=== PATIENT | male | born 1955 | race Two or more races ===

== ENCOUNTER 2020-02-05 05:52 | Inpatient (IN) | payer OTHER, BC ==
[~2020-02-05] VITALS: Ht 177.8 cm; Wt 110.2 kg
[2020-02-05 05:58] VITALS: BP 159/107
--- NOTE | 2020-02-05 05:58 | NUR ---
ED Nurse Note: pt ambulated into ed from home CO left sided chest pain x 1 day 12/10 with difficulty taking deep breaths. 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 Pt states he noticed intial onset of chest at this time. pt states pain increased after leaving work for the day and was unable to get up to call for help or take himself to the hospital. Pt aao x 4, grimacing, restless, ambulatory with steady gait. Awaiting further orders. Awaiting ERMD at bedside. Pt placed in bed, in gown, on monitor.
--- NOTE | 2020-02-05 06:00 | NUR ---
ED Nurse Note: ERMD at bedside
--- NOTE | 2020-02-05 06:03 | NUR ---
ED Nurse Note: RN at bedside for EKG
--- NOTE | 2020-02-05 06:15 | NUR ---
ED Nurse Note: all medications administered, pt tolerated well no ss of distress noted. will continue to monitor.
--- NOTE | 2020-02-05 06:19 | Emergency Room Report ---
History of Present Illness General Chief Complaint: Pain Source: Patient Present Illness HPI Patient is a 64-year-old male denies any significant past medical history presents to the ER complaining of chest pain. 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 He states it is diffuse. He states that it is intermittent. He denies any dizziness, diaphoresis, fever or chills. He denies any cough. He states that the pain is exacerbated by movement and deep inspiration. He complains of paresthesias. He denies any focal weakness. He denies any history of similar symptoms in the past. Patient states that he is a current smoker. He has not taken any medications for his pain. Allergies: Coded Allergies: No Known Allergies (Unverified , 02/05/20) COVID-19 Screening Contact w/high risk pt: Yes Experienced COVID-19 symptoms?: No COVID-19 Testing performed BASE PLY HAND: No Patient History Reviewed Nursing Documentation: PMH: Agreed; PSxH: Agreed Nursing Documentation-PMH Past Medical History: No Stated History Review of Systems All Other Systems: negative except mentioned in HPI Physical Exam Vital Signs Date Time Temp Pulse Resp B/P (MAP) Pulse Ox O2 Delivery O2 Flow Rate FiO2 02/05/20 05:53 98.2 96 15 159/107 (124) 93 Room Air Sp02 EP Interpretation: reviewed, normal General Appearance: alert, GCS 15, non-toxic, mild distress Head: normocephalic, atraumatic Eyes: bilateral eye normal inspection, bilateral eye PERRL ENT: hearing grossly normal, normal pharynx, no angioedema, normal voice Neck: full range of motion, supple/symm/no masses Respiratory: chest non-tender, rhonchi, speaking full sentences, other Cardiovascular #1: regular rate, rhythm, normal capillary refill Gastrointestinal: normal bowel sounds, non tender, soft, non-distended, no guarding, no rebound Rectal: deferred Musculoskeletal: normal range of motion, no calf tenderness, no lower extremity edema Neurologic: tip finisher III-XII nml as tested, oriented x3 Psychiatric: no suicidal/homicidal ideation Skin: other - BL LE venous stasis dermatitis Lymphatic: no adenopathy Medical Decision Making Diagnostic Impression: Primary Impression: Chest pain Additional Impression: Pneumonia ER Course PT given one SL nitro. On reevaluation he states that his pain has improved. He states that he feels like he can breathe easier. Second sublingual nitro has been administered. Patient also given 325 mg p.o. aspirin Patient's x-ray and CAT scan consistent with pneumonia. Blood cultures have been drawn. Patient started on azithromycin as well as cefepime. COVID-19 PCR is pending. 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 Patient has been started on Lovenox prophylactically. Will hold on Decadron as patient is not hypoxic. Laboratory Tests Test 02/05/20 06:11 02/05/20 08:45 02/05/20 09:00 White Blood Count 11.3 K/UL (4.8-10.8) H Red Blood Count 5.39 M/UL (4.70-6.10) Hemoglobin 15.8 G/DL (14.2-18.0) Hematocrit 45.1 % (42.0-52.0) Mean Corpuscular Volume 84 FL (80-99) Mean Corpuscular Hemoglobin 29.4 PG (27.0-31.0) Mean Corpuscular Hemoglobin Concent 35.1 G/DL (32.0-36.0) Red Cell Distribution Width 13.3 % (11.6-14.8) Platelet Count 250 K/UL (150-450) Mean Platelet Volume 6.9 FL (6.5-10.1) Neutrophils (%) (Auto) 76.1 % (45.0-75.0) H Lymphocytes (%) (Auto) 13.9 % (20.0-45.0) L Monocytes (%) (Auto) 7.8 % (1.0-10.0) Eosinophils (%) (Auto) 1.1 % (0.0-3.0) Basophils (%) (Auto) 1.1 % (0.0-2.0) Prothrombin Time 10.9 SEC (9.30-11.50) Prothrombin Time INR 1.0 (0.9-1.1) Activated Partial Thromboplast Time 28 SEC (23-33) D-Dimer 0.32 mg/L FEU (0.00-0.49) Sodium Level 139 MMOL/L (136-145) Potassium Level 4.2 MMOL/L (3.5-5.1) Chloride Level 104 MMOL/L (98-107) Carbon Dioxide Level 26 MMOL/L (21-32) Anion Gap 9 mmol/L (5-15) Blood Urea Nitrogen 11 mg/dL (7-18) Creatinine 0.9 MG/DL (0.55-1.30) Estimated Glomerular Filtration Rate > 60 mL/min (>60) Glucose Level 120 MG/DL (74-106) H Calcium Level 8.4 MG/DL (8.5-10.1) L Magnesium Level 1.8 MG/DL (1.8-2.4) Total Bilirubin 0.7 MG/DL (0.2-1.0) Aspartate Amino Transferase (AST) 23 U/L (15-37) Alanine Aminotransferase (ALT) 62 U/L (12-78) Alkaline Phosphatase 83 U/L (46-116) Troponin I 0.004 ng/mL (0.000-0.056) 0.015 ng/mL (0.000-0.056) Pro-B-Type Natriuretic Peptide 133 pg/mL (0-125) H Total Protein 7.4 G/DL (6.4-8.2) Albumin 3.8 G/DL (3.4-5.0) Globulin 3.6 g/dL Albumin/Globulin Ratio 1.1 (1.0-2.7) Lactic Acid Level 1.70 mmol/L (0.4-2.0) Microbiology Date/Time Source Procedure Growth Status 02/05/20 09:25 Nasopharynx SARS-CoV-2 RdRp Gene Assay - Final Complete EKG Diagnostic Results Troponin ordered: Yes When was troponin ordered?: Feb 05, 2020 EKG Time: 06:06 EP Interpretation: Camelia Owens MD Rate: normal - 95 bpm Rhythm: NSR ST Segments: no acute changes ASA given to the pt in ED: Yes Rhythm Strip Diag. Results Rhythm Strip Time: 06:34 EP Interpretation: yes - Camelia Owens MD Rate: 103 bpm Rhythm: no PVC's, no ectopy, other - Sinus tachycardia Chest X-Ray Diagnostic Results Chest X-Ray Diagnostic Results : Chest X-Ray Ordered: Yes # of Views/Limited/Complete: 1 View Indication: Chest Pain EP Interpretation: Yes Interpretation: no effusion, no pneumothorax, other - Right lower lobe infiltrate Impression: Other - Pneumonia Electronically Signed by: Camelia Owens MD Last Vital Signs Date Time Temp Pulse Resp B/P (MAP) Pulse Ox O2 Delivery O2 Flow Rate FiO2 02/05/20 05:53 98.2 96 15 159/107 (124) 93 Room Air Disposition: ADMITTED INPATIENT - Telemetry Condition: Critical Physician Consult: Dr. Mata Referrals: NOT CHOSEN IPA/,REFERRING (PCP) Additional Instructions: Please note that this report is being documented using [employer] technology. This can lead to erroneous entry secondary to incorrect interpretation by the dictating instrument. Camelia Owens M.D. Feb 05, 2020 06:19
[2020-02-05] MEDS: Nitroglycerin Subl 0.4mg tab SL PRN (06:26)
--- NOTE | 2020-02-05 06:30 | NUR ---
ED Nurse Note: pt received 3 tabs of SL nitroglycerin per ERMD. Pt states pain 10/10, HR 106 BP 166/100 before medication administration. Pt states pain 7/10 after inital dose with increased ability to breathe. pt recieved second dose of NTG and reports pain 6/10 with increased ability to breathe. pt recieved final dose of SL NTG and reports pain 4/10 with increased ability to breathe. Pt HR 98, BP 149/94. ERMD aware. will continue to monitor.
--- NOTE | 2020-02-05 06:40 | NUR ---
ED Nurse Note: all medications administered, pt tolerated well no ss of distress noted. will continue to monitor.
[2020-02-05] MEDS ORDERED: fentaNYL 100 mcg/2 mL IV ONE (06:45)
[2020-02-05 06:58] LABS: BASOPHILS % (AUTO) 1.1 % (0.0-2.0); EOSINOPHILS % (AUTO) 1.1 % (0.0-3.0); HEMATOCRIT 45.1 % (42.0-52.0); HEMOGLOBIN 15.8 G/DL (14.2-18.0); LYMPHOCYTES % (AUTO) 13.9 % (20.0-45.0); MEAN CORPUSCULAR VOLUME 84 FL (80-99); MONOCYTES % (AUTO) 7.8 % (1.0-10.0); NEUTROPHILS % (AUTO) 76.1 % (45.0-75.0); PLATELET COUNT 250 K/UL (150-450); RED BLOOD COUNT 5.39 M/UL (4.70-6.10); RED CELL DISTRIBUTION WIDTH 13.3 % (11.6-14.8); WHITE BLOOD COUNT 11.3 K/UL (4.8-10.8)
--- NOTE | 2020-02-05 07:07 | NUR ---
HAND-OFF: Report given to Torie Arnold Rn.
[2020-02-05 07:11] LABS: ANION GAP 9 mmol/L (5-15); BLOOD UREA NITROGEN 11 mg/dL (7-18); CALCIUM 8.4 MG/DL (8.5-10.1); CARBON DIOXIDE 26 MMOL/L (21-32); CHLORIDE 104 MMOL/L (98-107); CREATININE 0.9 MG/DL (0.55-1.30); POTASSIUM 4.2 MMOL/L (3.5-5.1); SODIUM 139 MMOL/L (136-145)
[2020-02-05 07:21] LABS: ALANINE AMINOTRANSFERASE 62 U/L (12-78); ALBUMIN 3.8 G/DL (3.4-5.0); ALBUMIN/GLOBULIN RATIO 1.1 (1.0-2.7); ALKALINE PHOSPHATASE 83 U/L (46-116); ASPARTATE AMINO TRANSFERASE 23 U/L (15-37); BILIRUBIN,TOTAL 0.7 MG/DL (0.2-1.0)
[2020-02-05] MEDS ORDERED: Omnipaque 350 100ml vial INJ PRN (07:30)
--- NOTE | 2020-02-05 07:36 | Diagnostic Imaging Report ---
EXAM: XR Chest, 1 View CLINICAL HISTORY: CP TECHNIQUE: Frontal view of the chest. COMPARISON: No relevant prior studies available. FINDINGS: Lungs: There is a patchy right basilar infiltrate indeterminate between atelectasis and pneumonia. Pleural space: Unremarkable. No pneumothorax. Heart: Unremarkable. No cardiomegaly. Mediastinum: Unremarkable. Bones/joints: Unremarkable. IMPRESSION: There is a patchy right basilar infiltrate indeterminate between atelectasis and pneumonia. Progress films recommended
[2020-02-05] MEDS ORDERED: Azithromycin 500 MG in NS 275 ML IV ONE (08:00)
[2020-02-05] MEDS ORDERED: Cefepime HCl 2 GM in D5W 55 ML IVPB ONE (08:00)
--- NOTE | 2020-02-05 08:40 | NUR ---
ED Nurse Note: established IV site on R AC 20G. Pt on bed, AOx4, VSS, noted with consistent back pain upon change of position, lactic, blood cultures and routine covid, collected, sent to labs.
--- NOTE | 2020-02-05 08:52 | NUR ---
ED Nurse Note: Pt taken to CT on stable condition.
--- NOTE | 2020-02-05 09:10 | NUR ---
ED Nurse Note: repeat trop collected, sent to lab
--- NOTE | 2020-02-05 09:30 | NUR ---
ED Nurse Note: rapid covid sent to lab
--- NOTE | 2020-02-05 09:40 | Diagnostic Imaging Report ---
EXAM: CT Angiography Chest With Intravenous Contrast CLINICAL HISTORY: PAIN TECHNIQUE: Axial computed tomographic angiography images of the chest with intravenous contrast. CTDI is 51.20 mGy and DLP is 504.80 mGy-cm. One or more of the following dose reduction techniques were used: automated exposure control, adjustment of the mA and/or kV according to patient size, use of iterative reconstruction technique. MIP reconstructed images were created and reviewed. COMPARISON: No relevant prior studies available. FINDINGS: Pulmonary arteries: Unremarkable. No pulmonary embolism. Aorta: No acute findings. No thoracic aortic aneurysm. Lungs: There are mild subpleural ground-glass and consolidating infiltrates in the dependent portions of both lower lobes and to lesser degree the upper lobes consistent with bilateral pneumonia. The infiltrates are typical for Covid 19. Pleural space: Unremarkable. No significant effusion. No pneumothorax. Heart: Unremarkable. No cardiomegaly. No significant pericardial effusion. No evidence of RV dysfunction. Bones/joints: No acute fracture. No dislocation. Soft tissues: Unremarkable. Lymph nodes: Unremarkable. No enlarged lymph nodes. IMPRESSION: There are mild subpleural ground-glass and consolidating infiltrates in the dependent portions of both lower lobes and to lesser degree the upper lobes consistent with bilateral pneumonia. The infiltrates are typical for Covid 19. No evidence of pulmonary embolus.
[2020-02-05 10:46] VITALS: BP 146/96
--- NOTE | 2020-02-05 12:55 | Cardiology Report ---
APPROVED REPORT EKG Measurement Heart [id number] <Conclusion> Normal sinus rhythm ST & T wave abnormality, consider inferior ischemia Abnormal ECG
[2020-02-05] MEDS ORDERED: Enoxaparin 40mg Inj SUBQ SCH (13:00)
[2020-02-05] MEDS ORDERED: Milk of Magnesia 30ml Ud ORAL PRN (13:15)
[2020-02-05] MEDS ORDERED: Miralax 17gm pkt ORAL PRN (13:15)
--- NOTE | 2020-02-05 13:45 | History and Physical Report ---
DATE OF ADMISSION: 02/05/2020 HISTORY OF PRESENT ILLNESS: This is a 64-year-old patient who was seen in the emergency room with complaints of chest pain and shortness of breath. He also reports shortness of breath. 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 The patient was seen and evaluated. He reports that he has diffuse back pain and chest pain. He also reported left-sided chest pain. He underwent imaging studies and a CT angiogram in the emergency room which did not show any pulmonary embolism; however, there were by bilateral ground-glass and consolidating infiltrates on chest CT suggestive of a pneumonic process. PAST MEDICAL HISTORY: None. ALLERGIES: None. PAST SURGICAL HISTORY: None. SOCIAL HISTORY: The patient admits to being a tobacco user. Denies any substance abuse or marijuana. REVIEW OF SYSTEMS: Denies any headaches, hematemesis, melena, or hematochezia. PHYSICAL EXAMINATION: GENERAL: Reveals an 64-year-old male. VITAL SIGNS: Blood pressure is 140/90, heart rate 84, respiratory rate 20, O2 saturation 98% on room air. HEENT: Unremarkable. CHEST: Clear breath sounds bilaterally. ABDOMEN: Soft. EXTREMITIES: There is no edema. NEUROLOGIC: Nonfocal. LABORATORY DATA: Lab testing shows white count 11.3, otherwise normal CBC and BMP. Troponin 0.04. Coags, D-dimer of 0.32. Rapid COVID-19 testing gene assay is negative initially. IMPRESSION: 1. High suspicion for COVID-19 pneumonia. 2. Initial negative rapid COVID-19 gene assay. 3. Smoker. DISCUSSION: Admit to the hospital. Start Decadron empirically. Repeat COVID-19 testing through lab. We will provide IV fluids, DVT prophylaxis. We will follow carefully. John Mata M.D. DR: Sophia JOB#: [id number] CC:
[2020-02-05 13:46] VITALS: BP 159/106
--- NOTE | 2020-02-05 13:47 | NUR ---
ED Nurse Note: Patient was connected to portable property appraiser and place supplemental oxyegn at 2LPM. Lunch Tray placed at the bed side. Pillow and blanket provided for comfort.
[2020-02-05] MEDS ORDERED: D5W w/KCl 20mEq 1,000 ML IV SCH (14:15)
[2020-02-05] MEDS: D5NS 1,000 ML IV SCH (14:27)
[2020-02-05] MEDS ORDERED: NO KNOWN MEDICATIONS (14:33)
[2020-02-05] MEDS: Enoxaparin 40mg Inj SUBQ SCH (15:00)
[2020-02-05] MEDS: Hydromorphone 0.5mg/0.5ml inj IVP PRN ×2 (15:11→20:28)
[2020-02-05 15:30] VITALS: BP 141/82
--- NOTE | 2020-02-05 15:34 | NUR ---
ED Nurse Note: Report given to Franco MATHEW of telemetry unit.
--- NOTE | 2020-02-05 15:35 | NUR ---
NURSE NOTES: Received hand-off report from PRIYANKA Chopra in the ED. Awaiting room 219-1 to be cleaned.
--- NOTE | 2020-02-05 16:11 | NUR ---
ED Nurse Note: patient transferred to telemetry unti with all his belongings. Transport 19 called.
--- NOTE | 2020-02-05 19:22 | NUR ---
NURSE HAND-OFF REPORT: Important Events on Shift: Admission Patient Status:full code, stable condition Diet: regular Pending Orders: [] Pending Results/Labs:[] Pending MD notification:[] Latest Vital Signs: Temperature 98.5 , Pulse 88 , B/P 159 /106 , Respiratory Rate 25 , O2 SAT 99 , Nasal Cannula, O2 Flow Rate 2.0 . Vital Sign Comment: [] EKG Rhythm: Sinus Rhythm Rhythm change?: N MD Notified?: Courtney Mata MD Response: No New Orders Received Latest Hassan Fall Score: 30 Fall Risk: Medium Risk Safety Measures: Call light Within Reach, Bed Alarm Zone 2, Side Rails Side Rails x2, Bed position Low and Locked. Fall Precautions: Yellow Socks Yellow Gown Patient Fall Education Report given to Teddy Morris RN.
--- NOTE | 2020-02-05 19:30 | NUR ---
NURSE NOTES: Pt received from PRIYANKA Gamez. Pt is resting comfortably in bed and reports mild pain in left shoulder. Pt is A/Ox4 and on bedrest due to weakness; Pt is incontinent. Pt has cardiac monitoring SR and asymptomatic. Pt is sating well on RA and breathing unlabored. Pt has RAC 20G patent with skin dry and intact. Bed is locked in lowest position with call light within reach. Will continue to monitor.
[2020-02-05 20:00] VITALS: BP 138/74
[2020-02-05] MEDS: Docusate 100mg cap ORAL SCH (20:28)
[2020-02-06] VITALS: BP 132/66
[2020-02-06] MEDS: D5NS 1,000 ML IV SCH ×2 (03:20→16:40)
[2020-02-06 04:00] VITALS: BP 128/68
--- NOTE | 2020-02-06 06:25 | NUR ---
NURSE HAND-OFF REPORT: Important Events on Shift:Pt continued scheduled medications and had AM labs drawn. Pt is on bedrest due to weakness Patient Status: Stable Diet: Regular Pending Orders: Pending Results/Labs:Am Labs Pending notification: Latest Vital Signs: Temperature 98.1 , Pulse 86 , B/P 128 /68 , Respiratory Rate 20 , O2 SAT 93 , Room Air, O2 Flow Rate 2.0 . Vital Sign Comment: VSS EKG Rhythm: Sinus Rhythm Rhythm change?: N MD Notified?: Courtney Mata MD Response: No New Orders Received Latest Hassan Fall Score: 30 Fall Risk: Medium Risk Safety Measures: Call light Within Reach, Bed Alarm Zone 2, Side Rails Side Rails x2, Bed position Low and Locked. Fall Precautions: Yellow Socks Patient Fall Education Report given to PRIYANKA Tsang.
--- NOTE | 2020-02-06 06:53 | NUR ---
NURSE NOTES: Received patient in bed awake. IV lines intact and patent. Patient complaining of left chest pain radiating to left back, 8. HOB elevated. Bed locked in low position. Call light within reach. Will continue plan of care.
[2020-02-06 08:00] VITALS: BP 142/78
[2020-02-06] MEDS: Enoxaparin 40mg Inj SUBQ SCH (08:47)
[2020-02-06] MEDS: Docusate 100mg cap ORAL SCH ×2 (08:47→21:00)
[2020-02-06] MEDS: Hydromorphone 0.5mg/0.5ml inj IVP PRN ×2 (08:48→16:50)
[2020-02-06 09:53] LABS: BASOPHILS % (AUTO) 0.5 % (0.0-2.0); EOSINOPHILS % (AUTO) 0.4 % (0.0-3.0); HEMATOCRIT 43.5 % (42.0-52.0); HEMOGLOBIN 15.3 G/DL (14.2-18.0); LYMPHOCYTES % (AUTO) 13.2 % (20.0-45.0); MEAN CORPUSCULAR VOLUME 82 FL (80-99); MONOCYTES % (AUTO) 5.4 % (1.0-10.0); NEUTROPHILS % (AUTO) 80.6 % (45.0-75.0); PLATELET COUNT 249 K/UL (150-450); RED BLOOD COUNT 5.29 M/UL (4.70-6.10); RED CELL DISTRIBUTION WIDTH 14.2 % (11.6-14.8)
[2020-02-06 10:39] LABS: ANION GAP 8 mmol/L (5-15); BLOOD UREA NITROGEN 13 mg/dL (7-18); CALCIUM 8.2 MG/DL (8.5-10.1); CARBON DIOXIDE 25 MMOL/L (21-32); CHLORIDE 105 MMOL/L (98-107); CREATININE 0.7 MG/DL (0.55-1.30); POTASSIUM 3.9 MMOL/L (3.5-5.1); SODIUM 138 MMOL/L (136-145)
[2020-02-06 12:00] VITALS: BP 156/92
--- NOTE | 2020-02-06 13:22 | Pulmonology Progress Note ---
Subjective Interval Events: Noted blood culture + for gm positive cocci Constitutional: Reports: no symptoms Respiratory: Reports: dry cough Cardiovascular: Denies: no symptoms, chest pain, palpitations, other Gastrointestinal/Abdominal: Denies: no symptoms, nausea, vomiting, diarrhea, constipation, blood in stool, bloating, other Allergies: Coded Allergies: No Known Allergies (Unverified , 02/05/20) Objective Last 24 Hour Vital Signs Date Time Temp Pulse Resp B/P (MAP) Pulse Ox O2 Delivery O2 Flow Rate FiO2 02/06/20 12:00 98.0 68 20 156/92 (113) 94 02/06/20 12:00 70 02/06/20 09:00 Room Air 02/06/20 08:00 97.6 82 20 142/78 (99) 97 02/06/20 08:00 67 02/06/20 04:00 61 02/06/20 04:00 98.1 86 20 128/68 (88) 93 02/06/20 00:00 88 02/06/20 00:00 97.4 81 18 132/66 (88) 96 02/05/20 21:00 Room Air 02/05/20 20:00 92 02/05/20 20:00 97.8 76 18 138/74 (95) 94 02/05/20 16:34 Room Air 02/05/20 16:11 98.5 84 25 159/106 99 Nasal Cannula 2.0 02/05/20 16:11 88 02/05/20 15:41 98.5 02/05/20 15:30 98.6 89 17 141/82 100 Nasal Cannula 2.0 02/05/20 13:46 98.5 84 25 159/106 99 Nasal Cannula 2.0 Intake and Output 02/05/20 02/06/20 19:00 07:00 Intake Total 275 ml 720 ml Output Total 250 ml 300 ml Balance 25 ml 420 ml Intake Oral 200 ml 720 ml IV Total 75 ml Output Urine Total 250 ml 300 ml # Voids 1 # Bowel Movements 1 Objective 02/06/2020 pt laying in bed; reports feeling better General Appearance: WD/WN, no acute distress HEENT: normocephalic, atraumatic Respiratory: chest wall non-tender Cardiovascular: normal rate, regular rhythm Abdomen: soft, non tender, other - obese Microbiology Date/Time Source Procedure Growth Status 02/05/20 09:25 Nasopharynx SARS-CoV-2 RdRp Gene Assay - Final Complete 02/05/20 08:45 Blood Blood Culture - Preliminary Resulted 02/05/20 08:20 Blood Blood Culture - Preliminary Resulted Laboratory Tests 02/06/20 09:10: White Blood Count 12.0H, Red Blood Count 5.29, Hemoglobin 15.3, Hematocrit 43.5, Mean Corpuscular Volume 82, Mean Corpuscular Hemoglobin 28.9, Mean Corpuscular Hemoglobin Concent 35.2, Red Cell Distribution Width 14.2, Platelet Count 249, Mean Platelet Volume 7.6, Neutrophils (%) (Auto) 80.6H, Lymphocytes (%) (Auto) 13.2L, Monocytes (%) (Auto) 5.4, Eosinophils (%) (Auto) 0.4, Basophils (%) (Auto) 0.5, Sodium Level 138, Potassium Level 3.9, Chloride Level 105, Carbon Dioxide Level 25, Anion Gap 8, Blood Urea Nitrogen 13, Creatinine 0.7, Estimat Glomerular Filtration Rate > 60, Glucose Level 161H, Calcium Level 8.2L Current Medications Medications (Trade) Dose Ordered Sig/Dennis Route PRN Reason Start Time Stop Time Status Last Admin Dose Admin Acetaminophen (Tylenol) 650 mg Q4H PRN ORAL Temp >100.5 02/05/20 13:15 03/06/20 13:14 Bisacodyl (Dulcolax) 10 mg HSPRN PRN RECTAL Constipation 02/05/20 13:15 05/05/20 13:14 Dexamethasone Sodium Phosphate (Decadron 4mg/ml vial) 6 mg DAILY IVP 02/05/20 15:00 05/05/20 14:59 02/06/20 08:46 Dextrose (Dextrose 50%) 25 ml Q30M PRN IV Hypoglycemia 02/05/20 13:15 05/05/20 13:14 Dextrose (Dextrose 50%) 50 ml Q30M PRN IV Hypoglycemia 02/05/20 13:15 05/05/20 13:14 Dextrose/Sodium Chloride 1,000 ml @ 75 mls/hr [id number] IV 02/05/20 14:00 03/06/20 13:59 02/06/20 03:20 Docusate Sodium (Colace) 100 mg EVERY 12 HOURS ORAL 02/05/20 21:00 03/06/20 20:59 02/06/20 08:47 Enoxaparin Sodium (Lovenox) 40 mg DAILY SUBQ 02/05/20 15:00 05/05/20 14:59 02/06/20 08:47 Hydromorphone HCl (Dilaudid) 0.5 mg Q4H PRN IVP For Pain 02/05/20 13:15 02/12/20 13:14 02/06/20 08:48 Iohexol (Omnipaque 350 100ml) 100 ml NOW PRN INJ Radiology Procedure 02/05/20 07:30 02/07/20 07:29 Magnesium Hydroxide (Mom) 30 ml HSPRN PRN ORAL Constipation 02/05/20 13:15 03/06/20 13:14 Nitroglycerin (Ntg) 0.4 mg Q5M PRN SL Prn Chest Pain 02/05/20 06:15 03/06/20 06:14 02/05/20 06:26 Ondansetron HCl (Zofran) 4 mg Q6H PRN IVP Nausea & Vomiting 02/05/20 13:15 03/06/20 13:14 Pantoprazole (Protonix) 40 mg DAILY ORAL 02/06/20 09:00 03/07/20 08:59 02/06/20 08:45 Polyethylene Glycol (Miralax) 17 gm HSPRN PRN ORAL Constipation 02/05/20 13:15 03/06/20 13:14 Vancomycin HCl 250 ml @ 166.667 mls/hr Q8HR IVPB 02/06/20 14:00 02/11/20 13:59 Vancomycin HCl (Vanco pharmacy to dose) 1 ea DAILY PRN MISC Per rx protocol 02/06/20 11:15 03/07/20 11:14 Assessment/Plan Assessment/Plan 1. High suspicion for COVID-19 pneumonia. - on Decadron - COVID-19 testing 02/05/2020 neg - repeat COVID-19 PCR pending - CTA 02/05/2020 ground-glass and consolidating infiltrates in the dependent portions of both lower lobes and to lesser degree the upper lobes consistent with bilateral pneumonia. No evidence of pulmonary embolus. 2. Initial negative rapid COVID-19 gene assay. 3. Smoker. 4. DVT ppx - on lovenox IV fluids 5. Hypertension 6. Bacteremia with gm positive coccii; will request ID eval; stared Vanco IV The care for this patient was discussed with my supervising physician. Seen and examined by Dr. Mata. The history of Gurmeet Horta has been reviewed and management options for him have been examined and discussed by John Mata. I have personally examined and interviewed the patient. Time spent for this case was approximately 31 minutes. Edilson Marinelli Feb 06, 2020 13:22 John Mata MD Feb 06, 2020 16:44
[2020-02-06] MEDS: Vancomycin 1.25gm/250ml Premix IVPB SCH ×2 (14:23→21:34)
[2020-02-06 16:00] VITALS: BP 161/96
--- NOTE | 2020-02-06 18:52 | NUR ---
NURSE NOTES: Patient verbalized chest pain reduced, ambulates without difficulty.
--- NOTE | 2020-02-06 18:53 | NUR ---
NURSE HAND-OFF REPORT: Important Events on Shift:vancomycin started Patient Status: alert, ambulatory steady gait Diet: reg Pending Orders: Pending Results/Labs: Pending MD notification: Latest Vital Signs: Temperature 98.0 , Pulse 74 , B/P 161 /96 , Respiratory Rate 20 , O2 SAT 99 , Room Air, O2 Flow Rate 2.0 . Vital Sign Comment: EKG Rhythm: Sinus Rhythm Rhythm change?: N MD Notified?: Courtney Mata MD Response: No New Orders Received Latest Hassan Fall Score: 30 Fall Risk: Medium Risk Safety Measures: Call light Within Reach, Bed Alarm Zone 2, Side Rails Side Rails x2, Bed position Low and Locked. Fall Precautions: Yellow Socks Patient Fall Education . Addendum: 02/06/20 at 1945 by Trinh Kapadia RN HAND-OFF: Report given to Divina MATHEW.
--- NOTE | 2020-02-06 19:30 | NUR ---
NURSE NOTES: Received pt and report from PRIYANKA Tsang. Observed pt resting in bed with both eyes open and watching television. Pt is A/Ox4. monitoring and evaluation advisor is in placed; pt is NSR. IV site intact, asymptomatic, and patent; running D5NS @ 75cc/hr. Bed is in the lowest position and locked. Call light and bedside table is within reach. No signs/symptoms of acute distress noted. Will continue plan of care.
[2020-02-06 20:00] VITALS: BP 132/82
--- NOTE | 2020-02-06 22:04 | Infectious Diseases Prog Note ---
Assessment/Plan Assessment/Plan Full consult dictated: A) 1) gram + bacteremia, sepsis, leukocytosis, ? endocarditis 2) pna - ? covid, ? cap 3) htn 4) allergies - nkda P) 1) vancomycin and doxycycline 2) check cultures, labs, covid-19 testing, chest x-ray, echo 3) will f/u 4) thank you Subjective Allergies: Coded Allergies: No Known Allergies (Unverified , 02/05/20) Objective Last 24 Hour Vital Signs Date Time Temp Pulse Resp B/P (MAP) Pulse Ox O2 Delivery O2 Flow Rate FiO2 02/06/20 16:00 74 02/06/20 16:00 98.0 70 20 161/96 (117) 99 02/06/20 12:00 98.0 68 20 156/92 (113) 94 02/06/20 12:00 70 02/06/20 09:00 Room Air 02/06/20 08:00 97.6 82 20 142/78 (99) 97 02/06/20 08:00 67 02/06/20 04:00 61 02/06/20 04:00 98.1 86 20 128/68 (88) 93 02/06/20 00:00 88 02/06/20 00:00 97.4 81 18 132/66 (88) 96 Height (Feet): 5 Height (Inches): 10.00 Weight (Pounds): 240 Microbiology Date/Time Source Procedure Growth Status 02/05/20 09:25 Nasopharynx SARS-CoV-2 RdRp Gene Assay - Final Complete 02/05/20 08:45 Blood Blood Culture - Preliminary Resulted 02/05/20 08:20 Blood Blood Culture - Preliminary Resulted Laboratory Tests Test 02/06/20 09:10 White Blood Count 12.0 K/UL (4.8-10.8) H Red Blood Count 5.29 M/UL (4.70-6.10) Hemoglobin 15.3 G/DL (14.2-18.0) Hematocrit 43.5 % (42.0-52.0) Mean Corpuscular Volume 82 FL (80-99) Mean Corpuscular Hemoglobin 28.9 PG (27.0-31.0) Mean Corpuscular Hemoglobin Concent 35.2 G/DL (32.0-36.0) Red Cell Distribution Width 14.2 % (11.6-14.8) Platelet Count 249 K/UL (150-450) Mean Platelet Volume 7.6 FL (6.5-10.1) Neutrophils (%) (Auto) 80.6 % (45.0-75.0) H Lymphocytes (%) (Auto) 13.2 % (20.0-45.0) L Monocytes (%) (Auto) 5.4 % (1.0-10.0) Eosinophils (%) (Auto) 0.4 % (0.0-3.0) Basophils (%) (Auto) 0.5 % (0.0-2.0) Sodium Level 138 MMOL/L (136-145) Potassium Level 3.9 MMOL/L (3.5-5.1) Chloride Level 105 MMOL/L (98-107) Carbon Dioxide Level 25 MMOL/L (21-32) Anion Gap 8 mmol/L (5-15) Blood Urea Nitrogen 13 mg/dL (7-18) Creatinine 0.7 MG/DL (0.55-1.30) Estimat Glomerular Filtration Rate > 60 mL/min (>60) Glucose Level 161 MG/DL (74-106) H Calcium Level 8.2 MG/DL (8.5-10.1) L Current Medications Medications (Trade) Dose Ordered Sig/Dennis Route PRN Reason Start Time Stop Time Status Last Admin Dose Admin Acetaminophen (Tylenol) 650 mg Q4H PRN ORAL Temp >100.5 02/05/20 13:15 03/06/20 13:14 Bisacodyl (Dulcolax) 10 mg HSPRN PRN RECTAL Constipation 02/05/20 13:15 05/05/20 13:14 Dexamethasone Sodium Phosphate (Decadron 4mg/ml vial) 6 mg DAILY IVP 02/05/20 15:00 05/05/20 14:59 02/06/20 08:46 Dextrose (Dextrose 50%) 25 ml Q30M PRN IV Hypoglycemia 02/05/20 13:15 05/05/20 13:14 Dextrose (Dextrose 50%) 50 ml Q30M PRN IV Hypoglycemia 02/05/20 13:15 05/05/20 13:14 Dextrose/Sodium Chloride 1,000 ml @ 75 mls/hr [id number] IV 02/05/20 14:00 03/06/20 13:59 02/06/20 03:20 Docusate Sodium (Colace) 100 mg EVERY 12 HOURS ORAL 02/05/20 21:00 03/06/20 20:59 02/06/20 08:47 Enoxaparin Sodium (Lovenox) 40 mg DAILY SUBQ 02/05/20 15:00 05/05/20 14:59 02/06/20 08:47 Hydromorphone HCl (Dilaudid) 0.5 mg Q4H PRN IVP For Pain 02/05/20 13:15 02/12/20 13:14 02/06/20 16:50 Iohexol (Omnipaque 350 100ml) 100 ml NOW PRN INJ Radiology Procedure 02/05/20 07:30 02/07/20 07:29 Magnesium Hydroxide (Mom) 30 ml HSPRN PRN ORAL Constipation 02/05/20 13:15 03/06/20 13:14 Nitroglycerin (Ntg) 0.4 mg Q5M PRN SL Prn Chest Pain 02/05/20 06:15 03/06/20 06:14 02/05/20 06:26 Ondansetron HCl (Zofran) 4 mg Q6H PRN IVP Nausea & Vomiting 02/05/20 13:15 03/06/20 13:14 Pantoprazole (Protonix) 40 mg DAILY ORAL 02/06/20 09:00 03/07/20 08:59 02/06/20 08:45 Polyethylene Glycol (Miralax) 17 gm HSPRN PRN ORAL Constipation 02/05/20 13:15 03/06/20 13:14 Vancomycin HCl 250 ml @ 166.667 mls/hr Q8HR IVPB 02/06/20 14:00 02/11/20 13:59 02/06/20 21:34 Vancomycin HCl (Vanco pharmacy to dose) 1 ea DAILY PRN MISC Per rx protocol 02/06/20 11:15 03/07/20 11:14 Kisha Salazar MD Feb 06, 2020 22:04
--- NOTE | 2020-02-06 23:15 | Consultation ---
DATE OF CONSULTATION: 02/06/2020 INFECTIOUS DISEASES CONSULTATION CONSULTING PHYSICIAN: Kisha Salazar MD. ATTENDING PHYSICIAN: John Mata MD. REFERRING PHYSICIAN: John Mata MD. REASON FOR CONSULTATION: Gram-positive bacteremia, sepsis, elevated white count, possible COVID infection, rule out community-acquired pneumonia. CHIEF COMPLAINT: The patient's chief complaint into the hospital is chest pain. HISTORY OF PRESENT ILLNESS: This is a very pleasant 64-year-old male who comes in to [facility] emergency room with chest pain. The patient also has shortness of breath. 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 The patient comes in also with back and chest pain. CT angiogram in the emergency room showed no pulmonary embolism, however, did show ground-glass opacities. There was concern that patient could have COVID-19 pneumonia and placed on isolation. COVID testing so far is negative x1 with rapid test. Repeat testing is pending. The patient also has elevated white count and possible sepsis. Workup also shows he has gram-positive blood cultures in multiple bottles. Infectious diseases consultation requested. The patient currently is on vancomycin for gram-positive bacteremia. I will also add doxycycline to cover atypical pneumonia. The patient also is on dexamethasone currently for possible COVID infection and pneumonia. Echo has also been ordered. MAR was noted. Orders were noted. Notes were reviewed. We will await identification of gram-positive bacteremia. We will continue vancomycin and doxycycline for pneumonia, also gram-positive bacteremia, and dexamethasone for COVID infection. REVIEW OF SYSTEMS: CONSTITUTIONAL: The patient has no fever, chills, night sweats. He came in with chest pain, back pain. CARDIAC: Chest pain. BACK: He had back pain. GASTROINTESTINAL: No nausea, vomiting, abdominal pain, diarrhea. GENITOURINARY: No dysuria or frequency. PULMONARY: No significant cough, congestion, . SKIN: No rash. EXTREMITIES: No pain. NEUROLOGIC: No seizures. PAST MEDICAL HISTORY: The patient has a past medical history of hypertension. No mention history of diabetes; however, he does have some hyperglycemia noted on the labs. No diabetes history however, he does have elevated blood sugars. ALLERGIES: He has no known drug allergies. No antibiotic allergies. SOCIAL HISTORY: Positive smoking. No alcohol or drug abuse. FAMILY HISTORY: Noncontributory. MEDICATIONS: Upon reviewing the MAR, the patient is on the following medications: He is on vancomycin, pantoprazole, docusate, dexamethasone, , vancomycin, doxycycline, polyethylene glycol, magnesium, bisacodyl, hydromorphone, acetaminophen. Outside medications noted and reconciliated. PHYSICAL EXAMINATION: VITAL SIGNS: Temperature is 98.0, pulse rate is 70, respiratory rate 20, blood pressure 161/96, saturation 99% on room air. GENERAL: The patient is alert, responsive, oriented x3. He is in COVID isolation. HEAD AND NECK: Oral exam, no thrush. Eye exam, no icterus. Normocephalic. Neck is supple. No JVD. HEART: Regular. No gallop or murmur. No friction rub. LUNGS: Few bilateral rhonchi. Possible rales. ABDOMEN: Soft. Positive bowel sounds. Nontender. SKIN: No rash. MUSCULOSKELETAL: No effusion. Legs are without cellulitis. PERIPHERAL VASCULAR: No cyanosis or gangrene. No septic arthritis. GENITOURINARY: No Brownlee. LINE SITES: Without phlebitis. NEUROLOGIC: Intact. Nonfocal. Alert and oriented. LABORATORY AND DIAGNOSTIC DATA: Creatinine 0.7. White count 12.0, hemoglobin 15.3. We will get a urinalysis if not done. LDH is 240. C-reactive protein is 1.0. Cultures, blood cultures in multiple bottles with gram-positive cocci in clusters, I think it is 4/4 bottles with gram-positive cocci in clusters. Rapid COVID testing negative. Followup PCR testing is pending. Chest x-ray initially showed patchy right basilar infiltrate, atelectasis versus pneumonia. CT scan of the chest showed ground-glass opacities and consolidating infiltrates. ASSESSMENT AND PLAN: 1. The patient has gram-positive bacteremia in 4/4 bottles. The patient could be septic with elevated white count. The patient must be ruled out for endocarditis. At this time, we will continue vancomycin for gram-positive bacteremia, sepsis, elevated white count. We will check surveillance blood cultures. Check echo, rule out endocarditis. Await identification of blood cultures. Continue vancomycin for now. 2. Possible COVID-19 infection with pneumonia, rule out community-acquired pneumonia. Initial COVID testing is negative. However, followup PCR testing is pending. Continue COVID isolation. Continue dexamethasone for now and we will add doxycycline for atypical pneumonia and community-acquired pneumonia coverage. In addition, he is also on vancomycin for Streptococcus pneumoniae coverage. Continue dexamethasone, doxycycline, vancomycin for possible COVID infection and community-acquired pneumonia. Check followup chest x-ray. Check COVID testing. Check mycoplasma Legionella. 3. Hypertension history. Blood pressure treatment primary care team. 4. Elevated blood sugars. Blood sugar treatment per primary care team. 5. No known drug allergies. 6. Social history is positive for smoking. 7. Family history is noncontributory. 8. MAR was noted. 9. Case was discussed with RN. 10. Continue treatment per primary consultants. Kisha Salazar M.D. DR: Josh JOB#: [id number] CC:
[2020-02-07] VITALS: BP 123/62
[2020-02-07 04:00] VITALS: BP 128/73
[2020-02-07] MEDS: Vancomycin 1.25gm/250ml Premix IVPB SCH ×2 (05:12→16:05)
[2020-02-07] MEDS: D5NS 1,000 ML IV SCH ×2 (05:13→19:00)
[2020-02-07 07:41] LABS: ANION GAP 7 mmol/L (5-15); BLOOD UREA NITROGEN 14 mg/dL (7-18); CALCIUM 7.8 MG/DL (8.5-10.1); CARBON DIOXIDE 26 MMOL/L (21-32); CHLORIDE 106 MMOL/L (98-107); CREATININE 0.6 MG/DL (0.55-1.30); POTASSIUM 4.1 MMOL/L (3.5-5.1); SODIUM 139 MMOL/L (136-145)
--- NOTE | 2020-02-07 07:57 | NUR ---
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 Patient Status: Stable Diet: Regular Pending Orders: 2D Echo Pending Results/Labs: AM Labs Pending MD notification: N Latest Vital Signs: Temperature 97.3 , Pulse 61 , B/P 128 /73 , Respiratory Rate 20 , O2 SAT 95 , Room Air, O2 Flow Rate 2.0 . EKG Rhythm: Sinus Rhythm Rhythm change?: N Latest Hassan Fall Score: 30 Fall Risk: Medium Risk Safety Measures: Call light Within Reach, Bed Alarm Zone 2, Side Rails Side Rails x2, Bed position Low and Locked. Fall Precautions: Yellow Socks Patient Fall Education Report given to PRIYANKA Licea.
[2020-02-07 08:00] VITALS: BP 158/94
[2020-02-07 08:05] LABS: BASOPHILS % (AUTO) 0.4 % (0.0-2.0); EOSINOPHILS % (AUTO) 0.3 % (0.0-3.0); HEMATOCRIT 40.4 % (42.0-52.0); HEMOGLOBIN 13.8 G/DL (14.2-18.0); LYMPHOCYTES % (AUTO) 19.5 % (20.0-45.0); MEAN CORPUSCULAR VOLUME 84 FL (80-99); MONOCYTES % (AUTO) 6.2 % (1.0-10.0); NEUTROPHILS % (AUTO) 73.6 % (45.0-75.0); PLATELET COUNT 245 K/UL (150-450); RED BLOOD COUNT 4.79 M/UL (4.70-6.10); RED CELL DISTRIBUTION WIDTH 13.2 % (11.6-14.8); WHITE BLOOD COUNT 11.1 K/UL (4.8-10.8)
--- NOTE | 2020-02-07 08:40 | NUR ---
NURSE NOTES: pt. was in bed and breakfast was eaten. pt is on cardiac rn showing no signs of cardiac or respiratory distress. IV is patent. pt complains of left shoulder pain radiating to his chest. bed is in the lowest position, locked, and call light within reach
[2020-02-07] MEDS: Docusate 100mg cap ORAL SCH ×2 (08:54→21:00)
[2020-02-07] MEDS: Enoxaparin 40mg Inj SUBQ SCH (08:56)
--- NOTE | 2020-02-07 11:13 | NUR ---
INSURANCE ALL CLINICALS/HP FAXED TO [facility] FX [phone]
[2020-02-07 12:00] VITALS: BP 145/85
--- NOTE | 2020-02-07 13:37 | NUR ---
CASE MANAGEMENT:REVIEW 64 YR OLD MALE WALKED INTO ER CC: BACK PAIN RADIATING TO CHEST SI: BILATERAL PNEUMONIA 98.2 96 15 159/107 93% ON RA WBC+11.3 IS: IV CEFEPIME IV AZITHROMYCIN 1L NS BOLUS X2 IV FENTANYL ASA PO : TO TELEMETRY
--- NOTE | 2020-02-07 15:45 | NUR ---
NURSE NOTES: notified YENI Sousa about latest labs, no new orders given.
[2020-02-07 16:00] VITALS: BP 130/85
--- NOTE | 2020-02-07 16:45 | NUR ---
NURSE NOTES: both IV sites on the right arm were infiltrated and new IV site on the left was done. medication was administered through new IV site
--- NOTE | 2020-02-07 16:51 | Pulmonology Progress Note ---
Subjective ROS Limited/Unobtainable: No Interval Events: Noted blood culture + for gm positive cocci Constitutional: Reports: no symptoms HEENT: Repors: no symptoms Respiratory: Reports: dry cough Cardiovascular: Denies: no symptoms, chest pain, palpitations, other Gastrointestinal/Abdominal: Denies: no symptoms, nausea, vomiting, diarrhea, constipation, blood in stool, bloating, other Allergies: Coded Allergies: No Known Allergies (Unverified , 02/05/20) Objective Last 24 Hour Vital Signs Date Time Temp Pulse Resp B/P (MAP) Pulse Ox O2 Delivery O2 Flow Rate FiO2 02/07/20 12:00 97.4 76 18 145/85 (105) 95 02/07/20 09:30 97.2 02/07/20 08:00 65 02/07/20 08:00 97.2 80 20 158/94 (115) 96 02/07/20 04:00 54 02/07/20 04:00 97.3 61 20 128/73 (91) 95 02/07/20 00:00 57 02/07/20 00:00 97.7 62 19 123/62 (82) 96 02/06/20 21:00 Room Air 02/06/20 20:00 67 02/06/20 20:00 97.6 68 19 132/82 (99) 96 Intake and Output 02/06/20 02/07/20 19:00 07:00 Intake Total 475 ml 1275 ml Output Total 600 ml Balance -125 ml 1275 ml Intake Oral 400 ml 450 ml IV Total 75 ml 825 ml Output Urine Total 600 ml # Voids 3 3 # Bowel Movements 2 Objective 02/07/2020 reports feeling better; COVID-19 PCR pending 02/06/2020 pt laying in bed; reports feeling better General Appearance: WD/WN, no acute distress HEENT: normocephalic, atraumatic Respiratory: chest wall non-tender Cardiovascular: normal rate, regular rhythm Abdomen: soft, non tender, other - obese Microbiology Date/Time Source Procedure Growth Status 02/05/20 09:25 Nasopharynx SARS-CoV-2 RdRp Gene Assay - Final Complete 02/05/20 08:45 Blood Blood Culture - Preliminary Staphylococcus Aureus Resulted 02/05/20 08:20 Blood Blood Culture - Preliminary Staphylococcus Aureus Resulted Laboratory Tests 02/07/20 04:50: White Blood Count 11.1H, Red Blood Count 4.79, Hemoglobin 13.8L, Hematocrit 40.4L, Mean Corpuscular Volume 84, Mean Corpuscular Hemoglobin 28.8, Mean Corpuscular Hemoglobin Concent 34.2, Red Cell Distribution Width 13.2, Platelet Count 245, Mean Platelet Volume 7.0, Neutrophils (%) (Auto) 73.6, Lymphocytes (%) (Auto) 19.5L, Monocytes (%) (Auto) 6.2, Eosinophils (%) (Auto) 0.3, Basophils (%) (Auto) 0.4, Sodium Level 139, Potassium Level 4.1, Chloride Level 106, Carbon Dioxide Level 26, Anion Gap 7, Blood Urea Nitrogen 14, Creatinine 0.6, Estimat Glomerular Filtration Rate > 60, Glucose Level 127H, Calcium Level 7.8L, Mycoplasma pneumoniae IgG Antibody [Pending], Mycoplasma pneumoniae IgM Ab Titer [Pending] 02/07/20 13:10: Vancomycin Level Trough 12.2H Current Medications Medications (Trade) Dose Ordered Sig/Dennis Route PRN Reason Start Time Stop Time Status Last Admin Dose Admin Acetaminophen (Tylenol) 650 mg Q4H PRN ORAL Temp >100.5 02/05/20 13:15 03/06/20 13:14 02/07/20 09:00 Bisacodyl (Dulcolax) 10 mg HSPRN PRN RECTAL Constipation 02/05/20 13:15 05/05/20 13:14 Dexamethasone Sodium Phosphate (Decadron 4mg/ml vial) 6 mg DAILY IVP 02/05/20 15:00 02/14/20 14:59 02/07/20 08:55 Dextrose (Dextrose 50%) 25 ml Q30M PRN IV Hypoglycemia 02/05/20 13:15 05/05/20 13:14 Dextrose (Dextrose 50%) 50 ml Q30M PRN IV Hypoglycemia 02/05/20 13:15 05/05/20 13:14 Dextrose/Sodium Chloride 1,000 ml @ 75 mls/hr [id number] IV 02/05/20 14:00 03/06/20 13:59 02/07/20 05:13 Docusate Sodium (Colace) 100 mg EVERY 12 HOURS ORAL 02/05/20 21:00 03/06/20 20:59 02/07/20 08:54 Doxycycline Hyclate 100 mg/ Dextrose 100 ml @ 100 mls/hr Q12HR IV 02/07/20 09:00 02/14/20 08:59 02/07/20 11:18 Enoxaparin Sodium (Lovenox) 40 mg DAILY SUBQ 02/05/20 15:00 05/05/20 14:59 02/07/20 08:56 Hydromorphone HCl (Dilaudid) 0.5 mg Q4H PRN IVP For Pain 02/05/20 13:15 02/12/20 13:14 02/06/20 16:50 Magnesium Hydroxide (Mom) 30 ml HSPRN PRN ORAL Constipation 02/05/20 13:15 03/06/20 13:14 Nitroglycerin (Ntg) 0.4 mg Q5M PRN SL Prn Chest Pain 02/05/20 06:15 03/06/20 06:14 02/05/20 06:26 Ondansetron HCl (Zofran) 4 mg Q6H PRN IVP Nausea & Vomiting 02/05/20 13:15 03/06/20 13:14 Pantoprazole (Protonix) 40 mg DAILY ORAL 02/06/20 09:00 03/07/20 08:59 02/07/20 08:57 Polyethylene Glycol (Miralax) 17 gm HSPRN PRN ORAL Constipation 02/05/20 13:15 03/06/20 13:14 Vancomycin HCl 250 ml @ 166.667 mls/hr Q8HR IVPB 02/06/20 14:00 02/07/20 18:00 02/07/20 05:12 Vancomycin HCl 300 ml @ 150 mls/hr Q8HR IVPB 02/07/20 22:00 02/12/20 21:59 Vancomycin HCl (Vanco pharmacy to dose) 1 ea DAILY PRN MISC Per rx protocol 02/06/20 11:15 03/07/20 11:14 Assessment/Plan Assessment/Plan 1. High suspicion for COVID-19 pneumonia; however initial Covid 19 testing negative. - on Decadron - COVID-19 testing 02/05/2020 neg - repeat COVID-19 PCR pending - CTA 02/05/2020 ground-glass and consolidating infiltrates in the dependent portions of both lower lobes and to lesser degree the upper lobes consistent with bilateral pneumonia. No evidence of pulmonary embolus. - Continue dexamethasone, doxycycline per ID - Saturating 93% on RA - Mycoplasma pneumoniae IgG and M. pneumoniae IgM titer pending 2. Initial negative rapid COVID-19 gene assay. 3. Smoker. 4. DVT ppx - on lovenox 5. Hypertension IV fluids We will follow carefully. The care for this patient was discussed with my supervising physician. Time spent for this case was approximately 31 minutes. The history of Gurmeet Horta has been reviewed and management options for him have been examined and discussed by John Mata. I have personally examined and interviewed the patient. Edilson Marinelli Feb 07, 2020 16:51 John Mata MD Feb 07, 2020 17:27
--- NOTE | 2020-02-07 19:31 | NUR ---
NURSE HAND-OFF REPORT: Important Events on Shift:[] endorsed plan of care. endorsed 2D echo of 60%. Patient Status: [] full code Diet: [] regular Pending Orders: [] PCR, AM labs Pending Results/Labs:[] Pending MD notification:[] Latest Vital Signs: Temperature 97.7 , Pulse 62 , B/P 130 /85 , Respiratory Rate 20 , O2 SAT 96 , Room Air, O2 Flow Rate 2.0 . Vital Sign Comment: [] EKG Rhythm: Sinus Rhythm Rhythm change?: N MD Notified?: Y -Dr. Esperanza INTERIANO Response: No New Orders Received Latest Adel Fall Score: 20 Fall Risk: Low Risk Safety Measures: Call light Within Reach, Bed Alarm Zone 1, Side Rails Side Rails x2, Bed position Low and Locked. Fall Precautions: Patient Fall Education Report given to []. Addendum: 02/07/20 at 1933 by Taiwo Coleman RN endorsed to Divina MATHEW
--- NOTE | 2020-02-07 19:34 | NUR ---
NURSE NOTES: Received pt and report from PRIYANKA Licea and PRIYANKA Maravilla. Observed pt sitting on side of bed with both feet on the ground and on cellphone. Pt is A/Ox4. panel monitor is in placed; pt is NSR. IV site intact, asymptomatic, and patent; running D5NS @ 75cc/hr. Bed is in the lowest position and locked. Call light and bedside table is within reach. No signs/symptoms of chest pain or acute distress noted. Will continue plan of care.
[2020-02-07 20:00] VITALS: BP 136/83
[2020-02-07] MEDS: Vancomycin 1.5gm/300ml Premix IVPB SCH (22:45)
[2020-02-08] VITALS: BP 156/79
[2020-02-08 04:00] VITALS: BP 148/74
[2020-02-08] MEDS: Vancomycin 1.5gm/300ml Premix IVPB SCH ×2 (05:35→14:20)
[2020-02-08 06:23] LABS: BASOPHILS % (AUTO) 0.7 % (0.0-2.0); EOSINOPHILS % (AUTO) 0.3 % (0.0-3.0); HEMATOCRIT 39.9 % (42.0-52.0); HEMOGLOBIN 13.7 G/DL (14.2-18.0); LYMPHOCYTES % (AUTO) 24.2 % (20.0-45.0); MEAN CORPUSCULAR VOLUME 85 FL (80-99); MONOCYTES % (AUTO) 5.9 % (1.0-10.0); NEUTROPHILS % (AUTO) 68.9 % (45.0-75.0); PLATELET COUNT 242 K/UL (150-450); RED BLOOD COUNT 4.72 M/UL (4.70-6.10); RED CELL DISTRIBUTION WIDTH 13.4 % (11.6-14.8); WHITE BLOOD COUNT 9.3 K/UL (4.8-10.8)
[2020-02-08 06:59] LABS: ALANINE AMINOTRANSFERASE 40 U/L (12-78); ALBUMIN 2.9 G/DL (3.4-5.0); ALBUMIN/GLOBULIN RATIO 0.9 (1.0-2.7); ALKALINE PHOSPHATASE 51 U/L (46-116); ANION GAP 6 mmol/L (5-15); ASPARTATE AMINO TRANSFERASE 18 U/L (15-37); BILIRUBIN,TOTAL 0.4 MG/DL (0.2-1.0); BLOOD UREA NITROGEN 13 mg/dL (7-18); CALCIUM 7.7 MG/DL (8.5-10.1); CARBON DIOXIDE 25 MMOL/L (21-32); CHLORIDE 108 MMOL/L (98-107); CREATININE 0.8 MG/DL (0.55-1.30); SODIUM 139 MMOL/L (136-145)
--- NOTE | 2020-02-08 07:35 | NUR ---
NURSE HAND-OFF REPORT: Important Events on Shift: No signs/symptoms of CP or SOB. 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 COVID PCR swab came back negative this morning. Endorsed to dayshift nurse. Patient Status: Stable Diet: Regular Pending Orders: N Pending Results/Labs: Vanco trough, blood cultures Pending MD notification: Awaiting to notify pt regarding negative COVID PCR result Latest Vital Signs: Temperature 97.2 , Pulse 61 , B/P 148 /74 , Respiratory Rate 20 , O2 SAT 95 , Room Air, O2 Flow Rate 2.0 . EKG Rhythm: Sinus Rhythm Rhythm change?: N Latest Hassan Fall Score: 20 Fall Risk: Low Risk Safety Measures: Call light Within Reach, Bed Alarm Zone 2, Side Rails Side Rails x2, Bed position Low and Locked. Fall Precautions: Yellow Socks Patient Fall Education Report given to PRIYANKA Licea.
[2020-02-08 08:00] VITALS: BP 151/82
--- NOTE | 2020-02-08 08:02 | NUR ---
NURSE NOTES: pt is awake in bed. breakfast was eaten. pt is on surveillance monitor showing no signs of cardiac or respiratory distress. IV is patent and intact. bed is in lowest position and locked. call is within reach and pt complains of no pain
[2020-02-08] MEDS: D5NS 1,000 ML IV SCH ×2 (08:55→21:40)
[2020-02-08] MEDS: Docusate 100mg cap ORAL SCH ×2 (08:56→21:00)
[2020-02-08] MEDS: Enoxaparin 40mg Inj SUBQ SCH (08:57)
--- NOTE | 2020-02-08 09:00 | NUR ---
NURSE NOTES: reported results from PCR test to Dr. Weinberg, waiting for order to take pt off from Isolation, he is (covid neg).
--- NOTE | 2020-02-08 10:54 | NUR ---
INSURANCE REFAXED ALL CLINICALS/REVIEW/HP FAXED TO [facility] (02/04-02/07) FX [phone]
[2020-02-08 12:00] VITALS: BP 156/104
--- NOTE | 2020-02-08 12:59 | Pulmonology Progress Note ---
Subjective ROS Limited/Unobtainable: No Interval Events: Noted blood culture + for gm positive cocci Constitutional: Reports: no symptoms HEENT: Repors: no symptoms Respiratory: Reports: dry cough Cardiovascular: Denies: no symptoms, chest pain, palpitations, other Gastrointestinal/Abdominal: Denies: no symptoms, nausea, vomiting, diarrhea, constipation, blood in stool, bloating, other Allergies: Coded Allergies: No Known Allergies (Unverified , 02/05/20) Objective Last 24 Hour Vital Signs Date Time Temp Pulse Resp B/P (MAP) Pulse Ox O2 Delivery O2 Flow Rate FiO2 02/08/20 08:00 76 02/08/20 08:00 97.5 66 18 151/82 (105) 95 02/08/20 04:00 52 02/08/20 04:00 97.2 61 20 148/74 (98) 95 02/08/20 00:00 97.6 61 19 156/79 (104) 95 02/08/20 00:00 61 02/07/20 21:00 Room Air 02/07/20 20:00 97.3 84 20 136/83 (100) 96 02/07/20 20:00 84 02/07/20 16:00 97.7 62 20 130/85 (100) 96 02/07/20 16:00 62 Intake and Output 02/07/20 02/08/20 19:00 07:00 Intake Total 555 ml 1285 ml Balance 555 ml 1285 ml Intake Oral 480 ml 460 ml IV Total 75 ml 825 ml # Voids 3 3 # Bowel Movements 1 1 Objective 02/08/2020 feeling better; COVID-19 PCR neg 02/07/2020 reports feeling better; COVID-19 PCR pending 02/06/2020 pt laying in bed; reports feeling better General Appearance: WD/WN, no acute distress HEENT: normocephalic, atraumatic Respiratory: chest wall non-tender, lungs clear Cardiovascular: normal rate, regular rhythm Abdomen: soft, non tender, other - obese Laboratory Tests 02/07/20 13:10: Vancomycin Level Trough 12.2H 02/08/20 05:50: White Blood Count 9.3, Red Blood Count 4.72, Hemoglobin 13.7L, Hematocrit 39.9L, Mean Corpuscular Volume 85, Mean Corpuscular Hemoglobin 29.0, Mean Corpuscular Hemoglobin Concent 34.3, Red Cell Distribution Width 13.4, Platelet Count 242, Mean Platelet Volume 7.8, Neutrophils (%) (Auto) 68.9, Lymphocytes (%) (Auto) 24.2, Monocytes (%) (Auto) 5.9, Eosinophils (%) (Auto) 0.3, Basophils (%) (Auto) 0.7, Sodium Level 139, Potassium Level 4.0, Chloride Level 108H, Carbon Dioxide Level 25, Anion Gap 6, Blood Urea Nitrogen 13, Creatinine 0.8, Estimat Glomerular Filtration Rate > 60, Glucose Level 109H, Calcium Level 7.7L, Total Bilirubin 0.4, Aspartate Amino Transf (AST/SGOT) 18, Alanine Aminotransferase (ALT/SGPT) 40, Alkaline Phosphatase 51, Total Protein 6.0L, Albumin 2.9L, Globulin 3.1, Albumin/Globulin Ratio 0.9L Current Medications Medications (Trade) Dose Ordered Sig/Dennis Route PRN Reason Start Time Stop Time Status Last Admin Dose Admin Acetaminophen (Tylenol) 650 mg Q4H PRN ORAL Temp >100.5 02/05/20 13:15 03/06/20 13:14 02/07/20 09:00 Bisacodyl (Dulcolax) 10 mg HSPRN PRN RECTAL Constipation 02/05/20 13:15 05/05/20 13:14 Dexamethasone Sodium Phosphate (Decadron 4mg/ml vial) 6 mg DAILY IVP 02/05/20 15:00 02/14/20 14:59 02/08/20 08:55 Dextrose (Dextrose 50%) 25 ml Q30M PRN IV Hypoglycemia 02/05/20 13:15 05/05/20 13:14 Dextrose (Dextrose 50%) 50 ml Q30M PRN IV Hypoglycemia 02/05/20 13:15 05/05/20 13:14 Dextrose/Sodium Chloride 1,000 ml @ 75 mls/hr [id number] IV 02/05/20 14:00 03/06/20 13:59 02/08/20 08:55 Docusate Sodium (Colace) 100 mg EVERY 12 HOURS ORAL 02/05/20 21:00 03/06/20 20:59 02/07/20 08:54 Doxycycline Hyclate 100 mg/ Dextrose 100 ml @ 100 mls/hr Q12HR IV 02/07/20 09:00 02/14/20 08:59 02/08/20 10:03 Enoxaparin Sodium (Lovenox) 40 mg DAILY SUBQ 02/05/20 15:00 05/05/20 14:59 02/08/20 08:57 Hydromorphone HCl (Dilaudid) 0.5 mg Q4H PRN IVP For Pain 02/05/20 13:15 02/12/20 13:14 02/06/20 16:50 Magnesium Hydroxide (Mom) 30 ml HSPRN PRN ORAL Constipation 02/05/20 13:15 03/06/20 13:14 Nitroglycerin (Ntg) 0.4 mg Q5M PRN SL Prn Chest Pain 02/05/20 06:15 03/06/20 06:14 02/05/20 06:26 Ondansetron HCl (Zofran) 4 mg Q6H PRN IVP Nausea & Vomiting 02/05/20 13:15 03/06/20 13:14 Pantoprazole (Protonix) 40 mg DAILY ORAL 02/06/20 09:00 03/07/20 08:59 02/08/20 08:55 Polyethylene Glycol (Miralax) 17 gm HSPRN PRN ORAL Constipation 02/05/20 13:15 03/06/20 13:14 Vancomycin HCl 300 ml @ 150 mls/hr Q8HR IVPB 02/07/20 22:00 02/12/20 21:59 02/08/20 05:35 Vancomycin HCl (Vanco pharmacy to dose) 1 ea DAILY PRN MISC Per rx protocol 02/06/20 11:15 03/07/20 11:14 Assessment/Plan Assessment/Plan 1. High suspicion for COVID-19 pneumonia. - on Decadron - COVID-19 testing 02/05/2020 neg - repeat COVID-19 PCR neg - CTA 02/05/2020 ground-glass and consolidating infiltrates in the dependent portions of both lower lobes and to lesser degree the upper lobes consistent with bilateral pneumonia. No evidence of pulmonary embolus. - Continue dexamethasone, doxycycline per ID - Saturating 93% on RA - Mycoplasma pneumoniae IgG and M. pneumoniae IgM titer pending 2. Initial negative rapid COVID-19 gene assay as well as follow up pcr. 3. Smoker. 4. DVT ppx - on lovenox 5. Hypertension 6. Blood culture positive for gram positive cocci staph aureus - on Abx - May need FERNY; consulted cardiology IV fluids We will follow carefully. The care for this patient was discussed with my supervising physician. Time spent for this case was approximately 31 minutes. The history of Gurmeet Horta has been reviewed and management options for him have been examined and discussed by John Mata. I have personally examined and interviewed the patient. Edilson Marinelli Feb 08, 2020 12:59 John Mata MD Feb 08, 2020 16:15
--- NOTE | 2020-02-08 15:31 | NUR ---
CASE MANAGEMENT:REVIEW 02/08/20 SI: BILATERAL PNA 97.2 52 20 148/74 95% ON RA CA-7.7 IS: IV VANCOMYCIN Q8HRS IV DOXYCYCLINE Q12 IV DECADRON QD LOVENOX SQ QD IVF@75/HR : TELEMETRY STATUS PLAN: F/U ON BLOOD CX GROWING GPC IN [facility]
[2020-02-08 16:00] VITALS: BP 158/91
--- NOTE | 2020-02-08 19:10 | Cardiology Progress Note ---
Assessment/Plan Assessment/Plan [id number] hep c hs partially treated at [facility] hematuria hs in [facility] past 1week hemaotochezina hs chest pain possible M/S infiltrate bilat bacteremin drug free for 28 years hsi of ivda chest pain ekg neg trop negh echo normal wall motion ct finding reprotedly highley suggestive of covid 19 has had hematuria and hemtochezia in [place] past few day has had egd and colononscopy was neg her pt [facility] he got treated for hep c s/p treatmegtn Subjective Cardiovascular: Reports: chest pain - resolved ; Denies: irregular heart rate, lightheadedness, palpitations, syncope Respiratory: Reports: cough - resolved ; Denies: shortness of breath, SOB at rest Gastrointestinal/Abdominal: Reports: blood in stool - last time was 2 weekago had bloody bm ; Denies: abdominal pain, constipated, diarrhea, vomiting Genitourinary: Reports: hematuria - resolved 5-6 days ago ; Denies: burning - resolved Objective Last 24 Hour Vital Signs Date Time Temp Pulse Resp B/P (MAP) Pulse Ox O2 Delivery O2 Flow Rate FiO2 02/08/20 16:00 57 02/08/20 16:00 97.2 60 18 158/91 (113) 98 02/08/20 12:00 68 02/08/20 12:00 97.7 66 20 156/104 (121) 97 02/08/20 09:00 Room Air 02/08/20 08:00 76 02/08/20 08:00 97.5 66 18 151/82 (105) 95 02/08/20 04:00 52 02/08/20 04:00 97.2 61 20 148/74 (98) 95 02/08/20 00:00 97.6 61 19 156/79 (104) 95 02/08/20 00:00 61 02/07/20 21:00 Room Air 02/07/20 20:00 97.3 84 20 136/83 (100) 96 02/07/20 20:00 84 Intake and Output 02/07/20 02/08/20 19:00 07:00 Intake Total 555 ml 1285 ml Balance 555 ml 1285 ml Intake Oral 480 ml 460 ml IV Total 75 ml 825 ml # Voids 3 3 # Bowel Movements 1 1 Laboratory Tests Test 02/08/20 05:50 White Blood Count 9.3 K/UL (4.8-10.8) Red Blood Count 4.72 M/UL (4.70-6.10) Hemoglobin 13.7 G/DL (14.2-18.0) L Hematocrit 39.9 % (42.0-52.0) L Mean Corpuscular Volume 85 FL (80-99) Mean Corpuscular Hemoglobin 29.0 PG (27.0-31.0) Mean Corpuscular Hemoglobin Concent 34.3 G/DL (32.0-36.0) Red Cell Distribution Width 13.4 % (11.6-14.8) Platelet Count 242 K/UL (150-450) Mean Platelet Volume 7.8 FL (6.5-10.1) Neutrophils (%) (Auto) 68.9 % (45.0-75.0) Lymphocytes (%) (Auto) 24.2 % (20.0-45.0) Monocytes (%) (Auto) 5.9 % (1.0-10.0) Eosinophils (%) (Auto) 0.3 % (0.0-3.0) Basophils (%) (Auto) 0.7 % (0.0-2.0) Sodium Level 139 MMOL/L (136-145) Potassium Level 4.0 MMOL/L (3.5-5.1) Chloride Level 108 MMOL/L (98-107) H Carbon Dioxide Level 25 MMOL/L (21-32) Anion Gap 6 mmol/L (5-15) Blood Urea Nitrogen 13 mg/dL (7-18) Creatinine 0.8 MG/DL (0.55-1.30) Estimat Glomerular Filtration Rate > 60 mL/min (>60) Glucose Level 109 MG/DL (74-106) H Calcium Level 7.7 MG/DL (8.5-10.1) L Total Bilirubin 0.4 MG/DL (0.2-1.0) Aspartate Amino Transf (AST/SGOT) 18 U/L (15-37) Alanine Aminotransferase (ALT/SGPT) 40 U/L (12-78) Alkaline Phosphatase 51 U/L (46-116) Total Protein 6.0 G/DL (6.4-8.2) L Albumin 2.9 G/DL (3.4-5.0) L Globulin 3.1 g/dL Albumin/Globulin Ratio 0.9 (1.0-2.7) L Microbiology Date/Time Source Procedure Growth Status 02/07/20 05:00 Blood Blood Culture - Preliminary Resulted 02/07/20 04:40 Blood Blood Culture - Preliminary Resulted Manan Awan MD Feb 08, 2020 19:10
--- NOTE | 2020-02-08 19:40 | NUR ---
NURSE NOTES: Received pt and report from PRIYANKA Licea and PRIYANKA Maravilla. Observed pt resting in bed and talking on his cellphone. Pt is A/Ox4. desk monitor is in placed; pt is NSR. IV site intact, asymptomatic, and patent; running D5NS @ 75cc/hr. Bed is in the lowest position and locked. Call light and bedside table is within reach. No signs/symptoms of chest pain or acute distress noted. Will continue plan of care.
--- NOTE | 2020-02-08 19:54 | NUR ---
NURSE HAND-OFF REPORT: Important Events on Shift:[] pt is positive for gram + cocci in clusters one bottle notified doctor Lenard PCR neg Patient Status: []full Diet: []regular Pending Orders: [] Pending Results/Labs:[] Pending MD notification:[] Latest Vital Signs: Temperature 97.2 , Pulse 57 , B/P 158 /91 , Respiratory Rate 18 , O2 SAT 98 , Room Air, O2 Flow Rate 2.0 . Vital Sign Comment: [] EKG Rhythm: Sinus Bradycardia Rhythm change?: Y MD Notified?: Lula JAIME MD Response: No New Orders Received Latest Hassan Fall Score: 20 Fall Risk: Low Risk Safety Measures: Call light Within Reach, Bed Alarm Zone 2, Side Rails Side Rails x2, Bed position Low and Locked. Fall Precautions: n Yellow Socks y Patient Fall Education Report given to []. Divina/PRIYANKA
[2020-02-08 20:00] VITALS: BP 142/88
--- NOTE | 2020-02-08 20:45 | Consultation ---
DATE OF CONSULTATION: 02/08/2020 CARDIOLOGY CONSULTATION CONSULTING PHYSICIAN: Manan Awan MD REFERRING PHYSICIAN: John Mata MD REASON FOR REFERRAL: Bacteremia. HISTORY OF PRESENT ILLNESS: This is a middle-aged gentleman who I did not actually physically see because of pending COVID-19 screening with highly suspicious clinical status. The patient was admitted to the hospital on 02/05/2020 and information is obtained from review of the patient's chart. He has no significant past history, came to the emergency room complaining of chest pain. 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 He denied any dizziness or diaphoresis. No fevers or chills or any cough. He stated that the pain was exacerbated by movement and deep inspiration and denies any focal weakness. No similar history previously. He is a current smoker. The patient was admitted to the hospital and after a CT scan finding in the emergency room showed some ground-glass opacities bilaterally and because of his work in the hospital nature of his work, he was felt to be highly suspicious for possibility of a COVID infection despite having rapid testing in the emergency room. Patient has been seen by Dr. Salazar and has been started on treatment for possibility of COVID pending results of his PCR. The patient reported dry cough and apparently no chest pain to the staff. PAST MEDICAL HISTORY: According to the chart apparently negative. ALLERGIES: None. SOCIAL HISTORY: Admits to tobacco use. Denies any substance abuse or marijuana. PHYSICAL EXAMINATION: Performed today by other staff showed: GENERAL: No acute distress. CHEST: Chest wall nontender. LUNGS: Clear. CARDIAC: Showed regular rate and rhythm. ABDOMEN: Soft, nontender, and obese. LABORATORY VALUES: Sodium 139, potassium 4.0, chloride 108, bicarb 25, BUN of 13, creatinine 0.8, glucose of 109 up to 161, calcium 7.7. Liver function tests are normal. Albumin of 2.9. His white count 9.3, down from 11.3 at time of admission with hemoglobin 13.7, platelet count 242. His coags, INR 1.0, PTT of 28. His D-dimer was only 0.32 and his troponins on 2 separate occasions were negative. Serology, mycoplasma IgG and IgM titers are pending at this time. Microbiology, 2 sets of blood cultures growing Staph aureus. Coronavirus PCR rapid test was not detected. Blood cultures repeated show gram-positive cocci in clusters. The patient had a chest x-ray that was read as patchy right basilar infiltrate independent between atelectasis and pneumonia. CT scan of the chest on 02/05/2020 showed pulmonary arteries, no pulmonary embolism. Aorta, no aneurysm. Lungs supple. Ground-glass infiltrates dependent portion of both lungs. Bilateral pneumonia. The infiltrates are typical for COVID-19. Heart felt to be unremarkable. An EKG in the emergency room shows normal sinus rhythm, no significant ST or T-wave abnormalities being documented. Echocardiogram has been performed, which I reviewed briefly myself, this is a technically difficult study. LV function appears to be normal. No significant valvular pathology. The quality of the study is rather poor for dependence for vegetation. ASSESSMENT AND PLAN: 1. Atypical chest pain. No evidence of myonecrosis. 2. Pneumonia. 3. Bacteremia with Staph aureus. 4. History of tobacco use. This patient was seen in cardiac consultation. Two cardiac enzymes are negative. EKG initially was negative. Wall motion appears to be grossly normal. EKG will be repeated. Troponin will be repeated. Patient has indicated some component of motion exacerbating the chest. It is possible that this pain is related to musculoskeletal. I will follow up on the patient once the results of COVID testing is available and further recommendations. The patient may require transesophageal echocardiogram only if COVID testing remains negative. The CT scan findings reportedly highly suspicious and typical for COVID-19 infection. Therefore, we will wait for repeat testing and further evaluation by Dr. Salazar. Manan Awan M.D. DR: KAMERON JOB#: [id number] CC:
--- NOTE | 2020-02-08 23:23 | Infectious Diseases Prog Note ---
Assessment/Plan Assessment/Plan ASSESSMENT AND PLAN: 1. staph aureus bacteremia/mssa, ? source, ? endocarditis, sepsis, leukocytosis, ? CAP, ? septic emboli, covid-19 testing negative x 2 - cefazolin, doxycycline - CT abdomen and pelvis - f/u on TTE - consider FERNY - monitor labs and surveillance blood cultures 2. covid-19 testing negative x 2 - consider remove isolation 3. Hypertension history. Blood pressure treatment primary care team. 4. Elevated blood sugars. Blood sugar treatment per primary care team. 5. No known drug allergies. 6. Social history is positive for smoking. 7. Family history is noncontributory. 8. MAR was noted. 9. Case was discussed with RN. 10. Continue treatment per primary consultants. Subjective Constitutional: Reports: fatigue; Denies: fever HEENT: Denies: congestion Respiratory: Denies: shortness of breath Cardiovascular: Denies: chest pain Gastrointestinal/Abdominal: Denies: nausea, vomiting, diarrhea Genitourinary: Denies: dysuria, hematuria Neurologic: Denies: headache, numbness, weakness Psychiatric: Denies: depression Skin: Denies: rash Hematologic: Denies: bleeding Musculoskeletal: Denies: pain Allergies: Coded Allergies: No Known Allergies (Unverified , 02/05/20) Objective Last 24 Hour Vital Signs Date Time Temp Pulse Resp B/P (MAP) Pulse Ox O2 Delivery O2 Flow Rate FiO2 02/08/20 21:00 Room Air 02/08/20 20:00 97.5 63 19 142/88 (106) 96 02/08/20 16:00 57 02/08/20 16:00 97.2 60 18 158/91 (113) 98 02/08/20 12:00 68 02/08/20 12:00 97.7 66 20 156/104 (121) 97 02/08/20 09:00 Room Air 02/08/20 08:00 76 02/08/20 08:00 97.5 66 18 151/82 (105) 95 02/08/20 04:00 52 02/08/20 04:00 97.2 61 20 148/74 (98) 95 02/08/20 00:00 97.6 61 19 156/79 (104) 95 02/08/20 00:00 61 Height (Feet): 5 Height (Inches): 10.00 Weight (Pounds): 240 General Appearance: no acute distress HEENT: normocephalic, atraumatic, anicteric, mucous membranes moist Respiratory/Chest: lungs clear, normal breath sounds, no respiratory distress Cardiovascular: normal rate, regular rhythm, no gallop/murmur Abdomen: normal bowel sounds, soft, non tender, no organomegaly, non distended Genitourinary: other - no joseph Extremities: no cyanosis Skin: no rash 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 The infiltrates are typical for Covid 19. No evidence of pulmonary embolus. Microbiology Date/Time Source Procedure Growth Status 02/07/20 05:00 Blood Blood Culture - Preliminary Resulted 02/05/20 09:25 Nasopharynx SARS-CoV-2 RdRp Gene Assay - Final Complete Microbiology Date/Time Source Procedure Growth Status 02/07/20 05:00 Blood Blood Culture - Preliminary Resulted 02/07/20 04:40 Blood Blood Culture - Preliminary Resulted Laboratory Tests Test 02/08/20 05:50 02/08/20 21:00 White Blood Count 9.3 K/UL (4.8-10.8) Red Blood Count 4.72 M/UL (4.70-6.10) Hemoglobin 13.7 G/DL (14.2-18.0) L Hematocrit 39.9 % (42.0-52.0) L Mean Corpuscular Volume 85 FL (80-99) Mean Corpuscular Hemoglobin 29.0 PG (27.0-31.0) Mean Corpuscular Hemoglobin Concent 34.3 G/DL (32.0-36.0) Red Cell Distribution Width 13.4 % (11.6-14.8) Platelet Count 242 K/UL (150-450) Mean Platelet Volume 7.8 FL (6.5-10.1) Neutrophils (%) (Auto) 68.9 % (45.0-75.0) Lymphocytes (%) (Auto) 24.2 % (20.0-45.0) Monocytes (%) (Auto) 5.9 % (1.0-10.0) Eosinophils (%) (Auto) 0.3 % (0.0-3.0) Basophils (%) (Auto) 0.7 % (0.0-2.0) Sodium Level 139 MMOL/L (136-145) Potassium Level 4.0 MMOL/L (3.5-5.1) Chloride Level 108 MMOL/L (98-107) H Carbon Dioxide Level 25 MMOL/L (21-32) Anion Gap 6 mmol/L (5-15) Blood Urea Nitrogen 13 mg/dL (7-18) Creatinine 0.8 MG/DL (0.55-1.30) Estimat Glomerular Filtration Rate > 60 mL/min (>60) Glucose Level 109 MG/DL (74-106) H Calcium Level 7.7 MG/DL (8.5-10.1) L Total Bilirubin 0.4 MG/DL (0.2-1.0) Aspartate Amino Transf (AST/SGOT) 18 U/L (15-37) Alanine Aminotransferase (ALT/SGPT) 40 U/L (12-78) Alkaline Phosphatase 51 U/L (46-116) Total Protein 6.0 G/DL (6.4-8.2) L Albumin 2.9 G/DL (3.4-5.0) L Globulin 3.1 g/dL Albumin/Globulin Ratio 0.9 (1.0-2.7) L Vancomycin Level Trough 28.1 ug/mL (5.0-12.0) H Current Medications Medications (Trade) Dose Ordered Sig/Dennis Route PRN Reason Start Time Stop Time Status Last Admin Dose Admin Acetaminophen (Tylenol) 650 mg Q4H PRN ORAL Temp >100.5 02/05/20 13:15 03/06/20 13:14 02/08/20 23:08 Bisacodyl (Dulcolax) 10 mg HSPRN PRN RECTAL Constipation 02/05/20 13:15 05/05/20 13:14 Dexamethasone Sodium Phosphate (Decadron 4mg/ml vial) 6 mg DAILY IVP 02/05/20 15:00 02/14/20 14:59 02/08/20 08:55 Dextrose (Dextrose 50%) 25 ml Q30M PRN IV Hypoglycemia 02/05/20 13:15 05/05/20 13:14 Dextrose (Dextrose 50%) 50 ml Q30M PRN IV Hypoglycemia 02/05/20 13:15 05/05/20 13:14 Dextrose/Sodium Chloride 1,000 ml @ 75 mls/hr [id number] IV 02/05/20 14:00 03/06/20 13:59 02/08/20 21:40 Docusate Sodium (Colace) 100 mg EVERY 12 HOURS ORAL 02/05/20 21:00 03/06/20 20:59 02/07/20 08:54 Doxycycline Hyclate 100 mg/ Dextrose 100 ml @ 100 mls/hr Q12HR IV 02/07/20 09:00 02/14/20 08:59 02/08/20 21:36 Enoxaparin Sodium (Lovenox) 40 mg DAILY SUBQ 02/05/20 15:00 05/05/20 14:59 02/08/20 08:57 Hydromorphone HCl (Dilaudid) 0.5 mg Q4H PRN IVP For Pain 02/05/20 13:15 02/12/20 13:14 02/06/20 16:50 Magnesium Hydroxide (Mom) 30 ml HSPRN PRN ORAL Constipation 02/05/20 13:15 03/06/20 13:14 Nitroglycerin (Ntg) 0.4 mg Q5M PRN SL Prn Chest Pain 02/05/20 06:15 03/06/20 06:14 02/05/20 06:26 Ondansetron HCl (Zofran) 4 mg Q6H PRN IVP Nausea & Vomiting 02/05/20 13:15 03/06/20 13:14 Pantoprazole (Protonix) 40 mg DAILY ORAL 02/06/20 09:00 03/07/20 08:59 02/08/20 08:55 Polyethylene Glycol (Miralax) 17 gm HSPRN PRN ORAL Constipation 02/05/20 13:15 03/06/20 13:14 Vancomycin HCl 250 ml @ 166.667 mls/hr Q8HR IVPB 02/09/20 06:00 02/14/20 05:59 Vancomycin HCl (Vanco pharmacy to dose) 1 ea DAILY PRN MISC Per rx protocol 02/06/20 11:15 03/07/20 11:14 Kisha Salazar MD Feb 08, 2020 23:23
[2020-02-09] VITALS: BP 135/83
[2020-02-09] MEDS: ceFAZolin 2gm/50ml Premix 50 ML IV SCH ×3 (00:23→16:02)
--- NOTE | 2020-02-09 01:11 | NUR ---
NURSE NOTES: Got report from SHIRLEY MATHEW. Pt resting in bed comfortably w/ no s/s of distress or discomfort noted. Pt is A+Ox4 ambulatory steady. Pt denies any pain or discomfort. Pt on room air sating 95%. awake overnight monitor showing NSR. Pt has R FA 22g saline locked intact, asymptomatic, and patent. Bed is in the lowest position and locked. Call light and bedside table is within reach. No signs/symptoms of chest pain or acute distress noted. Continue to monitor. Addendum: 02/10/20 at 0117 by Heron Blum RN Please Disregard this note wrong time
[2020-02-09 04:00] VITALS: BP 146/75
[2020-02-09] MEDS ORDERED: Vancomycin 1.25gm/250ml Premix IVPB SCH (06:00)
--- NOTE | 2020-02-09 07:17 | NUR ---
NURSE NOTES: Received pt from Divina RN. Pt in bed awake and alert. Bed low and locked call light within reach. D5 not running, will follow up with Dr Mata if he wants to continue hydration.
--- NOTE | 2020-02-09 07:28 | NUR ---
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 Patient Status: Stable Diet: NPO Pending Orders: CT abdomen/pelvic w/o contrast Pending Results/Labs: AM Labs Pending MD notification: N Latest Vital Signs: Temperature 97.2 , Pulse 49 , B/P 146 /75 , Respiratory Rate 20 , O2 SAT 97 , Room Air, O2 Flow Rate 2.0 . EKG Rhythm: Sinus Bradycardia Rhythm change?: Y Notified?: Y -Dr. Emperatriz INTERIANO Response: Message left await call Latest Hassan Fall Score: 20 Fall Risk: Low Risk Safety Measures: Call light Within Reach, Bed Alarm Zone 2, Side Rails Side Rails x2, Bed position Low and Locked. Fall Precautions: Yellow Socks Patient Fall Education Report given to PRIYANKA Sorensen.
[2020-02-09 08:00] VITALS: BP 142/68
[2020-02-09] MEDS: Docusate 100mg cap ORAL SCH ×2 (08:21→20:54)
[2020-02-09] MEDS: Enoxaparin 40mg Inj SUBQ SCH (08:23)
[2020-02-09 08:39] LABS: EOSINOPHILS % (AUTO) 0.4 % (0.0-3.0); HEMATOCRIT 43.9 % (42.0-52.0); HEMOGLOBIN 15.4 G/DL (14.2-18.0); LYMPHOCYTES % (AUTO) 31.3 % (20.0-45.0); MEAN CORPUSCULAR VOLUME 82 FL (80-99); MONOCYTES % (AUTO) 6.4 % (1.0-10.0); NEUTROPHILS % (AUTO) 60.9 % (45.0-75.0); PLATELET COUNT 274 K/UL (150-450); RED BLOOD COUNT 5.33 M/UL (4.70-6.10); RED CELL DISTRIBUTION WIDTH 14.2 % (11.6-14.8); WHITE BLOOD COUNT 10.9 K/UL (4.8-10.8)
[2020-02-09 09:00] LABS: ALANINE AMINOTRANSFERASE 81 U/L (12-78); ALBUMIN 3.3 G/DL (3.4-5.0); ALKALINE PHOSPHATASE 56 U/L (46-116); ANION GAP 5 mmol/L (5-15); ASPARTATE AMINO TRANSFERASE 32 U/L (15-37); BILIRUBIN,TOTAL 0.4 MG/DL (0.2-1.0); BLOOD UREA NITROGEN 15 mg/dL (7-18); CALCIUM 8.4 MG/DL (8.5-10.1); CARBON DIOXIDE 28 MMOL/L (21-32); CHLORIDE 105 MMOL/L (98-107); CREATININE 0.8 MG/DL (0.55-1.30); POTASSIUM 4.1 MMOL/L (3.5-5.1); SODIUM 138 MMOL/L (136-145)
--- NOTE | 2020-02-09 10:54 | Pulmonology Progress Note ---
Subjective ROS Limited/Unobtainable: No Interval Events: none new; pt reports feeling better Constitutional: Reports: no symptoms, fatigue; Denies: fever HEENT: Repors: no symptoms Respiratory: Reports: dry cough Cardiovascular: Denies: no symptoms, chest pain, palpitations, other Gastrointestinal/Abdominal: Denies: nausea, vomiting, diarrhea Psychiatric: Denies: depression Skin: Denies: rash Musculoskeletal: Denies: pain Allergies: Coded Allergies: No Known Allergies (Unverified , 02/05/20) Objective Last 24 Hour Vital Signs Date Time Temp Pulse Resp B/P (MAP) Pulse Ox O2 Delivery O2 Flow Rate FiO2 02/09/20 09:00 Room Air 02/09/20 08:55 96.9 02/09/20 08:00 96.9 99 20 142/68 (92) 96 02/09/20 08:00 46 02/09/20 04:00 49 02/09/20 04:00 97.2 60 20 146/75 (98) 97 02/09/20 00:00 98.1 61 19 135/83 (100) 95 02/09/20 00:00 54 02/08/20 23:38 98.6 02/08/20 21:00 Room Air 02/08/20 20:00 63 02/08/20 20:00 97.5 63 19 142/88 (106) 96 02/08/20 16:00 57 02/08/20 16:00 97.2 60 18 158/91 (113) 98 02/08/20 12:00 68 02/08/20 12:00 97.7 66 20 156/104 (121) 97 Intake and Output 02/08/20 02/09/20 19:00 07:00 Intake Total 1545 ml 1075 ml Output Total 1050 ml Balance 495 ml 1075 ml Intake Oral 720 ml 250 ml IV Total 825 ml 825 ml Output Urine Total 1050 ml # Voids 1 3 Objective 02/09/2020 off isolation; saturating well on RA 02/08/2020 feeling better; COVID-19 PCR neg 02/07/2020 reports feeling better; COVID-19 PCR pending 02/06/2020 pt laying in bed; reports feeling better General Appearance: WD/WN, no acute distress HEENT: normocephalic, atraumatic Respiratory: chest wall non-tender, lungs clear Cardiovascular: normal rate, regular rhythm Abdomen: soft, non tender, other - obese Microbiology Date/Time Source Procedure Growth Status 02/07/20 05:00 Blood Blood Culture - Preliminary Staphylococcus Aureus Resulted 02/07/20 04:40 Blood Blood Culture - Preliminary Staphylococcus Aureus Resulted Laboratory Tests 02/08/20 21:00: Vancomycin Level Trough 28.1H 02/09/20 07:20: White Blood Count 10.9H, Red Blood Count 5.33, Hemoglobin 15.4, Hematocrit 43.9, Mean Corpuscular Volume 82, Mean Corpuscular Hemoglobin 28.9, Mean Corpuscular Hemoglobin Concent 35.1, Red Cell Distribution Width 14.2, Platelet Count 274, Mean Platelet Volume 6.9, Neutrophils (%) (Auto) 60.9, Lymphocytes (%) (Auto) 31.3, Monocytes (%) (Auto) 6.4, Eosinophils (%) (Auto) 0.4, Basophils (%) (Auto) 1.0, Sodium Level 138, Potassium Level 4.1, Chloride Level 105, Carbon Dioxide Level 28, Anion Gap 5, Blood Urea Nitrogen 15, Creatinine 0.8, Estimat Glomerular Filtration Rate > 60, Glucose Level 85, Calcium Level 8.4L, Total Bilirubin 0.4, Aspartate Amino Transf (AST/SGOT) 32, Alanine Aminotransferase (ALT/SGPT) 81H, Alkaline Phosphatase 56, Total Protein 6.7, Albumin 3.3L, Globulin 3.4, Albumin/Globulin Ratio 1.0 Current Medications Medications (Trade) Dose Ordered Sig/Dennis Route PRN Reason Start Time Stop Time Status Last Admin Dose Admin Acetaminophen (Tylenol) 650 mg Q4H PRN ORAL Temp >100.5 02/05/20 13:15 03/06/20 13:14 02/08/20 23:08 Acetaminophen (Tylenol) 650 mg Q4H PRN ORAL Pain (1-3) 02/09/20 08:30 03/10/20 08:29 02/09/20 08:25 Bisacodyl (Dulcolax) 10 mg HSPRN PRN RECTAL Constipation 02/05/20 13:15 05/05/20 13:14 Cefazolin Sodium 50 ml @ 100 mls/hr Q8H IV 02/09/20 00:00 02/16/20 00:00 02/09/20 07:46 Dexamethasone Sodium Phosphate (Decadron 4mg/ml vial) 6 mg DAILY IVP 02/05/20 15:00 02/14/20 14:59 02/09/20 08:22 Dextrose (Dextrose 50%) 25 ml Q30M PRN IV Hypoglycemia 02/05/20 13:15 05/05/20 13:14 Dextrose (Dextrose 50%) 50 ml Q30M PRN IV Hypoglycemia 02/05/20 13:15 05/05/20 13:14 Dextrose/Sodium Chloride 1,000 ml @ 75 mls/hr [id number] IV 02/05/20 14:00 03/06/20 13:59 02/08/20 21:40 Docusate Sodium (Colace) 100 mg EVERY 12 HOURS ORAL 02/05/20 21:00 03/06/20 20:59 02/09/20 08:21 Doxycycline Hyclate 100 mg/ Dextrose 100 ml @ 100 mls/hr Q12HR IV 02/07/20 09:00 02/14/20 08:59 02/09/20 10:11 Enoxaparin Sodium (Lovenox) 40 mg DAILY SUBQ 02/05/20 15:00 05/05/20 14:59 02/09/20 08:23 Hydromorphone HCl (Dilaudid) 0.5 mg Q4H PRN IVP For Pain 02/05/20 13:15 02/12/20 13:14 02/06/20 16:50 Magnesium Hydroxide (Mom) 30 ml HSPRN PRN ORAL Constipation 02/05/20 13:15 03/06/20 13:14 Nitroglycerin (Ntg) 0.4 mg Q5M PRN SL Prn Chest Pain 02/05/20 06:15 03/06/20 06:14 02/05/20 06:26 Ondansetron HCl (Zofran) 4 mg Q6H PRN IVP Nausea & Vomiting 02/05/20 13:15 03/06/20 13:14 Pantoprazole (Protonix) 40 mg DAILY ORAL 02/06/20 09:00 03/07/20 08:59 02/09/20 08:21 Polyethylene Glycol (Miralax) 17 gm HSPRN PRN ORAL Constipation 02/05/20 13:15 03/06/20 13:14 Assessment/Plan Assessment/Plan 1. High suspicion for COVID-19 pneumonia however negative on pcr and antigen testing. - on Decadron - COVID-19 testing 02/05/2020 neg - repeat COVID-19 PCR neg - CTA 02/05/2020 ground-glass and consolidating infiltrates in the dependent portions of both lower lobes and to lesser degree the upper lobes consistent with bilateral pneumonia. No evidence of pulmonary embolus. - Continue dexamethasone, doxycycline per ID - Saturating well on RA - Mycoplasma pneumoniae IgG and M. pneumoniae IgM titer pending 2. Initial negative rapid COVID-19 gene assay. 3. Smoker. 4. DVT ppx - on lovenox 5. Hypertension 6. Blood culture positive for gram positive cocci staph aureus - on Abx - CT abd/pelvis result pending per ID - Consider FERNY; cardiology consult requested We will follow carefully. The care for this patient was discussed with my supervising physician. Time spent for this case was approximately 31 minutes. The patient was seen and examined at bedside and all new and available data was reviewed in the patients chart. I agree with the above findings, impression, and plan. (Patient was seen earlier today. Signature timestamp does not reflect patient encounter time) Edilson Peacock MD Feb 09, 2020 10:54 John Mata MD Feb 09, 2020 17:22
[2020-02-09 12:00] VITALS: BP 157/86
--- NOTE | 2020-02-09 12:24 | NUR ---
CASE MANAGEMENT:REVIEW 02/09/20 SI: BILATERAL PNA. BACTEREMIA 96.9 99 46 20 142/68 96% ON RA WBC+10.9 IS: IV ANCEF Q8HRS IV DOXYCYCLINE Q12 IV DECADRON LOVENOX SQ QD : TELEMETRY STATUS DCP; FROM HOME
[2020-02-09 16:00] VITALS: BP 144/80
--- NOTE | 2020-02-09 16:15 | Diagnostic Imaging Report ---
CT ABDOMEN AND PELVIS WITHOUT CONTRAST INDICATION: Abdominal pain TECHNIQUE: Continuous helical transaxial imaging of the abdomen and pelvis was obtained from the lung bases to the pubic symphysis without intravenous contrast administration. Coronal 2-D reformats were also obtained. Study obtained in a Siemens sensation [address] Automatic Exposure Control was utilized. Total Dose length Product (DLP): 1098.[address] Dose Index Volume (CTDIvol): 19.3 mGy COMPARISON: CTA chest dated 02/05/2020 FINDINGS: Lower chest:: Right middle lobe subsegmental atelectasis is again noted. Hepatobiliary:: Scattered low density lesions throughout the liver parenchyma, too small to accurately characterize on this examination. Genitourinary:: Mild prostatomegaly with coarse calcification. Urinary bladder is under distended, limiting evaluation. No hydronephrosis or nephrolithiasis. Exophytic right renal cyst is noted. Adrenals:: Nonspecific left adrenal gland nodular thickening. Pancreas:: Unremarkable. Gastrointestinal:: Appendix is normal. No evidence of obstruction. Scattered colonic diverticulosis without evidence of acute diverticulitis. Spleen: : Unremarkable. Peritoneum:: No free air or free fluid. No drainable fluid collection. Scattered enlarged portal and pancreatic lymph nodes. Bones and soft tissues::There are multilevel discogenic degenerative changes of the visualized spine. IMPRESSION: 1. Scattered hepatic hypodense lesions, too small to characterize on this examination without intravenous contrast. 2. Colonic diverticulosis without evidence of acute diverticulitis. 3. Scattered enlarged mesenteric lymph nodes, presumably reactive. The CT scanner at [facility] is accredited by the [employer] and the scans are performed using protocols designed to limit radiation exposure to as low as reasonably achievable to attain images of sufficient resolution adequate for diagnostic evaluation.
--- NOTE | 2020-02-09 19:37 | NUR ---
NURSE HAND-OFF REPORT: Important Events on Shift:[No remarkable events, continued IV antibiotics] Patient Status: [in bed stable ] Diet: [regular] Pending Orders: [] Pending Results/Labs:[] Pending MD notification:[] Latest Vital Signs: Temperature 97.9 , Pulse 63 , B/P 144 /80 , Respiratory Rate 20 , O2 SAT 95 , Room Air, O2 Flow Rate 2.0 . Vital Sign Comment: [] EKG Rhythm: Sinus Rhythm Rhythm change?: N MD Notified?: Courtney Awan MD Response: Message left await call Latest Hassan Fall Score: 20 Fall Risk: Low Risk Safety Measures: Call light Within Reach, Bed Alarm Zone 2, Side Rails Side Rails x2, Bed position Low and Locked. Fall Precautions: Yellow Socks Patient Fall Education Report given to [Kwame MATHEW].
--- NOTE | 2020-02-09 19:40 | NUR ---
NURSE NOTES: Got report from SHIRLEY RN. Pt resting in bed comfortably w/ no s/s of distress or discomfort noted. Pt is A+Ox4 ambulatory steady. Pt denies any pain or discomfort. Pt on room air sating 95%. site monitor showing NSR. Pt has R FA 22g saline locked intact, asymptomatic, and patent. Bed is in the lowest position and locked. Call light and bedside table is within reach. No signs/symptoms of chest pain or acute distress noted. Continue to monitor.
[2020-02-09 20:00] VITALS: BP 168/94
--- NOTE | 2020-02-09 20:57 | Cardiology Progress Note ---
Assessment/Plan Assessment/Plan hep c hs partially treated at [facility] hematuria hs in [place] past 1week hemaotochezina hs chest pain possible M/S infiltrate bilat bacteremin drug free for 28 years hsi of ivda chest pain ekg neg trop negh echo normal wall motion ct finding reprotedly [place] suggestive of covid 19 hs of hematuria and hemtochezia in fox past few day d/w dr fry and dr jimenez will repeat naophayngeal swab for covid as suspicous ct finding in anticipation of a venus will have echo lab look for avialbe time slots for venus or early next week Objective Last 24 Hour Vital Signs Date Time Temp Pulse Resp B/P (MAP) Pulse Ox O2 Delivery O2 Flow Rate FiO2 02/09/20 16:00 97.9 101 20 144/80 (101) 95 02/09/20 16:00 63 02/09/20 12:00 63 02/09/20 12:00 97.5 106 20 157/86 (109) 96 02/09/20 09:00 Room Air 02/09/20 08:55 96.9 02/09/20 08:00 96.9 99 20 142/68 (92) 96 02/09/20 08:00 46 02/09/20 04:00 49 02/09/20 04:00 97.2 60 20 146/75 (98) 97 02/09/20 00:00 98.1 61 19 135/83 (100) 95 02/09/20 00:00 54 02/08/20 23:38 98.6 02/08/20 21:00 Room Air Intake and Output 02/08/20 02/09/20 19:00 07:00 Intake Total 1545 ml 1075 ml Output Total 1050 ml Balance 495 ml 1075 ml Intake Oral 720 ml 250 ml IV Total 825 ml 825 ml Output Urine Total 1050 ml # Voids 1 3 Laboratory Tests Test 02/08/20 21:00 02/09/20 07:20 Vancomycin Level Trough 28.1 ug/mL (5.0-12.0) H White Blood Count 10.9 K/UL (4.8-10.8) H Red Blood Count 5.33 M/UL (4.70-6.10) Hemoglobin 15.4 G/DL (14.2-18.0) Hematocrit 43.9 % (42.0-52.0) Mean Corpuscular Volume 82 FL (80-99) Mean Corpuscular Hemoglobin 28.9 PG (27.0-31.0) Mean Corpuscular Hemoglobin Concent 35.1 G/DL (32.0-36.0) Red Cell Distribution Width 14.2 % (11.6-14.8) Platelet Count 274 K/UL (150-450) Mean Platelet Volume 6.9 FL (6.5-10.1) Neutrophils (%) (Auto) 60.9 % (45.0-75.0) Lymphocytes (%) (Auto) 31.3 % (20.0-45.0) Monocytes (%) (Auto) 6.4 % (1.0-10.0) Eosinophils (%) (Auto) 0.4 % (0.0-3.0) Basophils (%) (Auto) 1.0 % (0.0-2.0) Sodium Level 138 MMOL/L (136-145) Potassium Level 4.1 MMOL/L (3.5-5.1) Chloride Level 105 MMOL/L (98-107) Carbon Dioxide Level 28 MMOL/L (21-32) Anion Gap 5 mmol/L (5-15) Blood Urea Nitrogen 15 mg/dL (7-18) Creatinine 0.8 MG/DL (0.55-1.30) Estimat Glomerular Filtration Rate > 60 mL/min (>60) Glucose Level 85 MG/DL (74-106) Calcium Level 8.4 MG/DL (8.5-10.1) L Total Bilirubin 0.4 MG/DL (0.2-1.0) Aspartate Amino Transf (AST/SGOT) 32 U/L (15-37) Alanine Aminotransferase (ALT/SGPT) 81 U/L (12-78) H Alkaline Phosphatase 56 U/L (46-116) Total Protein 6.7 G/DL (6.4-8.2) Albumin 3.3 G/DL (3.4-5.0) L Globulin 3.4 g/dL Albumin/Globulin Ratio 1.0 (1.0-2.7) Microbiology Date/Time Source Procedure Growth Status 02/07/20 05:00 Blood Blood Culture - Preliminary Staphylococcus Aureus Resulted 02/07/20 04:40 Blood Blood Culture - Preliminary Staphylococcus Aureus Resulted Manan Awan MD Feb 09, 2020 20:57
[2020-02-10] VITALS: BP 150/80
[2020-02-10] MEDS: ceFAZolin 2gm/50ml Premix 50 ML IV SCH ×3 (00:43→16:51)
--- NOTE | 2020-02-10 01:50 | NUR ---
NURSE HAND-OFF REPORT: Important Events on Shift:[] Patient Status: [STABLE] Diet: [REGULAR] Pending Orders: [] Pending Results/Labs:[] Pending MD notification:[] Latest Vital Signs: Temperature 98.0 , Pulse 71 , B/P 150 /80 , Respiratory Rate 20 , O2 SAT 95 , Room Air, O2 Flow Rate 2.0 . Vital Sign Comment: [] EKG Rhythm: Sinus Rhythm Rhythm change?: N MD Notified?: Courtney Awan MD Response: Message left await call Latest Hassan Fall Score: 20 Fall Risk: Low Risk Safety Measures: Call light Within Reach, Bed Alarm Zone 2, Side Rails Side Rails x2, Bed position Low and Locked. Fall Precautions: Yellow Socks Patient Fall Education Report given to [LORENZA RN].
--- NOTE | 2020-02-10 02:00 | NUR ---
NURSE NOTES: Receive a report from PRIYANKA Puente. Pt is asleep without acute distress. Call light within reach. Will continue to monitor.
[2020-02-10 04:30] VITALS: BP 156/97
--- NOTE | 2020-02-10 05:00 | NUR ---
NURSE NOTES: Explain to pt for droplet isolation and retest for Covid-19 swab.
--- NOTE | 2020-02-10 06:30 | NUR ---
NURSE NOTES: Done Covid-19 swab done but pt was upset that he did not get informed in advance from ordering MD. Will endorse to contact to MD for pt's update. Afebrile. No respiratory distress noted. No noted change of taste. Will continue to monitor.
--- NOTE | 2020-02-10 07:10 | NUR ---
NURSE NOTES: Covid-19 test came out positive. Pt is on contact/droplet isolation. Update to pt.
--- NOTE | 2020-02-10 07:40 | NUR ---
NURSE HAND-OFF REPORT: Important Events on Shift: Covid-19 swab---> positive Patient Status: [stable] Diet: [regular] Pending Orders: [] Pending Results/Labs:[] Pending MD notification:[] Latest Vital Signs: Temperature 97.7 , Pulse 55 , B/P 156 /97 , Respiratory Rate 20 , O2 SAT 97 , Room Air, O2 Flow Rate 2.0 . Vital Sign Comment: [] EKG Rhythm: Sinus Bradycardia Rhythm change?: N MD Notified?: Courtney Awan MD Response: Message left await call Latest Hassan Fall Score: 20 Fall Risk: Low Risk Safety Measures: Call light Within Reach, Bed Alarm Zone 2, Side Rails Side Rails x2, Bed position Low and Locked. Fall Precautions: Yellow Socks Patient Fall Education Report given to PRIYANKA Crockett. Left a message to kitchen for pt's isolation condition.
--- NOTE | 2020-02-10 07:45 | NUR ---
NURSE NOTES: recvd pt report. Pt is AOx4, pt is on room air with no sign of sob or resp distress. Right FA IV locked c/d/i. Bed in lowest position, call light within reach, will continue with plan of care.
[2020-02-10 08:00] VITALS: BP 172/101
[2020-02-10] MEDS: Docusate 100mg cap ORAL SCH ×2 (08:58→21:20)
[2020-02-10] MEDS: Enoxaparin 40mg Inj SUBQ SCH (09:01)
[2020-02-10] MEDS: Hydromorphone 0.5mg/0.5ml inj IVP PRN (09:08)
[2020-02-10 12:00] VITALS: BP 153/91
--- NOTE | 2020-02-10 14:40 | NUR ---
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
--- NOTE | 2020-02-10 14:56 | NUR ---
[employer] REVIEWED AND FAXED.
[2020-02-10 16:00] VITALS: BP 161/93
--- NOTE | 2020-02-10 17:53 | Pulmonology Progress Note ---
Subjective ROS Limited/Unobtainable: No Interval Events: none new; pt reports feeling better Constitutional: Reports: no symptoms, fatigue; Denies: fever HEENT: Repors: no symptoms Respiratory: Reports: dry cough Cardiovascular: Denies: no symptoms, chest pain, palpitations, other Gastrointestinal/Abdominal: Denies: nausea, vomiting, diarrhea Psychiatric: Denies: depression Skin: Denies: rash Musculoskeletal: Denies: pain Allergies: Coded Allergies: No Known Allergies (Unverified , 02/05/20) Objective Last 24 Hour Vital Signs Date Time Temp Pulse Resp B/P (MAP) Pulse Ox O2 Delivery O2 Flow Rate FiO2 02/10/20 17:21 77 161/93 02/10/20 16:00 68 02/10/20 16:00 97.9 77 20 161/93 (115) 95 02/10/20 12:00 96.4 69 20 153/91 (111) 96 02/10/20 12:00 59 02/10/20 09:38 97.7 02/10/20 09:00 Room Air 02/10/20 08:59 73 185/122 02/10/20 08:00 96.7 73 20 172/101 (124) 96 02/10/20 08:00 63 02/10/20 04:30 97.7 55 20 156/97 (116) 97 02/10/20 03:52 53 02/10/20 00:00 98.0 54 20 150/80 (103) 95 02/10/20 00:00 71 02/09/20 23:09 97.9 02/09/20 21:00 Room Air 02/09/20 20:00 98.2 60 20 168/94 (118) 95 02/09/20 20:00 63 Intake and Output 02/09/20 02/10/20 19:00 07:00 Intake Total 1030 ml Output Total 1300 ml 400 ml Balance -270 ml -400 ml Intake Oral 1030 ml Output Urine Total 1300 ml 400 ml # Voids 2 General Appearance: WD/WN, no acute distress HEENT: normocephalic, atraumatic Respiratory: chest wall non-tender, lungs clear Cardiovascular: normal rate, regular rhythm Abdomen: soft, non tender, other - obese Microbiology Date/Time Source Procedure Growth Status 02/10/20 06:30 Nasopharynx SARS-CoV-2 RdRp Gene Assay - Final Complete Current Medications Medications (Trade) Dose Ordered Sig/Dennis Route PRN Reason Start Time Stop Time Status Last Admin Dose Admin Acetaminophen (Tylenol) 650 mg Q4H PRN ORAL Temp >100.5 02/05/20 13:15 03/06/20 13:14 02/09/20 22:37 Acetaminophen (Tylenol) 650 mg Q4H PRN ORAL Pain (1-3) 02/09/20 08:30 03/10/20 08:29 02/09/20 08:25 Amlodipine Besylate (Norvasc) 5 mg BID ORAL 02/10/20 09:00 03/11/20 08:59 02/10/20 17:21 Bisacodyl (Dulcolax) 10 mg HSPRN PRN RECTAL Constipation 02/05/20 13:15 05/05/20 13:14 Cefazolin Sodium 50 ml @ 100 mls/hr Q8H IV 02/09/20 00:00 02/16/20 00:00 02/10/20 16:51 Dexamethasone Sodium Phosphate (Decadron 4mg/ml vial) 6 mg DAILY IVP 02/05/20 15:00 02/14/20 14:59 02/10/20 08:59 Dextrose (Dextrose 50%) 25 ml Q30M PRN IV Hypoglycemia 02/05/20 13:15 05/05/20 13:14 Dextrose (Dextrose 50%) 50 ml Q30M PRN IV Hypoglycemia 02/05/20 13:15 05/05/20 13:14 Docusate Sodium (Colace) 100 mg EVERY 12 HOURS ORAL 02/05/20 21:00 03/06/20 20:59 02/10/20 08:58 Doxycycline Hyclate 100 mg/ Dextrose 100 ml @ 100 mls/hr Q12HR IV 02/07/20 09:00 02/14/20 08:59 02/10/20 10:46 Enoxaparin Sodium (Lovenox) 40 mg DAILY SUBQ 02/05/20 15:00 05/05/20 14:59 02/10/20 09:01 Hydralazine HCl (Apresoline) 25 mg Q6HR ORAL 02/10/20 18:00 05/10/20 17:59 Hydromorphone HCl (Dilaudid) 0.5 mg Q4H PRN IVP For Pain 02/05/20 13:15 02/12/20 13:14 02/10/20 09:08 Magnesium Hydroxide (Mom) 30 ml HSPRN PRN ORAL Constipation 02/05/20 13:15 03/06/20 13:14 Nitroglycerin (Ntg) 0.4 mg Q5M PRN SL Prn Chest Pain 02/05/20 06:15 03/06/20 06:14 02/05/20 06:26 Ondansetron HCl (Zofran) 4 mg Q6H PRN IVP Nausea & Vomiting 02/05/20 13:15 03/06/20 13:14 Pantoprazole (Protonix) 40 mg DAILY ORAL 02/06/20 09:00 03/07/20 08:59 02/10/20 08:59 Polyethylene Glycol (Miralax) 17 gm HSPRN PRN ORAL Constipation 02/05/20 13:15 03/06/20 13:14 Assessment/Plan Assessment/Plan 1. High suspicion for COVID-19 pneumonia however negative on pcr and antigen testing. - on Decadron - COVID-19 testing 02/05/2020 neg - repeat COVID-19 PCR neg - 3rd COVID test positive - CTA 02/05/2020 ground-glass and consolidating infiltrates in the dependent portions of both lower lobes and to lesser degree the upper lobes consistent with bilateral pneumonia. - Continue dexamethasone, doxycycline per ID - Saturating well on RA - Mycoplasma pneumoniae IgG and M. pneumoniae IgM titer pending 2. Confirmed positive COVID 19 3. Smoker. 4. DVT ppx - on lovenox 5. Hypertension 6. Blood culture positive for gram positive cocci staph aureus - on Abx - CT abd/pelvis result pending per ID - Consider FERNY; cardiology consult requested We will follow carefully. The care for this patient was discussed with my supervising physician. Time spent for this case was approximately 31 minutes. The patient was seen and examined at bedside and all new and available data was reviewed in the patients chart. I agree with the above findings, impression, and plan. (Patient was seen earlier today. Signature timestamp does not reflect patient encounter time) John Ramirez MD, MD Feb 10, 2020 17:53
[2020-02-10] MEDS: HydrALAZINE 25mg tab ORAL SCH (18:13)
--- NOTE | 2020-02-10 19:20 | Cardiology Progress Note ---
Assessment/Plan Assessment/Plan Acute covid 19 pneumonia chest pain possible M/S infiltrate bilat bacteremia drug free for 28 years hsi of ivda chest pain ekg neg trop neg echo normal wall motion ct finding reportedly highly suggestive of covid 19 hs of hematuria and hemtochezia in fox past few day 2 neg test for covid now 3rd test positive for covid will cancel venus plans for the next 20 days Subjective ROS Limited/Unobtainable: Yes Subjective pt now in covid 19 isolation Objective Last 24 Hour Vital Signs Date Time Temp Pulse Resp B/P (MAP) Pulse Ox O2 Delivery O2 Flow Rate FiO2 02/10/20 18:13 161/93 02/10/20 17:21 77 161/93 02/10/20 16:00 68 02/10/20 16:00 97.9 77 20 161/93 (115) 95 02/10/20 12:00 96.4 69 20 153/91 (111) 96 02/10/20 12:00 59 02/10/20 09:38 97.7 02/10/20 09:00 Room Air 02/10/20 08:59 73 185/122 02/10/20 08:00 96.7 73 20 172/101 (124) 96 02/10/20 08:00 63 02/10/20 04:30 97.7 55 20 156/97 (116) 97 02/10/20 03:52 53 02/10/20 00:00 98.0 54 20 150/80 (103) 95 02/10/20 00:00 71 02/09/20 23:09 97.9 02/09/20 21:00 Room Air 02/09/20 20:00 98.2 60 20 168/94 (118) 95 02/09/20 20:00 63 Intake and Output 02/09/20 02/10/20 19:00 07:00 Intake Total 1030 ml Output Total 1300 ml 400 ml Balance -270 ml -400 ml Intake Oral 1030 ml Output Urine Total 1300 ml 400 ml # Voids 2 Microbiology Date/Time Source Procedure Growth Status 02/10/20 06:30 Nasopharynx SARS-CoV-2 RdRp Gene Assay - Final Complete Objective pt in covid 19 isoaltion with infection per pulm note General Appearance: WD/WN, no acute distress HEENT: normocephalic, atraumatic Respiratory: chest wall non-tender, lungs clear Cardiovascular: normal rate, regular rhythm Abdomen: soft, non tender, other - obese Manan Awan MD Feb 10, 2020 19:19
--- NOTE | 2020-02-10 19:20 | NUR ---
NURSE NOTES: Got report from Keira MATHEW. Pt resting in bed comfortably w/ no s/s of distress or discomfort noted. Pt is A+Ox4 ambulatory steady. Pt denies any pain or discomfort. Pt on room air sating 94%. 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 Pt has R FA 22g saline locked intact, asymptomatic, and patent. Bed is in the lowest position and locked. Call light and bedside table is within reach. No signs/symptoms of chest pain or acute distress noted. Pt educated on calling before getting up and keeping door closed do to isolation. Continue to monitor.
[2020-02-10 20:00] VITALS: BP_SYST 156; BP_SYST 158; BP_DIAS 67; BP_DIAS 91
--- NOTE | 2020-02-10 20:00 | NUR ---
NURSE NOTES: Called Dr. Christensen and left a voice mail requesting couch medication per pt request. Awaiting call back. Will continue to monitor.
[2020-02-11] VITALS: BP 156/91
[2020-02-11] MEDS: ceFAZolin 2gm/50ml Premix 50 ML IV SCH ×3 (00:17→15:34)
[2020-02-11] MEDS: HydrALAZINE 25mg tab ORAL SCH ×4 (00:17→17:55)
--- NOTE | 2020-02-11 00:28 | Infectious Diseases Prog Note ---
Assessment/Plan Assessment/Plan ASSESSMENT AND PLAN: 1. staph aureus bacteremia/mssa, ? source, ? endocarditis, sepsis, leukocytosis, ? CAP, ? septic emboli, covid-19 + on 3rd test, less likely CAP with + covid-19 test, mycoplasma igm negative - continue cefazolin, discontinue doxycycline - dexamethasone for covid-19 pna - CT abdomen and pelvis without abscess - f/u on TTE, FERNY held secondary to + covid-19 test - monitor labs and surveillance blood cultures - consider wbc scan if TTE/FERNY negative for bacteremia source identification 2. covid-19 testing negative x 2 - consider remove isolation 3. Hypertension history. Blood pressure treatment primary care team. 4. Elevated blood sugars. Blood sugar treatment per primary care team. 5. No known drug allergies. 6. Social history is positive for smoking. 7. Family history is noncontributory. 8. MAR was noted. 9. Case was discussed with RN. 10. Continue treatment per primary consultants. Subjective Constitutional: Reports: fatigue; Denies: fever HEENT: Denies: congestion Respiratory: Denies: shortness of breath Cardiovascular: Denies: chest pain Gastrointestinal/Abdominal: Denies: nausea, diarrhea Genitourinary: Reports: other - no joseph Neurologic: Denies: headache Psychiatric: Denies: depression Skin: Denies: rash Hematologic: Denies: bleeding Musculoskeletal: Denies: pain Allergies: Coded Allergies: No Known Allergies (Unverified , 02/05/20) Objective Last 24 Hour Vital Signs Date Time Temp Pulse Resp B/P (MAP) Pulse Ox O2 Delivery O2 Flow Rate FiO2 02/10/20 18:13 161/93 02/10/20 17:21 77 161/93 02/10/20 16:00 68 02/10/20 16:00 97.9 77 20 161/93 (115) 95 02/10/20 12:00 96.4 69 20 153/91 (111) 96 02/10/20 12:00 59 02/10/20 09:38 97.7 02/10/20 09:00 Room Air 02/10/20 08:59 73 185/122 02/10/20 08:00 96.7 73 20 172/101 (124) 96 02/10/20 08:00 63 02/10/20 04:30 97.7 55 20 156/97 (116) 97 02/10/20 03:52 53 Height (Feet): 5 Height (Inches): 10.00 Weight (Pounds): 240 General Appearance: no acute distress HEENT: normocephalic, atraumatic, anicteric Respiratory/Chest: lungs clear, normal breath sounds, no respiratory distress, no accessory muscle use Cardiovascular: normal rate, regular rhythm Abdomen: normal bowel sounds, soft, non tender, no organomegaly, non distended Genitourinary: other - no joseph Extremities: no cyanosis Skin: no rash 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 The infiltrates are typical for Covid 19. No evidence of pulmonary embolus. CT abdomen and pelvis: IMPRESSION: 1. Scattered hepatic hypodense lesions, too small to characterize on this examination without intravenous contrast. 2. Colonic diverticulosis without evidence of acute diverticulitis. 3. Scattered enlarged mesenteric lymph nodes, presumably reactive. teral pneumonia. The infiltrates are typical for Covid 19. No evidence of pulmonary embolus. Microbiology Date/Time Source Procedure Growth Status 02/10/20 06:30 Nasopharynx SARS-CoV-2 RdRp Gene Assay - Final Complete 02/07/20 05:00 Blood Blood Culture - Final Staphylococcus Aureus Complete Microbiology Date/Time Source Procedure Growth Status 02/10/20 06:30 Nasopharynx SARS-CoV-2 RdRp Gene Assay - Final Complete Labs Test 02/08/20 05:50 02/08/20 21:00 02/09/20 07:20 White Blood Count 9.3 K/UL (4.8-10.8) 10.9 K/UL (4.8-10.8) Red Blood Count 4.72 M/UL (4.70-6.10) 5.33 M/UL (4.70-6.10) Hemoglobin 13.7 G/DL (14.2-18.0) 15.4 G/DL (14.2-18.0) Hematocrit 39.9 % (42.0-52.0) 43.9 % (42.0-52.0) Mean Corpuscular Volume 85 FL (80-99) 82 FL (80-99) Mean Corpuscular Hemoglobin 29.0 PG (27.0-31.0) 28.9 PG (27.0-31.0) Mean Corpuscular Hemoglobin Concent 34.3 G/DL (32.0-36.0) 35.1 G/DL (32.0-36.0) Red Cell Distribution Width 13.4 % (11.6-14.8) 14.2 % (11.6-14.8) Platelet Count 242 K/UL (150-450) 274 K/UL (150-450) Mean Platelet Volume 7.8 FL (6.5-10.1) 6.9 FL (6.5-10.1) Neutrophils (%) (Auto) 68.9 % (45.0-75.0) 60.9 % (45.0-75.0) Lymphocytes (%) (Auto) 24.2 % (20.0-45.0) 31.3 % (20.0-45.0) Monocytes (%) (Auto) 5.9 % (1.0-10.0) 6.4 % (1.0-10.0) Eosinophils (%) (Auto) 0.3 % (0.0-3.0) 0.4 % (0.0-3.0) Basophils (%) (Auto) 0.7 % (0.0-2.0) 1.0 % (0.0-2.0) Sodium Level 139 MMOL/L (136-145) 138 MMOL/L (136-145) Potassium Level 4.0 MMOL/L (3.5-5.1) 4.1 MMOL/L (3.5-5.1) Chloride Level 108 MMOL/L (98-107) 105 MMOL/L (98-107) Carbon Dioxide Level 25 MMOL/L (21-32) 28 MMOL/L (21-32) Anion Gap 6 mmol/L (5-15) 5 mmol/L (5-15) Blood Urea Nitrogen 13 mg/dL (7-18) 15 mg/dL (7-18) Creatinine 0.8 MG/DL (0.55-1.30) 0.8 MG/DL (0.55-1.30) Estimat Glomerular Filtration Rate > 60 mL/min (>60) > 60 mL/min (>60) Glucose Level 109 MG/DL (74-106) 85 MG/DL (74-106) Calcium Level 7.7 MG/DL (8.5-10.1) 8.4 MG/DL (8.5-10.1) Total Bilirubin 0.4 MG/DL (0.2-1.0) 0.4 MG/DL (0.2-1.0) Aspartate Amino Transf (AST/SGOT) 18 U/L (15-37) 32 U/L (15-37) Alanine Aminotransferase (ALT/SGPT) 40 U/L (12-78) 81 U/L (12-78) Alkaline Phosphatase 51 U/L (46-116) 56 U/L (46-116) Total Protein 6.0 G/DL (6.4-8.2) 6.7 G/DL (6.4-8.2) Albumin 2.9 G/DL (3.4-5.0) 3.3 G/DL (3.4-5.0) Globulin 3.1 g/dL 3.4 g/dL Albumin/Globulin Ratio 0.9 (1.0-2.7) 1.0 (1.0-2.7) Vancomycin Level Trough 28.1 ug/mL (5.0-12.0) Current Medications Medications (Trade) Dose Ordered Sig/Dennis Route PRN Reason Start Time Stop Time Status Last Admin Dose Admin Acetaminophen (Tylenol) 650 mg Q4H PRN ORAL Temp >100.5 02/05/20 13:15 03/06/20 13:14 02/09/20 22:37 Acetaminophen (Tylenol) 650 mg Q4H PRN ORAL Pain (1-3) 02/09/20 08:30 03/10/20 08:29 02/09/20 08:25 Amlodipine Besylate (Norvasc) 5 mg BID ORAL 02/10/20 09:00 03/11/20 08:59 02/10/20 17:21 Bisacodyl (Dulcolax) 10 mg HSPRN PRN RECTAL Constipation 02/05/20 13:15 05/05/20 13:14 Cefazolin Sodium 50 ml @ 100 mls/hr Q8H IV 12/9/20 00:00 02/16/20 00:00 02/10/20 16:51 Dexamethasone Sodium Phosphate (Decadron 4mg/ml vial) 6 mg DAILY IVP 02/05/20 15:00 02/14/20 14:59 02/10/20 08:59 Dextrose (Dextrose 50%) 25 ml Q30M PRN IV Hypoglycemia 02/05/20 13:15 05/05/20 13:14 Dextrose (Dextrose 50%) 50 ml Q30M PRN IV Hypoglycemia 02/05/20 13:15 05/05/20 13:14 Docusate Sodium (Colace) 100 mg EVERY 12 HOURS ORAL 02/05/20 21:00 03/06/20 20:59 02/10/20 21:20 Doxycycline Hyclate 100 mg/ Dextrose 100 ml @ 100 mls/hr Q12HR IV 02/07/20 09:00 02/14/20 08:59 02/10/20 21:20 Enoxaparin Sodium (Lovenox) 40 mg DAILY SUBQ 02/05/20 15:00 05/05/20 14:59 02/10/20 09:01 Hydralazine HCl (Apresoline) 25 mg Q6HR ORAL 02/10/20 18:00 05/10/20 17:59 02/10/20 18:13 Hydromorphone HCl (Dilaudid) 0.5 mg Q4H PRN IVP For Pain 02/05/20 13:15 02/12/20 13:14 02/10/20 09:08 Magnesium Hydroxide (Mom) 30 ml HSPRN PRN ORAL Constipation 02/05/20 13:15 03/06/20 13:14 Nitroglycerin (Ntg) 0.4 mg Q5M PRN SL Prn Chest Pain 02/05/20 06:15 03/06/20 06:14 02/05/20 06:26 Ondansetron HCl (Zofran) 4 mg Q6H PRN IVP Nausea & Vomiting 02/05/20 13:15 03/06/20 13:14 Pantoprazole (Protonix) 40 mg DAILY ORAL 02/06/20 09:00 03/07/20 08:59 02/10/20 08:59 Polyethylene Glycol (Miralax) 17 gm HSPRN PRN ORAL Constipation 02/05/20 13:15 03/06/20 13:14 Kisha Salazar MD Feb 11, 2020 00:28
[2020-02-11 04:00] VITALS: BP 158/98
--- NOTE | 2020-02-11 07:19 | NUR ---
NURSE HAND-OFF REPORT: Important Events on Shift: 2D echo today Patient Status: No acute distress Diet: regular Pending Orders: Pending Results/Labs: Pending MD notification: Latest Vital Signs: Temperature 97.1 , Pulse 61 , B/P 158 /98 , Respiratory Rate 20 , O2 SAT 94 , Room Air, O2 Flow Rate 2.0 . Vital Sign Comment: EKG Rhythm: Sinus Rhythm Rhythm change?: N MD Notified?: Courtney Awan MD Response: Message left await call Latest Hassan Fall Score: 20 Fall Risk: Low Risk Safety Measures: Call light Within Reach, Bed Alarm Zone 2, Side Rails Side Rails x2, Bed position Low and Locked. Fall Precautions: Yellow Socks Patient Fall Education Report given to Franchesca MATHEW .
--- NOTE | 2020-02-11 07:30 | NUR ---
NURSE NOTES: Received pt from Mónica MATHEW. Pt standing near bed, steady gait noted. Bed low and locked, call light resting in bed. Pt makes no complaint of SOB, no distress noted.
--- NOTE | 2020-02-11 07:39 | NUR ---
RD ASSESSMENT & RECOMMENDATIONS SEE CARE ACTIVITY FOR COMPLETE ASSESSMENT DAILY ESTIMATED NEEDS: Needs based on Pulmonary, cardiac 87kg abw 23-28 kcals/kg 4035-8199 total kcals 1-1.5 g protein/kg 87-131 g total protein 25-30 mL/kg 9887-9261 total fluid mLs NUTRITION DIAGNOSIS: Decreased sodium and fat needs r/t HTN and obesity as evidenced by pt w/ cardiac history, elev BP (159/98), BMI 38.6, obese per guidelines. (CURRENT DIET: Regular) PO DIET RECOMMENDATIONS--->>> CARDIAC DIET (Low fat/ Low Na) ADDITIONAL RECOMMENDATIONS: 1) Maintain calibrated bedscale wts; obtain a standing wt as able 2) HgA1C for eval 3) Added proteins portions to trays
[2020-02-11 08:00] VITALS: BP 159/96
[2020-02-11] MEDS: Docusate 100mg cap ORAL SCH ×2 (09:20→21:08)
[2020-02-11] MEDS: Enoxaparin 40mg Inj SUBQ SCH (09:21)
[2020-02-11] MEDS ORDERED: NS 275ml ONE (10:01)
[2020-02-11] MEDS ORDERED: Tubing IV Secondary IV ONE (10:01)
--- NOTE | 2020-02-11 10:56 | NUR ---
CASE MANAGEMENT:REVIEW 02/11/20 SI: COVID PNEUMONIA. BACTEREMIA 97.5 94 18 159/96 98% ON RA IS: IV ANCEF Q8HRS IV DECADRON QD HYDRALAZINE PO Q6HRS NORVASC PO BID PROTONIX PO QD LOVENOX SQ QD : TELEMETRY STATUS DCP: FROM HOME
[2020-02-11 12:00] VITALS: BP 167/68
--- NOTE | 2020-02-11 15:51 | Pulmonology Progress Note ---
Subjective ROS Limited/Unobtainable: Yes Interval Events: none new; pt reports feeling better Constitutional: Reports: fatigue; Denies: fever HEENT: Repors: no symptoms Respiratory: Reports: dry cough Cardiovascular: Denies: no symptoms, chest pain, palpitations, other Gastrointestinal/Abdominal: Denies: nausea, diarrhea Psychiatric: Denies: depression Skin: Denies: rash Musculoskeletal: Denies: pain Allergies: Coded Allergies: No Known Allergies (Unverified , 02/05/20) Objective Last 24 Hour Vital Signs Date Time Temp Pulse Resp B/P (MAP) Pulse Ox O2 Delivery O2 Flow Rate FiO2 02/11/20 12:34 167/68 02/11/20 12:00 96.1 78 19 167/68 (101) 96 02/11/20 12:00 57 02/11/20 09:21 94 159/96 02/11/20 09:00 Room Air 02/11/20 08:00 97.5 94 18 159/96 (117) 98 02/11/20 08:00 72 02/11/20 05:53 158/98 02/11/20 04:00 61 02/11/20 04:00 97.1 61 20 158/98 (118) 94 02/11/20 00:17 156/91 02/11/20 00:00 97.5 71 20 156/91 (112) 94 02/11/20 00:00 61 02/10/20 21:00 Room Air 02/10/20 20:00 77 02/10/20 20:00 97.5 71 20 158/67 (97) 94 02/10/20 18:13 161/93 02/10/20 17:21 77 161/93 02/10/20 16:00 68 02/10/20 16:00 97.9 77 20 161/93 (115) 95 Intake and Output 02/10/20 02/11/20 19:00 07:00 Intake Total 1230 ml 240 ml Output Total 1200 ml 700 ml Balance 30 ml -460 ml Intake Oral 1230 ml 240 ml Output Urine Total 1200 ml 700 ml Objective 02/11/2020 back on isolation due to COVID-19 positive status again; currently being worked up for positive blood culture 02/09/2020 off isolation; saturating well on RA 02/08/2020 feeling better; COVID-19 PCR neg 02/07/2020 reports feeling better; COVID-19 PCR pending 02/06/2020 pt laying in bed; reports feeling better General Appearance: WD/WN, no acute distress HEENT: normocephalic, atraumatic Respiratory: chest wall non-tender, lungs clear Cardiovascular: normal rate, regular rhythm Abdomen: soft, non tender, other - obese Microbiology Date/Time Source Procedure Growth Status 02/10/20 06:30 Nasopharynx SARS-CoV-2 RdRp Gene Assay - Final Complete 02/09/20 07:20 Blood Blood Culture - Preliminary NO GROWTH AFTER 24 HOURS Resulted 02/09/20 07:10 Blood Blood Culture - Preliminary NO GROWTH AFTER 24 HOURS Resulted Current Medications Medications (Trade) Dose Ordered Sig/Dennis Route PRN Reason Start Time Stop Time Status Last Admin Dose Admin Acetaminophen (Tylenol) 650 mg Q4H PRN ORAL Temp >100.5 02/05/20 13:15 03/06/20 13:14 02/09/20 22:37 Acetaminophen (Tylenol) 650 mg Q4H PRN ORAL Pain (1-3) 02/09/20 08:30 03/10/20 08:29 02/09/20 08:25 Amlodipine Besylate (Norvasc) 5 mg BID ORAL 02/10/20 09:00 03/11/20 08:59 02/11/20 09:21 Bisacodyl (Dulcolax) 10 mg HSPRN PRN RECTAL Constipation 02/05/20 13:15 05/05/20 13:14 Cefazolin Sodium 50 ml @ 100 mls/hr Q8H IV 02/09/20 00:00 02/16/20 00:00 02/11/20 15:34 Dexamethasone Sodium Phosphate (Decadron 4mg/ml vial) 6 mg DAILY IVP 02/05/20 15:00 02/14/20 14:59 02/11/20 09:20 Dextrose (Dextrose 50%) 25 ml Q30M PRN IV Hypoglycemia 02/05/20 13:15 05/05/20 13:14 Dextrose (Dextrose 50%) 50 ml Q30M PRN IV Hypoglycemia 02/05/20 13:15 05/05/20 13:14 Docusate Sodium (Colace) 100 mg EVERY 12 HOURS ORAL 02/05/20 21:00 03/06/20 20:59 02/11/20 09:20 Enoxaparin Sodium (Lovenox) 40 mg DAILY SUBQ 02/05/20 15:00 05/05/20 14:59 02/11/20 09:21 Hydralazine HCl (Apresoline) 25 mg Q6HR ORAL 02/10/20 18:00 05/10/20 17:59 02/11/20 12:34 Hydromorphone HCl (Dilaudid) 0.5 mg Q4H PRN IVP For Pain 02/11/20 08:42 02/18/20 08:41 Magnesium Hydroxide (Mom) 30 ml HSPRN PRN ORAL Constipation 02/05/20 13:15 03/06/20 13:14 Nitroglycerin (Ntg) 0.4 mg Q5M PRN SL Prn Chest Pain 02/05/20 06:15 03/06/20 06:14 02/05/20 06:26 Ondansetron HCl (Zofran) 4 mg Q6H PRN IVP Nausea & Vomiting 02/05/20 13:15 03/06/20 13:14 Pantoprazole (Protonix) 40 mg DAILY ORAL 02/06/20 09:00 03/07/20 08:59 02/11/20 09:21 Polyethylene Glycol (Miralax) 17 gm HSPRN PRN ORAL Constipation 02/05/20 13:15 03/06/20 13:14 Assessment/Plan Assessment/Plan 1. High suspicion for COVID-19 pneumonia. - on Decadron - COVID-19 testing 02/05/2020 neg - repeat COVID-19 PCR positive - CTA 02/05/2020 ground-glass and consolidating infiltrates in the dependent portions of both lower lobes and to lesser degree the upper lobes consistent with bilateral pneumonia. No evidence of pulmonary embolus. - Continue dexamethasone, doxycycline per ID - Well saturated on RA - Mycoplasma pneumoniae IgG and M. pneumoniae IgM titer pending 2. Initial negative rapid COVID-19 gene assay. 3. Smoker. 4. DVT ppx - on lovenox 5. Hypertension - on hydralazine, and norvasc - Switched to cardiac diet 6. Blood culture positive for gram positive cocci staph aureus - on Abx - CT abd/pelvis showed no abscess per ID - F/u TTE per ID - FERNY held off due to COVID-19 status We will follow carefully. The care for this patient was discussed with my supervising physician. Time spent for this case was approximately 31 minutes. Edilson Marinelli Feb 11, 2020 15:51
[2020-02-11 16:00] VITALS: BP 158/68
--- NOTE | 2020-02-11 18:38 | Cardiology Progress Note ---
Assessment/Plan Assessment/Plan Acute covid 19 pneumonia chest pain possible M/S infiltrate bilat bacteremia drug free for 28 years hsi of ivda chest pain ekg neg trop neg echo normal wall motion ct finding reportedly highly suggestive of covid 19 hs of hematuria and hemtochezia in fox past few day 2 neg test for covid now 3rd test positive for covid teee cancelled at this time one option would be to consider venus after 2-3 weeks of abx to deteremin if longer period of ivabx maybe needed as out pt Subjective Cardiovascular: Denies: chest pain, irregular heart rate, lightheadedness Respiratory: Reports: cough - min ; Denies: shortness of breath Gastrointestinal/Abdominal: Denies: abdominal pain, diarrhea Genitourinary: Denies: burning Subjective pt now in covid 19 isolation , walkiin in his room and up in th elizabeth adama took al shower Objective Last 24 Hour Vital Signs Date Time Temp Pulse Resp B/P (MAP) Pulse Ox O2 Delivery O2 Flow Rate FiO2 02/11/20 17:56 72 162/90 02/11/20 17:55 162/90 02/11/20 16:00 97.2 68 19 158/68 (98) 96 02/11/20 16:00 75 02/11/20 12:34 167/68 02/11/20 12:00 96.1 78 19 167/68 (101) 96 02/11/20 12:00 57 02/11/20 09:21 94 159/96 02/11/20 09:00 Room Air 02/11/20 08:00 97.5 94 18 159/96 (117) 98 02/11/20 08:00 72 02/11/20 05:53 158/98 02/11/20 04:00 61 02/11/20 04:00 97.1 61 20 158/98 (118) 94 02/11/20 00:17 156/91 02/11/20 00:00 97.5 71 20 156/91 (112) 94 02/11/20 00:00 61 02/10/20 21:00 Room Air 02/10/20 20:00 77 02/10/20 20:00 97.5 71 20 158/67 (97) 94 General Appearance: no apparent distress, patient on isolation - taleked with ot iver tphone Intake and Output 02/10/20 02/11/20 19:00 07:00 Intake Total 1230 ml 240 ml Output Total 1200 ml 700 ml Balance 30 ml -460 ml Intake Oral 1230 ml 240 ml Output Urine Total 1200 ml 700 ml Microbiology Date/Time Source Procedure Growth Status 02/10/20 06:30 Nasopharynx SARS-CoV-2 RdRp Gene Assay - Final Complete 02/09/20 07:20 Blood Blood Culture - Preliminary NO GROWTH AFTER 24 HOURS Resulted 02/09/20 07:10 Blood Blood Culture - Preliminary NO GROWTH AFTER 24 HOURS Resulted Objective pt in covid 19 isoaltion with acute infection per pulm note General Appearance: WD/WN, no acute distress HEENT: normocephalic, atraumatic Respiratory: chest wall non-tender, lungs clear Cardiovascular: normal rate, regular rhythm Abdomen: soft, non tender, other - obese Manan Awan MD Feb 11, 2020 18:38
--- NOTE | 2020-02-11 18:42 | NUR ---
NURSE HAND-OFF REPORT: Important Events on Shift:[No remarkable events. PT continues to be slightly hypertensive. mediation given. ] Patient Status: [in room watching tv [place]bale] Diet: [cardiac] Pending Orders: [] Pending Results/Labs:[] Pending MD notification:[] Latest Vital Signs: Temperature 97.2 , Pulse 72 , B/P 162 /90 , Respiratory Rate 19 , O2 SAT 96 , Room Air, O2 Flow Rate 2.0 . Vital Sign Comment: [] EKG Rhythm: Sinus Rhythm Rhythm change?: N Notified?: Y Bang Awan MD Response: Message left await call Latest Hassan Fall Score: 20 Fall Risk: Low Risk Safety Measures: Call light Within Reach, Bed Alarm Zone 2, Side Rails Side Rails x2, Bed position Low and Locked. Fall Precautions: Yellow Socks Patient Fall Education Report given to [Pending Rn Assignment]. Addendum: 02/11/20 at 1940 by Franchesca Laws RN Report given to Cleo MATHEW
--- NOTE | 2020-02-11 19:30 | NUR ---
NURSE NOTES: Report received from Ani RN. Patient is awake alert and oriented x4. No SOB or distress noted. Call light and bed side table with in reach. patient is sitting up in chair next to bed. Bed at lowest position locked with side rails up. Will continue with plan of care.
[2020-02-11 20:00] VITALS: BP 150/62
[2020-02-11] MEDS: Hydromorphone 0.5mg/0.5ml inj IVP PRN (21:08)
[2020-02-12] VITALS: BP 136/62
[2020-02-12] MEDS: ceFAZolin 2gm/50ml Premix 50 ML IV SCH ×4 (00:24→23:52)
[2020-02-12] MEDS: HydrALAZINE 25mg tab ORAL SCH ×5 (00:32→23:52)
[2020-02-12 04:00] VITALS: BP 130/70
[2020-02-12] MEDS: Hydromorphone 0.5mg/0.5ml inj IVP PRN ×2 (05:56→18:07)
[2020-02-12 07:00] LABS: BASOPHILS % (AUTO) 1.1 % (0.0-2.0); EOSINOPHILS % (AUTO) 0.8 % (0.0-3.0); HEMOGLOBIN 16.8 G/DL (14.2-18.0); LYMPHOCYTES % (AUTO) 14.8 % (20.0-45.0); MEAN CORPUSCULAR VOLUME 85 FL (80-99); MONOCYTES % (AUTO) 5.7 % (1.0-10.0); NEUTROPHILS % (AUTO) 77.7 % (45.0-75.0); PLATELET COUNT 325 K/UL (150-450); RED BLOOD COUNT 5.92 M/UL (4.70-6.10); RED CELL DISTRIBUTION WIDTH 13.8 % (11.6-14.8); WHITE BLOOD COUNT 10.8 K/UL (4.8-10.8)
--- NOTE | 2020-02-12 07:06 | NUR ---
HAND-OFF: Report given to Ani RN. Patient stable awake alert oriented x4. Pain medication effective at this time. Endorsed plan of care.
--- NOTE | 2020-02-12 07:10 | NUR ---
NURSE NOTES: Pt received from Cleo MATHEW. Pt in bed alert and stable. Bed low and locked, call light within reach. no complaint of SOB or angina at this time.
[2020-02-12 07:29] LABS: ALANINE AMINOTRANSFERASE 93 U/L (12-78); ALBUMIN 3.8 G/DL (3.4-5.0); ALBUMIN/GLOBULIN RATIO 0.9 (1.0-2.7); ALKALINE PHOSPHATASE 83 U/L (46-116); ANION GAP 7 mmol/L (5-15); ASPARTATE AMINO TRANSFERASE 33 U/L (15-37); BILIRUBIN,TOTAL 0.4 MG/DL (0.2-1.0); BLOOD UREA NITROGEN 20 mg/dL (7-18); CALCIUM 8.7 MG/DL (8.5-10.1); CARBON DIOXIDE 30 MMOL/L (21-32); CHLORIDE 101 MMOL/L (98-107); CREATININE 0.9 MG/DL (0.55-1.30); SODIUM 138 MMOL/L (136-145)
[2020-02-12 08:00] VITALS: BP 155/85
[2020-02-12] MEDS: Docusate 100mg cap ORAL SCH (08:31)
[2020-02-12] MEDS: Enoxaparin 40mg Inj SUBQ SCH (08:32)
[2020-02-12 12:00] VITALS: BP 161/97
--- NOTE | 2020-02-12 14:32 | Pulmonology Progress Note ---
Subjective ROS Limited/Unobtainable: Yes Constitutional: Reports: fatigue HEENT: Repors: no symptoms Respiratory: Reports: dry cough Cardiovascular: Denies: no symptoms, chest pain, palpitations, other Gastrointestinal/Abdominal: Denies: nausea, diarrhea Psychiatric: Denies: depression Skin: Denies: rash Musculoskeletal: Denies: pain Allergies: Coded Allergies: No Known Allergies (Unverified , 02/05/20) Subjective pt requesting to be off laxatives saying he can have bowel movements without any problem Objective Last 24 Hour Vital Signs Date Time Temp Pulse Resp B/P (MAP) Pulse Ox O2 Delivery O2 Flow Rate FiO2 02/12/20 12:08 161/97 02/12/20 12:00 97.9 65 18 161/97 (118) 95 02/12/20 12:00 70 02/12/20 09:00 Room Air Room Air 02/12/20 08:57 72 155/85 02/12/20 08:00 97.7 72 18 155/85 (108) 96 02/12/20 08:00 72 02/12/20 05:53 139/75 02/12/20 04:00 97.5 65 17 130/70 (90) 98 02/12/20 04:00 61 02/12/20 00:32 136/80 02/12/20 00:00 97.6 65 18 136/62 (86) 97 02/12/20 00:00 64 02/11/20 21:00 Room Air 02/11/20 20:00 97.7 72 18 150/62 (91) 96 02/11/20 20:00 71 02/11/20 17:56 72 162/90 02/11/20 17:55 162/90 02/11/20 16:00 97.2 68 19 158/68 (98) 96 02/11/20 16:00 75 Intake and Output 02/11/20 02/12/20 19:00 07:00 Intake Total 720 ml 200 ml Output Total 600 ml Balance 120 ml 200 ml Intake Oral 720 ml 200 ml Output Urine Total 600 ml # Voids 3 Objective 02/12/2020 sitting up in a chair; saturating well on RA 02/11/2020 back on isolation due to COVID-19 positive status again; currently being worked up for positive blood culture 02/09/2020 off isolation; saturating well on RA 02/08/2020 feeling better; COVID-19 PCR neg 02/07/2020 reports feeling better; COVID-19 PCR pending 02/06/2020 pt laying in bed; reports feeling better General Appearance: WD/WN, no acute distress HEENT: normocephalic, atraumatic Respiratory: chest wall non-tender, lungs clear Cardiovascular: normal rate, regular rhythm Abdomen: normal bowel sounds, soft, non tender, other - obese Microbiology Date/Time Source Procedure Growth Status 02/10/20 06:30 Nasopharynx SARS-CoV-2 RdRp Gene Assay - Final Complete Laboratory Tests 02/12/20 06:04: White Blood Count 10.8, Red Blood Count 5.92, Hemoglobin 16.8, Hematocrit 50.0, Mean Corpuscular Volume 85, Mean Corpuscular Hemoglobin 28.3, Mean Corpuscular Hemoglobin Concent 33.5, Red Cell Distribution Width 13.8, Platelet Count 325, Mean Platelet Volume 7.7, Neutrophils (%) (Auto) 77.7H, Lymphocytes (%) (Auto) 14.8L, Monocytes (%) (Auto) 5.7, Eosinophils (%) (Auto) 0.8, Basophils (%) (Auto) 1.1, Sodium Level 138, Potassium Level 4.0, Chloride Level 101, Carbon Dioxide Level 30, Anion Gap 7, Blood Urea Nitrogen 20H, Creatinine 0.9, Estimat Glomerular Filtration Rate > 60, Glucose Level 97, Calcium Level 8.7, Total Bilirubin 0.4, Aspartate Amino Transf (AST/SGOT) 33, Alanine Aminotransferase (ALT/SGPT) 93H, Alkaline Phosphatase 83, Total Protein 7.8, Albumin 3.8, Globulin 4.0, Albumin/Globulin Ratio 0.9L Current Medications Medications (Trade) Dose Ordered Sig/Dennis Route PRN Reason Start Time Stop Time Status Last Admin Dose Admin Acetaminophen (Tylenol) 650 mg Q4H PRN ORAL Temp >100.5 02/05/20 13:15 03/06/20 13:14 02/09/20 22:37 Acetaminophen (Tylenol) 650 mg Q4H PRN ORAL Pain (1-3) 02/09/20 08:30 03/10/20 08:29 02/09/20 08:25 Amlodipine Besylate (Norvasc) 5 mg BID ORAL 02/10/20 09:00 03/11/20 08:59 02/12/20 08:57 Bisacodyl (Dulcolax) 10 mg HSPRN PRN RECTAL Constipation 02/05/20 13:15 05/05/20 13:14 Cefazolin Sodium 50 ml @ 100 mls/hr Q8H IV 02/09/20 00:00 02/16/20 00:00 02/12/20 08:30 Dexamethasone Sodium Phosphate (Decadron 4mg/ml vial) 6 mg DAILY IVP 02/05/20 15:00 02/14/20 14:59 02/12/20 08:30 Dextrose (Dextrose 50%) 25 ml Q30M PRN IV Hypoglycemia 02/05/20 13:15 05/05/20 13:14 Dextrose (Dextrose 50%) 50 ml Q30M PRN IV Hypoglycemia 02/05/20 13:15 05/05/20 13:14 Docusate Sodium (Colace) 100 mg EVERY 12 HOURS ORAL 02/05/20 21:00 03/06/20 20:59 02/12/20 08:31 Enoxaparin Sodium (Lovenox) 40 mg DAILY SUBQ 02/05/20 15:00 05/05/20 14:59 02/12/20 08:32 Hydralazine HCl (Apresoline) 25 mg Q6HR ORAL 02/10/20 18:00 05/10/20 17:59 02/12/20 12:08 Hydromorphone HCl (Dilaudid) 0.5 mg Q4H PRN IVP For Pain 02/11/20 08:42 02/18/20 08:41 02/12/20 05:56 Magnesium Hydroxide (Mom) 30 ml HSPRN PRN ORAL Constipation 02/05/20 13:15 03/06/20 13:14 Nitroglycerin (Ntg) 0.4 mg Q5M PRN SL Prn Chest Pain 02/05/20 06:15 03/06/20 06:14 02/05/20 06:26 Ondansetron HCl (Zofran) 4 mg Q6H PRN IVP Nausea & Vomiting 02/05/20 13:15 03/06/20 13:14 Pantoprazole (Protonix) 40 mg DAILY ORAL 02/06/20 09:00 03/07/20 08:59 12/12/20 08:32 Polyethylene Glycol (Miralax) 17 gm HSPRN PRN ORAL Constipation 02/05/20 13:15 03/06/20 13:14 Assessment/Plan Assessment/Plan 1. High suspicion for COVID-19 pneumonia. - on Decadron - COVID-19 testing 02/05/2020 neg - repeat COVID-19 PCR positive - CTA 02/05/2020 ground-glass and consolidating infiltrates in the dependent portions of both lower lobes and to lesser degree the upper lobes consistent with bilateral pneumonia. No evidence of pulmonary embolus. - Continue dexamethasone, doxycycline per ID -Saturating well on RA - Mycoplasma pneumoniae IgG 273; M. pneumoniae IgM titer within normal limits 2. Initial negative rapid COVID-19 gene assay. 3. Smoker. 4. DVT ppx - on lovenox 5. Hypertension - on hydralazine, and norvasc - Switched to cardiac diet 6. Blood culture positive for gram positive cocci staph aureus - on Abx - CT abd/pelvis showed no abscess per ID - F/u TTE per ID - FERNY held off due to COVID-19 status We will follow carefully. The care for this patient was discussed with my supervising physician. Time spent for this case was approximately 31 minutes.The patient was seen and examined at bedside and all new and available data was reviewed in the patients chart. I agree with the above findings, impression, and plan. (Patient was seen earlier today. Signature timestamp does not reflect patient encounter time) Edilson ePacock MD Feb 12, 2020 14:32 John Mata MD Feb 12, 2020 18:14
--- NOTE | 2020-02-12 15:06 | NUR ---
ASE MANAGEMENT:REVIEW 02/12/20 SI: COVID PNEUMONIA. BACTEREMIA 97.9 70 18 161/97 95% ON RA BUN+20 IS: IV ANCEF Q8HRS IV DECADRON QD HYDRALAZINE PO Q6HRS NORVASC PO BID PROTONIX PO QD LOVENOX SQ QD : TELEMETRY STATUS DCP: FROM HOME
--- NOTE | 2020-02-12 15:55 | Cardiology Progress Note ---
Assessment/Plan Problem List: (1) Hypertension (2) COVID-19 virus infection (3) Staphylococcus aureus bacteremia (4) Chest pain (5) Pneumonia Status: stable, progressing Status Narrative Pt stable overall, with no fever, decreasing wbc and nl o2 sats. His BP is elevated He has L sided CP which appears non cardiac - musculoskeletal v pleuritic Assessment/Plan Continue current treatment w/ iv abx for pneumonia and staph bacteremia Continue norvasc 5 mg bid for htn and consider addition of a second agent if BP remains elevated. FERNY deferred due to covid infection Subjective ROS Limited/Unobtainable: No Subjective Cardiology for Dr. Awan Pt without c/o dyspnea. feels weak. Objective Last 24 Hour Vital Signs Date Time Temp Pulse Resp B/P (MAP) Pulse Ox O2 Delivery O2 Flow Rate FiO2 02/12/20 12:08 161/97 02/12/20 12:00 97.9 65 18 161/97 (118) 95 02/12/20 12:00 70 02/12/20 09:00 Room Air Room Air 02/12/20 08:57 72 155/85 02/12/20 08:00 97.7 72 18 155/85 (108) 96 02/12/20 08:00 72 02/12/20 05:53 139/75 02/12/20 04:00 97.5 65 17 130/70 (90) 98 02/12/20 04:00 61 02/12/20 00:32 136/80 02/12/20 00:00 97.6 65 18 136/62 (86) 97 02/12/20 00:00 64 02/11/20 21:00 Room Air 02/11/20 20:00 97.7 72 18 150/62 (91) 96 02/11/20 20:00 71 02/11/20 17:56 72 162/90 02/11/20 17:55 162/90 02/11/20 16:00 97.2 68 19 158/68 (98) 96 02/11/20 16:00 75 General Appearance: WD/WN, no apparent distress, alert EENT: PERRL/EOMI Rhythm: NSR Cardiovascular: normal rate, regular rhythm, no gallop/murmur Respiratory/Chest: lungs clear Abdomen: non tender, soft Extremities: no swelling Intake and Output 02/11/20 02/12/20 19:00 07:00 Intake Total 720 ml 200 ml Output Total 600 ml Balance 120 ml 200 ml Intake Oral 720 ml 200 ml Output Urine Total 600 ml # Voids 3 Laboratory Tests Test 02/12/20 06:04 White Blood Count 10.8 K/UL (4.8-10.8) Red Blood Count 5.92 M/UL (4.70-6.10) Hemoglobin 16.8 G/DL (14.2-18.0) Hematocrit 50.0 % (42.0-52.0) Mean Corpuscular Volume 85 FL (80-99) Mean Corpuscular Hemoglobin 28.3 PG (27.0-31.0) Mean Corpuscular Hemoglobin Concent 33.5 G/DL (32.0-36.0) Red Cell Distribution Width 13.8 % (11.6-14.8) Platelet Count 325 K/UL (150-450) Mean Platelet Volume 7.7 FL (6.5-10.1) Neutrophils (%) (Auto) 77.7 % (45.0-75.0) H Lymphocytes (%) (Auto) 14.8 % (20.0-45.0) L Monocytes (%) (Auto) 5.7 % (1.0-10.0) Eosinophils (%) (Auto) 0.8 % (0.0-3.0) Basophils (%) (Auto) 1.1 % (0.0-2.0) Sodium Level 138 MMOL/L (136-145) Potassium Level 4.0 MMOL/L (3.5-5.1) Chloride Level 101 MMOL/L (98-107) Carbon Dioxide Level 30 MMOL/L (21-32) Anion Gap 7 mmol/L (5-15) Blood Urea Nitrogen 20 mg/dL (7-18) H Creatinine 0.9 MG/DL (0.55-1.30) Estimat Glomerular Filtration Rate > 60 mL/min (>60) Glucose Level 97 MG/DL (74-106) Calcium Level 8.7 MG/DL (8.5-10.1) Total Bilirubin 0.4 MG/DL (0.2-1.0) Aspartate Amino Transf (AST/SGOT) 33 U/L (15-37) Alanine Aminotransferase (ALT/SGPT) 93 U/L (12-78) H Alkaline Phosphatase 83 U/L (46-116) Total Protein 7.8 G/DL (6.4-8.2) Albumin 3.8 G/DL (3.4-5.0) Globulin 4.0 g/dL Albumin/Globulin Ratio 0.9 (1.0-2.7) L Microbiology Date/Time Source Procedure Growth Status 02/10/20 06:30 Nasopharynx SARS-CoV-2 RdRp Gene Assay - Final Complete Lily Rene MD Feb 12, 2020 15:55
[2020-02-12 16:00] VITALS: BP 159/92
[2020-02-12] MEDS: Nitroglycerin Subl 0.4mg tab SL PRN (17:40)
--- NOTE | 2020-02-12 18:51 | NUR ---
NURSE HAND-OFF REPORT: Important Events on Shift:[Pt complained of 5/10 chest pain about 1 hour ago, nitro x 2 did not reduce and he refused 3rd dose. Dilauded given and pain completely disappeared. Pt also expressed anxiety, began to cry and worries about his health. Therapeutic communication given, stayed with patient until he was calm and stable.] Patient Status: [In room in chair watching tv stable] Diet: [Cardiac] Pending Orders: [] Pending Results/Labs:[] Pending MD notification:[] Latest Vital Signs: Temperature 97.7 , Pulse 67 , B/P 165 /87 , Respiratory Rate 18 , O2 SAT 95 , Room Air, O2 Flow Rate 2.0 . Vital Sign Comment: [] EKG Rhythm: Sinus Rhythm Rhythm change?: N Notified?: Y Bang Awan MD Response: Message left await call Latest Hassan Fall Score: 20 Fall Risk: Low Risk Safety Measures: Call light Within Reach, Bed Alarm Zone 2, Side Rails Side Rails x2, Bed position Low and Locked. Fall Precautions: Yellow Socks Patient Fall Education Report given to [Pending Rn assignment]. Addendum: 02/12/20 at 1948 by Franchesca Laws RN Report given to Shyam MATHEW
--- NOTE | 2020-02-12 19:55 | NUR ---
NURSE NOTES: Received report from PRIYANKA Sorensen. Patient is awake on bed, alert and oriented x 4. school lunch monitor is in place, shows sinus rhythm with no chest pain reported at this time. On room air, sating 96%. On cardiac diet, instructed and amenable. IV site is on left forearm g-20 saline locked that is patent and intact. Safety measures are in place, bed in lowest and locked position, side rails up x 2, call light button and bedside table within reach, instructed to call for any assistance needed. Will continue plan of care.
[2020-02-12 20:00] VITALS: BP 156/91
--- NOTE | 2020-02-12 21:04 | Infectious Diseases Prog Note ---
Assessment/Plan Assessment/Plan ASSESSMENT AND PLAN: 1. staph aureus bacteremia/mssa, ? source, ? endocarditis, sepsis, leukocytosis, ? CAP, ? septic emboli, covid-19 + on 3rd test, less likely CAP with + covid-19 test, mycoplasma igm negative - continue cefazolin - day # 3 post negative surveillance blood cultures - dexamethasone for covid-19 pna - CT abdomen and pelvis without abscess - f/u on TTE, FERNY held secondary to + covid-19 test - monitor labs and surveillance blood cultures - consider wbc scan if TTE/FERNY negative for bacteremia source identification 2. covid-19 isolation 3. Hypertension history. Blood pressure treatment primary care team. 4. Elevated blood sugars. Blood sugar treatment per primary care team. 5. No known drug allergies. 6. Social history is positive for smoking. 7. Family history is noncontributory. 8. MAR was noted. 9. Case was discussed with RN. 10. Continue treatment per primary consultants. Subjective Constitutional: Denies: fever HEENT: Denies: congestion Respiratory: Denies: shortness of breath Cardiovascular: Denies: chest pain Gastrointestinal/Abdominal: Denies: nausea, vomiting, diarrhea Genitourinary: Denies: dysuria Neurologic: Denies: headache Psychiatric: Denies: depression Skin: Denies: rash Hematologic: Denies: bleeding Musculoskeletal: Denies: pain Allergies: Coded Allergies: No Known Allergies (Unverified , 02/05/20) Objective Last 24 Hour Vital Signs Date Time Temp Pulse Resp B/P (MAP) Pulse Ox O2 Delivery O2 Flow Rate FiO2 02/12/20 18:37 97.7 02/12/20 17:40 165/87 02/12/20 17:34 165/87 02/12/20 17:34 67 165/87 02/12/20 16:00 60 02/12/20 16:00 97.7 68 18 159/92 (114) 95 02/12/20 12:08 161/97 02/12/20 12:00 97.9 65 18 161/97 (118) 95 02/12/20 12:00 70 02/12/20 09:00 Room Air Room Air 02/12/20 08:57 72 155/85 02/12/20 08:00 97.7 72 18 155/85 (108) 96 02/12/20 08:00 72 02/12/20 05:53 139/75 02/12/20 04:00 97.5 65 17 130/70 (90) 98 02/12/20 04:00 61 02/12/20 00:32 136/80 02/12/20 00:00 97.6 65 18 136/62 (86) 97 02/12/20 00:00 64 Height (Feet): 5 Height (Inches): 10.00 Weight (Pounds): 240 General Appearance: no acute distress HEENT: normocephalic, atraumatic, anicteric, mucous membranes moist Respiratory/Chest: lungs clear, normal breath sounds, no respiratory distress, no accessory muscle use Cardiovascular: normal rate, regular rhythm, no gallop/murmur Abdomen: normal bowel sounds, soft, non tender, no organomegaly, non distended Genitourinary: other - no joseph Extremities: no cyanosis Skin: no rash Neurologic/Psychiatric: water resource agent II-XII 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 The infiltrates are typical for Covid 19. No evidence of pulmonary embolus. CT abdomen and pelvis: IMPRESSION: 1. Scattered hepatic hypodense lesions, too small to characterize on this examination without intravenous contrast. 2. Colonic diverticulosis without evidence of acute diverticulitis. 3. Scattered enlarged mesenteric lymph nodes, presumably reactive. teral pneumonia. The infiltrates are typical for Covid 19. No evidence of pulmonary embolus. Microbiology Date/Time Source Procedure Growth Status 02/10/20 06:30 Nasopharynx SARS-CoV-2 RdRp Gene Assay - Final Complete 02/09/20 07:20 Blood Blood Culture - Preliminary NO GROWTH AFTER 48 HOURS Resulted Microbiology Date/Time Source Procedure Growth Status 02/10/20 06:30 Nasopharynx SARS-CoV-2 RdRp Gene Assay - Final Complete Laboratory Tests Test 02/12/20 06:04 White Blood Count 10.8 K/UL (4.8-10.8) Red Blood Count 5.92 M/UL (4.70-6.10) Hemoglobin 16.8 G/DL (14.2-18.0) Hematocrit 50.0 % (42.0-52.0) Mean Corpuscular Volume 85 FL (80-99) Mean Corpuscular Hemoglobin 28.3 PG (27.0-31.0) Mean Corpuscular Hemoglobin Concent 33.5 G/DL (32.0-36.0) Red Cell Distribution Width 13.8 % (11.6-14.8) Platelet Count 325 K/UL (150-450) Mean Platelet Volume 7.7 FL (6.5-10.1) Neutrophils (%) (Auto) 77.7 % (45.0-75.0) H Lymphocytes (%) (Auto) 14.8 % (20.0-45.0) L Monocytes (%) (Auto) 5.7 % (1.0-10.0) Eosinophils (%) (Auto) 0.8 % (0.0-3.0) Basophils (%) (Auto) 1.1 % (0.0-2.0) Sodium Level 138 MMOL/L (136-145) Potassium Level 4.0 MMOL/L (3.5-5.1) Chloride Level 101 MMOL/L (98-107) Carbon Dioxide Level 30 MMOL/L (21-32) Anion Gap 7 mmol/L (5-15) Blood Urea Nitrogen 20 mg/dL (7-18) H Creatinine 0.9 MG/DL (0.55-1.30) Estimat Glomerular Filtration Rate > 60 mL/min (>60) Glucose Level 97 MG/DL (74-106) Calcium Level 8.7 MG/DL (8.5-10.1) Total Bilirubin 0.4 MG/DL (0.2-1.0) Aspartate Amino Transf (AST/SGOT) 33 U/L (15-37) Alanine Aminotransferase (ALT/SGPT) 93 U/L (12-78) H Alkaline Phosphatase 83 U/L (46-116) Total Protein 7.8 G/DL (6.4-8.2) Albumin 3.8 G/DL (3.4-5.0) Globulin 4.0 g/dL Albumin/Globulin Ratio 0.9 (1.0-2.7) L Current Medications Medications (Trade) Dose Ordered Sig/Dennis Route PRN Reason Start Time Stop Time Status Last Admin Dose Admin Acetaminophen (Tylenol) 650 mg Q4H PRN ORAL Temp >100.5 02/05/20 13:15 03/06/20 13:14 02/09/20 22:37 Acetaminophen (Tylenol) 650 mg Q4H PRN ORAL Pain (1-3) 02/09/20 08:30 03/10/20 08:29 02/09/20 08:25 Amlodipine Besylate (Norvasc) 5 mg BID ORAL 02/10/20 09:00 03/11/20 08:59 02/12/20 17:34 Bisacodyl (Dulcolax) 10 mg HSPRN PRN RECTAL Constipation 02/05/20 13:15 05/05/20 13:14 Cefazolin Sodium 50 ml @ 100 mls/hr Q8H IV 02/09/20 00:00 02/16/20 00:00 02/12/20 16:02 Dexamethasone Sodium Phosphate (Decadron 4mg/ml vial) 6 mg DAILY IVP 02/05/20 15:00 02/14/20 14:59 02/12/20 08:30 Dextrose (Dextrose 50%) 25 ml Q30M PRN IV Hypoglycemia 02/05/20 13:15 05/05/20 13:14 Dextrose (Dextrose 50%) 50 ml Q30M PRN IV Hypoglycemia 02/05/20 13:15 05/05/20 13:14 Enoxaparin Sodium (Lovenox) 40 mg DAILY SUBQ 02/05/20 15:00 05/05/20 14:59 02/12/20 08:32 Hydralazine HCl (Apresoline) 25 mg Q6HR ORAL 02/10/20 18:00 05/10/20 17:59 02/12/20 17:34 Hydromorphone HCl (Dilaudid) 0.5 mg Q4H PRN IVP For Pain 02/11/20 08:42 02/18/20 08:41 02/12/20 18:07 Magnesium Hydroxide (Mom) 30 ml HSPRN PRN ORAL Constipation 02/05/20 13:15 03/06/20 13:14 Nitroglycerin (Ntg) 0.4 mg Q5M PRN SL Prn Chest Pain 02/05/20 06:15 03/06/20 06:14 02/12/20 17:40 Ondansetron HCl (Zofran) 4 mg Q6H PRN IVP Nausea & Vomiting 02/05/20 13:15 03/06/20 13:14 Pantoprazole (Protonix) 40 mg DAILY ORAL 02/06/20 09:00 03/07/20 08:59 02/12/20 08:32 Polyethylene Glycol (Miralax) 17 gm HSPRN PRN ORAL Constipation 02/05/20 13:15 03/06/20 13:14 Kisha Salazar MD Feb 12, 2020 21:04
[2020-02-13] VITALS: BP 143/76
[2020-02-13 04:00] VITALS: BP 147/79
[2020-02-13] MEDS: HydrALAZINE 25mg tab ORAL SCH ×4 (05:56→23:45)
--- NOTE | 2020-02-13 06:59 | NUR ---
NURSE HAND-OFF REPORT: Important Events on Shift: Patient has been resting well comfortably with no complaints made the whole shift. Patient Status: Patient is awake on bed, in stable condition. Plan of care endorsed. Diet: Cardiac diet Pending Orders: none Pending Results/Labs: AM lab result Pending MD notification:none Latest Vital Signs: Temperature 97.1 , Pulse 63 , B/P 147 /79 , Respiratory Rate 19 , O2 SAT 95 , Room Air, O2 Flow Rate 2.0 . Vital Sign Comment: stable EKG Rhythm: Sinus Rhythm Rhythm change?: N Notified?: N -Dr. Emperatriz INTERIANO Response: Message left await call Latest Hassan Fall Score: 20 Fall Risk: Low Risk Safety Measures: Call light Within Reach, Bed Alarm Zone 2, Side Rails Side Rails x2, Bed position Low and Locked. Fall Precautions: Yellow Socks Patient Fall Education Report given to PRIYANKA Sorensen.
--- NOTE | 2020-02-13 07:00 | NUR ---
NURSE NOTES: Received pt from Tiana Howe RN. Pt standing near bed, steady gait noted. Bed low and locked, call light resting in bed. Pt makes no complaint of SOB, no distress noted.
[2020-02-13 08:00] VITALS: BP 152/82
[2020-02-13] MEDS: ceFAZolin 2gm/50ml Premix 50 ML IV SCH ×3 (08:21→23:44)
[2020-02-13] MEDS: Enoxaparin 40mg Inj SUBQ SCH (08:23)
[2020-02-13 12:00] VITALS: BP 147/86
--- NOTE | 2020-02-13 14:27 | Pulmonology Progress Note ---
Subjective ROS Limited/Unobtainable: No Interval Events: s/p chest MSK pain resolved with dilaudid; anxious Constitutional: Denies: fever HEENT: Repors: no symptoms Respiratory: Reports: dry cough Cardiovascular: Denies: no symptoms, chest pain, palpitations, other Gastrointestinal/Abdominal: Denies: nausea, vomiting, diarrhea Psychiatric: Denies: depression Skin: Denies: rash Musculoskeletal: Denies: pain Allergies: Coded Allergies: No Known Allergies (Unverified , 02/05/20) Subjective pt requesting to be off laxatives saying he can have bowel movements without any problem Objective Last 24 Hour Vital Signs Date Time Temp Pulse Resp B/P (MAP) Pulse Ox O2 Delivery O2 Flow Rate FiO2 02/13/20 13:23 147/86 02/13/20 12:00 97.7 86 18 147/86 (106) 96 02/13/20 12:00 77 02/13/20 09:00 Room Air 02/13/20 08:22 68 152/82 02/13/20 08:00 86 02/13/20 08:00 97.5 90 20 152/82 (105) 95 02/13/20 05:56 147/79 02/13/20 04:00 97.1 63 19 147/79 (101) 95 02/13/20 04:00 63 02/13/20 00:00 96.8 61 20 143/76 (98) 96 02/13/20 00:00 59 02/12/20 23:52 156/91 02/12/20 21:00 Room Air 02/12/20 20:00 67 02/12/20 20:00 98.0 69 19 156/91 (112) 95 02/12/20 18:37 97.7 02/12/20 17:40 165/87 02/12/20 17:34 165/87 02/12/20 17:34 67 165/87 02/12/20 16:00 60 02/12/20 16:00 97.7 68 18 159/92 (114) 95 Intake and Output 02/12/20 02/13/20 19:00 07:00 Intake Total 950 ml 1500 ml Output Total 950 ml 1700 ml Balance 0 ml -200 ml Intake Oral 950 ml 1500 ml Output Urine Total 950 ml 1700 ml # Voids 5 5 Objective 02/13/2020 pt asleep; saturating well on RA 02/12/2020 sitting up in a chair; saturating well on RA 02/11/2020 back on isolation due to COVID-19 positive status again; currently being worked up for positive blood culture 02/09/2020 off isolation; saturating well on RA 02/08/2020 feeling better; COVID-19 PCR neg 02/07/2020 reports feeling better; COVID-19 PCR pending 02/06/2020 pt laying in bed; reports feeling better General Appearance: WD/WN, no acute distress HEENT: normocephalic, atraumatic Respiratory: chest wall non-tender, lungs clear Cardiovascular: normal rate, regular rhythm Abdomen: normal bowel sounds, soft, non tender, other - obese Current Medications Medications (Trade) Dose Ordered Sig/Dennis Route PRN Reason Start Time Stop Time Status Last Admin Dose Admin Acetaminophen (Tylenol) 650 mg Q4H PRN ORAL Temp >100.5 02/05/20 13:15 03/06/20 13:14 02/09/20 22:37 Acetaminophen (Tylenol) 650 mg Q4H PRN ORAL Pain (1-3) 02/09/20 08:30 03/10/20 08:29 02/09/20 08:25 Amlodipine Besylate (Norvasc) 5 mg BID ORAL 02/10/20 09:00 03/11/20 08:59 02/13/20 08:22 Bisacodyl (Dulcolax) 10 mg HSPRN PRN RECTAL Constipation 02/05/20 13:15 05/05/20 13:14 Cefazolin Sodium 50 ml @ 100 mls/hr Q8H IV 02/09/20 00:00 02/16/20 00:00 02/13/20 08:21 Dexamethasone Sodium Phosphate (Decadron 4mg/ml vial) 6 mg DAILY IVP 02/05/20 15:00 02/14/20 14:59 02/13/20 08:21 Dextrose (Dextrose 50%) 25 ml Q30M PRN IV Hypoglycemia 02/05/20 13:15 05/05/20 13:14 Dextrose (Dextrose 50%) 50 ml Q30M PRN IV Hypoglycemia 02/05/20 13:15 05/05/20 13:14 Enoxaparin Sodium (Lovenox) 40 mg DAILY SUBQ 02/05/20 15:00 05/05/20 14:59 02/13/20 08:23 Hydralazine HCl (Apresoline) 25 mg Q6HR ORAL 02/10/20 18:00 05/10/20 17:59 02/13/20 13:23 Hydromorphone HCl (Dilaudid) 0.5 mg Q4H PRN IVP For Pain 02/11/20 08:42 02/18/20 08:41 02/12/20 18:07 Magnesium Hydroxide (Mom) 30 ml HSPRN PRN ORAL Constipation 02/05/20 13:15 03/06/20 13:14 Nitroglycerin (Ntg) 0.4 mg Q5M PRN SL Prn Chest Pain 02/05/20 06:15 03/06/20 06:14 02/12/20 17:40 Ondansetron HCl (Zofran) 4 mg Q6H PRN IVP Nausea & Vomiting 02/05/20 13:15 03/06/20 13:14 Pantoprazole (Protonix) 40 mg DAILY ORAL 02/06/20 09:00 03/07/20 08:59 02/13/20 08:22 Polyethylene Glycol (Miralax) 17 gm HSPRN PRN ORAL Constipation 02/05/20 13:15 03/06/20 13:14 Assessment/Plan Assessment/Plan 1. High suspicion for COVID-19 pneumonia. - on Decadron - COVID-19 testing 02/05/2020 neg - repeat COVID-19 PCR positive - CTA 02/05/2020 ground-glass and consolidating infiltrates in the dependent portions of both lower lobes and to lesser degree the upper lobes consistent with bilateral pneumonia. No evidence of pulmonary embolus. - Well saturated on RA - Mycoplasma pneumoniae IgG 273; M. pneumoniae IgM titer within normal limits 2. Initial negative rapid COVID-19 gene assay. 3. Smoker. 4. DVT ppx - on lovenox 5. Hypertension - on hydralazine, and norvasc - Switched to cardiac diet 6. Blood culture positive for gram positive cocci staph aureus - on Abx - CT abd/pelvis showed no abscess per ID - F/u TTE per ID - FERNY held off due to COVID-19 status We will follow carefully. The care for this patient was discussed with my supervising physician. Time spent for this case was approximately 31 minutes. The patient was seen and examined at bedside and all new and available data was reviewed in the patients chart. I agree with the above findings, impression, and plan. (Patient was seen earlier today. Signature timestamp does not reflect patient encounter time) Edilson Peacock MD Feb 13, 2020 14:27 John Mata MD Feb 13, 2020 17:04
--- NOTE | 2020-02-13 14:58 | NUR ---
CASE MANAGEMENT:REVIEW 02/12/20 SI: COVID PNEUMONIA. BACTEREMIA 97.7 86 18 147/86 96% ON RA IS: IV ANCEF Q8HRS IV DECADRON QD HYDRALAZINE PO Q6HRS NORVASC PO BID PROTONIX PO QD LOVENOX SQ QD IV DILAUDID Q4HRS PRN : TELEMETRY STATUS DCP: FROM HOME
[2020-02-13 16:00] VITALS: BP 139/84
--- NOTE | 2020-02-13 16:48 | Cardiology Progress Note ---
Assessment/Plan Problem List: (1) Hypertension (2) COVID-19 virus infection (3) Staphylococcus aureus bacteremia (4) Chest pain (5) Pneumonia Status: stable, progressing Status Narrative Pt stable overall, with no fever, decreasing wbc and nl o2 sats. BPs are consistently elevated - to 150-160s systolic Assessment/Plan Continue current treatment w/ iv abx for pneumonia and staph bacteremia FERNY to be considered as outpt, once pt off COVID isolation Will continue amlodipine and add losartan 25 mg /d for HTN Subjective Subjective Cardiology for Dr. Awan Pt with no new c/o. Events noted Objective Last 24 Hour Vital Signs Date Time Temp Pulse Resp B/P (MAP) Pulse Ox O2 Delivery O2 Flow Rate FiO2 02/13/20 16:00 97.9 76 20 139/84 (102) 97 02/13/20 13:23 147/86 02/13/20 12:00 97.7 86 18 147/86 (106) 96 02/13/20 12:00 77 02/13/20 09:00 Room Air 02/13/20 08:22 68 152/82 02/13/20 08:00 86 02/13/20 08:00 97.5 90 20 152/82 (105) 95 02/13/20 05:56 147/79 02/13/20 04:00 97.1 63 19 147/79 (101) 95 02/13/20 04:00 63 02/13/20 00:00 96.8 61 20 143/76 (98) 96 02/13/20 00:00 59 02/12/20 23:52 156/91 02/12/20 21:00 Room Air 02/12/20 20:00 67 02/12/20 20:00 98.0 69 19 156/91 (112) 95 02/12/20 18:37 97.7 02/12/20 17:40 165/87 02/12/20 17:34 165/87 02/12/20 17:34 67 165/87 General Appearance: other - exam deferred - pt on COVID isolation Intake and Output 02/12/20 02/13/20 19:00 07:00 Intake Total 950 ml 1500 ml Output Total 950 ml 1700 ml Balance 0 ml -200 ml Intake Oral 950 ml 1500 ml Output Urine Total 950 ml 1700 ml # Voids 5 5 Lily Rene MD Feb 13, 2020 16:48
--- NOTE | 2020-02-13 18:22 | NUR ---
NURSE HAND-OFF REPORT: Important Events on Shift:[Pt continues to be anxious but stable. No complaint of chest pain. Saturation good. Ancef continuing] Patient Status: [in bed resting stable] Diet: [Cardiac] Pending Orders: [] Pending Results/Labs:[] Pending MD notification:[] Latest Vital Signs: Temperature 97.9 , Pulse 68 , B/P 150 /98 , Respiratory Rate 20 , O2 SAT 97 , Room Air, O2 Flow Rate 2.0 . Vital Sign Comment: [] EKG Rhythm: Sinus Rhythm Rhythm change?: N MD Notified?: N -Dr. Emperatriz INTERIANO Response: Message left await call Latest Hassan Fall Score: 20 Fall Risk: Low Risk Safety Measures: Call light Within Reach, Bed Alarm Zone 2, Side Rails Side Rails x2, Bed position Low and Locked. Fall Precautions: Yellow Socks Patient Fall Education Report given to [Pending Rn assignment]. Addendum: 02/13/20 at 1935 by Franchesca Laws RN Update given to Tiana MATHEW
--- NOTE | 2020-02-13 19:45 | NUR ---
NURSE NOTES: Report received from PRIYANKA Sorensen. Patient is awake on bed, alert and oriented x 4. On cardiac diet, instructed and amenable. radiation monitor is in place, shows sinus rhythm with no chest pain reported. On room air. Ambulatory with steady gait. IV site is on left forearm g-20 saline locked that is patent and intact. Safety measures are in place, bed in lowest and locked position, side rails up x 2, call light button and bedside table within reach, instructed to call for any assistance needed. Will continue plan of care.
[2020-02-13 20:00] VITALS: BP 154/99
[2020-02-13] MEDS: Hydromorphone 0.5mg/0.5ml inj IVP PRN (23:45)
[2020-02-14] VITALS: BP 138/82
[2020-02-14 04:00] VITALS: BP 143/86
[2020-02-14 04:14] LABS: BASOPHILS % (AUTO) 1.2 % (0.0-2.0); EOSINOPHILS % (AUTO) 0.1 % (0.0-3.0); HEMATOCRIT 45.5 % (42.0-52.0); HEMOGLOBIN 15.8 G/DL (14.2-18.0); LYMPHOCYTES % (AUTO) 13.1 % (20.0-45.0); MEAN CORPUSCULAR VOLUME 83 FL (80-99); MONOCYTES % (AUTO) 8.8 % (1.0-10.0); NEUTROPHILS % (AUTO) 76.9 % (45.0-75.0); PLATELET COUNT 241 K/UL (150-450); RED BLOOD COUNT 5.51 M/UL (4.70-6.10); RED CELL DISTRIBUTION WIDTH 14.5 % (11.6-14.8); WHITE BLOOD COUNT 9.5 K/UL (4.8-10.8)
[2020-02-14 04:28] LABS: ANION GAP 8 mmol/L (5-15); BLOOD UREA NITROGEN 13 mg/dL (7-18); CALCIUM 8.1 MG/DL (8.5-10.1); CARBON DIOXIDE 27 MMOL/L (21-32); CHLORIDE 101 MMOL/L (98-107); CREATININE 0.9 MG/DL (0.55-1.30); POTASSIUM 4.1 MMOL/L (3.5-5.1); SODIUM 136 MMOL/L (136-145)
[2020-02-14] MEDS: Hydromorphone 0.5mg/0.5ml inj IVP PRN ×5 (05:53→22:20)
[2020-02-14] MEDS: HydrALAZINE 25mg tab ORAL SCH ×3 (05:53→17:41)
--- NOTE | 2020-02-14 07:25 | NUR ---
NURSE HAND-OFF REPORT: Important Events on Shift: Patient complaints of left arm pain and dilaudid 0.5 mg was given. No chest pain nor SOB reported. Patient had a feverish episode around 0400 100.2, cooling measures provided. Patient Status: Patient is awake on bed in stable condition. Plan of care endorsed. Diet: Cardiac diet Pending Orders: none Pending Results/Labs:AM lab result Pending MD notification:none Latest Vital Signs: Temperature 100.0 , Pulse 84 , B/P 138 /82 , Respiratory Rate 18 , O2 SAT 96 , Room Air, O2 Flow Rate 2.0 . Vital Sign Comment: stable EKG Rhythm: Sinus Rhythm Rhythm change?: N Notified?: N -Dr. Emperatriz INTERIANO Response: Message left await call Latest Hassan Fall Score: 20 Fall Risk: Low Risk Safety Measures: Call light Within Reach, Bed Alarm Zone 2, Side Rails Side Rails x2, Bed position Low and Locked. Fall Precautions: Yellow Socks Patient Fall Education Report given to PRIYANKA Walsh.
--- NOTE | 2020-02-14 07:27 | NUR ---
NURSE NOTES: pt is verbally responsive, alert and awake in bed. respiration is even and unlabored on room air. HOB elevated. no pain noted. no episodes of coughing noted at this time. call light is within reach.
[2020-02-14 08:00] VITALS: BP 117/71
[2020-02-14] MEDS: Enoxaparin 40mg Inj SUBQ SCH (09:59)
[2020-02-14] MEDS: ceFAZolin 2gm/50ml Premix 50 ML IV SCH ×2 (10:01→17:12)
[2020-02-14] MEDS: Losartan 25mg tab ORAL SCH (10:02)
[2020-02-14 12:00] VITALS: BP 138/79
[2020-02-14] MEDS ORDERED: Heparin1,000 units/500ml Premix(Conc:2 units/ml) IV PRN (12:00)
[2020-02-14] MEDS ORDERED: Lidocaine 1% Plain 30 ml INJ PRN (12:00)
--- NOTE | 2020-02-14 13:47 | Pulmonology Progress Note ---
Subjective ROS Limited/Unobtainable: No Interval Events: none major Constitutional: Denies: fever HEENT: Repors: no symptoms Respiratory: Reports: dry cough Cardiovascular: Denies: no symptoms, chest pain, palpitations, other Gastrointestinal/Abdominal: Denies: nausea, vomiting, diarrhea Psychiatric: Denies: depression Skin: Denies: rash Musculoskeletal: Denies: pain Allergies: Coded Allergies: No Known Allergies (Unverified , 02/05/20) Subjective pt requesting to be off laxatives saying he can have bowel movements without any problem Objective Last 24 Hour Vital Signs Date Time Temp Pulse Resp B/P (MAP) Pulse Ox O2 Delivery O2 Flow Rate FiO2 02/14/20 13:42 138/79 02/14/20 12:00 100.6 98 20 138/79 (98) 97 02/14/20 10:02 117/71 02/14/20 10:02 80 117/71 02/14/20 08:00 98.9 80 18 117/71 (86) 97 02/14/20 05:53 138/82 02/14/20 04:00 100.0 84 18 143/86 (105) 96 02/14/20 04:00 82 02/14/20 00:00 85 02/14/20 00:00 98.1 84 18 138/82 (100) 96 02/13/20 23:45 154/99 02/13/20 21:00 Room Air 02/13/20 20:00 83 02/13/20 20:00 98.5 75 20 154/99 (117) 96 02/13/20 17:46 150/98 02/13/20 17:46 68 150/98 02/13/20 16:00 97.9 76 20 139/84 (102) 97 02/13/20 16:00 81 Intake and Output 02/13/20 02/14/20 19:00 07:00 Intake Total 600 ml 1000 ml Output Total 1200 ml 900 ml Balance -600 ml 100 ml Intake Oral 600 ml 1000 ml Output Urine Total 1200 ml 900 ml Objective 02/14/2020 saturating well on RAD; NAD 02/13/2020 pt asleep; saturating well on RA 02/12/2020 sitting up in a chair; saturating well on RA 02/11/2020 back on isolation due to COVID-19 positive status again; currently being worked up for positive blood culture 02/09/2020 off isolation; saturating well on RA 02/08/2020 feeling better; COVID-19 PCR neg 02/07/2020 reports feeling better; COVID-19 PCR pending 02/06/2020 pt laying in bed; reports feeling better General Appearance: WD/WN, no acute distress HEENT: normocephalic, atraumatic Respiratory: chest wall non-tender, lungs clear Cardiovascular: normal rate, regular rhythm Abdomen: normal bowel sounds, soft, non tender, other - obese Laboratory Tests 02/14/20 04:00: White Blood Count 9.5, Red Blood Count 5.51, Hemoglobin 15.8, Hematocrit 45.5, Mean Corpuscular Volume 83, Mean Corpuscular Hemoglobin 28.7, Mean Corpuscular Hemoglobin Concent 34.7, Red Cell Distribution Width 14.5, Platelet Count 241, Mean Platelet Volume 7.0, Neutrophils (%) (Auto) 76.9H, Lymphocytes (%) (Auto) 13.1L, Monocytes (%) (Auto) 8.8, Eosinophils (%) (Auto) 0.1, Basophils (%) (Auto) 1.2, Sodium Level 136, Potassium Level 4.1, Chloride Level 101, Carbon Dioxide Level 27, Anion Gap 8, Blood Urea Nitrogen 13, Creatinine 0.9, Estimat Glomerular Filtration Rate > 60, Glucose Level 92, Calcium Level 8.1L Current Medications Medications (Trade) Dose Ordered Sig/Dennis Route PRN Reason Start Time Stop Time Status Last Admin Dose Admin Acetaminophen (Tylenol) 650 mg Q4H PRN ORAL Temp >100.5 02/05/20 13:15 03/06/20 13:14 02/14/20 13:41 Acetaminophen (Tylenol) 650 mg Q4H PRN ORAL Pain (1-3) 02/09/20 08:30 03/10/20 08:29 02/09/20 08:25 Amlodipine Besylate (Norvasc) 5 mg BID ORAL 02/10/20 09:00 03/11/20 08:59 02/14/20 10:02 Bisacodyl (Dulcolax) 10 mg HSPRN PRN RECTAL Constipation 02/05/20 13:15 05/05/20 13:14 Cefazolin Sodium 50 ml @ 100 mls/hr Q8H IV 02/09/20 00:00 02/16/20 00:00 02/14/20 10:01 Chlorhexidine Gluconate (Marlen-Hex 2%) 1 applic DAILY@2000 TOPIC 02/14/20 20:00 05/14/20 19:59 Dexamethasone Sodium Phosphate (Decadron 4mg/ml vial) 6 mg DAILY IVP 02/05/20 15:00 02/14/20 14:59 02/14/20 10:01 Dextrose (Dextrose 50%) 25 ml Q30M PRN IV Hypoglycemia 02/05/20 13:15 05/05/20 13:14 Dextrose (Dextrose 50%) 50 ml Q30M PRN IV Hypoglycemia 02/05/20 13:15 05/05/20 13:14 Enoxaparin Sodium (Lovenox) 40 mg DAILY SUBQ 02/05/20 15:00 05/05/20 14:59 02/14/20 09:59 Heparin Sodium/ Sodium Chloride (Heparin 1000 units/500ml Premix) 1,000 unit ONCE PRN IV PICC PLACEMENT 02/14/20 12:00 02/15/20 23:59 Hydralazine HCl (Apresoline) 25 mg Q6HR ORAL 02/10/20 18:00 05/10/20 17:59 02/14/20 13:42 Hydromorphone HCl (Dilaudid) 0.5 mg Q4H PRN IVP For Pain 02/11/20 08:42 02/18/20 08:41 02/14/20 13:41 Lidocaine HCl (Xylocaine 1% 30ml) 30 ml ONCE PRN INJ PICC PLACEMENT 02/14/20 12:00 02/15/20 23:59 Losartan Potassium (Cozaar) 25 mg DAILY ORAL 02/14/20 09:00 03/15/20 08:59 02/14/20 10:02 Magnesium Hydroxide (Mom) 30 ml HSPRN PRN ORAL Constipation 02/05/20 13:15 03/06/20 13:14 Nitroglycerin (Ntg) 0.4 mg Q5M PRN SL Prn Chest Pain 02/05/20 06:15 03/06/20 06:14 02/12/20 17:40 Ondansetron HCl (Zofran) 4 mg Q6H PRN IVP Nausea & Vomiting 02/05/20 13:15 03/06/20 13:14 Pantoprazole (Protonix) 40 mg DAILY ORAL 02/06/20 09:00 03/07/20 08:59 02/14/20 10:01 Polyethylene Glycol (Miralax) 17 gm HSPRN PRN ORAL Constipation 02/05/20 13:15 03/06/20 13:14 Assessment/Plan Assessment/Plan 1. COVID-19 pneumonia. - on Decadron - COVID-19 testing 02/05/2020 neg - repeat COVID-19 PCR positive - CTA 02/05/2020 ground-glass and consolidating infiltrates in the dependent portions of both lower lobes and to lesser degree the upper lobes consistent with bilateral pneumonia. No evidence of pulmonary embolus. - Well saturated on RA - Mycoplasma pneumoniae IgG 273; M. pneumoniae IgM titer within normal limits 2. Initial negative rapid COVID-19 gene assay. 3. Smoker. 4. DVT ppx - on lovenox 5. Hypertension - on hydralazine, and norvasc - Switched to cardiac diet 6. Blood culture positive for gram positive cocci staph aureus - on Abx - CT abd/pelvis showed no abscess per ID - F/u TTE per ID - FERNY held off due to COVID-19 status - PICC line in place Will initiate discharge IV Ancef 2 g IV q 8 x 2 weeks Home health We will follow carefully. The care for this patient was discussed with my supervising physician. Time spent for this case was approximately 31 minutes The patient was seen and examined at bedside and all new and available data was reviewed in the patients chart. I agree with the above findings, impression, and plan. (Patient was seen earlier today. Signature timestamp does not reflect patient encounter time) John Mata MD . Edilson Marinelli Feb 14, 2020 13:47 John Mata MD Feb 14, 2020 16:45
--- NOTE | 2020-02-14 15:01 | NUR ---
CASE MANAGEMENT:REVIEW 02/14/20 SI: COVID PNEUMONIA. BACTEREMIA 100.6 98 20 138/79 97% ON RA IS: IV ANCEF Q8HRS IV DECADRON QD HYDRALAZINE PO Q6HRS NORVASC PO BID COZAAR PO QD PROTONIX PO QD LOVENOX SQ QD IV DILAUDID Q4HRS PRN : TELEMETRY STATUS DCP: FROM HOME PLAN: PICC LINE TO BE PLACED TODAY DISCHARGE PLAN IS FOR HOME/HOTEL FOR 2 WEEKS OF IV ABX
--- NOTE | 2020-02-14 15:46 | NUR ---
RADIOLOGY NOTE: LEFT UPPER EXTREMITY PICC PLACED.
[2020-02-14 16:00] VITALS: BP 124/75
--- NOTE | 2020-02-14 16:11 | Pre-Procedure Note/Attestation ---
Pre-Procedure Note/Attestation Complete Prior to Procedure Planned Procedure: not applicable Procedure Narrative: PICC Indications for Procedure Pre-Operative Diagnosis: needs access Attestation I attest that I discussed the nature of the procedure; its benefits; risks and complications; and alternatives (and the risks and benefits of such alternatives), prior to the procedure, with the patient (or the patient's legal sales representative leather goods). I attest that, if there was a reasonable possibility of needing a blood transfu nick, the patient (or the patient's legal sales representative leather goods) was given the [facility] standardized written summary, pursuant to the [place] Blood Safety Act ([place] Health and Safety Code # 1645, as amended). I attest that I re-evaluated the patient just prior to the surgery and that there has been no change in the patient's H&P, except as documented below: Homero Chowdhury MD Feb 14, 2020 16:11
--- NOTE | 2020-02-14 16:12 | Brief Operative Note ---
Immediate Post Operative Note Operative Note Pre-op Diagnosis: needs access Procedure: PICC Post-op Diagnosis: same as pre-op Anesthesia: local Specimen: none Complications: none Fluids: none Implant(s) used?: No Homero Chowdhury MD Feb 14, 2020 16:12
--- NOTE | 2020-02-14 16:24 | Diagnostic Imaging Report ---
Indications: Needs long-term IV access Technique: Procedure performed at bedside. Procedural timeout performed. Ultrasound confirms patent compressible left basilic vein. Total sterile technique, including sterile probe cover and sterile gel, sterile gloves, hand hygiene, hat, mask,, sterile gown, large sterile drape, and preparation with 2% chlorhexidine utilized. Local anesthesia with 1% lidocaine. Under real-time ultrasound guidance, puncture basilic vein using 21-gauge needle, passage 0.018 guidewire, exchange for 4 Frisian peel-away sheath. 4 Frisian Bard dual-lumen power PICC cut to 51 cm. It was inserted through the peel-away sheath. Peel-away sheath and guidewire removed. Catheter fixed to the skin. Both catheter ports aspirated and flushed. Patient tolerated procedure well, without immediate complication. Followup chest x-ray obtained, documents catheter tip position at the mid superior vena cava Impression: Successful bedside placement of left arm PICC under sonographic guidance, as described above.
[2020-02-14] MEDS ORDERED: NORVASC5 MG ORAL (16:27)
[2020-02-14] MEDS ORDERED: CEFAZOLIN2 GM/50 ML IV (16:27)
[2020-02-14] MEDS ORDERED: HYDRALAZINE HCL25 M1 ORAL (16:27)
--- NOTE | 2020-02-14 17:57 | NUR ---
*-*DISCHARGE PLANNING*-* PATIENT HAS BEEN ACCEPTED WITH: [facility] P: [phone] S/W TERESO, WILL SERVICE PATIENT UPON DISCHARGE.
--- NOTE | 2020-02-14 18:45 | NUR ---
NURSE NOTES: placed a call to [facility] [phone], spoke with Simon in regard to pt's home [facility] discharge. Simon says "nursing has not been confirmed." pt is made aware. He verbalized understanding. Addendum: 02/14/20 at 1847 by Nico Warren RN placed a call to [facility] [phone], spoke with Simon in regard to pt's home health discharge. Simon says "nursing has not been confirmed." pt is made aware. He verbalized understanding.
--- NOTE | 2020-02-14 19:05 | Infectious Diseases Prog Note ---
Assessment/Plan Assessment/Plan ASSESSMENT AND PLAN: 1. staph aureus bacteremia/mssa, ? source, ? endocarditis, sepsis, leukocytosis, ? CAP, ? septic emboli, low grade temps noted, covid-19 + on 3rd test, less likely CAP with + covid-19 test, mycoplasma igm negative - continue cefazolin - day # 5 post negative surveillance blood cultures, will need at least 2 weeks ancef post-neg blood cultures - dexamethasone for covid-19 pna - CT abdomen and pelvis without abscess - f/u on TTE, FERNY held secondary to + covid-19 test - may do as outpatient - monitor labs, surveillance blood cultures negative - communicated with Dr. Mata and Dr. Awan - picc line placed for IV antibiotics 2. covid-19 isolation 3. Hypertension history. Blood pressure treatment primary care team. 4. Elevated blood sugars. Blood sugar treatment per primary care team. 5. No known drug allergies. 6. Social history is positive for smoking. 7. Family history is noncontributory. 8. MAR was noted. 9. Case was discussed with RN. 10. Continue treatment per primary consultants. Subjective Constitutional: Denies: fever HEENT: Denies: congestion Respiratory: Denies: shortness of breath Cardiovascular: Denies: chest pain Gastrointestinal/Abdominal: Denies: nausea, vomiting, diarrhea Genitourinary: Denies: dysuria Neurologic: Denies: headache, weakness Psychiatric: Denies: depression Skin: Denies: rash Hematologic: Denies: bleeding Musculoskeletal: Denies: pain Allergies: Coded Allergies: No Known Allergies (Unverified , 02/05/20) Objective Last 24 Hour Vital Signs Date Time Temp Pulse Resp B/P (MAP) Pulse Ox O2 Delivery O2 Flow Rate FiO2 02/14/20 17:41 124/75 02/14/20 17:41 90 124/75 02/14/20 16:00 98.2 90 18 124/75 (91) 99 02/14/20 16:00 94 02/14/20 14:11 99.1 02/14/20 13:42 138/79 02/14/20 12:00 93 02/14/20 12:00 100.6 98 20 138/79 (98) 97 02/14/20 10:02 117/71 02/14/20 10:02 80 117/71 02/14/20 09:00 Room Air 02/14/20 08:00 101 02/14/20 08:00 98.9 80 18 117/71 (86) 97 02/14/20 05:53 138/82 02/14/20 04:00 100.0 84 18 143/86 (105) 96 02/14/20 04:00 82 02/14/20 00:00 85 02/14/20 00:00 98.1 84 18 138/82 (100) 96 02/13/20 23:45 154/99 02/13/20 21:00 Room Air 02/13/20 20:00 83 02/13/20 20:00 98.5 75 20 154/99 (117) 96 Height (Feet): 5 Height (Inches): 10.00 Weight (Pounds): 240 General Appearance: no acute distress HEENT: normocephalic, atraumatic, anicteric Respiratory/Chest: crackles/rales, rhonchi - bilaterally Cardiovascular: normal rate, regular rhythm, no gallop/murmur Abdomen: normal bowel sounds, soft, non tender, no organomegaly, non distended Genitourinary: other Extremities: no cyanosis Skin: no rash Neurologic/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 The infiltrates are typical for Covid 19. No evidence of pulmonary embolus. CT abdomen and pelvis: IMPRESSION: 1. Scattered hepatic hypodense lesions, too small to characterize on this examination without intravenous contrast. 2. Colonic diverticulosis without evidence of acute diverticulitis. 3. Scattered enlarged mesenteric lymph nodes, presumably reactive. teral pneumonia. The infiltrates are typical for Covid 19. No evidence of pulmonary embolus. Microbiology Date/Time Source Procedure Growth Status 02/10/20 06:30 Nasopharynx SARS-CoV-2 RdRp Gene Assay - Final Complete 02/09/20 07:20 Blood Blood Culture - Preliminary NO GROWTH AFTER 4 DAYS Resulted Laboratory Tests Test 02/14/20 04:00 White Blood Count 9.5 K/UL (4.8-10.8) Red Blood Count 5.51 M/UL (4.70-6.10) Hemoglobin 15.8 G/DL (14.2-18.0) Hematocrit 45.5 % (42.0-52.0) Mean Corpuscular Volume 83 FL (80-99) Mean Corpuscular Hemoglobin 28.7 PG (27.0-31.0) Mean Corpuscular Hemoglobin Concent 34.7 G/DL (32.0-36.0) Red Cell Distribution Width 14.5 % (11.6-14.8) Platelet Count 241 K/UL (150-450) Mean Platelet Volume 7.0 FL (6.5-10.1) Neutrophils (%) (Auto) 76.9 % (45.0-75.0) H Lymphocytes (%) (Auto) 13.1 % (20.0-45.0) L Monocytes (%) (Auto) 8.8 % (1.0-10.0) Eosinophils (%) (Auto) 0.1 % (0.0-3.0) Basophils (%) (Auto) 1.2 % (0.0-2.0) Sodium Level 136 MMOL/L (136-145) Potassium Level 4.1 MMOL/L (3.5-5.1) Chloride Level 101 MMOL/L (98-107) Carbon Dioxide Level 27 MMOL/L (21-32) Anion Gap 8 mmol/L (5-15) Blood Urea Nitrogen 13 mg/dL (7-18) Creatinine 0.9 MG/DL (0.55-1.30) Estimat Glomerular Filtration Rate > 60 mL/min (>60) Glucose Level 92 MG/DL (74-106) Calcium Level 8.1 MG/DL (8.5-10.1) L Current Medications Medications (Trade) Dose Ordered Sig/Dennis Route PRN Reason Start Time Stop Time Status Last Admin Dose Admin Acetaminophen (Tylenol) 650 mg Q4H PRN ORAL Temp >100.5 02/05/20 13:15 03/06/20 13:14 02/14/20 13:41 Acetaminophen (Tylenol) 650 mg Q4H PRN ORAL Pain (1-3) 02/09/20 08:30 03/10/20 08:29 02/09/20 08:25 Amlodipine Besylate (Norvasc) 5 mg BID ORAL 12/10/20 09:00 03/11/20 08:59 02/14/20 17:41 Bisacodyl (Dulcolax) 10 mg HSPRN PRN RECTAL Constipation 02/05/20 13:15 05/05/20 13:14 Cefazolin Sodium 50 ml @ 100 mls/hr Q8H IV 02/09/20 00:00 02/16/20 00:00 02/14/20 17:12 Chlorhexidine Gluconate (Marlen-Hex 2%) 1 applic DAILY@2000 TOPIC 02/14/20 20:00 05/14/20 19:59 Dextrose (Dextrose 50%) 25 ml Q30M PRN IV Hypoglycemia 02/05/20 13:15 05/05/20 13:14 Dextrose (Dextrose 50%) 50 ml Q30M PRN IV Hypoglycemia 02/05/20 13:15 05/05/20 13:14 Enoxaparin Sodium (Lovenox) 40 mg DAILY SUBQ 02/05/20 15:00 05/05/20 14:59 02/14/20 09:59 Heparin Sodium/ Sodium Chloride (Heparin 1000 units/500ml Premix) 1,000 unit ONCE PRN IV PICC PLACEMENT 02/14/20 12:00 02/15/20 23:59 Hydralazine HCl (Apresoline) 25 mg Q6HR ORAL 02/10/20 18:00 05/10/20 17:59 02/14/20 17:41 Hydromorphone HCl (Dilaudid) 0.5 mg Q4H PRN IVP For Pain 02/11/20 08:42 02/18/20 08:41 02/14/20 17:41 Lidocaine HCl (Xylocaine 1% 30ml) 30 ml ONCE PRN INJ PICC PLACEMENT 02/14/20 12:00 02/15/20 23:59 Losartan Potassium (Cozaar) 25 mg DAILY ORAL 02/14/20 09:00 03/15/20 08:59 02/14/20 10:02 Magnesium Hydroxide (Mom) 30 ml HSPRN PRN ORAL Constipation 02/05/20 13:15 03/06/20 13:14 Nitroglycerin (Ntg) 0.4 mg Q5M PRN SL Prn Chest Pain 02/05/20 06:15 03/06/20 06:14 02/12/20 17:40 Ondansetron HCl (Zofran) 4 mg Q6H PRN IVP Nausea & Vomiting 02/05/20 13:15 03/06/20 13:14 Pantoprazole (Protonix) 40 mg DAILY ORAL 02/06/20 09:00 03/07/20 08:59 02/14/20 10:01 Polyethylene Glycol (Miralax) 17 gm HSPRN PRN ORAL Constipation 02/05/20 13:15 03/06/20 13:14 Kisha Salazar MD Feb 14, 2020 19:05
--- NOTE | 2020-02-14 19:15 | Cardiology Progress Note ---
Assessment/Plan Assessment/Plan Acute covid 19 pneumonia chest pain possible M/S infiltrate bilat bacteremia drug free for 28 years his of ivda chest pain ekg neg trop neg echo normal wall motion ct finding reportedly highly suggestive of covid 19 hs of hematuria and hematochezia in fox past few day 3rd test positive for covid after initial 2 were neg venus cancelled at this time d/w iod and pulm pt sched to go bijan he will fu with me for the cp evaluation after his covid sx resolved and quarantine is removed Subjective Cardiovascular: Denies: chest pain, lightheadedness, palpitations Respiratory: Denies: shortness of breath Gastrointestinal/Abdominal: Denies: abdominal pain Genitourinary: Denies: burning Subjective pt now in covid 19 isolation , walkiin in his room and up in th chair Objective Last 24 Hour Vital Signs Date Time Temp Pulse Resp B/P (MAP) Pulse Ox O2 Delivery O2 Flow Rate FiO2 02/14/20 17:41 124/75 02/14/20 17:41 90 124/75 02/14/20 16:00 98.2 90 18 124/75 (91) 99 02/14/20 16:00 94 02/14/20 14:11 99.1 02/14/20 13:42 138/79 02/14/20 12:00 93 02/14/20 12:00 100.6 98 20 138/79 (98) 97 02/14/20 10:02 117/71 02/14/20 10:02 80 117/71 02/14/20 09:00 Room Air 02/14/20 08:00 101 02/14/20 08:00 98.9 80 18 117/71 (86) 97 02/14/20 05:53 138/82 02/14/20 04:00 100.0 84 18 143/86 (105) 96 02/14/20 04:00 82 02/14/20 00:00 85 02/14/20 00:00 98.1 84 18 138/82 (100) 96 02/13/20 23:45 154/99 02/13/20 21:00 Room Air 02/13/20 20:00 83 02/13/20 20:00 98.5 75 20 154/99 (117) 96 Intake and Output 02/13/20 02/14/20 19:00 07:00 Intake Total 600 ml 1000 ml Output Total 1200 ml 900 ml Balance -600 ml 100 ml Intake Oral 600 ml 1000 ml Output Urine Total 1200 ml 900 ml Laboratory Tests Test 02/14/20 04:00 White Blood Count 9.5 K/UL (4.8-10.8) Red Blood Count 5.51 M/UL (4.70-6.10) Hemoglobin 15.8 G/DL (14.2-18.0) Hematocrit 45.5 % (42.0-52.0) Mean Corpuscular Volume 83 FL (80-99) Mean Corpuscular Hemoglobin 28.7 PG (27.0-31.0) Mean Corpuscular Hemoglobin Concent 34.7 G/DL (32.0-36.0) Red Cell Distribution Width 14.5 % (11.6-14.8) Platelet Count 241 K/UL (150-450) Mean Platelet Volume 7.0 FL (6.5-10.1) Neutrophils (%) (Auto) 76.9 % (45.0-75.0) H Lymphocytes (%) (Auto) 13.1 % (20.0-45.0) L Monocytes (%) (Auto) 8.8 % (1.0-10.0) Eosinophils (%) (Auto) 0.1 % (0.0-3.0) Basophils (%) (Auto) 1.2 % (0.0-2.0) Sodium Level 136 MMOL/L (136-145) Potassium Level 4.1 MMOL/L (3.5-5.1) Chloride Level 101 MMOL/L (98-107) Carbon Dioxide Level 27 MMOL/L (21-32) Anion Gap 8 mmol/L (5-15) Blood Urea Nitrogen 13 mg/dL (7-18) Creatinine 0.9 MG/DL (0.55-1.30) Estimat Glomerular Filtration Rate > 60 mL/min (>60) Glucose Level 92 MG/DL (74-106) Calcium Level 8.1 MG/DL (8.5-10.1) L Objective pt in covid 19 isoaltion with acute infection per pulm note General Appearance: WD/WN, no acute distress HEENT: normocephalic, atraumatic Respiratory: chest wall non-tender, lungs clear Cardiovascular: normal rate, regular rhythm Abdomen: soft, non tender, other - obese Manan Awan MD Feb 14, 2020 19:15
--- NOTE | 2020-02-14 19:20 | NUR ---
NURSE NOTES: Received patient from PRIYANKA Walsh. AOx3, able to verbalize needs. On room air, saturating well. No complaints of pain or discomfort at this time. IV site flushed and asymptomatic. Newly placed double lumen PICC line today, flushed. Not in acute distress. Bed in lowest position, brakes engaged and bed alarm on. Bed rails raised x3. Call light placed within reach. Will continue to monitor.
--- NOTE | 2020-02-14 19:20 | NUR ---
GROOVING LATHE TENDER NOTES SPOKE WITH [facility] FROM [facility], PT ACCEPTED. CURRENTLY LOOKING FOR A AGENCY THAT WILL SERVICE THE PT DUE TO COVID. WILL CONTINUE TO DCP.
--- NOTE | 2020-02-14 19:24 | NUR ---
HAND-OFF: Report given to SAMSON/PRIYANKA.
[2020-02-14 20:00] VITALS: BP 152/90
[2020-02-14] MEDS: Dyna-Hex 2% Top Sol 2oz TOPIC SCH (20:00)
[2020-02-15] VITALS: BP 139/82
[2020-02-15] MEDS: ceFAZolin 2gm/50ml Premix 50 ML IV SCH ×3 (00:14→15:43)
[2020-02-15] MEDS: HydrALAZINE 25mg tab ORAL SCH ×4 (00:14→17:55)
[2020-02-15] MEDS: Hydromorphone 0.5mg/0.5ml inj IVP PRN ×4 (03:41→20:47)
[2020-02-15 04:00] VITALS: BP 132/88
--- NOTE | 2020-02-15 07:10 | NUR ---
NURSE NOTES: Received patient report from PRIYANKA Mckeon. Pt is AO x3 and able to make needs known.On room air, saturating well. No pain or discomfort noted at this time. Not in acute distress. Bed in lowest position, brakes engaged and bed alarm on. Bed rails raised x3. Call light placed within reach. Will continue to monitor.
--- NOTE | 2020-02-15 07:40 | NUR ---
NURSE HAND-OFF REPORT: Important Events on Shift:[IV atbs given during the shift. Order for discharge today. Double lumen PICC line flushed] Patient Status: [Full code] Diet: [Cardiac diet] Pending Orders: [] Pending Results/Labs:[] Pending MD notification:[] Latest Vital Signs: Temperature 98.2 , Pulse 87 , B/P 132 /88 , Respiratory Rate 20 , O2 SAT 97 , Room Air, O2 Flow Rate 2.0 . Vital Sign Comment: [] EKG Rhythm: Sinus Rhythm Rhythm change?: N MD Notified?: N -Dr. Emperatriz INTERIANO Response: Message left await call Latest Hassan Fall Score: 20 Fall Risk: Low Risk Safety Measures: Call light Within Reach, Bed Alarm Zone 2, Side Rails Side Rails x2, Bed position Low and Locked. Fall Precautions: Yellow Socks Patient Fall Education Report given to [PRIYANKA Looney].
[2020-02-15 08:00] VITALS: BP 145/96
[2020-02-15] MEDS: Losartan 25mg tab ORAL SCH (09:15)
[2020-02-15] MEDS: Enoxaparin 40mg Inj SUBQ SCH (09:16)
--- NOTE | 2020-02-15 10:51 | Pulmonology Progress Note ---
Subjective ROS Limited/Unobtainable: No Interval Events: none major Constitutional: Denies: fever HEENT: Repors: no symptoms Respiratory: Reports: dry cough Cardiovascular: Denies: no symptoms, chest pain, palpitations, other Gastrointestinal/Abdominal: Denies: nausea, vomiting, diarrhea Psychiatric: Denies: depression Skin: Denies: rash Musculoskeletal: Denies: pain Allergies: Coded Allergies: No Known Allergies (Unverified , 02/05/20) Subjective pt requesting to be off laxatives saying he can have bowel movements without any problem Objective Last 24 Hour Vital Signs Date Time Temp Pulse Resp B/P (MAP) Pulse Ox O2 Delivery O2 Flow Rate FiO2 02/15/20 09:15 128/82 02/15/20 09:15 91 128/82 02/15/20 05:11 132/88 02/15/20 04:11 98.2 02/15/20 04:00 98.2 88 20 132/88 (103) 97 02/15/20 04:00 87 02/15/20 00:14 139/52 02/15/20 00:00 83 02/15/20 00:00 98.1 84 18 139/82 (101) 98 02/14/20 22:50 98.2 02/14/20 21:00 Room Air 02/14/20 20:00 94 02/14/20 20:00 97.9 78 18 152/90 (110) 97 02/14/20 17:41 124/75 02/14/20 17:41 90 124/75 02/14/20 16:00 98.2 90 18 124/75 (91) 99 02/14/20 16:00 94 02/14/20 14:11 99.1 02/14/20 13:42 138/79 02/14/20 12:00 93 02/14/20 12:00 100.6 98 20 138/79 (98) 97 Intake and Output 02/14/20 02/15/20 19:00 07:00 Intake Total 800 ml 500 ml Output Total 950 ml Balance -150 ml 500 ml Intake Oral 800 ml 500 ml Output Urine Total 950 ml # Voids 5 3 # Bowel Movements 1 Objective 02/15/2020 no major change 02/14/2020 saturating well on RAD; NAD 02/13/2020 pt asleep; saturating well on RA 02/12/2020 sitting up in a chair; saturating well on RA 02/11/2020 back on isolation due to COVID-19 positive status again; currently being worked up for positive blood culture 02/09/2020 off isolation; saturating well on RA 02/08/2020 feeling better; COVID-19 PCR neg 02/07/2020 reports feeling better; COVID-19 PCR pending 02/06/2020 pt laying in bed; reports feeling better General Appearance: WD/WN, no acute distress HEENT: normocephalic, atraumatic Respiratory: chest wall non-tender, lungs clear Cardiovascular: normal rate, regular rhythm Abdomen: normal bowel sounds, soft, non tender, other - obese Current Medications Medications (Trade) Dose Ordered Sig/Dennis Route PRN Reason Start Time Stop Time Status Last Admin Dose Admin Acetaminophen (Tylenol) 650 mg Q4H PRN ORAL Temp >100.5 02/05/20 13:15 03/06/20 13:14 02/14/20 13:41 Acetaminophen (Tylenol) 650 mg Q4H PRN ORAL Pain (1-3) 02/09/20 08:30 03/10/20 08:29 02/09/20 08:25 Amlodipine Besylate (Norvasc) 5 mg BID ORAL 02/10/20 09:00 03/11/20 08:59 02/15/20 09:15 Bisacodyl (Dulcolax) 10 mg HSPRN PRN RECTAL Constipation 02/05/20 13:15 05/05/20 13:14 Cefazolin Sodium 50 ml @ 100 mls/hr Q8H IV 02/09/20 00:00 02/16/20 00:00 02/15/20 09:14 Chlorhexidine Gluconate (Marlen-Hex 2%) 1 applic DAILY@2000 TOPIC 02/14/20 20:00 05/14/20 19:59 02/14/20 20:00 Dextrose (Dextrose 50%) 25 ml Q30M PRN IV Hypoglycemia 02/05/20 13:15 05/05/20 13:14 Dextrose (Dextrose 50%) 50 ml Q30M PRN IV Hypoglycemia 02/05/20 13:15 05/05/20 13:14 Enoxaparin Sodium (Lovenox) 40 mg DAILY SUBQ 02/05/20 15:00 05/05/20 14:59 02/15/20 09:16 Heparin Sodium/ Sodium Chloride (Heparin 1000 units/500ml Premix) 1,000 unit ONCE PRN IV PICC PLACEMENT 02/14/20 12:00 02/15/20 23:59 Hydralazine HCl (Apresoline) 25 mg Q6HR ORAL 02/10/20 18:00 05/10/20 17:59 02/15/20 05:11 Hydromorphone HCl (Dilaudid) 0.5 mg Q4H PRN IVP For Pain 02/11/20 08:42 02/18/20 08:41 02/15/20 09:50 Lidocaine HCl (Xylocaine 1% 30ml) 30 ml ONCE PRN INJ PICC PLACEMENT 02/14/20 12:00 02/15/20 23:59 Losartan Potassium (Cozaar) 25 mg DAILY ORAL 02/14/20 09:00 03/15/20 08:59 02/15/20 09:15 Magnesium Hydroxide (Mom) 30 ml HSPRN PRN ORAL Constipation 02/05/20 13:15 03/06/20 13:14 Nitroglycerin (Ntg) 0.4 mg Q5M PRN SL Prn Chest Pain 02/05/20 06:15 03/06/20 06:14 02/12/20 17:40 Ondansetron HCl (Zofran) 4 mg Q6H PRN IVP Nausea & Vomiting 02/05/20 13:15 03/06/20 13:14 Pantoprazole (Protonix) 40 mg DAILY ORAL 02/06/20 09:00 03/07/20 08:59 02/15/20 09:14 Polyethylene Glycol (Miralax) 17 gm HSPRN PRN ORAL Constipation 02/05/20 13:15 03/06/20 13:14 Assessment/Plan Assessment/Plan 1. High suspicion for COVID-19 pneumonia. - on Decadron; now oral - last COVID-19 test positive after two negative tests - CTA 02/05/2020 ground-glass and consolidating infiltrates in the dependent portions of both lower lobes and to lesser degree the upper lobes consistent with bilateral pneumonia. No evidence of pulmonary embolus. - Well saturated on RA - Mycoplasma pneumoniae IgG 273; M. pneumoniae IgM titer within normal limits 2. Initial negative rapid COVID-19 gene assay. 3. Smoker. 4. DVT ppx - on lovenox 5. Hypertension - on hydralazine, and norvasc - Switched to cardiac diet 6. Blood culture positive for gram positive cocci staph aureus - on Abx - CT abd/pelvis showed no abscess per ID - TTE/ FERNY held off due to COVID-19 status - PICC line in place will be discharged home/hotel with home health for ancef via PICC line dc pending - case reviewer looking for home health agency We will follow carefully. The care for this patient was discussed with my supervising physician. Time spent for this case was approximately 31 minutes. The patient was seen and examined at bedside and all new and available data was reviewed in the patients chart. I agree with the above findings, impression, and plan. (Patient was seen earlier today. Signature timestamp does not reflect patient encounter time) Edilson Peacock MD Feb 15, 2020 10:51 John Mata MD Feb 15, 2020 18:10
[2020-02-15 12:00] VITALS: BP 138/81
[2020-02-15 16:00] VITALS: BP 140/80
--- NOTE | 2020-02-15 17:23 | NUR ---
*-*DISCHARGE PLANNING*-* PATIENT HAS BEEN REFERRED TO: [facility] P: [phone] S/W QUINN, CANNOT SERVICE PATIENT DUE TO INSURANCE [facility] P: [phone] S/W ANTOINE, NO ONE IS ABLE TO COME OUT AND SERVICE THIS PATIENT [facility] P: [phone] S/W KLARISSA, CALL BACK TOMORROW, INTAKE NOT AVAILABLE [facility] P: [phone] NO ANSWER
--- NOTE | 2020-02-15 19:15 | NUR ---
NURSE HAND-OFF REPORT: Important Events on Shift:na Patient Status: Stable Diet: Cardiac Pending Orders: na Pending Results/Labs:na Pending notification:na Latest Vital Signs: Temperature 97.5 , Pulse 91 , B/P 140 /80 , Respiratory Rate 20 , O2 SAT 97 , Room Air, O2 Flow Rate 2.0 . Vital Sign Comment: Stable EKG Rhythm: Sinus Rhythm Rhythm change?: N MD Notified?: N -Dr. Emperatriz INTERIANO Response: Message left await call Latest Hassan Fall Score: 20 Fall Risk: Low Risk Safety Measures: Call light Within Reach, Bed Alarm Zone 2, Side Rails Side Rails x2, Bed position Low and Locked. Fall Precautions: Yellow Socks Patient Fall Education Report given to PRIYANKA Gillette.
--- NOTE | 2020-02-15 19:16 | NUR ---
NURSE NOTES: Received report from PRIYANKA Estrada; in no acute distress; AOX 4; able to verbalize needs; encouraged pt to use call light when needing to go to the bathroom if IV med is infusing to prevent dante g off IV site and falls; with IV site on L forearm 20 gauge and PICC line on Left upper arm saline locked; intact and patent; call light within reach; side rails x 3; bed locked and in low position; will continue to monitor.
[2020-02-15 20:00] VITALS: BP 157/91
[2020-02-15] MEDS: Dyna-Hex 2% Top Sol 2oz TOPIC SCH (20:46)
[2020-02-16] VITALS: BP 124/84
[2020-02-16] MEDS: ceFAZolin 2gm/50ml Premix 50 ML IV SCH ×3 (00:16→15:08)
[2020-02-16] MEDS: HydrALAZINE 25mg tab ORAL SCH ×4 (00:18→18:00)
[2020-02-16] MEDS: Hydromorphone 0.5mg/0.5ml inj IVP PRN ×4 (01:47→19:56)
[2020-02-16 04:00] VITALS: BP 121/82
--- NOTE | 2020-02-16 07:30 | NUR ---
NURSE HAND-OFF REPORT: Important Events on Shift: Given Dilaudid IVP @ 0147 for 10/10 L arm pain; 2/10 pain level after 1 hr Patient Status: AOX4; asleep most of the night Diet: cardiac Pending Orders: none Pending Results/Labs: none Pending MD notification: none Latest Vital Signs: Temperature 99.5 , Pulse 80 , B/P 124 /84 , Respiratory Rate 20 , O2 SAT 92 , Room Air, O2 Flow Rate 2.0 . Vital Sign Comment: stable EKG Rhythm: Sinus Rhythm Rhythm change?: N MD Notified?: N Response: n/a Latest Hassan Fall Score: 20 Fall Risk: Low Risk Safety Measures: Call light Within Reach, Bed Alarm Zone 1, Side Rails Side Rails x2, Bed position Low and Locked. Fall Precautions: Yellow Socks Patient Fall Education Report given to PRIYANKA Licea.
--- NOTE | 2020-02-16 07:30 | NUR ---
NURSE NOTES: pt in bed resting. He is not complaining of pain at this time. Pt on quality assurance monitor chassis no signs of cardiac or respiratory distress. Bed locked and in lowest position. Call light within reach. Pt has picc line. will continue to monitor.
--- NOTE | 2020-02-16 07:57 | NUR ---
CASE MANAGEMENT:REVIEW 02/16/20 SI: COVID PNEUMONIA. BACTEREMIA 99.5 80 20 121/82 92% ON RA IS: IV ANCEF Q8HRS HYDRALAZINE PO Q6HRS NORVASC PO BID COZAAR PO QD PROTONIX PO QD LOVENOX SQ QD IV DILAUDID Q4HRS PRN : TELEMETRY STATUS DCP: FROM HOTEL PLAN: DISCHARGE PLAN IS FOR HOME/HOTEL FOR 2 WEEKS OF IV ABX IV EDDIE WILL PROVIDED ANTIBIOTICS BUT HAVING DIFFICULTY FINDING HOME HEALTH AGENCY WILLING TO SERVICE A COVID POSITIVE PATIENT
[2020-02-16 08:00] VITALS: BP 131/85
[2020-02-16] MEDS: Enoxaparin 40mg Inj SUBQ SCH (09:31)
[2020-02-16] MEDS: Losartan 25mg tab ORAL SCH (09:37)
[2020-02-16 12:00] VITALS: BP 135/85
--- NOTE | 2020-02-16 12:28 | NUR ---
RD ASSESSMENT & RECOMMENDATIONS SEE CARE ACTIVITY FOR COMPLETE ASSESSMENT DAILY ESTIMATED NEEDS: Needs based on Pulmonary, cardiac 87kg abw 23-28 kcals/kg 5678-9450 total kcals 1-1.5 g protein/kg 87-131 g total protein 25-30 mL/kg 5324-8219 total fluid mLs NUTRITION DIAGNOSIS: Decreased sodium and fat needs r/t HTN and obesity as evidenced by pt w/ cardiac history, elev BP (159/98-> now improved, on BP lowering meds), BMI >30, obese per guidelines. CURRENT DIET: Regular PO DIET RECOMMENDATIONS: CARDIAC DIET ADDITIONAL RECOMMENDATIONS: 1) Maintain calibrated bedscale wts; obtain a standing wt as able 2) Obtain HgA1C for eval 3) Added proteins protions to trays 4) Monitor PO intake: decreased intake on 02/14 per EMR
--- NOTE | 2020-02-16 14:10 | Pulmonology Progress Note ---
Subjective ROS Limited/Unobtainable: No Interval Events: none major Constitutional: Denies: fever HEENT: Repors: no symptoms Respiratory: Reports: dry cough Cardiovascular: Denies: no symptoms, chest pain, palpitations, other Gastrointestinal/Abdominal: Denies: nausea, vomiting, diarrhea Psychiatric: Denies: depression Skin: Denies: rash Musculoskeletal: Denies: pain Allergies: Coded Allergies: No Known Allergies (Unverified , 02/05/20) Subjective pt requesting to be off laxatives saying he can have bowel movements without any problem Objective Last 24 Hour Vital Signs Date Time Temp Pulse Resp B/P (MAP) Pulse Ox O2 Delivery O2 Flow Rate FiO2 02/16/20 12:39 135/85 02/16/20 12:00 89 02/16/20 09:38 83 131/85 02/16/20 09:37 131/85 02/16/20 08:00 78 02/16/20 06:05 124/84 02/16/20 04:00 81 02/16/20 04:00 99.5 80 20 121/82 (95) 92 02/16/20 00:18 124/84 02/16/20 00:00 96 02/16/20 00:00 99.7 92 20 124/84 (97) 97 02/15/20 21:00 Room Air 02/15/20 20:00 94 02/15/20 20:00 100.0 105 20 157/91 (113) 92 02/15/20 17:55 140/80 02/15/20 17:55 91 140/80 02/15/20 16:00 94 02/15/20 16:00 97.5 91 20 140/80 (100) 97 Intake and Output 02/15/20 02/16/20 19:00 07:00 Intake Total 900 ml 200 ml Output Total 350 ml Balance 900 ml -150 ml Intake Oral 800 ml 200 ml IV Total 100 ml Output Urine Total 350 ml # Voids 3 Objective 02/16/2020 no change 02/15/2020 no major change 02/14/2020 saturating well on RAD; NAD 02/13/2020 pt asleep; saturating well on RA 02/12/2020 sitting up in a chair; saturating well on RA 02/11/2020 back on isolation due to COVID-19 positive status again; currently being worked up for positive blood culture 02/09/2020 off isolation; saturating well on RA 02/08/2020 feeling better; COVID-19 PCR neg 02/07/2020 reports feeling better; COVID-19 PCR pending 02/06/2020 pt laying in bed; reports feeling better General Appearance: WD/WN, no acute distress HEENT: normocephalic, atraumatic Respiratory: chest wall non-tender, lungs clear Cardiovascular: normal rate, regular rhythm Abdomen: normal bowel sounds, soft, non tender, other - obese Current Medications Medications (Trade) Dose Ordered Sig/Dennis Route PRN Reason Start Time Stop Time Status Last Admin Dose Admin Acetaminophen (Tylenol) 650 mg Q4H PRN ORAL Temp >100.5 02/05/20 13:15 03/06/20 13:14 02/14/20 13:41 Acetaminophen (Tylenol) 650 mg Q4H PRN ORAL Pain (1-3) 02/09/20 08:30 03/10/20 08:29 02/09/20 08:25 Amlodipine Besylate (Norvasc) 5 mg BID ORAL 02/10/20 09:00 03/11/20 08:59 02/16/20 09:38 Bisacodyl (Dulcolax) 10 mg HSPRN PRN RECTAL Constipation 02/05/20 13:15 05/05/20 13:14 Cefazolin Sodium 50 ml @ 100 mls/hr Q8H IV 02/09/20 00:00 02/22/20 00:00 02/16/20 09:38 Chlorhexidine Gluconate (Marlen-Hex 2%) 1 applic DAILY@2000 TOPIC 02/14/20 20:00 05/14/20 19:59 02/15/20 20:46 Dextrose (Dextrose 50%) 25 ml Q30M PRN IV Hypoglycemia 02/05/20 13:15 05/05/20 13:14 Dextrose (Dextrose 50%) 50 ml Q30M PRN IV Hypoglycemia 02/05/20 13:15 05/05/20 13:14 Enoxaparin Sodium (Lovenox) 40 mg DAILY SUBQ 02/05/20 15:00 05/05/20 14:59 02/16/20 09:31 Hydralazine HCl (Apresoline) 25 mg Q6HR ORAL 02/10/20 18:00 05/10/20 17:59 02/16/20 12:39 Hydromorphone HCl (Dilaudid) 0.5 mg Q4H PRN IVP For Pain 02/11/20 08:42 02/18/20 08:41 02/16/20 09:29 Losartan Potassium (Cozaar) 25 mg DAILY ORAL 02/14/20 09:00 03/15/20 08:59 02/16/20 09:37 Magnesium Hydroxide (Mom) 30 ml HSPRN PRN ORAL Constipation 02/05/20 13:15 03/06/20 13:14 Nitroglycerin (Ntg) 0.4 mg Q5M PRN SL Prn Chest Pain 02/05/20 06:15 03/06/20 06:14 02/12/20 17:40 Ondansetron HCl (Zofran) 4 mg Q6H PRN IVP Nausea & Vomiting 02/05/20 13:15 03/06/20 13:14 Pantoprazole (Protonix) 40 mg DAILY ORAL 02/06/20 09:00 03/07/20 08:59 02/16/20 09:38 Polyethylene Glycol (Miralax) 17 gm HSPRN PRN ORAL Constipation 02/05/20 13:15 03/06/20 13:14 Assessment/Plan Assessment/Plan Assessment/Plan 1. High suspicion for COVID-19 pneumonia. - on Decadron; now oral - last COVID-19 test positive after two negative tests - CTA 02/05/2020 ground-glass and consolidating infiltrates in the dependent portions of both lower lobes and to lesser degree the upper lobes consistent with bilateral pneumonia. No evidence of pulmonary embolus. - Well saturated on RA - Mycoplasma pneumoniae IgG 273; M. pneumoniae IgM titer within normal limits 2. Initial negative rapid COVID-19 gene assay. 3. Smoker. 4. DVT ppx - on lovenox 5. Hypertension - on hydralazine, and norvasc - Switched to cardiac diet 6. Blood culture positive for gram positive cocci staph aureus - on Abx - CT abd/pelvis showed no abscess per ID - TTE/ FERNY held off due to COVID-19 status - PICC line in place will be discharged home/hotel with home health for ancef via PICC line dc pending - disease case manager looking for home health agency We will follow carefully. The care for this patient was discussed with my supervising physician. Time spent for this case was approximately 31 minutes. The patient was seen and examined at bedside and all new and available data was reviewed in the patients chart. I agree with the above findings, impression, and plan. (Patient was seen earlier today. Signature timestamp does not reflect patient encounter time) Edilson Peacock MD Feb 16, 2020 14:10 John Mata MD Feb 16, 2020 17:34
[2020-02-16] MEDS: guaiFENesin /DM 10ml syrup ORAL PRN ×2 (15:09→22:37)
[2020-02-16 16:00] VITALS: BP 132/82
--- NOTE | 2020-02-16 16:22 | NUR ---
*-*DISCHARGE PLANNING*-* PATIENT HAS BEEN REFERRED TO: [facility] P : [phone] S/W NICK, WILL CALL BACK WHEN INTAKE RETURNS.
--- NOTE | 2020-02-16 17:46 | NUR ---
*-*DISCHARGE PLANNING*-* PATIENT HAS BEEN REFERRED TO: [facility] P : [phone] PLACED ANOTHER CALL AT 4:45PM AND 5PM NO ANSWER
--- NOTE | 2020-02-16 19:26 | NUR ---
NURSE HAND-OFF REPORT: Important Events on Shift:[]pt had fever 101.8 tylenol given, he feels a lot better. Patient Status: []full code Diet: []Cardiac Pending Orders: [] Pending Results/Labs:[] Pending MD notification:[] Latest Vital Signs: Temperature 99.0 , Pulse 91 , B/P 132 /82 , Respiratory Rate 18 , O2 SAT 92 , Room Air, O2 Flow Rate 2.0 . Vital Sign Comment: [] EKG Rhythm: Sinus Rhythm Rhythm change?: N Notified?: N -Dr. Emperatriz INTERIANO Response: Message left await call Latest Hassan Fall Score: 20 Fall Risk: Low Risk Safety Measures: Call light Within Reach, Bed Alarm Zone 1, Side Rails Side Rails x2, Bed position Low and Locked. Fall Precautions: y Yellow Socks y Patient Fall Education y Report given to []. Marcio Claudio/PRIYANKA
--- NOTE | 2020-02-16 19:30 | NUR ---
NURSE NOTES: Patient received from PRIYANKA Licea. Patient is awake, alert and oriented x 4. Patient is talkative and able to verbalize her needs. Patient is complaining of chest pain and asking for medication, will tend his needs. Patient is able to ambulate with assist. Patient is in room air, with no signs of acute respiratory distress noted. Patient has a urinal in bed. Patient has a left 20 gauge on his forearm, patent and flushed. Bed is in the lowest position and locked, call light within reach. Will continue to monitor.
[2020-02-16] MEDS: Dyna-Hex 2% Top Sol 2oz TOPIC SCH (19:55)
[2020-02-16 20:00] VITALS: BP 150/90
--- NOTE | 2020-02-16 20:36 | Infectious Diseases Prog Note ---
Assessment/Plan Assessment/Plan ASSESSMENT AND PLAN: 1. staph aureus bacteremia/mssa, ? source, ? endocarditis, sepsis, leukocytosis, ? CAP, ? septic emboli, low grade temps noted, covid-19 + on 3rd test, less likely CAP with + covid-19 test, mycoplasma igm negative - continue cefazolin - day # 7 post negative surveillance blood cultures, will need at least 2 weeks ancef post-neg blood cultures - s/p dexamethasone for covid-19 pna - CT abdomen and pelvis without abscess - f/u on TTE, FERNY held secondary to + covid-19 test - may do as outpatient - monitor labs, surveillance blood cultures negative - communicated with Dr. Mata and Dr. Awan - picc line placed for IV antibiotics 2. covid-19 isolation 3. Hypertension history. Blood pressure treatment primary care team. 4. Elevated blood sugars. Blood sugar treatment per primary care team. 5. No known drug allergies. 6. Social history is positive for smoking. 7. Family history is noncontributory. 8. MAR was noted. 9. Case was discussed with RN. 10. Continue treatment per primary consultants. Subjective Constitutional: Denies: fever HEENT: Denies: congestion Respiratory: Denies: shortness of breath Cardiovascular: Denies: chest pain Gastrointestinal/Abdominal: Denies: nausea, vomiting, diarrhea Genitourinary: Denies: dysuria, hematuria Neurologic: Denies: headache Psychiatric: Denies: depression Skin: Denies: rash Hematologic: Denies: bleeding Musculoskeletal: Denies: pain Allergies: Coded Allergies: No Known Allergies (Unverified , 02/05/20) Objective Last 24 Hour Vital Signs Date Time Temp Pulse Resp B/P (MAP) Pulse Ox O2 Delivery O2 Flow Rate FiO2 02/16/20 18:00 132/82 02/16/20 18:00 91 132/82 02/16/20 16:00 95 02/16/20 16:00 99.0 91 18 132/82 (99) 92 02/16/20 15:40 99.0 02/16/20 12:39 135/85 02/16/20 12:00 89 02/16/20 12:00 100.2 91 22 135/85 (102) 96 02/16/20 09:38 83 131/85 12/16/20 09:37 131/85 02/16/20 09:00 Room Air 02/16/20 08:00 98.6 80 20 131/85 (100) 98 02/16/20 08:00 78 02/16/20 06:05 124/84 02/16/20 04:00 81 02/16/20 04:00 99.5 80 20 121/82 (95) 92 02/16/20 00:18 124/84 02/16/20 00:00 96 02/16/20 00:00 99.7 92 20 124/84 (97) 97 02/15/20 21:00 Room Air Height (Feet): 5 Height (Inches): 10.00 Weight (Pounds): 240 General Appearance: no acute distress HEENT: normocephalic, atraumatic, anicteric, mucous membranes moist Respiratory/Chest: lungs clear, normal breath sounds, no respiratory distress, no accessory muscle use Cardiovascular: normal rate, regular rhythm, no gallop/murmur, no JVD Abdomen: normal bowel sounds, soft, non tender, no organomegaly, non distended, tender - no joseph Genitourinary: other - no joseph Extremities: no cyanosis Skin: no rash 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 The infiltrates are typical for Covid 19. No evidence of pulmonary embolus. CT abdomen and pelvis: IMPRESSION: 1. Scattered hepatic hypodense lesions, too small to characterize on this examination without intravenous contrast. 2. Colonic diverticulosis without evidence of acute diverticulitis. 3. Scattered enlarged mesenteric lymph nodes, presumably reactive. teral pneumonia. The infiltrates are typical for Covid 19. No evidence of pulmonary embolus. Microbiology Date/Time Source Procedure Growth Status 02/10/20 06:30 Nasopharynx SARS-CoV-2 RdRp Gene Assay - Final Complete 02/09/20 07:20 Blood Blood Culture - Final NO GROWTH AFTER 5 DAYS Complete Microbiology Date/Time Source Procedure Growth Status 02/10/20 06:30 Nasopharynx SARS-CoV-2 RdRp Gene Assay - Final Complete 02/09/20 07:20 Blood Blood Culture - Final NO GROWTH AFTER 5 DAYS Complete Labs Test 02/14/20 04:00 White Blood Count 9.5 K/UL (4.8-10.8) Red Blood Count 5.51 M/UL (4.70-6.10) Hemoglobin 15.8 G/DL (14.2-18.0) Hematocrit 45.5 % (42.0-52.0) Mean Corpuscular Volume 83 FL (80-99) Mean Corpuscular Hemoglobin 28.7 PG (27.0-31.0) Mean Corpuscular Hemoglobin Concent 34.7 G/DL (32.0-36.0) Red Cell Distribution Width 14.5 % (11.6-14.8) Platelet Count 241 K/UL (150-450) Mean Platelet Volume 7.0 FL (6.5-10.1) Neutrophils (%) (Auto) 76.9 % (45.0-75.0) Lymphocytes (%) (Auto) 13.1 % (20.0-45.0) Monocytes (%) (Auto) 8.8 % (1.0-10.0) Eosinophils (%) (Auto) 0.1 % (0.0-3.0) Basophils (%) (Auto) 1.2 % (0.0-2.0) Sodium Level 136 MMOL/L (136-145) Potassium Level 4.1 MMOL/L (3.5-5.1) Chloride Level 101 MMOL/L (98-107) Carbon Dioxide Level 27 MMOL/L (21-32) Anion Gap 8 mmol/L (5-15) Blood Urea Nitrogen 13 mg/dL (7-18) Creatinine 0.9 MG/DL (0.55-1.30) Estimat Glomerular Filtration Rate > 60 mL/min (>60) Glucose Level 92 MG/DL (74-106) Calcium Level 8.1 MG/DL (8.5-10.1) Current Medications Medications (Trade) Dose Ordered Sig/Dennis Route PRN Reason Start Time Stop Time Status Last Admin Dose Admin Acetaminophen (Tylenol) 650 mg Q4H PRN ORAL Temp >100.5 02/05/20 13:15 03/06/20 13:14 02/16/20 15:10 Acetaminophen (Tylenol) 650 mg Q4H PRN ORAL Pain (1-3) 02/09/20 08:30 03/10/20 08:29 02/09/20 08:25 Amlodipine Besylate (Norvasc) 5 mg BID ORAL 02/10/20 09:00 03/11/20 08:59 02/16/20 18:00 Bisacodyl (Dulcolax) 10 mg HSPRN PRN RECTAL Constipation 02/05/20 13:15 05/05/20 13:14 Cefazolin Sodium 50 ml @ 100 mls/hr Q8H IV 02/09/20 00:00 02/22/20 00:00 02/16/20 15:08 Chlorhexidine Gluconate (Marlen-Hex 2%) 1 applic DAILY@2000 TOPIC 02/14/20 20:00 05/14/20 19:59 02/16/20 19:55 Dextrose (Dextrose 50%) 25 ml Q30M PRN IV Hypoglycemia 02/05/20 13:15 05/05/20 13:14 Dextrose (Dextrose 50%) 50 ml Q30M PRN IV Hypoglycemia 02/05/20 13:15 05/05/20 13:14 Enoxaparin Sodium (Lovenox) 40 mg DAILY SUBQ 02/05/20 15:00 05/05/20 14:59 02/16/20 09:31 Guaifenesin/ Dextromethorphan (Robitussin DM Syrup) 10 ml Q6H PRN ORAL For Cough 02/16/20 14:15 05/16/20 14:14 02/16/20 15:09 Hydralazine HCl (Apresoline) 25 mg Q6HR ORAL 02/10/20 18:00 05/10/20 17:59 02/16/20 18:00 Hydromorphone HCl (Dilaudid) 0.5 mg Q4H PRN IVP For Pain 02/11/20 08:42 02/18/20 08:41 02/16/20 19:56 Losartan Potassium (Cozaar) 25 mg DAILY ORAL 02/14/20 09:00 03/15/20 08:59 02/16/20 09:37 Magnesium Hydroxide (Mom) 30 ml HSPRN PRN ORAL Constipation 02/05/20 13:15 03/06/20 13:14 Nitroglycerin (Ntg) 0.4 mg Q5M PRN SL Prn Chest Pain 02/05/20 06:15 03/06/20 06:14 02/12/20 17:40 Ondansetron HCl (Zofran) 4 mg Q6H PRN IVP Nausea & Vomiting 02/05/20 13:15 03/06/20 13:14 Pantoprazole (Protonix) 40 mg DAILY ORAL 02/06/20 09:00 03/07/20 08:59 02/16/20 09:38 Polyethylene Glycol (Miralax) 17 gm HSPRN PRN ORAL Constipation 02/05/20 13:15 03/06/20 13:14 Kisha Salazar MD Feb 16, 2020 20:36
[2020-02-17] VITALS: BP 130/84
[2020-02-17] MEDS: HydrALAZINE 25mg tab ORAL SCH ×4 (01:01→17:58)
[2020-02-17] MEDS: ceFAZolin 2gm/50ml Premix 50 ML IV SCH ×3 (01:01→16:09)
[2020-02-17] MEDS: Hydromorphone 0.5mg/0.5ml inj IVP PRN ×5 (01:27→20:23)
[2020-02-17 04:00] VITALS: BP 151/95
--- NOTE | 2020-02-17 07:25 | NUR ---
NURSE HAND-OFF REPORT: Important Events on Shift:[Patient asked for his oxygen mask. Patient satting on low 90so on room air.] Patient Status: [Stable] Diet: [Cardiac diet] Pending Orders: [] Pending Results/Labs:[] Pending MD notification:[] Latest Vital Signs: Temperature 100.4 , Pulse 86 , B/P 151 /95 , Respiratory Rate 24 , O2 SAT 94 , Room Air, O2 Flow Rate 2.0 . Vital Sign Comment: [] EKG Rhythm: Sinus Rhythm Rhythm change?: N Notified?: N -Dr. Emperatriz INTERIANO Response: Message left await call Latest Hassan Fall Score: 20 Fall Risk: Low Risk Safety Measures: Call light Within Reach, Bed Alarm Zone 1, Side Rails Side Rails x2, Bed position Low and Locked. Fall Precautions: Yellow Socks Patient Fall Education Report given to [PRIYANKA iLcea].
[2020-02-17 08:00] VITALS: BP 174/112
--- NOTE | 2020-02-17 08:00 | NUR ---
NURSE NOTES: pt in bed resting. pt in pain and requesting pain medication more often than usual. Notified YENI marinelli that pt is seeking pain medication more often. Pt on monitoring tech no signs of cardiac or respiratory distress. Bed locked and in lowest position. Call light within reach. Pt has picc line patent. will continue to monitor Pt has a fever reported to YENI Marinelli.
[2020-02-17 08:32] LABS: BASOPHILS % (AUTO) 0.8 % (0.0-2.0); HEMATOCRIT 45.9 % (42.0-52.0); HEMOGLOBIN 15.7 G/DL (14.2-18.0); LYMPHOCYTES % (AUTO) 13.5 % (20.0-45.0); MEAN CORPUSCULAR VOLUME 83 FL (80-99); MONOCYTES % (AUTO) 5.3 % (1.0-10.0); NEUTROPHILS % (AUTO) 80.4 % (45.0-75.0); PLATELET COUNT 172 K/UL (150-450); RED BLOOD COUNT 5.54 M/UL (4.70-6.10); RED CELL DISTRIBUTION WIDTH 13.8 % (11.6-14.8); WHITE BLOOD COUNT 6.1 K/UL (4.8-10.8)
[2020-02-17 08:50] LABS: ANION GAP 9 mmol/L (5-15); BLOOD UREA NITROGEN 19 mg/dL (7-18); CALCIUM 8.1 MG/DL (8.5-10.1); CARBON DIOXIDE 26 MMOL/L (21-32); CHLORIDE 97 MMOL/L (98-107); CREATININE 0.9 MG/DL (0.55-1.30); POTASSIUM 4.4 MMOL/L (3.5-5.1); SODIUM 132 MMOL/L (136-145)
[2020-02-17] MEDS: Enoxaparin 40mg Inj SUBQ SCH (09:03)
[2020-02-17] MEDS: Losartan 25mg tab ORAL SCH (09:08)
--- NOTE | 2020-02-17 12:20 | NUR ---
CASE MANAGEMENT:REVIEW 02/17/20 SI: COVID PNEUMONIA. BACTEREMIA 100.5 124 20 174/112 94% on ra NA-132 IS: IV ANCEF Q8HRS HYDRALAZINE PO Q6HRS NORVASC PO BID COZAAR PO QD PROTONIX PO QD LOVENOX SQ QD IV DILAUDID Q4HRS PRN : TELEMETRY STATUS DCP: FROM HOTEL PLAN: DISCHARGE PLAN IS FOR HOME/HOTEL FOR 2 WEEKS OF IV ABX IV EDDIE DREW PROVIDED ANTIBIOTICS BUT HAVING DIFFICULTY FINDING [facility] WILLING TO SERVICE A COVID POSITIVE PATIENT FAXED REVIEWS AND DISCHARGE ORDER YESTERDAY ATTEMPTED TO REACH [facility], BUT MAIL BOX IS FULL
--- NOTE | 2020-02-17 14:05 | Infectious Diseases Prog Note ---
Assessment/Plan Assessment/Plan ASSESSMENT AND PLAN: 1. staph aureus bacteremia/mssa, ? source, ? endocarditis, sepsis, leukocytosis, ? CAP covid-19 +, mild sob, fevers noted today - continue cefazolin - day # 8 post negative surveillance blood cultures, will need at least 2 weeks ancef post-neg blood cultures - s/p dexamethasone for covid-19 pna, unlikely Remdesivir would be of benefit this long after symptoms - CT abdomen and pelvis without abscess - f/u on TTE, FERNY held secondary to + covid-19 test - may do as outpatient - monitor labs, reculture patient - communicated with Dr. Mata - picc line placed for IV antibiotics 2. covid-19 isolation 3. Hypertension history. Blood pressure treatment primary care team. 4. Elevated blood sugars. Blood sugar treatment per primary care team. 5. No known drug allergies. 6. Social history is positive for smoking. 7. Family history is noncontributory. 8. MAR was noted. 9. Case was discussed with RN. 10. Continue treatment per primary consultants. Subjective Constitutional: Reports: fever HEENT: Denies: congestion Respiratory: Reports: shortness of breath - mild Cardiovascular: Denies: chest pain Gastrointestinal/Abdominal: Denies: nausea, vomiting, diarrhea Genitourinary: Denies: dysuria Neurologic: Denies: headache Allergies: Coded Allergies: No Known Allergies (Unverified , 02/05/20) Objective Last 24 Hour Vital Signs Date Time Temp Pulse Resp B/P (MAP) Pulse Ox O2 Delivery O2 Flow Rate FiO2 02/17/20 11:38 149/92 02/17/20 09:38 99.8 02/17/20 09:08 174/112 02/17/20 09:08 124 174/112 02/17/20 08:00 100.5 124 20 174/112 (132) 94 02/17/20 05:21 151/95 02/17/20 04:00 86 02/17/20 04:00 100.4 92 24 151/95 (113) 94 02/17/20 01:01 130/87 02/17/20 00:00 97 02/17/20 00:00 98.4 87 20 130/84 (99) 93 02/16/20 23:07 98.7 02/16/20 21:00 Room Air 02/16/20 20:00 101.0 82 24 150/90 (110) 92 02/16/20 20:00 88 02/16/20 18:00 132/82 02/16/20 18:00 91 132/82 02/16/20 16:00 95 02/16/20 16:00 99.0 91 18 132/82 (99) 92 02/16/20 15:40 99.0 Height (Feet): 5 Height (Inches): 10.00 Weight (Pounds): 240 General Appearance: no acute distress HEENT: normocephalic, atraumatic, anicteric Respiratory/Chest: crackles/rales, rhonchi - bilaterally Cardiovascular: normal rate, regular rhythm, no gallop/murmur Abdomen: normal bowel sounds, soft, non tender, no organomegaly Genitourinary: other - no joseph CT chest: IMPRESSION: There are mild subpleural ground-glass and consolidating infiltrates in the dependent portions of both lower lobes and to lesser degree the upper lobes consistent with bilateral pneumonia. The infiltrates are typical for Covid 19. No evidence of pulmonary embolus. CT abdomen and pelvis: IMPRESSION: 1. Scattered hepatic hypodense lesions, too small to characterize on this examination without intravenous contrast. 2. Colonic diverticulosis without evidence of acute diverticulitis. 3. Scattered enlarged mesenteric lymph nodes, presumably reactive. teral pneumonia. The infiltrates are typical for Covid 19. No evidence of pulmonary embolus. Laboratory Tests Test 02/17/20 07:37 White Blood Count 6.1 K/UL (4.8-10.8) Red Blood Count 5.54 M/UL (4.70-6.10) Hemoglobin 15.7 G/DL (14.2-18.0) Hematocrit 45.9 % (42.0-52.0) Mean Corpuscular Volume 83 FL (80-99) Mean Corpuscular Hemoglobin 28.3 PG (27.0-31.0) Mean Corpuscular Hemoglobin Concent 34.1 G/DL (32.0-36.0) Red Cell Distribution Width 13.8 % (11.6-14.8) Platelet Count 172 K/UL (150-450) Mean Platelet Volume 6.9 FL (6.5-10.1) Neutrophils (%) (Auto) 80.4 % (45.0-75.0) H Lymphocytes (%) (Auto) 13.5 % (20.0-45.0) L Monocytes (%) (Auto) 5.3 % (1.0-10.0) Eosinophils (%) (Auto) 0.0 % (0.0-3.0) Basophils (%) (Auto) 0.8 % (0.0-2.0) Sodium Level 132 MMOL/L (136-145) L Potassium Level 4.4 MMOL/L (3.5-5.1) Chloride Level 97 MMOL/L (98-107) L Carbon Dioxide Level 26 MMOL/L (21-32) Anion Gap 9 mmol/L (5-15) Blood Urea Nitrogen 19 mg/dL (7-18) H Creatinine 0.9 MG/DL (0.55-1.30) Estimat Glomerular Filtration Rate > 60 mL/min (>60) Glucose Level 103 MG/DL (74-106) Calcium Level 8.1 MG/DL (8.5-10.1) L Current Medications Medications (Trade) Dose Ordered Sig/Dennis Route PRN Reason Start Time Stop Time Status Last Admin Dose Admin Acetaminophen (Tylenol) 650 mg Q4H PRN ORAL Temp >100.5 02/05/20 13:15 03/06/20 13:14 02/17/20 09:08 Acetaminophen (Tylenol) 650 mg Q4H PRN ORAL Pain (1-3) 02/09/20 08:30 03/10/20 08:29 02/09/20 08:25 Amlodipine Besylate (Norvasc) 5 mg BID ORAL 02/10/20 09:00 03/11/20 08:59 02/17/20 09:08 Bisacodyl (Dulcolax) 10 mg HSPRN PRN RECTAL Constipation 02/05/20 13:15 05/05/20 13:14 Cefazolin Sodium 50 ml @ 100 mls/hr Q8H IV 02/09/20 00:00 02/22/20 00:00 02/17/20 09:01 Chlorhexidine Gluconate (Marlen-Hex 2%) 1 applic DAILY@1999 TOPIC 02/14/20 20:00 05/14/20 19:59 02/16/20 19:55 Dextrose (Dextrose 50%) 25 ml Q30M PRN IV Hypoglycemia 02/05/20 13:15 05/05/20 13:14 Dextrose (Dextrose 50%) 50 ml Q30M PRN IV Hypoglycemia 02/05/20 13:15 05/05/20 13:14 Enoxaparin Sodium (Lovenox) 40 mg DAILY SUBQ 02/05/20 15:00 05/05/20 14:59 02/17/20 09:03 Guaifenesin/ Dextromethorphan (Robitussin DM Syrup) 10 ml Q6H PRN ORAL For Cough 02/16/20 14:15 05/16/20 14:14 02/16/20 22:37 Hydralazine HCl (Apresoline) 25 mg Q6HR ORAL 02/10/20 18:00 05/10/20 17:59 02/17/20 11:38 Hydromorphone HCl (Dilaudid) 0.5 mg Q4H PRN IVP For Pain 02/11/20 08:42 02/18/20 08:41 02/17/20 11:38 Losartan Potassium (Cozaar) 25 mg DAILY ORAL 02/14/20 09:00 03/15/20 08:59 02/17/20 09:08 Magnesium Hydroxide (Mom) 30 ml HSPRN PRN ORAL Constipation 02/05/20 13:15 03/06/20 13:14 Nitroglycerin (Ntg) 0.4 mg Q5M PRN SL Prn Chest Pain 02/05/20 06:15 03/06/20 06:14 02/12/20 17:40 Ondansetron HCl (Zofran) 4 mg Q6H PRN IVP Nausea & Vomiting 02/05/20 13:15 03/06/20 13:14 Pantoprazole (Protonix) 40 mg DAILY ORAL 02/06/20 09:00 03/07/20 08:59 02/17/20 09:03 Polyethylene Glycol (Miralax) 17 gm HSPRN PRN ORAL Constipation 02/05/20 13:15 03/06/20 13:14 Kisha Salazar MD Feb 17, 2020 14:05
--- NOTE | 2020-02-17 15:08 | NUR ---
RADIOLOGY DEPT., CHEST X-RAY DONE.-P. DYE
--- NOTE | 2020-02-17 15:44 | Pulmonology Progress Note ---
Subjective ROS Limited/Unobtainable: No Interval Events: pt states he feels "cold air" in his left chest" Constitutional: Reports: fever HEENT: Repors: no symptoms Respiratory: Reports: dry cough Cardiovascular: Denies: no symptoms, chest pain, palpitations, other Gastrointestinal/Abdominal: Denies: nausea, vomiting, diarrhea Psychiatric: Denies: depression Skin: Denies: rash Musculoskeletal: Denies: pain Allergies: Coded Allergies: No Known Allergies (Unverified , 02/05/20) Subjective pt requesting to be off laxatives saying he can have bowel movements without any problem Objective Last 24 Hour Vital Signs Date Time Temp Pulse Resp B/P (MAP) Pulse Ox O2 Delivery O2 Flow Rate FiO2 02/17/20 11:38 149/92 02/17/20 09:38 99.8 02/17/20 09:08 174/112 02/17/20 09:08 124 174/112 02/17/20 08:00 100.5 124 20 174/112 (132) 94 02/17/20 05:21 151/95 02/17/20 04:00 86 02/17/20 04:00 100.4 92 24 151/95 (113) 94 02/17/20 01:01 130/87 02/17/20 00:00 97 02/17/20 00:00 98.4 87 20 130/84 (99) 93 02/16/20 23:07 98.7 02/16/20 21:00 Room Air 02/16/20 20:00 101.0 82 24 150/90 (110) 92 02/16/20 20:00 88 02/16/20 18:00 132/82 02/16/20 18:00 91 132/82 02/16/20 16:00 95 02/16/20 16:00 99.0 91 18 132/82 (99) 92 Intake and Output 02/16/20 02/17/20 19:00 07:00 Intake Total 800 ml 420 ml Output Total 275 ml Balance 525 ml 420 ml Intake Oral 800 ml 420 ml Output Urine Total 275 ml # Voids 3 3 # Bowel Movements 1 Objective 02/17/2020 now on 2 lpm NC 02/16/2020 no change 02/15/2020 no major change 02/14/2020 saturating well on RAD; NAD 02/13/2020 pt asleep; saturating well on RA 02/12/2020 sitting up in a chair; saturating well on RA 02/11/2020 back on isolation due to COVID-19 positive status again; currently being worked up for positive blood culture 02/09/2020 off isolation; saturating well on RA 02/08/2020 feeling better; COVID-19 PCR neg 02/07/2020 reports feeling better; COVID-19 PCR pending 02/06/2020 pt laying in bed; reports feeling better General Appearance: WD/WN, no acute distress HEENT: normocephalic, atraumatic Respiratory: chest wall non-tender, lungs clear Cardiovascular: normal rate, regular rhythm Abdomen: normal bowel sounds, soft, non tender, other - obese Laboratory Tests 02/17/20 07:37: White Blood Count 6.1, Red Blood Count 5.54, Hemoglobin 15.7, Hematocrit 45.9, Mean Corpuscular Volume 83, Mean Corpuscular Hemoglobin 28.3, Mean Corpuscular Hemoglobin Concent 34.1, Red Cell Distribution Width 13.8, Platelet Count 172, Mean Platelet Volume 6.9, Neutrophils (%) (Auto) 80.4H, Lymphocytes (%) (Auto) 13.5L, Monocytes (%) (Auto) 5.3, Eosinophils (%) (Auto) 0.0, Basophils (%) (Auto) 0.8, Sodium Level 132L, Potassium Level 4.4, Chloride Level 97L, Carbon Dioxide Level 26, Anion Gap 9, Blood Urea Nitrogen 19H, Creatinine 0.9, Estimat Glomerular Filtration Rate > 60, Glucose Level 103, Calcium Level 8.1L Current Medications Medications (Trade) Dose Ordered Sig/Dennis Route PRN Reason Start Time Stop Time Status Last Admin Dose Admin Acetaminophen (Tylenol) 650 mg Q4H PRN ORAL Temp >100.5 02/05/20 13:15 03/06/20 13:14 02/17/20 09:08 Acetaminophen (Tylenol) 650 mg Q4H PRN ORAL Pain (1-3) 02/09/20 08:30 03/10/20 08:29 02/09/20 08:25 Amlodipine Besylate (Norvasc) 5 mg BID ORAL 02/10/20 09:00 03/11/20 08:59 02/17/20 09:08 Bisacodyl (Dulcolax) 10 mg HSPRN PRN RECTAL Constipation 02/05/20 13:15 05/05/20 13:14 Cefazolin Sodium 50 ml @ 100 mls/hr Q8H IV 02/09/20 00:00 02/22/20 00:00 02/17/20 09:01 Chlorhexidine Gluconate (Marlen-Hex 2%) 1 applic DAILY@2000 TOPIC 02/14/20 20:00 05/14/20 19:59 02/16/20 19:55 Dextrose (Dextrose 50%) 25 ml Q30M PRN IV Hypoglycemia 02/05/20 13:15 05/05/20 13:14 Dextrose (Dextrose 50%) 50 ml Q30M PRN IV Hypoglycemia 02/05/20 13:15 05/05/20 13:14 Enoxaparin Sodium (Lovenox) 40 mg DAILY SUBQ 02/05/20 15:00 05/05/20 14:59 02/17/20 09:03 Guaifenesin/ Dextromethorphan (Robitussin DM Syrup) 10 ml Q6H PRN ORAL For Cough 02/16/20 14:15 05/16/20 14:14 02/16/20 22:37 Hydralazine HCl (Apresoline) 25 mg Q6HR ORAL 02/10/20 18:00 05/10/20 17:59 02/17/20 11:38 Hydromorphone HCl (Dilaudid) 0.5 mg Q4H PRN IVP For Pain 02/11/20 08:42 02/18/20 08:41 02/17/20 11:38 Losartan Potassium (Cozaar) 25 mg DAILY ORAL 02/14/20 09:00 03/15/20 08:59 02/17/20 09:08 Magnesium Hydroxide (Mom) 30 ml HSPRN PRN ORAL Constipation 02/05/20 13:15 03/06/20 13:14 Nitroglycerin (Ntg) 0.4 mg Q5M PRN SL Prn Chest Pain 02/05/20 06:15 03/06/20 06:14 02/12/20 17:40 Ondansetron HCl (Zofran) 4 mg Q6H PRN IVP Nausea & Vomiting 02/05/20 13:15 1/4/21 13:14 Pantoprazole (Protonix) 40 mg DAILY ORAL 02/06/20 09:00 03/07/20 08:59 02/17/20 09:03 Polyethylene Glycol (Miralax) 17 gm HSPRN PRN ORAL Constipation 02/05/20 13:15 03/06/20 13:14 Assessment/Plan Assessment/Plan Assessment/Plan 1. High suspicion for COVID-19 pneumonia. - s/p decadron - last COVID-19 test positive after two negative tests - CTA 02/05/2020 ground-glass and consolidating infiltrates in the dependent portions of both lower lobes and to lesser degree the upper lobes consistent with bilateral pneumonia. No evidence of pulmonary embolus. - now on 2 lpm NC saturating well - Mycoplasma pneumoniae IgG 273; M. pneumoniae IgM titer within normal limits - CXR 02/17/2020 pending - Has fever overnight with increased SOB 2. Initial negative rapid COVID-19 gene assay. 3. Smoker. 4. DVT ppx - on lovenox 5. Hypertension - on hydralazine, and norvasc - Switched to cardiac diet 6. Blood culture positive for gram positive cocci staph aureus - on Abx - CT abd/pelvis showed no abscess per ID - TTE/ FERNY held off due to COVID-19 status - PICC line in place Noted pl;ans for discharge home/hotel with home health for ancef via PICC line dc pending - heel caser looking for home health agency We will follow carefully. The care for this patient was discussed with my supervising physician. Time spent for this case was approximately 31 minutes. The patient was seen and examined at bedside and all new and available data was reviewed in the patients chart. I agree with the above findings, impression, and plan. (Patient was seen earlier today. Signature timestamp does not reflect patient encounter time) Edilson Peacock MD Feb 17, 2020 15:44 John Mata MD Feb 17, 2020 17:25
[2020-02-17 16:00] VITALS: BP 152/100
--- NOTE | 2020-02-17 16:49 | Diagnostic Imaging Report ---
Indication: Cough Technique: One view of the chest Comparison: Post PICC radiograph dated 02/14/2020 Findings: Interim development of bilateral linear opacities, left greater than right, in a peripheral peribronchovascular distribution. Heart size is normal. Left arm PICC is again demonstrated, appears to have pulled back somewhat Impression: Developing bilateral peripheral infiltrates, concerning for multifocal pneumonia, possibly viral
--- NOTE | 2020-02-17 19:13 | Cardiology Progress Note ---
Assessment/Plan Assessment/Plan Acute covid 19 pneumonia chest pain possible M/S infiltrate bilat bacteremia drug free for 28 years his of ivda echo normal wall motion last week ct finding reportedly highly suggestive of covid 19 3rd test positive for covid after initial 2 were neg he was suppoed to be dcd but has had some changes epr rn requesting iv dilaudid every 4-5 hour for pain not suer whey he needs dilaudid (has hs of ivda 28 years ago ) will need to switch to oral meds may be nsaids tele stirp sinus no st changes on tel note ct of chest result will have ekg and trop add more bp meds diuresis blood cx neg d/w rn Subjective ROS Limited/Unobtainable: Yes Subjective pt now in covid 19 isolation per pulm Interval Events: pt states he feels "cold air" in his left chest" Constitutional: Reports: fever HEENT: Repors: no symptoms Respiratory: Reports: dry cough Cardiovascular: Denies: no symptoms, chest pain, palpitations, other Gastrointestinal/Abdominal: Denies: nausea, vomiting, diarrhea Objective Last 24 Hour Vital Signs Date Time Temp Pulse Resp B/P (MAP) Pulse Ox O2 Delivery O2 Flow Rate FiO2 02/17/20 17:58 152/100 02/17/20 17:58 114 152/100 02/17/20 16:22 99.8 02/17/20 16:00 96.6 114 20 152/100 (117) 94 02/17/20 11:38 149/92 02/17/20 09:38 99.8 02/17/20 09:08 174/112 02/17/20 09:08 124 174/112 02/17/20 08:00 100.5 124 20 174/112 (132) 94 02/17/20 05:21 151/95 02/17/20 04:00 86 02/17/20 04:00 100.4 92 24 151/95 (113) 94 02/17/20 01:01 130/87 02/17/20 00:00 97 02/17/20 00:00 98.4 87 20 130/84 (99) 93 02/16/20 23:07 98.7 02/16/20 21:00 Room Air 02/16/20 20:00 101.0 82 24 150/90 (110) 92 02/16/20 20:00 88 Intake and Output 02/16/20 02/17/20 19:00 07:00 Intake Total 800 ml 420 ml Output Total 275 ml Balance 525 ml 420 ml Intake Oral 800 ml 420 ml Output Urine Total 275 ml # Voids 3 3 # Bowel Movements 1 Laboratory Tests Test 02/17/20 07:37 White Blood Count 6.1 K/UL (4.8-10.8) Red Blood Count 5.54 M/UL (4.70-6.10) Hemoglobin 15.7 G/DL (14.2-18.0) Hematocrit 45.9 % (42.0-52.0) Mean Corpuscular Volume 83 FL (80-99) Mean Corpuscular Hemoglobin 28.3 PG (27.0-31.0) Mean Corpuscular Hemoglobin Concent 34.1 G/DL (32.0-36.0) Red Cell Distribution Width 13.8 % (11.6-14.8) Platelet Count 172 K/UL (150-450) Mean Platelet Volume 6.9 FL (6.5-10.1) Neutrophils (%) (Auto) 80.4 % (45.0-75.0) H Lymphocytes (%) (Auto) 13.5 % (20.0-45.0) L Monocytes (%) (Auto) 5.3 % (1.0-10.0) Eosinophils (%) (Auto) 0.0 % (0.0-3.0) Basophils (%) (Auto) 0.8 % (0.0-2.0) Sodium Level 132 MMOL/L (136-145) L Potassium Level 4.4 MMOL/L (3.5-5.1) Chloride Level 97 MMOL/L (98-107) L Carbon Dioxide Level 26 MMOL/L (21-32) Anion Gap 9 mmol/L (5-15) Blood Urea Nitrogen 19 mg/dL (7-18) H Creatinine 0.9 MG/DL (0.55-1.30) Estimat Glomerular Filtration Rate > 60 mL/min (>60) Glucose Level 103 MG/DL (74-106) Calcium Level 8.1 MG/DL (8.5-10.1) L Objective pt in covid 19 isoaltion with acute infection per id General Appearance: no acute distress HEENT: normocephalic, atraumatic, anicteric Respiratory/Chest: crackles/rales, rhonchi - bilaterally Cardiovascular: normal rate, regular rhythm, no gallop/murmur Abdomen: normal bowel sounds, soft, non tender, no organomegaly Manan Awan MD Feb 17, 2020 19:13
--- NOTE | 2020-02-17 19:25 | NUR ---
NURSE NOTES: Patient received from PRIYANKA Licea. Patient is awake, alert and oriented x 4. Patient is complaining of chest pain pain and asking for pain medication, will tend to his needs. Patient is on room air, with no signs of acute respiratory distress noted. Urinal is in bed, patient is able to ambulate with a steady gait. Patient has an IV on his left forearm, patent and flushed. Patient has a PICC line on his left upper arm. Bed is in the lowest position and locked, call light within reach. Will continue to monitor.
[2020-02-17 20:00] VITALS: BP 148/91
[2020-02-17] MEDS: Lisinopril 20mg tab ORAL SCH (20:24)
[2020-02-17] MEDS: Dyna-Hex 2% Top Sol 2oz TOPIC SCH (20:24)
[2020-02-17] MEDS: HydrALAZINE 50mg tab ORAL SCH (20:54)
--- NOTE | 2020-02-17 20:57 | NUR ---
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 Vital Sign Comment: [] EKG Rhythm: Sinus Rhythm Rhythm change?: N Notified?: N -Dr. Emperatriz INTERIANO Response: Message left await call Latest Hassan Fall Score: 20 Fall Risk: Low Risk Safety Measures: Call light Within Reach, Bed Alarm Zone 1, Side Rails Side Rails x2, Bed position Low and Locked. Fall Precautions: y Yellow Socks y Patient Fall Education Report given to [].Mary Kay/PRIYANKA
[2020-02-17] MEDS ORDERED: NS 275ml ONE (22:20)
[2020-02-18] VITALS: BP 147/85
[2020-02-18] MEDS: ceFAZolin 2gm/50ml Premix 50 ML IV SCH ×2 (00:16→08:46)
[2020-02-18] MEDS: HydrALAZINE 50mg tab ORAL SCH ×5 (00:16→23:58)
[2020-02-18] MEDS: Hydromorphone 0.5mg/0.5ml inj IVP PRN ×2 (01:00→05:22)
[2020-02-18 04:00] VITALS: BP 118/70
[2020-02-18 07:00] LABS: BASOPHILS % (AUTO) 0.3 % (0.0-2.0); HEMATOCRIT 44.7 % (42.0-52.0); HEMOGLOBIN 15.2 G/DL (14.2-18.0); LYMPHOCYTES % (AUTO) 11.9 % (20.0-45.0); MEAN CORPUSCULAR VOLUME 83 FL (80-99); MONOCYTES % (AUTO) 7.1 % (1.0-10.0); NEUTROPHILS % (AUTO) 80.7 % (45.0-75.0); PLATELET COUNT 175 K/UL (150-450); RED BLOOD COUNT 5.39 M/UL (4.70-6.10); RED CELL DISTRIBUTION WIDTH 13.4 % (11.6-14.8)
[2020-02-18 07:35] LABS: ALANINE AMINOTRANSFERASE 53 U/L (12-78); ALBUMIN 2.8 G/DL (3.4-5.0); ALBUMIN/GLOBULIN RATIO 0.7 (1.0-2.7); ALKALINE PHOSPHATASE 49 U/L (46-116); ANION GAP 7 mmol/L (5-15); ASPARTATE AMINO TRANSFERASE 42 U/L (15-37); BILIRUBIN,TOTAL 0.7 MG/DL (0.2-1.0); BLOOD UREA NITROGEN 27 mg/dL (7-18); CALCIUM 7.9 MG/DL (8.5-10.1); CARBON DIOXIDE 27 MMOL/L (21-32); CHLORIDE 98 MMOL/L (98-107); CREATININE 1.2 MG/DL (0.55-1.30); POTASSIUM 4.3 MMOL/L (3.5-5.1); SODIUM 132 MMOL/L (136-145)
--- NOTE | 2020-02-18 07:35 | NUR ---
NURSE HAND-OFF REPORT: Important Events on Shift:[Patient ask for dilaudid medication every four hours. Complaining of aches on his chest and shoulder not "pain" per patient.] Patient Status: [Stable] Diet: [Cardiac diet] Pending Orders: [] Pending Results/Labs:[] Pending MD notification:[] Latest Vital Signs: Temperature 100.0 , Pulse 85 , B/P 118 /70 , Respiratory Rate 28 , O2 SAT 92 , Room Air, O2 Flow Rate 4.0 . Vital Sign Comment: [] EKG Rhythm: Sinus Tachycardia Rhythm change?: Y Notified?: N -Dr. Emperatriz INTERIANO Response: Message left await call Latest Hassan Fall Score: 20 Fall Risk: Low Risk Safety Measures: Call light Within Reach, Bed Alarm Zone 1, Side Rails Side Rails x2, Bed position Low and Locked. Fall Precautions: Yellow Socks Patient Fall Education Report given to [PRIYANKA Gamez].
--- NOTE | 2020-02-18 07:50 | NUR ---
NURSE NOTES: Received hand-off report from Mary Kay Hernandez RN. Patient in stable condition, breathing even and unlabored on 15L non-rebreather. Patient alert and oriented x4, able to verbalize needs well, bed in lowest and locked position, bed alarm on, call light within reach. Addendum: 02/18/20 at 0809 by Franco Romero RN Wrong patient.
[2020-02-18 08:00] VITALS: BP 138/80
--- NOTE | 2020-02-18 08:08 | NUR ---
NURSE NOTES: Received hand-off report from Mary Kay Nolasco RN. Patient in stable condition, breathing even and unlabored on 4L nasal cannula. Patient alert and oriented x4, able to verbalize needs well, bed in lowest and locked position, bed alarm on, call light within reach.
[2020-02-18] MEDS: Lisinopril 20mg tab ORAL SCH ×2 (08:47→20:52)
[2020-02-18] MEDS: Enoxaparin 40mg Inj SUBQ SCH (08:48)
--- NOTE | 2020-02-18 09:01 | NUR ---
NURSE NOTES: Called Dr. Mata regarding patient saturating 82%. Respiratory therapist notified and they are in the room now. Addendum: 02/18/20 at 0916 by Franco Romero RN Left a voicemail at [address] Mata.
--- NOTE | 2020-02-18 09:16 | NUR ---
NURSE NOTES: Patient spO2 is at 87% and RT is bedside trying venturi mask and now on nonrebreather.
--- NOTE | 2020-02-18 09:38 | NUR ---
CASE MANAGEMENT:REVIEW 02/18/20 SI: COVID PNEUMONIA. BACTEREMIA 100.0 94 22 138/80 94% ON RA NA-132 BUN+27 CA-7.9 IS: IV ANCEF Q8HRS HYDRALAZINE PO Q6HRS LISINOPRIL P OQ12 NORVASC PO BID COZAAR PO QD PROTONIX PO QD LOVENOX SQ QD IV DILAUDID Q4HRS PRN : TELEMETRY STATUS DCP: FROM [facility]
--- NOTE | 2020-02-18 10:05 | NUR ---
NURSE NOTES: Dr. Mata called back regarding desaturation and Dr. Mata aware patient is on nonrebreather 15L and spO2 at 90%. Chest x-ray stat was order and no other order for now.
--- NOTE | 2020-02-18 10:50 | NUR ---
NURSE NOTES: Called and left a voicemail regarding spo2 trending down and ineffectiveness of nonrebreather 15L. Patient currently saturating at 86-85% on nonrebreather 15L.
--- NOTE | 2020-02-18 10:58 | NUR ---
RESPIRATORY NOTE: PT PLACED ON NRB MASK DUE TO DESAT. SPO2 92%. WAITING ON NEW ORDERS.
--- NOTE | 2020-02-18 11:44 | NUR ---
RADIOLOGY DEPT., CHEST X-RAY DONE.-P.DYE
--- NOTE | 2020-02-18 14:03 | NUR ---
NURSE NOTES: Notified Dr. Awan and aware of negative troponin (0.018) and EKG done today was sent. No new orders at this time.
--- NOTE | 2020-02-18 15:00 | NUR ---
NURSE NOTES: Notified Dr. Mata regarding spO2 91% on nonrebreather and requested a PRN bipap but Dr. Mata stated, "No PRN Bipap, I want to see how he does first with the nonrebreather" No new orders at this time.
[2020-02-18 16:00] VITALS: BP 129/79
--- NOTE | 2020-02-18 16:43 | Diagnostic Imaging Report ---
Indication: Shortness of breath Technique: One view of the chest Comparison: 02/17/2020 Findings: Interim worsening of bilateral infiltrates, particularly on the right. The heart is borderline enlarged. The pleural spaces are clear. Left arm PICC is again demonstrated Impression: Worsening bilateral infiltrates over one day, likely pneumonia
--- NOTE | 2020-02-18 16:59 | NUR ---
NURSE NOTES: Called and left Dr. Mata regarding worsening bilateral infiltrates over one day. Awaiting callback/potential orders.
--- NOTE | 2020-02-18 17:12 | Infectious Diseases Prog Note ---
Assessment/Plan Assessment/Plan ASSESSMENT AND PLAN: 1. staph aureus bacteremia/mssa, ? source, ? endocarditis, sepsis, leukocytosis, ? CAP covid-19 +, hypoxia, sob, chest x-ray worse, ? PE, ? HCAP/aspiration pna - change abx to zosyn and vancomycin - day # 10 post negative surveillance blood cultures, will need at least 2 weeks ancef post-neg blood cultures for MSSA bacteremia - s/p dexamethasone for covid-19 pna, unlikely Remdesivir would be of benefit this long after symptoms - CT abdomen and pelvis without abscess - f/u on TTE, FERNY held secondary to + covid-19 test - may do as outpatient - monitor labs, f/u on repeat cultures - d/w with Dr. Mata - picc line placed for IV antibiotics 2. covid-19 isolation 3. Hypertension history. Blood pressure treatment primary care team. 4. Elevated blood sugars. Blood sugar treatment per primary care team. 5. No known drug allergies. 6. Social history is positive for smoking. 7. Family history is noncontributory. 8. MAR was noted. 9. Case was discussed with RN. 10. Continue treatment per primary consultants. Subjective Constitutional: Reports: fatigue; Denies: fever HEENT: Denies: congestion Respiratory: Denies: shortness of breath Cardiovascular: Denies: chest pain Gastrointestinal/Abdominal: Denies: nausea, vomiting, diarrhea Genitourinary: Denies: dysuria Neurologic: Denies: headache Psychiatric: Denies: depression Skin: Denies: rash Hematologic: Denies: bleeding Musculoskeletal: Denies: pain Allergies: Coded Allergies: No Known Allergies (Unverified , 02/05/20) Objective Last 24 Hour Vital Signs Date Time Temp Pulse Resp B/P (MAP) Pulse Ox O2 Delivery O2 Flow Rate FiO2 02/18/20 13:53 125/80 02/18/20 12:30 95 23 92 02/18/20 12:00 83 02/18/20 10:47 97.5 02/18/20 08:47 138/80 02/18/20 08:47 94 138/80 02/18/20 08:00 97.5 94 22 138/80 (99) 94 02/18/20 08:00 84 02/18/20 05:52 100.0 02/18/20 05:22 118/70 02/18/20 04:00 81 02/18/20 04:00 100.0 85 28 118/70 (86) 92 02/18/20 00:46 97.7 02/18/20 00:16 147/85 02/18/20 00:00 100.6 97 24 147/85 (105) 92 02/18/20 00:00 102 02/17/20 21:00 Nasal Cannula 4.0 02/17/20 20:54 148/91 02/17/20 20:24 148/91 02/17/20 20:00 98.8 102 22 148/91 (110) 92 02/17/20 20:00 100 02/17/20 17:58 152/100 02/17/20 17:58 114 152/100 Height (Feet): 5 Height (Inches): 10.00 Weight (Pounds): 240 General Appearance: other - some sob, no NR HEENT: normocephalic, atraumatic, anicteric Respiratory/Chest: crackles/rales, rhonchi - bilaterally Cardiovascular: normal rate, regular rhythm, no gallop/murmur Abdomen: normal bowel sounds, soft, non tender, no organomegaly, non distended Genitourinary: other - no joseph Extremities: no cyanosis Skin: no rash Neurologic/Psychiatric: obstetrical nurse II-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 The infiltrates are typical for Covid 19. No evidence of pulmonary embolus. CT abdomen and pelvis: IMPRESSION: 1. Scattered hepatic hypodense lesions, too small to characterize on this examination without intravenous contrast. 2. Colonic diverticulosis without evidence of acute diverticulitis. 3. Scattered enlarged mesenteric lymph nodes, presumably reactive. teral pneumonia. The infiltrates are typical for Covid 19. No evidence of pulmonary embolus. Chest x-ray - 12/19/19 - Indication: Shortness of breath Technique: One view of the chest Comparison: 02/17/2020 Findings: Interim worsening of bilateral infiltrates, particularly on the right. The heart is borderline enlarged. The pleural spaces are clear. Left arm PICC is again demonstrated Impression: Worsening bilateral infiltrates over one day, likely pneumonia Microbiology Date/Time Source Procedure Growth Status 02/17/20 19:00 Urine,Clean Catch Urine Culture - Preliminary NO GROWTH Resulted 02/10/20 06:30 Nasopharynx SARS-CoV-2 RdRp Gene Assay - Final Complete 02/09/20 07:20 Blood Blood Culture - Final NO GROWTH AFTER 5 DAYS Complete Microbiology Date/Time Source Procedure Growth Status 02/17/20 19:00 Urine,Clean Catch Urine Culture - Preliminary NO GROWTH Resulted Laboratory Tests Test 02/17/20 21:35 02/18/20 06:00 Troponin I 0.018 ng/mL (0.000-0.056) 0.018 ng/mL (0.000-0.056) White Blood Count 8.0 K/UL (4.8-10.8) Red Blood Count 5.39 M/UL (4.70-6.10) Hemoglobin 15.2 G/DL (14.2-18.0) Hematocrit 44.7 % (42.0-52.0) Mean Corpuscular Volume 83 FL (80-99) Mean Corpuscular Hemoglobin 28.3 PG (27.0-31.0) Mean Corpuscular Hemoglobin Concent 34.1 G/DL (32.0-36.0) Red Cell Distribution Width 13.4 % (11.6-14.8) Platelet Count 175 K/UL (150-450) Mean Platelet Volume 6.7 FL (6.5-10.1) Neutrophils (%) (Auto) 80.7 % (45.0-75.0) H Lymphocytes (%) (Auto) 11.9 % (20.0-45.0) L Monocytes (%) (Auto) 7.1 % (1.0-10.0) Eosinophils (%) (Auto) 0.0 % (0.0-3.0) Basophils (%) (Auto) 0.3 % (0.0-2.0) Sodium Level 132 MMOL/L (136-145) L Potassium Level 4.3 MMOL/L (3.5-5.1) Chloride Level 98 MMOL/L (98-107) Carbon Dioxide Level 27 MMOL/L (21-32) Anion Gap 7 mmol/L (5-15) Blood Urea Nitrogen 27 mg/dL (7-18) H Creatinine 1.2 MG/DL (0.55-1.30) Estimat Glomerular Filtration Rate > 60 mL/min (>60) Glucose Level 104 MG/DL (74-106) Calcium Level 7.9 MG/DL (8.5-10.1) L Total Bilirubin 0.7 MG/DL (0.2-1.0) Aspartate Amino Transf (AST/SGOT) 42 U/L (15-37) H Alanine Aminotransferase (ALT/SGPT) 53 U/L (12-78) Alkaline Phosphatase 49 U/L (46-116) Pro-B-Type Natriuretic Peptide Pending Total Protein 7.1 G/DL (6.4-8.2) Albumin 2.8 G/DL (3.4-5.0) L Globulin 4.3 g/dL Albumin/Globulin Ratio 0.7 (1.0-2.7) L Current Medications Medications (Trade) Dose Ordered Sig/Dennis Route PRN Reason Start Time Stop Time Status Last Admin Dose Admin Acetaminophen (Tylenol) 650 mg Q4H PRN ORAL Temp >100.5 02/05/20 13:15 03/06/20 13:14 02/18/20 00:16 Acetaminophen (Tylenol) 650 mg Q4H PRN ORAL Pain (1-3) 02/09/20 08:30 03/10/20 08:29 02/09/20 08:25 Amlodipine Besylate (Norvasc) 5 mg BID ORAL 02/10/20 09:00 03/11/20 08:59 02/18/20 08:47 Bisacodyl (Dulcolax) 10 mg HSPRN PRN RECTAL Constipation 02/05/20 13:15 05/05/20 13:14 Cefazolin Sodium 50 ml @ 100 mls/hr Q8H IV 02/09/20 00:00 02/22/20 00:00 02/18/20 08:46 Chlorhexidine Gluconate (Marlen-Hex 2%) 1 applic DAILY@2000 TOPIC 02/14/20 20:00 05/14/20 19:59 02/17/20 20:24 Dextrose (Dextrose 50%) 25 ml Q30M PRN IV Hypoglycemia 02/05/20 13:15 05/05/20 13:14 Dextrose (Dextrose 50%) 50 ml Q30M PRN IV Hypoglycemia 02/05/20 13:15 05/05/20 13:14 Enoxaparin Sodium (Lovenox) 40 mg DAILY SUBQ 02/05/20 15:00 05/05/20 14:59 02/18/20 08:48 Guaifenesin/ Dextromethorphan (Robitussin DM Syrup) 10 ml Q6H PRN ORAL For Cough 02/16/20 14:15 05/16/20 14:14 02/16/20 22:37 Hydralazine HCl (Apresoline) 50 mg Q6HR ORAL 02/17/20 19:30 05/17/20 19:29 02/18/20 13:53 Ibuprofen (Motrin) 600 mg TIDPRN PRN ORAL Breakthrough Pain 02/17/20 19:30 03/18/20 19:29 02/18/20 10:17 Lisinopril (PriniviL) 20 mg Q12HR ORAL 02/17/20 19:30 03/18/20 19:29 02/18/20 08:47 Magnesium Hydroxide (Mom) 30 ml HSPRN PRN ORAL Constipation 02/05/20 13:15 03/06/20 13:14 Nitroglycerin (Ntg) 0.4 mg Q5M PRN SL Prn Chest Pain 02/05/20 06:15 03/06/20 06:14 02/12/20 17:40 Ondansetron HCl (Zofran) 4 mg Q6H PRN IVP Nausea & Vomiting 02/05/20 13:15 03/06/20 13:14 Pantoprazole (Protonix) 40 mg DAILY ORAL 02/06/20 09:00 03/07/20 08:59 02/18/20 08:47 Polyethylene Glycol (Miralax) 17 gm HSPRN PRN ORAL Constipation 02/05/20 13:15 03/06/20 13:14 Kisha Salazar MD Feb 18, 2020 17:12
--- NOTE | 2020-02-18 17:35 | Pulmonology Progress Note ---
Subjective ROS Limited/Unobtainable: No Interval Events: pt states he feels "cold air" in his left chest" Constitutional: Reports: fatigue; Denies: fever HEENT: Repors: no symptoms Respiratory: Reports: dry cough, shortness of breath Cardiovascular: Denies: no symptoms, chest pain, palpitations, other Gastrointestinal/Abdominal: Denies: nausea, vomiting, diarrhea Psychiatric: Denies: depression Skin: Denies: rash Musculoskeletal: Denies: pain Allergies: Coded Allergies: No Known Allergies (Unverified , 02/05/20) Subjective pt requesting to be off laxatives saying he can have bowel movements without any problem Objective Last 24 Hour Vital Signs Date Time Temp Pulse Resp B/P (MAP) Pulse Ox O2 Delivery O2 Flow Rate FiO2 02/18/20 17:25 129/79 02/18/20 17:25 85 129/79 02/18/20 16:00 98.6 85 23 129/79 (96) 94 02/18/20 13:53 125/80 02/18/20 12:30 95 23 92 02/18/20 12:00 83 02/18/20 10:47 97.5 02/18/20 08:47 138/80 02/18/20 08:47 94 138/80 02/18/20 08:00 97.5 94 22 138/80 (99) 94 02/18/20 08:00 84 02/18/20 05:52 100.0 02/18/20 05:22 118/70 02/18/20 04:00 81 02/18/20 04:00 100.0 85 28 118/70 (86) 92 02/18/20 00:46 97.7 02/18/20 00:16 147/85 02/18/20 00:00 100.6 97 24 147/85 (105) 92 02/18/20 00:00 102 02/17/20 21:00 Nasal Cannula 4.0 02/17/20 20:54 148/91 02/17/20 20:24 148/91 02/17/20 20:00 98.8 102 22 148/91 (110) 92 02/17/20 20:00 100 02/17/20 17:58 152/100 02/17/20 17:58 114 152/100 Intake and Output 02/17/20 02/18/20 19:00 07:00 Intake Total 650 ml 360 ml Output Total 450 ml Balance 200 ml 360 ml Intake Oral 650 ml Other 360 ml Output Urine Total 450 ml # Voids 2 Objective 02/17 now on 15L NRB mask saturating at 91% 02/17/2020 now on 2 lpm NC 02/16/2020 no change 02/15/2020 no major change 02/14/2020 saturating well on RAD; NAD 02/13/2020 pt asleep; saturating well on RA 02/12/2020 sitting up in a chair; saturating well on RA 02/11/2020 back on isolation due to COVID-19 positive status again; currently being worked up for positive blood culture 02/09/2020 off isolation; saturating well on RA 02/08/2020 feeling better; COVID-19 PCR neg 02/07/2020 reports feeling better; COVID-19 PCR pending 02/06/2020 pt laying in bed; reports feeling better General Appearance: WD/WN, no acute distress HEENT: normocephalic, atraumatic Respiratory: chest wall non-tender Cardiovascular: normal rate, regular rhythm Abdomen: normal bowel sounds, soft, non tender, other - obese Microbiology Date/Time Source Procedure Growth Status 02/17/20 19:00 Urine,Clean Catch Urine Culture - Preliminary NO GROWTH Resulted Laboratory Tests 02/17/20 21:35: Troponin I 0.018 02/18/20 06:00: Troponin I 0.018, White Blood Count 8.0, Red Blood Count 5.39, Hemoglobin 15.2, Hematocrit 44.7, Mean Corpuscular Volume 83, Mean Corpuscular Hemoglobin 28.3, Mean Corpuscular Hemoglobin Concent 34.1, Red Cell Distribution Width 13.4, Platelet Count 175, Mean Platelet Volume 6.7, Neutrophils (%) (Auto) 80.7H, Lymphocytes (%) (Auto) 11.9L, Monocytes (%) (Auto) 7.1, Eosinophils (%) (Auto) 0.0, Basophils (%) (Auto) 0.3, Sodium Level 132L, Potassium Level 4.3, Chloride Level 98, Carbon Dioxide Level 27, Anion Gap 7, Blood Urea Nitrogen 27H, Creatinine 1.2, Estimat Glomerular Filtration Rate > 60, Glucose Level 104, Calcium Level 7.9L, Total Bilirubin 0.7, Aspartate Amino Transf (AST/SGOT) 42H, Alanine Aminotransferase (ALT/SGPT) 53, Alkaline Phosphatase 49, Pro-B-Type Natr iuretic Peptide [Pending], Total Protein 7.1, Albumin 2.8L, Globulin 4.3, Albumin/Globulin Ratio 0.7L, HIV (1&2) Antibody Rapid [Pending] Current Medications Medications (Trade) Dose Ordered Sig/Dennis Route PRN Reason Start Time Stop Time Status Last Admin Dose Admin Acetaminophen (Tylenol) 650 mg Q4H PRN ORAL Temp >100.5 02/05/20 13:15 03/06/20 13:14 02/18/20 00:16 Acetaminophen (Tylenol) 650 mg Q4H PRN ORAL Pain (1-3) 02/09/20 08:30 03/10/20 08:29 02/09/20 08:25 Amlodipine Besylate (Norvasc) 5 mg BID ORAL 02/10/20 09:00 03/11/20 08:59 02/18/20 17:25 Bisacodyl (Dulcolax) 10 mg HSPRN PRN RECTAL Constipation 02/05/20 13:15 05/05/20 13:14 Chlorhexidine Gluconate (Marlen-Hex 2%) 1 applic DAILY@1999 TOPIC 02/14/20 20:00 05/14/20 19:59 02/17/20 20:24 Dextrose (Dextrose 50%) 25 ml Q30M PRN IV Hypoglycemia 02/05/20 13:15 05/05/20 13:14 Dextrose (Dextrose 50%) 50 ml Q30M PRN IV Hypoglycemia 02/05/20 13:15 05/05/20 13:14 Enoxaparin Sodium (Lovenox) 40 mg DAILY SUBQ 02/05/20 15:00 05/05/20 14:59 02/18/20 08:48 Guaifenesin/ Dextromethorphan (Robitussin DM Syrup) 10 ml Q6H PRN ORAL For Cough 02/16/20 14:15 05/16/20 14:14 02/16/20 22:37 Hydralazine HCl (Apresoline) 50 mg Q6HR ORAL 02/17/20 19:30 05/17/20 19:29 02/18/20 17:25 Ibuprofen (Motrin) 600 mg TIDPRN PRN ORAL Breakthrough Pain 02/17/20 19:30 03/18/20 19:29 02/18/20 10:17 Lisinopril (PriniviL) 20 mg Q12HR ORAL 02/17/20 19:30 03/18/20 19:29 02/18/20 08:47 Magnesium Hydroxide (Mom) 30 ml HSPRN PRN ORAL Constipation 02/05/20 13:15 03/06/20 13:14 Nitroglycerin (Ntg) 0.4 mg Q5M PRN SL Prn Chest Pain 02/05/20 06:15 03/06/20 06:14 02/12/20 17:40 Ondansetron HCl (Zofran) 4 mg Q6H PRN IVP Nausea & Vomiting 02/05/20 13:15 03/06/20 13:14 Pantoprazole (Protonix) 40 mg DAILY ORAL 02/06/20 09:00 03/07/20 08:59 02/18/20 08:47 Piperacillin Sod/ Tazobactam Sod 3.375 gm/Dextrose 100 ml @ 25 mls/hr EVERY 8 HOURS IVPB 02/18/20 22:00 02/23/20 21:59 Polyethylene Glycol (Miralax) 17 gm HSPRN PRN ORAL Constipation 02/05/20 13:15 03/06/20 13:14 Vancomycin HCl 250 ml @ 166.667 mls/hr Q12HR@0800,2000 IVPB 02/18/20 20:00 02/23/20 19:59 Vancomycin HCl (Vanco pharmacy to dose) 1 ea DAILY PRN MISC Per rx protocol 02/18/20 17:00 03/19/20 16:59 Assessment/Plan Assessment/Plan 1. High suspicion for COVID-19 pneumonia. - s/p decadron - last COVID-19 test positive after two negative tests - CTA 02/05/2020 ground-glass and consolidating infiltrates in the dependent portions of both lower lobes and to lesser degree the upper lobes consistent with bilateral pneumonia. No evidence of pulmonary embolus. - now on 15L NRB - Mycoplasma pneumoniae IgG 273; M. pneumoniae IgM titer within normal limits - CXR 02/17/2020 worsening bilateral infiltrates over one day - Has fever overnight with increased SOB - D-dimer ordered, if elevated consider CTA 2. Initial negative rapid COVID-19 gene assay.- however repeat COVID-19 test positive 3. Smoker. 4. DVT ppx - on lovenox 5. Hypertension - on hydralazine, and norvasc - On cardiac diet 6. Blood culture positive for gram positive cocci staph aureus - on Abx - CT abd/pelvis showed no abscess per ID - TTE/ FERNY held off due to COVID-19 status - PICC line in place We will follow carefully. The care for this patient was discussed with my supervising physician. Time spent for this case was approximately 31 minutes. Edilson Marinelli Feb 18, 2020 17:35
--- NOTE | 2020-02-18 18:19 | NUR ---
NURSE NOTES: Called and left a voicemail for Dr. Mata, patient spO2 88% on nonrebreather 15L. Awaiting response.
--- NOTE | 2020-02-18 18:21 | NUR ---
NURSE NOTES: Called respiratory therapist. Respiratory therapist on the way.
--- NOTE | 2020-02-18 18:30 | NUR ---
NURSE NOTES: Dr. Mata notified and he called to give the order to stat transfer to [facility] and Bipap. I requested to order an ABG and he refused. Noted and will carry out.
--- NOTE | 2020-02-18 18:46 | NUR ---
NURSE NOTES: Gathered all patient's belongings and reasdy for transfer once a room becomes available in [facility]. Respiratory therapist bedside, spO2 91%.
--- NOTE | 2020-02-18 18:52 | NUR ---
RESPIRATORY NOTE: WAITED FOR NEW ORDER FROM MD. SUGGESTED BLOOD GAS AND HIGH FLOW OR BIPAP EARLIER DUE TO DESATURATION. MD STATED TO KEEP HIM ON NRB MASK . HIS SPO2 WAS 88 TO 92 ON THIS SETUP. MD GAVE ORDER FOR BIPAP AT THIS TIME BUT NO ORDER FOR ABG.
--- NOTE | 2020-02-18 18:58 | NUR ---
NURSE NOTES: Patient was put on a nonrebreather. spO2 100%. Respirations 20. Alert and oriented to baseline x4.
--- NOTE | 2020-02-18 19:03 | NUR ---
RESPIRATORY NOTES: Pt now on Bipap facial mask with settings 18/6 /R16/ 100%, saturating 92%. pt is tachy breathing noted. bipap not plugged into red outlet, PRIYANKA Engle aware and awaiting for pt transfer. alarms are on and audible. will continue to monitor pt.
--- NOTE | 2020-02-18 19:20 | NUR ---
NURSE HAND-OFF REPORT: Important Events on Shift: oxygen desaturation to 84%-91%, Dr. Mata aware but no new orders were given until last hour; transfer order to [facility] put in but no room availe at this time. Patient Status: full code Diet: cardiac Pending Orders: [] Pending Results/Labs:[] Pending MD notification:[] Latest Vital Signs: Temperature 98.6 , Pulse 79 , B/P 129 /79 , Respiratory Rate 37 , O2 SAT 92 , Room Air, O2 Flow Rate 4.0 . Vital Sign Comment: [] EKG Rhythm: Sinus Rhythm Rhythm change?: N Notified?: N -Dr. Emperatriz INTERIANO Response: Message left await call Latest Hassan Fall Score: 20 Fall Risk: Low Risk Safety Measures: Call light Within Reach, Bed Alarm Zone 1, Side Rails Side Rails x2, Bed position Low and Locked. Fall Precautions: Yellow Socks Patient Fall Education Report given to PRIYANKA Muñiz.
--- NOTE | 2020-02-18 19:27 | NUR ---
NURSE NOTES: Patient received from PRIYANKA Gamez. Patient is currently sleeping but arousable. Patient is on continuous bipap 18/6 at 100% FiO2. Patient has a left forearm 20 gauge, patent and flushed. There is a urinal noted on bedside. Patient has a PICC line on his left upper arm and is intact. Patient has an order to transfer to [facility] per MD, patient is aware that he is going to be transferred. Bed is in the lowest position and locked, call light within reach. Will Continue to monitor.
--- NOTE | 2020-02-18 19:34 | Cardiology Progress Note ---
Assessment/Plan Assessment/Plan Acute covid 19 pneumonia chest pain possible M/S infiltrate bilat bacteremia drug free for 28 years his of ivda echo normal wall motion last week ct finding reportedly highly suggestive of covid 19 3rd test positive for covid after initial 2 were neg d/w rn ekg reviwed no st or t wave changes cxr reproted to plook worse onteh righ side bnp still pendign d/w chem lab reagent finished [facility] cr up little if probnp abn will order lasix as well whiel on bipap Subjective Subjective pt now in covid 19 isolation per pulm no on bipap Objective Last 24 Hour Vital Signs Date Time Temp Pulse Resp B/P (MAP) Pulse Ox O2 Delivery O2 Flow Rate FiO2 02/18/20 18:59 79 37 92 100 02/18/20 17:25 129/79 02/18/20 17:25 85 129/79 02/18/20 16:00 98.6 85 23 129/79 (96) 94 02/18/20 16:00 70 02/18/20 13:53 125/80 02/18/20 12:30 95 23 92 02/18/20 12:00 83 02/18/20 10:47 97.5 02/18/20 09:00 Nasal Cannula 4.0 02/18/20 08:47 138/80 02/18/20 08:47 94 138/80 02/18/20 08:00 97.5 94 22 138/80 (99) 94 02/18/20 08:00 84 02/18/20 05:52 100.0 02/18/20 05:22 118/70 02/18/20 04:00 81 02/18/20 04:00 100.0 85 28 118/70 (86) 92 02/18/20 00:46 97.7 02/18/20 00:16 147/85 02/18/20 00:00 100.6 97 24 147/85 (105) 92 02/18/20 00:00 102 02/17/20 21:00 Nasal Cannula 4.0 02/17/20 20:54 148/91 02/17/20 20:24 148/91 02/17/20 20:00 98.8 102 22 148/91 (110) 92 02/17/20 20:00 100 Intake and Output 02/17/20 02/18/20 19:00 07:00 Intake Total 650 ml 360 ml Output Total 450 ml Balance 200 ml 360 ml Intake Oral 650 ml Other 360 ml Output Urine Total 450 ml # Voids 2 Laboratory Tests Test 02/17/20 21:35 02/18/20 06:00 02/18/20 17:45 Troponin I 0.018 ng/mL (0.000-0.056) 0.018 ng/mL (0.000-0.056) White Blood Count 8.0 K/UL (4.8-10.8) Red Blood Count 5.39 M/UL (4.70-6.10) Hemoglobin 15.2 G/DL (14.2-18.0) Hematocrit 44.7 % (42.0-52.0) Mean Corpuscular Volume 83 FL (80-99) Mean Corpuscular Hemoglobin 28.3 PG (27.0-31.0) Mean Corpuscular Hemoglobin Concent 34.1 G/DL (32.0-36.0) Red Cell Distribution Width 13.4 % (11.6-14.8) Platelet Count 175 K/UL (150-450) Mean Platelet Volume 6.7 FL (6.5-10.1) Neutrophils (%) (Auto) 80.7 % (45.0-75.0) H Lymphocytes (%) (Auto) 11.9 % (20.0-45.0) L Monocytes (%) (Auto) 7.1 % (1.0-10.0) Eosinophils (%) (Auto) 0.0 % (0.0-3.0) Basophils (%) (Auto) 0.3 % (0.0-2.0) Sodium Level 132 MMOL/L (136-145) L Potassium Level 4.3 MMOL/L (3.5-5.1) Chloride Level 98 MMOL/L (98-107) Carbon Dioxide Level 27 MMOL/L (21-32) Anion Gap 7 mmol/L (5-15) Blood Urea Nitrogen 27 mg/dL (7-18) H Creatinine 1.2 MG/DL (0.55-1.30) Estimat Glomerular Filtration Rate > 60 mL/min (>60) Glucose Level 104 MG/DL (74-106) Calcium Level 7.9 MG/DL (8.5-10.1) L Total Bilirubin 0.7 MG/DL (0.2-1.0) Aspartate Amino Transf (AST/SGOT) 42 U/L (15-37) H Alanine Aminotransferase (ALT/SGPT) 53 U/L (12-78) Alkaline Phosphatase 49 U/L (46-116) Pro-B-Type Natriuretic Peptide Pending Total Protein 7.1 G/DL (6.4-8.2) Albumin 2.8 G/DL (3.4-5.0) L Globulin 4.3 g/dL Albumin/Globulin Ratio 0.7 (1.0-2.7) L Coccidioides Antibody (Comp Fix) Pending HIV (1&2) Antibody Rapid Negative (NEGATIVE) Microbiology Date/Time Source Procedure Growth Status 02/17/20 19:00 Urine,Clean Catch Urine Culture - Preliminary NO GROWTH Resulted Objective pt in covid 19 isoaltion with acute infection per id Respiratory/Chest: crackles/rales, rhonchi - bilaterally Cardiovascular: normal rate, regular rhythm, no gallop/murmur Abdomen: normal bowel sounds, soft, non tender, no organomegaly, non distended Genitourinary: other - no joseph Extremities: no cyanosis Manan Awan MD Feb 18, 2020 19:34
[2020-02-18 20:00] VITALS: BP 143/85
[2020-02-18] MEDS: Dyna-Hex 2% Top Sol 2oz TOPIC SCH (20:48)
[2020-02-18] MEDS: Vancomycin 1.25gm/250ml Premix IVPB SCH (20:48)
--- NOTE | 2020-02-18 21:45 | NUR ---
NURSE HAND-OFF REPORT: Important Events on Shift:[Patient transferred to SDU with no issues. Discussed belonging list with receiving RN.] Patient Status: [Stable] Diet: [Cardiac diet] Pending Orders: [] Pending Results/Labs:[] Pending MD notification:[] Latest Vital Signs: Temperature 100.2 , Pulse 75 , B/P 143 /85 , Respiratory Rate 45 , O2 SAT 90 , Room Air, O2 Flow Rate 4.0 . Vital Sign Comment: [] EKG Rhythm: Sinus Rhythm Rhythm change?: N Notified?: N -Dr. Emperatriz INTERIANO Response: Message left await call Latest Hassan Fall Score: 20 Fall Risk: Low Risk Safety Measures: Call light Within Reach, Bed Alarm Zone 1, Side Rails Side Rails x2, Bed position Low and Locked. Fall Precautions: Yellow Socks Patient Fall Education Report given to [Natalya, RN].
--- NOTE | 2020-02-18 21:57 | NUR ---
NURSE NOTES: Received report from Tahmina Mock Tele. Pt a/o x 4. Verbally responsive and able to make needs known. On bipap tolerating current setting, saturating @ 98%. Sob noted on exertion. Iv sites on L forearm #20 SL, and PICC line on L upper arm, intact, patent and flushed well. Skin is intact. Belongings checked with TAHMINA MOCK, wallet is present but patient refused to go through it. Charge nurse made aware about the belongings. Safety measures in place, bed in lowest positioned, call light within reach. Bed alarm activated. Reminded pt to use the call light button for any assistance. Will continue to monitor and plan of care.
[2020-02-19] VITALS: BP 130/82
--- NOTE | 2020-02-19 00:28 | NUR ---
NURSE NOTES: Patient sleeping in bed, in no apparent respiratory and cardiac distress noted. Will continue to monitor.
--- NOTE | 2020-02-19 02:10 | NUR ---
NURSE NOTES: Pt requested to be off bipap, explained risks and benefits of having it on but pt insisted not to put it on. Charge nurse made aware and called RT for assistance.
--- NOTE | 2020-02-19 02:17 | NUR ---
NURSE NOTES: Pt is currently on non-rebreather. Per Rt patient insisted to be off. Currently saturating @93%.
[2020-02-19 02:20] LABS: APPEARANCE,URINE SLIGHTLY CLOUDY; BILIRUBIN, URINE NEGATIVE (NEGATIVE); GLUCOSE, URINE (UA) NEGATIVE (NEGATIVE); KETONES,URINE 1+ (NEGATIVE); LEUKOCYTE ESTERASE ,URINE NEGATIVE (NEGATIVE); NITRITE,URINE NEGATIVE (NEGATIVE); PH,URINE 5 (4.5-8.0); PROTEIN,URINE 2+ (NEGATIVE); UROBILINOGEN,URINE 1 MG/DL (0.0-1.0)
[2020-02-19 02:44] LABS: COLOR,URINE YELLOW
[2020-02-19 04:00] VITALS: BP 132/73
--- NOTE | 2020-02-19 04:13 | NUR ---
NURSE NOTES: Noted pt was off of his non-rebreather mask when I did my rounds and saturation was 87%. Reminded pt the importance of keeping it on all the time, verbalizes understanding and stated that he just wanted to breath without it.
[2020-02-19 04:36] LABS: HEMATOCRIT 45.8 % (42.0-52.0); HEMOGLOBIN 16.1 G/DL (14.2-18.0); MEAN CORPUSCULAR VOLUME 82 FL (80-99); PLATELET COUNT 180 K/UL (150-450); RED CELL DISTRIBUTION WIDTH 13.7 % (11.6-14.8)
[2020-02-19 05:08] LABS: ALBUMIN 2.8 G/DL (3.4-5.0); ALBUMIN/GLOBULIN RATIO 0.6 (1.0-2.7); BILIRUBIN,TOTAL 0.7 MG/DL (0.2-1.0); CALCIUM 8.3 MG/DL (8.5-10.1); CREATININE 1.4 MG/DL (0.55-1.30); POTASSIUM 3.9 MMOL/L (3.5-5.1)
[2020-02-19] MEDS: HydrALAZINE 50mg tab ORAL SCH ×4 (05:41→23:46)
--- NOTE | 2020-02-19 07:20 | NUR ---
NURSE NOTES: Received patient from PRIYANKA Viramontes. Patient is awake in bed on the phone. AO x4. sinus rhythm on the monitor. Left upper arm PICC dry and intact running zosyn. on NRB 15L, but patient currently refusing to put it on because he is trying to make a phone call. Saturation 57%. asked patient to put it on and educated patient about importance of keeping mask on, patient refused.
--- NOTE | 2020-02-19 07:24 | NUR ---
NURSE HAND-OFF REPORT: Important Events on Shift: Stable Patient Status: Stable Diet: Cardiac Pending Orders: Pending Results/Labs: Pending MD notification: Latest Vital Signs: Temperature 99.9 , Pulse 86 , B/P 132 /73 , Respiratory Rate 23 , O2 SAT 91 , Room Air, O2 Flow Rate 4.0 . Vital Sign Comment: Stable EKG Rhythm: Sinus Rhythm Rhythm change?: N MD Notified?: MD Response: Latest Hassan Fall Score: 20 Fall Risk: Low Risk Safety Measures: Call light Within Reach, Bed Alarm Zone 1, Side Rails Side Rails x2, Bed position Low and Locked. Fall Precautions: Yellow Socks Patient Fall Education Report given to Tahmina Espinosa.
--- NOTE | 2020-02-19 07:25 | NUR ---
NURSE HAND-OFF REPORT: Important Events on Shift: CT scan done Patient Status: FULL CODE Diet: cardiac Pending Orders: [] Pending Results/Labs:[] Pending MD notification:[] Latest Vital Signs: Temperature 98.1 , Pulse 75 , B/P 123 /82 , Respiratory Rate 26 , O2 SAT 90 , Room Air, O2 Flow Rate 15.0 . Vital Sign Comment: stable EKG Rhythm: Sinus Rhythm Rhythm change?: N MD Notified?: N -Dr. Emperatriz INTERIANO Response: Message left await call Latest Hassan Fall Score: 20 Fall Risk: Low Risk Safety Measures: Call light Within Reach, Bed Alarm Zone 1, Side Rails Side Rails x2, Bed position Low and Locked. Fall Precautions: Yellow Socks Patient Fall Education Report given to PRIYANKA Jensen.
[2020-02-19 08:00] VITALS: BP 112/69
--- NOTE | 2020-02-19 08:00 | NUR ---
RESPIRATORY NOTE: Received pt on NRB 100% SaO2 89%. Suggested to pt to wear bipap to increase SaO2, but pt refused. Explained the importance of bipap and oxygen, pt still refused. PRIYANKA Espinosa aware.
[2020-02-19] MEDS: Vancomycin 1.25gm/250ml Premix IVPB SCH (08:54)
[2020-02-19] MEDS: Lisinopril 20mg tab ORAL SCH (09:00)
[2020-02-19] MEDS: Enoxaparin 40mg Inj SUBQ SCH (09:46)
--- NOTE | 2020-02-19 11:35 | NUR ---
NURSE NOTES: patient is on the side of the bed dangling feet. NRB is off per patient changed position and came off. RT at bedside set up a new NRB saturation 95%. Patient complains of chest pain, refused nitroglycerin, ibuprofen given.
[2020-02-19 12:00] VITALS: BP 139/80
--- NOTE | 2020-02-19 12:23 | Cardiology Progress Note ---
Assessment/Plan Assessment/Plan Acute covid 19 pneumonia chest pain possible M/S infiltrate bilat bacteremia drug free for 28 years his of ivda echo normal wall motion last week ct finding reportedly highly suggestive of covid 19 3rd test positive for covid after initial 2 were neg d/w rn and dr rodriguez ekg reviwed no st or t wave changes will repat anothe rekg tomorrow d/w dr fry will nto do ctpa due to renal insuf emprirclly trate for PE until cr improves then consider in light of cr up more bnp normal yeas os i did not order diureitc unlikely cardaic related will repat labs itn am Subjective ROS Limited/Unobtainable: Yes Subjective pt now in covid 19 isolation refused to put onthe bipap Objective Last 24 Hour Vital Signs Date Time Temp Pulse Resp B/P (MAP) Pulse Ox O2 Delivery O2 Flow Rate FiO2 02/19/20 12:00 86 02/19/20 12:00 97.2 96 27 139/80 (99) 95 02/19/20 09:00 112/69 02/19/20 09:00 80 112/69 02/19/20 09:00 Non-Rebreather 15.0 02/19/20 08:00 83 02/19/20 08:00 97.9 80 21 112/69 (83) 94 02/19/20 08:00 78 24 89 Non-Rebreather 15.0 100 02/19/20 08:00 89 Non-Rebreather 15.0 100 02/19/20 05:41 132/73 02/19/20 04:00 99.9 86 23 132/73 (92) 91 02/19/20 03:28 87 02/19/20 00:00 99.0 88 27 130/82 (98) 94 02/18/20 23:59 78 02/18/20 23:58 130/82 02/18/20 22:42 85 33 94 93 02/18/20 21:43 75 45 90 100 02/18/20 21:00 Bi-pap 02/18/20 20:52 143/85 02/18/20 20:00 74 02/18/20 20:00 100.2 81 26 143/85 (104) 95 02/18/20 18:59 79 37 92 100 02/18/20 17:25 129/79 02/18/20 17:25 85 129/79 02/18/20 16:00 98.6 85 23 129/79 (96) 94 02/18/20 16:00 70 02/18/20 13:53 125/80 02/18/20 12:30 95 23 92 Intake and Output 02/18/20 02/19/20 19:00 07:00 Intake Total 390 ml 850 ml Output Total 400 ml Balance 390 ml 450 ml Intake Oral 390 ml 500 ml IV Total 350 ml Output Urine Total 400 ml # Voids 2 # Bowel Movements 2 Laboratory Tests Test 02/18/20 17:45 02/19/20 01:30 02/19/20 03:50 02/19/20 08:02 Coccidioides Antibody (Comp Fix) Pending HIV (1&2) Antibody Rapid Negative (NEGATIVE) Urine Color Yellow Urine Appearance Slightly cloudy Urine pH 5 (4.5-8.0) Urine Specific [place] 1.015 (1.005-1.035) Urine Protein 2+ (NEGATIVE) H Urine Glucose (UA) Negative (NEGATIVE) Urine Ketones 1+ (NEGATIVE) H Urine Blood 1+ (NEGATIVE) H Urine Nitrite Negative (NEGATIVE) Urine Bilirubin Negative (NEGATIVE) Urine Urobilinogen 1 MG/DL (0.0-1.0) H Urine Leukocyte Esterase Negative (NEGATIVE) Urine RBC 0-2 /HPF (0 - 0) H Urine WBC 0-2 /HPF (0 - 0) Urine Squamous Epithelial Cells Few /LPF (NONE/OCC) Urine Bacteria Occasional /HPF (NONE) Urine Hyaline Casts 0-2 /LPF (NONE) H Urine Granular Casts 0-2 /LPF (NONE) H Urine Legionella Antigen Pending White Blood Count 9.0 K/UL (4.8-10.8) Red Blood Count 5.60 M/UL (4.70-6.10) Hemoglobin 16.1 G/DL (14.2-18.0) Hematocrit 45.8 % (42.0-52.0) Mean Corpuscular Volume 82 FL (80-99) Mean Corpuscular Hemoglobin 28.8 PG (27.0-31.0) Mean Corpuscular Hemoglobin Concent 35.2 G/DL (32.0-36.0) Red Cell Distribution Width 13.7 % (11.6-14.8) Platelet Count 180 K/UL (150-450) Mean Platelet Volume 6.9 FL (6.5-10.1) Neutrophils (%) (Auto) % (45.0-75.0) Lymphocytes (%) (Auto) % (20.0-45.0) Monocytes (%) (Auto) % (1.0-10.0) Eosinophils (%) (Auto) % (0.0-3.0) Basophils (%) (Auto) % (0.0-2.0) Differential Total Cells Counted 100 Neutrophils % (Manual) 90 % (45-75) H Lymphocytes % (Manual) 7 % (20-45) L Monocytes % (Manual) 3 % (1-10) Eosinophils % (Manual) 0 % (0-3) Basophils % (Manual) 0 % (0-2) Band Neutrophils 0 % (0-8) Platelet Estimate Adequate Platelet Morphology Normal Red Blood Cell Morphology Normal D-Dimer 0.90 mg/L FEU (0.00-0.49) H Sodium Level 134 MMOL/L (136-145) L Potassium Level 3.9 MMOL/L (3.5-5.1) Chloride Level 100 MMOL/L (98-107) Carbon Dioxide Level 27 MMOL/L (21-32) Anion Gap 7 mmol/L (5-15) Blood Urea Nitrogen 40 mg/dL (7-18) H Creatinine 1.4 MG/DL (0.55-1.30) H Estimat Glomerular Filtration Rate 51.4 mL/min (>60) Glucose Level 106 MG/DL (74-106) Calcium Level 8.3 MG/DL (8.5-10.1) L Total Bilirubin 0.7 MG/DL (0.2-1.0) Aspartate Amino Transf (AST/SGOT) 45 U/L (15-37) H Alanine Aminotransferase (ALT/SGPT) 46 U/L (12-78) Alkaline Phosphatase 53 U/L (46-116) Total Protein 7.2 G/DL (6.4-8.2) Albumin 2.8 G/DL (3.4-5.0) L Globulin 4.4 g/dL Albumin/Globulin Ratio 0.6 (1.0-2.7) L Arterial Blood pH 7.415 (7.350-7.450) Arterial Blood Partial Pressure CO2 33.2 mmHg (35.0-45.0) L Arterial Blood Partial Pressure O2 55.6 mmHg (75.0-100.0) L Arterial Blood HCO3 20.8 mmol/L (22.0-26.0) L Arterial Blood Oxygen Saturation 89.8 % (95-100) *L Arterial Blood Base Excess -2.8 (-2-2) L Shemar Test Positive Microbiology Date/Time Source Procedure Growth Status 02/17/20 19:00 Urine,Clean Catch Urine Culture - Preliminary NO GROWTH AFTER 24 HOURS Resulted 02/17/20 16:00 Blood Blood Culture - Preliminary NO GROWTH AFTER 24 HOURS Resulted 02/17/20 16:00 Blood Blood Culture - Preliminary NO GROWTH AFTER 24 HOURS Resulted Objective pt in covid 19 isoaltion with acute infection per id Respiratory/Chest: crackles/rales, rhonchi - bilaterally Cardiovascular: normal rate, regular rhythm, no gallop/murmur Abdomen: normal bowel sounds, soft, non tender, no organomegaly, non distended Genitourinary: other - no joseph Extremities: no cyanosis Manan Awan MD Feb 19, 2020 12:23
--- NOTE | 2020-02-19 13:00 | NUR ---
RESPIRATORY NOTE: Tried to explain the importance of oxygen saturation and bipap, pt still refused to be on bipap.
--- NOTE | 2020-02-19 13:12 | Infectious Diseases Prog Note ---
Assessment/Plan Assessment/Plan ASSESSMENT AND PLAN: 1. staph aureus bacteremia/mssa, ? source, ? endocarditis, sepsis, leukocytosis, ? CAP covid-19 +, hypoxia, sob, chest x-ray worse, ? PE, ? HCAP/aspiration pna - zosyn and vancomycin - day # 11 post negative surveillance blood cultures, will need at least 2 weeks ancef post-neg blood cultures for MSSA bacteremia - restart dexamethasone and start remdesivir for worsening hypoxia - CT abdomen and pelvis without abscess - f/u on TTE, FERNY held secondary to + covid-19 test - may do as outpatient - monitor labs, f/u on repeat cultures - d/w with Dr. Mata - f/u CT chest to be ordered 2. covid-19 isolation 3. Hypertension history. Blood pressure treatment primary care team. 4. Elevated blood sugars. Blood sugar treatment per primary care team. 5. No known drug allergies. 6. Social history is positive for smoking. 7. Family history is noncontributory. 8. MAR was noted. 9. Case was discussed with RN. 10. Continue treatment per primary consultants. Subjective Constitutional: Reports: fever, fatigue, other - sob, on NR O2 HEENT: Reports: congestion Respiratory: Reports: shortness of breath Cardiovascular: Denies: chest pain Gastrointestinal/Abdominal: Denies: nausea Genitourinary: Denies: dysuria, hematuria Allergies: Coded Allergies: No Known Allergies (Unverified , 02/05/20) Objective Last 24 Hour Vital Signs Date Time Temp Pulse Resp B/P (MAP) Pulse Ox O2 Delivery O2 Flow Rate FiO2 02/19/20 12:50 133/74 02/19/20 12:00 86 02/19/20 12:00 97.2 96 27 139/80 (99) 95 02/19/20 09:00 112/69 02/19/20 09:00 80 112/69 02/19/20 09:00 Non-Rebreather 15.0 02/19/20 08:00 83 02/19/20 08:00 97.9 80 21 112/69 (83) 94 02/19/20 08:00 78 24 89 Non-Rebreather 15.0 100 02/19/20 08:00 89 Non-Rebreather 15.0 100 02/19/20 05:41 132/73 02/19/20 04:00 99.9 86 23 132/73 (92) 91 02/19/20 03:28 87 02/19/20 00:00 99.0 88 27 130/82 (98) 94 02/18/20 23:59 78 02/18/20 23:58 130/82 02/18/20 22:42 85 33 94 93 02/18/20 21:43 75 45 90 100 02/18/20 21:00 Bi-pap 02/18/20 20:52 143/85 02/18/20 20:00 74 02/18/20 20:00 100.2 81 26 143/85 (104) 95 02/18/20 18:59 79 37 92 100 02/18/20 17:25 129/79 02/18/20 17:25 85 129/79 02/18/20 16:00 98.6 85 23 129/79 (96) 94 02/18/20 16:00 70 02/18/20 13:53 125/80 Height (Feet): 5 Height (Inches): 10.00 Weight (Pounds): 240 General Appearance: no acute distress HEENT: normocephalic, atraumatic, anicteric, mucous membranes moist Respiratory/Chest: crackles/rales, rhonchi - bilaterally Cardiovascular: normal rate, regular rhythm Abdomen: soft, non tender, no organomegaly CT chest: IMPRESSION: There are mild subpleural ground-glass and consolidating infiltrates in the dependent portions of both lower lobes and to lesser degree the upper lobes consistent with bilateral pneumonia. The infiltrates are typical for Covid 19. No evidence of pulmonary embolus. CT abdomen and pelvis: IMPRESSION: 1. Scattered hepatic hypodense lesions, too small to characterize on this examination without intravenous contrast. 2. Colonic diverticulosis without evidence of acute diverticulitis. 3. Scattered enlarged mesenteric lymph nodes, presumably reactive. teral pneumonia. The infiltrates are typical for Covid 19. No evidence of pulmonary embolus. Chest x-ray - 12/19/19 - Indication: Shortness of breath Technique: One view of the chest Comparison: 02/17/2020 Findings: Interim worsening of bilateral infiltrates, particularly on the right. The heart is borderline enlarged. The pleural spaces are clear. Left arm PICC is again demonstrated Impression: Worsening bilateral infiltrates over one day, likely pneumonia Microbiology Date/Time Source Procedure Growth Status 02/17/20 19:00 Urine,Clean Catch Urine Culture - Preliminary NO GROWTH AFTER 24 HOURS Resulted 02/17/20 16:00 Blood Blood Culture - Preliminary NO GROWTH AFTER 24 HOURS Resulted 02/17/20 16:00 Blood Blood Culture - Preliminary NO GROWTH AFTER 24 HOURS Resulted Laboratory Tests Test 02/18/20 17:45 02/19/20 01:30 02/19/20 03:50 02/19/20 08:02 Coccidioides Antibody (Comp Fix) Pending HIV (1&2) Antibody Rapid Negative (NEGATIVE) Urine Color Yellow Urine Appearance Slightly cloudy Urine pH 5 (4.5-8.0) Urine Specific [place] 1.015 (1.005-1.035) Urine Protein 2+ (NEGATIVE) H Urine Glucose (UA) Negative (NEGATIVE) Urine Ketones 1+ (NEGATIVE) H Urine Blood 1+ (NEGATIVE) H Urine Nitrite Negative (NEGATIVE) Urine Bilirubin Negative (NEGATIVE) Urine Urobilinogen 1 MG/DL (0.0-1.0) H Urine Leukocyte Esterase Negative (NEGATIVE) Urine RBC 0-2 /HPF (0 - 0) H Urine WBC 0-2 /HPF (0 - 0) Urine Squamous Epithelial Cells Few /LPF (NONE/OCC) Urine Bacteria Occasional /HPF (NONE) Urine Hyaline Casts 0-2 /LPF (NONE) H Urine Granular Casts 0-2 /LPF (NONE) H Urine Legionella Antigen Pending White Blood Count 9.0 K/UL (4.8-10.8) Red Blood Count 5.60 M/UL (4.70-6.10) Hemoglobin 16.1 G/DL (14.2-18.0) Hematocrit 45.8 % (42.0-52.0) Mean Corpuscular Volume 82 FL (80-99) Mean Corpuscular Hemoglobin 28.8 PG (27.0-31.0) Mean Corpuscular Hemoglobin Concent 35.2 G/DL (32.0-36.0) Red Cell Distribution Width 13.7 % (11.6-14.8) Platelet Count 180 K/UL (150-450) Mean Platelet Volume 6.9 FL (6.5-10.1) Neutrophils (%) (Auto) % (45.0-75.0) Lymphocytes (%) (Auto) % (20.0-45.0) Monocytes (%) (Auto) % (1.0-10.0) Eosinophils (%) (Auto) % (0.0-3.0) Basophils (%) (Auto) % (0.0-2.0) Differential Total Cells Counted 100 Neutrophils % (Manual) 90 % (45-75) H Lymphocytes % (Manual) 7 % (20-45) L Monocytes % (Manual) 3 % (1-10) Eosinophils % (Manual) 0 % (0-3) Basophils % (Manual) 0 % (0-2) Band Neutrophils 0 % (0-8) Platelet Estimate Adequate Platelet Morphology Normal Red Blood Cell Morphology Normal D-Dimer 0.90 mg/L FEU (0.00-0.49) H Sodium Level 134 MMOL/L (136-145) L Potassium Level 3.9 MMOL/L (3.5-5.1) Chloride Level 100 MMOL/L (98-107) Carbon Dioxide Level 27 MMOL/L (21-32) Anion Gap 7 mmol/L (5-15) Blood Urea Nitrogen 40 mg/dL (7-18) H Creatinine 1.4 MG/DL (0.55-1.30) H Estimat Glomerular Filtration Rate 51.4 mL/min (>60) Glucose Level 106 MG/DL (74-106) Calcium Level 8.3 MG/DL (8.5-10.1) L Total Bilirubin 0.7 MG/DL (0.2-1.0) Aspartate Amino Transf (AST/SGOT) 45 U/L (15-37) H Alanine Aminotransferase (ALT/SGPT) 46 U/L (12-78) Alkaline Phosphatase 53 U/L (46-116) Total Protein 7.2 G/DL (6.4-8.2) Albumin 2.8 G/DL (3.4-5.0) L Globulin 4.4 g/dL Albumin/Globulin Ratio 0.6 (1.0-2.7) L Arterial Blood pH 7.415 (7.350-7.450) Arterial Blood Partial Pressure CO2 33.2 mmHg (35.0-45.0) L Arterial Blood Partial Pressure O2 55.6 mmHg (75.0-100.0) L Arterial Blood HCO3 20.8 mmol/L (22.0-26.0) L Arterial Blood Oxygen Saturation 89.8 % (95-100) *L Arterial Blood Base Excess -2.8 (-2-2) L Shemar Test Positive Current Medications Medications (Trade) Dose Ordered Sig/Dennis Route PRN Reason Start Time Stop Time Status Last Admin Dose Admin Acetaminophen (Tylenol) 650 mg Q4H PRN ORAL Temp >100.5 02/05/20 13:15 03/06/20 13:14 02/18/20 00:16 Acetaminophen (Tylenol) 650 mg Q4H PRN ORAL Pain (1-3) 02/09/20 08:30 03/10/20 08:29 02/18/20 22:40 Amlodipine Besylate (Norvasc) 5 mg BID ORAL 02/10/20 09:00 03/11/20 08:59 02/18/20 17:25 Bisacodyl (Dulcolax) 10 mg HSPRN PRN RECTAL Constipation 02/05/20 13:15 05/05/20 13:14 Chlorhexidine Gluconate (Marlen-Hex 2%) 1 applic DAILY@2000 TOPIC 02/14/20 20:00 05/14/20 19:59 02/18/20 20:48 Dextrose (Dextrose 50%) 25 ml Q30M PRN IV Hypoglycemia 02/05/20 13:15 05/05/20 13:14 Dextrose (Dextrose 50%) 50 ml Q30M PRN IV Hypoglycemia 02/05/20 13:15 05/05/20 13:14 Enoxaparin Sodium (Lovenox) 110 mg EVERY 12 HOURS SUBQ 02/19/20 21:00 05/19/20 20:59 Guaifenesin/ Dextromethorphan (Robitussin DM Syrup) 10 ml Q6H PRN ORAL For Cough 02/16/20 14:15 05/16/20 14:14 02/16/20 22:37 Hydralazine HCl (Apresoline) 50 mg Q6HR ORAL 02/17/20 19:30 05/17/20 19:29 02/19/20 12:50 Ibuprofen (Motrin) 600 mg TIDPRN PRN ORAL Breakthrough Pain 02/17/20 19:30 03/18/20 19:29 02/19/20 11:37 Magnesium Hydroxide (Mom) 30 ml HSPRN PRN ORAL Constipation 02/05/20 13:15 03/06/20 13:14 Nitroglycerin (Ntg) 0.4 mg Q5M PRN SL Prn Chest Pain 02/05/20 06:15 03/06/20 06:14 02/12/20 17:40 Ondansetron HCl (Zofran) 4 mg Q6H PRN IVP Nausea & Vomiting 02/05/20 13:15 03/06/20 13:14 Pantoprazole (Protonix) 40 mg DAILY ORAL 02/06/20 09:00 03/07/20 08:59 02/19/20 09:45 Piperacillin Sod/ Tazobactam Sod 3.375 gm/Dextrose 100 ml @ 25 mls/hr EVERY 8 HOURS IVPB 02/18/20 22:00 02/23/20 21:59 02/19/20 05:41 Polyethylene Glycol (Miralax) 17 gm HSPRN PRN ORAL Constipation 02/05/20 13:15 03/06/20 13:14 Vancomycin HCl (Vanco pharmacy to dose) 1 ea DAILY PRN MISC Per rx protocol 02/18/20 17:00 03/19/20 16:59 Kisha Salazar MD Feb 19, 2020 13:12
[2020-02-19] MEDS: dexAMETHasone 10mg/ml Inj IV SCH (14:20)
--- NOTE | 2020-02-19 14:58 | Diagnostic Imaging Report ---
EXAM: CT Chest Without Intravenous Contrast CLINICAL HISTORY: SOB TECHNIQUE: Axial computed tomography images of the chest without intravenous contrast. CTDI is 14.4 mGy and DLP is 628.1 mGy-cm. One or more of the following dose reduction techniques were used: automated exposure control, adjustment of the mA and/or kV according to patient size, use of iterative reconstruction technique. COMPARISON: CT chest on 02/05/2020 FINDINGS: Lungs: Extensive patchy ground-glass opacities and densities throughout the lungs, suggestive of Covid 19 infection. Pleural space: Unremarkable. No pneumothorax. No significant effusion. Heart: Unremarkable. No cardiomegaly. No significant pericardial effusion. Mediastinum: Nonspecific mildly prominent mediastinal lymph nodes. Bones/joints: Old bilateral rib fracture deformities. Degenerative changes of the spine. No dislocation. Soft tissues: Unremarkable. Vasculature: Unremarkable. No thoracic aortic aneurysm. Lymph nodes: Unremarkable. No enlarged lymph nodes. Liver: Small right hepatic cyst. Stomach and bowel: Diverticulosis. Tubes, lines and devices: Left-sided PICC line terminates in the SVC. IMPRESSION: Increased extensive patchy ground-glass opacities and densities throughout the lungs, suggestive of Covid 19 infection.
--- NOTE | 2020-02-19 15:06 | Pulmonology Progress Note ---
Subjective ROS Limited/Unobtainable: Yes Interval Events: none major reported per nursing Constitutional: Reports: fever, fatigue, other - sob, on NR O2 HEENT: Repors: no symptoms Respiratory: Reports: dry cough, shortness of breath Cardiovascular: Denies: no symptoms, chest pain, palpitations, other Gastrointestinal/Abdominal: Denies: nausea Psychiatric: Denies: depression Skin: Denies: rash Musculoskeletal: Denies: pain Allergies: Coded Allergies: No Known Allergies (Unverified , 02/05/20) Objective Last 24 Hour Vital Signs Date Time Temp Pulse Resp B/P (MAP) Pulse Ox O2 Delivery O2 Flow Rate FiO2 02/19/20 12:50 133/74 02/19/20 12:00 86 02/19/20 12:00 97.2 96 27 139/80 (99) 95 02/19/20 09:00 112/69 02/19/20 09:00 80 112/69 02/19/20 09:00 Non-Rebreather 15.0 02/19/20 08:00 83 02/19/20 08:00 97.9 80 21 112/69 (83) 94 02/19/20 08:00 78 24 89 Non-Rebreather 15.0 100 02/19/20 08:00 89 Non-Rebreather 15.0 100 02/19/20 05:41 132/73 02/19/20 04:00 99.9 86 23 132/73 (92) 91 02/19/20 03:28 87 02/19/20 00:00 99.0 88 27 130/82 (98) 94 02/18/20 23:59 78 02/18/20 23:58 130/82 02/18/20 22:42 85 33 94 93 02/18/20 21:43 75 45 90 100 02/18/20 21:00 Bi-pap 02/18/20 20:52 143/85 02/18/20 20:00 74 02/18/20 20:00 100.2 81 26 143/85 (104) 95 02/18/20 18:59 79 37 92 100 02/18/20 17:25 129/79 02/18/20 17:25 85 129/79 02/18/20 16:00 98.6 85 23 129/79 (96) 94 02/18/20 16:00 70 Intake and Output 02/18/20 02/19/20 19:00 07:00 Intake Total 390 ml 850 ml Output Total 400 ml Balance 390 ml 450 ml Intake Oral 390 ml 500 ml IV Total 350 ml Output Urine Total 400 ml # Voids 2 # Bowel Movements 2 Objective 02/18 still on 15L NRB mask saturating 88-93% 02/17 now on 15L NRB mask saturating at 91% 02/17/2020 now on 2 lpm NC 02/16/2020 no change 02/15/2020 no major change 02/14/2020 saturating well on RAD; NAD 02/13/2020 pt asleep; saturating well on RA 02/12/2020 sitting up in a chair; saturating well on RA 02/11/2020 back on isolation due to COVID-19 positive status again; currently being worked up for positive blood culture 02/09/2020 off isolation; saturating well on RA 02/08/2020 feeling better; COVID-19 PCR neg 02/07/2020 reports feeling better; COVID-19 PCR pending 02/06/2020 pt laying in bed; reports feeling better General Appearance: WD/WN, no acute distress HEENT: normocephalic, atraumatic Respiratory: chest wall non-tender Cardiovascular: normal rate, regular rhythm Abdomen: normal bowel sounds, soft, non tender, other - obese Microbiology Date/Time Source Procedure Growth Status 02/17/20 19:00 Urine,Clean Catch Urine Culture - Preliminary NO GROWTH AFTER 24 HOURS Resulted 02/17/20 16:00 Blood Blood Culture - Preliminary NO GROWTH AFTER 24 HOURS Resulted 02/17/20 16:00 Blood Blood Culture - Preliminary NO GROWTH AFTER 24 HOURS Resulted Laboratory Tests 02/18/20 17:45: Coccidioides Antibody (Comp Fix) [Pending], HIV (1&2) Antibody Rapid Negative 02/19/20 01:30: Urine Color Yellow, Urine Appearance Slightly cloudy, Urine pH 5, Urine Specific [place] 1.015, Urine Protein 2+H, Urine Glucose (UA) Negative, Urine Ketones 1+H, Urine Blood 1+H, Urine Nitrite Negative, Urine Bilirubin Negative, Urine Urobilinogen 1H, Urine Leukocyte Esterase Negative, Urine RBC 0-2H, Urine WBC 0- 2, Urine Squamous Epithelial Cells Few, Urine Bacteria Occasional, Urine Hyaline Casts 0-2H, Urine Granular Casts 0-2H, Urine Legionella Antigen [Pending] 02/19/20 03:50: White Blood Count 9.0, Red Blood Count 5.60, Hemoglobin 16.1, Hematocrit 45.8, Mean Corpuscular Volume 82, Mean Corpuscular Hemoglobin 28.8, Mean Corpuscular Hemoglobin Concent 35.2, Red Cell Distribution Width 13.7, Platelet Count 180, Mean Platelet Volume 6.9, Neutrophils (%) (Auto) , Lymphocytes (%) (Auto) , Monocytes (%) (Auto) , Eosinophils (%) (Auto) , Basophils (%) (Auto) , Differential Total Cells Counted 100, Neutrophils % (Manual) 90H, Lymphocytes % (Manual) 7L, Monocytes % (Manual) 3, Eosinophils % (Manual) 0, Basophils % (Manual) 0, Band Neutrophils 0, Platelet Estimate Adequate, Platelet Morphology Normal, Red Blood Cell Morphology Normal, D-Dimer 0.90H, Sodium Level 134L, Potassium Level 3.9, Chloride Level 100, Carbon Dioxide Level 27, Anion Gap 7, Blood Urea Nitrogen 40H, Creatinine 1.4H, Estimat Glomerular Filtration Rate 51.4, Glucose Level 106, Calcium Level 8.3L, Total Bilirubin 0.7, Aspartate Amino Transf (AST/SGOT) 45H, Alanine Aminotransferase (ALT/SGPT) 46, Alkaline Phosphatase 53, C-Reactive Protein, Quantitative 13.7H, Total Protein 7.2, Albumin 2.8L, Globulin 4.4, Albumin/Globulin Ratio 0.6L 02/19/20 08:02: Arterial Blood pH 7.415, Arterial Blood Partial Pressure CO2 33.2L, Arterial Blood Partial Pressure O2 55.6L, Arterial Blood HCO3 20.8L, Arterial Blood Oxygen Saturation 89.8*L, Arterial Blood Base Excess -2.8L, Shemar Test Positive Current Medications Medications (Trade) Dose Ordered Sig/Denins Route PRN Reason Start Time Stop Time Status Last Admin Dose Admin Acetaminophen (Tylenol) 650 mg Q4H PRN ORAL Temp >100.5 02/05/20 13:15 03/06/20 13:14 02/18/20 00:16 Acetaminophen (Tylenol) 650 mg Q4H PRN ORAL Pain (1-3) 02/09/20 08:30 03/10/20 08:29 02/18/20 22:40 Amlodipine Besylate (Norvasc) 5 mg BID ORAL 02/10/20 09:00 03/11/20 08:59 02/18/20 17:25 Bisacodyl (Dulcolax) 10 mg HSPRN PRN RECTAL Constipation 02/05/20 13:15 05/05/20 13:14 Chlorhexidine Gluconate (Marlen-Hex 2%) 1 applic DAILY@2000 TOPIC 02/14/20 20:00 05/14/20 19:59 02/18/20 20:48 Dexamethasone Sodium Phosphate (Decadron 10mg/ ml Inj) 6 mg DAILY IV 02/19/20 14:00 02/28/20 09:01 02/19/20 14:20 Dextrose (Dextrose 50%) 25 ml Q30M PRN IV Hypoglycemia 02/05/20 13:15 05/05/20 13:14 Dextrose (Dextrose 50%) 50 ml Q30M PRN IV Hypoglycemia 02/05/20 13:15 05/05/20 13:14 Enoxaparin Sodium (Lovenox) 110 mg EVERY 12 HOURS SUBQ 02/19/20 21:00 05/19/20 20:59 Guaifenesin/ Dextromethorphan (Robitussin DM Syrup) 10 ml Q6H PRN ORAL For Cough 02/16/20 14:15 05/16/20 14:14 02/16/20 22:37 Hydralazine HCl (Apresoline) 50 mg Q6HR ORAL 02/17/20 19:30 05/17/20 19:29 02/19/20 12:50 Ibuprofen (Motrin) 600 mg TIDPRN PRN ORAL Breakthrough Pain 02/17/20 19:30 03/18/20 19:29 02/19/20 11:37 Magnesium Hydroxide (Mom) 30 ml HSPRN PRN ORAL Constipation 02/05/20 13:15 03/06/20 13:14 Nitroglycerin (Ntg) 0.4 mg Q5M PRN SL Prn Chest Pain 02/05/20 06:15 03/06/20 06:14 02/12/20 17:40 Ondansetron HCl (Zofran) 4 mg Q6H PRN IVP Nausea & Vomiting 02/05/20 13:15 03/06/20 13:14 Pantoprazole (Protonix) 40 mg DAILY ORAL 02/06/20 09:00 03/07/20 08:59 02/19/20 09:45 Piperacillin Sod/ Tazobactam Sod 3.375 gm/Dextrose 100 ml @ 25 mls/hr EVERY 8 HOURS IVPB 02/18/20 22:00 02/23/20 21:59 02/19/20 14:21 Polyethylene Glycol (Miralax) 17 gm HSPRN PRN ORAL Constipation 02/05/20 13:15 03/06/20 13:14 Remdesivir 100 mg/ Sodium Chloride 250 ml @ 250 mls/hr Q24H IV 02/20/20 16:00 02/23/20 16:59 Remdesivir 200 mg/ Sodium Chloride 250 ml @ 125 mls/hr ONCE IV 02/19/20 16:00 02/19/20 17:59 Vancomycin HCl (Vanco pharmacy to dose) 1 ea DAILY PRN MISC Per rx protocol 02/18/20 17:00 03/19/20 16:59 Assessment/Plan Assessment/Plan 1.COVID-19 pneumonia. - last COVID-19 test positive after two negative tests - CTA 02/05/2020 ground-glass and consolidating infiltrates in the dependent portions of both lower lobes and to lesser degree the upper lobes consistent with bilateral pneumonia. No evidence of pulmonary embolus. - CXR 02/17/2020 worsening bilateral infiltrates over one day - CT chest 02/18 shows Increased extensive patchy ground-glass opacities and densities throughout the lungs, suggestive of Covid 19 infection. - currently on 15L NRB - Mycoplasma pneumoniae IgG 273; M. pneumoniae IgM titer within normal limits - D-dimer 0.90 - restarted decadron and remdesivir per ID due to worsening hypoxia 2. Initial negative rapid COVID-19 gene assay.- however repeat COVID-19 test positive 3. Smoker. 4. DVT ppx - on lovenox 5. Hypertension - on hydralazine, and norvasc - On cardiac diet 6. Blood culture positive for gram positive cocci staph aureus - on Abx - CT abd/pelvis showed no abscess per ID - TTE/ FERNY held off due to COVID-19 status - PICC line in place HIV antibody 1&2 neg We will follow carefully. The care for this patient was discussed with my supervising physician. Time spent for this case was approximately 31 minutes. Edilson Marinelli Feb 19, 2020 15:06 John Mata MD Feb 19, 2020 16:37
[2020-02-19 16:00] VITALS: BP 123/82
[2020-02-19] MEDS ORDERED: Loading Dose:Remdesivir 200mg/NS 210ml IV SCH ×2 (16:00)
--- NOTE | 2020-02-19 19:30 | NUR ---
NURSE NOTES: Report received from PRIYANKA Espinosa. Patient is awake on bed, alert and oriented x 4. monitoring specialist is in place, shows sinus rhythm with no chest pain reported at this time. On oxygen via Non-rebreather @ 15 Lpm sating 89-90 %. On cardiac diet, instructed and amenable. Patient is continent and using his urinal. IV site is on left forearm g-22 saline locked and PICC line on left upper arm double lumen. Safety measures are i place, bed in lowest and locked position, side rails up x 2, call light button and bedside table within reach, instructed to call for any assistance needed. Will continue plan of care.
[2020-02-19 20:00] VITALS: BP 125/71
[2020-02-19] MEDS: Dyna-Hex 2% Top Sol 2oz TOPIC SCH (20:09)
[2020-02-19] MEDS: Enoxaparin 120 mg inj SUBQ SCH (20:19)
--- NOTE | 2020-02-19 22:27 | NUR ---
NURSE NOTES: Patient is sating 89-90% on non-rebreather mask and still refused to have his BIPAP on. Dr. Mata has been aware. Will continue to monitor.
[2020-02-19] MEDS ORDERED: Vancomycin 1.25gm/250ml Premix IVPB ONE (22:30)
[2020-02-20] VITALS: BP 116/69
--- NOTE | 2020-02-20 | NUR ---
NURSE NOTES: Patient is still refusing to put on his BIPAP at night, at this time he's on nonrebreather mask @ 15 Lpm sating 90-92 %, but desats to 87-89% upon exertion.
[2020-02-20 04:00] VITALS: BP 129/81
[2020-02-20] MEDS: guaiFENesin /DM 10ml syrup ORAL PRN (04:51)
[2020-02-20 05:56] LABS: HEMATOCRIT 43.6 % (42.0-52.0); HEMOGLOBIN 14.9 G/DL (14.2-18.0); MEAN CORPUSCULAR VOLUME 84 FL (80-99); PLATELET COUNT 209 K/UL (150-450); RED CELL DISTRIBUTION WIDTH 13.4 % (11.6-14.8); WHITE BLOOD COUNT 6.8 K/UL (4.8-10.8)
[2020-02-20] MEDS: HydrALAZINE 50mg tab ORAL SCH ×3 (06:26→18:51)
[2020-02-20 06:59] LABS: ALANINE AMINOTRANSFERASE 38 U/L (12-78); ALBUMIN 2.6 G/DL (3.4-5.0); ALBUMIN/GLOBULIN RATIO 0.6 (1.0-2.7); ALKALINE PHOSPHATASE 57 U/L (46-116); ANION GAP 12 mmol/L (5-15); ASPARTATE AMINO TRANSFERASE 44 U/L (15-37); BILIRUBIN,TOTAL 0.6 MG/DL (0.2-1.0); BLOOD UREA NITROGEN 40 mg/dL (7-18); CALCIUM 8.2 MG/DL (8.5-10.1); CARBON DIOXIDE 22 MMOL/L (21-32); CHLORIDE 102 MMOL/L (98-107); CREATININE 1.2 MG/DL (0.55-1.30); POTASSIUM 3.9 MMOL/L (3.5-5.1); SODIUM 136 MMOL/L (136-145)
--- NOTE | 2020-02-20 07:34 | NUR ---
NURSE NOTES: Received patient in bed awake. Non rebreather mask at 15LPM in place, not in acute distress. IV lines intact. HOB elevated. Bed locked in low position. Call light within reach. Will continue to monitor.
--- NOTE | 2020-02-20 07:36 | NUR ---
NURSE HAND-OFF REPORT: Important Events on Shift:refused to eat. complained of chest pain relieved by medication. Patient Status: alert Diet: cardiac Pending Orders: Pending Results/Labs: Pending MD notification: Latest Vital Signs: Temperature 97.5 , Pulse 66 , B/P 151 /83 , Respiratory Rate 22 , O2 SAT 94 , Room Air, O2 Flow Rate 15.0 . Vital Sign Comment: EKG Rhythm: Sinus Rhythm Rhythm change?: N Notified?: N Response: Latest Hassan Fall Score: 20 Fall Risk: Low Risk Safety Measures: Call light Within Reach, Bed Alarm Zone 1, Side Rails Side Rails x2, Bed position Low and Locked. Fall Precautions: Patient Fall Education Report given to Tiana MATHEW
--- NOTE | 2020-02-20 07:37 | NUR ---
NURSE HAND-OFF REPORT: Important Events on Shift: Patient has been resting well the whole shift Patient Status: Patient is awake on bed, plan of care endorsed Diet: Cardiac diet Pending Orders: [none Pending Results/Labs:AM lab result Pending MD notification:none Latest Vital Signs: Temperature 97.3 , Pulse 75 , B/P 129 /81 , Respiratory Rate 22 , O2 SAT 90 , Room Air, O2 Flow Rate 15.0 . Vital Sign Comment: stable EKG Rhythm: Sinus Rhythm Rhythm change?: N Notified?: N -Dr. Emperatriz INTERIANO Response: Message left await call Latest Hassan Fall Score: 20 Fall Risk: Low Risk Safety Measures: Call light Within Reach, Bed Alarm Zone 1, Side Rails Side Rails x2, Bed position Low and Locked. Fall Precautions: Patient Fall Education Report given to PRIYANKA Tsang.
[2020-02-20 08:00] VITALS: BP 143/80
[2020-02-20] MEDS: dexAMETHasone 10mg/ml Inj IV SCH (09:09)
[2020-02-20] MEDS: Enoxaparin 120 mg inj SUBQ SCH ×2 (09:11→20:36)
--- NOTE | 2020-02-20 09:53 | Diagnostic Imaging Report ---
EXAM: XR Chest, 1 View CLINICAL HISTORY: INFECT TECHNIQUE: Frontal view of the chest. COMPARISON: Chest CT scan February 19, 2020 FINDINGS/IMPRESSION: Extensive bilateral airspace consolidation, better visualized on CT scan from February 19, 2020. No pleural effusion or pneumothorax. Cardiomegaly. Left upper extremity PICC line terminates in SVC. Follow-up 2 view chest rating up recommended.
--- NOTE | 2020-02-20 10:14 | Pulmonology Progress Note ---
Subjective ROS Limited/Unobtainable: Yes Interval Events: None new Constitutional: Reports: no symptoms HEENT: Repors: no symptoms Respiratory: Reports: dry cough, shortness of breath Cardiovascular: Denies: no symptoms, chest pain, palpitations, other Gastrointestinal/Abdominal: Denies: nausea Psychiatric: Denies: depression Skin: Denies: rash Musculoskeletal: Denies: pain Allergies: Coded Allergies: No Known Allergies (Unverified , 02/05/20) Objective Last 24 Hour Vital Signs Date Time Temp Pulse Resp B/P (MAP) Pulse Ox O2 Delivery O2 Flow Rate FiO2 02/20/20 09:10 76 143/80 02/20/20 09:00 Non-Rebreather 15.0 02/20/20 08:00 68 02/20/20 08:00 97.7 76 20 143/80 (101) 96 02/20/20 07:02 88 Non-Rebreather 15.0 100 02/20/20 06:26 129/81 02/20/20 04:00 97.3 75 22 129/81 (97) 90 02/20/20 03:23 73 02/20/20 00:24 68 02/20/20 00:00 97.8 76 23 116/69 (85) 90 02/19/20 23:46 116/69 02/19/20 21:00 Non-Rebreather 15.0 02/19/20 20:00 97.9 81 22 125/71 (89) 91 02/19/20 19:36 78 02/19/20 19:16 90 Non-Rebreather 15.0 100 02/19/20 17:33 123/82 02/19/20 16:00 75 02/19/20 16:00 98.1 77 26 123/82 (96) 95 02/19/20 12:50 133/74 02/19/20 12:00 86 02/19/20 12:00 97.2 96 27 139/80 (99) 95 Intake and Output 02/19/20 02/20/20 19:00 07:00 Intake Total 100 ml 800 ml Output Total 450 ml 1100 ml Balance -350 ml -300 ml Intake Oral 100 ml 800 ml Output Urine Total 450 ml 1100 ml # Bowel Movements 2 General Appearance: WD/WN, no acute distress HEENT: normocephalic, atraumatic Respiratory: chest wall non-tender Cardiovascular: normal rate, regular rhythm Abdomen: normal bowel sounds, soft, non tender, other - obese Microbiology Date/Time Source Procedure Growth Status 02/17/20 19:00 Urine,Clean Catch Urine Culture - Final NO GROWTH AFTER 48 HOURS Complete 02/17/20 16:00 Blood Blood Culture - Preliminary NO GROWTH AFTER 48 HOURS Resulted 02/17/20 16:00 Blood Blood Culture - Preliminary NO GROWTH AFTER 48 HOURS Resulted Laboratory Tests 02/19/20 19:45: Vancomycin Level Trough 10.6 02/20/20 04:32: White Blood Count 6.8, Red Blood Count 5.20, Hemoglobin 14.9, Hematocrit 43.6, Mean Corpuscular Volume 84, Mean Corpuscular Hemoglobin 28.8, Mean Corpuscular Hemoglobin Concent 34.3, Red Cell Distribution Width 13.4, Platelet Count 209, Mean Platelet Volume 7.1, Neutrophils (%) (Auto) , Lymphocytes (%) (Auto) , Monocytes (%) (Auto) , Eosinophils (%) (Auto) , Basophils (%) (Auto) , Differential Total Cells Counted 100, Neutrophils % (Manual) 87H, Lymphocytes % (Manual) 10L, Monocytes % (Manual) 3, Eosinophils % (Manual) 0, Basophils % (Manual) 0, Band Neutrophils 0, Platelet Estimate Adequate, Platelet Morphology Normal, Red Blood Cell Morphology Normal, Sodium Level 136, Potassium Level 3.9, Chloride Level 102, Carbon Dioxide Level 22, Anion Gap 12, Blood Urea Nitrogen 40H, Creatinine 1.2, Estimat Glomerular Filtration Rate > 60, Glucose Level 101, Calcium Level 8.2L, Total Bilirubin 0.6, Aspartate Amino Transf (AST/SGOT) 44H, Alanine Aminotransferase (ALT/SGPT) 38, Alkaline Phosphatase 57, Troponin I 0.007, Pro-B-Type Natriuretic Peptide [Pending], Total Protein 7.0, Albumin 2.6L , Globulin 4.4, Albumin/Globulin Ratio 0.6L Current Medications Medications (Trade) Dose Ordered Sig/Dennis Route PRN Reason Start Time Stop Time Status Last Admin Dose Admin Acetaminophen (Tylenol) 650 mg Q4H PRN ORAL Temp >100.5 02/05/20 13:15 03/06/20 13:14 02/18/20 00:16 Acetaminophen (Tylenol) 650 mg Q4H PRN ORAL Pain (1-3) 02/09/20 08:30 03/10/20 08:29 02/20/20 04:25 Amlodipine Besylate (Norvasc) 5 mg BID ORAL 02/10/20 09:00 03/11/20 08:59 02/20/20 09:10 Bisacodyl (Dulcolax) 10 mg HSPRN PRN RECTAL Constipation 02/05/20 13:15 05/05/20 13:14 Chlorhexidine Gluconate (Marlen-Hex 2%) 1 applic DAILY@2000 TOPIC 02/14/20 20:00 05/14/20 19:59 02/19/20 20:09 Dexamethasone Sodium Phosphate (Decadron 10mg/ ml Inj) 6 mg DAILY IV 02/19/20 14:00 02/28/20 09:01 02/20/20 09:09 Dextrose (Dextrose 50%) 25 ml Q30M PRN IV Hypoglycemia 02/05/20 13:15 05/05/20 13:14 Dextrose (Dextrose 50%) 50 ml Q30M PRN IV Hypoglycemia 02/05/20 13:15 05/05/20 13:14 Enoxaparin Sodium (Lovenox) 110 mg EVERY 12 HOURS SUBQ 02/19/20 21:00 05/19/20 20:59 02/20/20 09:11 Guaifenesin/ Dextromethorphan (Robitussin DM Syrup) 10 ml Q6H PRN ORAL For Cough 02/16/20 14:15 05/16/20 14:14 02/20/20 04:51 Hydralazine HCl (Apresoline) 50 mg Q6HR ORAL 02/17/20 19:30 05/17/20 19:29 02/20/20 06:26 Ibuprofen (Motrin) 600 mg TIDPRN PRN ORAL Breakthrough Pain 02/17/20 19:30 03/18/20 19:29 02/19/20 20:13 Magnesium Hydroxide (Mom) 30 ml HSPRN PRN ORAL Constipation 02/05/20 13:15 03/06/20 13:14 Nitroglycerin (Ntg) 0.4 mg Q5M PRN SL Prn Chest Pain 02/05/20 06:15 03/06/20 06:14 02/12/20 17:40 Ondansetron HCl (Zofran) 4 mg Q6H PRN IVP Nausea & Vomiting 02/05/20 13:15 03/06/20 13:14 Pantoprazole (Protonix) 40 mg DAILY ORAL 02/06/20 09:00 03/07/20 08:59 02/20/20 09:09 Piperacillin Sod/ Tazobactam Sod 3.375 gm/Dextrose 100 ml @ 25 mls/hr EVERY 8 HOURS IVPB 02/18/20 22:00 02/23/20 21:59 02/20/20 06:26 Polyethylene Glycol (Miralax) 17 gm HSPRN PRN ORAL Constipation 02/05/20 13:15 03/06/20 13:14 Remdesivir 100 mg/ Sodium Chloride 250 ml @ 250 mls/hr Q24H IV 02/20/20 16:00 02/23/20 16:59 Vancomycin HCl (Vanco pharmacy to dose) 1 ea DAILY PRN MISC Per rx protocol 02/18/20 17:00 03/19/20 16:59 Assessment/Plan Assessment/Plan 1.COVID-19 pneumonia. - last COVID-19 test positive after two negative tests - CTA 02/05/2020 ground-glass and consolidating infiltrates in the dependent portions of both lower lobes and to lesser degree the upper lobes consistent with bilateral pneumonia. No evidence of pulmonary embolus. - CXR 02/17/2020 worsening bilateral infiltrates - CT chest 02/18 shows Increased extensive patchy ground-glass opacities and densities throughout the lungs, suggestive of Covid 19 infection. - currently on 15L NRB - Mycoplasma pneumoniae IgG 273; M. pneumoniae IgM titer within normal limits - D-dimer 0.90 - restarted decadron and remdesivir per ID due to worsening hypoxia 2. Initial negative rapid COVID-19 gene assay.- however repeat COVID-19 test positive 3. Smoker. 4. DVT ppx - on lovenox 5. Hypertension - on hydralazine, and norvasc - On cardiac diet 6. Blood culture positive for gram positive cocci staph aureus - on Abx - CT abd/pelvis showed no abscess per ID - TTE/ FERNY held off due to COVID-19 status - PICC line in place HIV antibody 1&2 neg We will follow carefully. John Mata MD Feb 20, 2020 10:14
[2020-02-20] MEDS: Vancomycin 1.25gm/250ml Premix IVPB SCH (11:45)
[2020-02-20 11:50] VITALS: BP 115/66
--- NOTE | 2020-02-20 13:09 | Cardiology Progress Note ---
Assessment/Plan Assessment/Plan Acute covid 19 pneumonia chest pain possible M/S infiltrate bilat bacteremia drug free for 28 years his of ivda echo normal wall motion last week ct finding reportedly highly suggestive of covid 19 now wosrse on repat ct 02/19/2020 3rd test positive for covid after initial 2 were neg d/w rn and dr rodriguez ekg reviewed no st or t wave changes w cr up more bnp normal 02/17 i did not order diureitc unlikely cardiac related ct of the chest done yest noted extensive infiltrate flelt obe due to worsening covid 19 infection now back on treatment with covid medications on full dose anticoagulation for potential PE as a cause of hypoxemia although the ct finding with extensive infiltrates explains the hypoxemia will consider dc full dose anticoagsoon Subjective Subjective pt now in covid 19 isolation refused to put onthe bipap Objective Last 24 Hour Vital Signs Date Time Temp Pulse Resp B/P (MAP) Pulse Ox O2 Delivery O2 Flow Rate FiO2 02/20/20 11:57 115/66 02/20/20 11:50 97.3 66 23 115/66 (82) 93 02/20/20 09:10 76 143/80 02/20/20 09:00 Non-Rebreather 15.0 02/20/20 08:00 68 02/20/20 08:00 97.7 76 20 143/80 (101) 96 02/20/20 07:02 88 Non-Rebreather 15.0 100 02/20/20 06:26 129/81 02/20/20 04:00 97.3 75 22 129/81 (97) 90 02/20/20 03:23 73 02/20/20 00:24 68 02/20/20 00:00 97.8 76 23 116/69 (85) 90 02/19/20 23:46 116/69 02/19/20 21:00 Non-Rebreather 15.0 02/19/20 20:00 97.9 81 22 125/71 (89) 91 02/19/20 19:36 78 02/19/20 19:16 90 Non-Rebreather 15.0 100 02/19/20 17:33 123/82 02/19/20 16:00 75 02/19/20 16:00 98.1 77 26 123/82 (96) 95 Intake and Output 02/19/20 02/20/20 19:00 07:00 Intake Total 100 ml 800 ml Output Total 450 ml 1100 ml Balance -350 ml -300 ml Intake Oral 100 ml 800 ml Output Urine Total 450 ml 1100 ml # Bowel Movements 2 Laboratory Tests Test 02/19/20 19:45 02/20/20 04:32 Vancomycin Level Trough 10.6 ug/mL (5.0-12.0) White Blood Count 6.8 K/UL (4.8-10.8) Red Blood Count 5.20 M/UL (4.70-6.10) Hemoglobin 14.9 G/DL (14.2-18.0) Hematocrit 43.6 % (42.0-52.0) Mean Corpuscular Volume 84 FL (80-99) Mean Corpuscular Hemoglobin 28.8 PG (27.0-31.0) Mean Corpuscular Hemoglobin Concent 34.3 G/DL (32.0-36.0) Red Cell Distribution Width 13.4 % (11.6-14.8) Platelet Count 209 K/UL (150-450) Mean Platelet Volume 7.1 FL (6.5-10.1) Neutrophils (%) (Auto) % (45.0-75.0) Lymphocytes (%) (Auto) % (20.0-45.0) Monocytes (%) (Auto) % (1.0-10.0) Eosinophils (%) (Auto) % (0.0-3.0) Basophils (%) (Auto) % (0.0-2.0) Differential Total Cells Counted 100 Neutrophils % (Manual) 87 % (45-75) H Lymphocytes % (Manual) 10 % (20-45) L Monocytes % (Manual) 3 % (1-10) Eosinophils % (Manual) 0 % (0-3) Basophils % (Manual) 0 % (0-2) Band Neutrophils 0 % (0-8) Platelet Estimate Adequate Platelet Morphology Normal Red Blood Cell Morphology Normal Sodium Level 136 MMOL/L (136-145) Potassium Level 3.9 MMOL/L (3.5-5.1) Chloride Level 102 MMOL/L (98-107) Carbon Dioxide Level 22 MMOL/L (21-32) Anion Gap 12 mmol/L (5-15) Blood Urea Nitrogen 40 mg/dL (7-18) H Creatinine 1.2 MG/DL (0.55-1.30) Estimat Glomerular Filtration Rate > 60 mL/min (>60) Glucose Level 101 MG/DL (74-106) Calcium Level 8.2 MG/DL (8.5-10.1) L Total Bilirubin 0.6 MG/DL (0.2-1.0) Aspartate Amino Transf (AST/SGOT) 44 U/L (15-37) H Alanine Aminotransferase (ALT/SGPT) 38 U/L (12-78) Alkaline Phosphatase 57 U/L (46-116) Troponin I 0.007 ng/mL (0.000-0.056) Pro-B-Type Natriuretic Peptide Pending Total Protein 7.0 G/DL (6.4-8.2) Albumin 2.6 G/DL (3.4-5.0) L Globulin 4.4 g/dL Albumin/Globulin Ratio 0.6 (1.0-2.7) L Microbiology Date/Time Source Procedure Growth Status 02/17/20 19:00 Urine,Clean Catch Urine Culture - Final NO GROWTH AFTER 48 HOURS Complete 02/17/20 16:00 Blood Blood Culture - Preliminary NO GROWTH AFTER 48 HOURS Resulted 02/17/20 16:00 Blood Blood Culture - Preliminary NO GROWTH AFTER 48 HOURS Resulted Objective pt in covid 19 isoaltion with acute infection per id Respiratory/Chest: crackles/rales, rhonchi - bilaterally Cardiovascular: normal rate, regular rhythm, no gallop/murmur Abdomen: normal bowel sounds, soft, non tender, no organomegaly, non distended Genitourinary: other - no joseph Extremities: no cyanosis Manan Awan MD Feb 20, 2020 13:09
[2020-02-20] MEDS ORDERED: Tubing IV Secondary IV ONE (14:02)
[2020-02-20] MEDS: Nitroglycerin Subl 0.4mg tab SL PRN (14:27)
[2020-02-20 16:00] VITALS: BP 128/77
[2020-02-20] MEDS: Maintenance Dose:Remdesivir 100mg/NS 230ml x 4 Doses IV SCH ×2 (16:00)
--- NOTE | 2020-02-20 16:15 | Infectious Diseases Prog Note ---
Assessment/Plan Assessment/Plan ASSESSMENT AND PLAN: 1. staph aureus bacteremia/mssa, ? source, ? endocarditis, sepsis, leukocytosis, ? CAP covid-19 +, hypoxia, sob, chest x-ray worse, ? PE, ? HCAP/aspiration pna - zosyn and vancomycin - day # 12 post negative surveillance blood cultures, will need at least 2 weeks ancef post-neg blood cultures for MSSA bacteremia - on dexamethasone and remdesivir for worsening hypoxia - CT abdomen and pelvis without abscess - FERNY held secondary to + covid-19 test - may do as outpatient, TTE - no vegetations mentioned per cardiology - monitor labs, f/u blood cultures negative - d/w with Dr. Mata - CT chest noted - 02/19/20 - increased extensive infiltrates 2. covid-19 isolation 3. Hypertension history. Blood pressure treatment primary care team. 4. Elevated blood sugars. Blood sugar treatment per primary care team. 5. No known drug allergies. 6. Social history is positive for smoking. 7. Family history is noncontributory. 8. MAR was noted. 9. Case was discussed with RN. 10. Continue treatment per primary consultants. Subjective Constitutional: Reports: fatigue, other - on 15 L - NR; Denies: fever HEENT: Reports: congestion Respiratory: Reports: shortness of breath Cardiovascular: Denies: chest pain Gastrointestinal/Abdominal: Denies: nausea, vomiting Genitourinary: Denies: dysuria, hematuria Neurologic: Denies: headache Psychiatric: Denies: depression Skin: Denies: rash Hematologic: Denies: bleeding Musculoskeletal: Denies: pain Allergies: Coded Allergies: No Known Allergies (Unverified , 02/05/20) Objective Last 24 Hour Vital Signs Date Time Temp Pulse Resp B/P (MAP) Pulse Ox O2 Delivery O2 Flow Rate FiO2 02/20/20 14:27 127/76 02/20/20 12:00 73 02/20/20 11:57 115/66 02/20/20 11:50 97.3 66 23 115/66 (82) 93 02/20/20 09:10 76 143/80 02/20/20 09:00 Non-Rebreather 15.0 02/20/20 08:00 68 02/20/20 08:00 97.7 76 20 143/80 (101) 96 02/20/20 07:02 88 Non-Rebreather 15.0 100 02/20/20 06:26 129/81 02/20/20 04:00 97.3 75 22 129/81 (97) 90 02/20/20 03:23 73 02/20/20 00:24 68 02/20/20 00:00 97.8 76 23 116/69 (85) 90 02/19/20 23:46 116/69 02/19/20 21:00 Non-Rebreather 15.0 02/19/20 20:00 97.9 81 22 125/71 (89) 91 02/19/20 19:36 78 02/19/20 19:16 90 Non-Rebreather 15.0 100 02/19/20 17:33 123/82 Height (Feet): 5 Height (Inches): 10.00 Weight (Pounds): 240 General Appearance: no acute distress HEENT: normocephalic, atraumatic, anicteric Respiratory/Chest: crackles/rales, rhonchi - bilaterally Cardiovascular: normal rate, regular rhythm, no gallop/murmur Abdomen: normal bowel sounds, soft, non tender, no organomegaly, non distended Genitourinary: other - no joseph Extremities: no cyanosis Skin: no rash 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 The infiltrates are typical for Covid 19. No evidence of pulmonary embolus. CT abdomen and pelvis: IMPRESSION: 1. Scattered hepatic hypodense lesions, too small to characterize on this examination without intravenous contrast. 2. Colonic diverticulosis without evidence of acute diverticulitis. 3. Scattered enlarged mesenteric lymph nodes, presumably reactive. teral pneumonia. The infiltrates are typical for Covid 19. No evidence of pulmonary embolus. Chest x-ray - 12/19/19 - Indication: Shortness of breath Technique: One view of the chest Comparison: 02/17/2020 Findings: Interim worsening of bilateral infiltrates, particularly on the right. The heart is borderline enlarged. The pleural spaces are clear. Left arm PICC is again demonstrated Impression: Worsening bilateral infiltrates over one day, likely pneumonia CT chest - 02/19/20 - IMPRESSION: Increased extensive patchy ground-glass opacities and densities throughout the lungs, suggestive of Covid 19 infection. Microbiology Date/Time Source Procedure Growth Status 02/17/20 19:00 Urine,Clean Catch Urine Culture - Final NO GROWTH AFTER 48 HOURS Complete 02/17/20 16:00 Blood Blood Culture - Preliminary NO GROWTH AFTER 48 HOURS Resulted 02/10/20 06:30 Nasopharynx SARS-CoV-2 RdRp Gene Assay - Final Complete Microbiology Date/Time Source Procedure Growth Status 02/17/20 19:00 Urine,Clean Catch Urine Culture - Final NO GROWTH AFTER 48 HOURS Complete Laboratory Tests Test 02/19/20 19:45 02/20/20 04:32 Vancomycin Level Trough 10.6 ug/mL (5.0-12.0) White Blood Count 6.8 K/UL (4.8-10.8) Red Blood Count 5.20 M/UL (4.70-6.10) Hemoglobin 14.9 G/DL (14.2-18.0) Hematocrit 43.6 % (42.0-52.0) Mean Corpuscular Volume 84 FL (80-99) Mean Corpuscular Hemoglobin 28.8 PG (27.0-31.0) Mean Corpuscular Hemoglobin Concent 34.3 G/DL (32.0-36.0) Red Cell Distribution Width 13.4 % (11.6-14.8) Platelet Count 209 K/UL (150-450) Mean Platelet Volume 7.1 FL (6.5-10.1) Neutrophils (%) (Auto) % (45.0-75.0) Lymphocytes (%) (Auto) % (20.0-45.0) Monocytes (%) (Auto) % (1.0-10.0) Eosinophils (%) (Auto) % (0.0-3.0) Basophils (%) (Auto) % (0.0-2.0) Differential Total Cells Counted 100 Neutrophils % (Manual) 87 % (45-75) H Lymphocytes % (Manual) 10 % (20-45) L Monocytes % (Manual) 3 % (1-10) Eosinophils % (Manual) 0 % (0-3) Basophils % (Manual) 0 % (0-2) Band Neutrophils 0 % (0-8) Platelet Estimate Adequate Platelet Morphology Normal Red Blood Cell Morphology Normal Sodium Level 136 MMOL/L (136-145) Potassium Level 3.9 MMOL/L (3.5-5.1) Chloride Level 102 MMOL/L (98-107) Carbon Dioxide Level 22 MMOL/L (21-32) Anion Gap 12 mmol/L (5-15) Blood Urea Nitrogen 40 mg/dL (7-18) H Creatinine 1.2 MG/DL (0.55-1.30) Estimat Glomerular Filtration Rate > 60 mL/min (>60) Glucose Level 101 MG/DL (74-106) Calcium Level 8.2 MG/DL (8.5-10.1) L Total Bilirubin 0.6 MG/DL (0.2-1.0) Aspartate Amino Transf (AST/SGOT) 44 U/L (15-37) H Alanine Aminotransferase (ALT/SGPT) 38 U/L (12-78) Alkaline Phosphatase 57 U/L (46-116) Troponin I 0.007 ng/mL (0.000-0.056) Pro-B-Type Natriuretic Peptide Pending Total Protein 7.0 G/DL (6.4-8.2) Albumin 2.6 G/DL (3.4-5.0) L Globulin 4.4 g/dL Albumin/Globulin Ratio 0.6 (1.0-2.7) L Current Medications Medications (Trade) Dose Ordered Sig/Dennis Route PRN Reason Start Time Stop Time Status Last Admin Dose Admin Acetaminophen (Tylenol) 650 mg Q4H PRN ORAL Temp >100.5 02/05/20 13:15 03/06/20 13:14 02/20/20 12:00 Acetaminophen (Tylenol) 650 mg Q4H PRN ORAL Pain (1-3) 02/09/20 08:30 03/10/20 08:29 02/20/20 04:25 Amlodipine Besylate (Norvasc) 5 mg BID ORAL 02/10/20 09:00 03/11/20 08:59 02/20/20 09:10 Bisacodyl (Dulcolax) 10 mg HSPRN PRN RECTAL Constipation 02/05/20 13:15 05/05/20 13:14 Chlorhexidine Gluconate (Marlen-Hex 2%) 1 applic DAILY@1999 TOPIC 02/14/20 20:00 05/14/20 19:59 02/19/20 20:09 Dexamethasone Sodium Phosphate (Decadron 10mg/ ml Inj) 6 mg DAILY IV 02/19/20 14:00 02/28/20 09:01 02/20/20 09:09 Dextrose (Dextrose 50%) 25 ml Q30M PRN IV Hypoglycemia 02/05/20 13:15 05/05/20 13:14 Dextrose (Dextrose 50%) 50 ml Q30M PRN IV Hypoglycemia 02/05/20 13:15 05/05/20 13:14 Enoxaparin Sodium (Lovenox) 110 mg EVERY 12 HOURS SUBQ 02/19/20 21:00 05/19/20 20:59 02/20/20 09:11 Guaifenesin/ Dextromethorphan (Robitussin DM Syrup) 10 ml Q6H PRN ORAL For Cough 02/16/20 14:15 05/16/20 14:14 02/20/20 04:51 Hydralazine HCl (Apresoline) 50 mg Q6HR ORAL 02/17/20 19:30 05/17/20 19:29 02/20/20 06:26 Ibuprofen (Motrin) 600 mg TIDPRN PRN ORAL Breakthrough Pain 02/17/20 19:30 03/18/20 19:29 02/19/20 20:13 Magnesium Hydroxide (Mom) 30 ml HSPRN PRN ORAL Constipation 02/05/20 13:15 03/06/20 13:14 Nitroglycerin (Ntg) 0.4 mg Q5M PRN SL Prn Chest Pain 02/05/20 06:15 03/06/20 06:14 02/20/20 14:27 Ondansetron HCl (Zofran) 4 mg Q6H PRN IVP Nausea & Vomiting 02/05/20 13:15 03/06/20 13:14 Pantoprazole (Protonix) 40 mg DAILY ORAL 02/06/20 09:00 03/07/20 08:59 02/20/20 09:09 Piperacillin Sod/ Tazobactam Sod 3.375 gm/Dextrose 100 ml @ 25 mls/hr EVERY 8 HOURS IVPB 02/18/20 22:00 02/23/20 21:59 02/20/20 14:17 Polyethylene Glycol (Miralax) 17 gm HSPRN PRN ORAL Constipation 02/05/20 13:15 03/06/20 13:14 Remdesivir 100 mg/ Sodium Chloride 250 ml @ 250 mls/hr Q24H IV 02/20/20 16:00 02/23/20 16:59 02/20/20 16:00 Vancomycin HCl 250 ml @ 166.667 mls/hr Q12H IVPB 02/20/20 12:00 02/25/20 11:59 02/20/20 11:45 Vancomycin HCl (Vanco pharmacy to dose) 1 ea DAILY PRN MISC Per rx protocol 02/18/20 17:00 03/19/20 16:59 Kisha Salazar MD Feb 20, 2020 16:15
--- NOTE | 2020-02-20 19:13 | NUR ---
NURSE NOTES: Report received from PRIYANKA Tsang. Patient is awake on bed, alert and oriented x 4. Cardica monitor is in place, shows sinus rhythm with no chest pain reported at this time. On oxygen via nonrebreather mask @ 15 Lpm, sating 94% at this time. On cardiac diet, instructed and amenable. IV site is on left forearm g-22 and g-20 saline locked. PICC line double lumen @ left upper arm. Ambulatory with assistance needed. Safety measures are in place, bed in lowest and locked position, side rails up x 2, call light button and bedside table within reach, instructed to call for any assistance needed. Will continue plan of care.
[2020-02-20 20:00] VITALS: BP 130/82
[2020-02-20] MEDS: Dyna-Hex 2% Top Sol 2oz TOPIC SCH (20:29)
--- NOTE | 2020-02-20 23:30 | NUR ---
NURSE NOTES: Patient is still refusing to put on his BIPAP at night, at this time he's on nonrebreather mask @ 15 Lpm sating 90-92 %, but desats down to 87-89% upon exertion. Instructed to call for any assistance needed. Will continue to monitor.
[2020-02-21] VITALS: BP 125/80
[2020-02-21] MEDS: Vancomycin 1.25gm/250ml Premix IVPB SCH ×2 (00:02→12:25)
[2020-02-21] MEDS: HydrALAZINE 50mg tab ORAL SCH ×4 (00:11→17:37)
[2020-02-21 04:00] VITALS: BP 130/75
--- NOTE | 2020-02-21 05:23 | NUR ---
NURSE NOTES: Central dressing changed, no hematoma nor active bleeding noted, patent and intact.
[2020-02-21 06:38] LABS: ALBUMIN 2.6 G/DL (3.4-5.0); ALBUMIN/GLOBULIN RATIO 0.7 (1.0-2.7); BILIRUBIN,DIRECT 0.3 MG/DL (0.0-0.3); BILIRUBIN,TOTAL 0.5 MG/DL (0.2-1.0); CALCIUM 7.6 MG/DL (8.5-10.1); CREATININE 1.3 MG/DL (0.55-1.30); POTASSIUM 5.2 MMOL/L (3.5-5.1)
--- NOTE | 2020-02-21 07:25 | NUR ---
NURSE HAND-OFF REPORT: Important Events on Shift: Patient has been complaining of left arm pain, motrin 600 mg was given. Still on nonrebreather mask sating 90% Patient Status: Patient is asleep in stable condition. Plan of care endorsed. Diet: Cardiac diet Pending Orders: none Pending Results/Labs: none Pending MD notification:none Latest Vital Signs: Temperature 97.8 , Pulse 66 , B/P 130 /75 , Respiratory Rate 23 , O2 SAT 92 , Room Air, O2 Flow Rate 15.0 . Vital Sign Comment: stable EKG Rhythm: Sinus Rhythm Rhythm change?: N Notified?: N -Dr. Emperatriz INTERIANO Response: Message left await call Latest Hassan Fall Score: 45 Fall Risk: High Risk Safety Measures: Call light Within Reach, Bed Alarm Zone 1, Side Rails Side Rails x2, Bed position Low and Locked. Fall Precautions: Patient Fall Education Report given to PRIYANKA Flores.
[2020-02-21 08:00] VITALS: BP 122/62
--- NOTE | 2020-02-21 08:03 | NUR ---
NURSE NOTES: Pt awake/alert in bed, breathing with accessory muscle use on 15 lpm NRB, c/o slight SOB with nonproductive/dry cough on deep inspiration. Pt denies pain at this time. Vital signs stable with SR @ 67 on monitor. IV access WAYNE PICC with NS running at TKO in one lumen, the other lumen flushed with 10 ml NS and locked. IV access LFA x 2 also flushed and locked. Urinal available at bedside. Bed left in low position, side rails up x 2 and call light left near pt's hand.
[2020-02-21] MEDS: dexAMETHasone 10mg/ml Inj IV SCH (08:56)
[2020-02-21] MEDS: Enoxaparin 120 mg inj SUBQ SCH ×2 (08:57→20:54)
[2020-02-21 12:00] VITALS: BP 136/84
--- NOTE | 2020-02-21 12:36 | Pulmonology Progress Note ---
Subjective ROS Limited/Unobtainable: Yes Interval Events: None new Constitutional: Reports: fatigue, other - on 15 L - NR; Denies: fever HEENT: Repors: no symptoms Respiratory: Reports: dry cough, shortness of breath Cardiovascular: Denies: no symptoms, chest pain, palpitations, other Gastrointestinal/Abdominal: Denies: nausea, vomiting Psychiatric: Denies: depression Skin: Denies: rash Musculoskeletal: Denies: pain Allergies: Coded Allergies: No Known Allergies (Unverified , 02/05/20) Objective Last 24 Hour Vital Signs Date Time Temp Pulse Resp B/P (MAP) Pulse Ox O2 Delivery O2 Flow Rate FiO2 02/21/20 12:25 130/75 02/21/20 08:56 66 130/75 02/21/20 08:00 97.6 61 18 122/62 (82) 90 02/21/20 08:00 70 02/21/20 07:20 93 Non-Rebreather 15.0 100 02/21/20 05:44 130/75 02/21/20 04:00 97.8 66 23 130/75 (93) 92 02/21/20 03:42 55 02/21/20 00:11 125/80 02/21/20 00:00 98.0 64 24 125/80 (95) 92 02/21/20 00:00 71 02/20/20 21:00 Non-Rebreather 15.0 02/20/20 20:00 98.1 66 23 130/82 (98) 91 02/20/20 20:00 63 02/20/20 19:59 92 Non-Rebreather 15.0 100 02/20/20 18:51 151/83 02/20/20 18:51 66 151/83 02/20/20 16:00 86 02/20/20 16:00 97.5 75 22 128/77 (94) 94 02/20/20 14:27 127/76 Intake and Output 02/20/20 02/21/20 19:00 07:00 Intake Total 500 ml 600 ml Output Total 850 ml Balance 500 ml -250 ml Intake Oral 500 ml 600 ml Output Urine Total 850 ml # Bowel Movements 1 General Appearance: WD/WN, no acute distress HEENT: normocephalic, atraumatic Respiratory: chest wall non-tender Cardiovascular: normal rate, regular rhythm Abdomen: normal bowel sounds, soft, non tender, other - obese Laboratory Tests 02/21/20 03:00: Sodium Level 137, Potassium Level 5.2H, Chloride Level 103, Carbon Dioxide Level 20L, Anion Gap 14, Blood Urea Nitrogen 41H, Creatinine 1.3, Estimat Glomerular Filtration Rate 55.9, Glucose Level 113H, Calcium Level 7.6L, Total Bilirubin 0.5, Direct Bilirubin 0.3, Aspartate Amino Transf (AST/SGOT) 43H, Alanine Aminotransferase (ALT/SGPT) 45, Alkaline Phosphatase 53, Total Protein 6.1L, Albumin 2.6L, Globulin 3.5, Albumin/Globulin Ratio 0.7L Current Medications Medications (Trade) Dose Ordered Sig/Dennis Route PRN Reason Start Time Stop Time Status Last Admin Dose Admin Acetaminophen (Tylenol) 650 mg Q4H PRN ORAL Temp >100.5 02/05/20 13:15 03/06/20 13:14 02/20/20 12:00 Acetaminophen (Tylenol) 650 mg Q4H PRN ORAL Pain (1-3) 02/09/20 08:30 03/10/20 08:29 02/21/20 05:44 Amlodipine Besylate (Norvasc) 5 mg BID ORAL 02/10/20 09:00 03/11/20 08:59 02/21/20 08:56 Bisacodyl (Dulcolax) 10 mg HSPRN PRN RECTAL Constipation 02/05/20 13:15 05/05/20 13:14 Chlorhexidine Gluconate (Marlen-Hex 2%) 1 applic DAILY@2000 TOPIC 02/14/20 20:00 05/14/20 19:59 02/20/20 20:29 Dexamethasone Sodium Phosphate (Decadron 10mg/ ml Inj) 6 mg DAILY IV 02/19/20 14:00 02/28/20 09:01 02/21/20 08:56 Dextrose (Dextrose 50%) 25 ml Q30M PRN IV Hypoglycemia 02/05/20 13:15 05/05/20 13:14 Dextrose (Dextrose 50%) 50 ml Q30M PRN IV Hypoglycemia 02/05/20 13:15 05/05/20 13:14 Enoxaparin Sodium (Lovenox) 110 mg EVERY 12 HOURS SUBQ 02/19/20 21:00 05/19/20 20:59 02/21/20 08:57 Guaifenesin/ Dextromethorphan (Robitussin DM Syrup) 10 ml Q6H PRN ORAL For Cough 02/16/20 14:15 05/16/20 14:14 02/20/20 04:51 Hydralazine HCl (Apresoline) 50 mg Q6HR ORAL 02/17/20 19:30 05/17/20 19:29 02/21/20 12:25 Ibuprofen (Motrin) 600 mg TIDPRN PRN ORAL Breakthrough Pain 02/17/20 19:30 03/18/20 19:29 02/20/20 22:19 Magnesium Hydroxide (Mom) 30 ml HSPRN PRN ORAL Constipation 02/05/20 13:15 03/06/20 13:14 Nitroglycerin (Ntg) 0.4 mg Q5M PRN SL Prn Chest Pain 02/05/20 06:15 03/06/20 06:14 02/20/20 14:27 Ondansetron HCl (Zofran) 4 mg Q6H PRN IVP Nausea & Vomiting 02/05/20 13:15 03/06/20 13:14 Pantoprazole (Protonix) 40 mg DAILY ORAL 02/06/20 09:00 03/07/20 08:59 02/21/20 08:56 Piperacillin Sod/ Tazobactam Sod 3.375 gm/Dextrose 100 ml @ 25 mls/hr EVERY 8 HOURS IVPB 02/18/20 22:00 02/23/20 21:59 02/21/20 05:45 Polyethylene Glycol (Miralax) 17 gm HSPRN PRN ORAL Constipation 02/05/20 13:15 03/06/20 13:14 Remdesivir 100 mg/ Sodium Chloride 250 ml @ 250 mls/hr Q24H IV 02/20/20 16:00 02/23/20 16:59 02/20/20 16:00 Vancomycin HCl 250 ml @ 166.667 mls/hr Q12H IVPB 02/20/20 12:00 02/25/20 11:59 02/21/20 12:25 Vancomycin HCl (Vanco pharmacy to dose) 1 ea DAILY PRN MISC Per rx protocol 02/18/20 17:00 03/19/20 16:59 Assessment/Plan Assessment/Plan 1.COVID-19 pneumonia. - last COVID-19 test positive after two negative tests - CTA 02/05/2020 ground-glass and consolidating infiltrates in the dependent portions of both lower lobes and to lesser degree the upper lobes consistent with bilateral pneumonia. No evidence of pulmonary embolus. - CXR 02/17/2020 worsening bilateral infiltrates; on broad spectrum abx per ID - CT chest 02/18 shows Increased extensive patchy ground-glass opacities and densities throughout the lungs, suggestive of Covid 19 infection. - currently on 15L NRB - Mycoplasma pneumoniae IgG 273; M. pneumoniae IgM titer within normal limits - D-dimer 0.90; on full dose Lovenox - restarted decadron and remdesivir per ID due to worsening hypoxia 2. Initial negative rapid COVID-19 gene assay.- however repeat COVID-19 test positive 3. Smoker. 4. DVT ppx - on lovenox 5. Hypertension - on hydralazine, and norvasc - On cardiac diet 6. Blood culture positive for gram positive cocci staph aureus - on Abx - CT abd/pelvis showed no abscess per ID - TTE/ FERNY held off due to COVID-19 status - PICC line in place HIV antibody 1&2 neg We will follow carefully. John Mata MD Feb 21, 2020 12:36
--- NOTE | 2020-02-21 13:35 | NUR ---
CASE MANAGEMENT:REVIEW 02/21/20 SI: COVID PNEUMONIA. BACTEREMIA 97.6 61 18 122/62 90% on 15l/100% NRB K+5.2 BUN+41 IS: IV REMDESIVIR Q24 IV VANCOMYCIN Q12 IV DECADRON QD IV ZOSYN Q8HRS : NOW ON STEP DOWN UNIT DCP: FROM [facility]
[2020-02-21] MEDS: Maintenance Dose:Remdesivir 100mg/NS 230ml x 4 Doses IV SCH ×2 (15:55)
[2020-02-21 16:00] VITALS: BP 130/84
--- NOTE | 2020-02-21 16:31 | Infectious Diseases Prog Note ---
Assessment/Plan Assessment/Plan ASSESSMENT AND PLAN: 1. staph aureus bacteremia/mssa, ? source, ? endocarditis, sepsis, leukocytosis, ? CAP covid-19 +, hypoxia, sob, chest x-ray worse, ? PE, ? HCAP/aspiration pna - zosyn and vancomycin, doxycycline - day # 13 post negative surveillance blood cultures, will need at least 2 weeks post neg blood cultures - on dexamethasone and remdesivir for worsening hypoxia - CT abdomen and pelvis without abscess - FERNY held secondary to + covid-19 test - may do as outpatient, TTE - no vegetations mentioned per cardiology - monitor labs, f/u blood cultures negative - d/w with Dr. Mata - CT chest noted - 02/19/20 - increased extensive infiltrates - f/u on legionella 2. covid-19 isolation 3. Hypertension history. Blood pressure treatment primary care team. 4. Elevated blood sugars. Blood sugar treatment per primary care team. 5. No known drug allergies. 6. Social history is positive for smoking. 7. Family history is noncontributory. 8. MAR was noted. 9. Case was discussed with RN. 10. Continue treatment per primary consultants. Subjective Constitutional: Reports: fatigue; Denies: fever HEENT: Reports: congestion Respiratory: Reports: shortness of breath Cardiovascular: Denies: chest pain Gastrointestinal/Abdominal: Denies: nausea, vomiting, diarrhea Genitourinary: Reports: other - no cp Neurologic: Denies: headache Psychiatric: Denies: depression Skin: Denies: rash Hematologic: Denies: bleeding Musculoskeletal: Denies: pain Allergies: Coded Allergies: No Known Allergies (Unverified , 02/05/20) Objective Last 24 Hour Vital Signs Date Time Temp Pulse Resp B/P (MAP) Pulse Ox O2 Delivery O2 Flow Rate FiO2 02/21/20 16:06 Non-Rebreather 15.0 02/21/20 12:25 130/75 02/21/20 12:00 Non-Rebreather 15.0 02/21/20 08:56 66 130/75 02/21/20 08:00 97.6 61 18 122/62 (82) 90 02/21/20 08:00 Non-Rebreather 15.0 02/21/20 08:00 70 02/21/20 07:20 93 Non-Rebreather 15.0 100 02/21/20 05:44 130/75 02/21/20 04:00 97.8 66 23 130/75 (93) 92 02/21/20 03:42 55 02/21/20 00:11 125/80 02/21/20 00:00 98.0 64 24 125/80 (95) 92 02/21/20 00:00 71 02/20/20 21:00 Non-Rebreather 15.0 02/20/20 20:00 98.1 66 23 130/82 (98) 91 02/20/20 20:00 63 02/20/20 19:59 92 Non-Rebreather 15.0 100 02/20/20 18:51 151/83 02/20/20 18:51 66 151/83 Height (Feet): 5 Height (Inches): 10.00 Weight (Pounds): 240 General Appearance: no acute distress HEENT: normocephalic, atraumatic, anicteric Respiratory/Chest: crackles/rales, rhonchi - bilaterally Cardiovascular: normal rate, regular rhythm, no gallop/murmur, no JVD Abdomen: normal bowel sounds, soft, non tender, no organomegaly, non distended Genitourinary: other - no joseph Extremities: no cyanosis Skin: no rash Neurologic/Psychiatric: line fixer II-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 The infiltrates are typical for Covid 19. No evidence of pulmonary embolus. CT abdomen and pelvis: IMPRESSION: 1. Scattered hepatic hypodense lesions, too small to characterize on this examination without intravenous contrast. 2. Colonic diverticulosis without evidence of acute diverticulitis. 3. Scattered enlarged mesenteric lymph nodes, presumably reactive. teral pneumonia. The infiltrates are typical for Covid 19. No evidence of pulmonary embolus. Chest x-ray - 12/19/19 - Indication: Shortness of breath Technique: One view of the chest Comparison: 02/17/2020 Findings: Interim worsening of bilateral infiltrates, particularly on the right. The heart is borderline enlarged. The pleural spaces are clear. Left arm PICC is again demonstrated Impression: Worsening bilateral infiltrates over one day, likely pneumonia CT chest - 02/19/20 - IMPRESSION: Increased extensive patchy ground-glass opacities and densities throughout the lungs, suggestive of Covid 19 infection. Microbiology Date/Time Source Procedure Growth Status 02/17/20 19:00 Urine,Clean Catch Urine Culture - Final NO GROWTH AFTER 48 HOURS Complete 02/17/20 16:00 Blood Blood Culture - Preliminary NO GROWTH AFTER 72 HOURS Resulted 02/10/20 06:30 Nasopharynx SARS-CoV-2 RdRp Gene Assay - Final Complete Microbiology Date/Time Source Procedure Growth Status 02/17/20 19:00 Urine,Clean Catch Urine Culture - Final NO GROWTH AFTER 48 HOURS Complete 02/17/20 16:00 Blood Blood Culture - Preliminary NO GROWTH AFTER 72 HOURS Resulted 02/10/20 06:30 Nasopharynx SARS-CoV-2 RdRp Gene Assay - Final Complete Labs Test 02/18/20 17:45 02/19/20 01:30 02/19/20 03:50 02/19/20 08:02 HIV (1&2) Antibody Rapid Negative (NEGATIVE) Urine Color Yellow Urine Appearance Slightly cloudy Urine pH 5 (4.5-8.0) Urine Specific [place] 1.015 (1.005-1.035) Urine Protein 2+ (NEGATIVE) Urine Glucose (UA) Negative (NEGATIVE) Urine Ketones 1+ (NEGATIVE) Urine Blood 1+ (NEGATIVE) Urine Nitrite Negative (NEGATIVE) Urine Bilirubin Negative (NEGATIVE) Urine Urobilinogen 1 MG/DL (0.0-1.0) Urine Leukocyte Esterase Negative (NEGATIVE) Urine RBC 0-2 /HPF (0 - 0) Urine WBC 0-2 /HPF (0 - 0) Urine Squamous Epithelial Cells Few /LPF (NONE/OCC) Urine Bacteria Occasional /HPF (NONE) Urine Hyaline Casts 0-2 /LPF (NONE) Urine Granular Casts 0-2 /LPF (NONE) White Blood Count 9.0 K/UL (4.8-10.8) Red Blood Count 5.60 M/UL (4.70-6.10) Hemoglobin 16.1 G/DL (14.2-18.0) Hematocrit 45.8 % (42.0-52.0) Mean Corpuscular Volume 82 FL (80-99) Mean Corpuscular Hemoglobin 28.8 PG (27.0-31.0) Mean Corpuscular Hemoglobin Concent 35.2 G/DL (32.0-36.0) Red Cell Distribution Width 13.7 % (11.6-14.8) Platelet Count 180 K/UL (150-450) Mean Platelet Volume 6.9 FL (6.5-10.1) Neutrophils (%) (Auto) % (45.0-75.0) Lymphocytes (%) (Auto) % (20.0-45.0) Monocytes (%) (Auto) % (1.0-10.0) Eosinophils (%) (Auto) % (0.0-3.0) Basophils (%) (Auto) % (0.0-2.0) Differential Total Cells Counted 100 Neutrophils % (Manual) 90 % (45-75) Lymphocytes % (Manual) 7 % (20-45) Monocytes % (Manual) 3 % (1-10) Eosinophils % (Manual) 0 % (0-3) Basophils % (Manual) 0 % (0-2) Band Neutrophils 0 % (0-8) Platelet Estimate Adequate Platelet Morphology Normal Red Blood Cell Morphology Normal D-Dimer 0.90 mg/L FEU (0.00-0.49) Sodium Level 134 MMOL/L (136-145) Potassium Level 3.9 MMOL/L (3.5-5.1) Chloride Level 100 MMOL/L (98-107) Carbon Dioxide Level 27 MMOL/L (21-32) Anion Gap 7 mmol/L (5-15) Blood Urea Nitrogen 40 mg/dL (7-18) Creatinine 1.4 MG/DL (0.55-1.30) Estimat Glomerular Filtration Rate 51.4 mL/min (>60) Glucose Level 106 MG/DL (74-106) Calcium Level 8.3 MG/DL (8.5-10.1) Total Bilirubin 0.7 MG/DL (0.2-1.0) Aspartate Amino Transf (AST/SGOT) 45 U/L (15-37) Alanine Aminotransferase (ALT/SGPT) 46 U/L (12-78) Alkaline Phosphatase 53 U/L (46-116) C-Reactive Protein, Quantitative 13.7 mg/dL (0.00-0.90) Total Protein 7.2 G/DL (6.4-8.2) Albumin 2.8 G/DL (3.4-5.0) Globulin 4.4 g/dL Albumin/Globulin Ratio 0.6 (1.0-2.7) Arterial Blood pH 7.415 (7.350-7.450) Arterial Blood Partial Pressure CO2 33.2 mmHg (35.0-45.0) Arterial Blood Partial Pressure O2 55.6 mmHg (75.0-100.0) Arterial Blood HCO3 20.8 mmol/L (22.0-26.0) Arterial Blood Oxygen Saturation 89.8 % (95-100) Arterial Blood Base Excess -2.8 (-2-2) Shemar Test Positive Test 02/19/20 19:45 02/20/20 04:32 02/21/20 03:00 Vancomycin Level Trough 10.6 ug/mL (5.0-12.0) White Blood Count 6.8 K/UL (4.8-10.8) Red Blood Count 5.20 M/UL (4.70-6.10) Hemoglobin 14.9 G/DL (14.2-18.0) Hematocrit 43.6 % (42.0-52.0) Mean Corpuscular Volume 84 FL (80-99) Mean Corpuscular Hemoglobin 28.8 PG (27.0-31.0) Mean Corpuscular Hemoglobin Concent 34.3 G/DL (32.0-36.0) Red Cell Distribution Width 13.4 % (11.6-14.8) Platelet Count 209 K/UL (150-450) Mean Platelet Volume 7.1 FL (6.5-10.1) Neutrophils (%) (Auto) % (45.0-75.0) Lymphocytes (%) (Auto) % (20.0-45.0) Monocytes (%) (Auto) % (1.0-10.0) Eosinophils (%) (Auto) % (0.0-3.0) Basophils (%) (Auto) % (0.0-2.0) Differential Total Cells Counted 100 Neutrophils % (Manual) 87 % (45-75) Lymphocytes % (Manual) 10 % (20-45) Monocytes % (Manual) 3 % (1-10) Eosinophils % (Manual) 0 % (0-3) Basophils % (Manual) 0 % (0-2) Band Neutrophils 0 % (0-8) Platelet Estimate Adequate Platelet Morphology Normal Red Blood Cell Morphology Normal Sodium Level 136 MMOL/L (136-145) 137 MMOL/L (136-145) Potassium Level 3.9 MMOL/L (3.5-5.1) 5.2 MMOL/L (3.5-5.1) Chloride Level 102 MMOL/L (98-107) 103 MMOL/L (98-107) Carbon Dioxide Level 22 MMOL/L (21-32) 20 MMOL/L (21-32) Anion Gap 12 mmol/L (5-15) 14 mmol/L (5-15) Blood Urea Nitrogen 40 mg/dL (7-18) 41 mg/dL (7-18) Creatinine 1.2 MG/DL (0.55-1.30) 1.3 MG/DL (0.55-1.30) Estimat Glomerular Filtration Rate > 60 mL/min (>60) 55.9 mL/min (>60) Glucose Level 101 MG/DL (74-106) 113 MG/DL (74-106) Calcium Level 8.2 MG/DL (8.5-10.1) 7.6 MG/DL (8.5-10.1) Total Bilirubin 0.6 MG/DL (0.2-1.0) 0.5 MG/DL (0.2-1.0) Aspartate Amino Transf (AST/SGOT) 44 U/L (15-37) 43 U/L (15-37) Alanine Aminotransferase (ALT/SGPT) 38 U/L (12-78) 45 U/L (12-78) Alkaline Phosphatase 57 U/L (46-116) 53 U/L (46-116) Troponin I 0.007 ng/mL (0.000-0.056) Total Protein 7.0 G/DL (6.4-8.2) 6.1 G/DL (6.4-8.2) Albumin 2.6 G/DL (3.4-5.0) 2.6 G/DL (3.4-5.0) Globulin 4.4 g/dL 3.5 g/dL Albumin/Globulin Ratio 0.6 (1.0-2.7) 0.7 (1.0-2.7) Direct Bilirubin 0.3 MG/DL (0.0-0.3) Laboratory Tests Test 02/21/20 03:00 Sodium Level 137 MMOL/L (136-145) Potassium Level 5.2 MMOL/L (3.5-5.1) H Chloride Level 103 MMOL/L (98-107) Carbon Dioxide Level 20 MMOL/L (21-32) L Anion Gap 14 mmol/L (5-15) Blood Urea Nitrogen 41 mg/dL (7-18) H Creatinine 1.3 MG/DL (0.55-1.30) Estimat Glomerular Filtration Rate 55.9 mL/min (>60) Glucose Level 113 MG/DL (74-106) H Calcium Level 7.6 MG/DL (8.5-10.1) L Total Bilirubin 0.5 MG/DL (0.2-1.0) Direct Bilirubin 0.3 MG/DL (0.0-0.3) Aspartate Amino Transf (AST/SGOT) 43 U/L (15-37) H Alanine Aminotransferase (ALT/SGPT) 45 U/L (12-78) Alkaline Phosphatase 53 U/L (46-116) Total Protein 6.1 G/DL (6.4-8.2) L Albumin 2.6 G/DL (3.4-5.0) L Globulin 3.5 g/dL Albumin/Globulin Ratio 0.7 (1.0-2.7) L Current Medications Medications (Trade) Dose Ordered Sig/Dennis Route PRN Reason Start Time Stop Time Status Last Admin Dose Admin Acetaminophen (Tylenol) 650 mg Q4H PRN ORAL Temp >100.5 02/05/20 13:15 03/06/20 13:14 02/20/20 12:00 Acetaminophen (Tylenol) 650 mg Q4H PRN ORAL Pain (1-3) 02/09/20 08:30 03/10/20 08:29 02/21/20 05:44 Amlodipine Besylate (Norvasc) 5 mg BID ORAL 02/10/20 09:00 03/11/20 08:59 02/21/20 08:56 Bisacodyl (Dulcolax) 10 mg HSPRN PRN RECTAL Constipation 02/05/20 13:15 05/05/20 13:14 Chlorhexidine Gluconate (Marlen-Hex 2%) 1 applic DAILY@1999 TOPIC 02/14/20 20:00 05/14/20 19:59 02/20/20 20:29 Dexamethasone Sodium Phosphate (Decadron 10mg/ ml Inj) 6 mg DAILY IV 02/19/20 14:00 02/28/20 09:01 02/21/20 08:56 Dextrose (Dextrose 50%) 25 ml Q30M PRN IV Hypoglycemia 02/05/20 13:15 05/05/20 13:14 Dextrose (Dextrose 50%) 50 ml Q30M PRN IV Hypoglycemia 02/05/20 13:15 05/05/20 13:14 Enoxaparin Sodium (Lovenox) 110 mg EVERY 12 HOURS SUBQ 02/19/20 21:00 05/19/20 20:59 02/21/20 08:57 Guaifenesin/ Dextromethorphan (Robitussin DM Syrup) 10 ml Q6H PRN ORAL For Cough 02/16/20 14:15 05/16/20 14:14 02/20/20 04:51 Hydralazine HCl (Apresoline) 50 mg Q6HR ORAL 02/17/20 19:30 05/17/20 19:29 02/21/20 12:25 Ibuprofen (Motrin) 600 mg TIDPRN PRN ORAL Breakthrough Pain 02/17/20 19:30 03/18/20 19:29 02/20/20 22:19 Magnesium Hydroxide (Mom) 30 ml HSPRN PRN ORAL Constipation 02/05/20 13:15 03/06/20 13:14 Nitroglycerin (Ntg) 0.4 mg Q5M PRN SL Prn Chest Pain 02/05/20 06:15 03/06/20 06:14 02/20/20 14:27 Ondansetron HCl (Zofran) 4 mg Q6H PRN IVP Nausea & Vomiting 02/05/20 13:15 03/06/20 13:14 Pantoprazole (Protonix) 40 mg DAILY ORAL 02/06/20 09:00 03/07/20 08:59 02/21/20 08:56 Piperacillin Sod/ Tazobactam Sod 3.375 gm/Dextrose 100 ml @ 25 mls/hr EVERY 8 HOURS IVPB 02/18/20 22:00 02/23/20 21:59 02/21/20 14:00 Polyethylene Glycol (Miralax) 17 gm HSPRN PRN ORAL Constipation 02/05/20 13:15 03/06/20 13:14 Remdesivir 100 mg/ Sodium Chloride 250 ml @ 250 mls/hr Q24H IV 02/20/20 16:00 02/23/20 16:59 02/21/20 15:55 Vancomycin HCl 250 ml @ 166.667 mls/hr Q12H IVPB 02/20/20 12:00 02/25/20 11:59 02/21/20 12:25 Vancomycin HCl (Vanco pharmacy to dose) 1 ea DAILY PRN MISC Per rx protocol 02/18/20 17:00 03/19/20 16:59 Kisha Salazar MD Feb 21, 2020 16:30
--- NOTE | 2020-02-21 19:10 | NUR ---
NURSE NOTES: Received patient from PRIYANKA Flores under the care of Dr. Mata for the admitting dx. of chest pain. patient noted with no allergies and full code status. Patient on isolation for Covid (+) status. Obsered and maintained at all times. Patient is A+Ox4, verbally responsive and able to make needs know with clear speech. Noted SR on the reporting analyst. Denies any pain or discomfort at this time. Will continue to monitor.
[2020-02-21 20:00] VITALS: BP 144/87
[2020-02-21] MEDS: Dyna-Hex 2% Top Sol 2oz TOPIC SCH (20:52)
[2020-02-21] MEDS: Piperacillin/Tazobactam 3.375 GM in D5W 110 ML IVPB SCH (20:55)
[2020-02-21] MEDS: guaiFENesin /DM 10ml syrup ORAL PRN (20:56)
[2020-02-21] MEDS ORDERED: Doxycycline Monohydrate 100mg ORAL SCH (21:00)
--- NOTE | 2020-02-21 21:00 | NUR ---
NURSE NOTES: Patient noted habit of taking off non-rebreather mask to speak on the phone or perform activities, resulting in lowering of O2 saturation. Education provided regarding importance of keeping mask on, risks and benefits explained, patient verbalized understanding.
--- NOTE | 2020-02-21 22:34 | Cardiology Progress Note ---
Assessment/Plan Assessment/Plan Acute covid 19 pneumonia chest pain possible M/S infiltrate bilat bacteremia drug free for 28 years his of ivda seems oxygenation has been abn but stabel in the past few days echo normal wall motion last week ct finding reportedly highly suggestive of covid 19 now wosrse on repat ct 02/19/2020 3rd test positive for covid after initial 2 were neg d/w rn ekg reviewed no st or t wave changes cr seems stable bnp normal 02/17 and 02/[address] of the chest done yest noted extensive infiltrate flelt obe due to worsening covid 19 infection now back on treatment with covid medications on full dose anticoagulation for potential PE as a cause of hypoxemia although the ct finding with extensive infiltrates explains the hypoxemia will consider dc full dose anticoagsoon soon Subjective Subjective pt now in covid 19 isolation refused to put onthe bipap pr rn talks alot on the phone an takes him mask off adn he desaturates Objective Last 24 Hour Vital Signs Date Time Temp Pulse Resp B/P (MAP) Pulse Ox O2 Delivery O2 Flow Rate FiO2 02/21/20 20:00 67 02/21/20 20:00 97.8 70 22 144/87 (106) 93 02/21/20 20:00 Non-Rebreather 15.0 02/21/20 17:37 130/84 02/21/20 17:37 88 130/84 02/21/20 16:06 Non-Rebreather 15.0 02/21/20 16:00 97.2 67 22 130/84 (99) 79 02/21/20 16:00 88 02/21/20 12:25 130/75 02/21/20 12:00 97.5 65 20 136/84 (101) 89 02/21/20 12:00 Non-Rebreather 15.0 02/21/20 12:00 73 02/21/20 08:56 66 130/75 02/21/20 08:00 97.6 61 18 122/62 (82) 90 02/21/20 08:00 Non-Rebreather 15.0 02/21/20 08:00 70 02/21/20 07:20 93 Non-Rebreather 15.0 100 02/21/20 05:44 130/75 02/21/20 04:00 97.8 66 23 130/75 (93) 92 02/21/20 03:42 55 02/21/20 00:11 125/80 02/21/20 00:00 98.0 64 24 125/80 (95) 92 02/21/20 00:00 71 Intake and Output 02/20/20 02/21/20 19:00 07:00 Intake Total 500 ml 600 ml Output Total 850 ml Balance 500 ml -250 ml Intake Oral 500 ml 600 ml Output Urine Total 850 ml # Bowel Movements 1 Laboratory Tests Test 02/21/20 03:00 Sodium Level 137 MMOL/L (136-145) Potassium Level 5.2 MMOL/L (3.5-5.1) H Chloride Level 103 MMOL/L (98-107) Carbon Dioxide Level 20 MMOL/L (21-32) L Anion Gap 14 mmol/L (5-15) Blood Urea Nitrogen 41 mg/dL (7-18) H Creatinine 1.3 MG/DL (0.55-1.30) Estimat Glomerular Filtration Rate 55.9 mL/min (>60) Glucose Level 113 MG/DL (74-106) H Calcium Level 7.6 MG/DL (8.5-10.1) L Total Bilirubin 0.5 MG/DL (0.2-1.0) Direct Bilirubin 0.3 MG/DL (0.0-0.3) Aspartate Amino Transf (AST/SGOT) 43 U/L (15-37) H Alanine Aminotransferase (ALT/SGPT) 45 U/L (12-78) Alkaline Phosphatase 53 U/L (46-116) Total Protein 6.1 G/DL (6.4-8.2) L Albumin 2.6 G/DL (3.4-5.0) L Globulin 3.5 g/dL Albumin/Globulin Ratio 0.7 (1.0-2.7) L Interleukin 6 (IL-6) Pending Objective pt in covid 19 isoaltion with acute infection per id Respiratory/Chest: crackles/rales, rhonchi - bilaterally Cardiovascular: normal rate, regular rhythm, no gallop/murmur, no JVD Abdomen: normal bowel sounds, soft, non tender, no organomegaly, non distended Genitourinary: other - no joseph Extremities: no cyanosis Manan Awan MD Feb 21, 2020 22:34
[2020-02-22] VITALS: BP 155/78
[2020-02-22] MEDS: HydrALAZINE 50mg tab ORAL SCH ×4 (00:27→18:00)
[2020-02-22] MEDS: Vancomycin 1.25gm/250ml Premix IVPB SCH ×2 (00:27→08:15)
--- NOTE | 2020-02-22 03:00 | NUR ---
NURSE NOTES: Patient asleep but easily arousable, no distress noted. Will continue to monitor.
[2020-02-22 04:00] VITALS: BP 146/87
[2020-02-22 05:14] LABS: HEMATOCRIT 47.3 % (42.0-52.0); HEMOGLOBIN 15.8 G/DL (14.2-18.0); MEAN CORPUSCULAR VOLUME 85 FL (80-99); PLATELET COUNT 173 K/UL (150-450); RED BLOOD COUNT 5.55 M/UL (4.70-6.10); RED CELL DISTRIBUTION WIDTH 13.8 % (11.6-14.8); WHITE BLOOD COUNT 7.6 K/UL (4.8-10.8)
[2020-02-22 06:04] LABS: ALBUMIN 3.1 G/DL (3.4-5.0); ALBUMIN/GLOBULIN RATIO 0.8 (1.0-2.7); BILIRUBIN,DIRECT 0.2 MG/DL (0.0-0.3); BILIRUBIN,TOTAL 0.6 MG/DL (0.2-1.0); CALCIUM 7.9 MG/DL (8.5-10.1); CREATININE 1.4 MG/DL (0.55-1.30); POTASSIUM 5.7 MMOL/L (3.5-5.1)
[2020-02-22] MEDS: Piperacillin/Tazobactam 3.375 GM in D5W 110 ML IVPB SCH ×3 (06:04→22:23)
[2020-02-22] MEDS: guaiFENesin /DM 10ml syrup ORAL PRN (06:12)
--- NOTE | 2020-02-22 06:40 | NUR ---
NURSE NOTES: Patient complaining of increased work of breathing, discussed with patient option to go on BiPAP. RT made aware and spoke with patient. Patient agreed to BiPAP. PRN BiPAP set up by RT. Will continue to monitor.
--- NOTE | 2020-02-22 07:15 | NUR ---
NURSE HAND-OFF REPORT: Important Events on Shift:ATB Patient Status: Stable Diet: Reg Pending Orders: Pending Results/Labs: Pending MD notification: Latest Vital Signs: Temperature 97.8 , Pulse 87 , B/P 146 /87 , Respiratory Rate 21 , O2 SAT 96 , Room Air, O2 Flow Rate 1.0 . Vital Sign Comment: EKG Rhythm: Sinus Rhythm Rhythm change?: N Notified?: N -Dr. Emperatriz INTERIANO Response: Message left await call Latest Hassan Fall Score: 30 Fall Risk: Medium Risk Safety Measures: Call light Within Reach, Bed Alarm Zone 1, Side Rails Side Rails x2, Bed position Low and Locked. Fall Precautions: Patient Fall Education Report given to PRIYANKA Flores.
[2020-02-22 08:00] VITALS: BP 156/84
[2020-02-22] MEDS: dexAMETHasone 10mg/ml Inj IV SCH (08:15)
[2020-02-22] MEDS: Azithromycin 250mg tab ORAL SCH (08:16)
[2020-02-22] MEDS: Enoxaparin 120 mg inj SUBQ SCH ×2 (08:16→20:06)
--- NOTE | 2020-02-22 11:08 | NUR ---
RD ASSESSMENT & RECOMMENDATIONS SEE CARE ACTIVITY FOR COMPLETE ASSESSMENT DAILY ESTIMATED NEEDS: Needs based on Pulmonary, cardiac 87kg abw 23-28 kcals/kg 9923-6863 total kcals 1-1.5 g protein/kg 87-131 g total protein 25-30 mL/kg 3393-5564 total fluid mLs NUTRITION DIAGNOSIS: Decreased sodium and fat needs r/t HTN and obesity as evidenced by pt w/ cardiac history, elev BP (159/98-> now improved, on BP meds), BMI >30, obese per guidelines. CURRENT DIET: Cardiac PO DIET RECOMMENDATIONS: CARDIAC DIET ADDITIONAL RECOMMENDATIONS: 1) Maintain calibrated bedscale wts; obtain a standing wt as able 2) Obtain HgA1C for eval 3) Added proteins portions to trays 4) Monitor PO intake: decreased intake on 02/14 per EMR Now refusal of meals x3 days, add NEPRO TID w/ meals Non oral feeds if medically appropriate w/ Bipap.
[2020-02-22 11:51] VITALS: BP 146/84
--- NOTE | 2020-02-22 12:17 | Cardiology Progress Note ---
Assessment/Plan Assessment/Plan Acute covid 19 pneumonia chest pain possible M/S infiltrate bilat bacteremia drug free for 28 years his of ivda per rn cough with deep inspiration but now agrees to bipap after resisting for so many days echo normal wall motion last week ct finding reportedly highly suggestive of covid 19 now wosrse on repeat ct 02/19/2020 3rd test positive for covid after initial 2 were neg d/w rn ekg reviewed no st or t wave changes low grade fever cr seems stable bnp normal 02/17 and 02/[address] of the chest done most recently showed extensive infiltrate felt to be due to worsening covid 19 infection now back on treatment with covid medications on full dose anticoagulation for potential PE as a cause of hypoxemia d/w dr fry continue supportive care Subjective Subjective pt now in covid 19 isolation per rn: agreed to bipap not eating much more appetite due to poor taste Objective Last 24 Hour Vital Signs Date Time Temp Pulse Resp B/P (MAP) Pulse Ox O2 Delivery O2 Flow Rate FiO2 02/22/20 11:51 98.2 79 26 146/84 (104) 94 02/22/20 11:44 Bi-pap 15.0 02/22/20 08:15 87 146/87 02/22/20 08:00 88 02/22/20 08:00 100.3 76 24 156/84 (108) 96 02/22/20 07:49 Bi-pap 15.0 02/22/20 07:10 87 21 96 100 02/22/20 07:08 91 Bi-Pap 1.0 100 02/22/20 06:02 146/87 02/22/20 04:00 97.8 70 22 146/87 (106) 93 02/22/20 04:00 68 02/22/20 04:00 Non-Rebreather 15.0 02/22/20 00:27 155/78 02/22/20 00:00 Non-Rebreather 15.0 02/22/20 00:00 64 02/22/20 00:00 97.9 87 24 155/78 (103) 93 02/21/20 20:09 93 Non-Rebreather 15.0 100 02/21/20 20:00 67 02/21/20 20:00 97.8 70 22 144/87 (106) 93 02/21/20 20:00 Non-Rebreather 15.0 02/21/20 17:37 130/84 02/21/20 17:37 88 130/84 02/21/20 16:06 Non-Rebreather 15.0 02/21/20 16:00 97.2 67 22 130/84 (99) 79 02/21/20 16:00 88 02/21/20 12:25 130/75 Intake and Output 02/21/20 02/22/20 19:00 07:00 Intake Total 600 ml 500 ml Output Total 800 ml 750 ml Balance -200 ml -250 ml Intake Oral 600 ml 500 ml Output Urine Total 800 ml 750 ml # Bowel Movements 2 Laboratory Tests Test 02/21/20 23:00 02/22/20 04:35 Vancomycin Level Trough 7.0 ug/mL (5.0-12.0) White Blood Count 7.6 K/UL (4.8-10.8) Red Blood Count 5.55 M/UL (4.70-6.10) Hemoglobin 15.8 G/DL (14.2-18.0) Hematocrit 47.3 % (42.0-52.0) Mean Corpuscular Volume 85 FL (80-99) Mean Corpuscular Hemoglobin 28.5 PG (27.0-31.0) Mean Corpuscular Hemoglobin Concent 33.5 G/DL (32.0-36.0) Red Cell Distribution Width 13.8 % (11.6-14.8) Platelet Count 173 K/UL (150-450) Mean Platelet Volume 6.2 FL (6.5-10.1) L Neutrophils (%) (Auto) % (45.0-75.0) Lymphocytes (%) (Auto) % (20.0-45.0) Monocytes (%) (Auto) % (1.0-10.0) Eosinophils (%) (Auto) % (0.0-3.0) Basophils (%) (Auto) % (0.0-2.0) Sodium Level 132 MMOL/L (136-145) L Potassium Level 5.7 MMOL/L (3.5-5.1) H Chloride Level 98 MMOL/L (98-107) Carbon Dioxide Level 22 MMOL/L (21-32) Anion Gap 12 mmol/L (5-15) Blood Urea Nitrogen 28 mg/dL (7-18) H Creatinine 1.4 MG/DL (0.55-1.30) H Estimat Glomerular Filtration Rate 51.4 mL/min (>60) Glucose Level 81 MG/DL (74-106) Calcium Level 7.9 MG/DL (8.5-10.1) L Total Bilirubin 0.6 MG/DL (0.2-1.0) Direct Bilirubin 0.2 MG/DL (0.0-0.3) Aspartate Amino Transf (AST/SGOT) 51 U/L (15-37) H Alanine Aminotransferase (ALT/SGPT) 64 U/L (12-78) Alkaline Phosphatase 47 U/L (46-116) Total Protein 6.8 G/DL (6.4-8.2) Albumin 3.1 G/DL (3.4-5.0) L Globulin 3.7 g/dL Albumin/Globulin Ratio 0.8 (1.0-2.7) L Objective pt in covid 19 isoaltion with acute infection Manan Awan MD Feb 22, 2020 12:17
--- NOTE | 2020-02-22 12:40 | Pulmonology Progress Note ---
Subjective ROS Limited/Unobtainable: Yes Interval Events: now on BiPAP Constitutional: Reports: fatigue; Denies: fever HEENT: Repors: no symptoms Respiratory: Reports: dry cough, shortness of breath Cardiovascular: Denies: no symptoms, chest pain, palpitations, other Gastrointestinal/Abdominal: Denies: nausea, vomiting, diarrhea Psychiatric: Denies: depression Skin: Denies: rash Musculoskeletal: Denies: pain Allergies: Coded Allergies: No Known Allergies (Unverified , 02/05/20) Objective Last 24 Hour Vital Signs Date Time Temp Pulse Resp B/P (MAP) Pulse Ox O2 Delivery O2 Flow Rate FiO2 02/22/20 12:31 146/84 02/22/20 11:51 98.2 79 26 146/84 (104) 94 02/22/20 11:44 Bi-pap 15.0 02/22/20 08:15 87 146/87 02/22/20 08:00 88 02/22/20 08:00 100.3 76 24 156/84 (108) 96 02/22/20 07:49 Bi-pap 15.0 02/22/20 07:10 87 21 96 100 02/22/20 07:08 91 Bi-Pap 1.0 100 02/22/20 06:02 146/87 02/22/20 04:00 97.8 70 22 146/87 (106) 93 02/22/20 04:00 68 02/22/20 04:00 Non-Rebreather 15.0 02/22/20 00:27 155/78 02/22/20 00:00 Non-Rebreather 15.0 02/22/20 00:00 64 02/22/20 00:00 97.9 87 24 155/78 (103) 93 02/21/20 20:09 93 Non-Rebreather 15.0 100 02/21/20 20:00 67 02/21/20 20:00 97.8 70 22 144/87 (106) 93 02/21/20 20:00 Non-Rebreather 15.0 02/21/20 17:37 130/84 02/21/20 17:37 88 130/84 02/21/20 16:06 Non-Rebreather 15.0 02/21/20 16:00 97.2 67 22 130/84 (99) 79 02/21/20 16:00 88 Intake and Output 02/21/20 02/22/20 19:00 07:00 Intake Total 600 ml 500 ml Output Total 800 ml 750 ml Balance -200 ml -250 ml Intake Oral 600 ml 500 ml Output Urine Total 800 ml 750 ml # Bowel Movements 2 Objective 02/21 now on BiPAP, saturating at 95% 02/18 still on 15L NRB mask saturating 88-93% 02/17 now on 15L NRB mask saturating at 91% 02/17/2020 now on 2 lpm NC 02/16/2020 no change 02/15/2020 no major change 02/14/2020 saturating well on RAD; NAD 02/13/2020 pt asleep; saturating well on RA 02/12/2020 sitting up in a chair; saturating well on RA 02/11/2020 back on isolation due to COVID-19 positive status again; currently being worked up for positive blood culture 02/09/2020 off isolation; saturating well on RA 02/08/2020 feeling better; COVID-19 PCR neg 02/07/2020 reports feeling better; COVID-19 PCR pending 02/06/2020 pt laying in bed; reports feeling better General Appearance: WD/WN, no acute distress HEENT: normocephalic, atraumatic Respiratory: chest wall non-tender Cardiovascular: normal rate, regular rhythm Abdomen: normal bowel sounds, soft, non tender, other - obese Laboratory Tests 02/21/20 23:00: Vancomycin Level Trough 7.0 02/22/20 04:35: White Blood Count 7.6, Red Blood Count 5.55, Hemoglobin 15.8, Hematocrit 47.3, Mean Corpuscular Volume 85, Mean Corpuscular Hemoglobin 28.5, Mean Corpuscular Hemoglobin Concent 33.5, Red Cell Distribution Width 13.8, Platelet Count 173, Mean Platelet Volume 6.2L, Neutrophils (%) (Auto) , Lymphocytes (%) (Auto) , Monocytes (%) (Auto) , Eosinophils (%) (Auto) , Basophils (%) (Auto) , Sodium Level 132L, Potassium Level 5.7H, Chloride Level 98, Carbon Dioxide Level 22, Anion Gap 12, Blood Urea Nitrogen 28H, Creatinine 1.4H, Estimat Glomerular Filtration Rate 51.4, Glucose Level 81, Calcium Level 7.9L, Total Bilirubin 0.6, Direct Bilirubin 0.2, Aspartate Amino Transf (AST/SGOT) 51H, Alanine Aminotransferase (ALT/SGPT) 64, Alkaline Phosphatase 47, Total Protein 6.8, Albumin 3.1L, Globulin 3.7, Albumin/Globulin Ratio 0.8L Current Medications Medications (Trade) Dose Ordered Sig/Dennis Route PRN Reason Start Time Stop Time Status Last Admin Dose Admin Acetaminophen (Tylenol) 650 mg Q4H PRN ORAL Temp >100.5 02/05/20 13:15 03/06/20 13:14 02/20/20 12:00 Acetaminophen (Tylenol) 650 mg Q4H PRN ORAL Pain (1-3) 02/09/20 08:30 03/10/20 08:29 02/21/20 05:44 Amlodipine Besylate (Norvasc) 5 mg BID ORAL 02/10/20 09:00 03/11/20 08:59 02/22/20 08:15 Azithromycin (Zithromax) 500 mg DAILY ORAL 02/22/20 09:00 02/29/20 08:59 02/22/20 08:16 Bisacodyl (Dulcolax) 10 mg HSPRN PRN RECTAL Constipation 02/05/20 13:15 05/05/20 13:14 Chlorhexidine Gluconate (Marlen-Hex 2%) 1 applic DAILY@1999 TOPIC 02/14/20 20:00 05/14/20 19:59 02/21/20 20:52 Dexamethasone Sodium Phosphate (Decadron 10mg/ ml Inj) 6 mg DAILY IV 02/19/20 14:00 02/28/20 09:01 02/22/20 08:15 Dextrose (Dextrose 50%) 25 ml Q30M PRN IV Hypoglycemia 02/05/20 13:15 05/05/20 13:14 Dextrose (Dextrose 50%) 50 ml Q30M PRN IV Hypoglycemia 02/05/20 13:15 05/05/20 13:14 Enoxaparin Sodium (Lovenox) 110 mg EVERY 12 HOURS SUBQ 02/19/20 21:00 05/19/20 20:59 02/22/20 08:16 Guaifenesin/ Dextromethorphan (Robitussin DM Syrup) 10 ml Q6H PRN ORAL For Cough 02/16/20 14:15 05/16/20 14:14 02/22/20 06:12 Hydralazine HCl (Apresoline) 50 mg Q6HR ORAL 02/17/20 19:30 05/17/20 19:29 02/22/20 12:31 Ibuprofen (Motrin) 600 mg TIDPRN PRN ORAL Breakthrough Pain 02/17/20 19:30 03/18/20 19:29 02/21/20 20:56 Magnesium Hydroxide (Mom) 30 ml HSPRN PRN ORAL Constipation 02/05/20 13:15 03/06/20 13:14 Nitroglycerin (Ntg) 0.4 mg Q5M PRN SL Prn Chest Pain 02/05/20 06:15 03/06/20 06:14 02/20/20 14:27 Ondansetron HCl (Zofran) 4 mg Q6H PRN IVP Nausea & Vomiting 02/05/20 13:15 03/06/20 13:14 Pantoprazole (Protonix) 40 mg DAILY ORAL 02/06/20 09:00 03/07/20 08:59 02/22/20 08:16 Piperacillin Sod/ Tazobactam Sod 3.375 gm/Dextrose 110 ml @ 27.5 mls/hr EVERY 8 HOURS IVPB 02/21/20 22:00 02/26/20 21:59 02/22/20 06:04 Polyethylene Glycol (Miralax) 17 gm HSPRN PRN ORAL Constipation 02/05/20 13:15 03/06/20 13:14 Promethazine HCl/ Codeine (Phenergan with Codeine) 5 ml Q4H PRN ORAL For Cough 02/22/20 12:15 03/23/20 12:14 Remdesivir 100 mg/ Sodium Chloride 250 ml @ 250 mls/hr Q24H IV 02/20/20 16:00 02/23/20 16:59 02/21/20 15:55 Vancomycin HCl 250 ml @ 166.667 mls/hr Q8H IVPB 02/22/20 00:00 02/27/20 00:00 02/22/20 08:15 Vancomycin HCl (Vanco pharmacy to dose) 1 ea DAILY PRN MISC Per rx protocol 02/18/20 17:00 03/19/20 16:59 Assessment/Plan Assessment/Plan 1.COVID-19 pneumonia. - last COVID-19 test positive after two negative tests - CTA 02/05/2020 ground-glass and consolidating infiltrates in the dependent portions of both lower lobes and to lesser degree the upper lobes consistent with bilateral pneumonia. No evidence of pulmonary embolus. - CXR 02/17/2020 worsening bilateral infiltrates; on broad spectrum abx per ID - CT chest 02/18 shows Increased extensive patchy ground-glass opacities and densities throughout the lungs, suggestive of Covid 19 infection. - now on BiPAP, saturating at 95% - Mycoplasma pneumoniae IgG 273; M. pneumoniae IgM titer within normal limits - D-dimer 0.90; on full dose Lovenox - restarted decadron and remdesivir per ID due to worsening hypoxia 2. Initial negative rapid COVID-19 gene assay.- however repeat COVID-19 test positive 3. Smoker. 4. DVT ppx - on lovenox 5. Hypertension - on hydralazine, and norvasc - On cardiac diet 6. Blood culture positive for gram positive cocci staph aureus - on Abx - CT abd/pelvis showed no abscess per ID - TTE/ FERNY held off due to COVID-19 status - PICC line in place HIV antibody 1&2 neg We will follow carefully. The care for this patient was discussed with my supervising physician Time spent for this case was approximately 31 minutes Edilson Marinelli Feb 22, 2020 12:40 John Mata MD Feb 22, 2020 15:14
[2020-02-22] MEDS: Promethazine/Codeine 5ml UD ORAL PRN ×2 (13:33→20:05)
--- NOTE | 2020-02-22 13:49 | Infectious Diseases Prog Note ---
Assessment/Plan Assessment/Plan ASSESSMENT AND PLAN: 1. staph aureus bacteremia/mssa, ? source, ? endocarditis, sepsis, leukocytosis, ? CAP covid-19 +, hypoxia, sob, chest x-ray worse, ? PE, ? HCAP/aspiration pna mild Nguyễn - cr - 1.4 - hold vancomycin - zosyn zyvox, azithromycin - day # 14 post negative surveillance blood cultures, will need at least 2 weeks post neg blood cultures - on dexamethasone and remdesivir for worsening hypoxia - CT abdomen and pelvis without abscess - FERNY held secondary to + covid-19 test - may do as outpatient, TTE - no vegetations mentioned per cardiology - monitor labs, f/u blood cultures negative - d/w with Dr. Mata - CT chest noted - 02/19/20 - increased extensive infiltrates - f/u on legionella 2. covid-19 isolation 3. Hypertension history. Blood pressure treatment primary care team. 4. Elevated blood sugars. Blood sugar treatment per primary care team. 5. No known drug allergies. 6. Social history is positive for smoking. 7. Family history is noncontributory. 8. MAR was noted. 9. Case was discussed with RN. 10. Continue treatment per primary consultants. Subjective Constitutional: Reports: fever - lgt, other - on bipap HEENT: Reports: congestion Respiratory: Reports: shortness of breath Cardiovascular: Denies: chest pain Gastrointestinal/Abdominal: Denies: nausea, vomiting, diarrhea Genitourinary: Reports: other - no joseph Allergies: Coded Allergies: No Known Allergies (Unverified , 02/05/20) Objective Last 24 Hour Vital Signs Date Time Temp Pulse Resp B/P (MAP) Pulse Ox O2 Delivery O2 Flow Rate FiO2 02/22/20 12:31 146/84 02/22/20 12:00 71 02/22/20 11:51 98.2 79 26 146/84 (104) 94 02/22/20 11:44 Bi-pap 15.0 02/22/20 11:08 69 28 94 100 02/22/20 08:15 87 146/87 02/22/20 08:00 88 02/22/20 08:00 100.3 76 24 156/84 (108) 96 02/22/20 07:49 Bi-pap 15.0 02/22/20 07:10 87 21 96 100 02/22/20 07:08 91 Bi-Pap 1.0 100 02/22/20 06:02 146/87 02/22/20 04:00 97.8 70 22 146/87 (106) 93 02/22/20 04:00 68 02/22/20 04:00 Non-Rebreather 15.0 02/22/20 00:27 155/78 02/22/20 00:00 Non-Rebreather 15.0 02/22/20 00:00 64 02/22/20 00:00 97.9 87 24 155/78 (103) 93 02/21/20 20:09 93 Non-Rebreather 15.0 100 02/21/20 20:00 67 02/21/20 20:00 97.8 70 22 144/87 (106) 93 02/21/20 20:00 Non-Rebreather 15.0 02/21/20 17:37 130/84 02/21/20 17:37 88 130/84 02/21/20 16:06 Non-Rebreather 15.0 02/21/20 16:00 97.2 67 22 130/84 (99) 79 02/21/20 16:00 88 Height (Feet): 5 Height (Inches): 10.00 Weight (Pounds): 240 General Appearance: no acute distress HEENT: normocephalic, atraumatic, anicteric Respiratory/Chest: accessory muscle use, crackles/rales, rhonchi - bilaterally Cardiovascular: normal rate, regular rhythm Abdomen: soft, non tender, no organomegaly, non distended CT chest: IMPRESSION: There are mild subpleural ground-glass and consolidating infiltrates in the dependent portions of both lower lobes and to lesser degree the upper lobes consistent with bilateral pneumonia. The infiltrates are typical for Covid 19. No evidence of pulmonary embolus. CT abdomen and pelvis: IMPRESSION: 1. Scattered hepatic hypodense lesions, too small to characterize on this examination without intravenous contrast. 2. Colonic diverticulosis without evidence of acute diverticulitis. 3. Scattered enlarged mesenteric lymph nodes, presumably reactive. teral pneumonia. The infiltrates are typical for Covid 19. No evidence of pulmonary embolus. Chest x-ray - 12/19/19 - Indication: Shortness of breath Technique: One view of the chest Comparison: 02/17/2020 Findings: Interim worsening of bilateral infiltrates, particularly on the right. The heart is borderline enlarged. The pleural spaces are clear. Left arm PICC is again demonstrated Impression: Worsening bilateral infiltrates over one day, likely pneumonia CT chest - 02/19/20 - IMPRESSION: Increased extensive patchy ground-glass opacities and densities throughout the lungs, suggestive of Covid 19 infection. Laboratory Tests Test 02/21/20 23:00 02/22/20 04:35 Vancomycin Level Trough 7.0 ug/mL (5.0-12.0) White Blood Count 7.6 K/UL (4.8-10.8) Red Blood Count 5.55 M/UL (4.70-6.10) Hemoglobin 15.8 G/DL (14.2-18.0) Hematocrit 47.3 % (42.0-52.0) Mean Corpuscular Volume 85 FL (80-99) Mean Corpuscular Hemoglobin 28.5 PG (27.0-31.0) Mean Corpuscular Hemoglobin Concent 33.5 G/DL (32.0-36.0) Red Cell Distribution Width 13.8 % (11.6-14.8) Platelet Count 173 K/UL (150-450) Mean Platelet Volume 6.2 FL (6.5-10.1) L Neutrophils (%) (Auto) % (45.0-75.0) Lymphocytes (%) (Auto) % (20.0-45.0) Monocytes (%) (Auto) % (1.0-10.0) Eosinophils (%) (Auto) % (0.0-3.0) Basophils (%) (Auto) % (0.0-2.0) Sodium Level 132 MMOL/L (136-145) L Potassium Level 5.7 MMOL/L (3.5-5.1) H Chloride Level 98 MMOL/L (98-107) Carbon Dioxide Level 22 MMOL/L (21-32) Anion Gap 12 mmol/L (5-15) Blood Urea Nitrogen 28 mg/dL (7-18) H Creatinine 1.4 MG/DL (0.55-1.30) H Estimat Glomerular Filtration Rate 51.4 mL/min (>60) Glucose Level 81 MG/DL (74-106) Calcium Level 7.9 MG/DL (8.5-10.1) L Total Bilirubin 0.6 MG/DL (0.2-1.0) Direct Bilirubin 0.2 MG/DL (0.0-0.3) Aspartate Amino Transf (AST/SGOT) 51 U/L (15-37) H Alanine Aminotransferase (ALT/SGPT) 64 U/L (12-78) Alkaline Phosphatase 47 U/L (46-116) Total Protein 6.8 G/DL (6.4-8.2) Albumin 3.1 G/DL (3.4-5.0) L Globulin 3.7 g/dL Albumin/Globulin Ratio 0.8 (1.0-2.7) L Current Medications Medications (Trade) Dose Ordered Sig/Dennis Route PRN Reason Start Time Stop Time Status Last Admin Dose Admin Acetaminophen (Tylenol) 650 mg Q4H PRN ORAL Temp >100.5 02/05/20 13:15 03/06/20 13:14 02/20/20 12:00 Acetaminophen (Tylenol) 650 mg Q4H PRN ORAL Pain (1-3) 02/09/20 08:30 03/10/20 08:29 02/21/20 05:44 Amlodipine Besylate (Norvasc) 5 mg BID ORAL 02/10/20 09:00 03/11/20 08:59 02/22/20 08:15 Azithromycin (Zithromax) 500 mg DAILY ORAL 02/22/20 09:00 02/29/20 08:59 02/22/20 08:16 Bisacodyl (Dulcolax) 10 mg HSPRN PRN RECTAL Constipation 02/05/20 13:15 05/05/20 13:14 Chlorhexidine Gluconate (Marlen-Hex 2%) 1 applic DAILY@1999 TOPIC 02/14/20 20:00 05/14/20 19:59 02/21/20 20:52 Dexamethasone Sodium Phosphate (Decadron 10mg/ ml Inj) 6 mg DAILY IV 02/19/20 14:00 02/28/20 09:01 02/22/20 08:15 Dextrose (Dextrose 50%) 25 ml Q30M PRN IV Hypoglycemia 02/05/20 13:15 05/05/20 13:14 Dextrose (Dextrose 50%) 50 ml Q30M PRN IV Hypoglycemia 02/05/20 13:15 05/05/20 13:14 Enoxaparin Sodium (Lovenox) 110 mg EVERY 12 HOURS SUBQ 02/19/20 21:00 05/19/20 20:59 02/22/20 08:16 Hydralazine HCl (Apresoline) 50 mg Q6HR ORAL 02/17/20 19:30 05/17/20 19:29 02/22/20 12:31 Ibuprofen (Motrin) 600 mg TIDPRN PRN ORAL Breakthrough Pain 02/17/20 19:30 03/18/20 19:29 02/21/20 20:56 Linezolid (Zyvox) 600 mg EVERY 12 HOURS ORAL 02/22/20 21:00 02/27/20 20:59 UNV Magnesium Hydroxide (Mom) 30 ml HSPRN PRN ORAL Constipation 02/05/20 13:15 03/06/20 13:14 Nitroglycerin (Ntg) 0.4 mg Q5M PRN SL Prn Chest Pain 02/05/20 06:15 03/06/20 06:14 02/20/20 14:27 Ondansetron HCl (Zofran) 4 mg Q6H PRN IVP Nausea & Vomiting 02/05/20 13:15 03/06/20 13:14 Pantoprazole (Protonix) 40 mg DAILY ORAL 02/06/20 09:00 03/07/20 08:59 02/22/20 08:16 Piperacillin Sod/ Tazobactam Sod 3.375 gm/Dextrose 110 ml @ 27.5 mls/hr EVERY 8 HOURS IVPB 02/21/20 22:00 02/26/20 21:59 02/22/20 13:37 Polyethylene Glycol (Miralax) 17 gm HSPRN PRN ORAL Constipation 02/05/20 13:15 03/06/20 13:14 Promethazine HCl/ Codeine (Phenergan with Codeine) 5 ml Q4H PRN ORAL For Cough 02/22/20 12:15 03/23/20 12:14 02/22/20 13:33 Remdesivir 100 mg/ Sodium Chloride 250 ml @ 250 mls/hr Q24H IV 02/20/20 16:00 02/23/20 16:59 02/21/20 15:55 Kisha Salazar MD Feb 22, 2020 13:49
--- NOTE | 2020-02-22 15:54 | NUR ---
CASE MANAGEMENT:REVIEW 02/22/20 SI: COVID PNEUMONIA. BACTEREMIA 98.2 79 26 146/84 94% ON BIPAP 15L NA-132 K+5.7 BUN+28 CR+1.4 IS: IV REMDESIVIR Q24 IV ZOSYN Q8HRS AZITHROMYCIN PO QD LINEZOLID PO Q12 LOVENOX SQ Q12 IV DECADRON QD : NOW ON STEP DOWN UNIT DCP: FROM [facility]
[2020-02-22] MEDS: Maintenance Dose:Remdesivir 100mg/NS 230ml x 4 Doses IV SCH ×2 (15:56)
[2020-02-22 16:00] VITALS: BP 123/72
[2020-02-22] MEDS ORDERED: Tubing IV Secondary IV ONE ×2 (16:33)
[2020-02-22] MEDS ORDERED: NS 275ml ONE (16:33)
--- NOTE | 2020-02-22 19:10 | NUR ---
NURSE NOTES: Received report from PRIYANKA Flores. PT awake in bed, afebrile and no respiratory distress noted. Use of accessory muscles of respiration noted. on bipap 18/6 saturating at 98-99%. with left FA 22g and 20 g iv lines, With left upper arm PICC line intact, asymptomatic and patent. needs were attended. bed rails are up and wheels are locked. Continue to monitor the patient
--- NOTE | 2020-02-22 19:18 | NUR ---
RESPIRATORY NOTE: Received pt on BiPAP 18/08, back up rate 16, 100%. Pt on a Full Face mask, skin intact, no redness/breakdowns noted. Pt is alert/awake, follows commands. Pt refuses to wear tape despite explaining the benefits of it. RN aware of tape refusal. B/S andreea. diminished, nonproductive cough. BiPAP plugged into red outlet, alarms on & audible. Pt in no apparent distress at this time. Will continue plan of care.
[2020-02-22 20:00] VITALS: BP 144/75
[2020-02-22] MEDS: Dyna-Hex 2% Top Sol 2oz TOPIC SCH (20:05)
[2020-02-23] VITALS: BP 129/63
--- NOTE | 2020-02-23 00:15 | NUR ---
NURSE NOTES: PT asleep in bed. on bipap pt saturating 96-97%. Pt tolerating well. needs were attended. pt doesn't want to be disturb when asleep. Continue to monitor
[2020-02-23] MEDS: HydrALAZINE 50mg tab ORAL SCH ×5 (00:33→23:44)
[2020-02-23 04:00] VITALS: BP 132/71
[2020-02-23 05:01] LABS: BASOPHILS % (AUTO) 3.2 % (0.0-2.0); EOSINOPHILS % (AUTO) 0.2 % (0.0-3.0); HEMATOCRIT 45.5 % (42.0-52.0); HEMOGLOBIN 15.8 G/DL (14.2-18.0); LYMPHOCYTES % (AUTO) 12.9 % (20.0-45.0); MEAN CORPUSCULAR VOLUME 83 FL (80-99); MONOCYTES % (AUTO) 4.6 % (1.0-10.0); NEUTROPHILS % (AUTO) 79.2 % (45.0-75.0); PLATELET COUNT 179 K/UL (150-450); RED BLOOD COUNT 5.48 M/UL (4.70-6.10); RED CELL DISTRIBUTION WIDTH 14.7 % (11.6-14.8); WHITE BLOOD COUNT 3.6 K/UL (4.8-10.8)
[2020-02-23] MEDS: Piperacillin/Tazobactam 3.375 GM in D5W 110 ML IVPB SCH ×3 (05:39→21:59)
[2020-02-23 05:50] LABS: ALANINE AMINOTRANSFERASE 44 U/L (12-78); ALBUMIN 2.8 G/DL (3.4-5.0); ALBUMIN/GLOBULIN RATIO 0.8 (1.0-2.7); ALKALINE PHOSPHATASE 78 U/L (46-116); ANION GAP 13 mmol/L (5-15); ASPARTATE AMINO TRANSFERASE 39 U/L (15-37); BILIRUBIN,DIRECT 0.3 MG/DL (0.0-0.3); BILIRUBIN,TOTAL 0.5 MG/DL (0.2-1.0); BLOOD UREA NITROGEN 32 mg/dL (7-18); CALCIUM 8.2 MG/DL (8.5-10.1); CARBON DIOXIDE 22 MMOL/L (21-32); CHLORIDE 104 MMOL/L (98-107); SODIUM 139 MMOL/L (136-145)
--- NOTE | 2020-02-23 06:10 | NUR ---
NURSE NOTES: Pt asleep in bed. Medications were given. No discomfort or respiratory distress noted. On bipap settings and saturating at 97-98%. Continue to monitor the patient
--- NOTE | 2020-02-23 06:35 | NUR ---
NURSE NOTES: Pt was assisted to sit on the chair as requested. Pt tolerated well the transfer. Pt saturating 95-96%. No discomforts noted. call light within reach. Continue to monitor the patient.
--- NOTE | 2020-02-23 07:10 | NUR ---
NURSE HAND-OFF REPORT: Important Events on Shift: none Patient Status: stable Diet: cardiac diet Pending Orders: n Pending Results/Labs:n Pending MD notification:n Latest Vital Signs: Temperature 98.1 , Pulse 64 , B/P 162 /47 , Respiratory Rate 24 , O2 SAT 99 , Room Air, O2 Flow Rate 15.0 . Vital Sign Comment: n EKG Rhythm: Sinus Rhythm Rhythm change?: N MD Notified?: N -Dr. Emperatriz INTERIANO Response: Message left await call Latest Hassan Fall Score: 30 Fall Risk: Medium Risk Safety Measures: Call light Within Reach, Bed Alarm Zone 1, Side Rails Side Rails x2, Bed position Low and Locked. Fall Precautions: Patient Fall Education Report given to PRIYANKA Lopez. PT stable in bed
--- NOTE | 2020-02-23 07:30 | NUR ---
NURSE NOTES: Received report from PRIYANKA PELAYO. Patient in bed resting, no active s/s cardiac, respiratory distress noticed at this time. Patient in bed, follow command, AOx4, on BIPAP 18/6 Fio2 100%, O2 sat 98%. PICC line on left upper arm, Left FA 20G, 22G, asymptomatic, patent, intact. Bed in lowest position, side rails upx3, call light within reach, bed alarm on, urinal at easy reach. Will continue to monitor.
[2020-02-23 08:00] VITALS: BP 132/73
[2020-02-23] MEDS: dexAMETHasone 10mg/ml Inj IV SCH (09:00)
[2020-02-23] MEDS: Azithromycin 250mg tab ORAL SCH (09:00)
[2020-02-23] MEDS: Enoxaparin 120 mg inj SUBQ SCH ×2 (09:02→20:10)
--- NOTE | 2020-02-23 10:40 | NUR ---
RADIOLOGY DEPT., CHEST X-RAY DONE.-P.DYE
--- NOTE | 2020-02-23 11:27 | Pulmonology Progress Note ---
Subjective ROS Limited/Unobtainable: Yes Interval Events: tolerating BiPAP Constitutional: Reports: fatigue; Denies: fever HEENT: Repors: no symptoms Respiratory: Reports: dry cough, shortness of breath Cardiovascular: Denies: no symptoms, chest pain, palpitations, other Gastrointestinal/Abdominal: Denies: nausea, vomiting, diarrhea Psychiatric: Denies: depression Skin: Denies: rash Musculoskeletal: Denies: pain Allergies: Coded Allergies: No Known Allergies (Unverified , 02/05/20) Objective Last 24 Hour Vital Signs Date Time Temp Pulse Resp B/P (MAP) Pulse Ox O2 Delivery O2 Flow Rate FiO2 02/23/20 09:01 86 132/73 02/23/20 08:00 100 02/23/20 08:00 Bi-pap 15.0 Bi-pap 15.0 02/23/20 08:00 100.4 86 24 132/73 (92) 99 02/23/20 08:00 75 02/23/20 05:39 162/47 02/23/20 04:00 98.1 64 24 132/71 (91) 99 02/23/20 04:00 Bi-pap 15.0 02/23/20 03:44 66 02/23/20 03:19 77 25 96 100 02/23/20 00:33 129/63 02/23/20 00:26 65 02/23/20 00:00 98.4 63 25 129/63 (85) 98 02/23/20 00:00 Bi-pap 15.0 02/22/20 23:02 88 30 96 100 02/22/20 20:00 Bi-pap 15.0 02/22/20 20:00 98.8 75 22 144/75 (98) 97 02/22/20 19:50 58 02/22/20 19:14 98 Bi-Pap 100 02/22/20 19:14 63 29 98 100 02/22/20 18:00 123/72 02/22/20 18:00 70 123/72 02/22/20 16:00 97.8 70 20 123/72 (89) 96 02/22/20 15:49 70 02/22/20 15:48 Bi-pap 15.0 02/22/20 15:22 75 28 96 100 02/22/20 12:31 146/84 12/22/20 12:00 71 02/22/20 11:51 98.2 79 26 146/84 (104) 94 02/22/20 11:44 Bi-pap 15.0 Intake and Output 02/22/20 02/23/20 19:00 07:00 Intake Total 600 ml 510.0 ml Output Total 800 ml 550 ml Balance -200 ml -40.0 ml Intake Oral 600 ml 400 ml IV Total 110.0 ml Output Urine Total 800 ml 550 ml # Voids 3 # Bowel Movements 2 Objective 02/22 tolerating BiPAP, saturating at 90% 02/21 now on BiPAP, saturating at 95% 02/18 still on 15L NRB mask saturating 88-93% 02/17 now on 15L NRB mask saturating at 91% 02/17/2020 now on 2 lpm NC 02/16/2020 no change 02/15/2020 no major change 02/14/2020 saturating well on RAD; NAD 02/13/2020 pt asleep; saturating well on RA 02/12/2020 sitting up in a chair; saturating well on RA 02/11/2020 back on isolation due to COVID-19 positive status again; currently being worked up for positive blood culture 02/09/2020 off isolation; saturating well on RA 02/08/2020 feeling better; COVID-19 PCR neg 02/07/2020 reports feeling better; COVID-19 PCR pending 02/06/2020 pt laying in bed; reports feeling better General Appearance: WD/WN, no acute distress HEENT: normocephalic, atraumatic Respiratory: chest wall non-tender Cardiovascular: normal rate, regular rhythm Abdomen: normal bowel sounds, soft, non tender, other - obese Laboratory Tests 02/23/20 04:40: White Blood Count 3.6#L, Red Blood Count 5.48, Hemoglobin 15.8, Hematocrit 45.5, Mean Corpuscular Volume 83, Mean Corpuscular Hemoglobin 28.9, Mean Corpuscular Hemoglobin Concent 34.8, Red Cell Distribution Width 14.7, Platelet Count 179, Mean Platelet Volume 6.6, Neutrophils (%) (Auto) 79.2H, Lymphocytes (%) (Auto) 12.9L, Monocytes (%) (Auto) 4.6, Eosinophils (%) (Auto) 0.2, Basophils (%) (Auto) 3.2H, Sodium Level 139, Potassium Level 5.0, Chloride Level 104, Carbon Dioxide Level 22, Anion Gap 13, Blood Urea Nitrogen 32H, Creatinine 1.0, Estimat Glomerular Filtration Rate > 60, Glucose Level 76, Calcium Level 8.2L, Total Bilirubin 0.5, Direct Bilirubin 0.3, Aspartate Amino Transf (AST/SGOT) 39H, Alanine Aminotransferase (ALT/SGPT) 44, Alkaline Phosphatase 78, Total Protein 6 .2L, Albumin 2.8L, Globulin 3.4, Albumin/Globulin Ratio 0.8L Current Medications Medications (Trade) Dose Ordered Sig/Dennis Route PRN Reason Start Time Stop Time Status Last Admin Dose Admin Acetaminophen (Tylenol) 650 mg Q4H PRN ORAL Temp >100.5 02/05/20 13:15 03/06/20 13:14 02/22/20 22:29 Acetaminophen (Tylenol) 650 mg Q4H PRN ORAL Pain (1-3) 02/09/20 08:30 03/10/20 08:29 02/23/20 09:00 Amlodipine Besylate (Norvasc) 5 mg BID ORAL 02/10/20 09:00 03/11/20 08:59 02/23/20 09:01 Azithromycin (Zithromax) 500 mg DAILY ORAL 02/22/20 09:00 02/29/20 08:59 02/23/20 09:00 Bisacodyl (Dulcolax) 10 mg HSPRN PRN RECTAL Constipation 02/05/20 13:15 05/05/20 13:14 Chlorhexidine Gluconate (Marlen-Hex 2%) 1 applic DAILY@2000 TOPIC 02/14/20 20:00 05/14/20 19:59 02/22/20 20:05 Dexamethasone Sodium Phosphate (Decadron 10mg/ ml Inj) 6 mg DAILY IV 02/19/20 14:00 02/28/20 09:01 02/23/20 09:00 Dextrose (Dextrose 50%) 25 ml Q30M PRN IV Hypoglycemia 02/05/20 13:15 05/05/20 13:14 Dextrose (Dextrose 50%) 50 ml Q30M PRN IV Hypoglycemia 02/05/20 13:15 05/05/20 13:14 Enoxaparin Sodium (Lovenox) 110 mg EVERY 12 HOURS SUBQ 02/19/20 21:00 05/19/20 20:59 02/23/20 09:02 Hydralazine HCl (Apresoline) 50 mg Q6HR ORAL 02/17/20 19:30 05/17/20 19:29 02/23/20 05:39 Ibuprofen (Motrin) 600 mg TIDPRN PRN ORAL Breakthrough Pain 02/17/20 19:30 03/18/20 19:29 02/21/20 20:56 Linezolid (Zyvox) 600 mg EVERY 12 HOURS ORAL 02/22/20 21:00 02/27/20 20:59 02/23/20 09:00 Magnesium Hydroxide (Mom) 30 ml HSPRN PRN ORAL Constipation 02/05/20 13:15 03/06/20 13:14 Nitroglycerin (Ntg) 0.4 mg Q5M PRN SL Prn Chest Pain 02/05/20 06:15 03/06/20 06:14 02/20/20 14:27 Ondansetron HCl (Zofran) 4 mg Q6H PRN IVP Nausea & Vomiting 02/05/20 13:15 03/06/20 13:14 Pantoprazole (Protonix) 40 mg DAILY ORAL 02/06/20 09:00 03/07/20 08:59 02/23/20 09:00 Piperacillin Sod/ Tazobactam Sod 3.375 gm/Dextrose 110 ml @ 27.5 mls/hr EVERY 8 HOURS IVPB 02/21/20 22:00 02/26/20 21:59 02/23/20 05:39 Polyethylene Glycol (Miralax) 17 gm HSPRN PRN ORAL Constipation 02/05/20 13:15 03/06/20 13:14 Promethazine HCl/ Codeine (Phenergan with Codeine) 5 ml Q4H PRN ORAL For Cough 02/22/20 12:15 03/23/20 12:14 02/22/20 20:05 Remdesivir 100 mg/ Sodium Chloride 250 ml @ 250 mls/hr Q24H IV 02/20/20 16:00 02/23/20 16:59 02/22/20 15:56 Assessment/Plan Assessment/Plan 1.COVID-19 pneumonia. - last COVID-19 test positive after two negative tests - CTA 02/05/2020 ground-glass and consolidating infiltrates in the dependent portions of both lower lobes and to lesser degree the upper lobes consistent with bilateral pneumonia. No evidence of pulmonary embolus. - CXR 02/17/2020 worsening bilateral infiltrates; on broad spectrum abx per ID - CT chest 02/18 shows Increased extensive patchy ground-glass opacities and densities throughout the lungs, suggestive of Covid 19 infection. - on BiPAP, saturating at 90%; cont oxygen support; monitor saO2 - Mycoplasma pneumoniae IgG 273; M. pneumoniae IgM titer within normal limits - D-dimer 0.90; on full dose Lovenox - restarted decadron and remdesivir per ID due to worsening hypoxia 2. Initial negative rapid COVID-19 gene assay.- however repeat COVID-19 test positive 3. Smoker. 4. DVT ppx - on lovenox 5. Hypertension - on hydralazine, and norvasc - On cardiac diet 6. Blood culture positive for gram positive cocci staph aureus - on Abx - CT abd/pelvis showed no abscess per ID - TTE/ FERNY held off due to COVID-19 status - PICC line in place - repeat blood Cx showed no growth HIV antibody 1&2 neg We will follow carefully. The care for this patient was discussed with my supervising physician Time spent for this case was approximately 31 minutes Edilson Marinelli Feb 23, 2020 11:27
[2020-02-23 12:00] VITALS: BP 168/74
--- NOTE | 2020-02-23 12:51 | Diagnostic Imaging Report ---
As Indication: Reason For Exam: INFECT Technique: One view of the chest Comparison: 02/20/2020 Findings: Allowing for differences in exposure technique, bilateral mid and lower lung infiltrates are probably unchanged. The heart size is normal. The pleural spaces are clear. Impression: Unchanged, over 4 days, findings as above.
--- NOTE | 2020-02-23 14:19 | NUR ---
CASE MANAGEMENT:REVIEW 02/23/20 SI: COVID PNEUMONIA. BACTEREMIA 100.4 86 24 132/73 92% ON BIPAP 15L/100% WBC-3.6 IS: IV REMDESIVIR Q24 IV ZOSYN Q8HRS AZITHROMYCIN PO QD ZYVOX PO Q12 LOVENOX SQ Q12 IV DECADRON QD : NOW ON STEP DOWN UNIT DCP: FROM [facility]
--- NOTE | 2020-02-23 14:50 | Infectious Diseases Prog Note ---
Assessment/Plan Assessment/Plan ASSESSMENT AND PLAN: 1. staph aureus bacteremia/mssa, ? source, ? endocarditis, sepsis, leukocytosis, ? CAP, PJP less likely with HIV negative and steroids < 1 month covid-19 +, hypoxia, sob, chest x-ray worse, ? PE, ? HCAP/aspiration pna mild Nguyễn - cr - 1.4 - hold vancomycin - cr better - zosyn zyvox, azithromycin - day # 15 post negative surveillance blood cultures - on dexamethasone and remdesivir for worsening hypoxia - CT abdomen and pelvis without abscess - FERNY held secondary to + covid-19 test - may do as outpatient, TTE - no vegetations mentioned per cardiology - monitor labs, f/u blood cultures negative, legionella pending, elevated inflammatory markers noted, Il-6 level pending - d/w with Dr. Mata - CT chest noted - 02/19/20 - increased extensive infiltrates - f/u on legionella and Il-6 level, cocci pending 2. covid-19 isolation 3. Hypertension history. Blood pressure treatment primary care team. 4. Elevated blood sugars. Blood sugar treatment per primary care team. 5. No known drug allergies. 6. Social history is positive for smoking. 7. Family history is noncontributory. 8. MAR was noted. 9. Case was discussed with RN. 10. Continue treatment per primary consultants. Subjective Constitutional: Reports: fever, other - on bipap, patient says feels less sob HEENT: Reports: congestion Respiratory: Reports: shortness of breath Cardiovascular: Denies: chest pain Gastrointestinal/Abdominal: Denies: nausea, vomiting Genitourinary: Denies: hematuria Neurologic: Denies: confusion Psychiatric: Reports: other - NA Skin: Denies: rash Hematologic: Denies: bleeding Musculoskeletal: Denies: pain Allergies: Coded Allergies: No Known Allergies (Unverified , 02/05/20) Objective Last 24 Hour Vital Signs Date Time Temp Pulse Resp B/P (MAP) Pulse Ox O2 Delivery O2 Flow Rate FiO2 02/23/20 12:52 168/74 02/23/20 12:35 80 22 94 100 02/23/20 12:35 92 Bi-Pap 100 02/23/20 12:00 72 02/23/20 12:00 98.4 73 24 168/74 (105) 98 02/23/20 12:00 Bi-pap 15.0 Bi-pap 15.0 02/23/20 09:01 86 132/73 02/23/20 08:00 100 02/23/20 08:00 Bi-pap 15.0 Bi-pap 15.0 02/23/20 08:00 100.4 86 24 132/73 (92) 99 02/23/20 08:00 75 02/23/20 05:39 162/47 02/23/20 04:00 98.1 64 24 132/71 (91) 99 02/23/20 04:00 Bi-pap 15.0 02/23/20 03:44 66 02/23/20 03:19 77 25 96 100 02/23/20 00:33 129/63 02/23/20 00:26 65 02/23/20 00:00 98.4 63 25 129/63 (85) 98 02/23/20 00:00 Bi-pap 15.0 02/22/20 23:02 88 30 96 100 02/22/20 20:00 Bi-pap 15.0 02/22/20 20:00 98.8 75 22 144/75 (98) 97 02/22/20 19:50 58 02/22/20 19:14 98 Bi-Pap 100 02/22/20 19:14 63 29 98 100 02/22/20 18:00 123/72 02/22/20 18:00 70 123/72 02/22/20 16:00 97.8 70 20 123/72 (89) 96 02/22/20 15:49 70 02/22/20 15:48 Bi-pap 15.0 02/22/20 15:22 75 28 96 100 Height (Feet): 5 Height (Inches): 10.00 Weight (Pounds): 240 General Appearance: no acute distress HEENT: normocephalic, atraumatic, anicteric, mucous membranes moist Respiratory/Chest: accessory muscle use, crackles/rales, rhonchi - bilaterally Cardiovascular: normal rate, regular rhythm, no gallop/murmur, no JVD Abdomen: normal bowel sounds, soft, non tender, no organomegaly, non distended Genitourinary: other - no joseph Extremities: no cyanosis Skin: no rash 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 The infiltrates are typical for Covid 19. No evidence of pulmonary embolus. CT abdomen and pelvis: IMPRESSION: 1. Scattered hepatic hypodense lesions, too small to characterize on this examination without intravenous contrast. 2. Colonic diverticulosis without evidence of acute diverticulitis. 3. Scattered enlarged mesenteric lymph nodes, presumably reactive. teral pneumonia. The infiltrates are typical for Covid 19. No evidence of pulmonary embolus. Chest x-ray - 12/19/19 - Indication: Shortness of breath Technique: One view of the chest Comparison: 02/17/2020 Findings: Interim worsening of bilateral infiltrates, particularly on the right. The heart is borderline enlarged. The pleural spaces are clear. Left arm PICC is again demonstrated Impression: Worsening bilateral infiltrates over one day, likely pneumonia CT chest - 02/19/20 - IMPRESSION: Increased extensive patchy ground-glass opacities and densities throughout the lungs, suggestive of Covid 19 infection. Chest x-ray 02/23/20 - Procedure: XRAY Chest 1v As Indication: Reason For Exam: INFECT Technique: One view of the chest Comparison: 02/20/2020 Findings: Allowing for differences in exposure technique, bilateral mid and lower lung infiltrates are probably unchanged. The heart size is normal. The pleural spaces are clear. Impression: Unchanged, over 4 days, findings as above. Microbiology Date/Time Source Procedure Growth Status 02/17/20 19:00 Urine,Clean Catch Urine Culture - Final NO GROWTH AFTER 48 HOURS Complete 02/17/20 16:00 Blood Blood Culture - Preliminary NO GROWTH AFTER 4 DAYS Resulted 02/10/20 06:30 Nasopharynx SARS-CoV-2 RdRp Gene Assay - Final Complete Laboratory Tests Test 02/23/20 04:40 White Blood Count 3.6 K/UL (4.8-10.8) #L Red Blood Count 5.48 M/UL (4.70-6.10) Hemoglobin 15.8 G/DL (14.2-18.0) Hematocrit 45.5 % (42.0-52.0) Mean Corpuscular Volume 83 FL (80-99) Mean Corpuscular Hemoglobin 28.9 PG (27.0-31.0) Mean Corpuscular Hemoglobin Concent 34.8 G/DL (32.0-36.0) Red Cell Distribution Width 14.7 % (11.6-14.8) Platelet Count 179 K/UL (150-450) Mean Platelet Volume 6.6 FL (6.5-10.1) Neutrophils (%) (Auto) 79.2 % (45.0-75.0) H Lymphocytes (%) (Auto) 12.9 % (20.0-45.0) L Monocytes (%) (Auto) 4.6 % (1.0-10.0) Eosinophils (%) (Auto) 0.2 % (0.0-3.0) Basophils (%) (Auto) 3.2 % (0.0-2.0) H Sodium Level 139 MMOL/L (136-145) Potassium Level 5.0 MMOL/L (3.5-5.1) Chloride Level 104 MMOL/L (98-107) Carbon Dioxide Level 22 MMOL/L (21-32) Anion Gap 13 mmol/L (5-15) Blood Urea Nitrogen 32 mg/dL (7-18) H Creatinine 1.0 MG/DL (0.55-1.30) Estimat Glomerular Filtration Rate > 60 mL/min (>60) Glucose Level 76 MG/DL (74-106) Calcium Level 8.2 MG/DL (8.5-10.1) L Total Bilirubin 0.5 MG/DL (0.2-1.0) Direct Bilirubin 0.3 MG/DL (0.0-0.3) Aspartate Amino Transf (AST/SGOT) 39 U/L (15-37) H Alanine Aminotransferase (ALT/SGPT) 44 U/L (12-78) Alkaline Phosphatase 78 U/L (46-116) Total Protein 6.2 G/DL (6.4-8.2) L Albumin 2.8 G/DL (3.4-5.0) L Globulin 3.4 g/dL Albumin/Globulin Ratio 0.8 (1.0-2.7) L Current Medications Medications (Trade) Dose Ordered Sig/Dennis Route PRN Reason Start Time Stop Time Status Last Admin Dose Admin Acetaminophen (Tylenol) 650 mg Q4H PRN ORAL Temp >100.5 02/05/20 13:15 03/06/20 13:14 02/22/20 22:29 Acetaminophen (Tylenol) 650 mg Q4H PRN ORAL Pain (1-3) 02/09/20 08:30 03/10/20 08:29 02/23/20 09:00 Amlodipine Besylate (Norvasc) 5 mg BID ORAL 02/10/20 09:00 03/11/20 08:59 02/23/20 09:01 Azithromycin (Zithromax) 500 mg DAILY ORAL 02/22/20 09:00 02/29/20 08:59 02/23/20 09:00 Bisacodyl (Dulcolax) 10 mg HSPRN PRN RECTAL Constipation 02/05/20 13:15 05/05/20 13:14 Chlorhexidine Gluconate (Marlen-Hex 2%) 1 applic DAILY@1999 TOPIC 02/14/20 20:00 05/14/20 19:59 02/22/20 20:05 Dexamethasone Sodium Phosphate (Decadron 10mg/ ml Inj) 6 mg DAILY IV 02/19/20 14:00 02/28/20 09:01 02/23/20 09:00 Dextrose (Dextrose 50%) 25 ml Q30M PRN IV Hypoglycemia 02/05/20 13:15 05/05/20 13:14 Dextrose (Dextrose 50%) 50 ml Q30M PRN IV Hypoglycemia 02/05/20 13:15 05/05/20 13:14 Enoxaparin Sodium (Lovenox) 110 mg EVERY 12 HOURS SUBQ 02/19/20 21:00 05/19/20 20:59 02/23/20 09:02 Hydralazine HCl (Apresoline) 50 mg Q6HR ORAL 02/17/20 19:30 05/17/20 19:29 02/23/20 12:52 Ibuprofen (Motrin) 600 mg TIDPRN PRN ORAL Breakthrough Pain 02/17/20 19:30 03/18/20 19:29 02/21/20 20:56 Linezolid (Zyvox) 600 mg EVERY 12 HOURS ORAL 02/22/20 21:00 02/27/20 20:59 02/23/20 09:00 Magnesium Hydroxide (Mom) 30 ml HSPRN PRN ORAL Constipation 02/05/20 13:15 03/06/20 13:14 Ondansetron HCl (Zofran) 4 mg Q6H PRN IVP Nausea & Vomiting 02/05/20 13:15 03/06/20 13:14 Pantoprazole (Protonix) 40 mg DAILY ORAL 02/06/20 09:00 03/07/20 08:59 02/23/20 09:00 Piperacillin Sod/ Tazobactam Sod 3.375 gm/Dextrose 110 ml @ 27.5 mls/hr EVERY 8 HOURS IVPB 02/21/20 22:00 02/26/20 21:59 02/23/20 13:12 Polyethylene Glycol (Miralax) 17 gm HSPRN PRN ORAL Constipation 02/05/20 13:15 03/06/20 13:14 Promethazine HCl/ Codeine (Phenergan with Codeine) 5 ml Q4H PRN ORAL For Cough 02/22/20 12:15 03/23/20 12:14 02/22/20 20:05 Remdesivir 100 mg/ Sodium Chloride 250 ml @ 250 mls/hr Q24H IV 02/20/20 16:00 02/23/20 16:59 02/22/20 15:56 Kisha Salazar MD Feb 23, 2020 14:50
[2020-02-23] MEDS: Maintenance Dose:Remdesivir 100mg/NS 230ml x 4 Doses IV SCH ×2 (15:06)
[2020-02-23 16:00] VITALS: BP 149/73
[2020-02-23] MEDS ORDERED: NS 275ml ONE (16:18)
--- NOTE | 2020-02-23 18:44 | Cardiology Progress Note ---
Assessment/Plan Assessment/Plan Acute covid 19 pneumonia chest pain possible M/S infiltrate bilat bacteremia drug free for 28 years his of ivda per rn cough with deep inspiration but now agrees to bipap after resisting for so many days echo normal wall motion last week ct finding reportedly highly suggestive of covid 19 now wosrse on repeat ct 02/19/2020 3rd test positive for covid after initial 2 were neg d/w rn bnp normal 02/17 and 02/[address] of the chest done most recently showed extensive infiltrate felt to be due to worsening covid 19 infection now back on treatment with covid medications on full dose anticoagulation for potential PE as a cause of hypoxemia continue supportive care remain on bipap saturating wellstill Subjective Subjective pt now in covid 19 isolation per rn: per PA Interval Events: tolerating BiPAP Constitutional: Reports: fatigue; Denies: fever HEENT: Repors: no symptoms Respiratory: Reports: dry cough, shortness of breath Cardiovascular: Denies: no symptoms, chest pain, palpitations, other Gastrointestinal/Abdominal: Denies: nausea, vomiting, diarrhea Objective Last 24 Hour Vital Signs Date Time Temp Pulse Resp B/P (MAP) Pulse Ox O2 Delivery O2 Flow Rate FiO2 02/23/20 16:11 86 25 100 100 02/23/20 16:00 Bi-pap 15.0 Bi-pap 15.0 02/23/20 16:00 100 02/23/20 12:52 168/74 02/23/20 12:35 80 22 94 100 02/23/20 12:35 92 Bi-Pap 100 02/23/20 12:00 72 02/23/20 12:00 98.4 73 24 168/74 (105) 98 02/23/20 12:00 100 02/23/20 12:00 Bi-pap 15.0 Bi-pap 15.0 02/23/20 09:01 86 132/73 02/23/20 08:00 100 02/23/20 08:00 Bi-pap 15.0 Bi-pap 15.0 02/23/20 08:00 100.4 86 24 132/73 (92) 99 02/23/20 08:00 75 02/23/20 07:00 81 28 94 94 02/23/20 05:39 162/47 02/23/20 04:00 98.1 64 24 132/71 (91) 99 02/23/20 04:00 Bi-pap 15.0 02/23/20 03:44 66 02/23/20 03:19 77 25 96 100 02/23/20 00:33 129/63 02/23/20 00:26 65 02/23/20 00:00 98.4 63 25 129/63 (85) 98 02/23/20 00:00 Bi-pap 15.0 02/22/20 23:02 88 30 96 100 02/22/20 20:00 Bi-pap 15.0 02/22/20 20:00 98.8 75 22 144/75 (98) 97 02/22/20 19:50 58 02/22/20 19:14 98 Bi-Pap 100 02/22/20 19:14 63 29 98 100 Intake and Output 02/22/20 02/23/20 19:00 07:00 Intake Total 600 ml 510.0 ml Output Total 800 ml 550 ml Balance -200 ml -40.0 ml Intake Oral 600 ml 400 ml IV Total 110.0 ml Output Urine Total 800 ml 550 ml # Voids 3 # Bowel Movements 2 Laboratory Tests Test 02/23/20 04:40 White Blood Count 3.6 K/UL (4.8-10.8) #L Red Blood Count 5.48 M/UL (4.70-6.10) Hemoglobin 15.8 G/DL (14.2-18.0) Hematocrit 45.5 % (42.0-52.0) Mean Corpuscular Volume 83 FL (80-99) Mean Corpuscular Hemoglobin 28.9 PG (27.0-31.0) Mean Corpuscular Hemoglobin Concent 34.8 G/DL (32.0-36.0) Red Cell Distribution Width 14.7 % (11.6-14.8) Platelet Count 179 K/UL (150-450) Mean Platelet Volume 6.6 FL (6.5-10.1) Neutrophils (%) (Auto) 79.2 % (45.0-75.0) H Lymphocytes (%) (Auto) 12.9 % (20.0-45.0) L Monocytes (%) (Auto) 4.6 % (1.0-10.0) Eosinophils (%) (Auto) 0.2 % (0.0-3.0) Basophils (%) (Auto) 3.2 % (0.0-2.0) H Sodium Level 139 MMOL/L (136-145) Potassium Level 5.0 MMOL/L (3.5-5.1) Chloride Level 104 MMOL/L (98-107) Carbon Dioxide Level 22 MMOL/L (21-32) Anion Gap 13 mmol/L (5-15) Blood Urea Nitrogen 32 mg/dL (7-18) H Creatinine 1.0 MG/DL (0.55-1.30) Estimat Glomerular Filtration Rate > 60 mL/min (>60) Glucose Level 76 MG/DL (74-106) Calcium Level 8.2 MG/DL (8.5-10.1) L Total Bilirubin 0.5 MG/DL (0.2-1.0) Direct Bilirubin 0.3 MG/DL (0.0-0.3) Aspartate Amino Transf (AST/SGOT) 39 U/L (15-37) H Alanine Aminotransferase (ALT/SGPT) 44 U/L (12-78) Alkaline Phosphatase 78 U/L (46-116) Total Protein 6.2 G/DL (6.4-8.2) L Albumin 2.8 G/DL (3.4-5.0) L Globulin 3.4 g/dL Albumin/Globulin Ratio 0.8 (1.0-2.7) L Objective pt in covid 19 isoaltion with acute infection per ID Respiratory/Chest: accessory muscle use, crackles/rales, rhonchi - bilaterally Cardiovascular: normal rate, regular rhythm, no gallop/murmur, no JVD Abdomen: normal bowel sounds, soft, non tender, no organomegaly, non distended Genitourinary: other - no joseph Extremities: no cyanosis Manan Awan MD Feb 23, 2020 18:44
--- NOTE | 2020-02-23 19:15 | NUR ---
NURSE HAND-OFF REPORT: Important Events on Shift:NA Patient Status: stable, on BIPAP Diet: cardiac, patient refused to eat Pending Orders: na Pending Results/Labs:na Pending notification:na Latest Vital Signs: Temperature 98.9 , Pulse 86 , B/P 149 /73 , Respiratory Rate 26 , O2 SAT 97 , Room Air, O2 Flow Rate 15.0 . Vital Sign Comment: stable EKG Rhythm: Sinus Rhythm Rhythm change?: N MD Notified?: N -Dr. Emperatriz INTERIANO Response: Message left await call Latest Hassan Fall Score: 30 Fall Risk: Medium Risk Safety Measures: Call light Within Reach, Bed Alarm Zone 1, Side Rails Side Rails x2, Bed position Low and Locked. Fall Precautions: Patient Fall Education Report given to PRIYANKA Riley.
--- NOTE | 2020-02-23 19:20 | NUR ---
NURSE NOTES: Received report from PRIYANKA Lopez. Pt is asleep, on Bipap tolerating setting of 18/6 100% FiO2 saturating 96%. Vital signs are stable. No sign of distress. PICC line in left upper arm is intact and patent, left forearm 22G and 20G peripheral IVs are intact and patent. No skin issue is noted. Bed is locked and in lowest position, bed alarm on, call light is with the pt. Fall precautions initiated. Lab results reviewed. Will continue to monitor the pt. Will continue with the plan of care.
[2020-02-23 20:00] VITALS: BP 154/53
[2020-02-23] MEDS: Dyna-Hex 2% Top Sol 2oz TOPIC SCH (20:09)
[2020-02-23] MEDS: Promethazine/Codeine 5ml UD ORAL PRN (22:19)
[2020-02-24] VITALS: BP 146/85
--- NOTE | 2020-02-24 01:30 | NUR ---
NURSE NOTES: Pt is asleep, not in distress. On Bipap with saturation 90-92%. Vital signs are stable. Denies pain. Will continue to monitor pt.
[2020-02-24 04:00] VITALS: BP 161/99
[2020-02-24] MEDS: HydrALAZINE 50mg tab ORAL SCH ×3 (05:06→16:59)
[2020-02-24] MEDS: Piperacillin/Tazobactam 3.375 GM in D5W 110 ML IVPB SCH (05:11)
--- NOTE | 2020-02-24 05:30 | NUR ---
NURSE NOTES: Pt sat on chair and watch tv. Tolerating Bipap setting and saturating 93%. No sign of distress. Pt said he's feeling better. Medications administered per order. Will continue to monitor pt.
--- NOTE | 2020-02-24 06:32 | NUR ---
RD ASSESSMENT & RECOMMENDATIONS SEE CARE ACTIVITY FOR COMPLETE ASSESSMENT DAILY ESTIMATED NEEDS: Needs based on Pulmonary, cardiac 87kg abw 23-28 kcals/kg 1310-6589 total kcals 1-1.5 g protein/kg 87-131 g total protein 25-30 mL/kg 4614-5064 total fluid mLs NUTRITION DIAGNOSIS: Decreased sodium and fat needs r/t HTN and obesity as evidenced by pt w/ cardiac history, elev BP (159/98-> now improved, on BP meds), BMI >30, obese per guidelines. CURRENT DIET: Cardiac + Ensure x3 PO DIET RECOMMENDATIONS: CARDIAC DIET / texture as tolerated ENTERAL NUTRITION RECOMMENDATIONS: POOR PO INTAKE D/T BIPAP-> REC NON ORAL FEEDS IF MEDICALLY ABLE ADDITIONAL RECOMMENDATIONS: 1) Maintain calibrated bedscale wts; obtain a standing wt as able 2) Obtain HgA1C for eval 3) Added proteins portions to trays 4) Monitor PO intake: decreased intake on 02/14 per EMR Now refusal of meals x3 days, add NEPRO TID w/ meals Non oral feeds if medically appropriate w/ Bipap.
--- NOTE | 2020-02-24 07:15 | NUR ---
NURSE HAND-OFF REPORT: Important Events on Shift:None Patient Status: Full code Diet: Cardiac Diet Pending Orders: N Pending Results/Labs:N Pending MD notification:N Latest Vital Signs: Temperature 98.2 , Pulse 79 , B/P 161 /99 , Respiratory Rate 20 , O2 SAT 93 , Room Air, O2 Flow Rate 15.0 . Vital Sign Comment: stable EKG Rhythm: Sinus Rhythm Rhythm change?: N MD Notified?: N -Dr. Emperatriz INTERIANO Response: Message left await call Latest Hassan Fall Score: 30 Fall Risk: Medium Risk Safety Measures: Call light Within Reach, Bed Alarm Zone 1, Side Rails Side Rails x2, Bed position Low and Locked. Fall Precautions: Patient Fall Education Report given to PRIYANKA Mitchell.
[2020-02-24 08:00] VITALS: BP 155/72
[2020-02-24] MEDS: Azithromycin 250mg tab ORAL SCH (09:13)
[2020-02-24] MEDS: dexAMETHasone 10mg/ml Inj IV SCH (09:13)
[2020-02-24] MEDS: Enoxaparin 120 mg inj SUBQ SCH ×2 (09:14→21:11)
[2020-02-24 09:40] LABS: HEMATOCRIT 42.1 % (42.0-52.0); HEMOGLOBIN 14.7 G/DL (14.2-18.0); MEAN CORPUSCULAR VOLUME 82 FL (80-99); PLATELET COUNT 250 K/UL (150-450); RED BLOOD COUNT 5.16 M/UL (4.70-6.10); RED CELL DISTRIBUTION WIDTH 14.2 % (11.6-14.8); WHITE BLOOD COUNT 10.2 K/UL (4.8-10.8)
[2020-02-24 10:00] LABS: ALANINE AMINOTRANSFERASE 25 U/L (12-78); ALBUMIN 2.2 G/DL (3.4-5.0); ALBUMIN/GLOBULIN RATIO 0.5 (1.0-2.7); ALKALINE PHOSPHATASE 109 U/L (46-116); ANION GAP 6 mmol/L (5-15); ASPARTATE AMINO TRANSFERASE 35 U/L (15-37); BILIRUBIN,TOTAL 0.6 MG/DL (0.2-1.0); BLOOD UREA NITROGEN 24 mg/dL (7-18); CALCIUM 8.2 MG/DL (8.5-10.1); CARBON DIOXIDE 28 MMOL/L (21-32); CHLORIDE 106 MMOL/L (98-107); CREATININE 1.1 MG/DL (0.55-1.30); POTASSIUM 4.1 MMOL/L (3.5-5.1); SODIUM 140 MMOL/L (136-145)
[2020-02-24 12:00] VITALS: BP 128/89
--- NOTE | 2020-02-24 12:37 | Infectious Diseases Prog Note ---
Assessment/Plan Assessment/Plan ASSESSMENT AND PLAN: 1. staph aureus bacteremia/mssa, ? source, ? endocarditis, sepsis, leukocytosis, ? CAP, PJP less likely with HIV negative and steroids < 1 month covid-19 +, hypoxia, sob, chest x-ray worse, ? PE, ? HCAP/aspiration pna mild Nguyễn - cr - 1.4 - hold vancomycin - cr better recurrent fevers - ? fungal, ? OI - meropenem, micafungin, vancomycin - day # 16 mssa tx post neg blood cultures - on dexamethasone and remdesivir for worsening hypoxia - finishing remdesivir - CT abdomen and pelvis without abscess - FERNY held secondary to + covid-19 test - may do as outpatient, TTE - no vegetations mentioned per cardiology - monitor labs, f/u blood cultures negative, legionella pending, elevated inflammatory markers noted, Il-6 level pending - re-culture patient, check LDH, crp, b-d-glucan - CT chest noted - 02/19/20 - increased extensive infiltrates - f/u on legionella and Il-6 level, cocci pending 2. covid-19 isolation 3. Hypertension history. Blood pressure treatment primary care team. 4. Elevated blood sugars. Blood sugar treatment per primary care team. 5. No known drug allergies. 6. Social history is positive for smoking. 7. Family history is noncontributory. 8. MAR was noted. 9. Case was discussed with RN. 10. Continue treatment per primary consultants. Subjective Constitutional: Reports: fever, other - on bipap HEENT: Reports: congestion Respiratory: Reports: shortness of breath Cardiovascular: Denies: chest pain Gastrointestinal/Abdominal: Denies: nausea, vomiting, diarrhea Genitourinary: Reports: other - no joseph Neurologic: Denies: headache Allergies: Coded Allergies: No Known Allergies (Unverified , 02/05/20) Objective Last 24 Hour Vital Signs Date Time Temp Pulse Resp B/P (MAP) Pulse Ox O2 Delivery O2 Flow Rate FiO2 02/24/20 12:00 100 02/24/20 12:00 Bi-pap 15.0 Bi-pap 15.0 02/24/20 09:13 100 155/79 02/24/20 08:00 100 02/24/20 08:00 Bi-pap 15.0 Bi-pap 15.0 02/24/20 08:00 99.5 100 20 155/72 (99) 90 02/24/20 08:00 86 02/24/20 05:06 161/99 02/24/20 04:43 98.2 02/24/20 04:00 100 02/24/20 04:00 79 02/24/20 04:00 Bi-pap 15.0 Bi-pap 15.0 02/24/20 04:00 101.8 99 20 161/99 (119) 93 02/24/20 03:21 102 24 95 100 02/24/20 00:00 99.1 90 26 146/85 (105) 91 02/24/20 00:00 73 02/24/20 00:00 100 02/24/20 00:00 Bi-pap 15.0 Bi-pap 15.0 02/23/20 23:44 146/85 02/23/20 23:16 82 26 92 100 02/23/20 20:00 97.9 81 22 154/53 (86) 93 02/23/20 20:00 100 02/23/20 20:00 57 02/23/20 20:00 Bi-pap 15.0 Bi-pap 15.0 02/23/20 18:44 149/73 02/23/20 18:44 86 149/73 02/23/20 18:26 61 26 97 100 02/23/20 18:12 92 Bi-Pap 100 02/23/20 16:11 86 25 100 100 02/23/20 16:00 Bi-pap 15.0 Bi-pap 15.0 02/23/20 16:00 100 02/23/20 16:00 97 02/23/20 16:00 98.9 79 24 149/73 (98) 92 02/23/20 12:52 168/74 02/23/20 12:35 80 22 94 100 02/23/20 12:35 92 Bi-Pap 100 Height (Feet): 5 Height (Inches): 10.00 Weight (Pounds): 240 General Appearance: no acute distress HEENT: normocephalic, atraumatic, anicteric Respiratory/Chest: crackles/rales, rhonchi - bilaterally Cardiovascular: normal rate, regular rhythm Abdomen: normal bowel sounds, soft, non tender, no organomegaly CT chest: IMPRESSION: There are mild subpleural ground-glass and consolidating infiltrates in the dependent portions of both lower lobes and to lesser degree the upper lobes consistent with bilateral pneumonia. The infiltrates are typical for Covid 19. No evidence of pulmonary embolus. CT abdomen and pelvis: IMPRESSION: 1. Scattered hepatic hypodense lesions, too small to characterize on this examination without intravenous contrast. 2. Colonic diverticulosis without evidence of acute diverticulitis. 3. Scattered enlarged mesenteric lymph nodes, presumably reactive. teral pneumonia. The infiltrates are typical for Covid 19. No evidence of pulmonary embolus. Chest x-ray - 12/19/19 - Indication: Shortness of breath Technique: One view of the chest Comparison: 02/17/2020 Findings: Interim worsening of bilateral infiltrates, particularly on the right. The heart is borderline enlarged. The pleural spaces are clear. Left arm PICC is again demonstrated Impression: Worsening bilateral infiltrates over one day, likely pneumonia CT chest - 02/19/20 - IMPRESSION: Increased extensive patchy ground-glass opacities and densities throughout the lungs, suggestive of Covid 19 infection. Chest x-ray 02/23/20 - Procedure: XRAY Chest 1v As Indication: Reason For Exam: INFECT Technique: One view of the chest Comparison: 02/20/2020 Findings: Allowing for differences in exposure technique, bilateral mid and lower lung infiltrates are probably unchanged. The heart size is normal. The pleural spaces are clear. Impression: Unchanged, over 4 days, findings as above. Laboratory Tests Test 02/24/20 09:00 White Blood Count 10.2 K/UL (4.8-10.8) # Red Blood Count 5.16 M/UL (4.70-6.10) Hemoglobin 14.7 G/DL (14.2-18.0) Hematocrit 42.1 % (42.0-52.0) Mean Corpuscular Volume 82 FL (80-99) Mean Corpuscular Hemoglobin 28.4 PG (27.0-31.0) Mean Corpuscular Hemoglobin Concent 34.8 G/DL (32.0-36.0) Red Cell Distribution Width 14.2 % (11.6-14.8) Platelet Count 250 K/UL (150-450) Mean Platelet Volume 6.5 FL (6.5-10.1) Neutrophils (%) (Auto) % (45.0-75.0) Lymphocytes (%) (Auto) % (20.0-45.0) Monocytes (%) (Auto) % (1.0-10.0) Eosinophils (%) (Auto) % (0.0-3.0) Basophils (%) (Auto) % (0.0-2.0) Neutrophils % (Manual) Pending Lymphocytes % (Manual) Pending Platelet Estimate Pending Platelet Morphology Pending Sodium Level 140 MMOL/L (136-145) Potassium Level 4.1 MMOL/L (3.5-5.1) Chloride Level 106 MMOL/L (98-107) Carbon Dioxide Level 28 MMOL/L (21-32) Anion Gap 6 mmol/L (5-15) Blood Urea Nitrogen 24 mg/dL (7-18) H Creatinine 1.1 MG/DL (0.55-1.30) Estimat Glomerular Filtration Rate > 60 mL/min (>60) Glucose Level 99 MG/DL (74-106) Calcium Level 8.2 MG/DL (8.5-10.1) L Total Bilirubin 0.6 MG/DL (0.2-1.0) Aspartate Amino Transf (AST/SGOT) 35 U/L (15-37) Alanine Aminotransferase (ALT/SGPT) 25 U/L (12-78) Alkaline Phosphatase 109 U/L (46-116) Total Protein 6.6 G/DL (6.4-8.2) Albumin 2.2 G/DL (3.4-5.0) L Globulin 4.4 g/dL Albumin/Globulin Ratio 0.5 (1.0-2.7) L Current Medications Medications (Trade) Dose Ordered Sig/Dennis Route PRN Reason Start Time Stop Time Status Last Admin Dose Admin Acetaminophen (Tylenol) 650 mg Q4H PRN ORAL Temp >100.5 02/05/20 13:15 03/06/20 13:14 02/24/20 04:13 Acetaminophen (Tylenol) 650 mg Q4H PRN ORAL Pain (1-3) 02/09/20 08:30 03/10/20 08:29 02/23/20 09:00 Amlodipine Besylate (Norvasc) 5 mg BID ORAL 02/10/20 09:00 03/11/20 08:59 02/24/20 09:13 Azithromycin (Zithromax) 500 mg DAILY ORAL 02/22/20 09:00 02/29/20 08:59 02/24/20 09:13 Bisacodyl (Dulcolax) 10 mg HSPRN PRN RECTAL Constipation 02/05/20 13:15 05/05/20 13:14 Chlorhexidine Gluconate (Marlen-Hex 2%) 1 applic DAILY@2000 TOPIC 02/14/20 20:00 05/14/20 19:59 02/23/20 20:09 Dexamethasone Sodium Phosphate (Decadron 10mg/ ml Inj) 6 mg DAILY IV 02/19/20 14:00 02/28/20 09:01 02/24/20 09:13 Dextrose (Dextrose 50%) 25 ml Q30M PRN IV Hypoglycemia 02/05/20 13:15 05/05/20 13:14 Dextrose (Dextrose 50%) 50 ml Q30M PRN IV Hypoglycemia 02/05/20 13:15 05/05/20 13:14 Enoxaparin Sodium (Lovenox) 110 mg EVERY 12 HOURS SUBQ 02/19/20 21:00 05/19/20 20:59 02/24/20 09:14 Hydralazine HCl (Apresoline) 50 mg Q6HR ORAL 02/17/20 19:30 05/17/20 19:29 02/24/20 05:06 Ibuprofen (Motrin) 600 mg TIDPRN PRN ORAL Breakthrough Pain 02/17/20 19:30 03/18/20 19:29 02/21/20 20:56 Magnesium Hydroxide (Mom) 30 ml HSPRN PRN ORAL Constipation 02/05/20 13:15 03/06/20 13:14 Meropenem 1 gm/ Sodium Chloride 100 ml @ 200 mls/hr Q8HR IVPB 02/24/20 14:00 02/29/20 13:59 Ondansetron HCl (Zofran) 4 mg Q6H PRN IVP Nausea & Vomiting 02/05/20 13:15 03/06/20 13:14 Pantoprazole (Protonix) 40 mg DAILY ORAL 02/06/20 09:00 03/07/20 08:59 02/24/20 09:13 Polyethylene Glycol (Miralax) 17 gm HSPRN PRN ORAL Constipation 02/05/20 13:15 03/06/20 13:14 Promethazine HCl/ Codeine (Phenergan with Codeine) 5 ml Q4H PRN ORAL For Cough 02/22/20 12:15 03/23/20 12:14 02/23/20 22:19 Vancomycin HCl ([facility] pharmacy to dose) 1 ea DAILY PRN MISC Per rx protocol 02/24/20 12:45 03/25/20 12:44 Kisha Castillo MD Feb 24, 2020 12:37
--- NOTE | 2020-02-24 13:17 | NUR ---
CASE MANAGEMENT:REVIEW 02/24/20 SI: COVID PNEUMONIA. BACTEREMIA 101.8 100 20 155/72 90% ON BIPAP 15L/100% BUN+24 IS: IV VANCOMYCIN Q8HRS IV MICAFUNGIN Q24 IV MEROPENEM Q8HRS LOVENOX SQ Q12 IV DECADRON QD : NOW ON STEP DOWN UNIT DCP: COMPLETED REMDESIVIR
[2020-02-24] MEDS ORDERED: NS IVPB SCH (14:00)
[2020-02-24] MEDS ORDERED: MICAFUNGIN IVPB SCH (14:00)
[2020-02-24 14:37] LABS: APPEARANCE,URINE CLEAR; BILIRUBIN, URINE NEGATIVE (NEGATIVE); GLUCOSE, URINE (UA) NEGATIVE (NEGATIVE); KETONES,URINE 2+ (NEGATIVE); LEUKOCYTE ESTERASE ,URINE NEGATIVE (NEGATIVE); NITRITE,URINE NEGATIVE (NEGATIVE); PH,URINE 5 (4.5-8.0); PROTEIN,URINE 3+ (NEGATIVE); UROBILINOGEN,URINE 1 MG/DL (0.0-1.0)
--- NOTE | 2020-02-24 14:39 | NUR ---
*-*DISCHARGE PLAN*-* PATIENT HAS BEEN REFERRED TO: [facility] P:[phone] S/W VIKI BAZAN SERVICE PATIENT UPON DISCHARGE.
--- NOTE | 2020-02-24 14:45 | NUR ---
NURSE NOTES: YENI Wilkinson to Dr. Mata at nurse station. Made PA aware that RT adjusted Bipap settings to 20/8 FiO2 100% from 18/6 FiO2 100% due to patient desaturating to 87%. Patient no with SpO2 90 - 95%. YENI Marinelli acknowledged and ordered to change Bipap setting to 20/8 FiO2 100%. Noted.
--- NOTE | 2020-02-24 14:54 | Pulmonology Progress Note ---
Subjective ROS Limited/Unobtainable: Yes Interval Events: tolerating BiPAP Constitutional: Reports: fever, other - on bipap HEENT: Repors: no symptoms Respiratory: Reports: dry cough, shortness of breath Cardiovascular: Denies: no symptoms, chest pain, palpitations, other Gastrointestinal/Abdominal: Denies: nausea, vomiting, diarrhea Psychiatric: Reports: other - NA Skin: Denies: rash Musculoskeletal: Denies: pain Allergies: Coded Allergies: No Known Allergies (Unverified , 02/05/20) Objective Last 24 Hour Vital Signs Date Time Temp Pulse Resp B/P (MAP) Pulse Ox O2 Delivery O2 Flow Rate FiO2 02/24/20 13:29 128/89 02/24/20 12:00 100 02/24/20 12:00 103 02/24/20 12:00 97.7 100 25 128/89 (102) 92 02/24/20 12:00 Bi-pap 15.0 Bi-pap 15.0 02/24/20 09:13 100 155/79 02/24/20 08:00 100 02/24/20 08:00 Bi-pap 15.0 Bi-pap 15.0 02/24/20 08:00 99.5 100 20 155/72 (99) 90 02/24/20 08:00 86 02/24/20 05:06 161/99 02/24/20 04:43 98.2 02/24/20 04:00 100 02/24/20 04:00 79 02/24/20 04:00 Bi-pap 15.0 Bi-pap 15.0 02/24/20 04:00 101.8 99 20 161/99 (119) 93 02/24/20 03:21 102 24 95 100 02/24/20 00:00 99.1 90 26 146/85 (105) 91 02/24/20 00:00 73 02/24/20 00:00 100 02/24/20 00:00 Bi-pap 15.0 Bi-pap 15.0 02/23/20 23:44 146/85 02/23/20 23:16 82 26 92 100 02/23/20 20:00 97.9 81 22 154/53 (86) 93 02/23/20 20:00 100 02/23/20 20:00 57 02/23/20 20:00 Bi-pap 15.0 Bi-pap 15.0 02/23/20 18:44 149/73 02/23/20 18:44 86 149/73 02/23/20 18:26 61 26 97 100 02/23/20 18:12 92 Bi-Pap 100 02/23/20 16:11 86 25 100 100 02/23/20 16:00 Bi-pap 15.0 Bi-pap 15.0 02/23/20 16:00 100 02/23/20 16:00 97 02/23/20 16:00 98.9 79 24 149/73 (98) 92 Intake and Output 02/23/20 02/24/20 19:00 07:00 Intake Total 610.0 ml 400 ml Output Total 600 ml 750 ml Balance 10.0 ml -350 ml Intake Oral 500 ml 400 ml IV Total 110.0 ml Output Urine Total 600 ml 750 ml # Voids 3 # Bowel Movements 2 Objective 02/23 saturating 94% on BiPAP 02/22 tolerating BiPAP, saturating at 90% 02/21 now on BiPAP, saturating at 95% 02/18 still on 15L NRB mask saturating 88-93% 02/17 now on 15L NRB mask saturating at 91% 02/17/2020 now on 2 lpm NC 02/16/2020 no change 02/15/2020 no major change 02/14/2020 saturating well on RAD; NAD 02/13/2020 pt asleep; saturating well on RA 02/12/2020 sitting up in a chair; saturating well on RA 02/11/2020 back on isolation due to COVID-19 positive status again; currently being worked up for positive blood culture 02/09/2020 off isolation; saturating well on RA 02/08/2020 feeling better; COVID-19 PCR neg 02/07/2020 reports feeling better; COVID-19 PCR pending 02/06/2020 pt laying in bed; reports feeling better General Appearance: WD/WN, no acute distress HEENT: normocephalic, atraumatic Respiratory: chest wall non-tender Cardiovascular: normal rate, regular rhythm Abdomen: normal bowel sounds, soft, non tender, other - obese Laboratory Tests 02/24/20 09:00: White Blood Count 10.2#, Red Blood Count 5.16, Hemoglobin 14.7, Hematocrit 42.1, Mean Corpuscular Volume 82, Mean Corpuscular Hemoglobin 28.4, Mean Corpuscular Hemoglobin Concent 34.8, Red Cell Distribution Width 14.2, Platelet Count 250, Mean Platelet Volume 6.5, Neutrophils (%) (Auto) , Lymphocytes (%) (Auto) , Mo nocytes (%) (Auto) , Eosinophils (%) (Auto) , Basophils (%) (Auto) , Differential Total Cells Counted 100, Neutrophils % (Manual) 95H, Lymphocytes % (Manual) 4L, Monocytes % (Manual) 1, Eosinophils % (Manual) 0, Basophils % (Manual) 0, Band Neutrophils 0, Platelet Estimate Adequate, Platelet Morphology Normal, Red Blood Cell Morphology Normal, Sodium Level 140, Potassium Level 4.1, Chloride Level 106, Carbon Dioxide Level 28, Anion Gap 6, Blood Urea Nitrogen 24H, Creatinine 1.1, Estimat Glomerular Filtration Rate > 60, Glucose Level 99, Calcium Level 8.2L, Total Bilirubin 0.6, Aspartate Amino Transf (AST/SGOT) 35, Alanine Aminotransferase (ALT/SGPT) 25, Alkaline Phosphatase 109, Lactate Dehydrogenase 742H, Total Protein 6.6, Albumin 2.2L, Globulin 4.4, Albumin/Globulin Ratio 0.5L 02/24/20 14:15: Urine Color [Pending], Urine Appearance [Pending], Urine pH [Pending], Urine Specific [place] [Pending], Urine Protein [Pending], Urine Glucose (UA) [Pending], Urine Ketones [Pending], Urine Blood [Pending], Urine Nitrite [Pending], Urine Bilirubin [Pending], Urine Urobilinogen [Pending], Urine Leukocyte Esterase [Pending] Current Medications Medications (Trade) Dose Ordered Sig/Dennis Route PRN Reason Start Time Stop Time Status Last Admin Dose Admin Acetaminophen (Tylenol) 650 mg Q4H PRN ORAL Temp >100.5 02/05/20 13:15 03/06/20 13:14 02/24/20 04:13 Acetaminophen (Tylenol) 650 mg Q4H PRN ORAL Pain (1-3) 02/09/20 08:30 03/10/20 08:29 02/23/20 09:00 Amlodipine Besylate (Norvasc) 5 mg BID ORAL 02/10/20 09:00 03/11/20 08:59 02/24/20 09:13 Bisacodyl (Dulcolax) 10 mg HSPRN PRN RECTAL Constipation 02/05/20 13:15 05/05/20 13:14 Chlorhexidine Gluconate (Marlen-Hex 2%) 1 applic DAILY@2000 TOPIC 02/14/20 20:00 05/14/20 19:59 02/23/20 20:09 Dexamethasone Sodium Phosphate (Decadron 10mg/ ml Inj) 6 mg DAILY IV 02/19/20 14:00 02/28/20 09:01 02/24/20 09:13 Dextrose (Dextrose 50%) 25 ml Q30M PRN IV Hypoglycemia 02/05/20 13:15 05/05/20 13:14 Dextrose (Dextrose 50%) 50 ml Q30M PRN IV Hypoglycemia 02/05/20 13:15 05/05/20 13:14 Enoxaparin Sodium (Lovenox) 110 mg EVERY 12 HOURS SUBQ 02/19/20 21:00 05/19/20 20:59 02/24/20 09:14 Hydralazine HCl (Apresoline) 50 mg Q6HR ORAL 02/17/20 19:30 05/17/20 19:29 02/24/20 13:29 Ibuprofen (Motrin) 600 mg TIDPRN PRN ORAL Breakthrough Pain 02/17/20 19:30 03/18/20 19:29 02/21/20 20:56 Magnesium Hydroxide (Mom) 30 ml HSPRN PRN ORAL Constipation 02/05/20 13:15 03/06/20 13:14 Meropenem 1 gm/ Sodium Chloride 100 ml @ 200 mls/hr Q8HR IVPB 02/24/20 14:00 02/29/20 13:59 02/24/20 13:59 Micafungin Sodium 100 mg/Sodium Chloride 100 ml @ 100 mls/hr Q24H IVPB 02/24/20 14:00 03/02/20 13:59 Ondansetron HCl (Zofran) 4 mg Q6H PRN IVP Nausea & Vomiting 02/05/20 13:15 03/06/20 13:14 Pantoprazole (Protonix) 40 mg DAILY ORAL 02/06/20 09:00 03/07/20 08:59 02/24/20 09:13 Polyethylene Glycol (Miralax) 17 gm HSPRN PRN ORAL Constipation 02/05/20 13:15 03/06/20 13:14 Promethazine HCl/ Codeine (Phenergan with Codeine) 5 ml Q4H PRN ORAL For Cough 02/22/20 12:15 03/23/20 12:14 02/23/20 22:19 Vancomycin HCl 250 ml @ 166.667 mls/hr Q8HR IVPB 02/24/20 14:00 02/29/20 13:59 Vancomycin HCl ([facility] pharmacy to dose) 1 ea DAILY PRN MISC Per rx protocol 02/24/20 12:45 03/25/20 12:44 Assessment/Plan Assessment/Plan 1.COVID-19 pneumonia. - last COVID-19 test positive after two negative tests - CTA 02/05/2020 ground-glass and consolidating infiltrates in the dependent portions of both lower lobes and to lesser degree the upper lobes consistent with bilateral pneumonia. No evidence of pulmonary embolus. - CXR 02/17/2020 worsening bilateral infiltrates; on broad spectrum abx per ID - CXR 02/23/2020 unchanged - CT chest 02/18 shows Increased extensive patchy ground-glass opacities and densities throughout the lungs, suggestive of Covid 19 infection. - on BiPAP, saturating at 94%; cont oxygen support; monitor saO2 - BiPAP setting was 18/6, RT notified us of desaturation down to 88%. Now setting at 20/8, now saturating at 94% - Mycoplasma pneumoniae IgG 273; M. pneumoniae IgM titer within normal limits - D-dimer 0.90; on full dose Lovenox - Completed remdesvir - on meropenem, micafungin, vancomycin 2. Initial negative rapid COVID-19 gene assay.- however repeat COVID-19 test positive 3. Smoker. 4. DVT ppx - on lovenox 5. Hypertension - on hydralazine, and norvasc - On cardiac diet 6. Blood culture positive for gram positive cocci staph aureus - on meropenem, micafungin, vancomycin - CT abd/pelvis showed no abscess per ID - TTE/ FERNY held off due to COVID-19 status - PICC line in place - repeat blood Cx showed no growth HIV antibody 1&2 neg We will follow carefully. The care for this patient was discussed with my supervising physician Time spent for this case was approximately 31 minutes Edilson Marinelli Feb 24, 2020 14:54
[2020-02-24 15:02] LABS: COLOR,URINE YELLOW
[2020-02-24 16:00] VITALS: BP 144/92
[2020-02-24] MEDS: Vancomycin 1.25gm/250ml Premix IVPB SCH ×2 (16:02→20:59)
--- NOTE | 2020-02-24 16:50 | Cardiology Progress Note ---
Assessment/Plan Assessment/Plan Acute covid 19 pneumonia chest pain possible M/S infiltrate bilat bacteremia drug free for 28 years his of ivda per rn cough with deep inspiration but now agrees to bipap after resisting for so many days echo normal wall motion last week ct finding reportedly highly suggestive of covid 19 now wosrse on repeat ct 02/19/2020 3rd test positive for covid after initial 2 were neg d/w rn bnp normal 02/17 and 02/19 will repeat unlikely cardiac related ct of the chest done most recently showed extensive infiltrate felt to be due to worsening covid 19 infection on full dose anticoagulation for potential PE as a cause of hypoxemia continue supportive care remain on bipap saturating wellstill d/w rn Subjective Subjective pt now in covid 19 isolation per rn: per PA unable to com off fox bipap eat littel some ensure Objective Last 24 Hour Vital Signs Date Time Temp Pulse Resp B/P (MAP) Pulse Ox O2 Delivery O2 Flow Rate FiO2 02/24/20 16:00 100 02/24/20 16:00 Bi-pap 15.0 Bi-pap 15.0 02/24/20 13:29 128/89 02/24/20 12:00 100 02/24/20 12:00 103 02/24/20 12:00 97.7 100 25 128/89 (102) 92 02/24/20 12:00 Bi-pap 15.0 Bi-pap 15.0 02/24/20 09:13 100 155/79 02/24/20 08:00 100 02/24/20 08:00 Bi-pap 15.0 Bi-pap 15.0 02/24/20 08:00 99.5 100 20 155/72 (99) 90 02/24/20 08:00 86 02/24/20 05:06 161/99 02/24/20 04:43 98.2 02/24/20 04:00 100 02/24/20 04:00 79 02/24/20 04:00 Bi-pap 15.0 Bi-pap 15.0 02/24/20 04:00 101.8 99 20 161/99 (119) 93 02/24/20 03:21 102 24 95 100 02/24/20 00:00 99.1 90 26 146/85 (105) 91 02/24/20 00:00 73 02/24/20 00:00 100 02/24/20 00:00 Bi-pap 15.0 Bi-pap 15.0 02/23/20 23:44 146/85 02/23/20 23:16 82 26 92 100 02/23/20 20:00 97.9 81 22 154/53 (86) 93 02/23/20 20:00 100 02/23/20 20:00 57 02/23/20 20:00 Bi-pap 15.0 Bi-pap 15.0 02/23/20 18:44 149/73 02/23/20 18:44 86 149/73 02/23/20 18:26 61 26 97 100 02/23/20 18:12 92 Bi-Pap 100 Intake and Output 02/23/20 02/24/20 19:00 07:00 Intake Total 610.0 ml 400 ml Output Total 600 ml 750 ml Balance 10.0 ml -350 ml Intake Oral 500 ml 400 ml IV Total 110.0 ml Output Urine Total 600 ml 750 ml # Voids 3 # Bowel Movements 2 Laboratory Tests Test 02/24/20 09:00 02/24/20 14:15 White Blood Count 10.2 K/UL (4.8-10.8) # Red Blood Count 5.16 M/UL (4.70-6.10) Hemoglobin 14.7 G/DL (14.2-18.0) Hematocrit 42.1 % (42.0-52.0) Mean Corpuscular Volume 82 FL (80-99) Mean Corpuscular Hemoglobin 28.4 PG (27.0-31.0) Mean Corpuscular Hemoglobin Concent 34.8 G/DL (32.0-36.0) Red Cell Distribution Width 14.2 % (11.6-14.8) Platelet Count 250 K/UL (150-450) Mean Platelet Volume 6.5 FL (6.5-10.1) Neutrophils (%) (Auto) % (45.0-75.0) Lymphocytes (%) (Auto) % (20.0-45.0) Monocytes (%) (Auto) % (1.0-10.0) Eosinophils (%) (Auto) % (0.0-3.0) Basophils (%) (Auto) % (0.0-2.0) Differential Total Cells Counted 100 Neutrophils % (Manual) 95 % (45-75) H Lymphocytes % (Manual) 4 % (20-45) L Monocytes % (Manual) 1 % (1-10) Eosinophils % (Manual) 0 % (0-3) Basophils % (Manual) 0 % (0-2) Band Neutrophils 0 % (0-8) Platelet Estimate Adequate Platelet Morphology Normal Red Blood Cell Morphology Normal Sodium Level 140 MMOL/L (136-145) Potassium Level 4.1 MMOL/L (3.5-5.1) Chloride Level 106 MMOL/L (98-107) Carbon Dioxide Level 28 MMOL/L (21-32) Anion Gap 6 mmol/L (5-15) Blood Urea Nitrogen 24 mg/dL (7-18) H Creatinine 1.1 MG/DL (0.55-1.30) Estimat Glomerular Filtration Rate > 60 mL/min (>60) Glucose Level 99 MG/DL (74-106) Calcium Level 8.2 MG/DL (8.5-10.1) L Total Bilirubin 0.6 MG/DL (0.2-1.0) Aspartate Amino Transf (AST/SGOT) 35 U/L (15-37) Alanine Aminotransferase (ALT/SGPT) 25 U/L (12-78) Alkaline Phosphatase 109 U/L (46-116) Lactate Dehydrogenase 742 U/L (81-234) H Total Protein 6.6 G/DL (6.4-8.2) Albumin 2.2 G/DL (3.4-5.0) L Globulin 4.4 g/dL Albumin/Globulin Ratio 0.5 (1.0-2.7) L Urine Color Yellow Urine Appearance Clear Urine pH 5 (4.5-8.0) Urine Specific [place] 1.020 (1.005-1.035) Urine Protein 3+ (NEGATIVE) H Urine Glucose (UA) Negative (NEGATIVE) Urine Ketones 2+ (NEGATIVE) H Urine Blood 3+ (NEGATIVE) H Urine Nitrite Negative (NEGATIVE) Urine Bilirubin Negative (NEGATIVE) Urine Urobilinogen 1 MG/DL (0.0-1.0) H Urine Leukocyte Esterase Negative (NEGATIVE) Urine RBC 0-2 /HPF (0 - 0) H Urine WBC 0-2 /HPF (0 - 0) Urine Squamous Epithelial Cells Occasional /LPF Urine Amorphous Sediment Few /LPF (NONE) H Urine Bacteria Occasional /HPF (NONE) Urine Mucus Few /LPF (NONE/OCC) H Objective pt in covid 19 isoaltion with acute infection per pulm pa WD/WN, no acute distress HEENT: normocephalic, atraumatic Respiratory: chest wall non-tender Cardiovascular: normal rate, regular rhythm Abdomen: normal bowel sounds, soft, non tender, other - obese Manan Awan MD Feb 24, 2020 16:50
--- NOTE | 2020-02-24 19:15 | NUR ---
NURSE HAND-OFF REPORT: Important Events on Shift: Patient Status: Stable Diet: Cardiac diet Pending Orders: None Pending Results/Labs:None Pending MD notification:None Latest Vital Signs: Temperature 98.1 , Pulse 77 , B/P 144 /92 , Respiratory Rate 18 , O2 SAT 92 , Room Air, O2 Flow Rate 15.0 . Vital Sign Comment: Stable EKG Rhythm: Sinus Rhythm Rhythm change?: N MD Notified?: N -Dr. Emperatriz INTERIANO Response: Message left await call Latest Hassan Fall Score: 30 Fall Risk: Medium Risk Safety Measures: Call light Within Reach, Bed Alarm Zone 1, Side Rails Side Rails x2, Bed position Low and Locked. Fall Precautions: Patient Fall Education Report given to PRIYANKA Eubanks.
--- NOTE | 2020-02-24 19:30 | NUR ---
NURSE NOTES: Received report from PRIYANKA Mitchell. Pt is awake, A/Ox4, calm with appropriate affect. Does not appear to be in distress or pain. Pt is on BiPAP 20/8, FiO2 100%, O2 saturation 98%. hospital monitor shows SR. L UA PICC 2x is asymptomatic and flushes well. Call light within reach, HOB elevated, side rails x2, bed alarmed, locked and in lowest position. Will continue to monitor. Will continue plan of care.
[2020-02-24 20:00] VITALS: BP 159/86
[2020-02-24] MEDS: Dyna-Hex 2% Top Sol 2oz TOPIC SCH (20:00)
--- NOTE | 2020-02-24 21:56 | NUR ---
NURSE NOTES: O2 saturation at 92%. IV antibiotics hung, offered pt hydration. Will continue to monitor.
[2020-02-25] MEDS: HydrALAZINE 50mg tab ORAL SCH ×4 (00:12→17:29)
--- NOTE | 2020-02-25 00:19 | NUR ---
NURSE NOTES: Pt complained of generalized aches, rated about 2-3/10, requested Tylenol and Phenergen with codeine. No adverse effects noted. Will reassess in 30 minutes, will continue to monitor.
[2020-02-25 00:33] VITALS: BP 155/94
--- NOTE | 2020-02-25 03:14 | NUR ---
NURSE NOTES: Pt is asleep, O2 saturation 92% and potline monitor shows SR. Will continue to monitor.
[2020-02-25 04:00] VITALS: BP 146/85
--- NOTE | 2020-02-25 04:55 | NUR ---
NURSE NOTES: Administered AM abx. No adverse effects noted. Pt has no complaints of pain. O2 saturation is 92%. Will continue to monitor.
[2020-02-25] MEDS: Vancomycin 1.25gm/250ml Premix IVPB SCH (06:29)
[2020-02-25] MEDS: Promethazine/Codeine 5ml UD ORAL PRN (06:45)
--- NOTE | 2020-02-25 07:11 | NUR ---
NURSE HAND-OFF REPORT: Important Events on Shift:[NA] Patient Status: [Stable] Diet: [Cardiac] Pending Orders: [NA] Pending Results/Labs:[NA] Pending MD notification:[NA] Latest Vital Signs: Temperature 98.2 , Pulse 72 , B/P 146 /85 , Respiratory Rate 26 , O2 SAT 92 , Room Air, O2 Flow Rate 15.0 . Vital Sign Comment: [Stable] EKG Rhythm: Sinus Rhythm Rhythm change?: N MD Notified?: N -Dr. Emperatriz INTERIANO Response: Message left await call Latest Hassan Fall Score: 30 Fall Risk: Medium Risk Safety Measures: Call light Within Reach, Bed Alarm Zone 1, Side Rails Side Rails x2, Bed position Low and Locked. Fall Precautions: Patient Fall Education Report given to [Trinh, RN].
--- NOTE | 2020-02-25 07:32 | NUR ---
NURSE NOTES: Received patient in bed asleep. On bipap, no acute distress. PICC line intact. HOB eelvated. Bed locked in low position. Call light within reach. Will continue plan of care.
[2020-02-25 08:00] VITALS: BP 162/89
--- NOTE | 2020-02-25 08:16 | NUR ---
RADIOLOGY NOTE: PORTABLE CHEST X-RAY COMPLETED AT 0747 HRS. FA
[2020-02-25] MEDS: dexAMETHasone 10mg/ml Inj IV SCH (08:46)
[2020-02-25] MEDS: Enoxaparin 120 mg inj SUBQ SCH ×2 (08:47→20:08)
--- NOTE | 2020-02-25 09:15 | Diagnostic Imaging Report ---
EXAM: XR Chest, 1 View CLINICAL HISTORY: INFECT TECHNIQUE: Frontal view of the chest. COMPARISON: Chest x-ray 02/23/20 0850 FINDINGS: Lungs: Interval slightly worsening bilateral airspace disease. Pleural space: Unremarkable. No pneumothorax. Heart: Unremarkable. No cardiomegaly. Mediastinum: Unremarkable. Bones/joints: Unremarkable. IMPRESSION: Interval slightly worsening bilateral airspace disease.
--- NOTE | 2020-02-25 11:08 | NUR ---
NURSE NOTES: IV site on left forearm g20 leaking, but patient refusing to let RN remove it. Explained risks but patient still refuses.
[2020-02-25 12:00] VITALS: BP 154/53
--- NOTE | 2020-02-25 14:33 | Cardiology Progress Note ---
Assessment/Plan Assessment/Plan Acute covid 19 pneumonia chest pain possible M/S infiltrate bilat bacteremia drug free for 28 years his of ivda per rn cough with deep inspiration but now agrees to bipap after resisting for so many days echo normal wall motion last week ct finding reportedly highly suggestive of covid 19 now wosrse on repeat ct 02/19/2020 3rd test positive for covid after initial 2 were neg d/w rn bnp normal 02/17 and 02/19 (from [facility]) pro bnp her is only [address] of the chest done most recently showed extensive infiltrate felt to be due to worsening covid 19 infection on full dose anticoagulation for potential PE as a cause of hypoxemia continue supportive care remain on bipap saturating wellstill d/e dr garcia placeed on lasix to deep dry bp is fien renal fxn is stable still on bipa for the past few days Subjective Subjective pt now in covid 19 isolation per rn: per rn not adi ny distress remain on bipap Objective Last 24 Hour Vital Signs Date Time Temp Pulse Resp B/P (MAP) Pulse Ox O2 Delivery O2 Flow Rate FiO2 02/25/20 12:58 154/53 02/25/20 12:00 98.1 94 30 154/53 (86) 91 02/25/20 11:05 114 31 89 100 02/25/20 08:46 73 162/89 02/25/20 08:00 98.8 73 24 162/89 (113) 94 02/25/20 08:00 90 02/25/20 08:00 100 02/25/20 08:00 Bi-pap 15.0 Bi-pap 15.0 02/25/20 07:15 79 27 92 100 02/25/20 07:15 92 Bi-Pap 100 02/25/20 05:06 146/85 02/25/20 04:00 Bi-pap 15.0 Bi-pap 15.0 02/25/20 04:00 98.2 72 26 146/85 (105) 92 02/25/20 04:00 100 02/25/20 03:58 66 24 89 100 02/25/20 03:48 72 02/25/20 00:33 97.7 66 26 155/94 (114) 92 02/25/20 00:12 159/84 02/25/20 00:00 Bi-pap 15.0 Bi-pap 15.0 02/25/20 00:00 100 02/24/20 23:49 63 02/24/20 23:22 67 20 93 100 02/24/20 20:00 Bi-pap 15.0 Bi-pap 15.0 02/24/20 20:00 97.7 89 25 159/86 (110) 92 02/24/20 19:59 90 Bi-Pap 100 02/24/20 19:55 70 20 90 100 02/24/20 19:33 71 02/24/20 16:59 144/92 02/24/20 16:59 77 144/92 02/24/20 16:00 100 02/24/20 16:00 98.1 77 18 144/92 (109) 92 02/24/20 16:00 Bi-pap 15.0 Bi-pap 15.0 02/24/20 16:00 80 02/24/20 15:24 70 24 92 100 Intake and Output 02/24/20 02/25/20 19:00 07:00 Intake Total 500 ml 780 ml Output Total 700 ml 800 ml Balance -200 ml -20 ml Intake Oral 500 ml 780 ml Output Urine Total 700 ml 800 ml # Voids 2 Laboratory Tests Test 02/24/20 16:30 02/25/20 13:02 Beta-(1,3)-D-Glucan Pending Lactate Dehydrogenase 837 U/L (81-234) H C-Reactive Protein, Quantitative 69.8 mg/dL (0.00-0.90) H Pro-B-Type Natriuretic Peptide 178 pg/mL (0-125) H Vancomycin Level Trough 13.2 ug/mL (5.0-12.0) H Objective pt in covid 19 isoaltion with acute infection per pulm pa WD/WN, no acute distress HEENT: normocephalic, atraumatic Respiratory: chest wall non-tender Cardiovascular: normal rate, regular rhythm Abdomen: normal bowel sounds, soft, non tender, other - obese Manan Awan MD Feb 25, 2020 14:33
[2020-02-25] MEDS: Vancomycin 1.5gm/300ml Premix IVPB SCH ×2 (15:17→23:06)
--- NOTE | 2020-02-25 15:40 | NUR ---
NURSE NOTES: PICC line occluded in both lumens. YENI Marinelli paged 2x, still awaiting callback. Patient has one working IV line on the left forearm g22. Patient verbalizing he wants to go home.
[2020-02-25 16:00] VITALS: BP 147/95
--- NOTE | 2020-02-25 17:41 | NUR ---
NURSE NOTES: Patient agreed to have IV line g20 removed.
--- NOTE | 2020-02-25 18:46 | NUR ---
NURSE HAND-OFF REPORT: Important Events on Shift: Patient Status: alert Diet: cardiac, poor appetite Pending Orders: Pending Results/Labs: Pending MD notification: Latest Vital Signs: Temperature 97.9 , Pulse 102 , B/P 147 /95 , Respiratory Rate 27 , O2 SAT 90 , Room Air, O2 Flow Rate 15.0 . Vital Sign Comment: EKG Rhythm: Sinus Rhythm Rhythm change?: N Notified?: N MD Response: Latest Hassan Fall Score: 30 Fall Risk: Medium Risk Safety Measures: Call light Within Reach, Bed Alarm Zone 1, Side Rails Side Rails x2, Bed position Low and Locked. Fall Precautions: Patient Fall Education . Addendum: 02/25/20 at 1909 by Trinh Kapadia RN HAND-OFF: Report given to Tiana BRANDT
--- NOTE | 2020-02-25 19:34 | NUR ---
NURSE NOTES: Report received from PRIYANKA Tsang. Patient is awake on bed, alert and oriented x 4. On cardiac diet, instructed and amenable, am RN reported that patient has poor appetite these past few days. ekg monitor tech is in place, shows sinus rhythm with no chest pain reported. Patient can ambulate but needs assistance. Safety measures are in place, bed in lowest and locked position, side rails up x 2, call light button and bedside table within reach, instructed to call for any assistance needed. Will continue plan of care.
[2020-02-25 20:00] VITALS: BP 131/84
[2020-02-25] MEDS: Dyna-Hex 2% Top Sol 2oz TOPIC SCH (20:06)
[2020-02-26] VITALS: BP 139/96
[2020-02-26] MEDS: HydrALAZINE 50mg tab ORAL SCH ×5 (00:34→23:45)
[2020-02-26 04:00] VITALS: BP 150/93
--- NOTE | 2020-02-26 04:00 | NUR ---
NURSE NOTES: Patient has a fever, 100.6, cooling measures provided. Tylenol 650 mg P.O was given. Will continue to monitor.
[2020-02-26] MEDS: Promethazine/Codeine 5ml UD ORAL PRN (04:05)
[2020-02-26 06:31] LABS: HEMATOCRIT 43.6 % (42.0-52.0); HEMOGLOBIN 15.5 G/DL (14.2-18.0); MEAN CORPUSCULAR VOLUME 80 FL (80-99); PLATELET COUNT 263 K/UL (150-450); RED BLOOD COUNT 5.43 M/UL (4.70-6.10); RED CELL DISTRIBUTION WIDTH 14.9 % (11.6-14.8); WHITE BLOOD COUNT 10.3 K/UL (4.8-10.8)
[2020-02-26] MEDS: Vancomycin 1.5gm/300ml Premix IVPB SCH ×3 (06:34→22:33)
[2020-02-26 07:00] LABS: ANION GAP 9 mmol/L (5-15); BLOOD UREA NITROGEN 27 mg/dL (7-18); CALCIUM 8.4 MG/DL (8.5-10.1); CARBON DIOXIDE 25 MMOL/L (21-32); CHLORIDE 104 MMOL/L (98-107); POTASSIUM 4.1 MMOL/L (3.5-5.1); SODIUM 138 MMOL/L (136-145)
--- NOTE | 2020-02-26 07:40 | NUR ---
NURSE HAND-OFF REPORT: Important Events on Shift: Patient has been resting well the whole shift but anxious at times. Patient Status: Patient is awake on bed, plan of care endorsed. Diet: Cardiac diet Pending Orders: none Pending Results/Labs:AM lab result Pending MD notification:none Latest Vital Signs: Temperature 100.0 , Pulse 77 , B/P 150 /93 , Respiratory Rate 28 , O2 SAT 90 , Room Air, O2 Flow Rate 15.0 . Vital Sign Comment: stable EKG Rhythm: Sinus Rhythm Rhythm change?: N Notified?: N -Dr. Emperatriz INTERIANO Response: Message left await call Latest Hassan Fall Score: 30 Fall Risk: Medium Risk Safety Measures: Call light Within Reach, Bed Alarm Zone 1, Side Rails Side Rails x2, Bed position Low and Locked. Fall Precautions: Patient Fall Education Report given to PRIYANKA Leahy.
--- NOTE | 2020-02-26 07:40 | NUR ---
NURSE NOTES: Received report from PRIYANKA Jensen
[2020-02-26 08:00] VITALS: BP 144/100
[2020-02-26] MEDS: dexAMETHasone 10mg/ml Inj IV SCH (08:40)
[2020-02-26] MEDS: Enoxaparin 60mg Inj SUBQ SCH ×2 (08:43→20:43)
[2020-02-26 12:00] VITALS: BP 137/86
--- NOTE | 2020-02-26 12:16 | Pulmonology Progress Note ---
Subjective ROS Limited/Unobtainable: Yes Interval Events: tolerating BiPAP Constitutional: Reports: fever, other - on bipap HEENT: Repors: no symptoms Respiratory: Reports: dry cough, shortness of breath Cardiovascular: Denies: no symptoms, chest pain, palpitations, other Gastrointestinal/Abdominal: Denies: nausea, vomiting, diarrhea Psychiatric: Reports: other - NA Skin: Denies: rash Musculoskeletal: Denies: pain Allergies: Coded Allergies: No Known Allergies (Unverified , 02/05/20) Objective Last 24 Hour Vital Signs Date Time Temp Pulse Resp B/P (MAP) Pulse Ox O2 Delivery O2 Flow Rate FiO2 02/26/20 11:36 96 23 89 100 02/26/20 08:41 102 144/100 02/26/20 08:00 Bi-pap 15.0 Bi-pap 15.0 02/26/20 08:00 97.7 102 20 144/100 (115) 92 02/26/20 08:00 100 02/26/20 07:51 91 02/26/20 07:10 89 Bi-Pap 100 02/26/20 07:10 103 29 89 100 02/26/20 05:28 150/93 02/26/20 04:27 100.0 02/26/20 04:00 Bi-pap 15.0 Bi-pap 15.0 02/26/20 04:00 77 02/26/20 04:00 100.6 88 28 150/93 (112) 90 02/26/20 04:00 100 02/26/20 01:02 102 34 90 100 02/26/20 00:34 131/84 02/26/20 00:00 Bi-pap 15.0 Bi-pap 15.0 02/26/20 00:00 98.2 85 23 139/96 (110) 92 02/26/20 00:00 100 02/26/20 00:00 82 02/25/20 22:33 89 34 92 100 02/25/20 20:00 77 02/25/20 20:00 100 02/25/20 20:00 Bi-pap 15.0 Bi-pap 15.0 02/25/20 20:00 98.2 88 28 131/84 (100) 90 02/25/20 19:35 90 Bi-Pap 100 02/25/20 19:35 87 37 90 100 02/25/20 17:29 147/95 02/25/20 17:29 102 147/95 02/25/20 16:00 102 02/25/20 16:00 100 02/25/20 16:00 Bi-pap 15.0 Bi-pap 15.0 02/25/20 16:00 97.9 90 27 147/95 (112) 90 02/25/20 15:45 60 42 93 100 02/25/20 12:58 154/53 Intake and Output 02/25/20 02/26/20 19:00 07:00 Intake Total 1100 ml 1000 ml Output Total 800 ml 1300 ml Balance 300 ml -300 ml Intake Oral 600 ml 1000 ml IV Total 500 ml Output Urine Total 800 ml 1300 ml General Appearance: WD/WN, no acute distress HEENT: normocephalic, atraumatic Respiratory: chest wall non-tender Cardiovascular: normal rate, regular rhythm Abdomen: normal bowel sounds, soft, non tender, other - obese Laboratory Tests 02/25/20 13:02: Lactate Dehydrogenase 837H, C-Reactive Protein, Quantitative 69.8H, Pro-B-Type Natriuretic Peptide 178H, Vancomycin Level Trough 13.2H 02/26/20 06:00: Pro-B-Type Natriuretic Peptide 182H, White Blood Count 10.3, Red Blood Count 5.43, Hemoglobin 15.5, Hematocrit 43.6, Mean Corpuscular Volume 80, Mean Corpuscular Hemoglobin 28.5, Mean Corpuscular Hemoglobin Concent 35.4, Red Cell Distribution Width 14.9H, Platelet Count 263, Mean Platelet Volume 7.0, Neutrophils (%) (Auto) , Lymphocytes (%) (Auto) , Monocytes (%) (Auto) , Eosinophils (%) (Auto) , Basophils (%) (Auto) , Differential Total Cells Counted 100, Neutrophils % (Manual) 94H, Lymphocytes % (Manual) 3L, Monocytes % (Manual) 3, Eosinophils % (Manual) 0, Basophils % (Manual) 0, Band Neutrophils 0, Platelet Estimate Adequate, Platelet Morphology Normal, Anisocytosis 1+, Sodium Level 138, Potassium Level 4.1, Chloride Level 104, Carbon Dioxide Level 25, Anion Gap 9, Blood Urea Nitrogen 27H, Creatinine 1.0, Estimat Glomerular Filtration Rate > 60, Glucose Level 94, Calcium Level 8.4L Current Medications Medications (Trade) Dose Ordered Sig/Dennis Route PRN Reason Start Time Stop Time Status Last Admin Dose Admin Acetaminophen (Tylenol) 650 mg Q4H PRN ORAL Temp >100.5 02/05/20 13:15 03/06/20 13:14 02/26/20 03:57 Acetaminophen (Tylenol) 650 mg Q4H PRN ORAL Pain (1-3) 02/09/20 08:30 03/10/20 08:29 02/23/20 09:00 Amlodipine Besylate (Norvasc) 5 mg BID ORAL 02/10/20 09:00 03/11/20 08:59 02/26/20 08:41 Bisacodyl (Dulcolax) 10 mg HSPRN PRN RECTAL Constipation 02/05/20 13:15 05/05/20 13:14 Chlorhexidine Gluconate (Marlen-Hex 2%) 1 applic DAILY@2000 TOPIC 02/14/20 20:00 05/14/20 19:59 02/25/20 20:06 Dexamethasone Sodium Phosphate (Decadron 10mg/ ml Inj) 6 mg DAILY IV 02/19/20 14:00 02/28/20 09:01 02/26/20 08:40 Dextrose (Dextrose 50%) 25 ml Q30M PRN IV Hypoglycemia 02/05/20 13:15 05/05/20 13:14 Dextrose (Dextrose 50%) 50 ml Q30M PRN IV Hypoglycemia 02/05/20 13:15 05/05/20 13:14 Enoxaparin Sodium (Lovenox) 110 mg EVERY 12 HOURS SUBQ 02/26/20 09:00 05/19/20 20:59 02/26/20 08:43 Furosemide 100 mg/ Dextrose 100 ml @ 7.5 mls/hr [id number] IV 02/25/20 14:00 03/26/20 13:59 02/26/20 03:31 Hydralazine HCl (Apresoline) 50 mg Q6HR ORAL 02/17/20 19:30 05/17/20 19:29 02/26/20 05:28 Ibuprofen (Motrin) 600 mg TIDPRN PRN ORAL Breakthrough Pain 02/17/20 19:30 03/18/20 19:29 02/21/20 20:56 Magnesium Hydroxide (Mom) 30 ml HSPRN PRN ORAL Constipation 02/05/20 13:15 03/06/20 13:14 Meropenem 1 gm/ Sodium Chloride 100 ml @ 200 mls/hr Q8HR IVPB 02/24/20 14:00 02/29/20 13:59 02/26/20 05:29 Micafungin Sodium 100 mg/Sodium Chloride 100 ml @ 100 mls/hr Q24H IVPB 02/24/20 14:00 03/02/20 13:59 02/25/20 14:08 Ondansetron HCl (Zofran) 4 mg Q6H PRN IVP Nausea & Vomiting 02/05/20 13:15 03/06/20 13:14 Pantoprazole (Protonix) 40 mg DAILY ORAL 02/06/20 09:00 03/07/20 08:59 02/26/20 08:40 Polyethylene Glycol (Miralax) 17 gm HSPRN PRN ORAL Constipation 02/05/20 13:15 03/06/20 13:14 Promethazine HCl/ Codeine (Phenergan with Codeine) 5 ml Q4H PRN ORAL For Cough 02/22/20 12:15 03/23/20 12:14 02/26/20 04:05 Vancomycin HCl 300 ml @ 150 mls/hr Q8H IVPB 02/25/20 15:00 03/01/20 14:59 02/26/20 06:34 Vancomycin HCl (Vanco pharmacy to dose) 1 ea DAILY PRN MISC Per rx protocol 02/24/20 12:45 03/25/20 12:44 Assessment/Plan Assessment/Plan 1.COVID-19 pneumonia. - last COVID-19 test positive after two negative tests - CTA 02/05/2020 ground-glass and consolidating infiltrates in the dependent portions of both lower lobes and to lesser degree the upper lobes consistent with bilateral pneumonia. No evidence of pulmonary embolus. - CXR 02/17/2020 worsening bilateral infiltrates; on broad spectrum abx per ID - CT chest 02/18 shows Increased extensive patchy ground-glass opacities and densities throughout the lungs, suggestive of Covid 19 infection. - currently on BiPAP. Saturations 90%. - Mycoplasma pneumoniae IgG 273; M. pneumoniae IgM titer within normal limits - D-dimer 0.90; on full dose Lovenox - restarted decadron and remdesivir per ID due to worsening hypoxia -Started on Lasix drip yesterday. X-ray chest showed interstitial edema. 2. Initial negative rapid COVID-19 gene assay.- however repeat COVID-19 test positive 3. Smoker. 4. DVT ppx - on lovenox 5. Hypertension - on hydralazine, and norvasc - On cardiac diet 6. Blood culture positive for gram positive cocci staph aureus - on Abx - CT abd/pelvis showed no abscess per ID - TTE/ FERNY held off due to COVID-19 status - PICC line in place HIV antibody 1&2 neg We will follow carefully. John Mata MD Feb 26, 2020 12:16
--- NOTE | 2020-02-26 14:19 | NUR ---
CASE MANAGEMENT:REVIEW SI;COVID PNEUMONIA. BACTEREMIA. 100.6 102 34 150/93 90% BiPAP FIO2 100% BUN 27 IS;LOVENOX SQ Q12 VANCOMYCIN IV Q8 MICAFUNGIN IV Q24 MEROPENEM IV Q8 PHENERGAN PO Q4 PRN DECADRON IV QD HYDRALAZINE PO Q6 NORVASC PO BID PROTONIX PO BID SDU STATUS DCP;FROM HOME
--- NOTE | 2020-02-26 15:00 | NUR ---
NURSE NOTES: Patient desaturates to 85% (and lower 80s). called RT to check on patient.
[2020-02-26 16:00] VITALS: BP 136/93
--- NOTE | 2020-02-26 18:18 | Cardiology Progress Note ---
Assessment/Plan Assessment/Plan cardac vick is stable, was started on IV Lasix, will follow Subjective Subjective the patient is on Bipap, alert, Objective Last 24 Hour Vital Signs Date Time Temp Pulse Resp B/P (MAP) Pulse Ox O2 Delivery O2 Flow Rate FiO2 02/26/20 17:42 144/93 02/26/20 17:42 92 144/93 02/26/20 16:00 100 02/26/20 16:00 98.6 91 20 136/93 (107) 89 02/26/20 16:00 Bi-pap 15.0 Bi-pap 15.0 02/26/20 15:27 79 02/26/20 13:00 96 23 89 100 02/26/20 12:19 137/86 02/26/20 12:00 100 02/26/20 12:00 97.9 112 21 137/86 (103) 89 02/26/20 12:00 Bi-pap 15.0 Bi-pap 15.0 02/26/20 11:32 98 02/26/20 08:41 102 144/100 02/26/20 08:00 Bi-pap 15.0 Bi-pap 15.0 02/26/20 08:00 97.7 102 20 144/100 (115) 92 02/26/20 08:00 100 02/26/20 07:51 91 02/26/20 07:10 89 Bi-Pap 100 02/26/20 07:10 103 29 89 100 02/26/20 05:28 150/93 02/26/20 04:27 100.0 02/26/20 04:00 Bi-pap 15.0 Bi-pap 15.0 02/26/20 04:00 77 02/26/20 04:00 100.6 88 28 150/93 (112) 90 02/26/20 04:00 100 02/26/20 01:02 102 34 90 100 02/26/20 00:34 131/84 02/26/20 00:00 Bi-pap 15.0 Bi-pap 15.0 02/26/20 00:00 98.2 85 23 139/96 (110) 92 02/26/20 00:00 100 02/26/20 00:00 82 02/25/20 22:33 89 34 92 100 02/25/20 20:00 77 02/25/20 20:00 100 02/25/20 20:00 Bi-pap 15.0 Bi-pap 15.0 02/25/20 20:00 98.2 88 28 131/84 (100) 90 02/25/20 19:35 90 Bi-Pap 100 02/25/20 19:35 87 37 90 100 General Appearance: other - on bipap EENT: PERRL/EOMI Neck: no JVD Rhythm: NSR Cardiovascular: regular rhythm Respiratory/Chest: crackles/rales Abdomen: decreased bowel sounds Intake and Output 02/25/20 02/26/20 19:00 07:00 Intake Total 1100 ml 1000 ml Output Total 800 ml 1300 ml Balance 300 ml -300 ml Intake Oral 600 ml 1000 ml IV Total 500 ml Output Urine Total 800 ml 1300 ml Laboratory Tests Test 02/26/20 06:00 02/26/20 14:15 White Blood Count 10.3 K/UL (4.8-10.8) Red Blood Count 5.43 M/UL (4.70-6.10) Hemoglobin 15.5 G/DL (14.2-18.0) Hematocrit 43.6 % (42.0-52.0) Mean Corpuscular Volume 80 FL (80-99) Mean Corpuscular Hemoglobin 28.5 PG (27.0-31.0) Mean Corpuscular Hemoglobin Concent 35.4 G/DL (32.0-36.0) Red Cell Distribution Width 14.9 % (11.6-14.8) H Platelet Count 263 K/UL (150-450) Mean Platelet Volume 7.0 FL (6.5-10.1) Neutrophils (%) (Auto) % (45.0-75.0) Lymphocytes (%) (Auto) % (20.0-45.0) Monocytes (%) (Auto) % (1.0-10.0) Eosinophils (%) (Auto) % (0.0-3.0) Basophils (%) (Auto) % (0.0-2.0) Differential Total Cells Counted 100 Neutrophils % (Manual) 94 % (45-75) H Lymphocytes % (Manual) 3 % (20-45) L Monocytes % (Manual) 3 % (1-10) Eosinophils % (Manual) 0 % (0-3) Basophils % (Manual) 0 % (0-2) Band Neutrophils 0 % (0-8) Platelet Estimate Adequate Platelet Morphology Normal Anisocytosis 1+ Sodium Level 138 MMOL/L (136-145) Potassium Level 4.1 MMOL/L (3.5-5.1) Chloride Level 104 MMOL/L (98-107) Carbon Dioxide Level 25 MMOL/L (21-32) Anion Gap 9 mmol/L (5-15) Blood Urea Nitrogen 27 mg/dL (7-18) H Creatinine 1.0 MG/DL (0.55-1.30) Estimat Glomerular Filtration Rate > 60 mL/min (>60) Glucose Level 94 MG/DL (74-106) Calcium Level 8.4 MG/DL (8.5-10.1) L Pro-B-Type Natriuretic Peptide 182 pg/mL (0-125) H Vancomycin Level Trough 15.8 ug/mL (5.0-12.0) H Microbiology Date/Time Source Procedure Growth Status 02/24/20 13:27 Blood Blood Culture - Preliminary NO GROWTH AFTER 24 HOURS Resulted 02/24/20 13:17 Blood Blood Culture - Preliminary NO GROWTH AFTER 24 HOURS Resulted Cha Chopra MD Feb 26, 2020 18:18
--- NOTE | 2020-02-26 19:10 | NUR ---
NURSE NOTES: Received report from PRIYANKA Leahy. pt is in semi- devine's position. pt is alert x 4. Pt is on BIPAP on 100% Fio2. O2 sat- 88-89%. Ordered ABG for pt and informed Dr. Mata right away, awaiting for response. Pt IV site with PICC line on WAYNE, attainable only one line. Pt is not on respiratory distress, inspite of low o2 sat. Waiting for response of Dr. Mata. Pt has LFA g22 intact and patent. Bed in lowest position, call light within reach. Continue to plan of care.
--- NOTE | 2020-02-26 19:10 | NUR ---
NURSE HAND-OFF REPORT: Important Events on Shift: patient desaturates Patient Status: Diet: Pending Orders: Pending Results/Labs: Pending MD notification: Latest Vital Signs: Temperature 98.6 , Pulse 92 , B/P 144 /93 , Respiratory Rate 20 , O2 SAT 89 , Room Air, O2 Flow Rate 15.0 . Vital Sign Comment: EKG Rhythm: Sinus Rhythm Rhythm change?: N MD Notified?: N -Dr. Emperatriz INTERIANO Response: Message left await call Latest Hassan Fall Score: 30 Fall Risk: Medium Risk Safety Measures: Call light Within Reach, Bed Alarm Zone 1, Side Rails Side Rails x2, Bed position Low and Locked. Fall Precautions: Patient Fall Education Report given to PRIYANKA Rodarte.
--- NOTE | 2020-02-26 19:38 | Infectious Diseases Prog Note ---
Assessment/Plan Assessment/Plan ASSESSMENT AND PLAN: 1. staph aureus bacteremia/mssa, ? source, ? endocarditis, sepsis, leukocytosis, ? CAP, PJP less likely with HIV negative and steroids < 1 month covid-19 +, hypoxia, sob, chest x-ray worse, ? PE, ? HCAP/aspiration pna mild Nguyễn - cr - 1.4 - hold vancomycin - cr better recurrent fevers - ? fungal, ? OI - meropenem, micafungin, vancomycin - day # 18 mssa tx post neg blood cultures - on dexamethasone, s/p remdesivir - CT abdomen and pelvis without abscess - FERNY held secondary to + covid-19 test - may do as outpatient, TTE - no vegetations mentioned per cardiology - monitor labs, f/u blood cultures negative, elevated inflammatory markers noted - CT chest noted - 02/19/20 - increased extensive infiltrates - f/u on b-d-glucan, legionella and Il-6 level, cocci serology 2. covid-19 isolation 3. Hypertension history. Blood pressure treatment primary care team. 4. Elevated blood sugars. Blood sugar treatment per primary care team. 5. No known drug allergies. 6. Social history is positive for smoking. 7. Family history is noncontributory. 8. MAR was noted. 9. Case was discussed with RN. 10. Continue treatment per primary consultants. Subjective Constitutional: Reports: fever - lgt , fatigue, other - on bipap HEENT: Reports: congestion Respiratory: Reports: shortness of breath Cardiovascular: Denies: chest pain Gastrointestinal/Abdominal: Denies: nausea, vomiting, diarrhea Genitourinary: Denies: dysuria Neurologic: Denies: headache Psychiatric: Denies: depression Skin: Denies: rash Hematologic: Denies: bleeding Musculoskeletal: Denies: pain Allergies: Coded Allergies: No Known Allergies (Unverified , 02/05/20) Objective Last 24 Hour Vital Signs Date Time Temp Pulse Resp B/P (MAP) Pulse Ox O2 Delivery O2 Flow Rate FiO2 02/26/20 17:42 144/93 02/26/20 17:42 92 144/93 02/26/20 16:00 100 02/26/20 16:00 98.6 91 20 136/93 (107) 89 02/26/20 16:00 Bi-pap 15.0 Bi-pap 15.0 02/26/20 15:27 79 02/26/20 13:00 96 23 89 100 02/26/20 12:19 137/86 02/26/20 12:00 100 02/26/20 12:00 97.9 112 21 137/86 (103) 89 02/26/20 12:00 Bi-pap 15.0 Bi-pap 15.0 02/26/20 11:32 98 02/26/20 08:41 102 144/100 02/26/20 08:00 Bi-pap 15.0 Bi-pap 15.0 02/26/20 08:00 97.7 102 20 144/100 (115) 92 02/26/20 08:00 100 02/26/20 07:51 91 02/26/20 07:10 89 Bi-Pap 100 02/26/20 07:10 103 29 89 100 02/26/20 05:28 150/93 02/26/20 04:27 100.0 02/26/20 04:00 Bi-pap 15.0 Bi-pap 15.0 02/26/20 04:00 77 02/26/20 04:00 100.6 88 28 150/93 (112) 90 02/26/20 04:00 100 02/26/20 01:02 102 34 90 100 02/26/20 00:34 131/84 02/26/20 00:00 Bi-pap 15.0 Bi-pap 15.0 02/26/20 00:00 98.2 85 23 139/96 (110) 92 02/26/20 00:00 100 02/26/20 00:00 82 02/25/20 22:33 89 34 92 100 02/25/20 20:00 77 02/25/20 20:00 100 02/25/20 20:00 Bi-pap 15.0 Bi-pap 15.0 02/25/20 20:00 98.2 88 28 131/84 (100) 90 02/25/20 19:35 90 Bi-Pap 100 02/25/20 19:35 87 37 90 100 Height (Feet): 5 Height (Inches): 10.00 Weight (Pounds): 240 General Appearance: no acute distress HEENT: normocephalic, atraumatic, anicteric, mucous membranes moist Respiratory/Chest: no respiratory distress, no accessory muscle use, crackles/rales, rhonchi - bilaterally Cardiovascular: normal rate, regular rhythm, no gallop/murmur Abdomen: normal bowel sounds, soft, non tender, no organomegaly, non distended Genitourinary: other - no joseph Extremities: no cyanosis Skin: no rash Neurologic/Psychiatric: tin dipper II-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 The infiltrates are typical for Covid 19. No evidence of pulmonary embolus. CT abdomen and pelvis: IMPRESSION: 1. Scattered hepatic hypodense lesions, too small to characterize on this examination without intravenous contrast. 2. Colonic diverticulosis without evidence of acute diverticulitis. 3. Scattered enlarged mesenteric lymph nodes, presumably reactive. teral pneumonia. The infiltrates are typical for Covid 19. No evidence of pulmonary embolus. Chest x-ray - 12/19/19 - Indication: Shortness of breath Technique: One view of the chest Comparison: 02/17/2020 Findings: Interim worsening of bilateral infiltrates, particularly on the right. The heart is borderline enlarged. The pleural spaces are clear. Left arm PICC is again demonstrated Impression: Worsening bilateral infiltrates over one day, likely pneumonia CT chest - 02/19/20 - IMPRESSION: Increased extensive patchy ground-glass opacities and densities throughout the lungs, suggestive of Covid 19 infection. Chest x-ray 02/23/20 - Procedure: XRAY Chest 1v As Indication: Reason For Exam: INFECT Technique: One view of the chest Comparison: 02/20/2020 Findings: Allowing for differences in exposure technique, bilateral mid and lower lung infiltrates are probably unchanged. The heart size is normal. The pleural spaces are clear. Impression: Unchanged, over 4 days, findings as above. Chest x-ray - 02/25/20 - FINDINGS: Lungs: Interval slightly worsening bilateral airspace disease. Pleural space: Unremarkable. No pneumothorax. Heart: Unremarkable. No cardiomegaly. Mediastinum: Unremarkable. Bones/joints: Unremarkable. IMPRESSION: Interval slightly worsening bilateral airspace disease. Microbiology Date/Time Source Procedure Growth Status 02/24/20 13:27 Blood Blood Culture - Preliminary NO GROWTH AFTER 24 HOURS Resulted 02/24/20 13:17 Blood Blood Culture - Preliminary NO GROWTH AFTER 24 HOURS Resulted Laboratory Tests Test 02/26/20 06:00 02/26/20 14:15 White Blood Count 10.3 K/UL (4.8-10.8) Red Blood Count 5.43 M/UL (4.70-6.10) Hemoglobin 15.5 G/DL (14.2-18.0) Hematocrit 43.6 % (42.0-52.0) Mean Corpuscular Volume 80 FL (80-99) Mean Corpuscular Hemoglobin 28.5 PG (27.0-31.0) Mean Corpuscular Hemoglobin Concent 35.4 G/DL (32.0-36.0) Red Cell Distribution Width 14.9 % (11.6-14.8) H Platelet Count 263 K/UL (150-450) Mean Platelet Volume 7.0 FL (6.5-10.1) Neutrophils (%) (Auto) % (45.0-75.0) Lymphocytes (%) (Auto) % (20.0-45.0) Monocytes (%) (Auto) % (1.0-10.0) Eosinophils (%) (Auto) % (0.0-3.0) Basophils (%) (Auto) % (0.0-2.0) Differential Total Cells Counted 100 Neutrophils % (Manual) 94 % (45-75) H Lymphocytes % (Manual) 3 % (20-45) L Monocytes % (Manual) 3 % (1-10) Eosinophils % (Manual) 0 % (0-3) Basophils % (Manual) 0 % (0-2) Band Neutrophils 0 % (0-8) Platelet Estimate Adequate Platelet Morphology Normal Anisocytosis 1+ Sodium Level 138 MMOL/L (136-145) Potassium Level 4.1 MMOL/L (3.5-5.1) Chloride Level 104 MMOL/L (98-107) Carbon Dioxide Level 25 MMOL/L (21-32) Anion Gap 9 mmol/L (5-15) Blood Urea Nitrogen 27 mg/dL (7-18) H Creatinine 1.0 MG/DL (0.55-1.30) Estimat Glomerular Filtration Rate > 60 mL/min (>60) Glucose Level 94 MG/DL (74-106) Calcium Level 8.4 MG/DL (8.5-10.1) L Pro-B-Type Natriuretic Peptide 182 pg/mL (0-125) H Vancomycin Level Trough 15.8 ug/mL (5.0-12.0) H Current Medications Medications (Trade) Dose Ordered Sig/Dennis Route PRN Reason Start Time Stop Time Status Last Admin Dose Admin Acetaminophen (Tylenol) 650 mg Q4H PRN ORAL Temp >100.5 02/05/20 13:15 03/06/20 13:14 02/26/20 03:57 Acetaminophen (Tylenol) 650 mg Q4H PRN ORAL Pain (1-3) 02/09/20 08:30 03/10/20 08:29 02/23/20 09:00 Amlodipine Besylate (Norvasc) 5 mg BID ORAL 02/10/20 09:00 03/11/20 08:59 02/26/20 17:42 Bisacodyl (Dulcolax) 10 mg HSPRN PRN RECTAL Constipation 02/05/20 13:15 05/05/20 13:14 Chlorhexidine Gluconate (Marlen-Hex 2%) 1 applic DAILY@2000 TOPIC 02/14/20 20:00 05/14/20 19:59 02/25/20 20:06 Dexamethasone Sodium Phosphate (Decadron 10mg/ ml Inj) 6 mg DAILY IV 02/19/20 14:00 02/28/20 09:01 02/26/20 08:40 Dextrose (Dextrose 50%) 25 ml Q30M PRN IV Hypoglycemia 02/05/20 13:15 05/05/20 13:14 Dextrose (Dextrose 50%) 50 ml Q30M PRN IV Hypoglycemia 02/05/20 13:15 05/05/20 13:14 Enoxaparin Sodium (Lovenox) 110 mg EVERY 12 HOURS SUBQ 02/26/20 09:00 05/19/20 20:59 02/26/20 08:43 Furosemide 100 mg/ Dextrose 100 ml @ 7.5 mls/hr [id number] IV 02/25/20 14:00 03/26/20 13:59 02/26/20 16:50 Hydralazine HCl (Apresoline) 50 mg Q6HR ORAL 02/17/20 19:30 05/17/20 19:29 02/26/20 17:42 Ibuprofen (Motrin) 600 mg TIDPRN PRN ORAL Breakthrough Pain 02/17/20 19:30 03/18/20 19:29 02/21/20 20:56 Magnesium Hydroxide (Mom) 30 ml HSPRN PRN ORAL Constipation 02/05/20 13:15 03/06/20 13:14 Meropenem 1 gm/ Sodium Chloride 100 ml @ 200 mls/hr Q8HR IVPB 02/24/20 14:00 02/29/20 13:59 02/26/20 14:22 Micafungin Sodium 100 mg/Sodium Chloride 100 ml @ 100 mls/hr Q24H IVPB 02/24/20 14:00 03/02/20 13:59 02/26/20 14:22 Ondansetron HCl (Zofran) 4 mg Q6H PRN IVP Nausea & Vomiting 02/05/20 13:15 03/06/20 13:14 Pantoprazole (Protonix) 40 mg DAILY ORAL 02/06/20 09:00 03/07/20 08:59 02/26/20 08:40 Polyethylene Glycol (Miralax) 17 gm HSPRN PRN ORAL Constipation 02/05/20 13:15 03/06/20 13:14 Promethazine HCl/ Codeine (Phenergan with Codeine) 5 ml Q4H PRN ORAL For Cough 02/22/20 12:15 03/23/20 12:14 02/26/20 04:05 Kisha Salazar MD Feb 26, 2020 19:38
[2020-02-26 20:00] VITALS: BP 151/100
--- NOTE | 2020-02-26 20:36 | NUR ---
NURSE NOTES: Follow up Dr. Mata. Awaiting for response.
[2020-02-26] MEDS: Dyna-Hex 2% Top Sol 2oz TOPIC SCH (20:42)
--- NOTE | 2020-02-26 20:47 | NUR ---
NURSE NOTES: O2 sat- between 91-93%, ABG earlier po2-48.9, Awaiting for response for Dr. Mata.
--- NOTE | 2020-02-26 21:55 | NUR ---
NURSE NOTES: Spoke to Dr. Mata, regarding ABG results at 1900. pO2- 48.9, O2 sat highest at 93-94%, lowest 92%. Changed BIPAP settings at 20/10 Fio2 at max of 100%, per Dr. Mata, NNO at this time.
--- NOTE | 2020-02-26 21:55 | NUR ---
NURSE NOTES: Dr. Mata aware of o2 sat sometimes can go down to 86%, but as of the moment 92%.
--- NOTE | 2020-02-26 23:51 | NUR ---
NURSE NOTES: pt is sleeping comfortably with no signs of distress, o2 sat- 92-94%.
[2020-02-27] VITALS: BP 160/70
--- NOTE | 2020-02-27 01:08 | NUR ---
NURSE NOTES: Spoke to Dr. Awan, Regarding the pt Sinus tachy 130's-140's Is aware, pt has lasix drip and on Hydralazine RTE. Spoke also to Dr. Awan that pt complain of chest pain, EKG done it was sinus tahcy. Pt also has fever and BP 160- Aware. NNO at this time. Continue to monitor pt.
--- NOTE | 2020-02-27 01:44 | NUR ---
NURSE NOTES: 1x BM noted. Brown in color. Changed and sponge bath given. op2 sat- 92%
--- NOTE | 2020-02-27 03:56 | NUR ---
NURSE NOTES: Pt not in distress, o2 sat- 92%. Continue current management.
[2020-02-27 04:00] VITALS: BP 147/70
[2020-02-27] MEDS: HydrALAZINE 50mg tab ORAL SCH ×3 (05:32→18:00)
--- NOTE | 2020-02-27 05:50 | NUR ---
NURSE NOTES: O2 sat is 92-94%. Pt is cooperative and complaint no chest pain or SOB. Watching TV comfortably.
[2020-02-27] MEDS: Vancomycin 1.5gm/300ml Premix IVPB SCH ×3 (06:23→23:00)
--- NOTE | 2020-02-27 06:33 | NUR ---
NURSE NOTES: No signs of respiratory distress, o2 sat- 92%.
--- NOTE | 2020-02-27 07:15 | NUR ---
NURSE HAND-OFF REPORT: Important Events on Shift: pt desaturates- lowest 86%, Dr Mata aware, ABG done- Dr. Mata aware, BIPAP settings changed. Patient Status: Guarding Diet: Cardiac diet- Dr. Awan aware pt on BIPAP, endorsed to AM remind Dr. he is desaturating. Pending Orders: None Pending Results/Labs: None Pending MD notification: None Latest Vital Signs: Temperature 99.7 , Pulse 94 , B/P 135 /80 , Respiratory Rate 25 , O2 SAT 92 , Room Air, O2 Flow Rate 15.0 . Vital Sign Comment: Sninus taxchy- 130-140's Dr awan aware EKG Rhythm: Sinus Rhythm Rhythm change?: N MD Notified?: Y -Dr. Emperatriz INTERIANO Response: Message left await call Latest Hassan Fall Score: 30 Fall Risk: Medium Risk Safety Measures: Call light Within Reach, Bed Alarm Zone 1, Side Rails Side Rails x2, Bed position Low and Locked. Fall Precautions: Patient Fall Education Report given to [PRIYANKA Ureña].
--- NOTE | 2020-02-27 07:20 | NUR ---
NURSE NOTES: Received report from PRIYANKA Rodarte. Pt sitting is in semi devine's position and watching TV. Pt is A/O x4 and verbally responsive. Pt is on BIPAP with setting of 20/10 with FiO @ 100% with saturation of 90%. No SOB or acute distress. No pain noted some discomfort on his chest. Pt has PICC line on WAYNE dual lumen but at this time only one line is usable. Pt also has LFA 22G which is intact and patent. Bed in lowest position and side rails x2. Call light placed within reach. Will continue to plan of care.
[2020-02-27 08:00] VITALS: BP 156/96
[2020-02-27] MEDS: Enoxaparin 60mg Inj SUBQ SCH ×2 (08:57→20:09)
[2020-02-27] MEDS: dexAMETHasone 10mg/ml Inj IV SCH (08:58)
--- NOTE | 2020-02-27 08:59 | NUR ---
NURSE NOTES: PT can no longer tolerate any PO liquids or medications. Notified Dr. Mata.
--- NOTE | 2020-02-27 09:29 | NUR ---
NURSES NOTES: Dr. Mata did rounds and was informed to hold PO medications until off the bipap. Notified him the BP was 156 and he said it was ok. To continue to with medications and give if tolerable.
[2020-02-27 09:48] LABS: HEMATOCRIT 43.1 % (42.0-52.0); HEMOGLOBIN 14.9 G/DL (14.2-18.0); MEAN CORPUSCULAR VOLUME 82 FL (80-99); PLATELET COUNT 221 K/UL (150-450); RED BLOOD COUNT 5.28 M/UL (4.70-6.10); RED CELL DISTRIBUTION WIDTH 14.6 % (11.6-14.8); WHITE BLOOD COUNT 10.7 K/UL (4.8-10.8)
--- NOTE | 2020-02-27 10:18 | Pulmonology Progress Note ---
Subjective ROS Limited/Unobtainable: Yes Interval Events: tolerating BiPAP Constitutional: Reports: fever - lgt , fatigue, other - on bipap HEENT: Repors: no symptoms Respiratory: Reports: dry cough, shortness of breath Cardiovascular: Denies: no symptoms, chest pain, palpitations, other Gastrointestinal/Abdominal: Denies: nausea, vomiting, diarrhea Psychiatric: Denies: depression Skin: Denies: rash Musculoskeletal: Denies: pain Allergies: Coded Allergies: No Known Allergies (Unverified , 02/05/20) Objective Last 24 Hour Vital Signs Date Time Temp Pulse Resp B/P (MAP) Pulse Ox O2 Delivery O2 Flow Rate FiO2 02/27/20 08:58 78 156/96 02/27/20 08:00 100 02/27/20 08:00 Bi-pap 20.0 Bi-pap 02/27/20 08:00 99.1 78 26 156/96 (116) 94 02/27/20 08:00 86 02/27/20 07:02 93 28 90 100 02/27/20 07:02 90 Bi-Pap 100 02/27/20 06:04 99.7 02/27/20 05:32 135/80 02/27/20 04:00 100.5 74 25 147/70 (95) 92 02/27/20 04:00 100 02/27/20 04:00 94 02/27/20 04:00 Bi-pap Bi-pap 02/27/20 01:31 121 29 94 100 02/27/20 01:10 99.0 02/27/20 01:03 137 02/27/20 00:00 Bi-pap Bi-pap 02/27/20 00:00 101.7 74 27 160/70 (100) 94 02/27/20 00:00 100 02/27/20 00:00 106 02/26/20 23:45 155/80 02/26/20 20:00 98.5 72 22 151/100 (117) 94 02/26/20 20:00 Bi-pap 15.0 Bi-pap 02/26/20 20:00 100 02/26/20 20:00 105 28 90 100 02/26/20 20:00 89 02/26/20 20:00 90 Bi-Pap 100 02/26/20 17:42 144/93 02/26/20 17:42 92 144/93 02/26/20 16:00 100 02/26/20 16:00 98.6 91 20 136/93 (107) 89 02/26/20 16:00 Bi-pap 15.0 Bi-pap 15.0 02/26/20 15:27 79 02/26/20 13:00 96 23 89 100 02/26/20 12:19 137/86 02/26/20 12:00 100 02/26/20 12:00 97.9 112 21 137/86 (103) 89 02/26/20 12:00 Bi-pap 15.0 Bi-pap 15.0 02/26/20 11:32 98 Intake and Output 02/26/20 02/27/20 19:00 07:00 Intake Total 757.5 ml 932.5 ml Output Total 550 ml 1000 ml Balance 207.5 ml -67.5 ml Intake Oral 750 ml 100 ml IV Total 7.5 ml 782.5 ml Other 50 ml Output Urine Total 550 ml 1000 ml # Bowel Movements 2 General Appearance: WD/WN, no acute distress HEENT: normocephalic, atraumatic Respiratory: chest wall non-tender Cardiovascular: normal rate, regular rhythm Abdomen: normal bowel sounds, soft, non tender, other - obese Microbiology Date/Time Source Procedure Growth Status 02/24/20 13:27 Blood Blood Culture - Preliminary NO GROWTH AFTER 48 HOURS Resulted 02/24/20 13:17 Blood Blood Culture - Preliminary NO GROWTH AFTER 48 HOURS Resulted Laboratory Tests 02/26/20 14:15: Vancomycin Level Trough 15.8H 02/26/20 20:00: Arterial Blood pH 7.469H, Arterial Blood Partial Pressure CO2 35.7, Arterial Blood Partial Pressure O2 48.9*L, Arterial Blood HCO3 25.3, Arterial Blood Oxygen Saturation 85.6*L, Arterial Blood Base Excess 2.0, Shemar Test Positive 02/27/20 09:25: White Blood Count 10.7, Red Blood Count 5.28, Hemoglobin 14.9, Hematocrit 43.1, Mean Corpuscular Volume 82, Mean Corpuscular Hemoglobin 28.2, Mean Corpuscular Hemoglobin Concent 34.5, Red Cell Distribution Width 14.6, Platelet Count 221, Mean Platelet Volume 7.1, Neutrophils (%) (Auto) , Lymphocytes (%) (Auto) , Monocytes (%) (Auto) , Eosinophils (%) (Auto) , Basophils (%) (Auto) , Neutrophils % (Manual) [Pending], Lymphocytes % (Manual) [Pending], Platelet Estimate [Pending], Platelet Morphology [Pending], Sodium Level [Pending], Potassium Level [Pending], Chloride Level [Pending], Carbon Dioxide Level [Pending], Blood Urea Nitrogen [Pending], Creatinine [Pending], Estimat Glomerular Filtration Rate [Pending], Glucose Level [Pending], Calcium Level [Pending] Current Medications Medications (Trade) Dose Ordered Sig/Dennis Route PRN Reason Start Time Stop Time Status Last Admin Dose Admin Acetaminophen (Tylenol) 650 mg Q4H PRN ORAL Temp >100.5 02/05/20 13:15 03/06/20 13:14 02/27/20 05:34 Acetaminophen (Tylenol) 650 mg Q4H PRN ORAL Pain (1-3) 02/09/20 08:30 03/10/20 08:29 02/23/20 09:00 Amlodipine Besylate (Norvasc) 5 mg BID ORAL 02/10/20 09:00 03/11/20 08:59 02/26/20 17:42 Bisacodyl (Dulcolax) 10 mg HSPRN PRN RECTAL Constipation 02/05/20 13:15 05/05/20 13:14 Chlorhexidine Gluconate (Marlen-Hex 2%) 1 applic DAILY@2000 TOPIC 02/14/20 20:00 05/14/20 19:59 02/26/20 20:42 Dexamethasone Sodium Phosphate (Decadron 10mg/ ml Inj) 6 mg DAILY IV 02/27/20 09:00 05/27/20 08:59 02/27/20 08:58 Dextrose (Dextrose 50%) 25 ml Q30M PRN IV Hypoglycemia 02/05/20 13:15 05/05/20 13:14 Dextrose (Dextrose 50%) 50 ml Q30M PRN IV Hypoglycemia 02/05/20 13:15 05/05/20 13:14 Enoxaparin Sodium (Lovenox) 110 mg EVERY 12 HOURS SUBQ 02/26/20 09:00 05/19/20 20:59 02/27/20 08:57 Furosemide 100 mg/ Dextrose 100 ml @ 7.5 mls/hr [id number] IV 02/25/20 14:00 03/26/20 13:59 02/27/20 05:32 Hydralazine HCl (Apresoline) 50 mg Q6HR ORAL 02/17/20 19:30 05/17/20 19:29 02/27/20 05:32 Ibuprofen (Motrin) 600 mg TIDPRN PRN ORAL Breakthrough Pain 02/17/20 19:30 03/18/20 19:29 02/21/20 20:56 Magnesium Hydroxide (Mom) 30 ml HSPRN PRN ORAL Constipation 02/05/20 13:15 03/06/20 13:14 Meropenem 1 gm/ Sodium Chloride 100 ml @ 200 mls/hr Q8HR IVPB 02/24/20 14:00 02/29/20 13:59 02/27/20 05:32 Micafungin Sodium 100 mg/Sodium Chloride 100 ml @ 100 mls/hr Q24H IVPB 02/24/20 14:00 03/02/20 13:59 02/26/20 14:22 Ondansetron HCl (Zofran) 4 mg Q6H PRN IVP Nausea & Vomiting 02/05/20 13:15 03/06/20 13:14 Pantoprazole (Protonix) 40 mg DAILY ORAL 02/06/20 09:00 03/07/20 08:59 02/26/20 08:40 Polyethylene Glycol (Miralax) 17 gm HSPRN PRN ORAL Constipation 02/05/20 13:15 03/06/20 13:14 Promethazine HCl/ Codeine (Phenergan with Codeine) 5 ml Q4H PRN ORAL For Cough 02/22/20 12:15 03/23/20 12:14 02/26/20 04:05 Vancomycin HCl 300 ml @ 150 mls/hr Q8H IVPB 02/26/20 23:00 03/02/20 22:59 02/27/20 06:23 Vancomycin HCl (Vanco pharmacy to dose) 1 ea DAILY PRN MISC Per rx protocol 02/26/20 19:30 03/27/20 19:29 Assessment/Plan Assessment/Plan 1.COVID-19 pneumonia. - last COVID-19 test positive after two negative tests - CTA 02/05/2020 ground-glass and consolidating infiltrates in the dependent portions of both lower lobes and to lesser degree the upper lobes consistent with bilateral pneumonia. No evidence of pulmonary embolus. - CXR 02/17/2020 worsening bilateral infiltrates; on broad spectrum abx per ID - CT chest 02/18 shows Increased extensive patchy ground-glass opacities and densities throughout the lungs, suggestive of Covid 19 infection. - currently on BiPAP. Saturations 90%. - Mycoplasma pneumoniae IgG 273; M. pneumoniae IgM titer within normal limits - D-dimer 0.90; on full dose Lovenox - restarted decadron and remdesivir per ID due to worsening hypoxia -Started on Lasix drip. However still not significantly net negative -X-ray chest showed interstitial edema. 2. Initial negative rapid COVID-19 gene assay.- however repeat COVID-19 test positive 3. Smoker. 4. DVT ppx - on lovenox 5. Hypertension - on hydralazine, and norvasc - On cardiac diet 6. Blood culture positive for gram positive cocci staph aureus - on Abx - CT abd/pelvis showed no abscess per ID - TTE/ FERNY held off due to COVID-19 status - PICC line in place HIV antibody 1&2 neg We will follow carefully. John Mata MD Feb 27, 2020 10:18
[2020-02-27 10:29] LABS: ANION GAP 9 mmol/L (5-15); BLOOD UREA NITROGEN 27 mg/dL (7-18); CALCIUM 8.2 MG/DL (8.5-10.1); CARBON DIOXIDE 26 MMOL/L (21-32); CHLORIDE 107 MMOL/L (98-107); POTASSIUM 4.1 MMOL/L (3.5-5.1); SODIUM 142 MMOL/L (136-145)
--- NOTE | 2020-02-27 10:54 | NUR ---
NURSE NOTES: Was ableto get the flush red valve on the PICC but cannot get blood flow back. Will continue to flush and see if I can blood flow back.
--- NOTE | 2020-02-27 11:02 | NUR ---
NURSE NOTES: Upon doing rounds pt refused to be looked at and also to change linens. Pt stated he was ok and maybe later on. Cleaned the pt by wiping down the pt face and body along with assisting to a new position.
[2020-02-27 12:00] VITALS: BP 158/86
[2020-02-27 16:00] VITALS: BP 159/87
--- NOTE | 2020-02-27 17:41 | NUR ---
NURSE NOTES: Asked pt to change linens which he agreed but wanted to apply gown by himself. Pt applied gown but was placed inside out when trying to explain what happened he stated its ok. Continued to change all linens and norberto.
--- NOTE | 2020-02-27 19:09 | NUR ---
NURSE HAND-OFF REPORT: Important Events on Shift: ABG improving with new Bipap settings. Patient Status: Guarded Diet: Cardaic but reminded he can no longer tolerate. Pending Orders: Pending Results/Labs: Pending MD notification: Latest Vital Signs: Temperature 99.2 , Pulse 98 , B/P 159 /87 , Respiratory Rate 24 , O2 SAT 92 , Room Air, O2 Flow Rate 15.0 . Vital Sign Comment: EKG Rhythm: Sinus Rhythm Rhythm change?: N MD Notified?: Courtney Awan MD Response: Message left await call Latest Hassan Fall Score: 30 Fall Risk: Medium Risk Safety Measures: Call light Within Reach, Bed Alarm Zone 1, Side Rails Side Rails x2, Bed position Low and Locked. Fall Precautions: Patient Fall Education Report given to
--- NOTE | 2020-02-27 19:17 | NUR ---
NURSE NOTES: Report received from PRIYANKA Ureña. Patient is awake on bed, alert and oriented x 4. marketing operations manager is in place, shows sinus rhythm with no chest pain reported. On cardiac diet but patient can't tolerate any oral food/drinks nor medication per [place]rem at this time. On fall and aspiration precaution. IV site is on left forearm g-22 saline locked that is patent and intact. Patient has double lumen PICC line on left upper arm running lasix @ 7.5 cc/hour. Safety measures are in place, bed in lowest and locked position, side rails up x 2, call light button and bedside table within reach, instructed to call for any assistance needed. Will continue plan of care.
[2020-02-27 20:00] VITALS: BP 149/97
[2020-02-27] MEDS: Dyna-Hex 2% Top Sol 2oz TOPIC SCH (20:07)
--- NOTE | 2020-02-27 21:00 | NUR ---
NURSE NOTES: Patient's brother "Ricky" called and update of patient's condition at this time was given. Will continue to monitor.
--- NOTE | 2020-02-27 21:05 | Cardiology Progress Note ---
Assessment/Plan Assessment/Plan still on Bipap, no changes on IV Lasix but no signifncat urine output Subjective Subjective the patient is on Bipap, alert, Objective Last 24 Hour Vital Signs Date Time Temp Pulse Resp B/P (MAP) Pulse Ox O2 Delivery O2 Flow Rate FiO2 02/27/20 19:10 90 Bi-Pap 100 02/27/20 19:10 110 31 90 100 02/27/20 16:00 Bi-pap Bi-pap 02/27/20 16:00 108 02/27/20 16:00 99.2 98 24 159/87 (111) 92 02/27/20 16:00 100 02/27/20 15:14 92 24 92 100 02/27/20 12:00 73 02/27/20 12:00 98.7 75 24 158/86 (110) 93 02/27/20 12:00 100 02/27/20 12:00 Non-Rebreather 15.0 Bi-pap 02/27/20 11:38 156/96 02/27/20 11:18 90 27 92 100 02/27/20 08:58 78 156/96 02/27/20 08:00 100 02/27/20 08:00 Bi-pap 20.0 Bi-pap 02/27/20 08:00 99.1 78 26 156/96 (116) 94 02/27/20 08:00 86 02/27/20 07:02 93 28 90 100 02/27/20 07:02 90 Bi-Pap 100 02/27/20 06:04 99.7 02/27/20 05:32 135/80 02/27/20 04:00 100.5 74 25 147/70 (95) 92 02/27/20 04:00 100 02/27/20 04:00 94 02/27/20 04:00 Bi-pap Bi-pap 02/27/20 01:31 121 29 94 100 02/27/20 01:10 99.0 02/27/20 01:03 137 02/27/20 00:00 Bi-pap Bi-pap 02/27/20 00:00 101.7 74 27 160/70 (100) 94 02/27/20 00:00 100 02/27/20 00:00 106 02/26/20 23:45 155/80 General Appearance: moderate distress EENT: PERRL/EOMI Neck: no JVD Rhythm: NSR Cardiovascular: regular rhythm Respiratory/Chest: accessory muscle use, crackles/rales Abdomen: soft Extremities: normal inspection Intake and Output 02/26/20 02/27/20 19:00 07:00 Intake Total 757.5 ml 932.5 ml Output Total 550 ml 1000 ml Balance 207.5 ml -67.5 ml Intake Oral 750 ml 100 ml IV Total 7.5 ml 782.5 ml Other 50 ml Output Urine Total 550 ml 1000 ml # Bowel Movements 2 Laboratory Tests Test 02/27/20 09:25 White Blood Count 10.7 K/UL (4.8-10.8) Red Blood Count 5.28 M/UL (4.70-6.10) Hemoglobin 14.9 G/DL (14.2-18.0) Hematocrit 43.1 % (42.0-52.0) Mean Corpuscular Volume 82 FL (80-99) Mean Corpuscular Hemoglobin 28.2 PG (27.0-31.0) Mean Corpuscular Hemoglobin Concent 34.5 G/DL (32.0-36.0) Red Cell Distribution Width 14.6 % (11.6-14.8) Platelet Count 221 K/UL (150-450) Mean Platelet Volume 7.1 FL (6.5-10.1) Neutrophils (%) (Auto) % (45.0-75.0) Lymphocytes (%) (Auto) % (20.0-45.0) Monocytes (%) (Auto) % (1.0-10.0) Eosinophils (%) (Auto) % (0.0-3.0) Basophils (%) (Auto) % (0.0-2.0) Differential Total Cells Counted 100 Neutrophils % (Manual) 89 % (45-75) H Lymphocytes % (Manual) 3 % (20-45) L Monocytes % (Manual) 7 % (1-10) Eosinophils % (Manual) 1 % (0-3) Basophils % (Manual) 0 % (0-2) Band Neutrophils 0 % (0-8) Platelet Estimate Adequate Platelet Morphology Normal Anisocytosis 1+ Sodium Level 142 MMOL/L (136-145) Potassium Level 4.1 MMOL/L (3.5-5.1) Chloride Level 107 MMOL/L (98-107) Carbon Dioxide Level 26 MMOL/L (21-32) Anion Gap 9 mmol/L (5-15) Blood Urea Nitrogen 27 mg/dL (7-18) H Creatinine 1.0 MG/DL (0.55-1.30) Estimat Glomerular Filtration Rate > 60 mL/min (>60) Glucose Level 101 MG/DL (74-106) Calcium Level 8.2 MG/DL (8.5-10.1) Cha Tam MD Feb 27, 2020 21:05
--- NOTE | 2020-02-27 21:25 | NUR ---
NURSE NOTES: Patient had a fever around 1999, temp of 101.7, Cooling measures provided, Tylenol 650 mg given per orem. Will continue to monitor.
[2020-02-28] VITALS: BP 146/95
[2020-02-28] MEDS: HydrALAZINE 50mg tab ORAL SCH ×4 (00:30→17:36)
[2020-02-28 04:00] VITALS: BP 147/91
[2020-02-28] MEDS: Vancomycin 1.5gm/300ml Premix IVPB SCH ×3 (06:18→23:35)
--- NOTE | 2020-02-28 06:58 | NUR ---
NURSE HAND-OFF REPORT: Important Events on Shift: Patient is still coughing everytime I'm giving him his medication even with small amount of water. Patient desaturate as low as 78-80 % if off from Bipap Patient Status: Patient is awake on bed in stable condition. Diet: Cardiac diet, but npo at this time except medication Pending Orders: none Pending Results/Labs:am none Pending MD notification:none Latest Vital Signs: Temperature 98.4 , Pulse 95 , B/P 147 /91 , Respiratory Rate 30 , O2 SAT 97 , Room Air, O2 Flow Rate 100.0 . Vital Sign Comment: stable EKG Rhythm: Sinus Rhythm Rhythm change?: N MD Notified?: Courtney Awan MD Response: Message left await call Latest Hassan Fall Score: 45 Fall Risk: High Risk Safety Measures: Call light Within Reach, Bed Alarm Zone 1, Side Rails Side Rails x2, Bed position Low and Locked. Fall Precautions: Patient Fall Education Report given to PRIYANKA Crockett.
--- NOTE | 2020-02-28 07:55 | NUR ---
NURSE NOTES: Report received from Camila MATHEW. Pt is AOx4 and extremely irritated. Pt states he is leaving AMA, Dr Mata was called and notified of situation, explained to pt that he is on a bipap and his body is demanding high level of oxygen. Pt states he doesnt care and is still planning on leaving. quality assurance monitor is on pt with SR noted. Pt is in cardiac diet but unable to eat due to bipap. IV site is on left forearm g-22 saline locked that is patent and intact. Patient has double lumen PICC line on left upper arm running lasix @ 7.5 cc/hour. bed in lowest and locked position, side rails up x 2, call light button and bedside table within reach, instructed to call for any assistance needed. Will continue plan of care.
[2020-02-28 08:00] VITALS: BP 155/98
--- NOTE | 2020-02-28 08:46 | NUR ---
RD ASSESSMENT & RECOMMENDATIONS SEE CARE ACTIVITY FOR COMPLETE ASSESSMENT DAILY ESTIMATED NEEDS: Needs based on Pulmonary, cardiac 87kg abw 23-28 kcals/kg 6752-3415 total kcals 1-1.5 g protein/kg 87-131 g total protein 25-30 mL/kg 9540-0160 total fluid mLs NUTRITION DIAGNOSIS: Decreased sodium and fat needs r/t HTN and obesity as evidenced by pt w/ cardiac history, elev BP (159/98-> now improved, on BP meds and diuretics), BMI >30, obese per guidelines. CURRENT DIET: Cardiac + Ensure x3 PO DIET RECOMMENDATIONS: CARDIAC DIET / texture as tolerated ENTERAL NUTRITION RECOMMENDATIONS: POOR PO INTAKE D/T BIPAP-> REC NON ORAL FEEDS IF MEDICALLY ABLE to provide PARENTERAL NUTRITION RECOMMENDATIONS: * CONSIDER TPN IF PT UNABLE TO TOLERATE PO DIET OR NGT FEEDS WHILE ON BIPAP ADDITIONAL RECOMMENDATIONS: 1) Maintain calibrated bedscale wts; obtain a standing wt as able 2) Obtain HgA1C for eval 3) Monitor PO intake: decreased intake on 02/14 per EMR Now mostly refusal of meals x 10 days Non oral feeds if medically appropriate w/ Bipap 4) Monitor hydration status- on lasix, without IVF, unable to tolerate PO .
[2020-02-28] MEDS: Enoxaparin 60mg Inj SUBQ SCH (08:52)
[2020-02-28] MEDS: dexAMETHasone 10mg/ml Inj IV SCH (08:52)
--- NOTE | 2020-02-28 10:00 | NUR ---
NURSE NOTES: Dr Mata spoke with pt and pt is still planning to leave with no regard to his critical status.
[2020-02-28 12:00] VITALS: BP 150/100
--- NOTE | 2020-02-28 12:22 | NUR ---
NURSE NOTES: every attempt has been made to convince pt to stay. Pt is still asking to leave AMA. RT was called to assess for possibly lowering him to a NC but was unsuccessful due to poor O2 sat %
--- NOTE | 2020-02-28 12:24 | NUR ---
NURSE NOTES: Will follow up with CM, per dr Mata he made them aware of the situation.
--- NOTE | 2020-02-28 12:52 | NUR ---
VET TECHEQUITY SALES ASSISTANT SI; RESP FAILURE COVID PNA T. 98.4 HR 92 RR 24 B/P 155/98 BIPAP FIO2 100% O2 SAT @ 95% BUN 33 IS: LASIX GTT DECADRON IV MICAFUNGIN IV VANCO IV LOVENOX SUBC STEP DOWN STATUS
--- NOTE | 2020-02-28 13:09 | NUR ---
DOBBY LOOM FIXER NOTES SPOKE WITH PT REGARDING AMA. PT REQUESTING TO GO AMA, ENCOURAGED PT TO STAY IN HOSPITAL. RISK AND BENEFITS EXPLAINED TO THE PT. PT REQUESTING HOME OXYGEN, I EXPLAINED TO THE PT HIS OXYGEN REQUIREMENTS ARE TOO HIGH FOR DC AT THIS TIME. THE MD WILL CONTINUE TO ASSESS HIS O2 NEEDS AND MODE OF DELIVERY DAILY. PT WILL DC WHEN MEDICALLY STABLE. PT VERBALIZED UNDERSTANDING AND AGREED TO STAY IN THE HOSPITAL UNTIL HE GETS BETTER.
--- NOTE | 2020-02-28 13:09 | NUR ---
NURSE NOTES: pt is still wanting to leave AMA, I have explained multiple times the risks of leaving with no oxygen, pt became very aggressive and claims he has set up a friend to pick him up.
--- NOTE | 2020-02-28 13:15 | NUR ---
NURSE NOTES: patient has finally agreed to stay
--- NOTE | 2020-02-28 15:53 | Infectious Diseases Prog Note ---
Assessment/Plan Assessment/Plan ASSESSMENT AND PLAN: 1. staph aureus bacteremia/mssa, ? source, ? endocarditis, sepsis, leukocytosis, ? CAP, PJP less likely with HIV negative and steroids < 1 month covid-19 +, hypoxia, sob, chest x-ray worse, ? PE, ? HCAP/aspiration pna mild Nguyễn - cr - 1.4 - hold vancomycin - cr better recurrent fevers - ? fungal, ? OI - meropenem, micafungin, vancomycin - day # 5 combination - day # 20 mssa tx post neg blood cultures - on dexamethasone, s/p remdesivir, bipap - CT abdomen and pelvis without abscess - FERNY held secondary to + covid-19 test - may do as outpatient, TTE - no vegetations mentioned per cardiology - monitor labs, f/u blood cultures negative, elevated inflammatory markers noted - CT chest noted - 02/19/20 - increased extensive infiltrates - f/u on b-d-glucan, legionella and Il-6 level, cocci serology - pending 2. covid-19 isolation 3. Hypertension history. Blood pressure treatment primary care team. 4. Elevated blood sugars. Blood sugar treatment per primary care team. 5. No known drug allergies. 6. Social history is positive for smoking. 7. Family history is noncontributory. 8. MAR was noted. 9. Case was discussed with RN. 10. Continue treatment per primary consultants. Subjective Constitutional: Reports: fever, fatigue, other - sats stable on bipap but desaturates when off bipap, not eating HEENT: Reports: congestion Respiratory: Reports: shortness of breath Cardiovascular: Denies: chest pain Gastrointestinal/Abdominal: Denies: nausea, vomiting, diarrhea Genitourinary: Reports: other - no joseph Neurologic: Denies: headache Psychiatric: Reports: other - NA Skin: Denies: rash Hematologic: Denies: bleeding Musculoskeletal: Denies: pain Allergies: Coded Allergies: No Known Allergies (Unverified , 02/05/20) Objective Last 24 Hour Vital Signs Date Time Temp Pulse Resp B/P (MAP) Pulse Ox O2 Delivery O2 Flow Rate FiO2 02/28/20 12:00 87 02/28/20 12:00 Bi-pap 100.0 Bi-pap 02/28/20 12:00 98.1 93 22 150/100 (117) 92 02/28/20 12:00 147/91 02/28/20 12:00 100 02/28/20 11:23 99 28 96 100 02/28/20 08:52 95 147/91 02/28/20 08:00 98.4 95 24 155/98 (117) 94 02/28/20 08:00 100 02/28/20 08:00 Bi-pap 100.0 Bi-pap 02/28/20 08:00 92 02/28/20 07:46 95 Bi-Pap 100 02/28/20 07:46 93 24 95 100 02/28/20 06:17 147/91 02/28/20 05:48 95 30 97 100 02/28/20 04:00 Bi-pap 100.0 Bi-pap 02/28/20 04:00 100 02/28/20 04:00 98.4 104 23 147/91 (109) 93 02/28/20 04:00 93 02/28/20 00:30 149/97 02/28/20 00:00 111 02/28/20 00:00 Bi-pap 100.0 Bi-pap 02/28/20 00:00 98.2 107 32 146/95 (112) 92 02/27/20 23:35 105 32 92 100 02/27/20 21:52 100.4 02/27/20 20:00 101.7 111 28 149/97 (114) 93 02/27/20 20:00 Bi-pap 100.0 Bi-pap 02/27/20 20:00 100 02/27/20 19:21 111 02/27/20 19:10 90 Bi-Pap 100 02/27/20 19:10 110 31 90 100 02/27/20 16:00 Bi-pap Bi-pap 02/27/20 16:00 108 02/27/20 16:00 99.2 98 24 159/87 (111) 92 02/27/20 16:00 100 Height (Feet): 5 Height (Inches): 10.00 Weight (Pounds): 240 General Appearance: no acute distress HEENT: normocephalic, atraumatic, anicteric Respiratory/Chest: crackles/rales, rhonchi - bilaterally Cardiovascular: normal rate, regular rhythm, regularly irregular, no JVD Abdomen: normal bowel sounds, soft, non tender, no organomegaly, non distended Genitourinary: other - no joseph Extremities: no cyanosis Skin: no rash Neurologic/Psychiatric: box worker II-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 The infiltrates are typical for Covid 19. No evidence of pulmonary embolus. CT abdomen and pelvis: IMPRESSION: 1. Scattered hepatic hypodense lesions, too small to characterize on this examination without intravenous contrast. 2. Colonic diverticulosis without evidence of acute diverticulitis. 3. Scattered enlarged mesenteric lymph nodes, presumably reactive. teral pneumonia. The infiltrates are typical for Covid 19. No evidence of pulmonary embolus. Chest x-ray - 12/19/19 - Indication: Shortness of breath Technique: One view of the chest Comparison: 02/17/2020 Findings: Interim worsening of bilateral infiltrates, particularly on the right. The heart is borderline enlarged. The pleural spaces are clear. Left arm PICC is again demonstrated Impression: Worsening bilateral infiltrates over one day, likely pneumonia CT chest - 02/19/20 - IMPRESSION: Increased extensive patchy ground-glass opacities and densities throughout the lungs, suggestive of Covid 19 infection. Chest x-ray 02/23/20 - Procedure: XRAY Chest 1v As Indication: Reason For Exam: INFECT Technique: One view of the chest Comparison: 02/20/2020 Findings: Allowing for differences in exposure technique, bilateral mid and lower lung infiltrates are probably unchanged. The heart size is normal. The pleural spaces are clear. Impression: Unchanged, over 4 days, findings as above. Chest x-ray - 02/25/20 - FINDINGS: Lungs: Interval slightly worsening bilateral airspace disease. Pleural space: Unremarkable. No pneumothorax. Heart: Unremarkable. No cardiomegaly. Mediastinum: Unremarkable. Bones/joints: Unremarkable. IMPRESSION: Interval slightly worsening bilateral airspace disease. Microbiology Date/Time Source Procedure Growth Status 02/24/20 13:27 Blood Blood Culture - Preliminary NO GROWTH AFTER 48 HOURS Resulted 02/17/20 19:00 Urine,Clean Catch Urine Culture - Final NO GROWTH AFTER 48 HOURS Complete 02/10/20 06:30 Nasopharynx SARS-CoV-2 RdRp Gene Assay - Final Complete Labs Test 02/26/20 06:00 02/26/20 14:15 02/26/20 20:00 02/27/20 09:25 White Blood Count 10.3 K/UL (4.8-10.8) 10.7 K/UL (4.8-10.8) Red Blood Count 5.43 M/UL (4.70-6.10) 5.28 M/UL (4.70-6.10) Hemoglobin 15.5 G/DL (14.2-18.0) 14.9 G/DL (14.2-18.0) Hematocrit 43.6 % (42.0-52.0) 43.1 % (42.0-52.0) Mean Corpuscular Volume 80 FL (80-99) 82 FL (80-99) Mean Corpuscular Hemoglobin 28.5 PG (27.0-31.0) 28.2 PG (27.0-31.0) Mean Corpuscular Hemoglobin Concent 35.4 G/DL (32.0-36.0) 34.5 G/DL (32.0-36.0) Red Cell Distribution Width 14.9 % (11.6-14.8) 14.6 % (11.6-14.8) Platelet Count 263 K/UL (150-450) 221 K/UL (150-450) Mean Platelet Volume 7.0 FL (6.5-10.1) 7.1 FL (6.5-10.1) Neutrophils (%) (Auto) % (45.0-75.0) % (45.0-75.0) Lymphocytes (%) (Auto) % (20.0-45.0) % (20.0-45.0) Monocytes (%) (Auto) % (1.0-10.0) % (1.0-10.0) Eosinophils (%) (Auto) % (0.0-3.0) % (0.0-3.0) Basophils (%) (Auto) % (0.0-2.0) % (0.0-2.0) Differential Total Cells Counted 100 100 Neutrophils % (Manual) 94 % (45-75) 89 % (45-75) Lymphocytes % (Manual) 3 % (20-45) 3 % (20-45) Monocytes % (Manual) 3 % (1-10) 7 % (1-10) Eosinophils % (Manual) 0 % (0-3) 1 % (0-3) Basophils % (Manual) 0 % (0-2) 0 % (0-2) Band Neutrophils 0 % (0-8) 0 % (0-8) Platelet Estimate Adequate Adequate Platelet Morphology Normal Normal Anisocytosis 1+ 1+ Sodium Level 138 MMOL/L (136-145) 142 MMOL/L (136-145) Potassium Level 4.1 MMOL/L (3.5-5.1) 4.1 MMOL/L (3.5-5.1) Chloride Level 104 MMOL/L (98-107) 107 MMOL/L (98-107) Carbon Dioxide Level 25 MMOL/L (21-32) 26 MMOL/L (21-32) Anion Gap 9 mmol/L (5-15) 9 mmol/L (5-15) Blood Urea Nitrogen 27 mg/dL (7-18) 27 mg/dL (7-18) Creatinine 1.0 MG/DL (0.55-1.30) 1.0 MG/DL (0.55-1.30) Estimat Glomerular Filtration Rate > 60 mL/min (>60) > 60 mL/min (>60) Glucose Level 94 MG/DL (74-106) 101 MG/DL (74-106) Calcium Level 8.4 MG/DL (8.5-10.1) 8.2 MG/DL (8.5-10.1) Pro-B-Type Natriuretic Peptide 182 pg/mL (0-125) Vancomycin Level Trough 15.8 ug/mL (5.0-12.0) Arterial Blood pH 7.469 (7.350-7.450) Arterial Blood Partial Pressure CO2 35.7 mmHg (35.0-45.0) Arterial Blood Partial Pressure O2 48.9 mmHg (75.0-100.0) Arterial Blood HCO3 25.3 mmol/L (22.0-26.0) Arterial Blood Oxygen Saturation 85.6 % (95-100) Arterial Blood Base Excess 2.0 (-2-2) Shemar Test Positive Current Medications Medications (Trade) Dose Ordered Sig/Dennis Route PRN Reason Start Time Stop Time Status Last Admin Dose Admin Acetaminophen (Tylenol) 650 mg Q4H PRN ORAL Temp >100.5 02/05/20 13:15 03/06/20 13:14 02/27/20 21:22 Acetaminophen (Tylenol) 650 mg Q4H PRN ORAL Pain (1-3) 02/09/20 08:30 03/10/20 08:29 02/23/20 09:00 Amlodipine Besylate (Norvasc) 5 mg BID ORAL 02/10/20 09:00 03/11/20 08:59 02/28/20 08:52 Bisacodyl (Dulcolax) 10 mg HSPRN PRN RECTAL Constipation 02/05/20 13:15 05/05/20 13:14 Chlorhexidine Gluconate (Marlen-Hex 2%) 1 applic DAILY@2000 TOPIC 02/14/20 20:00 05/14/20 19:59 02/27/20 20:07 Dexamethasone Sodium Phosphate (Decadron 10mg/ ml Inj) 6 mg DAILY IV 02/27/20 09:00 05/27/20 08:59 02/28/20 08:52 Dextrose (Dextrose 50%) 25 ml Q30M PRN IV Hypoglycemia 02/05/20 13:15 05/05/20 13:14 Dextrose (Dextrose 50%) 50 ml Q30M PRN IV Hypoglycemia 02/05/20 13:15 05/05/20 13:14 Enoxaparin Sodium (Lovenox) 110 mg EVERY 12 HOURS SUBQ 02/28/20 21:00 05/19/20 20:59 Furosemide 100 mg/ Dextrose 100 ml @ 7.5 mls/hr [id number] IV 02/25/20 14:00 03/26/20 13:59 02/28/20 08:56 Hydralazine HCl (Apresoline) 50 mg Q6HR ORAL 02/17/20 19:30 05/17/20 19:29 02/28/20 06:17 Ibuprofen (Motrin) 600 mg TIDPRN PRN ORAL Breakthrough Pain 02/17/20 19:30 03/18/20 19:29 02/21/20 20:56 Magnesium Hydroxide (Mom) 30 ml HSPRN PRN ORAL Constipation 02/05/20 13:15 03/06/20 13:14 Meropenem 1 gm/ Sodium Chloride 100 ml @ 200 mls/hr Q8HR IVPB 02/24/20 14:00 03/01/20 13:59 02/28/20 13:27 Micafungin Sodium 100 mg/Sodium Chloride 100 ml @ 100 mls/hr Q24H IVPB 02/24/20 14:00 03/02/20 13:59 02/28/20 14:43 Ondansetron HCl (Zofran) 4 mg Q6H PRN IVP Nausea & Vomiting 02/05/20 13:15 03/06/20 13:14 Pantoprazole (Protonix) 40 mg DAILY ORAL 02/06/20 09:00 03/07/20 08:59 02/28/20 08:52 Polyethylene Glycol (Miralax) 17 gm HSPRN PRN ORAL Constipation 02/05/20 13:15 03/06/20 13:14 Promethazine HCl/ Codeine (Phenergan with Codeine) 5 ml Q4H PRN ORAL For Cough 02/22/20 12:15 03/23/20 12:14 02/26/20 04:05 Vancomycin HCl 300 ml @ 150 mls/hr Q8H IVPB 02/26/20 23:00 03/02/20 22:59 02/28/20 06:18 Vancomycin HCl (Vanco pharmacy to dose) 1 ea DAILY PRN MISC Per rx protocol 02/26/20 19:30 03/27/20 19:29 Kisha Salazar MD Feb 28, 2020 15:53
[2020-02-28 16:00] VITALS: BP 146/96
--- NOTE | 2020-02-28 16:40 | Pulmonology Progress Note ---
Subjective ROS Limited/Unobtainable: Yes Interval Events: tolerating BiPAP Constitutional: Reports: fever, fatigue, other - sats stable on bipap but desaturates when off bipap, not eating HEENT: Repors: no symptoms Respiratory: Reports: dry cough, shortness of breath Cardiovascular: Denies: no symptoms, chest pain, palpitations, other Gastrointestinal/Abdominal: Denies: nausea, vomiting, diarrhea Psychiatric: Reports: other - NA Skin: Denies: rash Musculoskeletal: Denies: pain Allergies: Coded Allergies: No Known Allergies (Unverified , 02/05/20) Objective Last 24 Hour Vital Signs Date Time Temp Pulse Resp B/P (MAP) Pulse Ox O2 Delivery O2 Flow Rate FiO2 02/28/20 12:00 87 02/28/20 12:00 Bi-pap 100.0 Bi-pap 02/28/20 12:00 98.1 93 22 150/100 (117) 92 02/28/20 12:00 147/91 02/28/20 12:00 100 02/28/20 11:23 99 28 96 100 02/28/20 08:52 95 147/91 02/28/20 08:00 98.4 95 24 155/98 (117) 94 02/28/20 08:00 100 02/28/20 08:00 Bi-pap 100.0 Bi-pap 02/28/20 08:00 92 02/28/20 07:46 95 Bi-Pap 100 02/28/20 07:46 93 24 95 100 02/28/20 06:17 147/91 02/28/20 05:48 95 30 97 100 02/28/20 04:00 Bi-pap 100.0 Bi-pap 02/28/20 04:00 100 02/28/20 04:00 98.4 104 23 147/91 (109) 93 02/28/20 04:00 93 02/28/20 00:30 149/97 02/28/20 00:00 111 02/28/20 00:00 Bi-pap 100.0 Bi-pap 02/28/20 00:00 98.2 107 32 146/95 (112) 92 02/27/20 23:35 105 32 92 100 02/27/20 21:52 100.4 02/27/20 20:00 101.7 111 28 149/97 (114) 93 02/27/20 20:00 Bi-pap 100.0 Bi-pap 02/27/20 20:00 100 02/27/20 19:21 111 02/27/20 19:10 90 Bi-Pap 100 02/27/20 19:10 110 31 90 100 Intake and Output 02/27/20 02/28/20 19:00 07:00 Intake Total 50 ml Output Total 800 ml 820 ml Balance -800 ml -770 ml Intake Oral 50 ml Output Urine Total 800 ml 820 ml # Voids 3 General Appearance: WD/WN, no acute distress HEENT: normocephalic, atraumatic Respiratory: chest wall non-tender Cardiovascular: normal rate, regular rhythm Abdomen: normal bowel sounds, soft, non tender, other - obese Current Medications Medications (Trade) Dose Ordered Sig/Dennis Route PRN Reason Start Time Stop Time Status Last Admin Dose Admin Acetaminophen (Tylenol) 650 mg Q4H PRN ORAL Temp >100.5 02/05/20 13:15 03/06/20 13:14 02/27/20 21:22 Acetaminophen (Tylenol) 650 mg Q4H PRN ORAL Pain (1-3) 02/09/20 08:30 03/10/20 08:29 02/23/20 09:00 Amlodipine Besylate (Norvasc) 5 mg BID ORAL 02/10/20 09:00 03/11/20 08:59 02/28/20 08:52 Bisacodyl (Dulcolax) 10 mg HSPRN PRN RECTAL Constipation 02/05/20 13:15 05/05/20 13:14 Chlorhexidine Gluconate (Marlen-Hex 2%) 1 applic DAILY@1999 TOPIC 02/14/20 20:00 05/14/20 19:59 02/27/20 20:07 Dexamethasone Sodium Phosphate (Decadron 10mg/ ml Inj) 6 mg DAILY IV 02/27/20 09:00 05/27/20 08:59 02/28/20 08:52 Dextrose (Dextrose 50%) 25 ml Q30M PRN IV Hypoglycemia 02/05/20 13:15 05/05/20 13:14 Dextrose (Dextrose 50%) 50 ml Q30M PRN IV Hypoglycemia 02/05/20 13:15 05/05/20 13:14 Enoxaparin Sodium (Lovenox) 110 mg EVERY 12 HOURS SUBQ 02/28/20 21:00 05/19/20 20:59 Furosemide 100 mg/ Dextrose 100 ml @ 7.5 mls/hr [id number] IV 02/25/20 14:00 03/26/20 13:59 02/28/20 08:56 Hydralazine HCl (Apresoline) 50 mg Q6HR ORAL 02/17/20 19:30 05/17/20 19:29 02/28/20 06:17 Ibuprofen (Motrin) 600 mg TIDPRN PRN ORAL Breakthrough Pain 02/17/20 19:30 03/18/20 19:29 02/21/20 20:56 Magnesium Hydroxide (Mom) 30 ml HSPRN PRN ORAL Constipation 02/05/20 13:15 03/06/20 13:14 Meropenem 1 gm/ Sodium Chloride 100 ml @ 200 mls/hr Q8HR IVPB 02/28/20 22:00 03/05/20 21:59 Micafungin Sodium 100 mg/Sodium Chloride 100 ml @ 100 mls/hr Q24H IVPB 02/24/20 14:00 03/02/20 13:59 02/28/20 14:43 Ondansetron HCl (Zofran) 4 mg Q6H PRN IVP Nausea & Vomiting 02/05/20 13:15 03/06/20 13:14 Pantoprazole (Protonix) 40 mg DAILY ORAL 02/06/20 09:00 03/07/20 08:59 02/28/20 08:52 Polyethylene Glycol (Miralax) 17 gm HSPRN PRN ORAL Constipation 02/05/20 13:15 03/06/20 13:14 Promethazine HCl/ Codeine (Phenergan with Codeine) 5 ml Q4H PRN ORAL For Cough 02/22/20 12:15 03/23/20 12:14 02/26/20 04:05 Vancomycin HCl 300 ml @ 150 mls/hr Q8H IVPB 02/26/20 23:00 03/02/20 22:59 02/28/20 16:07 Vancomycin HCl (Vanco pharmacy to dose) 1 ea DAILY PRN MISC Per rx protocol 02/26/20 19:30 03/27/20 19:29 Assessment/Plan Assessment/Plan 1.COVID-19 pneumonia. - last COVID-19 test positive after two negative tests - CTA 02/05/2020 ground-glass and consolidating infiltrates in the dependent portions of both lower lobes and to lesser degree the upper lobes consistent with bilateral pneumonia. No evidence of pulmonary embolus. - CXR 02/17/2020 worsening bilateral infiltrates; on broad spectrum abx per ID - CT chest 02/18 shows Increased extensive patchy ground-glass opacities and densities throughout the lungs, suggestive of Covid 19 infection. - currently on BiPAP. Saturations 90%. - Mycoplasma pneumoniae IgG 273; M. pneumoniae IgM titer within normal limits - D-dimer 0.90; on full dose Lovenox - restarted decadron and remdesivir per ID due to worsening hypoxia -Started on Lasix drip. However still not significantly net negative -X-ray chest showed interstitial edema. -Threatening to leave AMA 2. Initial negative rapid COVID-19 gene assay.- however repeat COVID-19 test positive 3. Smoker. 4. DVT ppx - on lovenox 5. Hypertension - on hydralazine, and norvasc - On cardiac diet 6. Blood culture positive for gram positive cocci staph aureus - on Abx - CT abd/pelvis showed no abscess per ID - TTE/ FERNY held off due to COVID-19 status - PICC line in place HIV antibody 1&2 neg We will follow carefully. John Mata MD Feb 28, 2020 16:40
--- NOTE | 2020-02-28 19:15 | NUR ---
NURSE NOTES: Received report from Tahmina Crockett . Pt a/o x 4. Verbally responsive and able to make needs known. On bipap tolerating current setting, saturating @ 90-92 . Sob noted on exertion. Iv sites on L forearm #20 SL, and PICC line on L upper arm, intact, patent and flushed well. In no apparent cardiac distress noted. Denies any pain at the moment but complaint of being tired. Safety measures in place, bed in lowest positioned, call light within reach. Bed alarm activated. Reminded pt to use the call light button for any assistance. Will continue to monitor and plan of care.
[2020-02-28 20:00] VITALS: BP 149/89
--- NOTE | 2020-02-28 20:35 | NUR ---
NURSE NOTES: Picc line dressing change. Both lumen working well, intact, patent and flushed well.
[2020-02-28] MEDS: Dyna-Hex 2% Top Sol 2oz TOPIC SCH (20:40)
[2020-02-28] MEDS: Enoxaparin 120 mg inj SUBQ SCH (20:46)
--- NOTE | 2020-02-28 21:31 | Cardiology Progress Note ---
Assessment/Plan Assessment/Plan Acute covid 19 pneumonia chest pain possible M/S infiltrate bilat bacteremia drug free for 28 years his of ivda per rn cough with deep inspiration but now agrees to bipap after resisting for so many days echo normal wall motion last week ct finding reportedly highly suggestive of covid 19 now wosrse on repeat ct 02/19/2020 3rd test positive for covid after initial 2 were neg d/w rn bnp normal 02/17 and 02/19 (from [place]) pro bnp here was only [address] of the chest done most recently showed extensive infiltrate felt to be due to worsening covid 19 infection on full dose anticoagulation for potential PE as a cause of hypoxemia continue supportive care remain on bipap saturating wellstill while on placeed s lasix drip make good urine per engineer intern fxn is stable tele sisnu sinus tachy Subjective Subjective pt now in covid 19 isolation per rn: has been wanting to leave ama and has been somewaht agree at staff not compainon f any pain 'desaturatee immediatelyu when bipap i taken off , not eating at all now on bipap Objective Last 24 Hour Vital Signs Date Time Temp Pulse Resp B/P (MAP) Pulse Ox O2 Delivery O2 Flow Rate FiO2 02/28/20 20:00 100 02/28/20 20:00 Bi-pap 100.0 Bi-pap 02/28/20 20:00 97.9 71 23 149/89 (109) 95 02/28/20 19:00 96 Bi-Pap 100 02/28/20 19:00 84 22 96 100 02/28/20 17:37 102 146/96 02/28/20 17:36 146/96 02/28/20 16:00 100 02/28/20 16:00 Bi-pap 100.0 Bi-pap 02/28/20 16:00 102 02/28/20 16:00 98.2 93 26 146/96 (113) 98 02/28/20 15:15 86 21 90 100 02/28/20 12:00 87 02/28/20 12:00 Bi-pap 100.0 Bi-pap 02/28/20 12:00 98.1 93 22 150/100 (117) 92 02/28/20 12:00 147/91 02/28/20 12:00 100 02/28/20 11:23 99 28 96 100 02/28/20 08:52 95 147/91 02/28/20 08:00 98.4 95 24 155/98 (117) 94 02/28/20 08:00 100 02/28/20 08:00 Bi-pap 100.0 Bi-pap 02/28/20 08:00 92 02/28/20 07:46 95 Bi-Pap 100 02/28/20 07:46 93 24 95 100 02/28/20 06:17 147/91 02/28/20 05:48 95 30 97 100 02/28/20 04:00 Bi-pap 100.0 Bi-pap 02/28/20 04:00 100 02/28/20 04:00 98.4 104 23 147/91 (109) 93 02/28/20 04:00 93 02/28/20 00:30 149/97 02/28/20 00:00 111 02/28/20 00:00 Bi-pap 100.0 Bi-pap 02/28/20 00:00 98.2 107 32 146/95 (112) 92 02/27/20 23:35 105 32 92 100 02/27/20 21:52 100.4 Intake and Output 02/27/20 02/28/20 19:00 07:00 Intake Total 50 ml Output Total 800 ml 820 ml Balance -800 ml -770 ml Intake Oral 50 ml Output Urine Total 800 ml 820 ml # Voids 3 Objective pt in covid 19 isoaltion with acute infection per id Respiratory/Chest: crackles/rales, rhonchi - bilaterally Cardiovascular: normal rate, regular rhythm, regularly irregular, no JVD Abdomen: normal bowel sounds, soft, non tender, no organomegaly, non distended Genitourinary: other - no joseph Extremities: no cyanosis Manan Awan MD Feb 28, 2020 21:31
[2020-02-29] VITALS: BP 145/93
[2020-02-29] MEDS: HydrALAZINE 50mg tab ORAL SCH ×5 (00:21→23:00)
--- NOTE | 2020-02-29 00:30 | NUR ---
NURSE NOTES: Pt in bed, comfortably sleeping. In no apparent cardiac and respiratory distress noted. Saturating fairly at 95%. Vital signs checke , wnl. Turned and repositioned pt. Will continue plan of care and monitor pt.
[2020-02-29 04:00] VITALS: BP 138/65
--- NOTE | 2020-02-29 04:06 | NUR ---
NURSE NOTES: Pt in bed, awake. In no acute cardiac and respiratory distress noted. Sponge bath given, gown and linens changed. Oral care done by patient with minimal assistance.
--- NOTE | 2020-02-29 04:29 | NUR ---
NURSE NOTES: EKG done, filed in the chart. NSR with nonspecific T wave abnormality.
[2020-02-29 05:53] LABS: HEMATOCRIT 46.5 % (42.0-52.0); HEMOGLOBIN 15.1 G/DL (14.2-18.0); MEAN CORPUSCULAR VOLUME 88 FL (80-99); PLATELET COUNT 253 K/UL (150-450); RED BLOOD COUNT 5.26 M/UL (4.70-6.10); RED CELL DISTRIBUTION WIDTH 14.4 % (11.6-14.8); WHITE BLOOD COUNT 13.4 K/UL (4.8-10.8)
[2020-02-29 06:12] LABS: ALANINE AMINOTRANSFERASE 24 U/L (12-78); ALBUMIN 1.9 G/DL (3.4-5.0); ALBUMIN/GLOBULIN RATIO 0.4 (1.0-2.7); ALKALINE PHOSPHATASE 163 U/L (46-116); ANION GAP 9 mmol/L (5-15); ASPARTATE AMINO TRANSFERASE 40 U/L (15-37); BILIRUBIN,TOTAL 0.6 MG/DL (0.2-1.0); BLOOD UREA NITROGEN 29 mg/dL (7-18); CALCIUM 8.4 MG/DL (8.5-10.1); CARBON DIOXIDE 28 MMOL/L (21-32); CHLORIDE 109 MMOL/L (98-107); CREATININE 1.1 MG/DL (0.55-1.30); POTASSIUM 3.8 MMOL/L (3.5-5.1); SODIUM 146 MMOL/L (136-145)
[2020-02-29] MEDS: Vancomycin 1.5gm/300ml Premix IVPB SCH ×3 (06:35→22:52)
--- NOTE | 2020-02-29 07:30 | NUR ---
NURSE HAND-OFF REPORT: Important Events on Shift: Stable Patient Status: Fair Diet: Pending Orders: Pending Results/Labs: Pending MD notification: Latest Vital Signs: Temperature 97.7 , Pulse 72 , B/P 138 /65 , Respiratory Rate 22 , O2 SAT 93 , Room Air, O2 Flow Rate 100.0 . Vital Sign Comment: Stable EKG Rhythm: Sinus Rhythm Rhythm change?: N MD Notified?: MD Response: Latest Hassan Fall Score: 45 Fall Risk: High Risk Safety Measures: Call light Within Reach, Bed Alarm Zone 1, Side Rails Side Rails x2, Bed position Low and Locked. Fall Precautions: Patient Fall Education Report given to Tahmina Orozco.
--- NOTE | 2020-02-29 07:35 | NUR ---
NURSE NOTES: Report received from Wander Sanford RN.Pt resting in bed awake,alert oriented in no resp distress,on Bipap 20/10,[id number] signs of pain or discomfort,SR on the monitor,voids per urinal,skin warm and dry with IV PICC line to WAYNE intact ,Lasix drip at 7.5 ml/hr,SR up x2 call crum within reach aty bedside,HOB elevated,bed lock in lowest position,will continue with plans of care.
[2020-02-29 08:00] VITALS: BP 132/86
[2020-02-29] MEDS: dexAMETHasone 10mg/ml Inj IV SCH (08:22)
[2020-02-29] MEDS: Enoxaparin 120 mg inj SUBQ SCH ×2 (08:23→20:05)
[2020-02-29] MEDS ORDERED: NS 275ml ONE (10:16)
[2020-02-29] MEDS ORDERED: Tubing IV Secondary IV ONE (10:16)
[2020-02-29 12:00] VITALS: BP 136/94
--- NOTE | 2020-02-29 12:00 | NUR ---
NURSE NOTES: Needs attended,assited during mealtimes,,pt refusing to eat solid foods just request to drink water or juice.
--- NOTE | 2020-02-29 12:39 | NUR ---
Board Certified OrthodontistQc Scientist SI: Respiratory Failure, COVID PNA T 97.7, HR 72, RR 22, BP 138/65 BIPAP FiO2 100% O2 Sat 93% WBC 13.4 BUN 29 IS: Meropenem IV q 8 h Lovenox sq q 12 h Dexamethason IV QD Vancomyucin IV q 8 h Lasix IV Micafungin IV q 24h Step Down Status
--- NOTE | 2020-02-29 13:52 | Pulmonology Progress Note ---
Subjective ROS Limited/Unobtainable: Yes Interval Events: tolerating BiPAP Constitutional: Reports: fever, fatigue, other - sats stable on bipap but desaturates when off bipap, not eating HEENT: Repors: no symptoms Respiratory: Reports: dry cough, shortness of breath Cardiovascular: Denies: no symptoms, chest pain, palpitations, other Gastrointestinal/Abdominal: Denies: nausea, vomiting, diarrhea Psychiatric: Reports: other - NA Skin: Denies: rash Musculoskeletal: Denies: pain Allergies: Coded Allergies: No Known Allergies (Unverified , 02/05/20) Objective Last 24 Hour Vital Signs Date Time Temp Pulse Resp B/P (MAP) Pulse Ox O2 Delivery O2 Flow Rate FiO2 02/29/20 13:09 136/94 02/29/20 12:00 100 02/29/20 12:00 Bi-pap 100.0 Bi-pap 02/29/20 11:08 101 23 92 100 02/29/20 08:27 72 138/65 02/29/20 08:00 100 02/29/20 08:00 98.0 91 20 132/86 (101) 100 02/29/20 08:00 89 02/29/20 08:00 Bi-pap 100.0 Bi-pap 02/29/20 06:54 72 22 93 100 02/29/20 06:53 93 Bi-Pap 100 02/29/20 06:52 65 24 93 Bi-Pap 100 02/29/20 05:24 138/65 02/29/20 04:00 100 02/29/20 04:00 Bi-pap 100.0 Bi-pap 02/29/20 04:00 97.7 92 26 138/65 (89) 92 02/29/20 03:24 86 02/29/20 03:08 86 25 92 100 02/29/20 00:57 84 28 96 100 02/29/20 00:21 145/93 02/29/20 00:07 100 02/29/20 00:00 Bi-pap 100.0 Bi-pap 02/29/20 00:00 97.5 98 24 145/93 (110) 95 02/28/20 23:03 89 02/28/20 23:00 88 20 91 100 02/28/20 20:00 100 02/28/20 20:00 Bi-pap 100.0 Bi-pap 02/28/20 20:00 97.9 71 23 149/89 (109) 95 02/28/20 19:14 86 02/28/20 19:00 96 Bi-Pap 100 02/28/20 19:00 84 22 96 100 02/28/20 17:37 102 146/96 02/28/20 17:36 146/96 02/28/20 16:00 100 02/28/20 16:00 Bi-pap 100.0 Bi-pap 02/28/20 16:00 102 02/28/20 16:00 98.2 93 26 146/96 (113) 98 02/28/20 15:15 86 21 90 100 Intake and Output 02/28/20 02/29/20 19:00 07:00 Intake Total 700 ml Output Total 790 ml 1050 ml Balance -790 ml -350 ml Intake Oral 300 ml IV Total 400 ml Output Urine Total 790 ml 1050 ml # Voids 4 Objective 02/28 saturating 93% on BiPAP 02/23 saturating 94% on BiPAP 02/22 tolerating BiPAP, saturating at 90% 02/21 now on BiPAP, saturating at 95% 02/18 still on 15L NRB mask saturating 88-93% 02/17 now on 15L NRB mask saturating at 91% 02/17/2020 now on 2 lpm NC 02/16/2020 no change 02/15/2020 no major change 02/14/2020 saturating well on RAD; NAD 02/13/2020 pt asleep; saturating well on RA 02/12/2020 sitting up in a chair; saturating well on RA 02/11/2020 back on isolation due to COVID-19 positive status again; currently being worked up for positive blood culture 02/09/2020 off isolation; saturating well on RA 02/08/2020 feeling better; COVID-19 PCR neg 02/07/2020 reports feeling better; COVID-19 PCR pending 02/06/2020 pt laying in bed; reports feeling better General Appearance: WD/WN, no acute distress HEENT: normocephalic, atraumatic Respiratory: chest wall non-tender Cardiovascular: normal rate, regular rhythm Abdomen: normal bowel sounds, soft, non tender, other - obese Laboratory Tests 02/29/20 03:55: White Blood Count 13.4H, Red Blood Count 5.26, Hemoglobin 15.1, Hematocrit 46.5, Mean Corpuscular Volume 88, Mean Corpuscular Hemoglobin 28.6, Mean Corpuscular Hemoglobin Concent 32.4, Red Cell Distribution Width 14.4, Platelet Count 253, Mean Platelet Volume 7.2, Neutrophils (%) (Auto) , Lymphocytes (%) (Auto) , Monocytes (%) (Auto) , Eosinophils (%) (Auto) , Basophils (%) (Auto) , Differential Total Cells Counted 100, Neutrophils % (Manual) 95H, Lymphocytes % (Manual) 4L, Monocytes % (Manual) 1, Eosinophils % (Manual) 0, Basophils % (Manual) 0, Band Neutrophils 0, Platelet Estimate Adequate, Platelet Morphology Normal, Anisocytosis 1+, Sodium Level 146H, Potassium Level 3.8, Chloride Level 109H, Carbon Dioxide Level 28, Anion Gap 9, Blood Urea Nitrogen 29H, Creatinine 1.1, Estimat Glomerular Filtration Rate > 60, Glucose Level 102, Calcium Level 8.4L, Total Bilirubin 0.6, Aspartate Amino Transf (AST/SGOT) 40H, Alanine Aminotransferase (ALT/SGPT) 24, Alkaline Phosphatase 163H, Troponin I 0.012, Pro-B-Type Natriuretic Peptide 201H, Total Protein 7.2, Albumin 1.9L, Globulin 5.3, Albumin/Globulin Ratio 0.4L Current Medications Medications (Trade) Dose Ordered Sig/Dennis Route PRN Reason Start Time Stop Time Status Last Admin Dose Admin Acetaminophen (Tylenol) 650 mg Q4H PRN ORAL Temp >100.5 02/05/20 13:15 03/06/20 13:14 02/27/20 21:22 Acetaminophen (Tylenol) 650 mg Q4H PRN ORAL Pain (1-3) 02/09/20 08:30 03/10/20 08:29 02/23/20 09:00 Amlodipine Besylate (Norvasc) 5 mg BID ORAL 02/10/20 09:00 03/11/20 08:59 02/29/20 08:27 Bisacodyl (Dulcolax) 10 mg HSPRN PRN RECTAL Constipation 02/05/20 13:15 05/05/20 13:14 Chlorhexidine Gluconate (Marlen-Hex 2%) 1 applic DAILY@1999 TOPIC 02/14/20 20:00 05/14/20 19:59 02/28/20 20:40 Dexamethasone Sodium Phosphate (Decadron 10mg/ ml Inj) 6 mg DAILY IV 02/27/20 09:00 03/08/20 08:59 02/29/20 08:22 Dextrose (Dextrose 50%) 25 ml Q30M PRN IV Hypoglycemia 02/05/20 13:15 05/05/20 13:14 Dextrose (Dextrose 50%) 50 ml Q30M PRN IV Hypoglycemia 02/05/20 13:15 05/05/20 13:14 Enoxaparin Sodium (Lovenox) 110 mg EVERY 12 HOURS SUBQ 02/28/20 21:00 05/19/20 20:59 02/29/20 08:23 Furosemide 100 mg/ Dextrose 100 ml @ 7.5 mls/hr [id number] IV 02/25/20 14:00 03/26/20 13:59 02/28/20 22:30 Hydralazine HCl (Apresoline) 50 mg Q6HR ORAL 02/17/20 19:30 05/17/20 19:29 02/29/20 13:09 Ibuprofen (Motrin) 600 mg TIDPRN PRN ORAL Breakthrough Pain 02/17/20 19:30 03/18/20 19:29 02/21/20 20:56 Magnesium Hydroxide (Mom) 30 ml HSPRN PRN ORAL Constipation 02/05/20 13:15 03/06/20 13:14 Meropenem 1 gm/ Sodium Chloride 100 ml @ 200 mls/hr Q8HR IVPB 02/28/20 22:00 03/05/20 21:59 02/29/20 13:12 Micafungin Sodium 100 mg/Sodium Chloride 100 ml @ 100 mls/hr Q24H IVPB 02/24/20 14:00 03/02/20 13:59 02/28/20 14:43 Ondansetron HCl (Zofran) 4 mg Q6H PRN IVP Nausea & Vomiting 02/05/20 13:15 03/06/20 13:14 Pantoprazole (Protonix) 40 mg DAILY ORAL 02/06/20 09:00 03/07/20 08:59 02/29/20 08:26 Polyethylene Glycol (Miralax) 17 gm HSPRN PRN ORAL Constipation 02/05/20 13:15 03/06/20 13:14 Promethazine HCl/ Codeine (Phenergan with Codeine) 5 ml Q4H PRN ORAL For Cough 02/22/20 12:15 03/23/20 12:14 02/26/20 04:05 Vancomycin HCl 300 ml @ 150 mls/hr Q8H IVPB 02/26/20 23:00 03/02/20 22:59 02/29/20 06:35 Vancomycin HCl (Vanco pharmacy to dose) 1 ea DAILY PRN MISC Per rx protocol 02/26/20 19:30 03/27/20 19:29 Assessment/Plan Assessment/Plan 1.COVID-19 pneumonia. - last COVID-19 test positive after two negative tests - CTA 02/05/2020 ground-glass and consolidating infiltrates in the dependent portions of both lower lobes and to lesser degree the upper lobes consistent with bilateral pneumonia. No evidence of pulmonary embolus. - CXR 02/17/2020 worsening bilateral infiltrates; on broad spectrum abx per ID - CT chest 02/18 shows Increased extensive patchy ground-glass opacities and densities throughout the lungs, suggestive of Covid 19 infection. - currently on BiPAP. Saturations 93%. - Mycoplasma pneumoniae IgG 273; M. pneumoniae IgM titer within normal limits - D-dimer 0.90; on full dose Lovenox - on decadron, s/p remdesivir per ID due to worsening hypoxia -Started on Lasix drip. However still not significantly net negative -X-ray chest showed interstitial edema. -Threatening to leave AMA 2. Initial negative rapid COVID-19 gene assay.- however repeat COVID-19 test positive 3. Smoker. 4. DVT ppx - on lovenox 5. Hypertension - on hydralazine, and norvasc - On cardiac diet 6. Bacteremia with gram positive cocci staph aureus - on Meropenem, vancomycin, and micafungin per ID - CT abd/pelvis showed no abscess per ID - TTE/ FERNY held off due to COVID-19 status - PICC line in place HIV antibody 1&2 neg We will follow carefully. Edilson Marinelli Feb 29, 2020 13:52
[2020-02-29 16:00] VITALS: BP 156/98
--- NOTE | 2020-02-29 17:00 | NUR ---
NURSE NOTES: Pt resting in bed asleep bipap settings tolerated,no resp distress presented.
--- NOTE | 2020-02-29 17:30 | Cardiology Progress Note ---
Assessment/Plan Assessment/Plan Acute covid 19 pneumonia chest pain possible M/S infiltrate bilat bacteremia drug free for 28 years his of ivda per rn cough with deep inspiration but now agrees to bipap after resisting for so many days echo normal wall motion last week ct finding reportedly highly suggestive of covid 19 now wosrse on repeat ct 02/19/2020 3rd test positive for covid after initial 2 were neg d/w rn bnp normal 02/17 and 02/19 (from [place]) pro bnp here was only [address] of the chest done most recently showed extensive infiltrate felt to be due to worsening covid 19 infection on full dose anticoagulation for potential PE as a cause of hypoxemia continue supportive care remain on bipap saturating wellstill while on placeed s lasix drip make good urine per alternative education teacher fxn is stable tele sisnu sinus tachy ekg and repeat trop are normal bnp not sig elelvated in on lasix drip repeat cxr soon Subjective Subjective pt now in covid 19 isolation per rn: per pulm pa Interval Events: tolerating BiPAP Constitutional: Reports: fever, fatigue, other - sats stable on bipap but desaturates when off bipap, not eating HEENT: Repors: no symptoms Respiratory: Reports: dry cough, shortness of breath Cardiovascular: Denies: no symptoms, chest pain, palpitations, other Gastrointestinal/Abdominal: Denies: nausea, vomiting, diarrhe Objective Last 24 Hour Vital Signs Date Time Temp Pulse Resp B/P (MAP) Pulse Ox O2 Delivery O2 Flow Rate FiO2 02/29/20 16:08 100 02/29/20 16:08 Bi-pap 100.0 Bi-pap 02/29/20 16:00 97.5 80 20 156/98 (117) 95 02/29/20 15:02 100 45 92 100 02/29/20 13:09 136/94 02/29/20 12:00 100 02/29/20 12:00 100 02/29/20 12:00 Bi-pap 100.0 Bi-pap 02/29/20 12:00 97.5 104 20 136/94 (108) 96 02/29/20 11:08 101 23 92 100 02/29/20 08:27 72 138/65 02/29/20 08:00 100 02/29/20 08:00 98.0 91 20 132/86 (101) 100 02/29/20 08:00 89 02/29/20 08:00 Bi-pap 100.0 Bi-pap 02/29/20 06:54 72 22 93 100 02/29/20 06:53 93 Bi-Pap 100 02/29/20 06:52 65 24 93 Bi-Pap 100 02/29/20 05:24 138/65 02/29/20 04:00 100 02/29/20 04:00 Bi-pap 100.0 Bi-pap 02/29/20 04:00 97.7 92 26 138/65 (89) 92 02/29/20 03:24 86 02/29/20 03:08 86 25 92 100 02/29/20 00:57 84 28 96 100 02/29/20 00:21 145/93 02/29/20 00:07 100 02/29/20 00:00 Bi-pap 100.0 Bi-pap 02/29/20 00:00 97.5 98 24 145/93 (110) 95 02/28/20 23:03 89 02/28/20 23:00 88 20 91 100 02/28/20 20:00 100 02/28/20 20:00 Bi-pap 100.0 Bi-pap 02/28/20 20:00 97.9 71 23 149/89 (109) 95 02/28/20 19:14 86 02/28/20 19:00 96 Bi-Pap 100 02/28/20 19:00 84 22 96 100 02/28/20 17:37 102 146/96 02/28/20 17:36 146/96 Intake and Output 02/28/20 02/29/20 19:00 07:00 Intake Total 707.5 ml Output Total 790 ml 1050 ml Balance -790 ml -342.5 ml Intake Oral 300 ml IV Total 407.5 ml Output Urine Total 790 ml 1050 ml # Voids 4 Laboratory Tests Test 02/29/20 03:55 White Blood Count 13.4 K/UL (4.8-10.8) H Red Blood Count 5.26 M/UL (4.70-6.10) Hemoglobin 15.1 G/DL (14.2-18.0) Hematocrit 46.5 % (42.0-52.0) Mean Corpuscular Volume 88 FL (80-99) Mean Corpuscular Hemoglobin 28.6 PG (27.0-31.0) Mean Corpuscular Hemoglobin Concent 32.4 G/DL (32.0-36.0) Red Cell Distribution Width 14.4 % (11.6-14.8) Platelet Count 253 K/UL (150-450) Mean Platelet Volume 7.2 FL (6.5-10.1) Neutrophils (%) (Auto) % (45.0-75.0) Lymphocytes (%) (Auto) % (20.0-45.0) Monocytes (%) (Auto) % (1.0-10.0) Eosinophils (%) (Auto) % (0.0-3.0) Basophils (%) (Auto) % (0.0-2.0) Differential Total Cells Counted 100 Neutrophils % (Manual) 95 % (45-75) H Lymphocytes % (Manual) 4 % (20-45) L Monocytes % (Manual) 1 % (1-10) Eosinophils % (Manual) 0 % (0-3) Basophils % (Manual) 0 % (0-2) Band Neutrophils 0 % (0-8) Platelet Estimate Adequate Platelet Morphology Normal Anisocytosis 1+ Sodium Level 146 MMOL/L (136-145) H Potassium Level 3.8 MMOL/L (3.5-5.1) Chloride Level 109 MMOL/L (98-107) H Carbon Dioxide Level 28 MMOL/L (21-32) Anion Gap 9 mmol/L (5-15) Blood Urea Nitrogen 29 mg/dL (7-18) H Creatinine 1.1 MG/DL (0.55-1.30) Estimat Glomerular Filtration Rate > 60 mL/min (>60) Glucose Level 102 MG/DL (74-106) Calcium Level 8.4 MG/DL (8.5-10.1) L Total Bilirubin 0.6 MG/DL (0.2-1.0) Aspartate Amino Transf (AST/SGOT) 40 U/L (15-37) H Alanine Aminotransferase (ALT/SGPT) 24 U/L (12-78) Alkaline Phosphatase 163 U/L (46-116) H Troponin I 0.012 ng/mL (0.000-0.056) Pro-B-Type Natriuretic Peptide 201 pg/mL (0-125) H Total Protein 7.2 G/DL (6.4-8.2) Albumin 1.9 G/DL (3.4-5.0) L Globulin 5.3 g/dL Albumin/Globulin Ratio 0.4 (1.0-2.7) L Objective pt in covid 19 isoaltion with acute infection per pulm pa General Appearance: WD/WN, no acute distress HEENT: normocephalic, atraumatic Respiratory: chest wall non-tender Cardiovascular: normal rate, regular rhythm Abdomen: normal bowel sounds, soft, non tender, other - obes Manan Awan MD Feb 29, 2020 17:30
--- NOTE | 2020-02-29 19:20 | NUR ---
NURSE HAND-OFF REPORT: Important Events on Shift:N/A Patient Status: stable Diet: cardiac diet Pending Orders: N/A Pending Results/Labs:N/A Pending MD notification: Latest Vital Signs: Temperature 97.5 , Pulse 80 , B/P 156 /98 , Respiratory Rate 20 , O2 SAT 95 , Room Air, O2 Flow Rate 100.0 . Vital Sign Comment: stable EKG Rhythm: Sinus Rhythm Rhythm change?: N MD Notified?: Courtney Awan MD Response: Message left await call Latest Hassan Fall Score: 45 Fall Risk: High Risk Safety Measures: Call light Within Reach, Bed Alarm Zone 1, Side Rails Side Rails x2, Bed position Low and Locked. Fall Precautions: Patient Fall Education Report given to Cha Rivera RN..
--- NOTE | 2020-02-29 19:25 | NUR ---
NURSE NOTES: Received report from PRIYANKA Orozco. Pt is awake, A/Ox4, fatigued. No signs of distress noted. threat monitoring analyst shows SR, SpO2 92% on BiPAP 20/10 FiO2 100%. L UA PICC purple running lasix drip 7.5ml/hr. Red picc line not working/clogged. Last dressing change of 02/27 noted. Fall and aspiration risk noted. No skin issues noted. HOB elevated, call light within reach, side rails x2, bed alarmed, locked, and in lowest position. Will continue to monitor. Will continue plan of care.
[2020-02-29 20:00] VITALS: BP 131/78
[2020-02-29] MEDS: Dyna-Hex 2% Top Sol 2oz TOPIC SCH (20:03)
--- NOTE | 2020-02-29 21:11 | NUR ---
NURSE NOTES: Pt is awake, on his phone. Administered PM meds, tolerated well. Pt noted to desaturate to 83% within 20 seconds of taking off BiPAP for PO meds. O2 saturation 92% on BiPAP 20/10 FiO2 100%. Will continue plan of care. Will continue to monitor.
[2020-03-01] VITALS: BP 140/100
--- NOTE | 2020-03-01 00:14 | NUR ---
NURSE NOTES: Pt is awake watching TV. No signs of distress noted. Will continue to monitor. Will continue plan of care.
--- NOTE | 2020-03-01 03:22 | NUR ---
NURSE NOTES: Pt is asleep, no signs of distress noted. Will continue to monitor.
[2020-03-01 04:00] VITALS: BP 143/101
[2020-03-01] MEDS: HydrALAZINE 50mg tab ORAL SCH ×3 (05:03→18:00)
[2020-03-01] MEDS: Vancomycin 1.5gm/300ml Premix IVPB SCH ×2 (06:02→15:00)
--- NOTE | 2020-03-01 06:44 | NUR ---
NURSE NOTES: Pt agitated, verbally abused RN. Pt is otherwise in no apparent distress. Will continue to monitor.
--- NOTE | 2020-03-01 07:19 | NUR ---
NURSE HAND-OFF REPORT: Important Events on Shift:[Non-eventful] Patient Status: [Poor] Diet: [Cardiac] Pending Orders: [NA] Pending Results/Labs:[NA] Pending MD notification:[NA] Latest Vital Signs: Temperature 97.5 , Pulse 92 , B/P 143 /101 , Respiratory Rate 24 , O2 SAT 93 , Room Air, O2 Flow Rate 100.0 . Vital Sign Comment: [Stable] EKG Rhythm: Sinus Rhythm Rhythm change?: N MD Notified?: Courtney Awan MD Response: Message left await call Latest Hassan Fall Score: 45 Fall Risk: High Risk Safety Measures: Call light Within Reach, Bed Alarm Zone 1, Side Rails Side Rails x2, Bed position Low and Locked. Fall Precautions: Patient Fall Education Report given to [PRIYANKA Lyon].
--- NOTE | 2020-03-01 07:30 | NUR ---
NURSE NOTES:Handoff received from PRIYANKA Eubanks. Patient received sleeping in bed, on BIPAP with settings of 20/10 and FI02 of 100% with o2 Sat of 92% no acute signs of distress noted. Patient is on potline monitor and placed on contact, droplet and airborne precautions for COVID-19. Left upper arm PICC is clean dry and intact running Lasix at 7.5ML/HR. Patient is also on fall and aspiration precautions with call light in reach, bed in the low and locked position, with head of bed elevated. Will follow plan of care.
[2020-03-01 08:00] VITALS: BP 141/100
[2020-03-01] MEDS: dexAMETHasone 10mg/ml Inj IV SCH (08:58)
[2020-03-01] MEDS: Enoxaparin 120 mg inj SUBQ SCH ×2 (09:00→21:06)
--- NOTE | 2020-03-01 09:40 | NUR ---
NURSE NOTES:Patient's sister called and wanted an update, explained that patient is still on BIPAP at this time, She wanted to know when he would come off BIPAP, informed her that when he is able to tolerate o2 via Non-rebreather or face mask he may be able to come off off BIPAP but that I cannot give her a date as it depends on patient condition. She stated she wanted me to let Gurmeet know that she is thinking of him and praying for him, will inform patient of his sisters message.
[2020-03-01 11:45] VITALS: BP 149/104
--- NOTE | 2020-03-01 12:12 | NUR ---
Night Time BabysitterBuilding Equipment Inspector SI: Respiratory Failure, COVID PNA T-97.5, HR 98, RR-24, 141/100 BIPAP 20/10, FiO2 100% O2 Sat 92% WBC 13.4, NA+ 146, Pro-B 201, BUN 29 IS: Meropenum IV q 8 h Lovenox SQ q 12 h Dexamthasone IV QD Vancomycin IV q 8 h Lasix IV Micafungin IV q 24 h Step Down Status
--- NOTE | 2020-03-01 13:16 | NUR ---
RD ASSESSMENT & RECOMMENDATIONS SEE CARE ACTIVITY FOR COMPLETE ASSESSMENT DAILY ESTIMATED NEEDS: Needs based on Pulmonary, cardiac 87kg abw 23-28 kcals/kg 2910-2621 total kcals 1-1.5 g protein/kg 87-131 g total protein 25-30 mL/kg 2661-8051 total fluid mLs NUTRITION DIAGNOSIS: * Inadequate oral intake R/T clinical and respiratory status as evidenced by COVID-19 ++, on continuous BIPAP, prolonged meal refusals. * Decreased sodium and fat needs r/t HTN and obesity as evidenced by pt w/ cardiac history, elev BP (159/98-> now improved, on BP meds and diuretics), BMI >30, obese per guidelines. CURRENT DIET: Cardiac + Ensure x3 PO DIET RECOMMENDATIONS: Liberalized REGULAR w/ poor PO at this time (texture per PARK MANAGER) + CONTINUE ENSURE ENLIVE TID W MEALS ENTERAL NUTRITION RECOMMENDATIONS: POOR PO INTAKE D/T BIPAP-> REC NON ORAL FEEDS IF MEDICALLY ABLE PARENTERAL NUTRITION RECOMMENDATIONS: CONSIDER TPN IF PT CONTINUES ON BIPAP AND UNABLE TO TOLERATE OR REFUSE NGT FEEDS AND CONT W/ POOR PO ADDITIONAL RECOMMENDATIONS: 1) Maintain calibrated bedscale wts; obtain a standing wt as able 2) Obtain HgA1C for eval 3) Monitor PO intake: decreased intake on 02/14 per EMR Now mostly refusal of meals x 12 days Non oral feeds if medically appropriate w/ Bipap. 4) Monitor hydration status- on lasix, without IVF, unable to tolerate PO .
--- NOTE | 2020-03-01 14:29 | Pulmonology Progress Note ---
Subjective ROS Limited/Unobtainable: Yes Interval Events: tolerating BiPAP Constitutional: Reports: fever, fatigue, other - sats stable on bipap but desaturates when off bipap, not eating HEENT: Repors: no symptoms Respiratory: Reports: dry cough, shortness of breath Cardiovascular: Denies: no symptoms, chest pain, palpitations, other Gastrointestinal/Abdominal: Denies: nausea, vomiting, diarrhea Psychiatric: Reports: other - NA Skin: Denies: rash Musculoskeletal: Denies: pain Allergies: Coded Allergies: No Known Allergies (Unverified , 02/05/20) Objective Last 24 Hour Vital Signs Date Time Temp Pulse Resp B/P (MAP) Pulse Ox O2 Delivery O2 Flow Rate FiO2 03/01/20 12:00 99 03/01/20 12:00 149/104 03/01/20 11:46 100 03/01/20 11:45 97.7 99 24 149/104 (119) 91 03/01/20 11:45 Bi-pap 100.0 Bi-pap Bi-pap 03/01/20 11:16 90 34 91 100 03/01/20 09:00 98 141/100 03/01/20 08:00 Bi-pap 100.0 Bi-pap Bi-pap 03/01/20 08:00 100 03/01/20 08:00 97.5 98 24 141/100 (114) 92 03/01/20 07:46 88 03/01/20 07:20 90 30 90 100 03/01/20 07:20 91 Bi-Pap 100 03/01/20 05:03 143/101 03/01/20 04:00 100 03/01/20 04:00 97.5 90 24 143/101 (115) 93 03/01/20 04:00 Bi-pap 100.0 Bi-pap 03/01/20 04:00 92 03/01/20 03:13 93 28 90 100 03/01/20 00:40 76 03/01/20 00:00 Bi-pap 100.0 Bi-pap 03/01/20 00:00 96.8 85 26 140/100 (113) 92 03/01/20 00:00 100 02/29/20 23:09 97 27 89 100 02/29/20 23:00 131/78 02/29/20 20:00 Bi-pap 100.0 Bi-pap 02/29/20 20:00 100 02/29/20 20:00 96.8 88 23 131/78 (95) 94 02/29/20 19:32 94 02/29/20 19:05 110 34 91 100 02/29/20 19:05 91 Bi-Pap 100 02/29/20 18:10 80 156/98 02/29/20 18:09 156/98 02/29/20 16:08 100 02/29/20 16:08 Bi-pap 100.0 Bi-pap 02/29/20 16:00 97.5 80 20 156/98 (117) 95 02/29/20 16:00 99 02/29/20 15:02 100 45 92 100 Intake and Output 02/29/20 03/01/20 19:00 07:00 Intake Total 907.5 ml 450.0 ml Output Total 1450 ml 750 ml Balance -542.5 ml -300.0 ml Intake Oral 840 ml 360 ml IV Total 67.5 ml 90.0 ml Output Urine Total 1450 ml 750 ml General Appearance: WD/WN, no acute distress HEENT: normocephalic, atraumatic Respiratory: chest wall non-tender Cardiovascular: normal rate, regular rhythm Abdomen: normal bowel sounds, soft, non tender, other - obese Current Medications Medications (Trade) Dose Ordered Sig/Dennis Route PRN Reason Start Time Stop Time Status Last Admin Dose Admin Acetaminophen (Tylenol) 650 mg Q4H PRN ORAL Temp >100.5 02/05/20 13:15 03/06/20 13:14 02/27/20 21:22 Acetaminophen (Tylenol) 650 mg Q4H PRN ORAL Pain (1-3) 02/09/20 08:30 03/10/20 08:29 02/23/20 09:00 Amlodipine Besylate (Norvasc) 5 mg BID ORAL 02/10/20 09:00 03/11/20 08:59 02/29/20 18:10 Bisacodyl (Dulcolax) 10 mg HSPRN PRN RECTAL Constipation 02/05/20 13:15 05/05/20 13:14 Chlorhexidine Gluconate (Marlen-Hex 2%) 1 applic DAILY@2000 TOPIC 02/14/20 20:00 05/14/20 19:59 02/29/20 20:03 Dexamethasone Sodium Phosphate (Decadron 10mg/ ml Inj) 6 mg DAILY IV 02/27/20 09:00 03/08/20 08:59 03/01/20 08:58 Dextrose (Dextrose 50%) 25 ml Q30M PRN IV Hypoglycemia 02/05/20 13:15 05/05/20 13:14 Dextrose (Dextrose 50%) 50 ml Q30M PRN IV Hypoglycemia 02/05/20 13:15 05/05/20 13:14 Enoxaparin Sodium (Lovenox) 110 mg EVERY 12 HOURS SUBQ 02/28/20 21:00 05/19/20 20:59 03/01/20 09:00 Furosemide 100 mg/ Dextrose 100 ml @ 7.5 mls/hr [id number] IV 02/25/20 14:00 03/26/20 13:59 03/01/20 13:50 Hydralazine HCl (Apresoline) 50 mg Q6HR ORAL 02/17/20 19:30 05/17/20 19:29 03/01/20 12:00 Ibuprofen (Motrin) 600 mg TIDPRN PRN ORAL Breakthrough Pain 02/17/20 19:30 03/18/20 19:29 02/21/20 20:56 Magnesium Hydroxide (Mom) 30 ml HSPRN PRN ORAL Constipation 02/05/20 13:15 03/06/20 13:14 Meropenem 1 gm/ Sodium Chloride 100 ml @ 200 mls/hr Q8HR IVPB 02/28/20 22:00 03/05/20 21:59 03/01/20 13:51 Micafungin Sodium 100 mg/Sodium Chloride 100 ml @ 100 mls/hr Q24H IVPB 02/24/20 14:00 03/02/20 13:59 02/29/20 14:47 Ondansetron HCl (Zofran) 4 mg Q6H PRN IVP Nausea & Vomiting 02/05/20 13:15 03/06/20 13:14 Pantoprazole (Protonix) 40 mg DAILY ORAL 02/06/20 09:00 03/07/20 08:59 02/29/20 08:26 Polyethylene Glycol (Miralax) 17 gm HSPRN PRN ORAL Constipation 02/05/20 13:15 03/06/20 13:14 Promethazine HCl/ Codeine (Phenergan with Codeine) 5 ml Q4H PRN ORAL For Cough 02/22/20 12:15 03/23/20 12:14 02/26/20 04:05 Vancomycin HCl 300 ml @ 150 mls/hr Q8H IVPB 02/26/20 23:00 03/02/20 22:59 03/01/20 06:02 Vancomycin HCl (Vanco pharmacy to dose) 1 ea DAILY PRN MISC Per rx protocol 02/26/20 19:30 03/27/20 19:29 Assessment/Plan Assessment/Plan 1.COVID-19 pneumonia. - last COVID-19 test positive after two negative tests - CTA 02/05/2020 ground-glass and consolidating infiltrates in the dependent portions of both lower lobes and to lesser degree the upper lobes consistent with bilateral pneumonia. No evidence of pulmonary embolus. - CXR 02/17/2020 worsening bilateral infiltrates; on broad spectrum abx per ID - CT chest 02/18 shows Increased extensive patchy ground-glass opacities and densities throughout the lungs, suggestive of Covid 19 infection. - currently on BiPAP. Saturations 90%. - Mycoplasma pneumoniae IgG 273; M. pneumoniae IgM titer within normal limits - D-dimer 0.90; on full dose Lovenox - restarted decadron and remdesivir per ID due to worsening hypoxia - Continuing on Lasix gtt 2. Initial negative rapid COVID-19 gene assay.- however repeat COVID-19 test positive 3. Smoker. 4. DVT ppx - on lovenox 5. Hypertension - on hydralazine, and norvasc - On cardiac diet 6. Blood culture positive for gram positive cocci staph aureus - on Abx - CT abd/pelvis showed no abscess per ID - TTE/ FERNY held off due to COVID-19 status - PICC line in place HIV antibody 1&2 neg We will follow carefully. John Mata MD Mar 01, 2020 14:29
[2020-03-01 16:00] VITALS: BP 142/86
--- NOTE | 2020-03-01 18:43 | Infectious Diseases Prog Note ---
Assessment/Plan Assessment/Plan ASSESSMENT AND PLAN: 1. staph aureus bacteremia/mssa, ? source, ? endocarditis, sepsis, leukocytosis, ? CAP, PJP less likely with HIV negative and steroids < 1 month covid-19 +, hypoxia, sob, chest x-ray worse, ? PE, ? HCAP/aspiration pna mild Nguyễn - cr - 1.4 - hold vancomycin - cr better recurrent fevers - ? fungal, ? OI - meropenem, micafungin, vancomycin - day # 7/10 combination - day # 22 mssa tx post neg blood cultures - on dexamethasone, s/p remdesivir, bipap - CT abdomen and pelvis without abscess - FERNY held secondary to + covid-19 test - may do as outpatient, TTE - no vegetations mentioned per cardiology - monitor labs, f/u blood cultures negative, elevated inflammatory markers noted - CT chest noted - 02/19/20 - increased extensive infiltrates - f/u on b-d-glucan, legionella and Il-6 level, cocci serology - pending 2. covid-19 isolation 3. Hypertension history. Blood pressure treatment primary care team. 4. Elevated blood sugars. Blood sugar treatment per primary care team. 5. No known drug allergies. 6. Social history is positive for smoking. 7. Family history is noncontributory. 8. MAR was noted. 9. Case was discussed with RN. 10. Continue treatment per primary consultants. Subjective Constitutional: Reports: other - on bipap, fevers less, eating more ; Denies: fever HEENT: Reports: congestion Respiratory: Reports: shortness of breath Cardiovascular: Denies: chest pain Gastrointestinal/Abdominal: Denies: nausea, vomiting, diarrhea Genitourinary: Reports: other - no joseph Neurologic: Denies: headache Psychiatric: Reports: other - NA Skin: Denies: rash Hematologic: Denies: bleeding Musculoskeletal: Denies: pain Allergies: Coded Allergies: No Known Allergies (Unverified , 02/05/20) Objective Last 24 Hour Vital Signs Date Time Temp Pulse Resp B/P (MAP) Pulse Ox O2 Delivery O2 Flow Rate FiO2 03/01/20 16:00 Bi-pap 100.0 Bi-pap Bi-pap 03/01/20 16:00 97.7 89 22 142/86 (104) 90 03/01/20 16:00 115 03/01/20 16:00 100 03/01/20 15:15 96 36 91 100 03/01/20 12:00 99 03/01/20 12:00 149/104 03/01/20 11:46 100 03/01/20 11:45 97.7 99 24 149/104 (119) 91 03/01/20 11:45 Bi-pap 100.0 Bi-pap Bi-pap 03/01/20 11:16 90 34 91 100 03/01/20 09:00 98 141/100 03/01/20 08:00 Bi-pap 100.0 Bi-pap Bi-pap 03/01/20 08:00 100 03/01/20 08:00 97.5 98 24 141/100 (114) 92 03/01/20 07:46 88 03/01/20 07:20 90 30 90 100 03/01/20 07:20 91 Bi-Pap 100 03/01/20 05:03 143/101 03/01/20 04:00 100 03/01/20 04:00 97.5 90 24 143/101 (115) 93 03/01/20 04:00 Bi-pap 100.0 Bi-pap 03/01/20 04:00 92 03/01/20 03:13 93 28 90 100 03/01/20 00:40 76 03/01/20 00:00 Bi-pap 100.0 Bi-pap 03/01/20 00:00 96.8 85 26 140/100 (113) 92 03/01/20 00:00 100 02/29/20 23:09 97 27 89 100 02/29/20 23:00 131/78 02/29/20 20:00 Bi-pap 100.0 Bi-pap 02/29/20 20:00 100 02/29/20 20:00 96.8 88 23 131/78 (95) 94 02/29/20 19:32 94 02/29/20 19:05 110 34 91 100 02/29/20 19:05 91 Bi-Pap 100 Height (Feet): 5 Height (Inches): 10.00 Weight (Pounds): 240 General Appearance: no acute distress HEENT: normocephalic, atraumatic, anicteric Respiratory/Chest: crackles/rales, rhonchi - bilaterally Cardiovascular: normal rate, regular rhythm Abdomen: normal bowel sounds, soft, non tender, no organomegaly, non distended Genitourinary: other - no joseph Extremities: no cyanosis Skin: no rash Neurologic/Psychiatric: academic intern II-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 The infiltrates are typical for Covid 19. No evidence of pulmonary embolus. CT abdomen and pelvis: IMPRESSION: 1. Scattered hepatic hypodense lesions, too small to characterize on this examination without intravenous contrast. 2. Colonic diverticulosis without evidence of acute diverticulitis. 3. Scattered enlarged mesenteric lymph nodes, presumably reactive. teral pneumonia. The infiltrates are typical for Covid 19. No evidence of pulmonary embolus. Chest x-ray - 12/19/19 - Indication: Shortness of breath Technique: One view of the chest Comparison: 02/17/2020 Findings: Interim worsening of bilateral infiltrates, particularly on the right. The heart is borderline enlarged. The pleural spaces are clear. Left arm PICC is again demonstrated Impression: Worsening bilateral infiltrates over one day, likely pneumonia CT chest - 02/19/20 - IMPRESSION: Increased extensive patchy ground-glass opacities and densities throughout the lungs, suggestive of Covid 19 infection. Chest x-ray 02/23/20 - Procedure: XRAY Chest 1v As Indication: Reason For Exam: INFECT Technique: One view of the chest Comparison: 02/20/2020 Findings: Allowing for differences in exposure technique, bilateral mid and lower lung infiltrates are probably unchanged. The heart size is normal. The pleural spaces are clear. Impression: Unchanged, over 4 days, findings as above. Chest x-ray - 02/25/20 - FINDINGS: Lungs: Interval slightly worsening bilateral airspace disease. Pleural space: Unremarkable. No pneumothorax. Heart: Unremarkable. No cardiomegaly. Mediastinum: Unremarkable. Bones/joints: Unremarkable. IMPRESSION: Interval slightly worsening bilateral airspace disease. Microbiology Date/Time Source Procedure Growth Status 02/24/20 13:27 Blood Blood Culture - Final NO GROWTH AFTER 5 DAYS Complete 02/17/20 19:00 Urine,Clean Catch Urine Culture - Final NO GROWTH AFTER 48 HOURS Complete 02/10/20 06:30 Nasopharynx SARS-CoV-2 RdRp Gene Assay - Final Complete Labs Test 02/29/20 03:55 White Blood Count 13.4 K/UL (4.8-10.8) Red Blood Count 5.26 M/UL (4.70-6.10) Hemoglobin 15.1 G/DL (14.2-18.0) Hematocrit 46.5 % (42.0-52.0) Mean Corpuscular Volume 88 FL (80-99) Mean Corpuscular Hemoglobin 28.6 PG (27.0-31.0) Mean Corpuscular Hemoglobin Concent 32.4 G/DL (32.0-36.0) Red Cell Distribution Width 14.4 % (11.6-14.8) Platelet Count 253 K/UL (150-450) Mean Platelet Volume 7.2 FL (6.5-10.1) Neutrophils (%) (Auto) % (45.0-75.0) Lymphocytes (%) (Auto) % (20.0-45.0) Monocytes (%) (Auto) % (1.0-10.0) Eosinophils (%) (Auto) % (0.0-3.0) Basophils (%) (Auto) % (0.0-2.0) Differential Total Cells Counted 100 Neutrophils % (Manual) 95 % (45-75) Lymphocytes % (Manual) 4 % (20-45) Monocytes % (Manual) 1 % (1-10) Eosinophils % (Manual) 0 % (0-3) Basophils % (Manual) 0 % (0-2) Band Neutrophils 0 % (0-8) Platelet Estimate Adequate Platelet Morphology Normal Anisocytosis 1+ Sodium Level 146 MMOL/L (136-145) Potassium Level 3.8 MMOL/L (3.5-5.1) Chloride Level 109 MMOL/L (98-107) Carbon Dioxide Level 28 MMOL/L (21-32) Anion Gap 9 mmol/L (5-15) Blood Urea Nitrogen 29 mg/dL (7-18) Creatinine 1.1 MG/DL (0.55-1.30) Estimat Glomerular Filtration Rate > 60 mL/min (>60) Glucose Level 102 MG/DL (74-106) Calcium Level 8.4 MG/DL (8.5-10.1) Total Bilirubin 0.6 MG/DL (0.2-1.0) Aspartate Amino Transf (AST/SGOT) 40 U/L (15-37) Alanine Aminotransferase (ALT/SGPT) 24 U/L (12-78) Alkaline Phosphatase 163 U/L (46-116) Troponin I 0.012 ng/mL (0.000-0.056) Pro-B-Type Natriuretic Peptide 201 pg/mL (0-125) Total Protein 7.2 G/DL (6.4-8.2) Albumin 1.9 G/DL (3.4-5.0) Globulin 5.3 g/dL Albumin/Globulin Ratio 0.4 (1.0-2.7) Current Medications Medications (Trade) Dose Ordered Sig/Dennis Route PRN Reason Start Time Stop Time Status Last Admin Dose Admin Acetaminophen (Tylenol) 650 mg Q4H PRN ORAL Temp >100.5 02/05/20 13:15 03/06/20 13:14 02/27/20 21:22 Acetaminophen (Tylenol) 650 mg Q4H PRN ORAL Pain (1-3) 02/09/20 08:30 03/10/20 08:29 02/23/20 09:00 Amlodipine Besylate (Norvasc) 5 mg BID ORAL 02/10/20 09:00 03/11/20 08:59 02/29/20 18:10 Bisacodyl (Dulcolax) 10 mg HSPRN PRN RECTAL Constipation 02/05/20 13:15 05/05/20 13:14 Chlorhexidine Gluconate (Marlen-Hex 2%) 1 applic DAILY@1999 TOPIC 02/14/20 20:00 05/14/20 19:59 02/29/20 20:03 Dexamethasone Sodium Phosphate (Decadron 10mg/ ml Inj) 6 mg DAILY IV 02/27/20 09:00 03/08/20 08:59 03/01/20 08:58 Dextrose (Dextrose 50%) 25 ml Q30M PRN IV Hypoglycemia 02/05/20 13:15 05/05/20 13:14 Dextrose (Dextrose 50%) 50 ml Q30M PRN IV Hypoglycemia 02/05/20 13:15 05/05/20 13:14 Enoxaparin Sodium (Lovenox) 110 mg EVERY 12 HOURS SUBQ 02/28/20 21:00 05/19/20 20:59 03/01/20 09:00 Furosemide 100 mg/ Dextrose 100 ml @ 7.5 mls/hr [id number] IV 02/25/20 14:00 03/26/20 13:59 03/01/20 13:50 Hydralazine HCl (Apresoline) 50 mg Q6HR ORAL 02/17/20 19:30 05/17/20 19:29 03/01/20 12:00 Ibuprofen (Motrin) 600 mg TIDPRN PRN ORAL Breakthrough Pain 02/17/20 19:30 03/18/20 19:29 02/21/20 20:56 Magnesium Hydroxide (Mom) 30 ml HSPRN PRN ORAL Constipation 02/05/20 13:15 03/06/20 13:14 Meropenem 1 gm/ Sodium Chloride 100 ml @ 200 mls/hr Q8HR IVPB 02/28/20 22:00 03/05/20 21:59 03/01/20 13:51 Micafungin Sodium 100 mg/Sodium Chloride 100 ml @ 100 mls/hr Q24H IVPB 02/24/20 14:00 03/02/20 13:59 03/01/20 14:28 Ondansetron HCl (Zofran) 4 mg Q6H PRN IVP Nausea & Vomiting 02/05/20 13:15 03/06/20 13:14 Pantoprazole (Protonix) 40 mg DAILY ORAL 02/06/20 09:00 03/07/20 08:59 02/29/20 08:26 Polyethylene Glycol (Miralax) 17 gm HSPRN PRN ORAL Constipation 02/05/20 13:15 03/06/20 13:14 Promethazine HCl/ Codeine (Phenergan with Codeine) 5 ml Q4H PRN ORAL For Cough 02/22/20 12:15 03/23/20 12:14 02/26/20 04:05 Vancomycin HCl 300 ml @ 150 mls/hr Q8H IVPB 02/26/20 23:00 03/02/20 22:59 03/01/20 15:00 Vancomycin HCl (Vanco pharmacy to dose) 1 ea DAILY PRN MISC Per rx protocol 02/26/20 19:30 03/27/20 19:29 Kisha Salazar MD Mar 01, 2020 18:43
--- NOTE | 2020-03-01 19:02 | Cardiology Progress Note ---
Assessment/Plan Assessment/Plan Acute covid 19 pneumonia chest pain possible M/S infiltrate bilat bacteremia drug free for 28 years his of ivda on bipap echo normal wall motion last week hypoxemia unlikely cardiac related ct of the chest done most recently showed extensive infiltrate felt to be due to worsening covid 19 infection on full dose anticoagulation for potential PE as a cause of hypoxemia continue supportive care remain on bipap saturating borderline has been on lasix drip but should dc as na i high bnp near normal renal fxn is stable tele sinus tachy ekg and repeat trop are normal repeat cxr reviewed bilat infiltrate bp is fine Subjective Subjective pt now in covid 19 isolation per rn: desturate when axious remains on bipap Objective Last 24 Hour Vital Signs Date Time Temp Pulse Resp B/P (MAP) Pulse Ox O2 Delivery O2 Flow Rate FiO2 03/01/20 18:00 142/86 03/01/20 18:00 115 142/86 03/01/20 16:00 Bi-pap 100.0 Bi-pap Bi-pap 03/01/20 16:00 97.7 89 22 142/86 (104) 90 03/01/20 16:00 115 03/01/20 16:00 100 03/01/20 15:15 96 36 91 100 03/01/20 12:00 99 03/01/20 12:00 149/104 03/01/20 11:46 100 03/01/20 11:45 97.7 99 24 149/104 (119) 91 03/01/20 11:45 Bi-pap 100.0 Bi-pap Bi-pap 03/01/20 11:16 90 34 91 100 03/01/20 09:00 98 141/100 03/01/20 08:00 Bi-pap 100.0 Bi-pap Bi-pap 03/01/20 08:00 100 03/01/20 08:00 97.5 98 24 141/100 (114) 92 03/01/20 07:46 88 03/01/20 07:20 90 30 90 100 03/01/20 07:20 91 Bi-Pap 100 03/01/20 05:03 143/101 03/01/20 04:00 100 03/01/20 04:00 97.5 90 24 143/101 (115) 93 03/01/20 04:00 Bi-pap 100.0 Bi-pap 03/01/20 04:00 92 12/30/20 03:13 93 28 90 100 03/01/20 00:40 76 03/01/20 00:00 Bi-pap 100.0 Bi-pap 03/01/20 00:00 96.8 85 26 140/100 (113) 92 03/01/20 00:00 100 02/29/20 23:09 97 27 89 100 02/29/20 23:00 131/78 02/29/20 20:00 Bi-pap 100.0 Bi-pap 02/29/20 20:00 100 02/29/20 20:00 96.8 88 23 131/78 (95) 94 02/29/20 19:32 94 02/29/20 19:05 110 34 91 100 02/29/20 19:05 91 Bi-Pap 100 Intake and Output 02/29/20 03/01/20 19:00 07:00 Intake Total 907.5 ml 450.0 ml Output Total 1450 ml 750 ml Balance -542.5 ml -300.0 ml Intake Oral 840 ml 360 ml IV Total 67.5 ml 90.0 ml Output Urine Total 1450 ml 750 ml Laboratory Tests Test 03/01/20 03:55 Lactate Dehydrogenase Pending Objective pt in covid 19 isoaltion with acute infection per pulm HEENT: normocephalic, atraumatic Respiratory: chest wall non-tender Cardiovascular: normal rate, regular rhythm Abdomen: normal bowel sounds, soft, non tender, other - obes Manan Awan MD Mar 01, 2020 19:02
--- NOTE | 2020-03-01 19:36 | NUR ---
NURSE HAND-OFF REPORT: Important Events on Shift: Patient Status: guarded- desaturates without BIPAP Diet: Cardiac Pending Orders: Pending Results/Labs: Pending MD notification: Latest Vital Signs: Temperature 97.7 , Pulse 115 , B/P 142 /86 , Respiratory Rate 22 , O2 SAT 90 , Room Air, O2 Flow Rate 100.0 . Vital Sign Comment: EKG Rhythm: Sinus Rhythm Rhythm change?: N MD Notified?: Courtney Awan MD Response: Message left await call Latest Hassan Fall Score: 45 Fall Risk: High Risk Safety Measures: Call light Within Reach, Bed Alarm Zone 1, Side Rails Side Rails x2, Bed position Low and Locked. Fall Precautions: Patient Fall Education Report given to PRIYANKA Obrien.
[2020-03-01 20:00] VITALS: BP 134/95
--- NOTE | 2020-03-01 20:12 | NUR ---
NURSE NOTES: Report received from PRIYANKA Lyon. Observed pt lying in the bed, awake, able to make needs known, A/O x4. SR noted. On bipap 20/10, 100%, saturating at 89-90%. L UA PICC, asymptomatic, running TKO and Lasix at 7.5ml. Bed in the lowest position. Side rails up x3. Bed alarm on. Will continue to monitor.
[2020-03-01] MEDS: Dyna-Hex 2% Top Sol 2oz TOPIC SCH (21:05)
[2020-03-01] MEDS ORDERED: Vancomycin 1.5gm/300ml Premix 300 ML IVPB SCH (23:00)
[2020-03-02] VITALS: BP 140/94
--- NOTE | 2020-03-02 00:09 | NUR ---
NURSE NOTES: Pt on bipap, saturating at 89-90% at this time. Will continue to monitor.
[2020-03-02 04:00] VITALS: BP 115/68
[2020-03-02] MEDS: HydrALAZINE 50mg tab ORAL SCH ×7 (05:51→23:17)
[2020-03-02 06:28] LABS: HEMATOCRIT 49.7 % (42.0-52.0); HEMOGLOBIN 15.4 G/DL (14.2-18.0); MEAN CORPUSCULAR VOLUME 92 FL (80-99); PLATELET COUNT 339 K/UL (150-450); RED BLOOD COUNT 5.38 M/UL (4.70-6.10); RED CELL DISTRIBUTION WIDTH 13.9 % (11.6-14.8); WHITE BLOOD COUNT 16.6 K/UL (4.8-10.8)
--- NOTE | 2020-03-02 06:30 | NUR ---
NURSE NOTES: On bipap 20/10, 100%, saturating 88-[address] with HR of 105 noted. No other distress noted. Will continue to monitor.
[2020-03-02 06:54] LABS: ALANINE AMINOTRANSFERASE 27 U/L (12-78); ALBUMIN/GLOBULIN RATIO 0.4 (1.0-2.7); ALKALINE PHOSPHATASE 124 U/L (46-116); ANION GAP 8 mmol/L (5-15); ASPARTATE AMINO TRANSFERASE 47 U/L (15-37); BILIRUBIN,TOTAL 0.5 MG/DL (0.2-1.0); BLOOD UREA NITROGEN 43 mg/dL (7-18); CALCIUM 7.8 MG/DL (8.5-10.1); CARBON DIOXIDE 28 MMOL/L (21-32); CHLORIDE 116 MMOL/L (98-107); CREATININE 1.2 MG/DL (0.55-1.30); POTASSIUM 3.4 MMOL/L (3.5-5.1); SODIUM 152 MMOL/L (136-145)
--- NOTE | 2020-03-02 07:53 | NUR ---
NURSE HAND-OFF REPORT: Important Events on Shift:On bipap, 100%, saturating between 88-92%. Noted pt desat when he gets anxious. Patient Status: poor Diet: no appetite. Pending Orders: [] Pending Results/Labs:[] Pending MD notification:[] Latest Vital Signs: Temperature 96.6 , Pulse 95 , B/P 115 /68 , Respiratory Rate 24 , O2 SAT 89 , Room Air, O2 Flow Rate 100.0 . Vital Sign Comment: [] EKG Rhythm: Sinus Rhythm Rhythm change?: N MD Notified?: Y -Dr. Emperatriz INTERIANO Response: Message left await call Latest Hassan Fall Score: 45 Fall Risk: High Risk Safety Measures: Call light Within Reach, Bed Alarm Zone 1, Side Rails Side Rails x2, Bed position Low and Locked. Fall Precautions: Patient Fall Education Report given to Kapadia RN.
--- NOTE | 2020-03-02 07:54 | NUR ---
NURSE NOTES: Received patient in bed asleep. Bipap in place. PICC line intact and patent. HOB elevated. Bed locked in low position. Call light within reach. Will continue plan of care.
[2020-03-02 08:00] VITALS: BP 120/89
--- NOTE | 2020-03-02 09:47 | NUR ---
RADIOLOGY DEPT., CHEST X-RAY DONE.-P.DYE
[2020-03-02] MEDS: dexAMETHasone 10mg/ml Inj IV SCH (09:56)
[2020-03-02] MEDS: Enoxaparin 120 mg inj SUBQ SCH ×2 (09:58→21:09)
--- NOTE | 2020-03-02 10:47 | NUR ---
Finance And Administration ManagerAutomated Manufacturing Instructor SI: Respiratory Failure, COVID PNA T 97.5, HR 98, RR 24, BP 141/100 BIPAP 20/10, FiO2 100% O2 sat 92% WBC 16.6, BUN 43, NA+ 152, K+ 3.4, Alk Phos 124 IS: Vancomycin IV q 8 h Lovenox SQ q 12 h Dexamethasone IV QD Lasix IV Micafungin IV q 24 h Step Down Status
[2020-03-02] MEDS: Vancomycin 1.5gm/300ml Premix 300 ML IVPB SCH ×2 (11:52→23:17)
[2020-03-02 12:00] VITALS: BP 130/93
--- NOTE | 2020-03-02 13:39 | Pulmonology Progress Note ---
Subjective ROS Limited/Unobtainable: Yes Interval Events: tolerating BiPAP Constitutional: Reports: other - on bipap, fevers less, eating more ; Denies: fever HEENT: Repors: no symptoms Respiratory: Reports: dry cough, shortness of breath Cardiovascular: Denies: no symptoms, chest pain, palpitations, other Gastrointestinal/Abdominal: Denies: nausea, vomiting, diarrhea Psychiatric: Reports: other - NA Skin: Denies: rash Musculoskeletal: Denies: pain Allergies: Coded Allergies: No Known Allergies (Unverified , 02/05/20) Objective Last 24 Hour Vital Signs Date Time Temp Pulse Resp B/P (MAP) Pulse Ox O2 Delivery O2 Flow Rate FiO2 03/02/20 12:52 102 40 92 100 03/02/20 12:20 130/93 03/02/20 12:00 97.7 93 24 130/93 (105) 83 03/02/20 12:00 121 03/02/20 12:00 100 03/02/20 12:00 Bi-pap 100.0 Bi-pap Bi-pap 03/02/20 08:14 92 Bi-Pap 100 03/02/20 08:00 Bi-pap 100.0 Bi-pap Bi-pap 03/02/20 08:00 128 03/02/20 08:00 100 03/02/20 08:00 98.2 94 24 120/89 (99) 86 03/02/20 07:20 96 34 92 100 03/02/20 06:00 115/68 03/02/20 04:00 96.6 95 24 115/68 (84) 89 03/02/20 04:00 107 03/02/20 04:00 100 03/02/20 04:00 Bi-pap 100.0 Bi-pap Bi-pap 03/02/20 01:13 116 32 90 100 03/02/20 00:00 97.7 88 24 140/94 (109) 89 03/02/20 00:00 98 03/02/20 00:00 140/94 03/02/20 00:00 Bi-pap 100.0 Bi-pap Bi-pap 03/01/20 20:00 98 03/01/20 20:00 97.7 88 24 134/95 (108) 89 03/01/20 20:00 Bi-pap 100.0 Bi-pap Bi-pap 03/01/20 20:00 100 03/01/20 19:42 92 Bi-Pap 100 03/01/20 19:42 98 23 92 100 03/01/20 18:00 142/86 03/01/20 18:00 115 142/86 03/01/20 16:00 Bi-pap 100.0 Bi-pap Bi-pap 03/01/20 16:00 97.7 89 22 142/86 (104) 90 03/01/20 16:00 115 03/01/20 16:00 100 03/01/20 15:15 96 36 91 100 Intake and Output 03/01/20 03/02/20 19:00 07:00 Intake Total 337.5 ml 330.0 ml Output Total 850 ml Balance -512.5 ml 330.0 ml Intake Oral 300 ml 240 ml IV Total 37.5 ml 90.0 ml Output Urine Total 850 ml # Bowel Movements 1 General Appearance: WD/WN, no acute distress HEENT: normocephalic, atraumatic Respiratory: chest wall non-tender Cardiovascular: normal rate, regular rhythm Abdomen: normal bowel sounds, soft, non tender, other - obese Laboratory Tests 03/01/20 22:40: Lactate Dehydrogenase 493H, Vancomycin Level Trough 33.2H 03/02/20 04:30: White Blood Count 16.6H, Red Blood Count 5.38, Hemoglobin 15.4, Hematocrit 49.7, Mean Corpuscular Volume 92, Mean Corpuscular Hemoglobin 28.7, Mean Corpuscular Hemoglobin Concent 31.1L, Red Cell Distribution Width 13.9, Platelet Count 339, Mean Platelet Volume 6.9, Neutrophils (%) (Auto) , Lymphocytes (%) (Auto) , Monocytes (%) (Auto) , Eosinophils (%) (Auto) , Basophils (%) (Auto) , Differ ential Total Cells Counted 100, Neutrophils % (Manual) 95H, Lymphocytes % (Manual) 3L, Monocytes % (Manual) 2, Eosinophils % (Manual) 0, Basophils % (Manual) 0, Band Neutrophils 0, Platelet Estimate Adequate, Platelet Morphology Normal, Red Blood Cell Morphology Normal, Sodium Level 152H, Potassium Level 3.4L, Chloride Level 116H, Carbon Dioxide Level 28, Anion Gap 8, Blood Urea Nitrogen 43H, Creatinine 1.2, Estimat Glomerular Filtration Rate > 60, Glucose Level 87, Calcium Level 7.8L, Magnesium Level 2.0, Total Bilirubin 0.5, Aspartate Amino Transf (AST/SGOT) 47H, Alanine Aminotransferase (ALT/SGPT) 27, Alkaline Phosphatase 124H, C-Reactive Protein, Quantitative 8.0H, Pro-B-Type Natriuretic Peptide 166H, Total Protein 6.9, Albumin 2.0L, Globulin 4.9, Albumin/Globulin Ratio 0.4L Current Medications Medications (Trade) Dose Ordered Sig/Dennis Route PRN Reason Start Time Stop Time Status Last Admin Dose Admin Acetaminophen (Tylenol) 650 mg Q4H PRN ORAL Temp >100.5 02/05/20 13:15 03/06/20 13:14 02/27/20 21:22 Acetaminophen (Tylenol) 650 mg Q4H PRN ORAL Pain (1-3) 02/09/20 08:30 03/10/20 08:29 02/23/20 09:00 Amlodipine Besylate (Norvasc) 5 mg BID ORAL 02/10/20 09:00 03/11/20 08:59 03/01/20 18:00 Bisacodyl (Dulcolax) 10 mg HSPRN PRN RECTAL Constipation 02/05/20 13:15 05/05/20 13:14 Chlorhexidine Gluconate (Marlen-Hex 2%) 1 applic DAILY@2000 TOPIC 02/14/20 20:00 05/14/20 19:59 03/01/20 21:05 Dexamethasone Sodium Phosphate (Decadron 10mg/ ml Inj) 6 mg DAILY IV 02/27/20 09:00 03/08/20 08:59 03/02/20 09:56 Dextrose (Dextrose 50%) 25 ml Q30M PRN IV Hypoglycemia 02/05/20 13:15 05/05/20 13:14 Dextrose (Dextrose 50%) 50 ml Q30M PRN IV Hypoglycemia 02/05/20 13:15 05/05/20 13:14 Enoxaparin Sodium (Lovenox) 110 mg EVERY 12 HOURS SUBQ 02/28/20 21:00 05/19/20 20:59 03/02/20 09:58 Furosemide 100 mg/ Dextrose 100 ml @ 7.5 mls/hr [id number] IV 02/25/20 14:00 03/26/20 13:59 03/02/20 07:14 Hydralazine HCl (Apresoline) 50 mg Q6HR ORAL 02/17/20 19:30 05/17/20 19:29 03/02/20 12:20 Ibuprofen (Motrin) 600 mg TIDPRN PRN ORAL Breakthrough Pain 02/17/20 19:30 03/18/20 19:29 02/21/20 20:56 Magnesium Hydroxide (Mom) 30 ml HSPRN PRN ORAL Constipation 02/05/20 13:15 03/06/20 13:14 Meropenem 1 gm/ Sodium Chloride 100 ml @ 200 mls/hr Q8HR IVPB 02/28/20 22:00 03/05/20 21:59 03/02/20 05:51 Micafungin Sodium 100 mg/Sodium Chloride 100 ml @ 100 mls/hr Q24H IVPB 03/02/20 14:00 03/09/20 13:59 Ondansetron HCl (Zofran) 4 mg Q6H PRN IVP Nausea & Vomiting 02/05/20 13:15 03/06/20 13:14 Pantoprazole (Protonix) 40 mg DAILY ORAL 02/06/20 09:00 03/07/20 08:59 02/29/20 08:26 Polyethylene Glycol (Miralax) 17 gm HSPRN PRN ORAL Constipation 02/05/20 13:15 03/06/20 13:14 Promethazine HCl/ Codeine (Phenergan with Codeine) 5 ml Q4H PRN ORAL For Cough 02/22/20 12:15 03/23/20 12:14 02/26/20 04:05 Vancomycin HCl 300 ml @ 150 mls/hr Q12H IVPB 03/02/20 11:00 03/07/20 10:59 03/02/20 11:52 Vancomycin HCl (Vanco pharmacy to dose) 1 ea DAILY PRN MISC Per rx protocol 02/26/20 19:30 03/27/20 19:29 Assessment/Plan Assessment/Plan 1.COVID-19 pneumonia. - last COVID-19 test positive after two negative tests - CTA 02/05/2020 ground-glass and consolidating infiltrates in the dependent portions of both lower lobes and to lesser degree the upper lobes consistent with bilateral pneumonia. No evidence of pulmonary embolus. - CXR 02/17/2020 worsening bilateral infiltrates; on broad spectrum abx per ID - CT chest 02/18 shows Increased extensive patchy ground-glass opacities and densities throughout the lungs, suggestive of Covid 19 infection. - currently on BiPAP. Saturations 90%. - Mycoplasma pneumoniae IgG 273; M. pneumoniae IgM titer within normal limits - D-dimer 0.90; on full dose Lovenox - restarted decadron and remdesivir per ID due to worsening hypoxia - Continuing on Lasix gtt - is now net I/O negative 2. Initial negative rapid COVID-19 gene assay.- however repeat COVID-19 test positive 3. Smoker. 4. DVT ppx - on lovenox 5. Hypertension - on hydralazine, and norvasc - On cardiac diet 6. Blood culture positive for gram positive cocci staph aureus - on Abx - CT abd/pelvis showed no abscess per ID - TTE/ FERNY held off due to COVID-19 status - PICC line in place HIV antibody 1&2 neg We will follow carefully. John Mata MD Mar 02, 2020 13:39
--- NOTE | 2020-03-02 14:34 | Diagnostic Imaging Report ---
Indication: Shortness of breath Technique: One view of the chest Comparison: 02/25/2020 Findings: Bilateral interstitial and airspace infiltrates are unchanged. The heart size is normal. Left arm PICC is again demonstrated Impression: Unchanged, over one day, findings as above.
[2020-03-02 16:00] VITALS: BP 113/86
--- NOTE | 2020-03-02 19:30 | NUR ---
NURSE HAND-OFF REPORT: Important Events on Shift: Patient Status: alert, irritable Diet: cardiac, poor PO intake Pending Orders: Pending Results/Labs: Pending MD notification: Latest Vital Signs: Temperature 97.7 , Pulse 104 , B/P 113 /86 , Respiratory Rate 24 , O2 SAT 86 , Room Air, O2 Flow Rate 100.0 . Vital Sign Comment: EKG Rhythm: Sinus Tachycardia Rhythm change?: N MD Notified?: MD Response: Latest Hassan Fall Score: 45 Fall Risk: High Risk Safety Measures: Call light Within Reach, Bed Alarm Zone 1, Side Rails Side Rails x2, Bed position Low and Locked. Fall Precautions: Patient Fall Education Report given to Tiana MATHEW.
--- NOTE | 2020-03-02 19:31 | NUR ---
NURSE NOTES: Report received from PRIYANKA Tsang. Patient is awake on bed, alert and oriented x 4. quality assurance monitor final is in place, shows sinus tachycardia with no chest pain reported. On cardiac diet, instructed and amenable, but patient has poor appetite. On fall and aspiration precaution, bed alarm is on. Patient is continent and uses his urinals. With PICC line on left upper arm double lumen, running Lasix 7.5 cc/hour. Safety measures are in place, bed in lowest and locked position, side rails up x 2, call light button and bedside table within reach, instructed to call for any assistance needed. Will continue plan of care.
[2020-03-02 20:00] VITALS: BP 127/97
[2020-03-02] MEDS: Dyna-Hex 2% Top Sol 2oz TOPIC SCH (21:08)
[2020-03-03] VITALS: BP 123/93
--- NOTE | 2020-03-03 03:00 | NUR ---
NURSE NOTES: Patient has still with poor appetite, tried a teaspoon of apple sauce but he cough and desaturate to 75-78% afterwards. Noted Nutrition recommendation, will endorse to am RN.
[2020-03-03 04:00] VITALS: BP 140/90
[2020-03-03] MEDS: HydrALAZINE 50mg tab ORAL SCH ×4 (05:25→23:54)
--- NOTE | 2020-03-03 07:23 | NUR ---
NURSE HAND-OFF REPORT: Important Events on Shift: Patient still desating every time we're taking off his bipap to take his oral medications, lowest is 72% and highest 86-88%. No chest pain reported. Patient Status: Patient is awake on bed in stable condition. Plan of care endorsed. Diet: Cardiac diet. Pending Orders: none Pending Results/Labs:none Pending MD notification:none Latest Vital Signs: Temperature 98.1 , Pulse 88 , B/P 140 /90 , Respiratory Rate 29 , O2 SAT 89 , Room Air, O2 Flow Rate 100.0 . Vital Sign Comment: stable EKG Rhythm: Sinus Rhythm Rhythm change?: N MD Notified?: Courtney Awan MD Response: Message left await call Latest Hassan Fall Score: 45 Fall Risk: High Risk Safety Measures: Call light Within Reach, Bed Alarm Zone 1, Side Rails Side Rails x2, Bed position Low and Locked. Fall Precautions: Yellow Socks Yellow Gown Door Sign Patient Fall Education Report given to PRIYANKA Clarke.
--- NOTE | 2020-03-03 07:24 | NUR ---
NURSE NOTES: Received patient report from PRIYANKA Jensen. Pt is AO x4. nuclear monitoring technician in place showing ST. Patient on fall and aspiration precaution. With PICC line on left upper arm double lumen, running Lasix 7.5 cc/hour. Bed in lowest position locked, with side rails x2 up. Call light within reach.
[2020-03-03 08:00] VITALS: BP 140/90
[2020-03-03] MEDS: Enoxaparin 120 mg inj SUBQ SCH ×2 (08:35→21:45)
[2020-03-03] MEDS: dexAMETHasone 10mg/ml Inj IV SCH (08:35)
[2020-03-03 12:00] VITALS: BP 125/90
--- NOTE | 2020-03-03 12:19 | Pulmonology Progress Note ---
Subjective ROS Limited/Unobtainable: Yes Interval Events: tolerating BiPAP Constitutional: Reports: other - on bipap, fevers less, eating more ; Denies: fever HEENT: Repors: no symptoms Respiratory: Reports: dry cough, shortness of breath Cardiovascular: Denies: no symptoms, chest pain, palpitations, other Gastrointestinal/Abdominal: Denies: nausea, vomiting, diarrhea Psychiatric: Reports: other - NA Skin: Denies: rash Musculoskeletal: Denies: pain Allergies: Coded Allergies: No Known Allergies (Unverified , 02/05/20) Objective Last 24 Hour Vital Signs Date Time Temp Pulse Resp B/P (MAP) Pulse Ox O2 Delivery O2 Flow Rate FiO2 03/03/20 12:00 100 03/03/20 12:00 Bi-pap 100.0 Bi-pap Bi-pap 03/03/20 08:35 95 132/88 03/03/20 08:00 100 03/03/20 08:00 97.4 120 24 140/90 (107) 89 03/03/20 08:00 Bi-pap 100.0 Bi-pap Bi-pap 03/03/20 07:47 125 03/03/20 07:21 110 24 86 100 03/03/20 05:25 140/90 03/03/20 04:00 100 03/03/20 04:00 98.1 88 29 140/90 (107) 89 03/03/20 04:00 98 03/03/20 04:00 Bi-pap 100.0 Bi-pap Bi-pap 03/03/20 03:19 105 29 85 100 03/03/20 00:00 Bi-pap 100.0 Bi-pap Bi-pap 03/03/20 00:00 100 03/03/20 00:00 101 03/03/20 00:00 97.0 91 24 123/93 (103) 93 03/02/20 23:17 127/97 03/02/20 23:04 102 27 87 100 03/02/20 20:00 100 03/02/20 20:00 97.9 93 25 127/97 (107) 93 03/02/20 20:00 Bi-pap 100.0 Bi-pap Bi-pap 03/02/20 20:00 97 03/02/20 19:50 106 35 88 100 03/02/20 17:30 113/86 03/02/20 17:30 104 113/86 03/02/20 16:00 108 03/02/20 16:00 100 03/02/20 16:00 97.7 104 24 113/86 (95) 86 03/02/20 16:00 Bi-pap 100.0 Bi-pap Bi-pap 03/02/20 12:52 102 40 92 100 03/02/20 12:20 130/93 Intake and Output 03/02/20 03/03/20 19:00 07:00 Intake Total 360 ml Output Total 900 ml 650 ml Balance -900 ml -290 ml Intake Oral 360 ml Output Urine Total 900 ml 650 ml # Voids 4 Objective 03/03 saturating in the low 80s on BiPAP 02/28 saturating 93% on BiPAP 02/23 saturating 94% on BiPAP 02/22 tolerating BiPAP, saturating at 90% 02/21 now on BiPAP, saturating at 95% 02/18 still on 15L NRB mask saturating 88-93% 02/17 now on 15L NRB mask saturating at 91% 02/17/2020 now on 2 lpm NC 02/16/2020 no change 02/15/2020 no major change 02/14/2020 saturating well on RAD; NAD 02/13/2020 pt asleep; saturating well on RA 02/12/2020 sitting up in a chair; saturating well on RA 02/11/2020 back on isolation due to COVID-19 positive status again; currently being worked up for positive blood culture 02/09/2020 off isolation; saturating well on RA 02/08/2020 feeling better; COVID-19 PCR neg 02/07/2020 reports feeling better; COVID-19 PCR pending 02/06/2020 pt laying in bed; reports feeling better General Appearance: WD/WN, no acute distress HEENT: normocephalic, atraumatic Respiratory: chest wall non-tender Cardiovascular: normal rate, regular rhythm Abdomen: normal bowel sounds, soft, non tender, other - obese Current Medications Medications (Trade) Dose Ordered Sig/Dennis Route PRN Reason Start Time Stop Time Status Last Admin Dose Admin Acetaminophen (Tylenol) 650 mg Q4H PRN ORAL Temp >100.5 02/05/20 13:15 03/06/20 13:14 02/27/20 21:22 Acetaminophen (Tylenol) 650 mg Q4H PRN ORAL Pain (1-3) 02/09/20 08:30 03/10/20 08:29 02/23/20 09:00 Amlodipine Besylate (Norvasc) 5 mg BID ORAL 02/10/20 09:00 03/11/20 08:59 03/03/20 08:35 Bisacodyl (Dulcolax) 10 mg HSPRN PRN RECTAL Constipation 02/05/20 13:15 05/05/20 13:14 Chlorhexidine Gluconate (Marlen-Hex 2%) 1 applic DAILY@2000 TOPIC 02/14/20 20:00 05/14/20 19:59 03/02/20 21:08 Dexamethasone Sodium Phosphate (Decadron 10mg/ ml Inj) 6 mg DAILY IV 02/27/20 09:00 03/08/20 08:59 03/03/20 08:35 Dextrose (Dextrose 50%) 25 ml Q30M PRN IV Hypoglycemia 02/05/20 13:15 05/05/20 13:14 Dextrose (Dextrose 50%) 50 ml Q30M PRN IV Hypoglycemia 02/05/20 13:15 05/05/20 13:14 Enoxaparin Sodium (Lovenox) 110 mg EVERY 12 HOURS SUBQ 02/28/20 21:00 05/19/20 20:59 03/03/20 08:35 Hydralazine HCl (Apresoline) 50 mg Q6HR ORAL 02/17/20 19:30 05/17/20 19:29 03/03/20 05:25 Ibuprofen (Motrin) 600 mg TIDPRN PRN ORAL Breakthrough Pain 02/17/20 19:30 03/18/20 19:29 02/21/20 20:56 Magnesium Hydroxide (Mom) 30 ml HSPRN PRN ORAL Constipation 02/05/20 13:15 03/06/20 13:14 Meropenem 1 gm/ Sodium Chloride 100 ml @ 200 mls/hr Q8HR IVPB 02/28/20 22:00 03/05/20 21:59 03/03/20 05:23 Micafungin Sodium 100 mg/Sodium Chloride 100 ml @ 100 mls/hr Q24H IVPB 03/02/20 14:00 03/09/20 13:59 03/02/20 15:50 Ondansetron HCl (Zofran) 4 mg Q6H PRN IVP Nausea & Vomiting 02/05/20 13:15 03/06/20 13:14 Pantoprazole (Protonix) 40 mg DAILY ORAL 02/06/20 09:00 03/07/20 08:59 03/03/20 08:35 Polyethylene Glycol (Miralax) 17 gm HSPRN PRN ORAL Constipation 02/05/20 13:15 03/06/20 13:14 Promethazine HCl/ Codeine (Phenergan with Codeine) 5 ml Q4H PRN ORAL For Cough 02/22/20 12:15 03/23/20 12:14 02/26/20 04:05 Vancomycin HCl 300 ml @ 150 mls/hr Q12H IVPB 03/02/20 11:00 03/07/20 10:59 03/02/20 23:17 Vancomycin HCl (Vanco pharmacy to dose) 1 ea DAILY PRN MISC Per rx protocol 02/26/20 19:30 03/27/20 19:29 Assessment/Plan Assessment/Plan 1.COVID-19 pneumonia. - last COVID-19 test positive after two negative tests - CTA 02/05/2020 ground-glass and consolidating infiltrates in the dependent portions of both lower lobes and to lesser degree the upper lobes consistent with bilateral pneumonia. No evidence of pulmonary embolus. - CXR 02/17/2020 worsening bilateral infiltrates; on broad spectrum abx per ID - CT chest 02/18 shows Increased extensive patchy ground-glass opacities and densities throughout the lungs, suggestive of Covid 19 infection. - currently on BiPAP. Saturations 90%. - Mycoplasma pneumoniae IgG 273; M. pneumoniae IgM titer within normal limits - D-dimer 0.90; on full dose Lovenox - on decadron per ID due to worsening hypoxia - s/p remdesivir - now off Lasix per Dr. Awan due to elevated Na - is now net I/O negative 2. Initial negative rapid COVID-19 gene assay.- however repeat COVID-19 test positive 3. Smoker. 4. DVT ppx - on lovenox 5. Hypertension - on hydralazine, and norvasc - On cardiac diet 6. Blood culture positive for gram positive cocci staph aureus - on Abx - CT abd/pelvis showed no abscess per ID - TTE/ FERNY held off due to COVID-19 status - PICC line in place 7. low appetite HIV antibody 1&2 neg We will follow carefully The patient was seen and examined at bedside and all new and available data was reviewed in the patients chart. I agree with the above findings, impression, and plan. (Patient was seen earlier today. Signature timestamp does not reflect patient encounter time) John Mata MD . Edilson Marinelli Mar 03, 2020 12:19 John Mata MD Mar 03, 2020 15:32
[2020-03-03] MEDS: Vancomycin 1.5gm/300ml Premix 300 ML IVPB SCH ×2 (12:34→23:54)
--- NOTE | 2020-03-03 14:13 | NUR ---
CASE MANAGEMENT: REVIEW 03/03/2020 SI:SEPSIS. COVID (+) VS: T 98.1 HR 101 RR 19 SATS 82% ON BIPAP FIO2 100 LABS; NO LABS TODAY IS:NORVASC PO BID PROTONIX PO QD DECADRON IV QD VANCO IV Q12H MICAFUNGIN IV Q24H HYDRALAZINE PO Q6H MEROPENEM IV Q8H SDU
--- NOTE | 2020-03-03 15:21 | Cardiology Progress Note ---
Assessment/Plan Problem List: (1) Hypertension (2) COVID-19 virus infection (3) Staphylococcus aureus bacteremia (4) Chest pain (5) Pneumonia Status: stable, progressing Status Narrative Pt afebrile, but w/ increasing WBC and declining o2 sats, on bipap vent. XR w/ bilat lower field infiltrates. Inc Na and low K noted. Previously on lasix. Assessment/Plan Continue current treatment w/ iv abx for pneumonia and staph bacteremia. Iv steroids, bipap vent and further management of respiratory failure, COVID 19 infection, per pulmonary. Remain off lasix, as pt w/ prerenal azotemia, hypernatremia . supplement K Subjective ROS Limited/Unobtainable: No Subjective Cardiology for Dr. Awan Pt with no new c/o. Events noted Objective Last 24 Hour Vital Signs Date Time Temp Pulse Resp B/P (MAP) Pulse Ox O2 Delivery O2 Flow Rate FiO2 03/03/20 14:46 110 31 86 100 03/03/20 12:34 125/90 03/03/20 12:00 100 03/03/20 12:00 101 03/03/20 12:00 98.1 91 19 125/90 (102) 82 03/03/20 12:00 Bi-pap 100.0 Bi-pap Bi-pap 03/03/20 11:36 107 28 85 100 03/03/20 08:35 95 132/88 03/03/20 08:00 100 03/03/20 08:00 97.4 120 24 140/90 (107) 89 03/03/20 08:00 Bi-pap 100.0 Bi-pap Bi-pap 03/03/20 07:47 125 03/03/20 07:21 110 24 86 100 03/03/20 05:25 140/90 03/03/20 04:00 100 03/03/20 04:00 98.1 88 29 140/90 (107) 89 03/03/20 04:00 98 03/03/20 04:00 Bi-pap 100.0 Bi-pap Bi-pap 03/03/20 03:19 105 29 85 100 03/03/20 00:00 Bi-pap 100.0 Bi-pap Bi-pap 03/03/20 00:00 100 03/03/20 00:00 101 03/03/20 00:00 97.0 91 24 123/93 (103) 93 03/02/20 23:17 127/97 03/02/20 23:04 102 27 87 100 03/02/20 20:00 100 03/02/20 20:00 97.9 93 25 127/97 (107) 93 03/02/20 20:00 Bi-pap 100.0 Bi-pap Bi-pap 03/02/20 20:00 97 03/02/20 19:50 106 35 88 100 03/02/20 17:30 113/86 03/02/20 17:30 104 113/86 03/02/20 16:00 108 03/02/20 16:00 100 03/02/20 16:00 97.7 104 24 113/86 (95) 86 03/02/20 16:00 Bi-pap 100.0 Bi-pap Bi-pap General Appearance: other - exam deferred as pt on COVID isolation Intake and Output 03/02/20 03/03/20 19:00 07:00 Intake Total 360 ml Output Total 900 ml 650 ml Balance -900 ml -290 ml Intake Oral 360 ml Output Urine Total 900 ml 650 ml # Voids 4 Labs Test 03/01/20 22:40 03/02/20 04:30 Lactate Dehydrogenase 493 U/L (81-234) Vancomycin Level Trough 33.2 ug/mL (5.0-12.0) White Blood Count 16.6 K/UL (4.8-10.8) Red Blood Count 5.38 M/UL (4.70-6.10) Hemoglobin 15.4 G/DL (14.2-18.0) Hematocrit 49.7 % (42.0-52.0) Mean Corpuscular Volume 92 FL (80-99) Mean Corpuscular Hemoglobin 28.7 PG (27.0-31.0) Mean Corpuscular Hemoglobin Concent 31.1 G/DL (32.0-36.0) Red Cell Distribution Width 13.9 % (11.6-14.8) Platelet Count 339 K/UL (150-450) Mean Platelet Volume 6.9 FL (6.5-10.1) Neutrophils (%) (Auto) % (45.0-75.0) Lymphocytes (%) (Auto) % (20.0-45.0) Monocytes (%) (Auto) % (1.0-10.0) Eosinophils (%) (Auto) % (0.0-3.0) Basophils (%) (Auto) % (0.0-2.0) Differential Total Cells Counted 100 Neutrophils % (Manual) 95 % (45-75) Lymphocytes % (Manual) 3 % (20-45) Monocytes % (Manual) 2 % (1-10) Eosinophils % (Manual) 0 % (0-3) Basophils % (Manual) 0 % (0-2) Band Neutrophils 0 % (0-8) Platelet Estimate Adequate Platelet Morphology Normal Red Blood Cell Morphology Normal Sodium Level 152 MMOL/L (136-145) Potassium Level 3.4 MMOL/L (3.5-5.1) Chloride Level 116 MMOL/L (98-107) Carbon Dioxide Level 28 MMOL/L (21-32) Anion Gap 8 mmol/L (5-15) Blood Urea Nitrogen 43 mg/dL (7-18) Creatinine 1.2 MG/DL (0.55-1.30) Estimat Glomerular Filtration Rate > 60 mL/min (>60) Glucose Level 87 MG/DL (74-106) Calcium Level 7.8 MG/DL (8.5-10.1) Magnesium Level 2.0 MG/DL (1.8-2.4) Total Bilirubin 0.5 MG/DL (0.2-1.0) Aspartate Amino Transf (AST/SGOT) 47 U/L (15-37) Alanine Aminotransferase (ALT/SGPT) 27 U/L (12-78) Alkaline Phosphatase 124 U/L (46-116) C-Reactive Protein, Quantitative 8.0 mg/dL (0.00-0.90) Pro-B-Type Natriuretic Peptide 166 pg/mL (0-125) Total Protein 6.9 G/DL (6.4-8.2) Albumin 2.0 G/DL (3.4-5.0) Globulin 4.9 g/dL Albumin/Globulin Ratio 0.4 (1.0-2.7) Lily Rene MD Mar 03, 2020 15:21
[2020-03-03 16:00] VITALS: BP 135/89
[2020-03-03] MEDS ORDERED: NS 275ml ONE (16:02)
--- NOTE | 2020-03-03 18:08 | Infectious Diseases Prog Note ---
Assessment/Plan Assessment/Plan ASSESSMENT AND PLAN: 1. staph aureus bacteremia/mssa, ? source, ? endocarditis, sepsis, leukocytosis, ? CAP, PJP less likely with HIV negative and steroids < 1 month covid-19 +, hypoxia, sob, chest x-ray worse, ? PE, ? HCAP/aspiration pna recurrent fevers - ? fungal, ? OI leukocytosis noted - ? new infection, ? steroids cocci serology negative, legionella negative, beta 1,3 D-glucan wnl, Il-16 - 13.7 - meropenem, micafungin, vancomycin - day # 9/10 combination - day # 24 mssa tx post neg blood cultures - on dexamethasone, s/p remdesivir, bipap - monitor hypoxia, labs and chest x-ray - CT imaging noted - reculture for worsening leukocytosis 2. covid-19 isolation 3. Hypertension history. Blood pressure treatment primary care team. 4. Elevated blood sugars. Blood sugar treatment per primary care team. 5. No known drug allergies. 6. Social history is positive for smoking. 7. Family history is noncontributory. 8. MAR was noted. 9. Case was discussed with RN. 10. Continue treatment per primary consultants. Subjective Constitutional: Reports: fatigue, other - still on bipap; Denies: fever HEENT: Reports: congestion Respiratory: Reports: shortness of breath Cardiovascular: Denies: chest pain Gastrointestinal/Abdominal: Denies: nausea, vomiting Genitourinary: Denies: dysuria, hematuria Neurologic: Denies: headache Psychiatric: Reports: other - NA Skin: Denies: rash Hematologic: Denies: bleeding Musculoskeletal: Reports: other - NA Allergies: Coded Allergies: No Known Allergies (Unverified , 02/05/20) Objective Last 24 Hour Vital Signs Date Time Temp Pulse Resp B/P (MAP) Pulse Ox O2 Delivery O2 Flow Rate FiO2 03/03/20 16:00 100 03/03/20 16:00 97.0 110 20 135/89 (104) 85 03/03/20 16:00 Bi-pap 100.0 Bi-pap Bi-pap 03/03/20 16:00 100 03/03/20 14:46 110 31 86 100 03/03/20 12:34 125/90 03/03/20 12:00 100 03/03/20 12:00 101 03/03/20 12:00 98.1 91 19 125/90 (102) 82 03/03/20 12:00 Bi-pap 100.0 Bi-pap Bi-pap 03/03/20 11:36 107 28 85 100 03/03/20 08:35 95 132/88 03/03/20 08:00 100 03/03/20 08:00 97.4 120 24 140/90 (107) 89 03/03/20 08:00 Bi-pap 100.0 Bi-pap Bi-pap 03/03/20 07:47 125 03/03/20 07:21 110 24 86 100 03/03/20 05:25 140/90 03/03/20 04:00 100 03/03/20 04:00 98.1 88 29 140/90 (107) 89 03/03/20 04:00 98 03/03/20 04:00 Bi-pap 100.0 Bi-pap Bi-pap 03/03/20 03:19 105 29 85 100 03/03/20 00:00 Bi-pap 100.0 Bi-pap Bi-pap 03/03/20 00:00 100 03/03/20 00:00 101 03/03/20 00:00 97.0 91 24 123/93 (103) 93 03/02/20 23:17 127/97 03/02/20 23:04 102 27 87 100 03/02/20 20:00 100 03/02/20 20:00 97.9 93 25 127/97 (107) 93 03/02/20 20:00 Bi-pap 100.0 Bi-pap Bi-pap 03/02/20 20:00 97 03/02/20 19:50 106 35 88 100 Height (Feet): 5 Height (Inches): 10.00 Weight (Pounds): 240 General Appearance: no acute distress HEENT: normocephalic, atraumatic, anicteric Respiratory/Chest: crackles/rales, rhonchi - bilaterally Cardiovascular: normal rate, regular rhythm, no gallop/murmur Abdomen: normal bowel sounds, soft, non tender, no organomegaly, non distended Genitourinary: other - no joseph Extremities: no cyanosis Skin: no rash Neurologic/Psychiatric: director of social services II-XII grossly normal, alert, oriented x 3 Lymphatic: no neck adenopathy Musculoskeletal: no effusion CT chest: IMPRESSION: There are mild subpleural ground-glass and consolidating infiltrates in the dependent portions of both lower lobes and to lesser degree the upper lobes consistent with bilateral pneumonia. The infiltrates are typical for Covid 19. No evidence of pulmonary embolus. CT abdomen and pelvis: IMPRESSION: 1. Scattered hepatic hypodense lesions, too small to characterize on this examination without intravenous contrast. 2. Colonic diverticulosis without evidence of acute diverticulitis. 3. Scattered enlarged mesenteric lymph nodes, presumably reactive. teral pneumonia. The infiltrates are typical for Covid 19. No evidence of pulmonary embolus. Chest x-ray - 12/19/19 - Indication: Shortness of breath Technique: One view of the chest Comparison: 02/17/2020 Findings: Interim worsening of bilateral infiltrates, particularly on the right. The heart is borderline enlarged. The pleural spaces are clear. Left arm PICC is again demonstrated Impression: Worsening bilateral infiltrates over one day, likely pneumonia CT chest - 02/19/20 - IMPRESSION: Increased extensive patchy ground-glass opacities and densities throughout the lungs, suggestive of Covid 19 infection. Chest x-ray 02/23/20 - Procedure: XRAY Chest 1v As Indication: Reason For Exam: INFECT Technique: One view of the chest Comparison: 02/20/2020 Findings: Allowing for differences in exposure technique, bilateral mid and lower lung infiltrates are probably unchanged. The heart size is normal. The pleural spaces are clear. Impression: Unchanged, over 4 days, findings as above. Chest x-ray - 02/25/20 - FINDINGS: Lungs: Interval slightly worsening bilateral airspace disease. Pleural space: Unremarkable. No pneumothorax. Heart: Unremarkable. No cardiomegaly. Mediastinum: Unremarkable. Bones/joints: Unremarkable. IMPRESSION: Interval slightly worsening bilateral airspace disease. Chest x-ray - 03/02/20 - Procedure: XRAY Chest 1v Indication: Shortness of breath Technique: One view of the chest Comparison: 02/25/2020 Findings: Bilateral interstitial and airspace infiltrates are unchanged. The heart size is normal. Left arm PICC is again demonstrated Impression: Unchanged, over one day, findings as above. Microbiology Date/Time Source Procedure Growth Status 02/24/20 13:27 Blood Blood Culture - Final NO GROWTH AFTER 5 DAYS Complete 02/17/20 19:00 Urine,Clean Catch Urine Culture - Final NO GROWTH AFTER 48 HOURS Complete 02/10/20 06:30 Nasopharynx SARS-CoV-2 RdRp Gene Assay - Final Complete Microbiology Date/Time Source Procedure Growth Status 02/24/20 13:27 Blood Blood Culture - Final NO GROWTH AFTER 5 DAYS Complete 02/17/20 19:00 Urine,Clean Catch Urine Culture - Final NO GROWTH AFTER 48 HOURS Complete 02/10/20 06:30 Nasopharynx SARS-CoV-2 RdRp Gene Assay - Final Complete Labs Test 03/01/20 22:40 03/02/20 04:30 Lactate Dehydrogenase 493 U/L (81-234) Vancomycin Level Trough 33.2 ug/mL (5.0-12.0) White Blood Count 16.6 K/UL (4.8-10.8) Red Blood Count 5.38 M/UL (4.70-6.10) Hemoglobin 15.4 G/DL (14.2-18.0) Hematocrit 49.7 % (42.0-52.0) Mean Corpuscular Volume 92 FL (80-99) Mean Corpuscular Hemoglobin 28.7 PG (27.0-31.0) Mean Corpuscular Hemoglobin Concent 31.1 G/DL (32.0-36.0) Red Cell Distribution Width 13.9 % (11.6-14.8) Platelet Count 339 K/UL (150-450) Mean Platelet Volume 6.9 FL (6.5-10.1) Neutrophils (%) (Auto) % (45.0-75.0) Lymphocytes (%) (Auto) % (20.0-45.0) Monocytes (%) (Auto) % (1.0-10.0) Eosinophils (%) (Auto) % (0.0-3.0) Basophils (%) (Auto) % (0.0-2.0) Differential Total Cells Counted 100 Neutrophils % (Manual) 95 % (45-75) Lymphocytes % (Manual) 3 % (20-45) Monocytes % (Manual) 2 % (1-10) Eosinophils % (Manual) 0 % (0-3) Basophils % (Manual) 0 % (0-2) Band Neutrophils 0 % (0-8) Platelet Estimate Adequate Platelet Morphology Normal Red Blood Cell Morphology Normal Sodium Level 152 MMOL/L (136-145) Potassium Level 3.4 MMOL/L (3.5-5.1) Chloride Level 116 MMOL/L (98-107) Carbon Dioxide Level 28 MMOL/L (21-32) Anion Gap 8 mmol/L (5-15) Blood Urea Nitrogen 43 mg/dL (7-18) Creatinine 1.2 MG/DL (0.55-1.30) Estimat Glomerular Filtration Rate > 60 mL/min (>60) Glucose Level 87 MG/DL (74-106) Calcium Level 7.8 MG/DL (8.5-10.1) Magnesium Level 2.0 MG/DL (1.8-2.4) Total Bilirubin 0.5 MG/DL (0.2-1.0) Aspartate Amino Transf (AST/SGOT) 47 U/L (15-37) Alanine Aminotransferase (ALT/SGPT) 27 U/L (12-78) Alkaline Phosphatase 124 U/L (46-116) C-Reactive Protein, Quantitative 8.0 mg/dL (0.00-0.90) Pro-B-Type Natriuretic Peptide 166 pg/mL (0-125) Total Protein 6.9 G/DL (6.4-8.2) Albumin 2.0 G/DL (3.4-5.0) Globulin 4.9 g/dL Albumin/Globulin Ratio 0.4 (1.0-2.7) Current Medications Medications (Trade) Dose Ordered Sig/Dennis Route PRN Reason Start Time Stop Time Status Last Admin Dose Admin Acetaminophen (Tylenol) 650 mg Q4H PRN ORAL Temp >100.5 02/05/20 13:15 03/06/20 13:14 02/27/20 21:22 Acetaminophen (Tylenol) 650 mg Q4H PRN ORAL Pain (1-3) 02/09/20 08:30 03/10/20 08:29 02/23/20 09:00 Amlodipine Besylate (Norvasc) 5 mg BID ORAL 02/10/20 09:00 03/11/20 08:59 03/03/20 08:35 Bisacodyl (Dulcolax) 10 mg HSPRN PRN RECTAL Constipation 02/05/20 13:15 05/05/20 13:14 Chlorhexidine Gluconate (Marlen-Hex 2%) 1 applic DAILY@2000 TOPIC 02/14/20 20:00 05/14/20 19:59 03/02/20 21:08 Dexamethasone Sodium Phosphate (Decadron 10mg/ ml Inj) 6 mg DAILY IV 02/27/20 09:00 03/08/20 08:59 03/03/20 08:35 Dextrose (Dextrose 50%) 25 ml Q30M PRN IV Hypoglycemia 02/05/20 13:15 05/05/20 13:14 Dextrose (Dextrose 50%) 50 ml Q30M PRN IV Hypoglycemia 02/05/20 13:15 05/05/20 13:14 Enoxaparin Sodium (Lovenox) 110 mg EVERY 12 HOURS SUBQ 02/28/20 21:00 05/19/20 20:59 03/03/20 08:35 Hydralazine HCl (Apresoline) 50 mg Q6HR ORAL 02/17/20 19:30 05/17/20 19:29 03/03/20 12:34 Ibuprofen (Motrin) 600 mg TIDPRN PRN ORAL Breakthrough Pain 02/17/20 19:30 03/18/20 19:29 02/21/20 20:56 Magnesium Hydroxide (Mom) 30 ml HSPRN PRN ORAL Constipation 02/05/20 13:15 03/06/20 13:14 Meropenem 1 gm/ Sodium Chloride 100 ml @ 200 mls/hr Q8HR IVPB 02/28/20 22:00 03/05/20 21:59 03/03/20 14:16 Micafungin Sodium 100 mg/Sodium Chloride 100 ml @ 100 mls/hr Q24H IVPB 03/02/20 14:00 03/09/20 13:59 03/03/20 14:16 Ondansetron HCl (Zofran) 4 mg Q6H PRN IVP Nausea & Vomiting 02/05/20 13:15 03/06/20 13:14 Pantoprazole (Protonix) 40 mg DAILY ORAL 02/06/20 09:00 03/07/20 08:59 03/03/20 08:35 Polyethylene Glycol (Miralax) 17 gm HSPRN PRN ORAL Constipation 02/05/20 13:15 03/06/20 13:14 Promethazine HCl/ Codeine (Phenergan with Codeine) 5 ml Q4H PRN ORAL For Cough 02/22/20 12:15 03/23/20 12:14 02/26/20 04:05 Trimethoprim/ Sulfamethoxazole (Bactrim-DS) 1 tab Q24HRS ORAL 03/03/20 20:00 03/10/20 19:59 Vancomycin HCl 300 ml @ 150 mls/hr Q12H IVPB 03/02/20 11:00 03/07/20 10:59 03/03/20 12:34 Vancomycin HCl (Vanco pharmacy to dose) 1 ea DAILY PRN MISC Per rx protocol 02/26/20 19:30 03/27/20 19:29 Kisha Salazar MD Mar 03, 2020 18:08
[2020-03-03 20:00] VITALS: BP 133/89
--- NOTE | 2020-03-03 20:06 | NUR ---
NURSE HAND-OFF REPORT: Important Events on Shift:NA Patient Status: O2 82%-87% Diet: Cardiac Diet Pending Orders: NA Pending Results/Labs:NA Pending MD notification:NA Latest Vital Signs: Temperature 97.0 , Pulse 98 , B/P 135 /89 , Respiratory Rate 28 , O2 SAT 86 , Room Air, O2 Flow Rate 100.0 . Vital Sign Comment: Stable EKG Rhythm: Sinus Rhythm Rhythm change?: N MD Notified?: Courtney Awan MD Response: Message left await call Latest Hassan Fall Score: 45 Fall Risk: High Risk Safety Measures: Call light Within Reach, Bed Alarm Zone 1, Side Rails Side Rails x2, Bed position Low and Locked. Fall Precautions: Patient Fall Education Report given to PRIYANKA Caban .
--- NOTE | 2020-03-03 20:10 | NUR ---
NURSE NOTES: Received patient from PRIYANKA Looney.Awake, on BiPAP 20/10 100% with no respiratory distress.o2 sat 91-93%.SR on monitor.VSS. Afebrile.Denies any pain at this time. call light in reach. bed locked and in lowest position, bed alarm on. will continue to plan of care.
--- NOTE | 2020-03-03 21:30 | NUR ---
NURSE NOTES: Report given to Radha Villegas RN. Patient remains stable in condition with BiPAP.
--- NOTE | 2020-03-03 21:31 | NUR ---
NURSE NOTES: Received patient from PRIYANKA Caban under the care of Dr. Mata for the admitting dx. of chest pain. patient noted with no allergies and full code status. Patient on isolation for Covid (+) status. Obsevred and maintained at all times. Patient is A+Ox4, verbally responsive and able to make needs know with clear speech. Noted SR on the monitoring engineer. Denies any pain or discomfort at this time. Will continue to monitor.
[2020-03-03] MEDS: Bactrim-DS 1 tab ORAL SCH (21:44)
[2020-03-03] MEDS: Dyna-Hex 2% Top Sol 2oz TOPIC SCH (21:44)
[2020-03-04] VITALS: BP 133/85
--- NOTE | 2020-03-04 | NUR ---
NURSE NOTES: Patient asleep but easy to arouse. Denies pain or discomfort at this time. Will continue to monitor.
--- NOTE | 2020-03-04 03:00 | NUR ---
NURSE NOTES: Patient awake and able to tolerate bed mobility and turning well. Denies pain at this time. Will continue to monitor.
[2020-03-04 04:00] VITALS: BP 133/90
[2020-03-04] MEDS: HydrALAZINE 50mg tab ORAL SCH ×2 (05:39→11:56)
--- NOTE | 2020-03-04 06:00 | NUR ---
NURSE NOTES: Patient asleep. No distress noted at this time. Will continue to monitor.
[2020-03-04 06:29] LABS: HEMOGLOBIN 15.7 G/DL (14.2-18.0); MEAN CORPUSCULAR VOLUME 91 FL (80-99); PLATELET COUNT 398 K/UL (150-450); RED BLOOD COUNT 5.48 M/UL (4.70-6.10); RED CELL DISTRIBUTION WIDTH 13.9 % (11.6-14.8); WHITE BLOOD COUNT 17.9 K/UL (4.8-10.8)
[2020-03-04 06:42] LABS: ALBUMIN 2.1 G/DL (3.4-5.0); ALBUMIN/GLOBULIN RATIO 0.4 (1.0-2.7); BILIRUBIN,TOTAL 0.7 MG/DL (0.2-1.0); CALCIUM 8.9 MG/DL (8.5-10.1); CREATININE 1.3 MG/DL (0.55-1.30); POTASSIUM 3.3 MMOL/L (3.5-5.1)
--- NOTE | 2020-03-04 07:15 | NUR ---
NURSE HAND-OFF REPORT: Important Events on Shift:- Patient Status: Stable Diet: Pending Orders: Pending Results/Labs: Pending MD notification: Latest Vital Signs: Temperature 97.5 , Pulse 90 , B/P 133 /85 , Respiratory Rate 28 , O2 SAT 90 , Room Air, O2 Flow Rate 100.0 . Vital Sign Comment: WNL EKG Rhythm: Sinus Rhythm Rhythm change?: N MD Notified?: Y -Dr. Emperatriz INTERIANO Response: Message left await call Latest Hassan Fall Score: 45 Fall Risk: High Risk Safety Measures: Call light Within Reach, Bed Alarm Zone 1, Side Rails Side Rails x2, Bed position Low and Locked. Fall Precautions: Patient Fall Education Report given to PRIYANKA Ureña.
[2020-03-04 08:00] VITALS: BP 129/86
--- NOTE | 2020-03-04 09:22 | NUR ---
CASE MANAGEMENT: REVIEW 03/04/2020 SI:SEPSIS. COVID (+) VS: T 98.8 HR 90 RR 22 B/P 129/86 SATS 88% ON BIPAP FIO2 100 LABS: WBC 17.9 NA 152 K 3.3 CL 115 BUN 44 ALP 126 IS:NORVASC PO BID PROTONIX PO QD DECADRON IV QD VANCO IV Q12H MICAFUNGIN IV Q24H HYDRALAZINE PO Q6H MEROPENEM IV Q8H SDU
[2020-03-04] MEDS ORDERED: NS 275ml ONE (09:52)
[2020-03-04] MEDS ORDERED: Tubing IV Secondary IV ONE (09:52)
[2020-03-04] MEDS: dexAMETHasone 10mg/ml Inj IV SCH (10:14)
[2020-03-04] MEDS: Enoxaparin 120 mg inj SUBQ SCH ×2 (10:15→20:55)
--- NOTE | 2020-03-04 10:30 | NUR ---
NURSE NOTES: Patient awake and able to tolerate and help with bed mobility and turning. No pain at this time noted. Will continue to monitor.
--- NOTE | 2020-03-04 10:34 | Pulmonology Progress Note ---
Subjective ROS Limited/Unobtainable: No Interval Events: tolerating BiPAP Constitutional: Reports: fatigue, other - still on bipap; Denies: fever HEENT: Repors: no symptoms Respiratory: Reports: dry cough, shortness of breath Cardiovascular: Denies: no symptoms, chest pain, palpitations, other Gastrointestinal/Abdominal: Denies: nausea, vomiting Psychiatric: Reports: other - NA Skin: Denies: rash Musculoskeletal: Reports: other - NA Allergies: Coded Allergies: No Known Allergies (Unverified , 02/05/20) Objective Last 24 Hour Vital Signs Date Time Temp Pulse Resp B/P (MAP) Pulse Ox O2 Delivery O2 Flow Rate FiO2 03/04/20 10:14 94 129/86 03/04/20 08:00 Bi-pap 100.0 Bi-pap Bi-pap 03/04/20 08:00 98.8 90 22 129/86 (100) 88 03/04/20 08:00 94 03/04/20 08:00 100 03/04/20 05:39 133/85 03/04/20 04:00 100 03/04/20 04:00 Bi-pap 100.0 Bi-pap Bi-pap 03/04/20 04:00 93 03/04/20 04:00 97.5 90 28 133/90 (104) 90 03/04/20 00:40 95 20 88 100 03/04/20 00:00 102 03/04/20 00:00 100 03/04/20 00:00 98.6 92 19 133/85 (101) 88 03/04/20 00:00 Bi-pap 100.0 Bi-pap Bi-pap 03/03/20 23:54 133/89 03/03/20 20:00 Bi-pap 100.0 Bi-pap Bi-pap 03/03/20 20:00 100 03/03/20 20:00 98.8 92 18 133/89 (104) 91 03/03/20 19:23 94 03/03/20 19:13 98 28 86 100 03/03/20 17:56 135/89 03/03/20 17:56 100 135/89 03/03/20 16:00 100 03/03/20 16:00 97.0 110 20 135/89 (104) 85 03/03/20 16:00 Bi-pap 100.0 Bi-pap Bi-pap 03/03/20 16:00 100 03/03/20 14:46 110 31 86 100 03/03/20 12:34 125/90 03/03/20 12:00 100 03/03/20 12:00 101 03/03/20 12:00 98.1 91 19 125/90 (102) 82 03/03/20 12:00 Bi-pap 100.0 Bi-pap Bi-pap 03/03/20 11:36 107 28 85 100 Intake and Output 03/03/20 03/04/20 19:00 07:00 Intake Total 940 ml 440 ml Output Total 650 ml Balance 290 ml 440 ml Intake Oral 440 ml 440 ml IV Total 500 ml Output Urine Total 650 ml # Voids 4 3 Objective 03/04 now saturating at 89-90% on BiPAP 03/03 saturating in the low 80s on BiPAP 02/28 saturating 93% on BiPAP 02/23 saturating 94% on BiPAP 02/22 tolerating BiPAP, saturating at 90% 02/21 now on BiPAP, saturating at 95% 02/18 still on 15L NRB mask saturating 88-93% 02/17 now on 15L NRB mask saturating at 91% 02/17/2020 now on 2 lpm NC 02/16/2020 no change 02/15/2020 no major change 02/14/2020 saturating well on RAD; NAD 02/13/2020 pt asleep; saturating well on RA 02/12/2020 sitting up in a chair; saturating well on RA 02/11/2020 back on isolation due to COVID-19 positive status again; currently being worked up for positive blood culture 02/09/2020 off isolation; saturating well on RA 02/08/2020 feeling better; COVID-19 PCR neg 02/07/2020 reports feeling better; COVID-19 PCR pending 02/06/2020 pt laying in bed; reports feeling better General Appearance: WD/WN, no acute distress HEENT: normocephalic, atraumatic Respiratory: chest wall non-tender Cardiovascular: normal rate, regular rhythm Abdomen: normal bowel sounds, soft, non tender, other - obese Laboratory Tests 03/03/20 23:00: Vancomycin Level Trough 28.8H 03/04/20 05:00: White Blood Count 17.9H, Red Blood Count 5.48, Hemoglobin 15.7, Hematocrit 50.0, Mean Corpuscular Volume 91, Mean Corpuscular Hemoglobin 28.7, Mean Corpuscular Hemoglobin Concent 31.5L, Red Cell Distribution Width 13.9, Platelet Count 398, Mean Platelet Volume 7.4, Neutrophils (%) (Auto) , Lymphocytes (%) (Auto) , Monocytes (%) (Auto) , Eosinophils (%) (Auto) , Basophils (%) (Auto) , Differential Total Cells Counted 100, Neutrophils % (Manual) 95H, Lymphocytes % (Manual) 3L, Monocytes % (Manual) 1, Eosinophils % (Manual) 1, Basophils % (Ma nual) 0, Band Neutrophils 0, Platelet Estimate Adequate, Platelet Morphology Normal, Red Blood Cell Morphology Normal, Sodium Level 152H, Potassium Level 3.3L, Chloride Level 115H, Carbon Dioxide Level 29, Anion Gap 8, Blood Urea Nitrogen 44H, Creatinine 1.3, Estimat Glomerular Filtration Rate 55.9, Glucose Level 105, Calcium Level 8.9, Total Bilirubin 0.7, Aspartate Amino Transf (AST/SGOT) 33, Alanine Aminotransferase (ALT/SGPT) 27, Alkaline Phosphatase 126H , Total Protein 7.2, Albumin 2.1L, Globulin 5.1, Albumin/Globulin Ratio 0.4L Current Medications Medications (Trade) Dose Ordered Sig/Dennis Route PRN Reason Start Time Stop Time Status Last Admin Dose Admin Acetaminophen (Tylenol) 650 mg Q4H PRN ORAL Temp >100.5 02/05/20 13:15 03/06/20 13:14 02/27/20 21:22 Acetaminophen (Tylenol) 650 mg Q4H PRN ORAL Pain (1-3) 02/09/20 08:30 03/10/20 08:29 02/23/20 09:00 Amlodipine Besylate (Norvasc) 5 mg BID ORAL 02/10/20 09:00 03/11/20 08:59 03/04/20 10:14 Bisacodyl (Dulcolax) 10 mg HSPRN PRN RECTAL Constipation 02/05/20 13:15 05/05/20 13:14 Chlorhexidine Gluconate (Marlen-Hex 2%) 1 applic DAILY@2000 TOPIC 02/14/20 20:00 05/14/20 19:59 03/03/20 21:44 Dexamethasone Sodium Phosphate (Decadron 10mg/ ml Inj) 6 mg DAILY IV 02/27/20 09:00 03/08/20 08:59 03/04/20 10:14 Dextrose (Dextrose 50%) 25 ml Q30M PRN IV Hypoglycemia 02/05/20 13:15 05/05/20 13:14 Dextrose (Dextrose 50%) 50 ml Q30M PRN IV Hypoglycemia 02/05/20 13:15 05/05/20 13:14 Enoxaparin Sodium (Lovenox) 110 mg EVERY 12 HOURS SUBQ 02/28/20 21:00 05/19/20 20:59 03/04/20 10:15 Hydralazine HCl (Apresoline) 50 mg Q6HR ORAL 02/17/20 19:30 05/17/20 19:29 03/04/20 05:39 Ibuprofen (Motrin) 600 mg TIDPRN PRN ORAL Breakthrough Pain 02/17/20 19:30 03/18/20 19:29 02/21/20 20:56 Magnesium Hydroxide (Mom) 30 ml HSPRN PRN ORAL Constipation 02/05/20 13:15 03/06/20 13:14 Meropenem 1 gm/ Sodium Chloride 100 ml @ 200 mls/hr Q8HR IVPB 02/28/20 22:00 03/05/20 21:59 03/04/20 05:39 Micafungin Sodium 100 mg/Sodium Chloride 100 ml @ 100 mls/hr Q24H IVPB 03/02/20 14:00 03/09/20 13:59 03/03/20 14:16 Ondansetron HCl (Zofran) 4 mg Q6H PRN IVP Nausea & Vomiting 02/05/20 13:15 03/06/20 13:14 Pantoprazole (Protonix) 40 mg DAILY ORAL 02/06/20 09:00 03/07/20 08:59 03/04/20 10:14 Polyethylene Glycol (Miralax) 17 gm HSPRN PRN ORAL Constipation 02/05/20 13:15 03/06/20 13:14 Promethazine HCl/ Codeine (Phenergan with Codeine) 5 ml Q4H PRN ORAL For Cough 02/22/20 12:15 03/23/20 12:14 02/26/20 04:05 Trimethoprim/ Sulfamethoxazole (Bactrim-DS) 1 tab Q24HRS ORAL 03/03/20 20:00 03/10/20 19:59 03/03/20 21:44 Vancomycin HCl (Vanco pharmacy to dose) 1 ea DAILY PRN MISC Per rx protocol 02/26/20 19:30 03/27/20 19:29 Assessment/Plan Assessment/Plan 1.COVID-19 pneumonia. - last COVID-19 test positive after two negative tests - CTA 02/05/2020 ground-glass and consolidating infiltrates in the dependent portions of both lower lobes and to lesser degree the upper lobes consistent with bilateral pneumonia. No evidence of pulmonary embolus. - CXR 02/17/2020 worsening bilateral infiltrates; on broad spectrum abx per ID - CT chest 02/18 shows Increased extensive patchy ground-glass opacities and densities throughout the lungs, suggestive of Covid 19 infection. - currently on BiPAP. Saturations 90%. - Mycoplasma pneumoniae IgG 273; M. pneumoniae IgM titer within normal limits - D-dimer 0.90; on full dose Lovenox - on decadron per ID due to worsening hypoxia - s/p remdesivir - now off Lasix per Dr. Awan due to elevated Na - is now net I/O negative 2. Initial negative rapid COVID-19 gene assay.- however repeat COVID-19 test positive 3. Smoker. 4. DVT ppx - on lovenox 5. Hypertension - on hydralazine, and norvasc - On cardiac diet 6. Blood culture positive for gram positive cocci staph aureus - on Abx - CT abd/pelvis showed no abscess per ID - TTE/ FERNY held off due to COVID-19 status - PICC line in place 7. low appetite 8. Leukocytosis - Consider weaning steroids per ID - Started bactrim prophylaxis per ID - UA ordered per ID HIV antibody 1&2 neg We will follow carefully The care for this patient was discussed with my supervising physician Time spent for this case was approximately 31 minutes Edilson Marinelli Mar 04, 2020 10:34
[2020-03-04 11:46] LABS: APPEARANCE,URINE SLIGHTLY CLOUDY; BILIRUBIN, URINE NEGATIVE (NEGATIVE); GLUCOSE, URINE (UA) NEGATIVE (NEGATIVE); KETONES,URINE 1+ (NEGATIVE); LEUKOCYTE ESTERASE ,URINE NEGATIVE (NEGATIVE); NITRITE,URINE NEGATIVE (NEGATIVE); PH,URINE 5 (4.5-8.0); PROTEIN,URINE 2+ (NEGATIVE); UROBILINOGEN,URINE NORMAL MG/DL (0.0-1.0)
[2020-03-04 11:48] LABS: COLOR,URINE YELLOW
[2020-03-04 12:00] VITALS: BP 135/89
--- NOTE | 2020-03-04 15:30 | NUR ---
NURSE NOTES: Oral care and bed linens changed along with full bed bath given. Optifoam replaced on sacral wound. Pt tolerated but did desaturate to 79% and bipap placed back on and saturation returned back to high 80's.
--- NOTE | 2020-03-04 15:47 | Cardiology Progress Note ---
Assessment/Plan Problem List: (1) Hypertension (2) COVID-19 virus infection (3) Staphylococcus aureus bacteremia (4) Chest pain (5) Pneumonia Status: not improved, deteriorating Status Narrative Respiratory status remains tenuous, on bipap mask and receiving iv steroids as well as antibiotics for bilateral pneumonia. COVID + . Also staph aureus ( MSSA) bacteremia 02/06 - treated. He is tachycardic, likely due to infection, but also possible contribution of hydralazine causing reflex tachycardia. Assessment/Plan Continue current treatment w/ iv abx for pneumonia and staph bacteremia. Iv steroids, bipap vent and further management of respiratory failure, COVID 19 infection, per pulmonary. Remain off lasix, as pt w/ prerenal azotemia, hypernatremia . Hold hydralazine.Continue amlodipine for HTN and start b taniya Subjective ROS Limited/Unobtainable: No Subjective Cardiology for Dr. Awan Mr Horta is on bipap vent, w/ o2 sats upper 80s at times alert, in mild distress. Objective Last 24 Hour Vital Signs Date Time Temp Pulse Resp B/P (MAP) Pulse Ox O2 Delivery O2 Flow Rate FiO2 03/04/20 12:00 105 03/04/20 12:00 98.8 98 24 135/89 (104) 88 03/04/20 12:00 Bi-pap 100.0 Bi-pap Bi-pap 03/04/20 12:00 100 03/04/20 11:56 129/74 03/04/20 10:14 94 129/86 03/04/20 08:00 Bi-pap 100.0 Bi-pap Bi-pap 03/04/20 08:00 98.8 90 22 129/86 (100) 88 03/04/20 08:00 94 03/04/20 08:00 100 03/04/20 05:39 133/85 03/04/20 04:00 100 03/04/20 04:00 Bi-pap 100.0 Bi-pap Bi-pap 03/04/20 04:00 93 03/04/20 04:00 97.5 90 28 133/90 (104) 90 03/04/20 00:40 95 20 88 100 03/04/20 00:00 102 03/04/20 00:00 100 03/04/20 00:00 98.6 92 19 133/85 (101) 88 03/04/20 00:00 Bi-pap 100.0 Bi-pap Bi-pap 03/03/20 23:54 133/89 03/03/20 20:00 Bi-pap 100.0 Bi-pap Bi-pap 03/03/20 20:00 100 03/03/20 20:00 98.8 92 18 133/89 (104) 91 03/03/20 19:23 94 03/03/20 19:13 98 28 86 100 03/03/20 17:56 135/89 03/03/20 17:56 100 135/89 03/03/20 16:00 100 03/03/20 16:00 97.0 110 20 135/89 (104) 85 03/03/20 16:00 Bi-pap 100.0 Bi-pap Bi-pap 03/03/20 16:00 100 General Appearance: WD/WN, mild distress, other - bipap vent EENT: PERRL/EOMI Neck: supple, no JVD Rhythm: ST Cardiovascular: regular rhythm, no gallop/murmur, tachycardia Respiratory/Chest: other - coarse BS bilat Abdomen: non tender, soft Extremities: non-tender, no swelling Intake and Output 03/03/20 03/04/20 19:00 07:00 Intake Total 940 ml 440 ml Output Total 650 ml Balance 290 ml 440 ml Intake Oral 440 ml 440 ml IV Total 500 ml Output Urine Total 650 ml # Voids 4 3 Laboratory Tests Test 03/03/20 23:00 03/04/20 05:00 03/04/20 09:00 03/04/20 11:00 Vancomycin Level Trough 28.8 ug/mL (5.0-12.0) H 27.5 ug/mL (5.0-12.0) H White Blood Count 17.9 K/UL (4.8-10.8) H Red Blood Count 5.48 M/UL (4.70-6.10) Hemoglobin 15.7 G/DL (14.2-18.0) Hematocrit 50.0 % (42.0-52.0) Mean Corpuscular Volume 91 FL (80-99) Mean Corpuscular Hemoglobin 28.7 PG (27.0-31.0) Mean Corpuscular Hemoglobin Concent 31.5 G/DL (32.0-36.0) L Red Cell Distribution Width 13.9 % (11.6-14.8) Platelet Count 398 K/UL (150-450) Mean Platelet Volume 7.4 FL (6.5-10.1) Neutrophils (%) (Auto) % (45.0-75.0) Lymphocytes (%) (Auto) % (20.0-45.0) Monocytes (%) (Auto) % (1.0-10.0) Eosinophils (%) (Auto) % (0.0-3.0) Basophils (%) (Auto) % (0.0-2.0) Differential Total Cells Counted 100 Neutrophils % (Manual) 95 % (45-75) H Lymphocytes % (Manual) 3 % (20-45) L Monocytes % (Manual) 1 % (1-10) Eosinophils % (Manual) 1 % (0-3) Basophils % (Manual) 0 % (0-2) Band Neutrophils 0 % (0-8) Platelet Estimate Adequate Platelet Morphology Normal Red Blood Cell Morphology Normal Sodium Level 152 MMOL/L (136-145) H Potassium Level 3.3 MMOL/L (3.5-5.1) L Chloride Level 115 MMOL/L (98-107) H Carbon Dioxide Level 29 MMOL/L (21-32) Anion Gap 8 mmol/L (5-15) Blood Urea Nitrogen 44 mg/dL (7-18) H Creatinine 1.3 MG/DL (0.55-1.30) Estimat Glomerular Filtration Rate 55.9 mL/min (>60) Glucose Level 105 MG/DL (74-106) Calcium Level 8.9 MG/DL (8.5-10.1) Total Bilirubin 0.7 MG/DL (0.2-1.0) Aspartate Amino Transf (AST/SGOT) 33 U/L (15-37) Alanine Aminotransferase (ALT/SGPT) 27 U/L (12-78) Alkaline Phosphatase 126 U/L (46-116) H Total Protein 7.2 G/DL (6.4-8.2) Albumin 2.1 G/DL (3.4-5.0) L Globulin 5.1 g/dL Albumin/Globulin Ratio 0.4 (1.0-2.7) L Urine Color Yellow Urine Appearance Slightly cloudy Urine pH 5 (4.5-8.0) Urine Specific [place] 1.020 (1.005-1.035) Urine Protein 2+ (NEGATIVE) H Urine Glucose (UA) Negative (NEGATIVE) Urine Ketones 1+ (NEGATIVE) H Urine Blood 4+ (NEGATIVE) H Urine Nitrite Negative (NEGATIVE) Urine Bilirubin Negative (NEGATIVE) Urine Urobilinogen Normal MG/DL (0.0-1.0) Urine Leukocyte Esterase Negative (NEGATIVE) Urine RBC 0-2 /HPF (0 - 0) H Urine WBC 0-2 /HPF (0 - 0) Urine Squamous Epithelial Cells Occasional /LPF Urine Uric Acid Crystals Few /LPF (NONE) H Urine Amorphous Sediment Few /LPF (NONE) H Urine Bacteria Occasional /HPF (NONE) Lily Rene MD Mar 04, 2020 15:47
[2020-03-04 16:00] VITALS: BP 139/97
--- NOTE | 2020-03-04 16:30 | NUR ---
NURSE NOTES: Pt asked nurse to take his debit card down to his girlfriend for him. Nurse acknowledged and took debit card down to girlfriend.
--- NOTE | 2020-03-04 19:45 | NUR ---
NURSE NOTES: Received pt and report from PRIYANKA Ureña. Observed pt resting in bed with both eyes open and watching television. Pt is A/Ox4. quality assurance monitor body is in placed; pt is NSR. Pt has a double lumen PICC line in placed; intact, asymptomatic, and patent. Pt is on continuous BiPAP 20/5, FiO2 100%; sating at 89%. Bed is in the lowest position and locked. Call light and bed side table is within reach. Will continue plan of care.
--- NOTE | 2020-03-04 19:49 | NUR ---
NURSE HAND-OFF REPORT: Important Events on Shift: Tolerating bipap Patient Status: Stable Diet: Cardiac Pending Orders: Pending Results/Labs: Pending MD notification: Latest Vital Signs: Temperature 97.5 , Pulse 75 , B/P 139 /97 , Respiratory Rate 19 , O2 SAT 89 , Room Air, O2 Flow Rate 100.0 . Vital Sign Comment: EKG Rhythm: Sinus Rhythm Rhythm change?: N MD Notified?: N -Dr. Emperatriz INTERIANO Response: Message left await call Latest Hassan Fall Score: 45 Fall Risk: High Risk Safety Measures: Call light Within Reach, Bed Alarm Zone 1, Side Rails Side Rails x2, Bed position Low and Locked. Fall Precautions: Patient Fall Education Report given to Divina.
[2020-03-04 20:00] VITALS: BP 127/87
[2020-03-04] MEDS: Bactrim-DS 1 tab ORAL SCH (20:54)
[2020-03-04] MEDS: Dyna-Hex 2% Top Sol 2oz TOPIC SCH (20:54)
[2020-03-05] VITALS: BP 132/94
--- NOTE | 2020-03-05 01:39 | NUR ---
NURSE NOTES: Observed pt resting in bed. Pt is calm. No signs/symptoms of acute distress noted. Will continue plan of care.
[2020-03-05 04:00] VITALS: BP 143/92
--- NOTE | 2020-03-05 06:55 | NUR ---
RESPIRATORY NOTE: PT RECEIVED ON BIPAP 20/10 RR:14 100%. ALARMS ARE ON AND AUDIBLE. RR IS 29 BUT NORMAL RESPIRATORY EFFORT IS NOTED. CURRENT SPO2 IS 87% EVEN AFTER ADJUSTING BIPAP MASK AND PULSE OX PROBE. AFSOON RN NOTIFIED. WILL CONTINUE TO MONITOR.
--- NOTE | 2020-03-05 07:30 | NUR ---
NURSE NOTES: Received pt from PRIYANKA Murcia, pt is awake and alert, pt has bipap 20/5 fio2 100%, pt is on continues heart monitoring, pt has intact iv access PICC [facility]. No complain of pain at this moment. all needs attended, bed is locked and is in the lowest position, call light within easy reach. will continue to monitor. Addendum: 03/05/20 at 0824 by Zenaida Murillo RN Error bipap setting is 20/10 [id number]
--- NOTE | 2020-03-05 07:46 | NUR ---
NURSE HAND-OFF REPORT: Important Events on Shift: Pt continues to be on BiPAP 20/5, FiO2 100%; sating between 86-91%. Patient Status: On-going Diet: Cardiac diet Pending Orders: N Pending Results/Labs: AM Labs Pending MD notification: N Latest Vital Signs: Temperature 98.0 , Pulse 93 , B/P 143 /92 , Respiratory Rate 26 , O2 SAT 90 , Room Air, O2 Flow Rate 100.0 . EKG Rhythm: Sinus Rhythm Rhythm change?: N Latest Hassan Fall Score: 45 Fall Risk: High Risk Safety Measures: Call light Within Reach, Bed Alarm Zone 1, Side Rails Side Rails x2, Bed position Low and Locked. Fall Precautions: Yellow Socks Patient Fall Education Report given to PRIYANKA Estevez.
[2020-03-05 08:00] VITALS: BP 135/89
[2020-03-05] MEDS ORDERED: Vancomycin 1750mg/D5W 550ml IVPB ONE ×2 (08:00)
[2020-03-05] MEDS: dexAMETHasone 10mg/ml Inj IV SCH (08:54)
[2020-03-05] MEDS: Enoxaparin 120 mg inj SUBQ SCH (09:01)
[2020-03-05 12:00] VITALS: BP 129/93
--- NOTE | 2020-03-05 12:40 | Pulmonology Progress Note ---
Subjective ROS Limited/Unobtainable: No Interval Events: tolerating BiPAP Constitutional: Reports: fatigue, other - still on bipap; Denies: fever HEENT: Repors: no symptoms Respiratory: Reports: dry cough, shortness of breath Cardiovascular: Denies: no symptoms, chest pain, palpitations, other Gastrointestinal/Abdominal: Denies: nausea, vomiting Psychiatric: Reports: other - NA Skin: Denies: rash Musculoskeletal: Reports: other - NA Allergies: Coded Allergies: No Known Allergies (Unverified , 02/05/20) Objective Last 24 Hour Vital Signs Date Time Temp Pulse Resp B/P (MAP) Pulse Ox O2 Delivery O2 Flow Rate FiO2 03/05/20 08:53 91 135/89 03/05/20 08:00 97.5 91 28 135/89 (104) 88 03/05/20 08:00 100 03/05/20 07:47 87 03/05/20 04:00 Bi-pap 100.0 Bi-pap Bi-pap 03/05/20 04:00 80 03/05/20 04:00 98.0 93 26 143/92 (109) 90 03/05/20 04:00 100 03/05/20 01:25 82 26 84 100 03/05/20 00:00 Bi-pap 100.0 Bi-pap Bi-pap 03/05/20 00:00 100 03/05/20 00:00 86 03/05/20 00:00 98.0 93 22 132/94 (107) 90 03/04/20 20:00 86 03/04/20 20:00 97.7 91 24 127/87 (100) 87 03/04/20 20:00 Bi-pap 100.0 Bi-pap Bi-pap 03/04/20 20:00 100 03/04/20 18:52 75 19 89 100 03/04/20 17:20 93 139/97 03/04/20 16:00 93 03/04/20 16:00 97.5 90 28 139/97 (111) 90 03/04/20 16:00 100 03/04/20 16:00 Bi-pap 100.0 Bi-pap Bi-pap 03/04/20 15:40 99 31 89 100 Intake and Output 03/04/20 03/05/20 19:00 07:00 Intake Total 560 ml 600 ml Output Total 850 ml Balance -290 ml 600 ml Intake Oral 560 ml 600 ml Output Urine Total 850 ml # Voids 3 2 Objective 03/05 saturating 77-88% on BiPAP 03/04 now saturating at 89-90% on BiPAP 03/03 saturating in the low 80s on BiPAP 02/28 saturating 93% on BiPAP 02/23 saturating 94% on BiPAP 02/22 tolerating BiPAP, saturating at 90% 02/21 now on BiPAP, saturating at 95% 02/18 still on 15L NRB mask saturating 88-93% 02/17 now on 15L NRB mask saturating at 91% 02/17/2020 now on 2 lpm NC 02/16/2020 no change 02/15/2020 no major change 02/14/2020 saturating well on RAD; NAD 02/13/2020 pt asleep; saturating well on RA 02/12/2020 sitting up in a chair; saturating well on RA 02/11/2020 back on isolation due to COVID-19 positive status again; currently being worked up for positive blood culture 02/09/2020 off isolation; saturating well on RA 02/08/2020 feeling better; COVID-19 PCR neg 02/07/2020 reports feeling better; COVID-19 PCR pending 02/06/2020 pt laying in bed; reports feeling better General Appearance: WD/WN, no acute distress HEENT: normocephalic, atraumatic Respiratory: chest wall non-tender Cardiovascular: normal rate, regular rhythm Abdomen: normal bowel sounds, soft, non tender, other - obese Microbiology Date/Time Source Procedure Growth Status 03/03/20 23:00 Blood Blood Culture - Preliminary NO GROWTH AFTER 24 HOURS Resulted 03/03/20 23:00 Blood Blood Culture - Preliminary NO GROWTH AFTER 24 HOURS Resulted Laboratory Tests 03/05/20 04:03: Random Vancomycin Level 14.3 Current Medications Medications (Trade) Dose Ordered Sig/Dennis Route PRN Reason Start Time Stop Time Status Last Admin Dose Admin Acetaminophen (Tylenol) 650 mg Q4H PRN ORAL Temp >100.5 02/05/20 13:15 03/06/20 13:14 02/27/20 21:22 Acetaminophen (Tylenol) 650 mg Q4H PRN ORAL Pain (1-3) 02/09/20 08:30 03/10/20 08:29 02/23/20 09:00 Amlodipine Besylate (Norvasc) 5 mg BID ORAL 02/10/20 09:00 03/11/20 08:59 03/05/20 08:53 Bisacodyl (Dulcolax) 10 mg HSPRN PRN RECTAL Constipation 02/05/20 13:15 05/05/20 13:14 Chlorhexidine Gluconate (Marlen-Hex 2%) 1 applic DAILY@2000 TOPIC 02/14/20 20:00 05/14/20 19:59 03/04/20 20:54 Dexamethasone Sodium Phosphate (Decadron 10mg/ ml Inj) 6 mg DAILY IV 02/27/20 09:00 03/08/20 08:59 03/05/20 08:54 Dextrose (Dextrose 50%) 25 ml Q30M PRN IV Hypoglycemia 02/05/20 13:15 05/05/20 13:14 Dextrose (Dextrose 50%) 50 ml Q30M PRN IV Hypoglycemia 02/05/20 13:15 05/05/20 13:14 Enoxaparin Sodium (Lovenox) 110 mg EVERY 12 HOURS SUBQ 02/28/20 21:00 05/19/20 20:59 03/05/20 09:01 Ibuprofen (Motrin) 600 mg TIDPRN PRN ORAL Breakthrough Pain 02/17/20 19:30 03/18/20 19:29 02/21/20 20:56 Magnesium Hydroxide (Mom) 30 ml HSPRN PRN ORAL Constipation 02/05/20 13:15 03/06/20 13:14 Meropenem 1 gm/ Sodium Chloride 100 ml @ 200 mls/hr Q8HR IVPB 02/28/20 22:00 03/05/20 21:59 03/05/20 05:54 Micafungin Sodium 100 mg/Sodium Chloride 100 ml @ 100 mls/hr Q24H IVPB 03/02/20 14:00 03/09/20 13:59 03/04/20 15:16 Ondansetron HCl (Zofran) 4 mg Q6H PRN IVP Nausea & Vomiting 02/05/20 13:15 03/06/20 13:14 Pantoprazole (Protonix) 40 mg DAILY ORAL 02/06/20 09:00 03/07/20 08:59 03/05/20 08:53 Polyethylene Glycol (Miralax) 17 gm HSPRN PRN ORAL Constipation 02/05/20 13:15 03/06/20 13:14 Promethazine HCl/ Codeine (Phenergan with Codeine) 5 ml Q4H PRN ORAL For Cough 02/22/20 12:15 03/23/20 12:14 02/26/20 04:05 Trimethoprim/ Sulfamethoxazole (Bactrim-DS) 1 tab Q24HRS ORAL 03/03/20 20:00 03/10/20 19:59 03/04/20 20:54 Vancomycin HCl (Vanco pharmacy to dose) 1 ea DAILY PRN MISC Per rx protocol 02/26/20 19:30 03/27/20 19:29 Vancomycin HCl 1 gm/Dextrose 275 ml @ 183.708 mls/hr Q12H IVPB 03/06/20 06:00 03/11/20 05:59 Assessment/Plan Assessment/Plan 1.COVID-19 pneumonia. - last COVID-19 test positive after two negative tests - CTA 02/05/2020 ground-glass and consolidating infiltrates in the dependent portions of both lower lobes and to lesser degree the upper lobes consistent with bilateral pneumonia. No evidence of pulmonary embolus. - CXR 02/17/2020 worsening bilateral infiltrates; on broad spectrum abx per ID - CT chest 02/18 shows Increased extensive patchy ground-glass opacities and densities throughout the lungs, suggestive of Covid 19 infection. - currently on BiPAP. Saturations 90%. - Mycoplasma pneumoniae IgG 273; M. pneumoniae IgM titer within normal limits - D-dimer 0.90; on full dose Lovenox - on decadron per ID due to worsening hypoxia - s/p remdesivir - now off Lasix per Dr. Awan due to elevated Na - is now net I/O negative 2. Initial negative rapid COVID-19 gene assay.- however repeat COVID-19 test positive 3. Smoker. 4. DVT ppx - on lovenox 5. Hypertension - on Norvasc 6. Blood culture positive for gram positive cocci staph aureus - on Abx - CT abd/pelvis showed no abscess per ID 7. low appetite 8. Leukocytosis - Consider weaning steroids per ID - Started bactrim prophylaxis per ID HIV antibody 1&2 neg We will follow carefully The care for this patient was discussed with my supervising physician Time spent for this case was approximately 31 minutes Edilson Marinelli Mar 05, 2020 12:40
--- NOTE | 2020-03-05 13:00 | NUR ---
RESPIRATORY NOTE: ABG DRAWN ON BIPAP 20/12 RR:14 100%. UNABLE TO ANALYZE PO2 AT THIS TIME. RN AWARE. ABG SATURATION IS 85.3 AND SPO2 IS @ 89%.
--- NOTE | 2020-03-05 14:12 | Cardiology Progress Note ---
Assessment/Plan Problem List: (1) Hypertension (2) COVID-19 virus infection (3) Staphylococcus aureus bacteremia (4) Chest pain (5) Pneumonia Status: not improved, unchanged Status Narrative Respiratory status remains tenuous, on bipap mask and receiving iv steroids as well as antibiotics for bilateral pneumonia. Pt COVID +, and had MSSA bacteremia ( 02/06) as well - treated. WBC elevated - ? new source of infection. Tachycardia improved, off hydralazine. Hypokalemic Assessment/Plan Continue current treatment w/ iv abx for pneumonia and staph bacteremia. Iv steroids, bipap vent and further management of respiratory failure, COVID 19 infection, per pulmonary. ID following - re evaluating for worsening leukocytosis Remain off lasix, as pt w/ prerenal azotemia, hypernatremia . Continue amlodipine for HTN. Add bystolic if needed. Supplement K and recheck labs in am Subjective ROS Limited/Unobtainable: No Subjective Cardiology for Dr. Awan Mr Horta remains on bipap vent. Per RN, pt had desat this am, to as low as 60s, but improved after respiratory treatment. Objective Last 24 Hour Vital Signs Date Time Temp Pulse Resp B/P (MAP) Pulse Ox O2 Delivery O2 Flow Rate FiO2 03/05/20 12:00 97.5 86 33 129/93 (105) 89 03/05/20 08:53 91 135/89 03/05/20 08:00 97.5 91 28 135/89 (104) 88 03/05/20 08:00 100 03/05/20 07:47 87 03/05/20 04:00 Bi-pap 100.0 Bi-pap Bi-pap 03/05/20 04:00 80 03/05/20 04:00 98.0 93 26 143/92 (109) 90 03/05/20 04:00 100 03/05/20 01:25 82 26 84 100 03/05/20 00:00 Bi-pap 100.0 Bi-pap Bi-pap 03/05/20 00:00 100 03/05/20 00:00 86 03/05/20 00:00 98.0 93 22 132/94 (107) 90 03/04/20 20:00 86 03/04/20 20:00 97.7 91 24 127/87 (100) 87 03/04/20 20:00 Bi-pap 100.0 Bi-pap Bi-pap 03/04/20 20:00 100 03/04/20 18:52 75 19 89 100 03/04/20 17:20 93 139/97 03/04/20 16:00 93 03/04/20 16:00 97.5 90 28 139/97 (111) 90 03/04/20 16:00 100 03/04/20 16:00 Bi-pap 100.0 Bi-pap Bi-pap 03/04/20 15:40 99 31 89 100 General Appearance: WD/WN, alert, other - on bipap vent. Exam deferred as pt in COVID isolation Intake and Output 03/04/20 03/05/20 19:00 07:00 Intake Total 560 ml 600 ml Output Total 850 ml Balance -290 ml 600 ml Intake Oral 560 ml 600 ml Output Urine Total 850 ml # Voids 3 2 Laboratory Tests Test 03/05/20 04:03 03/05/20 13:00 Random Vancomycin Level 14.3 ug/mL Arterial Blood pH 7.460 (7.350-7.450) Arterial Blood Partial Pressure CO2 37.8 mmHg (35.0-45.0) Arterial Blood Partial Pressure O2 Pending Arterial Blood HCO3 26.3 mmol/L (22.0-26.0) H Arterial Blood Oxygen Saturation 85.3 % (95-100) *L Arterial Blood Base Excess 2.6 (-2-2) H Shemar Test Positive Microbiology Date/Time Source Procedure Growth Status 03/03/20 23:00 Blood Blood Culture - Preliminary NO GROWTH AFTER 24 HOURS Resulted 03/03/20 23:00 Blood Blood Culture - Preliminary NO GROWTH AFTER 24 HOURS Resulted Lily Rene MD Mar 05, 2020 14:12
--- NOTE | 2020-03-05 14:43 | NUR ---
NURSE NOTES: PA park in on bed side and is aware about ABG results and spo2 87-90%, PA will F/U. Will continue to close monitoring.
--- NOTE | 2020-03-05 15:00 | NUR ---
NURSE NOTES: YENI Marinelli visitd pt and RN explained to PA spo2 dropped to 68 at 10 am and ABG results, PA stated he spoke with Dr Mata, no new order received. will continue to monitor.
[2020-03-05 16:00] VITALS: BP 127/97
--- NOTE | 2020-03-05 19:10 | NUR ---
NURSE HAND-OFF REPORT: Important Events on Shift: Patient Status: Diet: Pending Orders: Pending Results/Labs: Pending MD notification: Latest Vital Signs: Temperature 97.5 , Pulse 68 , B/P 127 /97 , Respiratory Rate 22 , O2 SAT 92 , Room Air, O2 Flow Rate 100.0 . Vital Sign Comment: EKG Rhythm: Sinus Rhythm Rhythm change?: N MD Notified?: N -Dr. Emperatriz INTERIANO Response: Message left await call Latest Hassan Fall Score: 45 Fall Risk: High Risk Safety Measures: Call light Within Reach, Bed Alarm Zone 1, Side Rails Side Rails x2, Bed position Low and Locked. Fall Precautions: Yellow Socks Patient Fall Education Report given to .Pt is awake and stable, no stress noted, endorsed plan of care, endorsed to monitor spo2.
--- NOTE | 2020-03-05 19:10 | NUR ---
NURSE NOTES: Dr. Michael aware abg o2- 85's. NNO ordered noted per Am nurse. Same bipap settings as ordered. Will continue to monitor pt closely. Pt is not tachypneic or in distress.
--- NOTE | 2020-03-05 19:15 | NUR ---
NURSE NOTES: Received report from PRIYANKA Estevez. Pt is lying in bed in semi- devine's position. Pt is alert oriented x 4. Verbally responsive, able to follow commands. Pt is on BIPAP with settings 20/10 fio2- 100%. O2 sat 95%, no signs of respiratory distress. No pain noted. Pt has Right upper arm picc line flushing and patent, pt is voiding per AM nurse. Pt per Am nurse not been eating that much only taking few amounts of ensure. Pt refusing meals. BS checked done- 101mg/dl. will inform Dr. Mata. Bed in lowest position, call light within reach, instructed the pt to call the Nurse if needed something. Continue to plan of care.
--- NOTE | 2020-03-05 19:41 | NUR ---
NURSE NOTES: Left voicemail to Dr. Mata, regarding pt is refusing meals and taking small amount of ensure. Awaiting for response.
--- NOTE | 2020-03-05 19:45 | NUR ---
NURSE NOTES: Encourage to sip ensure.
[2020-03-05 20:00] VITALS: BP 135/66
[2020-03-05] MEDS: Bactrim-DS 1 tab ORAL SCH (20:36)
[2020-03-05] MEDS: Dyna-Hex 2% Top Sol 2oz TOPIC SCH (20:36)
[2020-03-05] MEDS ORDERED: Enoxaparin Sodium 300mg/3ml vial SUBQ ONE (21:00)
--- NOTE | 2020-03-05 22:28 | Infectious Diseases Prog Note ---
Assessment/Plan Assessment/Plan ASSESSMENT AND PLAN: 1. staph aureus bacteremia/mssa, ? source, ? endocarditis, sepsis, leukocytosis, ? CAP, PJP less likely with HIV negative and steroids < 1 month covid-19 +, hypoxia, sob, chest x-ray worse, ? PE, ? HCAP/aspiration pna recurrent fevers - ? fungal, ? OI leukocytosis noted - ? new infection, ? steroids cocci serology negative, legionella negative, beta 1,3 D-glucan wnl, Il-16 - 13.7 - micafungin x 3 days - ancef iv, finish meropenem and vancomycin - day # 24 mssa tx post neg blood cultures - on dexamethasone, s/p remdesivir, bipap - consider weaning dexamethasone but will defer to pulmonary medicine - monitor hypoxia, labs and chest x-ray - CT imaging noted - leukocytosis noted and likely secondary to steroids, cultures negative, fevers better - bactrim prophylaxis 2. covid-19 isolation 3. Hypertension history. Blood pressure treatment primary care team. 4. Elevated blood sugars. Blood sugar treatment per primary care team. 5. No known drug allergies. 6. Social history is positive for smoking. 7. Family history is noncontributory. 8. MAR was noted. 9. Case was discussed with RN. 10. Continue treatment per primary consultants. Subjective Constitutional: Reports: other - less sob but still on bipap; Denies: fever HEENT: Reports: congestion Respiratory: Reports: shortness of breath Cardiovascular: Denies: chest pain Gastrointestinal/Abdominal: Denies: nausea, vomiting, diarrhea Genitourinary: Reports: other - no joseph Neurologic: Denies: headache Psychiatric: Reports: other - NA Skin: Denies: rash Hematologic: Denies: bleeding Musculoskeletal: Denies: pain Allergies: Coded Allergies: No Known Allergies (Unverified , 02/05/20) Objective Last 24 Hour Vital Signs Date Time Temp Pulse Resp B/P (MAP) Pulse Ox O2 Delivery O2 Flow Rate FiO2 03/05/20 20:00 90 03/05/20 20:00 100 03/05/20 20:00 Bi-pap 100.0 Bi-pap Bi-pap 03/05/20 20:00 97.7 90 21 135/66 (89) 95 03/05/20 19:25 85 31 91 100 03/05/20 18:02 68 127/97 03/05/20 16:00 100 03/05/20 16:00 97.5 68 22 127/97 (107) 92 03/05/20 16:00 Bi-pap 100.0 Bi-pap Bi-pap 03/05/20 15:35 87 03/05/20 12:55 85 25 92 100 03/05/20 12:00 97.5 86 33 129/93 (105) 89 03/05/20 12:00 100 03/05/20 12:00 Bi-pap 100.0 Bi-pap Bi-pap 03/05/20 12:00 99 03/05/20 08:53 91 135/89 03/05/20 08:00 97.5 91 28 135/89 (104) 88 03/05/20 08:00 100 03/05/20 08:00 Bi-pap 100.0 Bi-pap Bi-pap 03/05/20 07:47 87 03/05/20 06:55 94 29 87 100 03/05/20 06:55 94 29 88 Bi-Pap 100 03/05/20 04:00 Bi-pap 100.0 Bi-pap Bi-pap 03/05/20 04:00 80 03/05/20 04:00 98.0 93 26 143/92 (109) 90 03/05/20 04:00 100 03/05/20 01:25 82 26 84 100 03/05/20 00:00 Bi-pap 100.0 Bi-pap Bi-pap 03/05/20 00:00 100 03/05/20 00:00 86 03/05/20 00:00 98.0 93 22 132/94 (107) 90 Height (Feet): 5 Height (Inches): 10.00 Weight (Pounds): 240 General Appearance: no acute distress, other - on bipap HEENT: normocephalic, atraumatic, anicteric, mucous membranes moist Respiratory/Chest: crackles/rales, rhonchi - bilaterally Cardiovascular: normal rate, regular rhythm, no gallop/murmur, no JVD Abdomen: normal bowel sounds, soft, non tender, no organomegaly, non distended Genitourinary: other - no joseph Extremities: no cyanosis Skin: no rash Neurologic/Psychiatric: night baker II-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 The infiltrates are typical for Covid 19. No evidence of pulmonary embolus. CT abdomen and pelvis: IMPRESSION: 1. Scattered hepatic hypodense lesions, too small to characterize on this examination without intravenous contrast. 2. Colonic diverticulosis without evidence of acute diverticulitis. 3. Scattered enlarged mesenteric lymph nodes, presumably reactive. teral pneumonia. The infiltrates are typical for Covid 19. No evidence of pulmonary embolus. Chest x-ray - 12/19/19 - Indication: Shortness of breath Technique: One view of the chest Comparison: 02/17/2020 Findings: Interim worsening of bilateral infiltrates, particularly on the right. The heart is borderline enlarged. The pleural spaces are clear. Left arm PICC is again demonstrated Impression: Worsening bilateral infiltrates over one day, likely pneumonia CT chest - 02/19/20 - IMPRESSION: Increased extensive patchy ground-glass opacities and densities throughout the lungs, suggestive of Covid 19 infection. Chest x-ray 02/23/20 - Procedure: XRAY Chest 1v As Indication: Reason For Exam: INFECT Technique: One view of the chest Comparison: 02/20/2020 Findings: Allowing for differences in exposure technique, bilateral mid and lower lung infiltrates are probably unchanged. The heart size is normal. The pleural spaces are clear. Impression: Unchanged, over 4 days, findings as above. Chest x-ray - 02/25/20 - FINDINGS: Lungs: Interval slightly worsening bilateral airspace disease. Pleural space: Unremarkable. No pneumothorax. Heart: Unremarkable. No cardiomegaly. Mediastinum: Unremarkable. Bones/joints: Unremarkable. IMPRESSION: Interval slightly worsening bilateral airspace disease. Chest x-ray - 03/02/20 - Procedure: XRAY Chest 1v Indication: Shortness of breath Technique: One view of the chest Comparison: 02/25/2020 Findings: Bilateral interstitial and airspace infiltrates are unchanged. The heart size is normal. Left arm PICC is again demonstrated Impression: Unchanged, over one day, findings as above. Microbiology Date/Time Source Procedure Growth Status 03/03/20 23:00 Blood Blood Culture - Preliminary NO GROWTH AFTER 24 HOURS Resulted 02/17/20 19:00 Urine,Clean Catch Urine Culture - Final NO GROWTH AFTER 48 HOURS Complete 02/10/20 06:30 Nasopharynx SARS-CoV-2 RdRp Gene Assay - Final Complete Microbiology Date/Time Source Procedure Growth Status 03/03/20 23:00 Blood Blood Culture - Preliminary NO GROWTH AFTER 24 HOURS Resulted 03/03/20 23:00 Blood Blood Culture - Preliminary NO GROWTH AFTER 24 HOURS Resulted Labs Test 03/03/20 23:00 03/04/20 05:00 03/04/20 09:00 03/04/20 11:00 Vancomycin Level Trough 28.8 ug/mL (5.0-12.0) 27.5 ug/mL (5.0-12.0) White Blood Count 17.9 K/UL (4.8-10.8) Red Blood Count 5.48 M/UL (4.70-6.10) Hemoglobin 15.7 G/DL (14.2-18.0) Hematocrit 50.0 % (42.0-52.0) Mean Corpuscular Volume 91 FL (80-99) Mean Corpuscular Hemoglobin 28.7 PG (27.0-31.0) Mean Corpuscular Hemoglobin Concent 31.5 G/DL (32.0-36.0) Red Cell Distribution Width 13.9 % (11.6-14.8) Platelet Count 398 K/UL (150-450) Mean Platelet Volume 7.4 FL (6.5-10.1) Neutrophils (%) (Auto) % (45.0-75.0) Lymphocytes (%) (Auto) % (20.0-45.0) Monocytes (%) (Auto) % (1.0-10.0) Eosinophils (%) (Auto) % (0.0-3.0) Basophils (%) (Auto) % (0.0-2.0) Differential Total Cells Counted 100 Neutrophils % (Manual) 95 % (45-75) Lymphocytes % (Manual) 3 % (20-45) Monocytes % (Manual) 1 % (1-10) Eosinophils % (Manual) 1 % (0-3) Basophils % (Manual) 0 % (0-2) Band Neutrophils 0 % (0-8) Platelet Estimate Adequate Platelet Morphology Normal Red Blood Cell Morphology Normal Sodium Level 152 MMOL/L (136-145) Potassium Level 3.3 MMOL/L (3.5-5.1) Chloride Level 115 MMOL/L (98-107) Carbon Dioxide Level 29 MMOL/L (21-32) Anion Gap 8 mmol/L (5-15) Blood Urea Nitrogen 44 mg/dL (7-18) Creatinine 1.3 MG/DL (0.55-1.30) Estimat Glomerular Filtration Rate 55.9 mL/min (>60) Glucose Level 105 MG/DL (74-106) Calcium Level 8.9 MG/DL (8.5-10.1) Total Bilirubin 0.7 MG/DL (0.2-1.0) Aspartate Amino Transf (AST/SGOT) 33 U/L (15-37) Alanine Aminotransferase (ALT/SGPT) 27 U/L (12-78) Alkaline Phosphatase 126 U/L (46-116) Total Protein 7.2 G/DL (6.4-8.2) Albumin 2.1 G/DL (3.4-5.0) Globulin 5.1 g/dL Albumin/Globulin Ratio 0.4 (1.0-2.7) Urine Color Yellow Urine Appearance Slightly cloudy Urine pH 5 (4.5-8.0) Urine Specific [place] 1.020 (1.005-1.035) Urine Protein 2+ (NEGATIVE) Urine Glucose (UA) Negative (NEGATIVE) Urine Ketones 1+ (NEGATIVE) Urine Blood 4+ (NEGATIVE) Urine Nitrite Negative (NEGATIVE) Urine Bilirubin Negative (NEGATIVE) Urine Urobilinogen Normal MG/DL (0.0-1.0) Urine Leukocyte Esterase Negative (NEGATIVE) Urine RBC 0-2 /HPF (0 - 0) Urine WBC 0-2 /HPF (0 - 0) Urine Squamous Epithelial Cells Occasional /LPF Urine Uric Acid Crystals Few /LPF (NONE) Urine Amorphous Sediment Few /LPF (NONE) Urine Bacteria Occasional /HPF (NONE) Test 03/05/20 04:03 03/05/20 13:00 Random Vancomycin Level 14.3 ug/mL Arterial Blood pH 7.460 (7.350-7.450) Arterial Blood Partial Pressure CO2 37.8 mmHg (35.0-45.0) Arterial Blood HCO3 26.3 mmol/L (22.0-26.0) Arterial Blood Oxygen Saturation 85.3 % (95-100) Arterial Blood Base Excess 2.6 (-2-2) Shemar Test Positive Laboratory Tests Test 03/05/20 04:03 03/05/20 13:00 Random Vancomycin Level 14.3 ug/mL Arterial Blood pH 7.460 (7.350-7.450) Arterial Blood Partial Pressure CO2 37.8 mmHg (35.0-45.0) Arterial Blood Partial Pressure O2 Pending Arterial Blood HCO3 26.3 mmol/L (22.0-26.0) H Arterial Blood Oxygen Saturation 85.3 % (95-100) *L Arterial Blood Base Excess 2.6 (-2-2) H Shemar Test Positive Current Medications Medications (Trade) Dose Ordered Sig/Dennis Route PRN Reason Start Time Stop Time Status Last Admin Dose Admin Acetaminophen (Tylenol) 650 mg Q4H PRN ORAL Temp >100.5 02/05/20 13:15 03/06/20 13:14 02/27/20 21:22 Acetaminophen (Tylenol) 650 mg Q4H PRN ORAL Pain (1-3) 02/09/20 08:30 03/10/20 08:29 02/23/20 09:00 Amlodipine Besylate (Norvasc) 5 mg BID ORAL 02/10/20 09:00 03/11/20 08:59 03/05/20 18:02 Bisacodyl (Dulcolax) 10 mg HSPRN PRN RECTAL Constipation 02/05/20 13:15 05/05/20 13:14 Chlorhexidine Gluconate (Marlen-Hex 2%) 1 applic DAILY@2000 TOPIC 02/14/20 20:00 05/14/20 19:59 03/05/20 20:36 Dexamethasone Sodium Phosphate (Decadron 10mg/ ml Inj) 6 mg DAILY IV 02/27/20 09:00 03/08/20 08:59 03/05/20 08:54 Dextrose (Dextrose 50%) 25 ml Q30M PRN IV Hypoglycemia 02/05/20 13:15 05/05/20 13:14 Dextrose (Dextrose 50%) 50 ml Q30M PRN IV Hypoglycemia 02/05/20 13:15 05/05/20 13:14 Enoxaparin Sodium (Lovenox) 110 mg EVERY 12 HOURS SUBQ 03/06/20 09:00 06/04/20 08:59 Ibuprofen (Motrin) 600 mg TIDPRN PRN ORAL Breakthrough Pain 02/17/20 19:30 03/18/20 19:29 02/21/20 20:56 Magnesium Hydroxide (Mom) 30 ml HSPRN PRN ORAL Constipation 02/05/20 13:15 03/06/20 13:14 Micafungin Sodium 100 mg/Sodium Chloride 100 ml @ 100 mls/hr Q24H IVPB 03/02/20 14:00 03/09/20 13:59 03/05/20 13:07 Ondansetron HCl (Zofran) 4 mg Q6H PRN IVP Nausea & Vomiting 02/05/20 13:15 03/06/20 13:14 Pantoprazole (Protonix) 40 mg DAILY ORAL 02/06/20 09:00 03/07/20 08:59 03/05/20 08:53 Polyethylene Glycol (Miralax) 17 gm HSPRN PRN ORAL Constipation 02/05/20 13:15 03/06/20 13:14 Promethazine HCl/ Codeine (Phenergan with Codeine) 5 ml Q4H PRN ORAL For Cough 02/22/20 12:15 03/23/20 12:14 02/26/20 04:05 Trimethoprim/ Sulfamethoxazole (Bactrim-DS) 1 tab Q24HRS ORAL 03/03/20 20:00 03/10/20 19:59 03/05/20 20:36 Vancomycin HCl (Vanco pharmacy to dose) 1 ea DAILY PRN MISC Per rx protocol 02/26/20 19:30 03/27/20 19:29 Vancomycin HCl 1 gm/Dextrose 275 ml @ 183.708 mls/hr Q12H IVPB 03/06/20 06:00 03/11/20 05:59 Kisha Salazar MD Mar 05, 2020 22:28
--- NOTE | 2020-03-05 23:11 | NUR ---
NURSE NOTES: Informed Dr. Correa regarding pt poor PO intake, per Doctor refer to primary doctor.
[2020-03-06] VITALS: BP 140/89
[2020-03-06] MEDS ORDERED: ceFAZolin 2gm/50ml Premix 50 ML IV SCH (02:00)
--- NOTE | 2020-03-06 02:43 | NUR ---
NURSE NOTES: [facility], note that meds not given because meds not available this time and pharmacy will adjust ancef dose.
[2020-03-06 04:00] VITALS: BP 124/97
--- NOTE | 2020-03-06 04:46 | NUR ---
NURSE NOTES: Noted to have o2 sat- 88% upon changing pt, Dr. spann previously aware and Dr. Mata, the Abg machine is broken, and noted that pt o2 sat is on 70'-80's this morning, no new order noted. Pt is combative and resistive to care, pt stated that he doesn't want to be upgraded to ICU and doesn't intubated, refer in AM, charge nurse notified, will endorsed to AM shift. Provided calm environment, RT on the bedside. Will monitor pt closely.
--- NOTE | 2020-03-06 05:14 | NUR ---
NURSE NOTES: In camp housekeeper made aware and charge Nurse ABG machine broken.
--- NOTE | 2020-03-06 05:15 | NUR ---
NURSE NOTES: Per Medic Technician all doctors amde aware ABG machine is broken.
--- NOTE | 2020-03-06 05:41 | NUR ---
NURSE NOTES: Per MD notes of Dr. Mata, he was aware pt is not eating, left a message still. Per MD notes of Isis Muniz pt desaturates to 70's- 80's this AM shift, o2 sat at this time 87-89%, tachypnea noted. Fio2 100% on BIPAP 20/10, RT made aware, provided calm environment and blanket. Continue to monitor closely. Pt is not in distress, sleeping, no accessory muscles use, no jugular vein distention noted. Unable to perform FERNY per Dr. Mata noted. Will endorsed to AM.
[2020-03-06] MEDS ORDERED: Vancomycin 1gm/D5W 275ml IVPB SCH ×2 (06:00)
--- NOTE | 2020-03-06 06:06 | NUR ---
NURSE NOTES: Pt is sleeping, no signs of distress noted. Fixed o2 sat- still 02 on 87 lowest and to 90. Pt RR is normal, with no tachypnea noted. Will continue to monitor.
--- NOTE | 2020-03-06 06:27 | NUR ---
NURSE NOTES: O2 sat right now- 90-92%. Change pulse oximeter and blanket provided. BS- 91mg/ dl. Pt is sleeping comfortably in bed.
[2020-03-06 06:59] LABS: HEMATOCRIT 51.6 % (42.0-52.0); HEMOGLOBIN 16.3 G/DL (14.2-18.0); MEAN CORPUSCULAR VOLUME 91 FL (80-99); PLATELET COUNT 334 K/UL (150-450); RED BLOOD COUNT 5.69 M/UL (4.70-6.10); RED CELL DISTRIBUTION WIDTH 14.1 % (11.6-14.8); WHITE BLOOD COUNT 13.1 K/UL (4.8-10.8)
--- NOTE | 2020-03-06 07:15 | NUR ---
NURSE HAND-OFF REPORT: Important Events on Shift: pt is desaturating to 88% upon changing, Dr. Michael aware per MD notes, pt has not in distress. Refused feeding- LVm to Dr. Mata Patient Status: Critical and guarded Diet: Cardiac diet Pending Orders: None Pending Results/Labs: nOne Pending MD notification: None Latest Vital Signs: Temperature 96.8 , Pulse 66 , B/P 124 /97 , Respiratory Rate 27 , O2 SAT 89 , Room Air, O2 Flow Rate 100.0 . Vital Sign Comment: EKG Rhythm: Sinus Rhythm Rhythm change?: N MD Notified?: N -Dr. Emperatriz INTERIANO Response: Message left await call Latest Hassan Fall Score: 45 Fall Risk: High Risk Safety Measures: Call light Within Reach, Bed Alarm Zone 1, Side Rails Side Rails x2, Bed position Low and Locked. Fall Precautions: Yellow Socks Patient Fall Education Report given to [PRIYANKA Crockett].
[2020-03-06 07:56] LABS: ALBUMIN 2.3 G/DL (3.4-5.0); ALBUMIN/GLOBULIN RATIO 0.4 (1.0-2.7); BILIRUBIN,TOTAL 0.6 MG/DL (0.2-1.0); CALCIUM 9.4 MG/DL (8.5-10.1); CREATININE 1.3 MG/DL (0.55-1.30); POTASSIUM 3.9 MMOL/L (3.5-5.1)
[2020-03-06 08:00] VITALS: BP 140/99
--- NOTE | 2020-03-06 08:05 | NUR ---
NURSE NOTES: Received report from PRIYANKA Rodarte. Pt is awake and AOx4 and verbally responsive. Pt is on Bipap with O2 sat 88%, no signs of respiratory distress. No pain noted. Pt has Right upper arm picc line flushing and patent, pt is voiding per AM nurse. Pt refusing meals per report. Will follow up with Dr Mata, Bed in lowest position, call light within reach, instructed the pt to call the Nurse if needed something. Continue to plan of care.
[2020-03-06] MEDS: ceFAZolin 2gm/50ml Premix 50 ML IV SCH ×3 (08:41→23:12)
[2020-03-06] MEDS: dexAMETHasone 10mg/ml Inj IV SCH (08:41)
[2020-03-06] MEDS ORDERED: Enoxaparin 80mg Inj SUBQ SCH (09:00)
[2020-03-06] MEDS ORDERED: Enoxaparin 120 mg inj SUBQ SCH ×2 (09:00→21:00)
[2020-03-06] MEDS ORDERED: Enoxaparin 30mg Inj SUBQ SCH (09:00)
--- NOTE | 2020-03-06 09:37 | NUR ---
RD ASSESSMENT & RECOMMENDATIONS SEE CARE ACTIVITY FOR COMPLETE ASSESSMENT DAILY ESTIMATED NEEDS: Needs based on Pulmonary, cardiac 87kg abw 23-28 kcals/kg 1047-3515 total kcals 1.25-1.5 g protein/kg 109 g total protein 25-30 mL/kg 4933-0494 total fluid mLs NUTRITION DIAGNOSIS: * Inadequate oral intake R/T clinical and respiratory status as evidenced by COVID-19 ++, on continuous BIPAP, prolonged meal refusals. * Decreased sodium and fat needs r/t HTN and obesity as evidenced by pt w/ cardiac history, elev BP (159/98-> now improved, on BP meds and diuretics), BMI >30, obese per guidelines. CURRENT DIET: Cardiac + Ensure x3 PO DIET RECOMMENDATIONS: Liberalized REGULAR w/ poor PO at this time (texture per DESKTOP SUPPORT MANAGER) ENTERAL NUTRITION RECOMMENDATIONS: POOR PO INTAKE D/T BIPAP-> REC NON ORAL FEEDS IF MEDICALLY ABLE TPN Comment: CONSIDER TPN IF PT CONTINUES ON BIPAP AND UNABLE TO TOLERATE OR REFUSE NGT FEEDS AND CONT W/ POOR PO ADDITIONAL RECOMMENDATIONS: 1) Maintain calibrated bedscale wts; obtain a standing wt as able 2) Obtain HgA1C for eval 3) Monitor PO intake: decreased intake on 02/14 per EMR Now mostly refusal of meals x 12 days Non oral feeds if medically appropriate w/ Bipap. 4) Monitor hydration status- on lasix, without IVF, unable to tolerate PO 5) Consider TPN w/ poor po and possible aspiration risk on bipap.
--- NOTE | 2020-03-06 11:00 | Pulmonology Progress Note ---
Subjective ROS Limited/Unobtainable: No Interval Events: tolerating BiPAP Constitutional: Reports: other - less sob but still on bipap; Denies: fever HEENT: Repors: no symptoms Respiratory: Reports: dry cough, shortness of breath Cardiovascular: Denies: no symptoms, chest pain, palpitations, other Gastrointestinal/Abdominal: Denies: nausea, vomiting, diarrhea Psychiatric: Reports: other - NA Skin: Denies: rash Musculoskeletal: Denies: pain Allergies: Coded Allergies: No Known Allergies (Unverified , 02/05/20) Objective Last 24 Hour Vital Signs Date Time Temp Pulse Resp B/P (MAP) Pulse Ox O2 Delivery O2 Flow Rate FiO2 03/06/20 08:41 91 140/99 03/06/20 08:00 Bi-pap 100.0 Bi-pap Bi-pap 03/06/20 08:00 97.1 91 24 140/99 (113) 89 03/06/20 08:00 100 03/06/20 08:00 88 03/06/20 07:10 101 31 88 100 03/06/20 04:00 96.8 84 27 124/97 (106) 89 03/06/20 04:00 100 03/06/20 04:00 Bi-pap 100.0 Bi-pap Bi-pap 03/06/20 04:00 66 03/06/20 01:15 81 19 90 100 03/06/20 00:00 85 03/06/20 00:00 Bi-pap 100.0 Bi-pap Bi-pap 03/06/20 00:00 100 03/06/20 00:00 97.0 85 23 140/89 (106) 91 03/05/20 20:00 90 03/05/20 20:00 100 03/05/20 20:00 Bi-pap 100.0 Bi-pap Bi-pap 03/05/20 20:00 97.7 90 21 135/66 (89) 95 03/05/20 19:25 85 31 91 100 03/05/20 18:02 68 127/97 03/05/20 16:00 100 03/05/20 16:00 97.5 68 22 127/97 (107) 92 03/05/20 16:00 Bi-pap 100.0 Bi-pap Bi-pap 03/05/20 15:35 87 03/05/20 12:55 85 25 92 100 03/05/20 12:00 97.5 86 33 129/93 (105) 89 03/05/20 12:00 100 03/05/20 12:00 Bi-pap 100.0 Bi-pap Bi-pap 03/05/20 12:00 99 Intake and Output 03/05/20 03/06/20 19:00 07:00 Intake Total 750 ml 250 ml Output Total 880 ml 450 ml Balance -130 ml -200 ml Intake Oral 250 ml IV Total 750 ml Output Urine Total 880 ml 450 ml # Voids 4 Objective 03/06 saturating at 85-88% on BiPAP 03/05 saturating 77-88% on BiPAP 03/04 now saturating at 89-90% on BiPAP 03/03 saturating in the low 80s on BiPAP 02/28 saturating 93% on BiPAP 02/23 saturating 94% on BiPAP 02/22 tolerating BiPAP, saturating at 90% 02/21 now on BiPAP, saturating at 95% 02/18 still on 15L NRB mask saturating 88-93% 02/17 now on 15L NRB mask saturating at 91% 02/17/2020 now on 2 lpm NC 02/16/2020 no change 02/15/2020 no major change 02/14/2020 saturating well on RAD; NAD 02/13/2020 pt asleep; saturating well on RA 02/12/2020 sitting up in a chair; saturating well on RA 02/11/2020 back on isolation due to COVID-19 positive status again; currently being worked up for positive blood culture 02/09/2020 off isolation; saturating well on RA 02/08/2020 feeling better; COVID-19 PCR neg 02/07/2020 reports feeling better; COVID-19 PCR pending 02/06/2020 pt laying in bed; reports feeling better General Appearance: WD/WN, no acute distress HEENT: normocephalic, atraumatic Respiratory: chest wall non-tender Cardiovascular: normal rate, regular rhythm Abdomen: normal bowel sounds, soft, non tender, other - obese Microbiology Date/Time Source Procedure Growth Status 03/03/20 23:00 Blood Blood Culture - Preliminary NO GROWTH AFTER 48 HOURS Resulted 03/03/20 23:00 Blood Blood Culture - Preliminary NO GROWTH AFTER 48 HOURS Resulted Laboratory Tests 03/05/20 13:00: Arterial Blood pH 7.460H, Arterial Blood Partial Pressure CO2 37.8, Arterial Blood Partial Pressure O2 [Pending], Arterial Blood HCO3 26.3H, Arterial Blood Oxygen Saturation 85.3*L, Arterial Blood Base Excess 2.6H, Shemar Test Positive 03/06/20 05:10: White Blood Count 13.1H, Red Blood Count 5.69, Hemoglobin 16.3, Hematocrit 51.6, Mean Corpuscular Volume 91, Mean Corpuscular Hemoglobin 28.7, Mean Corpuscular Hemoglobin Concent 31.6L, Red Cell Distribution Width 14.1, Platelet Count 334, Mean Platelet Volume 8.0, Neutrophils (%) (Auto) , Lymphocytes (%) (Auto) , Monocytes (%) (Auto) , Eosinophils (%) (Auto) , Basophils (%) (Auto) , Di fferential Total Cells Counted 100, Neutrophils % (Manual) 93H, Lymphocytes % (Manual) 6L, Monocytes % (Manual) 1, Eosinophils % (Manual) 0, Basophils % (Manual) 0, Band Neutrophils 0, Platelet Estimate Adequate, Platelet Morphology Normal, Red Blood Cell Morphology Normal, Sodium Level 158H, Potassium Level 3.9, Chloride Level 123H, Carbon Dioxide Level 27, Anion Gap 8, Blood Urea Nitrogen 46H, Creatinine 1.3, Estimat Glomerular Filtration Rate 55.9, Glucose Level 98, Calcium Level 9.4, Total Bilirubin 0.6, Aspartate Amino Transf (AST/SGOT) 34, Alanine Aminotransferase (ALT/SGPT) 32, Alkaline Phosphatase 135H , C-Reactive Protein, Quantitative [Pending], Total Protein 7.6, Albumin 2.3L, Globulin 5.3, Albumin/Globulin Ratio 0.4L Current Medications Medications (Trade) Dose Ordered Sig/Dennis Route PRN Reason Start Time Stop Time Status Last Admin Dose Admin Acetaminophen (Tylenol) 650 mg Q4H PRN ORAL Temp >100.5 02/05/20 13:15 03/06/20 13:14 02/27/20 21:22 Acetaminophen (Tylenol) 650 mg Q4H PRN ORAL Pain (1-3) 02/09/20 08:30 03/10/20 08:29 02/23/20 09:00 Amlodipine Besylate (Norvasc) 5 mg BID ORAL 02/10/20 09:00 03/11/20 08:59 03/06/20 08:41 Bisacodyl (Dulcolax) 10 mg HSPRN PRN RECTAL Constipation 02/05/20 13:15 05/05/20 13:14 Cefazolin Sodium 50 ml @ 100 mls/hr Q8H IV 03/06/20 08:00 03/13/20 07:59 03/06/20 08:41 Chlorhexidine Gluconate (Marlen-Hex 2%) 1 applic DAILY@2000 TOPIC 02/14/20 20:00 05/14/20 19:59 03/05/20 20:36 Dexamethasone Sodium Phosphate (Decadron 10mg/ ml Inj) 6 mg DAILY IV 02/27/20 09:00 03/08/20 08:59 03/06/20 08:41 Dextrose (Dextrose 50%) 25 ml Q30M PRN IV Hypoglycemia 02/05/20 13:15 05/05/20 13:14 Dextrose (Dextrose 50%) 50 ml Q30M PRN IV Hypoglycemia 02/05/20 13:15 05/05/20 13:14 Enoxaparin Sodium (Lovenox) 30 mg Q12HR SUBQ 03/06/20 09:00 03/06/20 12:00 03/06/20 08:44 Enoxaparin Sodium (Lovenox) 80 mg Q12HR SUBQ 03/06/20 09:00 03/06/20 12:00 03/06/20 08:43 Enoxaparin Sodium (Lovenox) 110 mg EVERY 12 HOURS SUBQ 03/06/20 21:00 06/04/20 20:59 Ibuprofen (Motrin) 600 mg TIDPRN PRN ORAL Breakthrough Pain 02/17/20 19:30 03/18/20 19:29 02/21/20 20:56 Magnesium Hydroxide (Mom) 30 ml HSPRN PRN ORAL Constipation 02/05/20 13:15 03/06/20 13:14 Micafungin Sodium 100 mg/Sodium Chloride 100 ml @ 100 mls/hr Q24H IVPB 03/02/20 14:00 03/09/20 13:59 03/05/20 13:07 Ondansetron HCl (Zofran) 4 mg Q6H PRN IVP Nausea & Vomiting 02/05/20 13:15 03/06/20 13:14 Pantoprazole (Protonix) 40 mg DAILY ORAL 02/06/20 09:00 03/07/20 08:59 03/06/20 08:41 Polyethylene Glycol (Miralax) 17 gm HSPRN PRN ORAL Constipation 02/05/20 13:15 03/06/20 13:14 Promethazine HCl/ Codeine (Phenergan with Codeine) 5 ml Q4H PRN ORAL For Cough 02/22/20 12:15 03/23/20 12:14 02/26/20 04:05 Trimethoprim/ Sulfamethoxazole (Bactrim-DS) 1 tab Q24HRS ORAL 03/03/20 20:00 03/10/20 19:59 03/05/20 20:36 Assessment/Plan Assessment/Plan 1.COVID-19 pneumonia. - last COVID-19 test positive after two negative tests - CTA 02/05/2020 ground-glass and consolidating infiltrates in the dependent portions of both lower lobes and to lesser degree the upper lobes consistent with bilateral pneumonia. No evidence of pulmonary embolus. - CXR 02/17/2020 worsening bilateral infiltrates; on broad spectrum abx per ID - CT chest 02/18 shows Increased extensive patchy ground-glass opacities and densities throughout the lungs, suggestive of Covid 19 infection. - currently on BiPAP. Saturations 90%. - Mycoplasma pneumoniae IgG 273; M. pneumoniae IgM titer within normal limits - D-dimer 0.90; on full dose Lovenox - on decadron per ID due to worsening hypoxia - s/p remdesivir - now off Lasix per Dr. Awan due to elevated Na - is now net I/O negative 2. Initial negative rapid COVID-19 gene assay.- however repeat COVID-19 test positive 3. Smoker. 4. DVT ppx - on lovenox 5. Hypertension - on Norvasc 6. Blood culture positive for gram positive cocci staph aureus - on Abx - CT abd/pelvis showed no abscess per ID 7. low appetite; poor oral intake - TPN recommended per nutrition eval - will hold off on TPN for now 8. Leukocytosis - Consider weaning steroids per ID - Started bactrim prophylaxis per ID 9. hypernatremia - initiated D5W HIV antibody 1&2 neg The care for this patient was discussed with my supervising physician Time spent for this case was approximately 31 minutes Edilson Marinelli Mar 06, 2020 11:00
--- NOTE | 2020-03-06 11:56 | Diagnostic Imaging Report ---
Indication: Shortness of breath Technique: One view of the chest Comparison: 03/02/2020 Findings: Bilateral infiltrates are unchanged. Normal heart size. Pleural spaces are clear Impression: Unchanged, over 4 days, findings as above.
[2020-03-06 12:00] VITALS: BP 135/85
--- NOTE | 2020-03-06 12:06 | NUR ---
Museum DirectorStoner Out SI: Respiratory Failure, COVID PNA T 97.1, HR 91, RR 24, BP 140/99 BIPAP 20/10, FiO2 100% O2 sat 89% WBC 13.1, BUN 46, NA+ 158, Alk Phos 135 IS: Vancomycin IV q 8 h Cefazolin IV Lovenox SQ q 12 h Dexamethasone IV QD Lasix IV Micafungin IV q 24 h Step Down Status
--- NOTE | 2020-03-06 12:51 | NUR ---
RADIOLOGY DEPT., CHEST X-RAY DONE.-P.DYE
[2020-03-06 16:00] VITALS: BP 137/95
--- NOTE | 2020-03-06 19:20 | NUR ---
NURSE NOTES: Received report from daija Crockett RN. Pt is lying in bed, on BiPap tolerating setting of 20/10, 100% FiO2 saturating 94-96%. Pt is alert and oriented x 4. io Addendum: 03/06/20 at 1946 by Rosemary Schaefer RN RN on the panel monitor. Denies pain, not in acute distress. PICC line in L UA inserted 02/13 is intact and patent running D5W @ 75cc/hr. Sacral st II is noted and dressing is intact. Bed is locked and in lowest position, bed alarm on, call light is with the pt. Fall and aspiration precautions are in place. Recent labs, MD orders, and medications reviewed. Will continue to monitor pt. Will continue with the plan of care.
[2020-03-06 20:00] VITALS: BP 128/76
[2020-03-06] MEDS: Dyna-Hex 2% Top Sol 2oz TOPIC SCH (20:10)
[2020-03-06] MEDS: Bactrim-DS 1 tab ORAL SCH (20:11)
--- NOTE | 2020-03-06 20:23 | NUR ---
NURSE NOTES: Called Dr. Mata regarding Lovenox. Pt had bleeding from the nostrils in the afternoon, and is still having slight bleeding from the nostrils. Dr. Mata ordered to discontinue the Lovenox. Will continue with the plan of care. Will continue to monitor the pt.
--- NOTE | 2020-03-06 21:30 | NUR ---
NURSE NOTES: Initial assessment done. Slight bleeding from nostrils noted. Pt is asleep, tolerating BiPap setting saturating 94%. Desaturates right away when Bipap is removed for medications. No acute distress noted. Will continue to monitor pt.
[2020-03-07] VITALS: BP 149/102
--- NOTE | 2020-03-07 03:20 | NUR ---
NURSE NOTES: Pt is given chlorhexidine sponge bath. Gown and linens changed. Pt O2 saturation went down to 80. Pt is SOB with exertion. He Addendum: 03/07/20 at 0323 by Rosemary Schaefer RN RN became anxious. RT was called to assess pt. O2 saturation went back up to 90. Will continue to monitor pt. closely.
--- NOTE | 2020-03-07 03:30 | NUR ---
NURSE NOTES: PICC line dressing changed. Pt tolerated. No bleeding nor infection noted in PICC line site. Will continue with plan of care.
[2020-03-07 04:00] VITALS: BP 131/94
[2020-03-07 06:27] LABS: HEMATOCRIT 44.3 % (42.0-52.0); HEMOGLOBIN 13.9 G/DL (14.2-18.0); MEAN CORPUSCULAR VOLUME 91 FL (80-99); PLATELET COUNT 234 K/UL (150-450); RED BLOOD COUNT 4.89 M/UL (4.70-6.10); RED CELL DISTRIBUTION WIDTH 16.1 % (11.6-14.8)
--- NOTE | 2020-03-07 07:15 | NUR ---
NURSE HAND-OFF REPORT: Important Events on Shift:None Patient Status: Full code Diet: Cardiac Diet Pending Orders: N Pending Results/Labs:N Pending MD notification:N Latest Vital Signs: Temperature 98.1 , Pulse 79 , B/P 131 /94 , Respiratory Rate 23 , O2 SAT 91 , Room Air, O2 Flow Rate 100.0 . Vital Sign Comment: stable, O2 sat decrease to 80S EKG Rhythm: Sinus Rhythm Rhythm change?: N MD Notified?: N -Dr. Emperatriz INTERIANO Response: Message left await call Latest Hassan Fall Score: 45 Fall Risk: High Risk Safety Measures: Call light Within Reach, Bed Alarm Zone 1, Side Rails Side Rails x2, Bed position Low and Locked. Fall Precautions: Yellow Socks Patient Fall Education Report given to daija Clarke RN.
--- NOTE | 2020-03-07 07:20 | NUR ---
NURSE NOTES: Received patient report from PRIYANKA Riley. Patient in bed, asleep. Patient on BiPap 20/10 FiO2 100%. Pt is AO x4. No pain or discomfort noted at this time. Patient with PICC line in L UA inserted 02/13 is intact and patent running D5W @ 75cc/hr. Bed in lowest position, locked with side rails x2 up. Call light within reach.
[2020-03-07 08:00] VITALS: BP 128/76
[2020-03-07] MEDS: ceFAZolin 2gm/50ml Premix 50 ML IV SCH ×2 (08:29→17:19)
[2020-03-07] MEDS: dexAMETHasone 10mg/ml Inj IV SCH (08:29)
--- NOTE | 2020-03-07 11:06 | NUR ---
Loom StarterTechnical Services Analyst SI: Respiratory Failure, COVID PNA T 97.1, HR 91, RR 24, BP 140/99 BIPAP 20/10, FiO2 100% O2 sat 91% WBC 14, BUN 46, NA+ 158, Alk Phos 135 Cxray 03-06-20 unchanged- bilateral infiltrates IS: Cefazolin IV Lovenox SQ q 12 h Dexamethasone IV QD Micafungin IV q 24 h Bactrim DS PO Step Down Status
[2020-03-07 11:24] LABS: CREATININE 1.4 MG/DL (0.55-1.30); POTASSIUM 4.2 MMOL/L (3.5-5.1)
[2020-03-07 11:29] LABS: ALBUMIN 2.3 G/DL (3.4-5.0); ALBUMIN/GLOBULIN RATIO 0.4 (1.0-2.7); BILIRUBIN,TOTAL 0.8 MG/DL (0.2-1.0)
[2020-03-07 12:00] VITALS: BP 138/80
[2020-03-07 16:00] VITALS: BP 139/97
--- NOTE | 2020-03-07 18:18 | Infectious Diseases Prog Note ---
Assessment/Plan Assessment/Plan ASSESSMENT AND PLAN: 1. staph aureus bacteremia/mssa, ? source, ? endocarditis, sepsis, leukocytosis, ? CAP, PJP less likely with HIV negative and steroids < 1 month covid-19 +, hypoxia, sob, chest x-ray worse, ? PE, ? HCAP/aspiration pna recurrent fevers - ? fungal, ? OI leukocytosis noted - ? new infection, ? steroids cocci serology negative, legionella negative, beta 1,3 D-glucan wnl, Il-16 - 13.7 - micafungin x 1 day - ancef iv, day # 26 mssa tx post neg blood cultures - on dexamethasone - d/w Dr. Mata and will change to solumedrol - monitor hypoxia, labs and chest x-ray - CT imaging noted - leukocytosis noted and likely secondary to steroids, cultures negative, fevers better - bactrim prophylaxis 2. covid-19 isolation 3. Hypertension history. Blood pressure treatment primary care team. 4. Elevated blood sugars. Blood sugar treatment per primary care team. 5. No known drug allergies. 6. Social history is positive for smoking. 7. Family history is noncontributory. 8. MAR was noted. 9. Case was discussed with RN. 10. Continue treatment per primary consultants. Subjective Constitutional: Reports: other - not eaating well per RN, + bipap ; Denies: fever HEENT: Reports: congestion Respiratory: Reports: shortness of breath Cardiovascular: Denies: chest pain Gastrointestinal/Abdominal: Denies: nausea, vomiting, diarrhea Genitourinary: Reports: other - no joseph Neurologic: Denies: headache Psychiatric: Denies: depression Skin: Denies: rash Hematologic: Denies: bleeding Allergies: Coded Allergies: No Known Allergies (Unverified , 02/05/20) Objective Last 24 Hour Vital Signs Date Time Temp Pulse Resp B/P (MAP) Pulse Ox O2 Delivery O2 Flow Rate FiO2 03/07/20 17:19 87 139/97 03/07/20 16:00 97.1 88 24 139/97 (111) 89 03/07/20 16:00 Bi-pap 100.0 Bi-pap Bi-pap 03/07/20 16:00 100 03/07/20 16:00 87 03/07/20 15:05 84 28 92 100 03/07/20 12:31 72 03/07/20 12:00 Bi-pap 100.0 Bi-pap Bi-pap 03/07/20 12:00 98.0 84 22 138/80 (99) 88 03/07/20 12:00 100 03/07/20 11:05 92 27 89 100 03/07/20 08:39 95 03/07/20 08:30 97 128/84 03/07/20 08:00 98.4 84 26 128/76 (93) 87 03/07/20 08:00 Bi-pap 100.0 Bi-pap Bi-pap 03/07/20 08:00 100 03/07/20 07:42 98 25 91 100 03/07/20 04:00 98.1 79 23 131/94 (106) 91 03/07/20 04:00 100 03/07/20 04:00 Bi-pap 100.0 Bi-pap Bi-pap 03/07/20 04:00 95 03/07/20 03:05 89 27 90 100 03/07/20 00:00 97.5 88 28 149/102 (118) 93 03/07/20 00:00 89 03/07/20 00:00 Bi-pap 100.0 Bi-pap Bi-pap 03/07/20 00:00 100 03/06/20 23:15 89 26 91 100 03/06/20 20:00 Bi-pap 100.0 Bi-pap Bi-pap 03/06/20 20:00 97.0 73 21 128/76 (93) 96 03/06/20 20:00 69 03/06/20 20:00 100 03/06/20 19:30 80 24 96 100 Height (Feet): 5 Height (Inches): 10.00 Weight (Pounds): 240 General Appearance: other - alert, on bipap HEENT: normocephalic, atraumatic, anicteric Respiratory/Chest: no accessory muscle use, crackles/rales, rhonchi - bilaterally Cardiovascular: normal rate, regular rhythm, no gallop/murmur, no JVD Abdomen: normal bowel sounds, soft, non tender, no organomegaly, non distended Genitourinary: other - no joseph Extremities: no cyanosis Skin: no rash 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 The infiltrates are typical for Covid 19. No evidence of pulmonary embolus. CT abdomen and pelvis: IMPRESSION: 1. Scattered hepatic hypodense lesions, too small to characterize on this examination without intravenous contrast. 2. Colonic diverticulosis without evidence of acute diverticulitis. 3. Scattered enlarged mesenteric lymph nodes, presumably reactive. teral pneumonia. The infiltrates are typical for Covid 19. No evidence of pulmonary embolus. Chest x-ray - 12/19/19 - Indication: Shortness of breath Technique: One view of the chest Comparison: 02/17/2020 Findings: Interim worsening of bilateral infiltrates, particularly on the right. The heart is borderline enlarged. The pleural spaces are clear. Left arm PICC is again demonstrated Impression: Worsening bilateral infiltrates over one day, likely pneumonia CT chest - 02/19/20 - IMPRESSION: Increased extensive patchy ground-glass opacities and densities throughout the lungs, suggestive of Covid 19 infection. Chest x-ray 02/23/20 - Procedure: XRAY Chest 1v As Indication: Reason For Exam: INFECT Technique: One view of the chest Comparison: 02/20/2020 Findings: Allowing for differences in exposure technique, bilateral mid and lower lung infiltrates are probably unchanged. The heart size is normal. The pleural spaces are clear. Impression: Unchanged, over 4 days, findings as above. Chest x-ray - 02/25/20 - FINDINGS: Lungs: Interval slightly worsening bilateral airspace disease. Pleural space: Unremarkable. No pneumothorax. Heart: Unremarkable. No cardiomegaly. Mediastinum: Unremarkable. Bones/joints: Unremarkable. IMPRESSION: Interval slightly worsening bilateral airspace disease. Chest x-ray - 03/02/20 - Procedure: XRAY Chest 1v Indication: Shortness of breath Technique: One view of the chest Comparison: 02/25/2020 Findings: Bilateral interstitial and airspace infiltrates are unchanged. The heart size is normal. Left arm PICC is again demonstrated Impression: Unchanged, over one day, findings as above. Chest x-ray - 03/06/20 - Procedure: XRAY Chest 1v Indication: Shortness of breath Technique: One view of the chest Comparison: 03/02/2020 Findings: Bilateral infiltrates are unchanged. Normal heart size. Pleural spaces are clear Impression: Unchanged, over 4 days, findings as above. Microbiology Date/Time Source Procedure Growth Status 03/03/20 23:00 Blood Blood Culture - Preliminary Resulted 02/17/20 19:00 Urine,Clean Catch Urine Culture - Final NO GROWTH AFTER 48 HOURS Complete 02/10/20 06:30 Nasopharynx SARS-CoV-2 RdRp Gene Assay - Final Complete Microbiology Date/Time Source Procedure Growth Status 03/03/20 23:00 Blood Blood Culture - Preliminary Resulted 02/17/20 19:00 Urine,Clean Catch Urine Culture - Final NO GROWTH AFTER 48 HOURS Complete 02/10/20 06:30 Nasopharynx SARS-CoV-2 RdRp Gene Assay - Final Complete Laboratory Tests Test 03/07/20 05:00 03/07/20 11:00 White Blood Count 14.0 K/UL (4.8-10.8) H Red Blood Count 4.89 M/UL (4.70-6.10) Hemoglobin 13.9 G/DL (14.2-18.0) L Hematocrit 44.3 % (42.0-52.0) Mean Corpuscular Volume 91 FL (80-99) Mean Corpuscular Hemoglobin 28.5 PG (27.0-31.0) Mean Corpuscular Hemoglobin Concent 31.4 G/DL (32.0-36.0) L Red Cell Distribution Width 16.1 % (11.6-14.8) H Platelet Count 234 K/UL (150-450) Mean Platelet Volume 8.0 FL (6.5-10.1) Neutrophils (%) (Auto) % (45.0-75.0) Lymphocytes (%) (Auto) % (20.0-45.0) Monocytes (%) (Auto) % (1.0-10.0) Eosinophils (%) (Auto) % (0.0-3.0) Basophils (%) (Auto) % (0.0-2.0) Differential Total Cells Counted 100 Neutrophils % (Manual) 94 % (45-75) H Lymphocytes % (Manual) 3 % (20-45) L Monocytes % (Manual) 2 % (1-10) Eosinophils % (Manual) 1 % (0-3) Basophils % (Manual) 0 % (0-2) Band Neutrophils 0 % (0-8) Platelet Estimate Adequate Platelet Morphology Normal Red Blood Cell Morphology Normal Sodium Level 157 MMOL/L (136-145) H Potassium Level 4.2 MMOL/L (3.5-5.1) Chloride Level 123 MMOL/L (98-107) H Carbon Dioxide Level 28 MMOL/L (21-32) Anion Gap 6 mmol/L (5-15) Blood Urea Nitrogen 42 mg/dL (7-18) H Creatinine 1.4 MG/DL (0.55-1.30) H Estimat Glomerular Filtration Rate 51.4 mL/min (>60) Glucose Level 121 MG/DL (74-106) H Calcium Level 9.0 MG/DL (8.5-10.1) Total Bilirubin 0.8 MG/DL (0.2-1.0) Aspartate Amino Transf (AST/SGOT) 39 U/L (15-37) H Alanine Aminotransferase (ALT/SGPT) 30 U/L (12-78) Alkaline Phosphatase 142 U/L (46-116) H Total Protein 7.6 G/DL (6.4-8.2) Albumin 2.3 G/DL (3.4-5.0) L Globulin 5.3 g/dL Albumin/Globulin Ratio 0.4 (1.0-2.7) L Current Medications Medications (Trade) Dose Ordered Sig/Dennis Route PRN Reason Start Time Stop Time Status Last Admin Dose Admin Acetaminophen (Tylenol) 650 mg Q4H PRN ORAL Pain (1-3) 02/09/20 08:30 03/10/20 08:29 02/23/20 09:00 Amlodipine Besylate (Norvasc) 5 mg BID ORAL 02/10/20 09:00 03/11/20 08:59 03/07/20 17:19 Bisacodyl (Dulcolax) 10 mg HSPRN PRN RECTAL Constipation 02/05/20 13:15 05/05/20 13:14 Cefazolin Sodium 50 ml @ 100 mls/hr Q8H IV 03/06/20 08:00 03/13/20 07:59 03/07/20 17:19 Chlorhexidine Gluconate (Marlen-Hex 2%) 1 applic DAILY@2000 TOPIC 02/14/20 20:00 05/14/20 19:59 03/06/20 20:10 Dexamethasone Sodium Phosphate (Decadron 10mg/ ml Inj) 6 mg DAILY IV 02/27/20 09:00 03/08/20 08:59 03/07/20 08:29 Dextrose 1,000 ml @ 75 mls/hr [id number] IV 03/06/20 18:30 04/05/20 18:29 03/07/20 00:56 Dextrose (Dextrose 50%) 25 ml Q30M PRN IV Hypoglycemia 02/05/20 13:15 05/05/20 13:14 Dextrose (Dextrose 50%) 50 ml Q30M PRN IV Hypoglycemia 02/05/20 13:15 05/05/20 13:14 Ibuprofen (Motrin) 600 mg TIDPRN PRN ORAL Breakthrough Pain 02/17/20 19:30 03/18/20 19:29 02/21/20 20:56 Micafungin Sodium 100 mg/Sodium Chloride 100 ml @ 100 mls/hr Q24H IVPB 03/02/20 14:00 03/09/20 13:59 03/07/20 14:33 Promethazine HCl/ Codeine (Phenergan with Codeine) 5 ml Q4H PRN ORAL For Cough 02/22/20 12:15 03/23/20 12:14 02/26/20 04:05 Trimethoprim/ Sulfamethoxazole (Bactrim-DS) 1 tab Q24HRS ORAL 03/03/20 20:00 03/10/20 19:59 03/06/20 20:11 Kisha Salazar MD Mar 07, 2020 18:18
--- NOTE | 2020-03-07 18:56 | Pulmonology Progress Note ---
Subjective ROS Limited/Unobtainable: No Interval Events: tolerating BiPAP Constitutional: Reports: other - not eaating well per RN, + bipap ; Denies: fever HEENT: Repors: no symptoms Respiratory: Reports: dry cough, shortness of breath Cardiovascular: Denies: no symptoms, chest pain, palpitations, other Gastrointestinal/Abdominal: Denies: nausea, vomiting, diarrhea Psychiatric: Denies: depression Skin: Denies: rash Musculoskeletal: Denies: pain Allergies: Coded Allergies: No Known Allergies (Unverified , 02/05/20) Objective Last 24 Hour Vital Signs Date Time Temp Pulse Resp B/P (MAP) Pulse Ox O2 Delivery O2 Flow Rate FiO2 03/07/20 17:19 87 139/97 03/07/20 16:00 97.1 88 24 139/97 (111) 89 03/07/20 16:00 Bi-pap 100.0 Bi-pap Bi-pap 03/07/20 16:00 100 03/07/20 16:00 87 03/07/20 15:05 84 28 92 100 03/07/20 12:31 72 03/07/20 12:00 Bi-pap 100.0 Bi-pap Bi-pap 03/07/20 12:00 98.0 84 22 138/80 (99) 88 03/07/20 12:00 100 03/07/20 11:05 92 27 89 100 03/07/20 08:39 95 03/07/20 08:30 97 128/84 03/07/20 08:00 98.4 84 26 128/76 (93) 87 03/07/20 08:00 Bi-pap 100.0 Bi-pap Bi-pap 03/07/20 08:00 100 03/07/20 07:42 98 25 91 100 03/07/20 04:00 98.1 79 23 131/94 (106) 91 03/07/20 04:00 100 03/07/20 04:00 Bi-pap 100.0 Bi-pap Bi-pap 03/07/20 04:00 95 03/07/20 03:05 89 27 90 100 03/07/20 00:00 97.5 88 28 149/102 (118) 93 03/07/20 00:00 89 03/07/20 00:00 Bi-pap 100.0 Bi-pap Bi-pap 03/07/20 00:00 100 03/06/20 23:15 89 26 91 100 03/06/20 20:00 Bi-pap 100.0 Bi-pap Bi-pap 03/06/20 20:00 97.0 73 21 128/76 (93) 96 03/06/20 20:00 69 03/06/20 20:00 100 03/06/20 19:30 80 24 96 100 Intake and Output 03/06/20 03/07/20 19:00 07:00 Intake Total 391.25 ml 1080 ml Output Total 880 ml 400 ml Balance -488.75 ml 680 ml Intake Oral 350 ml 200 ml IV Total 41.25 ml 880 ml Output Urine Total 880 ml 400 ml # Voids 2 3 General Appearance: WD/WN, no acute distress HEENT: normocephalic, atraumatic Respiratory: chest wall non-tender Cardiovascular: normal rate, regular rhythm Abdomen: normal bowel sounds, soft, non tender, other - obese Laboratory Tests 03/07/20 05:00: White Blood Count 14.0H, Red Blood Count 4.89, Hemoglobin 13.9L, Hematocrit 44.3, Mean Corpuscular Volume 91, Mean Corpuscular Hemoglobin 28.5, Mean Corpuscular Hemoglobin Concent 31.4L, Red Cell Distribution Width 16.1H, Platelet Count 234, Mean Platelet Volume 8.0, Neutrophils (%) (Auto) , Lymphocytes (%) (Auto) , Monocytes (%) (Auto) , Eosinophils (%) (Auto) , Basophils (%) (Auto) , Differential Total Cells Counted 100, Neutrophils % (Manual) 94H, Lymphocytes % (Manual) 3L, Monocytes % (Manual) 2, Eosinophils % (Manual) 1, Basophils % (Manual) 0, Band Neutrophils 0, Platelet Estimate Adequate, Platelet Morphology Normal, Red Blood Cell Morphology Normal 03/07/20 11:00: Sodium Level 157H, Potassium Level 4.2, Chloride Level 123H, Carbon Dioxide Level 28, Anion Gap 6, Blood Urea Nitrogen 42H, Creatinine 1.4H, Estimat Glomerular Filtration Rate 51.4, Glucose Level 121H, Calcium Level 9.0, Total Bilirubin 0.8, Aspartate Amino Transf (AST/SGOT) 39H, Alanine Aminotransferase (ALT/SGPT) 30, Alkaline Phosphatase 142H, Total Protein 7.6, Albumin 2.3L, Globulin 5.3, Albumin/Globulin Ratio 0.4L Current Medications Medications (Trade) Dose Ordered Sig/Dennis Route PRN Reason Start Time Stop Time Status Last Admin Dose Admin Acetaminophen (Tylenol) 650 mg Q4H PRN ORAL Pain (1-3) 02/09/20 08:30 03/10/20 08:29 02/23/20 09:00 Amlodipine Besylate (Norvasc) 5 mg BID ORAL 02/10/20 09:00 03/11/20 08:59 03/07/20 17:19 Bisacodyl (Dulcolax) 10 mg HSPRN PRN RECTAL Constipation 02/05/20 13:15 05/05/20 13:14 Cefazolin Sodium 50 ml @ 100 mls/hr Q8H IV 03/06/20 08:00 03/13/20 07:59 03/07/20 17:19 Chlorhexidine Gluconate (Marlen-Hex 2%) 1 applic DAILY@2000 TOPIC 02/14/20 20:00 05/14/20 19:59 03/06/20 20:10 Dexamethasone Sodium Phosphate (Decadron 10mg/ ml Inj) 6 mg DAILY IV 02/27/20 09:00 03/08/20 08:59 03/07/20 08:29 Dextrose 1,000 ml @ 75 mls/hr [id number] IV 03/06/20 18:30 04/05/20 18:29 03/07/20 00:56 Dextrose (Dextrose 50%) 25 ml Q30M PRN IV Hypoglycemia 02/05/20 13:15 05/05/20 13:14 Dextrose (Dextrose 50%) 50 ml Q30M PRN IV Hypoglycemia 02/05/20 13:15 05/05/20 13:14 Ibuprofen (Motrin) 600 mg TIDPRN PRN ORAL Breakthrough Pain 02/17/20 19:30 03/18/20 19:29 02/21/20 20:56 Micafungin Sodium 100 mg/Sodium Chloride 100 ml @ 100 mls/hr Q24H IVPB 03/02/20 14:00 03/09/20 13:59 03/07/20 14:33 Promethazine HCl/ Codeine (Phenergan with Codeine) 5 ml Q4H PRN ORAL For Cough 02/22/20 12:15 03/23/20 12:14 02/26/20 04:05 Trimethoprim/ Sulfamethoxazole (Bactrim-DS) 1 tab Q24HRS ORAL 03/03/20 20:00 03/10/20 19:59 03/06/20 20:11 Assessment/Plan Assessment/Plan 1.COVID-19 pneumonia. - last COVID-19 test positive after two negative tests - CTA 02/05/2020 ground-glass and consolidating infiltrates in the dependent portions of both lower lobes and to lesser degree the upper lobes consistent with bilateral pneumonia. No evidence of pulmonary embolus. - CXR 02/17/2020 worsening bilateral infiltrates; on broad spectrum abx per ID - CT chest 02/18 shows Increased extensive patchy ground-glass opacities and densities throughout the lungs, suggestive of Covid 19 infection. - currently on BiPAP. Saturations 90%. - Mycoplasma pneumoniae IgG 273; M. pneumoniae IgM titer within normal limits - D-dimer 0.90; on full dose Lovenox - on decadron per ID due to worsening hypoxia; will dc and start Solumedrol - s/p remdesivir - now off Lasix per Dr. Awan due to elevated Na - is now net I/O negative 2. Initial negative rapid COVID-19 gene assay.- however repeat COVID-19 test positive 3. Smoker. 4. DVT ppx - on lovenox 5. Hypertension - on hydralazine, and norvasc - On cardiac diet 6. Blood culture positive for gram positive cocci staph aureus - on Abx - CT abd/pelvis showed no abscess per ID - TTE/ FERYN held off due to COVID-19 status - PICC line in place (Patient was seen earlier today. Signature timestamp does not reflect patient encounter time) John Mata MD . John Mata MD Mar 07, 2020 18:56
--- NOTE | 2020-03-07 19:05 | NUR ---
NURSE HAND-OFF REPORT: Important Events on Shift:NA Patient Status: Unstable O2 sat Diet: Cardiac diet Pending Orders: NA Pending Results/Labs:NA Pending MD notification:NA Latest Vital Signs: Temperature 97.1 , Pulse 87 , B/P 139 /97 , Respiratory Rate 24 , O2 SAT 89 , Room Air, O2 Flow Rate 100.0 . Vital Sign Comment: Unstable O2 sat EKG Rhythm: Sinus Rhythm Rhythm change?: N MD Notified?: N -Dr. Emperatriz INTERIANO Response: Message left await call Latest Hassan Fall Score: 45 Fall Risk: High Risk Safety Measures: Call light Within Reach, Bed Alarm Zone 1, Side Rails Side Rails x2, Bed position Low and Locked. Fall Precautions: Yellow Socks Patient Fall Education Report given to PRIYANKA Connor.
[2020-03-07] MEDS: Dyna-Hex 2% Top Sol 2oz TOPIC SCH (19:29)
[2020-03-07] MEDS: Solu-MEDROL 40mg Inj IVP SCH (19:29)
--- NOTE | 2020-03-07 19:46 | NUR ---
NURSE NOTES: Report received from PRIYANKA Marie. Observed pt lying in the bed. Denies any pain at this time. SR on cardiac care nurse. On bipap 20/10, 100%, saturating at 93%. PICC on L UA, intact, running D5 at 75cc/hr. Bed in the lowest position. Side rail up x3. Will continue to monitor.
[2020-03-07 20:00] VITALS: BP 150/94
[2020-03-07] MEDS: Bactrim-DS 1 tab ORAL SCH (20:00)
--- NOTE | 2020-03-07 22:15 | Cardiology Progress Note ---
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 Observed pt lying in the bed. Denies any pain at this time. SR on compliance monitor. On bipap 20/10, 100%, saturating at 93%. PICC on L UA, intact, running D5 at 75cc/hr. Objective Last 24 Hour Vital Signs Date Time Temp Pulse Resp B/P (MAP) Pulse Ox O2 Delivery O2 Flow Rate FiO2 03/07/20 20:00 Bi-pap 100.0 Bi-pap Bi-pap 03/07/20 20:00 82 03/07/20 20:00 100 03/07/20 20:00 97.9 79 27 150/94 (112) 90 03/07/20 19:20 83 26 92 100 03/07/20 17:19 87 139/97 03/07/20 16:00 97.1 88 24 139/97 (111) 89 03/07/20 16:00 Bi-pap 100.0 Bi-pap Bi-pap 03/07/20 16:00 100 03/07/20 16:00 87 03/07/20 15:05 84 28 92 100 03/07/20 12:31 72 03/07/20 12:00 Bi-pap 100.0 Bi-pap Bi-pap 03/07/20 12:00 98.0 84 22 138/80 (99) 88 03/07/20 12:00 100 03/07/20 11:05 92 27 89 100 03/07/20 08:39 95 03/07/20 08:30 97 128/84 03/07/20 08:00 98.4 84 26 128/76 (93) 87 03/07/20 08:00 Bi-pap 100.0 Bi-pap Bi-pap 03/07/20 08:00 100 03/07/20 07:42 98 25 91 100 03/07/20 04:00 98.1 79 23 131/94 (106) 91 03/07/20 04:00 100 03/07/20 04:00 Bi-pap 100.0 Bi-pap Bi-pap 03/07/20 04:00 95 03/07/20 03:05 89 27 90 100 03/07/20 00:00 97.5 88 28 149/102 (118) 93 03/07/20 00:00 89 03/07/20 00:00 Bi-pap 100.0 Bi-pap Bi-pap 03/07/20 00:00 100 03/06/20 23:15 89 26 91 100 Intake and Output 03/06/20 03/07/20 19:00 07:00 Intake Total 391.25 ml 1080 ml Output Total 880 ml 400 ml Balance -488.75 ml 680 ml Intake Oral 350 ml 200 ml IV Total 41.25 ml 880 ml Output Urine Total 880 ml 400 ml # Voids 2 3 Laboratory Tests Test 03/07/20 05:00 03/07/20 11:00 White Blood Count 14.0 K/UL (4.8-10.8) H Red Blood Count 4.89 M/UL (4.70-6.10) Hemoglobin 13.9 G/DL (14.2-18.0) L Hematocrit 44.3 % (42.0-52.0) Mean Corpuscular Volume 91 FL (80-99) Mean Corpuscular Hemoglobin 28.5 PG (27.0-31.0) Mean Corpuscular Hemoglobin Concent 31.4 G/DL (32.0-36.0) L Red Cell Distribution Width 16.1 % (11.6-14.8) H Platelet Count 234 K/UL (150-450) Mean Platelet Volume 8.0 FL (6.5-10.1) Neutrophils (%) (Auto) % (45.0-75.0) Lymphocytes (%) (Auto) % (20.0-45.0) Monocytes (%) (Auto) % (1.0-10.0) Eosinophils (%) (Auto) % (0.0-3.0) Basophils (%) (Auto) % (0.0-2.0) Differential Total Cells Counted 100 Neutrophils % (Manual) 94 % (45-75) H Lymphocytes % (Manual) 3 % (20-45) L Monocytes % (Manual) 2 % (1-10) Eosinophils % (Manual) 1 % (0-3) Basophils % (Manual) 0 % (0-2) Band Neutrophils 0 % (0-8) Platelet Estimate Adequate Platelet Morphology Normal Red Blood Cell Morphology Normal Sodium Level 157 MMOL/L (136-145) H Potassium Level 4.2 MMOL/L (3.5-5.1) Chloride Level 123 MMOL/L (98-107) H Carbon Dioxide Level 28 MMOL/L (21-32) Anion Gap 6 mmol/L (5-15) Blood Urea Nitrogen 42 mg/dL (7-18) H Creatinine 1.4 MG/DL (0.55-1.30) H Estimat Glomerular Filtration Rate 51.4 mL/min (>60) Glucose Level 121 MG/DL (74-106) H Calcium Level 9.0 MG/DL (8.5-10.1) Total Bilirubin 0.8 MG/DL (0.2-1.0) Aspartate Amino Transf (AST/SGOT) 39 U/L (15-37) H Alanine Aminotransferase (ALT/SGPT) 30 U/L (12-78) Alkaline Phosphatase 142 U/L (46-116) H Total Protein 7.6 G/DL (6.4-8.2) Albumin 2.3 G/DL (3.4-5.0) L Globulin 5.3 g/dL Albumin/Globulin Ratio 0.4 (1.0-2.7) L Objective pt in covid 19 isoaltion with acute infection per ID Respiratory/Chest: no accessory muscle use, crackles/rales, rhonchi - bilaterally Cardiovascular: normal rate, regular rhythm, no gallop/murmur, no JVD Abdomen: normal bowel sounds, soft, non tender, no organomegaly, non distended Genitourinary: other - no joseph Extremities: no cyanosi Manan Awan MD Mar 07, 2020 22:15
[2020-03-08] VITALS: BP 135/102
[2020-03-08] MEDS: ceFAZolin 2gm/50ml Premix 50 ML IV SCH ×4 (00:19→23:54)
--- NOTE | 2020-03-08 00:49 | NUR ---
NURSE NOTES: Oral care given. Pt not tolerating NRB. Noted pt desaturating to 70s w/o bipap. Observed pt recover back with bipap, saturating at 92 % at this time.
--- NOTE | 2020-03-08 02:08 | Cardiology Report ---
APPROVED REPORT EKG Measurement Heart [id number] ME 126P52 [id number] <Conclusion> Normal sinus rhythm with sinus arrhythmia Nonspecific T wave abnormality Abnormal ECG
--- NOTE | 2020-03-08 02:11 | Cardiology Report ---
APPROVED REPORT EXAM: Two-dimensional and M-mode echocardiogram with Doppler and color Doppler. INDICATION Vegetation M-Mode DIMENSIONS IVSd1.1 (0.7-1.1cm)Left Atrium (MM)4.4 (1.6-4.0cm) LVDd4.3 (3.5-5.6cm)Aortic Root3.4 (2.0-3.7cm) PWd1.1 (0.7-1.1cm)Aortic Cusp Exc.1.9 (1.5-2.0cm) IVSs1.7 cmEPSS0.7 (>1.0cm) LVDs2.6 (2.5-4.0cm) PWs1.4 cm Other Information Technically limited study due to body habitus and poor valvular definition. <Conclusion> Normal left ventricular chamber size, systolic function to extent visualized. Left ventricular ejection fraction estimated to be 60 %. Study quality precludes accurate assessment of regional wall motion. No left ventricular hypertrophy. Small pericardial effusion along the RV free wall. Mild left atrial enlargement. Right cardiac chamber sizes are within normal limits. Focal aortic valve sclerosis with adequate cusp excursion. Thickened mitral valve leaflets with normal excursion. Mitral annulus and aortic root calcification. Pulmonic valve not well visualized. Normal tricuspid valve structure. Subcostal view not well visualized. IVC unobtainable. A color flow and spectral Doppler study was performed and revealed: No aortic regurgitation. Trace mitral regurgitation. Mitral diastolic velocities suggest reduced left ventricular relaxation c/w mild LV diastolic dysfunction (Grade I ). Trace tricuspid regurgitation. Tricuspid systolic velocities suggests peak right ventricular systolic pressure of 14 mmHg. No pulmonic regurgitation present.
--- NOTE | 2020-03-08 02:13 | Cardiology Report ---
APPROVED REPORT EKG Measurement Heart [id number] <Conclusion> Normal sinus rhythm Nonspecific ST abnormality Abnormal ECG
[2020-03-08 04:00] VITALS: BP 150/113
[2020-03-08 06:06] LABS: HEMOGLOBIN 14.7 G/DL (14.2-18.0); MEAN CORPUSCULAR VOLUME 90 FL (80-99); PLATELET COUNT 227 K/UL (150-450); RED BLOOD COUNT 5.22 M/UL (4.70-6.10); WHITE BLOOD COUNT 12.9 K/UL (4.8-10.8)
[2020-03-08 06:33] LABS: ALBUMIN 2.2 G/DL (3.4-5.0); ALBUMIN/GLOBULIN RATIO 0.5 (1.0-2.7); BILIRUBIN,TOTAL 0.4 MG/DL (0.2-1.0); CALCIUM 8.8 MG/DL (8.5-10.1); CREATININE 1.4 MG/DL (0.55-1.30); POTASSIUM 4.2 MMOL/L (3.5-5.1)
[2020-03-08] MEDS: Solu-MEDROL 40mg Inj IVP SCH ×3 (06:35→22:35)
--- NOTE | 2020-03-08 07:15 | NUR ---
NURSE NOTES: Received report from PRIYANKA Connor
--- NOTE | 2020-03-08 07:59 | NUR ---
NURSE HAND-OFF REPORT: Important Events on Shift: On bipap, tolerating but noted desaturating when off the bipap. Patient Status: saturating 88-95% when calm. Diet: refusing diet. Pending Orders: [] Pending Results/Labs:[] Pending MD notification:[] Latest Vital Signs: Temperature 98.0 , Pulse 143 , B/P 150 /113 , Respiratory Rate 24 , O2 SAT 92 , Room Air, O2 Flow Rate 100.0 . Vital Sign Comment: [] EKG Rhythm: Atrial Fibrillation Rhythm change?: Courtney INTERIANO Notified?: Y -Dr.Toluie INTERIANO Response: Message left await call Latest Hassan Fall Score: 45 Fall Risk: High Risk Safety Measures: Call light Within Reach, Bed Alarm Zone 1, Side Rails Side Rails x2, Bed position Low and Locked. Fall Precautions: Yellow Socks Patient Fall Education Report given to PRIYANKA Nair.
[2020-03-08 08:00] VITALS: BP 151/93
--- NOTE | 2020-03-08 08:00 | NUR ---
NURSE NOTES: Patient is alert, no signs of grimacing or distress. Patient is on BiPap 20/10 FiO2 100%. Saturating in the low 90s. Patient refused breakfast - cardiac diet. Patient has a PICC line WAYNE running D5 at 100 mL/hr, patent and intact. HOB is elevated, bed is on lowest position, locked, side rails up, call light within reach. Patient will continue to be monitored.
--- NOTE | 2020-03-08 10:28 | Pulmonology Progress Note ---
Subjective ROS Limited/Unobtainable: No Interval Events: tolerating BiPAP but desaturates when off BiPAP Constitutional: Reports: other - not eaating well per RN, + bipap ; Denies: fever HEENT: Repors: no symptoms Respiratory: Reports: dry cough, shortness of breath Cardiovascular: Denies: no symptoms, chest pain, palpitations, other Gastrointestinal/Abdominal: Denies: nausea, vomiting, diarrhea Psychiatric: Denies: depression Skin: Denies: rash Musculoskeletal: Denies: pain Allergies: Coded Allergies: No Known Allergies (Unverified , 02/05/20) Objective Last 24 Hour Vital Signs Date Time Temp Pulse Resp B/P (MAP) Pulse Ox O2 Delivery O2 Flow Rate FiO2 03/08/20 09:00 71 151/93 03/08/20 08:00 Bi-pap 100.0 Bi-pap Bi-pap 03/08/20 08:00 98.2 71 21 151/93 (112) 91 03/08/20 08:00 100 03/08/20 07:38 85 03/08/20 04:00 143 03/08/20 04:00 98.0 79 24 150/113 (125) 92 03/08/20 04:00 100 03/08/20 04:00 Bi-pap 100.0 Bi-pap Bi-pap 03/08/20 02:56 70 22 94 100 03/08/20 00:00 84 03/08/20 00:00 Bi-pap 100.0 Bi-pap Bi-pap 03/08/20 00:00 98.1 84 24 135/102 (113) 93 03/07/20 22:48 84 31 90 100 03/07/20 20:00 Bi-pap 100.0 Bi-pap Bi-pap 03/07/20 20:00 82 03/07/20 20:00 100 03/07/20 20:00 97.9 79 27 150/94 (112) 90 03/07/20 19:20 83 26 92 100 03/07/20 17:19 87 139/97 03/07/20 16:00 97.1 88 24 139/97 (111) 89 03/07/20 16:00 Bi-pap 100.0 Bi-pap Bi-pap 03/07/20 16:00 100 03/07/20 16:00 87 1/5/21 15:05 84 28 92 100 03/07/20 12:31 72 03/07/20 12:00 Bi-pap 100.0 Bi-pap Bi-pap 03/07/20 12:00 98.0 84 22 138/80 (99) 88 03/07/20 12:00 100 03/07/20 11:05 92 27 89 100 Intake and Output 03/07/20 03/08/20 19:00 07:00 Intake Total 1040 ml 1000 ml Output Total 700 ml 600 ml Balance 340 ml 400 ml Intake Oral 240 ml 100 ml IV Total 800 ml 900 ml Output Urine Total 700 ml 600 ml # Voids 2 3 Objective 03/08 saturating in the low 90s on BiPAP 03/06 saturating at 85-88% on BiPAP 03/05 saturating 77-88% on BiPAP 03/04 now saturating at 89-90% on BiPAP 03/03 saturating in the low 80s on BiPAP 02/28 saturating 93% on BiPAP 02/23 saturating 94% on BiPAP 02/22 tolerating BiPAP, saturating at 90% 02/21 now on BiPAP, saturating at 95% 02/18 still on 15L NRB mask saturating 88-93% 02/17 now on 15L NRB mask saturating at 91% 02/17/2020 now on 2 lpm NC 02/16/2020 no change 02/15/2020 no major change 02/14/2020 saturating well on RAD; NAD 02/13/2020 pt asleep; saturating well on RA 02/12/2020 sitting up in a chair; saturating well on RA 02/11/2020 back on isolation due to COVID-19 positive status again; currently being worked up for positive blood culture 02/09/2020 off isolation; saturating well on RA 02/08/2020 feeling better; COVID-19 PCR neg 02/07/2020 reports feeling better; COVID-19 PCR pending 02/06/2020 pt laying in bed; reports feeling better General Appearance: WD/WN, no acute distress HEENT: normocephalic, atraumatic Respiratory: chest wall non-tender Cardiovascular: normal rate, regular rhythm Abdomen: normal bowel sounds, soft, non tender, other - obese Laboratory Tests 03/07/20 11:00: Sodium Level 157H, Potassium Level 4.2, Chloride Level 123H, Carbon Dioxide Level 28, Anion Gap 6, Blood Urea Nitrogen 42H, Creatinine 1.4H, Estimat Glomerular Filtration Rate 51.4, Glucose Level 121H, Calcium Level 9.0, Total Bilirubin 0.8, Aspartate Amino Transf (AST/SGOT) 39H, Alanine Aminotransferase (ALT/SGPT) 30, Alkaline Phosphatase 142H, Total Protein 7.6, Albumin 2.3L, Globulin 5.3, Albumin/Globulin Ratio 0.4L 03/08/20 03:10: Sodium Level 157H, Potassium Level 4.2, Chloride Level 121H, Carbon Dioxide Level 29, Anion Gap 7, Blood Urea Nitrogen 44H, Creatinine 1.4H, Estimat Glomerular Filtration Rate 51.4, Glucose Level 136H, Calcium Level 8.8, Total Bi lirubin 0.4, Aspartate Amino Transf (AST/SGOT) 33, Alanine Aminotransferase (ALT/SGPT) 28, Alkaline Phosphatase 121H, Total Protein 7.0, Albumin 2.2L, Globulin 4.8, Albumin/Globulin Ratio 0.5L, White Blood Count 12.9H, Red Blood Count 5.22, Hemoglobin 14.7, Hematocrit 47.0, Mean Corpuscular Volume 90, Mean Corpuscular Hemoglobin 28.2, Mean Corpuscular Hemoglobin Concent 31.3L, Red Cell Distribution Width 15.0H, Platelet Count 227, Mean Platelet Volume 7.7, Neutrophils (%) (Auto) , Lymphocytes (%) (Auto) , Monocytes (%) (Auto) , Eosinophils (%) (Auto) , Basophils (%) (Auto) , Differential Total Cells Counted 100, Neutrophils % (Manual) 94H, Lymphocytes % (Manual) 3L, Monocytes % (Manual) 3, Eosinophils % (Manual) 0, Basophils % (Manual) 0, Band Neutrophils 0, Platelet Estimate Adequate, Platelet Morphology Normal, Hypochromasia 1+, Anisocytosis 1+, Pro-B-Type Natriuretic Peptide 197H Current Medications Medications (Trade) Dose Ordered Sig/Dennis Route PRN Reason Start Time Stop Time Status Last Admin Dose Admin Acetaminophen (Tylenol) 650 mg Q4H PRN ORAL Pain (1-3) 02/09/20 08:30 03/10/20 08:29 02/23/20 09:00 Amlodipine Besylate (Norvasc) 5 mg BID ORAL 02/10/20 09:00 03/11/20 08:59 03/07/20 17:19 Bisacodyl (Dulcolax) 10 mg HSPRN PRN RECTAL Constipation 02/05/20 13:15 05/05/20 13:14 Cefazolin Sodium 50 ml @ 100 mls/hr Q8H IV 03/06/20 08:00 03/13/20 07:59 03/08/20 08:36 Chlorhexidine Gluconate (Marlen-Hex 2%) 1 applic DAILY@2000 TOPIC 02/14/20 20:00 05/14/20 19:59 03/07/20 19:29 Dextrose 1,000 ml @ 75 mls/hr [id number] IV 03/06/20 18:30 04/05/20 18:29 03/07/20 19:29 Dextrose (Dextrose 50%) 25 ml Q30M PRN IV Hypoglycemia 02/05/20 13:15 05/05/20 13:14 Dextrose (Dextrose 50%) 50 ml Q30M PRN IV Hypoglycemia 02/05/20 13:15 05/05/20 13:14 Ibuprofen (Motrin) 600 mg TIDPRN PRN ORAL Breakthrough Pain 02/17/20 19:30 03/18/20 19:29 02/21/20 20:56 Methylprednisolone Sodium Succinate (Solu-MEDROL) 40 mg EVERY 8 HOURS IVP 03/07/20 18:58 06/05/20 18:57 03/08/20 06:35 Micafungin Sodium 100 mg/Sodium Chloride 100 ml @ 100 mls/hr Q24H IVPB 03/02/20 14:00 03/09/20 13:59 03/07/20 14:33 Promethazine HCl/ Codeine (Phenergan with Codeine) 5 ml Q4H PRN ORAL For Cough 02/22/20 12:15 03/23/20 12:14 02/26/20 04:05 Trimethoprim/ Sulfamethoxazole (Bactrim-DS) 1 tab Q24HRS ORAL 03/03/20 20:00 03/10/20 19:59 03/06/20 20:11 Assessment/Plan Assessment/Plan 1.COVID-19 pneumonia. - last COVID-19 test positive after two negative tests - CTA 02/05/2020 ground-glass and consolidating infiltrates in the dependent portions of both lower lobes and to lesser degree the upper lobes consistent with bilateral pneumonia. No evidence of pulmonary embolus. - CXR 02/17/2020 worsening bilateral infiltrates; on broad spectrum abx per ID - CT chest 02/18 shows Increased extensive patchy ground-glass opacities and densities throughout the lungs, suggestive of Covid 19 infection. - currently on BiPAP. Saturations 90%. - Mycoplasma pneumoniae IgG 273; M. pneumoniae IgM titer within normal limits - D-dimer 0.90; on full dose Lovenox - s/p decadron (02/26-03/07) - now on Solu-Medrol (03/07-) - s/p remdesivir - now off Lasix per Dr. Awan due to elevated Na - is now net I/O negative 2. Initial negative rapid COVID-19 gene assay.- however repeat COVID-19 test positive 3. Smoker. 4. DVT ppx - on lovenox 5. Hypertension - on Norvasc 6. Blood culture positive for gram positive cocci staph aureus - on Abx - CT abd/pelvis showed no abscess per ID 7. low appetite; poor oral intake - TPN recommended per nutrition eval - will hold off on TPN for now - needs NG tube placement - will consult GI 8. Leukocytosis - Consider weaning steroids per ID - Started bactrim prophylaxis per ID 9. hypernatremia - initiated D5W HIV antibody 1&2 neg The care for this patient was discussed with my supervising physician Time spent for this case was approximately 31 minutes Edilson Marinelli Mar 08, 2020 10:27
--- NOTE | 2020-03-08 11:06 | General Progress Note ---
Subjective ROS Limited/Unobtainable: Yes Allergies: Coded Allergies: No Known Allergies (Unverified , 02/05/20) Objective Last 24 Hour Vital Signs Date Time Temp Pulse Resp B/P (MAP) Pulse Ox O2 Delivery O2 Flow Rate FiO2 03/08/20 09:00 71 151/93 03/08/20 08:00 Bi-pap 100.0 Bi-pap Bi-pap 03/08/20 08:00 98.2 71 21 151/93 (112) 91 03/08/20 08:00 100 03/08/20 07:38 85 03/08/20 04:00 143 03/08/20 04:00 98.0 79 24 150/113 (125) 92 03/08/20 04:00 100 03/08/20 04:00 Bi-pap 100.0 Bi-pap Bi-pap 03/08/20 02:56 70 22 94 100 03/08/20 00:00 84 03/08/20 00:00 Bi-pap 100.0 Bi-pap Bi-pap 03/08/20 00:00 98.1 84 24 135/102 (113) 93 03/07/20 22:48 84 31 90 100 03/07/20 20:00 Bi-pap 100.0 Bi-pap Bi-pap 03/07/20 20:00 82 03/07/20 20:00 100 03/07/20 20:00 97.9 79 27 150/94 (112) 90 03/07/20 19:20 83 26 92 100 03/07/20 17:19 87 139/97 03/07/20 16:00 97.1 88 24 139/97 (111) 89 03/07/20 16:00 Bi-pap 100.0 Bi-pap Bi-pap 03/07/20 16:00 100 03/07/20 16:00 87 03/07/20 15:05 84 28 92 100 03/07/20 12:31 72 03/07/20 12:00 Bi-pap 100.0 Bi-pap Bi-pap 03/07/20 12:00 98.0 84 22 138/80 (99) 88 03/07/20 12:00 100 03/07/20 11:05 92 27 89 100 Intake and Output 03/07/20 03/08/20 19:00 07:00 Intake Total 1040 ml 1000 ml Output Total 700 ml 600 ml Balance 340 ml 400 ml Intake Oral 240 ml 100 ml IV Total 800 ml 900 ml Output Urine Total 700 ml 600 ml # Voids 2 3 Laboratory Tests 03/08/20 03:10: White Blood Count 12.9H, Red Blood Count 5.22, Hemoglobin 14.7, Hematocrit 47.0, Mean Corpuscular Volume 90, Mean Corpuscular Hemoglobin 28.2, Mean Corpuscular Hemoglobin Concent 31.3L, Red Cell Distribution Width 15.0H, Platelet Count 227, Mean Platelet Volume 7.7, Neutrophils (%) (Auto) , Lymphocytes (%) (Auto) , Monocytes (%) (Auto) , Eosinophils (%) (Auto) , Basophils (%) (Auto) , Differential Total Cells Counted 100, Neutrophils % (Manual) 94H, Lymphocytes % (Manual) 3L, Monocytes % (Manual) 3, Eosinophils % (Manual) 0, Basophils % (Manual) 0, Band Neutrophils 0, Platelet Estimate Adequate, Platelet Morphology Normal, Hypochromasia 1+, Anisocytosis 1+, Sodium Level 157H, Potassium Level 4.2, Chloride Level 121H, Carbon Dioxide Level 29, Anion Gap 7, Blood Urea Nitrogen 44H, Creatinine 1.4H, Estimat Glomerular Filtration Rate 51.4, Glucose Level 136H, Calcium Level 8.8, Total Bilirubin 0.4, Aspartate Amino Transf (AST/SGOT) 33, Alanine Aminotransferase (ALT/SGPT) 28, Alkaline Phosphatase 121H , Pro-B-Type Natriuretic Peptide 197H, Total Protein 7.0, Albumin 2.2L, Globulin 4.8, Albumin/Globulin Ratio 0.5L Height (Feet): 5 Height (Inches): 10.00 Weight (Pounds): 240 General Appearance: lethargic EENT: normal ENT inspection Neck: supple Cardiovascular: tachycardia Respiratory/Chest: decreased breath sounds Abdomen: soft, hypoactive bowel sounds Extremities: non-tender Assessment/Plan Status: not improved, unchanged Assessment/Plan: covid + on BIPAP DM HTN FTT constipation not stable for PEG plan NGT placement and feeding bowel regimen covid care will Da Wilson MD Mar 08, 2020 11:06
--- NOTE | 2020-03-08 11:42 | NUR ---
Diaphragm BuilderParole Agent SI: Respiratory Failure, COVID PNA T 98.2, HR 71, RR 21, BP 151/93 BIPAP 20/10, FiO2 100% O2 sat 95% WBC 12.9, BUN 44, NA+ 157, Alk Phos 121 Cxray 03-06-20 unchanged- bilateral infiltrates IS: Cefazolin IV Lovenox SQ q 12 h Dexamethasone IV QD Micafungin IV q 24 h Bactrim DS PO Step Down Status
--- NOTE | 2020-03-08 11:50 | NUR ---
RD ASSESSMENT & RECOMMENDATIONS SEE CARE ACTIVITY FOR COMPLETE ASSESSMENT DAILY ESTIMATED NEEDS: Needs based on Pulmonary, cardiac 87kg abw 23-28 kcals/kg 6999-1142 total kcals 1.25-1.5 g protein/kg 109-131 g total protein 25-30 mL/kg 7786-5776 total fluid mLs NUTRITION DIAGNOSIS: * Inadequate oral intake R/T clinical and respiratory status as evidenced by COVID-19 ++, on continuous BIPAP, prolonged meal refusals. * Decreased sodium and fat needs r/t HTN and obesity as evidenced by pt w/ cardiac history, elev BP (159/98-> now improved, on BP meds and diuretics), BMI >30, obese per guidelines. (CURRENT DIET: Cardiac + Ensure x3) PO DIET RECOMMENDATIONS: Liberalized REGULAR w/ poor PO at this time (texture per PATIENT TRANSITION SPECIALIST) ENTERAL NUTRITION RECOMMENDATIONS: Glucerna 1.5 goal of 56ml/hr x24 hrs to meet needs to provide 1344ml, 2016 kcal, 111g pro, 1020ml free H2O - If medically able, rec non oral feeds. - GOAL ABOVE IF TOLERATED WITHOUT ASPIRATION/ Otherwise run at rate tolerated to provide partial nutrition and maintain gut integrity. - Start @16ml for 6 hrs, advance as tolerated 10ml/hr q4-6 hrs to goal - Flush per MD. HOB over 30 degrees. - With non oral feeds rec added Vit C . TPN Comment: CONSIDER TPN IF PT CONTINUES ON BIPAP AND UNABLE TO TOLERATE OR REFUSE NGT FEEDS AND CONT W/ POOR PO ADDITIONAL RECOMMENDATIONS: 1) Maintain calibrated bedscale wts; obtain a standing wt as able 2) Obtain HgA1C for eval 3) Monitor PO intake: decreased intake on 02/14 per EMR Refusal of meals x 12 days Non oral feeds if medically appropriate w/ Bipap. 4) Monitor hydration status- off lasix, on D%, unable to tolerate PO 5) Consider TPN w/ poor po and possible aspiration risk on bipap.
[2020-03-08 12:00] VITALS: BP 144/102
[2020-03-08] MEDS: Lactulose 20gm/30ml UDC ORAL SCH ×2 (13:25→18:13)
--- NOTE | 2020-03-08 15:55 | Cardiology Report ---
APPROVED REPORT EKG Measurement Heart [id number] <Conclusion> Normal sinus rhythm with sinus arrhythmia ST & T wave abnormality, consider lateral ischemia Prolonged QT Abnormal ECG
[2020-03-08 16:00] VITALS: BP 162/117
--- NOTE | 2020-03-08 16:11 | NUR ---
NURSE NOTES: Notified YENI Marinelli and left message with Dr. Mata ,spoke to YENI marinelli patient has high risk aspiration ,if fed thru NGT,Dr. Quintero notified-Acknowledged
--- NOTE | 2020-03-08 16:15 | Cardiology Report ---
APPROVED REPORT EKG Measurement Heart [id number] <Conclusion> Normal sinus rhythm Nonspecific ST and T wave abnormality Abnormal ECG
[2020-03-08] MEDS: Docusate 100mg cap ORAL SCH (18:13)
--- NOTE | 2020-03-08 19:35 | NUR ---
NURSE HAND-OFF REPORT: Important Events on Shift: stable Patient Status: Diet: Pending Orders: Pending Results/Labs: Pending MD notification: Latest Vital Signs: Temperature 97.6 , Pulse 70 , B/P 162 /117 , Respiratory Rate 23 , O2 SAT 89 , Room Air, O2 Flow Rate 100.0 . Vital Sign Comment: EKG Rhythm: Sinus Rhythm Rhythm change?: N MD Notified?: Courtney Paige MD Response: Message left await call Latest Hassan Fall Score: 45 Fall Risk: High Risk Safety Measures: Call light Within Reach, Bed Alarm Zone 1, Side Rails Side Rails x2, Bed position Low and Locked. Fall Precautions: Yellow Socks Patient Fall Education Report given to [employer].
--- NOTE | 2020-03-08 19:37 | NUR ---
NURSE NOTES: Received pt and report from PRIYANKA Leahy. Observed pt resting in bed with both eyes open and watching television. Pt is A/Ox4. campaign management senior manager is in placed; pt is NSR. Pt has a WAYNE PICC line double lumen; intact, asymptomatic, and patent; running D5W @75cc/hr. Pt is on BiPAP 20/10, FiO2 100%; sating at 96%. Bed is in the lowest position and locked. Call light and bedside table is within reach. No acute distress noted. Will continue plan of care.
[2020-03-08 20:00] VITALS: BP 141/95
[2020-03-08] MEDS: Dyna-Hex 2% Top Sol 2oz TOPIC SCH (20:19)
[2020-03-08] MEDS: Bactrim-DS 1 tab ORAL SCH (20:44)
[2020-03-08] MEDS: Miralax 17gm pkt ORAL SCH (20:44)
[2020-03-09] VITALS: BP 146/93
--- NOTE | 2020-03-09 01:19 | NUR ---
NURSE NOTES: Observed pt asleep in bed. Pt continues to be on BiPAP 20/10, FiO2 100%; sating at 97%. No distress noted. Will continue plan of care.
[2020-03-09 04:00] VITALS: BP 139/99
[2020-03-09] MEDS: Solu-MEDROL 40mg Inj IVP SCH ×3 (05:46→21:00)
--- NOTE | 2020-03-09 07:25 | NUR ---
NURSE HAND-OFF REPORT: Important Events on Shift: Ni significant changes during event security officer. Pt continues to be on BiPAP 20/10, FiO2 100%; sating at 96-99%. Patient Status: On-going Diet: Cardiac diet Pending Orders: N Pending Results/Labs: AM Labs Pending MD notification: N Latest Vital Signs: Temperature 97.5 , Pulse 59 , B/P 139 /99 , Respiratory Rate 23 , O2 SAT 97 , Room Air, O2 Flow Rate 100.0 . EKG Rhythm: Sinus Rhythm Rhythm change?: N Notified?: Y -Dr.Toluie INTERIANO Response: Message left await call Latest Hassan Fall Score: 45 Fall Risk: High Risk Safety Measures: Call light Within Reach, Bed Alarm Zone 1, Side Rails Side Rails x2, Bed position Low and Locked. Fall Precautions: Yellow Socks Patient Fall Education Report given to PRIYANKA Sorensen.
--- NOTE | 2020-03-09 07:33 | NUR ---
Nursing Note: Pt received from Pee RN. pt in bed awake and resting. bed low and locked, call light within reach. on Biapap 20/12. no complaint of pain or distress.
[2020-03-09 08:00] VITALS: BP 140/96
[2020-03-09] MEDS: ceFAZolin 2gm/50ml Premix 50 ML IV SCH (08:37)
[2020-03-09] MEDS: Lactulose 20gm/30ml UDC ORAL SCH ×3 (09:30→18:00)
--- NOTE | 2020-03-09 09:30 | NUR ---
NURSE NOTES: Medication and oral care done with RT at bedside. Please note a large amount of dried dark red blood was taken out. Given pt desaturation (went down to 88%) and anxiety associated with taking bipap off, will do another round of oral care with next set of med spa manager.
[2020-03-09] MEDS: Docusate 100mg cap ORAL SCH (09:31)
--- NOTE | 2020-03-09 10:13 | Pulmonology Progress Note ---
Subjective ROS Limited/Unobtainable: Yes Interval Events: tolerating BiPAP but desaturates when off BiPAP Constitutional: Reports: other - not eaating well per RN, + bipap ; Denies: fever HEENT: Repors: no symptoms Respiratory: Reports: dry cough, shortness of breath Cardiovascular: Denies: no symptoms, chest pain, palpitations, other Gastrointestinal/Abdominal: Denies: nausea, vomiting, diarrhea Psychiatric: Denies: depression Skin: Denies: rash Musculoskeletal: Denies: pain Allergies: Coded Allergies: No Known Allergies (Unverified , 02/05/20) Objective Last 24 Hour Vital Signs Date Time Temp Pulse Resp B/P (MAP) Pulse Ox O2 Delivery O2 Flow Rate FiO2 03/09/20 09:31 57 140/96 03/09/20 08:00 57 03/09/20 08:00 Bi-pap 100.0 Bi-pap Bi-pap 03/09/20 08:00 100 03/09/20 08:00 97.7 102 20 140/96 (111) 94 03/09/20 07:50 58 18 96 100 03/09/20 04:00 Bi-pap 100.0 Bi-pap Bi-pap 03/09/20 04:00 100 03/09/20 04:00 59 03/09/20 04:00 97.5 88 23 139/99 (112) 97 03/09/20 01:00 66 20 95 100 03/09/20 00:00 97.3 80 22 146/93 (110) 96 03/09/20 00:00 107 03/09/20 00:00 100 03/09/20 00:00 Bi-pap 100.0 Bi-pap Bi-pap 03/08/20 20:00 79 03/08/20 20:00 100 03/08/20 20:00 Bi-pap 100.0 Bi-pap Bi-pap 03/08/20 20:00 97.7 87 25 141/95 (110) 97 03/08/20 19:13 70 23 89 100 03/08/20 18:13 93 162/117 03/08/20 16:00 100 03/08/20 16:00 Bi-pap 100.0 Bi-pap Bi-pap 03/08/20 16:00 97.6 93 26 162/117 (132) 90 03/08/20 15:40 86 26 90 100 03/08/20 15:21 69 03/08/20 12:00 97.3 80 20 144/102 (116) 91 03/08/20 12:00 100 03/08/20 12:00 Bi-pap 100.0 Bi-pap Bi-pap 03/08/20 11:46 81 03/08/20 10:30 83 24 91 100 Intake and Output 03/08/20 03/09/20 19:00 07:00 Intake Total 1050 ml 955 ml Output Total 200 ml 550 ml Balance 850 ml 405 ml Intake Oral 100 ml 130 ml IV Total 950 ml 825 ml Output Urine Total 200 ml 550 ml # Voids 2 # Bowel Movements 3 General Appearance: WD/WN, no acute distress HEENT: normocephalic, atraumatic Respiratory: chest wall non-tender Cardiovascular: normal rate, regular rhythm Abdomen: normal bowel sounds, soft, non tender, other - obese Current Medications Medications (Trade) Dose Ordered Sig/Dennis Route PRN Reason Start Time Stop Time Status Last Admin Dose Admin Acetaminophen (Tylenol) 650 mg Q4H PRN ORAL Pain (1-3) 02/09/20 08:30 03/10/20 08:29 02/23/20 09:00 Amlodipine Besylate (Norvasc) 5 mg BID ORAL 02/10/20 09:00 03/11/20 08:59 03/09/20 09:31 Bisacodyl (Dulcolax) 10 mg HSPRN PRN RECTAL Constipation 02/05/20 13:15 05/05/20 13:14 Cefazolin Sodium 50 ml @ 100 mls/hr Q8H IV 03/06/20 08:00 03/13/20 07:59 03/09/20 08:37 Chlorhexidine Gluconate (Marlen-Hex 2%) 1 applic DAILY@2000 TOPIC 02/14/20 20:00 05/14/20 19:59 03/08/20 20:19 Dextrose 1,000 ml @ 75 mls/hr [id number] IV 03/06/20 18:30 04/05/20 18:29 03/09/20 08:37 Dextrose (Dextrose 50%) 25 ml Q30M PRN IV Hypoglycemia 02/05/20 13:15 05/05/20 13:14 Dextrose (Dextrose 50%) 50 ml Q30M PRN IV Hypoglycemia 02/05/20 13:15 05/05/20 13:14 Docusate Sodium (Colace) 100 mg TWICE A DAY ORAL 03/08/20 18:00 04/07/20 17:59 03/09/20 09:31 Ibuprofen (Motrin) 600 mg TIDPRN PRN ORAL Breakthrough Pain 02/17/20 19:30 03/18/20 19:29 02/21/20 20:56 Lactulose (Cephulac) 20 gm THREE TIMES A DAY ORAL 03/08/20 13:00 04/07/20 12:59 03/09/20 09:30 Methylprednisolone Sodium Succinate (Solu-MEDROL) 40 mg EVERY 8 HOURS IVP 03/07/20 18:58 06/05/20 18:57 03/09/20 05:46 Micafungin Sodium 100 mg/Sodium Chloride 100 ml @ 100 mls/hr Q24H IVPB 03/02/20 14:00 03/09/20 13:59 03/08/20 13:26 Polyethylene Glycol (Miralax) 17 gm BEDTIME ORAL 03/08/20 21:00 04/07/20 20:59 03/08/20 20:44 Promethazine HCl/ Codeine (Phenergan with Codeine) 5 ml Q4H PRN ORAL For Cough 02/22/20 12:15 03/23/20 12:14 02/26/20 04:05 Trimethoprim/ Sulfamethoxazole (Bactrim-DS) 1 tab Q24HRS ORAL 03/03/20 20:00 03/10/20 19:59 03/08/20 20:44 Assessment/Plan Assessment/Plan 1.COVID-19 pneumonia. - last COVID-19 test positive after two negative tests - CTA 02/05/2020 ground-glass and consolidating infiltrates in the dependent portions of both lower lobes and to lesser degree the upper lobes consistent with bilateral pneumonia. No evidence of pulmonary embolus. - CXR 02/17/2020 worsening bilateral infiltrates; on broad spectrum abx per ID - CT chest 02/18 shows Increased extensive patchy ground-glass opacities and densities throughout the lungs, suggestive of Covid 19 infection. - currently on BiPAP. Saturations 90%. - Mycoplasma pneumoniae IgG 273; M. pneumoniae IgM titer within normal limits - D-dimer 0.90; on full dose Lovenox -Discontinued Decadron, now on Solumedrol - s/p remdesivir - now off Lasix per Dr. Awan due to elevated Na - is now net I/O negative -We will start TPN He has had a progressive increase in LDH,-I will discuss about the possibility of pneumocystis with ID. 2. Initial negative rapid COVID-19 gene assay.- however repeat COVID-19 test positive 3. Smoker. 4. DVT ppx - on lovenox 5. Hypertension - on hydralazine, and norvasc - On cardiac diet 6. Blood culture positive for gram positive cocci staph aureus - on Abx - CT abd/pelvis showed no abscess per ID - TTE/ FERNY held off due to COVID-19 status - PICC line in place (Patient was seen earlier today. Signature timestamp does not reflect patient encounter time) John Mata MD . John Mata MD Mar 09, 2020 10:13
[2020-03-09] MEDS ORDERED: Bactrim-DS 1 tab ORAL SCH (10:15)
--- NOTE | 2020-03-09 10:28 | Consultation ---
Consult Note Consult Note I am asked to evaluate the patient at the request of Dr. Mata for fluid and electrolyte management and TPN orders Records reviewed Discussed with RN Labs and history reviewed Patient is continuously on BiPAP HPI Patient is a 64-year-old male denies any significant past medical history presents to the ER complaining of chest pain. 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 He states it is diffuse. He states that it is intermittent. He denies any dizziness, diaphoresis, fever or chills. He denies any cough. He states that the pain is exacerbated by movement and deep inspiration. He complains of paresthesias. He denies any focal weakness. He denies any history of similar symptoms in the past. Patient states that he is a current smoker. He has not taken any medications for his pain. Allergies: Coded Allergies: No Known Allergies (Unverified , 02/05/20) COVID-19 Screening Contact w/high risk pt: Yes Experienced COVID-19 symptoms?: No COVID-19 Testing performed DRAMA CRITIC: No PHYSICAL EXAMINATION: VITAL SIGNS: Temperature is 98.0, pulse rate is 70, respiratory rate 20, blood pressure 161/96, saturation 99% on room air. GENERAL: The patient is alert, responsive, oriented x3. He is in COVID isolation. HEAD AND NECK: Oral exam, no thrush. Eye exam, no icterus. Normocephalic. Neck is supple. No JVD. HEART: Regular. No gallop or murmur. No friction rub. LUNGS: Few bilateral rhonchi. Possible rales. On BiPAP ABDOMEN: Soft. Positive bowel sounds. Nontender. SKIN: No rash. MUSCULOSKELETAL: No effusion. Legs are without cellulitis. PERIPHERAL VASCULAR: No cyanosis or gangrene. No septic arthritis. GENITOURINARY: No Brownlee. LINE SITES: Without phlebitis. NEUROLOGIC: Intact. Nonfocal. Alert and oriented. . . Assessment/Plan Azotemia, hypernatremia Hypoalbuminemia, malnutrition Staff Otilia bacteremia COVID-19 isolation, pneumonia, bilateral infiltrate Hypertension Diabetes mellitus History of smoking D5W 100 cc an hour Monitor electrolytes renal parameters TPN and Intralipid ordered Will follow Continue per consultants Dietary consult requested Rubin Cooper MD Mar 09, 2020 10:28
--- NOTE | 2020-03-09 11:20 | NUR ---
RD ASSESSMENT & RECOMMENDATIONS SEE CARE ACTIVITY FOR COMPLETE ASSESSMENT DAILY ESTIMATED NEEDS: Needs based on Pulmonary, cardiac 87kg abw 23-28 kcals/kg 3251-9589 total kcals 1.25-1.5 g protein/kg 109-131 g total protein 25-30 mL/kg 4176-7190 total fluid mLs NUTRITION DIAGNOSIS: * Inadequate oral intake R/T clinical and respiratory status as evidenced by COVID-19 ++, on continuous BIPAP, prolonged meal refusals. * Decreased sodium and fat needs r/t HTN and obesity as evidenced by pt w/ cardiac history, elev BP (159/98-> now improved, on BP meds and diuretics), BMI >30, obese per guidelines. CURRENT DIET: Cardiac + Ensure x3 PO DIET RECOMMENDATIONS: Liberalized REGULAR w/ poor PO at this time (texture per COST CONTROL SPECIALIST) ENTERAL NUTRITION RECOMMENDATIONS: Glucerna 1.5 goal of 56ml/hr x24 hrs to meet needs to provide 1344ml, 2016 kcal, 111g pro, 1020ml free H2O - If medically able, rec non oral feeds. - GOAL ABOVE IF TOLERATED WITHOUT ASPIRATION/ Otherwise run at rate tolerated to provide partial nutrition and maintain gut integrity. - Start @16ml for 6 hrs, advance as tolerated 10ml/hr q4-6 hrs to goal - Flush per MD. HOB over 30 degrees. - With non oral feeds rec added Vit C . PARENTERAL NUTRITION RECOMMENDATIONS: D/AA Rate: 75 IL Rate: 10 Total Rate: 85 Volume: 2040 % Dextrose: 20 % AA: 5.5 Energy (kcals/kg): 2100 Protein (g/kg protein): 99 Nonprotein KCALS: 1704 GIR (mg CHO/kg/min): 2.9 % Fat KCALS: 23 NPC: N Ratio: 108:1 TPN Comment: - D20 + AA5.5 @75ml/hr with IL20% @10ml/hr- all 3:1 - Start @LOW RATE 15ml/hr for 6 hrs, advance by 15ml/hr q4-6 hrs - Monitor BG, need for niss - Check lytes daily, replete as needed ADDITIONAL RECOMMENDATIONS: 1) Maintain calibrated bedscale wts; obtain a standing wt as able 2) Obtain HgA1C for eval 3) Monitor PO intake: decreased intake on 02/14 per EMR Refusal of meals x 12 days Non oral feeds if medically appropriate w/ Bipap. 4) Monitor hydration status- off lasix, on D%, unable to tolerate PO 5) Consider TPN -> now ordered 03/09
[2020-03-09 12:00] VITALS: BP 149/97
--- NOTE | 2020-03-09 12:06 | NUR ---
Senior Benefits AnalystHead Start Coordinator SI: Respiratory Failure, COVID PNA T 97.7, HR 102, RR 20, BP 140/96 BIPAP 20/10, FiO2 100% O2 sat 94% WBC 12.9, BUN 44, Creatinine 1.4 NA+ 157, Alk Phos 121 Cxray 03-06-20 unchanged- bilateral infiltrates IS: Bactrim IV q 8 hrs Cefazolin IV q 8 hrs Lovenox SQ q 12 h solu-medrol IVP q h hrs Micafungin IV q 24 h TPN q 24 h Step Down Status
--- NOTE | 2020-03-09 14:02 | General Progress Note ---
Subjective ROS Limited/Unobtainable: No Allergies: Coded Allergies: No Known Allergies (Unverified , 02/05/20) Objective Last 24 Hour Vital Signs Date Time Temp Pulse Resp B/P (MAP) Pulse Ox O2 Delivery O2 Flow Rate FiO2 03/09/20 12:00 100 03/09/20 12:00 58 03/09/20 12:00 97.9 104 20 149/97 (114) 94 03/09/20 12:00 Bi-pap 100.0 Bi-pap Bi-pap 03/09/20 11:45 70 16 98 100 03/09/20 09:31 57 140/96 03/09/20 08:00 57 03/09/20 08:00 Bi-pap 100.0 Bi-pap Bi-pap 03/09/20 08:00 100 03/09/20 08:00 97.7 102 20 140/96 (111) 94 03/09/20 07:50 58 18 96 100 03/09/20 04:00 Bi-pap 100.0 Bi-pap Bi-pap 03/09/20 04:00 100 03/09/20 04:00 59 03/09/20 04:00 97.5 88 23 139/99 (112) 97 03/09/20 01:00 66 20 95 100 03/09/20 00:00 97.3 80 22 146/93 (110) 96 03/09/20 00:00 107 03/09/20 00:00 100 03/09/20 00:00 Bi-pap 100.0 Bi-pap Bi-pap 03/08/20 20:00 79 03/08/20 20:00 100 03/08/20 20:00 Bi-pap 100.0 Bi-pap Bi-pap 03/08/20 20:00 97.7 87 25 141/95 (110) 97 03/08/20 19:13 70 23 89 100 03/08/20 18:13 93 162/117 03/08/20 16:00 100 03/08/20 16:00 Bi-pap 100.0 Bi-pap Bi-pap 03/08/20 16:00 97.6 93 26 162/117 (132) 90 03/08/20 15:40 86 26 90 100 03/08/20 15:21 69 Intake and Output 03/08/20 03/09/20 19:00 07:00 Intake Total 1050 ml 955 ml Output Total 200 ml 550 ml Balance 850 ml 405 ml Intake Oral 100 ml 130 ml IV Total 950 ml 825 ml Output Urine Total 200 ml 550 ml # Voids 2 # Bowel Movements 3 Height (Feet): 5 Height (Inches): 10.00 Weight (Pounds): 240 General Appearance: no apparent distress EENT: normal ENT inspection Neck: supple Cardiovascular: normal rate Respiratory/Chest: decreased breath sounds Abdomen: normal bowel sounds, non tender, soft Extremities: non-tender Assessment/Plan Status: not improved, unchanged Assessment/Plan: covid + on BIPAP DM HTN FTT constipation not stable for PEG could not tolerate NGT placement pending TPN bowel regimen covid care will fu Da Quintero MD Mar 09, 2020 14:02
[2020-03-09] MEDS ORDERED: NS 275ml ONE (14:11)
[2020-03-09 16:00] VITALS: BP 150/100
[2020-03-09] MEDS: Bactrim 20ml in D5W 550ml IV SCH ×2 (16:27→23:52)
--- NOTE | 2020-03-09 16:28 | NUR ---
NURSE NOTES: After 150/100 bp, contacted Dr. de luna to ask for prn IV antihypertensive since pt ryanley not getting entire crushed dose as swallowing is poor and he is not able to tolerate more than one bite of medication. awaiting response.
--- NOTE | 2020-03-09 16:29 | Infectious Diseases Prog Note ---
Assessment/Plan Assessment/Plan ASSESSMENT AND PLAN: 1. staph aureus bacteremia/mssa, ? source, ? endocarditis, sepsis, leukocytosis, ? CAP, PJP less likely with HIV negative and steroids < 1 month covid-19 +, hypoxia, sob, chest x-ray worse, ? PE, ? HCAP/aspiration pna recurrent fevers - ? fungal, ? OI leukocytosis noted - ? new infection, ? steroids cocci serology negative, legionella negative, beta 1,3 D-glucan wnl, Il-16 - 13.7 - s/p micafungin - start bactrim for empiric pneumocystis pna treatment - d/w Dr. Mata - day # 28 mssa tx post neg blood cultures - will be covered by bactrim also - saturations improved, on solumedrol - monitor hypoxia, labs and chest x-ray - CT imaging noted - leukocytosis noted and likely secondary to steroids, cultures negative, fevers better - TPN to be started, d/w RN 2. covid-19 isolation 3. Hypertension history. Blood pressure treatment primary care team. 4. Elevated blood sugars. Blood sugar treatment per primary care team. 5. No known drug allergies. 6. Social history is positive for smoking. 7. Family history is noncontributory. 8. MAR was noted. 9. Case was discussed with RN. 10. Continue treatment per primary consultants. Subjective Constitutional: Reports: other - saturations better on bip; Denies: fever HEENT: Reports: congestion Respiratory: Reports: shortness of breath Cardiovascular: Denies: chest pain Gastrointestinal/Abdominal: Denies: nausea, vomiting, diarrhea Genitourinary: Denies: dysuria Neurologic: Denies: headache Psychiatric: Denies: depression Skin: Denies: rash Hematologic: Denies: bleeding Musculoskeletal: Denies: pain Allergies: Coded Allergies: No Known Allergies (Unverified , 02/05/20) Objective Last 24 Hour Vital Signs Date Time Temp Pulse Resp B/P (MAP) Pulse Ox O2 Delivery O2 Flow Rate FiO2 03/09/20 15:30 70 16 98 100 03/09/20 12:00 100 03/09/20 12:00 58 03/09/20 12:00 97.9 104 20 149/97 (114) 94 03/09/20 12:00 Bi-pap 100.0 Bi-pap Bi-pap 03/09/20 11:45 70 16 98 100 03/09/20 09:31 57 140/96 03/09/20 08:00 57 03/09/20 08:00 Bi-pap 100.0 Bi-pap Bi-pap 03/09/20 08:00 100 03/09/20 08:00 97.7 102 20 140/96 (111) 94 03/09/20 07:50 58 18 96 100 03/09/20 04:00 Bi-pap 100.0 Bi-pap Bi-pap 03/09/20 04:00 100 03/09/20 04:00 59 03/09/20 04:00 97.5 88 23 139/99 (112) 97 03/09/20 01:00 66 20 95 100 03/09/20 00:00 97.3 80 22 146/93 (110) 96 03/09/20 00:00 107 03/09/20 00:00 100 03/09/20 00:00 Bi-pap 100.0 Bi-pap Bi-pap 03/08/20 20:00 79 03/08/20 20:00 100 03/08/20 20:00 Bi-pap 100.0 Bi-pap Bi-pap 03/08/20 20:00 97.7 87 25 141/95 (110) 97 03/08/20 19:13 70 23 89 100 03/08/20 18:13 93 162/117 Height (Feet): 5 Height (Inches): 10.00 Weight (Pounds): 240 General Appearance: no acute distress HEENT: normocephalic, atraumatic, anicteric Respiratory/Chest: crackles/rales, rhonchi - bilaterally Cardiovascular: normal rate, regular rhythm, no gallop/murmur Abdomen: normal bowel sounds, soft, non tender, no organomegaly, non distended Genitourinary: other - no joseph Extremities: no cyanosis Skin: no rash 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 The infiltrates are typical for Covid 19. No evidence of pulmonary embolus. CT abdomen and pelvis: IMPRESSION: 1. Scattered hepatic hypodense lesions, too small to characterize on this examination without intravenous contrast. 2. Colonic diverticulosis without evidence of acute diverticulitis. 3. Scattered enlarged mesenteric lymph nodes, presumably reactive. teral pneumonia. The infiltrates are typical for Covid 19. No evidence of pulmonary embolus. Chest x-ray - 12/19/19 - Indication: Shortness of breath Technique: One view of the chest Comparison: 02/17/2020 Findings: Interim worsening of bilateral infiltrates, particularly on the right. The heart is borderline enlarged. The pleural spaces are clear. Left arm PICC is again demonstrated Impression: Worsening bilateral infiltrates over one day, likely pneumonia CT chest - 02/19/20 - IMPRESSION: Increased extensive patchy ground-glass opacities and densities throughout the lungs, suggestive of Covid 19 infection. Chest x-ray 02/23/20 - Procedure: XRAY Chest 1v As Indication: Reason For Exam: INFECT Technique: One view of the chest Comparison: 02/20/2020 Findings: Allowing for differences in exposure technique, bilateral mid and lower lung infiltrates are probably unchanged. The heart size is normal. The pleural spaces are clear. Impression: Unchanged, over 4 days, findings as above. Chest x-ray - 02/25/20 - FINDINGS: Lungs: Interval slightly worsening bilateral airspace disease. Pleural space: Unremarkable. No pneumothorax. Heart: Unremarkable. No cardiomegaly. Mediastinum: Unremarkable. Bones/joints: Unremarkable. IMPRESSION: Interval slightly worsening bilateral airspace disease. Chest x-ray - 03/02/20 - Procedure: XRAY Chest 1v Indication: Shortness of breath Technique: One view of the chest Comparison: 02/25/2020 Findings: Bilateral interstitial and airspace infiltrates are unchanged. The heart size is normal. Left arm PICC is again demonstrated Impression: Unchanged, over one day, findings as above. Chest x-ray - 03/06/20 - Procedure: XRAY Chest 1v Indication: Shortness of breath Technique: One view of the chest Comparison: 03/02/2020 Findings: Bilateral infiltrates are unchanged. Normal heart size. Pleural spaces are clear Impression: Unchanged, over 4 days, findings as above. Microbiology Date/Time Source Procedure Growth Status 03/03/20 23:00 Blood Blood Culture - Preliminary Resulted 02/17/20 19:00 Urine,Clean Catch Urine Culture - Final NO GROWTH AFTER 48 HOURS Complete 02/10/20 06:30 Nasopharynx SARS-CoV-2 RdRp Gene Assay - Final Complete Labs Test 03/07/20 05:00 03/07/20 11:00 03/08/20 03:10 White Blood Count 14.0 K/UL (4.8-10.8) 12.9 K/UL (4.8-10.8) Red Blood Count 4.89 M/UL (4.70-6.10) 5.22 M/UL (4.70-6.10) Hemoglobin 13.9 G/DL (14.2-18.0) 14.7 G/DL (14.2-18.0) Hematocrit 44.3 % (42.0-52.0) 47.0 % (42.0-52.0) Mean Corpuscular Volume 91 FL (80-99) 90 FL (80-99) Mean Corpuscular Hemoglobin 28.5 PG (27.0-31.0) 28.2 PG (27.0-31.0) Mean Corpuscular Hemoglobin Concent 31.4 G/DL (32.0-36.0) 31.3 G/DL (32.0-36.0) Red Cell Distribution Width 16.1 % (11.6-14.8) 15.0 % (11.6-14.8) Platelet Count 234 K/UL (150-450) 227 K/UL (150-450) Mean Platelet Volume 8.0 FL (6.5-10.1) 7.7 FL (6.5-10.1) Neutrophils (%) (Auto) % (45.0-75.0) % (45.0-75.0) Lymphocytes (%) (Auto) % (20.0-45.0) % (20.0-45.0) Monocytes (%) (Auto) % (1.0-10.0) % (1.0-10.0) Eosinophils (%) (Auto) % (0.0-3.0) % (0.0-3.0) Basophils (%) (Auto) % (0.0-2.0) % (0.0-2.0) Differential Total Cells Counted 100 100 Neutrophils % (Manual) 94 % (45-75) 94 % (45-75) Lymphocytes % (Manual) 3 % (20-45) 3 % (20-45) Monocytes % (Manual) 2 % (1-10) 3 % (1-10) Eosinophils % (Manual) 1 % (0-3) 0 % (0-3) Basophils % (Manual) 0 % (0-2) 0 % (0-2) Band Neutrophils 0 % (0-8) 0 % (0-8) Platelet Estimate Adequate Adequate Platelet Morphology Normal Normal Red Blood Cell Morphology Normal Sodium Level 157 MMOL/L (136-145) 157 MMOL/L (136-145) Potassium Level 4.2 MMOL/L (3.5-5.1) 4.2 MMOL/L (3.5-5.1) Chloride Level 123 MMOL/L (98-107) 121 MMOL/L (98-107) Carbon Dioxide Level 28 MMOL/L (21-32) 29 MMOL/L (21-32) Anion Gap 6 mmol/L (5-15) 7 mmol/L (5-15) Blood Urea Nitrogen 42 mg/dL (7-18) 44 mg/dL (7-18) Creatinine 1.4 MG/DL (0.55-1.30) 1.4 MG/DL (0.55-1.30) Estimat Glomerular Filtration Rate 51.4 mL/min (>60) 51.4 mL/min (>60) Glucose Level 121 MG/DL (74-106) 136 MG/DL (74-106) Calcium Level 9.0 MG/DL (8.5-10.1) 8.8 MG/DL (8.5-10.1) Total Bilirubin 0.8 MG/DL (0.2-1.0) 0.4 MG/DL (0.2-1.0) Aspartate Amino Transf (AST/SGOT) 39 U/L (15-37) 33 U/L (15-37) Alanine Aminotransferase (ALT/SGPT) 30 U/L (12-78) 28 U/L (12-78) Alkaline Phosphatase 142 U/L (46-116) 121 U/L (46-116) Total Protein 7.6 G/DL (6.4-8.2) 7.0 G/DL (6.4-8.2) Albumin 2.3 G/DL (3.4-5.0) 2.2 G/DL (3.4-5.0) Globulin 5.3 g/dL 4.8 g/dL Albumin/Globulin Ratio 0.4 (1.0-2.7) 0.5 (1.0-2.7) Hypochromasia 1+ Anisocytosis 1+ Pro-B-Type Natriuretic Peptide 197 pg/mL (0-125) Current Medications Medications (Trade) Dose Ordered Sig/Dennis Route PRN Reason Start Time Stop Time Status Last Admin Dose Admin Acetaminophen (Tylenol) 650 mg Q4H PRN ORAL Mild Pain (Pain Scale 1-3) 03/09/20 12:00 04/08/20 11:59 Amlodipine Besylate (Norvasc) 5 mg BID ORAL 02/10/20 09:00 03/11/20 08:59 03/09/20 09:31 Bisacodyl (Dulcolax) 10 mg HSPRN PRN RECTAL Constipation 02/05/20 13:15 05/05/20 13:14 Chlorhexidine Gluconate (Marlen-Hex 2%) 1 applic DAILY@2000 TOPIC 02/14/20 20:00 05/14/20 19:59 03/08/20 20:19 Dextrose 1,000 ml @ 0 mls/hr Q24H PRN IV PN interrupted or unavailable 03/09/20 20:00 04/08/20 19:59 Dextrose 1,000 ml @ 100 mls/hr Q10H IV 03/06/20 18:30 03/09/20 19:59 03/09/20 08:37 Dextrose (Dextrose 50%) 25 ml Q30M PRN IV Hypoglycemia 03/10/20 00:00 06/08/20 00:00 Dextrose (Dextrose 50%) 25 ml Q30M PRN IV Hypoglycemia 02/05/20 13:15 03/09/20 23:59 Dextrose (Dextrose 50%) 50 ml Q30M PRN IV Hypoglycemia 03/10/20 00:00 06/08/20 00:00 Dextrose (Dextrose 50%) 50 ml Q30M PRN IV Hypoglycemia 02/05/20 13:15 03/09/20 23:59 Fat Emulsion Intravenous 240 ml/Amino Acids/ Electrolytes/ Dextrose 2,040 ml @ 85 mls/hr Q24H IV 03/09/20 20:00 06/07/20 19:59 Ibuprofen (Motrin) 600 mg TIDPRN PRN ORAL Breakthrough Pain 02/17/20 19:30 03/18/20 19:29 02/21/20 20:56 Insulin Aspart (NovoLOG) Q6HR SUBQ 03/10/20 00:00 06/08/20 00:00 Lactulose (Cephulac) 20 gm THREE TIMES A DAY ORAL 03/08/20 13:00 04/07/20 12:59 03/09/20 13:42 Methylprednisolone Sodium Succinate (Solu-MEDROL) 40 mg EVERY 8 HOURS IVP 03/07/20 18:58 06/05/20 18:57 03/09/20 13:42 Polyethylene Glycol (Miralax) 17 gm BEDTIME ORAL 03/08/20 21:00 04/07/20 20:59 03/08/20 20:44 Promethazine HCl/ Codeine (Phenergan with Codeine) 5 ml Q4H PRN ORAL For Cough 02/22/20 12:15 03/23/20 12:14 02/26/20 04:05 Trimethoprim/ Sulfamethoxazole 20 ml/Dextrose 570 ml @ 380 mls/hr [id number] BACTRIM IV 03/09/20 16:00 03/16/20 15:59 Kisha Salazar MD Mar 09, 2020 16:29
--- NOTE | 2020-03-09 18:40 | NUR ---
NURSE NOTES: PLease note re non admin 1800 meds. pt is not able to swallow properly, likley not getting entire amlodapine dose. BP meets paramaters for IV hydralazine ordered by Dr. Awan, will give instead of amlodapine.
--- NOTE | 2020-03-09 19:19 | Cardiology Progress Note ---
Assessment/Plan Assessment/Plan Acute covid 19 pneumonia chest pain possible M/S infiltrate bilat bacteremia drug free for 28 years his of ivda hypernatremia on bipap echo normal wall motion last week hypoxemia unlikely cardiac related ct of the chest done most recently showed extensive infiltrate felt to be due to worsening covid 19 infection on full dose anticoagulation for potential PE as a cause of hypoxemia continue supportive care remain on bipap saturating better now probnp near normal yest renal fxn is mildly increases tele sinus tachy na is increased renal following bp is high, rn notified me that pt not able to take norvasc so iv hydralazien given will start on tts patch Subjective ROS Limited/Unobtainable: Yes Subjective pt now in covid 19 isolation per rn: per RN. bserved pt asleep in bed. Pt continues to be on BiPAP 20/10, FiO2 100%; sating at 97%. No distress noted. Objective Last 24 Hour Vital Signs Date Time Temp Pulse Resp B/P (MAP) Pulse Ox O2 Delivery O2 Flow Rate FiO2 03/09/20 18:40 152/97 03/09/20 16:00 100 03/09/20 16:00 76 03/09/20 16:00 Bi-pap 100.0 Bi-pap Bi-pap 03/09/20 16:00 97.7 68 22 150/100 (117) 95 03/09/20 15:30 70 16 98 100 03/09/20 12:00 100 03/09/20 12:00 58 03/09/20 12:00 97.9 104 20 149/97 (114) 94 03/09/20 12:00 Bi-pap 100.0 Bi-pap Bi-pap 03/09/20 11:45 70 16 98 100 03/09/20 09:31 57 140/96 03/09/20 08:00 57 03/09/20 08:00 Bi-pap 100.0 Bi-pap Bi-pap 03/09/20 08:00 100 03/09/20 08:00 97.7 102 20 140/96 (111) 94 03/09/20 07:50 58 18 96 100 03/09/20 04:00 Bi-pap 100.0 Bi-pap Bi-pap 03/09/20 04:00 100 03/09/20 04:00 59 03/09/20 04:00 97.5 88 23 139/99 (112) 97 03/09/20 01:00 66 20 95 100 03/09/20 00:00 97.3 80 22 146/93 (110) 96 03/09/20 00:00 107 03/09/20 00:00 100 03/09/20 00:00 Bi-pap 100.0 Bi-pap Bi-pap 03/08/20 20:00 79 03/08/20 20:00 100 03/08/20 20:00 Bi-pap 100.0 Bi-pap Bi-pap 03/08/20 20:00 97.7 87 25 141/95 (110) 97 Intake and Output 03/08/20 03/09/20 19:00 07:00 Intake Total 1050 ml 955 ml Output Total 200 ml 550 ml Balance 850 ml 405 ml Intake Oral 100 ml 130 ml IV Total 950 ml 825 ml Output Urine Total 200 ml 550 ml # Voids 2 # Bowel Movements 3 Objective pt in covid 19 isoaltion with acute infection per ID Respiratory/Chest: no accessory muscle use, crackles/rales, rhonchi - bilaterally Cardiovascular: normal rate, regular rhythm, no gallop/murmur, no JVD Abdomen: normal bowel sounds, soft, non tender, no organomegaly, non distended Genitourinary: other - no joseph Extremities: no cyanosi Manan Awan MD Mar 09, 2020 19:19
--- NOTE | 2020-03-09 19:22 | NUR ---
NURSE NOTES: Received report from PRIYANKA Sorensen. Pt is A/O x4 and verbally responsive. No SOB or acute distress. athletic monitor showing NSR. Pt has a WAYNE PICC line double lumen running D5W @75cc/hr. Pt is on BiPAP 20/10, FiO2 100% with saturation showing 95%. Bed is in the lowest position with side rails x2 and locked. Call light and bedside table is within reach. Will continue plan of care.
--- NOTE | 2020-03-09 19:28 | NUR ---
NURSE HAND-OFF REPORT: Important Events on Shift:[several rounds of oral and nasal care done with RT at bedside. clumps of dried blood removed from mouth and nose, pt required more oral care. Swelling to left arm noted, elevated arm. ] Patient Status: [Full code] Diet: [TPN] Pending Orders: [] Pending Results/Labs:[] Pending MD notification:[] Latest Vital Signs: Temperature 97.7 , Pulse 68 , B/P 152 /97 , Respiratory Rate 22 , O2 SAT 95 , Room Air, O2 Flow Rate 100.0 . Vital Sign Comment: [] EKG Rhythm: Sinus Rhythm Rhythm change?: N MD Notified?: Courtney Paige MD Response: Message left await call Latest Hassan Fall Score: 45 Fall Risk: High Risk Safety Measures: Call light Within Reach, Bed Alarm Zone 1, Side Rails Side Rails x2, Bed position Low and Locked. Fall Precautions: Yellow Socks Patient Fall Education Report given to [Adelita RN].
[2020-03-09 20:00] VITALS: BP 136/88
[2020-03-09] MEDS ORDERED: Dextrose 10% 1,000 ML IV PRN (20:00)
[2020-03-09] MEDS: Fat Emulsion Iv 20% 240 ML in Tpn 1,800 ML IV SCH (20:05)
[2020-03-09] MEDS: Dyna-Hex 2% Top Sol 2oz TOPIC SCH (20:06)
[2020-03-09] MEDS: Miralax 17gm pkt ORAL SCH (20:07)
[2020-03-09] MEDS ORDERED: Fat Emulsion Iv 20% 250 ML IV SCH (21:00)
[2020-03-09] MEDS: NovoLOG Insulin Flexpen SUBQ SCH (23:54)
[2020-03-10] VITALS: BP 153/68
[2020-03-10 04:00] VITALS: BP 153/68
[2020-03-10] MEDS: Solu-MEDROL 40mg Inj IVP SCH ×3 (05:04→22:07)
[2020-03-10] MEDS: NovoLOG Insulin Flexpen SUBQ SCH ×4 (05:41→23:22)
--- NOTE | 2020-03-10 06:59 | NUR ---
NURSE HAND-OFF REPORT: Important Events on Shift: Saturation @ 97%. Oral care still continues to desaturate. TPN with Lipids started. Patient Status: Guarded Diet: NPO Pending Orders: Pending Results/Labs: Pending MD notification: Latest Vital Signs: Temperature 98.0 , Pulse 70 , B/P 153 /68 , Respiratory Rate 18 , O2 SAT 97 , Room Air, O2 Flow Rate 100.0 . Vital Sign Comment: EKG Rhythm: Sinus Rhythm Rhythm change?: N MD Notified?: Courtney Paige MD Response: Message left await call Latest Hassan Fall Score: 45 Fall Risk: High Risk Safety Measures: Call light Within Reach, Bed Alarm Zone 1, Side Rails Side Rails x2, Bed position Low and Locked. Fall Precautions: Yellow Socks Patient Fall Education Report given to Ani.
--- NOTE | 2020-03-10 07:04 | NUR ---
Nursing Note: Pt received from Adelita MATHEW. pt in bed sleeping. bed low and locked, call light within reach. on Biapap 20/12. no complaint of pain or distress. TPN running in left upper arm picc line.
[2020-03-10 07:08] LABS: HEMATOCRIT 53.1 % (42.0-52.0); HEMOGLOBIN 16.6 G/DL (14.2-18.0); MEAN CORPUSCULAR VOLUME 91 FL (80-99); PLATELET COUNT 182 K/UL (150-450); RED BLOOD COUNT 5.82 M/UL (4.70-6.10); RED CELL DISTRIBUTION WIDTH 13.9 % (11.6-14.8); WHITE BLOOD COUNT 14.4 K/UL (4.8-10.8)
[2020-03-10 08:00] VITALS: BP 147/94
[2020-03-10 08:10] LABS: ALANINE AMINOTRANSFERASE 52 U/L (12-78); ALBUMIN 2.4 G/DL (3.4-5.0); ALBUMIN/GLOBULIN RATIO 0.6 (1.0-2.7); ALKALINE PHOSPHATASE 113 U/L (46-116); ANION GAP 11 mmol/L (5-15); ASPARTATE AMINO TRANSFERASE 55 U/L (15-37); BILIRUBIN,TOTAL 0.4 MG/DL (0.2-1.0); BLOOD UREA NITROGEN 35 mg/dL (7-18); CALCIUM 8.9 MG/DL (8.5-10.1); CARBON DIOXIDE 26 MMOL/L (21-32); CHLORIDE 110 MMOL/L (98-107); CHOLESTEROL 223 MG/DL (< 200); CREATINE KINASE 1247 U/L (26-308); GAMMA GLUTAMYL TRANSPEPTIDASE 87 U/L (5-85); HDL CHOLESTEROL 29 MG/DL (40-60); LACTATE DEHYDROGENASE 418 U/L (81-234); PHOSPHORUS 3.8 MG/DL (2.5-4.9); POTASSIUM 4.6 MMOL/L (3.5-5.1); SODIUM 147 MMOL/L (136-145); TRIGLYCERIDES 307 MG/DL (30-150)
[2020-03-10] MEDS: Lactulose 20gm/30ml UDC ORAL SCH ×3 (09:00→17:31)
--- NOTE | 2020-03-10 09:20 | NUR ---
NURSE NOTES: Re 0900 meds. pt shakes head that he does not want to swallow medication. Pt bp slighlt elevated but he has a clonidine patch. Additionally he has a prn iv hydralazine which I will give if he meets the parameter. Please note this pt has poor swallowing and is incredibly anxious about taking the Bipap mask on due to desaturation. I will inform Dr. Quintero re the non admit lactulose and Dr. Awan re non admin amlodipine ( previously made aware of poor swallowing)
[2020-03-10] MEDS: Bactrim 20ml in D5W 550ml IV SCH ×3 (09:52→23:11)
--- NOTE | 2020-03-10 10:05 | Nephrology Progress Note ---
Assessment/Plan Problem List: (1) Dehydration (2) Electrolyte imbalance (3) COVID-19 virus infection (4) Pneumonia (5) DMII (diabetes mellitus, type 2) Assessment Azotemia, hypernatremia Hypoalbuminemia Staff Otilia bacteremia COVID-19 isolation, pneumonia, bilateral infiltrate Hypertension Diabetes mellitus History of smoking Plan March 10: Patient on TPN. Labs reviewed. Electrolytes overall stable. CPK is elevated. Will monitor electrolyte, CPK level, lipid panel. Continue per consultants. Discussed with pharmacist. Discussed with RN. Nutritional evaluation noted. Previously: D5W 100 cc an hour Monitor electrolytes renal parameters TPN and Intralipid ordered Will follow Continue per consultants Dietary consult requested Subjective ROS Limited/Unobtainable: No Constitutional: Reports: malaise, weakness Objective Objective Last 24 Hour Vital Signs Date Time Temp Pulse Resp B/P (MAP) Pulse Ox O2 Delivery O2 Flow Rate FiO2 03/10/20 08:00 Bi-pap 100.0 Bi-pap Bi-pap 03/10/20 08:00 97.7 91 21 147/94 (111) 99 91 03/10/20 08:00 100 03/10/20 08:00 67 03/10/20 07:00 70 20 97 100 03/10/20 06:30 70 26 97 Bi-Pap 100 03/10/20 04:00 100 03/10/20 04:00 Bi-pap 100.0 Bi-pap Bi-pap 03/10/20 04:00 70 03/10/20 04:00 98.0 65 18 153/68 (96) 97 03/10/20 02:40 79 24 94 100 03/10/20 00:00 Bi-pap 100.0 Bi-pap Bi-pap 03/10/20 00:00 100 03/10/20 00:00 98.0 65 18 153/68 (96) 97 03/10/20 00:00 70 03/09/20 22:35 74 25 95 100 03/09/20 21:00 152/97 03/09/20 20:00 97.9 70 23 136/88 (104) 96 03/09/20 20:00 70 03/09/20 19:48 Bi-pap 100.0 Bi-pap Bi-pap 03/09/20 19:48 100 03/09/20 19:22 77 30 92 100 03/09/20 18:40 152/97 03/09/20 16:00 100 03/09/20 16:00 76 03/09/20 16:00 Bi-pap 100.0 Bi-pap Bi-pap 03/09/20 16:00 97.7 68 22 150/100 (117) 95 03/09/20 15:30 70 16 98 100 03/09/20 12:00 100 03/09/20 12:00 58 03/09/20 12:00 97.9 104 20 149/97 (114) 94 03/09/20 12:00 Bi-pap 100.0 Bi-pap Bi-pap 03/09/20 11:45 70 16 98 100 Intake and Output 03/09/20 03/10/20 19:00 07:00 Intake Total 1225 ml 120 ml Output Total 500 ml 200 ml Balance 725 ml -80 ml Intake Oral 100 ml 120 ml IV Total 1125 ml Output Urine Total 500 ml 200 ml # Voids 2 Current Medications Medications (Trade) Dose Ordered Sig/Dennis Route PRN Reason Start Time Stop Time Status Last Admin Dose Admin Acetaminophen (Tylenol) 650 mg Q4H PRN ORAL Mild Pain (Pain Scale 1-3) 03/09/20 12:00 04/08/20 11:59 Amlodipine Besylate (Norvasc) 5 mg BID ORAL 02/10/20 09:00 03/11/20 08:59 03/09/20 09:31 Bisacodyl (Dulcolax) 10 mg HSPRN PRN RECTAL Constipation 02/05/20 13:15 05/05/20 13:14 Chlorhexidine Gluconate (Marlen-Hex 2%) 1 applic DAILY@2000 TOPIC 02/14/20 20:00 05/14/20 19:59 03/09/20 20:06 Clonidine HCl (Catapres TTS-1) 1 patch QWEEK TDERMAL 03/09/20 21:00 06/07/20 20:59 03/09/20 21:00 Dextrose 1,000 ml @ 0 mls/hr Q24H PRN IV PN interrupted or unavailable 03/09/20 20:00 04/08/20 19:59 Dextrose (Dextrose 50%) 25 ml Q30M PRN IV Hypoglycemia 03/10/20 00:00 06/08/20 00:00 Dextrose (Dextrose 50%) 50 ml Q30M PRN IV Hypoglycemia 03/10/20 00:00 06/08/20 00:00 Fat Emulsion Intravenous 240 ml/Amino Acids/ Electrolytes/ Dextrose 2,040 ml @ 85 mls/hr Q24H IV 03/09/20 20:00 06/07/20 19:59 03/09/20 20:05 Hydralazine HCl (Apresoline) 10 mg Q6H PRN IV For High Blood Pressure 03/09/20 17:00 06/07/20 16:59 03/09/20 18:40 Ibuprofen (Motrin) 600 mg TIDPRN PRN ORAL Breakthrough Pain 02/17/20 19:30 03/18/20 19:29 02/21/20 20:56 Insulin Aspart (NovoLOG) Q6HR SUBQ 03/10/20 00:00 06/08/20 00:00 03/10/20 05:41 Lactulose (Cephulac) 20 gm THREE TIMES A DAY ORAL 03/08/20 13:00 04/07/20 12:59 03/09/20 13:42 Methylprednisolone Sodium Succinate (Solu-MEDROL) 40 mg EVERY 8 HOURS IVP 03/07/20 18:58 06/05/20 18:57 03/10/20 05:04 Polyethylene Glycol (Miralax) 17 gm BEDTIME ORAL 03/08/20 21:00 04/07/20 20:59 03/09/20 20:07 Promethazine HCl/ Codeine (Phenergan with Codeine) 5 ml Q4H PRN ORAL For Cough 02/22/20 12:15 03/23/20 12:14 02/26/20 04:05 Trimethoprim/ Sulfamethoxazole 20 ml/Dextrose 570 ml @ 380 mls/hr H8OH-TR BACTRIM IV 03/09/20 16:00 03/16/20 15:59 03/10/20 09:52 Laboratory Tests 03/09/20 23:46: POC Whole Blood Glucose 175H 03/10/20 04:50: White Blood Count 14.4H, Red Blood Count 5.82, Hemoglobin 16.6, Hematocrit 53.1H , Mean Corpuscular Volume 91, Mean Corpuscular Hemoglobin 28.6, Mean Corpuscular Hemoglobin Concent 31.3L, Red Cell Distribution Width 13.9, Platelet Count 182, Mean Platelet Volume 8.4, Neutrophils (%) (Auto) , Lymphocytes (%) (Auto) , Monocytes (%) (Auto) , Eosinophils (%) (Auto) , Basophils (%) (Auto) , Neutrophils % (Manual) [Pending], Lymphocytes % (Manual) [Pending], Platelet Estimate [Pending], Platelet Morphology [Pending], Sodium Level 147H, Potassium Level 4.6, Chloride Level 110H, Carbon Dioxide Level 26, Anion Gap 11, Blood Urea Nitrogen 35H, Creatinine 1.0, Estimat Glomerular Filtration Rate > 60, Glucose Level 195H, Hemoglobin A1c 6.6H, Uric Acid < 0.2L, Calcium Level 8.9, Phosphorus Level 3.8, Magnesium Level 2.5H, Total Bilirubin 0.4, Gamma Glutamyl Transpeptidase 87H, Aspartate Amino Transf (AST/SGOT) 55H, Alanine Aminotransferase (ALT/SGPT) 52, Alkaline Phosphatase 113, Lactate Dehydrogenase 418H, Total Creatine Kinase 1247H, C-Reactive Protein, Quantitative [Pending], Pro-B-Type Natriuretic Peptide 182H, Total Protein 6.6, Albumin 2.4L, Globulin 4.2, Albumin/Globulin Ratio 0.6L, Triglycerides Level 307H, Cholesterol Level 22 3H, LDL Cholesterol 148H, HDL Cholesterol 29L, Cholesterol/HDL Ratio 7.7H, Vitamin D 25-Hydroxy [Pending], 25-Hydroxy Vitamin D2 [Pending], 25-Hydroxy Vitamin D3 [Pending], Thyroid Stimulating Hormone (TSH) 2.138 03/10/20 05:21: POC Whole Blood Glucose 189H Height (Feet): 5 Height (Inches): 10.00 Weight (Pounds): 240 General Appearance: mild distress EENT: other - On BiPAP Cardiovascular: normal rate Respiratory/Chest: decreased breath sounds Abdomen: distended Rubin Cooper MD Mar 10, 2020 10:05
--- NOTE | 2020-03-10 10:47 | NUR ---
NURSE NOTES: With pts permission gave update to sister Denise
--- NOTE | 2020-03-10 11:59 | Cardiology Report ---
APPROVED REPORT EKG Measurement Heart [id number] <Conclusion> Normal sinus rhythm Nonspecific T wave abnormality Abnormal ECG
[2020-03-10 12:00] VITALS: BP 150/72
--- NOTE | 2020-03-10 12:38 | General Progress Note ---
Subjective ROS Limited/Unobtainable: Yes Allergies: Coded Allergies: No Known Allergies (Unverified , 02/05/20) Objective Last 24 Hour Vital Signs Date Time Temp Pulse Resp B/P (MAP) Pulse Ox O2 Delivery O2 Flow Rate FiO2 03/10/20 08:00 Bi-pap 100.0 Bi-pap Bi-pap 03/10/20 08:00 97.7 91 21 147/94 (111) 99 91 03/10/20 08:00 100 03/10/20 08:00 67 03/10/20 07:00 70 20 97 100 03/10/20 06:30 70 26 97 Bi-Pap 100 03/10/20 04:00 100 03/10/20 04:00 Bi-pap 100.0 Bi-pap Bi-pap 03/10/20 04:00 70 03/10/20 04:00 98.0 65 18 153/68 (96) 97 03/10/20 02:40 79 24 94 100 03/10/20 00:00 Bi-pap 100.0 Bi-pap Bi-pap 03/10/20 00:00 100 03/10/20 00:00 98.0 65 18 153/68 (96) 97 03/10/20 00:00 70 03/09/20 22:35 74 25 95 100 03/09/20 21:00 152/97 03/09/20 20:00 97.9 70 23 136/88 (104) 96 03/09/20 20:00 70 03/09/20 19:48 Bi-pap 100.0 Bi-pap Bi-pap 03/09/20 19:48 100 03/09/20 19:22 77 30 92 100 03/09/20 18:40 152/97 03/09/20 16:00 100 03/09/20 16:00 76 03/09/20 16:00 Bi-pap 100.0 Bi-pap Bi-pap 03/09/20 16:00 97.7 68 22 150/100 (117) 95 03/09/20 15:30 70 16 98 100 Intake and Output 03/09/20 03/10/20 19:00 07:00 Intake Total 1225 ml 120 ml Output Total 500 ml 200 ml Balance 725 ml -80 ml Intake Oral 100 ml 120 ml IV Total 1125 ml Output Urine Total 500 ml 200 ml # Voids 2 Laboratory Tests 03/09/20 23:46: POC Whole Blood Glucose 175H 03/10/20 04:50: White Blood Count 14.4H, Red Blood Count 5.82, Hemoglobin 16.6, Hematocrit 53.1H , Mean Corpuscular Volume 91, Mean Corpuscular Hemoglobin 28.6, Mean Corpuscular Hemoglobin Concent 31.3L, Red Cell Distribution Width 13.9, Platelet Count 182, Mean Platelet Volume 8.4, Neutrophils (%) (Auto) , Lymphocytes (%) (Auto) , Monocytes (%) (Auto) , Eosinophils (%) (Auto) , Basophils (%) (Auto) , Differential Total Cells Counted 100, Neutrophils % (Manual) 96H, Lymphocytes % (Manual) 3L, Monocytes % (Manual) 1, Eosinophils % (Manual) 0, Basophils % (Manual) 0, Band Neutrophils 0, Platelet Estimate Adequate, Platelet Morphology Normal, Red Blood Cell Morphology Normal, Sodium Level 147H, Potassium Level 4.6, Chloride Level 110H, Carbon Dioxide Level 26, Anion Gap 11, Blood Urea Nitrogen 35H, Creatinine 1.0, Estimat Glomerular Filtration Rate > 60, Glucose Level 195H, Hemoglobin A1c 6.6H, Uric Acid < 0.2L, Calcium Level 8.9, Phosphorus Level 3.8, Magnesium Level 2.5H, Total Bilirubin 0.4, Gamma Glutamyl Transpeptidase 87H, Aspartate Amino Transf (AST/SGOT) 55H, Alanine Aminotransferase (ALT/SGPT) 52, Alkaline Phosphatase 113, Lactate Dehydrogenase 418H, Total Creatine Kinase 1247H, C-Reactive Protein, Quantitative [Pending], Pro-B-Type Natriuretic Peptide 182H, Total Protein 6.6, Albumin 2.4L, Globulin 4.2, Albumin/Globulin Ratio 0.6L, Triglycerides Level 307H, Cholesterol Level 223H, LDL Cholesterol 148H, HDL Cholesterol 29L, Cholesterol/HDL Ratio 7.7H, Thyroid Stimulating Hormone (TSH) 2.138 03/10/20 05:21: POC Whole Blood Glucose 189H 03/10/20 11:40: Vitamin D 25-Hydroxy [Pending], 25-Hydroxy Vitamin D2 [Pending], 25-Hydroxy Vitamin D3 [Pending] Height (Feet): 5 Height (Inches): 10.00 Weight (Pounds): 240 General Appearance: no apparent distress EENT: normal ENT inspection Neck: supple Cardiovascular: normal rate Respiratory/Chest: decreased breath sounds Abdomen: hypoactive bowel sounds Extremities: non-tender Assessment/Plan Status: not improved, unchanged Assessment/Plan: covid + on BIPAP DM HTN FTT constipation not stable for PEG could not tolerate NGT placement TPN bowel regimen covid care will Da Wilson MD Mar 10, 2020 12:38
--- NOTE | 2020-03-10 12:44 | NUR ---
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
--- NOTE | 2020-03-10 14:11 | Pulmonology Progress Note ---
Subjective ROS Limited/Unobtainable: Yes Interval Events: tolerating BiPAP but desaturates when off BiPAP Constitutional: Reports: other - saturations better on bip; Denies: fever HEENT: Repors: no symptoms Respiratory: Reports: dry cough, shortness of breath Cardiovascular: Denies: no symptoms, chest pain, palpitations, other Gastrointestinal/Abdominal: Denies: nausea, vomiting, diarrhea Psychiatric: Denies: depression Skin: Denies: rash Musculoskeletal: Denies: pain Allergies: Coded Allergies: No Known Allergies (Unverified , 02/05/20) Objective Last 24 Hour Vital Signs Date Time Temp Pulse Resp B/P (MAP) Pulse Ox O2 Delivery O2 Flow Rate FiO2 03/10/20 12:00 100 03/10/20 12:00 63 03/10/20 12:00 Bi-pap 100.0 Bi-pap Bi-pap 03/10/20 12:00 97.1 71 20 150/72 (98) 97 97 03/10/20 11:45 67 21 96 100 03/10/20 08:00 Bi-pap 100.0 Bi-pap Bi-pap 03/10/20 08:00 97.7 91 21 147/94 (111) 99 91 03/10/20 08:00 100 03/10/20 08:00 67 03/10/20 07:00 70 20 97 100 03/10/20 06:30 70 26 97 Bi-Pap 100 03/10/20 04:00 100 03/10/20 04:00 Bi-pap 100.0 Bi-pap Bi-pap 03/10/20 04:00 70 03/10/20 04:00 98.0 65 18 153/68 (96) 97 03/10/20 02:40 79 24 94 100 03/10/20 00:00 Bi-pap 100.0 Bi-pap Bi-pap 03/10/20 00:00 100 03/10/20 00:00 98.0 65 18 153/68 (96) 97 03/10/20 00:00 70 03/09/20 22:35 74 25 95 100 03/09/20 21:00 152/97 03/09/20 20:00 97.9 70 23 136/88 (104) 96 03/09/20 20:00 70 03/09/20 19:48 Bi-pap 100.0 Bi-pap Bi-pap 03/09/20 19:48 100 03/09/20 19:22 77 30 92 100 03/09/20 18:40 152/97 03/09/20 16:00 100 03/09/20 16:00 76 03/09/20 16:00 Bi-pap 100.0 Bi-pap Bi-pap 03/09/20 16:00 97.7 68 22 150/100 (117) 95 03/09/20 15:30 70 16 98 100 Intake and Output 03/09/20 03/10/20 19:00 07:00 Intake Total 1225 ml 120 ml Output Total 500 ml 200 ml Balance 725 ml -80 ml Intake Oral 100 ml 120 ml IV Total 1125 ml Output Urine Total 500 ml 200 ml # Voids 2 General Appearance: WD/WN, no acute distress HEENT: normocephalic, atraumatic Respiratory: chest wall non-tender Cardiovascular: normal rate, regular rhythm Abdomen: normal bowel sounds, soft, non tender, other - obese Laboratory Tests 03/09/20 23:46: POC Whole Blood Glucose 175H 03/10/20 04:50: White Blood Count 14.4H, Red Blood Count 5.82, Hemoglobin 16.6, Hematocrit 53.1H , Mean Corpuscular Volume 91, Mean Corpuscular Hemoglobin 28.6, Mean Corpuscular Hemoglobin Concent 31.3L, Red Cell Distribution Width 13.9, Platelet Count 182, Mean Platelet Volume 8.4, Neutrophils (%) (Auto) , Lymphocytes (%) (Auto) , Monocytes (%) (Auto) , Eosinophils (%) (Auto) , Basophils (%) (Auto) , Differential Total Cells Counted 100, Neutrophils % (Manual) 96H, Lymphocytes % (Manual) 3L, Monocytes % (Manual) 1, Eosinophils % (Manual) 0, Basophils % (Manual) 0, Band Neutrophils 0, Platelet Estimate Adequate, Platelet Morphology Normal, Red Blood Cell Morphology Normal, Sodium Level 147H, Potassium Level 4.6, Chloride Level 110H, Carbon Dioxide Level 26, Anion Gap 11, Blood Urea Nitrogen 35H, Creatinine 1.0, Estimat Glomerular Filtration Rate > 60, Glucose Level 195H, Hemoglobin A1c 6.6H, Uric Acid < 0.2L, Calcium Level 8.9, Phosphorus Level 3.8, Magnesium Level 2.5H, Total Bilirubin 0.4, Gamma Glutamyl Transpeptidase 87H, Aspartate Amino Transf (AST/SGOT) 55H, Alanine Aminotransferase (ALT/SGPT) 52, Alkaline Phosphatase 113, Lactate Dehydrogenase 418H, Total Creatine Kinase 1247H, C-Reactive Protein, Quantitative [Pending], Pro-B-Type Natriuretic Peptide 182H, Total Protein 6.6, Albumin 2.4L, Globulin 4.2, Albumin/Globulin Ratio 0.6L, Triglycerides Level 307H, Cholesterol Level 223H, LDL Cholesterol 148H, HDL Cholesterol 29L, Cholesterol/HDL Ratio 7.7H, Thyroid Stimulating Hormone (TSH) 2.138 03/10/20 05:21: POC Whole Blood Glucose 189H 03/10/20 11:40: Vitamin D 25-Hydroxy [Pending], 25-Hydroxy Vitamin D2 [Pending], 25-Hydroxy Vitamin D3 [Pending] Current Medications Medications (Trade) Dose Ordered Sig/Dennis Route PRN Reason Start Time Stop Time Status Last Admin Dose Admin Acetaminophen (Tylenol) 650 mg Q4H PRN ORAL Mild Pain (Pain Scale 1-3) 03/09/20 12:00 04/08/20 11:59 Amlodipine Besylate (Norvasc) 5 mg BID ORAL 02/10/20 09:00 03/11/20 08:59 03/09/20 09:31 Bisacodyl (Dulcolax) 10 mg HSPRN PRN RECTAL Constipation 02/05/20 13:15 05/05/20 13:14 Chlorhexidine Gluconate (Marlen-Hex 2%) 1 applic DAILY@2000 TOPIC 02/14/20 20:00 05/14/20 19:59 03/09/20 20:06 Clonidine HCl (Catapres TTS-1) 1 patch QWEEK TDERMAL 03/09/20 21:00 06/07/20 20:59 03/09/20 21:00 Dextrose 1,000 ml @ 0 mls/hr Q24H PRN IV PN interrupted or unavailable 03/09/20 20:00 04/08/20 19:59 Dextrose (Dextrose 50%) 25 ml Q30M PRN IV Hypoglycemia 03/10/20 00:00 06/08/20 00:00 Dextrose (Dextrose 50%) 50 ml Q30M PRN IV Hypoglycemia 03/10/20 00:00 06/08/20 00:00 Fat Emulsion Intravenous 240 ml/Amino Acids/ Electrolytes/ Dextrose 2,040 ml @ 85 mls/hr Q24H IV 03/09/20 20:00 06/07/20 19:59 03/09/20 20:05 Hydralazine HCl (Apresoline) 10 mg Q6H PRN IV For High Blood Pressure 03/09/20 17:00 06/07/20 16:59 03/09/20 18:40 Ibuprofen (Motrin) 600 mg TIDPRN PRN ORAL Breakthrough Pain 02/17/20 19:30 03/18/20 19:29 02/21/20 20:56 Insulin Aspart (NovoLOG) Q6HR SUBQ 03/10/20 00:00 06/08/20 00:00 03/10/20 11:37 Lactulose (Cephulac) 20 gm THREE TIMES A DAY ORAL 03/08/20 13:00 04/07/20 12:59 03/09/20 13:42 Methylprednisolone Sodium Succinate (Solu-MEDROL) 40 mg EVERY 8 HOURS IVP 03/07/20 18:58 06/05/20 18:57 03/10/20 05:04 Polyethylene Glycol (Miralax) 17 gm BEDTIME ORAL 03/08/20 21:00 04/07/20 20:59 03/09/20 20:07 Promethazine HCl/ Codeine (Phenergan with Codeine) 5 ml Q4H PRN ORAL For Cough 02/22/20 12:15 03/23/20 12:14 02/26/20 04:05 Trimethoprim/ Sulfamethoxazole 20 ml/Dextrose 570 ml @ 380 mls/hr [id number] BACTRIM IV 03/09/20 16:00 03/16/20 15:59 03/10/20 09:52 Assessment/Plan Assessment/Plan 1.COVID-19 pneumonia. - last COVID-19 test positive after two negative tests - CTA 02/05/2020 ground-glass and consolidating infiltrates in the dependent portions of both lower lobes and to lesser degree the upper lobes consistent with bilateral pneumonia. No evidence of pulmonary embolus. - CXR 02/17/2020 worsening bilateral infiltrates; on broad spectrum abx per ID - CT chest 02/18 shows Increased extensive patchy ground-glass opacities and densities throughout the lungs, suggestive of Covid 19 infection. - currently on BiPAP. Saturations 90%. - Mycoplasma pneumoniae IgG 273; M. pneumoniae IgM titer within normal limits - D-dimer 0.90; on full dose Lovenox -Discontinued Decadron, now on Solumedrol - s/p remdesivir - now off Lasix per Dr. Awan due to elevated Na - is now net I/O negative -We will start TPN He has had a progressive increase in LDH,-started on Bactrim due to concern about pneumocystis. - Looking marginally better today. 2. Initial negative rapid COVID-19 gene assay.- however repeat COVID-19 test positive 3. Smoker. 4. DVT ppx - on lovenox 5. Hypertension - on hydralazine, and norvasc - On cardiac diet 6. Blood culture positive for gram positive cocci staph aureus - on Abx - CT abd/pelvis showed no abscess per ID - TTE/ FERNY held off due to COVID-19 status - PICC line in place (Patient was seen earlier today. Signature timestamp does not reflect patient encounter time) John Mata MD . John Mata MD Mar 10, 2020 14:11
[2020-03-10 16:00] VITALS: BP 138/100
--- NOTE | 2020-03-10 17:33 | NUR ---
NURSE NOTES: Re non admin 1800 meds. pt refuses to take off mask. explained importance of lactulose given he has not had a bm since the . Explained that while we have an iv alternative to the amlodipine, we do not have IV medication for bowls. Explained to him that he needs to express with the pen and paper at bedside if he start having a feeling of abdominal fullness. Please note this pt has become more and more anxious about taking the mask off, even temporarily. Addendum: 03/10/20 at 1736 by Franchesca Laws RN Dr. Quintero made aware that pt missing lactulose doses and that last bm is from .
--- NOTE | 2020-03-10 18:34 | NUR ---
NURSE HAND-OFF REPORT: Important Events on Shift:[Pt incredibly anxious about turning to his side, making head of bed flat, or opening mask to take po meds. Continues to be weak and mildly anxious. daily oral and nasal care needed to ensure he is getting maximum 02. ] Patient Status: [Full code] Diet: [TPN 85ml] Pending Orders: [] Pending Results/Labs:[] Pending MD notification:[] Latest Vital Signs: Temperature 97.1 , Pulse 67 , B/P 138 /100 , Respiratory Rate 19 , O2 SAT 93 , Room Air, O2 Flow Rate 100.0 . Vital Sign Comment: [] EKG Rhythm: Sinus Rhythm Rhythm change?: N MD Notified?: Y -Dr.Toluie INTERIANO Response: Message left await call Latest Hassan Fall Score: 45 Fall Risk: High Risk Safety Measures: Call light Within Reach, Bed Alarm Zone 1, Side Rails Side Rails x2, Bed position Low and Locked. Fall Precautions: Yellow Socks Patient Fall Education Report given to [Pending rn assignment]. Addendum: 03/10/20 at 1914 by Franchesca Laws RN Report given to Wander RN; please endorse to morning RN to ask Dr. Mata about DVT prophylaxis
--- NOTE | 2020-03-10 19:29 | NUR ---
NURSE NOTES: Received report from PRIYANKA Sorensen. Pt in bed, A/O x4 and verbally responsive. In no apparent cardiac and respiratory distress noted. On campus monitor showing SR with 63 hr.On BiPAP 20/10, FiO2 100% saturating @93%. With PICC line double lumen running Intralipids in TPN @85ml/hr, no infiltration noted. Safety measures in place, bed is in the lowest position with side rails x2 and locked. Call light and bedside table is within reach. Will continue plan of care.
[2020-03-10 20:00] VITALS: BP 155/95
[2020-03-10] MEDS: Fat Emulsion Iv 20% 240 ML in Tpn 1,800 ML IV SCH (20:32)
[2020-03-10] MEDS: Miralax 17gm pkt ORAL SCH (20:33)
[2020-03-10] MEDS: Dyna-Hex 2% Top Sol 2oz TOPIC SCH (20:44)
[2020-03-11] VITALS: BP 145/96
--- NOTE | 2020-03-11 02:10 | NUR ---
NURSE NOTES: Sponge bath given but only wiped the front side of the his body from upper to lower extremities . Pt refused to be turn. Gown changed. Refused oral care too, explained to him risks and benefits but still refused. Will offer again later.
[2020-03-11 04:00] VITALS: BP 140/92
[2020-03-11] MEDS: Solu-MEDROL 40mg Inj IVP SCH ×3 (05:22→21:52)
[2020-03-11] MEDS: NovoLOG Insulin Flexpen SUBQ SCH ×4 (05:26→23:19)
--- NOTE | 2020-03-11 06:12 | NUR ---
NURSE NOTES: Pt in bed, awake. Able to make needs known. In no apparent acute cardiac and respiratory distress noted. Denies any pain at the moment. Offered to do oral care but pt still refused. Will continue to monitor pt
[2020-03-11 06:50] LABS: HEMATOCRIT 50.6 % (42.0-52.0); HEMOGLOBIN 15.5 G/DL (14.2-18.0); MEAN CORPUSCULAR VOLUME 103 FL (80-99); PLATELET COUNT 180 K/UL (150-450); RED BLOOD COUNT 4.89 M/UL (4.70-6.10); RED CELL DISTRIBUTION WIDTH 15.7 % (11.6-14.8); WHITE BLOOD COUNT 15.7 K/UL (4.8-10.8)
--- NOTE | 2020-03-11 07:09 | General Progress Note ---
Subjective ROS Limited/Unobtainable: No Allergies: Coded Allergies: No Known Allergies (Unverified , 02/05/20) Objective Last 24 Hour Vital Signs Date Time Temp Pulse Resp B/P (MAP) Pulse Ox O2 Delivery O2 Flow Rate FiO2 03/11/20 04:00 100 03/11/20 04:00 98.1 95 20 140/92 (108) 94 82 03/11/20 04:00 Bi-pap 100.0 Bi-pap Bi-pap 03/11/20 03:52 92 03/11/20 03:28 93 22 94 100 03/11/20 00:00 Bi-pap 100.0 Bi-pap Bi-pap 03/11/20 00:00 98.0 82 24 145/96 (112) 96 82 03/10/20 23:43 86 03/10/20 23:08 73 17 97 100 03/10/20 20:00 Bi-pap 100.0 Bi-pap Bi-pap 03/10/20 20:00 98.2 77 22 155/95 (115) 95 77 03/10/20 20:00 100 03/10/20 19:36 84 24 91 100 03/10/20 19:24 79 03/10/20 16:00 Bi-pap 100.0 Bi-pap Bi-pap 03/10/20 16:00 97.1 67 19 138/100 (113) 93 67 03/10/20 16:00 100 03/10/20 16:00 87 03/10/20 15:15 70 22 95 100 03/10/20 12:00 100 03/10/20 12:00 63 03/10/20 12:00 Bi-pap 100.0 Bi-pap Bi-pap 03/10/20 12:00 97.1 71 20 150/72 (98) 97 97 03/10/20 11:45 67 21 96 100 03/10/20 08:00 Bi-pap 100.0 Bi-pap Bi-pap 03/10/20 08:00 97.7 91 21 147/94 (111) 99 91 03/10/20 08:00 100 03/10/20 08:00 67 Intake and Output 03/10/20 03/11/20 19:00 07:00 Intake Total 1020 ml 1510 ml Output Total 950 ml 1200 ml Balance 70 ml 310 ml Intake Oral 0 ml 50 ml IV Total 1020 ml 1460 ml Output Urine Total 950 ml 1200 ml Laboratory Tests 03/10/20 11:40: Vitamin D 25-Hydroxy [Pending], 25-Hydroxy Vitamin D2 [Pending], 25-Hydroxy Vitamin D3 [Pending] 03/10/20 23:18: POC Whole Blood Glucose 212H 03/11/20 05:15: White Blood Count 15.7H, Red Blood Count 4.89, Hemoglobin 15.5, Hematocrit 50.6, Mean Corpuscular Volume 103#H, Mean Corpuscular Hemoglobin 31.6H, Mean Corpuscular Hemoglobin Concent 30.6L, Red Cell Distribution Width 15.7H, Platelet Count 180, Mean Platelet Volume 9.2, Neutrophils (%) (Auto) , Lymphocytes (%) (Auto) , Monocytes (%) (Auto) , Eosinophils (%) (Auto) , Basophils (%) (Auto) , Neutrophils % (Manual) [Pending], Lymphocytes % (Manual) [Pending], Platelet Estimate [Pending], Platelet Morphology [Pending], Sodium Level [Pending], Potassium Level [Pending], Chloride Level [Pending], Carbon Dioxide Level [Pending], Blood Urea Nitrogen [Pending], Creatinine [Pending], Estimat Glomerular Filtration Rate [Pending], Glucose Level [Pending], Uric Acid [Pending], Calcium Level [Pending], Phosphorus Level [Pending], Magnesium Level [Pending], Total Bilirubin [Pending], Aspartate Amino Transf (AST/SGOT) [Pending], Alanine Aminotransferase (ALT/SGPT) [Pending], Alkaline Phosphatase [Pending], Total Creatine Kinase [Pending], C-Reactive Protein, Quantitative [Pending], Pro-B-Type Natriuretic Peptide [Pending], Total Protein [Pending], Albumin [Pending], Globulin [Pending], Triglycerides Level [Pending], Cholesterol Level [Pending], LDL Cholesterol [Pending], HDL Cholesterol [Pending], Cholesterol/HDL Ratio [Pending] 03/11/20 05:23: POC Whole Blood Glucose 242H Height (Feet): 5 Height (Inches): 10.00 Weight (Pounds): 240 General Appearance: no apparent distress EENT: normal ENT inspection Neck: supple Cardiovascular: normal rate Respiratory/Chest: decreased breath sounds Abdomen: normal bowel sounds, non tender, soft Extremities: non-tender Assessment/Plan Status: not improved, unchanged Assessment/Plan: covid + on BIPAP DM HTN FTT constipation not stable for PEG could not tolerate NGT placement TPN for now bowel regimen covid care will fu Da Quintero MD Mar 11, 2020 07:09
--- NOTE | 2020-03-11 07:25 | NUR ---
NURSE HAND-OFF REPORT: Important Events on Shift: Stable; Pt refused to do oral care and to be turn and reposition Patient Status: Fair Diet: Intralipids in TPN Pending Orders: Pending Results/Labs: Pending MD notification: Latest Vital Signs: Temperature 98.1 , Pulse 82 , B/P 140 /92 , Respiratory Rate 20 , O2 SAT 94 , Room Air, O2 Flow Rate 100.0 . Vital Sign Comment: Stable EKG Rhythm: Sinus Rhythm Rhythm change?: N MD Notified?: MD Response: Latest Hassan Fall Score: 45 Fall Risk: High Risk Safety Measures: Call light Within Reach, Bed Alarm Zone 1, Side Rails Side Rails x2, Bed position Low and Locked. Fall Precautions: Yellow Socks Patient Fall Education Report given to Camron Goldstein RN .
--- NOTE | 2020-03-11 07:48 | NUR ---
NURSE NOTES:Handoff received from PRIYANKA Diamond. Patient received awake and alert in bed, patient appears anxious and stated he needs the BIPAP placed back on, patient found holding the BIPAP against his face. RT called and placed patient back on the BIPAP. Patient saturation went from 85-91 when mask fitted adequately. Patient denies pain at this time. Patient has L upper arm PICC double lumen, clean dry and intact running TPN @85ML/HR. Patient is placed on isolation precautions for COVID-19 as well as fall and aspiration precautions, bed is in the low and locked position with call light within reach. Patient is also on monitor worker with HR of 95, will follow plan of care.
[2020-03-11 08:00] VITALS: BP 145/97
[2020-03-11 08:07] LABS: CREATINE KINASE 1172 U/L (26-308)
[2020-03-11] MEDS: Lactulose 20gm/30ml UDC ORAL SCH ×3 (09:00→17:45)
[2020-03-11] MEDS: Bactrim 20ml in D5W 550ml IV SCH ×3 (09:21→23:09)
--- NOTE | 2020-03-11 11:18 | Nephrology Progress Note ---
Assessment/Plan Problem List: (1) Dehydration (2) Electrolyte imbalance (3) COVID-19 virus infection (4) Pneumonia (5) DMII (diabetes mellitus, type 2) (6) Protein malnutrition Assessment Azotemia, hypernatremia Hypoalbuminemia Staff Otilia bacteremia COVID-19 isolation, pneumonia, bilateral infiltrate Hypertension Diabetes mellitus History of smoking Plan March 11: Patient on TPN. Labs as of 11:15 AM is still pending. Continue per current treatment plan. Will check labs and adjust TPN as needed. Continue per consultants. March 10: Patient on TPN. Labs reviewed. Electrolytes overall stable. CPK is elevated. Will monitor electrolyte, CPK level, lipid panel. Continue per con sultantameka. Discussed with pharmacist. Discussed with RN. Nutritional evaluation noted. Previously: D5W 100 cc an hour Monitor electrolytes renal parameters TPN and Intralipid ordered Will follow Continue per consultants Dietary consult requested Subjective ROS Limited/Unobtainable: Yes Objective Objective Last 24 Hour Vital Signs Date Time Temp Pulse Resp B/P (MAP) Pulse Ox O2 Delivery O2 Flow Rate FiO2 03/11/20 08:00 100 03/11/20 08:00 97.0 84 20 145/97 (113) 94 03/11/20 08:00 90 03/11/20 08:00 Bi-pap 100.0 Bi-pap 03/11/20 06:45 104 26 92 100 03/11/20 04:00 100 03/11/20 04:00 98.1 95 20 140/92 (108) 94 82 03/11/20 04:00 Bi-pap 100.0 Bi-pap Bi-pap 03/11/20 03:52 92 03/11/20 03:28 93 22 94 100 03/11/20 00:00 Bi-pap 100.0 Bi-pap Bi-pap 03/11/20 00:00 98.0 82 24 145/96 (112) 96 82 03/10/20 23:43 86 03/10/20 23:08 73 17 97 100 03/10/20 20:00 Bi-pap 100.0 Bi-pap Bi-pap 03/10/20 20:00 98.2 77 22 155/95 (115) 95 77 03/10/20 20:00 100 03/10/20 19:36 84 24 91 100 03/10/20 19:24 79 03/10/20 16:00 Bi-pap 100.0 Bi-pap Bi-pap 03/10/20 16:00 97.1 67 19 138/100 (113) 93 67 03/10/20 16:00 100 03/10/20 16:00 87 03/10/20 15:15 70 22 95 100 03/10/20 12:00 100 03/10/20 12:00 63 03/10/20 12:00 Bi-pap 100.0 Bi-pap Bi-pap 03/10/20 12:00 97.1 71 20 150/72 (98) 97 97 03/10/20 11:45 67 21 96 100 Intake and Output 03/10/20 03/11/20 19:00 07:00 Intake Total 1020 ml 1510 ml Output Total 950 ml 1200 ml Balance 70 ml 310 ml Intake Oral 0 ml 50 ml IV Total 1020 ml 1460 ml Output Urine Total 950 ml 1200 ml Laboratory Tests 03/10/20 11:40: Vitamin D 25-Hydroxy [Pending], 25-Hydroxy Vitamin D2 [Pending], 25-Hydroxy Vitamin D3 [Pending] 03/10/20 23:18: POC Whole Blood Glucose 212H 03/11/20 05:15: White Blood Count 15.7H, Red Blood Count 4.89, Hemoglobin 15.5, Hematocrit 50.6, Mean Corpuscular Volume 103#H, Mean Corpuscular Hemoglobin 31.6H, Mean Corpuscular Hemoglobin Concent 30.6L, Red Cell Distribution Width 15.7H, Platelet Count 180, Mean Platelet Volume 9.2, Neutrophils (%) (Auto) , Lymphocytes (%) (Auto) , Monocytes (%) (Auto) , Eosinophils (%) (Auto) , Basophils (%) (Auto) , Differential Total Cells Counted 100, Neutrophils % (Manual) 95H, Lymphocytes % (Manual) 4L, Monocytes % (Manual) 1, Eosinophils % (Manual) 0, Basophils % (Manual) 0, Band Neutrophils 0, Platelet Estimate Adequate, Platelet Morphology Normal, Anisocytosis 1+, Sodium Level [Pending], Potassium Level [Pending], Chloride Level [Pending], Carbon Dioxide Level [Pending], Blood Urea Nitrogen [Pending], Creatinine [Pending], Estimat Glomerular Filtration Rate [Pending], Glucose Level [Pending], Uric Acid [Pending], Calcium Level [Pending], Phosphorus Level [Pending], Magnesium Level [Pending], Total Bilirubin [Pending], Aspartate Amino Transf (AST/SGOT) [Pending], Alanine Aminotransferase (ALT/SGPT) [Pending], Alkaline Phosphatase [Pending], Total Creatine Kinase 1172H, C-Reactive Protein, Quantitative [Pending], Pro-B-Type Natriuretic Peptide [Pending], Total Protein [Pending], Albumin [Pending], Globulin [Pending], Triglycerides Level [Pending], Cholesterol Level [Pending], LDL Cholesterol [Pending], HDL Cholesterol [Pending], Cholesterol/HDL Ratio [Pending] 03/11/20 05:23: POC Whole Blood Glucose 242H Height (Feet): 5 Height (Inches): 10.00 Weight (Pounds): 240 General Appearance: mild distress EENT: other - On BiPAP Cardiovascular: tachycardia Respiratory/Chest: decreased breath sounds Abdomen: distended Rubin Cooper MD Mar 11, 2020 11:18
--- NOTE | 2020-03-11 11:40 | NUR ---
NURSE NOTES:Called lab to follow up with patient lab results as they are still pending. Lab stated that the lab results look contaminated from the PICC lab draw. Another qa tech is going to re-draw the patient labs peripherally.
[2020-03-11 12:00] VITALS: BP 136/94
--- NOTE | 2020-03-11 12:53 | Pulmonology Progress Note ---
Subjective ROS Limited/Unobtainable: Yes Interval Events: tolerating BiPAP but desaturates when off BiPAP Constitutional: Reports: other - saturations better on bip; Denies: fever HEENT: Repors: no symptoms Respiratory: Reports: dry cough, shortness of breath Cardiovascular: Denies: no symptoms, chest pain, palpitations, other Gastrointestinal/Abdominal: Denies: nausea, vomiting, diarrhea Psychiatric: Denies: depression Skin: Denies: rash Musculoskeletal: Denies: pain Allergies: Coded Allergies: No Known Allergies (Unverified , 02/05/20) Objective Last 24 Hour Vital Signs Date Time Temp Pulse Resp B/P (MAP) Pulse Ox O2 Delivery O2 Flow Rate FiO2 03/11/20 12:00 100 03/11/20 12:00 Bi-pap 100.0 Bi-pap 03/11/20 12:00 97.0 85 20 136/94 (108) 90 03/11/20 08:00 100 03/11/20 08:00 97.0 84 20 145/97 (113) 94 03/11/20 08:00 90 03/11/20 08:00 Bi-pap 100.0 Bi-pap 03/11/20 06:45 104 26 92 100 03/11/20 04:00 100 03/11/20 04:00 98.1 95 20 140/92 (108) 94 82 03/11/20 04:00 Bi-pap 100.0 Bi-pap Bi-pap 03/11/20 03:52 92 03/11/20 03:28 93 22 94 100 03/11/20 00:00 Bi-pap 100.0 Bi-pap Bi-pap 03/11/20 00:00 98.0 82 24 145/96 (112) 96 82 03/10/20 23:43 86 03/10/20 23:08 73 17 97 100 03/10/20 20:00 Bi-pap 100.0 Bi-pap Bi-pap 03/10/20 20:00 98.2 77 22 155/95 (115) 95 77 03/10/20 20:00 100 03/10/20 19:36 84 24 91 100 03/10/20 19:24 79 03/10/20 16:00 Bi-pap 100.0 Bi-pap Bi-pap 03/10/20 16:00 97.1 67 19 138/100 (113) 93 67 03/10/20 16:00 100 03/10/20 16:00 87 03/10/20 15:15 70 22 95 100 Intake and Output 03/10/20 03/11/20 19:00 07:00 Intake Total 1020 ml 1510 ml Output Total 950 ml 1200 ml Balance 70 ml 310 ml Intake Oral 0 ml 50 ml IV Total 1020 ml 1460 ml Output Urine Total 950 ml 1200 ml General Appearance: WD/WN, no acute distress HEENT: normocephalic, atraumatic Respiratory: chest wall non-tender Cardiovascular: normal rate, regular rhythm Abdomen: normal bowel sounds, soft, non tender, other - obese Laboratory Tests 03/10/20 23:18: POC Whole Blood Glucose 212H 03/11/20 05:15: White Blood Count 15.7H, Red Blood Count 4.89, Hemoglobin 15.5, Hematocrit 50.6, Mean Corpuscular Volume 103#H, Mean Corpuscular Hemoglobin 31.6H, Mean Corpuscular Hemoglobin Concent 30.6L, Red Cell Distribution Width 15.7H, Platelet Count 180, Mean Platelet Volume 9.2, Neutrophils (%) (Auto) , Lymphocytes (%) (Auto) , Monocytes (%) (Auto) , Eosinophils (%) (Auto) , Basophils (%) (Auto) , Differential Total Cells Counted 100, Neutrophils % (Manual) 95H, Lymphocytes % (Manual) 4L, Monocytes % (Manual) 1, Eosinophils % (Manual) 0, Basophils % (Manual) 0, Band Neutrophils 0, Platelet Estimate Adequate, Platelet Morphology Normal, Anisocytosis 1+, Sodium Level [Pending], Potassium Level [Pending], Chloride Level [Pending], Carbon Dioxide Level [Pending], Blood Urea Nitrogen [Pending], Creatinine [Pending], Estimat Glomerular Filtration Rate [Pending], Glucose Level [Pending], Uric Acid [Pending], Calcium Level [Pending], Phosphorus Level [Pending], Magnesium Level [Pending], Total Bilirubin [Pending], Aspartate Amino Transf (AST/SGOT) [P ending], Alanine Aminotransferase (ALT/SGPT) [Pending], Alkaline Phosphatase [Pending], Total Creatine Kinase 1172H, C-Reactive Protein, Quantitative [Pending], Pro-B-Type Natriuretic Peptide [Pending], Total Protein [Pending], Albumin [Pending], Globulin [Pending], Triglycerides Level [Pending], Cholesterol Level [Pending], LDL Cholesterol [Pending], HDL Cholesterol [Pending], Cholesterol/HDL Ratio [Pending] 03/11/20 05:23: POC Whole Blood Glucose 242H Current Medications Medications (Trade) Dose Ordered Sig/Dennis Route PRN Reason Start Time Stop Time Status Last Admin Dose Admin Acetaminophen (Tylenol) 650 mg Q4H PRN ORAL Mild Pain (Pain Scale 1-3) 03/09/20 12:00 04/08/20 11:59 Bisacodyl (Dulcolax) 10 mg HSPRN PRN RECTAL Constipation 02/05/20 13:15 05/05/20 13:14 Chlorhexidine Gluconate (Marlen-Hex 2%) 1 applic DAILY@2000 TOPIC 02/14/20 20:00 05/14/20 19:59 03/10/20 20:44 Clonidine HCl (Catapres TTS-1) 1 patch QWEEK TDERMAL 03/09/20 21:00 06/07/20 20:59 03/09/20 21:00 Dextrose 1,000 ml @ 0 mls/hr Q24H PRN IV PN interrupted or unavailable 03/09/20 20:00 04/08/20 19:59 Dextrose (Dextrose 50%) 25 ml Q30M PRN IV Hypoglycemia 03/10/20 00:00 06/08/20 00:00 Dextrose (Dextrose 50%) 50 ml Q30M PRN IV Hypoglycemia 03/10/20 00:00 06/08/20 00:00 Fat Emulsion Intravenous 240 ml/Amino Acids/ Electrolytes/ Dextrose 2,040 ml @ 85 mls/hr Q24H IV 03/09/20 20:00 06/07/20 19:59 03/10/20 20:32 Hydralazine HCl (Apresoline) 10 mg Q6H PRN IV For High Blood Pressure 03/09/20 17:00 06/07/20 16:59 03/09/20 18:40 Ibuprofen (Motrin) 600 mg TIDPRN PRN ORAL Breakthrough Pain 02/17/20 19:30 03/18/20 19:29 02/21/20 20:56 Insulin Aspart (NovoLOG) Q6HR SUBQ 03/10/20 00:00 06/08/20 00:00 03/11/20 05:26 Lactulose (Cephulac) 20 gm THREE TIMES A DAY ORAL 03/08/20 13:00 04/07/20 12:59 03/09/20 13:42 Methylprednisolone Sodium Succinate (Solu-MEDROL) 40 mg EVERY 8 HOURS IVP 03/07/20 18:58 06/05/20 18:57 03/11/20 05:22 Polyethylene Glycol (Miralax) 17 gm BEDTIME ORAL 03/08/20 21:00 04/07/20 20:59 03/10/20 20:33 Promethazine HCl/ Codeine (Phenergan with Codeine) 5 ml Q4H PRN ORAL For Cough 02/22/20 12:15 03/23/20 12:14 02/26/20 04:05 Trimethoprim/ Sulfamethoxazole 20 ml/Dextrose 570 ml @ 380 mls/hr [id number] BACTRIM IV 03/09/20 16:00 03/16/20 15:59 03/11/20 09:21 Assessment/Plan Assessment/Plan 1.COVID-19 pneumonia. - last COVID-19 test positive after two negative tests - CTA 02/05/2020 ground-glass and consolidating infiltrates in the dependent portions of both lower lobes and to lesser degree the upper lobes consistent with bilateral pneumonia. No evidence of pulmonary embolus. - CXR 02/17/2020 worsening bilateral infiltrates; on broad spectrum abx per ID - CT chest 02/18 shows Increased extensive patchy ground-glass opacities and densities throughout the lungs, suggestive of Covid 19 infection. - currently on BiPAP. Saturations 90%. - Mycoplasma pneumoniae IgG 273; M. pneumoniae IgM titer within normal limits - D-dimer 0.90; on full dose Lovenox -Discontinued Decadron, now on Solumedrol - s/p remdesivir - now off Lasix per Dr. Awan due to elevated Na - is now net I/O negative -We will continue TPN He has had a progressive increase in LDH,-started on Bactrim due to concern about pneumocystis. - Looking unchanged today. 2. Initial negative rapid COVID-19 gene assay.- however repeat COVID-19 test positive 3. Smoker. 4. DVT ppx - on lovenox 5. Hypertension - on hydralazine, and norvasc - On cardiac diet 6. Blood culture positive for gram positive cocci staph aureus - on Abx - CT abd/pelvis showed no abscess per ID - TTE/ FERNY held off due to COVID-19 status - PICC line in place (Patient was seen earlier today. Signature timestamp does not reflect patient encounter time) John Mata MD . John Mata MD Mar 11, 2020 12:53
[2020-03-11 13:23] LABS: ANION GAP 9 mmol/L (5-15); BLOOD UREA NITROGEN 29 mg/dL (7-18); CALCIUM 8.8 MG/DL (8.5-10.1); CARBON DIOXIDE 24 MMOL/L (21-32); CHLORIDE 105 MMOL/L (98-107); SODIUM 138 MMOL/L (136-145)
[2020-03-11 13:27] LABS: ALANINE AMINOTRANSFERASE 137 U/L (12-78); ALBUMIN 2.3 G/DL (3.4-5.0); ALBUMIN/GLOBULIN RATIO 0.5 (1.0-2.7); ALKALINE PHOSPHATASE 128 U/L (46-116); ASPARTATE AMINO TRANSFERASE 122 U/L (15-37); BILIRUBIN,TOTAL 0.9 MG/DL (0.2-1.0)
--- NOTE | 2020-03-11 15:10 | NUR ---
NURSE NOTES:Radiology informed me that patient refused CXR and that they would attempt later today or tomorrow.
[2020-03-11 16:00] VITALS: BP 140/97
--- NOTE | 2020-03-11 16:10 | NUR ---
NURSE NOTES:patient requested RT to be present for oral care, had RT come in with me, so that I could provide oral care for the patient. Patient removed dried blood and secretions from his nose and mouth. Patient desaturated to 74%, had to put patient on BIPAP and perform oral care sporadically switching back to BIPAP until o2 saturation returned to above 90, oral care performed.
--- NOTE | 2020-03-11 18:40 | NUR ---
NURSE NOTES: and sandi attempted to clean the patient, managed to bathe the front part of the patient and put him in a clean gown. Noticed patient had pooped, Sandi helped move patient to his side so that I could clean, patient started shouting " do not touch me" and stated that he has pain when he turns on his side. At this point Poppy ACEVEDO came in and attempted to clean him without turning him, patient became agitated and shouted at Poppy to not touch him. Patient refused to be cleaned, instead requesting a blanket to cover him. Followed patient wishes as was unable to convince him to be cleaned.
--- NOTE | 2020-03-11 19:10 | NUR ---
NURSE HAND-OFF REPORT: Important Events on Shift: Patient Status: Guarded, desaturates without BIPAP, patient also refused CXR. Diet: NPO TPN running at 85ML/HR Pending Orders: chest X ray Pending Results/Labs: Pending MD notification: Latest Vital Signs: Temperature 96.7 , Pulse 101 , B/P 140 /97 , Respiratory Rate 20 , O2 SAT 91 , Room Air, O2 Flow Rate 100.0 . Vital Sign Comment: EKG Rhythm: Sinus Tachycardia Rhythm change?: N Notified?: Y Grecia INTERIANO Response: Message left await call Latest Hassan Fall Score: 45 Fall Risk: High Risk Safety Measures: Call light Within Reach, Bed Alarm Zone 1, Side Rails Side Rails x2, Bed position Low and Locked. Fall Precautions: Yellow Socks Patient Fall Education Report given to PRIYANKA Eubanks.
--- NOTE | 2020-03-11 19:37 | NUR ---
NURSE HAND-OFF REPORT: Important Events on Shift: Patient Status: Diet: Pending Orders: Pending Results/Labs: Pending MD notification: Latest Vital Signs: Temperature 96.7 , Pulse 101 , B/P 140 /97 , Respiratory Rate 20 , O2 SAT 91 , Room Air, O2 Flow Rate 100.0 . Vital Sign Comment: EKG Rhythm: Sinus Tachycardia Rhythm change?: N MD Notified?: Courtney Paige MD Response: Message left await call Latest Hassan Fall Score: 45 Fall Risk: High Risk Safety Measures: Call light Within Reach, Bed Alarm Zone 1, Side Rails Side Rails x2, Bed position Low and Locked. Fall Precautions: Yellow Socks Patient Fall Education Report given to .
--- NOTE | 2020-03-11 19:44 | NUR ---
NURSE NOTES: Received report from PRIYANKA Lyon. Pt is awake, A/Ox4, inappropriate, fatigued. No signs of cardiac distress, monitor shows SR. BiPAP 20/10, FiOw 100%, SpO2 90%, tachypneic and labored breathing. Denies pain. L UA PICC running TPN at 85ml/hr. Condom cath is intact and draining well to gravity. Bed alarm is on, locked, and in lowest position, call light within reach, side rails x2. Will continue to monitor. Will continue plan of care.
[2020-03-11 20:00] VITALS: BP 147/89
[2020-03-11] MEDS: Dyna-Hex 2% Top Sol 2oz TOPIC SCH (20:43)
[2020-03-11] MEDS: Miralax 17gm pkt ORAL SCH (20:43)
[2020-03-11] MEDS: Fat Emulsion Iv 20% 240 ML in Tpn 1,800 ML IV SCH (20:45)
--- NOTE | 2020-03-11 22:13 | NUR ---
NURSE NOTES: Administered PM meds. Pt refused to be turned, cleaned, or have pictures taken. Will attempt again at a later time.
--- NOTE | 2020-03-11 22:33 | Infectious Diseases Prog Note ---
Assessment/Plan Assessment/Plan ASSESSMENT AND PLAN: 1. staph aureus bacteremia/mssa, ? source, ? endocarditis, sepsis, leukocytosis, ? CAP, PJP less likely with HIV negative and steroids < 1 month covid-19 +, hypoxia, sob, chest x-ray worse, ? PE, ? HCAP/aspiration pna recurrent fevers - ? fungal, ? OI leukocytosis noted - ? new infection, ? steroids cocci serology negative, legionella negative, beta 1,3 D-glucan wnl, Il-16 - 13.7 - s/p micafungin - start bactrim for empiric pneumocystis pna treatment - day # 30 mssa tx post neg blood cultures - will be covered by bactrim also - saturations improved, on solumedrol - monitor hypoxia, labs and chest x-ray - CT imaging noted - leukocytosis noted and likely secondary to steroids, cultures negative, fevers better - TPN to be started, d/w RN 2. covid-19 isolation 3. Hypertension history. Blood pressure treatment primary care team. 4. Elevated blood sugars. Blood sugar treatment per primary care team. 5. No known drug allergies. 6. Social history is positive for smoking. 7. Family history is noncontributory. 8. MAR was noted. 9. Case was discussed with RN. 10. Continue treatment per primary consultants. Subjective Constitutional: Reports: fatigue HEENT: Reports: congestion Respiratory: Reports: shortness of breath Cardiovascular: Denies: chest pain Gastrointestinal/Abdominal: Denies: nausea, vomiting, diarrhea Genitourinary: Reports: other Neurologic: Denies: headache Psychiatric: Denies: depression Skin: Denies: rash Hematologic: Denies: bleeding Musculoskeletal: Denies: pain Allergies: Coded Allergies: No Known Allergies (Unverified , 02/05/20) Objective Last 24 Hour Vital Signs Date Time Temp Pulse Resp B/P (MAP) Pulse Ox O2 Delivery O2 Flow Rate FiO2 03/11/20 20:00 98.7 78 22 147/89 (108) 95 03/11/20 20:00 100 03/11/20 20:00 Bi-pap 100.0 Bi-pap 03/11/20 20:00 83 03/11/20 19:47 87 19 95 100 03/11/20 16:00 101 03/11/20 16:00 Bi-pap 100.0 Bi-pap 03/11/20 16:00 100 03/11/20 16:00 96.7 102 20 140/97 (111) 91 03/11/20 15:20 93 24 92 100 03/11/20 12:00 100 03/11/20 12:00 Bi-pap 100.0 Bi-pap 03/11/20 12:00 87 03/11/20 12:00 97.0 85 20 136/94 (108) 90 03/11/20 10:45 93 24 94 100 03/11/20 08:00 100 03/11/20 08:00 97.0 84 20 145/97 (113) 94 03/11/20 08:00 90 03/11/20 08:00 Bi-pap 100.0 Bi-pap 03/11/20 06:45 104 26 92 100 03/11/20 04:00 100 03/11/20 04:00 98.1 95 20 140/92 (108) 94 82 03/11/20 04:00 Bi-pap 100.0 Bi-pap Bi-pap 03/11/20 03:52 92 03/11/20 03:28 93 22 94 100 03/11/20 00:00 Bi-pap 100.0 Bi-pap Bi-pap 03/11/20 00:00 98.0 82 24 145/96 (112) 96 82 03/10/20 23:43 86 03/10/20 23:08 73 17 97 100 Height (Feet): 5 Height (Inches): 10.00 Weight (Pounds): 240 General Appearance: no acute distress HEENT: normocephalic, atraumatic, anicteric Respiratory/Chest: crackles/rales, rhonchi - bilaterally Cardiovascular: normal rate, regular rhythm, no gallop/murmur Abdomen: normal bowel sounds, soft, non tender, no organomegaly, non distended Genitourinary: other - no joseph Extremities: no cyanosis Skin: no rash 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 The infiltrates are typical for Covid 19. No evidence of pulmonary embolus. CT abdomen and pelvis: IMPRESSION: 1. Scattered hepatic hypodense lesions, too small to characterize on this examination without intravenous contrast. 2. Colonic diverticulosis without evidence of acute diverticulitis. 3. Scattered enlarged mesenteric lymph nodes, presumably reactive. teral pneumonia. The infiltrates are typical for Covid 19. No evidence of pulmonary embolus. Chest x-ray - 12/19/19 - Indication: Shortness of breath Technique: One view of the chest Comparison: 02/17/2020 Findings: Interim worsening of bilateral infiltrates, particularly on the right. The heart is borderline enlarged. The pleural spaces are clear. Left arm PICC is again demonstrated Impression: Worsening bilateral infiltrates over one day, likely pneumonia CT chest - 02/19/20 - IMPRESSION: Increased extensive patchy ground-glass opacities and densities throughout the lungs, suggestive of Covid 19 infection. Chest x-ray 02/23/20 - Procedure: XRAY Chest 1v As Indication: Reason For Exam: INFECT Technique: One view of the chest Comparison: 02/20/2020 Findings: Allowing for differences in exposure technique, bilateral mid and lower lung infiltrates are probably unchanged. The heart size is normal. The pleural spaces are clear. Impression: Unchanged, over 4 days, findings as above. Chest x-ray - 02/25/20 - FINDINGS: Lungs: Interval slightly worsening bilateral airspace disease. Pleural space: Unremarkable. No pneumothorax. Heart: Unremarkable. No cardiomegaly. Mediastinum: Unremarkable. Bones/joints: Unremarkable. IMPRESSION: Interval slightly worsening bilateral airspace disease. Chest x-ray - 03/02/20 - Procedure: XRAY Chest 1v Indication: Shortness of breath Technique: One view of the chest Comparison: 02/25/2020 Findings: Bilateral interstitial and airspace infiltrates are unchanged. The heart size is normal. Left arm PICC is again demonstrated Impression: Unchanged, over one day, findings as above. Chest x-ray - 03/06/20 - Procedure: XRAY Chest 1v Indication: Shortness of breath Technique: One view of the chest Comparison: 03/02/2020 Findings: Bilateral infiltrates are unchanged. Normal heart size. Pleural spaces are clear Impression: Unchanged, over 4 days, findings as above. Microbiology Date/Time Source Procedure Growth Status 03/03/20 23:00 Blood Blood Culture - Final Bacillus Sp Not B. Anthracis Complete 02/17/20 19:00 Urine,Clean Catch Urine Culture - Final NO GROWTH AFTER 48 HOURS Complete 02/10/20 06:30 Nasopharynx SARS-CoV-2 RdRp Gene Assay - Final Complete Laboratory Tests Test 03/10/20 23:18 03/11/20 05:15 03/11/20 05:23 03/11/20 12:45 POC Whole Blood Glucose 212 MG/DL (74-106) H 242 MG/DL (74-106) H White Blood Count 15.7 K/UL (4.8-10.8) H Red Blood Count 4.89 M/UL (4.70-6.10) Hemoglobin 15.5 G/DL (14.2-18.0) Hematocrit 50.6 % (42.0-52.0) Mean Corpuscular Volume 103 FL (80-99) #H Mean Corpuscular Hemoglobin 31.6 PG (27.0-31.0) H Mean Corpuscular Hemoglobin Concent 30.6 G/DL (32.0-36.0) L Red Cell Distribution Width 15.7 % (11.6-14.8) H Platelet Count 180 K/UL (150-450) Mean Platelet Volume 9.2 FL (6.5-10.1) Neutrophils (%) (Auto) % (45.0-75.0) Lymphocytes (%) (Auto) % (20.0-45.0) Monocytes (%) (Auto) % (1.0-10.0) Eosinophils (%) (Auto) % (0.0-3.0) Basophils (%) (Auto) % (0.0-2.0) Differential Total Cells Counted 100 Neutrophils % (Manual) 95 % (45-75) H Lymphocytes % (Manual) 4 % (20-45) L Monocytes % (Manual) 1 % (1-10) Eosinophils % (Manual) 0 % (0-3) Basophils % (Manual) 0 % (0-2) Band Neutrophils 0 % (0-8) Platelet Estimate Adequate Platelet Morphology Normal Anisocytosis 1+ Sodium Level Pending 138 MMOL/L (136-145) Potassium Level Pending 5.0 MMOL/L (3.5-5.1) Chloride Level Pending 105 MMOL/L (98-107) Carbon Dioxide Level Pending 24 MMOL/L (21-32) Blood Urea Nitrogen Pending 29 mg/dL (7-18) H Creatinine Pending 1.0 MG/DL (0.55-1.30) Estimat Glomerular Filtration Rate Pending > 60 mL/min (>60) Glucose Level Pending 323 MG/DL (74-106) #H Uric Acid Pending Calcium Level Pending 8.8 MG/DL (8.5-10.1) Phosphorus Level Pending Magnesium Level Pending Total Bilirubin Pending 0.9 MG/DL (0.2-1.0) Aspartate Amino Transf (AST/SGOT) Pending 122 U/L (15-37) H Alanine Aminotransferase (ALT/SGPT) Pending 137 U/L (12-78) H Alkaline Phosphatase Pending 128 U/L (46-116) H Total Creatine Kinase 1172 U/L (26-308) H C-Reactive Protein, Quantitative Pending Pro-B-Type Natriuretic Peptide Pending Total Protein Pending 6.5 G/DL (6.4-8.2) Albumin Pending 2.3 G/DL (3.4-5.0) L Globulin Pending 4.2 g/dL Triglycerides Level Pending Cholesterol Level Pending LDL Cholesterol Pending HDL Cholesterol Pending Cholesterol/HDL Ratio Pending Anion Gap 9 mmol/L (5-15) Albumin/Globulin Ratio 0.5 (1.0-2.7) L Current Medications Medications (Trade) Dose Ordered Sig/Dennis Route PRN Reason Start Time Stop Time Status Last Admin Dose Admin Acetaminophen (Tylenol) 650 mg Q4H PRN ORAL Mild Pain (Pain Scale 1-3) 03/09/20 12:00 04/08/20 11:59 Bisacodyl (Dulcolax) 10 mg HSPRN PRN RECTAL Constipation 02/05/20 13:15 05/05/20 13:14 Chlorhexidine Gluconate (Marlen-Hex 2%) 1 applic DAILY@2000 TOPIC 02/14/20 20:00 05/14/20 19:59 03/11/20 20:43 Clonidine HCl (Catapres TTS-1) 1 patch QWEEK TDERMAL 03/09/20 21:00 06/07/20 20:59 03/09/20 21:00 Dextrose 1,000 ml @ 0 mls/hr Q24H PRN IV PN interrupted or unavailable 03/09/20 20:00 04/08/20 19:59 Dextrose (Dextrose 50%) 25 ml Q30M PRN IV Hypoglycemia 03/10/20 00:00 06/08/20 00:00 Dextrose (Dextrose 50%) 50 ml Q30M PRN IV Hypoglycemia 03/10/20 00:00 06/08/20 00:00 Fat Emulsion Intravenous 240 ml/Amino Acids/ Electrolytes/ Dextrose 2,040 ml @ 85 mls/hr Q24H IV 03/09/20 20:00 06/07/20 19:59 03/11/20 20:45 Hydralazine HCl (Apresoline) 10 mg Q6H PRN IV For High Blood Pressure 03/09/20 17:00 06/07/20 16:59 03/09/20 18:40 Ibuprofen (Motrin) 600 mg TIDPRN PRN ORAL Breakthrough Pain 02/17/20 19:30 03/18/20 19:29 02/21/20 20:56 Insulin Aspart (NovoLOG) Q6HR SUBQ 03/10/20 00:00 06/08/20 00:00 03/11/20 19:03 Lactulose (Cephulac) 20 gm THREE TIMES A DAY ORAL 03/08/20 13:00 04/07/20 12:59 03/09/20 13:42 Methylprednisolone Sodium Succinate (Solu-MEDROL) 40 mg EVERY 8 HOURS IVP 03/07/20 18:58 06/05/20 18:57 03/11/20 21:52 Polyethylene Glycol (Miralax) 17 gm BEDTIME ORAL 03/08/20 21:00 04/07/20 20:59 03/10/20 20:33 Promethazine HCl/ Codeine (Phenergan with Codeine) 5 ml Q4H PRN ORAL For Cough 02/22/20 12:15 03/23/20 12:14 02/26/20 04:05 Trimethoprim/ Sulfamethoxazole 20 ml/Dextrose 570 ml @ 380 mls/hr [id number] BACTRIM IV 03/09/20 16:00 03/16/20 15:59 03/11/20 16:13 Kisha Salazar MD Mar 11, 2020 22:33
[2020-03-12] VITALS: BP 145/95
--- NOTE | 2020-03-12 00:02 | NUR ---
NURSE NOTES: Attempted to collect induced sputum from pt. Pt unable to induce sputum due to dryness and lack of strength. Will attempt again at a later time
--- NOTE | 2020-03-12 02:32 | NUR ---
NURSE NOTES: While cleaning, pt had a coughing fit for 2 minutes, desaturating to 78%. Weak cough with no sputum noted. Asked to delay cleaning for a few hours. Will attempt at a later time.
--- NOTE | 2020-03-12 03:19 | NUR ---
NURSE NOTES: Asked pt permission to clean him. Pt is currently sitting in his own BM and urine. Refused to be cleaned again. Asked pt for induced sputum for sputum culture. Refused again. SpO2 stable at 94%. Will attempt again at a later time.
[2020-03-12 04:00] VITALS: BP 140/88
[2020-03-12] MEDS: Solu-MEDROL 40mg Inj IVP SCH ×3 (05:26→22:20)
[2020-03-12] MEDS: NovoLOG Insulin Flexpen SUBQ SCH ×3 (05:26→18:01)
--- NOTE | 2020-03-12 05:44 | NUR ---
NURSE NOTES: Went into pt's room to collect lab samples and blood culture from PICC line. Tried to clean pt again, pt refused again. RN explained to pt the importance of cleaning the feces and urine due to stage 2 pressure wound in the sacrum. Pt still refused despite education and wet and dirty linens. Also refused specimen collection. Will endorse to morning shift. Will continue to monitor.
--- NOTE | 2020-03-12 06:37 | General Progress Note ---
Subjective ROS Limited/Unobtainable: Yes Allergies: Coded Allergies: No Known Allergies (Unverified , 02/05/20) Objective Last 24 Hour Vital Signs Date Time Temp Pulse Resp B/P (MAP) Pulse Ox O2 Delivery O2 Flow Rate FiO2 03/12/20 04:00 100 03/12/20 04:00 97.8 86 22 140/88 (105) 92 03/12/20 04:00 78 03/12/20 04:00 Bi-pap 100.0 Bi-pap 03/12/20 02:31 89 31 90 100 03/12/20 00:00 100 03/12/20 00:00 Bi-pap 100.0 Bi-pap 03/12/20 00:00 82 03/12/20 00:00 97.5 86 21 145/95 (112) 96 03/11/20 23:46 86 37 91 100 03/11/20 20:00 98.7 78 22 147/89 (108) 95 03/11/20 20:00 100 03/11/20 20:00 Bi-pap 100.0 Bi-pap 03/11/20 20:00 83 03/11/20 19:47 87 19 95 100 03/11/20 16:00 101 03/11/20 16:00 Bi-pap 100.0 Bi-pap 03/11/20 16:00 100 03/11/20 16:00 96.7 102 20 140/97 (111) 91 03/11/20 15:20 93 24 92 100 03/11/20 12:00 100 03/11/20 12:00 Bi-pap 100.0 Bi-pap 03/11/20 12:00 87 03/11/20 12:00 97.0 85 20 136/94 (108) 90 03/11/20 10:45 93 24 94 100 03/11/20 08:00 100 03/11/20 08:00 97.0 84 20 145/97 (113) 94 03/11/20 08:00 90 03/11/20 08:00 Bi-pap 100.0 Bi-pap 03/11/20 06:45 104 26 92 100 Intake and Output 03/11/20 03/12/20 19:00 07:00 Intake Total 1190 ml 850 ml Output Total 1600 ml 300 ml Balance -410 ml 550 ml IV Total 1190 ml 850 ml Output Urine Total 1600 ml 300 ml # Voids 2 # Bowel Movements 1 Laboratory Tests 03/11/20 12:45: Sodium Level 138, Potassium Level 5.0, Chloride Level 105, Carbon Dioxide Level 24, Anion Gap 9, Blood Urea Nitrogen 29H, Creatinine 1.0, Estimat Glomerular Filtration Rate > 60, Glucose Level 323#H, Calcium Level 8.8, Total Bilirubin 0.9, Aspartate Amino Transf (AST/SGOT) 122H, Alanine Aminotransferase (ALT/SGPT) 137H, Alkaline Phosphatase 128H, Total Protein 6.5, Albumin 2.3L, Globulin 4.2, Albumin/Globulin Ratio 0.5L 03/11/20 23:13: POC Whole Blood Glucose 260H 03/12/20 05:00: Sodium Level [Pending], Potassium Level [Pending], Chloride Level [Pending], Carbon Dioxide Level [Pending], Blood Urea Nitrogen [Pending], Creatinine [Pending], Estimat Glomerular Filtration Rate [Pending], Glucose Level [Pending], Calcium Level [Pending], Total Bilirubin [Pending], Aspartate Amino Transf (AST/SGOT) [Pending], Alanine Aminotransferase (ALT/SGPT) [Pending], Alkaline Phosphatase [Pending], Total Protein [Pending], Albumin [Pending], Globulin [Pending], White Blood Count [Pending], Red Blood Count [Pending], Hemoglobin [Pending], Hematocrit [Pending], Mean Corpuscular Volume [Pending], Mean Corpuscular Hemoglobin [Pending], Mean Corpuscular Hemoglobin Concent [Pending], Red Cell Distribution Width [Pending], Platelet Count [Pending], Mean Platelet Volume [Pending], Neutrophils (%) (Auto) [Pending], Lymphocytes (%) (Auto) [Pending], Monocytes (%) (Auto) [Pending], Eosinophils (%) (Auto) [Pending], Basophils (%) (Auto) [Pending], Uric Acid [Pending], Phosphorus Level [Pending], Magnesium Level [Pending], Total Creatine Kinase [Pending], C- Reactive Protein, Quantitative [Pending], Pro-B-Type Natriuretic Peptide [Pending], Triglycerides Level [Pending], Cholesterol Level [Pending], LDL Cholesterol [Pending], HDL Cholesterol [Pending], Cholesterol/HDL Ratio [Pending] 03/12/20 05:05: POC Whole Blood Glucose 278H 03/12/20 05:09: POC Whole Blood Glucose 299H Height (Feet): 5 Height (Inches): 10.00 Weight (Pounds): 240 General Appearance: mild distress EENT: normal ENT inspection Neck: supple Cardiovascular: tachycardia Respiratory/Chest: decreased breath sounds Abdomen: soft, hypoactive bowel sounds Extremities: non-tender Assessment/Plan Status: not improved, unchanged Assessment/Plan: covid + on BIPAP DM HTN FTT constipation not stable for PEG could not tolerate NGT placement TPN for now bowel regimen covid care rising LFTS>>> will monitor will Da Wilson MD Mar 12, 2020 06:37
[2020-03-12 06:54] LABS: HEMATOCRIT 47.8 % (42.0-52.0); HEMOGLOBIN 15.3 G/DL (14.2-18.0); MEAN CORPUSCULAR VOLUME 90 FL (80-99); PLATELET COUNT 169 K/UL (150-450); RED BLOOD COUNT 5.33 M/UL (4.70-6.10); RED CELL DISTRIBUTION WIDTH 13.8 % (11.6-14.8); WHITE BLOOD COUNT 16.9 K/UL (4.8-10.8)
[2020-03-12 07:04] LABS: ALANINE AMINOTRANSFERASE 144 U/L (12-78); ALBUMIN 2.3 G/DL (3.4-5.0); ALBUMIN/GLOBULIN RATIO 0.5 (1.0-2.7); ALKALINE PHOSPHATASE 132 U/L (46-116); ANION GAP 5 mmol/L (5-15); ASPARTATE AMINO TRANSFERASE 76 U/L (15-37); BILIRUBIN,TOTAL 0.7 MG/DL (0.2-1.0); BLOOD UREA NITROGEN 28 mg/dL (7-18); CALCIUM 9.1 MG/DL (8.5-10.1); CARBON DIOXIDE 29 MMOL/L (21-32); CHLORIDE 102 MMOL/L (98-107); CHOLESTEROL 184 MG/DL (< 200); HDL CHOLESTEROL 29 MG/DL (40-60); POTASSIUM 5.3 MMOL/L (3.5-5.1); SODIUM 136 MMOL/L (136-145); TRIGLYCERIDES 303 MG/DL (30-150)
--- NOTE | 2020-03-12 07:14 | Pulmonology Progress Note ---
Subjective ROS Limited/Unobtainable: Yes Interval Events: tolerating BiPAP but desaturates when off BiPAP Constitutional: Reports: fatigue HEENT: Repors: no symptoms Respiratory: Reports: dry cough, shortness of breath Cardiovascular: Denies: no symptoms, chest pain, palpitations, other Gastrointestinal/Abdominal: Denies: nausea, vomiting, diarrhea Psychiatric: Denies: depression Skin: Denies: rash Musculoskeletal: Denies: pain Allergies: Coded Allergies: No Known Allergies (Unverified , 02/05/20) Objective Last 24 Hour Vital Signs Date Time Temp Pulse Resp B/P (MAP) Pulse Ox O2 Delivery O2 Flow Rate FiO2 03/12/20 04:00 100 03/12/20 04:00 97.8 86 22 140/88 (105) 92 03/12/20 04:00 78 03/12/20 04:00 Bi-pap 100.0 Bi-pap 03/12/20 02:31 89 31 90 100 03/12/20 00:00 100 03/12/20 00:00 Bi-pap 100.0 Bi-pap 03/12/20 00:00 82 03/12/20 00:00 97.5 86 21 145/95 (112) 96 03/11/20 23:46 86 37 91 100 03/11/20 20:00 98.7 78 22 147/89 (108) 95 03/11/20 20:00 100 03/11/20 20:00 Bi-pap 100.0 Bi-pap 03/11/20 20:00 83 03/11/20 19:47 87 19 95 100 03/11/20 16:00 101 03/11/20 16:00 Bi-pap 100.0 Bi-pap 03/11/20 16:00 100 03/11/20 16:00 96.7 102 20 140/97 (111) 91 03/11/20 15:20 93 24 92 100 03/11/20 12:00 100 03/11/20 12:00 Bi-pap 100.0 Bi-pap 03/11/20 12:00 87 03/11/20 12:00 97.0 85 20 136/94 (108) 90 03/11/20 10:45 93 24 94 100 03/11/20 08:00 100 03/11/20 08:00 97.0 84 20 145/97 (113) 94 03/11/20 08:00 90 03/11/20 08:00 Bi-pap 100.0 Bi-pap Intake and Output 03/11/20 03/12/20 19:00 07:00 Intake Total 1190 ml 935 ml Output Total 1600 ml 300 ml Balance -410 ml 635 ml IV Total 1190 ml 935 ml Output Urine Total 1600 ml 300 ml # Voids 2 # Bowel Movements 1 General Appearance: WD/WN, no acute distress HEENT: normocephalic, atraumatic Respiratory: chest wall non-tender Cardiovascular: normal rate, regular rhythm Abdomen: normal bowel sounds, soft, non tender, other - obese Laboratory Tests 03/11/20 12:45: Sodium Level 138, Potassium Level 5.0, Chloride Level 105, Carbon Dioxide Level 24, Anion Gap 9, Blood Urea Nitrogen 29H, Creatinine 1.0, Estimat Glomerular Filtration Rate > 60, Glucose Level 323#H, Calcium Level 8.8, Total Bilirubin 0.9, Aspartate Amino Transf (AST/SGOT) 122H, Alanine Aminotransferase (ALT/SGPT) 137H, Alkaline Phosphatase 128H, Total Protein 6.5, Albumin 2.3L, Globulin 4.2, Albumin/Globulin Ratio 0.5L 03/11/20 23:13: POC Whole Blood Glucose 260H 03/12/20 05:00: Sodium Level 136, Potassium Level 5.3H, Chloride Level 102, Carbon Dioxide Level 29, Anion Gap 5, Blood Urea Nitrogen 28H, Creatinine 1.0, Estimat Glomerular Filtration Rate > 60, Glucose Level 260H, Calcium Level 9.1, Total Bilirubin 0.7, Aspartate Amino Transf (AST/SGOT) 76H, Alanine Aminotransferase (ALT/SGPT) 144H, Alkaline Phosphatase 132H, Total Protein 6.5, Albumin 2.3L, Globulin 4.2, Albumin/Globulin Ratio 0.5L, White Blood Count 16.9H, Red Blood Count 5.33, Hemoglobin 15.3, Hematocrit 47.8, Mean Corpuscular Volume 90#, Mean Corpuscular Hemoglobin 28.6, Mean Corpuscular Hemoglobin Concent 31.9L, Red Cell Distribution Width 13.8, Platelet Count 169, Mean Platelet Volume 9.5, Neutrophils (%) (Auto) , Lymphocytes (%) (Auto) , Monocytes (%) (Auto) , Eosinophils (%) (Auto) , Basophils (%) (Auto) , Neutrophils % (Manual) [Pending], Lymphocytes % (Manual) [Pending], Platelet Estimate [Pending], Platelet Morphology [Pending], Uric Acid [Pending], Phosphorus Level [Pending], Magnesium Level [Pending], Total Creatine Kinase [Pending], C-Reactive Protein, Quantitative [Pending], Pro-B-Type Natriuretic Peptide [Pending], Triglycerides Level 303H, Cholesterol Level 184, LDL Cholesterol 109H, HDL Cholesterol 29L, Cholesterol/HDL Ratio 6.3H 03/12/20 05:05: POC Whole Blood Glucose 278H 03/12/20 05:09: POC Whole Blood Glucose 299H Current Medications Medications (Trade) Dose Ordered Sig/Dennis Route PRN Reason Start Time Stop Time Status Last Admin Dose Admin Acetaminophen (Tylenol) 650 mg Q4H PRN ORAL Mild Pain (Pain Scale 1-3) 03/09/20 12:00 04/08/20 11:59 Bisacodyl (Dulcolax) 10 mg HSPRN PRN RECTAL Constipation 02/05/20 13:15 05/05/20 13:14 Chlorhexidine Gluconate (Marlen-Hex 2%) 1 applic DAILY@2000 TOPIC 02/14/20 20:00 05/14/20 19:59 03/11/20 20:43 Clonidine HCl (Catapres TTS-1) 1 patch QWEEK TDERMAL 03/09/20 21:00 06/07/20 20:59 03/09/20 21:00 Dextrose 1,000 ml @ 0 mls/hr Q24H PRN IV PN interrupted or unavailable 03/09/20 20:00 04/08/20 19:59 Dextrose (Dextrose 50%) 25 ml Q30M PRN IV Hypoglycemia 03/10/20 00:00 06/08/20 00:00 Dextrose (Dextrose 50%) 50 ml Q30M PRN IV Hypoglycemia 03/10/20 00:00 06/08/20 00:00 Fat Emulsion Intravenous 240 ml/Amino Acids/ Electrolytes/ Dextrose 2,040 ml @ 85 mls/hr Q24H IV 03/09/20 20:00 06/07/20 19:59 03/11/20 20:45 Hydralazine HCl (Apresoline) 10 mg Q6H PRN IV For High Blood Pressure 03/09/20 17:00 06/07/20 16:59 03/09/20 18:40 Ibuprofen (Motrin) 600 mg TIDPRN PRN ORAL Breakthrough Pain 02/17/20 19:30 03/18/20 19:29 02/21/20 20:56 Insulin Aspart (NovoLOG) Q6HR SUBQ 03/10/20 00:00 06/08/20 00:00 03/12/20 05:26 Lactulose (Cephulac) 20 gm THREE TIMES A DAY ORAL 03/08/20 13:00 04/07/20 12:59 03/09/20 13:42 Methylprednisolone Sodium Succinate (Solu-MEDROL) 40 mg EVERY 8 HOURS IVP 03/07/20 18:58 06/05/20 18:57 03/12/20 05:26 Polyethylene Glycol (Miralax) 17 gm BEDTIME ORAL 03/08/20 21:00 04/07/20 20:59 03/10/20 20:33 Promethazine HCl/ Codeine (Phenergan with Codeine) 5 ml Q4H PRN ORAL For Cough 02/22/20 12:15 03/23/20 12:14 02/26/20 04:05 Trimethoprim/ Sulfamethoxazole 20 ml/Dextrose 570 ml @ 380 mls/hr [id number]-FP BACTRIM IV 03/09/20 16:00 03/16/20 15:59 03/11/20 23:09 Assessment/Plan Assessment/Plan 1.COVID-19 pneumonia. - last COVID-19 test positive after two negative tests - CTA 02/05/2020 ground-glass and consolidating infiltrates in the dependent portions of both lower lobes and to lesser degree the upper lobes consistent with bilateral pneumonia. No evidence of pulmonary embolus. - CXR 02/17/2020 worsening bilateral infiltrates; on broad spectrum abx per ID - CT chest 02/18 shows Increased extensive patchy ground-glass opacities and densities throughout the lungs, suggestive of Covid 19 infection. - currently on BiPAP. Saturations 90%. - Mycoplasma pneumoniae IgG 273; M. pneumoniae IgM titer within normal limits - D-dimer 0.90; on full dose Lovenox -Discontinued Decadron, now on Solumedrol - s/p remdesivir - now off Lasix per Dr. Awan due to elevated Na - is now net I/O negative -We will continue TPN He has had a progressive increase in LDH,-started on Bactrim due to concern about pneumocystis. - Looking unchanged today. 2. Initial negative rapid COVID-19 gene assay.- however repeat COVID-19 test positive 3. Smoker. 4. DVT ppx - on lovenox 5. Hypertension - on hydralazine, and norvasc - On cardiac diet 6. Blood culture positive for gram positive cocci staph aureus - on Abx - CT abd/pelvis showed no abscess per ID - TTE/ FERNY held off due to COVID-19 status - PICC line in place (Patient was seen earlier today. Signature timestamp does not reflect patient encounter time) John Mata MD . John Mata MD Mar 12, 2020 07:14
--- NOTE | 2020-03-12 07:29 | NUR ---
NURSE HAND-OFF REPORT: Important Events on Shift:[Refused to be cleaned, refused pictures, unable to obtain sputum specimen] Patient Status: [Poor] Diet: [TPN 85cc/hr] Pending Orders: [NA] Pending Results/Labs:[NA] Pending MD notification:[NA] Latest Vital Signs: Temperature 97.8 , Pulse 86 , B/P 140 /88 , Respiratory Rate 22 , O2 SAT 92 , Room Air, O2 Flow Rate 100.0 . Vital Sign Comment: [Stable] EKG Rhythm: Sinus Rhythm Rhythm change?: N MD Notified?: Courtney Paige MD Response: Message left await call Latest Hassan Fall Score: 45 Fall Risk: High Risk Safety Measures: Call light Within Reach, Bed Alarm Zone 1, Side Rails Side Rails x2, Bed position Low and Locked. Fall Precautions: Yellow Socks Patient Fall Education Report given to [PRIYANKA Tsang].
[2020-03-12 07:30] LABS: CREATINE KINASE 1207 U/L (26-308); PHOSPHORUS 3.3 MG/DL (2.5-4.9)
--- NOTE | 2020-03-12 07:30 | NUR ---
NURSE NOTES: Received patient in bed awake. Bipap in place, with labored breathing. Easily SOB upon exertion. PICC line intact and patent. Urine pouch intact, draining yellow colored urine. Patient pad soiled, RN offered to change him but he said not now because he is still short of breath from coughing. RN to come back later. HOB elevated. Bed locked in low position. Call light within reach. Will continue plan of care.
--- NOTE | 2020-03-12 07:49 | NUR ---
RD ASSESSMENT & RECOMMENDATIONS SEE CARE ACTIVITY FOR COMPLETE ASSESSMENT DAILY ESTIMATED NEEDS: Needs based on Pulmonary, cardiac 81kg abw 23-28 kcals/kg 0424-3910 total kcals 1.25-1.5 g protein/kg 101-122 g total protein 25-30 mL/kg 5395-6847 total fluid mLs NUTRITION DIAGNOSIS: * Inadequate oral intake R/T clinical and respiratory status as evidenced by COVID-19 ++, on continuous BIPAP, prolonged meal refusals. * Decreased sodium and fat needs r/t HTN and obesity as evidenced by pt w/ cardiac history, elev BP (159/98-> now improved, on BP meds and diuretics), BMI >30, obese per guidelines. PO DIET RECOMMENDATIONS: Liberalized REGULAR w/ poor PO at this time (texture per HR ASSOCIATE) ENTERAL NUTRITION RECOMMENDATIONS: Glucerna 1.5 goal of 56ml/hr x24 hrs to meet needs to provide 1344ml, 2016 kcal, 111g pro, 1020ml free H2O - If medically able, rec non oral feeds. - GOAL ABOVE IF TOLERATED WITHOUT ASPIRATION/ Otherwise run at rate tolerated to provide partial nutrition and maintain gut integrity. - Start @16ml for 6 hrs, advance as tolerated 10ml/hr q4-6 hrs to goal - Flush per . HOB over 30 degrees. - With non oral feeds rec added Vit C . PARENTERAL NUTRITION RECOMMENDATIONS: D/AA Rate: 75 IL Rate: 9 Total Rate: 84 Volume: 2016 % Dextrose: 17 % AA: 5.5 Energy (kcals/kg): 1863 Protein (g/kg protein): 99 Nonprotein KCALS: 1472.4 GIR (mg CHO/kg/min): 2 % Fat KCALS: 23 NPC: N Ratio: 93:1 TPN Comment: - Rec TF change d/t elevated BG and LFT's - D17 + AA5.5 @75ml/hr with IL20% @9ml/hr- all 3:1 - Monitor BG, need for niss - Check lytes daily, replete as needed ADDITIONAL RECOMMENDATIONS: 1) Maintain calibrated bedscale wts; obtain a standing wt as able 2) Obtain HgA1C for eval 3) Monitor PO intake: decreased intake on 02/14 per EMR Refusal of meals x 12 days Non oral feeds if medically appropriate w/ Bipap. 4) Monitor hydration status- now on TPN 5) Consider TPN -> now ordered 03/09
[2020-03-12 08:00] VITALS: BP 148/96
[2020-03-12] MEDS: Lactulose 20gm/30ml UDC ORAL SCH ×4 (09:00→17:07)
[2020-03-12] MEDS: Promethazine/Codeine 5ml UD ORAL PRN (09:00)
[2020-03-12] MEDS: Bactrim 20ml in D5W 550ml IV SCH ×2 (09:00→16:54)
--- NOTE | 2020-03-12 09:29 | NUR ---
NURSE NOTES: RN offered to change soiled pad, patient said later, still with labored breathing. RN to come back.
--- NOTE | 2020-03-12 09:39 | Diagnostic Imaging Report ---
EXAM: XR Chest, 1 View CLINICAL HISTORY: ABN CHST TECHNIQUE: Frontal view of the chest. COMPARISON: Chest radiograph March 06, 2020. FINDINGS/IMPRESSION: Improving basilar infiltrates. Follow chest radiograph recommended. The upper lung finley are clear. No pneumothorax. Stable cardiomegaly. Stable left upper extremity PICC line.
--- NOTE | 2020-03-12 11:03 | NUR ---
NURSE NOTES: Potassium 5.3 and CK [address] Mata and Dr Cooper. Dr Cooper stated he already knows, no new orders. Patient's urine pouch detached. RN placed a new urine pouch. Patient clean and dry.
[2020-03-12 12:00] VITALS: BP 152/101
--- NOTE | 2020-03-12 12:41 | Cardiology Progress Note ---
Assessment/Plan Assessment/Plan Acute covid 19 pneumonia chest pain possible M/S infiltrate bilat bacteremia drug free for 28 years his of ivda hypernatremia mild abn lfts on bipap echo normal wall motion before hypoxemia unlikely cardiac related ct of the chest done most recently showed extensive infiltrate felt to be due to worsening covid 19 infection off anticoagulation continue supportive care remain on bipap saturating ok at rest renal fxn seem ok tele sinus not appear tachy on available recorded strips na imporved renal following cxr improved bp is high,on tts patch and iv hydralazine abn lft and cpk will recheck trop and ekg likely cpk elevation form prolong recumbent position? last ekg 03/08 non specific t wave abn will repeat echo tomorrow Subjective Subjective pt now in covid 19 isolation per rn: refused alot of care yest but agree to so today , no compl;aint of pain he just does or cannot do naything on his own and when he cough he desaturates Objective Last 24 Hour Vital Signs Date Time Temp Pulse Resp B/P (MAP) Pulse Ox O2 Delivery O2 Flow Rate FiO2 03/12/20 12:00 97.3 87 17 152/101 (118) 89 03/12/20 08:00 81 03/12/20 08:00 100 03/12/20 08:00 97.0 87 19 148/96 (113) 87 03/12/20 08:00 Bi-pap 100.0 Bi-pap 03/12/20 07:04 99 33 89 100 03/12/20 04:00 100 03/12/20 04:00 97.8 86 22 140/88 (105) 92 03/12/20 04:00 78 03/12/20 04:00 Bi-pap 100.0 Bi-pap 03/12/20 02:31 89 31 90 100 03/12/20 00:00 100 03/12/20 00:00 Bi-pap 100.0 Bi-pap 03/12/20 00:00 82 03/12/20 00:00 97.5 86 21 145/95 (112) 96 03/11/20 23:46 86 37 91 100 03/11/20 20:00 98.7 78 22 147/89 (108) 95 03/11/20 20:00 100 03/11/20 20:00 Bi-pap 100.0 Bi-pap 03/11/20 20:00 83 03/11/20 19:47 87 19 95 100 03/11/20 16:00 101 03/11/20 16:00 Bi-pap 100.0 Bi-pap 03/11/20 16:00 100 03/11/20 16:00 96.7 102 20 140/97 (111) 91 03/11/20 15:20 93 24 92 100 Intake and Output 03/11/20 03/12/20 19:00 07:00 Intake Total 1190 ml 935 ml Output Total 1600 ml 300 ml Balance -410 ml 635 ml IV Total 1190 ml 935 ml Output Urine Total 1600 ml 300 ml # Voids 2 # Bowel Movements 1 Laboratory Tests Test 03/11/20 12:45 03/11/20 23:13 03/12/20 05:00 03/12/20 05:05 Sodium Level 138 MMOL/L (136-145) 136 MMOL/L (136-145) Potassium Level 5.0 MMOL/L (3.5-5.1) 5.3 MMOL/L (3.5-5.1) H Chloride Level 105 MMOL/L (98-107) 102 MMOL/L (98-107) Carbon Dioxide Level 24 MMOL/L (21-32) 29 MMOL/L (21-32) Anion Gap 9 mmol/L (5-15) 5 mmol/L (5-15) Blood Urea Nitrogen 29 mg/dL (7-18) H 28 mg/dL (7-18) H Creatinine 1.0 MG/DL (0.55-1.30) 1.0 MG/DL (0.55-1.30) Estimat Glomerular Filtration Rate > 60 mL/min (>60) > 60 mL/min (>60) Glucose Level 323 MG/DL (74-106) #H 260 MG/DL (74-106) H Calcium Level 8.8 MG/DL (8.5-10.1) 9.1 MG/DL (8.5-10.1) Total Bilirubin 0.9 MG/DL (0.2-1.0) 0.7 MG/DL (0.2-1.0) Aspartate Amino Transf (AST/SGOT) 122 U/L (15-37) H 76 U/L (15-37) H Alanine Aminotransferase (ALT/SGPT) 137 U/L (12-78) H 144 U/L (12-78) H Alkaline Phosphatase 128 U/L (46-116) H 132 U/L (46-116) H Total Protein 6.5 G/DL (6.4-8.2) 6.5 G/DL (6.4-8.2) Albumin 2.3 G/DL (3.4-5.0) L 2.3 G/DL (3.4-5.0) L Globulin 4.2 g/dL 4.2 g/dL Albumin/Globulin Ratio 0.5 (1.0-2.7) L 0.5 (1.0-2.7) L POC Whole Blood Glucose 260 MG/DL (74-106) H 278 MG/DL (74-106) H White Blood Count 16.9 K/UL (4.8-10.8) H Red Blood Count 5.33 M/UL (4.70-6.10) Hemoglobin 15.3 G/DL (14.2-18.0) Hematocrit 47.8 % (42.0-52.0) Mean Corpuscular Volume 90 FL (80-99) # Mean Corpuscular Hemoglobin 28.6 PG (27.0-31.0) Mean Corpuscular Hemoglobin Concent 31.9 G/DL (32.0-36.0) L Red Cell Distribution Width 13.8 % (11.6-14.8) Platelet Count 169 K/UL (150-450) Mean Platelet Volume 9.5 FL (6.5-10.1) Neutrophils (%) (Auto) % (45.0-75.0) Lymphocytes (%) (Auto) % (20.0-45.0) Monocytes (%) (Auto) % (1.0-10.0) Eosinophils (%) (Auto) % (0.0-3.0) Basophils (%) (Auto) % (0.0-2.0) Differential Total Cells Counted 100 Neutrophils % (Manual) 93 % (45-75) H Lymphocytes % (Manual) 2 % (20-45) L Monocytes % (Manual) 5 % (1-10) Eosinophils % (Manual) 0 % (0-3) Basophils % (Manual) 0 % (0-2) Band Neutrophils 0 % (0-8) Platelet Estimate Adequate Platelet Morphology Normal Red Blood Cell Morphology Normal Anisocytosis 1+ Uric Acid 1.5 MG/DL (2.6-7.2) L Phosphorus Level 3.3 MG/DL (2.5-4.9) Magnesium Level 2.0 MG/DL (1.8-2.4) Total Creatine Kinase 1207 U/L (26-308) H Troponin I Pending C-Reactive Protein, Quantitative Pending Pro-B-Type Natriuretic Peptide Pending Triglycerides Level 303 MG/DL (30-150) H Cholesterol Level 184 MG/DL (< 200) LDL Cholesterol 109 mg/dL (<100) H HDL Cholesterol 29 MG/DL (40-60) L Cholesterol/HDL Ratio 6.3 (3.3-4.4) H Test 03/12/20 05:09 POC Whole Blood Glucose 299 MG/DL (74-106) H Objective pt in covid 19 isoaltion with acute infection per ID Respiratory/Chest: no accessory muscle use, crackles/rales, rhonchi - bilaterally Cardiovascular: normal rate, regular rhythm, no gallop/murmur, no JVD Abdomen: normal bowel sounds, soft, non tender, no organomegaly, non distended Genitourinary: other - no joseph Extremities: no cyanosi Manan Awan MD Mar 12, 2020 12:41
--- NOTE | 2020-03-12 14:37 | NUR ---
NURSE NOTES: EKG done, seen by Dr Awan. Trop 0.075, Dr Awan aware.
--- NOTE | 2020-03-12 15:19 | NUR ---
NURSE NOTES: Patient unable to cough up sputum sample.
--- NOTE | 2020-03-12 15:45 | Nephrology Progress Note ---
Assessment/Plan Problem List: (1) Dehydration (2) Electrolyte imbalance (3) COVID-19 virus infection (4) Pneumonia (5) DMII (diabetes mellitus, type 2) (6) Protein malnutrition Assessment Azotemia, hypernatremia Hypoalbuminemia Staff Otilia bacteremia COVID-19 isolation, pneumonia, bilateral infiltrate Hypertension Diabetes mellitus History of smoking Plan March 12: Patient on TPN. Labs reviewed. CPK remains elevated. Abnormal electrolytes and high blood sugar discussed with pharmacist and TPN adjusted. Continue to monitor labs. Oral Protonix added. Ibuprofen discontinued. Can continue to monitor electrolytes and chemistries. Levemir for high blood sugar added. March 11: Patient on TPN. Labs as of 11:15 AM is still pending. Continue per current treatment plan. Will check labs and adjust TPN as needed. Continue per consultants. March 10: Patient on TPN. Labs reviewed. Electrolytes overall stable. CPK is elevated. Will monitor electrolyte, CPK level, lipid panel. Continue per consultants. Discussed with pharmacist. Discussed with RN. Nutritional evaluation noted. Previously: D5W 100 cc an hour Monitor electrolytes renal parameters TPN and Intralipid ordered Will follow Continue per consultants Dietary consult requested Subjective ROS Limited/Unobtainable: No Constitutional: Reports: malaise Objective Objective Last 24 Hour Vital Signs Date Time Temp Pulse Resp B/P (MAP) Pulse Ox O2 Delivery O2 Flow Rate FiO2 03/12/20 12:00 Bi-pap 100.0 Bi-pap 03/12/20 12:00 100 03/12/20 12:00 97.3 87 17 152/101 (118) 89 03/12/20 12:00 81 03/12/20 11:10 99 18 91 100 03/12/20 08:00 81 03/12/20 08:00 100 03/12/20 08:00 97.0 87 19 148/96 (113) 87 03/12/20 08:00 Bi-pap 100.0 Bi-pap 03/12/20 07:04 99 33 89 100 03/12/20 04:00 100 03/12/20 04:00 97.8 86 22 140/88 (105) 92 03/12/20 04:00 78 03/12/20 04:00 Bi-pap 100.0 Bi-pap 03/12/20 02:31 89 31 90 100 03/12/20 00:00 100 03/12/20 00:00 Bi-pap 100.0 Bi-pap 03/12/20 00:00 82 03/12/20 00:00 97.5 86 21 145/95 (112) 96 03/11/20 23:46 86 37 91 100 03/11/20 20:00 98.7 78 22 147/89 (108) 95 03/11/20 20:00 100 03/11/20 20:00 Bi-pap 100.0 Bi-pap 03/11/20 20:00 83 03/11/20 19:47 87 19 95 100 03/11/20 16:00 101 03/11/20 16:00 Bi-pap 100.0 Bi-pap 03/11/20 16:00 100 03/11/20 16:00 96.7 102 20 140/97 (111) 91 Intake and Output 03/11/20 03/12/20 19:00 07:00 Intake Total 1190 ml 935 ml Output Total 1600 ml 300 ml Balance -410 ml 635 ml IV Total 1190 ml 935 ml Output Urine Total 1600 ml 300 ml # Voids 2 # Bowel Movements 1 Laboratory Tests 03/11/20 23:13: POC Whole Blood Glucose 260H 03/12/20 05:00: White Blood Count 16.9H, Red Blood Count 5.33, Hemoglobin 15.3, Hematocrit 47.8, Mean Corpuscular Volume 90#, Mean Corpuscular Hemoglobin 28.6, Mean Corpuscular Hemoglobin Concent 31.9L, Red Cell Distribution Width 13.8, Platelet Count 169, Mean Platelet Volume 9.5, Neutrophils (%) (Auto) , Lymphocytes (%) (Auto) , Monocytes (%) (Auto) , Eosinophils (%) (Auto) , Basophils (%) (Auto) , Differential Total Cells Counted 100, Neutrophils % (Manual) 93H, Lymphocytes % (Manual) 2L, Monocytes % (Manual) 5, Eosinophils % (Manual) 0, Basophils % (Manual) 0, Band Neutrophils 0, Platelet Estimate Adequate, Platelet Morphology Normal, Red Blood Cell Morphology Normal, Anisocytosis 1+, Sodium Level 136, Potassium Level 5.3H, Chloride Level 102, Carbon Dioxide Level 29, Anion Gap 5, Blood Urea Nitrogen 28H, Creatinine 1.0, Estimat Glomerular Filtration Rate > 60, Glucose Level 260H, Uric Acid 1.5L, Calcium Level 9.1, Phosphorus Level 3.3, Magnesium Level 2.0, Total Bilirubin 0.7, Aspartate Amino Transf (AST/SGOT) 76H, Alanine Aminotransferase (ALT/SGPT) 144H, Alkaline Phosphatase 132H, Total Creatine Kinase 1207H, Troponin I 0.075H, C-Reactive Protein, Quantitative [Pending], Pro-B-Type Natriuretic Peptide 379H, Total Protein 6.5, Albumin 2.3L, Globulin 4.2, Albumin/Globulin Ratio 0.5L, Triglycerides Level 303H, Cholesterol Level 184, LDL Cholesterol 109H, HDL Cholesterol 29L, Cholesterol/HDL Ratio 6.3H 03/12/20 05:05: POC Whole Blood Glucose 278H 03/12/20 05:09: POC Whole Blood Glucose 299H 03/12/20 12:40: POC Whole Blood Glucose 254H Height (Feet): 5 Height (Inches): 10.00 Weight (Pounds): 240 General Appearance: mild distress Cardiovascular: tachycardia Respiratory/Chest: decreased breath sounds Abdomen: distended Rubin Cooper MD Mar 12, 2020 15:45
[2020-03-12 16:00] VITALS: BP 149/106
--- NOTE | 2020-03-12 19:33 | NUR ---
NURSE HAND-OFF REPORT: Important Events on Shift: Patient Status: alert Diet: TPN x 85 ml/hr Pending Orders: still for sputum collection, patient stated he is unable to cough up sputum Pending Results/Labs: Pending MD notification: Latest Vital Signs: Temperature 97.5 , Pulse 88 , B/P 149 /106 , Respiratory Rate 26 , O2 SAT 91 , Room Air, O2 Flow Rate 100.0 . Vital Sign Comment: EKG Rhythm: Sinus Rhythm Rhythm change?: N MD Notified?: Courtney Paige MD Response: Message left await call Latest Hassan Fall Score: 45 Fall Risk: High Risk Safety Measures: Call light Within Reach, Bed Alarm Zone 1, Side Rails Side Rails x2, Bed position Low and Locked. Fall Precautions: Yellow Socks Patient Fall Education Report given to Hillary MATHEW.
--- NOTE | 2020-03-12 19:35 | NUR ---
NURSE NOTES: Important Events on Shift: Received report from Trinh Blackwood RN. Pt in stable condition, AxO x 4, BIPAP in place, denies pain. Will continue plan of care and close monitoring. Patient Status: full code Diet: TPN @ 85ml/hr Pending Orders: none Pending Results/Labs: AM labs Pending MD notification: none Latest Vital Signs: Temperature 97.9 , Pulse 88 , B/P 146 /91 , Respiratory Rate 26 , O2 SAT 92 , Room Air, O2 Flow Rate 100.0 . Vital Sign Comment: YES EKG Rhythm: Sinus Rhythm Rhythm change?: N MD Notified?: Courtney Paige MD Response: Message left await call Latest Hassan Fall Score: 45 Fall Risk: High Risk Safety Measures: Call light Within Reach, Bed Alarm Zone 1, Side Rails Side Rails x2, Bed position Low and Locked. Fall Precautions: YES Yellow Socks YES Yellow Gown YES Door Sign YES Patient Fall Education
[2020-03-12 20:00] VITALS: BP 129/96
[2020-03-12] MEDS ORDERED: FAT EMULSION 20% IV SCH (20:00)
[2020-03-12] MEDS ORDERED: TPN IV SCH (20:00)
[2020-03-12] MEDS: Miralax 17gm pkt ORAL SCH (20:29)
[2020-03-12] MEDS: Levemir Flexpen SUBQ SCH (21:00)
[2020-03-12] MEDS: Pantoprazole Inj IVP SCH (22:20)
[2020-03-12] MEDS: Dyna-Hex 2% Top Sol 2oz TOPIC SCH (22:20)
[2020-03-13] VITALS: BP 150/88
--- NOTE | 2020-03-13 | NUR ---
NURSE NOTES: Pt is currently refusing ADLs, including bed bath and linen change. Will reattempt ADLs later in shift. Pt in stable condition, AxO x 4, denies pain. Will continue to monitor closely.
[2020-03-13 04:00] VITALS: BP 146/91
[2020-03-13] MEDS: NovoLOG Insulin Flexpen SUBQ SCH ×5 (05:50→23:36)
[2020-03-13] MEDS: Solu-MEDROL 40mg Inj IVP SCH ×3 (05:51→22:28)
--- NOTE | 2020-03-13 06:34 | NUR ---
NURSE NOTES: Pt is currently refusing ADLs, including bed bath and linen change. Will endorse refusal at AM shift. Pt in stable condition, AxO x 4, denies pain. Will continue to monitor closely.
--- NOTE | 2020-03-13 06:35 | NUR ---
NURSE HAND-OFF REPORT: Important Events on Shift: [facility] did not have Bactrim available for 0000 dose. Notified [facility], who moved dose to 1000 and will inform AM facility pharmacy staff. Pt refused all ADLs, including bed bath and linen change. Patient Status: full code Diet: TPN @ 85ML/HR Pending Orders: NONE Pending Results/Labs: AM LABS Pending notification: Changed dosing time of Bactrim Latest Vital Signs: Temperature 97.9, Pulse 88, B/P 146 /91 , Respiratory Rate 26 , O2 SAT 92 , Room Air, O2 Flow Rate 100.0 . Vital Sign Comment: stable throughout shift EKG Rhythm: Sinus Rhythm Rhythm change?: N MD Notified?: Courtney Paige MD Response: Message left await call Latest Hassan Fall Score: 45 Fall Risk: High Risk Safety Measures: Call light Within Reach, Bed Alarm Zone 1, Side Rails Side Rails x2, Bed position Low and Locked. Fall Precautions: YES Yellow Socks Yellow Gown Door Sign Patient Fall Education
[2020-03-13 06:45] LABS: HEMATOCRIT 47.5 % (42.0-52.0); HEMOGLOBIN 15.1 G/DL (14.2-18.0); MEAN CORPUSCULAR VOLUME 90 FL (80-99); PLATELET COUNT 166 K/UL (150-450); RED BLOOD COUNT 5.26 M/UL (4.70-6.10); RED CELL DISTRIBUTION WIDTH 13.8 % (11.6-14.8); WHITE BLOOD COUNT 16.9 K/UL (4.8-10.8)
--- NOTE | 2020-03-13 07:02 | NUR ---
HAND-OFF: Report to be given to Franchesca Hinds RN
--- NOTE | 2020-03-13 07:05 | NUR ---
RESPIRATORY NOTE: Pt received on Bipap with current settings. 20/10 RR:14, 100%. Alarms are on and audible. Foam tape in place. No facial wounds found. No SOB noted at this time. Will continue to monitor.
--- NOTE | 2020-03-13 07:23 | NUR ---
NURSE NOTES: Pt received from Yamilex MATHEW. Pt in bed working with RT, Bipap on saturation at 95%, no pain or distress noted. Bed low and locked, call light within reach.
[2020-03-13 07:33] LABS: ALANINE AMINOTRANSFERASE 160 U/L (12-78); ALBUMIN 2.4 G/DL (3.4-5.0); ALBUMIN/GLOBULIN RATIO 0.6 (1.0-2.7); ALKALINE PHOSPHATASE 142 U/L (46-116); ANION GAP 4 mmol/L (5-15); ASPARTATE AMINO TRANSFERASE 50 U/L (15-37); BILIRUBIN,TOTAL 0.7 MG/DL (0.2-1.0); BLOOD UREA NITROGEN 29 mg/dL (7-18); CALCIUM 9.1 MG/DL (8.5-10.1); CARBON DIOXIDE 30 MMOL/L (21-32); CHLORIDE 101 MMOL/L (98-107); PHOSPHORUS 3.9 MG/DL (2.5-4.9); POTASSIUM 4.9 MMOL/L (3.5-5.1); SODIUM 135 MMOL/L (136-145)
[2020-03-13 07:36] LABS: GAMMA GLUTAMYL TRANSPEPTIDASE 142 U/L (5-85); LACTATE DEHYDROGENASE 327 U/L (81-234)
[2020-03-13 08:00] VITALS: BP 142/92
[2020-03-13] MEDS ORDERED: Bactrim 20ml in D5W 550ml IV SCH ×2 (10:00→12:00)
--- NOTE | 2020-03-13 10:45 | Cardiology Report ---
APPROVED REPORT EKG Measurement Heart [id number] <Conclusion> Normal sinus rhythm Normal ECG
--- NOTE | 2020-03-13 10:56 | Pulmonology Progress Note ---
Subjective ROS Limited/Unobtainable: No Interval Events: tolerating BiPAP but desaturates when off BiPAP Constitutional: Reports: fatigue HEENT: Repors: no symptoms Respiratory: Reports: dry cough, shortness of breath Cardiovascular: Reports: no symptoms Gastrointestinal/Abdominal: Denies: nausea, vomiting, diarrhea Psychiatric: Denies: depression Skin: Denies: rash Musculoskeletal: Denies: pain Allergies: Coded Allergies: No Known Allergies (Unverified , 02/05/20) Objective Last 24 Hour Vital Signs Date Time Temp Pulse Resp B/P (MAP) Pulse Ox O2 Delivery O2 Flow Rate FiO2 03/13/20 08:00 Bi-pap 100.0 Bi-pap 03/13/20 08:00 84 03/13/20 08:00 100 03/13/20 08:00 97.7 87 26 142/92 (109) 93 03/13/20 04:00 100 03/13/20 04:00 97.9 88 26 146/91 (109) 92 03/13/20 04:00 83 03/13/20 04:00 Bi-pap 100.0 Bi-pap 03/13/20 03:30 94 26 92 100 03/13/20 02:00 100 03/13/20 00:00 Bi-pap 100.0 Bi-pap 03/13/20 00:00 100 03/13/20 00:00 89 03/13/20 00:00 97.5 98 26 150/88 (108) 92 03/12/20 23:30 93 19 94 100 03/12/20 20:00 100 03/12/20 20:00 97.5 109 26 129/96 (107) 91 03/12/20 20:00 94 03/12/20 20:00 Bi-pap 100.0 Bi-pap 03/12/20 19:30 103 27 92 100 03/12/20 16:54 149/106 03/12/20 16:00 97.5 90 26 149/106 (120) 91 03/12/20 16:00 88 03/12/20 16:00 Bi-pap 100.0 Bi-pap 03/12/20 16:00 100 03/12/20 15:19 84 18 91 100 03/12/20 12:00 Bi-pap 100.0 Bi-pap 03/12/20 12:00 100 03/12/20 12:00 97.3 87 17 152/101 (118) 89 03/12/20 12:00 81 03/12/20 11:10 99 18 91 100 Intake and Output 03/12/20 03/13/20 19:00 07:00 Intake Total 1590 ml 0 ml Output Total 500 ml 400 ml Balance 1090 ml -400 ml Intake Oral 0 ml 0 ml IV Total 1590 ml Output Urine Total 500 ml 400 ml General Appearance: WD/WN, no acute distress HEENT: normocephalic, atraumatic Respiratory: chest wall non-tender Cardiovascular: normal rate, regular rhythm Abdomen: normal bowel sounds, soft, non tender, other - obese Laboratory Tests 03/12/20 12:40: POC Whole Blood Glucose 254H 03/12/20 17:52: POC Whole Blood Glucose 335H 03/12/20 22:29: POC Whole Blood Glucose 301H 03/13/20 00:18: POC Whole Blood Glucose 320H 03/13/20 05:00: White Blood Count 16.9H, Red Blood Count 5.26, Hemoglobin 15.1, Hematocrit 47.5, Mean Corpuscular Volume 90, Mean Corpuscular Hemoglobin 28.7, Mean Corpuscular Hemoglobin Concent 31.7L, Red Cell Distribution Width 13.8, Platelet Count 166, Mean Platelet Volume 9.2, Neutrophils (%) (Auto) , Lymphocytes (%) (Auto) , Monocytes (%) (Auto) , Eosinophils (%) (Auto) , Basophils (%) (Auto) , Neutrophils % (Manual) [Pending], Lymphocytes % (Manual) [Pending], Platelet Estimate [Pending], Platelet Morphology [Pending], Sodium Level 135L, Potassium Level 4.9, Chloride Level 101, Carbon Dioxide Level 30, Anion Gap 4L, Blood Urea Nitrogen 29H, Creatinine 1.0, Estimat Glomerular Filtration Rate > 60, Glucose Level 275H, Calcium Level 9.1, Phosphorus Level 3.9, Magnesium Level 2.0, Total Bilirubin 0.7, Gamma Glutamyl Transpeptidase 142H, Aspartate Amino Transf (AST/SGOT) 50H, Alanine Aminotransferase (ALT/SGPT) 160H, Alkaline Phosphatase 142H, Ammonia < 10L, Lactate Dehydrogenase 327H, Total Protein 6.6, Albumin 2.4L , Globulin 4.2, Albumin/Globulin Ratio 0.6L 1/11/21 05:19: POC Whole Blood Glucose 300H Current Medications Medications (Trade) Dose Ordered Sig/Dennis Route PRN Reason Start Time Stop Time Status Last Admin Dose Admin Acetaminophen (Tylenol) 650 mg Q4H PRN ORAL Mild Pain (Pain Scale 1-3) 03/09/20 12:00 04/08/20 11:59 Bisacodyl (Dulcolax) 10 mg HSPRN PRN RECTAL Constipation 02/05/20 13:15 05/05/20 13:14 Chlorhexidine Gluconate (Marlen-Hex 2%) 1 applic DAILY@2000 TOPIC 02/14/20 20:00 05/14/20 19:59 03/12/20 22:20 Clonidine HCl (Catapres TTS-1) 1 patch QWEEK TDERMAL 03/09/20 21:00 06/07/20 20:59 03/09/20 21:00 Dextrose 1,000 ml @ 0 mls/hr Q24H PRN IV PN interrupted or unavailable 03/09/20 20:00 04/08/20 19:59 Dextrose (Dextrose 50%) 25 ml Q30M PRN IV Hypoglycemia 03/10/20 00:00 06/08/20 00:00 Dextrose (Dextrose 50%) 50 ml Q30M PRN IV Hypoglycemia 03/10/20 00:00 06/08/20 00:00 Fat Emulsion Intravenous 216 ml/Amino Acids/ Electrolytes/ Dextrose 2,016 ml @ 84 mls/hr Q24H IV 03/12/20 20:00 04/11/20 19:59 03/12/20 21:13 Hydralazine HCl (Apresoline) 10 mg Q6H PRN IV For High Blood Pressure 03/09/20 17:00 06/07/20 16:59 03/12/20 16:54 Insulin Aspart (NovoLOG) Q6HR SUBQ 03/10/20 00:00 06/08/20 00:00 03/13/20 05:50 Insulin Detemir (Levemir) 10 units Q12HR SUBQ 03/12/20 21:00 06/10/20 20:59 03/12/20 21:00 Lactulose (Cephulac) 20 gm THREE TIMES A DAY ORAL 03/08/20 13:00 04/07/20 12:59 03/12/20 09:00 Methylprednisolone Sodium Succinate (Solu-MEDROL) 40 mg EVERY 8 HOURS IVP 03/07/20 18:58 06/05/20 18:57 03/13/20 05:51 Pantoprazole (Protonix) 40 mg EVERY 12 HOURS IVP 03/12/20 21:00 04/11/20 20:59 03/12/20 22:20 Polyethylene Glycol (Miralax) 17 gm BEDTIME ORAL 03/08/20 21:00 04/07/20 20:59 03/10/20 20:33 Promethazine HCl/ Codeine (Phenergan with Codeine) 5 ml Q4H PRN ORAL For Cough 02/22/20 12:15 03/23/20 12:14 03/12/20 09:00 Trimethoprim/ Sulfamethoxazole 20 ml/Dextrose 570 ml @ 380 mls/hr Q8H IV 03/13/20 10:00 03/20/20 09:59 Assessment/Plan Assessment/Plan 1.COVID-19 pneumonia. - last COVID-19 test positive after two negative tests - CTA 02/05/2020 ground-glass and consolidating infiltrates in the dependent portions of both lower lobes and to lesser degree the upper lobes consistent with bilateral pneumonia. No evidence of pulmonary embolus. - CXR 02/17/2020 worsening bilateral infiltrates; Repeat CXR shows basilar linear densities - CT chest 02/18 shows Increased extensive patchy ground-glass opacities and densities throughout the lungs, suggestive of Covid 19 infection. - currently on BiPAP. Saturations 90%. - Mycoplasma pneumoniae IgG 273; M. pneumoniae IgM titer within normal limits - D-dimer 0.90; on full dose Lovenox -Discontinued Decadron, now on Solumedrol - s/p remdesivir - is now net I/O negative -We will continue TPN He has had a progressive increase in LDH,-started on Bactrim due to concern about pneumocystis. - Looking unchanged today. 2. Initial negative rapid COVID-19 gene assay.- however repeat COVID-19 test positive 3. Smoker. 4. DVT ppx - on lovenox 5. Hypertension - on hydralazine, and norvasc - On cardiac diet 6. Blood culture positive for gram positive cocci staph aureus - on Abx - CT abd/pelvis showed no abscess per ID - TTE/ FERNY held off due to COVID-19 status - PICC line in place (Patient was seen earlier today. Signature timestamp does not reflect patient encounter time) John Mata MD . John Mata MD Mar 13, 2020 10:56
--- NOTE | 2020-03-13 11:11 | NUR ---
NURSE NOTES: Re 10am bactrim. The bag in the pt cassette had a beyond use date time of 03/13 8:3-0. Called pharmacy to replace.
[2020-03-13] MEDS: Enoxaparin 40mg Inj SUBQ SCH (11:15)
[2020-03-13] MEDS: Lactulose 20gm/30ml UDC ORAL SCH ×3 (11:15→18:00)
[2020-03-13] MEDS: Levemir Flexpen SUBQ SCH ×2 (11:30→20:43)
--- NOTE | 2020-03-13 11:43 | Nephrology Progress Note ---
Assessment/Plan Problem List: (1) Dehydration (2) Electrolyte imbalance (3) COVID-19 virus infection (4) Pneumonia (5) DMII (diabetes mellitus, type 2) (6) Protein malnutrition Assessment Azotemia, hypernatremia Hypoalbuminemia Staff Otilia bacteremia COVID-19 isolation, pneumonia, bilateral infiltrate Hypertension Diabetes mellitus History of smoking Plan March 13: Patient remains on TPN. Discussed with pharmacist. TPN's sodium content adjusted. Labs reviewed. Continue to monitor electrolytes. Blood pressure remains stable. Continue per consultants. March 12: Patient on TPN. Labs reviewed. CPK remains elevated. Abnormal electrolytes and high blood sugar discussed with pharmacist and TPN adjusted. Continue to monitor labs. Oral Protonix added. Ibuprofen discontinued. Can continue to monitor electrolytes and chemistries. Levemir for high blood sugar added. March 11: Patient on TPN. Labs as of 11:15 AM is still pending. Continue per current treatment plan. Will check labs and adjust TPN as needed. Continue per consultants. March 10: Patient on TPN. Labs reviewed. Electrolytes overall stable. CPK is elevated. Will monitor electrolyte, CPK level, lipid panel. Continue per consultants. Discussed with pharmacist. Discussed with RN. Nutritional evaluation noted. Previously: D5W 100 cc an hour Monitor electrolytes renal parameters TPN and Intralipid ordered Will follow Continue per consultants Dietary consult requested Subjective ROS Limited/Unobtainable: No Constitutional: Reports: malaise, weakness Objective Objective Last 24 Hour Vital Signs Date Time Temp Pulse Resp B/P (MAP) Pulse Ox O2 Delivery O2 Flow Rate FiO2 03/13/20 08:00 Bi-pap 100.0 Bi-pap 03/13/20 08:00 84 03/13/20 08:00 100 03/13/20 08:00 97.7 87 26 142/92 (109) 93 03/13/20 04:00 100 03/13/20 04:00 97.9 88 26 146/91 (109) 92 03/13/20 04:00 83 03/13/20 04:00 Bi-pap 100.0 Bi-pap 03/13/20 03:30 94 26 92 100 03/13/20 02:00 100 03/13/20 00:00 Bi-pap 100.0 Bi-pap 03/13/20 00:00 100 03/13/20 00:00 89 1/11/21 00:00 97.5 98 26 150/88 (108) 92 03/12/20 23:30 93 19 94 100 03/12/20 20:00 100 03/12/20 20:00 97.5 109 26 129/96 (107) 91 03/12/20 20:00 94 03/12/20 20:00 Bi-pap 100.0 Bi-pap 03/12/20 19:30 103 27 92 100 03/12/20 16:54 149/106 03/12/20 16:00 97.5 90 26 149/106 (120) 91 03/12/20 16:00 88 03/12/20 16:00 Bi-pap 100.0 Bi-pap 03/12/20 16:00 100 03/12/20 15:19 84 18 91 100 03/12/20 12:00 Bi-pap 100.0 Bi-pap 03/12/20 12:00 100 03/12/20 12:00 97.3 87 17 152/101 (118) 89 03/12/20 12:00 81 Intake and Output 03/12/20 03/13/20 19:00 07:00 Intake Total 1590 ml 0 ml Output Total 500 ml 400 ml Balance 1090 ml -400 ml Intake Oral 0 ml 0 ml IV Total 1590 ml Output Urine Total 500 ml 400 ml Current Medications Medications (Trade) Dose Ordered Sig/Dennis Route PRN Reason Start Time Stop Time Status Last Admin Dose Admin Acetaminophen (Tylenol) 650 mg Q4H PRN ORAL Mild Pain (Pain Scale 1-3) 03/09/20 12:00 04/08/20 11:59 Bisacodyl (Dulcolax) 10 mg HSPRN PRN RECTAL Constipation 02/05/20 13:15 05/05/20 13:14 Chlorhexidine Gluconate (Marlen-Hex 2%) 1 applic DAILY@2000 TOPIC 02/14/20 20:00 05/14/20 19:59 03/12/20 22:20 Clonidine HCl (Catapres TTS-1) 1 patch QWEEK TDERMAL 03/09/20 21:00 06/07/20 20:59 03/09/20 21:00 Dextrose 1,000 ml @ 0 mls/hr Q24H PRN IV PN interrupted or unavailable 03/09/20 20:00 26/21 19:59 Dextrose (Dextrose 50%) 25 ml Q30M PRN IV Hypoglycemia 03/10/20 00:00 06/08/20 00:00 Dextrose (Dextrose 50%) 50 ml Q30M PRN IV Hypoglycemia 03/10/20 00:00 06/08/20 00:00 Enoxaparin Sodium (Lovenox) 40 mg DAILY SUBQ 03/13/20 12:00 06/11/20 11:59 03/13/20 11:15 Fat Emulsion Intravenous 216 ml/Amino Acids/ Electrolytes/ Dextrose 2,016 ml @ 84 mls/hr Q24H IV 03/12/20 20:00 04/11/20 19:59 03/12/20 21:13 Fat Emulsion Intravenous 216 ml/Amino Acids/ Electrolytes/ Dextrose 2,016 ml @ 84 mls/hr Q24H IV 03/13/20 20:00 04/12/20 19:59 Hydralazine HCl (Apresoline) 10 mg Q6H PRN IV For High Blood Pressure 03/09/20 17:00 06/07/20 16:59 03/12/20 16:54 Insulin Aspart (NovoLOG) Q6HR SUBQ 03/10/20 00:00 06/08/20 00:00 03/13/20 11:33 Insulin Detemir (Levemir) 10 units Q12HR SUBQ 03/12/20 21:00 06/10/20 20:59 03/13/20 11:30 Lactulose (Cephulac) 20 gm THREE TIMES A DAY ORAL 03/08/20 13:00 04/07/20 12:59 03/13/20 11:15 Methylprednisolone Sodium Succinate (Solu-MEDROL) 40 mg EVERY 8 HOURS IVP 03/07/20 18:58 06/05/20 18:57 03/13/20 05:51 Pantoprazole (Protonix) 40 mg EVERY 12 HOURS IVP 03/12/20 21:00 04/11/20 20:59 03/12/20 22:20 Polyethylene Glycol (Miralax) 17 gm BEDTIME ORAL 03/08/20 21:00 04/07/20 20:59 03/10/20 20:33 Promethazine HCl/ Codeine (Phenergan with Codeine) 5 ml Q4H PRN ORAL For Cough 12/22/20 12:15 03/23/20 12:14 03/12/20 09:00 Trimethoprim/ Sulfamethoxazole 20 ml/Dextrose 570 ml @ 380 mls/hr [id number] BACTRIM IV 03/13/20 12:00 03/20/20 09:59 Laboratory Tests 03/12/20 12:40: POC Whole Blood Glucose 254H 03/12/20 17:52: POC Whole Blood Glucose 335H 03/12/20 22:29: POC Whole Blood Glucose 301H 03/13/20 00:18: POC Whole Blood Glucose 320H 03/13/20 05:00: White Blood Count 16.9H, Red Blood Count 5.26, Hemoglobin 15.1, Hematocrit 47.5, Mean Corpuscular Volume 90, Mean Corpuscular Hemoglobin 28.7, Mean Corpuscular Hemoglobin Concent 31.7L, Red Cell Distribution Width 13.8, Platelet Count 166, Mean Platelet Volume 9.2, Neutrophils (%) (Auto) , Lymphocytes (%) (Auto) , Monocytes (%) (Auto) , Eosinophils (%) (Auto) , Basophils (%) (Auto) , Differential Total Cells Counted 100, Neutrophils % (Manual) 89H, Lymphocytes % (Manual) 8L, Monocytes % (Manual) 2, Eosinophils % (Manual) 0, Basophils % (Manual) 0, Band Neutrophils 1, Platelet Estimate Adequate, Platelet Morphology Normal, Red Blood Cell Morphology Normal, Sodium Level 135L, Potassium Level 4.9, Chloride Level 101, Carbon Dioxide Level 30, Anion Gap 4L, Blood Urea Nitrogen 29H, Creatinine 1.0, Estimat Glomerular Filtration Rate > 60, Glucose Level 275H, Calcium Level 9.1, Phosphorus Level 3.9, Magnesium Level 2.0, Total Bilirubin 0.7, Gamma Glutamyl Transpeptidase 142H, Aspartate Amino Transf (AST/SGOT) 50H, Alanine Aminotransferase (ALT/SGPT) 160H, Alkaline Phosphatase 142H, Ammonia < 10L, Lactate Dehydrogenase 327H, Total Protein 6.6, Albumin 2.4L , Globulin 4.2, Albumin/Globulin Ratio 0.6L 03/13/20 05:19: POC Whole Blood Glucose 300H Height (Feet): 5 Height (Inches): 10.00 Weight (Pounds): 240 General Appearance: mild distress Cardiovascular: tachycardia Respiratory/Chest: decreased breath sounds Abdomen: distended Rubin Cooper MD Mar 13, 2020 11:43
[2020-03-13 12:00] VITALS: BP 152/98
[2020-03-13] MEDS: Pantoprazole Inj IVP SCH ×2 (13:26→20:23)
--- NOTE | 2020-03-13 13:26 | NUR ---
NURSE NOTES: re late protonix, med out of stock in all pyxisis until now. re non admin lactulose, pt wants oral care, afraid of keeping bipap off for too long.
--- NOTE | 2020-03-13 13:53 | NUR ---
[employer] SI: Respiratory Failure, COVID PNA T 96.1, HR 83, RR 26, BP 152/98 BIPAP 20/10, FiO2 100% O2 sat 92% WBC 16.9, BUN 29, Creatinine 1.0 NA+ 135, Alk Phos 142 IS: Bactrim IV q 8 hrs Cefazolin IV q 8 hrs Lovenox SQ q 12 h solu-medrol IVP q h hrs TPN 85ml/hr q 24 h Step Down Status
--- NOTE | 2020-03-13 14:14 | General Progress Note ---
Subjective ROS Limited/Unobtainable: No Allergies: Coded Allergies: No Known Allergies (Unverified , 02/05/20) Objective Last 24 Hour Vital Signs Date Time Temp Pulse Resp B/P (MAP) Pulse Ox O2 Delivery O2 Flow Rate FiO2 03/13/20 12:00 96.1 83 26 152/98 (116) 92 03/13/20 12:00 100 03/13/20 12:00 88 03/13/20 12:00 Bi-pap 100.0 Bi-pap 03/13/20 08:00 Bi-pap 100.0 Bi-pap 03/13/20 08:00 84 03/13/20 08:00 100 03/13/20 08:00 97.7 87 26 142/92 (109) 93 03/13/20 04:00 100 03/13/20 04:00 97.9 88 26 146/91 (109) 92 03/13/20 04:00 83 03/13/20 04:00 Bi-pap 100.0 Bi-pap 03/13/20 03:30 94 26 92 100 03/13/20 02:00 100 03/13/20 00:00 Bi-pap 100.0 Bi-pap 03/13/20 00:00 100 03/13/20 00:00 89 03/13/20 00:00 97.5 98 26 150/88 (108) 92 03/12/20 23:30 93 19 94 100 03/12/20 20:00 100 03/12/20 20:00 97.5 109 26 129/96 (107) 91 03/12/20 20:00 94 03/12/20 20:00 Bi-pap 100.0 Bi-pap 03/12/20 19:30 103 27 92 100 03/12/20 16:54 149/106 03/12/20 16:00 97.5 90 26 149/106 (120) 91 03/12/20 16:00 88 03/12/20 16:00 Bi-pap 100.0 Bi-pap 03/12/20 16:00 100 03/12/20 15:19 84 18 91 100 Intake and Output 03/12/20 03/13/20 19:00 07:00 Intake Total 1590 ml 0 ml Output Total 500 ml 400 ml Balance 1090 ml -400 ml Intake Oral 0 ml 0 ml IV Total 1590 ml Output Urine Total 500 ml 400 ml Laboratory Tests 03/12/20 17:52: POC Whole Blood Glucose 335H 03/12/20 22:29: POC Whole Blood Glucose 301H 03/13/20 00:18: POC Whole Blood Glucose 320H 03/13/20 05:00: White Blood Count 16.9H, Red Blood Count 5.26, Hemoglobin 15.1, Hematocrit 47.5, Mean Corpuscular Volume 90, Mean Corpuscular Hemoglobin 28.7, Mean Corpuscular Hemoglobin Concent 31.7L, Red Cell Distribution Width 13.8, Platelet Count 166, Mean Platelet Volume 9.2, Neutrophils (%) (Auto) , Lymphocytes (%) (Auto) , Monocytes (%) (Auto) , Eosinophils (%) (Auto) , Basophils (%) (Auto) , Differential Total Cells Counted 100, Neutrophils % (Manual) 89H, Lymphocytes % (Manual) 8L, Monocytes % (Manual) 2, Eosinophils % (Manual) 0, Basophils % (Manual) 0, Band Neutrophils 1, Platelet Estimate Adequate, Platelet Morphology Normal, Red Blood Cell Morphology Normal, Sodium Level 135L, Potassium Level 4.9, Chloride Level 101, Carbon Dioxide Level 30, Anion Gap 4L, Blood Urea Nitrogen 29H, Creatinine 1.0, Estimat Glomerular Filtration Rate > 60, Glucose Level 275H, Calcium Level 9.1, Phosphorus Level 3.9, Magnesium Level 2.0, Total Bilirubin 0.7, Gamma Glutamyl Transpeptidase 142H, Aspartate Amino Transf (AST/SGOT) 50H, Alanine Aminotransferase (ALT/SGPT) 160H, Alkaline Phosphatase 142H, Ammonia < 10L, Lactate Dehydrogenase 327H, Total Protein 6.6, Albumin 2.4L , Globulin 4.2, Albumin/Globulin Ratio 0.6L 03/13/20 05:19: POC Whole Blood Glucose 300H Height (Feet): 5 Height (Inches): 10.00 Weight (Pounds): 240 General Appearance: no apparent distress EENT: normal ENT inspection Neck: supple Cardiovascular: tachycardia Respiratory/Chest: decreased breath sounds Abdomen: normal bowel sounds, non tender, soft Extremities: non-tender Assessment/Plan Status: not improved, unchanged Assessment/Plan: covid + on BIPAP DM HTN FTT constipation not stable for PEG could not tolerate NGT placement TPN for now bowel regimen covid care rising LFTS>>> will monitor will Da Wilson MD Mar 13, 2020 14:14
[2020-03-13 16:00] VITALS: BP 148/95
--- NOTE | 2020-03-13 18:18 | Infectious Diseases Prog Note ---
Assessment/Plan Assessment/Plan ASSESSMENT AND PLAN: 1. staph aureus bacteremia/mssa, ? source, ? endocarditis, sepsis, leukocytosis, ? CAP, PJP less likely with HIV negative and steroids < 1 month covid-19 +, hypoxia, sob, chest x-ray worse, ? PE, ? HCAP/aspiration pna recurrent fevers - ? fungal, ? OI leukocytosis noted - ? new infection, ? steroids cocci serology negative, legionella negative, beta 1,3 D-glucan wnl, Il-16 - 13.7 - bactrim for empiric pneumocystis pna treatment -day # 5 - day # 32 mssa tx post neg blood cultures - will be covered by bactrim also - saturations improved, on solumedrol - monitor hypoxia, labs and chest x-ray - 03/12/20 - chest x-rayt improved - CT imaging noted - leukocytosis noted and likely secondary to steroids, cultures negative, fevers better - TPN - bacillus species blood cultures likely contaminant, f/u blood cultures negative 2. covid-19 isolation 3. Hypertension history. Blood pressure treatment primary care team. 4. Elevated blood sugars. Blood sugar treatment per primary care team. 5. No known drug allergies. 6. Social history is positive for smoking. 7. Family history is noncontributory. 8. MAR was noted. 9. Case was discussed with RN. 10. Continue treatment per primary consultants. Subjective Constitutional: Reports: other - respiratory stable; Denies: fever HEENT: Reports: congestion Respiratory: Reports: shortness of breath Cardiovascular: Reports: chest pain - less chest discomfort with breathing Gastrointestinal/Abdominal: Denies: nausea, vomiting, diarrhea Genitourinary: Denies: dysuria, hematuria Neurologic: Denies: headache Psychiatric: Denies: depression Skin: Denies: rash Hematologic: Denies: bleeding Musculoskeletal: Denies: pain Allergies: Coded Allergies: No Known Allergies (Unverified , 02/05/20) Objective Last 24 Hour Vital Signs Date Time Temp Pulse Resp B/P (MAP) Pulse Ox O2 Delivery O2 Flow Rate FiO2 03/13/20 16:00 Bi-pap 100.0 Bi-pap 03/13/20 16:00 100 03/13/20 16:00 99 03/13/20 16:00 97.7 91 22 148/95 (112) 92 03/13/20 15:10 87 26 94 100 03/13/20 12:00 96.1 83 26 152/98 (116) 92 03/13/20 12:00 100 03/13/20 12:00 88 03/13/20 12:00 Bi-pap 100.0 Bi-pap 03/13/20 10:55 87 20 92 100 03/13/20 08:00 Bi-pap 100.0 Bi-pap 03/13/20 08:00 84 03/13/20 08:00 100 03/13/20 08:00 97.7 87 26 142/92 (109) 93 03/13/20 07:05 78 19 94 100 03/13/20 04:00 100 03/13/20 04:00 97.9 88 26 146/91 (109) 92 03/13/20 04:00 83 03/13/20 04:00 Bi-pap 100.0 Bi-pap 03/13/20 03:30 94 26 92 100 03/13/20 02:00 100 03/13/20 00:00 Bi-pap 100.0 Bi-pap 03/13/20 00:00 100 03/13/20 00:00 89 03/13/20 00:00 97.5 98 26 150/88 (108) 92 03/12/20 23:30 93 19 94 100 03/12/20 20:00 100 03/12/20 20:00 97.5 109 26 129/96 (107) 91 03/12/20 20:00 94 03/12/20 20:00 Bi-pap 100.0 Bi-pap 03/12/20 19:30 103 27 92 100 Height (Feet): 5 Height (Inches): 10.00 Weight (Pounds): 240 General Appearance: no acute distress, other - on bipap HEENT: normocephalic, atraumatic, anicteric, mucous membranes moist Respiratory/Chest: crackles/rales, rhonchi - bilaterally Cardiovascular: normal rate, regular rhythm, no gallop/murmur, no JVD Abdomen: normal bowel sounds, soft, non tender, no organomegaly, non distended Genitourinary: other Extremities: no cyanosis Skin: no rash 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 The infiltrates are typical for Covid 19. No evidence of pulmonary embolus. CT abdomen and pelvis: IMPRESSION: 1. Scattered hepatic hypodense lesions, too small to characterize on this examination without intravenous contrast. 2. Colonic diverticulosis without evidence of acute diverticulitis. 3. Scattered enlarged mesenteric lymph nodes, presumably reactive. teral pneumonia. The infiltrates are typical for Covid 19. No evidence of pulmonary embolus. Chest x-ray - 12/19/19 - Indication: Shortness of breath Technique: One view of the chest Comparison: 02/17/2020 Findings: Interim worsening of bilateral infiltrates, particularly on the right. The heart is borderline enlarged. The pleural spaces are clear. Left arm PICC is again demonstrated Impression: Worsening bilateral infiltrates over one day, likely pneumonia CT chest - 02/19/20 - IMPRESSION: Increased extensive patchy ground-glass opacities and densities throughout the lungs, suggestive of Covid 19 infection. Chest x-ray 02/23/20 - Procedure: XRAY Chest 1v As Indication: Reason For Exam: INFECT Technique: One view of the chest Comparison: 02/20/2020 Findings: Allowing for differences in exposure technique, bilateral mid and lower lung infiltrates are probably unchanged. The heart size is normal. The pleural spaces are clear. Impression: Unchanged, over 4 days, findings as above. Chest x-ray - 02/25/20 - FINDINGS: Lungs: Interval slightly worsening bilateral airspace disease. Pleural space: Unremarkable. No pneumothorax. Heart: Unremarkable. No cardiomegaly. Mediastinum: Unremarkable. Bones/joints: Unremarkable. IMPRESSION: Interval slightly worsening bilateral airspace disease. Chest x-ray - 03/02/20 - Procedure: XRAY Chest 1v Indication: Shortness of breath Technique: One view of the chest Comparison: 02/25/2020 Findings: Bilateral interstitial and airspace infiltrates are unchanged. The heart size is normal. Left arm PICC is again demonstrated Impression: Unchanged, over one day, findings as above. Chest x-ray - 03/06/20 - Procedure: XRAY Chest 1v Indication: Shortness of breath Technique: One view of the chest Comparison: 03/02/2020 Findings: Bilateral infiltrates are unchanged. Normal heart size. Pleural spaces are clear Chest x-ray - 03/12/10 - Impression: COMPARISON: Chest radiograph March 06, 2020. FINDINGS/IMPRESSION: Improving basilar infiltrates. Follow chest radiograph recommended. The upper lung finley are clear. No pneumothorax. Stable cardiomegaly. Stable left upper extremity PICC line. anged, over 4 days, findings as above. Microbiology Date/Time Source Procedure Growth Status 03/12/20 05:30 Blood Blood Culture - Preliminary NO GROWTH AFTER 24 HOURS Resulted 02/17/20 19:00 Urine,Clean Catch Urine Culture - Final NO GROWTH AFTER 48 HOURS Complete 02/10/20 06:30 Nasopharynx SARS-CoV-2 RdRp Gene Assay - Final Complete Microbiology Date/Time Source Procedure Growth Status 03/12/20 05:30 Blood Blood Culture - Preliminary NO GROWTH AFTER 24 HOURS Resulted 03/12/20 05:00 Blood Blood Culture - Preliminary NO GROWTH AFTER 24 HOURS Resulted Laboratory Tests Test 03/12/20 22:29 03/13/20 00:18 03/13/20 05:00 03/13/20 05:19 POC Whole Blood Glucose 301 MG/DL (74-106) H 320 MG/DL (74-106) H 300 MG/DL (74-106) H White Blood Count 16.9 K/UL (4.8-10.8) H Red Blood Count 5.26 M/UL (4.70-6.10) Hemoglobin 15.1 G/DL (14.2-18.0) Hematocrit 47.5 % (42.0-52.0) Mean Corpuscular Volume 90 FL (80-99) Mean Corpuscular Hemoglobin 28.7 PG (27.0-31.0) Mean Corpuscular Hemoglobin Concent 31.7 G/DL (32.0-36.0) L Red Cell Distribution Width 13.8 % (11.6-14.8) Platelet Count 166 K/UL (150-450) Mean Platelet Volume 9.2 FL (6.5-10.1) Neutrophils (%) (Auto) % (45.0-75.0) Lymphocytes (%) (Auto) % (20.0-45.0) Monocytes (%) (Auto) % (1.0-10.0) Eosinophils (%) (Auto) % (0.0-3.0) Basophils (%) (Auto) % (0.0-2.0) Differential Total Cells Counted 100 Neutrophils % (Manual) 89 % (45-75) H Lymphocytes % (Manual) 8 % (20-45) L Monocytes % (Manual) 2 % (1-10) Eosinophils % (Manual) 0 % (0-3) Basophils % (Manual) 0 % (0-2) Band Neutrophils 1 % (0-8) Platelet Estimate Adequate Platelet Morphology Normal Red Blood Cell Morphology Normal Sodium Level 135 MMOL/L (136-145) L Potassium Level 4.9 MMOL/L (3.5-5.1) Chloride Level 101 MMOL/L (98-107) Carbon Dioxide Level 30 MMOL/L (21-32) Anion Gap 4 mmol/L (5-15) L Blood Urea Nitrogen 29 mg/dL (7-18) H Creatinine 1.0 MG/DL (0.55-1.30) Estimat Glomerular Filtration Rate > 60 mL/min (>60) Glucose Level 275 MG/DL (74-106) H Calcium Level 9.1 MG/DL (8.5-10.1) Phosphorus Level 3.9 MG/DL (2.5-4.9) Magnesium Level 2.0 MG/DL (1.8-2.4) Total Bilirubin 0.7 MG/DL (0.2-1.0) Gamma Glutamyl Transpeptidase 142 U/L (5-85) H Aspartate Amino Transf (AST/SGOT) 50 U/L (15-37) H Alanine Aminotransferase (ALT/SGPT) 160 U/L (12-78) H Alkaline Phosphatase 142 U/L (46-116) H Ammonia < 10 umol/L (11-32) L Lactate Dehydrogenase 327 U/L (81-234) H Total Protein 6.6 G/DL (6.4-8.2) Albumin 2.4 G/DL (3.4-5.0) L Globulin 4.2 g/dL Albumin/Globulin Ratio 0.6 (1.0-2.7) L Current Medications Medications (Trade) Dose Ordered Sig/Dennis Route PRN Reason Start Time Stop Time Status Last Admin Dose Admin Acetaminophen (Tylenol) 650 mg Q4H PRN ORAL Mild Pain (Pain Scale 1-3) 03/09/20 12:00 04/08/20 11:59 Bisacodyl (Dulcolax) 10 mg HSPRN PRN RECTAL Constipation 02/05/20 13:15 05/05/20 13:14 Chlorhexidine Gluconate (Marlen-Hex 2%) 1 applic DAILY@2000 TOPIC 02/14/20 20:00 05/14/20 19:59 03/12/20 22:20 Clonidine HCl (Catapres TTS-1) 1 patch QWEEK TDERMAL 03/09/20 21:00 06/07/20 20:59 03/09/20 21:00 Dextrose 1,000 ml @ 0 mls/hr Q24H PRN IV PN interrupted or unavailable 03/09/20 20:00 04/08/20 19:59 Dextrose (Dextrose 50%) 25 ml Q30M PRN IV Hypoglycemia 03/10/20 00:00 06/08/20 00:00 Dextrose (Dextrose 50%) 50 ml Q30M PRN IV Hypoglycemia 03/10/20 00:00 06/08/20 00:00 Enoxaparin Sodium (Lovenox) 40 mg DAILY SUBQ 03/13/20 12:00 06/11/20 11:59 03/13/20 11:15 Fat Emulsion Intravenous 216 ml/Amino Acids/ Electrolytes/ Dextrose 2,016 ml @ 84 mls/hr Q24H IV 03/12/20 20:00 03/13/20 19:59 03/12/20 21:13 Fat Emulsion Intravenous 216 ml/Amino Acids/ Electrolytes/ Dextrose 2,016 ml @ 84 mls/hr Q24H IV 03/13/20 20:00 04/12/20 19:59 Hydralazine HCl (Apresoline) 10 mg Q6H PRN IV For High Blood Pressure 03/09/20 17:00 06/07/20 16:59 03/12/20 16:54 Insulin Aspart (NovoLOG) Q6HR SUBQ 03/10/20 00:00 06/08/20 00:00 03/13/20 11:33 Insulin Detemir (Levemir) 15 units Q12HR SUBQ 03/13/20 21:00 06/10/20 20:59 Lactulose (Cephulac) 20 gm THREE TIMES A DAY ORAL 03/08/20 13:00 04/07/20 12:59 03/13/20 11:15 Methylprednisolone Sodium Succinate (Solu-MEDROL) 40 mg EVERY 8 HOURS IVP 03/07/20 18:58 06/05/20 18:57 03/13/20 15:01 Pantoprazole (Protonix) 40 mg EVERY 12 HOURS IVP 03/12/20 21:00 04/11/20 20:59 03/13/20 13:26 Polyethylene Glycol (Miralax) 17 gm BEDTIME ORAL 03/08/20 21:00 04/07/20 20:59 03/10/20 20:33 Promethazine HCl/ Codeine (Phenergan with Codeine) 5 ml Q4H PRN ORAL For Cough 02/22/20 12:15 03/23/20 12:14 03/12/20 09:00 Trimethoprim/ Sulfamethoxazole 20 ml/Dextrose 570 ml @ 380 mls/hr [id number] BACTRIM IV 03/14/20 00:00 03/21/20 00:00 Kisha Salazar MD Mar 13, 2020 18:18
--- NOTE | 2020-03-13 18:39 | NUR ---
NURSE HAND-OFF REPORT: Important Events on Shift:[No remarkable events. Pt continues to have incredible anxiety about removing Bipap. Oral care done and dried saliva and old blood noted. Pulled out as much as pt could tolerate before he began to desat. Pt continues to refuse oral medication] Patient Status: [Full code] Diet: [NPO; TPN] Pending Orders: [] Pending Results/Labs:[] Pending MD notification:[] Latest Vital Signs: Temperature 97.7 , Pulse 88 , B/P 148 /95 , Respiratory Rate 28 , O2 SAT 90 , Room Air, O2 Flow Rate 100.0 . Vital Sign Comment: [] EKG Rhythm: Sinus Rhythm Rhythm change?: N MD Notified?: Courtney Paige MD Response: Message left await call Latest Hassan Fall Score: 45 Fall Risk: High Risk Safety Measures: Call light Within Reach, Bed Alarm Zone 1, Side Rails Side Rails x2, Bed position Low and Locked. Fall Precautions: Yellow Socks Yellow Gown Door Sign Patient Fall Education Report given to [Pending rn assignment]. Addendum: 03/13/20 at 1919 by Franchesca Laws RN Report given to Adelita MATHEW
--- NOTE | 2020-03-13 19:16 | NUR ---
NURSE NOTES: Received report from PRIYANKA Sorensen. Pt is awake, A/Ox4 and verbally responsive but fatigued. Sl[employer] shows SR. BiPAP 20/10, FiO 100%, SpO2 91%, with labored breathing. Denies pain. WAYNE PICC running TPN at 85ml/hr. Condom cath is intact and draining well to gravity. Bed alarm is on, locked, and in lowest position with side rails x2. Call light placed within reach. Will continue plan of care.
[2020-03-13 20:00] VITALS: BP 138/90
[2020-03-13] MEDS: FAT EMULSION 20% IV SCH (20:23)
[2020-03-13] MEDS: Dyna-Hex 2% Top Sol 2oz TOPIC SCH (20:23)
[2020-03-13] MEDS: TPN IV SCH (20:23)
[2020-03-13] MEDS: Miralax 17gm pkt ORAL SCH (20:23)
--- NOTE | 2020-03-13 22:00 | NUR ---
NURSE NOTES: Sponge bath with chlorhexidine is given. Wound cleaned and dressing changed. Pt turned and reposition Tolerating Bipap setting with saturation of 91%. Vital signs are stable. Will continue to closely monitor pt.
[2020-03-13] MEDS: Bactrim 20ml in D5W 550ml IV SCH (23:35)
[2020-03-14] VITALS: BP 140/89
[2020-03-14] MEDS ORDERED: Bactrim 20ml in D5W 550ml IV SCH ×2
--- NOTE | 2020-03-14 03:41 | NUR ---
NURSE NOTES: Pt refused ADL's and linen was told to come back later on. Informed pt that I would come back and change everything when I did his medications and blood draw. Pt acknowledged.
[2020-03-14 04:00] VITALS: BP 140/89
--- NOTE | 2020-03-14 06:06 | NUR ---
NURSE NOTES: Oral done with pt and multiple dark colored pieces of dried saliva and dried boogers from his mouth and nose came free. Pt did desaturated but recovered. Encouraged pt to do multiple times throughout the day. Will endorse to next shift also.
[2020-03-14] MEDS: NovoLOG Insulin Flexpen SUBQ SCH ×4 (06:19→23:32)
[2020-03-14] MEDS: Solu-MEDROL 40mg Inj IVP SCH ×3 (06:19→21:08)
--- NOTE | 2020-03-14 07:05 | NUR ---
NURSE NOTES: Received patient report from PRIYANKA Ureña. Patient is AO x4.Patient on Bipap 20/10, FiO 100%, SpO2 92%, with labored breathing. No pain or discomfort noted at this time. WAYNE PICC running TPN at 85ml/hr. Condom cath is intact and draining well to gravity. Bed in lowest position locked, with side side rails x2 up. Call light within reach.
--- NOTE | 2020-03-14 07:24 | NUR ---
NURSE HAND-OFF REPORT: Important Events on Shift: Oral done and multiple things came out of the mouth. Patient Status: Stable Diet: NPO Pending Orders: Pending Results/Labs: Pending MD notification: Latest Vital Signs: Temperature 97.8 , Pulse 89 , B/P 140 /89 , Respiratory Rate 24 , O2 SAT 93 , Room Air, O2 Flow Rate 100.0 . Vital Sign Comment: EKG Rhythm: Sinus Rhythm Rhythm change?: N MD Notified?: Courtney Paige MD Response: Message left await call Latest Hassan Fall Score: 45 Fall Risk: High Risk Safety Measures: Call light Within Reach, Bed Alarm Zone 1, Side Rails Side Rails x2, Bed position Low and Locked. Fall Precautions: Yellow Socks Yellow Gown Door Sign Patient Fall Education Report given to
[2020-03-14 08:00] VITALS: BP 149/96
--- NOTE | 2020-03-14 08:15 | General Progress Note ---
Subjective ROS Limited/Unobtainable: No Allergies: Coded Allergies: No Known Allergies (Unverified , 02/05/20) Objective Last 24 Hour Vital Signs Date Time Temp Pulse Resp B/P (MAP) Pulse Ox O2 Delivery O2 Flow Rate FiO2 03/14/20 04:00 Bi-pap 100.0 Bi-pap 03/14/20 04:00 100 03/14/20 04:00 97.8 88 24 140/89 (106) 93 03/14/20 04:00 89 03/14/20 03:37 82 28 92 100 03/14/20 00:00 Bi-pap 100.0 Bi-pap 03/14/20 00:00 100 03/14/20 00:00 97.8 88 24 140/89 (106) 93 03/14/20 00:00 89 03/13/20 23:40 86 22 93 100 03/13/20 20:00 97.9 86 27 138/90 (106) 94 03/13/20 19:54 94 03/13/20 19:54 100 03/13/20 19:54 Bi-pap 100.0 Bi-pap 03/13/20 18:29 88 28 90 100 03/13/20 16:00 Bi-pap 100.0 Bi-pap 03/13/20 16:00 100 03/13/20 16:00 99 03/13/20 16:00 97.7 91 22 148/95 (112) 92 03/13/20 15:10 87 26 94 100 03/13/20 12:00 96.1 83 26 152/98 (116) 92 03/13/20 12:00 100 03/13/20 12:00 88 03/13/20 12:00 Bi-pap 100.0 Bi-pap 03/13/20 10:55 87 20 92 100 Intake and Output 03/13/20 03/14/20 19:00 07:00 Intake Total 85 ml 0 ml Output Total 700 ml 1500 ml Balance -615 ml -1500 ml Intake Oral 0 ml 0 ml IV Total 85 ml Output Urine Total 700 ml 1500 ml Laboratory Tests 03/13/20 23:26: POC Whole Blood Glucose [Pending] 03/14/20 05:36: POC Whole Blood Glucose 263H 03/14/20 07:55: White Blood Count [Pending], Red Blood Count [Pending], Hemoglobin [Pending], Hematocrit [Pending], Mean Corpuscular Volume [Pending], Mean Corpuscular Hemoglobin [Pending], Mean Corpuscular Hemoglobin Concent [Pending], Red Cell Distribution Width [Pending], Platelet Count [Pending], Mean Platelet Volume [Pending], Neutrophils (%) (Auto) [Pending], Lymphocytes (%) (Auto) [Pending], Monocytes (%) (Auto) [Pending], Eosinophils (%) (Auto) [Pending], Basophils (%) (Auto) [Pending], Prothrombin Time [Pending], Prothromb Time International Ratio [Pending], Activated Partial Thromboplast Time [Pending], Sodium Level [Pending], Potassium Level [Pending], Chloride Level [Pending], Carbon Dioxide Level [Pending], Blood Urea Nitrogen [Pending], Creatinine [Pending], Estimat Glomerular Filtration Rate [Pending], Glucose Level [Pending], Uric Acid [Pending], Calcium Level [Pending], Phosphorus Level [Pending], Magnesium Level [Pending], Total Bilirubin [Pending], Aspartate Amino Transf (AST/SGOT) [Pending], Alanine Aminotransferase (ALT/SGPT) [Pending], Alkaline Phosphatase [Pending], C-Reactive Protein, Quantitative [Pending], Pro-B-Type Natriuretic Peptide [Pending], Total Protein [Pending], Albumin [Pending], Globulin [Pending], Triglycerides Level [Pending], Cholesterol Level [Pending], LDL Cholesterol [Pending], HDL Cholesterol [Pending], Cholesterol/HDL Ratio [Pending] Height (Feet): 5 Height (Inches): 10.00 Weight (Pounds): 240 General Appearance: mild distress EENT: normal ENT inspection Neck: supple Cardiovascular: normal rate Respiratory/Chest: decreased breath sounds Abdomen: normal bowel sounds, non tender, soft Extremities: non-tender Assessment/Plan Status: not improved, unchanged Assessment/Plan: covid + on BIPAP DM HTN FTT constipation not stable for PEG could not tolerate NGT placement TPN for now bowel regimen covid care rising LFTS>>> will monitor will Da Wilson MD Mar 14, 2020 08:15
[2020-03-14 08:21] LABS: HEMATOCRIT 44.4 % (42.0-52.0); HEMOGLOBIN 14.8 G/DL (14.2-18.0); MEAN CORPUSCULAR VOLUME 87 FL (80-99); PLATELET COUNT 169 K/UL (150-450); RED BLOOD COUNT 5.12 M/UL (4.70-6.10); WHITE BLOOD COUNT 14.5 K/UL (4.8-10.8)
[2020-03-14 08:37] LABS: ALANINE AMINOTRANSFERASE 140 U/L (12-78); ALBUMIN 2.4 G/DL (3.4-5.0); ALBUMIN/GLOBULIN RATIO 0.6 (1.0-2.7); ALKALINE PHOSPHATASE 137 U/L (46-116); ANION GAP 5 mmol/L (5-15); ASPARTATE AMINO TRANSFERASE 51 U/L (15-37); BILIRUBIN,TOTAL 1.1 MG/DL (0.2-1.0); BLOOD UREA NITROGEN 30 mg/dL (7-18); CALCIUM 8.1 MG/DL (8.5-10.1); CARBON DIOXIDE 30 MMOL/L (21-32); CHLORIDE 101 MMOL/L (98-107); CHOLESTEROL 195 MG/DL (< 200); CREATININE 0.9 MG/DL (0.55-1.30); HDL CHOLESTEROL 34 MG/DL (40-60); PHOSPHORUS 3.2 MG/DL (2.5-4.9); POTASSIUM 4.4 MMOL/L (3.5-5.1); SODIUM 136 MMOL/L (136-145); TRIGLYCERIDES 293 MG/DL (30-150)
[2020-03-14] MEDS: Enoxaparin 40mg Inj SUBQ SCH (08:37)
[2020-03-14 08:39] LABS: BILIRUBIN,DIRECT 0.6 MG/DL (0.0-0.3)
[2020-03-14] MEDS: Pantoprazole Inj IVP SCH ×2 (08:44→21:08)
[2020-03-14] MEDS: Lactulose 20gm/30ml UDC ORAL SCH ×3 (08:44→17:25)
[2020-03-14] MEDS: Bactrim 20ml in D5W 550ml IV SCH ×3 (08:44→23:22)
[2020-03-14] MEDS: Levemir Flexpen SUBQ SCH ×2 (09:04→21:06)
--- NOTE | 2020-03-14 10:03 | Nephrology Progress Note ---
Assessment/Plan Problem List: (1) Dehydration (2) Electrolyte imbalance (3) COVID-19 virus infection (4) Pneumonia (5) DMII (diabetes mellitus, type 2) (6) Protein malnutrition Assessment Azotemia, hypernatremia Hypoalbuminemia Staff Otilia bacteremia COVID-19 isolation, pneumonia, bilateral infiltrate Hypertension Diabetes mellitus History of smoking Plan March 14: Remains on TPN. Labs reviewed, stable. Vitamin D level low, rep lacement ordered. Continue to monitor electrolytes and renal parameters. March 13: Patient remains on TPN. Discussed with pharmacist. TPN's sodium content adjusted. Labs reviewed. Continue to monitor electrolytes. Blood pressure remains stable. Continue per consultants. March 12: Patient on TPN. Labs reviewed. CPK remains elevated. Abnormal electrolytes and high blood sugar discussed with pharmacist and TPN adjusted. Continue to monitor labs. Oral Protonix added. Ibuprofen discontinued. Can continue to monitor electrolytes and chemistries. Levemir for high blood sugar added. March 11: Patient on TPN. Labs as of 11:15 AM is still pending. Continue per current treatment plan. Will check labs and adjust TPN as needed. Continue per consultants. March 10: Patient on TPN. Labs reviewed. Electrolytes overall stable. CPK is elevated. Will monitor electrolyte, CPK level, lipid panel. Continue per consultants. Discussed with pharmacist. Discussed with RN. Nutritional evaluation noted. Previously: D5W 100 cc an hour Monitor electrolytes renal parameters TPN and Intralipid ordered Will follow Continue per consultants Dietary consult requested Subjective ROS Limited/Unobtainable: Yes Objective Objective Last 24 Hour Vital Signs Date Time Temp Pulse Resp B/P (MAP) Pulse Ox O2 Delivery O2 Flow Rate FiO2 03/14/20 04:00 Bi-pap 100.0 Bi-pap 03/14/20 04:00 100 03/14/20 04:00 97.8 88 24 140/89 (106) 93 03/14/20 04:00 89 03/14/20 03:37 82 28 92 100 03/14/20 00:00 Bi-pap 100.0 Bi-pap 03/14/20 00:00 100 03/14/20 00:00 97.8 88 24 140/89 (106) 93 03/14/20 00:00 89 03/13/20 23:40 86 22 93 100 03/13/20 20:00 97.9 86 27 138/90 (106) 94 03/13/20 19:54 94 03/13/20 19:54 100 03/13/20 19:54 Bi-pap 100.0 Bi-pap 03/13/20 18:29 88 28 90 100 03/13/20 16:00 Bi-pap 100.0 Bi-pap 03/13/20 16:00 100 03/13/20 16:00 99 03/13/20 16:00 97.7 91 22 148/95 (112) 92 03/13/20 15:10 87 26 94 100 03/13/20 12:00 96.1 83 26 152/98 (116) 92 03/13/20 12:00 100 03/13/20 12:00 88 03/13/20 12:00 Bi-pap 100.0 Bi-pap 03/13/20 10:55 87 20 92 100 Intake and Output 03/13/20 03/14/20 19:00 07:00 Intake Total 85 ml 0 ml Output Total 700 ml 1500 ml Balance -615 ml -1500 ml Intake Oral 0 ml 0 ml IV Total 85 ml Output Urine Total 700 ml 1500 ml Current Medications Medications (Trade) Dose Ordered Sig/Dennis Route PRN Reason Start Time Stop Time Status Last Admin Dose Admin Acetaminophen (Tylenol) 650 mg Q4H PRN ORAL Mild Pain (Pain Scale 1-3) 03/09/20 12:00 04/08/20 11:59 Bisacodyl (Dulcolax) 10 mg HSPRN PRN RECTAL Constipation 02/05/20 13:15 05/05/20 13:14 Chlorhexidine Gluconate (Marlen-Hex 2%) 1 applic DAILY@2000 TOPIC 02/14/20 20:00 05/14/20 19:59 03/13/20 20:23 Clonidine HCl (Catapres TTS-1) 1 patch QWEEK TDERMAL 03/09/20 21:00 06/07/20 20:59 03/09/20 21:00 Dextrose 1,000 ml @ 0 mls/hr Q24H PRN IV PN interrupted or unavailable 03/09/20 20:00 04/08/20 19:59 Dextrose (Dextrose 50%) 25 ml Q30M PRN IV Hypoglycemia 03/10/20 00:00 06/08/20 00:00 Dextrose (Dextrose 50%) 50 ml Q30M PRN IV Hypoglycemia 03/10/20 00:00 06/08/20 00:00 Enoxaparin Sodium (Lovenox) 40 mg DAILY SUBQ 03/13/20 12:00 06/11/20 11:59 03/14/20 08:37 Fat Emulsion Intravenous 216 ml/Amino Acids/ Electrolytes/ Dextrose 2,016 ml @ 84 mls/hr Q24H IV 03/13/20 20:00 04/12/20 19:59 03/13/20 20:23 Hydralazine HCl (Apresoline) 10 mg Q6H PRN IV For High Blood Pressure 03/09/20 17:00 06/07/20 16:59 03/12/20 16:54 Insulin Aspart (NovoLOG) Q6HR SUBQ 03/10/20 00:00 06/08/20 00:00 03/14/20 06:19 Insulin Detemir (Levemir) 18 units Q12HR SUBQ 03/14/20 21:00 06/10/20 20:59 UNV Lactulose (Cephulac) 20 gm THREE TIMES A DAY ORAL 03/08/20 13:00 04/07/20 12:59 03/14/20 08:44 Methylprednisolone Sodium Succinate (Solu-MEDROL) 40 mg EVERY 8 HOURS IVP 03/07/20 18:58 06/05/20 18:57 03/14/20 06:19 Pantoprazole (Protonix) 40 mg EVERY 12 HOURS IVP 03/12/20 21:00 04/11/20 20:59 03/14/20 08:44 Polyethylene Glycol (Miralax) 17 gm BEDTIME ORAL 03/08/20 21:00 04/07/20 20:59 03/10/20 20:33 Promethazine HCl/ Codeine (Phenergan with Codeine) 5 ml Q4H PRN ORAL For Cough 02/22/20 12:15 03/23/20 12:14 03/12/20 09:00 Trimethoprim/ Sulfamethoxazole 20 ml/Dextrose 570 ml @ 380 mls/hr [id number] BACTRIM IV 03/14/20 00:00 03/21/20 00:00 03/14/20 08:44 Laboratory Tests 03/13/20 23:26: POC Whole Blood Glucose [Pending] 03/14/20 05:36: POC Whole Blood Glucose 263H 03/14/20 07:55: White Blood Count 14.5H, Red Blood Count 5.12, Hemoglobin 14.8, Hematocrit 44.4, Mean Corpuscular Volume 87, Mean Corpuscular Hemoglobin 28.9, Mean Corpuscular Hemoglobin Concent 33.3, Red Cell Distribution Width 14.0, Platelet Count 169, Mean Platelet Volume 9.9, Neutrophils (%) (Auto) , Lymphocytes (%) (Auto) , Monocytes (%) (Auto) , Eosinophils (%) (Auto) , Basophils (%) (Auto) , Neutrophils % (Manual) [Pending], Lymphocytes % (Manual) [Pending], Platelet Estimate [Pending], Platelet Morphology [Pending], Sodium Level 136, Potassium Level 4.4, Chloride Level 101, Carbon Dioxide Level 30, Anion Gap 5, Blood Urea Nitrogen 30H, Creatinine 0.9, Estimat Glomerular Filtration Rate > 60, Glucose Level 216H, Uric Acid 1.6L, Calcium Level 8.1L, Phosphorus Level 3.2, Magnesium Level 2.0, Total Bilirubin 1.1H, Direct Bilirubin 0.6H, Aspartate Amino Transf (AST/SGOT) 51H, Alanine Aminotransferase (ALT/SGPT) 140H, Alkaline Phosphatase 137H, C-Reactive Protein, Quantitative < 0.4, Pro-B-Type Natriuretic Peptide 239H, Total Protein 6.3L, Albumin 2.4L, Globulin 3.9, Albumin/Globulin Ratio 0.6L, Triglycerides Level 293H, Cholesterol Level 195, LDL Cholesterol 121H, HDL Cholesterol 34L, Cholesterol/HDL Ratio 5.7H 03/14/20 08:22: Prothrombin Time 11.4, Prothromb Time International Ratio 1.0, Activated Partial Thromboplast Time 24 Height (Feet): 5 Height (Inches): 10.00 Weight (Pounds): 240 General Appearance: no apparent distress EENT: other - On BiPAP Cardiovascular: tachycardia Respiratory/Chest: decreased breath sounds Abdomen: distended Rubin Cooper MD Mar 14, 2020 10:02
--- NOTE | 2020-03-14 10:50 | NUR ---
Benefits Specialist RecruiterDrum Sprayer SI: Respiratory Failure, COVID PNA T 97.2, HR 86, RR 24, BP 149/96 BIPAP 20/10, FiO2 100% O2 sat 94% WBC 14.5, BUN 30 cxray improving basilar infiltrates IS: Bactrim IV q 8 hrs Lovenox SQ q 12 h solu-medrol IVP q h hrs TPN 85ml/hr q 24 h Step Down Status
--- NOTE | 2020-03-14 11:05 | Pulmonology Progress Note ---
Subjective ROS Limited/Unobtainable: Yes Interval Events: tolerating BiPAP; saturating better Constitutional: Reports: other - respiratory stable; Denies: fever HEENT: Repors: no symptoms Respiratory: Reports: dry cough, shortness of breath Cardiovascular: Reports: no symptoms Gastrointestinal/Abdominal: Denies: nausea, vomiting, diarrhea Psychiatric: Denies: depression Skin: Denies: rash Musculoskeletal: Denies: pain Allergies: Coded Allergies: No Known Allergies (Unverified , 02/05/20) Objective Last 24 Hour Vital Signs Date Time Temp Pulse Resp B/P (MAP) Pulse Ox O2 Delivery O2 Flow Rate FiO2 03/14/20 08:00 100 03/14/20 08:00 97.2 86 24 149/96 (113) 94 03/14/20 08:00 Bi-pap 100.0 Bi-pap 03/14/20 08:00 85 03/14/20 04:00 Bi-pap 100.0 Bi-pap 03/14/20 04:00 100 03/14/20 04:00 97.8 88 24 140/89 (106) 93 03/14/20 04:00 89 03/14/20 03:37 82 28 92 100 03/14/20 00:00 Bi-pap 100.0 Bi-pap 03/14/20 00:00 100 03/14/20 00:00 97.8 88 24 140/89 (106) 93 03/14/20 00:00 89 03/13/20 23:40 86 22 93 100 03/13/20 20:00 97.9 86 27 138/90 (106) 94 03/13/20 19:54 94 03/13/20 19:54 100 03/13/20 19:54 Bi-pap 100.0 Bi-pap 03/13/20 18:29 88 28 90 100 03/13/20 16:00 Bi-pap 100.0 Bi-pap 03/13/20 16:00 100 03/13/20 16:00 99 03/13/20 16:00 97.7 91 22 148/95 (112) 92 03/13/20 15:10 87 26 94 100 03/13/20 12:00 96.1 83 26 152/98 (116) 92 03/13/20 12:00 100 03/13/20 12:00 88 03/13/20 12:00 Bi-pap 100.0 Bi-pap Intake and Output 03/13/20 03/14/20 19:00 07:00 Intake Total 85 ml 0 ml Output Total 700 ml 1500 ml Balance -615 ml -1500 ml Intake Oral 0 ml 0 ml IV Total 85 ml Output Urine Total 700 ml 1500 ml General Appearance: WD/WN, no acute distress HEENT: normocephalic, atraumatic Respiratory: chest wall non-tender Cardiovascular: normal rate, regular rhythm Abdomen: normal bowel sounds, soft, non tender, other - obese Microbiology Date/Time Source Procedure Growth Status 03/12/20 05:30 Blood Blood Culture - Preliminary NO GROWTH AFTER 24 HOURS Resulted 03/12/20 05:00 Blood Blood Culture - Preliminary NO GROWTH AFTER 24 HOURS Resulted Laboratory Tests 03/13/20 23:26: POC Whole Blood Glucose [Pending] 03/14/20 05:36: POC Whole Blood Glucose 263H 03/14/20 07:55: White Blood Count 14.5H, Red Blood Count 5.12, Hemoglobin 14.8, Hematocrit 44.4, Mean Corpuscular Volume 87, Mean Corpuscular Hemoglobin 28.9, Mean Corpuscular Hemoglobin Concent 33.3, Red Cell Distribution Width 14.0, Platelet Count 169, Mean Platelet Volume 9.9, Neutrophils (%) (Auto) , Lymphocytes (%) (Auto) , Monocytes (%) (Auto) , Eosinophils (%) (Auto) , Basophils (%) (Auto) , Differential Total Cells Counted 100, Neutrophils % (Manual) 96H, Lymphocytes % (Manual) 2L, Monocytes % (Manual) 2, Eosinophils % (Manual) 0, Basophils % (Manual) 0, Band Neutrophils 0, Platelet Estimate Adequate, Platelet Morphology Normal, Anisocytosis 1+, Sodium Level 136, Potassium Level 4.4, Chloride Level 101, Carbon Dioxide Level 30, Anion Gap 5, Blood Urea Nitrogen 30H, Creatinine 0.9, Estimat Glomerular Filtration Rate > 60, Glucose Level 216H, Uric Acid 1.6L , Calcium Level 8.1L, Phosphorus Level 3.2, Magnesium Level 2.0, Total Bilirubin 1.1H, Direct Bilirubin 0.6H, Aspartate Amino Transf (AST/SGOT) 51H, Alanine Aminotransferase (ALT/SGPT) 140H, Alkaline Phosphatase 137H, C-Reactive Protein, Quantitative < 0.4, Pro-B-Type Natriuretic Peptide 239H, Total Protein 6.3L, Albumin 2.4L, Globulin 3.9, Albumin/Globulin Ratio 0.6L, Triglycerides Level 293H, Cholesterol Level 195, LDL Cholesterol 121H, HDL Cholesterol 34L, Cholesterol/HDL Ratio 5.7H 03/14/20 08:22: Prothrombin Time 11.4, Prothromb Time International Ratio 1.0, Activated Partial Thromboplast Time 24 Current Medications Medications (Trade) Dose Ordered Sig/Dennis Route PRN Reason Start Time Stop Time Status Last Admin Dose Admin Acetaminophen (Tylenol) 650 mg Q4H PRN ORAL Mild Pain (Pain Scale 1-3) 03/09/20 12:00 04/08/20 11:59 Bisacodyl (Dulcolax) 10 mg HSPRN PRN RECTAL Constipation 02/05/20 13:15 05/05/20 13:14 Chlorhexidine Gluconate (Marlen-Hex 2%) 1 applic DAILY@2000 TOPIC 02/14/20 20:00 05/14/20 19:59 03/13/20 20:23 Clonidine HCl (Catapres TTS-1) 1 patch QWEEK TDERMAL 03/09/20 21:00 06/07/20 20:59 03/09/20 21:00 Dextrose 1,000 ml @ 0 mls/hr Q24H PRN IV PN interrupted or unavailable 03/09/20 20:00 04/08/20 19:59 Dextrose (Dextrose 50%) 25 ml Q30M PRN IV Hypoglycemia 03/10/20 00:00 06/08/20 00:00 Dextrose (Dextrose 50%) 50 ml Q30M PRN IV Hypoglycemia 03/10/20 00:00 06/08/20 00:00 Enoxaparin Sodium (Lovenox) 40 mg DAILY SUBQ 03/13/20 12:00 06/11/20 11:59 03/14/20 08:37 Ergocalciferol (Drisdol) 50,000 intlu QWEEK ORAL 03/14/20 11:30 04/13/20 11:29 Fat Emulsion Intravenous 216 ml/Amino Acids/ Electrolytes/ Dextrose 2,016 ml @ 84 mls/hr Q24H IV 03/13/20 20:00 04/12/20 19:59 03/13/20 20:23 Hydralazine HCl (Apresoline) 10 mg Q6H PRN IV For High Blood Pressure 03/09/20 17:00 06/07/20 16:59 03/12/20 16:54 Insulin Aspart (NovoLOG) Q6HR SUBQ 03/10/20 00:00 06/08/20 00:00 03/14/20 06:19 Insulin Detemir (Levemir) 18 units Q12HR SUBQ 03/14/20 21:00 06/10/20 20:59 Lactulose (Cephulac) 20 gm THREE TIMES A DAY ORAL 03/08/20 13:00 04/07/20 12:59 03/14/20 08:44 Methylprednisolone Sodium Succinate (Solu-MEDROL) 40 mg EVERY 8 HOURS IVP 03/07/20 18:58 06/05/20 18:57 03/14/20 06:19 Pantoprazole (Protonix) 40 mg EVERY 12 HOURS IVP 03/12/20 21:00 04/11/20 20:59 03/14/20 08:44 Polyethylene Glycol (Miralax) 17 gm BEDTIME ORAL 03/08/20 21:00 04/07/20 20:59 03/10/20 20:33 Promethazine HCl/ Codeine (Phenergan with Codeine) 5 ml Q4H PRN ORAL For Cough 02/22/20 12:15 03/23/20 12:14 03/12/20 09:00 Trimethoprim/ Sulfamethoxazole 20 ml/Dextrose 570 ml @ 380 mls/hr Q6XA-IO BACTRIM IV 03/14/20 00:00 03/21/20 00:00 03/14/20 08:44 Vitamin D (Vitamin D) 5,000 unit DAILY ORAL 03/15/20 09:00 04/14/20 08:59 Assessment/Plan Assessment/Plan 1.COVID-19 pneumonia. - last COVID-19 test positive after two negative tests - CTA 02/05/2020 ground-glass and consolidating infiltrates in the dependent portions of both lower lobes and to lesser degree the upper lobes consistent with bilateral pneumonia. No evidence of pulmonary embolus. - CXR 02/17/2020 worsening bilateral infiltrates; Repeat CXR shows basilar linear densities - CT chest 02/18 shows Increased extensive patchy ground-glass opacities and densities throughout the lungs, suggestive of Covid 19 infection. - currently on BiPAP. Saturations 90%. - Mycoplasma pneumoniae IgG 273; M. pneumoniae IgM titer within normal limits - D-dimer 0.90; on full dose Lovenox -Discontinued Decadron, now on Solumedrol - s/p remdesivir - is now net I/O negative -We will continue TPN He has had a progressive increase in LDH,-started on Bactrim due to concern about pneumocystis. - Looking unchanged today. 2. Initial negative rapid COVID-19 gene assay.- however repeat COVID-19 test positive 3. Smoker. 4. DVT ppx - on lovenox 5. Hypertension - on hydralazine, and norvasc - On cardiac diet 6. Blood culture positive for gram positive cocci staph aureus - on Abx - CT abd/pelvis showed no abscess per ID - TTE/ FERNY held off due to COVID-19 status - PICC line in place (Patient was seen earlier today. Signature timestamp does not reflect patient encounter time) John Mata MD . John Mata MD Mar 14, 2020 11:05
[2020-03-14] MEDS ORDERED: Vitamin D 50,000 units cap ORAL SCH (11:30)
[2020-03-14 12:00] VITALS: BP 138/88
--- NOTE | 2020-03-14 13:02 | Cardiology Report ---
APPROVED REPORT EXAM: Two-dimensional and M-mode echocardiogram with Doppler and color Doppler. INDICATION Cardiomyopathy M-Mode DIMENSIONS IVSd1.1 (0.7-1.1cm)Left Atrium (MM)2.2 (1.6-4.0cm) LVDd3.6 (3.5-5.6cm)Aortic Root2.8 (2.0-3.7cm) PWd1.1 (0.7-1.1cm)Aortic Cusp Exc.1.7 (1.5-2.0cm) IVSs1.4 cmEPSS0.5 (>1.0cm) LVDs2.3 (2.5-4.0cm) PWs1.4 cm <Conclusion> Technically difficult and limited study due to pt's ventilator and poor acoustical windows. All the images are taken from apical windows. Normal left ventricular chamber size, systolic function and wall motion to extent visualized. Left ventricular ejection fraction estimated to be 60 %. No evidence of left ventricular hypertrophy. No evidence of pericardial effusion. All other cardiac chamber sizes are within normal limits. Focal aortic valve sclerosis with adequate cusp excursion. Thickened mitral valve leaflets with normal excursion. Mitral annulus and aortic root calcification. Normal tricuspid valve structure. Subcostal views are not obtainable due to GI tube. A color flow and spectral Doppler study was performed and revealed: Trace aortic regurgitation. Trace mitral regurgitation. Mitral diastolic velocities suggest reduced left ventricular relaxation c/w mild LV diastolic dysfunction (Grade I ). Trace tricuspid regurgitation. Tricuspid systolic velocities suggests peak right ventricular systolic pressure of 16 mmHg.
[2020-03-14 16:00] VITALS: BP 140/80
[2020-03-14] MEDS ORDERED: Tubing IV Secondary IV ONE (17:33)
[2020-03-14] MEDS ORDERED: NS 275ml ONE (17:33)
--- NOTE | 2020-03-14 19:00 | NUR ---
NURSE HAND-OFF REPORT: Important Events on Shift:NA Patient Status: Stable Diet: NPO Pending Orders: NA Pending Results/Labs:NA Pending notification:NA Latest Vital Signs: Temperature 98.1 , Pulse 84 , B/P 140 /80 , Respiratory Rate 21 , O2 SAT 92 , Room Air, O2 Flow Rate 100.0 . Vital Sign Comment: Stable EKG Rhythm: Sinus Rhythm Rhythm change?: N MD Notified?: Courtney Paige MD Response: Message left await call Latest Hassan Fall Score: 45 Fall Risk: High Risk Safety Measures: Call light Within Reach, Bed Alarm Zone 1, Side Rails Side Rails x2, Bed position Low and Locked. Fall Precautions: Yellow Socks Yellow Gown Door Sign Patient Fall Education Report given to PRIYANKA Ureña.
--- NOTE | 2020-03-14 19:25 | NUR ---
NURSE NOTES: Received report from PRIYANKA Looney. Pt is awake, A/Ox4 and verbally responsive but very anxious. Hot Die Picker shows SR. BiPAP 20/10, FiO 100% with saturation of 90% with some labored breathing. No pain noted. Pt has a WAYNE PICC running TPN at 85ml/hr. Condom cath is intact and draining well to gravity with yellow urine. Bed alarm is on, locked, and in lowest position with side rails x2. Call light placed within reach. Will continue plan of care.
[2020-03-14 20:00] VITALS: BP 156/69
[2020-03-14] MEDS: FAT EMULSION 20% IV SCH (20:07)
[2020-03-14] MEDS: TPN IV SCH (20:07)
[2020-03-14] MEDS: Dyna-Hex 2% Top Sol 2oz TOPIC SCH (20:08)
[2020-03-14] MEDS: Miralax 17gm pkt ORAL SCH (21:00)
--- NOTE | 2020-03-14 21:03 | NUR ---
NURSE NOTES: Sponge bath with chlorhexidine is given and tolerated well. Pt refused to turn to be able to get his back and buttocks.
--- NOTE | 2020-03-14 22:01 | NUR ---
NURSE NOTES: Oral care done and tolerated well. Pt refused other ADL's. Also refused the linens to be changed. Will continue to try again.
[2020-03-15] VITALS: BP 145/85
--- NOTE | 2020-03-15 03:06 | NUR ---
NURSE NOTES: Pt care done and wound changed again and intact. Pt's tolerated changing and vitals stable. All linens changed again and repositioned on all pressure points.
[2020-03-15 04:00] VITALS: BP 150/90
[2020-03-15] MEDS: Solu-MEDROL 40mg Inj IVP SCH ×3 (05:27→21:25)
[2020-03-15] MEDS: NovoLOG Insulin Flexpen SUBQ SCH ×4 (05:28→23:33)
[2020-03-15 05:34] LABS: HEMATOCRIT 43.4 % (42.0-52.0); HEMOGLOBIN 13.9 G/DL (14.2-18.0); MEAN CORPUSCULAR VOLUME 98 FL (80-99); PLATELET COUNT 165 K/UL (150-450); RED BLOOD COUNT 4.43 M/UL (4.70-6.10); RED CELL DISTRIBUTION WIDTH 15.2 % (11.6-14.8); WHITE BLOOD COUNT 11.6 K/UL (4.8-10.8)
--- NOTE | 2020-03-15 07:08 | NUR ---
NURSE HAND-OFF REPORT: Important Events on Shift: Oral care Done Patient Status: Guarded Diet: TPN Pending Orders: Pending Results/Labs: Pending MD notification: Latest Vital Signs: Temperature 98.1 , Pulse 92 , B/P 150 /90 , Respiratory Rate 21 , O2 SAT 93 , Room Air, O2 Flow Rate 100.0 . Vital Sign Comment: EKG Rhythm: Sinus Rhythm Rhythm change?: N MD Notified?: Courtney Paige MD Response: Message left await call Latest Hassan Fall Score: 45 Fall Risk: High Risk Safety Measures: Call light Within Reach, Bed Alarm Zone 1, Side Rails Side Rails x2, Bed position Low and Locked. Fall Precautions: Yellow Socks Yellow Gown Door Sign Patient Fall Education Report given to Nadja.
--- NOTE | 2020-03-15 07:31 | NUR ---
NURSE NOTES: Received report from PRIYANKA Ureña. Pt is AOx4, stable and resting in bed. Pt has no s/s or complaint of distress at this time. pt is on Bipap 20/10 fio2 100% saturating 92%spo2. Pt sacral stage 1 noted. WAYNE PICC double lumen. Pt bed low and locked, call light in reach and bed alarm on. pt verbalized understanding of call light. TOWBOAT ENGINEER bedside at this time.
[2020-03-15 08:00] VITALS: BP 129/96
--- NOTE | 2020-03-15 08:55 | General Progress Note ---
Subjective ROS Limited/Unobtainable: No Allergies: Coded Allergies: No Known Allergies (Unverified , 02/05/20) Objective Last 24 Hour Vital Signs Date Time Temp Pulse Resp B/P (MAP) Pulse Ox O2 Delivery O2 Flow Rate FiO2 03/15/20 04:00 88 03/15/20 04:00 100 03/15/20 04:00 98.1 92 21 150/90 (110) 93 03/15/20 04:00 Bi-pap 100.0 Bi-pap 03/15/20 03:17 92 16 93 100 03/15/20 00:00 85 03/15/20 00:00 97.9 83 22 145/85 (105) 94 03/15/20 00:00 Bi-pap 100.0 Bi-pap 03/15/20 00:00 100 03/14/20 23:14 92 15 96 100 03/14/20 20:00 98.0 87 24 156/69 (98) 90 03/14/20 20:00 85 03/14/20 19:42 Bi-pap 100.0 Bi-pap 03/14/20 19:42 100 03/14/20 19:05 84 21 92 100 03/14/20 16:00 Bi-pap 100.0 Bi-pap 03/14/20 16:00 100 03/14/20 16:00 98.1 95 23 140/80 (100) 90 03/14/20 16:00 90 03/14/20 13:33 86 23 90 100 03/14/20 12:00 100 03/14/20 12:00 Bi-pap 100.0 Bi-pap 03/14/20 12:00 93 03/14/20 12:00 97.7 88 21 138/88 (105) 93 Intake and Output 03/14/20 03/15/20 19:00 07:00 Intake Total 0 ml 0 ml Output Total 800 ml 1100 ml Balance -800 ml -1100 ml Intake Oral 0 ml 0 ml Output Urine Total 800 ml 1100 ml Laboratory Tests 03/14/20 23:28: POC Whole Blood Glucose 235H 03/15/20 05:10: White Blood Count 11.6H, Red Blood Count 4.43L, Hemoglobin 13.9L, Hematocrit 43.4, Mean Corpuscular Volume 98#, Mean Corpuscular Hemoglobin 31.4H, Mean Corpuscular Hemoglobin Concent 32.1, Red Cell Distribution Width 15.2H, Platelet Count 165, Mean Platelet Volume 9.2, Neutrophils (%) (Auto) , Lymphocytes (%) (Auto) , Monocytes (%) (Auto) , Eosinophils (%) (Auto) , Basophils (%) (Auto) , Neutrophils % (Manual) [Pending], Lymphocytes % (Manual) [Pending], Platelet Estimate [Pending], Platelet Morphology [Pending] 03/15/20 05:16: POC Whole Blood Glucose 262H 03/15/20 08:07: Sodium Level [Pending], Potassium Level [Pending], Chloride Level [Pending], Carbon Dioxide Level [Pending], Blood Urea Nitrogen [Pending], Creatinine [Pending], Estimat Glomerular Filtration Rate [Pending], Glucose Level [Pending], Uric Acid [Pending], Calcium Level [Pending], Phosphorus Level [Pending], Magnesium Level [Pending], Total Bilirubin [Pending], Aspartate Amino Transf (AST/SGOT) [Pending], Alanine Aminotransferase (ALT/SGPT) [Pending], Alkaline Phosphatase [Pending], C-Reactive Protein, Quantitative [Pending], Total Protein [Pending], Albumin [Pending], Globulin [Pending] Height (Feet): 5 Height (Inches): 10.00 Weight (Pounds): 240 General Appearance: no apparent distress EENT: normal ENT inspection Neck: supple Cardiovascular: normal rate Respiratory/Chest: decreased breath sounds Abdomen: normal bowel sounds, non tender, soft Extremities: non-tender Assessment/Plan Status: not improved, unchanged Assessment/Plan: covid + on BIPAP DM HTN FTT constipation not stable for PEG could not tolerate NGT placement TPN for now bowel regimen covid care rising LFTS>>> will monitor will Da Wilson MD Mar 15, 2020 08:55
[2020-03-15 08:56] LABS: PHOSPHORUS 3.3 MG/DL (2.5-4.9)
[2020-03-15] MEDS: Lactulose 20gm/30ml UDC ORAL SCH ×4 (09:00→17:21)
[2020-03-15] MEDS: Vitamin D 1000 units Tab ORAL SCH ×2 (09:00→09:25)
[2020-03-15 09:04] LABS: ALANINE AMINOTRANSFERASE 168 U/L (12-78); ALBUMIN 2.4 G/DL (3.4-5.0); ALBUMIN/GLOBULIN RATIO 0.6 (1.0-2.7); ALKALINE PHOSPHATASE 160 U/L (46-116); ANION GAP 4 mmol/L (5-15); ASPARTATE AMINO TRANSFERASE 66 U/L (15-37); BILIRUBIN,TOTAL 1.3 MG/DL (0.2-1.0); BLOOD UREA NITROGEN 25 mg/dL (7-18); CALCIUM 8.5 MG/DL (8.5-10.1); CARBON DIOXIDE 31 MMOL/L (21-32); CHLORIDE 99 MMOL/L (98-107); CREATININE 0.9 MG/DL (0.55-1.30); POTASSIUM 5.2 MMOL/L (3.5-5.1); SODIUM 134 MMOL/L (136-145)
[2020-03-15 09:08] LABS: BILIRUBIN,DIRECT 0.8 MG/DL (0.0-0.3)
[2020-03-15] MEDS: Bactrim 20ml in D5W 550ml IV SCH ×3 (09:17→23:20)
[2020-03-15] MEDS: Pantoprazole Inj IVP SCH ×2 (09:17→20:17)
[2020-03-15] MEDS: Levemir Flexpen SUBQ SCH ×2 (09:26→21:22)
[2020-03-15] MEDS: Enoxaparin 40mg Inj SUBQ SCH (09:26)
--- NOTE | 2020-03-15 09:43 | NUR ---
RD ASSESSMENT & RECOMMENDATIONS SEE CARE ACTIVITY FOR COMPLETE ASSESSMENT DAILY ESTIMATED NEEDS: Needs based on Pulmonary, cardiac 81kg abw 23-28 kcals/kg 7633-3005 total kcals 1.25-1.5 g protein/kg 101-122 g total protein 25-30 mL/kg 7184-8136 total fluid mLs NUTRITION DIAGNOSIS: * Inadequate oral intake R/T clinical and respiratory status as evidenced by COVID-19 ++, on continuous BIPAP, prolonged meal refusals. * Decreased sodium and fat needs r/t HTN and obesity as evidenced by pt w/ cardiac history, elev BP (159/98-> now improved, on BP meds and diuretics), BMI >30, obese per guidelines. PO DIET RECOMMENDATIONS: Liberalized REGULAR w/ poor PO at this time (texture per GAME ATTENDANT) ENTERAL NUTRITION RECOMMENDATIONS: Glucerna 1.5 goal of 56ml/hr x24 hrs to meet needs to provide 1344ml, 2016 kcal, 111g pro, 1020ml free H2O - If medically able, rec non oral feeds. - GOAL ABOVE IF TOLERATED WITHOUT ASPIRATION/ Otherwise run at rate tolerated to provide partial nutrition and maintain gut integrity. - Start @16ml for 6 hrs, advance as tolerated 10ml/hr q4-6 hrs to goal - Flush per . HOB over 30 degrees. - With non oral feeds rec added Vit C . PARENTERAL NUTRITION RECOMMENDATIONS: D/AA Rate: 75 IL Rate: 9 Total Rate: 84 Volume: 2016 % Dextrose: 17 % AA: 5.5 Energy (kcals/kg): 1863 Protein (g/kg protein): 99 Nonprotein KCALS: 1472.4 GIR (mg CHO/kg/min): 2 % Fat KCALS: 23 NCP: N Ratio: 93:1 TPN Comment: - Rec TF change d/t elevated BG and LFT's - D17 + AA5.5 @75ml/hr with IL20% @9ml/hr- all 3:1 - Monitor BG, need for niss - Check lytes daily, replete as needed ADDITIONAL RECOMMENDATIONS: 1) Maintain calibrated bedscale wts; obtain a standing wt as able 2) Obtain HgA1C for eval 3) Monitor PO intake: decreased intake on 02/14 per EMR Now on TPN -> Monitor LFT's, need for formulary change 4) Monitor hydration status- now on TPN 5) Consider TPN -> now ordered 03/09
--- NOTE | 2020-03-15 11:23 | NUR ---
Assistant AuditorConcert Manager SI: Respiratory Failure, COVID PNA T 96.4, HR 85, RR 20, BP 129/96 BIPAP 20/10, FiO2 100% O2 sat 93% WBC 11.6, BUN 25 IS: Bactrim IV q 8 hrs Lovenox SQ q 12 h solu-medrol IVP q h hrs TPN 85ml/hr q 24 h Step Down Status
[2020-03-15 12:00] VITALS: BP 151/97
--- NOTE | 2020-03-15 12:03 | NUR ---
NURSE NOTES: Md fry made aware Pt refused PO meds this morning.
--- NOTE | 2020-03-15 12:22 | Nephrology Progress Note ---
Assessment/Plan Problem List: (1) Dehydration (2) Electrolyte imbalance (3) COVID-19 virus infection (4) Pneumonia (5) DMII (diabetes mellitus, type 2) (6) Protein malnutrition Assessment Azotemia, hypernatremia Hypoalbuminemia Staff Otilia bacteremia COVID-19 isolation, pneumonia, bilateral infiltrate Hypertension Diabetes mellitus History of smoking Plan March 15: Remains on TPN. Labs reviewed. Discussed with pharmacist. Cont inue per current management. March 14: Remains on TPN. Labs reviewed, stable. Vitamin D level low, replacement ordered. Continue to monitor electrolytes and renal parameters. March 13: Patient remains on TPN. Discussed with pharmacist. TPN's sodium content adjusted. Labs reviewed. Continue to monitor electrolytes. Blood pressure remains stable. Continue per consultants. March 12: Patient on TPN. Labs reviewed. CPK remains elevated. Abnormal electrolytes and high blood sugar discussed with pharmacist and TPN adjusted. Continue to monitor labs. Oral Protonix added. Ibuprofen discontinued. Can continue to monitor electrolytes and chemistries. Levemir for high blood sugar added. March 11: Patient on TPN. Labs as of 11:15 AM is still pending. Continue per current treatment plan. Will check labs and adjust TPN as needed. Continue per consultants. March 10: Patient on TPN. Labs reviewed. Electrolytes overall stable. CPK is elevated. Will monitor electrolyte, CPK level, lipid panel. Continue per consultants. Discussed with pharmacist. Discussed with RN. Nutritional evaluation noted. Previously: D5W 100 cc an hour Monitor electrolytes renal parameters TPN and Intralipid ordered Will follow Continue per consultants Dietary consult requested Subjective ROS Limited/Unobtainable: Yes Objective Objective Last 24 Hour Vital Signs Date Time Temp Pulse Resp B/P (MAP) Pulse Ox O2 Delivery O2 Flow Rate FiO2 03/15/20 12:00 Bi-pap 100.0 Bi-pap 03/15/20 12:00 100 03/15/20 12:00 97.5 76 20 151/97 (115) 93 03/15/20 10:33 82 18 94 100 03/15/20 08:00 96.4 85 20 129/96 (107) 93 03/15/20 08:00 100 03/15/20 08:00 84 03/15/20 08:00 Bi-pap 100.0 Bi-pap 03/15/20 07:10 93 16 95 100 1/13/21 04:00 88 03/15/20 04:00 100 03/15/20 04:00 98.1 92 21 150/90 (110) 93 03/15/20 04:00 Bi-pap 100.0 Bi-pap 03/15/20 03:17 92 16 93 100 03/15/20 00:00 85 03/15/20 00:00 97.9 83 22 145/85 (105) 94 03/15/20 00:00 Bi-pap 100.0 Bi-pap 03/15/20 00:00 100 03/14/20 23:14 92 15 96 100 03/14/20 20:00 98.0 87 24 156/69 (98) 90 03/14/20 20:00 85 03/14/20 19:42 Bi-pap 100.0 Bi-pap 03/14/20 19:42 100 03/14/20 19:05 84 21 92 100 03/14/20 16:00 Bi-pap 100.0 Bi-pap 03/14/20 16:00 100 03/14/20 16:00 98.1 95 23 140/80 (100) 90 03/14/20 16:00 90 03/14/20 13:33 86 23 90 100 Intake and Output 03/14/20 03/15/20 19:00 07:00 Intake Total 0 ml 0 ml Output Total 800 ml 1100 ml Balance -800 ml -1100 ml Intake Oral 0 ml 0 ml Output Urine Total 800 ml 1100 ml Current Medications Medications (Trade) Dose Ordered Sig/Dennis Route PRN Reason Start Time Stop Time Status Last Admin Dose Admin Acetaminophen (Tylenol) 650 mg Q4H PRN ORAL Mild Pain (Pain Scale 1-3) 03/09/20 12:00 04/08/20 11:59 Bisacodyl (Dulcolax) 10 mg HSPRN PRN RECTAL Constipation 02/05/20 13:15 05/05/20 13:14 Chlorhexidine Gluconate (Marlen-Hex 2%) 1 applic DAILY@1999 TOPIC 02/14/20 20:00 05/14/20 19:59 03/14/20 20:08 Clonidine HCl (Catapres TTS-1) 1 patch QWEEK TDERMAL 03/09/20 21:00 06/07/20 20:59 03/09/20 21:00 Dextrose 1,000 ml @ 0 mls/hr Q24H PRN IV PN interrupted or unavailable 03/09/20 20:00 04/08/20 19:59 Dextrose (Dextrose 50%) 25 ml Q30M PRN IV Hypoglycemia 03/10/20 00:00 06/08/20 00:00 Dextrose (Dextrose 50%) 50 ml Q30M PRN IV Hypoglycemia 03/10/20 00:00 06/08/20 00:00 Enoxaparin Sodium (Lovenox) 40 mg DAILY SUBQ 03/13/20 12:00 06/11/20 11:59 03/15/20 09:26 Ergocalciferol (Drisdol) 50,000 intlu QWEEK ORAL 03/14/20 11:30 04/13/20 11:29 03/14/20 11:42 Fat Emulsion Intravenous 216 ml/Amino Acids/ Electrolytes/ Dextrose 2,016 ml @ 84 mls/hr Q24H IV 03/13/20 20:00 03/15/20 19:59 03/14/20 20:07 Fat Emulsion Intravenous 216 ml/Amino Acids/ Electrolytes/ Dextrose 2,016 ml @ 84 mls/hr Q24H IV 03/15/20 20:00 04/14/20 19:59 Hydralazine HCl (Apresoline) 10 mg Q6H PRN IV For High Blood Pressure 03/09/20 17:00 06/07/20 16:59 03/12/20 16:54 Insulin Aspart (NovoLOG) Q6HR SUBQ 03/10/20 00:00 06/08/20 00:00 03/15/20 11:52 Insulin Detemir (Levemir) 18 units Q12HR SUBQ 03/14/20 21:00 06/10/20 20:59 03/15/20 09:26 Lactulose (Cephulac) 20 gm THREE TIMES A DAY ORAL 03/08/20 13:00 04/07/20 12:59 03/14/20 17:25 Methylprednisolone Sodium Succinate (Solu-MEDROL) 40 mg EVERY 8 HOURS IVP 03/07/20 18:58 06/05/20 18:57 03/15/20 05:27 Pantoprazole (Protonix) 40 mg EVERY 12 HOURS IVP 03/12/20 21:00 04/11/20 20:59 03/15/20 09:17 Polyethylene Glycol (Miralax) 17 gm BEDTIME ORAL 03/08/20 21:00 04/07/20 20:59 03/10/20 20:33 Promethazine HCl/ Codeine (Phenergan with Codeine) 5 ml Q4H PRN ORAL For Cough 02/22/20 12:15 03/23/20 12:14 03/12/20 09:00 Trimethoprim/ Sulfamethoxazole 20 ml/Dextrose 570 ml @ 380 mls/hr [id number] BACTRIM IV 03/14/20 00:00 03/21/20 00:00 03/15/20 09:17 Vitamin D (Vitamin D) 5,000 unit DAILY ORAL 03/15/20 09:00 04/14/20 08:59 Laboratory Tests 03/14/20 23:28: POC Whole Blood Glucose 235H 03/15/20 05:10: White Blood Count 11.6H, Red Blood Count 4.43L, Hemoglobin 13.9L, Hematocrit 43.4, Mean Corpuscular Volume 98#, Mean Corpuscular Hemoglobin 31.4H, Mean Corpuscular Hemoglobin Concent 32.1, Red Cell Distribution Width 15.2H, Platelet Count 165, Mean Platelet Volume 9.2, Neutrophils (%) (Auto) , Lymphocytes (%) (Auto) , Monocytes (%) (Auto) , Eosinophils (%) (Auto) , Basophils (%) (Auto) , Differential Total Cells Counted 100, Neutrophils % (Manual) 95H, Lymphocytes % (Manual) 2L, Monocytes % (Manual) 3, Eosinophils % (Manual) 0, Basophils % (Manual) 0, Band Neutrophils 0, Platelet Estimate Adequate, Platelet Morphology Normal, Anisocytosis 1+ 03/15/20 05:16: POC Whole Blood Glucose 262H 03/15/20 08:07: Sodium Level 134L, Potassium Level 5.2H, Chloride Level 99, Carbon Dioxide Level 31, Anion Gap 4L, Blood Urea Nitrogen 25H, Creatinine 0.9, Estimat Glomerular Filtration Rate > 60, Glucose Level 222H, Uric Acid 1.6L, Calcium Level 8.5, Phosphorus Level 3.3, Magnesium Level 2.0, Total Bilirubin 1.3H, Direct Bilirubin 0.8H, Aspartate Amino Transf (AST/SGOT) 66H, Alanine Aminotransferase (ALT/SGPT) 168H, Alkaline Phosphatase 160H, C-Reactive Protein, Quantitative 1.3H, Total Protein 6.4, Albumin 2.4L, Globulin 4.0, Albumin/Globulin Ratio 0.6L 03/15/20 09:16: POC Whole Blood Glucose 230H 03/15/20 11:49: POC Whole Blood Glucose 310H Height (Feet): 5 Height (Inches): 10.00 Weight (Pounds): 240 General Appearance: no apparent distress EENT: other - On BiPAP Cardiovascular: tachycardia Respiratory/Chest: decreased breath sounds Abdomen: distended Rubin Cooper MD Mar 15, 2020 12:22
--- NOTE | 2020-03-15 14:43 | NUR ---
NURSE NOTES: Tried to do oral care w/ Pt per Pt request at this time. RT bedside. Pt saturating 93% when beginning, Pt desaturated to 72% within <10 seconds of begining oral care. Oral care stopped at this time and Bipap replaced. pt took awhile to come back up to 90% spo2. Pt appeared very anxious. Oral care to be continued at a later time.
[2020-03-15 16:00] VITALS: BP 131/98
--- NOTE | 2020-03-15 17:03 | Pulmonology Progress Note ---
Subjective ROS Limited/Unobtainable: Yes Interval Events: tolerating BiPAP; saturating better Constitutional: Reports: other - respiratory stable; Denies: fever HEENT: Repors: no symptoms Respiratory: Reports: dry cough, shortness of breath Cardiovascular: Reports: no symptoms Gastrointestinal/Abdominal: Denies: nausea, vomiting, diarrhea Psychiatric: Denies: depression Skin: Denies: rash Musculoskeletal: Denies: pain Allergies: Coded Allergies: No Known Allergies (Unverified , 02/05/20) Objective Last 24 Hour Vital Signs Date Time Temp Pulse Resp B/P (MAP) Pulse Ox O2 Delivery O2 Flow Rate FiO2 03/15/20 16:00 100 03/15/20 16:00 96.8 101 20 131/98 (109) 94 03/15/20 16:00 Bi-pap 100.0 Bi-pap 03/15/20 16:00 87 03/15/20 14:33 86 18 93 100 03/15/20 12:00 Bi-pap 100.0 Bi-pap 03/15/20 12:00 100 03/15/20 12:00 76 03/15/20 12:00 97.5 76 20 151/97 (115) 93 03/15/20 10:33 82 18 94 100 03/15/20 08:00 96.4 85 20 129/96 (107) 93 03/15/20 08:00 100 03/15/20 08:00 84 03/15/20 08:00 Bi-pap 100.0 Bi-pap 03/15/20 07:10 93 16 95 100 03/15/20 04:00 88 03/15/20 04:00 100 03/15/20 04:00 98.1 92 21 150/90 (110) 93 03/15/20 04:00 Bi-pap 100.0 Bi-pap 03/15/20 03:17 92 16 93 100 03/15/20 00:00 85 03/15/20 00:00 97.9 83 22 145/85 (105) 94 03/15/20 00:00 Bi-pap 100.0 Bi-pap 03/15/20 00:00 100 03/14/20 23:14 92 15 96 100 03/14/20 20:00 98.0 87 24 156/69 (98) 90 03/14/20 20:00 85 03/14/20 19:42 Bi-pap 100.0 Bi-pap 03/14/20 19:42 100 03/14/20 19:05 84 21 92 100 Intake and Output 03/14/20 03/15/20 19:00 07:00 Intake Total 0 ml 0 ml Output Total 800 ml 1100 ml Balance -800 ml -1100 ml Intake Oral 0 ml 0 ml Output Urine Total 800 ml 1100 ml General Appearance: WD/WN, no acute distress HEENT: normocephalic, atraumatic Respiratory: chest wall non-tender Cardiovascular: normal rate, regular rhythm Abdomen: normal bowel sounds, soft, non tender, other - obese Laboratory Tests 03/14/20 23:28: POC Whole Blood Glucose 235H 03/15/20 05:10: White Blood Count 11.6H, Red Blood Count 4.43L, Hemoglobin 13.9L, Hematocrit 43.4, Mean Corpuscular Volume 98#, Mean Corpuscular Hemoglobin 31.4H, Mean Corpuscular Hemoglobin Concent 32.1, Red Cell Distribution Width 15.2H, Platelet Count 165, Mean Platelet Volume 9.2, Neutrophils (%) (Auto) , Lymphocytes (%) (Auto) , Monocytes (%) (Auto) , Eosinophils (%) (Auto) , Basophils (%) (Auto) , Differential Total Cells Counted 100, Neutrophils % (Manual) 95H, Lymphocytes % (Manual) 2L, Monocytes % (Manual) 3, Eosinophils % (Manual) 0, Basophils % (Manual) 0, Band Neutrophils 0, Platelet Estimate Adequate, Platelet Morphology Normal, Anisocytosis 1+ 03/15/20 05:16: POC Whole Blood Glucose 262H 03/15/20 08:07: Sodium Level 134L, Potassium Level 5.2H, Chloride Level 99, Carbon Dioxide Level 31, Anion Gap 4L, Blood Urea Nitrogen 25H, Creatinine 0.9, Estimat Glomerular Filtration Rate > 60, Glucose Level 222H, Uric Acid 1.6L, Calcium Level 8.5, Phosphorus Level 3.3, Magnesium Level 2.0, Total Bilirubin 1.3H, Direct Bilirubin 0.8H, Aspartate Amino Transf (AST/SGOT) 66H, Alanine Aminotransferase (ALT/SGPT) 168H, Alkaline Phosphatase 160H, C-Reactive Protein, Quantitative 1.3H, Total Protein 6.4, Albumin 2.4L, Globulin 4.0, Albumin/Globulin Ratio 0.6L 03/15/20 09:16: POC Whole Blood Glucose 230H 03/15/20 11:49: POC Whole Blood Glucose 310H Current Medications Medications (Trade) Dose Ordered Sig/Dennis Route PRN Reason Start Time Stop Time Status Last Admin Dose Admin Acetaminophen (Tylenol) 650 mg Q4H PRN ORAL Mild Pain (Pain Scale 1-3) 03/09/20 12:00 04/08/20 11:59 Bisacodyl (Dulcolax) 10 mg HSPRN PRN RECTAL Constipation 02/05/20 13:15 05/05/20 13:14 Chlorhexidine Gluconate (Marlen-Hex 2%) 1 applic DAILY@2000 TOPIC 02/14/20 20:00 05/14/20 19:59 03/14/20 20:08 Clonidine HCl (Catapres TTS-1) 1 patch QWEEK TDERMAL 03/09/20 21:00 06/07/20 20:59 03/09/20 21:00 Dextrose 1,000 ml @ 0 mls/hr Q24H PRN IV PN interrupted or unavailable 03/09/20 20:00 04/08/20 19:59 Dextrose (Dextrose 50%) 25 ml Q30M PRN IV Hypoglycemia 03/10/20 00:00 06/08/20 00:00 Dextrose (Dextrose 50%) 50 ml Q30M PRN IV Hypoglycemia 03/10/20 00:00 06/08/20 00:00 Enoxaparin Sodium (Lovenox) 40 mg DAILY SUBQ 03/13/20 12:00 06/11/20 11:59 03/15/20 09:26 Fat Emulsion Intravenous 216 ml/Amino Acids/ Electrolytes/ Dextrose 2,016 ml @ 84 mls/hr Q24H IV 03/13/20 20:00 03/15/20 19:59 03/14/20 20:07 Fat Emulsion Intravenous 216 ml/Amino Acids/ Electrolytes/ Dextrose 2,016 ml @ 84 mls/hr Q24H IV 03/15/20 20:00 04/14/20 19:59 Hydralazine HCl (Apresoline) 10 mg Q6H PRN IV For High Blood Pressure 03/09/20 17:00 06/07/20 16:59 03/12/20 16:54 Insulin Aspart (NovoLOG) Q6HR SUBQ 03/10/20 00:00 06/08/20 00:00 03/15/20 11:52 Insulin Detemir (Levemir) 18 units Q12HR SUBQ 03/14/20 21:00 06/10/20 20:59 03/15/20 09:26 Lactulose (Cephulac) 20 gm THREE TIMES A DAY ORAL 03/08/20 13:00 04/07/20 12:59 03/14/20 17:25 Methylprednisolone Sodium Succinate (Solu-MEDROL) 40 mg EVERY 8 HOURS IVP 03/07/20 18:58 06/05/20 18:57 03/15/20 14:14 Pantoprazole (Protonix) 40 mg EVERY 12 HOURS IVP 03/12/20 21:00 04/11/20 20:59 03/15/20 09:17 Polyethylene Glycol (Miralax) 17 gm BEDTIME ORAL 03/08/20 21:00 04/07/20 20:59 03/10/20 20:33 Promethazine HCl/ Codeine (Phenergan with Codeine) 5 ml Q4H PRN ORAL For Cough 02/22/20 12:15 03/23/20 12:14 03/12/20 09:00 Trimethoprim/ Sulfamethoxazole 20 ml/Dextrose 570 ml @ 380 mls/hr [id number] BACTRIM IV 03/14/20 00:00 03/21/20 00:00 03/15/20 16:02 Vitamin D (Vitamin D) 5,000 unit DAILY ORAL 03/15/20 09:00 04/14/20 08:59 Assessment/Plan Assessment/Plan 1.COVID-19 pneumonia. - last COVID-19 test positive after two negative tests - CTA 02/05/2020 ground-glass and consolidating infiltrates in the dependent portions of both lower lobes and to lesser degree the upper lobes consistent with bilateral pneumonia. No evidence of pulmonary embolus. - CXR 02/17/2020 worsening bilateral infiltrates; Repeat CXR shows basilar linear densities - CT chest 02/18 shows Increased extensive patchy ground-glass opacities and densities throughout the lungs, suggestive of Covid 19 infection. - currently on BiPAP. Saturations 90%. - Mycoplasma pneumoniae IgG 273; M. pneumoniae IgM titer within normal limits - D-dimer 0.90; on full dose Lovenox -Discontinued Decadron, now on Solumedrol - s/p remdesivir - is now net I/O negative -We will continue TPN He has had a progressive increase in LDH,-started on Bactrim due to concern about pneumocystis. - Looking unchanged today. 2. Initial negative rapid COVID-19 gene assay.- however repeat COVID-19 test positive 3. Smoker. 4. DVT ppx - on lovenox 5. Hypertension - on hydralazine, and norvasc - On cardiac diet 6. Blood culture positive for gram positive cocci staph aureus - on Abx - CT abd/pelvis showed no abscess per ID - TTE/ FERNY held off due to COVID-19 status - PICC line in place (Patient was seen earlier today. Signature timestamp does not reflect patient encounter time) John Mata MD . John Mata MD Mar 15, 2020 17:03
--- NOTE | 2020-03-15 17:21 | NUR ---
NURSE HAND-OFF REPORT: Important Events on Shift: desat w/ oral care Patient Status: fc, stable Diet: TPN at 84cc Pending Orders: Pending Results/Labs: chest xray, us abd Pending MD notification: Latest Vital Signs: Temperature 96.8 , Pulse 101 , B/P 131 /98 , Respiratory Rate 20 , O2 SAT 94 , Room Air, O2 Flow Rate 100.0 . Vital Sign Comment: EKG Rhythm: Sinus Rhythm Rhythm change?: N MD Notified?: Courtney Paige MD Response: Message left await call Latest Hassan Fall Score: 45 Fall Risk: High Risk Safety Measures: Call light Within Reach, Bed Alarm Zone 1, Side Rails Side Rails x2, Bed position Low and Locked. Fall Precautions: Yellow Socks Yellow Gown Door Sign Patient Fall Education Report to be given. Addendum: 03/15/20 at 1902 by Nadja Castellano RN RN Pt is stable. Report given to PRIYANKA perez.
--- NOTE | 2020-03-15 17:23 | Infectious Diseases Prog Note ---
Assessment/Plan Assessment/Plan ASSESSMENT AND PLAN: 1. staph aureus bacteremia/mssa, ? source, ? endocarditis, sepsis, leukocytosis, ? CAP, PJP less likely with HIV negative and steroids < 1 month covid-19 +, hypoxia, sob, chest x-ray worse, ? PE, ? HCAP/aspiration pna recurrent fevers - ? fungal, ? OI leukocytosis noted - ? new infection, ? steroids cocci serology negative, legionella negative, beta 1,3 D-glucan wnl, Il-16 - 13.7 elevated LFT's - ? TPN, ? Bactrim - bactrim for empiric pneumocystis pna treatment -day # 7 - day # 34 mssa tx post neg blood cultures - will be covered by bactrim also - saturations improved, on solumedrol - monitor hypoxia, labs and chest x-ray - Abdominal US ordered for elevated LFT's, hepatitis panel also ordered - CT imaging noted - leukocytosis noted and likely secondary to steroids, cultures negative, fevers better - TPN - bacillus species blood cultures likely contaminant, f/u blood cultures negative 2. covid-19 isolation 3. Hypertension history. Blood pressure treatment primary care team. 4. Elevated blood sugars. Blood sugar treatment per primary care team. 5. No known drug allergies. 6. Social history is positive for smoking. 7. Family history is noncontributory. 8. MAR was noted. 9. Case was discussed with RN. 10. Continue treatment per primary consultants. Subjective Constitutional: Reports: fatigue, other - on bipap, sats stable, on TPN; Denies: fever HEENT: Reports: congestion Respiratory: Reports: shortness of breath Cardiovascular: Reports: chest pain Gastrointestinal/Abdominal: Denies: nausea, vomiting, diarrhea, constipation Neurologic: Denies: headache Psychiatric: Denies: depression Skin: Denies: rash Hematologic: Denies: bleeding Musculoskeletal: Denies: pain Allergies: Coded Allergies: No Known Allergies (Unverified , 02/05/20) Objective Last 24 Hour Vital Signs Date Time Temp Pulse Resp B/P (MAP) Pulse Ox O2 Delivery O2 Flow Rate FiO2 03/15/20 16:00 100 03/15/20 16:00 96.8 101 20 131/98 (109) 94 03/15/20 16:00 Bi-pap 100.0 Bi-pap 03/15/20 16:00 87 03/15/20 14:33 86 18 93 100 03/15/20 12:00 Bi-pap 100.0 Bi-pap 03/15/20 12:00 100 03/15/20 12:00 76 03/15/20 12:00 97.5 76 20 151/97 (115) 93 03/15/20 10:33 82 18 94 100 03/15/20 08:00 96.4 85 20 129/96 (107) 93 03/15/20 08:00 100 03/15/20 08:00 84 03/15/20 08:00 Bi-pap 100.0 Bi-pap 03/15/20 07:10 93 16 95 100 03/15/20 04:00 88 03/15/20 04:00 100 03/15/20 04:00 98.1 92 21 150/90 (110) 93 03/15/20 04:00 Bi-pap 100.0 Bi-pap 03/15/20 03:17 92 16 93 100 03/15/20 00:00 85 03/15/20 00:00 97.9 83 22 145/85 (105) 94 03/15/20 00:00 Bi-pap 100.0 Bi-pap 03/15/20 00:00 100 03/14/20 23:14 92 15 96 100 03/14/20 20:00 98.0 87 24 156/69 (98) 90 03/14/20 20:00 85 03/14/20 19:42 Bi-pap 100.0 Bi-pap 03/14/20 19:42 100 03/14/20 19:05 84 21 92 100 Height (Feet): 5 Height (Inches): 10.00 Weight (Pounds): 240 General Appearance: no acute distress HEENT: normocephalic, atraumatic, anicteric Respiratory/Chest: crackles/rales, rhonchi - bilaterally Cardiovascular: normal rate, regular rhythm, no gallop/murmur Abdomen: normal bowel sounds, soft, non tender, no organomegaly, non distended Genitourinary: other - no joseph Extremities: no cyanosis Skin: no rash 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 The infiltrates are typical for Covid 19. No evidence of pulmonary embolus. CT abdomen and pelvis: IMPRESSION: 1. Scattered hepatic hypodense lesions, too small to characterize on this examination without intravenous contrast. 2. Colonic diverticulosis without evidence of acute diverticulitis. 3. Scattered enlarged mesenteric lymph nodes, presumably reactive. teral pneumonia. The infiltrates are typical for Covid 19. No evidence of pulmonary embolus. Chest x-ray - 12/19/19 - Indication: Shortness of breath Technique: One view of the chest Comparison: 02/17/2020 Findings: Interim worsening of bilateral infiltrates, particularly on the right. The heart is borderline enlarged. The pleural spaces are clear. Left arm PICC is again demonstrated Impression: Worsening bilateral infiltrates over one day, likely pneumonia CT chest - 02/19/20 - IMPRESSION: Increased extensive patchy ground-glass opacities and densities throughout the lungs, suggestive of Covid 19 infection. Chest x-ray 02/23/20 - Procedure: XRAY Chest 1v As Indication: Reason For Exam: INFECT Technique: One view of the chest Comparison: 02/20/2020 Findings: Allowing for differences in exposure technique, bilateral mid and lower lung infiltrates are probably unchanged. The heart size is normal. The pleural spaces are clear. Impression: Unchanged, over 4 days, findings as above. Chest x-ray - 02/25/20 - FINDINGS: Lungs: Interval slightly worsening bilateral airspace disease. Pleural space: Unremarkable. No pneumothorax. Heart: Unremarkable. No cardiomegaly. Mediastinum: Unremarkable. Bones/joints: Unremarkable. IMPRESSION: Interval slightly worsening bilateral airspace disease. Chest x-ray - 03/02/20 - Procedure: XRAY Chest 1v Indication: Shortness of breath Technique: One view of the chest Comparison: 02/25/2020 Findings: Bilateral interstitial and airspace infiltrates are unchanged. The heart size is normal. Left arm PICC is again demonstrated Impression: Unchanged, over one day, findings as above. Chest x-ray - 03/06/20 - Procedure: XRAY Chest 1v Indication: Shortness of breath Technique: One view of the chest Comparison: 03/02/2020 Findings: Bilateral infiltrates are unchanged. Normal heart size. Pleural spaces are clear Chest x-ray - 03/12/10 - Impression: COMPARISON: Chest radiograph March 06, 2020. FINDINGS/IMPRESSION: Improving basilar infiltrates. Follow chest radiograph recommended. The upper lung finley are clear. No pneumothorax. Stable cardiomegaly. Stable left upper extremity PICC line. anged, over 4 days, findings as above. Microbiology Date/Time Source Procedure Growth Status 03/12/20 05:30 Blood Blood Culture - Preliminary NO GROWTH AFTER 72 HOURS Resulted 02/17/20 19:00 Urine,Clean Catch Urine Culture - Final NO GROWTH AFTER 48 HOURS Complete 02/10/20 06:30 Nasopharynx SARS-CoV-2 RdRp Gene Assay - Final Complete Laboratory Tests Test 03/14/20 23:28 03/15/20 05:10 03/15/20 05:16 03/15/20 08:07 POC Whole Blood Glucose 235 MG/DL (74-106) H 262 MG/DL (74-106) H White Blood Count 11.6 K/UL (4.8-10.8) H Red Blood Count 4.43 M/UL (4.70-6.10) L Hemoglobin 13.9 G/DL (14.2-18.0) L Hematocrit 43.4 % (42.0-52.0) Mean Corpuscular Volume 98 FL (80-99) # Mean Corpuscular Hemoglobin 31.4 PG (27.0-31.0) H Mean Corpuscular Hemoglobin Concent 32.1 G/DL (32.0-36.0) Red Cell Distribution Width 15.2 % (11.6-14.8) H Platelet Count 165 K/UL (150-450) Mean Platelet Volume 9.2 FL (6.5-10.1) Neutrophils (%) (Auto) % (45.0-75.0) Lymphocytes (%) (Auto) % (20.0-45.0) Monocytes (%) (Auto) % (1.0-10.0) Eosinophils (%) (Auto) % (0.0-3.0) Basophils (%) (Auto) % (0.0-2.0) Differential Total Cells Counted 100 Neutrophils % (Manual) 95 % (45-75) H Lymphocytes % (Manual) 2 % (20-45) L Monocytes % (Manual) 3 % (1-10) Eosinophils % (Manual) 0 % (0-3) Basophils % (Manual) 0 % (0-2) Band Neutrophils 0 % (0-8) Platelet Estimate Adequate Platelet Morphology Normal Anisocytosis 1+ Sodium Level 134 MMOL/L (136-145) L Potassium Level 5.2 MMOL/L (3.5-5.1) H Chloride Level 99 MMOL/L (98-107) Carbon Dioxide Level 31 MMOL/L (21-32) Anion Gap 4 mmol/L (5-15) L Blood Urea Nitrogen 25 mg/dL (7-18) H Creatinine 0.9 MG/DL (0.55-1.30) Estimat Glomerular Filtration Rate > 60 mL/min (>60) Glucose Level 222 MG/DL (74-106) H Uric Acid 1.6 MG/DL (2.6-7.2) L Calcium Level 8.5 MG/DL (8.5-10.1) Phosphorus Level 3.3 MG/DL (2.5-4.9) Magnesium Level 2.0 MG/DL (1.8-2.4) Total Bilirubin 1.3 MG/DL (0.2-1.0) H Direct Bilirubin 0.8 MG/DL (0.0-0.3) H Aspartate Amino Transf (AST/SGOT) 66 U/L (15-37) H Alanine Aminotransferase (ALT/SGPT) 168 U/L (12-78) H Alkaline Phosphatase 160 U/L (46-116) H C-Reactive Protein, Quantitative 1.3 mg/dL (0.00-0.90) H Total Protein 6.4 G/DL (6.4-8.2) Albumin 2.4 G/DL (3.4-5.0) L Globulin 4.0 g/dL Albumin/Globulin Ratio 0.6 (1.0-2.7) L Test 03/15/20 09:16 03/15/20 11:49 POC Whole Blood Glucose 230 MG/DL (74-106) H 310 MG/DL (74-106) H Current Medications Medications (Trade) Dose Ordered Sig/Dennis Route PRN Reason Start Time Stop Time Status Last Admin Dose Admin Acetaminophen (Tylenol) 650 mg Q4H PRN ORAL Mild Pain (Pain Scale 1-3) 03/09/20 12:00 04/08/20 11:59 Bisacodyl (Dulcolax) 10 mg HSPRN PRN RECTAL Constipation 02/05/20 13:15 05/05/20 13:14 Chlorhexidine Gluconate (Marlen-Hex 2%) 1 applic DAILY@2000 TOPIC 02/14/20 20:00 05/14/20 19:59 03/14/20 20:08 Clonidine HCl (Catapres TTS-1) 1 patch QWEEK TDERMAL 03/09/20 21:00 06/07/20 20:59 03/09/20 21:00 Dextrose 1,000 ml @ 0 mls/hr Q24H PRN IV PN interrupted or unavailable 03/09/20 20:00 04/08/20 19:59 Dextrose (Dextrose 50%) 25 ml Q30M PRN IV Hypoglycemia 03/10/20 00:00 06/08/20 00:00 Dextrose (Dextrose 50%) 50 ml Q30M PRN IV Hypoglycemia 03/10/20 00:00 06/08/20 00:00 Enoxaparin Sodium (Lovenox) 40 mg DAILY SUBQ 03/13/20 12:00 06/11/20 11:59 03/15/20 09:26 Fat Emulsion Intravenous 216 ml/Amino Acids/ Electrolytes/ Dextrose 2,016 ml @ 84 mls/hr Q24H IV 03/13/20 20:00 03/15/20 19:59 03/14/20 20:07 Fat Emulsion Intravenous 216 ml/Amino Acids/ Electrolytes/ Dextrose 2,016 ml @ 84 mls/hr Q24H IV 03/15/20 20:00 04/14/20 19:59 Hydralazine HCl (Apresoline) 10 mg Q6H PRN IV For High Blood Pressure 03/09/20 17:00 06/07/20 16:59 03/12/20 16:54 Insulin Aspart (NovoLOG) Q6HR SUBQ 03/10/20 00:00 06/08/20 00:00 03/15/20 11:52 Insulin Detemir (Levemir) 18 units Q12HR SUBQ 03/14/20 21:00 06/10/20 20:59 03/15/20 09:26 Lactulose (Cephulac) 20 gm THREE TIMES A DAY ORAL 03/08/20 13:00 04/07/20 12:59 03/14/20 17:25 Methylprednisolone Sodium Succinate (Solu-MEDROL) 40 mg EVERY 8 HOURS IVP 03/07/20 18:58 06/05/20 18:57 03/15/20 14:14 Pantoprazole (Protonix) 40 mg EVERY 12 HOURS IVP 03/12/20 21:00 04/11/20 20:59 03/15/20 09:17 Polyethylene Glycol (Miralax) 17 gm BEDTIME ORAL 03/08/20 21:00 04/07/20 20:59 03/10/20 20:33 Promethazine HCl/ Codeine (Phenergan with Codeine) 5 ml Q4H PRN ORAL For Cough 02/22/20 12:15 03/23/20 12:14 03/12/20 09:00 Trimethoprim/ Sulfamethoxazole 20 ml/Dextrose 570 ml @ 380 mls/hr [id number] BACTRIM IV 03/14/20 00:00 03/21/20 00:00 03/15/20 16:02 Vitamin D (Vitamin D) 5,000 unit DAILY ORAL 03/15/20 09:00 04/14/20 08:59 Kisha Salazar MD Mar 15, 2020 17:23
--- NOTE | 2020-03-15 18:18 | Diagnostic Imaging Report ---
EXAM: US Abdomen Complete CLINICAL HISTORY: GB TECHNIQUE: Real-time ultrasound of the abdomen with image documentation. COMPARISON: CT abdomen and pelvis, 02/09/2020. FINDINGS: Liver: Enlarged liver measuring 17.7 cm. Increased echogenicity of the liver. No intrahepatic bile duct dilation. Gallbladder: Unremarkable. No gallstones. No gallbladder wall thickening. Common bile duct: Common bile duct measures 6 mm. No stones. No dilation. Pancreas: Unremarkable as visualized. Kidneys: Right kidney measures 11.8 cm. Left kidney measures 12.1 cm. No stones. No hydronephrosis. Spleen: Spleen measures 11.1 cm. Aorta: Unremarkable. No aneurysm. Inferior vena cava: Unremarkable. IMPRESSION: 1. Gallbladder is normal. 2. Hepatic steatosis. 3. 1.7 cm cyst right kidney. Impression.
--- NOTE | 2020-03-15 19:28 | NUR ---
NURSE NOTES: Received report from PRIYANKA Saez. Pt is awake, A/Ox4, no signs of distress noted. No complaints of pain. cardiac monitor shows SR. Pt is on BiPAP, 20/10 100% FiO2 saturating 91%, RR 24. L UA PICC 2x asymptomatic and flushing well, running TPN at 84ml/hr. Condom cath draining well to gravity with yellow urine. Fall and aspiration risk noted and reinforced. Will continue to monitor. Will continue plan of care.
[2020-03-15 20:00] VITALS: BP 134/84
[2020-03-15] MEDS: Miralax 17gm pkt ORAL SCH (20:17)
[2020-03-15] MEDS: Dyna-Hex 2% Top Sol 2oz TOPIC SCH (20:17)
[2020-03-15] MEDS: FAT EMULSION 20% IV SCH (20:18)
[2020-03-15] MEDS: TPN IV SCH (20:18)
--- NOTE | 2020-03-15 20:33 | NUR ---
NURSE NOTES: Gave PM meds and started a new bag of TPN. Pt is fatigued, O2 saturation 95%. Will continue to monitor.
[2020-03-16] VITALS: BP 149/92
--- NOTE | 2020-03-16 03:10 | NUR ---
NURSE NOTES: Received permission from pt to clean him. Pt started to have a coughing fit 2 minutes into cleaning, desaturated to 68%. Pt requested to be cleaned at a later time. Condom cath was removed, will put back on at a later time.
[2020-03-16 04:00] VITALS: BP 145/82
--- NOTE | 2020-03-16 04:05 | NUR ---
NURSE NOTES: Asked pt if he wants to be cleaned. Pt refused, but allowed the RN to put on condom cath. Asked pt if he wanted oral, pt refused. Will attempt again at a later time/
[2020-03-16] MEDS: Solu-MEDROL 40mg Inj IVP SCH ×3 (05:39→21:44)
[2020-03-16] MEDS: NovoLOG Insulin Flexpen SUBQ SCH ×4 (05:48→23:19)
--- NOTE | 2020-03-16 05:50 | NUR ---
NURSE NOTES: Gave 0600 meds and insulin sliding scale per protocol. Asked pt permission to clean him, educated him on the risks of sitting in own urine when pt has open wounds. Still refused to be cleaned. Will endorse to morning RN. Will continue to monitor.
[2020-03-16 05:58] LABS: HEMATOCRIT 44.3 % (42.0-52.0); HEMOGLOBIN 14.4 G/DL (14.2-18.0); MEAN CORPUSCULAR VOLUME 87 FL (80-99); PLATELET COUNT 242 K/UL (150-450); WHITE BLOOD COUNT 16.3 K/UL (4.8-10.8)
[2020-03-16 06:30] LABS: ALANINE AMINOTRANSFERASE 212 U/L (12-78); ALBUMIN 2.5 G/DL (3.4-5.0); ALBUMIN/GLOBULIN RATIO 0.6 (1.0-2.7); ALKALINE PHOSPHATASE 167 U/L (46-116); ANION GAP 6 mmol/L (5-15); ASPARTATE AMINO TRANSFERASE 83 U/L (15-37); BILIRUBIN,TOTAL 1.5 MG/DL (0.2-1.0); BLOOD UREA NITROGEN 25 mg/dL (7-18); CALCIUM 8.4 MG/DL (8.5-10.1); CARBON DIOXIDE 30 MMOL/L (21-32); CHLORIDE 96 MMOL/L (98-107); CREATININE 0.9 MG/DL (0.55-1.30); POTASSIUM 4.3 MMOL/L (3.5-5.1); SODIUM 131 MMOL/L (136-145)
[2020-03-16 06:38] LABS: BILIRUBIN,DIRECT 0.9 MG/DL (0.0-0.3)
[2020-03-16 06:54] LABS: PHOSPHORUS 3.2 MG/DL (2.5-4.9)
--- NOTE | 2020-03-16 07:06 | NUR ---
NURSE HAND-OFF REPORT: Important Events on Shift:[Refused to be cleaned, desaturated to 68% while coughing] Patient Status: [Poor] Diet: [TPN] Pending Orders: [NA] Pending Results/Labs:[NA] Pending MD notification:[NA] Latest Vital Signs: Temperature 97.5 , Pulse 81 , B/P 145 /82 , Respiratory Rate 18 , O2 SAT 95 , Room Air, O2 Flow Rate 100.0 . Vital Sign Comment: [Stable] EKG Rhythm: Sinus Rhythm Rhythm change?: N MD Notified?: Y -Dr.Toluie INTERIANO Response: Message left await call Latest Hassan Fall Score: 45 Fall Risk: High Risk Safety Measures: Call light Within Reach, Bed Alarm Zone 1, Side Rails Side Rails x2, Bed position Low and Locked. Fall Precautions: Yellow Socks Yellow Gown Door Sign Patient Fall Education Report given to [PRIYANKA Saez].
--- NOTE | 2020-03-16 07:20 | NUR ---
NURSE NOTES: Pt found with no gown on and on urine soaked bed. Previous RN, Cha said Pt refused to be changed. Asked Pt if I could give him gown or change him at this time. Pt refused shaking head side to side and doing "X" motion with arms. Will reasses. Also told Pt to call if he changed his mind. call light in R arm.
--- NOTE | 2020-03-16 07:27 | NUR ---
NURSE NOTES: Received report from PRIYANKA Eubanks. Pt is AOx4, stable and resting in bed. Pt is fatigued and sleeping. Pt has no s/s or complaint of distress at this time. pt is on Bipap 20/10 fio2 100% saturating 92%spo2. Pt sacral stage 1 noted. WAYNE PICC double lumen. Pt bed low and locked, call light in reach and bed alarm on. pt verbalized understanding of call light.
[2020-03-16] MEDS: Pantoprazole Inj IVP SCH ×2 (07:58→20:24)
[2020-03-16 08:00] VITALS: BP 160/90
[2020-03-16] MEDS: Vitamin D 1000 units Tab ORAL SCH (08:00)
[2020-03-16] MEDS: Lactulose 20gm/30ml UDC ORAL SCH ×3 (08:00→16:59)
[2020-03-16] MEDS: Enoxaparin 40mg Inj SUBQ SCH (08:09)
[2020-03-16] MEDS: Levemir Flexpen SUBQ SCH ×2 (08:09→20:49)
[2020-03-16] MEDS: Bactrim 20ml in D5W 550ml IV SCH ×3 (08:36→23:10)
--- NOTE | 2020-03-16 08:47 | NUR ---
NURSE NOTES: Went in room to hang IV medication, found Pt off Bipap. BiPap reconnected. Pt education provided. SpO2 93%
--- NOTE | 2020-03-16 09:59 | NUR ---
NURSE NOTES: Updated YENI Wilkinson of Pt condition, anxiety. pt labs sodium 133, potassium 5.2. Fouladian on the case. No new orders from YENI Wilkinson at this time.
--- NOTE | 2020-03-16 10:25 | NUR ---
NURSE NOTES: Cleaned Pts mouth bedside with RT. Pts oral cavity dry on tongue and black around bottom teeth. oral moisturizer applied. Pt tolerated better today vs. yesterday. able to clean for 1-2 mins without immediately desaturating. BiPap straps secured and redajusted by RT. pt offered to be cleaned again, Pt agreed to be changed later w/ RT bedside.
--- NOTE | 2020-03-16 10:38 | NUR ---
INSURANCE CLINICALS FAXED TO [employer] (03/15-03/16) FX [phone]
--- NOTE | 2020-03-16 11:59 | General Progress Note ---
Subjective ROS Limited/Unobtainable: No Allergies: Coded Allergies: No Known Allergies (Unverified , 02/05/20) Objective Last 24 Hour Vital Signs Date Time Temp Pulse Resp B/P (MAP) Pulse Ox O2 Delivery O2 Flow Rate FiO2 03/16/20 11:00 89 24 92 100 03/16/20 08:00 100 03/16/20 08:00 Bi-pap 100.0 Bi-pap 03/16/20 08:00 97.7 98 32 160/90 (113) 93 03/16/20 08:00 97 03/16/20 06:45 84 21 94 100 03/16/20 04:00 97.5 81 18 145/82 (103) 95 03/16/20 04:00 67 03/16/20 04:00 100 03/16/20 04:00 Bi-pap 100.0 Bi-pap 03/16/20 04:00 100 03/16/20 04:00 Bi-pap 100.0 Bi-pap 03/16/20 03:30 82 20 95 100 03/16/20 00:00 97.0 91 24 149/92 (111) 94 03/15/20 23:55 77 03/15/20 23:55 100 03/15/20 23:55 Bi-pap 100.0 Bi-pap 03/15/20 23:30 88 28 93 100 03/15/20 20:00 86 03/15/20 20:00 100 03/15/20 20:00 Bi-pap 100.0 Bi-pap 03/15/20 20:00 97.7 84 24 134/84 (101) 92 03/15/20 19:30 84 24 94 100 03/15/20 16:00 100 03/15/20 16:00 96.8 101 20 131/98 (109) 94 03/15/20 16:00 Bi-pap 100.0 Bi-pap 03/15/20 16:00 87 03/15/20 14:33 86 18 93 100 03/15/20 12:00 Bi-pap 100.0 Bi-pap 03/15/20 12:00 100 03/15/20 12:00 76 03/15/20 12:00 97.5 76 20 151/97 (115) 93 Intake and Output 03/15/20 03/16/20 19:00 07:00 Intake Total 900 ml 1387.6 ml Output Total 1000 ml 500 ml Balance -100 ml 887.6 ml IV Total 1387.6 ml Other 900 ml Output Urine Total 1000 ml 500 ml Laboratory Tests 03/15/20 18:11: POC Whole Blood Glucose 268H 03/15/20 20:24: POC Whole Blood Glucose 213H 03/15/20 23:27: POC Whole Blood Glucose 231H 03/16/20 04:00: White Blood Count 16.3H, Red Blood Count 5.10, Hemoglobin 14.4, Hematocrit 44.3, Mean Corpuscular Volume 87#, Mean Corpuscular Hemoglobin 28.2, Mean Corpuscular Hemoglobin Concent 32.6, Red Cell Distribution Width 14.0, Platelet Count 242, Mean Platelet Volume 8.6, Neutrophils (%) (Auto) , Lymphocytes (%) (Auto) , Monocytes (%) (Auto) , Eosinophils (%) (Auto) , Basophils (%) (Auto) , Differential Total Cells Counted 100, Neutrophils % (Manual) 95H, Lymphocytes % (Manual) 3L, Monocytes % (Manual) 2, Eosinophils % (Manual) 0, Basophils % (Manual) 0, Band Neutrophils 0, Platelet Estimate Adequate, Platelet Morphology Normal, Red Blood Cell Morphology Normal, Sodium Level 131L, Potassium Level 4.3, Chloride Level 96L, Carbon Dioxide Level 30, Anion Gap 6, Blood Urea Nitrogen 25H, Creatinine 0.9, Estimat Glomerular Filtration Rate > 60, Glucose Level 202H, Calcium Level 8.4L, Phosphorus Level 3.2, Magnesium Level 1.9, Total Bilirubin 1.5H, Direct Bilirubin 0.9H, Aspartate Amino Transf (AST/SGOT) 83H, Alanine Aminotransferase (ALT/SGPT) 212H, Alkaline Phosphatase 167H, Total Protein 6.4, Albumin 2.5L, Globulin 3.9, Albumin/Globulin Ratio 0.6L 03/16/20 05:41: POC Whole Blood Glucose 203H 03/16/20 07:56: POC Whole Blood Glucose 186H Height (Feet): 5 Height (Inches): 10.00 Weight (Pounds): 240 General Appearance: no apparent distress EENT: normal ENT inspection Neck: supple Cardiovascular: normal rate Respiratory/Chest: decreased breath sounds Abdomen: normal bowel sounds, non tender, soft Extremities: non-tender Assessment/Plan Status: not improved, unchanged Assessment/Plan: covid + on BIPAP DM HTN FTT constipation not stable for PEG could not tolerate NGT placement TPN for now bowel regimen covid care rising LFTS>>> will monitor will Da Wilson MD Mar 16, 2020 11:59
[2020-03-16 12:00] VITALS: BP 140/95
--- NOTE | 2020-03-16 12:35 | Nephrology Progress Note ---
Assessment/Plan Problem List: (1) Dehydration (2) Electrolyte imbalance (3) COVID-19 virus infection (4) Pneumonia (5) DMII (diabetes mellitus, type 2) (6) Protein malnutrition Assessment Azotemia, hypernatremia Hypoalbuminemia Staff Otilia bacteremia COVID-19 isolation, pneumonia, bilateral infiltrate Hypertension Diabetes mellitus History of smoking Plan March 16: On TPN. Labs reviewed. Discussed with pharmacist. Appropriate changes made. Continue to monitor electrolytes. March 15: Remains on TPN. Labs reviewed. Discussed with pharmacist. Contin ue per current management. March 14: Remains on TPN. Labs reviewed, stable. Vitamin D level low, replacement ordered. Continue to monitor electrolytes and renal parameters. March 13: Patient remains on TPN. Discussed with pharmacist. TPN's sodium content adjusted. Labs reviewed. Continue to monitor electrolytes. Blood pressure remains stable. Continue per consultants. March 12: Patient on TPN. Labs reviewed. CPK remains elevated. Abnormal electrolytes and high blood sugar discussed with pharmacist and TPN adjusted. Continue to monitor labs. Oral Protonix added. Ibuprofen discontinued. Can continue to monitor electrolytes and chemistries. Levemir for high blood sugar added. March 11: Patient on TPN. Labs as of 11:15 AM is still pending. Continue per current treatment plan. Will check labs and adjust TPN as needed. Continue per consultants. March 10: Patient on TPN. Labs reviewed. Electrolytes overall stable. CPK is elevated. Will monitor electrolyte, CPK level, lipid panel. Continue per consultants. Discussed with pharmacist. Discussed with RN. Nutritional evaluation noted. Previously: D5W 100 cc an hour Monitor electrolytes renal parameters TPN and Intralipid ordered Will follow Continue per consultants Dietary consult requested Subjective ROS Limited/Unobtainable: No Constitutional: Reports: malaise Objective Objective Last 24 Hour Vital Signs Date Time Temp Pulse Resp B/P (MAP) Pulse Ox O2 Delivery O2 Flow Rate FiO2 03/16/20 12:00 81 03/16/20 12:00 100 03/16/20 12:00 97.5 97 30 140/95 (110) 95 03/16/20 12:00 Bi-pap 100.0 Bi-pap 03/16/20 11:00 89 24 92 100 03/16/20 08:00 100 03/16/20 08:00 Bi-pap 100.0 Bi-pap 03/16/20 08:00 97.7 98 32 160/90 (113) 93 03/16/20 08:00 97 03/16/20 06:45 84 21 94 100 03/16/20 04:00 97.5 81 18 145/82 (103) 95 03/16/20 04:00 67 03/16/20 04:00 100 03/16/20 04:00 Bi-pap 100.0 Bi-pap 03/16/20 04:00 100 03/16/20 04:00 Bi-pap 100.0 Bi-pap 03/16/20 03:30 82 20 95 100 03/16/20 00:00 97.0 91 24 149/92 (111) 94 03/15/20 23:55 77 03/15/20 23:55 100 03/15/20 23:55 Bi-pap 100.0 Bi-pap 03/15/20 23:30 88 28 93 100 03/15/20 20:00 86 03/15/20 20:00 100 03/15/20 20:00 Bi-pap 100.0 Bi-pap 03/15/20 20:00 97.7 84 24 134/84 (101) 92 03/15/20 19:30 84 24 94 100 03/15/20 16:00 100 03/15/20 16:00 96.8 101 20 131/98 (109) 94 03/15/20 16:00 Bi-pap 100.0 Bi-pap 03/15/20 16:00 87 03/15/20 14:33 86 18 93 100 Intake and Output 03/15/20 03/16/20 19:00 07:00 Intake Total 900 ml 1387.6 ml Output Total 1000 ml 500 ml Balance -100 ml 887.6 ml IV Total 1387.6 ml Other 900 ml Output Urine Total 1000 ml 500 ml Current Medications Medications (Trade) Dose Ordered Sig/Dennis Route PRN Reason Start Time Stop Time Status Last Admin Dose Admin Acetaminophen (Tylenol) 650 mg Q4H PRN ORAL Mild Pain (Pain Scale 1-3) 03/09/20 12:00 04/08/20 11:59 Bisacodyl (Dulcolax) 10 mg HSPRN PRN RECTAL Constipation 02/05/20 13:15 05/05/20 13:14 Chlorhexidine Gluconate (Marlen-Hex 2%) 1 applic DAILY@2000 TOPIC 02/14/20 20:00 05/14/20 19:59 03/15/20 20:17 Clonidine HCl (Catapres TTS-1) 1 patch QWEEK TDERMAL 03/09/20 21:00 06/07/20 20:59 03/09/20 21:00 Dextrose 1,000 ml @ 0 mls/hr Q24H PRN IV PN interrupted or unavailable 03/09/20 20:00 04/08/20 19:59 Dextrose (Dextrose 50%) 25 ml Q30M PRN IV Hypoglycemia 03/10/20 00:00 06/08/20 00:00 Dextrose (Dextrose 50%) 50 ml Q30M PRN IV Hypoglycemia 03/10/20 00:00 06/08/20 00:00 Enoxaparin Sodium (Lovenox) 40 mg DAILY SUBQ 03/13/20 12:00 06/11/20 11:59 03/16/20 08:09 Fat Emulsion Intravenous 216 ml/Amino Acids/ Electrolytes/ Dextrose 2,016 ml @ 84 mls/hr Q24H IV 03/15/20 20:00 04/14/20 19:59 03/15/20 20:18 Hydralazine HCl (Apresoline) 10 mg Q6H PRN IV For High Blood Pressure 03/09/20 17:00 06/07/20 16:59 03/12/20 16:54 Insulin Aspart (NovoLOG) Q6HR SUBQ 03/10/20 00:00 06/08/20 00:00 03/16/20 12:04 Insulin Detemir (Levemir) 18 units Q12HR SUBQ 03/14/20 21:00 06/10/20 20:59 03/16/20 08:09 Lactulose (Cephulac) 20 gm THREE TIMES A DAY ORAL 03/08/20 13:00 04/07/20 12:59 03/14/20 17:25 Methylprednisolone Sodium Succinate (Solu-MEDROL) 40 mg EVERY 8 HOURS IVP 03/07/20 18:58 06/05/20 18:57 03/16/20 05:39 Pantoprazole (Protonix) 40 mg EVERY 12 HOURS IVP 03/12/20 21:00 04/11/20 20:59 03/16/20 07:58 Polyethylene Glycol (Miralax) 17 gm BEDTIME ORAL 03/08/20 21:00 04/07/20 20:59 03/10/20 20:33 Promethazine HCl/ Codeine (Phenergan with Codeine) 5 ml Q4H PRN ORAL For Cough 02/22/20 12:15 03/23/20 12:14 03/12/20 09:00 Trimethoprim/ Sulfamethoxazole 20 ml/Dextrose 570 ml @ 380 mls/hr [id number] BACTRIM IV 03/14/20 00:00 03/21/20 00:00 03/16/20 08:36 Vitamin D (Vitamin D) 5,000 unit DAILY ORAL 03/15/20 09:00 04/14/20 08:59 Laboratory Tests 03/15/20 18:11: POC Whole Blood Glucose 268H 03/15/20 20:24: POC Whole Blood Glucose 213H 03/15/20 23:27: POC Whole Blood Glucose 231H 03/16/20 04:00: White Blood Count 16.3H, Red Blood Count 5.10, Hemoglobin 14.4, Hematocrit 44.3, Mean Corpuscular Volume 87#, Mean Corpuscular Hemoglobin 28.2, Mean Corpuscular Hemoglobin Concent 32.6, Red Cell Distribution Width 14.0, Platelet Count 242, Mean Platelet Volume 8.6, Neutrophils (%) (Auto) , Lymphocytes (%) (Auto) , Monocytes (%) (Auto) , Eosinophils (%) (Auto) , Basophils (%) (Auto) , Differential Total Cells Counted 100, Neutrophils % (Manual) 95H, Lymphocytes % (Manual) 3L, Monocytes % (Manual) 2, Eosinophils % (Manual) 0, Basophils % (Manual) 0, Band Neutrophils 0, Platelet Estimate Adequate, Platelet Morphology Normal, Red Blood Cell Morphology Normal, Sodium Level 131L, Potassium Level 4.3, Chloride Level 96L, Carbon Dioxide Level 30, Anion Gap 6, Blood Urea Nitrogen 25H, Creatinine 0.9, Estimat Glomerular Filtration Rate > 60, Glucose Level 202H, Calcium Level 8.4L, Phosphorus Level 3.2, Magnesium Level 1.9, Total Bilirubin 1.5H, Direct Bilirubin 0.9H, Aspartate Amino Transf (AST/SGOT) 83H, Alanine Aminotransferase (ALT/SGPT) 212H, Alkaline Phosphatase 167H, Total Protein 6.4, Albumin 2.5L, Globulin 3.9, Albumin/Globulin Ratio 0.6L 03/16/20 05:41: POC Whole Blood Glucose 203H 03/16/20 07:56: POC Whole Blood Glucose 186H 03/16/20 12:02: POC Whole Blood Glucose 268H Height (Feet): 5 Height (Inches): 10.00 Weight (Pounds): 240 General Appearance: no apparent distress EENT: other - On BiPAP Cardiovascular: tachycardia Respiratory/Chest: decreased breath sounds Abdomen: distended Rubin Cooper MD Mar 16, 2020 12:35
--- NOTE | 2020-03-16 12:41 | NUR ---
Commuter Train OperatorDirector Of Search Engine Marketing SI: Respiratory Failure, COVID PNA T 97.5(ax), HR 81, RR 30, BP 140/95 BIPAP 20/10, FiO2 100% O2 sat 93% WBC 16.3, BUN 25 IS: Bactrim IV q 8 hrs Lovenox SQ q 12 h solu-medrol IVP q h hrs TPN 85ml/hr q 24 h Step Down Status
--- NOTE | 2020-03-16 13:43 | NUR ---
NURSE NOTES: Pt linen changed at this time. Pt linen saturated in dark yellow urine. Pt able to turn w/ assist. When turning, pt desaturates quickly from 94 to 80%. Pauses taken in between, therapeutic talk and mask readjustment done between turns. RT at bedside at this time. Pt cleaned.
[2020-03-16] MEDS ORDERED: NS 275ml ONE (15:47)
[2020-03-16] MEDS ORDERED: Tubing IV Secondary IV ONE (15:47)
[2020-03-16 16:00] VITALS: BP 138/56
--- NOTE | 2020-03-16 16:50 | Pulmonology Progress Note ---
Subjective ROS Limited/Unobtainable: No Interval Events: tolerating BiPAP; saturating better Constitutional: Reports: fatigue, other - on bipap, sats stable, on TPN; Denies: fever HEENT: Repors: no symptoms Respiratory: Reports: dry cough, shortness of breath Cardiovascular: Reports: no symptoms Gastrointestinal/Abdominal: Denies: nausea, vomiting, diarrhea, constipation Psychiatric: Denies: depression Skin: Denies: rash Musculoskeletal: Denies: pain Allergies: Coded Allergies: No Known Allergies (Unverified , 02/05/20) Objective Last 24 Hour Vital Signs Date Time Temp Pulse Resp B/P (MAP) Pulse Ox O2 Delivery O2 Flow Rate FiO2 03/16/20 16:00 87 03/16/20 16:00 100 03/16/20 16:00 Bi-pap 100.0 Bi-pap 03/16/20 15:30 88 27 93 100 03/16/20 12:00 81 03/16/20 12:00 100 03/16/20 12:00 97.5 97 30 140/95 (110) 95 03/16/20 12:00 Bi-pap 100.0 Bi-pap 03/16/20 11:00 89 24 92 100 03/16/20 08:00 100 03/16/20 08:00 Bi-pap 100.0 Bi-pap 03/16/20 08:00 97.7 98 32 160/90 (113) 93 03/16/20 08:00 97 03/16/20 06:45 84 21 94 100 03/16/20 04:00 97.5 81 18 145/82 (103) 95 03/16/20 04:00 67 03/16/20 04:00 100 03/16/20 04:00 Bi-pap 100.0 Bi-pap 03/16/20 04:00 100 03/16/20 04:00 Bi-pap 100.0 Bi-pap 03/16/20 03:30 82 20 95 100 03/16/20 00:00 97.0 91 24 149/92 (111) 94 03/15/20 23:55 77 03/15/20 23:55 100 03/15/20 23:55 Bi-pap 100.0 Bi-pap 03/15/20 23:30 88 28 93 100 03/15/20 20:00 86 03/15/20 20:00 100 03/15/20 20:00 Bi-pap 100.0 Bi-pap 03/15/20 20:00 97.7 84 24 134/84 (101) 92 03/15/20 19:30 84 24 94 100 Intake and Output0 03/15/20 03/16/20 19:00 07:00 Intake Total 900 ml 1387.6 ml Output Total 1000 ml 500 ml Balance -100 ml 887.6 ml IV Total 1387.6 ml Other 900 ml Output Urine Total 1000 ml 500 ml General Appearance: WD/WN, no acute distress HEENT: normocephalic, atraumatic Respiratory: chest wall non-tender Cardiovascular: normal rate, regular rhythm Abdomen: normal bowel sounds, soft, non tender, other - obese Laboratory Tests 03/15/20 18:11: POC Whole Blood Glucose 268H 03/15/20 20:24: POC Whole Blood Glucose 213H 03/15/20 23:27: POC Whole Blood Glucose 231H 03/16/20 04:00: White Blood Count 16.3H, Red Blood Count 5.10, Hemoglobin 14.4, Hematocrit 44.3, Mean Corpuscular Volume 87#, Mean Corpuscular Hemoglobin 28.2, Mean Corpuscular Hemoglobin Concent 32.6, Red Cell Distribution Width 14.0, Platelet Count 242, Mean Platelet Volume 8.6, Neutrophils (%) (Auto) , Lymphocytes (%) (Auto) , Monocytes (%) (Auto) , Eosinophils (%) (Auto) , Basophils (%) (Auto) , Differential Total Cells Counted 100, Neutrophils % (Manual) 95H, Lymphocytes % (Manual) 3L, Monocytes % (Manual) 2, Eosinophils % (Manual) 0, Basophils % (Manual) 0, Band Neutrophils 0, Platelet Estimate Adequate, Platelet Morphology Normal, Red Blood Cell Morphology Normal, Sodium Level 131L, Potassium Level 4.3, Chloride Level 96L, Carbon Dioxide Level 30, Anion Gap 6, Blood Urea Nitrogen 25H, Creatinine 0.9, Estimat Glomerular Filtration Rate > 60, Glucose Level 202H, Calcium Level 8.4L, Phosphorus Level 3.2, Magnesium Level 1.9, Total Bilirubin 1.5H, Direct Bilirubin 0.9H, Aspartate Amino Transf (AST/SGOT) 83H, Alanine Aminotransferase (ALT/SGPT) 212H, Alkaline Phosphatase 167H, Total Protein 6.4, Albumin 2.5L, Globulin 3.9, Albumin/Globulin Ratio 0.6L 03/16/20 05:41: POC Whole Blood Glucose 203H 03/16/20 07:56: POC Whole Blood Glucose 186H 03/16/20 12:02: POC Whole Blood Glucose 268H Current Medications Medications (Trade) Dose Ordered Sig/Dennis Route PRN Reason Start Time Stop Time Status Last Admin Dose Admin Acetaminophen (Tylenol) 650 mg Q4H PRN ORAL Mild Pain (Pain Scale 1-3) 03/09/20 12:00 04/08/20 11:59 Bisacodyl (Dulcolax) 10 mg HSPRN PRN RECTAL Constipation 02/05/20 13:15 05/05/20 13:14 Chlorhexidine Gluconate (Marlen-Hex 2%) 1 applic DAILY@2000 TOPIC 02/14/20 20:00 05/14/20 19:59 03/15/20 20:17 Clonidine HCl (Catapres TTS-1) 1 patch QWEEK TDERMAL 03/09/20 21:00 06/07/20 20:59 03/09/20 21:00 Dextrose 1,000 ml @ 0 mls/hr Q24H PRN IV PN interrupted or unavailable 03/09/20 20:00 04/08/20 19:59 Dextrose (Dextrose 50%) 25 ml Q30M PRN IV Hypoglycemia 03/10/20 00:00 06/08/20 00:00 Dextrose (Dextrose 50%) 50 ml Q30M PRN IV Hypoglycemia 03/10/20 00:00 06/08/20 00:00 Enoxaparin Sodium (Lovenox) 40 mg DAILY SUBQ 03/13/20 12:00 06/11/20 11:59 03/16/20 08:09 Fat Emulsion Intravenous 216 ml/Amino Acids/ Electrolytes/ Dextrose 2,016 ml @ 84 mls/hr Q24H IV 03/15/20 20:00 04/14/20 19:59 03/15/20 20:18 Hydralazine HCl (Apresoline) 10 mg Q6H PRN IV For High Blood Pressure 03/09/20 17:00 06/07/20 16:59 03/12/20 16:54 Insulin Aspart (NovoLOG) Q6HR SUBQ 03/10/20 00:00 4/8/21 00:00 03/16/20 12:04 Insulin Detemir (Levemir) 18 units Q12HR SUBQ 03/14/20 21:00 06/10/20 20:59 03/16/20 08:09 Lactulose (Cephulac) 20 gm THREE TIMES A DAY ORAL 03/08/20 13:00 04/07/20 12:59 03/14/20 17:25 Methylprednisolone Sodium Succinate (Solu-MEDROL) 40 mg EVERY 8 HOURS IVP 03/07/20 18:58 06/05/20 18:57 03/16/20 14:10 Pantoprazole (Protonix) 40 mg EVERY 12 HOURS IVP 03/12/20 21:00 04/11/20 20:59 03/16/20 07:58 Polyethylene Glycol (Miralax) 17 gm BEDTIME ORAL 03/08/20 21:00 04/07/20 20:59 03/10/20 20:33 Promethazine HCl/ Codeine (Phenergan with Codeine) 5 ml Q4H PRN ORAL For Cough 02/22/20 12:15 03/23/20 12:14 03/12/20 09:00 Trimethoprim/ Sulfamethoxazole 20 ml/Dextrose 570 ml @ 380 mls/hr T1PN-IT BACTRIM IV 03/14/20 00:00 03/21/20 00:00 03/16/20 08:36 Vitamin D (Vitamin D) 5,000 unit DAILY ORAL 03/15/20 09:00 04/14/20 08:59 Assessment/Plan Assessment/Plan 1.COVID-19 pneumonia. - last COVID-19 test positive after two negative tests - CTA 02/05/2020 ground-glass and consolidating infiltrates in the dependent portions of both lower lobes and to lesser degree the upper lobes consistent with bilateral pneumonia. No evidence of pulmonary embolus. - CXR 02/17/2020 worsening bilateral infiltrates; Repeat CXR shows basilar linear densities - CT chest 02/18 shows Increased extensive patchy ground-glass opacities and densities throughout the lungs, suggestive of Covid 19 infection. - currently on BiPAP. Saturations 90%. - Mycoplasma pneumoniae IgG 273; M. pneumoniae IgM titer within normal limits - D-dimer 0.90; on full dose Lovenox -Discontinued Decadron, now on Solumedrol - s/p remdesivir - is net I/O negative -We will continue TPN He has had a progressive increase in LDH,-started on Bactrim due to concern about pneumocystis. - Looking unchanged today. 2. Initial negative rapid COVID-19 gene assay.- however repeat COVID-19 test positive 3. Smoker. 4. DVT ppx - on lovenox 5. Hypertension - on hydralazine, and norvasc - On cardiac diet 6. Blood culture positive for gram positive cocci staph aureus - on Abx - CT abd/pelvis showed no abscess per ID - TTE/ FERNY held off due to COVID-19 status - PICC line in place (Patient was seen earlier today. Signature timestamp does not reflect patient encounter time) John Mata MD . John Mata MD Mar 16, 2020 16:50
--- NOTE | 2020-03-16 17:20 | Cardiology Progress Note ---
Assessment/Plan Assessment/Plan Acute covid 19 pneumonia chest pain possible M/S infiltrate bilat bacteremia drug free for 28 years his of ivda hypernatremia mild abn lfts on bipap echo normal wall motion before hypoxemia unlikely cardiac related ct of the chest done most recently showed extensive infiltrate felt to be due to worsening covid 19 infection off anticoagulation continue supportive care remain on bipap saturating ok at rest renal fxn seem ok tele sinus not appear tachy on available recorded strips na imporved renal following cxr improved bp is high,on tts patch and iv hydralazine ekg and trop all ok on repeat in the past few day echo reviewed afew days ago showed still normal radha function no valvular dysfunction Subjective Subjective pt now in covid 19 isolation per rn: rper dr fry Interval Events: tolerating BiPAP; saturating better Constitutional: Reports: fatigue, other - on bipap, sats stable, on TPN; Denies : fever HEENT: Repors: no symptoms Respiratory: Reports: dry cough, shortness of breath Cardiovascular: Reports: no symptoms Gastrointestinal/Abdominal: Denies: nausea, vomiting, diarrhea, constipatio Objective Last 24 Hour Vital Signs Date Time Temp Pulse Resp B/P (MAP) Pulse Ox O2 Delivery O2 Flow Rate FiO2 03/16/20 16:00 87 03/16/20 16:00 100 03/16/20 16:00 Bi-pap 100.0 Bi-pap 03/16/20 15:30 88 27 93 100 03/16/20 12:00 81 03/16/20 12:00 100 03/16/20 12:00 97.5 97 30 140/95 (110) 95 03/16/20 12:00 Bi-pap 100.0 Bi-pap 03/16/20 11:00 89 24 92 100 03/16/20 08:00 100 03/16/20 08:00 Bi-pap 100.0 Bi-pap 03/16/20 08:00 97.7 98 32 160/90 (113) 93 03/16/20 08:00 97 03/16/20 06:45 84 21 94 100 03/16/20 04:00 97.5 81 18 145/82 (103) 95 03/16/20 04:00 67 03/16/20 04:00 100 03/16/20 04:00 Bi-pap 100.0 Bi-pap 03/16/20 04:00 100 03/16/20 04:00 Bi-pap 100.0 Bi-pap 03/16/20 03:30 82 20 95 100 03/16/20 00:00 97.0 91 24 149/92 (111) 94 03/15/20 23:55 77 03/15/20 23:55 100 03/15/20 23:55 Bi-pap 100.0 Bi-pap 03/15/20 23:30 88 28 93 100 03/15/20 20:00 86 03/15/20 20:00 100 03/15/20 20:00 Bi-pap 100.0 Bi-pap 03/15/20 20:00 97.7 84 24 134/84 (101) 92 03/15/20 19:30 84 24 94 100 Intake and Output 03/15/20 03/16/20 19:00 07:00 Intake Total 900 ml 1387.6 ml Output Total 1000 ml 500 ml Balance -100 ml 887.6 ml IV Total 1387.6 ml Other 900 ml Output Urine Total 1000 ml 500 ml Laboratory Tests Test 03/15/20 18:11 03/15/20 20:24 03/15/20 23:27 03/16/20 04:00 POC Whole Blood Glucose 268 MG/DL (74-106) H 213 MG/DL (74-106) H 231 MG/DL (74-106) H White Blood Count 16.3 K/UL (4.8-10.8) H Red Blood Count 5.10 M/UL (4.70-6.10) Hemoglobin 14.4 G/DL (14.2-18.0) Hematocrit 44.3 % (42.0-52.0) Mean Corpuscular Volume 87 FL (80-99) # Mean Corpuscular Hemoglobin 28.2 PG (27.0-31.0) Mean Corpuscular Hemoglobin Concent 32.6 G/DL (32.0-36.0) Red Cell Distribution Width 14.0 % (11.6-14.8) Platelet Count 242 K/UL (150-450) Mean Platelet Volume 8.6 FL (6.5-10.1) Neutrophils (%) (Auto) % (45.0-75.0) Lymphocytes (%) (Auto) % (20.0-45.0) Monocytes (%) (Auto) % (1.0-10.0) Eosinophils (%) (Auto) % (0.0-3.0) Basophils (%) (Auto) % (0.0-2.0) Differential Total Cells Counted 100 Neutrophils % (Manual) 95 % (45-75) H Lymphocytes % (Manual) 3 % (20-45) L Monocytes % (Manual) 2 % (1-10) Eosinophils % (Manual) 0 % (0-3) Basophils % (Manual) 0 % (0-2) Band Neutrophils 0 % (0-8) Platelet Estimate Adequate Platelet Morphology Normal Red Blood Cell Morphology Normal Sodium Level 131 MMOL/L (136-145) L Potassium Level 4.3 MMOL/L (3.5-5.1) Chloride Level 96 MMOL/L (98-107) L Carbon Dioxide Level 30 MMOL/L (21-32) Anion Gap 6 mmol/L (5-15) Blood Urea Nitrogen 25 mg/dL (7-18) H Creatinine 0.9 MG/DL (0.55-1.30) Estimat Glomerular Filtration Rate > 60 mL/min (>60) Glucose Level 202 MG/DL (74-106) H Calcium Level 8.4 MG/DL (8.5-10.1) L Phosphorus Level 3.2 MG/DL (2.5-4.9) Magnesium Level 1.9 MG/DL (1.8-2.4) Total Bilirubin 1.5 MG/DL (0.2-1.0) H Direct Bilirubin 0.9 MG/DL (0.0-0.3) H Aspartate Amino Transf (AST/SGOT) 83 U/L (15-37) H Alanine Aminotransferase (ALT/SGPT) 212 U/L (12-78) H Alkaline Phosphatase 167 U/L (46-116) H Total Protein 6.4 G/DL (6.4-8.2) Albumin 2.5 G/DL (3.4-5.0) L Globulin 3.9 g/dL Albumin/Globulin Ratio 0.6 (1.0-2.7) L Test 03/16/20 05:41 03/16/20 07:56 03/16/20 12:02 03/16/20 17:01 POC Whole Blood Glucose 203 MG/DL (74-106) H 186 MG/DL (74-106) H 268 MG/DL (74-106) H 201 MG/DL (74-106) H Objective pt in covid 19 isoaltion with acute infection per dr fry Respiratory: chest wall non-tender Cardiovascular: normal rate, regular rhythm Abdomen: normal bowel sounds, soft, non tender, other - obese Manan Awan MD Mar 16, 2020 17:20
--- NOTE | 2020-03-16 17:43 | NUR ---
NURSE HAND-OFF REPORT: Important Events on Shift: labs corrected by Sherry MERINO, Patient Status: fc, stable Diet: TPN @84cc Pending Orders: Pending Results/Labs: CXR 03/17 Pending MD notification: Latest Vital Signs: Temperature 97.8 , Pulse 91 , B/P 138 /56 , Respiratory Rate 24 , O2 SAT 95 , Room Air, O2 Flow Rate 100.0 . Vital Sign Comment: EKG Rhythm: Sinus Rhythm Rhythm change?: N MD Notified?: Courtney Paige MD Response: Message left await call Latest Hassan Fall Score: 45 Fall Risk: High Risk Safety Measures: Call light Within Reach, Bed Alarm Zone 1, Side Rails Side Rails x2, Bed position Low and Locked. Fall Precautions: Yellow Socks Yellow Gown Door Sign Patient Fall Education Report to be given. Addendum: 03/16/20 at 1919 by Nadja Castellano RN RN Pt is stable. Plan of care endorsed to Claude Diamond
--- NOTE | 2020-03-16 19:15 | NUR ---
NURSE NOTES: Received report from PRIYANKA Saez. Pt in bed, A/O x3 , able to make needs known. In no apparent cardiac and respiratory distress noted. On director of student affairs showing SR with 81 hr.On BiPAP 20/10, FiO2 100% saturating @94%. With PICC line double lumen running Intralipids in TPN @84ml/hr, no infiltration noted. With condom cath draining jeff color urine via gravity. Safety measures in place, bed is in the lowest position with side rails x2 and locked. Call light and bedside table is within reach. Will continue plan of care.
[2020-03-16 20:00] VITALS: BP 140/93
[2020-03-16] MEDS: Dyna-Hex 2% Top Sol 2oz TOPIC SCH (20:04)
[2020-03-16] MEDS: TPN IV SCH (20:05)
[2020-03-16] MEDS: FAT EMULSION 20% IV SCH (20:05)
[2020-03-16] MEDS: Miralax 17gm pkt ORAL SCH (20:05)
--- NOTE | 2020-03-16 22:10 | NUR ---
NURSE NOTES: Oral done with rt on bedside. pt. Able to remove multiple dark colored pieces of dried saliva and dried boogers from his nose and mouth.Pt did desaturated but recovered. Pt agreed to do oral care again at around 3am in the morning.
[2020-03-17] VITALS: BP 137/93
[2020-03-17 04:00] VITALS: BP 130/90
[2020-03-17] MEDS: Solu-MEDROL 40mg Inj IVP SCH ×3 (05:17→21:24)
[2020-03-17] MEDS: NovoLOG Insulin Flexpen SUBQ SCH ×3 (05:26→17:42)
[2020-03-17 05:51] LABS: HEMOGLOBIN 12.9 G/DL (14.2-18.0); MEAN CORPUSCULAR VOLUME 100 FL (80-99); PLATELET COUNT 193 K/UL (150-450); RED BLOOD COUNT 4.28 M/UL (4.70-6.10); RED CELL DISTRIBUTION WIDTH 14.8 % (11.6-14.8); WHITE BLOOD COUNT 12.4 K/UL (4.8-10.8)
--- NOTE | 2020-03-17 06:25 | NUR ---
RESPIRATORY NOTE: Pt received on Bipap with current settings. 20/10 RR:14, 100%. Alarms are on and audible. Pt refused foam tape. No facial wounds found. No SOB noted at this time. Will continue to monitor.
--- NOTE | 2020-03-17 07:32 | NUR ---
NURSE HAND-OFF REPORT: Important Events on Shift: Stable Patient Status: Fair Diet: Pending Orders: Pending Results/Labs: Pending MD notification: Latest Vital Signs: Temperature 96.4 , Pulse 91 , B/P 130 /90 , Respiratory Rate 24 , O2 SAT 95 , Room Air, O2 Flow Rate 100.0 . Vital Sign Comment: Stable EKG Rhythm: Sinus Rhythm Rhythm change?: N MD Notified?: Courtney Paige MD Response: Message left await call Latest Hassan Fall Score: 45 Fall Risk: High Risk Safety Measures: Call light Within Reach, Bed Alarm Zone 1, Side Rails Side Rails x2, Bed position Low and Locked. Fall Precautions: Yellow Socks Yellow Gown Door Sign Patient Fall Education Report given to Tahmina Tsang .
--- NOTE | 2020-03-17 07:33 | NUR ---
NURSE NOTES: Received patient in bed awake. Bipap in place, no acute distress. PICC line intact and patient, TPN ongoing. HOB elevated. Bed locked in low position. Call light within reach. Will continue plan of care.
[2020-03-17 08:00] VITALS: BP 152/102
[2020-03-17 08:49] LABS: HEMATOCRIT 44.4 % (42.0-52.0); HEMOGLOBIN 14.3 G/DL (14.2-18.0); MEAN CORPUSCULAR VOLUME 87 FL (80-99); PLATELET COUNT 256 K/UL (150-450); RED BLOOD COUNT 5.09 M/UL (4.70-6.10); RED CELL DISTRIBUTION WIDTH 14.1 % (11.6-14.8); WHITE BLOOD COUNT 19.5 K/UL (4.8-10.8)
[2020-03-17] MEDS: Lactulose 20gm/30ml UDC ORAL SCH ×3 (09:00→17:44)
[2020-03-17] MEDS: Bactrim 20ml in D5W 550ml IV SCH ×2 (09:00→15:59)
[2020-03-17] MEDS: Vitamin D 1000 units Tab ORAL SCH (09:01)
[2020-03-17] MEDS: Pantoprazole Inj IVP SCH ×2 (09:01→21:24)
[2020-03-17] MEDS: Enoxaparin 40mg Inj SUBQ SCH (09:02)
[2020-03-17] MEDS: Levemir Flexpen SUBQ SCH ×2 (09:03→21:40)
[2020-03-17 09:24] LABS: ALANINE AMINOTRANSFERASE 290 U/L (12-78); ALBUMIN 2.4 G/DL (3.4-5.0); ALBUMIN/GLOBULIN RATIO 0.6 (1.0-2.7); ALKALINE PHOSPHATASE 173 U/L (46-116); ANION GAP 13 mmol/L (5-15); ASPARTATE AMINO TRANSFERASE 114 U/L (15-37); BILIRUBIN,TOTAL 2.1 MG/DL (0.2-1.0); BLOOD UREA NITROGEN 22 mg/dL (7-18); CALCIUM 8.8 MG/DL (8.5-10.1); CARBON DIOXIDE 23 MMOL/L (21-32); CHLORIDE 95 MMOL/L (98-107); POTASSIUM 4.8 MMOL/L (3.5-5.1); SODIUM 131 MMOL/L (136-145)
[2020-03-17 09:53] LABS: BILIRUBIN,DIRECT 1.6 MG/DL (0.0-0.3)
--- NOTE | 2020-03-17 10:44 | NUR ---
Cigarette Package ExaminerTechnical Support Specialist SI: Respiratory Failure, COVID PNA T 97.7(ax), HR 109, RR 33, BP 152/102 BIPAP 20/10, FiO2 100% O2 sat 91% WBC 19.5, BUN 22, Bilirubin total 2.1, Direct Bili-1.6, AST 114, ALT 290, Alk Phos 173 IS: Bactrim IV q 8 hrs Lovenox SQ q 12 h solu-medrol IVP q h hrs TPN 85ml/hr q 24 h Step Down Status
--- NOTE | 2020-03-17 10:53 | General Progress Note ---
Subjective ROS Limited/Unobtainable: No Allergies: Coded Allergies: No Known Allergies (Unverified , 02/05/20) Objective Last 24 Hour Vital Signs Date Time Temp Pulse Resp B/P (MAP) Pulse Ox O2 Delivery O2 Flow Rate FiO2 03/17/20 09:28 152/102 03/17/20 08:00 Bi-pap 100.0 Bi-pap 03/17/20 08:00 100 03/17/20 08:00 97.7 109 33 152/102 (119) 91 03/17/20 08:00 84 03/17/20 06:25 114 17 94 100 03/17/20 04:00 96.4 91 24 130/90 (103) 95 03/17/20 04:00 Bi-pap 100.0 Bi-pap 03/17/20 04:00 100 03/17/20 03:47 104 03/17/20 02:56 84 22 94 100 03/17/20 00:00 97.5 91 19 137/93 (108) 96 03/17/20 00:00 Bi-pap 100.0 Bi-pap 03/16/20 23:49 85 03/16/20 22:53 113 30 91 100 03/16/20 20:27 140/93 03/16/20 20:00 92 03/16/20 20:00 Bi-pap 100.0 Bi-pap 03/16/20 20:00 100 03/16/20 20:00 97.3 91 28 140/93 (109) 95 03/16/20 18:52 91 27 94 100 03/16/20 16:00 97.8 91 24 138/56 (83) 95 03/16/20 16:00 87 03/16/20 16:00 100 03/16/20 16:00 Bi-pap 100.0 Bi-pap 03/16/20 15:30 88 27 93 100 03/16/20 12:00 81 03/16/20 12:00 100 03/16/20 12:00 97.5 97 30 140/95 (110) 95 03/16/20 12:00 Bi-pap 100.0 Bi-pap 03/16/20 11:00 89 24 92 100 Intake and Output 03/16/20 03/17/20 19:00 07:00 Intake Total 900 ml 1242 ml Output Total 1200 ml 1150 ml Balance -300 ml 92 ml IV Total 1242 ml Other 900 ml Output Urine Total 1200 ml 1150 ml Laboratory Tests 03/16/20 12:02: POC Whole Blood Glucose 268H 03/16/20 17:01: POC Whole Blood Glucose 201H 03/16/20 20:42: POC Whole Blood Glucose 166H 03/16/20 23:13: POC Whole Blood Glucose 159H 03/17/20 04:10: White Blood Count 12.4H, Red Blood Count 4.28L, Hemoglobin 12.9L, Hematocrit 43.0, Mean Corpuscular Volume 100#H, Mean Corpuscular Hemoglobin 30.0, Mean Corpuscular Hemoglobin Concent 29.9L, Red Cell Distribution Width 14.8, Platelet Count 193, Mean Platelet Volume 7.8, Neutrophils (%) (Auto) , Lymphocytes (%) (Auto) , Monocytes (%) (Auto) , Eosinophils (%) (Auto) , Basophils (%) (Auto) , Differential Total Cells Counted 100, Neutrophils % (Manual) 96H, Lymphocytes % (Manual) 3L, Monocytes % (Manual) 1, Eosinophils % (Manual) 0, Basophils % (Manual) 0, Band Neutrophils 0, Platelet Estimate Adequate, Platelet Morphology Normal, Anisocytosis 1+ 03/17/20 05:22: POC Whole Blood Glucose 195H 03/17/20 08:25: White Blood Count 19.5#H, Red Blood Count 5.09, Hemoglobin 14.3, Hematocrit 44.4, Mean Corpuscular Volume 87#, Mean Corpuscular Hemoglobin 28.2, Mean Corpuscular Hemoglobin Concent 32.3, Red Cell Distribution Width 14.1, Platelet Count 256, Mean Platelet Volume 7.9, Neutrophils (%) (Auto) , Lymphocytes (%) (Auto) , Monocytes (%) (Auto) , Eosinophils (%) (Auto) , Basophils (%) (Auto) , Differential Total Cells Counted 100, Neutrophils % (Manual) 85H, Lymphocytes % (Manual) 11L, Monocytes % (Manual) 4, Eosinophils % (Manual) 0, Basophils % (Manual) 0, Band Neutrophils 0, Platelet Estimate Adequate, Platelet Morphology Normal, Anisocytosis 1+, Sodium Level 131L, Potassium Level 4.8, Chloride Level 95L, Carbon Dioxide Level 23, Anion Gap 13, Blood Urea Nitrogen 22H, Creatinine 1.0, Estimat Glomerular Filtration Rate > 60, Glucose Level 250H, Calcium Level 8.8, Phosphorus Level 4.0, Magnesium Level 2.4, Total Bilirubin 2.1H, Direct Bilirubin 1.6H, Aspartate Amino Transf (AST/SGOT) 114H, Alanine Aminotransferase (ALT/SGPT) 290H, Alkaline Phosphatase 173H, C-Reactive Protein, Quantitative 0.6, Pro-B-Type Natriuretic Peptide 367H, Total Protein 6.3L, Albumin 2.4L, Globulin 3.9, Albumin/Globulin Ratio 0.6L Height (Feet): 5 Height (Inches): 10.00 Weight (Pounds): 240 General Appearance: no apparent distress EENT: normal ENT inspection Neck: supple Cardiovascular: normal rate Respiratory/Chest: decreased breath sounds Abdomen: normal bowel sounds, non tender, soft Extremities: non-tender Assessment/Plan Status: not improved, unchanged Assessment/Plan: covid + on BIPAP DM HTN FTT constipation not stable for PEG could not tolerate NGT placement TPN for now bowel regimen covid care rising LFTS>>> will monitor>> most likely due to TPN will Da Wilson MD Mar 17, 2020 10:53
--- NOTE | 2020-03-17 11:08 | Pulmonology Progress Note ---
Subjective ROS Limited/Unobtainable: No Interval Events: tolerating BiPAP; saturating better Constitutional: Reports: fatigue, other - on bipap, sats stable, on TPN; Denies: fever HEENT: Repors: no symptoms Respiratory: Reports: dry cough, shortness of breath Cardiovascular: Reports: no symptoms Gastrointestinal/Abdominal: Denies: nausea, vomiting, diarrhea, constipation Psychiatric: Denies: depression Skin: Denies: rash Musculoskeletal: Denies: pain Allergies: Coded Allergies: No Known Allergies (Unverified , 02/05/20) Objective Last 24 Hour Vital Signs Date Time Temp Pulse Resp B/P (MAP) Pulse Ox O2 Delivery O2 Flow Rate FiO2 03/17/20 09:28 152/102 03/17/20 08:00 Bi-pap 100.0 Bi-pap 03/17/20 08:00 100 03/17/20 08:00 97.7 109 33 152/102 (119) 91 03/17/20 08:00 84 03/17/20 06:25 114 17 94 100 03/17/20 04:00 96.4 91 24 130/90 (103) 95 03/17/20 04:00 Bi-pap 100.0 Bi-pap 03/17/20 04:00 100 03/17/20 03:47 104 03/17/20 02:56 84 22 94 100 03/17/20 00:00 97.5 91 19 137/93 (108) 96 03/17/20 00:00 Bi-pap 100.0 Bi-pap 03/16/20 23:49 85 03/16/20 22:53 113 30 91 100 03/16/20 20:27 140/93 03/16/20 20:00 92 03/16/20 20:00 Bi-pap 100.0 Bi-pap 03/16/20 20:00 100 03/16/20 20:00 97.3 91 28 140/93 (109) 95 03/16/20 18:52 91 27 94 100 03/16/20 16:00 97.8 91 24 138/56 (83) 95 03/16/20 16:00 87 03/16/20 16:00 100 03/16/20 16:00 Bi-pap 100.0 Bi-pap 03/16/20 15:30 88 27 93 100 03/16/20 12:00 81 03/16/20 12:00 100 03/16/20 12:00 97.5 97 30 140/95 (110) 95 03/16/20 12:00 Bi-pap 100.0 Bi-pap Intake and Output 03/16/20 03/17/20 19:00 07:00 Intake Total 900 ml 1242 ml Output Total 1200 ml 1150 ml Balance -300 ml 92 ml IV Total 1242 ml Other 900 ml Output Urine Total 1200 ml 1150 ml Objective 03/17 saturating at 91-92% on the current BiPAP setting 03/08 saturating in the low 90s on BiPAP 03/06 saturating at 85-88% on BiPAP 03/05 saturating 77-88% on BiPAP 03/04 now saturating at 89-90% on BiPAP 03/03 saturating in the low 80s on BiPAP 02/28 saturating 93% on BiPAP 02/23 saturating 94% on BiPAP 02/22 tolerating BiPAP, saturating at 90% 02/21 now on BiPAP, saturating at 95% 02/18 still on 15L NRB mask saturating 88-93% 02/17 now on 15L NRB mask saturating at 91% 02/17/2020 now on 2 lpm NC 02/16/2020 no change 02/15/2020 no major change 02/14/2020 saturating well on RAD; NAD 02/13/2020 pt asleep; saturating well on RA 02/12/2020 sitting up in a chair; saturating well on RA 02/11/2020 back on isolation due to COVID-19 positive status again; currently being worked up for positive blood culture 02/09/2020 off isolation; saturating well on RA 02/08/2020 feeling better; COVID-19 PCR neg 02/07/2020 reports feeling better; COVID-19 PCR pending 02/06/2020 pt laying in bed; reports feeling better General Appearance: WD/WN, no acute distress HEENT: normocephalic, atraumatic Respiratory: chest wall non-tender Cardiovascular: normal rate, regular rhythm Abdomen: normal bowel sounds, soft, non tender, other - obese Laboratory Tests 03/16/20 12:02: POC Whole Blood Glucose 268H 03/16/20 17:01: POC Whole Blood Glucose 201H 03/16/20 20:42: POC Whole Blood Glucose 166H 03/16/20 23:13: POC Whole Blood Glucose 159H 03/17/20 04:10: White Blood Count 12.4H, Red Blood Count 4.28L, Hemoglobin 12.9L, Hematocrit 43.0, Mean Corpuscular Volume 100#H, Mean Corpuscular Hemoglobin 30.0, Mean Corpuscular Hemoglobin Concent 29.9L, Red Cell Distribution Width 14.8, Platelet Count 193, Mean Platelet Volume 7.8, Neutrophils (%) (Auto) , Lymphocytes (%) (Auto) , Monocytes (%) (Auto) , Eosinophils (%) (Auto) , Basophils (%) (Auto) , Differential Total Cells Counted 100, Neutrophils % (Manual) 96H, Lymphocytes % (Manual) 3L, Monocytes % (Manual) 1, Eosinophils % (Manual) 0, Basophils % (Manual) 0, Band Neutrophils 0, Platelet Estimate Adequate, Platelet Morphology Normal, Anisocytosis 1+ 03/17/20 05:22: POC Whole Blood Glucose 195H 03/17/20 08:25: White Blood Count 19.5#H, Red Blood Count 5.09, Hemoglobin 14.3, Hematocrit 44.4, Mean Corpuscular Volume 87#, Mean Corpuscular Hemoglobin 28.2, Mean Corpuscular Hemoglobin Concent 32.3, Red Cell Distribution Width 14.1, Platelet Count 256, Mean Platelet Volume 7.9, Neutrophils (%) (Auto) , Lymphocytes (%) (A uto) , Monocytes (%) (Auto) , Eosinophils (%) (Auto) , Basophils (%) (Auto) , Differential Total Cells Counted 100, Neutrophils % (Manual) 85H, Lymphocytes % (Manual) 11L, Monocytes % (Manual) 4, Eosinophils % (Manual) 0, Basophils % (Manual) 0, Band Neutrophils 0, Platelet Estimate Adequate, Platelet Morphology Normal, Anisocytosis 1+, Sodium Level 131L, Potassium Level 4.8, Chloride Level 95L, Carbon Dioxide Level 23, Anion Gap 13, Blood Urea Nitrogen 22H, Creatinine 1.0, Estimat Glomerular Filtration Rate > 60, Glucose Level 250H, Calcium Level 8.8, Phosphorus Level 4.0, Magnesium Level 2.4, Total Bilirubin 2.1H, Direct Bilirubin 1.6H, Aspartate Amino Transf (AST/SGOT) 114H, Alanine Aminotransferase (ALT/SGPT) 290H, Alkaline Phosphatase 173H, C-Reactive Protein, Quantitative 0.6, Pro-B-Type Natriuretic Peptide 367H, Total Protein 6.3L, Albumin 2.4L, Globulin 3.9, Albumin/Globulin Ratio 0.6L Current Medications Medications (Trade) Dose Ordered Sig/Dennis Route PRN Reason Start Time Stop Time Status Last Admin Dose Admin Acetaminophen (Tylenol) 650 mg Q4H PRN ORAL Mild Pain (Pain Scale 1-3) 03/09/20 12:00 04/08/20 11:59 Bisacodyl (Dulcolax) 10 mg HSPRN PRN RECTAL Constipation 02/05/20 13:15 05/05/20 13:14 Chlorhexidine Gluconate (Marlen-Hex 2%) 1 applic DAILY@2000 TOPIC 02/14/20 20:00 05/14/20 19:59 03/16/20 20:04 Clonidine HCl (Catapres TTS-1) 1 patch QWEEK TDERMAL 03/09/20 21:00 06/07/20 20:59 03/16/20 20:27 Dextrose 1,000 ml @ 0 mls/hr Q24H PRN IV PN interrupted or unavailable 03/09/20 20:00 04/08/20 19:59 Dextrose (Dextrose 50%) 25 ml Q30M PRN IV Hypoglycemia 03/10/20 00:00 06/08/20 00:00 Dextrose (Dextrose 50%) 50 ml Q30M PRN IV Hypoglycemia 03/10/20 00:00 06/08/20 00:00 Enoxaparin Sodium (Lovenox) 40 mg DAILY SUBQ 03/13/20 12:00 06/11/20 11:59 03/17/20 09:02 Fat Emulsion Intravenous 216 ml/Amino Acids/ Electrolytes/ Dextrose 2,016 ml @ 84 mls/hr Q24H IV 03/15/20 20:00 03/17/20 19:59 03/16/20 20:05 Hydralazine HCl (Apresoline) 10 mg Q6H PRN IV For High Blood Pressure 03/09/20 17:00 06/07/20 16:59 03/17/20 09:28 Insulin Aspart (NovoLOG) Q6HR SUBQ 03/10/20 00:00 06/08/20 00:00 03/17/20 05:26 Insulin Detemir (Levemir) 18 units Q12HR SUBQ 03/14/20 21:00 06/10/20 20:59 03/17/20 09:03 Lactulose (Cephulac) 20 gm THREE TIMES A DAY ORAL 03/08/20 13:00 04/07/20 12:59 03/17/20 09:00 Methylprednisolone Sodium Succinate (Solu-MEDROL) 40 mg EVERY 8 HOURS IVP 03/07/20 18:58 06/05/20 18:57 03/17/20 05:17 Pantoprazole (Protonix) 40 mg EVERY 12 HOURS IVP 03/12/20 21:00 04/11/20 20:59 03/17/20 09:01 Polyethylene Glycol (Miralax) 17 gm BEDTIME ORAL 03/08/20 21:00 04/07/20 20:59 03/10/20 20:33 Promethazine HCl/ Codeine (Phenergan with Codeine) 5 ml Q4H PRN ORAL For Cough 02/22/20 12:15 03/23/20 12:14 03/12/20 09:00 Trimethoprim/ Sulfamethoxazole 20 ml/Dextrose 570 ml @ 380 mls/hr [id number] BACTRIM IV 03/14/20 00:00 03/21/20 00:00 03/17/20 09:00 Vitamin D (Vitamin D) 5,000 unit DAILY ORAL 03/15/20 09:00 04/14/20 08:59 03/17/20 09:01 Assessment/Plan Assessment/Plan 1.COVID-19 pneumonia. - last COVID-19 test positive after two negative tests - CTA 02/05/2020 ground-glass and consolidating infiltrates in the dependent portions of both lower lobes and to lesser degree the upper lobes consistent with bilateral pneumonia. No evidence of pulmonary embolus. - CXR 02/17/2020 worsening bilateral infiltrates; Repeat CXR shows basilar linear densities - CT chest 02/18 shows Increased extensive patchy ground-glass opacities and densities throughout the lungs, suggestive of Covid 19 infection. - currently on BiPAP. Saturations 90%. - Mycoplasma pneumoniae IgG 273; M. pneumoniae IgM titer within normal limits - D-dimer 0.90; on full dose Lovenox -Discontinued Decadron, now on Solumedrol - s/p remdesivir - is net I/O negative -We will continue TPN He has had a progressive increase in LDH,-started on Bactrim due to concern about pneumocystis. - Looking unchanged today. 2. Initial negative rapid COVID-19 gene assay.- however repeat COVID-19 test positive 3. Smoker. 4. DVT ppx - on lovenox 5. Hypertension - on hydralazine, and norvasc 6. Blood culture positive for gram positive cocci staph aureus - on Abx - CT abd/pelvis showed no abscess per ID - TTE/ FERNY held off due to COVID-19 status 7. Leulkocytosis - ID following Edilson Marinelli Mar 17, 2020 11:08
--- NOTE | 2020-03-17 11:13 | NUR ---
RD ASSESSMENT & RECOMMENDATIONS SEE CARE ACTIVITY FOR COMPLETE ASSESSMENT DAILY ESTIMATED NEEDS: Needs based on Pulmonary, cardiac 81kg abw 23-28 kcals/kg 6888-5164 total kcals 1.25-1.5 g protein/kg 101-122 g total protein 25-30 mL/kg 5191-9685 total fluid mLs NUTRITION DIAGNOSIS: * Inadequate oral intake R/T clinical and respiratory status as evidenced by COVID-19 ++, on continuous BIPAP, prolonged meal refusals, pt is now on TPN. * Decreased sodium and fat needs r/t HTN and obesity as evidenced by pt w/ cardiac history, elev BP (159/98-> now improved, on BP meds and diuretics), BMI >30, obese per guidelines. (INACTIVE) CURRENT DIET: NPO, ON TPN PO DIET RECOMMENDATIONS: WHEN SAFE FOR ORAL DIET -> [employer] eval prior to diet initiatino ENTERAL NUTRITION RECOMMENDATIONS: Glucerna 1.5 goal of 56ml/hr x24 hrs to meet needs to provide 1344ml, 2016 kcal, 111g pro, 1020ml free H2O - If medically able, rec non oral feeds. - GOAL ABOVE IF TOLERATED WITHOUT ASPIRATION/ Otherwise run at rate tolerated to provide partial nutrition and maintain gut integrity. - Start @16ml for 6 hrs, advance as tolerated 10ml/hr q4-6 hrs to goal - Flush per HOB over 30 degrees. - With non oral feeds rec added Vit C . PARENTERAL NUTRITION RECOMMENDATIONS: D/AA Rate: 75 IL Rate: 8 Total Rate: 83 Volume: 1992 % Dextrose: 15 % AA: 5.5 Energy (kcals/kg): 1698 Protein (g/kg protein): 99 Nonprotein KCALS: 1302 GIR (mg CHO/kg/min): 2.3 % Fat KCALS: 22 NCP: N Ratio: 82.4:1 TPN Comment: - Rec TPN change d/t elevated LFTs and triglyceride - D15% + AA5.5% @75ml/hr with IL20% @8ml/hr- all 3:1, total of 83ml/hr - Check lytes daily, replete as needed - Monitor BGs, LFTs, and Triglyceride closely w/ TPN - TPN @ goal provides 91% est kcal and 99% est prot needs ADDITIONAL RECOMMENDATIONS: 1) Maintain calibrated bedscale wts; obtain a standing wt as able 2) Obtain HgA1C for eval 3) Monitor LFT's, BGs, and lipid panel, need for formulary change 4) Monitor hydration status- now on TPN 5) Consider TPN -> now ordered 03/09 . .
[2020-03-17 11:27] VITALS: BP 143/82
--- NOTE | 2020-03-17 12:39 | NUR ---
NURSE NOTES: Doctor Marie notified [id number],will see patient today RN ANGEL is in COVID room
--- NOTE | 2020-03-17 12:48 | Nephrology Progress Note ---
Assessment/Plan Problem List: (1) Dehydration (2) Electrolyte imbalance (3) COVID-19 virus infection (4) Pneumonia (5) DMII (diabetes mellitus, type 2) (6) Protein malnutrition Assessment Azotemia, hypernatremia Hypoalbuminemia Staff Otilia bacteremia COVID-19 isolation, pneumonia, bilateral infiltrate Hypertension Diabetes mellitus History of smoking Plan March 17: On TPN. Labs reviewed. Discussed with pharmacist. Sodium content increase. Continue to monitor CMP. Patient continues to have leukocytosis. March 16: On TPN. Labs reviewed. Discussed with pharmacist. Appropriate changes made. Continue to monitor electrolytes. March 15: Remains on TPN. Labs reviewed. Discussed with pharmacist. Continue per current management. March 14: Remains on TPN. Labs reviewed, stable. Vitamin D level low, replacement ordered. Continue to monitor electrolytes and renal parameters. March 13: Patient remains on TPN. Discussed with pharmacist. TPN's sodium content adjusted. Labs reviewed. Continue to monitor electrolytes. Blood pressure remains stable. Continue per consultants. March 12: Patient on TPN. Labs reviewed. CPK remains elevated. Abnormal electrolytes and high blood sugar discussed with pharmacist and TPN adjusted. Continue to monitor labs. Oral Protonix added. Ibuprofen discontinued. Can continue to monitor electrolytes and chemistries. Levemir for high blood sugar added. March 11: Patient on TPN. Labs as of 11:15 AM is still pending. Continue per current treatment plan. Will check labs and adjust TPN as needed. Continue per consultants. March 10: Patient on TPN. Labs reviewed. Electrolytes overall stable. CPK is elevated. Will monitor electrolyte, CPK level, lipid panel. Continue per consultants. Discussed with pharmacist. Discussed with RN. Nutritional evaluation noted. Previously: D5W 100 cc an hour Monitor electrolytes renal parameters TPN and Intralipid ordered Will follow Continue per consultants Dietary consult requested Subjective ROS Limited/Unobtainable: Yes Objective Objective Last 24 Hour Vital Signs Date Time Temp Pulse Resp B/P (MAP) Pulse Ox O2 Delivery O2 Flow Rate FiO2 03/17/20 11:27 96.8 97 25 143/82 (102) 95 03/17/20 09:28 152/102 03/17/20 08:00 Bi-pap 100.0 Bi-pap 03/17/20 08:00 100 03/17/20 08:00 97.7 109 33 152/102 (119) 91 03/17/20 08:00 84 03/17/20 06:25 114 17 94 100 03/17/20 04:00 96.4 91 24 130/90 (103) 95 03/17/20 04:00 Bi-pap 100.0 Bi-pap 03/17/20 04:00 100 03/17/20 03:47 104 03/17/20 02:56 84 22 94 100 03/17/20 00:00 97.5 91 19 137/93 (108) 96 03/17/20 00:00 Bi-pap 100.0 Bi-pap 03/16/20 23:49 85 03/16/20 22:53 113 30 91 100 03/16/20 20:27 140/93 03/16/20 20:00 92 03/16/20 20:00 Bi-pap 100.0 Bi-pap 03/16/20 20:00 100 03/16/20 20:00 97.3 91 28 140/93 (109) 95 03/16/20 18:52 91 27 94 100 03/16/20 16:00 97.8 91 24 138/56 (83) 95 03/16/20 16:00 87 03/16/20 16:00 100 03/16/20 16:00 Bi-pap 100.0 Bi-pap 03/16/20 15:30 88 27 93 100 Intake and Output 03/16/20 03/17/20 19:00 07:00 Intake Total 900 ml 1242 ml Output Total 1200 ml 1150 ml Balance -300 ml 92 ml IV Total 1242 ml Other 900 ml Output Urine Total 1200 ml 1150 ml Laboratory Tests 03/16/20 17:01: POC Whole Blood Glucose 201H 03/16/20 20:42: POC Whole Blood Glucose 166H 03/16/20 23:13: POC Whole Blood Glucose 159H 03/17/20 04:10: White Blood Count 12.4H, Red Blood Count 4.28L, Hemoglobin 12.9L, Hematocrit 43.0, Mean Corpuscular Volume 100#H, Mean Corpuscular Hemoglobin 30.0, Mean Corpuscular Hemoglobin Concent 29.9L, Red Cell Distribution Width 14.8, Platelet Count 193, Mean Platelet Volume 7.8, Neutrophils (%) (Auto) , Lymphocytes (%) (Auto) , Monocytes (%) (Auto) , Eosinophils (%) (Auto) , Basophils (%) (Auto) , Differential Total Cells Counted 100, Neutrophils % (Manual) 96H, Lymphocytes % (Manual) 3L, Monocytes % (Manual) 1, Eosinophils % (Manual) 0, Basophils % (Manual) 0, Band Neutrophils 0, Platelet Estimate Adequate, Platelet Morphology Normal, Anisocytosis 1+ 03/17/20 05:22: POC Whole Blood Glucose 195H 03/17/20 08:25: White Blood Count 19.5#H, Red Blood Count 5.09, Hemoglobin 14.3, Hematocrit 44.4, Mean Corpuscular Volume 87#, Mean Corpuscular Hemoglobin 28.2, Mean Corpuscular Hemoglobin Concent 32.3, Red Cell Distribution Width 14.1, Platelet Count 256, Mean Platelet Volume 7.9, Neutrophils (%) (Auto) , Lymphocytes (%) (Auto) , Monocytes (%) (Auto) , Eosinophils (%) (Auto) , Basophils (%) (Auto) , Differential Total Cells Counted 100, Neutrophils % (Manual) 85H, Lymphocytes % (Manual) 11L, Monocytes % (Manual) 4, Eosinophils % (Manual) 0, Basophils % (Manual) 0, Band Neutrophils 0, Platelet Estimate Adequate, Platelet Morphology Normal, Anisocytosis 1+, Sodium Level 131L, Potassium Level 4.8, Chloride Level 95L, Carbon Dioxide Level 23, Anion Gap 13, Blood Urea Nitrogen 22H, Creatinine 1.0, Estimat Glomerular Filtration Rate > 60, Glucose Level 250H, Calcium Level 8.8, Phosphorus Level 4.0, Magnesium Level 2.4, Total Bilirubin 2.1H, Direct Bilirubin 1.6H, Aspartate Amino Transf (AST/SGOT) 114H, Alanine Aminotransferase (ALT/SGPT) 290H, Alkaline Phosphatase 173H, C-Reactive Protein, Quantitative 0.6, Pro-B-Type Natriuretic Peptide 367H, Total Protein 6.3L, Albumin 2.4L, Globulin 3.9, Albumin/Globulin Ratio 0.6L 03/17/20 11:22: POC Whole Blood Glucose 297H Height (Feet): 5 Height (Inches): 10.00 Weight (Pounds): 240 General Appearance: mild distress EENT: other - On BiPAP 100% Cardiovascular: tachycardia Respiratory/Chest: decreased breath sounds Abdomen: distended Rubin Cooper MD Mar 17, 2020 12:48
--- NOTE | 2020-03-17 13:33 | Diagnostic Imaging Report ---
Indication: Shortness of breath Technique: One view of the chest Comparison: 03/12/2020 Findings: Left arm PICC is again demonstrated. Infiltrates are unchanged. The heart size is upper limits of normal. Impression: Unchanged, over 5 days, findings as above.
--- NOTE | 2020-03-17 14:20 | NUR ---
RADIOLOGY DEPT., CHEST X-RAY DONE.-P.DYE
[2020-03-17 16:00] VITALS: BP 128/104
--- NOTE | 2020-03-17 17:54 | Infectious Diseases Prog Note ---
Assessment/Plan Assessment/Plan ASSESSMENT AND PLAN: 1. staph aureus bacteremia/mssa, ? source, ? endocarditis, sepsis, leukocytosis, ? CAP, PJP less likely with HIV negative and steroids < 1 month covid-19 +, hypoxia, sob, chest x-ray worse, ? PE, ? HCAP/aspiration pna recurrent fevers - ? fungal, ? OI leukocytosis noted - ? new infection, ? steroids cocci serology negative, legionella negative, beta 1,3 D-glucan wnl, Il-16 - 13.7 elevated LFT's - ? TPN, ? Bactrim - US without gallbladder disease, + steatosis - d/w GI - TPN more likely than bactrim as etiology - bactrim for empiric pneumocystis pna treatment -day # 9 - day # 36 mssa tx post neg blood cultures - will be covered by bactrim also - saturations improved, on solumedrol - monitor hypoxia, labs and chest x-ray - CT imaging noted - leukocytosis noted and likely secondary to steroids, cultures negative, fevers better - TPN - reculture for worsening leukocytosis 2. covid-19 isolation 3. Hypertension history. Blood pressure treatment primary care team. 4. Elevated blood sugars. Blood sugar treatment per primary care team. 5. No known drug allergies. 6. Social history is positive for smoking. 7. Family history is noncontributory. 8. MAR was noted. 9. Case was discussed with RN. 10. Continue treatment per primary consultants. Subjective Constitutional: Reports: fatigue; Denies: fever HEENT: Reports: congestion Respiratory: Reports: shortness of breath Cardiovascular: Denies: chest pain Gastrointestinal/Abdominal: Denies: nausea, vomiting, diarrhea Genitourinary: Reports: other Neurologic: Denies: headache Psychiatric: Denies: depression Hematologic: Denies: bleeding Musculoskeletal: Denies: pain Allergies: Coded Allergies: No Known Allergies (Unverified , 02/05/20) Objective Last 24 Hour Vital Signs Date Time Temp Pulse Resp B/P (MAP) Pulse Ox O2 Delivery O2 Flow Rate FiO2 03/17/20 16:00 96.6 125 28 128/104 (112) 92 03/17/20 16:00 Bi-pap 100.0 Bi-pap 03/17/20 16:00 100 03/17/20 12:00 100 03/17/20 12:00 Bi-pap 100.0 Bi-pap 03/17/20 11:36 107 03/17/20 11:27 96.8 97 25 143/82 (102) 95 03/17/20 11:10 101 31 95 100 03/17/20 09:28 152/102 03/17/20 08:00 Bi-pap 100.0 Bi-pap 03/17/20 08:00 100 03/17/20 08:00 97.7 109 33 152/102 (119) 91 03/17/20 08:00 84 03/17/20 06:25 114 17 94 100 03/17/20 04:00 96.4 91 24 130/90 (103) 95 03/17/20 04:00 Bi-pap 100.0 Bi-pap 03/17/20 04:00 100 03/17/20 03:47 104 03/17/20 02:56 84 22 94 100 03/17/20 00:00 97.5 91 19 137/93 (108) 96 03/17/20 00:00 Bi-pap 100.0 Bi-pap 03/16/20 23:49 85 03/16/20 22:53 113 30 91 100 03/16/20 20:27 140/93 03/16/20 20:00 92 03/16/20 20:00 Bi-pap 100.0 Bi-pap 03/16/20 20:00 100 03/16/20 20:00 97.3 91 28 140/93 (109) 95 03/16/20 18:52 91 27 94 100 Height (Feet): 5 Height (Inches): 10.00 Weight (Pounds): 240 General Appearance: no acute distress, other - stable on bipap HEENT: normocephalic, atraumatic, anicteric Respiratory/Chest: crackles/rales, rhonchi - bilaterally Cardiovascular: normal rate, regular rhythm, no gallop/murmur, no JVD Abdomen: normal bowel sounds, soft, non tender, no organomegaly, non distended Genitourinary: other - no joseph Extremities: no cyanosis Skin: no rash Neurologic/Psychiatric: christmas tree grader II-XII grossly normal, abnormal gait, alert, oriented x 3, responsive Lymphatic: no neck adenopathy Musculoskeletal: no effusion CT chest: IMPRESSION: There are mild subpleural ground-glass and consolidating infiltrates in the dependent portions of both lower lobes and to lesser degree the upper lobes consistent with bilateral pneumonia. The infiltrates are typical for Covid 19. No evidence of pulmonary embolus. CT abdomen and pelvis: IMPRESSION: 1. Scattered hepatic hypodense lesions, too small to characterize on this examination without intravenous contrast. 2. Colonic diverticulosis without evidence of acute diverticulitis. 3. Scattered enlarged mesenteric lymph nodes, presumably reactive. teral pneumonia. The infiltrates are typical for Covid 19. No evidence of pulmonary embolus. Chest x-ray - 12/19/19 - Indication: Shortness of breath Technique: One view of the chest Comparison: 02/17/2020 Findings: Interim worsening of bilateral infiltrates, particularly on the right. The heart is borderline enlarged. The pleural spaces are clear. Left arm PICC is again demonstrated Impression: Worsening bilateral infiltrates over one day, likely pneumonia CT chest - 02/19/20 - IMPRESSION: Increased extensive patchy ground-glass opacities and densities throughout the lungs, suggestive of Covid 19 infection. Chest x-ray 02/23/20 - Procedure: XRAY Chest 1v As Indication: Reason For Exam: INFECT Technique: One view of the chest Comparison: 02/20/2020 Findings: Allowing for differences in exposure technique, bilateral mid and lower lung infiltrates are probably unchanged. The heart size is normal. The pleural spaces are clear. Impression: Unchanged, over 4 days, findings as above. Chest x-ray - 02/25/20 - FINDINGS: Lungs: Interval slightly worsening bilateral airspace disease. Pleural space: Unremarkable. No pneumothorax. Heart: Unremarkable. No cardiomegaly. Mediastinum: Unremarkable. Bones/joints: Unremarkable. IMPRESSION: Interval slightly worsening bilateral airspace disease. Chest x-ray - 03/02/20 - Procedure: XRAY Chest 1v Indication: Shortness of breath Technique: One view of the chest Comparison: 02/25/2020 Findings: Bilateral interstitial and airspace infiltrates are unchanged. The heart size is normal. Left arm PICC is again demonstrated Impression: Unchanged, over one day, findings as above. Chest x-ray - 03/06/20 - Procedure: XRAY Chest 1v Indication: Shortness of breath Technique: One view of the chest Comparison: 03/02/2020 Findings: Bilateral infiltrates are unchanged. Normal heart size. Pleural spaces are clear Chest x-ray - 03/12/10 - Impression: COMPARISON: Chest radiograph March 06, 2020. FINDINGS/IMPRESSION: Improving basilar infiltrates. Follow chest radiograph recommended. The upper lung finley are clear. No pneumothorax. Stable cardiomegaly. Stable left upper extremity PICC line. anged, over 4 days, findings as above. Chest x-ray - 03/17/20 - Procedure: XRAY Chest 1v Indication: Shortness of breath Technique: One view of the chest Comparison: 03/12/2020 Findings: Left arm PICC is again demonstrated. Infiltrates are unchanged. The heart size is upper limits of normal. Impression: Unchanged, over 5 days, findings as above. Abdominal US - IMPRESSION: 1. Gallbladder is normal. 2. Hepatic steatosis. 3. 1.7 cm cyst right kidney. Impression. Microbiology Date/Time Source Procedure Growth Status 03/12/20 05:30 Blood Blood Culture - Preliminary NO GROWTH AFTER 4 DAYS Resulted 02/17/20 19:00 Urine,Clean Catch Urine Culture - Final NO GROWTH AFTER 48 HOURS Complete 02/10/20 06:30 Nasopharynx SARS-CoV-2 RdRp Gene Assay - Final Complete Laboratory Tests Test 03/16/20 20:42 03/16/20 23:13 03/17/20 04:10 03/17/20 05:22 POC Whole Blood Glucose 166 MG/DL (74-106) H 159 MG/DL (74-106) H 195 MG/DL (74-106) H White Blood Count 12.4 K/UL (4.8-10.8) H Red Blood Count 4.28 M/UL (4.70-6.10) L Hemoglobin 12.9 G/DL (14.2-18.0) L Hematocrit 43.0 % (42.0-52.0) Mean Corpuscular Volume 100 FL (80-99) #H Mean Corpuscular Hemoglobin 30.0 PG (27.0-31.0) Mean Corpuscular Hemoglobin Concent 29.9 G/DL (32.0-36.0) L Red Cell Distribution Width 14.8 % (11.6-14.8) Platelet Count 193 K/UL (150-450) Mean Platelet Volume 7.8 FL (6.5-10.1) Neutrophils (%) (Auto) % (45.0-75.0) Lymphocytes (%) (Auto) % (20.0-45.0) Monocytes (%) (Auto) % (1.0-10.0) Eosinophils (%) (Auto) % (0.0-3.0) Basophils (%) (Auto) % (0.0-2.0) Differential Total Cells Counted 100 Neutrophils % (Manual) 96 % (45-75) H Lymphocytes % (Manual) 3 % (20-45) L Monocytes % (Manual) 1 % (1-10) Eosinophils % (Manual) 0 % (0-3) Basophils % (Manual) 0 % (0-2) Band Neutrophils 0 % (0-8) Platelet Estimate Adequate Platelet Morphology Normal Anisocytosis 1+ Test 03/17/20 08:25 03/17/20 11:22 03/17/20 17:31 White Blood Count 19.5 K/UL (4.8-10.8) #H Red Blood Count 5.09 M/UL (4.70-6.10) Hemoglobin 14.3 G/DL (14.2-18.0) Hematocrit 44.4 % (42.0-52.0) Mean Corpuscular Volume 87 FL (80-99) # Mean Corpuscular Hemoglobin 28.2 PG (27.0-31.0) Mean Corpuscular Hemoglobin Concent 32.3 G/DL (32.0-36.0) Red Cell Distribution Width 14.1 % (11.6-14.8) Platelet Count 256 K/UL (150-450) Mean Platelet Volume 7.9 FL (6.5-10.1) Neutrophils (%) (Auto) % (45.0-75.0) Lymphocytes (%) (Auto) % (20.0-45.0) Monocytes (%) (Auto) % (1.0-10.0) Eosinophils (%) (Auto) % (0.0-3.0) Basophils (%) (Auto) % (0.0-2.0) Differential Total Cells Counted 100 Neutrophils % (Manual) 85 % (45-75) H Lymphocytes % (Manual) 11 % (20-45) L Monocytes % (Manual) 4 % (1-10) Eosinophils % (Manual) 0 % (0-3) Basophils % (Manual) 0 % (0-2) Band Neutrophils 0 % (0-8) Platelet Estimate Adequate Platelet Morphology Normal Anisocytosis 1+ Sodium Level 131 MMOL/L (136-145) L Potassium Level 4.8 MMOL/L (3.5-5.1) Chloride Level 95 MMOL/L (98-107) L Carbon Dioxide Level 23 MMOL/L (21-32) Anion Gap 13 mmol/L (5-15) Blood Urea Nitrogen 22 mg/dL (7-18) H Creatinine 1.0 MG/DL (0.55-1.30) Estimat Glomerular Filtration Rate > 60 mL/min (>60) Glucose Level 250 MG/DL (74-106) H Calcium Level 8.8 MG/DL (8.5-10.1) Phosphorus Level 4.0 MG/DL (2.5-4.9) Magnesium Level 2.4 MG/DL (1.8-2.4) Total Bilirubin 2.1 MG/DL (0.2-1.0) H Direct Bilirubin 1.6 MG/DL (0.0-0.3) H Aspartate Amino Transf (AST/SGOT) 114 U/L (15-37) H Alanine Aminotransferase (ALT/SGPT) 290 U/L (12-78) H Alkaline Phosphatase 173 U/L (46-116) H C-Reactive Protein, Quantitative 0.6 mg/dL (0.00-0.90) Pro-B-Type Natriuretic Peptide 367 pg/mL (0-125) H Total Protein 6.3 G/DL (6.4-8.2) L Albumin 2.4 G/DL (3.4-5.0) L Globulin 3.9 g/dL Albumin/Globulin Ratio 0.6 (1.0-2.7) L POC Whole Blood Glucose 297 MG/DL (74-106) H 268 MG/DL (74-106) H Current Medications Medications (Trade) Dose Ordered Sig/Dennis Route PRN Reason Start Time Stop Time Status Last Admin Dose Admin Acetaminophen (Tylenol) 650 mg Q4H PRN ORAL Mild Pain (Pain Scale 1-3) 03/09/20 12:00 04/08/20 11:59 Bisacodyl (Dulcolax) 10 mg HSPRN PRN RECTAL Constipation 02/05/20 13:15 05/05/20 13:14 Chlorhexidine Gluconate (Marlen-Hex 2%) 1 applic DAILY@1999 TOPIC 02/14/20 20:00 05/14/20 19:59 03/16/20 20:04 Clonidine HCl (Catapres TTS-1) 1 patch QWEEK TDERMAL 03/09/20 21:00 06/07/20 20:59 03/16/20 20:27 Dextrose 1,000 ml @ 0 mls/hr Q24H PRN IV PN interrupted or unavailable 03/09/20 20:00 04/08/20 19:59 Dextrose (Dextrose 50%) 25 ml Q30M PRN IV Hypoglycemia 03/10/20 00:00 06/08/20 00:00 Dextrose (Dextrose 50%) 50 ml Q30M PRN IV Hypoglycemia 03/10/20 00:00 06/08/20 00:00 Enoxaparin Sodium (Lovenox) 40 mg DAILY SUBQ 03/13/20 12:00 06/11/20 11:59 03/17/20 09:02 Fat Emulsion Intravenous 192 ml/Amino Acids/ Electrolytes/ Dextrose 1,992 ml @ 83 mls/hr Q24H IV 03/17/20 20:00 04/16/20 19:59 Fat Emulsion Intravenous 216 ml/Amino Acids/ Electrolytes/ Dextrose 2,016 ml @ 84 mls/hr Q24H IV 03/15/20 20:00 03/17/20 19:59 03/16/20 20:05 Hydralazine HCl (Apresoline) 10 mg Q6H PRN IV For High Blood Pressure 03/09/20 17:00 06/07/20 16:59 03/17/20 09:28 Insulin Aspart (NovoLOG) Q6HR SUBQ 03/10/20 00:00 06/08/20 00:00 03/17/20 11:33 Insulin Detemir (Levemir) 18 units Q12HR SUBQ 03/14/20 21:00 06/10/20 20:59 03/17/20 09:03 Lactulose (Cephulac) 20 gm THREE TIMES A DAY ORAL 03/08/20 13:00 04/07/20 12:59 03/17/20 09:00 Methylprednisolone Sodium Succinate (Solu-MEDROL) 40 mg EVERY 8 HOURS IVP 03/07/20 18:58 06/05/20 18:57 03/17/20 13:09 Pantoprazole (Protonix) 40 mg EVERY 12 HOURS IVP 03/12/20 21:00 04/11/20 20:59 03/17/20 09:01 Polyethylene Glycol (Miralax) 17 gm BEDTIME ORAL 03/08/20 21:00 04/07/20 20:59 03/10/20 20:33 Promethazine HCl/ Codeine (Phenergan with Codeine) 5 ml Q4H PRN ORAL For Cough 02/22/20 12:15 03/23/20 12:14 03/12/20 09:00 Trimethoprim/ Sulfamethoxazole 20 ml/Dextrose 570 ml @ 380 mls/hr [id number] BACTRIM IV 03/14/20 00:00 03/21/20 00:00 03/17/20 15:59 Vitamin D (Vitamin D) 5,000 unit DAILY ORAL 03/15/20 09:00 04/14/20 08:59 03/17/20 09:01 Kisha Salazar MD Mar 17, 2020 17:54
--- NOTE | 2020-03-17 18:36 | Cardiology Progress Note ---
Assessment/Plan Assessment/Plan Acute covid 19 pneumonia chest pain possible M/S infiltrate bilat bacteremia drug free for 28 years his of ivda hypernatremia mild abn lfts on bipap echo normal wall motion before hypoxemia unlikely cardiac related ct of the chest done most recently showed extensive infiltrate felt to be due to worsening covid 19 infection off anticoagulation continue supportive care remain on bipap saturating ok at rest sat 92-96% bp is ok,on tts patch and iv hydralazine ekg and trop all ok on repeat in the past few day echo reviewed afew days ago showed still normal radha function no valvular dysfunction cxr stabl bialtarel infiltrate per radiologist Subjective Subjective pt now in covid 19 isolation per rn: on Bipap with current settings. 20/12 RR:14, 100%. Alarms are on and audible. Pt refused foam tape. No facial wounds found. No SOB noted at this time. Will cont inue to monitor. Objective Last 24 Hour Vital Signs Date Time Temp Pulse Resp B/P (MAP) Pulse Ox O2 Delivery O2 Flow Rate FiO2 03/17/20 16:00 96 03/17/20 16:00 96.6 125 28 128/104 (112) 92 03/17/20 16:00 Bi-pap 100.0 Bi-pap 03/17/20 16:00 100 03/17/20 15:17 101 34 96 100 03/17/20 12:00 100 03/17/20 12:00 Bi-pap 100.0 Bi-pap 03/17/20 11:36 107 03/17/20 11:27 96.8 97 25 143/82 (102) 95 03/17/20 11:10 101 31 95 100 03/17/20 09:28 152/102 03/17/20 08:00 Bi-pap 100.0 Bi-pap 03/17/20 08:00 100 03/17/20 08:00 97.7 109 33 152/102 (119) 91 03/17/20 08:00 84 03/17/20 06:25 114 17 94 100 03/17/20 04:00 96.4 91 24 130/90 (103) 95 03/17/20 04:00 Bi-pap 100.0 Bi-pap 03/17/20 04:00 100 03/17/20 03:47 104 03/17/20 02:56 84 22 94 100 03/17/20 00:00 97.5 91 19 137/93 (108) 96 03/17/20 00:00 Bi-pap 100.0 Bi-pap 03/16/20 23:49 85 03/16/20 22:53 113 30 91 100 03/16/20 20:27 140/93 03/16/20 20:00 92 03/16/20 20:00 Bi-pap 100.0 Bi-pap 03/16/20 20:00 100 03/16/20 20:00 97.3 91 28 140/93 (109) 95 03/16/20 18:52 91 27 94 100 Intake and Output 03/16/20 03/17/20 19:00 07:00 Intake Total 900 ml 1242 ml Output Total 1200 ml 1150 ml Balance -300 ml 92 ml IV Total 1242 ml Other 900 ml Output Urine Total 1200 ml 1150 ml Laboratory Tests Test 03/16/20 20:42 03/16/20 23:13 03/17/20 04:10 03/17/20 05:22 POC Whole Blood Glucose 166 MG/DL (74-106) H 159 MG/DL (74-106) H 195 MG/DL (74-106) H White Blood Count 12.4 K/UL (4.8-10.8) H Red Blood Count 4.28 M/UL (4.70-6.10) L Hemoglobin 12.9 G/DL (14.2-18.0) L Hematocrit 43.0 % (42.0-52.0) Mean Corpuscular Volume 100 FL (80-99) #H Mean Corpuscular Hemoglobin 30.0 PG (27.0-31.0) Mean Corpuscular Hemoglobin Concent 29.9 G/DL (32.0-36.0) L Red Cell Distribution Width 14.8 % (11.6-14.8) Platelet Count 193 K/UL (150-450) Mean Platelet Volume 7.8 FL (6.5-10.1) Neutrophils (%) (Auto) % (45.0-75.0) Lymphocytes (%) (Auto) % (20.0-45.0) Monocytes (%) (Auto) % (1.0-10.0) Eosinophils (%) (Auto) % (0.0-3.0) Basophils (%) (Auto) % (0.0-2.0) Differential Total Cells Counted 100 Neutrophils % (Manual) 96 % (45-75) H Lymphocytes % (Manual) 3 % (20-45) L Monocytes % (Manual) 1 % (1-10) Eosinophils % (Manual) 0 % (0-3) Basophils % (Manual) 0 % (0-2) Band Neutrophils 0 % (0-8) Platelet Estimate Adequate Platelet Morphology Normal Anisocytosis 1+ Test 03/17/20 08:25 03/17/20 11:22 03/17/20 17:31 White Blood Count 19.5 K/UL (4.8-10.8) #H Red Blood Count 5.09 M/UL (4.70-6.10) Hemoglobin 14.3 G/DL (14.2-18.0) Hematocrit 44.4 % (42.0-52.0) Mean Corpuscular Volume 87 FL (80-99) # Mean Corpuscular Hemoglobin 28.2 PG (27.0-31.0) Mean Corpuscular Hemoglobin Concent 32.3 G/DL (32.0-36.0) Red Cell Distribution Width 14.1 % (11.6-14.8) Platelet Count 256 K/UL (150-450) Mean Platelet Volume 7.9 FL (6.5-10.1) Neutrophils (%) (Auto) % (45.0-75.0) Lymphocytes (%) (Auto) % (20.0-45.0) Monocytes (%) (Auto) % (1.0-10.0) Eosinophils (%) (Auto) % (0.0-3.0) Basophils (%) (Auto) % (0.0-2.0) Differential Total Cells Counted 100 Neutrophils % (Manual) 85 % (45-75) H Lymphocytes % (Manual) 11 % (20-45) L Monocytes % (Manual) 4 % (1-10) Eosinophils % (Manual) 0 % (0-3) Basophils % (Manual) 0 % (0-2) Band Neutrophils 0 % (0-8) Platelet Estimate Adequate Platelet Morphology Normal Anisocytosis 1+ Sodium Level 131 MMOL/L (136-145) L Potassium Level 4.8 MMOL/L (3.5-5.1) Chloride Level 95 MMOL/L (98-107) L Carbon Dioxide Level 23 MMOL/L (21-32) Anion Gap 13 mmol/L (5-15) Blood Urea Nitrogen 22 mg/dL (7-18) H Creatinine 1.0 MG/DL (0.55-1.30) Estimat Glomerular Filtration Rate > 60 mL/min (>60) Glucose Level 250 MG/DL (74-106) H Calcium Level 8.8 MG/DL (8.5-10.1) Phosphorus Level 4.0 MG/DL (2.5-4.9) Magnesium Level 2.4 MG/DL (1.8-2.4) Total Bilirubin 2.1 MG/DL (0.2-1.0) H Direct Bilirubin 1.6 MG/DL (0.0-0.3) H Aspartate Amino Transf (AST/SGOT) 114 U/L (15-37) H Alanine Aminotransferase (ALT/SGPT) 290 U/L (12-78) H Alkaline Phosphatase 173 U/L (46-116) H C-Reactive Protein, Quantitative 0.6 mg/dL (0.00-0.90) Pro-B-Type Natriuretic Peptide 367 pg/mL (0-125) H Total Protein 6.3 G/DL (6.4-8.2) L Albumin 2.4 G/DL (3.4-5.0) L Globulin 3.9 g/dL Albumin/Globulin Ratio 0.6 (1.0-2.7) L POC Whole Blood Glucose 297 MG/DL (74-106) H 268 MG/DL (74-106) H Objective pt in covid 19 isoaltion with acute infection per id Respiratory/Chest: crackles/rales, rhonchi - bilaterally Cardiovascular: normal rate, regular rhythm, no gallop/murmur, no JVD Abdomen: normal bowel sounds, soft, non tender, no organomegaly, non distended Genitourinary: other - no joseph Extremities: no cyanosis Skin: no rash Manan Awan MD Mar 17, 2020 18:36
--- NOTE | 2020-03-17 19:20 | NUR ---
NURSE HAND-OFF REPORT: Important Events on Shift: Patient Status: alert, fatigued Diet: TPN 84cc/hr Pending Orders: Pending Results/Labs:blood culture, hepatitis panel, urine reflex microscopy Pending MD notification: Latest Vital Signs: Temperature 96.6 , Pulse 96 , B/P 128 /104 , Respiratory Rate 28 , O2 SAT 92 , Room Air, O2 Flow Rate 100.0 . Vital Sign Comment: EKG Rhythm: Sinus Rhythm Rhythm change?: N MD Notified?: MD Response: Latest Hassan Fall Score: 45 Fall Risk: High Risk Safety Measures: Call light Within Reach, Bed Alarm Zone 1, Side Rails Side Rails x2, Bed position Low and Locked. Fall Precautions: Yellow Socks Yellow Gown Door Sign Patient Fall Education Report given to Divina MATHEW.
--- NOTE | 2020-03-17 19:30 | NUR ---
NURSE NOTES: Received pt and report from PRIYANKA Tsang. Observed pt resting in bed with both eyes open. Pt is A/Ox4, passive. environmental monitoring technician is in placed; pt is NSR. Pt has a double lumen PICC line. Intact, asymptomatic, and patent; running Intralipids in TPN @ 84ml/hr. New order of Intralipids in TPN scheduled for 1999 @ 83ml/hr. Pt is on BiPAP 20/10, 100% FiO2; sating at 97%. Bed is in the lowest position and locked. Call light and bedside table is within reach. No signs/symptoms of acute distress noted. Will continue plan of care.
[2020-03-17 20:00] VITALS: BP 130/95
[2020-03-17] MEDS: Dyna-Hex 2% Top Sol 2oz TOPIC SCH (20:07)
[2020-03-17] MEDS: TPN IV SCH (20:10)
[2020-03-17] MEDS: FAT EMULSION 20% IV SCH (20:10)
--- NOTE | 2020-03-17 20:10 | NUR ---
NURSE NOTES: Began new bag of Intralipids 192ml in TPN 1,800ml @ 83ml/hr. Will check pt's BS shortly.
[2020-03-17] MEDS: Miralax 17gm pkt ORAL SCH (21:24)
[2020-03-18] VITALS: BP 143/87
[2020-03-18] MEDS: Bactrim 20ml in D5W 550ml IV SCH ×4 (00:04→23:04)
[2020-03-18] MEDS: NovoLOG Insulin Flexpen SUBQ SCH ×5 (00:17→23:15)
--- NOTE | 2020-03-18 01:18 | NUR ---
NURSE NOTES: Observed pt resting in bed with both eyes closed. No acute respiratory distress noted. Will continue plan of care.
[2020-03-18 04:00] VITALS: BP 134/80
[2020-03-18] MEDS: Solu-MEDROL 40mg Inj IVP SCH ×3 (05:54→20:07)
--- NOTE | 2020-03-18 06:00 | NUR ---
NURSE NOTES: Urine collected and sent to lab.
--- NOTE | 2020-03-18 07:22 | NUR ---
NURSE HAND-OFF REPORT: Important Events on Shift: Pt continues to be on BiPAP 20/10, FiO2 100%; sating at 94%. No distress noted. TPN running @ 83ml/hr. Patient Status: Stable Diet: NPO, TPN Pending Orders: N Pending Results/Labs: AM Labs Pending MD notification: N Latest Vital Signs: Temperature 97.3 , Pulse 89 , B/P 134 /80 , Respiratory Rate 24 , O2 SAT 94 , Room Air, O2 Flow Rate 100.0 . EKG Rhythm: Sinus Rhythm Rhythm change?: N Latest Hassan Fall Score: 45 Fall Risk: High Risk Safety Measures: Call light Within Reach, Bed Alarm Zone 1, Side Rails Side Rails x2, Bed position Low and Locked. Fall Precautions: Yellow Socks Yellow Gown Door Sign Patient Fall Education Report given to PRIYANKA Saez.
--- NOTE | 2020-03-18 07:29 | NUR ---
NURSE NOTES: Received report from PRIYANKA Murcia. Pt is AOx4, stable and resting in bed. Pt is fatigued and sleeping, woke up when I entered the room. Requesting oral care later with RT, noted. Pt has no s/s or complaint of distress at this time. pt is on Bipap 20/10 fio2 100% saturating 94 %spo2. Pt sacral stage 1, redness noted. WAYNE PICC double lumen running TPN. Pt bed low and locked, call light in reach and bed alarm on. pt verbalized understanding of call light.
[2020-03-18 07:32] LABS: HEMATOCRIT 41.8 % (42.0-52.0); HEMOGLOBIN 13.4 G/DL (14.2-18.0); MEAN CORPUSCULAR VOLUME 86 FL (80-99); PLATELET COUNT 232 K/UL (150-450); RED BLOOD COUNT 4.88 M/UL (4.70-6.10); RED CELL DISTRIBUTION WIDTH 14.1 % (11.6-14.8); WHITE BLOOD COUNT 11.3 K/UL (4.8-10.8)
[2020-03-18 07:45] LABS: APPEARANCE,URINE VERY CLOUDY; BILIRUBIN, URINE NEGATIVE (NEGATIVE); GLUCOSE, URINE (UA) 3+ (NEGATIVE); KETONES,URINE NEGATIVE (NEGATIVE); LEUKOCYTE ESTERASE ,URINE 1+ (NEGATIVE); NITRITE,URINE NEGATIVE (NEGATIVE); PH,URINE 6 (4.5-8.0); PROTEIN,URINE 1+ (NEGATIVE); UROBILINOGEN,URINE 4 MG/DL (0.0-1.0)
[2020-03-18 07:56] LABS: COLOR,URINE YELLOW
[2020-03-18 08:00] VITALS: BP 149/85
[2020-03-18 08:19] LABS: PHOSPHORUS 3.3 MG/DL (2.5-4.9)
[2020-03-18 08:21] LABS: ALANINE AMINOTRANSFERASE 285 U/L (12-78); ALBUMIN 2.3 G/DL (3.4-5.0); ALBUMIN/GLOBULIN RATIO 0.6 (1.0-2.7); ALKALINE PHOSPHATASE 154 U/L (46-116); ANION GAP 4 mmol/L (5-15); ASPARTATE AMINO TRANSFERASE 80 U/L (15-37); BILIRUBIN,TOTAL 1.3 MG/DL (0.2-1.0); BLOOD UREA NITROGEN 22 mg/dL (7-18); CALCIUM 8.4 MG/DL (8.5-10.1); CARBON DIOXIDE 31 MMOL/L (21-32); CHLORIDE 96 MMOL/L (98-107); CREATININE 0.6 MG/DL (0.55-1.30); POTASSIUM 4.2 MMOL/L (3.5-5.1); SODIUM 131 MMOL/L (136-145)
[2020-03-18 08:22] LABS: BILIRUBIN,DIRECT 0.8 MG/DL (0.0-0.3)
[2020-03-18] MEDS: Pantoprazole Inj IVP SCH ×2 (08:29→20:07)
[2020-03-18] MEDS: Enoxaparin 40mg Inj SUBQ SCH (08:31)
[2020-03-18] MEDS: Lactulose 20gm/30ml UDC ORAL SCH ×3 (08:31→15:01)
[2020-03-18] MEDS: Levemir Flexpen SUBQ SCH ×2 (08:31→20:58)
[2020-03-18] MEDS: Vitamin D 1000 units Tab ORAL SCH (08:31)
[2020-03-18 12:00] VITALS: BP 126/74
--- NOTE | 2020-03-18 12:00 | NUR ---
NURSE NOTES: Pt oral care done at this time. Pt able to tolerate better compared to previously. Oral moisturizer and mouthwash used. Face cleaned. partial bed bath, Pt refused the rest. Condom catheter emptied 600cc dark yellow urine. RT bedside at this time, Jacinto assisting Pt.
--- NOTE | 2020-03-18 14:36 | Cardiology Progress Note ---
Assessment/Plan Problem List: (1) Hypertension (2) COVID-19 virus infection (3) Staphylococcus aureus bacteremia (4) Chest pain (5) Pneumonia Status: stable, unchanged Status Narrative Respiratory status slowly improving, though pt remains on bipap vent Pt COVID +, and had MSSA bacteremia ( 02/06) and 1 + bld culture for bacillus species on 03/03. WBC decreasing and pt afebrile. BP is controlled and HR improved Assessment/Plan Continue bipap support, steroids and bactrim per ID On lasix - monitor i/os, renal function Now on clonidine patch for HTN Subjective ROS Limited/Unobtainable: No Subjective Cardiology for Dr. Awan Mr Mychal remains on bipap vent. He remains on COVID isolation Events noted. Objective Last 24 Hour Vital Signs Date Time Temp Pulse Resp B/P (MAP) Pulse Ox O2 Delivery O2 Flow Rate FiO2 03/18/20 12:00 100 03/18/20 12:00 Bi-pap 100.0 Bi-pap 03/18/20 12:00 93 03/18/20 12:00 97.7 94 29 126/74 (91) 94 03/18/20 08:00 77 03/18/20 08:00 Bi-pap 100.0 Bi-pap 03/18/20 08:00 97.7 81 24 149/85 (106) 95 03/18/20 08:00 100 03/18/20 04:00 100 03/18/20 04:00 83 03/18/20 04:00 97.3 89 24 134/80 (98) 94 03/18/20 04:00 Bi-pap 100.0 Bi-pap 03/18/20 03:02 87 28 92 100 03/18/20 00:00 100 03/18/20 00:00 98.0 82 22 143/87 (105) 96 03/18/20 00:00 84 03/18/20 00:00 Bi-pap 100.0 Bi-pap 03/17/20 20:00 Bi-pap 100.0 Bi-pap 03/17/20 20:00 98.2 88 24 130/95 (107) 96 03/17/20 20:00 100 03/17/20 20:00 84 03/17/20 19:58 110 32 94 100 03/17/20 16:00 96 03/17/20 16:00 96.6 125 28 128/104 (112) 92 03/17/20 16:00 Bi-pap 100.0 Bi-pap 03/17/20 16:00 100 03/17/20 15:17 101 34 96 100 General Appearance: WD/WN, alert, other - on bipap mask Intake and Output 03/17/20 03/18/20 19:00 07:00 Intake Total 2232 ml 913 ml Output Total 1100 ml 1500 ml Balance 1132 ml -587 ml Intake Oral 0 ml IV Total 2232 ml 913 ml Output Urine Total 1100 ml 1500 ml Laboratory Tests Test 03/17/20 17:31 03/17/20 18:30 03/17/20 21:31 03/18/20 00:06 POC Whole Blood Glucose 268 MG/DL (74-106) H Pending Pending Hepatitis A IgM Antibody Negative (Negative) Hepatitis B Surface Antigen Negative (Negative) Hepatitis B Core IgM Antibody Negative (Negative) Hepatitis C Antibody >11.0 s/co ratio Test 03/18/20 05:58 03/18/20 06:15 03/18/20 11:32 POC Whole Blood Glucose Pending 196 MG/DL (74-106) H White Blood Count 11.3 K/UL (4.8-10.8) H Red Blood Count 4.88 M/UL (4.70-6.10) Hemoglobin 13.4 G/DL (14.2-18.0) L Hematocrit 41.8 % (42.0-52.0) L Mean Corpuscular Volume 86 FL (80-99) Mean Corpuscular Hemoglobin 27.4 PG (27.0-31.0) Mean Corpuscular Hemoglobin Concent 31.9 G/DL (32.0-36.0) L Red Cell Distribution Width 14.1 % (11.6-14.8) Platelet Count 232 K/UL (150-450) Mean Platelet Volume 8.4 FL (6.5-10.1) Neutrophils (%) (Auto) % (45.0-75.0) Lymphocytes (%) (Auto) % (20.0-45.0) Monocytes (%) (Auto) % (1.0-10.0) Eosinophils (%) (Auto) % (0.0-3.0) Basophils (%) (Auto) % (0.0-2.0) Differential Total Cells Counted 100 Neutrophils % (Manual) 95 % (45-75) H Lymphocytes % (Manual) 2 % (20-45) L Monocytes % (Manual) 3 % (1-10) Eosinophils % (Manual) 0 % (0-3) Basophils % (Manual) 0 % (0-2) Band Neutrophils 0 % (0-8) Platelet Estimate Adequate Platelet Morphology Normal Anisocytosis 1+ Urine Color Yellow Urine Appearance Very cloudy Urine pH 6 (4.5-8.0) Urine Specific [place] 1.020 (1.005-1.035) Urine Protein 1+ (NEGATIVE) H Urine Glucose (UA) 3+ (NEGATIVE) H Urine Ketones Negative (NEGATIVE) Urine Blood 3+ (NEGATIVE) H Urine Nitrite Negative (NEGATIVE) Urine Bilirubin Negative (NEGATIVE) Urine Urobilinogen 4 MG/DL (0.0-1.0) H Urine Leukocyte Esterase 1+ (NEGATIVE) H Urine RBC 5-10 /HPF (0 - 0) H Urine WBC 0-2 /HPF (0 - 0) Urine Squamous Epithelial Cells Occasional /LPF Urine Bacteria Many /HPF (NONE) H Urine Yeast Few /HPF (NONE) H Sodium Level 131 MMOL/L (136-145) L Potassium Level 4.2 MMOL/L (3.5-5.1) Chloride Level 96 MMOL/L (98-107) L Carbon Dioxide Level 31 MMOL/L (21-32) Anion Gap 4 mmol/L (5-15) L Blood Urea Nitrogen 22 mg/dL (7-18) H Creatinine 0.6 MG/DL (0.55-1.30) Estimat Glomerular Filtration Rate > 60 mL/min (>60) Glucose Level 168 MG/DL (74-106) H Uric Acid 1.5 MG/DL (2.6-7.2) L Calcium Level 8.4 MG/DL (8.5-10.1) L Phosphorus Level 3.3 MG/DL (2.5-4.9) Magnesium Level 2.1 MG/DL (1.8-2.4) Total Bilirubin 1.3 MG/DL (0.2-1.0) H Direct Bilirubin 0.8 MG/DL (0.0-0.3) H Aspartate Amino Transf (AST/SGOT) 80 U/L (15-37) H Alanine Aminotransferase (ALT/SGPT) 285 U/L (12-78) H Alkaline Phosphatase 154 U/L (46-116) H C-Reactive Protein, Quantitative < 0.4 mg/dL (0.00-0.90) Total Protein 6.0 G/DL (6.4-8.2) L Albumin 2.3 G/DL (3.4-5.0) L Globulin 3.7 g/dL Albumin/Globulin Ratio 0.6 (1.0-2.7) L Lily Rene MD Mar 18, 2020 14:36
--- NOTE | 2020-03-18 14:51 | Nephrology Progress Note ---
Assessment/Plan Problem List: (1) Dehydration (2) Electrolyte imbalance (3) COVID-19 virus infection (4) Pneumonia (5) DMII (diabetes mellitus, type 2) (6) Protein malnutrition Assessment Azotemia, hypernatremia Hypoalbuminemia Staff Otilia bacteremia COVID-19 isolation, pneumonia, bilateral infiltrate Hypertension Diabetes mellitus History of smoking Plan March 18: Remains on TPN. Labs reviewed. Discussed with pharmacist. Will give 3 doses of IV Lasix 20 mg every 8 hours. Continue to monitor serum sodium electrolytes uric acid. White blood cells down. Continue per consultants. March 17: On TPN. Labs reviewed. Discussed with pharmacist. Sodium content increase. Continue to monitor CMP. Patient continues to have leukocytosis. March 16: On TPN. Labs reviewed. Discussed with pharmacist. Appropriate changes made. Continue to monitor electrolytes. March 15: Remains on TPN. Labs reviewed. Discussed with pharmacist. Continue per current management. March 14: Remains on TPN. Labs reviewed, stable. Vitamin D level low, replacement ordered. Continue to monitor electrolytes and renal parameters. March 13: Patient remains on TPN. Discussed with pharmacist. TPN's sodium content adjusted. Labs reviewed. Continue to monitor electrolytes. Blood pressure remains stable. Continue per consultants. March 12: Patient on TPN. Labs reviewed. CPK remains elevated. Abnormal electrolytes and high blood sugar discussed with pharmacist and TPN adjusted. Continue to monitor labs. Oral Protonix added. Ibuprofen discontinued. Can continue to monitor electrolytes and chemistries. Levemir for high blood sugar added. March 11: Patient on TPN. Labs as of 11:15 AM is still pending. Continue per current treatment plan. Will check labs and adjust TPN as needed. Continue per consultants. March 10: Patient on TPN. Labs reviewed. Electrolytes overall stable. CPK is elevated. Will monitor electrolyte, CPK level, lipid panel. Continue per consultants. Discussed with pharmacist. Discussed with RN. Nutritional evaluation noted. Previously: D5W 100 cc an hour Monitor electrolytes renal parameters TPN and Intralipid ordered Will follow Continue per consultants Dietary consult requested Subjective ROS Limited/Unobtainable: Yes Objective Objective Last 24 Hour Vital Signs Date Time Temp Pulse Resp B/P (MAP) Pulse Ox O2 Delivery O2 Flow Rate FiO2 03/18/20 12:00 100 03/18/20 12:00 Bi-pap 100.0 Bi-pap 1/16/21 12:00 93 03/18/20 12:00 97.7 94 29 126/74 (91) 94 03/18/20 08:00 77 03/18/20 08:00 Bi-pap 100.0 Bi-pap 03/18/20 08:00 97.7 81 24 149/85 (106) 95 03/18/20 08:00 100 03/18/20 04:00 100 03/18/20 04:00 83 03/18/20 04:00 97.3 89 24 134/80 (98) 94 03/18/20 04:00 Bi-pap 100.0 Bi-pap 03/18/20 03:02 87 28 92 100 03/18/20 00:00 100 03/18/20 00:00 98.0 82 22 143/87 (105) 96 03/18/20 00:00 84 03/18/20 00:00 Bi-pap 100.0 Bi-pap 03/17/20 20:00 Bi-pap 100.0 Bi-pap 03/17/20 20:00 98.2 88 24 130/95 (107) 96 03/17/20 20:00 100 03/17/20 20:00 84 03/17/20 19:58 110 32 94 100 03/17/20 16:00 96 03/17/20 16:00 96.6 125 28 128/104 (112) 92 03/17/20 16:00 Bi-pap 100.0 Bi-pap 03/17/20 16:00 100 03/17/20 15:17 101 34 96 100 Intake and Output 03/17/20 03/18/20 19:00 07:00 Intake Total 2232 ml 913 ml Output Total 1100 ml 1500 ml Balance 1132 ml -587 ml Intake Oral 0 ml IV Total 2232 ml 913 ml Output Urine Total 1100 ml 1500 ml Laboratory Tests 03/17/20 17:31: POC Whole Blood Glucose 268H 03/17/20 18:30: Hepatitis A IgM Antibody Negative, Hepatitis B Surface Antigen Negative, Hepatitis B Core IgM Antibody Negative, Hepatitis C Antibody >11.0H 03/17/20 21:31: POC Whole Blood Glucose [Pending] 03/18/20 00:06: POC Whole Blood Glucose [Pending] 03/18/20 05:58: POC Whole Blood Glucose [Pending] 03/18/20 06:15: White Blood Count 11.3H, Red Blood Count 4.88, Hemoglobin 13.4L, Hematocrit 41.8L, Mean Corpuscular Volume 86, Mean Corpuscular Hemoglobin 27.4, Mean Corpuscular Hemoglobin Concent 31.9L, Red Cell Distribution Width 14.1, Platelet Count 232, Mean Platelet Volume 8.4, Neutrophils (%) (Auto) , Lymphocytes (%) (Auto) , Monocytes (%) (Auto) , Eosinophils (%) (Auto) , Basophils (%) (Auto) , Differential Total Cells Counted 100, Neutrophils % (Manual) 95H, Lymphocytes % (Manual) 2L, Monocytes % (Manual) 3, Eosinophils % (Manual) 0, Basophils % (Manual) 0, Band Neutrophils 0, Platelet Estimate Adequate, Platelet Morphology Normal, Anisocytosis 1+, Urine Color Yellow, Urine Appearance Very cloudy, Urine pH 6, Urine Specific [place] 1.020, Urine Protein 1+H, Urine Glucose (UA) 3+H, Urine Ketones Negative, Urine Blood 3+H, Urine Nitrite Negative, Urine Bilirubin Negative, Urine Urobilinogen 4H, Urine Leukocyte Esterase 1+H, Urine RBC 5-10H, Urine WBC 0-2, Urine Squamous Epithelial Cells Occasional, Urine Bacteria ManyH , Urine Yeast FewH, Sodium Level 131L, Potassium Level 4.2, Chloride Level 96L, Carbon Dioxide Level 31, Anion Gap 4L, Blood Urea Nitrogen 22H, Creatinine 0.6, Estimat Glomerular Filtration Rate > 60, Glucose Level 168H, Uric Acid 1.5L, Calcium Level 8.4L, Phosphorus Level 3.3, Magnesium Level 2.1, Total Bilirubin 1.3H, Direct Bilirubin 0.8H, Aspartate Amino Transf (AST/SGOT) 80H, Alanine Aminotransferase (ALT/SGPT) 285H, Alkaline Phosphatase 154H, C-Reactive Protein, Quantitative < 0.4, Total Protein 6.0L, Albumin 2.3L, Globulin 3.7, Albumin/Globulin Ratio 0.6L 03/18/20 11:32: POC Whole Blood Glucose 196H Height (Feet): 5 Height (Inches): 10.00 Weight (Pounds): 240 General Appearance: mild distress EENT: other - On BiPAP Cardiovascular: tachycardia Respiratory/Chest: decreased breath sounds Abdomen: distended Rubin Cooper MD Mar 18, 2020 14:51
--- NOTE | 2020-03-18 14:52 | Pulmonology Progress Note ---
Subjective ROS Limited/Unobtainable: No Interval Events: tolerating BiPAP; saturating better Constitutional: Reports: fatigue; Denies: fever HEENT: Repors: no symptoms Respiratory: Reports: dry cough, shortness of breath Cardiovascular: Reports: no symptoms Gastrointestinal/Abdominal: Denies: nausea, vomiting, diarrhea Psychiatric: Denies: depression Skin: Denies: rash Musculoskeletal: Denies: pain Allergies: Coded Allergies: No Known Allergies (Unverified , 02/05/20) Objective Last 24 Hour Vital Signs Date Time Temp Pulse Resp B/P (MAP) Pulse Ox O2 Delivery O2 Flow Rate FiO2 03/18/20 12:00 100 03/18/20 12:00 Bi-pap 100.0 Bi-pap 03/18/20 12:00 93 03/18/20 12:00 97.7 94 29 126/74 (91) 94 03/18/20 08:00 77 03/18/20 08:00 Bi-pap 100.0 Bi-pap 03/18/20 08:00 97.7 81 24 149/85 (106) 95 03/18/20 08:00 100 03/18/20 04:00 100 03/18/20 04:00 83 03/18/20 04:00 97.3 89 24 134/80 (98) 94 03/18/20 04:00 Bi-pap 100.0 Bi-pap 03/18/20 03:02 87 28 92 100 03/18/20 00:00 100 03/18/20 00:00 98.0 82 22 143/87 (105) 96 03/18/20 00:00 84 03/18/20 00:00 Bi-pap 100.0 Bi-pap 03/17/20 20:00 Bi-pap 100.0 Bi-pap 03/17/20 20:00 98.2 88 24 130/95 (107) 96 03/17/20 20:00 100 03/17/20 20:00 84 03/17/20 19:58 110 32 94 100 03/17/20 16:00 96 03/17/20 16:00 96.6 125 28 128/104 (112) 92 03/17/20 16:00 Bi-pap 100.0 Bi-pap 03/17/20 16:00 100 03/17/20 15:17 101 34 96 100 Intake and Output 03/17/20 03/18/20 19:00 07:00 Intake Total 2232 ml 913 ml Output Total 1100 ml 1500 ml Balance 1132 ml -587 ml Intake Oral 0 ml IV Total 2232 ml 913 ml Output Urine Total 1100 ml 1500 ml Objective 03/18 saturating at 94-97% on BiPAP 03/17 saturating at 91-92% on the current BiPAP setting 03/08 saturating in the low 90s on BiPAP 03/06 saturating at 85-88% on BiPAP 03/05 saturating 77-88% on BiPAP /2 now saturating at 89-90% on BiPAP 03/03 saturating in the low 80s on BiPAP 02/28 saturating 93% on BiPAP 02/23 saturating 94% on BiPAP 02/22 tolerating BiPAP, saturating at 90% 02/21 now on BiPAP, saturating at 95% 02/18 still on 15L NRB mask saturating 88-93% 02/17 now on 15L NRB mask saturating at 91% 02/17/2020 now on 2 lpm NC 02/16/2020 no change 02/15/2020 no major change 02/14/2020 saturating well on RAD; NAD 02/13/2020 pt asleep; saturating well on RA 02/12/2020 sitting up in a chair; saturating well on RA 02/11/2020 back on isolation due to COVID-19 positive status again; currently being worked up for positive blood culture 02/09/2020 off isolation; saturating well on RA 02/08/2020 feeling better; COVID-19 PCR neg 02/07/2020 reports feeling better; COVID-19 PCR pending 02/06/2020 pt laying in bed; reports feeling better General Appearance: WD/WN, no acute distress HEENT: normocephalic, atraumatic Respiratory: chest wall non-tender Cardiovascular: normal rate, regular rhythm Abdomen: normal bowel sounds, soft, non tender, other - obese Laboratory Tests 03/17/20 17:31: POC Whole Blood Glucose 268H 03/17/20 18:30: Hepatitis A IgM Antibody Negative, Hepatitis B Surface Antigen Negative, Hepatitis B Core IgM Antibody Negative, Hepatitis C Antibody >11.0H 03/17/20 21:31: POC Whole Blood Glucose [Pending] 03/18/20 00:06: POC Whole Blood Glucose [Pending] 03/18/20 05:58: POC Whole Blood Glucose [Pending] 03/18/20 06:15: White Blood Count 11.3H, Red Blood Count 4.88, Hemoglobin 13.4L, Hematocrit 41.8L, Mean Corpuscular Volume 86, Mean Corpuscular Hemoglobin 27.4, Mean Corpuscular Hemoglobin Concent 31.9L, Red Cell Distribution Width 14.1, Platelet Count 232, Mean Platelet Volume 8.4, Neutrophils (%) (Auto) , Lymphocytes (%) (Auto) , Monocytes (%) (Auto) , Eosinophils (%) (Auto) , Basophils (%) (Auto) , Differential Total Cells Counted 100, Neutrophils % (Manual) 95H, Lymphocytes % (Manual) 2L, Monocytes % (Manual) 3, Eosinophils % (Manual) 0, Basophils % (Manual) 0, Band Neutrophils 0, Platelet Estimate Adequate, Platelet Morphology Normal, Anisocytosis 1+, Urine Color Yellow, Urine Appearance Very cloudy, Urine pH 6, Urine Specific [place] 1.020, Urine Protein 1+H, Urine Glucose (UA) 3+H, Urine Ketones Negative, Urine Blood 3+H, Urine Nitrite Negative, Urine Bilirubin Negative, Urine Urobilinogen 4H, Urine Leukocyte Esterase 1+H, Urine RBC 5-10H, Urine WBC 0-2, Urine Squamous Epithelial Cells Occasional, Urine Bacteria ManyH , Urine Yeast FewH, Sodium Level 131L, Potassium Level 4.2, Chloride Level 96L, Carbon Dioxide Level 31, Anion Gap 4L, Blood Urea Nitrogen 22H, Creatinine 0.6, Estimat Glomerular Filtration Rate > 60, Glucose Level 168H, Uric Acid 1.5L, Calcium Level 8.4L, Phosphorus Level 3.3, Magnesium Level 2.1, Total Bilirubin 1.3H, Direct Bilirubin 0.8H, Aspartate Amino Transf (AST/SGOT) 80H, Alanine Aminotransferase (ALT/SGPT) 285H, Alkaline Phosphatase 154H, C-Reactive Protein, Quantitative < 0.4, Total Protein 6.0L, Albumin 2.3L, Globulin 3.7, Albumin/Globulin Ratio 0.6L 03/18/20 11:32: POC Whole Blood Glucose 196H Current Medications Medications (Trade) Dose Ordered Sig/Dennis Route PRN Reason Start Time Stop Time Status Last Admin Dose Admin Acetaminophen (Tylenol) 650 mg Q4H PRN ORAL Mild Pain (Pain Scale 1-3) 03/09/20 12:00 04/08/20 11:59 Bisacodyl (Dulcolax) 10 mg HSPRN PRN RECTAL Constipation 02/05/20 13:15 05/05/20 13:14 Chlorhexidine Gluconate (Marlen-Hex 2%) 1 applic DAILY@2000 TOPIC 02/14/20 20:00 05/14/20 19:59 03/17/20 20:07 Clonidine HCl (Catapres TTS-1) 1 patch QWEEK TDERMAL 03/09/20 21:00 06/07/20 20:59 03/16/20 20:27 Dextrose 1,000 ml @ 0 mls/hr Q24H PRN IV PN interrupted or unavailable 03/09/20 20:00 04/08/20 19:59 Dextrose (Dextrose 50%) 25 ml Q30M PRN IV Hypoglycemia 03/10/20 00:00 06/08/20 00:00 Dextrose (Dextrose 50%) 50 ml Q30M PRN IV Hypoglycemia 03/10/20 00:00 06/08/20 00:00 Enoxaparin Sodium (Lovenox) 40 mg DAILY SUBQ 03/13/20 12:00 06/11/20 11:59 03/18/20 08:31 Fat Emulsion Intravenous 192 ml/Amino Acids/ Electrolytes/ Dextrose 1,992 ml @ 83 mls/hr Q24H IV 03/17/20 20:00 04/16/20 19:59 03/17/20 20:10 Furosemide (Lasix) 20 mg EVERY 8 HOURS IV 03/18/20 14:15 03/19/20 06:01 Hydralazine HCl (Apresoline) 10 mg Q6H PRN IV For High Blood Pressure 03/09/20 17:00 06/07/20 16:59 03/17/20 09:28 Insulin Aspart (NovoLOG) Q6HR SUBQ 03/10/20 00:00 06/08/20 00:00 03/18/20 12:25 Insulin Detemir (Levemir) 18 units Q12HR SUBQ 03/14/20 21:00 06/10/20 20:59 03/18/20 08:31 Lactulose (Cephulac) 20 gm THREE TIMES A DAY ORAL 03/08/20 13:00 04/07/20 12:59 03/17/20 09:00 Methylprednisolone Sodium Succinate (Solu-MEDROL) 40 mg EVERY 8 HOURS IVP 03/07/20 18:58 06/05/20 18:57 03/18/20 05:54 Pantoprazole (Protonix) 40 mg EVERY 12 HOURS IVP 03/12/20 21:00 04/11/20 20:59 03/18/20 08:29 Polyethylene Glycol (Miralax) 17 gm BEDTIME ORAL 03/08/20 21:00 04/07/20 20:59 03/17/20 21:24 Promethazine HCl/ Codeine (Phenergan with Codeine) 5 ml Q4H PRN ORAL For Cough 02/22/20 12:15 03/23/20 12:14 03/12/20 09:00 Trimethoprim/ Sulfamethoxazole 20 ml/Dextrose 570 ml @ 380 mls/hr [id number] BACTRIM IV 03/14/20 00:00 03/21/20 00:00 03/18/20 08:28 Vitamin D (Vitamin D) 5,000 unit DAILY ORAL 03/15/20 09:00 04/14/20 08:59 03/17/20 09:01 Assessment/Plan Assessment/Plan 1.COVID-19 pneumonia. - last COVID-19 test positive after two negative tests - CTA 02/05/2020 ground-glass and consolidating infiltrates in the dependent portions of both lower lobes and to lesser degree the upper lobes consistent with bilateral pneumonia. No evidence of pulmonary embolus. - CXR 02/17/2020 worsening bilateral infiltrates; Repeat CXR shows basilar linear densities - CT chest 02/18 shows Increased extensive patchy ground-glass opacities and densities throughout the lungs, suggestive of Covid 19 infection. - currently on BiPAP. Saturations 90%. - Mycoplasma pneumoniae IgG 273; M. pneumoniae IgM titer within normal limits - D-dimer 0.90; on full dose Lovenox -Discontinued Decadron, now on Solumedrol - s/p remdesivir - is net I/O negative -We will continue TPN He has had a progressive increase in LDH,-started on Bactrim due to concern about pneumocystis. - Looking unchanged today. - CXR 03/17 no significant change 2. Initial negative rapid COVID-19 gene assay.- however repeat COVID-19 test positive 3. Smoker. 4. DVT ppx - on lovenox 5. Hypertension - on hydralazine, and norvasc 6. Blood culture positive for gram positive cocci staph aureus - on Abx - CT abd/pelvis showed no abscess per ID - TTE/ FERNY held off due to COVID-19 status 7. Leukocytosis - ID following The care for this patient was discussed with my supervising physician Time spent for this case was approximately 31 minutes Edilson Marinelli Mar 18, 2020 14:52
[2020-03-18 16:00] VITALS: BP 139/87
--- NOTE | 2020-03-18 16:44 | NUR ---
NURSE NOTES: Pt had no BM since 03/12, notified Dr Barlow of this during rounds. said he would put in orders. f/u with doctor via phone.
--- NOTE | 2020-03-18 18:35 | NUR ---
NURSE HAND-OFF REPORT: Important Events on Shift: oral care Patient Status: fc, stable Diet: tpn at 83cc Pending Orders: Pending Results/Labs: Pending MD notification: Latest Vital Signs: Temperature 97.7 , Pulse 93 , B/P 139 /87 , Respiratory Rate 29 , O2 SAT 93 , Room Air, O2 Flow Rate 100.0 . Vital Sign Comment: EKG Rhythm: Sinus Rhythm Rhythm change?: N MD Notified?: Courtney Paige MD Response: Message left await call Latest Hassan Fall Score: 45 Fall Risk: High Risk Safety Measures: Call light Within Reach, Bed Alarm Zone 1, Side Rails Side Rails x2, Bed position Low and Locked. Fall Precautions: Yellow Socks Yellow Gown Door Sign Patient Fall Education Report to be given. Addendum: 03/18/20 at 1907 by Nadja Castellano RN RN Pt is stable. Report given to PRIYANKA Eubanks
--- NOTE | 2020-03-18 19:13 | NUR ---
NURSE NOTES: Received report from PRIYANKA Saez. Pt is awake, A/Ox4, fatigued. No signs of apparent distress noted. NSR on case monitor, SpO2 92% on BiPAP 20/10 FiO2 100%. TPN running at 83ml/hr through L UA 2x PICC line, asymptomatic, no infiltration noted. HOB elevated, call light within reach, bed alarmed, locked, and in lowest position. Will continue plan of care. Will continue to monitor.
[2020-03-18 19:48] VITALS: BP 154/100
--- NOTE | 2020-03-18 19:51 | General Progress Note ---
Subjective Allergies: Coded Allergies: No Known Allergies (Unverified , 02/05/20) Subjective above noted BIPAP halo mask and TPN d/w RN Objective Last 24 Hour Vital Signs Date Time Temp Pulse Resp B/P (MAP) Pulse Ox O2 Delivery O2 Flow Rate FiO2 03/18/20 19:48 97.5 98 27 154/100 (118) 92 03/18/20 19:20 85 22 96 100 03/18/20 16:00 Bi-pap 100.0 Bi-pap 03/18/20 16:00 97.7 93 29 139/87 (104) 93 03/18/20 16:00 100 03/18/20 15:49 88 03/18/20 15:00 90 24 95 100 03/18/20 12:00 100 03/18/20 12:00 Bi-pap 100.0 Bi-pap 03/18/20 12:00 93 03/18/20 12:00 97.7 94 29 126/74 (91) 94 03/18/20 10:40 102 43 91 100 03/18/20 08:00 77 03/18/20 08:00 Bi-pap 100.0 Bi-pap 03/18/20 08:00 97.7 81 24 149/85 (106) 95 03/18/20 08:00 100 03/18/20 06:40 79 16 94 100 03/18/20 04:00 100 03/18/20 04:00 83 03/18/20 04:00 97.3 89 24 134/80 (98) 94 03/18/20 04:00 Bi-pap 100.0 Bi-pap 03/18/20 03:02 87 28 92 100 03/18/20 00:00 100 03/18/20 00:00 98.0 82 22 143/87 (105) 96 03/18/20 00:00 84 03/18/20 00:00 Bi-pap 100.0 Bi-pap 03/17/20 20:00 Bi-pap 100.0 Bi-pap 03/17/20 20:00 98.2 88 24 130/95 (107) 96 03/17/20 20:00 100 03/17/20 20:00 84 03/17/20 19:58 110 32 94 100 Intake and Output 03/17/20 03/18/20 19:00 07:00 Intake Total 2232 ml 913 ml Output Total 1100 ml 1500 ml Balance 1132 ml -587 ml Intake Oral 0 ml IV Total 2232 ml 913 ml Output Urine Total 1100 ml 1500 ml Laboratory Tests 03/17/20 21:31: POC Whole Blood Glucose [Pending] 03/18/20 00:06: POC Whole Blood Glucose [Pending] 03/18/20 05:58: POC Whole Blood Glucose [Pending] 03/18/20 06:15: White Blood Count 11.3H, Red Blood Count 4.88, Hemoglobin 13.4L, Hematocrit 41.8L, Mean Corpuscular Volume 86, Mean Corpuscular Hemoglobin 27.4, Mean Corpuscular Hemoglobin Concent 31.9L, Red Cell Distribution Width 14.1, Platelet Count 232, Mean Platelet Volume 8.4, Neutrophils (%) (Auto) , Lymphocytes (%) (Auto) , Monocytes (%) (Auto) , Eosinophils (%) (Auto) , Basophils (%) (Auto) , Differential Total Cells Counted 100, Neutrophils % (Manual) 95H, Lymphocytes % (Manual) 2L, Monocytes % (Manual) 3, Eosinophils % (Manual) 0, Basophils % (Manual) 0, Band Neutrophils 0, Platelet Estimate Adequate, Platelet Morphology Normal, Anisocytosis 1+, Urine Color Yellow, Urine Appearance Very cloudy, Urine pH 6, Urine Specific [place] 1.020, Urine Protein 1+H, Urine Glucose (UA) 3+H, Urine Ketones Negative, Urine Blood 3+H, Urine Nitrite Negative, Urine Bilirubin Negative, Urine Urobilinogen 4H, Urine Leukocyte Esterase 1+H, Urine RBC 5-10H, Urine WBC 0-2, Urine Squamous Epithelial Cells Occasional, Urine Bacteria ManyH , Urine Yeast FewH, Sodium Level 131L, Potassium Level 4.2, Chloride Level 96L, Carbon Dioxide Level 31, Anion Gap 4L, Blood Urea Nitrogen 22H, Creatinine 0.6, Estimat Glomerular Filtration Rate > 60, Glucose Level 168H, Uric Acid 1.5L, Calcium Level 8.4L, Phosphorus Level 3.3, Magnesium Level 2.1, Total Bilirubin 1.3H, Direct Bilirubin 0.8H, Aspartate Amino Transf (AST/SGOT) 80H, Alanine Aminotransferase (ALT/SGPT) 285H, Alkaline Phosphatase 154H, C-Reactive Protein, Quantitative < 0.4, Total Protein 6.0L, Albumin 2.3L, Globulin 3.7, Albumin/Globulin Ratio 0.6L 03/18/20 11:32: POC Whole Blood Glucose 196H 03/18/20 17:30: POC Whole Blood Glucose 233H Height (Feet): 5 Height (Inches): 10.00 Weight (Pounds): 240 Objective Comfortable appearing on BIPAP and TPN exam limited due to COVID isolation Assessment/Plan Status: stable, unchanged Assessment/Plan: Assessment/Plan Status: not improved, unchanged Assessment/Plan: covid + on BIPAP DM HTN FTT constipation not stable for PEG could not tolerate NGT placement TPN for now bowel regimen covid care rising LFTS>>> will monitor>> most likely due to TPN will Kourtney Don MD Mar 18, 2020 19:51
[2020-03-18] MEDS: Dyna-Hex 2% Top Sol 2oz TOPIC SCH (20:07)
[2020-03-18] MEDS: Miralax 17gm pkt ORAL SCH (20:08)
[2020-03-18] MEDS: FAT EMULSION 20% IV SCH (20:09)
[2020-03-18] MEDS: TPN IV SCH (20:09)
--- NOTE | 2020-03-18 21:14 | NUR ---
NURSE NOTES: Administered PM meds and changed TPN. Changed PICC line dressing. Pt is still fatigued but no apparent distress. Will continue plan of care. Will continue to monitor.
--- NOTE | 2020-03-18 23:16 | NUR ---
NURSE NOTES: Asked pt permission to take a picture of his sacral pressure wound. Pt refused, despite education about the importance of keeping track of the wound status. Will attempt again at a later time.
[2020-03-19] VITALS: BP 138/78
--- NOTE | 2020-03-19 02:08 | NUR ---
NURSE NOTES: Pt is asleep, no acute distress noted at this time. Vital signs stable. Will continue to monitor.
[2020-03-19 04:00] VITALS: BP 142/104
--- NOTE | 2020-03-19 04:43 | NUR ---
NURSE NOTES: Asked pt permission to clean and take pictures of his sacral wound. Pt refused again. Refused to have linens or gown changed. Asked pt if he wanted to do oral care, and he agreed but on the condition that RT be at the bedside. RT and RN attempted to provide oral care but pt started getting agitated and swatted the RT away, saying, "get out of my room." Will continue to monitor and continue plan of care.
[2020-03-19] MEDS: Solu-MEDROL 40mg Inj IVP SCH ×3 (05:11→22:50)
[2020-03-19] MEDS: NovoLOG Insulin Flexpen SUBQ SCH ×3 (06:28→17:24)
--- NOTE | 2020-03-19 07:16 | NUR ---
NURSE HAND-OFF REPORT: Important Events on Shift:[Refused picture, oral care, cleanings] Patient Status: [Stable] Diet: [TPN 83/hr] Pending Orders: [NA] Pending Results/Labs:[NA] Pending MD notification:[NA] Latest Vital Signs: Temperature 97.7 , Pulse 81 , B/P 142 /104 , Respiratory Rate 26 , O2 SAT 95 , Room Air, O2 Flow Rate 100.0 . Vital Sign Comment: [Stable] EKG Rhythm: Sinus Rhythm Rhythm change?: N MD Notified?: Courtney Paige MD Response: Message left await call Latest Hassan Fall Score: 45 Fall Risk: High Risk Safety Measures: Call light Within Reach, Bed Alarm Zone 1, Side Rails Side Rails x2, Bed position Low and Locked. Fall Precautions: Yellow Socks Yellow Gown Door Sign Patient Fall Education Report given to [PRIYANKA Wolfe].
[2020-03-19 07:20] VITALS: BP 145/94
--- NOTE | 2020-03-19 07:30 | NUR ---
NURSE NOTES: Received report from PRIYANKA Eubanks. The patient is resting on the bed without acute distress or shortness of breath but mildly anxious due to medical condition. The patient is AOx4, able to make needs known via verbal communication. SR with HR of 70-90s on the assembler caterpillar spider. The patient is on Bipap 20/10 FiO2 100% and oxygen saturation is fluctuating from 91-95%. The patient is kept in NPO due to continuous Bipap use and high risk of aspiration. The patient has condom cath that is intact and patent and urine draining by gravity. Skin issue noted and dressing intact. The patient has WAYNE double lumen PICC line that is intact and patent and running TPN @ 83mL/hr and other lumen kept in TKO. The patient's bed in the lowest position, call light in reach, and fall and aspiration precaution reinforced. IV site intact and patent. Will follow up the order and plan. Will closely monitor the patient. Will continue plan of care.
[2020-03-19 07:31] LABS: HEMATOCRIT 40.4 % (42.0-52.0); HEMOGLOBIN 13.1 G/DL (14.2-18.0); MEAN CORPUSCULAR VOLUME 86 FL (80-99); PLATELET COUNT 238 K/UL (150-450); RED BLOOD COUNT 4.69 M/UL (4.70-6.10); RED CELL DISTRIBUTION WIDTH 14.1 % (11.6-14.8); WHITE BLOOD COUNT 10.2 K/UL (4.8-10.8)
[2020-03-19 08:00] LABS: ALANINE AMINOTRANSFERASE 284 U/L (12-78); ALBUMIN 2.2 G/DL (3.4-5.0); ALBUMIN/GLOBULIN RATIO 0.6 (1.0-2.7); ALKALINE PHOSPHATASE 156 U/L (46-116); ANION GAP 2 mmol/L (5-15); ASPARTATE AMINO TRANSFERASE 70 U/L (15-37); BILIRUBIN,TOTAL 1.1 MG/DL (0.2-1.0); BLOOD UREA NITROGEN 24 mg/dL (7-18); CALCIUM 8.2 MG/DL (8.5-10.1); CARBON DIOXIDE 33 MMOL/L (21-32); CHLORIDE 93 MMOL/L (98-107); CREATININE 0.7 MG/DL (0.55-1.30); PHOSPHORUS 3.2 MG/DL (2.5-4.9); POTASSIUM 3.8 MMOL/L (3.5-5.1); SODIUM 128 MMOL/L (136-145)
--- NOTE | 2020-03-19 08:00 | NUR ---
NURSE NOTES: Initial nursing assessment done. Initial vital signs taken. The patient is stable at this time. Will continue plan of care.
[2020-03-19 08:02] LABS: BILIRUBIN,DIRECT 0.7 MG/DL (0.0-0.3)
[2020-03-19] MEDS: Pantoprazole Inj IVP SCH ×2 (08:42→20:41)
[2020-03-19] MEDS: Enoxaparin 40mg Inj SUBQ SCH (08:42)
[2020-03-19] MEDS: Levemir Flexpen SUBQ SCH ×2 (08:43→21:18)
[2020-03-19] MEDS: Vitamin D 1000 units Tab ORAL SCH (08:43)
[2020-03-19] MEDS: Lactulose 20gm/30ml UDC ORAL SCH ×3 (08:43→16:45)
[2020-03-19] MEDS: Bactrim 20ml in D5W 550ml IV SCH (08:48)
--- NOTE | 2020-03-19 10:00 | NUR ---
NURSE NOTES: Medications administered per order. The patient tolerated well. Refused PO medication at this time. Will closely monitor the patient. Will continue plan of care.
--- NOTE | 2020-03-19 10:18 | Pulmonology Progress Note ---
Subjective ROS Limited/Unobtainable: Yes Interval Events: tolerating BiPAP; saturating better Constitutional: Reports: fatigue; Denies: fever HEENT: Repors: no symptoms Respiratory: Reports: dry cough, shortness of breath Cardiovascular: Reports: no symptoms Gastrointestinal/Abdominal: Denies: nausea, vomiting, diarrhea Psychiatric: Denies: depression Skin: Denies: rash Musculoskeletal: Denies: pain Allergies: Coded Allergies: No Known Allergies (Unverified , 02/05/20) Objective Last 24 Hour Vital Signs Date Time Temp Pulse Resp B/P (MAP) Pulse Ox O2 Delivery O2 Flow Rate FiO2 03/19/20 08:00 96 03/19/20 08:00 100 03/19/20 07:37 95 33 92 100 03/19/20 07:20 97.8 88 23 145/94 (111) 92 03/19/20 04:00 97.7 92 26 142/104 (117) 95 03/19/20 04:00 Bi-pap 100.0 Bi-pap 03/19/20 04:00 100 03/19/20 04:00 81 03/19/20 03:29 79 18 95 100 03/19/20 00:00 100 03/19/20 00:00 89 03/19/20 00:00 97.5 89 28 138/78 (98) 93 03/19/20 00:00 Bi-pap 100.0 Bi-pap 03/18/20 23:06 89 38 93 100 03/18/20 20:00 Bi-pap 100.0 Bi-pap 03/18/20 20:00 94 03/18/20 20:00 100 03/18/20 19:48 97.5 98 27 154/100 (118) 92 03/18/20 19:20 85 22 96 100 03/18/20 16:00 Bi-pap 100.0 Bi-pap 03/18/20 16:00 97.7 93 29 139/87 (104) 93 03/18/20 16:00 100 03/18/20 15:49 88 03/18/20 15:00 90 24 95 100 03/18/20 12:00 100 03/18/20 12:00 Bi-pap 100.0 Bi-pap 03/18/20 12:00 93 03/18/20 12:00 97.7 94 29 126/74 (91) 94 03/18/20 10:40 102 43 91 100 Intake and Output 03/18/20 03/19/20 19:00 07:00 Intake Total 990 ml 830 ml Output Total 1400 ml 2200 ml Balance -410 ml -1370 ml IV Total 830 ml Other 990 ml Output Urine Total 1400 ml 2200 ml Objective 03/19 saturating at 96% on BiPAP 03/18 saturating at 94-97% on BiPAP 03/17 saturating at 91-92% on the current BiPAP setting 03/08 saturating in the low 90s on BiPAP / saturating at 85-88% on BiPAP 03/05 saturating 77-88% on BiPAP / now saturating at 89-90% on BiPAP 03/03 saturating in the low 80s on BiPAP 02/28 saturating 93% on BiPAP 02/23 saturating 94% on BiPAP 02/22 tolerating BiPAP, saturating at 90% 02/21 now on BiPAP, saturating at 95% 02/18 still on 15L NRB mask saturating 88-93% 02/17 now on 15L NRB mask saturating at 91% 02/17/2020 now on 2 lpm NC 02/16/2020 no change 02/15/2020 no major change 02/14/2020 saturating well on RAD; NAD 02/13/2020 pt asleep; saturating well on RA 02/12/2020 sitting up in a chair; saturating well on RA 02/11/2020 back on isolation due to COVID-19 positive status again; currently being worked up for positive blood culture 02/09/2020 off isolation; saturating well on RA 02/08/2020 feeling better; COVID-19 PCR neg 02/07/2020 reports feeling better; COVID-19 PCR pending 02/06/2020 pt laying in bed; reports feeling better General Appearance: WD/WN, no acute distress HEENT: normocephalic, atraumatic Respiratory: chest wall non-tender Cardiovascular: normal rate, regular rhythm Abdomen: normal bowel sounds, soft, non tender, other - obese Microbiology Date/Time Source Procedure Growth Status 03/18/20 06:15 Urine,Clean Catch Urine Culture - Preliminary Gram Negative Zackary Resulted 03/17/20 18:35 Blood Blood Culture - Preliminary NO GROWTH AFTER 24 HOURS Resulted 03/17/20 18:30 Blood Blood Culture - Preliminary NO GROWTH AFTER 24 HOURS Resulted Laboratory Tests 03/18/20 11:32: POC Whole Blood Glucose 196H 03/18/20 17:30: POC Whole Blood Glucose 233H 03/18/20 20:17: POC Whole Blood Glucose 152H 03/18/20 23:09: POC Whole Blood Glucose 209H 03/19/20 04:20: White Blood Count 10.2, Red Blood Count 4.69L, Hemoglobin 13.1L, Hematocrit 40.4L, Mean Corpuscular Volume 86, Mean Corpuscular Hemoglobin 27.9, Mean Corpuscular Hemoglobin Concent 32.5, Red Cell Distribution Width 14.1, Platelet Count 238, Mean Platelet Volume 8.3, Neutrophils (%) (Auto) , Lymphocytes (%) (Auto) , Monocytes (%) (Auto) , Eosinophils (%) (Auto) , Basophils (%) (Auto) , Differential Total Cells Counted 100, Neutrophils % (Manual) 86H, Lymphocytes % (Manual) 4L, Monocytes % (Manual) 10, Eosinophils % (Manual) 0, Basophils % (Manual) 0, Band Neutrophils 0, Platelet Estimate Adequate, Platelet Morphology Normal, Anisocytosis 1+, Sodium Level 128L, Potassium Level 3.8, Chloride Level 93L, Carbon Dioxide Level 33H, Anion Gap 2L, Blood Urea Nitrogen 24H, Creatinine 0.7, Estimat Glomerular Filtration Rate > 60, Glucose Level 164H, Uric Acid 1.8L , Calcium Level 8.2L, Phosphorus Level 3.2, Magnesium Level 1.8, Total Bilirubin 1.1H, Direct Bilirubin 0.7H, Aspartate Amino Transf (AST/SGOT) 70H, Alanine Aminotransferase (ALT/SGPT) 284H, Alkaline Phosphatase 156H, C-Reactive Protein, Quantitative < 0.4, Pro-B-Type Natriuretic Peptide 294H, Total Protein 5.9L, Albumin 2.2L, Globulin 3.7, Albumin/Globulin Ratio 0.6L 03/19/20 05:18: POC Whole Blood Glucose 160H 03/19/20 07:24: POC Whole Blood Glucose 158H Current Medications Medications (Trade) Dose Ordered Sig/Dennis Route PRN Reason Start Time Stop Time Status Last Admin Dose Admin Acetaminophen (Tylenol) 650 mg Q4H PRN ORAL Mild Pain (Pain Scale 1-3) 03/09/20 12:00 04/08/20 11:59 Bisacodyl (Dulcolax) 10 mg HSPRN PRN RECTAL Constipation 02/05/20 13:15 05/05/20 13:14 Bisacodyl (Dulcolax) 10 mg Q12H PRN RECTAL Constipation 03/18/20 16:45 06/16/20 16:44 Chlorhexidine Gluconate (Marlen-Hex 2%) 1 applic DAILY@2000 TOPIC 02/14/20 20:00 05/14/20 19:59 03/18/20 20:07 Clonidine HCl (Catapres TTS-1) 1 patch QWEEK TDERMAL 03/09/20 21:00 06/07/20 20:59 03/16/20 20:27 Dextrose 1,000 ml @ 0 mls/hr Q24H PRN IV PN interrupted or unavailable 03/09/20 20:00 04/08/20 19:59 Dextrose (Dextrose 50%) 25 ml Q30M PRN IV Hypoglycemia 03/10/20 00:00 06/08/20 00:00 Dextrose (Dextrose 50%) 50 ml Q30M PRN IV Hypoglycemia 03/10/20 00:00 06/08/20 00:00 Enoxaparin Sodium (Lovenox) 40 mg DAILY SUBQ 03/13/20 12:00 06/11/20 11:59 03/19/20 08:42 Fat Emulsion Intravenous 192 ml/Amino Acids/ Electrolytes/ Dextrose 1,992 ml @ 83 mls/hr Q24H IV 03/17/20 20:00 04/16/20 19:59 03/18/20 20:09 Hydralazine HCl (Apresoline) 10 mg Q6H PRN IV For High Blood Pressure 03/09/20 17:00 06/07/20 16:59 03/17/20 09:28 Insulin Aspart (NovoLOG) Q6HR SUBQ 03/10/20 00:00 06/08/20 00:00 03/19/20 06:28 Insulin Detemir (Levemir) 18 units Q12HR SUBQ 03/14/20 21:00 06/10/20 20:59 03/19/20 08:43 Lactulose (Cephulac) 20 gm THREE TIMES A DAY ORAL 03/08/20 13:00 04/07/20 12:59 03/17/20 09:00 Methylprednisolone Sodium Succinate (Solu-MEDROL) 40 mg EVERY 8 HOURS IVP 03/07/20 18:58 06/05/20 18:57 03/19/20 05:11 Pantoprazole (Protonix) 40 mg EVERY 12 HOURS IVP 03/12/20 21:00 04/11/20 20:59 03/19/20 08:42 Polyethylene Glycol (Miralax) 17 gm BEDTIME ORAL 03/08/20 21:00 04/07/20 20:59 03/17/20 21:24 Promethazine HCl/ Codeine (Phenergan with Codeine) 5 ml Q4H PRN ORAL For Cough 02/22/20 12:15 03/23/20 12:14 03/12/20 09:00 Trimethoprim/ Sulfamethoxazole 20 ml/Dextrose 570 ml @ 380 mls/hr [id number] BACTRIM IV 03/14/20 00:00 03/21/20 00:00 03/19/20 08:48 Vitamin D (Vitamin D) 5,000 unit DAILY ORAL 03/15/20 09:00 04/14/20 08:59 03/17/20 09:01 Assessment/Plan Assessment/Plan 1.COVID-19 pneumonia. - last COVID-19 test positive after two negative tests - CTA 02/05/2020 ground-glass and consolidating infiltrates in the dependent portions of both lower lobes and to lesser degree the upper lobes consistent with bilateral pneumonia. No evidence of pulmonary embolus. - CXR 02/17/2020 worsening bilateral infiltrates; Repeat CXR shows basilar linear densities - CT chest 02/18 shows Increased extensive patchy ground-glass opacities and densities throughout the lungs, suggestive of Covid 19 infection. - currently on BiPAP. Saturations 90%. - Mycoplasma pneumoniae IgG 273; M. pneumoniae IgM titer within normal limits - D-dimer 0.90; on full dose Lovenox -Discontinued Decadron, now on Solumedrol - s/p remdesivir - is net I/O negative -We will continue TPN He has had a progressive increase in LDH,-started on Bactrim due to concern about pneumocystis. - Looking unchanged today. - CXR 03/17 no significant change 2. Initial negative rapid COVID-19 gene assay.- however repeat COVID-19 test positive 3. Smoker. 4. DVT ppx - on lovenox 5. Hypertension - on hydralazine, and norvasc 6. Blood culture positive for gram positive cocci staph aureus 02/06 - on Abx - CT abd/pelvis showed no abscess per ID - TTE/ FERNY held off due to COVID-19 status - repeat BCx negative for growth 03/17 7. Leukocytosis; resolved - ID following 8. Gram negative zackary UTI - added rocephin per ID recs The care for this patient was discussed with my supervising physician Time spent for this case was approximately 31 minutes Edilson Marinelli Mar 19, 2020 10:18
[2020-03-19 11:00] VITALS: BP 133/87
[2020-03-19] MEDS ORDERED: cefTRIAXone 1 GM in D5W 55 ML IVPB SCH (11:00)
--- NOTE | 2020-03-19 11:00 | NUR ---
NURSE NOTES: YENI Lisa for Dr. Mata at the bedside assessed the patient. Notified abnormal lab including WBC, D-dimer, Na, BUN, Cr, elevated AST and ALT. Also notified that the patient has not done ABG for long time and no order for today. Also notified the patient's condition of SpO2 91-95% that gets worse with movement with Bipap 20/10 FiO2 100%. No new order at this time. Will closely monitor the patient. Will continue plan of care.
--- NOTE | 2020-03-19 12:00 | NUR ---
NURSE NOTES: BS 242 noted. Novolog administered per order. Will closely monitor the patient. Will continue plan of care.
[2020-03-19] MEDS ORDERED: NaCl 3% 500ml 500 ML IV ONE (12:30)
--- NOTE | 2020-03-19 14:00 | NUR ---
NURSE NOTES: Dr. Cooper reviewed the lab and ordered 3% Na and Lasix. Will administer as ordered. Will closely monitor the patient. Will continue plan of care.
--- NOTE | 2020-03-19 14:34 | Cardiology Progress Note ---
Assessment/Plan Problem List: (1) Hypertension (2) COVID-19 virus infection (3) Staphylococcus aureus bacteremia (4) Chest pain (5) Pneumonia Status: stable, progressing Status Narrative Respiratory status slowly improving, though pt remains on bipap vent Pt COVID +, and had MSSA bacteremia ( 02/06) and 1 + bld culture for bacillus species on 03/03. WBC decreasing and pt afebrile. BP is intermittently elevated. HRs have decreased , off hydralazine and with improvement in pulm status Assessment/Plan Continue bipap support, steroids and bactrim per ID On lasix - monitor i/os, renal function Now on clonidine patch for HTN.Will add amlodipine. Subjective ROS Limited/Unobtainable: No Subjective Cardiology for Dr. Awan Mr Horta remains on bipap vent. Comfortable at rest Objective Last 24 Hour Vital Signs Date Time Temp Pulse Resp B/P (MAP) Pulse Ox O2 Delivery O2 Flow Rate FiO2 03/19/20 12:00 Bi-pap 100.0 Bi-pap 03/19/20 12:00 100 03/19/20 12:00 85 03/19/20 11:17 90 27 95 100 03/19/20 11:00 97.0 86 20 133/87 (102) 95 03/19/20 08:00 96 03/19/20 08:00 100 03/19/20 08:00 Bi-pap 100.0 Bi-pap 03/19/20 07:37 95 33 92 100 03/19/20 07:20 97.8 88 23 145/94 (111) 92 03/19/20 04:00 97.7 92 26 142/104 (117) 95 03/19/20 04:00 Bi-pap 100.0 Bi-pap 03/19/20 04:00 100 03/19/20 04:00 81 03/19/20 03:29 79 18 95 100 03/19/20 00:00 100 03/19/20 00:00 89 03/19/20 00:00 97.5 89 28 138/78 (98) 93 03/19/20 00:00 Bi-pap 100.0 Bi-pap 03/18/20 23:06 89 38 93 100 03/18/20 20:00 Bi-pap 100.0 Bi-pap 03/18/20 20:00 94 03/18/20 20:00 100 03/18/20 19:48 97.5 98 27 154/100 (118) 92 03/18/20 19:20 85 22 96 100 03/18/20 16:00 Bi-pap 100.0 Bi-pap 03/18/20 16:00 97.7 93 29 139/87 (104) 93 03/18/20 16:00 100 03/18/20 15:49 88 03/18/20 15:00 90 24 95 100 General Appearance: WD/WN, alert, other - on bipap mask EENT: PERRL/EOMI Neck: non-tender, no JVD Rhythm: NSR Cardiovascular: normal rate, regular rhythm Respiratory/Chest: no accessory muscle use, other - coarse BS bilaterally. No rales Abdomen: non tender, soft Extremities: no swelling Intake and Output 03/18/20 03/19/20 19:00 07:00 Intake Total 990 ml 830 ml Output Total 1400 ml 2200 ml Balance -410 ml -1370 ml IV Total 830 ml Other 990 ml Output Urine Total 1400 ml 2200 ml Laboratory Tests Test 03/18/20 17:30 03/18/20 20:17 03/18/20 23:09 03/19/20 04:20 POC Whole Blood Glucose 233 MG/DL (74-106) H 152 MG/DL (74-106) H 209 MG/DL (74-106) H White Blood Count 10.2 K/UL (4.8-10.8) Red Blood Count 4.69 M/UL (4.70-6.10) L Hemoglobin 13.1 G/DL (14.2-18.0) L Hematocrit 40.4 % (42.0-52.0) L Mean Corpuscular Volume 86 FL (80-99) Mean Corpuscular Hemoglobin 27.9 PG (27.0-31.0) Mean Corpuscular Hemoglobin Concent 32.5 G/DL (32.0-36.0) Red Cell Distribution Width 14.1 % (11.6-14.8) Platelet Count 238 K/UL (150-450) Mean Platelet Volume 8.3 FL (6.5-10.1) Neutrophils (%) (Auto) % (45.0-75.0) Lymphocytes (%) (Auto) % (20.0-45.0) Monocytes (%) (Auto) % (1.0-10.0) Eosinophils (%) (Auto) % (0.0-3.0) Basophils (%) (Auto) % (0.0-2.0) Differential Total Cells Counted 100 Neutrophils % (Manual) 86 % (45-75) H Lymphocytes % (Manual) 4 % (20-45) L Monocytes % (Manual) 10 % (1-10) Eosinophils % (Manual) 0 % (0-3) Basophils % (Manual) 0 % (0-2) Band Neutrophils 0 % (0-8) Platelet Estimate Adequate Platelet Morphology Normal Anisocytosis 1+ Sodium Level 128 MMOL/L (136-145) L Potassium Level 3.8 MMOL/L (3.5-5.1) Chloride Level 93 MMOL/L (98-107) L Carbon Dioxide Level 33 MMOL/L (21-32) H Anion Gap 2 mmol/L (5-15) L Blood Urea Nitrogen 24 mg/dL (7-18) H Creatinine 0.7 MG/DL (0.55-1.30) Estimat Glomerular Filtration Rate > 60 mL/min (>60) Glucose Level 164 MG/DL (74-106) H Uric Acid 1.8 MG/DL (2.6-7.2) L Calcium Level 8.2 MG/DL (8.5-10.1) L Phosphorus Level 3.2 MG/DL (2.5-4.9) Magnesium Level 1.8 MG/DL (1.8-2.4) Total Bilirubin 1.1 MG/DL (0.2-1.0) H Direct Bilirubin 0.7 MG/DL (0.0-0.3) H Aspartate Amino Transf (AST/SGOT) 70 U/L (15-37) H Alanine Aminotransferase (ALT/SGPT) 284 U/L (12-78) H Alkaline Phosphatase 156 U/L (46-116) H C-Reactive Protein, Quantitative < 0.4 mg/dL (0.00-0.90) Pro-B-Type Natriuretic Peptide 294 pg/mL (0-125) H Total Protein 5.9 G/DL (6.4-8.2) L Albumin 2.2 G/DL (3.4-5.0) L Globulin 3.7 g/dL Albumin/Globulin Ratio 0.6 (1.0-2.7) L Test 03/19/20 05:18 03/19/20 07:24 03/19/20 11:06 POC Whole Blood Glucose 160 MG/DL (74-106) H 158 MG/DL (74-106) H Pending Microbiology Date/Time Source Procedure Growth Status 03/18/20 06:15 Urine,Clean Catch Urine Culture - Preliminary Gram Negative Zackary Resulted 03/17/20 18:35 Blood Blood Culture - Preliminary NO GROWTH AFTER 24 HOURS Resulted 03/17/20 18:30 Blood Blood Culture - Preliminary NO GROWTH AFTER 24 HOURS Resulted Lily Rene MD Mar 19, 2020 14:34
--- NOTE | 2020-03-19 15:04 | Nephrology Progress Note ---
Assessment/Plan Problem List: (1) Dehydration (2) Electrolyte imbalance (3) COVID-19 virus infection (4) Pneumonia (5) DMII (diabetes mellitus, type 2) (6) Protein malnutrition Assessment Azotemia, hypernatremia Hypoalbuminemia Staff Otilia bacteremia COVID-19 isolation, pneumonia, bilateral infiltrate Hypertension Diabetes mellitus History of smoking Plan March 19: Remains on TPN. Labs reviewed. Serum sodium 128. Will give 3% saline with IV Lasix. Continue to monitor electrolytes. No change in TPN composition. Discussed with pharmacy. March 18: Remains on TPN. Labs reviewed. Discussed with pharmacist. Will give 3 doses of IV Lasix 20 mg every 8 hours. Continue to monitor serum sodium electrolytes uric acid. White blood cells down. Continue per consultants. March 17: On TPN. Labs reviewed. Discussed with pharmacist. Sodium content increase. Continue to monitor CMP. Patient continues to have leukocytosis. March 16: On TPN. Labs reviewed. Discussed with pharmacist. Appropriate changes made. Continue to monitor electrolytes. March 15: Remains on TPN. Labs reviewed. Discussed with pharmacist. Continue per current management. March 14: Remains on TPN. Labs reviewed, stable. Vitamin D level low, replacement ordered. Continue to monitor electrolytes and renal parameters. March 13: Patient remains on TPN. Discussed with pharmacist. TPN's sodium content adjusted. Labs reviewed. Continue to monitor electrolytes. Blood pressure remains stable. Continue per consultants. March 12: Patient on TPN. Labs reviewed. CPK remains elevated. Abnormal electrolytes and high blood sugar discussed with pharmacist and TPN adjusted. Continue to monitor labs. Oral Protonix added. Ibuprofen discontinued. Can continue to monitor electrolytes and chemistries. Levemir for high blood sugar added. March 11: Patient on TPN. Labs as of 11:15 AM is still pending. Continue per current treatment plan. Will check labs and adjust TPN as needed. Continue per consultants. March 10: Patient on TPN. Labs reviewed. Electrolytes overall stable. CPK is elevated. Will monitor electrolyte, CPK level, lipid panel. Continue per consultants. Discussed with pharmacist. Discussed with RN. Nutritional evaluation noted. Previously: D5W 100 cc an hour Monitor electrolytes renal parameters TPN and Intralipid ordered Will follow Continue per consultants Dietary consult requested Subjective ROS Limited/Unobtainable: Yes Objective Objective Last 24 Hour Vital Signs Date Time Temp Pulse Resp B/P (MAP) Pulse Ox O2 Delivery O2 Flow Rate FiO2 03/19/20 12:00 Bi-pap 100.0 Bi-pap 03/19/20 12:00 100 03/19/20 12:00 85 03/19/20 11:17 90 27 95 100 03/19/20 11:00 97.0 86 20 133/87 (102) 95 03/19/20 08:00 96 03/19/20 08:00 100 03/19/20 08:00 Bi-pap 100.0 Bi-pap 03/19/20 07:37 95 33 92 100 03/19/20 07:20 97.8 88 23 145/94 (111) 92 03/19/20 04:00 97.7 92 26 142/104 (117) 95 03/19/20 04:00 Bi-pap 100.0 Bi-pap 03/19/20 04:00 100 03/19/20 04:00 81 03/19/20 03:29 79 18 95 100 03/19/20 00:00 100 03/19/20 00:00 89 03/19/20 00:00 97.5 89 28 138/78 (98) 93 03/19/20 00:00 Bi-pap 100.0 Bi-pap 03/18/20 23:06 89 38 93 100 03/18/20 20:00 Bi-pap 100.0 Bi-pap 03/18/20 20:00 94 03/18/20 20:00 100 03/18/20 19:48 97.5 98 27 154/100 (118) 92 03/18/20 19:20 85 22 96 100 03/18/20 16:00 Bi-pap 100.0 Bi-pap 03/18/20 16:00 97.7 93 29 139/87 (104) 93 03/18/20 16:00 100 03/18/20 15:49 88 Intake and Output 03/18/20 03/19/20 19:00 07:00 Intake Total 990 ml 830 ml Output Total 1400 ml 2200 ml Balance -410 ml -1370 ml IV Total 830 ml Other 990 ml Output Urine Total 1400 ml 2200 ml Current Medications Medications (Trade) Dose Ordered Sig/Dennis Route PRN Reason Start Time Stop Time Status Last Admin Dose Admin Acetaminophen (Tylenol) 650 mg Q4H PRN ORAL Mild Pain (Pain Scale 1-3) 03/09/20 12:00 04/08/20 11:59 Amlodipine Besylate (Norvasc) 2.5 mg DAILY ORAL 03/20/20 09:00 04/19/20 08:59 Bisacodyl (Dulcolax) 10 mg HSPRN PRN RECTAL Constipation 02/05/20 13:15 05/05/20 13:14 Bisacodyl (Dulcolax) 10 mg Q12H PRN RECTAL Constipation 03/18/20 16:45 06/16/20 16:44 Ceftriaxone Sodium 1 gm/ Dextrose 55 ml @ 110 mls/hr Q24H IVPB 03/19/20 11:00 03/26/20 10:59 03/19/20 10:59 Chlorhexidine Gluconate (Marlen-Hex 2%) 1 applic DAILY@2000 TOPIC 02/14/20 20:00 05/14/20 19:59 03/18/20 20:07 Clonidine HCl (Catapres TTS-1) 1 patch QWEEK TDERMAL 03/09/20 21:00 06/07/20 20:59 03/16/20 20:27 Dextrose 1,000 ml @ 0 mls/hr Q24H PRN IV PN interrupted or unavailable 03/09/20 20:00 04/08/20 19:59 Dextrose (Dextrose 50%) 25 ml Q30M PRN IV Hypoglycemia 03/10/20 00:00 06/08/20 00:00 Dextrose (Dextrose 50%) 50 ml Q30M PRN IV Hypoglycemia 03/10/20 00:00 06/08/20 00:00 Enoxaparin Sodium (Lovenox) 40 mg DAILY SUBQ 03/13/20 12:00 06/11/20 11:59 03/19/20 08:42 Fat Emulsion Intravenous 192 ml/Amino Acids/ Electrolytes/ Dextrose 1,992 ml @ 83 mls/hr Q24H IV 03/17/20 20:00 04/16/20 19:59 03/18/20 20:09 Furosemide (Lasix) 20 mg EVERY 8 HOURS IV 03/19/20 14:00 04/18/20 13:59 03/19/20 13:05 Hydralazine HCl (Apresoline) 10 mg Q6H PRN IV For High Blood Pressure 03/09/20 17:00 06/07/20 16:59 03/17/20 09:28 Insulin Aspart (NovoLOG) Q6HR SUBQ 03/10/20 00:00 06/08/20 00:00 03/19/20 11:19 Insulin Detemir (Levemir) 18 units Q12HR SUBQ 03/14/20 21:00 06/10/20 20:59 03/19/20 08:43 Lactulose (Cephulac) 20 gm THREE TIMES A DAY ORAL 03/08/20 13:00 04/07/20 12:59 03/17/20 09:00 Methylprednisolone Sodium Succinate (Solu-MEDROL) 40 mg EVERY 8 HOURS IVP 03/07/20 18:58 06/05/20 18:57 03/19/20 13:05 Pantoprazole (Protonix) 40 mg EVERY 12 HOURS IVP 03/12/20 21:00 04/11/20 20:59 03/19/20 08:42 Polyethylene Glycol (Miralax) 17 gm BEDTIME ORAL 03/08/20 21:00 04/07/20 20:59 03/17/20 21:24 Promethazine HCl/ Codeine (Phenergan with Codeine) 5 ml Q4H PRN ORAL For Cough 02/22/20 12:15 03/23/20 12:14 03/12/20 09:00 Sodium Chloride 500 ml @ 30 mls/hr ONCE ONCE IV 03/19/20 12:30 03/20/20 05:09 03/19/20 13:05 Trimethoprim/ Sulfamethoxazole 20 ml/Dextrose 570 ml @ 380 mls/hr [id number]-CZ BACTRIM IV 03/14/20 00:00 03/21/20 00:00 03/19/20 08:48 Vitamin D (Vitamin D) 5,000 unit DAILY ORAL 03/15/20 09:00 04/14/20 08:59 03/17/20 09:01 Laboratory Tests 03/18/20 17:30: POC Whole Blood Glucose 233H 03/18/20 20:17: POC Whole Blood Glucose 152H 03/18/20 23:09: POC Whole Blood Glucose 209H 03/19/20 04:20: White Blood Count 10.2, Red Blood Count 4.69L, Hemoglobin 13.1L, Hematocrit 40.4L, Mean Corpuscular Volume 86, Mean Corpuscular Hemoglobin 27.9, Mean Corpuscular Hemoglobin Concent 32.5, Red Cell Distribution Width 14.1, Platelet Count 238, Mean Platelet Volume 8.3, Neutrophils (%) (Auto) , Lymphocytes (%) (Auto) , Monocytes (%) (Auto) , Eosinophils (%) (Auto) , Basophils (%) (Auto) , Differential Total Cells Counted 100, Neutrophils % (Manual) 86H, Lymphocytes % (Manual) 4L, Monocytes % (Manual) 10, Eosinophils % (Manual) 0, Basophils % (Manual) 0, Band Neutrophils 0, Platelet Estimate Adequate, Platelet Morphology Normal, Anisocytosis 1+, Sodium Level 128L, Potassium Level 3.8, Chloride Level 93L, Carbon Dioxide Level 33H, Anion Gap 2L, Blood Urea Nitrogen 24H, Creatinine 0.7, Estimat Glomerular Filtration Rate > 60, Glucose Level 164H, Uric Acid 1.8L , Calcium Level 8.2L, Phosphorus Level 3.2, Magnesium Level 1.8, Total Bilirubin 1.1H, Direct Bilirubin 0.7H, Aspartate Amino Transf (AST/SGOT) 70H, Alanine Aminotransferase (ALT/SGPT) 284H, Alkaline Phosphatase 156H, C-Reactive Protein, Quantitative < 0.4, Pro-B-Type Natriuretic Peptide 294H, Total Protein 5.9L, Albumin 2.2L, Globulin 3.7, Albumin/Globulin Ratio 0.6L 03/19/20 05:18: POC Whole Blood Glucose 160H 03/19/20 07:24: POC Whole Blood Glucose 158H 03/19/20 11:06: POC Whole Blood Glucose [Pending] Height (Feet): 5 Height (Inches): 10.00 Weight (Pounds): 240 General Appearance: mild distress EENT: other - Remains on BiPAP Cardiovascular: tachycardia Respiratory/Chest: decreased breath sounds Abdomen: distended Rubin Cooper MD Mar 19, 2020 15:04
--- NOTE | 2020-03-19 15:41 | Infectious Diseases Prog Note ---
Assessment/Plan Assessment/Plan ASSESSMENT AND PLAN: 1. staph aureus bacteremia/mssa, ? source, ? endocarditis, sepsis, leukocytosis, ? CAP, PJP less likely with HIV negative and steroids < 1 month covid-19 +, hypoxia, sob, chest x-ray worse, ? PE, ? HCAP/aspiration pna recurrent fevers - ? fungal, ? OI leukocytosis noted - ? new infection, ? steroids cocci serology negative, legionella negative, beta 1,3 D-glucan wnl, Il-16 - 13.7 elevated LFT's - ? TPN, ? Bactrim - US without gallbladder disease, + steatosis - d/w GI - TPN more likely than bactrim as etiology gram neg uti - ID/sensitivities pending - bactrim for empiric pneumocystis pna treatment -day # 11 - day # 38 mssa tx post neg blood cultures - will be covered by bactrim also - cefepime for gram neg uti pending final urine culture - saturations improved, on solumedrol - monitor hypoxia, labs and chest x-ray - CT imaging noted - leukocytosis better - TPN 2. covid-19 isolation 3. Hypertension history. Blood pressure treatment primary care team. 4. Elevated blood sugars. Blood sugar treatment per primary care team. 5. No known drug allergies. 6. Social history is positive for smoking. 7. Family history is noncontributory. 8. MAR was noted. 9. Case was discussed with RN. 10. Continue treatment per primary consultants. Subjective Constitutional: Reports: fatigue, other - on bipap, sats stable ; Denies: fever HEENT: Reports: congestion Respiratory: Reports: shortness of breath Cardiovascular: Denies: chest pain Gastrointestinal/Abdominal: Denies: nausea, vomiting, diarrhea Genitourinary: Reports: other - no joseph Neurologic: Denies: headache Psychiatric: Denies: anxiety Skin: Denies: rash Hematologic: Denies: bleeding Musculoskeletal: Denies: pain Allergies: Coded Allergies: No Known Allergies (Unverified , 02/05/20) Objective Last 24 Hour Vital Signs Date Time Temp Pulse Resp B/P (MAP) Pulse Ox O2 Delivery O2 Flow Rate FiO2 03/19/20 12:00 Bi-pap 100.0 Bi-pap 03/19/20 12:00 100 03/19/20 12:00 85 03/19/20 11:17 90 27 95 100 03/19/20 11:00 97.0 86 20 133/87 (102) 95 03/19/20 08:00 96 03/19/20 08:00 100 03/19/20 08:00 Bi-pap 100.0 Bi-pap 03/19/20 07:37 95 33 92 100 03/19/20 07:20 97.8 88 23 145/94 (111) 92 03/19/20 04:00 97.7 92 26 142/104 (117) 95 03/19/20 04:00 Bi-pap 100.0 Bi-pap 03/19/20 04:00 100 03/19/20 04:00 81 03/19/20 03:29 79 18 95 100 03/19/20 00:00 100 03/19/20 00:00 89 03/19/20 00:00 97.5 89 28 138/78 (98) 93 03/19/20 00:00 Bi-pap 100.0 Bi-pap 03/18/20 23:06 89 38 93 100 03/18/20 20:00 Bi-pap 100.0 Bi-pap 03/18/20 20:00 94 03/18/20 20:00 100 03/18/20 19:48 97.5 98 27 154/100 (118) 92 03/18/20 19:20 85 22 96 100 03/18/20 16:00 Bi-pap 100.0 Bi-pap 03/18/20 16:00 97.7 93 29 139/87 (104) 93 03/18/20 16:00 100 03/18/20 15:49 88 Height (Feet): 5 Height (Inches): 10.00 Weight (Pounds): 240 General Appearance: other - on bipap, alert, sats stable HEENT: normocephalic, atraumatic, anicteric Respiratory/Chest: no accessory muscle use, crackles/rales, rhonchi - bilaterally Cardiovascular: normal rate, regular rhythm, no gallop/murmur Abdomen: normal bowel sounds, soft, non tender, no organomegaly, non distended Genitourinary: other - no joseph Extremities: no cyanosis Skin: no rash Neurologic/Psychiatric: 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 The infiltrates are typical for Covid 19. No evidence of pulmonary embolus. CT abdomen and pelvis: IMPRESSION: 1. Scattered hepatic hypodense lesions, too small to characterize on this examination without intravenous contrast. 2. Colonic diverticulosis without evidence of acute diverticulitis. 3. Scattered enlarged mesenteric lymph nodes, presumably reactive. teral pneumonia. The infiltrates are typical for Covid 19. No evidence of pulmonary embolus. Chest x-ray - 12/19/19 - Indication: Shortness of breath Technique: One view of the chest Comparison: 02/17/2020 Findings: Interim worsening of bilateral infiltrates, particularly on the right. The heart is borderline enlarged. The pleural spaces are clear. Left arm PICC is aga in demonstrated Impression: Worsening bilateral infiltrates over one day, likely pneumonia CT chest - 02/19/20 - IMPRESSION: Increased extensive patchy ground-glass opacities and densities throughout the lungs, suggestive of Covid 19 infection. Chest x-ray 02/23/20 - Procedure: XRAY Chest 1v As Indication: Reason For Exam: INFECT Technique: One view of the chest Comparison: 02/20/2020 Findings: Allowing for differences in exposure technique, bilateral mid and lower lung infiltrates are probably unchanged. The heart size is normal. The pleural spaces are clear. Impression: Unchanged, over 4 days, findings as above. Chest x-ray - 02/25/20 - FINDINGS: Lungs: Interval slightly worsening bilateral airspace disease. Pleural space: Unremarkable. No pneumothorax. Heart: Unremarkable. No cardiomegaly. Mediastinum: Unremarkable. Bones/joints: Unremarkable. IMPRESSION: Interval slightly worsening bilateral airspace disease. Chest x-ray - 03/02/20 - Procedure: XRAY Chest 1v Indication: Shortness of breath Technique: One view of the chest Comparison: 02/25/2020 Findings: Bilateral interstitial and airspace infiltrates are unchanged. The heart size is normal. Left arm PICC is again demonstrated Impression: Unchanged, over one day, findings as above. Chest x-ray - 03/06/20 - Procedure: XRAY Chest 1v Indication: Shortness of breath Technique: One view of the chest Comparison: 03/02/2020 Findings: Bilateral infiltrates are unchanged. Normal heart size. Pleural spaces are clear Chest x-ray - 03/12/10 - Impression: COMPARISON: Chest radiograph March 06, 2020. FINDINGS/IMPRESSION: Improving basilar infiltrates. Follow chest radiograph recommended. The upper lung finley are clear. No pneumothorax. Stable cardiomegaly. Stable left upper extremity PICC line. anged, over 4 days, findings as above. Chest x-ray - 03/17/20 - Procedure: XRAY Chest 1v Indication: Shortness of breath Technique: One view of the chest Comparison: 03/12/2020 Findings: Left arm PICC is again demonstrated. Infiltrates are unchanged. The h eart size is upper limits of normal. Impression: Unchanged, over 5 days, findings as above. Abdominal US - IMPRESSION: 1. Gallbladder is normal. 2. Hepatic steatosis. 3. 1.7 cm cyst right kidney. Impression. Microbiology Date/Time Source Procedure Growth Status 03/18/20 06:15 Urine,Clean Catch Urine Culture - Preliminary Gram Negative Zackary Resulted 03/17/20 18:35 Blood Blood Culture - Preliminary NO GROWTH AFTER 24 HOURS Resulted 03/17/20 18:30 Blood Blood Culture - Preliminary NO GROWTH AFTER 24 HOURS Resulted Laboratory Tests Test 03/18/20 17:30 03/18/20 20:17 03/18/20 23:09 03/19/20 04:20 POC Whole Blood Glucose 233 MG/DL (74-106) H 152 MG/DL (74-106) H 209 MG/DL (74-106) H White Blood Count 10.2 K/UL (4.8-10.8) Red Blood Count 4.69 M/UL (4.70-6.10) L Hemoglobin 13.1 G/DL (14.2-18.0) L Hematocrit 40.4 % (42.0-52.0) L Mean Corpuscular Volume 86 FL (80-99) Mean Corpuscular Hemoglobin 27.9 PG (27.0-31.0) Mean Corpuscular Hemoglobin Concent 32.5 G/DL (32.0-36.0) Red Cell Distribution Width 14.1 % (11.6-14.8) Platelet Count 238 K/UL (150-450) Mean Platelet Volume 8.3 FL (6.5-10.1) Neutrophils (%) (Auto) % (45.0-75.0) Lymphocytes (%) (Auto) % (20.0-45.0) Monocytes (%) (Auto) % (1.0-10.0) Eosinophils (%) (Auto) % (0.0-3.0) Basophils (%) (Auto) % (0.0-2.0) Differential Total Cells Counted 100 Neutrophils % (Manual) 86 % (45-75) H Lymphocytes % (Manual) 4 % (20-45) L Monocytes % (Manual) 10 % (1-10) Eosinophils % (Manual) 0 % (0-3) Basophils % (Manual) 0 % (0-2) Band Neutrophils 0 % (0-8) Platelet Estimate Adequate Platelet Morphology Normal Anisocytosis 1+ Sodium Level 128 MMOL/L (136-145) L Potassium Level 3.8 MMOL/L (3.5-5.1) Chloride Level 93 MMOL/L (98-107) L Carbon Dioxide Level 33 MMOL/L (21-32) H Anion Gap 2 mmol/L (5-15) L Blood Urea Nitrogen 24 mg/dL (7-18) H Creatinine 0.7 MG/DL (0.55-1.30) Estimat Glomerular Filtration Rate > 60 mL/min (>60) Glucose Level 164 MG/DL (74-106) H Uric Acid 1.8 MG/DL (2.6-7.2) L Calcium Level 8.2 MG/DL (8.5-10.1) L Phosphorus Level 3.2 MG/DL (2.5-4.9) Magnesium Level 1.8 MG/DL (1.8-2.4) Total Bilirubin 1.1 MG/DL (0.2-1.0) H Direct Bilirubin 0.7 MG/DL (0.0-0.3) H Aspartate Amino Transf (AST/SGOT) 70 U/L (15-37) H Alanine Aminotransferase (ALT/SGPT) 284 U/L (12-78) H Alkaline Phosphatase 156 U/L (46-116) H C-Reactive Protein, Quantitative < 0.4 mg/dL (0.00-0.90) Pro-B-Type Natriuretic Peptide 294 pg/mL (0-125) H Total Protein 5.9 G/DL (6.4-8.2) L Albumin 2.2 G/DL (3.4-5.0) L Globulin 3.7 g/dL Albumin/Globulin Ratio 0.6 (1.0-2.7) L Test 03/19/20 05:18 03/19/20 07:24 03/19/20 11:06 POC Whole Blood Glucose 160 MG/DL (74-106) H 158 MG/DL (74-106) H Pending Current Medications Medications (Trade) Dose Ordered Sig/Dennis Route PRN Reason Start Time Stop Time Status Last Admin Dose Admin Acetaminophen (Tylenol) 650 mg Q4H PRN ORAL Mild Pain (Pain Scale 1-3) 03/09/20 12:00 04/08/20 11:59 Amlodipine Besylate (Norvasc) 2.5 mg DAILY ORAL 03/20/20 09:00 04/19/20 08:59 Bisacodyl (Dulcolax) 10 mg HSPRN PRN RECTAL Constipation 02/05/20 13:15 05/05/20 13:14 Bisacodyl (Dulcolax) 10 mg Q12H PRN RECTAL Constipation 03/18/20 16:45 06/16/20 16:44 Cefepime HCl 2 gm/ Dextrose 100 ml @ 200 mls/hr Q12HR IVPB 03/19/20 21:00 03/26/20 20:59 UNV Chlorhexidine Gluconate (Marlen-Hex 2%) 1 applic DAILY@2000 TOPIC 02/14/20 20:00 05/14/20 19:59 03/18/20 20:07 Clonidine HCl (Catapres TTS-1) 1 patch QWEEK TDERMAL 03/09/20 21:00 06/07/20 20:59 03/16/20 20:27 Dextrose 1,000 ml @ 0 mls/hr Q24H PRN IV PN interrupted or unavailable 03/09/20 20:00 04/08/20 19:59 Dextrose (Dextrose 50%) 25 ml Q30M PRN IV Hypoglycemia 03/10/20 00:00 06/08/20 00:00 Dextrose (Dextrose 50%) 50 ml Q30M PRN IV Hypoglycemia 03/10/20 00:00 06/08/20 00:00 Enoxaparin Sodium (Lovenox) 40 mg DAILY SUBQ 03/13/20 12:00 06/11/20 11:59 03/19/20 08:42 Fat Emulsion Intravenous 192 ml/Amino Acids/ Electrolytes/ Dextrose 1,992 ml @ 83 mls/hr Q24H IV 03/17/20 20:00 04/16/20 19:59 03/18/20 20:09 Furosemide (Lasix) 20 mg EVERY 8 HOURS IV 03/19/20 14:00 04/18/20 13:59 03/19/20 13:05 Hydralazine HCl (Apresoline) 10 mg Q6H PRN IV For High Blood Pressure 03/09/20 17:00 06/07/20 16:59 03/17/20 09:28 Insulin Aspart (NovoLOG) Q6HR SUBQ 03/10/20 00:00 06/08/20 00:00 03/19/20 11:19 Insulin Detemir (Levemir) 18 units Q12HR SUBQ 03/14/20 21:00 06/10/20 20:59 03/19/20 08:43 Lactulose (Cephulac) 20 gm THREE TIMES A DAY ORAL 03/08/20 13:00 04/07/20 12:59 03/17/20 09:00 Methylprednisolone Sodium Succinate (Solu-MEDROL) 40 mg EVERY 8 HOURS IVP 03/07/20 18:58 06/05/20 18:57 03/19/20 13:05 Pantoprazole (Protonix) 40 mg EVERY 12 HOURS IVP 03/12/20 21:00 04/11/20 20:59 03/19/20 08:42 Polyethylene Glycol (Miralax) 17 gm BEDTIME ORAL 03/08/20 21:00 04/07/20 20:59 03/17/20 21:24 Promethazine HCl/ Codeine (Phenergan with Codeine) 5 ml Q4H PRN ORAL For Cough 02/22/20 12:15 03/23/20 12:14 03/12/20 09:00 Sodium Chloride 500 ml @ 30 mls/hr ONCE ONCE IV 03/19/20 12:30 03/20/20 05:09 03/19/20 13:05 Trimethoprim/ Sulfamethoxazole 20 ml/Dextrose 570 ml @ 380 mls/hr [id number] BACTRIM IV 03/14/20 00:00 03/21/20 00:00 03/19/20 08:48 Vitamin D (Vitamin D) 5,000 unit DAILY ORAL 03/15/20 09:00 04/14/20 08:59 03/17/20 09:01 Kisha Salazar MD Mar 19, 2020 15:41
[2020-03-19 16:00] VITALS: BP 144/88
--- NOTE | 2020-03-19 16:00 | NUR ---
NURSE NOTES: Bed bath given to the patient. The patient tolerated well. Will closely monitor the patient. Will continue plan of care.
[2020-03-19] MEDS: Trimethoprim/Sulfamethoxazole 20 ML in D5W 500ml 550 ML IV SCH ×2 (17:22→23:00)
--- NOTE | 2020-03-19 18:00 | NUR ---
NURSE NOTES: BS 190 noted. Novolog administered per protocol. Will closely monitor the patient. Will continue plan of care.
--- NOTE | 2020-03-19 19:00 | NUR ---
NURSE HAND-OFF REPORT: Important Events on Shift: No acute event_ Still on Bipap 20/10 FiO2 100% Patient Status: Stable, Full code Diet: TPN @ 83mL/hr Pending Orders: N Pending Results/Labs: N Pending notification: N Latest Vital Signs: Temperature 97.2 , Pulse 86 , B/P 144 /88 , Respiratory Rate 20 , O2 SAT 95 , Room Air, O2 Flow Rate 100.0 . Vital Sign Comment: Stable EKG Rhythm: Sinus Rhythm Rhythm change?: N MD Notified?: Courtney Paige MD Response: Message left await call Latest Hassan Fall Score: 35 Fall Risk: Medium Risk Safety Measures: Call light Within Reach, Bed Alarm Zone 1, Side Rails Side Rails x2, Bed position Low and Locked. Fall Precautions: Yellow Socks Yellow Gown Door Sign Patient Fall Education Report given to PRIYANKA Shafer. The patient is stable at this time. Endorsed plan of care.
--- NOTE | 2020-03-19 19:01 | NUR ---
NURSE NOTES: Received report from PRIYANKA Wolfe. Upon assessment patient is awake, responsive to verbal/tactile stimuli with irritable affect. PERRLA. Pt appears unkempt. 5-lead EKG shows SR at 89 bpm. Elevated BP at 149/77. Afebrile. Saturating 93% on BiPAP settings of 20/10 100% fiO2. Pt double lumen WAYNE patent and intact running TPN at 83mL/hr and 3% Hypertonic Saline at 30mL. Made aware of alterations in skin integrity. Condom cath draining to gravity. Bed rails up x3. Bed kept in lowest and locked position. Call light within reach. Will monitor.
[2020-03-19 20:00] VITALS: BP 149/77
[2020-03-19] MEDS: TPN IV SCH (20:41)
[2020-03-19] MEDS: FAT EMULSION 20% IV SCH (20:41)
[2020-03-19] MEDS: Dyna-Hex 2% Top Sol 2oz TOPIC SCH (20:41)
[2020-03-19] MEDS: Miralax 17gm pkt ORAL SCH (20:41)
--- NOTE | 2020-03-19 21:05 | General Progress Note ---
Subjective Allergies: Coded Allergies: No Known Allergies (Unverified , 02/05/20) Subjective above noted BIPAP halo mask and TPN d/w RN advised patient re hepatitis C (+) Ab Objective Last 24 Hour Vital Signs Date Time Temp Pulse Resp B/P (MAP) Pulse Ox O2 Delivery O2 Flow Rate FiO2 03/19/20 20:00 100 03/19/20 20:00 98.8 89 20 149/77 (101) 93 03/19/20 19:13 85 26 91 100 03/19/20 16:00 100 03/19/20 16:00 97.2 86 20 144/88 (106) 95 03/19/20 16:00 Bi-pap 100.0 Bi-pap 03/19/20 16:00 78 03/19/20 15:54 100 39 93 100 03/19/20 12:00 Bi-pap 100.0 Bi-pap 03/19/20 12:00 100 03/19/20 12:00 85 03/19/20 11:17 90 27 95 100 03/19/20 11:00 97.0 86 20 133/87 (102) 95 03/19/20 08:00 96 03/19/20 08:00 100 03/19/20 08:00 Bi-pap 100.0 Bi-pap 03/19/20 07:37 95 33 92 100 03/19/20 07:20 97.8 88 23 145/94 (111) 92 03/19/20 04:00 97.7 92 26 142/104 (117) 95 03/19/20 04:00 Bi-pap 100.0 Bi-pap 03/19/20 04:00 100 03/19/20 04:00 81 03/19/20 03:29 79 18 95 100 03/19/20 00:00 100 03/19/20 00:00 89 03/19/20 00:00 97.5 89 28 138/78 (98) 93 03/19/20 00:00 Bi-pap 100.0 Bi-pap 03/18/20 23:06 89 38 93 100 Intake and Output 03/18/20 03/19/20 19:00 07:00 Intake Total 990 ml 913 ml Output Total 1400 ml 2200 ml Balance -410 ml -1287 ml IV Total 913 ml Other 990 ml Output Urine Total 1400 ml 2200 ml Laboratory Tests 03/18/20 23:09: POC Whole Blood Glucose 209H 03/19/20 04:20: White Blood Count 10.2, Red Blood Count 4.69L, Hemoglobin 13.1L, Hematocrit 40.4L, Mean Corpuscular Volume 86, Mean Corpuscular Hemoglobin 27.9, Mean Corpuscular Hemoglobin Concent 32.5, Red Cell Distribution Width 14.1, Platelet Count 238, Mean Platelet Volume 8.3, Neutrophils (%) (Auto) , Lymphocytes (%) (Auto) , Monocytes (%) (Auto) , Eosinophils (%) (Auto) , Basophils (%) (Auto) , Differential Total Cells Counted 100, Neutrophils % (Manual) 86H, Lymphocytes % (Manual) 4L, Monocytes % (Manual) 10, Eosinophils % (Manual) 0, Basophils % (Manual) 0, Band Neutrophils 0, Platelet Estimate Adequate, Platelet Morphology Normal, Anisocytosis 1+, Sodium Level 128L, Potassium Level 3.8, Chloride Level 93L, Carbon Dioxide Level 33H, Anion Gap 2L, Blood Urea Nitrogen 24H, Creatinine 0.7, Estimat Glomerular Filtration Rate > 60, Glucose Level 164H, Uric Acid 1.8L , Calcium Level 8.2L, Phosphorus Level 3.2, Magnesium Level 1.8, Total Bilirubin 1.1H, Direct Bilirubin 0.7H, Aspartate Amino Transf (AST/SGOT) 70H, Alanine Aminotransferase (ALT/SGPT) 284H, Alkaline Phosphatase 156H, C-Reactive Protein, Quantitative < 0.4, Pro-B-Type Natriuretic Peptide 294H, Total Protein 5.9L, Albumin 2.2L, Globulin 3.7, Albumin/Globulin Ratio 0.6L 03/19/20 05:18: POC Whole Blood Glucose 160H 03/19/20 07:24: POC Whole Blood Glucose 158H 03/19/20 11:06: POC Whole Blood Glucose [Pending] 03/19/20 17:00: POC Whole Blood Glucose 190H 03/19/20 20:23: Arterial Blood pH 7.446, Arterial Blood Partial Pressure CO2 47.0H, Arterial Blood Partial Pressure O2 66.3L, Arterial Blood HCO3 31.6H, Arterial Blood Oxygen Saturation [Pending], Arterial Blood Base Excess 6.5H, Shemar Test Positive Height (Feet): 5 Height (Inches): 10.00 Weight (Pounds): 240 Objective Comfortable appearing on BIPAP and TPN NAD coarse BS RR abd soft ND NT no edema Assessment/Plan Status: stable, progressing Assessment/Plan: Assessment/Plan Assessment/Plan: covid +, resp failure, on BIPAP DM HTN FTT constipation abnormal LFT --> COVID, Hepatitis C Recommendations not stable for PEG could not tolerate NGT placement bowel regimen covid care will fu Kourtney Davila MD Mar 19, 2020 21:05
--- NOTE | 2020-03-19 22:30 | NUR ---
NURSE NOTES: Dr. Davila at bedside. No new orders endorsed. Pt in stable condition.
[2020-03-20] VITALS: BP 145/89
--- NOTE | 2020-03-20 | NUR ---
NURSE NOTES: BSG 152 mg/dl. Insulin given as ordered. Pt saturating 90% on 100% fiO2 and appears to constantly check on O2 monitor. Pt condom cath off and soiled his blanket and gown. When offered to give patient a bed bath multiple times patient becomes very irritable and noncompliant despite all needs met and teaching significance of skin integrity. Pt refuses condom cath and new chucks - only allowing me to change blanket. Offered patient urinal, wipes, norberto, and new gown at bedside table should he choose to change himself. Will attempt again later. Will monitor.
[2020-03-20] MEDS: NovoLOG Insulin Flexpen SUBQ SCH ×4 (00:33→18:11)
--- NOTE | 2020-03-20 02:02 | NUR ---
NURSE NOTES: Patient continues to refuse bed bath despite reassurance. No distress noted. Saturating 93%.
[2020-03-20 04:00] VITALS: BP 131/100
--- NOTE | 2020-03-20 04:30 | NUR ---
NURSE NOTES: Pt allowed bed bath and linen change with help of two nurses. Pt desaturates very quickly. D/w RT to change to shell-mask to prevent leakage since pt self-adjusts his own mask. Taught if he needs patient not to touch mask and utilize call light when needing help.
[2020-03-20] MEDS: Solu-MEDROL 40mg Inj IVP SCH ×3 (05:47→22:11)
[2020-03-20 06:00] LABS: HEMATOCRIT 41.6 % (42.0-52.0); HEMOGLOBIN 13.3 G/DL (14.2-18.0); MEAN CORPUSCULAR VOLUME 86 FL (80-99); PLATELET COUNT 234 K/UL (150-450); RED BLOOD COUNT 4.83 M/UL (4.70-6.10); RED CELL DISTRIBUTION WIDTH 14.2 % (11.6-14.8); WHITE BLOOD COUNT 12.1 K/UL (4.8-10.8)
[2020-03-20 06:29] LABS: ALANINE AMINOTRANSFERASE 272 U/L (12-78); ALBUMIN 2.2 G/DL (3.4-5.0); ALBUMIN/GLOBULIN RATIO 0.6 (1.0-2.7); ALKALINE PHOSPHATASE 165 U/L (46-116); ANION GAP 5 mmol/L (5-15); ASPARTATE AMINO TRANSFERASE 64 U/L (15-37); BILIRUBIN,TOTAL 0.8 MG/DL (0.2-1.0); BLOOD UREA NITROGEN 23 mg/dL (7-18); CALCIUM 8.1 MG/DL (8.5-10.1); CARBON DIOXIDE 33 MMOL/L (21-32); CHLORIDE 95 MMOL/L (98-107); CHOLESTEROL 190 MG/DL (< 200); CREATININE 0.8 MG/DL (0.55-1.30); GAMMA GLUTAMYL TRANSPEPTIDASE 174 U/L (5-85); HDL CHOLESTEROL 38 MG/DL (40-60); POTASSIUM 3.9 MMOL/L (3.5-5.1); SODIUM 133 MMOL/L (136-145); TRIGLYCERIDES 180 MG/DL (30-150)
--- NOTE | 2020-03-20 07:25 | NUR ---
NURSE NOTES: Received patient report from PRIYANKA Shafer. Patient is AO x4. Patient on Bipap 20/10 FiO2 100% with O2 sat of 92%. Pt double lumen WAYNE patent and intact running TPN at 83mL/hr and 3% Hypertonic Saline at 30mL. Patient with condom cath draining well. Bed in lowest position, locked with side rails x2 up. Call light within reach.
--- NOTE | 2020-03-20 07:44 | NUR ---
NURSE HAND-OFF REPORT: Important Events on Shift: n/a Patient Status: stable Diet: TPN Pending Orders: Pending Results/Labs: Pending MD notification: Latest Vital Signs: Temperature 98.7 , Pulse 100 , B/P 131 /100 , Respiratory Rate 20 , O2 SAT 91 , Room Air, O2 Flow Rate 100.0 . Vital Sign Comment: WNL EKG Rhythm: Sinus Rhythm Rhythm change?: N MD Notified?: Courtney Paige MD Response: Message left await call Latest Hassan Fall Score: 35 Fall Risk: Medium Risk Safety Measures: Call light Within Reach, Bed Alarm Zone 1, Side Rails Side Rails x3, Bed position Low and Locked. Fall Precautions: Yellow Socks Yellow Gown Door Sign Patient Fall Education Report given to PRIYANKA Clarke.
[2020-03-20 08:00] VITALS: BP 134/90
[2020-03-20] MEDS: Trimethoprim/Sulfamethoxazole 20 ML in D5W 500ml 550 ML IV SCH ×2 (08:38→15:41)
[2020-03-20] MEDS: Enoxaparin 40mg Inj SUBQ SCH (08:39)
[2020-03-20] MEDS: Pantoprazole Inj IVP SCH ×2 (08:40→21:00)
[2020-03-20] MEDS: Vitamin D 1000 units Tab ORAL SCH (09:00)
[2020-03-20] MEDS: Lactulose 20gm/30ml UDC ORAL SCH ×3 (09:00→18:00)
[2020-03-20] MEDS: Levemir Flexpen SUBQ SCH ×2 (09:29→21:00)
--- NOTE | 2020-03-20 10:07 | General Progress Note ---
Subjective ROS Limited/Unobtainable: Yes Allergies: Coded Allergies: No Known Allergies (Unverified , 02/05/20) Objective Last 24 Hour Vital Signs Date Time Temp Pulse Resp B/P (MAP) Pulse Ox O2 Delivery O2 Flow Rate FiO2 03/20/20 08:00 97.8 100 21 134/90 (105) 91 03/20/20 07:30 93 27 92 100 03/20/20 04:00 110 03/20/20 04:00 Bi-pap 100.0 Bi-pap 03/20/20 04:00 100 03/20/20 04:00 98.7 100 20 131/100 (110) 91 03/20/20 03:13 86 27 93 100 03/20/20 00:00 80 03/20/20 00:00 99.5 84 20 145/89 (107) 91 03/20/20 00:00 Bi-pap 100.0 Bi-pap 03/19/20 23:28 85 26 90 100 03/19/20 20:00 100 03/19/20 20:00 98.8 89 20 149/77 (101) 93 03/19/20 20:00 Bi-pap 100.0 Bi-pap 03/19/20 20:00 88 03/19/20 19:13 85 26 91 100 03/19/20 16:00 100 03/19/20 16:00 97.2 86 20 144/88 (106) 95 03/19/20 16:00 Bi-pap 100.0 Bi-pap 03/19/20 16:00 78 03/19/20 15:54 100 39 93 100 03/19/20 12:00 Bi-pap 100.0 Bi-pap 03/19/20 12:00 100 03/19/20 12:00 85 03/19/20 11:17 90 27 95 100 03/19/20 11:00 97.0 86 20 133/87 (102) 95 Intake and Output 03/19/20 03/20/20 19:00 07:00 Intake Total 1259 ml 3225.67 ml Output Total 2500 ml 1700 ml Balance -1241 ml 1525.67 ml Intake Oral 996 ml IV Total 1259 ml 2229.67 ml Output Urine Total 2500 ml 1700 ml Laboratory Tests 03/19/20 11:06: POC Whole Blood Glucose [Pending] 03/19/20 17:00: POC Whole Blood Glucose 190H 03/19/20 20:23: Arterial Blood pH 7.446, Arterial Blood Partial Pressure CO2 47.0H, Arterial Blood Partial Pressure O2 66.3L, Arterial Blood HCO3 31.6H, Arterial Blood Oxygen Saturation [Pending], Arterial Blood Base Excess 6.5H, Shemar Test Positive 03/19/20 21:16: POC Whole Blood Glucose 117H 03/20/20 00:24: POC Whole Blood Glucose 150H 03/20/20 03:55: White Blood Count 12.1H, Red Blood Count 4.83, Hemoglobin 13.3L, Hematocrit 41 .6L, Mean Corpuscular Volume 86, Mean Corpuscular Hemoglobin 27.5, Mean Corpuscular Hemoglobin Concent 31.9L, Red Cell Distribution Width 14.2, Platelet Count 234, Mean Platelet Volume 7.4, Neutrophils (%) (Auto) , Lymphocytes (%) (Auto) , Monocytes (%) (Auto) , Eosinophils (%) (Auto) , Basophils (%) (Auto) , Differential Total Cells Counted 100, Neutrophils % (Manual) 94H, Lymphocytes % (Manual) 2L, Monocytes % (Manual) 4, Eosinophils % (Manual) 0, Basophils % (Manual) 0, Band Neutrophils 0, Platelet Estimate Adequate, Platelet Morphology Normal, Red Blood Cell Morphology Normal, Sodium Level 133L, Potassium Level 3.9, Chloride Level 95L, Carbon Dioxide Level 33H, Anion Gap 5, Blood Urea Nitrogen 23H, Creatinine 0.8, Estimat Glomerular Filtration Rate > 60, Glucose Level 170H, Uric Acid 1.9L, Calcium Level 8.1L, Phosphorus Level 3.0, Magnesium Level 1.8, Total Bilirubin 0.8, Gamma Glutamyl Transpeptidase 174H, Aspartate Amino Transf (AST/SGOT) 64H, Alanine Aminotransferase (ALT/SGPT) 272H, Alkaline Phosphatase 165H, Lactate Dehydrogenase 411H, C-Reactive Protein, Quantitative < 0.4, Pro-B-Type Natriuretic Peptide 196H, Total Protein 5.9L, Albumin 2.2L, Globulin 3.7, Albumin/Globulin Ratio 0.6L, Triglycerides Level 180H, Cholesterol Level 190, LDL Cholesterol 121H, HDL Cholesterol 38L, Cholesterol/HDL Ratio 5.0H, Hepatitis C Antibody [Pending], Hepatitis C RNA (PCR) IUs/ml [Pending], Hepatitis C RNA (PCR) log IUs/ml [Pending] 03/20/20 05:00: POC Whole Blood Glucose [Pending] Height (Feet): 5 Height (Inches): 10.00 Weight (Pounds): 240 General Appearance: no apparent distress EENT: normal ENT inspection Neck: supple Cardiovascular: normal rate Respiratory/Chest: decreased breath sounds Abdomen: hypoactive bowel sounds Extremities: non-tender Assessment/Plan Status: stable, progressing Assessment/Plan: covid + on BIPAP DM HTN FTT constipation not stable for PEG could not tolerate NGT placement TPN for now bowel regimen covid care rising LFTS>>> will monitor>> most likely due to TPN will Da Wilson MD Mar 20, 2020 10:07
--- NOTE | 2020-03-20 10:34 | Pulmonology Progress Note ---
Subjective ROS Limited/Unobtainable: Yes Interval Events: tolerating BiPAP; saturating better Constitutional: Reports: fatigue, other - on bipap, sats stable ; Denies: fever HEENT: Repors: no symptoms Respiratory: Reports: dry cough, shortness of breath Cardiovascular: Reports: no symptoms Gastrointestinal/Abdominal: Denies: nausea, vomiting, diarrhea Psychiatric: Denies: anxiety Skin: Denies: rash Musculoskeletal: Denies: pain Allergies: Coded Allergies: No Known Allergies (Unverified , 02/05/20) Objective Last 24 Hour Vital Signs Date Time Temp Pulse Resp B/P (MAP) Pulse Ox O2 Delivery O2 Flow Rate FiO2 03/20/20 08:00 97.8 100 21 134/90 (105) 91 03/20/20 08:00 100 03/20/20 08:00 Bi-pap 100.0 Bi-pap 03/20/20 08:00 83 03/20/20 07:30 93 27 92 100 03/20/20 04:00 110 03/20/20 04:00 Bi-pap 100.0 Bi-pap 03/20/20 04:00 100 03/20/20 04:00 98.7 100 20 131/100 (110) 91 03/20/20 03:13 86 27 93 100 03/20/20 00:00 80 03/20/20 00:00 99.5 84 20 145/89 (107) 91 03/20/20 00:00 Bi-pap 100.0 Bi-pap 03/19/20 23:28 85 26 90 100 03/19/20 20:00 100 03/19/20 20:00 98.8 89 20 149/77 (101) 93 03/19/20 20:00 Bi-pap 100.0 Bi-pap 03/19/20 20:00 88 03/19/20 19:13 85 26 91 100 03/19/20 16:00 100 03/19/20 16:00 97.2 86 20 144/88 (106) 95 03/19/20 16:00 Bi-pap 100.0 Bi-pap 03/19/20 16:00 78 03/19/20 15:54 100 39 93 100 03/19/20 12:00 Bi-pap 100.0 Bi-pap 03/19/20 12:00 100 03/19/20 12:00 85 03/19/20 11:17 90 27 95 100 03/19/20 11:00 97.0 86 20 133/87 (102) 95 Intake and Output 03/19/20 03/20/20 19:00 07:00 Intake Total 1259 ml 3225.67 ml Output Total 2500 ml 1700 ml Balance -1241 ml 1525.67 ml Intake Oral 996 ml IV Total 1259 ml 2229.67 ml Output Urine Total 2500 ml 1700 ml Objective 03/20 saturating at 91% on BiPAP 03/19 saturating at 96% on BiPAP 03/18 saturating at 94-97% on BiPAP 03/17 saturating at 91-92% on the current BiPAP setting 03/08 saturating in the low 90s on BiPAP 03/06 saturating at 85-88% on BiPAP 03/05 saturating 77-88% on BiPAP / now saturating at 89-90% on BiPAP 03/03 saturating in the low 80s on BiPAP 02/28 saturating 93% on BiPAP 02/23 saturating 94% on BiPAP 02/22 tolerating BiPAP, saturating at 90% 02/21 now on BiPAP, saturating at 95% 02/18 still on 15L NRB mask saturating 88-93% 02/17 now on 15L NRB mask saturating at 91% 02/17/2020 now on 2 lpm NC 02/16/2020 no change 02/15/2020 no major change 02/14/2020 saturating well on RAD; NAD 02/13/2020 pt asleep; saturating well on RA 02/12/2020 sitting up in a chair; saturating well on RA 02/11/2020 back on isolation due to COVID-19 positive status again; currently being worked up for positive blood culture 02/09/2020 off isolation; saturating well on RA 02/08/2020 feeling better; COVID-19 PCR neg 02/07/2020 reports feeling better; COVID-19 PCR pending 02/06/2020 pt laying in bed; reports feeling better General Appearance: WD/WN, no acute distress HEENT: normocephalic, atraumatic Respiratory: chest wall non-tender Cardiovascular: normal rate, regular rhythm Abdomen: normal bowel sounds, soft, non tender, other - obese Microbiology Date/Time Source Procedure Growth Status 03/18/20 06:15 Urine,Clean Catch Urine Culture - Preliminary Escherichia Coli - Esbl Resulted 03/17/20 18:35 Blood Blood Culture - Preliminary NO GROWTH AFTER 48 HOURS Resulted 03/17/20 18:30 Blood Blood Culture - Preliminary NO GROWTH AFTER 48 HOURS Resulted Laboratory Tests 03/19/20 11:06: POC Whole Blood Glucose [Pending] 03/19/20 17:00: POC Whole Blood Glucose 190H 03/19/20 20:23: Arterial Blood pH 7.446, Arterial Blood Partial Pressure CO2 47.0H, Arterial Blood Partial Pressure O2 66.3L, Arterial Blood HCO3 31.6H, Arterial Blood Oxygen Saturation [Pending], Arterial Blood Base Excess 6.5H, Shemar Test Positive 03/19/20 21:16: POC Whole Blood Glucose 117H 03/20/20 00:24: POC Whole Blood Glucose 150H 03/20/20 03:55: White Blood Count 12.1H, Red Blood Count 4.83, Hemoglobin 13.3L, Hematocrit 41.6L, Mean Corpuscular Volume 86, Mean Corpuscular Hemoglobin 27.5, Mean Corpuscular Hemoglobin Concent 31.9L, Red Cell Distribution Width 14.2, Platelet Count 234, Mean Platelet Volume 7.4, Neutrophils (%) (Auto) , Lymphocytes (%) (Auto) , Monocytes (%) (Auto) , Eosinophils (%) (Auto) , Basophils (%) (Auto) , Differential Total Cells Counted 100, Neutrophils % (Manual) 94H, Lymphocytes % (Manual) 2L, Monocytes % (Manual) 4, Eosinophils % (Manual) 0, Basophils % (Manual) 0, Band Neutrophils 0, Platelet Estimate Adequate, Platelet Morphology Normal, Red Blood Cell Morphology Normal, Sodium Level 133L, Potassium Level 3.9, Chloride Level 95L, Carbon Dioxide Level 33H, Anion Gap 5, Blood Urea Nitrogen 23H, Creatinine 0.8, Estimat Glomerular Filtration Rate > 60, Glucose Level 170H, Uric Acid 1.9L, Calcium Level 8.1L, Phosphorus Level 3.0, Magnesium Level 1.8, Total Bilirubin 0.8, Gamma Glutamyl Transpeptidase 174H, Aspartate Amino Transf (AST/SGOT) 64H, Alanine Aminotransferase (ALT/SGPT) 272H, Alkaline Phosphatase 165H, Lactate Dehydrogenase 411H, C-Reactive Protein, Quantitative < 0.4, Pro-B-Type Natriuretic Peptide 196H, Total Protein 5.9L, Albumin 2.2L, Globulin 3.7, Albumin/Globulin Ratio 0.6L, Triglycerides Level 180H, Cholesterol Level 190, LDL Cholesterol 121H, HDL Cholesterol 38L, Cholesterol/HDL Ratio 5.0H, Hepatitis C Antibody [Pending], Hepatitis C RNA (PCR) IUs/ml [Pending], Hepatitis C RNA (PCR) log IUs/ml [Pending] 03/20/20 05:00: POC Whole Blood Glucose [Pending] Current Medications Medications (Trade) Dose Ordered Sig/Dennis Route PRN Reason Start Time Stop Time Status Last Admin Dose Admin Acetaminophen (Tylenol) 650 mg Q4H PRN ORAL Mild Pain (Pain Scale 1-3) 03/09/20 12:00 04/08/20 11:59 Amlodipine Besylate (Norvasc) 2.5 mg DAILY ORAL 03/20/20 09:00 04/19/20 08:59 Bisacodyl (Dulcolax) 10 mg HSPRN PRN RECTAL Constipation 02/05/20 13:15 05/05/20 13:14 Bisacodyl (Dulcolax) 10 mg Q12H PRN RECTAL Constipation 03/18/20 16:45 06/16/20 16:44 Cefepime HCl 2 gm/ Dextrose 100 ml @ 200 mls/hr Q12HR IVPB 03/19/20 21:00 03/26/20 20:59 03/20/20 08:38 Chlorhexidine Gluconate (Marlen-Hex 2%) 1 applic DAILY@2000 TOPIC 02/14/20 20:00 05/14/20 19:59 03/19/20 20:41 Clonidine HCl (Catapres TTS-1) 1 patch QWEEK TDERMAL 03/09/20 21:00 06/07/20 20:59 03/16/20 20:27 Dextrose 1,000 ml @ 0 mls/hr Q24H PRN IV PN interrupted or unavailable 03/09/20 20:00 04/08/20 19:59 Dextrose (Dextrose 50%) 25 ml Q30M PRN IV Hypoglycemia 03/10/20 00:00 06/08/20 00:00 Dextrose (Dextrose 50%) 50 ml Q30M PRN IV Hypoglycemia 03/10/20 00:00 06/08/20 00:00 Enoxaparin Sodium (Lovenox) 40 mg DAILY SUBQ 03/13/20 12:00 06/11/20 11:59 03/20/20 08:39 Fat Emulsion Intravenous 192 ml/Amino Acids/ Electrolytes/ Dextrose 1,992 ml @ 83 mls/hr Q24H IV 03/17/20 20:00 04/16/20 19:59 03/19/20 20:41 Furosemide (Lasix) 20 mg EVERY 8 HOURS IV 03/19/20 14:00 04/18/20 13:59 03/20/20 05:47 Hydralazine HCl (Apresoline) 10 mg Q6H PRN IV For High Blood Pressure 03/09/20 17:00 06/07/20 16:59 03/17/20 09:28 Insulin Aspart (NovoLOG) Q6HR SUBQ 03/10/20 00:00 06/08/20 00:00 03/20/20 05:40 Insulin Detemir (Levemir) 18 units Q12HR SUBQ 03/14/20 21:00 06/10/20 20:59 03/20/20 09:29 Lactulose (Cephulac) 20 gm THREE TIMES A DAY ORAL 03/08/20 13:00 04/07/20 12:59 03/17/20 09:00 Methylprednisolone Sodium Succinate (Solu-MEDROL) 40 mg EVERY 8 HOURS IVP 03/07/20 18:58 06/05/20 18:57 03/20/20 05:47 Pantoprazole (Protonix) 40 mg EVERY 12 HOURS IVP 03/12/20 21:00 04/11/20 20:59 03/20/20 08:40 Polyethylene Glycol (Miralax) 17 gm BEDTIME ORAL 03/08/20 21:00 04/07/20 20:59 03/19/20 20:41 Promethazine HCl/ Codeine (Phenergan with Codeine) 5 ml Q4H PRN ORAL For Cough 02/22/20 12:15 03/23/20 12:14 03/12/20 09:00 Sodium Chloride 250 ml @ 30 mls/hr ONCE ONCE IV 03/20/20 10:30 03/20/20 18:49 Trimethoprim/ Sulfamethoxazole 20 ml/Dextrose 570 ml @ 380 mls/hr [id number] BACTRIM IV 03/19/20 16:00 03/26/20 16:00 03/20/20 08:38 Vitamin D (Vitamin D) 5,000 unit DAILY ORAL 03/15/20 09:00 04/14/20 08:59 03/17/20 09:01 Assessment/Plan Assessment/Plan 1.COVID-19 pneumonia. - last COVID-19 test positive after two negative tests - CTA 02/05/2020 ground-glass and consolidating infiltrates in the dependent portions of both lower lobes and to lesser degree the upper lobes consistent with bilateral pneumonia. No evidence of pulmonary embolus. - CXR 02/17/2020 worsening bilateral infiltrates; Repeat CXR shows basilar linear densities - CT chest 02/18 shows Increased extensive patchy ground-glass opacities and densities throughout the lungs, suggestive of Covid 19 infection. - currently on BiPAP. Saturations 90%. - Mycoplasma pneumoniae IgG 273; M. pneumoniae IgM titer within normal limits - D-dimer 0.90; on full dose Lovenox -Discontinued Decadron, now on Solumedrol - s/p remdesivir - is net I/O negative -We will continue TPN He has had a progressive increase in LDH,-started on Bactrim due to concern about pneumocystis. - Looking unchanged today. - CXR 03/17 no significant change 2. Initial negative rapid COVID-19 gene assay.- however repeat COVID-19 test positive 3. Smoker. 4. DVT ppx - on lovenox 5. Hypertension - on hydralazine, and norvasc 6. Blood culture positive for gram positive cocci staph aureus 02/06 - on Abx - CT abd/pelvis showed no abscess per ID - TTE/ FERNY held off due to COVID-19 status - repeat BCx negative for growth 03/17 7. Leukocytosis; resolved - ID following 8. Gram negative zack UTI - s/p rocephin per ID recs - now off rocephin, now on cefepime per ID 9. Elevated LFT - positive Hep C Continue BiPAP now on lasix (03/19-) The care for this patient was discussed with my supervising physician Time spent for this case was approximately 31 minutes Edilson Marinelli Mar 20, 2020 10:34
--- NOTE | 2020-03-20 10:42 | Nephrology Progress Note ---
Assessment/Plan Problem List: (1) Dehydration (2) Electrolyte imbalance (3) COVID-19 virus infection (4) Pneumonia (5) DMII (diabetes mellitus, type 2) (6) Protein malnutrition Assessment Azotemia, hypernatremia Hypoalbuminemia Staff Otilia bacteremia COVID-19 isolation, pneumonia, bilateral infiltrate Hypertension Diabetes mellitus History of smoking Plan March 20: Remains on TPN. Labs reviewed. Serum sodium higher on IV Lasix and 3% saline infusion. Continue TPN as is. Continue to monitor renal parameters and electrolytes. Discussed with Dr. Mata March 19: Remains on TPN. Labs reviewed. Serum sodium 128. Will give 3% saline with IV Lasix. Continue to monitor electrolytes. No change in TPN composition. Discussed with pharmacy. March 18: Remains on TPN. Labs reviewed. Discussed with pharmacist. Will give 3 doses of IV Lasix 20 mg every 8 hours. Continue to monitor serum sodium electrolytes uric acid. White blood cells down. Continue per consultants. March 17: On TPN. Labs reviewed. Discussed with pharmacist. Sodium content increase. Continue to monitor CMP. Patient continues to have leukocytosis. March 16: On TPN. Labs reviewed. Discussed with pharmacist. Appropriate changes made. Continue to monitor electrolytes. March 15: Remains on TPN. Labs reviewed. Discussed with pharmacist. Continue per current management. March 14: Remains on TPN. Labs reviewed, stable. Vitamin D level low, replacement ordered. Continue to monitor electrolytes and renal parameters. March 13: Patient remains on TPN. Discussed with pharmacist. TPN's sodium content adjusted. Labs reviewed. Continue to monitor electrolytes. Blood pressure remains stable. Continue per consultants. March 12: Patient on TPN. Labs reviewed. CPK remains elevated. Abnormal electrolytes and high blood sugar discussed with pharmacist and TPN adjusted. Continue to monitor labs. Oral Protonix added. Ibuprofen discontinued. Can co ntinue to monitor electrolytes and chemistries. Levemir for high blood sugar added. March 11: Patient on TPN. Labs as of 11:15 AM is still pending. Continue per current treatment plan. Will check labs and adjust TPN as needed. Continue per consultants. March 10: Patient on TPN. Labs reviewed. Electrolytes overall stable. CPK is elevated. Will monitor electrolyte, CPK level, lipid panel. Continue per consultants. Discussed with pharmacist. Discussed with RN. Nutritional evaluation noted. Previously: D5W 100 cc an hour Monitor electrolytes renal parameters TPN and Intralipid ordered Will follow Continue per consultants Dietary consult requested Subjective ROS Limited/Unobtainable: Yes Objective Objective Last 24 Hour Vital Signs Date Time Temp Pulse Resp B/P (MAP) Pulse Ox O2 Delivery O2 Flow Rate FiO2 03/20/20 08:00 97.8 100 21 134/90 (105) 91 03/20/20 08:00 100 03/20/20 08:00 Bi-pap 100.0 Bi-pap 03/20/20 08:00 83 03/20/20 07:30 93 27 92 100 03/20/20 04:00 110 03/20/20 04:00 Bi-pap 100.0 Bi-pap 03/20/20 04:00 100 03/20/20 04:00 98.7 100 20 131/100 (110) 91 03/20/20 03:13 86 27 93 100 03/20/20 00:00 80 03/20/20 00:00 99.5 84 20 145/89 (107) 91 03/20/20 00:00 Bi-pap 100.0 Bi-pap 03/19/20 23:28 85 26 90 100 03/19/20 20:00 100 03/19/20 20:00 98.8 89 20 149/77 (101) 93 03/19/20 20:00 Bi-pap 100.0 Bi-pap 03/19/20 20:00 88 03/19/20 19:13 85 26 91 100 03/19/20 16:00 100 03/19/20 16:00 97.2 86 20 144/88 (106) 95 03/19/20 16:00 Bi-pap 100.0 Bi-pap 03/19/20 16:00 78 03/19/20 15:54 100 39 93 100 03/19/20 12:00 Bi-pap 100.0 Bi-pap 03/19/20 12:00 100 03/19/20 12:00 85 03/19/20 11:17 90 27 95 100 03/19/20 11:00 97.0 86 20 133/87 (102) 95 Intake and Output 03/19/20 03/20/20 19:00 07:00 Intake Total 1259 ml 3225.67 ml Output Total 2500 ml 1700 ml Balance -1241 ml 1525.67 ml Intake Oral 996 ml IV Total 1259 ml 2229.67 ml Output Urine Total 2500 ml 1700 ml Current Medications Medications (Trade) Dose Ordered Sig/Dennis Route PRN Reason Start Time Stop Time Status Last Admin Dose Admin Acetaminophen (Tylenol) 650 mg Q4H PRN ORAL Mild Pain (Pain Scale 1-3) 03/09/20 12:00 04/08/20 11:59 Amlodipine Besylate (Norvasc) 2.5 mg DAILY ORAL 03/20/20 09:00 04/19/20 08:59 Bisacodyl (Dulcolax) 10 mg HSPRN PRN RECTAL Constipation 02/05/20 13:15 05/05/20 13:14 Bisacodyl (Dulcolax) 10 mg Q12H PRN RECTAL Constipation 03/18/20 16:45 06/16/20 16:44 Cefepime HCl 2 gm/ Dextrose 100 ml @ 200 mls/hr Q12HR IVPB 03/19/20 21:00 03/26/20 20:59 03/20/20 08:38 Chlorhexidine Gluconate (Marlen-Hex 2%) 1 applic DAILY@2000 TOPIC 02/14/20 20:00 05/14/20 19:59 03/19/20 20:41 Clonidine HCl (Catapres TTS-1) 1 patch QWEEK TDERMAL 03/09/20 21:00 06/07/20 20:59 03/16/20 20:27 Dextrose 1,000 ml @ 0 mls/hr Q24H PRN IV PN interrupted or unavailable 03/09/20 20:00 04/08/20 19:59 Dextrose (Dextrose 50%) 25 ml Q30M PRN IV Hypoglycemia 03/10/20 00:00 06/08/20 00:00 Dextrose (Dextrose 50%) 50 ml Q30M PRN IV Hypoglycemia 03/10/20 00:00 06/08/20 00:00 Enoxaparin Sodium (Lovenox) 40 mg DAILY SUBQ 03/13/20 12:00 06/11/20 11:59 03/20/20 08:39 Fat Emulsion Intravenous 192 ml/Amino Acids/ Electrolytes/ Dextrose 1,992 ml @ 83 mls/hr Q24H IV 03/17/20 20:00 04/16/20 19:59 03/19/20 20:41 Furosemide (Lasix) 20 mg EVERY 8 HOURS IV 03/19/20 14:00 04/18/20 13:59 03/20/20 05:47 Hydralazine HCl (Apresoline) 10 mg Q6H PRN IV For High Blood Pressure 03/09/20 17:00 06/07/20 16:59 03/17/20 09:28 Insulin Aspart (NovoLOG) Q6HR SUBQ 03/10/20 00:00 06/08/20 00:00 03/20/20 05:40 Insulin Detemir (Levemir) 18 units Q12HR SUBQ 03/14/20 21:00 06/10/20 20:59 03/20/20 09:29 Lactulose (Cephulac) 20 gm THREE TIMES A DAY ORAL 03/08/20 13:00 04/07/20 12:59 03/17/20 09:00 Methylprednisolone Sodium Succinate (Solu-MEDROL) 40 mg EVERY 8 HOURS IVP 03/07/20 18:58 06/05/20 18:57 03/20/20 05:47 Pantoprazole (Protonix) 40 mg EVERY 12 HOURS IVP 03/12/20 21:00 04/11/20 20:59 03/20/20 08:40 Polyethylene Glycol (Miralax) 17 gm BEDTIME ORAL 03/08/20 21:00 04/07/20 20:59 03/19/20 20:41 Promethazine HCl/ Codeine (Phenergan with Codeine) 5 ml Q4H PRN ORAL For Cough 02/22/20 12:15 03/23/20 12:14 03/12/20 09:00 Sodium Chloride 250 ml @ 30 mls/hr ONCE ONCE IV 03/20/20 10:30 03/20/20 18:49 Trimethoprim/ Sulfamethoxazole 20 ml/Dextrose 570 ml @ 380 mls/hr [id number] BACTRIM IV 03/19/20 16:00 03/26/20 16:00 03/20/20 08:38 Vitamin D (Vitamin D) 5,000 unit DAILY ORAL 03/15/20 09:00 04/14/20 08:59 03/17/20 09:01 Laboratory Tests 03/19/20 11:06: POC Whole Blood Glucose [Pending] 03/19/20 17:00: POC Whole Blood Glucose 190H 03/19/20 20:23: Arterial Blood pH 7.446, Arterial Blood Partial Pressure CO2 47.0H, Arterial Blood Partial Pressure O2 66.3L, Arterial Blood HCO3 31.6H, Arterial Blood Oxygen Saturation [Pending], Arterial Blood Base Excess 6.5H, Shemar Test Positive 03/19/20 21:16: POC Whole Blood Glucose 117H 03/20/20 00:24: POC Whole Blood Glucose 150H 03/20/20 03:55: White Blood Count 12.1H, Red Blood Count 4.83, Hemoglobin 13.3L, Hematocrit 41.6L, Mean Corpuscular Volume 86, Mean Corpuscular Hemoglobin 27.5, Mean Corpuscular Hemoglobin Concent 31.9L, Red Cell Distribution Width 14.2, Platelet Count 234, Mean Platelet Volume 7.4, Neutrophils (%) (Auto) , Lymphocytes (%) (Auto) , Monocytes (%) (Auto) , Eosinophils (%) (Auto) , Basophils (%) (Auto) , Differential Total Cells Counted 100, Neutrophils % (Manual) 94H, Lymphocytes % (Manual) 2L, Monocytes % (Manual) 4, Eosinophils % (Manual) 0, Basophils % (Manual) 0, Band Neutrophils 0, Platelet Estimate Adequate, Platelet Morphology Normal, Red Blood Cell Morphology Normal, Sodium Level 133L, Potassium Level 3 .9, Chloride Level 95L, Carbon Dioxide Level 33H, Anion Gap 5, Blood Urea N itrogen 23H, Creatinine 0.8, Estimat Glomerular Filtration Rate > 60, Glucose Level 170H, Uric Acid 1.9L, Calcium Level 8.1L, Phosphorus Level 3.0, Magnesium Level 1.8, Total Bilirubin 0.8, Gamma Glutamyl Transpeptidase 174H, Aspartate Amino Transf (AST/SGOT) 64H, Alanine Aminotransferase (ALT/SGPT) 272H, Alkaline Phosphatase 165H, Lactate Dehydrogenase 411H, C-Reactive Protein, Quantitative < 0.4, Pro-B-Type Natriuretic Peptide 196H, Total Protein 5.9L, Albumin 2.2L, Globulin 3.7, Albumin/Globulin Ratio 0.6L, Triglycerides Level 180H, Cholesterol Level 190, LDL Cholesterol 121H, HDL Cholesterol 38L, Cholesterol/HDL Ratio 5.0H, Hepatitis C Antibody [Pending], Hepatitis C RNA (PCR) IUs/ml [Pending], Hepatitis C RNA (PCR) log IUs/ml [Pending] 03/20/20 05:00: POC Whole Blood Glucose [Pending] Height (Feet): 5 Height (Inches): 10.00 Weight (Pounds): 240 Cardiovascular: tachycardia Respiratory/Chest: decreased breath sounds Abdomen: distended Rubin Cooper MD Mar 20, 2020 10:42
[2020-03-20 12:00] VITALS: BP 140/88
--- NOTE | 2020-03-20 12:56 | NUR ---
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
[2020-03-20 16:00] VITALS: BP 135/76
--- NOTE | 2020-03-20 19:13 | Cardiology Progress Note ---
Assessment/Plan Assessment/Plan Acute covid 19 pneumonia chest pain possible M/S infiltrate bilat bacteremia drug free for 28 years his of ivda hypernatremia / hyponatremai mild abn lfts on bipap hypoxemia unlikely cardiac related ct of the chest done most recently showed extensive infiltrate felt to be due to worsening covid 19 infection off anticoagulation except for dvt ppx dose continue supportive care bp is ok,on tts patch and iv hydralazine not takign any po meds per rn echo reviewed afew days ago showed still normal lv function no valvular dysfunction cxr personlly reviewed bnp improved today comrped to a few day ago desptie 3% saline tele reviewed personally hsi hypoxemic still consider repeating ct chest ? he ws on full dose heparin previously as well Subjective Subjective pt now in covid 19 isolation per rn: patient is AO x4. Patient on Bipap 20/10 FiO2 100% with O2 sat of 92% pt moves a lttle in bed now desats quicklty whe bipa is tken off . Objective Last 24 Hour Vital Signs Date Time Temp Pulse Resp B/P (MAP) Pulse Ox O2 Delivery O2 Flow Rate FiO2 03/20/20 16:00 81 03/20/20 16:00 100 03/20/20 16:00 Bi-pap 100.0 Bi-pap 03/20/20 16:00 98.2 87 22 135/76 (95) 92 03/20/20 13:46 90 25 91 100 03/20/20 12:00 82 03/20/20 12:00 100 03/20/20 12:00 Bi-pap 100.0 Bi-pap 03/20/20 12:00 98.0 95 20 140/88 (105) 91 03/20/20 08:00 97.8 100 21 134/90 (105) 91 03/20/20 08:00 100 03/20/20 08:00 Bi-pap 100.0 Bi-pap 03/20/20 08:00 83 03/20/20 07:30 93 27 92 100 03/20/20 04:00 110 03/20/20 04:00 Bi-pap 100.0 Bi-pap 03/20/20 04:00 100 03/20/20 04:00 98.7 100 20 131/100 (110) 91 03/20/20 03:13 86 27 93 100 03/20/20 00:00 80 03/20/20 00:00 99.5 84 20 145/89 (107) 91 03/20/20 00:00 Bi-pap 100.0 Bi-pap 03/19/20 23:28 85 26 90 100 03/19/20 20:00 100 03/19/20 20:00 98.8 89 20 149/77 (101) 93 03/19/20 20:00 Bi-pap 100.0 Bi-pap 03/19/20 20:00 88 03/19/20 19:13 85 26 91 100 Intake and Output 03/19/20 03/20/20 19:00 07:00 Intake Total 1259 ml 3225.67 ml Output Total 2500 ml 1700 ml Balance -1241 ml 1525.67 ml Intake Oral 996 ml IV Total 1259 ml 2229.67 ml Output Urine Total 2500 ml 1700 ml Laboratory Tests Test 03/19/20 20:23 03/19/20 21:16 03/20/20 00:24 03/20/20 03:55 Arterial Blood pH 7.446 (7.350-7.450) Arterial Blood Partial Pressure CO2 47.0 mmHg (35.0-45.0) H Arterial Blood Partial Pressure O2 66.3 mmHg (75.0-100.0) L Arterial Blood HCO3 31.6 mmol/L (22.0-26.0) H Arterial Blood Oxygen Saturation Pending Arterial Blood Base Excess 6.5 (-2-2) H Shemar Test Positive POC Whole Blood Glucose 117 MG/DL (74-106) H 150 MG/DL (74-106) H White Blood Count 12.1 K/UL (4.8-10.8) H Red Blood Count 4.83 M/UL (4.70-6.10) Hemoglobin 13.3 G/DL (14.2-18.0) L Hematocrit 41.6 % (42.0-52.0) L Mean Corpuscular Volume 86 FL (80-99) Mean Corpuscular Hemoglobin 27.5 PG (27.0-31.0) Mean Corpuscular Hemoglobin Concent 31.9 G/DL (32.0-36.0) L Red Cell Distribution Width 14.2 % (11.6-14.8) Platelet Count 234 K/UL (150-450) Mean Platelet Volume 7.4 FL (6.5-10.1) Neutrophils (%) (Auto) % (45.0-75.0) Lymphocytes (%) (Auto) % (20.0-45.0) Monocytes (%) (Auto) % (1.0-10.0) Eosinophils (%) (Auto) % (0.0-3.0) Basophils (%) (Auto) % (0.0-2.0) Differential Total Cells Counted 100 Neutrophils % (Manual) 94 % (45-75) H Lymphocytes % (Manual) 2 % (20-45) L Monocytes % (Manual) 4 % (1-10) Eosinophils % (Manual) 0 % (0-3) Basophils % (Manual) 0 % (0-2) Band Neutrophils 0 % (0-8) Platelet Estimate Adequate Platelet Morphology Normal Red Blood Cell Morphology Normal Sodium Level 133 MMOL/L (136-145) L Potassium Level 3.9 MMOL/L (3.5-5.1) Chloride Level 95 MMOL/L (98-107) L Carbon Dioxide Level 33 MMOL/L (21-32) H Anion Gap 5 mmol/L (5-15) Blood Urea Nitrogen 23 mg/dL (7-18) H Creatinine 0.8 MG/DL (0.55-1.30) Estimat Glomerular Filtration Rate > 60 mL/min (>60) Glucose Level 170 MG/DL (74-106) H Uric Acid 1.9 MG/DL (2.6-7.2) L Calcium Level 8.1 MG/DL (8.5-10.1) L Phosphorus Level 3.0 MG/DL (2.5-4.9) Magnesium Level 1.8 MG/DL (1.8-2.4) Total Bilirubin 0.8 MG/DL (0.2-1.0) Gamma Glutamyl Transpeptidase 174 U/L (5-85) H Aspartate Amino Transf (AST/SGOT) 64 U/L (15-37) H Alanine Aminotransferase (ALT/SGPT) 272 U/L (12-78) H Alkaline Phosphatase 165 U/L (46-116) H Lactate Dehydrogenase 411 U/L (81-234) H C-Reactive Protein, Quantitative < 0.4 mg/dL (0.00-0.90) Pro-B-Type Natriuretic Peptide 196 pg/mL (0-125) H Total Protein 5.9 G/DL (6.4-8.2) L Albumin 2.2 G/DL (3.4-5.0) L Globulin 3.7 g/dL Albumin/Globulin Ratio 0.6 (1.0-2.7) L Triglycerides Level 180 MG/DL (30-150) H Cholesterol Level 190 MG/DL (< 200) LDL Cholesterol 121 mg/dL (<100) H HDL Cholesterol 38 MG/DL (40-60) L Cholesterol/HDL Ratio 5.0 (3.3-4.4) H Hepatitis C Antibody Pending Hepatitis C RNA (PCR) IUs/ml Pending Hepatitis C RNA (PCR) log IUs/ml Pending Test 03/20/20 05:00 POC Whole Blood Glucose Pending Microbiology Date/Time Source Procedure Growth Status 03/18/20 06:15 Urine,Clean Catch Urine Culture - Preliminary Escherichia Coli - Esbl Resulted Objective pt in covid 19 isoaltion with acute infection per Manan Awan MD Mar 20, 2020 19:13
--- NOTE | 2020-03-20 19:26 | NUR ---
NURSE HAND-OFF REPORT: Important Events on Shift:NA Patient Status: Stable Diet: NPO Pending Orders: NA Pending Results/Labs:NA Pending notification:NA Latest Vital Signs: Temperature 98.2 , Pulse 81 , B/P 135 /76 , Respiratory Rate 22 , O2 SAT 92 , Room Air, O2 Flow Rate 100.0 . Vital Sign Comment: Stable EKG Rhythm: Sinus Rhythm Rhythm change?: N MD Notified?: Courtney Paige MD Response: Message left await call Latest Hassan Fall Score: 35 Fall Risk: Medium Risk Safety Measures: Call light Within Reach, Bed Alarm Zone 1, Side Rails Side Rails x3, Bed position Low and Locked. Fall Precautions: Yellow Socks Yellow Gown Door Sign Patient Fall Education Report given to PRIYANKA Puente.
--- NOTE | 2020-03-20 19:30 | NUR ---
NURSE NOTES: Received patient report from Kareem. Patient is AO x4. Patient on Bipap 20/10 FiO2 100% with O2 sat of 94%. Pt has DL WAYNE PICC patent and intact running TPN at 83mL/hr. Pt has R hand 22g tko. Patient with condom cath draining well. No acute distress noted. Pt resting in bed comfortably. Pt on hospital monitor running NSR. Bed in lowest position, locked with side rails x2 up. Call light within reach. Continue to monitor.
[2020-03-20 20:00] VITALS: BP 159/92
[2020-03-20] MEDS: TPN IV SCH (20:00)
[2020-03-20] MEDS: Dyna-Hex 2% Top Sol 2oz TOPIC SCH (20:00)
[2020-03-20] MEDS: FAT EMULSION 20% IV SCH (20:00)
[2020-03-20] MEDS: Miralax 17gm pkt ORAL SCH (21:00)
[2020-03-21] VITALS: BP 140/91
[2020-03-21] MEDS: Trimethoprim/Sulfamethoxazole 20 ML in D5W 500ml 550 ML IV SCH ×4 (00:11→23:49)
[2020-03-21] MEDS: NovoLOG Insulin Flexpen SUBQ SCH ×5 (00:27→23:59)
[2020-03-21 04:00] VITALS: BP 133/86
[2020-03-21] MEDS: Solu-MEDROL 40mg Inj IVP SCH (05:47)
[2020-03-21 07:05] LABS: HEMATOCRIT 40.5 % (42.0-52.0); HEMOGLOBIN 13.1 G/DL (14.2-18.0); MEAN CORPUSCULAR VOLUME 87 FL (80-99); PLATELET COUNT 260 K/UL (150-450); RED BLOOD COUNT 4.67 M/UL (4.70-6.10); RED CELL DISTRIBUTION WIDTH 14.3 % (11.6-14.8); WHITE BLOOD COUNT 12.5 K/UL (4.8-10.8)
--- NOTE | 2020-03-21 07:15 | NUR ---
NURSE NOTES:handoff received from PRIYANKA Shelby. Patient received resting in bed, on bipap 20/12 FI02 100% saturating at 98%, no acute signs of distress noted, patient is awake and alert and able to make needs known. 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 Patient is placed on aspiration and fall precautions with bed in the low and locked position, alarm on and HOB elevated to 30'. Patient has condom cath patent and draining to gravity. Will follow plan of care.
--- NOTE | 2020-03-21 07:20 | NUR ---
NURSE HAND-OFF REPORT: Important Events on Shift:[] Patient Status: [STABLE] Diet: [NPO] Pending Orders: [] Pending Results/Labs:[] Pending MD notification:[] Latest Vital Signs: Temperature 98.5 , Pulse 74 , B/P 133 /86 , Respiratory Rate 20 , O2 SAT 96 , Room Air, O2 Flow Rate 100.0 . Vital Sign Comment: [] EKG Rhythm: Sinus Rhythm Rhythm change?: N MD Notified?: Courtney Paige MD Response: Message left await call Latest Hassan Fall Score: 35 Fall Risk: Medium Risk Safety Measures: Call light Within Reach, Bed Alarm Zone 1, Side Rails Side Rails x3, Bed position Low and Locked. Fall Precautions: Yellow Socks Yellow Gown Door Sign Patient Fall Education Report given to [GURINDER MATHEW].
--- NOTE | 2020-03-21 07:34 | General Progress Note ---
Subjective ROS Limited/Unobtainable: Yes Allergies: Coded Allergies: No Known Allergies (Unverified , 02/05/20) Objective Last 24 Hour Vital Signs Date Time Temp Pulse Resp B/P (MAP) Pulse Ox O2 Delivery O2 Flow Rate FiO2 03/21/20 04:00 100 03/21/20 04:00 Bi-pap 100.0 Bi-pap 03/21/20 04:00 98.5 78 20 133/86 (102) 96 03/21/20 04:00 74 03/21/20 02:59 78 18 96 100 03/21/20 00:00 104 03/21/20 00:00 100 03/21/20 00:00 Bi-pap 100.0 Bi-pap 03/21/20 00:00 97.5 87 20 140/91 (107) 95 03/20/20 22:43 84 25 93 100 03/20/20 20:00 97.7 89 20 159/92 (114) 94 03/20/20 20:00 100 03/20/20 20:00 80 03/20/20 20:00 Bi-pap 100.0 Bi-pap 03/20/20 19:38 81 24 94 100 03/20/20 16:00 81 03/20/20 16:00 100 03/20/20 16:00 Bi-pap 100.0 Bi-pap 03/20/20 16:00 98.2 87 22 135/76 (95) 92 03/20/20 13:46 90 25 91 100 03/20/20 12:00 82 03/20/20 12:00 100 03/20/20 12:00 Bi-pap 100.0 Bi-pap 03/20/20 12:00 98.0 95 20 140/88 (105) 91 03/20/20 08:00 97.8 100 21 134/90 (105) 91 03/20/20 08:00 100 03/20/20 08:00 Bi-pap 100.0 Bi-pap 03/20/20 08:00 83 Intake and Output 03/20/20 03/21/20 19:00 07:00 Intake Total 2363 ml Output Total 2000 ml 1600 ml Balance 363 ml -1600 ml IV Total 2363 ml Output Urine Total 2000 ml 1600 ml Laboratory Tests 03/21/20 04:46: White Blood Count 12.5H, Red Blood Count 4.67L, Hemoglobin 13.1L, Hematocrit 40.5L, Mean Corpuscular Volume 87, Mean Corpuscular Hemoglobin 28.1, Mean Corpuscular Hemoglobin Concent 32.4, Red Cell Distribution Width 14.3, Platelet Count 260, Mean Platelet Volume 7.3, Neutrophils (%) (Auto) , Lymphocytes (%) (Auto) , Monocytes (%) (Auto) , Eosinophils (%) (Auto) , Basophils (%) (Auto) , Neutrophils % (Manual) [Pending], Lymphocytes % (Manual) [Pending], Platelet Estimate [Pending], Platelet Morphology [Pending], Sodium Level [Pending], Potassium Level [Pending], Chloride Level [Pending], Carbon Dioxide Level [Pending], Blood Urea Nitrogen [Pending], Creatinine [Pending], Estimat Glomerular Filtration Rate [Pending], Glucose Level [Pending], Uric Acid [Pending], Calcium Level [Pending], Phosphorus Level [Pending], Magnesium Level [Pending], Total Bilirubin [Pending], Gamma Glutamyl Transpeptidase [Pending], Aspartate Amino Transf (AST/SGOT) [Pending], Alanine Aminotransferase (ALT/SGPT) [Pending], Alkaline Phosphatase [Pending], Total Protein [Pending], Albumin [Pending], Globulin [Pending] Height (Feet): 5 Height (Inches): 10.00 Weight (Pounds): 240 General Appearance: no apparent distress EENT: normal ENT inspection Neck: supple Cardiovascular: normal rate Respiratory/Chest: decreased breath sounds Abdomen: normal bowel sounds, non tender, soft Extremities: non-tender Assessment/Plan Status: stable, progressing Assessment/Plan: covid + on BIPAP DM HTN FTT constipation not stable for PEG could not tolerate NGT placement TPN for now bowel regimen covid care rising LFTS>>> will monitor>> most likely due to TPN will Da Wilson MD Mar 21, 2020 07:34
[2020-03-21 07:50] LABS: PHOSPHORUS 3.3 MG/DL (2.5-4.9)
[2020-03-21 07:52] LABS: ALANINE AMINOTRANSFERASE 270 U/L (12-78); ALBUMIN 2.2 G/DL (3.4-5.0); ALBUMIN/GLOBULIN RATIO 0.6 (1.0-2.7); ALKALINE PHOSPHATASE 166 U/L (46-116); ANION GAP 6 mmol/L (5-15); ASPARTATE AMINO TRANSFERASE 57 U/L (15-37); BILIRUBIN,TOTAL 0.8 MG/DL (0.2-1.0); BLOOD UREA NITROGEN 28 mg/dL (7-18); CALCIUM 8.1 MG/DL (8.5-10.1); CARBON DIOXIDE 32 MMOL/L (21-32); CHLORIDE 94 MMOL/L (98-107); CREATININE 0.7 MG/DL (0.55-1.30); POTASSIUM 4.2 MMOL/L (3.5-5.1); SODIUM 132 MMOL/L (136-145)
[2020-03-21 08:00] VITALS: BP 141/90
--- NOTE | 2020-03-21 08:27 | NUR ---
RD ASSESSMENT & RECOMMENDATIONS SEE CARE ACTIVITY FOR COMPLETE ASSESSMENT DAILY ESTIMATED NEEDS: Needs based on Pulmonary, cardiac 81kg abw 23-28 kcals/kg 3683-7644 total kcals 1.25-1.5 g protein/kg 101-122 g total protein 25-30 mL/kg 4591-7178 total fluid mLs NUTRITION DIAGNOSIS: * Inadequate oral intake R/T clinical and respiratory status as evidenced by COVID-19 ++, on continuous BIPAP, prolonged meal refusals, pt is now on TPN. * Decreased sodium and fat needs r/t HTN and obesity as evidenced by pt w/ cardiac history, elev BP (159/98-> now improved, on BP meds and diuretics), BMI >30, obese per guidelines. (INACTIVE) CURRENT DIET: NPO-> now CLD PO DIET RECOMMENDATIONS: CLD as per GI PARENTERAL NUTRITION RECOMMENDATIONS: D/AA Rate: 75 IL Rate: 8 Total Rate: 83 Volume: 1992 % Dextrose: 15 % AA: 5.5 Energy (kcals/kg): 1698 Protein (g/kg protein): 99 Nonprotein KCALS: 1302 GIR (mg CHO/kg/min): 2.3 % Fat KCALS: 22 NPC: N Ratio: 82.4:1 TPN Comment: - Rec TPN change d/t elevated LFTs and triglyceride - D15% + AA5.5% @75ml/hr with IL20% @8ml/hr- all 3:1, total of 83ml/hr - Check lytes daily, replete as needed - Monitor BGs, LFTs, and Triglyceride closely w/ TPN - TPN @ goal provides 91% est kcal and 99% est prot needs ADDITIONAL RECOMMENDATIONS: 1) Maintain calibrated bedscale wts; obtain a standing wt as able 2) Obtain HgA1C for eval 3) Monitor LFT's, BGs, and lipid panel, need for formulary change 4) Monitor hydration status- now on TPN 5) Consider TPN -> now ordered / Monitor po intake of CLD, BG and need for TPN formulary change.
[2020-03-21] MEDS: Vitamin D 1000 units Tab ORAL SCH ×2 (09:00→09:56)
[2020-03-21] MEDS: Lactulose 20gm/30ml UDC ORAL SCH ×4 (09:00→17:14)
--- NOTE | 2020-03-21 09:53 | Pulmonology Progress Note ---
Subjective ROS Limited/Unobtainable: Yes Interval Events: tolerating BiPAP; saturating better Constitutional: Reports: fatigue, other - on bipap, sats stable ; Denies: fever HEENT: Repors: no symptoms Respiratory: Reports: dry cough, shortness of breath Cardiovascular: Reports: no symptoms Gastrointestinal/Abdominal: Denies: nausea, vomiting, diarrhea Psychiatric: Denies: anxiety Skin: Denies: rash Musculoskeletal: Denies: pain Allergies: Coded Allergies: No Known Allergies (Unverified , 02/05/20) Objective Last 24 Hour Vital Signs Date Time Temp Pulse Resp B/P (MAP) Pulse Ox O2 Delivery O2 Flow Rate FiO2 03/21/20 08:36 88 03/21/20 08:00 100 03/21/20 07:10 82 29 95 100 03/21/20 04:00 100 03/21/20 04:00 Bi-pap 100.0 Bi-pap 03/21/20 04:00 98.5 78 20 133/86 (102) 96 03/21/20 04:00 74 03/21/20 02:59 78 18 96 100 03/21/20 00:00 104 03/21/20 00:00 100 03/21/20 00:00 Bi-pap 100.0 Bi-pap 03/21/20 00:00 97.5 87 20 140/91 (107) 95 03/20/20 22:43 84 25 93 100 03/20/20 20:00 97.7 89 20 159/92 (114) 94 03/20/20 20:00 100 03/20/20 20:00 80 03/20/20 20:00 Bi-pap 100.0 Bi-pap 03/20/20 19:38 81 24 94 100 03/20/20 16:00 81 03/20/20 16:00 100 03/20/20 16:00 Bi-pap 100.0 Bi-pap 03/20/20 16:00 98.2 87 22 135/76 (95) 92 03/20/20 13:46 90 25 91 100 03/20/20 12:00 82 03/20/20 12:00 100 03/20/20 12:00 Bi-pap 100.0 Bi-pap 03/20/20 12:00 98.0 95 20 140/88 (105) 91 Intake and Output 03/20/20 03/21/20 19:00 07:00 Intake Total 2363 ml Output Total 2000 ml 1600 ml Balance 363 ml -1600 ml IV Total 2363 ml Output Urine Total 2000 ml 1600 ml General Appearance: WD/WN, no acute distress HEENT: normocephalic, atraumatic Respiratory: chest wall non-tender Cardiovascular: normal rate, regular rhythm Abdomen: normal bowel sounds, soft, non tender, other - obese Laboratory Tests 03/21/20 04:46: White Blood Count 12.5H, Red Blood Count 4.67L, Hemoglobin 13.1L, Hematocrit 40.5L, Mean Corpuscular Volume 87, Mean Corpuscular Hemoglobin 28.1, Mean Corpuscular Hemoglobin Concent 32.4, Red Cell Distribution Width 14.3, Platelet Count 260, Mean Platelet Volume 7.3, Neutrophils (%) (Auto) , Lymphocytes (%) (Auto) , Monocytes (%) (Auto) , Eosinophils (%) (Auto) , Basophils (%) (Auto) , Neutrophils % (Manual) [Pending], Lymphocytes % (Manual) [Pending], Platelet Estimate [Pending], Platelet Morphology [Pending], Sodium Level 132L, Potassium Level 4.2, Chloride Level 94L, Carbon Dioxide Level 32, Anion Gap 6, Blood Urea Nitrogen 28H, Creatinine 0.7, Estimat Glomerular Filtration Rate > 60, Glucose Level 179H, Uric Acid 2.0L, Calcium Level 8.1L, Phosphorus Level 3.3, Magnesium Level 1.9, Total Bilirubin 0.8, Gamma Glutamyl Transpeptidase 179H, Aspartate Amino Transf (AST/SGOT) 57H, Alanine Aminotransferase (ALT/SGPT) 270H, Alkaline Phosphatase 166H, Total Protein 5.8L, Albumin 2.2L, Globulin 3.6, Albumin/Globulin Ratio 0.6L Current Medications Medications (Trade) Dose Ordered Sig/Dennis Route PRN Reason Start Time Stop Time Status Last Admin Dose Admin Acetaminophen (Tylenol) 650 mg Q4H PRN ORAL Mild Pain (Pain Scale 1-3) 03/09/20 12:00 04/08/20 11:59 Amlodipine Besylate (Norvasc) 2.5 mg DAILY ORAL 03/20/20 09:00 04/19/20 08:59 Bisacodyl (Dulcolax) 10 mg HSPRN PRN RECTAL Constipation 02/05/20 13:15 05/05/20 13:14 Bisacodyl (Dulcolax) 10 mg Q12H PRN RECTAL Constipation 03/18/20 16:45 06/16/20 16:44 Cefepime HCl 2 gm/ Dextrose 100 ml @ 200 mls/hr Q12HR IVPB 03/19/20 21:00 03/26/20 20:59 03/20/20 21:00 Chlorhexidine Gluconate (Marlen-Hex 2%) 1 applic DAILY@2000 TOPIC 02/14/20 20:00 05/14/20 19:59 03/20/20 20:00 Clonidine HCl (Catapres TTS-1) 1 patch QWEEK TDERMAL 03/09/20 21:00 06/07/20 20:59 03/16/20 20:27 Dextrose 1,000 ml @ 0 mls/hr Q24H PRN IV PN interrupted or unavailable 03/09/20 20:00 04/08/20 19:59 Dextrose (Dextrose 50%) 25 ml Q30M PRN IV Hypoglycemia 03/10/20 00:00 06/08/20 00:00 Dextrose (Dextrose 50%) 50 ml Q30M PRN IV Hypoglycemia 03/10/20 00:00 06/08/20 00:00 Enoxaparin Sodium (Lovenox) 40 mg DAILY SUBQ 03/13/20 12:00 06/11/20 11:59 03/20/20 08:39 Fat Emulsion Intravenous 192 ml/Amino Acids/ Electrolytes/ Dextrose 1,992 ml @ 83 mls/hr Q24H IV 03/17/20 20:00 04/16/20 19:59 03/20/20 20:00 Furosemide (Lasix) 20 mg EVERY 8 HOURS IV 03/19/20 14:00 04/18/20 13:59 03/21/20 05:47 Hydralazine HCl (Apresoline) 10 mg Q6H PRN IV For High Blood Pressure 03/09/20 17:00 06/07/20 16:59 03/17/20 09:28 Insulin Aspart (NovoLOG) Q6HR SUBQ 03/10/20 00:00 06/08/20 00:00 03/21/20 06:05 Insulin Detemir (Levemir) 18 units Q12HR SUBQ 03/14/20 21:00 06/10/20 20:59 03/20/20 21:00 Lactulose (Cephulac) 20 gm THREE TIMES A DAY ORAL 03/08/20 13:00 04/07/20 12:59 03/17/20 09:00 Methylprednisolone Sodium Succinate (Solu-MEDROL) 40 mg EVERY 8 HOURS IVP 03/07/20 18:58 06/05/20 18:57 03/21/20 05:47 Pantoprazole (Protonix) 40 mg EVERY 12 HOURS IVP 03/12/20 21:00 04/11/20 20:59 03/20/20 21:00 Polyethylene Glycol (Miralax) 17 gm BEDTIME ORAL 03/08/20 21:00 04/07/20 20:59 03/19/20 20:41 Promethazine HCl/ Codeine (Phenergan with Codeine) 5 ml Q4H PRN ORAL For Cough 02/22/20 12:15 03/23/20 12:14 03/12/20 09:00 Trimethoprim/ Sulfamethoxazole 20 ml/Dextrose 570 ml @ 380 mls/hr [id number] BACTRIM IV 03/19/20 16:00 03/26/20 16:00 03/21/20 00:11 Vitamin D (Vitamin D) 5,000 unit DAILY ORAL 03/15/20 09:00 04/14/20 08:59 03/17/20 09:01 Assessment/Plan Assessment/Plan 1.COVID-19 pneumonia. - currently on BiPAP. Saturations 99%. Will attempt NRBM today - D-dimer 0.90; on Lovenox; 40 mg subcut daily -Discontinued Decadron, now on Solumedrol - s/p remdesivir - is net I/O negative -We will continue TPN - On Bactrim due to concern about pneumocystis. - Looking improved today. 2. Smoker. 3. DVT ppx - on lovenox 4. Hypertension - on hydralazine, and norvasc 5. Infectious disease - on Abx per ID - CT abd/pelvis showed no abscess per ID - TTE/ FERNY held off due to COVID-19 status - PICC line in place (Patient was seen earlier today. Signature timestamp does not reflect patient encounter time) John Mata MD . John Mata MD Mar 21, 2020 09:53
[2020-03-21] MEDS: Pantoprazole Inj IVP SCH ×2 (09:55→20:41)
[2020-03-21] MEDS: Enoxaparin 40mg Inj SUBQ SCH (09:58)
[2020-03-21] MEDS: Levemir Flexpen SUBQ SCH ×2 (09:59→20:59)
--- NOTE | 2020-03-21 11:02 | NUR ---
NURSE NOTES:Dr Mata rounded on patient and requested to see how patient tolerated non-rebreather. Informed RT to see how patient tolerates.
--- NOTE | 2020-03-21 11:53 | Nephrology Progress Note ---
Assessment/Plan Problem List: (1) Dehydration (2) Electrolyte imbalance (3) COVID-19 virus infection (4) Pneumonia (5) DMII (diabetes mellitus, type 2) (6) Protein malnutrition Assessment Azotemia, hypernatremia Hypoalbuminemia Staff Otilia bacteremia COVID-19 isolation, pneumonia, bilateral infiltrate Hypertension Diabetes mellitus History of smoking Plan March 21: On TPN. Labs reviewed. Continue 3% saline and Lasix for mild hy ponatremia. Continue TPN as these. Discussed with pharmacy. March 20: Remains on TPN. Labs reviewed. Serum sodium higher on IV Lasix and 3% saline infusion. Continue TPN as is. Continue to monitor renal parameters and electrolytes. Discussed with Dr. Mata March 19: Remains on TPN. Labs reviewed. Serum sodium 128. Will give 3% saline with IV Lasix. Continue to monitor electrolytes. No change in TPN composition. Discussed with pharmacy. March 18: Remains on TPN. Labs reviewed. Discussed with pharmacist. Will give 3 doses of IV Lasix 20 mg every 8 hours. Continue to monitor serum sodium electrolytes uric acid. White blood cells down. Continue per consultants. March 17: On TPN. Labs reviewed. Discussed with pharmacist. Sodium content increase. Continue to monitor CMP. Patient continues to have leukocytosis. March 16: On TPN. Labs reviewed. Discussed with pharmacist. Appropriate changes made. Continue to monitor electrolytes. March 15: Remains on TPN. Labs reviewed. Discussed with pharmacist. Continue per current management. March 14: Remains on TPN. Labs reviewed, stable. Vitamin D level low, replacement ordered. Continue to monitor electrolytes and renal parameters. March 13: Patient remains on TPN. Discussed with pharmacist. TPN's sodium content adjusted. Labs reviewed. Continue to monitor electrolytes. Blood pressure remains stable. Continue per consultants. March 12: Patient on TPN. Labs reviewed. CPK remains elevated. Abnormal electrolytes and high blood sugar discussed with pharmacist and TPN adjusted. Continue to monitor labs. Oral Protonix added. Ibuprofen discontinued. Can continue to monitor electrolytes and chemistries. Levemir for high blood sugar added. March 11: Patient on TPN. Labs as of 11:15 AM is still pending. Continue per current treatment plan. Will check labs and adjust TPN as needed. Continue per consultants. March 10: Patient on TPN. Labs reviewed. Electrolytes overall stable. CPK is elevated. Will monitor electrolyte, CPK level, lipid panel. Continue per consultants. Discussed with pharmacist. Discussed with RN. Nutritional evaluation noted. Previously: D5W 100 cc an hour Monitor electrolytes renal parameters TPN and Intralipid ordered Will follow Continue per consultants Dietary consult requested Subjective ROS Limited/Unobtainable: Yes Objective Objective Last 24 Hour Vital Signs Date Time Temp Pulse Resp B/P (MAP) Pulse Ox O2 Delivery O2 Flow Rate FiO2 03/21/20 11:05 113 30 94 100 03/21/20 09:00 88 141/90 03/21/20 08:36 88 03/21/20 08:00 Bi-pap 100.0 03/21/20 08:00 98.4 78 24 141/90 (107) 95 03/21/20 08:00 100 03/21/20 07:10 82 29 95 100 03/21/20 04:00 100 03/21/20 04:00 Bi-pap 100.0 Bi-pap 03/21/20 04:00 98.5 78 20 133/86 (102) 96 03/21/20 04:00 74 03/21/20 02:59 78 18 96 100 03/21/20 00:00 104 03/21/20 00:00 100 03/21/20 00:00 Bi-pap 100.0 Bi-pap 03/21/20 00:00 97.5 87 20 140/91 (107) 95 03/20/20 22:43 84 25 93 100 03/20/20 20:00 97.7 89 20 159/92 (114) 94 03/20/20 20:00 100 03/20/20 20:00 80 03/20/20 20:00 Bi-pap 100.0 Bi-pap 03/20/20 19:38 81 24 94 100 03/20/20 16:00 81 03/20/20 16:00 100 03/20/20 16:00 Bi-pap 100.0 Bi-pap 03/20/20 16:00 98.2 87 22 135/76 (95) 92 03/20/20 13:46 90 25 91 100 03/20/20 12:00 82 03/20/20 12:00 100 03/20/20 12:00 Bi-pap 100.0 Bi-pap 03/20/20 12:00 98.0 95 20 140/88 (105) 91 Intake and Output 03/20/20 03/21/20 19:00 07:00 Intake Total 2363 ml Output Total 2000 ml 1600 ml Balance 363 ml -1600 ml IV Total 2363 ml Output Urine Total 2000 ml 1600 ml Current Medications Medications (Trade) Dose Ordered Sig/Dennis Route PRN Reason Start Time Stop Time Status Last Admin Dose Admin Acetaminophen (Tylenol) 650 mg Q4H PRN ORAL Mild Pain (Pain Scale 1-3) 03/09/20 12:00 04/08/20 11:59 Amlodipine Besylate (Norvasc) 2.5 mg DAILY ORAL 03/20/20 09:00 04/19/20 08:59 Bisacodyl (Dulcolax) 10 mg HSPRN PRN RECTAL Constipation 02/05/20 13:15 05/05/20 13:14 Bisacodyl (Dulcolax) 10 mg Q12H PRN RECTAL Constipation 03/18/20 16:45 06/16/20 16:44 Cefepime HCl 2 gm/ Dextrose 100 ml @ 200 mls/hr Q12HR IVPB 03/19/20 21:00 03/26/20 20:59 03/21/20 11:05 Chlorhexidine Gluconate (Marlen-Hex 2%) 1 applic DAILY@2000 TOPIC 02/14/20 20:00 05/14/20 19:59 03/20/20 20:00 Clonidine HCl (Catapres TTS-1) 1 patch QWEEK TDERMAL 03/09/20 21:00 06/07/20 20:59 03/16/20 20:27 Dextrose 1,000 ml @ 0 mls/hr Q24H PRN IV PN interrupted or unavailable 03/09/20 20:00 04/08/20 19:59 Dextrose (Dextrose 50%) 25 ml Q30M PRN IV Hypoglycemia 03/10/20 00:00 06/08/20 00:00 Dextrose (Dextrose 50%) 50 ml Q30M PRN IV Hypoglycemia 03/10/20 00:00 06/08/20 00:00 Enoxaparin Sodium (Lovenox) 40 mg DAILY SUBQ 03/13/20 12:00 06/11/20 11:59 03/21/20 09:58 Fat Emulsion Intravenous 192 ml/Amino Acids/ Electrolytes/ Dextrose 1,992 ml @ 83 mls/hr Q24H IV 03/17/20 20:00 04/16/20 19:59 03/20/20 20:00 Furosemide (Lasix) 20 mg EVERY 8 HOURS IV 03/19/20 14:00 04/18/20 13:59 03/21/20 05:47 Hydralazine HCl (Apresoline) 10 mg Q6H PRN IV For High Blood Pressure 03/09/20 17:00 06/07/20 16:59 03/17/20 09:28 Insulin Aspart (NovoLOG) Q6HR SUBQ 03/10/20 00:00 06/08/20 00:00 03/21/20 06:05 Insulin Detemir (Levemir) 18 units Q12HR SUBQ 03/14/20 21:00 06/10/20 20:59 03/21/20 09:59 Lactulose (Cephulac) 20 gm THREE TIMES A DAY ORAL 03/08/20 13:00 04/07/20 12:59 03/17/20 09:00 Methylprednisolone Sodium Succinate (Solu-MEDROL) 40 mg EVERY 8 HOURS IVP 03/07/20 18:58 06/05/20 18:57 03/21/20 05:47 Pantoprazole (Protonix) 40 mg EVERY 12 HOURS IVP 03/12/20 21:00 04/11/20 20:59 03/21/20 09:55 Polyethylene Glycol (Miralax) 17 gm BEDTIME ORAL 03/08/20 21:00 04/07/20 20:59 03/19/20 20:41 Promethazine HCl/ Codeine (Phenergan with Codeine) 5 ml Q4H PRN ORAL For Cough 02/22/20 12:15 03/23/20 12:14 03/12/20 09:00 Sodium Chloride 250 ml @ 30 mls/hr ONCE ONCE IV 03/21/20 12:00 03/21/20 20:19 Trimethoprim/ Sulfamethoxazole 20 ml/Dextrose 570 ml @ 380 mls/hr [id number] BACTRIM IV 03/19/20 16:00 03/26/20 16:00 03/21/20 09:55 Vitamin D (Vitamin D) 5,000 unit DAILY ORAL 03/15/20 09:00 04/14/20 08:59 03/17/20 09:01 Laboratory Tests 03/21/20 04:46: White Blood Count 12.5H, Red Blood Count 4.67L, Hemoglobin 13.1L, Hematocrit 40.5L, Mean Corpuscular Volume 87, Mean Corpuscular Hemoglobin 28.1, Mean Corpuscular Hemoglobin Concent 32.4, Red Cell Distribution Width 14.3, Platelet Count 260, Mean Platelet Volume 7.3, Neutrophils (%) (Auto) , Lymphocytes (%) (Auto) , Monocytes (%) (Auto) , Eosinophils (%) (Auto) , Basophils (%) (Auto) , Differential Total Cells Counted 100, Neutrophils % (Manual) 92H, Lymphocytes % (Manual) 2L, Monocytes % (Manual) 6, Eosinophils % (Manual) 0, Basophils % (Manual) 0, Band Neutrophils 0, Platelet Estimate Adequate, Platelet Morphology Normal, Anisocytosis 1+, Sodium Level 132L, Potassium Level 4.2, Chloride Level 94L, Carbon Dioxide Level 32, Anion Gap 6, Blood Urea Nitrogen 28H, Creatinine 0.7, Estimat Glomerular Filtration Rate > 60, Glucose Level 179H, Uric Acid 2.0L , Calcium Level 8.1L, Phosphorus Level 3.3, Magnesium Level 1.9, Total Bilirubin 0.8, Gamma Glutamyl Transpeptidase 179H, Aspartate Amino Transf (AST/SGOT) 57H, Alanine Aminotransferase (ALT/SGPT) 270H, Alkaline Phosphatase 166H, Total Protein 5.8L, Albumin 2.2L, Globulin 3.6, Albumin/Globulin Ratio 0.6L Height (Feet): 5 Height (Inches): 10.00 Weight (Pounds): 240 EENT: other - On BiPAP Cardiovascular: tachycardia Respiratory/Chest: decreased breath sounds Abdomen: distended Rubin Cooper MD Mar 21, 2020 11:53
[2020-03-21 12:00] VITALS: BP 148/89
[2020-03-21] MEDS ORDERED: NaCl 3% 500ml 250 ML IV ONE (12:00)
[2020-03-21] MEDS: Solu-MEDROL 125mg Inj IVP SCH ×2 (14:14→22:14)
--- NOTE | 2020-03-21 14:15 | NUR ---
NURSE NOTES:Changed linen top sheet and blanket, patient refused bed bath.
--- NOTE | 2020-03-21 15:43 | NUR ---
Contact OfficerSenior Reliability Engineer SI: Respiratory Failure, COVID PNA T 97.5 (ax), HR 85, RR 23, BP 148/89 BIPAP 20/10, FiO2 100% O2 sat 92% WBC 12.5, BUN 28, Na+ 132 Chest x ray-unchanged over 5 days IS: Bactrim IV q 8 hrs Lovenox SQ q 12 h solu-medrol IVP q 8 hrs TPN 85ml/hr q 24 h NS @ 30cchr x 1 Cefepime IV Q 12 h Protonix IVP q 12 h Norvasc PO daily Lasix IV q 8 hrs Step Down Status
--- NOTE | 2020-03-21 15:51 | Infectious Diseases Prog Note ---
Assessment/Plan Assessment/Plan ASSESSMENT AND PLAN: 1. staph aureus bacteremia/mssa, ? source, ? endocarditis, sepsis, leukocytosis, ? CAP, PJP less likely with HIV negative and steroids < 1 month covid-19 +, hypoxia, sob, chest x-ray worse, ? PE, ? HCAP/aspiration pna recurrent fevers - ? fungal, ? OI leukocytosis noted - ? new infection, ? steroids cocci serology negative, legionella negative, beta 1,3 D-glucan wnl, Il-16 - 13.7 elevated LFT's - ? TPN, ? Bactrim - US without gallbladder disease, + steatosis - d/w GI - TPN more likely than bactrim as etiology e.coli uti - bactrim for empiric pneumocystis pna treatment -day # 13 - day # 40 mssa tx post neg blood cultures - will be covered by bactrim also - ceftriaxone for e.coli uti tx - day # 3 antibiotics - saturations improved, on solumedrol - monitor hypoxia, labs and chest x-ray - CT imaging noted - leukocytosis better - TPN 2. covid-19 isolation 3. Hypertension history. Blood pressure treatment primary care team. 4. Elevated blood sugars. Blood sugar treatment per primary care team. 5. No known drug allergies. 6. Social history is positive for smoking. 7. Family history is noncontributory. 8. MAR was noted. 9. Case was discussed with RN. 10. Continue treatment per primary consultants. Subjective Constitutional: Reports: fatigue, other - on bipap; Denies: fever HEENT: Reports: congestion Respiratory: Reports: shortness of breath Cardiovascular: Denies: chest pain Gastrointestinal/Abdominal: Denies: nausea, vomiting, diarrhea Genitourinary: Denies: dysuria Neurologic: Denies: headache Psychiatric: Denies: depression Skin: Denies: rash Hematologic: Denies: bleeding Musculoskeletal: Denies: pain Allergies: Coded Allergies: No Known Allergies (Unverified , 02/05/20) Objective Last 24 Hour Vital Signs Date Time Temp Pulse Resp B/P (MAP) Pulse Ox O2 Delivery O2 Flow Rate FiO2 03/21/20 12:00 Bi-pap 100.0 03/21/20 12:00 100 03/21/20 12:00 77 03/21/20 12:00 97.5 85 23 148/89 (108) 92 03/21/20 11:05 113 30 94 100 03/21/20 09:00 88 141/90 03/21/20 08:36 88 03/21/20 08:00 Bi-pap 100.0 03/21/20 08:00 98.4 78 24 141/90 (107) 95 03/21/20 08:00 100 03/21/20 07:10 82 29 95 100 03/21/20 04:00 100 03/21/20 04:00 Bi-pap 100.0 Bi-pap 03/21/20 04:00 98.5 78 20 133/86 (102) 96 03/21/20 04:00 74 03/21/20 02:59 78 18 96 100 03/21/20 00:00 104 03/21/20 00:00 100 03/21/20 00:00 Bi-pap 100.0 Bi-pap 03/21/20 00:00 97.5 87 20 140/91 (107) 95 03/20/20 22:43 84 25 93 100 03/20/20 20:00 97.7 89 20 159/92 (114) 94 03/20/20 20:00 100 03/20/20 20:00 80 03/20/20 20:00 Bi-pap 100.0 Bi-pap 03/20/20 19:38 81 24 94 100 03/20/20 16:00 81 03/20/20 16:00 100 03/20/20 16:00 Bi-pap 100.0 Bi-pap 03/20/20 16:00 98.2 87 22 135/76 (95) 92 Height (Feet): 5 Height (Inches): 10.00 Weight (Pounds): 240 General Appearance: no acute distress HEENT: normocephalic, atraumatic, anicteric Respiratory/Chest: rhonchi - bilaterally Cardiovascular: normal rate, regular rhythm, no gallop/murmur Abdomen: normal bowel sounds, soft, non tender, no organomegaly, non distended Genitourinary: other - no joseph Extremities: no cyanosis Skin: no rash Neurologic/Psychiatric: clip on sunglasses inspector II-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 The infiltrates are typical for Covid 19. No evidence of pulmonary embolus. CT abdomen and pelvis: IMPRESSION: 1. Scattered hepatic hypodense lesions, too small to characterize on this examination without intravenous contrast. 2. Colonic diverticulosis without evidence of acute diverticulitis. 3. Scattered enlarged mesenteric lymph nodes, presumably reactive. teral pneumonia. The infiltrates are typical for Covid 19. No evidence of pulmonary embolus. Chest x-ray - 12/19/19 - Indication: Shortness of breath Technique: One view of the chest Comparison: 02/17/2020 Findings: Interim worsening of bilateral infiltrates, particularly on the right. The heart is borderline enlarged. The pleural spaces are clear. Left arm PICC is again demonstrated Impression: Worsening bilateral infiltrates over one day, likely pneumonia CT chest - 02/19/20 - IMPRESSION: Increased extensive patchy ground-glass opacities and densities throughout the lungs, suggestive of Covid 19 infection. Chest x-ray 02/23/20 - Procedure: XRAY Chest 1v As Indication: Reason For Exam: INFECT Technique: One view of the chest Comparison: 02/20/2020 Findings: Allowing for differences in exposure technique, bilateral mid and lower lung infiltrates are probably unchanged. The heart size is normal. The pleural spaces are clear. Impression: Unchanged, over 4 days, findings as above. Chest x-ray - 02/25/20 - FINDINGS: Lungs: Interval slightly worsening bilateral airspace disease. Pleural space: Unremarkable. No pneumothorax. Heart: Unremarkable. No cardiomegaly. Mediastinum: Unremarkable. Bones/joints: Unremarkable. IMPRESSION: Interval slightly worsening bilateral airspace disease. Chest x-ray - 03/02/20 - Procedure: XRAY Chest 1v Indication: Shortness of breath Technique: One view of the chest Comparison: 02/25/2020 Findings: Bilateral interstitial and airspace infiltrates are unchanged. The heart size is normal. Left arm PICC is again demonstrated Impression: Unchanged, over one day, findings as above. Chest x-ray - 03/06/20 - Procedure: XRAY Chest 1v Indication: Shortness of breath Technique: One view of the chest Comparison: 03/02/2020 Findings: Bilateral infiltrates are unchanged. Normal heart size. Pleural spaces are clear Chest x-ray - 03/12/10 - Impression: COMPARISON: Chest radiograph March 06, 2020. FINDINGS/IMPRESSION: Improving basilar infiltrates. Follow chest radiograph recommended. The upper lung finley are clear. No pneumothorax. Stable cardiomegaly. Stable left upper extremity PICC line. anged, over 4 days, findings as above. Chest x-ray - 03/17/20 - Procedure: XRAY Chest 1v Indication: Shortness of breath Technique: One view of the chest Comparison: 03/12/2020 Findings: Left arm PICC is again demonstrated. Infiltrates are unchanged. The heart size is upper limits of normal. Impression: Unchanged, over 5 days, findings as above. Abdominal US - IMPRESSION: 1. Gallbladder is normal. 2. Hepatic steatosis. 3. 1.7 cm cyst right kidney. Impression. Microbiology Date/Time Source Procedure Growth Status 03/18/20 06:15 Urine,Clean Catch Urine Culture - Final Escherichia Coli - Esbl Complete 03/17/20 18:35 Blood Blood Culture - Preliminary NO GROWTH AFTER 72 HOURS Resulted 02/10/20 06:30 Nasopharynx SARS-CoV-2 RdRp Gene Assay - Final Complete Microbiology Date/Time Source Procedure Growth Status 03/18/20 06:15 Urine,Clean Catch Urine Culture - Final Escherichia Coli - Esbl Complete 03/17/20 18:35 Blood Blood Culture - Preliminary NO GROWTH AFTER 72 HOURS Resulted 02/10/20 06:30 Nasopharynx SARS-CoV-2 RdRp Gene Assay - Final Complete Laboratory Tests Test 03/21/20 04:46 White Blood Count 12.5 K/UL (4.8-10.8) H Red Blood Count 4.67 M/UL (4.70-6.10) L Hemoglobin 13.1 G/DL (14.2-18.0) L Hematocrit 40.5 % (42.0-52.0) L Mean Corpuscular Volume 87 FL (80-99) Mean Corpuscular Hemoglobin 28.1 PG (27.0-31.0) Mean Corpuscular Hemoglobin Concent 32.4 G/DL (32.0-36.0) Red Cell Distribution Width 14.3 % (11.6-14.8) Platelet Count 260 K/UL (150-450) Mean Platelet Volume 7.3 FL (6.5-10.1) Neutrophils (%) (Auto) % (45.0-75.0) Lymphocytes (%) (Auto) % (20.0-45.0) Monocytes (%) (Auto) % (1.0-10.0) Eosinophils (%) (Auto) % (0.0-3.0) Basophils (%) (Auto) % (0.0-2.0) Differential Total Cells Counted 100 Neutrophils % (Manual) 92 % (45-75) H Lymphocytes % (Manual) 2 % (20-45) L Monocytes % (Manual) 6 % (1-10) Eosinophils % (Manual) 0 % (0-3) Basophils % (Manual) 0 % (0-2) Band Neutrophils 0 % (0-8) Platelet Estimate Adequate Platelet Morphology Normal Anisocytosis 1+ Sodium Level 132 MMOL/L (136-145) L Potassium Level 4.2 MMOL/L (3.5-5.1) Chloride Level 94 MMOL/L (98-107) L Carbon Dioxide Level 32 MMOL/L (21-32) Anion Gap 6 mmol/L (5-15) Blood Urea Nitrogen 28 mg/dL (7-18) H Creatinine 0.7 MG/DL (0.55-1.30) Estimat Glomerular Filtration Rate > 60 mL/min (>60) Glucose Level 179 MG/DL (74-106) H Uric Acid 2.0 MG/DL (2.6-7.2) L Calcium Level 8.1 MG/DL (8.5-10.1) L Phosphorus Level 3.3 MG/DL (2.5-4.9) Magnesium Level 1.9 MG/DL (1.8-2.4) Total Bilirubin 0.8 MG/DL (0.2-1.0) Gamma Glutamyl Transpeptidase 179 U/L (5-85) H Aspartate Amino Transf (AST/SGOT) 57 U/L (15-37) H Alanine Aminotransferase (ALT/SGPT) 270 U/L (12-78) H Alkaline Phosphatase 166 U/L (46-116) H Total Protein 5.8 G/DL (6.4-8.2) L Albumin 2.2 G/DL (3.4-5.0) L Globulin 3.6 g/dL Albumin/Globulin Ratio 0.6 (1.0-2.7) L Current Medications Medications (Trade) Dose Ordered Sig/Dennis Route PRN Reason Start Time Stop Time Status Last Admin Dose Admin Acetaminophen (Tylenol) 650 mg Q4H PRN ORAL Mild Pain (Pain Scale 1-3) 03/09/20 12:00 04/08/20 11:59 Amlodipine Besylate (Norvasc) 2.5 mg DAILY ORAL 03/20/20 09:00 04/19/20 08:59 Bisacodyl (Dulcolax) 10 mg HSPRN PRN RECTAL Constipation 02/05/20 13:15 05/05/20 13:14 Bisacodyl (Dulcolax) 10 mg Q12H PRN RECTAL Constipation 03/18/20 16:45 06/16/20 16:44 Cefepime HCl 2 gm/ Dextrose 100 ml @ 200 mls/hr Q12HR IVPB 03/19/20 21:00 03/26/20 20:59 03/21/20 11:05 Chlorhexidine Gluconate (Marlen-Hex 2%) 1 applic DAILY@2000 TOPIC 02/14/20 20:00 05/14/20 19:59 03/20/20 20:00 Clonidine HCl (Catapres TTS-1) 1 patch QWEEK TDERMAL 03/09/20 21:00 06/07/20 20:59 03/16/20 20:27 Dextrose 1,000 ml @ 0 mls/hr Q24H PRN IV PN interrupted or unavailable 03/09/20 20:00 04/08/20 19:59 Dextrose (Dextrose 50%) 25 ml Q30M PRN IV Hypoglycemia 03/10/20 00:00 06/08/20 00:00 Dextrose (Dextrose 50%) 50 ml Q30M PRN IV Hypoglycemia 03/10/20 00:00 06/08/20 00:00 Enoxaparin Sodium (Lovenox) 40 mg DAILY SUBQ 03/13/20 12:00 06/11/20 11:59 03/21/20 09:58 Fat Emulsion Intravenous 192 ml/Amino Acids/ Electrolytes/ Dextrose 1,992 ml @ 83 mls/hr Q24H IV 03/17/20 20:00 04/16/20 19:59 03/20/20 20:00 Furosemide (Lasix) 20 mg EVERY 8 HOURS IV 03/19/20 14:00 04/18/20 13:59 03/21/20 14:14 Hydralazine HCl (Apresoline) 10 mg Q6H PRN IV For High Blood Pressure 03/09/20 17:00 06/07/20 16:59 03/17/20 09:28 Insulin Aspart (NovoLOG) Q6HR SUBQ 03/10/20 00:00 06/08/20 00:00 03/21/20 12:13 Insulin Detemir (Levemir) 18 units Q12HR SUBQ 03/14/20 21:00 06/10/20 20:59 03/21/20 09:59 Lactulose (Cephulac) 20 gm THREE TIMES A DAY ORAL 03/08/20 13:00 04/07/20 12:59 03/17/20 09:00 Methylprednisolone Sodium Succinate (Solu-MEDROL) 40 mg EVERY 8 HOURS IVP 03/21/20 14:00 03/22/20 13:59 03/21/20 14:14 Methylprednisolone Sodium Succinate (Solu-MEDROL) 40 mg EVERY 8 HOURS IVP 03/22/20 14:00 06/20/20 13:59 Pantoprazole (Protonix) 40 mg EVERY 12 HOURS IVP 03/12/20 21:00 04/11/20 20:59 03/21/20 09:55 Polyethylene Glycol (Miralax) 17 gm BEDTIME ORAL 03/08/20 21:00 04/07/20 20:59 03/19/20 20:41 Promethazine HCl/ Codeine (Phenergan with Codeine) 5 ml Q4H PRN ORAL For Cough 02/22/20 12:15 03/23/20 12:14 03/12/20 09:00 Sodium Chloride 250 ml @ 30 mls/hr ONCE ONCE IV 03/21/20 12:00 03/21/20 20:19 03/21/20 12:12 Trimethoprim/ Sulfamethoxazole 20 ml/Dextrose 570 ml @ 380 mls/hr [id number] BACTRIM IV 03/19/20 16:00 03/26/20 16:00 03/21/20 09:55 Vitamin D (Vitamin D) 5,000 unit DAILY ORAL 03/15/20 09:00 04/14/20 08:59 03/17/20 09:01 Kisha Salazar MD Mar 21, 2020 15:50
[2020-03-21 16:00] VITALS: BP 165/99
[2020-03-21] MEDS ORDERED: cefTRIAXone 1 GM in D5W 50 ML IVPB SCH (16:00)
--- NOTE | 2020-03-21 16:51 | Cardiology Progress Note ---
Assessment/Plan Assessment/Plan Acute covid 19 pneumonia hypoxemia infiltrate bilat bacteremia hypernatremia / hyponatremia mild abn lfts on bipap did not tolerate nrb mask trial 03/21 hypoxemia unlikely cardiac related off anticoagulation except for dvt ppx dose continue supportive care bp is high will increase tts patch and keep on iv hydralazine not takign any po meds per rn so will remove the norvasc for fox mar echo reviewed a few days ago showed still normal lv function no valvular dysfunction cxr personally reviewed from 03/17 will reorder for tomorrow bnp will be rechecked again on diuretic already , previously did nto help despite a sig rise in na , got 3% saline will repeat bnp again tele reviewed personally he is hypoxemic still consider repeating ct chest ? he was on full dose heparin previously as well now on dvt ppx abg ordred as well by dr fry Subjective Subjective pt now in covid 19 isolation per rn not toelrate the tiral of non rebreather mask desatuarated , coughing on the bipap per ID: Respiratory: Reports: shortness of breath Cardiovascular: Denies: chest pain Gastrointestinal/Abdominal: Denies: nausea, vomiting, diarrhea Genitourinary: Denies: dysuria. Objective Last 24 Hour Vital Signs Date Time Temp Pulse Resp B/P (MAP) Pulse Ox O2 Delivery O2 Flow Rate FiO2 03/21/20 16:07 79 03/21/20 16:00 Bi-pap 100.0 03/21/20 16:00 97.7 85 25 165/99 (121) 91 03/21/20 16:00 100 03/21/20 15:05 80 25 91 100 03/21/20 12:00 Bi-pap 100.0 03/21/20 12:00 100 03/21/20 12:00 77 03/21/20 12:00 97.5 85 23 148/89 (108) 92 03/21/20 11:05 113 30 94 100 03/21/20 09:00 88 141/90 03/21/20 08:36 88 03/21/20 08:00 Bi-pap 100.0 03/21/20 08:00 98.4 78 24 141/90 (107) 95 03/21/20 08:00 100 03/21/20 07:10 82 29 95 100 03/21/20 04:00 100 03/21/20 04:00 Bi-pap 100.0 Bi-pap 03/21/20 04:00 98.5 78 20 133/86 (102) 96 03/21/20 04:00 74 03/21/20 02:59 78 18 96 100 03/21/20 00:00 104 03/21/20 00:00 100 03/21/20 00:00 Bi-pap 100.0 Bi-pap 03/21/20 00:00 97.5 87 20 140/91 (107) 95 03/20/20 22:43 84 25 93 100 03/20/20 20:00 97.7 89 20 159/92 (114) 94 03/20/20 20:00 100 03/20/20 20:00 80 03/20/20 20:00 Bi-pap 100.0 Bi-pap 03/20/20 19:38 81 24 94 100 Intake and Output 03/20/20 03/21/20 19:00 07:00 Intake Total 2363 ml 83 ml Output Total 2000 ml 1600 ml Balance 363 ml -1517 ml IV Total 2363 ml 83 ml Output Urine Total 2000 ml 1600 ml Laboratory Tests Test 03/21/20 04:46 White Blood Count 12.5 K/UL (4.8-10.8) H Red Blood Count 4.67 M/UL (4.70-6.10) L Hemoglobin 13.1 G/DL (14.2-18.0) L Hematocrit 40.5 % (42.0-52.0) L Mean Corpuscular Volume 87 FL (80-99) Mean Corpuscular Hemoglobin 28.1 PG (27.0-31.0) Mean Corpuscular Hemoglobin Concent 32.4 G/DL (32.0-36.0) Red Cell Distribution Width 14.3 % (11.6-14.8) Platelet Count 260 K/UL (150-450) Mean Platelet Volume 7.3 FL (6.5-10.1) Neutrophils (%) (Auto) % (45.0-75.0) Lymphocytes (%) (Auto) % (20.0-45.0) Monocytes (%) (Auto) % (1.0-10.0) Eosinophils (%) (Auto) % (0.0-3.0) Basophils (%) (Auto) % (0.0-2.0) Differential Total Cells Counted 100 Neutrophils % (Manual) 92 % (45-75) H Lymphocytes % (Manual) 2 % (20-45) L Monocytes % (Manual) 6 % (1-10) Eosinophils % (Manual) 0 % (0-3) Basophils % (Manual) 0 % (0-2) Band Neutrophils 0 % (0-8) Platelet Estimate Adequate Platelet Morphology Normal Anisocytosis 1+ Sodium Level 132 MMOL/L (136-145) L Potassium Level 4.2 MMOL/L (3.5-5.1) Chloride Level 94 MMOL/L (98-107) L Carbon Dioxide Level 32 MMOL/L (21-32) Anion Gap 6 mmol/L (5-15) Blood Urea Nitrogen 28 mg/dL (7-18) H Creatinine 0.7 MG/DL (0.55-1.30) Estimat Glomerular Filtration Rate > 60 mL/min (>60) Glucose Level 179 MG/DL (74-106) H Uric Acid 2.0 MG/DL (2.6-7.2) L Calcium Level 8.1 MG/DL (8.5-10.1) L Phosphorus Level 3.3 MG/DL (2.5-4.9) Magnesium Level 1.9 MG/DL (1.8-2.4) Total Bilirubin 0.8 MG/DL (0.2-1.0) Gamma Glutamyl Transpeptidase 179 U/L (5-85) H Aspartate Amino Transf (AST/SGOT) 57 U/L (15-37) H Alanine Aminotransferase (ALT/SGPT) 270 U/L (12-78) H Alkaline Phosphatase 166 U/L (46-116) H Total Protein 5.8 G/DL (6.4-8.2) L Albumin 2.2 G/DL (3.4-5.0) L Globulin 3.6 g/dL Albumin/Globulin Ratio 0.6 (1.0-2.7) L Objective pt in covid 19 isoaltion with acute infection per ID Respiratory/Chest: rhonchi - bilaterally Cardiovascular: normal rate, regular rhythm, no gallop/murmur Abdomen: normal bowel sounds, soft, non tender, no organomegaly, non distended Genitourinary: other - no joseph Extremities: no cyanosis Manan Awan MD Mar 21, 2020 16:51
[2020-03-21] MEDS: cefTRIAXone 1 GM in D5W 50 ML IVPB SCH (17:18)
--- NOTE | 2020-03-21 19:15 | NUR ---
NURSE NOTES: Received report from PRIYANKA Lyon. Pt in bed, A/O x4 , able to make needs known. In no apparent cardiac and respiratory distress noted. On quality assurance monitor final showing SR with 81 hr.On BiPAP 20/10, FiO2 100% saturating @90%. With PICC line double lumen running Intralipids in TPN @83ml/hr, no infiltration noted. With condom cath draining light jeff color urine via gravity. Safety measures in place, bed is in the lowest position with side rails x2 and locked. Call light and bedside table is within reach. Will continue plan of care.
--- NOTE | 2020-03-21 19:22 | NUR ---
NURSE HAND-OFF REPORT: Important Events on Shift Patient Status: Stable Diet: Clear liquid/TPN Pending Orders: Pending Results/Labs: Pending MD notification: Latest Vital Signs: Temperature 97.7 , Pulse 79 , B/P 165 /99 , Respiratory Rate 25 , O2 SAT 91 , Room Air, O2 Flow Rate 100.0 . Vital Sign Comment: EKG Rhythm: Sinus Rhythm Rhythm change?: N MD Notified?: MD Response: Latest Hassan Fall Score: 35 Fall Risk: Medium Risk Safety Measures: Call light Within Reach, Bed Alarm Zone 1, Side Rails Side Rails x3, Bed position Low and Locked. Fall Precautions: Yellow Socks Yellow Gown Door Sign Patient Fall Education Report given to PRIYANKA Diamond.
[2020-03-21 20:00] VITALS: BP 144/84
[2020-03-21] MEDS: Miralax 17gm pkt ORAL SCH (20:33)
[2020-03-21] MEDS: Dyna-Hex 2% Top Sol 2oz TOPIC SCH (20:41)
[2020-03-21] MEDS: TPN IV SCH (20:44)
[2020-03-21] MEDS: FAT EMULSION 20% IV SCH (20:44)
--- NOTE | 2020-03-21 22:31 | NUR ---
NURSE NOTES: Offered to do oral care but pt refused. Will try to convince pt later.
[2020-03-22] VITALS: BP 125/79
--- NOTE | 2020-03-22 00:15 | NUR ---
NURSE NOTES: Offered pt to do oral care again with RT on bedside but pt refused. Explained risks and benefits still refused. Will try again later.
[2020-03-22 04:00] VITALS: BP 143/89
[2020-03-22 04:13] LABS: HEMATOCRIT 40.3 % (42.0-52.0); HEMOGLOBIN 13.3 G/DL (14.2-18.0); MEAN CORPUSCULAR VOLUME 86 FL (80-99); PLATELET COUNT 264 K/UL (150-450); RED BLOOD COUNT 4.68 M/UL (4.70-6.10); RED CELL DISTRIBUTION WIDTH 14.2 % (11.6-14.8); WHITE BLOOD COUNT 11.2 K/UL (4.8-10.8)
[2020-03-22 04:29] LABS: ALANINE AMINOTRANSFERASE 256 U/L (12-78); ALBUMIN 2.2 G/DL (3.4-5.0); ALBUMIN/GLOBULIN RATIO 0.6 (1.0-2.7); ALKALINE PHOSPHATASE 181 U/L (46-116); ANION GAP 3 mmol/L (5-15); ASPARTATE AMINO TRANSFERASE 53 U/L (15-37); BILIRUBIN,TOTAL 0.8 MG/DL (0.2-1.0); BLOOD UREA NITROGEN 27 mg/dL (7-18); CALCIUM 8.3 MG/DL (8.5-10.1); CARBON DIOXIDE 33 MMOL/L (21-32); CHLORIDE 94 MMOL/L (98-107); CREATININE 0.7 MG/DL (0.55-1.30); POTASSIUM 4.1 MMOL/L (3.5-5.1); SODIUM 130 MMOL/L (136-145)
[2020-03-22 04:42] LABS: PHOSPHORUS 3.1 MG/DL (2.5-4.9)
[2020-03-22] MEDS: Solu-MEDROL 125mg Inj IVP SCH (05:10)
[2020-03-22] MEDS: NovoLOG Insulin Flexpen SUBQ SCH ×4 (05:21→23:57)
--- NOTE | 2020-03-22 05:55 | NUR ---
NURSE NOTES: Tried several times to convince pt to change gown and linens but still refused. Did allowed me to wipe his bilateral upper and lower extremities but only the front side. Pt refused to turn . Refused to do oral care also. Explained risks and benefits, still patient refused.
--- NOTE | 2020-03-22 07:30 | NUR ---
NURSE NOTES: Received patient in bed. Awake, A/O x4. On BiPAP. Patient denies pain. WAYNE PICC line, infusing IVf as ordered. Bed low and locked, side rails up x2, call light within reach with return demonstration.
--- NOTE | 2020-03-22 07:38 | NUR ---
NURSE HAND-OFF REPORT: Important Events on Shift: Stable; Pt refused oral care, bed bath, and doesn't want his gown to be change. Patient Status: Stable Diet: TPN Pending Orders: Pending Results/Labs: Pending MD notification: Latest Vital Signs: Temperature 97.7 , Pulse 88 , B/P 143 /89 , Respiratory Rate 25 , O2 SAT 92 , Room Air, O2 Flow Rate 100.0 . Vital Sign Comment: Stable EKG Rhythm: Sinus Rhythm Rhythm change?: N MD Notified?: MD Response: Latest Hassan Fall Score: 35 Fall Risk: Medium Risk Safety Measures: Call light Within Reach, Bed Alarm Zone 1, Side Rails Side Rails x3, Bed position Low and Locked. Fall Precautions: Yellow Socks Yellow Gown Door Sign Patient Fall Education Report given to Meera Mejía RN .
[2020-03-22 08:00] VITALS: BP 137/86
[2020-03-22] MEDS: Pantoprazole Inj IVP SCH ×2 (08:49→21:32)
[2020-03-22] MEDS: Trimethoprim/Sulfamethoxazole 20 ML in D5W 500ml 550 ML IV SCH ×3 (08:49→23:49)
[2020-03-22] MEDS: Enoxaparin 40mg Inj SUBQ SCH (08:50)
[2020-03-22] MEDS: Vitamin D 1000 units Tab ORAL SCH (09:00)
[2020-03-22] MEDS: Lactulose 20gm/30ml UDC ORAL SCH ×3 (09:00→18:00)
--- NOTE | 2020-03-22 09:09 | General Progress Note ---
Subjective ROS Limited/Unobtainable: Yes Allergies: Coded Allergies: No Known Allergies (Unverified , 02/05/20) Objective Last 24 Hour Vital Signs Date Time Temp Pulse Resp B/P (MAP) Pulse Ox O2 Delivery O2 Flow Rate FiO2 03/22/20 08:00 97.7 93 22 137/86 (103) 90 03/22/20 06:40 88 27 92 100 03/22/20 04:28 Bi-pap 100.0 03/22/20 04:00 97.7 88 25 143/89 (107) 92 03/22/20 04:00 100 03/22/20 03:27 91 20 94 100 03/22/20 03:11 83 03/22/20 00:00 100 03/22/20 00:00 Bi-pap 100.0 03/22/20 00:00 98.1 92 24 125/79 (94) 91 03/21/20 23:35 95 26 91 100 03/21/20 23:07 95 03/21/20 20:00 98.2 99 26 144/84 (104) 90 03/21/20 20:00 Bi-pap 100.0 03/21/20 20:00 100 03/21/20 19:48 112 31 93 100 03/21/20 19:33 98 03/21/20 17:22 165/99 03/21/20 17:19 165/99 03/21/20 16:07 79 03/21/20 16:00 Bi-pap 100.0 03/21/20 16:00 97.7 85 25 165/99 (121) 91 03/21/20 16:00 100 03/21/20 15:05 80 25 91 100 03/21/20 12:00 Bi-pap 100.0 03/21/20 12:00 100 03/21/20 12:00 77 03/21/20 12:00 97.5 85 23 148/89 (108) 92 03/21/20 11:05 113 30 94 100 Intake and Output 03/21/20 03/22/20 19:00 07:00 Intake Total 997 ml 1090 ml Output Total 1600 ml 2100 ml Balance -603 ml -1010 ml IV Total 997 ml 1090 ml Output Urine Total 1600 ml 2100 ml Laboratory Tests 03/21/20 20:50: POC Whole Blood Glucose 172H 03/21/20 23:54: POC Whole Blood Glucose 171H 03/22/20 03:28: White Blood Count 11.2H, Red Blood Count 4.68L, Hemoglobin 13.3L, Hematocrit 40.3L, Mean Corpuscular Volume 86, Mean Corpuscular Hemoglobin 28.5, Mean Corpuscular Hemoglobin Concent 33.1, Red Cell Distribution Width 14.2, Platelet Count 264, Mean Platelet Volume 7.2, Neutrophils (%) (Auto) , Lymphocytes (%) (Auto) , Monocytes (%) (Auto) , Eosinophils (%) (Auto) , Basophils (%) (Auto) , Neutrophils % (Manual) [Pending], Lymphocytes % (Manual) [Pending], Platelet Estimate [Pending], Platelet Morphology [Pending], Sodium Level 130L, Potassium Level 4.1, Chloride Level 94L, Carbon Dioxide Level 33H, Anion Gap 3L, Blood Urea Nitrogen 27H, Creatinine 0.7, Estimat Glomerular Filtration Rate > 60, Glucose Level 212H, Uric Acid 1.8L, Calcium Level 8.3L, Phosphorus Level 3.1, Magnesium Level 2.0, Total Bilirubin 0.8, Aspartate Amino Transf (AST/SGOT) 53H, Alanine Aminotransferase (ALT/SGPT) 256H, Alkaline Phosphatase 181H, Lactate Dehydrogenase 396H, Pro-B-Type Natriuretic Peptide 248H, Total Protein 5.9L, Albumin 2.2L, Globulin 3.7, Albumin/Globulin Ratio 0.6L 03/22/20 04:00: Troponin I 0.049 03/22/20 05:13: POC Whole Blood Glucose 190H 03/22/20 08:48: POC Whole Blood Glucose 180H Height (Feet): 5 Height (Inches): 10.00 Weight (Pounds): 240 General Appearance: no apparent distress EENT: normal ENT inspection Neck: supple Cardiovascular: normal rate Respiratory/Chest: decreased breath sounds Abdomen: normal bowel sounds, non tender, soft Extremities: non-tender Assessment/Plan Status: stable, progressing Assessment/Plan: covid + on BIPAP DM HTN FTT constipation not stable for PEG could not tolerate NGT placement TPN for now bowel regimen covid care rising LFTS>>> will monitor>> most likely due to TPN will Da Wilson MD Mar 22, 2020 09:09
[2020-03-22] MEDS: Levemir Flexpen SUBQ SCH ×2 (09:46→21:34)
--- NOTE | 2020-03-22 11:08 | NUR ---
Data Processing MechanicTransverse Abdominal Muscle Surgeon SI: Respiratory Failure, COVID PNA T 97.7 (ax), HR 93, RR 22, BP 137/86 BIPAP 20/10, FiO2 100% O2 sat 90% WBC 11.2, BUN 27, Na+ 130 Chest x ray-unchanged over 5 days (03-17-20) IS: Bactrim IV q 8 hrs Lovenox SQ q 12 h solu-medrol IVP q 8 hrs TPN 85ml/hr q 24 h NS @ 30cchr x 1 Protonix IVP q 12 h Lasix IV q 8 hrs Rocephin IV q 24h Step Down Status
[2020-03-22 12:00] VITALS: BP 143/86
[2020-03-22] MEDS ORDERED: NaCl 3% 500ml 500 ML IV ONE (12:00)
--- NOTE | 2020-03-22 13:08 | NUR ---
RADIOLOGY DEPT., CHEST X-RAY DONE.-P.DYE
--- NOTE | 2020-03-22 13:09 | Diagnostic Imaging Report ---
Indication: Shortness of breath Technique: One view of the chest Comparison: 03/17/2020 Findings: Bilateral right greater than left infiltrates again demonstrated. The heart size is normal. There is a left arm PICC in good position. Impression: Unchanged, over 5 days, findings as above.
--- NOTE | 2020-03-22 13:21 | Pulmonology Progress Note ---
Subjective ROS Limited/Unobtainable: Yes Interval Events: tolerating BiPAP; saturating better Constitutional: Reports: fatigue, other - on bipap; Denies: fever HEENT: Repors: no symptoms Respiratory: Reports: dry cough, shortness of breath Cardiovascular: Reports: no symptoms Gastrointestinal/Abdominal: Denies: nausea, vomiting, diarrhea Psychiatric: Denies: depression Skin: Denies: rash Musculoskeletal: Denies: pain Allergies: Coded Allergies: No Known Allergies (Unverified , 02/05/20) Objective Last 24 Hour Vital Signs Date Time Temp Pulse Resp B/P (MAP) Pulse Ox O2 Delivery O2 Flow Rate FiO2 03/22/20 12:00 Bi-pap 100.0 03/22/20 12:00 100 03/22/20 12:00 97.9 87 24 143/86 (105) 92 03/22/20 11:39 87 03/22/20 11:00 91 23 91 100 03/22/20 08:00 97.7 93 22 137/86 (103) 90 03/22/20 08:00 Bi-pap 100.0 03/22/20 08:00 100 03/22/20 07:44 87 03/22/20 06:40 88 27 92 100 03/22/20 04:28 Bi-pap 100.0 03/22/20 04:00 97.7 88 25 143/89 (107) 92 03/22/20 04:00 100 03/22/20 03:27 91 20 94 100 03/22/20 03:11 83 03/22/20 00:00 100 03/22/20 00:00 Bi-pap 100.0 03/22/20 00:00 98.1 92 24 125/79 (94) 91 03/21/20 23:35 95 26 91 100 03/21/20 23:07 95 03/21/20 20:00 98.2 99 26 144/84 (104) 90 03/21/20 20:00 Bi-pap 100.0 03/21/20 20:00 100 03/21/20 19:48 112 31 93 100 03/21/20 19:33 98 03/21/20 17:22 165/99 03/21/20 17:19 165/99 03/21/20 16:07 79 03/21/20 16:00 Bi-pap 100.0 03/21/20 16:00 97.7 85 25 165/99 (121) 91 03/21/20 16:00 100 03/21/20 15:05 80 25 91 100 Intake and Output 03/21/20 03/22/20 19:00 07:00 Intake Total 997 ml 1090 ml Output Total 1600 ml 2100 ml Balance -603 ml -1010 ml IV Total 997 ml 1090 ml Output Urine Total 1600 ml 2100 ml Objective 03/20 saturating at 91% on BiPAP 03/19 saturating at 96% on BiPAP 03/18 saturating at 94-97% on BiPAP 03/17 saturating at 91-92% on the current BiPAP setting 03/08 saturating in the low 90s on BiPAP 03/06 saturating at 85-88% on BiPAP 03/05 saturating 77-88% on BiPAP / now saturating at 89-90% on BiPAP 03/03 saturating in the low 80s on BiPAP 02/28 saturating 93% on BiPAP 02/23 saturating 94% on BiPAP 02/22 tolerating BiPAP, saturating at 90% 02/21 now on BiPAP, saturating at 95% 02/18 still on 15L NRB mask saturating 88-93% 02/17 now on 15L NRB mask saturating at 91% 02/17/2020 now on 2 lpm NC 02/16/2020 no change 02/15/2020 no major change 02/14/2020 saturating well on RAD; NAD 02/13/2020 pt asleep; saturating well on RA 02/12/2020 sitting up in a chair; saturating well on RA 02/11/2020 back on isolation due to COVID-19 positive status again; currently being worked up for positive blood culture 02/09/2020 off isolation; saturating well on RA 02/08/2020 feeling better; COVID-19 PCR neg 02/07/2020 reports feeling better; COVID-19 PCR pending 02/06/2020 pt laying in bed; reports feeling better General Appearance: WD/WN, no acute distress HEENT: normocephalic, atraumatic Respiratory: chest wall non-tender Cardiovascular: normal rate, regular rhythm Abdomen: normal bowel sounds, soft, non tender, other - obese Laboratory Tests 03/21/20 20:50: POC Whole Blood Glucose 172H 03/21/20 23:54: POC Whole Blood Glucose 171H 03/22/20 03:28: White Blood Count 11.2H, Red Blood Count 4.68L, Hemoglobin 13.3L, Hematocrit 40.3L, Mean Corpuscular Volume 86, Mean Corpuscular Hemoglobin 28.5, Mean C orpuscular Hemoglobin Concent 33.1, Red Cell Distribution Width 14.2, Platelet Count 264, Mean Platelet Volume 7.2, Neutrophils (%) (Auto) , Lymphocytes (%) (Auto) , Monocytes (%) (Auto) , Eosinophils (%) (Auto) , Basophils (%) (Auto) , Differential Total Cells Counted 100, Neutrophils % (Manual) 95H, Lymphocytes % (Manual) 2L, Monocytes % (Manual) 3, Eosinophils % (Manual) 0, Basophils % (Manual) 0, Band Neutrophils 0, Platelet Estimate Adequate, Platelet Morphology Normal, Anisocytosis 1+, Sodium Level 130L, Potassium Level 4.1, Chloride Level 94L, Carbon Dioxide Level 33H, Anion Gap 3L, Blood Urea Nitrogen 27H, Creatinine 0.7, Estimat Glomerular Filtration Rate > 60, Glucose Level 212H, Uric Acid 1.8L , Calcium Level 8.3L, Phosphorus Level 3.1, Magnesium Level 2.0, Total Bilirubin 0.8, Aspartate Amino Transf (AST/SGOT) 53H, Alanine Aminotransferase (ALT/SGPT) 256H, Alkaline Phosphatase 181H, Lactate Dehydrogenase 396H, Pro-B-Type Natriuretic Peptide 248H, Total Protein 5.9L, Albumin 2.2L, Globulin 3.7, Albumin/Globulin Ratio 0.6L 03/22/20 04:00: Troponin I 0.049 03/22/20 05:13: POC Whole Blood Glucose 190H 03/22/20 08:48: POC Whole Blood Glucose 180H Current Medications Medications (Trade) Dose Ordered Sig/Dennis Route PRN Reason Start Time Stop Time Status Last Admin Dose Admin Acetaminophen (Tylenol) 650 mg Q4H PRN ORAL Mild Pain (Pain Scale 1-3) 03/09/20 12:00 04/08/20 11:59 Bisacodyl (Dulcolax) 10 mg HSPRN PRN RECTAL Constipation 02/05/20 13:15 05/05/20 13:14 Bisacodyl (Dulcolax) 10 mg Q12H PRN RECTAL Constipation 03/18/20 16:45 06/16/20 16:44 Ceftriaxone Sodium 1 gm/ Dextrose 50 ml @ 100 mls/hr Q24H IVPB 03/21/20 17:00 03/28/20 15:59 03/21/20 17:18 Chlorhexidine Gluconate (Marlen-Hex 2%) 1 applic DAILY@2000 TOPIC 02/14/20 20:00 05/14/20 19:59 03/21/20 20:41 Clonidine HCl (Catapres TTS-2) 1 patch QWEEK TDERMAL 03/21/20 18:00 06/19/20 17:59 03/21/20 17:22 Dextrose 1,000 ml @ 0 mls/hr Q24H PRN IV PN interrupted or unavailable 03/09/20 20:00 04/08/20 19:59 Dextrose (Dextrose 50%) 25 ml Q30M PRN IV Hypoglycemia 03/10/20 00:00 06/08/20 00:00 Dextrose (Dextrose 50%) 50 ml Q30M PRN IV Hypoglycemia 03/10/20 00:00 06/08/20 00:00 Enoxaparin Sodium (Lovenox) 40 mg DAILY SUBQ 03/13/20 12:00 06/11/20 11:59 03/22/20 08:50 Fat Emulsion Intravenous 192 ml/Amino Acids/ Electrolytes/ Dextrose 1,992 ml @ 83 mls/hr Q24H IV 03/17/20 20:00 04/16/20 19:59 03/21/20 20:44 Furosemide (Lasix) 20 mg EVERY 8 HOURS IV 03/19/20 14:00 04/18/20 13:59 03/22/20 05:11 Hydralazine HCl (Apresoline) 10 mg Q6H PRN IV For High Blood Pressure 03/09/20 17:00 06/07/20 16:59 03/21/20 17:19 Insulin Aspart (NovoLOG) Q6HR SUBQ 03/10/20 00:00 06/08/20 00:00 03/22/20 12:41 Insulin Detemir (Levemir) 18 units Q12HR SUBQ 03/14/20 21:00 06/10/20 20:59 03/22/20 09:46 Lactulose (Cephulac) 20 gm THREE TIMES A DAY ORAL 03/08/20 13:00 04/07/20 12:59 03/17/20 09:00 Methylprednisolone Sodium Succinate (Solu-MEDROL) 40 mg EVERY 8 HOURS IVP 03/21/20 14:00 03/22/20 13:59 03/22/20 05:10 Methylprednisolone Sodium Succinate (Solu-MEDROL) 40 mg EVERY 8 HOURS IVP 03/22/20 14:00 06/20/20 13:59 Pantoprazole (Protonix) 40 mg EVERY 12 HOURS IVP 03/12/20 21:00 04/11/20 20:59 03/22/20 08:49 Polyethylene Glycol (Miralax) 17 gm BEDTIME ORAL 03/08/20 21:00 04/07/20 20:59 03/19/20 20:41 Promethazine HCl/ Codeine (Phenergan with Codeine) 5 ml Q4H PRN ORAL For Cough 02/22/20 12:15 03/23/20 12:14 03/12/20 09:00 Sodium Chloride 500 ml @ 30 mls/hr ONCE ONCE IV 03/22/20 12:00 03/23/20 04:39 03/22/20 12:28 Trimethoprim/ Sulfamethoxazole 20 ml/Dextrose 570 ml @ 380 mls/hr [id number] BACTRIM IV 03/19/20 16:00 03/26/20 16:00 03/22/20 08:49 Vitamin D (Vitamin D) 5,000 unit DAILY ORAL 03/15/20 09:00 04/14/20 08:59 03/17/20 09:01 Assessment/Plan Assessment/Plan 1.COVID-19 pneumonia. - last COVID-19 test positive after two negative tests - CTA 02/05/2020 ground-glass and consolidating infiltrates in the dependent portions of both lower lobes and to lesser degree the upper lobes consistent with bilateral pneumonia. No evidence of pulmonary embolus. - CXR 02/17/2020 worsening bilateral infiltrates; Repeat CXR shows basilar linear densities - CT chest 02/18 shows Increased extensive patchy ground-glass opacities and densities throughout the lungs, suggestive of Covid 19 infection. - currently on BiPAP. Saturations 90%. - Mycoplasma pneumoniae IgG 273; M. pneumoniae IgM titer within normal limits - D-dimer 0.90; on full dose Lovenox -Discontinued Decadron, now on Solumedrol - s/p remdesivir - is net I/O negative -We will continue TPN He has had a progressive increase in LDH,-started on Bactrim due to concern about pneumocystis. - Looking unchanged today. - CXR 03/17 no significant change - CXR 03/22 no significant change 2. Initial negative rapid COVID-19 gene assay.- however repeat COVID-19 test positive 3. Smoker. 4. DVT ppx - on lovenox 5. Hypertension - on hydralazine, - s/p norvasc 6. Blood culture positive for gram positive cocci staph aureus 02/06 - on Abx - CT abd/pelvis showed no abscess per ID - TTE/ FERNY held off due to COVID-19 status - repeat BCx negative for growth 03/17 7. Leukocytosis; resolved - ID following 8. Gram negative zack UTI - s/p rocephin per ID recs - s/p rocephin, cefepime per ID 9. Elevated LFT - positive Hep C Continue BiPAP now on lasix (03/19-) The care for this patient was discussed with my supervising physician Time spent for this case was approximately 31 minutes Edilson Marinelli Mar 22, 2020 13:20
--- NOTE | 2020-03-22 14:02 | Nephrology Progress Note ---
Assessment/Plan Problem List: (1) Dehydration (2) Electrolyte imbalance (3) COVID-19 virus infection (4) Pneumonia (5) DMII (diabetes mellitus, type 2) (6) Protein malnutrition Assessment Azotemia, hypernatremia Hypoalbuminemia Staff Otilia bacteremia COVID-19 isolation, pneumonia, bilateral infiltrate Hypertension Diabetes mellitus History of smoking Plan March 22: On TPN. Labs reviewed. Low sodium noted. 3% saline to be berna nued. Continue to monitor electrolytes. Discussed with pharmacy. March 21: On TPN. Labs reviewed. Continue 3% saline and Lasix for mild hyponatremia. Continue TPN as these. Discussed with pharmacy. March 20: Remains on TPN. Labs reviewed. Serum sodium higher on IV Lasix and 3% saline infusion. Continue TPN as is. Continue to monitor renal parameters and electrolytes. Discussed with Dr. Mata March 19: Remains on TPN. Labs reviewed. Serum sodium 128. Will give 3% saline with IV Lasix. Continue to monitor electrolytes. No change in TPN composition. Discussed with pharmacy. March 18: Remains on TPN. Labs reviewed. Discussed with pharmacist. Will give 3 doses of IV Lasix 20 mg every 8 hours. Continue to monitor serum sodium electrolytes uric acid. White blood cells down. Continue per consultants. March 17: On TPN. Labs reviewed. Discussed with pharmacist. Sodium content increase. Continue to monitor CMP. Patient continues to have leukocytosis. March 16: On TPN. Labs reviewed. Discussed with pharmacist. Appropriate changes made. Continue to monitor electrolytes. March 15: Remains on TPN. Labs reviewed. Discussed with pharmacist. Continue per current management. March 14: Remains on TPN. Labs reviewed, stable. Vitamin D level low, replacement ordered. Continue to monitor electrolytes and renal parameters. March 13: Patient remains on TPN. Discussed with pharmacist. TPN's sodium content adjusted. Labs reviewed. Continue to monitor electrolytes. Blood pressure remains stable. Continue per consultants. March 12: Patient on TPN. Labs reviewed. CPK remains elevated. Abnormal electrolytes and high blood sugar discussed with pharmacist and TPN adjusted. Continue to monitor labs. Oral Protonix added. Ibuprofen discontinued. Can continue to monitor electrolytes and chemistries. Levemir for high blood sugar added. March 11: Patient on TPN. Labs as of 11:15 AM is still pending. Continue per current treatment plan. Will check labs and adjust TPN as needed. Continue per consultants. March 10: Patient on TPN. Labs reviewed. Electrolytes overall stable. CPK is elevated. Will monitor electrolyte, CPK level, lipid panel. Continue per consultants. Discussed with pharmacist. Discussed with RN. Nutritional evaluation noted. Previously: D5W 100 cc an hour Monitor electrolytes renal parameters TPN and Intralipid ordered Will follow Continue per consultants Dietary consult requested Subjective ROS Limited/Unobtainable: Yes Objective Objective Last 24 Hour Vital Signs Date Time Temp Pulse Resp B/P (MAP) Pulse Ox O2 Delivery O2 Flow Rate FiO2 03/22/20 12:00 Bi-pap 100.0 03/22/20 12:00 100 03/22/20 12:00 97.9 87 24 143/86 (105) 92 03/22/20 11:39 87 03/22/20 11:00 91 23 91 100 03/22/20 08:00 97.7 93 22 137/86 (103) 90 03/22/20 08:00 Bi-pap 100.0 03/22/20 08:00 100 03/22/20 07:44 87 03/22/20 06:40 88 27 92 100 03/22/20 04:28 Bi-pap 100.0 03/22/20 04:00 97.7 88 25 143/89 (107) 92 03/22/20 04:00 100 03/22/20 03:27 91 20 94 100 03/22/20 03:11 83 03/22/20 00:00 100 03/22/20 00:00 Bi-pap 100.0 03/22/20 00:00 98.1 92 24 125/79 (94) 91 03/21/20 23:35 95 26 91 100 03/21/20 23:07 95 03/21/20 20:00 98.2 99 26 144/84 (104) 90 03/21/20 20:00 Bi-pap 100.0 03/21/20 20:00 100 03/21/20 19:48 112 31 93 100 03/21/20 19:33 98 03/21/20 17:22 165/99 03/21/20 17:19 165/99 03/21/20 16:07 79 03/21/20 16:00 Bi-pap 100.0 03/21/20 16:00 97.7 85 25 165/99 (121) 91 03/21/20 16:00 100 03/21/20 15:05 80 25 91 100 Intake and Output 03/21/20 03/22/20 19:00 07:00 Intake Total 997 ml 1090 ml Output Total 1600 ml 2100 ml Balance -603 ml -1010 ml IV Total 997 ml 1090 ml Output Urine Total 1600 ml 2100 ml Current Medications Medications (Trade) Dose Ordered Sig/Dennis Route PRN Reason Start Time Stop Time Status Last Admin Dose Admin Acetaminophen (Tylenol) 650 mg Q4H PRN ORAL Mild Pain (Pain Scale 1-3) 03/09/20 12:00 04/08/20 11:59 Bisacodyl (Dulcolax) 10 mg HSPRN PRN RECTAL Constipation 02/05/20 13:15 05/05/20 13:14 Bisacodyl (Dulcolax) 10 mg Q12H PRN RECTAL Constipation 03/18/20 16:45 06/16/20 16:44 Ceftriaxone Sodium 1 gm/ Dextrose 50 ml @ 100 mls/hr Q24H IVPB 03/21/20 17:00 03/28/20 15:59 03/21/20 17:18 Chlorhexidine Gluconate (Marlen-Hex 2%) 1 applic DAILY@2000 TOPIC 02/14/20 20:00 05/14/20 19:59 03/21/20 20:41 Clonidine HCl (Catapres TTS-2) 1 patch QWEEK TDERMAL 03/21/20 18:00 06/19/20 17:59 03/21/20 17:22 Dextrose 1,000 ml @ 0 mls/hr Q24H PRN IV PN interrupted or unavailable 03/09/20 20:00 04/08/20 19:59 Dextrose (Dextrose 50%) 25 ml Q30M PRN IV Hypoglycemia 03/10/20 00:00 06/08/20 00:00 Dextrose (Dextrose 50%) 50 ml Q30M PRN IV Hypoglycemia 03/10/20 00:00 06/08/20 00:00 Enoxaparin Sodium (Lovenox) 40 mg DAILY SUBQ 03/13/20 12:00 06/11/20 11:59 03/22/20 08:50 Fat Emulsion Intravenous 192 ml/Amino Acids/ Electrolytes/ Dextrose 1,992 ml @ 83 mls/hr Q24H IV 03/17/20 20:00 04/16/20 19:59 03/21/20 20:44 Furosemide (Lasix) 20 mg EVERY 8 HOURS IV 03/19/20 14:00 04/18/20 13:59 03/22/20 05:11 Hydralazine HCl (Apresoline) 10 mg Q6H PRN IV For High Blood Pressure 03/09/20 17:00 06/07/20 16:59 03/21/20 17:19 Insulin Aspart (NovoLOG) Q6HR SUBQ 03/10/20 00:00 06/08/20 00:00 03/22/20 12:41 Insulin Detemir (Levemir) 18 units Q12HR SUBQ 03/14/20 21:00 06/10/20 20:59 03/22/20 09:46 Lactulose (Cephulac) 20 gm THREE TIMES A DAY ORAL 03/08/20 13:00 04/07/20 12:59 03/17/20 09:00 Methylprednisolone Sodium Succinate (Solu-MEDROL) 40 mg EVERY 8 HOURS IVP 03/21/20 14:00 03/22/20 13:59 03/22/20 05:10 Methylprednisolone Sodium Succinate (Solu-MEDROL) 40 mg EVERY 8 HOURS IVP 03/22/20 14:00 06/20/20 13:59 Pantoprazole (Protonix) 40 mg EVERY 12 HOURS IVP 03/12/20 21:00 04/11/20 20:59 03/22/20 08:49 Polyethylene Glycol (Miralax) 17 gm BEDTIME ORAL 03/08/20 21:00 04/07/20 20:59 03/19/20 20:41 Promethazine HCl/ Codeine (Phenergan with Codeine) 5 ml Q4H PRN ORAL For Cough 02/22/20 12:15 03/23/20 12:14 03/12/20 09:00 Sodium Chloride 500 ml @ 30 mls/hr ONCE ONCE IV 03/22/20 12:00 03/23/20 04:39 03/22/20 12:28 Trimethoprim/ Sulfamethoxazole 20 ml/Dextrose 570 ml @ 380 mls/hr [id number] BACTRIM IV 03/19/20 16:00 03/26/20 16:00 03/22/20 08:49 Vitamin D (Vitamin D) 5,000 unit DAILY ORAL 03/15/20 09:00 04/14/20 08:59 03/17/20 09:01 Laboratory Tests 03/21/20 20:50: POC Whole Blood Glucose 172H 03/21/20 23:54: POC Whole Blood Glucose 171H 03/22/20 03:28: White Blood Count 11.2H, Red Blood Count 4.68L, Hemoglobin 13.3L, Hematocrit 40.3L, Mean Corpuscular Volume 86, Mean Corpuscular Hemoglobin 28.5, Mean Corpuscular Hemoglobin Concent 33.1, Red Cell Distribution Width 14.2, Platelet Count 264, Mean Platelet Volume 7.2, Neutrophils (%) (Auto) , Lymphocytes (%) ( Auto) , Monocytes (%) (Auto) , Eosinophils (%) (Auto) , Basophils (%) (Auto) , Differential Total Cells Counted 100, Neutrophils % (Manual) 95H, Lymphocytes % (Manual) 2L, Monocytes % (Manual) 3, Eosinophils % (Manual) 0, Basophils % (Manual) 0, Band Neutrophils 0, Platelet Estimate Adequate, Platelet Morphology Normal, Anisocytosis 1+, Sodium Level 130L, Potassium Level 4.1, Chloride Level 94L, Carbon Dioxide Level 33H, Anion Gap 3L, Blood Urea Nitrogen 27H, Creatinine 0.7, Estimat Glomerular Filtration Rate > 60, Glucose Level 212H, Uric Acid 1.8L , Calcium Level 8.3L, Phosphorus Level 3.1, Magnesium Level 2.0, Total Bilirubin 0.8, Aspartate Amino Transf (AST/SGOT) 53H, Alanine Aminotransferase (ALT/SGPT) 256H, Alkaline Phosphatase 181H, Lactate Dehydrogenase 396H, Pro-B-Type Natriuretic Peptide 248H, Total Protein 5.9L, Albumin 2.2L, Globulin 3.7, Albumin/Globulin Ratio 0.6L 03/22/20 04:00: Troponin I 0.049 03/22/20 05:13: POC Whole Blood Glucose 190H 03/22/20 08:48: POC Whole Blood Glucose 180H Height (Feet): 5 Height (Inches): 10.00 Weight (Pounds): 240 General Appearance: no apparent distress Cardiovascular: tachycardia Abdomen: distended Fouladian,Rubin MD Mar 22, 2020 14:02
[2020-03-22] MEDS: Solu-MEDROL 40mg Inj IVP SCH ×2 (14:47→21:35)
[2020-03-22 16:00] VITALS: BP 135/93
[2020-03-22] MEDS: cefTRIAXone 1 GM in D5W 50 ML IVPB SCH (16:55)
--- NOTE | 2020-03-22 19:05 | NUR ---
NURSE NOTES: Received report from PRIYANKA Riley. Pt is A/O x4 and able to make needs known. On telemetry monitor showing SR at 87bpm. On BiPAP 20/10, FiO2 100% saturating @ 93%. No SOB or acute distress noted. Pt has a PICC line double lumen running Intralipids in TPN @ 83ml/hr which was flushed and patent. Pt has condom cath draining light jeff color urine via gravity. Bed is in the lowest position with side rails x2 and locked. Call light and bedside table is within reach. Will continue plan of care.
--- NOTE | 2020-03-22 19:26 | NUR ---
NURSE HAND-OFF REPORT: Important Events on Shift:[STAT ABG] Patient Status: [FULL CODE] Diet: [clears] Pending Orders: [] Pending Results/Labs:[] Pending MD notification:[] Latest Vital Signs: Temperature 97.3 , Pulse 91 , B/P 135 /93 , Respiratory Rate 24 , O2 SAT 92 , Room Air, O2 Flow Rate 100.0 . Vital Sign Comment: [] EKG Rhythm: Sinus Rhythm Rhythm change?: N MD Notified?: Y Grecia INTERIANO Response: Message left await call Latest Hassan Fall Score: 35 Fall Risk: Medium Risk Safety Measures: Call light Within Reach, Bed Alarm Zone 1, Side Rails Side Rails x3, Bed position Low and Locked. Fall Precautions: Yellow Socks Yellow Gown Door Sign Patient Fall Education Report given to [Lorena RN].
[2020-03-22 20:00] VITALS: BP 141/89
--- NOTE | 2020-03-22 20:30 | NUR ---
NURSE NOTES: Informed pt that I need to give him a CHG bath for his PICC line to stay clean. Pt refused a full bath but let me do the left side of his body without turning. Cleaned as much as I could. Pt would not remove the old gown saying no let it just clean where you have too. Educated pt on the reason for the bath and the need to cleanliness.
[2020-03-22] MEDS: Miralax 17gm pkt ORAL SCH (21:00)
[2020-03-22] MEDS: Dyna-Hex 2% Top Sol 2oz TOPIC SCH (21:32)
[2020-03-22] MEDS: FAT EMULSION 20% IV SCH (21:32)
[2020-03-22] MEDS: TPN IV SCH (21:32)
[2020-03-23] VITALS: BP 135/97
--- NOTE | 2020-03-23 00:10 | NUR ---
NURSE NOTES: Pt refuse all care. Was able to give IV medication but no PO medications. Offered clear liquid but pt refused also. Attempted to do oral care and pt also refused. Will attempt again.
--- NOTE | 2020-03-23 02:48 | NUR ---
NURSE NOTES: Went into pt room and attempted to let him do oral care and pt refused.
[2020-03-23 04:00] VITALS: BP 138/87
[2020-03-23 04:55] LABS: HEMOGLOBIN 12.5 G/DL (14.2-18.0); MEAN CORPUSCULAR VOLUME 87 FL (80-99); PLATELET COUNT 253 K/UL (150-450); RED CELL DISTRIBUTION WIDTH 13.9 % (11.6-14.8)
--- NOTE | 2020-03-23 05:34 | NUR ---
NURSE NOTES: Attempted to change pt adn do oral at first pt agreed with RT at bedside then got frustrated when bipap was not taken all the way off. Was told to get out of his room. Asked pt to still be able to change his gown and linens and was told to get out. Educated on how he needs to be cleaned and how much oral care can help. Pt still refused.
[2020-03-23 05:40] LABS: ALANINE AMINOTRANSFERASE 242 U/L (12-78); ALBUMIN/GLOBULIN RATIO 0.6 (1.0-2.7); ALKALINE PHOSPHATASE 190 U/L (46-116); ANION GAP 4 mmol/L (5-15); ASPARTATE AMINO TRANSFERASE 75 U/L (15-37); BILIRUBIN,TOTAL 0.5 MG/DL (0.2-1.0); BLOOD UREA NITROGEN 31 mg/dL (7-18); CALCIUM 8.4 MG/DL (8.5-10.1); CARBON DIOXIDE 33 MMOL/L (21-32); CHLORIDE 98 MMOL/L (98-107); CREATININE 0.7 MG/DL (0.55-1.30); PHOSPHORUS 3.4 MG/DL (2.5-4.9); POTASSIUM 3.9 MMOL/L (3.5-5.1); SODIUM 135 MMOL/L (136-145)
[2020-03-23] MEDS: Solu-MEDROL 40mg Inj IVP SCH ×3 (05:49→20:48)
[2020-03-23] MEDS: NovoLOG Insulin Flexpen SUBQ SCH ×3 (06:01→18:00)
--- NOTE | 2020-03-23 07:11 | NUR ---
NURSE HAND-OFF REPORT: Important Events on Shift:Pt refused all care except medications Patient Status: Guarded Diet: Clear Liquid Diet Pending Orders: Pending Results/Labs: Pending MD notification: Latest Vital Signs: Temperature 97.2 , Pulse 133 , B/P 138 /87 , Respiratory Rate 24 , O2 SAT 100 , Room Air, O2 Flow Rate 100.0 . Vital Sign Comment: EKG Rhythm: Sinus Tachycardia Rhythm change?: N MD Notified?: Courtney Paige MD Response: Message left await call Latest Hassan Fall Score: 35 Fall Risk: Medium Risk Safety Measures: Call light Within Reach, Bed Alarm Zone 1, Side Rails Side Rails x3, Bed position Low and Locked. Fall Precautions: Yellow Socks Yellow Gown Door Sign Patient Fall Education Report given to Trinh.
--- NOTE | 2020-03-23 07:12 | NUR ---
NURSE NOTES: Received patient in bed asleep. Bipap in place, no acute distress. PICC line intact and patent, running TPN. Condom catheter in place, draining yellow colored urine. HOB elevated. Bed locked in low position. Call light within reach. Will continue plan of care.
[2020-03-23 08:00] VITALS: BP 143/91
[2020-03-23] MEDS: Trimethoprim/Sulfamethoxazole 20 ML in D5W 500ml 550 ML IV SCH ×3 (08:36→23:54)
[2020-03-23] MEDS: Pantoprazole Inj IVP SCH ×2 (08:36→20:44)
[2020-03-23] MEDS: Lactulose 20gm/30ml UDC ORAL SCH ×3 (08:36→18:00)
[2020-03-23] MEDS: Vitamin D 1000 units Tab ORAL SCH (08:36)
[2020-03-23] MEDS: Enoxaparin 40mg Inj SUBQ SCH (08:37)
[2020-03-23] MEDS: Levemir Flexpen SUBQ SCH ×2 (08:50→20:50)
--- NOTE | 2020-03-23 11:36 | General Progress Note ---
Subjective ROS Limited/Unobtainable: No Allergies: Coded Allergies: No Known Allergies (Unverified , 02/05/20) Objective Last 24 Hour Vital Signs Date Time Temp Pulse Resp B/P (MAP) Pulse Ox O2 Delivery O2 Flow Rate FiO2 03/23/20 08:00 Bi-pap 100.0 03/23/20 08:00 100 03/23/20 08:00 97.2 80 20 143/91 (108) 96 03/23/20 07:43 76 03/23/20 04:00 97.2 81 24 138/87 (104) 100 03/23/20 04:00 Bi-pap 100.0 03/23/20 04:00 100 03/23/20 04:00 133 03/23/20 03:00 80 24 94 100 03/23/20 00:00 85 03/23/20 00:00 97.5 90 24 135/97 (110) 96 03/23/20 00:00 Bi-pap 100.0 03/22/20 23:00 84 25 95 100 03/22/20 20:16 77 03/22/20 20:00 Bi-pap 100.0 03/22/20 20:00 100 03/22/20 20:00 97.5 87 24 141/89 (106) 93 03/22/20 19:00 75 16 97 100 03/22/20 16:00 91 03/22/20 16:00 Bi-pap 100.0 03/22/20 16:00 100 03/22/20 16:00 97.3 85 24 135/93 (107) 92 03/22/20 15:40 98 25 93 100 03/22/20 12:00 Bi-pap 100.0 03/22/20 12:00 100 03/22/20 12:00 97.9 87 24 143/86 (105) 92 03/22/20 11:39 87 Intake and Output 03/22/20 03/23/20 19:00 07:00 Intake Total 1093 ml Output Total 1800 ml 1650 ml Balance -707 ml -1650 ml IV Total 1093 ml Output Urine Total 1800 ml 1650 ml Laboratory Tests 03/22/20 21:43: POC Whole Blood Glucose [Pending] 03/22/20 23:54: POC Whole Blood Glucose 137H 03/23/20 04:08: White Blood Count 11.0H, Red Blood Count 4.50L, Hemoglobin 12.5L, Hematocrit 39.0L, Mean Corpuscular Volume 87, Mean Corpuscular Hemoglobin 27.8, Mean Corpuscular Hemoglobin Concent 32.1, Red Cell Distribution Width 13.9, Platelet Count 253, Mean Platelet Volume 6.5, Neutrophils (%) (Auto) , Lymphocytes (%) (Auto) , Monocytes (%) (Auto) , Eosinophils (%) (Auto) , Basophils (%) (Auto) , Differential Total Cells Counted 100, Neutrophils % (Manual) 90H, Lymphocytes % (Manual) 5L, Monocytes % (Manual) 3, Eosinophils % (Manual) 0, Basophils % (Manual) 2, Band Neutrophils 0, Platelet Estimate Adequate, Platelet Morphology Normal, Hypochromasia 1+, Sodium Level 135L, Potassium Level 3.9, Chloride Level 98, Carbon Dioxide Level 33H, Anion Gap 4L, Blood Urea Nitrogen 31H, Creatinine 0.7, Estimat Glomerular Filtration Rate > 60, Glucose Level 243H, Uric Acid 2.0L, Calcium Level 8.4L, Phosphorus Level 3.4, Magnesium Level 1.9, Total Bilirubin 0.5, Aspartate Amino Transf (AST/SGOT) 75H, Alanine Aminotransferase ( ALT/SGPT) 242H, Alkaline Phosphatase 190H, C-Reactive Protein, Quantitative 0.6, Pro-B-Type Natriuretic Peptide 261H, Total Protein 5.5L, Albumin 2.0L, Globulin 3.5, Albumin/Globulin Ratio 0.6L 03/23/20 05:11: POC Whole Blood Glucose [Pending] Height (Feet): 5 Height (Inches): 10.00 Weight (Pounds): 240 General Appearance: no apparent distress EENT: normal ENT inspection Neck: supple Cardiovascular: normal rate Respiratory/Chest: decreased breath sounds Abdomen: hypoactive bowel sounds Pelvis: no active bleeding Assessment/Plan Status: stable, progressing Assessment/Plan: covid + on BIPAP DM HTN FTT constipation not stable for PEG could not tolerate NGT placement TPN for now bowel regimen covid care rising LFTS>>> will monitor>> most likely due to TPN will Da Wilson MD Mar 23, 2020 11:36
[2020-03-23 11:42] VITALS: BP 147/97
--- NOTE | 2020-03-23 12:13 | Pulmonology Progress Note ---
Subjective ROS Limited/Unobtainable: No Interval Events: tolerating BiPAP; saturating better Constitutional: Reports: fatigue, other - on bipap; Denies: fever HEENT: Repors: no symptoms Respiratory: Reports: dry cough, shortness of breath Cardiovascular: Reports: no symptoms Gastrointestinal/Abdominal: Denies: nausea, vomiting, diarrhea Psychiatric: Denies: depression Skin: Denies: rash Musculoskeletal: Denies: pain Allergies: Coded Allergies: No Known Allergies (Unverified , 02/05/20) Objective Last 24 Hour Vital Signs Date Time Temp Pulse Resp B/P (MAP) Pulse Ox O2 Delivery O2 Flow Rate FiO2 03/23/20 11:42 97.2 89 22 147/97 (114) 97 03/23/20 08:00 Bi-pap 100.0 03/23/20 08:00 100 03/23/20 08:00 97.2 80 20 143/91 (108) 96 03/23/20 07:43 76 03/23/20 04:00 97.2 81 24 138/87 (104) 100 03/23/20 04:00 Bi-pap 100.0 03/23/20 04:00 100 03/23/20 04:00 133 03/23/20 03:00 80 24 94 100 03/23/20 00:00 85 03/23/20 00:00 97.5 90 24 135/97 (110) 96 03/23/20 00:00 Bi-pap 100.0 03/22/20 23:00 84 25 95 100 03/22/20 20:16 77 03/22/20 20:00 Bi-pap 100.0 03/22/20 20:00 100 03/22/20 20:00 97.5 87 24 141/89 (106) 93 03/22/20 19:00 75 16 97 100 03/22/20 16:00 91 03/22/20 16:00 Bi-pap 100.0 03/22/20 16:00 100 03/22/20 16:00 97.3 85 24 135/93 (107) 92 03/22/20 15:40 98 25 93 100 Intake and Output 03/22/20 03/23/20 19:00 07:00 Intake Total 1093 ml Output Total 1800 ml 1650 ml Balance -707 ml -1650 ml IV Total 1093 ml Output Urine Total 1800 ml 1650 ml Objective 03/20 saturating at 91% on BiPAP 03/19 saturating at 96% on BiPAP 03/18 saturating at 94-97% on BiPAP 03/17 saturating at 91-92% on the current BiPAP setting 03/08 saturating in the low 90s on BiPAP 03/06 saturating at 85-88% on BiPAP 03/05 saturating 77-88% on BiPAP 03/04 now saturating at 89-90% on BiPAP 03/03 saturating in the low 80s on BiPAP 02/28 saturating 93% on BiPAP 02/23 saturating 94% on BiPAP 02/22 tolerating BiPAP, saturating at 90% 02/21 now on BiPAP, saturating at 95% 02/18 still on 15L NRB mask saturating 88-93% 02/17 now on 15L NRB mask saturating at 91% 02/17/2020 now on 2 lpm NC 02/16/2020 no change 02/15/2020 no major change 02/14/2020 saturating well on RAD; NAD 02/13/2020 pt asleep; saturating well on RA 02/12/2020 sitting up in a chair; saturating well on RA 02/11/2020 back on isolation due to COVID-19 positive status again; currently being worked up for positive blood culture 02/09/2020 off isolation; saturating well on RA 02/08/2020 feeling better; COVID-19 PCR neg 02/07/2020 reports feeling better; COVID-19 PCR pending 02/06/2020 pt laying in bed; reports feeling better General Appearance: WD/WN, no acute distress HEENT: normocephalic, atraumatic Respiratory: chest wall non-tender Cardiovascular: normal rate, regular rhythm Abdomen: normal bowel sounds, soft, non tender, other - obese Laboratory Tests 03/22/20 21:43: POC Whole Blood Glucose [Pending] 03/22/20 23:54: POC Whole Blood Glucose 137H 03/23/20 04:08: White Blood Count 11.0H, Red Blood Count 4.50L, Hemoglobin 12.5L, Hematocrit 39.0L, Mean Corpuscular Volume 87, Mean Corpuscular Hemoglobin 27.8, Mean Corpuscular Hemoglobin Concent 32.1, Red Cell Distribution Width 13.9, Platelet Count 253, Mean Platelet Volume 6.5, Neutrophils (%) (Auto) , Lymphocytes (%) (Auto) , Monocytes (%) (Auto) , Eosinophils (%) (Auto) , Basophils (%) (Auto) , Differential Total Cells Counted 100, Neutrophils % (Manual) 90H, Lymphocytes % (Manual) 5L, Monocytes % (Manual) 3, Eosinophils % (Manual) 0, Basophils % (Manual) 2, Band Neutrophils 0, Platelet Estimate Adequate, Platelet Morphology Normal, Hypochromasia 1+, Sodium Level 135L, Potassium Level 3.9, Chloride Level 98, Carbon Dioxide Level 33H, Anion Gap 4L, Blood Urea Nitrogen 31H, Creatinine 0.7, Estimat Glomerular Filtration Rate > 60, Glucose Level 243H, Uric Acid 2.0L, Calcium Level 8.4L, Phosphorus Level 3.4, Magnesium Level 1.9, Total Bilirubin 0.5, Aspartate Amino Transf (AST/SGOT) 75H, Alanine Aminotransferase (ALT/SGPT) 242H, Alkaline Phosphatase 190H, C-Reactive Protein, Quantitative 0.6, Pro-B-Type Natriuretic Peptide 261H, Total Protein 5.5L, Albumin 2.0L, Globulin 3.5, Albumin/Globulin Ratio 0.6L 03/23/20 05:11: POC Whole Blood Glucose [Pending] 03/23/20 11:36: POC Whole Blood Glucose 214H Current Medications Medications (Trade) Dose Ordered Sig/Dennis Route PRN Reason Start Time Stop Time Status Last Admin Dose Admin Acetaminophen (Tylenol) 650 mg Q4H PRN ORAL Mild Pain (Pain Scale 1-3) 03/09/20 12:00 04/08/20 11:59 Bisacodyl (Dulcolax) 10 mg HSPRN PRN RECTAL Constipation 02/05/20 13:15 05/05/20 13:14 Bisacodyl (Dulcolax) 10 mg Q12H PRN RECTAL Constipation 03/18/20 16:45 06/16/20 16:44 Ceftriaxone Sodium 1 gm/ Dextrose 50 ml @ 100 mls/hr Q24H IVPB 03/21/20 17:00 03/28/20 15:59 03/22/20 16:55 Chlorhexidine Gluconate (Marlen-Hex 2%) 1 applic DAILY@2000 TOPIC 02/14/20 20:00 05/14/20 19:59 03/22/20 21:32 Clonidine HCl (Catapres TTS-2) 1 patch QWEEK TDERMAL 03/21/20 18:00 06/19/20 17:59 03/21/20 17:22 Dextrose 1,000 ml @ 0 mls/hr Q24H PRN IV PN interrupted or unavailable 03/09/20 20:00 04/08/20 19:59 Dextrose (Dextrose 50%) 25 ml Q30M PRN IV Hypoglycemia 03/10/20 00:00 06/08/20 00:00 Dextrose (Dextrose 50%) 50 ml Q30M PRN IV Hypoglycemia 03/10/20 00:00 06/08/20 00:00 Enoxaparin Sodium (Lovenox) 40 mg DAILY SUBQ 03/13/20 12:00 06/11/20 11:59 03/23/20 08:37 Fat Emulsion Intravenous 192 ml/Amino Acids/ Electrolytes/ Dextrose 1,992 ml @ 83 mls/hr Q24H IV 03/17/20 20:00 04/16/20 19:59 03/22/20 21:32 Furosemide (Lasix) 20 mg EVERY 8 HOURS IV 03/19/20 14:00 04/18/20 13:59 03/23/20 05:48 Hydralazine HCl (Apresoline) 10 mg Q6H PRN IV For High Blood Pressure 03/09/20 17:00 06/07/20 16:59 03/21/20 17:19 Insulin Aspart (NovoLOG) Q6HR SUBQ 03/10/20 00:00 06/08/20 00:00 03/23/20 11:53 Insulin Detemir (Levemir) 18 units Q12HR SUBQ 03/14/20 21:00 06/10/20 20:59 03/23/20 08:50 Lactulose (Cephulac) 20 gm THREE TIMES A DAY ORAL 03/08/20 13:00 04/07/20 12:59 03/23/20 08:36 Methylprednisolone Sodium Succinate (Solu-MEDROL) 40 mg EVERY 8 HOURS IVP 03/22/20 14:00 06/20/20 13:59 03/23/20 05:49 Pantoprazole (Protonix) 40 mg EVERY 12 HOURS IVP 03/12/20 21:00 04/11/20 20:59 03/23/20 08:36 Polyethylene Glycol (Miralax) 17 gm BEDTIME ORAL 03/08/20 21:00 04/07/20 20:59 03/19/20 20:41 Promethazine HCl/ Codeine (Phenergan with Codeine) 5 ml Q4H PRN ORAL For Cough 02/22/20 12:15 03/23/20 12:14 03/12/20 09:00 Trimethoprim/ Sulfamethoxazole 20 ml/Dextrose 570 ml @ 380 mls/hr [id number] BACTRIM IV 03/19/20 16:00 03/26/20 16:00 03/23/20 08:36 Vitamin D (Vitamin D) 5,000 unit DAILY ORAL 03/15/20 09:00 04/14/20 08:59 03/23/20 08:36 Assessment/Plan Assessment/Plan 1.COVID-19 pneumonia. - last COVID-19 test positive after two negative tests - CTA 02/05/2020 ground-glass and consolidating infiltrates in the dependent portions of both lower lobes and to lesser degree the upper lobes consistent with bilateral pneumonia. No evidence of pulmonary embolus. - CXR 02/17/2020 worsening bilateral infiltrates; Repeat CXR shows basilar linear densities - CT chest 02/18 shows Increased extensive patchy ground-glass opacities and densities throughout the lungs, suggestive of Covid 19 infection. - currently on BiPAP. Saturations 90%. - Mycoplasma pneumoniae IgG 273; M. pneumoniae IgM titer within normal limits - D-dimer 0.90; on full dose Lovenox -Discontinued Decadron, now on Solumedrol - s/p remdesivir - is net I/O negative -We will continue TPN He has had a progressive increase in LDH,-started on Bactrim due to concern about pneumocystis. - Looking unchanged today. - CXR 03/17 no significant change - CXR 03/22 no significant change 2. Initial negative rapid COVID-19 gene assay.- however repeat COVID-19 test positive 3. Smoker. 4. DVT ppx - on lovenox 5. Hypertension - on hydralazine, - s/p norvasc 6. Blood culture positive for gram positive cocci staph aureus 02/06 - on Abx - CT abd/pelvis showed no abscess per ID - TTE/ FERNY held off due to COVID-19 status - repeat BCx negative for growth 03/17 7. Leukocytosis; resolved - ID following 8. Gram negative zack UTI - s/p rocephin per ID recs - s/p rocephin, cefepime per ID 9. Elevated LFT - positive Hep C Continue BiPAP; will attempt weaning today with NRB now on lasix (03/19-) The care for this patient was discussed with my supervising physician Time spent for this case was approximately 31 minutes Edilson Marinelli Mar 23, 2020 12:13
--- NOTE | 2020-03-23 12:26 | Nephrology Progress Note ---
Assessment/Plan Problem List: (1) Dehydration (2) Electrolyte imbalance (3) COVID-19 virus infection (4) Pneumonia (5) DMII (diabetes mellitus, type 2) (6) Protein malnutrition Assessment Azotemia, hypernatremia Hypoalbuminemia Staff Otilia bacteremia COVID-19 isolation, pneumonia, bilateral infiltrate Hypertension Diabetes mellitus History of smoking Plan March 23: Continues to be on TPN. Labs reviewed. Electrolytes and medical chemist jose angel all acceptable. Discussed with pharmacy. Continue current management. March 22: On TPN. Labs reviewed. Low sodium noted. 3% saline to be continued. Continue to monitor electrolytes. Discussed with pharmacy. March 21: On TPN. Labs reviewed. Continue 3% saline and Lasix for mild hyponatremia. Continue TPN as these. Discussed with pharmacy. March 20: Remains on TPN. Labs reviewed. Serum sodium higher on IV Lasix and 3% saline infusion. Continue TPN as is. Continue to monitor renal parameters and electrolytes. Discussed with Dr. Mata March 19: Remains on TPN. Labs reviewed. Serum sodium 128. Will give 3% saline with IV Lasix. Continue to monitor electrolytes. No change in TPN composition. Discussed with pharmacy. March 18: Remains on TPN. Labs reviewed. Discussed with pharmacist. Will give 3 doses of IV Lasix 20 mg every 8 hours. Continue to monitor serum sodium electrolytes uric acid. White blood cells down. Continue per consultants. March 17: On TPN. Labs reviewed. Discussed with pharmacist. Sodium content increase. Continue to monitor CMP. Patient continues to have leukocytosis. March 16: On TPN. Labs reviewed. Discussed with pharmacist. Appropriate changes made. Continue to monitor electrolytes. March 15: Remains on TPN. Labs reviewed. Discussed with pharmacist. Continue per current management. March 14: Remains on TPN. Labs reviewed, stable. Vitamin D level low, replacement ordered. Continue to monitor electrolytes and renal parameters. March 13: Patient remains on TPN. Discussed with pharmacist. TPN's sodium content adjusted. Labs reviewed. Continue to monitor electrolytes. Blood pressure remains stable. Continue per consultants. March 12: Patient on TPN. Labs reviewed. CPK remains elevated. Abnormal electrolytes and high blood sugar discussed with pharmacist and TPN adjusted. Continue to monitor labs. Oral Protonix added. Ibuprofen discontinued. Can continue to monitor electrolytes and chemistries. Levemir for high blood sugar added. March 11: Patient on TPN. Labs as of 11:15 AM is still pending. Continue per current treatment plan. Will check labs and adjust TPN as needed. Continue per consultants. March 10: Patient on TPN. Labs reviewed. Electrolytes overall stable. CPK is elevated. Will monitor electrolyte, CPK level, lipid panel. Continue per consultants. Discussed with pharmacist. Discussed with RN. Nutritional evaluation noted. Previously: D5W 100 cc an hour Monitor electrolytes renal parameters TPN and Intralipid ordered Will follow Continue per consultants Dietary consult requested Subjective ROS Limited/Unobtainable: Yes Objective Objective Last 24 Hour Vital Signs Date Time Temp Pulse Resp B/P (MAP) Pulse Ox O2 Delivery O2 Flow Rate FiO2 03/23/20 11:42 97.2 89 22 147/97 (114) 97 03/23/20 08:00 Bi-pap 100.0 03/23/20 08:00 100 03/23/20 08:00 97.2 80 20 143/91 (108) 96 03/23/20 07:43 76 03/23/20 04:00 97.2 81 24 138/87 (104) 100 03/23/20 04:00 Bi-pap 100.0 03/23/20 04:00 100 03/23/20 04:00 133 03/23/20 03:00 80 24 94 100 03/23/20 00:00 85 03/23/20 00:00 97.5 90 24 135/97 (110) 96 03/23/20 00:00 Bi-pap 100.0 03/22/20 23:00 84 25 95 100 03/22/20 20:16 77 03/22/20 20:00 Bi-pap 100.0 03/22/20 20:00 100 03/22/20 20:00 97.5 87 24 141/89 (106) 93 03/22/20 19:00 75 16 97 100 03/22/20 16:00 91 03/22/20 16:00 Bi-pap 100.0 03/22/20 16:00 100 03/22/20 16:00 97.3 85 24 135/93 (107) 92 03/22/20 15:40 98 25 93 100 Intake and Output 03/22/20 03/23/20 19:00 07:00 Intake Total 1093 ml Output Total 1800 ml 1650 ml Balance -707 ml -1650 ml IV Total 1093 ml Output Urine Total 1800 ml 1650 ml Current Medications Medications (Trade) Dose Ordered Sig/Dennis Route PRN Reason Start Time Stop Time Status Last Admin Dose Admin Acetaminophen (Tylenol) 650 mg Q4H PRN ORAL Mild Pain (Pain Scale 1-3) 03/09/20 12:00 04/08/20 11:59 Bisacodyl (Dulcolax) 10 mg HSPRN PRN RECTAL Constipation 02/05/20 13:15 05/05/20 13:14 Bisacodyl (Dulcolax) 10 mg Q12H PRN RECTAL Constipation 03/18/20 16:45 06/16/20 16:44 Ceftriaxone Sodium 1 gm/ Dextrose 50 ml @ 100 mls/hr Q24H IVPB 03/21/20 17:00 03/28/20 15:59 03/22/20 16:55 Chlorhexidine Gluconate (Marlen-Hex 2%) 1 applic DAILY@2000 TOPIC 02/14/20 20:00 05/14/20 19:59 03/22/20 21:32 Clonidine HCl (Catapres TTS-2) 1 patch QWEEK TDERMAL 03/21/20 18:00 06/19/20 17:59 03/21/20 17:22 Dextrose 1,000 ml @ 0 mls/hr Q24H PRN IV PN interrupted or unavailable 03/09/20 20:00 04/08/20 19:59 Dextrose (Dextrose 50%) 25 ml Q30M PRN IV Hypoglycemia 03/10/20 00:00 06/08/20 00:00 Dextrose (Dextrose 50%) 50 ml Q30M PRN IV Hypoglycemia 03/10/20 00:00 06/08/20 00:00 Enoxaparin Sodium (Lovenox) 40 mg DAILY SUBQ 03/13/20 12:00 06/11/20 11:59 03/23/20 08:37 Fat Emulsion Intravenous 192 ml/Amino Acids/ Electrolytes/ Dextrose 1,992 ml @ 83 mls/hr Q24H IV 03/17/20 20:00 04/16/20 19:59 03/22/20 21:32 Furosemide (Lasix) 20 mg EVERY 8 HOURS IV 03/19/20 14:00 04/18/20 13:59 03/23/20 05:48 Hydralazine HCl (Apresoline) 10 mg Q6H PRN IV For High Blood Pressure 03/09/20 17:00 06/07/20 16:59 03/21/20 17:19 Insulin Aspart (NovoLOG) Q6HR SUBQ 03/10/20 00:00 06/08/20 00:00 03/23/20 11:53 Insulin Detemir (Levemir) 18 units Q12HR SUBQ 03/14/20 21:00 06/10/20 20:59 03/23/20 08:50 Lactulose (Cephulac) 20 gm THREE TIMES A DAY ORAL 03/08/20 13:00 04/07/20 12:59 03/23/20 08:36 Methylprednisolone Sodium Succinate (Solu-MEDROL) 40 mg EVERY 8 HOURS IVP 03/22/20 14:00 06/20/20 13:59 03/23/20 05:49 Pantoprazole (Protonix) 40 mg EVERY 12 HOURS IVP 03/12/20 21:00 04/11/20 20:59 03/23/20 08:36 Polyethylene Glycol (Miralax) 17 gm BEDTIME ORAL 03/08/20 21:00 04/07/20 20:59 03/19/20 20:41 Trimethoprim/ Sulfamethoxazole 20 ml/Dextrose 570 ml @ 380 mls/hr [id number] BACTRIM IV 03/19/20 16:00 03/26/20 16:00 03/23/20 08:36 Vitamin D (Vitamin D) 5,000 unit DAILY ORAL 03/15/20 09:00 04/14/20 08:59 03/23/20 08:36 Laboratory Tests 03/22/20 21:43: POC Whole Blood Glucose [Pending] 03/22/20 23:54: POC Whole Blood Glucose 137H 03/23/20 04:08: White Blood Count 11.0H, Red Blood Count 4.50L, Hemoglobin 12.5L, Hematocrit 39.0L, Mean Corpuscular Volume 87, Mean Corpuscular Hemoglobin 27.8, Mean Corpuscular Hemoglobin Concent 32.1, Red Cell Distribution Width 13.9, Platelet Count 253, Mean Platelet Volume 6.5, Neutrophils (%) (Auto) , Lymphocytes (%) (Auto) , Monocytes (%) (Auto) , Eosinophils (%) (Auto) , Basophils (%) (Auto) , Differential Total Cells Counted 100, Neutrophils % (Manual) 90H, Lymphocytes % (Manual) 5L, Monocytes % (Manual) 3, Eosinophils % (Manual) 0, Basophils % (Manual) 2, Band Neutrophils 0, Platelet Estimate Adequate, Platelet Morphology Normal, Hypochromasia 1+, Sodium Level 135L, Potassium Level 3.9, Chloride Level 98, Carbon Dioxide Level 33H, Anion Gap 4L, Blood Urea Nitrogen 31H, Creatinine 0.7, Estimat Glomerular Filtration Rate > 60, Glucose Level 243H, Uric Acid 2.0L , Calcium Level 8.4L, Phosphorus Level 3.4, Magnesium Level 1.9, Total Bilirubin 0.5, Aspartate Amino Transf (AST/SGOT) 75H, Alanine Aminotransferase (ALT/SGPT) 242H, Alkaline Phosphatase 190H, C-Reactive Protein, Quantitative 0.6, Pro-B-Type Natriuretic Peptide 261H, Total Protein 5.5L, Albumin 2.0L, Globulin 3.5, Albumin/Globulin Ratio 0.6L 03/23/20 05:11: POC Whole Blood Glucose [Pending] 03/23/20 11:36: POC Whole Blood Glucose 214H Height (Feet): 5 Height (Inches): 10.00 Weight (Pounds): 240 General Appearance: no apparent distress EENT: other - Remains on BiPAP Cardiovascular: normal rate Respiratory/Chest: decreased breath sounds Abdomen: distended Rubin Cooper MD Mar 23, 2020 12:26
--- NOTE | 2020-03-23 13:59 | NUR ---
NURSE NOTES: RT Jeannine titrating patient's bipap, not tolerating at 90%, placed at 95% for now, tolerating well.
--- NOTE | 2020-03-23 14:35 | NUR ---
AssistantCoil Maker SI: Respiratory Failure, COVID PNA T 97.2 (ax), HR 82, RR 22, BP 147/97 BIPAP 20/10, FiO2 100% O2 sat 90% WBC 11.0, BUN 31, Na+ 135 Chest x ray-unchanged over 5 days (03-22-20) IS: Bactrim IV q 8 hrs Lovenox SQ q 12 h solu-medrol IVP q 8 hrs TPN 85ml/hr q 24 h NS @ 30cchr x 1 Protonix IVP q 12 h Lasix IV q 8 hrs Rocephin IV q 24h Step Down Status
[2020-03-23 16:00] VITALS: BP 146/103
--- NOTE | 2020-03-23 16:26 | Infectious Diseases Prog Note ---
Assessment/Plan Assessment/Plan ASSESSMENT AND PLAN: 1. staph aureus bacteremia/mssa, ? source, ? endocarditis, sepsis, leukocytosis, ? CAP, PJP less likely with HIV negative and steroids < 1 month covid-19 +, hypoxia, sob, chest x-ray worse, ? PE, ? HCAP/aspiration pna recurrent fevers - ? fungal, ? OI leukocytosis noted - ? new infection, ? steroids cocci serology negative, legionella negative, beta 1,3 D-glucan wnl, Il-16 - 13.7 elevated LFT's - ? TPN, ? Bactrim - US without gallbladder disease, + steatosis - d/w GI - TPN more likely than bactrim as etiology e.coli uti - bactrim for empiric pneumocystis pna treatment -day # 15 - day # 42 mssa post - negative blood cultures - sufficient for SBE and bacteremia - ceftriaxone for e.coli uti tx - day # 5/7 antibiotics - saturations improved, on solumedrol - monitor hypoxia, labs and chest x-ray - CT imaging noted - leukocytosis better - TPN 2. covid-19 isolation 3. Hypertension history. Blood pressure treatment primary care team. 4. Elevated blood sugars. Blood sugar treatment per primary care team. 5. No known drug allergies. 6. Social history is positive for smoking. 7. Family history is noncontributory. 8. MAR was noted. 9. Case was discussed with RN. 10. Continue treatment per primary consultants. Subjective Constitutional: Denies: fever HEENT: Reports: congestion - less Respiratory: Reports: shortness of breath - less Gastrointestinal/Abdominal: Denies: nausea, vomiting, diarrhea Genitourinary: Denies: dysuria Neurologic: Denies: headache Psychiatric: Denies: depression Skin: Denies: rash Hematologic: Denies: bleeding Musculoskeletal: Denies: pain Allergies: Coded Allergies: No Known Allergies (Unverified , 02/05/20) Objective Last 24 Hour Vital Signs Date Time Temp Pulse Resp B/P (MAP) Pulse Ox O2 Delivery O2 Flow Rate FiO2 03/23/20 12:00 82 03/23/20 12:00 95 03/23/20 12:00 Bi-pap 100.0 03/23/20 11:42 97.2 89 22 147/97 (114) 97 03/23/20 11:00 96 23 95 95 03/23/20 08:00 Bi-pap 100.0 03/23/20 08:00 100 03/23/20 08:00 97.2 80 20 143/91 (108) 96 03/23/20 07:43 76 03/23/20 07:02 80 19 95 100 03/23/20 04:00 97.2 81 24 138/87 (104) 100 03/23/20 04:00 Bi-pap 100.0 03/23/20 04:00 100 03/23/20 04:00 133 03/23/20 03:00 80 24 94 100 03/23/20 00:00 85 03/23/20 00:00 97.5 90 24 135/97 (110) 96 03/23/20 00:00 Bi-pap 100.0 03/22/20 23:00 84 25 95 100 03/22/20 20:16 77 03/22/20 20:00 Bi-pap 100.0 03/22/20 20:00 100 03/22/20 20:00 97.5 87 24 141/89 (106) 93 03/22/20 19:00 75 16 97 100 Height (Feet): 5 Height (Inches): 10.00 Weight (Pounds): 240 General Appearance: no acute distress HEENT: normocephalic, atraumatic, anicteric Respiratory/Chest: no accessory muscle use, crackles/rales, rhonchi - bilaterally Cardiovascular: normal rate, regular rhythm Abdomen: normal bowel sounds, soft, non tender, no organomegaly, non distended Genitourinary: other - no joseph Extremities: no cyanosis Skin: no rash 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 The infiltrates are typical for Covid 19. No evidence of pulmonary embolus. CT abdomen and pelvis: IMPRESSION: 1. Scattered hepatic hypodense lesions, too small to characterize on this examination without intravenous contrast. 2. Colonic diverticulosis without evidence of acute diverticulitis. 3. Scattered enlarged mesenteric lymph nodes, presumably reactive. teral pneumonia. The infiltrates are typical for Covid 19. No evidence of pulmonary embolus. Chest x-ray - 12/19/19 - Indication: Shortness of breath Technique: One view of the chest Comparison: 02/17/2020 Findings: Interim worsening of bilateral infiltrates, particularly on the right. The heart is borderline enlarged. The pleural spaces are clear. Left arm PICC is again demonstrated Impression: Worsening bilateral infiltrates over one day, likely pneumonia CT chest - 02/19/20 - IMPRESSION: Increased extensive patchy ground-glass opacities and densities throughout the lungs, suggestive of Covid 19 infection. Chest x-ray 02/23/20 - Procedure: XRAY Chest 1v As Indication: Reason For Exam: INFECT Technique: One view of the chest Comparison: 02/20/2020 Findings: Allowing for differences in exposure technique, bilateral mid and lower lung infiltrates are probably unchanged. The heart size is normal. The pleural spaces are clear. Impression: Unchanged, over 4 days, findings as above. Chest x-ray - 02/25/20 - FINDINGS: Lungs: Interval slightly worsening bilateral airspace disease. Pleural space: Unremarkable. No pneumothorax. Heart: Unremarkable. No cardiomegaly. Mediastinum: Unremarkable. Bones/joints: Unremarkable. IMPRESSION: Interval slightly worsening bilateral airspace disease. Chest x-ray - 03/02/20 - Procedure: XRAY Chest 1v Indication: Shortness of breath Technique: One view of the chest Comparison: 02/25/2020 Findings: Bilateral interstitial and airspace infiltrates are unchanged. The heart size is normal. Left arm PICC is again demonstrated Impression: Unchanged, over one day, findings as above. Chest x-ray - 03/06/20 - Procedure: XRAY Chest 1v Indication: Shortness of breath Technique: One view of the chest Comparison: 03/02/2020 Findings: Bilateral infiltrates are unchanged. Normal heart size. Pleural spaces are clear Chest x-ray - 03/12/10 - Impression: COMPARISON: Chest radiograph March 06, 2020. FINDINGS/IMPRESSION: Improving basilar infiltrates. Follow chest radiograph recommended. The upper lung finley are clear. No pneumothorax. Stable cardiomegaly. Stable left upper extremity PICC line. anged, over 4 days, findings as above. Chest x-ray - 03/17/20 - Procedure: XRAY Chest 1v Indication: Shortness of breath Technique: One view of the chest Comparison: 03/12/2020 Findings: Left arm PICC is again demonstrated. Infiltrates are unchanged. The heart size is upper limits of normal. Impression: Unchanged, over 5 days, findings as above. Abdominal US - IMPRESSION: 1. Gallbladder is normal. 2. Hepatic steatosis. 3. 1.7 cm cyst right kidney. Impression. Chest x-ray - Procedure: XRAY Chest 1v Indication: Shortness of breath Technique: One view of the chest Comparison: 03/17/2020 Findings: Bilateral right greater than left infiltrates again demonstrated. The heart size is normal. There is a left arm PICC in good position. Impression: Unchanged, over 5 days, findings as above. Microbiology Date/Time Source Procedure Growth Status 03/18/20 06:15 Urine,Clean Catch Urine Culture - Final Escherichia Coli Complete 03/17/20 18:35 Blood Blood Culture - Preliminary NO GROWTH AFTER 4 DAYS Resulted 02/10/20 06:30 Nasopharynx SARS-CoV-2 RdRp Gene Assay - Final Complete Laboratory Tests Test 03/22/20 21:43 03/22/20 23:54 03/23/20 04:08 03/23/20 05:11 POC Whole Blood Glucose Pending 137 MG/DL (74-106) H Pending White Blood Count 11.0 K/UL (4.8-10.8) H Red Blood Count 4.50 M/UL (4.70-6.10) L Hemoglobin 12.5 G/DL (14.2-18.0) L Hematocrit 39.0 % (42.0-52.0) L Mean Corpuscular Volume 87 FL (80-99) Mean Corpuscular Hemoglobin 27.8 PG (27.0-31.0) Mean Corpuscular Hemoglobin Concent 32.1 G/DL (32.0-36.0) Red Cell Distribution Width 13.9 % (11.6-14.8) Platelet Count 253 K/UL (150-450) Mean Platelet Volume 6.5 FL (6.5-10.1) Neutrophils (%) (Auto) % (45.0-75.0) Lymphocytes (%) (Auto) % (20.0-45.0) Monocytes (%) (Auto) % (1.0-10.0) Eosinophils (%) (Auto) % (0.0-3.0) Basophils (%) (Auto) % (0.0-2.0) Differential Total Cells Counted 100 Neutrophils % (Manual) 90 % (45-75) H Lymphocytes % (Manual) 5 % (20-45) L Monocytes % (Manual) 3 % (1-10) Eosinophils % (Manual) 0 % (0-3) Basophils % (Manual) 2 % (0-2) Band Neutrophils 0 % (0-8) Platelet Estimate Adequate Platelet Morphology Normal Hypochromasia 1+ Sodium Level 135 MMOL/L (136-145) L Potassium Level 3.9 MMOL/L (3.5-5.1) Chloride Level 98 MMOL/L (98-107) Carbon Dioxide Level 33 MMOL/L (21-32) H Anion Gap 4 mmol/L (5-15) L Blood Urea Nitrogen 31 mg/dL (7-18) H Creatinine 0.7 MG/DL (0.55-1.30) Estimat Glomerular Filtration Rate > 60 mL/min (>60) Glucose Level 243 MG/DL (74-106) H Uric Acid 2.0 MG/DL (2.6-7.2) L Calcium Level 8.4 MG/DL (8.5-10.1) L Phosphorus Level 3.4 MG/DL (2.5-4.9) Magnesium Level 1.9 MG/DL (1.8-2.4) Total Bilirubin 0.5 MG/DL (0.2-1.0) Aspartate Amino Transf (AST/SGOT) 75 U/L (15-37) H Alanine Aminotransferase (ALT/SGPT) 242 U/L (12-78) H Alkaline Phosphatase 190 U/L (46-116) H C-Reactive Protein, Quantitative 0.6 mg/dL (0.00-0.90) Pro-B-Type Natriuretic Peptide 261 pg/mL (0-125) H Total Protein 5.5 G/DL (6.4-8.2) L Albumin 2.0 G/DL (3.4-5.0) L Globulin 3.5 g/dL Albumin/Globulin Ratio 0.6 (1.0-2.7) L Test 03/23/20 11:36 POC Whole Blood Glucose 214 MG/DL (74-106) H Current Medications Medications (Trade) Dose Ordered Sig/Dennis Route PRN Reason Start Time Stop Time Status Last Admin Dose Admin Acetaminophen (Tylenol) 650 mg Q4H PRN ORAL Mild Pain (Pain Scale 1-3) 03/09/20 12:00 04/08/20 11:59 Bisacodyl (Dulcolax) 10 mg HSPRN PRN RECTAL Constipation 02/05/20 13:15 05/05/20 13:14 Bisacodyl (Dulcolax) 10 mg Q12H PRN RECTAL Constipation 03/18/20 16:45 06/16/20 16:44 Ceftriaxone Sodium 1 gm/ Dextrose 50 ml @ 100 mls/hr Q24H IVPB 03/21/20 17:00 03/28/20 15:59 03/22/20 16:55 Chlorhexidine Gluconate (Marlen-Hex 2%) 1 applic DAILY@2000 TOPIC 02/14/20 20:00 05/14/20 19:59 03/22/20 21:32 Clonidine HCl (Catapres TTS-2) 1 patch QWEEK TDERMAL 03/21/20 18:00 06/19/20 17:59 03/21/20 17:22 Dextrose 1,000 ml @ 0 mls/hr Q24H PRN IV PN interrupted or unavailable 03/09/20 20:00 04/08/20 19:59 Dextrose (Dextrose 50%) 25 ml Q30M PRN IV Hypoglycemia 03/10/20 00:00 06/08/20 00:00 Dextrose (Dextrose 50%) 50 ml Q30M PRN IV Hypoglycemia 03/10/20 00:00 06/08/20 00:00 Enoxaparin Sodium (Lovenox) 40 mg DAILY SUBQ 03/13/20 12:00 06/11/20 11:59 03/23/20 08:37 Fat Emulsion Intravenous 192 ml/Amino Acids/ Electrolytes/ Dextrose 1,992 ml @ 83 mls/hr Q24H IV 03/17/20 20:00 04/16/20 19:59 03/22/20 21:32 Furosemide (Lasix) 20 mg EVERY 8 HOURS IV 03/19/20 14:00 04/18/20 13:59 03/23/20 14:22 Hydralazine HCl (Apresoline) 10 mg Q6H PRN IV For High Blood Pressure 03/09/20 17:00 06/07/20 16:59 03/21/20 17:19 Insulin Aspart (NovoLOG) Q6HR SUBQ 03/10/20 00:00 06/08/20 00:00 03/23/20 11:53 Insulin Detemir (Levemir) 18 units Q12HR SUBQ 03/14/20 21:00 06/10/20 20:59 03/23/20 08:50 Lactulose (Cephulac) 20 gm THREE TIMES A DAY ORAL 03/08/20 13:00 04/07/20 12:59 03/23/20 08:36 Methylprednisolone Sodium Succinate (Solu-MEDROL) 40 mg EVERY 8 HOURS IVP 03/22/20 14:00 06/20/20 13:59 03/23/20 14:22 Pantoprazole (Protonix) 40 mg EVERY 12 HOURS IVP 03/12/20 21:00 04/11/20 20:59 03/23/20 08:36 Polyethylene Glycol (Miralax) 17 gm BEDTIME ORAL 03/08/20 21:00 04/07/20 20:59 03/19/20 20:41 Trimethoprim/ Sulfamethoxazole 20 ml/Dextrose 570 ml @ 380 mls/hr [id number] BACTRIM IV 03/19/20 16:00 03/26/20 16:00 03/23/20 08:36 Vitamin D (Vitamin D) 5,000 unit DAILY ORAL 03/15/20 09:00 04/14/20 08:59 03/23/20 08:36 Kisha Salazar MD Mar 23, 2020 16:26
[2020-03-23] MEDS: cefTRIAXone 1 GM in D5W 50 ML IVPB SCH (17:12)
[2020-03-23] MEDS ORDERED: Tubing IV Secondary IV ONE (18:39)
[2020-03-23] MEDS ORDERED: NS 275ml ONE (18:39)
--- NOTE | 2020-03-23 19:25 | Cardiology Progress Note ---
Assessment/Plan Assessment/Plan Acute covid 19 pneumonia hypoxemia infiltrate bilat bacteremia hypernatremia / hyponatremia mild abn lfts toleratign some decrease in bipap hypoxemia unlikely cardiac related off anticoagulation except for dvt ppx dose continue supportive care bp is high will increase tts patch and keep on iv hydralazine will use fo dbp elelvated as well is nto taking any po meds so is off norvasc to resuem when he start ttakign pos again echo reviewed almost weeks ago cxr noted no exchange teller 5 day still with bilat infiltrate bnp not sig cahnged min abn on diuretic already , he is hypoxemic still he was on full dose heparin previously as well now on dvt ppx abg improved oxygenation mildly Subjective Subjective pt in covid 19 isolation per rn RT Jeannine titrating patient's bipap, not tolerating at 90%, placed at 95% for now, tolerating well. Important Events on Shift:Pt refused all care except medications Objective Last 24 Hour Vital Signs Date Time Temp Pulse Resp B/P (MAP) Pulse Ox O2 Delivery O2 Flow Rate FiO2 03/23/20 16:00 97.3 100 27 146/103 (117) 94 03/23/20 16:00 95 03/23/20 16:00 Bi-pap 100.0 03/23/20 16:00 91 03/23/20 14:30 100 24 95 100 03/23/20 12:00 82 03/23/20 12:00 95 03/23/20 12:00 Bi-pap 100.0 03/23/20 11:42 97.2 89 22 147/97 (114) 97 03/23/20 11:00 96 23 95 95 03/23/20 08:00 Bi-pap 100.0 03/23/20 08:00 100 03/23/20 08:00 97.2 80 20 143/91 (108) 96 03/23/20 07:43 76 03/23/20 07:02 80 19 95 100 03/23/20 04:00 97.2 81 24 138/87 (104) 100 03/23/20 04:00 Bi-pap 100.0 03/23/20 04:00 100 03/23/20 04:00 133 03/23/20 03:00 80 24 94 100 03/23/20 00:00 85 03/23/20 00:00 97.5 90 24 135/97 (110) 96 03/23/20 00:00 Bi-pap 100.0 03/22/20 23:00 84 25 95 100 03/22/20 20:16 77 03/22/20 20:00 Bi-pap 100.0 03/22/20 20:00 100 03/22/20 20:00 97.5 87 24 141/89 (106) 93 Intake and Output 03/22/20 03/23/20 19:00 07:00 Intake Total 1093 ml Output Total 1800 ml 1650 ml Balance -707 ml -1650 ml IV Total 1093 ml Output Urine Total 1800 ml 1650 ml Laboratory Tests Test 03/22/20 21:43 03/22/20 23:54 03/23/20 04:08 03/23/20 05:11 POC Whole Blood Glucose Pending 137 MG/DL (74-106) H Pending White Blood Count 11.0 K/UL (4.8-10.8) H Red Blood Count 4.50 M/UL (4.70-6.10) L Hemoglobin 12.5 G/DL (14.2-18.0) L Hematocrit 39.0 % (42.0-52.0) L Mean Corpuscular Volume 87 FL (80-99) Mean Corpuscular Hemoglobin 27.8 PG (27.0-31.0) Mean Corpuscular Hemoglobin Concent 32.1 G/DL (32.0-36.0) Red Cell Distribution Width 13.9 % (11.6-14.8) Platelet Count 253 K/UL (150-450) Mean Platelet Volume 6.5 FL (6.5-10.1) Neutrophils (%) (Auto) % (45.0-75.0) Lymphocytes (%) (Auto) % (20.0-45.0) Monocytes (%) (Auto) % (1.0-10.0) Eosinophils (%) (Auto) % (0.0-3.0) Basophils (%) (Auto) % (0.0-2.0) Differential Total Cells Counted 100 Neutrophils % (Manual) 90 % (45-75) H Lymphocytes % (Manual) 5 % (20-45) L Monocytes % (Manual) 3 % (1-10) Eosinophils % (Manual) 0 % (0-3) Basophils % (Manual) 2 % (0-2) Band Neutrophils 0 % (0-8) Platelet Estimate Adequate Platelet Morphology Normal Hypochromasia 1+ Sodium Level 135 MMOL/L (136-145) L Potassium Level 3.9 MMOL/L (3.5-5.1) Chloride Level 98 MMOL/L (98-107) Carbon Dioxide Level 33 MMOL/L (21-32) H Anion Gap 4 mmol/L (5-15) L Blood Urea Nitrogen 31 mg/dL (7-18) H Creatinine 0.7 MG/DL (0.55-1.30) Estimat Glomerular Filtration Rate > 60 mL/min (>60) Glucose Level 243 MG/DL (74-106) H Uric Acid 2.0 MG/DL (2.6-7.2) L Calcium Level 8.4 MG/DL (8.5-10.1) L Phosphorus Level 3.4 MG/DL (2.5-4.9) Magnesium Level 1.9 MG/DL (1.8-2.4) Total Bilirubin 0.5 MG/DL (0.2-1.0) Aspartate Amino Transf (AST/SGOT) 75 U/L (15-37) H Alanine Aminotransferase (ALT/SGPT) 242 U/L (12-78) H Alkaline Phosphatase 190 U/L (46-116) H C-Reactive Protein, Quantitative 0.6 mg/dL (0.00-0.90) Pro-B-Type Natriuretic Peptide 261 pg/mL (0-125) H Total Protein 5.5 G/DL (6.4-8.2) L Albumin 2.0 G/DL (3.4-5.0) L Globulin 3.5 g/dL Albumin/Globulin Ratio 0.6 (1.0-2.7) L Test 03/23/20 11:36 03/23/20 17:21 POC Whole Blood Glucose 214 MG/DL (74-106) H Pending Objective pt in covid 19 isoaltion with acute infection Manan Awan MD Mar 23, 2020 19:25
--- NOTE | 2020-03-23 19:34 | NUR ---
NURSE HAND-OFF REPORT: Important Events on Shift: decreased FiO2 to 95%, tolerating well. Patient Status: alert Diet: TPN at 83cc/hr Pending Orders: Pending Results/Labs: Pending MD notification: Latest Vital Signs: Temperature 97.3 , Pulse 100 , B/P 146 /103 , Respiratory Rate 27 , O2 SAT 94 , Room Air, O2 Flow Rate 100.0 . Vital Sign Comment: EKG Rhythm: Sinus Rhythm Rhythm change?: N MD Notified?: Courtney Paige MD Response: Message left await call Latest Hassan Fall Score: 35 Fall Risk: Medium Risk Safety Measures: Call light Within Reach, Bed Alarm Zone 1, Side Rails Side Rails x3, Bed position Low and Locked. Fall Precautions: Yellow Socks Yellow Gown Door Sign Patient Fall Education Report given to Tiana MATHEW.
--- NOTE | 2020-03-23 19:40 | NUR ---
NURSE NOTES: Report received from PRIYANKA Tsang. Patient is awake on bed, alert and oriented x 4. Cardica monitor is in place, shows sinus rhythm with no chest pain reported. On bipap 20/, FI02 95% saturating 2-93%. With PICC line on left upper arm running TPN @ 83cc/hour. On clear liquid site, instructed and amenable. Accucheck Q6. Patient is covid positive, isolation protocol observed and maintained. On bedrest, bed alarm is on. Safety measures are in place, bed in lowest and locked position, side rails up x 2, call light button and bedside table within reach, will continue plan of care.
[2020-03-23 20:00] VITALS: BP 149/95
[2020-03-23] MEDS: TPN IV SCH (20:43)
[2020-03-23] MEDS: FAT EMULSION 20% IV SCH (20:43)
[2020-03-23] MEDS: Miralax 17gm pkt ORAL SCH (20:44)
[2020-03-23] MEDS: Dyna-Hex 2% Top Sol 2oz TOPIC SCH (20:44)
--- NOTE | 2020-03-23 23:00 | NUR ---
NURSE NOTES: Oral care provided, noted dryness and black plaque all over his mouth. Patient desaturate to low 86-89% when taking off from his mask. Will closely monitor.
[2020-03-24] VITALS: BP 143/81
[2020-03-24] MEDS: NovoLOG Insulin Flexpen SUBQ SCH ×5 (00:09→23:59)
[2020-03-24 04:00] VITALS: BP 136/85
[2020-03-24] MEDS: Solu-MEDROL 40mg Inj IVP SCH ×3 (05:16→22:46)
[2020-03-24 05:30] LABS: HEMATOCRIT 40.1 % (42.0-52.0); HEMOGLOBIN 12.8 G/DL (14.2-18.0); MEAN CORPUSCULAR VOLUME 87 FL (80-99); PLATELET COUNT 268 K/UL (150-450); RED BLOOD COUNT 4.61 M/UL (4.70-6.10); RED CELL DISTRIBUTION WIDTH 14.2 % (11.6-14.8); WHITE BLOOD COUNT 11.7 K/UL (4.8-10.8)
[2020-03-24 06:16] LABS: ALANINE AMINOTRANSFERASE 299 U/L (12-78); ALBUMIN 2.1 G/DL (3.4-5.0); ALBUMIN/GLOBULIN RATIO 0.6 (1.0-2.7); ALKALINE PHOSPHATASE 195 U/L (46-116); ANION GAP 5 mmol/L (5-15); ASPARTATE AMINO TRANSFERASE 80 U/L (15-37); BILIRUBIN,TOTAL 0.6 MG/DL (0.2-1.0); BLOOD UREA NITROGEN 31 mg/dL (7-18); CALCIUM 8.6 MG/DL (8.5-10.1); CARBON DIOXIDE 33 MMOL/L (21-32); CHLORIDE 96 MMOL/L (98-107); CREATININE 0.7 MG/DL (0.55-1.30); POTASSIUM 4.1 MMOL/L (3.5-5.1); SODIUM 134 MMOL/L (136-145)
[2020-03-24 06:33] LABS: CHOLESTEROL 196 MG/DL (< 200); HDL CHOLESTEROL 38 MG/DL (40-60); PHOSPHORUS 3.4 MG/DL (2.5-4.9); TRIGLYCERIDES 173 MG/DL (30-150)
--- NOTE | 2020-03-24 07:22 | NUR ---
NURSE HAND-OFF REPORT: Important Events on Shift: Patient has been resting well the whole shift, no desaturation nor chest pain complaints made. Patient Status: Patient is awake, in stable condition. Plan of care endorsed. Diet: TPN @ 83cc/hour Pending Orders: none Pending Results/Labs:AM lab result Pending MD notification:none Latest Vital Signs: Temperature 97.9 , Pulse 94 , B/P 136 /85 , Respiratory Rate 25 , O2 SAT 93 , Room Air, O2 Flow Rate 95.0 . Vital Sign Comment: stable EKG Rhythm: Sinus Rhythm Rhythm change?: N MD Notified?: Courtney Paige MD Response: Message left await call Latest Hassan Fall Score: 45 Fall Risk: High Risk Safety Measures: Call light Within Reach, Bed Alarm Zone 1, Side Rails Side Rails x3, Bed position Low and Locked. Fall Precautions: Yellow Socks Yellow Gown Door Sign Patient Fall Education Report given to PRIYANKA Sorensen.
--- NOTE | 2020-03-24 07:35 | NUR ---
NURSE NOTES: Report received from PRIYANKA Montiel. Patient is awake on bed, alert and oriented x 4. Cardica monitor is in place, shows sinus rhythm with no chest pain reported. On bipap 20/12, FI02 95% saturating 95%. With PICC line on left upper arm running TPN @ 83cc/hour. Patient is covid positive, isolation protocol observed and maintained. On bedrest, bed alarm is on. Safety measures are in place, bed in lowest and locked position, side rails up x 2, call light button and bedside table within reach.
[2020-03-24 08:00] VITALS: BP 128/80
[2020-03-24] MEDS: Vitamin D 1000 units Tab ORAL SCH ×2 (08:53→09:00)
[2020-03-24] MEDS: Trimethoprim/Sulfamethoxazole 20 ML in D5W 500ml 550 ML IV SCH ×2 (08:53→16:31)
[2020-03-24] MEDS: Lactulose 20gm/30ml UDC ORAL SCH ×4 (08:53→18:00)
[2020-03-24] MEDS: Pantoprazole Inj IVP SCH ×2 (08:53→20:37)
[2020-03-24] MEDS: Enoxaparin 40mg Inj SUBQ SCH (08:56)
--- NOTE | 2020-03-24 09:47 | NUR ---
RD ASSESSMENT & RECOMMENDATIONS SEE CARE ACTIVITY FOR COMPLETE ASSESSMENT DAILY ESTIMATED NEEDS: Needs based on Pulmonary, cardiac 81kg abw 23-28 kcals/kg 3322-8224 total kcals 1.25-1.5 g protein/kg 101-122 g total protein 25-30 mL/kg 3282-7679 total fluid mLs NUTRITION DIAGNOSIS: * Inadequate oral intake R/T clinical and respiratory status as evidenced by COVID-19 ++, on continuous BIPAP, prolonged meal refusals, pt is now on TPN. * Decreased sodium and fat needs r/t HTN and obesity as evidenced by pt w/ cardiac history, elev BP (159/98-> now improved, on BP meds and diuretics), BMI >30, obese per guidelines. (INACTIVE) CURRENT DIET: NPO-> now CLD PO DIET RECOMMENDATIONS-->> CLD as per GI PARENTERAL NUTRITION RECOMMENDATIONS: D/AA Rate: 75 IL Rate: 8 Total Rate: 83 Volume: 1992 % Dextrose: 15 % AA: 5.5 Energy (kcals/kg): 1698 Protein (g/kg protein): 99 Nonprotein KCALS: 1302 GIR (mg CHO/kg/min): 2.3 % Fat KCALS: 22 NPC: N Ratio: 82.4:1 TPN Comment: - Rec TPN change d/t elevated LFTs and triglyceride - D15% + AA5.5% @75ml/hr with IL20% @8ml/hr- all 3:1, total of 83ml/hr - Check lytes daily, replete as needed - Monitor BGs, LFTs, and Triglyceride closely w/ TPN - TPN @ goal provides 91% est kcal and 99% est prot needs ADDITIONAL RECOMMENDATIONS: 1) Maintain calibrated bedscale wts; obtain a standing wt as able 2) Obtain HgA1C for eval 3) Monitor LFT's, BGs, and lipid panel, need for formulary change 4) Monitor hydration status- now on TPN 5) Consider TPN -> now ordered / Monitor po intake of CLD, BG and need for TPN formulary change. Poor po/ refusal of CLD meals
--- NOTE | 2020-03-24 11:22 | NUR ---
CASE MANAGEMENT:REVIEW 03/24/20 SI: COVID PNA. UTI 97.3 88 21 21 128/80 95% ON BIPAP W/95% FIO2 WBC+11.7 H/H-12.8/40.1 CO2+33 BUN+31 AST/ALT+80/299 IS: IV SOLUMEDROL Q8HRS IV ROCEPHIN Q24 IV BACTRIM Q8HRS IV LASIX Q8HR TPN/IL @83/HR LOVENOX SQ QD : STEP DOWN UNIT DCP: PATIENT WAS LIVING IN A HOTEL
--- NOTE | 2020-03-24 11:22 | Pulmonology Progress Note ---
Subjective ROS Limited/Unobtainable: Yes Interval Events: tolerating BiPAP; saturating better Constitutional: Denies: fever HEENT: Repors: no symptoms Respiratory: Reports: dry cough, shortness of breath Cardiovascular: Reports: no symptoms Gastrointestinal/Abdominal: Denies: nausea, vomiting, diarrhea Psychiatric: Denies: depression Skin: Denies: rash Musculoskeletal: Denies: pain Allergies: Coded Allergies: No Known Allergies (Unverified , 02/05/20) Objective Last 24 Hour Vital Signs Date Time Temp Pulse Resp B/P (MAP) Pulse Ox O2 Delivery O2 Flow Rate FiO2 03/24/20 08:00 82 03/24/20 08:00 Bi-pap 95.0 03/24/20 08:00 97.3 88 21 128/80 (96) 95 03/24/20 08:00 95 03/24/20 07:32 86 25 93 100 03/24/20 04:00 97.9 94 25 136/85 (102) 93 03/24/20 04:00 95 03/24/20 04:00 Bi-pap 95.0 03/24/20 03:44 78 03/24/20 00:00 97.5 95 27 143/81 (101) 95 03/24/20 00:00 Bi-pap 95.0 03/24/20 00:00 100 03/24/20 00:00 95 03/23/20 23:20 92 23 94 100 03/23/20 20:00 86 03/23/20 20:00 Bi-pap 95.0 03/23/20 20:00 95 03/23/20 20:00 97.8 92 25 149/95 (113) 94 03/23/20 18:45 91 21 93 100 03/23/20 16:00 97.3 100 27 146/103 (117) 94 03/23/20 16:00 95 03/23/20 16:00 Bi-pap 100.0 03/23/20 16:00 91 03/23/20 14:30 100 24 95 100 03/23/20 12:00 82 03/23/20 12:00 95 03/23/20 12:00 Bi-pap 100.0 03/23/20 11:42 97.2 89 22 147/97 (114) 97 Intake and Output 03/23/20 03/24/20 19:00 07:00 Intake Total 83 ml 913 ml Output Total 1400 ml 1800 ml Balance -1317 ml -887 ml IV Total 83 ml 913 ml Output Urine Total 1400 ml 1800 ml General Appearance: WD/WN, no acute distress HEENT: normocephalic, atraumatic Respiratory: chest wall non-tender Cardiovascular: normal rate, regular rhythm Abdomen: normal bowel sounds, soft, non tender, other - obese Laboratory Tests 03/23/20 11:36: POC Whole Blood Glucose 214H 03/23/20 17:21: POC Whole Blood Glucose [Pending] 03/23/20 20:49: POC Whole Blood Glucose 220H 03/23/20 23:57: POC Whole Blood Glucose [Pending] 03/24/20 04:38: White Blood Count 11.7H, Red Blood Count 4.61L, Hemoglobin 12.8L, Hematocrit 40.1L, Mean Corpuscular Volume 87, Mean Corpuscular Hemoglobin 27.9, Mean Corpuscular Hemoglobin Concent 32.0, Red Cell Distribution Width 14.2, Platelet Count 268, Mean Platelet Volume 6.8, Neutrophils (%) (Auto) , Lymphocytes (%) (Auto) , Monocytes (%) (Auto) , Eosinophils (%) (Auto) , Basophils (%) (Auto) , Differential Total Cells Counted 100, Neutrophils % (Manual) 90H, Lymphocytes % (Manual) 4L, Monocytes % (Manual) 6, Eosinophils % (Manual) 0, Basophils % (M anual) 0, Band Neutrophils 0, Platelet Estimate Adequate, Platelet Morphology Normal, Anisocytosis 1+, Sodium Level 134L, Potassium Level 4.1, Chloride Level 96L, Carbon Dioxide Level 33H, Anion Gap 5, Blood Urea Nitrogen 31H, Creatinine 0.7, Estimat Glomerular Filtration Rate > 60, Glucose Level 191H, Uric Acid 1.8L , Calcium Level 8.6, Phosphorus Level 3.4, Magnesium Level 1.9, Total Bilirubin 0.6, Aspartate Amino Transf (AST/SGOT) 80H, Alanine Aminotransferase (ALT/SGPT) 299H, Alkaline Phosphatase 195H, C-Reactive Protein, Quantitative < 0.4, Pro-B-Type Natriuretic Peptide 256H, Total Protein 5.6L, Albumin 2.1L, Globulin 3.5, Albumin/Globulin Ratio 0.6L, Triglycerides Level 173H, Cholesterol Level 196, LDL Cholesterol 120H, HDL Cholesterol 38L, Cholesterol/HDL Ratio 5.2H 03/24/20 05:18: POC Whole Blood Glucose [Pending] Current Medications Medications (Trade) Dose Ordered Sig/Dennis Route PRN Reason Start Time Stop Time Status Last Admin Dose Admin Acetaminophen (Tylenol) 650 mg Q4H PRN ORAL Mild Pain (Pain Scale 1-3) 03/09/20 12:00 04/08/20 11:59 Bisacodyl (Dulcolax) 10 mg HSPRN PRN RECTAL Constipation 02/05/20 13:15 05/05/20 13:14 Bisacodyl (Dulcolax) 10 mg Q12H PRN RECTAL Constipation 03/18/20 16:45 06/16/20 16:44 Ceftriaxone Sodium 1 gm/ Dextrose 50 ml @ 100 mls/hr Q24H IVPB 03/21/20 17:00 03/28/20 15:59 03/23/20 17:12 Chlorhexidine Gluconate (Marlen-Hex 2%) 1 applic DAILY@2000 TOPIC 02/14/20 20:00 05/14/20 19:59 03/23/20 20:44 Clonidine HCl (Catapres TTS-2) 1 patch QWEEK TDERMAL 03/21/20 18:00 06/19/20 17:59 03/21/20 17:22 Dextrose 1,000 ml @ 0 mls/hr Q24H PRN IV PN interrupted or unavailable 03/09/20 20:00 04/08/20 19:59 Dextrose (Dextrose 50%) 25 ml Q30M PRN IV Hypoglycemia 03/10/20 00:00 06/08/20 00:00 Dextrose (Dextrose 50%) 50 ml Q30M PRN IV Hypoglycemia 03/10/20 00:00 06/08/20 00:00 Enoxaparin Sodium (Lovenox) 40 mg DAILY SUBQ 03/13/20 12:00 06/11/20 11:59 03/24/20 08:56 Fat Emulsion Intravenous 192 ml/Amino Acids/ Electrolytes/ Dextrose 1,992 ml @ 83 mls/hr Q24H IV 03/17/20 20:00 04/16/20 19:59 03/23/20 20:43 Furosemide (Lasix) 20 mg EVERY 8 HOURS IV 03/19/20 14:00 04/18/20 13:59 03/24/20 05:16 Hydralazine HCl (Apresoline) 10 mg Q6H PRN IV For High Blood Pressure 03/09/20 17:00 06/07/20 16:59 03/21/20 17:19 Insulin Aspart (NovoLOG) Q6HR SUBQ 03/10/20 00:00 06/08/20 00:00 03/24/20 05:25 Insulin Detemir (Levemir) 18 units Q12HR SUBQ 03/14/20 21:00 06/10/20 20:59 03/23/20 20:50 Lactulose (Cephulac) 20 gm THREE TIMES A DAY ORAL 03/08/20 13:00 04/07/20 12:59 03/23/20 08:36 Methylprednisolone Sodium Succinate (Solu-MEDROL) 40 mg EVERY 8 HOURS IVP 03/22/20 14:00 06/20/20 13:59 03/24/20 05:16 Pantoprazole (Protonix) 40 mg EVERY 12 HOURS IVP 03/12/20 21:00 04/11/20 20:59 03/24/20 08:53 Polyethylene Glycol (Miralax) 17 gm BEDTIME ORAL 03/08/20 21:00 04/07/20 20:59 03/23/20 20:44 Trimethoprim/ Sulfamethoxazole 20 ml/Dextrose 570 ml @ 380 mls/hr [id number] BACTRIM IV 03/19/20 16:00 03/26/20 16:00 03/24/20 08:53 Vitamin D (Vitamin D) 5,000 unit DAILY ORAL 03/15/20 09:00 04/14/20 08:59 03/23/20 08:36 Assessment/Plan Assessment/Plan 1.COVID-19 pneumonia. - last COVID-19 test positive after two negative tests - CTA 02/05/2020 ground-glass and consolidating infiltrates in the dependent portions of both lower lobes and to lesser degree the upper lobes consistent with bilateral pneumonia. No evidence of pulmonary embolus. - CXR 02/17/2020 worsening bilateral infiltrates; Repeat CXR shows basilar linear densities - CT chest 02/18 shows Increased extensive patchy ground-glass opacities and densities throughout the lungs, suggestive of Covid 19 infection. - currently on BiPAP. Saturations 90%. - Mycoplasma pneumoniae IgG 273; M. pneumoniae IgM titer within normal limits - D-dimer 0.90; on full dose Lovenox -Discontinued Decadron, now on Solumedrol - s/p remdesivir - is net I/O negative -We will continue TPN He has had a progressive increase in LDH,-started on Bactrim due to concern about pneumocystis. - Looking unchanged today. - CXR 03/17 no significant change - CXR 03/22 no significant change 2. Initial negative rapid COVID-19 gene assay.- however repeat COVID-19 test positive 3. Smoker. 4. DVT ppx - on lovenox 5. Hypertension - on hydralazine, - s/p norvasc 6. Blood culture positive for gram positive cocci staph aureus 02/06 - on Abx - CT abd/pelvis showed no abscess per ID - TTE/ FERNY held off due to COVID-19 status - repeat BCx negative for growth 03/17 7. Leukocytosis; resolved - ID following 8. Gram negative zack UTI - s/p rocephin per ID recs - s/p rocephin, cefepime per ID 9. Elevated LFT - positive Hep C Counseled on importance of oral care Continue BiPAP; failed weaning with NRB; will attempt with lowering FiO2 now on lasix (03/19-) The care for this patient was discussed with my supervising physician Time spent for this case was approximately 31 minutes Edilson Marinelli Mar 24, 2020 11:22
--- NOTE | 2020-03-24 11:41 | General Progress Note ---
Subjective ROS Limited/Unobtainable: No Allergies: Coded Allergies: No Known Allergies (Unverified , 02/05/20) Objective Last 24 Hour Vital Signs Date Time Temp Pulse Resp B/P (MAP) Pulse Ox O2 Delivery O2 Flow Rate FiO2 03/24/20 08:00 82 03/24/20 08:00 Bi-pap 95.0 03/24/20 08:00 97.3 88 21 128/80 (96) 95 03/24/20 08:00 95 03/24/20 07:32 86 25 93 100 03/24/20 04:00 97.9 94 25 136/85 (102) 93 03/24/20 04:00 95 03/24/20 04:00 Bi-pap 95.0 03/24/20 03:44 78 03/24/20 00:00 97.5 95 27 143/81 (101) 95 03/24/20 00:00 Bi-pap 95.0 03/24/20 00:00 100 03/24/20 00:00 95 03/23/20 23:20 92 23 94 100 03/23/20 20:00 86 03/23/20 20:00 Bi-pap 95.0 03/23/20 20:00 95 03/23/20 20:00 97.8 92 25 149/95 (113) 94 03/23/20 18:45 91 21 93 100 03/23/20 16:00 97.3 100 27 146/103 (117) 94 03/23/20 16:00 95 03/23/20 16:00 Bi-pap 100.0 03/23/20 16:00 91 03/23/20 14:30 100 24 95 100 03/23/20 12:00 82 03/23/20 12:00 95 03/23/20 12:00 Bi-pap 100.0 03/23/20 11:42 97.2 89 22 147/97 (114) 97 Intake and Output 03/23/20 03/24/20 19:00 07:00 Intake Total 83 ml 913 ml Output Total 1400 ml 1800 ml Balance -1317 ml -887 ml IV Total 83 ml 913 ml Output Urine Total 1400 ml 1800 ml Laboratory Tests 03/23/20 17:21: POC Whole Blood Glucose [Pending] 03/23/20 20:49: POC Whole Blood Glucose 220H 03/23/20 23:57: POC Whole Blood Glucose [Pending] 03/24/20 04:38: White Blood Count 11.7H, Red Blood Count 4.61L, Hemoglobin 12.8L, Hematocrit 40.1L, Mean Corpuscular Volume 87, Mean Corpuscular Hemoglobin 27.9, Mean Corpuscular Hemoglobin Concent 32.0, Red Cell Distribution Width 14.2, Platelet Count 268, Mean Platelet Volume 6.8, Neutrophils (%) (Auto) , Lymphocytes (%) (Auto) , Monocytes (%) (Auto) , Eosinophils (%) (Auto) , Basophils (%) (Auto) , Differential Total Cells Counted 100, Neutrophils % (Manual) 90H, Lymphocytes % (Manual) 4L, Monocytes % (Manual) 6, Eosinophils % (Manual) 0, Basophils % (Manual) 0, Band Neutrophils 0, Platelet Estimate Adequate, Platelet Morphology Normal, Anisocytosis 1+, Sodium Level 134L, Potassium Level 4.1, Chloride Level 96L, Carbon Dioxide Level 33H, Anion Gap 5, Blood Urea Nitrogen 31H, Creatinine 0.7, Estimat Glomerular Filtration Rate > 60, Glucose Level 191H, Uric Acid 1.8L , Calcium Level 8.6, Phosphorus Level 3.4, Magnesium Level 1.9, Total Bilirubin 0.6, Aspartate Amino Transf (AST/SGOT) 80H, Alanine Aminotransferase (ALT/SGPT) 299H, Alkaline Phosphatase 195H, C-Reactive Protein, Quantitative < 0.4, Pro-B-Type Natriuretic Peptide 256H, Total Protein 5.6L, Albumin 2.1L, Globulin 3.5, Albumin/Globulin Ratio 0.6L, Triglycerides Level 173H, Cholesterol Level 196, LDL Cholesterol 120H, HDL Cholesterol 38L, Cholesterol/HDL Ratio 5.2H 03/24/20 05:18: POC Whole Blood Glucose [Pending] Height (Feet): 5 Height (Inches): 10.00 Weight (Pounds): 240 General Appearance: no apparent distress EENT: normal ENT inspection Neck: supple Cardiovascular: tachycardia Respiratory/Chest: decreased breath sounds Abdomen: hypoactive bowel sounds Extremities: non-tender Assessment/Plan Status: stable, progressing Assessment/Plan: covid + on BIPAP DM HTN FTT constipation not stable for PEG could not tolerate NGT placement TPN for now bowel regimen covid care rising LFTS>>> will monitor>> most likely due to TPN will Da Wilson MD Mar 24, 2020 11:41
[2020-03-24 12:00] VITALS: BP 139/90
[2020-03-24] MEDS: Levemir Flexpen SUBQ SCH ×2 (12:07→20:58)
--- NOTE | 2020-03-24 13:45 | Nephrology Progress Note ---
Assessment/Plan Problem List: (1) Dehydration (2) Electrolyte imbalance (3) COVID-19 virus infection (4) Pneumonia (5) DMII (diabetes mellitus, type 2) (6) Protein malnutrition Assessment Azotemia, hypernatremia Hypoalbuminemia Staff Otilia bacteremia COVID-19 isolation, pneumonia, bilateral infiltrate Hypertension Diabetes mellitus History of smoking Plan March 24: Continue to be on TPN. Labs are reviewed. Aim to collect electr olytes. Discussed with pharmacy. Continue current consultants. March 23: Continues to be on TPN. Labs reviewed. Electrolytes and chemistries all acceptable. Discussed with pharmacy. Continue current management. March 22: On TPN. Labs reviewed. Low sodium noted. 3% saline to be continued. Continue to monitor electrolytes. Discussed with pharmacy. March 21: On TPN. Labs reviewed. Continue 3% saline and Lasix for mild hyponatremia. Continue TPN as these. Discussed with pharmacy. March 20: Remains on TPN. Labs reviewed. Serum sodium higher on IV Lasix and 3% saline infusion. Continue TPN as is. Continue to monitor renal parameters and electrolytes. Discussed with Dr. Mata March 19: Remains on TPN. Labs reviewed. Serum sodium 128. Will give 3% saline with IV Lasix. Continue to monitor electrolytes. No change in TPN composition. Discussed with pharmacy. March 18: Remains on TPN. Labs reviewed. Discussed with pharmacist. Will give 3 doses of IV Lasix 20 mg every 8 hours. Continue to monitor serum sodium electrolytes uric acid. White blood cells down. Continue per consultants. March 17: On TPN. Labs reviewed. Discussed with pharmacist. Sodium content increase. Continue to monitor CMP. Patient continues to have leukocytosis. March 16: On TPN. Labs reviewed. Discussed with pharmacist. Appropriate changes made. Continue to monitor electrolytes. March 15: Remains on TPN. Labs reviewed. Discussed with pharmacist. Continue per current management. March 14: Remains on TPN. Labs reviewed, stable. Vitamin D level low, replacement ordered. Continue to monitor electrolytes and renal parameters. March 13: Patient remains on TPN. Discussed with pharmacist. TPN's sodium content adjusted. Labs reviewed. Continue to monitor electrolytes. Blood pressure remains stable. Continue per consultants. March 12: Patient on TPN. Labs reviewed. CPK remains elevated. Abnormal electrolytes and high blood sugar discussed with pharmacist and TPN adjusted. Continue to monitor labs. Oral Protonix added. Ibuprofen discontinued. Can continue to monitor electrolytes and chemistries. Levemir for high blood sugar added. March 11: Patient on TPN. Labs as of 11:15 AM is still pending. Continue per current treatment plan. Will check labs and adjust TPN as needed. Continue per consultants. March 10: Patient on TPN. Labs reviewed. Electrolytes overall stable. CPK is elevated. Will monitor electrolyte, CPK level, lipid panel. Continue per consultants. Discussed with pharmacist. Discussed with RN. Nutritional evaluation noted. Previously: D5W 100 cc an hour Monitor electrolytes renal parameters TPN and Intralipid ordered Will follow Continue per consultants Dietary consult requested Subjective ROS Limited/Unobtainable: Yes Objective Objective Last 24 Hour Vital Signs Date Time Temp Pulse Resp B/P (MAP) Pulse Ox O2 Delivery O2 Flow Rate FiO2 03/24/20 12:00 95 03/24/20 12:00 Bi-pap 95.0 03/24/20 12:00 97.9 82 19 139/90 (106) 95 03/24/20 11:32 82 03/24/20 11:09 85 26 94 100 03/24/20 08:00 82 03/24/20 08:00 Bi-pap 95.0 03/24/20 08:00 97.3 88 21 128/80 (96) 95 03/24/20 08:00 95 03/24/20 07:32 86 25 93 100 03/24/20 04:00 97.9 94 25 136/85 (102) 93 03/24/20 04:00 95 03/24/20 04:00 Bi-pap 95.0 03/24/20 03:44 78 03/24/20 00:00 97.5 95 27 143/81 (101) 95 03/24/20 00:00 Bi-pap 95.0 03/24/20 00:00 100 03/24/20 00:00 95 03/23/20 23:20 92 23 94 100 03/23/20 20:00 86 03/23/20 20:00 Bi-pap 95.0 03/23/20 20:00 95 03/23/20 20:00 97.8 92 25 149/95 (113) 94 03/23/20 18:45 91 21 93 100 03/23/20 16:00 97.3 100 27 146/103 (117) 94 03/23/20 16:00 95 03/23/20 16:00 Bi-pap 100.0 03/23/20 16:00 91 03/23/20 14:30 100 24 95 100 Intake and Output 03/23/20 03/24/20 19:00 07:00 Intake Total 83 ml 913 ml Output Total 1400 ml 1800 ml Balance -1317 ml -887 ml IV Total 83 ml 913 ml Output Urine Total 1400 ml 1800 ml Current Medications Medications (Trade) Dose Ordered Sig/Dennis Route PRN Reason Start Time Stop Time Status Last Admin Dose Admin Acetaminophen (Tylenol) 650 mg Q4H PRN ORAL Mild Pain (Pain Scale 1-3) 03/09/20 12:00 04/08/20 11:59 Bisacodyl (Dulcolax) 10 mg HSPRN PRN RECTAL Constipation 02/05/20 13:15 05/05/20 13:14 Bisacodyl (Dulcolax) 10 mg Q12H PRN RECTAL Constipation 03/18/20 16:45 06/16/20 16:44 Ceftriaxone Sodium 1 gm/ Dextrose 50 ml @ 100 mls/hr Q24H IVPB 03/21/20 17:00 03/28/20 15:59 03/23/20 17:12 Chlorhexidine Gluconate (Marlen-Hex 2%) 1 applic DAILY@2000 TOPIC 02/14/20 20:00 05/14/20 19:59 03/23/20 20:44 Clonidine HCl (Catapres TTS-2) 1 patch QWEEK TDERMAL 03/21/20 18:00 06/19/20 17:59 03/21/20 17:22 Dextrose 1,000 ml @ 0 mls/hr Q24H PRN IV PN interrupted or unavailable 03/09/20 20:00 04/08/20 19:59 Dextrose (Dextrose 50%) 25 ml Q30M PRN IV Hypoglycemia 03/10/20 00:00 06/08/20 00:00 Dextrose (Dextrose 50%) 50 ml Q30M PRN IV Hypoglycemia 03/10/20 00:00 06/08/20 00:00 Enoxaparin Sodium (Lovenox) 40 mg DAILY SUBQ 03/13/20 12:00 06/11/20 11:59 03/24/20 08:56 Fat Emulsion Intravenous 192 ml/Amino Acids/ Electrolytes/ Dextrose 1,992 ml @ 83 mls/hr Q24H IV 03/17/20 20:00 04/16/20 19:59 03/23/20 20:43 Furosemide (Lasix) 20 mg EVERY 8 HOURS IV 03/19/20 14:00 04/18/20 13:59 03/24/20 05:16 Hydralazine HCl (Apresoline) 10 mg Q6H PRN IV For High Blood Pressure 03/09/20 17:00 06/07/20 16:59 03/21/20 17:19 Insulin Aspart (NovoLOG) Q6HR SUBQ 03/10/20 00:00 06/08/20 00:00 03/24/20 12:08 Insulin Detemir (Levemir) 18 units Q12HR SUBQ 03/14/20 21:00 06/10/20 20:59 03/24/20 12:07 Lactulose (Cephulac) 20 gm THREE TIMES A DAY ORAL 03/08/20 13:00 04/07/20 12:59 03/23/20 08:36 Methylprednisolone Sodium Succinate (Solu-MEDROL) 40 mg EVERY 8 HOURS IVP 03/22/20 14:00 06/20/20 13:59 03/24/20 05:16 Pantoprazole (Protonix) 40 mg EVERY 12 HOURS IVP 03/12/20 21:00 04/11/20 20:59 03/24/20 08:53 Polyethylene Glycol (Miralax) 17 gm BEDTIME ORAL 03/08/20 21:00 04/07/20 20:59 03/23/20 20:44 Trimethoprim/ Sulfamethoxazole 20 ml/Dextrose 570 ml @ 380 mls/hr [id number] BACTRIM IV 03/19/20 16:00 03/26/20 16:00 03/24/20 08:53 Vitamin D (Vitamin D) 5,000 unit DAILY ORAL 03/15/20 09:00 04/14/20 08:59 03/23/20 08:36 Laboratory Tests 03/23/20 17:21: POC Whole Blood Glucose [Pending] 03/23/20 20:49: POC Whole Blood Glucose 220H 03/23/20 23:57: POC Whole Blood Glucose [Pending] 03/24/20 04:38: White Blood Count 11.7H, Red Blood Count 4.61L, Hemoglobin 12.8L, Hematocrit 40.1L, Mean Corpuscular Volume 87, Mean Corpuscular Hemoglobin 27.9, Mean Corpuscular Hemoglobin Concent 32.0, Red Cell Distribution Width 14.2, Platelet Count 268, Mean Platelet Volume 6.8, Neutrophils (%) (Auto) , Lymphocytes (%) (Auto) , Monocytes (%) (Auto) , Eosinophils (%) (Auto) , Basophils (%) (Auto) , Differential Total Cells Counted 100, Neutrophils % (Manual) 90H, Lymphocytes % (Manual) 4L, Monocytes % (Manual) 6, Eosinophils % (Manual) 0, Basophils % (Manual) 0, Band Neutrophils 0, Platelet Estimate Adequate, Platelet Morphology Normal, Anisocytosis 1+, Sodium Level 134L, Potassium Level 4.1, Chloride Level 96L, Carbon Dioxide Level 33H, Anion Gap 5, Blood Urea Nitrogen 31H, Creatinine 0.7, Estimat Glomerular Filtration Rate > 60, Glucose Level 191H, Uric Acid 1.8L , Calcium Level 8.6, Phosphorus Level 3.4, Magnesium Level 1.9, Total Bilirubin 0.6, Aspartate Amino Transf (AST/SGOT) 80H, Alanine Aminotransferase (ALT/SGPT) 299H, Alkaline Phosphatase 195H, C-Reactive Protein, Quantitative < 0.4, Pro-B-Type Natriuretic Peptide 256H, Total Protein 5.6L, Albumin 2.1L, Globulin 3.5, Albumin/Globulin Ratio 0.6L, Triglycerides Level 173H, Cholesterol Level 196, LDL Cholesterol 120H, HDL Cholesterol 38L, Cholesterol/HDL Ratio 5.2H 03/24/20 05:18: POC Whole Blood Glucose [Pending] Height (Feet): 5 Height (Inches): 10.00 Weight (Pounds): 240 General Appearance: no apparent distress Cardiovascular: normal rate Respiratory/Chest: decreased breath sounds Abdomen: distended Rubin Cooper MD Mar 24, 2020 13:44
[2020-03-24] MEDS ORDERED: NaCl 3% 500ml 500 ML IV ONE (15:00)
[2020-03-24 16:00] VITALS: BP 145/76
--- NOTE | 2020-03-24 16:31 | NUR ---
NURSE NOTES: Re IV meds; please note 3%NS stopped while antibiotics given.
[2020-03-24] MEDS: cefTRIAXone 1 GM in D5W 50 ML IVPB SCH (18:16)
--- NOTE | 2020-03-24 18:37 | NUR ---
NURSE HAND-OFF REPORT: Important Events on Shift:[did oral care multiple times with RT at bedside, dark blood clots with dry oral secretions removed. No other changes] Patient Status: [Full code] Diet: [TPN] Pending Orders: [] Pending Results/Labs:[] Pending MD notification:[] Latest Vital Signs: Temperature 97.7 , Pulse 93 , B/P 145 /76 , Respiratory Rate 20 , O2 SAT 94 , Room Air, O2 Flow Rate 95.0 . Vital Sign Comment: [] EKG Rhythm: Sinus Rhythm Rhythm change?: N MD Notified?: Courtney Paige MD Response: Message left await call Latest Hassan Fall Score: 45 Fall Risk: High Risk Safety Measures: Call light Within Reach, Bed Alarm Zone 1, Side Rails Side Rails x3, Bed position Low and Locked. Fall Precautions: Yellow Socks Yellow Gown Door Sign Patient Fall Education Report given to [Pending RN assignment]. Addendum: 03/24/20 at 1942 by Franchesca Laws RN Report given to Wander MATHEW.
--- NOTE | 2020-03-24 19:10 | NUR ---
NURSE NOTES: Received report from PRIYANKA Sorensen. Pt in bed, A/O x4 , able to make needs known. In no apparent cardiac and respiratory distress noted. On monitoring manager showing SR with 81 hr.On BiPAP 20/10, FiO2 95% saturating @93%. With PICC line double lumen running Intralipids in TPN @83ml/hr, no infiltration noted. With condom cath draining light jeff color urine via gravity. Safety measures in place, bed is in the lowest position with side rails x2 and locked. Call light and bedside table is within reach. Will continue plan of care.
[2020-03-24 20:00] VITALS: BP 147/89
[2020-03-24] MEDS: Dyna-Hex 2% Top Sol 2oz TOPIC SCH (20:37)
[2020-03-24] MEDS: Miralax 17gm pkt ORAL SCH (20:38)
[2020-03-24] MEDS: FAT EMULSION 20% IV SCH (20:39)
[2020-03-24] MEDS: TPN IV SCH (20:39)
--- NOTE | 2020-03-24 22:31 | NUR ---
NURSE NOTES: Rounds done, pt in bed awake, in no apparent cardiac and respiratory distress noted. Offered to do oral care but pt refused at the moment and requested to do it around 0100 am. Agreed to it and will come back later.
[2020-03-25] VITALS (7 sets, daily range): BP systolic 127–159; BP diastolic 82–100
[2020-03-25] MEDS: Trimethoprim/Sulfamethoxazole 20 ML in D5W 500ml 550 ML IV SCH ×4 (00:02→16:00)
--- NOTE | 2020-03-25 01:23 | NUR ---
NURSE NOTES: Oral care provided with Rt on bedside. Pt tolerated well with the activity but had an episode of desaturation. Requested to do 1 more time before end of shift. Will come back later
[2020-03-25 04:55] LABS: ANION GAP 11 mmol/L (5-15); BLOOD UREA NITROGEN 29 mg/dL (7-18); CALCIUM 8.8 MG/DL (8.5-10.1); CARBON DIOXIDE 28 MMOL/L (21-32); CHLORIDE 96 MMOL/L (98-107); CREATININE 0.7 MG/DL (0.55-1.30); HEMATOCRIT 39.5 % (42.0-52.0); HEMOGLOBIN 12.6 G/DL (14.2-18.0); MEAN CORPUSCULAR VOLUME 88 FL (80-99); PLATELET COUNT 250 K/UL (150-450); POTASSIUM 4.2 MMOL/L (3.5-5.1); RED BLOOD COUNT 4.49 M/UL (4.70-6.10); RED CELL DISTRIBUTION WIDTH 14.5 % (11.6-14.8); SODIUM 135 MMOL/L (136-145)
--- NOTE | 2020-03-25 05:09 | NUR ---
NURSE NOTES: Oral care provided with RT at bedside. Cleaned as much as possible. Bed bath provided but just the front side of his body. Pt refused to turned and repositioned. Preferred to stay supine in semi devine.
[2020-03-25 05:16] LABS: ALANINE AMINOTRANSFERASE 278 U/L (12-78); ALBUMIN 2.1 G/DL (3.4-5.0); ALKALINE PHOSPHATASE 178 U/L (46-116); ASPARTATE AMINO TRANSFERASE 75 U/L (15-37); BILIRUBIN,DIRECT 0.4 MG/DL (0.0-0.3); BILIRUBIN,TOTAL 0.4 MG/DL (0.2-1.0); PHOSPHORUS 3.6 MG/DL (2.5-4.9)
[2020-03-25] MEDS: Solu-MEDROL 40mg Inj IVP SCH ×3 (05:50→21:24)
[2020-03-25] MEDS: NovoLOG Insulin Flexpen SUBQ SCH ×3 (06:00→17:30)
--- NOTE | 2020-03-25 07:20 | NUR ---
NURSE NOTES: Received patient in bed. Awake, A/O x4. On BiPAP, settings on as ordered. PICC in WAYNE, infusing IVf as ordered. Bed low and locked, side rails up x2, call light within reach with return demonstration.
--- NOTE | 2020-03-25 07:22 | NUR ---
NURSE HAND-OFF REPORT: Important Events on Shift: Stable Patient Status: Stable Diet: TPN Pending Orders: Pending Results/Labs: Pending MD notification: Latest Vital Signs: Temperature 97.5 , Pulse 82 , B/P 131 /82 , Respiratory Rate 24 , O2 SAT 97 , Room Air, O2 Flow Rate 95.0 . Vital Sign Comment: Stable EKG Rhythm: Sinus Rhythm Rhythm change?: N MD Notified?: MD Response: Latest Hassan Fall Score: 45 Fall Risk: High Risk Safety Measures: Call light Within Reach, Bed Alarm Zone 1, Side Rails Side Rails x3, Bed position Low and Locked. Fall Precautions: Yellow Socks Yellow Gown Door Sign Patient Fall Education Report given to PRIYANKA Yuan.
[2020-03-25] MEDS: Vitamin D 1000 units Tab ORAL SCH (09:00)
[2020-03-25] MEDS: Lactulose 20gm/30ml UDC ORAL SCH ×3 (09:00→18:00)
[2020-03-25] MEDS: Pantoprazole Inj IVP SCH (09:06)
[2020-03-25] MEDS: Enoxaparin 40mg Inj SUBQ SCH (09:07)
[2020-03-25] MEDS: Levemir Flexpen SUBQ SCH ×2 (09:08→21:51)
--- NOTE | 2020-03-25 09:17 | Pulmonology Progress Note ---
Subjective ROS Limited/Unobtainable: Yes Interval Events: tolerating BiPAP; saturating better Constitutional: Denies: fever HEENT: Repors: no symptoms Respiratory: Reports: dry cough, shortness of breath Cardiovascular: Reports: no symptoms Gastrointestinal/Abdominal: Denies: nausea, vomiting, diarrhea Psychiatric: Denies: depression Skin: Denies: rash Musculoskeletal: Denies: pain Allergies: Coded Allergies: No Known Allergies (Unverified , 02/05/20) Objective Last 24 Hour Vital Signs Date Time Temp Pulse Resp B/P (MAP) Pulse Ox O2 Delivery O2 Flow Rate FiO2 03/25/20 07:15 67 16 96 100 03/25/20 04:00 Bi-pap 95.0 03/25/20 04:00 95 03/25/20 04:00 97.5 82 24 131/82 (98) 97 03/25/20 03:39 79 03/25/20 03:00 99 15 98 100 03/25/20 00:00 Bi-pap 95.0 03/25/20 00:00 95 03/25/20 00:00 97.5 81 19 128/86 (100) 95 03/24/20 23:52 85 03/24/20 23:15 86 24 100 100 03/24/20 20:00 Bi-pap 95.0 03/24/20 20:00 97.7 84 21 147/89 (108) 94 03/24/20 20:00 95 03/24/20 19:35 85 03/24/20 19:10 79 25 97 100 03/24/20 16:00 Bi-pap 95.0 03/24/20 16:00 95 03/24/20 16:00 97.7 81 20 145/76 (99) 94 03/24/20 16:00 93 03/24/20 15:28 81 21 96 100 03/24/20 12:00 95 03/24/20 12:00 Bi-pap 95.0 03/24/20 12:00 97.9 82 19 139/90 (106) 95 03/24/20 11:32 82 03/24/20 11:09 85 26 94 100 Intake and Output 03/24/20 03/25/20 19:00 07:00 Intake Total 1109 ml 1336 ml Output Total 1300 ml 1200 ml Balance -191 ml 136 ml IV Total 1109 ml 1336 ml Output Urine Total 1300 ml 1200 ml General Appearance: WD/WN, no acute distress HEENT: normocephalic, atraumatic Respiratory: chest wall non-tender Cardiovascular: normal rate, regular rhythm Abdomen: normal bowel sounds, soft, non tender, other - obese Laboratory Tests 03/24/20 20:51: POC Whole Blood Glucose 176H 03/24/20 23:55: POC Whole Blood Glucose 135H 03/25/20 03:55: White Blood Count 11.0H, Red Blood Count 4.49L, Hemoglobin 12.6L, Hematocrit 39.5L, Mean Corpuscular Volume 88, Mean Corpuscular Hemoglobin 28.1, Mean Corpu scular Hemoglobin Concent 32.0, Red Cell Distribution Width 14.5, Platelet Count 250, Mean Platelet Volume 6.4L, Neutrophils (%) (Auto) , Lymphocytes (%) (Auto) , Monocytes (%) (Auto) , Eosinophils (%) (Auto) , Basophils (%) (Auto) , D ifferential Total Cells Counted 100, Neutrophils % (Manual) 91H, Lymphocytes % (Manual) 6L, Monocytes % (Manual) 3, Eosinophils % (Manual) 0, Basophils % (Manual) 0, Band Neutrophils 0, Platelet Estimate Adequate, Platelet Morphology Normal, Anisocytosis 1+, Sodium Level 135L, Potassium Level 4.2, Chloride Level 96L, Carbon Dioxide Level 28, Anion Gap 11, Blood Urea Nitrogen 29H, Creatinine 0.7, Estimat Glomerular Filtration Rate > 60, Glucose Level 168H, Uric Acid 2.0L , Calcium Level 8.8, Phosphorus Level 3.6, Magnesium Level 1.9, Total Bilirubin 0.4, Direct Bilirubin 0.4H, Aspartate Amino Transf (AST/SGOT) 75H, Alanine Aminotransferase (ALT/SGPT) 278H, Alkaline Phosphatase 178H, Total Protein 5.4L, Albumin 2.1L 03/25/20 05:56: POC Whole Blood Glucose 117H Current Medications Medications (Trade) Dose Ordered Sig/Dennis Route PRN Reason Start Time Stop Time Status Last Admin Dose Admin Acetaminophen (Tylenol) 650 mg Q4H PRN ORAL Mild Pain (Pain Scale 1-3) 03/09/20 12:00 04/08/20 11:59 Bisacodyl (Dulcolax) 10 mg HSPRN PRN RECTAL Constipation 02/05/20 13:15 05/05/20 13:14 Bisacodyl (Dulcolax) 10 mg Q12H PRN RECTAL Constipation 03/18/20 16:45 06/16/20 16:44 Ceftriaxone Sodium 1 gm/ Dextrose 50 ml @ 100 mls/hr Q24H IVPB 03/21/20 17:00 03/28/20 15:59 03/24/20 18:16 Chlorhexidine Gluconate (Marlen-Hex 2%) 1 applic DAILY@2000 TOPIC 02/14/20 20:00 05/14/20 19:59 03/24/20 20:37 Clonidine HCl (Catapres TTS-2) 1 patch QWEEK TDERMAL 03/21/20 18:00 06/19/20 17:59 03/21/20 17:22 Dextrose 1,000 ml @ 0 mls/hr Q24H PRN IV PN interrupted or unavailable 03/09/20 20:00 04/08/20 19:59 Dextrose (Dextrose 50%) 25 ml Q30M PRN IV Hypoglycemia 03/10/20 00:00 06/08/20 00:00 Dextrose (Dextrose 50%) 50 ml Q30M PRN IV Hypoglycemia 03/10/20 00:00 06/08/20 00:00 Enoxaparin Sodium (Lovenox) 40 mg DAILY SUBQ 03/13/20 12:00 06/11/20 11:59 03/25/20 09:07 Fat Emulsion Intravenous 192 ml/Amino Acids/ Electrolytes/ Dextrose 1,992 ml @ 83 mls/hr Q24H IV 03/17/20 20:00 04/16/20 19:59 03/24/20 20:39 Furosemide (Lasix) 20 mg EVERY 8 HOURS IV 03/19/20 14:00 04/18/20 13:59 03/25/20 05:50 Hydralazine HCl (Apresoline) 10 mg Q6H PRN IV For High Blood Pressure 03/09/20 17:00 06/07/20 16:59 03/21/20 17:19 Insulin Aspart (NovoLOG) Q6HR SUBQ 03/10/20 00:00 06/08/20 00:00 03/24/20 18:17 Insulin Detemir (Levemir) 18 units Q12HR SUBQ 03/14/20 21:00 06/10/20 20:59 03/25/20 09:08 Lactulose (Cephulac) 20 gm THREE TIMES A DAY ORAL 03/08/20 13:00 04/07/20 12:59 03/23/20 08:36 Methylprednisolone Sodium Succinate (Solu-MEDROL) 40 mg EVERY 8 HOURS IVP 03/22/20 14:00 06/20/20 13:59 03/25/20 05:50 Pantoprazole (Protonix) 40 mg EVERY 12 HOURS IVP 03/12/20 21:00 04/11/20 20:59 03/25/20 09:06 Polyethylene Glycol (Miralax) 17 gm BEDTIME ORAL 03/08/20 21:00 04/07/20 20:59 03/23/20 20:44 Trimethoprim/ Sulfamethoxazole 20 ml/Dextrose 570 ml @ 380 mls/hr [id number] BACTRIM IV 03/19/20 16:00 03/26/20 16:00 03/25/20 09:07 Vitamin D (Vitamin D) 5,000 unit DAILY ORAL 03/15/20 09:00 04/14/20 08:59 03/23/20 08:36 Assessment/Plan Assessment/Plan Assessment/Plan 1.COVID-19 pneumonia. - last COVID-19 test positive after two negative tests - CTA 02/05/2020 ground-glass and consolidating infiltrates in the dependent portions of both lower lobes and to lesser degree the upper lobes consistent with bilateral pneumonia. No evidence of pulmonary embolus. - CXR 02/17/2020 worsening bilateral infiltrates; Repeat CXR shows basilar linear densities - CT chest 02/18 shows Increased extensive patchy ground-glass opacities and densities throughout the lungs, suggestive of Covid 19 infection. - currently on BiPAP. Saturations 90%. - Mycoplasma pneumoniae IgG 273; M. pneumoniae IgM titer within normal limits - D-dimer 0.90; on full dose Lovenox -Discontinued Decadron, now on Solumedrol - s/p remdesivir - is net I/O negative -We will continue TPN He has had a progressive increase in LDH,-started on Bactrim due to concern about pneumocystis. - Looking unchanged today. - CXR 03/17 no significant change - CXR 03/22 no significant change 2. Initial negative rapid COVID-19 gene assay.- however repeat COVID-19 test positive 3. Smoker. 4. DVT ppx - on lovenox 5. Hypertension - on hydralazine, - s/p norvasc 6. Blood culture positive for gram positive cocci staph aureus 02/06 - on Abx - CT abd/pelvis showed no abscess per ID - TTE/ FERNY held off due to COVID-19 status - repeat BCx negative for growth 03/17 7. Leukocytosis; resolved - ID following 8. Gram negative zack UTI - s/p rocephin per ID recs - s/p rocephin, cefepime per ID 9. Elevated LFT - positive Hep C Counseled on importance of oral care Continue BiPAP; failed weaning with NRB; will attempt with lowering FiO2 now on lasix (03/19-) John Mata MD Mar 25, 2020 09:17
--- NOTE | 2020-03-25 10:16 | General Progress Note ---
Subjective ROS Limited/Unobtainable: No Allergies: Coded Allergies: No Known Allergies (Unverified , 02/05/20) Objective Last 24 Hour Vital Signs Date Time Temp Pulse Resp B/P (MAP) Pulse Ox O2 Delivery O2 Flow Rate FiO2 03/25/20 08:00 Bi-pap 95.0 03/25/20 08:00 97.9 84 24 138/92 (107) 94 03/25/20 07:15 67 16 96 100 03/25/20 04:00 Bi-pap 95.0 03/25/20 04:00 95 03/25/20 04:00 97.5 82 24 131/82 (98) 97 03/25/20 03:39 79 03/25/20 03:00 99 15 98 100 03/25/20 00:00 Bi-pap 95.0 03/25/20 00:00 95 03/25/20 00:00 97.5 81 19 128/86 (100) 95 03/24/20 23:52 85 03/24/20 23:15 86 24 100 100 03/24/20 20:00 Bi-pap 95.0 03/24/20 20:00 97.7 84 21 147/89 (108) 94 03/24/20 20:00 95 03/24/20 19:35 85 03/24/20 19:10 79 25 97 100 03/24/20 16:00 Bi-pap 95.0 03/24/20 16:00 95 03/24/20 16:00 97.7 81 20 145/76 (99) 94 03/24/20 16:00 93 03/24/20 15:28 81 21 96 100 03/24/20 12:00 95 03/24/20 12:00 Bi-pap 95.0 03/24/20 12:00 97.9 82 19 139/90 (106) 95 03/24/20 11:32 82 03/24/20 11:09 85 26 94 100 Intake and Output 03/24/20 03/25/20 19:00 07:00 Intake Total 1109 ml 1336 ml Output Total 1300 ml 1200 ml Balance -191 ml 136 ml IV Total 1109 ml 1336 ml Output Urine Total 1300 ml 1200 ml Laboratory Tests 03/24/20 20:51: POC Whole Blood Glucose 176H 03/24/20 23:55: POC Whole Blood Glucose 135H 03/25/20 03:55: White Blood Count 11.0H, Red Blood Count 4.49L, Hemoglobin 12.6L, Hematocrit 39.5L, Mean Corpuscular Volume 88, Mean Corpuscular Hemoglobin 28.1, Mean Corpuscular Hemoglobin Concent 32.0, Red Cell Distribution Width 14.5, Platelet Count 250, Mean Platelet Volume 6.4L, Neutrophils (%) (Auto) , Lymphocytes (%) (Auto) , Monocytes (%) (Auto) , Eosinophils (%) (Auto) , Basophils (%) (Auto) , Differential Total Cells Counted 100, Neutrophils % (Manual) 91H, Lymphocytes % (Manual) 6L, Monocytes % (Manual) 3, Eosinophils % (Manual) 0, Basophils % (Manual) 0, Band Neutrophils 0, Platelet Estimate Adequate, Platelet Morphology Normal, Anisocytosis 1+, Sodium Level 135L, Potassium Level 4.2, Chloride Level 96L, Carbon Dioxide Level 28, Anion Gap 11, Blood Urea Nitrogen 29H, Creatinine 0.7, Estimat Glomerular Filtration Rate > 60, Glucose Level 168H, Uric Acid 2.0L , Calcium Level 8.8, Phosphorus Level 3.6, Magnesium Level 1.9, Total Bilirubin 0.4, Direct Bilirubin 0.4H, Aspartate Amino Transf (AST/SGOT) 75H, Alanine Aminotransferase (ALT/SGPT) 278H, Alkaline Phosphatase 178H, Total Protein 5.4L, Albumin 2.1L 03/25/20 05:56: POC Whole Blood Glucose 117H Height (Feet): 5 Height (Inches): 10.00 Weight (Pounds): 240 General Appearance: no apparent distress EENT: normal ENT inspection Neck: normal alignment Cardiovascular: normal rate Respiratory/Chest: decreased breath sounds Abdomen: hypoactive bowel sounds Extremities: non-tender Assessment/Plan Status: stable, progressing Assessment/Plan: covid + on BIPAP DM HTN FTT constipation not stable for PEG could not tolerate NGT placement TPN for now bowel regimen covid care rising LFTS>>> will monitor>> most likely due to TPN will fu hep c + but neg RNA Da Quintero MD Mar 25, 2020 10:16
--- NOTE | 2020-03-25 15:06 | NUR ---
NURSE NOTES: PICC line dressing change done.
--- NOTE | 2020-03-25 15:40 | Nephrology Progress Note ---
Assessment/Plan Problem List: (1) Dehydration (2) Electrolyte imbalance (3) COVID-19 virus infection (4) Pneumonia (5) DMII (diabetes mellitus, type 2) (6) Protein malnutrition Assessment Azotemia, hypernatremia Hypoalbuminemia Staff Otilia bacteremia COVID-19 isolation, pneumonia, bilateral infiltrate Hypertension Diabetes mellitus History of smoking Plan March 25: Remains on TPN. Labs reviewed. Discussed with pharmacy. Change IV Protonix to p.o. Continue 3% saline infusion with Lasix. Patient full code. March 24: Continue to be on TPN. Labs are reviewed. Aim to collect electrolytes. Discussed with pharmacy. Continue current consultants. March 23: Continues to be on TPN. Labs reviewed. Electrolytes and chemistries all acceptable. Discussed with pharmacy. Continue current management. March 22: On TPN. Labs reviewed. Low sodium noted. 3% saline to be continued. Continue to monitor electrolytes. Discussed with pharmacy. March 21: On TPN. Labs reviewed. Continue 3% saline and Lasix for mild hyponatremia. Continue TPN as these. Discussed with pharmacy. March 20: Remains on TPN. Labs reviewed. Serum sodium higher on IV Lasix and 3% saline infusion. Continue TPN as is. Continue to monitor renal parameters and electrolytes. Discussed with Dr. Mata March 19: Remains on TPN. Labs reviewed. Serum sodium 128. Will give 3% saline with IV Lasix. Continue to monitor electrolytes. No change in TPN compo sition. Discussed with pharmacy. March 18: Remains on TPN. Labs reviewed. Discussed with pharmacist. Will give 3 doses of IV Lasix 20 mg every 8 hours. Continue to monitor serum sodium electrolytes uric acid. White blood cells down. Continue per consultants. March 17: On TPN. Labs reviewed. Discussed with pharmacist. Sodium content increase. Continue to monitor CMP. Patient continues to have leukocytosis. March 16: On TPN. Labs reviewed. Discussed with pharmacist. Appropriate changes made. Continue to monitor electrolytes. March 15: Remains on TPN. Labs reviewed. Discussed with pharmacist. Continue per current management. March 14: Remains on TPN. Labs reviewed, stable. Vitamin D level low, replacement ordered. Continue to monitor electrolytes and renal parameters. March 13: Patient remains on TPN. Discussed with pharmacist. TPN's sodium content adjusted. Labs reviewed. Continue to monitor electrolytes. Blood pressure remains stable. Continue per consultants. March 12: Patient on TPN. Labs reviewed. CPK remains elevated. Abnormal electrolytes and high blood sugar discussed with pharmacist and TPN adjusted. Continue to monitor labs. Oral Protonix added. Ibuprofen discontinued. Can continue to monitor electrolytes and chemistries. Levemir for high blood sugar added. March 11: Patient on TPN. Labs as of 11:15 AM is still pending. Continue per current treatment plan. Will check labs and adjust TPN as needed. Continue per consultants. March 10: Patient on TPN. Labs reviewed. Electrolytes overall stable. CPK is elevated. Will monitor electrolyte, CPK level, lipid panel. Continue per consultants. Discussed with pharmacist. Discussed with RN. Nutritional evaluation noted. Previously: D5W 100 cc an hour Monitor electrolytes renal parameters TPN and Intralipid ordered Will follow Continue per consultants Dietary consult requested Subjective ROS Limited/Unobtainable: Yes Objective Objective Last 24 Hour Vital Signs Date Time Temp Pulse Resp B/P (MAP) Pulse Ox O2 Delivery O2 Flow Rate FiO2 03/25/20 12:00 Bi-pap 95.0 03/25/20 12:00 98.4 82 20 144/84 (104) 93 03/25/20 12:00 95 03/25/20 12:00 80 03/25/20 08:00 69 03/25/20 08:00 Bi-pap 95.0 03/25/20 08:00 95 03/25/20 08:00 97.9 84 24 138/92 (107) 94 03/25/20 07:15 67 16 96 100 03/25/20 04:00 Bi-pap 95.0 03/25/20 04:00 95 03/25/20 04:00 97.5 82 24 131/82 (98) 97 03/25/20 03:39 79 03/25/20 03:00 99 15 98 100 03/25/20 00:00 Bi-pap 95.0 03/25/20 00:00 95 03/25/20 00:00 97.5 81 19 128/86 (100) 95 03/24/20 23:52 85 03/24/20 23:15 86 24 100 100 03/24/20 20:00 Bi-pap 95.0 03/24/20 20:00 97.7 84 21 147/89 (108) 94 03/24/20 20:00 95 03/24/20 19:35 85 03/24/20 19:10 79 25 97 100 03/24/20 16:00 Bi-pap 95.0 03/24/20 16:00 95 03/24/20 16:00 97.7 81 20 145/76 (99) 94 03/24/20 16:00 93 Intake and Output 03/24/20 03/25/20 19:00 07:00 Intake Total 1109 ml 1419 ml Output Total 1300 ml 1200 ml Balance -191 ml 219 ml IV Total 1109 ml 1419 ml Output Urine Total 1300 ml 1200 ml Current Medications Medications (Trade) Dose Ordered Sig/Dennis Route PRN Reason Start Time Stop Time Status Last Admin Dose Admin Acetaminophen (Tylenol) 650 mg Q4H PRN ORAL Mild Pain (Pain Scale 1-3) 03/09/20 12:00 04/08/20 11:59 Bisacodyl (Dulcolax) 10 mg HSPRN PRN RECTAL Constipation 02/05/20 13:15 05/05/20 13:14 Bisacodyl (Dulcolax) 10 mg Q12H PRN RECTAL Constipation 03/18/20 16:45 06/16/20 16:44 Ceftriaxone Sodium 1 gm/ Dextrose 50 ml @ 100 mls/hr Q24H IVPB 03/21/20 17:00 03/28/20 15:59 03/24/20 18:16 Chlorhexidine Gluconate (Marlen-Hex 2%) 1 applic DAILY@2000 TOPIC 02/14/20 20:00 05/14/20 19:59 03/24/20 20:37 Clonidine HCl (Catapres TTS-2) 1 patch QWEEK TDERMAL 03/21/20 18:00 06/19/20 17:59 03/21/20 17:22 Dextrose 1,000 ml @ 0 mls/hr Q24H PRN IV PN interrupted or unavailable 03/09/20 20:00 04/08/20 19:59 Dextrose (Dextrose 50%) 25 ml Q30M PRN IV Hypoglycemia 03/10/20 00:00 06/08/20 00:00 Dextrose (Dextrose 50%) 50 ml Q30M PRN IV Hypoglycemia 03/10/20 00:00 06/08/20 00:00 Enoxaparin Sodium (Lovenox) 40 mg DAILY SUBQ 03/13/20 12:00 06/11/20 11:59 03/25/20 09:07 Fat Emulsion Intravenous 192 ml/Amino Acids/ Electrolytes/ Dextrose 1,992 ml @ 83 mls/hr Q24H IV 03/17/20 20:00 04/16/20 19:59 03/24/20 20:39 Furosemide (Lasix) 20 mg EVERY 8 HOURS IV 03/19/20 14:00 04/18/20 13:59 03/25/20 14:45 Hydralazine HCl (Apresoline) 10 mg Q6H PRN IV For High Blood Pressure 03/09/20 17:00 06/07/20 16:59 03/21/20 17:19 Insulin Aspart (NovoLOG) Q6HR SUBQ 03/10/20 00:00 06/08/20 00:00 03/25/20 11:14 Insulin Detemir (Levemir) 18 units Q12HR SUBQ 03/14/20 21:00 06/10/20 20:59 03/25/20 09:08 Lactulose (Cephulac) 20 gm THREE TIMES A DAY ORAL 03/08/20 13:00 04/07/20 12:59 03/23/20 08:36 Methylprednisolone Sodium Succinate (Solu-MEDROL) 40 mg EVERY 8 HOURS IVP 03/22/20 14:00 06/20/20 13:59 03/25/20 14:45 Pantoprazole (Protonix) 40 mg EVERY 12 HOURS IVP 03/12/20 21:00 04/11/20 20:59 03/25/20 09:06 Polyethylene Glycol (Miralax) 17 gm BEDTIME ORAL 03/08/20 21:00 04/07/20 20:59 03/23/20 20:44 Trimethoprim/ Sulfamethoxazole 20 ml/Dextrose 570 ml @ 380 mls/hr [id number] BACTRIM IV 03/19/20 16:00 03/26/20 16:00 03/25/20 09:07 Vitamin D (Vitamin D) 5,000 unit DAILY ORAL 03/15/20 09:00 04/14/20 08:59 03/23/20 08:36 Laboratory Tests 03/24/20 20:51: POC Whole Blood Glucose 176H 03/24/20 23:55: POC Whole Blood Glucose 135H 03/25/20 03:55: White Blood Count 11.0H, Red Blood Count 4.49L, Hemoglobin 12.6L, Hematocrit 39.5L, Mean Corpuscular Volume 88, Mean Corpuscular Hemoglobin 28.1, Mean Corpuscular Hemoglobin Concent 32.0, Red Cell Distribution Width 14.5, Platelet Count 250, Mean Platelet Volume 6.4L, Neutrophils (%) (Auto) , Lymphocytes (%) (Auto) , Monocytes (%) (Auto) , Eosinophils (%) (Auto) , Basophils (%) (Auto) , Differential Total Cells Counted 100, Neutrophils % (Manual) 91H, Lymphocytes % (Manual) 6L, Monocytes % (Manual) 3, Eosinophils % (Manual) 0, Basophils % (Manu al) 0, Band Neutrophils 0, Platelet Estimate Adequate, Platelet Morphology Normal, Anisocytosis 1+, Sodium Level 135L, Potassium Level 4.2, Chloride Level 96L, Carbon Dioxide Level 28, Anion Gap 11, Blood Urea Nitrogen 29H, Creatinine 0.7, Estimat Glomerular Filtration Rate > 60, Glucose Level 168H, Uric Acid 2.0L , Calcium Level 8.8, Phosphorus Level 3.6, Magnesium Level 1.9, Total Bilirubin 0.4, Direct Bilirubin 0.4H, Aspartate Amino Transf (AST/SGOT) 75H, Alanine Aminotransferase (ALT/SGPT) 278H, Alkaline Phosphatase 178H, Total Protein 5.4L, Albumin 2.1L 03/25/20 05:56: POC Whole Blood Glucose 117H Height (Feet): 5 Height (Inches): 10.00 Weight (Pounds): 240 General Appearance: no apparent distress EENT: other - On BiPAP Cardiovascular: normal rate Respiratory/Chest: decreased breath sounds Abdomen: distended Rubin Cooper MD Mar 25, 2020 15:40
--- NOTE | 2020-03-25 15:45 | Infectious Diseases Prog Note ---
Assessment/Plan Assessment/Plan ASSESSMENT AND PLAN: 1. staph aureus bacteremia/mssa, ? source, ? endocarditis, sepsis, leukocytosis, ? CAP, PJP less likely with HIV negative and steroids < 1 month covid-19 +, hypoxia, sob, chest x-ray worse, ? PE, ? HCAP/aspiration pna recurrent fevers - ? fungal, ? OI leukocytosis noted - ? new infection, ? steroids cocci serology negative, legionella negative, beta 1,3 D-glucan wnl, Il-16 - 13.7 elevated LFT's - ? TPN, ? Bactrim - US without gallbladder disease, + steatosis - d/w GI - TPN more likely than bactrim as etiology e.coli uti - bactrim for empiric pneumocystis pna treatment -day # 17/21 - s/p tx for mssa bacteremia and ? endocarditis - ceftriaxone for e.coli uti tx - day # 7/7 antibiotics - saturations improved, on solumedrol - monitor hypoxia, labs and chest x-ray - CT imaging noted - leukocytosis better - TPN - d/w Dr. Mata 2. covid-19 isolation 3. Hypertension history. Blood pressure treatment primary care team. 4. Elevated blood sugars. Blood sugar treatment per primary care team. 5. No known drug allergies. 6. Social history is positive for smoking. 7. Family history is noncontributory. 8. MAR was noted. 9. Case was discussed with RN. 10. Continue treatment per primary consultants. Subjective Constitutional: Reports: fatigue, other - respiratory stable on bipap; Denies: fever HEENT: Reports: congestion Respiratory: Reports: shortness of breath Cardiovascular: Denies: chest pain Gastrointestinal/Abdominal: Denies: nausea, vomiting, diarrhea Genitourinary: Reports: other - no joseph Neurologic: Denies: headache Psychiatric: Reports: other - NA Skin: Denies: rash Hematologic: Denies: bleeding Musculoskeletal: Denies: pain Allergies: Coded Allergies: No Known Allergies (Unverified , 02/05/20) Objective Last 24 Hour Vital Signs Date Time Temp Pulse Resp B/P (MAP) Pulse Ox O2 Delivery O2 Flow Rate FiO2 03/25/20 12:00 Bi-pap 95.0 03/25/20 12:00 98.4 82 20 144/84 (104) 93 03/25/20 12:00 95 1/23/21 12:00 80 03/25/20 08:00 69 03/25/20 08:00 Bi-pap 95.0 03/25/20 08:00 95 03/25/20 08:00 97.9 84 24 138/92 (107) 94 03/25/20 07:15 67 16 96 100 03/25/20 04:00 Bi-pap 95.0 03/25/20 04:00 95 03/25/20 04:00 97.5 82 24 131/82 (98) 97 03/25/20 03:39 79 03/25/20 03:00 99 15 98 100 03/25/20 00:00 Bi-pap 95.0 03/25/20 00:00 95 03/25/20 00:00 97.5 81 19 128/86 (100) 95 03/24/20 23:52 85 03/24/20 23:15 86 24 100 100 03/24/20 20:00 Bi-pap 95.0 03/24/20 20:00 97.7 84 21 147/89 (108) 94 03/24/20 20:00 95 03/24/20 19:35 85 03/24/20 19:10 79 25 97 100 03/24/20 16:00 Bi-pap 95.0 03/24/20 16:00 95 03/24/20 16:00 97.7 81 20 145/76 (99) 94 03/24/20 16:00 93 Height (Feet): 5 Height (Inches): 10.00 Weight (Pounds): 240 General Appearance: no acute distress HEENT: normocephalic, atraumatic, anicteric Respiratory/Chest: crackles/rales, rhonchi - bilaterally Cardiovascular: normal rate, regular rhythm, no gallop/murmur Abdomen: normal bowel sounds, soft, non tender, no organomegaly, non distended Genitourinary: other - no joseph Extremities: no cyanosis Skin: no rash 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 The infiltrates are typical for Covid 19. No evidence of pulmonary embolus. CT abdomen and pelvis: IMPRESSION: 1. Scattered hepatic hypodense lesions, too small to characterize on this examination without intravenous contrast. 2. Colonic diverticulosis without evidence of acute diverticulitis. 3. Scattered enlarged mesenteric lymph nodes, presumably reactive. teral pneumonia. The infiltrates are typical for Covid 19. No evidence of pulmonary embolus. Chest x-ray - 12/19/19 - Indication: Shortness of breath Technique: One view of the chest Comparison: 02/17/2020 Findings: Interim worsening of bilateral infiltrates, particularly on the right. The heart is borderline enlarged. The pleural spaces are clear. Left arm PICC is again demonstrated Impression: Worsening bilateral infiltrates over one day, likely pneumonia CT chest - 02/19/20 - IMPRESSION: Increased extensive patchy ground-glass opacities and densities throughout the lungs, suggestive of Covid 19 infection. Chest x-ray 02/23/20 - Procedure: XRAY Chest 1v As Indication: Reason For Exam: INFECT Technique: One view of the chest Comparison: 02/20/2020 Findings: Allowing for differences in exposure technique, bilateral mid and lower lung infiltrates are probably unchanged. The heart size is normal. The pleural spaces are clear. Impression: Unchanged, over 4 days, findings as above. Chest x-ray - 02/25/20 - FINDINGS: Lungs: Interval slightly worsening bilateral airspace disease. Pleural space: Unremarkable. No pneumothorax. Heart: Unremarkable. No cardiomegaly. Mediastinum: Unremarkable. Bones/joints: Unremarkable. IMPRESSION: Interval slightly worsening bilateral airspace disease. Chest x-ray - 03/02/20 - Procedure: XRAY Chest 1v Indication: Shortness of breath Technique: One view of the chest Comparison: 02/25/2020 Findings: Bilateral interstitial and airspace infiltrates are unchanged. The heart size is normal. Left arm PICC is again demonstrated Impression: Unchanged, over one day, findings as above. Chest x-ray - 03/06/20 - Procedure: XRAY Chest 1v Indication: Shortness of breath Technique: One view of the chest Comparison: 03/02/2020 Findings: Bilateral infiltrates are unchanged. Normal heart size. Pleural spaces are clear Chest x-ray - 03/12/10 - Impression: COMPARISON: Chest radiograph March 06, 2020. FINDINGS/IMPRESSION: Improving basilar infiltrates. Follow chest radiograph recommended. The upper lung finley are clear. No pneumothorax. Stable cardiomegaly. Stable left upper extremity PICC line. anged, over 4 days, findings as above. Chest x-ray - 03/17/20 - Procedure: XRAY Chest 1v Indication: Shortness of breath Technique: One view of the chest Comparison: 03/12/2020 Findings: Left arm PICC is again demonstrated. Infiltrates are unchanged. The heart size is upper limits of normal. Impression: Unchanged, over 5 days, findings as above. Abdominal US - IMPRESSION: 1. Gallbladder is normal. 2. Hepatic steatosis. 3. 1.7 cm cyst right kidney. Impression. Chest x-ray - Procedure: XRAY Chest 1v Indication: Shortness of breath Technique: One view of the chest Comparison: 03/17/2020 Findings: Bilateral right greater than left infiltrates again demonstrated. The heart size is normal. There is a left arm PICC in good position. Impression: Unchanged, over 5 days, findings as above. Microbiology Date/Time Source Procedure Growth Status 03/18/20 06:15 Urine,Clean Catch Urine Culture - Final Escherichia Coli Complete 03/17/20 18:35 Blood Blood Culture - Final NO GROWTH AFTER 5 DAYS Complete 02/10/20 06:30 Nasopharynx SARS-CoV-2 RdRp Gene Assay - Final Complete Laboratory Tests Test 03/24/20 20:51 03/24/20 23:55 03/25/20 03:55 03/25/20 05:56 POC Whole Blood Glucose 176 MG/DL (74-106) H 135 MG/DL (74-106) H 117 MG/DL (74-106) H White Blood Count 11.0 K/UL (4.8-10.8) H Red Blood Count 4.49 M/UL (4.70-6.10) L Hemoglobin 12.6 G/DL (14.2-18.0) L Hematocrit 39.5 % (42.0-52.0) L Mean Corpuscular Volume 88 FL (80-99) Mean Corpuscular Hemoglobin 28.1 PG (27.0-31.0) Mean Corpuscular Hemoglobin Concent 32.0 G/DL (32.0-36.0) Red Cell Distribution Width 14.5 % (11.6-14.8) Platelet Count 250 K/UL (150-450) Mean Platelet Volume 6.4 FL (6.5-10.1) L Neutrophils (%) (Auto) % (45.0-75.0) Lymphocytes (%) (Auto) % (20.0-45.0) Monocytes (%) (Auto) % (1.0-10.0) Eosinophils (%) (Auto) % (0.0-3.0) Basophils (%) (Auto) % (0.0-2.0) Differential Total Cells Counted 100 Neutrophils % (Manual) 91 % (45-75) H Lymphocytes % (Manual) 6 % (20-45) L Monocytes % (Manual) 3 % (1-10) Eosinophils % (Manual) 0 % (0-3) Basophils % (Manual) 0 % (0-2) Band Neutrophils 0 % (0-8) Platelet Estimate Adequate Platelet Morphology Normal Anisocytosis 1+ Sodium Level 135 MMOL/L (136-145) L Potassium Level 4.2 MMOL/L (3.5-5.1) Chloride Level 96 MMOL/L (98-107) L Carbon Dioxide Level 28 MMOL/L (21-32) Anion Gap 11 mmol/L (5-15) Blood Urea Nitrogen 29 mg/dL (7-18) H Creatinine 0.7 MG/DL (0.55-1.30) Estimat Glomerular Filtration Rate > 60 mL/min (>60) Glucose Level 168 MG/DL (74-106) H Uric Acid 2.0 MG/DL (2.6-7.2) L Calcium Level 8.8 MG/DL (8.5-10.1) Phosphorus Level 3.6 MG/DL (2.5-4.9) Magnesium Level 1.9 MG/DL (1.8-2.4) Total Bilirubin 0.4 MG/DL (0.2-1.0) Direct Bilirubin 0.4 MG/DL (0.0-0.3) H Aspartate Amino Transf (AST/SGOT) 75 U/L (15-37) H Alanine Aminotransferase (ALT/SGPT) 278 U/L (12-78) H Alkaline Phosphatase 178 U/L (46-116) H Total Protein 5.4 G/DL (6.4-8.2) L Albumin 2.1 G/DL (3.4-5.0) L Current Medications Medications (Trade) Dose Ordered Sig/Dennis Route PRN Reason Start Time Stop Time Status Last Admin Dose Admin Acetaminophen (Tylenol) 650 mg Q4H PRN ORAL Mild Pain (Pain Scale 1-3) 03/09/20 12:00 04/08/20 11:59 Bisacodyl (Dulcolax) 10 mg HSPRN PRN RECTAL Constipation 02/05/20 13:15 05/05/20 13:14 Bisacodyl (Dulcolax) 10 mg Q12H PRN RECTAL Constipation 03/18/20 16:45 06/16/20 16:44 Ceftriaxone Sodium 1 gm/ Dextrose 50 ml @ 100 mls/hr Q24H IVPB 03/21/20 17:00 03/28/20 15:59 03/24/20 18:16 Chlorhexidine Gluconate (Marlen-Hex 2%) 1 applic DAILY@2000 TOPIC 02/14/20 20:00 05/14/20 19:59 03/24/20 20:37 Clonidine HCl (Catapres TTS-2) 1 patch QWEEK TDERMAL 03/21/20 18:00 06/19/20 17:59 03/21/20 17:22 Dextrose 1,000 ml @ 0 mls/hr Q24H PRN IV PN interrupted or unavailable 03/09/20 20:00 04/08/20 19:59 Dextrose (Dextrose 50%) 25 ml Q30M PRN IV Hypoglycemia 03/10/20 00:00 06/08/20 00:00 Dextrose (Dextrose 50%) 50 ml Q30M PRN IV Hypoglycemia 03/10/20 00:00 06/08/20 00:00 Enoxaparin Sodium (Lovenox) 40 mg DAILY SUBQ 03/13/20 12:00 06/11/20 11:59 03/25/20 09:07 Fat Emulsion Intravenous 192 ml/Amino Acids/ Electrolytes/ Dextrose 1,992 ml @ 83 mls/hr Q24H IV 03/17/20 20:00 04/16/20 19:59 03/24/20 20:39 Furosemide (Lasix) 20 mg EVERY 8 HOURS IV 03/19/20 14:00 04/18/20 13:59 03/25/20 14:45 Hydralazine HCl (Apresoline) 10 mg Q6H PRN IV For High Blood Pressure 03/09/20 17:00 06/07/20 16:59 03/21/20 17:19 Insulin Aspart (NovoLOG) Q6HR SUBQ 03/10/20 00:00 06/08/20 00:00 03/25/20 11:14 Insulin Detemir (Levemir) 18 units Q12HR SUBQ 03/14/20 21:00 06/10/20 20:59 03/25/20 09:08 Lactulose (Cephulac) 20 gm THREE TIMES A DAY ORAL 03/08/20 13:00 04/07/20 12:59 03/23/20 08:36 Methylprednisolone Sodium Succinate (Solu-MEDROL) 40 mg EVERY 8 HOURS IVP 03/22/20 14:00 06/20/20 13:59 03/25/20 14:45 Pantoprazole (Protonix) 40 mg EVERY 12 HOURS ORAL 03/25/20 21:00 04/24/20 20:59 Polyethylene Glycol (Miralax) 17 gm BEDTIME ORAL 03/08/20 21:00 04/07/20 20:59 03/23/20 20:44 Sodium Chloride 500 ml @ 30 mls/hr ONCE ONCE IV 03/25/20 17:00 03/26/20 09:39 Trimethoprim/ Sulfamethoxazole 20 ml/Dextrose 570 ml @ 380 mls/hr [id number] BACTRIM IV 03/19/20 16:00 03/26/20 16:00 03/25/20 15:41 Vitamin D (Vitamin D) 5,000 unit DAILY ORAL 03/15/20 09:00 04/14/20 08:59 03/23/20 08:36 Kisha Salazar MD Mar 25, 2020 15:45
[2020-03-25] MEDS ORDERED: Tubing IV Secondary IV ONE (15:59)
[2020-03-25] MEDS ORDERED: NS 275ml ONE ×2 (15:59)
--- NOTE | 2020-03-25 16:17 | NUR ---
CASE MANAGEMENT:REVIEW 03/25/20 SI: COVID PNA. UTI 98.4 82 20 144/84 93% ON BIPAP W/95% FIO2 WBC+11.0 H/H-12.6/39.5 AST/ALT+75/278 IS: TPN/IL @ 83/HR IV SOLUMEDROL Q8HRS IV ROCEPHIN Q24 IV BACTRIM Q8HRS IV LASIX Q8HR LOVENOX SQ QD : STEP DOWN UNIT DCP: PATIENT WAS LIVING IN A HOTEL
--- NOTE | 2020-03-25 16:56 | NUR ---
NURSE NOTES: Patient refusing to be changed. RN offered x3, DISH CLOTH INSPECTOR offered x3. Oral care done with RT at bedside, partial linen change done of top sheet and blanket. Gown left unchanged, bed sheet unchanged and patient not cleaned. Patient A/O x4, able to make his needs known.
[2020-03-25] MEDS ORDERED: NaCl 3% 500ml 500 ML IV ONE (17:00)
--- NOTE | 2020-03-25 19:33 | NUR ---
NURSE HAND-OFF REPORT: Important Events on Shift:[] Patient Status: [FULL CODE] Diet: [clears] Pending Orders: [] Pending Results/Labs:[] Pending MD notification:[] Latest Vital Signs: Temperature 97.8 , Pulse 95 , B/P 159 /100 , Respiratory Rate 20 , O2 SAT 94 , Room Air, O2 Flow Rate 95.0 . Vital Sign Comment: [] EKG Rhythm: Sinus Rhythm Rhythm change?: N MD Notified?: Courtney Paige MD Response: Message left await call Latest Hassan Fall Score: 45 Fall Risk: High Risk Safety Measures: Call light Within Reach, Bed Alarm Zone 1, Side Rails Side Rails x3, Bed position Low and Locked. Fall Precautions: Yellow Socks Yellow Gown Door Sign Patient Fall Education Report given to [Tamie MATHEW].
--- NOTE | 2020-03-25 19:40 | NUR ---
NURSE NOTES: Received report from PRIYANKA Yuan. patient in bed resting, awake,alert oriented x4. On BIPAP 20/12 fi01 95% satting 94%C No s/s of acute distress noted. skin warm and dry to touch. SR on air sampling and monitoring HR 82. no s/s of hypo/hyperglycemia. Left upper arm PICC line intact infusing TPN at 83cc/hr, hypertonic saline 3%at 30cc/hr. 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 Covid +19. Airborne precaution maintained and observed. will continue plan of care.
[2020-03-25] MEDS: Dyna-Hex 2% Top Sol 2oz TOPIC SCH (21:24)
[2020-03-25] MEDS: Miralax 17gm pkt ORAL SCH (21:24)
[2020-03-25] MEDS: TPN IV SCH (21:24)
[2020-03-25] MEDS: FAT EMULSION 20% IV SCH (21:24)
[2020-03-26] VITALS: BP 130/83
--- NOTE | 2020-03-26 | NUR ---
NURSE NOTES: patient in bed resting. no s/s of acute distress noted.
[2020-03-26] MEDS: Trimethoprim/Sulfamethoxazole 20 ML in D5W 500ml 550 ML IV SCH ×3 (01:30→16:24)
[2020-03-26 04:00] VITALS: BP 126/79
[2020-03-26] MEDS: Solu-MEDROL 40mg Inj IVP SCH ×3 (05:54→21:32)
[2020-03-26] MEDS: NovoLOG Insulin Flexpen SUBQ SCH ×4 (06:00→17:02)
--- NOTE | 2020-03-26 07:15 | NUR ---
HAND-OFF: Report given to Leonides MATHEW.patient refused AM care. Explained the risk and importance of am care. patient alert and oriented able to make his own decision.
--- NOTE | 2020-03-26 07:45 | NUR ---
NURSE NOTES: Received report from PRIYANKA Willett. Patient in bed resting, no active s/s cardiac, respiratory distress noticed at this time. Patient Aox4, no c/o pain at this time. SR with HR 88, Patient on BIPAP 20/10 Fio2 95%, O2 sat 90-92% at this time. PICC line on left upper arm, TPN running @ 83ml/h. Bed in lowest position, side rails upx3, call light within reach, bed alarm on, Will continue to monitor.
[2020-03-26 07:57] LABS: HEMATOCRIT 39.8 % (42.0-52.0); MEAN CORPUSCULAR VOLUME 87 FL (80-99); PLATELET COUNT 252 K/UL (150-450); RED BLOOD COUNT 4.58 M/UL (4.70-6.10); RED CELL DISTRIBUTION WIDTH 14.1 % (11.6-14.8); WHITE BLOOD COUNT 10.4 K/UL (4.8-10.8)
[2020-03-26 08:00] VITALS: BP 145/95
[2020-03-26 08:45] LABS: PHOSPHORUS 3.2 MG/DL (2.5-4.9)
[2020-03-26 09:13] LABS: ANION GAP 7 mmol/L (5-15); BLOOD UREA NITROGEN 25 mg/dL (7-18); CALCIUM 8.5 MG/DL (8.5-10.1); CARBON DIOXIDE 32 MMOL/L (21-32); CHLORIDE 98 MMOL/L (98-107); CREATININE 0.6 MG/DL (0.55-1.30); POTASSIUM 4.3 MMOL/L (3.5-5.1); SODIUM 137 MMOL/L (136-145)
[2020-03-26 09:18] LABS: ALANINE AMINOTRANSFERASE 278 U/L (12-78); ALBUMIN 2.1 G/DL (3.4-5.0); ALBUMIN/GLOBULIN RATIO 0.6 (1.0-2.7); ALKALINE PHOSPHATASE 202 U/L (46-116); ASPARTATE AMINO TRANSFERASE 54 U/L (15-37); BILIRUBIN,TOTAL 0.5 MG/DL (0.2-1.0)
[2020-03-26] MEDS: Enoxaparin 40mg Inj SUBQ SCH (09:33)
[2020-03-26] MEDS: Vitamin D 1000 units Tab ORAL SCH (09:33)
[2020-03-26] MEDS: Lactulose 20gm/30ml UDC ORAL SCH ×3 (09:33→17:01)
--- NOTE | 2020-03-26 10:03 | Pulmonology Progress Note ---
Subjective ROS Limited/Unobtainable: Yes Interval Events: tolerating BiPAP; saturating better Constitutional: Reports: fatigue, other - respiratory stable on bipap; Denies: fever HEENT: Repors: no symptoms Respiratory: Reports: dry cough, shortness of breath Cardiovascular: Reports: no symptoms Gastrointestinal/Abdominal: Denies: nausea, vomiting, diarrhea Psychiatric: Reports: other - NA Skin: Denies: rash Musculoskeletal: Denies: pain Allergies: Coded Allergies: No Known Allergies (Unverified , 02/05/20) Objective Last 24 Hour Vital Signs Date Time Temp Pulse Resp B/P (MAP) Pulse Ox O2 Delivery O2 Flow Rate FiO2 03/26/20 04:00 95 03/26/20 04:00 88 03/26/20 04:00 98.4 79 19 126/79 (95) 94 03/26/20 04:00 Bi-pap 95.0 03/26/20 03:49 86 29 92 100 03/26/20 00:00 Bi-pap 95.0 03/26/20 00:00 98.0 82 19 130/83 (99) 94 03/26/20 00:00 95 03/26/20 00:00 82 03/26/20 00:00 Bi-pap 95.0 03/25/20 23:23 82 19 97 100 03/25/20 20:00 98.2 82 20 127/83 (98) 94 03/25/20 20:00 95 03/25/20 20:00 86 03/25/20 20:00 Bi-pap 95.0 03/25/20 19:56 85 19 94 100 03/25/20 16:00 97.8 95 20 159/100 (119) 94 03/25/20 16:00 124 03/25/20 16:00 95 03/25/20 16:00 Bi-pap 95.0 03/25/20 15:00 110 33 86 100 03/25/20 12:00 Bi-pap 95.0 03/25/20 12:00 98.4 82 20 144/84 (104) 93 03/25/20 12:00 95 03/25/20 12:00 80 03/25/20 10:40 89 29 94 100 Intake and Output 03/25/20 03/26/20 19:00 07:00 Intake Total 1056 ml 1933 ml Output Total 700 ml 800 ml Balance 356 ml 1133 ml IV Total 1056 ml 1933 ml Output Urine Total 700 ml 800 ml # Bowel Movements 1 General Appearance: WD/WN, no acute distress HEENT: normocephalic, atraumatic Respiratory: chest wall non-tender Cardiovascular: normal rate, regular rhythm Abdomen: normal bowel sounds, soft, non tender, other - obese Laboratory Tests 03/26/20 05:58: White Blood Count 10.4, Red Blood Count 4.58L, Hemoglobin 13.0L, Hematocrit 39.8L, Mean Corpuscular Volume 87, Mean Corpuscular Hemoglobin 28.5, Mean Corpuscular Hemoglobin Concent 32.8, Red Cell Distribution Width 14.1, Platelet Count 252, Mean Platelet Volume 6.7, Neutrophils (%) (Auto) , Lymphocytes (%) (Auto) , Monocytes (%) (Auto) , Eosinophils (%) (Auto) , Basophils (%) (Auto) , Differential Total Cells Counted 100, Neutrophils % (Manual) 88H, Lymphocytes % (Manual) 9L, Monocytes % (Manual) 3, Eosinophils % (Manual) 0, Basophils % (Manual) 0, Band Neutrophils 0, Platelet Estimate Adequate, Platelet Morphology Normal, Anisocytosis 1+, Sodium Level 137, Potassium Level 4.3, Chloride Level 98, Carbon Dioxide Level 32, Anion Gap 7, Blood Urea Nitrogen 25H, Creatinine 0.6, Estimat Glomerular Filtration Rate > 60, Glucose Level 102, Calcium Level 8.5, Phosphorus Level 3.2, Magnesium Level 1.8, Total Bilirubin 0.5, Aspartate Amino Transf (AST/SGOT) 54H, Alanine Aminotransferase (ALT/SGPT) 278H, Alkaline Phosphatase 202H, Total Protein 5.7L, Albumin 2.1L, Globulin 3.6, Albumin/Globulin Ratio 0.6L Current Medications Medications (Trade) Dose Ordered Sig/Dennis Route PRN Reason Start Time Stop Time Status Last Admin Dose Admin Acetaminophen (Tylenol) 650 mg Q4H PRN ORAL Mild Pain (Pain Scale 1-3) 03/09/20 12:00 04/08/20 11:59 Bisacodyl (Dulcolax) 10 mg HSPRN PRN RECTAL Constipation 02/05/20 13:15 05/05/20 13:14 Bisacodyl (Dulcolax) 10 mg Q12H PRN RECTAL Constipation 03/18/20 16:45 06/16/20 16:44 Chlorhexidine Gluconate (Marlen-Hex 2%) 1 applic DAILY@2000 TOPIC 02/14/20 20:00 05/14/20 19:59 03/25/20 21:24 Clonidine HCl (Catapres TTS-2) 1 patch QWEEK TDERMAL 03/21/20 18:00 06/19/20 17:59 03/21/20 17:22 Dextrose 1,000 ml @ 0 mls/hr Q24H PRN IV PN interrupted or unavailable 03/09/20 20:00 04/08/20 19:59 Dextrose (Dextrose 50%) 25 ml Q30M PRN IV Hypoglycemia 03/10/20 00:00 06/08/20 00:00 Dextrose (Dextrose 50%) 50 ml Q30M PRN IV Hypoglycemia 03/10/20 00:00 06/08/20 00:00 Enoxaparin Sodium (Lovenox) 40 mg DAILY SUBQ 03/13/20 12:00 06/11/20 11:59 03/26/20 09:33 Fat Emulsion Intravenous 192 ml/Amino Acids/ Electrolytes/ Dextrose 1,992 ml @ 83 mls/hr Q24H IV 03/17/20 20:00 04/16/20 19:59 03/25/20 21:24 Furosemide (Lasix) 20 mg EVERY 8 HOURS IV 03/19/20 14:00 04/18/20 13:59 03/26/20 05:54 Hydralazine HCl (Apresoline) 10 mg Q6H PRN IV For High Blood Pressure 03/09/20 17:00 06/07/20 16:59 03/21/20 17:19 Insulin Aspart (NovoLOG) Q6HR SUBQ 03/10/20 00:00 06/08/20 00:00 03/25/20 17:30 Insulin Detemir (Levemir) 18 units Q12HR SUBQ 03/14/20 21:00 06/10/20 20:59 03/25/20 21:51 Lactulose (Cephulac) 20 gm THREE TIMES A DAY ORAL 03/08/20 13:00 04/07/20 12:59 03/26/20 09:33 Methylprednisolone Sodium Succinate (Solu-MEDROL) 40 mg EVERY 8 HOURS IVP 1/20/21 14:00 06/20/20 13:59 03/26/20 05:54 Pantoprazole (Protonix) 40 mg EVERY 12 HOURS ORAL 03/25/20 21:00 04/24/20 20:59 03/26/20 09:33 Polyethylene Glycol (Miralax) 17 gm BEDTIME ORAL 03/08/20 21:00 04/07/20 20:59 03/25/20 21:24 Trimethoprim/ Sulfamethoxazole 20 ml/Dextrose 570 ml @ 380 mls/hr [id number] BACTRIM IV 03/25/20 16:00 04/01/20 16:00 03/26/20 09:34 Vitamin D (Vitamin D) 5,000 unit DAILY ORAL 03/15/20 09:00 04/14/20 08:59 03/26/20 09:33 Assessment/Plan Assessment/Plan Assessment/Plan 1.COVID-19 pneumonia. - last COVID-19 test positive after two negative tests - CTA 02/05/2020 ground-glass and consolidating infiltrates in the dependent portions of both lower lobes and to lesser degree the upper lobes consistent with bilateral pneumonia. No evidence of pulmonary embolus. - CXR 02/17/2020 worsening bilateral infiltrates; Repeat CXR shows basilar linear densities - CT chest 02/18 shows Increased extensive patchy ground-glass opacities and densities throughout the lungs, suggestive of Covid 19 infection. - currently on BiPAP. Saturations 90%. - Mycoplasma pneumoniae IgG 273; M. pneumoniae IgM titer within normal limits - D-dimer 0.90; on full dose Lovenox -Discontinued Decadron, now on Solumedrol - s/p remdesivir - is net I/O negative -We will continue TPN He has had a progressive increase in LDH,-started on Bactrim due to concern about pneumocystis - CXR 03/17 no significant change - CXR 03/22 no significant change 2. Smoker. 3. DVT ppx - on lovenox 4. Hypertension - on hydralazine, - s/p norvasc 5. Blood culture positive for gram positive cocci staph aureus 02/06 - on Abx - CT abd/pelvis showed no abscess per ID - TTE/ FERNY held off due to COVID-19 status - repeat BCx negative for growth 03/17 6. Leukocytosis; resolved - ID following 7. Gram negative zack UTI - s/p rocephin per ID recs - s/p rocephin, cefepime per ID 8. Elevated LFT - positive Hep C Above plan was discussed with supervising physician Makenzie Arizmendi NP Mar 26, 2020 10:03
--- NOTE | 2020-03-26 10:30 | General Progress Note ---
Subjective ROS Limited/Unobtainable: No Allergies: Coded Allergies: No Known Allergies (Unverified , 02/05/20) Objective Last 24 Hour Vital Signs Date Time Temp Pulse Resp B/P (MAP) Pulse Ox O2 Delivery O2 Flow Rate FiO2 03/26/20 04:00 95 03/26/20 04:00 88 03/26/20 04:00 98.4 79 19 126/79 (95) 94 03/26/20 04:00 Bi-pap 95.0 03/26/20 03:49 86 29 92 100 03/26/20 00:00 Bi-pap 95.0 03/26/20 00:00 98.0 82 19 130/83 (99) 94 03/26/20 00:00 95 03/26/20 00:00 82 03/26/20 00:00 Bi-pap 95.0 03/25/20 23:23 82 19 97 100 03/25/20 20:00 98.2 82 20 127/83 (98) 94 03/25/20 20:00 95 03/25/20 20:00 86 03/25/20 20:00 Bi-pap 95.0 03/25/20 19:56 85 19 94 100 03/25/20 16:00 97.8 95 20 159/100 (119) 94 03/25/20 16:00 124 03/25/20 16:00 95 03/25/20 16:00 Bi-pap 95.0 03/25/20 15:00 110 33 86 100 03/25/20 12:00 Bi-pap 95.0 03/25/20 12:00 98.4 82 20 144/84 (104) 93 03/25/20 12:00 95 03/25/20 12:00 80 03/25/20 10:40 89 29 94 100 Intake and Output 03/25/20 03/26/20 19:00 07:00 Intake Total 1056 ml 1933 ml Output Total 700 ml 800 ml Balance 356 ml 1133 ml IV Total 1056 ml 1933 ml Output Urine Total 700 ml 800 ml # Bowel Movements 1 Laboratory Tests 03/26/20 05:58: White Blood Count 10.4, Red Blood Count 4.58L, Hemoglobin 13.0L, Hematocrit 39.8L, Mean Corpuscular Volume 87, Mean Corpuscular Hemoglobin 28.5, Mean Corpuscular Hemoglobin Concent 32.8, Red Cell Distribution Width 14.1, Platelet Count 252, Mean Platelet Volume 6.7, Neutrophils (%) (Auto) , Lymphocytes (%) (Auto) , Monocytes (%) (Auto) , Eosinophils (%) (Auto) , Basophils (%) (Auto) , Differential Total Cells Counted 100, Neutrophils % (Manual) 88H, Lymphocytes % (Manual) 9L, Monocytes % (Manual) 3, Eosinophils % (Manual) 0, Basophils % (Manual) 0, Band Neutrophils 0, Platelet Estimate Adequate, Platelet Morphology Normal, Anisocytosis 1+, Sodium Level 137, Potassium Level 4.3, Chloride Level 98, Carbon Dioxide Level 32, Anion Gap 7, Blood Urea Nitrogen 25H, Creatinine 0.6, Estimat Glomerular Filtration Rate > 60, Glucose Level 102, Calcium Level 8.5, Phosphorus Level 3.2, Magnesium Level 1.8, Total Bilirubin 0.5, Aspartate Amino Transf (AST/SGOT) 54H, Alanine Aminotransferase (ALT/SGPT) 278H, Alkaline Phosphatase 202H, Total Protein 5.7L, Albumin 2.1L, Globulin 3.6, Albumin/Globulin Ratio 0.6L Height (Feet): 5 Height (Inches): 10.00 Weight (Pounds): 240 General Appearance: no apparent distress EENT: normal ENT inspection Neck: supple Cardiovascular: normal rate Respiratory/Chest: decreased breath sounds Abdomen: normal bowel sounds, non tender, soft Extremities: non-tender Assessment/Plan Status: stable, progressing Assessment/Plan: covid + on BIPAP DM HTN FTT constipation not stable for PEG could not tolerate NGT placement TPN for now bowel regimen covid care rising LFTS>>> will monitor>> most likely due to TPN will fu hep c + but neg RNA Da Quintero MD Mar 26, 2020 10:30
[2020-03-26] MEDS: Levemir Flexpen SUBQ SCH ×2 (10:45→22:46)
--- NOTE | 2020-03-26 11:29 | Nephrology Progress Note ---
Assessment/Plan Problem List: (1) Dehydration (2) Electrolyte imbalance (3) COVID-19 virus infection (4) Pneumonia (5) DMII (diabetes mellitus, type 2) (6) Protein malnutrition Assessment Azotemia, hypernatremia Hypoalbuminemia Staff Otilia bacteremia COVID-19 isolation, pneumonia, bilateral infiltrate Hypertension Diabetes mellitus History of smoking Plan March 26: Remains on BiPAP. Remains on TPN. Labs reviewed. Electrolytes and chemistries within normal limits. Continue as is. March 25: Remains on TPN. Labs reviewed. Discussed with pharmacy. Change IV Protonix to p.o. Continue 3% saline infusion with Lasix. Patient full code. March 24: Continue to be on TPN. Labs are reviewed. Aim to collect electrolytes. Discussed with pharmacy. Continue current consultants. March 23: Continues to be on TPN. Labs reviewed. Electrolytes and chemistries all acceptable. Discussed with pharmacy. Continue current management. March 22: On TPN. Labs reviewed. Low sodium noted. 3% saline to be continued. Continue to monitor electrolytes. Discussed with pharmacy. March 21: On TPN. Labs reviewed. Continue 3% saline and Lasix for mild hyponatremia. Continue TPN as these. Discussed with pharmacy. March 20: Remains on TPN. Labs reviewed. Serum sodium higher on IV Lasix and 3% saline infusion. Continue TPN as is. Continue to monitor renal parameters and electrolytes. Discussed with Dr. Mata March 19: Remains on TPN. Labs reviewed. Serum sodium 128. Will give 3% saline with IV Lasix. Continue to monitor electrolytes. No change in TPN c omposition. Discussed with pharmacy. March 18: Remains on TPN. Labs reviewed. Discussed with pharmacist. Will give 3 doses of IV Lasix 20 mg every 8 hours. Continue to monitor serum sodium electrolytes uric acid. White blood cells down. Continue per consultants. March 17: On TPN. Labs reviewed. Discussed with pharmacist. Sodium content increase. Continue to monitor CMP. Patient continues to have leukocytosis. March 16: On TPN. Labs reviewed. Discussed with pharmacist. Appropriate changes made. Continue to monitor electrolytes. March 15: Remains on TPN. Labs reviewed. Discussed with pharmacist. Continue per current management. March 14: Remains on TPN. Labs reviewed, stable. Vitamin D level low, replacement ordered. Continue to monitor electrolytes and renal parameters. March 13: Patient remains on TPN. Discussed with pharmacist. TPN's sodium content adjusted. Labs reviewed. Continue to monitor electrolytes. Blood pressure remains stable. Continue per consultants. March 12: Patient on TPN. Labs reviewed. CPK remains elevated. Abnormal electrolytes and high blood sugar discussed with pharmacist and TPN adjusted. Continue to monitor labs. Oral Protonix added. Ibuprofen discontinued. Can continue to monitor electrolytes and chemistries. Levemir for high blood sugar added. March 11: Patient on TPN. Labs as of 11:15 AM is still pending. Continue per current treatment plan. Will check labs and adjust TPN as needed. Continue per consultants. March 10: Patient on TPN. Labs reviewed. Electrolytes overall stable. CPK is elevated. Will monitor electrolyte, CPK level, lipid panel. Continue per consultants. Discussed with pharmacist. Discussed with RN. Nutritional evaluation noted. Previously: D5W 100 cc an hour Monitor electrolytes renal parameters TPN and Intralipid ordered Will follow Continue per consultants Dietary consult requested Subjective ROS Limited/Unobtainable: Yes Objective Objective Last 24 Hour Vital Signs Date Time Temp Pulse Resp B/P (MAP) Pulse Ox O2 Delivery O2 Flow Rate FiO2 03/26/20 08:00 95 03/26/20 08:00 74 03/26/20 08:00 Bi-pap 03/26/20 08:00 97.0 81 24 145/95 (112) 90 03/26/20 04:00 95 03/26/20 04:00 88 03/26/20 04:00 98.4 79 19 126/79 (95) 94 03/26/20 04:00 Bi-pap 95.0 03/26/20 03:49 86 29 92 100 03/26/20 00:00 Bi-pap 95.0 03/26/20 00:00 98.0 82 19 130/83 (99) 94 03/26/20 00:00 95 03/26/20 00:00 82 03/26/20 00:00 Bi-pap 95.0 03/25/20 23:23 82 19 97 100 03/25/20 20:00 98.2 82 20 127/83 (98) 94 03/25/20 20:00 95 03/25/20 20:00 86 03/25/20 20:00 Bi-pap 95.0 03/25/20 19:56 85 19 94 100 03/25/20 16:00 97.8 95 20 159/100 (119) 94 03/25/20 16:00 124 03/25/20 16:00 95 03/25/20 16:00 Bi-pap 95.0 03/25/20 15:00 110 33 86 100 03/25/20 12:00 Bi-pap 95.0 03/25/20 12:00 98.4 82 20 144/84 (104) 93 03/25/20 12:00 95 03/25/20 12:00 80 Intake and Output 03/25/20 03/26/20 19:00 07:00 Intake Total 1056 ml 1933 ml Output Total 700 ml 800 ml Balance 356 ml 1133 ml IV Total 1056 ml 1933 ml Output Urine Total 700 ml 800 ml # Bowel Movements 1 Current Medications Medications (Trade) Dose Ordered Sig/Dennis Route PRN Reason Start Time Stop Time Status Last Admin Dose Admin Acetaminophen (Tylenol) 650 mg Q4H PRN ORAL Mild Pain (Pain Scale 1-3) 03/09/20 12:00 04/08/20 11:59 Bisacodyl (Dulcolax) 10 mg HSPRN PRN RECTAL Constipation 02/05/20 13:15 05/05/20 13:14 Bisacodyl (Dulcolax) 10 mg Q12H PRN RECTAL Constipation 03/18/20 16:45 06/16/20 16:44 Chlorhexidine Gluconate (Marlen-Hex 2%) 1 applic DAILY@2000 TOPIC 02/14/20 20:00 05/14/20 19:59 03/25/20 21:24 Clonidine HCl (Catapres TTS-2) 1 patch QWEEK TDERMAL 03/21/20 18:00 06/19/20 17:59 03/21/20 17:22 Dextrose 1,000 ml @ 0 mls/hr Q24H PRN IV PN interrupted or unavailable 03/09/20 20:00 04/08/20 19:59 Dextrose (Dextrose 50%) 25 ml Q30M PRN IV Hypoglycemia 03/10/20 00:00 06/08/20 00:00 Dextrose (Dextrose 50%) 50 ml Q30M PRN IV Hypoglycemia 03/10/20 00:00 06/08/20 00:00 Enoxaparin Sodium (Lovenox) 40 mg DAILY SUBQ 03/13/20 12:00 06/11/20 11:59 03/26/20 09:33 Fat Emulsion Intravenous 192 ml/Amino Acids/ Electrolytes/ Dextrose 1,992 ml @ 83 mls/hr Q24H IV 03/17/20 20:00 04/16/20 19:59 03/25/20 21:24 Furosemide (Lasix) 20 mg EVERY 8 HOURS IV 03/19/20 14:00 04/18/20 13:59 03/26/20 05:54 Hydralazine HCl (Apresoline) 10 mg Q6H PRN IV For High Blood Pressure 03/09/20 17:00 06/07/20 16:59 03/21/20 17:19 Insulin Aspart (NovoLOG) Q6HR SUBQ 03/10/20 00:00 06/08/20 00:00 03/25/20 17:30 Insulin Detemir (Levemir) 18 units Q12HR SUBQ 03/14/20 21:00 06/10/20 20:59 03/26/20 10:45 Lactulose (Cephulac) 20 gm THREE TIMES A DAY ORAL 03/08/20 13:00 04/07/20 12:59 03/26/20 09:33 Methylprednisolone Sodium Succinate (Solu-MEDROL) 40 mg EVERY 8 HOURS IVP 03/22/20 14:00 06/20/20 13:59 03/26/20 05:54 Pantoprazole (Protonix) 40 mg EVERY 12 HOURS ORAL 03/25/20 21:00 04/24/20 20:59 03/26/20 09:33 Polyethylene Glycol (Miralax) 17 gm BEDTIME ORAL 03/08/20 21:00 04/07/20 20:59 03/25/20 21:24 Trimethoprim/ Sulfamethoxazole 20 ml/Dextrose 570 ml @ 380 mls/hr [id number] BACTRIM IV 03/25/20 16:00 04/01/20 16:00 03/26/20 09:34 Vitamin D (Vitamin D) 5,000 unit DAILY ORAL 03/15/20 09:00 04/14/20 08:59 03/26/20 09:33 Laboratory Tests 03/26/20 05:58: White Blood Count 10.4, Red Blood Count 4.58L, Hemoglobin 13.0L, Hematocrit 39.8L, Mean Corpuscular Volume 87, Mean Corpuscular Hemoglobin 28.5, Mean Corpuscular Hemoglobin Concent 32.8, Red Cell Distribution Width 14.1, Platelet Count 252, Mean Platelet Volume 6.7, Neutrophils (%) (Auto) , Lymphocytes (%) (Auto) , Monocytes (%) (Auto) , Eosinophils (%) (Auto) , Basophils (%) (Auto) , Differential Total Cells Counted 100, Neutrophils % (Manual) 88H, Lymphocytes % (Manual) 9L, Monocytes % (Manual) 3, Eosinophils % (Manual) 0, Basophils % (Manual) 0, Band Neutrophils 0, Platelet Estimate Adequate, Platelet Morphology Normal, Anisocytosis 1+, Sodium Level 137, Potassium Level 4.3, Chloride Level 98, Carbon Dioxide Level 32, Anion Gap 7, Blood Urea Nitrogen 25H, Creatinine 0.6, Estimat Glomerular Filtration Rate > 60, Glucose Level 102, Calcium Level 8.5, Phosphorus Level 3.2, Magnesium Level 1.8, Total Bilirubin 0.5, Aspartate Amino Transf (AST/SGOT) 54H, Alanine Aminotransferase (ALT/SGPT) 278H, Alkaline Phosphatase 202H, Total Protein 5.7L, Albumin 2.1L, Globulin 3.6, Albumin/Globulin Ratio 0.6L Height (Feet): 5 Height (Inches): 10.00 Weight (Pounds): 240 General Appearance: no apparent distress EENT: other - Remains on BiPAP Cardiovascular: normal rate Respiratory/Chest: decreased breath sounds Abdomen: distended Rubin Cooper MD Mar 26, 2020 11:29
[2020-03-26 12:00] VITALS: BP 138/90
--- NOTE | 2020-03-26 13:36 | NUR ---
NURSE NOTES: Patient AOx4, take off BIPAP himself, educated/informed to call Staff if need to take off BIPAP, O2 sat now 90%.
[2020-03-26 16:00] VITALS: BP 154/69
--- NOTE | 2020-03-26 16:20 | NUR ---
NURSE NOTES: Patient refused to be cleaned, blanket changed , asked x3 to change gown/pads/condom cath, per patient will ask if needed to be changed.
--- NOTE | 2020-03-26 19:12 | NUR ---
NURSE HAND-OFF REPORT: Important Events on Shift: na Patient Status: stable/guarded Diet: Clear liquid diet Pending Orders: na Pending Results/Labs:na Pending MD notification:na Latest Vital Signs: Temperature 97.5 , Pulse 78 , B/P 154 /69 , Respiratory Rate 22 , O2 SAT 90 , Room Air, O2 Flow Rate 95.0 . Vital Sign Comment: stable, O2 sat fluctuate 89-90s EKG Rhythm: Sinus Rhythm Rhythm change?: N MD Notified?: Cuortney Paige MD Response: Message left await call Latest Hassan Fall Score: 45 Fall Risk: High Risk Safety Measures: Call light Within Reach, Bed Alarm Zone 1, Side Rails Side Rails x3, Bed position Low and Locked. Fall Precautions: Yellow Socks Yellow Gown Door Sign Patient Fall Education Report given to PRIYANKA Johnson.
--- NOTE | 2020-03-26 19:40 | NUR ---
NURSE NOTES: Received report from PRIYANKA Lopez. Upon assessment pt appears disheveled, anxious, able to make needs known. A/O x4. PERRLA. Vitals stable, afebrile. Saturating 91% on BiPAP settings of 20/10 95% fio2. 5-lead EKG shows SR. WAYNE patent and intact; TPN running at 83mL. Condom cath draining well to gravity. Bed kept in lowest and locked position. Side rails up x3. Call light within reach. Will monitor.
[2020-03-26 20:00] VITALS: BP 149/98
[2020-03-26] MEDS: Miralax 17gm pkt ORAL SCH (21:32)
[2020-03-26] MEDS: Dyna-Hex 2% Top Sol 2oz TOPIC SCH (21:32)
--- NOTE | 2020-03-26 22:00 | NUR ---
NURSE NOTES: BSG 120. No insulin given per protocol. Patient running TPN. Asked pt if I can provide bed bath since sheets appear soiled. Patient refuses. Will monitor.
[2020-03-26] MEDS: FAT EMULSION 20% IV SCH (22:18)
[2020-03-26] MEDS: TPN IV SCH (22:18)
[2020-03-27] VITALS: BP 145/101
[2020-03-27] MEDS: Trimethoprim/Sulfamethoxazole 20 ML in D5W 500ml 550 ML IV SCH ×4 (01:11→23:58)
--- NOTE | 2020-03-27 03:35 | NUR ---
NURSE NOTES: Pt refusing bed bath and oral care. Provided warm wipes and new blanket on bedside table. No distress noted. RT at bedside, unable to wean fiO2 due to desaturation. Will monitor.
[2020-03-27 04:00] VITALS: BP 139/89
[2020-03-27] MEDS: Solu-MEDROL 40mg Inj IVP SCH ×3 (05:27→22:09)
[2020-03-27] MEDS: NovoLOG Insulin Flexpen SUBQ SCH ×4 (06:00→18:00)
--- NOTE | 2020-03-27 07:15 | NUR ---
NURSE NOTES: Received report from PRIYANKA Shafer. Patient is AO x4, in bed awake. Patient on Bipap 20/10 FiO2 95%, no respiratory distress noted at this time. Patient on TPN 83ml/hr. Condom cath draining well to gravity. Bed in lowest position, locked with side rails x2 up. Call light within reach.
--- NOTE | 2020-03-27 07:40 | NUR ---
NURSE HAND-OFF REPORT: Important Events on Shift: no changes Patient Status: Diet: TPN Pending Orders: Pending Results/Labs: Pending MD notification: Latest Vital Signs: Temperature 98.0 , Pulse 71 , B/P 139 /89 , Respiratory Rate 21 , O2 SAT 92 , Room Air, O2 Flow Rate 95.0 . Vital Sign Comment: EKG Rhythm: Sinus Rhythm Rhythm change?: N MD Notified?: Y Grecia INTERIANO Response: Message left await call Latest Hassan Fall Score: 45 Fall Risk: High Risk Safety Measures: Call light Within Reach, Bed Alarm Zone 1, Side Rails Side Rails x3, Bed position Low and Locked. Fall Precautions: Yellow Socks Yellow Gown Door Sign Patient Fall Education Report given to .
[2020-03-27 08:00] VITALS: BP 138/80
[2020-03-27] MEDS: Enoxaparin 40mg Inj SUBQ SCH (08:23)
--- NOTE | 2020-03-27 08:46 | NUR ---
CASE MANAGEMENT:REVIEW 03/27/20 SI: COVID PNA. UTI 97.6 79 21 138/80 92% ON BIPAP W/95% FIO2 WBC+11.0 H/H-12.6/39.5 AST/ALT+75/278 IS: TPN/IL @ 83/HR IV SOLUMEDROL Q8HRS IV BACTRIM Q8HRS IV LASIX Q8HR LOVENOX SQ QD : STEP DOWN UNIT DCP: PATIENT WAS LIVING IN A HOTEL PRIOR TO ADMISSION
--- NOTE | 2020-03-27 08:51 | General Progress Note ---
Subjective ROS Limited/Unobtainable: Yes Allergies: Coded Allergies: No Known Allergies (Unverified , 02/05/20) Objective Last 24 Hour Vital Signs Date Time Temp Pulse Resp B/P (MAP) Pulse Ox O2 Delivery O2 Flow Rate FiO2 03/27/20 08:00 97.6 79 21 138/80 (99) 92 03/27/20 04:00 Bi-pap 03/27/20 04:00 95 03/27/20 04:00 98.0 71 21 139/89 (106) 92 03/27/20 04:00 88 03/27/20 03:39 75 19 92 100 03/27/20 00:00 Bi-pap 03/27/20 00:00 97.9 83 20 145/101 (116) 93 03/27/20 00:00 75 03/27/20 00:00 95 03/26/20 23:40 65 17 94 100 03/26/20 20:00 95 03/26/20 20:00 79 03/26/20 20:00 Bi-pap 03/26/20 20:00 97.7 91 20 149/98 (115) 93 03/26/20 19:48 84 27 92 100 03/26/20 16:00 95 03/26/20 16:00 Bi-pap 03/26/20 16:00 78 03/26/20 16:00 97.5 83 22 154/69 (97) 90 03/26/20 13:30 95 20 93 100 03/26/20 12:00 Bi-pap 03/26/20 12:00 78 03/26/20 12:00 95 03/26/20 12:00 97.8 90 25 138/90 (106) 90 Intake and Output 03/26/20 03/27/20 19:00 07:00 Intake Total 1646 ml 58.1 ml Output Total 1900 ml 1000 ml Balance -254 ml -941.9 ml IV Total 1646 ml 58.1 ml Output Urine Total 1900 ml 1000 ml # Bowel Movements 2 Laboratory Tests 03/26/20 09:40: POC Whole Blood Glucose [Pending] 03/26/20 13:19: POC Whole Blood Glucose 178H 03/26/20 16:54: POC Whole Blood Glucose 129H 03/26/20 22:34: POC Whole Blood Glucose 102 03/26/20 23:34: POC Whole Blood Glucose 172H 03/27/20 01:13: POC Whole Blood Glucose 128H 03/27/20 05:43: POC Whole Blood Glucose 139H Height (Feet): 5 Height (Inches): 10.00 Weight (Pounds): 240 General Appearance: no apparent distress EENT: normal ENT inspection Neck: supple Cardiovascular: normal rate Respiratory/Chest: decreased breath sounds Abdomen: normal bowel sounds, non tender, soft Extremities: non-tender Assessment/Plan Status: stable, progressing Assessment/Plan: covid + on BIPAP DM HTN FTT constipation not stable for PEG could not tolerate NGT placement TPN for now bowel regimen covid care rising LFTS>>> will monitor>> most likely due to TPN will fu hep c + but neg RNA trial of Da Oh MD Mar 27, 2020 08:51
--- NOTE | 2020-03-27 08:56 | Nephrology Progress Note ---
Assessment/Plan Problem List: (1) Dehydration (2) Electrolyte imbalance (3) COVID-19 virus infection (4) Pneumonia (5) DMII (diabetes mellitus, type 2) (6) Protein malnutrition Assessment Azotemia, hypernatremia Hypoalbuminemia Staff Otilia bacteremia COVID-19 isolation, pneumonia, bilateral infiltrate Hypertension Diabetes mellitus History of smoking Plan March 27: Remains on BiPAP. No chemistry panel done today. Full code. On TPN. Will check lab tomorrow. March 26: Remains on BiPAP. Remains on TPN. Labs reviewed. Electrolytes and chemistries within normal limits. Continue as is. March 25: Remains on TPN. Labs reviewed. Discussed with pharmacy. Change IV Protonix to p.o. Continue 3% saline infusion with Lasix. Patient full code. March 24: Continue to be on TPN. Labs are reviewed. Aim to collect electrolytes. Discussed with pharmacy. Continue current consultants. March 23: Continues to be on TPN. Labs reviewed. Electrolytes and chemistries all acceptable. Discussed with pharmacy. Continue current management. March 22: On TPN. Labs reviewed. Low sodium noted. 3% saline to be continued. Continue to monitor electrolytes. Discussed with pharmacy. March 21: On TPN. Labs reviewed. Continue 3% saline and Lasix for mild hyponatremia. Continue TPN as these. Discussed with pharmacy. March 20: Remains on TPN. Labs reviewed. Serum sodium higher on IV Lasix and 3% saline infusion. Continue TPN as is. Continue to monitor renal parameters and electrolytes. Discussed with Dr. Mata March 19: Remains on TPN. Labs reviewed. Serum sodium 128. Will give 3% saline with IV Lasix. Continue to monitor electrolytes. No change in TPN composition. Discussed with pharmacy. March 18: Remains on TPN. Labs reviewed. Discussed with pharmacist. Will give 3 doses of IV Lasix 20 mg every 8 hours. Continue to monitor serum sodium electrolytes uric acid. White blood cells down. Continue per consultants. March 17: On TPN. Labs reviewed. Discussed with pharmacist. Sodium content increase. Continue to monitor CMP. Patient continues to have leukocytosis. March 16: On TPN. Labs reviewed. Discussed with pharmacist. Appropriate changes made. Continue to monitor electrolytes. March 15: Remains on TPN. Labs reviewed. Discussed with pharmacist. Continue per current management. March 14: Remains on TPN. Labs reviewed, stable. Vitamin D level low, replacement ordered. Continue to monitor electrolytes and renal parameters. March 13: Patient remains on TPN. Discussed with pharmacist. TPN's sodium content adjusted. Labs reviewed. Continue to monitor electrolytes. Blood pressure remains stable. Continue per consultants. March 12: Patient on TPN. Labs reviewed. CPK remains elevated. Abnormal electrolytes and high blood sugar discussed with pharmacist and TPN adjusted. Continue to monitor labs. Oral Protonix added. Ibuprofen discontinued. Can continue to monitor electrolytes and chemistries. Levemir for high blood sugar added. March 11: Patient on TPN. Labs as of 11:15 AM is still pending. Continue per current treatment plan. Will check labs and adjust TPN as needed. Continue per consultants. March 10: Patient on TPN. Labs reviewed. Electrolytes overall stable. CPK is elevated. Will monitor electrolyte, CPK level, lipid panel. Continue per consultants. Discussed with pharmacist. Discussed with RN. Nutritional evaluation noted. Previously: D5W 100 cc an hour Monitor electrolytes renal parameters TPN and Intralipid ordered Will follow Continue per consultants Dietary consult requested Subjective ROS Limited/Unobtainable: Yes Objective Objective Last 24 Hour Vital Signs Date Time Temp Pulse Resp B/P (MAP) Pulse Ox O2 Delivery O2 Flow Rate FiO2 03/27/20 08:00 97.6 79 21 138/80 (99) 92 03/27/20 04:00 Bi-pap 03/27/20 04:00 95 03/27/20 04:00 98.0 71 21 139/89 (106) 92 03/27/20 04:00 88 03/27/20 03:39 75 19 92 100 03/27/20 00:00 Bi-pap 03/27/20 00:00 97.9 83 20 145/101 (116) 93 03/27/20 00:00 75 03/27/20 00:00 95 03/26/20 23:40 65 17 94 100 03/26/20 20:00 95 03/26/20 20:00 79 03/26/20 20:00 Bi-pap 03/26/20 20:00 97.7 91 20 149/98 (115) 93 03/26/20 19:48 84 27 92 100 03/26/20 16:00 95 03/26/20 16:00 Bi-pap 03/26/20 16:00 78 03/26/20 16:00 97.5 83 22 154/69 (97) 90 03/26/20 13:30 95 20 93 100 03/26/20 12:00 Bi-pap 03/26/20 12:00 78 03/26/20 12:00 95 03/26/20 12:00 97.8 90 25 138/90 (106) 90 Intake and Output 03/26/20 03/27/20 19:00 07:00 Intake Total 1646 ml 58.1 ml Output Total 1900 ml 1000 ml Balance -254 ml -941.9 ml IV Total 1646 ml 58.1 ml Output Urine Total 1900 ml 1000 ml # Bowel Movements 2 Current Medications Medications (Trade) Dose Ordered Sig/Dennis Route PRN Reason Start Time Stop Time Status Last Admin Dose Admin Acetaminophen (Tylenol) 650 mg Q4H PRN ORAL Mild Pain (Pain Scale 1-3) 03/09/20 12:00 04/08/20 11:59 Bisacodyl (Dulcolax) 10 mg HSPRN PRN RECTAL Constipation 02/05/20 13:15 05/05/20 13:14 Bisacodyl (Dulcolax) 10 mg Q12H PRN RECTAL Constipation 03/18/20 16:45 06/16/20 16:44 Chlorhexidine Gluconate (Marlen-Hex 2%) 1 applic DAILY@2000 TOPIC 02/14/20 20:00 05/14/20 19:59 03/26/20 21:32 Clonidine HCl (Catapres TTS-2) 1 patch QWEEK TDERMAL 03/21/20 18:00 06/19/20 17:59 03/21/20 17:22 Dextrose 1,000 ml @ 0 mls/hr Q24H PRN IV PN interrupted or unavailable 03/09/20 20:00 04/08/20 19:59 Dextrose (Dextrose 50%) 25 ml Q30M PRN IV Hypoglycemia 03/10/20 00:00 06/08/20 00:00 Dextrose (Dextrose 50%) 50 ml Q30M PRN IV Hypoglycemia 03/10/20 00:00 06/08/20 00:00 Enoxaparin Sodium (Lovenox) 40 mg DAILY SUBQ 03/13/20 12:00 06/11/20 11:59 03/27/20 08:23 Fat Emulsion Intravenous 192 ml/Amino Acids/ Electrolytes/ Dextrose 1,992 ml @ 83 mls/hr Q24H IV 03/17/20 20:00 04/16/20 19:59 03/26/20 22:18 Furosemide (Lasix) 20 mg EVERY 8 HOURS IV 03/19/20 14:00 04/18/20 13:59 03/27/20 05:28 Hydralazine HCl (Apresoline) 10 mg Q6H PRN IV For High Blood Pressure 03/09/20 17:00 06/07/20 16:59 03/21/20 17:19 Insulin Aspart (NovoLOG) Q6HR SUBQ 03/10/20 00:00 06/08/20 00:00 03/26/20 13:25 Insulin Detemir (Levemir) 18 units Q12HR SUBQ 03/14/20 21:00 06/10/20 20:59 03/26/20 22:46 Lactulose (Cephulac) 20 gm THREE TIMES A DAY ORAL 03/08/20 13:00 04/07/20 12:59 03/26/20 09:33 Methylprednisolone Sodium Succinate (Solu-MEDROL) 40 mg EVERY 8 HOURS IVP 03/22/20 14:00 06/20/20 13:59 03/27/20 05:27 Pantoprazole (Protonix) 40 mg EVERY 12 HOURS ORAL 03/25/20 21:00 04/24/20 20:59 03/26/20 21:32 Polyethylene Glycol (Miralax) 17 gm BEDTIME ORAL 03/08/20 21:00 04/07/20 20:59 03/26/20 21:32 Trimethoprim/ Sulfamethoxazole 20 ml/Dextrose 570 ml @ 380 mls/hr [id number] BACTRIM IV 03/25/20 16:00 04/01/20 16:00 03/27/20 08:22 Vitamin D (Vitamin D) 5,000 unit DAILY ORAL 03/15/20 09:00 04/14/20 08:59 03/26/20 09:33 Laboratory Tests 03/26/20 09:40: POC Whole Blood Glucose [Pending] 03/26/20 13:19: POC Whole Blood Glucose 178H 03/26/20 16:54: POC Whole Blood Glucose 129H 03/26/20 22:34: POC Whole Blood Glucose 102 03/26/20 23:34: POC Whole Blood Glucose 172H 03/27/20 01:13: POC Whole Blood Glucose 128H 03/27/20 05:43: POC Whole Blood Glucose 139H Height (Feet): 5 Height (Inches): 10.00 Weight (Pounds): 240 General Appearance: no apparent distress EENT: other - Remains on BiPAP Cardiovascular: normal rate Respiratory/Chest: decreased breath sounds Abdomen: distended Rubin Cooper MD Mar 27, 2020 08:56
[2020-03-27] MEDS: Lactulose 20gm/30ml UDC ORAL SCH ×3 (09:00→18:00)
[2020-03-27] MEDS: Vitamin D 1000 units Tab ORAL SCH (09:00)
[2020-03-27] MEDS: Levemir Flexpen SUBQ SCH ×2 (09:18→20:59)
[2020-03-27 12:00] VITALS: BP 140/92
--- NOTE | 2020-03-27 14:04 | Pulmonology Progress Note ---
Subjective ROS Limited/Unobtainable: Yes Interval Events: tolerating BiPAP; saturating better Constitutional: Reports: fatigue, other - respiratory stable on bipap; Denies: fever HEENT: Repors: no symptoms Respiratory: Reports: dry cough, shortness of breath Cardiovascular: Reports: no symptoms Gastrointestinal/Abdominal: Denies: nausea, vomiting, diarrhea Psychiatric: Reports: other - NA Skin: Denies: rash Musculoskeletal: Denies: pain Allergies: Coded Allergies: No Known Allergies (Unverified , 02/05/20) Objective Last 24 Hour Vital Signs Date Time Temp Pulse Resp B/P (MAP) Pulse Ox O2 Delivery O2 Flow Rate FiO2 03/27/20 12:00 78 03/27/20 12:00 95 03/27/20 12:00 98.0 87 23 140/92 (108) 93 03/27/20 12:00 Bi-pap 03/27/20 08:00 76 03/27/20 08:00 97.6 79 21 138/80 (99) 92 03/27/20 08:00 Bi-pap 03/27/20 08:00 95 03/27/20 04:00 Bi-pap 03/27/20 04:00 95 03/27/20 04:00 98.0 71 21 139/89 (106) 92 03/27/20 04:00 88 03/27/20 03:39 75 19 92 100 03/27/20 00:00 Bi-pap 03/27/20 00:00 97.9 83 20 145/101 (116) 93 03/27/20 00:00 75 03/27/20 00:00 95 03/26/20 23:40 65 17 94 100 03/26/20 20:00 95 03/26/20 20:00 79 03/26/20 20:00 Bi-pap 03/26/20 20:00 97.7 91 20 149/98 (115) 93 03/26/20 19:48 84 27 92 100 03/26/20 16:00 95 03/26/20 16:00 Bi-pap 03/26/20 16:00 78 03/26/20 16:00 97.5 83 22 154/69 (97) 90 Intake and Output 03/26/20 03/27/20 19:00 07:00 Intake Total 1646 ml 58.1 ml Output Total 1900 ml 1000 ml Balance -254 ml -941.9 ml IV Total 1646 ml 58.1 ml Output Urine Total 1900 ml 1000 ml # Bowel Movements 2 General Appearance: WD/WN, no acute distress HEENT: normocephalic, atraumatic Respiratory: chest wall non-tender Cardiovascular: normal rate, regular rhythm Abdomen: normal bowel sounds, soft, non tender, other - obese Laboratory Tests 03/26/20 16:54: POC Whole Blood Glucose 129H 03/26/20 22:34: POC Whole Blood Glucose 102 03/26/20 23:34: POC Whole Blood Glucose 172H 03/27/20 01:13: POC Whole Blood Glucose 128H 03/27/20 05:43: POC Whole Blood Glucose 139H Current Medications Medications (Trade) Dose Ordered Sig/Dennis Route PRN Reason Start Time Stop Time Status Last Admin Dose Admin Acetaminophen (Tylenol) 650 mg Q4H PRN ORAL Mild Pain (Pain Scale 1-3) 03/09/20 12:00 04/08/20 11:59 Bisacodyl (Dulcolax) 10 mg HSPRN PRN RECTAL Constipation 02/05/20 13:15 05/05/20 13:14 Bisacodyl (Dulcolax) 10 mg Q12H PRN RECTAL Constipation 03/18/20 16:45 06/16/20 16:44 Chlorhexidine Gluconate (Marlen-Hex 2%) 1 applic DAILY@2000 TOPIC 02/14/20 20:00 05/14/20 19:59 03/26/20 21:32 Clonidine HCl (Catapres TTS-2) 1 patch QWEEK TDERMAL 03/21/20 18:00 06/19/20 17:59 03/21/20 17:22 Dextrose 1,000 ml @ 0 mls/hr Q24H PRN IV PN interrupted or unavailable 03/09/20 20:00 04/08/20 19:59 Dextrose (Dextrose 50%) 25 ml Q30M PRN IV Hypoglycemia 03/10/20 00:00 06/08/20 00:00 Dextrose (Dextrose 50%) 50 ml Q30M PRN IV Hypoglycemia 03/10/20 00:00 06/08/20 00:00 Enoxaparin Sodium (Lovenox) 40 mg DAILY SUBQ 03/13/20 12:00 06/11/20 11:59 03/27/20 08:23 Fat Emulsion Intravenous 192 ml/Amino Acids/ Electrolytes/ Dextrose 1,992 ml @ 83 mls/hr Q24H IV 03/17/20 20:00 04/16/20 19:59 03/26/20 22:18 Furosemide (Lasix) 20 mg EVERY 8 HOURS IV 03/19/20 14:00 04/18/20 13:59 03/27/20 05:28 Hydralazine HCl (Apresoline) 10 mg Q6H PRN IV For High Blood Pressure 03/09/20 17:00 06/07/20 16:59 03/21/20 17:19 Insulin Aspart (NovoLOG) Q6HR SUBQ 03/10/20 00:00 06/08/20 00:00 03/26/20 13:25 Insulin Detemir (Levemir) 18 units Q12HR SUBQ 03/14/20 21:00 06/10/20 20:59 03/27/20 09:18 Lactulose (Cephulac) 20 gm THREE TIMES A DAY ORAL 03/08/20 13:00 04/07/20 12:59 03/26/20 09:33 Methylprednisolone Sodium Succinate (Solu-MEDROL) 40 mg EVERY 8 HOURS IVP 03/22/20 14:00 06/20/20 13:59 03/27/20 05:27 Pantoprazole (Protonix) 40 mg EVERY 12 HOURS ORAL 03/25/20 21:00 04/24/20 20:59 03/26/20 21:32 Polyethylene Glycol (Miralax) 17 gm BEDTIME ORAL 03/08/20 21:00 04/07/20 20:59 03/26/20 21:32 Trimethoprim/ Sulfamethoxazole 20 ml/Dextrose 570 ml @ 380 mls/hr [id number] BACTRIM IV 03/25/20 16:00 04/01/20 16:00 03/27/20 08:22 Vitamin D (Vitamin D) 5,000 unit DAILY ORAL 03/15/20 09:00 04/14/20 08:59 03/26/20 09:33 Assessment/Plan Assessment/Plan 1.COVID-19 pneumonia with hypoxia - last COVID-19 test positive after two negative tests - CTA 02/05/2020 ground-glass and consolidating infiltrates in the dependent portions of both lower lobes and to lesser degree the upper lobes consistent with bilateral pneumonia. No evidence of pulmonary embolus. - CXR 02/17/2020 worsening bilateral infiltrates; Repeat CXR shows basilar linear densities - CT chest 02/18 shows Increased extensive patchy ground-glass opacities and densities throughout the lungs, suggestive of Covid 19 infection. - currently on BiPAP. Saturations 90%. - Mycoplasma pneumoniae IgG 273; M. pneumoniae IgM titer within normal limits - D-dimer 0.90; on full dose Lovenox -Discontinued Decadron, now on Solumedrol - s/p remdesivir - is net I/O negative -We will continue TPN He has had a progressive increase in LDH,-started on Bactrim due to concern about pneumocystis. - Looking unchanged today. - CXR 03/17 no significant change - CXR 03/22 no significant change - Scheduled for bronchoscopy tomorrow 2. Initial negative rapid COVID-19 gene assay.- however repeat COVID-19 test positive 3. Smoker. 4. DVT ppx - on lovenox 5. Hypertension - on hydralazine, - s/p norvasc 6. Blood culture positive for gram positive cocci staph aureus 02/06 - on Abx - CT abd/pelvis showed no abscess per ID - TTE/ FERNY held off due to COVID-19 status - repeat BCx negative for growth 03/17 7. Leukocytosis; resolved - ID following 8. Gram negative zack UTI - s/p rocephin per ID recs - s/p rocephin, cefepime per ID 9. Elevated LFT - positive Hep C Counseled on importance of oral care; bronchoscopy tomorrow Continue BiPAP; failed weaning with NRB; will attempt with lowering FiO2 now on lasix (03/19-) The care for this patient was discussed with my supervising physician Time spent for this case was approximately 31 minutes Edilson Marinelli Mar 27, 2020 14:04
--- NOTE | 2020-03-27 14:33 | NUR ---
INSURANCE CLINCALS AND REVIEW FAXED TO [employer] T: [phone] #1 F: [phone] AND ALFRED TECHNICAL MAINTENANCE TECHNICIAN:JACQUELINE JAMES [phone] F: [phone]
[2020-03-27 16:00] VITALS: BP 132/91
--- NOTE | 2020-03-27 16:48 | Infectious Diseases Prog Note ---
Assessment/Plan Assessment/Plan ASSESSMENT AND PLAN: 1. staph aureus bacteremia/mssa, ? source, ? endocarditis, sepsis, leukocytosis, ? CAP, PJP less likely with HIV negative and steroids < 1 month covid-19 +, hypoxia, sob, chest x-ray worse, ? PE, ? HCAP/aspiration pna recurrent fevers - ? fungal, ? OI leukocytosis noted - ? new infection, ? steroids cocci serology negative, legionella negative, beta 1,3 D-glucan wnl, Il-16 - 13.7 elevated LFT's - ? TPN, ? Bactrim - US without gallbladder disease, + steatosis - d/w GI - TPN more likely than bactrim as etiology e.coli uti - bactrim for empiric pneumocystis pna treatment -day # - s/p tx for mssa bacteremia and ? endocarditis - s/p ceftriaxone for e.coli uti - saturations improved, on solumedrol - monitor hypoxia, labs and chest x-ray - CT imaging noted - leukocytosis better - TPN 2. covid-19 isolation 3. Hypertension history. Blood pressure treatment primary care team. 4. Elevated blood sugars. Blood sugar treatment per primary care team. 5. No known drug allergies. 6. Social history is positive for smoking. 7. Family history is noncontributory. 8. MAR was noted. 9. Case was discussed with RN. 10. Continue treatment per primary consultants. Subjective Constitutional: Denies: fever HEENT: Denies: congestion Respiratory: Denies: shortness of breath Cardiovascular: Denies: chest pain Gastrointestinal/Abdominal: Denies: nausea Genitourinary: Denies: dysuria Neurologic: Denies: headache Psychiatric: Denies: depression Skin: Denies: rash Hematologic: Denies: bleeding Musculoskeletal: Denies: pain Allergies: Coded Allergies: No Known Allergies (Unverified , 02/05/20) Objective Last 24 Hour Vital Signs Date Time Temp Pulse Resp B/P (MAP) Pulse Ox O2 Delivery O2 Flow Rate FiO2 03/27/20 12:00 78 03/27/20 12:00 95 03/27/20 12:00 98.0 87 23 140/92 (108) 93 03/27/20 12:00 Bi-pap 03/27/20 08:00 76 03/27/20 08:00 97.6 79 21 138/80 (99) 92 03/27/20 08:00 Bi-pap 03/27/20 08:00 95 03/27/20 04:00 Bi-pap 03/27/20 04:00 95 03/27/20 04:00 98.0 71 21 139/89 (106) 92 03/27/20 04:00 88 03/27/20 03:39 75 19 92 100 03/27/20 00:00 Bi-pap 03/27/20 00:00 97.9 83 20 145/101 (116) 93 03/27/20 00:00 75 03/27/20 00:00 95 03/26/20 23:40 65 17 94 100 03/26/20 20:00 95 03/26/20 20:00 79 03/26/20 20:00 Bi-pap 03/26/20 20:00 97.7 91 20 149/98 (115) 93 03/26/20 19:48 84 27 92 100 Height (Feet): 5 Height (Inches): 10.00 Weight (Pounds): 240 General Appearance: no acute distress HEENT: normocephalic, atraumatic, anicteric, mucous membranes moist Respiratory/Chest: normal breath sounds, no respiratory distress, no accessory muscle use, crackles/rales - less , rhonchi - bilaterally - less Cardiovascular: normal rate, regular rhythm, no gallop/murmur Abdomen: normal bowel sounds, soft, non tender, no organomegaly, non distended Genitourinary: other - no joseph Extremities: no cyanosis Skin: no rash Neurologic/Psychiatric: seal mixer II-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 The infiltrates are typical for Covid 19. No evidence of pulmonary embolus. CT abdomen and pelvis: IMPRESSION: 1. Scattered hepatic hypodense lesions, too small to characterize on this examination without intravenous contrast. 2. Colonic diverticulosis without evidence of acute diverticulitis. 3. Scattered enlarged mesenteric lymph nodes, presumably reactive. teral pneumonia. The infiltrates are typical for Covid 19. No evidence of pulmonary embolus. Chest x-ray - 12/19/19 - Indication: Shortness of breath Technique: One view of the chest Comparison: 02/17/2020 Findings: Interim worsening of bilateral infiltrates, particularly on the right. The heart is borderline enlarged. The pleural spaces are clear. Left arm PICC is again demonstrated Impression: Worsening bilateral infiltrates over one day, likely pneumonia CT chest - 02/19/20 - IMPRESSION: Increased extensive patchy ground-glass opacities and densities throughout the lungs, suggestive of Covid 19 infection. Chest x-ray 02/23/20 - Procedure: XRAY Chest 1v As Indication: Reason For Exam: INFECT Technique: One view of the chest Comparison: 02/20/2020 Findings: Allowing for differences in exposure technique, bilateral mid and lower lung infiltrates are probably unchanged. The heart size is normal. The pleural spaces are clear. Impression: Unchanged, over 4 days, findings as above. Chest x-ray - 02/25/20 - FINDINGS: Lungs: Interval slightly worsening bilateral airspace disease. Pleural space: Unremarkable. No pneumothorax. Heart: Unremarkable. No cardiomegaly. Mediastinum: Unremarkable. Bones/joints: Unremarkable. IMPRESSION: Interval slightly worsening bilateral airspace disease. Chest x-ray - 03/02/20 - Procedure: XRAY Chest 1v Indication: Shortness of breath Technique: One view of the chest Comparison: 02/25/2020 Findings: Bilateral interstitial and airspace infiltrates are unchanged. The heart size is normal. Left arm PICC is again demonstrated Impression: Unchanged, over one day, findings as above. Chest x-ray - 03/06/20 - Procedure: XRAY Chest 1v Indication: Shortness of breath Technique: One view of the chest Comparison: 03/02/2020 Findings: Bilateral infiltrates are unchanged. Normal heart size. Pleural spaces are clear Chest x-ray - 03/12/10 - Impression: COMPARISON: Chest radiograph March 06, 2020. FINDINGS/IMPRESSION: Improving basilar infiltrates. Follow chest radiograph recommended. The upper lung finley are clear. No pneumothorax. Stable cardiomegaly. Stable left upper extremity PICC line. anged, over 4 days, findings as above. Chest x-ray - 03/17/20 - Procedure: XRAY Chest 1v Indication: Shortness of breath Technique: One view of the chest Comparison: 03/12/2020 Findings: Left arm PICC is again demonstrated. Infiltrates are unchanged. The heart size is upper limits of normal. Impression: Unchanged, over 5 days, findings as above. Abdominal US - IMPRESSION: 1. Gallbladder is normal. 2. Hepatic steatosis. 3. 1.7 cm cyst right kidney. Impression. Chest x-ray - Procedure: XRAY Chest 1v Indication: Shortness of breath Technique: One view of the chest Comparison: 03/17/2020 Findings: Bilateral right greater than left infiltrates again demonstrated. The heart size is normal. There is a left arm PICC in good position. Impression: Unchanged, over 5 days, findings as above. Microbiology Date/Time Source Procedure Growth Status 03/18/20 06:15 Urine,Clean Catch Urine Culture - Final Escherichia Coli Complete 03/17/20 18:35 Blood Blood Culture - Final NO GROWTH AFTER 5 DAYS Complete 02/10/20 06:30 Nasopharynx SARS-CoV-2 RdRp Gene Assay - Final Complete Labs Test 03/24/20 20:51 03/24/20 23:55 03/25/20 03:55 03/25/20 05:56 POC Whole Blood Glucose 176 MG/DL (74-106) 135 MG/DL (74-106) 117 MG/DL (74-106) White Blood Count 11.0 K/UL (4.8-10.8) Red Blood Count 4.49 M/UL (4.70-6.10) Hemoglobin 12.6 G/DL (14.2-18.0) Hematocrit 39.5 % (42.0-52.0) Mean Corpuscular Volume 88 FL (80-99) Mean Corpuscular Hemoglobin 28.1 PG (27.0-31.0) Mean Corpuscular Hemoglobin Concent 32.0 G/DL (32.0-36.0) Red Cell Distribution Width 14.5 % (11.6-14.8) Platelet Count 250 K/UL (150-450) Mean Platelet Volume 6.4 FL (6.5-10.1) Neutrophils (%) (Auto) % (45.0-75.0) Lymphocytes (%) (Auto) % (20.0-45.0) Monocytes (%) (Auto) % (1.0-10.0) Eosinophils (%) (Auto) % (0.0-3.0) Basophils (%) (Auto) % (0.0-2.0) Differential Total Cells Counted 100 Neutrophils % (Manual) 91 % (45-75) Lymphocytes % (Manual) 6 % (20-45) Monocytes % (Manual) 3 % (1-10) Eosinophils % (Manual) 0 % (0-3) Basophils % (Manual) 0 % (0-2) Band Neutrophils 0 % (0-8) Platelet Estimate Adequate Platelet Morphology Normal Anisocytosis 1+ Sodium Level 135 MMOL/L (136-145) Potassium Level 4.2 MMOL/L (3.5-5.1) Chloride Level 96 MMOL/L (98-107) Carbon Dioxide Level 28 MMOL/L (21-32) Anion Gap 11 mmol/L (5-15) Blood Urea Nitrogen 29 mg/dL (7-18) Creatinine 0.7 MG/DL (0.55-1.30) Estimat Glomerular Filtration Rate > 60 mL/min (>60) Glucose Level 168 MG/DL (74-106) Uric Acid 2.0 MG/DL (2.6-7.2) Calcium Level 8.8 MG/DL (8.5-10.1) Phosphorus Level 3.6 MG/DL (2.5-4.9) Magnesium Level 1.9 MG/DL (1.8-2.4) Total Bilirubin 0.4 MG/DL (0.2-1.0) Direct Bilirubin 0.4 MG/DL (0.0-0.3) Aspartate Amino Transf (AST/SGOT) 75 U/L (15-37) Alanine Aminotransferase (ALT/SGPT) 278 U/L (12-78) Alkaline Phosphatase 178 U/L (46-116) Total Protein 5.4 G/DL (6.4-8.2) Albumin 2.1 G/DL (3.4-5.0) Test 03/26/20 05:58 03/26/20 09:40 03/26/20 13:19 03/26/20 16:54 White Blood Count 10.4 K/UL (4.8-10.8) Red Blood Count 4.58 M/UL (4.70-6.10) Hemoglobin 13.0 G/DL (14.2-18.0) Hematocrit 39.8 % (42.0-52.0) Mean Corpuscular Volume 87 FL (80-99) Mean Corpuscular Hemoglobin 28.5 PG (27.0-31.0) Mean Corpuscular Hemoglobin Concent 32.8 G/DL (32.0-36.0) Red Cell Distribution Width 14.1 % (11.6-14.8) Platelet Count 252 K/UL (150-450) Mean Platelet Volume 6.7 FL (6.5-10.1) Neutrophils (%) (Auto) % (45.0-75.0) Lymphocytes (%) (Auto) % (20.0-45.0) Monocytes (%) (Auto) % (1.0-10.0) Eosinophils (%) (Auto) % (0.0-3.0) Basophils (%) (Auto) % (0.0-2.0) Differential Total Cells Counted 100 Neutrophils % (Manual) 88 % (45-75) Lymphocytes % (Manual) 9 % (20-45) Monocytes % (Manual) 3 % (1-10) Eosinophils % (Manual) 0 % (0-3) Basophils % (Manual) 0 % (0-2) Band Neutrophils 0 % (0-8) Platelet Estimate Adequate Platelet Morphology Normal Anisocytosis 1+ Sodium Level 137 MMOL/L (136-145) Potassium Level 4.3 MMOL/L (3.5-5.1) Chloride Level 98 MMOL/L (98-107) Carbon Dioxide Level 32 MMOL/L (21-32) Anion Gap 7 mmol/L (5-15) Blood Urea Nitrogen 25 mg/dL (7-18) Creatinine 0.6 MG/DL (0.55-1.30) Estimat Glomerular Filtration Rate > 60 mL/min (>60) Glucose Level 102 MG/DL (74-106) Calcium Level 8.5 MG/DL (8.5-10.1) Phosphorus Level 3.2 MG/DL (2.5-4.9) Magnesium Level 1.8 MG/DL (1.8-2.4) Total Bilirubin 0.5 MG/DL (0.2-1.0) Aspartate Amino Transf (AST/SGOT) 54 U/L (15-37) Alanine Aminotransferase (ALT/SGPT) 278 U/L (12-78) Alkaline Phosphatase 202 U/L (46-116) Total Protein 5.7 G/DL (6.4-8.2) Albumin 2.1 G/DL (3.4-5.0) Globulin 3.6 g/dL Albumin/Globulin Ratio 0.6 (1.0-2.7) POC Whole Blood Glucose 178 MG/DL (74-106) 129 MG/DL (74-106) Test 03/26/20 22:34 03/26/20 23:34 03/27/20 01:13 03/27/20 05:43 POC Whole Blood Glucose 102 MG/DL (74-106) 172 MG/DL (74-106) 128 MG/DL (74-106) 139 MG/DL (74-106) Laboratory Tests Test 03/26/20 16:54 03/26/20 22:34 03/26/20 23:34 03/27/20 01:13 POC Whole Blood Glucose 129 MG/DL (74-106) H 102 MG/DL (74-106) 172 MG/DL (74-106) H 128 MG/DL (74-106) H Test 03/27/20 05:43 POC Whole Blood Glucose 139 MG/DL (74-106) H Current Medications Medications (Trade) Dose Ordered Sig/Dennis Route PRN Reason Start Time Stop Time Status Last Admin Dose Admin Acetaminophen (Tylenol) 650 mg Q4H PRN ORAL Mild Pain (Pain Scale 1-3) 03/09/20 12:00 04/08/20 11:59 Bisacodyl (Dulcolax) 10 mg HSPRN PRN RECTAL Constipation 02/05/20 13:15 05/05/20 13:14 Bisacodyl (Dulcolax) 10 mg Q12H PRN RECTAL Constipation 03/18/20 16:45 06/16/20 16:44 Chlorhexidine Gluconate (Marlen-Hex 2%) 1 applic DAILY@2000 TOPIC 02/14/20 20:00 05/14/20 19:59 03/26/20 21:32 Clonidine HCl (Catapres TTS-2) 1 patch QWEEK TDERMAL 03/21/20 18:00 06/19/20 17:59 03/21/20 17:22 Dextrose 1,000 ml @ 0 mls/hr Q24H PRN IV PN interrupted or unavailable 03/09/20 20:00 04/08/20 19:59 Dextrose (Dextrose 50%) 25 ml Q30M PRN IV Hypoglycemia 03/10/20 00:00 06/08/20 00:00 Dextrose (Dextrose 50%) 50 ml Q30M PRN IV Hypoglycemia 03/10/20 00:00 06/08/20 00:00 Enoxaparin Sodium (Lovenox) 40 mg DAILY SUBQ 03/13/20 12:00 06/11/20 11:59 03/27/20 08:23 Fat Emulsion Intravenous 192 ml/Amino Acids/ Electrolytes/ Dextrose 1,992 ml @ 83 mls/hr Q24H IV 03/17/20 20:00 04/16/20 19:59 03/26/20 22:18 Furosemide (Lasix) 20 mg EVERY 8 HOURS IV 03/19/20 14:00 04/18/20 13:59 03/27/20 14:21 Hydralazine HCl (Apresoline) 10 mg Q6H PRN IV For High Blood Pressure 03/09/20 17:00 06/07/20 16:59 03/21/20 17:19 Insulin Aspart (NovoLOG) Q6HR SUBQ 03/10/20 00:00 06/08/20 00:00 03/26/20 13:25 Insulin Detemir (Levemir) 18 units Q12HR SUBQ 03/14/20 21:00 06/10/20 20:59 03/27/20 09:18 Lactulose (Cephulac) 20 gm THREE TIMES A DAY ORAL 03/08/20 13:00 04/07/20 12:59 03/26/20 09:33 Methylprednisolone Sodium Succinate (Solu-MEDROL) 40 mg EVERY 8 HOURS IVP 03/22/20 14:00 06/20/20 13:59 03/27/20 14:21 Pantoprazole (Protonix) 40 mg EVERY 12 HOURS ORAL 03/25/20 21:00 04/24/20 20:59 03/26/20 21:32 Polyethylene Glycol (Miralax) 17 gm BEDTIME ORAL 03/08/20 21:00 04/07/20 20:59 03/26/20 21:32 Trimethoprim/ Sulfamethoxazole 20 ml/Dextrose 570 ml @ 380 mls/hr [id number] BACTRIM IV 03/25/20 16:00 04/01/20 16:00 03/27/20 08:22 Vitamin D (Vitamin D) 5,000 unit DAILY ORAL 03/15/20 09:00 04/14/20 08:59 03/26/20 09:33 Kisha Salazar MD Mar 27, 2020 16:48
--- NOTE | 2020-03-27 19:15 | NUR ---
NURSE NOTES: Received report from PRIYANKA raya. Pt awake in bed, afebrile, has no respiratory distress noted. On BiPAP 20/10 saturating at 94-95%. With left upper arm PICC Line intact, patent, asymptomatic. With condom catheter to urine bag draining with jeff yellow urine. HOB elevated. Call light within reach. Bed wheels are locked and side rails are up. Continue plan of care.
--- NOTE | 2020-03-27 19:22 | Cardiology Progress Note ---
Assessment/Plan Assessment/Plan Acute covid 19 pneumonia hypoxemia infiltrate bilat bacteremia hypernatremia / hyponatremia mild abn lfts hypoxemia unlikely cardiac related off anticoagulation except for dvt ppx dose continue supportive care is nto taking any po meds so is off norvasc to resuem when he start ttakign pos again echo reviewed 03/12 will repeat cxr noted no environmental change analyst 5 day still with bilat infiltrate on diuretic already , he is hypoxemic still he was on full dose heparin previously as well now on dvt ppx bronch planned repat labs in am an echo Subjective Subjective pt in covid 19 isolation per rn Pt refusing bed bath and oral care. No distress noted. RT at bedside, unable to wean fiO2 due to desaturation. Objective Last 24 Hour Vital Signs Date Time Temp Pulse Resp B/P (MAP) Pulse Ox O2 Delivery O2 Flow Rate FiO2 03/27/20 16:00 98.2 62 20 132/91 (105) 96 03/27/20 16:00 75 03/27/20 16:00 Bi-pap 03/27/20 16:00 95 03/27/20 15:20 78 22 95 90 03/27/20 12:00 78 03/27/20 12:00 95 03/27/20 12:00 98.0 87 23 140/92 (108) 93 03/27/20 12:00 Bi-pap 03/27/20 11:08 84 26 96 95 03/27/20 08:00 76 03/27/20 08:00 97.6 79 21 138/80 (99) 92 03/27/20 08:00 Bi-pap 03/27/20 08:00 95 03/27/20 07:20 79 17 98 95 03/27/20 04:00 Bi-pap 03/27/20 04:00 95 03/27/20 04:00 98.0 71 21 139/89 (106) 92 03/27/20 04:00 88 03/27/20 03:39 75 19 92 100 03/27/20 00:00 Bi-pap 03/27/20 00:00 97.9 83 20 145/101 (116) 93 03/27/20 00:00 75 03/27/20 00:00 95 03/26/20 23:40 65 17 94 100 03/26/20 20:00 95 1/24/21 20:00 79 03/26/20 20:00 Bi-pap 03/26/20 20:00 97.7 91 20 149/98 (115) 93 03/26/20 19:48 84 27 92 100 Intake and Output 03/26/20 03/27/20 19:00 07:00 Intake Total 1646 ml 58.1 ml Output Total 1900 ml 1000 ml Balance -254 ml -941.9 ml IV Total 1646 ml 58.1 ml Output Urine Total 1900 ml 1000 ml # Bowel Movements 2 Laboratory Tests Test 03/26/20 22:34 03/26/20 23:34 03/27/20 01:13 03/27/20 05:43 POC Whole Blood Glucose 102 MG/DL (74-106) 172 MG/DL (74-106) H 128 MG/DL (74-106) H 139 MG/DL (74-106) H Objective pt in covid 19 isoaltion with acute infection Respiratory/Chest: normal breath sounds, no respiratory distress, no accessory muscle use, crackles/rales - less , rhonchi - bilaterally - less Cardiovascular: normal rate, regular rhythm, no gallop/murmur Abdomen: normal bowel sounds, soft, non tender, no organomegaly, non distended Extremities: no cyanosis Manan Awan MD Mar 27, 2020 19:22
--- NOTE | 2020-03-27 19:22 | NUR ---
NURSE HAND-OFF REPORT: Important Events on Shift:NA Patient Status: Stable Diet: clear liquid Pending Orders: NA Pending Results/Labs:NA Pending notification:NA Latest Vital Signs: Temperature 98.2 , Pulse 75 , B/P 132 /91 , Respiratory Rate 20 , O2 SAT 96 , Room Air, O2 Flow Rate 95.0 . Vital Sign Comment: Stable EKG Rhythm: Sinus Rhythm Rhythm change?: N MD Notified?: Courtney Paige MD Response: Message left await call Latest Hassan Fall Score: 45 Fall Risk: High Risk Safety Measures: Call light Within Reach, Bed Alarm Zone 1, Side Rails Side Rails x3, Bed position Low and Locked. Fall Precautions: Yellow Socks Yellow Gown Door Sign Patient Fall Education Report given to PRIYANKA Villasenor.
[2020-03-27 20:00] VITALS: BP 139/103
[2020-03-27] MEDS: Miralax 17gm pkt ORAL SCH (20:34)
[2020-03-27] MEDS: Dyna-Hex 2% Top Sol 2oz TOPIC SCH (20:50)
[2020-03-27] MEDS: TPN IV SCH (20:51)
[2020-03-27] MEDS: FAT EMULSION 20% IV SCH (20:51)
[2020-03-28] VITALS (15 sets, daily range): BP systolic 120–191; BP diastolic 71–117
--- NOTE | 2020-03-28 01:33 | NUR ---
TRANSFER TO FLOOR: Patient transferred to , per DR Babcock. Report given to PRIYANKA Sales. Belongings and medications given to PRIYANKA Sales . Family and or S/O informed of transfer. Addendum: 03/28/20 at 0444 by PIERCE Nevarez RN Correction: Wrong patient . pls disregard
--- NOTE | 2020-03-28 02:00 | NUR ---
NURSE NOTES: Oral done to the patient and tolerated well. PT saturating 93-95%. Gown and linen were changed. Provided blanket. Continue to monitor the patient.
[2020-03-28 05:23] LABS: ALANINE AMINOTRANSFERASE 291 U/L (12-78); ALBUMIN 2.3 G/DL (3.4-5.0); ALBUMIN/GLOBULIN RATIO 0.7 (1.0-2.7); ALKALINE PHOSPHATASE 201 U/L (46-116); ANION GAP 10 mmol/L (5-15); ASPARTATE AMINO TRANSFERASE 64 U/L (15-37); BILIRUBIN,TOTAL 0.4 MG/DL (0.2-1.0); BLOOD UREA NITROGEN 26 mg/dL (7-18); CALCIUM 8.5 MG/DL (8.5-10.1); CARBON DIOXIDE 29 MMOL/L (21-32); CHLORIDE 97 MMOL/L (98-107); CREATININE 0.7 MG/DL (0.55-1.30); POTASSIUM 5.1 MMOL/L (3.5-5.1); SODIUM 136 MMOL/L (136-145)
[2020-03-28 05:27] LABS: HEMATOCRIT 40.8 % (42.0-52.0); HEMOGLOBIN 12.8 G/DL (14.2-18.0); MEAN CORPUSCULAR VOLUME 88 FL (80-99); PHOSPHORUS 3.5 MG/DL (2.5-4.9); PLATELET COUNT 254 K/UL (150-450); RED BLOOD COUNT 4.65 M/UL (4.70-6.10); RED CELL DISTRIBUTION WIDTH 14.3 % (11.6-14.8); WHITE BLOOD COUNT 9.8 K/UL (4.8-10.8)
[2020-03-28] MEDS: Solu-MEDROL 40mg Inj IVP SCH ×3 (05:34→21:11)
[2020-03-28] MEDS: NovoLOG Insulin Flexpen SUBQ SCH ×5 (05:41→23:25)
--- NOTE | 2020-03-28 06:15 | NUR ---
NURSE NOTES: Pt sleeping and O2 sat 93%. Urine output 1800cc noted and BS 137, no insulin given.
--- NOTE | 2020-03-28 07:10 | NUR ---
RESPIRATORY NOTE: Pt received on Bipap with current settings. 20/10 RR:14, 100%. Alarms are on and audible. No foam tape in place, PT refused. Mask re-adjusted; no facial wounds found. No SOB noted at this time. Will continue to monitor.
--- NOTE | 2020-03-28 07:15 | NUR ---
NURSE HAND-OFF REPORT: Important Events on Shift: stable Patient Status: stable Diet:npo Pending Orders: n Pending Results/Labs:n Pending MD notification:n Latest Vital Signs: Temperature 97.3 , Pulse 89 , B/P 144 /96 , Respiratory Rate 26 , O2 SAT 90 , Room Air, O2 Flow Rate 95.0 . Vital Sign Comment: n EKG Rhythm: Sinus Rhythm Rhythm change?: N MD Notified?: Courtney Paige MD Response: Message left await call Latest Hassan Fall Score: 45 Fall Risk: High Risk Safety Measures: Call light Within Reach, Bed Alarm Zone 1, Side Rails Side Rails x3, Bed position Low and Locked. Fall Precautions: Yellow Socks Yellow Gown Door Sign Patient Fall Education Report given to Tahmina Leahy.
--- NOTE | 2020-03-28 07:30 | NUR ---
NURSE NOTES: Received report from PRIYANKA PELAYO. Patient is on bed, sleeping, opens eyes when called name. No signs of grimacing and distress noted. Patient is on BiPap 20/10, 90% FiO2, tolerating well with saturations of 95%. Patient is currently NPO for bronchoscopy today. On condom cath, patent, intact, and draining well. Patient has a R UA DL running TPN at 83 mL/hr, patent, and intact, and saline locked. HOB elevated, bed is on lowest position, locked, side rails up, call light within reach. Will continue to monitor. Will continue plan of care.
--- NOTE | 2020-03-28 07:55 | NUR ---
RESPIRATORY NOTE: Informed by RN that PT had a bronchoscopy in surgery scheduled for 0900. Ask RN to inform the area supervisor that PT does not tolerate being off BiPaP for longer than two minutes before he desaturates. Spoke to Edilson STEVENSON) and informed him that PT does not tolerate being off BiPaP and he informed the Pulmo. replied to go ahead and transport PT to surgery for bronchoscopy. Will wait for nurse to call for transport. Will continue to monitor.
[2020-03-28] MEDS ORDERED: Succinylcholine 20mg/ml 10ml vial ONE (07:58)
[2020-03-28] MEDS ORDERED: Rocuronium Bromide 50mg/5ml Inj IV ONE (07:58)
--- NOTE | 2020-03-28 08:06 | NUR ---
NURSE NOTES: RT endorsed that pt does not tolerate to be off BiPap. Updated Edilson Marinelli (terry JAIME), now aware. Will continue to monitor.
--- NOTE | 2020-03-28 08:09 | NUR ---
RADIOLOGY DEPT., CHEST X-RAY DONE.-P.DYE
--- NOTE | 2020-03-28 08:15 | General Progress Note ---
Subjective ROS Limited/Unobtainable: Yes Allergies: Coded Allergies: No Known Allergies (Unverified , 02/05/20) Objective Last 24 Hour Vital Signs Date Time Temp Pulse Resp B/P (MAP) Pulse Ox O2 Delivery O2 Flow Rate FiO2 03/28/20 04:00 Bi-pap 03/28/20 04:00 97.3 89 26 144/96 (112) 90 03/28/20 04:00 90 03/28/20 03:15 80 23 94 90 03/28/20 03:15 74 03/28/20 00:00 90 03/28/20 00:00 97.3 83 24 140/97 (111) 94 03/28/20 00:00 Bi-pap 03/27/20 23:05 82 22 93 90 03/27/20 23:00 79 03/27/20 20:00 90 03/27/20 20:00 69 03/27/20 20:00 97.3 82 20 139/103 (115) 94 03/27/20 20:00 Bi-pap 03/27/20 19:05 75 23 94 90 03/27/20 19:01 69 03/27/20 16:00 98.2 62 20 132/91 (105) 96 03/27/20 16:00 75 03/27/20 16:00 Bi-pap 03/27/20 16:00 95 03/27/20 15:20 78 22 95 90 03/27/20 12:00 78 03/27/20 12:00 95 03/27/20 12:00 98.0 87 23 140/92 (108) 93 03/27/20 12:00 Bi-pap 03/27/20 11:08 84 26 96 95 Intake and Output 03/27/20 03/28/20 19:00 07:00 Intake Total 1564.45 ml Output Total 1800 ml 1800 ml Balance -1800 ml -235.55 ml IV Total 1564.45 ml Output Urine Total 1800 ml 1800 ml # Bowel Movements 3 Laboratory Tests 03/27/20 20:53: POC Whole Blood Glucose 149H 03/28/20 00:03: POC Whole Blood Glucose 139H 03/28/20 03:55: White Blood Count 9.8, Red Blood Count 4.65L, Hemoglobin 12.8L, Hematocrit 40.8L , Mean Corpuscular Volume 88, Mean Corpuscular Hemoglobin 27.6, Mean Corpuscular Hemoglobin Concent 31.4L, Red Cell Distribution Width 14.3, Platelet Count 254, Mean Platelet Volume 6.5, Neutrophils (%) (Auto) , Lymphocytes (%) (Auto) , Monocytes (%) (Auto) , Eosinophils (%) (Auto) , Basophils (%) (Auto) , Neutrophi ls % (Manual) [Pending], Lymphocytes % (Manual) [Pending], Platelet Estimate [Pending], Platelet Morphology [Pending], Sodium Level 136, Potassium Level 5.1, Chloride Level 97L, Carbon Dioxide Level 29, Anion Gap 10, Blood Urea Nitrogen 26H, Creatinine 0.7, Estimat Glomerular Filtration Rate > 60, Glucose Level 85, Uric Acid 1.6L, Calcium Level 8.5, Phosphorus Level 3.5, Magnesium Level 2.0, Total Bilirubin 0.4, Aspartate Amino Transf (AST/SGOT) 64H, Alanine Aminotransferase (ALT/SGPT) 291H, Alkaline Phosphatase 201H, C-Reactive Protein, Quantitative 1.6H, Pro-B-Type Natriuretic Peptide 276H, Total Protein 5.8L, Albumin 2.3L, Globulin 3.5, Albumin/Globulin Ratio 0.7L, Vitamin D 25-Hydroxy [Pending], 25-Hydroxy Vitamin D2 [Pending], 25-Hydroxy Vitamin D3 [Pending] 03/28/20 05:40: POC Whole Blood Glucose 137H Height (Feet): 5 Height (Inches): 10.00 Weight (Pounds): 240 General Appearance: no apparent distress EENT: normal ENT inspection Neck: supple Cardiovascular: normal rate Respiratory/Chest: decreased breath sounds Abdomen: normal bowel sounds, non tender, soft Extremities: non-tender Assessment/Plan Status: stable, progressing Assessment/Plan: covid + on BIPAP DM HTN FTT constipation not stable for PEG could not tolerate NGT placement TPN for now bowel regimen covid care rising LFTS>>> will monitor>> most likely due to TPN will fu hep c + but neg RNA pending possible bronchoscopy for today trial of Da Oh MD Mar 28, 2020 08:15
[2020-03-28] MEDS: Trimethoprim/Sulfamethoxazole 20 ML in D5W 500ml 550 ML IV SCH ×3 (08:45→23:24)
[2020-03-28] MEDS: Enoxaparin 40mg Inj SUBQ SCH (09:00)
[2020-03-28] MEDS: Vitamin D 1000 units Tab ORAL SCH (09:00)
[2020-03-28] MEDS: Lactulose 20gm/30ml UDC ORAL SCH ×3 (09:00→17:18)
[2020-03-28] MEDS ORDERED: fentaNYL 100 mcg/2 mL IV ONE (09:09)
[2020-03-28] MEDS ORDERED: Midazolam 2mg/2ml Inj ONE (09:09)
[2020-03-28] MEDS: Levemir Flexpen SUBQ SCH ×2 (09:15→20:27)
--- NOTE | 2020-03-28 09:22 | NUR ---
NURSE NOTES: Patient was brought to surgery for Bronchoscopy. Transported with RT Nettie at bedside, and together with YENI Wilkinson.
--- NOTE | 2020-03-28 09:34 | Nephrology Progress Note ---
Assessment/Plan Problem List: (1) Dehydration (2) Electrolyte imbalance (3) COVID-19 virus infection (4) Pneumonia (5) DMII (diabetes mellitus, type 2) (6) Protein malnutrition Assessment Azotemia, hypernatremia Hypoalbuminemia Staff Otilia bacteremia COVID-19 isolation, pneumonia, bilateral infiltrate Hypertension Diabetes mellitus History of smoking Plan March 28: On BiPAP. Full code. On TPN. Labs reviewed. Discussed with kolby. Continue as is. Watch serum potassium. March 27: Remains on BiPAP. No chemistry panel done today. Full code. On T PN. Will check lab tomorrow. March 26: Remains on BiPAP. Remains on TPN. Labs reviewed. Electrolytes and chemistries within normal limits. Continue as is. March 25: Remains on TPN. Labs reviewed. Discussed with pharmacy. Change IV Protonix to p.o. Continue 3% saline infusion with Lasix. Patient full code. March 24: Continue to be on TPN. Labs are reviewed. Aim to collect electrolytes. Discussed with pharmacy. Continue current consultants. March 23: Continues to be on TPN. Labs reviewed. Electrolytes and chemistries all acceptable. Discussed with pharmacy. Continue current management. March 22: On TPN. Labs reviewed. Low sodium noted. 3% saline to be continued. Continue to monitor electrolytes. Discussed with pharmacy. March 21: On TPN. Labs reviewed. Continue 3% saline and Lasix for mild hyponatremia. Continue TPN as these. Discussed with pharmacy. March 20: Remains on TPN. Labs reviewed. Serum sodium higher on IV Lasix and 3% saline infusion. Continue TPN as is. Continue to monitor renal parameters and electrolytes. Discussed with Dr. Mata March 19: Remains on TPN. Labs reviewed. Serum sodium 128. Will give 3% saline with IV Lasix. Continue to monitor electrolytes. No change in TPN composition. Discussed with pharmacy. March 18: Remains on TPN. Labs reviewed. Discussed with pharmacist. Will give 3 doses of IV Lasix 20 mg every 8 hours. Continue to monitor serum sodium electrolytes uric acid. White blood cells down. Continue per consultants. March 17: On TPN. Labs reviewed. Discussed with pharmacist. Sodium content increase. Continue to monitor CMP. Patient continues to have leukocytosis. March 16: On TPN. Labs reviewed. Discussed with pharmacist. Appropriate changes made. Continue to monitor electrolytes. March 15: Remains on TPN. Labs reviewed. Discussed with pharmacist. Continue per current management. March 14: Remains on TPN. Labs reviewed, stable. Vitamin D level low, replacement ordered. Continue to monitor electrolytes and renal parameters. March 13: Patient remains on TPN. Discussed with pharmacist. TPN's sodium content adjusted. Labs reviewed. Continue to monitor electrolytes. Blood pressure remains stable. Continue per consultants. March 12: Patient on TPN. Labs reviewed. CPK remains elevated. Abnormal electrolytes and high blood sugar discussed with pharmacist and TPN adjusted. Continue to monitor labs. Oral Protonix added. Ibuprofen discontinued. Can continue to monitor electrolytes and chemistries. Levemir for high blood sugar added. March 11: Patient on TPN. Labs as of 11:15 AM is still pending. Continue per current treatment plan. Will check labs and adjust TPN as needed. Continue per consultants. March 10: Patient on TPN. Labs reviewed. Electrolytes overall stable. CPK is elevated. Will monitor electrolyte, CPK level, lipid panel. Continue per consultants. Discussed with pharmacist. Discussed with RN. Nutritional evaluation noted. Previously: D5W 100 cc an hour Monitor electrolytes renal parameters TPN and Intralipid ordered Will follow Continue per consultants Dietary consult requested Subjective ROS Limited/Unobtainable: Yes Objective Objective Last 24 Hour Vital Signs Date Time Temp Pulse Resp B/P (MAP) Pulse Ox O2 Delivery O2 Flow Rate FiO2 03/28/20 08:19 88 03/28/20 08:00 Bi-pap 03/28/20 08:00 90 03/28/20 08:00 97.3 70 24 137/92 (107) 91 03/28/20 04:00 Bi-pap 03/28/20 04:00 97.3 89 26 144/96 (112) 90 03/28/20 04:00 90 03/28/20 03:15 80 23 94 90 03/28/20 03:15 74 03/28/20 00:00 90 03/28/20 00:00 97.3 83 24 140/97 (111) 94 03/28/20 00:00 Bi-pap 03/27/20 23:05 82 22 93 90 03/27/20 23:00 79 03/27/20 20:00 90 03/27/20 20:00 69 03/27/20 20:00 97.3 82 20 139/103 (115) 94 03/27/20 20:00 Bi-pap 03/27/20 19:05 75 23 94 90 03/27/20 19:01 69 03/27/20 16:00 98.2 62 20 132/91 (105) 96 03/27/20 16:00 75 03/27/20 16:00 Bi-pap 03/27/20 16:00 95 03/27/20 15:20 78 22 95 90 03/27/20 12:00 78 03/27/20 12:00 95 03/27/20 12:00 98.0 87 23 140/92 (108) 93 03/27/20 12:00 Bi-pap 03/27/20 11:08 84 26 96 95 Intake and Output 03/27/20 03/28/20 19:00 07:00 Intake Total 1564.45 ml Output Total 1800 ml 1800 ml Balance -1800 ml -235.55 ml IV Total 1564.45 ml Output Urine Total 1800 ml 1800 ml # Bowel Movements 3 Current Medications Medications (Trade) Dose Ordered Sig/Dennis Route PRN Reason Start Time Stop Time Status Last Admin Dose Admin Acetaminophen (Tylenol) 650 mg Q4H PRN ORAL Mild Pain (Pain Scale 1-3) 03/09/20 12:00 04/08/20 11:59 Bisacodyl (Dulcolax) 10 mg HSPRN PRN RECTAL Constipation 02/05/20 13:15 05/05/20 13:14 Bisacodyl (Dulcolax) 10 mg Q12H PRN RECTAL Constipation 03/18/20 16:45 06/16/20 16:44 Chlorhexidine Gluconate (Marlen-Hex 2%) 1 applic DAILY@2000 TOPIC 02/14/20 20:00 05/14/20 19:59 03/27/20 20:50 Clonidine HCl (Catapres TTS-2) 1 patch QWEEK TDERMAL 03/21/20 18:00 06/19/20 17:59 03/21/20 17:22 Dextrose 1,000 ml @ 0 mls/hr Q24H PRN IV PN interrupted or unavailable 03/09/20 20:00 04/08/20 19:59 Dextrose (Dextrose 50%) 25 ml Q30M PRN IV Hypoglycemia 03/10/20 00:00 06/08/20 00:00 Dextrose (Dextrose 50%) 50 ml Q30M PRN IV Hypoglycemia 03/10/20 00:00 06/08/20 00:00 Enoxaparin Sodium (Lovenox) 40 mg DAILY SUBQ 03/13/20 12:00 06/11/20 11:59 03/27/20 08:23 Fat Emulsion Intravenous 192 ml/Amino Acids/ Electrolytes/ Dextrose 1,992 ml @ 83 mls/hr Q24H IV 03/17/20 20:00 04/16/20 19:59 03/27/20 20:51 Furosemide (Lasix) 20 mg EVERY 8 HOURS IV 03/19/20 14:00 04/18/20 13:59 03/28/20 05:34 Hydralazine HCl (Apresoline) 10 mg Q6H PRN IV For High Blood Pressure 03/09/20 17:00 06/07/20 16:59 03/21/20 17:19 Insulin Aspart (NovoLOG) Q6HR SUBQ 03/10/20 00:00 06/08/20 00:00 03/26/20 13:25 Insulin Detemir (Levemir) 18 units Q12HR SUBQ 03/14/20 21:00 06/10/20 20:59 03/28/20 09:15 Lactulose (Cephulac) 20 gm THREE TIMES A DAY ORAL 03/08/20 13:00 04/07/20 12:59 03/26/20 09:33 Methylprednisolone Sodium Succinate (Solu-MEDROL) 40 mg EVERY 8 HOURS IVP 03/22/20 14:00 06/20/20 13:59 03/28/20 05:34 Pantoprazole (Protonix) 40 mg EVERY 12 HOURS ORAL 03/25/20 21:00 04/24/20 20:59 03/26/20 21:32 Polyethylene Glycol (Miralax) 17 gm BEDTIME ORAL 03/08/20 21:00 04/07/20 20:59 03/26/20 21:32 Trimethoprim/ Sulfamethoxazole 20 ml/Dextrose 570 ml @ 380 mls/hr [id number] BACTRIM IV 03/25/20 16:00 04/01/20 16:00 03/28/20 08:45 Vitamin D (Vitamin D) 5,000 unit DAILY ORAL 03/15/20 09:00 04/14/20 08:59 03/26/20 09:33 Laboratory Tests 03/27/20 20:53: POC Whole Blood Glucose 149H 03/28/20 00:03: POC Whole Blood Glucose 139H 03/28/20 03:55: White Blood Count 9.8, Red Blood Count 4.65L, Hemoglobin 12.8L, Hematocrit 40.8L , Mean Corpuscular Volume 88, Mean Corpuscular Hemoglobin 27.6, Mean Corpuscular Hemoglobin Concent 31.4L, Red Cell Distribution Width 14.3, Platelet Count 254, Mean Platelet Volume 6.5, Neutrophils (%) (Auto) , Lymphocytes (%) (Auto) , Monocytes (%) (Auto) , Eosinophils (%) (Auto) , Basophils (%) (Auto) , Differential Total Cells Counted 100, Neutrophils % (Manual) 74, Lymphocytes % (Manual) 6L, Monocytes % (Manual) 5, Eosinophils % (Manual) 0, Basophils % (Manual) 0, Band Neutrophils 15H, Platelet Estimate Adequate, Platelet Morphology Normal, Red Blood Cell Morphology Normal, Sodium Level 136, Potassium Level 5.1, Chloride Level 97L, Carbon Dioxide Level 29, Anion Gap 10, Blood Urea Nitrogen 26H, Creatinine 0.7, Estimat Glomerular Filtration Rate > 60, Glucose Level 85, Uric Acid 1.6L, Calcium Level 8.5, Phosphorus Level 3.5, Magnesium Level 2.0, Total Bilirubin 0.4, Aspartate Amino Transf (AST/SGOT) 64H, Alanine Aminotransferase (ALT/SGPT) 291H, Alkaline Phosphatase 201H, C-Reactive Protein, Quantitative 1.6H, Pro-B-Type Natriuretic Peptide 276H, Total Protein 5.8L, Albumin 2.3L, Globulin 3.5, Albumin/Globulin Ratio 0.7L, Vitamin D 25-Hydroxy [Pending], 25-Hydroxy Vitamin D2 [Pending], 25-Hydroxy Vitamin D3 [Pending] 03/28/20 05:40: POC Whole Blood Glucose 137H 03/28/20 08:53: POC Whole Blood Glucose [Pending] Height (Feet): 5 Height (Inches): 10.00 Weight (Pounds): 240 General Appearance: mild distress EENT: other - On continuous BiPAP Cardiovascular: normal rate Respiratory/Chest: decreased breath sounds Abdomen: distended Rubin Cooper MD Mar 28, 2020 09:33
--- NOTE | 2020-03-28 09:40 | Pre-Procedure Note/Attestation ---
Pre-Procedure Note/Attestation Complete Prior to Procedure Planned Procedure: bilateral Procedure Narrative: Bronchoscopy Indications for Procedure Pre-Operative Diagnosis: Upper airway obstruction Attestation I attest that I discussed the nature of the procedure; its benefits; risks and complications; and alternatives (and the risks and benefits of such alternatives), prior to the procedure, with the patient (or the patient's legal warehouse representative). I attest that, if there was a reasonable possibility of needing a blood transfusion, the patient (or the patient's legal warehouse representative) was given the [facility] standardized written summary, pursuant to the [place] Blood Safety Act ([place] Health and Safety Code # 1645, as amended). I attest that I re-evaluated the patient just prior to the surgery and that there has been no change in the patient's H&P, except as documented below None: John Mata MD Mar 28, 2020 09:39
[2020-03-28] MEDS ORDERED: NS Irrig 1000ml ONE (10:00)
[2020-03-28] MEDS ORDERED: Sterile Water Irrig 1000ml IRRIG ONE (10:00)
--- NOTE | 2020-03-28 10:18 | NUR ---
RESPIRATORY NOTE: Called from surgery at [facility] patient and transport back from surgery to unit. Upon arrival I was notified that PT suffered critical desaturation during bronchoscopy and that he was now intubated. PT was received intubate with a 8.0 ETT @ 23cm lipline. manual ventilation was provided during transport to ICU. PT placed on ventilator upon arrival. ACVC 14, 600,100%, +5. Alarms are on and audible. ABG to follow. Will continue to closely monitor.
--- NOTE | 2020-03-28 10:22 | Anethesia Preoperative Eval ---
Anesthesia Pre-op PMH/ROS General Date of Evaluation: Mar 28, 2020 Time of Evaluation: 10:22 Anesthesiologist: [place] ASA Score: ASA 4 Mallampati Score Class I : Soft palate, uvula, fauces, pillars visible Class II: Soft palate, uvula, fauces visible Class III: Soft palate, base of uvula visible Class IV: Only hard plate visible Mallampati Classification: Class III Surgeon: Esperanza Diagnosis: Ventilatory Difficulty Surgical Procedure: Bilateral Bronchoscopy Anesthesia History: none Social History: current smoker Family History: no anesthesia problems Allergies: Coded Allergies: No Known Allergies (Unverified , 02/05/20) Medications: see eMAR Patient NPO?: Yes Past Medical History Cardiovascular: Reports: HTN Pulmonary: Reports: COPD - Covid Pneumonia Endocrine: Reports: DM Hematology/Immune: Reports: other - Sepsis Musculoskeletal/Integumentary: Reports: other - Malnutrition Other: obesity - BMI 36 Anesthesia Pre-op Phys. Exam Physician Exam Last Vital Signs Date Time Temp Pulse Resp B/P (MAP) Pulse Ox O2 Delivery O2 Flow Rate FiO2 03/28/20 08:19 88 03/28/20 08:00 Bi-pap 03/28/20 08:00 90 03/28/20 08:00 97.3 24 137/92 (107) 91 03/26/20 04:00 95.0 Constitutional: NAD Neurologic: CN 2-12 intact Cardiovascular: RRR Respiratory: CTA Gastrointestinal: S/NT/ND Airway Exam Mallampati Score: Class III MO: limited ROM: limited Teeth: missing, intact Anesthesia Pre-op A/P Labs Hematology Test 03/28/20 03:55 White Blood Count 9.8 K/UL (4.8-10.8) Red Blood Count 4.65 M/UL (4.70-6.10) L Hemoglobin 12.8 G/DL (14.2-18.0) L Hematocrit 40.8 % (42.0-52.0) L Mean Corpuscular Volume 88 FL (80-99) Mean Corpuscular Hemoglobin 27.6 PG (27.0-31.0) Mean Corpuscular Hemoglobin Concent 31.4 G/DL (32.0-36.0) L Red Cell Distribution Width 14.3 % (11.6-14.8) Platelet Count 254 K/UL (150-450) Mean Platelet Volume 6.5 FL (6.5-10.1) Neutrophils (%) (Auto) % (45.0-75.0) Lymphocytes (%) (Auto) % (20.0-45.0) Monocytes (%) (Auto) % (1.0-10.0) Eosinophils (%) (Auto) % (0.0-3.0) Basophils (%) (Auto) % (0.0-2.0) Differential Total Cells Counted 100 Neutrophils % (Manual) 74 % (45-75) Lymphocytes % (Manual) 6 % (20-45) L Monocytes % (Manual) 5 % (1-10) Eosinophils % (Manual) 0 % (0-3) Basophils % (Manual) 0 % (0-2) Band Neutrophils 15 % (0-8) H Platelet Estimate Adequate Platelet Morphology Normal Red Blood Cell Morphology Normal Chemistry Test 03/27/20 20:53 03/28/20 00:03 03/28/20 03:55 03/28/20 05:40 POC Whole Blood Glucose 149 MG/DL (74-106) H 139 MG/DL (74-106) H 137 MG/DL (74-106) H Sodium Level 136 MMOL/L (136-145) Potassium Level 5.1 MMOL/L (3.5-5.1) Chloride Level 97 MMOL/L (98-107) L Carbon Dioxide Level 29 MMOL/L (21-32) Anion Gap 10 mmol/L (5-15) Blood Urea Nitrogen 26 mg/dL (7-18) H Creatinine 0.7 MG/DL (0.55-1.30) Estimat Glomerular Filtration Rate > 60 mL/min (>60) Glucose Level 85 MG/DL (74-106) Uric Acid 1.6 MG/DL (2.6-7.2) L Calcium Level 8.5 MG/DL (8.5-10.1) Phosphorus Level 3.5 MG/DL (2.5-4.9) Magnesium Level 2.0 MG/DL (1.8-2.4) Total Bilirubin 0.4 MG/DL (0.2-1.0) Aspartate Amino Transf (AST/SGOT) 64 U/L (15-37) H Alanine Aminotransferase (ALT/SGPT) 291 U/L (12-78) H Alkaline Phosphatase 201 U/L (46-116) H C-Reactive Protein, Quantitative 1.6 mg/dL (0.00-0.90) H Pro-B-Type Natriuretic Peptide 276 pg/mL (0-125) H Total Protein 5.8 G/DL (6.4-8.2) L Albumin 2.3 G/DL (3.4-5.0) L Globulin 3.5 g/dL Albumin/Globulin Ratio 0.7 (1.0-2.7) L Vitamin D 25-Hydroxy Pending 25-Hydroxy Vitamin D2 Pending 25-Hydroxy Vitamin D3 Pending Test 03/28/20 08:53 POC Whole Blood Glucose Pending Risk Assessment & Plan Assessment: ASA 4 Plan: GA Status Change Before Surgery: No Pre-Antibiotics Drug: Jerry Saravia MD Mar 28, 2020 10:22
--- NOTE | 2020-03-28 10:52 | Anethesia Preoperative Eval ---
Anesthesia Pre-op PMH/ROS General Date of Evaluation: Mar 28, 2020 Time of Evaluation: 09:15 Anesthesiologist: Fredi ASA Score: ASA 3 Mallampati Score Class I : Soft palate, uvula, fauces, pillars visible Class II: Soft palate, uvula, fauces visible Class III: Soft palate, base of uvula visible Class IV: Only hard plate visible Mallampati Classification: Class III Surgeon: Taya Diagnosis: Covid pneumonia Surgical Procedure: Bronchoscopy Anesthesia History: none Social History: smoking - h/o Family History: no anesthesia problems Allergies: Coded Allergies: No Known Allergies (Unverified , 02/05/20) Medications: see eMAR Patient NPO?: Yes Past Medical History Cardiovascular: Reports: HTN; Denies: CAD, ID, valve dz, arrhythmia, other Pulmonary: Reports: other - respiratory failure; Denies: asthma, COPD, MONIE Gastrointestinal/Genitourinary: Reports: GERD; Denies: CRI, ESRD, other Neurologic/Psychiatric: Reports: depression/anxiety; Denies: dementia, CVA, TIA, other Endocrine: Reports: DM; Denies: hypothyroidism, steroids, other HEENT: Denies: cataract (L), cataract (R), glaucoma, [place] (L), [place] (R), other Hematology/Immune: Reports: anemia, bleeding disorder - anticoagulated; Denies: DVT, other Musculoskeletal/Integumentary: Denies: OA, RA, DJD, DDD, edema, other Other: obesity PMH Narrative: as above PSxH Narrative: see H&P Anesthesia Pre-op Phys. Exam Physician Exam Last Vital Signs Date Time Temp Pulse Resp B/P (MAP) Pulse Ox O2 Delivery O2 Flow Rate FiO2 03/28/20 08:19 88 03/28/20 08:00 Bi-pap 03/28/20 08:00 90 03/28/20 08:00 97.3 24 137/92 (107) 91 03/26/20 04:00 95.0 Constitutional: other - significant dyspnea at rest on cipap Neurologic: other - unable to ob taine Cardiovascular: RRR, other - tachicardic Respiratory: other - diminished breath sounds bilateraly, diffuse wheezing Gastrointestinal: other - obesity Airway Exam Mallampati Score: Class III MO: limited Neck: short stiff ROM: limited Teeth: missing Dentures: no upper, no lower Anesthesia Pre-op A/P Labs Hematology Test 03/28/20 03:55 White Blood Count 9.8 K/UL (4.8-10.8) Red Blood Count 4.65 M/UL (4.70-6.10) L Hemoglobin 12.8 G/DL (14.2-18.0) L Hematocrit 40.8 % (42.0-52.0) L Mean Corpuscular Volume 88 FL (80-99) Mean Corpuscular Hemoglobin 27.6 PG (27.0-31.0) Mean Corpuscular Hemoglobin Concent 31.4 G/DL (32.0-36.0) L Red Cell Distribution Width 14.3 % (11.6-14.8) Platelet Count 254 K/UL (150-450) Mean Platelet Volume 6.5 FL (6.5-10.1) Neutrophils (%) (Auto) % (45.0-75.0) Lymphocytes (%) (Auto) % (20.0-45.0) Monocytes (%) (Auto) % (1.0-10.0) Eosinophils (%) (Auto) % (0.0-3.0) Basophils (%) (Auto) % (0.0-2.0) Differential Total Cells Counted 100 Neutrophils % (Manual) 74 % (45-75) Lymphocytes % (Manual) 6 % (20-45) L Monocytes % (Manual) 5 % (1-10) Eosinophils % (Manual) 0 % (0-3) Basophils % (Manual) 0 % (0-2) Band Neutrophils 15 % (0-8) H Platelet Estimate Adequate Platelet Morphology Normal Red Blood Cell Morphology Normal Chemistry Test 03/27/20 20:53 03/28/20 00:03 03/28/20 03:55 03/28/20 05:40 POC Whole Blood Glucose 149 MG/DL (74-106) H 139 MG/DL (74-106) H 137 MG/DL (74-106) H Sodium Level 136 MMOL/L (136-145) Potassium Level 5.1 MMOL/L (3.5-5.1) Chloride Level 97 MMOL/L (98-107) L Carbon Dioxide Level 29 MMOL/L (21-32) Anion Gap 10 mmol/L (5-15) Blood Urea Nitrogen 26 mg/dL (7-18) H Creatinine 0.7 MG/DL (0.55-1.30) Estimat Glomerular Filtration Rate > 60 mL/min (>60) Glucose Level 85 MG/DL (74-106) Uric Acid 1.6 MG/DL (2.6-7.2) L Calcium Level 8.5 MG/DL (8.5-10.1) Phosphorus Level 3.5 MG/DL (2.5-4.9) Magnesium Level 2.0 MG/DL (1.8-2.4) Total Bilirubin 0.4 MG/DL (0.2-1.0) Aspartate Amino Transf (AST/SGOT) 64 U/L (15-37) H Alanine Aminotransferase (ALT/SGPT) 291 U/L (12-78) H Alkaline Phosphatase 201 U/L (46-116) H C-Reactive Protein, Quantitative 1.6 mg/dL (0.00-0.90) H Pro-B-Type Natriuretic Peptide 276 pg/mL (0-125) H Total Protein 5.8 G/DL (6.4-8.2) L Albumin 2.3 G/DL (3.4-5.0) L Globulin 3.5 g/dL Albumin/Globulin Ratio 0.7 (1.0-2.7) L Vitamin D 25-Hydroxy Pending 25-Hydroxy Vitamin D2 Pending 25-Hydroxy Vitamin D3 Pending Test 03/28/20 08:53 POC Whole Blood Glucose Pending Risk Assessment & Plan Assessment: ASA 3 Plan: GA with ETT possible ICU care postoperatively Status Change Before Surgery: No Pre-Antibiotics Drug: none Tony Rai MD Mar 28, 2020 10:52
--- NOTE | 2020-03-28 10:53 | Immediate Post-Op Evaluation ---
Immediate Post-Op Evalulation Immediate Post-Op Evalulation Procedure: bronchoscopy Date of Evaluation: Mar 28, 2020 Time of Evaluation: 10:52 IV Fluids: 200 Blood Products: none Estimated Blood Loss: min Urinary Output: none Blood Pressure Systolic: 148 Blood Pressure Diastolic: 76 Pulse Rate: 102 Respiratory Rate: 20 O2 Sat by Pulse Oximetry: 76 Temperature (Fahrenheit): 97.6 Pain Score (1-10): 1 Nausea: No Vomiting: No Patient Status: no response, ventilated, none Hydration Status: adequate Tony Rai MD Mar 28, 2020 10:53
--- NOTE | 2020-03-28 11:02 | NUR ---
NURSE NOTES: Dr. Mata called and message left for sedation orders as patient is beginning to move around and is responsive to voice. Radiology called for stat CXR and ABD Xray. Will be coming up. OGT and Brownlee placed. Restraints on due to patient moving around and unable to follow commands.
--- NOTE | 2020-03-28 11:15 | NUR ---
RADIOLOGY DEPT. CHEST FOR E/TT PLCMT AND ABDOMEN X-RAY N/GT PLCMT COMPLETED.-P.DYE
--- NOTE | 2020-03-28 11:18 | Pulmonology Progress Note ---
Subjective ROS Limited/Unobtainable: Yes Interval Events: Intubated this AM Constitutional: Denies: fever HEENT: Repors: no symptoms Respiratory: Reports: dry cough, shortness of breath Cardiovascular: Reports: no symptoms Gastrointestinal/Abdominal: Denies: nausea Psychiatric: Denies: depression Skin: Denies: rash Musculoskeletal: Denies: pain Allergies: Coded Allergies: No Known Allergies (Unverified , 02/05/20) Objective Last 24 Hour Vital Signs Date Time Temp Pulse Resp B/P (MAP) Pulse Ox O2 Delivery O2 Flow Rate FiO2 03/28/20 10:53 102 20 76 03/28/20 08:19 88 03/28/20 08:00 Bi-pap 03/28/20 08:00 90 03/28/20 08:00 97.3 70 24 137/92 (107) 91 03/28/20 04:00 Bi-pap 03/28/20 04:00 97.3 89 26 144/96 (112) 90 03/28/20 04:00 90 03/28/20 03:15 80 23 94 90 03/28/20 03:15 74 03/28/20 00:00 90 03/28/20 00:00 97.3 83 24 140/97 (111) 94 03/28/20 00:00 Bi-pap 03/27/20 23:05 82 22 93 90 03/27/20 23:00 79 03/27/20 20:00 90 03/27/20 20:00 69 03/27/20 20:00 97.3 82 20 139/103 (115) 94 03/27/20 20:00 Bi-pap 03/27/20 19:05 75 23 94 90 03/27/20 19:01 69 03/27/20 16:00 98.2 62 20 132/91 (105) 96 03/27/20 16:00 75 03/27/20 16:00 Bi-pap 03/27/20 16:00 95 03/27/20 15:20 78 22 95 90 03/27/20 12:00 78 03/27/20 12:00 95 03/27/20 12:00 98.0 87 23 140/92 (108) 93 03/27/20 12:00 Bi-pap Intake and Output 03/27/20 03/28/20 19:00 07:00 Intake Total 1564.45 ml Output Total 1800 ml 1800 ml Balance -1800 ml -235.55 ml IV Total 1564.45 ml Output Urine Total 1800 ml 1800 ml # Bowel Movements 3 General Appearance: WD/WN, no acute distress HEENT: normocephalic, atraumatic Respiratory: chest wall non-tender Cardiovascular: normal rate, regular rhythm Abdomen: normal bowel sounds, soft, non tender, other - obese Laboratory Tests 03/27/20 20:53: POC Whole Blood Glucose 149H 03/28/20 00:03: POC Whole Blood Glucose 139H 03/28/20 03:55: White Blood Count 9.8, Red Blood Count 4.65L, Hemoglobin 12.8L, Hematocrit 40.8L , Mean Corpuscular Volume 88, Mean Corpuscular Hemoglobin 27.6, Mean Corpuscular Hemoglobin Concent 31.4L, Red Cell Distribution Width 14.3, Platelet Count 254, Mean Platelet Volume 6.5, Neutrophils (%) (Auto) , Lymphocytes (%) (Auto) , Monocytes (%) (Auto) , Eosinophils (%) (Auto) , Basophils (%) (Auto) , Differential Total Cells Counted 100, Neutrophils % (Manual) 74, Lymphocytes % (Manual) 6L, Monocytes % (Manual) 5, Eosinophils % (Manual) 0, Basophils % (Manu al) 0, Band Neutrophils 15H, Platelet Estimate Adequate, Platelet Morphology Normal, Red Blood Cell Morphology Normal, Sodium Level 136, Potassium Level 5.1, Chloride Level 97L, Carbon Dioxide Level 29, Anion Gap 10, Blood Urea Nitrogen 26H, Creatinine 0.7, Estimat Glomerular Filtration Rate > 60, Glucose Level 85, Uric Acid 1.6L, Calcium Level 8.5, Phosphorus Level 3.5, Magnesium Level 2.0, Total Bilirubin 0.4, Aspartate Amino Transf (AST/SGOT) 64H, Alanine Aminotransferase (ALT/SGPT) 291H, Alkaline Phosphatase 201H, C-Reactive Protein, Quantitative 1.6H, Pro-B-Type Natriuretic Peptide 276H, Total Protein 5.8L, Albumin 2.3L, Globulin 3.5, Albumin/Globulin Ratio 0.7L, Vitamin D 25-Hydroxy [Pending], 25-Hydroxy Vitamin D2 [Pending], 25-Hydroxy Vitamin D3 [Pending] 03/28/20 05:40: POC Whole Blood Glucose 137H 03/28/20 08:53: POC Whole Blood Glucose [Pending] Current Medications Medications (Trade) Dose Ordered Sig/Dennis Route PRN Reason Start Time Stop Time Status Last Admin Dose Admin Acetaminophen (Tylenol) 650 mg Q4H PRN ORAL Mild Pain (Pain Scale 1-3) 03/09/20 12:00 04/08/20 11:59 Bisacodyl (Dulcolax) 10 mg HSPRN PRN RECTAL Constipation 02/05/20 13:15 05/05/20 13:14 Bisacodyl (Dulcolax) 10 mg Q12H PRN RECTAL Constipation 03/18/20 16:45 06/16/20 16:44 Chlorhexidine Gluconate (Marlen-Hex 2%) 1 applic DAILY TOPIC 03/29/20 09:00 06/27/20 08:59 UNV Clonidine HCl (Catapres TTS-2) 1 patch QWEEK TDERMAL 03/21/20 18:00 06/19/20 17:59 03/21/20 17:22 Dextrose 1,000 ml @ 0 mls/hr Q24H PRN IV PN interrupted or unavailable 03/09/20 20:00 04/08/20 19:59 Dextrose (Dextrose 50%) 25 ml Q30M PRN IV Hypoglycemia 03/10/20 00:00 06/08/20 00:00 Dextrose (Dextrose 50%) 50 ml Q30M PRN IV Hypoglycemia 03/10/20 00:00 06/08/20 00:00 Enoxaparin Sodium (Lovenox) 40 mg DAILY SUBQ 03/13/20 12:00 06/11/20 11:59 03/27/20 08:23 Fat Emulsion Intravenous 192 ml/Amino Acids/ Electrolytes/ Dextrose 1,992 ml @ 83 mls/hr Q24H IV 03/17/20 20:00 04/16/20 19:59 03/27/20 20:51 Furosemide (Lasix) 20 mg EVERY 8 HOURS IV 03/19/20 14:00 04/18/20 13:59 03/28/20 05:34 Hydralazine HCl (Apresoline) 10 mg Q6H PRN IV For High Blood Pressure 03/09/20 17:00 06/07/20 16:59 03/21/20 17:19 Insulin Aspart (NovoLOG) Q6HR SUBQ 03/10/20 00:00 06/08/20 00:00 03/26/20 13:25 Insulin Detemir (Levemir) 18 units Q12HR SUBQ 03/14/20 21:00 06/10/20 20:59 03/28/20 09:15 Lactulose (Cephulac) 20 gm THREE TIMES A DAY ORAL 03/08/20 13:00 04/07/20 12:59 03/26/20 09:33 Methylprednisolone Sodium Succinate (Solu-MEDROL) 40 mg EVERY 8 HOURS IVP 03/22/20 14:00 06/20/20 13:59 03/28/20 05:34 Pantoprazole (Protonix) 40 mg EVERY 12 HOURS ORAL 03/25/20 21:00 04/24/20 20:59 03/26/20 21:32 Polyethylene Glycol (Miralax) 17 gm BEDTIME ORAL 03/08/20 21:00 04/07/20 20:59 03/26/20 21:32 Trimethoprim/ Sulfamethoxazole 20 ml/Dextrose 570 ml @ 380 mls/hr [id number] BACTRIM IV 03/25/20 16:00 04/01/20 16:00 03/28/20 08:45 Vitamin D (Vitamin D) 5,000 unit DAILY ORAL 03/15/20 09:00 04/14/20 08:59 03/26/20 09:33 Assessment/Plan Assessment/Plan Assessment/Plan 1.COVID-19 pneumonia. - last COVID-19 test positive after two negative tests - CTA 02/05/2020 ground-glass and consolidating infiltrates in the dependent portions of both lower lobes and to lesser degree the upper lobes consistent with bilateral pneumonia. No evidence of pulmonary embolus. - CXR 02/17/2020 worsening bilateral infiltrates; Repeat CXR shows basilar linear densities - Discontinued Decadron, now on Solumedrol - s/p remdesivir -We will continue TPN - On Bactrim 2. DVT ppx - on lovenox 3. Hypertension - on hydralazine, - s/p norvasc 4. Leukocytosis; resolved - ID following 5. Gram negative zack UTI - s/p rocephin per ID recs - s/p rocephin, cefepime per ID 6. Elevated LFT - positive Hep C 7. Respiratory failure -Intubated this AM -Quick post intubation bronchoscopy showed clean airways upto level of sub bronchi - Oral care done and dried mucosal secretions removed John Mata MD Mar 28, 2020 11:18
--- NOTE | 2020-03-28 11:19 | NUR ---
NURSE NOTES: Called YENI Wilkinson to double check with Dr. Mata to order sedation for the patient. Patient is waking up and responses to voice when talked to (nods). Will continue to monitor. Will double check with doctors.
--- NOTE | 2020-03-28 11:51 | Diagnostic Imaging Report ---
Indication: Shortness of breath Technique: One view of the chest Comparison: 03/22/2020 Findings: Bilateral basilar infiltrates are unchanged. The heart size is normal. Left arm PICC remains Impression: Unchanged, over 6 days, findings as above.
[2020-03-28] MEDS ORDERED: propofoL 1,000mg/100ml 100 ML IV SCH (12:00)
--- NOTE | 2020-03-28 12:00 | NUR ---
NURSE NOTES: Propofol started at 5mcgs. patient is restless. will continue to monitor. will titrate propofol.
--- NOTE | 2020-03-28 12:07 | Diagnostic Imaging Report ---
Indication: Post intubation Technique: One view of the chest Comparison: 4 hours earlier Findings: Interim endotracheal intubation the endotracheal tube tip in good position approximately 4 cm above the sunny. Interim orogastric intubation, tip projecting at the level of gastric body antrum junction. Allowing for slightly improved aeration on the current study, bilateral infiltrates are unchanged. Left arm PICC remains Impression: Satisfactory endotracheal and orogastric intubation. ICU nurse notified at the time of interpretation
--- NOTE | 2020-03-28 12:12 | Diagnostic Imaging Report ---
Indication: Post nasogastric tube placement Technique: Supine view of the abdomen Comparison: none Findings: There is a nasogastric or orogastric tube in place, tip projected at the level of the gastric antrum body junction. Bowel gas pattern is unremarkable. Impression: Satisfactory feeding tube placement
--- NOTE | 2020-03-28 12:49 | NUR ---
CASE MANAGEMENT:REVIEW 03/28/20 SI: COVID PNA. UTI DESATURATED TO 76% ON BIPAP 97.3 70 24 198/112 INTUBATED AND PLACED ON VENT H/H-12.8/40.8 BUN+26 IS: TPN/IL @ 83/HR PROPOFOL GTT FENTANYL GTT IV SOLUMEDROL Q8HRS IV BACTRIM Q8HRS IV LASIX Q8HR LOVENOX SQ QD : TRANSFERRED TO ICU
--- NOTE | 2020-03-28 13:01 | NUR ---
INSURANCE CLINCALS AND REVIEW FAXED TO [employer] T: [phone] #1 F: [phone] AND [employer] IN[employer] ARCHITECT:JACQUELINE JAMES [phone] F: [phone]
--- NOTE | 2020-03-28 13:17 | NUR ---
RD ASSESSMENT & RECOMMENDATIONS SEE CARE ACTIVITY FOR COMPLETE ASSESSMENT DAILY ESTIMATED NEEDS: Needs based on Critical care, wound 81kg abw 22-28 kcals/kg 7704-8892 total kcals 1.25-1.5 g protein/kg 101-122 g total protein 25-30 mL/kg 3524-0572 total fluid mLs NUTRITION DIAGNOSIS: * Inadequate oral intake R/T clinical and respiratory status as evidenced by COVID-19 ++, on continuous BIPAP, prolonged meal refusals, pt is now on TPN, pt is now orally intubated (03/28), OGT ordered. * Decreased sodium and fat needs r/t HTN and obesity as evidenced by pt w/ cardiac history, elev BP (159/98-> now improved, on BP meds and diuretics), BMI >30, obese per guidelines. (INACTIVE) CURRENT DIET: On TPN ENTERAL NUTRITION RECOMMENDATIONS: Glucerna 1.5 @ 50ml/hr x 24 hrs to provide 1200ml, 1800kcal, 99g prot, 926ml free water * W/ GI access, initiate Glucerna 1.5 @ 10ml/hr x 6hrs * Advance 10ml q 4-6 hrs as tolerated to goal. * HOB over 30 degrees/ water flush per MD * Add Prosource 1pkt QD (additional 11g prot) once TF well tolerated @ goal to better meet est prot needs. ------ With Propofol running @ current rate of 3.266ml/hr (86kcal), TF @ goal + Propofol does not exceed needs. PARENTERAL NUTRITION RECOMMENDATIONS: D/AA Rate: 75 IL Rate: 8 Total Rate: 83 Volume: 1992 % Dextrose: 15 % AA: 5.5 Energy (kcals/kg): 1698 Protein (g/kg protein): 99 Nonprotein KCALS: 1302 GIR (mg CHO/kg/min): 2.3 % Fat KCALS: 22 NCP: N Ratio: 82.4:1 TPN Comment: ONCE OGT IN PLACE, REC TO WEAN OFF TPN AND START OGT FEEDS, SEE ABOVE TF RECOMMENDATION If without GI access and TPN must run, rec to continue: - D15% + AA5.5% @75ml/hr with IL20% @8ml/hr- all 3:1, total of 83ml/hr -> Check lytes daily, replete as needed -> Monitor BGs, LFTs, and Triglyceride closely w/ TPN -> TPN @ goal provides 91% est kcal and 99% est prot needs ADDITIONAL RECOMMENDATIONS: 1) Maintain calibrated bedscale wts 2) Obtain HgA1C for eval 3) W/ OGT insertion, rec OGT feeds and wean off and DC TPN -> See above TF rec 4) W/ TPN: monitor LFT's, BGs, and lipid panel, need for formulary change 5) Monitor lytes, replete as needed .
--- NOTE | 2020-03-28 13:43 | NUR ---
NURSE NOTES: Doctor Esperanza changed sedation order from Propofol to Fentanyl. Charge Nurse said to finish propofol before starting fentanyl. Will continue to monitor.
[2020-03-28] MEDS ORDERED: Versed 50mg/NS 100ml 100 ML IV PRN (14:30)
--- NOTE | 2020-03-28 14:30 | NUR ---
NURSE NOTES: Patient maxed on propofol 50 mcgs. Patient is still not on -2 RAAS score. Will finish bottle of propofol and start on Fentanyl. Will continue to be monitored.
--- NOTE | 2020-03-28 14:59 | NUR ---
NURSE NOTES: Fentanyl on hold. Will infuse propofol and once done, Fentanyl will be started.
[2020-03-28] MEDS: fentaNYL 2500mcg/NS 250ml 250 ML IV SCH (16:01)
--- NOTE | 2020-03-28 17:16 | Cardiology Progress Note ---
Assessment/Plan Assessment/Plan Acute covid 19 pneumonia hypoxemia infiltrate bilat bacteremia hypernatremia / hyponatremia mild abn lfts tachy psot intubateion ekg yest sinus no st t wave abn will repeat will give soem bb to hlpt with tachy and htn hypoxemia unlikely cardiac related his hypoxemia became worse today and he ended up beign intubated before hsi bronch off anticoagulation except for dvt ppx dose continue supportive care not taking juan tomi by mahogany villeda been on tpn an on iv meds echo reviewed today shtill shwoee normla lv fucntion not vavle pathology cxr noted no change still with bilat infiltrate on diuretic already since is on tpn to prevent fluid overload previously has had higher diuretic to the point of hypernatremia to see if keeping dry would help his respiratory status but not successful he was on full dose heparin previously as well now on dvt ppx bronch d/w dr fry consider transfer to higher level tachy may be related to the fact taht his sedative are beign readjusted will uses prn labaetolol d/w rn Subjective Subjective pt in covid 19 isolation intubated before bronch now on a vent Objective Last 24 Hour Vital Signs Date Time Temp Pulse Resp B/P (MAP) Pulse Ox O2 Delivery O2 Flow Rate FiO2 03/28/20 16:01 30 142/98 Mechanical Ventilator 100 03/28/20 16:00 139 30 177/113 (134) 94 03/28/20 16:00 100 03/28/20 16:00 138 03/28/20 15:00 138 24 148/90 (109) 88 03/28/20 14:00 137 26 141/100 (114) 93 03/28/20 13:38 27 157/107 Mechanical Ventilator 100 03/28/20 13:23 32 176/125 Mechanical Ventilator 100 03/28/20 13:08 24 168/106 Mechanical Ventilator 100 03/28/20 13:00 129 26 176/110 (132) 93 03/28/20 12:53 24 172/106 Mechanical Ventilator 100 03/28/20 12:38 26 176/110 Mechanical Ventilator 100 03/28/20 12:23 21 169/108 Mechanical Ventilator 100 03/28/20 12:08 27 198/112 Mechanical Ventilator 100 03/28/20 12:00 123 25 191/117 (141) 90 03/28/20 12:00 Bi-pap 03/28/20 11:32 100 03/28/20 11:32 119 03/28/20 10:53 102 20 76 03/28/20 10:49 115 03/28/20 08:19 88 03/28/20 08:00 Bi-pap 03/28/20 08:00 90 03/28/20 08:00 97.3 70 24 137/92 (107) 91 03/28/20 04:00 Bi-pap 03/28/20 04:00 97.3 89 26 144/96 (112) 90 03/28/20 04:00 90 03/28/20 03:15 80 23 94 90 03/28/20 03:15 74 03/28/20 00:00 90 03/28/20 00:00 97.3 83 24 140/97 (111) 94 03/28/20 00:00 Bi-pap 03/27/20 23:05 82 22 93 90 03/27/20 23:00 79 03/27/20 20:00 90 03/27/20 20:00 69 03/27/20 20:00 97.3 82 20 139/103 (115) 94 03/27/20 20:00 Bi-pap 03/27/20 19:05 75 23 94 90 03/27/20 19:01 69 General Appearance: no apparent distress, on vent, patient on isolation, isolation precautions Intake and Output 03/27/20 03/28/20 19:00 07:00 Intake Total 1564.45 ml Output Total 1800 ml 1800 ml Balance -1800 ml -235.55 ml IV Total 1564.45 ml Output Urine Total 1800 ml 1800 ml # Bowel Movements 3 Laboratory Tests Test 03/27/20 20:53 03/28/20 00:03 03/28/20 03:55 03/28/20 05:40 POC Whole Blood Glucose 149 MG/DL (74-106) H 139 MG/DL (74-106) H 137 MG/DL (74-106) H White Blood Count 9.8 K/UL (4.8-10.8) Red Blood Count 4.65 M/UL (4.70-6.10) L Hemoglobin 12.8 G/DL (14.2-18.0) L Hematocrit 40.8 % (42.0-52.0) L Mean Corpuscular Volume 88 FL (80-99) Mean Corpuscular Hemoglobin 27.6 PG (27.0-31.0) Mean Corpuscular Hemoglobin Concent 31.4 G/DL (32.0-36.0) L Red Cell Distribution Width 14.3 % (11.6-14.8) Platelet Count 254 K/UL (150-450) Mean Platelet Volume 6.5 FL (6.5-10.1) Neutrophils (%) (Auto) % (45.0-75.0) Lymphocytes (%) (Auto) % (20.0-45.0) Monocytes (%) (Auto) % (1.0-10.0) Eosinophils (%) (Auto) % (0.0-3.0) Basophils (%) (Auto) % (0.0-2.0) Differential Total Cells Counted 100 Neutrophils % (Manual) 74 % (45-75) Lymphocytes % (Manual) 6 % (20-45) L Monocytes % (Manual) 5 % (1-10) Eosinophils % (Manual) 0 % (0-3) Basophils % (Manual) 0 % (0-2) Band Neutrophils 15 % (0-8) H Platelet Estimate Adequate Platelet Morphology Normal Red Blood Cell Morphology Normal Sodium Level 136 MMOL/L (136-145) Potassium Level 5.1 MMOL/L (3.5-5.1) Chloride Level 97 MMOL/L (98-107) L Carbon Dioxide Level 29 MMOL/L (21-32) Anion Gap 10 mmol/L (5-15) Blood Urea Nitrogen 26 mg/dL (7-18) H Creatinine 0.7 MG/DL (0.55-1.30) Estimat Glomerular Filtration Rate > 60 mL/min (>60) Glucose Level 85 MG/DL (74-106) Uric Acid 1.6 MG/DL (2.6-7.2) L Calcium Level 8.5 MG/DL (8.5-10.1) Phosphorus Level 3.5 MG/DL (2.5-4.9) Magnesium Level 2.0 MG/DL (1.8-2.4) Total Bilirubin 0.4 MG/DL (0.2-1.0) Aspartate Amino Transf (AST/SGOT) 64 U/L (15-37) H Alanine Aminotransferase (ALT/SGPT) 291 U/L (12-78) H Alkaline Phosphatase 201 U/L (46-116) H C-Reactive Protein, Quantitative 1.6 mg/dL (0.00-0.90) H Pro-B-Type Natriuretic Peptide 276 pg/mL (0-125) H Total Protein 5.8 G/DL (6.4-8.2) L Albumin 2.3 G/DL (3.4-5.0) L Globulin 3.5 g/dL Albumin/Globulin Ratio 0.7 (1.0-2.7) L Triglycerides Level 157 MG/DL (30-150) H Vitamin D 25-Hydroxy Pending 25-Hydroxy Vitamin D2 Pending 25-Hydroxy Vitamin D3 Pending Test 03/28/20 08:53 POC Whole Blood Glucose Pending Objective pt in covid 19 isoaltion with acute infection Respiratory/Chest: normal breath sounds, no respiratory distress, no accessory muscle use, crackles/rales - less , rhonchi - bilaterally - less Cardiovascular: normal rate, regular rhythm, no gallop/murmur Abdomen: normal bowel sounds, soft, non tender, no organomegaly, non distended Extremities: no cyanosis Manan Awan MD Mar 28, 2020 17:16
--- NOTE | 2020-03-28 17:34 | NUR ---
RESPIRATORY NOTE: PT was transported to surgery for bronchoscopy at this time. He is being ventilated with current settings via BiPaP with O2 cylinder. All vs WNL during transport. Will wait for surgery to call me to transport patient back to [facility]. Addendum: 03/28/20 at 1740 by QUINN NEGRON RT Time inserted in error: Correct time of transport to surgery was 0930.
--- NOTE | 2020-03-28 18:00 | NUR ---
NURSE NOTES: bed bath offered to patient but patient resisted. offered to changed chucks but the patient did not want to. wiped face and oral care provided. will endorse to the next shift nurse.
--- NOTE | 2020-03-28 19:21 | NUR ---
NURSE HAND-OFF REPORT: Latest Vital Signs: Temperature 98.6 , Pulse 126 , B/P 132 /84 , Respiratory Rate 44 , O2 SAT 93 , Mechanical Ventilator, O2 Flow Rate . Vital Sign Comment: stable EKG Rhythm: Sinus Tachycardia Rhythm change?: N Notified?: N Response: N Latest Hassan Fall Score: 45 Fall Risk: High Risk Safety Measures: Call light Within Reach, Bed Alarm Zone 1, Side Rails Side Rails x3, Bed position Low and Locked. Fall Precautions: Yellow Socks Yellow Gown Door Sign Patient Fall Education Report given to PRIYANKA Connor.
--- NOTE | 2020-03-28 19:32 | NUR ---
NURSE NOTES: Report received from PRIYANKA Leahy. Observed pt lying in the bed, drowsy at this time. ST noted with HR of 120s. ETT 8.0, 23cm at lip; AC 14/600/100%/PEEP 5, saturating at 90%. OGT noted, npo at this time. L UA double lumen noted, TPN running at 83cc/hr. Fentanyl at 120mcg. Bed in the lowest position. Side rails up x3. Will continue to monitor.
[2020-03-28] MEDS: TPN IV SCH (20:25)
[2020-03-28] MEDS: FAT EMULSION 20% IV SCH (20:25)
[2020-03-28] MEDS: Miralax 17gm pkt ORAL SCH (20:26)
--- NOTE | 2020-03-28 21:30 | NUR ---
NURSE NOTES: Noted pt temperature of 100.4, prn given. Cooling measures done. Will continue to monitor.
--- NOTE | 2020-03-28 23:38 | NUR ---
NURSE NOTES: No acute change noted at this time. Noted labored breathing, AC 14/600/100%/PEEP5, saturating at 96%. ST noted. Will continue to monitor.
[2020-03-29] VITALS (24 sets, daily range): BP systolic 83–133; BP diastolic 55–90
--- NOTE | 2020-03-29 02:52 | NUR ---
NURSE NOTES: Noted dark brown residual from OGT, > 200cc noted; left a message to MD, awaiting for call back. ST noted. Tolerating vent setting, saturating at 95% at this time. Will continue to monitor.
--- NOTE | 2020-03-29 04:24 | NUR ---
NURSE NOTES: Bed bath given. Noted pt desaturating to 80s when lying flat, put him back on semi-fowlers, saturating at 95% at this time. Will continue to monitor.
[2020-03-29 05:11] LABS: HEMOGLOBIN 12.7 G/DL (14.2-18.0); MEAN CORPUSCULAR VOLUME 89 FL (80-99); PLATELET COUNT 261 K/UL (150-450); RED CELL DISTRIBUTION WIDTH 14.5 % (11.6-14.8); WHITE BLOOD COUNT 17.8 K/UL (4.8-10.8)
[2020-03-29 05:41] LABS: ALANINE AMINOTRANSFERASE 287 U/L (12-78); ALBUMIN 2.4 G/DL (3.4-5.0); ALBUMIN/GLOBULIN RATIO 0.6 (1.0-2.7); ALKALINE PHOSPHATASE 253 U/L (46-116); ANION GAP 4 mmol/L (5-15); ASPARTATE AMINO TRANSFERASE 91 U/L (15-37); BILIRUBIN,TOTAL 0.6 MG/DL (0.2-1.0); BLOOD UREA NITROGEN 34 mg/dL (7-18); CALCIUM 8.1 MG/DL (8.5-10.1); CARBON DIOXIDE 35 MMOL/L (21-32); CHLORIDE 93 MMOL/L (98-107); PHOSPHORUS 4.2 MG/DL (2.5-4.9); POTASSIUM 4.6 MMOL/L (3.5-5.1); SODIUM 132 MMOL/L (136-145)
[2020-03-29] MEDS: Solu-MEDROL 40mg Inj IVP SCH ×3 (06:01→21:05)
[2020-03-29] MEDS: NovoLOG Insulin Flexpen SUBQ SCH ×3 (06:03→18:00)
--- NOTE | 2020-03-29 06:37 | NUR ---
CASE MANAGEMENT:REVIEW 03/29/20 SI: COVID PNA. UTI. RESP FAILURE~INTUBATED 99.9 116 30 123/80 95% ON VENT SUPPORT W/100% FIO2 WBC+17.8 H/H-12.7/40.0 CO2+35 BUN+34 AST/ALT+91/287 IS: TPN/IL @ 83/HR PROPOFOL GTT FENTANYL GTT IV SOLUMEDROL 40MG Q8HRS IV BACTRIM Q8HRS IV LASIX Q8HR LOVENOX SQ QD : TRANSFERRED TO ICU
--- NOTE | 2020-03-29 06:37 | NUR ---
NURSE NOTES: Noted pt having fever of 100.5, prn med given, ice packs applied. Will continue to monitor.
--- NOTE | 2020-03-29 07:11 | NUR ---
NURSE HAND-OFF REPORT: Noted pt having fever, prn given, cooling measures done. Latest Vital Signs: Temperature 100.0 , Pulse 115 , B/P 122 /73 , Respiratory Rate 17 , O2 SAT 95 , Mechanical Ventilator, O2 Flow Rate . Vital Sign Comment: [] EKG Rhythm: Sinus Tachycardia Rhythm change?: N Notified?: Courtney Paige MD Response: Message left await call Latest Hassan Fall Score: 45 Fall Risk: High Risk Safety Measures: Call light Within Reach, Bed Alarm Zone 1, Side Rails Side Rails x3, Bed position Low and Locked. Fall Precautions: Yellow Socks Yellow Gown Door Sign Patient Fall Education Report given to PRIYANKA Leahy.
--- NOTE | 2020-03-29 07:20 | NUR ---
RESPIRATORY NOTE: PT received on AC/VC: 14, 600, 100%, +5. Alarms are on and audible. Vent circuit is secure and out of the way. Airway is secure and patent. No s/s of respiratory distress noted at this time. Pt is sleeping but will arouse and respond by nodding if asked questions. Will continue to closely monitor.
--- NOTE | 2020-03-29 07:52 | NUR ---
NURSE NOTES: Received report from PRIYANKA Connor. Patient is on bed, no signs of grimacing or distress noted. Currently sedated with Fentanyl at 130 mcgs, tolerating well. On ETT 8.0, 23 cm on lip line with settings of AC 14, TV 600, PEEP 5, FiO2 100%, tolerating well, currently saturating at 96%. Patient has an OGT for meds. With a joseph catheter, patent, intact, and draining straw colored urine. Patient with a WAYNE double lumen running TPN at 83 mL/hr, and fentanyl at 130 mcgs. HOB elevated, bed on lowest position, locked, side rails up. Will continue to monitor. Will continue plan of care.
--- NOTE | 2020-03-29 08:00 | NUR ---
RESPIRATORY NOTE: ABG drawn. Results given to Britton MATHEW. who will inform
[2020-03-29] MEDS: Trimethoprim/Sulfamethoxazole 20 ML in D5W 500ml 550 ML IV SCH (08:31)
[2020-03-29] MEDS: Vitamin D 1000 units Tab ORAL SCH (08:31)
[2020-03-29] MEDS: Lactulose 20gm/30ml UDC ORAL SCH ×3 (08:31→18:12)
[2020-03-29] MEDS: Enoxaparin 40mg Inj SUBQ SCH (08:34)
--- NOTE | 2020-03-29 08:42 | General Progress Note ---
Subjective ROS Limited/Unobtainable: No Allergies: Coded Allergies: No Known Allergies (Unverified , 02/05/20) Objective Last 24 Hour Vital Signs Date Time Temp Pulse Resp B/P (MAP) Pulse Ox O2 Delivery O2 Flow Rate FiO2 03/29/20 07:00 17 122/73 Mechanical Ventilator 100 03/29/20 07:00 115 17 122/73 (89) 95 03/29/20 06:41 100.0 03/29/20 06:00 17 123/80 Mechanical Ventilator 100 03/29/20 06:00 116 30 117/69 (85) 95 03/29/20 05:00 22 124/70 Mechanical Ventilator 100 03/29/20 05:00 114 32 115/66 (82) 95 03/29/20 04:00 112 03/29/20 04:00 34 109/65 Mechanical Ventilator 100 03/29/20 04:00 99.0 112 33 110/66 (81) 94 03/29/20 04:00 Mechanical Ventilator 03/29/20 04:00 100 03/29/20 03:20 114 17 100 03/29/20 03:00 112 31 130/75 (93) 95 03/29/20 03:00 31 119/81 Mechanical Ventilator 95 03/29/20 02:00 31 122/76 Mechanical Ventilator 100 03/29/20 02:00 113 29 123/74 (90) 96 03/29/20 01:00 119 17 122/76 (91) 97 03/29/20 01:00 18 122/76 Mechanical Ventilator 100 03/29/20 00:00 Mechanical Ventilator 03/29/20 00:00 100 03/29/20 00:00 20 122/78 Mechanical Ventilator 100 03/29/20 00:00 121 03/29/20 00:00 99.9 120 38 117/81 (93) 96 03/28/20 23:20 121 19 100 03/28/20 23:00 37 129/80 Mechanical Ventilator 100 03/28/20 23:00 122 36 127/81 (96) 96 03/28/20 22:00 37 118/76 Mechanical Ventilator 100 03/28/20 22:00 99.8 126 34 120/71 (87) 96 03/28/20 21:41 99.8 03/28/20 21:00 100.4 127 45 120/74 (89) 95 03/28/20 21:00 44 120/80 Mechanical Ventilator 100 03/28/20 20:30 43 120/80 Mechanical Ventilator 100 03/28/20 20:15 45 129/79 Mechanical Ventilator 100 03/28/20 20:00 Mechanical Ventilator 03/28/20 20:00 127 03/28/20 20:00 41 125/80 Mechanical Ventilator 100 03/28/20 20:00 127 41 125/88 (100) 93 03/28/20 20:00 100 03/28/20 19:20 126 24 100 03/28/20 19:00 44 132/84 Mechanical Ventilator 100 03/28/20 19:00 126 34 131/83 (99) 93 03/28/20 18:45 39 135/84 Mechanical Ventilator 100 03/28/20 18:30 41 139/88 Mechanical Ventilator 100 03/28/20 18:16 145/90 03/28/20 18:15 26 135/88 Mechanical Ventilator 100 03/28/20 18:00 28 145/90 Mechanical Ventilator 100 03/28/20 18:00 127 24 145/90 (108) 90 03/28/20 17:45 25 158/95 Mechanical Ventilator 100 03/28/20 17:30 35 162/102 Mechanical Ventilator 100 03/28/20 17:15 35 165/102 Mechanical Ventilator 100 03/28/20 17:00 98.6 135 28 174/111 (132) 91 03/28/20 17:00 35 169/104 Mechanical Ventilator 100 03/28/20 16:45 32 173/104 Mechanical Ventilator 100 03/28/20 16:30 32 177/113 Mechanical Ventilator 100 03/28/20 16:15 33 188/125 Mechanical Ventilator 100 03/28/20 16:01 30 142/98 Mechanical Ventilator 100 03/28/20 16:00 Mechanical Ventilator 03/28/20 16:00 139 30 177/113 (134) 94 03/28/20 16:00 100 03/28/20 16:00 138 03/28/20 15:21 134 23 100 03/28/20 15:00 138 24 148/90 (109) 88 03/28/20 14:00 137 26 141/100 (114) 93 03/28/20 13:38 27 157/107 Mechanical Ventilator 100 03/28/20 13:23 32 176/125 Mechanical Ventilator 100 03/28/20 13:08 24 168/106 Mechanical Ventilator 100 03/28/20 13:00 129 26 176/110 (132) 93 03/28/20 12:53 24 172/106 Mechanical Ventilator 100 03/28/20 12:47 130 20 100 03/28/20 12:38 26 176/110 Mechanical Ventilator 100 03/28/20 12:23 21 169/108 Mechanical Ventilator 100 03/28/20 12:08 27 198/112 Mechanical Ventilator 100 03/28/20 12:00 123 25 191/117 (141) 90 03/28/20 12:00 Bi-pap 03/28/20 11:32 100 03/28/20 11:32 119 03/28/20 10:53 102 20 76 03/28/20 10:49 115 03/28/20 10:30 116 14 100 03/28/20 10:30 116 14 82 Mechanical Ventilator 100 Intake and Output 03/28/20 03/29/20 19:00 07:00 Intake Total 2332.50 ml 154.75 ml Output Total 300 ml 640 ml Balance 2032.50 ml -485.25 ml Free Water 260 ml IV Total 2072.50 ml 154.75 ml Output Urine Total 300 ml 640 ml Laboratory Tests 03/28/20 08:53: POC Whole Blood Glucose [Pending] 03/28/20 16:48: Arterial Blood pH 7.208*L, Arterial Blood Partial Pressure CO2 86.0*H, Arterial Blood Partial Pressure O2 78.2, Arterial Blood HCO3 33.5H, Arterial Blood Oxygen Saturation 93.1L, Arterial Blood Base Excess 2.6H, Shemar Test Positive 03/29/20 04:30: White Blood Count 17.8#H, Red Blood Count 4.50L, Hemoglobin 12.7L, Hematocrit 40.0L, Mean Corpuscular Volume 89, Mean Corpuscular Hemoglobin 28.3, Mean Corpuscular Hemoglobin Concent 31.8L, Red Cell Distribution Width 14.5, Platelet Count 261, Mean Platelet Volume 6.6, Neutrophils (%) (Auto) , Lymphocytes (%) (Auto) , Monocytes (%) (Auto) , Eosinophils (%) (Auto) , Basophils (%) (Auto) , Differential Total Cells Counted 100, Neutrophils % (Manual) 86H, Lymphocytes % (Manual) 7L, Monocytes % (Manual) 7, Eosinophils % (Manual) 0, Basophils % (Manual) 0, Band Neutrophils 0, Platelet Estimate Adequate, Platelet Morphology Normal, Hypochromasia 1+, Anisocytosis 1+, Stomatocytes Occasional, Sodium Level 132L, Potassium Level 4.6, Chloride Level 93L, Carbon Dioxide Level 35H, Anion Gap 4L, Blood Urea Nitrogen 34H, Creatinine 1.0, Estimat Glomerular Filtration Rate > 60, Glucose Level 153H, Uric Acid 2.8, Calcium Level 8.1L, Phosphorus Level 4.2, Magnesium Level 1.9, Total Bilirubin 0.6, Aspartate Amino Transf (AST/SGOT) 91H, Alanine Aminotransferase (ALT/SGPT) 287H, Alkaline Phosphatase 253H, Total Protein 6.2L, Albumin 2.4L, Globulin 3.8, Albumin/Globulin Ratio 0.6L 03/29/20 08:00: Arterial Blood pH 7.236*L, Arterial Blood Partial Pressure CO2 90.8*H, Arterial Blood Partial Pressure O2 75.1, Arterial Blood HCO3 37.7H, Arterial Blood Oxygen Saturation 90.8L, Arterial Blood Base Excess 6.4H, Shemar Test Positive Height (Feet): 5 Height (Inches): 10.00 Weight (Pounds): 240 General Appearance: no apparent distress EENT: normal ENT inspection Neck: supple Cardiovascular: normal rate Respiratory/Chest: decreased breath sounds Abdomen: normal bowel sounds, non tender, soft Extremities: non-tender Assessment/Plan Status: stable, progressing Assessment/Plan: covid + on BIPAP DM HTN FTT constipation hep c + but neg RNA pending possible bronchoscopy for today intubated insert NGT Add reglan start NGTF Da Quintero MD Mar 29, 2020 08:42
[2020-03-29] MEDS ORDERED: Dyna-Hex 2% Top Sol 2oz TOPIC SCH (09:00)
[2020-03-29] MEDS: Metoclopramide 10mg/2ml Inj IVP SCH ×3 (09:17→21:06)
[2020-03-29] MEDS: Levemir Flexpen SUBQ SCH ×2 (09:18→21:00)
--- NOTE | 2020-03-29 09:40 | NUR ---
RD ASSESSMENT & RECOMMENDATIONS SEE CARE ACTIVITY FOR COMPLETE ASSESSMENT DAILY ESTIMATED NEEDS: Needs based on Critical care, wound 81kg abw 22-28 kcals/kg 3847-4069 total kcals 1.25-1.5 g protein/kg 101-122 g total protein 25-30 mL/kg 0840-1830 total fluid mLs NUTRITION DIAGNOSIS: * Inadequate oral intake R/T clinical and respiratory status as evidenced by COVID-19 ++, on continuous BIPAP, prolonged meal refusals, pt is now on TPN, pt is now orally intubated (03/28), OGT ordered. * Decreased sodium and fat needs r/t HTN and obesity as evidenced by pt w/ cardiac history, elev BP (159/98-> now improved, on BP meds and diuretics), BMI >30, obese per guidelines. (INACTIVE) CURRENT TF: NOW ORDERED-> Glucerna 1.5 goal of 50 ENTERAL NUTRITION RECOMMENDATIONS: Glucerna 1.5 @ 50ml/hr x 24 hrs to provide 1200ml, 1800kcal, 99g prot, 926ml free water * W/ GI access, initiate Glucerna 1.5 @ 10ml/hr x 6hrs * Advance 10ml q 4-6 hrs as tolerated to goal. * HOB over 30 degrees/ water flush per MD * Add Prosource 1pkt QD (additional 11g prot) once TF well tolerated @ goal to better meet est prot needs. ------ With Propofol running @ current rate of 3.266ml/hr (86kcal), TF @ goal + Propofol does not exceed needs. PARENTERAL NUTRITION RECOMMENDATIONS: TPN Comment: ONCE OGT IN PLACE, REC TO WEAN OFF TPN AND START OGT FEEDS, SEE ABOVE TF RECOMMENDATION --- If without GI access and TPN must run, rec to continue: - D15% + AA5.5% @75ml/hr with IL20% @8ml/hr- all 3:1, total of 83ml/hr -> Check lytes daily, replete as needed -> Monitor BGs, LFTs, and Triglyceride closely w/ TPN -> TPN @ goal provides 91% est kcal and 99% est prot needs ADDITIONAL RECOMMENDATIONS: 1) Maintain calibrated bedscale wts 2) Obtain HgA1C for eval 3) W/ OGT insertion, rec OGT feeds and wean off and DC TPN -> See above TF rec 4) W/ TPN: monitor LFT's, BGs, and lipid panel, need for formulary change 5) Monitor lytes, replete as needed .
--- NOTE | 2020-03-29 09:59 | NUR ---
RADIOLOGY DEPT., CHEST X-RAY DONE.-P.DYE
--- NOTE | 2020-03-29 10:20 | NUR ---
NURSE NOTES: Dr. Mata came at bed side. Ordered new ventilator settings of TV 750 and AC of 18. Ordered new vent settings and ordered ABG at 11:30. Will update RT. Will continue plan of care.
--- NOTE | 2020-03-29 10:20 | NUR ---
RESPIRATORY NOTE: Per Dr Mata RR increased to 18 and Vt increased to 750. Toncristiane RN aware that changes were made. ABG to follow in an hour.
--- NOTE | 2020-03-29 10:24 | Pulmonology Progress Note ---
Subjective ROS Limited/Unobtainable: No Interval Events: Intubated 03/28/20 Constitutional: Denies: fever HEENT: Repors: no symptoms Respiratory: Reports: dry cough, shortness of breath Cardiovascular: Reports: no symptoms Gastrointestinal/Abdominal: Denies: nausea Psychiatric: Denies: depression Skin: Denies: rash Musculoskeletal: Denies: pain Allergies: Coded Allergies: No Known Allergies (Unverified , 02/05/20) Objective Last 24 Hour Vital Signs Date Time Temp Pulse Resp B/P (MAP) Pulse Ox O2 Delivery O2 Flow Rate FiO2 03/29/20 09:00 117 16 119/74 (89) 95 03/29/20 08:08 117 03/29/20 08:00 Mechanical Ventilator 03/29/20 08:00 116 19 131/83 (99) 95 03/29/20 08:00 100 03/29/20 07:20 116 16 100 03/29/20 07:00 17 122/73 Mechanical Ventilator 100 03/29/20 07:00 115 17 122/73 (89) 95 03/29/20 06:41 100.0 03/29/20 06:00 17 123/80 Mechanical Ventilator 100 03/29/20 06:00 116 30 117/69 (85) 95 03/29/20 05:00 22 124/70 Mechanical Ventilator 100 03/29/20 05:00 114 32 115/66 (82) 95 03/29/20 04:00 112 03/29/20 04:00 34 109/65 Mechanical Ventilator 100 03/29/20 04:00 99.0 112 33 110/66 (81) 94 03/29/20 04:00 Mechanical Ventilator 03/29/20 04:00 100 03/29/20 03:20 114 17 100 03/29/20 03:00 112 31 130/75 (93) 95 03/29/20 03:00 31 119/81 Mechanical Ventilator 95 03/29/20 02:00 31 122/76 Mechanical Ventilator 100 03/29/20 02:00 113 29 123/74 (90) 96 03/29/20 01:00 119 17 122/76 (91) 97 03/29/20 01:00 18 122/76 Mechanical Ventilator 100 03/29/20 00:00 Mechanical Ventilator 03/29/20 00:00 100 03/29/20 00:00 20 122/78 Mechanical Ventilator 100 03/29/20 00:00 121 03/29/20 00:00 99.9 120 38 117/81 (93) 96 03/28/20 23:20 121 19 100 03/28/20 23:00 37 129/80 Mechanical Ventilator 100 03/28/20 23:00 122 36 127/81 (96) 96 03/28/20 22:00 37 118/76 Mechanical Ventilator 100 03/28/20 22:00 99.8 126 34 120/71 (87) 96 03/28/20 21:41 99.8 03/28/20 21:00 100.4 127 45 120/74 (89) 95 03/28/20 21:00 44 120/80 Mechanical Ventilator 100 03/28/20 20:30 43 120/80 Mechanical Ventilator 100 03/28/20 20:15 45 129/79 Mechanical Ventilator 100 03/28/20 20:00 Mechanical Ventilator 03/28/20 20:00 127 03/28/20 20:00 41 125/80 Mechanical Ventilator 100 03/28/20 20:00 127 41 125/88 (100) 93 03/28/20 20:00 100 03/28/20 19:20 126 24 100 03/28/20 19:00 44 132/84 Mechanical Ventilator 100 03/28/20 19:00 126 34 131/83 (99) 93 03/28/20 18:45 39 135/84 Mechanical Ventilator 100 03/28/20 18:30 41 139/88 Mechanical Ventilator 100 03/28/20 18:16 145/90 03/28/20 18:15 26 135/88 Mechanical Ventilator 100 03/28/20 18:00 28 145/90 Mechanical Ventilator 100 03/28/20 18:00 127 24 145/90 (108) 90 03/28/20 17:45 25 158/95 Mechanical Ventilator 100 03/28/20 17:30 35 162/102 Mechanical Ventilator 100 03/28/20 17:15 35 165/102 Mechanical Ventilator 100 03/28/20 17:00 98.6 135 28 174/111 (132) 91 03/28/20 17:00 35 169/104 Mechanical Ventilator 100 03/28/20 16:45 32 173/104 Mechanical Ventilator 100 03/28/20 16:30 32 177/113 Mechanical Ventilator 100 03/28/20 16:15 33 188/125 Mechanical Ventilator 100 03/28/20 16:01 30 142/98 Mechanical Ventilator 100 03/28/20 16:00 Mechanical Ventilator 03/28/20 16:00 139 30 177/113 (134) 94 03/28/20 16:00 100 03/28/20 16:00 138 03/28/20 15:21 134 23 100 03/28/20 15:00 138 24 148/90 (109) 88 03/28/20 14:00 137 26 141/100 (114) 93 03/28/20 13:38 27 157/107 Mechanical Ventilator 100 03/28/20 13:23 32 176/125 Mechanical Ventilator 100 03/28/20 13:08 24 168/106 Mechanical Ventilator 100 03/28/20 13:00 129 26 176/110 (132) 93 03/28/20 12:53 24 172/106 Mechanical Ventilator 100 03/28/20 12:47 130 20 100 03/28/20 12:38 26 176/110 Mechanical Ventilator 100 03/28/20 12:23 21 169/108 Mechanical Ventilator 100 03/28/20 12:08 27 198/112 Mechanical Ventilator 100 03/28/20 12:00 123 25 191/117 (141) 90 03/28/20 12:00 Bi-pap 03/28/20 11:32 100 03/28/20 11:32 119 03/28/20 10:53 102 20 76 03/28/20 10:49 115 03/28/20 10:30 116 14 100 03/28/20 10:30 116 14 82 Mechanical Ventilator 100 Intake and Output 03/28/20 03/29/20 19:00 07:00 Intake Total 2332.50 ml 154.75 ml Output Total 300 ml 640 ml Balance 2032.50 ml -485.25 ml Free Water 260 ml IV Total 2072.50 ml 154.75 ml Output Urine Total 300 ml 640 ml General Appearance: WD/WN, no acute distress HEENT: normocephalic, atraumatic Respiratory: chest wall non-tender Cardiovascular: normal rate, regular rhythm Abdomen: normal bowel sounds, soft, non tender, other - obese Laboratory Tests 03/28/20 16:48: Arterial Blood pH 7.208*L, Arterial Blood Partial Pressure CO2 86.0*H, Arterial Blood Partial Pressure O2 78.2, Arterial Blood HCO3 33.5H, Arterial Blood Oxygen Saturation 93.1L, Arterial Blood Base Excess 2.6H, Shemar Test Positive 03/29/20 04:30: White Blood Count 17.8#H, Red Blood Count 4.50L, Hemoglobin 12.7L, Hematocrit 40.0L, Mean Corpuscular Volume 89, Mean Corpuscular Hemoglobin 28.3, Mean Corpuscular Hemoglobin Concent 31.8L, Red Cell Distribution Width 14.5, Platelet Count 261, Mean Platelet Volume 6.6, Neutrophils (%) (Auto) , Lymphocytes (%) (Auto) , Monocytes (%) (Auto) , Eosinophils (%) (Auto) , Basophils (%) (Auto) , Differential Total Cells Counted 100, Neutrophils % (Manual) 86H, Lymphocytes % (Manual) 7L, Monocytes % (Manual) 7, Eosinophils % (Manual) 0, Basophils % (Manual) 0, Band Neutrophils 0, Platelet Estimate Adequate, Platelet Morphology Normal, Hypochromasia 1+, Anisocytosis 1+, Stomatocytes Occasional, Sodium Level 132L, Potassium Level 4.6, Chloride Level 93L, Carbon Dioxide Level 35H, Anion Gap 4L, Blood Urea Nitrogen 34H, Creatinine 1.0, Estimat Glomerular Filtration Rate > 60, Glucose Level 153H, Uric Acid 2.8, Calcium Level 8.1L, Phosphorus Level 4.2, Magnesium Level 1.9, Total Bilirubin 0.6, Aspartate Amino Transf (AST/SGOT) 91H, Alanine Aminotransferase (ALT/SGPT) 287H, Alkaline Phosphatase 253H, Total Protein 6.2L, Albumin 2.4L, Globulin 3.8, Albumin/Globulin Ratio 0.6L 03/29/20 08:00: Arterial Blood pH 7.236*L, Arterial Blood Partial Pressure CO2 90.8*H, Arterial Blood Partial Pressure O2 75.1, Arterial Blood HCO3 37.7H, Arterial Blood Oxygen Saturation 90.8L, Arterial Blood Base Excess 6.4H, Shemar Test Positive Current Medications Medications (Trade) Dose Ordered Sig/Dennis Route PRN Reason Start Time Stop Time Status Last Admin Dose Admin Acetaminophen (Tylenol) 650 mg Q4H PRN ORAL Mild Pain (Pain Scale 1-3) 03/09/20 12:00 04/08/20 11:59 03/29/20 06:11 Bisacodyl (Dulcolax) 10 mg HSPRN PRN RECTAL Constipation 02/05/20 13:15 05/05/20 13:14 Bisacodyl (Dulcolax) 10 mg Q12H PRN RECTAL Constipation 03/18/20 16:45 06/16/20 16:44 Chlorhexidine Gluconate (Marlen-Hex 2%) 1 applic DAILY TOPIC 03/29/20 09:00 06/27/20 08:59 03/29/20 08:31 Clonidine HCl (Catapres TTS-2) 1 patch QWEEK TDERMAL 03/21/20 18:00 06/19/20 17:59 03/28/20 18:16 Dextrose 1,000 ml @ 0 mls/hr Q24H PRN IV PN interrupted or unavailable 03/09/20 20:00 04/08/20 19:59 Dextrose (Dextrose 50%) 25 ml Q30M PRN IV Hypoglycemia 03/10/20 00:00 06/08/20 00:00 Dextrose (Dextrose 50%) 50 ml Q30M PRN IV Hypoglycemia 03/10/20 00:00 06/08/20 00:00 Enoxaparin Sodium (Lovenox) 40 mg DAILY SUBQ 03/13/20 12:00 06/11/20 11:59 03/29/20 08:34 Fat Emulsion Intravenous 192 ml/Amino Acids/ Electrolytes/ Dextrose 1,992 ml @ 83 mls/hr Q24H IV 03/17/20 20:00 04/16/20 19:59 03/28/20 20:25 Fentanyl Citrate 250 ml @ 0 mls/hr Q24H IV 03/28/20 14:30 03/30/20 14:29 03/28/20 16:01 Furosemide (Lasix) 20 mg EVERY 8 HOURS IV 03/19/20 14:00 04/18/20 13:59 03/29/20 06:02 Hydralazine HCl (Apresoline) 10 mg Q6H PRN IV For High Blood Pressure 03/09/20 17:00 06/07/20 16:59 03/21/20 17:19 Insulin Aspart (NovoLOG) Q6HR SUBQ 03/10/20 00:00 06/08/20 00:00 03/29/20 06:03 Insulin Detemir (Levemir) 18 units Q12HR SUBQ 03/14/20 21:00 06/10/20 20:59 03/29/20 09:18 Labetalol HCl (Normodyne) 10 mg Q4H PRN IV sbp greater tahtn 160 03/28/20 17:30 04/27/20 17:29 Lactulose (Cephulac) 20 gm THREE TIMES A DAY ORAL 03/08/20 13:00 04/07/20 12:59 03/29/20 08:31 Methylprednisolone Sodium Succinate (Solu-MEDROL) 40 mg EVERY 8 HOURS IVP 03/22/20 14:00 06/20/20 13:59 03/29/20 06:01 Metoclopramide HCl (Reglan) 5 mg Q6H IVP 03/29/20 09:00 04/28/20 08:59 03/29/20 09:17 Midazolam HCl 100 ml @ 0 mls/hr Q24H PRN IV Agitation 03/28/20 14:30 03/30/20 14:29 Pantoprazole (Protonix) 40 mg EVERY 12 HOURS ORAL 03/25/20 21:00 04/24/20 20:59 03/29/20 08:31 Polyethylene Glycol (Miralax) 17 gm BEDTIME ORAL 03/08/20 21:00 04/07/20 20:59 03/28/20 20:26 Trimethoprim/ Sulfamethoxazole 20 ml/Dextrose 570 ml @ 380 mls/hr [id number] BACTRIM IV 03/25/20 16:00 04/01/20 16:00 03/29/20 08:31 Vitamin D (Vitamin D) 5,000 unit DAILY ORAL 03/15/20 09:00 04/14/20 08:59 03/29/20 08:31 Assessment/Plan Assessment/Plan Assessment/Plan 1.COVID-19 pneumonia. - Completed specific therapies - On solumedrol 2. DVT ppx - on lovenox 3. Hypertension - on hydralazine, - s/p norvasc 4. Leukocytosis; - ID following - On abx 5. Elevated LFT - positive Hep C; treated in the past with IF 6. Respiratory failure -Intubated 03/28/20 -Family aware - Prognosis grave - Will increase Vt to 750; rate to 18 -On Fentanyl 7. Discussed with cardiology -No evidence for cardiac dysfunction or PE Tirmizi,John Christiano MD Mar 29, 2020 10:23
--- NOTE | 2020-03-29 11:00 | NUR ---
NURSE NOTES: Patient is hypotensive. Texted Dr. Awan about hypotensive medication. ordered levophed.
--- NOTE | 2020-03-29 11:00 | NUR ---
NURSE NOTES: fentanyl held because patient is hypotensive 79/54. updated Dr. Awan and ordered PRN levophed.
[2020-03-29] MEDS ORDERED: Norepinephrine 4mg/NS Premix 250 ML IV PRN (11:31)
--- NOTE | 2020-03-29 12:00 | NUR ---
NURSE NOTES: Called Dietary about titration of TPN as the tube feeding starts. Dietary recommends to start tube feeding at low rate (20 mL/hr, goal 50), and an hour later, titrate down TPN 40 mL/hr.
[2020-03-29] MEDS: fentaNYL 2500mcg/NS 250ml 250 ML IV SCH (12:39)
--- NOTE | 2020-03-29 13:16 | Diagnostic Imaging Report ---
Indication: Cough Technique: One view of the chest Comparison: 03/28/2020 Findings: Bilateral infiltrates are unchanged or slightly worse, allowing for differences in exposure technique. The pleural spaces are clear. The heart size is normal. Stable satisfactory position of endotracheal tube, left arm PICC. Orogastric tube has retracted somewhat the position remains satisfactory. Impression: Stable to slightly worse bilateral infiltrates. Otherwise little cell changer one day
--- NOTE | 2020-03-29 14:03 | NUR ---
NURSE NOTES: lasix is on hold because patient is hypotensive. will continue to monitor patient.
--- NOTE | 2020-03-29 14:25 | NUR ---
BRAKE [employer]ING [employer] NOTE Pt is currently intubated. SW spoke w/ pt's brother, Radha Horta [phone] and obtained information. Pt resides alone, single, never and has no children. Radha was unclear if pt has POA/AD. Radha agreed to be the primary architectural draftsperson. Pt was ambulatory w/o DME and independent w/ ADLs prior to admission. Pt remains full code. Other emergency contact: Denise Sibley (sister) [phone].
--- NOTE | 2020-03-29 14:47 | Nephrology Progress Note ---
Assessment/Plan Problem List: (1) Dehydration (2) Electrolyte imbalance (3) COVID-19 virus infection (4) Pneumonia (5) DMII (diabetes mellitus, type 2) (6) Protein malnutrition Assessment Azotemia, hypernatremia Hypoalbuminemia Staff Otilia bacteremia COVID-19 isolation, pneumonia, bilateral infiltrate Hypertension Diabetes mellitus History of smoking Plan March 29: Remains full code. On mechanical ventilation. On tube feeding. Will DC TPN. Will start on maintenance IV fluid. Continue to monitor renal parameters. March 28: On BiPAP. Full code. On TPN. Labs reviewed. Discussed with pharmacy. Continue as is. Watch serum potassium. March 27: Remains on BiPAP. No chemistry panel done today. Full code. On TPN. Will check lab tomorrow. March 26: Remains on BiPAP. Remains on TPN. Labs reviewed. Electrolytes and chemistries within normal limits. Continue as is. March 25: Remains on TPN. Labs reviewed. Discussed with pharmacy. Change IV Protonix to p.o. Continue 3% saline infusion with Lasix. Patient full code. March 24: Continue to be on TPN. Labs are reviewed. Aim to collect electrolytes. Discussed with pharmacy. Continue current consultants. March 23: Continues to be on TPN. Labs reviewed. Electrolytes and chemistries all acceptable. Discussed with pharmacy. Continue current management. March 22: On TPN. Labs reviewed. Low sodium noted. 3% saline to be continued. Continue to monitor electrolytes. Discussed with pharmacy. March 21: On TPN. Labs reviewed. Continue 3% saline and Lasix for mild hyponatremia. Continue TPN as these. Discussed with pharmacy. March 20: Remains on TPN. Labs reviewed. Serum sodium higher on IV Lasix and 3% saline infusion. Continue TPN as is. Continue to monitor renal parameters and electrolytes. Discussed with Dr. Mata March 19: Remains on TPN. Labs reviewed. Serum sodium 128. Will give 3% saline with IV Lasix. Continue to monitor electrolytes. No change in TPN composition. Discussed with pharmacy. March 18: Remains on TPN. Labs reviewed. Discussed with pharmacist. Will give 3 doses of IV Lasix 20 mg every 8 hours. Continue to monitor serum sodium electrolytes uric acid. White blood cells down. Continue per consultants. March 17: On TPN. Labs reviewed. Discussed with pharmacist. Sodium content increase. Continue to monitor CMP. Patient continues to have leukocytosis. March 16: On TPN. Labs reviewed. Discussed with pharmacist. Appropriate changes made. Continue to monitor electrolytes. March 15: Remains on TPN. Labs reviewed. Discussed with pharmacist. Continue per current management. March 14: Remains on TPN. Labs reviewed, stable. Vitamin D level low, replacement ordered. Continue to monitor electrolytes and renal parameters. March 13: Patient remains on TPN. Discussed with pharmacist. TPN's sodium content adjusted. Labs reviewed. Continue to monitor electrolytes. Blood pressure remains stable. Continue per consultants. March 12: Patient on TPN. Labs reviewed. CPK remains elevated. Abnormal electrolytes and high blood sugar discussed with pharmacist and TPN adjusted. Continue to monitor labs. Oral Protonix added. Ibuprofen discontinued. Can continue to monitor electrolytes and chemistries. Levemir for high blood sugar added. March 11: Patient on TPN. Labs as of 11:15 AM is still pending. Continue per current treatment plan. Will check labs and adjust TPN as needed. Continue per consultants. March 10: Patient on TPN. Labs reviewed. Electrolytes overall stable. CPK is elevated. Will monitor electrolyte, CPK level, lipid panel. Continue per consultants. Discussed with pharmacist. Discussed with RN. Nutritional evaluation noted. Previously: D5W 100 cc an hour Monitor electrolytes renal parameters TPN and Intralipid ordered Will follow Continue per consultants Dietary consult requested Subjective ROS Limited/Unobtainable: Yes Objective Objective Last 24 Hour Vital Signs Date Time Temp Pulse Resp B/P (MAP) Pulse Ox O2 Delivery O2 Flow Rate FiO2 03/29/20 14:00 98 19 93/60 (71) 92 03/29/20 13:00 98.6 99 18 91/56 (68) 94 03/29/20 12:39 19 83/57 Mechanical Ventilator 100 03/29/20 12:00 Mechanical Ventilator 03/29/20 12:00 100 03/29/20 12:00 96 19 84/55 (65) 92 03/29/20 12:00 95 03/29/20 11:28 103 18 100 03/29/20 11:00 94 18 83/57 (66) 93 03/29/20 10:20 111 18 100 03/29/20 10:00 113 18 111/71 (84) 97 03/29/20 09:30 100 03/29/20 09:00 117 16 119/74 (89) 95 03/29/20 08:08 117 03/29/20 08:00 Mechanical Ventilator 03/29/20 08:00 116 19 131/83 (99) 95 03/29/20 08:00 100 03/29/20 07:20 116 16 100 03/29/20 07:00 17 122/73 Mechanical Ventilator 100 03/29/20 07:00 115 17 122/73 (89) 95 03/29/20 06:41 100.0 03/29/20 06:00 17 123/80 Mechanical Ventilator 100 03/29/20 06:00 116 30 117/69 (85) 95 03/29/20 05:00 22 124/70 Mechanical Ventilator 100 03/29/20 05:00 114 32 115/66 (82) 95 03/29/20 04:00 112 03/29/20 04:00 34 109/65 Mechanical Ventilator 100 03/29/20 04:00 99.0 112 33 110/66 (81) 94 03/29/20 04:00 Mechanical Ventilator 03/29/20 04:00 100 03/29/20 03:20 114 17 100 03/29/20 03:00 112 31 130/75 (93) 95 03/29/20 03:00 31 119/81 Mechanical Ventilator 95 03/29/20 02:00 31 122/76 Mechanical Ventilator 100 03/29/20 02:00 113 29 123/74 (90) 96 03/29/20 01:00 119 17 122/76 (91) 97 03/29/20 01:00 18 122/76 Mechanical Ventilator 100 03/29/20 00:00 Mechanical Ventilator 03/29/20 00:00 100 03/29/20 00:00 20 122/78 Mechanical Ventilator 100 03/29/20 00:00 121 03/29/20 00:00 99.9 120 38 117/81 (93) 96 03/28/20 23:20 121 19 100 03/28/20 23:00 37 129/80 Mechanical Ventilator 100 03/28/20 23:00 122 36 127/81 (96) 96 03/28/20 22:00 37 118/76 Mechanical Ventilator 100 03/28/20 22:00 99.8 126 34 120/71 (87) 96 03/28/20 21:41 99.8 03/28/20 21:00 100.4 127 45 120/74 (89) 95 03/28/20 21:00 44 120/80 Mechanical Ventilator 100 03/28/20 20:30 43 120/80 Mechanical Ventilator 100 03/28/20 20:15 45 129/79 Mechanical Ventilator 100 03/28/20 20:00 Mechanical Ventilator 03/28/20 20:00 127 03/28/20 20:00 41 125/80 Mechanical Ventilator 100 03/28/20 20:00 127 41 125/88 (100) 93 03/28/20 20:00 100 03/28/20 19:20 126 24 100 03/28/20 19:00 44 132/84 Mechanical Ventilator 100 03/28/20 19:00 126 34 131/83 (99) 93 03/28/20 18:45 39 135/84 Mechanical Ventilator 100 03/28/20 18:30 41 139/88 Mechanical Ventilator 100 03/28/20 18:16 145/90 03/28/20 18:15 26 135/88 Mechanical Ventilator 100 03/28/20 18:00 28 145/90 Mechanical Ventilator 100 03/28/20 18:00 127 24 145/90 (108) 90 03/28/20 17:45 25 158/95 Mechanical Ventilator 100 03/28/20 17:30 35 162/102 Mechanical Ventilator 100 03/28/20 17:15 35 165/102 Mechanical Ventilator 100 03/28/20 17:00 98.6 135 28 174/111 (132) 91 03/28/20 17:00 35 169/104 Mechanical Ventilator 100 03/28/20 16:45 32 173/104 Mechanical Ventilator 100 03/28/20 16:30 32 177/113 Mechanical Ventilator 100 03/28/20 16:15 33 188/125 Mechanical Ventilator 100 03/28/20 16:01 30 142/98 Mechanical Ventilator 100 03/28/20 16:00 Mechanical Ventilator 03/28/20 16:00 139 30 177/113 (134) 94 03/28/20 16:00 100 03/28/20 16:00 138 03/28/20 15:21 134 23 100 03/28/20 15:00 138 24 148/90 (109) 88 Intake and Output 03/28/20 03/29/20 19:00 07:00 Intake Total 2332.50 ml 154.75 ml Output Total 300 ml 640 ml Balance 2032.50 ml -485.25 ml Free Water 260 ml IV Total 2072.50 ml 154.75 ml Output Urine Total 300 ml 640 ml Current Medications Medications (Trade) Dose Ordered Sig/Dennis Route PRN Reason Start Time Stop Time Status Last Admin Dose Admin Acetaminophen (Tylenol) 650 mg Q4H PRN ORAL Mild Pain (Pain Scale 1-3) 03/09/20 12:00 04/08/20 11:59 03/29/20 06:11 Bisacodyl (Dulcolax) 10 mg HSPRN PRN RECTAL Constipation 02/05/20 13:15 05/05/20 13:14 Bisacodyl (Dulcolax) 10 mg Q12H PRN RECTAL Constipation 03/18/20 16:45 06/16/20 16:44 Chlorhexidine Gluconate (Marlen-Hex 2%) 1 applic DAILY TOPIC 03/29/20 09:00 06/27/20 08:59 03/29/20 08:31 Clonidine HCl (Catapres TTS-2) 1 patch QWEEK TDERMAL 03/21/20 18:00 06/19/20 17:59 03/28/20 18:16 Dextrose 1,000 ml @ 0 mls/hr Q24H PRN IV PN interrupted or unavailable 03/09/20 20:00 03/29/20 19:59 Dextrose (Dextrose 50%) 25 ml Q30M PRN IV Hypoglycemia 03/10/20 00:00 03/29/20 19:59 Dextrose (Dextrose 50%) 50 ml Q30M PRN IV Hypoglycemia 03/10/20 00:00 03/29/20 19:59 Enoxaparin Sodium (Lovenox) 40 mg DAILY SUBQ 03/13/20 12:00 06/11/20 11:59 03/29/20 08:34 Fat Emulsion Intravenous 192 ml/Amino Acids/ Electrolytes/ Dextrose 1,992 ml @ 83 mls/hr Q24H IV 03/17/20 20:00 03/29/20 19:59 03/28/20 20:25 Fentanyl Citrate 250 ml @ 0 mls/hr Q24H IV 03/28/20 14:30 03/30/20 14:29 03/29/20 12:39 Furosemide (Lasix) 20 mg EVERY 8 HOURS IV 03/19/20 14:00 04/18/20 13:59 03/29/20 06:02 Hydralazine HCl (Apresoline) 10 mg Q6H PRN IV For High Blood Pressure 03/09/20 17:00 06/07/20 16:59 03/21/20 17:19 Insulin Aspart (NovoLOG) Q6HR SUBQ 03/10/20 00:00 03/29/20 19:59 03/29/20 12:08 Insulin Detemir (Levemir) 18 units Q12HR SUBQ 03/14/20 21:00 06/10/20 20:59 03/29/20 09:18 Labetalol HCl (Normodyne) 10 mg Q4H PRN IV sbp greater tahtn 160 03/28/20 17:30 04/27/20 17:29 Lactulose (Cephulac) 20 gm THREE TIMES A DAY ORAL 03/08/20 13:00 04/07/20 12:59 03/29/20 12:38 Meropenem 1 gm/ Sodium Chloride 100 ml @ 200 mls/hr Q8HR IVPB 03/29/20 15:00 04/03/20 14:59 Methylprednisolone Sodium Succinate (Solu-MEDROL) 40 mg EVERY 8 HOURS IVP 03/22/20 14:00 06/20/20 13:59 03/29/20 13:57 Metoclopramide HCl (Reglan) 5 mg Q6H IVP 03/29/20 09:00 04/28/20 08:59 03/29/20 09:17 Micafungin Sodium 100 mg/Sodium Chloride 100 ml @ 100 mls/hr Q24H IVPB 03/29/20 15:00 04/05/20 14:59 Midazolam HCl 100 ml @ 0 mls/hr Q24H PRN IV Agitation 03/28/20 14:30 03/30/20 14:29 Norepinephrine Bitartrate 250 ml @ 0 mls/hr Q24H PRN IV For hypotension 03/29/20 11:31 04/01/20 11:30 Pantoprazole (Protonix) 40 mg EVERY 12 HOURS ORAL 03/25/20 21:00 04/24/20 20:59 03/29/20 08:31 Polyethylene Glycol (Miralax) 17 gm BEDTIME ORAL 03/08/20 21:00 04/07/20 20:59 03/28/20 20:26 Trimethoprim/ Sulfamethoxazole (Bactrim-DS) 1 tab Q24H ORAL 03/29/20 17:00 04/05/20 16:59 Vancomycin HCl 300 ml @ 150 mls/hr Q12HR@0600,1800 IVPB 03/29/20 18:00 04/03/20 17:59 Vancomycin HCl (Vanco pharmacy to dose) 1 ea DAILY PRN MISC Per rx protocol 03/29/20 14:30 04/28/20 14:29 Vitamin D (Vitamin D) 5,000 unit DAILY ORAL 03/15/20 09:00 04/14/20 08:59 03/29/20 08:31 Laboratory Tests 03/28/20 16:48: Arterial Blood pH 7.208*L, Arterial Blood Partial Pressure CO2 86.0*H, Arterial Blood Partial Pressure O2 78.2, Arterial Blood HCO3 33.5H, Arterial Blood Oxygen Saturation 93.1L, Arterial Blood Base Excess 2.6H, Shemar Test Positive 03/29/20 04:30: White Blood Count 17.8#H, Red Blood Count 4.50L, Hemoglobin 12.7L, Hematocrit 40 .0L, Mean Corpuscular Volume 89, Mean Corpuscular Hemoglobin 28.3, Mean Corpuscular Hemoglobin Concent 31.8L, Red Cell Distribution Width 14.5, Platelet Count 261, Mean Platelet Volume 6.6, Neutrophils (%) (Auto) , Lymphocytes (%) (Auto) , Monocytes (%) (Auto) , Eosinophils (%) (Auto) , Basophils (%) (Auto) , Differential Total Cells Counted 100, Neutrophils % (Manual) 86H, Lymphocytes % (Manual) 7L, Monocytes % (Manual) 7, Eosinophils % (Manual) 0, Basophils % (Manual) 0, Band Neutrophils 0, Platelet Estimate Adequate, Platelet Morphology Normal, Hypochromasia 1+, Anisocytosis 1+, Stomatocytes Occasional, Sodium Level 132L, Potassium Level 4.6, Chloride Level 93L, Carbon Dioxide Level 35H, Anion Gap 4L, Blood Urea Nitrogen 34H, Creatinine 1.0, Estimat Glomerular Filtration Rate > 60, Glucose Level 153H, Uric Acid 2.8, Calcium Level 8.1L, Phosphorus Level 4.2, Magnesium Level 1.9, Total Bilirubin 0.6, Aspartate Amino Transf (AST/SGOT) 91H, Alanine Aminotransferase (ALT/SGPT) 287H, Alkaline Phosphatase 253H, Total Protein 6.2L, Albumin 2.4L, Globulin 3.8, Albumin/Globulin Ratio 0.6L 03/29/20 05:58: POC Whole Blood Glucose 155H 03/29/20 08:00: Arterial Blood pH 7.236*L, Arterial Blood Partial Pressure CO2 90.8*H, Arterial Blood Partial Pressure O2 75.1, Arterial Blood HCO3 37.7H, Arterial Blood Oxygen Saturation 90.8L, Arterial Blood Base Excess 6.4H, Shemar Test Positive 03/29/20 08:59: POC Whole Blood Glucose [Pending] 03/29/20 11:40: Arterial Blood pH 7.377, Arterial Blood Partial Pressure CO2 58.2*H, Arterial Blood Partial Pressure O2 50.9L, Arterial Blood HCO3 33.4H, Arterial Blood Oxygen Saturation 88.3*L, Arterial Blood Base Excess 6.8H, Shemar Test Positive 03/29/20 11:56: POC Whole Blood Glucose [Pending] Height (Feet): 5 Height (Inches): 10.00 Weight (Pounds): 240 General Appearance: no apparent distress Cardiovascular: tachycardia Respiratory/Chest: decreased breath sounds Abdomen: distended Rubin Cooper MD Mar 29, 2020 14:47
[2020-03-29] MEDS ORDERED: D5NS 1,000 ML IV SCH (15:00)
--- NOTE | 2020-03-29 15:22 | Infectious Diseases Prog Note ---
Assessment/Plan Assessment/Plan ASSESSMENT AND PLAN: 1. staph aureus bacteremia/mssa, ? source, ? endocarditis, sepsis, leukocytosis, ? CAP, PJP less likely with HIV negative and steroids < 1 month covid-19 +, hypoxia, sob, chest x-ray worse, ? PE, ? HCAP/aspiration pna recurrent fevers - ? fungal, ? OI leukocytosis noted - ? new infection, ? steroids cocci serology negative, legionella negative, beta 1,3 D-glucan wnl, Il-16 - 13.7 elevated LFT's - ? TPN, ? Bactrim - US without gallbladder disease, + steatosis - d/w GI - TPN more likely than bactrim as etiology e.coli uti - s/p treatment with rocephin, s/p treatment for presumptive pneumocystis pna recurrent sepsis, ? early shock, leukocytosis, fevers, fungemia risk, TPN s/p bronchoscopy and on vent - empiric meropenem, vancomycin and micafungin - re-culture patient - bactrim for empiric pneumocystis pna treatment -s/p 3 weeks treatment - will start prophylaxis bactrim - s/p tx for mssa bacteremia and ? endocarditis - monitor hypoxia, labs and chest x-ray - guarded condition 2. covid-19 isolation 3. Hypertension history. Blood pressure treatment primary care team. 4. Elevated blood sugars. Blood sugar treatment per primary care team. 5. No known drug allergies. 6. Social history is positive for smoking. 7. Family history is noncontributory. 8. MAR was noted. 9. Case was discussed with RN. 10. Continue treatment per primary consultants. Subjective Constitutional: Reports: fever, other - sedated, on vent, s/p bronchoscopy, no pressors but bp low HEENT: Reports: congestion Respiratory: Reports: shortness of breath Cardiovascular: Reports: other - no pressors Gastrointestinal/Abdominal: Denies: nausea, vomiting, diarrhea Genitourinary: Reports: other - + joseph Neurologic: Reports: other - sedated, on vent Psychiatric: Reports: other - NA Skin: Denies: rash Hematologic: Denies: bleeding Musculoskeletal: Denies: pain Allergies: Coded Allergies: No Known Allergies (Unverified , 02/05/20) Objective Last 24 Hour Vital Signs Date Time Temp Pulse Resp B/P (MAP) Pulse Ox O2 Delivery O2 Flow Rate FiO2 03/29/20 14:00 98 19 93/60 (71) 92 03/29/20 13:00 98.6 99 18 91/56 (68) 94 03/29/20 12:39 19 83/57 Mechanical Ventilator 100 03/29/20 12:00 Mechanical Ventilator 03/29/20 12:00 100 03/29/20 12:00 96 19 84/55 (65) 92 03/29/20 12:00 95 03/29/20 11:28 103 18 100 03/29/20 11:00 94 18 83/57 (66) 93 03/29/20 10:20 111 18 100 03/29/20 10:00 113 18 111/71 (84) 97 03/29/20 09:30 100 03/29/20 09:00 117 16 119/74 (89) 95 03/29/20 08:08 117 03/29/20 08:00 Mechanical Ventilator 03/29/20 08:00 116 19 131/83 (99) 95 03/29/20 08:00 100 03/29/20 07:20 116 16 100 03/29/20 07:00 17 122/73 Mechanical Ventilator 100 03/29/20 07:00 115 17 122/73 (89) 95 03/29/20 06:41 100.0 03/29/20 06:00 17 123/80 Mechanical Ventilator 100 03/29/20 06:00 116 30 117/69 (85) 95 03/29/20 05:00 22 124/70 Mechanical Ventilator 100 03/29/20 05:00 114 32 115/66 (82) 95 03/29/20 04:00 112 03/29/20 04:00 34 109/65 Mechanical Ventilator 100 03/29/20 04:00 99.0 112 33 110/66 (81) 94 03/29/20 04:00 Mechanical Ventilator 03/29/20 04:00 100 03/29/20 03:20 114 17 100 03/29/20 03:00 112 31 130/75 (93) 95 03/29/20 03:00 31 119/81 Mechanical Ventilator 95 03/29/20 02:00 31 122/76 Mechanical Ventilator 100 03/29/20 02:00 113 29 123/74 (90) 96 03/29/20 01:00 119 17 122/76 (91) 97 03/29/20 01:00 18 122/76 Mechanical Ventilator 100 03/29/20 00:00 Mechanical Ventilator 03/29/20 00:00 100 03/29/20 00:00 20 122/78 Mechanical Ventilator 100 03/29/20 00:00 121 03/29/20 00:00 99.9 120 38 117/81 (93) 96 03/28/20 23:20 121 19 100 03/28/20 23:00 37 129/80 Mechanical Ventilator 100 03/28/20 23:00 122 36 127/81 (96) 96 03/28/20 22:00 37 118/76 Mechanical Ventilator 100 03/28/20 22:00 99.8 126 34 120/71 (87) 96 03/28/20 21:41 99.8 03/28/20 21:00 100.4 127 45 120/74 (89) 95 03/28/20 21:00 44 120/80 Mechanical Ventilator 100 03/28/20 20:30 43 120/80 Mechanical Ventilator 100 03/28/20 20:15 45 129/79 Mechanical Ventilator 100 03/28/20 20:00 Mechanical Ventilator 03/28/20 20:00 127 03/28/20 20:00 41 125/80 Mechanical Ventilator 100 03/28/20 20:00 127 41 125/88 (100) 93 03/28/20 20:00 100 03/28/20 19:20 126 24 100 03/28/20 19:00 44 132/84 Mechanical Ventilator 100 03/28/20 19:00 126 34 131/83 (99) 93 03/28/20 18:45 39 135/84 Mechanical Ventilator 100 03/28/20 18:30 41 139/88 Mechanical Ventilator 100 03/28/20 18:16 145/90 03/28/20 18:15 26 135/88 Mechanical Ventilator 100 03/28/20 18:00 28 145/90 Mechanical Ventilator 100 03/28/20 18:00 127 24 145/90 (108) 90 03/28/20 17:45 25 158/95 Mechanical Ventilator 100 03/28/20 17:30 35 162/102 Mechanical Ventilator 100 03/28/20 17:15 35 165/102 Mechanical Ventilator 100 03/28/20 17:00 98.6 135 28 174/111 (132) 91 1/26/21 17:00 35 169/104 Mechanical Ventilator 100 03/28/20 16:45 32 173/104 Mechanical Ventilator 100 03/28/20 16:30 32 177/113 Mechanical Ventilator 100 03/28/20 16:15 33 188/125 Mechanical Ventilator 100 03/28/20 16:01 30 142/98 Mechanical Ventilator 100 03/28/20 16:00 Mechanical Ventilator 03/28/20 16:00 139 30 177/113 (134) 94 03/28/20 16:00 100 03/28/20 16:00 138 03/28/20 15:21 134 23 100 Height (Feet): 5 Height (Inches): 10.00 Weight (Pounds): 240 General Appearance: other - on vent, no pressors, low blood pressure, sedated HEENT: normocephalic, atraumatic, anicteric, no JVD, other - oral - intubated Respiratory/Chest: crackles/rales, rhonchi - bilaterally Cardiovascular: normal rate, regular rhythm, no gallop/murmur Abdomen: normal bowel sounds, soft, non tender, no organomegaly, non distended Genitourinary: other - + joseph Extremities: no cyanosis Skin: no rash Neurologic/Psychiatric: other - weak, sedated Lymphatic: no neck adenopathy Musculoskeletal: no effusion CT chest: IMPRESSION: There are mild subpleural ground-glass and consolidating infiltrates in the dependent portions of both lower lobes and to lesser degree the upper lobes consistent with bilateral pneumonia. The infiltrates are typical for Covid 19. No evidence of pulmonary embolus. CT abdomen and pelvis: IMPRESSION: 1. Scattered hepatic hypodense lesions, too small to characterize on this examination without intravenous contrast. 2. Colonic diverticulosis without evidence of acute diverticulitis. 3. Scattered enlarged mesenteric lymph nodes, presumably reactive. teral pneumonia. The infiltrates are typical for Covid 19. No evidence of pulmonary embolus. Chest x-ray - 12/19/19 - Indication: Shortness of breath Technique: One view of the chest Comparison: 02/17/2020 Findings: Interim worsening of bilateral infiltrates, particularly on the right. The heart is borderline enlarged. The pleural spaces are clear. Left arm PICC is again demonstrated Impression: Worsening bilateral infiltrates over one day, likely pneumonia CT chest - 02/19/20 - IMPRESSION: Increased extensive patchy ground-glass opacities and densities throughout the lungs, suggestive of Covid 19 infection. Chest x-ray 02/23/20 - Procedure: XRAY Chest 1v As Indication: Reason For Exam: INFECT Technique: One view of the chest Comparison: 02/20/2020 Findings: Allowing for differences in exposure technique, bilateral mid and lower lung infiltrates are probably unchanged. The heart size is normal. The pleural spaces are clear. Impression: Unchanged, over 4 days, findings as above. Chest x-ray - 02/25/20 - FINDINGS: Lungs: Interval slightly worsening bilateral airspace disease. Pleural space: Unremarkable. No pneumothorax. Heart: Unremarkable. No cardiomegaly. Mediastinum: Unremarkable. Bones/joints: Unremarkable. IMPRESSION: Interval slightly worsening bilateral airspace disease. Chest x-ray - 03/02/20 - Procedure: XRAY Chest 1v Indication: Shortness of breath Technique: One view of the chest Comparison: 02/25/2020 Findings: Bilateral interstitial and airspace infiltrates are unchanged. The heart size is normal. Left arm PICC is again demonstrated Impression: Unchanged, over one day, findings as above. Chest x-ray - 03/06/20 - Procedure: XRAY Chest 1v Indication: Shortness of breath Technique: One view of the chest Comparison: 03/02/2020 Findings: Bilateral infiltrates are unchanged. Normal heart size. Pleural spaces are clear Chest x-ray - 03/12/10 - Impression: COMPARISON: Chest radiograph March 06, 2020. FINDINGS/IMPRESSION: Improving basilar infiltrates. Follow chest radiograph recommended. The upper lung finley are clear. No pneumothorax. Stable cardiomegaly. Stable left upper extremity PICC line. anged, over 4 days, findings as above. Chest x-ray - 03/17/20 - Procedure: XRAY Chest 1v Indication: Shortness of breath Technique: One view of the chest Comparison: 03/12/2020 Findings: Left arm PICC is again demonstrated. Infiltrates are unchanged. The heart size is upper limits of normal. Impression: Unchanged, over 5 days, findings as above. Abdominal US - IMPRESSION: 1. Gallbladder is normal. 2. Hepatic steatosis. 3. 1.7 cm cyst right kidney. Impression. Chest x-ray - Procedure: XRAY Chest 1v Indication: Shortness of breath Technique: One view of the chest Comparison: 03/17/2020 Findings: Bilateral right greater than left infiltrates again demonstrated. The heart size is normal. There is a left arm PICC in good position. Impression: Unchanged, over 5 days, findings as above. Chest x-ray - 03/29/20 - Procedure: XRAY Chest 1v Indication: Cough Technique: One view of the chest Comparison: 03/28/2020 Findings: Bilateral infiltrates are unchanged or slightly worse, allowing for differences in exposure technique. The pleural spaces are clear. The heart size is normal. Stable satisfactory position of endotracheal tube, left arm PICC. Orogastric tube has retracted somewhat the position remains satisfactory. Impression: Stable to slightly worse bilateral infiltrates. 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 Microbiology Date/Time Source Procedure Growth Status 03/18/20 06:15 Urine,Clean Catch Urine Culture - Final Escherichia Coli Complete 03/17/20 18:35 Blood Blood Culture - Final NO GROWTH AFTER 5 DAYS Complete 02/10/20 06:30 Nasopharynx SARS-CoV-2 RdRp Gene Assay - Final Complete Microbiology Date/Time Source Procedure Growth Status 03/18/20 06:15 Urine,Clean Catch Urine Culture - Final Escherichia Coli Complete 03/17/20 18:35 Blood Blood Culture - Final NO GROWTH AFTER 5 DAYS Complete 02/10/20 06:30 Nasopharynx SARS-CoV-2 RdRp Gene Assay - Final Complete Laboratory Tests Test 03/28/20 16:48 03/29/20 04:30 03/29/20 05:58 03/29/20 08:00 Arterial Blood pH 7.208 (7.350-7.450) 7.236 (7.350-7.450) Arterial Blood Partial Pressure CO2 86.0 mmHg (35.0-45.0) *H 90.8 mmHg (35.0-45.0) *H Arterial Blood Partial Pressure O2 78.2 mmHg (75.0-100.0) 75.1 mmHg (75.0-100.0) Arterial Blood HCO3 33.5 mmol/L (22.0-26.0) H 37.7 mmol/L (22.0-26.0) H Arterial Blood Oxygen Saturation 93.1 % (95-100) L 90.8 % (95-100) L Arterial Blood Base Excess 2.6 (-2-2) H 6.4 (-2-2) H Shemar Test Positive Positive White Blood Count 17.8 K/UL (4.8-10.8) #H Red Blood Count 4.50 M/UL (4.70-6.10) L Hemoglobin 12.7 G/DL (14.2-18.0) L Hematocrit 40.0 % (42.0-52.0) L Mean Corpuscular Volume 89 FL (80-99) Mean Corpuscular Hemoglobin 28.3 PG (27.0-31.0) Mean Corpuscular Hemoglobin Concent 31.8 G/DL (32.0-36.0) L Red Cell Distribution Width 14.5 % (11.6-14.8) Platelet Count 261 K/UL (150-450) Mean Platelet Volume 6.6 FL (6.5-10.1) Neutrophils (%) (Auto) % (45.0-75.0) Lymphocytes (%) (Auto) % (20.0-45.0) Monocytes (%) (Auto) % (1.0-10.0) Eosinophils (%) (Auto) % (0.0-3.0) Basophils (%) (Auto) % (0.0-2.0) Differential Total Cells Counted 100 Neutrophils % (Manual) 86 % (45-75) H Lymphocytes % (Manual) 7 % (20-45) L Monocytes % (Manual) 7 % (1-10) Eosinophils % (Manual) 0 % (0-3) Basophils % (Manual) 0 % (0-2) Band Neutrophils 0 % (0-8) Platelet Estimate Adequate Platelet Morphology Normal Hypochromasia 1+ Anisocytosis 1+ Stomatocytes Occasional Sodium Level 132 MMOL/L (136-145) L Potassium Level 4.6 MMOL/L (3.5-5.1) Chloride Level 93 MMOL/L (98-107) L Carbon Dioxide Level 35 MMOL/L (21-32) H Anion Gap 4 mmol/L (5-15) L Blood Urea Nitrogen 34 mg/dL (7-18) H Creatinine 1.0 MG/DL (0.55-1.30) Estimat Glomerular Filtration Rate > 60 mL/min (>60) Glucose Level 153 MG/DL (74-106) H Uric Acid 2.8 MG/DL (2.6-7.2) Calcium Level 8.1 MG/DL (8.5-10.1) L Phosphorus Level 4.2 MG/DL (2.5-4.9) Magnesium Level 1.9 MG/DL (1.8-2.4) Total Bilirubin 0.6 MG/DL (0.2-1.0) Aspartate Amino Transf (AST/SGOT) 91 U/L (15-37) H Alanine Aminotransferase (ALT/SGPT) 287 U/L (12-78) H Alkaline Phosphatase 253 U/L (46-116) H Total Protein 6.2 G/DL (6.4-8.2) L Albumin 2.4 G/DL (3.4-5.0) L Globulin 3.8 g/dL Albumin/Globulin Ratio 0.6 (1.0-2.7) L POC Whole Blood Glucose 155 MG/DL (74-106) H Test 03/29/20 08:59 03/29/20 11:40 03/29/20 11:56 POC Whole Blood Glucose Pending Pending Arterial Blood pH 7.377 (7.350-7.450) Arterial Blood Partial Pressure CO2 58.2 mmHg (35.0-45.0) *H Arterial Blood Partial Pressure O2 50.9 mmHg (75.0-100.0) L Arterial Blood HCO3 33.4 mmol/L (22.0-26.0) H Arterial Blood Oxygen Saturation 88.3 % (95-100) *L Arterial Blood Base Excess 6.8 (-2-2) H Shemar Test Positive Current Medications Medications (Trade) Dose Ordered Sig/Dennis Route PRN Reason Start Time Stop Time Status Last Admin Dose Admin Acetaminophen (Tylenol) 650 mg Q4H PRN ORAL Mild Pain (Pain Scale 1-3) 03/09/20 12:00 04/08/20 11:59 03/29/20 06:11 Bisacodyl (Dulcolax) 10 mg HSPRN PRN RECTAL Constipation 02/05/20 13:15 05/05/20 13:14 Bisacodyl (Dulcolax) 10 mg Q12H PRN RECTAL Constipation 03/18/20 16:45 06/16/20 16:44 Chlorhexidine Gluconate (Marlen-Hex 2%) 1 applic DAILY TOPIC 03/29/20 09:00 06/27/20 08:59 03/29/20 08:31 Clonidine HCl (Catapres TTS-2) 1 patch QWEEK TDERMAL 1/19/21 18:00 06/19/20 17:59 03/28/20 18:16 Dextrose 1,000 ml @ 0 mls/hr Q24H PRN IV PN interrupted or unavailable 03/09/20 20:00 03/29/20 19:59 Dextrose (Dextrose 50%) 25 ml Q30M PRN IV Hypoglycemia 03/10/20 00:00 03/29/20 19:59 Dextrose (Dextrose 50%) 50 ml Q30M PRN IV Hypoglycemia 03/10/20 00:00 03/29/20 19:59 Dextrose/Sodium Chloride 1,000 ml @ 50 mls/hr Q20H IV 03/29/20 15:00 04/28/20 14:59 Enoxaparin Sodium (Lovenox) 40 mg DAILY SUBQ 03/13/20 12:00 06/11/20 11:59 03/29/20 08:34 Fat Emulsion Intravenous 192 ml/Amino Acids/ Electrolytes/ Dextrose 1,992 ml @ 83 mls/hr Q24H IV 03/17/20 20:00 03/29/20 19:59 03/28/20 20:25 Fentanyl Citrate 250 ml @ 0 mls/hr Q24H IV 03/28/20 14:30 03/30/20 14:29 03/29/20 12:39 Furosemide (Lasix) 20 mg EVERY 12 HOURS IV 03/29/20 21:00 04/18/20 13:59 Hydralazine HCl (Apresoline) 10 mg Q6H PRN IV For High Blood Pressure 03/09/20 17:00 06/07/20 16:59 03/21/20 17:19 Insulin Aspart (NovoLOG) Q6HR SUBQ 03/10/20 00:00 03/29/20 19:59 03/29/20 12:08 Insulin Detemir (Levemir) 18 units Q12HR SUBQ 03/14/20 21:00 06/10/20 20:59 03/29/20 09:18 Labetalol HCl (Normodyne) 10 mg Q4H PRN IV sbp greater tahtn 160 03/28/20 17:30 04/27/20 17:29 Lactulose (Cephulac) 20 gm THREE TIMES A DAY ORAL 03/08/20 13:00 04/07/20 12:59 03/29/20 12:38 Meropenem 1 gm/ Sodium Chloride 100 ml @ 200 mls/hr Q8HR IVPB 03/29/20 15:00 04/03/20 14:59 Methylprednisolone Sodium Succinate (Solu-MEDROL) 40 mg EVERY 8 HOURS IVP 03/22/20 14:00 06/20/20 13:59 03/29/20 13:57 Metoclopramide HCl (Reglan) 5 mg Q6H IVP 03/29/20 09:00 04/28/20 08:59 03/29/20 09:17 Micafungin Sodium 100 mg/Sodium Chloride 100 ml @ 100 mls/hr Q24H IVPB 03/29/20 15:00 04/05/20 14:59 Midazolam HCl 100 ml @ 0 mls/hr Q24H PRN IV Agitation 03/28/20 14:30 03/30/20 14:29 Norepinephrine Bitartrate 250 ml @ 0 mls/hr Q24H PRN IV For hypotension 03/29/20 11:31 04/01/20 11:30 Pantoprazole (Protonix) 40 mg EVERY 12 HOURS ORAL 03/25/20 21:00 04/24/20 20:59 03/29/20 08:31 Polyethylene Glycol (Miralax) 17 gm BEDTIME ORAL 03/08/20 21:00 04/07/20 20:59 03/28/20 20:26 Sodium Chloride 250 ml @ 30 mls/hr ONCE ONCE IV 03/29/20 17:00 03/30/20 01:19 Trimethoprim/ Sulfamethoxazole (Bactrim-DS) 1 tab Q24H ORAL 03/29/20 17:00 04/05/20 16:59 Vancomycin HCl 300 ml @ 150 mls/hr Q12HR@0600,1800 IVPB 03/29/20 18:00 04/03/20 17:59 Vancomycin HCl (Vanco pharmacy to dose) 1 ea DAILY PRN MISC Per rx protocol 03/29/20 14:30 04/28/20 14:29 Vitamin D (Vitamin D) 5,000 unit DAILY ORAL 03/15/20 09:00 04/14/20 08:59 03/29/20 08:31 Kisha Salazar MD Mar 29, 2020 15:22
--- NOTE | 2020-03-29 16:20 | NUR ---
NURSE NOTES: Patient transferred to SDU at 1620. Report ggiven to Afsoon.
[2020-03-29] MEDS ORDERED: NaCl 3% 500ml 250 ML IV ONE (17:00)
--- NOTE | 2020-03-29 17:45 | NUR ---
NURSE NOTES: patient gave bed bath. did not tolerate well. patient desaturated. called RT on the bed side.
[2020-03-29] MEDS: Vancomycin 1.5gm/300ml Premix IVPB SCH (18:12)
[2020-03-29] MEDS: Bactrim-DS 1 tab ORAL SCH (18:17)
--- NOTE | 2020-03-29 18:48 | Cardiology Progress Note ---
Assessment/Plan Assessment/Plan Acute covid 19 pneumonia hypoxemia infiltrate bilat bacteremia hypernatremia / hyponatremia mild abn lfts tachy post intubation hr is better to day bp was low earlier rn called me i dcd tts patch ordered levo but seems bp improved hypoxemia unlikely cardiac related off anticoagulation except for dvt ppx dose continue supportive care not taking juan tomi by mahogany villeda been on tpn an on iv meds echo reviewed last on 03/28 still shows normla lv function no valve pathology cxr noted no change still with bilat infiltrate wbc increased previously has had higher diuretic to the point of hypernatremia to see if keeping dry would help his respiratory status but not successful he was on full dose heparin previously as well now on dvt ppx consider transfer to higher level tele reviewed cxr reviewed per radiologist pulm infiltrate unchanged to slightly worse remains critically still on max oxygen by vent still sat are on the lower side d/w rn diuretics held due to hypotension tpn dcd now on ngt feedign trial will observe Subjective Subjective pt in covid 19 isolation intubated , responsive not communicative n the vent Objective Last 24 Hour Vital Signs Date Time Temp Pulse Resp B/P (MAP) Pulse Ox O2 Delivery O2 Flow Rate FiO2 03/29/20 18:00 111 26 133/87 (102) 85 03/29/20 17:00 111 26 112/64 (80) 85 03/29/20 16:00 100 03/29/20 16:00 100 03/29/20 16:00 Mechanical Ventilator 03/29/20 16:00 99 18 99/65 (76) 89 03/29/20 15:05 99 18 100 03/29/20 15:00 103 18 106/72 (83) 92 03/29/20 14:00 98 19 93/60 (71) 92 03/29/20 13:00 98.6 99 18 91/56 (68) 94 03/29/20 12:39 19 83/57 Mechanical Ventilator 100 03/29/20 12:00 Mechanical Ventilator 03/29/20 12:00 100 03/29/20 12:00 96 19 84/55 (65) 92 03/29/20 12:00 95 03/29/20 11:28 103 18 100 03/29/20 11:00 94 18 83/57 (66) 93 03/29/20 10:20 111 18 100 03/29/20 10:00 113 18 111/71 (84) 97 03/29/20 09:30 100 03/29/20 09:00 117 16 119/74 (89) 95 03/29/20 08:08 117 03/29/20 08:00 Mechanical Ventilator 03/29/20 08:00 116 19 131/83 (99) 95 03/29/20 08:00 100 03/29/20 07:20 116 16 100 03/29/20 07:00 17 122/73 Mechanical Ventilator 100 03/29/20 07:00 115 17 122/73 (89) 95 03/29/20 06:41 100.0 03/29/20 06:00 17 123/80 Mechanical Ventilator 100 03/29/20 06:00 116 30 117/69 (85) 95 03/29/20 05:00 22 124/70 Mechanical Ventilator 100 03/29/20 05:00 114 32 115/66 (82) 95 03/29/20 04:00 112 03/29/20 04:00 34 109/65 Mechanical Ventilator 100 03/29/20 04:00 99.0 112 33 110/66 (81) 94 03/29/20 04:00 Mechanical Ventilator 03/29/20 04:00 100 03/29/20 03:20 114 17 100 03/29/20 03:00 112 31 130/75 (93) 95 03/29/20 03:00 31 119/81 Mechanical Ventilator 95 03/29/20 02:00 31 122/76 Mechanical Ventilator 100 03/29/20 02:00 113 29 123/74 (90) 96 03/29/20 01:00 119 17 122/76 (91) 97 03/29/20 01:00 18 122/76 Mechanical Ventilator 100 03/29/20 00:00 Mechanical Ventilator 03/29/20 00:00 100 03/29/20 00:00 20 122/78 Mechanical Ventilator 100 03/29/20 00:00 121 03/29/20 00:00 99.9 120 38 117/81 (93) 96 03/28/20 23:20 121 19 100 03/28/20 23:00 37 129/80 Mechanical Ventilator 100 03/28/20 23:00 122 36 127/81 (96) 96 03/28/20 22:00 37 118/76 Mechanical Ventilator 100 03/28/20 22:00 99.8 126 34 120/71 (87) 96 03/28/20 21:41 99.8 03/28/20 21:00 100.4 127 45 120/74 (89) 95 03/28/20 21:00 44 120/80 Mechanical Ventilator 100 03/28/20 20:30 43 120/80 Mechanical Ventilator 100 03/28/20 20:15 45 129/79 Mechanical Ventilator 100 03/28/20 20:00 Mechanical Ventilator 03/28/20 20:00 127 03/28/20 20:00 41 125/80 Mechanical Ventilator 100 03/28/20 20:00 127 41 125/88 (100) 93 03/28/20 20:00 100 03/28/20 19:20 126 24 100 03/28/20 19:00 44 132/84 Mechanical Ventilator 100 03/28/20 19:00 126 34 131/83 (99) 93 03/28/20 18:45 39 135/84 Mechanical Ventilator 100 General Appearance: no apparent distress, on vent, patient on isolation, isolat ion precautions Intake and Output 03/28/20 03/29/20 19:00 07:00 Intake Total 2332.50 ml 154.75 ml Output Total 300 ml 640 ml Balance 2032.50 ml -485.25 ml Free Water 260 ml IV Total 2072.50 ml 154.75 ml Output Urine Total 300 ml 640 ml Laboratory Tests Test 03/29/20 04:30 03/29/20 05:58 03/29/20 08:00 03/29/20 08:59 White Blood Count 17.8 K/UL (4.8-10.8) #H Red Blood Count 4.50 M/UL (4.70-6.10) L Hemoglobin 12.7 G/DL (14.2-18.0) L Hematocrit 40.0 % (42.0-52.0) L Mean Corpuscular Volume 89 FL (80-99) Mean Corpuscular Hemoglobin 28.3 PG (27.0-31.0) Mean Corpuscular Hemoglobin Concent 31.8 G/DL (32.0-36.0) L Red Cell Distribution Width 14.5 % (11.6-14.8) Platelet Count 261 K/UL (150-450) Mean Platelet Volume 6.6 FL (6.5-10.1) Neutrophils (%) (Auto) % (45.0-75.0) Lymphocytes (%) (Auto) % (20.0-45.0) Monocytes (%) (Auto) % (1.0-10.0) Eosinophils (%) (Auto) % (0.0-3.0) Basophils (%) (Auto) % (0.0-2.0) Differential Total Cells Counted 100 Neutrophils % (Manual) 86 % (45-75) H Lymphocytes % (Manual) 7 % (20-45) L Monocytes % (Manual) 7 % (1-10) Eosinophils % (Manual) 0 % (0-3) Basophils % (Manual) 0 % (0-2) Band Neutrophils 0 % (0-8) Platelet Estimate Adequate Platelet Morphology Normal Hypochromasia 1+ Anisocytosis 1+ Stomatocytes Occasional Sodium Level 132 MMOL/L (136-145) L Potassium Level 4.6 MMOL/L (3.5-5.1) Chloride Level 93 MMOL/L (98-107) L Carbon Dioxide Level 35 MMOL/L (21-32) H Anion Gap 4 mmol/L (5-15) L Blood Urea Nitrogen 34 mg/dL (7-18) H Creatinine 1.0 MG/DL (0.55-1.30) Estimat Glomerular Filtration Rate > 60 mL/min (>60) Glucose Level 153 MG/DL (74-106) H Uric Acid 2.8 MG/DL (2.6-7.2) Calcium Level 8.1 MG/DL (8.5-10.1) L Phosphorus Level 4.2 MG/DL (2.5-4.9) Magnesium Level 1.9 MG/DL (1.8-2.4) Total Bilirubin 0.6 MG/DL (0.2-1.0) Aspartate Amino Transf (AST/SGOT) 91 U/L (15-37) H Alanine Aminotransferase (ALT/SGPT) 287 U/L (12-78) H Alkaline Phosphatase 253 U/L (46-116) H Total Protein 6.2 G/DL (6.4-8.2) L Albumin 2.4 G/DL (3.4-5.0) L Globulin 3.8 g/dL Albumin/Globulin Ratio 0.6 (1.0-2.7) L POC Whole Blood Glucose 155 MG/DL (74-106) H Pending Arterial Blood pH 7.236 (7.350-7.450) Arterial Blood Partial Pressure CO2 90.8 mmHg (35.0-45.0) *H Arterial Blood Partial Pressure O2 75.1 mmHg (75.0-100.0) Arterial Blood HCO3 37.7 mmol/L (22.0-26.0) H Arterial Blood Oxygen Saturation 90.8 % (95-100) L Arterial Blood Base Excess 6.4 (-2-2) H Shemar Test Positive Test 03/29/20 11:40 03/29/20 11:56 Arterial Blood pH 7.377 (7.350-7.450) Arterial Blood Partial Pressure CO2 58.2 mmHg (35.0-45.0) *H Arterial Blood Partial Pressure O2 50.9 mmHg (75.0-100.0) L Arterial Blood HCO3 33.4 mmol/L (22.0-26.0) H Arterial Blood Oxygen Saturation 88.3 % (95-100) *L Arterial Blood Base Excess 6.8 (-2-2) H Shemar Test Positive POC Whole Blood Glucose Pending Objective pt in covid 19 isoaltion with acute infection Respiratory/Chest: normal breath sounds, no respiratory distress, no accessory muscle use, crackles/rales - less , rhonchi - bilaterally - less Cardiovascular: normal rate, regular rhythm, no gallop/murmur Abdomen: normal bowel sounds, soft, non tender, no organomegaly, non distended Extremities: no cyanosis Manan Awan MD Mar 29, 2020 18:48
--- NOTE | 2020-03-29 18:52 | NUR ---
INSURANCE CLINCALS AND REVIEW FAXED TO [employer] T: [phone] #1 F: [phone] AND [employer] OPERATOR:JACQUELINE JAMES [phone] F: [phone]
--- NOTE | 2020-03-29 19:21 | NUR ---
NURSE NOTES: Report received from PRIYANKA Leahy. Observed pt lying in the bed, sedated, RASS -[address] with HR of 105 noted. ETT to vent, AC 18/750/100%/PEEP 5, saturating at 86% at this time. OGT has residual noted, feeding on hold at this time. F/C intact. WAYNE double lumen, fentanyl at 130mcg at this time. Bed in the lowest position. Side rails up x3. Will continue to monitor.
--- NOTE | 2020-03-29 19:21 | NUR ---
NURSE HAND-OFF REPORT: Latest Vital Signs: Temperature 98.6 , Pulse 111 , B/P 121 /83 , Respiratory Rate 21 , O2 SAT 85 , Mechanical Ventilator, O2 Flow Rate . Vital Sign Comment: stable EKG Rhythm: Sinus Rhythm Rhythm change?: N Notified?: Y -Dr.Toluie INTERIANO Response: Message left await call Latest Hassan Fall Score: 45 Fall Risk: High Risk Safety Measures: Call light Within Reach, Bed Alarm Zone 2, Side Rails Side Rails x2, Bed position Low and Locked. Fall Precautions: Yellow Socks Yellow Gown Door Sign Patient Fall Education Report given to PRIYANKA Connor.
[2020-03-29] MEDS: Miralax 17gm pkt ORAL SCH (21:00)
[2020-03-29] MEDS: D5NS 1,000 ML IV SCH (21:07)
--- NOTE | 2020-03-29 22:26 | NUR ---
NURSE NOTES: No acute change noted at this time. Tolerating vent setting, AC18/750/100%/PEEP 5, saturating 94% at this time. OGT residual noted >100cc, feeding still on hold. Will continue to monitor .
[2020-03-30] VITALS (40 sets, daily range): BP systolic 97–184; BP diastolic 62–115
[2020-03-30] MEDS ORDERED: NovoLOG Insulin Flexpen SUBQ SCH
--- NOTE | 2020-03-30 | NUR ---
NURSE NOTES: No acute change noted at this time. Tolerating current vent setting. VS stable. Will continue to monitor.
[2020-03-30 01:29] LABS: BILIRUBIN, URINE NEGATIVE (NEGATIVE); GLUCOSE, URINE (UA) NEGATIVE (NEGATIVE); KETONES,URINE NEGATIVE (NEGATIVE); LEUKOCYTE ESTERASE ,URINE 1+ (NEGATIVE); NITRITE,URINE NEGATIVE (NEGATIVE); PH,URINE 6 (4.5-8.0); PROTEIN,URINE 2+ (NEGATIVE); UROBILINOGEN,URINE 4 MG/DL (0.0-1.0)
--- NOTE | 2020-03-30 01:30 | NUR ---
NURSE NOTES: No acute change noted at this time. SR noted. Tolerating current vent setting, saturating at 95%. Urine, sputum, covid swab sent to lab. Reposition done. Oral care given. will continue to monitor .
[2020-03-30 01:51] LABS: APPEARANCE,URINE SLIGHTLY CLOUDY; COLOR,URINE YELLOW
[2020-03-30] MEDS: Metoclopramide 10mg/2ml Inj IVP SCH ×4 (03:06→20:49)
--- NOTE | 2020-03-30 03:30 | NUR ---
NURSE NOTES: No acute change noted. RASS of -2 noted. SR noted. Tolerating current vent setting, saturating at 95%. Reposition done. Oral care given. Will continue to monitor.
[2020-03-30 05:08] LABS: HEMATOCRIT 34.9 % (42.0-52.0); HEMOGLOBIN 11.1 G/DL (14.2-18.0); MEAN CORPUSCULAR VOLUME 88 FL (80-99); PLATELET COUNT 194 K/UL (150-450); RED BLOOD COUNT 3.97 M/UL (4.70-6.10); RED CELL DISTRIBUTION WIDTH 14.4 % (11.6-14.8); WHITE BLOOD COUNT 12.9 K/UL (4.8-10.8)
[2020-03-30] MEDS: fentaNYL 2500mcg/NS 250ml 250 ML IV SCH ×2 (05:18→20:51)
[2020-03-30 05:24] LABS: ALANINE AMINOTRANSFERASE 228 U/L (12-78); ALBUMIN 2.1 G/DL (3.4-5.0); ALBUMIN/GLOBULIN RATIO 0.6 (1.0-2.7); ALKALINE PHOSPHATASE 202 U/L (46-116); ANION GAP 2 mmol/L (5-15); ASPARTATE AMINO TRANSFERASE 58 U/L (15-37); BILIRUBIN,TOTAL 0.5 MG/DL (0.2-1.0); BLOOD UREA NITROGEN 31 mg/dL (7-18); CALCIUM 8.4 MG/DL (8.5-10.1); CARBON DIOXIDE 36 MMOL/L (21-32); CHLORIDE 97 MMOL/L (98-107); CREATININE 0.9 MG/DL (0.55-1.30); POTASSIUM 4.3 MMOL/L (3.5-5.1); SODIUM 135 MMOL/L (136-145)
--- NOTE | 2020-03-30 05:27 | NUR ---
NURSE NOTES: No acute change at this time. Pt sedated, RASS -2 noted. VS stable. Will continue to monitor.
[2020-03-30] MEDS: NovoLOG Insulin Flexpen SUBQ SCH ×4 (05:54→17:50)
[2020-03-30] MEDS: Solu-MEDROL 40mg Inj IVP SCH ×3 (05:58→21:39)
[2020-03-30] MEDS: Vancomycin 1.5gm/300ml Premix IVPB SCH ×2 (05:58→17:57)
--- NOTE | 2020-03-30 07:24 | NUR ---
NURSE HAND-OFF REPORT: Pt tolerating vent, AC 16/500/30%/PEEP 5 saturating between 88-95%. SR noted. Latest Vital Signs: Temperature 99.0 , Pulse 85 , B/P 104 /68 , Respiratory Rate 19 , O2 SAT 91 , Mechanical Ventilator, O2 Flow Rate . Vital Sign Comment: [] EKG Rhythm: Sinus Rhythm Rhythm change?: N MD Notified?: Courtney Paige MD Response: Message left await call Latest Hassan Fall Score: 45 Fall Risk: High Risk Safety Measures: Call light Within Reach, Bed Alarm Zone 2, Side Rails Side Rails x2, Bed position Low and Locked. Fall Precautions: Yellow Socks Yellow Gown Door Sign Patient Fall Education Report given to PRIYANKA Pérez.
--- NOTE | 2020-03-30 07:25 | NUR ---
NURSE NOTES: Report received from Camille Stephenson RN. Observed pt lying in the bed, lightly sedated, RASS -[address] with HR of 110 noted. ETT to vent, AC 18/750/100%/PEEP 5, saturating at 91% at this time. OGT has no residual noted. F/C intact. WAYNE double lumen, fentanyl at 150mcg at this time. Bed in the lowest position. Side rails up x3. Will continue to monitor. Airborne isolation observed.
--- NOTE | 2020-03-30 09:30 | NUR ---
RESPIRATORY NOTE: Increased PEEP to +8 post ABG to improve oxygenation. RN aware.
[2020-03-30] MEDS: Lactulose 20gm/30ml UDC ORAL SCH ×3 (09:47→17:56)
[2020-03-30] MEDS: Vitamin D 1000 units Tab ORAL SCH (09:48)
[2020-03-30] MEDS: Enoxaparin 40mg Inj SUBQ SCH (09:49)
[2020-03-30] MEDS: Levemir Flexpen SUBQ SCH (09:50)
--- NOTE | 2020-03-30 10:52 | Diagnostic Imaging Report ---
Procedure: XRAY Chest 1v Reason for study: Shortness of breath. Comparison films: 03/29/2020. FINDINGS: Endotracheal tube, NG tube and left PICC line remain in place. Bibasilar infiltrates not significantly changed. Cardiac and mediastinal silhouette are within normal limits. CP angles are sharp. The bony thorax appear unremarkable. IMPRESSION: NO SIGNIFICANT CHANGE COMPARED TO PREVIOUS EXAM.
--- NOTE | 2020-03-30 11:04 | NUR ---
CASE MANAGEMENT:REVIEW 03/30/20 SI: COVID PNA. UTI. RESP FAILURE~INTUBATED 99.1 120 23 182/100 88% ON VENT SUPPORT W/100% FIO2 WBC+12.9 CO2+36 BUN+31 AST/ALT+58/228 IS: FENTANYL GTT IV SOLUMEDROL 40MG Q8HRS BACTRIM NG Q8HRS IV VANCOMYCIN Q12 IV MEROPENEM Q8HRS IV MICAFUNGIN Q24 IV LASIX Q12HR IV REGLAN Q6HRS LOVENOX SQ QD : TRANSFERRED TO ICU
--- NOTE | 2020-03-30 11:33 | NUR ---
RADIOLOGY DEPT., CHEST X-RAY DONE.-P.DYE
--- NOTE | 2020-03-30 11:40 | General Progress Note ---
Subjective ROS Limited/Unobtainable: No Allergies: Coded Allergies: No Known Allergies (Unverified , 02/05/20) Objective Last 24 Hour Vital Signs Date Time Temp Pulse Resp B/P (MAP) Pulse Ox O2 Delivery O2 Flow Rate FiO2 03/30/20 10:00 121 18 173/106 (128) 92 03/30/20 09:45 120 16 184/110 (134) 90 03/30/20 09:40 120 16 182/104 (130) 90 03/30/20 09:30 120 18 178/107 (130) 88 03/30/20 09:30 100 03/30/20 09:00 113 23 182/100 (127) 82 03/30/20 08:00 Mechanical Ventilator 03/30/20 08:00 99.1 81 18 102/69 (80) 88 03/30/20 08:00 100 03/30/20 07:36 87 03/30/20 07:00 85 19 104/68 (80) 91 03/30/20 07:00 15 108/71 Mechanical Ventilator 100 03/30/20 06:00 85 17 97/65 (76) 93 03/30/20 06:00 17 102/69 Mechanical Ventilator 100 03/30/20 05:18 18 98/74 Mechanical Ventilator 100 03/30/20 05:00 88 15 99/72 (81) 93 03/30/20 04:51 17 102/72 Mechanical Ventilator 100 03/30/20 04:00 99.0 94 18 121/77 (92) 93 03/30/20 04:00 Mechanical Ventilator 03/30/20 04:00 17 110/72 Mechanical Ventilator 100 03/30/20 04:00 100 03/30/20 04:00 86 03/30/20 03:14 87 18 100 03/30/20 03:00 85 16 108/83 (91) 95 03/30/20 03:00 18 108/83 Mechanical Ventilator 100 03/30/20 02:00 89 16 100/64 (76) 95 03/30/20 02:00 16 103/64 Mechanical Ventilator 100 03/30/20 01:00 18 104/66 Mechanical Ventilator 100 03/30/20 01:00 94 15 99/62 (74) 95 03/30/20 00:30 16 104/66 Mechanical Ventilator 100 03/30/20 00:15 14 117/74 Mechanical Ventilator 100 03/30/20 00:00 Mechanical Ventilator 03/30/20 00:00 95 03/30/20 00:00 16 132/80 Mechanical Ventilator 100 03/30/20 00:00 100 03/30/20 00:00 98.3 95 16 114/78 (90) 96 03/29/20 23:29 95 18 100 03/29/20 23:00 19 104/70 Mechanical Ventilator 100 03/29/20 23:00 93 18 100/63 (75) 95 03/29/20 22:00 102 03/29/20 22:00 18 107/69 Mechanical Ventilator 100 03/29/20 22:00 99 18 101/67 (78) 94 03/29/20 21:36 98.5 03/29/20 21:07 18 101/67 Mechanical Ventilator 100 03/29/20 21:00 104 21 108/74 (85) 92 03/29/20 21:00 18 106/65 Mechanical Ventilator 100 03/29/20 20:00 Mechanical Ventilator 03/29/20 20:00 100 03/29/20 20:00 99.0 104 25 131/86 (101) 89 03/29/20 20:00 29 128/90 Mechanical Ventilator 100 03/29/20 19:15 21 121/83 Mechanical Ventilator 100 03/29/20 19:14 106 19 100 03/29/20 19:00 106 19 130/90 (103) 86 03/29/20 18:15 21 133/87 Mechanical Ventilator 100 03/29/20 18:00 19 148/87 Mechanical Ventilator 100 03/29/20 18:00 111 26 133/87 (102) 85 03/29/20 17:45 20 149/90 Mechanical Ventilator 100 03/29/20 17:30 22 181/85 Mechanical Ventilator 100 03/29/20 17:00 111 26 112/64 (80) 85 03/29/20 16:39 18 112/64 Mechanical Ventilator 100 03/29/20 16:00 100 03/29/20 16:00 100 03/29/20 16:00 Mechanical Ventilator 03/29/20 16:00 99 18 99/65 (76) 89 03/29/20 15:39 18 108/69 Mechanical Ventilator 100 03/29/20 15:05 99 18 100 03/29/20 15:00 103 18 106/72 (83) 92 03/29/20 14:39 18 100/62 Mechanical Ventilator 100 03/29/20 14:00 98 19 93/60 (71) 92 03/29/20 13:39 18 94/63 Mechanical Ventilator 100 03/29/20 13:00 98.6 99 18 91/56 (68) 94 03/29/20 12:39 19 83/57 Mechanical Ventilator 100 03/29/20 12:00 Mechanical Ventilator 03/29/20 12:00 100 03/29/20 12:00 96 19 84/55 (65) 92 03/29/20 12:00 95 Intake and Output 03/29/20 03/30/20 19:00 07:00 Intake Total 737.75 ml 983.91 ml Output Total 265 ml 555 ml Balance 472.75 ml 428.91 ml Free Water 210 ml 10 ml IV Total 487.75 ml 883.91 ml Tube Feeding 40 ml 60 ml Blood Product 30 ml Output Urine Total 265 ml 555 ml Laboratory Tests 03/29/20 11:40: Arterial Blood pH 7.377, Arterial Blood Partial Pressure CO2 58.2*H, Arterial Blood Partial Pressure O2 50.9L, Arterial Blood HCO3 33.4H, Arterial Blood Oxygen Saturation 88.3*L, Arterial Blood Base Excess 6.8H, Shemar Test Positive 03/29/20 11:56: POC Whole Blood Glucose [Pending] 03/29/20 18:30: POC Whole Blood Glucose [Pending] 03/29/20 18:57: Urine Color Yellow, Urine Appearance Slightly cloudy, Urine pH 6, Urine Specific [place] 1.020, Urine Protein 2+H, Urine Glucose (UA) Negative, Urine Ketones N egative, Urine Blood 5+H, Urine Nitrite Negative, Urine Bilirubin Negative, Urine Urobilinogen 4H, Urine Leukocyte Esterase 1+H, Urine RBC 2-4H, Urine WBC 0-2, Urine Squamous Epithelial Cells Occasional, Urine Uric Acid Crystals FewH, Urine Bacteria ManyH, Urine Hyaline Casts 0-2H 03/29/20 21:32: POC Whole Blood Glucose 108H 03/30/20 02:55: White Blood Count 12.9H, Red Blood Count 3.97L, Hemoglobin 11.1L, Hematocrit 34.9L, Mean Corpuscular Volume 88, Mean Corpuscular Hemoglobin 27.9, Mean Corpuscular Hemoglobin Concent 31.7L, Red Cell Distribution Width 14.4, Platelet Count 194, Mean Platelet Volume 6.7, Neutrophils (%) (Auto) , Lymphocytes (%) (Auto) , Monocytes (%) (Auto) , Eosinophils (%) (Auto) , Basophils (%) (Auto) , Differential Total Cells Counted 100, Neutrophils % (Manual) 85H, Lymphocytes % (Manual) 10L, Monocytes % (Manual) 4, Eosinophils % (Manual) 0, Basophils % (Manual) 1, Band Neutrophils 0, Platelet Estimate Adequate, Platelet Morphology Normal, Sodium Level 135L, Potassium Level 4.3, Chloride Level 97L, Carbon Dioxide Level 36H, Anion Gap 2L, Blood Urea Nitrogen 31H, Creatinine 0.9, Estimat Glomerular Filtration Rate > 60, Glucose Level 95, Calcium Level 8.4L, Total Bilirubin 0.5, Aspartate Amino Transf (AST/SGOT) 58H, Alanine Aminotransferase (ALT/SGPT) 228H, Alkaline Phosphatase 202H, Total Protein 5.4L, Albumin 2.1L, Globulin 3.3, Albumin/Globulin Ratio 0.6L 03/30/20 05:50: POC Whole Blood Glucose 104 03/30/20 08:03: Arterial Blood pH 7.415, Arterial Blood Partial Pressure CO2 53.2H, Arterial Blood Partial Pressure O2 47.8*L, Arterial Blood HCO3 33.3H, Arterial Blood Oxygen Saturation 84.2*L, Arterial Blood Base Excess 7.5H, Shemar Test Positive 03/30/20 08:36: POC Whole Blood Glucose 101 Height (Feet): 5 Height (Inches): 10.00 Weight (Pounds): 240 General Appearance: no apparent distress EENT: normal ENT inspection Neck: supple Cardiovascular: normal rate Respiratory/Chest: decreased breath sounds Abdomen: normal bowel sounds, non tender, soft Extremities: non-tender Assessment/Plan Status: stable, progressing Assessment/Plan: covid + on BIPAP DM HTN FTT constipation hep c + but neg RNA intubated OGT increase reglan 10 10 mg Da Quintero MD Mar 30, 2020 11:40
--- NOTE | 2020-03-30 12:20 | Nephrology Progress Note ---
Assessment/Plan Problem List: (1) Dehydration (2) Electrolyte imbalance (3) COVID-19 virus infection (4) Pneumonia (5) DMII (diabetes mellitus, type 2) (6) Protein malnutrition Assessment Azotemia, hypernatremia Hypoalbuminemia Staff Otilia bacteremia COVID-19 isolation, pneumonia, bilateral infiltrate Hypertension Diabetes mellitus History of smoking Plan March 30: Full code. On ventilator. Labs reviewed. Clonidine patch dose increased. Lasix increased. 3% saline 1 time ordered. Continue to monitor electrolytes and renal parameters. March 29: Remains full code. On mechanical ventilation. On tube feeding. Will DC TPN. Will start on maintenance IV fluid. Continue to monitor renal parameters. March 28: On BiPAP. Full code. On TPN. Labs reviewed. Discussed with pharmacy. Continue as is. Watch serum potassium. March 27: Remains on BiPAP. No chemistry panel done today. Full code. On TPN. Will check lab tomorrow. March 26: Remains on BiPAP. Remains on TPN. Labs reviewed. Electrolytes and chemistries within normal limits. Continue as is. March 25: Remains on TPN. Labs reviewed. Discussed with pharmacy. Change IV Protonix to p.o. Continue 3% saline infusion with Lasix. Patient full code. March 24: Continue to be on TPN. Labs are reviewed. Aim to collect electrolytes. Discussed with pharmacy. Continue current consultants. March 23: Continues to be on TPN. Labs reviewed. Electrolytes and coal chemist jose angel all acceptable. Discussed with pharmacy. Continue current management. March 22: On TPN. Labs reviewed. Low sodium noted. 3% saline to be continued. Continue to monitor electrolytes. Discussed with pharmacy. March 21: On TPN. Labs reviewed. Continue 3% saline and Lasix for mild hyponatremia. Continue TPN as these. Discussed with pharmacy. March 20: Remains on TPN. Labs reviewed. Serum sodium higher on IV Lasix and 3% saline infusion. Continue TPN as is. Continue to monitor renal parameters and electrolytes. Discussed with Dr. Mata March 19: Remains on TPN. Labs reviewed. Serum sodium 128. Will give 3% saline with IV Lasix. Continue to monitor electrolytes. No change in TPN composition. Discussed with pharmacy. March 18: Remains on TPN. Labs reviewed. Discussed with pharmacist. Will give 3 doses of IV Lasix 20 mg every 8 hours. Continue to monitor serum sodium electrolytes uric acid. White blood cells down. Continue per consultants. March 17: On TPN. Labs reviewed. Discussed with pharmacist. Sodium content increase. Continue to monitor CMP. Patient continues to have leukocytosis. March 16: On TPN. Labs reviewed. Discussed with pharmacist. Appropriate changes made. Continue to monitor electrolytes. March 15: Remains on TPN. Labs reviewed. Discussed with pharmacist. Continue per current management. March 14: Remains on TPN. Labs reviewed, stable. Vitamin D level low, replacement ordered. Continue to monitor electrolytes and renal parameters. March 13: Patient remains on TPN. Discussed with pharmacist. TPN's sodium content adjusted. Labs reviewed. Continue to monitor electrolytes. Blood pressure remains stable. Continue per consultants. March 12: Patient on TPN. Labs reviewed. CPK remains elevated. Abnormal electrolytes and high blood sugar discussed with pharmacist and TPN adjusted. Continue to monitor labs. Oral Protonix added. Ibuprofen discontinued. Can continue to monitor electrolytes and chemistries. Levemir for high blood sugar added. March 11: Patient on TPN. Labs as of 11:15 AM is still pending. Continue per current treatment plan. Will check labs and adjust TPN as needed. Continue per consultants. March 10: Patient on TPN. Labs reviewed. Electrolytes overall stable. CPK is elevated. Will monitor electrolyte, CPK level, lipid panel. Continue per consultants. Discussed with pharmacist. Discussed with RN. Nutritional evaluation noted. Previously: D5W 100 cc an hour Monitor electrolytes renal parameters TPN and Intralipid ordered Will follow Continue per consultants Dietary consult requested Subjective ROS Limited/Unobtainable: Yes Objective Objective Last 24 Hour Vital Signs Date Time Temp Pulse Resp B/P (MAP) Pulse Ox O2 Delivery O2 Flow Rate FiO2 03/30/20 12:00 128 25 162/102 (122) 96 03/30/20 11:45 129 21 163/106 (125) 97 03/30/20 11:43 128 22 170/107 (128) 98 03/30/20 11:30 129 14 170/108 (128) 97 03/30/20 11:27 129 03/30/20 11:15 129 17 174/109 (130) 96 03/30/20 11:00 129 17 180/114 (136) 95 03/30/20 10:45 128 17 168/111 (130) 95 03/30/20 10:30 125 18 175/115 (135) 95 03/30/20 10:15 123 16 164/98 (120) 94 03/30/20 10:00 121 18 173/106 (128) 92 03/30/20 09:45 120 16 184/110 (134) 90 03/30/20 09:40 120 16 182/104 (130) 90 03/30/20 09:30 120 18 178/107 (130) 88 03/30/20 09:30 100 03/30/20 09:00 113 23 182/100 (127) 82 03/30/20 08:00 Mechanical Ventilator 03/30/20 08:00 99.1 81 18 102/69 (80) 88 03/30/20 08:00 100 03/30/20 07:36 87 03/30/20 07:00 85 19 104/68 (80) 91 03/30/20 07:00 15 108/71 Mechanical Ventilator 100 03/30/20 06:00 85 17 97/65 (76) 93 03/30/20 06:00 17 102/69 Mechanical Ventilator 100 03/30/20 05:18 18 98/74 Mechanical Ventilator 100 03/30/20 05:00 88 15 99/72 (81) 93 03/30/20 04:51 17 102/72 Mechanical Ventilator 100 03/30/20 04:00 99.0 94 18 121/77 (92) 93 03/30/20 04:00 Mechanical Ventilator 03/30/20 04:00 17 110/72 Mechanical Ventilator 100 03/30/20 04:00 100 03/30/20 04:00 86 03/30/20 03:14 87 18 100 03/30/20 03:00 85 16 108/83 (91) 95 03/30/20 03:00 18 108/83 Mechanical Ventilator 100 03/30/20 02:00 89 16 100/64 (76) 95 03/30/20 02:00 16 103/64 Mechanical Ventilator 100 03/30/20 01:00 18 104/66 Mechanical Ventilator 100 03/30/20 01:00 94 15 99/62 (74) 95 03/30/20 00:30 16 104/66 Mechanical Ventilator 100 03/30/20 00:15 14 117/74 Mechanical Ventilator 100 03/30/20 00:00 Mechanical Ventilator 03/30/20 00:00 95 03/30/20 00:00 16 132/80 Mechanical Ventilator 100 03/30/20 00:00 100 03/30/20 00:00 98.3 95 16 114/78 (90) 96 03/29/20 23:29 95 18 100 03/29/20 23:00 19 104/70 Mechanical Ventilator 100 03/29/20 23:00 93 18 100/63 (75) 95 03/29/20 22:00 102 03/29/20 22:00 18 107/69 Mechanical Ventilator 100 03/29/20 22:00 99 18 101/67 (78) 94 03/29/20 21:36 98.5 03/29/20 21:07 18 101/67 Mechanical Ventilator 100 03/29/20 21:00 104 21 108/74 (85) 92 03/29/20 21:00 18 106/65 Mechanical Ventilator 100 03/29/20 20:00 Mechanical Ventilator 03/29/20 20:00 100 03/29/20 20:00 99.0 104 25 131/86 (101) 89 03/29/20 20:00 29 128/90 Mechanical Ventilator 100 03/29/20 19:15 21 121/83 Mechanical Ventilator 100 03/29/20 19:14 106 19 100 03/29/20 19:00 106 19 130/90 (103) 86 03/29/20 18:15 21 133/87 Mechanical Ventilator 100 03/29/20 18:00 19 148/87 Mechanical Ventilator 100 03/29/20 18:00 111 26 133/87 (102) 85 03/29/20 17:45 20 149/90 Mechanical Ventilator 100 03/29/20 17:30 22 181/85 Mechanical Ventilator 100 03/29/20 17:00 111 26 112/64 (80) 85 03/29/20 16:39 18 112/64 Mechanical Ventilator 100 03/29/20 16:00 100 03/29/20 16:00 100 03/29/20 16:00 Mechanical Ventilator 03/29/20 16:00 99 18 99/65 (76) 89 03/29/20 15:39 18 108/69 Mechanical Ventilator 100 03/29/20 15:05 99 18 100 03/29/20 15:00 103 18 106/72 (83) 92 03/29/20 14:39 18 100/62 Mechanical Ventilator 100 03/29/20 14:00 98 19 93/60 (71) 92 03/29/20 13:39 18 94/63 Mechanical Ventilator 100 03/29/20 13:00 98.6 99 18 91/56 (68) 94 03/29/20 12:39 19 83/57 Mechanical Ventilator 100 Intake and Output 03/29/20 03/30/20 19:00 07:00 Intake Total 737.75 ml 983.91 ml Output Total 265 ml 555 ml Balance 472.75 ml 428.91 ml Free Water 210 ml 10 ml IV Total 487.75 ml 883.91 ml Tube Feeding 40 ml 60 ml Blood Product 30 ml Output Urine Total 265 ml 555 ml Current Medications Medications (Trade) Dose Ordered Sig/Dennis Route PRN Reason Start Time Stop Time Status Last Admin Dose Admin Acetaminophen (Tylenol) 650 mg Q4H PRN ORAL Mild Pain (Pain Scale 1-3) 03/09/20 12:00 04/08/20 11:59 03/29/20 21:06 Bisacodyl (Dulcolax) 10 mg HSPRN PRN RECTAL Constipation 02/05/20 13:15 05/05/20 13:14 Bisacodyl (Dulcolax) 10 mg Q12H PRN RECTAL Constipation 03/18/20 16:45 06/16/20 16:44 Chlorhexidine Gluconate (Marlen-Hex 2%) 1 applic DAILY@2000 TOPIC 03/30/20 20:00 06/28/20 19:59 Clonidine HCl (Catapres TTS-3) 1 patch QWEEK TDERMAL 03/30/20 15:00 06/28/20 14:59 Dextrose (Dextrose 50%) 25 ml Q30M PRN IV Hypoglycemia 03/29/20 20:45 06/27/20 20:44 Dextrose (Dextrose 50%) 50 ml Q30M PRN IV Hypoglycemia 03/29/20 20:45 06/27/20 20:44 Dextrose/Sodium Chloride 1,000 ml @ 50 mls/hr Q20H IV 03/29/20 20:45 04/28/20 20:44 03/29/20 21:07 Enoxaparin Sodium (Lovenox) 40 mg DAILY SUBQ 03/13/20 12:00 06/11/20 11:59 03/30/20 09:49 Fentanyl Citrate 250 ml @ 0 mls/hr Q24H IV 03/28/20 14:30 03/30/20 14:29 03/30/20 05:18 Furosemide (Lasix) 20 mg EVERY 12 HOURS IV 03/29/20 21:00 04/18/20 13:59 03/30/20 09:48 Hydralazine HCl (Apresoline) 10 mg Q4H PRN IV For High Blood Pressure 03/30/20 12:15 06/28/20 12:14 Insulin Aspart (NovoLOG) Q6HR SUBQ 03/30/20 00:00 06/28/20 00:00 Insulin Detemir (Levemir) 10 units Q12HR SUBQ 03/31/20 09:00 06/10/20 20:59 UNV Labetalol HCl (Normodyne) 10 mg Q4H PRN IV sbp greater tahtn 160 03/28/20 17:30 04/27/20 17:29 Lactulose (Cephulac) 20 gm THREE TIMES A DAY ORAL 03/08/20 13:00 04/07/20 12:59 03/30/20 09:47 Meropenem 1 gm/ Sodium Chloride 100 ml @ 200 mls/hr Q8HR IVPB 03/29/20 15:00 04/03/20 14:59 03/30/20 05:58 Methylprednisolone Sodium Succinate (Solu-MEDROL) 40 mg EVERY 8 HOURS IVP 03/22/20 14:00 06/20/20 13:59 03/30/20 05:58 Metoclopramide HCl (Reglan) 10 mg Q6H IVP 03/30/20 15:00 04/29/20 14:59 Micafungin Sodium 100 mg/Sodium Chloride 100 ml @ 100 mls/hr Q24H IVPB 03/29/20 15:00 04/05/20 14:59 03/29/20 15:50 Midazolam HCl 100 ml @ 0 mls/hr Q24H PRN IV Agitation 03/28/20 14:30 03/30/20 14:29 Norepinephrine Bitartrate 250 ml @ 0 mls/hr Q24H PRN IV For hypotension 03/29/20 11:31 04/01/20 11:30 Polyethylene Glycol (Miralax) 17 gm BEDTIME ORAL 03/08/20 21:00 04/07/20 20:59 03/28/20 20:26 Trimethoprim/ Sulfamethoxazole (Bactrim-DS) 1 tab Q24H ORAL 03/29/20 17:00 04/05/20 16:59 03/29/20 18:17 Vancomycin HCl 300 ml @ 150 mls/hr Q12HR@0600,1800 IVPB 03/29/20 18:00 04/03/20 17:59 03/30/20 05:58 Vancomycin HCl (Vanco pharmacy to dose) 1 ea DAILY PRN MISC Per rx protocol 03/29/20 14:30 04/28/20 14:29 Vitamin D (Vitamin D) 5,000 unit DAILY ORAL 03/15/20 09:00 04/14/20 08:59 03/30/20 09:48 Laboratory Tests 03/29/20 18:30: POC Whole Blood Glucose [Pending] 03/29/20 18:57: Urine Color Yellow, Urine Appearance Slightly cloudy, Urine pH 6, Urine Specific [place] 1.020, Urine Protein 2+H, Urine Glucose (UA) Negative, Urine Ketones Negative, Urine Blood 5+H, Urine Nitrite Negative, Urine Bilirubin Negative, Urine Urobilinogen 4H, Urine Leukocyte Esterase 1+H, Urine RBC 2-4H, Urine WBC 0-2, Urine Squamous Epithelial Cells Occasional, Urine Uric Acid Crystals FewH, Urine Bacteria ManyH, Urine Hyaline Casts 0-2H 03/29/20 21:32: POC Whole Blood Glucose 108H 03/30/20 02:55: White Blood Count 12.9H, Red Blood Count 3.97L, Hemoglobin 11.1L, Hematocrit 34.9L, Mean Corpuscular Volume 88, Mean Corpuscular Hemoglobin 27.9, Mean Corpuscular Hemoglobin Concent 31.7L, Red Cell Distribution Width 14.4, Platelet Count 194, Mean Platelet Volume 6.7, Neutrophils (%) (Auto) , Lymphocytes (%) (Auto) , Monocytes (%) (Auto) , Eosinophils (%) (Auto) , Basophils (%) (Auto) , Differential Total Cells Counted 100, Neutrophils % (Manual) 85H, Lymphocytes % (Manual) 10L, Monocytes % (Manual) 4, Eosinophils % (Manual) 0, Basophils % (Manual) 1, Band Neutrophils 0, Platelet Estimate Adequate, Platelet Morphology Normal, Sodium Level 135L, Potassium Level 4.3, Chloride Level 97L, Carbon Dioxide Level 36H, Anion Gap 2L, Blood Urea Nitrogen 31H, Creatinine 0.9, Estimat Glomerular Filtration Rate > 60, Glucose Level 95, Calcium Level 8.4L, Phosphorus Level [Pending], Magnesium Level [Pending], Total Bilirubin 0.5, Aspartate Amino Transf (AST/SGOT) 58H, Alanine Aminotransferase (ALT/SGPT) 228H, Alkaline Phosphatase 202H, Total Protein 5.4L, Albumin 2.1L, Globulin 3.3, Albumin/Globulin Ratio 0.6L 03/30/20 05:50: POC Whole Blood Glucose 104 03/30/20 08:03: Arterial Blood pH 7.415, Arterial Blood Partial Pressure CO2 53.2H, Arterial Blood Partial Pressure O2 47.8*L, Arterial Blood HCO3 33.3H, Arterial Blood Oxygen Saturation 84.2*L, Arterial Blood Base Excess 7.5H, Shemar Test Positive 03/30/20 08:36: POC Whole Blood Glucose 101 03/30/20 12:03: POC Whole Blood Glucose 122H Height (Feet): 5 Height (Inches): 10.00 Weight (Pounds): 240 General Appearance: no apparent distress EENT: other - Intubated on ventilator Cardiovascular: tachycardia Respiratory/Chest: decreased breath sounds Abdomen: distended Rubin Cooper MD Mar 30, 2020 12:20
[2020-03-30 12:24] LABS: PHOSPHORUS 2.9 MG/DL (2.5-4.9)
[2020-03-30] MEDS ORDERED: NaCl 3% 500ml 250 ML IV ONE (14:00)
--- NOTE | 2020-03-30 15:03 | NUR ---
insurance [employer] AND REVIEW FAXED TO [employer] T: [phone] #1 F: [phone] AND [employer] OPERATOR:JACQUELINE JAMES [phone] F: [phone]
[2020-03-30] MEDS: Bactrim-DS 1 tab ORAL SCH (17:56)
[2020-03-30] MEDS: D5NS 1,000 ML IV SCH (17:57)
--- NOTE | 2020-03-30 19:11 | Cardiology Progress Note ---
Assessment/Plan Assessment/Plan Acute covid 19 pneumonia hypoxemia infiltrate bilat bacteremia hypernatremia / hyponatremia mild abn lfts tachy post intubation hr is better t bp imporioved hypoxemia unlikely cardiac related off anticoagulation except for dvt ppx dose continue supportive care tube feedin echo reviewed last on 03/28 still shows normla lv function no valve pathology cxr noted no change still with bilat infiltrate agian today wbc imporved previously has had higher diuretic to the point of hypernatremia to see if keeping dry would help his respiratory status but not successful he was on full dose heparin previously as well now on dvt ppx consider transfer to higher level tele reviewed sinus remains critically still on max oxygen but improved with sedation and increased peep d/w rn diuretics held due to hypotension will observe Subjective ROS Limited/Unobtainable: Yes Subjective pt in covid 19 isolation intubated , responsive not communicative n the vent Objective Last 24 Hour Vital Signs Date Time Temp Pulse Resp B/P (MAP) Pulse Ox O2 Delivery O2 Flow Rate FiO2 03/30/20 18:00 106 19 124/83 (97) 100 03/30/20 17:00 111 19 134/92 (106) 100 03/30/20 16:30 114 18 138/95 (109) 100 03/30/20 16:00 Mechanical Ventilator 03/30/20 16:00 99.0 03/30/20 16:00 115 18 144/92 (109) 100 03/30/20 16:00 100 03/30/20 16:00 109 03/30/20 15:30 115 19 134/86 (102) 100 03/30/20 15:00 114 19 137/88 (104) 100 03/30/20 15:00 114 19 100 03/30/20 14:30 112 19 141/92 (108) 100 03/30/20 14:17 134/90 03/30/20 14:00 109 20 134/90 (105) 100 03/30/20 13:30 110 20 139/85 (103) 100 03/30/20 13:00 18 135/86 Mechanical Ventilator 100 03/30/20 13:00 111 18 135/86 (102) 100 03/30/20 12:30 119 16 127/94 (105) 97 03/30/20 12:15 99.2 124 24 156/94 (114) 97 03/30/20 12:00 128 25 162/102 (122) 96 03/30/20 12:00 Mechanical Ventilator 03/30/20 12:00 25 162/102 Mechanical Ventilator 100 03/30/20 11:45 129 21 163/106 (125) 97 03/30/20 11:45 21 163/106 Mechanical Ventilator 100 03/30/20 11:43 128 22 170/107 (128) 98 03/30/20 11:30 129 14 170/108 (128) 97 03/30/20 11:27 129 03/30/20 11:15 129 17 174/109 (130) 96 03/30/20 11:10 130 23 100 03/30/20 11:00 129 17 180/114 (136) 95 03/30/20 11:00 17 180/114 Mechanical Ventilator 100 03/30/20 10:45 128 17 168/111 (130) 95 03/30/20 10:45 17 168/111 Mechanical Ventilator 100 03/30/20 10:30 18 175/115 Mechanical Ventilator 100 03/30/20 10:30 125 18 175/115 (135) 95 03/30/20 10:15 123 16 164/98 (120) 94 03/30/20 10:15 16 164/98 Mechanical Ventilator 100 03/30/20 10:00 121 18 173/106 (128) 92 03/30/20 10:00 18 173/106 Mechanical Ventilator 100 03/30/20 09:45 120 16 184/110 (134) 90 03/30/20 09:40 120 16 182/104 (130) 90 03/30/20 09:30 120 18 178/107 (130) 88 03/30/20 09:30 100 03/30/20 09:00 113 23 182/100 (127) 82 03/30/20 09:00 23 182/100 Mechanical Ventilator 100 03/30/20 08:00 Mechanical Ventilator 03/30/20 08:00 99.1 81 18 102/69 (80) 88 03/30/20 08:00 100 03/30/20 08:00 18 102/69 Mechanical Ventilator 100 03/30/20 07:36 87 03/30/20 07:10 82 18 100 03/30/20 07:00 85 19 104/68 (80) 91 03/30/20 07:00 15 108/71 Mechanical Ventilator 100 03/30/20 06:00 85 17 97/65 (76) 93 03/30/20 06:00 17 102/69 Mechanical Ventilator 100 03/30/20 05:18 18 98/74 Mechanical Ventilator 100 03/30/20 05:00 88 15 99/72 (81) 93 03/30/20 04:51 17 102/72 Mechanical Ventilator 100 03/30/20 04:00 99.0 94 18 121/77 (92) 93 03/30/20 04:00 Mechanical Ventilator 03/30/20 04:00 17 110/72 Mechanical Ventilator 100 03/30/20 04:00 100 03/30/20 04:00 86 03/30/20 03:14 87 18 100 03/30/20 03:00 85 16 108/83 (91) 95 03/30/20 03:00 18 108/83 Mechanical Ventilator 100 03/30/20 02:00 89 16 100/64 (76) 95 03/30/20 02:00 16 103/64 Mechanical Ventilator 100 03/30/20 01:00 18 104/66 Mechanical Ventilator 100 03/30/20 01:00 94 15 99/62 (74) 95 03/30/20 00:30 16 104/66 Mechanical Ventilator 100 03/30/20 00:15 14 117/74 Mechanical Ventilator 100 03/30/20 00:00 Mechanical Ventilator 03/30/20 00:00 95 03/30/20 00:00 16 132/80 Mechanical Ventilator 100 03/30/20 00:00 100 03/30/20 00:00 98.3 95 16 114/78 (90) 96 03/29/20 23:29 95 18 100 03/29/20 23:00 19 104/70 Mechanical Ventilator 100 03/29/20 23:00 93 18 100/63 (75) 95 03/29/20 22:00 102 03/29/20 22:00 18 107/69 Mechanical Ventilator 100 03/29/20 22:00 99 18 101/67 (78) 94 03/29/20 21:36 98.5 03/29/20 21:07 18 101/67 Mechanical Ventilator 100 03/29/20 21:00 104 21 108/74 (85) 92 03/29/20 21:00 18 106/65 Mechanical Ventilator 100 03/29/20 20:00 Mechanical Ventilator 03/29/20 20:00 100 03/29/20 20:00 99.0 104 25 131/86 (101) 89 03/29/20 20:00 29 128/90 Mechanical Ventilator 100 03/29/20 19:15 21 121/83 Mechanical Ventilator 100 03/29/20 19:14 106 19 100 General Appearance: no apparent distress, on vent, patient on isolation, isolation precautions Extremities: no swelling Intake and Output 03/29/20 03/30/20 19:00 07:00 Intake Total 737.75 ml 983.91 ml Output Total 265 ml 555 ml Balance 472.75 ml 428.91 ml Free Water 210 ml 10 ml IV Total 487.75 ml 883.91 ml Tube Feeding 40 ml 60 ml Blood Product 30 ml Output Urine Total 265 ml 555 ml Laboratory Tests Test 03/29/20 21:32 03/30/20 02:55 03/30/20 05:50 03/30/20 08:03 POC Whole Blood Glucose 108 MG/DL (74-106) H 104 MG/DL (74-106) White Blood Count 12.9 K/UL (4.8-10.8) H Red Blood Count 3.97 M/UL (4.70-6.10) L Hemoglobin 11.1 G/DL (14.2-18.0) L Hematocrit 34.9 % (42.0-52.0) L Mean Corpuscular Volume 88 FL (80-99) Mean Corpuscular Hemoglobin 27.9 PG (27.0-31.0) Mean Corpuscular Hemoglobin Concent 31.7 G/DL (32.0-36.0) L Red Cell Distribution Width 14.4 % (11.6-14.8) Platelet Count 194 K/UL (150-450) Mean Platelet Volume 6.7 FL (6.5-10.1) Neutrophils (%) (Auto) % (45.0-75.0) Lymphocytes (%) (Auto) % (20.0-45.0) Monocytes (%) (Auto) % (1.0-10.0) Eosinophils (%) (Auto) % (0.0-3.0) Basophils (%) (Auto) % (0.0-2.0) Differential Total Cells Counted 100 Neutrophils % (Manual) 85 % (45-75) H Lymphocytes % (Manual) 10 % (20-45) L Monocytes % (Manual) 4 % (1-10) Eosinophils % (Manual) 0 % (0-3) Basophils % (Manual) 1 % (0-2) Band Neutrophils 0 % (0-8) Platelet Estimate Adequate Platelet Morphology Normal Sodium Level 135 MMOL/L (136-145) L Potassium Level 4.3 MMOL/L (3.5-5.1) Chloride Level 97 MMOL/L (98-107) L Carbon Dioxide Level 36 MMOL/L (21-32) H Anion Gap 2 mmol/L (5-15) L Blood Urea Nitrogen 31 mg/dL (7-18) H Creatinine 0.9 MG/DL (0.55-1.30) Estimat Glomerular Filtration Rate > 60 mL/min (>60) Glucose Level 95 MG/DL (74-106) Calcium Level 8.4 MG/DL (8.5-10.1) L Phosphorus Level 2.9 MG/DL (2.5-4.9) Magnesium Level 2.0 MG/DL (1.8-2.4) Total Bilirubin 0.5 MG/DL (0.2-1.0) Aspartate Amino Transf (AST/SGOT) 58 U/L (15-37) H Alanine Aminotransferase (ALT/SGPT) 228 U/L (12-78) H Alkaline Phosphatase 202 U/L (46-116) H Total Protein 5.4 G/DL (6.4-8.2) L Albumin 2.1 G/DL (3.4-5.0) L Globulin 3.3 g/dL Albumin/Globulin Ratio 0.6 (1.0-2.7) L Arterial Blood pH 7.415 (7.350-7.450) Arterial Blood Partial Pressure CO2 53.2 mmHg (35.0-45.0) H Arterial Blood Partial Pressure O2 47.8 mmHg (75.0-100.0) Arterial Blood HCO3 33.3 mmol/L (22.0-26.0) H Arterial Blood Oxygen Saturation 84.2 % (95-100) *L Arterial Blood Base Excess 7.5 (-2-2) H Shemar Test Positive Test 03/30/20 08:36 03/30/20 12:03 POC Whole Blood Glucose 101 MG/DL (74-106) 122 MG/DL (74-106) H Microbiology Date/Time Source Procedure Growth Status 1/27/21 18:57 Sputum Gram Stain - Final Resulted 03/29/20 18:57 Sputum Sputum Culture Pending Resulted Objective pt in covid 19 isoaltion with acute infection Respiratory/Chest: normal breath sounds, no respiratory distress, no accessory muscle use, crackles/rales - less , rhonchi - bilaterally - less Cardiovascular: normal rate, regular rhythm, no gallop/murmur Abdomen: normal bowel sounds, soft, non tender, no organomegaly, non distended Extremities: no cyanosis Manan Awan MD Mar 30, 2020 19:11
--- NOTE | 2020-03-30 19:30 | NUR ---
NURSE HAND-OFF REPORT: Latest Vital Signs: Temperature 99.0 , Pulse 104 , B/P 149 /87 , Respiratory Rate 12 , O2 SAT 100 , Mechanical Ventilator, O2 Flow Rate . Vital Sign Comment: lightly sedated RASS -2 EKG Rhythm: Sinus Tachycardia Rhythm change?: N Latest Hassan Fall Score: 45 Fall Risk: High Risk Safety Measures: Call light Within Reach, Bed Alarm Zone 2, Side Rails Side Rails x2, Bed position Low and Locked. Fall Precautions: Yellow Socks Yellow Gown Door Sign Patient Fall Education Report given to Brittanie Mejía RN.
--- NOTE | 2020-03-30 19:31 | NUR ---
NURSE NOTES: Received report from PRIYANKA Nunn. Upon assessment pt appears to be sleeping. Responsive to verbal/tactile stimuli. -2 RASS score observed. BP stable. EKG shows ST at 104 BPM. Afebrile. OGT Running Glucerna 1.2 @ 50 mL with 80 mL of residual. Will titrate down rate of feeding. Brownlee draining well to gravity. Bed kept in lowest and locked position. Side rails up x3. Call light within reach. Will monitor.
--- NOTE | 2020-03-30 19:35 | NUR ---
NURSE NOTES: WAYNE patent and intact running Fentanyl at 190 mcg; Hypertonic Saline @ 30mL, D5W @ 50mL. Titrate down rate of feeding to 20mL. Pt nods head when asking about pain. Will monitor.
[2020-03-30] MEDS: Miralax 17gm pkt ORAL SCH (20:49)
[2020-03-30] MEDS: Dyna-Hex 2% Top Sol 2oz TOPIC SCH (20:50)
[2020-03-31] VITALS (68 sets, daily range): BP systolic 75–180; BP diastolic 45–106
[2020-03-31] MEDS: Metoclopramide 10mg/2ml Inj IVP SCH ×4 (03:57→20:08)
[2020-03-31 04:58] LABS: ALANINE AMINOTRANSFERASE 192 U/L (12-78); ALBUMIN 2.2 G/DL (3.4-5.0); ALBUMIN/GLOBULIN RATIO 0.6 (1.0-2.7); ALKALINE PHOSPHATASE 237 U/L (46-116); ANION GAP 5 mmol/L (5-15); ASPARTATE AMINO TRANSFERASE 47 U/L (15-37); BILIRUBIN,TOTAL 0.5 MG/DL (0.2-1.0); BLOOD UREA NITROGEN 33 mg/dL (7-18); CALCIUM 8.6 MG/DL (8.5-10.1); CARBON DIOXIDE 34 MMOL/L (21-32); CHLORIDE 102 MMOL/L (98-107); CREATININE 0.7 MG/DL (0.55-1.30); POTASSIUM 4.4 MMOL/L (3.5-5.1); SODIUM 141 MMOL/L (136-145)
[2020-03-31 05:05] LABS: HEMATOCRIT 34.4 % (42.0-52.0); HEMOGLOBIN 11.5 G/DL (14.2-18.0); MEAN CORPUSCULAR VOLUME 90 FL (80-99); PLATELET COUNT 217 K/UL (150-450); RED BLOOD COUNT 3.84 M/UL (4.70-6.10); RED CELL DISTRIBUTION WIDTH 15.2 % (11.6-14.8); WHITE BLOOD COUNT 11.7 K/UL (4.8-10.8)
[2020-03-31 05:11] LABS: PHOSPHORUS 2.5 MG/DL (2.5-4.9)
--- NOTE | 2020-03-31 05:11 | Cardiology Report ---
APPROVED REPORT EKG Measurement Heart [id number] <Conclusion> Normal sinus rhythm Nonspecific ST and T wave abnormality Abnormal ECG
--- NOTE | 2020-03-31 05:12 | Cardiology Report ---
APPROVED REPORT EXAM: Two-dimensional and M-mode echocardiogram with Doppler and color Doppler. INDICATION S.O.B M-Mode DIMENSIONS IVSd1.5 (0.7-1.1cm)Left Atrium (MM)3.7 (1.6-4.0cm) LVDd4.2 (3.5-5.6cm)Aortic Root3.6 (2.0-3.7cm) PWd1.3 (0.7-1.1cm)Aortic Cusp Exc.1.8 (1.5-2.0cm) IVSs1.7 cm LVDs2.9 (2.5-4.0cm) PWs1.9 cm <Conclusion> Technically difficult study due poor acoustical windows. Normal left ventricular chamber size, systolic function and wall motion to extent visualized. Left ventricular ejection fraction estimated to be 60-65%. No evidence of ventricular hypertrophy. Anterior Echo-free space, may be due to pericardial fat or effusion. All other cardiac chamber sizes are within normal limits. Calcification of aortic valve with adequate cusp excursion. Thickened mitral valve leaflets with normal excursion. Mitral annulus and aortic root calcification. Pulmonic valve not well visualized. Normal tricuspid valve structure. IVC measured at size 2.1 cm with slight physiologic collapse. A color flow and spectral Doppler study was performed and revealed: No aortic regurgitation. Trace mitral regurgitation. Mitral diastolic velocities suggest reduced left ventricular relaxation c/w mild LV diastolic dysfunction (Grade I ). Trace tricuspid regurgitation. Tricuspid systolic velocities suggests peak right ventricular systolic pressure of 15 mmHg.
[2020-03-31] MEDS: Solu-MEDROL 40mg Inj IVP SCH ×3 (05:59→21:43)
[2020-03-31] MEDS: NovoLOG Insulin Flexpen SUBQ SCH ×5 (06:00→23:49)
[2020-03-31] MEDS ORDERED: Vancomycin 1750mg/D5W 550ml IVPB SCH ×2 (06:00)
--- NOTE | 2020-03-31 07:05 | NUR ---
RESPIRATORY NOTE: PT received on AC/VC: 18, 750 100%, +8. Alarms are on and audible. Vent circuit is secure and out of the way. Airway is secure and patent. No s/s of respiratory distress noted at this time. Bilateral soft restraints securely in place. Will continue to closely monitor.
--- NOTE | 2020-03-31 07:40 | NUR ---
NURSE HAND-OFF REPORT: Latest Vital Signs: Temperature 98.7 , Pulse 133 , B/P 124 /77 , Respiratory Rate 30 , O2 SAT 93 , Endotracheal Tube, O2 Flow Rate . Vital Sign Comment: TACCY AND HYPERTENSIVE - Hydralazine and Tylenol given. EKG Rhythm: Sinus Tachycardia Rhythm change?: N Notified?: Courtney Paige MD Response: Message left await call Latest Hassan Fall Score: 45 Fall Risk: High Risk Safety Measures: Call light Within Reach, Bed Alarm Zone 1, Side Rails Side Rails x3, Bed position Low and Locked. Fall Precautions: Yellow Socks Yellow Gown Door Sign Patient Fall Education Report given to PRIYANKA Teague.
--- NOTE | 2020-03-31 07:44 | NUR ---
RD ASSESSMENT & RECOMMENDATIONS SEE CARE ACTIVITY FOR COMPLETE ASSESSMENT DAILY ESTIMATED NEEDS: Needs based on Critical care, wound 81kg abw 22-28 kcals/kg 3224-3367 total kcals 1.25-1.5 g protein/kg 101-122 g total protein 25-30 mL/kg 1353-4795 total fluid mLs NUTRITION DIAGNOSIS: * Inadequate oral intake R/T clinical and respiratory status as evidenced by COVID-19 ++, on continuous BIPAP, prolonged meal refusals, pt is now on TPN, pt is now orally intubated (03/28), OGT ordered. * Decreased sodium and fat needs r/t HTN and obesity as evidenced by pt w/ cardiac history, elev BP (159/98-> now improved, on BP meds and diuretics), BMI >30, obese per guidelines. (INACTIVE) CURRENT TF: NOW ORDERED-> Glucerna 1.5 goal of 50 ENTERAL NUTRITION RECOMMENDATIONS: Glucerna 1.5 @ 50ml/hr x 24 hrs to provide 1200ml, 1800kcal, 99g prot, 926ml free water * W/ GI access, initiate Glucerna 1.5 @ 10ml/hr x 6hrs * Advance 10ml q 4-6 hrs as tolerated to goal. * HOB over 30 degrees/ water flush per MD * Add Prosource 1pkt QD (additional 11g prot) once TF well tolerated @ goal to better meet est prot needs. ------ With Propofol running @ current rate of 3.266ml/hr (86kcal), TF @ goal + Propofol does not exceed needs. TPN Comment: Now off TPN, on OGT feeds. ADDITIONAL RECOMMENDATIONS: 1) Maintain calibrated bedscale wts 2) Obtain HgA1C for eval 3) W/ OGT insertion, rec OGT feeds and wean off and DC TPN -> See above TF rec 4) Off tpn, LFT's trending down. 5) Monitor lytes, replete as needed 6) Bowel regimen as able
--- NOTE | 2020-03-31 08:02 | NUR ---
NURSE NOTES: Left message for Dr Mata regarding pt increased WOB, increased resp rate, and HR >120 beats per minute sustained, unrelieved by max amount of fentanyl sedation. Awaiting call back.
[2020-03-31] MEDS: Vitamin D 1000 units Tab ORAL SCH (08:47)
[2020-03-31] MEDS: Lactulose 20gm/30ml UDC ORAL SCH ×3 (08:47→17:28)
--- NOTE | 2020-03-31 08:50 | NUR ---
RESPIRATORY NOTE: ABG DRAWN AT THIS TIME. RESULTS REPORTED TO ISADORA MATHEW.
--- NOTE | 2020-03-31 08:57 | NUR ---
RADIOLOGY DEPT., CHEST X-RAY DONE.-P.DYE
[2020-03-31] MEDS ORDERED: Vancomycin 1 GM in NS 275 ML IVPB SCH (09:00)
[2020-03-31] MEDS ORDERED: Levemir Flexpen SUBQ SCH (09:00)
[2020-03-31] MEDS: fentaNYL 2500mcg/NS 250ml 250 ML IV SCH ×2 (09:48→17:42)
[2020-03-31] MEDS: Enoxaparin 40mg Inj SUBQ SCH (09:49)
--- NOTE | 2020-03-31 10:05 | NUR ---
NURSE NOTES: Dr Mata rounded on the pt. Update given. Notified him that pt has increased WOB with high RR and max dose of fentanyl is not working. Notified him that pt not following command and gazing up to the right. Pupils equal and reactive to light but sluggish. Received order for versed drip. Order read back, verified, and placed.
--- NOTE | 2020-03-31 10:13 | Pulmonology Progress Note ---
Subjective ROS Limited/Unobtainable: Yes Interval Events: Intubated 03/28/20 Constitutional: Reports: fever, other - sedated, on vent, s/p bronchoscopy, no pressors but bp low HEENT: Repors: no symptoms Respiratory: Reports: dry cough, shortness of breath Cardiovascular: Reports: no symptoms Gastrointestinal/Abdominal: Denies: nausea, vomiting, diarrhea Psychiatric: Reports: other - NA Skin: Denies: rash Musculoskeletal: Denies: pain Allergies: Coded Allergies: No Known Allergies (Unverified , 02/05/20) Objective Last 24 Hour Vital Signs Date Time Temp Pulse Resp B/P (MAP) Pulse Ox O2 Delivery O2 Flow Rate FiO2 03/31/20 09:48 23 119/77 Mechanical Ventilator 100 03/31/20 08:24 102.2 03/31/20 07:00 29 141/78 Endotracheal Tube 80 03/31/20 07:00 133 30 124/77 (93) 93 03/31/20 06:13 177/118 03/31/20 06:00 141 22 180/106 (130) 95 03/31/20 06:00 28 180/106 Endotracheal Tube 80 03/31/20 05:00 24 135/83 Endotracheal Tube 80 03/31/20 05:00 123 22 132/83 (99) 97 03/31/20 04:00 80 03/31/20 04:00 123 03/31/20 04:00 23 138/85 Endotracheal Tube 80 03/31/20 04:00 98.7 127 17 138/85 (102) 98 03/31/20 04:00 Mechanical Ventilator 03/31/20 03:28 122 19 80 03/31/20 03:00 119 18 133/85 (101) 99 03/31/20 03:00 20 142/95 Endotracheal Tube 80 03/31/20 02:00 124 22 146/94 (111) 99 03/31/20 02:00 19 141/88 Endotracheal Tube 80 03/31/20 01:00 20 140/79 Endotracheal Tube 90 03/31/20 01:00 24 144/89 Endotracheal Tube 90 03/31/20 01:00 113 18 137/83 (101) 98 03/31/20 00:00 113 03/31/20 00:00 98.9 113 21 133/86 (102) 97 03/31/20 00:00 Mechanical Ventilator 03/31/20 00:00 19 150/94 Mechanical Ventilator 90 03/31/20 00:00 100 03/30/20 23:28 117 23 90 03/30/20 23:00 114 21 152/93 (112) 97 03/30/20 23:00 20 147/99 Endotracheal Tube 90 03/30/20 22:00 22 161/92 Endotracheal Tube 90 03/30/20 22:00 111 18 141/96 (111) 98 03/30/20 21:00 113 22 133/93 (106) 98 03/30/20 21:00 21 156/96 Endotracheal Tube 90 03/30/20 20:51 20 145/101 Endotracheal Tube 90 03/30/20 20:00 115 03/30/20 20:00 110 19 137/89 (105) 100 03/30/20 20:00 100 03/30/20 20:00 Mechanical Ventilator 03/30/20 19:46 112 18 90 03/30/20 19:00 104 12 149/87 (107) 100 03/30/20 19:00 12 149/87 Mechanical Ventilator 100 03/30/20 18:00 19 124/83 Mechanical Ventilator 100 03/30/20 18:00 106 19 124/83 (97) 100 03/30/20 17:00 111 19 134/92 (106) 100 03/30/20 17:00 19 134/83 Mechanical Ventilator 100 03/30/20 16:30 114 18 138/95 (109) 100 03/30/20 16:00 Mechanical Ventilator 03/30/20 16:00 99.0 03/30/20 16:00 18 144/92 Mechanical Ventilator 100 03/30/20 16:00 115 18 144/92 (109) 100 03/30/20 16:00 100 03/30/20 16:00 109 03/30/20 15:30 115 19 134/86 (102) 100 03/30/20 15:00 19 137/88 Mechanical Ventilator 100 03/30/20 15:00 114 19 137/88 (104) 100 03/30/20 15:00 114 19 100 03/30/20 14:30 112 19 141/92 (108) 100 03/30/20 14:17 134/90 03/30/20 14:00 20 134/90 Mechanical Ventilator 100 03/30/20 14:00 109 20 134/90 (105) 100 03/30/20 13:30 110 20 139/85 (103) 100 03/30/20 13:00 18 135/86 Mechanical Ventilator 100 03/30/20 13:00 111 18 135/86 (102) 100 03/30/20 12:30 119 16 127/94 (105) 97 03/30/20 12:15 99.2 124 24 156/94 (114) 97 03/30/20 12:00 128 25 162/102 (122) 96 03/30/20 12:00 Mechanical Ventilator 03/30/20 12:00 25 162/102 Mechanical Ventilator 100 03/30/20 11:45 129 21 163/106 (125) 97 03/30/20 11:45 21 163/106 Mechanical Ventilator 100 03/30/20 11:43 128 22 170/107 (128) 98 03/30/20 11:30 129 14 170/108 (128) 97 03/30/20 11:27 129 03/30/20 11:15 129 17 174/109 (130) 96 03/30/20 11:10 130 23 100 03/30/20 11:00 129 17 180/114 (136) 95 03/30/20 11:00 17 180/114 Mechanical Ventilator 100 03/30/20 10:45 128 17 168/111 (130) 95 03/30/20 10:45 17 168/111 Mechanical Ventilator 100 03/30/20 10:30 18 175/115 Mechanical Ventilator 100 03/30/20 10:30 125 18 175/115 (135) 95 03/30/20 10:15 123 16 164/98 (120) 94 03/30/20 10:15 16 164/98 Mechanical Ventilator 100 Intake and Output 03/30/20 03/31/20 19:00 07:00 Intake Total 1582.75 ml 1775 ml Output Total 755 ml 800 ml Balance 827.75 ml 975 ml Free Water 120 ml IV Total 1162.75 ml 1275 ml Tube Feeding 300 ml 380 ml Other 120 ml Output Urine Total 755 ml 800 ml General Appearance: WD/WN, no acute distress HEENT: normocephalic, atraumatic Respiratory: chest wall non-tender Cardiovascular: normal rate, regular rhythm Abdomen: normal bowel sounds, soft, non tender, other - obese Microbiology Date/Time Source Procedure Growth Status 03/29/20 18:57 Indwelling Cath Urine Culture - Preliminary NO GROWTH AFTER 24 HOURS Resulted 03/29/20 18:57 Sputum Gram Stain - Final Resulted 03/29/20 18:57 Sputum Sputum Culture - Preliminary NORMAL UPPER RESPIRATORY WILIAM AT 24 ... Resulted 03/29/20 15:10 Blood Blood Culture - Preliminary NO GROWTH AFTER 24 HOURS Resulted 03/29/20 14:50 Blood Blood Culture - Preliminary Resulted Laboratory Tests 03/30/20 12:03: POC Whole Blood Glucose 122H 03/31/20 00:30: POC Whole Blood Glucose 125H 03/31/20 03:00: White Blood Count 11.7H, Red Blood Count 3.84L, Hemoglobin 11.5L, Hematocrit 34.4L, Mean Corpuscular Volume 90, Mean Corpuscular Hemoglobin 29.9, Mean Corpuscular Hemoglobin Concent 33.4, Red Cell Distribution Width 15.2H, Platelet Count 217, Mean Platelet Volume 6.0L, Neutrophils (%) (Auto) , Lymphocytes (%) (Auto) , Monocytes (%) (Auto) , Eosinophils (%) (Auto) , Basophils (%) (Auto) , Differential Total Cells Counted 100, Neutrophils % (Manual) 89H, Lymphocytes % (Manual) 7L, Monocytes % (Manual) 4, Eosinophils % (Manual) 0, Basophils % (Manual) 0, Band Neutrophils 0, Platelet Estimate Adequate, Platelet Morphology Normal, Hypochromasia 1+, Anisocytosis 1+, Sodium Level 141, Potassium Level 4.4, Chloride Level 102, Carbon Dioxide Level 34H, Anion Gap 5, Blood Urea Nitrogen 33H, Creatinine 0.7, Estimat Glomerular Filtration Rate > 60, Glucose Level 124H, Calcium Level 8.6, Phosphorus Level 2.5, Magnesium Level 2.3, Total Bilirubin 0.5, Aspartate Amino Transf (AST/SGOT) 47H, Alanine Aminotransferase (ALT/SGPT) 192H, Alkaline Phosphatase 237H, C-Reactive Protein, Quantitative < 0.4, Pro-B-Type Natriuretic Peptide 759H, Total Protein 5.8L, Albumin 2.2L, Globulin 3.6, Albumin/Globulin Ratio 0.6L, Vancomycin Level Trough 14.7H 03/31/20 08:50: Arterial Blood pH 7.378, Arterial Blood Partial Pressure CO2 63.1*H, Arterial Blood Partial Pressure O2 90.0, Arterial Blood HCO3 36.3H, Arterial Blood Oxygen Saturation 96.4, Arterial Blood Base Excess 9.0H, Shemar Test Positive Current Medications Medications (Trade) Dose Ordered Sig/Dennis Route PRN Reason Start Time Stop Time Status Last Admin Dose Admin Acetaminophen (Tylenol) 650 mg Q4H PRN ORAL Mild Pain (Pain Scale 1-3) 03/09/20 12:00 04/08/20 11:59 03/31/20 07:54 Bisacodyl (Dulcolax) 10 mg HSPRN PRN RECTAL Constipation 02/05/20 13:15 05/05/20 13:14 Bisacodyl (Dulcolax) 10 mg Q12H PRN RECTAL Constipation 03/18/20 16:45 06/16/20 16:44 Chlorhexidine Gluconate (Marlen-Hex 2%) 1 applic DAILY@2000 TOPIC 03/30/20 20:00 06/28/20 19:59 03/30/20 20:50 Clonidine HCl (Catapres TTS-3) 1 patch QWEEK TDERMAL 03/30/20 15:00 06/28/20 14:59 03/30/20 14:17 Dextrose (Dextrose 50%) 25 ml Q30M PRN IV Hypoglycemia 03/29/20 20:45 06/27/20 20:44 Dextrose (Dextrose 50%) 50 ml Q30M PRN IV Hypoglycemia 03/29/20 20:45 06/27/20 20:44 Dextrose/Sodium Chloride 1,000 ml @ 50 mls/hr Q20H IV 03/29/20 20:45 04/28/20 20:44 03/30/20 17:57 Enoxaparin Sodium (Lovenox) 40 mg DAILY SUBQ 03/13/20 12:00 06/11/20 11:59 03/31/20 09:49 Fentanyl Citrate 250 ml @ 1 mls/hr Q24H IV 03/30/20 19:50 04/04/20 19:30 03/31/20 09:48 Furosemide (Lasix) 20 mg EVERY 8 HOURS IV 03/30/20 14:00 04/18/20 13:59 03/31/20 05:59 Hydralazine HCl (Apresoline) 10 mg Q4H PRN IV For High Blood Pressure 03/30/20 12:15 06/28/20 12:14 03/31/20 06:13 Insulin Aspart (NovoLOG) Q6HR SUBQ 03/30/20 00:00 06/28/20 00:00 Insulin Detemir (Levemir) 10 units Q12HR SUBQ 03/31/20 09:00 06/10/20 20:59 03/31/20 09:45 Labetalol HCl (Normodyne) 10 mg Q4H PRN IV sbp greater tahtn 160 03/28/20 17:30 04/27/20 17:29 Lactulose (Cephulac) 20 gm THREE TIMES A DAY ORAL 03/08/20 13:00 04/07/20 12:59 03/31/20 08:47 Meropenem 1 gm/ Sodium Chloride 100 ml @ 200 mls/hr Q8HR IVPB 03/29/20 15:00 04/03/20 14:59 03/31/20 05:59 Methylprednisolone Sodium Succinate (Solu-MEDROL) 40 mg EVERY 8 HOURS IVP 03/22/20 14:00 06/20/20 13:59 03/31/20 05:59 Metoclopramide HCl (Reglan) 10 mg Q6H IVP 03/30/20 15:00 04/29/20 14:59 03/31/20 08:47 Micafungin Sodium 100 mg/Sodium Chloride 100 ml @ 100 mls/hr Q24H IVPB 03/29/20 15:00 04/05/20 14:59 03/30/20 14:17 Midazolam HCl 100 ml @ 0 mls/hr Q24H PRN IV Agitation 03/31/20 10:03 04/02/20 10:02 Norepinephrine Bitartrate 250 ml @ 0 mls/hr Q24H PRN IV For hypotension 03/29/20 11:31 04/01/20 11:30 Polyethylene Glycol (Miralax) 17 gm BEDTIME ORAL 03/08/20 21:00 04/07/20 20:59 03/30/20 20:49 Trimethoprim/ Sulfamethoxazole (Bactrim-DS) 1 tab Q24H ORAL 03/29/20 17:00 04/05/20 16:59 03/30/20 17:56 Vancomycin HCl ([facility] pharmacy to dose) 1 ea DAILY PRN MISC Per rx protocol 03/29/20 14:30 04/28/20 14:29 Vancomycin HCl 1 gm/Sodium Chloride 275 ml @ 183.708 mls/hr Q8H IVPB 03/31/20 09:00 04/05/20 08:59 03/31/20 08:48 Vitamin D (Vitamin D) 5,000 unit DAILY ORAL 03/15/20 09:00 04/14/20 08:59 03/31/20 08:47 Assessment/Plan Assessment/Plan Assessment/Plan 1.COVID-19 pneumonia. - Completed specific therapies - On solumedrol 2. DVT ppx - on lovenox 3. Hypertension - no longer on meds - May need pressors 4. Leukocytosis; - ID following - On abx - Febrile to 102 5. Elevated LFT - positive Hep C; treated in the past with IF 6. Respiratory failure -Intubated 03/28/20 -Family aware - Prognosis grave - Increased Vt to 750; rate to 18 -On Fentanyl 7. Discussed with cardiology -No evidence for cardiac dysfunction or PE -tachycardic; will increase sedation 8. AMS -Has had a change in mental status No longer responsive Seems to have conjugate gaze to right -Will consult neurology John Mata MD Mar 31, 2020 10:13
[2020-03-31] MEDS: Versed 50mg/NS 100ml 100 ML IV PRN ×2 (10:26→19:02)
--- NOTE | 2020-03-31 10:30 | NUR ---
NURSE NOTES: Received call from Dr Chowdhury radiologist. He reported that pt ET tube and OGT need to be advanced. ET tube recommended to be advanced 5cm. OGT recommend to be advanced 5-10cm.
--- NOTE | 2020-03-31 10:40 | NUR ---
NURSE NOTES: ET tube advanced to 26cm at the lip. OGT advanced to 75cm at the lip. STAT KUB and chest x-ray ordered. Awaiting result.
--- NOTE | 2020-03-31 10:48 | Diagnostic Imaging Report ---
Indication: Dyspnea Technique: One view of the chest Comparison: 03/30/2020 Findings: Endotracheal tube is withdrawn, tip now projected at the expected level of thoracic inlet just below the cords. The orogastric tube also appears to have withdrawn, with the proximal port now at the expected level of the gastroesophageal junction. Bilateral infiltrates are unchanged allowing for differences in degree of inspiration Impression: I position of endotracheal tube. Advancement recommended. High position of orogastric tube. Advancement recommended. These critical value findings were discussed with patient's nurse at the time of interpretation Other stable findings as described
--- NOTE | 2020-03-31 10:58 | NUR ---
RESPIRATORY NOTE: ETT advanced to 26 cm per MD. No complications noted, will continue to monitor.
--- NOTE | 2020-03-31 11:15 | NUR ---
NURSE NOTES: Blood pressure dropped due to high sedation needed to suppress pt increased work of breathing. Levophed started. Will continue to monitor.
--- NOTE | 2020-03-31 11:23 | General Progress Note ---
Subjective ROS Limited/Unobtainable: No Allergies: Coded Allergies: No Known Allergies (Unverified , 02/05/20) Objective Last 24 Hour Vital Signs Date Time Temp Pulse Resp B/P (MAP) Pulse Ox O2 Delivery O2 Flow Rate FiO2 03/31/20 10:26 27 Mechanical Ventilator 100 03/31/20 09:48 23 119/77 Mechanical Ventilator 100 03/31/20 08:24 102.2 03/31/20 07:00 29 141/78 Endotracheal Tube 80 03/31/20 07:00 133 30 124/77 (93) 93 03/31/20 06:13 177/118 03/31/20 06:00 141 22 180/106 (130) 95 03/31/20 06:00 28 180/106 Endotracheal Tube 80 03/31/20 05:00 24 135/83 Endotracheal Tube 80 03/31/20 05:00 123 22 132/83 (99) 97 03/31/20 04:00 80 03/31/20 04:00 123 03/31/20 04:00 23 138/85 Endotracheal Tube 80 03/31/20 04:00 98.7 127 17 138/85 (102) 98 03/31/20 04:00 Mechanical Ventilator 03/31/20 03:28 122 19 80 03/31/20 03:00 119 18 133/85 (101) 99 03/31/20 03:00 20 142/95 Endotracheal Tube 80 03/31/20 02:00 124 22 146/94 (111) 99 03/31/20 02:00 19 141/88 Endotracheal Tube 80 03/31/20 01:00 20 140/79 Endotracheal Tube 90 03/31/20 01:00 24 144/89 Endotracheal Tube 90 03/31/20 01:00 113 18 137/83 (101) 98 03/31/20 00:00 113 03/31/20 00:00 98.9 113 21 133/86 (102) 97 03/31/20 00:00 Mechanical Ventilator 03/31/20 00:00 19 150/94 Mechanical Ventilator 90 03/31/20 00:00 100 03/30/20 23:28 117 23 90 03/30/20 23:00 114 21 152/93 (112) 97 03/30/20 23:00 20 147/99 Endotracheal Tube 90 03/30/20 22:00 22 161/92 Endotracheal Tube 90 03/30/20 22:00 111 18 141/96 (111) 98 03/30/20 21:00 113 22 133/93 (106) 98 03/30/20 21:00 21 156/96 Endotracheal Tube 90 03/30/20 20:51 20 145/101 Endotracheal Tube 90 03/30/20 20:00 115 03/30/20 20:00 110 19 137/89 (105) 100 03/30/20 20:00 100 03/30/20 20:00 Mechanical Ventilator 03/30/20 19:46 112 18 90 03/30/20 19:00 104 12 149/87 (107) 100 03/30/20 19:00 12 149/87 Mechanical Ventilator 100 03/30/20 18:00 19 124/83 Mechanical Ventilator 100 03/30/20 18:00 106 19 124/83 (97) 100 03/30/20 17:00 111 19 134/92 (106) 100 03/30/20 17:00 19 134/83 Mechanical Ventilator 100 03/30/20 16:30 114 18 138/95 (109) 100 03/30/20 16:00 Mechanical Ventilator 03/30/20 16:00 99.0 03/30/20 16:00 18 144/92 Mechanical Ventilator 100 03/30/20 16:00 115 18 144/92 (109) 100 03/30/20 16:00 100 03/30/20 16:00 109 03/30/20 15:30 115 19 134/86 (102) 100 03/30/20 15:00 19 137/88 Mechanical Ventilator 100 03/30/20 15:00 114 19 137/88 (104) 100 03/30/20 15:00 114 19 100 03/30/20 14:30 112 19 141/92 (108) 100 03/30/20 14:17 134/90 03/30/20 14:00 20 134/90 Mechanical Ventilator 100 03/30/20 14:00 109 20 134/90 (105) 100 03/30/20 13:30 110 20 139/85 (103) 100 03/30/20 13:00 18 135/86 Mechanical Ventilator 100 03/30/20 13:00 111 18 135/86 (102) 100 03/30/20 12:30 119 16 127/94 (105) 97 03/30/20 12:15 99.2 124 24 156/94 (114) 97 03/30/20 12:00 128 25 162/102 (122) 96 03/30/20 12:00 Mechanical Ventilator 03/30/20 12:00 25 162/102 Mechanical Ventilator 100 03/30/20 11:45 129 21 163/106 (125) 97 03/30/20 11:45 21 163/106 Mechanical Ventilator 100 03/30/20 11:43 128 22 170/107 (128) 98 03/30/20 11:30 129 14 170/108 (128) 97 03/30/20 11:27 129 Intake and Output 03/30/20 03/31/20 19:00 07:00 Intake Total 1582.75 ml 1775 ml Output Total 755 ml 800 ml Balance 827.75 ml 975 ml Free Water 120 ml IV Total 1162.75 ml 1275 ml Tube Feeding 300 ml 380 ml Other 120 ml Output Urine Total 755 ml 800 ml Laboratory Tests 03/30/20 12:03: POC Whole Blood Glucose 122H 03/31/20 00:30: POC Whole Blood Glucose 125H 03/31/20 03:00: White Blood Count 11.7H, Red Blood Count 3.84L, Hemoglobin 11.5L, Hematocrit 34.4L, Mean Corpuscular Volume 90, Mean Corpuscular Hemoglobin 29.9, Mean Corpuscular Hemoglobin Concent 33.4, Red Cell Distribution Width 15.2H, Platelet Count 217, Mean Platelet Volume 6.0L, Neutrophils (%) (Auto) , Lymphocytes (%) (Auto) , Monocytes (%) (Auto) , Eosinophils (%) (Auto) , Basophils (%) (Auto) , Differential Total Cells Counted 100, Neutrophils % (Manual) 89H, Lymphocytes % (Manual) 7L, Monocytes % (Manual) 4, Eosinophils % (Manual) 0, Basophils % (Manual) 0, Band Neutrophils 0, Platelet Estimate Adequate, Platelet Morphology Normal, Hypochromasia 1+, Anisocytosis 1+, Sodium Level 141, Potassium Level 4.4, Chloride Level 102, Carbon Dioxide Level 34H, Anion Gap 5, Blood Urea Nitrogen 33H, Creatinine 0.7, Estimat Glomerular Filtration Rate > 60, Glucose Level 124H, Calcium Level 8.6, Phosphorus Level 2.5, Magnesium Level 2.3, Total Bilirubin 0.5, Aspartate Amino Transf (AST/SGOT) 47H, Alanine Aminotransferase (ALT/SGPT) 192H, Alkaline Phosphatase 237H, C-Reactive Protein, Quantitative < 0.4, Pro-B-Type Natriuretic Peptide 759H, Total Protein 5.8L, Albumin 2.2L, Globulin 3.6, Albumin/Globulin Ratio 0.6L, Vancomycin Level Trough 14.7H 03/31/20 08:50: Arterial Blood pH 7.378, Arterial Blood Partial Pressure CO2 63.1*H, Arterial Blood Partial Pressure O2 90.0, Arterial Blood HCO3 36.3H, Arterial Blood Oxygen Saturation 96.4, Arterial Blood Base Excess 9.0H, Shemar Test Positive Height (Feet): 5 Height (Inches): 10.00 Weight (Pounds): 240 General Appearance: confused, mild distress EENT: normal ENT inspection Neck: supple Cardiovascular: tachycardia Respiratory/Chest: decreased breath sounds Abdomen: non tender, soft, hypoactive bowel sounds Extremities: non-tender Assessment/Plan Status: stable, progressing Assessment/Plan: covid + on BIPAP DM HTN FTT constipation hep c + but neg RNA intubated OGTF increase reglan 10 mg patient is getting worse Da Quintero MD Mar 31, 2020 11:23
--- NOTE | 2020-03-31 11:50 | Diagnostic Imaging Report ---
Indication: Post orogastric tube repositioning Technique: Supine view of the abdomen Comparison: Chest radiograph of earlier the same day Findings: Interim advancement of orogastric tube, tip now projected at the level of the gastric pylorus or possibly in the duodenal bulb. Bowel gas pattern is unremarkable. Impression: Improved and now satisfactory position of orogastric tube
--- NOTE | 2020-03-31 11:53 | Diagnostic Imaging Report ---
Indication: Post endotracheal tube repositioning Technique: One view of the chest Comparison: 3 hours earlier Findings: Interim advancement of endotracheal tube, tip projecting approximately 5 cm above the sunny. Interim advancement of orogastric tube as well. Bilateral infiltrates are unchanged. Left arm PICC remains Impression: Improved and now satisfactory tube positions as described. ICU nurse Maeve notified at the time of interpretation
[2020-03-31] MEDS: D5NS 1,000 ML IV SCH (11:56)
--- NOTE | 2020-03-31 12:00 | NUR ---
NURSE NOTES: Pt HR improved. WOB improved. Pt eyes closed and appears comfortable. SpO2 100% on FiO2 100%. BP improved with Levophed. Temp remains elevated. Will continue with cooling measures and tylenol as ordered.
--- NOTE | 2020-03-31 12:25 | NUR ---
RADIOLOGY DEPT., CHEST AND ABDOMEN X-RAYS PERFORMED FOR RE-POSITIONING.-P.DYE
--- NOTE | 2020-03-31 12:27 | Nephrology Progress Note ---
Assessment/Plan Problem List: (1) Dehydration (2) Electrolyte imbalance (3) COVID-19 virus infection (4) Pneumonia (5) DMII (diabetes mellitus, type 2) (6) Protein malnutrition Assessment Azotemia, hypernatremia Hypoalbuminemia Staff Otilia bacteremia COVID-19 isolation, pneumonia, bilateral infiltrate Hypertension Diabetes mellitus History of smoking Plan March 31: Full code . Remains intubated on ventilator. Labs reviewed. P atient appears toxic. Discussed with RN. Maintenance IV discontinued. Medication list reviewed. Blood pressure medication stopped due to low blood pressure. Levemir insulin stopped. Continue monitor blood sugar and sliding scale insulin. March 30: Full code. On ventilator. Labs reviewed. Clonidine patch dose increased. Lasix increased. 3% saline 1 time ordered. Continue to monitor electrolytes and renal parameters. March 29: Remains full code. On mechanical ventilation. On tube feeding. W ill DC TPN. Will start on maintenance IV fluid. Continue to monitor renal parameters. March 28: On BiPAP. Full code. On TPN. Labs reviewed. Discussed with pharmacy. Continue as is. Watch serum potassium. March 27: Remains on BiPAP. No chemistry panel done today. Full code. On TPN. Will check lab tomorrow. March 26: Remains on BiPAP. Remains on TPN. Labs reviewed. Electrolytes and chemistries within normal limits. Continue as is. March 25: Remains on TPN. Labs reviewed. Discussed with pharmacy. Change IV Protonix to p.o. Continue 3% saline infusion with Lasix. Patient full code. March 24: Continue to be on TPN. Labs are reviewed. Aim to collect electrolytes. Discussed with pharmacy. Continue current consultants. March 23: Continues to be on TPN. Labs reviewed. Electrolytes and chemistries all acceptable. Discussed with pharmacy. Continue current management. March 22: On TPN. Labs reviewed. Low sodium noted. 3% saline to be continued. Continue to monitor electrolytes. Discussed with pharmacy. March 21: On TPN. Labs reviewed. Continue 3% saline and Lasix for mild hyponatremia. Continue TPN as these. Discussed with pharmacy. March 20: Remains on TPN. Labs reviewed. Serum sodium higher on IV Lasix and 3% saline infusion. Continue TPN as is. Continue to monitor renal parameters and electrolytes. Discussed with Dr. Mata March 19: Remains on TPN. Labs reviewed. Serum sodium 128. Will give 3% saline with IV Lasix. Continue to monitor electrolytes. No change in TPN composition. Discussed with pharmacy. March 18: Remains on TPN. Labs reviewed. Discussed with pharmacist. Will give 3 doses of IV Lasix 20 mg every 8 hours. Continue to monitor serum sodium electrolytes uric acid. White blood cells down. Continue per consultants. March 17: On TPN. Labs reviewed. Discussed with pharmacist. Sodium content increase. Continue to monitor CMP. Patient continues to have leukocytosis. March 16: On TPN. Labs reviewed. Discussed with pharmacist. Appropriate changes made. Continue to monitor electrolytes. March 15: Remains on TPN. Labs reviewed. Discussed with pharmacist. Continue per current management. March 14: Remains on TPN. Labs reviewed, stable. Vitamin D level low, replacement ordered. Continue to monitor electrolytes and renal parameters. March 13: Patient remains on TPN. Discussed with pharmacist. TPN's sodium content adjusted. Labs reviewed. Continue to monitor electrolytes. Blood pressure remains stable. Continue per consultants. March 12: Patient on TPN. Labs reviewed. CPK remains elevated. Abnormal electrolytes and high blood sugar discussed with pharmacist and TPN adjusted. Continue to monitor labs. Oral Protonix added. Ibuprofen discontinued. Can continue to monitor electrolytes and chemistries. Levemir for high blood sugar added. March 11: Patient on TPN. Labs as of 11:15 AM is still pending. Continue per current treatment plan. Will check labs and adjust TPN as needed. Continue per consultants. March 10: Patient on TPN. Labs reviewed. Electrolytes overall stable. CPK is elevated. Will monitor electrolyte, CPK level, lipid panel. Continue per consultants. Discussed with pharmacist. Discussed with RN. Nutritional evaluation noted. Previously: D5W 100 cc an hour Monitor electrolytes renal parameters TPN and Intralipid ordered Will follow Continue per consultants Dietary consult requested Subjective ROS Limited/Unobtainable: Yes Objective Objective Last 24 Hour Vital Signs Date Time Temp Pulse Resp B/P (MAP) Pulse Ox O2 Delivery O2 Flow Rate FiO2 03/31/20 11:30 102.4 130 18 75/60 (65) 95 03/31/20 11:17 142 18 78/46 (57) 94 03/31/20 11:15 85/50 03/31/20 11:15 146 18 85/50 (62) 94 03/31/20 11:00 138 17 98/61 (73) 100 03/31/20 10:45 136 17 107/65 (79) 100 03/31/20 10:30 136 19 104/68 (80) 100 03/31/20 10:26 27 Mechanical Ventilator 100 03/31/20 10:15 137 20 100/71 (81) 99 03/31/20 10:00 138 22 120/69 (86) 99 03/31/20 09:48 23 119/77 Mechanical Ventilator 100 03/31/20 09:45 139 20 119/77 (91) 100 03/31/20 09:30 134 22 125/77 (93) 100 03/31/20 09:15 137 23 128/71 (90) 99 03/31/20 09:00 135 23 125/79 (94) 99 03/31/20 08:45 135 26 117/78 (91) 98 03/31/20 08:30 131 26 119/70 (86) 95 03/31/20 08:24 102.2 03/31/20 08:15 134 30 125/76 (92) 90 03/31/20 08:00 102.2 130 29 123/77 (92) 95 03/31/20 07:45 133 30 132/76 (94) 97 03/31/20 07:30 133 30 141/78 (99) 98 03/31/20 07:15 102.6 132 31 124/77 (93) 93 03/31/20 07:00 29 141/78 Endotracheal Tube 80 03/31/20 07:00 133 30 124/77 (93) 93 03/31/20 06:13 177/118 03/31/20 06:00 141 22 180/106 (130) 95 03/31/20 06:00 28 180/106 Endotracheal Tube 80 03/31/20 05:00 24 135/83 Endotracheal Tube 80 03/31/20 05:00 123 22 132/83 (99) 97 03/31/20 04:00 80 03/31/20 04:00 123 03/31/20 04:00 23 138/85 Endotracheal Tube 80 03/31/20 04:00 98.7 127 17 138/85 (102) 98 03/31/20 04:00 Mechanical Ventilator 03/31/20 03:28 122 19 80 03/31/20 03:00 119 18 133/85 (101) 99 03/31/20 03:00 20 142/95 Endotracheal Tube 80 03/31/20 02:00 124 22 146/94 (111) 99 03/31/20 02:00 19 141/88 Endotracheal Tube 80 03/31/20 01:00 20 140/79 Endotracheal Tube 90 03/31/20 01:00 24 144/89 Endotracheal Tube 90 03/31/20 01:00 113 18 137/83 (101) 98 03/31/20 00:00 113 03/31/20 00:00 98.9 113 21 133/86 (102) 97 03/31/20 00:00 Mechanical Ventilator 03/31/20 00:00 19 150/94 Mechanical Ventilator 90 03/31/20 00:00 100 03/30/20 23:28 117 23 90 03/30/20 23:00 114 21 152/93 (112) 97 03/30/20 23:00 20 147/99 Endotracheal Tube 90 03/30/20 22:00 22 161/92 Endotracheal Tube 90 03/30/20 22:00 111 18 141/96 (111) 98 03/30/20 21:00 113 22 133/93 (106) 98 03/30/20 21:00 21 156/96 Endotracheal Tube 90 03/30/20 20:51 20 145/101 Endotracheal Tube 90 03/30/20 20:00 115 03/30/20 20:00 110 19 137/89 (105) 100 03/30/20 20:00 100 03/30/20 20:00 Mechanical Ventilator 03/30/20 19:46 112 18 90 03/30/20 19:00 104 12 149/87 (107) 100 03/30/20 19:00 12 149/87 Mechanical Ventilator 100 03/30/20 18:00 19 124/83 Mechanical Ventilator 100 03/30/20 18:00 106 19 124/83 (97) 100 03/30/20 17:00 111 19 134/92 (106) 100 03/30/20 17:00 19 134/83 Mechanical Ventilator 100 03/30/20 16:30 114 18 138/95 (109) 100 03/30/20 16:00 Mechanical Ventilator 03/30/20 16:00 99.0 03/30/20 16:00 18 144/92 Mechanical Ventilator 100 03/30/20 16:00 115 18 144/92 (109) 100 03/30/20 16:00 100 03/30/20 16:00 109 03/30/20 15:30 115 19 134/86 (102) 100 03/30/20 15:00 19 137/88 Mechanical Ventilator 100 03/30/20 15:00 114 19 137/88 (104) 100 03/30/20 15:00 114 19 100 03/30/20 14:30 112 19 141/92 (108) 100 03/30/20 14:17 134/90 03/30/20 14:00 20 134/90 Mechanical Ventilator 100 03/30/20 14:00 109 20 134/90 (105) 100 03/30/20 13:30 110 20 139/85 (103) 100 03/30/20 13:00 18 135/86 Mechanical Ventilator 100 03/30/20 13:00 111 18 135/86 (102) 100 03/30/20 12:30 119 16 127/94 (105) 97 Intake and Output 03/30/20 03/31/20 19:00 07:00 Intake Total 1582.75 ml 1775 ml Output Total 755 ml 800 ml Balance 827.75 ml 975 ml Free Water 120 ml IV Total 1162.75 ml 1275 ml Tube Feeding 300 ml 380 ml Other 120 ml Output Urine Total 755 ml 800 ml Current Medications Medications (Trade) Dose Ordered Sig/Dennis Route PRN Reason Start Time Stop Time Status Last Admin Dose Admin Acetaminophen (Tylenol) 650 mg Q4H PRN ORAL Mild Pain (Pain Scale 1-3) 03/09/20 12:00 04/08/20 11:59 03/31/20 12:21 Bisacodyl (Dulcolax) 10 mg HSPRN PRN RECTAL Constipation 02/05/20 13:15 05/05/20 13:14 Bisacodyl (Dulcolax) 10 mg Q12H PRN RECTAL Constipation 03/18/20 16:45 06/16/20 16:44 Chlorhexidine Gluconate (Marlen-Hex 2%) 1 applic DAILY@2000 TOPIC 03/30/20 20:00 06/28/20 19:59 03/30/20 20:50 Clonidine HCl (Catapres TTS-3) 1 patch QWEEK TDERMAL 03/30/20 15:00 06/28/20 14:59 03/30/20 14:17 Dextrose (Dextrose 50%) 25 ml Q30M PRN IV Hypoglycemia 03/29/20 20:45 06/27/20 20:44 Dextrose (Dextrose 50%) 50 ml Q30M PRN IV Hypoglycemia 03/29/20 20:45 06/27/20 20:44 Enoxaparin Sodium (Lovenox) 40 mg DAILY SUBQ 03/13/20 12:00 06/11/20 11:59 03/31/20 09:49 Fentanyl Citrate 250 ml @ 1 mls/hr Q24H IV 03/30/20 19:50 04/04/20 19:30 03/31/20 09:48 Furosemide (Lasix) 20 mg EVERY 8 HOURS IV 03/30/20 14:00 04/18/20 13:59 03/31/20 05:59 Hydralazine HCl (Apresoline) 10 mg Q4H PRN IV For High Blood Pressure 03/30/20 12:15 06/28/20 12:14 03/31/20 06:13 Insulin Aspart (NovoLOG) Q6HR SUBQ 03/30/20 00:00 06/28/20 00:00 Insulin Detemir (Levemir) 10 units Q12HR SUBQ 03/31/20 09:00 06/10/20 20:59 03/31/20 09:45 Labetalol HCl (Normodyne) 10 mg Q4H PRN IV sbp greater tahtn 160 03/28/20 17:30 04/27/20 17:29 Lactulose (Cephulac) 20 gm THREE TIMES A DAY ORAL 03/08/20 13:00 04/07/20 12:59 03/31/20 12:09 Meropenem 1 gm/ Sodium Chloride 100 ml @ 200 mls/hr Q8HR IVPB 03/29/20 15:00 04/03/20 14:59 03/31/20 05:59 Methylprednisolone Sodium Succinate (Solu-MEDROL) 40 mg EVERY 8 HOURS IVP 03/22/20 14:00 06/20/20 13:59 03/31/20 05:59 Metoclopramide HCl (Reglan) 10 mg Q6H IVP 03/30/20 15:00 04/29/20 14:59 03/31/20 08:47 Micafungin Sodium 100 mg/Sodium Chloride 100 ml @ 100 mls/hr Q24H IVPB 03/29/20 15:00 04/05/20 14:59 03/30/20 14:17 Midazolam HCl 100 ml @ 0 mls/hr Q24H PRN IV Agitation 03/31/20 10:03 04/02/20 10:02 03/31/20 10:26 Norepinephrine Bitartrate 250 ml @ 0 mls/hr Q24H PRN IV For hypotension 03/29/20 11:31 04/06/20 11:30 03/31/20 11:15 Polyethylene Glycol (Miralax) 17 gm BEDTIME ORAL 03/08/20 21:00 04/07/20 20:59 03/30/20 20:49 Trimethoprim/ Sulfamethoxazole (Bactrim-DS) 1 tab Q24H ORAL 03/29/20 17:00 04/05/20 16:59 03/30/20 17:56 Vancomycin HCl ([facility] pharmacy to dose) 1 ea DAILY PRN MISC Per rx protocol 03/29/20 14:30 04/28/20 14:29 Vancomycin HCl 1 gm/Sodium Chloride 275 ml @ 183.708 mls/hr Q8H IVPB 03/31/20 09:00 04/05/20 08:59 03/31/20 08:48 Vitamin D (Vitamin D) 5,000 unit DAILY ORAL 03/15/20 09:00 04/14/20 08:59 03/31/20 08:47 Laboratory Tests 03/31/20 00:30: POC Whole Blood Glucose 125H 03/31/20 03:00: White Blood Count 11.7H, Red Blood Count 3.84L, Hemoglobin 11.5L, Hematocrit 34.4L, Mean Corpuscular Volume 90, Mean Corpuscular Hemoglobin 29.9, Mean Corpuscular Hemoglobin Concent 33.4, Red Cell Distribution Width 15.2H, Platelet Count 217, Mean Platelet Volume 6.0L, Neutrophils (%) (Auto) , Lymphocytes (%) (Auto) , Monocytes (%) (Auto) , Eosinophils (%) (Auto) , Basophils (%) (Auto) , Differential Total Cells Counted 100, Neutrophils % (Manual) 89H, Lymphocytes % (Manual) 7L, Monocytes % (Manual) 4, Eosinophils % (Manual) 0, Basophils % (Manual) 0, Band Neutrophils 0, Platelet Estimate Adequate, Platelet Morphology Normal, Hypochromasia 1+, Anisocytosis 1+, Sodium Level 141, Potassium Level 4.4, Chloride Level 102, Carbon Dioxide Level 34H, Anion Gap 5, Blood Urea Nitrogen 33H, Creatinine 0.7, Estimat Glomerular Filtration Rate > 60, Glucose Level 124H, Calcium Level 8.6, Phosphorus Level 2.5, Magnesium Level 2.3, Total Bilirubin 0.5, Aspartate Amino Transf (AST/SGOT) 47H, Alanine Aminotransferase (ALT/SGPT) 192H, Alkaline Phosphatase 237H, C-Reactive Protein, Quantitative < 0.4, Pro-B-Type Natriuretic Peptide 759H, Total Protein 5.8L, Albumin 2.2L, Globulin 3.6, Albumin/Globulin Ratio 0.6L, Vancomycin Level Trough 14.7H 03/31/20 08:50: Arterial Blood pH 7.378, Arterial Blood Partial Pressure CO2 63.1*H, Arterial Blood Partial Pressure O2 90.0, Arterial Blood HCO3 36.3H, Arterial Blood Oxygen Saturation 96.4, Arterial Blood Base Excess 9.0H, Shemar Test Positive Height (Feet): 5 Height (Inches): 10.00 Weight (Pounds): 240 General Appearance: mild distress EENT: other - Intubated on ventilator Cardiovascular: tachycardia Respiratory/Chest: decreased breath sounds Abdomen: distended Rubin Cooper MD Mar 31, 2020 12:27
[2020-03-31] MEDS ORDERED: Tubing IV Secondary IV ONE (12:28)
--- NOTE | 2020-03-31 15:10 | NUR ---
RESPIRATORY NOTE: PATIENT REMAINS STABLE ON CURRENT VENT SETTINGS. NO S/S OF RESPIRATORY DISTRESS NOTED AT THIS TIME.
--- NOTE | 2020-03-31 15:11 | NUR ---
CASE MANAGEMENT:REVIEW 03/31/20 SI: COVID PNA. UTI. RESP FAILURE~INTUBATED 102.4 130 18 75/60 95% ON VENT SUPPORT W/100% FIO2 WBC+11.7 CO2+34 IS: LEVOPHED GTT FENTANYL GTT IV SOLUMEDROL 40MG Q8HRS BACTRIM NG Q8HRS IV VANCOMYCIN Q12 IV MEROPENEM Q8HRS IV MICAFUNGIN Q24 IV LASIX Q12HR IV REGLAN Q6HRS LOVENOX SQ QD : ICU STATUS PLAN: CHEST XRAY ABDOMINAL XRAY
--- NOTE | 2020-03-31 16:00 | NUR ---
NURSE NOTES: VS stable at this time on vasopressor support and sedation. No sign of distress. Temp improved. Will continue to monitor.
--- NOTE | 2020-03-31 16:20 | Infectious Diseases Prog Note ---
Assessment/Plan Assessment/Plan ASSESSMENT AND PLAN: 1. staph aureus bacteremia/mssa, ? source, ? endocarditis, sepsis, leukocytosis, ? CAP, PJP less likely with HIV negative and steroids < 1 month covid-19 +, hypoxia, sob, chest x-ray worse, ? PE, ? HCAP/aspiration pna recurrent fevers - ? fungal, ? OI leukocytosis noted - ? new infection, ? steroids cocci serology negative, legionella negative, beta 1,3 D-glucan wnl, Il-16 - 13.7 elevated LFT's - ? TPN, ? Bactrim - US without gallbladder disease, + steatosis - d/w GI - TPN more likely than bactrim as etiology e.coli uti - s/p treatment with rocephin, s/p treatment for presumptive pneumocystis pna + yeast in blood, fungemia, ? line infection, sepsis, shock, pna, sc-nf - meropenem (-03/29/20), micafungin (03/29/20/), discontinue vancomycin - change line - picc line (02/14/20) - surveillance blood cultures ordered - bactrim for pneumocystis prophylaxis, s/p pneumocystis treatment - s/p tx for mssa bacteremia and ? endocarditis - monitor hypoxia, labs and chest x-ray - guarded condition 2. covid-19 isolation 3. Hypertension history. Blood pressure treatment primary care team. 4. Elevated blood sugars. Blood sugar treatment per primary care team. 5. No known drug allergies. 6. Social history is positive for smoking. 7. Family history is noncontributory. 8. MAR was noted. 9. Case was discussed with RN. 10. Continue treatment per primary consultants. Subjective Constitutional: Reports: fever, other - + vent, + pressors, sedated HEENT: Reports: congestion Respiratory: Reports: shortness of breath Cardiovascular: Reports: other - no pressors Gastrointestinal/Abdominal: Denies: nausea, vomiting Genitourinary: Reports: other - + joseph Neurologic: Reports: other - sedated Psychiatric: Reports: other - NA Skin: Denies: rash Hematologic: Denies: bleeding Musculoskeletal: Reports: other - NA Allergies: Coded Allergies: No Known Allergies (Unverified , 02/05/20) Objective Last 24 Hour Vital Signs Date Time Temp Pulse Resp B/P (MAP) Pulse Ox O2 Delivery O2 Flow Rate FiO2 03/31/20 15:30 103 18 117/69 (85) 100 03/31/20 15:15 99 18 122/76 (91) 100 03/31/20 15:00 99 18 113/69 (84) 100 03/31/20 14:45 101 18 108/71 (83) 100 03/31/20 14:30 103 18 104/65 (78) 100 03/31/20 14:15 102 18 97/67 (77) 100 03/31/20 14:00 104 18 97/63 (74) 100 03/31/20 13:45 104 18 102/66 (78) 100 03/31/20 13:30 105 18 100/63 (75) 100 03/31/20 13:15 108 18 101/68 (79) 100 03/31/20 13:00 111 18 100/63 (75) 100 03/31/20 12:51 98.5 03/31/20 12:45 110 18 97/63 (74) 100 03/31/20 12:30 112 18 93/65 (74) 100 03/31/20 12:15 115 18 96/56 (69) 100 03/31/20 12:00 Mechanical Ventilator 03/31/20 12:00 100 03/31/20 12:00 123 03/31/20 12:00 117 18 101/58 (72) 100 03/31/20 11:45 122 18 101/56 (71) 99 03/31/20 11:30 102.4 130 18 75/60 (65) 95 03/31/20 11:17 142 18 78/46 (57) 94 03/31/20 11:15 85/50 03/31/20 11:15 146 18 85/50 (62) 94 03/31/20 11:00 138 17 98/61 (73) 100 03/31/20 10:58 137 18 100 03/31/20 10:45 136 17 107/65 (79) 100 03/31/20 10:30 136 19 104/68 (80) 100 03/31/20 10:26 27 Mechanical Ventilator 100 03/31/20 10:15 137 20 100/71 (81) 99 03/31/20 10:00 138 22 120/69 (86) 99 03/31/20 09:48 23 119/77 Mechanical Ventilator 100 03/31/20 09:45 139 20 119/77 (91) 100 03/31/20 09:30 134 22 125/77 (93) 100 03/31/20 09:15 137 23 128/71 (90) 99 03/31/20 09:00 135 23 125/79 (94) 99 03/31/20 08:45 135 26 117/78 (91) 98 03/31/20 08:30 131 26 119/70 (86) 95 03/31/20 08:24 102.2 03/31/20 08:15 134 30 125/76 (92) 90 03/31/20 08:00 Mechanical Ventilator 03/31/20 08:00 100 03/31/20 08:00 133 03/31/20 08:00 102.2 130 29 123/77 (92) 95 03/31/20 07:45 133 30 132/76 (94) 97 03/31/20 07:30 133 30 141/78 (99) 98 03/31/20 07:15 102.6 132 31 124/77 (93) 93 03/31/20 07:05 132 30 100 03/31/20 07:00 29 141/78 Endotracheal Tube 80 03/31/20 07:00 133 30 124/77 (93) 93 03/31/20 06:13 177/118 03/31/20 06:00 141 22 180/106 (130) 95 03/31/20 06:00 28 180/106 Endotracheal Tube 80 03/31/20 05:00 24 135/83 Endotracheal Tube 80 03/31/20 05:00 123 22 132/83 (99) 97 03/31/20 04:00 80 03/31/20 04:00 123 03/31/20 04:00 23 138/85 Endotracheal Tube 80 03/31/20 04:00 98.7 127 17 138/85 (102) 98 03/31/20 04:00 Mechanical Ventilator 03/31/20 03:28 122 19 80 03/31/20 03:00 119 18 133/85 (101) 99 03/31/20 03:00 20 142/95 Endotracheal Tube 80 03/31/20 02:00 124 22 146/94 (111) 99 03/31/20 02:00 19 141/88 Endotracheal Tube 80 03/31/20 01:00 20 140/79 Endotracheal Tube 90 03/31/20 01:00 24 144/89 Endotracheal Tube 90 03/31/20 01:00 113 18 137/83 (101) 98 03/31/20 00:00 113 03/31/20 00:00 98.9 113 21 133/86 (102) 97 03/31/20 00:00 Mechanical Ventilator 03/31/20 00:00 19 150/94 Mechanical Ventilator 90 03/31/20 00:00 100 03/30/20 23:28 117 23 90 03/30/20 23:00 114 21 152/93 (112) 97 03/30/20 23:00 20 147/99 Endotracheal Tube 90 03/30/20 22:00 22 161/92 Endotracheal Tube 90 03/30/20 22:00 111 18 141/96 (111) 98 03/30/20 21:00 113 22 133/93 (106) 98 03/30/20 21:00 21 156/96 Endotracheal Tube 90 03/30/20 20:51 20 145/101 Endotracheal Tube 90 03/30/20 20:00 115 03/30/20 20:00 110 19 137/89 (105) 100 03/30/20 20:00 100 03/30/20 20:00 Mechanical Ventilator 03/30/20 19:46 112 18 90 03/30/20 19:00 104 12 149/87 (107) 100 03/30/20 19:00 12 149/87 Mechanical Ventilator 100 03/30/20 18:00 19 124/83 Mechanical Ventilator 100 03/30/20 18:00 106 19 124/83 (97) 100 03/30/20 17:00 111 19 134/92 (106) 100 03/30/20 17:00 19 134/83 Mechanical Ventilator 100 03/30/20 16:30 114 18 138/95 (109) 100 Height (Feet): 5 Height (Inches): 10.00 Weight (Pounds): 240 General Appearance: other - on vent an pressors HEENT: normocephalic, atraumatic, other - oral - intubated Respiratory/Chest: crackles/rales, rhonchi - bilaterally Cardiovascular: normal rate, regular rhythm, no gallop/murmur Abdomen: no organomegaly Genitourinary: other - + joseph Extremities: no cyanosis Skin: no rash Neurologic/Psychiatric: other - sedated Lymphatic: no neck adenopathy Musculoskeletal: no effusion CT chest: IMPRESSION: There are mild subpleural ground-glass and consolidating infiltrates in the dependent portions of both lower lobes and to lesser degree the upper lobes consistent with bilateral pneumonia. The infiltrates are typical for Covid 19. No evidence of pulmonary embolus. CT abdomen and pelvis: IMPRESSION: 1. Scattered hepatic hypodense lesions, too small to characterize on this examination without intravenous contrast. 2. Colonic diverticulosis without evidence of acute diverticulitis. 3. Scattered enlarged mesenteric lymph nodes, presumably reactive. teral pneumonia. The infiltrates are typical for Covid 19. No evidence of pulmonary embolus. Chest x-ray - 12/19/19 - Indication: Shortness of breath Technique: One view of the chest Comparison: 02/17/2020 Findings: Interim worsening of bilateral infiltrates, particularly on the right. The heart is borderline enlarged. The pleural spaces are clear. Left arm PICC is again demonstrated Impression: Worsening bilateral infiltrates over one day, likely pneumonia CT chest - 02/19/20 - IMPRESSION: Increased extensive patchy ground-glass opacities and densities throughout the lungs, suggestive of Covid 19 infection. Chest x-ray 02/23/20 - Procedure: XRAY Chest 1v As Indication: Reason For Exam: INFECT Technique: One view of the chest Comparison: 02/20/2020 Findings: Allowing for differences in exposure technique, bilateral mid and lower lung infiltrates are probably unchanged. The heart size is normal. The pleural spaces are clear. Impression: Unchanged, over 4 days, findings as above. Chest x-ray - 02/25/20 - FINDINGS: Lungs: Interval slightly worsening bilateral airspace disease. Pleural space: Unremarkable. No pneumothorax. Heart: Unremarkable. No cardiomegaly. Mediastinum: Unremarkable. Bones/joints: Unremarkable. IMPRESSION: Interval slightly worsening bilateral airspace disease. Chest x-ray - 03/02/20 - Procedure: XRAY Chest 1v Indication: Shortness of breath Technique: One view of the chest Comparison: 02/25/2020 Findings: Bilateral interstitial and airspace infiltrates are unchanged. The heart size is normal. Left arm PICC is again demonstrated Impression: Unchanged, over one day, findings as above. Chest x-ray - 03/06/20 - Procedure: XRAY Chest 1v Indication: Shortness of breath Technique: One view of the chest Comparison: 03/02/2020 Findings: Bilateral infiltrates are unchanged. Normal heart size. Pleural spaces are clear Chest x-ray - 03/12/10 - Impression: COMPARISON: Chest radiograph March 06, 2020. FINDINGS/IMPRESSION: Improving basilar infiltrates. Follow chest radiograph recommended. The upper lung finley are clear. No pneumothorax. Stable cardiomegaly. Stable left upper extremity PICC line. anged, over 4 days, findings as above. Chest x-ray - 03/17/20 - Procedure: XRAY Chest 1v Indication: Shortness of breath Technique: One view of the chest Comparison: 03/12/2020 Findings: Left arm PICC is again demonstrated. Infiltrates are unchanged. The heart size is upper limits of normal. Impression: Unchanged, over 5 days, findings as above. Abdominal US - IMPRESSION: 1. Gallbladder is normal. 2. Hepatic steatosis. 3. 1.7 cm cyst right kidney. Impression. Chest x-ray - Procedure: XRAY Chest 1v Indication: Shortness of breath Technique: One view of the chest Comparison: 03/17/2020 Findings: Bilateral right greater than left infiltrates again demonstrated. The heart size is normal. There is a left arm PICC in good position. Impression: Unchanged, over 5 days, findings as above. Chest x-ray - 03/29/20 - Procedure: XRAY Chest 1v Indication: Cough Technique: One view of the chest Comparison: 03/28/2020 Findings: Bilateral infiltrates are unchanged or slightly worse, allowing for differences in exposure technique. The pleural spaces are clear. The heart size is normal. Stable satisfactory position of endotracheal tube, left arm PICC. Orogastric tube has retracted somewhat the position remains satisfactory. Impression: Stable to slightly worse bilateral infiltrates. 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 Interim advancement of orogastric tube as well. Bilateral infiltrates are unchanged. Left arm PICC remains Impression: Improved and now satisfactory tube positions as described. ICU nurse Maeve notified at the time of interpretation Microbiology Date/Time Source Procedure Growth Status 03/29/20 18:57 Indwelling Cath Urine Culture - Preliminary NO GROWTH AFTER 24 HOURS Resulted 03/29/20 18:57 Sputum Gram Stain - Final Resulted 03/29/20 18:57 Sputum Sputum Culture - Preliminary NORMAL UPPER RESPIRATORY WILIAM AT 24 ... Resulted 03/29/20 18:57 Nasopharynx Coronavirus COVID-19 PCR ([facility]) - Final Complete 03/29/20 15:10 Blood Blood Culture - Preliminary NO GROWTH AFTER 24 HOURS Resulted 03/29/20 14:50 Blood Blood Culture - Preliminary Resulted Laboratory Tests Test 03/31/20 00:30 03/31/20 03:00 03/31/20 08:50 POC Whole Blood Glucose 125 MG/DL (74-106) H White Blood Count 11.7 K/UL (4.8-10.8) H Red Blood Count 3.84 M/UL (4.70-6.10) L Hemoglobin 11.5 G/DL (14.2-18.0) L Hematocrit 34.4 % (42.0-52.0) L Mean Corpuscular Volume 90 FL (80-99) Mean Corpuscular Hemoglobin 29.9 PG (27.0-31.0) Mean Corpuscular Hemoglobin Concent 33.4 G/DL (32.0-36.0) Red Cell Distribution Width 15.2 % (11.6-14.8) H Platelet Count 217 K/UL (150-450) Mean Platelet Volume 6.0 FL (6.5-10.1) L Neutrophils (%) (Auto) % (45.0-75.0) Lymphocytes (%) (Auto) % (20.0-45.0) Monocytes (%) (Auto) % (1.0-10.0) Eosinophils (%) (Auto) % (0.0-3.0) Basophils (%) (Auto) % (0.0-2.0) Differential Total Cells Counted 100 Neutrophils % (Manual) 89 % (45-75) H Lymphocytes % (Manual) 7 % (20-45) L Monocytes % (Manual) 4 % (1-10) Eosinophils % (Manual) 0 % (0-3) Basophils % (Manual) 0 % (0-2) Band Neutrophils 0 % (0-8) Platelet Estimate Adequate Platelet Morphology Normal Hypochromasia 1+ Anisocytosis 1+ Sodium Level 141 MMOL/L (136-145) Potassium Level 4.4 MMOL/L (3.5-5.1) Chloride Level 102 MMOL/L (98-107) Carbon Dioxide Level 34 MMOL/L (21-32) H Anion Gap 5 mmol/L (5-15) Blood Urea Nitrogen 33 mg/dL (7-18) H Creatinine 0.7 MG/DL (0.55-1.30) Estimat Glomerular Filtration Rate > 60 mL/min (>60) Glucose Level 124 MG/DL (74-106) H Calcium Level 8.6 MG/DL (8.5-10.1) Phosphorus Level 2.5 MG/DL (2.5-4.9) Magnesium Level 2.3 MG/DL (1.8-2.4) Total Bilirubin 0.5 MG/DL (0.2-1.0) Aspartate Amino Transf (AST/SGOT) 47 U/L (15-37) H Alanine Aminotransferase (ALT/SGPT) 192 U/L (12-78) H Alkaline Phosphatase 237 U/L (46-116) H C-Reactive Protein, Quantitative < 0.4 mg/dL (0.00-0.90) Pro-B-Type Natriuretic Peptide 759 pg/mL (0-125) H Total Protein 5.8 G/DL (6.4-8.2) L Albumin 2.2 G/DL (3.4-5.0) L Globulin 3.6 g/dL Albumin/Globulin Ratio 0.6 (1.0-2.7) L Vancomycin Level Trough 14.7 ug/mL (5.0-12.0) H Arterial Blood pH 7.378 (7.350-7.450) Arterial Blood Partial Pressure CO2 63.1 mmHg (35.0-45.0) *H Arterial Blood Partial Pressure O2 90.0 mmHg (75.0-100.0) Arterial Blood HCO3 36.3 mmol/L (22.0-26.0) H Arterial Blood Oxygen Saturation 96.4 % (95-100) Arterial Blood Base Excess 9.0 (-2-2) H Shemar Test Positive Current Medications Medications (Trade) Dose Ordered Sig/Dennis Route PRN Reason Start Time Stop Time Status Last Admin Dose Admin Acetaminophen (Tylenol) 650 mg Q4H PRN ORAL Mild Pain (Pain Scale 1-3) 03/09/20 12:00 04/08/20 11:59 03/31/20 12:21 Bisacodyl (Dulcolax) 10 mg HSPRN PRN RECTAL Constipation 02/05/20 13:15 05/05/20 13:14 Bisacodyl (Dulcolax) 10 mg Q12H PRN RECTAL Constipation 03/18/20 16:45 06/16/20 16:44 Chlorhexidine Gluconate (Marlen-Hex 2%) 1 applic DAILY@2000 TOPIC 03/30/20 20:00 06/28/20 19:59 03/30/20 20:50 Dextrose (Dextrose 50%) 25 ml Q30M PRN IV Hypoglycemia 03/29/20 20:45 06/27/20 20:44 Dextrose (Dextrose 50%) 50 ml Q30M PRN IV Hypoglycemia 03/29/20 20:45 06/27/20 20:44 Enoxaparin Sodium (Lovenox) 40 mg DAILY SUBQ 03/13/20 12:00 06/11/20 11:59 03/31/20 09:49 Fentanyl Citrate 250 ml @ 1 mls/hr Q24H IV 03/30/20 19:50 04/04/20 19:30 03/31/20 09:48 Furosemide (Lasix) 20 mg EVERY 8 HOURS IV 03/30/20 14:00 04/18/20 13:59 03/31/20 14:29 Hydralazine HCl (Apresoline) 10 mg Q4H PRN IV For High Blood Pressure 03/30/20 12:15 06/28/20 12:14 03/31/20 06:13 Insulin Aspart (NovoLOG) Q6HR SUBQ 03/30/20 00:00 06/28/20 00:00 Labetalol HCl (Normodyne) 10 mg Q4H PRN IV sbp greater tahtn 160 03/28/20 17:30 04/27/20 17:29 Lactulose (Cephulac) 20 gm THREE TIMES A DAY ORAL 03/08/20 13:00 04/07/20 12:59 03/31/20 12:09 Meropenem 1 gm/ Sodium Chloride 100 ml @ 200 mls/hr Q8HR IVPB 03/29/20 15:00 04/03/20 14:59 03/31/20 14:30 Methylprednisolone Sodium Succinate (Solu-MEDROL) 40 mg EVERY 8 HOURS IVP 03/22/20 14:00 06/20/20 13:59 03/31/20 14:29 Metoclopramide HCl (Reglan) 10 mg Q6H IVP 03/30/20 15:00 04/29/20 14:59 03/31/20 14:29 Micafungin Sodium 100 mg/Sodium Chloride 100 ml @ 100 mls/hr Q24H IVPB 03/29/20 15:00 04/05/20 14:59 03/31/20 14:30 Midazolam HCl 100 ml @ 0 mls/hr Q24H PRN IV Agitation 03/31/20 10:03 04/02/20 10:02 03/31/20 10:26 Norepinephrine Bitartrate 250 ml @ 0 mls/hr Q24H PRN IV For hypotension 03/29/20 11:31 04/06/20 11:30 03/31/20 11:15 Polyethylene Glycol (Miralax) 17 gm BEDTIME ORAL 03/08/20 21:00 04/07/20 20:59 03/30/20 20:49 Trimethoprim/ Sulfamethoxazole (Bactrim-DS) 1 tab Q24H ORAL 03/29/20 17:00 04/05/20 16:59 03/30/20 17:56 Vitamin D (Vitamin D) 5,000 unit DAILY ORAL 03/15/20 09:00 04/14/20 08:59 03/31/20 08:47 Kisha Salazar MD Mar 31, 2020 16:20
--- NOTE | 2020-03-31 16:24 | NUR ---
INSURANCE CLINCALS AND REVIEW FAXED TO [employer] T: [phone] #1 F: [phone] AND [employer]:JACQUELINE JAMES [phone] F: [phone]
--- NOTE | 2020-03-31 16:40 | NUR ---
NURSE NOTES: Dr Salazar rounded on the pt. Update given. He reported that due to the yeast in the blood culture, the PICC line should be removed and replaced. Order placed by hot metal charger. Will follow up with consent from family.
[2020-03-31] MEDS: Bactrim-DS 1 tab ORAL SCH (17:28)
--- NOTE | 2020-03-31 18:12 | Cardiology Progress Note ---
Assessment/Plan Assessment/Plan Acute covid 19 pneumonia hypoxemia infiltrate bilat bacteremia hypernatremia / hyponatremia mild abn lfts tachy post intubation fever hr is better t developed fever earlier to day bp seems ok hypoxemia unlikely cardiac related off anticoagulation except for dvt ppx dose continue supportive care tube feeding echo reviewed last on 03/28 still shows normla lv function no valve pathology cxr noted no change still with bilat infiltrate agian today wbc nto sif changed previously has had higher diuretic to the point of hypernatremia to see if keeping dry would help his respiratory status but not successful he was on full dose heparin previously as well now on dvt ppx consider transfer to higher level tele reviewed sinus remains critically still on max oxygen but improved with sedation and increased peep d/w rn diuretics resumed Subjective Subjective pt in covid 19 isolation intubated , responsive not communicative n the vent Objective Last 24 Hour Vital Signs Date Time Temp Pulse Resp B/P (MAP) Pulse Ox O2 Delivery O2 Flow Rate FiO2 03/31/20 17:42 18 140/83 Mechanical Ventilator 100 03/31/20 17:00 107 18 125/77 (93) 98 03/31/20 16:45 105 18 119/80 (93) 98 03/31/20 16:30 106 18 129/81 (97) 99 03/31/20 16:15 105 18 118/81 (93) 99 03/31/20 16:00 Mechanical Ventilator 03/31/20 16:00 100 03/31/20 16:00 98.9 103 18 110/76 (87) 100 03/31/20 15:45 103 18 113/71 (85) 100 03/31/20 15:30 103 18 117/69 (85) 100 03/31/20 15:15 99 18 122/76 (91) 100 03/31/20 15:10 106 17 100 03/31/20 15:00 99 18 113/69 (84) 100 03/31/20 14:45 101 18 108/71 (83) 100 03/31/20 14:30 103 18 104/65 (78) 100 03/31/20 14:15 102 18 97/67 (77) 100 03/31/20 14:00 104 18 97/63 (74) 100 03/31/20 13:45 104 18 102/66 (78) 100 03/31/20 13:30 105 18 100/63 (75) 100 03/31/20 13:15 108 18 101/68 (79) 100 03/31/20 13:00 111 18 100/63 (75) 100 03/31/20 12:51 98.5 03/31/20 12:45 110 18 97/63 (74) 100 03/31/20 12:30 112 18 93/65 (74) 100 03/31/20 12:15 115 18 96/56 (69) 100 03/31/20 12:00 Mechanical Ventilator 03/31/20 12:00 100 03/31/20 12:00 123 03/31/20 12:00 117 18 101/58 (72) 100 03/31/20 11:45 122 18 101/56 (71) 99 03/31/20 11:30 102.4 130 18 75/60 (65) 95 03/31/20 11:17 142 18 78/46 (57) 94 03/31/20 11:15 85/50 03/31/20 11:15 146 18 85/50 (62) 94 03/31/20 11:00 138 17 98/61 (73) 100 03/31/20 10:58 137 18 100 03/31/20 10:45 136 17 107/65 (79) 100 03/31/20 10:30 136 19 104/68 (80) 100 03/31/20 10:26 27 Mechanical Ventilator 100 03/31/20 10:15 137 20 100/71 (81) 99 03/31/20 10:00 138 22 120/69 (86) 99 03/31/20 09:48 23 119/77 Mechanical Ventilator 100 03/31/20 09:45 139 20 119/77 (91) 100 03/31/20 09:30 134 22 125/77 (93) 100 03/31/20 09:15 137 23 128/71 (90) 99 03/31/20 09:00 135 23 125/79 (94) 99 03/31/20 08:45 135 26 117/78 (91) 98 03/31/20 08:30 131 26 119/70 (86) 95 03/31/20 08:24 102.2 03/31/20 08:15 134 30 125/76 (92) 90 03/31/20 08:00 Mechanical Ventilator 03/31/20 08:00 100 03/31/20 08:00 133 03/31/20 08:00 102.2 130 29 123/77 (92) 95 03/31/20 07:45 133 30 132/76 (94) 97 03/31/20 07:30 133 30 141/78 (99) 98 03/31/20 07:15 102.6 132 31 124/77 (93) 93 03/31/20 07:05 132 30 100 03/31/20 07:00 29 141/78 Endotracheal Tube 80 03/31/20 07:00 133 30 124/77 (93) 93 03/31/20 06:13 177/118 03/31/20 06:00 141 22 180/106 (130) 95 03/31/20 06:00 28 180/106 Endotracheal Tube 80 03/31/20 05:00 24 135/83 Endotracheal Tube 80 03/31/20 05:00 123 22 132/83 (99) 97 03/31/20 04:00 80 03/31/20 04:00 123 03/31/20 04:00 23 138/85 Endotracheal Tube 80 03/31/20 04:00 98.7 127 17 138/85 (102) 98 03/31/20 04:00 Mechanical Ventilator 03/31/20 03:28 122 19 80 03/31/20 03:00 119 18 133/85 (101) 99 03/31/20 03:00 20 142/95 Endotracheal Tube 80 03/31/20 02:00 124 22 146/94 (111) 99 03/31/20 02:00 19 141/88 Endotracheal Tube 80 03/31/20 01:00 20 140/79 Endotracheal Tube 90 03/31/20 01:00 24 144/89 Endotracheal Tube 90 03/31/20 01:00 113 18 137/83 (101) 98 03/31/20 00:00 113 03/31/20 00:00 98.9 113 21 133/86 (102) 97 03/31/20 00:00 Mechanical Ventilator 03/31/20 00:00 19 150/94 Mechanical Ventilator 90 03/31/20 00:00 100 03/30/20 23:28 117 23 90 03/30/20 23:00 114 21 152/93 (112) 97 03/30/20 23:00 20 147/99 Endotracheal Tube 90 03/30/20 22:00 22 161/92 Endotracheal Tube 90 03/30/20 22:00 111 18 141/96 (111) 98 03/30/20 21:00 113 22 133/93 (106) 98 03/30/20 21:00 21 156/96 Endotracheal Tube 90 03/30/20 20:51 20 145/101 Endotracheal Tube 90 03/30/20 20:00 115 03/30/20 20:00 110 19 137/89 (105) 100 03/30/20 20:00 100 03/30/20 20:00 Mechanical Ventilator 03/30/20 19:46 112 18 90 03/30/20 19:00 104 12 149/87 (107) 100 03/30/20 19:00 12 149/87 Mechanical Ventilator 100 Intake and Output 03/30/20 03/31/20 19:00 07:00 Intake Total 1582.75 ml 1775 ml Output Total 755 ml 800 ml Balance 827.75 ml 975 ml Free Water 120 ml IV Total 1162.75 ml 1275 ml Tube Feeding 300 ml 380 ml Other 120 ml Output Urine Total 755 ml 800 ml Laboratory Tests Test 03/31/20 00:30 03/31/20 03:00 03/31/20 08:50 POC Whole Blood Glucose 125 MG/DL (74-106) H White Blood Count 11.7 K/UL (4.8-10.8) H Red Blood Count 3.84 M/UL (4.70-6.10) L Hemoglobin 11.5 G/DL (14.2-18.0) L Hematocrit 34.4 % (42.0-52.0) L Mean Corpuscular Volume 90 FL (80-99) Mean Corpuscular Hemoglobin 29.9 PG (27.0-31.0) Mean Corpuscular Hemoglobin Concent 33.4 G/DL (32.0-36.0) Red Cell Distribution Width 15.2 % (11.6-14.8) H Platelet Count 217 K/UL (150-450) Mean Platelet Volume 6.0 FL (6.5-10.1) L Neutrophils (%) (Auto) % (45.0-75.0) Lymphocytes (%) (Auto) % (20.0-45.0) Monocytes (%) (Auto) % (1.0-10.0) Eosinophils (%) (Auto) % (0.0-3.0) Basophils (%) (Auto) % (0.0-2.0) Differential Total Cells Counted 100 Neutrophils % (Manual) 89 % (45-75) H Lymphocytes % (Manual) 7 % (20-45) L Monocytes % (Manual) 4 % (1-10) Eosinophils % (Manual) 0 % (0-3) Basophils % (Manual) 0 % (0-2) Band Neutrophils 0 % (0-8) Platelet Estimate Adequate Platelet Morphology Normal Hypochromasia 1+ Anisocytosis 1+ Sodium Level 141 MMOL/L (136-145) Potassium Level 4.4 MMOL/L (3.5-5.1) Chloride Level 102 MMOL/L (98-107) Carbon Dioxide Level 34 MMOL/L (21-32) H Anion Gap 5 mmol/L (5-15) Blood Urea Nitrogen 33 mg/dL (7-18) H Creatinine 0.7 MG/DL (0.55-1.30) Estimat Glomerular Filtration Rate > 60 mL/min (>60) Glucose Level 124 MG/DL (74-106) H Calcium Level 8.6 MG/DL (8.5-10.1) Phosphorus Level 2.5 MG/DL (2.5-4.9) Magnesium Level 2.3 MG/DL (1.8-2.4) Total Bilirubin 0.5 MG/DL (0.2-1.0) Aspartate Amino Transf (AST/SGOT) 47 U/L (15-37) H Alanine Aminotransferase (ALT/SGPT) 192 U/L (12-78) H Alkaline Phosphatase 237 U/L (46-116) H C-Reactive Protein, Quantitative < 0.4 mg/dL (0.00-0.90) Pro-B-Type Natriuretic Peptide 759 pg/mL (0-125) H Total Protein 5.8 G/DL (6.4-8.2) L Albumin 2.2 G/DL (3.4-5.0) L Globulin 3.6 g/dL Albumin/Globulin Ratio 0.6 (1.0-2.7) L Vancomycin Level Trough 14.7 ug/mL (5.0-12.0) H Arterial Blood pH 7.378 (7.350-7.450) Arterial Blood Partial Pressure CO2 63.1 mmHg (35.0-45.0) *H Arterial Blood Partial Pressure O2 90.0 mmHg (75.0-100.0) Arterial Blood HCO3 36.3 mmol/L (22.0-26.0) H Arterial Blood Oxygen Saturation 96.4 % (95-100) Arterial Blood Base Excess 9.0 (-2-2) H Shemar Test Positive Microbiology Date/Time Source Procedure Growth Status 03/29/20 18:57 Indwelling Cath Urine Culture - Preliminary NO GROWTH AFTER 24 HOURS Resulted 03/29/20 18:57 Sputum Gram Stain - Final Resulted 03/29/20 18:57 Sputum Sputum Culture - Preliminary NORMAL UPPER RESPIRATORY WILIAM AT 24 ... Resulted 03/29/20 18:57 Nasopharynx Coronavirus COVID-19 PCR ([facility]) - Final Complete 03/29/20 15:10 Blood Blood Culture - Preliminary NO GROWTH AFTER 24 HOURS Resulted 03/29/20 14:50 Blood Blood Culture - Preliminary Resulted Objective pt in covid 19 isoaltion with acute infection Respiratory/Chest: normal breath sounds, no respiratory distress, no accessory muscle use, crackles/rales - less , rhonchi - bilaterally - less Cardiovascular: normal rate, regular rhythm, no gallop/murmur Abdomen: normal bowel sounds, soft, non tender, no organomegaly, non distended Extremities: no cyanosis Manan Awan MD Mar 31, 2020 18:11
--- NOTE | 2020-03-31 19:15 | NUR ---
NURSE HAND-OFF REPORT: Latest Vital Signs: Temperature 100.8 , Pulse 118 , B/P 129 /89 , Respiratory Rate 18 , O2 SAT 99 , Mechanical Ventilator, O2 Flow Rate . Vital Sign Comment: VS stable EKG Rhythm: Sinus Tachycardia Rhythm change?: N Notified?: Courtney Paige MD Response: Message left await call Latest Hassan Fall Score: 45 Fall Risk: High Risk Safety Measures: Call light Within Reach, Bed Alarm Zone 1, Side Rails Side Rails x3, Bed position Low and Locked. Fall Precautions: Yellow Socks Yellow Gown Door Sign Patient Fall Education Report given to PRIYANKA Mantilla.
[2020-03-31] MEDS: Dyna-Hex 2% Top Sol 2oz TOPIC SCH (19:29)
--- NOTE | 2020-03-31 19:50 | NUR ---
NURSE NOTES: PATIENT SEDATED, ON ETT TO VENT, AC 18/TV750/FIO2 100%/PEEP8, O2 SATURATION 100% NOTED, OGT INTACT AND PATENT, ONGOING GLUCERNA 1.5 AT 40ML/HR, RESIDUE 40ML NOTED, KEPT HOB 30 DEGREES AND ASPIRATION PRECAUTION, ABDOMEN SOFT, NON TENDER, F/C INTACT AND PATENT, NAYELI COLOR URINE OUTED, PICC LINE TO LEFT UPPER ARM, INTACT AND PATENT, ONGOING FENTANYL 300MCG/HR, VERSED 5MG/HR AND LEVOPHED 4MCG/MIN STATUS, KEPT RASS SCORE -2, 2 POINT SOFT RESTRAINTS STATUS, MADE LOWER BED POSITION, ON BED ALARM AND LOCKED, SMALL COOLING BLANKET STATUS, WILL CONTINUE TO MONITOR.
[2020-03-31] MEDS: Miralax 17gm pkt ORAL SCH (20:08)
--- NOTE | 2020-03-31 22:32 | NUR ---
NURSE NOTES: PATIENT SEDATED, TEMP 99.8F NOTED AFTER COOLING MEASURE, WILL CONTINUE TO MONITOR.
[2020-04-01] VITALS (25 sets, daily range): BP systolic 102–136; BP diastolic 65–80
--- NOTE | 2020-04-01 00:13 | NUR ---
NURSE NOTES: VSS WITH LEVOPHED 4MCG/MIN, KEPT RASS SCORE -2 WITH VERSED 5MG/HR AND FENTANYL DRIP 300MCG/HR ORDERED, RECTAL TUBE STATUS DUE TO DIARRHEA, WILL CONTINUE TO MONITOR.
--- NOTE | 2020-04-01 02:37 | NUR ---
NURSE NOTES: PATIENT SEDATED, RASS SCORE -2, VSS AT THIS TIME, WILL CONTINUE PLAN OF CARE.
[2020-04-01] MEDS: fentaNYL 2500mcg/NS 250ml 250 ML IV SCH ×3 (02:50→19:30)
[2020-04-01] MEDS: Metoclopramide 10mg/2ml Inj IVP SCH ×4 (02:50→20:22)
[2020-04-01 04:47] LABS: HEMATOCRIT 31.6 % (42.0-52.0); HEMOGLOBIN 10.4 G/DL (14.2-18.0); MEAN CORPUSCULAR VOLUME 88 FL (80-99); PLATELET COUNT 208 K/UL (150-450); RED BLOOD COUNT 3.61 M/UL (4.70-6.10); RED CELL DISTRIBUTION WIDTH 14.8 % (11.6-14.8); WHITE BLOOD COUNT 9.8 K/UL (4.8-10.8)
[2020-04-01 05:04] LABS: ALANINE AMINOTRANSFERASE 152 U/L (12-78); ALBUMIN 2.1 G/DL (3.4-5.0); ALBUMIN/GLOBULIN RATIO 0.6 (1.0-2.7); ALKALINE PHOSPHATASE 202 U/L (46-116); ANION GAP 4 mmol/L (5-15); ASPARTATE AMINO TRANSFERASE 36 U/L (15-37); BILIRUBIN,TOTAL 0.5 MG/DL (0.2-1.0); BLOOD UREA NITROGEN 36 mg/dL (7-18); CALCIUM 7.8 MG/DL (8.5-10.1); CARBON DIOXIDE 34 MMOL/L (21-32); CHLORIDE 108 MMOL/L (98-107); CREATININE 0.7 MG/DL (0.55-1.30); POTASSIUM 3.7 MMOL/L (3.5-5.1); SODIUM 145 MMOL/L (136-145)
[2020-04-01 05:15] LABS: PHOSPHORUS 2.9 MG/DL (2.5-4.9)
[2020-04-01] MEDS: Versed 50mg/NS 100ml 100 ML IV PRN ×2 (05:17→16:47)
[2020-04-01] MEDS: Solu-MEDROL 40mg Inj IVP SCH ×3 (05:21→21:30)
--- NOTE | 2020-04-01 05:25 | NUR ---
NURSE NOTES: MORNING CARE WAS DONE, RECTAL TUBE INTACT AND GREENISH DIARRHEA STATUS, WILL CONTINUE TO MONITOR.
[2020-04-01] MEDS: NovoLOG Insulin Flexpen SUBQ SCH ×4 (05:37→23:34)
--- NOTE | 2020-04-01 07:22 | NUR ---
NURSE HAND-OFF REPORT: Latest Vital Signs: Temperature 98.4 , Pulse 89 , B/P 117 /77 , Respiratory Rate 18 , O2 SAT 99 , Mechanical Ventilator, O2 Flow Rate . Vital Sign Comment: EKG Rhythm: Sinus Rhythm Rhythm change?: N Notified?: Courtney Paige MD Response: Message left await call Latest Hassan Fall Score: 45 Fall Risk: High Risk Safety Measures: Call light Within Reach, Bed Alarm Zone 1, Side Rails Side Rails x3, Bed position Low and Locked. Fall Precautions: Yellow Socks Door Sign Patient Fall Education Report given to PRIYANKA BANEGAS.
--- NOTE | 2020-04-01 07:25 | NUR ---
NURSE NOTES: Report received from Jose Rafael Bajwa RN.Pt asleep,with low grade fever T99.4, noted no resp distress,orally intubated ETT 7.5 ,lip line 26,connected to vent,ordered vent settings tolerated,pt on 80% Fio2 with good saturation on high 90's,no signs of pain or discomfort,SR on the monitor,OGT feeding Glucerna 1.5 at 40 ml/hr inplaced per auscultation,with no residual noted,Brownlee cath draining adequate yellow urine.bilat wrist restraints in placed,SR up x2 HOB elevated bed lock in lowest position,will continue with plans of care
[2020-04-01] MEDS: Lactulose 20gm/30ml UDC ORAL SCH ×3 (08:58→17:37)
[2020-04-01] MEDS: Enoxaparin 40mg Inj SUBQ SCH (08:58)
[2020-04-01] MEDS: Vitamin D 1000 units Tab ORAL SCH (08:59)
--- NOTE | 2020-04-01 09:47 | NUR ---
NURSE NOTES: Cold compress continuous to bilat armpits and forehead,will monitor temp continously.
--- NOTE | 2020-04-01 11:02 | Cardiology Progress Note ---
Assessment/Plan Assessment/Plan Acute covid 19 pneumonia hypoxemia infiltrate bilat bacteremia hypernatremia / hyponatremia mild abn lfts tachy post intubation fever hr is normal feebrile agian toady but lower thatn yest rn indicates responsive intermittetly but sedated with med bp seems ok hypoxemia unlikely cardiac related off anticoagulation except for dvt ppx dose continue supportive care tube feeding echo reviewed last on 03/28 still shows normla lv function no valve pathology cxr from 03/31 noted no change still with bilat infiltrate again wbc improved previously has had higher diuretic to the point of hypernatremia to see if keeping dry would help his respiratory status but not successful he was on full dose heparin previously as well now on dvt ppx consider transfer to higher level although on high flow oxygen will be prohibitive at this time tele reviewed sinus remains critically still on max oxygen but improved with sedation and increased peep d/w rn on diuretics in remin fluid + tomorrow will increase the lasix id addressing temp fio2 decreased to 80% remain 98% !! good sign not much pulm secretion d/w dr isaac vilchis today covid pcr negative , however considering that it took 3 tests to finally initially identify his covid infection i am not sure if we can trust Subjective Subjective pt in covid 19 isolation intubated , responsive not communicative n the vent Objective Last 24 Hour Vital Signs Date Time Temp Pulse Resp B/P (MAP) Pulse Ox O2 Delivery O2 Flow Rate FiO2 04/01/20 10:07 82 18 122/78 (93) 98 04/01/20 09:00 87 18 123/80 (94) 98 04/01/20 09:00 123/80 04/01/20 09:00 18 Mechanical Ventilator 80 04/01/20 09:00 18 123/80 Mechanical Ventilator 80 04/01/20 08:00 80 04/01/20 08:00 94 04/01/20 08:00 117/74 04/01/20 08:00 18 Mechanical Ventilator 80 04/01/20 08:00 18 118/74 Mechanical Ventilator 80 04/01/20 08:00 Mechanical Ventilator 04/01/20 08:00 99.4 89 18 118/74 (89) 97 04/01/20 07:23 88 18 80 04/01/20 07:00 89 18 117/77 (90) 99 04/01/20 07:00 117/77 04/01/20 07:00 18 Mechanical Ventilator 100 04/01/20 07:00 18 117/77 Mechanical Ventilator 100 04/01/20 06:00 93 18 135/78 (97) 100 04/01/20 06:00 135/78 04/01/20 06:00 18 Mechanical Ventilator 100 04/01/20 06:00 18 135/78 Mechanical Ventilator 100 04/01/20 05:17 18 Mechanical Ventilator 100 04/01/20 05:00 114/70 04/01/20 05:00 18 Mechanical Ventilator 100 04/01/20 05:00 18 114/70 Mechanical Ventilator 100 04/01/20 05:00 87 18 114/70 (85) 100 04/01/20 04:00 100 04/01/20 04:00 98.4 88 18 118/75 (89) 99 04/01/20 04:00 118/75 04/01/20 04:00 18 Mechanical Ventilator 100 04/01/20 04:00 18 118/75 Mechanical Ventilator 100 04/01/20 04:00 88 04/01/20 04:00 Mechanical Ventilator 04/01/20 03:15 90 18 100 04/01/20 03:00 89 18 120/72 (88) 100 04/01/20 03:00 120/72 04/01/20 03:00 18 Mechanical Ventilator 100 04/01/20 03:00 18 120/72 Mechanical Ventilator 100 04/01/20 02:50 18 115/70 Mechanical Ventilator 100 04/01/20 02:00 119/77 04/01/20 02:00 18 Mechanical Ventilator 100 04/01/20 02:00 18 119/77 Mechanical Ventilator 100 04/01/20 02:00 93 18 119/77 (91) 100 04/01/20 01:00 89 18 116/75 (89) 100 04/01/20 01:00 116/75 04/01/20 01:00 18 Mechanical Ventilator 100 04/01/20 01:00 18 116/75 Mechanical Ventilator 100 04/01/20 00:30 90 18 114/73 (87) 100 04/01/20 00:00 Mechanical Ventilator 04/01/20 00:00 118/74 04/01/20 00:00 18 Mechanical Ventilator 100 04/01/20 00:00 18 118/74 Mechanical Ventilator 100 04/01/20 00:00 99.5 95 18 118/74 (89) 100 04/01/20 00:00 95 04/01/20 00:00 100 03/31/20 23:30 99 24 131/102 (112) 98 03/31/20 23:24 98 18 100 03/31/20 23:00 110/76 03/31/20 23:00 18 Mechanical Ventilator 100 03/31/20 23:00 18 110/76 Mechanical Ventilator 100 03/31/20 23:00 99 18 110/76 (87) 100 03/31/20 22:00 117/74 03/31/20 22:00 18 Mechanical Ventilator 100 03/31/20 22:00 18 117/74 Mechanical Ventilator 100 03/31/20 22:00 96 18 117/74 (88) 100 03/31/20 21:30 99 18 103/76 (85) 100 03/31/20 21:00 105 18 107/74 (85) 100 03/31/20 21:00 107/74 03/31/20 21:00 18 Mechanical Ventilator 100 03/31/20 21:00 18 107/74 Mechanical Ventilator 100 03/31/20 20:45 111 18 116/80 (92) 99 03/31/20 20:38 100.5 03/31/20 20:30 116 18 121/45 (70) 98 03/31/20 20:15 111 18 124/80 (95) 100 03/31/20 20:12 129/89 03/31/20 20:00 100.8 111 18 129/89 (102) 100 03/31/20 20:00 118 03/31/20 20:00 Mechanical Ventilator 03/31/20 20:00 100 03/31/20 20:00 18 Mechanical Ventilator 100 03/31/20 20:00 18 129/89 Mechanical Ventilator 100 03/31/20 19:45 114 18 128/80 (96) 100 03/31/20 19:30 118 17 124/87 (99) 99 03/31/20 19:22 118 18 100 03/31/20 19:02 18 Mechanical Ventilator 100 03/31/20 19:00 115 18 139/96 (110) 99 03/31/20 19:00 18 133/88 Mechanical Ventilator 100 03/31/20 18:45 113 18 142/93 (109) 99 03/31/20 18:30 109 13 144/97 (113) 99 03/31/20 18:15 106 18 133/83 (100) 100 03/31/20 18:00 106 18 137/90 (106) 99 03/31/20 18:00 18 133/83 Mechanical Ventilator 100 03/31/20 17:45 108 18 136/86 (103) 99 03/31/20 17:42 18 140/83 Mechanical Ventilator 100 03/31/20 17:30 104 18 140/83 (102) 99 03/31/20 17:15 106 18 136/79 (98) 98 03/31/20 17:00 18 136/79 Mechanical Ventilator 100 03/31/20 17:00 107 18 125/77 (93) 98 03/31/20 16:45 105 18 119/80 (93) 98 03/31/20 16:30 106 18 129/81 (97) 99 03/31/20 16:15 105 18 118/81 (93) 99 03/31/20 16:00 Mechanical Ventilator 03/31/20 16:00 100 03/31/20 16:00 18 118/81 Mechanical Ventilator 100 03/31/20 16:00 105 03/31/20 16:00 98.9 103 18 110/76 (87) 100 03/31/20 15:45 103 18 113/71 (85) 100 03/31/20 15:30 103 18 117/69 (85) 100 03/31/20 15:15 99 18 122/76 (91) 100 03/31/20 15:10 106 17 100 03/31/20 15:00 99 18 113/69 (84) 100 03/31/20 15:00 18 118/81 Mechanical Ventilator 100 03/31/20 14:45 101 18 108/71 (83) 100 03/31/20 14:30 103 18 104/65 (78) 100 03/31/20 14:15 102 18 97/67 (77) 100 03/31/20 14:00 18 Mechanical Ventilator 100 03/31/20 14:00 18 97/67 Mechanical Ventilator 100 03/31/20 14:00 104 18 97/63 (74) 100 03/31/20 13:45 104 18 102/66 (78) 100 03/31/20 13:30 105 18 100/63 (75) 100 03/31/20 13:15 108 18 101/68 (79) 100 03/31/20 13:00 18 Mechanical Ventilator 100 03/31/20 13:00 18 101/68 Mechanical Ventilator 100 03/31/20 13:00 111 18 100/63 (75) 100 03/31/20 12:51 98.5 03/31/20 12:45 110 18 97/63 (74) 100 03/31/20 12:30 112 18 93/65 (74) 100 03/31/20 12:15 115 18 96/56 (69) 100 03/31/20 12:00 Mechanical Ventilator 03/31/20 12:00 100 03/31/20 12:00 18 Mechanical Ventilator 100 03/31/20 12:00 18 96/56 Mechanical Ventilator 100 03/31/20 12:00 123 03/31/20 12:00 117 18 101/58 (72) 100 03/31/20 11:45 122 18 101/56 (71) 99 03/31/20 11:30 102.4 130 18 75/60 (65) 95 03/31/20 11:17 142 18 78/46 (57) 94 03/31/20 11:15 85/50 03/31/20 11:15 146 18 85/50 (62) 94 03/31/20 11:00 138 17 98/61 (73) 100 03/31/20 11:00 17 Mechanical Ventilator 100 03/31/20 11:00 17 86/42 Mechanical Ventilator 100 03/31/20 10:58 137 18 100 General Appearance: no apparent distress, on vent, patient on isolation, isolation precautions Extremities: no swelling Intake and Output 03/31/20 04/01/20 19:00 07:00 Intake Total 1291.75 ml 1637.5 ml Output Total 1425 ml 1420 ml Balance -133.25 ml 217.5 ml Free Water 160 ml IV Total 811.75 ml 837.5 ml Tube Feeding 480 ml 480 ml Other 160 ml Output Urine Total 1425 ml 1120 ml Stool Total 300 ml # Bowel Movements 4 Laboratory Tests Test 03/31/20 18:18 03/31/20 23:10 04/01/20 03:35 04/01/20 07:29 POC Whole Blood Glucose 189 MG/DL (74-106) H 168 MG/DL (74-106) H White Blood Count 9.8 K/UL (4.8-10.8) Red Blood Count 3.61 M/UL (4.70-6.10) L Hemoglobin 10.4 G/DL (14.2-18.0) L Hematocrit 31.6 % (42.0-52.0) L Mean Corpuscular Volume 88 FL (80-99) Mean Corpuscular Hemoglobin 28.8 PG (27.0-31.0) Mean Corpuscular Hemoglobin Concent 32.9 G/DL (32.0-36.0) Red Cell Distribution Width 14.8 % (11.6-14.8) Platelet Count 208 K/UL (150-450) Mean Platelet Volume 5.8 FL (6.5-10.1) L Neutrophils (%) (Auto) % (45.0-75.0) Lymphocytes (%) (Auto) % (20.0-45.0) Monocytes (%) (Auto) % (1.0-10.0) Eosinophils (%) (Auto) % (0.0-3.0) Basophils (%) (Auto) % (0.0-2.0) Differential Total Cells Counted 100 Neutrophils % (Manual) 92 % (45-75) H Lymphocytes % (Manual) 4 % (20-45) L Monocytes % (Manual) 4 % (1-10) Eosinophils % (Manual) 0 % (0-3) Basophils % (Manual) 0 % (0-2) Band Neutrophils 0 % (0-8) Platelet Estimate Adequate Platelet Morphology Normal Polychromasia Occasional Hypochromasia 1+ Anisocytosis 1+ Sodium Level 145 MMOL/L (136-145) Potassium Level 3.7 MMOL/L (3.5-5.1) Chloride Level 108 MMOL/L (98-107) H Carbon Dioxide Level 34 MMOL/L (21-32) H Anion Gap 4 mmol/L (5-15) L Blood Urea Nitrogen 36 mg/dL (7-18) H Creatinine 0.7 MG/DL (0.55-1.30) Estimat Glomerular Filtration Rate > 60 mL/min (>60) Glucose Level 166 MG/DL (74-106) H Calcium Level 7.8 MG/DL (8.5-10.1) L Phosphorus Level 2.9 MG/DL (2.5-4.9) Magnesium Level 2.1 MG/DL (1.8-2.4) Total Bilirubin 0.5 MG/DL (0.2-1.0) Gamma Glutamyl Transpeptidase 149 U/L (5-85) H Aspartate Amino Transf (AST/SGOT) 36 U/L (15-37) Alanine Aminotransferase (ALT/SGPT) 152 U/L (12-78) H Alkaline Phosphatase 202 U/L (46-116) H Lactate Dehydrogenase 396 U/L (81-234) H C-Reactive Protein, Quantitative 1.1 mg/dL (0.00-0.90) H Pro-B-Type Natriuretic Peptide 861 pg/mL (0-125) H Total Protein 5.4 G/DL (6.4-8.2) L Albumin 2.1 G/DL (3.4-5.0) L Globulin 3.3 g/dL Albumin/Globulin Ratio 0.6 (1.0-2.7) L Arterial Blood pH 7.370 (7.350-7.450) Arterial Blood Partial Pressure CO2 56.1 mmHg (35.0-45.0) *H Arterial Blood Partial Pressure O2 74.2 mmHg (75.0-100.0) L Arterial Blood HCO3 31.7 mmol/L (22.0-26.0) H Arterial Blood Oxygen Saturation 94.3 % (95-100) L Arterial Blood Base Excess 5.2 (-2-2) H Shemar Test Positive Microbiology Date/Time Source Procedure Growth Status 03/29/20 18:57 Indwelling Cath Urine Culture - Final NO GROWTH AFTER 48 HOURS Complete 03/29/20 18:57 Sputum Gram Stain - Final Complete 03/29/20 18:57 Sputum Culture - Final Kat Albicans Usual Upper Respiratory Hillary Complete 03/29/20 18:57 Nasopharynx Coronavirus COVID-19 PCR ([facility]) - Final Complete 03/29/20 15:10 Blood Blood Culture - Preliminary NO GROWTH AFTER 48 HOURS Resulted 03/29/20 14:50 Blood Blood Culture - Preliminary YEAST Resulted Objective pt in covid 19 isoaltion with acute infection Respiratory/Chest: normal breath sounds, no respiratory distress, no accessory muscle use, crackles/rales - less , rhonchi - bilaterally - less Cardiovascular: normal rate, regular rhythm, no gallop/murmur Abdomen: normal bowel sounds, soft, non tender, no organomegaly, non distended Extremities: no cyanosis Manan Awan MD Apr 01, 2020 11:02
--- NOTE | 2020-04-01 11:28 | NUR ---
NURSE NOTES: order to continue Protonix IVp q 12hrs obtained from Edilson Marinelli.
--- NOTE | 2020-04-01 12:01 | NUR ---
NURSE NOTES: Dr Mata at bedside,updated re pt's condition,shown results of ABG,no new orders given.
--- NOTE | 2020-04-01 12:24 | Pulmonology Progress Note ---
Subjective ROS Limited/Unobtainable: Yes Interval Events: Intubated 03/28/20 Constitutional: Reports: fever, other - + vent, + pressors, sedated HEENT: Repors: no symptoms Respiratory: Reports: dry cough, shortness of breath Cardiovascular: Reports: no symptoms Gastrointestinal/Abdominal: Denies: nausea, vomiting Psychiatric: Reports: other - NA Skin: Denies: rash Musculoskeletal: Reports: other - NA Allergies: Coded Allergies: No Known Allergies (Unverified , 02/05/20) Objective Last 24 Hour Vital Signs Date Time Temp Pulse Resp B/P (MAP) Pulse Ox O2 Delivery O2 Flow Rate FiO2 04/01/20 12:08 98.9 82 18 111/72 (85) 96 04/01/20 12:08 80 04/01/20 12:00 Mechanical Ventilator 04/01/20 12:00 77 04/01/20 11:26 18 112/74 Mechanical Ventilator 80 04/01/20 11:00 115/73 04/01/20 11:00 18 Mechanical Ventilator 80 04/01/20 11:00 18 115/73 Mechanical Ventilator 80 04/01/20 11:00 81 18 114/72 (86) 98 04/01/20 10:07 82 18 122/78 (93) 98 04/01/20 10:00 122/78 04/01/20 10:00 18 Mechanical Ventilator 80 04/01/20 10:00 18 122/78 Mechanical Ventilator 80 04/01/20 09:00 87 18 123/80 (94) 98 04/01/20 09:00 123/80 04/01/20 09:00 18 Mechanical Ventilator 80 04/01/20 09:00 18 123/80 Mechanical Ventilator 80 04/01/20 08:00 80 04/01/20 08:00 94 04/01/20 08:00 117/74 04/01/20 08:00 18 Mechanical Ventilator 80 04/01/20 08:00 18 118/74 Mechanical Ventilator 80 04/01/20 08:00 Mechanical Ventilator 04/01/20 08:00 99.4 89 18 118/74 (89) 97 04/01/20 07:23 88 18 80 04/01/20 07:00 89 18 117/77 (90) 99 04/01/20 07:00 117/77 04/01/20 07:00 18 Mechanical Ventilator 100 04/01/20 07:00 18 117/77 Mechanical Ventilator 100 04/01/20 06:00 93 18 135/78 (97) 100 04/01/20 06:00 135/78 04/01/20 06:00 18 Mechanical Ventilator 100 04/01/20 06:00 18 135/78 Mechanical Ventilator 100 04/01/20 05:17 18 Mechanical Ventilator 100 04/01/20 05:00 114/70 04/01/20 05:00 18 Mechanical Ventilator 100 04/01/20 05:00 18 114/70 Mechanical Ventilator 100 04/01/20 05:00 87 18 114/70 (85) 100 04/01/20 04:00 100 04/01/20 04:00 98.4 88 18 118/75 (89) 99 04/01/20 04:00 118/75 04/01/20 04:00 18 Mechanical Ventilator 100 04/01/20 04:00 18 118/75 Mechanical Ventilator 100 04/01/20 04:00 88 04/01/20 04:00 Mechanical Ventilator 04/01/20 03:15 90 18 100 04/01/20 03:00 89 18 120/72 (88) 100 04/01/20 03:00 120/72 04/01/20 03:00 18 Mechanical Ventilator 100 04/01/20 03:00 18 120/72 Mechanical Ventilator 100 04/01/20 02:50 18 115/70 Mechanical Ventilator 100 04/01/20 02:00 119/77 04/01/20 02:00 18 Mechanical Ventilator 100 04/01/20 02:00 18 119/77 Mechanical Ventilator 100 04/01/20 02:00 93 18 119/77 (91) 100 04/01/20 01:00 89 18 116/75 (89) 100 04/01/20 01:00 116/75 04/01/20 01:00 18 Mechanical Ventilator 100 04/01/20 01:00 18 116/75 Mechanical Ventilator 100 04/01/20 00:30 90 18 114/73 (87) 100 04/01/20 00:00 Mechanical Ventilator 04/01/20 00:00 118/74 04/01/20 00:00 18 Mechanical Ventilator 100 04/01/20 00:00 18 118/74 Mechanical Ventilator 100 04/01/20 00:00 99.5 95 18 118/74 (89) 100 04/01/20 00:00 95 04/01/20 00:00 100 03/31/20 23:30 99 24 131/102 (112) 98 03/31/20 23:24 98 18 100 03/31/20 23:00 110/76 03/31/20 23:00 18 Mechanical Ventilator 100 03/31/20 23:00 18 110/76 Mechanical Ventilator 100 03/31/20 23:00 99 18 110/76 (87) 100 03/31/20 22:00 117/74 03/31/20 22:00 18 Mechanical Ventilator 100 03/31/20 22:00 18 117/74 Mechanical Ventilator 100 03/31/20 22:00 96 18 117/74 (88) 100 03/31/20 21:30 99 18 103/76 (85) 100 03/31/20 21:00 105 18 107/74 (85) 100 03/31/20 21:00 107/74 03/31/20 21:00 18 Mechanical Ventilator 100 03/31/20 21:00 18 107/74 Mechanical Ventilator 100 03/31/20 20:45 111 18 116/80 (92) 99 03/31/20 20:38 100.5 03/31/20 20:30 116 18 121/45 (70) 98 03/31/20 20:15 111 18 124/80 (95) 100 03/31/20 20:12 129/89 03/31/20 20:00 100.8 111 18 129/89 (102) 100 03/31/20 20:00 118 03/31/20 20:00 Mechanical Ventilator 03/31/20 20:00 100 03/31/20 20:00 18 Mechanical Ventilator 100 03/31/20 20:00 18 129/89 Mechanical Ventilator 100 03/31/20 19:45 114 18 128/80 (96) 100 03/31/20 19:30 118 17 124/87 (99) 99 03/31/20 19:22 118 18 100 03/31/20 19:02 18 Mechanical Ventilator 100 03/31/20 19:00 115 18 139/96 (110) 99 03/31/20 19:00 18 133/88 Mechanical Ventilator 100 03/31/20 18:45 113 18 142/93 (109) 99 03/31/20 18:30 109 13 144/97 (113) 99 03/31/20 18:15 106 18 133/83 (100) 100 03/31/20 18:00 106 18 137/90 (106) 99 03/31/20 18:00 18 133/83 Mechanical Ventilator 100 03/31/20 17:45 108 18 136/86 (103) 99 03/31/20 17:42 18 140/83 Mechanical Ventilator 100 03/31/20 17:30 104 18 140/83 (102) 99 03/31/20 17:15 106 18 136/79 (98) 98 03/31/20 17:00 18 136/79 Mechanical Ventilator 100 03/31/20 17:00 107 18 125/77 (93) 98 03/31/20 16:45 105 18 119/80 (93) 98 03/31/20 16:30 106 18 129/81 (97) 99 03/31/20 16:15 105 18 118/81 (93) 99 03/31/20 16:00 Mechanical Ventilator 03/31/20 16:00 100 03/31/20 16:00 18 118/81 Mechanical Ventilator 100 03/31/20 16:00 105 03/31/20 16:00 98.9 103 18 110/76 (87) 100 03/31/20 15:45 103 18 113/71 (85) 100 03/31/20 15:30 103 18 117/69 (85) 100 03/31/20 15:15 99 18 122/76 (91) 100 03/31/20 15:10 106 17 100 03/31/20 15:00 99 18 113/69 (84) 100 03/31/20 15:00 18 118/81 Mechanical Ventilator 100 03/31/20 14:45 101 18 108/71 (83) 100 03/31/20 14:30 103 18 104/65 (78) 100 03/31/20 14:15 102 18 97/67 (77) 100 03/31/20 14:00 18 Mechanical Ventilator 100 03/31/20 14:00 18 97/67 Mechanical Ventilator 100 03/31/20 14:00 104 18 97/63 (74) 100 03/31/20 13:45 104 18 102/66 (78) 100 03/31/20 13:30 105 18 100/63 (75) 100 03/31/20 13:15 108 18 101/68 (79) 100 03/31/20 13:00 18 Mechanical Ventilator 100 03/31/20 13:00 18 101/68 Mechanical Ventilator 100 03/31/20 13:00 111 18 100/63 (75) 100 03/31/20 12:51 98.5 03/31/20 12:45 110 18 97/63 (74) 100 03/31/20 12:30 112 18 93/65 (74) 100 Intake and Output 03/31/20 04/01/20 19:00 07:00 Intake Total 1291.75 ml 1637.5 ml Output Total 1425 ml 1420 ml Balance -133.25 ml 217.5 ml Free Water 160 ml IV Total 811.75 ml 837.5 ml Tube Feeding 480 ml 480 ml Other 160 ml Output Urine Total 1425 ml 1120 ml Stool Total 300 ml # Bowel Movements 4 General Appearance: WD/WN, no acute distress HEENT: normocephalic, atraumatic Respiratory: chest wall non-tender Cardiovascular: normal rate, regular rhythm Abdomen: normal bowel sounds, soft, non tender, other - obese Microbiology Date/Time Source Procedure Growth Status 03/29/20 18:57 Indwelling Cath Urine Culture - Final NO GROWTH AFTER 48 HOURS Complete 03/29/20 18:57 Sputum Gram Stain - Final Complete 03/29/20 18:57 Sputum Culture - Final Kat Albicans Usual Upper Respiratory Hillary Complete 03/29/20 18:57 Nasopharynx Coronavirus COVID-19 PCR ([facility]) - Final Complete 03/29/20 15:10 Blood Blood Culture - Preliminary NO GROWTH AFTER 48 HOURS Resulted 03/29/20 14:50 Blood Blood Culture - Preliminary YEAST Resulted Laboratory Tests 03/31/20 18:18: POC Whole Blood Glucose 189H 03/31/20 23:10: POC Whole Blood Glucose 168H 04/01/20 03:35: White Blood Count 9.8, Red Blood Count 3.61L, Hemoglobin 10.4L, Hematocrit 31.6L , Mean Corpuscular Volume 88, Mean Corpuscular Hemoglobin 28.8, Mean Corpuscular Hemoglobin Concent 32.9, Red Cell Distribution Width 14.8, Platelet Count 208, Mean Platelet Volume 5.8L, Neutrophils (%) (Auto) , Lymphocytes (%) (Auto) , Monocytes (%) (Auto) , Eosinophils (%) (Auto) , Basophils (%) (Auto) , Differential Total Cells Counted 100, Neutrophils % (Manual) 92H, Lymphocytes % (Manual) 4L, Monocytes % (Manual) 4, Eosinophils % (Manual) 0, Basophils % (Manual) 0, Band Neutrophils 0, Platelet Estimate Adequate, Platelet Morphology Normal, Polychromasia Occasional, Hypochromasia 1+, Anisocytosis 1+, Sodium Level 145, Potassium Level 3.7, Chloride Level 108H, Carbon Dioxide Level 34H, Anion Gap 4L, Blood Urea Nitrogen 36H, Creatinine 0.7, Estimat Glomerular Filtration Rate > 60, Glucose Level 166H, Calcium Level 7.8L, Phosphorus Level 2.9, Magnesium Level 2.1, Total Bilirubin 0.5, Gamma Glutamyl Transpeptidase 149H, Aspartate Amino Transf (AST/SGOT) 36, Alanine Aminotransferase (ALT/SGPT) 152H, Alkaline Phosphatase 202H, Lactate Dehydrogenase 396H, C-Reactive Protein, Quantitative 1.1H, Pro-B-Type Natriuretic Peptide 861H, Total Protein 5.4L, Albumin 2.1L, Globulin 3.3, Albumin/Globulin Ratio 0.6L 04/01/20 05:28: POC Whole Blood Glucose 173H 04/01/20 07:29: Arterial Blood pH 7.370, Arterial Blood Partial Pressure CO2 56.1*H, Arterial Blood Partial Pressure O2 74.2L, Arterial Blood HCO3 31.7H, Arterial Blood Oxy gen Saturation 94.3L, Arterial Blood Base Excess 5.2H, Shemar Test Positive 04/01/20 11:21: POC Whole Blood Glucose 172H Current Medications Medications (Trade) Dose Ordered Sig/Dennis Route PRN Reason Start Time Stop Time Status Last Admin Dose Admin Acetaminophen (Tylenol) 650 mg Q4H PRN ORAL Mild Pain (Pain Scale 1-3) 03/09/20 12:00 04/08/20 11:59 03/31/20 20:08 Bisacodyl (Dulcolax) 10 mg HSPRN PRN RECTAL Constipation 02/05/20 13:15 05/05/20 13:14 Bisacodyl (Dulcolax) 10 mg Q12H PRN RECTAL Constipation 03/18/20 16:45 06/16/20 16:44 Chlorhexidine Gluconate (Marlen-Hex 2%) 1 applic DAILY@1999 TOPIC 03/30/20 20:00 06/28/20 19:59 03/31/20 19:29 Dextrose (Dextrose 50%) 25 ml Q30M PRN IV Hypoglycemia 03/29/20 20:45 06/27/20 20:44 Dextrose (Dextrose 50%) 50 ml Q30M PRN IV Hypoglycemia 03/29/20 20:45 06/27/20 20:44 Enoxaparin Sodium (Lovenox) 40 mg DAILY SUBQ 03/13/20 12:00 06/11/20 11:59 04/01/20 08:58 Fentanyl Citrate 250 ml @ 1 mls/hr Q24H IV 03/30/20 19:50 04/04/20 19:30 04/01/20 11:26 Furosemide (Lasix) 20 mg EVERY 8 HOURS IV 03/30/20 14:00 04/18/20 13:59 04/01/20 05:20 Hydralazine HCl (Apresoline) 10 mg Q4H PRN IV For High Blood Pressure 03/30/20 12:15 06/28/20 12:14 03/31/20 06:13 Insulin Aspart (NovoLOG) Q6HR SUBQ 03/30/20 00:00 06/28/20 00:00 04/01/20 11:22 Labetalol HCl (Normodyne) 10 mg Q4H PRN IV sbp greater tahtn 160 03/28/20 17:30 04/27/20 17:29 Lactulose (Cephulac) 20 gm THREE TIMES A DAY ORAL 03/08/20 13:00 04/07/20 12:59 04/01/20 08:58 Meropenem 1 gm/ Sodium Chloride 100 ml @ 200 mls/hr Q8HR IVPB 03/29/20 15:00 04/03/20 14:59 04/01/20 05:21 Methylprednisolone Sodium Succinate (Solu-MEDROL) 40 mg EVERY 8 HOURS IVP 03/22/20 14:00 06/20/20 13:59 04/01/20 05:21 Metoclopramide HCl (Reglan) 10 mg Q6H IVP 03/30/20 15:00 04/29/20 14:59 04/01/20 08:58 Micafungin Sodium 100 mg/Sodium Chloride 100 ml @ 100 mls/hr Q24H IVPB 03/29/20 15:00 04/05/20 14:59 03/31/20 14:30 Midazolam HCl 100 ml @ 0 mls/hr Q24H PRN IV Agitation 03/31/20 10:03 04/02/20 10:02 04/01/20 05:17 Norepinephrine Bitartrate 4 mg/ Sodium Chloride 250 ml @ 0 mls/hr Q24H PRN IV For hypotension 03/31/20 19:30 04/03/20 19:29 03/31/20 20:12 Pantoprazole (Protonix) 40 mg EVERY 12 HOURS IVP 04/01/20 21:00 05/01/20 20:59 Polyethylene Glycol (Miralax) 17 gm BEDTIME ORAL 03/08/20 21:00 04/07/20 20:59 03/31/20 20:08 Trimethoprim/ Sulfamethoxazole (Bactrim-DS) 1 tab Q24H ORAL 03/29/20 17:00 04/05/20 16:59 03/31/20 17:28 Vitamin D (Vitamin D) 5,000 unit DAILY ORAL 03/15/20 09:00 04/14/20 08:59 04/01/20 08:59 Assessment/Plan Assessment/Plan Assessment/Plan 1.COVID-19 pneumonia. - Completed specific therapies - On solumedrol 2. DVT ppx - on lovenox 3. Hypertension - no longer on meds - May need pressors 4. Leukocytosis; - ID following - On abx - Budding yeast on blood CS 5. Elevated LFT - positive Hep C; treated in the past with IF 6. Respiratory failure -Intubated 03/28/20 -Family aware - Prognosis grave - Increased Vt to 750; rate to 18 -On Fentanyl 7. Discussed with cardiology -No evidence for cardiac dysfunction or PE -tachycardic; will increase sedation 8. AMS -Has had a change in mental status No longer responsive Seems to have conjugate gaze to right -Will consult neurology Will request line holiday Start peripheral line John Mata MD Apr 01, 2020 12:24
--- NOTE | 2020-04-01 13:39 | Nephrology Progress Note ---
Assessment/Plan Problem List: (1) Dehydration (2) Electrolyte imbalance (3) COVID-19 virus infection (4) Pneumonia (5) DMII (diabetes mellitus, type 2) (6) Protein malnutrition Assessment Azotemia, hypernatremia Hypoalbuminemia Staff Otilia bacteremia COVID-19 isolation, pneumonia, bilateral infiltrate Hypertension Diabetes mellitus History of smoking Plan April 01: Full code. Remains on ventilator. Labs reviewed. Stable from renal standpoint of view. Continue per consultants. March 31: Full code . Remains intubated on ventilator. Labs reviewed. Patient appears toxic. Discussed with RN. Maintenance IV discontinued. Medication list reviewed. Blood pressure medication stopped due to low blood pressure. Levemir insulin stopped. Continue monitor blood sugar and sliding scale insulin. March 30: Full code. On ventilator. Labs reviewed. Clonidine patch dose increased. Lasix increased. 3% saline 1 time ordered. Continue to monitor electrolytes and renal parameters. March 29: Remains full code. On mechanical ventilation. On tube feeding. Will DC TPN. Will start on maintenance IV fluid. Continue to monitor renal parameters. March 28: On BiPAP. Full code. On TPN. Labs reviewed. Discussed with pharmacy. Continue as is. Watch serum potassium. March 27: Remains on BiPAP. No chemistry panel done today. Full code. On TPN. Will check lab tomorrow. March 26: Remains on BiPAP. Remains on TPN. Labs reviewed. Electrolytes and chemistries within normal limits. Continue as is. March 25: Remains on TPN. Labs reviewed. Discussed with pharmacy. Change IV Protonix to p.o. Continue 3% saline infusion with Lasix. Patient full code. March 24: Continue to be on TPN. Labs are reviewed. Aim to collect electrolytes. Discussed with pharmacy. Continue current consultants. March 23: Continues to be on TPN. Labs reviewed. Electrolytes and chemistries all acceptable. Discussed with pharmacy. Continue current management. March 22: On TPN. Labs reviewed. Low sodium noted. 3% saline to be continued. Continue to monitor electrolytes. Discussed with pharmacy. March 21: On TPN. Labs reviewed. Continue 3% saline and Lasix for mild hyponatremia. Continue TPN as these. Discussed with pharmacy. March 20: Remains on TPN. Labs reviewed. Serum sodium higher on IV Lasix and 3% saline infusion. Continue TPN as is. Continue to monitor renal parameters and electrolytes. Discussed with Dr. Mata March 19: Remains on TPN. Labs reviewed. Serum sodium 128. Will give 3% saline with IV Lasix. Continue to monitor electrolytes. No change in TPN composition. Discussed with pharmacy. March 18: Remains on TPN. Labs reviewed. Discussed with pharmacist. Will give 3 doses of IV Lasix 20 mg every 8 hours. Continue to monitor serum sodium electrolytes uric acid. White blood cells down. Continue per consultants. March 17: On TPN. Labs reviewed. Discussed with pharmacist. Sodium content increase. Continue to monitor CMP. Patient continues to have leukocytosis. March 16: On TPN. Labs reviewed. Discussed with pharmacist. Appropriate changes made. Continue to monitor electrolytes. March 15: Remains on TPN. Labs reviewed. Discussed with pharmacist. Continue per current management. March 14: Remains on TPN. Labs reviewed, stable. Vitamin D level low, replacement ordered. Continue to monitor electrolytes and renal parameters. March 13: Patient remains on TPN. Discussed with pharmacist. TPN's sodium content adjusted. Labs reviewed. Continue to monitor electrolytes. Blood pressure remains stable. Continue per consultants. March 12: Patient on TPN. Labs reviewed. CPK remains elevated. Abnormal electrolytes and high blood sugar discussed with pharmacist and TPN adjusted. Continue to monitor labs. Oral Protonix added. Ibuprofen discontinued. Can continue to monitor electrolytes and chemistries. Levemir for high blood sugar added. March 11: Patient on TPN. Labs as of 11:15 AM is still pending. Continue per current treatment plan. Will check labs and adjust TPN as needed. Continue per consultants. March 10: Patient on TPN. Labs reviewed. Electrolytes overall stable. CPK is elevated. Will monitor electrolyte, CPK level, lipid panel. Continue per consultants. Discussed with pharmacist. Discussed with RN. Nutritional evaluation noted. Previously: D5W 100 cc an hour Monitor electrolytes renal parameters TPN and Intralipid ordered Will follow Continue per consultants Dietary consult requested Subjective ROS Limited/Unobtainable: Yes Objective Objective Last 24 Hour Vital Signs Date Time Temp Pulse Resp B/P (MAP) Pulse Ox O2 Delivery O2 Flow Rate FiO2 04/01/20 13:25 109/69 04/01/20 13:07 98.9 80 18 109/69 (82) 98 04/01/20 13:00 109/69 04/01/20 13:00 18 Mechanical Ventilator 80 04/01/20 13:00 18 109/69 Mechanical Ventilator 80 04/01/20 12:08 98.9 82 18 111/72 (85) 96 04/01/20 12:08 80 04/01/20 12:00 Mechanical Ventilator 04/01/20 12:00 112/73 04/01/20 12:00 18 Mechanical Ventilator 80 04/01/20 12:00 18 112/73 Mechanical Ventilator 80 04/01/20 12:00 77 04/01/20 11:26 18 112/74 Mechanical Ventilator 80 04/01/20 11:24 78 18 70 04/01/20 11:00 115/73 04/01/20 11:00 18 Mechanical Ventilator 80 04/01/20 11:00 18 115/73 Mechanical Ventilator 80 04/01/20 11:00 81 18 114/72 (86) 98 04/01/20 10:07 82 18 122/78 (93) 98 04/01/20 10:00 122/78 04/01/20 10:00 18 Mechanical Ventilator 80 04/01/20 10:00 18 122/78 Mechanical Ventilator 80 04/01/20 09:14 76 18 70 04/01/20 09:00 87 18 123/80 (94) 98 04/01/20 09:00 123/80 04/01/20 09:00 18 Mechanical Ventilator 80 04/01/20 09:00 18 123/80 Mechanical Ventilator 80 04/01/20 08:00 80 04/01/20 08:00 94 04/01/20 08:00 117/74 04/01/20 08:00 18 Mechanical Ventilator 80 04/01/20 08:00 18 118/74 Mechanical Ventilator 80 04/01/20 08:00 Mechanical Ventilator 04/01/20 08:00 99.4 89 18 118/74 (89) 97 04/01/20 07:23 88 18 80 04/01/20 07:00 89 18 117/77 (90) 99 04/01/20 07:00 117/77 04/01/20 07:00 18 Mechanical Ventilator 100 04/01/20 07:00 18 117/77 Mechanical Ventilator 100 04/01/20 06:00 93 18 135/78 (97) 100 04/01/20 06:00 135/78 04/01/20 06:00 18 Mechanical Ventilator 100 04/01/20 06:00 18 135/78 Mechanical Ventilator 100 04/01/20 05:17 18 Mechanical Ventilator 100 04/01/20 05:00 114/70 04/01/20 05:00 18 Mechanical Ventilator 100 04/01/20 05:00 18 114/70 Mechanical Ventilator 100 04/01/20 05:00 87 18 114/70 (85) 100 04/01/20 04:00 100 04/01/20 04:00 98.4 88 18 118/75 (89) 99 04/01/20 04:00 118/75 04/01/20 04:00 18 Mechanical Ventilator 100 04/01/20 04:00 18 118/75 Mechanical Ventilator 100 04/01/20 04:00 88 04/01/20 04:00 Mechanical Ventilator 04/01/20 03:15 90 18 100 04/01/20 03:00 89 18 120/72 (88) 100 04/01/20 03:00 120/72 04/01/20 03:00 18 Mechanical Ventilator 100 04/01/20 03:00 18 120/72 Mechanical Ventilator 100 04/01/20 02:50 18 115/70 Mechanical Ventilator 100 04/01/20 02:00 119/77 04/01/20 02:00 18 Mechanical Ventilator 100 04/01/20 02:00 18 119/77 Mechanical Ventilator 100 04/01/20 02:00 93 18 119/77 (91) 100 04/01/20 01:00 89 18 116/75 (89) 100 04/01/20 01:00 116/75 04/01/20 01:00 18 Mechanical Ventilator 100 04/01/20 01:00 18 116/75 Mechanical Ventilator 100 04/01/20 00:30 90 18 114/73 (87) 100 04/01/20 00:00 Mechanical Ventilator 04/01/20 00:00 118/74 04/01/20 00:00 18 Mechanical Ventilator 100 04/01/20 00:00 18 118/74 Mechanical Ventilator 100 04/01/20 00:00 99.5 95 18 118/74 (89) 100 04/01/20 00:00 95 04/01/20 00:00 100 03/31/20 23:30 99 24 131/102 (112) 98 03/31/20 23:24 98 18 100 03/31/20 23:00 110/76 03/31/20 23:00 18 Mechanical Ventilator 100 03/31/20 23:00 18 110/76 Mechanical Ventilator 100 03/31/20 23:00 99 18 110/76 (87) 100 03/31/20 22:00 117/74 03/31/20 22:00 18 Mechanical Ventilator 100 03/31/20 22:00 18 117/74 Mechanical Ventilator 100 03/31/20 22:00 96 18 117/74 (88) 100 03/31/20 21:30 99 18 103/76 (85) 100 03/31/20 21:00 105 18 107/74 (85) 100 03/31/20 21:00 107/74 03/31/20 21:00 18 Mechanical Ventilator 100 03/31/20 21:00 18 107/74 Mechanical Ventilator 100 03/31/20 20:45 111 18 116/80 (92) 99 03/31/20 20:38 100.5 03/31/20 20:30 116 18 121/45 (70) 98 03/31/20 20:15 111 18 124/80 (95) 100 03/31/20 20:12 129/89 03/31/20 20:00 100.8 111 18 129/89 (102) 100 03/31/20 20:00 118 03/31/20 20:00 Mechanical Ventilator 03/31/20 20:00 100 03/31/20 20:00 18 Mechanical Ventilator 100 03/31/20 20:00 18 129/89 Mechanical Ventilator 100 03/31/20 19:45 114 18 128/80 (96) 100 03/31/20 19:30 118 17 124/87 (99) 99 03/31/20 19:22 118 18 100 03/31/20 19:02 18 Mechanical Ventilator 100 03/31/20 19:00 115 18 139/96 (110) 99 03/31/20 19:00 18 133/88 Mechanical Ventilator 100 03/31/20 18:45 113 18 142/93 (109) 99 03/31/20 18:30 109 13 144/97 (113) 99 03/31/20 18:15 106 18 133/83 (100) 100 03/31/20 18:00 106 18 137/90 (106) 99 03/31/20 18:00 18 133/83 Mechanical Ventilator 100 03/31/20 17:45 108 18 136/86 (103) 99 03/31/20 17:42 18 140/83 Mechanical Ventilator 100 03/31/20 17:30 104 18 140/83 (102) 99 03/31/20 17:15 106 18 136/79 (98) 98 03/31/20 17:00 18 136/79 Mechanical Ventilator 100 03/31/20 17:00 107 18 125/77 (93) 98 03/31/20 16:45 105 18 119/80 (93) 98 03/31/20 16:30 106 18 129/81 (97) 99 03/31/20 16:15 105 18 118/81 (93) 99 03/31/20 16:00 Mechanical Ventilator 03/31/20 16:00 100 03/31/20 16:00 18 118/81 Mechanical Ventilator 100 03/31/20 16:00 105 03/31/20 16:00 98.9 103 18 110/76 (87) 100 03/31/20 15:45 103 18 113/71 (85) 100 03/31/20 15:30 103 18 117/69 (85) 100 03/31/20 15:15 99 18 122/76 (91) 100 03/31/20 15:10 106 17 100 03/31/20 15:00 99 18 113/69 (84) 100 03/31/20 15:00 18 118/81 Mechanical Ventilator 100 03/31/20 14:45 101 18 108/71 (83) 100 03/31/20 14:30 103 18 104/65 (78) 100 03/31/20 14:15 102 18 97/67 (77) 100 03/31/20 14:00 18 Mechanical Ventilator 100 03/31/20 14:00 18 97/67 Mechanical Ventilator 100 03/31/20 14:00 104 18 97/63 (74) 100 03/31/20 13:45 104 18 102/66 (78) 100 Intake and Output 03/31/20 04/01/20 19:00 07:00 Intake Total 1291.75 ml 1637.5 ml Output Total 1425 ml 1420 ml Balance -133.25 ml 217.5 ml Free Water 160 ml IV Total 811.75 ml 837.5 ml Tube Feeding 480 ml 480 ml Other 160 ml Output Urine Total 1425 ml 1120 ml Stool Total 300 ml # Bowel Movements 4 Current Medications Medications (Trade) Dose Ordered Sig/Dennis Route PRN Reason Start Time Stop Time Status Last Admin Dose Admin Acetaminophen (Tylenol) 650 mg Q4H PRN ORAL Mild Pain (Pain Scale 1-3) 03/09/20 12:00 04/08/20 11:59 03/31/20 20:08 Bisacodyl (Dulcolax) 10 mg HSPRN PRN RECTAL Constipation 02/05/20 13:15 05/05/20 13:14 Bisacodyl (Dulcolax) 10 mg Q12H PRN RECTAL Constipation 03/18/20 16:45 06/16/20 16:44 Chlorhexidine Gluconate (Marlen-Hex 2%) 1 applic DAILY@2000 TOPIC 03/30/20 20:00 06/28/20 19:59 03/31/20 19:29 Dextrose (Dextrose 50%) 25 ml Q30M PRN IV Hypoglycemia 03/29/20 20:45 06/27/20 20:44 Dextrose (Dextrose 50%) 50 ml Q30M PRN IV Hypoglycemia 03/29/20 20:45 06/27/20 20:44 Enoxaparin Sodium (Lovenox) 40 mg DAILY SUBQ 03/13/20 12:00 06/11/20 11:59 04/01/20 08:58 Fentanyl Citrate 250 ml @ 1 mls/hr Q24H IV 03/30/20 19:50 04/04/20 19:30 04/01/20 11:26 Furosemide (Lasix) 20 mg EVERY 8 HOURS IV 03/30/20 14:00 04/18/20 13:59 04/01/20 13:26 Hydralazine HCl (Apresoline) 10 mg Q4H PRN IV For High Blood Pressure 03/30/20 12:15 06/28/20 12:14 03/31/20 06:13 Insulin Aspart (NovoLOG) Q6HR SUBQ 03/30/20 00:00 06/28/20 00:00 04/01/20 11:22 Labetalol HCl (Normodyne) 10 mg Q4H PRN IV sbp greater tahtn 160 03/28/20 17:30 04/27/20 17:29 Lactulose (Cephulac) 20 gm THREE TIMES A DAY ORAL 03/08/20 13:00 04/07/20 12:59 04/01/20 13:26 Meropenem 1 gm/ Sodium Chloride 100 ml @ 200 mls/hr Q8HR IVPB 03/29/20 15:00 04/03/20 14:59 04/01/20 13:30 Methylprednisolone Sodium Succinate (Solu-MEDROL) 40 mg EVERY 8 HOURS IVP 03/22/20 14:00 06/20/20 13:59 04/01/20 13:26 Metoclopramide HCl (Reglan) 10 mg Q6H IVP 03/30/20 15:00 04/29/20 14:59 04/01/20 08:58 Micafungin Sodium 100 mg/Sodium Chloride 100 ml @ 100 mls/hr Q24H IVPB 03/29/20 15:00 04/05/20 14:59 03/31/20 14:30 Midazolam HCl 100 ml @ 0 mls/hr Q24H PRN IV Agitation 03/31/20 10:03 04/02/20 10:02 04/01/20 05:17 Norepinephrine Bitartrate 4 mg/ Sodium Chloride 250 ml @ 0 mls/hr Q24H PRN IV For hypotension 03/31/20 19:30 04/03/20 19:29 04/01/20 13:25 Pantoprazole (Protonix) 40 mg EVERY 12 HOURS IVP 04/01/20 21:00 05/01/20 20:59 Polyethylene Glycol (Miralax) 17 gm BEDTIME ORAL 03/08/20 21:00 04/07/20 20:59 03/31/20 20:08 Trimethoprim/ Sulfamethoxazole (Bactrim-DS) 1 tab Q24H ORAL 03/29/20 17:00 04/05/20 16:59 03/31/20 17:28 Vitamin D (Vitamin D) 5,000 unit DAILY ORAL 03/15/20 09:00 04/14/20 08:59 04/01/20 08:59 Laboratory Tests 03/31/20 18:18: POC Whole Blood Glucose 189H 03/31/20 23:10: POC Whole Blood Glucose 168H 04/01/20 03:35: White Blood Count 9.8, Red Blood Count 3.61L, Hemoglobin 10.4L, Hematocrit 31.6L , Mean Corpuscular Volume 88, Mean Corpuscular Hemoglobin 28.8, Mean Corpuscular Hemoglobin Concent 32.9, Red Cell Distribution Width 14.8, Platelet Count 208, Mean Platelet Volume 5.8L, Neutrophils (%) (Auto) , Lymphocytes (%) (Auto) , Monocytes (%) (Auto) , Eosinophils (%) (Auto) , Basophils (%) (Auto) , Differential Total Cells Counted 100, Neutrophils % (Manual) 92H, Lymphocytes % (Manual) 4L, Monocytes % (Manual) 4, Eosinophils % (Manual) 0, Basophils % (Manual) 0, Band Neutrophils 0, Platelet Estimate Adequate, Platelet Morphology Normal, Polychromasia Occasional, Hypochromasia 1+, Anisocytosis 1+, Sodium Level 145, Potassium Level 3.7, Chloride Level 108H, Carbon Dioxide Level 34H, Anion Gap 4L, Blood Urea Nitrogen 36H, Creatinine 0.7, Estimat Glomerular Filtration Rate > 60, Glucose Level 166H, Calcium Level 7.8L, Phosphorus Level 2.9, Magnesium Level 2.1, Total Bilirubin 0.5, Gamma Glutamyl Transpeptidase 149H, Aspartate Amino Transf (AST/SGOT) 36, Alanine Aminotransferase (ALT/SGPT) 152H, Alkaline Phosphatase 202H, Lactate Dehydrogenase 396H, C-Reactive Protein, Quantitative 1.1H, Pro-B-Type Natriuretic Peptide 861H, Total Protein 5.4L, Albumin 2.1L, Globulin 3.3, Albumin/Globulin Ratio 0.6L 04/01/20 05:28: POC Whole Blood Glucose 173H 04/01/20 07:29: Arterial Blood pH 7.370, Arterial Blood Partial Pressure CO2 56.1*H, Arterial Blood Partial Pressure O2 74.2L, Arterial Blood HCO3 31.7H, Arterial Blood Oxygen Saturation 94.3L, Arterial Blood Base Excess 5.2H, Shemar Test Positive 04/01/20 11:21: POC Whole Blood Glucose 172H Height (Feet): 5 Height (Inches): 10.00 Weight (Pounds): 240 General Appearance: no apparent distress EENT: other - Intubated on ventilator Cardiovascular: normal rate Respiratory/Chest: decreased breath sounds Abdomen: distended Rubin Cooper MD Apr 01, 2020 13:39
--- NOTE | 2020-04-01 14:00 | NUR ---
NURSE NOTES: PIV insertion done to LT hand thumb with NO 22 G angiocath x 1 attempt,lt hand edematous ,elevated on a pillow.
--- NOTE | 2020-04-01 14:01 | NUR ---
INSURANCE CLINCALS FAXED TO [employer] T: [phone] #1 F: [phone] AND ALFRED QUARTZ ORIENTATOR:JACQUELINE JAMES [phone] F: [phone]
--- NOTE | 2020-04-01 16:00 | NUR ---
NURSE NOTES: bed bath given,no more fever noted,pulled up turned and repositioned.
[2020-04-01] MEDS: Bactrim-DS 1 tab ORAL SCH (17:37)
--- NOTE | 2020-04-01 18:01 | NUR ---
NURSE NOTES: Oral care done,ETT suctioning done PRN.no resp distress presented during the shift,pt stable.
--- NOTE | 2020-04-01 19:15 | NUR ---
NURSE HAND-OFF REPORT: Latest Vital Signs: Temperature 98.5 , Pulse 75 , B/P 114 /67 , Respiratory Rate 18 , O2 SAT 97 , Mechanical Ventilator, O2 Flow Rate . Vital Sign Comment: stable EKG Rhythm: Sinus Rhythm Rhythm change?: N MD Notified?: N- MD Response: Message left await call Latest Hassan Fall Score: 45 Fall Risk: High Risk Safety Measures: Call light Within Reach, Bed Alarm Zone 1, Side Rails Side Rails x3, Bed position Low and Locked. Fall Precautions: Yellow Socks Door Sign Patient Fall Education Report given to .Jose Rafael Bajwa RN.
[2020-04-01] MEDS: Dyna-Hex 2% Top Sol 2oz TOPIC SCH (19:29)
--- NOTE | 2020-04-01 19:40 | NUR ---
NURSE NOTES: PATIENT SEDATED, ON ETT TO VENT, AC 18/TV750/FIO2 100%/PEEP8, O2 SATURATION 96% NOTED, OGT INTACT AND PATENT, ONGOING GLUCERNA 1.5 AT 40ML/HR, RESIDUE 40ML NOTED, KEPT HOB 30 DEGREES AND ASPIRATION PRECAUTION, ABDOMEN SOFT, NON TENDER, RECTAL TUBE INTACT AND PATENT, F/C INTACT AND PATENT, NAYELI COLOR URINE OUTED, PICC LINE TO LEFT UPPER ARM AND PPL TO LEFT HAND, INTACT AND PATENT, ONGOING FENTANYL 300MCG/HR, VERSED 5MG/HR AND LEVOPHED 4MCG/MIN STATUS, KEPT RASS SCORE -2, 2 POINT SOFT RESTRAINTS STATUS, MADE LOWER BED POSITION, ON BED ALARM AND LOCKED, SMALL COOLING BLANKET STATUS, WILL CONTINUE TO MONITOR. Addendum: 04/01/20 at 2054 by ROSI TAN RN NURSE NOTES: PATIENT SEDATED, ON ETT TO VENT, AC 18/TV750/FIO2 70%/PEEP8, O2 SATURATION 96% NOTED, OGT INTACT AND PATENT, ONGOING GLUCERNA 1.5 AT 40ML/HR, RESIDUE 40ML NOTED, KEPT HOB 30 DEGREES AND ASPIRATION PRECAUTION, ABDOMEN SOFT, NON TENDER, RECTAL TUBE INTACT AND PATENT, F/C INTACT AND PATENT, NAYELI COLOR URINE OUTED, PICC LINE TO LEFT UPPER ARM AND PPL TO LEFT HAND, INTACT AND PATENT, ONGOING FENTANYL 300MCG/HR, VERSED 5MG/HR AND LEVOPHED 4MCG/MIN STATUS, KEPT RASS SCORE -2, 2 POINT SOFT RESTRAINTS STATUS, MADE LOWER BED POSITION, ON BED ALARM AND LOCKED, SMALL COOLING BLANKET STATUS, WILL CONTINUE TO MONITOR.
[2020-04-01] MEDS: Pantoprazole Inj IVP SCH (20:22)
[2020-04-01] MEDS: Miralax 17gm pkt ORAL SCH (20:22)
--- NOTE | 2020-04-01 20:36 | General Progress Note ---
Subjective Allergies: Coded Allergies: No Known Allergies (Unverified , 02/05/20) Subjective above noted d/w RN tolerating TF (+) rectal tube for BM Objective Last 24 Hour Vital Signs Date Time Temp Pulse Resp B/P (MAP) Pulse Ox O2 Delivery O2 Flow Rate FiO2 04/01/20 20:00 76 04/01/20 19:30 18 117/68 Mechanical Ventilator 100 04/01/20 19:23 77 18 70 04/01/20 19:09 75 18 114/67 (83) 97 04/01/20 19:00 114/67 04/01/20 19:00 18 Mechanical Ventilator 80 04/01/20 19:00 18 114/67 Mechanical Ventilator 80 04/01/20 18:04 79 18 121/74 (90) 96 04/01/20 18:00 121/74 04/01/20 18:00 18 Mechanical Ventilator 80 04/01/20 18:00 18 121/74 Mechanical Ventilator 80 04/01/20 17:00 80 18 118/73 (88) 95 04/01/20 17:00 114/71 04/01/20 17:00 18 Mechanical Ventilator 80 04/01/20 17:00 18 114/71 Mechanical Ventilator 80 04/01/20 16:47 18 Mechanical Ventilator 80 04/01/20 16:40 101 18 70 04/01/20 16:00 Mechanical Ventilator 04/01/20 16:00 122/73 04/01/20 16:00 18 Mechanical Ventilator 80 04/01/20 16:00 18 122/73 Mechanical Ventilator 80 04/01/20 16:00 79 04/01/20 16:00 98.5 89 18 122/76 (91) 92 04/01/20 16:00 80 04/01/20 15:13 96 18 70 04/01/20 15:00 117/66 04/01/20 15:00 18 Mechanical Ventilator 80 04/01/20 15:00 18 117/66 Mechanical Ventilator 80 04/01/20 15:00 80 18 117/66 (83) 95 04/01/20 14:00 134/83 04/01/20 14:00 18 Mechanical Ventilator 80 04/01/20 14:00 18 136/80 Mechanical Ventilator 80 04/01/20 14:00 79 18 136/80 (98) 98 04/01/20 13:25 109/69 04/01/20 13:09 89 18 70 04/01/20 13:07 98.9 80 18 109/69 (82) 98 04/01/20 13:00 109/69 04/01/20 13:00 18 Mechanical Ventilator 80 04/01/20 13:00 18 109/69 Mechanical Ventilator 80 04/01/20 12:08 98.9 82 18 111/72 (85) 96 04/01/20 12:08 80 04/01/20 12:00 Mechanical Ventilator 04/01/20 12:00 112/73 04/01/20 12:00 18 Mechanical Ventilator 80 04/01/20 12:00 18 112/73 Mechanical Ventilator 80 04/01/20 12:00 77 04/01/20 11:26 18 112/74 Mechanical Ventilator 80 04/01/20 11:24 78 18 70 04/01/20 11:00 115/73 04/01/20 11:00 18 Mechanical Ventilator 80 04/01/20 11:00 18 115/73 Mechanical Ventilator 80 04/01/20 11:00 81 18 114/72 (86) 98 04/01/20 10:07 82 18 122/78 (93) 98 04/01/20 10:00 122/78 04/01/20 10:00 18 Mechanical Ventilator 80 04/01/20 10:00 18 122/78 Mechanical Ventilator 80 04/01/20 09:14 76 18 70 04/01/20 09:00 87 18 123/80 (94) 98 04/01/20 09:00 123/80 04/01/20 09:00 18 Mechanical Ventilator 80 04/01/20 09:00 18 123/80 Mechanical Ventilator 80 04/01/20 08:00 80 04/01/20 08:00 94 04/01/20 08:00 117/74 04/01/20 08:00 18 Mechanical Ventilator 80 04/01/20 08:00 18 118/74 Mechanical Ventilator 80 04/01/20 08:00 Mechanical Ventilator 04/01/20 08:00 99.4 89 18 118/74 (89) 97 04/01/20 07:23 88 18 80 04/01/20 07:00 89 18 117/77 (90) 99 04/01/20 07:00 117/77 04/01/20 07:00 18 Mechanical Ventilator 100 04/01/20 07:00 18 117/77 Mechanical Ventilator 100 04/01/20 06:00 93 18 135/78 (97) 100 04/01/20 06:00 135/78 04/01/20 06:00 18 Mechanical Ventilator 100 04/01/20 06:00 18 135/78 Mechanical Ventilator 100 04/01/20 05:17 18 Mechanical Ventilator 100 04/01/20 05:00 114/70 04/01/20 05:00 18 Mechanical Ventilator 100 04/01/20 05:00 18 114/70 Mechanical Ventilator 100 04/01/20 05:00 87 18 114/70 (85) 100 04/01/20 04:00 100 04/01/20 04:00 98.4 88 18 118/75 (89) 99 04/01/20 04:00 118/75 04/01/20 04:00 18 Mechanical Ventilator 100 04/01/20 04:00 18 118/75 Mechanical Ventilator 100 04/01/20 04:00 88 04/01/20 04:00 Mechanical Ventilator 04/01/20 03:15 90 18 100 04/01/20 03:00 89 18 120/72 (88) 100 04/01/20 03:00 120/72 04/01/20 03:00 18 Mechanical Ventilator 100 04/01/20 03:00 18 120/72 Mechanical Ventilator 100 04/01/20 02:50 18 115/70 Mechanical Ventilator 100 04/01/20 02:00 119/77 04/01/20 02:00 18 Mechanical Ventilator 100 04/01/20 02:00 18 119/77 Mechanical Ventilator 100 04/01/20 02:00 93 18 119/77 (91) 100 04/01/20 01:00 89 18 116/75 (89) 100 04/01/20 01:00 116/75 04/01/20 01:00 18 Mechanical Ventilator 100 04/01/20 01:00 18 116/75 Mechanical Ventilator 100 04/01/20 00:30 90 18 114/73 (87) 100 04/01/20 00:00 Mechanical Ventilator 04/01/20 00:00 118/74 04/01/20 00:00 18 Mechanical Ventilator 100 04/01/20 00:00 18 118/74 Mechanical Ventilator 100 04/01/20 00:00 99.5 95 18 118/74 (89) 100 04/01/20 00:00 95 04/01/20 00:00 100 03/31/20 23:30 99 24 131/102 (112) 98 03/31/20 23:24 98 18 100 03/31/20 23:00 110/76 03/31/20 23:00 18 Mechanical Ventilator 100 03/31/20 23:00 18 110/76 Mechanical Ventilator 100 03/31/20 23:00 99 18 110/76 (87) 100 03/31/20 22:00 117/74 03/31/20 22:00 18 Mechanical Ventilator 100 03/31/20 22:00 18 117/74 Mechanical Ventilator 100 03/31/20 22:00 96 18 117/74 (88) 100 03/31/20 21:30 99 18 103/76 (85) 100 03/31/20 21:00 105 18 107/74 (85) 100 03/31/20 21:00 107/74 03/31/20 21:00 18 Mechanical Ventilator 100 03/31/20 21:00 18 107/74 Mechanical Ventilator 100 03/31/20 20:45 111 18 116/80 (92) 99 03/31/20 20:38 100.5 03/31/20 20:30 116 18 121/45 (70) 98 Intake and Output 03/31/20 04/01/20 19:00 07:00 Intake Total 1291.75 ml 1637.5 ml Output Total 1425 ml 1420 ml Balance -133.25 ml 217.5 ml Free Water 160 ml IV Total 811.75 ml 837.5 ml Tube Feeding 480 ml 480 ml Other 160 ml Output Urine Total 1425 ml 1120 ml Stool Total 300 ml # Bowel Movements 4 Laboratory Tests 03/31/20 23:10: POC Whole Blood Glucose 168H 04/01/20 03:35: White Blood Count 9.8, Red Blood Count 3.61L, Hemoglobin 10.4L, Hematocrit 31.6L , Mean Corpuscular Volume 88, Mean Corpuscular Hemoglobin 28.8, Mean Corpuscular Hemoglobin Concent 32.9, Red Cell Distribution Width 14.8, Platelet Count 208, Mean Platelet Volume 5.8L, Neutrophils (%) (Auto) , Lymphocytes (%) (Auto) , Monocytes (%) (Auto) , Eosinophils (%) (Auto) , Basophils (%) (Auto) , Differential Total Cells Counted 100, Neutrophils % (Manual) 92H, Lymphocytes % (Manual) 4L, Monocytes % (Manual) 4, Eosinophils % (Manual) 0, Basophils % (Man ual) 0, Band Neutrophils 0, Platelet Estimate Adequate, Platelet Morphology Normal, Polychromasia Occasional, Hypochromasia 1+, Anisocytosis 1+, Sodium Level 145, Potassium Level 3.7, Chloride Level 108H, Carbon Dioxide Level 34H, Anion Gap 4L, Blood Urea Nitrogen 36H, Creatinine 0.7, Estimat Glomerular Filtration Rate > 60, Glucose Level 166H, Calcium Level 7.8L, Phosphorus Level 2.9, Magnesium Level 2.1, Total Bilirubin 0.5, Gamma Glutamyl Transpeptidase 149H, Aspartate Amino Transf (AST/SGOT) 36, Alanine Aminotransferase (ALT/SGPT) 152H, Alkaline Phosphatase 202H, Lactate Dehydrogenase 396H, C-Reactive Protein, Quantitative 1.1H, Pro-B-Type Natriuretic Peptide 861H, Total Protein 5.4L, Albumin 2.1L, Globulin 3.3, Albumin/Globulin Ratio 0.6L 04/01/20 05:28: POC Whole Blood Glucose 173H 04/01/20 07:29: Arterial Blood pH 7.370, Arterial Blood Partial Pressure CO2 56.1*H, Arterial Blood Partial Pressure O2 74.2L, Arterial Blood HCO3 31.7H, Arterial Blood Oxygen Saturation 94.3L, Arterial Blood Base Excess 5.2H, Shemar Test Positive 04/01/20 11:21: POC Whole Blood Glucose 172H Height (Feet): 5 Height (Inches): 10.00 Weight (Pounds): 240 Objective Patient seen in ICU on Vent (+) trach (+) OGT no distress exam limited due to COVID isolation Assessment/Plan Status: stable, progressing Assessment/Plan: Assessment: Dysphagia - TF dependent COVID PNA, Resp failure DM Abnormal LFT -- COVID and Hepatitis C Recommendations No new GI recs continue TF Kourtney Davila MD Apr 01, 2020 20:36
--- NOTE | 2020-04-01 21:54 | NUR ---
NURSE NOTES: BP 110/67MMHG WITH LEVOPHED 2MCG/MIN AT THIS TIME, WILL CONTINUE TO MONITOR.
[2020-04-02] VITALS (30 sets, daily range): BP systolic 92–123; BP diastolic 59–76
--- NOTE | 2020-04-02 00:05 | NUR ---
NURSE NOTES: PATIENT SEDATED WITH FENTANYL 300MCG/HR AND VERSED 5MG/HR, KEPT RASS SCORE -2, ORAL CARE WAS DONE, VSS, WILL CONTINUE PLAN OF CARE.
--- NOTE | 2020-04-02 02:33 | NUR ---
NURSE NOTES: VSS, NO ACUTE DISTRESS NOTED AT THIS TIME.
[2020-04-02] MEDS: Metoclopramide 10mg/2ml Inj IVP SCH ×4 (02:47→20:32)
[2020-04-02] MEDS: Versed 50mg/NS 100ml 100 ML IV PRN ×3 (02:48→22:28)
[2020-04-02] MEDS: fentaNYL 2500mcg/NS 250ml 250 ML IV SCH ×3 (03:51→21:19)
--- NOTE | 2020-04-02 04:20 | NUR ---
NURSE NOTES: MORNING CARE WAS DONE.
[2020-04-02] MEDS: Solu-MEDROL 40mg Inj IVP SCH ×3 (05:17→21:22)
[2020-04-02] MEDS: NovoLOG Insulin Flexpen SUBQ SCH ×4 (05:32→23:39)
--- NOTE | 2020-04-02 06:00 | NUR ---
NURSE NOTES: NOTED BP 110/65MMHG, HOLD LEVOPHED DRIP AT THIS TIME, WILL CONTINUE TO MONITOR.
[2020-04-02 06:33] LABS: HEMATOCRIT 31.9 % (42.0-52.0); HEMOGLOBIN 9.9 G/DL (14.2-18.0); MEAN CORPUSCULAR VOLUME 90 FL (80-99); PLATELET COUNT 217 K/UL (150-450); RED BLOOD COUNT 3.54 M/UL (4.70-6.10); RED CELL DISTRIBUTION WIDTH 15.2 % (11.6-14.8); WHITE BLOOD COUNT 7.9 K/UL (4.8-10.8)
[2020-04-02 07:10] LABS: ALANINE AMINOTRANSFERASE 118 U/L (12-78); ALBUMIN/GLOBULIN RATIO 0.6 (1.0-2.7); ALKALINE PHOSPHATASE 149 U/L (46-116); ANION GAP 3 mmol/L (5-15); ASPARTATE AMINO TRANSFERASE 23 U/L (15-37); BILIRUBIN,TOTAL 0.4 MG/DL (0.2-1.0); BLOOD UREA NITROGEN 39 mg/dL (7-18); CALCIUM 8.1 MG/DL (8.5-10.1); CARBON DIOXIDE 35 MMOL/L (21-32); CHLORIDE 112 MMOL/L (98-107); CREATININE 0.8 MG/DL (0.55-1.30); PHOSPHORUS 2.4 MG/DL (2.5-4.9); POTASSIUM 4.1 MMOL/L (3.5-5.1); SODIUM 150 MMOL/L (136-145)
--- NOTE | 2020-04-02 07:15 | NUR ---
NURSE HAND-OFF REPORT: Latest Vital Signs: Temperature 99.4 , Pulse 83 , B/P 110 /65 , Respiratory Rate 18 , O2 SAT 96 , Mechanical Ventilator, O2 Flow Rate . Vital Sign Comment: EKG Rhythm: Sinus Rhythm Rhythm change?: N Notified?: Courtney Paige MD Response: Message left await call Latest Hassan Fall Score: 45 Fall Risk: High Risk Safety Measures: Call light Within Reach, Bed Alarm Zone 1, Side Rails Side Rails x3, Bed position Low and Locked. Fall Precautions: Yellow Socks Door Sign Patient Fall Education Report given to PRIYANKA MANZO.
--- NOTE | 2020-04-02 08:00 | NUR ---
NURSE NOTES: Pt was assessed after receiving change of shift report from Jose Rafael RN. Sedated RASS score of -2 light sedation while on Fentanyl drip at 300mcg/hr and Versed drip at 5mg/hr. Opens eyes for 10 seconds. Orally intubated, ETT 7.5 at 26cm/lipline with settings AC18, VT750, Peep 8, FIO2 70% with O2Sat from 96-97%. Bilateral rales/rhonchi on auscultation. NSR on satellite project site monitor, HR 87. Levophed is currently on hold since 0600 this AM. Temp 99.3F axillary. OGT with Glucerna 1.5 is infusing at goal rate of 40ml/hour. Residual measured 60ml, and feeding is now placed on hold. Abdomen is large, round, soft, nontender to touch with active bowel sounds. Rectal tube is draining liquid brown stool. Brownlee catheter is draining dark yellow urine. Double lumen PICC line on left upper arm patent/intact with dry dressing, connected on sedative drips. Peripheral IV access present on left thumb #22G, TKO, patent/intact. Skin alterations including sacral discoloration and bilateral very dry/calloused feet/heels noted. Generalized edema noted on BUE. HOB at 30 degrees, bed locked/in lowest position, three side rails up. Will continue to monitor pt and follow plan of care per MD orders and protocol.
[2020-04-02] MEDS: Pantoprazole Inj IVP SCH ×2 (08:09→20:32)
[2020-04-02] MEDS: Lactulose 20gm/30ml UDC ORAL SCH ×3 (08:10→17:10)
[2020-04-02] MEDS: Vitamin D 1000 units Tab ORAL SCH (08:10)
[2020-04-02] MEDS: Enoxaparin 40mg Inj SUBQ SCH (08:11)
--- NOTE | 2020-04-02 08:27 | Diagnostic Imaging Report ---
EXAM: XR Chest, 1 View CLINICAL HISTORY: INFECT TECHNIQUE: Frontal view of the chest. COMPARISON: Chest x-rays dated 03/31/20 and 03/12/20. FINDINGS: Lungs: No significant change in bilateral prominent interstitial markings. The lungs are otherwise clear without focal consolidation. Pleural space: Unremarkable. The costophrenic angles are sharp. No visible pneumothorax. Heart: Unremarkable. No cardiomegaly. Mediastinum: Unremarkable. Bones/joints: Unremarkable. Tubes, lines and devices: Endotracheal tube tip 6.5 cm above the sunny. NG tube tip in the distal stomach. Telemetry leads overlie the thorax. IMPRESSION: No significant change in bilateral prominent interstitial markings.
--- NOTE | 2020-04-02 09:00 | NUR ---
NURSE NOTES: AM meds were administered. Oral care was done. Cooling measures in place, cold/compress on forehead to maintain body temps. Repositioned for comfort, bilateral off/heels. Chest xray was done at bedside.
--- NOTE | 2020-04-02 09:31 | Pulmonology Progress Note ---
Subjective ROS Limited/Unobtainable: Yes Interval Events: Intubated 03/28/20 Constitutional: Reports: fever, other - + vent, + pressors, sedated HEENT: Repors: no symptoms Respiratory: Reports: dry cough, shortness of breath Cardiovascular: Reports: no symptoms Gastrointestinal/Abdominal: Denies: nausea, vomiting Psychiatric: Reports: other - NA Skin: Denies: rash Musculoskeletal: Reports: other - NA Allergies: Coded Allergies: No Known Allergies (Unverified , 02/05/20) Objective Last 24 Hour Vital Signs Date Time Temp Pulse Resp B/P (MAP) Pulse Ox O2 Delivery O2 Flow Rate FiO2 04/02/20 08:31 101 18 95 Mechanical Ventilator 70 04/02/20 08:00 70 04/02/20 07:16 101 18 70 04/02/20 06:00 83 18 110/65 (80) 96 04/02/20 06:00 18 Mechanical Ventilator 70 04/02/20 06:00 18 110/65 Mechanical Ventilator 70 04/02/20 05:23 80 18 70 04/02/20 05:00 81 18 108/72 (84) 97 04/02/20 05:00 108/72 04/02/20 05:00 18 Mechanical Ventilator 70 04/02/20 05:00 18 108/72 Mechanical Ventilator 70 04/02/20 04:00 78 04/02/20 04:00 70 04/02/20 04:00 99.4 78 18 105/63 (77) 97 04/02/20 04:00 105/63 04/02/20 04:00 18 Mechanical Ventilator 70 04/02/20 04:00 18 105/63 Mechanical Ventilator 70 04/02/20 04:00 Mechanical Ventilator 04/02/20 03:51 18 103/67 Mechanical Ventilator 70 04/02/20 03:28 80 18 70 04/02/20 03:00 104/65 04/02/20 03:00 18 Mechanical Ventilator 70 04/02/20 03:00 18 104/65 Mechanical Ventilator 70 04/02/20 03:00 79 18 104/65 (78) 97 04/02/20 02:48 18 Mechanical Ventilator 70 04/02/20 02:00 81 18 108/67 (81) 97 04/02/20 02:00 108/67 04/02/20 02:00 18 Mechanical Ventilator 70 04/02/20 02:00 18 108/67 Mechanical Ventilator 70 04/02/20 01:24 85 18 70 04/02/20 01:00 85 18 109/65 (80) 96 04/02/20 01:00 109/65 04/02/20 01:00 18 Mechanical Ventilator 70 04/02/20 01:00 18 109/65 Mechanical Ventilator 70 04/02/20 00:00 91 04/02/20 00:00 70 04/02/20 00:00 Mechanical Ventilator 04/02/20 00:00 114/67 04/02/20 00:00 18 Mechanical Ventilator 70 04/02/20 00:00 18 114/67 Mechanical Ventilator 70 04/02/20 00:00 98.4 91 18 114/67 (83) 95 04/01/20 23:06 89 18 70 04/01/20 23:00 109/68 04/01/20 23:00 18 Mechanical Ventilator 70 04/01/20 23:00 18 109/68 Mechanical Ventilator 70 04/01/20 23:00 92 18 109/68 (82) 96 04/01/20 22:00 111/75 04/01/20 22:00 18 Mechanical Ventilator 70 04/01/20 22:00 18 111/75 Mechanical Ventilator 70 04/01/20 22:00 89 18 111/75 (87) 97 04/01/20 21:12 79 18 70 04/01/20 21:00 82 18 102/65 (77) 97 04/01/20 21:00 102/65 04/01/20 21:00 18 Mechanical Ventilator 70 04/01/20 21:00 18 102/65 Mechanical Ventilator 70 04/01/20 20:00 115/69 04/01/20 20:00 18 Mechanical Ventilator 70 04/01/20 20:00 18 115/69 Mechanical Ventilator 70 04/01/20 20:00 76 04/01/20 20:00 98.6 81 18 115/69 (84) 97 04/01/20 20:00 70 04/01/20 20:00 Mechanical Ventilator 04/01/20 19:30 18 117/68 Mechanical Ventilator 100 04/01/20 19:23 77 18 70 04/01/20 19:09 75 18 114/67 (83) 97 04/01/20 19:00 114/67 04/01/20 19:00 18 Mechanical Ventilator 80 04/01/20 19:00 18 114/67 Mechanical Ventilator 80 04/01/20 18:04 79 18 121/74 (90) 96 04/01/20 18:00 121/74 04/01/20 18:00 18 Mechanical Ventilator 80 04/01/20 18:00 18 121/74 Mechanical Ventilator 80 04/01/20 17:00 80 18 118/73 (88) 95 04/01/20 17:00 114/71 04/01/20 17:00 18 Mechanical Ventilator 80 04/01/20 17:00 18 114/71 Mechanical Ventilator 80 04/01/20 16:47 18 Mechanical Ventilator 80 04/01/20 16:40 101 18 70 04/01/20 16:00 Mechanical Ventilator 04/01/20 16:00 122/73 04/01/20 16:00 18 Mechanical Ventilator 80 04/01/20 16:00 18 122/73 Mechanical Ventilator 80 04/01/20 16:00 79 04/01/20 16:00 98.5 89 18 122/76 (91) 92 04/01/20 16:00 80 04/01/20 15:13 96 18 70 04/01/20 15:00 117/66 04/01/20 15:00 18 Mechanical Ventilator 80 04/01/20 15:00 18 117/66 Mechanical Ventilator 80 04/01/20 15:00 80 18 117/66 (83) 95 04/01/20 14:00 134/83 04/01/20 14:00 18 Mechanical Ventilator 80 04/01/20 14:00 18 136/80 Mechanical Ventilator 80 04/01/20 14:00 79 18 136/80 (98) 98 04/01/20 13:25 109/69 04/01/20 13:09 89 18 70 04/01/20 13:07 98.9 80 18 109/69 (82) 98 04/01/20 13:00 109/69 04/01/20 13:00 18 Mechanical Ventilator 80 04/01/20 13:00 18 109/69 Mechanical Ventilator 80 04/01/20 12:08 98.9 82 18 111/72 (85) 96 04/01/20 12:08 80 04/01/20 12:00 Mechanical Ventilator 04/01/20 12:00 112/73 04/01/20 12:00 18 Mechanical Ventilator 80 04/01/20 12:00 18 112/73 Mechanical Ventilator 80 04/01/20 12:00 77 04/01/20 11:26 18 112/74 Mechanical Ventilator 80 04/01/20 11:24 78 18 70 04/01/20 11:00 115/73 04/01/20 11:00 18 Mechanical Ventilator 80 04/01/20 11:00 18 115/73 Mechanical Ventilator 80 04/01/20 11:00 81 18 114/72 (86) 98 04/01/20 10:07 82 18 122/78 (93) 98 04/01/20 10:00 122/78 04/01/20 10:00 18 Mechanical Ventilator 80 04/01/20 10:00 18 122/78 Mechanical Ventilator 80 Intake and Output 04/01/20 04/02/20 19:00 07:00 Intake Total 1830 ml 1474.7 ml Output Total 1700 ml 1190 ml Balance 130 ml 284.7 ml Free Water 320 ml 260 ml IV Total 850 ml 714.7 ml Tube Feeding 480 ml 440 ml Other 180 ml 60 ml Output Urine Total 1500 ml 690 ml Stool Total 200 ml 500 ml General Appearance: WD/WN, no acute distress HEENT: normocephalic, atraumatic Respiratory: chest wall non-tender Cardiovascular: normal rate, regular rhythm Abdomen: normal bowel sounds, soft, non tender, other - obese Laboratory Tests 04/01/20 11:21: POC Whole Blood Glucose 172H 04/02/20 05:39: White Blood Count 7.9, Red Blood Count 3.54L, Hemoglobin 9.9L, Hematocrit 31.9L, Mean Corpuscular Volume 90, Mean Corpuscular Hemoglobin 27.9, Mean Corpuscular Hemoglobin Concent 31.0L, Red Cell Distribution Width 15.2H, Platelet Count 217, Mean Platelet Volume 6.2L, Neutrophils (%) (Auto) , Lymphocytes (%) (Auto) , Monocytes (%) (Auto) , Eosinophils (%) (Auto) , Basophils (%) (Auto) , Differential Total Cells Counted 100, Neutrophils % (Manual) 89H, Lymphocytes % (Manual) 9L, Monocytes % (Manual) 2, Eosinophils % (Manual) 0, Basophils % (Manual) 0, Band Neutrophils 0, Platelet Estimate Adequate, Platelet Morphology Normal, Anisocytosis 1+, Stomatocytes Occasional, Sodium Level 150H, Potassium Level 4.1, Chloride Level 112H, Carbon Dioxide Level 35H, Anion Gap 3L, Blood Urea Nitrogen 39H, Creatinine 0.8, Estimat Glomerular Filtration Rate > 60, Glucose Level 148H, Calcium Level 8.1L, Phosphorus Level 2.4L, Magnesium Level 2.3, Total Bilirubin 0.4, Aspartate Amino Transf (AST/SGOT) 23, Alanine Aminotransferase (ALT/SGPT) 118H, Alkaline Phosphatase 149H, C-Reactive Protein, Quantitative 0.6, Pro-B-Type Natriuretic Peptide 315H, Total Protein 5.2L, Albumin 2.0L, Globulin 3.2, Albumin/Globulin Ratio 0.6L Current Medications Medications (Trade) Dose Ordered Sig/Dennis Route PRN Reason Start Time Stop Time Status Last Admin Dose Admin Acetaminophen (Tylenol) 650 mg Q4H PRN ORAL Mild Pain (Pain Scale 1-3) 03/09/20 12:00 04/08/20 11:59 03/31/20 20:08 Bisacodyl (Dulcolax) 10 mg HSPRN PRN RECTAL Constipation 02/05/20 13:15 05/05/20 13:14 Bisacodyl (Dulcolax) 10 mg Q12H PRN RECTAL Constipation 03/18/20 16:45 06/16/20 16:44 Chlorhexidine Gluconate (Marlen-Hex 2%) 1 applic DAILY@2000 TOPIC 03/30/20 20:00 06/28/20 19:59 04/01/20 19:29 Dextrose (Dextrose 50%) 25 ml Q30M PRN IV Hypoglycemia 03/29/20 20:45 06/27/20 20:44 Dextrose (Dextrose 50%) 50 ml Q30M PRN IV Hypoglycemia 03/29/20 20:45 06/27/20 20:44 Enoxaparin Sodium (Lovenox) 40 mg DAILY SUBQ 03/13/20 12:00 06/11/20 11:59 04/02/20 08:11 Fentanyl Citrate 250 ml @ 1 mls/hr Q24H IV 03/30/20 19:50 04/04/20 19:30 04/02/20 03:51 Furosemide (Lasix) 20 mg EVERY 8 HOURS IV 03/30/20 14:00 04/18/20 13:59 04/02/20 05:17 Hydralazine HCl (Apresoline) 10 mg Q4H PRN IV For High Blood Pressure 03/30/20 12:15 06/28/20 12:14 03/31/20 06:13 Insulin Aspart (NovoLOG) Q6HR SUBQ 03/30/20 00:00 06/28/20 00:00 04/02/20 05:32 Labetalol HCl (Normodyne) 10 mg Q4H PRN IV sbp greater tahtn 160 03/28/20 17:30 04/27/20 17:29 Lactulose (Cephulac) 20 gm THREE TIMES A DAY ORAL 03/08/20 13:00 04/07/20 12:59 04/02/20 08:10 Meropenem 1 gm/ Sodium Chloride 100 ml @ 200 mls/hr Q8HR IVPB 03/29/20 15:00 04/03/20 14:59 04/02/20 05:17 Methylprednisolone Sodium Succinate (Solu-MEDROL) 40 mg EVERY 8 HOURS IVP 03/22/20 14:00 06/20/20 13:59 04/02/20 05:17 Metoclopramide HCl (Reglan) 10 mg Q6H IVP 03/30/20 15:00 04/29/20 14:59 04/02/20 08:10 Micafungin Sodium 100 mg/Sodium Chloride 100 ml @ 100 mls/hr Q24H IVPB 03/29/20 15:00 04/05/20 14:59 04/01/20 15:20 Midazolam HCl 100 ml @ 0 mls/hr Q24H PRN IV Agitation 03/31/20 10:03 04/02/20 10:02 04/02/20 02:48 Norepinephrine Bitartrate 4 mg/ Sodium Chloride 250 ml @ 0 mls/hr Q24H PRN IV For hypotension 03/31/20 19:30 04/03/20 19:29 04/01/20 13:25 Pantoprazole (Protonix) 40 mg EVERY 12 HOURS IVP 04/01/20 21:00 05/01/20 20:59 04/02/20 08:09 Polyethylene Glycol (Miralax) 17 gm BEDTIME ORAL 03/08/20 21:00 04/07/20 20:59 04/01/20 20:22 Trimethoprim/ Sulfamethoxazole (Bactrim-DS) 1 tab Q24H ORAL 03/29/20 17:00 04/05/20 16:59 04/01/20 17:37 Vitamin D (Vitamin D) 5,000 unit DAILY ORAL 03/15/20 09:00 04/14/20 08:59 04/02/20 08:10 Assessment/Plan Assessment/Plan 1.COVID-19 pneumonia with hypoxia - last COVID-19 test positive after two negative tests - CTA 02/05/2020 ground-glass and consolidating infiltrates in the dependent portions of both lower lobes and to lesser degree the upper lobes consistent with bilateral pneumonia. No evidence of pulmonary embolus. - CXR 02/17/2020 worsening bilateral infiltrates; Repeat CXR shows basilar linear densities - CT chest 02/18 shows Increased extensive patchy ground-glass opacities and densities throughout the lungs, suggestive of Covid 19 infection. - currently on BiPAP. Saturations 90%. - Mycoplasma pneumoniae IgG 273; M. pneumoniae IgM titer within normal limits - D-dimer 0.90; on full dose Lovenox -Discontinued Decadron, now on Solumedrol - s/p remdesivir - is net I/O negative -We will continue TPN He has had a progressive increase in LDH,-started on Bactrim due to concern about pneumocystis. - Looking unchanged today. - CXR 03/17 no significant change - CXR 03/22 no significant change - CXR 04/02 no significant change - Bronchoscopy (03/28) -> now intubated 2. Initial negative rapid COVID-19 gene assay.- however repeat COVID-19 test positive 3. Smoker. 4. DVT ppx - on lovenox 5. Hypertension - on hydralazine, - s/p norvasc 6. Blood culture positive for gram positive cocci staph aureus 02/06 - on Abx - CT abd/pelvis showed no abscess per ID - TTE/ FERNY held off due to COVID-19 status - repeat BCx negative for growth 03/17 7. Leukocytosis; resolved - ID following 8. Gram negative zack UTI - s/p rocephin per ID recs - s/p rocephin, cefepime per ID 9. Elevated LFT - positive Hep C now on lasix (03/19-) 6. Respiratory failure -Intubated 03/28/20 -Family aware - Prognosis grave - Increased Vt to 750; rate to 18 -On Fentanyl 7. Discussed with cardiology -No evidence for cardiac dysfunction or PE -tachycardic; will increase sedation 8. AMS -Has had a change in mental status No longer responsive Seems to have conjugate gaze to right -Will consult neurology Will request line holiday Ordered PICC line for tomorrow The care for this patient was discussed with my supervising physician Time spent for this case was approximately 31 minutes Edilson Marinelli Apr 02, 2020 09:31
--- NOTE | 2020-04-02 10:00 | NUR ---
NURSE NOTES: Edilson JAIME at nurse's station for rounds, and was updated on pt's current status, including AM lab results Fp=[phone]. Order received from Dr Mata for another PICC line placement tomorrow; order was processed. Versed Rx was renewed; drip continues at 5mg/hr to maintain -2 light sedation. VS remain stable.
--- NOTE | 2020-04-02 11:07 | Cardiology Progress Note ---
Assessment/Plan Assessment/Plan Acute covid 19 pneumonia hypoxemia infiltrate bilat bacteremia hypernatremia / hyponatremia mild abn lfts tachy post intubation fever hr is normal picc line to be removed as concern for infection no other access tryign to extablish per rn is sedated versed and fetanyl bp seems ok at the moment is off levo hypoxemia unlikely cardiac related off anticoagulation except for dvt ppx dose continue supportive care tube feeding echo reviewed last on 03/28 still shows normal lv function no valve pathology cxr from 03/31 noted no change still with bilat infiltrate again wbc improved previously has had higher diuretic to the point of hypernatremia to see if keeping dry would help his respiratory status but not successful he was on full dose heparin previously as well now on dvt ppx consider transfer to higher level although on high flow oxygen will be prohibitive at this time tele reviewed sinus remains critically is on lower fio2 high residual per rn d/w rn on diuretic but na increased again will leave to dr parekh to adjust the diuretic dose id addressing temp fio2 decreased to 70% remain 98% !! good sign not much pulm secretion covid pcr negative , however considering that it took 3 tests to finally initially identify his covid infection i am not sure if we can trust Subjective Subjective pt in covid 19 isolation intubated , responsive not communicative n the vent Objective Last 24 Hour Vital Signs Date Time Temp Pulse Resp B/P (MAP) Pulse Ox O2 Delivery O2 Flow Rate FiO2 04/02/20 10:00 88 18 107/68 (81) 97 04/02/20 10:00 18 Mechanical Ventilator 70 04/02/20 10:00 18 107/68 Mechanical Ventilator 70 04/02/20 09:00 100 18 115/74 (88) 96 04/02/20 09:00 18 Mechanical Ventilator 70 04/02/20 09:00 18 115/74 Mechanical Ventilator 70 04/02/20 08:31 101 18 95 Mechanical Ventilator 70 04/02/20 08:30 98 18 123/75 (91) 95 04/02/20 08:00 Mechanical Ventilator 04/02/20 08:00 97 04/02/20 08:00 18 Mechanical Ventilator 70 04/02/20 08:00 18 121/76 Mechanical Ventilator 70 04/02/20 08:00 70 04/02/20 08:00 99.3 95 18 121/76 (91) 95 04/02/20 07:30 94 18 111/70 (84) 95 04/02/20 07:16 101 18 70 04/02/20 07:00 18 Mechanical Ventilator 70 04/02/20 07:00 18 108/69 Mechanical Ventilator 70 04/02/20 07:00 95 18 108/69 (82) 95 04/02/20 06:00 83 18 110/65 (80) 96 04/02/20 06:00 18 Mechanical Ventilator 70 04/02/20 06:00 18 110/65 Mechanical Ventilator 70 04/02/20 05:23 80 18 70 04/02/20 05:00 81 18 108/72 (84) 97 04/02/20 05:00 108/72 04/02/20 05:00 18 Mechanical Ventilator 70 04/02/20 05:00 18 108/72 Mechanical Ventilator 70 04/02/20 04:00 78 04/02/20 04:00 70 04/02/20 04:00 99.4 78 18 105/63 (77) 97 04/02/20 04:00 105/63 04/02/20 04:00 18 Mechanical Ventilator 70 04/02/20 04:00 18 105/63 Mechanical Ventilator 70 04/02/20 04:00 Mechanical Ventilator 04/02/20 03:51 18 103/67 Mechanical Ventilator 70 04/02/20 03:28 80 18 70 04/02/20 03:00 104/65 04/02/20 03:00 18 Mechanical Ventilator 70 04/02/20 03:00 18 104/65 Mechanical Ventilator 70 04/02/20 03:00 79 18 104/65 (78) 97 04/02/20 02:48 18 Mechanical Ventilator 70 04/02/20 02:00 81 18 108/67 (81) 97 04/02/20 02:00 108/67 04/02/20 02:00 18 Mechanical Ventilator 70 04/02/20 02:00 18 108/67 Mechanical Ventilator 70 04/02/20 01:24 85 18 70 04/02/20 01:00 85 18 109/65 (80) 96 04/02/20 01:00 109/65 04/02/20 01:00 18 Mechanical Ventilator 70 04/02/20 01:00 18 109/65 Mechanical Ventilator 70 04/02/20 00:00 91 04/02/20 00:00 70 04/02/20 00:00 Mechanical Ventilator 04/02/20 00:00 114/67 04/02/20 00:00 18 Mechanical Ventilator 70 04/02/20 00:00 18 114/67 Mechanical Ventilator 70 04/02/20 00:00 98.4 91 18 114/67 (83) 95 04/01/20 23:06 89 18 70 04/01/20 23:00 109/68 04/01/20 23:00 18 Mechanical Ventilator 70 04/01/20 23:00 18 109/68 Mechanical Ventilator 70 04/01/20 23:00 92 18 109/68 (82) 96 04/01/20 22:00 111/75 04/01/20 22:00 18 Mechanical Ventilator 70 04/01/20 22:00 18 111/75 Mechanical Ventilator 70 04/01/20 22:00 89 18 111/75 (87) 97 04/01/20 21:12 79 18 70 04/01/20 21:00 82 18 102/65 (77) 97 04/01/20 21:00 102/65 04/01/20 21:00 18 Mechanical Ventilator 70 04/01/20 21:00 18 102/65 Mechanical Ventilator 70 04/01/20 20:00 115/69 04/01/20 20:00 18 Mechanical Ventilator 70 04/01/20 20:00 18 115/69 Mechanical Ventilator 70 04/01/20 20:00 76 04/01/20 20:00 98.6 81 18 115/69 (84) 97 04/01/20 20:00 70 04/01/20 20:00 Mechanical Ventilator 04/01/20 19:30 18 117/68 Mechanical Ventilator 100 04/01/20 19:23 77 18 70 04/01/20 19:09 75 18 114/67 (83) 97 04/01/20 19:00 114/67 04/01/20 19:00 18 Mechanical Ventilator 80 04/01/20 19:00 18 114/67 Mechanical Ventilator 80 04/01/20 18:04 79 18 121/74 (90) 96 04/01/20 18:00 121/74 04/01/20 18:00 18 Mechanical Ventilator 80 04/01/20 18:00 18 121/74 Mechanical Ventilator 80 04/01/20 17:00 80 18 118/73 (88) 95 04/01/20 17:00 114/71 04/01/20 17:00 18 Mechanical Ventilator 80 04/01/20 17:00 18 114/71 Mechanical Ventilator 80 04/01/20 16:47 18 Mechanical Ventilator 80 04/01/20 16:40 101 18 70 04/01/20 16:00 Mechanical Ventilator 04/01/20 16:00 122/73 04/01/20 16:00 18 Mechanical Ventilator 80 04/01/20 16:00 18 122/73 Mechanical Ventilator 80 04/01/20 16:00 79 04/01/20 16:00 98.5 89 18 122/76 (91) 92 04/01/20 16:00 80 04/01/20 15:13 96 18 70 04/01/20 15:00 117/66 04/01/20 15:00 18 Mechanical Ventilator 80 04/01/20 15:00 18 117/66 Mechanical Ventilator 80 04/01/20 15:00 80 18 117/66 (83) 95 04/01/20 14:00 134/83 04/01/20 14:00 18 Mechanical Ventilator 80 04/01/20 14:00 18 136/80 Mechanical Ventilator 80 04/01/20 14:00 79 18 136/80 (98) 98 04/01/20 13:25 109/69 04/01/20 13:09 89 18 70 04/01/20 13:07 98.9 80 18 109/69 (82) 98 04/01/20 13:00 109/69 04/01/20 13:00 18 Mechanical Ventilator 80 04/01/20 13:00 18 109/69 Mechanical Ventilator 80 04/01/20 12:08 98.9 82 18 111/72 (85) 96 04/01/20 12:08 80 04/01/20 12:00 Mechanical Ventilator 04/01/20 12:00 112/73 04/01/20 12:00 18 Mechanical Ventilator 80 04/01/20 12:00 18 112/73 Mechanical Ventilator 80 04/01/20 12:00 77 04/01/20 11:26 18 112/74 Mechanical Ventilator 80 04/01/20 11:24 78 18 70 General Appearance: no apparent distress, on vent, patient on isolation, isol ation precautions Extremities: no swelling Intake and Output 04/01/20 04/02/20 19:00 07:00 Intake Total 1830 ml 1554.7 ml Output Total 1700 ml 1230 ml Balance 130 ml 324.7 ml Free Water 320 ml 260 ml IV Total 850 ml 754.7 ml Tube Feeding 480 ml 480 ml Other 180 ml 60 ml Output Urine Total 1500 ml 730 ml Stool Total 200 ml 500 ml Laboratory Tests Test 04/01/20 11:21 04/02/20 05:39 POC Whole Blood Glucose 172 MG/DL (74-106) H White Blood Count 7.9 K/UL (4.8-10.8) Red Blood Count 3.54 M/UL (4.70-6.10) L Hemoglobin 9.9 G/DL (14.2-18.0) L Hematocrit 31.9 % (42.0-52.0) L Mean Corpuscular Volume 90 FL (80-99) Mean Corpuscular Hemoglobin 27.9 PG (27.0-31.0) Mean Corpuscular Hemoglobin Concent 31.0 G/DL (32.0-36.0) L Red Cell Distribution Width 15.2 % (11.6-14.8) H Platelet Count 217 K/UL (150-450) Mean Platelet Volume 6.2 FL (6.5-10.1) L Neutrophils (%) (Auto) % (45.0-75.0) Lymphocytes (%) (Auto) % (20.0-45.0) Monocytes (%) (Auto) % (1.0-10.0) Eosinophils (%) (Auto) % (0.0-3.0) Basophils (%) (Auto) % (0.0-2.0) Differential Total Cells Counted 100 Neutrophils % (Manual) 89 % (45-75) H Lymphocytes % (Manual) 9 % (20-45) L Monocytes % (Manual) 2 % (1-10) Eosinophils % (Manual) 0 % (0-3) Basophils % (Manual) 0 % (0-2) Band Neutrophils 0 % (0-8) Platelet Estimate Adequate Platelet Morphology Normal Anisocytosis 1+ Stomatocytes Occasional Sodium Level 150 MMOL/L (136-145) H Potassium Level 4.1 MMOL/L (3.5-5.1) Chloride Level 112 MMOL/L (98-107) H Carbon Dioxide Level 35 MMOL/L (21-32) H Anion Gap 3 mmol/L (5-15) L Blood Urea Nitrogen 39 mg/dL (7-18) H Creatinine 0.8 MG/DL (0.55-1.30) Estimat Glomerular Filtration Rate > 60 mL/min (>60) Glucose Level 148 MG/DL (74-106) H Calcium Level 8.1 MG/DL (8.5-10.1) L Phosphorus Level 2.4 MG/DL (2.5-4.9) L Magnesium Level 2.3 MG/DL (1.8-2.4) Total Bilirubin 0.4 MG/DL (0.2-1.0) Aspartate Amino Transf (AST/SGOT) 23 U/L (15-37) Alanine Aminotransferase (ALT/SGPT) 118 U/L (12-78) H Alkaline Phosphatase 149 U/L (46-116) H C-Reactive Protein, Quantitative 0.6 mg/dL (0.00-0.90) Pro-B-Type Natriuretic Peptide 315 pg/mL (0-125) H Total Protein 5.2 G/DL (6.4-8.2) L Albumin 2.0 G/DL (3.4-5.0) L Globulin 3.2 g/dL Albumin/Globulin Ratio 0.6 (1.0-2.7) L Objective pt in covid 19 isoaltion with acute infection Manan Awan MD Apr 02, 2020 11:07
--- NOTE | 2020-04-02 12:04 | NUR ---
INSURANCE CLINCALS FAXED TO [employer] T: [phone] #1 F: [phone] AND [employer]GER [employer]:JACQUELINE JAMES [phone] F: [phone]
--- NOTE | 2020-04-02 12:15 | NUR ---
NURSE NOTES: OGT feeding was resumed at rate of 40ml/hour since residuals are down to 5ml. Glucerna bag was replaced with new bag. Temp 99.9F axillary; ice pack and cold/compress added for cooling measures. FIO2 was lowered to 50% FIO2, spO2 remains above 90%. VS remain stable while pt is maintained -2 light sedation per RASS score on Fentanyl drip at 300mcg/hr and Versed drip at 5mcg/hr.
--- NOTE | 2020-04-02 12:25 | Nephrology Progress Note ---
Assessment/Plan Problem List: (1) Dehydration (2) Electrolyte imbalance (3) COVID-19 virus infection (4) Pneumonia (5) DMII (diabetes mellitus, type 2) (6) Protein malnutrition Assessment Azotemia, hypernatremia Hypoalbuminemia Staff Otilia bacteremia COVID-19 isolation, pneumonia, bilateral infiltrate Hypertension Diabetes mellitus History of smoking Plan April 02: Full code. On ventilator. Discussed with RN. Serum sodium sli ghtly higher. Will cut down on IV Lasix. Continue per consultants. Continue to monitor renal parameters and electrolytes. April 01: Full code. Remains on ventilator. Labs reviewed. Stable from renal standpoint of view. Continue per consultants. March 31: Full code . Remains intubated on ventilator. Labs reviewed. Patient appears toxic. Discussed with RN. Maintenance IV discontinued. Medication list reviewed. Blood pressure medication stopped due to low blood pressure. Levemir insulin stopped. Continue monitor blood sugar and sliding scale insulin. March 30: Full code. On ventilator. Labs reviewed. Clonidine patch dose increased. Lasix increased. 3% saline 1 time ordered. Continue to monitor electrolytes and renal parameters. March 29: Remains full code. On mechanical ventilation. On tube feeding. Will DC TPN. Will start on maintenance IV fluid. Continue to monitor renal parameters. March 28: On BiPAP. Full code. On TPN. Labs reviewed. Discussed with pharmacy. Continue as is. Watch serum potassium. March 27: Remains on BiPAP. No chemistry panel done today. Full code. On TPN. Will check lab tomorrow. March 26: Remains on BiPAP. Remains on TPN. Labs reviewed. Electrolytes and chemistries within normal limits. Continue as is. March 25: Remains on TPN. Labs reviewed. Discussed with pharmacy. Change IV Protonix to p.o. Continue 3% saline infusion with Lasix. Patient full code. March 24: Continue to be on TPN. Labs are reviewed. Aim to collect electroly karo. Discussed with pharmacy. Continue current consultants. March 23: Continues to be on TPN. Labs reviewed. Electrolytes and chemistries all acceptable. Discussed with pharmacy. Continue current management. March 22: On TPN. Labs reviewed. Low sodium noted. 3% saline to be continued. Continue to monitor electrolytes. Discussed with pharmacy. March 21: On TPN. Labs reviewed. Continue 3% saline and Lasix for mild hyponatremia. Continue TPN as these. Discussed with pharmacy. March 20: Remains on TPN. Labs reviewed. Serum sodium higher on IV Lasix and 3% saline infusion. Continue TPN as is. Continue to monitor renal parameters and electrolytes. Discussed with Dr. Mata March 19: Remains on TPN. Labs reviewed. Serum sodium 128. Will give 3% saline with IV Lasix. Continue to monitor electrolytes. No change in TPN composition. Discussed with pharmacy. March 18: Remains on TPN. Labs reviewed. Discussed with pharmacist. Will give 3 doses of IV Lasix 20 mg every 8 hours. Continue to monitor serum sodium electrolytes uric acid. White blood cells down. Continue per consultants. March 17: On TPN. Labs reviewed. Discussed with pharmacist. Sodium content increase. Continue to monitor CMP. Patient continues to have leukocytosis. March 16: On TPN. Labs reviewed. Discussed with pharmacist. Appropriate changes made. Continue to monitor electrolytes. March 15: Remains on TPN. Labs reviewed. Discussed with pharmacist. Continue per current management. March 14: Remains on TPN. Labs reviewed, stable. Vitamin D level low, replacement ordered. Continue to monitor electrolytes and renal parameters. March 13: Patient remains on TPN. Discussed with pharmacist. TPN's sodium content adjusted. Labs reviewed. Continue to monitor electrolytes. Blood pressure remains stable. Continue per consultants. March 12: Patient on TPN. Labs reviewed. CPK remains elevated. Abnormal electrolytes and high blood sugar discussed with pharmacist and TPN adjusted. Continue to monitor labs. Oral Protonix added. Ibuprofen discontinued. Can continue to monitor electrolytes and chemistries. Levemir for high blood sugar added. March 11: Patient on TPN. Labs as of 11:15 AM is still pending. Continue per current treatment plan. Will check labs and adjust TPN as needed. Continue per consultants. March 10: Patient on TPN. Labs reviewed. Electrolytes overall stable. CPK is elevated. Will monitor electrolyte, CPK level, lipid panel. Continue per consultants. Discussed with pharmacist. Discussed with RN. Nutritional evaluation noted. Previously: D5W 100 cc an hour Monitor electrolytes renal parameters TPN and Intralipid ordered Will follow Continue per consultants Dietary consult requested Subjective ROS Limited/Unobtainable: Yes Objective Objective Last 24 Hour Vital Signs Date Time Temp Pulse Resp B/P (MAP) Pulse Ox O2 Delivery O2 Flow Rate FiO2 1/31/21 11:00 18 Mechanical Ventilator 70 04/02/20 11:00 18 103/66 Mechanical Ventilator 70 04/02/20 11:00 82 18 103/66 (78) 97 04/02/20 10:00 88 18 107/68 (81) 97 04/02/20 10:00 18 Mechanical Ventilator 70 04/02/20 10:00 18 107/68 Mechanical Ventilator 70 04/02/20 09:00 100 18 115/74 (88) 96 04/02/20 09:00 18 Mechanical Ventilator 70 04/02/20 09:00 18 115/74 Mechanical Ventilator 70 04/02/20 08:31 101 18 95 Mechanical Ventilator 70 04/02/20 08:30 98 18 123/75 (91) 95 04/02/20 08:00 Mechanical Ventilator 04/02/20 08:00 97 04/02/20 08:00 18 Mechanical Ventilator 70 04/02/20 08:00 18 121/76 Mechanical Ventilator 70 04/02/20 08:00 70 04/02/20 08:00 99.3 95 18 121/76 (91) 95 04/02/20 07:30 94 18 111/70 (84) 95 04/02/20 07:16 101 18 70 04/02/20 07:00 18 Mechanical Ventilator 70 04/02/20 07:00 18 108/69 Mechanical Ventilator 70 04/02/20 07:00 95 18 108/69 (82) 95 04/02/20 06:00 83 18 110/65 (80) 96 04/02/20 06:00 18 Mechanical Ventilator 70 04/02/20 06:00 18 110/65 Mechanical Ventilator 70 04/02/20 05:23 80 18 70 04/02/20 05:00 81 18 108/72 (84) 97 04/02/20 05:00 108/72 04/02/20 05:00 18 Mechanical Ventilator 70 04/02/20 05:00 18 108/72 Mechanical Ventilator 70 04/02/20 04:00 78 04/02/20 04:00 70 04/02/20 04:00 99.4 78 18 105/63 (77) 97 04/02/20 04:00 105/63 04/02/20 04:00 18 Mechanical Ventilator 70 04/02/20 04:00 18 105/63 Mechanical Ventilator 70 04/02/20 04:00 Mechanical Ventilator 04/02/20 03:51 18 103/67 Mechanical Ventilator 70 04/02/20 03:28 80 18 70 04/02/20 03:00 104/65 04/02/20 03:00 18 Mechanical Ventilator 70 04/02/20 03:00 18 104/65 Mechanical Ventilator 70 04/02/20 03:00 79 18 104/65 (78) 97 04/02/20 02:48 18 Mechanical Ventilator 70 04/02/20 02:00 81 18 108/67 (81) 97 04/02/20 02:00 108/67 04/02/20 02:00 18 Mechanical Ventilator 70 04/02/20 02:00 18 108/67 Mechanical Ventilator 70 04/02/20 01:24 85 18 70 04/02/20 01:00 85 18 109/65 (80) 96 04/02/20 01:00 109/65 04/02/20 01:00 18 Mechanical Ventilator 70 04/02/20 01:00 18 109/65 Mechanical Ventilator 70 04/02/20 00:00 91 04/02/20 00:00 70 04/02/20 00:00 Mechanical Ventilator 04/02/20 00:00 114/67 04/02/20 00:00 18 Mechanical Ventilator 70 04/02/20 00:00 18 114/67 Mechanical Ventilator 70 04/02/20 00:00 98.4 91 18 114/67 (83) 95 04/01/20 23:06 89 18 70 04/01/20 23:00 109/68 04/01/20 23:00 18 Mechanical Ventilator 70 04/01/20 23:00 18 109/68 Mechanical Ventilator 70 04/01/20 23:00 92 18 109/68 (82) 96 04/01/20 22:00 111/75 04/01/20 22:00 18 Mechanical Ventilator 70 04/01/20 22:00 18 111/75 Mechanical Ventilator 70 04/01/20 22:00 89 18 111/75 (87) 97 04/01/20 21:12 79 18 70 04/01/20 21:00 82 18 102/65 (77) 97 04/01/20 21:00 102/65 04/01/20 21:00 18 Mechanical Ventilator 70 04/01/20 21:00 18 102/65 Mechanical Ventilator 70 04/01/20 20:00 115/69 04/01/20 20:00 18 Mechanical Ventilator 70 04/01/20 20:00 18 115/69 Mechanical Ventilator 70 04/01/20 20:00 76 04/01/20 20:00 98.6 81 18 115/69 (84) 97 04/01/20 20:00 70 04/01/20 20:00 Mechanical Ventilator 04/01/20 19:30 18 117/68 Mechanical Ventilator 100 04/01/20 19:23 77 18 70 04/01/20 19:09 75 18 114/67 (83) 97 04/01/20 19:00 114/67 04/01/20 19:00 18 Mechanical Ventilator 80 04/01/20 19:00 18 114/67 Mechanical Ventilator 80 04/01/20 18:04 79 18 121/74 (90) 96 04/01/20 18:00 121/74 04/01/20 18:00 18 Mechanical Ventilator 80 04/01/20 18:00 18 121/74 Mechanical Ventilator 80 04/01/20 17:00 80 18 118/73 (88) 95 04/01/20 17:00 114/71 04/01/20 17:00 18 Mechanical Ventilator 80 04/01/20 17:00 18 114/71 Mechanical Ventilator 80 04/01/20 16:47 18 Mechanical Ventilator 80 04/01/20 16:40 101 18 70 04/01/20 16:00 Mechanical Ventilator 04/01/20 16:00 122/73 04/01/20 16:00 18 Mechanical Ventilator 80 04/01/20 16:00 18 122/73 Mechanical Ventilator 80 04/01/20 16:00 79 04/01/20 16:00 98.5 89 18 122/76 (91) 92 04/01/20 16:00 80 04/01/20 15:13 96 18 70 04/01/20 15:00 117/66 04/01/20 15:00 18 Mechanical Ventilator 80 04/01/20 15:00 18 117/66 Mechanical Ventilator 80 04/01/20 15:00 80 18 117/66 (83) 95 04/01/20 14:00 134/83 04/01/20 14:00 18 Mechanical Ventilator 80 04/01/20 14:00 18 136/80 Mechanical Ventilator 80 04/01/20 14:00 79 18 136/80 (98) 98 04/01/20 13:25 109/69 04/01/20 13:09 89 18 70 04/01/20 13:07 98.9 80 18 109/69 (82) 98 04/01/20 13:00 109/69 04/01/20 13:00 18 Mechanical Ventilator 80 04/01/20 13:00 18 109/69 Mechanical Ventilator 80 Intake and Output 04/01/20 04/02/20 19:00 07:00 Intake Total 1830 ml 1554.7 ml Output Total 1700 ml 1230 ml Balance 130 ml 324.7 ml Free Water 320 ml 260 ml IV Total 850 ml 754.7 ml Tube Feeding 480 ml 480 ml Other 180 ml 60 ml Output Urine Total 1500 ml 730 ml Stool Total 200 ml 500 ml Current Medications Medications (Trade) Dose Ordered Sig/Dennis Route PRN Reason Start Time Stop Time Status Last Admin Dose Admin Acetaminophen (Tylenol) 650 mg Q4H PRN ORAL Mild Pain (Pain Scale 1-3) 03/09/20 12:00 04/08/20 11:59 03/31/20 20:08 Bisacodyl (Dulcolax) 10 mg Q12H PRN RECTAL Constipation 03/18/20 16:45 06/16/20 16:44 Chlorhexidine Gluconate (Marlen-Hex 2%) 1 applic DAILY@2000 TOPIC 03/30/20 20:00 06/28/20 19:59 04/01/20 19:29 Dextrose (Dextrose 50%) 25 ml Q30M PRN IV Hypoglycemia 03/29/20 20:45 06/27/20 20:44 Dextrose (Dextrose 50%) 50 ml Q30M PRN IV Hypoglycemia 03/29/20 20:45 06/27/20 20:44 Enoxaparin Sodium (Lovenox) 40 mg DAILY SUBQ 03/13/20 12:00 06/11/20 11:59 04/02/20 08:11 Fentanyl Citrate 250 ml @ 1 mls/hr Q24H IV 03/30/20 19:50 04/04/20 19:30 04/02/20 03:51 Furosemide (Lasix) 20 mg DAILY IV 04/03/20 09:00 04/18/20 13:59 UNV Hydralazine HCl (Apresoline) 10 mg Q4H PRN IV For High Blood Pressure 03/30/20 12:15 06/28/20 12:14 03/31/20 06:13 Insulin Aspart (NovoLOG) Q6HR SUBQ 03/30/20 00:00 06/28/20 00:00 04/02/20 05:32 Labetalol HCl (Normodyne) 10 mg Q4H PRN IV sbp greater tahtn 160 03/28/20 17:30 04/27/20 17:29 Lactulose (Cephulac) 20 gm THREE TIMES A DAY ORAL 03/08/20 13:00 04/07/20 12:59 04/02/20 08:10 Meropenem 1 gm/ Sodium Chloride 100 ml @ 200 mls/hr Q8HR IVPB 03/29/20 15:00 04/03/20 14:59 04/02/20 05:17 Methylprednisolone Sodium Succinate (Solu-MEDROL) 40 mg EVERY 8 HOURS IVP 03/22/20 14:00 06/20/20 13:59 04/02/20 05:17 Metoclopramide HCl (Reglan) 10 mg Q6H IVP 03/30/20 15:00 04/29/20 14:59 04/02/20 08:10 Micafungin Sodium 100 mg/Sodium Chloride 100 ml @ 100 mls/hr Q24H IVPB 03/29/20 15:00 04/05/20 14:59 04/01/20 15:20 Midazolam HCl 100 ml @ 0 mls/hr Q24H PRN IV Agitation 04/02/20 10:03 04/04/20 10:02 Norepinephrine Bitartrate 4 mg/ Sodium Chloride 250 ml @ 0 mls/hr Q24H PRN IV For hypotension 03/31/20 19:30 04/03/20 19:29 04/01/20 13:25 Pantoprazole (Protonix) 40 mg EVERY 12 HOURS IVP 04/01/20 21:00 05/01/20 20:59 04/02/20 08:09 Polyethylene Glycol (Miralax) 17 gm BEDTIME ORAL 03/08/20 21:00 04/07/20 20:59 04/01/20 20:22 Trimethoprim/ Sulfamethoxazole (Bactrim-DS) 1 tab Q24H ORAL 03/29/20 17:00 04/05/20 16:59 04/01/20 17:37 Vitamin D (Vitamin D) 5,000 unit DAILY ORAL 03/15/20 09:00 04/14/20 08:59 04/02/20 08:10 Laboratory Tests 04/02/20 05:39: White Blood Count 7.9, Red Blood Count 3.54L, Hemoglobin 9.9L, Hematocrit 31.9L, Mean Corpuscular Volume 90, Mean Corpuscular Hemoglobin 27.9, Mean Corpuscular Hemoglobin Concent 31.0L, Red Cell Distribution Width 15.2H, Platelet Count 217, Mean Platelet Volume 6.2L, Neutrophils (%) (Auto) , Lymphocytes (%) (Auto) , Monocytes (%) (Auto) , Eosinophils (%) (Auto) , Basophils (%) (Auto) , Differential Total Cells Counted 100, Neutrophils % (Manual) 89H, Lymphocytes % (Manual) 9L, Monocytes % (Manual) 2, Eosinophils % (Manual) 0, Basophils % (Manual) 0, Band Neutrophils 0, Platelet Estimate Adequate, Platelet Morphology Normal, Anisocytosis 1+, Stomatocytes Occasional, Sodium Level 150H, Potassium Level 4.1, Chloride Level 112H, Carbon Dioxide Level 35H, Anion Gap 3L, Blood Urea Nitrogen 39H, Creatinine 0.8, Estimat Glomerular Filtration Rate > 60, Glucose Level 148H, Calcium Level 8.1L, Phosphorus Level 2.4L, Magnesium Level 2.3, Total Bilirubin 0.4, Aspartate Amino Transf (AST/SGOT) 23, Alanine Aminotransferase (ALT/SGPT) 118H, Alkaline Phosphatase 149H, C-Reactive Protein, Quantitative 0.6, Pro-B-Type Natriuretic Peptide 315H, Total Protein 5.2L, Albumin 2.0L, Globulin 3.2, Albumin/Globulin Ratio 0.6L Height (Feet): 5 Height (Inches): 10.00 Weight (Pounds): 240 General Appearance: no apparent distress EENT: other - Intubated on ventilator Cardiovascular: tachycardia Respiratory/Chest: decreased breath sounds Abdomen: distended Rubin Cooper MD Apr 02, 2020 12:25
--- NOTE | 2020-04-02 12:40 | NUR ---
NURSE NOTES: New Fentanyl and Versed bags were scanned to replace previous empty bags, continuing same rate of 300mcg/hr and 5mg/hr respectively for RASS score of -2 light sedation.
[2020-04-02] MEDS ORDERED: Potassium Phosphate 20 MM in NS 275 ML IV SCH (14:00)
--- NOTE | 2020-04-02 14:30 | NUR ---
NURSE NOTES: Khos 20mm is being infused per Dr Cooper's order. OGT flushed with cold water for cooling measures. FIO2 is now back up to 60% due to desaturation down to 88% while on 50% FIO2.
--- NOTE | 2020-04-02 15:44 | Infectious Diseases Prog Note ---
Assessment/Plan Assessment/Plan ASSESSMENT AND PLAN: 1. staph aureus bacteremia/mssa, ? source, ? endocarditis, sepsis, leukocytosis, ? CAP, PJP less likely with HIV negative and steroids < 1 month covid-19 +, hypoxia, sob, chest x-ray worse, ? PE, ? HCAP/aspiration pna recurrent fevers - ? fungal, ? OI leukocytosis noted - ? new infection, ? steroids cocci serology negative, legionella negative, beta 1,3 D-glucan wnl, Il-16 - 13.7 elevated LFT's - ? TPN, ? Bactrim - US without gallbladder disease, + steatosis - d/w GI - TPN more likely than bactrim as etiology e.coli uti - s/p treatment with rocephin, s/p treatment for presumptive pneumocystis pna + yeast in blood, fungemia, ? line infection, sepsis, shock, pna, sc-nf - meropenem (-03/29/20), micafungin (03/29/20/), discontinue vancomycin, limited use with diflucan secondary to drug interaction - change line - picc line (02/14/20) - surveillance blood cultures ordered - bactrim for pneumocystis prophylaxis, s/p pneumocystis treatment - s/p tx for mssa bacteremia and ? endocarditis - monitor hypoxia, labs and chest x-ray - some clinical improvement with decrease in fio2 and now off pressors - guarded condition 2. covid-19 isolation 3. Hypertension history. Blood pressure treatment primary care team. 4. Elevated blood sugars. Blood sugar treatment per primary care team. 5. No known drug allergies. 6. Social history is positive for smoking. 7. Family history is noncontributory. 8. MAR was noted. 9. Case was discussed with RN. 10. Continue treatment per primary consultants. Subjective Constitutional: Reports: other - on vent, off pressors now ; Denies: fever HEENT: Reports: congestion Respiratory: Reports: shortness of breath Cardiovascular: Reports: other - no pressors Gastrointestinal/Abdominal: Denies: nausea, vomiting, diarrhea Genitourinary: Reports: other - + joseph Neurologic: Reports: other - sedated, on vent Psychiatric: Reports: other - NA Skin: Denies: rash Hematologic: Denies: bleeding Musculoskeletal: Reports: other - NA Allergies: Coded Allergies: No Known Allergies (Unverified , 02/05/20) Objective Last 24 Hour Vital Signs Date Time Temp Pulse Resp B/P (MAP) Pulse Ox O2 Delivery O2 Flow Rate FiO2 04/02/20 15:00 18 Mechanical Ventilator 60 04/02/20 15:00 18 104/66 Mechanical Ventilator 60 04/02/20 15:00 85 18 103/66 (78) 96 04/02/20 14:30 84 18 92/59 (70) 90 04/02/20 14:00 18 Mechanical Ventilator 50 04/02/20 14:00 18 94/62 Mechanical Ventilator 50 04/02/20 14:00 82 18 96/62 (73) 91 04/02/20 13:30 81 18 98/62 (74) 90 04/02/20 13:14 79 18 60 04/02/20 13:10 99.3 04/02/20 13:00 18 Mechanical Ventilator 50 04/02/20 13:00 18 96/62 Mechanical Ventilator 50 04/02/20 13:00 85 18 98/62 (74) 90 04/02/20 12:40 18 Mechanical Ventilator 95.0 70 04/02/20 12:40 18 Mechanical Ventilator 70 04/02/20 12:39 18 104/66 Mechanical Ventilator 95.0 70 04/02/20 12:30 79 18 104/66 (79) 98 04/02/20 12:00 99.9 79 18 99/64 (76) 98 04/02/20 12:00 18 Mechanical Ventilator 70 04/02/20 12:00 18 104/66 Mechanical Ventilator 70 04/02/20 12:00 Mechanical Ventilator 04/02/20 12:00 79 04/02/20 12:00 70 04/02/20 11:15 76 18 60 04/02/20 11:00 18 Mechanical Ventilator 70 04/02/20 11:00 18 103/66 Mechanical Ventilator 70 04/02/20 11:00 82 18 103/66 (78) 97 04/02/20 10:00 88 18 107/68 (81) 97 04/02/20 10:00 18 Mechanical Ventilator 70 04/02/20 10:00 18 107/68 Mechanical Ventilator 70 04/02/20 09:11 78 18 60 04/02/20 09:00 100 18 115/74 (88) 96 04/02/20 09:00 18 Mechanical Ventilator 70 04/02/20 09:00 18 115/74 Mechanical Ventilator 70 04/02/20 08:31 101 18 95 Mechanical Ventilator 70 04/02/20 08:30 98 18 123/75 (91) 95 04/02/20 08:00 Mechanical Ventilator 04/02/20 08:00 97 04/02/20 08:00 18 Mechanical Ventilator 70 04/02/20 08:00 18 121/76 Mechanical Ventilator 70 04/02/20 08:00 70 04/02/20 08:00 99.3 95 18 121/76 (91) 95 04/02/20 07:30 94 18 111/70 (84) 95 04/02/20 07:16 101 18 70 04/02/20 07:00 18 Mechanical Ventilator 70 04/02/20 07:00 18 108/69 Mechanical Ventilator 70 04/02/20 07:00 95 18 108/69 (82) 95 04/02/20 06:00 83 18 110/65 (80) 96 04/02/20 06:00 18 Mechanical Ventilator 70 04/02/20 06:00 18 110/65 Mechanical Ventilator 70 04/02/20 05:23 80 18 70 04/02/20 05:00 81 18 108/72 (84) 97 04/02/20 05:00 108/72 04/02/20 05:00 18 Mechanical Ventilator 70 04/02/20 05:00 18 108/72 Mechanical Ventilator 70 04/02/20 04:00 78 04/02/20 04:00 70 04/02/20 04:00 99.4 78 18 105/63 (77) 97 04/02/20 04:00 105/63 04/02/20 04:00 18 Mechanical Ventilator 70 04/02/20 04:00 18 105/63 Mechanical Ventilator 70 04/02/20 04:00 Mechanical Ventilator 04/02/20 03:51 18 103/67 Mechanical Ventilator 70 04/02/20 03:28 80 18 70 04/02/20 03:00 104/65 04/02/20 03:00 18 Mechanical Ventilator 70 04/02/20 03:00 18 104/65 Mechanical Ventilator 70 04/02/20 03:00 79 18 104/65 (78) 97 04/02/20 02:48 18 Mechanical Ventilator 70 04/02/20 02:00 81 18 108/67 (81) 97 04/02/20 02:00 108/67 04/02/20 02:00 18 Mechanical Ventilator 70 04/02/20 02:00 18 108/67 Mechanical Ventilator 70 04/02/20 01:24 85 18 70 04/02/20 01:00 85 18 109/65 (80) 96 04/02/20 01:00 109/65 04/02/20 01:00 18 Mechanical Ventilator 70 04/02/20 01:00 18 109/65 Mechanical Ventilator 70 04/02/20 00:00 91 04/02/20 00:00 70 04/02/20 00:00 Mechanical Ventilator 04/02/20 00:00 114/67 04/02/20 00:00 18 Mechanical Ventilator 70 04/02/20 00:00 18 114/67 Mechanical Ventilator 70 04/02/20 00:00 98.4 91 18 114/67 (83) 95 04/01/20 23:06 89 18 70 04/01/20 23:00 109/68 04/01/20 23:00 18 Mechanical Ventilator 70 04/01/20 23:00 18 109/68 Mechanical Ventilator 70 04/01/20 23:00 92 18 109/68 (82) 96 04/01/20 22:00 111/75 04/01/20 22:00 18 Mechanical Ventilator 70 04/01/20 22:00 18 111/75 Mechanical Ventilator 70 04/01/20 22:00 89 18 111/75 (87) 97 04/01/20 21:12 79 18 70 04/01/20 21:00 82 18 102/65 (77) 97 04/01/20 21:00 102/65 04/01/20 21:00 18 Mechanical Ventilator 70 04/01/20 21:00 18 102/65 Mechanical Ventilator 70 04/01/20 20:00 115/69 04/01/20 20:00 18 Mechanical Ventilator 70 04/01/20 20:00 18 115/69 Mechanical Ventilator 70 04/01/20 20:00 76 04/01/20 20:00 98.6 81 18 115/69 (84) 97 04/01/20 20:00 70 04/01/20 20:00 Mechanical Ventilator 04/01/20 19:30 18 117/68 Mechanical Ventilator 100 04/01/20 19:23 77 18 70 04/01/20 19:09 75 18 114/67 (83) 97 04/01/20 19:00 114/67 04/01/20 19:00 18 Mechanical Ventilator 80 04/01/20 19:00 18 114/67 Mechanical Ventilator 80 04/01/20 18:04 79 18 121/74 (90) 96 04/01/20 18:00 121/74 04/01/20 18:00 18 Mechanical Ventilator 80 04/01/20 18:00 18 121/74 Mechanical Ventilator 80 04/01/20 17:00 80 18 118/73 (88) 95 04/01/20 17:00 114/71 04/01/20 17:00 18 Mechanical Ventilator 80 04/01/20 17:00 18 114/71 Mechanical Ventilator 80 04/01/20 16:47 18 Mechanical Ventilator 80 04/01/20 16:40 101 18 70 04/01/20 16:00 Mechanical Ventilator 04/01/20 16:00 122/73 04/01/20 16:00 18 Mechanical Ventilator 80 04/01/20 16:00 18 122/73 Mechanical Ventilator 80 04/01/20 16:00 79 04/01/20 16:00 98.5 89 18 122/76 (91) 92 04/01/20 16:00 80 Height (Feet): 5 Height (Inches): 10.00 Weight (Pounds): 240 General Appearance: no acute distress HEENT: normocephalic, atraumatic, anicteric Respiratory/Chest: crackles/rales, rhonchi - bilaterally Cardiovascular: normal rate, regular rhythm, no gallop/murmur Abdomen: normal bowel sounds, soft, non tender, no organomegaly, non distended Genitourinary: other - + joseph Extremities: no cyanosis Skin: no rash 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 The infiltrates are typical for Covid 19. No evidence of pulmonary embolus. CT abdomen and pelvis: IMPRESSION: 1. Scattered hepatic hypodense lesions, too small to characterize on this examination without intravenous contrast. 2. Colonic diverticulosis without evidence of acute diverticulitis. 3. Scattered enlarged mesenteric lymph nodes, presumably reactive. teral pneumonia. The infiltrates are typical for Covid 19. No evidence of pulmonary embolus. Chest x-ray - 12/19/19 - Indication: Shortness of breath Technique: One view of the chest Comparison: 02/17/2020 Findings: Interim worsening of bilateral infiltrates, particularly on the right. The heart is borderline enlarged. The pleural spaces are clear. Left arm PICC is again demonstrated Impression: Worsening bilateral infiltrates over one day, likely pneumonia CT chest - 02/19/20 - IMPRESSION: Increased extensive patchy ground-glass opacities and densities throughout the lungs, suggestive of Covid 19 infection. Chest x-ray 02/23/20 - Procedure: XRAY Chest 1v As Indication: Reason For Exam: INFECT Technique: One view of the chest Comparison: 02/20/2020 Findings: Allowing for differences in exposure technique, bilateral mid and lower lung infiltrates are probably unchanged. The heart size is normal. The pleural spaces are clear. Impression: Unchanged, over 4 days, findings as above. Chest x-ray - 02/25/20 - FINDINGS: Lungs: Interval slightly worsening bilateral airspace disease. Pleural space: Unremarkable. No pneumothorax. Heart: Unremarkable. No cardiomegaly. Mediastinum: Unremarkable. Bones/joints: Unremarkable. IMPRESSION: Interval slightly worsening bilateral airspace disease. Chest x-ray - 03/02/20 - Procedure: XRAY Chest 1v Indication: Shortness of breath Technique: One view of the chest Comparison: 02/25/2020 Findings: Bilateral interstitial and airspace infiltrates are unchanged. The heart size is normal. Left arm PICC is again demonstrated Impression: Unchanged, over one day, findings as above. Chest x-ray - 03/06/20 - Procedure: XRAY Chest 1v Indication: Shortness of breath Technique: One view of the chest Comparison: 03/02/2020 Findings: Bilateral infiltrates are unchanged. Normal heart size. Pleural spaces are clear Chest x-ray - 03/12/10 - Impression: COMPARISON: Chest radiograph March 06, 2020. FINDINGS/IMPRESSION: Improving basilar infiltrates. Follow chest radiograph recommended. The upper lung finley are clear. No pneumothorax. Stable cardiomegaly. Stable left upper extremity PICC line. anged, over 4 days, findings as above. Chest x-ray - 03/17/20 - Procedure: XRAY Chest 1v Indication: Shortness of breath Technique: One view of the chest Comparison: 03/12/2020 Findings: Left arm PICC is again demonstrated. Infiltrates are unchanged. The heart size is upper limits of normal. Impression: Unchanged, over 5 days, findings as above. Abdominal US - IMPRESSION: 1. Gallbladder is normal. 2. Hepatic steatosis. 3. 1.7 cm cyst right kidney. Impression. Chest x-ray - Procedure: XRAY Chest 1v Indication: Shortness of breath Technique: One view of the chest Comparison: 03/17/2020 Findings: Bilateral right greater than left infiltrates again demonstrated. The heart size is normal. There is a left arm PICC in good position. Impression: Unchanged, over 5 days, findings as above. Chest x-ray - 03/29/20 - Procedure: XRAY Chest 1v Indication: Cough Technique: One view of the chest Comparison: 03/28/2020 Findings: Bilateral infiltrates are unchanged or slightly worse, allowing for differences in exposure technique. The pleural spaces are clear. The heart size is normal. Stable satisfactory position of endotracheal tube, left arm PICC. Orogastric tube has retracted somewhat the position remains satisfactory. Impression: Stable to slightly worse bilateral infiltrates. Otherwise little cell changer one day Chest x-ray - 03/31/20 - Procedure: XRAY Chest 1v Indication: Post endotracheal tube repositioning Technique: One view of the chest Comparison: 3 hours earlier Findings: Interim advancement of endotracheal tube, tip projecting approximately 5 cm above the sunny. Interim advancement of orogastric tube as well. Bilateral infiltrates are unchanged. Left arm PICC remains Impression: Improved and now satisfactory tube positions as described. ICU nurse Maeve notified at the time of interpretation Chest x-ray - 04/02/20 - COMPARISON: Chest x-rays dated 03/31/20 and 03/12/20. FINDINGS: Lungs: No significant change in bilateral prominent interstitial markings. The lungs are otherwise clear without focal consolidation. Pleural space: Unremarkable. The costophrenic angles are sharp. No visible pneumothorax. Heart: Unremarkable. No cardiomegaly. Mediastinum: Unremarkable. Bones/joints: Unremarkable. Tubes, lines and devices: Endotracheal tube tip 6.5 cm above the sunny. NG tube tip in the distal stomach. Telemetry leads overlie the thorax. IMPRESSION: No significant change in bilateral prominent interstitial markings. Microbiology Date/Time Source Procedure Growth Status 03/29/20 18:57 Indwelling Cath Urine Culture - Final NO GROWTH AFTER 48 HOURS Complete 03/29/20 18:57 Sputum Gram Stain - Final Complete 03/29/20 18:57 Sputum Culture - Final Kat Albicans Usual Upper Respiratory Hillary Complete 03/29/20 15:10 Blood Blood Culture - Preliminary NO GROWTH AFTER 72 HOURS Resulted Laboratory Tests Test 04/02/20 05:39 White Blood Count 7.9 K/UL (4.8-10.8) Red Blood Count 3.54 M/UL (4.70-6.10) L Hemoglobin 9.9 G/DL (14.2-18.0) L Hematocrit 31.9 % (42.0-52.0) L Mean Corpuscular Volume 90 FL (80-99) Mean Corpuscular Hemoglobin 27.9 PG (27.0-31.0) Mean Corpuscular Hemoglobin Concent 31.0 G/DL (32.0-36.0) L Red Cell Distribution Width 15.2 % (11.6-14.8) H Platelet Count 217 K/UL (150-450) Mean Platelet Volume 6.2 FL (6.5-10.1) L Neutrophils (%) (Auto) % (45.0-75.0) Lymphocytes (%) (Auto) % (20.0-45.0) Monocytes (%) (Auto) % (1.0-10.0) Eosinophils (%) (Auto) % (0.0-3.0) Basophils (%) (Auto) % (0.0-2.0) Differential Total Cells Counted 100 Neutrophils % (Manual) 89 % (45-75) H Lymphocytes % (Manual) 9 % (20-45) L Monocytes % (Manual) 2 % (1-10) Eosinophils % (Manual) 0 % (0-3) Basophils % (Manual) 0 % (0-2) Band Neutrophils 0 % (0-8) Platelet Estimate Adequate Platelet Morphology Normal Anisocytosis 1+ Stomatocytes Occasional Sodium Level 150 MMOL/L (136-145) H Potassium Level 4.1 MMOL/L (3.5-5.1) Chloride Level 112 MMOL/L (98-107) H Carbon Dioxide Level 35 MMOL/L (21-32) H Anion Gap 3 mmol/L (5-15) L Blood Urea Nitrogen 39 mg/dL (7-18) H Creatinine 0.8 MG/DL (0.55-1.30) Estimat Glomerular Filtration Rate > 60 mL/min (>60) Glucose Level 148 MG/DL (74-106) H Calcium Level 8.1 MG/DL (8.5-10.1) L Phosphorus Level 2.4 MG/DL (2.5-4.9) L Magnesium Level 2.3 MG/DL (1.8-2.4) Total Bilirubin 0.4 MG/DL (0.2-1.0) Aspartate Amino Transf (AST/SGOT) 23 U/L (15-37) Alanine Aminotransferase (ALT/SGPT) 118 U/L (12-78) H Alkaline Phosphatase 149 U/L (46-116) H C-Reactive Protein, Quantitative 0.6 mg/dL (0.00-0.90) Pro-B-Type Natriuretic Peptide 315 pg/mL (0-125) H Total Protein 5.2 G/DL (6.4-8.2) L Albumin 2.0 G/DL (3.4-5.0) L Globulin 3.2 g/dL Albumin/Globulin Ratio 0.6 (1.0-2.7) L Current Medications Medications (Trade) Dose Ordered Sig/Dennis Route PRN Reason Start Time Stop Time Status Last Admin Dose Admin Acetaminophen (Tylenol) 650 mg Q4H PRN ORAL Mild Pain (Pain Scale 1-3) 03/09/20 12:00 04/08/20 11:59 03/31/20 20:08 Bisacodyl (Dulcolax) 10 mg Q12H PRN RECTAL Constipation 03/18/20 16:45 06/16/20 16:44 Chlorhexidine Gluconate (Marlen-Hex 2%) 1 applic DAILY@2000 TOPIC 03/30/20 20:00 06/28/20 19:59 04/01/20 19:29 Dextrose (Dextrose 50%) 25 ml Q30M PRN IV Hypoglycemia 03/29/20 20:45 06/27/20 20:44 Dextrose (Dextrose 50%) 50 ml Q30M PRN IV Hypoglycemia 03/29/20 20:45 06/27/20 20:44 Enoxaparin Sodium (Lovenox) 40 mg DAILY SUBQ 03/13/20 12:00 06/11/20 11:59 04/02/20 08:11 Fentanyl Citrate 250 ml @ 1 mls/hr Q24H IV 03/30/20 19:50 04/04/20 19:30 04/02/20 12:39 Furosemide (Lasix) 20 mg DAILY IV 04/03/20 09:00 04/18/20 13:59 Hydralazine HCl (Apresoline) 10 mg Q4H PRN IV For High Blood Pressure 03/30/20 12:15 06/28/20 12:14 03/31/20 06:13 Insulin Aspart (NovoLOG) Q6HR SUBQ 03/30/20 00:00 06/28/20 00:00 04/02/20 05:32 Labetalol HCl (Normodyne) 10 mg Q4H PRN IV sbp greater tahtn 160 03/28/20 17:30 04/27/20 17:29 Lactulose (Cephulac) 20 gm THREE TIMES A DAY ORAL 03/08/20 13:00 04/07/20 12:59 04/02/20 12:38 Meropenem 1 gm/ Sodium Chloride 100 ml @ 200 mls/hr Q8HR IVPB 03/29/20 15:00 04/03/20 14:59 04/02/20 14:25 Methylprednisolone Sodium Succinate (Solu-MEDROL) 40 mg EVERY 8 HOURS IVP 03/22/20 14:00 06/20/20 13:59 04/02/20 14:25 Metoclopramide HCl (Reglan) 10 mg Q6H IVP 03/30/20 15:00 04/29/20 14:59 04/02/20 14:26 Micafungin Sodium 100 mg/Sodium Chloride 100 ml @ 100 mls/hr Q24H IVPB 03/29/20 15:00 04/05/20 14:59 04/02/20 14:28 Midazolam HCl 100 ml @ 0 mls/hr Q24H PRN IV Agitation 04/02/20 10:03 04/04/20 10:02 04/02/20 12:40 Norepinephrine Bitartrate 4 mg/ Sodium Chloride 250 ml @ 0 mls/hr Q24H PRN IV For hypotension 03/31/20 19:30 04/03/20 19:29 04/01/20 13:25 Pantoprazole (Protonix) 40 mg EVERY 12 HOURS IVP 04/01/20 21:00 05/01/20 20:59 04/02/20 08:09 Polyethylene Glycol (Miralax) 17 gm BEDTIME ORAL 03/08/20 21:00 04/07/20 20:59 04/01/20 20:22 Potassium Phosphate 20 mm/ Sodium Chloride 281.6667 ml @ 46.944 m... ONCE IV 04/02/20 14:00 04/02/20 20:00 04/02/20 14:25 Trimethoprim/ Sulfamethoxazole (Bactrim-DS) 1 tab Q24H ORAL 03/29/20 17:00 04/05/20 16:59 04/01/20 17:37 Vitamin D (Vitamin D) 5,000 unit DAILY ORAL 03/15/20 09:00 04/14/20 08:59 04/02/20 08:10 Kisha Salazar MD Apr 02, 2020 15:43
--- NOTE | 2020-04-02 16:30 | NUR ---
NURSE NOTES: Dr Salazar is at the nurse's station and was updated on pt's current status. MD notified regarding plan for another PICC line placement tomorrow in order to replace the current PICC line access. Order noted for blood culture labs. 1 set of bottles were drawn by RN from left upper arm double lumen picc line, 1 bottle per lumen. 2nd set of bottles were drawn by laboratory [facility] peripherally from right upper extremity. Specimens were sent to lab by laboratory [facility].
[2020-04-02] MEDS: Bactrim-DS 1 tab ORAL SCH (17:10)
--- NOTE | 2020-04-02 18:00 | NUR ---
NURSE NOTES: Pt was cleaned, sacral optifoam was replaced, pt was repositioned for comfort. Oral care was done. VS stable while remains -2 light sedation on Fentanyl and Versed drips. FIO2 70% with O2Sat maintained above 90%.
--- NOTE | 2020-04-02 18:12 | General Progress Note ---
Subjective Allergies: Coded Allergies: No Known Allergies (Unverified , 02/05/20) Subjective above noted calm, on vent tolerating TF Objective Last 24 Hour Vital Signs Date Time Temp Pulse Resp B/P (MAP) Pulse Ox O2 Delivery O2 Flow Rate FiO2 04/02/20 17:34 87 18 60 04/02/20 17:00 18 Mechanical Ventilator 60 04/02/20 17:00 18 119/75 Mechanical Ventilator 60 04/02/20 17:00 98.3 91 17 120/75 (90) 92 04/02/20 16:00 81 18 100/66 (77) 94 04/02/20 16:00 82 04/02/20 16:00 60 04/02/20 16:00 18 Mechanical Ventilator 60 04/02/20 16:00 18 120/70 Mechanical Ventilator 60 04/02/20 16:00 Mechanical Ventilator 04/02/20 15:25 89 18 60 04/02/20 15:00 18 Mechanical Ventilator 60 04/02/20 15:00 18 104/66 Mechanical Ventilator 60 04/02/20 15:00 85 18 103/66 (78) 96 04/02/20 14:30 84 18 92/59 (70) 90 04/02/20 14:00 18 Mechanical Ventilator 50 04/02/20 14:00 18 94/62 Mechanical Ventilator 50 04/02/20 14:00 82 18 96/62 (73) 91 04/02/20 13:30 81 18 98/62 (74) 90 04/02/20 13:14 79 18 60 04/02/20 13:10 99.3 04/02/20 13:00 18 Mechanical Ventilator 50 04/02/20 13:00 18 96/62 Mechanical Ventilator 50 04/02/20 13:00 85 18 98/62 (74) 90 04/02/20 12:40 18 Mechanical Ventilator 95.0 70 04/02/20 12:40 18 Mechanical Ventilator 70 04/02/20 12:39 18 104/66 Mechanical Ventilator 95.0 70 04/02/20 12:30 79 18 104/66 (79) 98 04/02/20 12:00 99.9 79 18 99/64 (76) 98 04/02/20 12:00 18 Mechanical Ventilator 70 04/02/20 12:00 18 104/66 Mechanical Ventilator 70 04/02/20 12:00 Mechanical Ventilator 04/02/20 12:00 79 04/02/20 12:00 70 04/02/20 11:15 76 18 60 04/02/20 11:00 18 Mechanical Ventilator 70 04/02/20 11:00 18 103/66 Mechanical Ventilator 70 04/02/20 11:00 82 18 103/66 (78) 97 04/02/20 10:00 88 18 107/68 (81) 97 04/02/20 10:00 18 Mechanical Ventilator 70 04/02/20 10:00 18 107/68 Mechanical Ventilator 70 04/02/20 09:11 78 18 60 04/02/20 09:00 100 18 115/74 (88) 96 04/02/20 09:00 18 Mechanical Ventilator 70 04/02/20 09:00 18 115/74 Mechanical Ventilator 70 04/02/20 08:31 101 18 95 Mechanical Ventilator 70 04/02/20 08:30 98 18 123/75 (91) 95 04/02/20 08:00 Mechanical Ventilator 04/02/20 08:00 97 04/02/20 08:00 18 Mechanical Ventilator 70 04/02/20 08:00 18 121/76 Mechanical Ventilator 70 04/02/20 08:00 70 04/02/20 08:00 99.3 95 18 121/76 (91) 95 04/02/20 07:30 94 18 111/70 (84) 95 04/02/20 07:16 101 18 70 04/02/20 07:00 18 Mechanical Ventilator 70 04/02/20 07:00 18 108/69 Mechanical Ventilator 70 04/02/20 07:00 95 18 108/69 (82) 95 04/02/20 06:00 83 18 110/65 (80) 96 04/02/20 06:00 18 Mechanical Ventilator 70 04/02/20 06:00 18 110/65 Mechanical Ventilator 70 04/02/20 05:23 80 18 70 04/02/20 05:00 81 18 108/72 (84) 97 04/02/20 05:00 108/72 04/02/20 05:00 18 Mechanical Ventilator 70 04/02/20 05:00 18 108/72 Mechanical Ventilator 70 04/02/20 04:00 78 04/02/20 04:00 70 04/02/20 04:00 99.4 78 18 105/63 (77) 97 04/02/20 04:00 105/63 04/02/20 04:00 18 Mechanical Ventilator 70 04/02/20 04:00 18 105/63 Mechanical Ventilator 70 04/02/20 04:00 Mechanical Ventilator 04/02/20 03:51 18 103/67 Mechanical Ventilator 70 04/02/20 03:28 80 18 70 04/02/20 03:00 104/65 04/02/20 03:00 18 Mechanical Ventilator 70 04/02/20 03:00 18 104/65 Mechanical Ventilator 70 04/02/20 03:00 79 18 104/65 (78) 97 04/02/20 02:48 18 Mechanical Ventilator 70 04/02/20 02:00 81 18 108/67 (81) 97 04/02/20 02:00 108/67 04/02/20 02:00 18 Mechanical Ventilator 70 04/02/20 02:00 18 108/67 Mechanical Ventilator 70 04/02/20 01:24 85 18 70 04/02/20 01:00 85 18 109/65 (80) 96 04/02/20 01:00 109/65 04/02/20 01:00 18 Mechanical Ventilator 70 04/02/20 01:00 18 109/65 Mechanical Ventilator 70 04/02/20 00:00 91 04/02/20 00:00 70 04/02/20 00:00 Mechanical Ventilator 04/02/20 00:00 114/67 04/02/20 00:00 18 Mechanical Ventilator 70 04/02/20 00:00 18 114/67 Mechanical Ventilator 70 04/02/20 00:00 98.4 91 18 114/67 (83) 95 04/01/20 23:06 89 18 70 04/01/20 23:00 109/68 04/01/20 23:00 18 Mechanical Ventilator 70 04/01/20 23:00 18 109/68 Mechanical Ventilator 70 04/01/20 23:00 92 18 109/68 (82) 96 04/01/20 22:00 111/75 04/01/20 22:00 18 Mechanical Ventilator 70 04/01/20 22:00 18 111/75 Mechanical Ventilator 70 04/01/20 22:00 89 18 111/75 (87) 97 04/01/20 21:12 79 18 70 04/01/20 21:00 82 18 102/65 (77) 97 04/01/20 21:00 102/65 04/01/20 21:00 18 Mechanical Ventilator 70 04/01/20 21:00 18 102/65 Mechanical Ventilator 70 04/01/20 20:00 115/69 04/01/20 20:00 18 Mechanical Ventilator 70 04/01/20 20:00 18 115/69 Mechanical Ventilator 70 04/01/20 20:00 76 04/01/20 20:00 98.6 81 18 115/69 (84) 97 04/01/20 20:00 70 04/01/20 20:00 Mechanical Ventilator 04/01/20 19:30 18 117/68 Mechanical Ventilator 100 04/01/20 19:23 77 18 70 04/01/20 19:09 75 18 114/67 (83) 97 04/01/20 19:00 114/67 04/01/20 19:00 18 Mechanical Ventilator 80 04/01/20 19:00 18 114/67 Mechanical Ventilator 80 Intake and Output 04/01/20 04/02/20 19:00 07:00 Intake Total 1830 ml 1554.7 ml Output Total 1700 ml 1230 ml Balance 130 ml 324.7 ml Free Water 320 ml 260 ml IV Total 850 ml 754.7 ml Tube Feeding 480 ml 480 ml Other 180 ml 60 ml Output Urine Total 1500 ml 730 ml Stool Total 200 ml 500 ml Laboratory Tests 04/02/20 05:39: White Blood Count 7.9, Red Blood Count 3.54L, Hemoglobin 9.9L, Hematocrit 31.9L, Mean Corpuscular Volume 90, Mean Corpuscular Hemoglobin 27.9, Mean Corpuscular Hemoglobin Concent 31.0L, Red Cell Distribution Width 15.2H, Platelet Count 217, Mean Platelet Volume 6.2L, Neutrophils (%) (Auto) , Lymphocytes (%) (Auto) , Monocytes (%) (Auto) , Eosinophils (%) (Auto) , Basophils (%) (Auto) , Differential Total Cells Counted 100, Neutrophils % (Manual) 89H, Lymphocytes % (Manual) 9L, Monocytes % (Manual) 2, Eosinophils % (Manual) 0, Basophils % (Manual) 0, Band Neutrophils 0, Platelet Estimate Adequate, Platelet Morphology Normal, Anisocytosis 1+, Stomatocytes Occasional, Sodium Level 150H, Potassium Level 4.1, Chloride Level 112H, Carbon Dioxide Level 35H, Anion Gap 3L, Blood Urea Nitrogen 39H, Creatinine 0.8, Estimat Glomerular Filtration Rate > 60, Glucose Level 148H, Calcium Level 8.1L, Phosphorus Level 2.4L, Magnesium Level 2.3, Total Bilirubin 0.4, Aspartate Amino Transf (AST/SGOT) 23, Alanine Aminotransferase (ALT/SGPT) 118H, Alkaline Phosphatase 149H, C-Reactive Protein, Quantitative 0.6, Pro-B-Type Natriuretic Peptide 315H, Total Protein 5.2L, Albumin 2.0L, Globulin 3.2, Albumin/Globulin Ratio 0.6L Height (Feet): 5 Height (Inches): 10.00 Weight (Pounds): 240 Objective Patient seen in ICU on Vent (+) trach (+) OGT no distress exam limited due to COVID isolation Assessment/Plan Status: stable, progressing Assessment/Plan: Assessment: Dysphagia - TF dependent COVID PNA, Resp failure DM Abnormal LFT -- COVID and Hepatitis C Anemia - likely due to blood draws and illness Low albumin Recommendations No new GI recs continue TF Add protein supplements Kourtney Davila MD Apr 02, 2020 18:12
--- NOTE | 2020-04-02 19:08 | NUR ---
NURSE HAND-OFF REPORT: Latest Vital Signs: Temperature 98.3 , Pulse 85 , B/P 97 /58 , Respiratory Rate 18 , O2 SAT 91 , Mechanical Ventilator, ETT 7.5 at 26cm/lipline with vent settings AC18, VT 750, Peep 8, FIO2 60%. Vital Sign Comment: Remains on Fentanyl drip 300mcg/hr and Versed drip 5mg/hr to maintain -2 light sedation/RASS score. On Lactulose and rectal tube, total liquid stood output my otmug=[id number]. EKG Rhythm: Sinus Rhythm Rhythm change?: N Notified?: Courtney Paige MD Response: Message left await call Latest Hassan Fall Score: 45 Fall Risk: High Risk Safety Measures: Call light Within Reach, Bed Alarm Zone 1, Side Rails Side Rails x3, Bed position Low and Locked. Fall Precautions: Yellow Socks Door Sign Patient Fall Education Report given to Jose Rafael RN. Endorsed plan of care.
[2020-04-02] MEDS: Dyna-Hex 2% Top Sol 2oz TOPIC SCH (19:30)
--- NOTE | 2020-04-02 19:48 | NUR ---
NURSE NOTES: PATIENT SEDATED, ON ETT TO VENT, AC 18/TV750/FIO2 60%/PEEP 8, O2 SATURATION 92% NOTED, OGT INTACT AND PATENT, ONGOING GLUCERNA 1.5 AT 40ML/HR, RESIDUE 50ML NOTED, KEPT HOB 30 DEGREES AND ASPIRATION PRECAUTION, ABDOMEN SOFT, NON TENDER, RECTAL TUBE INTACT AND PATENT, F/C INTACT AND PATENT, NAYELI COLOR URINE OUTED, PICC LINE TO LEFT UPPER ARM AND PPL TO LEFT HAND, INTACT AND PATENT, ONGOING FENTANYL 300MCG/HR, VERSED 5MG/HR VIA PICC LINE, KEPT RASS SCORE -2, 2 POINT SOFT RESTRAINTS STATUS, MADE LOWER BED POSITION, ON BED ALARM AND LOCKED, WILL CONTINUE TO MONITOR.
--- NOTE | 2020-04-02 20:06 | NUR ---
NURSE NOTES: CALLED PT'S BROTHER (EDNA BUENROSTRO) REGARDING PICC LINE PLACEMENT W/FLUORO THAT GOT TELEPHONE CONSENT, VERIFIED 2 NURSED.
[2020-04-02] MEDS ORDERED: D5NS 1000ml IV ONE ×2 (20:28→20:33)
[2020-04-02] MEDS ORDERED: NS 275ml ONE ×2 (20:28→20:33)
[2020-04-02] MEDS ORDERED: Sterile Water Irrig 1000ml IRRIG ONE (20:28)
[2020-04-02] MEDS ORDERED: NS 500ML ONE (20:28)
[2020-04-02] MEDS ORDERED: Tubing IV Secondary IV ONE ×2 (20:28→20:33)
[2020-04-02] MEDS: Miralax 17gm pkt ORAL SCH (20:32)
--- NOTE | 2020-04-02 22:00 | NUR ---
NURSE NOTES: REPOSITIONED, PATIENT SEDATED, RASS SCORE -2 STATUS WITH FENTANYL 300MCG/HR AND VERSED DRIP 5MG/HR, VSS, O2 SATURATION 95% NOTED ON FIO2 95%, WILL CONTINUE TO MONITOR.
[2020-04-03] VITALS (35 sets, daily range): BP systolic 93–181; BP diastolic 58–89
--- NOTE | 2020-04-03 00:10 | NUR ---
NURSE NOTES: VSS, ORAL CARE WAS DONE, TOLERATED OGT FEEDING, RECTAL TUBE INTACT, KEPT HOB 30 DEGREES AND ASPIRATION PRECAUTION, WILL CONTINUE TO MONITOR.
--- NOTE | 2020-04-03 02:10 | NUR ---
NURSE NOTES: SUCTIONED, ORAL CARE WAS DONE, NO PAIN OR SOB NOTED AT THAT TIME.
[2020-04-03] MEDS: Metoclopramide 10mg/2ml Inj IVP SCH ×4 (02:36→21:07)
--- NOTE | 2020-04-03 04:05 | NUR ---
NURSE NOTES: MORNING CARE WAS DONE, PATIENT OPEN EYES, TRIED TO GRAB LINE THAT APPLIED 2 POINT SOFT RESTRAINTS ORDER, WILL CONTINUE TO MONITOR.
--- NOTE | 2020-04-03 05:14 | Operative Note - Dictated ---
DATE OF OPERATION: 03/28/2020 BRONCHOSCOPY PROCEDURE NOTE DESCRIPTION OF PROCEDURE: After informed consent, the patient was called to the operating room where he was noted to be markedly hypoxemic despite being on BiPAP. After informed consent, the patient was placed in the gurney, and attempts were made to oxygenate him as best as possible. However, his saturations remained in the 60% range. He was subsequently intubated by anesthesiologist using size 8 endotracheal tube. Post intubation, oral care was done and thick dried secretions were removed from the oral cavity under direct guidance. Next, a bronchoscope was inserted down to the level of sunny to ensure patency of airway. The airway was patent. There were no dry secretions, blood, or abnormality seen within the endo- bronchial tree up to the level of the sub bronchi. Bronchoscopy was completed. The patient was escorted to recovery room. He remained hypoxic throughout procedure and was noted to be hypoxic even prior to beginning the procedure. John Mata M.D. DR: AMADEO JOB#: [id number] CC: TAMY
[2020-04-03] MEDS: Solu-MEDROL 40mg Inj IVP SCH ×3 (05:46→21:07)
[2020-04-03] MEDS: fentaNYL 2500mcg/NS 250ml 250 ML IV SCH ×2 (05:46→15:00)
[2020-04-03] MEDS: NovoLOG Insulin Flexpen SUBQ SCH ×3 (06:00→18:00)
--- NOTE | 2020-04-03 06:30 | NUR ---
NURSE NOTES: NO ACUTE DISTRESS NOTED AT THIS SHIFT.
[2020-04-03 06:51] LABS: HEMATOCRIT 30.2 % (42.0-52.0); HEMOGLOBIN 9.5 G/DL (14.2-18.0); MEAN CORPUSCULAR VOLUME 91 FL (80-99); PLATELET COUNT 212 K/UL (150-450); RED BLOOD COUNT 3.34 M/UL (4.70-6.10); RED CELL DISTRIBUTION WIDTH 15.2 % (11.6-14.8); WHITE BLOOD COUNT 6.7 K/UL (4.8-10.8)
--- NOTE | 2020-04-03 07:30 | NUR ---
NURSE HAND-OFF REPORT: Latest Vital Signs: Temperature 98.5 , Pulse 70 , B/P 99 /63 , Respiratory Rate 18 , O2 SAT 93 , Mechanical Ventilator, O2 Flow Rate . Vital Sign Comment: EKG Rhythm: Sinus Rhythm Rhythm change?: N Notified?: Courtney Paige MD Response: Message left await call Latest Hassan Fall Score: 45 Fall Risk: High Risk Safety Measures: Call light Within Reach, Bed Alarm Zone 1, Side Rails Side Rails x3, Bed position Low and Locked. Fall Precautions: Yellow Socks Door Sign Patient Fall Education Report given to PRIYANKA ARROYO.
[2020-04-03 07:40] LABS: ALANINE AMINOTRANSFERASE 130 U/L (12-78); ALBUMIN 2.1 G/DL (3.4-5.0); ALBUMIN/GLOBULIN RATIO 0.7 (1.0-2.7); ALKALINE PHOSPHATASE 137 U/L (46-116); ANION GAP 5 mmol/L (5-15); ASPARTATE AMINO TRANSFERASE 41 U/L (15-37); BILIRUBIN,TOTAL 0.5 MG/DL (0.2-1.0); BLOOD UREA NITROGEN 40 mg/dL (7-18); CALCIUM 8.4 MG/DL (8.5-10.1); CARBON DIOXIDE 33 MMOL/L (21-32); CHLORIDE 112 MMOL/L (98-107); CREATININE 0.6 MG/DL (0.55-1.30); PHOSPHORUS 3.1 MG/DL (2.5-4.9); POTASSIUM 4.4 MMOL/L (3.5-5.1); SODIUM 150 MMOL/L (136-145)
[2020-04-03] MEDS: Lactulose 20gm/30ml UDC ORAL SCH ×3 (09:32→18:28)
[2020-04-03] MEDS: Enoxaparin 40mg Inj SUBQ SCH (09:32)
[2020-04-03] MEDS: Pantoprazole Inj IVP SCH ×2 (09:33→21:07)
[2020-04-03] MEDS: Vitamin D 1000 units Tab ORAL SCH (09:33)
--- NOTE | 2020-04-03 09:57 | NUR ---
CASE MANAGEMENT:REVIEW 04/03/20 SI: COVID PNA. UTI. RESP FAILURE~INTUBATED 98.5 61 18 99/63 93% ON VENT SUPPORT W/60% FIO2 H/H-9.5/30.2 NA+150 BUN+40 IS: LEVOPHED GTT FENTANYL GTT IV LASIX QD IV MEROPENEM Q8HRS IV PROTONIX Q12 IV MICAFUNGIN Q24 IV SOLUMEDROL Q8HRS LOVENOX SQ QD : ICU STATUS
--- NOTE | 2020-04-03 10:27 | NUR ---
RD ASSESSMENT & RECOMMENDATIONS SEE CARE ACTIVITY FOR COMPLETE ASSESSMENT DAILY ESTIMATED NEEDS: Needs based on Critical care, wound 81kg abw 22-28 kcals/kg 2755-3170 total kcals 1.25-1.5 g protein/kg 101-122 g total protein 25-30 mL/kg 5732-3865 total fluid mLs NUTRITION DIAGNOSIS: * Inadequate oral intake R/T clinical and respiratory status as evidenced by COVID-19 ++, on continuous BIPAP, prolonged meal refusals, pt is now on TPN, pt is now orally intubated (03/28), now on OGT feeds. * Decreased sodium and fat needs r/t HTN and obesity as evidenced by pt w/ cardiac history, elev BP (159/98-> now improved, on BP meds and diuretics), BMI >30, obese per guidelines. (INACTIVE) CURRENT TF: NOW ORDERED-> Glucerna 1.5 goal of 50 + Prosource BID ENTERAL NUTRITION RECOMMENDATIONS: Glucerna 1.5 @ 50ml/hr x 24 hrs + Prosource 1pkt BID to provide 1200ml, 1800kcal, 99g prot, 926ml free water * Maintain current TF @ goal as tolerated * Con't Prosource 1pkt BID (additional 22g prot) to better meet est prot needs. PARENTERAL NUTRITION RECOMMENDATIONS: Now off TPN, on OGT feeds. ADDITIONAL RECOMMENDATIONS: 1) Maintain calibrated bedscale wts 2) Obtain HgA1C for eval 3) Pt now w/ rectal tube-> pt on Lactulose TID, continue DC Lactulose 4) Off tpn, LFT's trending down. 5) Monitor lytes, replete as needed 6) Monitor BGs- improved, now off Levemir .
--- NOTE | 2020-04-03 12:23 | General Progress Note ---
Subjective ROS Limited/Unobtainable: No Allergies: Coded Allergies: No Known Allergies (Unverified , 02/05/20) Objective Last 24 Hour Vital Signs Date Time Temp Pulse Resp B/P (MAP) Pulse Ox O2 Delivery O2 Flow Rate FiO2 04/03/20 11:09 71 18 60 04/03/20 09:20 61 18 60 04/03/20 07:05 70 18 60 04/03/20 07:00 66 18 99/63 (75) 93 04/03/20 07:00 18 Mechanical Ventilator 60 04/03/20 07:00 18 99/63 Mechanical Ventilator 60 04/03/20 06:00 18 Mechanical Ventilator 60 04/03/20 06:00 18 100/62 Mechanical Ventilator 60 04/03/20 06:00 71 18 100/62 (75) 93 04/03/20 05:46 18 104/62 Mechanical Ventilator 60 04/03/20 05:00 70 18 99/62 (74) 94 04/03/20 05:00 18 Mechanical Ventilator 60 04/03/20 05:00 18 99/62 Mechanical Ventilator 60 04/03/20 04:00 Mechanical Ventilator 04/03/20 04:00 75 04/03/20 04:00 18 Mechanical Ventilator 60 04/03/20 04:00 18 103/63 Mechanical Ventilator 60 04/03/20 04:00 60 04/03/20 04:00 98.5 75 18 103/63 (76) 94 04/03/20 03:05 76 18 60 04/03/20 03:00 78 18 98/59 (72) 91 04/03/20 03:00 18 Mechanical Ventilator 65 04/03/20 03:00 18 98/59 Mechanical Ventilator 65 04/03/20 02:00 83 18 111/66 (81) 93 04/03/20 02:00 18 Mechanical Ventilator 65 04/03/20 02:00 18 111/66 Mechanical Ventilator 65 04/03/20 01:00 18 Mechanical Ventilator 65 04/03/20 01:00 18 98/58 Mechanical Ventilator 65 04/03/20 01:00 75 18 98/58 (71) 95 04/03/20 00:00 72 18 102/62 (75) 94 04/03/20 00:00 Mechanical Ventilator 04/03/20 00:00 18 Mechanical Ventilator 65 04/03/20 00:00 18 102/62 Mechanical Ventilator 65 04/03/20 00:00 72 2 00:00 65 04/02/20 23:05 74 18 60 04/02/20 23:00 18 Mechanical Ventilator 65 04/02/20 23:00 18 97/62 Mechanical Ventilator 65 04/02/20 23:00 71 18 97/62 (74) 94 04/02/20 22:28 18 Mechanical Ventilator 65 04/02/20 22:00 18 Mechanical Ventilator 65 04/02/20 22:00 18 95/59 Mechanical Ventilator 65 04/02/20 22:00 77 18 95/59 (71) 96 04/02/20 21:19 18 93/59 Mechanical Ventilator 60 04/02/20 21:00 73 18 94/59 (71) 95 04/02/20 21:00 18 Mechanical Ventilator 60 04/02/20 21:00 18 94/59 Mechanical Ventilator 60 04/02/20 20:00 60 04/02/20 20:00 Mechanical Ventilator 04/02/20 20:00 99.6 75 18 94/62 (73) 94 04/02/20 20:00 18 Mechanical Ventilator 60 04/02/20 20:00 18 94/62 Mechanical Ventilator 60 04/02/20 19:57 73 04/02/20 19:05 74 18 60 04/02/20 19:00 85 18 103/64 (77) 91 04/02/20 19:00 18 Mechanical Ventilator 60 04/02/20 19:00 18 97/58 Mechanical Ventilator 60 04/02/20 18:30 81 18 106/66 (79) 99 04/02/20 18:00 18 Mechanical Ventilator 60 04/02/20 18:00 18 120/70 Mechanical Ventilator 60 04/02/20 18:00 83 18 105/67 (80) 93 04/02/20 17:34 87 18 60 04/02/20 17:00 18 Mechanical Ventilator 60 04/02/20 17:00 18 119/75 Mechanical Ventilator 60 04/02/20 17:00 98.3 91 17 120/75 (90) 92 04/02/20 16:00 81 18 100/66 (77) 94 04/02/20 16:00 82 04/02/20 16:00 60 04/02/20 16:00 18 Mechanical Ventilator 60 04/02/20 16:00 18 120/70 Mechanical Ventilator 60 04/02/20 16:00 Mechanical Ventilator 04/02/20 15:25 89 18 60 04/02/20 15:00 18 Mechanical Ventilator 60 04/02/20 15:00 18 104/66 Mechanical Ventilator 60 04/02/20 15:00 85 18 103/66 (78) 96 04/02/20 14:30 84 18 92/59 (70) 90 04/02/20 14:00 18 Mechanical Ventilator 50 04/02/20 14:00 18 94/62 Mechanical Ventilator 50 04/02/20 14:00 82 18 96/62 (73) 91 04/02/20 13:30 81 18 98/62 (74) 90 04/02/20 13:14 79 18 60 04/02/20 13:10 99.3 04/02/20 13:00 18 Mechanical Ventilator 50 04/02/20 13:00 18 96/62 Mechanical Ventilator 50 04/02/20 13:00 85 18 98/62 (74) 90 04/02/20 12:40 18 Mechanical Ventilator 95.0 70 04/02/20 12:40 18 Mechanical Ventilator 70 04/02/20 12:39 18 104/66 Mechanical Ventilator 95.0 70 04/02/20 12:30 79 18 104/66 (79) 98 Intake and Output 04/02/20 04/03/20 19:00 07:00 Intake Total 1629.048 ml 1342.4187 ml Output Total 830 ml 1050 ml Balance 799.048 ml 292.4187 ml Free Water 380 ml 150 ml IV Total 929.048 ml 732.4187 ml Tube Feeding 320 ml 400 ml Other 60 ml Output Urine Total 430 ml 650 ml Stool Total 400 ml 400 ml Laboratory Tests 04/02/20 23:20: POC Whole Blood Glucose 133H 04/03/20 05:22: White Blood Count 6.7, Red Blood Count 3.34L, Hemoglobin 9.5L, Hematocrit 30.2L, Mean Corpuscular Volume 91, Mean Corpuscular Hemoglobin 28.6, Mean Corpuscular Hemoglobin Concent 31.6L, Red Cell Distribution Width 15.2H, Platelet Count 212, Mean Platelet Volume 6.4L, Neutrophils (%) (Auto) , Lymphocytes (%) (Auto) , Monocytes (%) (Auto) , Eosinophils (%) (Auto) , Basophils (%) (Auto) , Differential Total Cells Counted 100, Neutrophils % (Manual) 89H, Lymphocytes % (Manual) 5L, Monocytes % (Manual) 5, Eosinophils % (Manual) 1, Basophils % (Manual) 0, Band Neutrophils 0, Platelet Estimate Adequate, Platelet Morphology Normal, Hypochromasia 1+, Anisocytosis 1+, Stomatocytes Occasional, Sodium Level 150H, Potassium Level 4.4, Chloride Level 112H, Carbon Dioxide Level 33H, Anion Gap 5, Blood Urea Nitrogen 40H, Creatinine 0.6, Estimat Glomerular Filtration Rate > 60, Glucose Level 155H, Uric Acid 3.0, Calcium Level 8.4L, Phosphorus Level 3.1, Magnesium Level 2.7H, Total Bilirubin 0.5, Aspartate Amino Transf (A ST/SGOT) 41H, Alanine Aminotransferase (ALT/SGPT) 130H, Alkaline Phosphatase 137H, C-Reactive Protein, Quantitative < 0.4, Pro-B-Type Natriuretic Peptide 338H, Total Protein 5.1L, Albumin 2.1L, Globulin 3.0, Albumin/Globulin Ratio 0.7L Height (Feet): 5 Height (Inches): 10.00 Weight (Pounds): 240 General Appearance: lethargic EENT: normal ENT inspection Neck: supple Cardiovascular: tachycardia Respiratory/Chest: decreased breath sounds Abdomen: hypoactive bowel sounds Extremities: non-tender Assessment/Plan Status: stable, progressing Assessment/Plan: hep c + but neg RNA intubated OGTF reglan 10 mg will fu Da Quintero MD Apr 03, 2020 12:23
--- NOTE | 2020-04-03 12:44 | Nephrology Progress Note ---
Assessment/Plan Problem List: (1) Dehydration (2) Electrolyte imbalance (3) COVID-19 virus infection (4) Pneumonia (5) DMII (diabetes mellitus, type 2) (6) Protein malnutrition Assessment Azotemia, hypernatremia Hypoalbuminemia Staff Otilia bacteremia COVID-19 isolation, pneumonia, bilateral infiltrate Hypertension Diabetes mellitus History of smoking Plan April 03: Intubated. On ventilator. Full code. Labs reviewed. Serum sodium 150 unchanged. Continue to monitor renal parameters. Continue per pulmonary and ID. April 02: Full code. On ventilator. Discussed with RN. Serum sodium slightly higher. Will cut down on IV Lasix. Continue per consultants. Continue to monitor renal parameters and electrolytes. April 01: Full code. Remains on ventilator. Labs reviewed. Stable from renal standpoint of view. Continue per consultants. March 31: Full code . Remains intubated on ventilator. Labs reviewed. Patient appears toxic. Discussed with RN. Maintenance IV discontinued. Medication list reviewed. Blood pressure medication stopped due to low blood pressure. Levemir insulin stopped. Continue monitor blood sugar and sliding scale insulin. March 30: Full code. On ventilator. Labs reviewed. Clonidine patch dose increased. Lasix increased. 3% saline 1 time ordered. Continue to monitor el ectrolytes and renal parameters. March 29: Remains full code. On mechanical ventilation. On tube feeding. Will DC TPN. Will start on maintenance IV fluid. Continue to monitor renal parameters. March 28: On BiPAP. Full code. On TPN. Labs reviewed. Discussed with pharmacy. Continue as is. Watch serum potassium. March 27: Remains on BiPAP. No chemistry panel done today. Full code. On TPN. Will check lab tomorrow. March 26: Remains on BiPAP. Remains on TPN. Labs reviewed. Electrolytes and chemistries within normal limits. Continue as is. March 25: Remains on TPN. Labs reviewed. Discussed with pharmacy. Change IV Protonix to p.o. Continue 3% saline infusion with Lasix. Patient full code. March 24: Continue to be on TPN. Labs are reviewed. Aim to collect electrolytes. Discussed with pharmacy. Continue current consultants. March 23: Continues to be on TPN. Labs reviewed. Electrolytes and chemistries all acceptable. Discussed with pharmacy. Continue current management. March 22: On TPN. Labs reviewed. Low sodium noted. 3% saline to be continued. Continue to monitor electrolytes. Discussed with pharmacy. March 21: On TPN. Labs reviewed. Continue 3% saline and Lasix for mild hyponatremia. Continue TPN as these. Discussed with pharmacy. March 20: Remains on TPN. Labs reviewed. Serum sodium higher on IV Lasix and 3% saline infusion. Continue TPN as is. Continue to monitor renal parameters and electrolytes. Discussed with Dr. Mata March 19: Remains on TPN. Labs reviewed. Serum sodium 128. Will give 3% saline with IV Lasix. Continue to monitor electrolytes. No change in TPN c omposition. Discussed with pharmacy. March 18: Remains on TPN. Labs reviewed. Discussed with pharmacist. Will give 3 doses of IV Lasix 20 mg every 8 hours. Continue to monitor serum sodium electrolytes uric acid. White blood cells down. Continue per consultants. March 17: On TPN. Labs reviewed. Discussed with pharmacist. Sodium content increase. Continue to monitor CMP. Patient continues to have leukocytosis. March 16: On TPN. Labs reviewed. Discussed with pharmacist. Appropriate changes made. Continue to monitor electrolytes. March 15: Remains on TPN. Labs reviewed. Discussed with pharmacist. Continue per current management. March 14: Remains on TPN. Labs reviewed, stable. Vitamin D level low, replacement ordered. Continue to monitor electrolytes and renal parameters. March 13: Patient remains on TPN. Discussed with pharmacist. TPN's sodium content adjusted. Labs reviewed. Continue to monitor electrolytes. Blood pressure remains stable. Continue per consultants. March 12: Patient on TPN. Labs reviewed. CPK remains elevated. Abnormal electrolytes and high blood sugar discussed with pharmacist and TPN adjusted. Continue to monitor labs. Oral Protonix added. Ibuprofen discontinued. Can continue to monitor electrolytes and chemistries. Levemir for high blood sugar added. March 11: Patient on TPN. Labs as of 11:15 AM is still pending. Continue per current treatment plan. Will check labs and adjust TPN as needed. Continue per consultants. March 10: Patient on TPN. Labs reviewed. Electrolytes overall stable. CPK is elevated. Will monitor electrolyte, CPK level, lipid panel. Continue per consultants. Discussed with pharmacist. Discussed with RN. Nutritional evaluation noted. Previously: D5W 100 cc an hour Monitor electrolytes renal parameters TPN and Intralipid ordered Will follow Continue per consultants Dietary consult requested Subjective ROS Limited/Unobtainable: Yes Objective Objective Last 24 Hour Vital Signs Date Time Temp Pulse Resp B/P (MAP) Pulse Ox O2 Delivery O2 Flow Rate FiO2 04/03/20 11:09 71 18 60 04/03/20 09:20 61 18 60 04/03/20 07:05 70 18 60 04/03/20 07:00 66 18 99/63 (75) 93 04/03/20 07:00 18 Mechanical Ventilator 60 04/03/20 07:00 18 99/63 Mechanical Ventilator 60 04/03/20 06:00 18 Mechanical Ventilator 60 04/03/20 06:00 18 100/62 Mechanical Ventilator 60 04/03/20 06:00 71 18 100/62 (75) 93 04/03/20 05:46 18 104/62 Mechanical Ventilator 60 04/03/20 05:00 70 18 99/62 (74) 94 04/03/20 05:00 18 Mechanical Ventilator 60 04/03/20 05:00 18 99/62 Mechanical Ventilator 60 04/03/20 04:00 Mechanical Ventilator 04/03/20 04:00 75 04/03/20 04:00 18 Mechanical Ventilator 60 04/03/20 04:00 18 103/63 Mechanical Ventilator 60 04/03/20 04:00 60 04/03/20 04:00 98.5 75 18 103/63 (76) 94 04/03/20 03:05 76 18 60 04/03/20 03:00 78 18 98/59 (72) 91 04/03/20 03:00 18 Mechanical Ventilator 65 04/03/20 03:00 18 98/59 Mechanical Ventilator 65 04/03/20 02:00 83 18 111/66 (81) 93 04/03/20 02:00 18 Mechanical Ventilator 65 04/03/20 02:00 18 111/66 Mechanical Ventilator 65 04/03/20 01:00 18 Mechanical Ventilator 65 04/03/20 01:00 18 98/58 Mechanical Ventilator 65 04/03/20 01:00 75 18 98/58 (71) 95 04/03/20 00:00 72 18 102/62 (75) 94 04/03/20 00:00 Mechanical Ventilator 04/03/20 00:00 18 Mechanical Ventilator 65 04/03/20 00:00 18 102/62 Mechanical Ventilator 65 04/03/20 00:00 72 04/03/20 00:00 65 04/02/20 23:05 74 18 60 04/02/20 23:00 18 Mechanical Ventilator 65 04/02/20 23:00 18 97/62 Mechanical Ventilator 65 04/02/20 23:00 71 18 97/62 (74) 94 04/02/20 22:28 18 Mechanical Ventilator 65 04/02/20 22:00 18 Mechanical Ventilator 65 04/02/20 22:00 18 95/59 Mechanical Ventilator 65 04/02/20 22:00 77 18 95/59 (71) 96 04/02/20 21:19 18 93/59 Mechanical Ventilator 60 04/02/20 21:00 73 18 94/59 (71) 95 04/02/20 21:00 18 Mechanical Ventilator 60 04/02/20 21:00 18 94/59 Mechanical Ventilator 60 04/02/20 20:00 60 04/02/20 20:00 Mechanical Ventilator 04/02/20 20:00 99.6 75 18 94/62 (73) 94 04/02/20 20:00 18 Mechanical Ventilator 60 04/02/20 20:00 18 94/62 Mechanical Ventilator 60 04/02/20 19:57 73 04/02/20 19:05 74 18 60 04/02/20 19:00 85 18 103/64 (77) 91 04/02/20 19:00 18 Mechanical Ventilator 60 04/02/20 19:00 18 97/58 Mechanical Ventilator 60 04/02/20 18:30 81 18 106/66 (79) 99 04/02/20 18:00 18 Mechanical Ventilator 60 04/02/20 18:00 18 120/70 Mechanical Ventilator 60 04/02/20 18:00 83 18 105/67 (80) 93 04/02/20 17:34 87 18 60 04/02/20 17:00 18 Mechanical Ventilator 60 04/02/20 17:00 18 119/75 Mechanical Ventilator 60 04/02/20 17:00 98.3 91 17 120/75 (90) 92 04/02/20 16:00 81 18 100/66 (77) 94 04/02/20 16:00 82 04/02/20 16:00 60 04/02/20 16:00 18 Mechanical Ventilator 60 04/02/20 16:00 18 120/70 Mechanical Ventilator 60 04/02/20 16:00 Mechanical Ventilator 04/02/20 15:25 89 18 60 04/02/20 15:00 18 Mechanical Ventilator 60 04/02/20 15:00 18 104/66 Mechanical Ventilator 60 04/02/20 15:00 85 18 103/66 (78) 96 04/02/20 14:30 84 18 92/59 (70) 90 04/02/20 14:00 18 Mechanical Ventilator 50 04/02/20 14:00 18 94/62 Mechanical Ventilator 50 04/02/20 14:00 82 18 96/62 (73) 91 04/02/20 13:30 81 18 98/62 (74) 90 04/02/20 13:14 79 18 60 04/02/20 13:10 99.3 04/02/20 13:00 18 Mechanical Ventilator 50 04/02/20 13:00 18 96/62 Mechanical Ventilator 50 04/02/20 13:00 85 18 98/62 (74) 90 Intake and Output 04/02/20 04/03/20 19:00 07:00 Intake Total 1629.048 ml 1342.4187 ml Output Total 830 ml 1050 ml Balance 799.048 ml 292.4187 ml Free Water 380 ml 150 ml IV Total 929.048 ml 732.4187 ml Tube Feeding 320 ml 400 ml Other 60 ml Output Urine Total 430 ml 650 ml Stool Total 400 ml 400 ml Current Medications Medications (Trade) Dose Ordered Sig/Dennis Route PRN Reason Start Time Stop Time Status Last Admin Dose Admin Acetaminophen (Tylenol) 650 mg Q4H PRN ORAL Mild Pain (Pain Scale 1-3) 03/09/20 12:00 04/08/20 11:59 03/31/20 20:08 Bisacodyl (Dulcolax) 10 mg Q12H PRN RECTAL Constipation 03/18/20 16:45 06/16/20 16:44 Chlorhexidine Gluconate (Marlen-Hex 2%) 1 applic DAILY@1999 TOPIC 03/30/20 20:00 06/28/20 19:59 04/02/20 19:30 Dextrose (Dextrose 50%) 25 ml Q30M PRN IV Hypoglycemia 03/29/20 20:45 06/27/20 20:44 Dextrose (Dextrose 50%) 50 ml Q30M PRN IV Hypoglycemia 03/29/20 20:45 06/27/20 20:44 Enoxaparin Sodium (Lovenox) 40 mg DAILY SUBQ 03/13/20 12:00 06/11/20 11:59 04/03/20 09:32 Fentanyl Citrate 250 ml @ 1 mls/hr Q24H IV 03/30/20 19:50 04/04/20 19:30 04/03/20 05:46 Furosemide (Lasix) 20 mg DAILY IV 04/03/20 09:00 04/18/20 13:59 04/03/20 09:32 Hydralazine HCl (Apresoline) 10 mg Q4H PRN IV For High Blood Pressure 03/30/20 12:15 06/28/20 12:14 03/31/20 06:13 Insulin Aspart (NovoLOG) Q6HR SUBQ 03/30/20 00:00 06/28/20 00:00 04/03/20 06:00 Labetalol HCl (Normodyne) 10 mg Q4H PRN IV sbp greater tahtn 160 03/28/20 17:30 04/27/20 17:29 Lactulose (Cephulac) 20 gm THREE TIMES A DAY ORAL 03/08/20 13:00 04/07/20 12:59 04/03/20 09:32 Meropenem 1 gm/ Sodium Chloride 100 ml @ 200 mls/hr Q8HR IVPB 04/02/20 22:00 04/07/20 21:59 04/03/20 05:46 Methylprednisolone Sodium Succinate (Solu-MEDROL) 40 mg EVERY 8 HOURS IVP 03/22/20 14:00 06/20/20 13:59 04/03/20 05:46 Metoclopramide HCl (Reglan) 10 mg Q6H IVP 03/30/20 15:00 04/29/20 14:59 04/03/20 09:33 Micafungin Sodium 100 mg/Sodium Chloride 100 ml @ 100 mls/hr Q24H IVPB 03/29/20 15:00 04/05/20 14:59 04/02/20 14:28 Midazolam HCl 100 ml @ 0 mls/hr Q24H PRN IV Agitation 04/02/20 10:03 04/04/20 10:02 04/02/20 22:28 Norepinephrine Bitartrate 4 mg/ Sodium Chloride 250 ml @ 0 mls/hr Q24H PRN IV For hypotension 03/31/20 19:30 04/03/20 19:29 04/01/20 13:25 Pantoprazole (Protonix) 40 mg EVERY 12 HOURS IVP 04/01/20 21:00 05/01/20 20:59 04/03/20 09:33 Polyethylene Glycol (Miralax) 17 gm BEDTIME ORAL 03/08/20 21:00 04/07/20 20:59 04/02/20 20:32 Trimethoprim/ Sulfamethoxazole (Bactrim-DS) 1 tab Q24H ORAL 03/29/20 17:00 04/05/20 16:59 04/02/20 17:10 Vitamin D (Vitamin D) 5,000 unit DAILY ORAL 03/15/20 09:00 04/14/20 08:59 04/03/20 09:33 Laboratory Tests 04/02/20 23:20: POC Whole Blood Glucose 133H 04/03/20 05:22: White Blood Count 6.7, Red Blood Count 3.34L, Hemoglobin 9.5L, Hematocrit 30.2L, Mean Corpuscular Volume 91, Mean Corpuscular Hemoglobin 28.6, Mean Corpuscular Hemoglobin Concent 31.6L, Red Cell Distribution Width 15.2H, Platelet Count 212, Mean Platelet Volume 6.4L, Neutrophils (%) (Auto) , Lymphocytes (%) (Auto) , Monocytes (%) (Auto) , Eosinophils (%) (Auto) , Basophils (%) (Auto) , Differential Total Cells Counted 100, Neutrophils % (Manual) 89H, Lymphocytes % (Manual) 5L, Monocytes % (Manual) 5, Eosinophils % (Manual) 1, Basophils % (Manual) 0, Band Neutrophils 0, Platelet Estimate Adequate, Platelet Morphology Normal, Hypochromasia 1+, Anisocytosis 1+, Stomatocytes Occasional, Sodium Level 150H, Potassium Level 4.4, Chloride Level 112H, Carbon Dioxide Level 33H, Anion Gap 5, Blood Urea Nitrogen 40H, Creatinine 0.6, Estimat Glomerular Filtration Rate > 60, Glucose Level 155H, Uric Acid 3.0, Calcium Level 8.4L, Phosphorus Level 3.1, Magnesium Level 2.7H, Total Bilirubin 0.5, Aspartate Amino Transf (AST/SGOT) 41H, Alanine Aminotransferase (ALT/SGPT) 130H, Alkaline Phosphatase 137H, C-Reactive Protein, Quantitative < 0.4, Pro-B-Type Natriuretic Peptide 338H, Total Protein 5.1L, Albumin 2.1L, Globulin 3.0, Albumin/Globulin Ratio 0.7L Height (Feet): 5 Height (Inches): 10.00 Weight (Pounds): 240 General Appearance: no apparent distress Cardiovascular: normal rate Respiratory/Chest: decreased breath sounds Abdomen: distended Rubin Cooper MD Apr 03, 2020 12:44
[2020-04-03] MEDS ORDERED: Heparin1,000 units/500ml Premix(Conc:2 units/ml) INJ PRN (13:00)
[2020-04-03] MEDS ORDERED: Lidocaine 1% Plain 30 ml INJ PRN (13:00)
--- NOTE | 2020-04-03 15:29 | NUR ---
RADIOLOGY NOTE: RIGHT UPPER EXTREMITY PICC LINE PLACEMENT BY DR. ABELARDO BUTTERFIELD AT 1300 HRS. FA
--- NOTE | 2020-04-03 15:30 | Pulmonology Progress Note ---
Subjective ROS Limited/Unobtainable: Yes Interval Events: Intubated 03/28/20 Constitutional: Reports: other HEENT: Repors: no symptoms Respiratory: Reports: dry cough, shortness of breath Cardiovascular: Reports: no symptoms Gastrointestinal/Abdominal: Denies: nausea, vomiting, diarrhea Psychiatric: Reports: other Skin: Denies: rash Musculoskeletal: Reports: other Allergies: Coded Allergies: No Known Allergies (Unverified , 02/05/20) Objective Last 24 Hour Vital Signs Date Time Temp Pulse Resp B/P (MAP) Pulse Ox O2 Delivery O2 Flow Rate FiO2 04/03/20 15:00 18 141/73 Mechanical Ventilator 65 04/03/20 13:10 75 18 60 04/03/20 12:00 Mechanical Ventilator 04/03/20 11:09 71 18 60 04/03/20 09:20 61 18 60 04/03/20 08:00 Mechanical Ventilator 04/03/20 07:05 70 18 60 04/03/20 07:00 66 18 99/63 (75) 93 04/03/20 07:00 18 Mechanical Ventilator 60 04/03/20 07:00 18 99/63 Mechanical Ventilator 60 04/03/20 06:00 18 Mechanical Ventilator 60 04/03/20 06:00 18 100/62 Mechanical Ventilator 60 04/03/20 06:00 71 18 100/62 (75) 93 04/03/20 05:46 18 104/62 Mechanical Ventilator 60 04/03/20 05:00 70 18 99/62 (74) 94 04/03/20 05:00 18 Mechanical Ventilator 60 04/03/20 05:00 18 99/62 Mechanical Ventilator 60 04/03/20 04:00 Mechanical Ventilator 04/03/20 04:00 75 04/03/20 04:00 18 Mechanical Ventilator 60 04/03/20 04:00 18 103/63 Mechanical Ventilator 60 04/03/20 04:00 60 04/03/20 04:00 98.5 75 18 103/63 (76) 94 04/03/20 03:05 76 18 60 04/03/20 03:00 78 18 98/59 (72) 91 04/03/20 03:00 18 Mechanical Ventilator 65 04/03/20 03:00 18 98/59 Mechanical Ventilator 65 04/03/20 02:00 83 18 111/66 (81) 93 04/03/20 02:00 18 Mechanical Ventilator 65 04/03/20 02:00 18 111/66 Mechanical Ventilator 65 04/03/20 01:00 18 Mechanical Ventilator 65 04/03/20 01:00 18 98/58 Mechanical Ventilator 65 04/03/20 01:00 75 18 98/58 (71) 95 04/03/20 00:00 72 18 102/62 (75) 94 04/03/20 00:00 Mechanical Ventilator 04/03/20 00:00 18 Mechanical Ventilator 65 04/03/20 00:00 18 102/62 Mechanical Ventilator 65 04/03/20 00:00 72 04/03/20 00:00 65 04/02/20 23:05 74 18 60 04/02/20 23:00 18 Mechanical Ventilator 65 04/02/20 23:00 18 97/62 Mechanical Ventilator 65 04/02/20 23:00 71 18 97/62 (74) 94 04/02/20 22:28 18 Mechanical Ventilator 65 04/02/20 22:00 18 Mechanical Ventilator 65 04/02/20 22:00 18 95/59 Mechanical Ventilator 65 04/02/20 22:00 77 18 95/59 (71) 96 04/02/20 21:19 18 93/59 Mechanical Ventilator 60 04/02/20 21:00 73 18 94/59 (71) 95 04/02/20 21:00 18 Mechanical Ventilator 60 04/02/20 21:00 18 94/59 Mechanical Ventilator 60 04/02/20 20:00 60 04/02/20 20:00 Mechanical Ventilator 04/02/20 20:00 99.6 75 18 94/62 (73) 94 04/02/20 20:00 18 Mechanical Ventilator 60 04/02/20 20:00 18 94/62 Mechanical Ventilator 60 04/02/20 19:57 73 04/02/20 19:05 74 18 60 04/02/20 19:00 85 18 103/64 (77) 91 04/02/20 19:00 18 Mechanical Ventilator 60 04/02/20 19:00 18 97/58 Mechanical Ventilator 60 04/02/20 18:30 81 18 106/66 (79) 99 04/02/20 18:00 18 Mechanical Ventilator 60 04/02/20 18:00 18 120/70 Mechanical Ventilator 60 04/02/20 18:00 83 18 105/67 (80) 93 04/02/20 17:34 87 18 60 04/02/20 17:00 18 Mechanical Ventilator 60 04/02/20 17:00 18 119/75 Mechanical Ventilator 60 04/02/20 17:00 98.3 91 17 120/75 (90) 92 04/02/20 16:00 81 18 100/66 (77) 94 04/02/20 16:00 82 04/02/20 16:00 60 04/02/20 16:00 18 Mechanical Ventilator 60 04/02/20 16:00 18 120/70 Mechanical Ventilator 60 04/02/20 16:00 Mechanical Ventilator Intake and Output 04/02/20 04/03/20 19:00 07:00 Intake Total 1629.048 ml 1342.4187 ml Output Total 830 ml 1050 ml Balance 799.048 ml 292.4187 ml Free Water 380 ml 150 ml IV Total 929.048 ml 732.4187 ml Tube Feeding 320 ml 400 ml Other 60 ml Output Urine Total 430 ml 650 ml Stool Total 400 ml 400 ml General Appearance: WD/WN, no acute distress HEENT: normocephalic, atraumatic Respiratory: chest wall non-tender Cardiovascular: normal rate, regular rhythm Abdomen: normal bowel sounds, soft, non tender, other - obese Laboratory Tests 04/02/20 23:20: POC Whole Blood Glucose 133H 04/03/20 05:22: White Blood Count 6.7, Red Blood Count 3.34L, Hemoglobin 9.5L, Hematocrit 30.2L, Mean Corpuscular Volume 91, Mean Corpuscular Hemoglobin 28.6, Mean Corpuscular Hemoglobin Concent 31.6L, Red Cell Distribution Width 15.2H, Platelet Count 212, Mean Platelet Volume 6.4L, Neutrophils (%) (Auto) , Lymphocytes (%) (Auto) , Monocytes (%) (Auto) , Eosinophils (%) (Auto) , Basophils (%) (Auto) , Differential Total Cells Counted 100, Neutrophils % (Manual) 89H, Lymphocytes % (Manual) 5L, Monocytes % (Manual) 5, Eosinophils % (Manual) 1, Basophils % (Manu al) 0, Band Neutrophils 0, Platelet Estimate Adequate, Platelet Morphology Normal, Hypochromasia 1+, Anisocytosis 1+, Stomatocytes Occasional, Sodium Level 150H, Potassium Level 4.4, Chloride Level 112H, Carbon Dioxide Level 33H, Anion Gap 5, Blood Urea Nitrogen 40H, Creatinine 0.6, Estimat Glomerular Filtration Rate > 60, Glucose Level 155H, Uric Acid 3.0, Calcium Level 8.4L, Phosphorus Level 3.1, Magnesium Level 2.7H, Total Bilirubin 0.5, Aspartate Amino Transf (AST/SGOT) 41H, Alanine Aminotransferase (ALT/SGPT) 130H, Alkaline Phosphatase 137H, C-Reactive Protein, Quantitative < 0.4, Pro-B-Type Natriuretic Peptide 338H, Total Protein 5.1L, Albumin 2.1L, Globulin 3.0, Albumin/Globulin Ratio 0.7L Current Medications Medications (Trade) Dose Ordered Sig/Dennis Route PRN Reason Start Time Stop Time Status Last Admin Dose Admin Acetaminophen (Tylenol) 650 mg Q4H PRN ORAL Mild Pain (Pain Scale 1-3) 03/09/20 12:00 04/08/20 11:59 03/31/20 20:08 Bisacodyl (Dulcolax) 10 mg Q12H PRN RECTAL Constipation 03/18/20 16:45 06/16/20 16:44 Chlorhexidine Gluconate (Marlen-Hex 2%) 1 applic DAILY@2000 TOPIC 03/30/20 20:00 06/28/20 19:59 04/02/20 19:30 Dextrose (Dextrose 50%) 25 ml Q30M PRN IV Hypoglycemia 03/29/20 20:45 06/27/20 20:44 Dextrose (Dextrose 50%) 50 ml Q30M PRN IV Hypoglycemia 03/29/20 20:45 06/27/20 20:44 Enoxaparin Sodium (Lovenox) 40 mg DAILY SUBQ 03/13/20 12:00 06/11/20 11:59 04/03/20 09:32 Fentanyl Citrate 250 ml @ 1 mls/hr Q24H IV 03/30/20 19:50 04/04/20 19:30 04/03/20 15:00 Furosemide (Lasix) 20 mg DAILY IV 04/03/20 09:00 04/18/20 13:59 04/03/20 09:32 Heparin Sodium/ Sodium Chloride (Heparin 1000 units/500ml Premix) 1,000 unit ONCE PRN INJ radiology procedure 04/03/20 13:00 04/05/20 12:59 Hydralazine HCl (Apresoline) 10 mg Q4H PRN IV For High Blood Pressure 03/30/20 12:15 06/28/20 12:14 03/31/20 06:13 Insulin Aspart (NovoLOG) Q6HR SUBQ 03/30/20 00:00 06/28/20 00:00 04/03/20 06:00 Labetalol HCl (Normodyne) 10 mg Q4H PRN IV sbp greater tahtn 160 03/28/20 17:30 04/27/20 17:29 Lactulose (Cephulac) 20 gm THREE TIMES A DAY ORAL 03/08/20 13:00 04/07/20 12:59 04/03/20 09:32 Lidocaine HCl (Xylocaine 1% 30ml) 30 ml ONCE PRN INJ radiology procedure 04/03/20 13:00 04/05/20 12:59 Meropenem 1 gm/ Sodium Chloride 100 ml @ 200 mls/hr Q8HR IVPB 04/02/20 22:00 04/07/20 21:59 04/03/20 15:11 Methylprednisolone Sodium Succinate (Solu-MEDROL) 40 mg EVERY 8 HOURS IVP 03/22/20 14:00 06/20/20 13:59 04/03/20 15:10 Metoclopramide HCl (Reglan) 10 mg Q6H IVP 03/30/20 15:00 04/29/20 14:59 04/03/20 15:11 Micafungin Sodium 100 mg/Sodium Chloride 100 ml @ 100 mls/hr Q24H IVPB 03/29/20 15:00 04/05/20 14:59 04/03/20 15:12 Midazolam HCl 100 ml @ 0 mls/hr Q24H PRN IV Agitation 04/02/20 10:03 04/04/20 10:02 04/02/20 22:28 Norepinephrine Bitartrate 4 mg/ Sodium Chloride 250 ml @ 0 mls/hr Q24H PRN IV For hypotension 03/31/20 19:30 04/03/20 19:29 04/01/20 13:25 Pantoprazole (Protonix) 40 mg EVERY 12 HOURS IVP 04/01/20 21:00 05/01/20 20:59 04/03/20 09:33 Polyethylene Glycol (Miralax) 17 gm BEDTIME ORAL 03/08/20 21:00 04/07/20 20:59 04/02/20 20:32 Trimethoprim/ Sulfamethoxazole (Bactrim-DS) 1 tab Q24H ORAL 03/29/20 17:00 04/05/20 16:59 04/02/20 17:10 Vitamin D (Vitamin D) 5,000 unit DAILY ORAL 03/15/20 09:00 04/14/20 08:59 04/03/20 09:33 Assessment/Plan Assessment/Plan Assessment/Plan 1.COVID-19 pneumonia. - Completed specific therapies - On solumedrol 2. DVT ppx - on lovenox 3. Hypertension - no longer on meds - May need pressors 4. Leukocytosis; - ID following - On abx - Budding yeast on blood CS 5. Elevated LFT - positive Hep C; treated in the past with IF 6. Respiratory failure -Intubated 03/28/20 -Family aware - Prognosis grave - Increased Vt to 750; rate to 18 -On Fentanyl 7. Discussed with cardiology -No evidence for cardiac dysfunction or PE -tachycardic; will increase sedation 8. AMS -Has had a change in mental status -back on sedation Will request new PICC line and line holiday John Mata MD Apr 03, 2020 15:30
[2020-04-03] MEDS: Versed 50mg/NS 100ml 100 ML IV PRN ×3 (15:44→18:31)
--- NOTE | 2020-04-03 15:45 | Brief Operative Note ---
Immediate Post Operative Note Operative Note Pre-op Diagnosis: needs access Procedure: PICC Post-op Diagnosis: same as pre-op Surgeon: Pamela Jean Anesthesia: local Specimen: none Complications: none Fluids: none Implant(s) used?: No Homero Jean MD Apr 03, 2020 15:45
--- NOTE | 2020-04-03 16:07 | Diagnostic Imaging Report ---
Indications: Needs long-term IV access Technique: Procedure performed at bedside. Procedural timeout performed. Ultrasound confirms patent compressible right basilic vein. Total sterile technique, including sterile probe cover and sterile gel, sterile gloves, hand hygiene, hat, mask,, sterile gown, large sterile drape, and preparation with 2% chlorhexidine utilized. Local anesthesia with 1% lidocaine. Under real-time ultrasound guidance, puncture basilic vein using 21-gauge needle, passage 0.018 guidewire, exchange for 4 Ghanaian peel-away sheath. 4 Ghanaian Bard dual-lumen power PICC cut to 43 cm. It was inserted through the peel-away sheath. Peel-away sheath and guidewire removed. Catheter fixed to the skin. Both catheter ports aspirated and flushed. Patient tolerated procedure well, without immediate complication. Followup chest x-ray obtained, documents catheter tip position at the cavoatrial junction Impression: Successful bedside placement of right arm PICC under sonographic guidance, as described above.
[2020-04-03] MEDS: Bactrim-DS 1 tab ORAL SCH (18:28)
--- NOTE | 2020-04-03 19:30 | NUR ---
Report handed off to me. Assumed care of patient. Chart and labs reviewed. Pt stable.
--- NOTE | 2020-04-03 19:30 | Cardiology Progress Note ---
Assessment/Plan Assessment/Plan Acute covid 19 pneumonia hypoxemia infiltrate bilat bacteremia hypernatremia / hyponatremia mild abn lfts tachy post intubation fever fungemia hr is normal another picc line placed fox old one is still in place needs to removed? is sedated versed and fetanyl bp seems ok at the moment is off levo hypoxemia unlikely cardiac related off anticoagulation except for dvt ppx dose continue supportive care tube feeding echo reviewed last on 03/28 still shows normal lv function no valve pathology cxr from 03/31 noted no change still with bilat infiltrate again wbc improved previously has had higher diuretic to the point of hypernatremia to see if keeping dry would help his respiratory status but not successful tele reviewed sinus remains critically is on lower fio2 nwo 65% d/w rn diuretic per dr parekh in he setting of hypernatremia id addressing temp not much pulm secretion covid pcr negative , however considering that it took 3 tests to finally initially identify his covid infection i am not sure if we can trust Subjective ROS Limited/Unobtainable: Yes Subjective pt in covid 19 isolation intubated , responsive not communicative n the vent Objective Last 24 Hour Vital Signs Date Time Temp Pulse Resp B/P (MAP) Pulse Ox O2 Delivery O2 Flow Rate FiO2 04/03/20 19:23 84 18 60 04/03/20 18:31 18 Mechanical Ventilator 65 04/03/20 18:00 101.6 75 18 130/67 (88) 93 04/03/20 17:55 18 Mechanical Ventilator 65 04/03/20 17:12 74 18 60 04/03/20 17:00 75 18 133/69 (90) 92 04/03/20 16:00 85 04/03/20 16:00 60 04/03/20 16:00 79 18 136/67 (90) 92 04/03/20 16:00 Mechanical Ventilator 04/03/20 15:44 18 Mechanical Ventilator 65 04/03/20 15:05 68 18 60 04/03/20 15:00 74 18 115/63 (80) 91 04/03/20 15:00 18 141/73 Mechanical Ventilator 65 04/03/20 14:00 98.4 72 18 128/68 (88) 93 04/03/20 13:10 75 18 60 04/03/20 13:00 74 18 115/63 (80) 91 04/03/20 12:00 81 2/1/21 12:00 Mechanical Ventilator 04/03/20 12:00 60 04/03/20 12:00 70 18 107/67 (80) 92 04/03/20 11:09 71 18 60 04/03/20 11:00 70 18 109/64 (79) 92 04/03/20 10:00 68 18 106/65 (79) 94 04/03/20 09:20 61 18 60 04/03/20 09:00 98.6 64 18 95/59 (71) 93 04/03/20 08:00 63 18 93/61 (72) 93 04/03/20 08:00 Mechanical Ventilator 04/03/20 08:00 60 04/03/20 08:00 63 04/03/20 07:05 70 18 60 04/03/20 07:00 66 18 99/63 (75) 93 04/03/20 07:00 18 Mechanical Ventilator 60 04/03/20 07:00 18 99/63 Mechanical Ventilator 60 04/03/20 06:00 18 Mechanical Ventilator 60 04/03/20 06:00 18 100/62 Mechanical Ventilator 60 04/03/20 06:00 71 18 100/62 (75) 93 04/03/20 05:46 18 104/62 Mechanical Ventilator 60 04/03/20 05:00 70 18 99/62 (74) 94 04/03/20 05:00 18 Mechanical Ventilator 60 04/03/20 05:00 18 99/62 Mechanical Ventilator 60 04/03/20 04:00 Mechanical Ventilator 04/03/20 04:00 75 04/03/20 04:00 18 Mechanical Ventilator 60 04/03/20 04:00 18 103/63 Mechanical Ventilator 60 04/03/20 04:00 60 04/03/20 04:00 98.5 75 18 103/63 (76) 94 04/03/20 03:05 76 18 60 04/03/20 03:00 78 18 98/59 (72) 91 04/03/20 03:00 18 Mechanical Ventilator 65 04/03/20 03:00 18 98/59 Mechanical Ventilator 65 04/03/20 02:00 83 18 111/66 (81) 93 04/03/20 02:00 18 Mechanical Ventilator 65 04/03/20 02:00 18 111/66 Mechanical Ventilator 65 04/03/20 01:00 18 Mechanical Ventilator 65 04/03/20 01:00 18 98/58 Mechanical Ventilator 65 04/03/20 01:00 75 18 98/58 (71) 95 04/03/20 00:00 72 18 102/62 (75) 94 04/03/20 00:00 Mechanical Ventilator 04/03/20 00:00 18 Mechanical Ventilator 65 04/03/20 00:00 18 102/62 Mechanical Ventilator 65 04/03/20 00:00 72 04/03/20 00:00 65 04/02/20 23:05 74 18 60 04/02/20 23:00 18 Mechanical Ventilator 65 04/02/20 23:00 18 97/62 Mechanical Ventilator 65 04/02/20 23:00 71 18 97/62 (74) 94 04/02/20 22:28 18 Mechanical Ventilator 65 04/02/20 22:00 18 Mechanical Ventilator 65 04/02/20 22:00 18 95/59 Mechanical Ventilator 65 04/02/20 22:00 77 18 95/59 (71) 96 04/02/20 21:19 18 93/59 Mechanical Ventilator 60 04/02/20 21:00 73 18 94/59 (71) 95 04/02/20 21:00 18 Mechanical Ventilator 60 04/02/20 21:00 18 94/59 Mechanical Ventilator 60 04/02/20 20:00 60 04/02/20 20:00 Mechanical Ventilator 04/02/20 20:00 99.6 75 18 94/62 (73) 94 04/02/20 20:00 18 Mechanical Ventilator 60 04/02/20 20:00 18 94/62 Mechanical Ventilator 60 04/02/20 19:57 73 General Appearance: on vent, patient on isolation, isolation precautions, other - sedated Intake and Output 04/02/20 04/03/20 19:00 07:00 Intake Total 1629.048 ml 1342.4187 ml Output Total 830 ml 1050 ml Balance 799.048 ml 292.4187 ml Free Water 380 ml 150 ml IV Total 929.048 ml 732.4187 ml Tube Feeding 320 ml 400 ml Other 60 ml Output Urine Total 430 ml 650 ml Stool Total 400 ml 400 ml Laboratory Tests Test 04/02/20 23:20 04/03/20 05:22 POC Whole Blood Glucose 133 MG/DL (74-106) H White Blood Count 6.7 K/UL (4.8-10.8) Red Blood Count 3.34 M/UL (4.70-6.10) L Hemoglobin 9.5 G/DL (14.2-18.0) L Hematocrit 30.2 % (42.0-52.0) L Mean Corpuscular Volume 91 FL (80-99) Mean Corpuscular Hemoglobin 28.6 PG (27.0-31.0) Mean Corpuscular Hemoglobin Concent 31.6 G/DL (32.0-36.0) L Red Cell Distribution Width 15.2 % (11.6-14.8) H Platelet Count 212 K/UL (150-450) Mean Platelet Volume 6.4 FL (6.5-10.1) L Neutrophils (%) (Auto) % (45.0-75.0) Lymphocytes (%) (Auto) % (20.0-45.0) Monocytes (%) (Auto) % (1.0-10.0) Eosinophils (%) (Auto) % (0.0-3.0) Basophils (%) (Auto) % (0.0-2.0) Differential Total Cells Counted 100 Neutrophils % (Manual) 89 % (45-75) H Lymphocytes % (Manual) 5 % (20-45) L Monocytes % (Manual) 5 % (1-10) Eosinophils % (Manual) 1 % (0-3) Basophils % (Manual) 0 % (0-2) Band Neutrophils 0 % (0-8) Platelet Estimate Adequate Platelet Morphology Normal Hypochromasia 1+ Anisocytosis 1+ Stomatocytes Occasional Sodium Level 150 MMOL/L (136-145) H Potassium Level 4.4 MMOL/L (3.5-5.1) Chloride Level 112 MMOL/L (98-107) H Carbon Dioxide Level 33 MMOL/L (21-32) H Anion Gap 5 mmol/L (5-15) Blood Urea Nitrogen 40 mg/dL (7-18) H Creatinine 0.6 MG/DL (0.55-1.30) Estimat Glomerular Filtration Rate > 60 mL/min (>60) Glucose Level 155 MG/DL (74-106) H Uric Acid 3.0 MG/DL (2.6-7.2) Calcium Level 8.4 MG/DL (8.5-10.1) L Phosphorus Level 3.1 MG/DL (2.5-4.9) Magnesium Level 2.7 MG/DL (1.8-2.4) H Total Bilirubin 0.5 MG/DL (0.2-1.0) Aspartate Amino Transf (AST/SGOT) 41 U/L (15-37) H Alanine Aminotransferase (ALT/SGPT) 130 U/L (12-78) H Alkaline Phosphatase 137 U/L (46-116) H C-Reactive Protein, Quantitative < 0.4 mg/dL (0.00-0.90) Pro-B-Type Natriuretic Peptide 338 pg/mL (0-125) H Total Protein 5.1 G/DL (6.4-8.2) L Albumin 2.1 G/DL (3.4-5.0) L Globulin 3.0 g/dL Albumin/Globulin Ratio 0.7 (1.0-2.7) L Microbiology Date/Time Source Procedure Growth Status 04/02/20 16:35 Blood Blood Culture - Preliminary NO GROWTH AFTER 24 HOURS Resulted 04/02/20 16:35 Blood Blood Culture - Preliminary NO GROWTH AFTER 24 HOURS Resulted Objective pt in covid 19 isoaltion with acute infection Manan Awan MD Apr 03, 2020 19:30
[2020-04-03] MEDS: Dyna-Hex 2% Top Sol 2oz TOPIC SCH (20:00)
--- NOTE | 2020-04-03 20:00 | NUR ---
Assessment completed, see spreadsheet for details. Patient temperature has decreased some, but remains febrile. Patient stable, will continue to monitor. Repositioned patient.
[2020-04-03] MEDS: Miralax 17gm pkt ORAL SCH (21:07)
--- NOTE | 2020-04-03 22:00 | NUR ---
Patient repositioned. medications administered. Stable, will continue to monitor.
[2020-04-04] VITALS (67 sets, daily range): BP systolic 99–160; BP diastolic 58–89
--- NOTE | 2020-04-04 | NUR ---
Patient repositioned, bathed, cooling blanket placed, sugar checked, tylenol administered for fever of 101.7. Borderline hourly urine output. Placed rectal temperature probe for continuous temperature monitoring due to fevers. Will continue to monitor.
--- NOTE | 2020-04-04 02:00 | NUR ---
Patient remains febrile, but improving on cooling blanket. Tube feedings resumed per orders as residual is less than 100ml. Patient repositioned. Increased FiO2 to 70% on vent due to desaturation sustained in 88-89% range. Notified [employer] ASSOCIATE Betty. Replaced linen and chux. Will continue to monitor.
[2020-04-04] MEDS: fentaNYL 2500mcg/NS 250ml 250 ML IV SCH ×5 (02:50→20:27)
[2020-04-04] MEDS: Versed 50mg/NS 100ml 100 ML IV PRN (02:52)
[2020-04-04] MEDS: Metoclopramide 10mg/2ml Inj IVP SCH ×4 (03:09→20:59)
--- NOTE | 2020-04-04 04:00 | NUR ---
Patient temperature decreasing on cooling blanket, now at 100.6. Repositioned patient. Assessment completed, see spreadsheet for details. Urine output remains borderline @~30ml/hour. Tolerating tube feeds at this point. Patient aroused to voice and followed command to "shake your head if you can hear me", patient shook head "yes". No other commands were followed at this time. Will continue to monitor patient.
[2020-04-04 05:27] LABS: HEMATOCRIT 31.8 % (42.0-52.0); HEMOGLOBIN 9.8 G/DL (14.2-18.0); MEAN CORPUSCULAR VOLUME 91 FL (80-99); PLATELET COUNT 229 K/UL (150-450); WHITE BLOOD COUNT 7.3 K/UL (4.8-10.8)
[2020-04-04] MEDS: NovoLOG Insulin Flexpen SUBQ SCH ×5 (06:00→23:38)
[2020-04-04 06:05] LABS: ALANINE AMINOTRANSFERASE 184 U/L (12-78); ALBUMIN 2.2 G/DL (3.4-5.0); ALBUMIN/GLOBULIN RATIO 0.7 (1.0-2.7); ALKALINE PHOSPHATASE 125 U/L (46-116); ANION GAP 4 mmol/L (5-15); ASPARTATE AMINO TRANSFERASE 78 U/L (15-37); BILIRUBIN,TOTAL 1.1 MG/DL (0.2-1.0); BLOOD UREA NITROGEN 40 mg/dL (7-18); CALCIUM 8.4 MG/DL (8.5-10.1); CARBON DIOXIDE 33 MMOL/L (21-32); CHLORIDE 113 MMOL/L (98-107); CREATININE 0.7 MG/DL (0.55-1.30); POTASSIUM 4.3 MMOL/L (3.5-5.1); SODIUM 150 MMOL/L (136-145)
[2020-04-04] MEDS: Solu-MEDROL 40mg Inj IVP SCH ×3 (06:05→22:14)
--- NOTE | 2020-04-04 06:19 | NUR ---
Patient remains stable. Temperature continues to decrease. Currently at 99.7 via rectal temp and on cooling blanket. Patient continues to have low urine output. Liver enzymes bumped this am. Would recommend day shift RN ask provider if Albumin may be helpful in this patient. BUM elevated, creatinine WNL. Patient repositioned, total I&O completed for shift. Rectal tube continues to put out elevated volumes (total of 375ml overnight). BG WNL this am, no coverage required. Patient continues to open eyes to voice and has consistently followed command with nodding of head appropriately, and turns head to look at you when asked. No other commands followed. Will continue to monitor patient.
[2020-04-04 06:25] LABS: BILIRUBIN,DIRECT 0.6 MG/DL (0.0-0.3)
--- NOTE | 2020-04-04 07:20 | NUR ---
Handed care off to PRIYANKA Nunn. Patient stable.
--- NOTE | 2020-04-04 07:21 | NUR ---
NURSE NOTES: Received patient in bed. Lightly sedated, RASS -2 noted. SR with HR of 62 noted. ETT to vent, AC 18/750/70%/PEEP 8, saturating at 95% at this time. OGT in place, with tube feeding ongoing per order.. Brownlee cath inplace. ALBERT double lumen PICC line inplace, fentanyl at 300mcg at this time, Versed at 5mg/hr for sedation. Bed in the lowest position. Side rails up x3. Will continue to monitor. Airborne isolation observed.
--- NOTE | 2020-04-04 08:34 | General Progress Note ---
Subjective ROS Limited/Unobtainable: No Allergies: Coded Allergies: No Known Allergies (Unverified , 02/05/20) Objective Last 24 Hour Vital Signs Date Time Temp Pulse Resp B/P (MAP) Pulse Ox O2 Delivery O2 Flow Rate FiO2 04/04/20 08:00 64 18 108/68 (81) 94 04/04/20 08:00 70 04/04/20 08:00 Mechanical Ventilator 04/04/20 07:30 65 18 113/68 (83) 94 04/04/20 07:00 75 18 101/61 (74) 95 04/04/20 06:45 98.9 69 18 106/67 (80) 94 04/04/20 06:30 72 18 113/66 (82) 94 04/04/20 06:15 76 18 111/64 (80) 95 04/04/20 06:00 18 Mechanical Ventilator 70 04/04/20 06:00 18 109/67 Mechanical Ventilator 70 04/04/20 06:00 78 18 109/67 (81) 95 04/04/20 05:45 99.7 77 18 126/79 (95) 95 04/04/20 05:30 81 18 133/84 (100) 94 04/04/20 05:15 85 18 127/76 (93) 94 04/04/20 05:09 85 18 70 04/04/20 05:00 18 Mechanical Ventilator 70 04/04/20 05:00 18 127/76 Mechanical Ventilator 70 04/04/20 05:00 90 18 122/73 (89) 95 04/04/20 04:45 88 18 113/61 (78) 95 04/04/20 04:30 83 18 118/65 (82) 95 04/04/20 04:15 78 18 124/79 (94) 93 04/04/20 04:08 70 04/04/20 04:00 18 Mechanical Ventilator 70 04/04/20 04:00 18 124/79 Mechanical Ventilator 70 04/04/20 04:00 Mechanical Ventilator 04/04/20 04:00 101.6 79 18 114/69 (84) 93 04/04/20 03:45 80 18 120/72 (88) 92 04/04/20 03:35 79 04/04/20 03:30 84 18 121/69 (86) 92 04/04/20 03:15 83 18 116/70 (85) 91 04/04/20 03:00 89 18 126/82 (97) 96 04/04/20 03:00 18 Mechanical Ventilator 70 04/04/20 03:00 18 126/82 Mechanical Ventilator 70 04/04/20 02:53 86 18 70 04/04/20 02:52 18 Mechanical Ventilator 70 04/04/20 02:50 18 130/75 Mechanical Ventilator 70 04/04/20 02:45 89 18 119/68 (85) 93 04/04/20 02:30 102.1 98 18 128/72 (90) 92 04/04/20 02:28 100 18 138/75 (96) 92 04/04/20 02:25 103 18 130/75 (93) 92 04/04/20 02:15 100 18 88 04/04/20 02:00 18 Mechanical Ventilator 70 04/04/20 02:00 18 130/75 Mechanical Ventilator 70 04/04/20 02:00 104 19 153/78 (103) 91 04/04/20 01:46 102.7 04/04/20 01:45 90 18 129/67 (87) 94 04/04/20 01:30 93 18 139/66 (90) 94 04/04/20 01:15 96 18 131/69 (89) 94 04/04/20 01:03 84 18 60 04/04/20 01:00 18 Mechanical Ventilator 65 04/04/20 01:00 18 131/69 Mechanical Ventilator 65 04/04/20 01:00 99 18 135/71 (92) 93 04/04/20 01:00 99 18 135/71 (92) 93 04/04/20 00:45 100 18 155/74 (101) 93 04/04/20 00:30 106 19 160/74 (102) 94 04/04/20 00:15 89 18 139/74 (95) 94 04/04/20 00:15 89 18 139/74 (95) 94 04/04/20 00:00 65 04/04/20 00:00 87 18 141/65 (90) 94 04/04/20 00:00 Mechanical Ventilator 04/04/20 00:00 18 Mechanical Ventilator 65 04/04/20 00:00 18 139/74 Mechanical Ventilator 65 04/04/20 00:00 101.7 87 18 141/65 (90) 94 04/03/20 23:45 85 18 138/68 (91) 94 04/03/20 23:30 83 18 129/64 (85) 93 04/03/20 23:29 83 18 60 04/03/20 23:15 84 18 131/64 (86) 93 04/03/20 23:13 82 04/03/20 23:00 84 18 125/65 (85) 93 04/03/20 23:00 18 Mechanical Ventilator 65 04/03/20 23:00 18 131/64 Mechanical Ventilator 65 04/03/20 22:45 86 18 128/65 (86) 93 04/03/20 22:30 85 18 128/62 (84) 94 04/03/20 22:15 85 18 129/63 (85) 94 04/03/20 22:00 18 Mechanical Ventilator 65 04/03/20 22:00 18 129/63 Mechanical Ventilator 65 04/03/20 22:00 100.8 87 18 125/62 (83) 94 04/03/20 21:29 96 18 60 04/03/20 21:00 100.8 92 18 156/89 (111) 94 04/03/20 21:00 18 Mechanical Ventilator 65 04/03/20 21:00 18 151/83 Mechanical Ventilator 65 04/03/20 21:00 152/83 04/03/20 20:30 93 18 181/83 (115) 95 04/03/20 20:15 88 18 166/86 (112) 95 04/03/20 20:00 Mechanical Ventilator 04/03/20 20:00 65 04/03/20 20:00 101.4 83 18 153/84 (107) 95 04/03/20 20:00 18 166/86 Mechanical Ventilator 65 04/03/20 20:00 100.8 04/03/20 19:45 81 18 132/75 (94) 95 04/03/20 19:31 80 04/03/20 19:30 80 18 131/72 (91) 97 04/03/20 19:23 84 18 60 04/03/20 19:15 88 18 139/72 (94) 95 04/03/20 19:00 95 18 146/76 (99) 93 04/03/20 19:00 18 Mechanical Ventilator 65 04/03/20 19:00 18 130/75 Mechanical Ventilator 65 04/03/20 18:31 18 Mechanical Ventilator 65 04/03/20 18:00 101.6 75 18 130/67 (88) 93 04/03/20 17:55 18 Mechanical Ventilator 65 04/03/20 17:12 74 18 60 04/03/20 17:00 75 18 133/69 (90) 92 04/03/20 16:00 85 04/03/20 16:00 60 04/03/20 16:00 79 18 136/67 (90) 92 04/03/20 16:00 Mechanical Ventilator 04/03/20 15:44 18 Mechanical Ventilator 65 04/03/20 15:05 68 18 60 04/03/20 15:00 74 18 115/63 (80) 91 04/03/20 15:00 18 141/73 Mechanical Ventilator 65 04/03/20 14:00 98.4 72 18 128/68 (88) 93 04/03/20 13:10 75 18 60 04/03/20 13:00 74 18 115/63 (80) 91 04/03/20 12:00 81 04/03/20 12:00 Mechanical Ventilator 04/03/20 12:00 60 04/03/20 12:00 70 18 107/67 (80) 92 04/03/20 11:09 71 18 60 04/03/20 11:00 70 18 109/64 (79) 92 04/03/20 10:00 68 18 106/65 (79) 94 04/03/20 09:20 61 18 60 04/03/20 09:00 98.6 64 18 95/59 (71) 93 Intake and Output 04/03/20 04/04/20 19:00 07:00 Intake Total 40 ml 1165 ml Output Total 1527 ml 1020 ml Balance -1487 ml 145 ml Intake Oral 0 ml Free Water 250 ml IV Total 40 ml 430 ml Tube Feeding 0 ml 300 ml Blood Product 125 ml Other 60 ml Output Urine Total 1527 ml 595 ml Stool Total 425 ml Laboratory Tests 04/03/20 14:57: POC Whole Blood Glucose 129H 04/04/20 00:48: POC Whole Blood Glucose 125H 04/04/20 04:00: White Blood Count 7.3, Red Blood Count 3.50L, Hemoglobin 9.8L, Hematocrit 31.8L, Mean Corpuscular Volume 91, Mean Corpuscular Hemoglobin 28.0, Mean Corpuscular Hemoglobin Concent 30.9L, Red Cell Distribution Width 16.0H, Platelet Count 229, Mean Platelet Volume 6.4L, Neutrophils (%) (Auto) , Lymphocytes (%) (Auto) , Monocytes (%) (Auto) , Eosinophils (%) (Auto) , Basophils (%) (Auto) , Sodium Level 150H, Potassium Level 4.3, Chloride Level 113H, Carbon Dioxide Level 33H, Anion Gap 4L, Blood Urea Nitrogen 40H, Creatinine 0.7, Estimat Glomerular Filtration Rate > 60, Glucose Level 116H, Calcium Level 8.4L, Total Bilirubin 1.1H, Direct Bilirubin 0.6H, Aspartate Amino Transf (AST/SGOT) 78H, Alanine Aminotransferase (ALT/SGPT) 184H, Alkaline Phosphatase 125H, Total Protein 5.3L, Albumin 2.2L, Globulin 3.1, Albumin/Globulin Ratio 0.7L 04/04/20 05:19: POC Whole Blood Glucose [Pending] Height (Feet): 5 Height (Inches): 10.00 Weight (Pounds): 240 General Appearance: lethargic EENT: normal ENT inspection Neck: supple Cardiovascular: tachycardia Respiratory/Chest: decreased breath sounds Abdomen: hypoactive bowel sounds Extremities: non-tender Assessment/Plan Status: stable, progressing Assessment/Plan: hep c + but neg RNA intubated OGTF reglan 10 mg repeat labs on FIO2 of 70 % will Da Wilson MD Apr 04, 2020 08:34
[2020-04-04] MEDS: Pantoprazole Inj IVP SCH ×2 (09:00→20:59)
[2020-04-04] MEDS: Enoxaparin 40mg Inj SUBQ SCH (09:02)
[2020-04-04] MEDS: Vitamin D 1000 units Tab ORAL SCH (09:03)
[2020-04-04] MEDS: Lactulose 20gm/30ml UDC ORAL SCH ×3 (09:10→18:00)
--- NOTE | 2020-04-04 10:55 | Nephrology Progress Note ---
Assessment/Plan Problem List: (1) Dehydration (2) Electrolyte imbalance (3) COVID-19 virus infection (4) Pneumonia (5) DMII (diabetes mellitus, type 2) (6) Protein malnutrition Assessment Azotemia, hypernatremia Hypoalbuminemia Staff Otilia bacteremia COVID-19 isolation, pneumonia, bilateral infiltrate Hypertension Diabetes mellitus History of smoking Plan April 04: Remains intubated and on ventilator. Remains full code. Labs re viewed. Serum sodium 150 unchanged. Renal parameters stable. Continue per ID and pulmonary. April 03: Intubated. On ventilator. Full code. Labs reviewed. Serum sodium 150 unchanged. Continue to monitor renal parameters. Continue per pulmonary an d ID. April 02: Full code. On ventilator. Discussed with RN. Serum sodium slightly higher. Will cut down on IV Lasix. Continue per consultants. Continue to monitor renal parameters and electrolytes. April 01: Full code. Remains on ventilator. Labs reviewed. Stable from renal standpoint of view. Continue per consultants. March 31: Full code . Remains intubated on ventilator. Labs reviewed. Patient appears toxic. Discussed with RN. Maintenance IV discontinued. Medication list reviewed. Blood pressure medication stopped due to low blood pressure. Levemir insulin stopped. Continue monitor blood sugar and sliding scale insulin. March 30: Full code. On ventilator. Labs reviewed. Clonidine patch dose increased. Lasix increased. 3% saline 1 time ordered. Continue to monitor electrolytes and renal parameters. March 29: Remains full code. On mechanical ventilation. On tube feeding. Will DC TPN. Will start on maintenance IV fluid. Continue to monitor renal parameters. March 28: On BiPAP. Full code. On TPN. Labs reviewed. Discussed with pharmacy. Continue as is. Watch serum potassium. March 27: Remains on BiPAP. No chemistry panel done today. Full code. On TPN. Will check lab tomorrow. March 26: Remains on BiPAP. Remains on TPN. Labs reviewed. Electrolytes and chemistries within normal limits. Continue as is. March 25: Remains on TPN. Labs reviewed. Discussed with pharmacy. Change IV Protonix to p.o. Continue 3% saline infusion with Lasix. Patient full code. March 24: Continue to be on TPN. Labs are reviewed. Aim to collect electrolytes. Discussed with pharmacy. Continue current consultants. March 23: Continues to be on TPN. Labs reviewed. Electrolytes and chemistries all acceptable. Discussed with pharmacy. Continue current management. March 22: On TPN. Labs reviewed. Low sodium noted. 3% saline to be continued. Continue to monitor electrolytes. Discussed with pharmacy. March 21: On TPN. Labs reviewed. Continue 3% saline and Lasix for mild hyponatremia. Continue TPN as these. Discussed with pharmacy. March 20: Remains on TPN. Labs reviewed. Serum sodium higher on IV Lasix and 3% saline infusion. Continue TPN as is. Continue to monitor renal parameters and electrolytes. Discussed with Dr. Mata March 19: Remains on TPN. Labs reviewed. Serum sodium 128. Will give 3% saline with IV Lasix. Continue to monitor electrolytes. No change in TPN composition. Discussed with pharmacy. March 18: Remains on TPN. Labs reviewed. Discussed with pharmacist. Will give 3 doses of IV Lasix 20 mg every 8 hours. Continue to monitor serum sodium electrolytes uric acid. White blood cells down. Continue per consultants. March 17: On TPN. Labs reviewed. Discussed with pharmacist. Sodium content increase. Continue to monitor CMP. Patient continues to have leukocytosis. March 16: On TPN. Labs reviewed. Discussed with pharmacist. Appropriate changes made. Continue to monitor electrolytes. March 15: Remains on TPN. Labs reviewed. Discussed with pharmacist. Continue per current management. March 14: Remains on TPN. Labs reviewed, stable. Vitamin D level low, replacement ordered. Continue to monitor electrolytes and renal parameters. March 13: Patient remains on TPN. Discussed with pharmacist. TPN's sodium content adjusted. Labs reviewed. Continue to monitor electrolytes. Blood pressure remains stable. Continue per consultants. March 12: Patient on TPN. Labs reviewed. CPK remains elevated. Abnormal electrolytes and high blood sugar discussed with pharmacist and TPN adjusted. Continue to monitor labs. Oral Protonix added. Ibuprofen discontinued. Can continue to monitor electrolytes and chemistries. Levemir for high blood sugar added. March 11: Patient on TPN. Labs as of 11:15 AM is still pending. Continue per current treatment plan. Will check labs and adjust TPN as needed. Continue per consultants. March 10: Patient on TPN. Labs reviewed. Electrolytes overall stable. CPK is elevated. Will monitor electrolyte, CPK level, lipid panel. Continue per consultants. Discussed with pharmacist. Discussed with RN. Nutritional evalu ation noted. Previously: D5W 100 cc an hour Monitor electrolytes renal parameters TPN and Intralipid ordered Will follow Continue per consultants Dietary consult requested Subjective ROS Limited/Unobtainable: Yes Objective Objective Last 24 Hour Vital Signs Date Time Temp Pulse Resp B/P (MAP) Pulse Ox O2 Delivery O2 Flow Rate FiO2 04/04/20 10:15 66 18 134/73 (93) 94 04/04/20 10:00 64 18 131/77 (95) 94 04/04/20 09:45 65 18 130/76 (94) 96 04/04/20 09:30 18 103/63 Mechanical Ventilator 70 04/04/20 09:30 72 17 124/81 (95) 96 04/04/20 09:29 18 Mechanical Ventilator 70 04/04/20 09:15 60 18 103/63 (76) 96 04/04/20 09:00 18 Mechanical Ventilator 70 04/04/20 09:00 18 99/67 Mechanical Ventilator 70 04/04/20 09:00 58 18 99/67 (78) 95 04/04/20 08:45 18 Mechanical Ventilator 70 04/04/20 08:45 57 18 103/67 (79) 95 04/04/20 08:30 18 Mechanical Ventilator 70 04/04/20 08:30 62 18 101/68 (79) 95 04/04/20 08:15 18 Mechanical Ventilator 70 04/04/20 08:15 97.0 68 18 102/61 (75) 96 04/04/20 08:12 68 04/04/20 08:00 64 18 108/68 (81) 94 04/04/20 08:00 70 04/04/20 08:00 18 Mechanical Ventilator 70 04/04/20 08:00 18 108/68 Mechanical Ventilator 70 04/04/20 08:00 Mechanical Ventilator 04/04/20 07:30 65 18 113/68 (83) 94 04/04/20 07:00 72 18 70 04/04/20 07:00 18 Mechanical Ventilator 70 04/04/20 07:00 18 101/61 Mechanical Ventilator 70 04/04/20 07:00 75 18 101/61 (74) 95 04/04/20 06:45 98.9 69 18 106/67 (80) 94 04/04/20 06:30 72 18 113/66 (82) 94 04/04/20 06:15 76 18 111/64 (80) 95 04/04/20 06:00 18 Mechanical Ventilator 70 04/04/20 06:00 18 109/67 Mechanical Ventilator 70 04/04/20 06:00 78 18 109/67 (81) 95 04/04/20 05:45 99.7 77 18 126/79 (95) 95 04/04/20 05:30 81 18 133/84 (100) 94 04/04/20 05:15 85 18 127/76 (93) 94 04/04/20 05:09 85 18 70 04/04/20 05:00 18 Mechanical Ventilator 70 04/04/20 05:00 18 127/76 Mechanical Ventilator 70 04/04/20 05:00 90 18 122/73 (89) 95 04/04/20 04:45 88 18 113/61 (78) 95 04/04/20 04:30 83 18 118/65 (82) 95 04/04/20 04:15 78 18 124/79 (94) 93 04/04/20 04:08 70 04/04/20 04:00 18 Mechanical Ventilator 70 04/04/20 04:00 18 124/79 Mechanical Ventilator 70 04/04/20 04:00 Mechanical Ventilator 04/04/20 04:00 101.6 79 18 114/69 (84) 93 04/04/20 03:45 80 18 120/72 (88) 92 04/04/20 03:35 79 04/04/20 03:30 84 18 121/69 (86) 92 04/04/20 03:15 83 18 116/70 (85) 91 04/04/20 03:00 89 18 126/82 (97) 96 04/04/20 03:00 18 Mechanical Ventilator 70 04/04/20 03:00 18 126/82 Mechanical Ventilator 70 04/04/20 02:53 86 18 70 04/04/20 02:52 18 Mechanical Ventilator 70 04/04/20 02:50 18 130/75 Mechanical Ventilator 70 04/04/20 02:45 89 18 119/68 (85) 93 04/04/20 02:30 102.1 98 18 128/72 (90) 92 04/04/20 02:28 100 18 138/75 (96) 92 04/04/20 02:25 103 18 130/75 (93) 92 04/04/20 02:15 100 18 88 04/04/20 02:00 18 Mechanical Ventilator 70 04/04/20 02:00 18 130/75 Mechanical Ventilator 70 04/04/20 02:00 104 19 153/78 (103) 91 04/04/20 01:46 102.7 04/04/20 01:45 90 18 129/67 (87) 94 04/04/20 01:30 93 18 139/66 (90) 94 04/04/20 01:15 96 18 131/69 (89) 94 04/04/20 01:03 84 18 60 04/04/20 01:00 18 Mechanical Ventilator 65 04/04/20 01:00 18 131/69 Mechanical Ventilator 65 04/04/20 01:00 99 18 135/71 (92) 93 04/04/20 01:00 99 18 135/71 (92) 93 04/04/20 00:45 100 18 155/74 (101) 93 04/04/20 00:30 106 19 160/74 (102) 94 04/04/20 00:15 89 18 139/74 (95) 94 04/04/20 00:15 89 18 139/74 (95) 94 04/04/20 00:00 65 04/04/20 00:00 87 18 141/65 (90) 94 04/04/20 00:00 Mechanical Ventilator 04/04/20 00:00 18 Mechanical Ventilator 65 04/04/20 00:00 18 139/74 Mechanical Ventilator 65 04/04/20 00:00 101.7 87 18 141/65 (90) 94 04/03/20 23:45 85 18 138/68 (91) 94 04/03/20 23:30 83 18 129/64 (85) 93 04/03/20 23:29 83 18 60 04/03/20 23:15 84 18 131/64 (86) 93 04/03/20 23:13 82 04/03/20 23:00 84 18 125/65 (85) 93 04/03/20 23:00 18 Mechanical Ventilator 65 04/03/20 23:00 18 131/64 Mechanical Ventilator 65 04/03/20 22:45 86 18 128/65 (86) 93 04/03/20 22:30 85 18 128/62 (84) 94 04/03/20 22:15 85 18 129/63 (85) 94 04/03/20 22:00 18 Mechanical Ventilator 65 04/03/20 22:00 18 129/63 Mechanical Ventilator 65 04/03/20 22:00 100.8 87 18 125/62 (83) 94 04/03/20 21:29 96 18 60 04/03/20 21:00 100.8 92 18 156/89 (111) 94 04/03/20 21:00 18 Mechanical Ventilator 65 04/03/20 21:00 18 151/83 Mechanical Ventilator 65 04/03/20 21:00 152/83 04/03/20 20:30 93 18 181/83 (115) 95 04/03/20 20:15 88 18 166/86 (112) 95 04/03/20 20:00 Mechanical Ventilator 04/03/20 20:00 65 04/03/20 20:00 101.4 83 18 153/84 (107) 95 04/03/20 20:00 18 166/86 Mechanical Ventilator 65 04/03/20 20:00 100.8 04/03/20 19:45 81 18 132/75 (94) 95 04/03/20 19:31 80 04/03/20 19:30 80 18 131/72 (91) 97 04/03/20 19:23 84 18 60 04/03/20 19:15 88 18 139/72 (94) 95 04/03/20 19:00 95 18 146/76 (99) 93 04/03/20 19:00 18 Mechanical Ventilator 65 04/03/20 19:00 18 130/75 Mechanical Ventilator 65 04/03/20 18:31 18 Mechanical Ventilator 65 04/03/20 18:00 101.6 75 18 130/67 (88) 93 04/03/20 17:55 18 Mechanical Ventilator 65 04/03/20 17:12 74 18 60 04/03/20 17:00 75 18 133/69 (90) 92 04/03/20 16:00 85 04/03/20 16:00 60 04/03/20 16:00 79 18 136/67 (90) 92 04/03/20 16:00 Mechanical Ventilator 04/03/20 15:44 18 Mechanical Ventilator 65 04/03/20 15:05 68 18 60 04/03/20 15:00 74 18 115/63 (80) 91 04/03/20 15:00 18 141/73 Mechanical Ventilator 65 04/03/20 14:00 98.4 72 18 128/68 (88) 93 04/03/20 13:10 75 18 60 04/03/20 13:00 74 18 115/63 (80) 91 04/03/20 12:00 81 04/03/20 12:00 Mechanical Ventilator 04/03/20 12:00 60 04/03/20 12:00 70 18 107/67 (80) 92 04/03/20 11:09 71 18 60 04/03/20 11:00 70 18 109/64 (79) 92 Intake and Output 04/03/20 04/04/20 19:00 07:00 Intake Total 40 ml 1205 ml Output Total 1527 ml 1020 ml Balance -1487 ml 185 ml Intake Oral 0 ml Free Water 250 ml IV Total 40 ml 470 ml Tube Feeding 0 ml 300 ml Blood Product 125 ml Other 60 ml Output Urine Total 1527 ml 595 ml Stool Total 425 ml Current Medications Medications (Trade) Dose Ordered Sig/Dennis Route PRN Reason Start Time Stop Time Status Last Admin Dose Admin Acetaminophen (Tylenol) 650 mg Q4H PRN ORAL Mild Pain (Pain Scale 1-3) 03/09/20 12:00 04/08/20 11:59 04/04/20 01:16 Bisacodyl (Dulcolax) 10 mg Q12H PRN RECTAL Constipation 03/18/20 16:45 06/16/20 16:44 Chlorhexidine Gluconate (Marlen-Hex 2%) 1 applic DAILY@2000 TOPIC 03/30/20 20:00 06/28/20 19:59 04/03/20 20:00 Dextrose (Dextrose 50%) 25 ml Q30M PRN IV Hypoglycemia 03/29/20 20:45 06/27/20 20:44 Dextrose (Dextrose 50%) 50 ml Q30M PRN IV Hypoglycemia 03/29/20 20:45 06/27/20 20:44 Enoxaparin Sodium (Lovenox) 40 mg DAILY SUBQ 03/13/20 12:00 06/11/20 11:59 04/04/20 09:02 Fentanyl Citrate 250 ml @ 1 mls/hr Q24H IV 03/30/20 19:50 04/04/20 19:30 04/04/20 09:30 Furosemide (Lasix) 20 mg DAILY IV 04/03/20 09:00 04/18/20 13:59 04/04/20 09:00 Heparin Sodium/ Sodium Chloride (Heparin 1000 units/500ml Premix) 1,000 unit ONCE PRN INJ radiology procedure 04/03/20 13:00 04/05/20 12:59 Hydralazine HCl (Apresoline) 10 mg Q4H PRN IV For High Blood Pressure 03/30/20 12:15 06/28/20 12:14 04/03/20 21:00 Insulin Aspart (NovoLOG) Q6HR SUBQ 03/30/20 00:00 06/28/20 00:00 04/03/20 06:00 Labetalol HCl (Normodyne) 10 mg Q4H PRN IV sbp greater tahtn 160 03/28/20 17:30 04/27/20 17:29 Lactulose (Cephulac) 20 gm THREE TIMES A DAY ORAL 03/08/20 13:00 04/07/20 12:59 04/04/20 09:10 Lidocaine HCl (Xylocaine 1% 30ml) 30 ml ONCE PRN INJ radiology procedure 04/03/20 13:00 04/05/20 12:59 Meropenem 1 gm/ Sodium Chloride 100 ml @ 200 mls/hr Q8HR IVPB 04/02/20 22:00 04/07/20 21:59 04/04/20 06:05 Methylprednisolone Sodium Succinate (Solu-MEDROL) 40 mg EVERY 8 HOURS IVP 03/22/20 14:00 06/20/20 13:59 04/04/20 06:05 Metoclopramide HCl (Reglan) 10 mg Q6H IVP 03/30/20 15:00 04/29/20 14:59 04/04/20 08:59 Micafungin Sodium 100 mg/Sodium Chloride 100 ml @ 100 mls/hr Q24H IVPB 03/29/20 15:00 04/11/20 23:59 04/03/20 15:12 Pantoprazole (Protonix) 40 mg EVERY 12 HOURS IVP 04/01/20 21:00 05/01/20 20:59 04/04/20 09:00 Polyethylene Glycol (Miralax) 17 gm BEDTIME ORAL 03/08/20 21:00 04/07/20 20:59 04/03/20 21:07 Trimethoprim/ Sulfamethoxazole (Bactrim-DS) 1 tab Q24H ORAL 03/29/20 17:00 04/11/20 16:59 04/03/20 18:28 Vitamin D (Vitamin D) 5,000 unit DAILY ORAL 03/15/20 09:00 04/14/20 08:59 04/04/20 09:03 Laboratory Tests 04/03/20 14:57: POC Whole Blood Glucose 129H 04/04/20 00:48: POC Whole Blood Glucose 125H 04/04/20 04:00: White Blood Count 7.3, Red Blood Count 3.50L, Hemoglobin 9.8L, Hematocrit 31.8L, Mean Corpuscular Volume 91, Mean Corpuscular Hemoglobin 28.0, Mean Corpuscular Hemoglobin Concent 30.9L, Red Cell Distribution Width 16.0H, Platelet Count 229, Mean Platelet Volume 6.4L, Neutrophils (%) (Auto) , Lymphocytes (%) (Auto) , Monocytes (%) (Auto) , Eosinophils (%) (Auto) , Basophils (%) (Auto) , Sodium Level 150H, Potassium Level 4.3, Chloride Level 113H, Carbon Dioxide Level 33H, Anion Gap 4L, Blood Urea Nitrogen 40H, Creatinine 0.7, Estimat Glomerular Filtration Rate > 60, Glucose Level 116H, Calcium Level 8.4L, Total Bilirubin 1.1H, Direct Bilirubin 0.6H, Aspartate Amino Transf (AST/SGOT) 78H, Alanine Aminotransferase (ALT/SGPT) 184H, Alkaline Phosphatase 125H, Total Protein 5.3L, Albumin 2.2L, Globulin 3.1, Albumin/Globulin Ratio 0.7L 04/04/20 05:19: POC Whole Blood Glucose [Pending] Height (Feet): 5 Height (Inches): 10.00 Weight (Pounds): 240 General Appearance: no apparent distress EENT: other - Intubated on ventilator Cardiovascular: normal rate Respiratory/Chest: decreased breath sounds Abdomen: distended Rubin Cooper MD Apr 04, 2020 10:55
--- NOTE | 2020-04-04 14:03 | NUR ---
CASE MANAGEMENT:REVIEW 04/04/20 SI: COVID PNA. UTI. RESP FAILURE~INTUBATED 97.0 64 18 140/76 95% ON VENT SUPPORT W/70% FIO2 H/H-9.8/31.8 NA+150 BUN+40 IS: FENTANYL GTT IV LASIX QD IV MEROPENEM Q8HRS IV PROTONIX Q12 IV MICAFUNGIN Q24 IV SOLUMEDROL Q8HRS LOVENOX SQ QD BACTRIM PO Q24 : ICU STATUS
--- NOTE | 2020-04-04 14:05 | Pulmonology Progress Note ---
Subjective ROS Limited/Unobtainable: Yes Interval Events: Intubated 03/28/20 Constitutional: Reports: other HEENT: Repors: no symptoms Respiratory: Reports: dry cough, shortness of breath Cardiovascular: Reports: no symptoms Gastrointestinal/Abdominal: Denies: nausea, vomiting, diarrhea Psychiatric: Reports: other Skin: Denies: rash Musculoskeletal: Reports: other Allergies: Coded Allergies: No Known Allergies (Unverified , 02/05/20) Objective Last 24 Hour Vital Signs Date Time Temp Pulse Resp B/P (MAP) Pulse Ox O2 Delivery O2 Flow Rate FiO2 04/04/20 13:00 70 18 151/80 (103) 95 04/04/20 12:15 67 18 146/78 (100) 94 04/04/20 12:00 Mechanical Ventilator 04/04/20 12:00 97.0 64 18 140/76 (97) 94 04/04/20 12:00 71 04/04/20 12:00 70 04/04/20 11:45 68 18 137/86 (103) 94 04/04/20 11:30 65 18 131/58 (82) 93 04/04/20 11:15 69 18 146/79 (101) 95 04/04/20 11:00 65 18 138/80 (99) 95 04/04/20 10:45 68 18 148/88 (108) 95 04/04/20 10:30 68 19 138/77 (97) 94 04/04/20 10:15 66 18 134/73 (93) 94 04/04/20 10:00 64 18 131/77 (95) 94 04/04/20 09:45 65 18 130/76 (94) 96 04/04/20 09:30 18 103/63 Mechanical Ventilator 70 04/04/20 09:30 72 17 124/81 (95) 96 04/04/20 09:29 18 Mechanical Ventilator 70 04/04/20 09:15 60 18 103/63 (76) 96 04/04/20 09:00 18 Mechanical Ventilator 70 04/04/20 09:00 18 99/67 Mechanical Ventilator 70 04/04/20 09:00 58 18 99/67 (78) 95 04/04/20 08:45 18 Mechanical Ventilator 70 04/04/20 08:45 57 18 103/67 (79) 95 04/04/20 08:30 18 Mechanical Ventilator 70 04/04/20 08:30 62 18 101/68 (79) 95 04/04/20 08:15 18 Mechanical Ventilator 70 04/04/20 08:15 97.0 68 18 102/61 (75) 96 04/04/20 08:12 68 04/04/20 08:00 64 18 108/68 (81) 94 04/04/20 08:00 70 04/04/20 08:00 18 Mechanical Ventilator 70 04/04/20 08:00 18 108/68 Mechanical Ventilator 70 04/04/20 08:00 Mechanical Ventilator 04/04/20 07:30 65 18 113/68 (83) 94 04/04/20 07:00 72 18 70 04/04/20 07:00 18 Mechanical Ventilator 70 04/04/20 07:00 18 101/61 Mechanical Ventilator 70 04/04/20 07:00 75 18 101/61 (74) 95 04/04/20 06:45 98.9 69 18 106/67 (80) 94 04/04/20 06:30 72 18 113/66 (82) 94 04/04/20 06:15 76 18 111/64 (80) 95 04/04/20 06:00 18 Mechanical Ventilator 70 04/04/20 06:00 18 109/67 Mechanical Ventilator 70 04/04/20 06:00 78 18 109/67 (81) 95 04/04/20 05:45 99.7 77 18 126/79 (95) 95 04/04/20 05:30 81 18 133/84 (100) 94 04/04/20 05:15 85 18 127/76 (93) 94 04/04/20 05:09 85 18 70 04/04/20 05:00 18 Mechanical Ventilator 70 04/04/20 05:00 18 127/76 Mechanical Ventilator 70 04/04/20 05:00 90 18 122/73 (89) 95 04/04/20 04:45 88 18 113/61 (78) 95 04/04/20 04:30 83 18 118/65 (82) 95 04/04/20 04:15 78 18 124/79 (94) 93 04/04/20 04:08 70 04/04/20 04:00 18 Mechanical Ventilator 70 04/04/20 04:00 18 124/79 Mechanical Ventilator 70 04/04/20 04:00 Mechanical Ventilator 04/04/20 04:00 101.6 79 18 114/69 (84) 93 04/04/20 03:45 80 18 120/72 (88) 92 04/04/20 03:35 79 04/04/20 03:30 84 18 121/69 (86) 92 04/04/20 03:15 83 18 116/70 (85) 91 04/04/20 03:00 89 18 126/82 (97) 96 04/04/20 03:00 18 Mechanical Ventilator 70 04/04/20 03:00 18 126/82 Mechanical Ventilator 70 04/04/20 02:53 86 18 70 04/04/20 02:52 18 Mechanical Ventilator 70 04/04/20 02:50 18 130/75 Mechanical Ventilator 70 04/04/20 02:45 89 18 119/68 (85) 93 04/04/20 02:30 102.1 98 18 128/72 (90) 92 04/04/20 02:28 100 18 138/75 (96) 92 04/04/20 02:25 103 18 130/75 (93) 92 04/04/20 02:15 100 18 88 04/04/20 02:00 18 Mechanical Ventilator 70 04/04/20 02:00 18 130/75 Mechanical Ventilator 70 04/04/20 02:00 104 19 153/78 (103) 91 04/04/20 01:46 102.7 04/04/20 01:45 90 18 129/67 (87) 94 04/04/20 01:30 93 18 139/66 (90) 94 04/04/20 01:15 96 18 131/69 (89) 94 04/04/20 01:03 84 18 60 04/04/20 01:00 18 Mechanical Ventilator 65 04/04/20 01:00 18 131/69 Mechanical Ventilator 65 04/04/20 01:00 99 18 135/71 (92) 93 04/04/20 01:00 99 18 135/71 (92) 93 04/04/20 00:45 100 18 155/74 (101) 93 04/04/20 00:30 106 19 160/74 (102) 94 04/04/20 00:15 89 18 139/74 (95) 94 04/04/20 00:15 89 18 139/74 (95) 94 04/04/20 00:00 65 04/04/20 00:00 87 18 141/65 (90) 94 04/04/20 00:00 Mechanical Ventilator 04/04/20 00:00 18 Mechanical Ventilator 65 04/04/20 00:00 18 139/74 Mechanical Ventilator 65 04/04/20 00:00 101.7 87 18 141/65 (90) 94 04/03/20 23:45 85 18 138/68 (91) 94 04/03/20 23:30 83 18 129/64 (85) 93 04/03/20 23:29 83 18 60 04/03/20 23:15 84 18 131/64 (86) 93 04/03/20 23:13 82 04/03/20 23:00 84 18 125/65 (85) 93 04/03/20 23:00 18 Mechanical Ventilator 65 04/03/20 23:00 18 131/64 Mechanical Ventilator 65 04/03/20 22:45 86 18 128/65 (86) 93 04/03/20 22:30 85 18 128/62 (84) 94 04/03/20 22:15 85 18 129/63 (85) 94 04/03/20 22:00 18 Mechanical Ventilator 65 04/03/20 22:00 18 129/63 Mechanical Ventilator 65 04/03/20 22:00 100.8 87 18 125/62 (83) 94 04/03/20 21:29 96 18 60 04/03/20 21:00 100.8 92 18 156/89 (111) 94 04/03/20 21:00 18 Mechanical Ventilator 65 04/03/20 21:00 18 151/83 Mechanical Ventilator 65 04/03/20 21:00 152/83 04/03/20 20:30 93 18 181/83 (115) 95 04/03/20 20:15 88 18 166/86 (112) 95 04/03/20 20:00 Mechanical Ventilator 04/03/20 20:00 65 04/03/20 20:00 101.4 83 18 153/84 (107) 95 04/03/20 20:00 18 166/86 Mechanical Ventilator 65 04/03/20 20:00 100.8 04/03/20 19:45 81 18 132/75 (94) 95 04/03/20 19:31 80 04/03/20 19:30 80 18 131/72 (91) 97 04/03/20 19:23 84 18 60 04/03/20 19:15 88 18 139/72 (94) 95 04/03/20 19:00 95 18 146/76 (99) 93 04/03/20 19:00 18 Mechanical Ventilator 65 04/03/20 19:00 18 130/75 Mechanical Ventilator 65 04/03/20 18:31 18 Mechanical Ventilator 65 04/03/20 18:00 101.6 75 18 130/67 (88) 93 04/03/20 17:55 18 Mechanical Ventilator 65 04/03/20 17:12 74 18 60 04/03/20 17:00 75 18 133/69 (90) 92 04/03/20 16:00 85 04/03/20 16:00 60 04/03/20 16:00 79 18 136/67 (90) 92 04/03/20 16:00 Mechanical Ventilator 04/03/20 15:44 18 Mechanical Ventilator 65 04/03/20 15:05 68 18 60 04/03/20 15:00 74 18 115/63 (80) 91 04/03/20 15:00 18 141/73 Mechanical Ventilator 65 Intake and Output 04/03/20 04/04/20 19:00 07:00 Intake Total 40 ml 1205 ml Output Total 1527 ml 1020 ml Balance -1487 ml 185 ml Intake Oral 0 ml Free Water 250 ml IV Total 40 ml 470 ml Tube Feeding 0 ml 300 ml Blood Product 125 ml Other 60 ml Output Urine Total 1527 ml 595 ml Stool Total 425 ml General Appearance: WD/WN, no acute distress HEENT: normocephalic, atraumatic Respiratory: chest wall non-tender Cardiovascular: normal rate, regular rhythm Abdomen: normal bowel sounds, soft, non tender, other - obese Microbiology Date/Time Source Procedure Growth Status 04/02/20 16:35 Blood Blood Culture - Preliminary NO GROWTH AFTER 24 HOURS Resulted 04/02/20 16:35 Blood Blood Culture - Preliminary NO GROWTH AFTER 24 HOURS Resulted Laboratory Tests 04/03/20 14:57: POC Whole Blood Glucose 129H 04/04/20 00:48: POC Whole Blood Glucose 125H 04/04/20 04:00: White Blood Count 7.3, Red Blood Count 3.50L, Hemoglobin 9.8L, Hematocrit 31.8L, Mean Corpuscular Volume 91, Mean Corpuscular Hemoglobin 28.0, Mean Corpuscular Hemoglobin Concent 30.9L, Red Cell Distribution Width 16.0H, Platelet Count 229, Mean Platelet Volume 6.4L, Neutrophils (%) (Auto) , Lymphocytes (%) (Auto) , Monocytes (%) (Auto) , Eosinophils (%) (Auto) , Basophils (%) (Auto) , Sodium Level 150H, Potassium Level 4.3, Chloride Level 113H, Carbon Dioxide Level 33H, Anion Gap 4L, Blood Urea Nitrogen 40H, Creatinine 0.7, Estimat Glomerular Filt ration Rate > 60, Glucose Level 116H, Calcium Level 8.4L, Total Bilirubin 1.1H, Direct Bilirubin 0.6H, Aspartate Amino Transf (AST/SGOT) 78H, Alanine Aminotransferase (ALT/SGPT) 184H, Alkaline Phosphatase 125H, Total Protein 5.3L, Albumin 2.2L, Globulin 3.1, Albumin/Globulin Ratio 0.7L 04/04/20 05:19: POC Whole Blood Glucose [Pending] 04/04/20 11:06: Arterial Blood pH 7.466H, Arterial Blood Partial Pressure CO2 41.6, Arterial Blood Partial Pressure O2 76.7, Arterial Blood HCO3 29.3H, Arterial Blood Oxygen Saturation 95.7, Arterial Blood Base Excess 5.1H, Shemar Test Positive 04/04/20 12:20: POC Whole Blood Glucose 158H Current Medications Medications (Trade) Dose Ordered Sig/Dennis Route PRN Reason Start Time Stop Time Status Last Admin Dose Admin Acetaminophen (Tylenol) 650 mg Q4H PRN ORAL Mild Pain (Pain Scale 1-3) 03/09/20 12:00 04/08/20 11:59 04/04/20 01:16 Bisacodyl (Dulcolax) 10 mg Q12H PRN RECTAL Constipation 03/18/20 16:45 06/16/20 16:44 Chlorhexidine Gluconate (Marlen-Hex 2%) 1 applic DAILY@1999 TOPIC 03/30/20 20:00 06/28/20 19:59 04/03/20 20:00 Dextrose (Dextrose 50%) 25 ml Q30M PRN IV Hypoglycemia 03/29/20 20:45 06/27/20 20:44 Dextrose (Dextrose 50%) 50 ml Q30M PRN IV Hypoglycemia 03/29/20 20:45 06/27/20 20:44 Enoxaparin Sodium (Lovenox) 40 mg DAILY SUBQ 03/13/20 12:00 06/11/20 11:59 04/04/20 09:02 Fentanyl Citrate 250 ml @ 1 mls/hr Q24H IV 03/30/20 19:50 04/04/20 19:59 04/04/20 09:30 Fentanyl Citrate 250 ml @ 1 mls/hr Q24H IV 04/04/20 20:00 04/09/20 19:59 Furosemide (Lasix) 20 mg DAILY IV 04/03/20 09:00 04/18/20 13:59 04/04/20 09:00 Heparin Sodium/ Sodium Chloride (Heparin 1000 units/500ml Premix) 1,000 unit ONCE PRN INJ radiology procedure 04/03/20 13:00 04/05/20 12:59 Hydralazine HCl (Apresoline) 10 mg Q4H PRN IV For High Blood Pressure 03/30/20 12:15 06/28/20 12:14 04/03/20 21:00 Insulin Aspart (NovoLOG) Q6HR SUBQ 03/30/20 00:00 06/28/20 00:00 04/04/20 12:54 Labetalol HCl (Normodyne) 10 mg Q4H PRN IV sbp greater tahtn 160 03/28/20 17:30 04/27/20 17:29 Lactulose (Cephulac) 20 gm THREE TIMES A DAY ORAL 03/08/20 13:00 04/07/20 12:59 04/04/20 12:51 Lidocaine HCl (Xylocaine 1% 30ml) 30 ml ONCE PRN INJ radiology procedure 04/03/20 13:00 04/05/20 12:59 Meropenem 1 gm/ Sodium Chloride 100 ml @ 200 mls/hr Q8HR IVPB 04/02/20 22:00 04/07/20 21:59 04/04/20 13:40 Methylprednisolone Sodium Succinate (Solu-MEDROL) 40 mg EVERY 8 HOURS IVP 03/22/20 14:00 06/20/20 13:59 04/04/20 13:40 Metoclopramide HCl (Reglan) 10 mg Q6H IVP 03/30/20 15:00 04/29/20 14:59 04/04/20 08:59 Micafungin Sodium 100 mg/Sodium Chloride 100 ml @ 100 mls/hr Q24H IVPB 03/29/20 15:00 04/11/20 23:59 04/03/20 15:12 Pantoprazole (Protonix) 40 mg EVERY 12 HOURS IVP 04/01/20 21:00 05/01/20 20:59 04/04/20 09:00 Polyethylene Glycol (Miralax) 17 gm BEDTIME ORAL 03/08/20 21:00 04/07/20 20:59 04/03/20 21:07 Trimethoprim/ Sulfamethoxazole (Bactrim-DS) 1 tab Q24H ORAL 03/29/20 17:00 04/11/20 16:59 04/03/20 18:28 Vitamin D (Vitamin D) 5,000 unit DAILY ORAL 03/15/20 09:00 04/14/20 08:59 04/04/20 09:03 Assessment/Plan Assessment/Plan Assessment/Plan 1.COVID-19 pneumonia. - Completed specific therapies - On solumedrol 2. DVT ppx - on lovenox 3. Hypertension - no longer on meds - May need pressors 4. Leukocytosis; - ID following - On abx - Budding yeast on blood CS 5. Elevated LFT - positive Hep C; treated in the past with IF 6. Respiratory failure -Intubated 03/28/20 -Family aware - Prognosis grave - Increased Vt to 750; rate to 18 -On Fentanyl 7. Discussed with cardiology -No evidence for cardiac dysfunction or PE -tachycardic; will increase sedation 8. AMS -Has had a change in mental status -back on sedation S/p new PICC line On abx Slowly improving oxygenation John Mata MD Apr 04, 2020 14:05
--- NOTE | 2020-04-04 14:40 | NUR ---
NURSE HAND-OFF REPORT: Latest Vital Signs: Temperature 97.0 , Pulse 70 , B/P 133 /74 , Respiratory Rate 20 , O2 SAT 95 , Mechanical Ventilator, O2 Flow Rate . Vital Sign Comment: RASS -2 EKG Rhythm: Sinus Rhythm Rhythm change?: N Latest Hassan Fall Score: 50 Fall Risk: High Risk Safety Measures: Call light Within Reach, Bed Alarm Zone 1, Side Rails Side Rails x3, Bed position Low and Locked. Fall Precautions: Yellow Socks Yellow Gown Door Sign Patient Fall Education Report given to Anirudh Downing RN.
--- NOTE | 2020-04-04 15:02 | Infectious Diseases Prog Note ---
Assessment/Plan Assessment/Plan ASSESSMENT AND PLAN: 1. staph aureus bacteremia/mssa, ? source, ? endocarditis, sepsis, leukocytosis, ? CAP, PJP less likely with HIV negative and steroids < 1 month covid-19 +, hypoxia, sob, chest x-ray worse, ? PE, ? HCAP/aspiration pna recurrent fevers - ? fungal, ? OI leukocytosis noted - ? new infection, ? steroids cocci serology negative, legionella negative, beta 1,3 D-glucan wnl, Il-16 - 13.7 elevated LFT's - ? TPN, ? Bactrim - US without gallbladder disease, + steatosis - d/w GI - TPN more likely than bactrim as etiology e.coli uti - s/p treatment with rocephin, s/p treatment for presumptive pneumocystis pna + yeast in blood, fungemia, ? line infection, sepsis, shock, pna, sc-nf - meropenem (-03/29/20), micafungin (03/29/20/), discontinue vancomycin, limited use with diflucan secondary to drug interaction - picc line changed - surveillance blood cultures negative - bactrim for pneumocystis prophylaxis, s/p pneumocystis treatment - s/p tx for mssa bacteremia and ? endocarditis - monitor hypoxia, labs and chest x-ray - some clinical improvement with decrease in fio2 and now off pressors - guarded condition - monitor fevers 2. covid-19 isolation 3. Hypertension history. Blood pressure treatment primary care team. 4. Elevated blood sugars. Blood sugar treatment per primary care team. 5. No known drug allergies. 6. Social history is positive for smoking. 7. Family history is noncontributory. 8. MAR was noted. 9. Case was discussed with RN. 10. Continue treatment per primary consultants. Subjective Constitutional: Reports: fever, fatigue, other - + vent, more alert, no pressors HEENT: Reports: congestion Respiratory: Reports: shortness of breath Cardiovascular: Denies: chest pain Gastrointestinal/Abdominal: Denies: nausea, vomiting, diarrhea Genitourinary: Reports: other - + foely Neurologic: Reports: other - more, alert, on vent Psychiatric: Reports: other - NA Skin: Denies: rash Hematologic: Denies: bleeding Musculoskeletal: Reports: other - NA Allergies: Coded Allergies: No Known Allergies (Unverified , 02/05/20) Objective Last 24 Hour Vital Signs Date Time Temp Pulse Resp B/P (MAP) Pulse Ox O2 Delivery O2 Flow Rate FiO2 04/04/20 14:00 70 20 133/74 (93) 95 04/04/20 13:10 82 18 70 04/04/20 13:00 70 18 151/80 (103) 95 04/04/20 12:15 67 18 146/78 (100) 94 04/04/20 12:00 Mechanical Ventilator 04/04/20 12:00 97.0 64 18 140/76 (97) 94 04/04/20 12:00 71 04/04/20 12:00 70 04/04/20 11:45 68 18 137/86 (103) 94 04/04/20 11:30 65 18 131/58 (82) 93 04/04/20 11:15 69 18 146/79 (101) 95 04/04/20 11:00 65 18 138/80 (99) 95 04/04/20 11:00 70 18 70 04/04/20 10:45 68 18 148/88 (108) 95 04/04/20 10:30 68 19 138/77 (97) 94 04/04/20 10:15 66 18 134/73 (93) 94 04/04/20 10:00 64 18 131/77 (95) 94 04/04/20 09:45 65 18 130/76 (94) 96 04/04/20 09:30 18 103/63 Mechanical Ventilator 70 04/04/20 09:30 72 17 124/81 (95) 96 04/04/20 09:29 18 Mechanical Ventilator 70 04/04/20 09:15 60 18 103/63 (76) 96 04/04/20 09:00 18 Mechanical Ventilator 70 04/04/20 09:00 18 99/67 Mechanical Ventilator 70 04/04/20 09:00 58 18 99/67 (78) 95 04/04/20 08:45 18 Mechanical Ventilator 70 04/04/20 08:45 57 18 103/67 (79) 95 04/04/20 08:30 18 Mechanical Ventilator 70 04/04/20 08:30 62 18 101/68 (79) 95 04/04/20 08:15 18 Mechanical Ventilator 70 04/04/20 08:15 97.0 68 18 102/61 (75) 96 04/04/20 08:12 68 04/04/20 08:00 64 18 108/68 (81) 94 04/04/20 08:00 70 04/04/20 08:00 18 Mechanical Ventilator 70 04/04/20 08:00 18 108/68 Mechanical Ventilator 70 04/04/20 08:00 Mechanical Ventilator 04/04/20 07:30 65 18 113/68 (83) 94 04/04/20 07:00 72 18 70 04/04/20 07:00 18 Mechanical Ventilator 70 04/04/20 07:00 18 101/61 Mechanical Ventilator 70 04/04/20 07:00 75 18 101/61 (74) 95 04/04/20 06:45 98.9 69 18 106/67 (80) 94 04/04/20 06:30 72 18 113/66 (82) 94 04/04/20 06:15 76 18 111/64 (80) 95 04/04/20 06:00 18 Mechanical Ventilator 70 04/04/20 06:00 18 109/67 Mechanical Ventilator 70 04/04/20 06:00 78 18 109/67 (81) 95 04/04/20 05:45 99.7 77 18 126/79 (95) 95 04/04/20 05:30 81 18 133/84 (100) 94 04/04/20 05:15 85 18 127/76 (93) 94 04/04/20 05:09 85 18 70 04/04/20 05:00 18 Mechanical Ventilator 70 04/04/20 05:00 18 127/76 Mechanical Ventilator 70 04/04/20 05:00 90 18 122/73 (89) 95 04/04/20 04:45 88 18 113/61 (78) 95 04/04/20 04:30 83 18 118/65 (82) 95 04/04/20 04:15 78 18 124/79 (94) 93 04/04/20 04:08 70 04/04/20 04:00 18 Mechanical Ventilator 70 04/04/20 04:00 18 124/79 Mechanical Ventilator 70 04/04/20 04:00 Mechanical Ventilator 04/04/20 04:00 101.6 79 18 114/69 (84) 93 04/04/20 03:45 80 18 120/72 (88) 92 04/04/20 03:35 79 04/04/20 03:30 84 18 121/69 (86) 92 04/04/20 03:15 83 18 116/70 (85) 91 04/04/20 03:00 89 18 126/82 (97) 96 04/04/20 03:00 18 Mechanical Ventilator 70 04/04/20 03:00 18 126/82 Mechanical Ventilator 70 04/04/20 02:53 86 18 70 04/04/20 02:52 18 Mechanical Ventilator 70 04/04/20 02:50 18 130/75 Mechanical Ventilator 70 04/04/20 02:45 89 18 119/68 (85) 93 04/04/20 02:30 102.1 98 18 128/72 (90) 92 04/04/20 02:28 100 18 138/75 (96) 92 04/04/20 02:25 103 18 130/75 (93) 92 04/04/20 02:15 100 18 88 04/04/20 02:00 18 Mechanical Ventilator 70 04/04/20 02:00 18 130/75 Mechanical Ventilator 70 04/04/20 02:00 104 19 153/78 (103) 91 04/04/20 01:46 102.7 04/04/20 01:45 90 18 129/67 (87) 94 04/04/20 01:30 93 18 139/66 (90) 94 04/04/20 01:15 96 18 131/69 (89) 94 04/04/20 01:03 84 18 60 04/04/20 01:00 18 Mechanical Ventilator 65 04/04/20 01:00 18 131/69 Mechanical Ventilator 65 04/04/20 01:00 99 18 135/71 (92) 93 04/04/20 01:00 99 18 135/71 (92) 93 04/04/20 00:45 100 18 155/74 (101) 93 04/04/20 00:30 106 19 160/74 (102) 94 04/04/20 00:15 89 18 139/74 (95) 94 04/04/20 00:15 89 18 139/74 (95) 94 04/04/20 00:00 65 04/04/20 00:00 87 18 141/65 (90) 94 04/04/20 00:00 Mechanical Ventilator 04/04/20 00:00 18 Mechanical Ventilator 65 04/04/20 00:00 18 139/74 Mechanical Ventilator 65 04/04/20 00:00 101.7 87 18 141/65 (90) 94 04/03/20 23:45 85 18 138/68 (91) 94 04/03/20 23:30 83 18 129/64 (85) 93 04/03/20 23:29 83 18 60 04/03/20 23:15 84 18 131/64 (86) 93 04/03/20 23:13 82 04/03/20 23:00 84 18 125/65 (85) 93 04/03/20 23:00 18 Mechanical Ventilator 65 04/03/20 23:00 18 131/64 Mechanical Ventilator 65 04/03/20 22:45 86 18 128/65 (86) 93 04/03/20 22:30 85 18 128/62 (84) 94 04/03/20 22:15 85 18 129/63 (85) 94 04/03/20 22:00 18 Mechanical Ventilator 65 04/03/20 22:00 18 129/63 Mechanical Ventilator 65 04/03/20 22:00 100.8 87 18 125/62 (83) 94 04/03/20 21:29 96 18 60 04/03/20 21:00 100.8 92 18 156/89 (111) 94 04/03/20 21:00 18 Mechanical Ventilator 65 04/03/20 21:00 18 151/83 Mechanical Ventilator 65 04/03/20 21:00 152/83 04/03/20 20:30 93 18 181/83 (115) 95 04/03/20 20:15 88 18 166/86 (112) 95 04/03/20 20:00 Mechanical Ventilator 04/03/20 20:00 65 04/03/20 20:00 101.4 83 18 153/84 (107) 95 04/03/20 20:00 18 166/86 Mechanical Ventilator 65 04/03/20 20:00 100.8 04/03/20 19:45 81 18 132/75 (94) 95 04/03/20 19:31 80 04/03/20 19:30 80 18 131/72 (91) 97 04/03/20 19:23 84 18 60 04/03/20 19:15 88 18 139/72 (94) 95 04/03/20 19:00 95 18 146/76 (99) 93 04/03/20 19:00 18 Mechanical Ventilator 65 04/03/20 19:00 18 130/75 Mechanical Ventilator 65 04/03/20 18:31 18 Mechanical Ventilator 65 04/03/20 18:00 101.6 75 18 130/67 (88) 93 04/03/20 17:55 18 Mechanical Ventilator 65 04/03/20 17:12 74 18 60 04/03/20 17:00 75 18 133/69 (90) 92 04/03/20 16:00 85 04/03/20 16:00 60 04/03/20 16:00 79 18 136/67 (90) 92 04/03/20 16:00 Mechanical Ventilator 04/03/20 15:44 18 Mechanical Ventilator 65 04/03/20 15:05 68 18 60 04/03/20 15:00 74 18 115/63 (80) 91 04/03/20 15:00 18 141/73 Mechanical Ventilator 65 Height (Feet): 5 Height (Inches): 10.00 Weight (Pounds): 240 General Appearance: other - on vent, no pressors HEENT: normocephalic, atraumatic, anicteric Respiratory/Chest: crackles/rales, rhonchi - bilaterally Cardiovascular: normal rate, regular rhythm Abdomen: normal bowel sounds, soft, non tender, no organomegaly Genitourinary: other - no joseph Extremities: no cyanosis Skin: no rash Neurologic/Psychiatric: alert, responsive Lymphatic: no neck adenopathy Musculoskeletal: no effusion CT chest: IMPRESSION: There are mild subpleural ground-glass and consolidating infiltrates in the dependent portions of both lower lobes and to lesser degree the upper lobes consistent with bilateral pneumonia. The infiltrates are typical for Covid 19. No evidence of pulmonary embolus. CT abdomen and pelvis: IMPRESSION: 1. Scattered hepatic hypodense lesions, too small to characterize on this examination without intravenous contrast. 2. Colonic diverticulosis without evidence of acute diverticulitis. 3. Scattered enlarged mesenteric lymph nodes, presumably reactive. teral pneumonia. The infiltrates are typical for Covid 19. No evidence of pulmonary embolus. Chest x-ray - 12/19/19 - Indication: Shortness of breath Technique: One view of the chest Comparison: 02/17/2020 Findings: Interim worsening of bilateral infiltrates, particularly on the right. The heart is borderline enlarged. The pleural spaces are clear. Left arm PICC is again demonstrated Impression: Worsening bilateral infiltrates over one day, likely pneumonia CT chest - 02/19/20 - IMPRESSION: Increased extensive patchy ground-glass opacities and densities throughout the lungs, suggestive of Covid 19 infection. Chest x-ray 02/23/20 - Procedure: XRAY Chest 1v As Indication: Reason For Exam: INFECT Technique: One view of the chest Comparison: 02/20/2020 Findings: Allowing for differences in exposure technique, bilateral mid and l ower lung infiltrates are probably unchanged. The heart size is normal. The pleural spaces are clear. Impression: Unchanged, over 4 days, findings as above. Chest x-ray - 02/25/20 - FINDINGS: Lungs: Interval slightly worsening bilateral airspace disease. Pleural space: Unremarkable. No pneumothorax. Heart: Unremarkable. No cardiomegaly. Mediastinum: Unremarkable. Bones/joints: Unremarkable. IMPRESSION: Interval slightly worsening bilateral airspace disease. Chest x-ray - 03/02/20 - Procedure: XRAY Chest 1v Indication: Shortness of breath Technique: One view of the chest Comparison: 02/25/2020 Findings: Bilateral interstitial and airspace infiltrates are unchanged. The heart size is normal. Left arm PICC is again demonstrated Impression: Unchanged, over one day, findings as above. Chest x-ray - 03/06/20 - Procedure: XRAY Chest 1v Indication: Shortness of breath Technique: One view of the chest Comparison: 03/02/2020 Findings: Bilateral infiltrates are unchanged. Normal heart size. Pleural spaces are clear Chest x-ray - 03/12/10 - Impression: COMPARISON: Chest radiograph March 06, 2020. FINDINGS/IMPRESSION: Improving basilar infiltrates. Follow chest radiograph recommended. The upper lung finley are clear. No pneumothorax. Stable cardiomegaly. Stable left upper extremity PICC line. anged, over 4 days, findings as above. Chest x-ray - 03/17/20 - Procedure: XRAY Chest 1v Indication: Shortness of breath Technique: One view of the chest Comparison: 03/12/2020 Findings: Left arm PICC is again demonstrated. Infiltrates are unchanged. The heart size is upper limits of normal. Impression: Unchanged, over 5 days, findings as above. Abdominal US - IMPRESSION: 1. Gallbladder is normal. 2. Hepatic steatosis. 3. 1.7 cm cyst right kidney. Impression. Chest x-ray - Procedure: XRAY Chest 1v Indication: Shortness of breath Technique: One view of the chest Comparison: 03/17/2020 Findings: Bilateral right greater than left infiltrates again demonstrated. The heart size is normal. There is a left arm PICC in good position. Impression: Unchanged, over 5 days, findings as above. Chest x-ray - 03/29/20 - Procedure: XRAY Chest 1v Indication: Cough Technique: One view of the chest Comparison: 03/28/2020 Findings: Bilateral infiltrates are unchanged or slightly worse, allowing for differences in exposure technique. The pleural spaces are clear. The heart size is normal. Stable satisfactory position of endotracheal tube, left arm PICC. Orogastric tube has retracted somewhat the position remains satisfactory. Impression: Stable to slightly worse bilateral infiltrates. 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 Interim advancement of orogastric tube as well. Bilateral infiltrates are unchanged. Left arm PICC remains Impression: Improved and now satisfactory tube positions as described. ICU nurse Maeve notified at the time of interpretation Chest x-ray - 04/02/20 - COMPARISON: Chest x-rays dated 03/31/20 and 03/12/20. FINDINGS: Lungs: No significant change in bilateral prominent interstitial markings. The lungs are otherwise clear without focal consolidation. Pleural space: Unremarkable. The costophrenic angles are sharp. No visible pneumothorax. Heart: Unremarkable. No cardiomegaly. Mediastinum: Unremarkable. Bones/joints: Unremarkable. Tubes, lines and devices: Endotracheal tube tip 6.5 cm above the sunny. NG tube tip in the distal stomach. Telemetry leads overlie the thorax. IMPRESSION: No significant change in bilateral prominent interstitial markings. Microbiology Date/Time Source Procedure Growth Status 04/02/20 16:35 Blood Blood Culture - Preliminary NO GROWTH AFTER 24 HOURS Resulted 03/29/20 18:57 Indwelling Cath Urine Culture - Final NO GROWTH AFTER 48 HOURS Complete 03/29/20 18:57 Sputum Gram Stain - Final Complete 03/29/20 18:57 Sputum Culture - Final Kat Albicans Usual Upper Respiratory Hillary Complete Microbiology Date/Time Source Procedure Growth Status 04/02/20 16:35 Blood Blood Culture - Preliminary NO GROWTH AFTER 24 HOURS Resulted 04/02/20 16:35 Blood Blood Culture - Preliminary NO GROWTH AFTER 24 HOURS Resulted Laboratory Tests Test 04/03/20 14:57 04/04/20 00:48 04/04/20 04:00 04/04/20 05:19 POC Whole Blood Glucose 129 MG/DL (74-106) H 125 MG/DL (74-106) H Pending White Blood Count 7.3 K/UL (4.8-10.8) Red Blood Count 3.50 M/UL (4.70-6.10) L Hemoglobin 9.8 G/DL (14.2-18.0) L Hematocrit 31.8 % (42.0-52.0) L Mean Corpuscular Volume 91 FL (80-99) Mean Corpuscular Hemoglobin 28.0 PG (27.0-31.0) Mean Corpuscular Hemoglobin Concent 30.9 G/DL (32.0-36.0) L Red Cell Distribution Width 16.0 % (11.6-14.8) H Platelet Count 229 K/UL (150-450) Mean Platelet Volume 6.4 FL (6.5-10.1) L Neutrophils (%) (Auto) % (45.0-75.0) Lymphocytes (%) (Auto) % (20.0-45.0) Monocytes (%) (Auto) % (1.0-10.0) Eosinophils (%) (Auto) % (0.0-3.0) Basophils (%) (Auto) % (0.0-2.0) Sodium Level 150 MMOL/L (136-145) H Potassium Level 4.3 MMOL/L (3.5-5.1) Chloride Level 113 MMOL/L (98-107) H Carbon Dioxide Level 33 MMOL/L (21-32) H Anion Gap 4 mmol/L (5-15) L Blood Urea Nitrogen 40 mg/dL (7-18) H Creatinine 0.7 MG/DL (0.55-1.30) Estimat Glomerular Filtration Rate > 60 mL/min (>60) Glucose Level 116 MG/DL (74-106) H Calcium Level 8.4 MG/DL (8.5-10.1) L Total Bilirubin 1.1 MG/DL (0.2-1.0) H Direct Bilirubin 0.6 MG/DL (0.0-0.3) H Aspartate Amino Transf (AST/SGOT) 78 U/L (15-37) H Alanine Aminotransferase (ALT/SGPT) 184 U/L (12-78) H Alkaline Phosphatase 125 U/L (46-116) H Total Protein 5.3 G/DL (6.4-8.2) L Albumin 2.2 G/DL (3.4-5.0) L Globulin 3.1 g/dL Albumin/Globulin Ratio 0.7 (1.0-2.7) L Test 04/04/20 11:06 04/04/20 12:20 Arterial Blood pH 7.466 (7.350-7.450) Arterial Blood Partial Pressure CO2 41.6 mmHg (35.0-45.0) Arterial Blood Partial Pressure O2 76.7 mmHg (75.0-100.0) Arterial Blood HCO3 29.3 mmol/L (22.0-26.0) H Arterial Blood Oxygen Saturation 95.7 % (95-100) Arterial Blood Base Excess 5.1 (-2-2) H Shemar Test Positive POC Whole Blood Glucose 158 MG/DL (74-106) H Current Medications Medications (Trade) Dose Ordered Sig/Dennis Route PRN Reason Start Time Stop Time Status Last Admin Dose Admin Acetaminophen (Tylenol) 650 mg Q4H PRN ORAL Mild Pain (Pain Scale 1-3) 03/09/20 12:00 04/08/20 11:59 04/04/20 01:16 Bisacodyl (Dulcolax) 10 mg Q12H PRN RECTAL Constipation 03/18/20 16:45 06/16/20 16:44 Chlorhexidine Gluconate (Marlen-Hex 2%) 1 applic DAILY@2000 TOPIC 03/30/20 20:00 06/28/20 19:59 04/03/20 20:00 Dextrose (Dextrose 50%) 25 ml Q30M PRN IV Hypoglycemia 03/29/20 20:45 06/27/20 20:44 Dextrose (Dextrose 50%) 50 ml Q30M PRN IV Hypoglycemia 03/29/20 20:45 06/27/20 20:44 Enoxaparin Sodium (Lovenox) 40 mg DAILY SUBQ 03/13/20 12:00 06/11/20 11:59 04/04/20 09:02 Fentanyl Citrate 250 ml @ 1 mls/hr Q24H IV 03/30/20 19:50 04/04/20 19:59 04/04/20 09:30 Fentanyl Citrate 250 ml @ 1 mls/hr Q24H IV 04/04/20 20:00 04/09/20 19:59 Furosemide (Lasix) 20 mg DAILY IV 04/03/20 09:00 04/18/20 13:59 04/04/20 09:00 Heparin Sodium/ Sodium Chloride (Heparin 1000 units/500ml Premix) 1,000 unit ONCE PRN INJ radiology procedure 04/03/20 13:00 04/05/20 12:59 Hydralazine HCl (Apresoline) 10 mg Q4H PRN IV For High Blood Pressure 03/30/20 12:15 06/28/20 12:14 04/03/20 21:00 Insulin Aspart (NovoLOG) Q6HR SUBQ 03/30/20 00:00 06/28/20 00:00 04/04/20 12:54 Labetalol HCl (Normodyne) 10 mg Q4H PRN IV sbp greater tahtn 160 03/28/20 17:30 04/27/20 17:29 Lactulose (Cephulac) 20 gm THREE TIMES A DAY ORAL 03/08/20 13:00 04/07/20 12:59 04/04/20 12:51 Lidocaine HCl (Xylocaine 1% 30ml) 30 ml ONCE PRN INJ radiology procedure 04/03/20 13:00 04/05/20 12:59 Meropenem 1 gm/ Sodium Chloride 100 ml @ 200 mls/hr Q8HR IVPB 04/02/20 22:00 04/07/20 21:59 04/04/20 13:40 Methylprednisolone Sodium Succinate (Solu-MEDROL) 40 mg EVERY 8 HOURS IVP 03/22/20 14:00 06/20/20 13:59 04/04/20 13:40 Metoclopramide HCl (Reglan) 10 mg Q6H IVP 03/30/20 15:00 04/29/20 14:59 04/04/20 08:59 Micafungin Sodium 100 mg/Sodium Chloride 100 ml @ 100 mls/hr Q24H IVPB 03/29/20 15:00 04/11/20 23:59 04/03/20 15:12 Pantoprazole (Protonix) 40 mg EVERY 12 HOURS IVP 04/01/20 21:00 05/01/20 20:59 04/04/20 09:00 Polyethylene Glycol (Miralax) 17 gm BEDTIME ORAL 03/08/20 21:00 04/07/20 20:59 04/03/20 21:07 Trimethoprim/ Sulfamethoxazole (Bactrim-DS) 1 tab Q24H ORAL 03/29/20 17:00 04/11/20 16:59 04/03/20 18:28 Vitamin D (Vitamin D) 5,000 unit DAILY ORAL 03/15/20 09:00 04/14/20 08:59 04/04/20 09:03 Kisha Salazar MD Apr 04, 2020 15:02
[2020-04-04] MEDS: Bactrim-DS 1 tab ORAL SCH (16:00)
--- NOTE | 2020-04-04 16:58 | Cardiology Progress Note ---
Assessment/Plan Assessment/Plan Acute covid 19 pneumonia hypoxemia infiltrate bilat bacteremia hypernatremia / hyponatremia mild abn lfts tachy post intubation fever fungemia hr is normal off sedation is fully awake bp seems ok hypoxemia unlikely cardiac related off anticoagulation except for dvt ppx dose tube feeding echo reviewed last on 03/28 still shows normal lv function no valve pathology no new cxr today wbc normal tele reviewed sinus remains critical bu improved is on lower fio2 nwo 60% tryign to see if weans d/w rn diuretic per dr parekh in he setting of hypernatremia not much pulm secretion covid pcr negative , however considering that it took 3 tests to finally initially identify his covid infection i am not sure if we can trust Subjective Subjective pt in covid 19 isolation intubated , responsive not communicative n the vent Objective Last 24 Hour Vital Signs Date Time Temp Pulse Resp B/P (MAP) Pulse Ox O2 Delivery O2 Flow Rate FiO2 04/04/20 16:23 60 04/04/20 16:00 70 04/04/20 16:00 Mechanical Ventilator 04/04/20 16:00 83 04/04/20 16:00 90 20 151/80 (103) 93 04/04/20 15:25 82 18 70 04/04/20 15:00 72 18 153/85 (107) 93 04/04/20 14:45 73 14 132/71 (91) 95 04/04/20 14:30 76 16 138/74 (95) 96 04/04/20 14:15 70 18 131/75 (93) 95 04/04/20 14:00 70 20 133/74 (93) 95 04/04/20 14:00 20 133/74 Mechanical Ventilator 70 04/04/20 13:45 70 18 142/70 (94) 94 04/04/20 13:45 18 142/70 Mechanical Ventilator 70 04/04/20 13:10 82 18 70 04/04/20 13:00 70 18 151/80 (103) 95 04/04/20 13:00 18 151/80 Mechanical Ventilator 70 04/04/20 12:15 67 18 146/78 (100) 94 04/04/20 12:00 Mechanical Ventilator 04/04/20 12:00 97.0 64 18 140/76 (97) 94 04/04/20 12:00 71 04/04/20 12:00 70 04/04/20 12:00 18 140/76 Mechanical Ventilator 70 04/04/20 11:45 68 18 137/86 (103) 94 04/04/20 11:30 65 18 131/58 (82) 93 04/04/20 11:15 69 18 146/79 (101) 95 04/04/20 11:00 65 18 138/80 (99) 95 04/04/20 11:00 70 18 70 04/04/20 11:00 18 138/80 Mechanical Ventilator 70 04/04/20 10:45 68 18 148/88 (108) 95 04/04/20 10:30 68 19 138/77 (97) 94 04/04/20 10:15 66 18 134/73 (93) 94 04/04/20 10:00 18 131/77 Mechanical Ventilator 70 04/04/20 10:00 64 18 131/77 (95) 94 04/04/20 09:45 65 18 130/76 (94) 96 04/04/20 09:30 18 103/63 Mechanical Ventilator 70 04/04/20 09:30 72 17 124/81 (95) 96 04/04/20 09:29 18 Mechanical Ventilator 70 04/04/20 09:15 60 18 103/63 (76) 96 04/04/20 09:00 18 Mechanical Ventilator 70 04/04/20 09:00 18 99/67 Mechanical Ventilator 70 04/04/20 09:00 58 18 99/67 (78) 95 04/04/20 08:45 18 Mechanical Ventilator 70 04/04/20 08:45 57 18 103/67 (79) 95 04/04/20 08:30 18 Mechanical Ventilator 70 04/04/20 08:30 62 18 101/68 (79) 95 04/04/20 08:15 18 Mechanical Ventilator 70 04/04/20 08:15 97.0 68 18 102/61 (75) 96 04/04/20 08:12 68 04/04/20 08:00 64 18 108/68 (81) 94 04/04/20 08:00 70 04/04/20 08:00 18 Mechanical Ventilator 70 04/04/20 08:00 18 108/68 Mechanical Ventilator 70 04/04/20 08:00 Mechanical Ventilator 04/04/20 07:30 65 18 113/68 (83) 94 04/04/20 07:00 72 18 70 2/2/21 07:00 18 Mechanical Ventilator 70 04/04/20 07:00 18 101/61 Mechanical Ventilator 70 04/04/20 07:00 75 18 101/61 (74) 95 04/04/20 06:45 98.9 69 18 106/67 (80) 94 04/04/20 06:30 72 18 113/66 (82) 94 04/04/20 06:15 76 18 111/64 (80) 95 04/04/20 06:00 18 Mechanical Ventilator 70 04/04/20 06:00 18 109/67 Mechanical Ventilator 70 04/04/20 06:00 78 18 109/67 (81) 95 04/04/20 05:45 99.7 77 18 126/79 (95) 95 04/04/20 05:30 81 18 133/84 (100) 94 04/04/20 05:15 85 18 127/76 (93) 94 04/04/20 05:09 85 18 70 04/04/20 05:00 18 Mechanical Ventilator 70 04/04/20 05:00 18 127/76 Mechanical Ventilator 70 04/04/20 05:00 90 18 122/73 (89) 95 04/04/20 04:45 88 18 113/61 (78) 95 04/04/20 04:30 83 18 118/65 (82) 95 04/04/20 04:15 78 18 124/79 (94) 93 04/04/20 04:08 70 04/04/20 04:00 18 Mechanical Ventilator 70 04/04/20 04:00 18 124/79 Mechanical Ventilator 70 04/04/20 04:00 Mechanical Ventilator 04/04/20 04:00 101.6 79 18 114/69 (84) 93 04/04/20 03:45 80 18 120/72 (88) 92 04/04/20 03:35 79 04/04/20 03:30 84 18 121/69 (86) 92 04/04/20 03:15 83 18 116/70 (85) 91 04/04/20 03:00 89 18 126/82 (97) 96 04/04/20 03:00 18 Mechanical Ventilator 70 04/04/20 03:00 18 126/82 Mechanical Ventilator 70 04/04/20 02:53 86 18 70 04/04/20 02:52 18 Mechanical Ventilator 70 04/04/20 02:50 18 130/75 Mechanical Ventilator 70 04/04/20 02:45 89 18 119/68 (85) 93 04/04/20 02:30 102.1 98 18 128/72 (90) 92 04/04/20 02:28 100 18 138/75 (96) 92 04/04/20 02:25 103 18 130/75 (93) 92 04/04/20 02:15 100 18 88 04/04/20 02:00 18 Mechanical Ventilator 70 04/04/20 02:00 18 130/75 Mechanical Ventilator 70 04/04/20 02:00 104 19 153/78 (103) 91 04/04/20 01:46 102.7 04/04/20 01:45 90 18 129/67 (87) 94 04/04/20 01:30 93 18 139/66 (90) 94 04/04/20 01:15 96 18 131/69 (89) 94 04/04/20 01:03 84 18 60 04/04/20 01:00 18 Mechanical Ventilator 65 04/04/20 01:00 18 131/69 Mechanical Ventilator 65 04/04/20 01:00 99 18 135/71 (92) 93 04/04/20 01:00 99 18 135/71 (92) 93 04/04/20 00:45 100 18 155/74 (101) 93 04/04/20 00:30 106 19 160/74 (102) 94 04/04/20 00:15 89 18 139/74 (95) 94 04/04/20 00:15 89 18 139/74 (95) 94 04/04/20 00:00 65 04/04/20 00:00 87 18 141/65 (90) 94 04/04/20 00:00 Mechanical Ventilator 04/04/20 00:00 18 Mechanical Ventilator 65 04/04/20 00:00 18 139/74 Mechanical Ventilator 65 04/04/20 00:00 101.7 87 18 141/65 (90) 94 04/03/20 23:45 85 18 138/68 (91) 94 04/03/20 23:30 83 18 129/64 (85) 93 04/03/20 23:29 83 18 60 04/03/20 23:15 84 18 131/64 (86) 93 04/03/20 23:13 82 04/03/20 23:00 84 18 125/65 (85) 93 04/03/20 23:00 18 Mechanical Ventilator 65 04/03/20 23:00 18 131/64 Mechanical Ventilator 65 04/03/20 22:45 86 18 128/65 (86) 93 04/03/20 22:30 85 18 128/62 (84) 94 04/03/20 22:15 85 18 129/63 (85) 94 04/03/20 22:00 18 Mechanical Ventilator 65 04/03/20 22:00 18 129/63 Mechanical Ventilator 65 04/03/20 22:00 100.8 87 18 125/62 (83) 94 04/03/20 21:29 96 18 60 04/03/20 21:00 100.8 92 18 156/89 (111) 94 04/03/20 21:00 18 Mechanical Ventilator 65 04/03/20 21:00 18 151/83 Mechanical Ventilator 65 04/03/20 21:00 152/83 04/03/20 20:30 93 18 181/83 (115) 95 04/03/20 20:15 88 18 166/86 (112) 95 04/03/20 20:00 Mechanical Ventilator 04/03/20 20:00 65 04/03/20 20:00 101.4 83 18 153/84 (107) 95 04/03/20 20:00 18 166/86 Mechanical Ventilator 65 04/03/20 20:00 100.8 04/03/20 19:45 81 18 132/75 (94) 95 04/03/20 19:31 80 04/03/20 19:30 80 18 131/72 (91) 97 04/03/20 19:23 84 18 60 04/03/20 19:15 88 18 139/72 (94) 95 04/03/20 19:00 95 18 146/76 (99) 93 04/03/20 19:00 18 Mechanical Ventilator 65 04/03/20 19:00 18 130/75 Mechanical Ventilator 65 04/03/20 18:31 18 Mechanical Ventilator 65 04/03/20 18:00 101.6 75 18 130/67 (88) 93 04/03/20 17:55 18 Mechanical Ventilator 65 04/03/20 17:12 74 18 60 04/03/20 17:00 75 18 133/69 (90) 92 General Appearance: no apparent distress, alert, on vent, patient on isolation Extremities: no swelling Intake and Output 04/03/20 04/04/20 19:00 07:00 Intake Total 40 ml 1205 ml Output Total 1527 ml 1020 ml Balance -1487 ml 185 ml Intake Oral 0 ml Free Water 250 ml IV Total 40 ml 470 ml Tube Feeding 0 ml 300 ml Blood Product 125 ml Other 60 ml Output Urine Total 1527 ml 595 ml Stool Total 425 ml Laboratory Tests Test 04/04/20 00:48 04/04/20 04:00 04/04/20 05:19 04/04/20 11:06 POC Whole Blood Glucose 125 MG/DL (74-106) H Pending White Blood Count 7.3 K/UL (4.8-10.8) Red Blood Count 3.50 M/UL (4.70-6.10) L Hemoglobin 9.8 G/DL (14.2-18.0) L Hematocrit 31.8 % (42.0-52.0) L Mean Corpuscular Volume 91 FL (80-99) Mean Corpuscular Hemoglobin 28.0 PG (27.0-31.0) Mean Corpuscular Hemoglobin Concent 30.9 G/DL (32.0-36.0) L Red Cell Distribution Width 16.0 % (11.6-14.8) H Platelet Count 229 K/UL (150-450) Mean Platelet Volume 6.4 FL (6.5-10.1) L Neutrophils (%) (Auto) % (45.0-75.0) Lymphocytes (%) (Auto) % (20.0-45.0) Monocytes (%) (Auto) % (1.0-10.0) Eosinophils (%) (Auto) % (0.0-3.0) Basophils (%) (Auto) % (0.0-2.0) Sodium Level 150 MMOL/L (136-145) H Potassium Level 4.3 MMOL/L (3.5-5.1) Chloride Level 113 MMOL/L (98-107) H Carbon Dioxide Level 33 MMOL/L (21-32) H Anion Gap 4 mmol/L (5-15) L Blood Urea Nitrogen 40 mg/dL (7-18) H Creatinine 0.7 MG/DL (0.55-1.30) Estimat Glomerular Filtration Rate > 60 mL/min (>60) Glucose Level 116 MG/DL (74-106) H Calcium Level 8.4 MG/DL (8.5-10.1) L Total Bilirubin 1.1 MG/DL (0.2-1.0) H Direct Bilirubin 0.6 MG/DL (0.0-0.3) H Aspartate Amino Transf (AST/SGOT) 78 U/L (15-37) H Alanine Aminotransferase (ALT/SGPT) 184 U/L (12-78) H Alkaline Phosphatase 125 U/L (46-116) H Total Protein 5.3 G/DL (6.4-8.2) L Albumin 2.2 G/DL (3.4-5.0) L Globulin 3.1 g/dL Albumin/Globulin Ratio 0.7 (1.0-2.7) L Arterial Blood pH 7.466 (7.350-7.450) Arterial Blood Partial Pressure CO2 41.6 mmHg (35.0-45.0) Arterial Blood Partial Pressure O2 76.7 mmHg (75.0-100.0) Arterial Blood HCO3 29.3 mmol/L (22.0-26.0) H Arterial Blood Oxygen Saturation 95.7 % (95-100) Arterial Blood Base Excess 5.1 (-2-2) H Shemar Test Positive Test 04/04/20 12:20 POC Whole Blood Glucose 158 MG/DL (74-106) H Microbiology Date/Time Source Procedure Growth Status 04/02/20 16:35 Blood Blood Culture - Preliminary NO GROWTH AFTER 24 HOURS Resulted 04/02/20 16:35 Blood Blood Culture - Preliminary NO GROWTH AFTER 24 HOURS Resulted Objective pt in covid 19 isoaltion with acute infection Manan Awan MD Apr 04, 2020 16:58
--- NOTE | 2020-04-04 16:59 | NUR ---
INSURANCE CLINCALS/REVIEW FAXED TO [employer] T: [phone] #1 F: [phone] AND ALFRED SURVEY ANALYST:JACQUELINE JAMES [phone] F: [phone]
--- NOTE | 2020-04-04 19:30 | NUR ---
NURSE NOTES: Received orally intubated on ac mode, sedated with Fentanyl drip at 290mcg/min for RASS SCORE-2, bilateral soft wrist restraints maintained for safety to avoid self extubation, SB 57/min- SR , Bp stable afebrile. Checked residuals 15ml were noted fdg resumed, at 50ml/hr. HOB kept elevated On aspiration precaution.Pt has 2+ edema to both hands and slight scleral edema., elevated affected parts with pillows. Brownlee to gravity with jeff yellow urine,monitor I and o, monitor lytes.Will continue to monitor.
[2020-04-04] MEDS: Dyna-Hex 2% Top Sol 2oz TOPIC SCH (19:39)
--- NOTE | 2020-04-04 20:27 | NUR ---
NURSE NOTES: Pt on sinus bradycardia rate 57/min, as well as pt well sedated at this time. Started to taper Fentanyl drip. Pls see titration.
[2020-04-04] MEDS: Miralax 17gm pkt ORAL SCH (21:00)
--- NOTE | 2020-04-04 22:00 | NUR ---
NURSE NOTES: Suctioned tn beige secretions minimal in amt. oral care done. 02 sat >92%. HOB kept elevated. Watch for any resp. distress.
[2020-04-05] VITALS (50 sets, daily range): BP systolic 105–214; BP diastolic 60–121
--- NOTE | 2020-04-05 | NUR ---
NURSE NOTES: Accucheck 124mg/dl , no coverage.
--- NOTE | 2020-04-05 01:00 | NUR ---
NURSE NOTES: Turned q 2hrs PRN with good skin care was done.
--- NOTE | 2020-04-05 03:00 | NUR ---
NURSE NOTES: Tube fdg residuals>100. fdg on hold,
[2020-04-05] MEDS: Metoclopramide 10mg/2ml Inj IVP SCH ×4 (03:40→20:05)
--- NOTE | 2020-04-05 04:00 | NUR ---
NURSE NOTES: Turned off sedation for weaning.
--- NOTE | 2020-04-05 05:00 | NUR ---
NURSE NOTES: Complete bath with bed changed was done.
[2020-04-05 05:11] LABS: HEMATOCRIT 37.7 % (42.0-52.0); HEMOGLOBIN 11.8 G/DL (14.2-18.0); MEAN CORPUSCULAR VOLUME 90 FL (80-99); PLATELET COUNT 266 K/UL (150-450); RED CELL DISTRIBUTION WIDTH 15.8 % (11.6-14.8); WHITE BLOOD COUNT 11.1 K/UL (4.8-10.8)
[2020-04-05 05:50] LABS: ALANINE AMINOTRANSFERASE 329 U/L (12-78); ALBUMIN 2.5 G/DL (3.4-5.0); ALBUMIN/GLOBULIN RATIO 0.7 (1.0-2.7); ALKALINE PHOSPHATASE 165 U/L (46-116); ANION GAP 5 mmol/L (5-15); ASPARTATE AMINO TRANSFERASE 125 U/L (15-37); BILIRUBIN,TOTAL 1.2 MG/DL (0.2-1.0); BLOOD UREA NITROGEN 40 mg/dL (7-18); CALCIUM 8.8 MG/DL (8.5-10.1); CARBON DIOXIDE 33 MMOL/L (21-32); CHLORIDE 112 MMOL/L (98-107); CREATININE 0.6 MG/DL (0.55-1.30); SODIUM 150 MMOL/L (136-145)
[2020-04-05 05:52] LABS: BILIRUBIN,DIRECT 0.7 MG/DL (0.0-0.3)
[2020-04-05 05:55] LABS: PHOSPHORUS 3.1 MG/DL (2.5-4.9)
[2020-04-05] MEDS: Solu-MEDROL 40mg Inj IVP SCH ×3 (06:16→22:24)
[2020-04-05] MEDS: NovoLOG Insulin Flexpen SUBQ SCH ×3 (06:17→17:45)
--- NOTE | 2020-04-05 06:30 | NUR ---
NURSE NOTES: No resp distress noted, AO x4, and cooperative.
--- NOTE | 2020-04-05 07:16 | NUR ---
NURSE HAND-OFF REPORT: Latest Vital Signs: Temperature 99.0 , Pulse 107 , B/P 135 /60 , Respiratory Rate 23 , O2 SAT 93 , Mechanical Ventilator, O2 Flow Rate . Vital Sign Comment: EKG Rhythm: Sinus Tachycardia Rhythm change?: N Notified?: Courtney Paige MD Response: Message left await call Latest Hassan Fall Score: 50 Fall Risk: High Risk Safety Measures: Call light Within Reach, Bed Alarm Zone 1, Side Rails Side Rails x3, Bed position Low and Locked. Fall Precautions: Yellow Socks Yellow Gown Door Sign Patient Fall Education Report given to Kevin MATHEW.
--- NOTE | 2020-04-05 07:45 | NUR ---
NURSE NOTES: Report received from PRIYANKA Hayden. Patient is awake and alert to name and time, he is awake watching television and able to communicate by nodding yes/no questions, tube feeding has been placed on hold for residuals of 100mls over two consecutive hours, remains on mechanical ventilator with setting of 12, Tv: 750, Fio2 60, Peep of 8 with saturations ranging from 87-88%, he is on bilateral wrist restraints for possible weaning trials to begin, patient is on cooling blanket with temperature of 99.0 F taken rectally. will continue to monitor.
--- NOTE | 2020-04-05 08:59 | NUR ---
CASE MANAGEMENT:REVIEW 04/05/20 SI: COVID PNA. UTI. RESP FAILURE~INTUBATED 99.0 121 24 154/88 95% ON VENT SUPPORT W/70% FIO2 WBC+11.1 H/H-9.8/37.7 NA+150 BUN+40 IS: FENTANYL GTT IV LASIX QD IV MEROPENEM Q8HRS IV PROTONIX Q12 IV MICAFUNGIN Q24 IV SOLUMEDROL Q8HRS LOVENOX SQ QD BACTRIM PO Q24 : ICU STATUS
[2020-04-05] MEDS: Vitamin D 1000 units Tab ORAL SCH (09:34)
[2020-04-05] MEDS: Pantoprazole Inj IVP SCH ×2 (09:34→20:05)
[2020-04-05] MEDS: Lactulose 20gm/30ml UDC ORAL SCH (09:35)
[2020-04-05] MEDS: Enoxaparin 40mg Inj SUBQ SCH (09:35)
--- NOTE | 2020-04-05 10:10 | NUR ---
NURSE NOTES: Fentanyl restarted at rate of 200mcg/hr at rate of 20ml/hr. patient remains on restraints during sedation rass of -2 is reached, he is awake and responds to verbal questions with nodding head for yes/no answers. denies any pain over the chest, bilateral wrist skin is intact, patient remains on ventilator setting of AC 12, TV: 750, FIO2 70% and peep of 8. he is currently saturating at 94-96%
--- NOTE | 2020-04-05 10:29 | NUR ---
NURSE NOTES: Dr. parekh updated in the patient chemistry lab results and urine output at the bedside, notified the sodium level this morning is 150 and patient urine output is straw color, no verbal orders given
--- NOTE | 2020-04-05 10:44 | Pulmonology Progress Note ---
Subjective ROS Limited/Unobtainable: Yes Interval Events: Intubated 03/28/20 Constitutional: Reports: fever, fatigue, other - + vent, more alert, no pressors HEENT: Repors: no symptoms Respiratory: Reports: dry cough, shortness of breath Cardiovascular: Reports: no symptoms Gastrointestinal/Abdominal: Denies: nausea, vomiting, diarrhea Psychiatric: Reports: other - NA Skin: Denies: rash Musculoskeletal: Reports: other - NA Allergies: Coded Allergies: No Known Allergies (Unverified , 02/05/20) Objective Last 24 Hour Vital Signs Date Time Temp Pulse Resp B/P (MAP) Pulse Ox O2 Delivery O2 Flow Rate FiO2 04/05/20 09:00 78 22 158/87 (110) 92 04/05/20 08:30 83 21 151/77 (101) 93 04/05/20 08:04 80 22 165/104 (124) 95 04/05/20 08:00 Mechanical Ventilator 04/05/20 08:00 99.0 74 23 214/96 (135) 94 04/05/20 08:00 70 04/05/20 07:30 72 22 152/90 (110) 91 04/05/20 07:00 79 21 145/81 (102) 92 04/05/20 06:30 83 23 157/86 (109) 91 04/05/20 06:00 107 23 135/60 (85) 93 04/05/20 05:30 107 23 160/89 (112) 93 04/05/20 05:00 121 24 154/88 (110) 94 04/05/20 04:30 118 22 158/95 (116) 94 04/05/20 04:00 60 04/05/20 04:00 99.0 109 20 159/95 (116) 94 04/05/20 04:00 Mechanical Ventilator 04/05/20 04:00 21 150/50 Mechanical Ventilator 70 04/05/20 04:00 112 04/05/20 03:30 90 20 141/86 (104) 95 04/05/20 03:27 20 141/86 Mechanical Ventilator 70 04/05/20 03:15 70 04/05/20 03:14 97 20 60 04/05/20 03:00 96 18 145/93 (110) 92 04/05/20 02:30 96 19 139/83 (101) 92 04/05/20 02:27 19 139/83 Mechanical Ventilator 70 04/05/20 02:00 91 21 152/104 (120) 90 04/05/20 01:30 96 19 144/86 (105) 91 04/05/20 01:27 20 139/83 Mechanical Ventilator 60 04/05/20 01:00 88 19 142/80 (100) 91 04/05/20 00:30 75 18 138/83 (101) 93 04/05/20 00:27 20 150/104 Mechanical Ventilator 60 04/05/20 00:00 60 04/05/20 00:00 80 04/05/20 00:00 Mechanical Ventilator 04/05/20 00:00 97.9 99 22 140/85 (103) 90 04/04/20 23:30 106 18 60 04/04/20 23:30 72 18 126/79 (95) 94 04/04/20 23:27 21 128/84 Mechanical Ventilator 15.0 60 04/04/20 23:00 70 18 128/84 (99) 94 04/04/20 22:27 21 148/82 Mechanical Ventilator 60 04/04/20 22:12 19 140/85 Mechanical Ventilator 60 04/04/20 22:00 63 18 110/70 (83) 94 04/04/20 21:57 20 110/70 Mechanical Ventilator 60 04/04/20 21:42 18 116/74 Mechanical Ventilator 60 04/04/20 21:30 64 18 107/62 (77) 94 04/04/20 21:27 21 107/62 Mechanical Ventilator 60 04/04/20 21:12 21 110/60 Mechanical Ventilator 60 04/04/20 21:00 55 18 116/74 (88) 94 04/04/20 20:57 20 114/71 Mechanical Ventilator 60 04/04/20 20:42 18 125/71 Mechanical Ventilator 60 04/04/20 20:30 57 18 120/70 (87) 94 04/04/20 20:27 21 139/60 Mechanical Ventilator 60 04/04/20 20:00 60 04/04/20 20:00 98.9 62 18 125/71 (89) 93 04/04/20 20:00 83 04/04/20 20:00 Mechanical Ventilator 04/04/20 19:50 21 139/60 Mechanical Ventilator 60 04/04/20 19:30 67 18 119/75 (90) 93 04/04/20 19:00 71 18 60 04/04/20 17:59 98 23 157/89 (111) 91 04/04/20 17:00 99.3 88 18 146/80 (102) 90 04/04/20 16:23 60 04/04/20 16:00 70 04/04/20 16:00 Mechanical Ventilator 04/04/20 16:00 83 04/04/20 16:00 90 20 151/80 (103) 93 04/04/20 15:25 82 18 70 04/04/20 15:00 20 156/87 04/04/20 15:00 72 18 153/85 (107) 93 04/04/20 14:45 73 14 132/71 (91) 95 04/04/20 14:30 76 16 138/74 (95) 96 04/04/20 14:15 70 18 131/75 (93) 95 04/04/20 14:00 70 20 133/74 (93) 95 04/04/20 14:00 20 133/74 Mechanical Ventilator 70 04/04/20 13:45 70 18 142/70 (94) 94 04/04/20 13:45 18 142/70 Mechanical Ventilator 70 04/04/20 13:10 82 18 70 04/04/20 13:00 70 18 151/80 (103) 95 04/04/20 13:00 18 151/80 Mechanical Ventilator 70 04/04/20 12:15 67 18 146/78 (100) 94 04/04/20 12:00 Mechanical Ventilator 04/04/20 12:00 97.0 64 18 140/76 (97) 94 04/04/20 12:00 71 04/04/20 12:00 70 04/04/20 12:00 18 140/76 Mechanical Ventilator 70 04/04/20 11:45 68 18 137/86 (103) 94 04/04/20 11:30 65 18 131/58 (82) 93 04/04/20 11:15 69 18 146/79 (101) 95 04/04/20 11:00 65 18 138/80 (99) 95 04/04/20 11:00 70 18 70 04/04/20 11:00 18 138/80 Mechanical Ventilator 70 04/04/20 10:45 68 18 148/88 (108) 95 Intake and Output 04/04/20 04/05/20 19:00 07:00 Intake Total 593.22 ml 624.00 ml Output Total 410 ml 780 ml Balance 183.22 ml -156.00 ml IV Total 443.22 ml 274.00 ml Tube Feeding 150 ml 350 ml Output Urine Total 410 ml 680 ml Stool Total 100 ml General Appearance: WD/WN, no acute distress HEENT: normocephalic, atraumatic Respiratory: chest wall non-tender Cardiovascular: normal rate, regular rhythm Abdomen: normal bowel sounds, soft, non tender, other - obese Microbiology Date/Time Source Procedure Growth Status 04/02/20 16:35 Blood Blood Culture - Preliminary NO GROWTH AFTER 48 HOURS Resulted 04/02/20 16:35 Blood Blood Culture - Preliminary NO GROWTH AFTER 48 HOURS Resulted Laboratory Tests 04/04/20 11:06: Arterial Blood pH 7.466H, Arterial Blood Partial Pressure CO2 41.6, Arterial Blood Partial Pressure O2 76.7, Arterial Blood HCO3 29.3H, Arterial Blood Oxygen Saturation 95.7, Arterial Blood Base Excess 5.1H, Shemar Test Positive 04/04/20 12:20: POC Whole Blood Glucose 158H 04/05/20 04:00: White Blood Count 11.1#H, Red Blood Count 4.20L, Hemoglobin 11.8L, Hematocrit 37.7L, Mean Corpuscular Volume 90, Mean Corpuscular Hemoglobin 28.2, Mean Corpuscular Hemoglobin Concent 31.4L, Red Cell Distribution Width 15.8H, Platelet Count 266, Mean Platelet Volume 6.5, Neutrophils (%) (Auto) , Lymp hocytes (%) (Auto) , Monocytes (%) (Auto) , Eosinophils (%) (Auto) , Basophils (%) (Auto) , Differential Total Cells Counted 100, Neutrophils % (Manual) 93H, Lymphocytes % (Manual) 3L, Monocytes % (Manual) 4, Eosinophils % (Manual) 0, Basophils % (Manual) 0, Band Neutrophils 0, Platelet Estimate Adequate, Platelet Morphology Normal, Hypochromasia 1+, Anisocytosis 1+, Sodium Level 150H, Potassium Level 4.0, Chloride Level 112H, Carbon Dioxide Level 33H, Anion Gap 5, Blood Urea Nitrogen 40H, Creatinine 0.6, Estimat Glomerular Filtration Rate > 60, Glucose Level 159H, Calcium Level 8.8, Phosphorus Level 3.1, Magnesium Level 2.6H, Total Bilirubin 1.2H, Direct Bilirubin 0.7H, Aspartate Amino Transf (AST/SGOT) 125H, Alanine Aminotransferase (ALT/SGPT) 329H, Alkaline Phosphatase 165H, C-Reactive Protein, Quantitative < 0.4, Pro-B-Type Natriuretic Peptide 536H, Total Protein 5.9L, Albumin 2.5L, Globulin 3.4, Albumin/Globulin Ratio 0.7L Current Medications Medications (Trade) Dose Ordered Sig/Dennis Route PRN Reason Start Time Stop Time Status Last Admin Dose Admin Acetaminophen (Tylenol) 650 mg Q4H PRN ORAL Mild Pain (Pain Scale 1-3) 03/09/20 12:00 04/08/20 11:59 04/04/20 01:16 Bisacodyl (Dulcolax) 10 mg Q12H PRN RECTAL Constipation 03/18/20 16:45 06/16/20 16:44 Chlorhexidine Gluconate (Marlen-Hex 2%) 1 applic DAILY@2000 TOPIC 03/30/20 20:00 06/28/20 19:59 04/04/20 19:39 Dextrose (Dextrose 50%) 25 ml Q30M PRN IV Hypoglycemia 03/29/20 20:45 06/27/20 20:44 Dextrose (Dextrose 50%) 50 ml Q30M PRN IV Hypoglycemia 03/29/20 20:45 06/27/20 20:44 Enoxaparin Sodium (Lovenox) 40 mg DAILY SUBQ 03/13/20 12:00 06/11/20 11:59 04/05/20 09:35 Fentanyl Citrate 250 ml @ 1 mls/hr Q24H IV 04/04/20 20:00 04/09/20 19:59 04/04/20 20:27 Furosemide (Lasix) 20 mg DAILY IV 04/03/20 09:00 04/18/20 13:59 04/05/20 09:34 Heparin Sodium/ Sodium Chloride (Heparin 1000 units/500ml Premix) 1,000 unit ONCE PRN INJ radiology procedure 04/03/20 13:00 04/05/20 12:59 Hydralazine HCl (Apresoline) 10 mg Q4H PRN IV For High Blood Pressure 03/30/20 12:15 06/28/20 12:14 04/03/20 21:00 Insulin Aspart (NovoLOG) Q6HR SUBQ 03/30/20 00:00 06/28/20 00:00 04/05/20 06:17 Labetalol HCl (Normodyne) 10 mg Q4H PRN IV sbp greater tahtn 160 03/28/20 17:30 04/27/20 17:29 Lactulose (Cephulac) 20 gm THREE TIMES A DAY ORAL 03/08/20 13:00 04/07/20 12:59 04/05/20 09:35 Lidocaine HCl (Xylocaine 1% 30ml) 30 ml ONCE PRN INJ radiology procedure 04/03/20 13:00 04/05/20 12:59 Meropenem 1 gm/ Sodium Chloride 100 ml @ 200 mls/hr Q8HR IVPB 04/02/20 22:00 04/07/20 21:59 04/05/20 06:16 Methylprednisolone Sodium Succinate (Solu-MEDROL) 40 mg EVERY 8 HOURS IVP 03/22/20 14:00 06/20/20 13:59 04/05/20 06:16 Metoclopramide HCl (Reglan) 10 mg Q6H IVP 03/30/20 15:00 04/29/20 14:59 04/05/20 09:33 Micafungin Sodium 100 mg/Sodium Chloride 100 ml @ 100 mls/hr Q24H IVPB 03/29/20 15:00 04/11/20 23:59 04/04/20 15:00 Pantoprazole (Protonix) 40 mg EVERY 12 HOURS IVP 04/01/20 21:00 05/01/20 20:59 04/05/20 09:34 Polyethylene Glycol (Miralax) 17 gm BEDTIME ORAL 03/08/20 21:00 04/07/20 20:59 04/03/20 21:07 Trimethoprim/ Sulfamethoxazole (Bactrim-DS) 1 tab Q24H ORAL 03/29/20 17:00 04/11/20 16:59 04/04/20 16:00 Vitamin D (Vitamin D) 5,000 unit DAILY ORAL 03/15/20 09:00 04/14/20 08:59 04/05/20 09:34 Assessment/Plan Assessment/Plan Assessment/Plan 1.COVID-19 pneumonia. - Completed specific therapies - On solumedrol 2. DVT ppx - on lovenox 3. Hypertension - no longer on meds - May need pressors 4. Leukocytosis; - ID following - On abx - Budding yeast on blood CS 5. Elevated LFT - positive Hep C; treated in the past with IF 6. Respiratory failure -Intubated 03/28/20 -Family aware - Prognosis grave - Increased Vt to 750; rate to 18 -On Fentanyl 7. Discussed with cardiology -No evidence for cardiac dysfunction or PE -tachycardic; will increase sedation 8. AMS -Has had a change in mental status -back on sedation - has apparent left arm paresis - Will consider CT brain when more stable S/p new PICC line On abx Slowly improving oxygenation John Mata MD Apr 05, 2020 10:43
--- NOTE | 2020-04-05 10:45 | NUR ---
NURSE NOTES: Dr. Mata notified of patient progress this morning, respiratory therapist increased the FIO2 to 70% this morning due to saturations dropping to 87-88%. after FIo2 increased to 70%, saturations increased to 93-96%. patient remained more calm and relaxed with the oxygen increase.
--- NOTE | 2020-04-05 10:54 | General Progress Note ---
Subjective ROS Limited/Unobtainable: No Allergies: Coded Allergies: No Known Allergies (Unverified , 02/05/20) Objective Last 24 Hour Vital Signs Date Time Temp Pulse Resp B/P (MAP) Pulse Ox O2 Delivery O2 Flow Rate FiO2 04/05/20 10:30 92 19 163/118 (133) 93 04/05/20 10:00 87 23 165/121 (136) 94 04/05/20 09:30 86 19 167/97 (120) 93 04/05/20 09:00 78 22 158/87 (110) 92 04/05/20 08:30 83 21 151/77 (101) 93 04/05/20 08:04 80 22 165/104 (124) 95 04/05/20 08:00 Mechanical Ventilator 04/05/20 08:00 99.0 74 23 214/96 (135) 94 04/05/20 08:00 70 04/05/20 07:30 72 22 152/90 (110) 91 04/05/20 07:00 79 21 145/81 (102) 92 04/05/20 06:30 83 23 157/86 (109) 91 04/05/20 06:00 107 23 135/60 (85) 93 04/05/20 05:30 107 23 160/89 (112) 93 04/05/20 05:00 121 24 154/88 (110) 94 04/05/20 04:30 118 22 158/95 (116) 94 04/05/20 04:00 60 04/05/20 04:00 99.0 109 20 159/95 (116) 94 04/05/20 04:00 Mechanical Ventilator 04/05/20 04:00 21 150/50 Mechanical Ventilator 70 04/05/20 04:00 112 04/05/20 03:30 90 20 141/86 (104) 95 04/05/20 03:27 20 141/86 Mechanical Ventilator 70 04/05/20 03:15 70 04/05/20 03:14 97 20 60 04/05/20 03:00 96 18 145/93 (110) 92 04/05/20 02:30 96 19 139/83 (101) 92 04/05/20 02:27 19 139/83 Mechanical Ventilator 70 04/05/20 02:00 91 21 152/104 (120) 90 2/3/21 01:30 96 19 144/86 (105) 91 04/05/20 01:27 20 139/83 Mechanical Ventilator 60 04/05/20 01:00 88 19 142/80 (100) 91 04/05/20 00:30 75 18 138/83 (101) 93 04/05/20 00:27 20 150/104 Mechanical Ventilator 60 04/05/20 00:00 60 04/05/20 00:00 80 04/05/20 00:00 Mechanical Ventilator 04/05/20 00:00 97.9 99 22 140/85 (103) 90 04/04/20 23:30 106 18 60 04/04/20 23:30 72 18 126/79 (95) 94 04/04/20 23:27 21 128/84 Mechanical Ventilator 15.0 60 04/04/20 23:00 70 18 128/84 (99) 94 04/04/20 22:27 21 148/82 Mechanical Ventilator 60 04/04/20 22:12 19 140/85 Mechanical Ventilator 60 04/04/20 22:00 63 18 110/70 (83) 94 04/04/20 21:57 20 110/70 Mechanical Ventilator 60 04/04/20 21:42 18 116/74 Mechanical Ventilator 60 04/04/20 21:30 64 18 107/62 (77) 94 04/04/20 21:27 21 107/62 Mechanical Ventilator 60 04/04/20 21:12 21 110/60 Mechanical Ventilator 60 04/04/20 21:00 55 18 116/74 (88) 94 04/04/20 20:57 20 114/71 Mechanical Ventilator 60 04/04/20 20:42 18 125/71 Mechanical Ventilator 60 04/04/20 20:30 57 18 120/70 (87) 94 04/04/20 20:27 21 139/60 Mechanical Ventilator 60 04/04/20 20:00 60 04/04/20 20:00 98.9 62 18 125/71 (89) 93 04/04/20 20:00 83 04/04/20 20:00 Mechanical Ventilator 04/04/20 19:50 21 139/60 Mechanical Ventilator 60 04/04/20 19:30 67 18 119/75 (90) 93 04/04/20 19:00 71 18 60 04/04/20 17:59 98 23 157/89 (111) 91 04/04/20 17:00 99.3 88 18 146/80 (102) 90 04/04/20 16:23 60 04/04/20 16:00 70 04/04/20 16:00 Mechanical Ventilator 04/04/20 16:00 83 04/04/20 16:00 90 20 151/80 (103) 93 04/04/20 15:25 82 18 70 04/04/20 15:00 20 156/87 04/04/20 15:00 72 18 153/85 (107) 93 04/04/20 14:45 73 14 132/71 (91) 95 04/04/20 14:30 76 16 138/74 (95) 96 04/04/20 14:15 70 18 131/75 (93) 95 04/04/20 14:00 70 20 133/74 (93) 95 04/04/20 14:00 20 133/74 Mechanical Ventilator 70 04/04/20 13:45 70 18 142/70 (94) 94 04/04/20 13:45 18 142/70 Mechanical Ventilator 70 04/04/20 13:10 82 18 70 04/04/20 13:00 70 18 151/80 (103) 95 04/04/20 13:00 18 151/80 Mechanical Ventilator 70 04/04/20 12:15 67 18 146/78 (100) 94 04/04/20 12:00 Mechanical Ventilator 04/04/20 12:00 97.0 64 18 140/76 (97) 94 04/04/20 12:00 71 04/04/20 12:00 70 04/04/20 12:00 18 140/76 Mechanical Ventilator 70 04/04/20 11:45 68 18 137/86 (103) 94 04/04/20 11:30 65 18 131/58 (82) 93 04/04/20 11:15 69 18 146/79 (101) 95 04/04/20 11:00 65 18 138/80 (99) 95 04/04/20 11:00 70 18 70 04/04/20 11:00 18 138/80 Mechanical Ventilator 70 Intake and Output 04/04/20 04/05/20 19:00 07:00 Intake Total 593.22 ml 624.00 ml Output Total 410 ml 780 ml Balance 183.22 ml -156.00 ml IV Total 443.22 ml 274.00 ml Tube Feeding 150 ml 350 ml Output Urine Total 410 ml 680 ml Stool Total 100 ml Laboratory Tests 04/04/20 11:06: Arterial Blood pH 7.466H, Arterial Blood Partial Pressure CO2 41.6, Arterial Blood Partial Pressure O2 76.7, Arterial Blood HCO3 29.3H, Arterial Blood Oxygen Saturation 95.7, Arterial Blood Base Excess 5.1H, Shemar Test Positive 04/04/20 12:20: POC Whole Blood Glucose 158H 04/05/20 04:00: White Blood Count 11.1#H, Red Blood Count 4.20L, Hemoglobin 11.8L, Hematocrit 37.7L, Mean Corpuscular Volume 90, Mean Corpuscular Hemoglobin 28.2, Mean Corpuscular Hemoglobin Concent 31.4L, Red Cell Distribution Width 15.8H, Pl atelet Count 266, Mean Platelet Volume 6.5, Neutrophils (%) (Auto) , Lymphocytes (%) (Auto) , Monocytes (%) (Auto) , Eosinophils (%) (Auto) , Basophils (%) (Auto) , Differential Total Cells Counted 100, Neutrophils % (Manual) 93H, Lymphocytes % (Manual) 3L, Monocytes % (Manual) 4, Eosinophils % (Manual) 0, Basophils % (Manual) 0, Band Neutrophils 0, Platelet Estimate Adequate, Platelet Morphology Normal, Hypochromasia 1+, Anisocytosis 1+, Sodium Level 150H, Potassium Level 4.0, Chloride Level 112H, Carbon Dioxide Level 33H, Anion Gap 5, Blood Urea Nitrogen 40H, Creatinine 0.6, Estimat Glomerular Filtration Rate > 60, Glucose Level 159H, Calcium Level 8.8, Phosphorus Level 3.1, Magnesium Level 2.6H, Total Bilirubin 1.2H, Direct Bilirubin 0.7H, Aspartate Amino Transf (AST/SGOT) 125H, Alanine Aminotransferase (ALT/SGPT) 329H, Alkaline Phosphatase 165H, C-Reactive Protein, Quantitative < 0.4, Pro-B-Type Natriuretic Peptide 536H, Total Protein 5.9L, Albumin 2.5L, Globulin 3.4, Albumin/Globulin Ratio 0.7L Height (Feet): 5 Height (Inches): 10.00 Weight (Pounds): 240 General Appearance: no apparent distress EENT: normal ENT inspection Neck: supple Cardiovascular: normal rate Respiratory/Chest: decreased breath sounds Abdomen: normal bowel sounds, non tender, soft Extremities: non-tender Assessment/Plan Status: stable, progressing Assessment/Plan: hep c + but neg RNA intubated OGTF reglan 10 mg repeat labs fu LFTS will fu Da Quintero MD Apr 05, 2020 10:54
--- NOTE | 2020-04-05 10:57 | NUR ---
NURSE NOTES: Dr. Quintero updated that the feeding has been held thorough the morning shift at 0400 due to residuals of 100 for consecutive hours. feeding restarted at 0900 after residuals dropped to 35mls, feeding started at 40ml/hr and notified dr. quintero, also ordered to have the lactulose doses to be discontinued.
[2020-04-05] MEDS: fentaNYL 2500mcg/NS 250ml 250 ML IV SCH (12:00)
--- NOTE | 2020-04-05 12:30 | NUR ---
NURSE NOTES: BS resulted at 161 with 2 units of Novolog given. remains on Fentanyl drip at 200mcg/hr at rate of 20ml/hr at rass of -1. remains on bilateral wrist restraints to prevent from reaching towards ET-tubes and OG-tube.
--- NOTE | 2020-04-05 12:55 | NUR ---
INSURANCE CLINCALS/REVIEW FAXED TO [employer] T: [phone] #1 F: [phone] [facility] RECEPTIONIST:JACQUELINE JAMES [phone] F: [phone]
--- NOTE | 2020-04-05 13:16 | Nephrology Progress Note ---
Assessment/Plan Problem List: (1) Dehydration (2) Electrolyte imbalance (3) COVID-19 virus infection (4) Pneumonia (5) DMII (diabetes mellitus, type 2) (6) Protein malnutrition Assessment Azotemia, hypernatremia Hypoalbuminemia Staff Otilia bacteremia COVID-19 isolation, pneumonia, bilateral infiltrate Hypertension Diabetes mellitus History of smoking Plan April 05: Status quo. Remains full code. Remains intubated. Labs reviewed. Renal parameters stable. Serum sodium 150 unchanged. Continue per consultants. April 04: Remains intubated and on ventilator. Remains full code. Labs reviewed. Serum sodium 150 unchanged. Renal parameters stable. Continue per ID and pulmonary. April 03: Intubated. On ventilator. Full code. Labs reviewed. Serum sodium 150 unchanged. Continue to monitor renal parameters. Continue per pulmonary and ID. April 02: Full code. On ventilator. Discussed with RN. Serum sodium slightly higher. Will cut down on IV Lasix. Continue per consultants. Continue to monitor renal parameters and electrolytes. April 01: Full code. Remains on ventilator. Labs reviewed. Stable from renal standpoint of view. Continue per consultants. March 31: Full code . Remains intubated on ventilator. Labs reviewed. Patient appears toxic. Discussed with RN. Maintenance IV discontinued. Medication list reviewed. Blood pressure medication stopped due to low blood pressure. Levemir insulin stopped. Continue monitor blood sugar and sliding scale insulin. March 30: Full code. On ventilator. Labs reviewed. Clonidine patch dose i ncreased. Lasix increased. 3% saline 1 time ordered. Continue to monitor electrolytes and renal parameters. March 29: Remains full code. On mechanical ventilation. On tube feeding. Will DC TPN. Will start on maintenance IV fluid. Continue to monitor renal parameters. March 28: On BiPAP. Full code. On TPN. Labs reviewed. Discussed with pharmacy. Continue as is. Watch serum potassium. March 27: Remains on BiPAP. No chemistry panel done today. Full code. On TPN. Will check lab tomorrow. March 26: Remains on BiPAP. Remains on TPN. Labs reviewed. Electrolytes and chemistries within normal limits. Continue as is. March 25: Remains on TPN. Labs reviewed. Discussed with pharmacy. Change IV Protonix to p.o. Continue 3% saline infusion with Lasix. Patient full code. March 24: Continue to be on TPN. Labs are reviewed. Aim to collect electrolytes. Discussed with pharmacy. Continue current consultants. March 23: Continues to be on TPN. Labs reviewed. Electrolytes and chemistr ies all acceptable. Discussed with pharmacy. Continue current management. March 22: On TPN. Labs reviewed. Low sodium noted. 3% saline to be continued. Continue to monitor electrolytes. Discussed with pharmacy. March 21: On TPN. Labs reviewed. Continue 3% saline and Lasix for mild hyponatremia. Continue TPN as these. Discussed with pharmacy. March 20: Remains on TPN. Labs reviewed. Serum sodium higher on IV Lasix and 3% saline infusion. Continue TPN as is. Continue to monitor renal parameters and electrolytes. Discussed with Dr. Mata March 19: Remains on TPN. Labs reviewed. Serum sodium 128. Will give 3% saline with IV Lasix. Continue to monitor electrolytes. No change in TPN composition. Discussed with pharmacy. March 18: Remains on TPN. Labs reviewed. Discussed with pharmacist. Will give 3 doses of IV Lasix 20 mg every 8 hours. Continue to monitor serum sodium electrolytes uric acid. White blood cells down. Continue per consultants. March 17: On TPN. Labs reviewed. Discussed with pharmacist. Sodium content increase. Continue to monitor CMP. Patient continues to have leukocytosis. March 16: On TPN. Labs reviewed. Discussed with pharmacist. Appropriate changes made. Continue to monitor electrolytes. March 15: Remains on TPN. Labs reviewed. Discussed with pharmacist. Continue per current management. March 14: Remains on TPN. Labs reviewed, stable. Vitamin D level low, replacement ordered. Continue to monitor electrolytes and renal parameters. March 13: Patient remains on TPN. Discussed with pharmacist. TPN's sodium content adjusted. Labs reviewed. Continue to monitor electrolytes. Blood pressure remains stable. Continue per consultants. March 12: Patient on TPN. Labs reviewed. CPK remains elevated. Abnormal electrolytes and high blood sugar discussed with pharmacist and TPN adjusted. Continue to monitor labs. Oral Protonix added. Ibuprofen discontinued. Can continue to monitor electrolytes and chemistries. Levemir for high blood sugar added. March 11: Patient on TPN. Labs as of 11:15 AM is still pending. Continue per current treatment plan. Will check labs and adjust TPN as needed. Continue per consultants. March 10: Patient on TPN. Labs reviewed. Electrolytes overall stable. CPK is elevated. Will monitor electrolyte, CPK level, lipid panel. Continue per consultants. Discussed with pharmacist. Discussed with RN. Nutritional evaluation noted. Previously: D5W 100 cc an hour Monitor electrolytes renal parameters TPN and Intralipid ordered Will follow Continue per consultants Dietary consult requested Subjective ROS Limited/Unobtainable: Yes Objective Objective Last 24 Hour Vital Signs Date Time Temp Pulse Resp B/P (MAP) Pulse Ox O2 Delivery O2 Flow Rate FiO2 04/05/20 12:00 20 152/102 Mechanical Ventilator 70 04/05/20 11:00 16 153/93 Mechanical Ventilator 70 04/05/20 11:00 93 16 153/93 (113) 90 04/05/20 10:30 92 19 163/118 (133) 93 04/05/20 10:00 23 165/121 Mechanical Ventilator 70 04/05/20 10:00 87 23 165/121 (136) 94 04/05/20 09:30 86 19 167/97 (120) 93 04/05/20 09:00 78 22 158/87 (110) 92 04/05/20 08:30 83 21 151/77 (101) 93 04/05/20 08:04 80 22 165/104 (124) 95 04/05/20 08:00 71 04/05/20 08:00 Mechanical Ventilator 04/05/20 08:00 99.0 74 23 214/96 (135) 94 04/05/20 08:00 70 04/05/20 07:30 72 22 152/90 (110) 91 04/05/20 07:06 81 21 70 04/05/20 07:00 79 21 145/81 (102) 92 04/05/20 06:30 83 23 157/86 (109) 91 04/05/20 06:00 107 23 135/60 (85) 93 04/05/20 05:30 107 23 160/89 (112) 93 04/05/20 05:00 121 24 154/88 (110) 94 04/05/20 04:30 118 22 158/95 (116) 94 04/05/20 04:00 60 04/05/20 04:00 99.0 109 20 159/95 (116) 94 04/05/20 04:00 Mechanical Ventilator 04/05/20 04:00 21 150/50 Mechanical Ventilator 70 04/05/20 04:00 112 04/05/20 03:30 90 20 141/86 (104) 95 04/05/20 03:27 20 141/86 Mechanical Ventilator 70 04/05/20 03:15 70 04/05/20 03:14 97 20 60 04/05/20 03:00 96 18 145/93 (110) 92 04/05/20 02:30 96 19 139/83 (101) 92 04/05/20 02:27 19 139/83 Mechanical Ventilator 70 04/05/20 02:00 91 21 152/104 (120) 90 04/05/20 01:30 96 19 144/86 (105) 91 04/05/20 01:27 20 139/83 Mechanical Ventilator 60 04/05/20 01:00 88 19 142/80 (100) 91 04/05/20 00:30 75 18 138/83 (101) 93 04/05/20 00:27 20 150/104 Mechanical Ventilator 60 04/05/20 00:00 60 04/05/20 00:00 80 04/05/20 00:00 Mechanical Ventilator 04/05/20 00:00 97.9 99 22 140/85 (103) 90 04/04/20 23:30 106 18 60 04/04/20 23:30 72 18 126/79 (95) 94 04/04/20 23:27 21 128/84 Mechanical Ventilator 15.0 60 04/04/20 23:00 70 18 128/84 (99) 94 04/04/20 22:27 21 148/82 Mechanical Ventilator 60 04/04/20 22:12 19 140/85 Mechanical Ventilator 60 04/04/20 22:00 63 18 110/70 (83) 94 04/04/20 21:57 20 110/70 Mechanical Ventilator 60 04/04/20 21:42 18 116/74 Mechanical Ventilator 60 04/04/20 21:30 64 18 107/62 (77) 94 04/04/20 21:27 21 107/62 Mechanical Ventilator 60 04/04/20 21:12 21 110/60 Mechanical Ventilator 60 04/04/20 21:00 55 18 116/74 (88) 94 04/04/20 20:57 20 114/71 Mechanical Ventilator 60 04/04/20 20:42 18 125/71 Mechanical Ventilator 60 04/04/20 20:30 57 18 120/70 (87) 94 04/04/20 20:27 21 139/60 Mechanical Ventilator 60 04/04/20 20:00 60 04/04/20 20:00 98.9 62 18 125/71 (89) 93 04/04/20 20:00 83 04/04/20 20:00 Mechanical Ventilator 04/04/20 19:50 21 139/60 Mechanical Ventilator 60 04/04/20 19:30 67 18 119/75 (90) 93 04/04/20 19:00 71 18 60 04/04/20 17:59 98 23 157/89 (111) 91 04/04/20 17:00 99.3 88 18 146/80 (102) 90 04/04/20 16:23 60 04/04/20 16:00 70 04/04/20 16:00 Mechanical Ventilator 04/04/20 16:00 83 04/04/20 16:00 90 20 151/80 (103) 93 04/04/20 15:25 82 18 70 04/04/20 15:00 20 156/87 04/04/20 15:00 72 18 153/85 (107) 93 04/04/20 14:45 73 14 132/71 (91) 95 04/04/20 14:30 76 16 138/74 (95) 96 04/04/20 14:15 70 18 131/75 (93) 95 04/04/20 14:00 70 20 133/74 (93) 95 04/04/20 14:00 20 133/74 Mechanical Ventilator 70 04/04/20 13:45 70 18 142/70 (94) 94 04/04/20 13:45 18 142/70 Mechanical Ventilator 70 Intake and Output 04/04/20 04/05/20 19:00 07:00 Intake Total 593.22 ml 624.00 ml Output Total 410 ml 780 ml Balance 183.22 ml -156.00 ml IV Total 443.22 ml 274.00 ml Tube Feeding 150 ml 350 ml Output Urine Total 410 ml 680 ml Stool Total 100 ml Current Medications Medications (Trade) Dose Ordered Sig/Dennis Route PRN Reason Start Time Stop Time Status Last Admin Dose Admin Acetaminophen (Tylenol) 650 mg Q4H PRN ORAL Mild Pain (Pain Scale 1-3) 03/09/20 12:00 04/08/20 11:59 04/04/20 01:16 Bisacodyl (Dulcolax) 10 mg Q12H PRN RECTAL Constipation 03/18/20 16:45 06/16/20 16:44 Chlorhexidine Gluconate (Marlen-Hex 2%) 1 applic DAILY@2000 TOPIC 03/30/20 20:00 06/28/20 19:59 04/04/20 19:39 Dextrose (Dextrose 50%) 25 ml Q30M PRN IV Hypoglycemia 03/29/20 20:45 06/27/20 20:44 Dextrose (Dextrose 50%) 50 ml Q30M PRN IV Hypoglycemia 03/29/20 20:45 06/27/20 20:44 Enoxaparin Sodium (Lovenox) 40 mg DAILY SUBQ 03/13/20 12:00 06/11/20 11:59 04/05/20 09:35 Fentanyl Citrate 250 ml @ 1 mls/hr Q24H IV 04/04/20 20:00 04/09/20 19:59 04/05/20 12:00 Furosemide (Lasix) 20 mg DAILY IV 04/03/20 09:00 04/18/20 13:59 04/05/20 09:34 Hydralazine HCl (Apresoline) 10 mg Q4H PRN IV For High Blood Pressure 03/30/20 12:15 06/28/20 12:14 04/03/20 21:00 Insulin Aspart (NovoLOG) Q6HR SUBQ 03/30/20 00:00 06/28/20 00:00 04/05/20 12:29 Labetalol HCl (Normodyne) 10 mg Q4H PRN IV sbp greater tahtn 160 03/28/20 17:30 04/27/20 17:29 Meropenem 1 gm/ Sodium Chloride 100 ml @ 200 mls/hr Q8HR IVPB 04/02/20 22:00 04/07/20 21:59 04/05/20 06:16 Methylprednisolone Sodium Succinate (Solu-MEDROL) 40 mg EVERY 8 HOURS IVP 03/22/20 14:00 06/20/20 13:59 04/05/20 06:16 Metoclopramide HCl (Reglan) 10 mg Q6H IVP 03/30/20 15:00 04/29/20 14:59 04/05/20 09:33 Micafungin Sodium 100 mg/Sodium Chloride 100 ml @ 100 mls/hr Q24H IVPB 03/29/20 15:00 04/11/20 23:59 04/04/20 15:00 Pantoprazole (Protonix) 40 mg EVERY 12 HOURS IVP 04/01/20 21:00 05/01/20 20:59 04/05/20 09:34 Polyethylene Glycol (Miralax) 17 gm BEDTIME ORAL 03/08/20 21:00 04/07/20 20:59 04/03/20 21:07 Trimethoprim/ Sulfamethoxazole (Bactrim-DS) 1 tab Q24H ORAL 03/29/20 17:00 04/11/20 16:59 04/04/20 16:00 Vitamin D (Vitamin D) 5,000 unit DAILY ORAL 03/15/20 09:00 04/14/20 08:59 04/05/20 09:34 Laboratory Tests 04/05/20 04:00: White Blood Count 11.1#H, Red Blood Count 4.20L, Hemoglobin 11.8L, Hematocrit 37.7L, Mean Corpuscular Volume 90, Mean Corpuscular Hemoglobin 28.2, Mean Corpuscular Hemoglobin Concent 31.4L, Red Cell Distribution Width 15.8H, Platelet Count 266, Mean Platelet Volume 6.5, Neutrophils (%) (Auto) , Lymphocytes (%) (Auto) , Monocytes (%) (Auto) , Eosinophils (%) (Auto) , Basoph ils (%) (Auto) , Differential Total Cells Counted 100, Neutrophils % (Manual) 93H, Lymphocytes % (Manual) 3L, Monocytes % (Manual) 4, Eosinophils % (Manual) 0, Basophils % (Manual) 0, Band Neutrophils 0, Platelet Estimate Adequate, Platelet Morphology Normal, Hypochromasia 1+, Anisocytosis 1+, Sodium Level 150H , Potassium Level 4.0, Chloride Level 112H, Carbon Dioxide Level 33H, Anion Gap 5, Blood Urea Nitrogen 40H, Creatinine 0.6, Estimat Glomerular Filtration Rate > 60, Glucose Level 159H, Calcium Level 8.8, Phosphorus Level 3.1, Magnesium Level 2.6H, Total Bilirubin 1.2H, Direct Bilirubin 0.7H, Aspartate Amino Transf (AST/SGOT) 125H, Alanine Aminotransferase (ALT/SGPT) 329H, Alkaline Phosphatase 165H, C-Reactive Protein, Quantitative < 0.4, Pro-B-Type Natriuretic Peptide 536H, Total Protein 5.9L, Albumin 2.5L, Globulin 3.4, Albumin/Globulin Ratio 0.7L Height (Feet): 5 Height (Inches): 10.00 Weight (Pounds): 240 General Appearance: no apparent distress EENT: other - Intubated on ventilator Cardiovascular: tachycardia Respiratory/Chest: decreased breath sounds Abdomen: distended Rubin Cooper MD Apr 05, 2020 13:16
--- NOTE | 2020-04-05 14:11 | NUR ---
NURSE NOTES: patient resting comfortably with fentanyl at rate of 200mcg/hr, he is sedated at rass scale of -2 with patient able to open eyes for less that 3 seconds. heart rate is 74-76, Saturating at 92-93% with RR of 18 and BP of 148/94. tube feeding remains at 40ml/hr running through OG-tube.
[2020-04-05] MEDS: Bactrim-DS 1 tab ORAL SCH (17:12)
--- NOTE | 2020-04-05 19:38 | Cardiology Progress Note ---
Assessment/Plan Assessment/Plan Acute covid 19 pneumonia hypoxemia infiltrate bilat bacteremia hypernatremia / hyponatremia mild abn lfts tachy post intubation fever fungemia hr is normal sedated agian bp seems elelvated is on iv hydralazine and labetolol resume tts patch hypoxemia unlikely cardiac related on dvt ppx dose tube feeding echo reviewed last on 03/28 still shows normal lv function no valve pathology no new cxr wbc elevated bu t so is th hgb i wonder if the lab is accurate to repeat in am tele reviewed sinus remains critical back on 70% d/w rn diuretic per dr parekh in he setting of hypernatremia not much pulm secretion per rn on cooling blanket covid pcr negative , however considering that it took 3 tests to finally initially identify his covid infection i am not sure if we can trust Subjective ROS Limited/Unobtainable: Yes Subjective pt in covid 19 isolation intubated , responsive not communicative n the vent Objective Last 24 Hour Vital Signs Date Time Temp Pulse Resp B/P (MAP) Pulse Ox O2 Delivery O2 Flow Rate FiO2 04/05/20 19:12 89 20 70 04/05/20 17:30 112 19 151/98 (115) 92 04/05/20 17:00 111 20 151/93 (112) 91 04/05/20 16:30 116 19 166/103 (124) 91 04/05/20 16:16 118 21 152/94 (113) 91 04/05/20 16:00 Mechanical Ventilator 04/05/20 16:00 70 04/05/20 16:00 98.7 130 22 174/104 (127) 92 04/05/20 16:00 124 04/05/20 15:30 115 20 150/87 (108) 92 04/05/20 15:17 85 22 70 04/05/20 15:00 91 20 136/94 (108) 93 04/05/20 14:30 80 18 120/78 (92) 95 04/05/20 14:00 22 148/94 Mechanical Ventilator 70 04/05/20 14:00 79 22 148/94 (112) 94 04/05/20 13:30 87 23 148/98 (115) 92 04/05/20 13:00 25 143/90 Mechanical Ventilator 70 04/05/20 13:00 104 25 143/90 (107) 90 04/05/20 12:30 99 26 146/92 (110) 93 04/05/20 12:00 70 04/05/20 12:00 98.0 95 18 156/101 (119) 92 04/05/20 12:00 20 152/102 Mechanical Ventilator 70 04/05/20 12:00 Mechanical Ventilator 04/05/20 12:00 95 04/05/20 11:30 97 18 152/102 (119) 91 04/05/20 11:03 81 21 70 04/05/20 11:00 16 153/93 Mechanical Ventilator 70 04/05/20 11:00 93 16 153/93 (113) 90 04/05/20 10:30 92 19 163/118 (133) 93 04/05/20 10:00 23 165/121 Mechanical Ventilator 70 04/05/20 10:00 87 23 165/121 (136) 94 04/05/20 09:30 86 19 167/97 (120) 93 04/05/20 09:00 78 22 158/87 (110) 92 04/05/20 08:30 83 21 151/77 (101) 93 04/05/20 08:04 80 22 165/104 (124) 95 04/05/20 08:00 71 04/05/20 08:00 Mechanical Ventilator 04/05/20 08:00 99.0 74 23 214/96 (135) 94 04/05/20 08:00 70 04/05/20 07:30 72 22 152/90 (110) 91 04/05/20 07:06 81 21 70 04/05/20 07:00 79 21 145/81 (102) 92 04/05/20 06:30 83 23 157/86 (109) 91 04/05/20 06:00 107 23 135/60 (85) 93 04/05/20 05:30 107 23 160/89 (112) 93 04/05/20 05:00 121 24 154/88 (110) 94 04/05/20 04:30 118 22 158/95 (116) 94 04/05/20 04:00 60 04/05/20 04:00 99.0 109 20 159/95 (116) 94 04/05/20 04:00 Mechanical Ventilator 04/05/20 04:00 21 150/50 Mechanical Ventilator 70 04/05/20 04:00 112 04/05/20 03:30 90 20 141/86 (104) 95 04/05/20 03:27 20 141/86 Mechanical Ventilator 70 04/05/20 03:15 70 04/05/20 03:14 97 20 60 04/05/20 03:00 96 18 145/93 (110) 92 04/05/20 02:30 96 19 139/83 (101) 92 04/05/20 02:27 19 139/83 Mechanical Ventilator 70 04/05/20 02:00 91 21 152/104 (120) 90 04/05/20 01:30 96 19 144/86 (105) 91 04/05/20 01:27 20 139/83 Mechanical Ventilator 60 04/05/20 01:00 88 19 142/80 (100) 91 04/05/20 00:30 75 18 138/83 (101) 93 04/05/20 00:27 20 150/104 Mechanical Ventilator 60 04/05/20 00:00 60 04/05/20 00:00 80 04/05/20 00:00 Mechanical Ventilator 04/05/20 00:00 97.9 99 22 140/85 (103) 90 04/04/20 23:30 106 18 60 04/04/20 23:30 72 18 126/79 (95) 94 04/04/20 23:27 21 128/84 Mechanical Ventilator 15.0 60 04/04/20 23:00 70 18 128/84 (99) 94 04/04/20 22:27 21 148/82 Mechanical Ventilator 60 04/04/20 22:12 19 140/85 Mechanical Ventilator 60 04/04/20 22:00 63 18 110/70 (83) 94 04/04/20 21:57 20 110/70 Mechanical Ventilator 60 04/04/20 21:42 18 116/74 Mechanical Ventilator 60 04/04/20 21:30 64 18 107/62 (77) 94 04/04/20 21:27 21 107/62 Mechanical Ventilator 60 04/04/20 21:12 21 110/60 Mechanical Ventilator 60 04/04/20 21:00 55 18 116/74 (88) 94 04/04/20 20:57 20 114/71 Mechanical Ventilator 60 04/04/20 20:42 18 125/71 Mechanical Ventilator 60 04/04/20 20:30 57 18 120/70 (87) 94 04/04/20 20:27 21 139/60 Mechanical Ventilator 60 04/04/20 20:00 60 04/04/20 20:00 98.9 62 18 125/71 (89) 93 04/04/20 20:00 83 04/04/20 20:00 Mechanical Ventilator 04/04/20 19:50 21 139/60 Mechanical Ventilator 60 General Appearance: no apparent distress, on vent, patient on isolation, isolation precautions Extremities: no swelling Intake and Output 04/04/20 04/05/20 19:00 07:00 Intake Total 593.22 ml 624.00 ml Output Total 410 ml 780 ml Balance 183.22 ml -156.00 ml IV Total 443.22 ml 274.00 ml Tube Feeding 150 ml 350 ml Output Urine Total 410 ml 680 ml Stool Total 100 ml Laboratory Tests Test 04/05/20 04:00 White Blood Count 11.1 K/UL (4.8-10.8) #H Red Blood Count 4.20 M/UL (4.70-6.10) L Hemoglobin 11.8 G/DL (14.2-18.0) L Hematocrit 37.7 % (42.0-52.0) L Mean Corpuscular Volume 90 FL (80-99) Mean Corpuscular Hemoglobin 28.2 PG (27.0-31.0) Mean Corpuscular Hemoglobin Concent 31.4 G/DL (32.0-36.0) L Red Cell Distribution Width 15.8 % (11.6-14.8) H Platelet Count 266 K/UL (150-450) Mean Platelet Volume 6.5 FL (6.5-10.1) Neutrophils (%) (Auto) % (45.0-75.0) Lymphocytes (%) (Auto) % (20.0-45.0) Monocytes (%) (Auto) % (1.0-10.0) Eosinophils (%) (Auto) % (0.0-3.0) Basophils (%) (Auto) % (0.0-2.0) Differential Total Cells Counted 100 Neutrophils % (Manual) 93 % (45-75) H Lymphocytes % (Manual) 3 % (20-45) L Monocytes % (Manual) 4 % (1-10) Eosinophils % (Manual) 0 % (0-3) Basophils % (Manual) 0 % (0-2) Band Neutrophils 0 % (0-8) Platelet Estimate Adequate Platelet Morphology Normal Hypochromasia 1+ Anisocytosis 1+ Sodium Level 150 MMOL/L (136-145) H Potassium Level 4.0 MMOL/L (3.5-5.1) Chloride Level 112 MMOL/L (98-107) H Carbon Dioxide Level 33 MMOL/L (21-32) H Anion Gap 5 mmol/L (5-15) Blood Urea Nitrogen 40 mg/dL (7-18) H Creatinine 0.6 MG/DL (0.55-1.30) Estimat Glomerular Filtration Rate > 60 mL/min (>60) Glucose Level 159 MG/DL (74-106) H Calcium Level 8.8 MG/DL (8.5-10.1) Phosphorus Level 3.1 MG/DL (2.5-4.9) Magnesium Level 2.6 MG/DL (1.8-2.4) H Total Bilirubin 1.2 MG/DL (0.2-1.0) H Direct Bilirubin 0.7 MG/DL (0.0-0.3) H Aspartate Amino Transf (AST/SGOT) 125 U/L (15-37) H Alanine Aminotransferase (ALT/SGPT) 329 U/L (12-78) H Alkaline Phosphatase 165 U/L (46-116) H C-Reactive Protein, Quantitative < 0.4 mg/dL (0.00-0.90) Pro-B-Type Natriuretic Peptide 536 pg/mL (0-125) H Total Protein 5.9 G/DL (6.4-8.2) L Albumin 2.5 G/DL (3.4-5.0) L Globulin 3.4 g/dL Albumin/Globulin Ratio 0.7 (1.0-2.7) L Objective pt in covid 19 isoaltion with acute infection Manan Awan MD Apr 05, 2020 19:38
--- NOTE | 2020-04-05 19:44 | NUR ---
NURSE HAND-OFF REPORT: Latest Vital Signs: Temperature 98.7 , Pulse 94 , B/P 149 /100 , Respiratory Rate 21 , O2 SAT 91 , Mechanical Ventilator, O2 Flow Rate . Vital Sign Comment: EKG Rhythm: Sinus Rhythm Rhythm change?: N Notified?: Courtney Paige MD Response: Message left await call Latest Hassan Fall Score: 35 Fall Risk: Medium Risk Safety Measures: Call light Within Reach, Bed Alarm Zone 1, Side Rails Side Rails x3, Bed position Low and Locked. Fall Precautions: Yellow Socks Yellow Gown Door Sign Patient Fall Education Report given to PRIYANKA ordaz.
[2020-04-05] MEDS: Miralax 17gm pkt ORAL SCH (20:05)
[2020-04-05] MEDS: Dyna-Hex 2% Top Sol 2oz TOPIC SCH (20:05)
--- NOTE | 2020-04-05 21:40 | NUR ---
Spoke with Dr. Mata to ask if restraint order can be discontinued as patient is alert and follows commands on ventilator. He watches TV and uses call light appropriately. Trialed patient off of restraints successfully. Per Dr. Mata, patient needs to be completely sedated due to FiO2 demands. Notified provider that patient was on versed prior but that it dropped his heart rate causing bradycardia. Physician gave verbal order for propofol. Re-stated order to provider to ensure he in faqct wanted patient completely sedated. Provider stated that is correct as he wants the FiO2 to decrease on this patient and does not want him awake. Propofol ordered via verbal/telephone order and will administer to patient. Notified metal hangerJackelyn on this as well.
[2020-04-05] MEDS: propofoL 1,000mg/100ml 100 ML IV PRN (22:28)
[2020-04-06] VITALS (46 sets, daily range): BP systolic 73–166; BP diastolic 54–99
--- NOTE | 2020-04-06 | NUR ---
ED RN called to bedside to place PIV after 2 RN attempt for PIV placement. Propofol started on patient earlier in shift and required additional access. Patient stable, wakes to name, and continues to follow commands/cooperative. Will continue to monitor. RT will attempt to wean FiO2
[2020-04-06] MEDS: NovoLOG Insulin Flexpen SUBQ SCH ×4 (00:28→19:37)
[2020-04-06] MEDS: fentaNYL 2500mcg/NS 250ml 250 ML IV SCH ×3 (00:48→23:11)
--- NOTE | 2020-04-06 02:00 | NUR ---
BUFFING WHE[employer] FORMER MACHINE able to wean patient to 65% FiO2. VSS, continues to follow commands. LUE restrain removed as patient cannot move the arm. Right wrist restraint remains in place, although this RN does not believe patient needs restraint. Will reiterate to Day shift RN.
[2020-04-06] MEDS: Metoclopramide 10mg/2ml Inj IVP SCH ×4 (03:12→21:00)
--- NOTE | 2020-04-06 04:00 | NUR ---
Patient weaned to 60% FiO2. Continuing to monitor. VSS. No changes.
--- NOTE | 2020-04-06 05:00 | NUR ---
Multiple staff members assisted placing patient on overlay mattress. bathed patient and changed linen. Due to overworking patient had to increase FiO2 to 65%. Will continue to monitor.
[2020-04-06 05:09] LABS: HEMATOCRIT 38.7 % (42.0-52.0); MEAN CORPUSCULAR VOLUME 90 FL (80-99); PLATELET COUNT 222 K/UL (150-450); RED CELL DISTRIBUTION WIDTH 16.1 % (11.6-14.8); WHITE BLOOD COUNT 9.6 K/UL (4.8-10.8)
[2020-04-06 05:43] LABS: ALANINE AMINOTRANSFERASE 329 U/L (12-78); ALBUMIN 2.3 G/DL (3.4-5.0); ALBUMIN/GLOBULIN RATIO 0.7 (1.0-2.7); ALKALINE PHOSPHATASE 171 U/L (46-116); ANION GAP 4 mmol/L (5-15); ASPARTATE AMINO TRANSFERASE 78 U/L (15-37); BLOOD UREA NITROGEN 36 mg/dL (7-18); CALCIUM 8.7 MG/DL (8.5-10.1); CARBON DIOXIDE 35 MMOL/L (21-32); CHLORIDE 113 MMOL/L (98-107); CREATININE 0.5 MG/DL (0.55-1.30); POTASSIUM 4.2 MMOL/L (3.5-5.1); SODIUM 152 MMOL/L (136-145); TRIGLYCERIDES 358 MG/DL (30-150)
[2020-04-06] MEDS: propofoL 1,000mg/100ml 100 ML IV PRN ×3 (05:53→20:30)
[2020-04-06] MEDS: Solu-MEDROL 40mg Inj IVP SCH ×3 (05:53→21:51)
--- NOTE | 2020-04-06 06:30 | NUR ---
Patient slightly bradycardic to high 50's. Asymptomatic. Changed alarm in patient room to 55 as a low setting/alarm setting. Patient wakes to voice, follows commands, and has no complaints when asked. VSS, will continue to monitor.
--- NOTE | 2020-04-06 07:12 | NUR ---
Report given to PRIYANKA Brown. Handed over care of patient.
--- NOTE | 2020-04-06 07:22 | NUR ---
RD ASSESSMENT & RECOMMENDATIONS SEE CARE ACTIVITY FOR COMPLETE ASSESSMENT DAILY ESTIMATED NEEDS: Needs based on Critical care, wound 81kg abw 22-28 kcals/kg 0984-4894 total kcals 1.25-1.5 g protein/kg 101-122 g total protein 25-30 mL/kg 8566-3817 total fluid mLs NUTRITION DIAGNOSIS: * Inadequate oral intake R/T clinical and respiratory status as evidenced by COVID-19 ++, on continuous BIPAP, prolonged meal refusals, pt is now on TPN, pt is now orally intubated (03/28), now on OGT feeds. * Decreased sodium and fat needs r/t HTN and obesity as evidenced by pt w/ cardiac history, elev BP (159/98-> now improved, on BP meds and diuretics), BMI >30, obese per guidelines. (INACTIVE) CURRENT TF: NOW ORDERED-> Glucerna 1.5 goal of 50 + Prosource BID ENTERAL NUTRITION RECOMMENDATIONS: Glucerna 1.5 @ 50ml/hr x 24 hrs + Prosource 1pkt BID to provide 1200ml, 1800kcal, 99g prot, 926ml free water * Maintain current TF @ goal as tolerated * Con't Prosource 1pkt BID (additional 22g prot) to better meet est prot needs. ------ WITH CURRENT PROPOFOL RATE OF 13.063ML/DAY-> rec to lower TF to goal of Glucerna 1.5 goal of 40ml/hr to provide 960ml, 1440 kcal, 79g + 22g pro, 729ml free H2O/day. ADDITIONAL RECOMMENDATIONS: 1) Maintain calibrated bedscale wts 2) Obtain HgA1C for eval 3) Pt now w/ rectal tube-> pt on Lactulose TID, continue DC Lactulose 4) Off tpn, LFT's trending down. 5) Monitor lytes, replete as needed (Na and BUN up) 6) Monitor BGs- improved, now off Levemir 7) On propofol, rec to lower TF to goal of 40ml/hr x24 hrs
[2020-04-06] MEDS: Pantoprazole Inj IVP SCH ×2 (09:15→20:08)
--- NOTE | 2020-04-06 09:15 | NUR ---
NURSE NOTES: Dr. Cooper informed of the sodium level increased to 152, ordered to have water flushes 150mls to be given q6hrs. also ordered to hold Lasix 20mg iv this morning to flush water.
[2020-04-06] MEDS: Vitamin D 1000 units Tab ORAL SCH (09:16)
[2020-04-06] MEDS: Enoxaparin 40mg Inj SUBQ SCH (09:16)
--- NOTE | 2020-04-06 09:40 | Nephrology Progress Note ---
Assessment/Plan Problem List: (1) Dehydration (2) Electrolyte imbalance (3) COVID-19 virus infection (4) Pneumonia (5) DMII (diabetes mellitus, type 2) (6) Protein malnutrition Assessment Azotemia, hypernatremia Hypoalbuminemia Staff Otilia bacteremia COVID-19 isolation, pneumonia, bilateral infiltrate Hypertension Diabetes mellitus History of smoking Plan April 06: Full code. On ventilator. Blood pressure 80-90 systolic. IV Lasix discontinued. Free water through tube feeding ordered. Continue to monitor electrolytes and serum sodium. Down on fentanyl as possible. Discussed with RN Kevin. Clonidine patch discontinued. April 05: Status quo. Remains full code. Remains intubated. Labs reviewed. Renal parameters stable. Serum sodium 150 unchanged. Continue per consultants. April 04: Remains intubated and on ventilator. Remains full code. Labs reviewed. Serum sodium 150 unchanged. Renal parameters stable. Continue per ID and pulmonary. April 03: Intubated. On ventilator. Full code. Labs reviewed. Serum sodium 150 unchanged. Continue to monitor renal parameters. Continue per pulmonary and ID. April 02: Full code. On ventilator. Discussed with RN. Serum sodium slightly higher. Will cut down on IV Lasix. Continue per consultants. Continue to monitor renal parameters and electrolytes. April 01: Full code. Remains on ventilator. Labs reviewed. Stable from renal standpoint of view. Continue per consultants. March 31: Full code . Remains intubated on ventilator. Labs reviewed. Patient appears toxic. Discussed with RN. Maintenance IV discontinued. Medication list reviewed. Blood pressure medication stopped due to low blood pressure. Levemir insulin stopped. Continue monitor blood sugar and sliding scale insulin. March 30: Full code. On ventilator. Labs reviewed. Clonidine patch dose increased. Lasix increased. 3% saline 1 time ordered. Continue to monitor electrolytes and renal parameters. March 29: Remains full code. On mechanical ventilation. On tube feeding. Will DC TPN. Will start on maintenance IV fluid. Continue to monitor renal parameters. March 28: On BiPAP. Full code. On TPN. Labs reviewed. Discussed with pharmacy. Continue as is. Watch serum potassium. March 27: Remains on BiPAP. No chemistry panel done today. Full code. On TPN. Will check lab tomorrow. March 26: Remains on BiPAP. Remains on TPN. Labs reviewed. Electrolytes and chemistries within normal limits. Continue as is. March 25: Remains on TPN. Labs reviewed. Discussed with pharmacy. Change IV Protonix to p.o. Continue 3% saline infusion with Lasix. Patient full code. March 24: Continue to be on TPN. Labs are reviewed. Aim to collect electrolytes. Discussed with pharmacy. Continue current consultants. March 23: Continues to be on TPN. Labs reviewed. Electrolytes and chemistries all acceptable. Discussed with pharmacy. Continue current management. March 22: On TPN. Labs reviewed. Low sodium noted. 3% saline to be continued. Continue to monitor electrolytes. Discussed with pharmacy. March 21: On TPN. Labs reviewed. Continue 3% saline and Lasix for mild hyponatremia. Continue TPN as these. Discussed with pharmacy. March 20: Remains on TPN. Labs reviewed. Serum sodium higher on IV Lasix and 3% saline infusion. Continue TPN as is. Continue to monitor renal parameters and electrolytes. Discussed with Dr. Mata March 19: Remains on TPN. Labs reviewed. Serum sodium 128. Will give 3% saline with IV Lasix. Continue to monitor electrolytes. No change in TPN composition. Discussed with pharmacy. March 18: Remains on TPN. Labs reviewed. Discussed with pharmacist. Will give 3 doses of IV Lasix 20 mg every 8 hours. Continue to monitor serum sodium electrolytes uric acid. White blood cells down. Continue per consultants. March 17: On TPN. Labs reviewed. Discussed with pharmacist. Sodium content increase. Continue to monitor CMP. Patient continues to have leukocytosis. March 16: On TPN. Labs reviewed. Discussed with pharmacist. Appropriate changes made. Continue to monitor electrolytes. March 15: Remains on TPN. Labs reviewed. Discussed with pharmacist. Continue per current management. March 14: Remains on TPN. Labs reviewed, stable. Vitamin D level low, replacement ordered. Continue to monitor electrolytes and renal parameters. March 13: Patient remains on TPN. Discussed with pharmacist. TPN's sodium content adjusted. Labs reviewed. Continue to monitor electrolytes. Blood pressure remains stable. Continue per consultants. March 12: Patient on TPN. Labs reviewed. CPK remains elevated. Abnormal electrolytes and high blood sugar discussed with pharmacist and TPN adjusted. Continue to monitor labs. Oral Protonix added. Ibuprofen discontinued. Can continue to monitor electrolytes and chemistries. Levemir for high blood sugar added. March 11: Patient on TPN. Labs as of 11:15 AM is still pending. Continue per current treatment plan. Will check labs and adjust TPN as needed. Continue per consultants. March 10: Patient on TPN. Labs reviewed. Electrolytes overall stable. CPK is elevated. Will monitor electrolyte, CPK level, lipid panel. Continue per consultants. Discussed with pharmacist. Discussed with RN. Nutritional evaluation noted. Previously: D5W 100 cc an hour Monitor electrolytes renal parameters TPN and Intralipid ordered Will follow Continue per consultants Dietary consult requested Subjective ROS Limited/Unobtainable: Yes Objective Objective Last 24 Hour Vital Signs Date Time Temp Pulse Resp B/P (MAP) Pulse Ox O2 Delivery O2 Flow Rate FiO2 04/06/20 09:00 62 16 87/62 (70) 94 04/06/20 08:30 96 16 83/59 (67) 96 04/06/20 08:00 96 16 108/72 (84) 94 04/06/20 08:00 61 04/06/20 07:52 65 04/06/20 07:30 94 16 81/60 (67) 94 04/06/20 07:00 94 16 86/65 (72) 92 04/06/20 06:30 96.7 73 17 92 04/06/20 06:15 62 16 92 04/06/20 06:00 66 16 103/70 (81) 91 04/06/20 06:00 16 132/75 Mechanical Ventilator 65 04/06/20 05:53 18 138/99 Mechanical Ventilator 65 04/06/20 05:45 82 24 92 04/06/20 05:30 83 19 138/99 (112) 86 04/06/20 05:15 74 16 94 04/06/20 05:00 17 138/99 Mechanical Ventilator 70 04/06/20 05:00 75 16 94/72 (79) 94 04/06/20 04:45 75 16 93 04/06/20 04:30 78 16 105/70 (82) 93 04/06/20 04:15 78 17 95 04/06/20 04:13 82 04/06/20 04:00 Mechanical Ventilator 04/06/20 04:00 60 04/06/20 04:00 16 105/70 Mechanical Ventilator 60 04/06/20 04:00 98.6 84 15 130/75 (93) 94 04/06/20 03:45 83 16 94 04/06/20 03:30 89 17 117/79 (92) 92 04/06/20 03:20 96 20 60 04/06/20 03:15 88 17 92 04/06/20 03:00 16 117/79 Mechanical Ventilator 60 04/06/20 03:00 94 21 144/88 (106) 92 04/06/20 02:45 95 20 92 04/06/20 02:30 94 13 148/96 (113) 92 04/06/20 02:15 96 17 91 04/06/20 02:00 19 148/96 Mechanical Ventilator 65 04/06/20 02:00 97.8 98 20 151/94 (113) 91 04/06/20 01:45 92 19 92 04/06/20 01:34 95 20 70 04/06/20 01:30 94 19 145/93 (110) 93 04/06/20 01:15 81 16 94 04/06/20 01:00 86 16 162/89 (113) 96 04/06/20 01:00 19 145/93 Mechanical Ventilator 70 04/06/20 00:48 16 93/75 Mechanical Ventilator 65 04/06/20 00:45 72 16 96 04/06/20 00:35 71 17 94/70 (78) 94 04/06/20 00:30 73 16 73/57 (62) 94 04/06/20 00:15 74 16 93 04/06/20 00:00 97.8 74 16 94/64 (74) 94 04/06/20 00:00 65 04/06/20 00:00 Mechanical Ventilator 04/06/20 00:00 16 95/71 Mechanical Ventilator 70 04/05/20 23:45 90 22 93 04/05/20 23:37 82 04/05/20 23:30 77 20 138/91 (107) 97 04/05/20 23:15 76 16 96 04/05/20 23:00 75 15 105/74 (84) 94 04/05/20 23:00 16 138/91 Mechanical Ventilator 70 04/05/20 22:45 95 21 92 04/05/20 22:30 71 16 130/85 (100) 94 04/05/20 22:28 28 159/92 Mechanical Ventilator 70 04/05/20 22:15 78 21 94 04/05/20 22:00 97.8 83 20 150/93 (112) 94 04/05/20 22:00 70 04/05/20 21:45 75 17 94 04/05/20 21:30 76 17 127/87 (100) 94 04/05/20 21:15 92 19 92 04/05/20 21:00 88 24 144/97 (113) 94 04/05/20 20:45 93 04/05/20 20:30 92 18 148/92 (110) 92 04/05/20 20:16 153/118 04/05/20 20:15 85 18 95 04/05/20 20:00 Mechanical Ventilator 04/05/20 20:00 97.9 100 23 153/118 (130) 92 04/05/20 20:00 70 04/05/20 19:45 83 18 94 04/05/20 19:30 94 21 149/100 (116) 91 04/05/20 19:30 94 21 149/100 (116) 91 04/05/20 19:28 96 04/05/20 19:12 89 20 70 04/05/20 19:00 90 18 148/94 (112) 93 04/05/20 19:00 21 148/94 Mechanical Ventilator 70 04/05/20 18:30 91 20 143/100 (114) 92 04/05/20 18:00 111 22 155/94 (114) 89 04/05/20 18:00 20 155/94 Mechanical Ventilator 70 04/05/20 17:30 112 19 151/98 (115) 92 04/05/20 17:00 111 20 151/93 (112) 91 04/05/20 17:00 20 151/98 Mechanical Ventilator 70 04/05/20 16:30 116 19 166/103 (124) 91 04/05/20 16:16 118 21 152/94 (113) 91 04/05/20 16:00 Mechanical Ventilator 04/05/20 16:00 20 152/94 Mechanical Ventilator 70 04/05/20 16:00 70 04/05/20 16:00 98.7 130 22 174/104 (127) 92 04/05/20 16:00 124 04/05/20 15:30 115 20 150/87 (108) 92 04/05/20 15:17 85 22 70 04/05/20 15:00 91 20 136/94 (108) 93 04/05/20 15:00 19 136/94 Mechanical Ventilator 70 04/05/20 14:30 80 18 120/78 (92) 95 04/05/20 14:00 22 148/94 Mechanical Ventilator 70 04/05/20 14:00 79 22 148/94 (112) 94 04/05/20 13:30 87 23 148/98 (115) 92 04/05/20 13:00 25 143/90 Mechanical Ventilator 70 04/05/20 13:00 104 25 143/90 (107) 90 04/05/20 12:30 99 26 146/92 (110) 93 04/05/20 12:00 70 04/05/20 12:00 98.0 95 18 156/101 (119) 92 04/05/20 12:00 20 152/102 Mechanical Ventilator 70 04/05/20 12:00 Mechanical Ventilator 04/05/20 12:00 95 04/05/20 11:30 97 18 152/102 (119) 91 04/05/20 11:03 81 21 70 04/05/20 11:00 16 153/93 Mechanical Ventilator 70 04/05/20 11:00 93 16 153/93 (113) 90 04/05/20 10:30 92 19 163/118 (133) 93 04/05/20 10:00 23 165/121 Mechanical Ventilator 70 04/05/20 10:00 87 23 165/121 (136) 94 Intake and Output 04/05/20 04/06/20 19:00 07:00 Intake Total 1065 ml 380 ml Output Total 1345 ml 485 ml Balance -280 ml -105 ml Free Water 165 ml IV Total 380 ml 20 ml Tube Feeding 450 ml 360 ml Other 70 ml Output Urine Total 1345 ml 485 ml Stool Total 0 ml Current Medications Medications (Trade) Dose Ordered Sig/Dennis Route PRN Reason Start Time Stop Time Status Last Admin Dose Admin Acetaminophen (Tylenol) 650 mg Q4H PRN ORAL Mild Pain (Pain Scale 1-3) 03/09/20 12:00 04/08/20 11:59 04/04/20 01:16 Bisacodyl (Dulcolax) 10 mg Q12H PRN RECTAL Constipation 03/18/20 16:45 06/16/20 16:44 Chlorhexidine Gluconate (Marlen-Hex 2%) 1 applic DAILY@1999 TOPIC 03/30/20 20:00 06/28/20 19:59 04/05/20 20:05 Clonidine HCl (Catapres TTS-1) 1 patch QWEEK TDERMAL 04/05/20 21:00 07/04/20 20:59 04/05/20 20:16 Dextrose (Dextrose 50%) 25 ml Q30M PRN IV Hypoglycemia 03/29/20 20:45 06/27/20 20:44 Dextrose (Dextrose 50%) 50 ml Q30M PRN IV Hypoglycemia 03/29/20 20:45 06/27/20 20:44 Enoxaparin Sodium (Lovenox) 40 mg DAILY SUBQ 03/13/20 12:00 06/11/20 11:59 04/06/20 09:16 Fentanyl Citrate 250 ml @ 1 mls/hr Q24H IV 04/04/20 20:00 04/09/20 19:59 04/06/20 00:48 Furosemide (Lasix) 20 mg DAILY IV 04/03/20 09:00 04/18/20 13:59 04/05/20 09:34 Hydralazine HCl (Apresoline) 10 mg Q4H PRN IV For High Blood Pressure 03/30/20 12:15 06/28/20 12:14 04/03/20 21:00 Insulin Aspart (NovoLOG) Q6HR SUBQ 03/30/20 00:00 06/28/20 00:00 04/06/20 06:29 Labetalol HCl (Normodyne) 10 mg Q4H PRN IV sbp greater tahtn 160 03/28/20 17:30 04/27/20 17:29 Meropenem 1 gm/ Sodium Chloride 100 ml @ 200 mls/hr Q8HR IVPB 04/02/20 22:00 04/08/20 21:59 04/06/20 05:53 Methylprednisolone Sodium Succinate (Solu-MEDROL) 40 mg EVERY 8 HOURS IVP 03/22/20 14:00 06/20/20 13:59 04/06/20 05:53 Metoclopramide HCl (Reglan) 10 mg Q6H IVP 03/30/20 15:00 04/29/20 14:59 04/06/20 09:15 Micafungin Sodium 100 mg/Sodium Chloride 100 ml @ 100 mls/hr Q24H IVPB 03/29/20 15:00 04/11/20 23:59 04/05/20 17:12 Pantoprazole (Protonix) 40 mg EVERY 12 HOURS IVP 04/01/20 21:00 05/01/20 20:59 04/06/20 09:15 Polyethylene Glycol (Miralax) 17 gm BEDTIME ORAL 03/08/20 21:00 04/07/20 20:59 04/03/20 21:07 Propofol 100 ml @ 0 mls/hr Q12H PRN IV DIRECTED 04/05/20 21:42 04/07/20 21:41 04/06/20 05:53 Trimethoprim/ Sulfamethoxazole (Bactrim-DS) 1 tab Q24H ORAL 03/29/20 17:00 04/11/20 16:59 04/05/20 17:12 Vitamin D (Vitamin D) 5,000 unit DAILY ORAL 03/15/20 09:00 04/14/20 08:59 04/06/20 09:16 Laboratory Tests 04/06/20 04:07: White Blood Count 9.6, Red Blood Count 4.30L, Hemoglobin 12.0L, Hematocrit 38.7L , Mean Corpuscular Volume 90, Mean Corpuscular Hemoglobin 28.0, Mean Corpuscular Hemoglobin Concent 31.1L, Red Cell Distribution Width 16.1H, Platelet Count 222, Mean Platelet Volume 6.9, Neutrophils (%) (Auto) , Lymphocytes (%) (Auto) , Monocytes (%) (Auto) , Eosinophils (%) (Auto) , Basophils (%) (Auto) , Differential Total Cells Counted 100, Neutrophils % (Manual) 85H, Lymphocytes % (Manual) 8L, Monocytes % (Manual) 1, Eosinophils % (Manual) 0, Basophils % (Manual) 0, Band Neutrophils 6, Platelet Estimate Adequate, Platelet Morphology Normal, Hypochromasia 1+, Anisocytosis 1+, Sodium Level 152H, Potassium Level 4.2, Chloride Level 113H, Carbon Dioxide Level 35H, Anion Gap 4L, Blood Urea Nitrogen 36H, Creatinine 0.5L, Estimat Glomerular Filtration Rate > 60, Glucose Level 170H, Calcium Level 8.7, Total Bilirubin 1.0, Aspartate Amino Transf (AST/SGOT) 78H, Alanine Aminotransferase (ALT/SGPT) 329H, Alkaline Phosphatase 171H, Total Protein 5.6L, Albumin 2.3L, Globulin 3.3, Albumin/Globulin Ratio 0.7L, Triglycerides Level 358H Height (Feet): 5 Height (Inches): 10.00 Weight (Pounds): 240 General Appearance: no apparent distress, other - Blood pressure 90 systolic EENT: other - Intubated on ventilator Cardiovascular: normal rate Respiratory/Chest: decreased breath sounds Abdomen: distended Rubin Cooper MD Apr 06, 2020 09:39
--- NOTE | 2020-04-06 10:05 | NUR ---
NURSE NOTES: Propofol remains at 20mcg/kg/min with fentanyl at rate of 200mcg/hr. rass scale is at -2 with patient calm and relaxed. remains on cooling blanket, will continue plan of care
--- NOTE | 2020-04-06 10:45 | NUR ---
NURSE NOTES: Dr. Mata informed of the patient triglycerides levels, continue to monitor triglycerides levels. no orders given to wean patient at this time due to fio2 remains at 65% and peep is 8.
--- NOTE | 2020-04-06 11:00 | Pulmonology Progress Note ---
Subjective ROS Limited/Unobtainable: Yes Interval Events: Intubated 03/28/20 Constitutional: Reports: fever, fatigue, other - + vent, more alert, no pressors HEENT: Repors: no symptoms Respiratory: Reports: dry cough, shortness of breath Cardiovascular: Reports: no symptoms Gastrointestinal/Abdominal: Denies: nausea, vomiting, diarrhea Psychiatric: Reports: other - NA Skin: Denies: rash Musculoskeletal: Reports: other - NA Allergies: Coded Allergies: No Known Allergies (Unverified , 02/05/20) Objective Last 24 Hour Vital Signs Date Time Temp Pulse Resp B/P (MAP) Pulse Ox O2 Delivery O2 Flow Rate FiO2 04/06/20 10:00 67 16 96/55 (69) 94 04/06/20 09:00 62 16 87/62 (70) 94 04/06/20 08:30 96 16 83/59 (67) 96 04/06/20 08:00 96 16 108/72 (84) 94 04/06/20 08:00 61 04/06/20 08:00 Mechanical Ventilator 04/06/20 07:52 65 04/06/20 07:30 94 16 81/60 (67) 94 04/06/20 07:19 60 18 65 04/06/20 07:00 94 16 86/65 (72) 92 04/06/20 06:30 96.7 73 17 92 04/06/20 06:15 62 16 92 04/06/20 06:00 66 16 103/70 (81) 91 04/06/20 06:00 16 132/75 Mechanical Ventilator 65 04/06/20 05:53 18 138/99 Mechanical Ventilator 65 04/06/20 05:45 82 24 92 04/06/20 05:30 83 19 138/99 (112) 86 04/06/20 05:15 74 16 94 04/06/20 05:00 17 138/99 Mechanical Ventilator 70 04/06/20 05:00 75 16 94/72 (79) 94 04/06/20 04:45 75 16 93 04/06/20 04:30 78 16 105/70 (82) 93 04/06/20 04:15 78 17 95 04/06/20 04:13 82 04/06/20 04:00 Mechanical Ventilator 04/06/20 04:00 60 04/06/20 04:00 16 105/70 Mechanical Ventilator 60 04/06/20 04:00 98.6 84 15 130/75 (93) 94 04/06/20 03:45 83 16 94 04/06/20 03:30 89 17 117/79 (92) 92 04/06/20 03:20 96 20 60 04/06/20 03:15 88 17 92 04/06/20 03:00 16 117/79 Mechanical Ventilator 60 04/06/20 03:00 94 21 144/88 (106) 92 04/06/20 02:45 95 20 92 04/06/20 02:30 94 13 148/96 (113) 92 04/06/20 02:15 96 17 91 04/06/20 02:00 19 148/96 Mechanical Ventilator 65 04/06/20 02:00 97.8 98 20 151/94 (113) 91 04/06/20 01:45 92 19 92 04/06/20 01:34 95 20 70 04/06/20 01:30 94 19 145/93 (110) 93 04/06/20 01:15 81 16 94 04/06/20 01:00 86 16 162/89 (113) 96 04/06/20 01:00 19 145/93 Mechanical Ventilator 70 04/06/20 00:48 16 93/75 Mechanical Ventilator 65 04/06/20 00:45 72 16 96 04/06/20 00:35 71 17 94/70 (78) 94 04/06/20 00:30 73 16 73/57 (62) 94 04/06/20 00:15 74 16 93 04/06/20 00:00 97.8 74 16 94/64 (74) 94 04/06/20 00:00 65 04/06/20 00:00 Mechanical Ventilator 04/06/20 00:00 16 95/71 Mechanical Ventilator 70 04/05/20 23:45 90 22 93 04/05/20 23:37 82 04/05/20 23:30 77 20 138/91 (107) 97 04/05/20 23:15 76 16 96 04/05/20 23:00 75 15 105/74 (84) 94 04/05/20 23:00 16 138/91 Mechanical Ventilator 70 04/05/20 22:45 95 21 92 04/05/20 22:30 71 16 130/85 (100) 94 04/05/20 22:28 28 159/92 Mechanical Ventilator 70 04/05/20 22:15 78 21 94 04/05/20 22:00 97.8 83 20 150/93 (112) 94 04/05/20 22:00 70 04/05/20 21:45 75 17 94 04/05/20 21:30 76 17 127/87 (100) 94 04/05/20 21:15 92 19 92 04/05/20 21:00 88 24 144/97 (113) 94 04/05/20 20:45 93 04/05/20 20:30 92 18 148/92 (110) 92 04/05/20 20:16 153/118 04/05/20 20:15 85 18 95 04/05/20 20:00 Mechanical Ventilator 04/05/20 20:00 97.9 100 23 153/118 (130) 92 04/05/20 20:00 70 04/05/20 19:45 83 18 94 04/05/20 19:30 94 21 149/100 (116) 91 04/05/20 19:30 94 21 149/100 (116) 91 04/05/20 19:28 96 04/05/20 19:12 89 20 70 04/05/20 19:00 90 18 148/94 (112) 93 04/05/20 19:00 21 148/94 Mechanical Ventilator 70 04/05/20 18:30 91 20 143/100 (114) 92 04/05/20 18:00 111 22 155/94 (114) 89 04/05/20 18:00 20 155/94 Mechanical Ventilator 70 04/05/20 17:30 112 19 151/98 (115) 92 04/05/20 17:00 111 20 151/93 (112) 91 04/05/20 17:00 20 151/98 Mechanical Ventilator 70 04/05/20 16:30 116 19 166/103 (124) 91 04/05/20 16:16 118 21 152/94 (113) 91 04/05/20 16:00 Mechanical Ventilator 04/05/20 16:00 20 152/94 Mechanical Ventilator 70 04/05/20 16:00 70 04/05/20 16:00 98.7 130 22 174/104 (127) 92 04/05/20 16:00 124 04/05/20 15:30 115 20 150/87 (108) 92 04/05/20 15:17 85 22 70 04/05/20 15:00 91 20 136/94 (108) 93 04/05/20 15:00 19 136/94 Mechanical Ventilator 70 04/05/20 14:30 80 18 120/78 (92) 95 04/05/20 14:00 22 148/94 Mechanical Ventilator 70 04/05/20 14:00 79 22 148/94 (112) 94 04/05/20 13:30 87 23 148/98 (115) 92 04/05/20 13:00 25 143/90 Mechanical Ventilator 70 04/05/20 13:00 104 25 143/90 (107) 90 04/05/20 12:30 99 26 146/92 (110) 93 04/05/20 12:00 70 04/05/20 12:00 98.0 95 18 156/101 (119) 92 04/05/20 12:00 20 152/102 Mechanical Ventilator 70 04/05/20 12:00 Mechanical Ventilator 04/05/20 12:00 95 04/05/20 11:30 97 18 152/102 (119) 91 04/05/20 11:03 81 21 70 04/05/20 11:00 16 153/93 Mechanical Ventilator 70 04/05/20 11:00 93 16 153/93 (113) 90 Intake and Output 04/05/20 04/06/20 19:00 07:00 Intake Total 1065 ml 423.063 ml Output Total 1345 ml 485 ml Balance -280 ml -61.937 ml Free Water 165 ml IV Total 380 ml 63.063 ml Tube Feeding 450 ml 360 ml Other 70 ml Output Urine Total 1345 ml 485 ml Stool Total 0 ml General Appearance: WD/WN, no acute distress HEENT: normocephalic, atraumatic Respiratory: chest wall non-tender Cardiovascular: normal rate, regular rhythm Abdomen: normal bowel sounds, soft, non tender, other - obese Laboratory Tests 04/06/20 04:07: White Blood Count 9.6, Red Blood Count 4.30L, Hemoglobin 12.0L, Hematocrit 38.7L , Mean Corpuscular Volume 90, Mean Corpuscular Hemoglobin 28.0, Mean Corpuscular Hemoglobin Concent 31.1L, Red Cell Distribution Width 16.1H, Platelet Count 222, Mean Platelet Volume 6.9, Neutrophils (%) (Auto) , Lymphocytes (%) (Auto) , Monocytes (%) (Auto) , Eosinophils (%) (Auto) , Basophils (%) (Auto) , Diff erential Total Cells Counted 100, Neutrophils % (Manual) 85H, Lymphocytes % (Manual) 8L, Monocytes % (Manual) 1, Eosinophils % (Manual) 0, Basophils % (Manual) 0, Band Neutrophils 6, Platelet Estimate Adequate, Platelet Morphology Normal, Hypochromasia 1+, Anisocytosis 1+, Sodium Level 152H, Potassium Level 4.2, Chloride Level 113H, Carbon Dioxide Level 35H, Anion Gap 4L, Blood Urea Nitrogen 36H, Creatinine 0.5L, Estimat Glomerular Filtration Rate > 60, Glucose Level 170H, Calcium Level 8.7, Total Bilirubin 1.0, Aspartate Amino Transf (AST/SGOT) 78H, Alanine Aminotransferase (ALT/SGPT) 329H, Alkaline Phosphatase 171H, Total Protein 5.6L, Albumin 2.3L, Globulin 3.3, Albumin/Globulin Ratio 0.7L, Triglycerides Level 358H Current Medications Medications (Trade) Dose Ordered Sig/Dennis Route PRN Reason Start Time Stop Time Status Last Admin Dose Admin Acetaminophen (Tylenol) 650 mg Q4H PRN ORAL Mild Pain (Pain Scale 1-3) 03/09/20 12:00 04/08/20 11:59 04/04/20 01:16 Bisacodyl (Dulcolax) 10 mg Q12H PRN RECTAL Constipation 03/18/20 16:45 06/16/20 16:44 Chlorhexidine Gluconate (Marlen-Hex 2%) 1 applic DAILY@1999 TOPIC 03/30/20 20:00 06/28/20 19:59 04/05/20 20:05 Dextrose (Dextrose 50%) 25 ml Q30M PRN IV Hypoglycemia 03/29/20 20:45 06/27/20 20:44 Dextrose (Dextrose 50%) 50 ml Q30M PRN IV Hypoglycemia 03/29/20 20:45 06/27/20 20:44 Enoxaparin Sodium (Lovenox) 40 mg DAILY SUBQ 03/13/20 12:00 06/11/20 11:59 04/06/20 09:16 Fentanyl Citrate 250 ml @ 1 mls/hr Q24H IV 04/04/20 20:00 2/7/21 19:59 04/06/20 00:48 Hydralazine HCl (Apresoline) 10 mg Q4H PRN IV For High Blood Pressure 03/30/20 12:15 06/28/20 12:14 04/03/20 21:00 Insulin Aspart (NovoLOG) Q6HR SUBQ 03/30/20 00:00 06/28/20 00:00 04/06/20 06:29 Labetalol HCl (Normodyne) 10 mg Q4H PRN IV sbp greater tahtn 160 03/28/20 17:30 04/27/20 17:29 Meropenem 1 gm/ Sodium Chloride 100 ml @ 200 mls/hr Q8HR IVPB 04/02/20 22:00 04/08/20 21:59 04/06/20 05:53 Methylprednisolone Sodium Succinate (Solu-MEDROL) 40 mg EVERY 8 HOURS IVP 03/22/20 14:00 06/20/20 13:59 04/06/20 05:53 Metoclopramide HCl (Reglan) 10 mg Q6H IVP 03/30/20 15:00 04/29/20 14:59 04/06/20 09:15 Micafungin Sodium 100 mg/Sodium Chloride 100 ml @ 100 mls/hr Q24H IVPB 03/29/20 15:00 04/11/20 23:59 04/05/20 17:12 Pantoprazole (Protonix) 40 mg EVERY 12 HOURS IVP 04/01/20 21:00 05/01/20 20:59 04/06/20 09:15 Polyethylene Glycol (Miralax) 17 gm BEDTIME ORAL 03/08/20 21:00 04/07/20 20:59 04/03/20 21:07 Propofol 100 ml @ 0 mls/hr Q12H PRN IV DIRECTED 04/05/20 21:42 04/07/20 21:41 04/06/20 05:53 Trimethoprim/ Sulfamethoxazole (Bactrim-DS) 1 tab Q24H ORAL 03/29/20 17:00 04/11/20 16:59 04/05/20 17:12 Vitamin D (Vitamin D) 5,000 unit DAILY ORAL 03/15/20 09:00 04/14/20 08:59 04/06/20 09:16 Assessment/Plan Assessment/Plan Assessment/Plan 1.COVID-19 pneumonia. - Completed specific therapies - On solumedrol 2. DVT ppx - on lovenox 3. Hypertension - no longer on meds - May need pressors 4. Leukocytosis; - ID following - On abx - Budding yeast on blood CS 5. Elevated LFT - positive Hep C; treated in the past with IF 6. Respiratory failure -Intubated 03/28/20 -Family aware - Prognosis grave - Increased Vt to 750; rate to 18 -On Fentanyl 7. Discussed with cardiology -No evidence for cardiac dysfunction or PE -tachycardic; will increase sedation 8. AMS -Has had a change in mental status -back on sedation - has apparent left arm paresis - Will consider CT brain when more stable S/p new PICC line On abx Slowly improving oxygenation Noted left upper extremity swelling. Will obtain duplex Continue sedation, DC propofol given high triglycerides. Continue fentanyl and Versed. Begin weaning when oxygenation requirements are decreased. John Mata MD Apr 06, 2020 11:00
--- NOTE | 2020-04-06 12:55 | NUR ---
NURSE NOTES: Dr. Mata informed of the venous duplex on the left upper arm, there is a acute occlusive (partially) thrombus seen on the subclavian vein to axillary vein, ordered to place patient on Lovenox 80mg BID subq,
--- NOTE | 2020-04-06 13:13 | Diagnostic Imaging Report ---
Indication: Left arm pain Technique: Grayscale and duplex Doppler imaging of the veins in the left upper extremity performed in real time utilizing compression and augmentation. Comparison: None Findings: The left internal jugular vein is patent and compressible with normal color flow. Imaged portions of the central left subclavian vein are patent. There is echogenic thrombus noted within the peripheral portions of the subclavian vein there is echogenic thrombus and lack of complete compressibility involving the left axillary vein. Imaged portions of the left brachial, basilic and cephalic veins are patent and normally compressible. Images forearm veins are patent. 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 Findings conveyed to the patient's treating RN (Kevin) at approximately 12:30, as documented in the preliminary report. RN to convey findings to shimon INTERIANO.
--- NOTE | 2020-04-06 13:18 | Diagnostic Imaging Report ---
Procedure: XRAY Chest 1v Reason for study: Shortness of breath Comparison films: 04/02/2020. FINDINGS: Endotracheal tube and NG tube remain in place. There is worsening of right basilar infiltrates. Some haziness in left lung base unchanged. Cardiac and mediastinal silhouette are within normal limits. CP angles are sharp. The bony thorax appear unremarkable. IMPRESSION: Worsening of right basilar infiltrate.
--- NOTE | 2020-04-06 13:45 | NUR ---
NURSE NOTES: Dr. cheek informed the tube feeding has been increased to 40ml/hr after the residuals were noted to range from 35-45mls. patient is able to hold left arm against gravity after lifting arm in the air. patient remains cool while on cooling blanket.
--- NOTE | 2020-04-06 14:14 | NUR ---
CASE MANAGEMENT:REVIEW 04/06/20 SI: COVID PNA. UTI. RESP FAILURE~INTUBATED 98.6 84 15 130/75 95% ON VENT SUPPORT 94% W/65% FIO2 H/H-12.0/38.7 NA+152 CO2+35 BUN+36 IS: FENTANYL GTT PROPOFOL GTT IV LASIX QD IV MEROPENEM Q8HRS IV PROTONIX Q12 IV MICAFUNGIN Q24 IV SOLUMEDROL Q8HRS BACTRIM NG Q24 IV REGLAN Q6HRS : ICU STATUS
--- NOTE | 2020-04-06 14:25 | NUR ---
NURSE NOTES: New bottle of propofol along with tubing, dose remains at 20mcg/kg/min. patient remains at RASS scale of -2, tube feeding is running at 40ml/hr.
--- NOTE | 2020-04-06 14:29 | General Progress Note ---
Subjective ROS Limited/Unobtainable: No Allergies: Coded Allergies: No Known Allergies (Unverified , 02/05/20) Objective Last 24 Hour Vital Signs Date Time Temp Pulse Resp B/P (MAP) Pulse Ox O2 Delivery O2 Flow Rate FiO2 04/06/20 13:59 23 165/86 Mechanical Ventilator 65 04/06/20 12:19 26 133/68 Mechanical Ventilator 65 04/06/20 12:00 84 17 146/76 (99) 94 04/06/20 12:00 65 04/06/20 12:00 94 04/06/20 11:00 67 16 132/68 (89) 94 04/06/20 10:00 67 16 96/55 (69) 94 04/06/20 09:00 62 16 87/62 (70) 94 04/06/20 08:30 96 16 83/59 (67) 96 04/06/20 08:00 96 16 108/72 (84) 94 04/06/20 08:00 61 04/06/20 08:00 Mechanical Ventilator 04/06/20 07:52 65 04/06/20 07:30 94 16 81/60 (67) 94 04/06/20 07:19 60 18 65 04/06/20 07:00 94 16 86/65 (72) 92 04/06/20 06:30 96.7 73 17 92 04/06/20 06:15 62 16 92 04/06/20 06:00 66 16 103/70 (81) 91 04/06/20 06:00 16 132/75 Mechanical Ventilator 65 04/06/20 05:53 18 138/99 Mechanical Ventilator 65 04/06/20 05:45 82 24 92 04/06/20 05:30 83 19 138/99 (112) 86 04/06/20 05:15 74 16 94 04/06/20 05:00 17 138/99 Mechanical Ventilator 70 04/06/20 05:00 75 16 94/72 (79) 94 04/06/20 04:45 75 16 93 04/06/20 04:30 78 16 105/70 (82) 93 04/06/20 04:15 78 17 95 04/06/20 04:13 82 04/06/20 04:00 Mechanical Ventilator 04/06/20 04:00 60 04/06/20 04:00 16 105/70 Mechanical Ventilator 60 04/06/20 04:00 98.6 84 15 130/75 (93) 94 04/06/20 03:45 83 16 94 04/06/20 03:30 89 17 117/79 (92) 92 04/06/20 03:20 96 20 60 04/06/20 03:15 88 17 92 04/06/20 03:00 16 117/79 Mechanical Ventilator 60 04/06/20 03:00 94 21 144/88 (106) 92 04/06/20 02:45 95 20 92 04/06/20 02:30 94 13 148/96 (113) 92 04/06/20 02:15 96 17 91 04/06/20 02:00 19 148/96 Mechanical Ventilator 65 04/06/20 02:00 97.8 98 20 151/94 (113) 91 04/06/20 01:45 92 19 92 04/06/20 01:34 95 20 70 04/06/20 01:30 94 19 145/93 (110) 93 04/06/20 01:15 81 16 94 04/06/20 01:00 86 16 162/89 (113) 96 04/06/20 01:00 19 145/93 Mechanical Ventilator 70 04/06/20 00:48 16 93/75 Mechanical Ventilator 65 04/06/20 00:45 72 16 96 04/06/20 00:35 71 17 94/70 (78) 94 04/06/20 00:30 73 16 73/57 (62) 94 04/06/20 00:15 74 16 93 04/06/20 00:00 97.8 74 16 94/64 (74) 94 04/06/20 00:00 65 04/06/20 00:00 Mechanical Ventilator 04/06/20 00:00 16 95/71 Mechanical Ventilator 70 04/05/20 23:45 90 22 93 04/05/20 23:37 82 04/05/20 23:30 77 20 138/91 (107) 97 04/05/20 23:15 76 16 96 04/05/20 23:00 75 15 105/74 (84) 94 04/05/20 23:00 16 138/91 Mechanical Ventilator 70 04/05/20 22:45 95 21 92 04/05/20 22:30 71 16 130/85 (100) 94 04/05/20 22:28 28 159/92 Mechanical Ventilator 70 04/05/20 22:15 78 21 94 04/05/20 22:00 97.8 83 20 150/93 (112) 94 04/05/20 22:00 70 04/05/20 21:45 75 17 94 04/05/20 21:30 76 17 127/87 (100) 94 04/05/20 21:15 92 19 92 04/05/20 21:00 88 24 144/97 (113) 94 04/05/20 20:45 93 04/05/20 20:30 92 18 148/92 (110) 92 04/05/20 20:16 153/118 04/05/20 20:15 85 18 95 04/05/20 20:00 Mechanical Ventilator 04/05/20 20:00 97.9 100 23 153/118 (130) 92 04/05/20 20:00 70 04/05/20 19:45 83 18 94 04/05/20 19:30 94 21 149/100 (116) 91 04/05/20 19:30 94 21 149/100 (116) 91 04/05/20 19:28 96 04/05/20 19:12 89 20 70 04/05/20 19:00 90 18 148/94 (112) 93 04/05/20 19:00 21 148/94 Mechanical Ventilator 70 04/05/20 18:30 91 20 143/100 (114) 92 04/05/20 18:00 111 22 155/94 (114) 89 04/05/20 18:00 20 155/94 Mechanical Ventilator 70 04/05/20 17:30 112 19 151/98 (115) 92 04/05/20 17:00 111 20 151/93 (112) 91 04/05/20 17:00 20 151/98 Mechanical Ventilator 70 04/05/20 16:30 116 19 166/103 (124) 91 04/05/20 16:16 118 21 152/94 (113) 91 04/05/20 16:00 Mechanical Ventilator 04/05/20 16:00 20 152/94 Mechanical Ventilator 70 04/05/20 16:00 70 04/05/20 16:00 98.7 130 22 174/104 (127) 04/05/20 16:00 124 04/05/20 15:30 115 20 150/87 (108) 92 04/05/20 15:17 85 22 70 04/05/20 15:00 91 20 136/94 (108) 93 04/05/20 15:00 19 136/94 Mechanical Ventilator 70 04/05/20 14:30 80 18 120/78 (92) 95 Intake and Output 04/05/20 04/06/20 19:00 07:00 Intake Total 1065 ml 423.063 ml Output Total 1345 ml 485 ml Balance -280 ml -61.937 ml Free Water 165 ml IV Total 380 ml 63.063 ml Tube Feeding 450 ml 360 ml Other 70 ml Output Urine Total 1345 ml 485 ml Stool Total 0 ml Laboratory Tests 04/05/20 17:23: POC Whole Blood Glucose 168H 04/06/20 04:07: White Blood Count 9.6, Red Blood Count 4.30L, Hemoglobin 12.0L, Hematocrit 38.7L , Mean Corpuscular Volume 90, Mean Corpuscular Hemoglobin 28.0, Mean Corpuscular Hemoglobin Concent 31.1L, Red Cell Distribution Width 16.1H, Platelet Count 222, Mean Platelet Volume 6.9, Neutrophils (%) (Auto) , Lymphocytes (%) (Auto) , Monocytes (%) (Auto) , Eosinophils (%) (Auto) , Basophils (%) (Auto) , Differential Total Cells Counted 100, Neutrophils % (Manual) 85H, Lymphocytes % (Manual) 8L, Monocytes % (Manual) 1, Eosinophils % (Manual) 0, Basophils % (Manual) 0, Band Neutrophils 6, Platelet Estimate Adequate, Platelet Morphology Normal, Hypochromasia 1+, Anisocytosis 1+, Sodium Level 152H, Potassium Level 4.2, Chloride Level 113H, Carbon Dioxide Level 35H, Anion Gap 4L, Blood Urea Nitrogen 36H, Creatinine 0.5L, Estimat Glomerular Filtration Rate > 60, Glucose Level 170H, Calcium Level 8.7, Total Bilirubin 1.0, Aspartate Amino Transf (AST/SGOT) 78H, Alanine Aminotransferase (ALT/SGPT) 329H, Alkaline Phosphatase 171H, Total Protein 5.6L, Albumin 2.3L, Globulin 3.3, Albumin/Globulin Ratio 0.7L, Triglycerides Level 358H 04/06/20 06:23: POC Whole Blood Glucose 161H Height (Feet): 5 Height (Inches): 10.00 Weight (Pounds): 240 General Appearance: no apparent distress EENT: normal ENT inspection Neck: supple Cardiovascular: normal rate Respiratory/Chest: decreased breath sounds Abdomen: normal bowel sounds, non tender, soft Extremities: non-tender Assessment/Plan Status: stable, progressing Assessment/Plan: hep c + but neg RNA intubated OGTF reglan 10 mg repeat labs fu LFTS will fu Da Quintero MD Apr 06, 2020 14:29
--- NOTE | 2020-04-06 15:01 | NUR ---
NURSE NOTES: Dr. Weinberg asked if the airborne isolation could be removed, by infectious disease and with the negative covid test on 03/29, he expresses the lack of need to maintain the patient on airborne precaution, asked to call the infection control to remove isolation. Infections control called with no ability to leave message on mailbox,
--- NOTE | 2020-04-06 15:22 | Infectious Diseases Prog Note ---
Assessment/Plan Assessment/Plan ASSESSMENT AND PLAN: 1. staph aureus bacteremia/mssa, ? source, ? endocarditis, sepsis, leukocytosis, ? CAP, PJP less likely with HIV negative and steroids < 1 month covid-19 +, hypoxia, sob, chest x-ray worse, ? PE, ? HCAP/aspiration pna recurrent fevers - ? fungal, ? OI leukocytosis noted - ? new infection, ? steroids cocci serology negative, legionella negative, beta 1,3 D-glucan wnl, Il-16 - 13.7 elevated LFT's - ? TPN, ? Bactrim - US without gallbladder disease, + steatosis - d/w GI - TPN more likely than bactrim as etiology e.coli uti - s/p treatment with rocephin, s/p treatment for presumptive pneumocystis pna + yeast in blood, fungemia, ? line infection, sepsis, shock, pna, sc-nf - meropenem - day # 9/10 - micafungin - day # 4/14 (post negative blood cultures - 04/02/20) - picc line changed - surveillance blood cultures negative - bactrim for pneumocystis prophylaxis, s/p pneumocystis treatment - s/p tx for mssa bacteremia and ? endocarditis - monitor hypoxia, labs and chest x-ray - some clinical improvement with decrease in fio2 and now off pressors - guarded condition - monitor fevers 2. covid-19 isolation 3. Hypertension history. Blood pressure treatment primary care team. 4. Elevated blood sugars. Blood sugar treatment per primary care team. 5. No known drug allergies. 6. Social history is positive for smoking. 7. Family history is noncontributory. 8. MAR was noted. 9. Case was discussed with RN. 10. Continue treatment per primary consultants. Subjective Constitutional: Denies: fever HEENT: Reports: congestion Respiratory: Reports: shortness of breath Cardiovascular: Denies: chest pain Gastrointestinal/Abdominal: Denies: nausea, vomiting, diarrhea Genitourinary: Reports: other Neurologic: Reports: other - alert, respsonvie Psychiatric: Reports: other - NA Skin: Denies: rash Hematologic: Denies: bleeding Musculoskeletal: Reports: other - NA Allergies: Coded Allergies: No Known Allergies (Unverified , 02/05/20) Objective Last 24 Hour Vital Signs Date Time Temp Pulse Resp B/P (MAP) Pulse Ox O2 Delivery O2 Flow Rate FiO2 04/06/20 14:00 109 20 166/91 (116) 87 04/06/20 13:59 23 165/86 Mechanical Ventilator 65 04/06/20 13:30 99 22 165/86 (112) 90 04/06/20 13:00 94 18 163/84 (110) 91 04/06/20 12:30 89 18 157/78 (104) 89 04/06/20 12:19 26 133/68 Mechanical Ventilator 65 04/06/20 12:00 84 17 146/76 (99) 94 04/06/20 12:00 Mechanical Ventilator 04/06/20 12:00 65 04/06/20 12:00 94 04/06/20 11:30 100.0 66 15 132/68 (89) 95 04/06/20 11:00 67 16 132/68 (89) 94 04/06/20 10:30 62 16 99/54 (69) 93 04/06/20 10:00 67 16 96/55 (69) 94 04/06/20 09:30 64 16 119/62 (81) 94 04/06/20 09:00 62 16 87/62 (70) 94 04/06/20 08:30 96 16 83/59 (67) 96 04/06/20 08:00 96 16 108/72 (84) 94 04/06/20 08:00 61 04/06/20 08:00 Mechanical Ventilator 04/06/20 07:52 65 04/06/20 07:30 94 16 81/60 (67) 94 04/06/20 07:19 60 18 65 04/06/20 07:00 94 16 86/65 (72) 92 04/06/20 06:30 96.7 73 17 92 04/06/20 06:15 62 16 92 04/06/20 06:00 66 16 103/70 (81) 91 04/06/20 06:00 16 132/75 Mechanical Ventilator 65 04/06/20 05:53 18 138/99 Mechanical Ventilator 65 04/06/20 05:45 82 24 92 04/06/20 05:30 83 19 138/99 (112) 86 04/06/20 05:15 74 16 94 04/06/20 05:00 17 138/99 Mechanical Ventilator 70 04/06/20 05:00 75 16 94/72 (79) 94 04/06/20 04:45 75 16 93 04/06/20 04:30 78 16 105/70 (82) 93 04/06/20 04:15 78 17 95 04/06/20 04:13 82 04/06/20 04:00 Mechanical Ventilator 04/06/20 04:00 60 04/06/20 04:00 16 105/70 Mechanical Ventilator 60 04/06/20 04:00 98.6 84 15 130/75 (93) 94 04/06/20 03:45 83 16 94 04/06/20 03:30 89 17 117/79 (92) 92 04/06/20 03:20 96 20 60 04/06/20 03:15 88 17 92 04/06/20 03:00 16 117/79 Mechanical Ventilator 60 04/06/20 03:00 94 21 144/88 (106) 92 04/06/20 02:45 95 20 92 04/06/20 02:30 94 13 148/96 (113) 92 04/06/20 02:15 96 17 91 04/06/20 02:00 19 148/96 Mechanical Ventilator 65 04/06/20 02:00 97.8 98 20 151/94 (113) 91 04/06/20 01:45 92 19 92 04/06/20 01:34 95 20 70 04/06/20 01:30 94 19 145/93 (110) 93 04/06/20 01:15 81 16 94 04/06/20 01:00 86 16 162/89 (113) 96 04/06/20 01:00 19 145/93 Mechanical Ventilator 70 04/06/20 00:48 16 93/75 Mechanical Ventilator 65 04/06/20 00:45 72 16 96 04/06/20 00:35 71 17 94/70 (78) 94 04/06/20 00:30 73 16 73/57 (62) 94 04/06/20 00:15 74 16 93 04/06/20 00:00 97.8 74 16 94/64 (74) 94 04/06/20 00:00 65 04/06/20 00:00 Mechanical Ventilator 04/06/20 00:00 16 95/71 Mechanical Ventilator 70 04/05/20 23:45 90 22 93 04/05/20 23:37 82 04/05/20 23:30 77 20 138/91 (107) 97 04/05/20 23:15 76 16 96 04/05/20 23:00 75 15 105/74 (84) 94 04/05/20 23:00 16 138/91 Mechanical Ventilator 70 04/05/20 22:45 95 21 92 04/05/20 22:30 71 16 130/85 (100) 94 04/05/20 22:28 28 159/92 Mechanical Ventilator 70 04/05/20 22:15 78 21 94 04/05/20 22:00 97.8 83 20 150/93 (112) 94 04/05/20 22:00 70 04/05/20 21:45 75 17 94 04/05/20 21:30 76 17 127/87 (100) 94 04/05/20 21:15 92 19 92 04/05/20 21:00 88 24 144/97 (113) 94 04/05/20 20:45 93 04/05/20 20:30 92 18 148/92 (110) 92 04/05/20 20:16 153/118 04/05/20 20:15 85 18 95 04/05/20 20:00 Mechanical Ventilator 04/05/20 20:00 97.9 100 23 153/118 (130) 92 04/05/20 20:00 70 04/05/20 19:45 83 18 94 04/05/20 19:30 94 21 149/100 (116) 91 04/05/20 19:30 94 21 149/100 (116) 91 04/05/20 19:28 96 04/05/20 19:12 89 20 70 04/05/20 19:00 90 18 148/94 (112) 93 04/05/20 19:00 21 148/94 Mechanical Ventilator 70 04/05/20 18:30 91 20 143/100 (114) 92 04/05/20 18:00 111 22 155/94 (114) 89 04/05/20 18:00 20 155/94 Mechanical Ventilator 70 04/05/20 17:30 112 19 151/98 (115) 92 04/05/20 17:00 111 20 151/93 (112) 91 04/05/20 17:00 20 151/98 Mechanical Ventilator 70 04/05/20 16:30 116 19 166/103 (124) 91 04/05/20 16:16 118 21 152/94 (113) 91 04/05/20 16:00 Mechanical Ventilator 04/05/20 16:00 20 152/94 Mechanical Ventilator 70 04/05/20 16:00 70 04/05/20 16:00 98.7 130 22 174/104 (127) 92 04/05/20 16:00 124 04/05/20 15:30 115 20 150/87 (108) 92 04/05/20 15:17 85 22 70 Height (Feet): 5 Height (Inches): 10.00 Weight (Pounds): 240 General Appearance: no acute distress, other - on vent, NAD HEENT: normocephalic, atraumatic, anicteric, mucous membranes moist Respiratory/Chest: crackles/rales, rhonchi - bilaterally Cardiovascular: normal rate Abdomen: normal bowel sounds, soft, non tender, non distended Genitourinary: other - + joseph Extremities: no cyanosis Skin: no rash 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 The infiltrates are typical for Covid 19. No evidence of pulmonary embolus. CT abdomen and pelvis: IMPRESSION: 1. Scattered hepatic hypodense lesions, too small to characterize on this examination without intravenous contrast. 2. Colonic diverticulosis without evidence of acute diverticulitis. 3. Scattered enlarged mesenteric lymph nodes, presumably reactive. teral pneumonia. The infiltrates are typical for Covid 19. No evidence of pulmonary embolus. Chest x-ray - 12/19/19 - Indication: Shortness of breath Technique: One view of the chest Comparison: 02/17/2020 Findings: Interim worsening of bilateral infiltrates, particularly on the right. The heart is borderline enlarged. The pleural spaces are clear. Left arm PICC is again demonstrated Impression: Worsening bilateral infiltrates over one day, likely pneumonia CT chest - 02/19/20 - IMPRESSION: Increased extensive patchy ground-glass opacities and densities throughout the lungs, suggestive of Covid 19 infection. Chest x-ray 02/23/20 - Procedure: XRAY Chest 1v As Indication: Reason For Exam: INFECT Technique: One view of the chest Comparison: 02/20/2020 Findings: Allowing for differences in exposure technique, bilateral mid and lower lung infiltrates are probably unchanged. The heart size is normal. The pleural spaces are clear. Impression: Unchanged, over 4 days, findings as above. Chest x-ray - 02/25/20 - FINDINGS: Lungs: Interval slightly worsening bilateral airspace disease. Pleural space: Unremarkable. No pneumothorax. Heart: Unremarkable. No cardiomegaly. Mediastinum: Unremarkable. Bones/joints: Unremarkable. IMPRESSION: Interval slightly worsening bilateral airspace disease. Chest x-ray - 03/02/20 - Procedure: XRAY Chest 1v Indication: Shortness of breath Technique: One view of the chest Comparison: 02/25/2020 Findings: Bilateral interstitial and airspace infiltrates are unchanged. The heart size is normal. Left arm PICC is again demonstrated Impression: Unchanged, over one day, findings as above. Chest x-ray - 03/06/20 - Procedure: XRAY Chest 1v Indication: Shortness of breath Technique: One view of the chest Comparison: 03/02/2020 Findings: Bilateral infiltrates are unchanged. Normal heart size. Pleural spaces are clear Chest x-ray - 03/12/10 - Impression: COMPARISON: Chest radiograph March 06, 2020. FINDINGS/IMPRESSION: Improving basilar infiltrates. Follow chest radiograph recommended. The upper lung finley are clear. No pneumothorax. Stable cardiomegaly. Stable left upper extremity PICC line. anged, over 4 days, findings as above. Chest x-ray - 03/17/20 - Procedure: XRAY Chest 1v Indication: Shortness of breath Technique: One view of the chest Comparison: 03/12/2020 Findings: Left arm PICC is again demonstrated. Infiltrates are unchanged. The heart size is upper limits of normal. Impression: Unchanged, over 5 days, findings as above. Abdominal US - IMPRESSION: 1. Gallbladder is normal. 2. Hepatic steatosis. 3. 1.7 cm cyst right kidney. Impression. Chest x-ray - Procedure: XRAY Chest 1v Indication: Shortness of breath Technique: One view of the chest Comparison: 03/17/2020 Findings: Bilateral right greater than left infiltrates again demonstrated. The heart size is normal. There is a left arm PICC in good position. Impression: Unchanged, over 5 days, findings as above. Chest x-ray - 03/29/20 - Procedure: XRAY Chest 1v Indication: Cough Technique: One view of the chest Comparison: 03/28/2020 Findings: Bilateral infiltrates are unchanged or slightly worse, allowing for differences in exposure technique. The pleural spaces are clear. The heart size is normal. Stable satisfactory position of endotracheal tube, left arm PICC. Orogastric tube has retracted somewhat the position remains satisfactory. Impression: Stable to slightly worse bilateral infiltrates. Otherwise little price changer one day Chest x-ray - 03/31/20 - Procedure: XRAY Chest 1v Indication: Post endotracheal tube repositioning Technique: One view of the chest Comparison: 3 hours earlier Findings: Interim advancement of endotracheal tube, tip projecting approximately 5 cm above the sunny. Interim advancement of orogastric tube as well. Bilateral infiltrates are unchanged. Left arm PICC remains Impression: Improved and now satisfactory tube positions as described. ICU nurse Maeve notified at the time of interpretation Chest x-ray - 04/02/20 - COMPARISON: Chest x-rays dated 03/31/20 and 03/12/20. FINDINGS: Lungs: No significant change in bilateral prominent interstitial markings. The lungs are otherwise clear without focal consolidation. Pleural space: Unremarkable. The costophrenic angles are sharp. No visible pneumothorax. Heart: Unremarkable. No cardiomegaly. Mediastinum: Unremarkable. Bones/joints: Unremarkable. Tubes, lines and devices: Endotracheal tube tip 6.5 cm above the sunny. NG tube tip in the distal stomach. Telemetry leads overlie the thorax. IMPRESSION: No significant change in bilateral prominent interstitial markings. Procedure: XRAY Chest 1v Procedure: XRAY Chest 1v Reason for study: Shortness of breath 04/06/20 - Comparison films: 04/02/2020. FINDINGS: Endotracheal tube and NG tube remain in place. There is worsening of right basilar infiltrates. Some haziness in left lung base unchanged. Cardiac and mediastinal silhouette are within normal limits. CP angles are sharp. The bony thorax appear unremarkable. IMPRESSION: Worsening of right basilar infiltrate. Microbiology Date/Time Source Procedure Growth Status 04/02/20 16:35 Blood Blood Culture - Preliminary NO GROWTH AFTER 72 HOURS Resulted 03/29/20 18:57 Indwelling Cath Urine Culture - Final NO GROWTH AFTER 48 HOURS Complete 03/29/20 18:57 Sputum Gram Stain - Final Complete 03/29/20 18:57 Sputum Culture - Final Kat Albicans Usual Upper Respiratory Hillary Complete Laboratory Tests Test 2/3/21 17:23 04/06/20 04:07 04/06/20 06:23 POC Whole Blood Glucose 168 MG/DL (74-106) H 161 MG/DL (74-106) H White Blood Count 9.6 K/UL (4.8-10.8) Red Blood Count 4.30 M/UL (4.70-6.10) L Hemoglobin 12.0 G/DL (14.2-18.0) L Hematocrit 38.7 % (42.0-52.0) L Mean Corpuscular Volume 90 FL (80-99) Mean Corpuscular Hemoglobin 28.0 PG (27.0-31.0) Mean Corpuscular Hemoglobin Concent 31.1 G/DL (32.0-36.0) L Red Cell Distribution Width 16.1 % (11.6-14.8) H Platelet Count 222 K/UL (150-450) Mean Platelet Volume 6.9 FL (6.5-10.1) Neutrophils (%) (Auto) % (45.0-75.0) Lymphocytes (%) (Auto) % (20.0-45.0) Monocytes (%) (Auto) % (1.0-10.0) Eosinophils (%) (Auto) % (0.0-3.0) Basophils (%) (Auto) % (0.0-2.0) Differential Total Cells Counted 100 Neutrophils % (Manual) 85 % (45-75) H Lymphocytes % (Manual) 8 % (20-45) L Monocytes % (Manual) 1 % (1-10) Eosinophils % (Manual) 0 % (0-3) Basophils % (Manual) 0 % (0-2) Band Neutrophils 6 % (0-8) Platelet Estimate Adequate Platelet Morphology Normal Hypochromasia 1+ Anisocytosis 1+ Sodium Level 152 MMOL/L (136-145) H Potassium Level 4.2 MMOL/L (3.5-5.1) Chloride Level 113 MMOL/L (98-107) H Carbon Dioxide Level 35 MMOL/L (21-32) H Anion Gap 4 mmol/L (5-15) L Blood Urea Nitrogen 36 mg/dL (7-18) H Creatinine 0.5 MG/DL (0.55-1.30) L Estimat Glomerular Filtration Rate > 60 mL/min (>60) Glucose Level 170 MG/DL (74-106) H Calcium Level 8.7 MG/DL (8.5-10.1) Total Bilirubin 1.0 MG/DL (0.2-1.0) Aspartate Amino Transf (AST/SGOT) 78 U/L (15-37) H Alanine Aminotransferase (ALT/SGPT) 329 U/L (12-78) H Alkaline Phosphatase 171 U/L (46-116) H Total Protein 5.6 G/DL (6.4-8.2) L Albumin 2.3 G/DL (3.4-5.0) L Globulin 3.3 g/dL Albumin/Globulin Ratio 0.7 (1.0-2.7) L Triglycerides Level 358 MG/DL (30-150) H Current Medications Medications (Trade) Dose Ordered Sig/Dennis Route PRN Reason Start Time Stop Time Status Last Admin Dose Admin Acetaminophen (Tylenol) 650 mg Q4H PRN ORAL Mild Pain (Pain Scale 1-3) 03/09/20 12:00 04/08/20 11:59 04/04/20 01:16 Bisacodyl (Dulcolax) 10 mg Q12H PRN RECTAL Constipation 03/18/20 16:45 06/16/20 16:44 Chlorhexidine Gluconate (Marlen-Hex 2%) 1 applic DAILY@2000 TOPIC 03/30/20 20:00 06/28/20 19:59 04/05/20 20:05 Dextrose (Dextrose 50%) 25 ml Q30M PRN IV Hypoglycemia 03/29/20 20:45 06/27/20 20:44 Dextrose (Dextrose 50%) 50 ml Q30M PRN IV Hypoglycemia 03/29/20 20:45 06/27/20 20:44 Enoxaparin Sodium (Lovenox) 80 mg EVERY 12 HOURS SUBQ 04/06/20 21:00 07/05/20 20:59 Fentanyl Citrate 250 ml @ 1 mls/hr Q24H IV 04/04/20 20:00 04/09/20 19:59 04/06/20 12:19 Hydralazine HCl (Apresoline) 10 mg Q4H PRN IV For High Blood Pressure 03/30/20 12:15 06/28/20 12:14 04/03/20 21:00 Insulin Aspart (NovoLOG) Q6HR SUBQ 03/30/20 00:00 06/28/20 00:00 04/06/20 06:29 Labetalol HCl (Normodyne) 10 mg Q4H PRN IV sbp greater tahtn 160 03/28/20 17:30 04/27/20 17:29 Meropenem 1 gm/ Sodium Chloride 100 ml @ 200 mls/hr Q8HR IVPB 04/02/20 22:00 04/08/20 21:59 04/06/20 13:58 Methylprednisolone Sodium Succinate (Solu-MEDROL) 40 mg EVERY 8 HOURS IVP 03/22/20 14:00 06/20/20 13:59 04/06/20 13:58 Metoclopramide HCl (Reglan) 10 mg Q6H IVP 03/30/20 15:00 04/29/20 14:59 04/06/20 09:15 Micafungin Sodium 100 mg/Sodium Chloride 100 ml @ 100 mls/hr Q24H IVPB 03/29/20 15:00 04/11/20 23:59 04/05/20 17:12 Pantoprazole (Protonix) 40 mg EVERY 12 HOURS IVP 04/01/20 21:00 05/01/20 20:59 04/06/20 09:15 Polyethylene Glycol (Miralax) 17 gm BEDTIME ORAL 03/08/20 21:00 04/07/20 20:59 04/03/20 21:07 Propofol 100 ml @ 0 mls/hr Q12H PRN IV DIRECTED 04/05/20 21:42 04/07/20 21:41 04/06/20 13:59 Trimethoprim/ Sulfamethoxazole (Bactrim-DS) 1 tab Q24H ORAL 03/29/20 17:00 04/11/20 16:59 04/05/20 17:12 Vitamin D (Vitamin D) 5,000 unit DAILY ORAL 03/15/20 09:00 04/14/20 08:59 04/06/20 09:16 Kisha Salazar MD Apr 06, 2020 15:22
--- NOTE | 2020-04-06 18:15 | NUR ---
NURSE NOTES: Dr. Awan updated on the patient current status at the bedside, preformed assessment and reviewed ekg taken on 04/05/20 in the evening. ordered to have a repeat ekg to be done,
--- NOTE | 2020-04-06 18:42 | Cardiology Progress Note ---
Assessment/Plan Assessment/Plan Acute covid 19 pneumonia hypoxemia infiltrate bilat bacteremia hypernatremia / hyponatremia mild abn lfts tachy post intubation fever fungemia dvt upper ext ekg ekg show some st elelvation in inferior lead form last ntie not typical pattern of mi r waves look fine , no st elevation in other lead to suggest effusion he has no sx to suggest acs on my personal questioning will have ekg repeated trop tonite and in am will repeat echo tomorrow to see if any wall motion abn or effusion he is nwo on 65 % and looks comfortable with sat on 95% !! communicates with head gesture hr is normal bp seems better is on prn iv hydralazine and labetolol now back on tts patch will addnorvasc now that has an ngt hypoxemia unlikely cardiac related on dvt ppx dose tube feeding echo reviewed last on 03/28 still shows normal lv function no valve pathology will repat in am cxr reviwed worsening ro right sided infiltrate wbc improved tele reviewed sinus remains critical d/w rn diuretic per dr parekh in he setting of hypernatremia now is on full dose anticoag due to dvt ue if trop abn will start on ecotrin as well covid pcr negative , however considering that it took 3 tests to finally initially identify his covid infection i am not sure if we can trust Subjective Subjective i visited pt to day dieneis any chest pain or sob or dizziness no nause or vomitting per rn doing ok no secrestion Objective Last 24 Hour Vital Signs Date Time Temp Pulse Resp B/P (MAP) Pulse Ox O2 Delivery O2 Flow Rate FiO2 04/06/20 16:00 Mechanical Ventilator 04/06/20 16:00 65 04/06/20 16:00 106 04/06/20 16:00 101 20 154/86 (108) 91 04/06/20 15:12 114 23 65 04/06/20 15:00 104 20 151/89 (109) 92 04/06/20 14:00 109 20 166/91 (116) 87 04/06/20 13:59 23 165/86 Mechanical Ventilator 65 04/06/20 13:30 99 22 165/86 (112) 90 04/06/20 13:00 94 18 163/84 (110) 91 04/06/20 12:30 89 18 157/78 (104) 89 04/06/20 12:19 26 133/68 Mechanical Ventilator 65 04/06/20 12:00 84 17 146/76 (99) 94 04/06/20 12:00 Mechanical Ventilator 04/06/20 12:00 65 04/06/20 12:00 94 04/06/20 11:30 100.0 66 15 132/68 (89) 95 04/06/20 11:17 88 18 65 04/06/20 11:00 67 16 132/68 (89) 94 04/06/20 10:30 62 16 99/54 (69) 93 04/06/20 10:00 67 16 96/55 (69) 94 04/06/20 09:30 64 16 119/62 (81) 94 04/06/20 09:00 62 16 87/62 (70) 94 04/06/20 08:30 96 16 83/59 (67) 96 04/06/20 08:00 96 16 108/72 (84) 94 04/06/20 08:00 61 04/06/20 08:00 Mechanical Ventilator 04/06/20 07:52 65 04/06/20 07:30 94 16 81/60 (67) 94 04/06/20 07:19 60 18 65 04/06/20 07:00 94 16 86/65 (72) 92 04/06/20 06:30 96.7 73 17 92 04/06/20 06:15 62 16 92 04/06/20 06:00 66 16 103/70 (81) 91 04/06/20 06:00 16 132/75 Mechanical Ventilator 65 04/06/20 05:53 18 138/99 Mechanical Ventilator 65 04/06/20 05:45 82 24 92 04/06/20 05:30 83 19 138/99 (112) 86 04/06/20 05:15 74 16 94 04/06/20 05:00 17 138/99 Mechanical Ventilator 70 04/06/20 05:00 75 16 94/72 (79) 94 04/06/20 04:45 75 16 93 04/06/20 04:30 78 16 105/70 (82) 93 04/06/20 04:15 78 17 95 04/06/20 04:13 82 04/06/20 04:00 Mechanical Ventilator 04/06/20 04:00 60 04/06/20 04:00 16 105/70 Mechanical Ventilator 60 04/06/20 04:00 98.6 84 15 130/75 (93) 94 04/06/20 03:45 83 16 94 04/06/20 03:30 89 17 117/79 (92) 92 04/06/20 03:20 96 20 60 04/06/20 03:15 88 17 92 04/06/20 03:00 16 117/79 Mechanical Ventilator 60 04/06/20 03:00 94 21 144/88 (106) 92 04/06/20 02:45 95 20 92 04/06/20 02:30 94 13 148/96 (113) 92 04/06/20 02:15 96 17 91 04/06/20 02:00 19 148/96 Mechanical Ventilator 65 04/06/20 02:00 97.8 98 20 151/94 (113) 91 04/06/20 01:45 92 19 92 04/06/20 01:34 95 20 70 04/06/20 01:30 94 19 145/93 (110) 93 04/06/20 01:15 81 16 94 04/06/20 01:00 86 16 162/89 (113) 96 04/06/20 01:00 19 145/93 Mechanical Ventilator 70 04/06/20 00:48 16 93/75 Mechanical Ventilator 65 04/06/20 00:45 72 16 96 04/06/20 00:35 71 17 94/70 (78) 94 04/06/20 00:30 73 16 73/57 (62) 94 04/06/20 00:15 74 16 93 04/06/20 00:00 97.8 74 16 94/64 (74) 94 04/06/20 00:00 65 04/06/20 00:00 Mechanical Ventilator 04/06/20 00:00 16 95/71 Mechanical Ventilator 70 04/05/20 23:45 90 22 93 04/05/20 23:37 82 04/05/20 23:30 77 20 138/91 (107) 97 04/05/20 23:15 76 16 96 04/05/20 23:00 75 15 105/74 (84) 94 04/05/20 23:00 16 138/91 Mechanical Ventilator 70 04/05/20 22:45 95 21 92 04/05/20 22:30 71 16 130/85 (100) 94 04/05/20 22:28 28 159/92 Mechanical Ventilator 70 04/05/20 22:15 78 21 94 04/05/20 22:00 97.8 83 20 150/93 (112) 94 04/05/20 22:00 70 04/05/20 21:45 75 17 94 04/05/20 21:30 76 17 127/87 (100) 94 04/05/20 21:15 92 19 92 04/05/20 21:00 88 24 144/97 (113) 94 04/05/20 20:45 93 04/05/20 20:30 92 18 148/92 (110) 92 04/05/20 20:16 153/118 04/05/20 20:15 85 18 95 04/05/20 20:00 Mechanical Ventilator 04/05/20 20:00 97.9 100 23 153/118 (130) 92 04/05/20 20:00 70 04/05/20 19:45 83 18 94 04/05/20 19:30 94 21 149/100 (116) 91 04/05/20 19:30 94 21 149/100 (116) 91 04/05/20 19:28 96 04/05/20 19:12 89 20 70 04/05/20 19:00 90 18 148/94 (112) 93 04/05/20 19:00 21 148/94 Mechanical Ventilator 70 04/05/20 18:30 91 20 143/100 (114) 92 General Appearance: no apparent distress, alert, on vent, patient on isolation Neck: supple Cardiovascular: normal rate Respiratory/Chest: lungs clear - anteriorly Abdomen: normal bowel sounds, non tender, soft Extremities: no swelling Intake and Output 04/05/20 04/06/20 19:00 07:00 Intake Total 1065 ml 423.063 ml Output Total 1345 ml 485 ml Balance -280 ml -61.937 ml Free Water 165 ml IV Total 380 ml 63.063 ml Tube Feeding 450 ml 360 ml Other 70 ml Output Urine Total 1345 ml 485 ml Stool Total 0 ml Laboratory Tests Test 04/06/20 04:07 04/06/20 06:23 White Blood Count 9.6 K/UL (4.8-10.8) Red Blood Count 4.30 M/UL (4.70-6.10) L Hemoglobin 12.0 G/DL (14.2-18.0) L Hematocrit 38.7 % (42.0-52.0) L Mean Corpuscular Volume 90 FL (80-99) Mean Corpuscular Hemoglobin 28.0 PG (27.0-31.0) Mean Corpuscular Hemoglobin Concent 31.1 G/DL (32.0-36.0) L Red Cell Distribution Width 16.1 % (11.6-14.8) H Platelet Count 222 K/UL (150-450) Mean Platelet Volume 6.9 FL (6.5-10.1) Neutrophils (%) (Auto) % (45.0-75.0) Lymphocytes (%) (Auto) % (20.0-45.0) Monocytes (%) (Auto) % (1.0-10.0) Eosinophils (%) (Auto) % (0.0-3.0) Basophils (%) (Auto) % (0.0-2.0) Differential Total Cells Counted 100 Neutrophils % (Manual) 85 % (45-75) H Lymphocytes % (Manual) 8 % (20-45) L Monocytes % (Manual) 1 % (1-10) Eosinophils % (Manual) 0 % (0-3) Basophils % (Manual) 0 % (0-2) Band Neutrophils 6 % (0-8) Platelet Estimate Adequate Platelet Morphology Normal Hypochromasia 1+ Anisocytosis 1+ Sodium Level 152 MMOL/L (136-145) H Potassium Level 4.2 MMOL/L (3.5-5.1) Chloride Level 113 MMOL/L (98-107) H Carbon Dioxide Level 35 MMOL/L (21-32) H Anion Gap 4 mmol/L (5-15) L Blood Urea Nitrogen 36 mg/dL (7-18) H Creatinine 0.5 MG/DL (0.55-1.30) L Estimat Glomerular Filtration Rate > 60 mL/min (>60) Glucose Level 170 MG/DL (74-106) H Calcium Level 8.7 MG/DL (8.5-10.1) Total Bilirubin 1.0 MG/DL (0.2-1.0) Aspartate Amino Transf (AST/SGOT) 78 U/L (15-37) H Alanine Aminotransferase (ALT/SGPT) 329 U/L (12-78) H Alkaline Phosphatase 171 U/L (46-116) H Total Protein 5.6 G/DL (6.4-8.2) L Albumin 2.3 G/DL (3.4-5.0) L Globulin 3.3 g/dL Albumin/Globulin Ratio 0.7 (1.0-2.7) L Triglycerides Level 358 MG/DL (30-150) H POC Whole Blood Glucose 161 MG/DL (74-106) H Objective pt in covid 19 isoaltion with acute infection Manan Awan MD Apr 06, 2020 18:42
[2020-04-06] MEDS: Bactrim-DS 1 tab ORAL SCH (19:02)
--- NOTE | 2020-04-06 19:20 | NUR ---
Assumed care of patient from PRIYANKA Brown. Patient had new orders for 12 lead EKG and amlodipine. Went into patients room and administered the medication and took the 12 lead ECG. ECG read normal sinus rhythm, normal ECG. Patient stable, awakes spontaneously and is watching TV in room. patient had 110cc residual in OGT, so decreased feedings to 20ml/hour. Will reassess residual at 2200 to determine if feeds should be paused or increased. Will continue to monitor.
[2020-04-06] MEDS: Dyna-Hex 2% Top Sol 2oz TOPIC SCH (20:07)
[2020-04-06] MEDS: Enoxaparin 80mg Inj SUBQ SCH (20:09)
[2020-04-06] MEDS: Miralax 17gm pkt ORAL SCH (20:10)
[2020-04-06] MEDS ORDERED: Versed 50mg/NS 100ml 100 ML IV PRN (20:23)
--- NOTE | 2020-04-06 21:14 | NUR ---
Could not pull 2100 Reglan for patient as the last dose was pulled and given late at 1902 by day RN. Charted that another nurse gave the med in the eMAR. Per pyxis, next dose is due at 0300 which is when I will be able to pull the medication. Patient remains stable and will continue to monitor.
--- NOTE | 2020-04-06 22:00 | NUR ---
Patient remains stable. Gave bath and changed linen. Patient reports no pain. Continued to wean propofol per orders so that transition to Versed can be done. Will continue to monitor patient.
[2020-04-06] MEDS: Midazolam HCl 50mg/10ml vial 50 MG in NS 90 ML IV PRN (23:11)
[2020-04-07] VITALS (35 sets, daily range): BP systolic 90–161; BP diastolic 49–87
--- NOTE | 2020-04-07 | NUR ---
Patient weaned from propofol and placed onto Versed gtt instead due to triglyceride level. Patient remains stable.Patient does have low urine output. Continues to have residuals, so TF have remained at 20ml/hr overnight. Free H2O flushes were given as well. Will continue to monitor.
--- NOTE | 2020-04-07 02:00 | NUR ---
Patient remains stable, will continue to monitor.
--- NOTE | 2020-04-07 04:00 | NUR ---
Patient remains stable, will continue to monitor.
[2020-04-07] MEDS: Metoclopramide 10mg/2ml Inj IVP SCH ×4 (04:01→20:57)
[2020-04-07 04:46] LABS: HEMATOCRIT 32.1 % (42.0-52.0); HEMOGLOBIN 9.9 G/DL (14.2-18.0); MEAN CORPUSCULAR VOLUME 91 FL (80-99); PLATELET COUNT 208 K/UL (150-450); RED BLOOD COUNT 3.53 M/UL (4.70-6.10); RED CELL DISTRIBUTION WIDTH 16.4 % (11.6-14.8); WHITE BLOOD COUNT 5.5 K/UL (4.8-10.8)
[2020-04-07 05:18] LABS: ALANINE AMINOTRANSFERASE 252 U/L (12-78); ALBUMIN 1.8 G/DL (3.4-5.0); ALBUMIN/GLOBULIN RATIO 0.6 (1.0-2.7); ALKALINE PHOSPHATASE 135 U/L (46-116); ANION GAP 4 mmol/L (5-15); ASPARTATE AMINO TRANSFERASE 55 U/L (15-37); BILIRUBIN,TOTAL 0.9 MG/DL (0.2-1.0); BLOOD UREA NITROGEN 33 mg/dL (7-18); CALCIUM 7.9 MG/DL (8.5-10.1); CARBON DIOXIDE 34 MMOL/L (21-32); CHLORIDE 113 MMOL/L (98-107); CREATININE 0.4 MG/DL (0.55-1.30); PHOSPHORUS 2.8 MG/DL (2.5-4.9); POTASSIUM 4.7 MMOL/L (3.5-5.1); SODIUM 151 MMOL/L (136-145)
[2020-04-07] MEDS: Solu-MEDROL 40mg Inj IVP SCH ×3 (05:39→21:01)
[2020-04-07] MEDS: NovoLOG Insulin Flexpen SUBQ SCH ×4 (06:00→18:00)
--- NOTE | 2020-04-07 06:00 | NUR ---
Suction canister, OGT piston irrigation and syringe changed out on patient this morning. patient remains stable. Decreased Versed on patient to 2mg/hr this hour due to excess sedation at the 5mg/hr. Difficult to rouse via voice, but does open eyes. All VSS at this time, will continue to monitor patient.
--- NOTE | 2020-04-07 07:00 | NUR ---
NURSE NOTES: Pt received from PRIYANKA Ji. Pt is sedated, opens eyes to voice and makes eye contact for approx 6 sec, RASS now noted -2; gag reflex intact, pt is able to localize pain and obey simple commands, PERRLA +. Pt is SR to residential monitor with 2+ radial and dorsalis pedis pulses. 2+ pitting edema noted to LUE and 1+ to left foot. Pt is orally intubated with an 8.0 ETT noted 25 cm at the lip with the following settings: AC 18 TV 750 FiO2 65 % Peep 8. lung finley noted diminished upon auscultation. Pt has an OGT running Glucerna 1.5 at 20 cc/hr. Abdomen is round, soft, and non-tender w/ active bowel sounds to all quadrants. rectal tube noted draining liquid-like, brown stool. F/C noted draining dark jeff urine. Skin alterations noted. Pt has a ALBERT PICC with dry and intact dressing running fentanyl gtt at 300 mcg/hr and versed gtt at 2 mg/hr. right wrist restraint noted - right raidal pulse palpable - skin to right wrist is intact without redness. Bed in lowest position, alarm on, side rails up x 3, call light within reach. Will continue to monitor.
--- NOTE | 2020-04-07 07:31 | NUR ---
CASE MANAGEMENT:REVIEW 04/07/20 SI: COVID PNA. UTI. RESP FAILURE~INTUBATED 98.6 66 18 100/58 100% ON VENT SUPPORT W/65% FIO2 H/H-9.9/32.1 NA+151 BUN+33 IS: FENTANYL GTT PROPOFOL GTT PRN LOVENOX SQ Q12 IV MEROPENEM Q8HRS IV PROTONIX Q12 IV MICAFUNGIN Q24 IV SOLUMEDROL Q8HRS BACTRIM NG Q24 IV REGLAN Q6HRS : ICU STATUS
--- NOTE | 2020-04-07 08:00 | NUR ---
NURSE NOTES: Pt repositioned. PO care provided. Afebrile with cooling blanket on monitor mode. No distress noted.
--- NOTE | 2020-04-07 08:37 | Pulmonology Progress Note ---
Subjective ROS Limited/Unobtainable: No Interval Events: Intubated 03/28/20 Constitutional: Denies: fever HEENT: Repors: no symptoms Respiratory: Reports: dry cough, shortness of breath Cardiovascular: Reports: no symptoms Gastrointestinal/Abdominal: Denies: nausea, vomiting, diarrhea Psychiatric: Reports: other - NA Skin: Denies: rash Musculoskeletal: Reports: other - NA Allergies: Coded Allergies: No Known Allergies (Unverified , 02/05/20) Objective Last 24 Hour Vital Signs Date Time Temp Pulse Resp B/P (MAP) Pulse Ox O2 Delivery O2 Flow Rate FiO2 04/07/20 06:30 18 Mechanical Ventilator 65 04/07/20 06:30 66 18 100 04/07/20 06:15 59 18 100 04/07/20 06:00 18 Mechanical Ventilator 65 04/07/20 06:00 18 110/52 Mechanical Ventilator 65 04/07/20 06:00 58 18 100/58 (72) 99 04/07/20 05:45 59 12 99 04/07/20 05:30 57 18 100/58 (72) 98 04/07/20 05:15 61 18 97 04/07/20 05:00 61 18 96/57 (70) 97 04/07/20 05:00 18 Mechanical Ventilator 65 04/07/20 05:00 18 94/55 Mechanical Ventilator 65 04/07/20 04:45 64 17 96 04/07/20 04:35 98.6 04/07/20 04:30 65 14 93/53 (66) 96 04/07/20 04:15 69 18 96 04/07/20 04:00 Mechanical Ventilator 04/07/20 04:00 16 Mechanical Ventilator 65 04/07/20 04:00 20 148/94 Mechanical Ventilator 65 04/07/20 04:00 98.6 65 22 96/53 (67) 96 04/07/20 04:00 65 04/07/20 03:45 66 18 96 04/07/20 03:30 67 31 97/55 (69) 96 04/07/20 03:15 68 18 96 04/07/20 03:14 74 18 65 04/07/20 03:02 68 04/07/20 03:00 69 33 95/55 (68) 96 04/07/20 03:00 18 Mechanical Ventilator 65 04/07/20 03:00 16 135/82 Mechanical Ventilator 65 04/07/20 02:45 71 18 96 04/07/20 02:30 70 18 100/57 (71) 96 04/07/20 02:15 67 18 96 04/07/20 02:00 20 Mechanical Ventilator 65 04/07/20 02:00 20 138/86 Mechanical Ventilator 65 04/07/20 02:00 97.2 67 18 99/55 (70) 96 04/07/20 01:45 66 18 96 04/07/20 01:29 109/72 (84) 04/07/20 01:15 65 18 96 04/07/20 01:00 19 Mechanical Ventilator 65 04/07/20 01:00 20 108/82 Mechanical Ventilator 65 04/07/20 01:00 66 20 93/55 (68) 97 04/07/20 00:45 67 18 97 04/07/20 00:30 19 145/92 Mechanical Ventilator 65 04/07/20 00:30 64 17 94/54 (67) 97 04/07/20 00:15 64 17 96 04/07/20 00:00 Mechanical Ventilator 04/07/20 00:00 97.5 66 18 90/49 (63) 96 04/07/20 00:00 20 Mechanical Ventilator 65 04/07/20 00:00 20 138/84 Mechanical Ventilator 65 04/07/20 00:00 20 138/84 Mechanical Ventilator 65 04/06/20 23:30 67 14 131/64 (86) 94 04/06/20 23:15 81 19 93 04/06/20 23:13 82 04/06/20 23:11 78 18 65 04/06/20 23:11 20 Mechanical Ventilator 65 04/06/20 23:11 19 158/83 Mechanical Ventilator 65 04/06/20 23:11 20 160/83 Mechanical Ventilator 65 04/06/20 23:00 87 21 160/83 (108) 95 04/06/20 22:45 77 18 96 04/06/20 22:30 97.3 77 18 166/84 (111) 98 04/06/20 22:15 70 18 98 04/06/20 22:00 20 141/74 Mechanical Ventilator 65 04/06/20 22:00 86 19 158/83 (108) 97 04/06/20 21:45 76 17 98 04/06/20 21:30 73 17 154/79 (104) 97 04/06/20 21:15 70 17 99 04/06/20 21:00 76 20 141/74 (96) 98 04/06/20 21:00 20 141/74 Mechanical Ventilator 65 04/06/20 21:00 20 141/74 Mechanical Ventilator 65 04/06/20 20:45 99 04/06/20 20:30 20 141/74 Mechanical Ventilator 65 04/06/20 20:30 80 18 127/92 (104) 99 04/06/20 20:15 72 18 98 04/06/20 20:08 69 116/63 04/06/20 20:00 Mechanical Ventilator 04/06/20 20:00 18 116/63 Mechanical Ventilator 65 04/06/20 20:00 18 116/63 Mechanical Ventilator 65 04/06/20 20:00 98.6 70 18 116/63 (80) 99 04/06/20 20:00 65 04/06/20 19:45 74 16 96 04/06/20 19:34 76 04/06/20 19:30 76 18 124/67 (86) 97 04/06/20 19:15 74 18 96 04/06/20 19:14 74 19 65 04/06/20 19:00 18 112/64 Mechanical Ventilator 65 04/06/20 19:00 18 112/64 Mechanical Ventilator 65 04/06/20 19:00 78 18 112/64 (80) 95 04/06/20 18:30 82 19 138/72 (94) 95 04/06/20 18:15 99.1 88 18 130/68 (88) 95 04/06/20 18:00 30 148/75 Mechanical Ventilator 65 04/06/20 18:00 30 148/75 Mechanical Ventilator 65 04/06/20 18:00 88 19 148/75 (99) 95 04/06/20 17:00 19 142/75 Mechanical Ventilator 65 04/06/20 17:00 19 142/75 Mechanical Ventilator 65 04/06/20 17:00 96 19 142/75 (97) 93 04/06/20 16:00 19 154/86 Mechanical Ventilator 65 04/06/20 16:00 19 154/86 Mechanical Ventilator 65 04/06/20 16:00 Mechanical Ventilator 04/06/20 16:00 65 04/06/20 16:00 106 04/06/20 16:00 101 20 154/86 (108) 91 04/06/20 15:12 114 23 65 04/06/20 15:00 104 20 151/89 (109) 92 04/06/20 15:00 21 158/92 Mechanical Ventilator 65 04/06/20 15:00 21 158/92 Mechanical Ventilator 65 04/06/20 14:30 108 18 162/84 (110) 91 04/06/20 14:00 109 20 166/91 (116) 87 04/06/20 14:00 19 166/91 Mechanical Ventilator 65 04/06/20 14:00 19 166/91 Mechanical Ventilator 65 04/06/20 13:59 23 165/86 Mechanical Ventilator 65 04/06/20 13:30 99 22 165/86 (112) 90 04/06/20 13:00 94 18 163/84 (110) 91 04/06/20 13:00 19 163/84 Mechanical Ventilator 65 04/06/20 12:30 89 18 157/78 (104) 89 04/06/20 12:19 26 133/68 Mechanical Ventilator 65 04/06/20 12:00 84 17 146/76 (99) 94 04/06/20 12:00 17 133/68 Mechanical Ventilator 65 04/06/20 12:00 17 133/68 Mechanical Ventilator 65 04/06/20 12:00 Mechanical Ventilator 04/06/20 12:00 65 04/06/20 12:00 94 04/06/20 11:30 100.0 66 15 132/68 (89) 95 04/06/20 11:17 88 18 65 04/06/20 11:00 67 16 132/68 (89) 94 04/06/20 11:00 16 98/55 Mechanical Ventilator 65 04/06/20 11:00 16 98/55 Mechanical Ventilator 65 04/06/20 10:30 62 16 99/54 (69) 93 04/06/20 10:00 16 96/55 Mechanical Ventilator 65 04/06/20 10:00 16 96/55 Mechanical Ventilator 65 04/06/20 10:00 67 16 96/55 (69) 94 04/06/20 09:30 64 16 119/62 (81) 94 04/06/20 09:00 62 16 87/62 (70) 94 04/06/20 09:00 16 78/55 Mechanical Ventilator 65 04/06/20 09:00 16 78/55 Mechanical Ventilator 65 Intake and Output 04/06/20 04/07/20 19:00 07:00 Intake Total 1377.53382 ml 1127.632 ml Output Total 580 ml 370 ml Balance 797.03542 ml 757.632 ml Free Water 300 ml 450 ml IV Total 637.55936 ml 457.632 ml Tube Feeding 440 ml 220 ml Output Urine Total 580 ml 370 ml Stool Total 0 ml 0 ml General Appearance: WD/WN, no acute distress HEENT: normocephalic, atraumatic Respiratory: chest wall non-tender Cardiovascular: normal rate, regular rhythm Abdomen: normal bowel sounds, soft, non tender, other - obese Laboratory Tests 04/06/20 19:21: POC Whole Blood Glucose 140H 04/07/20 02:37: White Blood Count 5.5, Red Blood Count 3.53L, Hemoglobin 9.9L, Hematocrit 32.1L, Mean Corpuscular Volume 91, Mean Corpuscular Hemoglobin 28.1, Mean Corpuscular Hemoglobin Concent 30.8L, Red Cell Distribution Width 16.4H, Platelet Count 208, Mean Platelet Volume 7.1, Neutrophils (%) (Auto) , Lymphocytes (%) (Auto) , Monocytes (%) (Auto) , Eosinophils (%) (Auto) , Basophils (%) (Auto) , Neutrophils % (Manual) [Pending], Lymphocytes % (Manual) [Pending], Platelet Estimate [Pending], Platelet Morphology [Pending], Sodium Level 151H, Potassium Level 4.7, Chloride Level 113H, Carbon Dioxide Level 34H, Anion Gap 4L, Blood Urea Nitrogen 33H, Creatinine 0.4L, Estimat Glomerular Filtration Rate > 60, Glucose Level 152H, Uric Acid 2.8, Calcium Level 7.9L, Phosphorus Level 2.8, Magnesium Level 2.5H, Total Bilirubin 0.9, Aspartate Amino Transf (AST/SGOT) 55H , Alanine Aminotransferase (ALT/SGPT) 252H, Alkaline Phosphatase 135H, Troponin I 0.042, C-Reactive Protein, Quantitative 3.1H, Pro-B-Type Natriuretic Peptide 554H, Total Protein 4.8L, Albumin 1.8L, Globulin 3.0, Albumin/Globulin Ratio 0.6L Current Medications Medications (Trade) Dose Ordered Sig/Dennis Route PRN Reason Start Time Stop Time Status Last Admin Dose Admin Acetaminophen (Tylenol) 650 mg Q4H PRN ORAL Mild Pain (Pain Scale 1-3) 03/09/20 12:00 04/08/20 11:59 04/07/20 04:02 Amlodipine Besylate (Norvasc) 2.5 mg DAILY NG 04/06/20 18:45 05/06/20 18:44 04/06/20 20:08 Bisacodyl (Dulcolax) 10 mg Q12H PRN RECTAL Constipation 03/18/20 16:45 06/16/20 16:44 Chlorhexidine Gluconate (Marlen-Hex 2%) 1 applic DAILY@2000 TOPIC 03/30/20 20:00 06/28/20 19:59 04/06/20 20:07 Dextrose (Dextrose 50%) 25 ml Q30M PRN IV Hypoglycemia 03/29/20 20:45 06/27/20 20:44 Dextrose (Dextrose 50%) 50 ml Q30M PRN IV Hypoglycemia 03/29/20 20:45 06/27/20 20:44 Enoxaparin Sodium (Lovenox) 80 mg EVERY 12 HOURS SUBQ 04/06/20 21:00 07/05/20 20:59 04/06/20 20:09 Fentanyl Citrate 250 ml @ 1 mls/hr Q24H IV 04/04/20 20:00 04/09/20 19:59 04/06/20 23:11 Hydralazine HCl (Apresoline) 10 mg Q4H PRN IV For High Blood Pressure 03/30/20 12:15 06/28/20 12:14 04/03/20 21:00 Insulin Aspart (NovoLOG) Q6HR SUBQ 03/30/20 00:00 06/28/20 00:00 04/07/20 00:00 Labetalol HCl (Normodyne) 10 mg Q4H PRN IV sbp greater tahtn 160 03/28/20 17:30 04/27/20 17:29 Meropenem 1 gm/ Sodium Chloride 100 ml @ 200 mls/hr Q8HR IVPB 04/02/20 22:00 04/08/20 21:59 04/07/20 05:40 Methylprednisolone Sodium Succinate (Solu-MEDROL) 40 mg EVERY 8 HOURS IVP 03/22/20 14:00 06/20/20 13:59 04/07/20 05:39 Metoclopramide HCl (Reglan) 10 mg Q6H IVP 03/30/20 15:00 04/29/20 14:59 04/07/20 04:01 Micafungin Sodium 100 mg/Sodium Chloride 100 ml @ 100 mls/hr Q24H IVPB 03/29/20 15:00 04/11/20 23:59 04/06/20 19:03 Midazolam HCl 50 mg/Sodium Chloride 100 ml @ 0 mls/hr Q24H PRN IV Agitation 04/06/20 20:45 04/08/20 20:44 04/06/20 23:11 Pantoprazole (Protonix) 40 mg EVERY 12 HOURS IVP 04/01/20 21:00 05/01/20 20:59 04/06/20 20:08 Polyethylene Glycol (Miralax) 17 gm BEDTIME ORAL 03/08/20 21:00 04/07/20 20:59 04/03/20 21:07 Propofol 100 ml @ 0 mls/hr Q12H PRN IV DIRECTED 04/05/20 21:42 04/07/20 21:41 04/06/20 20:30 Trimethoprim/ Sulfamethoxazole (Bactrim-DS) 1 tab Q24H ORAL 03/29/20 17:00 04/11/20 16:59 04/06/20 19:02 Vitamin D (Vitamin D) 5,000 unit DAILY ORAL 03/15/20 09:00 04/14/20 08:59 04/06/20 09:16 Assessment/Plan Assessment/Plan Assessment/Plan 1.COVID-19 pneumonia. - Completed specific therapies - On solumedrol 2. DVT ppx - on lovenox 3. Hypertension - no longer on meds - May need pressors 4. Leukocytosis; - ID following - On abx - Budding yeast on blood CS 5. Elevated LFT - positive Hep C; treated in the past with IF 6. Respiratory failure -Intubated 03/28/20 -Family aware - Prognosis grave - Increased Vt to 750; rate to 18 -On Fentanyl 7. Discussed with cardiology -No evidence for cardiac dysfunction or PE -tachycardic; will increase sedation 8. AMS -back on sedation - has apparent left arm paresis - Will consider CT brain when more stable S/p new PICC line On abx Slowly improving oxygenation Noted left upper extremity swelling. Has DVT; on full dose Lovenox Continue sedation, DC propofol given high triglycerides. Continue fentanyl and Versed. Begin weaning when oxygenation requirements are decreased. John Mata MD Apr 07, 2020 08:37
--- NOTE | 2020-04-07 08:56 | Nephrology Progress Note ---
Assessment/Plan Problem List: (1) Dehydration (2) Electrolyte imbalance (3) COVID-19 virus infection (4) Pneumonia (5) DMII (diabetes mellitus, type 2) (6) Protein malnutrition Assessment Azotemia, hypernatremia Hypoalbuminemia Staff Otilia bacteremia COVID-19 isolation, pneumonia, bilateral infiltrate Hypertension Diabetes mellitus History of smoking Plan April 07: Remains full code and on ventilator. Labs reviewed. Renal hollie eters and electrolytes stable. Continue per consultants. Blood pressure marginally improved. April 06: Full code. On ventilator. Blood pressure 80-90 systolic. IV Lasix discontinued. Free water through tube feeding ordered. Continue to monitor molina ctrolytes and serum sodium. Down on fentanyl as possible. Discussed with RN Kevin. Clonidine patch discontinued. April 05: Status quo. Remains full code. Remains intubated. Labs reviewed. Renal parameters stable. Serum sodium 150 unchanged. Continue per consultants. April 04: Remains intubated and on ventilator. Remains full code. Labs reviewed. Serum sodium 150 unchanged. Renal parameters stable. Continue per ID and pulmonary. April 03: Intubated. On ventilator. Full code. Labs reviewed. Serum sodium 150 unchanged. Continue to monitor renal parameters. Continue per pulmonary and ID. April 02: Full code. On ventilator. Discussed with RN. Serum sodium slightly higher. Will cut down on IV Lasix. Continue per consultants. Ana nue to monitor renal parameters and electrolytes. April 01: Full code. Remains on ventilator. Labs reviewed. Stable from re nal standpoint of view. Continue per consultants. March 31: Full code . Remains intubated on ventilator. Labs reviewed. Dudley khan appears toxic. Discussed with RN. Maintenance IV discontinued. Medication list reviewed. Blood pressure medication stopped due to low blood pressure. Levemir insulin stopped. Continue monitor blood sugar and sliding scale insulin. March 30: Full code. On ventilator. Labs reviewed. Clonidine patch dose increased. Lasix increased. 3% saline 1 time ordered. Continue to monitor electrolytes and renal parameters. March 29: Remains full code. On mechanical ventilation. On tube feeding. Wi ll DC TPN. Will start on maintenance IV fluid. Continue to monitor renal parameters. March 28: On BiPAP. Full code. On TPN. Labs reviewed. Discussed with pharmacy. Continue as is. Watch serum potassium. March 27: Remains on BiPAP. No chemistry panel done today. Full code. On TPN. Will check lab tomorrow. March 26: Remains on BiPAP. Remains on TPN. Labs reviewed. Electrolytes and chemistries within normal limits. Continue as is. March 25: Remains on TPN. Labs reviewed. Discussed with pharmacy. Change IV Protonix to p.o. Continue 3% saline infusion with Lasix. Patient full code. March 24: Continue to be on TPN. Labs are reviewed. Aim to collect electrolytes. Discussed with pharmacy. Continue current consultants. March 23: Continues to be on TPN. Labs reviewed. Electrolytes and chemistries all acceptable. Discussed with pharmacy. Continue current management. March 22: On TPN. Labs reviewed. Low sodium noted. 3% saline to be continued. Continue to monitor electrolytes. Discussed with pharmacy. March 21: On TPN. Labs reviewed. Continue 3% saline and Lasix for mild hyponatremia. Continue TPN as these. Discussed with pharmacy. March 20: Remains on TPN. Labs reviewed. Serum sodium higher on IV Lasix and 3% saline infusion. Continue TPN as is. Continue to monitor renal parameters and electrolytes. Discussed with Dr. Mata March 19: Remains on TPN. Labs reviewed. Serum sodium 128. Will give 3% saline with IV Lasix. Continue to monitor electrolytes. No change in TPN composition. Discussed with pharmacy. March 18: Remains on TPN. Labs reviewed. Discussed with pharmacist. Will give 3 doses of IV Lasix 20 mg every 8 hours. Continue to monitor serum sodium electrolytes uric acid. White blood cells down. Continue per consultants. March 17: On TPN. Labs reviewed. Discussed with pharmacist. Sodium content increase. Continue to monitor CMP. Patient continues to have leukocytosis. March 16: On TPN. Labs reviewed. Discussed with pharmacist. Appropriate changes made. Continue to monitor electrolytes. March 15: Remains on TPN. Labs reviewed. Discussed with pharmacist. Continue per current management. March 14: Remains on TPN. Labs reviewed, stable. Vitamin D level low, replacement ordered. Continue to monitor electrolytes and renal parameters. March 13: Patient remains on TPN. Discussed with pharmacist. TPN's sodium content adjusted. Labs reviewed. Continue to monitor electrolytes. Blood pressure remains stable. Continue per consultants. March 12: Patient on TPN. Labs reviewed. CPK remains elevated. Abnormal electrolytes and high blood sugar discussed with pharmacist and TPN adjusted. Continue to monitor labs. Oral Protonix added. Ibuprofen discontinued. Can continue to monitor electrolytes and chemistries. Levemir for high blood sugar added. March 11: Patient on TPN. Labs as of 11:15 AM is still pending. Continue per current treatment plan. Will check labs and adjust TPN as needed. Continue per consultants. March 10: Patient on TPN. Labs reviewed. Electrolytes overall stable. CPK is elevated. Will monitor electrolyte, CPK level, lipid panel. Continue per consultants. Discussed with pharmacist. Discussed with RN. Nutritional evaluation noted. Previously: D5W 100 cc an hour Monitor electrolytes renal parameters TPN and Intralipid ordered Will follow Continue per consultants Dietary consult requested Subjective ROS Limited/Unobtainable: Yes Objective Objective Last 24 Hour Vital Signs Date Time Temp Pulse Resp B/P (MAP) Pulse Ox O2 Delivery O2 Flow Rate FiO2 04/07/20 06:30 18 Mechanical Ventilator 65 04/07/20 06:30 66 18 100 04/07/20 06:15 59 18 100 04/07/20 06:00 18 Mechanical Ventilator 65 04/07/20 06:00 18 110/52 Mechanical Ventilator 65 04/07/20 06:00 58 18 100/58 (72) 99 04/07/20 05:45 59 12 99 04/07/20 05:30 57 18 100/58 (72) 98 04/07/20 05:15 61 18 97 04/07/20 05:00 61 18 96/57 (70) 97 04/07/20 05:00 18 Mechanical Ventilator 65 04/07/20 05:00 18 94/55 Mechanical Ventilator 65 04/07/20 04:45 64 17 96 04/07/20 04:35 98.6 04/07/20 04:30 65 14 93/53 (66) 96 04/07/20 04:15 69 18 96 04/07/20 04:00 Mechanical Ventilator 04/07/20 04:00 16 Mechanical Ventilator 65 04/07/20 04:00 20 148/94 Mechanical Ventilator 65 04/07/20 04:00 98.6 65 22 96/53 (67) 96 04/07/20 04:00 65 04/07/20 03:45 66 18 96 04/07/20 03:30 67 31 97/55 (69) 96 04/07/20 03:15 68 18 96 2/5/21 03:14 74 18 65 04/07/20 03:02 68 04/07/20 03:00 69 33 95/55 (68) 96 04/07/20 03:00 18 Mechanical Ventilator 65 04/07/20 03:00 16 135/82 Mechanical Ventilator 65 04/07/20 02:45 71 18 96 04/07/20 02:30 70 18 100/57 (71) 96 04/07/20 02:15 67 18 96 04/07/20 02:00 20 Mechanical Ventilator 65 04/07/20 02:00 20 138/86 Mechanical Ventilator 65 04/07/20 02:00 97.2 67 18 99/55 (70) 96 04/07/20 01:45 66 18 96 04/07/20 01:29 109/72 (84) 04/07/20 01:15 65 18 96 04/07/20 01:00 19 Mechanical Ventilator 65 04/07/20 01:00 20 108/82 Mechanical Ventilator 65 04/07/20 01:00 66 20 93/55 (68) 97 04/07/20 00:45 67 18 97 04/07/20 00:30 19 145/92 Mechanical Ventilator 65 04/07/20 00:30 64 17 94/54 (67) 97 04/07/20 00:15 64 17 96 04/07/20 00:00 Mechanical Ventilator 04/07/20 00:00 97.5 66 18 90/49 (63) 96 04/07/20 00:00 20 Mechanical Ventilator 65 04/07/20 00:00 20 138/84 Mechanical Ventilator 65 04/07/20 00:00 20 138/84 Mechanical Ventilator 65 04/06/20 23:30 67 14 131/64 (86) 94 04/06/20 23:15 81 19 93 04/06/20 23:13 82 04/06/20 23:11 78 18 65 04/06/20 23:11 20 Mechanical Ventilator 65 04/06/20 23:11 19 158/83 Mechanical Ventilator 65 04/06/20 23:11 20 160/83 Mechanical Ventilator 65 04/06/20 23:00 87 21 160/83 (108) 95 04/06/20 22:45 77 18 96 04/06/20 22:30 97.3 77 18 166/84 (111) 98 04/06/20 22:15 70 18 98 04/06/20 22:00 20 141/74 Mechanical Ventilator 65 04/06/20 22:00 86 19 158/83 (108) 97 04/06/20 21:45 76 17 98 04/06/20 21:30 73 17 154/79 (104) 97 04/06/20 21:15 70 17 99 04/06/20 21:00 76 20 141/74 (96) 98 04/06/20 21:00 20 141/74 Mechanical Ventilator 65 04/06/20 21:00 20 141/74 Mechanical Ventilator 65 04/06/20 20:45 99 04/06/20 20:30 20 141/74 Mechanical Ventilator 65 04/06/20 20:30 80 18 127/92 (104) 99 04/06/20 20:15 72 18 98 04/06/20 20:08 69 116/63 04/06/20 20:00 Mechanical Ventilator 04/06/20 20:00 18 116/63 Mechanical Ventilator 65 04/06/20 20:00 18 116/63 Mechanical Ventilator 65 04/06/20 20:00 98.6 70 18 116/63 (80) 99 04/06/20 20:00 65 04/06/20 19:45 74 16 96 04/06/20 19:34 76 04/06/20 19:30 76 18 124/67 (86) 97 04/06/20 19:15 74 18 96 04/06/20 19:14 74 19 65 04/06/20 19:00 18 112/64 Mechanical Ventilator 65 04/06/20 19:00 18 112/64 Mechanical Ventilator 65 04/06/20 19:00 78 18 112/64 (80) 95 04/06/20 18:30 82 19 138/72 (94) 95 04/06/20 18:15 99.1 88 18 130/68 (88) 95 04/06/20 18:00 30 148/75 Mechanical Ventilator 65 04/06/20 18:00 30 148/75 Mechanical Ventilator 65 04/06/20 18:00 88 19 148/75 (99) 95 04/06/20 17:00 19 142/75 Mechanical Ventilator 65 04/06/20 17:00 19 142/75 Mechanical Ventilator 65 04/06/20 17:00 96 19 142/75 (97) 93 04/06/20 16:00 19 154/86 Mechanical Ventilator 65 04/06/20 16:00 19 154/86 Mechanical Ventilator 65 04/06/20 16:00 Mechanical Ventilator 04/06/20 16:00 65 04/06/20 16:00 106 04/06/20 16:00 101 20 154/86 (108) 91 04/06/20 15:12 114 23 65 04/06/20 15:00 104 20 151/89 (109) 92 04/06/20 15:00 21 158/92 Mechanical Ventilator 65 04/06/20 15:00 21 158/92 Mechanical Ventilator 65 04/06/20 14:30 108 18 162/84 (110) 91 04/06/20 14:00 109 20 166/91 (116) 87 04/06/20 14:00 19 166/91 Mechanical Ventilator 65 04/06/20 14:00 19 166/91 Mechanical Ventilator 65 04/06/20 13:59 23 165/86 Mechanical Ventilator 65 04/06/20 13:30 99 22 165/86 (112) 90 04/06/20 13:00 94 18 163/84 (110) 91 04/06/20 13:00 19 163/84 Mechanical Ventilator 65 04/06/20 12:30 89 18 157/78 (104) 89 04/06/20 12:19 26 133/68 Mechanical Ventilator 65 04/06/20 12:00 84 17 146/76 (99) 94 04/06/20 12:00 17 133/68 Mechanical Ventilator 65 04/06/20 12:00 17 133/68 Mechanical Ventilator 65 04/06/20 12:00 Mechanical Ventilator 04/06/20 12:00 65 04/06/20 12:00 94 04/06/20 11:30 100.0 66 15 132/68 (89) 95 04/06/20 11:17 88 18 65 04/06/20 11:00 67 16 132/68 (89) 94 04/06/20 11:00 16 98/55 Mechanical Ventilator 65 04/06/20 11:00 16 98/55 Mechanical Ventilator 65 04/06/20 10:30 62 16 99/54 (69) 93 04/06/20 10:00 16 96/55 Mechanical Ventilator 65 04/06/20 10:00 16 96/55 Mechanical Ventilator 65 04/06/20 10:00 67 16 96/55 (69) 94 04/06/20 09:30 64 16 119/62 (81) 94 04/06/20 09:00 62 16 87/62 (70) 94 04/06/20 09:00 16 78/55 Mechanical Ventilator 65 04/06/20 09:00 16 78/55 Mechanical Ventilator 65 Intake and Output 04/06/20 04/07/20 19:00 07:00 Intake Total 1377.43072 ml 1127.632 ml Output Total 580 ml 370 ml Balance 797.60835 ml 757.632 ml Free Water 300 ml 450 ml IV Total 637.03877 ml 457.632 ml Tube Feeding 440 ml 220 ml Output Urine Total 580 ml 370 ml Stool Total 0 ml 0 ml Current Medications Medications (Trade) Dose Ordered Sig/Dennis Route PRN Reason Start Time Stop Time Status Last Admin Dose Admin Acetaminophen (Tylenol) 650 mg Q4H PRN ORAL Mild Pain (Pain Scale 1-3) 03/09/20 12:00 04/08/20 11:59 04/07/20 04:02 Amlodipine Besylate (Norvasc) 2.5 mg DAILY NG 04/06/20 18:45 05/06/20 18:44 04/06/20 20:08 Bisacodyl (Dulcolax) 10 mg Q12H PRN RECTAL Constipation 03/18/20 16:45 06/16/20 16:44 Chlorhexidine Gluconate (Marlen-Hex 2%) 1 applic DAILY@2000 TOPIC 03/30/20 20:00 06/28/20 19:59 04/06/20 20:07 Dextrose (Dextrose 50%) 25 ml Q30M PRN IV Hypoglycemia 03/29/20 20:45 06/27/20 20:44 Dextrose (Dextrose 50%) 50 ml Q30M PRN IV Hypoglycemia 03/29/20 20:45 06/27/20 20:44 Enoxaparin Sodium (Lovenox) 80 mg EVERY 12 HOURS SUBQ 04/06/20 21:00 07/05/20 20:59 04/06/20 20:09 Fentanyl Citrate 250 ml @ 1 mls/hr Q24H IV 04/04/20 20:00 04/09/20 19:59 04/06/20 23:11 Hydralazine HCl (Apresoline) 10 mg Q4H PRN IV For High Blood Pressure 03/30/20 12:15 06/28/20 12:14 04/03/20 21:00 Insulin Aspart (NovoLOG) Q6HR SUBQ 03/30/20 00:00 06/28/20 00:00 04/07/20 00:00 Labetalol HCl (Normodyne) 10 mg Q4H PRN IV sbp greater tahtn 160 03/28/20 17:30 04/27/20 17:29 Meropenem 1 gm/ Sodium Chloride 100 ml @ 200 mls/hr Q8HR IVPB 04/02/20 22:00 04/08/20 21:59 04/07/20 05:40 Methylprednisolone Sodium Succinate (Solu-MEDROL) 40 mg EVERY 8 HOURS IVP 03/22/20 14:00 06/20/20 13:59 04/07/20 05:39 Metoclopramide HCl (Reglan) 10 mg Q6H IVP 03/30/20 15:00 04/29/20 14:59 04/07/20 04:01 Micafungin Sodium 100 mg/Sodium Chloride 100 ml @ 100 mls/hr Q24H IVPB 03/29/20 15:00 04/11/20 23:59 04/06/20 19:03 Midazolam HCl 50 mg/Sodium Chloride 100 ml @ 0 mls/hr Q24H PRN IV Agitation 04/06/20 20:45 04/08/20 20:44 04/06/20 23:11 Pantoprazole (Protonix) 40 mg EVERY 12 HOURS IVP 04/01/20 21:00 05/01/20 20:59 04/06/20 20:08 Polyethylene Glycol (Miralax) 17 gm BEDTIME ORAL 03/08/20 21:00 04/07/20 20:59 04/03/20 21:07 Propofol 100 ml @ 0 mls/hr Q12H PRN IV DIRECTED 04/05/20 21:42 04/07/20 21:41 04/06/20 20:30 Trimethoprim/ Sulfamethoxazole (Bactrim-DS) 1 tab Q24H ORAL 03/29/20 17:00 04/11/20 16:59 04/06/20 19:02 Vitamin D (Vitamin D) 5,000 unit DAILY ORAL 03/15/20 09:00 04/14/20 08:59 04/06/20 09:16 Laboratory Tests 04/06/20 19:21: POC Whole Blood Glucose 140H 04/07/20 02:37: White Blood Count 5.5, Red Blood Count 3.53L, Hemoglobin 9.9L, Hematocrit 32.1L, Mean Corpuscular Volume 91, Mean Corpuscular Hemoglobin 28.1, Mean Corpuscular Hemoglobin Concent 30.8L, Red Cell Distribution Width 16.4H, Platelet Count 208, Mean Platelet Volume 7.1, Neutrophils (%) (Auto) , Lymphocytes (%) (Auto) , Monocytes (%) (Auto) , Eosinophils (%) (Auto) , Basophils (%) (Auto) , Neutrophils % (Manual) [Pending], Lymphocytes % (Manual) [Pending], Platelet Estimate [Pending], Platelet Morphology [Pending], Sodium Level 151H, Potassium Level 4.7, Chloride Level 113H, Carbon Dioxide Level 34H, Anion Gap 4L, Blood Urea Nitrogen 33H, Creatinine 0.4L, Estimat Glomerular Filtration Rate > 60, Glucose Level 152H, Uric Acid 2.8, Calcium Level 7.9L, Phosphorus Level 2.8, Magnesium Level 2.5H, Total Bilirubin 0.9, Aspartate Amino Transf (AST/SGOT) 55H , Alanine Aminotransferase (ALT/SGPT) 252H, Alkaline Phosphatase 135H, Troponin I 0.042, C-Reactive Protein, Quantitative 3.1H, Pro-B-Type Natriuretic Peptide 554H, Total Protein 4.8L, Albumin 1.8L, Globulin 3.0, Albumin/Globulin Ratio 0.6L Height (Feet): 5 Height (Inches): 10.00 Weight (Pounds): 240 General Appearance: no apparent distress EENT: other - Intubated on ventilator Cardiovascular: normal rate Respiratory/Chest: decreased breath sounds Abdomen: distended Rubin Cooper MD Apr 07, 2020 08:56
--- NOTE | 2020-04-07 09:00 | NUR ---
NURSE NOTES: Pt seen by Dr Cooper. All labs for today reviewed.
[2020-04-07] MEDS: Pantoprazole Inj IVP SCH ×2 (09:43→20:57)
[2020-04-07] MEDS: Enoxaparin 80mg Inj SUBQ SCH ×2 (09:45→20:58)
[2020-04-07] MEDS: Vitamin D 1000 units Tab GT SCH (09:53)
--- NOTE | 2020-04-07 10:00 | NUR ---
NURSE NOTES: Pt repositioned. No distress noted.
[2020-04-07] MEDS: fentaNYL 2500mcg/NS 250ml 250 ML IV SCH ×2 (10:01→18:59)
--- NOTE | 2020-04-07 12:00 | NUR ---
NURSE NOTES: Pt repositioned. PO care provided. Remains afebrile with cooling blanket on monitor mode. No distress noted.
[2020-04-07] MEDS: Midazolam HCl 50mg/10ml vial 50 MG in NS 90 ML IV PRN (13:00)
--- NOTE | 2020-04-07 14:00 | NUR ---
NURSE NOTES: Pt repositioned. No distress noted. Seen by Dr Quintero.
--- NOTE | 2020-04-07 14:16 | General Progress Note ---
Subjective ROS Limited/Unobtainable: No Allergies: Coded Allergies: No Known Allergies (Unverified , 02/05/20) Objective Last 24 Hour Vital Signs Date Time Temp Pulse Resp B/P (MAP) Pulse Ox O2 Delivery O2 Flow Rate FiO2 04/07/20 13:00 60 18 127/66 (86) 98 04/07/20 13:00 16 Mechanical Ventilator 65 04/07/20 12:00 61 18 125/64 (84) 98 04/07/20 11:00 87 23 156/76 (102) 96 04/07/20 10:55 83 19 65 04/07/20 10:55 83 19 95 Mechanical Ventilator 65 04/07/20 10:01 19 151/86 Mechanical Ventilator 65 04/07/20 10:00 100 20 151/86 (107) 92 04/07/20 09:44 84 144/69 04/07/20 09:00 90 18 144/64 (90) 93 04/07/20 08:00 98.1 73 19 137/64 (88) 95 04/07/20 07:00 82 19 65 04/07/20 07:00 63 18 93/53 (66) 96 04/07/20 06:30 18 Mechanical Ventilator 65 04/07/20 06:30 66 18 100 04/07/20 06:15 59 18 100 04/07/20 06:00 18 Mechanical Ventilator 65 04/07/20 06:00 18 110/52 Mechanical Ventilator 65 04/07/20 06:00 58 18 100/58 (72) 99 04/07/20 05:45 59 12 99 04/07/20 05:30 57 18 100/58 (72) 98 04/07/20 05:15 61 18 97 04/07/20 05:00 61 18 96/57 (70) 97 04/07/20 05:00 18 Mechanical Ventilator 65 04/07/20 05:00 18 94/55 Mechanical Ventilator 65 04/07/20 04:45 64 17 96 04/07/20 04:35 98.6 04/07/20 04:30 65 14 93/53 (66) 96 04/07/20 04:15 69 18 96 04/07/20 04:00 Mechanical Ventilator 04/07/20 04:00 16 Mechanical Ventilator 65 04/07/20 04:00 20 148/94 Mechanical Ventilator 65 04/07/20 04:00 98.6 65 22 96/53 (67) 96 04/07/20 04:00 65 04/07/20 03:45 66 18 96 04/07/20 03:30 67 31 97/55 (69) 96 04/07/20 03:15 68 18 96 04/07/20 03:14 74 18 65 04/07/20 03:02 68 04/07/20 03:00 69 33 95/55 (68) 96 04/07/20 03:00 18 Mechanical Ventilator 65 04/07/20 03:00 16 135/82 Mechanical Ventilator 65 04/07/20 02:45 71 18 96 04/07/20 02:30 70 18 100/57 (71) 96 04/07/20 02:15 67 18 96 04/07/20 02:00 20 Mechanical Ventilator 65 04/07/20 02:00 20 138/86 Mechanical Ventilator 65 04/07/20 02:00 97.2 67 18 99/55 (70) 96 04/07/20 01:45 66 18 96 04/07/20 01:29 109/72 (84) 04/07/20 01:15 65 18 96 04/07/20 01:00 19 Mechanical Ventilator 65 04/07/20 01:00 20 108/82 Mechanical Ventilator 65 04/07/20 01:00 66 20 93/55 (68) 97 04/07/20 00:45 67 18 97 04/07/20 00:30 19 145/92 Mechanical Ventilator 65 04/07/20 00:30 64 17 94/54 (67) 97 04/07/20 00:15 64 17 96 04/07/20 00:00 Mechanical Ventilator 04/07/20 00:00 97.5 66 18 90/49 (63) 96 04/07/20 00:00 20 Mechanical Ventilator 65 04/07/20 00:00 20 138/84 Mechanical Ventilator 65 04/07/20 00:00 20 138/84 Mechanical Ventilator 65 04/06/20 23:30 67 14 131/64 (86) 94 04/06/20 23:15 81 19 93 04/06/20 23:13 82 04/06/20 23:11 78 18 65 04/06/20 23:11 20 Mechanical Ventilator 65 04/06/20 23:11 19 158/83 Mechanical Ventilator 65 04/06/20 23:11 20 160/83 Mechanical Ventilator 65 04/06/20 23:00 87 21 160/83 (108) 95 04/06/20 22:45 77 18 96 04/06/20 22:30 97.3 77 18 166/84 (111) 98 04/06/20 22:15 70 18 98 04/06/20 22:00 20 141/74 Mechanical Ventilator 65 04/06/20 22:00 86 19 158/83 (108) 97 04/06/20 21:45 76 17 98 04/06/20 21:30 73 17 154/79 (104) 97 04/06/20 21:15 70 17 99 04/06/20 21:00 76 20 141/74 (96) 98 04/06/20 21:00 20 141/74 Mechanical Ventilator 65 04/06/20 21:00 20 141/74 Mechanical Ventilator 65 04/06/20 20:45 99 04/06/20 20:30 20 141/74 Mechanical Ventilator 65 04/06/20 20:30 80 18 127/92 (104) 99 04/06/20 20:15 72 18 98 04/06/20 20:08 69 116/63 04/06/20 20:00 Mechanical Ventilator 04/06/20 20:00 18 116/63 Mechanical Ventilator 65 04/06/20 20:00 18 116/63 Mechanical Ventilator 65 04/06/20 20:00 98.6 70 18 116/63 (80) 99 04/06/20 20:00 65 04/06/20 19:45 74 16 96 04/06/20 19:34 76 04/06/20 19:30 76 18 124/67 (86) 97 04/06/20 19:15 74 18 96 04/06/20 19:14 74 19 65 04/06/20 19:00 18 112/64 Mechanical Ventilator 65 04/06/20 19:00 18 112/64 Mechanical Ventilator 65 04/06/20 19:00 78 18 112/64 (80) 95 04/06/20 18:30 82 19 138/72 (94) 95 04/06/20 18:15 99.1 88 18 130/68 (88) 95 04/06/20 18:00 30 148/75 Mechanical Ventilator 65 04/06/20 18:00 30 148/75 Mechanical Ventilator 65 04/06/20 18:00 88 19 148/75 (99) 95 04/06/20 17:00 19 142/75 Mechanical Ventilator 65 04/06/20 17:00 19 142/75 Mechanical Ventilator 65 04/06/20 17:00 96 19 142/75 (97) 93 04/06/20 16:00 19 154/86 Mechanical Ventilator 65 04/06/20 16:00 19 154/86 Mechanical Ventilator 65 04/06/20 16:00 Mechanical Ventilator 04/06/20 16:00 65 04/06/20 16:00 106 04/06/20 16:00 101 20 154/86 (108) 91 04/06/20 15:12 114 23 65 04/06/20 15:00 104 20 151/89 (109) 92 04/06/20 15:00 21 158/92 Mechanical Ventilator 65 04/06/20 15:00 21 158/92 Mechanical Ventilator 65 04/06/20 14:30 108 18 162/84 (110) 91 Intake and Output 04/06/20 04/07/20 19:00 07:00 Intake Total 1377.85161 ml 1147.632 ml Output Total 580 ml 420 ml Balance 797.65519 ml 727.632 ml Free Water 300 ml 450 ml IV Total 637.91251 ml 457.632 ml Tube Feeding 440 ml 240 ml Output Urine Total 580 ml 420 ml Stool Total 0 ml 0 ml Laboratory Tests 04/06/20 19:21: POC Whole Blood Glucose 140H 04/07/20 02:37: White Blood Count 5.5, Red Blood Count 3.53L, Hemoglobin 9.9L, Hematocrit 32.1L, Mean Corpuscular Volume 91, Mean Corpuscular Hemoglobin 28.1, Mean Corpuscular Hemoglobin Concent 30.8L, Red Cell Distribution Width 16.4H, Platelet Count 208, Mean Platelet Volume 7.1, Neutrophils (%) (Auto) , Lymphocytes (%) (Auto) , Monocytes (%) (Auto) , Eosinophils (%) (Auto) , Basophils (%) (Auto) , Differential Total Cells Counted 100, Neutrophils % (Manual) 93H, Lymphocytes % (Manual) 6L, Monocytes % (Manual) 1, Eosinophils % (Manual) 0, Basophils % (Manual) 0, Band Neutrophils 0, Nucleated Red Blood Cells 1, Platelet Estimate Adequate, Platelet Morphology Normal, Polychromasia 1+, Hypochromasia 1+, Anisocytosis 1+, Sodium Level 151H, Potassium Level 4.7, Chloride Level 113H, Carbon Dioxide Level 34H, Anion Gap 4L, Blood Urea Nitrogen 33H, Creatinine 0.4L , Estimat Glomerular Filtration Rate > 60, Glucose Level 152H, Uric Acid 2.8, Calcium Level 7.9L, Phosphorus Level 2.8, Magnesium Level 2.5H, Total Bilirubin 0.9, Aspartate Amino Transf (AST/SGOT) 55H, Alanine Aminotransferase (ALT/SGPT) 252H, Alkaline Phosphatase 135H, Troponin I 0.042, C-Reactive Protein, Quantitative 3.1H, Pro-B-Type Natriuretic Peptide 554H, Total Protein 4.8L, Albumin 1.8L, Globulin 3.0, Albumin/Globulin Ratio 0.6L 04/07/20 10:37: Troponin I 0.033 04/07/20 10:53: Arterial Blood pH 7.439, Arterial Blood Partial Pressure CO2 53.6H, Arterial Blood Partial Pressure O2 63.1L, Arterial Blood HCO3 35.5H, Arterial Blood Oxygen Saturation 92.0L, Arterial Blood Base Excess 9.8*H, Shemar Test Positive Height (Feet): 5 Height (Inches): 10.00 Weight (Pounds): 240 General Appearance: no apparent distress EENT: normal ENT inspection Neck: supple Cardiovascular: normal rate Respiratory/Chest: decreased breath sounds Abdomen: normal bowel sounds, non tender, soft Extremities: non-tender Assessment/Plan Status: stable, progressing Assessment/Plan: hep c + but neg RNA intubated OGTF reglan 10 mg repeat labs fu LFTS will fu Da Quintero MD Apr 07, 2020 14:16
--- NOTE | 2020-04-07 14:29 | NUR ---
INSURANCE CLINCALS/REVIEW FAXED TO [employer] T: [phone] #1 F: [phone] AND ALFRED RN CARDIAC CATH:JACQUELINE JAMES [phone] F: [phone]
--- NOTE | 2020-04-07 16:00 | NUR ---
NURSE NOTES: Pt repositioned. PO care provided. Remains afebrile with cooling blanket on monitor mode. No distress noted.
--- NOTE | 2020-04-07 17:00 | NUR ---
NURSE NOTES: Pt seen by Dr Awan.
--- NOTE | 2020-04-07 17:08 | Cardiology Progress Note ---
Assessment/Plan Assessment/Plan Acute covid 19 pneumonia hypoxemia infiltrate bilat bacteremia hypernatremia / hyponatremia mild abn lfts tachy post intubation fever fungemia dvt upper ext ekg show some st chanbged but no present on repeat ekg all trop last ntie and today neg yest he had no sx to suggest acs on my personal questioning will repeat echo tomorrow to see if any wall motion abn or effusion he is nwo on 65 % and looks comfortable with sat on 95% !! hr is normal bp seems better is on prn iv hydralazine and labetolol now back on tts patch and on norvasc hypoxemia unlikely cardiac related tube feeding echo reviewed last on 03/28 still shows normal lv function no valve pathology will repat in am 04/06 cxr reviwed worsening ro right sided infiltrate wbc improved tele reviewed sinus remains critical d/w rn diuretic dcd due to hypernatreamia now is on full dose anticoag due to dvt ue covid pcr negative , however considering that it took 3 tests to finally initially identify his covid infection i am not sure if we can trust Subjective ROS Limited/Unobtainable: Yes Subjective per rn Pt received from PRIYANKA Ji. Pt is sedated, opens eyes to voice and makes eye contact for approx 6 sec, RASS now noted -2; gag reflex intact, pt is able to localize pain and obey simple commands, Objective Last 24 Hour Vital Signs Date Time Temp Pulse Resp B/P (MAP) Pulse Ox O2 Delivery O2 Flow Rate FiO2 04/07/20 16:00 65 04/07/20 16:00 98.2 75 11 138/74 (95) 95 04/07/20 16:00 18 Mechanical Ventilator 65 04/07/20 16:00 18 151/77 Mechanical Ventilator 65 04/07/20 16:00 69 04/07/20 16:00 Mechanical Ventilator 04/07/20 15:00 62 12 106/60 (75) 94 04/07/20 15:00 18 Mechanical Ventilator 65 04/07/20 15:00 18 110/61 Mechanical Ventilator 65 04/07/20 14:00 18 Mechanical Ventilator 65 04/07/20 14:00 18 117/65 Mechanical Ventilator 65 04/07/20 14:00 64 0 113/64 (80) 96 04/07/20 13:00 60 18 127/66 (86) 98 04/07/20 13:00 18 Mechanical Ventilator 65 04/07/20 13:00 18 130/71 Mechanical Ventilator 65 04/07/20 12:00 62 04/07/20 12:00 Mechanical Ventilator 04/07/20 12:00 18 Mechanical Ventilator 65 04/07/20 12:00 18 130/75 Mechanical Ventilator 65 04/07/20 12:00 65 04/07/20 12:00 98.5 61 18 125/64 (84) 98 04/07/20 11:00 87 23 156/76 (102) 96 04/07/20 11:00 18 Mechanical Ventilator 65 04/07/20 11:00 18 113/62 Mechanical Ventilator 65 04/07/20 10:55 83 19 65 04/07/20 10:55 83 19 95 Mechanical Ventilator 65 04/07/20 10:01 19 151/86 Mechanical Ventilator 65 04/07/20 10:00 18 Mechanical Ventilator 65 04/07/20 10:00 18 154/82 Mechanical Ventilator 65 04/07/20 10:00 100 20 151/86 (107) 92 04/07/20 09:44 84 144/69 04/07/20 09:00 90 18 144/64 (90) 93 04/07/20 09:00 18 Mechanical Ventilator 65 04/07/20 09:00 18 144/69 Mechanical Ventilator 65 04/07/20 08:00 65 04/07/20 08:00 18 Mechanical Ventilator 65 04/07/20 08:00 18 149/71 Mechanical Ventilator 65 04/07/20 08:00 Mechanical Ventilator 04/07/20 08:00 64 04/07/20 08:00 98.1 73 19 137/64 (88) 95 04/07/20 07:00 82 19 65 04/07/20 07:00 63 18 93/53 (66) 96 04/07/20 07:00 18 Mechanical Ventilator 65 04/07/20 07:00 18 97/53 Mechanical Ventilator 65 04/07/20 06:30 18 Mechanical Ventilator 65 04/07/20 06:30 66 18 100 04/07/20 06:15 59 18 100 04/07/20 06:00 18 Mechanical Ventilator 65 04/07/20 06:00 18 110/52 Mechanical Ventilator 65 04/07/20 06:00 58 18 100/58 (72) 99 04/07/20 05:45 59 12 99 2/5/21 05:30 57 18 100/58 (72) 98 04/07/20 05:15 61 18 97 04/07/20 05:00 61 18 96/57 (70) 97 04/07/20 05:00 18 Mechanical Ventilator 65 04/07/20 05:00 18 94/55 Mechanical Ventilator 65 04/07/20 04:45 64 17 96 04/07/20 04:35 98.6 04/07/20 04:30 65 14 93/53 (66) 96 04/07/20 04:15 69 18 96 04/07/20 04:00 Mechanical Ventilator 04/07/20 04:00 16 Mechanical Ventilator 65 04/07/20 04:00 20 148/94 Mechanical Ventilator 65 04/07/20 04:00 98.6 65 22 96/53 (67) 96 04/07/20 04:00 65 04/07/20 03:45 66 18 96 04/07/20 03:30 67 31 97/55 (69) 96 04/07/20 03:15 68 18 96 04/07/20 03:14 74 18 65 04/07/20 03:02 68 04/07/20 03:00 69 33 95/55 (68) 96 04/07/20 03:00 18 Mechanical Ventilator 65 04/07/20 03:00 16 135/82 Mechanical Ventilator 65 04/07/20 02:45 71 18 96 04/07/20 02:30 70 18 100/57 (71) 96 04/07/20 02:15 67 18 96 04/07/20 02:00 20 Mechanical Ventilator 65 04/07/20 02:00 20 138/86 Mechanical Ventilator 65 04/07/20 02:00 97.2 67 18 99/55 (70) 96 04/07/20 01:45 66 18 96 04/07/20 01:29 109/72 (84) 04/07/20 01:15 65 18 96 04/07/20 01:00 19 Mechanical Ventilator 65 04/07/20 01:00 20 108/82 Mechanical Ventilator 65 04/07/20 01:00 66 20 93/55 (68) 97 04/07/20 00:45 67 18 97 04/07/20 00:30 19 145/92 Mechanical Ventilator 65 04/07/20 00:30 64 17 94/54 (67) 97 2/5/21 00:15 64 17 96 04/07/20 00:00 Mechanical Ventilator 04/07/20 00:00 97.5 66 18 90/49 (63) 96 04/07/20 00:00 20 Mechanical Ventilator 65 04/07/20 00:00 20 138/84 Mechanical Ventilator 65 04/07/20 00:00 20 138/84 Mechanical Ventilator 65 04/06/20 23:30 67 14 131/64 (86) 94 04/06/20 23:15 81 19 93 04/06/20 23:13 82 04/06/20 23:11 78 18 65 04/06/20 23:11 20 Mechanical Ventilator 65 04/06/20 23:11 19 158/83 Mechanical Ventilator 65 04/06/20 23:11 20 160/83 Mechanical Ventilator 65 04/06/20 23:00 87 21 160/83 (108) 95 04/06/20 22:45 77 18 96 04/06/20 22:30 97.3 77 18 166/84 (111) 98 04/06/20 22:15 70 18 98 04/06/20 22:00 20 141/74 Mechanical Ventilator 65 04/06/20 22:00 86 19 158/83 (108) 97 04/06/20 21:45 76 17 98 04/06/20 21:30 73 17 154/79 (104) 97 04/06/20 21:15 70 17 99 04/06/20 21:00 76 20 141/74 (96) 98 04/06/20 21:00 20 141/74 Mechanical Ventilator 65 04/06/20 21:00 20 141/74 Mechanical Ventilator 65 04/06/20 20:45 99 04/06/20 20:30 20 141/74 Mechanical Ventilator 65 04/06/20 20:30 80 18 127/92 (104) 99 04/06/20 20:15 72 18 98 04/06/20 20:08 69 116/63 04/06/20 20:00 Mechanical Ventilator 04/06/20 20:00 18 116/63 Mechanical Ventilator 65 04/06/20 20:00 18 116/63 Mechanical Ventilator 65 04/06/20 20:00 98.6 70 18 116/63 (80) 99 04/06/20 20:00 65 04/06/20 19:45 74 16 96 04/06/20 19:34 76 04/06/20 19:30 76 18 124/67 (86) 97 04/06/20 19:15 74 18 96 04/06/20 19:14 74 19 65 04/06/20 19:00 18 112/64 Mechanical Ventilator 65 04/06/20 19:00 18 112/64 Mechanical Ventilator 65 04/06/20 19:00 78 18 112/64 (80) 95 04/06/20 18:30 82 19 138/72 (94) 95 04/06/20 18:15 99.1 88 18 130/68 (88) 95 04/06/20 18:00 30 148/75 Mechanical Ventilator 65 04/06/20 18:00 30 148/75 Mechanical Ventilator 65 04/06/20 18:00 88 19 148/75 (99) 95 General Appearance: no apparent distress, on vent, patient on isolation, other - looks comfortabel from out side the room Intake and Output 04/06/20 04/07/20 19:00 07:00 Intake Total 1377.16193 ml 1179.632 ml Output Total 580 ml 420 ml Balance 797.41846 ml 759.632 ml Free Water 300 ml 450 ml IV Total 637.85618 ml 489.632 ml Tube Feeding 440 ml 240 ml Output Urine Total 580 ml 420 ml Stool Total 0 ml 0 ml Laboratory Tests Test 04/06/20 19:21 04/07/20 02:37 04/07/20 10:37 04/07/20 10:53 POC Whole Blood Glucose 140 MG/DL (74-106) H White Blood Count 5.5 K/UL (4.8-10.8) Red Blood Count 3.53 M/UL (4.70-6.10) L Hemoglobin 9.9 G/DL (14.2-18.0) L Hematocrit 32.1 % (42.0-52.0) L Mean Corpuscular Volume 91 FL (80-99) Mean Corpuscular Hemoglobin 28.1 PG (27.0-31.0) Mean Corpuscular Hemoglobin Concent 30.8 G/DL (32.0-36.0) L Red Cell Distribution Width 16.4 % (11.6-14.8) H Platelet Count 208 K/UL (150-450) Mean Platelet Volume 7.1 FL (6.5-10.1) Neutrophils (%) (Auto) % (45.0-75.0) Lymphocytes (%) (Auto) % (20.0-45.0) Monocytes (%) (Auto) % (1.0-10.0) Eosinophils (%) (Auto) % (0.0-3.0) Basophils (%) (Auto) % (0.0-2.0) Differential Total Cells Counted 100 Neutrophils % (Manual) 93 % (45-75) H Lymphocytes % (Manual) 6 % (20-45) L Monocytes % (Manual) 1 % (1-10) Eosinophils % (Manual) 0 % (0-3) Basophils % (Manual) 0 % (0-2) Band Neutrophils 0 % (0-8) Nucleated Red Blood Cells 1 /100 WBC Platelet Estimate Adequate Platelet Morphology Normal Polychromasia 1+ Hypochromasia 1+ Anisocytosis 1+ Sodium Level 151 MMOL/L (136-145) H Potassium Level 4.7 MMOL/L (3.5-5.1) Chloride Level 113 MMOL/L (98-107) H Carbon Dioxide Level 34 MMOL/L (21-32) H Anion Gap 4 mmol/L (5-15) L Blood Urea Nitrogen 33 mg/dL (7-18) H Creatinine 0.4 MG/DL (0.55-1.30) L Estimat Glomerular Filtration Rate > 60 mL/min (>60) Glucose Level 152 MG/DL (74-106) H Uric Acid 2.8 MG/DL (2.6-7.2) Calcium Level 7.9 MG/DL (8.5-10.1) L Phosphorus Level 2.8 MG/DL (2.5-4.9) Magnesium Level 2.5 MG/DL (1.8-2.4) H Total Bilirubin 0.9 MG/DL (0.2-1.0) Aspartate Amino Transf (AST/SGOT) 55 U/L (15-37) H Alanine Aminotransferase (ALT/SGPT) 252 U/L (12-78) H Alkaline Phosphatase 135 U/L (46-116) H Troponin I 0.042 ng/mL (0.000-0.056) 0.033 ng/mL (0.000-0.056) C-Reactive Protein, Quantitative 3.1 mg/dL (0.00-0.90) H Pro-B-Type Natriuretic Peptide 554 pg/mL (0-125) H Total Protein 4.8 G/DL (6.4-8.2) L Albumin 1.8 G/DL (3.4-5.0) L Globulin 3.0 g/dL Albumin/Globulin Ratio 0.6 (1.0-2.7) L Arterial Blood pH 7.439 (7.350-7.450) Arterial Blood Partial Pressure CO2 53.6 mmHg (35.0-45.0) H Arterial Blood Partial Pressure O2 63.1 mmHg (75.0-100.0) L Arterial Blood HCO3 35.5 mmol/L (22.0-26.0) H Arterial Blood Oxygen Saturation 92.0 % (95-100) L Arterial Blood Base Excess 9.8 (-2-2) *H Shemar Test Positive Objective pt in covid 19 isoaltion with acute infection Manan Awan MD Apr 07, 2020 17:08
[2020-04-07] MEDS: Bactrim-DS 1 tab ORAL SCH (17:48)
--- NOTE | 2020-04-07 18:00 | NUR ---
NURSE NOTES: Pt repositioned. No distress noted.
--- NOTE | 2020-04-07 19:02 | NUR ---
NURSE HAND-OFF REPORT: Latest Vital Signs: Temperature 98.2 , Pulse 72 , B/P 130 /71 , Respiratory Rate 18 , O2 SAT 96 , Mechanical Ventilator, FiO2 65 % . Vital Sign Comment: stable EKG Rhythm: Sinus Rhythm Rhythm change?: N MD Notified?: seen by Dr Ibrahima lopez MD Response: n/a Latest Hassan Fall Score: 35 Fall Risk: Medium Risk Safety Measures: Call light Within Reach, Bed Alarm Zone 3, Side Rails Side Rails x3, Bed position Low and Locked. Fall Precautions: Yellow Socks Yellow Gown Door Sign Patient Fall Education Report given to PRIYANKA Ji.
--- NOTE | 2020-04-07 19:15 | NUR ---
Received report from PRIYANKA Portillo. Patient stable, will continue to monitor.
[2020-04-07] MEDS ORDERED: NS 275ml ONE (19:41)
[2020-04-07] MEDS ORDERED: Sterile Water Irrig 1000ml IRRIG ONE (19:41)
--- NOTE | 2020-04-07 20:00 | NUR ---
Patient assessment complete, see charting fro details. patient oral care completed, repositioned, and is appropriate and calm when awakened. Patient follows all commands. Will continue to monitor.
[2020-04-07] MEDS: Dyna-Hex 2% Top Sol 2oz TOPIC SCH (20:57)
[2020-04-07] MEDS: Miralax 17gm pkt ORAL SCH (20:59)
--- NOTE | 2020-04-07 22:00 | NUR ---
Oral care completed and position change done on patient. Minimal residuals. VSS, will continue to monitor.
[2020-04-08] VITALS (37 sets, daily range): BP systolic 85–215; BP diastolic 45–109
--- NOTE | 2020-04-08 | NUR ---
Patient remains stable, oral care and repositioning complete. Will continue to monitor.
--- NOTE | 2020-04-08 01:30 | NUR ---
Patient bradycardic to low 50's. Noticed that clonidine patch on patients chest but order was discontinued on 04/06@0936am but not removed from patient. This RN removed the patch from the right chest and discarded into medical waste. Patient awakened and asked if he has any symptoms of bradycardia to which he denied. Patient easily awakens and follows all commands so sedation levels left in place. Notified kiln charger, Kristin, that the clonidine patch was not removed as ordered and likely contributing, in part, to the bradycardia. Patient is not sustained bradycardia, but will dip into the low 50's (52), heart rate range: 52-70's. Will continue to monitor patient.
[2020-04-08] MEDS: Metoclopramide 10mg/2ml Inj IVP SCH ×4 (03:00→19:35)
--- NOTE | 2020-04-08 04:00 | NUR ---
Patient remains stable. Sinus rhythm predominantly. Improved from earlier in shift. Patient is appropriate and follows commands upon waking. Afebrile. Oral care completed and repositioned patient. Will continue to monitor.
[2020-04-08] MEDS: Solu-MEDROL 40mg Inj IVP SCH ×3 (05:21→19:34)
[2020-04-08] MEDS: fentaNYL 2500mcg/NS 250ml 250 ML IV SCH ×3 (05:22→23:29)
--- NOTE | 2020-04-08 05:45 | NUR ---
Patient dropping sat, went into room and found that fentanyl gtt had been beeping. Due to this, patient was not at a AUDREY of 02 and was fighting the vent. Had to increase sedation for a short time to get patient back to a AUDREY -2 so that he would stop fighting the vent. Due to sustained sats 86-88% had to increase FiO2 to 70%. Notified PHOTOENGRAVING RETOUCHER of this change and that I would attempt to decrease back to FiO2 of 65% prior to end of shift. Oral care completed, patient repositioned and suctioned. Will monitor for ability to decrease FiO2.
[2020-04-08 05:46] LABS: HEMATOCRIT 35.1 % (42.0-52.0); MEAN CORPUSCULAR VOLUME 91 FL (80-99); PLATELET COUNT 216 K/UL (150-450); RED BLOOD COUNT 3.84 M/UL (4.70-6.10); WHITE BLOOD COUNT 5.9 K/UL (4.8-10.8)
[2020-04-08] MEDS: NovoLOG Insulin Flexpen SUBQ SCH ×4 (05:57→18:00)
[2020-04-08 06:26] LABS: ALANINE AMINOTRANSFERASE 271 U/L (12-78); ALBUMIN/GLOBULIN RATIO 0.6 (1.0-2.7); ALKALINE PHOSPHATASE 156 U/L (46-116); ANION GAP 0 mmol/L (5-15); ASPARTATE AMINO TRANSFERASE 78 U/L (15-37); BILIRUBIN,TOTAL 1.2 MG/DL (0.2-1.0); BLOOD UREA NITROGEN 29 mg/dL (7-18); CALCIUM 8.3 MG/DL (8.5-10.1); CARBON DIOXIDE 35 MMOL/L (21-32); CHLORIDE 113 MMOL/L (98-107); CREATININE 0.4 MG/DL (0.55-1.30); PHOSPHORUS 2.7 MG/DL (2.5-4.9); POTASSIUM 4.5 MMOL/L (3.5-5.1); SODIUM 148 MMOL/L (136-145)
[2020-04-08 06:30] LABS: BILIRUBIN,DIRECT 0.7 MG/DL (0.0-0.3)
--- NOTE | 2020-04-08 06:39 | NUR ---
Decreased FiO2 back to 65%. Will continue to monitor.
--- NOTE | 2020-04-08 07:16 | NUR ---
NURSE NOTES: Received report from Margy MATHEW.
--- NOTE | 2020-04-08 07:17 | NUR ---
Report given to PRIYANKA Bunch and handed care of patient over to her.
[2020-04-08] MEDS: Pantoprazole Inj IVP SCH ×2 (08:38→19:34)
[2020-04-08] MEDS: Vitamin D 1000 units Tab GT SCH (08:39)
--- NOTE | 2020-04-08 08:40 | NUR ---
NURSE NOTES: Pt. in bed, awake, a/o x 4. No sign of distress. ETT in placed with vent setting AC18/VT750/Fi O2 of 65%/P8. No grimacing noted. HOB elevated at all times. On OGT in placed running Glucerna 1.5 at 50cc/hr. No n/v noted. Tolerating well. Rectal tube in placed patent/intact draining brown liquid stool. F/C in placed patent/intact draining jeff colored urine. PICC line at right upper arm in placed patent/intact. Bed in low position, locked. Call light within reach. Will cont. to monitor.
[2020-04-08] MEDS: Enoxaparin 80mg Inj SUBQ SCH ×2 (08:42→19:35)
--- NOTE | 2020-04-08 08:59 | General Progress Note ---
Subjective ROS Limited/Unobtainable: No Allergies: Coded Allergies: No Known Allergies (Unverified , 02/05/20) Objective Last 24 Hour Vital Signs Date Time Temp Pulse Resp B/P (MAP) Pulse Ox O2 Delivery O2 Flow Rate FiO2 04/08/20 08:40 91 155/82 04/08/20 07:00 84 14 135/72 (93) 95 04/08/20 06:30 82 18 97 04/08/20 06:15 87 24 96 04/08/20 06:00 98.4 93 17 108/60 (76) 94 04/08/20 06:00 24 Mechanical Ventilator 70 04/08/20 06:00 18 138/86 Mechanical Ventilator 70 04/08/20 05:45 100 20 86 04/08/20 05:30 119 23 135/80 (98) 89 04/08/20 05:22 16 134/92 Mechanical Ventilator 65 04/08/20 05:15 99 23 92 04/08/20 05:06 82 18 65 04/08/20 05:00 85 16 127/59 (81) 90 04/08/20 05:00 18 Mechanical Ventilator 65 04/08/20 05:00 18 137/84 Mechanical Ventilator 65 04/08/20 04:49 18 Mechanical Ventilator 65 04/08/20 04:45 91 16 90 04/08/20 04:30 98 14 130/56 (80) 90 04/08/20 04:15 83 14 91 04/08/20 04:00 Mechanical Ventilator 04/08/20 04:00 65 04/08/20 04:00 16 Mechanical Ventilator 65 04/08/20 04:00 16 122/58 Mechanical Ventilator 65 04/08/20 04:00 97.6 86 9 122/58 (79) 87 04/08/20 03:45 80 0 89 04/08/20 03:30 85 18 114/45 (68) 92 04/08/20 03:23 76 18 65 04/08/20 03:21 86 04/08/20 03:15 85 18 94 04/08/20 03:00 86 19 124/54 (77) 93 04/08/20 03:00 16 Mechanical Ventilator 65 04/08/20 03:00 18 124/54 Mechanical Ventilator 65 04/08/20 02:45 72 18 97 04/08/20 02:30 86 20 151/68 (95) 94 04/08/20 02:15 56 15 99 04/08/20 02:00 55 16 130/72 (91) 99 04/08/20 02:00 16 Mechanical Ventilator 65 04/08/20 02:00 18 130/72 Mechanical Ventilator 65 04/08/20 01:45 53 16 99 04/08/20 01:30 54 17 113/64 (80) 98 04/08/20 01:15 54 18 98 04/08/20 01:13 59 18 65 04/08/20 01:00 57 16 109/62 (78) 97 04/08/20 01:00 16 Mechanical Ventilator 65 04/08/20 01:00 16 100/62 Mechanical Ventilator 65 04/08/20 00:45 59 17 97 04/08/20 00:30 61 18 112/67 (82) 97 04/08/20 00:15 62 18 96 04/08/20 00:00 98.8 63 16 111/62 (78) 96 04/08/20 00:00 16 Mechanical Ventilator 65 04/08/20 00:00 16 105/65 Mechanical Ventilator 65 04/08/20 00:00 65 04/08/20 00:00 Mechanical Ventilator 04/07/20 23:45 61 18 96 04/07/20 23:30 69 18 65 04/07/20 23:30 62 17 116/65 (82) 95 04/07/20 23:15 65 16 96 04/07/20 23:09 64 04/07/20 23:00 16 Mechanical Ventilator 65 04/07/20 23:00 16 102/62 Mechanical Ventilator 65 04/07/20 23:00 64 16 120/67 (84) 96 04/07/20 22:45 65 16 96 04/07/20 22:30 62 16 115/67 (83) 96 04/07/20 22:15 65 16 96 04/07/20 22:00 63 16 119/63 (81) 96 04/07/20 22:00 16 Mechanical Ventilator 65 04/07/20 22:00 16 119/63 Mechanical Ventilator 65 04/07/20 21:45 64 0 97 04/07/20 21:30 62 14 136/76 (96) 98 04/07/20 21:15 59 0 96 04/07/20 21:02 18 Mechanical Ventilator 65 04/07/20 21:02 18 108/62 Mechanical Ventilator 65 04/07/20 21:00 58 0 105/61 (76) 97 04/07/20 20:45 61 0 97 04/07/20 20:30 60 0 115/68 (84) 98 04/07/20 20:29 61 18 65 04/07/20 20:15 64 0 98 04/07/20 20:00 65 04/07/20 20:00 98.6 74 13 142/75 (97) 96 04/07/20 20:00 Mechanical Ventilator 04/07/20 20:00 18 Mechanical Ventilator 65 04/07/20 20:00 18 Mechanical Ventilator 65 04/07/20 20:00 18 102/56 Mechanical Ventilator 65 04/07/20 20:00 18 108/60 Mechanical Ventilator 65 04/07/20 19:45 70 12 98 04/07/20 19:44 65 04/07/20 19:30 79 20 161/87 (111) 98 04/07/20 19:15 86 22 98 04/07/20 19:05 66 19 65 04/07/20 19:00 81 20 150/82 (104) 99 04/07/20 19:00 18 Mechanical Ventilator 65 04/07/20 18:59 18 130/71 Mechanical Ventilator 65 04/07/20 18:00 72 14 138/79 (98) 96 04/07/20 18:00 18 Mechanical Ventilator 65 04/07/20 18:00 18 138/79 Mechanical Ventilator 65 04/07/20 17:00 77 18 126/71 (89) 95 04/07/20 17:00 18 Mechanical Ventilator 65 04/07/20 17:00 18 126/71 Mechanical Ventilator 65 04/07/20 16:00 65 04/07/20 16:00 98.2 75 11 138/74 (95) 95 04/07/20 16:00 18 Mechanical Ventilator 65 04/07/20 16:00 18 151/77 Mechanical Ventilator 65 04/07/20 16:00 69 04/07/20 16:00 Mechanical Ventilator 04/07/20 15:00 63 19 65 04/07/20 15:00 62 12 106/60 (75) 94 04/07/20 15:00 18 Mechanical Ventilator 65 04/07/20 15:00 18 110/61 Mechanical Ventilator 65 04/07/20 14:00 18 Mechanical Ventilator 65 04/07/20 14:00 18 117/65 Mechanical Ventilator 65 04/07/20 14:00 64 0 113/64 (80) 96 04/07/20 13:00 60 18 127/66 (86) 98 04/07/20 13:00 18 Mechanical Ventilator 65 04/07/20 13:00 18 130/71 Mechanical Ventilator 65 04/07/20 12:00 62 04/07/20 12:00 Mechanical Ventilator 04/07/20 12:00 18 Mechanical Ventilator 65 04/07/20 12:00 18 130/75 Mechanical Ventilator 65 04/07/20 12:00 65 04/07/20 12:00 98.5 61 18 125/64 (84) 98 04/07/20 11:00 87 23 156/76 (102) 96 04/07/20 11:00 18 Mechanical Ventilator 65 04/07/20 11:00 18 113/62 Mechanical Ventilator 65 04/07/20 10:55 83 19 65 04/07/20 10:55 83 19 95 Mechanical Ventilator 65 04/07/20 10:01 19 151/86 Mechanical Ventilator 65 04/07/20 10:00 18 Mechanical Ventilator 65 04/07/20 10:00 18 154/82 Mechanical Ventilator 65 04/07/20 10:00 100 20 151/86 (107) 92 04/07/20 09:44 84 144/69 04/07/20 09:00 90 18 144/64 (90) 93 04/07/20 09:00 18 Mechanical Ventilator 65 04/07/20 09:00 18 144/69 Mechanical Ventilator 65 Intake and Output 04/07/20 04/08/20 19:00 07:00 Intake Total 1198 ml 1622 ml Output Total 530 ml 390 ml Balance 668 ml 1232 ml Free Water 310 ml 150 ml IV Total 608 ml 1012 ml Tube Feeding 280 ml 460 ml Output Urine Total 510 ml 390 ml Stool Total 20 ml 0 ml Laboratory Tests 04/07/20 10:37: Troponin I 0.033 04/07/20 10:53: Arterial Blood pH 7.439, Arterial Blood Partial Pressure CO2 53.6H, Arterial Blood Partial Pressure O2 63.1L, Arterial Blood HCO3 35.5H, Arterial Blood Oxygen Saturation 92.0L, Arterial Blood Base Excess 9.8*H, Shemar Test Positive 04/07/20 18:00: POC Whole Blood Glucose 140H 04/08/20 03:55: White Blood Count 5.9, Red Blood Count 3.84L, Hemoglobin 11.0L, Hematocrit 35.1L , Mean Corpuscular Volume 91, Mean Corpuscular Hemoglobin 28.5, Mean Corpuscular Hemoglobin Concent 31.3L, Red Cell Distribution Width 17.0H, Platelet Count 216, Mean Platelet Volume 7.2, Neutrophils (%) (Auto) , Lymphocytes (%) (Auto) , Monocytes (%) (Auto) , Eosinophils (%) (Auto) , Basophils (%) (Auto) , Neutrophils % (Manual) [Pending], Lymphocytes % (Manual) [Pending], Platelet Estimate [Pending], Platelet Morphology [Pending], Sodium Level 148H, Potassium Level 4.5, Chloride Level 113H, Carbon Dioxide Level 35H, Anion Gap 0L, Blood Urea Nitrogen 29H, Creatinine 0.4L, Estimat Glomerular Filtration Rate > 60, Glucose Level 155H, Calcium Level 8.3L, Phosphorus Level 2.7, Magnesium Level 2.5H, Total Bilirubin 1.2H, Direct Bilirubin 0.7H, Aspartate Amino Transf (AST/SGOT) 78H, Alanine Aminotransferase (ALT/SGPT) 271H, Alkaline Phosphatase 156H, C-Reactive Protein, Quantitative 2.1H, Pro-B-Type Natriuretic Peptide 254H , Total Protein 5.2L, Albumin 2.0L, Globulin 3.2, Albumin/Globulin Ratio 0.6L, Vitamin D 25-Hydroxy [Pending], 25-Hydroxy Vitamin D2 [Pending], 25-Hydroxy Vitamin D3 [Pending] 04/08/20 05:28: POC Whole Blood Glucose [Pending] Height (Feet): 5 Height (Inches): 10.00 Weight (Pounds): 240 General Appearance: lethargic EENT: normal ENT inspection Neck: supple Cardiovascular: tachycardia Respiratory/Chest: decreased breath sounds Abdomen: normal bowel sounds, non tender, soft Extremities: non-tender Assessment/Plan Status: stable, progressing Assessment/Plan: hep c + but neg RNA intubated OGTF reglan 10 mg repeat labs fu LFTS will fu Da Quintero MD Apr 08, 2020 08:59
--- NOTE | 2020-04-08 09:30 | NUR ---
NURSE NOTES: Pt. resting comfortably. Turned and repositioned. Oral care rendered.
--- NOTE | 2020-04-08 11:00 | NUR ---
NURSE NOTES: Seen by Dr. Guzman Rodriguez with nno.
[2020-04-08] MEDS: Midazolam HCl 50mg/10ml vial 50 MG in NS 90 ML IV PRN (12:34)
--- NOTE | 2020-04-08 12:45 | NUR ---
NURSE NOTES: Seen by Dr. Mata and ordered to wean Fi O2 from 65% to 60% and PEEP8 to 5. Called R.T for this changes. Will cont. to monitor.
--- NOTE | 2020-04-08 13:45 | NUR ---
RESPIRATORY NOTE: Decreased PEEP and FIO2 to +5, 60% per Dr. Mata. RN aware. Will continue to closely monitor and follow plan of care.
--- NOTE | 2020-04-08 15:08 | Infectious Diseases Prog Note ---
Assessment/Plan Assessment/Plan ASSESSMENT AND PLAN: 1. staph aureus bacteremia/mssa, ? source, ? endocarditis, sepsis, leukocytosis, ? CAP, PJP less likely with HIV negative and steroids < 1 month covid-19 +, hypoxia, sob, chest x-ray worse, ? PE, ? HCAP/aspiration pna recurrent fevers - ? fungal, ? OI leukocytosis noted - ? new infection, ? steroids cocci serology negative, legionella negative, beta 1,3 D-glucan wnl, Il-16 - 13.7 elevated LFT's - ? TPN, ? Bactrim - US without gallbladder disease, + steatosis - d/w GI - TPN more likely than bactrim as etiology e.coli uti - s/p treatment with rocephin, s/p treatment for presumptive pneumocystis pna + yeast in blood, fungemia, ? line infection, sepsis, shock, pna, sc-nf - s/p meropenem - micafungin - day # 6/14 (post negative blood cultures - 04/02/20) - picc line changed - surveillance blood cultures negative - bactrim for pneumocystis prophylaxis, s/p pneumocystis treatment - s/p tx for mssa bacteremia and ? endocarditis - monitor hypoxia, labs and chest x-ray - some clinical improvement with decrease in fio2 and now off pressors - guarded condition - monitor fevers - weaning per pulmonary medicine 2. covid-19 isolation 3. Hypertension history. Blood pressure treatment primary care team. 4. Elevated blood sugars. Blood sugar treatment per primary care team. 5. No known drug allergies. 6. Social history is positive for smoking. 7. Family history is noncontributory. 8. MAR was noted. 9. Case was discussed with RN. 10. Continue treatment per primary consultants. Subjective Constitutional: Denies: fever HEENT: Reports: congestion Respiratory: Reports: shortness of breath Cardiovascular: Denies: chest pain Gastrointestinal/Abdominal: Denies: nausea, vomiting, diarrhea Genitourinary: Reports: other Neurologic: Reports: weakness, other - responsive Psychiatric: Reports: other Skin: Reports: rash Hematologic: Denies: bleeding Musculoskeletal: Reports: other - NA Allergies: Coded Allergies: No Known Allergies (Unverified , 02/05/20) Objective Last 24 Hour Vital Signs Date Time Temp Pulse Resp B/P (MAP) Pulse Ox O2 Delivery O2 Flow Rate FiO2 04/08/20 14:00 107 19 196/83 (120) 89 04/08/20 14:00 19 Endotracheal Tube 60 04/08/20 14:00 19 196/83 Endotracheal Tube 60 04/08/20 13:47 21 129/81 Endotracheal Tube 60 04/08/20 13:46 18 142/62 Endotracheal Tube 60 04/08/20 13:45 60 04/08/20 13:00 98.2 83 18 142/62 (88) 95 04/08/20 13:00 18 Endotracheal Tube 65 04/08/20 13:00 18 142/62 Endotracheal Tube 65 04/08/20 12:34 18 Endotracheal Tube 65 04/08/20 12:00 Mechanical Ventilator 04/08/20 12:00 73 18 140/71 (94) 97 04/08/20 12:00 18 Endotracheal Tube 65 04/08/20 12:00 18 140/71 Endotracheal Tube 65 04/08/20 12:00 65 04/08/20 11:00 81 23 164/81 (108) 98 04/08/20 11:00 23 Endotracheal Tube 65 04/08/20 11:00 23 164/81 Endotracheal Tube 65 04/08/20 10:00 19 Endotracheal Tube 65 04/08/20 10:00 19 147/77 Endotracheal Tube 65 04/08/20 10:00 65 18 147/77 (100) 99 04/08/20 09:00 20 65 04/08/20 09:00 20 153/70 Endotracheal Tube 65 04/08/20 09:00 78 19 153/70 (97) 93 04/08/20 08:40 91 155/82 04/08/20 08:00 65 04/08/20 08:00 Mechanical Ventilator 04/08/20 08:00 98.4 101 22 176/87 (116) 90 04/08/20 08:00 23 Endotracheal Tube 65 04/08/20 08:00 23 176/87 Endotracheal Tube 65 04/08/20 07:40 114 04/08/20 07:00 16 Endotracheal Tube 65 04/08/20 07:00 16 135/72 Endotracheal Tube 65 04/08/20 07:00 84 14 135/72 (93) 95 04/08/20 06:30 82 18 97 04/08/20 06:15 87 24 96 04/08/20 06:00 98.4 93 17 108/60 (76) 94 04/08/20 06:00 24 Mechanical Ventilator 70 04/08/20 06:00 18 138/86 Mechanical Ventilator 70 04/08/20 05:45 100 20 86 04/08/20 05:30 119 23 135/80 (98) 89 04/08/20 05:22 16 134/92 Mechanical Ventilator 65 04/08/20 05:15 99 23 92 04/08/20 05:06 82 18 65 04/08/20 05:00 85 16 127/59 (81) 90 04/08/20 05:00 18 Mechanical Ventilator 65 04/08/20 05:00 18 137/84 Mechanical Ventilator 65 04/08/20 04:49 18 Mechanical Ventilator 65 04/08/20 04:45 91 16 90 04/08/20 04:30 98 14 130/56 (80) 90 04/08/20 04:15 83 14 91 04/08/20 04:00 Mechanical Ventilator 04/08/20 04:00 65 04/08/20 04:00 16 Mechanical Ventilator 65 04/08/20 04:00 16 122/58 Mechanical Ventilator 65 04/08/20 04:00 97.6 86 9 122/58 (79) 87 04/08/20 03:45 80 0 89 04/08/20 03:30 85 18 114/45 (68) 92 04/08/20 03:23 76 18 65 04/08/20 03:21 86 04/08/20 03:15 85 18 94 04/08/20 03:00 86 19 124/54 (77) 93 04/08/20 03:00 16 Mechanical Ventilator 65 04/08/20 03:00 18 124/54 Mechanical Ventilator 65 04/08/20 02:45 72 18 97 04/08/20 02:30 86 20 151/68 (95) 94 04/08/20 02:15 56 15 99 04/08/20 02:00 55 16 130/72 (91) 99 04/08/20 02:00 16 Mechanical Ventilator 65 04/08/20 02:00 18 130/72 Mechanical Ventilator 65 04/08/20 01:45 53 16 99 04/08/20 01:30 54 17 113/64 (80) 98 04/08/20 01:15 54 18 98 04/08/20 01:13 59 18 65 04/08/20 01:00 57 16 109/62 (78) 97 04/08/20 01:00 16 Mechanical Ventilator 65 04/08/20 01:00 16 100/62 Mechanical Ventilator 65 04/08/20 00:45 59 17 97 04/08/20 00:30 61 18 112/67 (82) 97 04/08/20 00:15 62 18 96 04/08/20 00:00 98.8 63 16 111/62 (78) 96 04/08/20 00:00 16 Mechanical Ventilator 65 04/08/20 00:00 16 105/65 Mechanical Ventilator 65 04/08/20 00:00 65 04/08/20 00:00 Mechanical Ventilator 04/07/20 23:45 61 18 96 04/07/20 23:30 69 18 65 04/07/20 23:30 62 17 116/65 (82) 95 04/07/20 23:15 65 16 96 04/07/20 23:09 64 04/07/20 23:00 16 Mechanical Ventilator 65 04/07/20 23:00 16 102/62 Mechanical Ventilator 65 04/07/20 23:00 64 16 120/67 (84) 96 04/07/20 22:45 65 16 96 04/07/20 22:30 62 16 115/67 (83) 96 04/07/20 22:15 65 16 96 04/07/20 22:00 63 16 119/63 (81) 96 04/07/20 22:00 16 Mechanical Ventilator 65 04/07/20 22:00 16 119/63 Mechanical Ventilator 65 04/07/20 21:45 64 0 97 04/07/20 21:30 62 14 136/76 (96) 98 04/07/20 21:15 59 0 96 04/07/20 21:02 18 Mechanical Ventilator 65 04/07/20 21:02 18 108/62 Mechanical Ventilator 65 04/07/20 21:00 58 0 105/61 (76) 97 04/07/20 20:45 61 0 97 04/07/20 20:30 60 0 115/68 (84) 98 04/07/20 20:29 61 18 65 04/07/20 20:15 64 0 98 04/07/20 20:00 65 04/07/20 20:00 98.6 74 13 142/75 (97) 96 04/07/20 20:00 Mechanical Ventilator 04/07/20 20:00 18 Mechanical Ventilator 65 04/07/20 20:00 18 Mechanical Ventilator 65 04/07/20 20:00 18 102/56 Mechanical Ventilator 65 04/07/20 20:00 18 108/60 Mechanical Ventilator 65 04/07/20 19:45 70 12 98 04/07/20 19:44 65 04/07/20 19:30 79 20 161/87 (111) 98 04/07/20 19:15 86 22 98 04/07/20 19:05 66 19 65 04/07/20 19:00 81 20 150/82 (104) 99 04/07/20 19:00 18 Mechanical Ventilator 65 04/07/20 18:59 18 130/71 Mechanical Ventilator 65 04/07/20 18:00 72 14 138/79 (98) 96 04/07/20 18:00 18 Mechanical Ventilator 65 04/07/20 18:00 18 138/79 Mechanical Ventilator 65 04/07/20 17:00 77 18 126/71 (89) 95 04/07/20 17:00 18 Mechanical Ventilator 65 04/07/20 17:00 18 126/71 Mechanical Ventilator 65 04/07/20 16:00 65 04/07/20 16:00 98.2 75 11 138/74 (95) 95 04/07/20 16:00 18 Mechanical Ventilator 65 04/07/20 16:00 18 151/77 Mechanical Ventilator 65 04/07/20 16:00 69 04/07/20 16:00 Mechanical Ventilator 04/07/20 15:00 63 19 65 04/07/20 15:00 62 12 106/60 (75) 94 04/07/20 15:00 18 Mechanical Ventilator 65 04/07/20 15:00 18 110/61 Mechanical Ventilator 65 Height (Feet): 5 Height (Inches): 10.00 Weight (Pounds): 240 General Appearance: other - on vent HEENT: normocephalic, atraumatic, anicteric Respiratory/Chest: crackles/rales, rhonchi - bilaterally Cardiovascular: normal rate, regular rhythm, no gallop/murmur Abdomen: normal bowel sounds, soft, non tender, no organomegaly, non distended Genitourinary: other - + joseph - urine slt cloudy Extremities: no cyanosis Skin: no rash 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 The infiltrates are typical for Covid 19. No evidence of pulmonary embolus. CT abdomen and pelvis: IMPRESSION: 1. Scattered hepatic hypodense lesions, too small to characterize on this examination without intravenous contrast. 2. Colonic diverticulosis without evidence of acute diverticulitis. 3. Scattered enlarged mesenteric lymph nodes, presumably reactive. teral pneumonia. The infiltrates are typical for Covid 19. No evidence of pulmonary embolus. Chest x-ray - 12/19/19 - Indication: Shortness of breath Technique: One view of the chest Comparison: 02/17/2020 Findings: Interim worsening of bilateral infiltrates, particularly on the right. The heart is borderline enlarged. The pleural spaces are clear. Left arm PICC is again demonstrated Impression: Worsening bilateral infiltrates over one day, likely pneumonia CT chest - 02/19/20 - IMPRESSION: Increased extensive patchy ground-glass opacities and densities throughout the lungs, suggestive of Covid 19 infection. Chest x-ray 02/23/20 - Procedure: XRAY Chest 1v As Indication: Reason For Exam: INFECT Technique: One view of the chest Comparison: 02/20/2020 Findings: Allowing for differences in exposure technique, bilateral mid and lower lung infiltrates are probably unchanged. The heart size is normal. The pleural spaces are clear. Impression: Unchanged, over 4 days, findings as above. Chest x-ray - 02/25/20 - FINDINGS: Lungs: Interval slightly worsening bilateral airspace disease. Pleural space: Unremarkable. No pneumothorax. Heart: Unremarkable. No cardiomegaly. Mediastinum: Unremarkable. Bones/joints: Unremarkable. IMPRESSION: Interval slightly worsening bilateral airspace disease. Chest x-ray - 03/02/20 - Procedure: XRAY Chest 1v Indication: Shortness of breath Technique: One view of the chest Comparison: 02/25/2020 Findings: Bilateral interstitial and airspace infiltrates are unchanged. The heart size is normal. Left arm PICC is again demonstrated Impression: Unchanged, over one day, findings as above. Chest x-ray - 03/06/20 - Procedure: XRAY Chest 1v Indication: Shortness of breath Technique: One view of the chest Comparison: 03/02/2020 Findings: Bilateral infiltrates are unchanged. Normal heart size. Pleural spaces are clear Chest x-ray - 03/12/10 - Impression: COMPARISON: Chest radiograph March 06, 2020. FINDINGS/IMPRESSION: Improving basilar infiltrates. Follow chest radiograph recommended. The upper lung finley are clear. No pneumothorax. Stable cardiomegaly. Stable left upper extremity PICC line. anged, over 4 days, findings as above. Chest x-ray - 03/17/20 - Procedure: XRAY Chest 1v Indication: Shortness of breath Technique: One view of the chest Comparison: 03/12/2020 Findings: Left arm PICC is again demonstrated. Infiltrates are unchanged. The heart size is upper limits of normal. Impression: Unchanged, over 5 days, findings as above. Abdominal US - IMPRESSION: 1. Gallbladder is normal. 2. Hepatic steatosis. 3. 1.7 cm cyst right kidney. Impression. Chest x-ray - Procedure: XRAY Chest 1v Indication: Shortness of breath Technique: One view of the chest Comparison: 03/17/2020 Findings: Bilateral right greater than left infiltrates again demonstrated. The heart size is normal. There is a left arm PICC in good position. Impression: Unchanged, over 5 days, findings as above. Chest x-ray - 03/29/20 - Procedure: XRAY Chest 1v Indication: Cough Technique: One view of the chest Comparison: 03/28/2020 Findings: Bilateral infiltrates are unchanged or slightly worse, allowing for differences in exposure technique. The pleural spaces are clear. The heart size is normal. Stable satisfactory position of endotracheal tube, left arm PICC. Orogastric tube has retracted somewhat the position remains satisfactory. Impression: Stable to slightly worse bilateral infiltrates. 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 Interim advancement of orogastric tube as well. Bilateral infiltrates are unchanged. Left arm PICC remains Impression: Improved and now satisfactory tube positions as described. ICU nurse Maeve notified at the time of interpretation Chest x-ray - 04/02/20 - COMPARISON: Chest x-rays dated 03/31/20 and 03/12/20. FINDINGS: Lungs: No significant change in bilateral prominent interstitial markings. The lungs are otherwise clear without focal consolidation. Pleural space: Unremarkable. The costophrenic angles are sharp. No visible pneumothorax. Heart: Unremarkable. No cardiomegaly. Mediastinum: Unremarkable. Bones/joints: Unremarkable. Tubes, lines and devices: Endotracheal tube tip 6.5 cm above the sunny. NG tube tip in the distal stomach. Telemetry leads overlie the thorax. IMPRESSION: No significant change in bilateral prominent interstitial markings. Procedure: XRAY Chest 1v Procedure: XRAY Chest 1v Reason for study: Shortness of breath 04/06/20 - Comparison films: 04/02/2020. FINDINGS: Endotracheal tube and NG tube remain in place. There is worsening of right basilar infiltrates. Some haziness in left lung base unchanged. Cardiac and mediastinal silhouette are within normal limits. CP angles are sharp. The bony thorax appear unremarkable. IMPRESSION: Worsening of right basilar infiltrate. Microbiology Date/Time Source Procedure Growth Status 04/02/20 16:35 Blood Blood Culture - Final NO GROWTH AFTER 5 DAYS Complete 03/29/20 18:57 Indwelling Cath Urine Culture - Final NO GROWTH AFTER 48 HOURS Complete 03/29/20 18:57 Sputum Gram Stain - Final Complete 03/29/20 18:57 Sputum Culture - Final Kat Albicans Usual Upper Respiratory Hillary Complete Laboratory Tests Test 04/07/20 18:00 04/08/20 03:55 04/08/20 05:28 POC Whole Blood Glucose 140 MG/DL (74-106) H Pending White Blood Count 5.9 K/UL (4.8-10.8) Red Blood Count 3.84 M/UL (4.70-6.10) L Hemoglobin 11.0 G/DL (14.2-18.0) L Hematocrit 35.1 % (42.0-52.0) L Mean Corpuscular Volume 91 FL (80-99) Mean Corpuscular Hemoglobin 28.5 PG (27.0-31.0) Mean Corpuscular Hemoglobin Concent 31.3 G/DL (32.0-36.0) L Red Cell Distribution Width 17.0 % (11.6-14.8) H Platelet Count 216 K/UL (150-450) Mean Platelet Volume 7.2 FL (6.5-10.1) Neutrophils (%) (Auto) % (45.0-75.0) Lymphocytes (%) (Auto) % (20.0-45.0) Monocytes (%) (Auto) % (1.0-10.0) Eosinophils (%) (Auto) % (0.0-3.0) Basophils (%) (Auto) % (0.0-2.0) Differential Total Cells Counted 100 Neutrophils % (Manual) 95 % (45-75) H Lymphocytes % (Manual) 3 % (20-45) L Monocytes % (Manual) 2 % (1-10) Eosinophils % (Manual) 0 % (0-3) Basophils % (Manual) 0 % (0-2) Band Neutrophils 0 % (0-8) Platelet Estimate Adequate Platelet Morphology Normal Anisocytosis 1+ Sodium Level 148 MMOL/L (136-145) H Potassium Level 4.5 MMOL/L (3.5-5.1) Chloride Level 113 MMOL/L (98-107) H Carbon Dioxide Level 35 MMOL/L (21-32) H Anion Gap 0 mmol/L (5-15) L Blood Urea Nitrogen 29 mg/dL (7-18) H Creatinine 0.4 MG/DL (0.55-1.30) L Estimat Glomerular Filtration Rate > 60 mL/min (>60) Glucose Level 155 MG/DL (74-106) H Calcium Level 8.3 MG/DL (8.5-10.1) L Phosphorus Level 2.7 MG/DL (2.5-4.9) Magnesium Level 2.5 MG/DL (1.8-2.4) H Total Bilirubin 1.2 MG/DL (0.2-1.0) H Direct Bilirubin 0.7 MG/DL (0.0-0.3) H Aspartate Amino Transf (AST/SGOT) 78 U/L (15-37) H Alanine Aminotransferase (ALT/SGPT) 271 U/L (12-78) H Alkaline Phosphatase 156 U/L (46-116) H C-Reactive Protein, Quantitative 2.1 mg/dL (0.00-0.90) H Pro-B-Type Natriuretic Peptide 254 pg/mL (0-125) H Total Protein 5.2 G/DL (6.4-8.2) L Albumin 2.0 G/DL (3.4-5.0) L Globulin 3.2 g/dL Albumin/Globulin Ratio 0.6 (1.0-2.7) L Vitamin D 25-Hydroxy Pending 25-Hydroxy Vitamin D2 Pending 25-Hydroxy Vitamin D3 Pending Current Medications Medications (Trade) Dose Ordered Sig/Dennis Route PRN Reason Start Time Stop Time Status Last Admin Dose Admin Amlodipine Besylate (Norvasc) 2.5 mg DAILY NG 04/06/20 18:45 05/06/20 18:44 04/08/20 08:40 Bisacodyl (Dulcolax) 10 mg Q12H PRN RECTAL Constipation 03/18/20 16:45 06/16/20 16:44 Chlorhexidine Gluconate (Marlen-Hex 2%) 1 applic DAILY@2000 TOPIC 03/30/20 20:00 06/28/20 19:59 04/07/20 20:57 Dextrose (Dextrose 50%) 25 ml Q30M PRN IV Hypoglycemia 03/29/20 20:45 06/27/20 20:44 Dextrose (Dextrose 50%) 50 ml Q30M PRN IV Hypoglycemia 03/29/20 20:45 06/27/20 20:44 Enoxaparin Sodium (Lovenox) 80 mg EVERY 12 HOURS SUBQ 04/06/20 21:00 07/05/20 20:59 04/08/20 08:42 Fentanyl Citrate 250 ml @ 1 mls/hr Q24H IV 04/04/20 20:00 04/09/20 19:59 04/08/20 13:47 Hydralazine HCl (Apresoline) 10 mg Q4H PRN IV For High Blood Pressure 03/30/20 12:15 06/28/20 12:14 04/03/20 21:00 Insulin Aspart (NovoLOG) Q6HR SUBQ 03/30/20 00:00 06/28/20 00:00 04/08/20 05:57 Labetalol HCl (Normodyne) 10 mg Q4H PRN IV sbp greater tahtn 160 03/28/20 17:30 04/27/20 17:29 Meropenem 1 gm/ Sodium Chloride 100 ml @ 200 mls/hr Q8HR IVPB 04/02/20 22:00 04/08/20 21:59 04/08/20 14:29 Methylprednisolone Sodium Succinate (Solu-MEDROL) 40 mg EVERY 8 HOURS IVP 03/22/20 14:00 06/20/20 13:59 04/08/20 14:29 Metoclopramide HCl (Reglan) 10 mg Q6H IVP 03/30/20 15:00 04/29/20 14:59 04/08/20 14:29 Micafungin Sodium 100 mg/Sodium Chloride 100 ml @ 100 mls/hr Q24H IVPB 03/29/20 15:00 04/11/20 23:59 04/07/20 15:36 Midazolam HCl 50 mg/Sodium Chloride 100 ml @ 0 mls/hr Q24H PRN IV Agitation 04/06/20 20:45 04/08/20 20:44 04/08/20 12:34 Pantoprazole (Protonix) 40 mg EVERY 12 HOURS IVP 04/01/20 21:00 05/01/20 20:59 04/08/20 08:38 Sodium Chloride 1,000 ml @ 60 mls/hr [id number] IV 04/07/20 21:00 05/07/20 20:59 04/08/20 13:44 Trimethoprim/ Sulfamethoxazole (Bactrim-DS) 1 tab Q24H ORAL 03/29/20 17:00 04/11/20 16:59 04/07/20 17:48 Vitamin D (Vitamin D) 10,000 unit DAILY GT 04/07/20 09:00 04/14/20 08:59 04/08/20 08:39 Kisha Salazar MD Apr 08, 2020 15:08
--- NOTE | 2020-04-08 15:15 | NUR ---
NURSE NOTES: Seen by Dr. Weinberg with new orders for labs and cxr. Noted and carried out.
--- NOTE | 2020-04-08 15:35 | Pulmonology Progress Note ---
Subjective ROS Limited/Unobtainable: No Interval Events: Intubated 03/28/20 Constitutional: Denies: fever HEENT: Repors: no symptoms Respiratory: Reports: dry cough, shortness of breath Cardiovascular: Reports: no symptoms Gastrointestinal/Abdominal: Denies: nausea, vomiting, diarrhea Psychiatric: Reports: other Skin: Reports: rash Musculoskeletal: Reports: other - NA Allergies: Coded Allergies: No Known Allergies (Unverified , 02/05/20) Objective Last 24 Hour Vital Signs Date Time Temp Pulse Resp B/P (MAP) Pulse Ox O2 Delivery O2 Flow Rate FiO2 04/08/20 14:00 107 19 196/83 (120) 89 04/08/20 14:00 19 Endotracheal Tube 60 04/08/20 14:00 19 196/83 Endotracheal Tube 60 04/08/20 13:47 21 129/81 Endotracheal Tube 60 04/08/20 13:46 18 142/62 Endotracheal Tube 60 04/08/20 13:45 60 04/08/20 13:10 105 19 65 04/08/20 13:00 98.2 83 18 142/62 (88) 95 04/08/20 13:00 18 Endotracheal Tube 65 04/08/20 13:00 18 142/62 Endotracheal Tube 65 04/08/20 12:34 18 Endotracheal Tube 65 04/08/20 12:00 Mechanical Ventilator 04/08/20 12:00 73 18 140/71 (94) 97 04/08/20 12:00 18 Endotracheal Tube 65 04/08/20 12:00 18 140/71 Endotracheal Tube 65 04/08/20 12:00 65 04/08/20 11:00 81 23 164/81 (108) 98 04/08/20 11:00 23 Endotracheal Tube 65 04/08/20 11:00 23 164/81 Endotracheal Tube 65 04/08/20 10:55 89 21 65 04/08/20 10:00 19 Endotracheal Tube 65 04/08/20 10:00 19 147/77 Endotracheal Tube 65 04/08/20 10:00 65 18 147/77 (100) 99 04/08/20 09:10 93 20 65 04/08/20 09:00 20 65 04/08/20 09:00 20 153/70 Endotracheal Tube 65 04/08/20 09:00 78 19 153/70 (97) 93 04/08/20 08:40 91 155/82 04/08/20 08:00 65 04/08/20 08:00 Mechanical Ventilator 04/08/20 08:00 98.4 101 22 176/87 (116) 90 04/08/20 08:00 23 Endotracheal Tube 65 04/08/20 08:00 23 176/87 Endotracheal Tube 65 04/08/20 07:40 114 04/08/20 07:10 96 21 65 04/08/20 07:00 16 Endotracheal Tube 65 04/08/20 07:00 16 135/72 Endotracheal Tube 65 04/08/20 07:00 84 14 135/72 (93) 95 04/08/20 06:30 82 18 97 04/08/20 06:15 87 24 96 04/08/20 06:00 98.4 93 17 108/60 (76) 94 04/08/20 06:00 24 Mechanical Ventilator 70 04/08/20 06:00 18 138/86 Mechanical Ventilator 70 04/08/20 05:45 100 20 86 04/08/20 05:30 119 23 135/80 (98) 89 04/08/20 05:22 16 134/92 Mechanical Ventilator 65 04/08/20 05:15 99 23 92 04/08/20 05:06 82 18 65 04/08/20 05:00 85 16 127/59 (81) 90 04/08/20 05:00 18 Mechanical Ventilator 65 04/08/20 05:00 18 137/84 Mechanical Ventilator 65 04/08/20 04:49 18 Mechanical Ventilator 65 04/08/20 04:45 91 16 90 04/08/20 04:30 98 14 130/56 (80) 90 04/08/20 04:15 83 14 91 04/08/20 04:00 Mechanical Ventilator 04/08/20 04:00 65 04/08/20 04:00 16 Mechanical Ventilator 65 04/08/20 04:00 16 122/58 Mechanical Ventilator 65 04/08/20 04:00 97.6 86 9 122/58 (79) 87 04/08/20 03:45 80 0 89 04/08/20 03:30 85 18 114/45 (68) 92 04/08/20 03:23 76 18 65 04/08/20 03:21 86 04/08/20 03:15 85 18 94 04/08/20 03:00 86 19 124/54 (77) 93 04/08/20 03:00 16 Mechanical Ventilator 65 04/08/20 03:00 18 124/54 Mechanical Ventilator 65 04/08/20 02:45 72 18 97 04/08/20 02:30 86 20 151/68 (95) 94 04/08/20 02:15 56 15 99 04/08/20 02:00 55 16 130/72 (91) 99 04/08/20 02:00 16 Mechanical Ventilator 65 04/08/20 02:00 18 130/72 Mechanical Ventilator 65 04/08/20 01:45 53 16 99 04/08/20 01:30 54 17 113/64 (80) 98 04/08/20 01:15 54 18 98 04/08/20 01:13 59 18 65 04/08/20 01:00 57 16 109/62 (78) 97 04/08/20 01:00 16 Mechanical Ventilator 65 04/08/20 01:00 16 100/62 Mechanical Ventilator 65 04/08/20 00:45 59 17 97 04/08/20 00:30 61 18 112/67 (82) 97 04/08/20 00:15 62 18 96 04/08/20 00:00 98.8 63 16 111/62 (78) 96 04/08/20 00:00 16 Mechanical Ventilator 65 04/08/20 00:00 16 105/65 Mechanical Ventilator 65 04/08/20 00:00 65 04/08/20 00:00 Mechanical Ventilator 04/07/20 23:45 61 18 96 04/07/20 23:30 69 18 65 04/07/20 23:30 62 17 116/65 (82) 95 04/07/20 23:15 65 16 96 04/07/20 23:09 64 04/07/20 23:00 16 Mechanical Ventilator 65 04/07/20 23:00 16 102/62 Mechanical Ventilator 65 04/07/20 23:00 64 16 120/67 (84) 96 04/07/20 22:45 65 16 96 04/07/20 22:30 62 16 115/67 (83) 96 04/07/20 22:15 65 16 96 04/07/20 22:00 63 16 119/63 (81) 96 04/07/20 22:00 16 Mechanical Ventilator 65 04/07/20 22:00 16 119/63 Mechanical Ventilator 65 04/07/20 21:45 64 0 97 04/07/20 21:30 62 14 136/76 (96) 98 04/07/20 21:15 59 0 96 04/07/20 21:02 18 Mechanical Ventilator 65 04/07/20 21:02 18 108/62 Mechanical Ventilator 65 04/07/20 21:00 58 0 105/61 (76) 97 04/07/20 20:45 61 0 97 04/07/20 20:30 60 0 115/68 (84) 98 04/07/20 20:29 61 18 65 04/07/20 20:15 64 0 98 04/07/20 20:00 65 04/07/20 20:00 98.6 74 13 142/75 (97) 96 04/07/20 20:00 Mechanical Ventilator 04/07/20 20:00 18 Mechanical Ventilator 65 04/07/20 20:00 18 Mechanical Ventilator 65 04/07/20 20:00 18 102/56 Mechanical Ventilator 65 04/07/20 20:00 18 108/60 Mechanical Ventilator 65 04/07/20 19:45 70 12 98 04/07/20 19:44 65 04/07/20 19:30 79 20 161/87 (111) 98 04/07/20 19:15 86 22 98 04/07/20 19:05 66 19 65 04/07/20 19:00 81 20 150/82 (104) 99 04/07/20 19:00 18 Mechanical Ventilator 65 04/07/20 18:59 18 130/71 Mechanical Ventilator 65 04/07/20 18:00 72 14 138/79 (98) 96 04/07/20 18:00 18 Mechanical Ventilator 65 04/07/20 18:00 18 138/79 Mechanical Ventilator 65 04/07/20 17:00 77 18 126/71 (89) 95 04/07/20 17:00 18 Mechanical Ventilator 65 04/07/20 17:00 18 126/71 Mechanical Ventilator 65 04/07/20 16:00 65 04/07/20 16:00 98.2 75 11 138/74 (95) 95 04/07/20 16:00 18 Mechanical Ventilator 65 04/07/20 16:00 18 151/77 Mechanical Ventilator 65 04/07/20 16:00 69 04/07/20 16:00 Mechanical Ventilator Intake and Output 04/07/20 04/08/20 19:00 07:00 Intake Total 1198 ml 1716 ml Output Total 530 ml 390 ml Balance 668 ml 1326 ml Free Water 310 ml 150 ml IV Total 608 ml 1106 ml Tube Feeding 280 ml 460 ml Output Urine Total 510 ml 390 ml Stool Total 20 ml 0 ml General Appearance: WD/WN, no acute distress HEENT: normocephalic, atraumatic Respiratory: chest wall non-tender Cardiovascular: normal rate, regular rhythm Abdomen: normal bowel sounds, soft, non tender, other - obese Laboratory Tests 04/07/20 18:00: POC Whole Blood Glucose 140H 04/08/20 03:55: White Blood Count 5.9, Red Blood Count 3.84L, Hemoglobin 11.0L, Hematocrit 35.1L , Mean Corpuscular Volume 91, Mean Corpuscular Hemoglobin 28.5, Mean Corpuscular Hemoglobin Concent 31.3L, Red Cell Distribution Width 17.0H, Platelet Count 216, Mean Platelet Volume 7.2, Neutrophils (%) (Auto) , Lymphocytes (%) (Auto) , Monocytes (%) (Auto) , Eosinophils (%) (Auto) , Basophils (%) (Auto) , Differential Total Cells Counted 100, Neutrophils % (Manual) 95H, Lymphocytes % (Manual) 3L, Monocytes % (Manual) 2, Eosinophils % (Manual) 0, Basophils % (Manual) 0, Band Neutrophils 0, Platelet Estimate Adequate, Platelet Morphology Normal, Anisocytosis 1+, Sodium Level 148H, Potassium Level 4.5, Chloride Level 113H, Carbon Dioxide Level 35H, Anion Gap 0L, Blood Urea Nitrogen 29H, Creatinine 0.4L, Estimat Glomerular Filtration Rate > 60, Glucose Level 155H, Calcium Level 8.3L, Phosphorus Level 2.7, Magnesium Level 2.5H, Total Bilirubin 1.2H, Direct Bilirubin 0.7H, Aspartate Amino Transf (AST/SGOT) 78H, Alanine Aminotransferase (ALT/SGPT) 271H, Alkaline Phosphatase 156H, C-Reactive Protein, Quantitative 2.1H, Pro-B-Type Natriuretic Peptide 254H, Total Protein 5.2L, Albumin 2.0L, Globulin 3.2, Albumin/Globulin Ratio 0.6L, Vitamin D 25-Hydroxy [Pending], 25-Hydroxy Vitamin D2 [Pending], 25-Hydroxy Vitamin D3 [Pending] 04/08/20 05:28: POC Whole Blood Glucose [Pending] Current Medications Medications (Trade) Dose Ordered Sig/Dennis Route PRN Reason Start Time Stop Time Status Last Admin Dose Admin Amlodipine Besylate (Norvasc) 2.5 mg DAILY NG 04/06/20 18:45 05/06/20 18:44 04/08/20 08:40 Bisacodyl (Dulcolax) 10 mg Q12H PRN RECTAL Constipation 03/18/20 16:45 06/16/20 16:44 Chlorhexidine Gluconate (Marlen-Hex 2%) 1 applic DAILY@2000 TOPIC 03/30/20 20:00 06/28/20 19:59 04/07/20 20:57 Dextrose (Dextrose 50%) 25 ml Q30M PRN IV Hypoglycemia 03/29/20 20:45 06/27/20 20:44 Dextrose (Dextrose 50%) 50 ml Q30M PRN IV Hypoglycemia 03/29/20 20:45 06/27/20 20:44 Enoxaparin Sodium (Lovenox) 80 mg EVERY 12 HOURS SUBQ 04/06/20 21:00 07/05/20 20:59 04/08/20 08:42 Fentanyl Citrate 250 ml @ 1 mls/hr Q24H IV 04/04/20 20:00 04/09/20 19:59 04/08/20 13:47 Hydralazine HCl (Apresoline) 10 mg Q4H PRN IV For High Blood Pressure 03/30/20 12:15 06/28/20 12:14 04/03/20 21:00 Insulin Aspart (NovoLOG) Q6HR SUBQ 03/30/20 00:00 06/28/20 00:00 04/08/20 05:57 Labetalol HCl (Normodyne) 10 mg Q4H PRN IV sbp greater tahtn 160 03/28/20 17:30 04/27/20 17:29 Meropenem 1 gm/ Sodium Chloride 100 ml @ 200 mls/hr Q8HR IVPB 04/02/20 22:00 04/08/20 21:59 04/08/20 14:29 Methylprednisolone Sodium Succinate (Solu-MEDROL) 40 mg EVERY 8 HOURS IVP 03/22/20 14:00 06/20/20 13:59 04/08/20 14:29 Metoclopramide HCl (Reglan) 10 mg Q6H IVP 03/30/20 15:00 04/29/20 14:59 04/08/20 14:29 Micafungin Sodium 100 mg/Sodium Chloride 100 ml @ 100 mls/hr Q24H IVPB 03/29/20 15:00 04/11/20 23:59 04/07/20 15:36 Midazolam HCl 50 mg/Sodium Chloride 100 ml @ 0 mls/hr Q24H PRN IV Agitation 04/06/20 20:45 04/08/20 20:44 04/08/20 12:34 Pantoprazole (Protonix) 40 mg EVERY 12 HOURS IVP 04/01/20 21:00 05/01/20 20:59 04/08/20 08:38 Sodium Chloride 1,000 ml @ 60 mls/hr [id number] IV 04/07/20 21:00 05/07/20 20:59 04/08/20 13:44 Trimethoprim/ Sulfamethoxazole (Bactrim-DS) 1 tab Q24H ORAL 03/29/20 17:00 04/11/20 16:59 04/07/20 17:48 Vitamin D (Vitamin D) 10,000 unit DAILY GT 04/07/20 09:00 04/14/20 08:59 04/08/20 08:39 Assessment/Plan Assessment/Plan Assessment/Plan 1.COVID-19 pneumonia. - Completed specific therapies - On solumedrol 2. DVT ppx - on lovenox 3. Hypertension - no longer on meds - May need pressors 4. Leukocytosis; - ID following - On abx - Budding yeast on blood CS 5. Elevated LFT - positive Hep C; treated in the past with IF 6. Respiratory failure -Intubated 03/28/20 -Family aware - Prognosis grave - Vt 750; rate 18 -On Fentanyl 7. Discussed with cardiology -No evidence for cardiac dysfunction or PE -tachycardic; will increase sedation 8. AMS -back on sedation - has apparent left arm paresis - Will consider CT brain when more stable S/p new PICC line On abx Slowly improving oxygenation Noted left upper extremity swelling. Has DVT; on full dose Lovenox Continue sedation, DC propofol given high triglycerides. Continue fentanyl and Versed. Oxygenation improving FiO2 65% PEEP8 John Mata MD Apr 08, 2020 15:35
--- NOTE | 2020-04-08 16:00 | NUR ---
NURSE NOTES: Seen by Dr. Rene with [facility].
--- NOTE | 2020-04-08 17:19 | NUR ---
CASE MANAGEMENT:REVIEW 04/08/20 SI: COVID PNA. UTI. RESP FAILURE~INTUBATED VS: T 98.2 HR 83 RR 18 B/P 142/62 SATS 95% ON MECH VENT FIO2 65 LABS: NA 148 CL 113 CO2 35 BUN 29 CR 0.4 GLU 155 CA 8.3 MG 2.5 TBILI 1.2 DBILI 0.7 AST 78 ALT 271 ALP 156 IS: FENTANYL GTT PROPOFOL GTT PRN LOVENOX SQ Q12 IV MEROPENEM Q8HRS IV PROTONIX Q12 IV MICAFUNGIN Q24 IV SOLUMEDROL Q8HRS BACTRIM NG Q24 IV REGLAN Q6HRS : ICU STATUS
[2020-04-08] MEDS: Bactrim-DS 1 tab ORAL SCH (17:39)
--- NOTE | 2020-04-08 17:40 | NUR ---
NURSE NOTES: Pt. alert, requesting for his cell phone. Pt. watching T.V. No SOB noted. O2 sat 92%. No c/o pain at present.
--- NOTE | 2020-04-08 17:51 | Nephrology Progress Note ---
Assessment/Plan Problem List: (1) Dehydration (2) Electrolyte imbalance (3) COVID-19 virus infection (4) Pneumonia (5) DMII (diabetes mellitus, type 2) (6) Protein malnutrition Assessment Azotemia, hypernatremia Hypoalbuminemia Staff Otilia bacteremia COVID-19 isolation, pneumonia, bilateral infiltrate Hypertension Diabetes mellitus History of smoking Plan April 08: Discussed with RN. Labs reviewed. Clinically improving. Requires lower PEEP. Continue per pulmonary. Continue to monitor renal parameters. April 07: Remains full code and on ventilator. Labs reviewed. Renal parameters and electrolytes stable. Continue per consultants. Blood pressure marginally improved. April 06: Full code. On ventilator. Blood pressure 80-90 systolic. IV Lasix discontinued. Free water through tube feeding ordered. Continue to monitor electrolytes and serum sodium. Down on fentanyl as possible. Discussed with RN Kevin. Clonidine patch discontinued. April 05: Status quo. Remains full code. Remains intubated. Labs reviewed. Renal parameters stable. Serum sodium 150 unchanged. Continue per consultants. April 04: Remains intubated and on ventilator. Remains full code. Labs rev iewed. Serum sodium 150 unchanged. Renal parameters stable. Continue per ID and pulmonary. April 03: Intubated. On ventilator. Full code. Labs reviewed. Serum sodium 150 unchanged. Continue to monitor renal parameters. Continue per pulmonary and ID. April 02: Full code. On ventilator. Discussed with RN. Serum sodium slightly higher. Will cut down on IV Lasix. Continue per consultants. Continue to monitor renal parameters and electrolytes. April 01: Full code. Remains on ventilator. Labs reviewed. Stable from renal standpoint of view. Continue per consultants. March 31: Full code . Remains intubated on ventilator. Labs reviewed. Patient appears toxic. Discussed with RN. Maintenance IV discontinued. Medication list reviewed. Blood pressure medication stopped due to low blood pressure. Levemir insulin stopped. Continue monitor blood sugar and sliding scale insulin. March 30: Full code. On ventilator. Labs reviewed. Clonidine patch dose increased. Lasix increased. 3% saline 1 time ordered. Continue to monitor electrolytes and renal parameters. March 29: Remains full code. On mechanical ventilation. On tube feeding. Will DC TPN. Will start on maintenance IV fluid. Continue to monitor renal parameters. March 28: On BiPAP. Full code. On TPN. Labs reviewed. Discussed with pharmacy. Continue as is. Watch serum potassium. March 27: Remains on BiPAP. No chemistry panel done today. Full code. On TPN. Will check lab tomorrow. March 26: Remains on BiPAP. Remains on TPN. Labs reviewed. Electrolytes and chemistries within normal limits. Continue as is. March 25: Remains on TPN. Labs reviewed. Discussed with pharmacy. Change IV Protonix to p.o. Continue 3% saline infusion with Lasix. Patient full code. March 24: Continue to be on TPN. Labs are reviewed. Aim to collect electrolytes. Discussed with pharmacy. Continue current consultants. March 23: Continues to be on TPN. Labs reviewed. Electrolytes and chemistries all acceptable. Discussed with pharmacy. Continue current management. March 22: On TPN. Labs reviewed. Low sodium noted. 3% saline to be continued. Continue to monitor electrolytes. Discussed with pharmacy. March 21: On TPN. Labs reviewed. Continue 3% saline and Lasix for mild hyponatremia. Continue TPN as these. Discussed with pharmacy. March 20: Remains on TPN. Labs reviewed. Serum sodium higher on IV Lasix and 3% saline infusion. Continue TPN as is. Continue to monitor renal parameters and electrolytes. Discussed with Dr. Mata March 19: Remains on TPN. Labs reviewed. Serum sodium 128. Will give 3% saline with IV Lasix. Continue to monitor electrolytes. No change in TPN composition. Discussed with pharmacy. March 18: Remains on TPN. Labs reviewed. Discussed with pharmacist. Will give 3 doses of IV Lasix 20 mg every 8 hours. Continue to monitor serum sodium electrolytes uric acid. White blood cells down. Continue per consultants. March 17: On TPN. Labs reviewed. Discussed with pharmacist. Sodium content increase. Continue to monitor CMP. Patient continues to have leukocytosis. March 16: On TPN. Labs reviewed. Discussed with pharmacist. Appropriate changes made. Continue to monitor electrolytes. March 15: Remains on TPN. Labs reviewed. Discussed with pharmacist. Continue per current management. March 14: Remains on TPN. Labs reviewed, stable. Vitamin D level low, replacement ordered. Continue to monitor electrolytes and renal parameters. March 13: Patient remains on TPN. Discussed with pharmacist. TPN's sodium content adjusted. Labs reviewed. Continue to monitor electrolytes. Blood pressure remains stable. Continue per consultants. March 12: Patient on TPN. Labs reviewed. CPK remains elevated. Abnormal electrolytes and high blood sugar discussed with pharmacist and TPN adjusted. Continue to monitor labs. Oral Protonix added. Ibuprofen discontinued. Can continue to monitor electrolytes and chemistries. Levemir for high blood sugar added. March 11: Patient on TPN. Labs as of 11:15 AM is still pending. Continue per current treatment plan. Will check labs and adjust TPN as needed. Continue per consultants. March 10: Patient on TPN. Labs reviewed. Electrolytes overall stable. CPK is elevated. Will monitor electrolyte, CPK level, lipid panel. Continue per consultants. Discussed with pharmacist. Discussed with RN. Nutritional evalua tion noted. Previously: D5W 100 cc an hour Monitor electrolytes renal parameters TPN and Intralipid ordered Will follow Continue per consultants Dietary consult requested Subjective ROS Limited/Unobtainable: Yes Objective Objective Last 24 Hour Vital Signs Date Time Temp Pulse Resp B/P (MAP) Pulse Ox O2 Delivery O2 Flow Rate FiO2 04/08/20 17:00 89 20 70 04/08/20 15:00 123 18 178/91 (120) 84 04/08/20 15:00 95 20 70 04/08/20 14:30 70 04/08/20 14:00 107 19 196/83 (120) 89 04/08/20 14:00 19 Endotracheal Tube 60 04/08/20 14:00 19 196/83 Endotracheal Tube 60 04/08/20 13:47 21 129/81 Endotracheal Tube 60 04/08/20 13:46 18 142/62 Endotracheal Tube 60 04/08/20 13:45 60 04/08/20 13:10 105 19 65 04/08/20 13:00 98.2 83 18 142/62 (88) 95 04/08/20 13:00 18 Endotracheal Tube 65 04/08/20 13:00 18 142/62 Endotracheal Tube 65 04/08/20 12:34 18 Endotracheal Tube 65 04/08/20 12:00 Mechanical Ventilator 04/08/20 12:00 73 18 140/71 (94) 97 04/08/20 12:00 18 Endotracheal Tube 65 04/08/20 12:00 18 140/71 Endotracheal Tube 65 04/08/20 12:00 65 04/08/20 11:00 81 23 164/81 (108) 98 04/08/20 11:00 23 Endotracheal Tube 65 04/08/20 11:00 23 164/81 Endotracheal Tube 65 04/08/20 10:55 89 21 65 04/08/20 10:00 19 Endotracheal Tube 65 04/08/20 10:00 19 147/77 Endotracheal Tube 65 04/08/20 10:00 65 18 147/77 (100) 99 04/08/20 09:10 93 20 65 04/08/20 09:00 20 65 04/08/20 09:00 20 153/70 Endotracheal Tube 65 04/08/20 09:00 78 19 153/70 (97) 93 04/08/20 08:40 91 155/82 04/08/20 08:00 65 04/08/20 08:00 Mechanical Ventilator 04/08/20 08:00 98.4 101 22 176/87 (116) 90 04/08/20 08:00 23 Endotracheal Tube 65 04/08/20 08:00 23 176/87 Endotracheal Tube 65 04/08/20 07:40 114 04/08/20 07:10 96 21 65 04/08/20 07:00 16 Endotracheal Tube 65 04/08/20 07:00 16 135/72 Endotracheal Tube 65 04/08/20 07:00 84 14 135/72 (93) 95 04/08/20 06:30 82 18 97 04/08/20 06:15 87 24 96 04/08/20 06:00 98.4 93 17 108/60 (76) 94 04/08/20 06:00 24 Mechanical Ventilator 70 04/08/20 06:00 18 138/86 Mechanical Ventilator 70 04/08/20 05:45 100 20 86 04/08/20 05:30 119 23 135/80 (98) 89 04/08/20 05:22 16 134/92 Mechanical Ventilator 65 04/08/20 05:15 99 23 92 04/08/20 05:06 82 18 65 04/08/20 05:00 85 16 127/59 (81) 90 04/08/20 05:00 18 Mechanical Ventilator 65 04/08/20 05:00 18 137/84 Mechanical Ventilator 65 04/08/20 04:49 18 Mechanical Ventilator 65 04/08/20 04:45 91 16 90 04/08/20 04:30 98 14 130/56 (80) 90 04/08/20 04:15 83 14 91 04/08/20 04:00 Mechanical Ventilator 04/08/20 04:00 65 04/08/20 04:00 16 Mechanical Ventilator 65 04/08/20 04:00 16 122/58 Mechanical Ventilator 65 04/08/20 04:00 97.6 86 9 122/58 (79) 87 04/08/20 03:45 80 0 89 04/08/20 03:30 85 18 114/45 (68) 92 04/08/20 03:23 76 18 65 04/08/20 03:21 86 04/08/20 03:15 85 18 94 04/08/20 03:00 86 19 124/54 (77) 93 04/08/20 03:00 16 Mechanical Ventilator 65 04/08/20 03:00 18 124/54 Mechanical Ventilator 65 04/08/20 02:45 72 18 97 04/08/20 02:30 86 20 151/68 (95) 94 04/08/20 02:15 56 15 99 04/08/20 02:00 55 16 130/72 (91) 99 04/08/20 02:00 16 Mechanical Ventilator 65 04/08/20 02:00 18 130/72 Mechanical Ventilator 65 04/08/20 01:45 53 16 99 04/08/20 01:30 54 17 113/64 (80) 98 04/08/20 01:15 54 18 98 04/08/20 01:13 59 18 65 04/08/20 01:00 57 16 109/62 (78) 97 04/08/20 01:00 16 Mechanical Ventilator 65 04/08/20 01:00 16 100/62 Mechanical Ventilator 65 04/08/20 00:45 59 17 97 04/08/20 00:30 61 18 112/67 (82) 97 04/08/20 00:15 62 18 96 04/08/20 00:00 98.8 63 16 111/62 (78) 96 04/08/20 00:00 16 Mechanical Ventilator 65 04/08/20 00:00 16 105/65 Mechanical Ventilator 65 04/08/20 00:00 65 04/08/20 00:00 Mechanical Ventilator 04/07/20 23:45 61 18 96 04/07/20 23:30 69 18 65 04/07/20 23:30 62 17 116/65 (82) 95 04/07/20 23:15 65 16 96 04/07/20 23:09 64 04/07/20 23:00 16 Mechanical Ventilator 65 04/07/20 23:00 16 102/62 Mechanical Ventilator 65 04/07/20 23:00 64 16 120/67 (84) 96 04/07/20 22:45 65 16 96 04/07/20 22:30 62 16 115/67 (83) 96 04/07/20 22:15 65 16 96 04/07/20 22:00 63 16 119/63 (81) 96 04/07/20 22:00 16 Mechanical Ventilator 65 04/07/20 22:00 16 119/63 Mechanical Ventilator 65 04/07/20 21:45 64 0 97 04/07/20 21:30 62 14 136/76 (96) 98 04/07/20 21:15 59 0 96 04/07/20 21:02 18 Mechanical Ventilator 65 04/07/20 21:02 18 108/62 Mechanical Ventilator 65 04/07/20 21:00 58 0 105/61 (76) 97 04/07/20 20:45 61 0 97 04/07/20 20:30 60 0 115/68 (84) 98 04/07/20 20:29 61 18 65 04/07/20 20:15 64 0 98 04/07/20 20:00 65 04/07/20 20:00 98.6 74 13 142/75 (97) 96 04/07/20 20:00 Mechanical Ventilator 04/07/20 20:00 18 Mechanical Ventilator 65 04/07/20 20:00 18 Mechanical Ventilator 65 04/07/20 20:00 18 102/56 Mechanical Ventilator 65 04/07/20 20:00 18 108/60 Mechanical Ventilator 65 04/07/20 19:45 70 12 98 04/07/20 19:44 65 04/07/20 19:30 79 20 161/87 (111) 98 04/07/20 19:15 86 22 98 04/07/20 19:05 66 19 65 04/07/20 19:00 81 20 150/82 (104) 99 04/07/20 19:00 18 Mechanical Ventilator 65 04/07/20 18:59 18 130/71 Mechanical Ventilator 65 04/07/20 18:00 72 14 138/79 (98) 96 04/07/20 18:00 18 Mechanical Ventilator 65 04/07/20 18:00 18 138/79 Mechanical Ventilator 65 Intake and Output 04/07/20 04/08/20 19:00 07:00 Intake Total 1198 ml 1716 ml Output Total 530 ml 390 ml Balance 668 ml 1326 ml Free Water 310 ml 150 ml IV Total 608 ml 1106 ml Tube Feeding 280 ml 460 ml Output Urine Total 510 ml 390 ml Stool Total 20 ml 0 ml Current Medications Medications (Trade) Dose Ordered Sig/Dennis Route PRN Reason Start Time Stop Time Status Last Admin Dose Admin Amlodipine Besylate (Norvasc) 2.5 mg DAILY NG 04/06/20 18:45 05/06/20 18:44 04/08/20 08:40 Bisacodyl (Dulcolax) 10 mg Q12H PRN RECTAL Constipation 03/18/20 16:45 06/16/20 16:44 Chlorhexidine Gluconate (Marlen-Hex 2%) 1 applic DAILY@2000 TOPIC 03/30/20 20:00 06/28/20 19:59 04/07/20 20:57 Dextrose (Dextrose 50%) 25 ml Q30M PRN IV Hypoglycemia 03/29/20 20:45 06/27/20 20:44 Dextrose (Dextrose 50%) 50 ml Q30M PRN IV Hypoglycemia 03/29/20 20:45 06/27/20 20:44 Enoxaparin Sodium (Lovenox) 80 mg EVERY 12 HOURS SUBQ 04/06/20 21:00 07/05/20 20:59 04/08/20 08:42 Fentanyl Citrate 250 ml @ 1 mls/hr Q24H IV 04/04/20 20:00 04/09/20 19:59 04/08/20 13:47 Hydralazine HCl (Apresoline) 10 mg Q4H PRN IV For High Blood Pressure 03/30/20 12:15 06/28/20 12:14 04/03/20 21:00 Insulin Aspart (NovoLOG) Q6HR SUBQ 03/30/20 00:00 06/28/20 00:00 04/08/20 05:57 Labetalol HCl (Normodyne) 10 mg Q4H PRN IV sbp greater tahtn 160 03/28/20 17:30 04/27/20 17:29 Meropenem 1 gm/ Sodium Chloride 100 ml @ 200 mls/hr Q8HR IVPB 04/02/20 22:00 04/08/20 21:59 04/08/20 14:29 Methylprednisolone Sodium Succinate (Solu-MEDROL) 40 mg EVERY 8 HOURS IVP 03/22/20 14:00 06/20/20 13:59 04/08/20 14:29 Metoclopramide HCl (Reglan) 10 mg Q6H IVP 03/30/20 15:00 04/29/20 14:59 04/08/20 14:29 Micafungin Sodium 100 mg/Sodium Chloride 100 ml @ 100 mls/hr Q24H IVPB 03/29/20 15:00 04/11/20 23:59 04/08/20 15:48 Midazolam HCl 50 mg/Sodium Chloride 100 ml @ 0 mls/hr Q24H PRN IV Agitation 04/06/20 20:45 04/08/20 20:44 04/08/20 12:34 Pantoprazole (Protonix) 40 mg EVERY 12 HOURS IVP 04/01/20 21:00 05/01/20 20:59 04/08/20 08:38 Sodium Chloride 1,000 ml @ 60 mls/hr [id number] IV 04/07/20 21:00 05/07/20 20:59 04/08/20 13:44 Trimethoprim/ Sulfamethoxazole (Bactrim-DS) 1 tab Q24H ORAL 03/29/20 17:00 04/11/20 16:59 04/08/20 17:39 Vitamin D (Vitamin D) 10,000 unit DAILY GT 04/07/20 09:00 04/14/20 08:59 04/08/20 08:39 Laboratory Tests 04/07/20 18:00: POC Whole Blood Glucose 140H 04/08/20 03:55: White Blood Count 5.9, Red Blood Count 3.84L, Hemoglobin 11.0L, Hematocrit 35.1L , Mean Corpuscular Volume 91, Mean Corpuscular Hemoglobin 28.5, Mean Corpuscular Hemoglobin Concent 31.3L, Red Cell Distribution Width 17.0H, Platelet Count 216, Mean Platelet Volume 7.2, Neutrophils (%) (Auto) , Lymphocytes (%) (Auto) , Monocytes (%) (Auto) , Eosinophils (%) (Auto) , Basophils (%) (Auto) , Differential Total Cells Counted 100, Neutrophils % (Manual) 95H, Lymphocytes % (Manual) 3L, Monocytes % (Manual) 2, Eosinophils % (Manual) 0, Basophils % (Manual) 0, Band Neutrophils 0, Platelet Estimate Adequate, Platelet Morphology Normal, Anisocytosis 1+, Sodium Level 148H, Potassium Level 4.5, Chloride Level 113H, Carbon Dioxide Level 35H, Anion Gap 0L, Blood Urea Nitrogen 29H, Creatinine 0.4L, Estimat Glomerular Filtration Rate > 60, Glucose Level 155H, Calcium Level 8.3L, Phosphorus Level 2.7, Magnesium Level 2.5H, Total Bilirubin 1.2H, Direct Bilirubin 0.7H, Aspartate Amino Transf (AST/SGOT) 78H, Alanine Aminotransferase (ALT/SGPT) 271H, Alkaline Phosphatase 156H, C-Reactive Protein, Quantitative 2.1H, Pro-B-Type Natriuretic Peptide 254H, Total Protein 5.2L, Albumin 2.0L, Globulin 3.2, Albumin/Globulin Ratio 0.6L, Vitamin D 25-Hydroxy [Pending], 25-Hydroxy Vitamin D2 [Pending], 25-Hydroxy Vitamin D3 [Pending] 04/08/20 05:28: POC Whole Blood Glucose [Pending] Height (Feet): 5 Height (Inches): 10.00 Weight (Pounds): 240 General Appearance: no apparent distress, other - Clinically improving EENT: other - Remains intubated on ventilator Cardiovascular: tachycardia Respiratory/Chest: decreased breath sounds Abdomen: distended Rubin Cooper MD Apr 08, 2020 17:51
--- NOTE | 2020-04-08 18:48 | Cardiology Progress Note ---
Assessment/Plan Problem List: (1) Hypertension (2) COVID-19 virus infection (3) Staphylococcus aureus bacteremia (4) Chest pain (5) Pneumonia Status: not improved, unchanged Status Narrative Pt now intubated. Repeat ECHO shows normal LV systolic function and no significant valve lesions Venous duplex of L arm shows acute L subclavian and axillary DVT. Pt now COVID negative ( though had previous false negative studies) , 1 bld cx + for Kat, + sputum kat and urine w/ e coli Assessment/Plan Continue vent support, iv steroids IV heparin for L arm DVT IV antibiotics and antifungals per ID. No evidence for LV dysfunction on current ECHO. Inc amlodipine for better BP control. Subjective ROS Limited/Unobtainable: Yes Subjective Cardiology for Dr. Awan Mr Horta is intubated, awake Objective Last 24 Hour Vital Signs Date Time Temp Pulse Resp B/P (MAP) Pulse Ox O2 Delivery O2 Flow Rate FiO2 04/08/20 17:00 89 20 70 04/08/20 15:00 123 18 178/91 (120) 84 04/08/20 15:00 95 20 70 04/08/20 14:30 70 04/08/20 14:00 107 19 196/83 (120) 89 04/08/20 14:00 19 Endotracheal Tube 60 04/08/20 14:00 19 196/83 Endotracheal Tube 60 04/08/20 13:47 21 129/81 Endotracheal Tube 60 04/08/20 13:46 18 142/62 Endotracheal Tube 60 04/08/20 13:45 60 04/08/20 13:10 105 19 65 04/08/20 13:00 98.2 83 18 142/62 (88) 95 04/08/20 13:00 18 Endotracheal Tube 65 04/08/20 13:00 18 142/62 Endotracheal Tube 65 04/08/20 12:34 18 Endotracheal Tube 65 04/08/20 12:00 Mechanical Ventilator 04/08/20 12:00 73 18 140/71 (94) 97 04/08/20 12:00 18 Endotracheal Tube 65 04/08/20 12:00 18 140/71 Endotracheal Tube 65 04/08/20 12:00 65 04/08/20 11:00 81 23 164/81 (108) 98 04/08/20 11:00 23 Endotracheal Tube 65 04/08/20 11:00 23 164/81 Endotracheal Tube 65 04/08/20 10:55 89 21 65 04/08/20 10:00 19 Endotracheal Tube 65 04/08/20 10:00 19 147/77 Endotracheal Tube 65 04/08/20 10:00 65 18 147/77 (100) 99 04/08/20 09:10 93 20 65 04/08/20 09:00 20 65 04/08/20 09:00 20 153/70 Endotracheal Tube 65 04/08/20 09:00 78 19 153/70 (97) 93 04/08/20 08:40 91 155/82 04/08/20 08:00 65 04/08/20 08:00 Mechanical Ventilator 04/08/20 08:00 98.4 101 22 176/87 (116) 90 04/08/20 08:00 23 Endotracheal Tube 65 04/08/20 08:00 23 176/87 Endotracheal Tube 65 04/08/20 07:40 114 04/08/20 07:10 96 21 65 04/08/20 07:00 16 Endotracheal Tube 65 04/08/20 07:00 16 135/72 Endotracheal Tube 65 04/08/20 07:00 84 14 135/72 (93) 95 04/08/20 06:30 82 18 97 04/08/20 06:15 87 24 96 04/08/20 06:00 98.4 93 17 108/60 (76) 94 04/08/20 06:00 24 Mechanical Ventilator 70 04/08/20 06:00 18 138/86 Mechanical Ventilator 70 04/08/20 05:45 100 20 86 04/08/20 05:30 119 23 135/80 (98) 89 04/08/20 05:22 16 134/92 Mechanical Ventilator 65 04/08/20 05:15 99 23 92 04/08/20 05:06 82 18 65 04/08/20 05:00 85 16 127/59 (81) 90 04/08/20 05:00 18 Mechanical Ventilator 65 04/08/20 05:00 18 137/84 Mechanical Ventilator 65 04/08/20 04:49 18 Mechanical Ventilator 65 04/08/20 04:45 91 16 90 04/08/20 04:30 98 14 130/56 (80) 90 04/08/20 04:15 83 14 91 04/08/20 04:00 Mechanical Ventilator 2/6/21 04:00 65 04/08/20 04:00 16 Mechanical Ventilator 65 04/08/20 04:00 16 122/58 Mechanical Ventilator 65 04/08/20 04:00 97.6 86 9 122/58 (79) 87 04/08/20 03:45 80 0 89 04/08/20 03:30 85 18 114/45 (68) 92 04/08/20 03:23 76 18 65 04/08/20 03:21 86 04/08/20 03:15 85 18 94 04/08/20 03:00 86 19 124/54 (77) 93 04/08/20 03:00 16 Mechanical Ventilator 65 04/08/20 03:00 18 124/54 Mechanical Ventilator 65 04/08/20 02:45 72 18 97 04/08/20 02:30 86 20 151/68 (95) 94 04/08/20 02:15 56 15 99 04/08/20 02:00 55 16 130/72 (91) 99 04/08/20 02:00 16 Mechanical Ventilator 65 04/08/20 02:00 18 130/72 Mechanical Ventilator 65 04/08/20 01:45 53 16 99 04/08/20 01:30 54 17 113/64 (80) 98 04/08/20 01:15 54 18 98 04/08/20 01:13 59 18 65 04/08/20 01:00 57 16 109/62 (78) 97 04/08/20 01:00 16 Mechanical Ventilator 65 04/08/20 01:00 16 100/62 Mechanical Ventilator 65 04/08/20 00:45 59 17 97 04/08/20 00:30 61 18 112/67 (82) 97 04/08/20 00:15 62 18 96 04/08/20 00:00 98.8 63 16 111/62 (78) 96 04/08/20 00:00 16 Mechanical Ventilator 65 04/08/20 00:00 16 105/65 Mechanical Ventilator 65 04/08/20 00:00 65 04/08/20 00:00 Mechanical Ventilator 04/07/20 23:45 61 18 96 04/07/20 23:30 69 18 65 04/07/20 23:30 62 17 116/65 (82) 95 04/07/20 23:15 65 16 96 04/07/20 23:09 64 2/5/21 23:00 16 Mechanical Ventilator 65 04/07/20 23:00 16 102/62 Mechanical Ventilator 65 04/07/20 23:00 64 16 120/67 (84) 96 04/07/20 22:45 65 16 96 04/07/20 22:30 62 16 115/67 (83) 96 04/07/20 22:15 65 16 96 04/07/20 22:00 63 16 119/63 (81) 96 04/07/20 22:00 16 Mechanical Ventilator 65 04/07/20 22:00 16 119/63 Mechanical Ventilator 65 04/07/20 21:45 64 0 97 04/07/20 21:30 62 14 136/76 (96) 98 04/07/20 21:15 59 0 96 04/07/20 21:02 18 Mechanical Ventilator 65 04/07/20 21:02 18 108/62 Mechanical Ventilator 65 04/07/20 21:00 58 0 105/61 (76) 97 04/07/20 20:45 61 0 97 04/07/20 20:30 60 0 115/68 (84) 98 04/07/20 20:29 61 18 65 04/07/20 20:15 64 0 98 04/07/20 20:00 65 04/07/20 20:00 98.6 74 13 142/75 (97) 96 04/07/20 20:00 Mechanical Ventilator 04/07/20 20:00 18 Mechanical Ventilator 65 04/07/20 20:00 18 Mechanical Ventilator 65 04/07/20 20:00 18 102/56 Mechanical Ventilator 65 04/07/20 20:00 18 108/60 Mechanical Ventilator 65 04/07/20 19:45 70 12 98 04/07/20 19:44 65 04/07/20 19:30 79 20 161/87 (111) 98 04/07/20 19:15 86 22 98 04/07/20 19:05 66 19 65 04/07/20 19:00 81 20 150/82 (104) 99 04/07/20 19:00 18 Mechanical Ventilator 65 04/07/20 18:59 18 130/71 Mechanical Ventilator 65 General Appearance: WD/WN, no apparent distress, on vent, other - remainder of exam deferred due to COVID isolation Intake and Output 04/07/20 04/08/20 19:00 07:00 Intake Total 1198 ml 1716 ml Output Total 530 ml 390 ml Balance 668 ml 1326 ml Free Water 310 ml 150 ml IV Total 608 ml 1106 ml Tube Feeding 280 ml 460 ml Output Urine Total 510 ml 390 ml Stool Total 20 ml 0 ml Laboratory Tests Test 04/08/20 03:55 04/08/20 05:28 White Blood Count 5.9 K/UL (4.8-10.8) Red Blood Count 3.84 M/UL (4.70-6.10) L Hemoglobin 11.0 G/DL (14.2-18.0) L Hematocrit 35.1 % (42.0-52.0) L Mean Corpuscular Volume 91 FL (80-99) Mean Corpuscular Hemoglobin 28.5 PG (27.0-31.0) Mean Corpuscular Hemoglobin Concent 31.3 G/DL (32.0-36.0) L Red Cell Distribution Width 17.0 % (11.6-14.8) H Platelet Count 216 K/UL (150-450) Mean Platelet Volume 7.2 FL (6.5-10.1) Neutrophils (%) (Auto) % (45.0-75.0) Lymphocytes (%) (Auto) % (20.0-45.0) Monocytes (%) (Auto) % (1.0-10.0) Eosinophils (%) (Auto) % (0.0-3.0) Basophils (%) (Auto) % (0.0-2.0) Differential Total Cells Counted 100 Neutrophils % (Manual) 95 % (45-75) H Lymphocytes % (Manual) 3 % (20-45) L Monocytes % (Manual) 2 % (1-10) Eosinophils % (Manual) 0 % (0-3) Basophils % (Manual) 0 % (0-2) Band Neutrophils 0 % (0-8) Platelet Estimate Adequate Platelet Morphology Normal Anisocytosis 1+ Sodium Level 148 MMOL/L (136-145) H Potassium Level 4.5 MMOL/L (3.5-5.1) Chloride Level 113 MMOL/L (98-107) H Carbon Dioxide Level 35 MMOL/L (21-32) H Anion Gap 0 mmol/L (5-15) L Blood Urea Nitrogen 29 mg/dL (7-18) H Creatinine 0.4 MG/DL (0.55-1.30) L Estimat Glomerular Filtration Rate > 60 mL/min (>60) Glucose Level 155 MG/DL (74-106) H Calcium Level 8.3 MG/DL (8.5-10.1) L Phosphorus Level 2.7 MG/DL (2.5-4.9) Magnesium Level 2.5 MG/DL (1.8-2.4) H Total Bilirubin 1.2 MG/DL (0.2-1.0) H Direct Bilirubin 0.7 MG/DL (0.0-0.3) H Aspartate Amino Transf (AST/SGOT) 78 U/L (15-37) H Alanine Aminotransferase (ALT/SGPT) 271 U/L (12-78) H Alkaline Phosphatase 156 U/L (46-116) H C-Reactive Protein, Quantitative 2.1 mg/dL (0.00-0.90) H Pro-B-Type Natriuretic Peptide 254 pg/mL (0-125) H Total Protein 5.2 G/DL (6.4-8.2) L Albumin 2.0 G/DL (3.4-5.0) L Globulin 3.2 g/dL Albumin/Globulin Ratio 0.6 (1.0-2.7) L Vitamin D 25-Hydroxy Pending 25-Hydroxy Vitamin D2 Pending 25-Hydroxy Vitamin D3 Pending POC Whole Blood Glucose Pending Lily Rene MD Apr 08, 2020 18:48
--- NOTE | 2020-04-08 19:10 | NUR ---
Received report from PRIYANKA Bunch. Assumed care of patient
--- NOTE | 2020-04-08 19:10 | NUR ---
Received report from PRIYANKA Bunch and assumed care of patient. [employer] C[employer]IER in patients room.
[2020-04-08] MEDS: Dyna-Hex 2% Top Sol 2oz TOPIC SCH (19:34)
--- NOTE | 2020-04-08 19:40 | NUR ---
NURSE HAND-OFF REPORT: Fi O2 change to 60% from 65% and PEEP from 8 to 5. Tolerating well. Latest Vital Signs: Temperature 98.2 , Pulse 127 , B/P 120 /65 , Respiratory Rate 24 , O2 SAT 91 , Endotracheal Tube, O2 Flow Rate . Vital Sign Comment: wnl EKG Rhythm: Sinus Rhythm Rhythm change?: N Notified?: Courtney Paige MD Response: Message left await call Latest Hassan Fall Score: 35 Fall Risk: Medium Risk Safety Measures: Call light Within Reach, Bed Alarm Zone 3, Side Rails Side Rails x3, Bed position Low and Locked. Fall Precautions: Yellow Socks Yellow Gown Door Sign Patient Fall Education Report given to Margy MATHEW.
--- NOTE | 2020-04-08 20:00 | NUR ---
In patient room with COMMERCIAL LOAN ANALYST to change patient, reposition, provide oral care, and CHG bathe. Patient wide awake, biting ETT and reaching for tube. Attempted to place a bite block but was unsuccessful. Will let GALVANIZER ZINC to place one next time they assessed the patient. Not following commands to open his mouth, fighting vent. Had to sedate Mr. Horta to allow for Ventilator to oxygenate effectively. Dropping O2 sats to mid 80's. Increased FiO2 to 75% from 70% (GALVANIZER ZINC increased to 70% when in room earlier). Patient continues to have low sat despite sedation, suction, and recovery time allowance. Increased FiO2 to 80%. Patient increased sat to 92% on new settings. Will continue to monitor patient.
--- NOTE | 2020-04-08 22:00 | NUR ---
Q2H Nursing Note: Patient stable, much more comfortable at a AUDREY -2. Patient awakens to loud voice and follows commands. Repositioned and oral care provided. Will continue to monitor the patient. INTERMODAL TRUCK DRIVER able to wean patient back down on vent to 70% FiO2. VSS.
[2020-04-09] VITALS (44 sets, daily range): BP systolic 75–153; BP diastolic 43–84
--- NOTE | 2020-04-09 | NUR ---
Patient remains at a AUDREY -2, VSS, repositioned, oral care provided. BG checked and covered with 2 units insulin. Will continue to monitor patient. MANAGER GROUP weaned patient down to 70% FiO2
--- NOTE | 2020-04-09 01:30 | NUR ---
Patient repositioned, oral care provided, and VSS. GUEST SERVICE HOST changed FiO2 to 65%. Pt tolerating well. Will continue to monitor.
[2020-04-09] MEDS: Midazolam HCl 50mg/10ml vial 100 MG in NS 180 ML IV PRN ×3 (01:55→22:39)
[2020-04-09] MEDS: NovoLOG Insulin Flexpen SUBQ SCH ×4 (02:00→18:00)
[2020-04-09] MEDS: Metoclopramide 10mg/2ml Inj IVP SCH ×4 (03:00→21:28)
--- NOTE | 2020-04-09 04:25 | NUR ---
patient repositioned, oral care provided, DIE DEVELOPER in room with this RN. Rectal tube intact, no leaking seen, small additional output in the tube. Urine output is good overnight. Tolerating TF at rate of 50ml/hr with largest residual at 60ml. Will continue to monitor patient.
--- NOTE | 2020-04-09 06:00 | NUR ---
Patient remains stable. Oral care provided. Will continue to monitor.
[2020-04-09] MEDS: Solu-MEDROL 40mg Inj IVP SCH ×3 (06:33→21:30)
[2020-04-09 06:41] LABS: HEMATOCRIT 30.9 % (42.0-52.0); HEMOGLOBIN 9.7 G/DL (14.2-18.0); MEAN CORPUSCULAR VOLUME 91 FL (80-99); PLATELET COUNT 208 K/UL (150-450); RED BLOOD COUNT 3.39 M/UL (4.70-6.10); WHITE BLOOD COUNT 4.7 K/UL (4.8-10.8)
[2020-04-09 07:02] LABS: PHOSPHORUS 2.4 MG/DL (2.5-4.9)
--- NOTE | 2020-04-09 07:10 | NUR ---
RESPIRATORY NOTE: PT received on AC/VC: 18, 750 70%, +5. Alarms are on and audible. Vent circuit is secure and out of the way. Airway is secure and patent. No s/s of respiratory distress noted at this time. Will continue to closely monitor.
[2020-04-09 07:16] LABS: ALANINE AMINOTRANSFERASE 416 U/L (12-78); ALBUMIN 1.7 G/DL (3.4-5.0); ALBUMIN/GLOBULIN RATIO 0.6 (1.0-2.7); ALKALINE PHOSPHATASE 244 U/L (46-116); ANION GAP 2 mmol/L (5-15); ASPARTATE AMINO TRANSFERASE 143 U/L (15-37); BILIRUBIN,TOTAL 0.9 MG/DL (0.2-1.0); BLOOD UREA NITROGEN 22 mg/dL (7-18); CALCIUM 7.9 MG/DL (8.5-10.1); CARBON DIOXIDE 34 MMOL/L (21-32); CHLORIDE 110 MMOL/L (98-107); CREATININE 0.4 MG/DL (0.55-1.30); POTASSIUM 4.9 MMOL/L (3.5-5.1); SODIUM 146 MMOL/L (136-145)
--- NOTE | 2020-04-09 07:34 | NUR ---
Report given to PRIYANKA Downing who assumed care of patient. Notified ORCHESTRA LEADER Ayala of current FiO2 at 70% as patient is on Right lateral side. Patient would not sustain O2 Sat greater than 89% at FiO2 of 65%. Explained that when patient is repositioned off of Right side he should be able to be decreased back to 65% without difficulty.
--- NOTE | 2020-04-09 07:36 | General Progress Note ---
Subjective ROS Limited/Unobtainable: No Allergies: Coded Allergies: No Known Allergies (Unverified , 02/05/20) Objective Last 24 Hour Vital Signs Date Time Temp Pulse Resp B/P (MAP) Pulse Ox O2 Delivery O2 Flow Rate FiO2 04/09/20 07:00 20 Mechanical Ventilator 70 04/09/20 07:00 20 113/68 Mechanical Ventilator 70 04/09/20 06:30 78 18 113/69 (84) 96 04/09/20 06:00 20 Mechanical Ventilator 70 04/09/20 06:00 20 113/65 Mechanical Ventilator 70 04/09/20 06:00 79 18 95/60 (72) 94 04/09/20 05:30 84 18 101/65 (77) 94 04/09/20 05:00 20 Mechanical Ventilator 65 04/09/20 05:00 20 116/69 Mechanical Ventilator 70 04/09/20 05:00 83 18 116/63 (80) 91 04/09/20 04:45 76 18 114/63 (80) 92 04/09/20 04:30 73 18 114/63 (80) 92 04/09/20 04:15 73 18 92 04/09/20 04:00 99.8 70 10 100/67 (78) 95 04/09/20 04:00 65 04/09/20 04:00 20 Mechanical Ventilator 65 04/09/20 04:00 20 125/73 Mechanical Ventilator 65 04/09/20 04:00 Mechanical Ventilator 04/09/20 03:45 69 15 95 04/09/20 03:30 73 11 96/67 (77) 95 04/09/20 03:15 76 17 95 04/09/20 03:01 78 04/09/20 03:00 20 Mechanical Ventilator 65 04/09/20 03:00 20 117/67 Mechanical Ventilator 65 04/09/20 03:00 78 18 91/63 (72) 95 04/09/20 02:45 78 12 95 04/09/20 02:30 79 1 98/64 (75) 94 04/09/20 02:15 78 16 94 04/09/20 02:00 83 17 101/72 (82) 94 04/09/20 02:00 20 Mechanical Ventilator 65 04/09/20 02:00 20 116/71 Mechanical Ventilator 65 04/09/20 01:55 18 Mechanical Ventilator 65 04/09/20 01:45 71 18 95 04/09/20 01:30 68 18 108/68 (81) 96 04/09/20 01:15 70 18 95 04/09/20 01:00 67 18 115/73 (87) 96 04/09/20 01:00 20 Mechanical Ventilator 65 04/09/20 01:00 20 108/63 Mechanical Ventilator 65 04/09/20 00:52 69 18 70 04/09/20 00:45 68 18 97 04/09/20 00:30 68 18 106/67 (80) 96 04/09/20 00:15 68 18 97 04/09/20 00:00 Mechanical Ventilator 04/09/20 00:00 70 04/09/20 00:00 20 Mechanical Ventilator 70 04/09/20 00:00 20 109/62 Mechanical Ventilator 70 04/09/20 00:00 99.2 69 18 109/69 (82) 97 04/08/20 23:45 68 18 97 04/08/20 23:30 69 18 109/75 (86) 97 04/08/20 23:29 18 114/73 Mechanical Ventilator 70 04/08/20 23:15 67 18 97 04/08/20 23:11 69 04/08/20 23:00 70 18 114/73 (87) 97 04/08/20 23:00 18 Mechanical Ventilator 70 04/08/20 22:45 70 18 97 04/08/20 22:30 70 18 119/82 (94) 97 04/08/20 22:15 72 19 97 04/08/20 22:00 18 Mechanical Ventilator 70 04/08/20 22:00 18 109/78 Mechanical Ventilator 70 04/08/20 22:00 73 18 109/78 (88) 96 04/08/20 21:45 74 18 95 04/08/20 21:30 80 18 104/78 (87) 95 04/08/20 21:15 77 18 97 04/08/20 21:00 85 95/68 04/08/20 21:00 18 Mechanical Ventilator 80 04/08/20 21:00 18 95/68 Mechanical Ventilator 80 04/08/20 21:00 80 18 95/68 (77) 95 04/08/20 20:45 83 16 94 04/08/20 20:30 88 17 85/58 (67) 95 04/08/20 20:15 95 18 93 04/08/20 20:00 96.8 99 20 124/82 (96) 91 04/08/20 20:00 Mechanical Ventilator 04/08/20 20:00 24 Mechanical Ventilator 80 04/08/20 20:00 24 211/109 Mechanical Ventilator 80 04/08/20 20:00 80 04/08/20 19:53 109 17 151/91 (111) 86 04/08/20 19:45 22 75 04/08/20 19:45 106 22 200/109 (139) 98 04/08/20 19:30 112 21 215/91 (132) 97 04/08/20 19:20 22 Mechanical Ventilator 75 04/08/20 19:16 102 04/08/20 19:00 98 24 174/89 (117) 91 04/08/20 19:00 127 24 70 04/08/20 19:00 24 Endotracheal Tube 60 04/08/20 19:00 24 174/89 Endotracheal Tube 60 04/08/20 18:00 100 20 166/82 (110) 88 04/08/20 18:00 20 Endotracheal Tube 60 04/08/20 18:00 20 166/82 Endotracheal Tube 60 04/08/20 17:00 98.4 94 18 137/62 (87) 91 04/08/20 17:00 89 20 70 04/08/20 17:00 18 Endotracheal Tube 60 04/08/20 17:00 18 137/62 Endotracheal Tube 60 04/08/20 16:00 88 04/08/20 16:00 60 04/08/20 16:00 Mechanical Ventilator 04/08/20 16:00 88 17 120/65 (83) 91 04/08/20 16:00 17 Endotracheal Tube 60 04/08/20 16:00 17 120/65 Endotracheal Tube 60 04/08/20 15:44 88 04/08/20 15:00 17 Endotracheal Tube 60 04/08/20 15:00 17 178/91 Endotracheal Tube 60 04/08/20 15:00 123 18 178/91 (120) 84 04/08/20 15:00 95 20 70 04/08/20 14:30 70 04/08/20 14:00 107 19 196/83 (120) 89 04/08/20 14:00 19 Endotracheal Tube 60 04/08/20 14:00 19 196/83 Endotracheal Tube 60 04/08/20 13:47 21 129/81 Endotracheal Tube 60 04/08/20 13:46 18 142/62 Endotracheal Tube 60 04/08/20 13:45 60 04/08/20 13:10 105 19 65 04/08/20 13:00 98.2 83 18 142/62 (88) 95 04/08/20 13:00 18 Endotracheal Tube 65 04/08/20 13:00 18 142/62 Endotracheal Tube 65 04/08/20 12:34 18 Endotracheal Tube 65 04/08/20 12:00 Mechanical Ventilator 04/08/20 12:00 73 18 140/71 (94) 97 04/08/20 12:00 18 Endotracheal Tube 65 04/08/20 12:00 18 140/71 Endotracheal Tube 65 04/08/20 12:00 65 04/08/20 11:26 67 04/08/20 11:00 81 23 164/81 (108) 98 04/08/20 11:00 23 Endotracheal Tube 65 04/08/20 11:00 23 164/81 Endotracheal Tube 65 04/08/20 10:55 89 21 65 04/08/20 10:00 19 Endotracheal Tube 65 04/08/20 10:00 19 147/77 Endotracheal Tube 65 04/08/20 10:00 65 18 147/77 (100) 99 04/08/20 09:10 93 20 65 04/08/20 09:00 20 65 04/08/20 09:00 20 153/70 Endotracheal Tube 65 04/08/20 09:00 78 19 153/70 (97) 93 04/08/20 08:40 91 155/82 04/08/20 08:00 65 04/08/20 08:00 Mechanical Ventilator 04/08/20 08:00 98.4 101 22 176/87 (116) 90 04/08/20 08:00 23 Endotracheal Tube 65 04/08/20 08:00 23 176/87 Endotracheal Tube 65 04/08/20 07:40 114 Intake and Output 04/08/20 04/09/20 19:00 07:00 Intake Total 1998 ml 2074 ml Output Total 480 ml 840 ml Balance 1518 ml 1234 ml Free Water 300 ml 150 ml IV Total 1098 ml 1374 ml Tube Feeding 600 ml 550 ml Output Urine Total 380 ml 740 ml Stool Total 100 ml 100 ml Laboratory Tests 04/08/20 16:53: POC Whole Blood Glucose 122H 04/09/20 01:58: POC Whole Blood Glucose [Pending] 04/09/20 04:25: White Blood Count 4.7L, Red Blood Count 3.39L, Hemoglobin 9.7L, Hematocrit 30.9L , Mean Corpuscular Volume 91, Mean Corpuscular Hemoglobin 28.7, Mean Corpuscular Hemoglobin Concent 31.5L, Red Cell Distribution Width 17.0H, Platelet Count 208, Mean Platelet Volume 6.9, Neutrophils (%) (Auto) , Lymphocytes (%) (Auto) , Monocytes (%) (Auto) , Eosinophils (%) (Auto) , Basophils (%) (Auto) , Neutrophils % (Manual) [Pending], Lymphocytes % (Manual) [Pending], Platelet Estimate [Pending], Platelet Morphology [Pending], Sodium Level 146H, Potassium Level 4.9, Chloride Level 110H, Carbon Dioxide Level 34H, Anion Gap 2L, Blood Urea Nitrogen 22H, Creatinine 0.4L, Estimat Glomerular Filtration Rate > 60, Glucose Level 141H, Calcium Level 7.9L, Phosphorus Level 2.4L, Magnesium Level 2.2, Total Bilirubin 0.9, Aspartate Amino Transf (AST/SGOT) 143H, Alanine Aminotransferase (ALT/SGPT) 416H, Alkaline Phosphatase 244H, C-Reactive Protein, Quantitative 1.1H, Pro-B-Type Natriuretic Peptide 773H, Total Protein 4.5L, Albumin 1.7L, Globulin 2.8, Albumin/Globulin Ratio 0.6L Height (Feet): 5 Height (Inches): 10.00 Weight (Pounds): 240 General Appearance: no apparent distress EENT: normal ENT inspection Neck: supple Cardiovascular: normal rate Respiratory/Chest: decreased breath sounds Abdomen: normal bowel sounds, non tender, soft Extremities: non-tender Assessment/Plan Status: not improved, unchanged Assessment/Plan: hep c + but neg RNA intubated OGTF reglan 10 mg repeat labs fu LFTS will fu Da Quintero MD Apr 09, 2020 07:36
--- NOTE | 2020-04-09 08:00 | NUR ---
NURSE NOTES: REPORT RECEIVED FROM RN SAM Fi O2 change to 60% from 65% and PEEP from 8 to 5. Tolerating well. EKG Rhythm: Sinus Rhythm Rhythm change?: N Notified?: Y -Dr.Toluie INTERIANO Response: Message left await call Latest Hassan Fall Score: 35 Fall Risk: Medium Risk Safety Measures: Call light Within Reach, Bed Alarm Zone 3, Side Rails Side Rails x3, Bed position Low and Locked. Fall Precautions: Yellow Socks Yellow Gown Door Sign Patient Fall Education
--- NOTE | 2020-04-09 08:34 | NUR ---
RESPIRATORY NOTE: FiO2 titrated to 65%. PT tolerating well. Will continue to monitor.
[2020-04-09] MEDS: fentaNYL 2500mcg/NS 250ml 250 ML IV SCH ×3 (08:57→22:35)
[2020-04-09] MEDS: Vitamin D 1000 units Tab GT SCH (09:00)
[2020-04-09] MEDS: Pantoprazole Inj IVP SCH ×2 (09:00→21:29)
[2020-04-09] MEDS: Enoxaparin 80mg Inj SUBQ SCH ×2 (09:00→21:00)
--- NOTE | 2020-04-09 10:04 | Nephrology Progress Note ---
Assessment/Plan Problem List: (1) Dehydration (2) Electrolyte imbalance (3) COVID-19 virus infection (4) Pneumonia (5) DMII (diabetes mellitus, type 2) (6) Protein malnutrition Assessment Azotemia, hypernatremia Hypoalbuminemia Staff Otilia bacteremia COVID-19 isolation, pneumonia, bilateral infiltrate Hypertension Diabetes mellitus History of smoking Plan April 09: Status quo. Labs reviewed. Stable from renal standpoint of view. Continue per consultants. April 08: Discussed with RN. Labs reviewed. Clinically improving. Requires lower PEEP. Continue per pulmonary. Continue to monitor renal parameters. April 07: Remains full code and on ventilator. Labs reviewed. Renal parameters and electrolytes stable. Continue per consultants. Blood pressure marginally improved. April 06: Full code. On ventilator. Blood pressure 80-90 systolic. IV Lasix discontinued. Free water through tube feeding ordered. Continue to monitor electrolytes and serum sodium. Down on fentanyl as possible. Discussed with PRIYANKA Brown. Clonidine patch discontinued. April 05: Status quo. Remains full code. Remains intubated. Labs reviewed. Renal parameters stable. Serum sodium 150 unchanged. Continue per consultants. April 04: Remains intubated and on ventilator. Remains full code. Labs reviewed. Serum sodium 150 unchanged. Renal parameters stable. Continue per ID and pulmonary. April 03: Intubated. On ventilator. Full code. Labs reviewed. Serum sodium 150 unchanged. Continue to monitor renal parameters. Continue per pulmonary and ID. April 02: Full code. On ventilator. Discussed with RN. Serum sodium slightly higher. Will cut down on IV Lasix. Continue per consultants. Continue to monitor renal parameters and electrolytes. April 01: Full code. Remains on ventilator. Labs reviewed. Stable from renal standpoint of view. Continue per consultants. March 31: Full code . Remains intubated on ventilator. Labs reviewed. Patient appears toxic. Discussed with RN. Maintenance IV discontinued. Medication list reviewed. Blood pressure medication stopped due to low blood pressure. Levemir insulin stopped. Continue monitor blood sugar and sliding scale insulin. March 30: Full code. On ventilator. Labs reviewed. Clonidine patch dose increased. Lasix increased. 3% saline 1 time ordered. Continue to monitor electrolytes and renal parameters. March 29: Remains full code. On mechanical ventilation. On tube feeding. Will DC TPN. Will start on maintenance IV fluid. Continue to monitor renal parameters. March 28: On BiPAP. Full code. On TPN. Labs reviewed. Discussed with pharmacy. Continue as is. Watch serum potassium. March 27: Remains on BiPAP. No chemistry panel done today. Full code. On TPN. Will check lab tomorrow. March 26: Remains on BiPAP. Remains on TPN. Labs reviewed. Electrolytes and chemistries within normal limits. Continue as is. March 25: Remains on TPN. Labs reviewed. Discussed with pharmacy. Change IV Protonix to p.o. Continue 3% saline infusion with Lasix. Patient full code. March 24: Continue to be on TPN. Labs are reviewed. Aim to collect electrolytes. Discussed with pharmacy. Continue current consultants. March 23: Continues to be on TPN. Labs reviewed. Electrolytes and chemistries all acceptable. Discussed with pharmacy. Continue current management. March 22: On TPN. Labs reviewed. Low sodium noted. 3% saline to be continued. Continue to monitor electrolytes. Discussed with pharmacy. March 21: On TPN. Labs reviewed. Continue 3% saline and Lasix for mild hyponatremia. Continue TPN as these. Discussed with pharmacy. March 20: Remains on TPN. Labs reviewed. Serum sodium higher on IV Lasix and 3% saline infusion. Continue TPN as is. Continue to monitor renal parameters and electrolytes. Discussed with Dr. Mata March 19: Remains on TPN. Labs reviewed. Serum sodium 128. Will give 3% saline with IV Lasix. Continue to monitor electrolytes. No change in TPN composition. Discussed with pharmacy. March 18: Remains on TPN. Labs reviewed. Discussed with pharmacist. Will give 3 doses of IV Lasix 20 mg every 8 hours. Continue to monitor serum sodium electrolytes uric acid. White blood cells down. Continue per consultants. March 17: On TPN. Labs reviewed. Discussed with pharmacist. Sodium content increase. Continue to monitor CMP. Patient continues to have leukocytosis. March 16: On TPN. Labs reviewed. Discussed with pharmacist. Appropriate changes made. Continue to monitor electrolytes. March 15: Remains on TPN. Labs reviewed. Discussed with pharmacist. Continue per current management. March 14: Remains on TPN. Labs reviewed, stable. Vitamin D level low, replacement ordered. Continue to monitor electrolytes and renal parameters. March 13: Patient remains on TPN. Discussed with pharmacist. TPN's sodium content adjusted. Labs reviewed. Continue to monitor electrolytes. Blood pressure remains stable. Continue per consultants. March 12: Patient on TPN. Labs reviewed. CPK remains elevated. Abnormal electrolytes and high blood sugar discussed with pharmacist and TPN adjusted. Continue to monitor labs. Oral Protonix added. Ibuprofen discontinued. Can continue to monitor electrolytes and chemistries. Levemir for high blood sugar added. March 11: Patient on TPN. Labs as of 11:15 AM is still pending. Continue per current treatment plan. Will check labs and adjust TPN as needed. Continue per consultants. March 10: Patient on TPN. Labs reviewed. Electrolytes overall stable. CPK is elevated. Will monitor electrolyte, CPK level, lipid panel. Continue per consultants. Discussed with pharmacist. Discussed with RN. Nutritional evaluation noted. Previously: D5W 100 cc an hour Monitor electrolytes renal parameters TPN and Intralipid ordered Will follow Continue per consultants Dietary consult requested Subjective ROS Limited/Unobtainable: Yes Objective Objective Last 24 Hour Vital Signs Date Time Temp Pulse Resp B/P (MAP) Pulse Ox O2 Delivery O2 Flow Rate FiO2 04/09/20 08:57 20 116/82 04/09/20 08:00 65 04/09/20 08:00 82 18 94 04/09/20 08:00 75 18 93/61 (72) 95 04/09/20 08:00 Mechanical Ventilator 04/09/20 07:30 75 18 93/61 (72) 95 04/09/20 07:30 75 18 93/61 (72) 95 04/09/20 07:00 20 Mechanical Ventilator 70 04/09/20 07:00 20 113/68 Mechanical Ventilator 70 04/09/20 07:00 77 18 99/64 (76) 95 04/09/20 07:00 77 18 99/64 (76) 95 04/09/20 06:30 78 18 113/69 (84) 96 04/09/20 06:30 78 18 113/69 (84) 96 04/09/20 06:30 78 18 113/69 (84) 96 04/09/20 06:00 79 18 95/60 (72) 94 04/09/20 06:00 20 Mechanical Ventilator 70 04/09/20 06:00 20 113/65 Mechanical Ventilator 70 04/09/20 06:00 79 18 95/60 (72) 94 04/09/20 06:00 79 18 95/60 (72) 94 04/09/20 05:30 84 18 101/65 (77) 94 04/09/20 05:30 84 18 101/65 (77) 94 04/09/20 05:30 84 18 101/65 (77) 94 04/09/20 05:00 83 18 116/63 (80) 91 04/09/20 05:00 83 18 116/63 (80) 91 04/09/20 05:00 20 Mechanical Ventilator 65 04/09/20 05:00 20 116/69 Mechanical Ventilator 70 04/09/20 05:00 83 18 116/63 (80) 91 04/09/20 04:53 81 18 114/63 (80) 89 04/09/20 04:53 81 18 114/63 (80) 89 04/09/20 04:45 76 18 114/63 (80) 92 04/09/20 04:40 74 18 79/43 (55) 92 04/09/20 04:40 74 18 79/43 (55) 92 04/09/20 04:30 73 18 114/63 (80) 92 04/09/20 04:30 73 18 75/43 (54) 92 04/09/20 04:30 73 18 75/43 (54) 92 04/09/20 04:15 73 18 92 04/09/20 04:00 99.8 70 10 100/67 (78) 95 04/09/20 04:00 70 10 100/67 (78) 95 04/09/20 04:00 70 10 100/67 (78) 95 04/09/20 04:00 65 04/09/20 04:00 20 Mechanical Ventilator 65 04/09/20 04:00 20 125/73 Mechanical Ventilator 65 04/09/20 04:00 Mechanical Ventilator 04/09/20 03:45 69 15 95 04/09/20 03:30 73 11 96/67 (77) 95 04/09/20 03:30 73 11 96/67 (77) 95 04/09/20 03:30 73 11 96/67 (77) 95 04/09/20 03:15 76 17 95 04/09/20 03:01 78 04/09/20 03:00 20 Mechanical Ventilator 65 04/09/20 03:00 20 117/67 Mechanical Ventilator 65 04/09/20 03:00 78 18 91/63 (72) 95 04/09/20 03:00 78 18 91/63 (72) 95 04/09/20 03:00 78 18 91/63 (72) 95 04/09/20 02:45 78 12 95 04/09/20 02:30 79 1 98/64 (75) 94 04/09/20 02:30 79 1 98/64 (75) 94 04/09/20 02:30 79 1 98/64 (75) 94 04/09/20 02:15 78 16 94 04/09/20 02:00 83 17 101/72 (82) 94 04/09/20 02:00 83 17 101/72 (82) 94 04/09/20 02:00 20 Mechanical Ventilator 65 04/09/20 02:00 20 116/71 Mechanical Ventilator 65 04/09/20 02:00 83 17 101/72 (82) 94 04/09/20 01:55 18 Mechanical Ventilator 65 04/09/20 01:45 71 18 95 04/09/20 01:30 68 18 108/68 (81) 96 04/09/20 01:30 68 18 108/68 (81) 96 04/09/20 01:30 68 18 108/68 (81) 96 04/09/20 01:15 70 18 95 04/09/20 01:00 67 18 115/73 (87) 96 04/09/20 01:00 67 18 115/73 (87) 96 04/09/20 01:00 20 Mechanical Ventilator 65 04/09/20 01:00 20 108/63 Mechanical Ventilator 65 04/09/20 01:00 67 18 115/73 (87) 96 04/09/20 00:52 69 18 70 04/09/20 00:45 68 18 97 04/09/20 00:30 68 18 106/67 (80) 96 04/09/20 00:30 68 18 106/67 (80) 96 04/09/20 00:30 68 18 106/67 (80) 96 04/09/20 00:15 68 18 97 04/09/20 00:00 Mechanical Ventilator 04/09/20 00:00 70 04/09/20 00:00 69 18 109/69 (82) 97 04/09/20 00:00 20 Mechanical Ventilator 70 2/7/21 00:00 20 109/62 Mechanical Ventilator 70 04/09/20 00:00 99.2 69 18 109/69 (82) 97 04/09/20 00:00 69 18 109/69 (82) 97 04/08/20 23:45 68 18 97 04/08/20 23:30 69 18 109/75 (86) 97 04/08/20 23:29 18 114/73 Mechanical Ventilator 70 04/08/20 23:15 67 18 97 04/08/20 23:11 69 04/08/20 23:00 70 18 114/73 (87) 97 04/08/20 23:00 18 Mechanical Ventilator 70 04/08/20 22:45 70 18 97 04/08/20 22:30 70 18 119/82 (94) 97 04/08/20 22:15 72 19 97 04/08/20 22:00 18 Mechanical Ventilator 70 04/08/20 22:00 18 109/78 Mechanical Ventilator 70 04/08/20 22:00 73 18 109/78 (88) 96 04/08/20 21:45 74 18 95 04/08/20 21:30 80 18 104/78 (87) 95 04/08/20 21:15 77 18 97 04/08/20 21:00 85 95/68 04/08/20 21:00 18 Mechanical Ventilator 80 04/08/20 21:00 18 95/68 Mechanical Ventilator 80 04/08/20 21:00 80 18 95/68 (77) 95 04/08/20 20:45 83 16 94 04/08/20 20:30 88 17 85/58 (67) 95 04/08/20 20:15 95 18 93 04/08/20 20:00 96.8 99 20 124/82 (96) 91 04/08/20 20:00 Mechanical Ventilator 04/08/20 20:00 24 Mechanical Ventilator 80 04/08/20 20:00 24 211/109 Mechanical Ventilator 80 04/08/20 20:00 80 04/08/20 19:53 109 17 151/91 (111) 86 04/08/20 19:45 22 75 04/08/20 19:45 106 22 200/109 (139) 98 04/08/20 19:30 112 21 215/91 (132) 97 04/08/20 19:20 22 Mechanical Ventilator 75 04/08/20 19:16 102 04/08/20 19:00 98 24 174/89 (117) 91 04/08/20 19:00 127 24 70 04/08/20 19:00 24 Endotracheal Tube 60 04/08/20 19:00 24 174/89 Endotracheal Tube 60 04/08/20 18:00 100 20 166/82 (110) 88 04/08/20 18:00 20 Endotracheal Tube 60 04/08/20 18:00 20 166/82 Endotracheal Tube 60 04/08/20 17:00 98.4 94 18 137/62 (87) 91 04/08/20 17:00 89 20 70 04/08/20 17:00 18 Endotracheal Tube 60 04/08/20 17:00 18 137/62 Endotracheal Tube 60 04/08/20 16:00 88 04/08/20 16:00 60 04/08/20 16:00 Mechanical Ventilator 04/08/20 16:00 88 17 120/65 (83) 91 04/08/20 16:00 17 Endotracheal Tube 60 04/08/20 16:00 17 120/65 Endotracheal Tube 60 04/08/20 15:44 88 04/08/20 15:00 17 Endotracheal Tube 60 04/08/20 15:00 17 178/91 Endotracheal Tube 60 04/08/20 15:00 123 18 178/91 (120) 84 04/08/20 15:00 95 20 70 04/08/20 14:30 70 04/08/20 14:00 107 19 196/83 (120) 89 04/08/20 14:00 19 Endotracheal Tube 60 04/08/20 14:00 19 196/83 Endotracheal Tube 60 04/08/20 13:47 21 129/81 Endotracheal Tube 60 04/08/20 13:46 18 142/62 Endotracheal Tube 60 04/08/20 13:45 60 04/08/20 13:10 105 19 65 04/08/20 13:00 98.2 83 18 142/62 (88) 95 04/08/20 13:00 18 Endotracheal Tube 65 04/08/20 13:00 18 142/62 Endotracheal Tube 65 04/08/20 12:34 18 Endotracheal Tube 65 04/08/20 12:00 Mechanical Ventilator 04/08/20 12:00 73 18 140/71 (94) 97 04/08/20 12:00 18 Endotracheal Tube 65 04/08/20 12:00 18 140/71 Endotracheal Tube 65 04/08/20 12:00 65 04/08/20 11:26 67 04/08/20 11:00 81 23 164/81 (108) 98 04/08/20 11:00 23 Endotracheal Tube 65 04/08/20 11:00 23 164/81 Endotracheal Tube 65 04/08/20 10:55 89 21 65 Intake and Output 04/08/20 04/09/20 19:00 07:00 Intake Total 1998 ml 2294 ml Output Total 480 ml 900 ml Balance 1518 ml 1394 ml Intake Oral 0 ml Free Water 300 ml 300 ml IV Total 1098 ml 1374 ml Tube Feeding 600 ml 600 ml Blood Product 0 ml Other 20 ml Output Urine Total 380 ml 800 ml Stool Total 100 ml 100 ml # Voids 2 # Bowel Movements 1 Current Medications Medications (Trade) Dose Ordered Sig/Dennis Route PRN Reason Start Time Stop Time Status Last Admin Dose Admin Amlodipine Besylate (Norvasc) 2.5 mg EVERY 12 HOURS NG 04/08/20 21:00 05/06/20 18:44 Bisacodyl (Dulcolax) 10 mg Q12H PRN RECTAL Constipation 03/18/20 16:45 06/16/20 16:44 Chlorhexidine Gluconate (Marlen-Hex 2%) 1 applic DAILY@2000 TOPIC 03/30/20 20:00 06/28/20 19:59 04/08/20 19:34 Dextrose (Dextrose 50%) 25 ml Q30M PRN IV Hypoglycemia 03/29/20 20:45 06/27/20 20:44 Dextrose (Dextrose 50%) 50 ml Q30M PRN IV Hypoglycemia 03/29/20 20:45 06/27/20 20:44 Enoxaparin Sodium (Lovenox) 80 mg EVERY 12 HOURS SUBQ 04/06/20 21:00 07/05/20 20:59 04/09/20 09:00 Fentanyl Citrate 250 ml @ 1 mls/hr Q24H IV 04/04/20 20:00 04/09/20 19:59 04/09/20 08:57 Hydralazine HCl (Apresoline) 10 mg Q4H PRN IV For High Blood Pressure 03/30/20 12:15 06/28/20 12:14 04/03/20 21:00 Insulin Aspart (NovoLOG) Q6HR SUBQ 03/30/20 00:00 06/28/20 00:00 04/09/20 02:00 Labetalol HCl (Normodyne) 10 mg Q4H PRN IV sbp greater tahtn 160 03/28/20 17:30 04/27/20 17:29 Methylprednisolone Sodium Succinate (Solu-MEDROL) 40 mg EVERY 8 HOURS IVP 03/22/20 14:00 06/20/20 13:59 04/09/20 06:33 Metoclopramide HCl (Reglan) 10 mg Q6H IVP 03/30/20 15:00 04/29/20 14:59 04/09/20 09:00 Micafungin Sodium 100 mg/Sodium Chloride 100 ml @ 100 mls/hr Q24H IVPB 03/29/20 15:00 04/11/20 23:59 04/08/20 15:48 Midazolam HCl 100 mg/Sodium Chloride 200 ml @ 0 mls/hr Q24H PRN IV Agitation 04/08/20 22:00 04/10/20 21:59 04/09/20 01:55 Pantoprazole (Protonix) 40 mg EVERY 12 HOURS IVP 04/01/20 21:00 05/01/20 20:59 04/09/20 09:00 Sodium Chloride 1,000 ml @ 60 mls/hr [id number] IV 04/07/20 21:00 05/07/20 20:59 04/09/20 06:33 Trimethoprim/ Sulfamethoxazole (Bactrim-DS) 1 tab Q24H ORAL 03/29/20 17:00 04/11/20 16:59 04/08/20 17:39 Vitamin D (Vitamin D) 10,000 unit DAILY GT 04/07/20 09:00 04/14/20 08:59 04/08/20 08:39 Laboratory Tests 04/08/20 16:53: POC Whole Blood Glucose 122H 04/09/20 01:58: POC Whole Blood Glucose [Pending] 04/09/20 04:25: White Blood Count 4.7L, Red Blood Count 3.39L, Hemoglobin 9.7L, Hematocrit 30.9L , Mean Corpuscular Volume 91, Mean Corpuscular Hemoglobin 28.7, Mean Corpuscular Hemoglobin Concent 31.5L, Red Cell Distribution Width 17.0H, Platelet Count 208, Mean Platelet Volume 6.9, Neutrophils (%) (Auto) , Lymphocytes (%) (Auto) , Monocytes (%) (Auto) , Eosinophils (%) (Auto) , Basophils (%) (Auto) , Differential Total Cells Counted 100, Neutrophils % (Manual) 87H, Lymphocytes % (Manual) 8L, Monocytes % (Manual) 5, Eosinophils % (Manual) 0, Basophils % (Manual) 0, Band Neutrophils 0, Platelet Estimate Adequate, Platelet Morphology Normal, Hypochromasia 1+, Anisocytosis 1+, Sodium Level 146H, Potassium Level 4.9, Chloride Level 110H, Carbon Dioxide Level 34H, Anion Gap 2L, Blood Urea Nitrogen 22H, Creatinine 0.4L, Estimat Glomerular Filtration Rate > 60, Glucose Level 141H, Calcium Level 7.9L, Phosphorus Level 2.4L, Magnesium Level 2.2, Total Bilirubin 0.9, Aspartate Amino Transf (AST/SGOT) 143H, Alanine Aminotransferase (ALT/SGPT) 416H, Alkaline Phosphatase 244H, C-Reactive Protein, Quantitative 1.1H, Pro-B-Type Natriuretic Peptide 773H, Total Protein 4.5L, Albumin 1.7L, Globulin 2.8, Albumin/Globulin Ratio 0.6L Height (Feet): 5 Height (Inches): 10.00 Weight (Pounds): 240 General Appearance: no apparent distress EENT: other - Intubated on ventilator Cardiovascular: normal rate Respiratory/Chest: decreased breath sounds Abdomen: distended Rubin Cooper MD Apr 09, 2020 10:04
--- NOTE | 2020-04-09 11:23 | Pulmonology Progress Note ---
Subjective ROS Limited/Unobtainable: No Interval Events: Intubated 03/28/20 Constitutional: Denies: fever HEENT: Repors: no symptoms Respiratory: Reports: dry cough, shortness of breath Cardiovascular: Reports: no symptoms Gastrointestinal/Abdominal: Denies: nausea, vomiting, diarrhea Psychiatric: Reports: other Skin: Reports: rash Musculoskeletal: Reports: other - NA Allergies: Coded Allergies: No Known Allergies (Unverified , 02/05/20) Objective Last 24 Hour Vital Signs Date Time Temp Pulse Resp B/P (MAP) Pulse Ox O2 Delivery O2 Flow Rate FiO2 04/09/20 10:15 81 18 93 04/09/20 10:00 82 18 102/61 (75) 93 04/09/20 09:45 82 18 93 04/09/20 09:30 81 18 103/58 (73) 93 04/09/20 09:15 79 18 93 04/09/20 09:00 80 18 97/58 (71) 93 04/09/20 09:00 85 102/60 04/09/20 09:00 100 18 94 04/09/20 08:57 20 116/82 04/09/20 08:45 84 18 93 04/09/20 08:34 88 65 04/09/20 08:30 88 18 121/68 (85) 94 04/09/20 08:15 86 18 94 04/09/20 08:00 65 04/09/20 08:00 82 18 94 04/09/20 08:00 75 18 93/61 (72) 95 04/09/20 08:00 Mechanical Ventilator 04/09/20 08:00 82 18 115/67 (83) 94 04/09/20 07:30 75 18 93/61 (72) 95 04/09/20 07:30 75 18 93/61 (72) 95 04/09/20 07:10 87 18 70 04/09/20 07:00 20 Mechanical Ventilator 70 04/09/20 07:00 20 113/68 Mechanical Ventilator 70 04/09/20 07:00 77 18 99/64 (76) 95 04/09/20 07:00 77 18 99/64 (76) 95 04/09/20 06:30 78 18 113/69 (84) 96 04/09/20 06:30 78 18 113/69 (84) 96 04/09/20 06:30 78 18 113/69 (84) 96 04/09/20 06:00 79 18 95/60 (72) 94 04/09/20 06:00 20 Mechanical Ventilator 70 04/09/20 06:00 20 113/65 Mechanical Ventilator 70 04/09/20 06:00 79 18 95/60 (72) 94 04/09/20 06:00 79 18 95/60 (72) 94 04/09/20 05:30 84 18 101/65 (77) 94 04/09/20 05:30 84 18 101/65 (77) 94 04/09/20 05:30 84 18 101/65 (77) 94 04/09/20 05:00 83 18 116/63 (80) 91 04/09/20 05:00 83 18 116/63 (80) 91 04/09/20 05:00 20 Mechanical Ventilator 65 04/09/20 05:00 20 116/69 Mechanical Ventilator 70 04/09/20 05:00 83 18 116/63 (80) 91 04/09/20 04:53 81 18 114/63 (80) 89 04/09/20 04:53 81 18 114/63 (80) 89 04/09/20 04:45 76 18 114/63 (80) 92 04/09/20 04:40 74 18 79/43 (55) 92 04/09/20 04:40 74 18 79/43 (55) 92 04/09/20 04:30 73 18 114/63 (80) 92 04/09/20 04:30 73 18 75/43 (54) 92 04/09/20 04:30 73 18 75/43 (54) 92 04/09/20 04:15 73 18 92 04/09/20 04:00 99.8 70 10 100/67 (78) 95 04/09/20 04:00 70 10 100/67 (78) 95 04/09/20 04:00 70 10 100/67 (78) 95 04/09/20 04:00 65 04/09/20 04:00 20 Mechanical Ventilator 65 04/09/20 04:00 20 125/73 Mechanical Ventilator 65 04/09/20 04:00 Mechanical Ventilator 04/09/20 03:45 69 15 95 04/09/20 03:30 73 11 96/67 (77) 95 04/09/20 03:30 73 11 96/67 (77) 95 04/09/20 03:30 73 11 96/67 (77) 95 04/09/20 03:15 76 17 95 04/09/20 03:01 78 04/09/20 03:00 20 Mechanical Ventilator 65 04/09/20 03:00 20 117/67 Mechanical Ventilator 65 04/09/20 03:00 78 18 91/63 (72) 95 04/09/20 03:00 78 18 91/63 (72) 95 04/09/20 03:00 78 18 91/63 (72) 95 04/09/20 02:45 78 12 95 04/09/20 02:30 79 1 98/64 (75) 94 04/09/20 02:30 79 1 98/64 (75) 94 04/09/20 02:30 79 1 98/64 (75) 94 04/09/20 02:15 78 16 94 04/09/20 02:00 83 17 101/72 (82) 94 04/09/20 02:00 83 17 101/72 (82) 94 04/09/20 02:00 20 Mechanical Ventilator 65 04/09/20 02:00 20 116/71 Mechanical Ventilator 65 04/09/20 02:00 83 17 101/72 (82) 94 04/09/20 01:55 18 Mechanical Ventilator 65 04/09/20 01:45 71 18 95 04/09/20 01:30 68 18 108/68 (81) 96 04/09/20 01:30 68 18 108/68 (81) 96 04/09/20 01:30 68 18 108/68 (81) 96 04/09/20 01:15 70 18 95 04/09/20 01:00 67 18 115/73 (87) 96 04/09/20 01:00 67 18 115/73 (87) 96 04/09/20 01:00 20 Mechanical Ventilator 65 04/09/20 01:00 20 108/63 Mechanical Ventilator 65 04/09/20 01:00 67 18 115/73 (87) 96 04/09/20 00:52 69 18 70 04/09/20 00:45 68 18 97 04/09/20 00:30 68 18 106/67 (80) 96 04/09/20 00:30 68 18 106/67 (80) 96 04/09/20 00:30 68 18 106/67 (80) 96 04/09/20 00:15 68 18 97 04/09/20 00:00 Mechanical Ventilator 04/09/20 00:00 70 04/09/20 00:00 69 18 109/69 (82) 97 04/09/20 00:00 20 Mechanical Ventilator 70 04/09/20 00:00 20 109/62 Mechanical Ventilator 70 04/09/20 00:00 99.2 69 18 109/69 (82) 97 04/09/20 00:00 69 18 109/69 (82) 97 04/08/20 23:45 68 18 97 04/08/20 23:30 69 18 109/75 (86) 97 04/08/20 23:29 18 114/73 Mechanical Ventilator 70 04/08/20 23:15 67 18 97 04/08/20 23:11 69 04/08/20 23:00 70 18 114/73 (87) 97 04/08/20 23:00 18 Mechanical Ventilator 70 04/08/20 22:45 70 18 97 04/08/20 22:30 70 18 119/82 (94) 97 04/08/20 22:15 72 19 97 04/08/20 22:00 18 Mechanical Ventilator 70 04/08/20 22:00 18 109/78 Mechanical Ventilator 70 04/08/20 22:00 73 18 109/78 (88) 96 04/08/20 21:45 74 18 95 04/08/20 21:30 80 18 104/78 (87) 95 04/08/20 21:15 77 18 97 04/08/20 21:00 85 95/68 04/08/20 21:00 18 Mechanical Ventilator 80 04/08/20 21:00 18 95/68 Mechanical Ventilator 80 04/08/20 21:00 80 18 95/68 (77) 95 04/08/20 20:45 83 16 94 04/08/20 20:30 88 17 85/58 (67) 95 04/08/20 20:15 95 18 93 04/08/20 20:00 96.8 99 20 124/82 (96) 91 04/08/20 20:00 Mechanical Ventilator 04/08/20 20:00 24 Mechanical Ventilator 80 04/08/20 20:00 24 211/109 Mechanical Ventilator 80 04/08/20 20:00 80 04/08/20 19:53 109 17 151/91 (111) 86 04/08/20 19:45 22 75 04/08/20 19:45 106 22 200/109 (139) 98 04/08/20 19:30 112 21 215/91 (132) 97 04/08/20 19:20 22 Mechanical Ventilator 75 04/08/20 19:16 102 04/08/20 19:00 98 24 174/89 (117) 91 04/08/20 19:00 127 24 70 04/08/20 19:00 24 Endotracheal Tube 60 04/08/20 19:00 24 174/89 Endotracheal Tube 60 04/08/20 18:00 100 20 166/82 (110) 88 04/08/20 18:00 20 Endotracheal Tube 60 04/08/20 18:00 20 166/82 Endotracheal Tube 60 04/08/20 17:00 98.4 94 18 137/62 (87) 91 04/08/20 17:00 89 20 70 04/08/20 17:00 18 Endotracheal Tube 60 04/08/20 17:00 18 137/62 Endotracheal Tube 60 04/08/20 16:00 88 04/08/20 16:00 60 04/08/20 16:00 Mechanical Ventilator 04/08/20 16:00 88 17 120/65 (83) 91 04/08/20 16:00 17 Endotracheal Tube 60 04/08/20 16:00 17 120/65 Endotracheal Tube 60 04/08/20 15:44 88 04/08/20 15:00 17 Endotracheal Tube 60 04/08/20 15:00 17 178/91 Endotracheal Tube 60 04/08/20 15:00 123 18 178/91 (120) 84 04/08/20 15:00 95 20 70 04/08/20 14:30 70 04/08/20 14:00 107 19 196/83 (120) 89 04/08/20 14:00 19 Endotracheal Tube 60 04/08/20 14:00 19 196/83 Endotracheal Tube 60 04/08/20 13:47 21 129/81 Endotracheal Tube 60 04/08/20 13:46 18 142/62 Endotracheal Tube 60 04/08/20 13:45 60 04/08/20 13:10 105 19 65 04/08/20 13:00 98.2 83 18 142/62 (88) 95 04/08/20 13:00 18 Endotracheal Tube 65 04/08/20 13:00 18 142/62 Endotracheal Tube 65 04/08/20 12:34 18 Endotracheal Tube 65 04/08/20 12:00 Mechanical Ventilator 04/08/20 12:00 73 18 140/71 (94) 97 04/08/20 12:00 18 Endotracheal Tube 65 04/08/20 12:00 18 140/71 Endotracheal Tube 65 04/08/20 12:00 65 04/08/20 11:26 67 Intake and Output 04/08/20 04/09/20 19:00 07:00 Intake Total 1998 ml 2294 ml Output Total 480 ml 900 ml Balance 1518 ml 1394 ml Intake Oral 0 ml Free Water 300 ml 300 ml IV Total 1098 ml 1374 ml Tube Feeding 600 ml 600 ml Blood Product 0 ml Other 20 ml Output Urine Total 380 ml 800 ml Stool Total 100 ml 100 ml # Voids 2 # Bowel Movements 1 General Appearance: WD/WN, no acute distress HEENT: normocephalic, atraumatic Respiratory: chest wall non-tender Cardiovascular: normal rate, regular rhythm Abdomen: normal bowel sounds, soft, non tender, other - obese Laboratory Tests 04/08/20 16:53: POC Whole Blood Glucose 122H 04/09/20 01:58: POC Whole Blood Glucose [Pending] 04/09/20 04:25: White Blood Count 4.7L, Red Blood Count 3.39L, Hemoglobin 9.7L, Hematocrit 30.9L , Mean Corpuscular Volume 91, Mean Corpuscular Hemoglobin 28.7, Mean Corpuscular Hemoglobin Concent 31.5L, Red Cell Distribution Width 17.0H, Platelet Count 208, Mean Platelet Volume 6.9, Neutrophils (%) (Auto) , Lymphocytes (%) (Auto) , Monocytes (%) (Auto) , Eosinophils (%) (Auto) , Basophils (%) (Auto) , Differential Total Cells Counted 100, Neutrophils % (Manual) 87H, Lymphocytes % (Manual) 8L, Monocytes % (Manual) 5, Eosinophils % (Manual) 0, Basophils % (Manual) 0, Band Neutrophils 0, Platelet Estimate Adequate, Platelet Morphology Normal, Hypochromasia 1+, Anisocytosis 1+, Sodium Level 146H, Potassium Level 4.9, Chloride Level 110H, Carbon Dioxide Level 34H, Anion Gap 2L, Blood Urea Nitrogen 22H, Creatinine 0.4L, Estimat Glomerular Filtration Rate > 60, Glucose Level 141H, Calcium Level 7.9L, Phosphorus Level 2.4L, Magnesium Level 2.2, Tot al Bilirubin 0.9, Aspartate Amino Transf (AST/SGOT) 143H, Alanine Aminotransferase (ALT/SGPT) 416H, Alkaline Phosphatase 244H, C-Reactive Protein, Quantitative 1.1H, Pro-B-Type Natriuretic Peptide 773H, Total Protein 4.5L, Albumin 1.7L, Globulin 2.8, Albumin/Globulin Ratio 0.6L Current Medications Medications (Trade) Dose Ordered Sig/Dennis Route PRN Reason Start Time Stop Time Status Last Admin Dose Admin Amlodipine Besylate (Norvasc) 2.5 mg EVERY 12 HOURS NG 04/08/20 21:00 05/06/20 18:44 Bisacodyl (Dulcolax) 10 mg Q12H PRN RECTAL Constipation 03/18/20 16:45 06/16/20 16:44 Chlorhexidine Gluconate (Marlen-Hex 2%) 1 applic DAILY@2000 TOPIC 03/30/20 20:00 06/28/20 19:59 04/08/20 19:34 Dextrose (Dextrose 50%) 25 ml Q30M PRN IV Hypoglycemia 03/29/20 20:45 06/27/20 20:44 Dextrose (Dextrose 50%) 50 ml Q30M PRN IV Hypoglycemia 03/29/20 20:45 06/27/20 20:44 Enoxaparin Sodium (Lovenox) 80 mg EVERY 12 HOURS SUBQ 04/06/20 21:00 07/05/20 20:59 04/09/20 09:00 Fentanyl Citrate 250 ml @ 1 mls/hr Q24H IV 04/04/20 20:00 04/09/20 19:59 04/09/20 08:57 Hydralazine HCl (Apresoline) 10 mg Q4H PRN IV For High Blood Pressure 03/30/20 12:15 06/28/20 12:14 04/03/20 21:00 Insulin Aspart (NovoLOG) Q6HR SUBQ 03/30/20 00:00 06/28/20 00:00 04/09/20 02:00 Labetalol HCl (Normodyne) 10 mg Q4H PRN IV sbp greater tahtn 160 03/28/20 17:30 04/27/20 17:29 Methylprednisolone Sodium Succinate (Solu-MEDROL) 40 mg EVERY 8 HOURS IVP 03/22/20 14:00 06/20/20 13:59 04/09/20 06:33 Metoclopramide HCl (Reglan) 10 mg Q6H IVP 03/30/20 15:00 04/29/20 14:59 04/09/20 09:00 Micafungin Sodium 100 mg/Sodium Chloride 100 ml @ 100 mls/hr Q24H IVPB 03/29/20 15:00 04/11/20 23:59 04/08/20 15:48 Midazolam HCl 100 mg/Sodium Chloride 200 ml @ 0 mls/hr Q24H PRN IV Agitation 04/08/20 22:00 04/10/20 21:59 04/09/20 01:55 Pantoprazole (Protonix) 40 mg EVERY 12 HOURS IVP 04/01/20 21:00 05/01/20 20:59 04/09/20 09:00 Sodium Chloride 1,000 ml @ 60 mls/hr [id number] IV 04/07/20 21:00 05/07/20 20:59 04/09/20 06:33 Trimethoprim/ Sulfamethoxazole (Bactrim-DS) 1 tab Q24H ORAL 03/29/20 17:00 04/11/20 16:59 04/08/20 17:39 Vitamin D (Vitamin D) 10,000 unit DAILY GT 04/07/20 09:00 04/14/20 08:59 04/08/20 08:39 Assessment/Plan Assessment/Plan Assessment/Plan 1.COVID-19 pneumonia. - Completed specific therapies - On solumedrol 2. DVT ppx - on lovenox 3. Hypertension - no longer on meds - May need pressors 4. Leukocytosis; - ID following - On abx - Budding yeast on blood CS 5. Elevated LFT - positive Hep C; treated in the past with IF 6. Respiratory failure -Intubated 03/28/20 -Family aware - Prognosis grave - Vt 750; rate 18 -On Fentanyl 7. Discussed with cardiology -No evidence for cardiac dysfunction or PE -tachycardic; will increase sedation 8. AMS -back on sedation - has apparent left arm paresis - Will consider CT brain when more stable S/p new PICC line On abx Slowly improving oxygenation Noted left upper extremity swelling. Has DVT; on full dose Lovenox Continue sedation, DC propofol given high triglycerides. Continue fentanyl and Versed. Oxygenation improving FiO2 65% PEEP8 John Mata MD Apr 09, 2020 11:23
--- NOTE | 2020-04-09 12:36 | Diagnostic Imaging Report ---
FILM CXR 1 VIEW INDICATION: Infection COMPARISON: April 05, 2020 FINDINGS: Single frontal view demonstrates a normal cardiomediastinal silhouette. Endotracheal tube in place with tip above the sunny. Elevation of the right hemidiaphragm. Interstitial prominence with bilateral lower lobe infiltrates. Lung bases appear worse from the prior exam. Small right effusion. Right-sided PICC line with tip in the superior vena cava. Enteric tube in place. IMPRESSION: Interstitial prominence and bilateral lower lobe pneumonia with worsening appearance from the prior study.
--- NOTE | 2020-04-09 14:13 | Infectious Diseases Prog Note ---
Assessment/Plan Assessment/Plan ASSESSMENT AND PLAN: 1. staph aureus bacteremia/mssa, ? source, ? endocarditis, sepsis, leukocytosis, ? CAP, PJP less likely with HIV negative and steroids < 1 month covid-19 +, hypoxia, sob, chest x-ray worse, ? PE, ? HCAP/aspiration pna recurrent fevers - ? fungal, ? OI leukocytosis noted - ? new infection, ? steroids cocci serology negative, legionella negative, beta 1,3 D-glucan wnl, Il-16 - 13.7 elevated LFT's - ? TPN, ? Bactrim - US without gallbladder disease, + steatosis - d/w GI - TPN more likely than bactrim as etiology e.coli uti - s/p treatment with rocephin, s/p treatment for presumptive pneumocystis pna + yeast in blood, fungemia, ? line infection, sepsis, shock, pna, sc-nf - s/p meropenem - micafungin - day # 7/14 (post negative blood cultures - 04/02/20) - picc line changed - surveillance blood cultures negative - bactrim for pneumocystis prophylaxis, s/p pneumocystis treatment - s/p tx for mssa bacteremia and ? endocarditis - monitor hypoxia, labs and chest x-ray - some clinical improvement with decrease in fio2 and now off pressors - guarded condition - monitor fevers - weaning per pulmonary medicine 2. covid-19 isolation 3. Hypertension history. Blood pressure treatment primary care team. 4. Elevated blood sugars. Blood sugar treatment per primary care team. 5. No known drug allergies. 6. Social history is positive for smoking. 7. Family history is noncontributory. 8. MAR was noted. 9. Case was discussed with RN. 10. Continue treatment per primary consultants. Subjective Constitutional: Reports: fatigue, other - on vent HEENT: Reports: congestion Respiratory: Reports: shortness of breath Cardiovascular: Denies: chest pain Gastrointestinal/Abdominal: Denies: nausea, vomiting, diarrhea Genitourinary: Reports: other - + joseph Neurologic: Reports: other - responsive ; Denies: headache Psychiatric: Reports: other - NA Skin: Denies: rash Hematologic: Denies: bleeding Musculoskeletal: Denies: pain Allergies: Coded Allergies: No Known Allergies (Unverified , 02/05/20) Objective Last 24 Hour Vital Signs Date Time Temp Pulse Resp B/P (MAP) Pulse Ox O2 Delivery O2 Flow Rate FiO2 04/09/20 13:27 20 04/09/20 13:00 97 20 116/61 (79) 88 04/09/20 13:00 16 120/66 Mechanical Ventilator 04/09/20 12:00 65 04/09/20 12:00 87 18 92 04/09/20 12:00 16 04/09/20 12:00 20 110/65 Mechanical Ventilator 04/09/20 12:00 Mechanical Ventilator 04/09/20 11:00 20 04/09/20 11:00 20 102/60 Mechanical Ventilator 65 04/09/20 11:00 82 18 93 04/09/20 10:59 85 18 65 04/09/20 10:15 81 18 93 04/09/20 10:00 82 18 102/61 (75) 93 04/09/20 10:00 20 04/09/20 10:00 16 102/60 Mechanical Ventilator 65 04/09/20 09:45 82 18 93 04/09/20 09:30 81 18 103/58 (73) 93 04/09/20 09:15 79 18 93 04/09/20 09:00 80 18 97/58 (71) 93 04/09/20 09:00 85 102/60 04/09/20 09:00 100 18 94 04/09/20 08:57 20 04/09/20 08:57 20 116/82 04/09/20 08:45 84 18 93 04/09/20 08:34 87 18 65 04/09/20 08:30 88 18 121/68 (85) 94 04/09/20 08:15 86 18 94 04/09/20 08:00 65 04/09/20 08:00 82 18 94 04/09/20 08:00 75 18 93/61 (72) 95 04/09/20 08:00 Mechanical Ventilator 04/09/20 08:00 82 18 115/67 (83) 94 04/09/20 07:30 75 18 93/61 (72) 95 04/09/20 07:30 75 18 93/61 (72) 95 04/09/20 07:10 87 18 70 04/09/20 07:00 20 Mechanical Ventilator 70 04/09/20 07:00 20 113/68 Mechanical Ventilator 70 04/09/20 07:00 77 18 99/64 (76) 95 04/09/20 07:00 77 18 99/64 (76) 95 04/09/20 06:30 78 18 113/69 (84) 96 04/09/20 06:30 78 18 113/69 (84) 96 04/09/20 06:30 78 18 113/69 (84) 96 04/09/20 06:00 79 18 95/60 (72) 94 04/09/20 06:00 20 Mechanical Ventilator 70 04/09/20 06:00 20 113/65 Mechanical Ventilator 70 04/09/20 06:00 79 18 95/60 (72) 94 04/09/20 06:00 79 18 95/60 (72) 94 04/09/20 05:30 84 18 101/65 (77) 94 04/09/20 05:30 84 18 101/65 (77) 94 04/09/20 05:30 84 18 101/65 (77) 94 04/09/20 05:00 83 18 116/63 (80) 91 04/09/20 05:00 83 18 116/63 (80) 91 04/09/20 05:00 20 Mechanical Ventilator 65 04/09/20 05:00 20 116/69 Mechanical Ventilator 70 04/09/20 05:00 83 18 116/63 (80) 91 04/09/20 04:53 81 18 114/63 (80) 89 04/09/20 04:53 81 18 114/63 (80) 89 04/09/20 04:45 76 18 114/63 (80) 92 04/09/20 04:40 74 18 79/43 (55) 92 04/09/20 04:40 74 18 79/43 (55) 92 04/09/20 04:30 73 18 114/63 (80) 92 04/09/20 04:30 73 18 75/43 (54) 92 04/09/20 04:30 73 18 75/43 (54) 92 04/09/20 04:30 73 18 75/43 (54) 92 04/09/20 04:15 73 18 92 04/09/20 04:15 73 18 92 04/09/20 04:00 99.8 70 10 100/67 (78) 95 04/09/20 04:00 70 10 100/67 (78) 95 04/09/20 04:00 70 10 100/67 (78) 95 04/09/20 04:00 70 10 100/67 (78) 95 04/09/20 04:00 65 04/09/20 04:00 20 Mechanical Ventilator 65 04/09/20 04:00 20 125/73 Mechanical Ventilator 65 04/09/20 04:00 Mechanical Ventilator 04/09/20 03:45 69 15 95 04/09/20 03:45 69 15 95 04/09/20 03:30 73 11 96/67 (77) 95 04/09/20 03:30 73 11 96/67 (77) 95 04/09/20 03:30 73 11 96/67 (77) 95 04/09/20 03:30 73 11 96/67 (77) 95 04/09/20 03:15 76 17 95 04/09/20 03:15 76 17 95 04/09/20 03:01 78 04/09/20 03:00 20 Mechanical Ventilator 65 04/09/20 03:00 20 117/67 Mechanical Ventilator 65 04/09/20 03:00 78 18 91/63 (72) 95 04/09/20 03:00 78 18 91/63 (72) 95 04/09/20 03:00 78 18 91/63 (72) 95 04/09/20 03:00 78 18 91/63 (72) 95 04/09/20 02:45 78 12 95 04/09/20 02:45 78 12 95 04/09/20 02:30 79 1 98/64 (75) 94 04/09/20 02:30 79 1 98/64 (75) 94 04/09/20 02:30 79 1 98/64 (75) 94 04/09/20 02:30 79 1 98/64 (75) 94 04/09/20 02:15 78 16 94 04/09/20 02:15 78 16 94 04/09/20 02:00 83 17 101/72 (82) 94 04/09/20 02:00 83 17 101/72 (82) 94 04/09/20 02:00 83 17 101/72 (82) 94 04/09/20 02:00 20 Mechanical Ventilator 65 04/09/20 02:00 20 116/71 Mechanical Ventilator 65 04/09/20 02:00 83 17 101/72 (82) 94 04/09/20 01:55 18 Mechanical Ventilator 65 04/09/20 01:45 71 18 95 04/09/20 01:45 71 18 95 04/09/20 01:30 68 18 108/68 (81) 96 04/09/20 01:30 68 18 108/68 (81) 96 04/09/20 01:30 68 18 108/68 (81) 96 04/09/20 01:30 68 18 108/68 (81) 96 04/09/20 01:15 70 18 95 04/09/20 01:15 70 18 95 04/09/20 01:00 67 18 115/73 (87) 96 04/09/20 01:00 67 18 115/73 (87) 96 04/09/20 01:00 67 18 115/73 (87) 96 04/09/20 01:00 20 Mechanical Ventilator 65 04/09/20 01:00 20 108/63 Mechanical Ventilator 65 04/09/20 01:00 67 18 115/73 (87) 96 04/09/20 00:52 69 18 70 04/09/20 00:45 68 18 97 04/09/20 00:45 68 18 97 04/09/20 00:30 68 18 106/67 (80) 96 04/09/20 00:30 68 18 106/67 (80) 96 04/09/20 00:30 68 18 106/67 (80) 96 04/09/20 00:30 68 18 106/67 (80) 96 04/09/20 00:15 68 18 97 04/09/20 00:15 68 18 97 04/09/20 00:00 Mechanical Ventilator 04/09/20 00:00 70 04/09/20 00:00 69 18 109/69 (82) 97 04/09/20 00:00 69 18 109/69 (82) 97 04/09/20 00:00 20 Mechanical Ventilator 70 04/09/20 00:00 20 109/62 Mechanical Ventilator 70 04/09/20 00:00 99.2 69 18 109/69 (82) 97 04/09/20 00:00 69 18 109/69 (82) 97 04/08/20 23:45 68 18 97 04/08/20 23:30 69 18 109/75 (86) 97 04/08/20 23:29 18 114/73 Mechanical Ventilator 70 04/08/20 23:15 67 18 97 04/08/20 23:11 69 04/08/20 23:00 70 18 114/73 (87) 97 04/08/20 23:00 18 Mechanical Ventilator 70 04/08/20 22:45 70 18 97 04/08/20 22:30 70 18 119/82 (94) 97 04/08/20 22:15 72 19 97 04/08/20 22:00 18 Mechanical Ventilator 70 04/08/20 22:00 18 109/78 Mechanical Ventilator 70 04/08/20 22:00 73 18 109/78 (88) 96 04/08/20 21:45 74 18 95 04/08/20 21:30 80 18 104/78 (87) 95 04/08/20 21:15 77 18 97 04/08/20 21:00 85 95/68 04/08/20 21:00 18 Mechanical Ventilator 80 04/08/20 21:00 18 95/68 Mechanical Ventilator 80 04/08/20 21:00 80 18 95/68 (77) 95 04/08/20 20:45 83 16 94 04/08/20 20:30 88 17 85/58 (67) 95 04/08/20 20:15 95 18 93 04/08/20 20:00 96.8 99 20 124/82 (96) 91 04/08/20 20:00 Mechanical Ventilator 04/08/20 20:00 24 Mechanical Ventilator 80 04/08/20 20:00 24 211/109 Mechanical Ventilator 80 04/08/20 20:00 80 04/08/20 19:53 109 17 151/91 (111) 86 04/08/20 19:45 22 75 04/08/20 19:45 106 22 200/109 (139) 98 04/08/20 19:30 112 21 215/91 (132) 97 04/08/20 19:20 22 Mechanical Ventilator 75 04/08/20 19:16 102 04/08/20 19:00 98 24 174/89 (117) 91 04/08/20 19:00 127 24 70 04/08/20 19:00 24 Endotracheal Tube 60 04/08/20 19:00 24 174/89 Endotracheal Tube 60 04/08/20 18:00 100 20 166/82 (110) 88 2/6/21 18:00 20 Endotracheal Tube 60 04/08/20 18:00 20 166/82 Endotracheal Tube 60 04/08/20 17:00 98.4 94 18 137/62 (87) 91 04/08/20 17:00 89 20 70 04/08/20 17:00 18 Endotracheal Tube 60 04/08/20 17:00 18 137/62 Endotracheal Tube 60 04/08/20 16:00 88 04/08/20 16:00 60 04/08/20 16:00 Mechanical Ventilator 04/08/20 16:00 88 17 120/65 (83) 91 04/08/20 16:00 17 Endotracheal Tube 60 04/08/20 16:00 17 120/65 Endotracheal Tube 60 04/08/20 15:44 88 04/08/20 15:00 17 Endotracheal Tube 60 04/08/20 15:00 17 178/91 Endotracheal Tube 60 04/08/20 15:00 123 18 178/91 (120) 84 04/08/20 15:00 95 20 70 04/08/20 14:30 70 Height (Feet): 5 Height (Inches): 10.00 Weight (Pounds): 240 General Appearance: no acute distress HEENT: normocephalic, atraumatic, anicteric Respiratory/Chest: crackles/rales, rhonchi - bilaterally Cardiovascular: normal rate, regular rhythm, no gallop/murmur Abdomen: normal bowel sounds, soft, non tender, no organomegaly, non distended Genitourinary: other - + joseph Extremities: no cyanosis Skin: no rash 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 The infiltrates are typical for Covid 19. No evidence of pulmonary embolus. CT abdomen and pelvis: IMPRESSION: 1. Scattered hepatic hypodense lesions, too small to characterize on this examination without intravenous contrast. 2. Colonic diverticulosis without evidence of acute diverticulitis. 3. Scattered enlarged mesenteric lymph nodes, presumably reactive. teral pneumonia. The infiltrates are typical for Covid 19. No evidence of pulmonary embolus. Chest x-ray - 12/19/19 - Indication: Shortness of breath Technique: One view of the chest Comparison: 02/17/2020 Findings: Interim worsening of bilateral infiltrates, particularly on the right. The heart is borderline enlarged. The pleural spaces are clear. Left arm PICC is again demonstrated Impression: Worsening bilateral infiltrates over one day, likely pneumonia CT chest - 02/19/20 - IMPRESSION: Increased extensive patchy ground-glass opacities and densities throughout the lungs, suggestive of Covid 19 infection. Chest x-ray 02/23/20 - Procedure: XRAY Chest 1v As Indication: Reason For Exam: INFECT Technique: One view of the chest Comparison: 02/20/2020 Findings: Allowing for differences in exposure technique, bilateral mid and lower lung infiltrates are probably unchanged. The heart size is normal. The pleural spaces are clear. Impression: Unchanged, over 4 days, findings as above. Chest x-ray - 02/25/20 - FINDINGS: Lungs: Interval slightly worsening bilateral airspace disease. Pleural space: Unremarkable. No pneumothorax. Heart: Unremarkable. No cardiomegaly. Mediastinum: Unremarkable. Bones/joints: Unremarkable. IMPRESSION: Interval slightly worsening bilateral airspace disease. Chest x-ray - 03/02/20 - Procedure: XRAY Chest 1v Indication: Shortness of breath Technique: One view of the chest Comparison: 02/25/2020 Findings: Bilateral interstitial and airspace infiltrates are unchanged. The heart size is normal. Left arm PICC is again demonstrated Impression: Unchanged, over one day, findings as above. Chest x-ray - 03/06/20 - Procedure: XRAY Chest 1v Indication: Shortness of breath Technique: One view of the chest Comparison: 03/02/2020 Findings: Bilateral infiltrates are unchanged. Normal heart size. Pleural spaces are clear Chest x-ray - 03/12/10 - Impression: COMPARISON: Chest radiograph March 06, 2020. FINDINGS/IMPRESSION: Improving basilar infiltrates. Follow chest radiograph recommended. The upper lung finley are clear. No pneumothorax. Stable cardiomegaly. Stable left upper extremity PICC line. anged, over 4 days, findings as above. Chest x-ray - 03/17/20 - Procedure: XRAY Chest 1v Indication: Shortness of breath Technique: One view of the chest Comparison: 03/12/2020 Findings: Left arm PICC is again demonstrated. Infiltrates are unchanged. The heart size is upper limits of normal. Impression: Unchanged, over 5 days, findings as above. Abdominal US - IMPRESSION: 1. Gallbladder is normal. 2. Hepatic steatosis. 3. 1.7 cm cyst right kidney. Impression. Chest x-ray - Procedure: XRAY Chest 1v Indication: Shortness of breath Technique: One view of the chest Comparison: 03/17/2020 Findings: Bilateral right greater than left infiltrates again demonstrated. The heart size is normal. There is a left arm PICC in good position. Impression: Unchanged, over 5 days, findings as above. Chest x-ray - 03/29/20 - Procedure: XRAY Chest 1v Indication: Cough Technique: One view of the chest Comparison: 03/28/2020 Findings: Bilateral infiltrates are unchanged or slightly worse, allowing for differences in exposure technique. The pleural spaces are clear. The heart size is normal. Stable satisfactory position of endotracheal tube, left arm PICC. Orogastric tube has retracted somewhat the position remains satisfactory. Impression: Stable to slightly worse bilateral infiltrates. Otherwise little slipcover cutter one day Chest x-ray - 03/31/20 - Procedure: XRAY Chest 1v Indication: Post endotracheal tube repositioning Technique: One view of the chest Comparison: 3 hours earlier Findings: Interim advancement of endotracheal tube, tip projecting approximately 5 cm above the sunny. Interim advancement of orogastric tube as well. Bilateral infiltrates are unchanged. Left arm PICC remains Impression: Improved and now satisfactory tube positions as described. ICU nurse Maeve notified at the time of interpretation Chest x-ray - 04/02/20 - COMPARISON: Chest x-rays dated 03/31/20 and 03/12/20. FINDINGS: Lungs: No significant change in bilateral prominent interstitial markings. The lungs are otherwise clear without focal consolidation. Pleural space: Unremarkable. The costophrenic angles are sharp. No visible pneumothorax. Heart: Unremarkable. No cardiomegaly. Mediastinum: Unremarkable. Bones/joints: Unremarkable. Tubes, lines and devices: Endotracheal tube tip 6.5 cm above the sunny. NG tube tip in the distal stomach. Telemetry leads overlie the thorax. IMPRESSION: No significant change in bilateral prominent interstitial markings. Procedure: XRAY Chest 1v Procedure: XRAY Chest 1v Reason for study: Shortness of breath 04/06/20 - Comparison films: 04/02/2020. FINDINGS: Endotracheal tube and NG tube remain in place. There is worsening of right basilar infiltrates. Some haziness in left lung base unchanged. Cardiac and mediastinal silhouette are within normal limits. CP angles are sharp. The bony thorax appear unremarkable. IMPRESSION: Worsening of right basilar infiltrate. Chest x-ray - 04/09/20 - Procedure: XRAY Chest 1v FILM CXR 1 VIEW INDICATION: Infection COMPARISON: April 05, 2020 FINDINGS: Single frontal view demonstrates a normal cardiomediastinal silhouette. Endotracheal tube in place with tip above the sunny. Elevation of the right hemidiaphragm. Interstitial prominence with bilateral lower lobe infiltrates. Lung bases appear worse from the prior exam. Small right effusion. Right-sided PICC line with tip in the superior vena cava. Enteric tube in place. IMPRESSION: Interstitial prominence and bilateral lower lobe pneumonia with worsening appearance from the prior study. Microbiology Date/Time Source Procedure Growth Status 04/02/20 16:35 Blood Blood Culture - Final NO GROWTH AFTER 5 DAYS Complete 03/29/20 18:57 Indwelling Cath Urine Culture - Final NO GROWTH AFTER 48 HOURS Complete 03/29/20 18:57 Sputum Gram Stain - Final Complete 03/29/20 18:57 Sputum Culture - Final Kat Albicans Usual Upper Respiratory Hillary Complete Laboratory Tests Test 04/08/20 16:53 04/09/20 01:58 04/09/20 04:25 POC Whole Blood Glucose 122 MG/DL (74-106) H Pending White Blood Count 4.7 K/UL (4.8-10.8) L Red Blood Count 3.39 M/UL (4.70-6.10) L Hemoglobin 9.7 G/DL (14.2-18.0) L Hematocrit 30.9 % (42.0-52.0) L Mean Corpuscular Volume 91 FL (80-99) Mean Corpuscular Hemoglobin 28.7 PG (27.0-31.0) Mean Corpuscular Hemoglobin Concent 31.5 G/DL (32.0-36.0) L Red Cell Distribution Width 17.0 % (11.6-14.8) H Platelet Count 208 K/UL (150-450) Mean Platelet Volume 6.9 FL (6.5-10.1) Neutrophils (%) (Auto) % (45.0-75.0) Lymphocytes (%) (Auto) % (20.0-45.0) Monocytes (%) (Auto) % (1.0-10.0) Eosinophils (%) (Auto) % (0.0-3.0) Basophils (%) (Auto) % (0.0-2.0) Differential Total Cells Counted 100 Neutrophils % (Manual) 87 % (45-75) H Lymphocytes % (Manual) 8 % (20-45) L Monocytes % (Manual) 5 % (1-10) Eosinophils % (Manual) 0 % (0-3) Basophils % (Manual) 0 % (0-2) Band Neutrophils 0 % (0-8) Platelet Estimate Adequate Platelet Morphology Normal Hypochromasia 1+ Anisocytosis 1+ Sodium Level 146 MMOL/L (136-145) H Potassium Level 4.9 MMOL/L (3.5-5.1) Chloride Level 110 MMOL/L (98-107) H Carbon Dioxide Level 34 MMOL/L (21-32) H Anion Gap 2 mmol/L (5-15) L Blood Urea Nitrogen 22 mg/dL (7-18) H Creatinine 0.4 MG/DL (0.55-1.30) L Estimat Glomerular Filtration Rate > 60 mL/min (>60) Glucose Level 141 MG/DL (74-106) H Calcium Level 7.9 MG/DL (8.5-10.1) L Phosphorus Level 2.4 MG/DL (2.5-4.9) L Magnesium Level 2.2 MG/DL (1.8-2.4) Total Bilirubin 0.9 MG/DL (0.2-1.0) Aspartate Amino Transf (AST/SGOT) 143 U/L (15-37) H Alanine Aminotransferase (ALT/SGPT) 416 U/L (12-78) H Alkaline Phosphatase 244 U/L (46-116) H C-Reactive Protein, Quantitative 1.1 mg/dL (0.00-0.90) H Pro-B-Type Natriuretic Peptide 773 pg/mL (0-125) H Total Protein 4.5 G/DL (6.4-8.2) L Albumin 1.7 G/DL (3.4-5.0) L Globulin 2.8 g/dL Albumin/Globulin Ratio 0.6 (1.0-2.7) L Current Medications Medications (Trade) Dose Ordered Sig/Dennis Route PRN Reason Start Time Stop Time Status Last Admin Dose Admin Amlodipine Besylate (Norvasc) 2.5 mg EVERY 12 HOURS NG 04/08/20 21:00 05/06/20 18:44 Bisacodyl (Dulcolax) 10 mg Q12H PRN RECTAL Constipation 03/18/20 16:45 06/16/20 16:44 Chlorhexidine Gluconate (Marlen-Hex 2%) 1 applic DAILY@2000 TOPIC 03/30/20 20:00 06/28/20 19:59 04/08/20 19:34 Dextrose (Dextrose 50%) 25 ml Q30M PRN IV Hypoglycemia 03/29/20 20:45 06/27/20 20:44 Dextrose (Dextrose 50%) 50 ml Q30M PRN IV Hypoglycemia 03/29/20 20:45 06/27/20 20:44 Enoxaparin Sodium (Lovenox) 80 mg EVERY 12 HOURS SUBQ 04/06/20 21:00 07/05/20 20:59 04/09/20 09:00 Fentanyl Citrate 250 ml @ 1 mls/hr Q24H IV 04/04/20 20:00 04/09/20 19:59 04/09/20 08:57 Hydralazine HCl (Apresoline) 10 mg Q4H PRN IV For High Blood Pressure 03/30/20 12:15 06/28/20 12:14 04/03/20 21:00 Insulin Aspart (NovoLOG) Q6HR SUBQ 03/30/20 00:00 06/28/20 00:00 04/09/20 02:00 Labetalol HCl (Normodyne) 10 mg Q4H PRN IV sbp greater tahtn 160 03/28/20 17:30 04/27/20 17:29 Methylprednisolone Sodium Succinate (Solu-MEDROL) 40 mg EVERY 8 HOURS IVP 03/22/20 14:00 06/20/20 13:59 04/09/20 06:33 Metoclopramide HCl (Reglan) 10 mg Q6H IVP 03/30/20 15:00 04/29/20 14:59 04/09/20 09:00 Micafungin Sodium 100 mg/Sodium Chloride 100 ml @ 100 mls/hr Q24H IVPB 03/29/20 15:00 04/11/20 23:59 04/08/20 15:48 Midazolam HCl 100 mg/Sodium Chloride 200 ml @ 0 mls/hr Q24H PRN IV Agitation 04/08/20 22:00 04/10/20 21:59 04/09/20 13:27 Pantoprazole (Protonix) 40 mg EVERY 12 HOURS IVP 04/01/20 21:00 05/01/20 20:59 04/09/20 09:00 Sodium Chloride 1,000 ml @ 60 mls/hr [id number] IV 04/07/20 21:00 05/07/20 20:59 04/09/20 06:33 Trimethoprim/ Sulfamethoxazole (Bactrim-DS) 1 tab Q24H ORAL 03/29/20 17:00 04/11/20 16:59 04/08/20 17:39 Vitamin D (Vitamin D) 10,000 unit DAILY GT 04/07/20 09:00 04/14/20 08:59 04/08/20 08:39 Kisha aSlazar MD Apr 09, 2020 14:13
[2020-04-09] MEDS: Bactrim-DS 1 tab ORAL SCH (17:00)
--- NOTE | 2020-04-09 17:00 | NUR ---
NURSE NOTES: PT FEBRILE, TEMP TAKEN VIA RECTAL PROBE; ICE PLACED ON PT
--- NOTE | 2020-04-09 17:04 | Cardiology Progress Note ---
Assessment/Plan Problem List: (1) Hypertension (2) COVID-19 virus infection (3) Staphylococcus aureus bacteremia (4) Chest pain (5) Pneumonia Status: not improved, unchanged Status Narrative Pt remains intubated, on 65% fio2 w/ o2 sats low 90s Repeat ECHO shows normal LV systolic function and no significant valve lesions Venous duplex of L arm shows acute L subclavian and axillary DVT. Pt now COVID negative ( though had previous false negative studies) , 1 bld cx + for Kat, + sputum kat and urine w/ e coli Assessment/Plan Continue vent support, weaning fi02 as tolerated. Continue iv steroids IV heparin for L arm DVT IV antibiotics and antifungals per ID. No evidence for LV dysfunction on most recent ECHO. continue amlodipine for HTN Subjective ROS Limited/Unobtainable: Yes Subjective Cardiology for Dr. Awan Sedated/ on vent Objective Last 24 Hour Vital Signs Date Time Temp Pulse Resp B/P (MAP) Pulse Ox O2 Delivery O2 Flow Rate FiO2 04/09/20 16:00 90 18 105/59 (74) 92 04/09/20 16:00 20 04/09/20 16:00 20 105/59 Mechanical Ventilator 65 04/09/20 16:00 65 04/09/20 16:00 Mechanical Ventilator 04/09/20 15:45 92 18 91 04/09/20 15:30 90 18 110/63 (79) 91 04/09/20 15:30 90 18 110/63 (79) 91 04/09/20 15:15 90 18 92 04/09/20 15:15 90 18 92 04/09/20 15:00 89 18 105/60 (75) 92 04/09/20 15:00 18 04/09/20 15:00 20 116/70 Mechanical Ventilator 65 04/09/20 15:00 91 18 65 04/09/20 15:00 89 18 105/60 (75) 92 04/09/20 14:45 92 18 91 04/09/20 14:45 92 18 91 04/09/20 14:30 91 18 100/62 (75) 91 04/09/20 14:30 91 18 100/62 (75) 91 04/09/20 14:15 93 18 91 04/09/20 14:15 93 18 91 04/09/20 14:00 96 18 109/61 (77) 89 04/09/20 14:00 96 18 109/61 (77) 89 04/09/20 14:00 20 04/09/20 14:00 20 110/70 Mechanical Ventilator 65 04/09/20 14:00 96 18 89 04/09/20 13:45 98 20 87 04/09/20 13:45 98 20 87 04/09/20 13:30 97 18 115/63 (80) 87 04/09/20 13:30 97 18 115/63 (80) 87 04/09/20 13:30 97 18 115/63 (80) 87 04/09/20 13:27 20 04/09/20 13:15 95 18 89 04/09/20 13:15 95 18 89 04/09/20 13:00 97 20 116/61 (79) 88 04/09/20 13:00 97 18 116/61 (79) 89 04/09/20 13:00 97 18 116/61 (79) 89 04/09/20 13:00 97 18 116/61 (79) 89 04/09/20 13:00 16 120/66 Mechanical Ventilator 04/09/20 12:45 100 18 86 04/09/20 12:45 100 18 86 04/09/20 12:30 94 18 125/64 (84) 91 04/09/20 12:30 94 18 125/64 (84) 91 04/09/20 12:30 94 18 125/64 (84) 91 04/09/20 12:15 92 18 92 04/09/20 12:15 92 18 92 04/09/20 12:00 87 18 102/59 (73) 92 04/09/20 12:00 65 04/09/20 12:00 87 18 92 04/09/20 12:00 16 04/09/20 12:00 20 110/65 Mechanical Ventilator 04/09/20 12:00 87 18 102/59 (73) 92 04/09/20 12:00 Mechanical Ventilator 04/09/20 12:00 87 18 102/59 (73) 92 04/09/20 11:30 85 18 112/64 (80) 93 04/09/20 11:00 82 18 110/65 (80) 93 04/09/20 11:00 20 04/09/20 11:00 20 102/60 Mechanical Ventilator 65 04/09/20 11:00 82 18 93 2/7/21 10:59 85 18 65 04/09/20 10:30 81 18 102/60 (74) 93 04/09/20 10:15 81 18 93 04/09/20 10:00 82 18 102/61 (75) 93 04/09/20 10:00 20 04/09/20 10:00 16 102/60 Mechanical Ventilator 65 04/09/20 10:00 82 18 102/61 (75) 93 04/09/20 09:45 82 18 93 04/09/20 09:30 81 18 103/58 (73) 93 04/09/20 09:15 79 18 93 04/09/20 09:00 80 18 97/58 (71) 93 04/09/20 09:00 85 102/60 04/09/20 09:00 100 18 94 04/09/20 08:57 20 04/09/20 08:57 20 116/82 04/09/20 08:45 84 18 93 04/09/20 08:34 87 18 65 04/09/20 08:30 88 18 121/68 (85) 94 04/09/20 08:15 86 18 94 04/09/20 08:00 65 04/09/20 08:00 82 18 94 04/09/20 08:00 75 18 93/61 (72) 95 04/09/20 08:00 Mechanical Ventilator 04/09/20 08:00 82 18 115/67 (83) 94 04/09/20 07:30 75 18 93/61 (72) 95 04/09/20 07:30 75 18 93/61 (72) 95 04/09/20 07:10 87 18 70 04/09/20 07:00 20 Mechanical Ventilator 70 04/09/20 07:00 20 113/68 Mechanical Ventilator 70 04/09/20 07:00 77 18 99/64 (76) 95 04/09/20 07:00 77 18 99/64 (76) 95 04/09/20 06:30 78 18 113/69 (84) 96 04/09/20 06:30 78 18 113/69 (84) 96 04/09/20 06:30 78 18 113/69 (84) 96 04/09/20 06:00 79 18 95/60 (72) 94 04/09/20 06:00 20 Mechanical Ventilator 70 04/09/20 06:00 20 113/65 Mechanical Ventilator 70 04/09/20 06:00 79 18 95/60 (72) 94 04/09/20 06:00 79 18 95/60 (72) 94 04/09/20 05:30 84 18 101/65 (77) 94 04/09/20 05:30 84 18 101/65 (77) 94 04/09/20 05:30 84 18 101/65 (77) 94 04/09/20 05:00 83 18 116/63 (80) 91 04/09/20 05:00 83 18 116/63 (80) 91 04/09/20 05:00 20 Mechanical Ventilator 65 04/09/20 05:00 20 116/69 Mechanical Ventilator 70 04/09/20 05:00 83 18 116/63 (80) 91 04/09/20 04:53 81 18 114/63 (80) 89 04/09/20 04:53 81 18 114/63 (80) 89 04/09/20 04:45 76 18 114/63 (80) 92 04/09/20 04:40 74 18 79/43 (55) 92 04/09/20 04:40 74 18 79/43 (55) 92 04/09/20 04:30 73 18 114/63 (80) 92 04/09/20 04:30 73 18 75/43 (54) 92 04/09/20 04:30 73 18 75/43 (54) 92 04/09/20 04:30 73 18 75/43 (54) 92 04/09/20 04:15 73 18 92 04/09/20 04:15 73 18 92 04/09/20 04:00 99.8 70 10 100/67 (78) 95 04/09/20 04:00 70 10 100/67 (78) 95 04/09/20 04:00 70 10 100/67 (78) 95 04/09/20 04:00 70 10 100/67 (78) 95 04/09/20 04:00 65 04/09/20 04:00 20 Mechanical Ventilator 65 04/09/20 04:00 20 125/73 Mechanical Ventilator 65 04/09/20 04:00 Mechanical Ventilator 04/09/20 03:45 69 15 95 04/09/20 03:45 69 15 95 04/09/20 03:30 73 11 96/67 (77) 95 04/09/20 03:30 73 11 96/67 (77) 95 04/09/20 03:30 73 11 96/67 (77) 95 04/09/20 03:30 73 11 96/67 (77) 95 04/09/20 03:15 76 17 95 04/09/20 03:15 76 17 95 04/09/20 03:01 78 04/09/20 03:00 20 Mechanical Ventilator 65 04/09/20 03:00 20 117/67 Mechanical Ventilator 65 04/09/20 03:00 78 18 91/63 (72) 95 04/09/20 03:00 78 18 91/63 (72) 95 04/09/20 03:00 78 18 91/63 (72) 95 04/09/20 03:00 78 18 91/63 (72) 95 04/09/20 02:45 78 12 95 04/09/20 02:45 78 12 95 04/09/20 02:30 79 1 98/64 (75) 94 04/09/20 02:30 79 1 98/64 (75) 94 04/09/20 02:30 79 1 98/64 (75) 94 04/09/20 02:30 79 1 98/64 (75) 94 04/09/20 02:15 78 16 94 04/09/20 02:15 78 16 94 04/09/20 02:00 83 17 101/72 (82) 94 04/09/20 02:00 83 17 101/72 (82) 94 04/09/20 02:00 83 17 101/72 (82) 94 04/09/20 02:00 20 Mechanical Ventilator 65 04/09/20 02:00 20 116/71 Mechanical Ventilator 65 04/09/20 02:00 83 17 101/72 (82) 94 04/09/20 01:55 18 Mechanical Ventilator 65 04/09/20 01:45 71 18 95 04/09/20 01:45 71 18 95 04/09/20 01:30 68 18 108/68 (81) 96 04/09/20 01:30 68 18 108/68 (81) 96 04/09/20 01:30 68 18 108/68 (81) 96 04/09/20 01:30 68 18 108/68 (81) 96 04/09/20 01:15 70 18 95 04/09/20 01:15 70 18 95 04/09/20 01:00 67 18 115/73 (87) 96 04/09/20 01:00 67 18 115/73 (87) 96 04/09/20 01:00 67 18 115/73 (87) 96 04/09/20 01:00 20 Mechanical Ventilator 65 04/09/20 01:00 20 108/63 Mechanical Ventilator 65 04/09/20 01:00 67 18 115/73 (87) 96 04/09/20 00:52 69 18 70 04/09/20 00:45 68 18 97 04/09/20 00:45 68 18 97 04/09/20 00:30 68 18 106/67 (80) 96 04/09/20 00:30 68 18 106/67 (80) 96 04/09/20 00:30 68 18 106/67 (80) 96 04/09/20 00:30 68 18 106/67 (80) 96 04/09/20 00:15 68 18 97 04/09/20 00:15 68 18 97 04/09/20 00:00 Mechanical Ventilator 04/09/20 00:00 70 04/09/20 00:00 69 18 109/69 (82) 97 04/09/20 00:00 69 18 109/69 (82) 97 04/09/20 00:00 20 Mechanical Ventilator 70 04/09/20 00:00 20 109/62 Mechanical Ventilator 70 04/09/20 00:00 99.2 69 18 109/69 (82) 97 04/09/20 00:00 69 18 109/69 (82) 97 04/08/20 23:45 68 18 97 04/08/20 23:30 69 18 109/75 (86) 97 04/08/20 23:29 18 114/73 Mechanical Ventilator 70 04/08/20 23:15 67 18 97 04/08/20 23:11 69 04/08/20 23:00 70 18 114/73 (87) 97 04/08/20 23:00 18 Mechanical Ventilator 70 04/08/20 22:45 70 18 97 04/08/20 22:30 70 18 119/82 (94) 97 04/08/20 22:15 72 19 97 04/08/20 22:00 18 Mechanical Ventilator 70 04/08/20 22:00 18 109/78 Mechanical Ventilator 70 04/08/20 22:00 73 18 109/78 (88) 96 04/08/20 21:45 74 18 95 04/08/20 21:30 80 18 104/78 (87) 95 04/08/20 21:15 77 18 97 04/08/20 21:00 85 95/68 04/08/20 21:00 18 Mechanical Ventilator 80 04/08/20 21:00 18 95/68 Mechanical Ventilator 80 04/08/20 21:00 80 18 95/68 (77) 95 04/08/20 20:45 83 16 94 04/08/20 20:30 88 17 85/58 (67) 95 04/08/20 20:15 95 18 93 04/08/20 20:00 96.8 99 20 124/82 (96) 91 04/08/20 20:00 Mechanical Ventilator 04/08/20 20:00 24 Mechanical Ventilator 80 04/08/20 20:00 24 211/109 Mechanical Ventilator 80 04/08/20 20:00 80 04/08/20 19:53 109 17 151/91 (111) 86 04/08/20 19:45 22 75 04/08/20 19:45 106 22 200/109 (139) 98 04/08/20 19:30 112 21 215/91 (132) 97 04/08/20 19:20 22 Mechanical Ventilator 75 04/08/20 19:16 102 04/08/20 19:00 98 24 174/89 (117) 91 04/08/20 19:00 127 24 70 04/08/20 19:00 24 Endotracheal Tube 60 04/08/20 19:00 24 174/89 Endotracheal Tube 60 04/08/20 18:00 100 20 166/82 (110) 88 04/08/20 18:00 20 Endotracheal Tube 60 04/08/20 18:00 20 166/82 Endotracheal Tube 60 General Appearance: WD/WN, on vent, patient on isolation Neck: no JVD Rhythm: ST Cardiovascular: regular rhythm, no gallop/murmur, tachycardia Respiratory/Chest: other - coarse BS bilat Abdomen: non tender, soft, no mass Extremities: no swelling Intake and Output 04/08/20 04/09/20 19:00 07:00 Intake Total 1998 ml 2294 ml Output Total 480 ml 900 ml Balance 1518 ml 1394 ml Intake Oral 0 ml Free Water 300 ml 300 ml IV Total 1098 ml 1374 ml Tube Feeding 600 ml 600 ml Blood Product 0 ml Other 20 ml Output Urine Total 380 ml 800 ml Stool Total 100 ml 100 ml # Voids 2 # Bowel Movements 1 Laboratory Tests Test 04/09/20 01:58 04/09/20 04:25 POC Whole Blood Glucose Pending White Blood Count 4.7 K/UL (4.8-10.8) L Red Blood Count 3.39 M/UL (4.70-6.10) L Hemoglobin 9.7 G/DL (14.2-18.0) L Hematocrit 30.9 % (42.0-52.0) L Mean Corpuscular Volume 91 FL (80-99) Mean Corpuscular Hemoglobin 28.7 PG (27.0-31.0) Mean Corpuscular Hemoglobin Concent 31.5 G/DL (32.0-36.0) L Red Cell Distribution Width 17.0 % (11.6-14.8) H Platelet Count 208 K/UL (150-450) Mean Platelet Volume 6.9 FL (6.5-10.1) Neutrophils (%) (Auto) % (45.0-75.0) Lymphocytes (%) (Auto) % (20.0-45.0) Monocytes (%) (Auto) % (1.0-10.0) Eosinophils (%) (Auto) % (0.0-3.0) Basophils (%) (Auto) % (0.0-2.0) Differential Total Cells Counted 100 Neutrophils % (Manual) 87 % (45-75) H Lymphocytes % (Manual) 8 % (20-45) L Monocytes % (Manual) 5 % (1-10) Eosinophils % (Manual) 0 % (0-3) Basophils % (Manual) 0 % (0-2) Band Neutrophils 0 % (0-8) Platelet Estimate Adequate Platelet Morphology Normal Hypochromasia 1+ Anisocytosis 1+ Sodium Level 146 MMOL/L (136-145) H Potassium Level 4.9 MMOL/L (3.5-5.1) Chloride Level 110 MMOL/L (98-107) H Carbon Dioxide Level 34 MMOL/L (21-32) H Anion Gap 2 mmol/L (5-15) L Blood Urea Nitrogen 22 mg/dL (7-18) H Creatinine 0.4 MG/DL (0.55-1.30) L Estimat Glomerular Filtration Rate > 60 mL/min (>60) Glucose Level 141 MG/DL (74-106) H Calcium Level 7.9 MG/DL (8.5-10.1) L Phosphorus Level 2.4 MG/DL (2.5-4.9) L Magnesium Level 2.2 MG/DL (1.8-2.4) Total Bilirubin 0.9 MG/DL (0.2-1.0) Aspartate Amino Transf (AST/SGOT) 143 U/L (15-37) H Alanine Aminotransferase (ALT/SGPT) 416 U/L (12-78) H Alkaline Phosphatase 244 U/L (46-116) H C-Reactive Protein, Quantitative 1.1 mg/dL (0.00-0.90) H Pro-B-Type Natriuretic Peptide 773 pg/mL (0-125) H Total Protein 4.5 G/DL (6.4-8.2) L Albumin 1.7 G/DL (3.4-5.0) L Globulin 2.8 g/dL Albumin/Globulin Ratio 0.6 (1.0-2.7) L Lily Rene MD Apr 09, 2020 17:04
[2020-04-09] MEDS: Dyna-Hex 2% Top Sol 2oz TOPIC SCH (20:00)
[2020-04-10] VITALS (45 sets, daily range): BP systolic 92–181; BP diastolic 47–96
[2020-04-10] MEDS: Metoclopramide 10mg/2ml Inj IVP SCH ×4 (03:00→21:03)
[2020-04-10] MEDS: NovoLOG Insulin Flexpen SUBQ SCH ×4 (06:00→18:00)
[2020-04-10] MEDS: Solu-MEDROL 40mg Inj IVP SCH ×3 (06:00→22:00)
[2020-04-10 06:28] LABS: HEMATOCRIT 34.6 % (42.0-52.0); HEMOGLOBIN 10.5 G/DL (14.2-18.0); MEAN CORPUSCULAR VOLUME 91 FL (80-99); PLATELET COUNT 215 K/UL (150-450); RED BLOOD COUNT 3.79 M/UL (4.70-6.10); RED CELL DISTRIBUTION WIDTH 16.9 % (11.6-14.8); WHITE BLOOD COUNT 5.3 K/UL (4.8-10.8)
--- NOTE | 2020-04-10 06:40 | NUR ---
CASE MANAGEMENT:REVIEW 04/10/20 SI: COVID PNEUMONIA~INTUBATED 98.8 105 18 154/66 91% ON VENT SUPPORT W/65% FIO2 LABS CURRENTLY PENDING IS: FENTANYL GTT VERSED GTT PRN AGITATION PROPOFOL GTT PRN IV MICAFUNGIN Q24 NORVASC NG Q12 IVF@60/HR LOVENOX SQ Q12 IV PROTONIX Q12 IV SOLUMEDROL Q8HRS BACTRIM NG Q24 IV REGLAN Q6HRS : ICU STATUS PLAN: NON VIOLENT RESTRAINTS
--- NOTE | 2020-04-10 06:40 | General Progress Note ---
Subjective ROS Limited/Unobtainable: No Allergies: Coded Allergies: No Known Allergies (Unverified , 02/05/20) Objective Last 24 Hour Vital Signs Date Time Temp Pulse Resp B/P (MAP) Pulse Ox O2 Delivery O2 Flow Rate FiO2 04/10/20 02:00 24 154/66 Mechanical Ventilator 65 04/10/20 02:00 18 Mechanical Ventilator 65 04/10/20 01:00 22 127/70 Mechanical Ventilator 100 04/10/20 01:00 20 Mechanical Ventilator 61 04/10/20 00:37 101 18 100 04/10/20 00:00 Mechanical Ventilator 04/10/20 00:00 18 125/70 Mechanical Ventilator 65 04/10/20 00:00 18 Mechanical Ventilator 65 04/10/20 00:00 98.8 105 18 136/80 (98) 91 04/09/20 23:00 20 134/80 Mechanical Ventilator 100 04/09/20 23:00 20 Mechanical Ventilator 100 04/09/20 23:00 109 19 134/80 (98) 92 04/09/20 22:39 18 100 04/09/20 22:35 18 128/70 Bi-pap 100 04/09/20 22:00 113 22 124/72 (89) 90 04/09/20 22:00 21 Mechanical Ventilator 04/09/20 22:00 20 134/80 Mechanical Ventilator 100 04/09/20 21:30 112 130/60 04/09/20 21:00 116 23 138/68 (91) 83 04/09/20 21:00 20 Mechanical Ventilator 100 04/09/20 21:00 20 125/70 Endotracheal Tube 100 04/09/20 20:00 99.7 109 20 144/83 (103) 93 04/09/20 20:00 18 Mechanical Ventilator 100 04/09/20 20:00 20 148/78 Mechanical Ventilator 100 04/09/20 20:00 Mechanical Ventilator 04/09/20 19:30 108 20 100 04/09/20 19:00 19 139/73 Mechanical Ventilator 100 04/09/20 19:00 18 Mechanical Ventilator 100 04/09/20 19:00 20 138/68 Mechanical Ventilator 100 04/09/20 19:00 106 19 145/82 (103) 94 04/09/20 18:00 100.3 114 21 153/68 (96) 92 04/09/20 18:00 20 04/09/20 18:00 20 110/61 Mechanical Ventilator 65 04/09/20 17:50 Mechanical Ventilator 04/09/20 17:50 18 115/61 65 04/09/20 17:20 103 20 100 04/09/20 17:00 114 21 153/68 (96) 92 04/09/20 17:00 20 Mechanical Ventilator 65 04/09/20 17:00 20 106/68 Mechanical Ventilator 65 04/09/20 16:30 90 23 137/84 (101) 92 04/09/20 16:00 90 18 105/59 (74) 92 04/09/20 16:00 20 04/09/20 16:00 20 105/59 Mechanical Ventilator 65 04/09/20 16:00 65 04/09/20 16:00 Mechanical Ventilator 04/09/20 15:45 92 18 91 04/09/20 15:30 90 18 110/63 (79) 91 04/09/20 15:30 90 18 110/63 (79) 91 04/09/20 15:15 90 18 92 04/09/20 15:15 90 18 92 04/09/20 15:00 89 18 105/60 (75) 92 04/09/20 15:00 18 04/09/20 15:00 20 116/70 Mechanical Ventilator 65 04/09/20 15:00 91 18 65 04/09/20 15:00 89 18 105/60 (75) 92 04/09/20 14:45 92 18 91 04/09/20 14:45 92 18 91 04/09/20 14:30 91 18 100/62 (75) 91 04/09/20 14:30 91 18 100/62 (75) 91 04/09/20 14:15 93 18 91 04/09/20 14:15 93 18 91 04/09/20 14:00 96 18 109/61 (77) 89 04/09/20 14:00 96 18 109/61 (77) 89 04/09/20 14:00 20 04/09/20 14:00 20 110/70 Mechanical Ventilator 65 04/09/20 14:00 96 18 89 04/09/20 13:45 98 20 87 04/09/20 13:45 98 20 87 04/09/20 13:30 97 18 115/63 (80) 87 04/09/20 13:30 97 18 115/63 (80) 87 04/09/20 13:30 97 18 115/63 (80) 87 04/09/20 13:27 20 04/09/20 13:15 95 18 89 04/09/20 13:15 95 18 89 04/09/20 13:00 97 20 116/61 (79) 88 04/09/20 13:00 97 18 116/61 (79) 89 04/09/20 13:00 97 18 116/61 (79) 89 04/09/20 13:00 97 18 116/61 (79) 89 04/09/20 13:00 16 120/66 Mechanical Ventilator 04/09/20 12:45 100 18 86 04/09/20 12:45 100 18 86 04/09/20 12:30 94 18 125/64 (84) 91 04/09/20 12:30 94 18 125/64 (84) 91 04/09/20 12:30 94 18 125/64 (84) 91 04/09/20 12:15 92 18 92 04/09/20 12:15 92 18 92 04/09/20 12:00 87 18 102/59 (73) 92 04/09/20 12:00 65 04/09/20 12:00 87 18 92 04/09/20 12:00 16 04/09/20 12:00 20 110/65 Mechanical Ventilator 04/09/20 12:00 87 18 102/59 (73) 92 04/09/20 12:00 Mechanical Ventilator 04/09/20 12:00 87 18 102/59 (73) 92 04/09/20 11:30 85 18 112/64 (80) 93 04/09/20 11:00 82 18 110/65 (80) 93 04/09/20 11:00 20 04/09/20 11:00 20 102/60 Mechanical Ventilator 65 04/09/20 11:00 82 18 93 04/09/20 10:59 85 18 65 04/09/20 10:30 81 18 102/60 (74) 93 04/09/20 10:15 81 18 93 04/09/20 10:00 82 18 102/61 (75) 93 04/09/20 10:00 20 04/09/20 10:00 16 102/60 Mechanical Ventilator 65 04/09/20 10:00 82 18 102/61 (75) 93 04/09/20 09:45 82 18 93 04/09/20 09:30 81 18 103/58 (73) 93 04/09/20 09:15 79 18 93 04/09/20 09:00 80 18 97/58 (71) 93 04/09/20 09:00 85 102/60 04/09/20 09:00 100 18 94 04/09/20 08:57 20 04/09/20 08:57 20 116/82 04/09/20 08:45 84 18 93 04/09/20 08:34 87 18 65 04/09/20 08:30 88 18 121/68 (85) 94 04/09/20 08:15 86 18 94 04/09/20 08:00 65 04/09/20 08:00 82 18 94 04/09/20 08:00 75 18 93/61 (72) 95 04/09/20 08:00 Mechanical Ventilator 04/09/20 08:00 82 18 115/67 (83) 94 04/09/20 07:30 75 18 93/61 (72) 95 04/09/20 07:30 75 18 93/61 (72) 95 04/09/20 07:10 87 18 70 04/09/20 07:00 20 Mechanical Ventilator 70 04/09/20 07:00 20 113/68 Mechanical Ventilator 70 04/09/20 07:00 77 18 99/64 (76) 95 04/09/20 07:00 77 18 99/64 (76) 95 Intake and Output 04/09/20 04/10/20 19:00 07:00 Intake Total 3200 ml 1900 ml Output Total 990 ml 400 ml Balance 2210 ml 1500 ml Intake Oral 0 ml 0 ml Free Water 1200 ml 850 ml IV Total 1290 ml 350 ml Tube Feeding 550 ml 500 ml Blood Product 0 ml 0 ml Other 160 ml 200 ml Output Urine Total 440 ml 400 ml Stool Total 550 ml # Voids 16 # Bowel Movements 8 Laboratory Tests 04/09/20 06:45: POC Whole Blood Glucose 131H 04/09/20 18:04: POC Whole Blood Glucose [Pending] 04/09/20 21:44: POC Whole Blood Glucose [Pending] 04/10/20 04:35: White Blood Count [Pending], Red Blood Count [Pending], Hemoglobin [Pending], Hematocrit [Pending], Mean Corpuscular Volume [Pending], Mean Corpuscular Hemoglobin [Pending], Mean Corpuscular Hemoglobin Concent [Pending], Red Cell Distribution Width [Pending], Platelet Count [Pending], Mean Platelet Volume [Pending], Neutrophils (%) (Auto) [Pending], Lymphocytes (%) (Auto) [Pending], Monocytes (%) (Auto) [Pending], Eosinophils (%) (Auto) [Pending], Basophils (%) (Auto) [Pending], Sodium Level [Pending], Potassium Level [Pending], Chloride Level [Pending], Carbon Dioxide Level [Pending], Blood Urea Nitrogen [Pending], Creatinine [Pending], Estimat Glomerular Filtration Rate [Pending], Glucose Level [Pending], Calcium Level [Pending], Phosphorus Level [Pending], Magnesium Level [Pending], Total Bilirubin [Pending], Aspartate Amino Transf (AST/SGOT) [Pending], Alanine Aminotransferase (ALT/SGPT) [Pending], Alkaline Phosphatase [Pending], C-Reactive Protein, Quantitative [Pending], Pro-B-Type Natriuretic Peptide [Pending], Total Protein [Pending], Albumin [Pending], Globulin [Pending] Height (Feet): 5 Height (Inches): 10.00 Weight (Pounds): 240 General Appearance: no apparent distress EENT: normal ENT inspection Neck: supple Cardiovascular: normal rate Respiratory/Chest: decreased breath sounds Abdomen: hypoactive bowel sounds Extremities: non-tender Assessment/Plan Status: not improved, unchanged Assessment/Plan: hep c + but neg RNA intubated OGTF reglan 10 mg repeat labs fu LFTS will fu Da Quintero MD Apr 10, 2020 06:39
[2020-04-10 07:00] LABS: ALANINE AMINOTRANSFERASE 430 U/L (12-78); ALBUMIN 1.7 G/DL (3.4-5.0); ALBUMIN/GLOBULIN RATIO 0.6 (1.0-2.7); ALKALINE PHOSPHATASE 335 U/L (46-116); ANION GAP 0 mmol/L (5-15); ASPARTATE AMINO TRANSFERASE 112 U/L (15-37); BILIRUBIN,TOTAL 0.7 MG/DL (0.2-1.0); BLOOD UREA NITROGEN 21 mg/dL (7-18); CARBON DIOXIDE 35 MMOL/L (21-32); CHLORIDE 108 MMOL/L (98-107); CREATININE 0.4 MG/DL (0.55-1.30); POTASSIUM 4.9 MMOL/L (3.5-5.1); SODIUM 143 MMOL/L (136-145)
--- NOTE | 2020-04-10 07:10 | NUR ---
RESPIRATORY NOTE: PT received on AC/VC: 18, 750 100%, +5. Alarms are on and audible. Vent circuit is secure and out of the way. Airway is secure and patent. No s/s of respiratory distress noted at this time. Will continue to closely monitor.
--- NOTE | 2020-04-10 08:07 | NUR ---
NURSE HAND-OFF REPORT: Latest Vital Signs: Temperature 98.4 , Pulse 71 , B/P 99 /59 , Respiratory Rate 18 , O2 SAT 97 , Mechanical Ventilator, O2 Flow Rate . Vital Sign Comment: EKG Rhythm: Sinus Rhythm Rhythm change?: N Notified?: Y -Dr.Toluie INTERIANO Response: Message left await call Latest Hassan Fall Score: 35 Fall Risk: Medium Risk Safety Measures: Call light Within Reach, Bed Alarm Zone 3, Side Rails Side Rails x3, Bed position Low and Locked. Fall Precautions: Yellow Socks Yellow Gown Door Sign Patient Fall Education Report given to jennifer dobbins using sbar.
--- NOTE | 2020-04-10 08:38 | NUR ---
RD ASSESSMENT & RECOMMENDATIONS SEE CARE ACTIVITY FOR COMPLETE ASSESSMENT DAILY ESTIMATED NEEDS: Needs based on Critical care, wound 81kg abw 22-28 kcals/kg 1909-3096 total kcals 1.25-1.5 g protein/kg 101-122 g total protein 25-30 mL/kg 4863-8983 total fluid mLs NUTRITION DIAGNOSIS: * Inadequate oral intake R/T clinical and respiratory status as evidenced by COVID-19 ++, on continuous BIPAP, prolonged meal refusals, pt is now on TPN, pt is now orally intubated (03/28), now on OGT feeds. * Decreased sodium and fat needs r/t HTN and obesity as evidenced by pt w/ cardiac history, elev BP (159/98-> now improved, on BP meds and diuretics), BMI >30, obese per guidelines. (INACTIVE) ENTERAL NUTRITION RECOMMENDATIONS: Glucerna 1.5 @ 50ml/hr x 24 hrs + Prosource 1pkt BID to provide 1200ml, 1800kcal, 99g prot, 926ml free water * Maintain current TF @ goal as tolerated * Con't Prosource 1pkt BID (additional 22g prot) to better meet est prot needs. ------ WITH CURRENT PROPOFOL RATE OF 13.063ML/DAY-->>NOW OFF PROPOFOL (04/10) ADDITIONAL RECOMMENDATIONS: 1) Maintain calibrated bedscale wts 2) Obtain HgA1C for eval 3) Pt now w/ rectal tube-> pt on Lactulose TID, continue DC Lactulose 4) Off tpn, LFT's trending down. 5) Monitor lytes, replete as needed (Na and BUN up) 6) Monitor BGs- improved, now off Levemir 7) Monitor for propofol resumed, now off
[2020-04-10] MEDS: Vitamin D 1000 units Tab GT SCH (09:00)
[2020-04-10] MEDS: Pantoprazole Inj IVP SCH ×2 (09:00→21:03)
[2020-04-10] MEDS: Enoxaparin 80mg Inj SUBQ SCH ×2 (09:00→21:00)
--- NOTE | 2020-04-10 09:43 | Nephrology Progress Note ---
Assessment/Plan Problem List: (1) Dehydration (2) Electrolyte imbalance (3) COVID-19 virus infection (4) Pneumonia (5) DMII (diabetes mellitus, type 2) (6) Protein malnutrition Assessment Azotemia, hypernatremia Hypoalbuminemia Staff Otilia bacteremia COVID-19 isolation, pneumonia, bilateral infiltrate Hypertension Diabetes mellitus History of smoking Plan April 10: Status quo. Labs reviewed. Remains intubated on ventilator with FiO2 of 65%. Remains full code. Stable from renal standpoint to view. Repeat vitamin D level on April 08 pending April 09: Status quo. Labs reviewed. Stable from renal standpoint of view. Continue per consultants. April 08: Discussed with RN. Labs reviewed. Clinically improving. Requires lower PEEP. Continue per pulmonary. Continue to monitor renal parameters. April 07: Remains full code and on ventilator. Labs reviewed. Renal parameters and electrolytes stable. Continue per consultants. Blood pressure marginally improved. April 06: Full code. On ventilator. Blood pressure 80-90 systolic. IV Lasix discontinued. Free water through tube feeding ordered. Continue to monitor electrolytes and serum sodium. Down on fentanyl as possible. Discussed with PRIYANKA Brown. Clonidine patch discontinued. April 05: Status quo. Remains full code. Remains intubated. Labs reviewed. Renal parameters stable. Serum sodium 150 unchanged. Continue per consultants. April 04: Remains intubated and on ventilator. Remains full code. Labs reviewed. Serum sodium 150 unchanged. Renal parameters stable. Continue per ID and pulmonary. April 03: Intubated. On ventilator. Full code. Labs reviewed. Serum sodium 150 unchanged. Continue to monitor renal parameters. Continue per pulmonary and ID. April 02: Full code. On ventilator. Discussed with RN. Serum sodium slig htly higher. Will cut down on IV Lasix. Continue per consultants. Continue to monitor renal parameters and electrolytes. April 01: Full code. Remains on ventilator. Labs reviewed. Stable from renal standpoint of view. Continue per consultants. March 31: Full code . Remains intubated on ventilator. Labs reviewed. Patient appears toxic. Discussed with RN. Maintenance IV discontinued. Medication list reviewed. Blood pressure medication stopped due to low blood pressure. Levemir insulin stopped. Continue monitor blood sugar and sliding scale insulin. March 30: Full code. On ventilator. Labs reviewed. Clonidine patch dose increased. Lasix increased. 3% saline 1 time ordered. Continue to monitor electrolytes and renal parameters. March 29: Remains full code. On mechanical ventilation. On tube feeding. Will DC TPN. Will start on maintenance IV fluid. Continue to monitor renal parameters. March 28: On BiPAP. Full code. On TPN. Labs reviewed. Discussed with pharmacy. Continue as is. Watch serum potassium. March 27: Remains on BiPAP. No chemistry panel done today. Full code. On TPN. Will check lab tomorrow. March 26: Remains on BiPAP. Remains on TPN. Labs reviewed. Electrolytes and chemistries within normal limits. Continue as is. March 25: Remains on TPN. Labs reviewed. Discussed with pharmacy. Change IV Protonix to p.o. Continue 3% saline infusion with Lasix. Patient full code. March 24: Continue to be on TPN. Labs are reviewed. Aim to collect electrolytes. Discussed with pharmacy. Continue current consultants. March 23: Continues to be on TPN. Labs reviewed. Electrolytes and chemistries all acceptable. Discussed with pharmacy. Continue current management. March 22: On TPN. Labs reviewed. Low sodium noted. 3% saline to be continued. Continue to monitor electrolytes. Discussed with pharmacy. March 21: On TPN. Labs reviewed. Continue 3% saline and Lasix for mild hyponatremia. Continue TPN as these. Discussed with pharmacy. March 20: Remains on TPN. Labs reviewed. Serum sodium higher on IV Lasix and 3% saline infusion. Continue TPN as is. Continue to monitor renal parameters and electrolytes. Discussed with Dr. Mata March 19: Remains on TPN. Labs reviewed. Serum sodium 128. Will give 3% saline with IV Lasix. Continue to monitor electrolytes. No change in TPN composition. Discussed with pharmacy. March 18: Remains on TPN. Labs reviewed. Discussed with pharmacist. Will give 3 doses of IV Lasix 20 mg every 8 hours. Continue to monitor serum sodium electrolytes uric acid. White blood cells down. Continue per consultants. March 17: On TPN. Labs reviewed. Discussed with pharmacist. Sodium content increase. Continue to monitor CMP. Patient continues to have leukocytosis. March 16: On TPN. Labs reviewed. Discussed with pharmacist. Appropriate changes made. Continue to monitor electrolytes. March 15: Remains on TPN. Labs reviewed. Discussed with pharmacist. Continue per current management. March 14: Remains on TPN. Labs reviewed, stable. Vitamin D level low, replacement ordered. Continue to monitor electrolytes and renal parameters. March 13: Patient remains on TPN. Discussed with pharmacist. TPN's sodium content adjusted. Labs reviewed. Continue to monitor electrolytes. Blood pressure remains stable. Continue per consultants. March 12: Patient on TPN. Labs reviewed. CPK remains elevated. Abnormal electrolytes and high blood sugar discussed with pharmacist and TPN adjusted. Continue to monitor labs. Oral Protonix added. Ibuprofen discontinued. Can continue to monitor electrolytes and chemistries. Levemir for high blood sugar added. March 11: Patient on TPN. Labs as of 11:15 AM is still pending. Continue per current treatment plan. Will check labs and adjust TPN as needed. Continue per consultants. March 10: Patient on TPN. Labs reviewed. Electrolytes overall stable. CPK is elevated. Will monitor electrolyte, CPK level, lipid panel. Continue per consultants. Discussed with pharmacist. Discussed with RN. Nutritional evaluation noted. Previously: D5W 100 cc an hour Monitor electrolytes renal parameters TPN and Intralipid ordered Will follow Continue per consultants Dietary consult requested Subjective ROS Limited/Unobtainable: Yes Objective Objective Last 24 Hour Vital Signs Date Time Temp Pulse Resp B/P (MAP) Pulse Ox O2 Delivery O2 Flow Rate FiO2 04/10/20 08:30 65 18 105/58 (74) 97 04/10/20 08:15 65 18 97 04/10/20 08:00 Mechanical Ventilator 04/10/20 08:00 66 04/10/20 08:00 65 04/10/20 08:00 65 18 102/59 (73) 97 04/10/20 07:45 65 18 97 04/10/20 07:30 65 18 100/57 (71) 97 04/10/20 07:15 68 18 97 04/10/20 07:00 67 18 99/59 (72) 97 04/10/20 07:00 71 18 99/59 (72) 97 04/10/20 07:00 21 112/60 Mechanical Ventilator 65 04/10/20 07:00 22 Mechanical Ventilator 65 04/10/20 06:45 69 18 97 04/10/20 06:30 68 18 100/60 (73) 97 04/10/20 06:15 68 18 96 04/10/20 06:00 21 102/59 Mechanical Ventilator 65 04/10/20 06:00 21 Mechanical Ventilator 65 04/10/20 06:00 71 18 99/58 (72) 97 04/10/20 06:00 71 18 99/58 (72) 97 04/10/20 05:00 18 100/57 Mechanical Ventilator 65 04/10/20 05:00 21 Mechanical Ventilator 65 04/10/20 05:00 80 18 94/57 (69) 96 04/10/20 04:00 Mechanical Ventilator 04/10/20 04:00 66 04/10/20 04:00 98.4 95 18 123/71 (88) 93 04/10/20 04:00 18 108/63 Mechanical Ventilator 65 04/10/20 04:00 18 Mechanical Ventilator 65 04/10/20 04:00 65 04/10/20 03:00 23 108/63 Mechanical Ventilator 65 04/10/20 03:00 23 Mechanical Ventilator 65 04/10/20 03:00 94 18 164/96 (118) 93 04/10/20 02:00 24 154/66 Mechanical Ventilator 65 04/10/20 02:00 18 Mechanical Ventilator 65 04/10/20 02:00 92 18 125/74 (91) 93 04/10/20 01:00 22 127/70 Mechanical Ventilator 100 04/10/20 01:00 20 Mechanical Ventilator 61 04/10/20 01:00 98 18 130/74 (92) 93 04/10/20 00:37 101 18 100 04/10/20 00:00 65 04/10/20 00:00 84 04/10/20 00:00 Mechanical Ventilator 04/10/20 00:00 18 125/70 Mechanical Ventilator 65 04/10/20 00:00 18 Mechanical Ventilator 65 04/10/20 00:00 98.8 105 18 136/80 (98) 91 04/09/20 23:00 20 134/80 Mechanical Ventilator 100 04/09/20 23:00 20 Mechanical Ventilator 100 04/09/20 23:00 109 19 134/80 (98) 92 04/09/20 22:39 18 100 04/09/20 22:35 18 128/70 Bi-pap 100 04/09/20 22:00 113 22 124/72 (89) 90 04/09/20 22:00 21 Mechanical Ventilator 04/09/20 22:00 20 134/80 Mechanical Ventilator 100 04/09/20 21:30 112 130/60 04/09/20 21:00 116 23 138/68 (91) 83 04/09/20 21:00 20 Mechanical Ventilator 100 04/09/20 21:00 20 125/70 Endotracheal Tube 100 04/09/20 20:00 99.7 109 20 144/83 (103) 93 04/09/20 20:00 18 Mechanical Ventilator 100 04/09/20 20:00 20 148/78 Mechanical Ventilator 100 04/09/20 20:00 65 04/09/20 20:00 70 04/09/20 20:00 Mechanical Ventilator 04/09/20 19:30 108 20 100 04/09/20 19:00 19 139/73 Mechanical Ventilator 100 04/09/20 19:00 18 Mechanical Ventilator 100 04/09/20 19:00 20 138/68 Mechanical Ventilator 100 04/09/20 19:00 106 19 145/82 (103) 94 04/09/20 18:00 100.3 114 21 153/68 (96) 92 04/09/20 18:00 20 04/09/20 18:00 20 110/61 Mechanical Ventilator 65 04/09/20 17:50 Mechanical Ventilator 04/09/20 17:50 18 115/61 65 04/09/20 17:20 103 20 100 04/09/20 17:00 114 21 153/68 (96) 92 04/09/20 17:00 20 Mechanical Ventilator 65 04/09/20 17:00 20 106/68 Mechanical Ventilator 65 04/09/20 16:30 90 23 137/84 (101) 92 04/09/20 16:00 90 18 105/59 (74) 92 04/09/20 16:00 20 04/09/20 16:00 20 105/59 Mechanical Ventilator 65 04/09/20 16:00 65 04/09/20 16:00 Mechanical Ventilator 04/09/20 15:45 92 18 91 04/09/20 15:30 90 18 110/63 (79) 91 04/09/20 15:30 90 18 110/63 (79) 91 04/09/20 15:15 90 18 92 04/09/20 15:15 90 18 92 04/09/20 15:00 89 18 105/60 (75) 92 04/09/20 15:00 18 04/09/20 15:00 20 116/70 Mechanical Ventilator 65 04/09/20 15:00 91 18 65 04/09/20 15:00 89 18 105/60 (75) 92 04/09/20 14:45 92 18 91 04/09/20 14:45 92 18 91 04/09/20 14:30 91 18 100/62 (75) 91 04/09/20 14:30 91 18 100/62 (75) 91 04/09/20 14:15 93 18 91 04/09/20 14:15 93 18 91 04/09/20 14:00 96 18 109/61 (77) 89 04/09/20 14:00 96 18 109/61 (77) 89 04/09/20 14:00 20 04/09/20 14:00 20 110/70 Mechanical Ventilator 65 04/09/20 14:00 96 18 89 04/09/20 13:45 98 20 87 04/09/20 13:45 98 20 87 04/09/20 13:30 97 18 115/63 (80) 87 04/09/20 13:30 97 18 115/63 (80) 87 04/09/20 13:30 97 18 115/63 (80) 87 04/09/20 13:27 20 04/09/20 13:15 95 18 89 04/09/20 13:15 95 18 89 04/09/20 13:00 97 20 116/61 (79) 88 04/09/20 13:00 97 18 116/61 (79) 89 04/09/20 13:00 97 18 116/61 (79) 89 04/09/20 13:00 97 18 116/61 (79) 89 04/09/20 13:00 16 120/66 Mechanical Ventilator 04/09/20 12:45 100 18 86 04/09/20 12:45 100 18 86 04/09/20 12:30 94 18 125/64 (84) 91 04/09/20 12:30 94 18 125/64 (84) 91 04/09/20 12:30 94 18 125/64 (84) 91 04/09/20 12:15 92 18 92 04/09/20 12:15 92 18 92 04/09/20 12:00 87 18 102/59 (73) 92 04/09/20 12:00 65 04/09/20 12:00 87 18 92 04/09/20 12:00 16 04/09/20 12:00 20 110/65 Mechanical Ventilator 04/09/20 12:00 87 18 102/59 (73) 92 04/09/20 12:00 Mechanical Ventilator 04/09/20 12:00 87 18 102/59 (73) 92 04/09/20 11:30 85 18 112/64 (80) 93 04/09/20 11:00 82 18 110/65 (80) 93 04/09/20 11:00 20 04/09/20 11:00 20 102/60 Mechanical Ventilator 65 04/09/20 11:00 82 18 93 04/09/20 10:59 85 18 65 04/09/20 10:30 81 18 102/60 (74) 93 04/09/20 10:15 81 18 93 04/09/20 10:00 82 18 102/61 (75) 93 04/09/20 10:00 20 04/09/20 10:00 16 102/60 Mechanical Ventilator 65 04/09/20 10:00 82 18 102/61 (75) 93 04/09/20 09:45 82 18 93 Intake and Output 04/09/20 04/10/20 19:00 07:00 Intake Total 3200 ml 2370 ml Output Total 990 ml 440 ml Balance 2210 ml 1930 ml Intake Oral 0 ml 0 ml Free Water 1200 ml 1000 ml IV Total 1290 ml 600 ml Tube Feeding 550 ml 550 ml Blood Product 0 ml 0 ml Other 160 ml 220 ml Output Urine Total 440 ml 440 ml Stool Total 550 ml # Voids 16 # Bowel Movements 8 Current Medications Medications (Trade) Dose Ordered Sig/Dennis Route PRN Reason Start Time Stop Time Status Last Admin Dose Admin Amlodipine Besylate (Norvasc) 2.5 mg EVERY 12 HOURS NG 04/08/20 21:00 05/06/20 18:44 04/09/20 21:30 Bisacodyl (Dulcolax) 10 mg Q12H PRN RECTAL Constipation 03/18/20 16:45 06/16/20 16:44 Chlorhexidine Gluconate (Marlen-Hex 2%) 1 applic DAILY@1999 TOPIC 03/30/20 20:00 06/28/20 19:59 04/09/20 20:00 Dextrose (Dextrose 50%) 25 ml Q30M PRN IV Hypoglycemia 03/29/20 20:45 06/27/20 20:44 Dextrose (Dextrose 50%) 50 ml Q30M PRN IV Hypoglycemia 03/29/20 20:45 06/27/20 20:44 Enoxaparin Sodium (Lovenox) 80 mg EVERY 12 HOURS SUBQ 04/06/20 21:00 07/05/20 20:59 04/09/20 09:00 Fentanyl Citrate 250 ml @ 1 mls/hr Q24H IV 04/09/20 20:45 04/11/20 20:44 04/09/20 22:35 Hydralazine HCl (Apresoline) 10 mg Q4H PRN IV For High Blood Pressure 03/30/20 12:15 06/28/20 12:14 04/03/20 21:00 Insulin Aspart (NovoLOG) Q6HR SUBQ 03/30/20 00:00 06/28/20 00:00 04/10/20 00:00 Labetalol HCl (Normodyne) 10 mg Q4H PRN IV sbp greater tahtn 160 03/28/20 17:30 04/27/20 17:29 Methylprednisolone Sodium Succinate (Solu-MEDROL) 40 mg EVERY 8 HOURS IVP 03/22/20 14:00 06/20/20 13:59 04/10/20 06:00 Metoclopramide HCl (Reglan) 10 mg Q6H IVP 03/30/20 15:00 04/29/20 14:59 04/10/20 03:00 Micafungin Sodium 100 mg/Sodium Chloride 100 ml @ 100 mls/hr Q24H IVPB 04/09/20 15:00 04/22/20 23:59 04/09/20 15:00 Midazolam HCl 100 mg/Sodium Chloride 200 ml @ 0 mls/hr Q24H PRN IV Agitation 04/08/20 22:00 04/10/20 21:59 04/09/20 22:39 Pantoprazole (Protonix) 40 mg EVERY 12 HOURS IVP 04/01/20 21:00 05/01/20 20:59 04/09/20 21:29 Sodium Chloride 1,000 ml @ 60 mls/hr [id number] IV 04/07/20 21:00 05/07/20 20:59 04/09/20 23:00 Trimethoprim/ Sulfamethoxazole (Bactrim-DS) 1 tab Q24H ORAL 03/29/20 17:00 05/10/20 16:59 04/09/20 17:00 Vitamin D (Vitamin D) 10,000 unit DAILY GT 04/07/20 09:00 04/14/20 08:59 04/08/20 08:39 Laboratory Tests 04/09/20 18:04: POC Whole Blood Glucose [Pending] 04/09/20 21:44: POC Whole Blood Glucose [Pending] 04/10/20 04:35: White Blood Count 5.3, Red Blood Count 3.79L, Hemoglobin 10.5L, Hematocrit 34.6L , Mean Corpuscular Volume 91, Mean Corpuscular Hemoglobin 27.7, Mean Corpuscular Hemoglobin Concent 30.4L, Red Cell Distribution Width 16.9H, Platelet Count 215, Mean Platelet Volume 7.3, Neutrophils (%) (Auto) , Lymphocytes (%) (Auto) , Monocytes (%) (Auto) , Eosinophils (%) (Auto) , Basophils (%) (Auto) , Differential Total Cells Counted 100, Neutrophils % (Manual) 86H, Lymphocytes % (Manual) 5L, Monocytes % (Manual) 9, Eosinophils % (Manual) 0, Basophils % (Manual) 0, Band Neutrophils 0, Nucleated Red Blood Cells 2, Platelet Estimate Adequate, Platelet Morphology Normal, Hypochromasia 1+, Anisocytosis 1+, Sodium Level 143, Potassium Level 4.9, Chloride Level 108H, Carbon Dioxide Level 35H, Anion Gap 0L, Blood Urea Nitrogen 21H, Creatinine 0.4L, Estimat Glomerular Filtration Rate > 60, Glucose Level 146H, Calcium Level 8.0L, Phosphorus Level 3.0, Magnesium Level 2.4, Total Bilirubin 0.7, Aspartate Amino Transf (AST/SGOT) 112H, Alanine Aminotransferase (ALT/SGPT) 430H, Alkaline Phosphatase 335H, C- Reactive Protein, Quantitative 2.9H, Pro-B-Type Natriuretic Peptide 646H, Total Protein 4.7L, Albumin 1.7L, Globulin 3.0, Albumin/Globulin Ratio 0.6L Height (Feet): 5 Height (Inches): 10.00 Weight (Pounds): 240 General Appearance: no apparent distress EENT: other - Remains intubated on ventilator Cardiovascular: normal rate Respiratory/Chest: decreased breath sounds Abdomen: distended Rubin Cooper MD Apr 10, 2020 09:43
[2020-04-10] MEDS: fentaNYL 2500mcg/NS 250ml 250 ML IV SCH ×2 (09:45→19:18)
[2020-04-10] MEDS: Midazolam HCl 50mg/10ml vial 100 MG in NS 180 ML IV PRN ×2 (09:53→19:59)
--- NOTE | 2020-04-10 13:20 | Pulmonology Progress Note ---
Subjective ROS Limited/Unobtainable: Yes Interval Events: Intubated 03/28/20 Constitutional: Reports: fatigue, other - on vent HEENT: Repors: no symptoms Respiratory: Reports: dry cough, shortness of breath Cardiovascular: Reports: no symptoms Gastrointestinal/Abdominal: Denies: nausea, vomiting, diarrhea Psychiatric: Reports: other - NA Skin: Denies: rash Musculoskeletal: Denies: pain Allergies: Coded Allergies: No Known Allergies (Unverified , 02/05/20) Objective Last 24 Hour Vital Signs Date Time Temp Pulse Resp B/P (MAP) Pulse Ox O2 Delivery O2 Flow Rate FiO2 04/10/20 12:00 65 04/10/20 12:00 72 18 99/54 (69) 94 04/10/20 12:00 Mechanical Ventilator 04/10/20 12:00 66 04/10/20 11:30 76 18 107/53 (71) 94 04/10/20 11:30 76 18 107/53 (71) 94 04/10/20 11:00 81 18 111/64 (80) 93 04/10/20 11:00 81 18 111/64 (80) 93 04/10/20 11:00 88 18 154/78 (103) 92 04/10/20 10:35 93 21 100 04/10/20 10:30 98 17 154/76 (102) 85 04/10/20 10:30 98 17 154/76 (102) 85 04/10/20 10:00 88 18 154/78 (103) 92 04/10/20 10:00 88 18 154/78 (103) 92 04/10/20 10:00 88 18 154/78 (103) 92 04/10/20 09:53 20 140/60 Mechanical Ventilator 65 04/10/20 09:53 20 65 04/10/20 09:45 20 143/74 Mechanical Ventilator 65 04/10/20 09:30 81 19 143/74 (97) 96 04/10/20 09:30 81 19 143/74 (97) 96 04/10/20 09:00 64 18 106/61 (76) 96 04/10/20 09:00 64 18 106/61 (76) 96 04/10/20 08:30 65 18 105/58 (74) 97 04/10/20 08:15 65 18 97 04/10/20 08:00 Mechanical Ventilator 04/10/20 08:00 66 04/10/20 08:00 65 04/10/20 08:00 65 18 102/59 (73) 97 04/10/20 08:00 20 143/62 Mechanical Ventilator 65 04/10/20 08:00 20 Mechanical Ventilator 65 04/10/20 07:45 65 18 97 04/10/20 07:30 65 18 100/57 (71) 97 04/10/20 07:15 68 18 97 04/10/20 07:10 63 18 100 04/10/20 07:00 67 18 99/59 (72) 97 04/10/20 07:00 71 18 99/59 (72) 97 04/10/20 07:00 21 112/60 Mechanical Ventilator 65 04/10/20 07:00 22 Mechanical Ventilator 65 04/10/20 06:45 69 18 97 04/10/20 06:30 68 18 100/60 (73) 97 04/10/20 06:15 68 18 96 04/10/20 06:00 21 102/59 Mechanical Ventilator 65 04/10/20 06:00 21 Mechanical Ventilator 65 04/10/20 06:00 71 18 99/58 (72) 97 04/10/20 06:00 71 18 99/58 (72) 97 04/10/20 05:00 18 100/57 Mechanical Ventilator 65 04/10/20 05:00 21 Mechanical Ventilator 65 04/10/20 05:00 80 18 94/57 (69) 96 04/10/20 04:00 Mechanical Ventilator 04/10/20 04:00 66 04/10/20 04:00 98.4 95 18 123/71 (88) 93 04/10/20 04:00 18 108/63 Mechanical Ventilator 65 04/10/20 04:00 18 Mechanical Ventilator 65 04/10/20 04:00 65 04/10/20 03:00 23 108/63 Mechanical Ventilator 65 04/10/20 03:00 23 Mechanical Ventilator 65 04/10/20 03:00 94 18 164/96 (118) 93 04/10/20 02:00 24 154/66 Mechanical Ventilator 65 04/10/20 02:00 18 Mechanical Ventilator 65 04/10/20 02:00 92 18 125/74 (91) 93 04/10/20 01:00 22 127/70 Mechanical Ventilator 100 04/10/20 01:00 20 Mechanical Ventilator 61 04/10/20 01:00 98 18 130/74 (92) 93 04/10/20 00:37 101 18 100 04/10/20 00:00 65 04/10/20 00:00 84 04/10/20 00:00 Mechanical Ventilator 04/10/20 00:00 18 125/70 Mechanical Ventilator 65 04/10/20 00:00 18 Mechanical Ventilator 65 04/10/20 00:00 98.8 105 18 136/80 (98) 91 04/09/20 23:00 20 134/80 Mechanical Ventilator 100 04/09/20 23:00 20 Mechanical Ventilator 100 04/09/20 23:00 109 19 134/80 (98) 92 04/09/20 22:39 18 100 04/09/20 22:35 18 128/70 Bi-pap 100 04/09/20 22:00 113 22 124/72 (89) 90 04/09/20 22:00 21 Mechanical Ventilator 04/09/20 22:00 20 134/80 Mechanical Ventilator 100 04/09/20 21:30 112 130/60 04/09/20 21:00 116 23 138/68 (91) 83 04/09/20 21:00 20 Mechanical Ventilator 100 04/09/20 21:00 20 125/70 Endotracheal Tube 100 04/09/20 20:00 99.7 109 20 144/83 (103) 93 04/09/20 20:00 18 Mechanical Ventilator 100 04/09/20 20:00 20 148/78 Mechanical Ventilator 100 04/09/20 20:00 65 04/09/20 20:00 70 04/09/20 20:00 Mechanical Ventilator 04/09/20 19:30 108 20 100 04/09/20 19:00 19 139/73 Mechanical Ventilator 100 04/09/20 19:00 18 Mechanical Ventilator 100 04/09/20 19:00 20 138/68 Mechanical Ventilator 100 04/09/20 19:00 106 19 145/82 (103) 94 04/09/20 18:00 100.3 114 21 153/68 (96) 92 04/09/20 18:00 20 04/09/20 18:00 20 110/61 Mechanical Ventilator 65 04/09/20 17:50 Mechanical Ventilator 04/09/20 17:50 18 115/61 65 2/7/21 17:20 103 20 100 04/09/20 17:00 114 21 153/68 (96) 92 04/09/20 17:00 20 Mechanical Ventilator 65 04/09/20 17:00 20 106/68 Mechanical Ventilator 65 04/09/20 16:30 90 23 137/84 (101) 92 04/09/20 16:00 90 18 105/59 (74) 92 04/09/20 16:00 20 04/09/20 16:00 20 105/59 Mechanical Ventilator 65 04/09/20 16:00 65 04/09/20 16:00 Mechanical Ventilator 04/09/20 15:45 92 18 91 04/09/20 15:30 90 18 110/63 (79) 91 04/09/20 15:30 90 18 110/63 (79) 91 04/09/20 15:15 90 18 92 04/09/20 15:15 90 18 92 04/09/20 15:00 89 18 105/60 (75) 92 04/09/20 15:00 18 04/09/20 15:00 20 116/70 Mechanical Ventilator 65 04/09/20 15:00 91 18 65 04/09/20 15:00 89 18 105/60 (75) 92 04/09/20 14:45 92 18 91 04/09/20 14:45 92 18 91 04/09/20 14:30 91 18 100/62 (75) 91 04/09/20 14:30 91 18 100/62 (75) 91 04/09/20 14:15 93 18 91 04/09/20 14:15 93 18 91 04/09/20 14:00 96 18 109/61 (77) 89 04/09/20 14:00 96 18 109/61 (77) 89 04/09/20 14:00 20 04/09/20 14:00 20 110/70 Mechanical Ventilator 65 04/09/20 14:00 96 18 89 04/09/20 13:45 98 20 87 04/09/20 13:45 98 20 87 04/09/20 13:30 97 18 115/63 (80) 87 04/09/20 13:30 97 18 115/63 (80) 87 04/09/20 13:30 97 18 115/63 (80) 87 04/09/20 13:27 20 Intake and Output 04/09/20 04/10/20 19:00 07:00 Intake Total 3200 ml 2370 ml Output Total 990 ml 440 ml Balance 2210 ml 1930 ml Intake Oral 0 ml 0 ml Free Water 1200 ml 1000 ml IV Total 1290 ml 600 ml Tube Feeding 550 ml 550 ml Blood Product 0 ml 0 ml Other 160 ml 220 ml Output Urine Total 440 ml 440 ml Stool Total 550 ml # Voids 16 # Bowel Movements 8 General Appearance: WD/WN, no acute distress HEENT: normocephalic, atraumatic Respiratory: chest wall non-tender Cardiovascular: normal rate, regular rhythm Abdomen: normal bowel sounds, soft, non tender, other - obese Laboratory Tests 04/09/20 18:04: POC Whole Blood Glucose [Pending] 04/09/20 21:44: POC Whole Blood Glucose [Pending] 04/10/20 04:35: White Blood Count 5.3, Red Blood Count 3.79L, Hemoglobin 10.5L, Hematocrit 34.6L , Mean Corpuscular Volume 91, Mean Corpuscular Hemoglobin 27.7, Mean Corpuscular Hemoglobin Concent 30.4L, Red Cell Distribution Width 16.9H, Platelet Count 215, Mean Platelet Volume 7.3, Neutrophils (%) (Auto) , Lymphocytes (%) (Auto) , Monocytes (%) (Auto) , Eosinophils (%) (Auto) , Basophils (%) (Auto) , Differential Total Cells Counted 100, Neutrophils % (Manual) 86H, Lymphocytes % (Manual) 5L, Monocytes % (Manual) 9, Eosinophils % (Manual) 0, Basophils % (Manual) 0, Band Neutrophils 0, Nucleated Red Blood Cells 2, Platelet Estimate Adequate, Platelet Morphology Normal, Hypochromasia 1+, Anisocytosis 1+, Sodium Level 143, Potassium Level 4.9, Chloride Level 108H, Carbon Dioxide Level 35H, Anion Gap 0L, Blood Urea Nitrogen 21H, Creatinine 0.4L, Estimat Glomerular Filtration Rate > 60, Glucose Level 146H, Calcium Level 8.0L, Phosphorus Level 3.0, Magnesium Level 2.4, Total Bilirubin 0.7, Aspartate Amino Transf (AST/SGOT) 112H, Alanine Aminotransferase (ALT/SGPT) 430H, Alkaline Phosphatase 335H, C- Reactive Protein, Quantitative 2.9H, Pro-B-Type Natriuretic Peptide 646H, Total Protein 4.7L, Albumin 1.7L, Globulin 3.0, Albumin/Globulin Ratio 0.6L Current Medications Medications (Trade) Dose Ordered Sig/Dennis Route PRN Reason Start Time Stop Time Status Last Admin Dose Admin Amlodipine Besylate (Norvasc) 2.5 mg EVERY 12 HOURS NG 04/08/20 21:00 05/06/20 18:44 04/09/20 21:30 Bisacodyl (Dulcolax) 10 mg Q12H PRN RECTAL Constipation 03/18/20 16:45 06/16/20 16:44 Chlorhexidine Gluconate (Marlen-Hex 2%) 1 applic DAILY@2000 TOPIC 03/30/20 20:00 06/28/20 19:59 04/09/20 20:00 Dextrose (Dextrose 50%) 25 ml Q30M PRN IV Hypoglycemia 03/29/20 20:45 06/27/20 20:44 Dextrose (Dextrose 50%) 50 ml Q30M PRN IV Hypoglycemia 03/29/20 20:45 06/27/20 20:44 Enoxaparin Sodium (Lovenox) 80 mg EVERY 12 HOURS SUBQ 04/06/20 21:00 07/05/20 20:59 04/09/20 09:00 Fentanyl Citrate 250 ml @ 1 mls/hr Q24H IV 04/09/20 20:45 04/11/20 20:44 04/10/20 09:45 Hydralazine HCl (Apresoline) 10 mg Q4H PRN IV For High Blood Pressure 03/30/20 12:15 06/28/20 12:14 04/03/20 21:00 Insulin Aspart (NovoLOG) Q6HR SUBQ 03/30/20 00:00 06/28/20 00:00 04/10/20 00:00 Labetalol HCl (Normodyne) 10 mg Q4H PRN IV sbp greater tahtn 160 03/28/20 17:30 04/27/20 17:29 Methylprednisolone Sodium Succinate (Solu-MEDROL) 40 mg EVERY 8 HOURS IVP 03/22/20 14:00 06/20/20 13:59 04/10/20 06:00 Metoclopramide HCl (Reglan) 10 mg Q6H IVP 03/30/20 15:00 04/29/20 14:59 04/10/20 03:00 Micafungin Sodium 100 mg/Sodium Chloride 100 ml @ 100 mls/hr Q24H IVPB 04/09/20 15:00 04/22/20 23:59 04/09/20 15:00 Midazolam HCl 100 mg/Sodium Chloride 200 ml @ 0 mls/hr Q24H PRN IV Agitation 04/08/20 22:00 04/10/20 21:59 04/10/20 09:53 Pantoprazole (Protonix) 40 mg EVERY 12 HOURS IVP 04/01/20 21:00 05/01/20 20:59 04/09/20 21:29 Sodium Chloride 1,000 ml @ 60 mls/hr [id number] IV 04/07/20 21:00 05/07/20 20:59 04/09/20 23:00 Trimethoprim/ Sulfamethoxazole (Bactrim-DS) 1 tab Q24H ORAL 03/29/20 17:00 05/10/20 16:59 04/09/20 17:00 Vitamin D (Vitamin D) 10,000 unit DAILY GT 04/07/20 09:00 04/14/20 08:59 04/08/20 08:39 Assessment/Plan Assessment/Plan Assessment/Plan 1.COVID-19 pneumonia. - Completed specific therapies - On solumedrol 2. DVT ppx - on lovenox 3. Hypertension - no longer on meds - May need pressors 4. Leukocytosis; - ID following - On abx - Budding yeast on blood CS 5. Elevated LFT - positive Hep C; treated in the past with IF 6. Respiratory failure -Intubated 03/28/20 -Family aware - Prognosis grave - Vt 750; rate 18 -On Fentanyl 7. Discussed with cardiology -No evidence for cardiac dysfunction or PE -tachycardic; will increase sedation 8. AMS -back on sedation - has apparent left arm paresis - Will consider CT brain when more stable S/p new PICC line On abx Slowly improving oxygenation Noted left upper extremity swelling. Has DVT; on full dose Lovenox Continue sedation, DC propofol given high triglycerides. Continue fentanyl and Versed. Oxygenation worse today FiO2 65 ->100% PEEP6 John Mata MD Apr 10, 2020 13:20
--- NOTE | 2020-04-10 13:28 | NUR ---
INSURANCE CLINCALS/REVIEW FAXED TO [employer] T: [phone] #1 F: [phone] [employer] O[employer]ATOR:JACQUEILNE JAMES [phone] F: [phone]
[2020-04-10] MEDS: Bactrim-DS 1 tab ORAL SCH (17:00)
--- NOTE | 2020-04-10 19:22 | Cardiology Progress Note ---
Assessment/Plan Assessment/Plan Acute covid 19 pneumonia hypoxemia infiltrate bilat bacteremia hypernatremia / hyponatremia mild abn lfts tachy post intubation fever fungemia dvt upper ext now hypoxemic back on 100% oxygen bp seems better is on prn iv hydralazine and labetolol cxr shosw worsening of lower lobe infiltrates hypoxemia unlikely cardiac related tube feeding echo reviewed last on 03/28 still shows normal lv function no valve pathology / cxr reviwed worsening wbc improved tele reviewed sinus remains critical now is on full dose anticoag due to dvt ue dc ivf diuetic as sig + fludi staus today covid pcr negative , however considering that it took 3 tests to finally in itially identify his covid infection i am not sure if we can trust Subjective Subjective per rn Pt received from PRIYANKA Ji. Pt is sedated, opens eyes to voice and makes eye contact for approx 6 sec, RASS now noted -2; gag reflex intact, pt is able to localize pain and obey simple commands, Objective Last 24 Hour Vital Signs Date Time Temp Pulse Resp B/P (MAP) Pulse Ox O2 Delivery O2 Flow Rate FiO2 04/10/20 19:00 107 24 80 04/10/20 18:45 105 24 84 04/10/20 18:44 104 24 154/75 (101) 84 04/10/20 18:30 115 27 72 04/10/20 18:15 93 20 86 04/10/20 18:05 20 Mechanical Ventilator 65 04/10/20 18:00 93 20 137/66 (89) 87 04/10/20 18:00 20 Mechanical Ventilator 65 04/10/20 17:45 85 18 90 04/10/20 17:30 82 18 106/56 (73) 91 04/10/20 17:15 80 18 94 04/10/20 17:00 77 18 103/53 (70) 94 04/10/20 17:00 77 18 103/53 (70) 94 04/10/20 17:00 20 115/65 Mechanical Ventilator 65 04/10/20 17:00 20 65 04/10/20 16:45 77 18 94 04/10/20 16:45 77 18 94 04/10/20 16:30 76 18 103/57 (72) 94 04/10/20 16:30 76 18 103/57 (72) 94 04/10/20 16:15 76 18 94 2/8/21 16:15 76 18 94 04/10/20 16:15 76 18 94 04/10/20 16:00 65 04/10/20 16:00 Mechanical Ventilator 04/10/20 16:00 76 18 103/55 (71) 94 04/10/20 16:00 76 18 103/55 (71) 94 04/10/20 16:00 20 116/67 Mechanical Ventilator 65 04/10/20 16:00 20 04/10/20 16:00 76 18 103/55 (71) 94 04/10/20 16:00 66 04/10/20 15:45 77 18 93 04/10/20 15:45 77 18 93 04/10/20 15:45 77 18 93 04/10/20 15:30 76 18 99/51 (67) 94 04/10/20 15:30 76 18 99/51 (67) 94 04/10/20 15:30 76 18 99/51 (67) 94 04/10/20 15:15 78 18 94 04/10/20 15:15 78 18 94 04/10/20 15:15 78 18 94 04/10/20 15:06 78 18 100 04/10/20 15:00 79 18 96/55 (69) 95 04/10/20 15:00 79 18 96/55 (69) 95 04/10/20 15:00 20 115/69 Endotracheal Tube 65 04/10/20 15:00 20 65 04/10/20 15:00 79 18 96/55 (69) 95 04/10/20 15:00 79 18 96/55 (69) 95 04/10/20 14:45 84 18 95 04/10/20 14:30 85 18 110/59 (76) 95 04/10/20 14:30 85 18 110/59 (76) 95 04/10/20 14:15 85 18 95 04/10/20 14:00 76 18 97/47 (64) 94 04/10/20 14:00 76 18 97/47 (64) 94 04/10/20 14:00 20 106/68 Mechanical Ventilator 65 04/10/20 14:00 20 65 04/10/20 13:45 76 18 94 04/10/20 13:30 74 18 99/50 (66) 95 04/10/20 13:30 74 18 99/50 (66) 95 04/10/20 13:15 70 18 95 04/10/20 13:00 71 18 95/54 (68) 95 04/10/20 13:00 20 109/65 Mechanical Ventilator 65 04/10/20 13:00 20 Mechanical Ventilator 65 04/10/20 13:00 71 18 95/54 (68) 95 04/10/20 13:00 71 18 95 04/10/20 12:45 68 18 95 04/10/20 12:30 69 18 96/53 (67) 94 04/10/20 12:30 69 18 96/53 (67) 94 04/10/20 12:15 70 18 94 04/10/20 12:00 72 18 99/54 (69) 94 04/10/20 12:00 65 04/10/20 12:00 20 110/65 Mechanical Ventilator 65 04/10/20 12:00 20 Mechanical Ventilator 65 04/10/20 12:00 72 18 99/54 (69) 94 04/10/20 12:00 72 18 99/54 (69) 94 04/10/20 12:00 Mechanical Ventilator 04/10/20 12:00 66 04/10/20 11:30 76 18 107/53 (71) 94 04/10/20 11:30 76 18 107/53 (71) 94 04/10/20 11:00 81 18 111/64 (80) 93 04/10/20 11:00 81 18 111/64 (80) 93 04/10/20 11:00 88 18 154/78 (103) 92 04/10/20 11:00 20 103/57 Mechanical Ventilator 65 04/10/20 11:00 20 Mechanical Ventilator 65 04/10/20 10:35 93 21 100 04/10/20 10:30 98 17 154/76 (102) 85 04/10/20 10:30 98 17 154/76 (102) 85 04/10/20 10:00 88 18 154/78 (103) 92 04/10/20 10:00 88 18 154/78 (103) 92 04/10/20 10:00 88 18 154/78 (103) 92 04/10/20 09:53 20 140/60 Mechanical Ventilator 65 04/10/20 09:53 20 65 04/10/20 09:46 20 117/68 Mechanical Ventilator 65 04/10/20 09:45 20 143/74 Mechanical Ventilator 65 04/10/20 09:30 81 19 143/74 (97) 96 04/10/20 09:30 81 19 143/74 (97) 96 04/10/20 09:00 64 18 106/61 (76) 96 04/10/20 09:00 89 144/68 04/10/20 09:00 64 18 106/61 (76) 96 04/10/20 08:30 65 18 105/58 (74) 97 04/10/20 08:15 65 18 97 04/10/20 08:00 Mechanical Ventilator 04/10/20 08:00 66 04/10/20 08:00 65 04/10/20 08:00 65 18 102/59 (73) 97 04/10/20 08:00 20 143/62 Mechanical Ventilator 65 04/10/20 08:00 20 Mechanical Ventilator 65 04/10/20 07:45 65 18 97 04/10/20 07:30 65 18 100/57 (71) 97 04/10/20 07:15 68 18 97 04/10/20 07:10 63 18 100 04/10/20 07:00 67 18 99/59 (72) 97 04/10/20 07:00 71 18 99/59 (72) 97 04/10/20 07:00 21 112/60 Mechanical Ventilator 65 04/10/20 07:00 22 Mechanical Ventilator 65 04/10/20 06:45 69 18 97 04/10/20 06:30 68 18 100/60 (73) 97 04/10/20 06:15 68 18 96 04/10/20 06:00 21 102/59 Mechanical Ventilator 65 04/10/20 06:00 21 Mechanical Ventilator 65 04/10/20 06:00 71 18 99/58 (72) 97 04/10/20 06:00 71 18 99/58 (72) 97 04/10/20 05:00 18 100/57 Mechanical Ventilator 65 04/10/20 05:00 21 Mechanical Ventilator 65 04/10/20 05:00 80 18 94/57 (69) 96 04/10/20 04:15 90 18 95 04/10/20 04:00 Mechanical Ventilator 04/10/20 04:00 66 04/10/20 04:00 95 18 123/71 (88) 93 04/10/20 04:00 98.4 95 18 123/71 (88) 93 04/10/20 04:00 18 108/63 Mechanical Ventilator 65 04/10/20 04:00 18 Mechanical Ventilator 65 04/10/20 04:00 65 04/10/20 03:45 98 19 92 04/10/20 03:43 99 19 154/83 (106) 92 04/10/20 03:30 107 23 181/83 (115) 78 04/10/20 03:15 108 25 81 04/10/20 03:00 94 18 164/96 (118) 93 04/10/20 03:00 23 108/63 Mechanical Ventilator 65 04/10/20 03:00 23 Mechanical Ventilator 65 04/10/20 03:00 94 18 164/96 (118) 93 04/10/20 02:45 88 18 94 04/10/20 02:30 89 18 132/78 (96) 94 04/10/20 02:15 92 18 94 04/10/20 02:00 92 18 125/74 (91) 93 04/10/20 02:00 24 154/66 Mechanical Ventilator 65 04/10/20 02:00 18 Mechanical Ventilator 65 04/10/20 02:00 92 18 125/74 (91) 93 04/10/20 01:45 94 18 92 04/10/20 01:30 98 18 127/78 (94) 92 04/10/20 01:15 95 18 93 04/10/20 01:00 98 18 130/74 (92) 93 04/10/20 01:00 22 127/70 Mechanical Ventilator 100 04/10/20 01:00 20 Mechanical Ventilator 61 04/10/20 01:00 98 18 130/74 (92) 93 04/10/20 00:45 100 18 93 04/10/20 00:37 101 18 100 04/10/20 00:30 102 18 126/81 (96) 92 04/10/20 00:15 103 18 91 04/10/20 00:00 65 04/10/20 00:00 105 18 138/79 (98) 91 04/10/20 00:00 84 04/10/20 00:00 Mechanical Ventilator 04/10/20 00:00 18 125/70 Mechanical Ventilator 65 04/10/20 00:00 18 Mechanical Ventilator 65 04/10/20 00:00 98.8 105 18 136/80 (98) 91 04/09/20 23:00 20 134/80 Mechanical Ventilator 100 04/09/20 23:00 20 Mechanical Ventilator 100 04/09/20 23:00 109 19 134/80 (98) 92 04/09/20 22:39 18 100 04/09/20 22:35 18 128/70 Bi-pap 100 04/09/20 22:00 113 22 124/72 (89) 90 04/09/20 22:00 21 Mechanical Ventilator 04/09/20 22:00 20 134/80 Mechanical Ventilator 100 04/09/20 21:30 112 130/60 04/09/20 21:00 116 23 138/68 (91) 83 04/09/20 21:00 20 Mechanical Ventilator 100 04/09/20 21:00 20 125/70 Endotracheal Tube 100 04/09/20 20:00 99.7 109 20 144/83 (103) 93 04/09/20 20:00 18 Mechanical Ventilator 100 04/09/20 20:00 20 148/78 Mechanical Ventilator 100 04/09/20 20:00 65 04/09/20 20:00 70 04/09/20 20:00 Mechanical Ventilator 04/09/20 19:30 108 20 100 General Appearance: combative, on vent, patient on isolation Respiratory/Chest: other - tachypneic Intake and Output 04/09/20 04/10/20 19:00 07:00 Intake Total 3200 ml 2370 ml Output Total 990 ml 440 ml Balance 2210 ml 1930 ml Intake Oral 0 ml 0 ml Free Water 1200 ml 1000 ml IV Total 1290 ml 600 ml Tube Feeding 550 ml 550 ml Blood Product 0 ml 0 ml Other 160 ml 220 ml Output Urine Total 440 ml 440 ml Stool Total 550 ml # Voids 16 # Bowel Movements 8 Laboratory Tests Test 04/09/20 21:44 04/10/20 04:35 04/10/20 05:53 POC Whole Blood Glucose Pending Pending White Blood Count 5.3 K/UL (4.8-10.8) Red Blood Count 3.79 M/UL (4.70-6.10) L Hemoglobin 10.5 G/DL (14.2-18.0) L Hematocrit 34.6 % (42.0-52.0) L Mean Corpuscular Volume 91 FL (80-99) Mean Corpuscular Hemoglobin 27.7 PG (27.0-31.0) Mean Corpuscular Hemoglobin Concent 30.4 G/DL (32.0-36.0) L Red Cell Distribution Width 16.9 % (11.6-14.8) H Platelet Count 215 K/UL (150-450) Mean Platelet Volume 7.3 FL (6.5-10.1) Neutrophils (%) (Auto) % (45.0-75.0) Lymphocytes (%) (Auto) % (20.0-45.0) Monocytes (%) (Auto) % (1.0-10.0) Eosinophils (%) (Auto) % (0.0-3.0) Basophils (%) (Auto) % (0.0-2.0) Differential Total Cells Counted 100 Neutrophils % (Manual) 86 % (45-75) H Lymphocytes % (Manual) 5 % (20-45) L Monocytes % (Manual) 9 % (1-10) Eosinophils % (Manual) 0 % (0-3) Basophils % (Manual) 0 % (0-2) Band Neutrophils 0 % (0-8) Nucleated Red Blood Cells 2 /100 WBC Platelet Estimate Adequate Platelet Morphology Normal Hypochromasia 1+ Anisocytosis 1+ Sodium Level 143 MMOL/L (136-145) Potassium Level 4.9 MMOL/L (3.5-5.1) Chloride Level 108 MMOL/L (98-107) H Carbon Dioxide Level 35 MMOL/L (21-32) H Anion Gap 0 mmol/L (5-15) L Blood Urea Nitrogen 21 mg/dL (7-18) H Creatinine 0.4 MG/DL (0.55-1.30) L Estimat Glomerular Filtration Rate > 60 mL/min (>60) Glucose Level 146 MG/DL (74-106) H Calcium Level 8.0 MG/DL (8.5-10.1) L Phosphorus Level 3.0 MG/DL (2.5-4.9) Magnesium Level 2.4 MG/DL (1.8-2.4) Total Bilirubin 0.7 MG/DL (0.2-1.0) Aspartate Amino Transf (AST/SGOT) 112 U/L (15-37) H Alanine Aminotransferase (ALT/SGPT) 430 U/L (12-78) H Alkaline Phosphatase 335 U/L (46-116) H C-Reactive Protein, Quantitative 2.9 mg/dL (0.00-0.90) H Pro-B-Type Natriuretic Peptide 646 pg/mL (0-125) H Total Protein 4.7 G/DL (6.4-8.2) L Albumin 1.7 G/DL (3.4-5.0) L Globulin 3.0 g/dL Albumin/Globulin Ratio 0.6 (1.0-2.7) L Triglycerides Level 248 MG/DL (30-150) H Objective pt in covid 19 isoaltion with acute infection Manan Awan MD Apr 10, 2020 19:22
--- NOTE | 2020-04-10 19:44 | NUR ---
NURSE HAND-OFF REPORT: Latest Vital Signs: Temperature 99.0 , Pulse 107 , B/P 135 /60 , Respiratory Rate 23 , O2 SAT 93 , Mechanical Ventilator, O2 Flow Rate . Vital Sign Comment: EKG Rhythm: Sinus Tachycardia Rhythm change?: N Notified?: Courtney Paige MD Response: Message left await call Latest Hassan Fall Score: 50 Fall Risk: High Risk Safety Measures: Call light Within Reach, Bed Alarm Zone 1, Side Rails Side Rails x3, Bed position Low and Locked. Fall Precautions: Yellow Socks Yellow Gown Door Sign Patient Fall Education Endorsed pt desaturates when moved, turned, or dre care administered. Respiratory called, and is seeing pt at this time. Versed increased, Fentanyl still running for sedation Report given to PRIYANKA Nielsen
[2020-04-10] MEDS: Dyna-Hex 2% Top Sol 2oz TOPIC SCH (20:00)
--- NOTE | 2020-04-10 20:15 | NUR ---
NURSE NOTES: received report from jennifer pt awake restless o2 sat 67 % hr 120 bp 160/68 versed drip mt abg done versed drip at16mg/hr fent drip at 300 mcg/min o2 sa tat 86 % hr 102 bp 92/56 suction and reposition on rt wrest soft restraint nan complaint cont to monitor pt
[2020-04-11] VITALS (33 sets, daily range): BP systolic 89–124; BP diastolic 47–74
[2020-04-11] MEDS ORDERED: MIDAZOLAM IV PRN (02:15)
[2020-04-11] MEDS ORDERED: NS IV PRN ×3 (02:15→08:45)
[2020-04-11] MEDS: fentaNYL 2500mcg/NS 250ml 250 ML IV SCH ×4 (03:10→22:45)
[2020-04-11] MEDS: Metoclopramide 10mg/2ml Inj IVP SCH ×4 (03:14→21:01)
[2020-04-11 05:29] LABS: HEMATOCRIT 31.9 % (42.0-52.0); HEMOGLOBIN 10.1 G/DL (14.2-18.0); MEAN CORPUSCULAR VOLUME 92 FL (80-99); PLATELET COUNT 182 K/UL (150-450); RED BLOOD COUNT 3.48 M/UL (4.70-6.10); RED CELL DISTRIBUTION WIDTH 17.5 % (11.6-14.8); WHITE BLOOD COUNT 5.7 K/UL (4.8-10.8)
[2020-04-11 05:57] LABS: PHOSPHORUS 3.9 MG/DL (2.5-4.9)
[2020-04-11 06:03] LABS: ALANINE AMINOTRANSFERASE 365 U/L (12-78); ALBUMIN 1.6 G/DL (3.4-5.0); ALBUMIN/GLOBULIN RATIO 0.5 (1.0-2.7); ALKALINE PHOSPHATASE 379 U/L (46-116); ANION GAP 2 mmol/L (5-15); ASPARTATE AMINO TRANSFERASE 98 U/L (15-37); BLOOD UREA NITROGEN 17 mg/dL (7-18); CALCIUM 7.9 MG/DL (8.5-10.1); CARBON DIOXIDE 33 MMOL/L (21-32); CHLORIDE 107 MMOL/L (98-107); CREATININE 0.4 MG/DL (0.55-1.30); POTASSIUM 5.2 MMOL/L (3.5-5.1); SODIUM 142 MMOL/L (136-145)
[2020-04-11 06:21] LABS: BILIRUBIN,TOTAL 0.8 MG/DL (0.2-1.0)
[2020-04-11] MEDS: Solu-MEDROL 40mg Inj IVP SCH ×2 (06:23→14:43)
[2020-04-11] MEDS: NovoLOG Insulin Flexpen SUBQ SCH ×4 (06:24→17:49)
--- NOTE | 2020-04-11 07:30 | NUR ---
NURSE HAND-OFF REPORT: Latest Vital Signs: Temperature 99.0 , Pulse 65 , B/P 100 /58 , Respiratory Rate 18 , O2 SAT 96 , Mechanical Ventilator, O2 Flow Rate . Vital Sign Comment: EKG Rhythm: Sinus Rhythm Rhythm change?: N Notified?: Courtney Paige MD Response: Message left await call Latest Hassan Fall Score: 35 Fall Risk: Medium Risk Safety Measures: Call light Within Reach, Bed Alarm Zone 3, Side Rails Side Rails x3, Bed position Low and Locked. Fall Precautions: Yellow Socks Yellow Gown Door Sign Patient Fall Education Report given to shanae dobbins .
--- NOTE | 2020-04-11 07:35 | NUR ---
NURSE NOTES: Report received from Marly MATHEW.Ptresting quietly in bed sedated,noted no resp distress orally intubated,ETT 8.0,lip line 24,AC 18,TV 700 Fio2 90%,Peep5,no signs of pain or discomfort,S-R on the monitor,Brownlee cath draining less than adequate urine output,OGT feeding Glucerna 1.5 at 50 ml/hr no residual noted ,Rectal tube in placed,with small amount of liquid dark brwon stools,ALBERT PICC line intact with Fentanyl drip at 300 mcg/hr,and Versed at 16 mg/hr,and IVF 1/2 NS at 60 ml/hr,pt with bilat wrist restraints in placed,SR up x2 HOB elevated bed lock in lowest position,will continue with plans of care.
[2020-04-11] MEDS ORDERED: MIDAZOLAM HCL IV PRN ×2 (08:45)
[2020-04-11] MEDS: Pantoprazole Inj IVP SCH ×2 (08:48→21:01)
[2020-04-11] MEDS: Enoxaparin 80mg Inj SUBQ SCH ×2 (08:50→21:03)
--- NOTE | 2020-04-11 09:34 | General Progress Note ---
Subjective ROS Limited/Unobtainable: No Allergies: Coded Allergies: No Known Allergies (Unverified , 02/05/20) Objective Last 24 Hour Vital Signs Date Time Temp Pulse Resp B/P (MAP) Pulse Ox O2 Delivery O2 Flow Rate FiO2 04/11/20 09:00 18 Mechanical Ventilator 85 04/11/20 09:00 18 101/58 Mechanical Ventilator 85 04/11/20 08:58 18 Mechanical Ventilator 85 04/11/20 08:55 18 100/57 Mechanical Ventilator 85 04/11/20 08:49 64 100/57 04/11/20 07:30 65 18 100/58 (72) 96 04/11/20 07:00 18 105/60 Mechanical Ventilator 90 04/11/20 07:00 18 102/60 Mechanical Ventilator 90 04/11/20 07:00 66 18 94/54 (67) 96 04/11/20 06:30 68 18 96/58 (71) 97 04/11/20 06:00 18 103/60 Mechanical Ventilator 90 04/11/20 06:00 18 103/54 Mechanical Ventilator 04/11/20 06:00 71 18 96/56 (69) 96 04/11/20 05:30 75 18 100/60 (73) 96 04/11/20 05:00 18 100/64 Endotracheal Tube 90 04/11/20 05:00 18 100/60 Simple Mask 90 04/11/20 05:00 79 18 113/66 (82) 95 04/11/20 04:30 75 18 106/74 (85) 96 04/11/20 04:00 99.0 79 18 102/65 (77) 97 04/11/20 04:00 65 04/11/20 04:00 Mechanical Ventilator 04/11/20 04:00 20 102/65 Mechanical Ventilator 100 04/11/20 04:00 66 04/11/20 03:30 79 18 111/64 (80) 97 04/11/20 03:10 18 103/67 Mechanical Ventilator 100 04/11/20 03:09 77 18 90 04/11/20 03:00 18 111/80 Mechanical Ventilator 100 04/11/20 03:00 80 18 114/69 (84) 98 04/11/20 02:30 81 18 108/70 (83) 98 04/11/20 02:30 81 18 108/70 (83) 98 04/11/20 02:00 83 18 108/67 (81) 97 04/11/20 02:00 83 18 108/67 (81) 97 04/11/20 02:00 18 106/67 Mechanical Ventilator 100 04/11/20 01:30 83 18 102/65 (77) 97 04/11/20 01:30 83 18 102/65 (77) 97 04/11/20 01:00 85 18 110/64 (79) 97 04/11/20 01:00 18 102/65 Mechanical Ventilator 100 04/11/20 01:00 18 Mechanical Ventilator 100 04/11/20 01:00 85 18 110/64 (79) 97 04/11/20 01:00 85 18 110/64 (79) 97 04/11/20 00:45 86 18 96 04/11/20 00:30 87 18 101/69 (80) 96 04/11/20 00:30 87 18 101/69 (80) 96 04/11/20 00:30 87 18 101/69 (80) 96 04/11/20 00:15 87 18 95 04/11/20 00:00 88 18 109/65 (80) 95 04/11/20 00:00 100.0 88 18 109/65 (80) 95 04/11/20 00:00 82 04/11/20 00:00 65 04/11/20 00:00 18 102/65 Mechanical Ventilator 100 04/11/20 00:00 18 Mechanical Ventilator 100 04/11/20 00:00 Mechanical Ventilator 04/10/20 23:30 92 18 104/65 (78) 94 04/10/20 23:19 89 18 100 04/10/20 23:00 18 111/63 Mechanical Ventilator 100 04/10/20 23:00 18 Mechanical Ventilator 100 04/10/20 23:00 91 18 111/63 (79) 94 04/10/20 22:30 93 18 107/68 (81) 94 04/10/20 22:00 18 100/50 Mechanical Ventilator 100 04/10/20 22:00 18 100 04/10/20 22:00 94 33 105/66 (79) 92 04/10/20 21:30 99 19 100/64 (76) 90 04/10/20 21:00 96 04/10/20 21:00 101 19 106/60 (75) 87 04/10/20 21:00 18 103/95 Mechanical Ventilator 100 04/10/20 21:00 18 Mechanical Ventilator 100 04/10/20 21:00 103 94/52 04/10/20 21:00 65 04/10/20 20:30 108 21 92/56 (68) 85 04/10/20 20:00 22 111/63 Mechanical Ventilator 100 04/10/20 20:00 18 Mechanical Ventilator 100 04/10/20 20:00 Mechanical Ventilator 04/10/20 20:00 99.5 109 23 106/61 (76) 84 04/10/20 19:59 24 Mechanical Ventilator 100 04/10/20 19:29 104 25 100 04/10/20 19:18 20 147/66 Mechanical Ventilator 65 04/10/20 19:00 107 24 80 04/10/20 18:45 105 24 84 04/10/20 18:44 104 24 154/75 (101) 84 04/10/20 18:30 115 27 72 04/10/20 18:15 93 20 86 04/10/20 18:05 20 146/56 65 04/10/20 18:05 20 Mechanical Ventilator 65 04/10/20 18:00 93 20 137/66 (89) 87 04/10/20 18:00 20 157/89 04/10/20 18:00 20 Mechanical Ventilator 65 04/10/20 17:45 85 18 90 04/10/20 17:30 82 18 106/56 (73) 91 04/10/20 17:15 80 18 94 04/10/20 17:00 77 18 103/53 (70) 94 04/10/20 17:00 77 18 103/53 (70) 94 04/10/20 17:00 20 115/65 Mechanical Ventilator 65 04/10/20 17:00 20 65 04/10/20 16:45 77 18 94 04/10/20 16:45 77 18 94 04/10/20 16:30 76 18 103/57 (72) 94 04/10/20 16:30 76 18 103/57 (72) 94 04/10/20 16:15 76 18 94 04/10/20 16:15 76 18 94 04/10/20 16:15 76 18 94 04/10/20 16:00 65 04/10/20 16:00 Mechanical Ventilator 04/10/20 16:00 76 18 103/55 (71) 94 04/10/20 16:00 76 18 103/55 (71) 94 04/10/20 16:00 20 116/67 Mechanical Ventilator 65 04/10/20 16:00 20 04/10/20 16:00 76 18 103/55 (71) 94 04/10/20 16:00 66 04/10/20 15:45 77 18 93 04/10/20 15:45 77 18 93 04/10/20 15:45 77 18 93 04/10/20 15:30 76 18 99/51 (67) 94 04/10/20 15:30 76 18 99/51 (67) 94 04/10/20 15:30 76 18 99/51 (67) 94 04/10/20 15:15 78 18 94 04/10/20 15:15 78 18 94 04/10/20 15:15 78 18 94 04/10/20 15:06 78 18 100 04/10/20 15:00 79 18 96/55 (69) 95 04/10/20 15:00 79 18 96/55 (69) 95 04/10/20 15:00 20 115/69 Endotracheal Tube 65 04/10/20 15:00 20 65 04/10/20 15:00 79 18 96/55 (69) 95 04/10/20 15:00 79 18 96/55 (69) 95 04/10/20 14:45 84 18 95 04/10/20 14:30 85 18 110/59 (76) 95 04/10/20 14:30 85 18 110/59 (76) 95 04/10/20 14:15 85 18 95 04/10/20 14:00 76 18 97/47 (64) 94 04/10/20 14:00 76 18 97/47 (64) 94 04/10/20 14:00 20 106/68 Mechanical Ventilator 65 04/10/20 14:00 20 65 04/10/20 13:45 76 18 94 04/10/20 13:30 74 18 99/50 (66) 95 04/10/20 13:30 74 18 99/50 (66) 95 04/10/20 13:15 70 18 95 04/10/20 13:00 71 18 95/54 (68) 95 04/10/20 13:00 20 109/65 Mechanical Ventilator 65 04/10/20 13:00 20 Mechanical Ventilator 65 04/10/20 13:00 71 18 95/54 (68) 95 04/10/20 13:00 71 18 95 04/10/20 12:45 68 18 95 04/10/20 12:30 69 18 96/53 (67) 94 04/10/20 12:30 69 18 96/53 (67) 94 04/10/20 12:15 70 18 94 04/10/20 12:00 72 18 99/54 (69) 94 04/10/20 12:00 65 04/10/20 12:00 20 110/65 Mechanical Ventilator 65 04/10/20 12:00 20 Mechanical Ventilator 65 04/10/20 12:00 72 18 99/54 (69) 94 04/10/20 12:00 72 18 99/54 (69) 94 04/10/20 12:00 Mechanical Ventilator 04/10/20 12:00 66 04/10/20 11:30 76 18 107/53 (71) 94 04/10/20 11:30 76 18 107/53 (71) 94 04/10/20 11:00 81 18 111/64 (80) 93 04/10/20 11:00 81 18 111/64 (80) 93 04/10/20 11:00 88 18 154/78 (103) 92 04/10/20 11:00 20 103/57 Mechanical Ventilator 65 04/10/20 11:00 20 Mechanical Ventilator 65 04/10/20 10:35 93 21 100 04/10/20 10:30 98 17 154/76 (102) 85 04/10/20 10:30 98 17 154/76 (102) 85 04/10/20 10:00 88 18 154/78 (103) 92 04/10/20 10:00 88 18 154/78 (103) 92 04/10/20 10:00 88 18 154/78 (103) 92 04/10/20 09:53 20 140/60 Mechanical Ventilator 65 04/10/20 09:53 20 65 04/10/20 09:46 20 117/68 Mechanical Ventilator 65 04/10/20 09:45 20 143/74 Mechanical Ventilator 65 Intake and Output 04/10/20 04/11/20 19:00 07:00 Intake Total 2441.7 ml 1953.0 ml Output Total 490 ml 170 ml Balance 1951.7 ml 1783.0 ml Intake Oral 0 ml 0 ml Free Water 850 ml 150 ml IV Total 821.7 ml 1153.0 ml Tube Feeding 550 ml 600 ml Blood Product 0 ml Other 220 ml 50 ml Output Urine Total 440 ml 170 ml Stool Total 50 ml # Voids 2 580 # Bowel Movements 1 Laboratory Tests 04/10/20 19:31: Arterial Blood pH 7.426, Arterial Blood Partial Pressure CO2 52.2H, Arterial Blood Partial Pressure O2 42.5*L, Arterial Blood HCO3 33.6H, Arterial Blood Oxygen Saturation 79.8*L, Arterial Blood Base Excess 7.8H, Shemar Test Positive 04/11/20 04:00: White Blood Count 5.7, Red Blood Count 3.48L, Hemoglobin 10.1L, Hematocrit 31.9L , Mean Corpuscular Volume 92, Mean Corpuscular Hemoglobin 28.9, Mean Corpuscular Hemoglobin Concent 31.5L, Red Cell Distribution Width 17.5H, Platelet Count 182, Mean Platelet Volume 7.7, Neutrophils (%) (Auto) , Lymphocytes (%) (Auto) , Monocytes (%) (Auto) , Eosinophils (%) (Auto) , Basophils (%) (Auto) , Differential Total Cells Counted 100, Neutrophils % (Manual) 85H, Lymphocytes % (Manual) 7L, Monocytes % (Manual) 7, Eosinophils % (Manual) 0, Basophils % (Manual) 0, Band Neutrophils 1, Platelet Estimate Adequate, Platelet Morphology Normal, Polychromasia 1+, Hypochromasia 1+, Anisocytosis 1+, Sodium Level 142, Potassium Level 5.2H, Chloride Level 107, Carbon Dioxide Level 33H, Anion Gap 2L , Blood Urea Nitrogen 17, Creatinine 0.4L, Estimat Glomerular Filtration Rate > 60, Glucose Level 135H, Uric Acid 1.8L, Calcium Level 7.9L, Phosphorus Level 3.9, Magnesium Level 2.2, Total Bilirubin 0.8, Aspartate Amino Transf (AST/SGOT) 98H, Alanine Aminotransferase (ALT/SGPT) 365H, Alkaline Phosphatase 379H, C- Reactive Protein, Quantitative 3.6H, Pro-B-Type Natriuretic Peptide 624H, Total Protein 4.6L, Albumin 1.6L, Globulin 3.0, Albumin/Globulin Ratio 0.5L Height (Feet): 5 Height (Inches): 10.00 Weight (Pounds): 240 General Appearance: no apparent distress EENT: normal ENT inspection Neck: supple Cardiovascular: normal rate Respiratory/Chest: decreased breath sounds Abdomen: hypoactive bowel sounds Extremities: non-tender Assessment/Plan Status: not improved, unchanged Assessment/Plan: hep c + but neg RNA intubated OGTF reglan 10 mg repeat labs fu LFTS will fu Da Quintero MD Apr 11, 2020 09:34
--- NOTE | 2020-04-11 10:48 | Nephrology Progress Note ---
Assessment/Plan Problem List: (1) Dehydration (2) Electrolyte imbalance (3) COVID-19 virus infection (4) Pneumonia (5) DMII (diabetes mellitus, type 2) (6) Protein malnutrition Assessment Azotemia, hypernatremia Hypoalbuminemia Staff Otilia bacteremia COVID-19 isolation, pneumonia, bilateral infiltrate Hypertension Diabetes mellitus History of smoking Plan April 11: FiO2 went up to 85%. Renal parameters and electrolytes reasonably well-maintained. Will monitor serum potassium. Will give IV Lasix. April 10: Status quo. Labs reviewed. Remains intubated on ventilator with FiO2 of 65%. Remains full code. Stable from renal standpoint to view. Repeat vitamin D level on April 08 pending April 09: Status quo. Labs reviewed. Stable from renal standpoint of view. Continue per consultants. April 08: Discussed with RN. Labs reviewed. Clinically improving. Requires lower PEEP. Continue per pulmonary. Continue to monitor renal parameters. April 07: Remains full code and on ventilator. Labs reviewed. Renal parameters and electrolytes stable. Continue per consultants. Blood pressure marginally improved. April 06: Full code. On ventilator. Blood pressure 80-90 systolic. IV Lasix discontinued. Free water through tube feeding ordered. Continue to monitor electrolytes and serum sodium. Down on fentanyl as possible. Discussed with RN Kevin. Clonidine patch discontinued. April 05: Status quo. Remains full code. Remains intubated. Labs reviewed. Renal parameters stable. Serum sodium 150 unchanged. Continue per consultants. April 04: Remains intubated and on ventilator. Remains full code. Labs reviewed. Serum sodium 150 unchanged. Renal parameters stable. Continue per ID and pulmonary. April 03: Intubated. On ventilator. Full code. Labs reviewed. Serum sodium 150 unchanged. Continue to monitor renal parameters. Continue per pulmonary and ID. April 02: Full code. On ventilator. Discussed with RN. Serum sodium slightly higher. Will cut down on IV Lasix. Continue per consultants. Continue to monitor renal parameters and electrolytes. April 01: Full code. Remains on ventilator. Labs reviewed. Stable from renal standpoint of view. Continue per consultants. March 31: Full code . Remains intubated on ventilator. Labs reviewed. Patient appears toxic. Discussed with RN. Maintenance IV discontinued. Medication list reviewed. Blood pressure medication stopped due to low blood pressure. Levemir insulin stopped. Continue monitor blood sugar and sliding scale insulin. March 30: Full code. On ventilator. Labs reviewed. Clonidine patch dose increased. Lasix increased. 3% saline 1 time ordered. Continue to monitor electrolytes and renal parameters. March 29: Remains full code. On mechanical ventilation. On tube feeding. Will DC TPN. Will start on maintenance IV fluid. Continue to monitor renal parameters. March 28: On BiPAP. Full code. On TPN. Labs reviewed. Discussed with pharmacy. Continue as is. Watch serum potassium. March 27: Remains on BiPAP. No chemistry panel done today. Full code. On TPN. Will check lab tomorrow. March 26: Remains on BiPAP. Remains on TPN. Labs reviewed. Electrolytes and chemistries within normal limits. Continue as is. March 25: Remains on TPN. Labs reviewed. Discussed with pharmacy. Change IV Protonix to p.o. Continue 3% saline infusion with Lasix. Patient full code. March 24: Continue to be on TPN. Labs are reviewed. Aim to collect electrolytes. Discussed with pharmacy. Continue current consultants. March 23: Continues to be on TPN. Labs reviewed. Electrolytes and chemistries all acceptable. Discussed with pharmacy. Continue current management. March 22: On TPN. Labs reviewed. Low sodium noted. 3% saline to be continued. Continue to monitor electrolytes. Discussed with pharmacy. March 21: On TPN. Labs reviewed. Continue 3% saline and Lasix for mild hyponatremia. Continue TPN as these. Discussed with pharmacy. March 20: Remains on TPN. Labs reviewed. Serum sodium higher on IV Lasix and 3% saline infusion. Continue TPN as is. Continue to monitor renal parameters and electrolytes. Discussed with Dr. Mata March 19: Remains on TPN. Labs reviewed. Serum sodium 128. Will give 3% saline with IV Lasix. Continue to monitor electrolytes. No change in TPN composition. Discussed with pharmacy. March 18: Remains on TPN. Labs reviewed. Discussed with pharmacist. Will give 3 doses of IV Lasix 20 mg every 8 hours. Continue to monitor serum sodium electrolytes uric acid. White blood cells down. Continue per consultants. March 17: On TPN. Labs reviewed. Discussed with pharmacist. Sodium content increase. Continue to monitor CMP. Patient continues to have leukocytosis. March 16: On TPN. Labs reviewed. Discussed with pharmacist. Appropriate changes made. Continue to monitor electrolytes. March 15: Remains on TPN. Labs reviewed. Discussed with pharmacist. Continue per current management. March 14: Remains on TPN. Labs reviewed, stable. Vitamin D level low, replacement ordered. Continue to monitor electrolytes and renal parameters. March 13: Patient remains on TPN. Discussed with pharmacist. TPN's sodium content adjusted. Labs reviewed. Continue to monitor electrolytes. Blood pressure remains stable. Continue per consultants. March 12: Patient on TPN. Labs reviewed. CPK remains elevated. Abnormal electrolytes and high blood sugar discussed with pharmacist and TPN adjusted. Continue to monitor labs. Oral Protonix added. Ibuprofen discontinued. Can continue to monitor electrolytes and chemistries. Levemir for high blood sugar added. March 11: Patient on TPN. Labs as of 11:15 AM is still pending. Continue per current treatment plan. Will check labs and adjust TPN as needed. Continue per consultants. March 10: Patient on TPN. Labs reviewed. Electrolytes overall stable. CPK is elevated. Will monitor electrolyte, CPK level, lipid panel. Continue per consultants. Discussed with pharmacist. Discussed with RN. Nutritional evaluation noted. Previously: D5W 100 cc an hour Monitor electrolytes renal parameters TPN and Intralipid ordered Will follow Continue per consultants Dietary consult requested Subjective ROS Limited/Unobtainable: Yes Objective Objective Last 24 Hour Vital Signs Date Time Temp Pulse Resp B/P (MAP) Pulse Ox O2 Delivery O2 Flow Rate FiO2 04/11/20 10:00 18 Mechanical Ventilator 85 04/11/20 10:00 18 102/54 Mechanical Ventilator 85 04/11/20 09:00 18 Mechanical Ventilator 85 04/11/20 09:00 18 101/58 Mechanical Ventilator 85 04/11/20 08:58 18 Mechanical Ventilator 85 04/11/20 08:55 18 100/57 Mechanical Ventilator 85 04/11/20 08:49 64 100/57 04/11/20 07:30 65 18 100/58 (72) 96 04/11/20 07:00 18 105/60 Mechanical Ventilator 90 04/11/20 07:00 18 102/60 Mechanical Ventilator 90 04/11/20 07:00 66 18 94/54 (67) 96 04/11/20 06:30 68 18 96/58 (71) 97 04/11/20 06:00 18 103/60 Mechanical Ventilator 90 04/11/20 06:00 18 103/54 Mechanical Ventilator 04/11/20 06:00 71 18 96/56 (69) 96 04/11/20 05:30 75 18 100/60 (73) 96 04/11/20 05:00 18 100/64 Endotracheal Tube 90 04/11/20 05:00 18 100/60 Simple Mask 90 04/11/20 05:00 79 18 113/66 (82) 95 04/11/20 04:30 75 18 106/74 (85) 96 04/11/20 04:00 99.0 79 18 102/65 (77) 97 04/11/20 04:00 65 04/11/20 04:00 Mechanical Ventilator 04/11/20 04:00 20 102/65 Mechanical Ventilator 100 04/11/20 04:00 66 04/11/20 03:30 79 18 111/64 (80) 97 04/11/20 03:10 18 103/67 Mechanical Ventilator 100 04/11/20 03:09 77 18 90 04/11/20 03:00 18 111/80 Mechanical Ventilator 100 04/11/20 03:00 80 18 114/69 (84) 98 04/11/20 02:30 81 18 108/70 (83) 98 04/11/20 02:30 81 18 108/70 (83) 98 04/11/20 02:00 83 18 108/67 (81) 97 04/11/20 02:00 83 18 108/67 (81) 97 04/11/20 02:00 18 106/67 Mechanical Ventilator 100 04/11/20 01:30 83 18 102/65 (77) 97 04/11/20 01:30 83 18 102/65 (77) 97 04/11/20 01:00 85 18 110/64 (79) 97 04/11/20 01:00 18 102/65 Mechanical Ventilator 100 04/11/20 01:00 18 Mechanical Ventilator 100 04/11/20 01:00 85 18 110/64 (79) 97 04/11/20 01:00 85 18 110/64 (79) 97 04/11/20 00:45 86 18 96 04/11/20 00:30 87 18 101/69 (80) 96 04/11/20 00:30 87 18 101/69 (80) 96 04/11/20 00:30 87 18 101/69 (80) 96 04/11/20 00:15 87 18 95 04/11/20 00:00 88 18 109/65 (80) 95 04/11/20 00:00 100.0 88 18 109/65 (80) 95 04/11/20 00:00 82 04/11/20 00:00 65 04/11/20 00:00 18 102/65 Mechanical Ventilator 100 04/11/20 00:00 18 Mechanical Ventilator 100 04/11/20 00:00 Mechanical Ventilator 04/10/20 23:30 92 18 104/65 (78) 94 04/10/20 23:19 89 18 100 04/10/20 23:00 18 111/63 Mechanical Ventilator 100 04/10/20 23:00 18 Mechanical Ventilator 100 04/10/20 23:00 91 18 111/63 (79) 94 04/10/20 22:30 93 18 107/68 (81) 94 04/10/20 22:00 18 100/50 Mechanical Ventilator 100 04/10/20 22:00 18 100 04/10/20 22:00 94 33 105/66 (79) 92 04/10/20 21:30 99 19 100/64 (76) 90 04/10/20 21:00 96 04/10/20 21:00 101 19 106/60 (75) 87 04/10/20 21:00 18 103/95 Mechanical Ventilator 100 04/10/20 21:00 18 Mechanical Ventilator 100 04/10/20 21:00 103 94/52 04/10/20 21:00 65 04/10/20 20:30 108 21 92/56 (68) 85 04/10/20 20:00 22 111/63 Mechanical Ventilator 100 04/10/20 20:00 18 Mechanical Ventilator 100 04/10/20 20:00 Mechanical Ventilator 04/10/20 20:00 99.5 109 23 106/61 (76) 84 04/10/20 19:59 24 Mechanical Ventilator 100 04/10/20 19:29 104 25 100 04/10/20 19:18 20 147/66 Mechanical Ventilator 65 04/10/20 19:00 107 24 80 04/10/20 18:45 105 24 84 04/10/20 18:44 104 24 154/75 (101) 84 04/10/20 18:30 115 27 72 04/10/20 18:15 93 20 86 04/10/20 18:05 20 146/56 65 04/10/20 18:05 20 Mechanical Ventilator 65 04/10/20 18:00 93 20 137/66 (89) 87 04/10/20 18:00 20 157/89 04/10/20 18:00 20 Mechanical Ventilator 65 04/10/20 17:45 85 18 90 04/10/20 17:30 82 18 106/56 (73) 91 04/10/20 17:15 80 18 94 04/10/20 17:00 77 18 103/53 (70) 94 04/10/20 17:00 77 18 103/53 (70) 94 04/10/20 17:00 20 115/65 Mechanical Ventilator 65 04/10/20 17:00 20 65 04/10/20 16:45 77 18 94 04/10/20 16:45 77 18 94 04/10/20 16:30 76 18 103/57 (72) 94 04/10/20 16:30 76 18 103/57 (72) 94 04/10/20 16:15 76 18 94 04/10/20 16:15 76 18 94 04/10/20 16:15 76 18 94 04/10/20 16:00 65 04/10/20 16:00 Mechanical Ventilator 04/10/20 16:00 76 18 103/55 (71) 94 04/10/20 16:00 76 18 103/55 (71) 94 04/10/20 16:00 20 116/67 Mechanical Ventilator 65 04/10/20 16:00 20 04/10/20 16:00 76 18 103/55 (71) 94 04/10/20 16:00 66 04/10/20 15:45 77 18 93 04/10/20 15:45 77 18 93 04/10/20 15:45 77 18 93 04/10/20 15:30 76 18 99/51 (67) 94 04/10/20 15:30 76 18 99/51 (67) 94 04/10/20 15:30 76 18 99/51 (67) 94 04/10/20 15:15 78 18 94 04/10/20 15:15 78 18 94 04/10/20 15:15 78 18 94 04/10/20 15:06 78 18 100 04/10/20 15:00 79 18 96/55 (69) 95 04/10/20 15:00 79 18 96/55 (69) 95 04/10/20 15:00 20 115/69 Endotracheal Tube 65 04/10/20 15:00 20 65 04/10/20 15:00 79 18 96/55 (69) 95 04/10/20 15:00 79 18 96/55 (69) 95 04/10/20 14:45 84 18 95 04/10/20 14:30 85 18 110/59 (76) 95 04/10/20 14:30 85 18 110/59 (76) 95 04/10/20 14:15 85 18 95 04/10/20 14:00 76 18 97/47 (64) 94 04/10/20 14:00 76 18 97/47 (64) 94 04/10/20 14:00 20 106/68 Mechanical Ventilator 65 04/10/20 14:00 20 65 04/10/20 13:45 76 18 94 04/10/20 13:30 74 18 99/50 (66) 95 04/10/20 13:30 74 18 99/50 (66) 95 04/10/20 13:15 70 18 95 04/10/20 13:00 71 18 95/54 (68) 95 04/10/20 13:00 20 109/65 Mechanical Ventilator 65 04/10/20 13:00 20 Mechanical Ventilator 65 04/10/20 13:00 71 18 95/54 (68) 95 04/10/20 13:00 71 18 95 04/10/20 12:45 68 18 95 04/10/20 12:30 69 18 96/53 (67) 94 04/10/20 12:30 69 18 96/53 (67) 94 04/10/20 12:15 70 18 94 04/10/20 12:00 72 18 99/54 (69) 94 04/10/20 12:00 65 04/10/20 12:00 20 110/65 Mechanical Ventilator 65 04/10/20 12:00 20 Mechanical Ventilator 65 04/10/20 12:00 72 18 99/54 (69) 94 04/10/20 12:00 72 18 99/54 (69) 94 04/10/20 12:00 Mechanical Ventilator 04/10/20 12:00 66 04/10/20 11:30 76 18 107/53 (71) 94 04/10/20 11:30 76 18 107/53 (71) 94 04/10/20 11:00 81 18 111/64 (80) 93 04/10/20 11:00 81 18 111/64 (80) 93 04/10/20 11:00 88 18 154/78 (103) 92 04/10/20 11:00 20 103/57 Mechanical Ventilator 65 04/10/20 11:00 20 Mechanical Ventilator 65 Intake and Output 04/10/20 04/11/20 19:00 07:00 Intake Total 2441.7 ml 1953.0 ml Output Total 490 ml 170 ml Balance 1951.7 ml 1783.0 ml Intake Oral 0 ml 0 ml Free Water 850 ml 150 ml IV Total 821.7 ml 1153.0 ml Tube Feeding 550 ml 600 ml Blood Product 0 ml Other 220 ml 50 ml Output Urine Total 440 ml 170 ml Stool Total 50 ml # Voids 2 580 # Bowel Movements 1 Current Medications Medications (Trade) Dose Ordered Sig/Dennis Route PRN Reason Start Time Stop Time Status Last Admin Dose Admin Amlodipine Besylate (Norvasc) 2.5 mg EVERY 12 HOURS NG 04/08/20 21:00 05/06/20 18:44 04/11/20 08:49 Bisacodyl (Dulcolax) 10 mg Q12H PRN RECTAL Constipation 03/18/20 16:45 06/16/20 16:44 Chlorhexidine Gluconate (Marlen-Hex 2%) 1 applic DAILY@2000 TOPIC 03/30/20 20:00 06/28/20 19:59 04/10/20 20:00 Dextrose (Dextrose 50%) 25 ml Q30M PRN IV Hypoglycemia 03/29/20 20:45 06/27/20 20:44 Dextrose (Dextrose 50%) 50 ml Q30M PRN IV Hypoglycemia 03/29/20 20:45 06/27/20 20:44 Enoxaparin Sodium (Lovenox) 80 mg EVERY 12 HOURS SUBQ 04/06/20 21:00 07/05/20 20:59 04/11/20 08:50 Fentanyl Citrate 250 ml @ 1 mls/hr Q24H IV 04/09/20 20:45 04/11/20 20:44 04/11/20 08:55 Hydralazine HCl (Apresoline) 10 mg Q4H PRN IV For High Blood Pressure 03/30/20 12:15 06/28/20 12:14 04/03/20 21:00 Insulin Aspart (NovoLOG) Q6HR SUBQ 03/30/20 00:00 06/28/20 00:00 04/11/20 06:24 Labetalol HCl (Normodyne) 10 mg Q4H PRN IV sbp greater tahtn 160 03/28/20 17:30 04/27/20 17:29 Methylprednisolone Sodium Succinate (Solu-MEDROL) 40 mg EVERY 8 HOURS IVP 03/22/20 14:00 06/20/20 13:59 04/11/20 06:23 Metoclopramide HCl (Reglan) 10 mg Q6H IVP 03/30/20 15:00 04/29/20 14:59 04/11/20 08:48 Micafungin Sodium 100 mg/Sodium Chloride 100 ml @ 100 mls/hr Q24H IVPB 04/09/20 15:00 04/22/20 23:59 04/10/20 15:00 Midazolam HCl 50 mg/Sodium Chloride 200 ml @ 24 mls/hr Q24H PRN IV To Patient Comfort 04/11/20 08:45 04/13/20 08:59 04/11/20 08:58 Pantoprazole (Protonix) 40 mg EVERY 12 HOURS IVP 04/01/20 21:00 05/01/20 20:59 04/11/20 08:48 Sodium Chloride 1,000 ml @ 30 mls/hr Q24H IV 04/07/20 21:00 05/07/20 20:59 04/10/20 19:57 Trimethoprim/ Sulfamethoxazole (Bactrim-DS) 1 tab Q24H ORAL 03/29/20 17:00 05/10/20 16:59 04/10/20 17:00 Vitamin D (Vitamin D) 10,000 unit DAILY GT 04/07/20 09:00 04/14/20 08:59 04/10/20 09:00 Laboratory Tests 04/10/20 19:31: Arterial Blood pH 7.426, Arterial Blood Partial Pressure CO2 52.2H, Arterial Blood Partial Pressure O2 42.5*L, Arterial Blood HCO3 33.6H, Arterial Blood Oxygen Saturation 79.8*L, Arterial Blood Base Excess 7.8H, Shemar Test Positive 04/11/20 04:00: White Blood Count 5.7, Red Blood Count 3.48L, Hemoglobin 10.1L, Hematocrit 31.9L , Mean Corpuscular Volume 92, Mean Corpuscular Hemoglobin 28.9, Mean Corpuscular Hemoglobin Concent 31.5L, Red Cell Distribution Width 17.5H, Platelet Count 182, Mean Platelet Volume 7.7, Neutrophils (%) (Auto) , Lymphocytes (%) (Auto) , Monocytes (%) (Auto) , Eosinophils (%) (Auto) , Basophils (%) (Auto) , Differential Total Cells Counted 100, Neutrophils % (Manual) 85H, Lymphocytes % (Manual) 7L, Monocytes % (Manual) 7, Eosinophils % (Manual) 0, Basophils % (Manual) 0, Band Neutrophils 1, Platelet Estimate Adequate, Platelet Morphology Normal, Polychromasia 1+, Hypochromasia 1+, Anisocytosis 1+, Sodium Level 142, Potassium Level 5.2H, Chloride Level 107, Carbon Dioxide Level 33H, Anion Gap 2L , Blood Urea Nitrogen 17, Creatinine 0.4L, Estimat Glomerular Filtration Rate > 60, Glucose Level 135H, Uric Acid 1.8L, Calcium Level 7.9L, Phosphorus Level 3.9, Magnesium Level 2.2, Total Bilirubin 0.8, Aspartate Amino Transf (AST/SGOT) 98H, Alanine Aminotransferase (ALT/SGPT) 365H, Alkaline Phosphatase 379H, C- Reactive Protein, Quantitative 3.6H, Pro-B-Type Natriuretic Peptide 624H, Total Protein 4.6L, Albumin 1.6L, Globulin 3.0, Albumin/Globulin Ratio 0.5L Height (Feet): 5 Height (Inches): 10.00 Weight (Pounds): 240 General Appearance: no apparent distress EENT: other - Intubated on ventilator Cardiovascular: normal rate Respiratory/Chest: decreased breath sounds Abdomen: distended Rubin Cooper MD Apr 11, 2020 10:48
[2020-04-11] MEDS: Vitamin D 1000 units Tab GT SCH (10:53)
--- NOTE | 2020-04-11 11:00 | NUR ---
NURSE NOTES: Dr Cooper at bedside,informed re pt's low urine output,ordered for Lasix 20 mg IV.
--- NOTE | 2020-04-11 11:07 | NUR ---
CASE MANAGEMENT:REVIEW 04/11/20 SI: COVID PNEUMONIA~INTUBATED 100.0 65 18 102/5496% ON VENT SUPPORT W/85% FIO2 H/H-10.1/31.9 K+5.2 CO2+33 AST/ALT+98/365 IS: IV LASIX X1 FENTANYL GTT VERSED GTT IV MICAFUNGIN Q24 NORVASC NG Q12 IVF@30/HR LOVENOX SQ Q12 IV PROTONIX Q12 IV SOLUMEDROL 40MG Q8HRS BACTRIM NG Q24 IV REGLAN Q6HRS : ICU STATUS PLAN: NON VIOLENT RESTRAINTS
--- NOTE | 2020-04-11 11:17 | NUR ---
INSURANCE CLINCALS/REVIEW FAXED TO [employer] T: [phone] #1 F: [phone] AND [facility] [employer]ERICAL SUPPORT:JACQUELINE JAMES [phone] F: [phone]
--- NOTE | 2020-04-11 11:43 | Pulmonology Progress Note ---
Subjective ROS Limited/Unobtainable: Yes Interval Events: Intubated 03/28/20 Constitutional: Reports: fatigue, other - on vent HEENT: Repors: no symptoms Respiratory: Reports: dry cough, shortness of breath Cardiovascular: Reports: no symptoms Gastrointestinal/Abdominal: Denies: nausea, vomiting, diarrhea Psychiatric: Reports: other - NA Skin: Denies: rash Musculoskeletal: Denies: pain Allergies: Coded Allergies: No Known Allergies (Unverified , 02/05/20) Objective Last 24 Hour Vital Signs Date Time Temp Pulse Resp B/P (MAP) Pulse Ox O2 Delivery O2 Flow Rate FiO2 04/11/20 10:00 18 Mechanical Ventilator 85 04/11/20 10:00 18 102/54 Mechanical Ventilator 85 04/11/20 09:00 18 Mechanical Ventilator 85 04/11/20 09:00 18 101/58 Mechanical Ventilator 85 04/11/20 08:58 18 Mechanical Ventilator 85 04/11/20 08:55 18 100/57 Mechanical Ventilator 85 04/11/20 08:49 64 100/57 04/11/20 07:30 65 18 100/58 (72) 96 04/11/20 07:00 18 105/60 Mechanical Ventilator 90 04/11/20 07:00 18 102/60 Mechanical Ventilator 90 04/11/20 07:00 66 18 94/54 (67) 96 04/11/20 06:30 68 18 96/58 (71) 97 04/11/20 06:00 18 103/60 Mechanical Ventilator 90 04/11/20 06:00 18 103/54 Mechanical Ventilator 04/11/20 06:00 71 18 96/56 (69) 96 04/11/20 05:30 75 18 100/60 (73) 96 04/11/20 05:00 18 100/64 Endotracheal Tube 90 04/11/20 05:00 18 100/60 Simple Mask 90 04/11/20 05:00 79 18 113/66 (82) 95 04/11/20 04:30 75 18 106/74 (85) 96 04/11/20 04:00 99.0 79 18 102/65 (77) 97 04/11/20 04:00 65 04/11/20 04:00 Mechanical Ventilator 04/11/20 04:00 20 102/65 Mechanical Ventilator 100 04/11/20 04:00 66 04/11/20 03:30 79 18 111/64 (80) 97 04/11/20 03:10 18 103/67 Mechanical Ventilator 100 04/11/20 03:09 77 18 90 04/11/20 03:00 18 111/80 Mechanical Ventilator 100 04/11/20 03:00 80 18 114/69 (84) 98 04/11/20 02:30 81 18 108/70 (83) 98 04/11/20 02:30 81 18 108/70 (83) 98 04/11/20 02:00 83 18 108/67 (81) 97 04/11/20 02:00 83 18 108/67 (81) 97 04/11/20 02:00 18 106/67 Mechanical Ventilator 100 04/11/20 01:30 83 18 102/65 (77) 97 04/11/20 01:30 83 18 102/65 (77) 97 04/11/20 01:00 85 18 110/64 (79) 97 04/11/20 01:00 18 102/65 Mechanical Ventilator 100 04/11/20 01:00 18 Mechanical Ventilator 100 04/11/20 01:00 85 18 110/64 (79) 97 04/11/20 01:00 85 18 110/64 (79) 97 04/11/20 00:45 86 18 96 04/11/20 00:30 87 18 101/69 (80) 96 04/11/20 00:30 87 18 101/69 (80) 96 04/11/20 00:30 87 18 101/69 (80) 96 04/11/20 00:15 87 18 95 04/11/20 00:00 88 18 109/65 (80) 95 04/11/20 00:00 100.0 88 18 109/65 (80) 95 04/11/20 00:00 82 04/11/20 00:00 65 04/11/20 00:00 18 102/65 Mechanical Ventilator 100 04/11/20 00:00 18 Mechanical Ventilator 100 04/11/20 00:00 Mechanical Ventilator 04/10/20 23:30 92 18 104/65 (78) 94 04/10/20 23:19 89 18 100 04/10/20 23:00 18 111/63 Mechanical Ventilator 100 04/10/20 23:00 18 Mechanical Ventilator 100 04/10/20 23:00 91 18 111/63 (79) 94 04/10/20 22:30 93 18 107/68 (81) 94 04/10/20 22:00 18 100/50 Mechanical Ventilator 100 04/10/20 22:00 18 100 04/10/20 22:00 94 33 105/66 (79) 92 04/10/20 21:30 99 19 100/64 (76) 90 04/10/20 21:00 96 04/10/20 21:00 101 19 106/60 (75) 87 04/10/20 21:00 18 103/95 Mechanical Ventilator 100 04/10/20 21:00 18 Mechanical Ventilator 100 04/10/20 21:00 103 94/52 04/10/20 21:00 65 04/10/20 20:30 108 21 92/56 (68) 85 04/10/20 20:00 22 111/63 Mechanical Ventilator 100 04/10/20 20:00 18 Mechanical Ventilator 100 04/10/20 20:00 Mechanical Ventilator 04/10/20 20:00 99.5 109 23 106/61 (76) 84 04/10/20 19:59 24 Mechanical Ventilator 100 04/10/20 19:29 104 25 100 04/10/20 19:18 20 147/66 Mechanical Ventilator 65 04/10/20 19:00 107 24 80 04/10/20 18:45 105 24 84 04/10/20 18:44 104 24 154/75 (101) 84 04/10/20 18:30 115 27 72 04/10/20 18:15 93 20 86 04/10/20 18:05 20 146/56 65 04/10/20 18:05 20 Mechanical Ventilator 65 04/10/20 18:00 93 20 137/66 (89) 87 04/10/20 18:00 20 157/89 04/10/20 18:00 20 Mechanical Ventilator 65 04/10/20 17:45 85 18 90 04/10/20 17:30 82 18 106/56 (73) 91 04/10/20 17:15 80 18 94 04/10/20 17:00 77 18 103/53 (70) 94 04/10/20 17:00 77 18 103/53 (70) 94 04/10/20 17:00 20 115/65 Mechanical Ventilator 65 04/10/20 17:00 20 65 04/10/20 16:45 77 18 94 04/10/20 16:45 77 18 94 04/10/20 16:30 76 18 103/57 (72) 94 04/10/20 16:30 76 18 103/57 (72) 94 04/10/20 16:15 76 18 94 04/10/20 16:15 76 18 94 04/10/20 16:15 76 18 94 04/10/20 16:00 65 04/10/20 16:00 Mechanical Ventilator 04/10/20 16:00 76 18 103/55 (71) 94 04/10/20 16:00 76 18 103/55 (71) 94 04/10/20 16:00 20 116/67 Mechanical Ventilator 65 04/10/20 16:00 20 04/10/20 16:00 76 18 103/55 (71) 94 04/10/20 16:00 66 04/10/20 15:45 77 18 93 04/10/20 15:45 77 18 93 04/10/20 15:45 77 18 93 04/10/20 15:30 76 18 99/51 (67) 94 04/10/20 15:30 76 18 99/51 (67) 94 04/10/20 15:30 76 18 99/51 (67) 94 04/10/20 15:15 78 18 94 04/10/20 15:15 78 18 94 04/10/20 15:15 78 18 94 04/10/20 15:06 78 18 100 04/10/20 15:00 79 18 96/55 (69) 95 04/10/20 15:00 79 18 96/55 (69) 95 04/10/20 15:00 20 115/69 Endotracheal Tube 65 04/10/20 15:00 20 65 04/10/20 15:00 79 18 96/55 (69) 95 04/10/20 15:00 79 18 96/55 (69) 95 04/10/20 14:45 84 18 95 04/10/20 14:30 85 18 110/59 (76) 95 04/10/20 14:30 85 18 110/59 (76) 95 04/10/20 14:15 85 18 95 04/10/20 14:00 76 18 97/47 (64) 94 04/10/20 14:00 76 18 97/47 (64) 94 04/10/20 14:00 20 106/68 Mechanical Ventilator 65 2/8/21 14:00 20 65 04/10/20 13:45 76 18 94 04/10/20 13:30 74 18 99/50 (66) 95 04/10/20 13:30 74 18 99/50 (66) 95 04/10/20 13:15 70 18 95 04/10/20 13:00 71 18 95/54 (68) 95 04/10/20 13:00 20 109/65 Mechanical Ventilator 65 04/10/20 13:00 20 Mechanical Ventilator 65 04/10/20 13:00 71 18 95/54 (68) 95 04/10/20 13:00 71 18 95 04/10/20 12:45 68 18 95 04/10/20 12:30 69 18 96/53 (67) 94 04/10/20 12:30 69 18 96/53 (67) 94 04/10/20 12:15 70 18 94 04/10/20 12:00 72 18 99/54 (69) 94 04/10/20 12:00 65 04/10/20 12:00 20 110/65 Mechanical Ventilator 65 04/10/20 12:00 20 Mechanical Ventilator 65 04/10/20 12:00 72 18 99/54 (69) 94 04/10/20 12:00 72 18 99/54 (69) 94 04/10/20 12:00 Mechanical Ventilator 04/10/20 12:00 66 Intake and Output 04/10/20 04/11/20 19:00 07:00 Intake Total 2441.7 ml 1953.0 ml Output Total 490 ml 170 ml Balance 1951.7 ml 1783.0 ml Intake Oral 0 ml 0 ml Free Water 850 ml 150 ml IV Total 821.7 ml 1153.0 ml Tube Feeding 550 ml 600 ml Blood Product 0 ml Other 220 ml 50 ml Output Urine Total 440 ml 170 ml Stool Total 50 ml # Voids 2 580 # Bowel Movements 1 General Appearance: WD/WN, no acute distress HEENT: normocephalic, atraumatic Respiratory: chest wall non-tender Cardiovascular: normal rate, regular rhythm Abdomen: normal bowel sounds, soft, non tender, other - obese Laboratory Tests 04/10/20 19:31: Arterial Blood pH 7.426, Arterial Blood Partial Pressure CO2 52.2H, Arterial Blood Partial Pressure O2 42.5*L, Arterial Blood HCO3 33.6H, Arterial Blood Oxygen Saturation 79.8*L, Arterial Blood Base Excess 7.8H, Shemar Test Positive 04/11/20 04:00: White Blood Count 5.7, Red Blood Count 3.48L, Hemoglobin 10.1L, Hematocrit 31.9L , Mean Corpuscular Volume 92, Mean Corpuscular Hemoglobin 28.9, Mean Corpuscular Hemoglobin Concent 31.5L, Red Cell Distribution Width 17.5H, Platelet Count 182, Mean Platelet Volume 7.7, Neutrophils (%) (Auto) , Lymphocytes (%) (Auto) , Monocytes (%) (Auto) , Eosinophils (%) (Auto) , Basophils (%) (Auto) , Differential Total Cells Counted 100, Neutrophils % (Manual) 85H, Lymphocytes % (Manual) 7L, Monocytes % (Manual) 7, Eosinophils % (Manual) 0, Basophils % (Manual) 0, Band Neutrophils 1, Platelet Estimate Adequate, Platelet Morphology Normal, Polychromasia 1+, Hypochromasia 1+, Anisocytosis 1+, Sodium Level 142, Potassium Level 5.2H, Chloride Level 107, Carbon Dioxide Level 33H, Anion Gap 2L , Blood Urea Nitrogen 17, Creatinine 0.4L, Estimat Glomerular Filtration Rate > 60, Glucose Level 135H, Uric Acid 1.8L, Calcium Level 7.9L, Phosphorus Level 3.9, Magnesium Level 2.2, Total Bilirubin 0.8, Aspartate Amino Transf (AST/SGOT) 98H, Alanine Aminotransferase (ALT/SGPT) 365H, Alkaline Phosphatase 379H, C-Reactive Protein, Quantitative 3.6H, Pro-B-Type Natriuretic Peptide 624H, Total Protein 4.6L, Albumin 1.6L, Globulin 3.0, Albumin/Globulin Ratio 0.5L Current Medications Medications (Trade) Dose Ordered Sig/Dennis Route PRN Reason Start Time Stop Time Status Last Admin Dose Admin Amlodipine Besylate (Norvasc) 2.5 mg EVERY 12 HOURS NG 04/08/20 21:00 05/06/20 18:44 04/11/20 08:49 Bisacodyl (Dulcolax) 10 mg Q12H PRN RECTAL Constipation 03/18/20 16:45 06/16/20 16:44 Chlorhexidine Gluconate (Marlen-Hex 2%) 1 applic DAILY@1999 TOPIC 03/30/20 20:00 06/28/20 19:59 04/10/20 20:00 Dextrose (Dextrose 50%) 25 ml Q30M PRN IV Hypoglycemia 03/29/20 20:45 06/27/20 20:44 Dextrose (Dextrose 50%) 50 ml Q30M PRN IV Hypoglycemia 03/29/20 20:45 06/27/20 20:44 Enoxaparin Sodium (Lovenox) 80 mg EVERY 12 HOURS SUBQ 04/06/20 21:00 07/05/20 20:59 04/11/20 08:50 Fentanyl Citrate 250 ml @ 1 mls/hr Q24H IV 04/09/20 20:45 04/11/20 20:44 04/11/20 08:55 Furosemide (Lasix) 20 mg ONCE IV 04/11/20 11:00 04/11/20 12:00 04/11/20 10:55 Hydralazine HCl (Apresoline) 10 mg Q4H PRN IV For High Blood Pressure 03/30/20 12:15 06/28/20 12:14 04/03/20 21:00 Insulin Aspart (NovoLOG) Q6HR SUBQ 03/30/20 00:00 06/28/20 00:00 04/11/20 06:24 Labetalol HCl (Normodyne) 10 mg Q4H PRN IV sbp greater tahtn 160 03/28/20 17:30 04/27/20 17:29 Methylprednisolone Sodium Succinate (Solu-MEDROL) 40 mg EVERY 8 HOURS IVP 03/22/20 14:00 06/20/20 13:59 04/11/20 06:23 Metoclopramide HCl (Reglan) 10 mg Q6H IVP 03/30/20 15:00 04/29/20 14:59 04/11/20 08:48 Micafungin Sodium 100 mg/Sodium Chloride 100 ml @ 100 mls/hr Q24H IVPB 04/09/20 15:00 04/22/20 23:59 04/10/20 15:00 Midazolam HCl 50 mg/Sodium Chloride 200 ml @ 24 mls/hr Q24H PRN IV To Patient Comfort 04/11/20 08:45 04/13/20 08:59 04/11/20 08:58 Pantoprazole (Protonix) 40 mg EVERY 12 HOURS IVP 04/01/20 21:00 05/01/20 20:59 04/11/20 08:48 Sodium Chloride 1,000 ml @ 30 mls/hr Q24H IV 04/07/20 21:00 05/07/20 20:59 04/10/20 19:57 Trimethoprim/ Sulfamethoxazole (Bactrim-DS) 1 tab Q24H ORAL 03/29/20 17:00 05/10/20 16:59 04/10/20 17:00 Vitamin D (Vitamin D) 10,000 unit DAILY GT 04/07/20 09:00 04/14/20 08:59 04/11/20 10:53 Assessment/Plan Assessment/Plan Assessment/Plan 1.COVID-19 pneumonia. - Completed specific therapies - On solumedrol 2. DVT ppx - on lovenox 3. Hypertension - no longer on meds - May need pressors 4. Leukocytosis; - ID following - On abx - Budding yeast on blood CS 5. Elevated LFT - positive Hep C; treated in the past with IF 6. Respiratory failure -Intubated 03/28/20 -Family aware - Prognosis grave - Vt 750; rate 18 -On Fentanyl 7. Discussed with cardiology -No evidence for cardiac dysfunction or PE -tachycardic; will increase sedation 8. AMS -back on sedation - has apparent left arm paresis - Will consider CT brain when more stable S/p new PICC line On abx Slowly improving oxygenation Noted left upper extremity swelling. Has DVT; on full dose Lovenox Continue sedation, DC propofol given high triglycerides. Continue fentanyl and Versed. Oxygenation better today FiO2 65 ->100 ->85% PEEP5 John Mata MD Apr 11, 2020 11:43
--- NOTE | 2020-04-11 13:00 | NUR ---
NURSE NOTES: Oral care care done,ETT suctioning done PRN.turned and repositioned.
[2020-04-11] MEDS: Midazolam HCl 50mg/10ml vial 100 MG in NS 180 ML IV PRN (16:30)
--- NOTE | 2020-04-11 16:30 | NUR ---
NURSE NOTES: Pt starting to desaturate on the 80's,called R.T.,Fio2 increased to 100%
[2020-04-11] MEDS: Bactrim-DS 1 tab ORAL SCH (16:38)
[2020-04-11] MEDS ORDERED: Amikacin Rx to dose MISC PRN (17:30)
--- NOTE | 2020-04-11 17:41 | Infectious Diseases Prog Note ---
Assessment/Plan Assessment/Plan ASSESSMENT AND PLAN: 1. staph aureus bacteremia/mssa, ? source, ? endocarditis, sepsis, leukocytosis, ? CAP, PJP less likely with HIV negative and steroids < 1 month covid-19 +, hypoxia, sob, chest x-ray worse, ? PE, ? HCAP/aspiration pna recurrent fevers - ? fungal, ? OI leukocytosis noted - ? new infection, ? steroids cocci serology negative, legionella negative, beta 1,3 D-glucan wnl, Il-16 - 13.7 elevated LFT's - ? TPN, ? Bactrim - US without gallbladder disease, + steatosis - d/w GI - TPN more likely than bactrim as etiology e.coli uti - s/p treatment with rocephin, s/p treatment for presumptive pneumocystis pna + yeast in blood, fungemia, ? line infection, line changed worsening respiratory status, ? new aspiration pna/hcap, ? sepsis - zosyn, amikacin, vancomycin, surveillance cultures - micafungin - day # 9/14 (post negative blood cultures - 04/02/20) - picc line changed - bactrim for pneumocystis prophylaxis, s/p pneumocystis treatment - s/p tx for mssa bacteremia and ? endocarditis - monitor hypoxia, labs and chest x-ray - guarded condition 2. covid-19 isolation 3. Hypertension history. Blood pressure treatment primary care team. 4. Elevated blood sugars. Blood sugar treatment per primary care team. 5. No known drug allergies. 6. Social history is positive for smoking. 7. Family history is noncontributory. 8. MAR was noted. 9. Case was discussed with RN. 10. Continue treatment per primary consultants. Subjective Constitutional: Reports: fever, other - fio2-100 % HEENT: Reports: congestion Respiratory: Reports: shortness of breath Cardiovascular: Reports: other - no pressors Gastrointestinal/Abdominal: Denies: nausea, vomiting, diarrhea Genitourinary: Reports: other - + joseph Neurologic: Reports: other - sedated Psychiatric: Reports: other - NA Skin: Denies: rash Hematologic: Denies: bleeding Musculoskeletal: Denies: pain Allergies: Coded Allergies: No Known Allergies (Unverified , 02/05/20) Objective Last 24 Hour Vital Signs Date Time Temp Pulse Resp B/P (MAP) Pulse Ox O2 Delivery O2 Flow Rate FiO2 04/11/20 17:05 64 18 108/67 (81) 95 04/11/20 17:00 18 Mechanical Ventilator 100 04/11/20 17:00 18 109/57 Mechanical Ventilator 85 04/11/20 16:30 18 Mechanical Ventilator 85 04/11/20 16:13 98.9 69 18 89 04/11/20 16:09 Mechanical Ventilator 04/11/20 16:00 85 04/11/20 16:00 68 18 101/47 (65) 89 04/11/20 16:00 18 101/47 Mechanical Ventilator 85 04/11/20 16:00 69 04/11/20 15:00 18 105/58 Mechanical Ventilator 85 04/11/20 15:00 67 18 105/58 (74) 93 04/11/20 14:00 18 89/51 Mechanical Ventilator 85 04/11/20 14:00 63 18 89/51 (64) 93 04/11/20 13:00 18 90/52 Mechanical Ventilator 85 04/11/20 13:00 66 18 90/52 (65) 93 04/11/20 12:00 85 04/11/20 12:00 Mechanical Ventilator 04/11/20 12:00 98.9 68 18 96/55 (69) 93 04/11/20 12:00 79 04/11/20 12:00 18 Mechanical Ventilator 85 04/11/20 12:00 18 96/55 Mechanical Ventilator 85 04/11/20 11:58 74 04/11/20 11:40 75 18 90 04/11/20 11:00 18 Mechanical Ventilator 85 04/11/20 11:00 18 124/67 Mechanical Ventilator 85 04/11/20 11:00 79 18 124/67 (86) 94 04/11/20 10:00 69 18 94/51 (65) 92 04/11/20 10:00 18 Mechanical Ventilator 85 04/11/20 10:00 18 102/54 Mechanical Ventilator 85 04/11/20 09:00 65 18 101/58 (72) 94 04/11/20 09:00 18 Mechanical Ventilator 85 04/11/20 09:00 18 101/58 Mechanical Ventilator 85 04/11/20 09:00 85 04/11/20 08:58 18 Mechanical Ventilator 85 04/11/20 08:55 18 100/57 Mechanical Ventilator 85 04/11/20 08:49 64 100/57 04/11/20 08:00 99.0 65 18 98/55 (69) 95 04/11/20 08:00 Mechanical Ventilator 04/11/20 08:00 90 04/11/20 08:00 73 04/11/20 07:30 65 18 100/58 (72) 96 04/11/20 07:07 64 18 90 04/11/20 07:00 18 105/60 Mechanical Ventilator 90 04/11/20 07:00 18 102/60 Mechanical Ventilator 90 04/11/20 07:00 66 18 94/54 (67) 96 04/11/20 06:30 68 18 96/58 (71) 97 04/11/20 06:00 18 103/60 Mechanical Ventilator 90 04/11/20 06:00 18 103/54 Mechanical Ventilator 04/11/20 06:00 71 18 96/56 (69) 96 04/11/20 05:30 75 18 100/60 (73) 96 04/11/20 05:00 18 100/64 Endotracheal Tube 90 04/11/20 05:00 18 100/60 Simple Mask 90 04/11/20 05:00 79 18 113/66 (82) 95 04/11/20 04:30 75 18 106/74 (85) 96 04/11/20 04:00 99.0 79 18 102/65 (77) 97 04/11/20 04:00 65 04/11/20 04:00 Mechanical Ventilator 04/11/20 04:00 20 102/65 Mechanical Ventilator 100 04/11/20 04:00 66 04/11/20 03:30 79 18 111/64 (80) 97 04/11/20 03:10 18 103/67 Mechanical Ventilator 100 04/11/20 03:09 77 18 90 04/11/20 03:00 18 111/80 Mechanical Ventilator 100 04/11/20 03:00 80 18 114/69 (84) 98 04/11/20 02:30 81 18 108/70 (83) 98 04/11/20 02:30 81 18 108/70 (83) 98 04/11/20 02:00 83 18 108/67 (81) 97 04/11/20 02:00 83 18 108/67 (81) 97 04/11/20 02:00 18 106/67 Mechanical Ventilator 100 04/11/20 01:30 83 18 102/65 (77) 97 04/11/20 01:30 83 18 102/65 (77) 97 04/11/20 01:00 85 18 110/64 (79) 97 04/11/20 01:00 18 102/65 Mechanical Ventilator 100 04/11/20 01:00 18 Mechanical Ventilator 100 04/11/20 01:00 85 18 110/64 (79) 97 04/11/20 01:00 85 18 110/64 (79) 97 04/11/20 00:45 86 18 96 04/11/20 00:30 87 18 101/69 (80) 96 04/11/20 00:30 87 18 101/69 (80) 96 04/11/20 00:30 87 18 101/69 (80) 96 04/11/20 00:15 87 18 95 04/11/20 00:00 88 18 109/65 (80) 95 04/11/20 00:00 100.0 88 18 109/65 (80) 95 04/11/20 00:00 82 04/11/20 00:00 65 04/11/20 00:00 18 102/65 Mechanical Ventilator 100 04/11/20 00:00 18 Mechanical Ventilator 100 04/11/20 00:00 Mechanical Ventilator 04/10/20 23:30 92 18 104/65 (78) 94 04/10/20 23:19 89 18 100 04/10/20 23:00 18 111/63 Mechanical Ventilator 100 04/10/20 23:00 18 Mechanical Ventilator 100 04/10/20 23:00 91 18 111/63 (79) 94 04/10/20 22:30 93 18 107/68 (81) 94 04/10/20 22:00 18 100/50 Mechanical Ventilator 100 04/10/20 22:00 18 100 04/10/20 22:00 94 33 105/66 (79) 92 04/10/20 21:30 99 19 100/64 (76) 90 04/10/20 21:00 96 04/10/20 21:00 101 19 106/60 (75) 87 04/10/20 21:00 18 103/95 Mechanical Ventilator 100 04/10/20 21:00 18 Mechanical Ventilator 100 04/10/20 21:00 103 94/52 04/10/20 21:00 65 04/10/20 20:30 108 21 92/56 (68) 85 04/10/20 20:00 22 111/63 Mechanical Ventilator 100 04/10/20 20:00 18 Mechanical Ventilator 100 04/10/20 20:00 Mechanical Ventilator 04/10/20 20:00 99.5 109 23 106/61 (76) 84 04/10/20 19:59 24 Mechanical Ventilator 100 04/10/20 19:29 104 25 100 04/10/20 19:18 20 147/66 Mechanical Ventilator 65 04/10/20 19:00 107 24 80 04/10/20 18:45 105 24 84 04/10/20 18:44 104 24 154/75 (101) 84 04/10/20 18:30 115 27 72 04/10/20 18:15 93 20 86 04/10/20 18:05 20 146/56 65 04/10/20 18:05 20 Mechanical Ventilator 65 04/10/20 18:00 93 20 137/66 (89) 87 04/10/20 18:00 20 157/89 04/10/20 18:00 20 Mechanical Ventilator 65 04/10/20 17:45 85 18 90 Height (Feet): 5 Height (Inches): 10.00 Weight (Pounds): 240 General Appearance: other - on vent, no pressors, fio2-100 % HEENT: normocephalic, atraumatic, anicteric Respiratory/Chest: crackles/rales, rhonchi - bilaterally Cardiovascular: normal rate, regular rhythm, no gallop/murmur Abdomen: normal bowel sounds, soft, non tender, no organomegaly, non distended Genitourinary: other - + joseph Extremities: no cyanosis Skin: no rash Neurologic/Psychiatric: other - sedated, weak Lymphatic: no neck adenopathy Musculoskeletal: no effusion CT chest: IMPRESSION: There are mild subpleural ground-glass and consolidating infiltrates in the dependent portions of both lower lobes and to lesser degree the upper lobes consistent with bilateral pneumonia. The infiltrates are typical for Covid 19. No evidence of pulmonary embolus. CT abdomen and pelvis: IMPRESSION: 1. Scattered hepatic hypodense lesions, too small to characterize on this examination without intravenous contrast. 2. Colonic diverticulosis without evidence of acute diverticulitis. 3. Scattered enlarged mesenteric lymph nodes, presumably reactive. teral pneumonia. The infiltrates are typical for Covid 19. No evidence of pulmonary embolus. Chest x-ray - 12/19/19 - Indication: Shortness of breath Technique: One view of the chest Comparison: 02/17/2020 Findings: Interim worsening of bilateral infiltrates, particularly on the right. The heart is borderline enlarged. The pleural spaces are clear. Left arm PICC is again demonstrated Impression: Worsening bilateral infiltrates over one day, likely pneumonia CT chest - 02/19/20 - IMPRESSION: Increased extensive patchy ground-glass opacities and densities throughout the lungs, suggestive of Covid 19 infection. Chest x-ray 02/23/20 - Procedure: XRAY Chest 1v As Indication: Reason For Exam: INFECT Technique: One view of the chest Comparison: 02/20/2020 Findings: Allowing for differences in exposure technique, bilateral mid and lower lung infiltrates are probably unchanged. The heart size is normal. The pleural spaces are clear. Impression: Unchanged, over 4 days, findings as above. Chest x-ray - 02/25/20 - FINDINGS: Lungs: Interval slightly worsening bilateral airspace disease. Pleural space: Unremarkable. No pneumothorax. Heart: Unremarkable. No cardiomegaly. Mediastinum: Unremarkable. Bones/joints: Unremarkable. IMPRESSION: Interval slightly worsening bilateral airspace disease. Chest x-ray - 03/02/20 - Procedure: XRAY Chest 1v Indication: Shortness of breath Technique: One view of the chest Comparison: 02/25/2020 Findings: Bilateral interstitial and airspace infiltrates are unchanged. The heart size is normal. Left arm PICC is again demonstrated Impression: Unchanged, over one day, findings as above. Chest x-ray - 03/06/20 - Procedure: XRAY Chest 1v Indication: Shortness of breath Technique: One view of the chest Comparison: 03/02/2020 Findings: Bilateral infiltrates are unchanged. Normal heart size. Pleural spaces are clear Chest x-ray - 03/12/10 - Impression: COMPARISON: Chest radiograph March 06, 2020. FINDINGS/IMPRESSION: Improving basilar infiltrates. Follow chest radiograph recommended. The upper lung finley are clear. No pneumothorax. Stable cardiomegaly. Stable left upper extremity PICC line. anged, over 4 days, findings as above. Chest x-ray - 03/17/20 - Procedure: XRAY Chest 1v Indication: Shortness of breath Technique: One view of the chest Comparison: 03/12/2020 Findings: Left arm PICC is again demonstrated. Infiltrates are unchanged. The heart size is upper limits of normal. Impression: Unchanged, over 5 days, findings as above. Abdominal US - IMPRESSION: 1. Gallbladder is normal. 2. Hepatic steatosis. 3. 1.7 cm cyst right kidney. Impression. Chest x-ray - Procedure: XRAY Chest 1v Indication: Shortness of breath Technique: One view of the chest Comparison: 03/17/2020 Findings: Bilateral right greater than left infiltrates again demonstrated. The heart size is normal. There is a left arm PICC in good position. Impression: Unchanged, over 5 days, findings as above. Chest x-ray - 03/29/20 - Procedure: XRAY Chest 1v Indication: Cough Technique: One view of the chest Comparison: 03/28/2020 Findings: Bilateral infiltrates are unchanged or slightly worse, allowing for differences in exposure technique. The pleural spaces are clear. The heart size is normal. Stable satisfactory position of endotracheal tube, left arm PICC. Orogastric tube has retracted somewhat the position remains satisfactory. Impression: Stable to slightly worse bilateral infiltrates. Otherwise little exchange specialist one day Chest x-ray - 03/31/20 - Procedure: XRAY Chest 1v Indication: Post endotracheal tube repositioning Technique: One view of the chest Comparison: 3 hours earlier Findings: Interim advancement of endotracheal tube, tip projecting approximately 5 cm above the sunny. Interim advancement of orogastric tube as well. Bilateral infiltrates are unchanged. Left arm PICC remains Impression: Improved and now satisfactory tube positions as described. ICU nurse Maeve notified at the time of interpretation Chest x-ray - 04/02/20 - COMPARISON: Chest x-rays dated 03/31/20 and 03/12/20. FINDINGS: Lungs: No significant change in bilateral prominent interstitial markings. The lungs are otherwise clear without focal consolidation. Pleural space: Unremarkable. The costophrenic angles are sharp. No visible pneumothorax. Heart: Unremarkable. No cardiomegaly. Mediastinum: Unremarkable. Bones/joints: Unremarkable. Tubes, lines and devices: Endotracheal tube tip 6.5 cm above the sunny. NG tube tip in the distal stomach. Telemetry leads overlie the thorax. IMPRESSION: No significant change in bilateral prominent interstitial markings. Procedure: XRAY Chest 1v Procedure: XRAY Chest 1v Reason for study: Shortness of breath 04/06/20 - Comparison films: 04/02/2020. FINDINGS: Endotracheal tube and NG tube remain in place. There is worsening of right basilar infiltrates. Some haziness in left lung base unchanged. Cardiac and mediastinal silhouette are within normal limits. CP angles are sharp. The bony thorax appear unremarkable. IMPRESSION: Worsening of right basilar infiltrate. Chest x-ray - 04/09/20 - Procedure: XRAY Chest 1v FILM CXR 1 VIEW INDICATION: Infection COMPARISON: April 05, 2020 FINDINGS: Single frontal view demonstrates a normal cardiomediastinal silhouette. Endotracheal tube in place with tip above the sunny. Elevation of the right hemidiaphragm. Interstitial prominence with bilateral lower lobe infiltrates. Lung bases appear worse from the prior exam. Small right effusion. Right-sided PICC line with tip in the superior vena cava. Enteric tube in place. IMPRESSION: Interstitial prominence and bilateral lower lobe pneumonia with worsening appearance from the prior study. Microbiology Date/Time Source Procedure Growth Status 04/02/20 16:35 Blood Blood Culture - Final NO GROWTH AFTER 5 DAYS Complete 03/29/20 18:57 Indwelling Cath Urine Culture - Final NO GROWTH AFTER 48 HOURS Complete 03/29/20 18:57 Sputum Gram Stain - Final Complete 03/29/20 18:57 Sputum Culture - Final Kat Albicans Usual Upper Respiratory Hillary Complete Laboratory Tests Test 04/10/20 19:31 04/11/20 04:00 Arterial Blood pH 7.426 (7.350-7.450) Arterial Blood Partial Pressure CO2 52.2 mmHg (35.0-45.0) H Arterial Blood Partial Pressure O2 42.5 mmHg (75.0-100.0) Arterial Blood HCO3 33.6 mmol/L (22.0-26.0) H Arterial Blood Oxygen Saturation 79.8 % (95-100) *L Arterial Blood Base Excess 7.8 (-2-2) H Shemar Test Positive White Blood Count 5.7 K/UL (4.8-10.8) Red Blood Count 3.48 M/UL (4.70-6.10) L Hemoglobin 10.1 G/DL (14.2-18.0) L Hematocrit 31.9 % (42.0-52.0) L Mean Corpuscular Volume 92 FL (80-99) Mean Corpuscular Hemoglobin 28.9 PG (27.0-31.0) Mean Corpuscular Hemoglobin Concent 31.5 G/DL (32.0-36.0) L Red Cell Distribution Width 17.5 % (11.6-14.8) H Platelet Count 182 K/UL (150-450) Mean Platelet Volume 7.7 FL (6.5-10.1) Neutrophils (%) (Auto) % (45.0-75.0) Lymphocytes (%) (Auto) % (20.0-45.0) Monocytes (%) (Auto) % (1.0-10.0) Eosinophils (%) (Auto) % (0.0-3.0) Basophils (%) (Auto) % (0.0-2.0) Differential Total Cells Counted 100 Neutrophils % (Manual) 85 % (45-75) H Lymphocytes % (Manual) 7 % (20-45) L Monocytes % (Manual) 7 % (1-10) Eosinophils % (Manual) 0 % (0-3) Basophils % (Manual) 0 % (0-2) Band Neutrophils 1 % (0-8) Platelet Estimate Adequate Platelet Morphology Normal Polychromasia 1+ Hypochromasia 1+ Anisocytosis 1+ Sodium Level 142 MMOL/L (136-145) Potassium Level 5.2 MMOL/L (3.5-5.1) H Chloride Level 107 MMOL/L (98-107) Carbon Dioxide Level 33 MMOL/L (21-32) H Anion Gap 2 mmol/L (5-15) L Blood Urea Nitrogen 17 mg/dL (7-18) Creatinine 0.4 MG/DL (0.55-1.30) L Estimat Glomerular Filtration Rate > 60 mL/min (>60) Glucose Level 135 MG/DL (74-106) H Uric Acid 1.8 MG/DL (2.6-7.2) L Calcium Level 7.9 MG/DL (8.5-10.1) L Phosphorus Level 3.9 MG/DL (2.5-4.9) Magnesium Level 2.2 MG/DL (1.8-2.4) Total Bilirubin 0.8 MG/DL (0.2-1.0) Aspartate Amino Transf (AST/SGOT) 98 U/L (15-37) H Alanine Aminotransferase (ALT/SGPT) 365 U/L (12-78) H Alkaline Phosphatase 379 U/L (46-116) H C-Reactive Protein, Quantitative 3.6 mg/dL (0.00-0.90) H Pro-B-Type Natriuretic Peptide 624 pg/mL (0-125) H Total Protein 4.6 G/DL (6.4-8.2) L Albumin 1.6 G/DL (3.4-5.0) L Globulin 3.0 g/dL Albumin/Globulin Ratio 0.5 (1.0-2.7) L Current Medications Medications (Trade) Dose Ordered Sig/Dennis Route PRN Reason Start Time Stop Time Status Last Admin Dose Admin Amlodipine Besylate (Norvasc) 2.5 mg EVERY 12 HOURS NG 04/08/20 21:00 05/06/20 18:44 04/11/20 08:49 Bisacodyl (Dulcolax) 10 mg Q12H PRN RECTAL Constipation 03/18/20 16:45 06/16/20 16:44 Chlorhexidine Gluconate (Marlen-Hex 2%) 1 applic DAILY@2000 TOPIC 03/30/20 20:00 06/28/20 19:59 04/10/20 20:00 Dextrose (Dextrose 50%) 25 ml Q30M PRN IV Hypoglycemia 03/29/20 20:45 06/27/20 20:44 Dextrose (Dextrose 50%) 50 ml Q30M PRN IV Hypoglycemia 03/29/20 20:45 06/27/20 20:44 Enoxaparin Sodium (Lovenox) 80 mg EVERY 12 HOURS SUBQ 04/06/20 21:00 07/05/20 20:59 04/11/20 08:50 Fentanyl Citrate 250 ml @ 1 mls/hr Q24H IV 04/09/20 20:45 04/11/20 20:44 04/11/20 08:55 Hydralazine HCl (Apresoline) 10 mg Q4H PRN IV For High Blood Pressure 03/30/20 12:15 06/28/20 12:14 04/03/20 21:00 Insulin Aspart (NovoLOG) Q6HR SUBQ 03/30/20 00:00 06/28/20 00:00 04/11/20 06:24 Labetalol HCl (Normodyne) 10 mg Q4H PRN IV sbp greater tahtn 160 03/28/20 17:30 04/27/20 17:29 Methylprednisolone Sodium Succinate (Solu-MEDROL) 40 mg EVERY 8 HOURS IVP 03/22/20 14:00 06/20/20 13:59 04/11/20 14:43 Metoclopramide HCl (Reglan) 10 mg Q6H IVP 03/30/20 15:00 04/29/20 14:59 04/11/20 14:43 Micafungin Sodium 100 mg/Sodium Chloride 100 ml @ 100 mls/hr Q24H IVPB 04/09/20 15:00 04/22/20 23:59 04/11/20 14:43 Midazolam HCl 100 mg/Sodium Chloride 200 ml @ 24 mls/hr Q24H PRN IV To Patient Comfort 04/11/20 16:30 04/13/20 16:29 04/11/20 16:30 Pantoprazole (Protonix) 40 mg EVERY 12 HOURS IVP 04/01/20 21:00 05/01/20 20:59 04/11/20 08:48 Sodium Chloride 1,000 ml @ 30 mls/hr Q24H IV 04/07/20 21:00 05/07/20 20:59 04/11/20 16:34 Trimethoprim/ Sulfamethoxazole (Bactrim-DS) 1 tab Q24H ORAL 03/29/20 17:00 05/10/20 16:59 04/11/20 16:38 Vitamin D (Vitamin D) 10,000 unit DAILY GT 04/07/20 09:00 04/14/20 08:59 04/11/20 10:53 Kisha Salazar MD Apr 11, 2020 17:41
--- NOTE | 2020-04-11 18:03 | Cardiology Progress Note ---
Assessment/Plan Assessment/Plan Acute covid 19 pneumonia hypoxemia infiltrate bilat bacteremia hypernatremia / hyponatremia mild abn lfts tachy post intubation fever fungemia dvt upper ext improved earlier oxygen dialed down to 85% but desaturated now back up to 100 % agian full sedated low grade fevers cxr shosw worsening of lower lobe infiltrates hypoxemia unlikely cardiac related tube feeding being tolerated echo reviewed last on 03/28 still shows normal lv function no valve pathology 04/09 cxr reviwed worsening loer lobes will reorder for tomorrow wbc improved tele reviewed sinus remains critical now is on full dose anticoag due to dvt ue \ repeat cxr and ekg in am is getting diuretic again covid pcr negative , however considering that it took 3 tests to finally initially identify his covid infection i am not sure if we can trust Subjective ROS Limited/Unobtainable: Yes Subjective per rn Ptresting quietly in bed sedated,noted no resp distress orally intubated,ETT 8.0,lip line 24,AC 18,TV 700 Fio2 90%,Peep5,no signs of pain or discomfort,S-R on the monitor, Objective Last 24 Hour Vital Signs Date Time Temp Pulse Resp B/P (MAP) Pulse Ox O2 Delivery O2 Flow Rate FiO2 04/11/20 17:05 64 18 108/67 (81) 95 04/11/20 17:00 18 Mechanical Ventilator 100 04/11/20 17:00 18 109/57 Mechanical Ventilator 85 04/11/20 16:30 18 Mechanical Ventilator 85 04/11/20 16:13 98.9 69 18 89 04/11/20 16:09 Mechanical Ventilator 04/11/20 16:00 85 04/11/20 16:00 68 18 101/47 (65) 89 04/11/20 16:00 18 101/47 Mechanical Ventilator 85 04/11/20 16:00 69 04/11/20 15:00 18 105/58 Mechanical Ventilator 85 04/11/20 15:00 67 18 105/58 (74) 93 04/11/20 14:00 18 89/51 Mechanical Ventilator 85 04/11/20 14:00 63 18 89/51 (64) 93 04/11/20 13:00 18 90/52 Mechanical Ventilator 85 04/11/20 13:00 66 18 90/52 (65) 93 04/11/20 12:00 85 04/11/20 12:00 Mechanical Ventilator 04/11/20 12:00 98.9 68 18 96/55 (69) 93 04/11/20 12:00 79 04/11/20 12:00 18 Mechanical Ventilator 85 04/11/20 12:00 18 96/55 Mechanical Ventilator 85 04/11/20 11:58 74 04/11/20 11:40 75 18 90 04/11/20 11:00 18 Mechanical Ventilator 85 04/11/20 11:00 18 124/67 Mechanical Ventilator 85 04/11/20 11:00 79 18 124/67 (86) 94 04/11/20 10:00 69 18 94/51 (65) 92 04/11/20 10:00 18 Mechanical Ventilator 85 04/11/20 10:00 18 102/54 Mechanical Ventilator 85 04/11/20 09:00 65 18 101/58 (72) 94 04/11/20 09:00 18 Mechanical Ventilator 85 04/11/20 09:00 18 101/58 Mechanical Ventilator 85 04/11/20 09:00 85 04/11/20 08:58 18 Mechanical Ventilator 85 04/11/20 08:55 18 100/57 Mechanical Ventilator 85 04/11/20 08:49 64 100/57 04/11/20 08:00 99.0 65 18 98/55 (69) 95 04/11/20 08:00 Mechanical Ventilator 04/11/20 08:00 90 04/11/20 08:00 73 04/11/20 07:30 65 18 100/58 (72) 96 04/11/20 07:07 64 18 90 04/11/20 07:00 18 105/60 Mechanical Ventilator 90 04/11/20 07:00 18 102/60 Mechanical Ventilator 90 04/11/20 07:00 66 18 94/54 (67) 96 04/11/20 06:30 68 18 96/58 (71) 97 04/11/20 06:00 18 103/60 Mechanical Ventilator 90 04/11/20 06:00 18 103/54 Mechanical Ventilator 04/11/20 06:00 71 18 96/56 (69) 96 04/11/20 05:30 75 18 100/60 (73) 96 04/11/20 05:00 18 100/64 Endotracheal Tube 90 04/11/20 05:00 18 100/60 Simple Mask 90 04/11/20 05:00 79 18 113/66 (82) 95 04/11/20 04:30 75 18 106/74 (85) 96 04/11/20 04:00 99.0 79 18 102/65 (77) 97 04/11/20 04:00 65 04/11/20 04:00 Mechanical Ventilator 04/11/20 04:00 20 102/65 Mechanical Ventilator 100 04/11/20 04:00 66 04/11/20 03:30 79 18 111/64 (80) 97 04/11/20 03:10 18 103/67 Mechanical Ventilator 100 04/11/20 03:09 77 18 90 04/11/20 03:00 18 111/80 Mechanical Ventilator 100 04/11/20 03:00 80 18 114/69 (84) 98 04/11/20 02:30 81 18 108/70 (83) 98 04/11/20 02:30 81 18 108/70 (83) 98 04/11/20 02:00 83 18 108/67 (81) 97 04/11/20 02:00 83 18 108/67 (81) 97 04/11/20 02:00 18 106/67 Mechanical Ventilator 100 04/11/20 01:30 83 18 102/65 (77) 97 04/11/20 01:30 83 18 102/65 (77) 97 04/11/20 01:00 85 18 110/64 (79) 97 04/11/20 01:00 18 102/65 Mechanical Ventilator 100 04/11/20 01:00 18 Mechanical Ventilator 100 04/11/20 01:00 85 18 110/64 (79) 97 04/11/20 01:00 85 18 110/64 (79) 97 04/11/20 00:45 86 18 96 04/11/20 00:30 87 18 101/69 (80) 96 04/11/20 00:30 87 18 101/69 (80) 96 04/11/20 00:30 87 18 101/69 (80) 96 04/11/20 00:15 87 18 95 04/11/20 00:00 88 18 109/65 (80) 95 04/11/20 00:00 100.0 88 18 109/65 (80) 95 04/11/20 00:00 82 04/11/20 00:00 65 04/11/20 00:00 18 102/65 Mechanical Ventilator 100 04/11/20 00:00 18 Mechanical Ventilator 100 04/11/20 00:00 Mechanical Ventilator 04/10/20 23:30 92 18 104/65 (78) 94 04/10/20 23:19 89 18 100 04/10/20 23:00 18 111/63 Mechanical Ventilator 100 04/10/20 23:00 18 Mechanical Ventilator 100 04/10/20 23:00 91 18 111/63 (79) 94 04/10/20 22:30 93 18 107/68 (81) 94 04/10/20 22:00 18 100/50 Mechanical Ventilator 100 04/10/20 22:00 18 100 04/10/20 22:00 94 33 105/66 (79) 92 04/10/20 21:30 99 19 100/64 (76) 90 04/10/20 21:00 96 04/10/20 21:00 101 19 106/60 (75) 87 04/10/20 21:00 18 103/95 Mechanical Ventilator 100 04/10/20 21:00 18 Mechanical Ventilator 100 04/10/20 21:00 103 94/52 04/10/20 21:00 65 04/10/20 20:30 108 21 92/56 (68) 85 04/10/20 20:00 22 111/63 Mechanical Ventilator 100 04/10/20 20:00 18 Mechanical Ventilator 100 04/10/20 20:00 Mechanical Ventilator 04/10/20 20:00 99.5 109 23 106/61 (76) 84 04/10/20 19:59 24 Mechanical Ventilator 100 04/10/20 19:29 104 25 100 04/10/20 19:18 20 147/66 Mechanical Ventilator 65 04/10/20 19:00 107 24 80 04/10/20 18:45 105 24 84 04/10/20 18:44 104 24 154/75 (101) 84 04/10/20 18:30 115 27 72 04/10/20 18:15 93 20 86 04/10/20 18:05 20 146/56 65 04/10/20 18:05 20 Mechanical Ventilator 65 04/10/20 18:00 93 20 137/66 (89) 87 04/10/20 18:00 20 157/89 04/10/20 18:00 20 Mechanical Ventilator 65 General Appearance: no apparent distress, on vent, patient on isolation, isolation precautions Extremities: no swelling Intake and Output 04/10/20 04/11/20 19:00 07:00 Intake Total 2441.7 ml 1953.0 ml Output Total 490 ml 170 ml Balance 1951.7 ml 1783.0 ml Intake Oral 0 ml 0 ml Free Water 850 ml 150 ml IV Total 821.7 ml 1153.0 ml Tube Feeding 550 ml 600 ml Blood Product 0 ml Other 220 ml 50 ml Output Urine Total 440 ml 170 ml Stool Total 50 ml # Voids 2 580 # Bowel Movements 1 Laboratory Tests Test 04/10/20 19:31 04/11/20 04:00 Arterial Blood pH 7.426 (7.350-7.450) Arterial Blood Partial Pressure CO2 52.2 mmHg (35.0-45.0) H Arterial Blood Partial Pressure O2 42.5 mmHg (75.0-100.0) Arterial Blood HCO3 33.6 mmol/L (22.0-26.0) H Arterial Blood Oxygen Saturation 79.8 % (95-100) *L Arterial Blood Base Excess 7.8 (-2-2) H Shemar Test Positive White Blood Count 5.7 K/UL (4.8-10.8) Red Blood Count 3.48 M/UL (4.70-6.10) L Hemoglobin 10.1 G/DL (14.2-18.0) L Hematocrit 31.9 % (42.0-52.0) L Mean Corpuscular Volume 92 FL (80-99) Mean Corpuscular Hemoglobin 28.9 PG (27.0-31.0) Mean Corpuscular Hemoglobin Concent 31.5 G/DL (32.0-36.0) L Red Cell Distribution Width 17.5 % (11.6-14.8) H Platelet Count 182 K/UL (150-450) Mean Platelet Volume 7.7 FL (6.5-10.1) Neutrophils (%) (Auto) % (45.0-75.0) Lymphocytes (%) (Auto) % (20.0-45.0) Monocytes (%) (Auto) % (1.0-10.0) Eosinophils (%) (Auto) % (0.0-3.0) Basophils (%) (Auto) % (0.0-2.0) Differential Total Cells Counted 100 Neutrophils % (Manual) 85 % (45-75) H Lymphocytes % (Manual) 7 % (20-45) L Monocytes % (Manual) 7 % (1-10) Eosinophils % (Manual) 0 % (0-3) Basophils % (Manual) 0 % (0-2) Band Neutrophils 1 % (0-8) Platelet Estimate Adequate Platelet Morphology Normal Polychromasia 1+ Hypochromasia 1+ Anisocytosis 1+ Sodium Level 142 MMOL/L (136-145) Potassium Level 5.2 MMOL/L (3.5-5.1) H Chloride Level 107 MMOL/L (98-107) Carbon Dioxide Level 33 MMOL/L (21-32) H Anion Gap 2 mmol/L (5-15) L Blood Urea Nitrogen 17 mg/dL (7-18) Creatinine 0.4 MG/DL (0.55-1.30) L Estimat Glomerular Filtration Rate > 60 mL/min (>60) Glucose Level 135 MG/DL (74-106) H Uric Acid 1.8 MG/DL (2.6-7.2) L Calcium Level 7.9 MG/DL (8.5-10.1) L Phosphorus Level 3.9 MG/DL (2.5-4.9) Magnesium Level 2.2 MG/DL (1.8-2.4) Total Bilirubin 0.8 MG/DL (0.2-1.0) Aspartate Amino Transf (AST/SGOT) 98 U/L (15-37) H Alanine Aminotransferase (ALT/SGPT) 365 U/L (12-78) H Alkaline Phosphatase 379 U/L (46-116) H C-Reactive Protein, Quantitative 3.6 mg/dL (0.00-0.90) H Pro-B-Type Natriuretic Peptide 624 pg/mL (0-125) H Total Protein 4.6 G/DL (6.4-8.2) L Albumin 1.6 G/DL (3.4-5.0) L Globulin 3.0 g/dL Albumin/Globulin Ratio 0.5 (1.0-2.7) L Objective pt in covid 19 isoaltion with acute infection Manan Awan MD Apr 11, 2020 18:03
[2020-04-11] MEDS: Vancomycin 1gm/D5W 275ml IVPB SCH ×2 (18:30)
--- NOTE | 2020-04-11 19:24 | NUR ---
NURSE HAND-OFF REPORT: Latest Vital Signs: Temperature 98.9 , Pulse 63 , B/P 108 /60 , Respiratory Rate 18 , O2 SAT 96 , Mechanical Ventilator, O2 Flow Rate . Vital Sign Comment: unstable EKG Rhythm: Sinus Rhythm Rhythm change?: N MD Notified?:- MD Response: Message left await call Latest Hassan Fall Score: 35 Fall Risk: Medium Risk Safety Measures: Call light Within Reach, Bed Alarm Zone 3, Side Rails Side Rails x3, Bed position Low and Locked. Fall Precautions: Yellow Socks Yellow Gown Door Sign Patient Fall Education Report given to Roque Gonzalez RN.
--- NOTE | 2020-04-11 20:20 | NUR ---
NURSE NOTES: received report from pt on fent drip at 300mcg/min and versed drip at 16 mg/hr with -2 RASS ORALLY INTUBATED -VENT O2 SAT 96 % NO RESP DISTRESS NOTED TOLERATING TUBE FEEDING NO RESIDUAL URINARY OUT PUT GOOD REPOSITION AND SUCTION
[2020-04-11] MEDS: Amikacin 1,250 MG in NS 110 ML IV SCH (21:00)
[2020-04-11] MEDS: Dyna-Hex 2% Top Sol 2oz TOPIC SCH (21:00)
[2020-04-12] VITALS (32 sets, daily range): BP systolic 97–183; BP diastolic 49–78
--- NOTE | 2020-04-12 | NUR ---
NURSE NOTES: bs 141
[2020-04-12] MEDS: Solu-MEDROL 40mg Inj IVP SCH ×3 (00:19→20:27)
[2020-04-12] MEDS: Midazolam HCl 50mg/10ml vial 100 MG in NS 180 ML IV PRN ×4 (00:24→20:00)
--- NOTE | 2020-04-12 02:01 | Cardiology Report ---
APPROVED REPORT EKG Measurement Heart [id number] <Conclusion> Normal sinus rhythm Normal ECG
--- NOTE | 2020-04-12 02:06 | Cardiology Report ---
APPROVED REPORT EKG Measurement Heart [id number] <Conclusion> Normal sinus rhythm Early repolarization vs acute inferior injury Abnormal ECG
[2020-04-12] MEDS: Vancomycin 1gm/D5W 275ml IVPB SCH ×4 (02:53→10:16)
[2020-04-12] MEDS: Metoclopramide 10mg/2ml Inj IVP SCH ×4 (02:56→20:26)
--- NOTE | 2020-04-12 04:00 | NUR ---
complete bed bath NURSE NOTES: NURSE NOTES: complete bed bath reposition and suction
[2020-04-12] MEDS: NovoLOG Insulin Flexpen SUBQ SCH ×4 (05:28→17:40)
[2020-04-12 07:06] LABS: HEMATOCRIT 28.1 % (42.0-52.0); MEAN CORPUSCULAR VOLUME 90 FL (80-99); PLATELET COUNT 173 K/UL (150-450); RED BLOOD COUNT 3.12 M/UL (4.70-6.10); RED CELL DISTRIBUTION WIDTH 17.2 % (11.6-14.8); WHITE BLOOD COUNT 4.6 K/UL (4.8-10.8)
--- NOTE | 2020-04-12 07:22 | NUR ---
NURSE NOTES: Received report and patient from PRIYANKA Bulladr. Pt is Sedated, RASS -2 on Fentanyl 300mcg/hr and Versed 10mg/hr. Pt orally intubated; ETT 8.0, 25cm @ the lip line. AC 18, TV 750, PEEP 5, FiO2 100%; O2sat 98% on hat measurer. Pt has an OGT, running Glucerna @ 50mL/hr (goal). Rectal tube in place. Brownlee catheter present and draining with gravity to urometer. ALBERT PICC in place running sedating and 1/2 NS @ 60mL/hr. Saline locked PIV Lt FA 18g. Pt received and maintained on a Right Wrist restraint for safety d/t attempting to pull tubing. Left arm weak, with swelling visible. Will collect urine and sputum as ordered yesterday. Bed locked and in lowest position, with call light within reach. Will resume plan of care.
--- NOTE | 2020-04-12 07:41 | NUR ---
NURSE NOTES: XRAY at bedside.
[2020-04-12 07:50] LABS: ALANINE AMINOTRANSFERASE 271 U/L (12-78); ALBUMIN 1.5 G/DL (3.4-5.0); ALBUMIN/GLOBULIN RATIO 0.5 (1.0-2.7); ALKALINE PHOSPHATASE 323 U/L (46-116); ANION GAP 2 mmol/L (5-15); ASPARTATE AMINO TRANSFERASE 59 U/L (15-37); BILIRUBIN,TOTAL 0.6 MG/DL (0.2-1.0); BLOOD UREA NITROGEN 18 mg/dL (7-18); CALCIUM 7.7 MG/DL (8.5-10.1); CARBON DIOXIDE 34 MMOL/L (21-32); CHLORIDE 105 MMOL/L (98-107); CREATININE 0.5 MG/DL (0.55-1.30); PHOSPHORUS 3.6 MG/DL (2.5-4.9); POTASSIUM 4.2 MMOL/L (3.5-5.1); SODIUM 141 MMOL/L (136-145)
[2020-04-12] MEDS: Enoxaparin 80mg Inj SUBQ SCH ×2 (08:02→20:28)
[2020-04-12] MEDS: Pantoprazole Inj IVP SCH ×2 (08:02→20:27)
--- NOTE | 2020-04-12 08:30 | NUR ---
NURSE NOTES: Dr Quintero rounding on the unit. Updated him on pt's current condition. No new orders given
[2020-04-12] MEDS: Vitamin D 1000 units Tab GT SCH (08:31)
--- NOTE | 2020-04-12 09:19 | NUR ---
RESPIRATORY NOTE: FiO2 titrated to 95%. Current SpO2 is 92%. No s/s of respiratory distress. Will continue to monitor.
--- NOTE | 2020-04-12 09:24 | General Progress Note ---
Subjective ROS Limited/Unobtainable: No Allergies: Coded Allergies: No Known Allergies (Unverified , 02/05/20) Objective Last 24 Hour Vital Signs Date Time Temp Pulse Resp B/P (MAP) Pulse Ox O2 Delivery O2 Flow Rate FiO2 04/12/20 09:00 65 18 107/54 (71) 93 04/12/20 08:30 63 18 120/59 (79) 95 04/12/20 08:01 20 Mechanical Ventilator 100 04/12/20 08:00 100 04/12/20 08:00 Mechanical Ventilator 04/12/20 08:00 97.9 62 18 117/58 (77) 94 04/12/20 08:00 65 04/12/20 07:30 59 18 141/73 (95) 97 04/12/20 07:00 18 141/73 Mechanical Ventilator 100 04/12/20 07:00 18 Mechanical Ventilator 100 04/12/20 07:00 99 12 138/77 (97) 97 04/12/20 06:00 69 18 141/78 (99) 99 04/12/20 06:00 18 141/73 Mechanical Ventilator 100 04/12/20 06:00 18 Mechanical Ventilator 100 04/12/20 05:00 18 141/78 Mechanical Ventilator 100 04/12/20 05:00 18 100 04/12/20 05:00 66 19 122/67 (85) 94 04/12/20 04:00 60 04/12/20 04:00 Mechanical Ventilator 04/12/20 04:00 98.4 56 18 100/53 (69) 98 04/12/20 04:00 20 102/60 Mechanical Ventilator 100 04/12/20 04:00 18 107/64 Mechanical Ventilator 100 04/12/20 04:00 18 100 04/12/20 04:00 85 04/12/20 03:10 55 18 100 04/12/20 03:00 57 18 98/53 (68) 97 04/12/20 03:00 20 100/50 Mechanical Ventilator 100 04/12/20 03:00 18 Mechanical Ventilator 100 04/12/20 02:00 60 18 97/52 (67) 97 04/12/20 02:00 20 100/60 Mechanical Ventilator 100 04/12/20 01:00 64 18 120/63 (82) 98 04/12/20 01:00 20 100/50 Mechanical Ventilator 100 04/12/20 00:24 22 96/40 Mechanical Ventilator 100 04/12/20 00:24 18 Mechanical Ventilator 100 04/12/20 00:00 Mechanical Ventilator 04/12/20 00:00 85 04/12/20 00:00 18 97/50 Mechanical Ventilator 100 04/12/20 00:00 99.0 63 18 115/61 (79) 98 04/12/20 00:00 60 04/11/20 23:10 60 18 100 04/11/20 23:00 61 18 94/50 (65) 98 04/11/20 22:45 18 128/80 Mechanical Ventilator 100 04/11/20 22:00 18 100/50 Mechanical Ventilator 100 04/11/20 22:00 Mechanical Ventilator 04/11/20 22:00 64 18 95/48 (64) 97 04/11/20 21:00 60 18 99/52 (68) 97 04/11/20 21:00 20 100/50 Mechanical Ventilator 100 04/11/20 21:00 18 Mechanical Ventilator 100 04/11/20 20:00 Mechanical Ventilator 04/11/20 20:00 20 100/50 Mechanical Ventilator 100 04/11/20 20:00 18 Mechanical Ventilator 100 04/11/20 20:00 63 04/11/20 20:00 98.9 61 18 101/53 (69) 96 04/11/20 20:00 85 04/11/20 19:20 63 18 100 04/11/20 19:00 63 18 108/60 (76) 96 04/11/20 19:00 18 Mechanical Ventilator 100 04/11/20 19:00 18 108/60 Mechanical Ventilator 100 04/11/20 18:36 18 105/54 100 04/11/20 18:00 18 Mechanical Ventilator 100 04/11/20 18:00 65 18 101/53 (69) 94 04/11/20 17:05 64 18 108/67 (81) 95 04/11/20 17:00 18 Mechanical Ventilator 100 04/11/20 17:00 18 109/57 Mechanical Ventilator 85 04/11/20 16:30 18 Mechanical Ventilator 85 04/11/20 16:13 98.9 69 18 89 04/11/20 16:09 Mechanical Ventilator 04/11/20 16:00 85 04/11/20 16:00 68 18 101/47 (65) 89 04/11/20 16:00 18 101/47 Mechanical Ventilator 85 04/11/20 16:00 69 04/11/20 15:00 18 105/58 Mechanical Ventilator 85 04/11/20 15:00 67 18 105/58 (74) 93 04/11/20 15:00 65 18 100 04/11/20 14:00 18 89/51 Mechanical Ventilator 85 04/11/20 14:00 63 18 89/51 (64) 93 04/11/20 13:00 18 90/52 Mechanical Ventilator 85 04/11/20 13:00 66 18 90/52 (65) 93 04/11/20 12:00 85 04/11/20 12:00 Mechanical Ventilator 04/11/20 12:00 98.9 68 18 96/55 (69) 93 04/11/20 12:00 79 04/11/20 12:00 18 Mechanical Ventilator 85 04/11/20 12:00 18 96/55 Mechanical Ventilator 85 04/11/20 11:58 74 04/11/20 11:40 75 18 90 04/11/20 11:00 18 Mechanical Ventilator 85 04/11/20 11:00 18 124/67 Mechanical Ventilator 85 04/11/20 11:00 79 18 124/67 (86) 94 04/11/20 10:00 69 18 94/51 (65) 92 04/11/20 10:00 18 Mechanical Ventilator 85 04/11/20 10:00 18 102/54 Mechanical Ventilator 85 Intake and Output 04/11/20 04/12/20 19:00 07:00 Intake Total 2174 ml 2215.416 ml Output Total 1005 ml 675 ml Balance 1169 ml 1540.416 ml Free Water 400 ml 150 ml IV Total 1124 ml 1465.416 ml Tube Feeding 550 ml 600 ml Other 100 ml Output Urine Total 980 ml 675 ml Stool Total 25 ml # Voids 155 # Bowel Movements 10 Laboratory Tests 04/12/20 05:47: White Blood Count 4.6L, Red Blood Count 3.12L, Hemoglobin 9.0L, Hematocrit 28.1L , Mean Corpuscular Volume 90, Mean Corpuscular Hemoglobin 28.7, Mean Corpuscular Hemoglobin Concent 31.9L, Red Cell Distribution Width 17.2H, Platelet Count 173, Mean Platelet Volume 7.5, Neutrophils (%) (Auto) , Lymphocytes (%) (Auto) , Monocytes (%) (Auto) , Eosinophils (%) (Auto) , Basophils (%) (Auto) , Differential Total Cells Counted 100, Neutrophils % (Manual) 80H, Lymphocytes % (Manual) 16L, Monocytes % (Manual) 4, Eosinophils % (Manual) 0, Basophils % (Manual) 0, Band Neutrophils 0, Platelet Estimate Adequate, Platelet Morphology Normal, Hypochromasia 1+, Anisocytosis 1+, Sodium Level 141, Potassium Level 4.2, Chloride Level 105, Carbon Dioxide Level 34H, Anion Gap 2L, Blood Urea Nitrogen 18, Creatinine 0.5L, Estimat Glomerular Filtration Rate > 60, Glucose Level 138H, Calcium Level 7.7L, Phosphorus Level 3.6, Magnesium Level 2.1, Total Bilirubin 0.6, Aspartate Amino Transf (AST/SGOT) 59H, Alanine Aminotransferase (ALT/SGPT) 271H, Alkaline Phosphatase 323H, Troponin I 0.026, C-Reactive Protein, Quantitative 2.1H, Pro-B-Type Natriuretic Peptide 297H, Total Protein 4.3L, Albumin 1.5L, Globulin 2.8, Albumin/Globulin Ratio 0.5L, Random Amikacin Level [Pending] Height (Feet): 5 Height (Inches): 10.00 Weight (Pounds): 240 General Appearance: no apparent distress EENT: normal ENT inspection Neck: supple Cardiovascular: normal rate Respiratory/Chest: decreased breath sounds Abdomen: normal bowel sounds, non tender, soft Extremities: non-tender Assessment/Plan Status: not improved, unchanged Assessment/Plan: hep c + but neg RNA intubated OGTF reglan 10 mg repeat labs fu LFTS will fu Da Quintero MD Apr 12, 2020 09:24
--- NOTE | 2020-04-12 09:30 | NUR ---
NURSE NOTES: Dr Cooper on the unit, making rounds. Updated him on pt's current condition. No new orders given at this time.
[2020-04-12] MEDS: fentaNYL 2500mcg/NS 250ml 250 ML IV SCH ×2 (09:40→18:00)
[2020-04-12 10:13] LABS: APPEARANCE,URINE SLIGHTLY CLOUDY; BILIRUBIN, URINE NEGATIVE (NEGATIVE); GLUCOSE, URINE (UA) NEGATIVE (NEGATIVE); KETONES,URINE 1+ (NEGATIVE); LEUKOCYTE ESTERASE ,URINE 1+ (NEGATIVE); NITRITE,URINE NEGATIVE (NEGATIVE); PH,URINE 5 (4.5-8.0); PROTEIN,URINE 2+ (NEGATIVE); UROBILINOGEN,URINE 1 MG/DL (0.0-1.0)
--- NOTE | 2020-04-12 10:14 | NUR ---
NURSE NOTES: Dr Mata making his rounds. Updated him on pt's current condition. FiO2 95%; O2sat 92%. CXRAY will be done.
--- NOTE | 2020-04-12 10:16 | Pulmonology Progress Note ---
Subjective ROS Limited/Unobtainable: No Interval Events: Intubated 03/28/20 Constitutional: Reports: fever, other - fio2-100 % HEENT: Repors: no symptoms Respiratory: Reports: dry cough, shortness of breath Cardiovascular: Reports: no symptoms Gastrointestinal/Abdominal: Denies: nausea, vomiting, diarrhea Psychiatric: Reports: other - NA Skin: Denies: rash Musculoskeletal: Denies: pain Allergies: Coded Allergies: No Known Allergies (Unverified , 02/05/20) Objective Last 24 Hour Vital Signs Date Time Temp Pulse Resp B/P (MAP) Pulse Ox O2 Delivery O2 Flow Rate FiO2 04/12/20 10:00 18 116/58 Mechanical Ventilator 95 04/12/20 10:00 18 Mechanical Ventilator 95 04/12/20 10:00 64 18 116/58 (77) 91 04/12/20 09:40 18 114/57 Mechanical Ventilator 100 04/12/20 09:00 18 Mechanical Ventilator 100 04/12/20 09:00 65 18 107/54 (71) 93 04/12/20 08:30 63 18 120/59 (79) 95 04/12/20 08:01 20 Mechanical Ventilator 100 04/12/20 08:00 100 04/12/20 08:00 20 Mechanical Ventilator 100 04/12/20 08:00 Mechanical Ventilator 04/12/20 08:00 97.9 62 18 117/58 (77) 94 04/12/20 08:00 65 04/12/20 07:30 59 18 141/73 (95) 97 04/12/20 07:00 18 141/73 Mechanical Ventilator 100 04/12/20 07:00 18 Mechanical Ventilator 100 04/12/20 07:00 99 12 138/77 (97) 97 04/12/20 06:00 69 18 141/78 (99) 99 04/12/20 06:00 18 141/73 Mechanical Ventilator 100 04/12/20 06:00 18 Mechanical Ventilator 100 04/12/20 05:00 18 141/78 Mechanical Ventilator 100 04/12/20 05:00 18 100 04/12/20 05:00 66 19 122/67 (85) 94 04/12/20 04:00 60 04/12/20 04:00 Mechanical Ventilator 04/12/20 04:00 98.4 56 18 100/53 (69) 98 04/12/20 04:00 20 102/60 Mechanical Ventilator 100 04/12/20 04:00 18 107/64 Mechanical Ventilator 100 04/12/20 04:00 18 100 04/12/20 04:00 85 04/12/20 03:10 55 18 100 04/12/20 03:00 57 18 98/53 (68) 97 04/12/20 03:00 20 100/50 Mechanical Ventilator 100 04/12/20 03:00 18 Mechanical Ventilator 100 04/12/20 02:00 60 18 97/52 (67) 97 04/12/20 02:00 20 100/60 Mechanical Ventilator 100 04/12/20 01:00 64 18 120/63 (82) 98 04/12/20 01:00 20 100/50 Mechanical Ventilator 100 04/12/20 00:24 22 96/40 Mechanical Ventilator 100 04/12/20 00:24 18 Mechanical Ventilator 100 04/12/20 00:00 Mechanical Ventilator 04/12/20 00:00 85 04/12/20 00:00 18 97/50 Mechanical Ventilator 100 04/12/20 00:00 99.0 63 18 115/61 (79) 98 04/12/20 00:00 60 04/11/20 23:10 60 18 100 04/11/20 23:00 61 18 94/50 (65) 98 04/11/20 22:45 18 128/80 Mechanical Ventilator 100 04/11/20 22:00 18 100/50 Mechanical Ventilator 100 04/11/20 22:00 Mechanical Ventilator 04/11/20 22:00 64 18 95/48 (64) 97 04/11/20 21:00 60 18 99/52 (68) 97 04/11/20 21:00 20 100/50 Mechanical Ventilator 100 04/11/20 21:00 18 Mechanical Ventilator 100 04/11/20 20:00 Mechanical Ventilator 04/11/20 20:00 20 100/50 Mechanical Ventilator 100 04/11/20 20:00 18 Mechanical Ventilator 100 04/11/20 20:00 63 04/11/20 20:00 98.9 61 18 101/53 (69) 96 04/11/20 20:00 85 04/11/20 19:20 63 18 100 04/11/20 19:00 63 18 108/60 (76) 96 04/11/20 19:00 18 Mechanical Ventilator 100 04/11/20 19:00 18 108/60 Mechanical Ventilator 100 04/11/20 18:36 18 105/54 100 04/11/20 18:00 18 Mechanical Ventilator 100 04/11/20 18:00 65 18 101/53 (69) 94 04/11/20 17:05 64 18 108/67 (81) 95 04/11/20 17:00 18 Mechanical Ventilator 100 04/11/20 17:00 18 109/57 Mechanical Ventilator 85 04/11/20 16:30 18 Mechanical Ventilator 85 04/11/20 16:13 98.9 69 18 89 04/11/20 16:09 Mechanical Ventilator 04/11/20 16:00 85 04/11/20 16:00 68 18 101/47 (65) 89 04/11/20 16:00 18 101/47 Mechanical Ventilator 85 04/11/20 16:00 69 04/11/20 15:00 18 105/58 Mechanical Ventilator 85 04/11/20 15:00 67 18 105/58 (74) 93 04/11/20 15:00 65 18 100 04/11/20 14:00 18 89/51 Mechanical Ventilator 85 04/11/20 14:00 63 18 89/51 (64) 93 04/11/20 13:00 18 90/52 Mechanical Ventilator 85 04/11/20 13:00 66 18 90/52 (65) 93 04/11/20 12:00 85 04/11/20 12:00 Mechanical Ventilator 04/11/20 12:00 98.9 68 18 96/55 (69) 93 04/11/20 12:00 79 04/11/20 12:00 18 Mechanical Ventilator 85 04/11/20 12:00 18 96/55 Mechanical Ventilator 85 04/11/20 11:58 74 04/11/20 11:40 75 18 90 04/11/20 11:00 18 Mechanical Ventilator 85 04/11/20 11:00 18 124/67 Mechanical Ventilator 85 04/11/20 11:00 79 18 124/67 (86) 94 Intake and Output 04/11/20 04/12/20 19:00 07:00 Intake Total 2174 ml 2215.416 ml Output Total 1005 ml 675 ml Balance 1169 ml 1540.416 ml Free Water 400 ml 150 ml IV Total 1124 ml 1465.416 ml Tube Feeding 550 ml 600 ml Other 100 ml Output Urine Total 980 ml 675 ml Stool Total 25 ml # Voids 155 # Bowel Movements 10 General Appearance: WD/WN, no acute distress HEENT: normocephalic, atraumatic Respiratory: chest wall non-tender Cardiovascular: normal rate, regular rhythm Abdomen: normal bowel sounds, soft, non tender, other - obese Laboratory Tests 04/12/20 05:47: White Blood Count 4.6L, Red Blood Count 3.12L, Hemoglobin 9.0L, Hematocrit 28.1L , Mean Corpuscular Volume 90, Mean Corpuscular Hemoglobin 28.7, Mean Corpuscular Hemoglobin Concent 31.9L, Red Cell Distribution Width 17.2H, Platelet Count 173, Mean Platelet Volume 7.5, Neutrophils (%) (Auto) , Lymphocytes (%) (Auto) , Monocytes (%) (Auto) , Eosinophils (%) (Auto) , Basophils (%) (Auto) , Differential Total Cells Counted 100, Neutrophils % (Manual) 80H, Lymphocytes % (Manual) 16L, Monocytes % (Manual) 4, Eosinophils % (Manual) 0, Basophils % (Manual) 0, Band Neutrophils 0, Platelet Estimate Adequate, Platelet Morphology Normal, Hypochromasia 1+, Anisocytosis 1+, Sodium Level 141, Potassium Level 4.2, Chloride Level 105, Carbon Dioxide Level 34H, Anion Gap 2L, Blood Urea Nitrogen 18, Creatinine 0.5L, Estimat Glomerular Filtration Rate > 60, Glucose Level 138H, Calcium Level 7.7L, Phosphorus Level 3.6, Magnesium Level 2.1, Total Bilirubin 0.6, Aspartate Amino Transf (AST/SGOT) 59H, Alanine Aminotransferase (ALT/SGPT) 271H, Alkaline Phosphatase 323H, Troponin I 0.026, C-Reactive Protein, Quantitative 2.1H, Pro-B-Type Natriuretic Peptide 297H, Total Protein 4.3L, Albumin 1.5L, Globulin 2.8, Albumin/Globulin Ratio 0.5L, Random Amikacin Level [Pending] 04/12/20 08:40: Urine Color [Pending], Urine Appearance [Pending], Urine pH [Pending], Urine Specific Joiner [Pending], Urine Protein [Pending], Urine Glucose (UA) [Pending], Urine Ketones [Pending], Urine Blood [Pending], Urine Nitrite [Pending], Urine Bilirubin [Pending], Urine Urobilinogen [Pending], Urine Leukocyte Esterase [Pending] Current Medications Medications (Trade) Dose Ordered Sig/Dennis Route PRN Reason Start Time Stop Time Status Last Admin Dose Admin Amikacin Protocol (Amikacin pharmacy to dose) 1 ea DAILY PRN MISC Per rx protocol 04/11/20 17:30 05/11/20 17:29 Amikacin Sulfate 1250 mg/Sodium Chloride 115 ml @ 115 mls/hr Q24H IV 04/11/20 20:00 04/18/20 19:59 04/11/20 21:00 Bisacodyl (Dulcolax) 10 mg Q12H PRN RECTAL Constipation 03/18/20 16:45 06/16/20 16:44 Chlorhexidine Gluconate (Marlen-Hex 2%) 1 applic DAILY@2000 TOPIC 03/30/20 20:00 06/28/20 19:59 04/11/20 21:00 Dextrose (Dextrose 50%) 25 ml Q30M PRN IV Hypoglycemia 03/29/20 20:45 06/27/20 20:44 Dextrose (Dextrose 50%) 50 ml Q30M PRN IV Hypoglycemia 03/29/20 20:45 06/27/20 20:44 Enoxaparin Sodium (Lovenox) 80 mg EVERY 12 HOURS SUBQ 04/06/20 21:00 07/05/20 20:59 04/12/20 08:02 Fentanyl Citrate 250 ml @ 1 mls/hr Q24H IV 04/11/20 22:45 04/13/20 22:44 04/12/20 09:40 Hydralazine HCl (Apresoline) 10 mg Q4H PRN IV For High Blood Pressure 03/30/20 12:15 06/28/20 12:14 04/03/20 21:00 Insulin Aspart (NovoLOG) Q6HR SUBQ 03/30/20 00:00 06/28/20 00:00 04/12/20 05:28 Labetalol HCl (Normodyne) 10 mg Q4H PRN IV sbp greater tahtn 160 03/28/20 17:30 04/27/20 17:29 Methylprednisolone Sodium Succinate (Solu-MEDROL) 40 mg EVERY 8 HOURS IVP 03/22/20 14:00 06/20/20 13:59 04/12/20 05:28 Metoclopramide HCl (Reglan) 10 mg Q6H IVP 03/30/20 15:00 04/29/20 14:59 04/12/20 08:31 Micafungin Sodium 100 mg/Sodium Chloride 100 ml @ 100 mls/hr Q24H IVPB 04/09/20 15:00 04/22/20 23:59 04/11/20 14:43 Midazolam HCl 100 mg/Sodium Chloride 200 ml @ 24 mls/hr Q24H PRN IV To Patient Comfort 04/11/20 16:30 04/13/20 16:29 04/12/20 08:01 Pantoprazole (Protonix) 40 mg EVERY 12 HOURS IVP 04/01/20 21:00 05/01/20 20:59 04/12/20 08:02 Piperacillin Sod/ Tazobactam Sod 3.375 gm/Dextrose 100 ml @ 25 mls/hr EVERY 8 HOURS IVPB 04/11/20 22:00 04/16/20 21:59 04/12/20 05:28 Sodium Chloride 1,000 ml @ 30 mls/hr Q24H IV 04/07/20 21:00 05/07/20 20:59 04/12/20 10:00 Trimethoprim/ Sulfamethoxazole (Bactrim-DS) 1 tab Q24H ORAL 03/29/20 17:00 05/10/20 16:59 04/11/20 16:38 Vancomycin HCl (Vanco pharmacy to dose) 1 ea DAILY PRN MISC Per rx protocol 04/11/20 17:30 05/11/20 17:29 Vancomycin HCl 1 gm/Dextrose 275 ml @ 183.708 mls/hr Q8H IVPB 04/11/20 18:30 04/16/20 18:29 04/12/20 02:53 Vitamin D (Vitamin D) 10,000 unit DAILY GT 04/07/20 09:00 04/14/20 08:59 04/12/20 08:31 Assessment/Plan Assessment/Plan Assessment/Plan 1.COVID-19 pneumonia. - Completed specific therapies - On solumedrol 2. DVT ppx - on lovenox 3. Hypertension - no longer on meds - Not requiring pressors 4. Leukocytosis; - ID following - On abx - Budding yeast on blood CS 5. Elevated LFT - positive Hep C; treated in the past with IF 6. Respiratory failure -Intubated 03/28/20 -Family aware - Prognosis grave - Vt 750; rate 18 -On Fentanyl 7. Discussed with cardiology -No evidence for cardiac dysfunction or PE -tachycardic; will increase sedation 8. AMS -back on sedation - has apparent left arm paresis - Will consider CT brain when more stable S/p new PICC line On abx Slowly improving oxygenation Noted left upper extremity swelling. Has DVT; on full dose Lovenox Continue sedation, DC propofol given high triglycerides. Continue fentanyl and Versed. Oxygenation better today FiO2 65 ->100 ->85 ->95% PEEP 5 Will check CXR May need to John Can MD Apr 12, 2020 10:16
--- NOTE | 2020-04-12 10:19 | Nephrology Progress Note ---
Assessment/Plan Problem List: (1) Dehydration (2) Electrolyte imbalance (3) COVID-19 virus infection (4) Pneumonia (5) DMII (diabetes mellitus, type 2) (6) Protein malnutrition Assessment Azotemia, hypernatremia Hypoalbuminemia Staff Otilia bacteremia COVID-19 isolation, pneumonia, bilateral infiltrate Hypertension Diabetes mellitus History of smoking Plan April 12: On higher FiO2. Will resume Lasix daily. Continue to monitor e lectrolytes and renal parameters. Per consultants. April 11: FiO2 went up to 85%. Renal parameters and electrolytes reasonably well-maintained. Will monitor serum potassium. Will give IV Lasix. April 10: Status quo. Labs reviewed. Remains intubated on ventilator with FiO2 of 65%. Remains full code. Stable from renal standpoint to view. Repeat vitamin D level on April 08 pending April 09: Status quo. Labs reviewed. Stable from renal standpoint of view. Continue per consultants. April 08: Discussed with RN. Labs reviewed. Clinically improving. Requires lower PEEP. Continue per pulmonary. Continue to monitor renal parameters. April 07: Remains full code and on ventilator. Labs reviewed. Renal parameters and electrolytes stable. Continue per consultants. Blood pressure marginally improved. April 06: Full code. On ventilator. Blood pressure 80-90 systolic. IV Lasix discontinued. Free water through tube feeding ordered. Continue to monitor electrolytes and serum sodium. Down on fentanyl as possible. Discussed with RN Kevin. Clonidine patch discontinued. April 05: Status quo. Remains full code. Remains intubated. Labs reviewed. Renal parameters stable. Serum sodium 150 unchanged. Continue per consultants. April 04: Remains intubated and on ventilator. Remains full code. Labs reviewed. Serum sodium 150 unchanged. Renal parameters stable. Continue per ID and pulmonary. April 03: Intubated. On ventilator. Full code. Labs reviewed. Serum sodium 150 unchanged. Continue to monitor renal parameters. Continue per pulmonary and ID. April 02: Full code. On ventilator. Discussed with RN. Serum sodium slightly higher. Will cut down on IV Lasix. Continue per consultants. Continue to monitor renal parameters and electrolytes. April 01: Full code. Remains on ventilator. Labs reviewed. Stable from renal standpoint of view. Continue per consultants. March 31: Full code . Remains intubated on ventilator. Labs reviewed. Patient appears toxic. Discussed with RN. Maintenance IV discontinued. Medication list reviewed. Blood pressure medication stopped due to low blood pressure. Levemir insulin stopped. Continue monitor blood sugar and sliding scale insulin. March 30: Full code. On ventilator. Labs reviewed. Clonidine patch dose increased. Lasix increased. 3% saline 1 time ordered. Continue to monitor electrolytes and renal parameters. March 29: Remains full code. On mechanical ventilation. On tube feeding. Will DC TPN. Will start on maintenance IV fluid. Continue to monitor renal parameters. March 28: On BiPAP. Full code. On TPN. Labs reviewed. Discussed with pharmacy. Continue as is. Watch serum potassium. March 27: Remains on BiPAP. No chemistry panel done today. Full code. On TPN. Will check lab tomorrow. March 26: Remains on BiPAP. Remains on TPN. Labs reviewed. Electrolytes and chemistries within normal limits. Continue as is. March 25: Remains on TPN. Labs reviewed. Discussed with pharmacy. Change IV Protonix to p.o. Continue 3% saline infusion with Lasix. Patient full code. March 24: Continue to be on TPN. Labs are reviewed. Aim to collect electrolytes. Discussed with pharmacy. Continue current consultants. March 23: Continues to be on TPN. Labs reviewed. Electrolytes and chemistries all acceptable. Discussed with pharmacy. Continue current management. March 22: On TPN. Labs reviewed. Low sodium noted. 3% saline to be continued. Continue to monitor electrolytes. Discussed with pharmacy. March 21: On TPN. Labs reviewed. Continue 3% saline and Lasix for mild hyponatremia. Continue TPN as these. Discussed with pharmacy. March 20: Remains on TPN. Labs reviewed. Serum sodium higher on IV Lasix and 3% saline infusion. Continue TPN as is. Continue to monitor renal parameters and electrolytes. Discussed with Dr. Mata March 19: Remains on TPN. Labs reviewed. Serum sodium 128. Will give 3% saline with IV Lasix. Continue to monitor electrolytes. No change in TPN composition. Discussed with pharmacy. March 18: Remains on TPN. Labs reviewed. Discussed with pharmacist. Will give 3 doses of IV Lasix 20 mg every 8 hours. Continue to monitor serum sodium electrolytes uric acid. White blood cells down. Continue per consultants. March 17: On TPN. Labs reviewed. Discussed with pharmacist. Sodium content increase. Continue to monitor CMP. Patient continues to have leukocytosis. March 16: On TPN. Labs reviewed. Discussed with pharmacist. Appropriate changes made. Continue to monitor electrolytes. March 15: Remains on TPN. Labs reviewed. Discussed with pharmacist. Continue per current management. March 14: Remains on TPN. Labs reviewed, stable. Vitamin D level low, replacement ordered. Continue to monitor electrolytes and renal parameters. March 13: Patient remains on TPN. Discussed with pharmacist. TPN's sodium content adjusted. Labs reviewed. Continue to monitor electrolytes. Blood pressure remains stable. Continue per consultants. March 12: Patient on TPN. Labs reviewed. CPK remains elevated. Abnormal electrolytes and high blood sugar discussed with pharmacist and TPN adjusted. Continue to monitor labs. Oral Protonix added. Ibuprofen discontinued. Can continue to monitor electrolytes and chemistries. Levemir for high blood sugar added. March 11: Patient on TPN. Labs as of 11:15 AM is still pending. Continue per current treatment plan. Will check labs and adjust TPN as needed. Continue per consultants. March 10: Patient on TPN. Labs reviewed. Electrolytes overall stable. CPK is elevated. Will monitor electrolyte, CPK level, lipid panel. Continue per consultants. Discussed with pharmacist. Discussed with RN. Nutritional evaluation noted. Previously: D5W 100 cc an hour Monitor electrolytes renal parameters TPN and Intralipid ordered Will follow Continue per consultants Dietary consult requested Subjective ROS Limited/Unobtainable: Yes Objective Objective Last 24 Hour Vital Signs Date Time Temp Pulse Resp B/P (MAP) Pulse Ox O2 Delivery O2 Flow Rate FiO2 04/12/20 10:00 18 116/58 Mechanical Ventilator 95 04/12/20 10:00 18 Mechanical Ventilator 95 04/12/20 10:00 64 18 116/58 (77) 91 04/12/20 09:40 18 114/57 Mechanical Ventilator 100 04/12/20 09:00 18 Mechanical Ventilator 100 04/12/20 09:00 65 18 107/54 (71) 93 04/12/20 08:30 63 18 120/59 (79) 95 04/12/20 08:01 20 Mechanical Ventilator 100 04/12/20 08:00 100 04/12/20 08:00 20 Mechanical Ventilator 100 04/12/20 08:00 Mechanical Ventilator 04/12/20 08:00 97.9 62 18 117/58 (77) 94 04/12/20 08:00 65 04/12/20 07:30 59 18 141/73 (95) 97 04/12/20 07:00 18 141/73 Mechanical Ventilator 100 04/12/20 07:00 18 Mechanical Ventilator 100 04/12/20 07:00 99 12 138/77 (97) 97 04/12/20 06:00 69 18 141/78 (99) 99 04/12/20 06:00 18 141/73 Mechanical Ventilator 100 04/12/20 06:00 18 Mechanical Ventilator 100 04/12/20 05:00 18 141/78 Mechanical Ventilator 100 04/12/20 05:00 18 100 04/12/20 05:00 66 19 122/67 (85) 94 04/12/20 04:00 60 04/12/20 04:00 Mechanical Ventilator 04/12/20 04:00 98.4 56 18 100/53 (69) 98 04/12/20 04:00 20 102/60 Mechanical Ventilator 100 04/12/20 04:00 18 107/64 Mechanical Ventilator 100 04/12/20 04:00 18 100 04/12/20 04:00 85 04/12/20 03:10 55 18 100 04/12/20 03:00 57 18 98/53 (68) 97 04/12/20 03:00 20 100/50 Mechanical Ventilator 100 04/12/20 03:00 18 Mechanical Ventilator 100 04/12/20 02:00 60 18 97/52 (67) 97 04/12/20 02:00 20 100/60 Mechanical Ventilator 100 04/12/20 01:00 64 18 120/63 (82) 98 04/12/20 01:00 20 100/50 Mechanical Ventilator 100 04/12/20 00:24 22 96/40 Mechanical Ventilator 100 04/12/20 00:24 18 Mechanical Ventilator 100 04/12/20 00:00 Mechanical Ventilator 04/12/20 00:00 85 04/12/20 00:00 18 97/50 Mechanical Ventilator 100 04/12/20 00:00 99.0 63 18 115/61 (79) 98 04/12/20 00:00 60 04/11/20 23:10 60 18 100 04/11/20 23:00 61 18 94/50 (65) 98 04/11/20 22:45 18 128/80 Mechanical Ventilator 100 04/11/20 22:00 18 100/50 Mechanical Ventilator 100 04/11/20 22:00 Mechanical Ventilator 04/11/20 22:00 64 18 95/48 (64) 97 04/11/20 21:00 60 18 99/52 (68) 97 04/11/20 21:00 20 100/50 Mechanical Ventilator 100 04/11/20 21:00 18 Mechanical Ventilator 100 04/11/20 20:00 Mechanical Ventilator 04/11/20 20:00 20 100/50 Mechanical Ventilator 100 04/11/20 20:00 18 Mechanical Ventilator 100 04/11/20 20:00 63 04/11/20 20:00 98.9 61 18 101/53 (69) 96 04/11/20 20:00 85 04/11/20 19:20 63 18 100 04/11/20 19:00 63 18 108/60 (76) 96 04/11/20 19:00 18 Mechanical Ventilator 100 04/11/20 19:00 18 108/60 Mechanical Ventilator 100 04/11/20 18:36 18 105/54 100 04/11/20 18:00 18 Mechanical Ventilator 100 04/11/20 18:00 65 18 101/53 (69) 94 04/11/20 17:05 64 18 108/67 (81) 95 04/11/20 17:00 18 Mechanical Ventilator 100 04/11/20 17:00 18 109/57 Mechanical Ventilator 85 04/11/20 16:30 18 Mechanical Ventilator 85 04/11/20 16:13 98.9 69 18 89 04/11/20 16:09 Mechanical Ventilator 04/11/20 16:00 85 04/11/20 16:00 68 18 101/47 (65) 89 04/11/20 16:00 18 101/47 Mechanical Ventilator 85 04/11/20 16:00 69 04/11/20 15:00 18 105/58 Mechanical Ventilator 85 04/11/20 15:00 67 18 105/58 (74) 93 04/11/20 15:00 65 18 100 04/11/20 14:00 18 89/51 Mechanical Ventilator 85 04/11/20 14:00 63 18 89/51 (64) 93 04/11/20 13:00 18 90/52 Mechanical Ventilator 85 04/11/20 13:00 66 18 90/52 (65) 93 04/11/20 12:00 85 04/11/20 12:00 Mechanical Ventilator 04/11/20 12:00 98.9 68 18 96/55 (69) 93 04/11/20 12:00 79 04/11/20 12:00 18 Mechanical Ventilator 85 04/11/20 12:00 18 96/55 Mechanical Ventilator 85 04/11/20 11:58 74 04/11/20 11:40 75 18 90 04/11/20 11:00 18 Mechanical Ventilator 85 04/11/20 11:00 18 124/67 Mechanical Ventilator 85 04/11/20 11:00 79 18 124/67 (86) 94 Intake and Output 04/11/20 04/12/20 19:00 07:00 Intake Total 2174 ml 2215.416 ml Output Total 1005 ml 675 ml Balance 1169 ml 1540.416 ml Free Water 400 ml 150 ml IV Total 1124 ml 1465.416 ml Tube Feeding 550 ml 600 ml Other 100 ml Output Urine Total 980 ml 675 ml Stool Total 25 ml # Voids 155 # Bowel Movements 10 Current Medications Medications (Trade) Dose Ordered Sig/Dennis Route PRN Reason Start Time Stop Time Status Last Admin Dose Admin Amikacin Protocol (Amikacin pharmacy to dose) 1 ea DAILY PRN MISC Per rx protocol 04/11/20 17:30 05/11/20 17:29 Amikacin Sulfate 1250 mg/Sodium Chloride 115 ml @ 115 mls/hr Q24H IV 04/11/20 20:00 04/18/20 19:59 04/11/20 21:00 Bisacodyl (Dulcolax) 10 mg Q12H PRN RECTAL Constipation 03/18/20 16:45 06/16/20 16:44 Chlorhexidine Gluconate (Marlen-Hex 2%) 1 applic DAILY@2000 TOPIC 03/30/20 20:00 06/28/20 19:59 04/11/20 21:00 Dextrose (Dextrose 50%) 25 ml Q30M PRN IV Hypoglycemia 03/29/20 20:45 06/27/20 20:44 Dextrose (Dextrose 50%) 50 ml Q30M PRN IV Hypoglycemia 03/29/20 20:45 06/27/20 20:44 Enoxaparin Sodium (Lovenox) 80 mg EVERY 12 HOURS SUBQ 04/06/20 21:00 07/05/20 20:59 04/12/20 08:02 Fentanyl Citrate 250 ml @ 1 mls/hr Q24H IV 04/11/20 22:45 04/13/20 22:44 04/12/20 09:40 Hydralazine HCl (Apresoline) 10 mg Q4H PRN IV For High Blood Pressure 03/30/20 12:15 06/28/20 12:14 04/03/20 21:00 Insulin Aspart (NovoLOG) Q6HR SUBQ 03/30/20 00:00 06/28/20 00:00 04/12/20 05:28 Labetalol HCl (Normodyne) 10 mg Q4H PRN IV sbp greater tahtn 160 03/28/20 17:30 04/27/20 17:29 Methylprednisolone Sodium Succinate (Solu-MEDROL) 40 mg EVERY 8 HOURS IVP 03/22/20 14:00 06/20/20 13:59 04/12/20 05:28 Metoclopramide HCl (Reglan) 10 mg Q6H IVP 03/30/20 15:00 04/29/20 14:59 04/12/20 08:31 Micafungin Sodium 100 mg/Sodium Chloride 100 ml @ 100 mls/hr Q24H IVPB 04/09/20 15:00 04/22/20 23:59 04/11/20 14:43 Midazolam HCl 100 mg/Sodium Chloride 200 ml @ 24 mls/hr Q24H PRN IV To Patient Comfort 04/11/20 16:30 04/13/20 16:29 04/12/20 08:01 Pantoprazole (Protonix) 40 mg EVERY 12 HOURS IVP 04/01/20 21:00 05/01/20 20:59 04/12/20 08:02 Piperacillin Sod/ Tazobactam Sod 3.375 gm/Dextrose 100 ml @ 25 mls/hr EVERY 8 HOURS IVPB 04/11/20 22:00 04/16/20 21:59 04/12/20 05:28 Sodium Chloride 1,000 ml @ 30 mls/hr Q24H IV 04/07/20 21:00 05/07/20 20:59 04/12/20 10:00 Trimethoprim/ Sulfamethoxazole (Bactrim-DS) 1 tab Q24H ORAL 03/29/20 17:00 05/10/20 16:59 2/9/21 16:38 Vancomycin HCl (Vanco pharmacy to dose) 1 ea DAILY PRN MISC Per rx protocol 04/11/20 17:30 05/11/20 17:29 Vancomycin HCl 1 gm/Dextrose 275 ml @ 183.708 mls/hr Q8H IVPB 04/11/20 18:30 04/16/20 18:29 04/12/20 02:53 Vitamin D (Vitamin D) 10,000 unit DAILY GT 04/07/20 09:00 04/14/20 08:59 04/12/20 08:31 Laboratory Tests 04/12/20 05:47: White Blood Count 4.6L, Red Blood Count 3.12L, Hemoglobin 9.0L, Hematocrit 28.1L , Mean Corpuscular Volume 90, Mean Corpuscular Hemoglobin 28.7, Mean Corpuscular Hemoglobin Concent 31.9L, Red Cell Distribution Width 17.2H, Platelet Count 173, Mean Platelet Volume 7.5, Neutrophils (%) (Auto) , Lymphocytes (%) (Auto) , Monocytes (%) (Auto) , Eosinophils (%) (Auto) , Basophils (%) (Auto) , Differ ential Total Cells Counted 100, Neutrophils % (Manual) 80H, Lymphocytes % (Manual) 16L, Monocytes % (Manual) 4, Eosinophils % (Manual) 0, Basophils % (Manual) 0, Band Neutrophils 0, Platelet Estimate Adequate, Platelet Morphology Normal, Hypochromasia 1+, Anisocytosis 1+, Sodium Level 141, Potassium Level 4.2, Chloride Level 105, Carbon Dioxide Level 34H, Anion Gap 2L, Blood Urea Nitrogen 18, Creatinine 0.5L, Estimat Glomerular Filtration Rate > 60, Glucose Level 138H, Calcium Level 7.7L, Phosphorus Level 3.6, Magnesium Level 2.1, Total Bilirubin 0.6, Aspartate Amino Transf (AST/SGOT) 59H, Alanine Aminotransferase (ALT/SGPT) 271H, Alkaline Phosphatase 323H, Troponin I 0.026, C-Reactive Protein, Quantitative 2.1H, Pro-B-Type Natriuretic Peptide 297H, Total Protein 4.3L, Albumin 1.5L, Globulin 2.8, Albumin/Globulin Ratio 0.5L, Random Amikacin Level [Pending] 04/12/20 08:40: Urine Color [Pending], Urine Appearance [Pending], Urine pH [Pending], Urine Specific [place] [Pending], Urine Protein [Pending], Urine Glucose (UA) [Pending], Urine Ketones [Pending], Urine Blood [Pending], Urine Nitrite [Pending], Urine Bilirubin [Pending], Urine Urobilinogen [Pending], Urine Leukocyte Esterase [Pending] Height (Feet): 5 Height (Inches): 10.00 Weight (Pounds): 240 General Appearance: no apparent distress EENT: other - Intubated on ventilator Cardiovascular: normal rate Respiratory/Chest: decreased breath sounds Abdomen: distended Rubin Cooper MD Apr 12, 2020 10:19
[2020-04-12 10:26] LABS: COLOR,URINE YELLOW
--- NOTE | 2020-04-12 10:46 | Cardiology Report ---
APPROVED REPORT EXAM: Two-dimensional and M-mode echocardiogram with Doppler and color Doppler. INDICATION Tachycardia M-Mode DIMENSIONS IVSd0.8 (0.7-1.1cm)Left Atrium (MM)3.0 (1.6-4.0cm) LVDd5.6 (3.5-5.6cm)Aortic Root3.3 (2.0-3.7cm) PWd1.1 (0.7-1.1cm)Aortic Cusp Exc.1.5 (1.5-2.0cm) IVSs1.5 cmEPSS0.6 (>1.0cm) LVDs2.6 (2.5-4.0cm) PWs2.2 cm <Conclusion> Technically difficult and limited study due to poor acoustic windows. Study quality precludes accurate assessment of regional wall motion. Normal left ventricular chamber size, systolic function and wall motion to extent visualized. Left ventricular ejection fraction estimated to be 65 %. No evidence of left ventricular hypertrophy. Anterior Echo-free space, may be due to pericardial fat or effusion. All other cardiac chamber sizes are within normal limits. Focal aortic valve sclerosis with adequate cusp excursion. Thickened mitral valve leaflets with normal excursion. Mitral annulus and aortic root calcification. Pulmonic valve not visualized. Normal tricuspid valve structure. IVC is normal in size with physiological collapse. A color flow and spectral Doppler study was performed and revealed: No aortic regurgitation. Trace mitral regurgitation. Mitral diastolic velocities suggest mild left ventricular diastolic dysfunction (Grade I). Trace tricuspid regurgitation. Tricuspid systolic velocities suggests peak right ventricular systolic pressure of 18 mmHg.
--- NOTE | 2020-04-12 11:00 | NUR ---
NURSE NOTES: patient temp 100.0 cooling measures applied.
--- NOTE | 2020-04-12 11:22 | NUR ---
RESPIRATORY NOTE: FiO2 increased to 100% due to desaturation. PRIYANKA Lees is aware. Current saturation is 88%. Will continue to monitor.
--- NOTE | 2020-04-12 11:59 | NUR ---
RADIOLOGY DEPT., CHEST X-RAY DONE.-P.DYE
--- NOTE | 2020-04-12 12:00 | NUR ---
NURSE NOTES: Pt observed to be in respiratory distress with O2sat in the 60's. FiO2 increased to 100% from 95%. Pt maxed on Fentanyl but Versed was increased; currently 26mg/hr. Pt observed grimacing and moving arms, fighting the vent. Will continue to monitor. Addendum: 04/12/20 at 1234 by Yoana Hughes RN Versed 26mL/hr
--- NOTE | 2020-04-12 12:30 | NUR ---
CASE MANAGEMENT:REVIEW 04/12/20 SI: COVID PNEUMONIA~INTUBATED 97.4 96 27 183/77 65%% ON VENT SUPPORT W/100% FIO2 H/H-9.0/28.1 CO2+34 AST/ALT+59/271 IS: IV LASIX QD FENTANYL GTT VERSED GTT IV ZOSYN Q8HR IV AMIKACIN Q24 IV MICAFUNGIN Q24 IV VANCOMYCIN Q8HRS NORVASC NG Q12 IVF@30/HR LOVENOX SQ Q12 IV PROTONIX Q12 IV SOLUMEDROL 20MG Q12HRS BACTRIM NG Q24 IV REGLAN Q6HRS : ICU STATUS PLAN: NON VIOLENT RESTRAINTS
--- NOTE | 2020-04-12 12:45 | NUR ---
INSURANCE CLINCALS/REVIEW FAXED TO [employer] T: [phone] #1 F: [phone] AND [facility] [employer]ICE [employer]PENSING:JACQUELINE JAMES T: [phone] F: [phone] [facility] #[phone]
--- NOTE | 2020-04-12 13:45 | NUR ---
RESPIRATORY NOTE: ABG drawn at this time. Results reported to PRIYANKA Lees.
--- NOTE | 2020-04-12 14:00 | NUR ---
NURSE NOTES: Pt maxed on sedation Versed 20mg/hr and Fentanyl 300mcg/hr. Pt O2sat 70-80's. FiO2 100%. Left message for Dr Mata regarding ABG
--- NOTE | 2020-04-12 14:24 | Diagnostic Imaging Report ---
Indication: Shortness of breath Technique: One view of the chest Comparison: 04/09/2020 Findings: Stable satisfactory tube and line positions. Bilateral infiltrates have worsened slightly since prior study. The heart size is normal. Impression: Worsening bilateral infiltrates, over 3 days
--- NOTE | 2020-04-12 15:25 | NUR ---
NURSE NOTES: YENI Marinelli on the unit assessing pt after speaking to Dr Mata. No ventilator setting changes made at this time. Pt O2sat currently 89%. Will continue to monitor.
--- NOTE | 2020-04-12 15:25 | NUR ---
RESPIRATORY NOTE: No new ventilator order post ABG result. Pt saturation is currently 90% but will occasionally drop to 87-88%. Will continue to monitor.
--- NOTE | 2020-04-12 17:15 | NUR ---
NURSE NOTES: Pt cleaned and repositioned. Oral care done. O2sat remains in the 80's. Dr Mata aware.
[2020-04-12] MEDS: Bactrim-DS 1 tab ORAL SCH (17:55)
[2020-04-12] MEDS: Vancomycin 1 GM in NS 275 ML IVPB SCH (17:56)
--- NOTE | 2020-04-12 19:00 | NUR ---
NURSE NOTES: Received patient from PRIYANKA Lees. patient in sedated RASS -2. sinus rhythm on the monitor. ETT size 8, 25cm at the lip. AC 18 TV 750 FiO2 100% PEEP 5. OGT in place and glucerna 1.5 @50ml/hr. joseph in place and draining well to gravity. Rectal tube in place and draining well to gravity. noted left arm +4 edema due to WAYNE DVT. ALBERT PICC in place clean dry and intact. fentanyl @300mcg/hr and versed @20mg/hr. RW restraints in place. bed to lowest position and locked. call light within easy reach. side rails up x3. will continue plan of care.
--- NOTE | 2020-04-12 19:20 | NUR ---
NURSE HAND-OFF REPORT: Latest Vital Signs: Temperature 98.2 , Pulse 94 , B/P 113 /60 , Respiratory Rate 21 , O2 SAT 93 , Mechanical Ventilator, FiO2 100% . Vital Sign Comment: EKG Rhythm: Sinus Rhythm Rhythm change?: N MD Notified?: MD Response: Latest Hassan Fall Score: 50 Fall Risk: High Risk Safety Measures: Call light Within Reach, Bed Alarm Zone 3, Side Rails Side Rails x3, Bed position Low and Locked. Fall Precautions: Yellow Socks Yellow Gown Door Sign Patient Fall Education Report given to PRIYANKA Espinosa.
[2020-04-12] MEDS: Dyna-Hex 2% Top Sol 2oz TOPIC SCH (20:26)
[2020-04-12] MEDS: Amikacin 1,250 MG in NS 110 ML IV SCH (20:30)
[2020-04-13] VITALS (39 sets, daily range): BP systolic 98–155; BP diastolic 52–81
--- NOTE | 2020-04-13 | NUR ---
NURSE NOTES: blood glucose 133. no insulin given per sliding scale.
--- NOTE | 2020-04-13 01:18 | NUR ---
NURSE NOTES: ALBERT PICC line dressing changed. site is clean dry and intact
[2020-04-13] MEDS: Midazolam HCl 50mg/10ml vial 100 MG in NS 180 ML IV PRN ×5 (01:28→21:50)
[2020-04-13] MEDS: fentaNYL 2500mcg/NS 250ml 250 ML IV SCH ×4 (02:10→21:50)
[2020-04-13] MEDS: Vancomycin 1 GM in NS 275 ML IVPB SCH ×3 (02:10→17:46)
[2020-04-13] MEDS: Metoclopramide 10mg/2ml Inj IVP SCH ×4 (02:35→21:31)
[2020-04-13 04:39] LABS: HEMATOCRIT 31.5 % (42.0-52.0); MEAN CORPUSCULAR VOLUME 90 FL (80-99); PLATELET COUNT 204 K/UL (150-450); RED BLOOD COUNT 3.49 M/UL (4.70-6.10); RED CELL DISTRIBUTION WIDTH 17.6 % (11.6-14.8); WHITE BLOOD COUNT 4.9 K/UL (4.8-10.8)
[2020-04-13 04:49] LABS: PHOSPHORUS 4.2 MG/DL (2.5-4.9)
[2020-04-13 05:02] LABS: ALANINE AMINOTRANSFERASE 253 U/L (12-78); ALBUMIN 1.7 G/DL (3.4-5.0); ALBUMIN/GLOBULIN RATIO 0.5 (1.0-2.7); ALKALINE PHOSPHATASE 358 U/L (46-116); ANION GAP 1 mmol/L (5-15); ASPARTATE AMINO TRANSFERASE 47 U/L (15-37); BILIRUBIN,TOTAL 0.6 MG/DL (0.2-1.0); BLOOD UREA NITROGEN 17 mg/dL (7-18); CARBON DIOXIDE 35 MMOL/L (21-32); CHLORIDE 106 MMOL/L (98-107); CREATININE 0.5 MG/DL (0.55-1.30); POTASSIUM 4.8 MMOL/L (3.5-5.1); SODIUM 142 MMOL/L (136-145)
[2020-04-13] MEDS: NovoLOG Insulin Flexpen SUBQ SCH ×5 (06:08→23:28)
--- NOTE | 2020-04-13 06:52 | NUR ---
CASE MANAGEMENT:REVIEW 04/13/20 SI: COVID PNEUMONIA~INTUBATED 98.9 107 23 155/63 100% ON VENT SUPPORT W/100% FIO2 VENT: FIO2~100% AC~18 TV~750 PEEP~5.0 `CO2+35 CA-8.0 AST/ALT+47/253 IS: IV LASIX QD FENTANYL GTT VERSED GTT IV ZOSYN Q8HR IV AMIKACIN Q24 IV MICAFUNGIN Q24 IV VANCOMYCIN Q8HRS NORVASC NG Q12 IVF@30/HR LOVENOX SQ Q12 IV PROTONIX Q12 IV SOLUMEDROL 20MG Q12HRS BACTRIM NG Q24 IV REGLAN Q6HRS : ICU STATUS PLAN: NON VIOLENT RESTRAINTS
--- NOTE | 2020-04-13 07:00 | NUR ---
NURSE HAND-OFF REPORT: Latest Vital Signs: Temperature 98.9 , Pulse 70 , B/P 113 /62 , Respiratory Rate 18 , O2 SAT 100 , Mechanical Ventilator, O2 Flow Rate . Vital Sign Comment: stable EKG Rhythm: Sinus Rhythm Rhythm change?: N Notified?: Courtney Paige MD Response: Message left await call Latest Hassan Fall Score: 50 Fall Risk: High Risk Safety Measures: Call light Within Reach, Bed Alarm Zone 3, Side Rails Side Rails x3, Bed position Low and Locked. Fall Precautions: Yellow Socks Yellow Gown Door Sign Patient Fall Education Report given to PRIYANKA Lees.
--- NOTE | 2020-04-13 07:15 | NUR ---
NURSE NOTES: Received report and patient from PRIYANKA Espinosa. Pt is Sedated, RASS -2 on Fentanyl 300mcg/hr and Versed 20mg/hr. Pt orally intubated; ETT 8.0, 25cm @ the lip line. AC 18, TV 750, PEEP 5, FiO2 100%; O2sat 100% on library monitor. Pt has an OGT, running Glucerna @ 50mL/hr (goal). Rectal tube in place. Brownlee catheter present and draining with gravity to urometer. ALBERT PICC in place; dressing clean dry and intact. Saline locked PIV Lt FA 18g. Pt received and maintained on a Right soft wrist restraint for safety d/t attempting to pull tubing. Left arm weak, with +4 edema due to WAYNE DVT. Bed locked and in lowest position, with call light within reach. Will resume plan of care.
--- NOTE | 2020-04-13 07:52 | NUR ---
RD ASSESSMENT & RECOMMENDATIONS SEE CARE ACTIVITY FOR COMPLETE ASSESSMENT DAILY ESTIMATED NEEDS: Needs based on Critical care, wound 81kg abw 22-28 kcals/kg 2143-1923 total kcals 1.25-1.5 g protein/kg 101-122 g total protein 25-30 mL/kg 2095-3154 total fluid mLs NUTRITION DIAGNOSIS: * Inadequate oral intake R/T clinical and respiratory status as evidenced by COVID-19 ++, on continuous BIPAP, prolonged meal refusals, pt is now on TPN, pt is now orally intubated (03/28), now on OGT feeds. * Decreased sodium and fat needs r/t HTN and obesity as evidenced by pt w/ cardiac history, elev BP (159/98-> now improved, on BP meds and diuretics), BMI >30, obese per guidelines. (INACTIVE) CURRENT TF: NOW ORDERED-> Glucerna 1.5 goal of 50 + Prosource BID ENTERAL NUTRITION RECOMMENDATIONS: Glucerna 1.5 @ 50ml/hr x 24 hrs + Prosource 1pkt BID to provide 1200ml, 1800kcal, 99g prot, 926ml free water * Maintain current TF @ goal as tolerated * Con't Prosource 1pkt BID (additional 22g prot) to better meet est prot needs. TPN Comment: Now off TPN, on OGT feeds. ADDITIONAL RECOMMENDATIONS: 1) Maintain calibrated bedscale wts 2) Obtain HgA1C for eval 3) Pt now w/ rectal tube-> pt on Lactulose TID, continue DC Lactulose 4) Off tpn, LFT's trending down. 5) Monitor lytes, replete as needed (Na and BUN up) 6) Monitor BGs- improved, now off Levemir 7) Monitor for propofol resumed, now off
[2020-04-13] MEDS: Pantoprazole Inj IVP SCH ×2 (08:10→21:31)
[2020-04-13] MEDS: Solu-MEDROL 40mg Inj IVP SCH ×2 (08:10→21:31)
[2020-04-13] MEDS: Enoxaparin 80mg Inj SUBQ SCH ×2 (08:11→21:32)
--- NOTE | 2020-04-13 09:15 | NUR ---
NURSE NOTES: Pt turned and repositioned. Oral care done. O2sat maintaining at 99%. Pt remains on 100% FiO2
[2020-04-13] MEDS: Vitamin D 1000 units Tab GT SCH (09:46)
--- NOTE | 2020-04-13 11:10 | NUR ---
NURSE NOTES: Dr Mata making his rounds on the unit. Updated him on pt's current condition. No new orders
--- NOTE | 2020-04-13 11:23 | Pulmonology Progress Note ---
Subjective ROS Limited/Unobtainable: Yes Interval Events: Intubated 03/28/20 Constitutional: Reports: fever, other - fio2-100 % HEENT: Repors: no symptoms Respiratory: Reports: dry cough, shortness of breath Cardiovascular: Reports: no symptoms Gastrointestinal/Abdominal: Denies: nausea, vomiting, diarrhea Psychiatric: Reports: other - NA Skin: Denies: rash Musculoskeletal: Denies: pain Allergies: Coded Allergies: No Known Allergies (Unverified , 02/05/20) Objective Last 24 Hour Vital Signs Date Time Temp Pulse Resp B/P (MAP) Pulse Ox O2 Delivery O2 Flow Rate FiO2 04/13/20 11:17 67 18 100 04/13/20 11:00 64 18 111/61 (78) 100 04/13/20 11:00 18 111/61 Mechanical Ventilator 100 04/13/20 11:00 18 Mechanical Ventilator 100 04/13/20 10:15 18 107/60 Mechanical Ventilator 100 04/13/20 10:00 18 107/60 Mechanical Ventilator 100 04/13/20 10:00 18 Mechanical Ventilator 100 04/13/20 10:00 68 18 107/60 (76) 99 04/13/20 09:30 70 18 113/62 (79) 100 04/13/20 09:00 18 111/62 Mechanical Ventilator 100 04/13/20 09:00 18 Mechanical Ventilator 100 04/13/20 09:00 71 18 111/62 (78) 100 04/13/20 08:00 100 04/13/20 08:00 Mechanical Ventilator 04/13/20 08:00 98.8 68 18 107/60 (76) 100 04/13/20 08:00 18 107/60 Mechanical Ventilator 100 04/13/20 08:00 18 Mechanical Ventilator 100 04/13/20 07:00 70 18 113/62 (79) 100 04/13/20 07:00 18 Mechanical Ventilator 100 04/13/20 07:00 69 17 100 04/13/20 06:55 18 Mechanical Ventilator 100 04/13/20 06:00 18 112/63 Mechanical Ventilator 100 04/13/20 06:00 18 Mechanical Ventilator 40 04/13/20 06:00 76 18 112/63 (79) 100 04/13/20 05:30 85 18 116/63 (80) 100 04/13/20 05:00 95 18 124/67 (86) 99 04/13/20 05:00 18 124/67 Mechanical Ventilator 100 04/13/20 05:00 18 Mechanical Ventilator 100 04/13/20 04:30 107 23 155/63 (93) 65 04/13/20 04:00 Mechanical Ventilator 04/13/20 04:00 100 04/13/20 04:00 18 130/72 Mechanical Ventilator 100 04/13/20 04:00 18 Mechanical Ventilator 100 04/13/20 04:00 95 04/13/20 04:00 98.9 81 18 130/72 (91) 98 04/13/20 03:30 83 18 131/75 (93) 98 04/13/20 03:00 18 136/74 Mechanical Ventilator 100 04/13/20 03:00 18 Mechanical Ventilator 100 04/13/20 03:00 89 18 136/74 (94) 98 04/13/20 02:30 98 19 138/72 (94) 95 04/13/20 02:10 18 139/79 Mechanical Ventilator 100 04/13/20 02:10 18 139/79 Mechanical Ventilator 100 04/13/20 02:00 96 18 139/79 (99) 94 04/13/20 02:00 97.7 04/13/20 02:00 18 138/72 Mechanical Ventilator 100 04/13/20 02:00 18 Mechanical Ventilator 100 04/13/20 01:30 101 19 134/81 (98) 91 04/13/20 01:28 20 Mechanical Ventilator 100 04/13/20 01:20 95 19 100 04/13/20 01:00 101 21 118/66 (83) 95 04/13/20 01:00 20 134/81 Mechanical Ventilator 100 04/13/20 01:00 20 Mechanical Ventilator 100 04/13/20 00:30 106 21 119/62 (81) 91 04/13/20 00:00 100.0 110 26 138/74 (95) 95 04/13/20 00:00 23 119/62 Mechanical Ventilator 100 04/13/20 00:00 23 Mechanical Ventilator 100 04/13/20 00:00 Mechanical Ventilator 04/12/20 23:30 107 23 114/66 (82) 93 04/12/20 23:30 107 23 114/66 (82) 93 04/12/20 23:00 25 114/66 Mechanical Ventilator 100 04/12/20 23:00 25 Mechanical Ventilator 100 04/12/20 23:00 113 27 146/72 (96) 87 04/12/20 22:30 109 25 137/65 (89) 86 04/12/20 22:00 103 23 127/65 (85) 87 04/12/20 22:00 24 137/65 Mechanical Ventilator 100 04/12/20 22:00 24 Mechanical Ventilator 100 04/12/20 21:00 100 22 121/59 (79) 92 04/12/20 21:00 25 126/69 Mechanical Ventilator 100 04/12/20 21:00 25 Mechanical Ventilator 100 04/12/20 20:30 89 19 126/65 (85) 94 04/12/20 20:00 100 04/12/20 20:00 99.8 91 20 113/61 (78) 94 04/12/20 20:00 91 04/12/20 20:00 19 126/65 Mechanical Ventilator 100 04/12/20 20:00 19 100 04/12/20 20:00 Mechanical Ventilator 04/12/20 19:30 91 20 112/55 (74) 94 04/12/20 19:00 94 19 113/60 (77) 93 04/12/20 19:00 21 113/60 Mechanical Ventilator 100 04/12/20 19:00 21 Mechanical Ventilator 100 04/12/20 18:38 97 20 100 04/12/20 18:00 106 26 132/59 (83) 81 04/12/20 18:00 23 165/68 Mechanical Ventilator 100 04/12/20 18:00 23 Mechanical Ventilator 100 04/12/20 17:00 19 109/54 Mechanical Ventilator 100 04/12/20 17:00 19 Mechanical Ventilator 100 04/12/20 17:00 97 20 109/54 (72) 87 04/12/20 16:00 98.2 95 22 109/49 (69) 87 04/12/20 16:00 100 04/12/20 16:00 22 109/49 Mechanical Ventilator 100 04/12/20 16:00 22 Mechanical Ventilator 100 04/12/20 16:00 Mechanical Ventilator 04/12/20 16:00 99 04/12/20 15:19 84 18 100 04/12/20 15:00 20 111/53 Mechanical Ventilator 100 04/12/20 15:00 20 Mechanical Ventilator 100 04/12/20 15:00 87 19 111/53 (72) 88 2/10/21 14:00 20 124/57 Mechanical Ventilator 100 04/12/20 14:00 20 Mechanical Ventilator 100 04/12/20 14:00 91 19 124/57 (79) 81 04/12/20 14:00 93 21 124/57 (79) 79 04/12/20 13:45 20 Mechanical Ventilator 100 04/12/20 13:30 21 Mechanical Ventilator 100 04/12/20 13:30 99 22 138/62 (87) 75 04/12/20 13:20 94 21 100 04/12/20 13:15 21 Mechanical Ventilator 100 04/12/20 13:00 22 131/60 Mechanical Ventilator 100 04/12/20 13:00 22 Mechanical Ventilator 100 04/12/20 13:00 88 20 131/60 (83) 82 04/12/20 12:45 20 Mechanical Ventilator 100 04/12/20 12:30 83 18 125/64 (84) 88 04/12/20 12:30 22 Mechanical Ventilator 100 04/12/20 12:15 22 Mechanical Ventilator 100 04/12/20 12:00 Mechanical Ventilator 04/12/20 12:00 22 183/77 Mechanical Ventilator 100 04/12/20 12:00 22 Mechanical Ventilator 100 04/12/20 12:00 96 04/12/20 12:00 97.4 100 27 183/75 (111) 65 04/12/20 12:00 100 04/12/20 11:45 22 Mechanical Ventilator 100 04/12/20 11:30 22 Mechanical Ventilator 100 Intake and Output 04/12/20 04/13/20 19:00 07:00 Intake Total 2262.160 ml 1474.99 ml Output Total 2905 ml 2275 ml Balance -642.840 ml -800.01 ml Free Water 60 ml IV Total 1422.160 ml 814.99 ml Tube Feeding 600 ml 600 ml Other 240 ml Output Urine Total 2905 ml 2275 ml Stool Total 0 ml General Appearance: WD/WN, no acute distress HEENT: normocephalic, atraumatic Respiratory: chest wall non-tender Cardiovascular: normal rate, regular rhythm Abdomen: normal bowel sounds, soft, non tender, other - obese Microbiology Date/Time Source Procedure Growth Status 04/12/20 08:40 Sputum Gram Stain - Final Resulted 04/12/20 08:40 Sputum Sputum Culture - Preliminary NORMAL UPPER RESPIRATORY WILIAM AT 24 ... Resulted 04/11/20 18:55 Blood Blood Culture - Preliminary NO GROWTH AFTER 24 HOURS Resulted 04/11/20 18:40 Blood Blood Culture - Preliminary NO GROWTH AFTER 24 HOURS Resulted Laboratory Tests 04/12/20 13:45: Arterial Blood pH 7.425, Arterial Blood Partial Pressure CO2 51.7H, Arterial Blood Partial Pressure O2 42.4*L, Arterial Blood HCO3 33.2H, Arterial Blood Oxygen Saturation 79.1*L, Arterial Blood Base Excess 7.5H, Shemar Test Positive 04/12/20 17:30: Vancomycin Level Trough 15.5H 04/13/20 03:40: White Blood Count 4.9, Red Blood Count 3.49L, Hemoglobin 10.0L, Hematocrit 31.5L , Mean Corpuscular Volume 90, Mean Corpuscular Hemoglobin 28.7, Mean Corpuscular Hemoglobin Concent 31.8L, Red Cell Distribution Width 17.6H, Platelet Count 204, Mean Platelet Volume 7.6, Neutrophils (%) (Auto) , Lymphocytes (%) (Auto) , Mo nocytes (%) (Auto) , Eosinophils (%) (Auto) , Basophils (%) (Auto) , Sodium Level 142, Potassium Level 4.8, Chloride Level 106, Carbon Dioxide Level 35H, Anion Gap 1L, Blood Urea Nitrogen 17, Creatinine 0.5L, Estimat Glomerular Filtration Rate > 60, Glucose Level 142H, Calcium Level 8.0L, Phosphorus Level 4.2, Magnesium Level 2.0, Total Bilirubin 0.6, Aspartate Amino Transf (AST/SGOT) 47H, Alanine Aminotransferase (ALT/SGPT) 253H, Alkaline Phosphatase 358H, Total Protein 4.9L, Albumin 1.7L, Globulin 3.2, Albumin/Globulin Ratio 0.5L Current Medications Medications (Trade) Dose Ordered Sig/Dennis Route PRN Reason Start Time Stop Time Status Last Admin Dose Admin Acetaminophen (Tylenol) 650 mg Q4H PRN ORAL Temp >100.5 04/13/20 00:30 05/13/20 00:29 04/13/20 01:30 Amikacin Protocol (Amikacin pharmacy to dose) 1 ea DAILY PRN MISC Per rx protocol 04/11/20 17:30 05/11/20 17:29 Amikacin Sulfate 1250 mg/Sodium Chloride 115 ml @ 115 mls/hr Q24H IV 04/11/20 20:00 04/18/20 19:59 04/12/20 20:30 Bisacodyl (Dulcolax) 10 mg Q12H PRN RECTAL Constipation 03/18/20 16:45 06/16/20 16:44 Chlorhexidine Gluconate (Marlen-Hex 2%) 1 applic DAILY@2000 TOPIC 03/30/20 20:00 06/28/20 19:59 04/12/20 20:26 Dextrose (Dextrose 50%) 25 ml Q30M PRN IV Hypoglycemia 03/29/20 20:45 06/27/20 20:44 Dextrose (Dextrose 50%) 50 ml Q30M PRN IV Hypoglycemia 03/29/20 20:45 06/27/20 20:44 Enoxaparin Sodium (Lovenox) 80 mg EVERY 12 HOURS SUBQ 04/06/20 21:00 07/05/20 20:59 04/13/20 08:11 Fentanyl Citrate 250 ml @ 1 mls/hr Q24H IV 04/12/20 18:00 04/13/20 22:44 04/13/20 10:15 Furosemide (Lasix) 20 mg DAILY IV 04/12/20 11:00 05/12/20 10:59 04/13/20 08:10 Hydralazine HCl (Apresoline) 10 mg Q4H PRN IV For High Blood Pressure 03/30/20 12:15 06/28/20 12:14 04/03/20 21:00 Insulin Aspart (NovoLOG) Q6HR SUBQ 03/30/20 00:00 06/28/20 00:00 04/13/20 06:08 Labetalol HCl (Normodyne) 10 mg Q4H PRN IV sbp greater tahtn 160 03/28/20 17:30 04/27/20 17:29 Methylprednisolone Sodium Succinate (Solu-MEDROL) 20 mg Q12HR IVP 04/12/20 21:00 06/20/20 20:59 04/13/20 08:10 Metoclopramide HCl (Reglan) 10 mg Q6H IVP 03/30/20 15:00 04/29/20 14:59 04/13/20 08:10 Micafungin Sodium 100 mg/Sodium Chloride 100 ml @ 100 mls/hr Q24H IVPB 04/09/20 15:00 04/22/20 23:59 04/12/20 14:57 Midazolam HCl 100 mg/Sodium Chloride 200 ml @ 24 mls/hr Q24H PRN IV To Patient Comfort 04/11/20 16:30 04/13/20 16:29 04/13/20 06:55 Pantoprazole (Protonix) 40 mg EVERY 12 HOURS IVP 04/01/20 21:00 05/01/20 20:59 04/13/20 08:10 Piperacillin Sod/ Tazobactam Sod 3.375 gm/Dextrose 100 ml @ 25 mls/hr EVERY 8 HOURS IVPB 04/11/20 22:00 04/16/20 21:59 04/13/20 06:08 Trimethoprim/ Sulfamethoxazole (Bactrim-DS) 1 tab Q24H ORAL 03/29/20 17:00 05/10/20 16:59 04/12/20 17:55 Vancomycin HCl (Vanco pharmacy to dose) 1 ea DAILY PRN MISC Per rx protocol 04/11/20 17:30 05/11/20 17:29 Vancomycin HCl 1 gm/Sodium Chloride 275 ml @ 183.708 mls/hr Q8H IVPB 04/12/20 18:30 04/17/20 18:29 04/13/20 09:46 Vitamin D (Vitamin D) 10,000 unit DAILY GT 04/07/20 09:00 04/14/20 08:59 04/13/20 09:46 Assessment/Plan Assessment/Plan Assessment/Plan 1.COVID-19 pneumonia. - Completed specific therapies - On solumedrol 2. DVT ppx - on lovenox 3. Hypertension - no longer on meds - Not requiring pressors 4. Leukocytosis; - ID following - On abx - Budding yeast on blood CS 5. Elevated LFT - positive Hep C; treated in the past with IF 6. Respiratory failure -Intubated 03/28/20 -Family aware - Prognosis guarded - Vt 750; rate 18 -On sedation 7. Discussed with cardiology -No evidence for cardiac dysfunction or PE -tachycardic; will increase sedation 8. AMS -back on sedation - has apparent left arm paresis - Will consider CT brain when more stable S/p new PICC line On abx Slowly improving oxygenation Noted left upper extremity swelling. Has DVT; on full dose Lovenox Continue sedation, DC propofol given high triglycerides. Continue fentanyl and Versed. Saturations plummeted 04/12/20 when patient became agitated Now fully sedated on 90% FiO2 ; PEEP 5 John Mata MD Apr 13, 2020 11:23
--- NOTE | 2020-04-13 12:39 | Nephrology Progress Note ---
Assessment/Plan Problem List: (1) Dehydration (2) Electrolyte imbalance (3) COVID-19 virus infection (4) Pneumonia (5) DMII (diabetes mellitus, type 2) (6) Protein malnutrition Assessment Azotemia, hypernatremia Hypoalbuminemia Staff Otilia bacteremia COVID-19 isolation, pneumonia, bilateral infiltrate Hypertension Diabetes mellitus History of smoking Plan April 13: Status quo. Labs reviewed. Renal parameters electrolytes stable. Continue per current treatment plan. April 12: On higher FiO2. Will resume Lasix daily. Continue to monitor electrolytes and renal parameters. Per consultants. April 11: FiO2 went up to 85%. Renal parameters and electrolytes reasonably well-maintained. Will monitor serum potassium. Will give IV Lasix. April 10: Status quo. Labs reviewed. Remains intubated on ventilator with FiO2 of 65%. Remains full code. Stable from renal standpoint to view. Repeat vitamin D level on April 08 pending April 09: Status quo. Labs reviewed. Stable from renal standpoint of view. Continue per consultants. April 08: Discussed with RN. Labs reviewed. Clinically improving. Requires lower PEEP. Continue per pulmonary. Continue to monitor renal parameters. April 07: Remains full code and on ventilator. Labs reviewed. Renal parameters and electrolytes stable. Continue per consultants. Blood pressure marginally improved. April 06: Full code. On ventilator. Blood pressure 80-90 systolic. IV Lasix discontinued. Free water through tube feeding ordered. Continue to monitor electrolytes and serum sodium. Down on fentanyl as possible. Discussed with PRIYANKA Brown. Clonidine patch discontinued. April 05: Status quo. Remains full code. Remains intubated. Labs reviewed. Renal parameters stable. Serum sodium 150 unchanged. Continue per consultants. April 04: Remains intubated and on ventilator. Remains full code. Labs reviewed. Serum sodium 150 unchanged. Renal parameters stable. Continue per ID and pulmonary. April 03: Intubated. On ventilator. Full code. Labs reviewed. Serum sodium 150 unchanged. Continue to monitor renal parameters. Continue per pulmonary and ID. April 02: Full code. On ventilator. Discussed with RN. Serum sodium slightly higher. Will cut down on IV Lasix. Continue per consultants. Continue to monitor renal parameters and electrolytes. April 01: Full code. Remains on ventilator. Labs reviewed. Stable from renal standpoint of view. Continue per consultants. March 31: Full code . Remains intubated on ventilator. Labs reviewed. Patient appears toxic. Discussed with RN. Maintenance IV discontinued. Medication list reviewed. Blood pressure medication stopped due to low blood pressure. Levemir insulin stopped. Continue monitor blood sugar and sliding scale insulin. March 30: Full code. On ventilator. Labs reviewed. Clonidine patch dose increased. Lasix increased. 3% saline 1 time ordered. Continue to monitor electrolytes and renal parameters. March 29: Remains full code. On mechanical ventilation. On tube feeding. Will DC TPN. Will start on maintenance IV fluid. Continue to monitor renal parameters. March 28: On BiPAP. Full code. On TPN. Labs reviewed. Discussed with pharmacy. Continue as is. Watch serum potassium. March 27: Remains on BiPAP. No chemistry panel done today. Full code. On TPN. Will check lab tomorrow. March 26: Remains on BiPAP. Remains on TPN. Labs reviewed. Electrolytes and chemistries within normal limits. Continue as is. March 25: Remains on TPN. Labs reviewed. Discussed with pharmacy. Change IV Protonix to p.o. Continue 3% saline infusion with Lasix. Patient full code. March 24: Continue to be on TPN. Labs are reviewed. Aim to collect electrolytes. Discussed with pharmacy. Continue current consultants. March 23: Continues to be on TPN. Labs reviewed. Electrolytes and chemistries all acceptable. Discussed with pharmacy. Continue current management. March 22: On TPN. Labs reviewed. Low sodium noted. 3% saline to be continued. Continue to monitor electrolytes. Discussed with pharmacy. March 21: On TPN. Labs reviewed. Continue 3% saline and Lasix for mild hyponatremia. Continue TPN as these. Discussed with pharmacy. March 20: Remains on TPN. Labs reviewed. Serum sodium higher on IV Lasix and 3% saline infusion. Continue TPN as is. Continue to monitor renal parameters and electrolytes. Discussed with Dr. Mata March 19: Remains on TPN. Labs reviewed. Serum sodium 128. Will give 3% saline with IV Lasix. Continue to monitor electrolytes. No change in TPN composition. Discussed with pharmacy. March 18: Remains on TPN. Labs reviewed. Discussed with pharmacist. Will give 3 doses of IV Lasix 20 mg every 8 hours. Continue to monitor serum sodium electrolytes uric acid. White blood cells down. Continue per consultants. March 17: On TPN. Labs reviewed. Discussed with pharmacist. Sodium content increase. Continue to monitor CMP. Patient continues to have leukocytosis. March 16: On TPN. Labs reviewed. Discussed with pharmacist. Appropriate changes made. Continue to monitor electrolytes. March 15: Remains on TPN. Labs reviewed. Discussed with pharmacist. Continue per current management. March 14: Remains on TPN. Labs reviewed, stable. Vitamin D level low, replacement ordered. Continue to monitor electrolytes and renal parameters. March 13: Patient remains on TPN. Discussed with pharmacist. TPN's sodium content adjusted. Labs reviewed. Continue to monitor electrolytes. Blood pressure remains stable. Continue per consultants. March 12: Patient on TPN. Labs reviewed. CPK remains elevated. Abnormal electrolytes and high blood sugar discussed with pharmacist and TPN adjusted. Continue to monitor labs. Oral Protonix added. Ibuprofen discontinued. Can continue to monitor electrolytes and chemistries. Levemir for high blood sugar added. March 11: Patient on TPN. Labs as of 11:15 AM is still pending. Continue per current treatment plan. Will check labs and adjust TPN as needed. Continue per consultants. March 10: Patient on TPN. Labs reviewed. Electrolytes overall stable. CPK is elevated. Will monitor electrolyte, CPK level, lipid panel. Continue per consultants. Discussed with pharmacist. Discussed with RN. Nutritional evaluation noted. Previously: D5W 100 cc an hour Monitor electrolytes renal parameters TPN and Intralipid ordered Will follow Continue per consultants Dietary consult requested Subjective ROS Limited/Unobtainable: Yes Objective Objective Last 24 Hour Vital Signs Date Time Temp Pulse Resp B/P (MAP) Pulse Ox O2 Delivery O2 Flow Rate FiO2 04/13/20 12:00 Mechanical Ventilator 04/13/20 12:00 99.0 64 18 103/56 (72) 100 04/13/20 12:00 18 103/56 Mechanical Ventilator 100 04/13/20 12:00 18 Mechanical Ventilator 100 04/13/20 12:00 100 04/13/20 11:50 18 Mechanical Ventilator 100 04/13/20 11:17 67 18 100 04/13/20 11:00 64 18 111/61 (78) 100 04/13/20 11:00 18 111/61 Mechanical Ventilator 100 04/13/20 11:00 18 Mechanical Ventilator 100 04/13/20 10:15 18 107/60 Mechanical Ventilator 100 04/13/20 10:00 18 107/60 Mechanical Ventilator 100 04/13/20 10:00 18 Mechanical Ventilator 100 04/13/20 10:00 68 18 107/60 (76) 99 04/13/20 09:30 70 18 113/62 (79) 100 04/13/20 09:00 18 111/62 Mechanical Ventilator 100 04/13/20 09:00 18 Mechanical Ventilator 100 04/13/20 09:00 71 18 111/62 (78) 100 04/13/20 08:00 100 04/13/20 08:00 Mechanical Ventilator 04/13/20 08:00 98.8 68 18 107/60 (76) 100 04/13/20 08:00 18 107/60 Mechanical Ventilator 100 04/13/20 08:00 18 Mechanical Ventilator 100 04/13/20 07:00 70 18 113/62 (79) 100 04/13/20 07:00 18 Mechanical Ventilator 100 04/13/20 07:00 69 17 100 04/13/20 06:55 18 Mechanical Ventilator 100 04/13/20 06:00 18 112/63 Mechanical Ventilator 100 04/13/20 06:00 18 Mechanical Ventilator 40 04/13/20 06:00 76 18 112/63 (79) 100 04/13/20 05:30 85 18 116/63 (80) 100 04/13/20 05:00 95 18 124/67 (86) 99 04/13/20 05:00 18 124/67 Mechanical Ventilator 100 04/13/20 05:00 18 Mechanical Ventilator 100 04/13/20 04:30 107 23 155/63 (93) 65 04/13/20 04:00 Mechanical Ventilator 04/13/20 04:00 100 04/13/20 04:00 18 130/72 Mechanical Ventilator 100 04/13/20 04:00 18 Mechanical Ventilator 100 04/13/20 04:00 95 04/13/20 04:00 98.9 81 18 130/72 (91) 98 04/13/20 03:30 83 18 131/75 (93) 98 04/13/20 03:00 18 136/74 Mechanical Ventilator 100 04/13/20 03:00 18 Mechanical Ventilator 100 04/13/20 03:00 89 18 136/74 (94) 98 04/13/20 02:30 98 19 138/72 (94) 95 04/13/20 02:10 18 139/79 Mechanical Ventilator 100 04/13/20 02:10 18 139/79 Mechanical Ventilator 100 04/13/20 02:00 96 18 139/79 (99) 94 04/13/20 02:00 97.7 04/13/20 02:00 18 138/72 Mechanical Ventilator 100 04/13/20 02:00 18 Mechanical Ventilator 100 04/13/20 01:30 101 19 134/81 (98) 91 04/13/20 01:28 20 Mechanical Ventilator 100 04/13/20 01:20 95 19 100 04/13/20 01:00 101 21 118/66 (83) 95 04/13/20 01:00 20 134/81 Mechanical Ventilator 100 04/13/20 01:00 20 Mechanical Ventilator 100 04/13/20 00:30 106 21 119/62 (81) 91 04/13/20 00:00 100.0 110 26 138/74 (95) 95 04/13/20 00:00 23 119/62 Mechanical Ventilator 100 04/13/20 00:00 23 Mechanical Ventilator 100 04/13/20 00:00 Mechanical Ventilator 04/12/20 23:30 107 23 114/66 (82) 93 04/12/20 23:30 107 23 114/66 (82) 93 04/12/20 23:00 25 114/66 Mechanical Ventilator 100 04/12/20 23:00 25 Mechanical Ventilator 100 04/12/20 23:00 113 27 146/72 (96) 87 04/12/20 22:30 109 25 137/65 (89) 86 04/12/20 22:00 103 23 127/65 (85) 87 04/12/20 22:00 24 137/65 Mechanical Ventilator 100 04/12/20 22:00 24 Mechanical Ventilator 100 04/12/20 21:00 100 22 121/59 (79) 92 04/12/20 21:00 25 126/69 Mechanical Ventilator 100 04/12/20 21:00 25 Mechanical Ventilator 100 04/12/20 20:30 89 19 126/65 (85) 94 04/12/20 20:00 100 04/12/20 20:00 99.8 91 20 113/61 (78) 94 04/12/20 20:00 91 04/12/20 20:00 19 126/65 Mechanical Ventilator 100 04/12/20 20:00 19 100 04/12/20 20:00 Mechanical Ventilator 04/12/20 19:30 91 20 112/55 (74) 94 04/12/20 19:00 94 19 113/60 (77) 93 04/12/20 19:00 21 113/60 Mechanical Ventilator 100 04/12/20 19:00 21 Mechanical Ventilator 100 04/12/20 18:38 97 20 100 04/12/20 18:00 106 26 132/59 (83) 81 04/12/20 18:00 23 165/68 Mechanical Ventilator 100 04/12/20 18:00 23 Mechanical Ventilator 100 04/12/20 17:00 19 109/54 Mechanical Ventilator 100 04/12/20 17:00 19 Mechanical Ventilator 100 04/12/20 17:00 97 20 109/54 (72) 87 04/12/20 16:00 98.2 95 22 109/49 (69) 87 04/12/20 16:00 100 04/12/20 16:00 22 109/49 Mechanical Ventilator 100 04/12/20 16:00 22 Mechanical Ventilator 100 04/12/20 16:00 Mechanical Ventilator 04/12/20 16:00 99 04/12/20 15:19 84 18 100 04/12/20 15:00 20 111/53 Mechanical Ventilator 100 04/12/20 15:00 20 Mechanical Ventilator 100 04/12/20 15:00 87 19 111/53 (72) 88 04/12/20 14:00 20 124/57 Mechanical Ventilator 100 04/12/20 14:00 20 Mechanical Ventilator 100 04/12/20 14:00 91 19 124/57 (79) 81 04/12/20 14:00 93 21 124/57 (79) 79 04/12/20 13:45 20 Mechanical Ventilator 100 04/12/20 13:30 21 Mechanical Ventilator 100 04/12/20 13:30 99 22 138/62 (87) 75 04/12/20 13:20 94 21 100 04/12/20 13:15 21 Mechanical Ventilator 100 04/12/20 13:00 22 131/60 Mechanical Ventilator 100 04/12/20 13:00 22 Mechanical Ventilator 100 04/12/20 13:00 88 20 131/60 (83) 82 04/12/20 12:45 20 Mechanical Ventilator 100 Intake and Output 04/12/20 04/13/20 19:00 07:00 Intake Total 2262.160 ml 1474.99 ml Output Total 2905 ml 2275 ml Balance -642.840 ml -800.01 ml Free Water 60 ml IV Total 1422.160 ml 814.99 ml Tube Feeding 600 ml 600 ml Other 240 ml Output Urine Total 2905 ml 2275 ml Stool Total 0 ml Current Medications Medications (Trade) Dose Ordered Sig/Dennis Route PRN Reason Start Time Stop Time Status Last Admin Dose Admin Acetaminophen (Tylenol) 650 mg Q4H PRN ORAL Temp >100.5 04/13/20 00:30 05/13/20 00:29 04/13/20 01:30 Amikacin Protocol (Amikacin pharmacy to dose) 1 ea DAILY PRN MISC Per rx protocol 04/11/20 17:30 05/11/20 17:29 Amikacin Sulfate 1250 mg/Sodium Chloride 115 ml @ 115 mls/hr Q24H IV 04/11/20 20:00 04/18/20 19:59 04/12/20 20:30 Bisacodyl (Dulcolax) 10 mg Q12H PRN RECTAL Constipation 03/18/20 16:45 06/16/20 16:44 Chlorhexidine Gluconate (Marlen-Hex 2%) 1 applic DAILY@2000 TOPIC 03/30/20 20:00 06/28/20 19:59 04/12/20 20:26 Dextrose (Dextrose 50%) 25 ml Q30M PRN IV Hypoglycemia 03/29/20 20:45 06/27/20 20:44 Dextrose (Dextrose 50%) 50 ml Q30M PRN IV Hypoglycemia 03/29/20 20:45 06/27/20 20:44 Enoxaparin Sodium (Lovenox) 80 mg EVERY 12 HOURS SUBQ 04/06/20 21:00 07/05/20 20:59 04/13/20 08:11 Fentanyl Citrate 250 ml @ 1 mls/hr Q24H IV 04/12/20 18:00 04/13/20 22:44 04/13/20 10:15 Furosemide (Lasix) 20 mg DAILY IV 04/12/20 11:00 05/12/20 10:59 04/13/20 08:10 Hydralazine HCl (Apresoline) 10 mg Q4H PRN IV For High Blood Pressure 03/30/20 12:15 06/28/20 12:14 04/03/20 21:00 Insulin Aspart (NovoLOG) Q6HR SUBQ 03/30/20 00:00 06/28/20 00:00 04/13/20 12:16 Labetalol HCl (Normodyne) 10 mg Q4H PRN IV sbp greater tahtn 160 03/28/20 17:30 04/27/20 17:29 Methylprednisolone Sodium Succinate (Solu-MEDROL) 20 mg Q12HR IVP 04/12/20 21:00 06/20/20 20:59 04/13/20 08:10 Metoclopramide HCl (Reglan) 10 mg Q6H IVP 03/30/20 15:00 04/29/20 14:59 04/13/20 08:10 Micafungin Sodium 100 mg/Sodium Chloride 100 ml @ 100 mls/hr Q24H IVPB 04/09/20 15:00 04/22/20 23:59 04/12/20 14:57 Midazolam HCl 100 mg/Sodium Chloride 200 ml @ 24 mls/hr Q24H PRN IV To Patient Comfort 04/11/20 16:30 04/13/20 16:29 04/13/20 11:50 Pantoprazole (Protonix) 40 mg EVERY 12 HOURS IVP 04/01/20 21:00 05/01/20 20:59 04/13/20 08:10 Piperacillin Sod/ Tazobactam Sod 3.375 gm/Dextrose 100 ml @ 25 mls/hr EVERY 8 HOURS IVPB 04/11/20 22:00 04/16/20 21:59 04/13/20 13:12 Trimethoprim/ Sulfamethoxazole (Bactrim-DS) 1 tab Q24H ORAL 03/29/20 17:00 05/10/20 16:59 04/12/20 17:55 Vancomycin HCl (Vanco pharmacy to dose) 1 ea DAILY PRN MISC Per rx protocol 04/11/20 17:30 05/11/20 17:29 Vancomycin HCl 1 gm/Sodium Chloride 275 ml @ 183.708 mls/hr Q8H IVPB 04/12/20 18:30 04/17/20 18:29 04/13/20 09:46 Vitamin D (Vitamin D) 10,000 unit DAILY GT 04/07/20 09:00 04/14/20 08:59 04/13/20 09:46 Laboratory Tests 04/12/20 13:45: Arterial Blood pH 7.425, Arterial Blood Partial Pressure CO2 51.7H, Arterial Blood Partial Pressure O2 42.4*L, Arterial Blood HCO3 33.2H, Arterial Blood Oxygen Saturation 79.1*L, Arterial Blood Base Excess 7.5H, Shemar Test Positive 04/12/20 17:30: Vancomycin Level Trough 15.5H 04/13/20 03:40: White Blood Count 4.9, Red Blood Count 3.49L, Hemoglobin 10.0L, Hematocrit 31.5L , Mean Corpuscular Volume 90, Mean Corpuscular Hemoglobin 28.7, Mean Corpuscular Hemoglobin Concent 31.8L, Red Cell Distribution Width 17.6H, Platelet Count 204, Mean Platelet Volume 7.6, Neutrophils (%) (Auto) , Lymphocytes (%) (Auto) , Monocytes (%) (Auto) , Eosinophils (%) (Auto) , Basophils (%) (Auto) , Sodium Level 142, Potassium Level 4.8, Chloride Level 106, Carbon Dioxide Level 35H, Anion Gap 1L, Blood Urea Nitrogen 17, Creatinine 0.5L, Estimat Glomerular Filtration Rate > 60, Glucose Level 142H, Calcium Level 8.0L, Phosphorus Level 4.2, Magnesium Level 2.0, Total Bilirubin 0.6, Aspartate Amino Transf (AST/SGOT) 47H, Alanine Aminotransferase (ALT/SGPT) 253H, Alkaline Phosphatase 358H, Total Protein 4.9L, Albumin 1.7L, Globulin 3.2, Albumin/Globulin Ratio 0.5L Height (Feet): 5 Height (Inches): 10.00 Weight (Pounds): 240 General Appearance: no apparent distress EENT: other - Intubated on ventilator Cardiovascular: normal rate Respiratory/Chest: decreased breath sounds Abdomen: soft Rubin Cooper MD Apr 13, 2020 12:39
--- NOTE | 2020-04-13 13:00 | NUR ---
NURSE NOTES: Pt remains sedated, RASS -2, on Fentanyl 300mcg/hr and Versed 20mg/hr. O2sat 100%. No distress noted at this time.
--- NOTE | 2020-04-13 13:11 | General Progress Note ---
Subjective ROS Limited/Unobtainable: No Allergies: Coded Allergies: No Known Allergies (Unverified , 02/05/20) Objective Last 24 Hour Vital Signs Date Time Temp Pulse Resp B/P (MAP) Pulse Ox O2 Delivery O2 Flow Rate FiO2 04/13/20 13:00 61 18 101/57 (72) 100 04/13/20 13:00 18 101/57 Mechanical Ventilator 100 04/13/20 13:00 18 Mechanical Ventilator 100 04/13/20 12:00 Mechanical Ventilator 04/13/20 12:00 99.0 64 18 103/56 (72) 100 04/13/20 12:00 18 103/56 Mechanical Ventilator 100 04/13/20 12:00 18 Mechanical Ventilator 100 04/13/20 12:00 62 04/13/20 12:00 100 04/13/20 11:50 18 Mechanical Ventilator 100 04/13/20 11:17 67 18 100 04/13/20 11:00 64 18 111/61 (78) 100 04/13/20 11:00 18 111/61 Mechanical Ventilator 100 04/13/20 11:00 18 Mechanical Ventilator 100 04/13/20 10:15 18 107/60 Mechanical Ventilator 100 04/13/20 10:00 18 107/60 Mechanical Ventilator 100 04/13/20 10:00 18 Mechanical Ventilator 100 04/13/20 10:00 68 18 107/60 (76) 99 04/13/20 09:30 70 18 113/62 (79) 100 04/13/20 09:00 18 111/62 Mechanical Ventilator 100 04/13/20 09:00 18 Mechanical Ventilator 100 04/13/20 09:00 71 18 111/62 (78) 100 04/13/20 08:00 100 04/13/20 08:00 Mechanical Ventilator 04/13/20 08:00 98.8 68 18 107/60 (76) 100 04/13/20 08:00 68 04/13/20 08:00 18 107/60 Mechanical Ventilator 100 04/13/20 08:00 18 Mechanical Ventilator 100 04/13/20 07:00 70 18 113/62 (79) 100 04/13/20 07:00 18 Mechanical Ventilator 100 04/13/20 07:00 69 17 100 04/13/20 06:55 18 Mechanical Ventilator 100 04/13/20 06:00 18 112/63 Mechanical Ventilator 100 04/13/20 06:00 18 Mechanical Ventilator 40 04/13/20 06:00 76 18 112/63 (79) 100 04/13/20 05:30 85 18 116/63 (80) 100 04/13/20 05:00 95 18 124/67 (86) 99 04/13/20 05:00 18 124/67 Mechanical Ventilator 100 04/13/20 05:00 18 Mechanical Ventilator 100 04/13/20 04:30 107 23 155/63 (93) 65 04/13/20 04:00 Mechanical Ventilator 04/13/20 04:00 100 04/13/20 04:00 18 130/72 Mechanical Ventilator 100 04/13/20 04:00 18 Mechanical Ventilator 100 04/13/20 04:00 95 04/13/20 04:00 98.9 81 18 130/72 (91) 98 04/13/20 03:30 83 18 131/75 (93) 98 04/13/20 03:00 18 136/74 Mechanical Ventilator 100 04/13/20 03:00 18 Mechanical Ventilator 100 04/13/20 03:00 89 18 136/74 (94) 98 04/13/20 02:30 98 19 138/72 (94) 95 04/13/20 02:10 18 139/79 Mechanical Ventilator 100 04/13/20 02:10 18 139/79 Mechanical Ventilator 100 04/13/20 02:00 96 18 139/79 (99) 94 04/13/20 02:00 97.7 04/13/20 02:00 18 138/72 Mechanical Ventilator 100 04/13/20 02:00 18 Mechanical Ventilator 100 04/13/20 01:30 101 19 134/81 (98) 91 04/13/20 01:28 20 Mechanical Ventilator 100 04/13/20 01:20 95 19 100 04/13/20 01:00 101 21 118/66 (83) 95 04/13/20 01:00 20 134/81 Mechanical Ventilator 100 04/13/20 01:00 20 Mechanical Ventilator 100 04/13/20 00:30 106 21 119/62 (81) 91 04/13/20 00:00 100.0 110 26 138/74 (95) 95 04/13/20 00:00 23 119/62 Mechanical Ventilator 100 04/13/20 00:00 23 Mechanical Ventilator 100 04/13/20 00:00 Mechanical Ventilator 04/12/20 23:30 107 23 114/66 (82) 93 04/12/20 23:30 107 23 114/66 (82) 93 04/12/20 23:00 25 114/66 Mechanical Ventilator 100 04/12/20 23:00 25 Mechanical Ventilator 100 04/12/20 23:00 113 27 146/72 (96) 87 04/12/20 22:30 109 25 137/65 (89) 86 04/12/20 22:00 103 23 127/65 (85) 87 04/12/20 22:00 24 137/65 Mechanical Ventilator 100 04/12/20 22:00 24 Mechanical Ventilator 100 04/12/20 21:00 100 22 121/59 (79) 92 04/12/20 21:00 25 126/69 Mechanical Ventilator 100 04/12/20 21:00 25 Mechanical Ventilator 100 04/12/20 20:30 89 19 126/65 (85) 94 04/12/20 20:00 100 04/12/20 20:00 99.8 91 20 113/61 (78) 94 04/12/20 20:00 91 04/12/20 20:00 19 126/65 Mechanical Ventilator 100 04/12/20 20:00 19 100 04/12/20 20:00 Mechanical Ventilator 04/12/20 19:30 91 20 112/55 (74) 94 04/12/20 19:00 94 19 113/60 (77) 93 04/12/20 19:00 21 113/60 Mechanical Ventilator 100 04/12/20 19:00 21 Mechanical Ventilator 100 04/12/20 18:38 97 20 100 04/12/20 18:00 106 26 132/59 (83) 81 04/12/20 18:00 23 165/68 Mechanical Ventilator 100 04/12/20 18:00 23 Mechanical Ventilator 100 04/12/20 17:00 19 109/54 Mechanical Ventilator 100 04/12/20 17:00 19 Mechanical Ventilator 100 04/12/20 17:00 97 20 109/54 (72) 87 04/12/20 16:00 98.2 95 22 109/49 (69) 87 04/12/20 16:00 100 04/12/20 16:00 22 109/49 Mechanical Ventilator 100 04/12/20 16:00 22 Mechanical Ventilator 100 04/12/20 16:00 Mechanical Ventilator 04/12/20 16:00 99 04/12/20 15:19 84 18 100 04/12/20 15:00 20 111/53 Mechanical Ventilator 100 04/12/20 15:00 20 Mechanical Ventilator 100 04/12/20 15:00 87 19 111/53 (72) 88 04/12/20 14:00 20 124/57 Mechanical Ventilator 100 04/12/20 14:00 20 Mechanical Ventilator 100 04/12/20 14:00 91 19 124/57 (79) 81 04/12/20 14:00 93 21 124/57 (79) 79 04/12/20 13:45 20 Mechanical Ventilator 100 04/12/20 13:30 21 Mechanical Ventilator 100 04/12/20 13:30 99 22 138/62 (87) 75 04/12/20 13:20 94 21 100 04/12/20 13:15 21 Mechanical Ventilator 100 Intake and Output 04/12/20 04/13/20 19:00 07:00 Intake Total 2262.160 ml 1474.99 ml Output Total 2905 ml 2275 ml Balance -642.840 ml -800.01 ml Free Water 60 ml IV Total 1422.160 ml 814.99 ml Tube Feeding 600 ml 600 ml Other 240 ml Output Urine Total 2905 ml 2275 ml Stool Total 0 ml Laboratory Tests 04/12/20 13:45: Arterial Blood pH 7.425, Arterial Blood Partial Pressure CO2 51.7H, Arterial Blood Partial Pressure O2 42.4*L, Arterial Blood HCO3 33.2H, Arterial Blood Oxygen Saturation 79.1*L, Arterial Blood Base Excess 7.5H, Shemar Test Positive 04/12/20 17:30: Vancomycin Level Trough 15.5H 04/13/20 03:40: White Blood Count 4.9, Red Blood Count 3.49L, Hemoglobin 10.0L, Hematocrit 31.5L , Mean Corpuscular Volume 90, Mean Corpuscular Hemoglobin 28.7, Mean Corpuscular Hemoglobin Concent 31.8L, Red Cell Distribution Width 17.6H, Platelet Count 204, Mean Platelet Volume 7.6, Neutrophils (%) (Auto) , Lymphocytes (%) (Auto) , Monocytes (%) (Auto) , Eosinophils (%) (Auto) , Basophils (%) (Auto) , Sodium Level 142, Potassium Level 4.8, Chloride Level 106, Carbon Dioxide Level 35H, Anion Gap 1L, Blood Urea Nitrogen 17, Creatinine 0.5L, Estimat Glomerular Filtration Rate > 60, Glucose Level 142H, Calcium Level 8.0L, Phosphorus Level 4.2, Magnesium Level 2.0, Total Bilirubin 0.6, Aspartate Amino Transf (AST/SGOT) 47H, Alanine Aminotransferase (ALT/SGPT) 253H, Alkaline Phosphatase 358H, Total Protein 4.9L, Albumin 1.7L, Globulin 3.2, Albumin/Globulin Ratio 0.5L Height (Feet): 5 Height (Inches): 10.00 Weight (Pounds): 240 General Appearance: no apparent distress EENT: normal ENT inspection Neck: supple Cardiovascular: normal rate Respiratory/Chest: decreased breath sounds Abdomen: normal bowel sounds, non tender, soft Extremities: non-tender Assessment/Plan Status: not improved, unchanged Assessment/Plan: hep c + but neg RNA OGTF reglan 10 mg repeat labs fu LFTS will fu Da Quintero MD Apr 13, 2020 13:11
--- NOTE | 2020-04-13 14:12 | NUR ---
INSURANCE CLINCALS/REVIEW FAXED TO [employer] T: [phone] #1 F: [phone] [employer]:JACQUELINE JAMES T: [phone] F: [phone] [facility] #[phone]
--- NOTE | 2020-04-13 15:00 | NUR ---
NURSE NOTES: Pt turned and repositioned. Oral care done. Pt is afebrile at this time. No distress noted.
--- NOTE | 2020-04-13 15:35 | Infectious Diseases Prog Note ---
Assessment/Plan Assessment/Plan ASSESSMENT AND PLAN: 1. staph aureus bacteremia/mssa, ? source, ? endocarditis, sepsis, leukocytosis, ? CAP, PJP less likely with HIV negative and steroids < 1 month covid-19 +, hypoxia, sob, chest x-ray worse, ? PE, ? HCAP/aspiration pna recurrent fevers - ? fungal, ? OI leukocytosis noted - ? new infection, ? steroids cocci serology negative, legionella negative, beta 1,3 D-glucan wnl, Il-16 - 13.7 elevated LFT's - ? TPN, ? Bactrim - US without gallbladder disease, + steatosis - d/w GI - TPN more likely than bactrim as etiology e.coli uti - s/p treatment with rocephin, s/p treatment for presumptive pneumocystis pna + yeast in blood, fungemia, ? line infection, line changed worsening respiratory status, ? new aspiration pna/hcap, ? sepsis - zosyn and vancomycin, surveillance cultures negative to date - micafungin - day # 11/14 (post negative blood cultures - 04/02/20) - picc line changed - bactrim for pneumocystis prophylaxis, s/p pneumocystis treatment - s/p tx for mssa bacteremia and ? endocarditis - monitor hypoxia, labs and chest x-ray - guarded condition 2. covid-19 isolation 3. Hypertension history. Blood pressure treatment primary care team. 4. Elevated blood sugars. Blood sugar treatment per primary care team. 5. No known drug allergies. 6. Social history is positive for smoking. 7. Family history is noncontributory. 8. MAR was noted. 9. Case was discussed with RN. 10. Continue treatment per primary consultants. Subjective Constitutional: Reports: fever - low grade temperature HEENT: Reports: congestion Respiratory: Reports: shortness of breath Cardiovascular: Reports: other - no pressors Gastrointestinal/Abdominal: Denies: nausea, vomiting, diarrhea Genitourinary: Reports: other - + joseph Neurologic: Reports: weakness Psychiatric: Reports: other - NA Skin: Denies: rash Hematologic: Denies: bleeding Musculoskeletal: Reports: other - NA Allergies: Coded Allergies: No Known Allergies (Unverified , 02/05/20) Objective Last 24 Hour Vital Signs Date Time Temp Pulse Resp B/P (MAP) Pulse Ox O2 Delivery O2 Flow Rate FiO2 04/13/20 14:00 60 18 105/57 (73) 100 04/13/20 14:00 18 105/57 Mechanical Ventilator 100 04/13/20 14:00 18 Mechanical Ventilator 100 04/13/20 13:00 61 18 101/57 (72) 100 04/13/20 13:00 18 101/57 Mechanical Ventilator 100 04/13/20 13:00 18 Mechanical Ventilator 100 04/13/20 12:00 Mechanical Ventilator 04/13/20 12:00 99.0 64 18 103/56 (72) 100 04/13/20 12:00 18 103/56 Mechanical Ventilator 100 04/13/20 12:00 18 Mechanical Ventilator 100 04/13/20 12:00 62 04/13/20 12:00 100 04/13/20 11:50 18 Mechanical Ventilator 100 04/13/20 11:17 67 18 100 04/13/20 11:00 64 18 111/61 (78) 100 04/13/20 11:00 18 111/61 Mechanical Ventilator 100 04/13/20 11:00 18 Mechanical Ventilator 100 04/13/20 10:15 18 107/60 Mechanical Ventilator 100 04/13/20 10:00 18 107/60 Mechanical Ventilator 100 04/13/20 10:00 18 Mechanical Ventilator 100 04/13/20 10:00 68 18 107/60 (76) 99 04/13/20 09:30 70 18 113/62 (79) 100 04/13/20 09:00 18 111/62 Mechanical Ventilator 100 04/13/20 09:00 18 Mechanical Ventilator 100 04/13/20 09:00 71 18 111/62 (78) 100 04/13/20 08:00 100 04/13/20 08:00 Mechanical Ventilator 04/13/20 08:00 98.8 68 18 107/60 (76) 100 04/13/20 08:00 68 04/13/20 08:00 18 107/60 Mechanical Ventilator 100 04/13/20 08:00 18 Mechanical Ventilator 100 04/13/20 07:00 70 18 113/62 (79) 100 04/13/20 07:00 18 Mechanical Ventilator 100 04/13/20 07:00 69 17 100 04/13/20 06:55 18 Mechanical Ventilator 100 04/13/20 06:00 18 112/63 Mechanical Ventilator 100 04/13/20 06:00 18 Mechanical Ventilator 40 04/13/20 06:00 76 18 112/63 (79) 100 04/13/20 05:30 85 18 116/63 (80) 100 04/13/20 05:00 95 18 124/67 (86) 99 04/13/20 05:00 18 124/67 Mechanical Ventilator 100 04/13/20 05:00 18 Mechanical Ventilator 100 04/13/20 04:30 107 23 155/63 (93) 65 04/13/20 04:00 Mechanical Ventilator 04/13/20 04:00 100 04/13/20 04:00 18 130/72 Mechanical Ventilator 100 04/13/20 04:00 18 Mechanical Ventilator 100 04/13/20 04:00 95 04/13/20 04:00 98.9 81 18 130/72 (91) 98 04/13/20 03:30 83 18 131/75 (93) 98 04/13/20 03:00 18 136/74 Mechanical Ventilator 100 04/13/20 03:00 18 Mechanical Ventilator 100 04/13/20 03:00 89 18 136/74 (94) 98 04/13/20 02:30 98 19 138/72 (94) 95 04/13/20 02:10 18 139/79 Mechanical Ventilator 100 04/13/20 02:10 18 139/79 Mechanical Ventilator 100 04/13/20 02:00 96 18 139/79 (99) 94 04/13/20 02:00 97.7 04/13/20 02:00 18 138/72 Mechanical Ventilator 100 04/13/20 02:00 18 Mechanical Ventilator 100 04/13/20 01:30 101 19 134/81 (98) 91 04/13/20 01:28 20 Mechanical Ventilator 100 04/13/20 01:20 95 19 100 04/13/20 01:00 101 21 118/66 (83) 95 04/13/20 01:00 20 134/81 Mechanical Ventilator 100 04/13/20 01:00 20 Mechanical Ventilator 100 04/13/20 00:30 106 21 119/62 (81) 91 04/13/20 00:00 100.0 110 26 138/74 (95) 95 04/13/20 00:00 23 119/62 Mechanical Ventilator 100 04/13/20 00:00 23 Mechanical Ventilator 100 04/13/20 00:00 Mechanical Ventilator 04/12/20 23:30 107 23 114/66 (82) 93 04/12/20 23:30 107 23 114/66 (82) 93 04/12/20 23:00 25 114/66 Mechanical Ventilator 100 04/12/20 23:00 25 Mechanical Ventilator 100 04/12/20 23:00 113 27 146/72 (96) 87 04/12/20 22:30 109 25 137/65 (89) 86 04/12/20 22:00 103 23 127/65 (85) 87 04/12/20 22:00 24 137/65 Mechanical Ventilator 100 04/12/20 22:00 24 Mechanical Ventilator 100 04/12/20 21:00 100 22 121/59 (79) 92 04/12/20 21:00 25 126/69 Mechanical Ventilator 100 04/12/20 21:00 25 Mechanical Ventilator 100 04/12/20 20:30 89 19 126/65 (85) 94 04/12/20 20:00 100 04/12/20 20:00 99.8 91 20 113/61 (78) 94 04/12/20 20:00 91 04/12/20 20:00 19 126/65 Mechanical Ventilator 100 04/12/20 20:00 19 100 04/12/20 20:00 Mechanical Ventilator 04/12/20 19:30 91 20 112/55 (74) 94 04/12/20 19:00 94 19 113/60 (77) 93 04/12/20 19:00 21 113/60 Mechanical Ventilator 100 04/12/20 19:00 21 Mechanical Ventilator 100 04/12/20 18:38 97 20 100 04/12/20 18:00 106 26 132/59 (83) 81 04/12/20 18:00 23 165/68 Mechanical Ventilator 100 04/12/20 18:00 23 Mechanical Ventilator 100 04/12/20 17:00 19 109/54 Mechanical Ventilator 100 04/12/20 17:00 19 Mechanical Ventilator 100 04/12/20 17:00 97 20 109/54 (72) 87 04/12/20 16:00 98.2 95 22 109/49 (69) 87 04/12/20 16:00 100 04/12/20 16:00 22 109/49 Mechanical Ventilator 100 04/12/20 16:00 22 Mechanical Ventilator 100 04/12/20 16:00 Mechanical Ventilator 04/12/20 16:00 99 Height (Feet): 5 Height (Inches): 10.00 Weight (Pounds): 240 General Appearance: other - on vent HEENT: normocephalic, atraumatic, anicteric, no JVD Respiratory/Chest: crackles/rales, rhonchi - bilaterally Cardiovascular: normal rate, regular rhythm, no gallop/murmur Abdomen: normal bowel sounds, soft, non tender, no organomegaly, non distended Genitourinary: other - + joseph Extremities: no cyanosis Skin: no rash Neurologic/Psychiatric: rail track layer II-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 The infiltrates are typical for Covid 19. No evidence of pulmonary embolus. CT abdomen and pelvis: IMPRESSION: 1. Scattered hepatic hypodense lesions, too small to characterize on this examination without intravenous contrast. 2. Colonic diverticulosis without evidence of acute diverticulitis. 3. Scattered enlarged mesenteric lymph nodes, presumably reactive. teral pneumonia. The infiltrates are typical for Covid 19. No evidence of pulmonary embolus. Chest x-ray - 12/19/19 - Indication: Shortness of breath Technique: One view of the chest Comparison: 02/17/2020 Findings: Interim worsening of bilateral infiltrates, particularly on the right. The heart is borderline enlarged. The pleural spaces are clear. Left arm PICC is again demonstrated Impression: Worsening bilateral infiltrates over one day, likely pneumonia CT chest - 02/19/20 - IMPRESSION: Increased extensive patchy ground-glass opacities and densities throughout the lungs, suggestive of Covid 19 infection. Chest x-ray 02/23/20 - Procedure: XRAY Chest 1v As Indication: Reason For Exam: INFECT Technique: One view of the chest Comparison: 02/20/2020 Findings: Allowing for differences in exposure technique, bilateral mid and lower lung infiltrates are probably unchanged. The heart size is normal. The pleural spaces are clear. Impression: Unchanged, over 4 days, findings as above. Chest x-ray - 02/25/20 - FINDINGS: Lungs: Interval slightly worsening bilateral airspace disease. Pleural space: Unremarkable. No pneumothorax. Heart: Unremarkable. No cardiomegaly. Mediastinum: Unremarkable. Bones/joints: Unremarkable. IMPRESSION: Interval slightly worsening bilateral airspace disease. Chest x-ray - 03/02/20 - Procedure: XRAY Chest 1v Indication: Shortness of breath Technique: One view of the chest Comparison: 02/25/2020 Findings: Bilateral interstitial and airspace infiltrates are unchanged. The heart size is normal. Left arm PICC is again demonstrated Impression: Unchanged, over one day, findings as above. Chest x-ray - 03/06/20 - Procedure: XRAY Chest 1v Indication: Shortness of breath Technique: One view of the chest Comparison: 03/02/2020 Findings: Bilateral infiltrates are unchanged. Normal heart size. Pleural spaces are clear Chest x-ray - 03/12/10 - Impression: COMPARISON: Chest radiograph March 06, 2020. FINDINGS/IMPRESSION: Improving basilar infiltrates. Follow chest radiograph recommended. The upper lung finley are clear. No pneumothorax. Stable cardiomegaly. Stable left upper extremity PICC line. anged, over 4 days, findings as above. Chest x-ray - 03/17/20 - Procedure: XRAY Chest 1v Indication: Shortness of breath Technique: One view of the chest Comparison: 03/12/2020 Findings: Left arm PICC is again demonstrated. Infiltrates are unchanged. The heart size is upper limits of normal. Impression: Unchanged, over 5 days, findings as above. Abdominal US - IMPRESSION: 1. Gallbladder is normal. 2. Hepatic steatosis. 3. 1.7 cm cyst right kidney. Impression. Chest x-ray - Procedure: XRAY Chest 1v Indication: Shortness of breath Technique: One view of the chest Comparison: 03/17/2020 Findings: Bilateral right greater than left infiltrates again demonstrated. The heart size is normal. There is a left arm PICC in good position. Impression: Unchanged, over 5 days, findings as above. Chest x-ray - 03/29/20 - Procedure: XRAY Chest 1v Indication: Cough Technique: One view of the chest Comparison: 03/28/2020 Findings: Bilateral infiltrates are unchanged or slightly worse, allowing for differences in exposure technique. The pleural spaces are clear. The heart size is normal. Stable satisfactory position of endotracheal tube, left arm PICC. Orogastric tube has retracted somewhat the position remains satisfactory. Impression: Stable to slightly worse bilateral infiltrates. 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 Interim advancement of orogastric tube as well. Bilateral infiltrates are unchanged. Left arm PICC remains Impression: Improved and now satisfactory tube positions as described. ICU nurse Maeve notified at the time of interpretation Chest x-ray - 04/02/20 - COMPARISON: Chest x-rays dated 03/31/20 and 03/12/20. FINDINGS: Lungs: No significant change in bilateral prominent interstitial markings. The lungs are otherwise clear without focal consolidation. Pleural space: Unremarkable. The costophrenic angles are sharp. No visible pneumothorax. Heart: Unremarkable. No cardiomegaly. Mediastinum: Unremarkable. Bones/joints: Unremarkable. Tubes, lines and devices: Endotracheal tube tip 6.5 cm above the sunny. NG tube tip in the distal stomach. Telemetry leads overlie the thorax. IMPRESSION: No significant change in bilateral prominent interstitial markings. Procedure: XRAY Chest 1v Procedure: XRAY Chest 1v Reason for study: Shortness of breath 04/06/20 - Comparison films: 04/02/2020. FINDINGS: Endotracheal tube and NG tube remain in place. There is worsening of right basilar infiltrates. Some haziness in left lung base unchanged. Cardiac and mediastinal silhouette are within normal limits. CP angles are sharp. The bony thorax appear unremarkable. IMPRESSION: Worsening of right basilar infiltrate. Chest x-ray - 04/09/20 - Procedure: XRAY Chest 1v FILM CXR 1 VIEW INDICATION: Infection COMPARISON: April 05, 2020 FINDINGS: Single frontal view demonstrates a normal cardiomediastinal silhouette. Endotracheal tube in place with tip above the sunny. Elevation of the right hemidiaphragm. Interstitial prominence with bilateral lower lobe infiltrates. Lung bases appear worse from the prior exam. Small right effusion. Right-sided PICC line with tip in the superior vena cava. Enteric tube in place. IMPRESSION: Interstitial prominence and bilateral lower lobe pneumonia with worsening appearance from the prior study. Chest x-ray - 04/12/20 - Procedure: XRAY Chest 1v Indication: Shortness of breath Technique: One view of the chest Comparison: 04/09/2020 Findings: Stable satisfactory tube and line positions. Bilateral infiltrates have worsened slightly since prior study. The heart size is normal. Impression: Worsening bilateral infiltrates, over 3 days Microbiology Date/Time Source Procedure Growth Status 04/12/20 08:40 Urine,Clean Catch Urine Culture - Preliminary NO GROWTH Resulted 04/12/20 08:40 Sputum Gram Stain - Final Resulted 04/12/20 08:40 Sputum Sputum Culture - Preliminary NORMAL UPPER RESPIRATORY WILIAM AT 24 ... Resulted 04/11/20 18:55 Blood Blood Culture - Preliminary NO GROWTH AFTER 24 HOURS Resulted 04/11/20 18:40 Blood Blood Culture - Preliminary NO GROWTH AFTER 24 HOURS Resulted Laboratory Tests Test 04/12/20 17:30 04/13/20 03:40 Vancomycin Level Trough 15.5 ug/mL (5.0-12.0) H White Blood Count 4.9 K/UL (4.8-10.8) Red Blood Count 3.49 M/UL (4.70-6.10) L Hemoglobin 10.0 G/DL (14.2-18.0) L Hematocrit 31.5 % (42.0-52.0) L Mean Corpuscular Volume 90 FL (80-99) Mean Corpuscular Hemoglobin 28.7 PG (27.0-31.0) Mean Corpuscular Hemoglobin Concent 31.8 G/DL (32.0-36.0) L Red Cell Distribution Width 17.6 % (11.6-14.8) H Platelet Count 204 K/UL (150-450) Mean Platelet Volume 7.6 FL (6.5-10.1) Neutrophils (%) (Auto) % (45.0-75.0) Lymphocytes (%) (Auto) % (20.0-45.0) Monocytes (%) (Auto) % (1.0-10.0) Eosinophils (%) (Auto) % (0.0-3.0) Basophils (%) (Auto) % (0.0-2.0) Sodium Level 142 MMOL/L (136-145) Potassium Level 4.8 MMOL/L (3.5-5.1) Chloride Level 106 MMOL/L (98-107) Carbon Dioxide Level 35 MMOL/L (21-32) H Anion Gap 1 mmol/L (5-15) L Blood Urea Nitrogen 17 mg/dL (7-18) Creatinine 0.5 MG/DL (0.55-1.30) L Estimat Glomerular Filtration Rate > 60 mL/min (>60) Glucose Level 142 MG/DL (74-106) H Calcium Level 8.0 MG/DL (8.5-10.1) L Phosphorus Level 4.2 MG/DL (2.5-4.9) Magnesium Level 2.0 MG/DL (1.8-2.4) Total Bilirubin 0.6 MG/DL (0.2-1.0) Aspartate Amino Transf (AST/SGOT) 47 U/L (15-37) H Alanine Aminotransferase (ALT/SGPT) 253 U/L (12-78) H Alkaline Phosphatase 358 U/L (46-116) H Total Protein 4.9 G/DL (6.4-8.2) L Albumin 1.7 G/DL (3.4-5.0) L Globulin 3.2 g/dL Albumin/Globulin Ratio 0.5 (1.0-2.7) L Current Medications Medications (Trade) Dose Ordered Sig/Dennis Route PRN Reason Start Time Stop Time Status Last Admin Dose Admin Acetaminophen (Tylenol) 650 mg Q4H PRN ORAL Temp >100.5 04/13/20 00:30 05/13/20 00:29 04/13/20 01:30 Bisacodyl (Dulcolax) 10 mg Q12H PRN RECTAL Constipation 03/18/20 16:45 06/16/20 16:44 Chlorhexidine Gluconate (Marlen-Hex 2%) 1 applic DAILY@2000 TOPIC 03/30/20 20:00 06/28/20 19:59 04/12/20 20:26 Dextrose (Dextrose 50%) 25 ml Q30M PRN IV Hypoglycemia 03/29/20 20:45 06/27/20 20:44 Dextrose (Dextrose 50%) 50 ml Q30M PRN IV Hypoglycemia 03/29/20 20:45 06/27/20 20:44 Enoxaparin Sodium (Lovenox) 80 mg EVERY 12 HOURS SUBQ 04/06/20 21:00 07/05/20 20:59 04/13/20 08:11 Fentanyl Citrate 250 ml @ 1 mls/hr Q24H IV 04/12/20 18:00 04/13/20 22:44 04/13/20 10:15 Furosemide (Lasix) 20 mg DAILY IV 04/12/20 11:00 05/12/20 10:59 04/13/20 08:10 Hydralazine HCl (Apresoline) 10 mg Q4H PRN IV For High Blood Pressure 03/30/20 12:15 06/28/20 12:14 04/03/20 21:00 Insulin Aspart (NovoLOG) Q6HR SUBQ 03/30/20 00:00 06/28/20 00:00 04/13/20 12:16 Labetalol HCl (Normodyne) 10 mg Q4H PRN IV sbp greater tahtn 160 03/28/20 17:30 04/27/20 17:29 Methylprednisolone Sodium Succinate (Solu-MEDROL) 20 mg Q12HR IVP 04/12/20 21:00 06/20/20 20:59 04/13/20 08:10 Metoclopramide HCl (Reglan) 10 mg Q6H IVP 03/30/20 15:00 04/29/20 14:59 04/13/20 08:10 Micafungin Sodium 100 mg/Sodium Chloride 100 ml @ 100 mls/hr Q24H IVPB 04/09/20 15:00 04/22/20 23:59 04/12/20 14:57 Midazolam HCl 100 mg/Sodium Chloride 200 ml @ 24 mls/hr Q24H PRN IV To Patient Comfort 04/11/20 16:30 04/13/20 16:29 04/13/20 11:50 Pantoprazole (Protonix) 40 mg EVERY 12 HOURS IVP 04/01/20 21:00 05/01/20 20:59 04/13/20 08:10 Piperacillin Sod/ Tazobactam Sod 3.375 gm/Dextrose 100 ml @ 25 mls/hr EVERY 8 HOURS IVPB 04/11/20 22:00 04/16/20 21:59 04/13/20 13:12 Trimethoprim/ Sulfamethoxazole (Bactrim-DS) 1 tab Q24H ORAL 03/29/20 17:00 05/10/20 16:59 04/12/20 17:55 Vancomycin HCl ([facility] pharmacy to dose) 1 ea DAILY PRN MISC Per rx protocol 04/11/20 17:30 05/11/20 17:29 Vancomycin HCl 1 gm/Sodium Chloride 275 ml @ 183.708 mls/hr Q8H IVPB 04/12/20 18:30 04/17/20 18:29 04/13/20 09:46 Vitamin D (Vitamin D) 10,000 unit DAILY GT 04/07/20 09:00 04/14/20 08:59 04/13/20 09:46 Kisha Salazar MD Apr 13, 2020 15:35
[2020-04-13] MEDS: Bactrim-DS 1 tab ORAL SCH (16:15)
--- NOTE | 2020-04-13 17:00 | NUR ---
NURSE NOTES: Pt cleaned and repositioned for comfort. Pt remains on Fentanyl @ 300mcg/hr and Versed 20mg/hr. No distress noted. O2sat 100%
--- NOTE | 2020-04-13 17:30 | NUR ---
RESPIRATORY NOTE: Kevin fast changed at this time. No facial wounds found. New Optifoam placed bi-laterally.
--- NOTE | 2020-04-13 18:55 | NUR ---
NURSE NOTES: Dr Prieto on the unit making his rounds. Updated him on pt's current condition. No new orders given at this time.
--- NOTE | 2020-04-13 19:00 | NUR ---
NURSE NOTES: Received patient from PRIYANK[facility] Lees. patient is sedated. sinus rhythm on the monitor. ETT 8, 25cm at the lip. AC 18 TV 750 FiO2 100% PEEP 5. OGT in place and tube feeding running glucerna 1.5 @ 50ml/hr. rectal tube in place and draining well to gravity. joseph in place and draining well to gravity. ALBERT PICC in place, dressing clean dry and intact. right wrist restraints in place. bed to lowest position and locked. call light within easy reach. side rails up x3. will continue plan of care.
--- NOTE | 2020-04-13 19:02 | Cardiology Progress Note ---
Assessment/Plan Assessment/Plan Acute covid 19 pneumonia hypoxemia infiltrate bilat bacteremia hypernatremia / hyponatremia mild abn lfts tachy post intubation fever fungemia dvt upper ext remains on 100 % agian full sedated with fentanyl and versed low grade fevers cxr shosw worsening of lower lobe infiltrates hypoxemia unlikely cardiac related tube feeding being tolerated echo reviewed last on 04/06 still shows normal lv function no valve pathology 04/12 cxr reviwed worsening lower lobes will reorder for tomorrow tele reviewed sinus remains critical now is on full dose anticoag due to dvt ue \ is getting diuretic again saturating at 100% whiel sedated on the vent bp and heart rate are fine covid pcr negative , however considering that it took 3 tests to finally initially identify his covid infection i am not sure if we can trust Subjective ROS Limited/Unobtainable: Yes Subjective per rn Ptresting quietly in bed sedated,noted no resp distress orally intubated,ETT Objective Last 24 Hour Vital Signs Date Time Temp Pulse Resp B/P (MAP) Pulse Ox O2 Delivery O2 Flow Rate FiO2 04/13/20 18:30 86 18 131/64 (86) 98 04/13/20 18:10 18 138/64 Mechanical Ventilator 100 04/13/20 18:00 18 138/64 Mechanical Ventilator 100 04/13/20 18:00 18 Mechanical Ventilator 100 04/13/20 18:00 85 18 138/64 (88) 99 04/13/20 17:30 61 18 101/52 (68) 99 04/13/20 17:00 18 101/52 Mechanical Ventilator 100 04/13/20 17:00 18 Mechanical Ventilator 100 04/13/20 17:00 61 18 103/58 (73) 100 04/13/20 16:45 18 Mechanical Ventilator 100 04/13/20 16:00 61 04/13/20 16:00 Mechanical Ventilator 04/13/20 16:00 18 100/59 Mechanical Ventilator 100 04/13/20 16:00 18 Mechanical Ventilator 100 04/13/20 16:00 100 04/13/20 16:00 98.9 61 18 100/59 (73) 100 04/13/20 15:30 59 18 102/56 (71) 100 04/13/20 15:15 61 18 100 04/13/20 15:00 18 102/56 Mechanical Ventilator 100 04/13/20 15:00 18 Mechanical Ventilator 100 04/13/20 15:00 60 18 98/54 (69) 100 04/13/20 14:00 60 18 105/57 (73) 100 04/13/20 14:00 18 105/57 Mechanical Ventilator 100 04/13/20 14:00 18 Mechanical Ventilator 100 04/13/20 13:00 61 18 101/57 (72) 100 04/13/20 13:00 18 101/57 Mechanical Ventilator 100 04/13/20 13:00 18 Mechanical Ventilator 100 04/13/20 12:00 Mechanical Ventilator 04/13/20 12:00 99.0 64 18 103/56 (72) 100 04/13/20 12:00 18 103/56 Mechanical Ventilator 100 04/13/20 12:00 18 Mechanical Ventilator 100 04/13/20 12:00 62 04/13/20 12:00 100 04/13/20 11:50 18 Mechanical Ventilator 100 04/13/20 11:17 67 18 100 04/13/20 11:00 64 18 111/61 (78) 100 04/13/20 11:00 18 111/61 Mechanical Ventilator 100 04/13/20 11:00 18 Mechanical Ventilator 100 04/13/20 10:15 18 107/60 Mechanical Ventilator 100 04/13/20 10:00 18 107/60 Mechanical Ventilator 100 04/13/20 10:00 18 Mechanical Ventilator 100 04/13/20 10:00 68 18 107/60 (76) 99 04/13/20 09:30 70 18 113/62 (79) 100 04/13/20 09:00 18 111/62 Mechanical Ventilator 100 04/13/20 09:00 18 Mechanical Ventilator 100 04/13/20 09:00 71 18 111/62 (78) 100 04/13/20 08:00 100 04/13/20 08:00 Mechanical Ventilator 04/13/20 08:00 98.8 68 18 107/60 (76) 100 04/13/20 08:00 68 04/13/20 08:00 18 107/60 Mechanical Ventilator 100 04/13/20 08:00 18 Mechanical Ventilator 100 04/13/20 07:00 70 18 113/62 (79) 100 04/13/20 07:00 18 Mechanical Ventilator 100 04/13/20 07:00 69 17 100 04/13/20 06:55 18 Mechanical Ventilator 100 04/13/20 06:00 18 112/63 Mechanical Ventilator 100 04/13/20 06:00 18 Mechanical Ventilator 40 04/13/20 06:00 76 18 112/63 (79) 100 04/13/20 05:30 85 18 116/63 (80) 100 04/13/20 05:00 95 18 124/67 (86) 99 04/13/20 05:00 18 124/67 Mechanical Ventilator 100 04/13/20 05:00 18 Mechanical Ventilator 100 04/13/20 04:30 107 23 155/63 (93) 65 04/13/20 04:00 Mechanical Ventilator 04/13/20 04:00 100 04/13/20 04:00 18 130/72 Mechanical Ventilator 100 04/13/20 04:00 18 Mechanical Ventilator 100 04/13/20 04:00 95 04/13/20 04:00 98.9 81 18 130/72 (91) 98 04/13/20 03:30 83 18 131/75 (93) 98 04/13/20 03:00 18 136/74 Mechanical Ventilator 100 04/13/20 03:00 18 Mechanical Ventilator 100 04/13/20 03:00 89 18 136/74 (94) 98 04/13/20 02:30 98 19 138/72 (94) 95 04/13/20 02:10 18 139/79 Mechanical Ventilator 100 04/13/20 02:10 18 139/79 Mechanical Ventilator 100 04/13/20 02:00 96 18 139/79 (99) 94 04/13/20 02:00 97.7 04/13/20 02:00 18 138/72 Mechanical Ventilator 100 04/13/20 02:00 18 Mechanical Ventilator 100 04/13/20 01:30 101 19 134/81 (98) 91 04/13/20 01:28 20 Mechanical Ventilator 100 04/13/20 01:20 95 19 100 04/13/20 01:00 101 21 118/66 (83) 95 04/13/20 01:00 20 134/81 Mechanical Ventilator 100 04/13/20 01:00 20 Mechanical Ventilator 100 04/13/20 00:30 106 21 119/62 (81) 91 04/13/20 00:00 100.0 110 26 138/74 (95) 95 04/13/20 00:00 23 119/62 Mechanical Ventilator 100 04/13/20 00:00 23 Mechanical Ventilator 100 04/13/20 00:00 Mechanical Ventilator 04/12/20 23:30 107 23 114/66 (82) 93 04/12/20 23:30 107 23 114/66 (82) 93 04/12/20 23:00 25 114/66 Mechanical Ventilator 100 04/12/20 23:00 25 Mechanical Ventilator 100 04/12/20 23:00 113 27 146/72 (96) 87 04/12/20 22:30 109 25 137/65 (89) 86 04/12/20 22:00 103 23 127/65 (85) 87 04/12/20 22:00 24 137/65 Mechanical Ventilator 100 04/12/20 22:00 24 Mechanical Ventilator 100 04/12/20 21:00 100 22 121/59 (79) 92 04/12/20 21:00 25 126/69 Mechanical Ventilator 100 04/12/20 21:00 25 Mechanical Ventilator 100 04/12/20 20:30 89 19 126/65 (85) 94 04/12/20 20:00 100 04/12/20 20:00 99.8 91 20 113/61 (78) 94 04/12/20 20:00 91 04/12/20 20:00 19 126/65 Mechanical Ventilator 100 04/12/20 20:00 19 100 04/12/20 20:00 Mechanical Ventilator 04/12/20 19:30 91 20 112/55 (74) 94 04/12/20 19:00 94 19 113/60 (77) 93 04/12/20 19:00 21 113/60 Mechanical Ventilator 100 04/12/20 19:00 21 Mechanical Ventilator 100 General Appearance: no apparent distress, on vent, patient on isolation, isolation precautions Extremities: no swelling Intake and Output 04/12/20 04/13/20 19:00 07:00 Intake Total 2262.160 ml 1474.99 ml Output Total 2905 ml 2275 ml Balance -642.840 ml -800.01 ml Free Water 60 ml IV Total 1422.160 ml 814.99 ml Tube Feeding 600 ml 600 ml Other 240 ml Output Urine Total 2905 ml 2275 ml Stool Total 0 ml Laboratory Tests Test 04/13/20 03:40 White Blood Count 4.9 K/UL (4.8-10.8) Red Blood Count 3.49 M/UL (4.70-6.10) L Hemoglobin 10.0 G/DL (14.2-18.0) L Hematocrit 31.5 % (42.0-52.0) L Mean Corpuscular Volume 90 FL (80-99) Mean Corpuscular Hemoglobin 28.7 PG (27.0-31.0) Mean Corpuscular Hemoglobin Concent 31.8 G/DL (32.0-36.0) L Red Cell Distribution Width 17.6 % (11.6-14.8) H Platelet Count 204 K/UL (150-450) Mean Platelet Volume 7.6 FL (6.5-10.1) Neutrophils (%) (Auto) % (45.0-75.0) Lymphocytes (%) (Auto) % (20.0-45.0) Monocytes (%) (Auto) % (1.0-10.0) Eosinophils (%) (Auto) % (0.0-3.0) Basophils (%) (Auto) % (0.0-2.0) Sodium Level 142 MMOL/L (136-145) Potassium Level 4.8 MMOL/L (3.5-5.1) Chloride Level 106 MMOL/L (98-107) Carbon Dioxide Level 35 MMOL/L (21-32) H Anion Gap 1 mmol/L (5-15) L Blood Urea Nitrogen 17 mg/dL (7-18) Creatinine 0.5 MG/DL (0.55-1.30) L Estimat Glomerular Filtration Rate > 60 mL/min (>60) Glucose Level 142 MG/DL (74-106) H Calcium Level 8.0 MG/DL (8.5-10.1) L Phosphorus Level 4.2 MG/DL (2.5-4.9) Magnesium Level 2.0 MG/DL (1.8-2.4) Total Bilirubin 0.6 MG/DL (0.2-1.0) Aspartate Amino Transf (AST/SGOT) 47 U/L (15-37) H Alanine Aminotransferase (ALT/SGPT) 253 U/L (12-78) H Alkaline Phosphatase 358 U/L (46-116) H Total Protein 4.9 G/DL (6.4-8.2) L Albumin 1.7 G/DL (3.4-5.0) L Globulin 3.2 g/dL Albumin/Globulin Ratio 0.5 (1.0-2.7) L Microbiology Date/Time Source Procedure Growth Status 04/12/20 08:40 Urine,Clean Catch Urine Culture - Preliminary NO GROWTH Resulted 04/12/20 08:40 Sputum Gram Stain - Final Resulted 04/12/20 08:40 Sputum Sputum Culture - Preliminary NORMAL UPPER RESPIRATORY WILIAM AT 24 ... Resulted 04/11/20 18:55 Blood Blood Culture - Preliminary NO GROWTH AFTER 24 HOURS Resulted 04/11/20 18:40 Blood Blood Culture - Preliminary NO GROWTH AFTER 24 HOURS Resulted Objective pt in covid 19 isoaltion with acute infection Manan Awan MD Apr 13, 2020 19:02
--- NOTE | 2020-04-13 19:15 | NUR ---
NURSE HAND-OFF REPORT: Latest Vital Signs: Temperature 98.9 , Pulse 77 , B/P 118 /68 , Respiratory Rate 18 , O2 SAT 98 , Mechanical Ventilator, FiO2 100% . Vital Sign Comment: EKG Rhythm: Sinus Rhythm Rhythm change?: N MD Notified?: MD Response: Latest Hassan Fall Score: 50 Fall Risk: High Risk Safety Measures: Call light Within Reach, Bed Alarm Zone 3, Side Rails Side Rails x3, Bed position Low and Locked. Fall Precautions: Yellow Socks Yellow Gown Door Sign Patient Fall Education Report given to PRIYANKA Espinosa.
[2020-04-13] MEDS: Dyna-Hex 2% Top Sol 2oz TOPIC SCH (20:32)
--- NOTE | 2020-04-13 23:20 | NUR ---
NURSE NOTES: RT came at bedside and titrated FiO2 from 100% to 90%.
[2020-04-14] VITALS (47 sets, daily range): BP systolic 101–220; BP diastolic 55–90
[2020-04-14] MEDS: Vancomycin 1 GM in NS 275 ML IVPB SCH ×3 (02:20→17:45)
[2020-04-14] MEDS: Metoclopramide 10mg/2ml Inj IVP SCH ×4 (02:20→20:48)
[2020-04-14] MEDS: Midazolam HCl 50mg/10ml vial 100 MG in NS 180 ML IV PRN ×3 (02:21→13:40)
[2020-04-14] MEDS: fentaNYL 2500mcg/NS 250ml 250 ML IV SCH ×3 (02:22→18:53)
--- NOTE | 2020-04-14 02:30 | NUR ---
NURSE NOTES: bed bath performed. vital signs stable
[2020-04-14 05:01] LABS: HEMATOCRIT 30.9 % (42.0-52.0); HEMOGLOBIN 9.4 G/DL (14.2-18.0); MEAN CORPUSCULAR VOLUME 92 FL (80-99); PLATELET COUNT 198 K/UL (150-450); RED BLOOD COUNT 3.37 M/UL (4.70-6.10); RED CELL DISTRIBUTION WIDTH 17.9 % (11.6-14.8); WHITE BLOOD COUNT 5.5 K/UL (4.8-10.8)
[2020-04-14 05:29] LABS: ALANINE AMINOTRANSFERASE 201 U/L (12-78); ALBUMIN 1.7 G/DL (3.4-5.0); ALBUMIN/GLOBULIN RATIO 0.5 (1.0-2.7); ALKALINE PHOSPHATASE 309 U/L (46-116); ANION GAP 2 mmol/L (5-15); ASPARTATE AMINO TRANSFERASE 34 U/L (15-37); BILIRUBIN,TOTAL 0.6 MG/DL (0.2-1.0); BLOOD UREA NITROGEN 19 mg/dL (7-18); CARBON DIOXIDE 34 MMOL/L (21-32); CHLORIDE 106 MMOL/L (98-107); CREATININE 0.5 MG/DL (0.55-1.30); POTASSIUM 4.6 MMOL/L (3.5-5.1); SODIUM 142 MMOL/L (136-145)
--- NOTE | 2020-04-14 05:52 | General Progress Note ---
Subjective ROS Limited/Unobtainable: No Allergies: Coded Allergies: No Known Allergies (Unverified , 02/05/20) Objective Last 24 Hour Vital Signs Date Time Temp Pulse Resp B/P (MAP) Pulse Ox O2 Delivery O2 Flow Rate FiO2 04/14/20 04:39 79 18 90 04/14/20 04:30 66 18 110/59 (76) 98 04/14/20 04:00 90 04/14/20 04:00 78 04/14/20 04:00 99.0 68 18 120/62 (81) 97 04/14/20 04:00 Mechanical Ventilator 04/14/20 03:30 76 18 133/72 (92) 95 04/14/20 03:17 82 18 90 04/14/20 03:00 89 24 157/85 (109) 83 04/14/20 02:30 62 18 110/60 (77) 98 04/14/20 02:22 18 113/57 Endotracheal Tube 80 04/14/20 02:21 17 Mechanical Ventilator 90 04/14/20 02:00 68 18 113/57 (75) 98 04/14/20 02:00 18 133/72 Mechanical Ventilator 90 04/14/20 02:00 18 Mechanical Ventilator 90 04/14/20 01:30 67 18 113/59 (77) 98 04/14/20 01:00 68 18 116/60 (78) 97 04/14/20 01:00 18 113/59 Mechanical Ventilator 90 04/14/20 01:00 18 Mechanical Ventilator 90 04/14/20 00:43 65 18 90 04/14/20 00:30 71 18 115/59 (77) 95 04/14/20 00:00 90 04/14/20 00:00 78 04/14/20 00:00 18 115/59 Mechanical Ventilator 90 04/14/20 00:00 18 Mechanical Ventilator 90 04/14/20 00:00 Mechanical Ventilator 04/14/20 00:00 98.9 67 18 113/55 (74) 95 04/13/20 23:30 65 18 116/57 (76) 96 04/13/20 23:10 67 18 90 04/13/20 23:00 64 18 110/60 (77) 98 04/13/20 23:00 18 116/57 Mechanical Ventilator 90 04/13/20 23:00 18 Mechanical Ventilator 90 04/13/20 22:30 63 18 119/62 (81) 99 04/13/20 22:00 62 18 117/61 (79) 100 04/13/20 22:00 18 119/62 Mechanical Ventilator 90 04/13/20 22:00 18 Mechanical Ventilator 100 04/13/20 21:50 18 117/61 Mechanical Ventilator 100 04/13/20 21:50 18 Mechanical Ventilator 100 04/13/20 21:30 61 18 112/60 (77) 99 04/13/20 21:10 61 18 100 04/13/20 21:00 62 18 110/61 (77) 98 04/13/20 20:30 63 18 108/59 (75) 98 04/13/20 20:00 Mechanical Ventilator 04/13/20 20:00 100 04/13/20 20:00 78 04/13/20 20:00 98.0 65 18 108/58 (75) 98 04/13/20 19:30 71 18 112/61 (78) 97 04/13/20 19:10 68 18 100 04/13/20 19:00 77 18 118/68 (85) 98 04/13/20 19:00 18 118/68 Mechanical Ventilator 100 04/13/20 19:00 18 Mechanical Ventilator 100 04/13/20 18:30 86 18 131/64 (86) 98 04/13/20 18:10 18 138/64 Mechanical Ventilator 100 04/13/20 18:00 18 138/64 Mechanical Ventilator 100 04/13/20 18:00 18 Mechanical Ventilator 100 04/13/20 18:00 85 18 138/64 (88) 99 04/13/20 17:30 61 18 101/52 (68) 99 04/13/20 17:00 18 101/52 Mechanical Ventilator 100 04/13/20 17:00 18 Mechanical Ventilator 100 04/13/20 17:00 61 18 103/58 (73) 100 04/13/20 16:45 18 Mechanical Ventilator 100 04/13/20 16:00 61 04/13/20 16:00 Mechanical Ventilator 04/13/20 16:00 18 100/59 Mechanical Ventilator 100 04/13/20 16:00 18 Mechanical Ventilator 100 04/13/20 16:00 100 04/13/20 16:00 98.9 61 18 100/59 (73) 100 04/13/20 15:30 59 18 102/56 (71) 100 04/13/20 15:15 61 18 100 04/13/20 15:00 18 102/56 Mechanical Ventilator 100 04/13/20 15:00 18 Mechanical Ventilator 100 04/13/20 15:00 60 18 98/54 (69) 100 04/13/20 14:00 60 18 105/57 (73) 100 04/13/20 14:00 18 105/57 Mechanical Ventilator 100 04/13/20 14:00 18 Mechanical Ventilator 100 04/13/20 13:00 61 18 101/57 (72) 100 04/13/20 13:00 18 101/57 Mechanical Ventilator 100 04/13/20 13:00 18 Mechanical Ventilator 100 04/13/20 12:00 Mechanical Ventilator 04/13/20 12:00 99.0 64 18 103/56 (72) 100 04/13/20 12:00 18 103/56 Mechanical Ventilator 100 04/13/20 12:00 18 Mechanical Ventilator 100 04/13/20 12:00 62 04/13/20 12:00 100 04/13/20 11:50 18 Mechanical Ventilator 100 04/13/20 11:17 67 18 100 04/13/20 11:00 64 18 111/61 (78) 100 04/13/20 11:00 18 111/61 Mechanical Ventilator 100 04/13/20 11:00 18 Mechanical Ventilator 100 04/13/20 10:15 18 107/60 Mechanical Ventilator 100 04/13/20 10:00 18 107/60 Mechanical Ventilator 100 04/13/20 10:00 18 Mechanical Ventilator 100 04/13/20 10:00 68 18 107/60 (76) 99 04/13/20 09:30 70 18 113/62 (79) 100 04/13/20 09:00 18 111/62 Mechanical Ventilator 100 04/13/20 09:00 18 Mechanical Ventilator 100 04/13/20 09:00 71 18 111/62 (78) 100 04/13/20 08:00 100 04/13/20 08:00 Mechanical Ventilator 04/13/20 08:00 98.8 68 18 107/60 (76) 100 04/13/20 08:00 68 04/13/20 08:00 18 107/60 Mechanical Ventilator 100 04/13/20 08:00 18 Mechanical Ventilator 100 04/13/20 07:00 70 18 113/62 (79) 100 04/13/20 07:00 18 Mechanical Ventilator 100 04/13/20 07:00 69 17 100 04/13/20 06:55 18 Mechanical Ventilator 100 04/13/20 06:00 18 112/63 Mechanical Ventilator 100 04/13/20 06:00 18 Mechanical Ventilator 40 04/13/20 06:00 76 18 112/63 (79) 100 Intake and Output 04/13/20 04/14/20 19:00 07:00 Intake Total 2432.500 ml 736.67 ml Output Total 2390 ml 690 ml Balance 42.500 ml 46.67 ml IV Total 1592.500 ml 286.67 ml Tube Feeding 600 ml 450 ml Other 240 ml Output Urine Total 2390 ml 690 ml Laboratory Tests 04/14/20 03:16: White Blood Count 5.5, Red Blood Count 3.37L, Hemoglobin 9.4L, Hematocrit 30.9L, Mean Corpuscular Volume 92, Mean Corpuscular Hemoglobin 28.0, Mean Corpuscular Hemoglobin Concent 30.5L, Red Cell Distribution Width 17.9H, Platelet Count 198, Mean Platelet Volume 7.5, Neutrophils (%) (Auto) , Lymphocytes (%) (Auto) , Monocytes (%) (Auto) , Eosinophils (%) (Auto) , Basophils (%) (Auto) , N eutrophils % (Manual) [Pending], Lymphocytes % (Manual) [Pending], Platelet Estimate [Pending], Platelet Morphology [Pending], Sodium Level 142, Potassium Level 4.6, Chloride Level 106, Carbon Dioxide Level 34H, Anion Gap 2L, Blood Urea Nitrogen 19H, Creatinine 0.5L, Estimat Glomerular Filtration Rate > 60, Glucose Level 142H, Calcium Level 8.0L, Total Bilirubin 0.6, Aspartate Amino Transf (AST/SGOT) 34, Alanine Aminotransferase (ALT/SGPT) 201H, Alkaline Phosphatase 309H, Total Protein 4.9L, Albumin 1.7L, Globulin 3.2, Albumin/Globulin Ratio 0.5L Height (Feet): 5 Height (Inches): 10.00 Weight (Pounds): 240 General Appearance: no apparent distress EENT: normal ENT inspection Neck: supple Cardiovascular: normal rate Respiratory/Chest: decreased breath sounds Abdomen: hypoactive bowel sounds Extremities: non-tender Assessment/Plan Status: not improved, unchanged Assessment/Plan: hep c + but neg RNA OGTF reglan 10 mg repeat labs fu LFTS>>>improving will Da Wilson MD Apr 14, 2020 05:52
[2020-04-14] MEDS: NovoLOG Insulin Flexpen SUBQ SCH ×3 (06:08→18:00)
--- NOTE | 2020-04-14 06:59 | NUR ---
CASE MANAGEMENT:REVIEW 04/14/20 SI: COVID PNEUMONIA~INTUBATED 99.0 61 18 106/59 99% ON VENT SUPPORT W/90% FIO2 PEEP~5.0 H/H-9.4/30.9 CO2+34 CA-8.0 AST/ALT+201/309 ALB-1.7 IS: IV LASIX QD FENTANYL GTT VERSED GTT IV MICAFUNGIN Q24 IV VANCOMYCIN Q8HRS NORVASC NG Q12 IVF@30/HR LOVENOX SQ Q12 IV PROTONIX Q12 IV SOLUMEDROL 20MG Q12HRS BACTRIM NG Q24 IV REGLAN Q6HRS : ICU STATUS PLAN: NON VIOLENT RESTRAINTS WEAN TOLERATED
--- NOTE | 2020-04-14 07:17 | NUR ---
NURSE HAND-OFF REPORT: Latest Vital Signs: Temperature 99.0 , Pulse 60 , B/P 104 /57 , Respiratory Rate 18 , O2 SAT 99 , Mechanical Ventilator, O2 Flow Rate . Vital Sign Comment: stable EKG Rhythm: Sinus Rhythm Rhythm change?: N Notified?: Courtney Paige MD Response: Message left await call Latest Hassan Fall Score: 50 Fall Risk: High Risk Safety Measures: Call light Within Reach, Bed Alarm Zone 3, Side Rails Side Rails x3, Bed position Low and Locked. Fall Precautions: Yellow Socks Yellow Gown Door Sign Patient Fall Education Report given to PRIYANKA Ellis.
--- NOTE | 2020-04-14 07:20 | NUR ---
NURSE NOTES: Received report from PRIYANKA Espinosa. Patient is sedated w/ RASS -2. ETT 8/25cm at lip line with vent setting ac 18, vt 750, peep 5 and fio2 90%. O2 sat 98% on the monitor. OGT intact and running with glucerna 1.5 @ 50ml/hr. Rectal tube intact and noted with small brown liquid stool. Brownlee intact and draining with jeff color urine. Right upper arm PICC intact, clean and running with fentanyl 300mcg/hr and versed 20mg/hr to meet RASS -2. Right wrist soft band restraints on. Skin intact and clean on restraints site. Kept dry, clean and comfortable. Will continue plan of care.
--- NOTE | 2020-04-14 07:25 | NUR ---
RESPIRATORY NOTE: PT received on AC/VC: 18, 750 90%, +5. Alarms are on and audible. Vent circuit is secure and out of the way. Airway is secure and patent. No s/s of respiratory distress noted at this time. Will continue to closely monitor.
[2020-04-14] MEDS: Solu-MEDROL 40mg Inj IVP SCH ×2 (08:35→20:48)
[2020-04-14] MEDS: Pantoprazole Inj IVP SCH ×2 (08:35→20:48)
[2020-04-14] MEDS: Enoxaparin 80mg Inj SUBQ SCH ×2 (08:36→20:49)
--- NOTE | 2020-04-14 09:00 | NUR ---
RESPIRATORY NOTE: ABG drawn at this time. Results reported to PRIYANKA HILLIARD.
--- NOTE | 2020-04-14 10:20 | NUR ---
NURSE NOTES: Seen by Dr. Mata and assessed patient. Updated patient's status and labs. Ordered c-diff. Will collect.
--- NOTE | 2020-04-14 10:34 | Pulmonology Progress Note ---
Subjective ROS Limited/Unobtainable: No Interval Events: Intubated 03/28/20 Constitutional: Reports: fever - low grade temperature HEENT: Repors: no symptoms Respiratory: Reports: dry cough, shortness of breath Cardiovascular: Reports: no symptoms Gastrointestinal/Abdominal: Denies: nausea, vomiting, diarrhea Psychiatric: Reports: other - NA Skin: Denies: rash Musculoskeletal: Reports: other - NA Allergies: Coded Allergies: No Known Allergies (Unverified , 02/05/20) Objective Last 24 Hour Vital Signs Date Time Temp Pulse Resp B/P (MAP) Pulse Ox O2 Delivery O2 Flow Rate FiO2 04/14/20 10:00 18 Mechanical Ventilator 90 04/14/20 10:00 18 110/58 Mechanical Ventilator 90 04/14/20 09:00 18 Mechanical Ventilator 90 04/14/20 09:00 18 130/66 Mechanical Ventilator 90 04/14/20 08:37 18 Mechanical Ventilator 90 04/14/20 08:30 69 18 120/60 (80) 98 04/14/20 08:00 18 122/64 Mechanical Ventilator 90 04/14/20 08:00 90 04/14/20 08:00 97.8 66 18 122/64 (83) 98 04/14/20 08:00 Mechanical Ventilator 04/14/20 07:30 61 18 130/75 (93) 100 04/14/20 07:00 59 18 102/61 (75) 99 04/14/20 07:00 18 102/61 Mechanical Ventilator 90 04/14/20 07:00 18 Mechanical Ventilator 90 04/14/20 07:00 18 102/61 Mechanical Ventilator 90 04/14/20 06:30 60 18 104/57 (73) 99 04/14/20 06:00 61 18 106/59 (75) 99 04/14/20 06:00 18 106/59 Mechanical Ventilator 90 04/14/20 06:00 18 Mechanical Ventilator 90 04/14/20 05:30 61 18 101/56 (71) 98 04/14/20 05:00 18 101/56 Mechanical Ventilator 90 04/14/20 05:00 18 Mechanical Ventilator 90 04/14/20 05:00 64 18 104/57 (73) 98 04/14/20 04:39 79 18 90 04/14/20 04:30 66 18 110/59 (76) 98 04/14/20 04:00 90 04/14/20 04:00 78 04/14/20 04:00 18 110/59 Mechanical Ventilator 90 04/14/20 04:00 18 Mechanical Ventilator 90 04/14/20 04:00 99.0 68 18 120/62 (81) 97 04/14/20 04:00 Mechanical Ventilator 04/14/20 03:30 76 18 133/72 (92) 95 04/14/20 03:17 82 18 90 04/14/20 03:00 18 133/72 Mechanical Ventilator 90 04/14/20 03:00 18 Mechanical Ventilator 90 04/14/20 03:00 89 24 157/85 (109) 83 04/14/20 02:30 62 18 110/60 (77) 98 04/14/20 02:22 18 113/57 Endotracheal Tube 80 04/14/20 02:21 17 Mechanical Ventilator 90 04/14/20 02:00 68 18 113/57 (75) 98 04/14/20 02:00 18 133/72 Mechanical Ventilator 90 04/14/20 02:00 18 Mechanical Ventilator 90 04/14/20 01:30 67 18 113/59 (77) 98 04/14/20 01:00 68 18 116/60 (78) 97 04/14/20 01:00 18 113/59 Mechanical Ventilator 90 04/14/20 01:00 18 Mechanical Ventilator 90 04/14/20 00:43 65 18 90 04/14/20 00:30 71 18 115/59 (77) 95 04/14/20 00:00 90 04/14/20 00:00 78 04/14/20 00:00 18 115/59 Mechanical Ventilator 90 04/14/20 00:00 18 Mechanical Ventilator 90 04/14/20 00:00 Mechanical Ventilator 04/14/20 00:00 98.9 67 18 113/55 (74) 95 04/13/20 23:30 65 18 116/57 (76) 96 04/13/20 23:10 67 18 90 04/13/20 23:00 64 18 110/60 (77) 98 04/13/20 23:00 18 116/57 Mechanical Ventilator 90 04/13/20 23:00 18 Mechanical Ventilator 90 04/13/20 22:30 63 18 119/62 (81) 99 04/13/20 22:00 62 18 117/61 (79) 100 04/13/20 22:00 18 119/62 Mechanical Ventilator 90 04/13/20 22:00 18 Mechanical Ventilator 100 04/13/20 21:50 18 117/61 Mechanical Ventilator 100 04/13/20 21:50 18 Mechanical Ventilator 100 04/13/20 21:30 61 18 112/60 (77) 99 04/13/20 21:10 61 18 100 04/13/20 21:00 62 18 110/61 (77) 98 04/13/20 20:30 63 18 108/59 (75) 98 04/13/20 20:00 Mechanical Ventilator 04/13/20 20:00 100 04/13/20 20:00 78 04/13/20 20:00 98.0 65 18 108/58 (75) 98 04/13/20 19:30 71 18 112/61 (78) 97 04/13/20 19:10 68 18 100 04/13/20 19:00 77 18 118/68 (85) 98 04/13/20 19:00 18 118/68 Mechanical Ventilator 100 04/13/20 19:00 18 Mechanical Ventilator 100 04/13/20 18:30 86 18 131/64 (86) 98 04/13/20 18:10 18 138/64 Mechanical Ventilator 100 04/13/20 18:00 18 138/64 Mechanical Ventilator 100 04/13/20 18:00 18 Mechanical Ventilator 100 04/13/20 18:00 85 18 138/64 (88) 99 04/13/20 17:30 61 18 101/52 (68) 99 04/13/20 17:00 18 101/52 Mechanical Ventilator 100 04/13/20 17:00 18 Mechanical Ventilator 100 04/13/20 17:00 61 18 103/58 (73) 100 04/13/20 16:45 18 Mechanical Ventilator 100 04/13/20 16:00 61 04/13/20 16:00 Mechanical Ventilator 04/13/20 16:00 18 100/59 Mechanical Ventilator 100 04/13/20 16:00 18 Mechanical Ventilator 100 04/13/20 16:00 100 04/13/20 16:00 98.9 61 18 100/59 (73) 100 04/13/20 15:30 59 18 102/56 (71) 100 04/13/20 15:15 61 18 100 04/13/20 15:00 18 102/56 Mechanical Ventilator 100 04/13/20 15:00 18 Mechanical Ventilator 100 04/13/20 15:00 60 18 98/54 (69) 100 04/13/20 14:00 60 18 105/57 (73) 100 04/13/20 14:00 18 105/57 Mechanical Ventilator 100 04/13/20 14:00 18 Mechanical Ventilator 100 04/13/20 13:00 61 18 101/57 (72) 100 04/13/20 13:00 18 101/57 Mechanical Ventilator 100 04/13/20 13:00 18 Mechanical Ventilator 100 04/13/20 12:00 Mechanical Ventilator 04/13/20 12:00 99.0 64 18 103/56 (72) 100 04/13/20 12:00 18 103/56 Mechanical Ventilator 100 04/13/20 12:00 18 Mechanical Ventilator 100 04/13/20 12:00 62 04/13/20 12:00 100 04/13/20 11:50 18 Mechanical Ventilator 100 04/13/20 11:17 67 18 100 04/13/20 11:00 64 18 111/61 (78) 100 04/13/20 11:00 18 111/61 Mechanical Ventilator 100 04/13/20 11:00 18 Mechanical Ventilator 100 Intake and Output 04/13/20 04/14/20 19:00 07:00 Intake Total 2432.500 ml 1345.67 ml Output Total 2390 ml 1045 ml Balance 42.500 ml 300.67 ml IV Total 1592.500 ml 745.67 ml Tube Feeding 600 ml 600 ml Other 240 ml Output Urine Total 2390 ml 1045 ml General Appearance: WD/WN, no acute distress HEENT: normocephalic, atraumatic Respiratory: chest wall non-tender Cardiovascular: normal rate, regular rhythm Abdomen: normal bowel sounds, soft, non tender, other - obese Microbiology Date/Time Source Procedure Growth Status 04/12/20 08:40 Urine,Clean Catch Urine Culture - Preliminary NO GROWTH Resulted 04/12/20 08:40 Sputum Gram Stain - Final Complete 04/12/20 08:40 Sputum Sputum Culture - Final NORMAL UPPER RESPIRATORY WILIAM AT 48 ... Complete 04/11/20 18:55 Blood Blood Culture - Preliminary NO GROWTH AFTER 24 HOURS Resulted 04/11/20 18:40 Blood Blood Culture - Preliminary NO GROWTH AFTER 24 HOURS Resulted Laboratory Tests 04/14/20 03:16: White Blood Count 5.5, Red Blood Count 3.37L, Hemoglobin 9.4L, Hematocrit 30.9L, Mean Corpuscular Volume 92, Mean Corpuscular Hemoglobin 28.0, Mean Corpuscular Hemoglobin Concent 30.5L, Red Cell Distribution Width 17.9H, Platelet Count 198, Mean Platelet Volume 7.5, Neutrophils (%) (Auto) , Lymphocytes (%) (Auto) , Monocytes (%) (Auto) , Eosinophils (%) (Auto) , Basophils (%) (Auto) , Differential Total Cells Counted 100, Neutrophils % (Manual) 81H, Lymphocytes % (Manual) 13L, Monocytes % (Manual) 3, Eosinophils % (Manual) 0, Basophils % (Manual) 0, Band Neutrophils 3, Nucleated Red Blood Cells 1, Platelet Estimate Adequate, Platelet Morphology Normal, Hypochromasia 1+, Anisocytosis 1+, Sodium Level 142, Potassium Level 4.6, Chloride Level 106, Carbon Dioxide Level 34H, Anion Gap 2L, Blood Urea Nitrogen 19H, Creatinine 0.5L, Estimat Glomerular Filtration Rate > 60, Glucose Level 142H, Calcium Level 8.0L, Total Bilirubin 0.6, Aspartate Amino Transf (AST/SGOT) 34, Alanine Aminotransferase (ALT/SGPT) 201H, Alkaline Phosphatase 309H, Total Protein 4.9L, Albumin 1.7L, Globulin 3.2, Albumin/Globulin Ratio 0.5L 04/14/20 09:00: Arterial Blood pH 7.429, Arterial Blood Partial Pressure CO2 55.4*H, Arterial Blood Partial Pressure O2 69.2L, Arterial Blood HCO3 35.9H, Arterial Blood Oxygen Saturation 92.9L, Arterial Blood Base Excess 10.1*H, Shemar Test Positive Current Medications Medications (Trade) Dose Ordered Sig/Dennis Route PRN Reason Start Time Stop Time Status Last Admin Dose Admin Acetaminophen (Tylenol) 650 mg Q4H PRN ORAL Temp >100.5 04/13/20 00:30 05/13/20 00:29 04/13/20 01:30 Bisacodyl (Dulcolax) 10 mg Q12H PRN RECTAL Constipation 03/18/20 16:45 06/16/20 16:44 Chlorhexidine Gluconate (Marlen-Hex 2%) 1 applic DAILY@1999 TOPIC 03/30/20 20:00 06/28/20 19:59 04/13/20 20:32 Dextrose (Dextrose 50%) 25 ml Q30M PRN IV Hypoglycemia 03/29/20 20:45 06/27/20 20:44 Dextrose (Dextrose 50%) 50 ml Q30M PRN IV Hypoglycemia 03/29/20 20:45 06/27/20 20:44 Enoxaparin Sodium (Lovenox) 80 mg EVERY 12 HOURS SUBQ 04/06/20 21:00 07/05/20 20:59 04/14/20 08:36 Fentanyl Citrate 250 ml @ 1 mls/hr Q24H IV 04/14/20 00:15 04/16/20 00:14 04/13/20 21:50 Furosemide (Lasix) 20 mg DAILY IV 04/12/20 11:00 05/12/20 10:59 04/14/20 08:34 Hydralazine HCl (Apresoline) 10 mg Q4H PRN IV For High Blood Pressure 03/30/20 12:15 06/28/20 12:14 04/03/20 21:00 Insulin Aspart (NovoLOG) Q6HR SUBQ 03/30/20 00:00 06/28/20 00:00 04/14/20 06:08 Labetalol HCl (Normodyne) 10 mg Q4H PRN IV sbp greater tahtn 160 03/28/20 17:30 04/27/20 17:29 Methylprednisolone Sodium Succinate (Solu-MEDROL) 20 mg Q12HR IVP 04/12/20 21:00 06/20/20 20:59 04/14/20 08:35 Metoclopramide HCl (Reglan) 10 mg Q6H IVP 03/30/20 15:00 04/29/20 14:59 04/14/20 08:35 Micafungin Sodium 100 mg/Sodium Chloride 100 ml @ 100 mls/hr Q24H IVPB 04/09/20 15:00 04/22/20 23:59 04/13/20 16:14 Midazolam HCl 100 mg/Sodium Chloride 200 ml @ 0 mls/hr Q24H PRN IV To Patient Comfort 04/13/20 21:00 04/15/20 20:59 04/14/20 08:37 Pantoprazole (Protonix) 40 mg EVERY 12 HOURS IVP 04/01/20 21:00 05/01/20 20:59 04/14/20 08:35 Piperacillin Sod/ Tazobactam Sod 3.375 gm/Dextrose 100 ml @ 25 mls/hr EVERY 8 HOURS IVPB 04/11/20 22:00 04/16/20 21:59 04/14/20 05:52 Trimethoprim/ Sulfamethoxazole (Bactrim-DS) 1 tab Q24H ORAL 03/29/20 17:00 05/10/20 16:59 04/13/20 16:15 Vancomycin HCl (Vanco pharmacy to dose) 1 ea DAILY PRN MISC Per rx protocol 04/11/20 17:30 05/11/20 17:29 Vancomycin HCl 1 gm/Sodium Chloride 275 ml @ 183.708 mls/hr Q8H IVPB 04/12/20 18:30 04/17/20 18:29 04/14/20 02:20 Assessment/Plan Assessment/Plan Assessment/Plan 1.COVID-19 pneumonia. - Completed specific therapies - On solumedrol 2. DVT ppx - on lovenox 3. Hypertension - no longer on meds - Not requiring pressors 4. Leukocytosis; - ID following - On abx - Budding yeast on blood CS 5. Elevated LFT - positive Hep C; treated in the past with IF 6. Respiratory failure -Intubated 03/28/20 -Family aware - Prognosis guarded - Vt 750; rate 18 -On sedation 7. Discussed with cardiology -No evidence for cardiac dysfunction or PE -tachycardic; will increase sedation 8. AMS -back on sedation - has apparent left arm paresis - Will consider CT brain when more stable S/p new PICC line On abx Slowly improving oxygenation Noted left upper extremity swelling. Has DVT; on full dose Lovenox Continue sedation, DC propofol given high triglycerides. Continue fentanyl and Versed. Saturations plummeted 04/12/20 when patient became agitated Now fully sedated on 90% FiO2 ; PEEP 5 Intubated now for 2 weeks Will discuss tracheostomy with surgery John Mata MD Apr 14, 2020 10:34
[2020-04-14 11:11] LABS: PHOSPHORUS 3.2 MG/DL (2.5-4.9)
--- NOTE | 2020-04-14 12:02 | NUR ---
NURSE NOTES: ETT care given. Kept dry, clean and comfortable.
--- NOTE | 2020-04-14 12:29 | Infectious Diseases Prog Note ---
Assessment/Plan Assessment/Plan ASSESSMENT AND PLAN: 1. staph aureus bacteremia/mssa, ? source, ? endocarditis, sepsis, leukocytosis, ? CAP, PJP less likely with HIV negative and steroids < 1 month covid-19 +, hypoxia, sob, chest x-ray worse, ? PE, ? HCAP/aspiration pna recurrent fevers - ? fungal, ? OI leukocytosis noted - ? new infection, ? steroids cocci serology negative, legionella negative, beta 1,3 D-glucan wnl, Il-16 - 13.7 elevated LFT's - ? TPN, ? Bactrim - US without gallbladder disease, + steatosis - d/w GI - TPN more likely than bactrim as etiology e.coli uti - s/p treatment with rocephin, s/p treatment for presumptive pneumocystis pna + yeast in blood, fungemia, ? line infection, line changed worsening respiratory status, ? new aspiration pna/hcap, ? sepsis - zosyn and vancomycin, surveillance cultures negative to date - micafungin - day # 12/14 (post negative blood cultures - 04/02/20) - on solumedrol - picc line changed - bactrim for pneumocystis prophylaxis, s/p pneumocystis treatment - s/p tx for mssa bacteremia and ? endocarditis - monitor hypoxia, labs and chest x-ray - guarded condition 2. covid-19 isolation 3. Hypertension history. Blood pressure treatment primary care team. 4. Elevated blood sugars. Blood sugar treatment per primary care team. 5. No known drug allergies. 6. Social history is positive for smoking. 7. Family history is noncontributory. 8. MAR was noted. 9. Case was discussed with RN. 10. Continue treatment per primary consultants. Subjective Constitutional: Reports: other - no pressors ; Denies: fever HEENT: Reports: congestion Respiratory: Reports: shortness of breath Cardiovascular: Reports: other - no pressors Gastrointestinal/Abdominal: Denies: nausea, vomiting, diarrhea Genitourinary: Reports: other - + joseph Allergies: Coded Allergies: No Known Allergies (Unverified , 02/05/20) Objective Last 24 Hour Vital Signs Date Time Temp Pulse Resp B/P (MAP) Pulse Ox O2 Delivery O2 Flow Rate FiO2 04/14/20 12:00 Mechanical Ventilator 04/14/20 12:00 90 04/14/20 10:33 18 107/59 Mechanical Ventilator 90 04/14/20 10:00 18 Mechanical Ventilator 90 04/14/20 10:00 18 110/58 Mechanical Ventilator 90 04/14/20 09:00 18 Mechanical Ventilator 90 04/14/20 09:00 18 130/66 Mechanical Ventilator 90 04/14/20 08:37 18 Mechanical Ventilator 90 04/14/20 08:30 69 18 120/60 (80) 98 04/14/20 08:00 18 122/64 Mechanical Ventilator 90 04/14/20 08:00 90 04/14/20 08:00 97.8 66 18 122/64 (83) 98 04/14/20 08:00 Mechanical Ventilator 04/14/20 07:30 61 18 130/75 (93) 100 04/14/20 07:00 59 18 102/61 (75) 99 04/14/20 07:00 18 102/61 Mechanical Ventilator 90 04/14/20 07:00 18 Mechanical Ventilator 90 04/14/20 07:00 18 102/61 Mechanical Ventilator 90 04/14/20 06:30 60 18 104/57 (73) 99 04/14/20 06:00 61 18 106/59 (75) 99 04/14/20 06:00 18 106/59 Mechanical Ventilator 90 04/14/20 06:00 18 Mechanical Ventilator 90 04/14/20 05:30 61 18 101/56 (71) 98 04/14/20 05:00 18 101/56 Mechanical Ventilator 90 04/14/20 05:00 18 Mechanical Ventilator 90 04/14/20 05:00 64 18 104/57 (73) 98 04/14/20 04:39 79 18 90 04/14/20 04:30 66 18 110/59 (76) 98 04/14/20 04:00 90 04/14/20 04:00 78 04/14/20 04:00 18 110/59 Mechanical Ventilator 90 04/14/20 04:00 18 Mechanical Ventilator 90 04/14/20 04:00 99.0 68 18 120/62 (81) 97 04/14/20 04:00 Mechanical Ventilator 04/14/20 03:30 76 18 133/72 (92) 95 04/14/20 03:17 82 18 90 04/14/20 03:00 18 133/72 Mechanical Ventilator 90 04/14/20 03:00 18 Mechanical Ventilator 90 04/14/20 03:00 89 24 157/85 (109) 83 04/14/20 02:30 62 18 110/60 (77) 98 04/14/20 02:22 18 113/57 Endotracheal Tube 80 04/14/20 02:21 17 Mechanical Ventilator 90 04/14/20 02:00 68 18 113/57 (75) 98 04/14/20 02:00 18 133/72 Mechanical Ventilator 90 04/14/20 02:00 18 Mechanical Ventilator 90 04/14/20 01:30 67 18 113/59 (77) 98 04/14/20 01:00 68 18 116/60 (78) 97 04/14/20 01:00 18 113/59 Mechanical Ventilator 90 04/14/20 01:00 18 Mechanical Ventilator 90 04/14/20 00:43 65 18 90 04/14/20 00:30 71 18 115/59 (77) 95 04/14/20 00:00 90 04/14/20 00:00 78 04/14/20 00:00 18 115/59 Mechanical Ventilator 90 04/14/20 00:00 18 Mechanical Ventilator 90 04/14/20 00:00 Mechanical Ventilator 04/14/20 00:00 98.9 67 18 113/55 (74) 95 04/13/20 23:30 65 18 116/57 (76) 96 04/13/20 23:10 67 18 90 04/13/20 23:00 64 18 110/60 (77) 98 04/13/20 23:00 18 116/57 Mechanical Ventilator 90 04/13/20 23:00 18 Mechanical Ventilator 90 04/13/20 22:30 63 18 119/62 (81) 99 04/13/20 22:00 62 18 117/61 (79) 100 04/13/20 22:00 18 119/62 Mechanical Ventilator 90 04/13/20 22:00 18 Mechanical Ventilator 100 04/13/20 21:50 18 117/61 Mechanical Ventilator 100 04/13/20 21:50 18 Mechanical Ventilator 100 04/13/20 21:30 61 18 112/60 (77) 99 04/13/20 21:10 61 18 100 04/13/20 21:00 62 18 110/61 (77) 98 04/13/20 20:30 63 18 108/59 (75) 98 04/13/20 20:00 Mechanical Ventilator 04/13/20 20:00 100 04/13/20 20:00 78 04/13/20 20:00 98.0 65 18 108/58 (75) 98 04/13/20 19:30 71 18 112/61 (78) 97 04/13/20 19:10 68 18 100 04/13/20 19:00 77 18 118/68 (85) 98 04/13/20 19:00 18 118/68 Mechanical Ventilator 100 04/13/20 19:00 18 Mechanical Ventilator 100 04/13/20 18:30 86 18 131/64 (86) 98 04/13/20 18:10 18 138/64 Mechanical Ventilator 100 04/13/20 18:00 18 138/64 Mechanical Ventilator 100 04/13/20 18:00 18 Mechanical Ventilator 100 04/13/20 18:00 85 18 138/64 (88) 99 04/13/20 17:30 61 18 101/52 (68) 99 04/13/20 17:00 18 101/52 Mechanical Ventilator 100 04/13/20 17:00 18 Mechanical Ventilator 100 04/13/20 17:00 61 18 103/58 (73) 100 04/13/20 16:45 18 Mechanical Ventilator 100 04/13/20 16:00 61 04/13/20 16:00 Mechanical Ventilator 04/13/20 16:00 18 100/59 Mechanical Ventilator 100 04/13/20 16:00 18 Mechanical Ventilator 100 04/13/20 16:00 100 04/13/20 16:00 98.9 61 18 100/59 (73) 100 04/13/20 15:30 59 18 102/56 (71) 100 04/13/20 15:15 61 18 100 04/13/20 15:00 18 102/56 Mechanical Ventilator 100 04/13/20 15:00 18 Mechanical Ventilator 100 04/13/20 15:00 60 18 98/54 (69) 100 04/13/20 14:00 60 18 105/57 (73) 100 04/13/20 14:00 18 105/57 Mechanical Ventilator 100 04/13/20 14:00 18 Mechanical Ventilator 100 04/13/20 13:00 61 18 101/57 (72) 100 04/13/20 13:00 18 101/57 Mechanical Ventilator 100 04/13/20 13:00 18 Mechanical Ventilator 100 Height (Feet): 5 Height (Inches): 10.00 Weight (Pounds): 240 HEENT: normocephalic, atraumatic, anicteric Respiratory/Chest: crackles/rales, rhonchi - bilaterally Cardiovascular: normal rate, regular rhythm Abdomen: normal bowel sounds, soft, non tender, no organomegaly, non distended Genitourinary: other - + joseph CT chest: IMPRESSION: There are mild subpleural ground-glass and consolidating infiltrates in the dependent portions of both lower lobes and to lesser degree the upper lobes consistent with bilateral pneumonia. The infiltrates are typical for Covid 19. No evidence of pulmonary embolus. CT abdomen and pelvis: IMPRESSION: 1. Scattered hepatic hypodense lesions, too small to characterize on this examination without intravenous contrast. 2. Colonic diverticulosis without evidence of acute diverticulitis. 3. Scattered enlarged mesenteric lymph nodes, presumably reactive. teral pneumonia. The infiltrates are typical for Covid 19. No evidence of pulmonary embolus. Chest x-ray - 12/19/19 - Indication: Shortness of breath Technique: One view of the chest Comparison: 02/17/2020 Findings: Interim worsening of bilateral infiltrates, particularly on the right. The heart is borderline enlarged. The pleural spaces are clear. Left arm PICC is again demonstrated Impression: Worsening bilateral infiltrates over one day, likely pneumonia CT chest - 02/19/20 - IMPRESSION: Increased extensive patchy ground-glass opacities and densities throughout the lungs, suggestive of Covid 19 infection. Chest x-ray 02/23/20 - Procedure: XRAY Chest 1v As Indication: Reason For Exam: INFECT Technique: One view of the chest Comparison: 02/20/2020 Findings: Allowing for differences in exposure technique, bilateral mid and lower lung infiltrates are probably unchanged. The heart size is normal. The pleural spaces are clear. Impression: Unchanged, over 4 days, findings as above. Chest x-ray - 02/25/20 - FINDINGS: Lungs: Interval slightly worsening bilateral airspace disease. Pleural space: Unremarkable. No pneumothorax. Heart: Unremarkable. No cardiomegaly. Mediastinum: Unremarkable. Bones/joints: Unremarkable. IMPRESSION: Interval slightly worsening bilateral airspace disease. Chest x-ray - 03/02/20 - Procedure: XRAY Chest 1v Indication: Shortness of breath Technique: One view of the chest Comparison: 02/25/2020 Findings: Bilateral interstitial and airspace infiltrates are unchanged. The heart size is normal. Left arm PICC is again demonstrated Impression: Unchanged, over one day, findings as above. Chest x-ray - 03/06/20 - Procedure: XRAY Chest 1v Indication: Shortness of breath Technique: One view of the chest Comparison: 03/02/2020 Findings: Bilateral infiltrates are unchanged. Normal heart size. Pleural spaces are clear Chest x-ray - 03/12/10 - Impression: COMPARISON: Chest radiograph March 06, 2020. FINDINGS/IMPRESSION: Improving basilar infiltrates. Follow chest radiograph recommended. The upper lung finley are clear. No pneumothorax. Stable cardiomegaly. Stable left upper extremity PICC line. anged, over 4 days, findings as above. Chest x-ray - 03/17/20 - Procedure: XRAY Chest 1v Indication: Shortness of breath Technique: One view of the chest Comparison: 03/12/2020 Findings: Left arm PICC is again demonstrated. Infiltrates are unchanged. The heart size is upper limits of normal. Impression: Unchanged, over 5 days, findings as above. Abdominal US - IMPRESSION: 1. Gallbladder is normal. 2. Hepatic steatosis. 3. 1.7 cm cyst right kidney. Impression. Chest x-ray - Procedure: XRAY Chest 1v Indication: Shortness of breath Technique: One view of the chest Comparison: 03/17/2020 Findings: Bilateral right greater than left infiltrates again demonstrated. The heart size is normal. There is a left arm PICC in good position. Impression: Unchanged, over 5 days, findings as above. Chest x-ray - 03/29/20 - Procedure: XRAY Chest 1v Indication: Cough Technique: One view of the chest Comparison: 03/28/2020 Findings: Bilateral infiltrates are unchanged or slightly worse, allowing for differences in exposure technique. The pleural spaces are clear. The heart size is normal. Stable satisfactory position of endotracheal tube, left arm PICC. Orogastric tube has retracted somewhat the position remains satisfactory. Impression: Stable to slightly worse bilateral infiltrates. Otherwise little mash filter cloth changer one day Chest x-ray - 03/31/20 - Procedure: XRAY Chest 1v Indication: Post endotracheal tube repositioning Technique: One view of the chest Comparison: 3 hours earlier Findings: Interim advancement of endotracheal tube, tip projecting approximately 5 cm above the sunny. Interim advancement of orogastric tube as well. Bilateral infiltrates are unchanged. Left arm PICC remains Impression: Improved and now satisfactory tube positions as described. ICU nurse Maeve notified at the time of interpretation Chest x-ray - 04/02/20 - COMPARISON: Chest x-rays dated 03/31/20 and 03/12/20. FINDINGS: Lungs: No significant change in bilateral prominent interstitial markings. The lungs are otherwise clear without focal consolidation. Pleural space: Unremarkable. The costophrenic angles are sharp. No visible pneumothorax. Heart: Unremarkable. No cardiomegaly. Mediastinum: Unremarkable. Bones/joints: Unremarkable. Tubes, lines and devices: Endotracheal tube tip 6.5 cm above the sunny. NG tube tip in the distal stomach. Telemetry leads overlie the thorax. IMPRESSION: No significant change in bilateral prominent interstitial markings. Procedure: XRAY Chest 1v Procedure: XRAY Chest 1v Reason for study: Shortness of breath 04/06/20 - Comparison films: 04/02/2020. FINDINGS: Endotracheal tube and NG tube remain in place. There is worsening of right basilar infiltrates. Some haziness in left lung base unchanged. Cardiac and mediastinal silhouette are within normal limits. CP angles are sharp. The bony thorax appear unremarkable. IMPRESSION: Worsening of right basilar infiltrate. Chest x-ray - 04/09/20 - Procedure: XRAY Chest 1v FILM CXR 1 VIEW INDICATION: Infection COMPARISON: April 05, 2020 FINDINGS: Single frontal view demonstrates a normal cardiomediastinal silhouette. Endotracheal tube in place with tip above the sunny. Elevation of the right hemidiaphragm. Interstitial prominence with bilateral lower lobe infiltrates. Lung bases appear worse from the prior exam. Small right effusion. Right-sided PICC line with tip in the superior vena cava. Enteric tube in place. IMPRESSION: Interstitial prominence and bilateral lower lobe pneumonia with worsening appearance from the prior study. Chest x-ray - 04/12/20 - Procedure: XRAY Chest 1v Indication: Shortness of breath Technique: One view of the chest Comparison: 04/09/2020 Findings: Stable satisfactory tube and line positions. Bilateral infiltrates have worsened slightly since prior study. The heart size is normal. Impression: Worsening bilateral infiltrates, over 3 days Microbiology Date/Time Source Procedure Growth Status 04/12/20 08:40 Urine,Clean Catch Urine Culture - Preliminary NO GROWTH Resulted 04/12/20 08:40 Sputum Gram Stain - Final Complete 04/12/20 08:40 Sputum Sputum Culture - Final NORMAL UPPER RESPIRATORY WILIAM AT 48 ... Complete 04/11/20 18:55 Blood Blood Culture - Preliminary NO GROWTH AFTER 24 HOURS Resulted 04/11/20 18:40 Blood Blood Culture - Preliminary NO GROWTH AFTER 24 HOURS Resulted Laboratory Tests Test 04/14/20 03:16 04/14/20 09:00 White Blood Count 5.5 K/UL (4.8-10.8) Red Blood Count 3.37 M/UL (4.70-6.10) L Hemoglobin 9.4 G/DL (14.2-18.0) L Hematocrit 30.9 % (42.0-52.0) L Mean Corpuscular Volume 92 FL (80-99) Mean Corpuscular Hemoglobin 28.0 PG (27.0-31.0) Mean Corpuscular Hemoglobin Concent 30.5 G/DL (32.0-36.0) L Red Cell Distribution Width 17.9 % (11.6-14.8) H Platelet Count 198 K/UL (150-450) Mean Platelet Volume 7.5 FL (6.5-10.1) Neutrophils (%) (Auto) % (45.0-75.0) Lymphocytes (%) (Auto) % (20.0-45.0) Monocytes (%) (Auto) % (1.0-10.0) Eosinophils (%) (Auto) % (0.0-3.0) Basophils (%) (Auto) % (0.0-2.0) Differential Total Cells Counted 100 Neutrophils % (Manual) 81 % (45-75) H Lymphocytes % (Manual) 13 % (20-45) L Monocytes % (Manual) 3 % (1-10) Eosinophils % (Manual) 0 % (0-3) Basophils % (Manual) 0 % (0-2) Band Neutrophils 3 % (0-8) Nucleated Red Blood Cells 1 /100 WBC Platelet Estimate Adequate Platelet Morphology Normal Hypochromasia 1+ Anisocytosis 1+ Sodium Level 142 MMOL/L (136-145) Potassium Level 4.6 MMOL/L (3.5-5.1) Chloride Level 106 MMOL/L (98-107) Carbon Dioxide Level 34 MMOL/L (21-32) H Anion Gap 2 mmol/L (5-15) L Blood Urea Nitrogen 19 mg/dL (7-18) H Creatinine 0.5 MG/DL (0.55-1.30) L Estimat Glomerular Filtration Rate > 60 mL/min (>60) Glucose Level 142 MG/DL (74-106) H Calcium Level 8.0 MG/DL (8.5-10.1) L Phosphorus Level 3.2 MG/DL (2.5-4.9) Magnesium Level 2.3 MG/DL (1.8-2.4) Total Bilirubin 0.6 MG/DL (0.2-1.0) Aspartate Amino Transf (AST/SGOT) 34 U/L (15-37) Alanine Aminotransferase (ALT/SGPT) 201 U/L (12-78) H Alkaline Phosphatase 309 U/L (46-116) H Total Protein 4.9 G/DL (6.4-8.2) L Albumin 1.7 G/DL (3.4-5.0) L Globulin 3.2 g/dL Albumin/Globulin Ratio 0.5 (1.0-2.7) L Arterial Blood pH 7.429 (7.350-7.450) Arterial Blood Partial Pressure CO2 55.4 mmHg (35.0-45.0) *H Arterial Blood Partial Pressure O2 69.2 mmHg (75.0-100.0) L Arterial Blood HCO3 35.9 mmol/L (22.0-26.0) H Arterial Blood Oxygen Saturation 92.9 % (95-100) L Arterial Blood Base Excess 10.1 (-2-2) *H Shemar Test Positive Current Medications Medications (Trade) Dose Ordered Sig/Dennis Route PRN Reason Start Time Stop Time Status Last Admin Dose Admin Acetaminophen (Tylenol) 650 mg Q4H PRN ORAL Temp >100.5 04/13/20 00:30 05/13/20 00:29 04/13/20 01:30 Bisacodyl (Dulcolax) 10 mg Q12H PRN RECTAL Constipation 03/18/20 16:45 06/16/20 16:44 Chlorhexidine Gluconate (Marlen-Hex 2%) 1 applic DAILY@1999 TOPIC 03/30/20 20:00 06/28/20 19:59 04/13/20 20:32 Dextrose (Dextrose 50%) 25 ml Q30M PRN IV Hypoglycemia 03/29/20 20:45 06/27/20 20:44 Dextrose (Dextrose 50%) 50 ml Q30M PRN IV Hypoglycemia 03/29/20 20:45 06/27/20 20:44 Enoxaparin Sodium (Lovenox) 80 mg EVERY 12 HOURS SUBQ 04/06/20 21:00 07/05/20 20:59 04/14/20 08:36 Fentanyl Citrate 250 ml @ 1 mls/hr Q24H IV 04/14/20 00:15 04/16/20 00:14 04/14/20 10:33 Furosemide (Lasix) 20 mg DAILY IV 04/12/20 11:00 05/12/20 10:59 04/14/20 08:34 Hydralazine HCl (Apresoline) 10 mg Q4H PRN IV For High Blood Pressure 03/30/20 12:15 06/28/20 12:14 04/03/20 21:00 Insulin Aspart (NovoLOG) Q6HR SUBQ 03/30/20 00:00 06/28/20 00:00 04/14/20 06:08 Labetalol HCl (Normodyne) 10 mg Q4H PRN IV sbp greater tahtn 160 03/28/20 17:30 04/27/20 17:29 Methylprednisolone Sodium Succinate (Solu-MEDROL) 20 mg Q12HR IVP 04/12/20 21:00 06/20/20 20:59 04/14/20 08:35 Metoclopramide HCl (Reglan) 10 mg Q6H IVP 03/30/20 15:00 04/29/20 14:59 04/14/20 08:35 Micafungin Sodium 100 mg/Sodium Chloride 100 ml @ 100 mls/hr Q24H IVPB 04/09/20 15:00 04/22/20 23:59 04/13/20 16:14 Midazolam HCl 100 mg/Sodium Chloride 200 ml @ 0 mls/hr Q24H PRN IV To Patient Comfort 04/13/20 21:00 04/15/20 20:59 04/14/20 08:37 Pantoprazole (Protonix) 40 mg EVERY 12 HOURS IVP 04/01/20 21:00 05/01/20 20:59 04/14/20 08:35 Piperacillin Sod/ Tazobactam Sod 3.375 gm/Dextrose 100 ml @ 25 mls/hr EVERY 8 HOURS IVPB 04/11/20 22:00 04/16/20 21:59 04/14/20 05:52 Trimethoprim/ Sulfamethoxazole (Bactrim-DS) 1 tab Q24H ORAL 03/29/20 17:00 05/10/20 16:59 04/13/20 16:15 Vancomycin HCl (Vanco pharmacy to dose) 1 ea DAILY PRN MISC Per rx protocol 04/11/20 17:30 05/11/20 17:29 Vancomycin HCl 1 gm/Sodium Chloride 275 ml @ 183.708 mls/hr Q8H IVPB 04/12/20 18:30 04/17/20 18:29 04/14/20 10:31 Kisha Salazar MD Apr 14, 2020 12:29
--- NOTE | 2020-04-14 12:32 | Nephrology Progress Note ---
Assessment/Plan Problem List: (1) Dehydration (2) Electrolyte imbalance (3) COVID-19 virus infection (4) Pneumonia (5) DMII (diabetes mellitus, type 2) (6) Protein malnutrition Assessment Azotemia, hypernatremia Hypoalbuminemia Staff Otilia bacteremia COVID-19 isolation, pneumonia, bilateral infiltrate Hypertension Diabetes mellitus History of smoking Plan April 14: Status quo. Labs reviewed. Remains intubated on ventilator. Full code. Continue per consultants. April 13: Status quo. Labs reviewed. Renal parameters electrolytes stable. Continue per current treatment plan. April 12: On higher FiO2. Will resume Lasix daily. Continue to monitor electrolytes and renal parameters. Per consultants. April 11: FiO2 went up to 85%. Renal parameters and electrolytes reasonably well-maintained. Will monitor serum potassium. Will give IV Lasix. April 10: Status quo. Labs reviewed. Remains intubated on ventilator with Fi O2 of 65%. Remains full code. Stable from renal standpoint to view. Repeat vitamin D level on April 08 pending April 09: Status quo. Labs reviewed. Stable from renal standpoint of view. Continue per consultants. April 08: Discussed with RN. Labs reviewed. Clinically improving. Requires lower PEEP. Continue per pulmonary. Continue to monitor renal parameters. April 07: Remains full code and on ventilator. Labs reviewed. Renal parameters and electrolytes stable. Continue per consultants. Blood pressure marginally improved. April 06: Full code. On ventilator. Blood pressure 80-90 systolic. IV Lasix discontinued. Free water through tube feeding ordered. Continue to monitor electrolytes and serum sodium. Down on fentanyl as possible. Discussed with PRIYANKA Brown. Clonidine patch discontinued. April 05: Status quo. Remains full code. Remains intubated. Labs reviewed. Renal parameters stable. Serum sodium 150 unchanged. Continue per consultants. April 04: Remains intubated and on ventilator. Remains full code. Labs reviewed. Serum sodium 150 unchanged. Renal parameters stable. Continue per ID and pulmonary. April 03: Intubated. On ventilator. Full code. Labs reviewed. Serum sodium 150 unchanged. Continue to monitor renal parameters. Continue per pulmonary and ID. April 02: Full code. On ventilator. Discussed with RN. Serum sodium slightl y higher. Will cut down on IV Lasix. Continue per consultants. Continue to monitor renal parameters and electrolytes. April 01: Full code. Remains on ventilator. Labs reviewed. Stable from renal standpoint of view. Continue per consultants. March 31: Full code . Remains intubated on ventilator. Labs reviewed. Patient appears toxic. Discussed with RN. Maintenance IV discontinued. Medication list reviewed. Blood pressure medication stopped due to low blood pressure. Levemir insulin stopped. Continue monitor blood sugar and sliding scale insulin. March 30: Full code. On ventilator. Labs reviewed. Clonidine patch dose increased. Lasix increased. 3% saline 1 time ordered. Continue to monitor electrolytes and renal parameters. March 29: Remains full code. On mechanical ventilation. On tube feeding. Will DC TPN. Will start on maintenance IV fluid. Continue to monitor renal parameters. March 28: On BiPAP. Full code. On TPN. Labs reviewed. Discussed with pharmacy. Continue as is. Watch serum potassium. March 27: Remains on BiPAP. No chemistry panel done today. Full code. On TPN. Will check lab tomorrow. March 26: Remains on BiPAP. Remains on TPN. Labs reviewed. Electrolytes and chemistries within normal limits. Continue as is. March 25: Remains on TPN. Labs reviewed. Discussed with pharmacy. Change IV Protonix to p.o. Continue 3% saline infusion with Lasix. Patient full code. March 24: Continue to be on TPN. Labs are reviewed. Aim to collect electrolytes. Discussed with pharmacy. Continue current consultants. March 23: Continues to be on TPN. Labs reviewed. Electrolytes and chemistries all acceptable. Discussed with pharmacy. Continue current management. March 22: On TPN. Labs reviewed. Low sodium noted. 3% saline to be continued. Continue to monitor electrolytes. Discussed with pharmacy. March 21: On TPN. Labs reviewed. Continue 3% saline and Lasix for mild hyponatremia. Continue TPN as these. Discussed with pharmacy. March 20: Remains on TPN. Labs reviewed. Serum sodium higher on IV Lasix and 3% saline infusion. Continue TPN as is. Continue to monitor renal parameters and electrolytes. Discussed with Dr. Mata March 19: Remains on TPN. Labs reviewed. Serum sodium 128. Will give 3% saline with IV Lasix. Continue to monitor electrolytes. No change in TPN composition. Discussed with pharmacy. March 18: Remains on TPN. Labs reviewed. Discussed with pharmacist. Will give 3 doses of IV Lasix 20 mg every 8 hours. Continue to monitor serum sodium electrolytes uric acid. White blood cells down. Continue per consultants. March 17: On TPN. Labs reviewed. Discussed with pharmacist. Sodium content increase. Continue to monitor CMP. Patient continues to have leukocytosis. March 16: On TPN. Labs reviewed. Discussed with pharmacist. Appropriate changes made. Continue to monitor electrolytes. March 15: Remains on TPN. Labs reviewed. Discussed with pharmacist. Continue per current management. March 14: Remains on TPN. Labs reviewed, stable. Vitamin D level low, replacement ordered. Continue to monitor electrolytes and renal parameters. March 13: Patient remains on TPN. Discussed with pharmacist. TPN's sodium content adjusted. Labs reviewed. Continue to monitor electrolytes. Blood pressure remains stable. Continue per consultants. March 12: Patient on TPN. Labs reviewed. CPK remains elevated. Abnormal electrolytes and high blood sugar discussed with pharmacist and TPN adjusted. Continue to monitor labs. Oral Protonix added. Ibuprofen discontinued. Can continue to monitor electrolytes and chemistries. Levemir for high blood sugar added. March 11: Patient on TPN. Labs as of 11:15 AM is still pending. Continue per current treatment plan. Will check labs and adjust TPN as needed. Continue per consultants. March 10: Patient on TPN. Labs reviewed. Electrolytes overall stable. CPK is elevated. Will monitor electrolyte, CPK level, lipid panel. Continue per consultants. Discussed with pharmacist. Discussed with RN. Nutritional evaluation noted. Previously: D5W 100 cc an hour Monitor electrolytes renal parameters TPN and Intralipid ordered Will follow Continue per consultants Dietary consult requested Subjective ROS Limited/Unobtainable: Yes Objective Objective Last 24 Hour Vital Signs Date Time Temp Pulse Resp B/P (MAP) Pulse Ox O2 Delivery O2 Flow Rate FiO2 04/14/20 12:00 Mechanical Ventilator 04/14/20 12:00 90 04/14/20 10:33 18 107/59 Mechanical Ventilator 90 04/14/20 10:00 18 Mechanical Ventilator 90 04/14/20 10:00 18 110/58 Mechanical Ventilator 90 04/14/20 09:00 18 Mechanical Ventilator 90 04/14/20 09:00 18 130/66 Mechanical Ventilator 90 04/14/20 08:37 18 Mechanical Ventilator 90 04/14/20 08:30 69 18 120/60 (80) 98 04/14/20 08:00 18 122/64 Mechanical Ventilator 90 04/14/20 08:00 90 04/14/20 08:00 97.8 66 18 122/64 (83) 98 04/14/20 08:00 Mechanical Ventilator 04/14/20 07:30 61 18 130/75 (93) 100 04/14/20 07:00 59 18 102/61 (75) 99 04/14/20 07:00 18 102/61 Mechanical Ventilator 90 04/14/20 07:00 18 Mechanical Ventilator 90 04/14/20 07:00 18 102/61 Mechanical Ventilator 90 04/14/20 06:30 60 18 104/57 (73) 99 04/14/20 06:00 61 18 106/59 (75) 99 04/14/20 06:00 18 106/59 Mechanical Ventilator 90 04/14/20 06:00 18 Mechanical Ventilator 90 04/14/20 05:30 61 18 101/56 (71) 98 04/14/20 05:00 18 101/56 Mechanical Ventilator 90 04/14/20 05:00 18 Mechanical Ventilator 90 04/14/20 05:00 64 18 104/57 (73) 98 04/14/20 04:39 79 18 90 04/14/20 04:30 66 18 110/59 (76) 98 04/14/20 04:00 90 04/14/20 04:00 78 04/14/20 04:00 18 110/59 Mechanical Ventilator 90 04/14/20 04:00 18 Mechanical Ventilator 90 04/14/20 04:00 99.0 68 18 120/62 (81) 97 04/14/20 04:00 Mechanical Ventilator 04/14/20 03:30 76 18 133/72 (92) 95 04/14/20 03:17 82 18 90 04/14/20 03:00 18 133/72 Mechanical Ventilator 90 04/14/20 03:00 18 Mechanical Ventilator 90 04/14/20 03:00 89 24 157/85 (109) 83 04/14/20 02:30 62 18 110/60 (77) 98 04/14/20 02:22 18 113/57 Endotracheal Tube 80 04/14/20 02:21 17 Mechanical Ventilator 90 04/14/20 02:00 68 18 113/57 (75) 98 04/14/20 02:00 18 133/72 Mechanical Ventilator 90 04/14/20 02:00 18 Mechanical Ventilator 90 04/14/20 01:30 67 18 113/59 (77) 98 04/14/20 01:00 68 18 116/60 (78) 97 04/14/20 01:00 18 113/59 Mechanical Ventilator 90 04/14/20 01:00 18 Mechanical Ventilator 90 04/14/20 00:43 65 18 90 04/14/20 00:30 71 18 115/59 (77) 95 04/14/20 00:00 90 04/14/20 00:00 78 04/14/20 00:00 18 115/59 Mechanical Ventilator 90 04/14/20 00:00 18 Mechanical Ventilator 90 04/14/20 00:00 Mechanical Ventilator 04/14/20 00:00 98.9 67 18 113/55 (74) 95 04/13/20 23:30 65 18 116/57 (76) 96 04/13/20 23:10 67 18 90 04/13/20 23:00 64 18 110/60 (77) 98 04/13/20 23:00 18 116/57 Mechanical Ventilator 90 04/13/20 23:00 18 Mechanical Ventilator 90 04/13/20 22:30 63 18 119/62 (81) 99 04/13/20 22:00 62 18 117/61 (79) 100 04/13/20 22:00 18 119/62 Mechanical Ventilator 90 04/13/20 22:00 18 Mechanical Ventilator 100 04/13/20 21:50 18 117/61 Mechanical Ventilator 100 04/13/20 21:50 18 Mechanical Ventilator 100 04/13/20 21:30 61 18 112/60 (77) 99 04/13/20 21:10 61 18 100 04/13/20 21:00 62 18 110/61 (77) 98 04/13/20 20:30 63 18 108/59 (75) 98 04/13/20 20:00 Mechanical Ventilator 04/13/20 20:00 100 04/13/20 20:00 78 04/13/20 20:00 98.0 65 18 108/58 (75) 98 04/13/20 19:30 71 18 112/61 (78) 97 04/13/20 19:10 68 18 100 04/13/20 19:00 77 18 118/68 (85) 98 04/13/20 19:00 18 118/68 Mechanical Ventilator 100 04/13/20 19:00 18 Mechanical Ventilator 100 04/13/20 18:30 86 18 131/64 (86) 98 04/13/20 18:10 18 138/64 Mechanical Ventilator 100 04/13/20 18:00 18 138/64 Mechanical Ventilator 100 04/13/20 18:00 18 Mechanical Ventilator 100 04/13/20 18:00 85 18 138/64 (88) 99 04/13/20 17:30 61 18 101/52 (68) 99 04/13/20 17:00 18 101/52 Mechanical Ventilator 100 04/13/20 17:00 18 Mechanical Ventilator 100 04/13/20 17:00 61 18 103/58 (73) 100 04/13/20 16:45 18 Mechanical Ventilator 100 04/13/20 16:00 61 04/13/20 16:00 Mechanical Ventilator 04/13/20 16:00 18 100/59 Mechanical Ventilator 100 04/13/20 16:00 18 Mechanical Ventilator 100 04/13/20 16:00 100 04/13/20 16:00 98.9 61 18 100/59 (73) 100 04/13/20 15:30 59 18 102/56 (71) 100 04/13/20 15:15 61 18 100 04/13/20 15:00 18 102/56 Mechanical Ventilator 100 04/13/20 15:00 18 Mechanical Ventilator 100 04/13/20 15:00 60 18 98/54 (69) 100 04/13/20 14:00 60 18 105/57 (73) 100 04/13/20 14:00 18 105/57 Mechanical Ventilator 100 04/13/20 14:00 18 Mechanical Ventilator 100 04/13/20 13:00 61 18 101/57 (72) 100 04/13/20 13:00 18 101/57 Mechanical Ventilator 100 04/13/20 13:00 18 Mechanical Ventilator 100 Intake and Output 04/13/20 04/14/20 19:00 07:00 Intake Total 2432.500 ml 1345.67 ml Output Total 2390 ml 1045 ml Balance 42.500 ml 300.67 ml IV Total 1592.500 ml 745.67 ml Tube Feeding 600 ml 600 ml Other 240 ml Output Urine Total 2390 ml 1045 ml Current Medications Medications (Trade) Dose Ordered Sig/Dennis Route PRN Reason Start Time Stop Time Status Last Admin Dose Admin Acetaminophen (Tylenol) 650 mg Q4H PRN ORAL Temp >100.5 04/13/20 00:30 05/13/20 00:29 04/13/20 01:30 Bisacodyl (Dulcolax) 10 mg Q12H PRN RECTAL Constipation 03/18/20 16:45 06/16/20 16:44 Chlorhexidine Gluconate (Marlen-Hex 2%) 1 applic DAILY@2000 TOPIC 03/30/20 20:00 06/28/20 19:59 04/13/20 20:32 Dextrose (Dextrose 50%) 25 ml Q30M PRN IV Hypoglycemia 03/29/20 20:45 06/27/20 20:44 Dextrose (Dextrose 50%) 50 ml Q30M PRN IV Hypoglycemia 03/29/20 20:45 06/27/20 20:44 Enoxaparin Sodium (Lovenox) 80 mg EVERY 12 HOURS SUBQ 04/06/20 21:00 07/05/20 20:59 04/14/20 08:36 Fentanyl Citrate 250 ml @ 1 mls/hr Q24H IV 04/14/20 00:15 04/16/20 00:14 04/14/20 10:33 Furosemide (Lasix) 20 mg DAILY IV 04/12/20 11:00 05/12/20 10:59 04/14/20 08:34 Hydralazine HCl (Apresoline) 10 mg Q4H PRN IV For High Blood Pressure 03/30/20 12:15 06/28/20 12:14 04/03/20 21:00 Insulin Aspart (NovoLOG) Q6HR SUBQ 03/30/20 00:00 06/28/20 00:00 04/14/20 06:08 Labetalol HCl (Normodyne) 10 mg Q4H PRN IV sbp greater tahtn 160 03/28/20 17:30 04/27/20 17:29 Methylprednisolone Sodium Succinate (Solu-MEDROL) 20 mg Q12HR IVP 04/12/20 21:00 06/20/20 20:59 04/14/20 08:35 Metoclopramide HCl (Reglan) 10 mg Q6H IVP 03/30/20 15:00 04/29/20 14:59 04/14/20 08:35 Micafungin Sodium 100 mg/Sodium Chloride 100 ml @ 100 mls/hr Q24H IVPB 04/09/20 15:00 04/22/20 23:59 04/13/20 16:14 Midazolam HCl 100 mg/Sodium Chloride 200 ml @ 0 mls/hr Q24H PRN IV To Patient Comfort 04/13/20 21:00 04/15/20 20:59 04/14/20 08:37 Pantoprazole (Protonix) 40 mg EVERY 12 HOURS IVP 04/01/20 21:00 05/01/20 20:59 04/14/20 08:35 Piperacillin Sod/ Tazobactam Sod 3.375 gm/Dextrose 100 ml @ 25 mls/hr EVERY 8 HOURS IVPB 04/11/20 22:00 04/16/20 21:59 04/14/20 05:52 Trimethoprim/ Sulfamethoxazole (Bactrim-DS) 1 tab Q24H ORAL 03/29/20 17:00 05/10/20 16:59 04/13/20 16:15 Vancomycin HCl ([facility] pharmacy to dose) 1 ea DAILY PRN MISC Per rx protocol 04/11/20 17:30 05/11/20 17:29 Vancomycin HCl 1 gm/Sodium Chloride 275 ml @ 183.708 mls/hr Q8H IVPB 04/12/20 18:30 04/17/20 18:29 04/14/20 10:31 Laboratory Tests 04/14/20 03:16: White Blood Count 5.5, Red Blood Count 3.37L, Hemoglobin 9.4L, Hematocrit 30.9L, Mean Corpuscular Volume 92, Mean Corpuscular Hemoglobin 28.0, Mean Corpuscular Hemoglobin Concent 30.5L, Red Cell Distribution Width 17.9H, Platelet Count 198, Mean Platelet Volume 7.5, Neutrophils (%) (Auto) , Lymphocytes (%) (Auto) , Monocytes (%) (Auto) , Eosinophils (%) (Auto) , Basophils (%) (Auto) , Differential Total Cells Counted 100, Neutrophils % (Manual) 81H, Lymphocytes % (Manual) 13L, Monocytes % (Manual) 3, Eosinophils % (Manual) 0, Basophils % (Manual) 0, Band Neutrophils 3, Nucleated Red Blood Cells 1, Platelet Estimate Adequate, Platelet Morphology Normal, Hypochromasia 1+, Anisocytosis 1+, Sodium Level 142, Potassium Level 4.6, Chloride Level 106, Carbon Dioxide Level 34H, Anion Gap 2L, Blood Urea Nitrogen 19H, Creatinine 0.5L, Estimat Glomerular Filtration Rate > 60, Glucose Level 142H, Calcium Level 8.0L, Phosphorus Level 3.2, Magnesium Level 2.3, Total Bilirubin 0.6, Aspartate Amino Transf (AST/SGOT) 34, Alanine Aminotransferase (ALT/SGPT) 201H, Alkaline Phosphatase 309H, Total Protein 4.9L, Albumin 1.7L, Globulin 3.2, Albumin/Globulin Ratio 0.5L 04/14/20 09:00: Arterial Blood pH 7.429, Arterial Blood Partial Pressure CO2 55.4*H, Arterial Blood Partial Pressure O2 69.2L, Arterial Blood HCO3 35.9H, Arterial Blood Oxygen Saturation 92.9L, Arterial Blood Base Excess 10.1*H, Shemar Test Positive Height (Feet): 5 Height (Inches): 10.00 Weight (Pounds): 240 General Appearance: no apparent distress, other - On FiO2 of 90% EENT: other - Intubated on ventilator Cardiovascular: normal rate Respiratory/Chest: decreased breath sounds Abdomen: distended Rubin Cooper MD Apr 14, 2020 12:32
[2020-04-14] MEDS: Piperacillin/Tazobactam 3.375 GM in D5W 110 ML IVPB SCH ×2 (13:39→22:19)
--- NOTE | 2020-04-14 14:24 | NUR ---
INSURANCE CLINCALS/REVIEW FAXED TO [employer] T: [phone] #1 F: [phone] AND [employer]IC:JACQUELINE JAMES T: [phone] F: [phone] [facility] #[phone]
--- NOTE | 2020-04-14 16:30 | NUR ---
NURSE NOTES: Bed bath given. Kept dry, clean and comfortable.
[2020-04-14] MEDS: Bactrim-DS 1 tab ORAL SCH (17:45)
--- NOTE | 2020-04-14 18:43 | Consultation ---
History of Present Illness General Date patient seen: Apr 14, 2020 Reason for Hospitalization: Pain Present Illness HPI 64-year-old male who comes in to [facility] emergency room with chest pain and shortness of breath. 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 The patient comes in also with back and chest pain. CT angiogram in the emergency room showed no pulmonary embolism, however, did show ground-glass opacities. There was concern that patient could have COVID-19 pneumonia and placed on isolation. Since intubated in intensive care unit on support for some time. i was asked to evaluate for tracheostomy. Patient seen patient value chart reviewed care discussed with pulmonary critical care teams Allergies: Coded Allergies: No Known Allergies (Unverified , 02/05/20) COVID-19 Screening Contact w/high risk pt: Yes Experienced COVID-19 symptoms?: No Medication History Scheduled Amlodipine Besylate (Norvasc), 5 MG ORAL BID Cefazolin Sodium/Dextrose,Iso (Cefazolin 2 Gm-D5w Bag), 2 GM IV EVERY 8 HOURS Hydralazine Hcl* (Hydralazine Hcl*), 25 MG ORAL Q8HR Miscellaneous Medications [No Known Medications], (Reported) Patient History Limited by: medical condition History Provided By: Medical Record, PMD Healthcare decision maker Resuscitation status Advanced Directive on File Past Medical/Surgical History Past Medical/Surgical History: (1) Pneumonia (2) Staphylococcus aureus bacteremia (3) COVID-19 virus infection (4) Chest pain (5) Hypertension (6) Dehydration (7) Electrolyte imbalance (8) DMII (diabetes mellitus, type 2) (9) Protein malnutrition Review of Systems Review of Symptoms General ROS: no weight loss or fever Psychological ROS: no depression or mood changes, no memory loss Ophthalmic ROS: no visual changes or eye irritation ENT ROS: no nasal congestion, hearing loss, dizziness Allergy and Immunology ROS: no allergic symptoms or urticaria Hematological and Lymphatic ROS: no swollen glands, unusual bleeding or bruising Endocrine ROS: no polyuria, polydipsia, weight changes, temperature intolerance Respiratory ROS: no cough, shortness of breath, or wheezing Cardiovascular ROS: no chest pain or dyspnea on exertion Gastrointestinal ROS: denies abdominal pain, bright red blood in stool. Musculoskeletal ROS: no myalgias or arthralgias Neurological ROS: no TIA or stroke symptoms Dermatological ROS: no new or changing skin lesions, rashes or pruritis limited given medical condition Physical Exam Physical Exam General appearance: ill appearing in respiratory distress, appears stated age Head: Normocephalic, without obvious abnormality, atraumatic Eyes: conjunctivae/corneas clear. PERRL, EOM's intact. Fundi benign Throat: Lips, mucosa, and tongue normal. Teeth and gums normal Neck: supple, symmetrical, trachea midline, no adenopathy, thyroid: not enlarged, symmetric, no tenderness/mass/nodules, no carotid bruit and no JVD Lungs: dec to auscultation bilaterally on vent Heart: regular rate and rhythm, S1, S2 normal, no murmur, click, rub or gallop Abdomen: soft, non-tender. Bowel sounds normal. No masses, no organomegaly Extremities: extremities edema Pulses: 2+ and symmetric Skin: Skin color, texture, turgor normal. No rashes or lesions Neurologic: Grossly normal Last 24 Hour Vital Signs Date Time Temp Pulse Resp B/P (MAP) Pulse Ox O2 Delivery O2 Flow Rate FiO2 04/14/20 18:00 77 18 136/68 (90) 91 04/14/20 17:00 100 24 155/77 (103) 79 04/14/20 16:30 98.1 99 24 140/65 (90) 80 04/14/20 16:00 75 04/14/20 16:00 90 04/14/20 16:00 84 18 132/61 (84) 96 04/14/20 16:00 Mechanical Ventilator 04/14/20 15:30 83 17 142/64 (90) 96 04/14/20 15:22 68 18 90 04/14/20 15:00 63 18 118/61 (80) 98 04/14/20 14:30 61 18 122/62 (82) 98 04/14/20 14:00 60 18 117/63 (81) 98 04/14/20 13:40 18 Mechanical Ventilator 90 04/14/20 13:30 59 18 110/58 (75) 98 04/14/20 13:00 18 111/57 Mechanical Ventilator 90 04/14/20 13:00 18 Mechanical Ventilator 90 04/14/20 13:00 60 18 111/57 (75) 98 04/14/20 12:30 60 18 116/59 (78) 97 04/14/20 12:00 Mechanical Ventilator 04/14/20 12:00 98.0 60 18 109/58 (75) 97 04/14/20 12:00 18 109/58 Mechanical Ventilator 90 04/14/20 12:00 18 Mechanical Ventilator 90 04/14/20 12:00 90 04/14/20 12:00 60 04/14/20 12:00 60 18 109/58 (75) 97 04/14/20 11:30 61 18 111/57 (75) 97 04/14/20 11:05 61 18 90 04/14/20 11:00 62 18 113/55 (74) 95 04/14/20 11:00 18 113/55 Mechanical Ventilator 90 04/14/20 11:00 18 Mechanical Ventilator 90 04/14/20 10:33 18 107/59 Mechanical Ventilator 90 04/14/20 10:30 63 18 107/59 (75) 95 04/14/20 10:00 64 18 110/58 (75) 96 04/14/20 10:00 18 Mechanical Ventilator 90 04/14/20 10:00 18 110/58 Mechanical Ventilator 90 04/14/20 09:30 66 18 118/62 (80) 96 04/14/20 09:00 69 18 130/66 (87) 98 04/14/20 09:00 18 Mechanical Ventilator 90 04/14/20 09:00 18 130/66 Mechanical Ventilator 90 04/14/20 08:37 18 Mechanical Ventilator 90 04/14/20 08:30 69 18 120/60 (80) 98 04/14/20 08:00 18 122/64 Mechanical Ventilator 90 04/14/20 08:00 90 04/14/20 08:00 97.8 66 18 122/64 (83) 98 04/14/20 08:00 61 04/14/20 08:00 Mechanical Ventilator 04/14/20 07:30 61 18 130/75 (93) 100 04/14/20 07:25 61 18 90 04/14/20 07:00 59 18 102/61 (75) 99 04/14/20 07:00 18 102/61 Mechanical Ventilator 90 04/14/20 07:00 18 Mechanical Ventilator 90 04/14/20 07:00 18 102/61 Mechanical Ventilator 90 04/14/20 06:30 60 18 104/57 (73) 99 04/14/20 06:00 61 18 106/59 (75) 99 04/14/20 06:00 18 106/59 Mechanical Ventilator 90 04/14/20 06:00 18 Mechanical Ventilator 90 04/14/20 05:30 61 18 101/56 (71) 98 04/14/20 05:00 18 101/56 Mechanical Ventilator 90 04/14/20 05:00 18 Mechanical Ventilator 90 04/14/20 05:00 64 18 104/57 (73) 98 04/14/20 04:39 79 18 90 04/14/20 04:30 66 18 110/59 (76) 98 04/14/20 04:00 90 04/14/20 04:00 78 04/14/20 04:00 18 110/59 Mechanical Ventilator 90 04/14/20 04:00 18 Mechanical Ventilator 90 04/14/20 04:00 99.0 68 18 120/62 (81) 97 04/14/20 04:00 Mechanical Ventilator 04/14/20 03:30 76 18 133/72 (92) 95 04/14/20 03:17 82 18 90 04/14/20 03:00 18 133/72 Mechanical Ventilator 90 04/14/20 03:00 18 Mechanical Ventilator 90 04/14/20 03:00 89 24 157/85 (109) 83 04/14/20 02:30 62 18 110/60 (77) 98 04/14/20 02:22 18 113/57 Endotracheal Tube 80 04/14/20 02:21 17 Mechanical Ventilator 90 04/14/20 02:00 68 18 113/57 (75) 98 04/14/20 02:00 18 133/72 Mechanical Ventilator 90 04/14/20 02:00 18 Mechanical Ventilator 90 04/14/20 01:30 67 18 113/59 (77) 98 04/14/20 01:00 68 18 116/60 (78) 97 04/14/20 01:00 18 113/59 Mechanical Ventilator 90 04/14/20 01:00 18 Mechanical Ventilator 90 04/14/20 00:43 65 18 90 04/14/20 00:30 71 18 115/59 (77) 95 04/14/20 00:00 90 04/14/20 00:00 78 04/14/20 00:00 18 115/59 Mechanical Ventilator 90 04/14/20 00:00 18 Mechanical Ventilator 90 04/14/20 00:00 Mechanical Ventilator 04/14/20 00:00 98.9 67 18 113/55 (74) 95 04/13/20 23:30 65 18 116/57 (76) 96 04/13/20 23:10 67 18 90 04/13/20 23:00 64 18 110/60 (77) 98 04/13/20 23:00 18 116/57 Mechanical Ventilator 90 04/13/20 23:00 18 Mechanical Ventilator 90 04/13/20 22:30 63 18 119/62 (81) 99 04/13/20 22:00 62 18 117/61 (79) 100 04/13/20 22:00 18 119/62 Mechanical Ventilator 90 04/13/20 22:00 18 Mechanical Ventilator 100 04/13/20 21:50 18 117/61 Mechanical Ventilator 100 04/13/20 21:50 18 Mechanical Ventilator 100 04/13/20 21:30 61 18 112/60 (77) 99 04/13/20 21:10 61 18 100 04/13/20 21:00 62 18 110/61 (77) 98 04/13/20 20:30 63 18 108/59 (75) 98 04/13/20 20:00 Mechanical Ventilator 04/13/20 20:00 100 04/13/20 20:00 78 04/13/20 20:00 98.0 65 18 108/58 (75) 98 04/13/20 19:30 71 18 112/61 (78) 97 04/13/20 19:10 68 18 100 04/13/20 19:00 77 18 118/68 (85) 98 04/13/20 19:00 18 118/68 Mechanical Ventilator 100 04/13/20 19:00 18 Mechanical Ventilator 100 Intake and Output 04/13/20 04/14/20 19:00 07:00 Intake Total 2432.500 ml 1345.67 ml Output Total 2390 ml 1045 ml Balance 42.500 ml 300.67 ml IV Total 1592.500 ml 745.67 ml Tube Feeding 600 ml 600 ml Other 240 ml Output Urine Total 2390 ml 1045 ml Laboratory Tests Test 04/14/20 03:16 04/14/20 09:00 White Blood Count 5.5 K/UL (4.8-10.8) Red Blood Count 3.37 M/UL (4.70-6.10) L Hemoglobin 9.4 G/DL (14.2-18.0) L Hematocrit 30.9 % (42.0-52.0) L Mean Corpuscular Volume 92 FL (80-99) Mean Corpuscular Hemoglobin 28.0 PG (27.0-31.0) Mean Corpuscular Hemoglobin Concent 30.5 G/DL (32.0-36.0) L Red Cell Distribution Width 17.9 % (11.6-14.8) H Platelet Count 198 K/UL (150-450) Mean Platelet Volume 7.5 FL (6.5-10.1) Neutrophils (%) (Auto) % (45.0-75.0) Lymphocytes (%) (Auto) % (20.0-45.0) Monocytes (%) (Auto) % (1.0-10.0) Eosinophils (%) (Auto) % (0.0-3.0) Basophils (%) (Auto) % (0.0-2.0) Differential Total Cells Counted 100 Neutrophils % (Manual) 81 % (45-75) H Lymphocytes % (Manual) 13 % (20-45) L Monocytes % (Manual) 3 % (1-10) Eosinophils % (Manual) 0 % (0-3) Basophils % (Manual) 0 % (0-2) Band Neutrophils 3 % (0-8) Nucleated Red Blood Cells 1 /100 WBC Platelet Estimate Adequate Platelet Morphology Normal Hypochromasia 1+ Anisocytosis 1+ Sodium Level 142 MMOL/L (136-145) Potassium Level 4.6 MMOL/L (3.5-5.1) Chloride Level 106 MMOL/L (98-107) Carbon Dioxide Level 34 MMOL/L (21-32) H Anion Gap 2 mmol/L (5-15) L Blood Urea Nitrogen 19 mg/dL (7-18) H Creatinine 0.5 MG/DL (0.55-1.30) L Estimat Glomerular Filtration Rate > 60 mL/min (>60) Glucose Level 142 MG/DL (74-106) H Calcium Level 8.0 MG/DL (8.5-10.1) L Phosphorus Level 3.2 MG/DL (2.5-4.9) Magnesium Level 2.3 MG/DL (1.8-2.4) Total Bilirubin 0.6 MG/DL (0.2-1.0) Aspartate Amino Transf (AST/SGOT) 34 U/L (15-37) Alanine Aminotransferase (ALT/SGPT) 201 U/L (12-78) H Alkaline Phosphatase 309 U/L (46-116) H Total Protein 4.9 G/DL (6.4-8.2) L Albumin 1.7 G/DL (3.4-5.0) L Globulin 3.2 g/dL Albumin/Globulin Ratio 0.5 (1.0-2.7) L Arterial Blood pH 7.429 (7.350-7.450) Arterial Blood Partial Pressure CO2 55.4 mmHg (35.0-45.0) *H Arterial Blood Partial Pressure O2 69.2 mmHg (75.0-100.0) L Arterial Blood HCO3 35.9 mmol/L (22.0-26.0) H Arterial Blood Oxygen Saturation 92.9 % (95-100) L Arterial Blood Base Excess 10.1 (-2-2) *H Shemar Test Positive Height (Feet): 5 Height (Inches): 10.00 Weight (Pounds): 240 Medications Current Medications Medications (Trade) Dose Ordered Sig/Dennis Route PRN Reason Start Time Stop Time Status Last Admin Dose Admin Acetaminophen (Tylenol) 650 mg Q4H PRN ORAL Temp >100.5 04/13/20 00:30 05/13/20 00:29 04/13/20 01:30 Bisacodyl (Dulcolax) 10 mg Q12H PRN RECTAL Constipation 03/18/20 16:45 06/16/20 16:44 Chlorhexidine Gluconate (Marlen-Hex 2%) 1 applic DAILY@1999 TOPIC 03/30/20 20:00 06/28/20 19:59 04/13/20 20:32 Dextrose (Dextrose 50%) 25 ml Q30M PRN IV Hypoglycemia 03/29/20 20:45 06/27/20 20:44 Dextrose (Dextrose 50%) 50 ml Q30M PRN IV Hypoglycemia 03/29/20 20:45 06/27/20 20:44 Enoxaparin Sodium (Lovenox) 80 mg EVERY 12 HOURS SUBQ 04/06/20 21:00 07/05/20 20:59 04/14/20 08:36 Fentanyl Citrate 250 ml @ 1 mls/hr Q24H IV 04/14/20 00:15 04/16/20 00:14 04/14/20 10:33 Furosemide (Lasix) 20 mg DAILY IV 04/12/20 11:00 05/12/20 10:59 04/14/20 08:34 Hydralazine HCl (Apresoline) 10 mg Q4H PRN IV For High Blood Pressure 03/30/20 12:15 06/28/20 12:14 04/03/20 21:00 Insulin Aspart (NovoLOG) Q6HR SUBQ 03/30/20 00:00 06/28/20 00:00 04/14/20 06:08 Labetalol HCl (Normodyne) 10 mg Q4H PRN IV sbp greater tahtn 160 03/28/20 17:30 04/27/20 17:29 Methylprednisolone Sodium Succinate (Solu-MEDROL) 20 mg Q12HR IVP 04/12/20 21:00 06/20/20 20:59 04/14/20 08:35 Metoclopramide HCl (Reglan) 10 mg Q6H IVP 03/30/20 15:00 04/29/20 14:59 04/14/20 14:53 Micafungin Sodium 100 mg/Sodium Chloride 100 ml @ 100 mls/hr Q24H IVPB 04/09/20 15:00 04/22/20 23:59 04/14/20 14:53 Midazolam HCl 200 ml @ 0 mls/hr Q24H PRN IV To Patient Comfort 04/14/20 19:00 04/15/20 20:59 Midazolam HCl 100 mg/Sodium Chloride 200 ml @ 0 mls/hr Q24H PRN IV To Patient Comfort 04/13/20 21:00 04/14/20 18:59 04/14/20 13:40 Pantoprazole (Protonix) 40 mg EVERY 12 HOURS IVP 04/01/20 21:00 05/01/20 20:59 04/14/20 08:35 Piperacillin Sod/ Tazobactam Sod 3.375 gm/Dextrose 110 ml @ 27.5 mls/hr EVERY 8 HOURS IVPB 04/14/20 14:00 04/19/20 13:59 04/14/20 13:39 Trimethoprim/ Sulfamethoxazole (Bactrim-DS) 1 tab Q24H ORAL 03/29/20 17:00 05/10/20 16:59 04/14/20 17:45 Vancomycin HCl (Vanco pharmacy to dose) 1 ea DAILY PRN MISC Per rx protocol 04/11/20 17:30 05/11/20 17:29 Vancomycin HCl 1 gm/Sodium Chloride 275 ml @ 183.708 mls/hr Q8H IVPB 04/12/20 18:30 04/17/20 18:29 04/14/20 17:45 Assessment/Plan Problem List: (1) Pneumonia ICD Codes: J18.9 - Pneumonia, unspecified organism SNOMED: 894837111 (2) Staphylococcus aureus bacteremia ICD Codes: R78.81 - Bacteremia; B95.61 - Methicillin susceptible Staphylococcus aureus infection as the cause of diseases classified elsewhere SNOMED: 750445499 (3) COVID-19 virus infection ICD Codes: U07.1 - COVID-19 SNOMED: 590224597 (4) Chest pain ICD Codes: R07.9 - Chest pain, unspecified SNOMED: 99875606 (5) Hypertension ICD Codes: I10 - Essential (primary) hypertension SNOMED: 33429541 (6) Dehydration ICD Codes: E86.0 - Dehydration SNOMED: 43292925 (7) Electrolyte imbalance ICD Codes: E87.8 - Other disorders of electrolyte and fluid balance, not elsewhere classified SNOMED: 530401322 (8) DMII (diabetes mellitus, type 2) ICD Codes: E11.9 - Type 2 diabetes mellitus without complications SNOMED: 07842313 (9) Protein malnutrition ICD Codes: E46 - Unspecified protein-calorie malnutrition SNOMED: 807241801 (10) Respiratory insufficiency Assessment & Plan: 64-year-old male with respiratory insufficiency intubated in an intensive care unit. Patient has been unable to safely wean off ventilatory support. Surgery called to evaluate for tracheostomy. After careful evaluation patient is a candidate for tracheostomy. In the meantime will obtain consent. If consent obtained will proceed with scheduling. Thank you for your participation's care will follow recommendations ICD Codes: R06.89 - Other abnormalities of breathing SNOMED: 067096224 Booker Rausch Apr 14, 2020 18:43
--- NOTE | 2020-04-14 18:59 | Cardiology Progress Note ---
Assessment/Plan Assessment/Plan Acute covid 19 pneumonia hypoxemia infiltrate bilat bacteremia hypernatremia / hyponatremia mild abn lfts tachy post intubation fever fungemia dvt upper ext remains on 100 % still full sedated with fentanyl and versed low grade fevers yest nto today hypoxemia unlikely cardiac related tube feeding being tolerated echo reviewed last on 04/06 still shows normal lv function no valve pathology 04/12 cxr reviwed worsening lower lobes will reorder for tomorrow tele reviewed sinus remains critical now is on full dose anticoag due to dvt ue is getting diuretic again saturating at 100% whiel sedated on the vent but drops sat when being cleaed bp and heart rate are fine covid pcr negative , however considering that it took 3 tests to finally initially identify his covid infection i am not sure if we can trust Subjective ROS Limited/Unobtainable: Yes Subjective per rn Ptresting quietly in bed sedated,noted no resp distress orally intubated,ETT Objective Last 24 Hour Vital Signs Date Time Temp Pulse Resp B/P (MAP) Pulse Ox O2 Delivery O2 Flow Rate FiO2 04/14/20 18:53 22 138/73 Mechanical Ventilator 100 04/14/20 18:00 77 18 136/68 (90) 91 04/14/20 17:00 100 24 155/77 (103) 79 04/14/20 16:30 98.1 99 24 140/65 (90) 80 04/14/20 16:00 75 04/14/20 16:00 90 04/14/20 16:00 84 18 132/61 (84) 96 04/14/20 16:00 Mechanical Ventilator 04/14/20 15:30 83 17 142/64 (90) 96 04/14/20 15:22 68 18 90 04/14/20 15:00 63 18 118/61 (80) 98 04/14/20 14:30 61 18 122/62 (82) 98 04/14/20 14:00 60 18 117/63 (81) 98 04/14/20 13:40 18 Mechanical Ventilator 90 04/14/20 13:30 59 18 110/58 (75) 98 04/14/20 13:00 18 111/57 Mechanical Ventilator 90 04/14/20 13:00 18 Mechanical Ventilator 90 04/14/20 13:00 60 18 111/57 (75) 98 04/14/20 12:30 60 18 116/59 (78) 97 04/14/20 12:00 Mechanical Ventilator 04/14/20 12:00 98.0 60 18 109/58 (75) 97 04/14/20 12:00 18 109/58 Mechanical Ventilator 90 04/14/20 12:00 18 Mechanical Ventilator 90 04/14/20 12:00 90 04/14/20 12:00 60 04/14/20 12:00 60 18 109/58 (75) 97 04/14/20 11:30 61 18 111/57 (75) 97 04/14/20 11:05 61 18 90 04/14/20 11:00 62 18 113/55 (74) 95 04/14/20 11:00 18 113/55 Mechanical Ventilator 90 04/14/20 11:00 18 Mechanical Ventilator 90 04/14/20 10:33 18 107/59 Mechanical Ventilator 90 04/14/20 10:30 63 18 107/59 (75) 95 04/14/20 10:00 64 18 110/58 (75) 96 04/14/20 10:00 18 Mechanical Ventilator 90 04/14/20 10:00 18 110/58 Mechanical Ventilator 90 04/14/20 09:30 66 18 118/62 (80) 96 04/14/20 09:00 69 18 130/66 (87) 98 04/14/20 09:00 18 Mechanical Ventilator 90 04/14/20 09:00 18 130/66 Mechanical Ventilator 90 04/14/20 08:37 18 Mechanical Ventilator 90 04/14/20 08:30 69 18 120/60 (80) 98 04/14/20 08:00 18 122/64 Mechanical Ventilator 90 04/14/20 08:00 90 04/14/20 08:00 97.8 66 18 122/64 (83) 98 04/14/20 08:00 61 04/14/20 08:00 Mechanical Ventilator 04/14/20 07:30 61 18 130/75 (93) 100 04/14/20 07:25 61 18 90 04/14/20 07:00 59 18 102/61 (75) 99 04/14/20 07:00 18 102/61 Mechanical Ventilator 90 04/14/20 07:00 18 Mechanical Ventilator 90 04/14/20 07:00 18 102/61 Mechanical Ventilator 90 2/12/21 06:30 60 18 104/57 (73) 99 04/14/20 06:00 61 18 106/59 (75) 99 04/14/20 06:00 18 106/59 Mechanical Ventilator 90 04/14/20 06:00 18 Mechanical Ventilator 90 04/14/20 05:30 61 18 101/56 (71) 98 04/14/20 05:00 18 101/56 Mechanical Ventilator 90 04/14/20 05:00 18 Mechanical Ventilator 90 04/14/20 05:00 64 18 104/57 (73) 98 04/14/20 04:39 79 18 90 04/14/20 04:30 66 18 110/59 (76) 98 04/14/20 04:00 90 04/14/20 04:00 78 04/14/20 04:00 18 110/59 Mechanical Ventilator 90 04/14/20 04:00 18 Mechanical Ventilator 90 04/14/20 04:00 99.0 68 18 120/62 (81) 97 04/14/20 04:00 Mechanical Ventilator 04/14/20 03:30 76 18 133/72 (92) 95 04/14/20 03:17 82 18 90 04/14/20 03:00 18 133/72 Mechanical Ventilator 90 04/14/20 03:00 18 Mechanical Ventilator 90 04/14/20 03:00 89 24 157/85 (109) 83 04/14/20 02:30 62 18 110/60 (77) 98 04/14/20 02:22 18 113/57 Endotracheal Tube 80 04/14/20 02:21 17 Mechanical Ventilator 90 04/14/20 02:00 68 18 113/57 (75) 98 04/14/20 02:00 18 133/72 Mechanical Ventilator 90 04/14/20 02:00 18 Mechanical Ventilator 90 04/14/20 01:30 67 18 113/59 (77) 98 04/14/20 01:00 68 18 116/60 (78) 97 04/14/20 01:00 18 113/59 Mechanical Ventilator 90 04/14/20 01:00 18 Mechanical Ventilator 90 04/14/20 00:43 65 18 90 04/14/20 00:30 71 18 115/59 (77) 95 04/14/20 00:00 90 04/14/20 00:00 78 04/14/20 00:00 18 115/59 Mechanical Ventilator 90 04/14/20 00:00 18 Mechanical Ventilator 90 04/14/20 00:00 Mechanical Ventilator 04/14/20 00:00 98.9 67 18 113/55 (74) 95 04/13/20 23:30 65 18 116/57 (76) 96 04/13/20 23:10 67 18 90 04/13/20 23:00 64 18 110/60 (77) 98 04/13/20 23:00 18 116/57 Mechanical Ventilator 90 04/13/20 23:00 18 Mechanical Ventilator 90 04/13/20 22:30 63 18 119/62 (81) 99 04/13/20 22:00 62 18 117/61 (79) 100 04/13/20 22:00 18 119/62 Mechanical Ventilator 90 04/13/20 22:00 18 Mechanical Ventilator 100 04/13/20 21:50 18 117/61 Mechanical Ventilator 100 04/13/20 21:50 18 Mechanical Ventilator 100 04/13/20 21:30 61 18 112/60 (77) 99 04/13/20 21:10 61 18 100 04/13/20 21:00 62 18 110/61 (77) 98 04/13/20 20:30 63 18 108/59 (75) 98 04/13/20 20:00 Mechanical Ventilator 04/13/20 20:00 100 04/13/20 20:00 78 04/13/20 20:00 98.0 65 18 108/58 (75) 98 04/13/20 19:30 71 18 112/61 (78) 97 04/13/20 19:10 68 18 100 04/13/20 19:00 77 18 118/68 (85) 98 04/13/20 19:00 18 118/68 Mechanical Ventilator 100 04/13/20 19:00 18 Mechanical Ventilator 100 General Appearance: no apparent distress, on vent, patient on isolation, isolation precautions Extremities: no swelling Intake and Output 04/13/20 04/14/20 19:00 07:00 Intake Total 2432.500 ml 1345.67 ml Output Total 2390 ml 1045 ml Balance 42.500 ml 300.67 ml IV Total 1592.500 ml 745.67 ml Tube Feeding 600 ml 600 ml Other 240 ml Output Urine Total 2390 ml 1045 ml Laboratory Tests Test 04/14/20 03:16 2/12/21 09:00 White Blood Count 5.5 K/UL (4.8-10.8) Red Blood Count 3.37 M/UL (4.70-6.10) L Hemoglobin 9.4 G/DL (14.2-18.0) L Hematocrit 30.9 % (42.0-52.0) L Mean Corpuscular Volume 92 FL (80-99) Mean Corpuscular Hemoglobin 28.0 PG (27.0-31.0) Mean Corpuscular Hemoglobin Concent 30.5 G/DL (32.0-36.0) L Red Cell Distribution Width 17.9 % (11.6-14.8) H Platelet Count 198 K/UL (150-450) Mean Platelet Volume 7.5 FL (6.5-10.1) Neutrophils (%) (Auto) % (45.0-75.0) Lymphocytes (%) (Auto) % (20.0-45.0) Monocytes (%) (Auto) % (1.0-10.0) Eosinophils (%) (Auto) % (0.0-3.0) Basophils (%) (Auto) % (0.0-2.0) Differential Total Cells Counted 100 Neutrophils % (Manual) 81 % (45-75) H Lymphocytes % (Manual) 13 % (20-45) L Monocytes % (Manual) 3 % (1-10) Eosinophils % (Manual) 0 % (0-3) Basophils % (Manual) 0 % (0-2) Band Neutrophils 3 % (0-8) Nucleated Red Blood Cells 1 /100 WBC Platelet Estimate Adequate Platelet Morphology Normal Hypochromasia 1+ Anisocytosis 1+ Sodium Level 142 MMOL/L (136-145) Potassium Level 4.6 MMOL/L (3.5-5.1) Chloride Level 106 MMOL/L (98-107) Carbon Dioxide Level 34 MMOL/L (21-32) H Anion Gap 2 mmol/L (5-15) L Blood Urea Nitrogen 19 mg/dL (7-18) H Creatinine 0.5 MG/DL (0.55-1.30) L Estimat Glomerular Filtration Rate > 60 mL/min (>60) Glucose Level 142 MG/DL (74-106) H Calcium Level 8.0 MG/DL (8.5-10.1) L Phosphorus Level 3.2 MG/DL (2.5-4.9) Magnesium Level 2.3 MG/DL (1.8-2.4) Total Bilirubin 0.6 MG/DL (0.2-1.0) Aspartate Amino Transf (AST/SGOT) 34 U/L (15-37) Alanine Aminotransferase (ALT/SGPT) 201 U/L (12-78) H Alkaline Phosphatase 309 U/L (46-116) H Total Protein 4.9 G/DL (6.4-8.2) L Albumin 1.7 G/DL (3.4-5.0) L Globulin 3.2 g/dL Albumin/Globulin Ratio 0.5 (1.0-2.7) L Arterial Blood pH 7.429 (7.350-7.450) Arterial Blood Partial Pressure CO2 55.4 mmHg (35.0-45.0) *H Arterial Blood Partial Pressure O2 69.2 mmHg (75.0-100.0) L Arterial Blood HCO3 35.9 mmol/L (22.0-26.0) H Arterial Blood Oxygen Saturation 92.9 % (95-100) L Arterial Blood Base Excess 10.1 (-2-2) *H Shemar Test Positive Microbiology Date/Time Source Procedure Growth Status 04/12/20 08:40 Urine,Clean Catch Urine Culture - Preliminary YEAST Resulted 04/12/20 08:40 Sputum Gram Stain - Final Complete 04/12/20 08:40 Sputum Sputum Culture - Final NORMAL UPPER RESPIRATORY WILIAM AT 48 ... Complete Objective pt in covid 19 isoaltion with acute infection Manan Awan MD Apr 14, 2020 18:59
--- NOTE | 2020-04-14 19:02 | NUR ---
NURSE NOTES: Seen by Dr. Awan and assessed patient. Updated patient's condition. NNO.
--- NOTE | 2020-04-14 19:30 | NUR ---
NURSE NOTES: Received pt orally intubated ,on ac mode, sedated with Fentanyl drip at 300mcg/min, Versed at 10mg/min, SR-ST low 100s on the monitor, Bp stable, afebrile Extremities swollen with 2-3+ edema, Left arm 2-3+ swollen with limited mobility due to DVt Mds are aware. RT arm arm able to move and attempted to reached out therapeutic tubings . joseph to gravity with moderate amt of jeff yellow urine. Monitor I and o. Monitor lytes. will continue to monitor.
--- NOTE | 2020-04-14 19:30 | NUR ---
NURSE HAND-OFF REPORT: Latest Vital Signs: Temperature 98.1 , Pulse 88 , B/P 138 /73 , Respiratory Rate 21 , O2 SAT 91 , Mechanical Ventilator, O2 Flow Rate . Vital Sign Comment: stable EKG Rhythm: Sinus Rhythm Rhythm change?: N Notified?: Courtney Paige MD Response: Message left await call Latest Hassan Fall Score: 50 Fall Risk: High Risk Safety Measures: Call light Within Reach, Bed Alarm Zone 3, Side Rails Side Rails x3, Bed position Low and Locked. Fall Precautions: Yellow Socks Yellow Gown Door Sign Patient Fall Education Report given to PRIYANKA Hayden. Endorsed plan of care.
--- NOTE | 2020-04-14 20:00 | NUR ---
NURSE NOTES: Rt hand soft wrist restraints ordered for safety. fdg on hold residuals> 100. will cotinue to monitor.
[2020-04-14] MEDS: Dyna-Hex 2% Top Sol 2oz TOPIC SCH (20:25)
[2020-04-14] MEDS: Versed 100mg/NS 200ml 200 ML IV PRN (21:09)
--- NOTE | 2020-04-14 21:24 | NUR ---
NURSE NOTES: pt on -3 moderate sedation at this time, decreased Versed drip down to 9mg/hr
--- NOTE | 2020-04-14 22:00 | NUR ---
NURSE NOTES: Repositioned to sides for comfort, suctioned tn tk beige secretions moderate in amt.
--- NOTE | 2020-04-14 23:18 | Diagnostic Imaging Report ---
EXAM: XR Chest, 1 View CLINICAL HISTORY: SCREEN TECHNIQUE: Frontal view of the chest. COMPARISON: Chest x-ray 04/12/2020. FINDINGS: Lungs: Patchy airspace disease mid lower lungs are similar to the previous study. Pleural space: Unremarkable. No pneumothorax. Heart: Unremarkable. No cardiomegaly. Mediastinum: Unremarkable. Bones/joints: Osteopenia. Tubes, lines and devices: Endotracheal tube is noted in place approximately 3 cm above the sunny. NG tube is noted in place with tip below the diaphragm. Right-sided PICC line is noted in place with its tip at the level of the distal superior vena cava. Other findings: Patient is rotated right of midline. IMPRESSION: 1. No significant change from the previous study. 2. Hypoaeration. 3. Patchy airspace disease suggestive of Covid-19 pneumonia. 4. Endotracheal and NG tubes are noted in place and remain in good position. 5. Osteopenia.
--- NOTE | 2020-04-14 23:20 | NUR ---
NURSE NOTES: Called Dr Mata and informed md that pt desat 70-80s and aware md with blood gas result, with orders to increase sedation
[2020-04-15] VITALS (34 sets, daily range): BP systolic 94–201; BP diastolic 53–90
[2020-04-15] MEDS: Vancomycin 1 GM in NS 275 ML IVPB SCH ×3 (02:16→18:34)
[2020-04-15] MEDS: Metoclopramide 10mg/2ml Inj IVP SCH ×4 (03:17→21:00)
[2020-04-15] MEDS: fentaNYL 2500mcg/NS 250ml 250 ML IV SCH ×3 (03:19→22:15)
--- NOTE | 2020-04-15 04:00 | NUR ---
NURSE NOTES: Complete bed bath with bed changed was done.
[2020-04-15] MEDS: Versed 100mg/NS 200ml 200 ML IV PRN ×3 (04:13→20:09)
[2020-04-15 05:17] LABS: HEMATOCRIT 32.5 % (42.0-52.0); HEMOGLOBIN 10.2 G/DL (14.2-18.0); MEAN CORPUSCULAR VOLUME 91 FL (80-99); PLATELET COUNT 223 K/UL (150-450); RED BLOOD COUNT 3.57 M/UL (4.70-6.10); RED CELL DISTRIBUTION WIDTH 17.6 % (11.6-14.8); WHITE BLOOD COUNT 8.6 K/UL (4.8-10.8)
[2020-04-15 05:30] LABS: ALANINE AMINOTRANSFERASE 170 U/L (12-78); ALBUMIN 1.9 G/DL (3.4-5.0); ALBUMIN/GLOBULIN RATIO 0.5 (1.0-2.7); ALKALINE PHOSPHATASE 295 U/L (46-116); ANION GAP 6 mmol/L (5-15); ASPARTATE AMINO TRANSFERASE 31 U/L (15-37); BILIRUBIN,TOTAL 0.5 MG/DL (0.2-1.0); BLOOD UREA NITROGEN 18 mg/dL (7-18); CALCIUM 8.3 MG/DL (8.5-10.1); CARBON DIOXIDE 34 MMOL/L (21-32); CHLORIDE 103 MMOL/L (98-107); CREATININE 0.4 MG/DL (0.55-1.30); POTASSIUM 4.6 MMOL/L (3.5-5.1); SODIUM 143 MMOL/L (136-145)
[2020-04-15] MEDS: NovoLOG Insulin Flexpen SUBQ SCH ×5 (05:52→23:53)
[2020-04-15] MEDS: Piperacillin/Tazobactam 3.375 GM in D5W 110 ML IVPB SCH ×3 (06:07→21:55)
--- NOTE | 2020-04-15 07:32 | NUR ---
NURSE NOTES: Received report from Jackelyn MATHEW.
--- NOTE | 2020-04-15 07:49 | NUR ---
NURSE HAND-OFF REPORT: Latest Vital Signs: Temperature 99.0 , Pulse 73 , B/P 100 /60 , Respiratory Rate 21 , O2 SAT 100 , Mechanical Ventilator, O2 Flow Rate . Vital Sign Comment: EKG Rhythm: Sinus Tachycardia Rhythm change?: N Notified?: Courtney Paige MD Response: Message left await call Latest Hassan Fall Score: 50 Fall Risk: High Risk Safety Measures: Call light Within Reach, Bed Alarm Zone 3, Side Rails Side Rails x3, Bed position Low and Locked. Fall Precautions: Yellow Socks Yellow Gown Door Sign Patient Fall Education Report given to [maria e MATHEW.
--- NOTE | 2020-04-15 08:24 | Diagnostic Imaging Report ---
EXAM: XR Chest, 1 View CLINICAL HISTORY: INFECT TECHNIQUE: Frontal view of the chest. COMPARISON: 02/11/21. FINDINGS: Lungs: There is been no significant change in mild to moderate patchy diffuse bilateral alveolar infiltrates which are most prominent in the lung bases. Pleural space: Unremarkable. No pneumothorax. Heart: Unremarkable. No cardiomegaly. Mediastinum: Unremarkable. Bones/joints: Unremarkable. Tubes, lines and devices: There is an endotracheal tube, right-sided PICC line and NG tube in good position. IMPRESSION: There is been no significant change in mild to moderate patchy diffuse bilateral alveolar infiltrates which are most prominent in the lung bases.
--- NOTE | 2020-04-15 08:30 | NUR ---
NURSE NOTES: Pt. in bed, sedated but response to tactile stimuli. No s/sx of distress. ETT in placed with vent setting AC18/VT750/Fi O2 of 80%/P5. No grimacing noted. HOB elevated at all times. On OGT in placed patent/intact running Glucerna 1.5 at 50cc/hr. Rectal tube in placed patent/intact draining greenish liquid output. F/C in placed patent/intact draining jeff colored urine. PICC line at right upper arm in placed patent/intact. Bed in low position, locked. Call light within reach. Will cont. to monitor.
[2020-04-15] MEDS: Solu-MEDROL 40mg Inj IVP SCH ×2 (08:45→21:00)
[2020-04-15] MEDS: Pantoprazole Inj IVP SCH ×2 (08:46→21:00)
[2020-04-15] MEDS: Enoxaparin 80mg Inj SUBQ SCH ×2 (08:47→21:00)
--- NOTE | 2020-04-15 10:02 | Pulmonology Progress Note ---
Subjective ROS Limited/Unobtainable: Yes Interval Events: Intubated 03/28/20 Constitutional: Reports: other - no pressors ; Denies: fever HEENT: Repors: no symptoms Respiratory: Reports: dry cough, shortness of breath Cardiovascular: Reports: no symptoms Gastrointestinal/Abdominal: Denies: nausea, vomiting, diarrhea Psychiatric: Reports: other - NA Skin: Denies: rash Musculoskeletal: Reports: other - NA Allergies: Coded Allergies: No Known Allergies (Unverified , 02/05/20) Objective Last 24 Hour Vital Signs Date Time Temp Pulse Resp B/P (MAP) Pulse Ox O2 Delivery O2 Flow Rate FiO2 04/15/20 09:00 72 18 138/71 (93) 99 04/15/20 08:00 100 04/15/20 08:00 82 04/15/20 08:00 99.6 65 18 108/64 (79) 100 04/15/20 07:39 21 100/60 Mechanical Ventilator 100 04/15/20 07:00 21 101/60 Mechanical Ventilator 100 04/15/20 07:00 72 18 127/65 (85) 99 04/15/20 06:39 21 120/70 Mechanical Ventilator 100 04/15/20 06:39 21 101/60 04/15/20 06:00 21 105/60 Mechanical Ventilator 100 04/15/20 06:00 73 18 136/76 (96) 100 04/15/20 05:39 21 149/85 Mechanical Ventilator 100 04/15/20 05:00 76 18 143/78 (99) 100 04/15/20 05:00 21 138/52 Mechanical Ventilator 100 04/15/20 04:39 21 138/62 Mechanical Ventilator 100 04/15/20 04:30 99.0 80 19 143/78 (99) 100 04/15/20 04:13 23 150/62 Mechanical Ventilator 100 04/15/20 04:00 Mechanical Ventilator 04/15/20 04:00 100 04/15/20 04:00 77 04/15/20 04:00 23 150/81 Mechanical Ventilator 100 04/15/20 04:00 84 19 148/79 (102) 100 04/15/20 03:39 23 140/62 Mechanical Ventilator 100 04/15/20 03:30 88 18 150/81 (104) 100 04/15/20 03:19 23 150/80 Mechanical Ventilator 100 04/15/20 03:10 75 04/15/20 03:00 90 19 150/80 (103) 99 04/15/20 03:00 23 138/65 Mechanical Ventilator 100 04/15/20 02:39 20 150/80 Mechanical Ventilator 100 04/15/20 02:33 81 18 90 04/15/20 02:30 98 21 160/79 (106) 99 04/15/20 02:00 98 22 138/76 (96) 98 04/15/20 02:00 22 160/79 Mechanical Ventilator 100 04/15/20 01:39 23 130/76 Mechanical Ventilator 100 04/15/20 01:30 98 25 167/84 (111) 98 04/15/20 01:00 104 20 190/85 (120) 97 04/15/20 01:00 21 156/73 Mechanical Ventilator 100 04/15/20 00:39 23 138/76 Mechanical Ventilator 100 04/15/20 00:30 97 20 141/73 (95) 97 04/15/20 00:00 Mechanical Ventilator 04/15/20 00:00 99.0 109 21 163/77 (105) 96 04/15/20 00:00 21 141/73 Mechanical Ventilator 100 04/15/20 00:00 100 04/14/20 23:39 24 163/77 Mechanical Ventilator 100 04/14/20 23:30 107 21 154/78 (103) 92 04/14/20 23:24 26 158/85 Mechanical Ventilator 100 04/14/20 23:09 28 188/82 Mechanical Ventilator 04/14/20 23:00 119 28 202/80 (120) 85 04/14/20 23:00 21 156/73 Mechanical Ventilator 100 04/14/20 22:54 28 200/88 Mechanical Ventilator 100 04/14/20 22:50 111 28 220/90 (133) 84 04/14/20 22:45 180/80 04/14/20 22:43 105 25 211/88 (129) 80 04/14/20 22:39 26 202/80 Mechanical Ventilator 100 04/14/20 22:36 85 23 90 04/14/20 22:30 94 23 187/88 (121) 83 04/14/20 22:24 26 202/80 Mechanical Ventilator 100 04/14/20 22:09 25 211/88 Mechanical Ventilator 100 04/14/20 22:00 75 18 138/68 (91) 92 04/14/20 22:00 20 150/80 Mechanical Ventilator 100 04/14/20 21:54 18 138/68 Mechanical Ventilator 100 04/14/20 21:39 25 138/68 Mechanical Ventilator 100 04/14/20 21:30 73 18 125/61 (82) 92 04/14/20 21:24 18 129/66 Mechanical Ventilator 100 04/14/20 21:09 21 138/73 Mechanical Ventilator 15.0 90 04/14/20 21:00 20 129/66 Mechanical Ventilator 100 04/14/20 21:00 66 18 120/61 (80) 91 04/14/20 20:30 70 18 129/66 (87) 92 04/14/20 20:00 73 04/14/20 20:00 18 120/66 Mechanical Ventilator 100 04/14/20 20:00 100 04/14/20 20:00 Mechanical Ventilator 04/14/20 20:00 98.6 76 18 143/70 (94) 93 04/14/20 19:30 73 18 136/74 (94) 93 04/14/20 19:11 88 21 90 04/14/20 19:00 18 129/66 Mechanical Ventilator 100 04/14/20 18:53 22 138/73 Mechanical Ventilator 100 04/14/20 18:00 18 136/68 Mechanical Ventilator 100 04/14/20 18:00 18 Mechanical Ventilator 100 04/14/20 18:00 77 18 136/68 (90) 91 04/14/20 17:00 100 24 155/77 (103) 79 04/14/20 17:00 24 155/77 Mechanical Ventilator 100 04/14/20 17:00 24 Mechanical Ventilator 100 04/14/20 16:45 19 140/65 Mechanical Ventilator 100 04/14/20 16:45 18 Mechanical Ventilator 100 04/14/20 16:30 98.1 99 24 140/65 (90) 80 04/14/20 16:30 19 140/65 Mechanical Ventilator 100 04/14/20 16:30 18 Mechanical Ventilator 100 04/14/20 16:15 18 132/61 Mechanical Ventilator 100 04/14/20 16:15 18 Mechanical Ventilator 100 04/14/20 16:00 75 04/14/20 16:00 90 04/14/20 16:00 18 132/61 Mechanical Ventilator 90 04/14/20 16:00 18 Mechanical Ventilator 90 04/14/20 16:00 84 18 132/61 (84) 96 04/14/20 16:00 Mechanical Ventilator 04/14/20 15:30 83 17 142/64 (90) 96 04/14/20 15:22 68 18 90 04/14/20 15:00 63 18 118/61 (80) 98 04/14/20 15:00 18 118/61 Mechanical Ventilator 90 04/14/20 15:00 18 Mechanical Ventilator 90 04/14/20 14:30 61 18 122/62 (82) 98 04/14/20 14:00 60 18 117/63 (81) 98 04/14/20 14:00 18 117/63 Mechanical Ventilator 90 04/14/20 14:00 18 Mechanical Ventilator 90 04/14/20 13:40 18 Mechanical Ventilator 90 04/14/20 13:30 59 18 110/58 (75) 98 04/14/20 13:00 18 111/57 Mechanical Ventilator 90 04/14/20 13:00 18 Mechanical Ventilator 90 04/14/20 13:00 60 18 111/57 (75) 98 04/14/20 12:30 60 18 116/59 (78) 97 04/14/20 12:00 Mechanical Ventilator 04/14/20 12:00 98.0 60 18 109/58 (75) 97 04/14/20 12:00 18 109/58 Mechanical Ventilator 90 04/14/20 12:00 18 Mechanical Ventilator 90 04/14/20 12:00 90 04/14/20 12:00 60 04/14/20 12:00 60 18 109/58 (75) 97 04/14/20 11:30 61 18 111/57 (75) 97 04/14/20 11:05 61 18 90 04/14/20 11:00 62 18 113/55 (74) 95 04/14/20 11:00 18 113/55 Mechanical Ventilator 90 04/14/20 11:00 18 Mechanical Ventilator 90 04/14/20 10:33 18 107/59 Mechanical Ventilator 90 04/14/20 10:30 63 18 107/59 (75) 95 Intake and Output 04/14/20 04/15/20 19:00 07:00 Intake Total 1698.600 ml 1065.5 ml Output Total 1270 ml 1230 ml Balance 428.600 ml -164.5 ml Free Water 150 ml IV Total 948.600 ml 715.5 ml Tube Feeding 600 ml 350 ml Output Urine Total 1270 ml 1150 ml Stool Total 80 ml General Appearance: WD/WN, no acute distress HEENT: normocephalic, atraumatic Respiratory: chest wall non-tender Cardiovascular: normal rate, regular rhythm Abdomen: normal bowel sounds, soft, non tender, other - obese Microbiology Date/Time Source Procedure Growth Status 04/14/20 16:35 Stool Clostridium difficile Toxin Assay - Final Complete Laboratory Tests 04/14/20 22:50: Arterial Blood pH 7.414, Arterial Blood Partial Pressure CO2 53.4H, Arterial Blood Partial Pressure O2 43.6*L, Arterial Blood HCO3 33.4H, Arterial Blood Oxygen Saturation 79.2*L, Arterial Blood Base Excess 7.5H, Shemar Test Positive 04/15/20 03:20: White Blood Count 8.6#, Red Blood Count 3.57L, Hemoglobin 10.2L, Hematocrit 32.5L, Mean Corpuscular Volume 91, Mean Corpuscular Hemoglobin 28.5, Mean Corpuscular Hemoglobin Concent 31.3L, Red Cell Distribution Width 17.6H, Platelet Count 223, Mean Platelet Volume 7.3, Neutrophils (%) (Auto) , Lymphocytes (%) (Auto) , Monocytes (%) (Auto) , Eosinophils (%) (Auto) , Basophils (%) (Auto) , Differential Total Cells Counted 100, Neutrophils % (Manual) 89H, Lymphocytes % (Manual) 7L, Monocytes % (Manual) 2, Eosinophils % (Manual) 0, Basophils % (Manual) 0, Band Neutrophils 2, Platelet Estimate Adequate, Platelet Morphology Normal, Polychromasia 1+, Anisocytosis 1+, Sodium Level 143, Potassium Level 4.6, Chloride Level 103, Carbon Dioxide Level 34H, Anion Gap 6, Blood Urea Nitrogen 18, Creatinine 0.4L, Estimat Glomerular Filtration Rate > 60, Glucose Level 115H, Calcium Level 8.3L, Total Bilirubin 0.5, Aspartate Amino Transf (AST/SGOT) 31, Alanine Aminotransferase (ALT/SGPT) 170H, Alkaline Phosphatase 295H, Total Protein 5.4L, Albumin 1.9L, Globulin 3.5, Albumin/Globulin Ratio 0.5L Current Medications Medications (Trade) Dose Ordered Sig/Dennis Route PRN Reason Start Time Stop Time Status Last Admin Dose Admin Acetaminophen (Tylenol) 650 mg Q4H PRN ORAL Temp >100.5 04/13/20 00:30 05/13/20 00:29 04/13/20 01:30 Bisacodyl (Dulcolax) 10 mg Q12H PRN RECTAL Constipation 03/18/20 16:45 06/16/20 16:44 Chlorhexidine Gluconate (Marlen-Hex 2%) 1 applic DAILY@2000 TOPIC 03/30/20 20:00 06/28/20 19:59 04/14/20 20:25 Dextrose (Dextrose 50%) 25 ml Q30M PRN IV Hypoglycemia 03/29/20 20:45 06/27/20 20:44 Dextrose (Dextrose 50%) 50 ml Q30M PRN IV Hypoglycemia 03/29/20 20:45 06/27/20 20:44 Enoxaparin Sodium (Lovenox) 80 mg EVERY 12 HOURS SUBQ 04/06/20 21:00 07/05/20 20:59 04/15/20 08:47 Fentanyl Citrate 250 ml @ 1 mls/hr Q24H IV 04/14/20 00:15 04/16/20 00:14 04/15/20 03:19 Furosemide (Lasix) 20 mg DAILY IV 04/12/20 11:00 05/12/20 10:59 04/15/20 08:46 Hydralazine HCl (Apresoline) 10 mg Q4H PRN IV For High Blood Pressure 03/30/20 12:15 06/28/20 12:14 04/14/20 22:45 Insulin Aspart (NovoLOG) Q6HR SUBQ 03/30/20 00:00 06/28/20 00:00 04/14/20 06:08 Labetalol HCl (Normodyne) 10 mg Q4H PRN IV sbp greater tahtn 160 03/28/20 17:30 04/27/20 17:29 Methylprednisolone Sodium Succinate (Solu-MEDROL) 20 mg Q12HR IVP 04/12/20 21:00 06/20/20 20:59 04/15/20 08:45 Metoclopramide HCl (Reglan) 10 mg Q6H IVP 03/30/20 15:00 04/29/20 14:59 04/15/20 08:45 Micafungin Sodium 100 mg/Sodium Chloride 100 ml @ 100 mls/hr Q24H IVPB 04/09/20 15:00 04/22/20 23:59 04/14/20 14:53 Midazolam HCl 200 ml @ 0 mls/hr Q24H PRN IV To Patient Comfort 04/14/20 19:00 04/15/20 20:59 04/15/20 04:13 Pantoprazole (Protonix) 40 mg EVERY 12 HOURS IVP 04/01/20 21:00 05/01/20 20:59 04/15/20 08:46 Piperacillin Sod/ Tazobactam Sod 3.375 gm/Dextrose 110 ml @ 27.5 mls/hr EVERY 8 HOURS IVPB 04/14/20 14:00 04/19/20 13:59 04/15/20 06:07 Trimethoprim/ Sulfamethoxazole (Bactrim-DS) 1 tab Q24H ORAL 03/29/20 17:00 05/10/20 16:59 04/14/20 17:45 Vancomycin HCl (Vanco pharmacy to dose) 1 ea DAILY PRN MISC Per rx protocol 04/11/20 17:30 05/11/20 17:29 Vancomycin HCl 1 gm/Sodium Chloride 275 ml @ 183.708 mls/hr Q8H IVPB 04/12/20 18:30 04/17/20 18:29 04/15/20 02:16 Assessment/Plan Assessment/Plan Assessment/Plan 1.COVID-19 pneumonia. - Completed specific therapies - On solumedrol 2. DVT ppx - on lovenox 3. Hypertension - no longer on meds - Not requiring pressors 4. Leukocytosis; - ID following - On abx - Budding yeast on blood CS 5. Elevated LFT - positive Hep C; treated in the past with IF 6. Respiratory failure -Intubated 03/28/20 -Family aware - Prognosis guarded - Vt 750; rate 18 -On sedation 7. Discussed with cardiology -No evidence for cardiac dysfunction or PE -tachycardic; will increase sedation 8. AMS -back on sedation - has apparent left arm paresis - Will consider CT brain when more stable S/p new PICC line On abx Slowly improving oxygenation Noted left upper extremity swelling. Has DVT; on full dose Lovenox Continue sedation, DC propofol given high triglycerides. Continue fentanyl and Versed. Saturations plummeted 04/12/20 when patient became agitated Now fully sedated on 90% FiO2 ; PEEP 5 Intubated now for 2 weeks Discussed tracheostomy with surgery Will initiate diuresis CXR shows fine interstitial edema John Mata MD Apr 15, 2020 10:02
[2020-04-15] MEDS ORDERED: NS 275ml ONE (10:06)
[2020-04-15] MEDS ORDERED: 1/2 NS 1000ml IV ONE (10:06)
[2020-04-15] MEDS ORDERED: Tubing IV Secondary IV ONE (10:06)
--- NOTE | 2020-04-15 10:20 | NUR ---
NURSE NOTES: Seen by Dr. Mata with new orders for labs. Orders noted and carried out.
--- NOTE | 2020-04-15 11:15 | NUR ---
NURSE NOTES: Pt. arousable. No s/sx of distress. Turned and repositioned. Oral care rendered.
--- NOTE | 2020-04-15 12:20 | Nephrology Progress Note ---
Assessment/Plan Problem List: (1) Dehydration (2) Electrolyte imbalance (3) COVID-19 virus infection (4) Pneumonia (5) DMII (diabetes mellitus, type 2) (6) Protein malnutrition Assessment Azotemia, hypernatremia Hypoalbuminemia Staff Otilia bacteremia COVID-19 isolation, pneumonia, bilateral infiltrate Hypertension Diabetes mellitus History of smoking Plan April 15: Labs reviewed. Electrolytes and renal parameters stable. Patient full code. Continues to be intubated on ventilator. April 14: Status quo. Labs reviewed. Remains intubated on ventilator. Full code. Continue per consultants. April 13: Status quo. Labs reviewed. Renal parameters electrolytes stable. Continue per current treatment plan. April 12: On higher FiO2. Will resume Lasix daily. Continue to monitor electrolytes and renal parameters. Per consultants. April 11: FiO2 went up to 85%. Renal parameters and electrolytes reasonably well-maintained. Will monitor serum potassium. Will give IV Lasix. April 10: Status quo. Labs reviewed. Remains intubated on ventilator with FiO2 of 65%. Remains full code. Stable from renal standpoint to view. Repeat vitamin D level on April 08 pending April 09: Status quo. Labs reviewed. Stable from renal standpoint of view. Continue per consultants. April 08: Discussed with RN. Labs reviewed. Clinically improving. Requires lower PEEP. Continue per pulmonary. Continue to monitor renal parameters. April 07: Remains full code and on ventilator. Labs reviewed. Renal parameters and electrolytes stable. Continue per consultants. Blood pressure marginally improved. April 06: Full code. On ventilator. Blood pressure 80-90 systolic. IV Lasix discontinued. Free water through tube feeding ordered. Continue to monitor electrolytes and serum sodium. Down on fentanyl as possible. Discussed with PRIYANKA Brown. Clonidine patch discontinued. April 05: Status quo. Remains full code. Remains intubated. Labs reviewed. Renal parameters stable. Serum sodium 150 unchanged. Continue per consultants. April 04: Remains intubated and on ventilator. Remains full code. Labs reviewed. Serum sodium 150 unchanged. Renal parameters stable. Continue per ID and pulmonary. April 03: Intubated. On ventilator. Full code. Labs reviewed. Serum sodium 150 unchanged. Continue to monitor renal parameters. Continue per pulmonary and ID. April 02: Full code. On ventilator. Discussed with RN. Serum sodium sl ightly higher. Will cut down on IV Lasix. Continue per consultants. Continue to monitor renal parameters and electrolytes. April 01: Full code. Remains on ventilator. Labs reviewed. Stable from renal standpoint of view. Continue per consultants. March 31: Full code . Remains intubated on ventilator. Labs reviewed. Patient appears toxic. Discussed with RN. Maintenance IV discontinued. Medication list reviewed. Blood pressure medication stopped due to low blood pressure. Levemir insulin stopped. Continue monitor blood sugar and sliding scale insulin. March 30: Full code. On ventilator. Labs reviewed. Clonidine patch dose increased. Lasix increased. 3% saline 1 time ordered. Continue to monitor electrolytes and renal parameters. March 29: Remains full code. On mechanical ventilation. On tube feeding. Will DC TPN. Will start on maintenance IV fluid. Continue to monitor renal parameters. March 28: On BiPAP. Full code. On TPN. Labs reviewed. Discussed with pharmacy. Continue as is. Watch serum potassium. March 27: Remains on BiPAP. No chemistry panel done today. Full code. On TPN. Will check lab tomorrow. March 26: Remains on BiPAP. Remains on TPN. Labs reviewed. Electrolytes and chemistries within normal limits. Continue as is. March 25: Remains on TPN. Labs reviewed. Discussed with pharmacy. Change IV Protonix to p.o. Continue 3% saline infusion with Lasix. Patient full code. March 24: Continue to be on TPN. Labs are reviewed. Aim to collect electrol ytes. Discussed with pharmacy. Continue current consultants. March 23: Continues to be on TPN. Labs reviewed. Electrolytes and chemistries all acceptable. Discussed with pharmacy. Continue current management. March 22: On TPN. Labs reviewed. Low sodium noted. 3% saline to be continued. Continue to monitor electrolytes. Discussed with pharmacy. March 21: On TPN. Labs reviewed. Continue 3% saline and Lasix for mild hyponatremia. Continue TPN as these. Discussed with pharmacy. March 20: Remains on TPN. Labs reviewed. Serum sodium higher on IV Lasix and 3% saline infusion. Continue TPN as is. Continue to monitor renal parameters and electrolytes. Discussed with Dr. Mata March 19: Remains on TPN. Labs reviewed. Serum sodium 128. Will give 3% saline with IV Lasix. Continue to monitor electrolytes. No change in TPN composition. Discussed with pharmacy. March 18: Remains on TPN. Labs reviewed. Discussed with pharmacist. Will give 3 doses of IV Lasix 20 mg every 8 hours. Continue to monitor serum sodium electrolytes uric acid. White blood cells down. Continue per consultants. March 17: On TPN. Labs reviewed. Discussed with pharmacist. Sodium content increase. Continue to monitor CMP. Patient continues to have leukocytosis. March 16: On TPN. Labs reviewed. Discussed with pharmacist. Appropriate changes made. Continue to monitor electrolytes. March 15: Remains on TPN. Labs reviewed. Discussed with pharmacist. Continue per current management. March 14: Remains on TPN. Labs reviewed, stable. Vitamin D level low, replacement ordered. Continue to monitor electrolytes and renal parameters. March 13: Patient remains on TPN. Discussed with pharmacist. TPN's sodium content adjusted. Labs reviewed. Continue to monitor electrolytes. Blood pressure remains stable. Continue per consultants. March 12: Patient on TPN. Labs reviewed. CPK remains elevated. Abnormal electrolytes and high blood sugar discussed with pharmacist and TPN adjusted. Continue to monitor labs. Oral Protonix added. Ibuprofen discontinued. Can continue to monitor electrolytes and chemistries. Levemir for high blood sugar added. March 11: Patient on TPN. Labs as of 11:15 AM is still pending. Continue per current treatment plan. Will check labs and adjust TPN as needed. Continue per consultants. March 10: Patient on TPN. Labs reviewed. Electrolytes overall stable. CPK is elevated. Will monitor electrolyte, CPK level, lipid panel. Continue per consultants. Discussed with pharmacist. Discussed with RN. Nutritional evaluation noted. Previously: D5W 100 cc an hour Monitor electrolytes renal parameters TPN and Intralipid ordered Will follow Continue per consultants Dietary consult requested Subjective ROS Limited/Unobtainable: Yes Objective Objective Last 24 Hour Vital Signs Date Time Temp Pulse Resp B/P (MAP) Pulse Ox O2 Delivery O2 Flow Rate FiO2 04/15/20 12:12 23 118/92 Endotracheal Tube 80 04/15/20 11:24 67 18 90 04/15/20 11:00 18 112/62 Endotracheal Tube 80 04/15/20 11:00 67 18 112/62 (79) 98 04/15/20 10:39 18 118/61 Endotracheal Tube 80 04/15/20 10:00 71 18 118/61 (80) 97 04/15/20 10:00 18 118/61 Endotracheal Tube 80 04/15/20 09:39 18 138/71 Endotracheal Tube 80 04/15/20 09:00 18 138/71 Endotracheal Tube 80 04/15/20 09:00 72 18 138/71 (93) 99 04/15/20 08:39 18 108/64 Endotracheal Tube 80 04/15/20 08:00 100 04/15/20 08:00 Mechanical Ventilator 04/15/20 08:00 18 108/64 Endotracheal Tube 80 04/15/20 08:00 82 04/15/20 08:00 99.6 65 18 108/64 (79) 100 04/15/20 07:39 21 100/60 Mechanical Ventilator 100 04/15/20 07:34 65 18 90 04/15/20 07:00 21 101/60 Mechanical Ventilator 100 04/15/20 07:00 72 18 127/65 (85) 99 04/15/20 06:39 21 120/70 Mechanical Ventilator 100 04/15/20 06:39 21 101/60 04/15/20 06:00 21 105/60 Mechanical Ventilator 100 04/15/20 06:00 73 18 136/76 (96) 100 04/15/20 05:39 21 149/85 Mechanical Ventilator 100 04/15/20 05:00 76 18 143/78 (99) 100 04/15/20 05:00 21 138/52 Mechanical Ventilator 100 04/15/20 04:39 21 138/62 Mechanical Ventilator 100 04/15/20 04:30 99.0 80 19 143/78 (99) 100 04/15/20 04:13 23 150/62 Mechanical Ventilator 100 04/15/20 04:00 Mechanical Ventilator 04/15/20 04:00 100 04/15/20 04:00 77 04/15/20 04:00 23 150/81 Mechanical Ventilator 100 04/15/20 04:00 84 19 148/79 (102) 100 04/15/20 03:39 23 140/62 Mechanical Ventilator 100 04/15/20 03:30 88 18 150/81 (104) 100 04/15/20 03:19 23 150/80 Mechanical Ventilator 100 04/15/20 03:10 75 04/15/20 03:00 90 19 150/80 (103) 99 04/15/20 03:00 23 138/65 Mechanical Ventilator 100 04/15/20 02:39 20 150/80 Mechanical Ventilator 100 04/15/20 02:33 81 18 90 04/15/20 02:30 98 21 160/79 (106) 99 04/15/20 02:00 98 22 138/76 (96) 98 04/15/20 02:00 22 160/79 Mechanical Ventilator 100 04/15/20 01:39 23 130/76 Mechanical Ventilator 100 04/15/20 01:30 98 25 167/84 (111) 98 04/15/20 01:00 104 20 190/85 (120) 97 04/15/20 01:00 21 156/73 Mechanical Ventilator 100 04/15/20 00:39 23 138/76 Mechanical Ventilator 100 04/15/20 00:30 97 20 141/73 (95) 97 04/15/20 00:00 Mechanical Ventilator 04/15/20 00:00 99.0 109 21 163/77 (105) 96 04/15/20 00:00 21 141/73 Mechanical Ventilator 100 04/15/20 00:00 100 04/14/20 23:39 24 163/77 Mechanical Ventilator 100 04/14/20 23:30 107 21 154/78 (103) 92 04/14/20 23:24 26 158/85 Mechanical Ventilator 100 04/14/20 23:09 28 188/82 Mechanical Ventilator 04/14/20 23:00 119 28 202/80 (120) 85 04/14/20 23:00 21 156/73 Mechanical Ventilator 100 04/14/20 22:54 28 200/88 Mechanical Ventilator 100 04/14/20 22:50 111 28 220/90 (133) 84 04/14/20 22:45 180/80 04/14/20 22:43 105 25 211/88 (129) 80 04/14/20 22:39 26 202/80 Mechanical Ventilator 100 04/14/20 22:36 85 23 90 04/14/20 22:30 94 23 187/88 (121) 83 04/14/20 22:24 26 202/80 Mechanical Ventilator 100 04/14/20 22:09 25 211/88 Mechanical Ventilator 100 04/14/20 22:00 75 18 138/68 (91) 92 04/14/20 22:00 20 150/80 Mechanical Ventilator 100 04/14/20 21:54 18 138/68 Mechanical Ventilator 100 04/14/20 21:39 25 138/68 Mechanical Ventilator 100 04/14/20 21:30 73 18 125/61 (82) 92 04/14/20 21:24 18 129/66 Mechanical Ventilator 100 04/14/20 21:09 21 138/73 Mechanical Ventilator 15.0 90 04/14/20 21:00 20 129/66 Mechanical Ventilator 100 04/14/20 21:00 66 18 120/61 (80) 91 04/14/20 20:30 70 18 129/66 (87) 92 04/14/20 20:00 73 04/14/20 20:00 18 120/66 Mechanical Ventilator 100 04/14/20 20:00 100 04/14/20 20:00 Mechanical Ventilator 04/14/20 20:00 98.6 76 18 143/70 (94) 93 04/14/20 19:30 73 18 136/74 (94) 93 04/14/20 19:11 88 21 90 04/14/20 19:00 18 129/66 Mechanical Ventilator 100 04/14/20 18:53 22 138/73 Mechanical Ventilator 100 04/14/20 18:00 18 136/68 Mechanical Ventilator 100 04/14/20 18:00 18 Mechanical Ventilator 100 04/14/20 18:00 77 18 136/68 (90) 91 04/14/20 17:00 100 24 155/77 (103) 79 04/14/20 17:00 24 155/77 Mechanical Ventilator 100 04/14/20 17:00 24 Mechanical Ventilator 100 04/14/20 16:45 19 140/65 Mechanical Ventilator 100 04/14/20 16:45 18 Mechanical Ventilator 100 04/14/20 16:30 98.1 99 24 140/65 (90) 80 04/14/20 16:30 19 140/65 Mechanical Ventilator 100 04/14/20 16:30 18 Mechanical Ventilator 100 04/14/20 16:15 18 132/61 Mechanical Ventilator 100 04/14/20 16:15 18 Mechanical Ventilator 100 04/14/20 16:00 75 04/14/20 16:00 90 04/14/20 16:00 18 132/61 Mechanical Ventilator 90 04/14/20 16:00 18 Mechanical Ventilator 90 04/14/20 16:00 84 18 132/61 (84) 96 04/14/20 16:00 Mechanical Ventilator 04/14/20 15:30 83 17 142/64 (90) 96 04/14/20 15:22 68 18 90 04/14/20 15:00 63 18 118/61 (80) 98 04/14/20 15:00 18 118/61 Mechanical Ventilator 90 04/14/20 15:00 18 Mechanical Ventilator 90 04/14/20 14:30 61 18 122/62 (82) 98 04/14/20 14:00 60 18 117/63 (81) 98 04/14/20 14:00 18 117/63 Mechanical Ventilator 90 04/14/20 14:00 18 Mechanical Ventilator 90 04/14/20 13:40 18 Mechanical Ventilator 90 04/14/20 13:30 59 18 110/58 (75) 98 04/14/20 13:00 18 111/57 Mechanical Ventilator 90 04/14/20 13:00 18 Mechanical Ventilator 90 04/14/20 13:00 60 18 111/57 (75) 98 04/14/20 12:30 60 18 116/59 (78) 97 Intake and Output 04/14/20 04/15/20 19:00 07:00 Intake Total 1698.600 ml 1065.5 ml Output Total 1270 ml 1230 ml Balance 428.600 ml -164.5 ml Free Water 150 ml IV Total 948.600 ml 715.5 ml Tube Feeding 600 ml 350 ml Output Urine Total 1270 ml 1150 ml Stool Total 80 ml Current Medications Medications (Trade) Dose Ordered Sig/Dennis Route PRN Reason Start Time Stop Time Status Last Admin Dose Admin Acetaminophen (Tylenol) 650 mg Q4H PRN ORAL Temp >100.5 04/13/20 00:30 05/13/20 00:29 04/13/20 01:30 Bisacodyl (Dulcolax) 10 mg Q12H PRN RECTAL Constipation 03/18/20 16:45 06/16/20 16:44 Chlorhexidine Gluconate (Marlen-Hex 2%) 1 applic DAILY@1999 TOPIC 03/30/20 20:00 06/28/20 19:59 04/14/20 20:25 Dextrose (Dextrose 50%) 25 ml Q30M PRN IV Hypoglycemia 03/29/20 20:45 06/27/20 20:44 Dextrose (Dextrose 50%) 50 ml Q30M PRN IV Hypoglycemia 03/29/20 20:45 06/27/20 20:44 Enoxaparin Sodium (Lovenox) 80 mg EVERY 12 HOURS SUBQ 04/06/20 21:00 07/05/20 20:59 04/15/20 08:47 Fentanyl Citrate 250 ml @ 1 mls/hr Q24H IV 04/14/20 00:15 04/16/20 00:14 04/15/20 03:19 Furosemide 100 mg/ Dextrose 100 ml @ 7.5 mls/hr [id number] IV 04/15/20 11:00 05/15/20 10:59 04/15/20 11:14 Hydralazine HCl (Apresoline) 10 mg Q4H PRN IV For High Blood Pressure 03/30/20 12:15 06/28/20 12:14 04/14/20 22:45 Insulin Aspart (NovoLOG) Q6HR SUBQ 03/30/20 00:00 06/28/20 00:00 04/14/20 06:08 Labetalol HCl (Normodyne) 10 mg Q4H PRN IV sbp greater tahtn 160 03/28/20 17:30 04/27/20 17:29 Methylprednisolone Sodium Succinate (Solu-MEDROL) 20 mg Q12HR IVP 04/12/20 21:00 06/20/20 20:59 04/15/20 08:45 Metoclopramide HCl (Reglan) 10 mg Q6H IVP 03/30/20 15:00 04/29/20 14:59 04/15/20 08:45 Micafungin Sodium 100 mg/Sodium Chloride 100 ml @ 100 mls/hr Q24H IVPB 04/09/20 15:00 04/22/20 23:59 04/14/20 14:53 Midazolam HCl 200 ml @ 0 mls/hr Q24H PRN IV To Patient Comfort 04/14/20 19:00 04/15/20 20:59 04/15/20 12:12 Pantoprazole (Protonix) 40 mg EVERY 12 HOURS IVP 04/01/20 21:00 05/01/20 20:59 04/15/20 08:46 Piperacillin Sod/ Tazobactam Sod 3.375 gm/Dextrose 110 ml @ 27.5 mls/hr EVERY 8 HOURS IVPB 04/14/20 14:00 04/19/20 13:59 04/15/20 06:07 Trimethoprim/ Sulfamethoxazole (Bactrim-DS) 1 tab Q24H ORAL 03/29/20 17:00 05/10/20 16:59 04/14/20 17:45 Vancomycin HCl (Vanco pharmacy to dose) 1 ea DAILY PRN MISC Per rx protocol 04/11/20 17:30 05/11/20 17:29 Vancomycin HCl 1 gm/Sodium Chloride 275 ml @ 183.708 mls/hr Q8H IVPB 04/12/20 18:30 04/17/20 18:29 04/15/20 10:39 Laboratory Tests 04/14/20 22:50: Arterial Blood pH 7.414, Arterial Blood Partial Pressure CO2 53.4H, Arterial Blood Partial Pressure O2 43.6*L, Arterial Blood HCO3 33.4H, Arterial Blood Oxygen Saturation 79.2*L, Arterial Blood Base Excess 7.5H, Shemar Test Positive 04/15/20 03:20: White Blood Count 8.6#, Red Blood Count 3.57L, Hemoglobin 10.2L, Hematocrit 32.5L, Mean Corpuscular Volume 91, Mean Corpuscular Hemoglobin 28.5, Mean Corpuscular Hemoglobin Concent 31.3L, Red Cell Distribution Width 17.6H, Platelet Count 223, Mean Platelet Volume 7.3, Neutrophils (%) (Auto) , Lymphocytes (%) (Auto) , Monocytes (%) (Auto) , Eosinophils (%) (Auto) , Basophils (%) (Auto) , Differential Total Cells Counted 100, Neutrophils % (Manual) 89H, Lymphocytes % (Manual) 7L, Monocytes % (Manual) 2, Eosinophils % (Manual) 0, Basophils % (Manual) 0, Band Neutrophils 2, Platelet Estimate Adequate, Platelet Morphology Normal, Polychromasia 1+, Anisocytosis 1+, Sodium Level 143, Potassium Level 4.6, Chloride Level 103, Carbon Dioxide Level 34H, Anion Gap 6, Blood Urea Nitrogen 18, Creatinine 0.4L, Estimat Glomerular Filtration Rate > 60, Glucose Level 115H, Calcium Level 8.3L, Total Bilirubin 0.5, Aspartate Amino Transf (AST/SGOT) 31, Alanine Aminotransferase (ALT/SGPT) 170H, Alkaline Phosphatase 295H, Total Protein 5.4L, Albumin 1.9L, Globulin 3.5, Albumin/Globulin Ratio 0.5L Height (Feet): 5 Height (Inches): 10.00 Weight (Pounds): 240 General Appearance: no apparent distress Cardiovascular: normal rate Respiratory/Chest: decreased breath sounds Abdomen: distended Rubin Cooper MD Apr 15, 2020 12:20
--- NOTE | 2020-04-15 12:33 | Surgery Progress Note ---
Surgery Progress Note Subjective Additional Comments no acute events Objective Last 24 Hour Vital Signs Date Time Temp Pulse Resp B/P (MAP) Pulse Ox O2 Delivery O2 Flow Rate FiO2 04/15/20 12:12 23 118/92 Endotracheal Tube 80 04/15/20 12:00 98.3 119 23 201/89 (126) 90 04/15/20 11:24 67 18 90 04/15/20 11:00 18 112/62 Endotracheal Tube 80 04/15/20 11:00 67 18 112/62 (79) 98 04/15/20 10:39 18 118/61 Endotracheal Tube 80 04/15/20 10:00 71 18 118/61 (80) 97 04/15/20 10:00 18 118/61 Endotracheal Tube 80 04/15/20 09:39 18 138/71 Endotracheal Tube 80 04/15/20 09:00 18 138/71 Endotracheal Tube 80 04/15/20 09:00 72 18 138/71 (93) 99 04/15/20 08:39 18 108/64 Endotracheal Tube 80 04/15/20 08:00 100 04/15/20 08:00 Mechanical Ventilator 04/15/20 08:00 18 108/64 Endotracheal Tube 80 04/15/20 08:00 82 04/15/20 08:00 99.6 65 18 108/64 (79) 100 04/15/20 07:39 21 100/60 Mechanical Ventilator 100 04/15/20 07:34 65 18 90 04/15/20 07:00 21 101/60 Mechanical Ventilator 100 04/15/20 07:00 72 18 127/65 (85) 99 04/15/20 06:39 21 120/70 Mechanical Ventilator 100 04/15/20 06:39 21 101/60 04/15/20 06:00 21 105/60 Mechanical Ventilator 100 04/15/20 06:00 73 18 136/76 (96) 100 04/15/20 05:39 21 149/85 Mechanical Ventilator 100 04/15/20 05:00 76 18 143/78 (99) 100 04/15/20 05:00 21 138/52 Mechanical Ventilator 100 04/15/20 04:39 21 138/62 Mechanical Ventilator 100 04/15/20 04:30 99.0 80 19 143/78 (99) 100 04/15/20 04:13 23 150/62 Mechanical Ventilator 100 04/15/20 04:00 Mechanical Ventilator 04/15/20 04:00 100 04/15/20 04:00 77 04/15/20 04:00 23 150/81 Mechanical Ventilator 100 04/15/20 04:00 84 19 148/79 (102) 100 04/15/20 03:39 23 140/62 Mechanical Ventilator 100 04/15/20 03:30 88 18 150/81 (104) 100 04/15/20 03:19 23 150/80 Mechanical Ventilator 100 04/15/20 03:10 75 04/15/20 03:00 90 19 150/80 (103) 99 04/15/20 03:00 23 138/65 Mechanical Ventilator 100 04/15/20 02:39 20 150/80 Mechanical Ventilator 100 04/15/20 02:33 81 18 90 04/15/20 02:30 98 21 160/79 (106) 99 04/15/20 02:00 98 22 138/76 (96) 98 04/15/20 02:00 22 160/79 Mechanical Ventilator 100 04/15/20 01:39 23 130/76 Mechanical Ventilator 100 04/15/20 01:30 98 25 167/84 (111) 98 04/15/20 01:00 104 20 190/85 (120) 97 04/15/20 01:00 21 156/73 Mechanical Ventilator 100 04/15/20 00:39 23 138/76 Mechanical Ventilator 100 04/15/20 00:30 97 20 141/73 (95) 97 04/15/20 00:00 Mechanical Ventilator 04/15/20 00:00 99.0 109 21 163/77 (105) 96 04/15/20 00:00 21 141/73 Mechanical Ventilator 100 04/15/20 00:00 100 04/14/20 23:39 24 163/77 Mechanical Ventilator 100 04/14/20 23:30 107 21 154/78 (103) 92 04/14/20 23:24 26 158/85 Mechanical Ventilator 100 04/14/20 23:09 28 188/82 Mechanical Ventilator 04/14/20 23:00 119 28 202/80 (120) 85 04/14/20 23:00 21 156/73 Mechanical Ventilator 100 04/14/20 22:54 28 200/88 Mechanical Ventilator 100 04/14/20 22:50 111 28 220/90 (133) 84 04/14/20 22:45 180/80 2/12/21 22:43 105 25 211/88 (129) 80 04/14/20 22:39 26 202/80 Mechanical Ventilator 100 04/14/20 22:36 85 23 90 04/14/20 22:30 94 23 187/88 (121) 83 04/14/20 22:24 26 202/80 Mechanical Ventilator 100 04/14/20 22:09 25 211/88 Mechanical Ventilator 100 04/14/20 22:00 75 18 138/68 (91) 92 04/14/20 22:00 20 150/80 Mechanical Ventilator 100 04/14/20 21:54 18 138/68 Mechanical Ventilator 100 04/14/20 21:39 25 138/68 Mechanical Ventilator 100 04/14/20 21:30 73 18 125/61 (82) 92 04/14/20 21:24 18 129/66 Mechanical Ventilator 100 04/14/20 21:09 21 138/73 Mechanical Ventilator 15.0 90 04/14/20 21:00 20 129/66 Mechanical Ventilator 100 04/14/20 21:00 66 18 120/61 (80) 91 04/14/20 20:30 70 18 129/66 (87) 92 04/14/20 20:00 73 04/14/20 20:00 18 120/66 Mechanical Ventilator 100 04/14/20 20:00 100 04/14/20 20:00 Mechanical Ventilator 04/14/20 20:00 98.6 76 18 143/70 (94) 93 04/14/20 19:30 73 18 136/74 (94) 93 04/14/20 19:11 88 21 90 04/14/20 19:00 18 129/66 Mechanical Ventilator 100 04/14/20 18:53 22 138/73 Mechanical Ventilator 100 04/14/20 18:00 18 136/68 Mechanical Ventilator 100 04/14/20 18:00 18 Mechanical Ventilator 100 04/14/20 18:00 77 18 136/68 (90) 91 04/14/20 17:00 100 24 155/77 (103) 79 04/14/20 17:00 24 155/77 Mechanical Ventilator 100 04/14/20 17:00 24 Mechanical Ventilator 100 04/14/20 16:45 19 140/65 Mechanical Ventilator 100 04/14/20 16:45 18 Mechanical Ventilator 100 04/14/20 16:30 98.1 99 24 140/65 (90) 80 04/14/20 16:30 19 140/65 Mechanical Ventilator 100 04/14/20 16:30 18 Mechanical Ventilator 100 04/14/20 16:15 18 132/61 Mechanical Ventilator 100 04/14/20 16:15 18 Mechanical Ventilator 100 04/14/20 16:00 75 04/14/20 16:00 90 04/14/20 16:00 18 132/61 Mechanical Ventilator 90 04/14/20 16:00 18 Mechanical Ventilator 90 04/14/20 16:00 84 18 132/61 (84) 96 04/14/20 16:00 Mechanical Ventilator 04/14/20 15:30 83 17 142/64 (90) 96 04/14/20 15:22 68 18 90 04/14/20 15:00 63 18 118/61 (80) 98 04/14/20 15:00 18 118/61 Mechanical Ventilator 90 04/14/20 15:00 18 Mechanical Ventilator 90 04/14/20 14:30 61 18 122/62 (82) 98 04/14/20 14:00 60 18 117/63 (81) 98 04/14/20 14:00 18 117/63 Mechanical Ventilator 90 04/14/20 14:00 18 Mechanical Ventilator 90 04/14/20 13:40 18 Mechanical Ventilator 90 04/14/20 13:30 59 18 110/58 (75) 98 04/14/20 13:00 18 111/57 Mechanical Ventilator 90 04/14/20 13:00 18 Mechanical Ventilator 90 04/14/20 13:00 60 18 111/57 (75) 98 I&O Intake and Output 04/14/20 04/15/20 19:00 07:00 Intake Total 1698.600 ml 1065.5 ml Output Total 1270 ml 1230 ml Balance 428.600 ml -164.5 ml Free Water 150 ml IV Total 948.600 ml 715.5 ml Tube Feeding 600 ml 350 ml Output Urine Total 1270 ml 1150 ml Stool Total 80 ml Cardiovascular: RSR Respiratory: decreased breath sounds Abdomen: soft, non-tender, present bowel sounds Extremities: no tenderness, no cyanosis Laboratory Tests Test 04/14/20 22:50 04/15/20 03:20 Arterial Blood pH 7.414 (7.350-7.450) Arterial Blood Partial Pressure CO2 53.4 mmHg (35.0-45.0) H Arterial Blood Partial Pressure O2 43.6 mmHg (75.0-100.0) Arterial Blood HCO3 33.4 mmol/L (22.0-26.0) H Arterial Blood Oxygen Saturation 79.2 % (95-100) *L Arterial Blood Base Excess 7.5 (-2-2) H Shemar Test Positive White Blood Count 8.6 K/UL (4.8-10.8) # Red Blood Count 3.57 M/UL (4.70-6.10) L Hemoglobin 10.2 G/DL (14.2-18.0) L Hematocrit 32.5 % (42.0-52.0) L Mean Corpuscular Volume 91 FL (80-99) Mean Corpuscular Hemoglobin 28.5 PG (27.0-31.0) Mean Corpuscular Hemoglobin Concent 31.3 G/DL (32.0-36.0) L Red Cell Distribution Width 17.6 % (11.6-14.8) H Platelet Count 223 K/UL (150-450) Mean Platelet Volume 7.3 FL (6.5-10.1) Neutrophils (%) (Auto) % (45.0-75.0) Lymphocytes (%) (Auto) % (20.0-45.0) Monocytes (%) (Auto) % (1.0-10.0) Eosinophils (%) (Auto) % (0.0-3.0) Basophils (%) (Auto) % (0.0-2.0) Differential Total Cells Counted 100 Neutrophils % (Manual) 89 % (45-75) H Lymphocytes % (Manual) 7 % (20-45) L Monocytes % (Manual) 2 % (1-10) Eosinophils % (Manual) 0 % (0-3) Basophils % (Manual) 0 % (0-2) Band Neutrophils 2 % (0-8) Platelet Estimate Adequate Platelet Morphology Normal Polychromasia 1+ Anisocytosis 1+ Sodium Level 143 MMOL/L (136-145) Potassium Level 4.6 MMOL/L (3.5-5.1) Chloride Level 103 MMOL/L (98-107) Carbon Dioxide Level 34 MMOL/L (21-32) H Anion Gap 6 mmol/L (5-15) Blood Urea Nitrogen 18 mg/dL (7-18) Creatinine 0.4 MG/DL (0.55-1.30) L Estimat Glomerular Filtration Rate > 60 mL/min (>60) Glucose Level 115 MG/DL (74-106) H Calcium Level 8.3 MG/DL (8.5-10.1) L Total Bilirubin 0.5 MG/DL (0.2-1.0) Aspartate Amino Transf (AST/SGOT) 31 U/L (15-37) Alanine Aminotransferase (ALT/SGPT) 170 U/L (12-78) H Alkaline Phosphatase 295 U/L (46-116) H Total Protein 5.4 G/DL (6.4-8.2) L Albumin 1.9 G/DL (3.4-5.0) L Globulin 3.5 g/dL Albumin/Globulin Ratio 0.5 (1.0-2.7) L Plan Problems: (1) Pneumonia (2) Staphylococcus aureus bacteremia (3) COVID-19 virus infection (4) Chest pain (5) Hypertension (6) Dehydration (7) Electrolyte imbalance (8) DMII (diabetes mellitus, type 2) (9) Protein malnutrition (10) Respiratory insufficiency Assessment & Plan: 64-year-old male with respiratory insufficiency intubated in an intensive care unit. Patient has been unable to safely wean off ventilatory support. Surgery called to evaluate for tracheostomy. After careful evaluation patient is a candidate for tracheostomy. In the meantime will obtain consent. If consent obtained will proceed with scheduling. Thank you for your participation's care will follow recommendations Booker Rausch Apr 15, 2020 12:33
--- NOTE | 2020-04-15 13:00 | NUR ---
NURSE NOTES: No n/v noted. OG feeding tolerated well. HOB elevated at all times. Afebrile.
--- NOTE | 2020-04-15 14:35 | NUR ---
NURSE NOTES: Seen by Dr. Rausch and told RN the plan for this week is to put trach. He told RN he will put in order for consent. CN made aware.
--- NOTE | 2020-04-15 16:12 | NUR ---
NURSE NOTES: Sponge bath given. Afebrile. Remain stable.
--- NOTE | 2020-04-15 17:05 | Cardiology Progress Note ---
Assessment/Plan Assessment/Plan respiratory failure, unresponsiveness main issues are not cardiac Subjective Subjective the patient is deeply comatose Objective Last 24 Hour Vital Signs Date Time Temp Pulse Resp B/P (MAP) Pulse Ox O2 Delivery O2 Flow Rate FiO2 04/15/20 16:00 Mechanical Ventilator 04/15/20 16:00 100 04/15/20 16:00 18 135/68 Endotracheal Tube 80 04/15/20 16:00 97.9 77 18 135/68 (90) 99 04/15/20 16:00 73 04/15/20 15:57 18 135/68 Endotracheal Tube 80 04/15/20 15:34 69 18 90 04/15/20 15:00 84 21 158/90 (112) 100 04/15/20 15:00 21 158/90 Endotracheal Tube 80 04/15/20 14:57 21 158/90 Endotracheal Tube 80 04/15/20 14:00 80 18 129/66 (87) 99 04/15/20 14:00 18 129/66 Endotracheal Tube 80 04/15/20 13:57 18 129/66 Endotracheal Tube 80 04/15/20 13:00 96 21 168/83 (111) 98 04/15/20 13:00 21 168/83 Endotracheal Tube 80 04/15/20 12:57 23 166/84 Endotracheal Tube 80 04/15/20 12:12 23 118/92 Endotracheal Tube 80 04/15/20 12:00 100 04/15/20 12:00 Mechanical Ventilator 04/15/20 12:00 23 201/89 Endotracheal Tube 80 04/15/20 12:00 98.3 119 23 201/89 (126) 90 04/15/20 12:00 100 04/15/20 12:00 105 04/15/20 11:24 67 18 90 04/15/20 11:00 18 112/62 Endotracheal Tube 80 04/15/20 11:00 67 18 112/62 (79) 98 04/15/20 10:39 18 118/61 Endotracheal Tube 80 04/15/20 10:00 71 18 118/61 (80) 97 04/15/20 10:00 18 118/61 Endotracheal Tube 80 04/15/20 09:39 18 138/71 Endotracheal Tube 80 04/15/20 09:00 18 138/71 Endotracheal Tube 80 04/15/20 09:00 72 18 138/71 (93) 99 04/15/20 08:39 18 108/64 Endotracheal Tube 80 04/15/20 08:00 100 04/15/20 08:00 Mechanical Ventilator 04/15/20 08:00 18 108/64 Endotracheal Tube 80 04/15/20 08:00 82 04/15/20 08:00 99.6 65 18 108/64 (79) 100 04/15/20 07:39 21 100/60 Mechanical Ventilator 100 04/15/20 07:34 65 18 90 04/15/20 07:00 21 101/60 Mechanical Ventilator 100 04/15/20 07:00 72 18 127/65 (85) 99 04/15/20 06:39 21 120/70 Mechanical Ventilator 100 04/15/20 06:39 21 101/60 04/15/20 06:00 21 105/60 Mechanical Ventilator 100 04/15/20 06:00 73 18 136/76 (96) 100 04/15/20 05:39 21 149/85 Mechanical Ventilator 100 04/15/20 05:00 76 18 143/78 (99) 100 04/15/20 05:00 21 138/52 Mechanical Ventilator 100 04/15/20 04:39 21 138/62 Mechanical Ventilator 100 04/15/20 04:30 99.0 80 19 143/78 (99) 100 04/15/20 04:13 23 150/62 Mechanical Ventilator 100 04/15/20 04:00 Mechanical Ventilator 04/15/20 04:00 100 04/15/20 04:00 77 04/15/20 04:00 23 150/81 Mechanical Ventilator 100 04/15/20 04:00 84 19 148/79 (102) 100 04/15/20 03:39 23 140/62 Mechanical Ventilator 100 04/15/20 03:30 88 18 150/81 (104) 100 04/15/20 03:19 23 150/80 Mechanical Ventilator 100 04/15/20 03:10 75 04/15/20 03:00 90 19 150/80 (103) 99 04/15/20 03:00 23 138/65 Mechanical Ventilator 100 04/15/20 02:39 20 150/80 Mechanical Ventilator 100 04/15/20 02:33 81 18 90 04/15/20 02:30 98 21 160/79 (106) 99 04/15/20 02:00 98 22 138/76 (96) 98 04/15/20 02:00 22 160/79 Mechanical Ventilator 100 04/15/20 01:39 23 130/76 Mechanical Ventilator 100 04/15/20 01:30 98 25 167/84 (111) 98 04/15/20 01:00 104 20 190/85 (120) 97 04/15/20 01:00 21 156/73 Mechanical Ventilator 100 04/15/20 00:39 23 138/76 Mechanical Ventilator 100 04/15/20 00:30 97 20 141/73 (95) 97 04/15/20 00:00 Mechanical Ventilator 04/15/20 00:00 99.0 109 21 163/77 (105) 96 04/15/20 00:00 21 141/73 Mechanical Ventilator 100 04/15/20 00:00 100 04/14/20 23:39 24 163/77 Mechanical Ventilator 100 04/14/20 23:30 107 21 154/78 (103) 92 04/14/20 23:24 26 158/85 Mechanical Ventilator 100 04/14/20 23:09 28 188/82 Mechanical Ventilator 04/14/20 23:00 119 28 202/80 (120) 85 04/14/20 23:00 21 156/73 Mechanical Ventilator 100 04/14/20 22:54 28 200/88 Mechanical Ventilator 100 04/14/20 22:50 111 28 220/90 (133) 84 04/14/20 22:45 180/80 04/14/20 22:43 105 25 211/88 (129) 80 04/14/20 22:39 26 202/80 Mechanical Ventilator 100 04/14/20 22:36 85 23 90 04/14/20 22:30 94 23 187/88 (121) 83 04/14/20 22:24 26 202/80 Mechanical Ventilator 100 04/14/20 22:09 25 211/88 Mechanical Ventilator 100 04/14/20 22:00 75 18 138/68 (91) 92 04/14/20 22:00 20 150/80 Mechanical Ventilator 100 04/14/20 21:54 18 138/68 Mechanical Ventilator 100 04/14/20 21:39 25 138/68 Mechanical Ventilator 100 04/14/20 21:30 73 18 125/61 (82) 92 04/14/20 21:24 18 129/66 Mechanical Ventilator 100 04/14/20 21:09 21 138/73 Mechanical Ventilator 15.0 90 2/12/21 21:00 20 129/66 Mechanical Ventilator 100 04/14/20 21:00 66 18 120/61 (80) 91 04/14/20 20:30 70 18 129/66 (87) 92 04/14/20 20:00 73 04/14/20 20:00 18 120/66 Mechanical Ventilator 100 04/14/20 20:00 100 04/14/20 20:00 Mechanical Ventilator 04/14/20 20:00 98.6 76 18 143/70 (94) 93 04/14/20 19:30 73 18 136/74 (94) 93 04/14/20 19:11 88 21 90 04/14/20 19:00 18 129/66 Mechanical Ventilator 100 04/14/20 18:53 22 138/73 Mechanical Ventilator 100 04/14/20 18:00 18 136/68 Mechanical Ventilator 100 04/14/20 18:00 18 Mechanical Ventilator 100 04/14/20 18:00 77 18 136/68 (90) 91 General Appearance: other - deeply comatose EENT: other - no reflexes Rhythm: ST Cardiovascular: tachycardia, systolic murmur Respiratory/Chest: rhonchi - bilaterally Abdomen: distended Extremities: other - periferal edema Intake and Output 04/14/20 04/15/20 19:00 07:00 Intake Total 1698.600 ml 1065.5 ml Output Total 1270 ml 1230 ml Balance 428.600 ml -164.5 ml Free Water 150 ml IV Total 948.600 ml 715.5 ml Tube Feeding 600 ml 350 ml Output Urine Total 1270 ml 1150 ml Stool Total 80 ml Laboratory Tests Test 04/14/20 22:50 04/15/20 03:20 Arterial Blood pH 7.414 (7.350-7.450) Arterial Blood Partial Pressure CO2 53.4 mmHg (35.0-45.0) H Arterial Blood Partial Pressure O2 43.6 mmHg (75.0-100.0) Arterial Blood HCO3 33.4 mmol/L (22.0-26.0) H Arterial Blood Oxygen Saturation 79.2 % (95-100) *L Arterial Blood Base Excess 7.5 (-2-2) H Shemar Test Positive White Blood Count 8.6 K/UL (4.8-10.8) # Red Blood Count 3.57 M/UL (4.70-6.10) L Hemoglobin 10.2 G/DL (14.2-18.0) L Hematocrit 32.5 % (42.0-52.0) L Mean Corpuscular Volume 91 FL (80-99) Mean Corpuscular Hemoglobin 28.5 PG (27.0-31.0) Mean Corpuscular Hemoglobin Concent 31.3 G/DL (32.0-36.0) L Red Cell Distribution Width 17.6 % (11.6-14.8) H Platelet Count 223 K/UL (150-450) Mean Platelet Volume 7.3 FL (6.5-10.1) Neutrophils (%) (Auto) % (45.0-75.0) Lymphocytes (%) (Auto) % (20.0-45.0) Monocytes (%) (Auto) % (1.0-10.0) Eosinophils (%) (Auto) % (0.0-3.0) Basophils (%) (Auto) % (0.0-2.0) Differential Total Cells Counted 100 Neutrophils % (Manual) 89 % (45-75) H Lymphocytes % (Manual) 7 % (20-45) L Monocytes % (Manual) 2 % (1-10) Eosinophils % (Manual) 0 % (0-3) Basophils % (Manual) 0 % (0-2) Band Neutrophils 2 % (0-8) Platelet Estimate Adequate Platelet Morphology Normal Polychromasia 1+ Anisocytosis 1+ Sodium Level 143 MMOL/L (136-145) Potassium Level 4.6 MMOL/L (3.5-5.1) Chloride Level 103 MMOL/L (98-107) Carbon Dioxide Level 34 MMOL/L (21-32) H Anion Gap 6 mmol/L (5-15) Blood Urea Nitrogen 18 mg/dL (7-18) Creatinine 0.4 MG/DL (0.55-1.30) L Estimat Glomerular Filtration Rate > 60 mL/min (>60) Glucose Level 115 MG/DL (74-106) H Calcium Level 8.3 MG/DL (8.5-10.1) L Total Bilirubin 0.5 MG/DL (0.2-1.0) Aspartate Amino Transf (AST/SGOT) 31 U/L (15-37) Alanine Aminotransferase (ALT/SGPT) 170 U/L (12-78) H Alkaline Phosphatase 295 U/L (46-116) H Total Protein 5.4 G/DL (6.4-8.2) L Albumin 1.9 G/DL (3.4-5.0) L Globulin 3.5 g/dL Albumin/Globulin Ratio 0.5 (1.0-2.7) L Microbiology Date/Time Source Procedure Growth Status 04/14/20 16:35 Stool Clostridium difficile Toxin Assay - Final Complete Cha Chopra MD Apr 15, 2020 17:04
[2020-04-15] MEDS: Bactrim-DS 1 tab ORAL SCH (17:18)
--- NOTE | 2020-04-15 19:14 | Infectious Diseases Prog Note ---
Assessment/Plan Assessment/Plan ASSESSMENT AND PLAN: 1. staph aureus bacteremia/mssa, ? source, ? endocarditis, sepsis, leukocytosis, ? CAP, PJP less likely with HIV negative and steroids < 1 month covid-19 +, hypoxia, sob, chest x-ray worse, ? PE, ? HCAP/aspiration pna recurrent fevers - ? fungal, ? OI leukocytosis noted - ? new infection, ? steroids cocci serology negative, legionella negative, beta 1,3 D-glucan wnl, Il-16 - 13.7 elevated LFT's - ? TPN, ? Bactrim - US without gallbladder disease, + steatosis - d/w GI - TPN more likely than bactrim as etiology e.coli uti - s/p treatment with rocephin, s/p treatment for presumptive pneumocystis pna + yeast in blood, fungemia, ? line infection, line changed worsening respiratory status, ? new aspiration pna/hcap, ? sepsis ? fungal/cynthia uti vs colonization - zosyn and vancomycin -day # 5/7, surveillance cultures negative to date - micafungin - day # 14/14 (post negative blood cultures - 04/02/20) - on solumedrol - picc line changed - bactrim for pneumocystis prophylaxis, s/p pneumocystis treatment - s/p tx for mssa bacteremia and ? endocarditis - monitor hypoxia, labs and chest x-ray - guarded condition - plan on trach - c.diff. negative 2. covid-19 isolation 3. Hypertension history. Blood pressure treatment primary care team. 4. Elevated blood sugars. Blood sugar treatment per primary care team. 5. No known drug allergies. 6. Social history is positive for smoking. 7. Family history is noncontributory. 8. MAR was noted. 9. Case was discussed with RN. 10. Continue treatment per primary consultants. Subjective Constitutional: Reports: fatigue, other - on vent, no pressors ; Denies: fever HEENT: Reports: congestion Respiratory: Reports: shortness of breath Cardiovascular: Reports: other - no pressors Gastrointestinal/Abdominal: Reports: diarrhea, other - rectal tube ; Denies: nausea, vomiting Genitourinary: Reports: other - + joseph Neurologic: Reports: weakness, other - sedated Psychiatric: Reports: other - NA Skin: Denies: rash Hematologic: Denies: bleeding Musculoskeletal: Reports: other - NA Allergies: Coded Allergies: No Known Allergies (Unverified , 02/05/20) Objective Last 24 Hour Vital Signs Date Time Temp Pulse Resp B/P (MAP) Pulse Ox O2 Delivery O2 Flow Rate FiO2 04/15/20 18:00 18 108/62 Endotracheal Tube 80 04/15/20 18:00 68 18 108/62 (77) 99 04/15/20 17:57 18 108/62 Endotracheal Tube 80 04/15/20 17:00 18 109/62 Endotracheal Tube 80 04/15/20 17:00 67 18 109/62 (78) 98 04/15/20 16:57 18 109/62 Endotracheal Tube 80 04/15/20 16:00 Mechanical Ventilator 04/15/20 16:00 100 04/15/20 16:00 18 135/68 Endotracheal Tube 80 04/15/20 16:00 97.9 77 18 135/68 (90) 99 04/15/20 16:00 73 04/15/20 15:57 18 135/68 Endotracheal Tube 80 04/15/20 15:34 69 18 90 04/15/20 15:00 84 21 158/90 (112) 100 04/15/20 15:00 21 158/90 Endotracheal Tube 80 04/15/20 14:57 21 158/90 Endotracheal Tube 80 04/15/20 14:00 80 18 129/66 (87) 99 04/15/20 14:00 18 129/66 Endotracheal Tube 80 04/15/20 13:57 18 129/66 Endotracheal Tube 80 04/15/20 13:00 96 21 168/83 (111) 98 04/15/20 13:00 21 168/83 Endotracheal Tube 80 04/15/20 12:57 23 166/84 Endotracheal Tube 80 04/15/20 12:12 23 118/92 Endotracheal Tube 80 04/15/20 12:00 100 04/15/20 12:00 Mechanical Ventilator 04/15/20 12:00 23 201/89 Endotracheal Tube 80 04/15/20 12:00 98.3 119 23 201/89 (126) 90 04/15/20 12:00 100 04/15/20 12:00 105 04/15/20 11:24 67 18 90 04/15/20 11:00 18 112/62 Endotracheal Tube 80 04/15/20 11:00 67 18 112/62 (79) 98 2/13/21 10:39 18 118/61 Endotracheal Tube 80 04/15/20 10:00 71 18 118/61 (80) 97 04/15/20 10:00 18 118/61 Endotracheal Tube 80 04/15/20 09:39 18 138/71 Endotracheal Tube 80 04/15/20 09:00 18 138/71 Endotracheal Tube 80 04/15/20 09:00 72 18 138/71 (93) 99 04/15/20 08:39 18 108/64 Endotracheal Tube 80 04/15/20 08:00 100 04/15/20 08:00 Mechanical Ventilator 04/15/20 08:00 18 108/64 Endotracheal Tube 80 04/15/20 08:00 82 04/15/20 08:00 99.6 65 18 108/64 (79) 100 04/15/20 07:39 21 100/60 Mechanical Ventilator 100 04/15/20 07:34 65 18 90 04/15/20 07:00 21 101/60 Mechanical Ventilator 100 04/15/20 07:00 72 18 127/65 (85) 99 04/15/20 06:39 21 120/70 Mechanical Ventilator 100 04/15/20 06:39 21 101/60 04/15/20 06:00 21 105/60 Mechanical Ventilator 100 04/15/20 06:00 73 18 136/76 (96) 100 04/15/20 05:39 21 149/85 Mechanical Ventilator 100 04/15/20 05:00 76 18 143/78 (99) 100 04/15/20 05:00 21 138/52 Mechanical Ventilator 100 04/15/20 04:39 21 138/62 Mechanical Ventilator 100 04/15/20 04:30 99.0 80 19 143/78 (99) 100 04/15/20 04:13 23 150/62 Mechanical Ventilator 100 04/15/20 04:00 Mechanical Ventilator 04/15/20 04:00 100 04/15/20 04:00 77 04/15/20 04:00 23 150/81 Mechanical Ventilator 100 04/15/20 04:00 84 19 148/79 (102) 100 04/15/20 03:39 23 140/62 Mechanical Ventilator 100 04/15/20 03:30 88 18 150/81 (104) 100 04/15/20 03:19 23 150/80 Mechanical Ventilator 100 04/15/20 03:10 75 04/15/20 03:00 90 19 150/80 (103) 99 04/15/20 03:00 23 138/65 Mechanical Ventilator 100 04/15/20 02:39 20 150/80 Mechanical Ventilator 100 04/15/20 02:33 81 18 90 04/15/20 02:30 98 21 160/79 (106) 99 04/15/20 02:00 98 22 138/76 (96) 98 04/15/20 02:00 22 160/79 Mechanical Ventilator 100 04/15/20 01:39 23 130/76 Mechanical Ventilator 100 04/15/20 01:30 98 25 167/84 (111) 98 04/15/20 01:00 104 20 190/85 (120) 97 04/15/20 01:00 21 156/73 Mechanical Ventilator 100 04/15/20 00:39 23 138/76 Mechanical Ventilator 100 04/15/20 00:30 97 20 141/73 (95) 97 04/15/20 00:00 Mechanical Ventilator 04/15/20 00:00 99.0 109 21 163/77 (105) 96 04/15/20 00:00 21 141/73 Mechanical Ventilator 100 04/15/20 00:00 100 04/14/20 23:39 24 163/77 Mechanical Ventilator 100 04/14/20 23:30 107 21 154/78 (103) 92 04/14/20 23:24 26 158/85 Mechanical Ventilator 100 04/14/20 23:09 28 188/82 Mechanical Ventilator 04/14/20 23:00 119 28 202/80 (120) 85 04/14/20 23:00 21 156/73 Mechanical Ventilator 100 04/14/20 22:54 28 200/88 Mechanical Ventilator 100 04/14/20 22:50 111 28 220/90 (133) 84 04/14/20 22:45 180/80 04/14/20 22:43 105 25 211/88 (129) 80 04/14/20 22:39 26 202/80 Mechanical Ventilator 100 04/14/20 22:36 85 23 90 04/14/20 22:30 94 23 187/88 (121) 83 04/14/20 22:24 26 202/80 Mechanical Ventilator 100 04/14/20 22:09 25 211/88 Mechanical Ventilator 100 04/14/20 22:00 75 18 138/68 (91) 92 04/14/20 22:00 20 150/80 Mechanical Ventilator 100 04/14/20 21:54 18 138/68 Mechanical Ventilator 100 04/14/20 21:39 25 138/68 Mechanical Ventilator 100 04/14/20 21:30 73 18 125/61 (82) 92 04/14/20 21:24 18 129/66 Mechanical Ventilator 100 04/14/20 21:09 21 138/73 Mechanical Ventilator 15.0 90 04/14/20 21:00 20 129/66 Mechanical Ventilator 100 04/14/20 21:00 66 18 120/61 (80) 91 04/14/20 20:30 70 18 129/66 (87) 92 04/14/20 20:00 73 04/14/20 20:00 18 120/66 Mechanical Ventilator 100 04/14/20 20:00 100 04/14/20 20:00 Mechanical Ventilator 04/14/20 20:00 98.6 76 18 143/70 (94) 93 04/14/20 19:30 73 18 136/74 (94) 93 04/14/20 19:11 88 21 90 Height (Feet): 5 Height (Inches): 10.00 Weight (Pounds): 240 General Appearance: other - on vent, no pressors HEENT: normocephalic, atraumatic, anicteric Respiratory/Chest: crackles/rales, rhonchi - bilaterally Cardiovascular: normal rate Abdomen: normal bowel sounds, soft, non tender, no organomegaly, non distended Genitourinary: other - + joseph - urine slt cloudy Extremities: no cyanosis Skin: no rash Neurologic/Psychiatric: other - sedated, weak, on vent Lymphatic: no neck adenopathy Musculoskeletal: no effusion CT chest: IMPRESSION: There are mild subpleural ground-glass and consolidating infiltrates in the dependent portions of both lower lobes and to lesser degree the upper lobes consistent with bilateral pneumonia. The infiltrates are typical for Covid 19. No evidence of pulmonary embolus. CT abdomen and pelvis: IMPRESSION: 1. Scattered hepatic hypodense lesions, too small to characterize on this examination without intravenous contrast. 2. Colonic diverticulosis without evidence of acute diverticulitis. 3. Scattered enlarged mesenteric lymph nodes, presumably reactive. teral pneumonia. The infiltrates are typical for Covid 19. No evidence of pulmonary embolus. Chest x-ray - 12/19/19 - Indication: Shortness of breath Technique: One view of the chest Comparison: 02/17/2020 Findings: Interim worsening of bilateral infiltrates, particularly on the right. The heart is borderline enlarged. The pleural spaces are clear. Left arm PICC is again demonstrated Impression: Worsening bilateral infiltrates over one day, likely pneumonia CT chest - 02/19/20 - IMPRESSION: Increased extensive patchy ground-glass opacities and densities throughout the lungs, suggestive of Covid 19 infection. Chest x-ray 02/23/20 - Procedure: XRAY Chest 1v As Indication: Reason For Exam: INFECT Technique: One view of the chest Comparison: 02/20/2020 Findings: Allowing for differences in exposure technique, bilateral mid and lower lung infiltrates are probably unchanged. The heart size is normal. The pleural spaces are clear. Impression: Unchanged, over 4 days, findings as above. Chest x-ray - 02/25/20 - FINDINGS: Lungs: Interval slightly worsening bilateral airspace disease. Pleural space: Unremarkable. No pneumothorax. Heart: Unremarkable. No cardiomegaly. Mediastinum: Unremarkable. Bones/joints: Unremarkable. IMPRESSION: Interval slightly worsening bilateral airspace disease. Chest x-ray - 03/02/20 - Procedure: XRAY Chest 1v Indication: Shortness of breath Technique: One view of the chest Comparison: 02/25/2020 Findings: Bilateral interstitial and airspace infiltrates are unchanged. The heart size is normal. Left arm PICC is again demonstrated Impression: Unchanged, over one day, findings as above. Chest x-ray - 03/06/20 - Procedure: XRAY Chest 1v Indication: Shortness of breath Technique: One view of the chest Comparison: 03/02/2020 Findings: Bilateral infiltrates are unchanged. Normal heart size. Pleural spaces are clear Chest x-ray - 03/12/10 - Impression: COMPARISON: Chest radiograph March 06, 2020. FINDINGS/IMPRESSION: Improving basilar infiltrates. Follow chest radiograph recommended. The upper lung finley are clear. No pneumothorax. Stable cardiomegaly. Stable left upper extremity PICC line. anged, over 4 days, findings as above. Chest x-ray - 03/17/20 - Procedure: XRAY Chest 1v Indication: Shortness of breath Technique: One view of the chest Comparison: 03/12/2020 Findings: Left arm PICC is again demonstrated. Infiltrates are unchanged. The heart size is upper limits of normal. Impression: Unchanged, over 5 days, findings as above. Abdominal US - IMPRESSION: 1. Gallbladder is normal. 2. Hepatic steatosis. 3. 1.7 cm cyst right kidney. Impression. Chest x-ray - Procedure: XRAY Chest 1v Indication: Shortness of breath Technique: One view of the chest Comparison: 03/17/2020 Findings: Bilateral right greater than left infiltrates again demonstrated. The heart size is normal. There is a left arm PICC in good position. Impression: Unchanged, over 5 days, findings as above. Chest x-ray - 03/29/20 - Procedure: XRAY Chest 1v Indication: Cough Technique: One view of the chest Comparison: 03/28/2020 Findings: Bilateral infiltrates are unchanged or slightly worse, allowing for differences in exposure technique. The pleural spaces are clear. The heart size is normal. Stable satisfactory position of endotracheal tube, left arm PICC. Orogastric tube has retracted somewhat the position remains satisfactory. Impression: Stable to slightly worse bilateral infiltrates. Otherwise little casino change attendant one day Chest x-ray - 03/31/20 - Procedure: XRAY Chest 1v Indication: Post endotracheal tube repositioning Technique: One view of the chest Comparison: 3 hours earlier Findings: Interim advancement of endotracheal tube, tip projecting approximately 5 cm above the sunny. Interim advancement of orogastric tube as well. Bilateral infiltrates are unchanged. Left arm PICC remains Impression: Improved and now satisfactory tube positions as described. ICU nurse Maeve notified at the time of interpretation Chest x-ray - 04/02/20 - COMPARISON: Chest x-rays dated 03/31/20 and 03/12/20. FINDINGS: Lungs: No significant change in bilateral prominent interstitial markings. The lungs are otherwise clear without focal consolidation. Pleural space: Unremarkable. The costophrenic angles are sharp. No visible pneumothorax. Heart: Unremarkable. No cardiomegaly. Mediastinum: Unremarkable. Bones/joints: Unremarkable. Tubes, lines and devices: Endotracheal tube tip 6.5 cm above the sunny. NG tube tip in the distal stomach. Telemetry leads overlie the thorax. IMPRESSION: No significant change in bilateral prominent interstitial markings. Procedure: XRAY Chest 1v Procedure: XRAY Chest 1v Reason for study: Shortness of breath 04/06/20 - Comparison films: 04/02/2020. FINDINGS: Endotracheal tube and NG tube remain in place. There is worsening of right basilar infiltrates. Some haziness in left lung base unchanged. Cardiac and mediastinal silhouette are within normal limits. CP angles are sharp. The bony thorax appear unremarkable. IMPRESSION: Worsening of right basilar infiltrate. Chest x-ray - 04/09/20 - Procedure: XRAY Chest 1v FILM CXR 1 VIEW INDICATION: Infection COMPARISON: April 05, 2020 FINDINGS: Single frontal view demonstrates a normal cardiomediastinal silhouette. Endotracheal tube in place with tip above the sunny. Elevation of the right hemidiaphragm. Interstitial prominence with bilateral lower lobe infiltrates. Lung bases appear worse from the prior exam. Small right effusion. Right-sided PICC line with tip in the superior vena cava. Enteric tube in place. IMPRESSION: Interstitial prominence and bilateral lower lobe pneumonia with worsening appearance from the prior study. Chest x-ray - 04/12/20 - Procedure: XRAY Chest 1v Indication: Shortness of breath Technique: One view of the chest Comparison: 04/09/2020 Findings: Stable satisfactory tube and line positions. Bilateral infiltrates have worsened slightly since prior study. The heart size is normal. Impression: Worsening bilateral infiltrates, over 3 days Chest x-ray - 02/12/21 - COMPARISON: 02/11/21. FINDINGS: Lungs: There is been no significant change in mild to moderate patchy diffuse bilateral alveolar infiltrates which are most prominent in the lung bases. Pleural space: Unremarkable. No pneumothorax. Heart: Unremarkable. No cardiomegaly. Mediastinum: Unremarkable. Bones/joints: Unremarkable. Tubes, lines and devices: There is an endotracheal tube, right-sided PICC line and NG tube in good position. IMPRESSION: There is been no significant change in mild to moderate patchy diffuse bilateral alveolar infiltrates which are most prominent in the lung bases. Microbiology Date/Time Source Procedure Growth Status 04/14/20 16:35 Stool Clostridium difficile Toxin Assay - Final Complete Laboratory Tests Test 04/14/20 22:50 04/15/20 03:20 Arterial Blood pH 7.414 (7.350-7.450) Arterial Blood Partial Pressure CO2 53.4 mmHg (35.0-45.0) H Arterial Blood Partial Pressure O2 43.6 mmHg (75.0-100.0) Arterial Blood HCO3 33.4 mmol/L (22.0-26.0) H Arterial Blood Oxygen Saturation 79.2 % (95-100) *L Arterial Blood Base Excess 7.5 (-2-2) H Shemar Test Positive White Blood Count 8.6 K/UL (4.8-10.8) # Red Blood Count 3.57 M/UL (4.70-6.10) L Hemoglobin 10.2 G/DL (14.2-18.0) L Hematocrit 32.5 % (42.0-52.0) L Mean Corpuscular Volume 91 FL (80-99) Mean Corpuscular Hemoglobin 28.5 PG (27.0-31.0) Mean Corpuscular Hemoglobin Concent 31.3 G/DL (32.0-36.0) L Red Cell Distribution Width 17.6 % (11.6-14.8) H Platelet Count 223 K/UL (150-450) Mean Platelet Volume 7.3 FL (6.5-10.1) Neutrophils (%) (Auto) % (45.0-75.0) Lymphocytes (%) (Auto) % (20.0-45.0) Monocytes (%) (Auto) % (1.0-10.0) Eosinophils (%) (Auto) % (0.0-3.0) Basophils (%) (Auto) % (0.0-2.0) Differential Total Cells Counted 100 Neutrophils % (Manual) 89 % (45-75) H Lymphocytes % (Manual) 7 % (20-45) L Monocytes % (Manual) 2 % (1-10) Eosinophils % (Manual) 0 % (0-3) Basophils % (Manual) 0 % (0-2) Band Neutrophils 2 % (0-8) Platelet Estimate Adequate Platelet Morphology Normal Polychromasia 1+ Anisocytosis 1+ Sodium Level 143 MMOL/L (136-145) Potassium Level 4.6 MMOL/L (3.5-5.1) Chloride Level 103 MMOL/L (98-107) Carbon Dioxide Level 34 MMOL/L (21-32) H Anion Gap 6 mmol/L (5-15) Blood Urea Nitrogen 18 mg/dL (7-18) Creatinine 0.4 MG/DL (0.55-1.30) L Estimat Glomerular Filtration Rate > 60 mL/min (>60) Glucose Level 115 MG/DL (74-106) H Calcium Level 8.3 MG/DL (8.5-10.1) L Total Bilirubin 0.5 MG/DL (0.2-1.0) Aspartate Amino Transf (AST/SGOT) 31 U/L (15-37) Alanine Aminotransferase (ALT/SGPT) 170 U/L (12-78) H Alkaline Phosphatase 295 U/L (46-116) H Total Protein 5.4 G/DL (6.4-8.2) L Albumin 1.9 G/DL (3.4-5.0) L Globulin 3.5 g/dL Albumin/Globulin Ratio 0.5 (1.0-2.7) L Current Medications Medications (Trade) Dose Ordered Sig/Dennis Route PRN Reason Start Time Stop Time Status Last Admin Dose Admin Acetaminophen (Tylenol) 650 mg Q4H PRN ORAL Temp >100.5 04/13/20 00:30 05/13/20 00:29 04/13/20 01:30 Bisacodyl (Dulcolax) 10 mg Q12H PRN RECTAL Constipation 03/18/20 16:45 06/16/20 16:44 Chlorhexidine Gluconate (Marlen-Hex 2%) 1 applic DAILY@2000 TOPIC 03/30/20 20:00 06/28/20 19:59 04/14/20 20:25 Dextrose (Dextrose 50%) 25 ml Q30M PRN IV Hypoglycemia 03/29/20 20:45 06/27/20 20:44 Dextrose (Dextrose 50%) 50 ml Q30M PRN IV Hypoglycemia 03/29/20 20:45 06/27/20 20:44 Enoxaparin Sodium (Lovenox) 80 mg EVERY 12 HOURS SUBQ 04/06/20 21:00 07/05/20 20:59 04/15/20 08:47 Fentanyl Citrate 250 ml @ 1 mls/hr Q24H IV 04/14/20 00:15 04/16/20 00:14 04/15/20 12:57 Furosemide 100 mg/ Dextrose 100 ml @ 7.5 mls/hr [id number] IV 04/15/20 11:00 05/15/20 10:59 04/15/20 11:14 Hydralazine HCl (Apresoline) 10 mg Q4H PRN IV For High Blood Pressure 03/30/20 12:15 4/28/21 12:14 04/14/20 22:45 Insulin Aspart (NovoLOG) Q6HR SUBQ 03/30/20 00:00 06/28/20 00:00 04/15/20 12:25 Labetalol HCl (Normodyne) 10 mg Q4H PRN IV sbp greater tahtn 160 03/28/20 17:30 04/27/20 17:29 Methylprednisolone Sodium Succinate (Solu-MEDROL) 20 mg Q12HR IVP 04/12/20 21:00 06/20/20 20:59 04/15/20 08:45 Metoclopramide HCl (Reglan) 10 mg Q6H IVP 03/30/20 15:00 04/29/20 14:59 04/15/20 14:39 Micafungin Sodium 100 mg/Sodium Chloride 100 ml @ 100 mls/hr Q24H IVPB 04/09/20 15:00 04/22/20 23:59 04/15/20 15:33 Midazolam HCl 200 ml @ 0 mls/hr Q24H PRN IV To Patient Comfort 04/14/20 19:00 04/15/20 20:59 04/15/20 12:12 Pantoprazole (Protonix) 40 mg EVERY 12 HOURS IVP 04/01/20 21:00 05/01/20 20:59 04/15/20 08:46 Piperacillin Sod/ Tazobactam Sod 3.375 gm/Dextrose 110 ml @ 27.5 mls/hr EVERY 8 HOURS IVPB 04/14/20 14:00 04/19/20 13:59 04/15/20 14:39 Trimethoprim/ Sulfamethoxazole (Bactrim-DS) 1 tab Q24H ORAL 03/29/20 17:00 05/10/20 16:59 04/15/20 17:18 Vancomycin HCl (Vanco pharmacy to dose) 1 ea DAILY PRN MISC Per rx protocol 04/11/20 17:30 05/11/20 17:29 Vancomycin HCl 1 gm/Sodium Chloride 275 ml @ 183.708 mls/hr Q8H IVPB 04/12/20 18:30 04/17/20 18:29 04/15/20 18:34 Kisha Salazar MD Apr 15, 2020 19:14
--- NOTE | 2020-04-15 19:15 | NUR ---
NURSE NOTES: Rn received report from Alivia MATHEW. Patient in bed sedated and resting. Patient has one arm restrained. Patient on a mechanical ventilator with settings of ac 18 tidal volume 750 FIO2 at 90% and a PEEP 5. Patient o2 sats at this time around 95%. Patient has Fentanyl and Versed infusing for sedation. Patient has an OG with Glucerna 1.2 infusing @50ml/hr which is goal. Patient repositioned for comfort. RN will continue to monitor.
--- NOTE | 2020-04-15 19:27 | NUR ---
NURSE HAND-OFF REPORT: Latest Vital Signs: Temperature 97.9 , Pulse 63 , B/P 94 /54 , Respiratory Rate 18 , O2 SAT 98 , Endotracheal Tube, O2 Flow Rate . Vital Sign Comment: wnl EKG Rhythm: Sinus Rhythm Rhythm change?: N Notified?: Courtney -Dr.Toluie INTERIANO Response: Message left await call Latest Hassan Fall Score: 50 Fall Risk: High Risk Safety Measures: Call light Within Reach, Bed Alarm Zone 3, Side Rails Side Rails x3, Bed position Low and Locked. Fall Precautions: Yellow Socks Yellow Gown Door Sign Patient Fall Education Report given to Emelia Deng RN.
[2020-04-15] MEDS: Dyna-Hex 2% Top Sol 2oz TOPIC SCH (20:00)
--- NOTE | 2020-04-15 21:15 | NUR ---
NURSE NOTES: Patient vitals stable at this time. RT trying to wean FIO2. Currently at 85%. Patient repositioned. RN will continue to monitor.
--- NOTE | 2020-04-15 23:15 | NUR ---
NURSE NOTES: Patient vitals stable at this time. Patient desats to 80%. RN notified RT and FIO2 was increased. Patient repositioned. RN will continue to monitor.
[2020-04-16] VITALS (40 sets, daily range): BP systolic 81–227; BP diastolic 44–103
--- NOTE | 2020-04-16 01:15 | NUR ---
NURSE NOTES: Patient resting. Patient vitals stable. Patient repositioned. RN will continue to monitor.
[2020-04-16] MEDS: Versed 100mg/NS 200ml 200 ML IV PRN ×3 (02:28→18:11)
[2020-04-16] MEDS: Metoclopramide 10mg/2ml Inj IVP SCH ×4 (02:31→21:25)
[2020-04-16] MEDS: Vancomycin 1 GM in NS 275 ML IVPB SCH ×3 (02:31→18:47)
--- NOTE | 2020-04-16 03:15 | NUR ---
NURSE NOTES: Patient vitals stable. Patient sleeping. Tube feeding changed and updated. Residual of 65. Patient repositioned. RN will continue to monitor.
[2020-04-16] MEDS: NovoLOG Insulin Flexpen SUBQ SCH ×4 (06:00→23:39)
[2020-04-16] MEDS: Piperacillin/Tazobactam 3.375 GM in D5W 110 ML IVPB SCH ×3 (06:06→21:25)
[2020-04-16 06:58] LABS: BASOPHILS % (AUTO) 1.5 % (0.0-2.0); EOSINOPHILS % (AUTO) 0.3 % (0.0-3.0); HEMATOCRIT 30.1 % (42.0-52.0); HEMOGLOBIN 9.6 G/DL (14.2-18.0); LYMPHOCYTES % (AUTO) 10.9 % (20.0-45.0); MEAN CORPUSCULAR VOLUME 90 FL (80-99); MONOCYTES % (AUTO) 5.6 % (1.0-10.0); NEUTROPHILS % (AUTO) 81.6 % (45.0-75.0); PLATELET COUNT 215 K/UL (150-450); RED BLOOD COUNT 3.34 M/UL (4.70-6.10); RED CELL DISTRIBUTION WIDTH 17.5 % (11.6-14.8)
--- NOTE | 2020-04-16 07:08 | NUR ---
NURSE NOTES: Received hand over report from Flower MATHEW.
[2020-04-16 07:20] LABS: ALANINE AMINOTRANSFERASE 136 U/L (12-78); ALBUMIN 1.8 G/DL (3.4-5.0); ALBUMIN/GLOBULIN RATIO 0.5 (1.0-2.7); ALKALINE PHOSPHATASE 283 U/L (46-116); ANION GAP 3 mmol/L (5-15); ASPARTATE AMINO TRANSFERASE 40 U/L (15-37); BILIRUBIN,TOTAL 0.6 MG/DL (0.2-1.0); BLOOD UREA NITROGEN 20 mg/dL (7-18); CALCIUM 8.3 MG/DL (8.5-10.1); CARBON DIOXIDE 39 MMOL/L (21-32); CHLORIDE 100 MMOL/L (98-107); CREATININE 0.6 MG/DL (0.55-1.30); POTASSIUM 3.4 MMOL/L (3.5-5.1); SODIUM 143 MMOL/L (136-145)
--- NOTE | 2020-04-16 07:30 | NUR ---
NURSE HAND-OFF REPORT: Latest Vital Signs: Temperature 99.0 , Pulse 120 , B/P 125 /73 , Respiratory Rate 23 , O2 SAT 99 , Endotracheal Tube, O2 Flow Rate . Vital Sign Comment: EKG Rhythm: Sinus Tachycardia Rhythm change?: N Notified?: Courtney Paige MD Response: Message left await call Latest Hassan Fall Score: 50 Fall Risk: High Risk Safety Measures: Call light Within Reach, Bed Alarm Zone 3, Side Rails Side Rails x3, Bed position Low and Locked. Fall Precautions: Yellow Socks Yellow Gown Door Sign Patient Fall Education Report given to Alivia MATHEW .
--- NOTE | 2020-04-16 07:51 | NUR ---
RD ASSESSMENT & RECOMMENDATIONS SEE CARE ACTIVITY FOR COMPLETE ASSESSMENT DAILY ESTIMATED NEEDS: Needs based on Critical care, wound 81kg abw 22-28 kcals/kg 9180-5166 total kcals 1.25-1.5 g protein/kg 101-122 g total protein 25-30 mL/kg 0933-7794 total fluid mLs NUTRITION DIAGNOSIS: * Inadequate oral intake R/T clinical and respiratory status as evidenced by COVID-19 ++, on continuous BIPAP, prolonged meal refusals, pt is now on TPN, pt is now orally intubated (03/28), now on OGT feeds. * Decreased sodium and fat needs r/t HTN and obesity as evidenced by pt w/ cardiac history, elev BP (159/98-> now improved, on BP meds and diuretics), BMI >30, obese per guidelines. (INACTIVE) CURRENT TF: NOW ORDERED-> Glucerna 1.5 goal of 50 + Prosource BID ENTERAL NUTRITION RECOMMENDATIONS: Glucerna 1.5 @ 50ml/hr x 24 hrs + Prosource 1pkt BID to provide 1200ml, 1800kcal, 99g prot, 926ml free water * Maintain current TF @ goal as tolerated * Con't Prosource 1pkt BID (additional 22g prot) to better meet est prot needs. TPN Comment: Now off TPN, on OGT feeds. ADDITIONAL RECOMMENDATIONS: 1) Maintain calibrated bedscale wts 2) Obtain HgA1C for eval 3) Pt now w/ rectal tube, off lactulose 4) Off tpn, LFT's trending down. 5) Monitor lytes, replete as needed (K low, BUN up) 6) Monitor BGs- improved 7) Monitor for propofol resumed, now off
--- NOTE | 2020-04-16 07:56 | Pulmonology Progress Note ---
Subjective ROS Limited/Unobtainable: Yes Interval Events: Intubated 03/28/20 Constitutional: Reports: fatigue, other - on vent, no pressors ; Denies: fever HEENT: Repors: no symptoms Respiratory: Reports: dry cough, shortness of breath Cardiovascular: Reports: no symptoms Gastrointestinal/Abdominal: Reports: diarrhea, other - rectal tube ; Denies: nausea, vomiting Psychiatric: Reports: other - NA Skin: Denies: rash Musculoskeletal: Reports: other - NA Allergies: Coded Allergies: No Known Allergies (Unverified , 02/05/20) Objective Last 24 Hour Vital Signs Date Time Temp Pulse Resp B/P (MAP) Pulse Ox O2 Delivery O2 Flow Rate FiO2 04/16/20 07:00 70 18 84/44 (57) 87 04/16/20 06:30 73 18 105/50 (68) 88 04/16/20 06:30 73 18 105/50 (68) 88 04/16/20 06:00 84 18 121/65 (83) 90 04/16/20 05:30 94 22 145/84 (104) 85 04/16/20 05:00 69 18 101/52 (68) 95 04/16/20 04:30 65 18 97/51 (66) 95 04/16/20 04:00 Mechanical Ventilator 04/16/20 04:00 79 04/16/20 04:00 66 18 94/50 (65) 95 04/16/20 04:00 66 18 94/50 (65) 95 04/16/20 04:00 100 04/16/20 03:30 66 18 95/52 (66) 95 04/16/20 03:10 65 18 90 04/16/20 03:00 66 18 96/55 (69) 94 04/16/20 03:00 66 18 96/55 (69) 94 04/16/20 02:30 66 18 100/53 (69) 95 04/16/20 02:28 18 91/51 Mechanical Ventilator 90 04/16/20 02:15 18 92/58 Mechanical Ventilator 90 04/16/20 02:00 64 18 91/51 (64) 93 04/16/20 01:30 65 18 92/52 (65) 93 04/16/20 01:15 18 127/68 Mechanical Ventilator 90 04/16/20 01:00 70 18 112/63 (79) 94 04/16/20 00:30 75 18 127/66 (86) 94 04/16/20 00:27 18 127/68 Mechanical Ventilator 90 04/16/20 00:15 18 103/53 Mechanical Ventilator 90 04/16/20 00:00 64 18 100/53 (69) 96 04/16/20 00:00 100 04/16/20 00:00 88 04/16/20 00:00 Mechanical Ventilator 04/16/20 00:00 64 18 100/53 (69) 96 04/15/20 23:45 62 18 95 04/15/20 23:30 61 18 103/53 (70) 96 04/15/20 23:15 61 18 97 04/15/20 23:15 18 98/54 Mechanical Ventilator 90 04/15/20 23:15 61 18 85 04/15/20 23:15 61 18 97 04/15/20 23:00 60 18 100/54 (69) 96 04/15/20 22:45 62 18 96 04/15/20 22:30 62 18 98/54 (69) 95 04/15/20 22:15 20 101/54 Mechanical Ventilator 90 04/15/20 22:15 64 18 95 04/15/20 22:00 65 18 104/57 (73) 95 04/15/20 22:00 65 18 104/57 (73) 95 04/15/20 21:30 71 18 122/74 (90) 97 04/15/20 21:15 70 18 96 04/15/20 21:00 70 18 123/71 (88) 98 04/15/20 21:00 70 18 123/71 (88) 98 04/15/20 20:45 70 18 97 04/15/20 20:30 68 18 125/68 (87) 98 04/15/20 20:15 68 18 99 04/15/20 20:09 18 94/54 Endotracheal Tube 15.0 90 04/15/20 20:00 91 04/15/20 20:00 Mechanical Ventilator 04/15/20 20:00 61 18 107/60 (76) 99 04/15/20 20:00 100 04/15/20 19:45 60 18 99 04/15/20 19:30 61 18 98/55 (69) 99 04/15/20 19:15 61 18 98 04/15/20 19:10 59 18 90 04/15/20 19:00 63 18 94/54 (67) 98 04/15/20 19:00 63 18 94/54 (67) 98 04/15/20 18:00 18 108/62 Endotracheal Tube 80 04/15/20 18:00 68 18 108/62 (77) 99 04/15/20 17:57 18 108/62 Endotracheal Tube 80 04/15/20 17:00 18 109/62 Endotracheal Tube 80 04/15/20 17:00 67 18 109/62 (78) 98 04/15/20 16:57 18 109/62 Endotracheal Tube 80 04/15/20 16:00 Mechanical Ventilator 04/15/20 16:00 100 04/15/20 16:00 18 135/68 Endotracheal Tube 80 04/15/20 16:00 97.9 77 18 135/68 (90) 99 04/15/20 16:00 73 04/15/20 15:57 18 135/68 Endotracheal Tube 80 04/15/20 15:34 69 18 90 04/15/20 15:00 84 21 158/90 (112) 100 04/15/20 15:00 21 158/90 Endotracheal Tube 80 04/15/20 14:57 21 158/90 Endotracheal Tube 80 04/15/20 14:00 80 18 129/66 (87) 99 04/15/20 14:00 18 129/66 Endotracheal Tube 80 04/15/20 13:57 18 129/66 Endotracheal Tube 80 04/15/20 13:00 96 21 168/83 (111) 98 04/15/20 13:00 21 168/83 Endotracheal Tube 80 04/15/20 12:57 23 166/84 Endotracheal Tube 80 04/15/20 12:12 23 118/92 Endotracheal Tube 80 04/15/20 12:00 100 04/15/20 12:00 Mechanical Ventilator 04/15/20 12:00 23 201/89 Endotracheal Tube 80 04/15/20 12:00 98.3 119 23 201/89 (126) 90 04/15/20 12:00 100 04/15/20 12:00 105 04/15/20 11:24 67 18 90 04/15/20 11:00 18 112/62 Endotracheal Tube 80 04/15/20 11:00 67 18 112/62 (79) 98 04/15/20 10:39 18 118/61 Endotracheal Tube 80 04/15/20 10:00 71 18 118/61 (80) 97 04/15/20 10:00 18 118/61 Endotracheal Tube 80 04/15/20 09:39 18 138/71 Endotracheal Tube 80 04/15/20 09:00 18 138/71 Endotracheal Tube 80 04/15/20 09:00 72 18 138/71 (93) 99 04/15/20 08:39 18 108/64 Endotracheal Tube 80 04/15/20 08:00 100 04/15/20 08:00 Mechanical Ventilator 04/15/20 08:00 18 108/64 Endotracheal Tube 80 04/15/20 08:00 82 04/15/20 08:00 99.6 65 18 108/64 (79) 100 Intake and Output 04/15/20 04/16/20 19:00 07:00 Intake Total 1450 ml 1190 ml Output Total 2090 ml 5600 ml Balance -640 ml -4410 ml Free Water 250 ml IV Total 600 ml 590 ml Tube Feeding 600 ml 600 ml Output Urine Total 2040 ml 5600 ml Stool Total 50 ml General Appearance: WD/WN, no acute distress HEENT: normocephalic, atraumatic Respiratory: chest wall non-tender Cardiovascular: normal rate, regular rhythm Abdomen: normal bowel sounds, soft, non tender, other - obese Microbiology Date/Time Source Procedure Growth Status 04/14/20 16:35 Stool Clostridium difficile Toxin Assay - Final Complete Laboratory Tests 04/16/20 04:45: White Blood Count 5.0, Red Blood Count 3.34L, Hemoglobin 9.6L, Hematocrit 30.1L, Mean Corpuscular Volume 90, Mean Corpuscular Hemoglobin 28.9, Mean Corpuscular Hemoglobin Concent 32.0, Red Cell Distribution Width 17.5H, Platelet Count 215, Mean Platelet Volume 7.4, Neutrophils (%) (Auto) 81.6H, Lymphocytes (%) (Auto) 10.9L, Monocytes (%) (Auto) 5.6, Eosinophils (%) (Auto) 0.3, Basophils (%) (Auto) 1.5, Erythrocyte Sedimentation Rate [Pending], Prothrombin Time 11.5, Prothromb Time International Ratio 1.0, Sodium Level 143, Potassium Level 3.4L, Chloride Level 100, Carbon Dioxide Level 39H, Anion Gap 3L, Blood Urea Nitrogen 20H, Creatinine 0.6, Estimat Glomerular Filtration Rate > 60, Glucose Level 117H , Calcium Level 8.3L, Total Bilirubin 0.6, Aspartate Amino Transf (AST/SGOT) 40H , Alanine Aminotransferase (ALT/SGPT) 136H, Alkaline Phosphatase 283H, Total Protein 5.1L, Albumin 1.8L, Globulin 3.3, Albumin/Globulin Ratio 0.5L Current Medications Medications (Trade) Dose Ordered Sig/Dennis Route PRN Reason Start Time Stop Time Status Last Admin Dose Admin Acetaminophen (Tylenol) 650 mg Q4H PRN ORAL Temp >100.5 04/13/20 00:30 05/13/20 00:29 04/13/20 01:30 Bisacodyl (Dulcolax) 10 mg Q12H PRN RECTAL Constipation 03/18/20 16:45 06/16/20 16:44 Chlorhexidine Gluconate (Marlen-Hex 2%) 1 applic DAILY@2000 TOPIC 03/30/20 20:00 06/28/20 19:59 04/15/20 20:00 Dextrose (Dextrose 50%) 25 ml Q30M PRN IV Hypoglycemia 03/29/20 20:45 06/27/20 20:44 Dextrose (Dextrose 50%) 50 ml Q30M PRN IV Hypoglycemia 03/29/20 20:45 06/27/20 20:44 Enoxaparin Sodium (Lovenox) 80 mg EVERY 12 HOURS SUBQ 04/06/20 21:00 07/05/20 20:59 04/15/20 21:00 Fentanyl Citrate 250 ml @ 1 mls/hr Q24H IV 04/16/20 00:45 04/18/20 00:44 04/15/20 22:15 Furosemide 100 mg/ Dextrose 100 ml @ 7.5 mls/hr [id number] IV 04/15/20 11:00 05/15/20 10:59 04/16/20 00:27 Hydralazine HCl (Apresoline) 10 mg Q4H PRN IV For High Blood Pressure 03/30/20 12:15 06/28/20 12:14 04/14/20 22:45 Insulin Aspart (NovoLOG) Q6HR SUBQ 03/30/20 00:00 06/28/20 00:00 04/15/20 12:25 Labetalol HCl (Normodyne) 10 mg Q4H PRN IV sbp greater tahtn 160 03/28/20 17:30 04/27/20 17:29 Methylprednisolone Sodium Succinate (Solu-MEDROL) 20 mg Q12HR IVP 04/12/20 21:00 06/20/20 20:59 04/15/20 21:00 Metoclopramide HCl (Reglan) 10 mg Q6H IVP 03/30/20 15:00 04/29/20 14:59 04/16/20 02:31 Micafungin Sodium 100 mg/Sodium Chloride 100 ml @ 100 mls/hr Q24H IVPB 04/09/20 15:00 04/22/20 23:59 04/15/20 15:33 Midazolam HCl 200 ml @ 0 mls/hr Q24H PRN IV Agitation 04/16/20 00:45 04/23/20 00:44 04/16/20 02:28 Pantoprazole (Protonix) 40 mg EVERY 12 HOURS IVP 04/01/20 21:00 05/01/20 20:59 04/15/20 21:00 Piperacillin Sod/ Tazobactam Sod 3.375 gm/Dextrose 110 ml @ 27.5 mls/hr EVERY 8 HOURS IVPB 04/14/20 14:00 04/19/20 13:59 04/16/20 06:06 Trimethoprim/ Sulfamethoxazole (Bactrim-DS) 1 tab Q24H ORAL 03/29/20 17:00 05/10/20 16:59 04/15/20 17:18 Vancomycin HCl (Vanco pharmacy to dose) 1 ea DAILY PRN MISC Per rx protocol 04/11/20 17:30 05/11/20 17:29 Vancomycin HCl 1 gm/Sodium Chloride 275 ml @ 183.708 mls/hr Q8H IVPB 04/12/20 18:30 04/17/20 18:29 04/16/20 02:31 Assessment/Plan Assessment/Plan Assessment/Plan 1.COVID-19 pneumonia. - Completed specific therapies - On solumedrol 2. DVT ppx - on lovenox 3. Hypertension - no longer on meds - Not requiring pressors 4. Leukocytosis; - ID following - On abx - Budding yeast on blood CS 5. Elevated LFT - positive Hep C; treated in the past with IF 6. Respiratory failure -Intubated 03/28/20 -Family aware - Prognosis guarded - Vt 750; rate 18 -On sedation 7. Discussed with cardiology -No evidence for cardiac dysfunction or PE -tachycardic; will increase sedation 8. AMS -back on sedation - has apparent left arm paresis - Will consider CT brain when more stable S/p new PICC line On abx Slowly improving oxygenation Noted left upper extremity swelling. Has DVT; on full dose Lovenox Continue sedation, DC propofol given high triglycerides. Continue fentanyl and Versed. Saturations plummeted 04/12/20 when patient became agitated Now fully sedated on 90% FiO2 ; PEEP 5 Intubated now for 2 weeks Discussed tracheostomy with surgery Will decrease diuresis; has diuresed neg 4 L last 24 hours CXR shows fine interstitial edema John Mata MD Apr 16, 2020 07:56
[2020-04-16] MEDS: fentaNYL 2500mcg/NS 250ml 250 ML IV SCH ×2 (07:57→18:08)
--- NOTE | 2020-04-16 08:27 | NUR ---
NURSE NOTES: Pt. in bed, eyes open. Non-verbal. No s/sx of distress. ETT in placed with vent setting AC18/VT750/Fi O2 at 100%/P5. No grimacing noted. Cont. on Fentanyl and Versed drips. HOB elevated at all times. OG feeding in placed patent/intact running Glucerna 1.5 at 60cc/hr. No n/v noted. Tolerating well. F/C in placed patent/intact draining jeff colored urine. Rectal tube in placed patent/intact draining greenish liquid output. PICC line at right upper arm in placed patent/intact. Bed in low position, locked. Call light within reach. Will cont. to monitor.
[2020-04-16] MEDS: Solu-MEDROL 40mg Inj IVP SCH ×2 (09:09→21:25)
[2020-04-16] MEDS: Pantoprazole Inj IVP SCH ×2 (09:09→21:24)
[2020-04-16] MEDS: Enoxaparin 80mg Inj SUBQ SCH ×2 (09:10→21:25)
--- NOTE | 2020-04-16 10:15 | NUR ---
NURSE NOTES: Pt. suctioned by R.T. Rendered oral care also. No n/v noted.
--- NOTE | 2020-04-16 11:13 | Surgery Progress Note ---
Surgery Progress Note Subjective Additional Comments fi02 back to 100% today not ready for trach cont weaning Objective Last 24 Hour Vital Signs Date Time Temp Pulse Resp B/P (MAP) Pulse Ox O2 Delivery O2 Flow Rate FiO2 04/16/20 11:00 75 18 93/48 (63) 92 04/16/20 10:00 83 18 104/52 (69) 89 04/16/20 09:34 18 118/68 Endotracheal Tube 100 04/16/20 09:00 88 18 118/61 (80) 90 04/16/20 08:00 100 04/16/20 08:00 87 04/16/20 08:00 98.6 72 18 106/60 (75) 90 04/16/20 08:00 Mechanical Ventilator 04/16/20 07:57 18 106/60 Endotracheal Tube 100 04/16/20 07:57 22 92/47 Endotracheal Tube 100 04/16/20 07:28 18 106/60 Endotracheal Tube 100 04/16/20 07:15 18 84/44 Endotracheal Tube 100 04/16/20 07:00 70 18 84/44 (57) 87 04/16/20 06:30 73 18 105/50 (68) 88 04/16/20 06:30 73 18 105/50 (68) 88 04/16/20 06:00 84 18 121/65 (83) 90 04/16/20 05:30 94 22 145/84 (104) 85 04/16/20 05:00 69 18 101/52 (68) 95 04/16/20 04:30 65 18 97/51 (66) 95 04/16/20 04:00 Mechanical Ventilator 04/16/20 04:00 79 04/16/20 04:00 66 18 94/50 (65) 95 04/16/20 04:00 66 18 94/50 (65) 95 04/16/20 04:00 100 04/16/20 03:30 66 18 95/52 (66) 95 04/16/20 03:10 65 18 90 04/16/20 03:00 66 18 96/55 (69) 94 04/16/20 03:00 66 18 96/55 (69) 94 04/16/20 02:30 66 18 100/53 (69) 95 04/16/20 02:28 18 91/51 Mechanical Ventilator 90 04/16/20 02:15 18 92/58 Mechanical Ventilator 90 04/16/20 02:00 64 18 91/51 (64) 93 04/16/20 01:30 65 18 92/52 (65) 93 04/16/20 01:15 18 127/68 Mechanical Ventilator 90 04/16/20 01:00 70 18 112/63 (79) 94 04/16/20 00:30 75 18 127/66 (86) 94 04/16/20 00:27 18 127/68 Mechanical Ventilator 90 04/16/20 00:15 18 103/53 Mechanical Ventilator 90 04/16/20 00:00 64 18 100/53 (69) 96 04/16/20 00:00 100 04/16/20 00:00 88 04/16/20 00:00 Mechanical Ventilator 04/16/20 00:00 64 18 100/53 (69) 96 04/15/20 23:45 62 18 95 04/15/20 23:30 61 18 103/53 (70) 96 04/15/20 23:15 61 18 97 04/15/20 23:15 18 98/54 Mechanical Ventilator 90 04/15/20 23:15 61 18 85 04/15/20 23:15 61 18 97 04/15/20 23:00 60 18 100/54 (69) 96 04/15/20 22:45 62 18 96 04/15/20 22:30 62 18 98/54 (69) 95 04/15/20 22:15 20 101/54 Mechanical Ventilator 90 04/15/20 22:15 64 18 95 04/15/20 22:00 65 18 104/57 (73) 95 04/15/20 22:00 65 18 104/57 (73) 95 04/15/20 21:30 71 18 122/74 (90) 97 04/15/20 21:15 70 18 96 04/15/20 21:00 70 18 123/71 (88) 98 04/15/20 21:00 70 18 123/71 (88) 98 04/15/20 20:45 70 18 97 04/15/20 20:30 68 18 125/68 (87) 98 04/15/20 20:15 68 18 99 04/15/20 20:09 18 94/54 Endotracheal Tube 15.0 90 04/15/20 20:00 91 04/15/20 20:00 Mechanical Ventilator 04/15/20 20:00 61 18 107/60 (76) 99 04/15/20 20:00 100 04/15/20 19:45 60 18 99 04/15/20 19:30 61 18 98/55 (69) 99 04/15/20 19:15 61 18 98 04/15/20 19:10 59 18 90 04/15/20 19:00 63 18 94/54 (67) 98 04/15/20 19:00 63 18 94/54 (67) 98 04/15/20 18:00 18 108/62 Endotracheal Tube 80 04/15/20 18:00 68 18 108/62 (77) 99 04/15/20 17:57 18 108/62 Endotracheal Tube 80 04/15/20 17:00 18 109/62 Endotracheal Tube 80 04/15/20 17:00 67 18 109/62 (78) 98 04/15/20 16:57 18 109/62 Endotracheal Tube 80 04/15/20 16:00 Mechanical Ventilator 04/15/20 16:00 100 04/15/20 16:00 18 135/68 Endotracheal Tube 80 04/15/20 16:00 97.9 77 18 135/68 (90) 99 04/15/20 16:00 73 04/15/20 15:57 18 135/68 Endotracheal Tube 80 04/15/20 15:34 69 18 90 04/15/20 15:00 84 21 158/90 (112) 100 04/15/20 15:00 21 158/90 Endotracheal Tube 80 04/15/20 14:57 21 158/90 Endotracheal Tube 80 04/15/20 14:00 80 18 129/66 (87) 99 04/15/20 14:00 18 129/66 Endotracheal Tube 80 04/15/20 13:57 18 129/66 Endotracheal Tube 80 04/15/20 13:00 96 21 168/83 (111) 98 04/15/20 13:00 21 168/83 Endotracheal Tube 80 04/15/20 12:57 23 166/84 Endotracheal Tube 80 04/15/20 12:12 23 118/92 Endotracheal Tube 80 04/15/20 12:00 100 04/15/20 12:00 Mechanical Ventilator 04/15/20 12:00 23 201/89 Endotracheal Tube 80 04/15/20 12:00 98.3 119 23 201/89 (126) 90 04/15/20 12:00 100 04/15/20 12:00 105 04/15/20 11:24 67 18 90 I&O Intake and Output 04/15/20 04/16/20 19:00 07:00 Intake Total 1450 ml 1190 ml Output Total 2090 ml 5600 ml Balance -640 ml -4410 ml Free Water 250 ml IV Total 600 ml 590 ml Tube Feeding 600 ml 600 ml Output Urine Total 2040 ml 5600 ml Stool Total 50 ml Cardiovascular: RSR Respiratory: decreased breath sounds Abdomen: soft, non-tender, present bowel sounds, non-distended Extremities: no edema, no tenderness, no cyanosis Laboratory Tests Test 04/16/20 04:45 White Blood Count 5.0 K/UL (4.8-10.8) Red Blood Count 3.34 M/UL (4.70-6.10) L Hemoglobin 9.6 G/DL (14.2-18.0) L Hematocrit 30.1 % (42.0-52.0) L Mean Corpuscular Volume 90 FL (80-99) Mean Corpuscular Hemoglobin 28.9 PG (27.0-31.0) Mean Corpuscular Hemoglobin Concent 32.0 G/DL (32.0-36.0) Red Cell Distribution Width 17.5 % (11.6-14.8) H Platelet Count 215 K/UL (150-450) Mean Platelet Volume 7.4 FL (6.5-10.1) Neutrophils (%) (Auto) 81.6 % (45.0-75.0) H Lymphocytes (%) (Auto) 10.9 % (20.0-45.0) L Monocytes (%) (Auto) 5.6 % (1.0-10.0) Eosinophils (%) (Auto) 0.3 % (0.0-3.0) Basophils (%) (Auto) 1.5 % (0.0-2.0) Erythrocyte Sedimentation Rate 49 MM/HR (0-20) H Prothrombin Time 11.5 SEC (9.30-11.50) Prothromb Time International Ratio 1.0 (0.9-1.1) Sodium Level 143 MMOL/L (136-145) Potassium Level 3.4 MMOL/L (3.5-5.1) L Chloride Level 100 MMOL/L (98-107) Carbon Dioxide Level 39 MMOL/L (21-32) H Anion Gap 3 mmol/L (5-15) L Blood Urea Nitrogen 20 mg/dL (7-18) H Creatinine 0.6 MG/DL (0.55-1.30) Estimat Glomerular Filtration Rate > 60 mL/min (>60) Glucose Level 117 MG/DL (74-106) H Calcium Level 8.3 MG/DL (8.5-10.1) L Total Bilirubin 0.6 MG/DL (0.2-1.0) Aspartate Amino Transf (AST/SGOT) 40 U/L (15-37) H Alanine Aminotransferase (ALT/SGPT) 136 U/L (12-78) H Alkaline Phosphatase 283 U/L (46-116) H Total Protein 5.1 G/DL (6.4-8.2) L Albumin 1.8 G/DL (3.4-5.0) L Globulin 3.3 g/dL Albumin/Globulin Ratio 0.5 (1.0-2.7) L Plan Problems: (1) Pneumonia (2) Staphylococcus aureus bacteremia (3) COVID-19 virus infection (4) Chest pain (5) Hypertension (6) Dehydration (7) Electrolyte imbalance (8) DMII (diabetes mellitus, type 2) (9) Protein malnutrition (10) Respiratory insufficiency Assessment & Plan: 64-year-old male with respiratory insufficiency intubated in an intensive care unit. Patient has been unable to safely wean off ventilatory support. Surgery called to evaluate for tracheostomy. After careful evaluation patient is a candidate for tracheostomy. In the meantime will obtain consent. If consent obtained will proceed with scheduling. Thank you for your participation's care will follow recommendations Booker Rausch Apr 16, 2020 11:13
--- NOTE | 2020-04-16 12:00 | NUR ---
NURSE NOTES: Pt. remain stable. Turned and repositioned. Occasionally opens eyes. No s/sx of distress noted.
--- NOTE | 2020-04-16 14:12 | Nephrology Progress Note ---
Assessment/Plan Problem List: (1) Dehydration (2) Electrolyte imbalance (3) COVID-19 virus infection (4) Pneumonia (5) DMII (diabetes mellitus, type 2) (6) Protein malnutrition Assessment Azotemia, hypernatremia Hypoalbuminemia Staff Otilia bacteremia COVID-19 isolation, pneumonia, bilateral infiltrate Hypertension Diabetes mellitus History of smoking Plan April 16: Girlfriend in the room. Patient awake. Intubated. Full code. Labs reviewed. Abnormal electrolyte addressed. Continue per consultants. April 15: Labs reviewed. Electrolytes and renal parameters stable. Patient full code. Continues to be intubated on ventilator. April 14: Status quo. Labs reviewed. Remains intubated on ventilator. Full code. Continue per consultants. April 13: Status quo. Labs reviewed. Renal parameters electrolytes stable. Continue per current treatment plan. April 12: On higher FiO2. Will resume Lasix daily. Continue to monitor electrolytes and renal parameters. Per consultants. April 11: FiO2 went up to 85%. Renal parameters and electrolytes reasonably well-maintained. Will monitor serum potassium. Will give IV Lasix. April 10: Status quo. Labs reviewed. Remains intubated on ventilator with FiO2 of 65%. Remains full code. Stable from renal standpoint to view. Repeat vitamin D level on April 08 pending April 09: Status quo. Labs reviewed. Stable from renal standpoint of view. Continue per consultants. April 08: Discussed with RN. Labs reviewed. Clinically improving. Requires lower PEEP. Continue per pulmonary. Continue to monitor renal parameters. April 07: Remains full code and on ventilator. Labs reviewed. Renal parameters and electrolytes stable. Continue per consultants. Blood pressure marginally improved. April 06: Full code. On ventilator. Blood pressure 80-90 systolic. IV Lasix discontinued. Free water through tube feeding ordered. Continue to monitor electrolytes and serum sodium. Down on fentanyl as possible. Discussed with PRIYANKA Brown. Clonidine patch discontinued. April 05: Status quo. Remains full code. Remains intubated. Labs reviewed. Renal parameters stable. Serum sodium 150 unchanged. Continue per consultants. April 04: Remains intubated and on ventilator. Remains full code. Labs reviewed. Serum sodium 150 unchanged. Renal parameters stable. Continue per ID and pulmonary. April 03: Intubated. On ventilator. Full code. Labs reviewed. Serum sodium 150 unchanged. Continue to monitor renal parameters. Continue per pulmonary and ID. April 02: Full code. On ventilator. Discussed with RN. Serum sodium slightly higher. Will cut down on IV Lasix. Continue per consultants. Continue to monitor renal parameters and electrolytes. April 01: Full code. Remains on ventilator. Labs reviewed. Stable from renal standpoint of view. Continue per consultants. March 31: Full code . Remains intubated on ventilator. Labs reviewed. Patient appears toxic. Discussed with RN. Maintenance IV discontinued. Medication list reviewed. Blood pressure medication stopped due to low blood pressure. Levemir insulin stopped. Continue monitor blood sugar and sliding scale insulin. March 30: Full code. On ventilator. Labs reviewed. Clonidine patch dose increased. Lasix increased. 3% saline 1 time ordered. Continue to monitor electrolytes and renal parameters. March 29: Remains full code. On mechanical ventilation. On tube feeding. Will DC TPN. Will start on maintenance IV fluid. Continue to monitor renal parameters. March 28: On BiPAP. Full code. On TPN. Labs reviewed. Discussed with pharmacy. Continue as is. Watch serum potassium. March 27: Remains on BiPAP. No chemistry panel done today. Full code. On TPN. Will check lab tomorrow. March 26: Remains on BiPAP. Remains on TPN. Labs reviewed. Electrolytes and chemistries within normal limits. Continue as is. March 25: Remains on TPN. Labs reviewed. Discussed with pharmacy. Change IV Protonix to p.o. Continue 3% saline infusion with Lasix. Patient full code. March 24: Continue to be on TPN. Labs are reviewed. Aim to collect electrolytes. Discussed with pharmacy. Continue current consultants. March 23: Continues to be on TPN. Labs reviewed. Electrolytes and chemistries all acceptable. Discussed with pharmacy. Continue current management. March 22: On TPN. Labs reviewed. Low sodium noted. 3% saline to be continued. Continue to monitor electrolytes. Discussed with pharmacy. March 21: On TPN. Labs reviewed. Continue 3% saline and Lasix for mild hyponatremia. Continue TPN as these. Discussed with pharmacy. March 20: Remains on TPN. Labs reviewed. Serum sodium higher on IV Lasix and 3% saline infusion. Continue TPN as is. Continue to monitor renal parameters and electrolytes. Discussed with Dr. Mata March 19: Remains on TPN. Labs reviewed. Serum sodium 128. Will give 3% saline with IV Lasix. Continue to monitor electrolytes. No change in TPN composition. Discussed with pharmacy. March 18: Remains on TPN. Labs reviewed. Discussed with pharmacist. Will give 3 doses of IV Lasix 20 mg every 8 hours. Continue to monitor serum sodium electrolytes uric acid. White blood cells down. Continue per consultants. March 17: On TPN. Labs reviewed. Discussed with pharmacist. Sodium content increase. Continue to monitor CMP. Patient continues to have leukocytosis. March 16: On TPN. Labs reviewed. Discussed with pharmacist. Appropriate changes made. Continue to monitor electrolytes. March 15: Remains on TPN. Labs reviewed. Discussed with pharmacist. Continue per current management. March 14: Remains on TPN. Labs reviewed, stable. Vitamin D level low, replacement ordered. Continue to monitor electrolytes and renal parameters. March 13: Patient remains on TPN. Discussed with pharmacist. TPN's sodium content adjusted. Labs reviewed. Continue to monitor electrolytes. Blood pressure remains stable. Continue per consultants. March 12: Patient on TPN. Labs reviewed. CPK remains elevated. Abnormal electrolytes and high blood sugar discussed with pharmacist and TPN adjusted. Continue to monitor labs. Oral Protonix added. Ibuprofen discontinued. Can continue to monitor electrolytes and chemistries. Levemir for high blood sugar added. March 11: Patient on TPN. Labs as of 11:15 AM is still pending. Continue per current treatment plan. Will check labs and adjust TPN as needed. Continue per consultants. March 10: Patient on TPN. Labs reviewed. Electrolytes overall stable. CPK is elevated. Will monitor electrolyte, CPK level, lipid panel. Continue per consultants. Discussed with pharmacist. Discussed with RN. Nutritional evaluation noted. Previously: D5W 100 cc an hour Monitor electrolytes renal parameters TPN and Intralipid ordered Will follow Continue per consultants Dietary consult requested Subjective ROS Limited/Unobtainable: Yes Objective Objective Last 24 Hour Vital Signs Date Time Temp Pulse Resp B/P (MAP) Pulse Ox O2 Delivery O2 Flow Rate FiO2 04/16/20 13:00 76 18 93/49 (64) 93 04/16/20 12:00 100 04/16/20 12:00 Mechanical Ventilator 04/16/20 12:00 73 04/16/20 12:00 98.7 74 18 84/45 (58) 94 04/16/20 11:34 18 93/48 Endotracheal Tube 100 04/16/20 11:00 74 18 90 04/16/20 11:00 75 18 93/48 (63) 92 04/16/20 10:57 18 93/48 Endotracheal Tube 100 04/16/20 10:34 18 104/52 Endotracheal Tube 100 04/16/20 10:00 83 18 104/52 (69) 89 04/16/20 09:57 18 104/52 Endotracheal Tube 100 04/16/20 09:34 18 118/68 Endotracheal Tube 100 04/16/20 09:00 88 18 118/61 (80) 90 04/16/20 08:57 18 118/61 Endotracheal Tube 100 04/16/20 08:28 18 106/60 Endotracheal Tube 100 04/16/20 08:00 100 04/16/20 08:00 87 04/16/20 08:00 98.6 72 18 106/60 (75) 90 04/16/20 08:00 Mechanical Ventilator 04/16/20 07:57 18 106/60 Endotracheal Tube 100 04/16/20 07:57 22 92/47 Endotracheal Tube 100 04/16/20 07:28 18 106/60 Endotracheal Tube 100 04/16/20 07:15 18 84/44 Endotracheal Tube 100 04/16/20 07:00 70 18 84/44 (57) 87 04/16/20 06:53 76 18 90 04/16/20 06:30 73 18 105/50 (68) 88 04/16/20 06:30 73 18 105/50 (68) 88 04/16/20 06:00 84 18 121/65 (83) 90 04/16/20 05:30 94 22 145/84 (104) 85 04/16/20 05:00 69 18 101/52 (68) 95 04/16/20 04:30 65 18 97/51 (66) 95 04/16/20 04:00 Mechanical Ventilator 04/16/20 04:00 79 04/16/20 04:00 66 18 94/50 (65) 95 04/16/20 04:00 66 18 94/50 (65) 95 04/16/20 04:00 100 04/16/20 03:30 66 18 95/52 (66) 95 04/16/20 03:10 65 18 90 04/16/20 03:00 66 18 96/55 (69) 94 04/16/20 03:00 66 18 96/55 (69) 94 04/16/20 02:30 66 18 100/53 (69) 95 04/16/20 02:28 18 91/51 Mechanical Ventilator 90 04/16/20 02:15 18 92/58 Mechanical Ventilator 90 04/16/20 02:00 64 18 91/51 (64) 93 04/16/20 01:30 65 18 92/52 (65) 93 04/16/20 01:15 18 127/68 Mechanical Ventilator 90 04/16/20 01:00 70 18 112/63 (79) 94 04/16/20 00:30 75 18 127/66 (86) 94 04/16/20 00:27 18 127/68 Mechanical Ventilator 90 04/16/20 00:15 18 103/53 Mechanical Ventilator 90 04/16/20 00:00 64 18 100/53 (69) 96 04/16/20 00:00 100 04/16/20 00:00 88 04/16/20 00:00 Mechanical Ventilator 04/16/20 00:00 64 18 100/53 (69) 96 04/15/20 23:45 62 18 95 04/15/20 23:30 61 18 103/53 (70) 96 04/15/20 23:15 61 18 97 04/15/20 23:15 18 98/54 Mechanical Ventilator 90 04/15/20 23:15 61 18 85 04/15/20 23:15 61 18 97 04/15/20 23:00 60 18 100/54 (69) 96 04/15/20 22:45 62 18 96 04/15/20 22:30 62 18 98/54 (69) 95 04/15/20 22:15 20 101/54 Mechanical Ventilator 90 04/15/20 22:15 64 18 95 04/15/20 22:00 65 18 104/57 (73) 95 04/15/20 22:00 65 18 104/57 (73) 95 04/15/20 21:30 71 18 122/74 (90) 97 04/15/20 21:15 70 18 96 04/15/20 21:00 70 18 123/71 (88) 98 04/15/20 21:00 70 18 123/71 (88) 98 04/15/20 20:45 70 18 97 04/15/20 20:30 68 18 125/68 (87) 98 04/15/20 20:15 68 18 99 04/15/20 20:09 18 94/54 Endotracheal Tube 15.0 90 04/15/20 20:00 91 04/15/20 20:00 Mechanical Ventilator 04/15/20 20:00 61 18 107/60 (76) 99 04/15/20 20:00 100 04/15/20 19:45 60 18 99 04/15/20 19:30 61 18 98/55 (69) 99 04/15/20 19:15 61 18 98 04/15/20 19:10 59 18 90 04/15/20 19:00 63 18 94/54 (67) 98 04/15/20 19:00 63 18 94/54 (67) 98 04/15/20 18:00 18 108/62 Endotracheal Tube 80 04/15/20 18:00 68 18 108/62 (77) 99 04/15/20 17:57 18 108/62 Endotracheal Tube 80 04/15/20 17:00 18 109/62 Endotracheal Tube 80 04/15/20 17:00 67 18 109/62 (78) 98 04/15/20 16:57 18 109/62 Endotracheal Tube 80 04/15/20 16:00 Mechanical Ventilator 04/15/20 16:00 100 04/15/20 16:00 18 135/68 Endotracheal Tube 80 04/15/20 16:00 97.9 77 18 135/68 (90) 99 04/15/20 16:00 73 04/15/20 15:57 18 135/68 Endotracheal Tube 80 04/15/20 15:34 69 18 90 04/15/20 15:00 84 21 158/90 (112) 100 04/15/20 15:00 21 158/90 Endotracheal Tube 80 04/15/20 14:57 21 158/90 Endotracheal Tube 80 Intake and Output 04/15/20 04/16/20 19:00 07:00 Intake Total 1450 ml 1190 ml Output Total 2090 ml 5600 ml Balance -640 ml -4410 ml Free Water 250 ml IV Total 600 ml 590 ml Tube Feeding 600 ml 600 ml Output Urine Total 2040 ml 5600 ml Stool Total 50 ml Current Medications Medications (Trade) Dose Ordered Sig/Dennis Route PRN Reason Start Time Stop Time Status Last Admin Dose Admin Acetaminophen (Tylenol) 650 mg Q4H PRN ORAL Temp >100.5 04/13/20 00:30 05/13/20 00:29 04/13/20 01:30 Bisacodyl (Dulcolax) 10 mg Q12H PRN RECTAL Constipation 03/18/20 16:45 06/16/20 16:44 Chlorhexidine Gluconate (Marlen-Hex 2%) 1 applic DAILY@2000 TOPIC 03/30/20 20:00 06/28/20 19:59 04/15/20 20:00 Dextrose (Dextrose 50%) 25 ml Q30M PRN IV Hypoglycemia 03/29/20 20:45 06/27/20 20:44 Dextrose (Dextrose 50%) 50 ml Q30M PRN IV Hypoglycemia 03/29/20 20:45 06/27/20 20:44 Enoxaparin Sodium (Lovenox) 80 mg EVERY 12 HOURS SUBQ 04/06/20 21:00 07/05/20 20:59 04/16/20 09:10 Fentanyl Citrate 250 ml @ 1 mls/hr Q24H IV 04/16/20 00:45 04/18/20 00:44 04/16/20 07:57 Hydralazine HCl (Apresoline) 10 mg Q4H PRN IV For High Blood Pressure 03/30/20 12:15 06/28/20 12:14 04/14/20 22:45 Insulin Aspart (NovoLOG) Q6HR SUBQ 03/30/20 00:00 06/28/20 00:00 04/15/20 12:25 Labetalol HCl (Normodyne) 10 mg Q4H PRN IV sbp greater tahtn 160 03/28/20 17:30 04/27/20 17:29 Methylprednisolone Sodium Succinate (Solu-MEDROL) 20 mg Q12HR IVP 04/12/20 21:00 06/20/20 20:59 04/16/20 09:09 Metoclopramide HCl (Reglan) 10 mg Q6H IVP 03/30/20 15:00 04/29/20 14:59 04/16/20 09:09 Micafungin Sodium 100 mg/Sodium Chloride 100 ml @ 100 mls/hr Q24H IVPB 04/09/20 15:00 04/22/20 23:59 04/15/20 15:33 Midazolam HCl 200 ml @ 0 mls/hr Q24H PRN IV Agitation 04/16/20 00:45 04/18/20 00:44 04/16/20 09:34 Pantoprazole (Protonix) 40 mg EVERY 12 HOURS IVP 04/01/20 21:00 05/01/20 20:59 04/16/20 09:09 Piperacillin Sod/ Tazobactam Sod 3.375 gm/Dextrose 110 ml @ 27.5 mls/hr EVERY 8 HOURS IVPB 04/14/20 14:00 04/19/20 13:59 04/16/20 06:06 Potassium Chloride 100 ml @ 50 mls/hr ONCE ONCE IVPB 04/16/20 13:15 04/16/20 15:14 04/16/20 13:26 Trimethoprim/ Sulfamethoxazole (Bactrim-DS) 1 tab Q24H ORAL 03/29/20 17:00 05/10/20 16:59 04/15/20 17:18 Vancomycin HCl (Vanco pharmacy to dose) 1 ea DAILY PRN MISC Per rx protocol 04/11/20 17:30 05/11/20 17:29 Vancomycin HCl 1 gm/Sodium Chloride 275 ml @ 183.708 mls/hr Q8H IVPB 04/12/20 18:30 04/17/20 18:29 04/16/20 11:01 Laboratory Tests 04/16/20 04:45: White Blood Count 5.0, Red Blood Count 3.34L, Hemoglobin 9.6L, Hematocrit 30.1L, Mean Corpuscular Volume 90, Mean Corpuscular Hemoglobin 28.9, Mean Corpuscular Hemoglobin Concent 32.0, Red Cell Distribution Width 17.5H, Platelet Count 215, Mean Platelet Volume 7.4, Neutrophils (%) (Auto) 81.6H, Lymphocytes (%) (Auto) 10.9L, Monocytes (%) (Auto) 5.6, Eosinophils (%) (Auto) 0.3, Basophils (%) (Auto) 1.5, Erythrocyte Sedimentation Rate 49H, Prothrombin Time 11.5, Prothromb Time International Ratio 1.0, Sodium Level 143, Potassium Level 3.4L, Chloride Level 100, Carbon Dioxide Level 39H, Anion Gap 3L, Blood Urea Nitrogen 20H, Creatinine 0.6, Estimat Glomerular Filtration Rate > 60, Glucose Level 117H, Calcium Level 8.3L, Total Bilirubin 0.6, Aspartate Amino Transf (AST/SGOT) 40H, Alanine Aminotransferase (ALT/SGPT) 136H, Alkaline Phosphatase 283H, Total Protein 5.1L, Albumin 1.8L, Globulin 3.3, Albumin/Globulin Ratio 0.5L Height (Feet): 5 Height (Inches): 10.00 Weight (Pounds): 240 General Appearance: mild distress EENT: other - Remains on ventilator Cardiovascular: normal rate Respiratory/Chest: decreased breath sounds Abdomen: distended Rubin Cooper MD Apr 16, 2020 14:12
--- NOTE | 2020-04-16 14:19 | NUR ---
NURSE NOTES: Seen by Dr. Cooper with new orders for labs in a.m.
--- NOTE | 2020-04-16 15:16 | NUR ---
NURSE NOTES: Seen by Dr. Rausch f/u for consent for upcoming possible Trach placement.
[2020-04-16] MEDS: Bactrim-DS 1 tab ORAL SCH (17:29)
--- NOTE | 2020-04-16 17:51 | NUR ---
NURSE NOTES: Pt. remain stable. V/S WNL. F/u with family if ok for Trach. placement.
--- NOTE | 2020-04-16 19:14 | NUR ---
NURSE HAND-OFF REPORT: Latest Vital Signs: Temperature 99.0 , Pulse 120 , B/P 125 /73 , Respiratory Rate 23 , O2 SAT 99 , Endotracheal Tube, O2 Flow Rate . Vital Sign Comment: wnl EKG Rhythm: Sinus Tachycardia Rhythm change?: N Notified?: Courtney Paige MD Response: Message left await call Latest Hassan Fall Score: 50 Fall Risk: High Risk Safety Measures: Call light Within Reach, Bed Alarm Zone 3, Side Rails Side Rails x3, Bed position Low and Locked. Fall Precautions: Yellow Socks Yellow Gown Door Sign Patient Fall Education Report given to Emelia Correa RN.
--- NOTE | 2020-04-16 19:30 | NUR ---
NURSE NOTES: Rn received report from Alivia MATHEW. Patient in bed sedated and resting. Patient has one arm restrained. Patient on a mechanical ventilator with settings of ac 18 tidal volume 750 FIO2 at 100% and a PEEP 5. Patient o2 sats at this time around 95%. Patient has Fentanyl and Versed infusing for sedation. Patient has an OG with Glucerna 1.2 infusing @50ml/hr which is goal. Patient repositioned for comfort. RN will continue to monitor.
--- NOTE | 2020-04-16 20:04 | Cardiology Progress Note ---
Assessment/Plan Assessment/Plan respiratory failure, unresponsiveness main issues are not cardiac Subjective Subjective the patient is deeply comatose Objective Last 24 Hour Vital Signs Date Time Temp Pulse Resp B/P (MAP) Pulse Ox O2 Delivery O2 Flow Rate FiO2 04/16/20 19:15 111 21 90 04/16/20 19:00 116 21 130/73 (92) 99 04/16/20 18:30 124 19 135/82 (99) 99 04/16/20 18:11 23 125/73 Endotracheal Tube 100 04/16/20 18:08 23 125/76 100 04/16/20 18:00 116 21 125/76 (92) 98 04/16/20 18:00 120 19 125/76 (92) 99 04/16/20 17:00 119 23 132/70 (90) 97 04/16/20 16:57 23 132/70 Endotracheal Tube 100 04/16/20 16:34 15 83/55 Endotracheal Tube 100 04/16/20 16:00 116 04/16/20 16:00 99.0 113 15 83/55 (64) 94 04/16/20 16:00 Mechanical Ventilator 04/16/20 16:00 100 04/16/20 15:57 19 94/63 Endotracheal Tube 100 04/16/20 15:34 19 94/63 Endotracheal Tube 100 04/16/20 15:28 124 18 90 04/16/20 15:00 143 23 227/103 (144) 89 04/16/20 14:57 23 227/103 Endotracheal Tube 100 04/16/20 14:34 30 184/92 Endotracheal Tube 100 04/16/20 14:00 128 30 184/92 (122) 94 04/16/20 13:57 30 184/92 Endotracheal Tube 100 04/16/20 13:34 18 93/49 Endotracheal Tube 100 04/16/20 13:00 76 18 93/49 (64) 93 04/16/20 12:57 18 93/49 Endotracheal Tube 100 04/16/20 12:34 18 84/45 Endotracheal Tube 100 04/16/20 12:00 100 04/16/20 12:00 Mechanical Ventilator 04/16/20 12:00 73 04/16/20 12:00 98.7 74 18 84/45 (58) 94 04/16/20 11:57 18 84/45 Endotracheal Tube 100 04/16/20 11:34 18 93/48 Endotracheal Tube 100 04/16/20 11:00 74 18 90 04/16/20 11:00 75 18 93/48 (63) 92 04/16/20 10:57 18 93/48 Endotracheal Tube 100 04/16/20 10:34 18 104/52 Endotracheal Tube 100 04/16/20 10:00 83 18 104/52 (69) 89 04/16/20 09:57 18 104/52 Endotracheal Tube 100 04/16/20 09:34 18 118/68 Endotracheal Tube 100 04/16/20 09:00 88 18 118/61 (80) 90 04/16/20 08:57 18 118/61 Endotracheal Tube 100 04/16/20 08:28 18 106/60 Endotracheal Tube 100 04/16/20 08:00 100 04/16/20 08:00 87 04/16/20 08:00 98.6 72 18 106/60 (75) 90 04/16/20 08:00 Mechanical Ventilator 04/16/20 07:57 18 106/60 Endotracheal Tube 100 04/16/20 07:57 22 92/47 Endotracheal Tube 100 04/16/20 07:28 18 106/60 Endotracheal Tube 100 04/16/20 07:15 18 84/44 Endotracheal Tube 100 04/16/20 07:00 70 18 84/44 (57) 87 04/16/20 06:53 76 18 90 04/16/20 06:30 73 18 105/50 (68) 88 04/16/20 06:30 73 18 105/50 (68) 88 04/16/20 06:00 84 18 121/65 (83) 90 04/16/20 05:30 94 22 145/84 (104) 85 04/16/20 05:00 69 18 101/52 (68) 95 04/16/20 04:30 65 18 97/51 (66) 95 04/16/20 04:00 Mechanical Ventilator 04/16/20 04:00 79 04/16/20 04:00 66 18 94/50 (65) 95 04/16/20 04:00 66 18 94/50 (65) 95 04/16/20 04:00 100 04/16/20 03:30 66 18 95/52 (66) 95 04/16/20 03:10 65 18 90 04/16/20 03:00 66 18 96/55 (69) 94 04/16/20 03:00 66 18 96/55 (69) 94 04/16/20 02:30 66 18 100/53 (69) 95 04/16/20 02:28 18 91/51 Mechanical Ventilator 90 04/16/20 02:15 18 92/58 Mechanical Ventilator 90 04/16/20 02:00 64 18 91/51 (64) 93 04/16/20 01:30 65 18 92/52 (65) 93 04/16/20 01:15 18 127/68 Mechanical Ventilator 90 04/16/20 01:00 70 18 112/63 (79) 94 04/16/20 00:30 75 18 127/66 (86) 94 04/16/20 00:27 18 127/68 Mechanical Ventilator 90 04/16/20 00:15 18 103/53 Mechanical Ventilator 90 04/16/20 00:00 64 18 100/53 (69) 96 04/16/20 00:00 100 04/16/20 00:00 88 04/16/20 00:00 Mechanical Ventilator 04/16/20 00:00 64 18 100/53 (69) 96 04/15/20 23:45 62 18 95 04/15/20 23:30 61 18 103/53 (70) 96 04/15/20 23:15 61 18 97 04/15/20 23:15 18 98/54 Mechanical Ventilator 90 04/15/20 23:15 61 18 85 04/15/20 23:15 61 18 97 04/15/20 23:00 60 18 100/54 (69) 96 04/15/20 22:45 62 18 96 04/15/20 22:30 62 18 98/54 (69) 95 04/15/20 22:15 20 101/54 Mechanical Ventilator 90 04/15/20 22:15 64 18 95 04/15/20 22:00 65 18 104/57 (73) 95 04/15/20 22:00 65 18 104/57 (73) 95 04/15/20 21:30 71 18 122/74 (90) 97 04/15/20 21:15 70 18 96 04/15/20 21:00 70 18 123/71 (88) 98 04/15/20 21:00 70 18 123/71 (88) 98 04/15/20 20:45 70 18 97 04/15/20 20:30 68 18 125/68 (87) 98 04/15/20 20:15 68 18 99 04/15/20 20:09 18 94/54 Endotracheal Tube 15.0 90 General Appearance: on vent, other - comatose EENT: PERRL/EOMI Neck: supple Rhythm: ST Cardiovascular: tachycardia Respiratory/Chest: crackles/rales, rhonchi - bilaterally Abdomen: distended Extremities: severe edema Intake and Output 04/15/20 04/16/20 19:00 07:00 Intake Total 1450 ml 1190 ml Output Total 2090 ml 5600 ml Balance -640 ml -4410 ml Free Water 250 ml IV Total 600 ml 590 ml Tube Feeding 600 ml 600 ml Output Urine Total 2040 ml 5600 ml Stool Total 50 ml Laboratory Tests Test 04/16/20 04:45 04/16/20 17:35 White Blood Count 5.0 K/UL (4.8-10.8) Red Blood Count 3.34 M/UL (4.70-6.10) L Hemoglobin 9.6 G/DL (14.2-18.0) L Hematocrit 30.1 % (42.0-52.0) L Mean Corpuscular Volume 90 FL (80-99) Mean Corpuscular Hemoglobin 28.9 PG (27.0-31.0) Mean Corpuscular Hemoglobin Concent 32.0 G/DL (32.0-36.0) Red Cell Distribution Width 17.5 % (11.6-14.8) H Platelet Count 215 K/UL (150-450) Mean Platelet Volume 7.4 FL (6.5-10.1) Neutrophils (%) (Auto) 81.6 % (45.0-75.0) H Lymphocytes (%) (Auto) 10.9 % (20.0-45.0) L Monocytes (%) (Auto) 5.6 % (1.0-10.0) Eosinophils (%) (Auto) 0.3 % (0.0-3.0) Basophils (%) (Auto) 1.5 % (0.0-2.0) Erythrocyte Sedimentation Rate 49 MM/HR (0-20) H Prothrombin Time 11.5 SEC (9.30-11.50) Prothromb Time International Ratio 1.0 (0.9-1.1) Sodium Level 143 MMOL/L (136-145) Potassium Level 3.4 MMOL/L (3.5-5.1) L Chloride Level 100 MMOL/L (98-107) Carbon Dioxide Level 39 MMOL/L (21-32) H Anion Gap 3 mmol/L (5-15) L Blood Urea Nitrogen 20 mg/dL (7-18) H Creatinine 0.6 MG/DL (0.55-1.30) Estimat Glomerular Filtration Rate > 60 mL/min (>60) Glucose Level 117 MG/DL (74-106) H Calcium Level 8.3 MG/DL (8.5-10.1) L Total Bilirubin 0.6 MG/DL (0.2-1.0) Aspartate Amino Transf (AST/SGOT) 40 U/L (15-37) H Alanine Aminotransferase (ALT/SGPT) 136 U/L (12-78) H Alkaline Phosphatase 283 U/L (46-116) H Total Protein 5.1 G/DL (6.4-8.2) L Albumin 1.8 G/DL (3.4-5.0) L Globulin 3.3 g/dL Albumin/Globulin Ratio 0.5 (1.0-2.7) L Vancomycin Level Trough 23.1 ug/mL (5.0-12.0) H Microbiology Date/Time Source Procedure Growth Status 04/14/20 16:35 Stool Clostridium difficile Toxin Assay - Final Complete Cha Chopra MD Apr 16, 2020 20:04
[2020-04-16] MEDS: Dyna-Hex 2% Top Sol 2oz TOPIC SCH (20:13)
--- NOTE | 2020-04-16 21:30 | NUR ---
NURSE NOTES: Patient vitals stable at this time. RT trying to wean FIO2. Currently at 90%. Patient repositioned. RN will continue to monitor.
--- NOTE | 2020-04-16 23:30 | NUR ---
NURSE NOTES: Patient vitals stable at this time. Patient desats to low 70's when turning to reposition. RN will continue to monitor.
[2020-04-17] VITALS (32 sets, daily range): BP systolic 90–167; BP diastolic 50–81
--- NOTE | 2020-04-17 01:30 | NUR ---
NURSE NOTES: Patient resting. Patient vitals stable. Patient repositioned. RN will continue to monitor.
[2020-04-17] MEDS: Versed 100mg/NS 200ml 200 ML IV PRN ×4 (01:32→23:03)
[2020-04-17] MEDS: Metoclopramide 10mg/2ml Inj IVP SCH ×4 (03:04→20:38)
[2020-04-17] MEDS: fentaNYL 2500mcg/NS 250ml 250 ML IV SCH ×3 (03:06→22:31)
--- NOTE | 2020-04-17 03:30 | NUR ---
NURSE NOTES: Patient vitals stable. Patient sleeping. Tube feeding changed and updated. Residual of 100. Patient repositioned. RN will continue to monitor.
[2020-04-17] MEDS: NovoLOG Insulin Flexpen SUBQ SCH ×4 (05:30→23:43)
--- NOTE | 2020-04-17 05:30 | NUR ---
NURSE NOTES: Patient vitals stable. Patient sedation infusing. Bp a little low. MAP is above 50. RN will continue to monitor
[2020-04-17] MEDS: Vancomycin 750mg/NS 275ml IVPB SCH ×4 (05:31→13:29)
[2020-04-17] MEDS: Piperacillin/Tazobactam 3.375 GM in D5W 110 ML IVPB SCH ×3 (05:56→21:44)
[2020-04-17 06:44] LABS: BASOPHILS % (AUTO) 0.3 % (0.0-2.0); HEMATOCRIT 30.9 % (42.0-52.0); HEMOGLOBIN 9.8 G/DL (14.2-18.0); LYMPHOCYTES % (AUTO) 12.9 % (20.0-45.0); MEAN CORPUSCULAR VOLUME 89 FL (80-99); MONOCYTES % (AUTO) 4.6 % (1.0-10.0); NEUTROPHILS % (AUTO) 82.1 % (45.0-75.0); PLATELET COUNT 227 K/UL (150-450); RED BLOOD COUNT 3.47 M/UL (4.70-6.10); RED CELL DISTRIBUTION WIDTH 17.3 % (11.6-14.8)
--- NOTE | 2020-04-17 07:16 | NUR ---
NURSE HAND-OFF REPORT: Latest Vital Signs: Temperature 99.4 , Pulse 71 , B/P 96 /52 , Respiratory Rate 18 , O2 SAT 93 , Mechanical Ventilator, O2 Flow Rate . Vital Sign Comment: EKG Rhythm: NSR Rhythm change?: N Notified?: Courtney Paige MD Response: Message left await call Latest Hassan Fall Score: 50 Fall Risk: High Risk Safety Measures: Call light Within Reach, Bed Alarm Zone 3, Side Rails Side Rails x3, Bed position Low and Locked. Fall Precautions: Yellow Socks Yellow Gown Door Sign Patient Fall Education Report given to Ben.
--- NOTE | 2020-04-17 07:17 | NUR ---
NURSE NOTES: Received bedside report from PRIYANKA Crenshaw. Pt's VSS, no signs of distress noted. Pt sedated but opens eyes spontaneously, able to move right upper extremity. Pt SR on the crm technical lead, HR between 70-80. Pt's respirations even and unlabored, ETT size 8 at 25 cm lip line with the following vent settings: A/C 18, T/V 750, 90% FiO2, Peep 5, O2 sat between 90-96%. Pt has Glucerna 1.5 running at 50mL/hr via OGT, no residual noted. Pt has rectal tube, liquid brown stool noted. Skin alterations noted in chart and covered with optifoam. Pt has PIV LFA 18g, no signs of complication noted. Pt has ALBERT PICC, no signs of infection or complication noted from site, dressing clean dry and intact. Pt has Fentanyl drip running at 300mcg/hr and Versed at 15mg/hr. Pt has right hand restraints, no signs of injury noted from extremity. HOB at 30 degrees. Bed locked and in lowest position. Safety precautions maintained. Will continue to monitor. Addendum: 04/17/20 at 1241 by Mariel Weiss RN NURSE NOTES: Received bedside report from PRIYANKA Crenshaw. Pt's VSS, no signs of distress noted. Pt sedated but opens eyes spontaneously, able to move right upper extremity. Pt SR on the crm technical lead, HR between 70-80. Pt's respirations even and unlabored, ETT size 8 at 25 cm lip line with the following vent settings: A/C 18, T/V 750, 90% FiO2, Peep 5, O2 sat between 90-96%. Pt has Glucerna 1.5 running at 50mL/hr via OGT, no residual noted. Pt has rectal tube, liquid brown stool noted. Pt has joseph catheter, draining well, dark yellow urine noted. Skin alterations noted in chart and covered with optifoam. Pt has PIV LFA 18g, no signs of complication noted. Pt has ALBERT PICC, no signs of infection or complication noted from site, dressing clean dry and intact. Pt has Fentanyl drip running at 300mcg/hr and Versed at 15mg/hr. Pt has right hand restraints, no signs of injury noted from extremity. HOB at 30 degrees. Bed locked and in lowest position. Safety precautions maintained. Will continue to monitor.
[2020-04-17 07:31] LABS: ALANINE AMINOTRANSFERASE 143 U/L (12-78); ALBUMIN 1.9 G/DL (3.4-5.0); ALBUMIN/GLOBULIN RATIO 0.6 (1.0-2.7); ALKALINE PHOSPHATASE 352 U/L (46-116); ANION GAP 1 mmol/L (5-15); ASPARTATE AMINO TRANSFERASE 37 U/L (15-37); BILIRUBIN,TOTAL 0.7 MG/DL (0.2-1.0); BLOOD UREA NITROGEN 21 mg/dL (7-18); CALCIUM 8.3 MG/DL (8.5-10.1); CARBON DIOXIDE 40 MMOL/L (21-32); CHLORIDE 100 MMOL/L (98-107); CREATININE 0.5 MG/DL (0.55-1.30); PHOSPHORUS 3.9 MG/DL (2.5-4.9); POTASSIUM 3.5 MMOL/L (3.5-5.1); SODIUM 142 MMOL/L (136-145)
[2020-04-17] MEDS: Solu-MEDROL 40mg Inj IVP SCH ×2 (09:47→20:38)
[2020-04-17] MEDS: Enoxaparin 80mg Inj SUBQ SCH ×2 (09:47→20:39)
[2020-04-17] MEDS: Pantoprazole Inj IVP SCH ×2 (09:47→20:38)
--- NOTE | 2020-04-17 09:50 | NUR ---
NURSE NOTES: Pt's OGT placement checked, tip of tube in stomach, no residual noted. Pt's VSS, afebrile. Scheduled medications given per MD order, pt tolerated well. Will continue to monitor.
--- NOTE | 2020-04-17 10:05 | NUR ---
NURSE NOTES: MD Mata at bedside to assess pt. Updated MD regarding pt's status. Made MD aware pt's last ABG was 3 days ago 04/14, no new orders received. Will continue to monitor pt.
--- NOTE | 2020-04-17 10:38 | Pulmonology Progress Note ---
Subjective ROS Limited/Unobtainable: Yes Interval Events: Intubated 03/28/20 Constitutional: Reports: fatigue, other - on vent, no pressors ; Denies: fever HEENT: Repors: no symptoms Respiratory: Reports: dry cough, shortness of breath Cardiovascular: Reports: no symptoms Gastrointestinal/Abdominal: Reports: diarrhea, other - rectal tube ; Denies: nausea, vomiting Psychiatric: Reports: other - NA Skin: Denies: rash Musculoskeletal: Reports: other - NA Allergies: Coded Allergies: No Known Allergies (Unverified , 02/05/20) Objective Last 24 Hour Vital Signs Date Time Temp Pulse Resp B/P (MAP) Pulse Ox O2 Delivery O2 Flow Rate FiO2 04/17/20 10:00 89 19 135/80 (98) 92 04/17/20 09:24 25 101/83 Mechanical Ventilator 90 04/17/20 09:00 71 18 107/58 (74) 93 04/17/20 08:00 Mechanical Ventilator 04/17/20 08:00 98.3 69 18 110/58 (75) 94 04/17/20 07:00 71 18 96/52 (67) 93 04/17/20 06:45 73 18 92 04/17/20 06:30 74 18 97/51 (66) 92 04/17/20 06:15 76 18 93 04/17/20 06:00 77 18 106/53 (70) 94 04/17/20 06:00 77 18 106/53 (70) 94 04/17/20 05:30 71 18 99/51 (67) 94 04/17/20 05:28 70 18 90 04/17/20 05:15 70 18 93 04/17/20 05:00 72 18 100/59 (73) 94 04/17/20 04:45 74 18 94 04/17/20 04:30 72 18 102/56 (71) 95 04/17/20 04:00 90 04/17/20 04:00 78 04/17/20 04:00 99.4 75 18 109/62 (78) 95 04/17/20 04:00 Mechanical Ventilator 04/17/20 03:30 74 18 104/61 (75) 95 04/17/20 03:23 74 18 90 04/17/20 03:06 18 111/63 Mechanical Ventilator 100 04/17/20 03:00 74 18 109/61 (77) 95 04/17/20 02:30 83 18 112/61 (78) 95 04/17/20 02:00 90 18 124/68 (86) 94 04/17/20 01:32 22 133/72 Mechanical Ventilator 90 04/17/20 01:30 93 17 140/74 (96) 93 04/17/20 01:21 94 18 90 04/17/20 01:00 92 18 133/76 (95) 95 04/17/20 00:30 85 18 117/61 (79) 96 04/17/20 00:00 Mechanical Ventilator 04/17/20 00:00 80 18 93/53 (66) 95 04/17/20 00:00 90 04/17/20 00:00 99.6 80 18 93/53 (66) 95 04/17/20 00:00 83 04/16/20 23:30 79 18 97/56 (70) 97 04/16/20 23:18 79 18 90 04/16/20 23:00 79 18 91/55 (67) 99 04/16/20 22:30 85 18 90/55 (67) 99 04/16/20 22:15 85 18 98 04/16/20 22:00 85 18 95/56 (69) 98 04/16/20 21:45 88 18 96 04/16/20 21:45 88 18 96 04/16/20 21:43 90 18 109/62 (78) 97 04/16/20 21:30 80 18 81/49 (60) 97 04/16/20 21:30 80 18 81/49 (60) 97 04/16/20 21:29 81 18 82/50 (61) 97 04/16/20 21:15 86 18 90 04/16/20 21:11 18 91/58 Mechanical Ventilator 100 04/16/20 21:08 18 91/58 Mechanical Ventilator 100 04/16/20 21:00 86 18 82/51 (61) 96 04/16/20 20:32 100 18 95/52 (66) 98 04/16/20 20:30 100 18 88/55 (66) 98 04/16/20 20:11 18 11/64 Mechanical Ventilator 100 04/16/20 20:08 18 111/64 Mechanical Ventilator 100 04/16/20 20:00 109 04/16/20 20:00 108 20 118/66 (83) 99 04/16/20 20:00 Mechanical Ventilator 04/16/20 20:00 100 04/16/20 20:00 108 20 118/66 (83) 99 04/16/20 19:30 113 21 123/70 (87) 99 04/16/20 19:15 111 21 90 04/16/20 19:11 18 120/63 Mechanical Ventilator 100 04/16/20 19:08 18 120/63 Mechanical Ventilator 100 04/16/20 19:00 116 21 130/73 (92) 99 04/16/20 19:00 116 21 130/73 (92) 99 04/16/20 18:30 124 19 135/82 (99) 99 04/16/20 18:11 23 125/73 Endotracheal Tube 100 04/16/20 18:08 23 125/76 100 04/16/20 18:00 116 21 125/76 (92) 98 04/16/20 18:00 120 19 125/76 (92) 99 04/16/20 17:00 119 23 132/70 (90) 97 04/16/20 16:57 23 132/70 Endotracheal Tube 100 04/16/20 16:34 15 83/55 Endotracheal Tube 100 04/16/20 16:00 116 04/16/20 16:00 99.0 113 15 83/55 (64) 94 04/16/20 16:00 Mechanical Ventilator 04/16/20 16:00 100 04/16/20 15:57 19 94/63 Endotracheal Tube 100 04/16/20 15:34 19 94/63 Endotracheal Tube 100 04/16/20 15:28 124 18 90 04/16/20 15:00 143 23 227/103 (144) 89 04/16/20 14:57 23 227/103 Endotracheal Tube 100 04/16/20 14:34 30 184/92 Endotracheal Tube 100 04/16/20 14:00 128 30 184/92 (122) 94 04/16/20 13:57 30 184/92 Endotracheal Tube 100 04/16/20 13:34 18 93/49 Endotracheal Tube 100 04/16/20 13:00 76 18 93/49 (64) 93 04/16/20 12:57 18 93/49 Endotracheal Tube 100 04/16/20 12:34 18 84/45 Endotracheal Tube 100 04/16/20 12:00 100 04/16/20 12:00 Mechanical Ventilator 04/16/20 12:00 73 04/16/20 12:00 98.7 74 18 84/45 (58) 94 04/16/20 11:57 18 84/45 Endotracheal Tube 100 04/16/20 11:34 18 93/48 Endotracheal Tube 100 04/16/20 11:00 74 18 90 04/16/20 11:00 75 18 93/48 (63) 92 04/16/20 10:57 18 93/48 Endotracheal Tube 100 Intake and Output 04/16/20 04/17/20 19:00 07:00 Intake Total 1600 ml 1230 ml Output Total 2700 ml 1700 ml Balance -1100 ml -470 ml Free Water 400 ml IV Total 600 ml 680 ml Tube Feeding 600 ml 550 ml Output Urine Total 2650 ml 1700 ml Stool Total 50 ml General Appearance: WD/WN, no acute distress HEENT: normocephalic, atraumatic Respiratory: chest wall non-tender Cardiovascular: normal rate, regular rhythm Abdomen: normal bowel sounds, soft, non tender, other - obese Microbiology Date/Time Source Procedure Growth Status 04/14/20 16:35 Stool Clostridium difficile Toxin Assay - Final Complete Laboratory Tests 04/16/20 17:35: Vancomycin Level Trough 23.1H 04/17/20 05:18: White Blood Count 6.0, Red Blood Count 3.47L, Hemoglobin 9.8L, Hematocrit 30.9L, Mean Corpuscular Volume 89, Mean Corpuscular Hemoglobin 28.4, Mean Corpuscular Hemoglobin Concent 31.8L, Red Cell Distribution Width 17.3H, Platelet Count 227, Mean Platelet Volume 7.4, Neutrophils (%) (Auto) 82.1H, Lymphocytes (%) (Auto) 12.9L, Monocytes (%) (Auto) 4.6, Eosinophils (%) (Auto) 0.0, Basophils (%) (Auto) 0.3, Sodium Level 142, Potassium Level 3.5, Chloride Level 100, Carbon Dioxide Level 40H, Anion Gap 1L, Blood Urea Nitrogen 21H, Creatinine 0.5L, Estimat Glomerular Filtration Rate > 60, Glucose Level 113H, Calcium Level 8.3L, Phosphorus Level 3.9, Magnesium Level 2.2, Total Bilirubin 0.7, Aspartate Amino Transf (AST/SGOT) 37, Alanine Aminotransferase (ALT/SGPT) 143H, Alkaline Phosphatase 352H, C-Reactive Protein, Quantitative 5.2H, Pro-B-Type Natriuretic Peptide 1221H, Total Protein 5.2L, Albumin 1.9L, Globulin 3.3, Albumin/Globulin Ratio 0.6L Current Medications Medications (Trade) Dose Ordered Sig/Dennis Route PRN Reason Start Time Stop Time Status Last Admin Dose Admin Acetaminophen (Tylenol) 650 mg Q4H PRN ORAL Temp >100.5 04/13/20 00:30 05/13/20 00:29 04/13/20 01:30 Bisacodyl (Dulcolax) 10 mg Q12H PRN RECTAL Constipation 03/18/20 16:45 06/16/20 16:44 Chlorhexidine Gluconate (Marlen-Hex 2%) 1 applic DAILY@2000 TOPIC 03/30/20 20:00 06/28/20 19:59 04/16/20 20:13 Dextrose (Dextrose 50%) 25 ml Q30M PRN IV Hypoglycemia 03/29/20 20:45 06/27/20 20:44 Dextrose (Dextrose 50%) 50 ml Q30M PRN IV Hypoglycemia 03/29/20 20:45 06/27/20 20:44 Enoxaparin Sodium (Lovenox) 80 mg EVERY 12 HOURS SUBQ 04/06/20 21:00 07/05/20 20:59 04/17/20 09:47 Fentanyl Citrate 250 ml @ 1 mls/hr Q24H IV 04/16/20 00:45 04/18/20 00:44 04/17/20 03:06 Hydralazine HCl (Apresoline) 10 mg Q4H PRN IV For High Blood Pressure 03/30/20 12:15 06/28/20 12:14 04/14/20 22:45 Insulin Aspart (NovoLOG) Q6HR SUBQ 03/30/20 00:00 06/28/20 00:00 04/16/20 23:39 Labetalol HCl (Normodyne) 10 mg Q4H PRN IV sbp greater tahtn 160 03/28/20 17:30 04/27/20 17:29 Methylprednisolone Sodium Succinate (Solu-MEDROL) 20 mg Q12HR IVP 04/12/20 21:00 06/20/20 20:59 04/17/20 09:47 Metoclopramide HCl (Reglan) 10 mg Q6H IVP 03/30/20 15:00 04/29/20 14:59 04/17/20 09:47 Micafungin Sodium 100 mg/Sodium Chloride 100 ml @ 100 mls/hr Q24H IVPB 04/09/20 15:00 04/22/20 23:59 04/16/20 15:48 Midazolam HCl 200 ml @ 0 mls/hr Q24H PRN IV Agitation 04/16/20 00:45 04/18/20 00:44 04/17/20 09:24 Pantoprazole (Protonix) 40 mg EVERY 12 HOURS IVP 04/01/20 21:00 05/01/20 20:59 04/17/20 09:47 Piperacillin Sod/ Tazobactam Sod 3.375 gm/Dextrose 110 ml @ 27.5 mls/hr EVERY 8 HOURS IVPB 04/14/20 14:00 04/19/20 13:59 04/17/20 05:56 Trimethoprim/ Sulfamethoxazole (Bactrim-DS) 1 tab Q24H ORAL 03/29/20 17:00 05/10/20 16:59 04/16/20 17:29 Vancomycin HCl (Vanco pharmacy to dose) 1 ea DAILY PRN MISC Per rx protocol 04/11/20 17:30 05/11/20 17:29 Vancomycin HCl 750 mg/Sodium Chloride 275 ml @ 183.333 mls/hr Q8HR IVPB 04/17/20 06:00 04/22/20 05:59 04/17/20 05:31 Assessment/Plan Assessment/Plan Assessment/Plan 1.COVID-19 pneumonia. - Completed specific therapies - On solumedrol 2. DVT ppx - on lovenox 3. Hypertension - no longer on meds - Not requiring pressors 4. Leukocytosis; - ID following - On abx - Budding yeast on blood CS 5. Elevated LFT - positive Hep C; treated in the past with IF 6. Respiratory failure -Intubated 03/28/20 -Family aware - Prognosis guarded - Vt 750; rate 18 -On sedation 7. Discussed with cardiology -No evidence for cardiac dysfunction or PE -tachycardic; will increase sedation 8. AMS -back on sedation - has apparent left arm paresis - Will consider CT brain when more stable S/p new PICC line On abx Slowly improving oxygenation Noted left upper extremity swelling. Has DVT; on full dose Lovenox Continue sedation, DC propofol given high triglycerides. Continue fentanyl and Versed. Saturations plummeted 04/12/20 when patient became agitated Now fully sedated on 90% FiO2 ; PEEP 5 Intubated now for 2 weeks Discussed tracheostomy with surgery Will decrease diuresis; had diuresed neg 4 L last 48 hours CXR shows fine interstitial edema John Mata MD Apr 17, 2020 10:38
--- NOTE | 2020-04-17 10:52 | Cardiology Progress Note ---
Assessment/Plan Assessment/Plan Acute covid 19 pneumonia hypoxemia infiltrate bilat bacteremia hypernatremia / hyponatremia mild abn lfts tachy post intubation fever fungemia dvt upper ext now on 90 % fio2 , [address] fry discussing trach full sedated with fentanyl and versed not febrile now hypoxemia unlikely cardiac related tube feeding being tolerated echo reviewed last on 04/06 still shows normal lv function no valve pathology cxr still showing bilateral lower lobe infiltrates tele reviewed sinus remains critical now is on full dose anticoag due to dvt ue s/p diuresis of about 7 liter inteh past 48 hours cr is stable saturating at 100% whiel sedated on the vent but drops sat when being cleaed bpat time on the lower end of specturm c diff neg d/w rn not [facility] secretion now 91% sat on 90% oxygen covid pcr negative , however considering that it took 3 tests to finally initially identify his covid infection i am not sure if we can trust Subjective Subjective per rn Ptresting quietly in bed sedated,noted no resp distress orally intubated,ETT Objective Last 24 Hour Vital Signs Date Time Temp Pulse Resp B/P (MAP) Pulse Ox O2 Delivery O2 Flow Rate FiO2 04/17/20 10:00 89 19 135/80 (98) 92 04/17/20 09:24 25 101/83 Mechanical Ventilator 90 04/17/20 09:00 71 18 107/58 (74) 93 04/17/20 08:03 68 04/17/20 08:00 90 04/17/20 08:00 Mechanical Ventilator 04/17/20 08:00 98.3 69 18 110/58 (75) 94 04/17/20 07:00 71 18 96/52 (67) 93 04/17/20 06:45 73 18 92 04/17/20 06:30 74 18 97/51 (66) 92 04/17/20 06:15 76 18 93 04/17/20 06:00 77 18 106/53 (70) 94 04/17/20 06:00 77 18 106/53 (70) 94 04/17/20 05:30 71 18 99/51 (67) 94 04/17/20 05:28 70 18 90 04/17/20 05:15 70 18 93 04/17/20 05:00 72 18 100/59 (73) 94 04/17/20 04:45 74 18 94 04/17/20 04:30 72 18 102/56 (71) 95 04/17/20 04:00 90 04/17/20 04:00 78 04/17/20 04:00 99.4 75 18 109/62 (78) 95 04/17/20 04:00 Mechanical Ventilator 04/17/20 03:30 74 18 104/61 (75) 95 04/17/20 03:23 74 18 90 04/17/20 03:06 18 111/63 Mechanical Ventilator 100 04/17/20 03:00 74 18 109/61 (77) 95 04/17/20 02:30 83 18 112/61 (78) 95 04/17/20 02:00 90 18 124/68 (86) 94 04/17/20 01:32 22 133/72 Mechanical Ventilator 90 04/17/20 01:30 93 17 140/74 (96) 93 04/17/20 01:21 94 18 90 04/17/20 01:00 92 18 133/76 (95) 95 04/17/20 00:30 85 18 117/61 (79) 96 04/17/20 00:00 Mechanical Ventilator 04/17/20 00:00 80 18 93/53 (66) 95 04/17/20 00:00 90 04/17/20 00:00 99.6 80 18 93/53 (66) 95 04/17/20 00:00 83 04/16/20 23:30 79 18 97/56 (70) 97 04/16/20 23:18 79 18 90 04/16/20 23:00 79 18 91/55 (67) 99 04/16/20 22:30 85 18 90/55 (67) 99 04/16/20 22:15 85 18 98 04/16/20 22:00 85 18 95/56 (69) 98 04/16/20 21:45 88 18 96 04/16/20 21:45 88 18 96 04/16/20 21:43 90 18 109/62 (78) 97 04/16/20 21:30 80 18 81/49 (60) 97 04/16/20 21:30 80 18 81/49 (60) 97 04/16/20 21:29 81 18 82/50 (61) 97 04/16/20 21:15 86 18 90 04/16/20 21:11 18 91/58 Mechanical Ventilator 100 04/16/20 21:08 18 91/58 Mechanical Ventilator 100 04/16/20 21:00 86 18 82/51 (61) 96 04/16/20 20:32 100 18 95/52 (66) 98 04/16/20 20:30 100 18 88/55 (66) 98 04/16/20 20:11 18 11/64 Mechanical Ventilator 100 04/16/20 20:08 18 111/64 Mechanical Ventilator 100 04/16/20 20:00 109 04/16/20 20:00 108 20 118/66 (83) 99 04/16/20 20:00 Mechanical Ventilator 04/16/20 20:00 100 04/16/20 20:00 108 20 118/66 (83) 99 04/16/20 19:30 113 21 123/70 (87) 99 04/16/20 19:15 111 21 90 04/16/20 19:11 18 120/63 Mechanical Ventilator 100 04/16/20 19:08 18 120/63 Mechanical Ventilator 100 04/16/20 19:00 116 21 130/73 (92) 99 04/16/20 19:00 116 21 130/73 (92) 99 04/16/20 18:30 124 19 135/82 (99) 99 04/16/20 18:11 23 125/73 Endotracheal Tube 100 04/16/20 18:08 23 125/76 100 04/16/20 18:00 116 21 125/76 (92) 98 04/16/20 18:00 120 19 125/76 (92) 99 04/16/20 17:00 119 23 132/70 (90) 97 04/16/20 16:57 23 132/70 Endotracheal Tube 100 04/16/20 16:34 15 83/55 Endotracheal Tube 100 04/16/20 16:00 116 04/16/20 16:00 99.0 113 15 83/55 (64) 94 04/16/20 16:00 Mechanical Ventilator 04/16/20 16:00 100 04/16/20 15:57 19 94/63 Endotracheal Tube 100 04/16/20 15:34 19 94/63 Endotracheal Tube 100 04/16/20 15:28 124 18 90 04/16/20 15:00 143 23 227/103 (144) 89 04/16/20 14:57 23 227/103 Endotracheal Tube 100 04/16/20 14:34 30 184/92 Endotracheal Tube 100 04/16/20 14:00 128 30 184/92 (122) 94 04/16/20 13:57 30 184/92 Endotracheal Tube 100 04/16/20 13:34 18 93/49 Endotracheal Tube 100 04/16/20 13:00 76 18 93/49 (64) 93 04/16/20 12:57 18 93/49 Endotracheal Tube 100 04/16/20 12:34 18 84/45 Endotracheal Tube 100 04/16/20 12:00 100 04/16/20 12:00 Mechanical Ventilator 04/16/20 12:00 73 04/16/20 12:00 98.7 74 18 84/45 (58) 94 04/16/20 11:57 18 84/45 Endotracheal Tube 100 04/16/20 11:34 18 93/48 Endotracheal Tube 100 04/16/20 11:00 74 18 90 04/16/20 11:00 75 18 93/48 (63) 92 04/16/20 10:57 18 93/48 Endotracheal Tube 100 General Appearance: no apparent distress, on vent, patient on isolation, isolation precautions Extremities: no swelling Intake and Output 04/16/20 04/17/20 19:00 07:00 Intake Total 1600 ml 1230 ml Output Total 2700 ml 1700 ml Balance -1100 ml -470 ml Free Water 400 ml IV Total 600 ml 680 ml Tube Feeding 600 ml 550 ml Output Urine Total 2650 ml 1700 ml Stool Total 50 ml Laboratory Tests Test 04/16/20 17:35 04/17/20 05:18 Vancomycin Level Trough 23.1 ug/mL (5.0-12.0) H White Blood Count 6.0 K/UL (4.8-10.8) Red Blood Count 3.47 M/UL (4.70-6.10) L Hemoglobin 9.8 G/DL (14.2-18.0) L Hematocrit 30.9 % (42.0-52.0) L Mean Corpuscular Volume 89 FL (80-99) Mean Corpuscular Hemoglobin 28.4 PG (27.0-31.0) Mean Corpuscular Hemoglobin Concent 31.8 G/DL (32.0-36.0) L Red Cell Distribution Width 17.3 % (11.6-14.8) H Platelet Count 227 K/UL (150-450) Mean Platelet Volume 7.4 FL (6.5-10.1) Neutrophils (%) (Auto) 82.1 % (45.0-75.0) H Lymphocytes (%) (Auto) 12.9 % (20.0-45.0) L Monocytes (%) (Auto) 4.6 % (1.0-10.0) Eosinophils (%) (Auto) 0.0 % (0.0-3.0) Basophils (%) (Auto) 0.3 % (0.0-2.0) Sodium Level 142 MMOL/L (136-145) Potassium Level 3.5 MMOL/L (3.5-5.1) Chloride Level 100 MMOL/L (98-107) Carbon Dioxide Level 40 MMOL/L (21-32) H Anion Gap 1 mmol/L (5-15) L Blood Urea Nitrogen 21 mg/dL (7-18) H Creatinine 0.5 MG/DL (0.55-1.30) L Estimat Glomerular Filtration Rate > 60 mL/min (>60) Glucose Level 113 MG/DL (74-106) H Calcium Level 8.3 MG/DL (8.5-10.1) L Phosphorus Level 3.9 MG/DL (2.5-4.9) Magnesium Level 2.2 MG/DL (1.8-2.4) Total Bilirubin 0.7 MG/DL (0.2-1.0) Aspartate Amino Transf (AST/SGOT) 37 U/L (15-37) Alanine Aminotransferase (ALT/SGPT) 143 U/L (12-78) H Alkaline Phosphatase 352 U/L (46-116) H C-Reactive Protein, Quantitative 5.2 mg/dL (0.00-0.90) H Pro-B-Type Natriuretic Peptide 1221 pg/mL (0-125) H Total Protein 5.2 G/DL (6.4-8.2) L Albumin 1.9 G/DL (3.4-5.0) L Globulin 3.3 g/dL Albumin/Globulin Ratio 0.6 (1.0-2.7) L Microbiology Date/Time Source Procedure Growth Status 04/14/20 16:35 Stool Clostridium difficile Toxin Assay - Final Complete Objective pt in covid 19 isoaltion with acute infection Manan Awan MD Apr 17, 2020 10:52
--- NOTE | 2020-04-17 12:00 | Nephrology Progress Note ---
Assessment/Plan Problem List: (1) Dehydration (2) Electrolyte imbalance (3) COVID-19 virus infection (4) Pneumonia (5) DMII (diabetes mellitus, type 2) (6) Protein malnutrition Assessment Azotemia, hypernatremia Hypoalbuminemia Staff Otilia bacteremia COVID-19 isolation, pneumonia, bilateral infiltrate Hypertension Diabetes mellitus History of smoking Plan April 17: Status quo. Intubated on ventilator. Full code. Labs reviewed. Electrolytes and renal parameters stable. Continue per consultants. April 16: Girlfriend in the room. Patient awake. Intubated. Full code. Labs reviewed. Abnormal electrolyte addressed. Continue per consultants. April 15: Labs reviewed. Electrolytes and renal parameters stable. Patient full code. Continues to be intubated on ventilator. April 14: Status quo. Labs reviewed. Remains intubated on ventilator. Full code. Continue per consultants. April 13: Status quo. Labs reviewed. Renal parameters electrolytes stable. Continue per current treatment plan. April 12: On higher FiO2. Will resume Lasix daily. Continue to monitor electrolytes and renal parameters. Per consultants. April 11: FiO2 went up to 85%. Renal parameters and electrolytes reasonably well-maintained. Will monitor serum potassium. Will give IV Lasix. April 10: Status quo. Labs reviewed. Remains intubated on ventilator with FiO2 of 65%. Remains full code. Stable from renal standpoint to view. Repeat vitamin D level on April 08 pending April 09: Status quo. Labs reviewed. Stable from renal standpoint of view. Continue per consultants. April 08: Discussed with RN. Labs reviewed. Clinically improving. Requires lower PEEP. Continue per pulmonary. Continue to monitor renal parameters. April 07: Remains full code and on ventilator. Labs reviewed. Renal parameters and electrolytes stable. Continue per consultants. Blood pressure marginally improved. April 06: Full code. On ventilator. Blood pressure 80-90 systolic. IV Lasix discontinued. Free water through tube feeding ordered. Continue to monitor electrolytes and serum sodium. Down on fentanyl as possible. Discussed with PRIYANKA Brown. Clonidine patch discontinued. April 05: Status quo. Remains full code. Remains intubated. Labs reviewed. Renal parameters stable. Serum sodium 150 unchanged. Continue per consultants. April 04: Remains intubated and on ventilator. Remains full code. Labs reviewed. Serum sodium 150 unchanged. Renal parameters stable. Continue per ID and pulmonary. April 03: Intubated. On ventilator. Full code. Labs reviewed. Serum sodium 150 unchanged. Continue to monitor renal parameters. Continue per pulmonary and ID. April 02: Full code. On ventilator. Discussed with RN. Serum sodium slightly higher. Will cut down on IV Lasix. Continue per consultants. Continue to monitor renal parameters and electrolytes. April 01: Full code. Remains on ventilator. Labs reviewed. Stable from renal standpoint of view. Continue per consultants. March 31: Full code . Remains intubated on ventilator. Labs reviewed. Patient appears toxic. Discussed with RN. Maintenance IV discontinued. Medication list reviewed. Blood pressure medication stopped due to low blood pressure. Levemir insulin stopped. Continue monitor blood sugar and sliding scale insulin. March 30: Full code. On ventilator. Labs reviewed. Clonidine patch dose increased. Lasix increased. 3% saline 1 time ordered. Continue to monitor electrolytes and renal parameters. March 29: Remains full code. On mechanical ventilation. On tube feeding. Will DC TPN. Will start on maintenance IV fluid. Continue to monitor renal parameters. March 28: On BiPAP. Full code. On TPN. Labs reviewed. Discussed with pharmacy. Continue as is. Watch serum potassium. March 27: Remains on BiPAP. No chemistry panel done today. Full code. On TPN. Will check lab tomorrow. March 26: Remains on BiPAP. Remains on TPN. Labs reviewed. Electrolytes and chemistries within normal limits. Continue as is. March 25: Remains on TPN. Labs reviewed. Discussed with pharmacy. Change IV Protonix to p.o. Continue 3% saline infusion with Lasix. Patient full code. March 24: Continue to be on TPN. Labs are reviewed. Aim to collect electrolytes. Discussed with pharmacy. Continue current consultants. March 23: Continues to be on TPN. Labs reviewed. Electrolytes and chemistries all acceptable. Discussed with pharmacy. Continue current manag ement. March 22: On TPN. Labs reviewed. Low sodium noted. 3% saline to be continued. Continue to monitor electrolytes. Discussed with pharmacy. March 21: On TPN. Labs reviewed. Continue 3% saline and Lasix for mild hyponatremia. Continue TPN as these. Discussed with pharmacy. March 20: Remains on TPN. Labs reviewed. Serum sodium higher on IV Lasix and 3% saline infusion. Continue TPN as is. Continue to monitor renal parameters and electrolytes. Discussed with Dr. Mata March 19: Remains on TPN. Labs reviewed. Serum sodium 128. Will give 3% saline with IV Lasix. Continue to monitor electrolytes. No change in TPN composition. Discussed with pharmacy. March 18: Remains on TPN. Labs reviewed. Discussed with pharmacist. Will give 3 doses of IV Lasix 20 mg every 8 hours. Continue to monitor serum sodium electrolytes uric acid. White blood cells down. Continue per consultants. March 17: On TPN. Labs reviewed. Discussed with pharmacist. Sodium content increase. Continue to monitor CMP. Patient continues to have leukocytosis. March 16: On TPN. Labs reviewed. Discussed with pharmacist. Appropriate changes made. Continue to monitor electrolytes. March 15: Remains on TPN. Labs reviewed. Discussed with pharmacist. Ki vieira per current management. March 14: Remains on TPN. Labs reviewed, stable. Vitamin D level low, replacement ordered. Continue to monitor electrolytes and renal parameters. March 13: Patient remains on TPN. Discussed with pharmacist. TPN's sodium content adjusted. Labs reviewed. Continue to monitor electrolytes. Blood pressure remains stable. Continue per consultants. March 12: Patient on TPN. Labs reviewed. CPK remains elevated. Abnormal electrolytes and high blood sugar discussed with pharmacist and TPN adjusted. Continue to monitor labs. Oral Protonix added. Ibuprofen discontinued. Can continue to monitor electrolytes and chemistries. Levemir for high blood sugar added. March 11: Patient on TPN. Labs as of 11:15 AM is still pending. Continue per current treatment plan. Will check labs and adjust TPN as needed. Continue per consultants. March 10: Patient on TPN. Labs reviewed. Electrolytes overall stable. CPK is elevated. Will monitor electrolyte, CPK level, lipid panel. Continue per consultants. Discussed with pharmacist. Discussed with RN. Nutritional evaluation noted. Previously: D5W 100 cc an hour Monitor electrolytes renal parameters TPN and Intralipid ordered Will follow Continue per consultants Dietary consult requested Subjective ROS Limited/Unobtainable: Yes Objective Objective Last 24 Hour Vital Signs Date Time Temp Pulse Resp B/P (MAP) Pulse Ox O2 Delivery O2 Flow Rate FiO2 04/17/20 11:30 24 94/47 Mechanical Ventilator 90 04/17/20 10:00 89 19 135/80 (98) 92 04/17/20 09:24 25 101/83 Mechanical Ventilator 90 04/17/20 09:00 71 18 107/58 (74) 93 04/17/20 08:03 68 04/17/20 08:00 90 04/17/20 08:00 Mechanical Ventilator 04/17/20 08:00 98.3 69 18 110/58 (75) 94 04/17/20 07:00 71 18 96/52 (67) 93 04/17/20 06:45 73 18 92 04/17/20 06:30 74 18 97/51 (66) 92 04/17/20 06:15 76 18 93 04/17/20 06:00 77 18 106/53 (70) 94 04/17/20 06:00 77 18 106/53 (70) 94 04/17/20 05:30 71 18 99/51 (67) 94 04/17/20 05:28 70 18 90 04/17/20 05:15 70 18 93 04/17/20 05:00 72 18 100/59 (73) 94 04/17/20 04:45 74 18 94 04/17/20 04:30 72 18 102/56 (71) 95 04/17/20 04:00 90 04/17/20 04:00 78 04/17/20 04:00 99.4 75 18 109/62 (78) 95 04/17/20 04:00 Mechanical Ventilator 04/17/20 03:30 74 18 104/61 (75) 95 04/17/20 03:23 74 18 90 04/17/20 03:06 18 111/63 Mechanical Ventilator 100 04/17/20 03:00 74 18 109/61 (77) 95 04/17/20 02:30 83 18 112/61 (78) 95 04/17/20 02:00 90 18 124/68 (86) 94 04/17/20 01:32 22 133/72 Mechanical Ventilator 90 04/17/20 01:30 93 17 140/74 (96) 93 04/17/20 01:21 94 18 90 04/17/20 01:00 92 18 133/76 (95) 95 04/17/20 00:30 85 18 117/61 (79) 96 04/17/20 00:00 Mechanical Ventilator 04/17/20 00:00 80 18 93/53 (66) 95 04/17/20 00:00 90 2/15/21 00:00 99.6 80 18 93/53 (66) 95 04/17/20 00:00 83 04/16/20 23:30 79 18 97/56 (70) 97 04/16/20 23:18 79 18 90 04/16/20 23:00 79 18 91/55 (67) 99 04/16/20 22:30 85 18 90/55 (67) 99 04/16/20 22:15 85 18 98 04/16/20 22:00 85 18 95/56 (69) 98 04/16/20 21:45 88 18 96 04/16/20 21:45 88 18 96 04/16/20 21:43 90 18 109/62 (78) 97 04/16/20 21:30 80 18 81/49 (60) 97 04/16/20 21:30 80 18 81/49 (60) 97 04/16/20 21:29 81 18 82/50 (61) 97 04/16/20 21:15 86 18 90 04/16/20 21:11 18 91/58 Mechanical Ventilator 100 04/16/20 21:08 18 91/58 Mechanical Ventilator 100 04/16/20 21:00 86 18 82/51 (61) 96 04/16/20 20:32 100 18 95/52 (66) 98 04/16/20 20:30 100 18 88/55 (66) 98 04/16/20 20:11 18 11/64 Mechanical Ventilator 100 04/16/20 20:08 18 111/64 Mechanical Ventilator 100 04/16/20 20:00 109 04/16/20 20:00 108 20 118/66 (83) 99 04/16/20 20:00 Mechanical Ventilator 04/16/20 20:00 100 04/16/20 20:00 108 20 118/66 (83) 99 04/16/20 19:30 113 21 123/70 (87) 99 04/16/20 19:15 111 21 90 04/16/20 19:11 18 120/63 Mechanical Ventilator 100 04/16/20 19:08 18 120/63 Mechanical Ventilator 100 04/16/20 19:00 116 21 130/73 (92) 99 04/16/20 19:00 116 21 130/73 (92) 99 04/16/20 18:30 124 19 135/82 (99) 99 04/16/20 18:11 23 125/73 Endotracheal Tube 100 04/16/20 18:08 23 125/76 100 04/16/20 18:00 116 21 125/76 (92) 98 04/16/20 18:00 120 19 125/76 (92) 99 04/16/20 17:00 119 23 132/70 (90) 97 04/16/20 16:57 23 132/70 Endotracheal Tube 100 04/16/20 16:34 15 83/55 Endotracheal Tube 100 04/16/20 16:00 116 04/16/20 16:00 99.0 113 15 83/55 (64) 94 04/16/20 16:00 Mechanical Ventilator 04/16/20 16:00 100 04/16/20 15:57 19 94/63 Endotracheal Tube 100 04/16/20 15:34 19 94/63 Endotracheal Tube 100 04/16/20 15:28 124 18 90 04/16/20 15:00 143 23 227/103 (144) 89 04/16/20 14:57 23 227/103 Endotracheal Tube 100 04/16/20 14:34 30 184/92 Endotracheal Tube 100 04/16/20 14:00 128 30 184/92 (122) 94 04/16/20 13:57 30 184/92 Endotracheal Tube 100 04/16/20 13:34 18 93/49 Endotracheal Tube 100 04/16/20 13:00 76 18 93/49 (64) 93 04/16/20 12:57 18 93/49 Endotracheal Tube 100 04/16/20 12:34 18 84/45 Endotracheal Tube 100 04/16/20 12:00 100 04/16/20 12:00 Mechanical Ventilator 04/16/20 12:00 73 04/16/20 12:00 98.7 74 18 84/45 (58) 94 Intake and Output 04/16/20 04/17/20 19:00 07:00 Intake Total 1600 ml 1244 ml Output Total 2700 ml 1700 ml Balance -1100 ml -456 ml Free Water 400 ml IV Total 600 ml 694 ml Tube Feeding 600 ml 550 ml Output Urine Total 2650 ml 1700 ml Stool Total 50 ml Current Medications Medications (Trade) Dose Ordered Sig/Dennis Route PRN Reason Start Time Stop Time Status Last Admin Dose Admin Acetaminophen (Tylenol) 650 mg Q4H PRN ORAL Temp >100.5 04/13/20 00:30 05/13/20 00:29 04/13/20 01:30 Bisacodyl (Dulcolax) 10 mg Q12H PRN RECTAL Constipation 03/18/20 16:45 06/16/20 16:44 Chlorhexidine Gluconate (Marlen-Hex 2%) 1 applic DAILY@2000 TOPIC 03/30/20 20:00 06/28/20 19:59 04/16/20 20:13 Dextrose (Dextrose 50%) 25 ml Q30M PRN IV Hypoglycemia 03/29/20 20:45 06/27/20 20:44 Dextrose (Dextrose 50%) 50 ml Q30M PRN IV Hypoglycemia 03/29/20 20:45 06/27/20 20:44 Enoxaparin Sodium (Lovenox) 80 mg EVERY 12 HOURS SUBQ 04/06/20 21:00 07/05/20 20:59 04/17/20 09:47 Fentanyl Citrate 250 ml @ 1 mls/hr Q24H IV 04/16/20 00:45 04/18/20 00:44 04/17/20 11:30 Hydralazine HCl (Apresoline) 10 mg Q4H PRN IV For High Blood Pressure 03/30/20 12:15 06/28/20 12:14 04/14/20 22:45 Insulin Aspart (NovoLOG) Q6HR SUBQ 03/30/20 00:00 06/28/20 00:00 04/17/20 11:48 Labetalol HCl (Normodyne) 10 mg Q4H PRN IV sbp greater tahtn 160 03/28/20 17:30 04/27/20 17:29 Methylprednisolone Sodium Succinate (Solu-MEDROL) 20 mg Q12HR IVP 04/12/20 21:00 06/20/20 20:59 04/17/20 09:47 Metoclopramide HCl (Reglan) 10 mg Q6H IVP 03/30/20 15:00 04/29/20 14:59 04/17/20 09:47 Micafungin Sodium 100 mg/Sodium Chloride 100 ml @ 100 mls/hr Q24H IVPB 04/09/20 15:00 04/22/20 23:59 04/16/20 15:48 Midazolam HCl 200 ml @ 0 mls/hr Q24H PRN IV Agitation 04/16/20 00:45 04/18/20 00:44 04/17/20 09:24 Pantoprazole (Protonix) 40 mg EVERY 12 HOURS IVP 04/01/20 21:00 05/01/20 20:59 04/17/20 09:47 Piperacillin Sod/ Tazobactam Sod 3.375 gm/Dextrose 110 ml @ 27.5 mls/hr EVERY 8 HOURS IVPB 04/14/20 14:00 04/19/20 13:59 04/17/20 05:56 Trimethoprim/ Sulfamethoxazole (Bactrim-DS) 1 tab Q24H ORAL 03/29/20 17:00 05/10/20 16:59 04/16/20 17:29 Vancomycin HCl (Vanco pharmacy to dose) 1 ea DAILY PRN MISC Per rx protocol 04/11/20 17:30 05/11/20 17:29 Vancomycin HCl 750 mg/Sodium Chloride 275 ml @ 183.333 mls/hr Q8HR IVPB 04/17/20 06:00 04/22/20 05:59 04/17/20 05:31 Laboratory Tests 04/16/20 17:35: Vancomycin Level Trough 23.1H 04/17/20 05:18: White Blood Count 6.0, Red Blood Count 3.47L, Hemoglobin 9.8L, Hematocrit 30.9L, Mean Corpuscular Volume 89, Mean Corpuscular Hemoglobin 28.4, Mean Corpuscular Hemoglobin Concent 31.8L, Red Cell Distribution Width 17.3H, Platelet Count 227, Mean Platelet Volume 7.4, Neutrophils (%) (Auto) 82.1H, Lymphocytes (%) (Auto) 12.9L, Monocytes (%) (Auto) 4.6, Eosinophils (%) (Auto) 0.0, Basophils (%) (Auto) 0.3, Sodium Level 142, Potassium Level 3.5, Chloride Level 100, Carbon Dioxide Level 40H, Anion Gap 1L, Blood Urea Nitrogen 21H, Creatinine 0.5L, Estimat Glomerular Filtration Rate > 60, Glucose Level 113H, Calcium Level 8.3L, Phosphorus Level 3.9, Magnesium Level 2.2, Total Bilirubin 0.7, Aspartate Amino Transf (AST/SGOT) 37, Alanine Aminotransferase (ALT/SGPT) 143H, Alkaline Phosphatase 352H, C-Reactive Protein, Quantitative 5.2H, Pro-B-Type Natriuretic Peptide 1221H, Total Protein 5.2L, Albumin 1.9L, Globulin 3.3, Albumin/Globulin Ratio 0.6L Height (Feet): 5 Height (Inches): 10.00 Weight (Pounds): 240 General Appearance: no apparent distress EENT: other - Intubated on ventilator Cardiovascular: normal rate Respiratory/Chest: decreased breath sounds Abdomen: distended Rubin Cooper MD Apr 17, 2020 12:00
--- NOTE | 2020-04-17 12:00 | NUR ---
NURSE NOTES: Pt's BG checked, 143, insulin given per sliding scale order. Pt's VSS, afebrile, no signs of distress noted. Will continue to monitor.
--- NOTE | 2020-04-17 13:10 | Surgery Progress Note ---
Surgery Progress Note Subjective Additional Comments pt seen and examined fi02 90% weaning not ready for trach Objective Last 24 Hour Vital Signs Date Time Temp Pulse Resp B/P (MAP) Pulse Ox O2 Delivery O2 Flow Rate FiO2 04/17/20 12:14 74 04/17/20 12:00 Mechanical Ventilator 04/17/20 12:00 90 04/17/20 12:00 98.5 75 18 105/52 (69) 93 04/17/20 11:30 24 94/47 Mechanical Ventilator 90 04/17/20 11:00 74 18 95/50 (65) 90 04/17/20 10:00 89 19 135/80 (98) 92 04/17/20 09:24 25 101/83 Mechanical Ventilator 90 04/17/20 09:00 70 18 90 04/17/20 09:00 71 18 107/58 (74) 93 04/17/20 08:03 68 04/17/20 08:00 90 04/17/20 08:00 Mechanical Ventilator 04/17/20 08:00 98.3 69 18 110/58 (75) 94 04/17/20 07:02 70 18 93 Mechanical Ventilator 90 04/17/20 07:00 71 18 96/52 (67) 93 04/17/20 06:45 73 18 92 04/17/20 06:30 74 18 97/51 (66) 92 04/17/20 06:15 76 18 93 04/17/20 06:00 77 18 106/53 (70) 94 04/17/20 06:00 77 18 106/53 (70) 94 04/17/20 05:30 71 18 99/51 (67) 94 04/17/20 05:28 70 18 90 04/17/20 05:15 70 18 93 04/17/20 05:00 72 18 100/59 (73) 94 04/17/20 04:45 74 18 94 04/17/20 04:30 72 18 102/56 (71) 95 04/17/20 04:00 90 04/17/20 04:00 78 04/17/20 04:00 99.4 75 18 109/62 (78) 95 04/17/20 04:00 Mechanical Ventilator 04/17/20 03:30 74 18 104/61 (75) 95 04/17/20 03:23 74 18 90 04/17/20 03:06 18 111/63 Mechanical Ventilator 100 04/17/20 03:00 74 18 109/61 (77) 95 04/17/20 02:30 83 18 112/61 (78) 95 04/17/20 02:00 90 18 124/68 (86) 94 04/17/20 01:32 22 133/72 Mechanical Ventilator 90 04/17/20 01:30 93 17 140/74 (96) 93 04/17/20 01:21 94 18 90 04/17/20 01:00 92 18 133/76 (95) 95 04/17/20 00:30 85 18 117/61 (79) 96 04/17/20 00:00 Mechanical Ventilator 04/17/20 00:00 80 18 93/53 (66) 95 04/17/20 00:00 90 04/17/20 00:00 99.6 80 18 93/53 (66) 95 04/17/20 00:00 83 04/16/20 23:30 79 18 97/56 (70) 97 04/16/20 23:18 79 18 90 04/16/20 23:00 79 18 91/55 (67) 99 04/16/20 22:30 85 18 90/55 (67) 99 04/16/20 22:15 85 18 98 04/16/20 22:00 85 18 95/56 (69) 98 04/16/20 21:45 88 18 96 04/16/20 21:45 88 18 96 04/16/20 21:43 90 18 109/62 (78) 97 04/16/20 21:30 80 18 81/49 (60) 97 04/16/20 21:30 80 18 81/49 (60) 97 04/16/20 21:29 81 18 82/50 (61) 97 04/16/20 21:15 86 18 90 04/16/20 21:11 18 91/58 Mechanical Ventilator 100 04/16/20 21:08 18 91/58 Mechanical Ventilator 100 04/16/20 21:00 86 18 82/51 (61) 96 04/16/20 20:32 100 18 95/52 (66) 98 04/16/20 20:30 100 18 88/55 (66) 98 04/16/20 20:11 18 11/64 Mechanical Ventilator 100 04/16/20 20:08 18 111/64 Mechanical Ventilator 100 04/16/20 20:00 109 04/16/20 20:00 108 20 118/66 (83) 99 04/16/20 20:00 Mechanical Ventilator 04/16/20 20:00 100 04/16/20 20:00 108 20 118/66 (83) 99 04/16/20 19:30 113 21 123/70 (87) 99 04/16/20 19:15 111 21 90 04/16/20 19:11 18 120/63 Mechanical Ventilator 100 04/16/20 19:08 18 120/63 Mechanical Ventilator 100 04/16/20 19:00 116 21 130/73 (92) 99 04/16/20 19:00 116 21 130/73 (92) 99 04/16/20 18:30 124 19 135/82 (99) 99 04/16/20 18:11 23 125/73 Endotracheal Tube 100 04/16/20 18:08 23 125/76 100 04/16/20 18:00 116 21 125/76 (92) 98 04/16/20 18:00 120 19 125/76 (92) 99 04/16/20 17:00 119 23 132/70 (90) 97 04/16/20 16:57 23 132/70 Endotracheal Tube 100 04/16/20 16:34 15 83/55 Endotracheal Tube 100 04/16/20 16:00 116 04/16/20 16:00 99.0 113 15 83/55 (64) 94 04/16/20 16:00 Mechanical Ventilator 04/16/20 16:00 100 04/16/20 15:57 19 94/63 Endotracheal Tube 100 04/16/20 15:34 19 94/63 Endotracheal Tube 100 04/16/20 15:28 124 18 90 04/16/20 15:00 143 23 227/103 (144) 89 04/16/20 14:57 23 227/103 Endotracheal Tube 100 04/16/20 14:34 30 184/92 Endotracheal Tube 100 04/16/20 14:00 128 30 184/92 (122) 94 04/16/20 13:57 30 184/92 Endotracheal Tube 100 04/16/20 13:34 18 93/49 Endotracheal Tube 100 I&O Intake and Output 04/16/20 04/17/20 19:00 07:00 Intake Total 1600 ml 1244 ml Output Total 2700 ml 1700 ml Balance -1100 ml -456 ml Free Water 400 ml IV Total 600 ml 694 ml Tube Feeding 600 ml 550 ml Output Urine Total 2650 ml 1700 ml Stool Total 50 ml Dressing: other Wound: other Cardiovascular: RSR Respiratory: decreased breath sounds Abdomen: soft, non-tender, present bowel sounds, non-distended Extremities: no tenderness, no cyanosis Laboratory Tests Test 04/16/20 17:35 04/17/20 05:18 Vancomycin Level Trough 23.1 ug/mL (5.0-12.0) H White Blood Count 6.0 K/UL (4.8-10.8) Red Blood Count 3.47 M/UL (4.70-6.10) L Hemoglobin 9.8 G/DL (14.2-18.0) L Hematocrit 30.9 % (42.0-52.0) L Mean Corpuscular Volume 89 FL (80-99) Mean Corpuscular Hemoglobin 28.4 PG (27.0-31.0) Mean Corpuscular Hemoglobin Concent 31.8 G/DL (32.0-36.0) L Red Cell Distribution Width 17.3 % (11.6-14.8) H Platelet Count 227 K/UL (150-450) Mean Platelet Volume 7.4 FL (6.5-10.1) Neutrophils (%) (Auto) 82.1 % (45.0-75.0) H Lymphocytes (%) (Auto) 12.9 % (20.0-45.0) L Monocytes (%) (Auto) 4.6 % (1.0-10.0) Eosinophils (%) (Auto) 0.0 % (0.0-3.0) Basophils (%) (Auto) 0.3 % (0.0-2.0) Sodium Level 142 MMOL/L (136-145) Potassium Level 3.5 MMOL/L (3.5-5.1) Chloride Level 100 MMOL/L (98-107) Carbon Dioxide Level 40 MMOL/L (21-32) H Anion Gap 1 mmol/L (5-15) L Blood Urea Nitrogen 21 mg/dL (7-18) H Creatinine 0.5 MG/DL (0.55-1.30) L Estimat Glomerular Filtration Rate > 60 mL/min (>60) Glucose Level 113 MG/DL (74-106) H Calcium Level 8.3 MG/DL (8.5-10.1) L Phosphorus Level 3.9 MG/DL (2.5-4.9) Magnesium Level 2.2 MG/DL (1.8-2.4) Total Bilirubin 0.7 MG/DL (0.2-1.0) Aspartate Amino Transf (AST/SGOT) 37 U/L (15-37) Alanine Aminotransferase (ALT/SGPT) 143 U/L (12-78) H Alkaline Phosphatase 352 U/L (46-116) H C-Reactive Protein, Quantitative 5.2 mg/dL (0.00-0.90) H Pro-B-Type Natriuretic Peptide 1221 pg/mL (0-125) H Total Protein 5.2 G/DL (6.4-8.2) L Albumin 1.9 G/DL (3.4-5.0) L Globulin 3.3 g/dL Albumin/Globulin Ratio 0.6 (1.0-2.7) L Plan Problems: (1) Pneumonia (2) Staphylococcus aureus bacteremia (3) COVID-19 virus infection (4) Chest pain (5) Hypertension (6) Dehydration (7) Electrolyte imbalance (8) DMII (diabetes mellitus, type 2) (9) Protein malnutrition (10) Respiratory insufficiency Assessment & Plan: 64-year-old male with respiratory insufficiency intubated in an intensive care unit. Patient has been unable to safely wean off ventilatory support. Surgery called to evaluate for tracheostomy. After careful evaluation patient is a candidate for tracheostomy. In the meantime will obtain consent. If consent obtained will proceed with scheduling. Thank you for your participation's care will follow recommendations Booker Rausch Apr 17, 2020 13:10
--- NOTE | 2020-04-17 13:45 | NUR ---
NURSE NOTES: Scheduled vancomycin given per MD order, pt tolerated well. Pt's VS remain stable, will continue to monitor.
--- NOTE | 2020-04-17 14:20 | NUR ---
CASE MANAGEMENT:REVIEW 04/17/20 SI: COVID PNEUMONIA~INTUBATED 98.5 69 18 98/54 93% ON VENT SUPPORT W/90% FIO2 PEEP~5.0 CO2+40 CA-8.3 AST/ALT+143/352 ALB-1.9 IS: IV LASIX QD FENTANYL GTT VERSED GTT IV MICAFUNGIN Q24 IV VANCOMYCIN Q8HRS NORVASC NG Q12 IVF@30/HR LOVENOX SQ Q12 IV PROTONIX Q12 IV SOLUMEDROL 20MG Q12HRS BACTRIM NG Q24 IV REGLAN Q6HRS : ICU STATUS PLAN: NON VIOLENT RESTRAINTS WEAN TOLERATED
--- NOTE | 2020-04-17 15:40 | General Progress Note ---
Subjective ROS Limited/Unobtainable: No Allergies: Coded Allergies: No Known Allergies (Unverified , 02/05/20) Objective Last 24 Hour Vital Signs Date Time Temp Pulse Resp B/P (MAP) Pulse Ox O2 Delivery O2 Flow Rate FiO2 04/17/20 15:20 100 04/17/20 15:00 97 20 129/63 (85) 89 04/17/20 14:00 69 18 98/54 (69) 97 04/17/20 13:07 70 18 90 04/17/20 13:00 71 18 101/53 (69) 96 04/17/20 12:14 74 04/17/20 12:00 Mechanical Ventilator 04/17/20 12:00 90 04/17/20 12:00 98.5 75 18 105/52 (69) 93 04/17/20 11:30 24 94/47 Mechanical Ventilator 90 04/17/20 11:00 74 18 95/50 (65) 90 04/17/20 10:00 89 19 135/80 (98) 92 04/17/20 09:24 25 101/83 Mechanical Ventilator 90 04/17/20 09:00 70 18 90 04/17/20 09:00 71 18 107/58 (74) 93 04/17/20 08:03 68 04/17/20 08:00 90 04/17/20 08:00 Mechanical Ventilator 04/17/20 08:00 98.3 69 18 110/58 (75) 94 04/17/20 07:02 70 18 93 Mechanical Ventilator 90 04/17/20 07:00 71 18 96/52 (67) 93 04/17/20 06:45 73 18 92 04/17/20 06:30 74 18 97/51 (66) 92 04/17/20 06:15 76 18 93 04/17/20 06:00 77 18 106/53 (70) 94 04/17/20 06:00 77 18 106/53 (70) 94 04/17/20 05:30 71 18 99/51 (67) 94 04/17/20 05:28 70 18 90 04/17/20 05:15 70 18 93 04/17/20 05:00 72 18 100/59 (73) 94 04/17/20 04:45 74 18 94 04/17/20 04:30 72 18 102/56 (71) 95 04/17/20 04:00 90 04/17/20 04:00 78 04/17/20 04:00 99.4 75 18 109/62 (78) 95 04/17/20 04:00 Mechanical Ventilator 04/17/20 03:30 74 18 104/61 (75) 95 04/17/20 03:23 74 18 90 04/17/20 03:06 18 111/63 Mechanical Ventilator 100 04/17/20 03:00 74 18 109/61 (77) 95 04/17/20 02:30 83 18 112/61 (78) 95 04/17/20 02:00 90 18 124/68 (86) 94 04/17/20 01:32 22 133/72 Mechanical Ventilator 90 04/17/20 01:30 93 17 140/74 (96) 93 04/17/20 01:21 94 18 90 04/17/20 01:00 92 18 133/76 (95) 95 04/17/20 00:30 85 18 117/61 (79) 96 04/17/20 00:00 Mechanical Ventilator 04/17/20 00:00 80 18 93/53 (66) 95 04/17/20 00:00 90 04/17/20 00:00 99.6 80 18 93/53 (66) 95 04/17/20 00:00 83 04/16/20 23:30 79 18 97/56 (70) 97 04/16/20 23:18 79 18 90 04/16/20 23:00 79 18 91/55 (67) 99 04/16/20 22:30 85 18 90/55 (67) 99 04/16/20 22:15 85 18 98 04/16/20 22:00 85 18 95/56 (69) 98 04/16/20 21:45 88 18 96 04/16/20 21:45 88 18 96 04/16/20 21:43 90 18 109/62 (78) 97 04/16/20 21:30 80 18 81/49 (60) 97 04/16/20 21:30 80 18 81/49 (60) 97 04/16/20 21:29 81 18 82/50 (61) 97 04/16/20 21:15 86 18 90 04/16/20 21:11 18 91/58 Mechanical Ventilator 100 04/16/20 21:08 18 91/58 Mechanical Ventilator 100 04/16/20 21:00 86 18 82/51 (61) 96 04/16/20 20:32 100 18 95/52 (66) 98 04/16/20 20:30 100 18 88/55 (66) 98 04/16/20 20:11 18 11/64 Mechanical Ventilator 100 04/16/20 20:08 18 111/64 Mechanical Ventilator 100 04/16/20 20:00 109 04/16/20 20:00 108 20 118/66 (83) 99 04/16/20 20:00 Mechanical Ventilator 04/16/20 20:00 100 04/16/20 20:00 108 20 118/66 (83) 99 04/16/20 19:30 113 21 123/70 (87) 99 04/16/20 19:15 111 21 90 04/16/20 19:11 18 120/63 Mechanical Ventilator 100 04/16/20 19:08 18 120/63 Mechanical Ventilator 100 04/16/20 19:00 116 21 130/73 (92) 99 04/16/20 19:00 116 21 130/73 (92) 99 04/16/20 18:30 124 19 135/82 (99) 99 04/16/20 18:11 23 125/73 Endotracheal Tube 100 04/16/20 18:08 23 125/76 100 04/16/20 18:00 116 21 125/76 (92) 98 04/16/20 18:00 120 19 125/76 (92) 99 04/16/20 17:00 119 23 132/70 (90) 97 04/16/20 16:57 23 132/70 Endotracheal Tube 100 04/16/20 16:34 15 83/55 Endotracheal Tube 100 04/16/20 16:00 116 04/16/20 16:00 99.0 113 15 83/55 (64) 94 04/16/20 16:00 Mechanical Ventilator 04/16/20 16:00 100 04/16/20 15:57 19 94/63 Endotracheal Tube 100 Intake and Output 04/16/20 04/17/20 19:00 07:00 Intake Total 1600 ml 1244 ml Output Total 2700 ml 1700 ml Balance -1100 ml -456 ml Free Water 400 ml IV Total 600 ml 694 ml Tube Feeding 600 ml 550 ml Output Urine Total 2650 ml 1700 ml Stool Total 50 ml Laboratory Tests 04/16/20 17:35: Vancomycin Level Trough 23.1H 04/17/20 05:18: White Blood Count 6.0, Red Blood Count 3.47L, Hemoglobin 9.8L, Hematocrit 30.9L, Mean Corpuscular Volume 89, Mean Corpuscular Hemoglobin 28.4, Mean Corpuscular Hemoglobin Concent 31.8L, Red Cell Distribution Width 17.3H, Platelet Count 227, Mean Platelet Volume 7.4, Neutrophils (%) (Auto) 82.1H, Lymphocytes (%) (Auto) 12.9L, Monocytes (%) (Auto) 4.6, Eosinophils (%) (Auto) 0.0, Basophils (%) (Auto) 0.3, Sodium Level 142, Potassium Level 3.5, Chloride Level 100, Carbon Dioxide Level 40H, Anion Gap 1L, Blood Urea Nitrogen 21H, Creatinine 0.5L, Estimat Glomerular Filtration Rate > 60, Glucose Level 113H, Calcium Level 8.3L, Phosphorus Level 3.9, Magnesium Level 2.2, Total Bilirubin 0.7, Aspartate Amino Transf (AST/SGOT) 37, Alanine Aminotransferase (ALT/SGPT) 143H, Alkaline Phosphatase 352H, C-Reactive Protein, Quantitative 5.2H, Pro-B-Type Natriuretic Peptide 1221H, Total Protein 5.2L, Albumin 1.9L, Globulin 3.3, Albumin/Globulin Ratio 0.6L Height (Feet): 5 Height (Inches): 10.00 Weight (Pounds): 240 General Appearance: no apparent distress EENT: normal ENT inspection Neck: supple Cardiovascular: normal rate Respiratory/Chest: decreased breath sounds Abdomen: hypoactive bowel sounds Extremities: non-tender Assessment/Plan Status: not improved, unchanged Assessment/Plan: hep c + but neg RNA OGTF reglan 10 mg repeat labs fu LFTS>>>improving will Da Wilson MD Apr 17, 2020 15:40
--- NOTE | 2020-04-17 15:50 | NUR ---
NURSE NOTES: Scheduled medications given per MD order, pt tolerated well. Pt's VS remain stable, no signs of distress noted. Will continue to monitor.
[2020-04-17] MEDS: Bactrim-DS 1 tab ORAL SCH (16:01)
--- NOTE | 2020-04-17 16:15 | NUR ---
NURSE NOTES: Tube feeding residual checked, 60 mL noted, Tube feeding held at this time. Scheduled medications given per MD order, pt tolerated well. Will continue to monitor.
--- NOTE | 2020-04-17 16:36 | Infectious Diseases Prog Note ---
Assessment/Plan Assessment/Plan ASSESSMENT AND PLAN: 1. staph aureus bacteremia/mssa, ? source, ? endocarditis, sepsis, leukocytosis, ? CAP, PJP less likely with HIV negative and steroids < 1 month covid-19 +, hypoxia, sob, chest x-ray worse, ? PE, ? HCAP/aspiration pna recurrent fevers - ? fungal, ? OI leukocytosis noted - ? new infection, ? steroids cocci serology negative, legionella negative, beta 1,3 D-glucan wnl, Il-16 - 13.7 elevated LFT's - ? TPN, ? Bactrim - US without gallbladder disease, + steatosis - d/w GI - TPN more likely than bactrim as etiology e.coli uti - s/p treatment with rocephin, s/p treatment for presumptive pneumocystis pna + yeast in blood, fungemia, ? line infection, line changed worsening respiratory status, ? new aspiration pna/hcap, ? sepsis ? fungal/cynthia uti vs colonization - zosyn - day # 7, surveillance cultures negative to date, discontinue vancomycin - micafungin - day # 14/14 (post negative blood cultures - 04/02/20) - discontinue - on solumedrol - picc line changed - bactrim for pneumocystis prophylaxis, s/p pneumocystis treatment - s/p tx for mssa bacteremia and ? endocarditis - monitor hypoxia, labs and chest x-ray - guarded condition - plan on trach - c.diff. negative 2. covid-19 isolation 3. Hypertension history. Blood pressure treatment primary care team. 4. Elevated blood sugars. Blood sugar treatment per primary care team. 5. No known drug allergies. 6. Social history is positive for smoking. 7. Family history is noncontributory. 8. MAR was noted. 9. Case was discussed with RN. 10. Continue treatment per primary consultants. Subjective Constitutional: Reports: other; Denies: fever HEENT: Reports: congestion Respiratory: Reports: shortness of breath Gastrointestinal/Abdominal: Reports: diarrhea - + rectal tube ; Denies: nausea, vomiting Genitourinary: Reports: other - + joseph Neurologic: Reports: other - on vent Psychiatric: Reports: other - NA Skin: Denies: rash Hematologic: Denies: bleeding Musculoskeletal: Reports: other - Na Allergies: Coded Allergies: No Known Allergies (Unverified , 02/05/20) Objective Last 24 Hour Vital Signs Date Time Temp Pulse Resp B/P (MAP) Pulse Ox O2 Delivery O2 Flow Rate FiO2 04/17/20 16:05 21 112/58 Mechanical Ventilator 100 04/17/20 15:20 100 04/17/20 15:00 97 20 129/63 (85) 89 04/17/20 14:00 69 18 98/54 (69) 97 04/17/20 13:07 70 18 90 04/17/20 13:00 71 18 101/53 (69) 96 04/17/20 12:14 74 04/17/20 12:00 Mechanical Ventilator 04/17/20 12:00 90 04/17/20 12:00 98.5 75 18 105/52 (69) 93 04/17/20 11:30 24 94/47 Mechanical Ventilator 90 04/17/20 11:00 74 18 95/50 (65) 90 04/17/20 10:00 89 19 135/80 (98) 92 04/17/20 09:24 25 101/83 Mechanical Ventilator 90 04/17/20 09:00 70 18 90 04/17/20 09:00 71 18 107/58 (74) 93 04/17/20 08:03 68 04/17/20 08:00 90 04/17/20 08:00 Mechanical Ventilator 04/17/20 08:00 98.3 69 18 110/58 (75) 94 04/17/20 07:02 70 18 93 Mechanical Ventilator 90 04/17/20 07:00 71 18 96/52 (67) 93 04/17/20 06:45 73 18 92 04/17/20 06:30 74 18 97/51 (66) 92 04/17/20 06:15 76 18 93 04/17/20 06:00 77 18 106/53 (70) 94 04/17/20 06:00 77 18 106/53 (70) 94 04/17/20 05:30 71 18 99/51 (67) 94 04/17/20 05:28 70 18 90 04/17/20 05:15 70 18 93 04/17/20 05:00 72 18 100/59 (73) 94 04/17/20 04:45 74 18 94 04/17/20 04:30 72 18 102/56 (71) 95 04/17/20 04:00 90 04/17/20 04:00 78 04/17/20 04:00 99.4 75 18 109/62 (78) 95 04/17/20 04:00 Mechanical Ventilator 04/17/20 03:30 74 18 104/61 (75) 95 04/17/20 03:23 74 18 90 04/17/20 03:06 18 111/63 Mechanical Ventilator 100 04/17/20 03:00 74 18 109/61 (77) 95 04/17/20 02:30 83 18 112/61 (78) 95 04/17/20 02:00 90 18 124/68 (86) 94 04/17/20 01:32 22 133/72 Mechanical Ventilator 90 04/17/20 01:30 93 17 140/74 (96) 93 04/17/20 01:21 94 18 90 04/17/20 01:00 92 18 133/76 (95) 95 04/17/20 00:30 85 18 117/61 (79) 96 04/17/20 00:00 Mechanical Ventilator 04/17/20 00:00 80 18 93/53 (66) 95 04/17/20 00:00 90 04/17/20 00:00 99.6 80 18 93/53 (66) 95 04/17/20 00:00 83 04/16/20 23:30 79 18 97/56 (70) 97 04/16/20 23:18 79 18 90 04/16/20 23:00 79 18 91/55 (67) 99 04/16/20 22:30 85 18 90/55 (67) 99 04/16/20 22:15 85 18 98 04/16/20 22:00 85 18 95/56 (69) 98 04/16/20 21:45 88 18 96 04/16/20 21:45 88 18 96 04/16/20 21:43 90 18 109/62 (78) 97 04/16/20 21:30 80 18 81/49 (60) 97 04/16/20 21:30 80 18 81/49 (60) 97 04/16/20 21:29 81 18 82/50 (61) 97 04/16/20 21:15 86 18 90 04/16/20 21:11 18 91/58 Mechanical Ventilator 100 04/16/20 21:08 18 91/58 Mechanical Ventilator 100 04/16/20 21:00 86 18 82/51 (61) 96 04/16/20 20:32 100 18 95/52 (66) 98 04/16/20 20:30 100 18 88/55 (66) 98 04/16/20 20:11 18 11/64 Mechanical Ventilator 100 04/16/20 20:08 18 111/64 Mechanical Ventilator 100 04/16/20 20:00 109 04/16/20 20:00 108 20 118/66 (83) 99 04/16/20 20:00 Mechanical Ventilator 04/16/20 20:00 100 04/16/20 20:00 108 20 118/66 (83) 99 04/16/20 19:30 113 21 123/70 (87) 99 04/16/20 19:15 111 21 90 04/16/20 19:11 18 120/63 Mechanical Ventilator 100 04/16/20 19:08 18 120/63 Mechanical Ventilator 100 04/16/20 19:00 116 21 130/73 (92) 99 04/16/20 19:00 116 21 130/73 (92) 99 04/16/20 18:30 124 19 135/82 (99) 99 04/16/20 18:11 23 125/73 Endotracheal Tube 100 04/16/20 18:08 23 125/76 100 04/16/20 18:00 116 21 125/76 (92) 98 04/16/20 18:00 120 19 125/76 (92) 99 04/16/20 17:00 119 23 132/70 (90) 97 04/16/20 16:57 23 132/70 Endotracheal Tube 100 04/16/20 16:34 15 83/55 Endotracheal Tube 100 Height (Feet): 5 Height (Inches): 10.00 Weight (Pounds): 240 General Appearance: other - on vent, no pressors HEENT: normocephalic, atraumatic, no JVD, other - oral - intbated Respiratory/Chest: crackles/rales, rhonchi - bilaterally Cardiovascular: normal rate, regular rhythm Abdomen: soft, non tender, no organomegaly, non distended Genitourinary: other - + joseph Extremities: no cyanosis Skin: no rash Neurologic/Psychiatric: other - sedated, weak, on vent Lymphatic: no neck adenopathy Musculoskeletal: no effusion CT chest: IMPRESSION: There are mild subpleural ground-glass and consolidating infiltrates in the dependent portions of both lower lobes and to lesser degree the upper lobes consistent with bilateral pneumonia. The infiltrates are typical for Covid 19. No evidence of pulmonary embolus. CT abdomen and pelvis: IMPRESSION: 1. Scattered hepatic hypodense lesions, too small to characterize on this examination without intravenous contrast. 2. Colonic diverticulosis without evidence of acute diverticulitis. 3. Scattered enlarged mesenteric lymph nodes, presumably reactive. teral pneumonia. The infiltrates are typical for Covid 19. No evidence of pulmonary embolus. Chest x-ray - 12/19/19 - Indication: Shortness of breath Technique: One view of the chest Comparison: 02/17/2020 Findings: Interim worsening of bilateral infiltrates, particularly on the right. The heart is borderline enlarged. The pleural spaces are clear. Left arm PICC is again demonstrated Impression: Worsening bilateral infiltrates over one day, likely pneumonia CT chest - 02/19/20 - IMPRESSION: Increased extensive patchy ground-glass opacities and densities throughout the lungs, suggestive of Covid 19 infection. Chest x-ray 02/23/20 - Procedure: XRAY Chest 1v As Indication: Reason For Exam: INFECT Technique: One view of the chest Comparison: 02/20/2020 Findings: Allowing for differences in exposure technique, bilateral mid and lower lung infiltrates are probably unchanged. The heart size is normal. The pleural spaces are clear. Impression: Unchanged, over 4 days, findings as above. Chest x-ray - 02/25/20 - FINDINGS: Lungs: Interval slightly worsening bilateral airspace disease. Pleural space: Unremarkable. No pneumothorax. Heart: Unremarkable. No cardiomegaly. Mediastinum: Unremarkable. Bones/joints: Unremarkable. IMPRESSION: Interval slightly worsening bilateral airspace disease. Chest x-ray - 03/02/20 - Procedure: XRAY Chest 1v Indication: Shortness of breath Technique: One view of the chest Comparison: 02/25/2020 Findings: Bilateral interstitial and airspace infiltrates are unchanged. The heart size is normal. Left arm PICC is again demonstrated Impression: Unchanged, over one day, findings as above. Chest x-ray - 03/06/20 - Procedure: XRAY Chest 1v Indication: Shortness of breath Technique: One view of the chest Comparison: 03/02/2020 Findings: Bilateral infiltrates are unchanged. Normal heart size. Pleural spaces are clear Chest x-ray - 03/12/10 - Impression: COMPARISON: Chest radiograph March 06, 2020. FINDINGS/IMPRESSION: Improving basilar infiltrates. Follow chest radiograph recommended. The upper lung finley are clear. No pneumothorax. Stable cardiomegaly. Stable left upper extremity PICC line. anged, over 4 days, findings as above. Chest x-ray - 03/17/20 - Procedure: XRAY Chest 1v Indication: Shortness of breath Technique: One view of the chest Comparison: 03/12/2020 Findings: Left arm PICC is again demonstrated. Infiltrates are unchanged. The heart size is upper limits of normal. Impression: Unchanged, over 5 days, findings as above. Abdominal US - IMPRESSION: 1. Gallbladder is normal. 2. Hepatic steatosis. 3. 1.7 cm cyst right kidney. Impression. Chest x-ray - Procedure: XRAY Chest 1v Indication: Shortness of breath Technique: One view of the chest Comparison: 03/17/2020 Findings: Bilateral right greater than left infiltrates again demonstrated. The heart size is normal. There is a left arm PICC in good position. Impression: Unchanged, over 5 days, findings as above. Chest x-ray - 03/29/20 - Procedure: XRAY Chest 1v Indication: Cough Technique: One view of the chest Comparison: 03/28/2020 Findings: Bilateral infiltrates are unchanged or slightly worse, allowing for differences in exposure technique. The pleural spaces are clear. The heart size is normal. Stable satisfactory position of endotracheal tube, left arm PICC. Orogastric tube has retracted somewhat the position remains satisfactory. Impression: Stable to slightly worse bilateral infiltrates. Otherwise little pascual nge over one day Chest x-ray - 03/31/20 - Procedure: XRAY Chest 1v Indication: Post endotracheal tube repositioning Technique: One view of the chest Comparison: 3 hours earlier Findings: Interim advancement of endotracheal tube, tip projecting approximately 5 cm above the sunny. Interim advancement of orogastric tube as well. Bilateral infiltrates are unchanged. Left arm PICC remains Impression: Improved and now satisfactory tube positions as described. ICU nurse Maeve notified at the time of interpretation Chest x-ray - 04/02/20 - COMPARISON: Chest x-rays dated 03/31/20 and 03/12/20. FINDINGS: Lungs: No significant change in bilateral prominent interstitial markings. The lungs are otherwise clear without focal consolidation. Pleural space: Unremarkable. The costophrenic angles are sharp. No visible pneumothorax. Heart: Unremarkable. No cardiomegaly. Mediastinum: Unremarkable. Bones/joints: Unremarkable. Tubes, lines and devices: Endotracheal tube tip 6.5 cm above the sunny. NG tube tip in the distal stomach. Telemetry leads overlie the thorax. IMPRESSION: No significant change in bilateral prominent interstitial markings. Procedure: XRAY Chest 1v Procedure: XRAY Chest 1v Reason for study: Shortness of breath 04/06/20 - Comparison films: 04/02/2020. FINDINGS: Endotracheal tube and NG tube remain in place. There is worsening of right basilar infiltrates. Some haziness in left lung base unchanged. Cardiac and mediastinal silhouette are within normal limits. CP angles are sharp. The bony thorax appear unremarkable. IMPRESSION: Worsening of right basilar infiltrate. Chest x-ray - 04/09/20 - Procedure: XRAY Chest 1v FILM CXR 1 VIEW INDICATION: Infection COMPARISON: April 05, 2020 FINDINGS: Single frontal view demonstrates a normal cardiomediastinal silhouette. Endotracheal tube in place with tip above the sunny. Elevation of the right hemidiaphragm. Interstitial prominence with bilateral lower lobe infiltrates. Lung bases appear worse from the prior exam. Small right effusion. Right-sided PICC line with tip in the superior vena cava. Enteric tube in place. IMPRESSION: Interstitial prominence and bilateral lower lobe pneumonia with worsening appearance from the prior study. Chest x-ray - 04/12/20 - Procedure: XRAY Chest 1v Indication: Shortness of breath Technique: One view of the chest Comparison: 04/09/2020 Findings: Stable satisfactory tube and line positions. Bilateral infiltrates have worsened slightly since prior study. The heart size is normal. Impression: Worsening bilateral infiltrates, over 3 days Chest x-ray - 04/15/20 - COMPARISON: 02/11/21. FINDINGS: Lungs: There is been no significant change in mild to moderate patchy diffuse bilateral alveolar infiltrates which are most prominent in the lung bases. Pleural space: Unremarkable. No pneumothorax. Heart: Unremarkable. No cardiomegaly. Mediastinum: Unremarkable. Bones/joints: Unremarkable. Tubes, lines and devices: There is an endotracheal tube, right-sided PICC line and NG tube in good position. IMPRESSION: There is been no significant change in mild to moderate patchy diffuse bilateral alveolar infiltrates which are most prominent in the lung bases. Microbiology Date/Time Source Procedure Growth Status 04/14/20 16:35 Stool Clostridium difficile Toxin Assay - Final Complete 04/12/20 08:40 Urine,Clean Catch Urine Culture - Final Cynthia Parapsilosis Complete 04/12/20 08:40 Sputum Gram Stain - Final Complete 04/12/20 08:40 Sputum Sputum Culture - Final NORMAL UPPER RESPIRATORY WILIAM AT 48 ... Complete 04/11/20 18:55 Blood Blood Culture - Final NO GROWTH AFTER 5 DAYS Complete Microbiology Date/Time Source Procedure Growth Status 04/14/20 16:35 Stool Clostridium difficile Toxin Assay - Final Complete Laboratory Tests Test 04/16/20 17:35 04/17/20 05:18 Vancomycin Level Trough 23.1 ug/mL (5.0-12.0) H White Blood Count 6.0 K/UL (4.8-10.8) Red Blood Count 3.47 M/UL (4.70-6.10) L Hemoglobin 9.8 G/DL (14.2-18.0) L Hematocrit 30.9 % (42.0-52.0) L Mean Corpuscular Volume 89 FL (80-99) Mean Corpuscular Hemoglobin 28.4 PG (27.0-31.0) Mean Corpuscular Hemoglobin Concent 31.8 G/DL (32.0-36.0) L Red Cell Distribution Width 17.3 % (11.6-14.8) H Platelet Count 227 K/UL (150-450) Mean Platelet Volume 7.4 FL (6.5-10.1) Neutrophils (%) (Auto) 82.1 % (45.0-75.0) H Lymphocytes (%) (Auto) 12.9 % (20.0-45.0) L Monocytes (%) (Auto) 4.6 % (1.0-10.0) Eosinophils (%) (Auto) 0.0 % (0.0-3.0) Basophils (%) (Auto) 0.3 % (0.0-2.0) Sodium Level 142 MMOL/L (136-145) Potassium Level 3.5 MMOL/L (3.5-5.1) Chloride Level 100 MMOL/L (98-107) Carbon Dioxide Level 40 MMOL/L (21-32) H Anion Gap 1 mmol/L (5-15) L Blood Urea Nitrogen 21 mg/dL (7-18) H Creatinine 0.5 MG/DL (0.55-1.30) L Estimat Glomerular Filtration Rate > 60 mL/min (>60) Glucose Level 113 MG/DL (74-106) H Calcium Level 8.3 MG/DL (8.5-10.1) L Phosphorus Level 3.9 MG/DL (2.5-4.9) Magnesium Level 2.2 MG/DL (1.8-2.4) Total Bilirubin 0.7 MG/DL (0.2-1.0) Aspartate Amino Transf (AST/SGOT) 37 U/L (15-37) Alanine Aminotransferase (ALT/SGPT) 143 U/L (12-78) H Alkaline Phosphatase 352 U/L (46-116) H C-Reactive Protein, Quantitative 5.2 mg/dL (0.00-0.90) H Pro-B-Type Natriuretic Peptide 1221 pg/mL (0-125) H Total Protein 5.2 G/DL (6.4-8.2) L Albumin 1.9 G/DL (3.4-5.0) L Globulin 3.3 g/dL Albumin/Globulin Ratio 0.6 (1.0-2.7) L Current Medications Medications (Trade) Dose Ordered Sig/Dennis Route PRN Reason Start Time Stop Time Status Last Admin Dose Admin Acetaminophen (Tylenol) 650 mg Q4H PRN ORAL Temp >100.5 04/13/20 00:30 05/13/20 00:29 04/13/20 01:30 Bisacodyl (Dulcolax) 10 mg Q12H PRN RECTAL Constipation 03/18/20 16:45 06/16/20 16:44 Chlorhexidine Gluconate (Marlen-Hex 2%) 1 applic DAILY@1999 TOPIC 03/30/20 20:00 06/28/20 19:59 04/16/20 20:13 Dextrose (Dextrose 50%) 25 ml Q30M PRN IV Hypoglycemia 03/29/20 20:45 06/27/20 20:44 Dextrose (Dextrose 50%) 50 ml Q30M PRN IV Hypoglycemia 03/29/20 20:45 06/27/20 20:44 Enoxaparin Sodium (Lovenox) 80 mg EVERY 12 HOURS SUBQ 04/06/20 21:00 07/05/20 20:59 04/17/20 09:47 Fentanyl Citrate 250 ml @ 1 mls/hr Q24H IV 04/16/20 00:45 04/18/20 00:44 04/17/20 11:30 Hydralazine HCl (Apresoline) 10 mg Q4H PRN IV For High Blood Pressure 03/30/20 12:15 06/28/20 12:14 04/14/20 22:45 Insulin Aspart (NovoLOG) Q6HR SUBQ 03/30/20 00:00 06/28/20 00:00 04/17/20 11:48 Labetalol HCl (Normodyne) 10 mg Q4H PRN IV sbp greater tahtn 160 03/28/20 17:30 04/27/20 17:29 Methylprednisolone Sodium Succinate (Solu-MEDROL) 20 mg Q12HR IVP 04/12/20 21:00 06/20/20 20:59 04/17/20 09:47 Metoclopramide HCl (Reglan) 10 mg Q6H IVP 03/30/20 15:00 04/29/20 14:59 04/17/20 14:26 Micafungin Sodium 100 mg/Sodium Chloride 100 ml @ 100 mls/hr Q24H IVPB 04/09/20 15:00 04/22/20 23:59 04/17/20 15:56 Midazolam HCl 200 ml @ 0 mls/hr Q24H PRN IV Agitation 04/16/20 00:45 04/18/20 00:44 04/17/20 16:05 Pantoprazole (Protonix) 40 mg EVERY 12 HOURS IVP 04/01/20 21:00 05/01/20 20:59 04/17/20 09:47 Piperacillin Sod/ Tazobactam Sod 3.375 gm/Dextrose 110 ml @ 27.5 mls/hr EVERY 8 HOURS IVPB 04/17/20 22:00 04/22/20 21:59 UNV Trimethoprim/ Sulfamethoxazole (Bactrim-DS) 1 tab Q24H ORAL 03/29/20 17:00 05/10/20 16:59 04/17/20 16:01 Kisha Salazar MD Apr 17, 2020 16:36
--- NOTE | 2020-04-17 18:30 | NUR ---
NURSE NOTES: Tube feeding residual checked, 40mL, TF resumed, no vomiting noted. TF container and line changed. Pt's VSS, afebrile. Pt's BG checked, 159, insulin given per sliding scale order. Pt repositioned again. Oral care provided. Gown and bed linens changed. Safety precautions maintained. Will continue to monitor.
--- NOTE | 2020-04-17 19:05 | NUR ---
NURSE HAND-OFF REPORT: Latest Vital Signs: Temperature 98.8 , Pulse 68 , B/P 100 /60 , Respiratory Rate 18 , O2 SAT 98 , Mechanical Ventilator, 100% FiO2. Vital Sign Comment: EKG Rhythm: Sinus Rhythm Rhythm change?: N MD Notified?: MD Response: Latest Hassan Fall Score: 50 Fall Risk: High Risk Safety Measures: Call light Within Reach, Bed Alarm Zone 3, Side Rails Side Rails x3, Bed position Low and Locked. Fall Precautions: Yellow Socks Yellow Gown Door Sign Patient Fall Education Report given to PRIYANKA Mitchell for continuity of care. Pt stable..
--- NOTE | 2020-04-17 19:20 | NUR ---
NURSE NOTES: pt report received from Tyrone MATHEW. pt status remains unchanged. pt is sedated neuro vick. 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 pt is oral intubated, sating 99%O2, no acute abnormalities noted resp vick. pt bed is low, locked, armed, call light within reach, bed rails up times 3. will follow plan of care.
[2020-04-17] MEDS: Dyna-Hex 2% Top Sol 2oz TOPIC SCH (20:38)
--- NOTE | 2020-04-17 21:30 | NUR ---
NURSE NOTES: pts 9PM meds passed. no change in condition.
--- NOTE | 2020-04-17 23:30 | NUR ---
NURSE NOTES: pts fentanyl drip at 300MCG and hr. pts versed drip running 15 mg an hr. pt appears sedated.
[2020-04-18] VITALS (24 sets, daily range): BP systolic 103–197; BP diastolic 56–99
--- NOTE | 2020-04-18 01:14 | NUR ---
NURSE NOTES: blood sugar assessed, pts blood sugar 127 finger stick. pt appears asymptomatic. no change in condition.
--- NOTE | 2020-04-18 03:20 | NUR ---
NURSE NOTES: pt repositioned and cleaned. vital signs stable.
[2020-04-18] MEDS: Metoclopramide 10mg/2ml Inj IVP SCH ×4 (03:43→20:34)
[2020-04-18] MEDS: fentaNYL 2500mcg/NS 250ml 250 ML IV SCH ×3 (04:00→16:48)
[2020-04-18 04:46] LABS: HEMATOCRIT 29.1 % (42.0-52.0); HEMOGLOBIN 9.2 G/DL (14.2-18.0); MEAN CORPUSCULAR VOLUME 90 FL (80-99); PLATELET COUNT 233 K/UL (150-450); RED BLOOD COUNT 3.22 M/UL (4.70-6.10); RED CELL DISTRIBUTION WIDTH 17.4 % (11.6-14.8); WHITE BLOOD COUNT 6.6 K/UL (4.8-10.8)
[2020-04-18 04:58] LABS: ALANINE AMINOTRANSFERASE 115 U/L (12-78); ALBUMIN/GLOBULIN RATIO 0.6 (1.0-2.7); ALKALINE PHOSPHATASE 285 U/L (46-116); ANION GAP 0 mmol/L (5-15); ASPARTATE AMINO TRANSFERASE 23 U/L (15-37); BILIRUBIN,TOTAL 0.6 MG/DL (0.2-1.0); BLOOD UREA NITROGEN 19 mg/dL (7-18); CALCIUM 8.7 MG/DL (8.5-10.1); CARBON DIOXIDE 38 MMOL/L (21-32); CHLORIDE 102 MMOL/L (98-107); CREATININE 0.5 MG/DL (0.55-1.30); POTASSIUM 4.1 MMOL/L (3.5-5.1); SODIUM 140 MMOL/L (136-145)
--- NOTE | 2020-04-18 05:00 | NUR ---
NURSE NOTES: pt vital signs stable. Rass score at -2.
[2020-04-18] MEDS: Piperacillin/Tazobactam 3.375 GM in D5W 110 ML IVPB SCH ×3 (05:28→21:34)
[2020-04-18] MEDS: NovoLOG Insulin Flexpen SUBQ SCH ×3 (05:39→18:11)
[2020-04-18] MEDS: Versed 100mg/NS 200ml 200 ML IV PRN ×3 (07:04→21:39)
--- NOTE | 2020-04-18 07:37 | General Progress Note ---
Subjective ROS Limited/Unobtainable: No Allergies: Coded Allergies: No Known Allergies (Unverified , 02/05/20) Objective Last 24 Hour Vital Signs Date Time Temp Pulse Resp B/P (MAP) Pulse Ox O2 Delivery O2 Flow Rate FiO2 04/18/20 07:04 18 162/79 100 04/18/20 06:59 20 158/88 Endotracheal Tube 100 04/18/20 06:00 20 155/72 Endotracheal Tube 100 04/18/20 05:00 18 152/92 Endotracheal Tube 100 04/18/20 05:00 20 150/76 Endotracheal Tube 100 04/18/20 04:00 100 04/18/20 04:00 98.3 76 18 130/77 (94) 98 04/18/20 04:00 19 100/72 Endotracheal Tube 100 04/18/20 04:00 19 108/60 Endotracheal Tube 100 04/18/20 04:00 Mechanical Ventilator 04/18/20 04:00 74 04/18/20 03:35 75 18 90 04/18/20 03:00 18 103/68 Endotracheal Tube 100 04/18/20 03:00 20 112/65 Endotracheal Tube 100 04/18/20 03:00 68 18 118/69 (85) 100 04/18/20 02:00 20 107/65 Endotracheal Tube 100 04/18/20 02:00 20 102/73 Endotracheal Tube 100 04/18/20 02:00 70 18 123/74 (90) 99 04/18/20 01:00 72 18 128/77 (94) 100 04/18/20 01:00 18 117/67 Endotracheal Tube 100 04/18/20 01:00 18 120/81 Endotracheal Tube 100 04/18/20 00:00 93 04/18/20 00:00 Mechanical Ventilator 04/18/20 00:00 18 125/62 Endotracheal Tube 100 04/18/20 00:00 18 111/70 Endotracheal Tube 100 04/18/20 00:00 97.8 78 18 119/70 (86) 98 04/18/20 00:00 100 04/17/20 23:15 98 21 100 04/17/20 23:03 18 137/85 Endotracheal Tube 100 04/17/20 23:00 99 20 161/77 (105) 86 04/17/20 23:00 18 114/74 Endotracheal Tube 100 04/17/20 22:31 18 125/63 Endotracheal Tube 100 04/17/20 22:00 112 22 167/77 (107) 86 04/17/20 21:00 100 22 162/81 (108) 95 04/17/20 20:00 69 04/17/20 20:00 98.7 69 18 98/58 (71) 98 04/17/20 20:00 18 127/65 Endotracheal Tube 100 04/17/20 20:00 100 04/17/20 20:00 Mechanical Ventilator 04/17/20 19:25 68 18 90 04/17/20 19:15 68 18 100/60 (73) 98 04/17/20 19:00 18 104/64 Mechanical Ventilator 100 04/17/20 19:00 18 100/60 Mechanical Ventilator 100 04/17/20 19:00 70 18 100/60 (73) 98 04/17/20 18:00 74 18 90/54 (66) 97 04/17/20 18:00 18 99/57 Mechanical Ventilator 100 04/17/20 18:00 18 96/57 Mechanical Ventilator 100 04/17/20 17:00 83 18 105/52 (69) 96 04/17/20 17:00 18 118/69 Mechanical Ventilator 100 04/17/20 17:00 18 118/69 Mechanical Ventilator 100 04/17/20 16:07 90 04/17/20 16:05 21 112/58 Mechanical Ventilator 100 04/17/20 16:00 Mechanical Ventilator 04/17/20 16:00 100 04/17/20 16:00 18 120/63 Mechanical Ventilator 100 04/17/20 16:00 18 115/60 Mechanical Ventilator 100 04/17/20 16:00 98.8 92 18 115/60 (78) 93 04/17/20 15:20 100 04/17/20 15:00 97 20 129/63 (85) 89 04/17/20 15:00 18 123/63 Mechanical Ventilator 100 04/17/20 15:00 21 129/63 Mechanical Ventilator 100 04/17/20 14:00 18 129/61 Mechanical Ventilator 90 04/17/20 14:00 18 129/61 Mechanical Ventilator 90 04/17/20 14:00 69 18 98/54 (69) 97 04/17/20 13:07 70 18 90 04/17/20 13:00 18 97/52 Mechanical Ventilator 90 04/17/20 13:00 18 97/52 Mechanical Ventilator 90 04/17/20 13:00 71 18 101/53 (69) 96 04/17/20 12:14 74 04/17/20 12:00 Mechanical Ventilator 04/17/20 12:00 90 04/17/20 12:00 98.5 75 18 105/52 (69) 93 04/17/20 12:00 18 105/58 Mechanical Ventilator 90 04/17/20 12:00 18 105/58 Mechanical Ventilator 90 04/17/20 11:30 24 94/47 Mechanical Ventilator 90 04/17/20 11:00 18 95/50 Mechanical Ventilator 90 04/17/20 11:00 18 95/50 Mechanical Ventilator 90 04/17/20 11:00 74 18 95/50 (65) 90 04/17/20 10:00 18 103/50 Mechanical Ventilator 90 04/17/20 10:00 18 103/50 Mechanical Ventilator 90 04/17/20 10:00 89 19 135/80 (98) 92 04/17/20 09:24 25 101/83 Mechanical Ventilator 90 04/17/20 09:00 70 18 90 04/17/20 09:00 71 18 107/58 (74) 93 04/17/20 09:00 18 167/78 Mechanical Ventilator 90 04/17/20 09:00 18 167/78 Mechanical Ventilator 90 04/17/20 08:03 68 04/17/20 08:00 18 135/80 Mechanical Ventilator 90 04/17/20 08:00 18 95/51 Mechanical Ventilator 90 04/17/20 08:00 90 04/17/20 08:00 Mechanical Ventilator 04/17/20 08:00 98.3 69 18 110/58 (75) 94 Intake and Output 04/17/20 04/18/20 19:00 07:00 Intake Total 1787.000 ml 1022.0 ml Output Total 665 ml 450 ml Balance 1122.000 ml 572.0 ml Free Water 60 ml IV Total 1227.000 ml 572.0 ml Tube Feeding 500 ml 450 ml Output Urine Total 650 ml 450 ml Stool Total 15 ml # Bowel Movements 1 Laboratory Tests 04/18/20 03:05: White Blood Count 6.6, Red Blood Count 3.22L, Hemoglobin 9.2L, Hematocrit 29.1L, Mean Corpuscular Volume 90, Mean Corpuscular Hemoglobin 28.5, Mean Corpuscular Hemoglobin Concent 31.6L, Red Cell Distribution Width 17.4H, Platelet Count 233, Mean Platelet Volume 7.1, Neutrophils (%) (Auto) , Lymphocytes (%) (Auto) , Monocytes (%) (Auto) , Eosinophils (%) (Auto) , Basophils (%) (Auto) , Neutrophils % (Manual) [Pending], Lymphocytes % (Manual) [Pending], Platelet Estimate [Pending], Platelet Morphology [Pending], Sodium Level 140, Potassium Level 4.1, Chloride Level 102, Carbon Dioxide Level 38H, Anion Gap 0L, Blood Urea Nitrogen 19H, Creatinine 0.5L, Estimat Glomerular Filtration Rate > 60, Glucose Level 155H, Calcium Level 8.7, Total Bilirubin 0.6, Aspartate Amino Transf (AST/SGOT) 23, Alanine Aminotransferase (ALT/SGPT) 115H, Alkaline Phosphatase 285H, Total Protein 5.3L, Albumin 2.0L, Globulin 3.3, Albumin/Globulin Ratio 0.6L Height (Feet): 5 Height (Inches): 10.00 Weight (Pounds): 240 General Appearance: no apparent distress EENT: normal ENT inspection Neck: supple Cardiovascular: normal rate Respiratory/Chest: decreased breath sounds Abdomen: normal bowel sounds, non tender, soft Extremities: non-tender Assessment/Plan Status: not improved, unchanged Assessment/Plan: hep c + but neg RNA OGTF reglan 10 mg repeat labs fu LFTS>>>improving worsening resp status will fu Da Quintero MD Apr 18, 2020 07:37
--- NOTE | 2020-04-18 07:42 | NUR ---
NURSE HAND-OFF REPORT: Latest Vital Signs: Temperature 98.3 , Pulse 121 , B/P 162 /79 , Respiratory Rate 18 , O2 SAT 93 , Endotracheal Tube, O2 Flow Rate . Vital Sign Comment: stable EKG Rhythm: Sinus Tachycardia Rhythm change?: N Notified?: Courtney aPige MD Response: Message left await call Latest Hassan Fall Score: 50 Fall Risk: High Risk Safety Measures: Call light Within Reach, Bed Alarm Zone 3, Side Rails Side Rails x3, Bed position Low and Locked. Fall Precautions: Yellow Socks Yellow Gown Door Sign Patient Fall Education Report given to Alivia Branch RN.
--- NOTE | 2020-04-18 07:44 | NUR ---
NURSE NOTES: Received report from Stephen Huizar RN.
[2020-04-18] MEDS: Pantoprazole Inj IVP SCH ×2 (08:45→20:35)
[2020-04-18] MEDS: Solu-MEDROL 40mg Inj IVP SCH ×2 (08:45→20:34)
--- NOTE | 2020-04-18 08:45 | NUR ---
NURSE NOTES: Pt. in bed, sedated but response to tactile stimuli. No s/sx of distress. ETT in placed with vent setting AC18/VT750/Fi O2 of 100%/P5. No grimacing noted. OGT feeding in placed running Glucerna 1.5 at 50cc/hr. No n/v noted. Tolerating well. HOB elevated at all times. Rectal tube in placed patent/intact with minimal output in the bag. PICC line in placed at right upper arm patent/intact. F/C in placed patent/intact draining jeff colored urine. Bed in low position, locked. Call light within reach. Will cont. to monitor.
[2020-04-18] MEDS: Enoxaparin 80mg Inj SUBQ SCH ×2 (08:47→20:34)
--- NOTE | 2020-04-18 08:50 | NUR ---
RADIOLOGY DEPT., CHEST X-RAY DONE.-P.DYE
--- NOTE | 2020-04-18 10:31 | NUR ---
NURSE NOTES: Seen by Dr. Mata and ordered to titrate Fi O2 to 70% (if tolerated). R.T made aware.
--- NOTE | 2020-04-18 11:20 | NUR ---
NURSE NOTES: Turned and repositioned. Oral care and suction rendered. No grimacing noted.
--- NOTE | 2020-04-18 11:27 | Pulmonology Progress Note ---
Subjective ROS Limited/Unobtainable: No Interval Events: Intubated 03/28/20 Constitutional: Reports: other HEENT: Repors: no symptoms Respiratory: Reports: dry cough, shortness of breath Cardiovascular: Reports: no symptoms Gastrointestinal/Abdominal: Reports: diarrhea Psychiatric: Reports: other Skin: Denies: rash Musculoskeletal: Reports: other Allergies: Coded Allergies: No Known Allergies (Unverified , 02/05/20) Objective Last 24 Hour Vital Signs Date Time Temp Pulse Resp B/P (MAP) Pulse Ox O2 Delivery O2 Flow Rate FiO2 04/18/20 10:00 78 18 133/75 (94) 96 04/18/20 10:00 80 04/18/20 10:00 18 133/75 Endotracheal Tube 80 04/18/20 10:00 18 133/75 Endotracheal Tube 80 04/18/20 09:00 18 113/65 Endotracheal Tube 80 04/18/20 09:00 18 113/65 Endotracheal Tube 80 04/18/20 09:00 75 18 113/65 (81) 99 04/18/20 08:00 100 04/18/20 08:00 Mechanical Ventilator 04/18/20 08:00 98.5 95 21 150/86 (107) 94 04/18/20 08:00 21 150/86 Endotracheal Tube 80 04/18/20 08:00 21 150/86 Endotracheal Tube 80 04/18/20 08:00 73 04/18/20 07:30 78 18 90 04/18/20 07:04 18 162/79 100 04/18/20 07:00 121 26 197/89 (125) 93 04/18/20 06:59 20 158/88 Endotracheal Tube 100 04/18/20 06:00 20 155/72 Endotracheal Tube 100 04/18/20 06:00 102 25 181/99 (126) 93 04/18/20 05:00 18 152/92 Endotracheal Tube 100 04/18/20 05:00 20 150/76 Endotracheal Tube 100 04/18/20 05:00 84 18 137/72 (93) 97 04/18/20 04:00 100 04/18/20 04:00 98.3 76 18 130/77 (94) 98 04/18/20 04:00 19 100/72 Endotracheal Tube 100 04/18/20 04:00 19 108/60 Endotracheal Tube 100 04/18/20 04:00 Mechanical Ventilator 04/18/20 04:00 74 04/18/20 03:35 75 18 90 04/18/20 03:00 18 103/68 Endotracheal Tube 100 04/18/20 03:00 20 112/65 Endotracheal Tube 100 04/18/20 03:00 68 18 118/69 (85) 100 04/18/20 02:00 20 107/65 Endotracheal Tube 100 04/18/20 02:00 20 102/73 Endotracheal Tube 100 04/18/20 02:00 70 18 123/74 (90) 99 04/18/20 01:00 72 18 128/77 (94) 100 04/18/20 01:00 18 117/67 Endotracheal Tube 100 04/18/20 01:00 18 120/81 Endotracheal Tube 100 04/18/20 00:00 93 04/18/20 00:00 Mechanical Ventilator 04/18/20 00:00 18 125/62 Endotracheal Tube 100 04/18/20 00:00 18 111/70 Endotracheal Tube 100 04/18/20 00:00 97.8 78 18 119/70 (86) 98 04/18/20 00:00 100 04/17/20 23:15 98 21 100 04/17/20 23:03 18 137/85 Endotracheal Tube 100 04/17/20 23:00 99 20 161/77 (105) 86 04/17/20 23:00 18 114/74 Endotracheal Tube 100 04/17/20 22:31 18 125/63 Endotracheal Tube 100 04/17/20 22:00 112 22 167/77 (107) 86 04/17/20 21:00 100 22 162/81 (108) 95 04/17/20 20:00 69 04/17/20 20:00 98.7 69 18 98/58 (71) 98 04/17/20 20:00 18 127/65 Endotracheal Tube 100 04/17/20 20:00 100 04/17/20 20:00 Mechanical Ventilator 04/17/20 19:25 68 18 90 04/17/20 19:15 68 18 100/60 (73) 98 04/17/20 19:00 18 104/64 Mechanical Ventilator 100 04/17/20 19:00 18 100/60 Mechanical Ventilator 100 04/17/20 19:00 70 18 100/60 (73) 98 04/17/20 18:00 74 18 90/54 (66) 97 04/17/20 18:00 18 99/57 Mechanical Ventilator 100 04/17/20 18:00 18 96/57 Mechanical Ventilator 100 04/17/20 17:00 83 18 105/52 (69) 96 04/17/20 17:00 18 118/69 Mechanical Ventilator 100 04/17/20 17:00 18 118/69 Mechanical Ventilator 100 04/17/20 16:07 90 04/17/20 16:05 21 112/58 Mechanical Ventilator 100 04/17/20 16:00 Mechanical Ventilator 04/17/20 16:00 100 04/17/20 16:00 18 120/63 Mechanical Ventilator 100 04/17/20 16:00 18 115/60 Mechanical Ventilator 100 04/17/20 16:00 98.8 92 18 115/60 (78) 93 04/17/20 15:20 100 04/17/20 15:00 97 20 129/63 (85) 89 04/17/20 15:00 18 123/63 Mechanical Ventilator 100 04/17/20 15:00 21 129/63 Mechanical Ventilator 100 04/17/20 14:00 18 129/61 Mechanical Ventilator 90 04/17/20 14:00 18 129/61 Mechanical Ventilator 90 04/17/20 14:00 69 18 98/54 (69) 97 04/17/20 13:07 70 18 90 04/17/20 13:00 18 97/52 Mechanical Ventilator 90 04/17/20 13:00 18 97/52 Mechanical Ventilator 90 04/17/20 13:00 71 18 101/53 (69) 96 04/17/20 12:14 74 04/17/20 12:00 Mechanical Ventilator 04/17/20 12:00 90 04/17/20 12:00 98.5 75 18 105/52 (69) 93 04/17/20 12:00 18 105/58 Mechanical Ventilator 90 04/17/20 12:00 18 105/58 Mechanical Ventilator 90 04/17/20 11:30 24 94/47 Mechanical Ventilator 90 Intake and Output 04/17/20 04/18/20 19:00 07:00 Intake Total 1787.000 ml 1172.0 ml Output Total 665 ml 600 ml Balance 1122.000 ml 572.0 ml Free Water 60 ml IV Total 1227.000 ml 572.0 ml Tube Feeding 500 ml 600 ml Output Urine Total 650 ml 600 ml Stool Total 15 ml # Bowel Movements 1 General Appearance: WD/WN, no acute distress HEENT: normocephalic, atraumatic Respiratory: chest wall non-tender Cardiovascular: normal rate, regular rhythm Abdomen: normal bowel sounds, soft, non tender, other - obese Laboratory Tests 04/18/20 03:05: White Blood Count 6.6, Red Blood Count 3.22L, Hemoglobin 9.2L, Hematocrit 29.1L, Mean Corpuscular Volume 90, Mean Corpuscular Hemoglobin 28.5, Mean Corpuscular Hemoglobin Concent 31.6L, Red Cell Distribution Width 17.4H, Platelet Count 233, Mean Platelet Volume 7.1, Neutrophils (%) (Auto) , Lymphocytes (%) (Auto) , Monocytes (%) (Auto) , Eosinophils (%) (Auto) , Basophils (%) (Auto) , Differential Total Cells Counted 100, Neutrophils % (Manual) 87H, Lymphocytes % (Manual) 10L, Monocytes % (Manual) 3, Eosinophils % (Manual) 0, Basophils % (Manual) 0, Band Neutrophils 0, Platelet Estimate Adequate, Platelet Morphology Normal, Hypochromasia 1+, Anisocytosis 1+, Sodium Level 140, Potassium Level 4.1, Chloride Level 102, Carbon Dioxide Level 38H, Anion Gap 0L, Blood Urea Nitrogen 19H, Creatinine 0.5L, Estimat Glomerular Filtration Rate > 60, Glucose Level 155H, Calcium Level 8.7, Total Bilirubin 0.6, Aspartate Amino Transf (AST/SGOT) 23, Alanine Aminotransferase (ALT/SGPT) 115H, Alkaline Phosphatase 285H, Total Protein 5.3L, Albumin 2.0L, Globulin 3.3, Albumin/Globulin Ratio 0.6L Current Medications Medications (Trade) Dose Ordered Sig/Dennis Route PRN Reason Start Time Stop Time Status Last Admin Dose Admin Acetaminophen (Tylenol) 650 mg Q4H PRN ORAL Temp >100.5 04/13/20 00:30 05/13/20 00:29 04/13/20 01:30 Bisacodyl (Dulcolax) 10 mg Q12H PRN RECTAL Constipation 03/18/20 16:45 06/16/20 16:44 Chlorhexidine Gluconate (Marlen-Hex 2%) 1 applic DAILY@1999 TOPIC 03/30/20 20:00 06/28/20 19:59 04/17/20 20:38 Dextrose (Dextrose 50%) 25 ml Q30M PRN IV Hypoglycemia 03/29/20 20:45 06/27/20 20:44 Dextrose (Dextrose 50%) 50 ml Q30M PRN IV Hypoglycemia 03/29/20 20:45 06/27/20 20:44 Enoxaparin Sodium (Lovenox) 80 mg EVERY 12 HOURS SUBQ 04/06/20 21:00 07/05/20 20:59 04/18/20 08:47 Fentanyl Citrate 250 ml @ 1 mls/hr Q24H IV 04/18/20 04:00 04/20/20 03:59 04/18/20 06:59 Hydralazine HCl (Apresoline) 10 mg Q4H PRN IV For High Blood Pressure 03/30/20 12:15 06/28/20 12:14 04/14/20 22:45 Insulin Aspart (NovoLOG) Q6HR SUBQ 03/30/20 00:00 06/28/20 00:00 04/18/20 05:39 Labetalol HCl (Normodyne) 10 mg Q4H PRN IV sbp greater tahtn 160 03/28/20 17:30 04/27/20 17:29 Methylprednisolone Sodium Succinate (Solu-MEDROL) 20 mg Q12HR IVP 04/12/20 21:00 06/20/20 20:59 04/18/20 08:45 Metoclopramide HCl (Reglan) 10 mg Q6H IVP 03/30/20 15:00 04/29/20 14:59 04/18/20 09:20 Micafungin Sodium 100 mg/Sodium Chloride 100 ml @ 100 mls/hr Q24H IVPB 04/09/20 15:00 04/22/20 23:59 04/17/20 15:56 Midazolam HCl 200 ml @ 0 mls/hr Q24H PRN IV Agitation 04/17/20 22:30 04/24/20 22:29 04/18/20 07:04 Pantoprazole (Protonix) 40 mg EVERY 12 HOURS IVP 04/01/20 21:00 05/01/20 20:59 04/18/20 08:45 Piperacillin Sod/ Tazobactam Sod 3.375 gm/Dextrose 110 ml @ 27.5 mls/hr EVERY 8 HOURS IVPB 04/17/20 22:00 04/22/20 21:59 04/18/20 05:28 Trimethoprim/ Sulfamethoxazole (Bactrim-DS) 1 tab Q24H ORAL 03/29/20 17:00 05/10/20 16:59 04/17/20 16:01 Assessment/Plan Assessment/Plan Assessment/Plan 1.COVID-19 pneumonia. - Completed specific therapies - On solumedrol 2. DVT ppx - on lovenox 3. Hypertension - no longer on meds - Not requiring pressors 4. Leukocytosis; - ID following - On abx - Budding yeast on blood CS 5. Elevated LFT - positive Hep C; treated in the past with IF 6. Respiratory failure -Intubated 03/28/20 -Family aware - Prognosis guarded - Vt 750; rate 18 -On sedation 7. Discussed with cardiology -No evidence for cardiac dysfunction or PE -tachycardic; will increase sedation 8. AMS -back on sedation - has apparent left arm paresis - Will consider CT brain when more stable S/p new PICC line On abx Slowly improving oxygenation Noted left upper extremity swelling. Has DVT; on full dose Lovenox Continue sedation, DC propofol given high triglycerides. Continue fentanyl and Versed. Saturations plummeted 04/12/20 when patient became agitated Now fully sedated on 80% FiO2 ; PEEP 5 Intubated now for 2-3 weeks Discussed tracheostomy with surgery Will decrease diuresis; had diuresed neg 4 L last 48 hours CXR shows fine interstitial edema John Mata MD Apr 18, 2020 11:27
--- NOTE | 2020-04-18 13:42 | NUR ---
NURSE NOTES: Pt. responding upon calling his name tried to open his eyes. Sedated. No s/sx of distress. Tolerating Fi O2 of 80% for 3 hours now. Sat at 93%. Will cont. to monitor.
--- NOTE | 2020-04-18 13:50 | Diagnostic Imaging Report ---
Indication: Cough Technique: One view of the chest Comparison: 04/15/2020 Findings: Less optimal inspiration currently than previously. Stable satisfactory positions of endotracheal and orogastric tubes and right arm PICC. Bilateral infiltrates are again demonstrated, unchanged. Impression: Unchanged, over 3 days, findings as above.
--- NOTE | 2020-04-18 13:57 | NUR ---
CASE MANAGEMENT:REVIEW 04/18/20 SI: COVID PNEUMONIA~INTUBATED 98.5 73 21 150/86 94% ON VENT SUPPORT W/80% FIO2 PEEP~5.0 H/H-9.2/29.1 CO2+38 IS: IV LASIX QD FENTANYL GTT VERSED GTT IV ZOSYN Q8HRS NORVASC NG Q12 IVF@30/HR LOVENOX SQ Q12 IV PROTONIX Q12 IV SOLUMEDROL 20MG Q12HRS BACTRIM NG Q24 IV REGLAN Q6HRS : ICU STATUS PLAN: NON VIOLENT RESTRAINTS WEAN TOLERATED
--- NOTE | 2020-04-18 14:59 | NUR ---
INSURANCE CLINCALS/REVIEW FAXED TO [employer] T: [phone] #1 F: [phone] AND ALFRED [employer] WHE[employer]ER:JACQUELINE JAMES T: [phone] F: [phone]
--- NOTE | 2020-04-18 15:00 | NUR ---
NURSE NOTES: Pt. awake trying to communicate to the RN. Moving his right arm. But after few minutes went back to sleep. No s/sx of distress noted. No grimacing noted.
--- NOTE | 2020-04-18 16:55 | Cardiology Progress Note ---
Assessment/Plan Assessment/Plan Acute covid 19 pneumonia hypoxemia infiltrate bilat bacteremia hypernatremia / hyponatremia mild abn lfts tachy post intubation fever fungemia dvt upper ext now on 80 % fio2 , [address] fry discussing trach full sedated with fentanyl and versed not febrile now hypoxemia unlikely cardiac related tube feeding being tolerated echo reviewed last on 04/06 still shows normal lv function no valve pathology cxr still showing bilateral lower lobe infiltrates as of04/18 tele reviewed sinus remains critical now is on full dose anticoag due to dvt ue s/p diuresis of about 7 liter over 48 hour dcd 04/17 cr is stable bp fluctuating d/w rn labs seem stabel covid pcr negative , however considering that it took 3 tests to finally initially identify his covid infection i am not sure if we can trust Subjective Subjective per rn Pt. responding upon calling his name tried to open his eyes. Sedated. No s/sx of distress. Tolerating Fi O2 of 80% for 3 hours now. Sat at 93%. Will cont. to monitor. Objective Last 24 Hour Vital Signs Date Time Temp Pulse Resp B/P (MAP) Pulse Ox O2 Delivery O2 Flow Rate FiO2 04/18/20 16:48 18 111/60 Endotracheal Tube 80 04/18/20 16:00 103 04/18/20 16:00 Mechanical Ventilator 04/18/20 16:00 98.8 96 21 136/75 (95) 94 04/18/20 16:00 80 04/18/20 15:00 24 168/85 Endotracheal Tube 80 04/18/20 15:00 24 168/85 Endotracheal Tube 80 04/18/20 15:00 119 24 168/85 (112) 90 04/18/20 14:27 24 185/92 Endotracheal Tube 80 04/18/20 14:00 18 142/75 Endotracheal Tube 80 04/18/20 14:00 18 142/75 Endotracheal Tube 80 04/18/20 14:00 82 18 142/75 (97) 95 04/18/20 13:10 82 18 80 04/18/20 13:00 19 139/72 Endotracheal Tube 80 04/18/20 13:00 19 139/72 Endotracheal Tube 80 04/18/20 13:00 88 19 139/72 (94) 93 04/18/20 12:00 Mechanical Ventilator 04/18/20 12:00 80 04/18/20 12:00 100 04/18/20 12:00 22 146/70 Endotracheal Tube 80 04/18/20 12:00 22 146/70 Endotracheal Tube 80 04/18/20 12:00 98.9 99 22 146/70 (95) 87 04/18/20 11:00 25 161/74 Endotracheal Tube 80 04/18/20 11:00 25 161/74 Endotracheal Tube 80 04/18/20 11:00 113 25 161/74 (103) 91 04/18/20 10:00 78 18 133/75 (94) 96 04/18/20 10:00 80 04/18/20 10:00 18 133/75 Endotracheal Tube 80 04/18/20 10:00 18 133/75 Endotracheal Tube 80 04/18/20 09:00 18 113/65 Endotracheal Tube 80 04/18/20 09:00 18 113/65 Endotracheal Tube 80 04/18/20 09:00 75 18 113/65 (81) 99 04/18/20 08:00 100 04/18/20 08:00 Mechanical Ventilator 04/18/20 08:00 98.5 95 21 150/86 (107) 94 04/18/20 08:00 21 150/86 Endotracheal Tube 80 04/18/20 08:00 21 150/86 Endotracheal Tube 80 04/18/20 08:00 73 04/18/20 07:30 78 18 90 04/18/20 07:04 18 162/79 100 04/18/20 07:00 121 26 197/89 (125) 93 04/18/20 06:59 20 158/88 Endotracheal Tube 100 04/18/20 06:00 20 155/72 Endotracheal Tube 100 04/18/20 06:00 102 25 181/99 (126) 93 04/18/20 05:00 18 152/92 Endotracheal Tube 100 04/18/20 05:00 20 150/76 Endotracheal Tube 100 04/18/20 05:00 84 18 137/72 (93) 97 04/18/20 04:00 100 04/18/20 04:00 98.3 76 18 130/77 (94) 98 04/18/20 04:00 19 100/72 Endotracheal Tube 100 04/18/20 04:00 19 108/60 Endotracheal Tube 100 04/18/20 04:00 Mechanical Ventilator 04/18/20 04:00 74 04/18/20 03:35 75 18 90 04/18/20 03:00 18 103/68 Endotracheal Tube 100 04/18/20 03:00 20 112/65 Endotracheal Tube 100 04/18/20 03:00 68 18 118/69 (85) 100 04/18/20 02:00 20 107/65 Endotracheal Tube 100 04/18/20 02:00 20 102/73 Endotracheal Tube 100 04/18/20 02:00 70 18 123/74 (90) 99 04/18/20 01:00 72 18 128/77 (94) 100 04/18/20 01:00 18 117/67 Endotracheal Tube 100 04/18/20 01:00 18 120/81 Endotracheal Tube 100 04/18/20 00:00 93 04/18/20 00:00 Mechanical Ventilator 04/18/20 00:00 18 125/62 Endotracheal Tube 100 04/18/20 00:00 18 111/70 Endotracheal Tube 100 04/18/20 00:00 97.8 78 18 119/70 (86) 98 04/18/20 00:00 100 04/17/20 23:15 98 21 100 04/17/20 23:03 18 137/85 Endotracheal Tube 100 04/17/20 23:00 99 20 161/77 (105) 86 04/17/20 23:00 18 114/74 Endotracheal Tube 100 04/17/20 22:31 18 125/63 Endotracheal Tube 100 04/17/20 22:00 112 22 167/77 (107) 86 04/17/20 21:00 100 22 162/81 (108) 95 04/17/20 20:00 69 04/17/20 20:00 98.7 69 18 98/58 (71) 98 04/17/20 20:00 18 127/65 Endotracheal Tube 100 04/17/20 20:00 100 04/17/20 20:00 Mechanical Ventilator 04/17/20 19:25 68 18 90 04/17/20 19:15 68 18 100/60 (73) 98 04/17/20 19:00 18 104/64 Mechanical Ventilator 100 04/17/20 19:00 18 100/60 Mechanical Ventilator 100 04/17/20 19:00 70 18 100/60 (73) 98 04/17/20 18:00 74 18 90/54 (66) 97 04/17/20 18:00 18 99/57 Mechanical Ventilator 100 04/17/20 18:00 18 96/57 Mechanical Ventilator 100 04/17/20 17:00 83 18 105/52 (69) 96 04/17/20 17:00 18 118/69 Mechanical Ventilator 100 04/17/20 17:00 18 118/69 Mechanical Ventilator 100 Intake and Output 04/17/20 04/18/20 19:00 07:00 Intake Total 1787.000 ml 1172.0 ml Output Total 665 ml 600 ml Balance 1122.000 ml 572.0 ml Free Water 60 ml IV Total 1227.000 ml 572.0 ml Tube Feeding 500 ml 600 ml Output Urine Total 650 ml 600 ml Stool Total 15 ml # Bowel Movements 1 Laboratory Tests Test 04/18/20 03:05 White Blood Count 6.6 K/UL (4.8-10.8) Red Blood Count 3.22 M/UL (4.70-6.10) L Hemoglobin 9.2 G/DL (14.2-18.0) L Hematocrit 29.1 % (42.0-52.0) L Mean Corpuscular Volume 90 FL (80-99) Mean Corpuscular Hemoglobin 28.5 PG (27.0-31.0) Mean Corpuscular Hemoglobin Concent 31.6 G/DL (32.0-36.0) L Red Cell Distribution Width 17.4 % (11.6-14.8) H Platelet Count 233 K/UL (150-450) Mean Platelet Volume 7.1 FL (6.5-10.1) Neutrophils (%) (Auto) % (45.0-75.0) Lymphocytes (%) (Auto) % (20.0-45.0) Monocytes (%) (Auto) % (1.0-10.0) Eosinophils (%) (Auto) % (0.0-3.0) Basophils (%) (Auto) % (0.0-2.0) Differential Total Cells Counted 100 Neutrophils % (Manual) 87 % (45-75) H Lymphocytes % (Manual) 10 % (20-45) L Monocytes % (Manual) 3 % (1-10) Eosinophils % (Manual) 0 % (0-3) Basophils % (Manual) 0 % (0-2) Band Neutrophils 0 % (0-8) Platelet Estimate Adequate Platelet Morphology Normal Hypochromasia 1+ Anisocytosis 1+ Sodium Level 140 MMOL/L (136-145) Potassium Level 4.1 MMOL/L (3.5-5.1) Chloride Level 102 MMOL/L (98-107) Carbon Dioxide Level 38 MMOL/L (21-32) H Anion Gap 0 mmol/L (5-15) L Blood Urea Nitrogen 19 mg/dL (7-18) H Creatinine 0.5 MG/DL (0.55-1.30) L Estimat Glomerular Filtration Rate > 60 mL/min (>60) Glucose Level 155 MG/DL (74-106) H Calcium Level 8.7 MG/DL (8.5-10.1) Total Bilirubin 0.6 MG/DL (0.2-1.0) Aspartate Amino Transf (AST/SGOT) 23 U/L (15-37) Alanine Aminotransferase (ALT/SGPT) 115 U/L (12-78) H Alkaline Phosphatase 285 U/L (46-116) H Total Protein 5.3 G/DL (6.4-8.2) L Albumin 2.0 G/DL (3.4-5.0) L Globulin 3.3 g/dL Albumin/Globulin Ratio 0.6 (1.0-2.7) L Objective pt in covid 19 isoaltion with acute infection Manan Awan MD Apr 18, 2020 16:55
--- NOTE | 2020-04-18 17:17 | Surgery Progress Note ---
Surgery Progress Note Subjective Additional Comments ill appearing on support no n/v labs noted exam unchanged cont weaning Objective Last 24 Hour Vital Signs Date Time Temp Pulse Resp B/P (MAP) Pulse Ox O2 Delivery O2 Flow Rate FiO2 04/18/20 17:00 80 18 105/56 (72) 94 04/18/20 16:48 18 111/60 Endotracheal Tube 80 04/18/20 16:00 103 04/18/20 16:00 Mechanical Ventilator 04/18/20 16:00 98.8 96 21 136/75 (95) 94 04/18/20 16:00 21 136/75 Endotracheal Tube 80 04/18/20 16:00 80 04/18/20 15:00 24 168/85 Endotracheal Tube 80 04/18/20 15:00 24 168/85 Endotracheal Tube 80 04/18/20 15:00 119 24 168/85 (112) 90 04/18/20 14:27 24 185/92 Endotracheal Tube 80 04/18/20 14:00 18 142/75 Endotracheal Tube 80 04/18/20 14:00 18 142/75 Endotracheal Tube 80 04/18/20 14:00 82 18 142/75 (97) 95 04/18/20 13:10 82 18 80 04/18/20 13:00 19 139/72 Endotracheal Tube 80 04/18/20 13:00 19 139/72 Endotracheal Tube 80 04/18/20 13:00 88 19 139/72 (94) 93 04/18/20 12:00 Mechanical Ventilator 04/18/20 12:00 80 04/18/20 12:00 100 04/18/20 12:00 22 146/70 Endotracheal Tube 80 04/18/20 12:00 22 146/70 Endotracheal Tube 80 04/18/20 12:00 98.9 99 22 146/70 (95) 87 04/18/20 11:00 25 161/74 Endotracheal Tube 80 04/18/20 11:00 25 161/74 Endotracheal Tube 80 04/18/20 11:00 113 25 161/74 (103) 91 04/18/20 10:00 78 18 133/75 (94) 96 04/18/20 10:00 80 04/18/20 10:00 18 133/75 Endotracheal Tube 80 04/18/20 10:00 18 133/75 Endotracheal Tube 80 04/18/20 09:00 18 113/65 Endotracheal Tube 80 04/18/20 09:00 18 113/65 Endotracheal Tube 80 04/18/20 09:00 75 18 113/65 (81) 99 04/18/20 08:00 100 04/18/20 08:00 Mechanical Ventilator 04/18/20 08:00 98.5 95 21 150/86 (107) 94 04/18/20 08:00 21 150/86 Endotracheal Tube 80 04/18/20 08:00 21 150/86 Endotracheal Tube 80 04/18/20 08:00 73 04/18/20 07:30 78 18 90 04/18/20 07:04 18 162/79 100 04/18/20 07:00 121 26 197/89 (125) 93 04/18/20 06:59 20 158/88 Endotracheal Tube 100 04/18/20 06:00 20 155/72 Endotracheal Tube 100 04/18/20 06:00 102 25 181/99 (126) 93 04/18/20 05:00 18 152/92 Endotracheal Tube 100 04/18/20 05:00 20 150/76 Endotracheal Tube 100 04/18/20 05:00 84 18 137/72 (93) 97 04/18/20 04:00 100 04/18/20 04:00 98.3 76 18 130/77 (94) 98 04/18/20 04:00 19 100/72 Endotracheal Tube 100 04/18/20 04:00 19 108/60 Endotracheal Tube 100 04/18/20 04:00 Mechanical Ventilator 04/18/20 04:00 74 04/18/20 03:35 75 18 90 04/18/20 03:00 18 103/68 Endotracheal Tube 100 04/18/20 03:00 20 112/65 Endotracheal Tube 100 04/18/20 03:00 68 18 118/69 (85) 100 04/18/20 02:00 20 107/65 Endotracheal Tube 100 04/18/20 02:00 20 102/73 Endotracheal Tube 100 04/18/20 02:00 70 18 123/74 (90) 99 04/18/20 01:00 72 18 128/77 (94) 100 04/18/20 01:00 18 117/67 Endotracheal Tube 100 04/18/20 01:00 18 120/81 Endotracheal Tube 100 04/18/20 00:00 93 04/18/20 00:00 Mechanical Ventilator 04/18/20 00:00 18 125/62 Endotracheal Tube 100 04/18/20 00:00 18 111/70 Endotracheal Tube 100 04/18/20 00:00 97.8 78 18 119/70 (86) 98 04/18/20 00:00 100 04/17/20 23:15 98 21 100 04/17/20 23:03 18 137/85 Endotracheal Tube 100 04/17/20 23:00 99 20 161/77 (105) 86 04/17/20 23:00 18 114/74 Endotracheal Tube 100 04/17/20 22:31 18 125/63 Endotracheal Tube 100 04/17/20 22:00 112 22 167/77 (107) 86 04/17/20 21:00 100 22 162/81 (108) 95 04/17/20 20:00 69 04/17/20 20:00 98.7 69 18 98/58 (71) 98 04/17/20 20:00 18 127/65 Endotracheal Tube 100 04/17/20 20:00 100 04/17/20 20:00 Mechanical Ventilator 04/17/20 19:25 68 18 90 04/17/20 19:15 68 18 100/60 (73) 98 04/17/20 19:00 18 104/64 Mechanical Ventilator 100 04/17/20 19:00 18 100/60 Mechanical Ventilator 100 04/17/20 19:00 70 18 100/60 (73) 98 04/17/20 18:00 74 18 90/54 (66) 97 04/17/20 18:00 18 99/57 Mechanical Ventilator 100 04/17/20 18:00 18 96/57 Mechanical Ventilator 100 I&O Intake and Output 04/17/20 04/18/20 19:00 07:00 Intake Total 1787.000 ml 1172.0 ml Output Total 665 ml 600 ml Balance 1122.000 ml 572.0 ml Free Water 60 ml IV Total 1227.000 ml 572.0 ml Tube Feeding 500 ml 600 ml Output Urine Total 650 ml 600 ml Stool Total 15 ml # Bowel Movements 1 Dressing: saturated Cardiovascular: RSR Respiratory: decreased breath sounds Abdomen: soft, non-tender, present bowel sounds, non-distended Extremities: no tenderness, no cyanosis Laboratory Tests Test 04/18/20 03:05 White Blood Count 6.6 K/UL (4.8-10.8) Red Blood Count 3.22 M/UL (4.70-6.10) L Hemoglobin 9.2 G/DL (14.2-18.0) L Hematocrit 29.1 % (42.0-52.0) L Mean Corpuscular Volume 90 FL (80-99) Mean Corpuscular Hemoglobin 28.5 PG (27.0-31.0) Mean Corpuscular Hemoglobin Concent 31.6 G/DL (32.0-36.0) L Red Cell Distribution Width 17.4 % (11.6-14.8) H Platelet Count 233 K/UL (150-450) Mean Platelet Volume 7.1 FL (6.5-10.1) Neutrophils (%) (Auto) % (45.0-75.0) Lymphocytes (%) (Auto) % (20.0-45.0) Monocytes (%) (Auto) % (1.0-10.0) Eosinophils (%) (Auto) % (0.0-3.0) Basophils (%) (Auto) % (0.0-2.0) Differential Total Cells Counted 100 Neutrophils % (Manual) 87 % (45-75) H Lymphocytes % (Manual) 10 % (20-45) L Monocytes % (Manual) 3 % (1-10) Eosinophils % (Manual) 0 % (0-3) Basophils % (Manual) 0 % (0-2) Band Neutrophils 0 % (0-8) Platelet Estimate Adequate Platelet Morphology Normal Hypochromasia 1+ Anisocytosis 1+ Sodium Level 140 MMOL/L (136-145) Potassium Level 4.1 MMOL/L (3.5-5.1) Chloride Level 102 MMOL/L (98-107) Carbon Dioxide Level 38 MMOL/L (21-32) H Anion Gap 0 mmol/L (5-15) L Blood Urea Nitrogen 19 mg/dL (7-18) H Creatinine 0.5 MG/DL (0.55-1.30) L Estimat Glomerular Filtration Rate > 60 mL/min (>60) Glucose Level 155 MG/DL (74-106) H Calcium Level 8.7 MG/DL (8.5-10.1) Total Bilirubin 0.6 MG/DL (0.2-1.0) Aspartate Amino Transf (AST/SGOT) 23 U/L (15-37) Alanine Aminotransferase (ALT/SGPT) 115 U/L (12-78) H Alkaline Phosphatase 285 U/L (46-116) H Total Protein 5.3 G/DL (6.4-8.2) L Albumin 2.0 G/DL (3.4-5.0) L Globulin 3.3 g/dL Albumin/Globulin Ratio 0.6 (1.0-2.7) L Plan Problems: (1) Pneumonia (2) Staphylococcus aureus bacteremia (3) COVID-19 virus infection (4) Chest pain (5) Hypertension (6) Dehydration (7) Electrolyte imbalance (8) DMII (diabetes mellitus, type 2) (9) Protein malnutrition (10) Respiratory insufficiency Assessment & Plan: 64-year-old male with respiratory insufficiency intubated in an intensive care unit. Patient has been unable to safely wean off ventilatory support. Surgery called to evaluate for tracheostomy. After careful evaluation patient is a candidate for tracheostomy. In the meantime will obtain consent. If consent obtained will proceed with scheduling. Thank you for your participation's care will follow recommendations Booker Rausch Apr 18, 2020 17:17
[2020-04-18] MEDS: Bactrim-DS 1 tab ORAL SCH (17:53)
--- NOTE | 2020-04-18 17:56 | NUR ---
NURSE NOTES: Seen by Dr. Awan and updated him about plan for Trach and weaning to Fi O2 at 70% at present 80%. Will cont. to monitor.
--- NOTE | 2020-04-18 18:51 | NUR ---
NURSE NOTES: Pt. tolerating 70% Fi O2. Sat at 92%. No s/sx of distress. Will cont. to monitor.
--- NOTE | 2020-04-18 19:20 | NUR ---
NURSE NOTES: pt report received from Alivia Branch RN. pt status remains unchanged. pt is sedated neuro vick. pt is on cardiac specialist showing NSR, no abnormalities noted cardiac vick. pt is oral intubated, sating 95%O2, no acute abnormalities noted resp vick. pt bed is low, locked, armed, call light within reach, bed rails up times 3. will follow plan of care.
--- NOTE | 2020-04-18 19:20 | NUR ---
NURSE HAND-OFF REPORT: Latest Vital Signs: Temperature 98.8 , Pulse 70 , B/P 103 /58 , Respiratory Rate 18 , O2 SAT 97 , Endotracheal Tube, O2 Flow Rate . Vital Sign Comment: wnl EKG Rhythm: Sinus Rhythm Rhythm change?: N Notified?: Courtney Paige MD Response: Message left await call Latest Hassan Fall Score: 50 Fall Risk: High Risk Safety Measures: Call light Within Reach, Bed Alarm Zone 3, Side Rails Side Rails x3, Bed position Low and Locked. Fall Precautions: Yellow Socks Yellow Gown Door Sign Patient Fall Education Report given to Stephen Huizar RN.
[2020-04-18] MEDS: Dyna-Hex 2% Top Sol 2oz TOPIC SCH (20:35)
--- NOTE | 2020-04-18 21:30 | NUR ---
NURSE NOTES: PM meds passed. no change in condition.
--- NOTE | 2020-04-18 23:40 | NUR ---
NURSE NOTES: pts fentanyl still running 300MCG/ hr. pts versed still running 15mg/ hr. pt showing RASS of -2. vital signs stable.
[2020-04-19] VITALS (30 sets, daily range): BP systolic 96–203; BP diastolic 49–92
--- NOTE | 2020-04-19 01:01 | NUR ---
NURSE NOTES: pt sedated, resting in bed. vital signs stable.
[2020-04-19] MEDS: fentaNYL 2500mcg/NS 250ml 250 ML IV SCH ×3 (01:18→17:20)
--- NOTE | 2020-04-19 03:50 | NUR ---
NURSE NOTES: OGT replaced. KUB ordered to confirm new OGT placement.
[2020-04-19] MEDS: Metoclopramide 10mg/2ml Inj IVP SCH ×4 (03:55→21:04)
[2020-04-19] MEDS: Versed 100mg/NS 200ml 200 ML IV PRN ×4 (03:59→23:14)
[2020-04-19] MEDS: NovoLOG Insulin Flexpen SUBQ SCH ×4 (05:12→18:00)
[2020-04-19] MEDS: Piperacillin/Tazobactam 3.375 GM in D5W 110 ML IVPB SCH ×3 (05:13→21:06)
--- NOTE | 2020-04-19 05:27 | NUR ---
NURSE NOTES: pt AM meds passed. Pt blood sugar 123, pt asymptomatic. vital signs stable.
--- NOTE | 2020-04-19 06:51 | NUR ---
CASE MANAGEMENT:REVIEW 04/19/20 SI: COVID PNEUMONIA~INTUBATED 98.0 77 20 123/73 96% ON VENT SUPPORT W/90% FIO2 PEEP~5.0 NO LABS FOR TODAY IS: IV LASIX QD FENTANYL GTT VERSED GTT IV ZOSYN Q8HRS IV SOLUMEDROL 20MG Q12 IVF@30/HR LOVENOX SQ Q12 IV PROTONIX Q12 BACTRIM NG Q24 IV REGLAN Q6HRS : ICU STATUS PLAN: NON VIOLENT RESTRAINTS WEAN TOLERATED
--- NOTE | 2020-04-19 07:20 | NUR ---
NURSE HAND-OFF REPORT: Latest Vital Signs: Temperature 98.0 , Pulse 61 , B/P 98 /55 , Respiratory Rate 18 , O2 SAT 95 , Endotracheal Tube, O2 Flow Rate . Vital Sign Comment: stable with sedation. EKG Rhythm: Sinus Rhythm Rhythm change?: N Notified?: Courtney Paige MD Response: Message left await call Latest Hassan Fall Score: 50 Fall Risk: High Risk Safety Measures: Call light Within Reach, Bed Alarm Zone 3, Side Rails Side Rails x3, Bed position Low and Locked. Fall Precautions: Yellow Socks Yellow Gown Door Sign Patient Fall Education Report given to Beba sanchez RN.
--- NOTE | 2020-04-19 07:30 | NUR ---
NURSE NOTES: Report received from Stephen Agustin RN.Pt sedated orally intubated with ETT8.0 ,lip line24,AC18,TV750 Sxg148% Peep 5 ,no signs of resp distress no discomfort noted on SR on the monitor ,OGTclamped awaiting results of KUB for placement,Brownlee cath draining jeff colored urine,,Rectal tube to small liquid brown stools,skin warm and edematous,with ALBERT PICC line intact,on Fentanyl drip at 300 mcg /hr and Versed at 15 mg/hr ,SR up x2 hob elevated bed klock in lowest position will continue with plans of care
--- NOTE | 2020-04-19 08:18 | General Progress Note ---
Subjective ROS Limited/Unobtainable: No Allergies: Coded Allergies: No Known Allergies (Unverified , 02/05/20) Objective Last 24 Hour Vital Signs Date Time Temp Pulse Resp B/P (MAP) Pulse Ox O2 Delivery O2 Flow Rate FiO2 04/19/20 08:00 18 106/56 90 04/19/20 08:00 18 106/56 Mechanical Ventilator 90 04/19/20 07:40 18 95/53 Mechanical Ventilator 90 04/19/20 07:00 20 148/83 Endotracheal Tube 90 04/19/20 07:00 20 154/75 Endotracheal Tube 90 04/19/20 07:00 61 18 98/55 (69) 95 04/19/20 06:00 20 129/78 Mechanical Ventilator 90 04/19/20 06:00 20 145/74 Endotracheal Tube 90 04/19/20 06:00 77 18 123/73 (90) 96 04/19/20 05:00 83 18 138/72 (94) 94 04/19/20 05:00 19 145/82 Endotracheal Tube 90 04/19/20 05:00 19 136/78 Endotracheal Tube 90 04/19/20 04:00 80 04/19/20 04:00 64 04/19/20 04:00 19 128/70 Endotracheal Tube 90 04/19/20 04:00 20 124/71 Endotracheal Tube 90 04/19/20 04:00 Mechanical Ventilator 04/19/20 04:00 98.0 63 18 105/60 (75) 97 04/19/20 03:59 27 107/70 Mechanical Ventilator 90 04/19/20 03:33 64 18 85 04/19/20 03:00 65 18 115/63 (80) 93 04/19/20 03:00 19 127/70 Endotracheal Tube 90 04/19/20 03:00 20 130/78 Endotracheal Tube 90 04/19/20 02:00 66 18 113/63 (80) 99 04/19/20 02:00 19 129/85 Endotracheal Tube 90 04/19/20 02:00 20 135/74 Endotracheal Tube 90 04/19/20 01:18 19 108/72 Endotracheal Tube 90 04/19/20 01:00 19 118/81 Endotracheal Tube 90 04/19/20 01:00 19 124/65 Endotracheal Tube 90 04/19/20 01:00 67 18 106/62 (77) 98 04/19/20 00:00 81 04/19/20 00:00 19 140/83 Endotracheal Tube 90 04/19/20 00:00 20 142/76 Endotracheal Tube 90 04/19/20 00:00 80 04/19/20 00:00 Mechanical Ventilator 04/19/20 00:00 98.5 73 18 112/62 (79) 96 04/18/20 23:19 85 18 85 04/18/20 23:00 96 22 152/75 (100) 91 04/18/20 23:00 20 132/65 Endotracheal Tube 90 04/18/20 23:00 20 154/71 Endotracheal Tube 90 04/18/20 22:00 20 182/78 Endotracheal Tube 90 04/18/20 22:00 18 178/85 Endotracheal Tube 100 04/18/20 22:00 101 24 152/72 (98) 88 04/18/20 21:39 20 180/75 Endotracheal Tube 100 04/18/20 21:00 93 18 166/75 (105) 83 04/18/20 21:00 20 168/82 Endotracheal Tube 90 04/18/20 21:00 20 172/69 Endotracheal Tube 90 04/18/20 20:00 75 04/18/20 20:00 80 04/18/20 20:00 98.3 81 11 136/76 (96) 89 04/18/20 20:00 19 180/75 Endotracheal Tube 90 04/18/20 20:00 19 162/74 Endotracheal Tube 90 04/18/20 20:00 Mechanical Ventilator 04/18/20 19:28 69 18 70 04/18/20 19:00 19 158/70 Endotracheal Tube 90 04/18/20 19:00 20 152/80 Endotracheal Tube 90 04/18/20 19:00 74 18 112/61 (78) 92 04/18/20 18:00 70 18 103/58 (73) 97 04/18/20 18:00 18 103/58 Endotracheal Tube 70 04/18/20 18:00 18 103/58 Endotracheal Tube 70 04/18/20 17:00 18 105/56 Endotracheal Tube 70 04/18/20 17:00 80 18 105/56 (72) 94 04/18/20 16:48 18 111/60 Endotracheal Tube 80 04/18/20 16:00 103 04/18/20 16:00 Mechanical Ventilator 04/18/20 16:00 98.8 96 21 136/75 (95) 94 04/18/20 16:00 21 136/75 Endotracheal Tube 80 04/18/20 16:00 80 04/18/20 15:00 24 168/85 Endotracheal Tube 80 04/18/20 15:00 24 168/85 Endotracheal Tube 80 04/18/20 15:00 119 24 168/85 (112) 90 04/18/20 14:27 24 185/92 Endotracheal Tube 80 04/18/20 14:00 18 142/75 Endotracheal Tube 80 04/18/20 14:00 18 142/75 Endotracheal Tube 80 04/18/20 14:00 82 18 142/75 (97) 95 04/18/20 13:10 82 18 80 04/18/20 13:00 19 139/72 Endotracheal Tube 80 04/18/20 13:00 19 139/72 Endotracheal Tube 80 04/18/20 13:00 88 19 139/72 (94) 93 04/18/20 12:00 Mechanical Ventilator 04/18/20 12:00 80 04/18/20 12:00 100 04/18/20 12:00 22 146/70 Endotracheal Tube 80 04/18/20 12:00 22 146/70 Endotracheal Tube 80 04/18/20 12:00 98.9 99 22 146/70 (95) 87 04/18/20 11:00 25 161/74 Endotracheal Tube 80 04/18/20 11:00 25 161/74 Endotracheal Tube 80 04/18/20 11:00 113 25 161/74 (103) 91 04/18/20 10:00 78 18 133/75 (94) 96 04/18/20 10:00 80 04/18/20 10:00 18 133/75 Endotracheal Tube 80 04/18/20 10:00 18 133/75 Endotracheal Tube 80 04/18/20 09:00 18 113/65 Endotracheal Tube 80 04/18/20 09:00 18 113/65 Endotracheal Tube 80 04/18/20 09:00 75 18 113/65 (81) 99 Intake and Output 04/18/20 04/19/20 19:00 07:00 Intake Total 1520 ml 1276.5 ml Output Total 650 ml 550 ml Balance 870 ml 726.5 ml Free Water 250 ml IV Total 670 ml 826.5 ml Tube Feeding 600 ml 450 ml Output Urine Total 650 ml 550 ml Height (Feet): 5 Height (Inches): 10.00 Weight (Pounds): 240 General Appearance: no apparent distress EENT: normal ENT inspection Neck: supple Cardiovascular: tachycardia Respiratory/Chest: decreased breath sounds Abdomen: hypoactive bowel sounds Extremities: non-tender Assessment/Plan Status: not improved, unchanged Assessment/Plan: hep c + but neg RNA OGTF reglan 10 mg repeat labs fu LFTS>>>improving worsening resp status will fu Da Quintero MD Apr 19, 2020 08:18
--- NOTE | 2020-04-19 08:51 | NUR ---
RADIOLOGY DEPT., ABDOMEN FOR NEW N/GT COMPLETED.-P.DYE
[2020-04-19] MEDS ORDERED: fentaNYL 2500mcg/NS 250ml 250 ML IV SCH (09:00)
[2020-04-19] MEDS: Solu-MEDROL 40mg Inj IVP SCH ×2 (09:03→21:04)
[2020-04-19] MEDS: Enoxaparin 80mg Inj SUBQ SCH ×2 (09:04→21:05)
[2020-04-19] MEDS: Pantoprazole Inj IVP SCH ×2 (09:08→21:04)
--- NOTE | 2020-04-19 09:09 | Diagnostic Imaging Report ---
Indication: Post nasogastric tube placement Technique: Supine view of the abdomen Comparison: 03/31/2020 Findings: There is a nasogastric tube present, tip projected at the level of the gastric fundus body junction, in good position. Also noted in the included lower chest is a PICC. The bowel gas pattern is unremarkable. Impression: Satisfactory nasogastric tube placement. ICU nurse notified at the time of interpretation
--- NOTE | 2020-04-19 09:53 | NUR ---
RD ASSESSMENT & RECOMMENDATIONS SEE CARE ACTIVITY FOR COMPLETE ASSESSMENT DAILY ESTIMATED NEEDS: Needs based on Critical care, wound 81kg abw 22-28 kcals/kg 0679-6261 total kcals 1.25-1.5 g protein/kg 101-122 g total protein 25-30 mL/kg 8903-6990 total fluid mLs NUTRITION DIAGNOSIS: * Inadequate oral intake R/T clinical and respiratory status as evidenced by COVID-19 ++, on continuous BIPAP, prolonged meal refusals, pt is now on TPN, pt is now orally intubated (03/28), now on OGT feeds. * Decreased sodium and fat needs r/t HTN and obesity as evidenced by pt w/ cardiac history, elev BP (159/98-> now improved, on BP meds and diuretics), BMI >30, obese per guidelines. (INACTIVE) CURRENT TF: NOW ORDERED-> Glucerna 1.5 goal of 50 + Prosource BID ENTERAL NUTRITION RECOMMENDATIONS: Glucerna 1.5 @ 50ml/hr x 24 hrs + Prosource 1pkt BID to provide 1200ml, 1800kcal, 99g prot, 926ml free water * Maintain current TF @ goal as tolerated * Con't Prosource 1pkt BID (additional 22g prot) to better meet est prot needs. TPN Comment: Now off TPN, on OGT feeds. ADDITIONAL RECOMMENDATIONS: 1) Maintain calibrated bedscale wts 2) Obtain HgA1C for eval 3) Pt now w/ rectal tube-> pt on Lactulose TID, continue DC Lactulose 4) Off tpn, LFT's trending down. 5) Monitor lytes, replete as needed (K low, BUN up) 6) Monitor BGs- improved 7) Monitor for propofol resumed, now off
--- NOTE | 2020-04-19 09:55 | NUR ---
NURSE NOTES: Pt desaturated on low 80's Fioo2 increased by RT to 100%,Dr Mata at bedside,updated re pt's status.
--- NOTE | 2020-04-19 10:00 | NUR ---
NURSE NOTES: Oral care done,ETT suctioned PRN,Pulled up and repositioned for comfort.
--- NOTE | 2020-04-19 10:24 | Pulmonology Progress Note ---
Subjective ROS Limited/Unobtainable: No Interval Events: Intubated 03/28/20 Constitutional: Reports: other HEENT: Repors: no symptoms Respiratory: Reports: dry cough, shortness of breath Cardiovascular: Reports: no symptoms Gastrointestinal/Abdominal: Reports: diarrhea Psychiatric: Reports: other Skin: Denies: rash Musculoskeletal: Reports: other Allergies: Coded Allergies: No Known Allergies (Unverified , 02/05/20) Objective Last 24 Hour Vital Signs Date Time Temp Pulse Resp B/P (MAP) Pulse Ox O2 Delivery O2 Flow Rate FiO2 04/19/20 10:00 19 149/87 Mechanical Ventilator 100 04/19/20 10:00 19 149/87 Mechanical Ventilator 100 04/19/20 09:00 60 18 99/57 (71) 94 04/19/20 09:00 18 99/57 Mechanical Ventilator 80 04/19/20 09:00 18 99/57 Mechanical Ventilator 90 04/19/20 08:00 60 04/19/20 08:00 98.7 61 18 99/56 (70) 93 04/19/20 08:00 Mechanical Ventilator 04/19/20 08:00 80 04/19/20 08:00 18 106/56 90 04/19/20 08:00 18 106/56 Mechanical Ventilator 90 04/19/20 07:40 18 95/53 Mechanical Ventilator 90 04/19/20 07:00 20 148/83 Endotracheal Tube 90 04/19/20 07:00 20 154/75 Endotracheal Tube 90 04/19/20 07:00 61 18 98/55 (69) 95 04/19/20 06:00 20 129/78 Mechanical Ventilator 90 04/19/20 06:00 20 145/74 Endotracheal Tube 90 04/19/20 06:00 77 18 123/73 (90) 96 04/19/20 05:00 83 18 138/72 (94) 94 04/19/20 05:00 19 145/82 Endotracheal Tube 90 04/19/20 05:00 19 136/78 Endotracheal Tube 90 04/19/20 04:00 80 04/19/20 04:00 64 04/19/20 04:00 19 128/70 Endotracheal Tube 90 04/19/20 04:00 20 124/71 Endotracheal Tube 90 04/19/20 04:00 Mechanical Ventilator 04/19/20 04:00 98.0 63 18 105/60 (75) 97 04/19/20 03:59 27 107/70 Mechanical Ventilator 90 04/19/20 03:33 64 18 85 04/19/20 03:00 65 18 115/63 (80) 93 04/19/20 03:00 19 127/70 Endotracheal Tube 90 04/19/20 03:00 20 130/78 Endotracheal Tube 90 04/19/20 02:00 66 18 113/63 (80) 99 04/19/20 02:00 19 129/85 Endotracheal Tube 90 04/19/20 02:00 20 135/74 Endotracheal Tube 90 04/19/20 01:18 19 108/72 Endotracheal Tube 90 04/19/20 01:00 19 118/81 Endotracheal Tube 90 04/19/20 01:00 19 124/65 Endotracheal Tube 90 04/19/20 01:00 67 18 106/62 (77) 98 04/19/20 00:00 81 04/19/20 00:00 19 140/83 Endotracheal Tube 90 04/19/20 00:00 20 142/76 Endotracheal Tube 90 04/19/20 00:00 80 04/19/20 00:00 Mechanical Ventilator 04/19/20 00:00 98.5 73 18 112/62 (79) 96 04/18/20 23:19 85 18 85 04/18/20 23:00 96 22 152/75 (100) 91 04/18/20 23:00 20 132/65 Endotracheal Tube 90 04/18/20 23:00 20 154/71 Endotracheal Tube 90 04/18/20 22:00 20 182/78 Endotracheal Tube 90 04/18/20 22:00 18 178/85 Endotracheal Tube 100 04/18/20 22:00 101 24 152/72 (98) 88 04/18/20 21:39 20 180/75 Endotracheal Tube 100 04/18/20 21:00 93 18 166/75 (105) 83 04/18/20 21:00 20 168/82 Endotracheal Tube 90 04/18/20 21:00 20 172/69 Endotracheal Tube 90 04/18/20 20:00 75 04/18/20 20:00 80 04/18/20 20:00 98.3 81 11 136/76 (96) 89 04/18/20 20:00 19 180/75 Endotracheal Tube 90 04/18/20 20:00 19 162/74 Endotracheal Tube 90 04/18/20 20:00 Mechanical Ventilator 04/18/20 19:28 69 18 70 04/18/20 19:00 19 158/70 Endotracheal Tube 90 04/18/20 19:00 20 152/80 Endotracheal Tube 90 04/18/20 19:00 74 18 112/61 (78) 92 04/18/20 18:00 70 18 103/58 (73) 97 04/18/20 18:00 18 103/58 Endotracheal Tube 70 04/18/20 18:00 18 103/58 Endotracheal Tube 70 04/18/20 17:00 18 105/56 Endotracheal Tube 70 04/18/20 17:00 80 18 105/56 (72) 94 04/18/20 16:48 18 111/60 Endotracheal Tube 80 04/18/20 16:00 103 04/18/20 16:00 Mechanical Ventilator 04/18/20 16:00 98.8 96 21 136/75 (95) 94 04/18/20 16:00 21 136/75 Endotracheal Tube 80 04/18/20 16:00 80 04/18/20 15:00 24 168/85 Endotracheal Tube 80 04/18/20 15:00 24 168/85 Endotracheal Tube 80 04/18/20 15:00 119 24 168/85 (112) 90 04/18/20 14:27 24 185/92 Endotracheal Tube 80 04/18/20 14:00 18 142/75 Endotracheal Tube 80 04/18/20 14:00 18 142/75 Endotracheal Tube 80 04/18/20 14:00 82 18 142/75 (97) 95 04/18/20 13:10 82 18 80 04/18/20 13:00 19 139/72 Endotracheal Tube 80 04/18/20 13:00 19 139/72 Endotracheal Tube 80 04/18/20 13:00 88 19 139/72 (94) 93 04/18/20 12:00 Mechanical Ventilator 04/18/20 12:00 80 04/18/20 12:00 100 04/18/20 12:00 22 146/70 Endotracheal Tube 80 04/18/20 12:00 22 146/70 Endotracheal Tube 80 04/18/20 12:00 98.9 99 22 146/70 (95) 87 04/18/20 11:00 25 161/74 Endotracheal Tube 80 04/18/20 11:00 25 161/74 Endotracheal Tube 80 04/18/20 11:00 113 25 161/74 (103) 91 Intake and Output 04/18/20 04/19/20 19:00 07:00 Intake Total 1520 ml 1276.5 ml Output Total 650 ml 550 ml Balance 870 ml 726.5 ml Free Water 250 ml IV Total 670 ml 826.5 ml Tube Feeding 600 ml 450 ml Output Urine Total 650 ml 550 ml General Appearance: WD/WN, no acute distress HEENT: normocephalic, atraumatic Respiratory: chest wall non-tender Cardiovascular: normal rate, regular rhythm Abdomen: normal bowel sounds, soft, non tender, other - obese Current Medications Medications (Trade) Dose Ordered Sig/Dennis Route PRN Reason Start Time Stop Time Status Last Admin Dose Admin Acetaminophen (Tylenol) 650 mg Q4H PRN ORAL Temp >100.5 04/13/20 00:30 05/13/20 00:29 04/13/20 01:30 Bisacodyl (Dulcolax) 10 mg Q12H PRN RECTAL Constipation 03/18/20 16:45 06/16/20 16:44 Chlorhexidine Gluconate (Marlen-Hex 2%) 1 applic DAILY@2000 TOPIC 03/30/20 20:00 06/28/20 19:59 04/18/20 20:35 Dextrose (Dextrose 50%) 25 ml Q30M PRN IV Hypoglycemia 03/29/20 20:45 06/27/20 20:44 Dextrose (Dextrose 50%) 50 ml Q30M PRN IV Hypoglycemia 03/29/20 20:45 06/27/20 20:44 Enoxaparin Sodium (Lovenox) 80 mg EVERY 12 HOURS SUBQ 04/06/20 21:00 07/05/20 20:59 04/19/20 09:04 Fentanyl Citrate 250 ml @ 1 mls/hr Q24H IV 04/18/20 04:00 04/21/20 09:00 04/19/20 07:40 Hydralazine HCl (Apresoline) 10 mg Q4H PRN IV For High Blood Pressure 03/30/20 12:15 06/28/20 12:14 04/14/20 22:45 Insulin Aspart (NovoLOG) Q6HR SUBQ 03/30/20 00:00 06/28/20 00:00 04/18/20 18:11 Labetalol HCl (Normodyne) 10 mg Q4H PRN IV sbp greater tahtn 160 03/28/20 17:30 04/27/20 17:29 Methylprednisolone Sodium Succinate (Solu-MEDROL) 20 mg Q12HR IVP 04/12/20 21:00 06/20/20 20:59 04/19/20 09:03 Metoclopramide HCl (Reglan) 10 mg Q6H IVP 03/30/20 15:00 04/29/20 14:59 04/19/20 09:03 Midazolam HCl 200 ml @ 0 mls/hr Q24H PRN IV Agitation 04/17/20 22:30 04/24/20 22:29 04/19/20 03:59 Pantoprazole (Protonix) 40 mg EVERY 12 HOURS IVP 04/01/20 21:00 05/01/20 20:59 04/19/20 09:08 Piperacillin Sod/ Tazobactam Sod 3.375 gm/Dextrose 110 ml @ 27.5 mls/hr EVERY 8 HOURS IVPB 04/17/20 22:00 04/21/20 23:59 04/19/20 05:13 Trimethoprim/ Sulfamethoxazole (Bactrim-DS) 1 tab Q24H ORAL 03/29/20 17:00 05/10/20 16:59 04/18/20 17:53 Assessment/Plan Assessment/Plan Assessment/Plan 1.COVID-19 pneumonia. - Completed specific therapies - On solumedrol 2. DVT ppx - on lovenox 3. Hypertension - no longer on meds - Not requiring pressors 4. Leukocytosis; - ID following - On abx - Budding yeast on blood CS 5. Elevated LFT - positive Hep C; treated in the past with IF 6. Respiratory failure -Intubated 03/28/20 -Family aware - Prognosis guarded - Vt 750; rate 18 -On sedation 7. Discussed with cardiology -No evidence for cardiac dysfunction or PE -tachycardic; will increase sedation 8. AMS -back on sedation - has apparent left arm paresis - Will consider CT brain when more stable S/p new PICC line On abx Slowly improving oxygenation Noted left upper extremity swelling. Has DVT; on full dose Lovenox Continue sedation, DC propofol given high triglycerides. Continue fentanyl and Versed. Saturations plummeted 04/12/20 when patient became agitated Now fully sedated on 80->100% FiO2 ; PEEP 5 Intubated now for 2-3 weeks Discussed tracheostomy with surgery Will decrease diuresis; had diuresed neg 4 L last 48 hours CXR shows fine interstitial edema John Mata MD Apr 19, 2020 10:24
--- NOTE | 2020-04-19 11:54 | NUR ---
INSURANCE CLINCALS/REVIEW FAXED TO [employer] T: [phone] #1 F: [phone] AND [employer] MANAGER ONCOLOGY:JACQUELINE JAMES T: [phone] F: [phone]
--- NOTE | 2020-04-19 12:44 | Surgery Progress Note ---
Surgery Progress Note Subjective Additional Comments weaning vent no n/v Objective Last 24 Hour Vital Signs Date Time Temp Pulse Resp B/P (MAP) Pulse Ox O2 Delivery O2 Flow Rate FiO2 04/19/20 12:05 100 04/19/20 12:04 98.4 92 24 148/92 (110) 96 04/19/20 12:00 Mechanical Ventilator 04/19/20 11:00 82 24 146/79 (101) 91 04/19/20 11:00 19 146/79 Mechanical Ventilator 100 04/19/20 11:00 19 146/79 Mechanical Ventilator 100 04/19/20 10:57 18 156/87 Mechanical Ventilator 100 04/19/20 10:00 81 18 149/87 (107) 94 04/19/20 10:00 19 149/87 Mechanical Ventilator 100 04/19/20 10:00 19 149/87 Mechanical Ventilator 100 04/19/20 09:00 60 18 99/57 (71) 94 04/19/20 09:00 18 99/57 Mechanical Ventilator 80 04/19/20 09:00 18 99/57 Mechanical Ventilator 90 04/19/20 08:00 60 04/19/20 08:00 98.7 61 18 99/56 (70) 93 04/19/20 08:00 Mechanical Ventilator 04/19/20 08:00 80 04/19/20 08:00 18 106/56 90 04/19/20 08:00 18 106/56 Mechanical Ventilator 90 04/19/20 07:40 18 95/53 Mechanical Ventilator 90 04/19/20 07:00 20 148/83 Endotracheal Tube 90 04/19/20 07:00 20 154/75 Endotracheal Tube 90 04/19/20 07:00 61 18 98/55 (69) 95 04/19/20 06:00 20 129/78 Mechanical Ventilator 90 04/19/20 06:00 20 145/74 Endotracheal Tube 90 04/19/20 06:00 77 18 123/73 (90) 96 04/19/20 05:00 83 18 138/72 (94) 94 04/19/20 05:00 19 145/82 Endotracheal Tube 90 04/19/20 05:00 19 136/78 Endotracheal Tube 90 04/19/20 04:00 80 04/19/20 04:00 64 04/19/20 04:00 19 128/70 Endotracheal Tube 90 04/19/20 04:00 20 124/71 Endotracheal Tube 90 04/19/20 04:00 Mechanical Ventilator 04/19/20 04:00 98.0 63 18 105/60 (75) 97 04/19/20 03:59 27 107/70 Mechanical Ventilator 90 04/19/20 03:33 64 18 85 04/19/20 03:00 65 18 115/63 (80) 93 04/19/20 03:00 19 127/70 Endotracheal Tube 90 04/19/20 03:00 20 130/78 Endotracheal Tube 90 04/19/20 02:00 66 18 113/63 (80) 99 04/19/20 02:00 19 129/85 Endotracheal Tube 90 04/19/20 02:00 20 135/74 Endotracheal Tube 90 04/19/20 01:18 19 108/72 Endotracheal Tube 90 04/19/20 01:00 19 118/81 Endotracheal Tube 90 04/19/20 01:00 19 124/65 Endotracheal Tube 90 04/19/20 01:00 67 18 106/62 (77) 98 04/19/20 00:00 81 04/19/20 00:00 19 140/83 Endotracheal Tube 90 04/19/20 00:00 20 142/76 Endotracheal Tube 90 04/19/20 00:00 80 04/19/20 00:00 Mechanical Ventilator 04/19/20 00:00 98.5 73 18 112/62 (79) 96 04/18/20 23:19 85 18 85 04/18/20 23:00 96 22 152/75 (100) 91 04/18/20 23:00 20 132/65 Endotracheal Tube 90 04/18/20 23:00 20 154/71 Endotracheal Tube 90 04/18/20 22:00 20 182/78 Endotracheal Tube 90 04/18/20 22:00 18 178/85 Endotracheal Tube 100 04/18/20 22:00 101 24 152/72 (98) 88 04/18/20 21:39 20 180/75 Endotracheal Tube 100 04/18/20 21:00 93 18 166/75 (105) 83 04/18/20 21:00 20 168/82 Endotracheal Tube 90 04/18/20 21:00 20 172/69 Endotracheal Tube 90 04/18/20 20:00 75 04/18/20 20:00 80 04/18/20 20:00 98.3 81 11 136/76 (96) 89 04/18/20 20:00 19 180/75 Endotracheal Tube 90 04/18/20 20:00 19 162/74 Endotracheal Tube 90 04/18/20 20:00 Mechanical Ventilator 04/18/20 19:28 69 18 70 04/18/20 19:00 19 158/70 Endotracheal Tube 90 04/18/20 19:00 20 152/80 Endotracheal Tube 90 04/18/20 19:00 74 18 112/61 (78) 92 04/18/20 18:00 70 18 103/58 (73) 97 04/18/20 18:00 18 103/58 Endotracheal Tube 70 04/18/20 18:00 18 103/58 Endotracheal Tube 70 04/18/20 17:00 18 105/56 Endotracheal Tube 70 04/18/20 17:00 80 18 105/56 (72) 94 04/18/20 16:48 18 111/60 Endotracheal Tube 80 04/18/20 16:00 103 04/18/20 16:00 Mechanical Ventilator 04/18/20 16:00 98.8 96 21 136/75 (95) 94 04/18/20 16:00 21 136/75 Endotracheal Tube 80 04/18/20 16:00 80 04/18/20 15:00 24 168/85 Endotracheal Tube 80 04/18/20 15:00 24 168/85 Endotracheal Tube 80 04/18/20 15:00 119 24 168/85 (112) 90 04/18/20 14:27 24 185/92 Endotracheal Tube 80 04/18/20 14:00 18 142/75 Endotracheal Tube 80 04/18/20 14:00 18 142/75 Endotracheal Tube 80 04/18/20 14:00 82 18 142/75 (97) 95 04/18/20 13:10 82 18 80 04/18/20 13:00 19 139/72 Endotracheal Tube 80 04/18/20 13:00 19 139/72 Endotracheal Tube 80 04/18/20 13:00 88 19 139/72 (94) 93 I&O Intake and Output 04/18/20 04/19/20 19:00 07:00 Intake Total 1520 ml 1276.5 ml Output Total 650 ml 550 ml Balance 870 ml 726.5 ml Free Water 250 ml IV Total 670 ml 826.5 ml Tube Feeding 600 ml 450 ml Output Urine Total 650 ml 550 ml Cardiovascular: RSR Respiratory: decreased breath sounds Abdomen: soft, non-tender, present bowel sounds Extremities: no tenderness, no cyanosis Plan Problems: (1) Pneumonia (2) Staphylococcus aureus bacteremia (3) COVID-19 virus infection (4) Chest pain (5) Hypertension (6) Dehydration (7) Electrolyte imbalance (8) DMII (diabetes mellitus, type 2) (9) Protein malnutrition (10) Respiratory insufficiency Assessment & Plan: 64-year-old male with respiratory insufficiency intubated in an intensive care unit. Patient has been unable to safely wean off ventilatory support. Surgery called to evaluate for tracheostomy. After careful evaluation patient is a candidate for tracheostomy. In the meantime will obtain consent. If consent obtained will proceed with scheduling. Thank you for your participation's care will follow recommendations Booker Rausch Apr 19, 2020 12:44
--- NOTE | 2020-04-19 12:45 | NUR ---
NURSE NOTES: Pt with elevated BP 194/90 Hydralazine 10 mg iv given, pt restless,awake,,will increase sedation Versed
--- NOTE | 2020-04-19 13:28 | Nephrology Progress Note ---
Assessment/Plan Problem List: (1) Dehydration (2) Electrolyte imbalance (3) COVID-19 virus infection (4) Pneumonia (5) DMII (diabetes mellitus, type 2) (6) Protein malnutrition Assessment Azotemia, hypernatremia Hypoalbuminemia Staff Otilia bacteremia COVID-19 isolation, pneumonia, bilateral infiltrate Hypertension Diabetes mellitus History of smoking Plan April 19: No labs drawn today. Remains full code on FiO2 of 100%. Continue per consultants. April 18: Status quo. Labs reviewed. Renal parameters stable. April 17: Status quo. Intubated on ventilator. Full code. Labs reviewed. Electrolytes and renal parameters stable. Continue per consultants. April 16: Girlfriend in the room. Patient awake. Intubated. Full code. Labs reviewed. Abnormal electrolyte addressed. Continue per consultants. April 15: Labs reviewed. Electrolytes and renal parameters stable. Patient full code. Continues to be intubated on ventilator. April 14: Status quo. Labs reviewed. Remains intubated on ventilator. Full code. Continue per consultants. April 13: Status quo. Labs reviewed. Renal parameters electrolytes stable. Continue per current treatment plan. April 12: On higher FiO2. Will resume Lasix daily. Continue to monitor electrolytes and renal parameters. Per consultants. April 11: FiO2 went up to 85%. Renal parameters and electrolytes reasonably well-maintained. Will monitor serum potassium. Will give IV Lasix. April 10: Status quo. Labs reviewed. Remains intubated on ventilator with FiO2 of 65%. Remains full code. Stable from renal standpoint to view. Repeat vitamin D level on April 08 pending April 09: Status quo. Labs reviewed. Stable from renal standpoint of view. Continue per consultants. April 08: Discussed with RN. Labs reviewed. Clinically improving. Requires lower PEEP. Continue per pulmonary. Continue to monitor renal parameters. April 07: Remains full code and on ventilator. Labs reviewed. Renal parameters and electrolytes stable. Continue per consultants. Blood pressure marginally improved. April 06: Full code. On ventilator. Blood pressure 80-90 systolic. IV Lasix discontinued. Free water through tube feeding ordered. Continue to monitor electrolytes and serum sodium. Down on fentanyl as possible. Discussed with PRIYANKA Brown. Clonidine patch discontinued. April 05: Status quo. Remains full code. Remains intubated. Labs reviewed. Renal parameters stable. Serum sodium 150 unchanged. Continue per consultants. April 04: Remains intubated and on ventilator. Remains full code. Labs r eviewed. Serum sodium 150 unchanged. Renal parameters stable. Continue per ID and pulmonary. April 03: Intubated. On ventilator. Full code. Labs reviewed. Serum sodium 150 unchanged. Continue to monitor renal parameters. Continue per pulmonary a nd ID. April 02: Full code. On ventilator. Discussed with RN. Serum sodium slightly higher. Will cut down on IV Lasix. Continue per consultants. Continue to monitor renal parameters and electrolytes. April 01: Full code. Remains on ventilator. Labs reviewed. Stable from renal standpoint of view. Continue per consultants. March 31: Full code . Remains intubated on ventilator. Labs reviewed. Patient appears toxic. Discussed with RN. Maintenance IV discontinued. Medication list reviewed. Blood pressure medication stopped due to low blood pressure. Levemir insulin stopped. Continue monitor blood sugar and sliding scale insulin. March 30: Full code. On ventilator. Labs reviewed. Clonidine patch dose increased. Lasix increased. 3% saline 1 time ordered. Continue to monitor electrolytes and renal parameters. March 29: Remains full code. On mechanical ventilation. On tube feeding. Will DC TPN. Will start on maintenance IV fluid. Continue to monitor renal parameters. March 28: On BiPAP. Full code. On TPN. Labs reviewed. Discussed with pharmacy. Continue as is. Watch serum potassium. March 27: Remains on BiPAP. No chemistry panel done today. Full code. On TPN. Will check lab tomorrow. March 26: Remains on BiPAP. Remains on TPN. Labs reviewed. Electrolytes and chemistries within normal limits. Continue as is. March 25: Remains on TPN. Labs reviewed. Discussed with pharmacy. Change IV Protonix to p.o. Continue 3% saline infusion with Lasix. Patient full code. March 24: Continue to be on TPN. Labs are reviewed. Aim to collect electrolytes. Discussed with pharmacy. Continue current consultants. March 23: Continues to be on TPN. Labs reviewed. Electrolytes and chemistries all acceptable. Discussed with pharmacy. Continue current management. March 22: On TPN. Labs reviewed. Low sodium noted. 3% saline to be continued. Continue to monitor electrolytes. Discussed with pharmacy. March 21: On TPN. Labs reviewed. Continue 3% saline and Lasix for mild hyponatremia. Continue TPN as these. Discussed with pharmacy. March 20: Remains on TPN. Labs reviewed. Serum sodium higher on IV Lasix and 3% saline infusion. Continue TPN as is. Continue to monitor renal parameters and electrolytes. Discussed with Dr. Mata March 19: Remains on TPN. Labs reviewed. Serum sodium 128. Will give 3% saline with IV Lasix. Continue to monitor electrolytes. No change in TPN composition. Discussed with pharmacy. March 18: Remains on TPN. Labs reviewed. Discussed with pharmacist. Will give 3 doses of IV Lasix 20 mg every 8 hours. Continue to monitor serum sodium electrolytes uric acid. White blood cells down. Continue per consultants. March 17: On TPN. Labs reviewed. Discussed with pharmacist. Sodium content increase. Continue to monitor CMP. Patient continues to have leukocytosis. March 16: On TPN. Labs reviewed. Discussed with pharmacist. Appropriate changes made. Continue to monitor electrolytes. March 15: Remains on TPN. Labs reviewed. Discussed with pharmacist. Continue per current management. March 14: Remains on TPN. Labs reviewed, stable. Vitamin D level low, replacement ordered. Continue to monitor electrolytes and renal parameters. March 13: Patient remains on TPN. Discussed with pharmacist. TPN's sodium content adjusted. Labs reviewed. Continue to monitor electrolytes. Blood pressure remains stable. Continue per consultants. March 12: Patient on TPN. Labs reviewed. CPK remains elevated. Abnormal electrolytes and high blood sugar discussed with pharmacist and TPN adjusted. Continue to monitor labs. Oral Protonix added. Ibuprofen discontinued. Can continue to monitor electrolytes and chemistries. Levemir for high blood sugar added. March 11: Patient on TPN. Labs as of 11:15 AM is still pending. Continue per current treatment plan. Will check labs and adjust TPN as needed. Continue per consultants. March 10: Patient on TPN. Labs reviewed. Electrolytes overall stable. CPK is elevated. Will monitor electrolyte, CPK level, lipid panel. Continue per consultants. Discussed with pharmacist. Discussed with RN. Nutritional eval uation noted. Previously: D5W 100 cc an hour Monitor electrolytes renal parameters TPN and Intralipid ordered Will follow Continue per consultants Dietary consult requested Subjective ROS Limited/Unobtainable: Yes Objective Objective Last 24 Hour Vital Signs Date Time Temp Pulse Resp B/P (MAP) Pulse Ox O2 Delivery O2 Flow Rate FiO2 2/17/21 12:44 197/94 04/19/20 12:15 21 146/90 Mechanical Ventilator 100 04/19/20 12:05 100 04/19/20 12:04 98.4 92 24 148/92 (110) 96 04/19/20 12:00 Mechanical Ventilator 04/19/20 12:00 21 148/92 Mechanical Ventilator 100 04/19/20 12:00 21 148/92 Mechanical Ventilator 100 04/19/20 11:00 82 24 146/79 (101) 91 04/19/20 11:00 19 146/79 Mechanical Ventilator 100 04/19/20 11:00 19 146/79 Mechanical Ventilator 100 04/19/20 10:57 18 156/87 Mechanical Ventilator 100 04/19/20 10:00 81 18 149/87 (107) 94 04/19/20 10:00 19 149/87 Mechanical Ventilator 100 04/19/20 10:00 19 149/87 Mechanical Ventilator 100 04/19/20 09:00 60 18 99/57 (71) 94 04/19/20 09:00 18 99/57 Mechanical Ventilator 80 04/19/20 09:00 18 99/57 Mechanical Ventilator 90 04/19/20 08:00 60 04/19/20 08:00 98.7 61 18 99/56 (70) 93 04/19/20 08:00 Mechanical Ventilator 04/19/20 08:00 80 04/19/20 08:00 18 106/56 90 04/19/20 08:00 18 106/56 Mechanical Ventilator 90 04/19/20 07:40 18 95/53 Mechanical Ventilator 90 04/19/20 07:00 20 148/83 Endotracheal Tube 90 04/19/20 07:00 20 154/75 Endotracheal Tube 90 04/19/20 07:00 61 18 98/55 (69) 95 04/19/20 06:00 20 129/78 Mechanical Ventilator 90 04/19/20 06:00 20 145/74 Endotracheal Tube 90 04/19/20 06:00 77 18 123/73 (90) 96 04/19/20 05:00 83 18 138/72 (94) 94 04/19/20 05:00 19 145/82 Endotracheal Tube 90 04/19/20 05:00 19 136/78 Endotracheal Tube 90 04/19/20 04:00 80 04/19/20 04:00 64 2/17/21 04:00 19 128/70 Endotracheal Tube 90 04/19/20 04:00 20 124/71 Endotracheal Tube 90 04/19/20 04:00 Mechanical Ventilator 04/19/20 04:00 98.0 63 18 105/60 (75) 97 04/19/20 03:59 27 107/70 Mechanical Ventilator 90 04/19/20 03:33 64 18 85 04/19/20 03:00 65 18 115/63 (80) 93 04/19/20 03:00 19 127/70 Endotracheal Tube 90 04/19/20 03:00 20 130/78 Endotracheal Tube 90 04/19/20 02:00 66 18 113/63 (80) 99 04/19/20 02:00 19 129/85 Endotracheal Tube 90 04/19/20 02:00 20 135/74 Endotracheal Tube 90 04/19/20 01:18 19 108/72 Endotracheal Tube 90 04/19/20 01:00 19 118/81 Endotracheal Tube 90 04/19/20 01:00 19 124/65 Endotracheal Tube 90 04/19/20 01:00 67 18 106/62 (77) 98 04/19/20 00:00 81 04/19/20 00:00 19 140/83 Endotracheal Tube 90 04/19/20 00:00 20 142/76 Endotracheal Tube 90 04/19/20 00:00 80 04/19/20 00:00 Mechanical Ventilator 04/19/20 00:00 98.5 73 18 112/62 (79) 96 04/18/20 23:19 85 18 85 04/18/20 23:00 96 22 152/75 (100) 91 04/18/20 23:00 20 132/65 Endotracheal Tube 90 04/18/20 23:00 20 154/71 Endotracheal Tube 90 04/18/20 22:00 20 182/78 Endotracheal Tube 90 04/18/20 22:00 18 178/85 Endotracheal Tube 100 04/18/20 22:00 101 24 152/72 (98) 88 04/18/20 21:39 20 180/75 Endotracheal Tube 100 04/18/20 21:00 93 18 166/75 (105) 83 04/18/20 21:00 20 168/82 Endotracheal Tube 90 04/18/20 21:00 20 172/69 Endotracheal Tube 90 2/16/21 20:00 75 04/18/20 20:00 80 04/18/20 20:00 98.3 81 11 136/76 (96) 89 04/18/20 20:00 19 180/75 Endotracheal Tube 90 04/18/20 20:00 19 162/74 Endotracheal Tube 90 04/18/20 20:00 Mechanical Ventilator 04/18/20 19:28 69 18 70 04/18/20 19:00 19 158/70 Endotracheal Tube 90 04/18/20 19:00 20 152/80 Endotracheal Tube 90 04/18/20 19:00 74 18 112/61 (78) 92 04/18/20 18:00 70 18 103/58 (73) 97 04/18/20 18:00 18 103/58 Endotracheal Tube 70 04/18/20 18:00 18 103/58 Endotracheal Tube 70 04/18/20 17:00 18 105/56 Endotracheal Tube 70 04/18/20 17:00 80 18 105/56 (72) 94 04/18/20 16:48 18 111/60 Endotracheal Tube 80 04/18/20 16:00 103 04/18/20 16:00 Mechanical Ventilator 04/18/20 16:00 98.8 96 21 136/75 (95) 94 04/18/20 16:00 21 136/75 Endotracheal Tube 80 04/18/20 16:00 80 04/18/20 15:00 24 168/85 Endotracheal Tube 80 04/18/20 15:00 24 168/85 Endotracheal Tube 80 04/18/20 15:00 119 24 168/85 (112) 90 04/18/20 14:27 24 185/92 Endotracheal Tube 80 04/18/20 14:00 18 142/75 Endotracheal Tube 80 04/18/20 14:00 18 142/75 Endotracheal Tube 80 04/18/20 14:00 82 18 142/75 (97) 95 Intake and Output 04/18/20 04/19/20 19:00 07:00 Intake Total 1520 ml 1276.5 ml Output Total 650 ml 550 ml Balance 870 ml 726.5 ml Free Water 250 ml IV Total 670 ml 826.5 ml Tube Feeding 600 ml 450 ml Output Urine Total 650 ml 550 ml No CHEM panel drawn today Height (Feet): 5 Height (Inches): 10.00 Weight (Pounds): 240 General Appearance: no apparent distress EENT: other - Intubated on ventilator on FiO2 of 100% Cardiovascular: tachycardia Respiratory/Chest: decreased breath sounds Abdomen: distended Rubin Cooper MD Apr 19, 2020 13:28
--- NOTE | 2020-04-19 15:00 | NUR ---
NURSE NOTES: Bed bath given pulled up repositioned for comfort,
[2020-04-19] MEDS: Bactrim-DS 1 tab ORAL SCH (16:31)
--- NOTE | 2020-04-19 17:00 | NUR ---
NURSE NOTES: Pt resting quietly in bed no further resp distress presented,keep on RASS -2 light sedation.
--- NOTE | 2020-04-19 17:50 | Infectious Diseases Prog Note ---
Assessment/Plan Assessment/Plan ASSESSMENT AND PLAN: 1. staph aureus bacteremia/mssa, ? source, ? endocarditis, sepsis, leukocytosis, ? CAP, PJP less likely with HIV negative and steroids < 1 month covid-19 +, hypoxia, sob, chest x-ray worse, ? PE, ? HCAP/aspiration pna recurrent fevers - ? fungal, ? OI leukocytosis noted - ? new infection, ? steroids cocci serology negative, legionella negative, beta 1,3 D-glucan wnl, Il-16 - 13.7 elevated LFT's - ? TPN, ? Bactrim - US without gallbladder disease, + steatosis - d/w GI - TPN more likely than bactrim as etiology e.coli uti - s/p treatment with rocephin, s/p treatment for presumptive pneumocystis pna + yeast in blood, fungemia, ? line infection, line changed worsening respiratory status, ? new aspiration pna/hcap, ? sepsis ? fungal/cynthia uti vs colonization - zosyn - day # 9/10, surveillance cultures negative to date, discontinue vancomycin - s/p micafungin - day # 14/14 (post negative blood cultures - 04/02/20) - on solumedrol - picc line changed - bactrim for pneumocystis prophylaxis, s/p pneumocystis treatment - s/p tx for mssa bacteremia and ? endocarditis - monitor hypoxia, labs and chest x-ray - guarded condition - plan on trach - c.diff. negative 2. covid-19 isolation 3. Hypertension history. Blood pressure treatment primary care team. 4. Elevated blood sugars. Blood sugar treatment per primary care team. 5. No known drug allergies. 6. Social history is positive for smoking. 7. Family history is noncontributory. 8. MAR was noted. 9. Case was discussed with RN. 10. Continue treatment per primary consultants. Subjective Constitutional: Reports: other - on vent, sedated, no pressors ; Denies: fever HEENT: Reports: congestion Respiratory: Reports: shortness of breath Cardiovascular: Reports: other - no pressors Gastrointestinal/Abdominal: Denies: vomiting, diarrhea Genitourinary: Reports: other - + joseph Neurologic: Reports: other - sedated Psychiatric: Reports: other - NA Skin: Denies: rash Hematologic: Denies: bleeding Musculoskeletal: Reports: other - NA Allergies: Coded Allergies: No Known Allergies (Unverified , 02/05/20) Objective Last 24 Hour Vital Signs Date Time Temp Pulse Resp B/P (MAP) Pulse Ox O2 Delivery O2 Flow Rate FiO2 04/19/20 17:20 19 155/57 Mechanical Ventilator 100 04/19/20 17:17 19 155/57 Mechanical Ventilator 100 04/19/20 15:00 96 20 100 04/19/20 14:00 80 18 96/49 (65) 100 04/19/20 13:27 134 22 203/83 (123) 99 04/19/20 13:15 130 22 196/89 (124) 98 04/19/20 13:00 93 20 148/67 (94) 99 04/19/20 13:00 20 148/67 Mechanical Ventilator 100 04/19/20 13:00 20 148/67 Mechanical Ventilator 100 04/19/20 12:45 22 194/99 Mechanical Ventilator 100 04/19/20 12:44 197/94 04/19/20 12:15 21 146/90 Mechanical Ventilator 100 04/19/20 12:05 100 04/19/20 12:04 98.4 92 24 148/92 (110) 96 04/19/20 12:00 Mechanical Ventilator 04/19/20 12:00 21 148/92 Mechanical Ventilator 100 04/19/20 12:00 21 148/92 Mechanical Ventilator 100 04/19/20 12:00 94 04/19/20 11:16 107 23 100 04/19/20 11:00 82 24 146/79 (101) 91 04/19/20 11:00 19 146/79 Mechanical Ventilator 100 04/19/20 11:00 19 146/79 Mechanical Ventilator 100 04/19/20 10:57 18 156/87 Mechanical Ventilator 100 04/19/20 10:00 81 18 149/87 (107) 94 04/19/20 10:00 19 149/87 Mechanical Ventilator 100 04/19/20 10:00 19 149/87 Mechanical Ventilator 100 04/19/20 09:00 60 18 99/57 (71) 94 04/19/20 09:00 18 99/57 Mechanical Ventilator 80 04/19/20 09:00 18 99/57 Mechanical Ventilator 90 04/19/20 08:00 60 04/19/20 08:00 98.7 61 18 99/56 (70) 93 04/19/20 08:00 Mechanical Ventilator 04/19/20 08:00 80 04/19/20 08:00 18 106/56 90 04/19/20 08:00 18 106/56 Mechanical Ventilator 90 04/19/20 07:40 18 95/53 Mechanical Ventilator 90 04/19/20 07:21 96 18 80 04/19/20 07:00 20 148/83 Endotracheal Tube 90 04/19/20 07:00 20 154/75 Endotracheal Tube 90 04/19/20 07:00 61 18 98/55 (69) 95 04/19/20 06:00 20 129/78 Mechanical Ventilator 90 04/19/20 06:00 20 145/74 Endotracheal Tube 90 04/19/20 06:00 77 18 123/73 (90) 96 04/19/20 05:00 83 18 138/72 (94) 94 04/19/20 05:00 19 145/82 Endotracheal Tube 90 04/19/20 05:00 19 136/78 Endotracheal Tube 90 04/19/20 04:00 80 04/19/20 04:00 64 04/19/20 04:00 19 128/70 Endotracheal Tube 90 04/19/20 04:00 20 124/71 Endotracheal Tube 90 04/19/20 04:00 Mechanical Ventilator 04/19/20 04:00 98.0 63 18 105/60 (75) 97 04/19/20 03:59 27 107/70 Mechanical Ventilator 90 04/19/20 03:33 64 18 85 04/19/20 03:00 65 18 115/63 (80) 93 04/19/20 03:00 19 127/70 Endotracheal Tube 90 04/19/20 03:00 20 130/78 Endotracheal Tube 90 04/19/20 02:00 66 18 113/63 (80) 99 04/19/20 02:00 19 129/85 Endotracheal Tube 90 04/19/20 02:00 20 135/74 Endotracheal Tube 90 04/19/20 01:18 19 108/72 Endotracheal Tube 90 04/19/20 01:00 19 118/81 Endotracheal Tube 90 04/19/20 01:00 19 124/65 Endotracheal Tube 90 04/19/20 01:00 67 18 106/62 (77) 98 04/19/20 00:00 81 04/19/20 00:00 19 140/83 Endotracheal Tube 90 04/19/20 00:00 20 142/76 Endotracheal Tube 90 04/19/20 00:00 80 04/19/20 00:00 Mechanical Ventilator 04/19/20 00:00 98.5 73 18 112/62 (79) 96 04/18/20 23:19 85 18 85 04/18/20 23:00 96 22 152/75 (100) 91 04/18/20 23:00 20 132/65 Endotracheal Tube 90 04/18/20 23:00 20 154/71 Endotracheal Tube 90 04/18/20 22:00 20 182/78 Endotracheal Tube 90 04/18/20 22:00 18 178/85 Endotracheal Tube 100 04/18/20 22:00 101 24 152/72 (98) 88 04/18/20 21:39 20 180/75 Endotracheal Tube 100 04/18/20 21:00 93 18 166/75 (105) 83 04/18/20 21:00 20 168/82 Endotracheal Tube 90 04/18/20 21:00 20 172/69 Endotracheal Tube 90 04/18/20 20:00 75 04/18/20 20:00 80 04/18/20 20:00 98.3 81 11 136/76 (96) 89 04/18/20 20:00 19 180/75 Endotracheal Tube 90 04/18/20 20:00 19 162/74 Endotracheal Tube 90 04/18/20 20:00 Mechanical Ventilator 04/18/20 19:28 69 18 70 04/18/20 19:00 19 158/70 Endotracheal Tube 90 04/18/20 19:00 20 152/80 Endotracheal Tube 90 04/18/20 19:00 74 18 112/61 (78) 92 04/18/20 18:00 70 18 103/58 (73) 97 04/18/20 18:00 18 103/58 Endotracheal Tube 70 04/18/20 18:00 18 103/58 Endotracheal Tube 70 Height (Feet): 5 Height (Inches): 10.00 Weight (Pounds): 240 General Appearance: other - on vent, no pressors, fio2-100 % HEENT: normocephalic, atraumatic, anicteric, no JVD, other - oral - intubated Respiratory/Chest: crackles/rales, rhonchi - bilaterally Cardiovascular: normal rate, regular rhythm, no gallop/murmur Abdomen: normal bowel sounds, soft, non tender, no organomegaly, non distended Genitourinary: other - + joseph - urine clear Extremities: no cyanosis Skin: no rash Neurologic/Psychiatric: other - sedated, on vent Lymphatic: no neck adenopathy Musculoskeletal: no effusion CT chest: IMPRESSION: There are mild subpleural ground-glass and consolidating infiltrates in the dependent portions of both lower lobes and to lesser degree the upper lobes consistent with bilateral pneumonia. The infiltrates are typical for Covid 19. No evidence of pulmonary embolus. CT abdomen and pelvis: IMPRESSION: 1. Scattered hepatic hypodense lesions, too small to characterize on this examination without intravenous contrast. 2. Colonic diverticulosis without evidence of acute diverticulitis. 3. Scattered enlarged mesenteric lymph nodes, presumably reactive. teral pneumonia. The infiltrates are typical for Covid 19. No evidence of pulmonary embolus. Chest x-ray - 12/19/19 - Indication: Shortness of breath Technique: One view of the chest Comparison: 02/17/2020 Findings: Interim worsening of bilateral infiltrates, particularly on the right. The heart is borderline enlarged. The pleural spaces are clear. Left arm PICC is again demonstrated Impression: Worsening bilateral infiltrates over one day, likely pneumonia CT chest - 02/19/20 - IMPRESSION: Increased extensive patchy ground-glass opacities and densities throughout the lungs, suggestive of Covid 19 infection. Chest x-ray 02/23/20 - Procedure: XRAY Chest 1v As Indication: Reason For Exam: INFECT Technique: One view of the chest Comparison: 02/20/2020 Findings: Allowing for differences in exposure technique, bilateral mid and lower lung infiltrates are probably unchanged. The heart size is normal. The pleural spaces are clear. Impression: Unchanged, over 4 days, findings as above. Chest x-ray - 02/25/20 - FINDINGS: Lungs: Interval slightly worsening bilateral airspace disease. Pleural space: Unremarkable. No pneumothorax. Heart: Unremarkable. No cardiomegaly. Mediastinum: Unremarkable. Bones/joints: Unremarkable. IMPRESSION: Interval slightly worsening bilateral airspace disease. Chest x-ray - 03/02/20 - Procedure: XRAY Chest 1v Indication: Shortness of breath Technique: One view of the chest Comparison: 02/25/2020 Findings: Bilateral interstitial and airspace infiltrates are unchanged. The heart size is normal. Left arm PICC is again demonstrated Impression: Unchanged, over one day, findings as above. Chest x-ray - 03/06/20 - Procedure: XRAY Chest 1v Indication: Shortness of breath Technique: One view of the chest Comparison: 03/02/2020 Findings: Bilateral infiltrates are unchanged. Normal heart size. Pleural spaces are clear Chest x-ray - 03/12/10 - Impression: COMPARISON: Chest radiograph March 06, 2020. FINDINGS/IMPRESSION: Improving basilar infiltrates. Follow chest radiograph recommended. The upper lung finley are clear. No pneumothorax. Stable cardiomegaly. Stable left upper extremity PICC line. anged, over 4 days, findings as above. Chest x-ray - 03/17/20 - Procedure: XRAY Chest 1v Indication: Shortness of breath Technique: One view of the chest Comparison: 03/12/2020 Findings: Left arm PICC is again demonstrated. Infiltrates are unchanged. The heart size is upper limits of normal. Impression: Unchanged, over 5 days, findings as above. Abdominal US - IMPRESSION: 1. Gallbladder is normal. 2. Hepatic steatosis. 3. 1.7 cm cyst right kidney. Impression. Chest x-ray - Procedure: XRAY Chest 1v Indication: Shortness of breath Technique: One view of the chest Comparison: 03/17/2020 Findings: Bilateral right greater than left infiltrates again demonstrated. The heart size is normal. There is a left arm PICC in good position. Impression: Unchanged, over 5 days, findings as above. Chest x-ray - 03/29/20 - Procedure: XRAY Chest 1v Indication: Cough Technique: One view of the chest Comparison: 03/28/2020 Findings: Bilateral infiltrates are unchanged or slightly worse, allowing for differences in exposure technique. The pleural spaces are clear. The heart size is normal. Stable satisfactory position of endotracheal tube, left arm PICC. Orogastric tube has retracted somewhat the position remains satisfactory. Impression: Stable to slightly worse bilateral infiltrates. 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 Interim advancement of orogastric tube as well. Bilateral infiltrates are unchanged. Left arm PICC remains Impression: Improved and now satisfactory tube positions as described. ICU nurse Maeve notified at the time of interpretation Chest x-ray - 04/02/20 - COMPARISON: Chest x-rays dated 03/31/20 and 03/12/20. FINDINGS: Lungs: No significant change in bilateral prominent interstitial markings. The lungs are otherwise clear without focal consolidation. Pleural space: Unremarkable. The costophrenic angles are sharp. No visible pneumothorax. Heart: Unremarkable. No cardiomegaly. Mediastinum: Unremarkable. Bones/joints: Unremarkable. Tubes, lines and devices: Endotracheal tube tip 6.5 cm above the sunny. NG tube tip in the distal stomach. Telemetry leads overlie the thorax. IMPRESSION: No significant change in bilateral prominent interstitial markings. Procedure: XRAY Chest 1v Procedure: XRAY Chest 1v Reason for study: Shortness of breath 04/06/20 - Comparison films: 04/02/2020. FINDINGS: Endotracheal tube and NG tube remain in place. There is worsening of right basilar infiltrates. Some haziness in left lung base unchanged. Cardiac and mediastinal silhouette are within normal limits. CP angles are sharp. The bony thorax a ppear unremarkable. IMPRESSION: Worsening of right basilar infiltrate. Chest x-ray - 04/09/20 - Procedure: XRAY Chest 1v FILM CXR 1 VIEW INDICATION: Infection COMPARISON: April 05, 2020 FINDINGS: Single frontal view demonstrates a normal cardiomediastinal silhouette. Endotracheal tube in place with tip above the sunny. Elevation of the right hemidiaphragm. Interstitial prominence with bilateral lower lobe infiltrates. Lung bases appear worse from the prior exam. Small right effusion. Right-sided PICC line with tip in the superior vena cava. Enteric tube in place. IMPRESSION: Interstitial prominence and bilateral lower lobe pneumonia with worsening appearance from the prior study. Chest x-ray - 04/12/20 - Procedure: XRAY Chest 1v Indication: Shortness of breath Technique: One view of the chest Comparison: 04/09/2020 Findings: Stable satisfactory tube and line positions. Bilateral infiltrates have worsened slightly since prior study. The heart size is normal. Impression: Worsening bilateral infiltrates, over 3 days Chest x-ray - 04/15/20 - COMPARISON: 02/11/21. FINDINGS: Lungs: There is been no significant change in mild to moderate patchy diffuse bilateral alveolar infiltrates which are most prominent in the lung bases. Pleural space: Unremarkable. No pneumothorax. Heart: Unremarkable. No cardiomegaly. Mediastinum: Unremarkable. Bones/joints: Unremarkable. Tubes, lines and devices: There is an endotracheal tube, right-sided PICC line and NG tube in good position. IMPRESSION: There is been no significant change in mild to moderate patchy diffuse bilateral alveolar infiltrates which are most prominent in the lung bases. Chest x-ray - 04/18/20 - Procedure: XRAY Chest 1v Indication: Cough Technique: One view of the chest Comparison: 04/15/2020 Findings: Less optimal inspiration currently than previously. Stable satisfactory positions of endotracheal and orogastric tubes and right arm PICC. Bilateral infiltrates are again demonstrated, unchanged. Impression: Unchanged, over 3 days, findings as above. Microbiology Date/Time Source Procedure Growth Status 04/14/20 16:35 Stool Clostridium difficile Toxin Assay - Final Complete 04/12/20 08:40 Urine,Clean Catch Urine Culture - Final Cynthia Parapsilosis Complete 04/12/20 08:40 Sputum Gram Stain - Final Complete 04/12/20 08:40 Sputum Sputum Culture - Final NORMAL UPPER RESPIRATORY WILIAM AT 50 ... Complete 04/11/20 18:55 Blood Blood Culture - Final NO GROWTH AFTER 5 DAYS Complete Labs Test 04/17/20 05:18 04/18/20 03:05 White Blood Count 6.0 K/UL (4.8-10.8) 6.6 K/UL (4.8-10.8) Red Blood Count 3.47 M/UL (4.70-6.10) 3.22 M/UL (4.70-6.10) Hemoglobin 9.8 G/DL (14.2-18.0) 9.2 G/DL (14.2-18.0) Hematocrit 30.9 % (42.0-52.0) 29.1 % (42.0-52.0) Mean Corpuscular Volume 89 FL (80-99) 90 FL (80-99) Mean Corpuscular Hemoglobin 28.4 PG (27.0-31.0) 28.5 PG (27.0-31.0) Mean Corpuscular Hemoglobin Concent 31.8 G/DL (32.0-36.0) 31.6 G/DL (32.0-36.0) Red Cell Distribution Width 17.3 % (11.6-14.8) 17.4 % (11.6-14.8) Platelet Count 227 K/UL (150-450) 233 K/UL (150-450) Mean Platelet Volume 7.4 FL (6.5-10.1) 7.1 FL (6.5-10.1) Neutrophils (%) (Auto) 82.1 % (45.0-75.0) % (45.0-75.0) Lymphocytes (%) (Auto) 12.9 % (20.0-45.0) % (20.0-45.0) Monocytes (%) (Auto) 4.6 % (1.0-10.0) % (1.0-10.0) Eosinophils (%) (Auto) 0.0 % (0.0-3.0) % (0.0-3.0) Basophils (%) (Auto) 0.3 % (0.0-2.0) % (0.0-2.0) Sodium Level 142 MMOL/L (136-145) 140 MMOL/L (136-145) Potassium Level 3.5 MMOL/L (3.5-5.1) 4.1 MMOL/L (3.5-5.1) Chloride Level 100 MMOL/L (98-107) 102 MMOL/L (98-107) Carbon Dioxide Level 40 MMOL/L (21-32) 38 MMOL/L (21-32) Anion Gap 1 mmol/L (5-15) 0 mmol/L (5-15) Blood Urea Nitrogen 21 mg/dL (7-18) 19 mg/dL (7-18) Creatinine 0.5 MG/DL (0.55-1.30) 0.5 MG/DL (0.55-1.30) Estimat Glomerular Filtration Rate > 60 mL/min (>60) > 60 mL/min (>60) Glucose Level 113 MG/DL (74-106) 155 MG/DL (74-106) Calcium Level 8.3 MG/DL (8.5-10.1) 8.7 MG/DL (8.5-10.1) Phosphorus Level 3.9 MG/DL (2.5-4.9) Magnesium Level 2.2 MG/DL (1.8-2.4) Total Bilirubin 0.7 MG/DL (0.2-1.0) 0.6 MG/DL (0.2-1.0) Aspartate Amino Transf (AST/SGOT) 37 U/L (15-37) 23 U/L (15-37) Alanine Aminotransferase (ALT/SGPT) 143 U/L (12-78) 115 U/L (12-78) Alkaline Phosphatase 352 U/L (46-116) 285 U/L (46-116) C-Reactive Protein, Quantitative 5.2 mg/dL (0.00-0.90) Pro-B-Type Natriuretic Peptide 1221 pg/mL (0-125) Total Protein 5.2 G/DL (6.4-8.2) 5.3 G/DL (6.4-8.2) Albumin 1.9 G/DL (3.4-5.0) 2.0 G/DL (3.4-5.0) Globulin 3.3 g/dL 3.3 g/dL Albumin/Globulin Ratio 0.6 (1.0-2.7) 0.6 (1.0-2.7) Differential Total Cells Counted 100 Neutrophils % (Manual) 87 % (45-75) Lymphocytes % (Manual) 10 % (20-45) Monocytes % (Manual) 3 % (1-10) Eosinophils % (Manual) 0 % (0-3) Basophils % (Manual) 0 % (0-2) Band Neutrophils 0 % (0-8) Platelet Estimate Adequate Platelet Morphology Normal Hypochromasia 1+ Anisocytosis 1+ Current Medications Medications (Trade) Dose Ordered Sig/Dennis Route PRN Reason Start Time Stop Time Status Last Admin Dose Admin Acetaminophen (Tylenol) 650 mg Q4H PRN ORAL Temp >100.5 04/13/20 00:30 05/13/20 00:29 04/13/20 01:30 Bisacodyl (Dulcolax) 10 mg Q12H PRN RECTAL Constipation 03/18/20 16:45 06/16/20 16:44 Chlorhexidine Gluconate (Marlen-Hex 2%) 1 applic DAILY@1999 TOPIC 03/30/20 20:00 06/28/20 19:59 04/18/20 20:35 Dextrose (Dextrose 50%) 25 ml Q30M PRN IV Hypoglycemia 03/29/20 20:45 06/27/20 20:44 Dextrose (Dextrose 50%) 50 ml Q30M PRN IV Hypoglycemia 03/29/20 20:45 06/27/20 20:44 Enoxaparin Sodium (Lovenox) 80 mg EVERY 12 HOURS SUBQ 04/06/20 21:00 07/05/20 20:59 04/19/20 09:04 Fentanyl Citrate 250 ml @ 1 mls/hr Q24H IV 04/18/20 04:00 04/21/20 09:00 04/19/20 17:20 Hydralazine HCl (Apresoline) 10 mg Q4H PRN IV For High Blood Pressure 03/30/20 12:15 06/28/20 12:14 04/19/20 12:44 Insulin Aspart (NovoLOG) Q6HR SUBQ 03/30/20 00:00 06/28/20 00:00 04/18/20 18:11 Labetalol HCl (Normodyne) 10 mg Q4H PRN IV sbp greater tahtn 160 03/28/20 17:30 04/27/20 17:29 Methylprednisolone Sodium Succinate (Solu-MEDROL) 20 mg Q12HR IVP 04/12/20 21:00 06/20/20 20:59 04/19/20 09:03 Metoclopramide HCl (Reglan) 10 mg Q6H IVP 03/30/20 15:00 04/29/20 14:59 04/19/20 14:19 Midazolam HCl 200 ml @ 0 mls/hr Q24H PRN IV Agitation 04/17/20 22:30 04/24/20 22:29 04/19/20 17:17 Pantoprazole (Protonix) 40 mg EVERY 12 HOURS IVP 04/01/20 21:00 05/01/20 20:59 04/19/20 09:08 Piperacillin Sod/ Tazobactam Sod 3.375 gm/Dextrose 110 ml @ 27.5 mls/hr EVERY 8 HOURS IVPB 04/17/20 22:00 04/21/20 23:59 04/19/20 14:18 Trimethoprim/ Sulfamethoxazole (Bactrim-DS) 1 tab Q24H ORAL 03/29/20 17:00 05/10/20 16:59 04/19/20 16:31 Kisha Salazar MD Apr 19, 2020 17:50
--- NOTE | 2020-04-19 17:55 | Cardiology Progress Note ---
Assessment/Plan Assessment/Plan Acute covid 19 pneumonia hypoxemia infiltrate bilat bacteremia hypernatremia / hyponatremia mild abn lfts tachy post intubation fever fungemia dvt upper ext now on 1000 % fio2 , 2-[address] fry discussing trach but pt oxygen requirement are too high still full sedated with fentanyl and versed not febrile now hypoxemia unlikely cardiac related tube feeding being tolerated echo reviewed last on 04/06 still shows normal lv function no valve pathology cxr still showing bilateral lower lobe infiltrates as of04/18 tele reviewed sinus remains critical now is on full dose anticoag due to dvt ue s/p diuresis of about 7 liter over 48 hour dcd 04/17 cr is stable bp fluctuating d/w rn covid pcr negative , however considering that it took 3 tests to finally initially identify his covid infection i am not sure if we can trust Subjective Subjective per rn fully sedated intemittenly desturates now back up to 100% fio2 , toleratign feeds Objective Last 24 Hour Vital Signs Date Time Temp Pulse Resp B/P (MAP) Pulse Ox O2 Delivery O2 Flow Rate FiO2 04/19/20 17:20 19 155/57 Mechanical Ventilator 100 04/19/20 17:17 19 155/57 Mechanical Ventilator 100 04/19/20 17:00 110 21 155/57 (89) 97 04/19/20 16:00 98.9 77 18 147/72 (97) 100 04/19/20 15:00 96 20 100 04/19/20 15:00 76 18 104/50 (68) 100 04/19/20 14:00 80 18 96/49 (65) 100 04/19/20 13:27 134 22 203/83 (123) 99 04/19/20 13:15 130 22 196/89 (124) 98 04/19/20 13:00 93 20 148/67 (94) 99 04/19/20 13:00 20 148/67 Mechanical Ventilator 100 04/19/20 13:00 20 148/67 Mechanical Ventilator 100 04/19/20 12:45 22 194/99 Mechanical Ventilator 100 04/19/20 12:44 197/94 04/19/20 12:15 21 146/90 Mechanical Ventilator 100 04/19/20 12:05 100 04/19/20 12:04 98.4 92 24 148/92 (110) 96 04/19/20 12:00 Mechanical Ventilator 04/19/20 12:00 21 148/92 Mechanical Ventilator 100 04/19/20 12:00 21 148/92 Mechanical Ventilator 100 04/19/20 12:00 94 04/19/20 11:16 107 23 100 04/19/20 11:00 82 24 146/79 (101) 91 04/19/20 11:00 19 146/79 Mechanical Ventilator 100 04/19/20 11:00 19 146/79 Mechanical Ventilator 100 04/19/20 10:57 18 156/87 Mechanical Ventilator 100 04/19/20 10:00 81 18 149/87 (107) 94 04/19/20 10:00 19 149/87 Mechanical Ventilator 100 04/19/20 10:00 19 149/87 Mechanical Ventilator 100 04/19/20 09:00 60 18 99/57 (71) 94 04/19/20 09:00 18 99/57 Mechanical Ventilator 80 04/19/20 09:00 18 99/57 Mechanical Ventilator 90 04/19/20 08:00 60 04/19/20 08:00 98.7 61 18 99/56 (70) 93 04/19/20 08:00 Mechanical Ventilator 04/19/20 08:00 80 04/19/20 08:00 18 106/56 90 04/19/20 08:00 18 106/56 Mechanical Ventilator 90 04/19/20 07:40 18 95/53 Mechanical Ventilator 90 04/19/20 07:21 96 18 80 04/19/20 07:00 20 148/83 Endotracheal Tube 90 04/19/20 07:00 20 154/75 Endotracheal Tube 90 04/19/20 07:00 61 18 98/55 (69) 95 04/19/20 06:00 20 129/78 Mechanical Ventilator 90 04/19/20 06:00 20 145/74 Endotracheal Tube 90 04/19/20 06:00 77 18 123/73 (90) 96 04/19/20 05:00 83 18 138/72 (94) 94 04/19/20 05:00 19 145/82 Endotracheal Tube 90 04/19/20 05:00 19 136/78 Endotracheal Tube 90 04/19/20 04:00 80 04/19/20 04:00 64 04/19/20 04:00 19 128/70 Endotracheal Tube 90 04/19/20 04:00 20 124/71 Endotracheal Tube 90 04/19/20 04:00 Mechanical Ventilator 04/19/20 04:00 98.0 63 18 105/60 (75) 97 04/19/20 03:59 27 107/70 Mechanical Ventilator 90 04/19/20 03:33 64 18 85 04/19/20 03:00 65 18 115/63 (80) 93 04/19/20 03:00 19 127/70 Endotracheal Tube 90 04/19/20 03:00 20 130/78 Endotracheal Tube 90 04/19/20 02:00 66 18 113/63 (80) 99 04/19/20 02:00 19 129/85 Endotracheal Tube 90 04/19/20 02:00 20 135/74 Endotracheal Tube 90 04/19/20 01:18 19 108/72 Endotracheal Tube 90 04/19/20 01:00 19 118/81 Endotracheal Tube 90 04/19/20 01:00 19 124/65 Endotracheal Tube 90 04/19/20 01:00 67 18 106/62 (77) 98 04/19/20 00:00 81 04/19/20 00:00 19 140/83 Endotracheal Tube 90 04/19/20 00:00 20 142/76 Endotracheal Tube 90 04/19/20 00:00 80 04/19/20 00:00 Mechanical Ventilator 04/19/20 00:00 98.5 73 18 112/62 (79) 96 04/18/20 23:19 85 18 85 04/18/20 23:00 96 22 152/75 (100) 91 04/18/20 23:00 20 132/65 Endotracheal Tube 90 04/18/20 23:00 20 154/71 Endotracheal Tube 90 04/18/20 22:00 20 182/78 Endotracheal Tube 90 04/18/20 22:00 18 178/85 Endotracheal Tube 100 04/18/20 22:00 101 24 152/72 (98) 88 04/18/20 21:39 20 180/75 Endotracheal Tube 100 04/18/20 21:00 93 18 166/75 (105) 83 04/18/20 21:00 20 168/82 Endotracheal Tube 90 04/18/20 21:00 20 172/69 Endotracheal Tube 90 04/18/20 20:00 75 04/18/20 20:00 80 04/18/20 20:00 98.3 81 11 136/76 (96) 89 04/18/20 20:00 19 180/75 Endotracheal Tube 90 04/18/20 20:00 19 162/74 Endotracheal Tube 90 04/18/20 20:00 Mechanical Ventilator 04/18/20 19:28 69 18 70 04/18/20 19:00 19 158/70 Endotracheal Tube 90 04/18/20 19:00 20 152/80 Endotracheal Tube 90 04/18/20 19:00 74 18 112/61 (78) 92 04/18/20 18:00 70 18 103/58 (73) 97 04/18/20 18:00 18 103/58 Endotracheal Tube 70 04/18/20 18:00 18 103/58 Endotracheal Tube 70 General Appearance: no apparent distress, on vent, patient on isolation, isolation precautions Extremities: trace edema Intake and Output 04/18/20 04/19/20 19:00 07:00 Intake Total 1520 ml 1276.5 ml Output Total 650 ml 550 ml Balance 870 ml 726.5 ml Free Water 250 ml IV Total 670 ml 826.5 ml Tube Feeding 600 ml 450 ml Output Urine Total 650 ml 550 ml Objective pt in covid 19 isoaltion with acute infection Manan Awan MD Apr 19, 2020 17:55
--- NOTE | 2020-04-19 19:30 | NUR ---
NURSE HAND-OFF REPORT: Latest Vital Signs: Temperature 98.9 , Pulse 58 , B/P 101 /56 , Respiratory Rate 18 , O2 SAT 100 , Mechanical Ventilator, O2 Flow Rate . Vital Sign Comment: unstable EKG Rhythm: Sinus Rhythm Rhythm change?: N Notified?: Courtney Paige MD Response: Message left await call Latest Hassan Fall Score: 50 Fall Risk: High Risk Safety Measures: Call light Within Reach, Bed Alarm Zone 3, Side Rails Side Rails x3, Bed position Low and Locked. Fall Precautions: Yellow Socks Yellow Gown Door Sign Patient Fall Education Report given to Jesús Goodman RN..
[2020-04-19] MEDS: Dyna-Hex 2% Top Sol 2oz TOPIC SCH (21:04)
[2020-04-20] VITALS (35 sets, daily range): BP systolic 98–178; BP diastolic 50–81
[2020-04-20] MEDS: fentaNYL 2500mcg/NS 250ml 250 ML IV SCH ×4 (00:39→18:46)
[2020-04-20] MEDS: Metoclopramide 10mg/2ml Inj IVP SCH ×4 (03:45→20:48)
[2020-04-20 04:41] LABS: HEMATOCRIT 28.1 % (42.0-52.0); HEMOGLOBIN 8.8 G/DL (14.2-18.0); MEAN CORPUSCULAR VOLUME 91 FL (80-99); PLATELET COUNT 267 K/UL (150-450); RED BLOOD COUNT 3.09 M/UL (4.70-6.10); RED CELL DISTRIBUTION WIDTH 17.3 % (11.6-14.8); WHITE BLOOD COUNT 5.6 K/UL (4.8-10.8)
[2020-04-20] MEDS: Versed 100mg/NS 200ml 200 ML IV PRN ×4 (04:41→18:45)
[2020-04-20 05:07] LABS: PHOSPHORUS 3.6 MG/DL (2.5-4.9)
[2020-04-20] MEDS: Piperacillin/Tazobactam 3.375 GM in D5W 110 ML IVPB SCH ×3 (05:08→21:34)
[2020-04-20 05:27] LABS: ALANINE AMINOTRANSFERASE 70 U/L (12-78); ALBUMIN/GLOBULIN RATIO 0.6 (1.0-2.7); ALKALINE PHOSPHATASE 190 U/L (46-116); ANION GAP 2 mmol/L (5-15); ASPARTATE AMINO TRANSFERASE 16 U/L (15-37); BILIRUBIN,TOTAL 0.5 MG/DL (0.2-1.0); BLOOD UREA NITROGEN 15 mg/dL (7-18); CALCIUM 8.3 MG/DL (8.5-10.1); CARBON DIOXIDE 34 MMOL/L (21-32); CHLORIDE 106 MMOL/L (98-107); CREATININE 0.4 MG/DL (0.55-1.30); POTASSIUM 4.2 MMOL/L (3.5-5.1); SODIUM 142 MMOL/L (136-145)
[2020-04-20] MEDS: NovoLOG Insulin Flexpen SUBQ SCH ×5 (06:00→23:34)
--- NOTE | 2020-04-20 07:25 | NUR ---
CASE MANAGEMENT:REVIEW 04/20/20 SI: COVID PNEUMONIA~INTUBATED 98.5 56 20 99/55 100% ON VENT SUPPORT W/100% FIO2 PEEP~5.0 h/h-8.8/28.1 IS: IV LASIX QD FENTANYL GTT VERSED GTT IV ZOSYN Q8HRS IV SOLUMEDROL 20MG Q12 LOVENOX SQ Q12 IV PROTONIX Q12 BACTRIM NG Q24 IV REGLAN Q6HRS : ICU STATUS PLAN: NON VIOLENT RESTRAINTS WEAN TOLERATED
--- NOTE | 2020-04-20 07:30 | NUR ---
NURSE HAND-OFF REPORT: Latest Vital Signs: Temperature 98.5 , Pulse 68 , B/P 138 /68 , Respiratory Rate 18 , O2 SAT 97 , Mechanical Ventilator, O2 Flow Rate . Vital Sign Comment: stable EKG Rhythm: Sinus Bradycardia Rhythm change?: N Notified?: Courtney Paige MD Response: Message left await call Latest Hassan Fall Score: 50 Fall Risk: High Risk Safety Measures: Call light Within Reach, Bed Alarm Zone 3, Side Rails Side Rails x3, Bed position Low and Locked. Fall Precautions: Yellow Socks Yellow Gown Door Sign Patient Fall Education Report given to PRIYANKA Orozco.
--- NOTE | 2020-04-20 07:55 | NUR ---
NURSE NOTES: Report received from Annie Goodman RN.Pt sedated orally intubated ,ETT 8,lip line 24,,AC 18,TV ,750,FIO2 90%,PeeP5,noted no resp distress ,no signs of discomfort presented,S-R on the monitor ,OGT feeding Glucerna 1.2 at 50 ml/hr in placed per auscultation,no residual,Brownlee cath draining to dark jeff urine ,with minimal output,skin warm and edematous,IV site to ALBERT PICC line intact with Fentanyl drip at 300 mcg /hr,Versed drip at 20 mg /hr,SR up x2 HOB elevated ,bed lock at lowest position ,will continue with plans of care.
[2020-04-20] MEDS: Solu-MEDROL 40mg Inj IVP SCH ×2 (09:24→20:48)
[2020-04-20] MEDS: Enoxaparin 80mg Inj SUBQ SCH ×2 (09:25→20:49)
[2020-04-20] MEDS: Pantoprazole Inj IVP SCH (09:47)
--- NOTE | 2020-04-20 10:00 | NUR ---
NURSE NOTES: Dr Mata at bedside,updated re pt's status,ordered to decrease FIO2 to 70%,R.T notified.
--- NOTE | 2020-04-20 10:36 | Pulmonology Progress Note ---
Subjective ROS Limited/Unobtainable: Yes Interval Events: Intubated 03/28/20 Constitutional: Reports: other - on vent, sedated, no pressors ; Denies: fever HEENT: Repors: no symptoms Respiratory: Reports: dry cough, shortness of breath Cardiovascular: Reports: no symptoms Gastrointestinal/Abdominal: Denies: vomiting, diarrhea Psychiatric: Reports: other - NA Skin: Denies: rash Musculoskeletal: Reports: other - NA Allergies: Coded Allergies: No Known Allergies (Unverified , 02/05/20) Objective Last 24 Hour Vital Signs Date Time Temp Pulse Resp B/P (MAP) Pulse Ox O2 Delivery O2 Flow Rate FiO2 04/20/20 10:22 19 119/57 Mechanical Ventilator 70 04/20/20 10:00 19 119/57 Mechanical Ventilator 70 04/20/20 10:00 19 119/57 Mechanical Ventilator 70 04/20/20 09:27 19 110/59 Mechanical Ventilator 100 04/20/20 09:00 18 106/59 Mechanical Ventilator 100 04/20/20 09:00 18 106/59 Mechanical Ventilator 100 04/20/20 09:00 60 18 106/59 (75) 98 04/20/20 08:00 98.1 66 18 113/54 (73) 97 04/20/20 08:00 18 113/54 Mechanical Ventilator 100 04/20/20 08:00 18 113/54 Mechanical Ventilator 100 04/20/20 07:30 68 18 138/68 (91) 97 04/20/20 07:00 71 18 150/72 (98) 97 04/20/20 07:00 18 110/54 Mechanical Ventilator 100 04/20/20 07:00 18 110/54 Mechanical Ventilator 100 04/20/20 06:30 79 18 151/69 (96) 98 04/20/20 06:00 17 136/79 Mechanical Ventilator 100 04/20/20 06:00 17 136/79 Mechanical Ventilator 100 04/20/20 06:00 66 17 141/70 (93) 98 04/20/20 05:30 88 18 127/81 (96) 92 04/20/20 05:00 17 105/59 Mechanical Ventilator 100 04/20/20 05:00 17 105/59 Mechanical Ventilator 100 04/20/20 05:00 56 20 99/55 (70) 100 04/20/20 04:41 18 105/54 Mechanical Ventilator 100 04/20/20 04:30 57 17 105/54 (71) 100 04/20/20 04:00 98.5 58 18 98/53 (68) 100 04/20/20 04:00 13 94/53 Mechanical Ventilator 100 04/20/20 04:00 13 94/53 Mechanical Ventilator 100 04/20/20 04:00 Mechanical Ventilator 04/20/20 04:00 100 04/20/20 04:00 57 04/20/20 03:30 60 18 101/54 (70) 100 04/20/20 03:05 62 18 100 04/20/20 03:00 62 14 98/51 (67) 100 04/20/20 03:00 11 97/54 Mechanical Ventilator 100 04/20/20 03:00 11 97/54 Mechanical Ventilator 100 04/20/20 02:30 67 13 102/50 (67) 100 04/20/20 02:00 79 17 122/60 (80) 100 04/20/20 02:00 13 114/54 Mechanical Ventilator 100 04/20/20 02:00 13 114/54 Mechanical Ventilator 100 04/20/20 01:59 26 112/54 Mechanical Ventilator 100 04/20/20 01:30 91 18 120/55 (76) 100 04/20/20 01:00 106 22 145/68 (93) 100 04/20/20 01:00 21 128/56 Mechanical Ventilator 100 04/20/20 01:00 21 128/56 Mechanical Ventilator 100 04/20/20 00:39 25 169/75 Mechanical Ventilator 100 04/20/20 00:30 105 21 169/75 (106) 100 04/20/20 00:00 95 04/20/20 00:00 100 04/20/20 00:00 Mechanical Ventilator 04/20/20 00:00 21 166/73 Mechanical Ventilator 100 04/20/20 00:00 21 166/73 Mechanical Ventilator 100 04/20/20 00:00 98.6 104 20 178/74 (108) 100 04/19/20 23:32 163/88 04/19/20 23:30 73 17 163/88 (113) 100 04/19/20 23:14 15 105/64 Mechanical Ventilator 100 04/19/20 23:06 63 18 100 04/19/20 23:00 18 168/92 Mechanical Ventilator 100 04/19/20 23:00 18 168/92 Mechanical Ventilator 100 04/19/20 23:00 55 18 104/61 (75) 100 04/19/20 22:00 58 18 102/58 (73) 100 04/19/20 22:00 18 102/58 Mechanical Ventilator 100 04/19/20 22:00 18 102/58 Mechanical Ventilator 100 04/19/20 21:30 57 18 103/62 (76) 100 04/19/20 21:00 56 18 100/56 (71) 100 04/19/20 21:00 18 97/58 Mechanical Ventilator 100 04/19/20 21:00 18 97/58 Mechanical Ventilator 100 04/19/20 20:30 57 18 104/60 (75) 100 04/19/20 20:00 98.2 57 18 100/58 (72) 100 04/19/20 20:00 100 04/19/20 20:00 18 108/60 Mechanical Ventilator 100 04/19/20 20:00 18 108/60 Mechanical Ventilator 100 04/19/20 20:00 Mechanical Ventilator 04/19/20 20:00 58 04/19/20 19:30 60 18 99/57 (71) 100 04/19/20 19:00 58 18 99/57 (71) 100 04/19/20 19:00 59 18 100 04/19/20 19:00 18 101/56 Mechanical Ventilator 100 04/19/20 19:00 18 101/56 Mechanical Ventilator 100 04/19/20 18:00 19 99/54 Mechanical Ventilator 100 04/19/20 18:00 19 99/54 Mechanical Ventilator 100 04/19/20 18:00 74 18 98/54 (69) 100 04/19/20 17:20 19 155/57 Mechanical Ventilator 100 04/19/20 17:17 19 155/57 Mechanical Ventilator 100 04/19/20 17:00 110 21 155/57 (89) 97 04/19/20 16:00 98.9 77 18 147/72 (97) 100 04/19/20 16:00 Mechanical Ventilator 04/19/20 16:00 21 147/72 Mechanical Ventilator 100 04/19/20 16:00 100 04/19/20 16:00 88 04/19/20 15:00 96 20 100 04/19/20 15:00 76 18 104/50 (68) 100 2/17/21 15:00 18 104/50 Mechanical Ventilator 100 04/19/20 14:18 19 100/52 Mechanical Ventilator 100 04/19/20 14:18 9 100/59 Mechanical Ventilator 100 04/19/20 14:00 80 18 96/49 (65) 100 04/19/20 13:27 134 22 203/83 (123) 99 04/19/20 13:15 130 22 196/89 (124) 98 04/19/20 13:00 93 20 148/67 (94) 99 04/19/20 13:00 20 148/67 Mechanical Ventilator 100 04/19/20 13:00 20 148/67 Mechanical Ventilator 100 04/19/20 12:45 22 194/99 Mechanical Ventilator 100 04/19/20 12:44 197/94 04/19/20 12:15 21 146/90 Mechanical Ventilator 100 04/19/20 12:05 100 04/19/20 12:04 98.4 92 24 148/92 (110) 96 04/19/20 12:00 Mechanical Ventilator 04/19/20 12:00 21 148/92 Mechanical Ventilator 100 04/19/20 12:00 21 148/92 Mechanical Ventilator 100 04/19/20 12:00 94 04/19/20 11:16 107 23 100 04/19/20 11:00 82 24 146/79 (101) 91 04/19/20 11:00 19 146/79 Mechanical Ventilator 100 04/19/20 11:00 19 146/79 Mechanical Ventilator 100 04/19/20 10:57 18 156/87 Mechanical Ventilator 100 Intake and Output 04/19/20 04/20/20 18:59 06:59 Intake Total 1293.5 ml 1490 ml Output Total 960 ml 600 ml Balance 333.5 ml 890 ml Free Water 100 ml 60 ml IV Total 693.5 ml 830 ml Tube Feeding 500 ml 600 ml Output Urine Total 960 ml 570 ml Stool Total 30 ml # Bowel Movements 25 General Appearance: WD/WN, no acute distress HEENT: normocephalic, atraumatic Respiratory: chest wall non-tender Cardiovascular: normal rate, regular rhythm Abdomen: normal bowel sounds, soft, non tender, other - obese Laboratory Tests 04/19/20 12:41: POC Whole Blood Glucose 114H 04/20/20 02:35: White Blood Count 5.6, Red Blood Count 3.09L, Hemoglobin 8.8L, Hematocrit 28.1L, Mean Corpuscular Volume 91, Mean Corpuscular Hemoglobin 28.6, Mean Corpuscular Hemoglobin Concent 31.4L, Red Cell Distribution Width 17.3H, Platelet Count 267, Mean Platelet Volume 6.2L, Neutrophils (%) (Auto) , Lymphocytes (%) (Auto) , Mo nocytes (%) (Auto) , Eosinophils (%) (Auto) , Basophils (%) (Auto) , Differential Total Cells Counted 100, Neutrophils % (Manual) 84H, Lymphocytes % (Manual) 13L, Monocytes % (Manual) 1, Eosinophils % (Manual) 1, Basophils % (Manual) 1, Band Neutrophils 0, Platelet Estimate Adequate, Platelet Morphology Normal, Hypochromasia 2+, Anisocytosis 2+, Sodium Level 142, Potassium Level 4.2, Chloride Level 106, Carbon Dioxide Level 34H, Anion Gap 2L, Blood Urea Nitrogen 15, Creatinine 0.4L, Estimat Glomerular Filtration Rate > 60, Glucose Level 110H, Calcium Level 8.3L, Phosphorus Level 3.6, Magnesium Level 2.4, Total Bilirubin 0.5, Aspartate Amino Transf (AST/SGOT) 16, Alanine Aminotransferase (ALT/SGPT) 70, Alkaline Phosphatase 190H, C-Reactive Protein, Quantitative 1.2H, Pro-B-Type Natriuretic Peptide 932H, Total Protein 5.1L, Albumin 2.0L, Globulin 3.1, Albumin/Globulin Ratio 0.6L 04/20/20 07:21: POC Whole Blood Glucose 104 Current Medications Medications (Trade) Dose Ordered Sig/Dennis Route PRN Reason Start Time Stop Time Status Last Admin Dose Admin Acetaminophen (Tylenol) 650 mg Q4H PRN ORAL Temp >100.5 04/13/20 00:30 05/13/20 00:29 04/13/20 01:30 Bisacodyl (Dulcolax) 10 mg Q12H PRN RECTAL Constipation 03/18/20 16:45 06/16/20 16:44 Chlorhexidine Gluconate (Marlen-Hex 2%) 1 applic DAILY@1999 TOPIC 03/30/20 20:00 06/28/20 19:59 04/19/20 21:04 Dextrose (Dextrose 50%) 25 ml Q30M PRN IV Hypoglycemia 03/29/20 20:45 06/27/20 20:44 Dextrose (Dextrose 50%) 50 ml Q30M PRN IV Hypoglycemia 03/29/20 20:45 06/27/20 20:44 Enoxaparin Sodium (Lovenox) 80 mg EVERY 12 HOURS SUBQ 04/06/20 21:00 07/05/20 20:59 04/20/20 09:25 Fentanyl Citrate 250 ml @ 1 mls/hr Q24H IV 04/18/20 04:00 04/21/20 09:00 04/20/20 10:22 Hydralazine HCl (Apresoline) 10 mg Q4H PRN IV For High Blood Pressure 03/30/20 12:15 06/28/20 12:14 04/19/20 23:32 Insulin Aspart (NovoLOG) Q6HR SUBQ 03/30/20 00:00 06/28/20 00:00 04/18/20 18:11 Labetalol HCl (Normodyne) 10 mg Q4H PRN IV sbp greater tahtn 160 03/28/20 17:30 04/27/20 17:29 Lansoprazole (Prevacid) 15 mg Q12HR GT 04/20/20 21:00 05/20/20 20:59 Methylprednisolone Sodium Succinate (Solu-MEDROL) 20 mg Q12HR IVP 04/12/20 21:00 06/20/20 20:59 04/20/20 09:24 Metoclopramide HCl (Reglan) 10 mg Q6H IVP 03/30/20 15:00 04/29/20 14:59 04/20/20 09:24 Midazolam HCl 200 ml @ 0 mls/hr Q24H PRN IV Agitation 04/17/20 22:30 04/24/20 22:29 04/20/20 09:27 Pantoprazole (Protonix) 40 mg EVERY 12 HOURS IVP 04/01/20 21:00 04/20/20 11:00 04/20/20 09:47 Piperacillin Sod/ Tazobactam Sod 3.375 gm/Dextrose 110 ml @ 27.5 mls/hr EVERY 8 HOURS IVPB 04/17/20 22:00 04/21/20 23:59 04/20/20 05:08 Trimethoprim/ Sulfamethoxazole (Bactrim-DS) 1 tab Q24H ORAL 03/29/20 17:00 05/10/20 16:59 04/19/20 16:31 Assessment/Plan Assessment/Plan Assessment/Plan 1.COVID-19 pneumonia. - Completed specific therapies - On solumedrol 2. DVT ppx - on lovenox 3. Hypertension - no longer on meds - Not requiring pressors 4. Leukocytosis; - ID following - On abx - Budding yeast on blood CS 5. Elevated LFT - positive Hep C; treated in the past with IF 6. Respiratory failure -Intubated 03/28/20 -Family aware - Prognosis guarded - Vt 750; rate 18 -On sedation 7. Discussed with cardiology -No evidence for cardiac dysfunction or PE -tachycardic; will increase sedation 8. AMS -back on sedation - has apparent left arm paresis - Will consider CT brain when more stable S/p new PICC line On abx Slowly improving oxygenation Noted left upper extremity swelling. Has DVT; on full dose Lovenox Continue sedation, DC propofol given high triglycerides. Continue fentanyl and Versed. Saturations plummeted 04/12/20 when patient became agitated Now fully sedated on 80->100 ->90% FiO2 ; PEEP 5 Intubated now for 2-3 weeks Discussed tracheostomy with surgery Will wean down FiO2 John Mata MD Apr 20, 2020 10:36
--- NOTE | 2020-04-20 10:59 | Surgery Progress Note ---
Surgery Progress Note Subjective Additional Comments Patient still requiring significant ventilatory support. FiO2 90% PEEP of 5. Continue weaning not ready for trach Objective Last 24 Hour Vital Signs Date Time Temp Pulse Resp B/P (MAP) Pulse Ox O2 Delivery O2 Flow Rate FiO2 04/20/20 10:22 19 119/57 Mechanical Ventilator 70 04/20/20 10:00 19 119/57 Mechanical Ventilator 70 04/20/20 10:00 19 119/57 Mechanical Ventilator 70 04/20/20 09:27 19 110/59 Mechanical Ventilator 100 04/20/20 09:00 18 106/59 Mechanical Ventilator 100 04/20/20 09:00 18 106/59 Mechanical Ventilator 100 04/20/20 09:00 60 18 106/59 (75) 98 04/20/20 08:00 98.1 66 18 113/54 (73) 97 04/20/20 08:00 18 113/54 Mechanical Ventilator 100 04/20/20 08:00 18 113/54 Mechanical Ventilator 100 04/20/20 07:30 68 18 138/68 (91) 97 04/20/20 07:00 71 18 150/72 (98) 97 04/20/20 07:00 18 110/54 Mechanical Ventilator 100 04/20/20 07:00 18 110/54 Mechanical Ventilator 100 04/20/20 06:30 79 18 151/69 (96) 98 04/20/20 06:00 17 136/79 Mechanical Ventilator 100 04/20/20 06:00 17 136/79 Mechanical Ventilator 100 04/20/20 06:00 66 17 141/70 (93) 98 04/20/20 05:30 88 18 127/81 (96) 92 04/20/20 05:00 17 105/59 Mechanical Ventilator 100 04/20/20 05:00 17 105/59 Mechanical Ventilator 100 04/20/20 05:00 56 20 99/55 (70) 100 04/20/20 04:41 18 105/54 Mechanical Ventilator 100 04/20/20 04:30 57 17 105/54 (71) 100 04/20/20 04:00 98.5 58 18 98/53 (68) 100 04/20/20 04:00 13 94/53 Mechanical Ventilator 100 04/20/20 04:00 13 94/53 Mechanical Ventilator 100 04/20/20 04:00 Mechanical Ventilator 04/20/20 04:00 100 04/20/20 04:00 57 04/20/20 03:30 60 18 101/54 (70) 100 04/20/20 03:05 62 18 100 04/20/20 03:00 62 14 98/51 (67) 100 04/20/20 03:00 11 97/54 Mechanical Ventilator 100 04/20/20 03:00 11 97/54 Mechanical Ventilator 100 04/20/20 02:30 67 13 102/50 (67) 100 04/20/20 02:00 79 17 122/60 (80) 100 04/20/20 02:00 13 114/54 Mechanical Ventilator 100 04/20/20 02:00 13 114/54 Mechanical Ventilator 100 04/20/20 01:59 26 112/54 Mechanical Ventilator 100 04/20/20 01:30 91 18 120/55 (76) 100 04/20/20 01:00 106 22 145/68 (93) 100 04/20/20 01:00 21 128/56 Mechanical Ventilator 100 04/20/20 01:00 21 128/56 Mechanical Ventilator 100 04/20/20 00:39 25 169/75 Mechanical Ventilator 100 04/20/20 00:30 105 21 169/75 (106) 100 04/20/20 00:00 95 04/20/20 00:00 100 04/20/20 00:00 Mechanical Ventilator 04/20/20 00:00 21 166/73 Mechanical Ventilator 100 04/20/20 00:00 21 166/73 Mechanical Ventilator 100 04/20/20 00:00 98.6 104 20 178/74 (108) 100 04/19/20 23:32 163/88 04/19/20 23:30 73 17 163/88 (113) 100 04/19/20 23:14 15 105/64 Mechanical Ventilator 100 04/19/20 23:06 63 18 100 04/19/20 23:00 18 168/92 Mechanical Ventilator 100 04/19/20 23:00 18 168/92 Mechanical Ventilator 100 04/19/20 23:00 55 18 104/61 (75) 100 04/19/20 22:00 58 18 102/58 (73) 100 04/19/20 22:00 18 102/58 Mechanical Ventilator 100 04/19/20 22:00 18 102/58 Mechanical Ventilator 100 04/19/20 21:30 57 18 103/62 (76) 100 04/19/20 21:00 56 18 100/56 (71) 100 04/19/20 21:00 18 97/58 Mechanical Ventilator 100 04/19/20 21:00 18 97/58 Mechanical Ventilator 100 04/19/20 20:30 57 18 104/60 (75) 100 04/19/20 20:00 98.2 57 18 100/58 (72) 100 04/19/20 20:00 100 04/19/20 20:00 18 108/60 Mechanical Ventilator 100 04/19/20 20:00 18 108/60 Mechanical Ventilator 100 04/19/20 20:00 Mechanical Ventilator 04/19/20 20:00 58 04/19/20 19:30 60 18 99/57 (71) 100 04/19/20 19:00 58 18 99/57 (71) 100 04/19/20 19:00 59 18 100 04/19/20 19:00 18 101/56 Mechanical Ventilator 100 04/19/20 19:00 18 101/56 Mechanical Ventilator 100 04/19/20 18:00 19 99/54 Mechanical Ventilator 100 04/19/20 18:00 19 99/54 Mechanical Ventilator 100 04/19/20 18:00 74 18 98/54 (69) 100 04/19/20 17:20 19 155/57 Mechanical Ventilator 100 04/19/20 17:17 19 155/57 Mechanical Ventilator 100 04/19/20 17:00 110 21 155/57 (89) 97 04/19/20 16:00 98.9 77 18 147/72 (97) 100 04/19/20 16:00 Mechanical Ventilator 04/19/20 16:00 21 147/72 Mechanical Ventilator 100 04/19/20 16:00 100 04/19/20 16:00 88 04/19/20 15:00 96 20 100 04/19/20 15:00 76 18 104/50 (68) 100 04/19/20 15:00 18 104/50 Mechanical Ventilator 100 04/19/20 14:18 19 100/52 Mechanical Ventilator 100 04/19/20 14:18 9 100/59 Mechanical Ventilator 100 04/19/20 14:00 80 18 96/49 (65) 100 04/19/20 13:27 134 22 203/83 (123) 99 04/19/20 13:15 130 22 196/89 (124) 98 04/19/20 13:00 93 20 148/67 (94) 99 04/19/20 13:00 20 148/67 Mechanical Ventilator 100 04/19/20 13:00 20 148/67 Mechanical Ventilator 100 04/19/20 12:45 22 194/99 Mechanical Ventilator 100 04/19/20 12:44 197/94 04/19/20 12:15 21 146/90 Mechanical Ventilator 100 04/19/20 12:05 100 04/19/20 12:04 98.4 92 24 148/92 (110) 96 04/19/20 12:00 Mechanical Ventilator 04/19/20 12:00 21 148/92 Mechanical Ventilator 100 04/19/20 12:00 21 148/92 Mechanical Ventilator 100 04/19/20 12:00 94 04/19/20 11:16 107 23 100 04/19/20 11:00 82 24 146/79 (101) 91 04/19/20 11:00 19 146/79 Mechanical Ventilator 100 04/19/20 11:00 19 146/79 Mechanical Ventilator 100 I&O Intake and Output 04/19/20 04/20/20 19:00 07:00 Intake Total 1324 ml 1442 ml Output Total 940 ml 570 ml Balance 384 ml 872 ml Free Water 100 ml 60 ml IV Total 674 ml 832 ml Tube Feeding 550 ml 550 ml Output Urine Total 940 ml 540 ml Stool Total 30 ml # Bowel Movements 25 Dressing: saturated Cardiovascular: RSR, other Respiratory: decreased breath sounds, other Abdomen: soft, non-tender, present bowel sounds, non-distended Extremities: no tenderness, no cyanosis Laboratory Tests Test 04/19/20 12:41 04/20/20 02:35 04/20/20 07:21 POC Whole Blood Glucose 114 MG/DL (74-106) H 104 MG/DL (74-106) White Blood Count 5.6 K/UL (4.8-10.8) Red Blood Count 3.09 M/UL (4.70-6.10) L Hemoglobin 8.8 G/DL (14.2-18.0) L Hematocrit 28.1 % (42.0-52.0) L Mean Corpuscular Volume 91 FL (80-99) Mean Corpuscular Hemoglobin 28.6 PG (27.0-31.0) Mean Corpuscular Hemoglobin Concent 31.4 G/DL (32.0-36.0) L Red Cell Distribution Width 17.3 % (11.6-14.8) H Platelet Count 267 K/UL (150-450) Mean Platelet Volume 6.2 FL (6.5-10.1) L Neutrophils (%) (Auto) % (45.0-75.0) Lymphocytes (%) (Auto) % (20.0-45.0) Monocytes (%) (Auto) % (1.0-10.0) Eosinophils (%) (Auto) % (0.0-3.0) Basophils (%) (Auto) % (0.0-2.0) Differential Total Cells Counted 100 Neutrophils % (Manual) 84 % (45-75) H Lymphocytes % (Manual) 13 % (20-45) L Monocytes % (Manual) 1 % (1-10) Eosinophils % (Manual) 1 % (0-3) Basophils % (Manual) 1 % (0-2) Band Neutrophils 0 % (0-8) Platelet Estimate Adequate Platelet Morphology Normal Hypochromasia 2+ Anisocytosis 2+ Sodium Level 142 MMOL/L (136-145) Potassium Level 4.2 MMOL/L (3.5-5.1) Chloride Level 106 MMOL/L (98-107) Carbon Dioxide Level 34 MMOL/L (21-32) H Anion Gap 2 mmol/L (5-15) L Blood Urea Nitrogen 15 mg/dL (7-18) Creatinine 0.4 MG/DL (0.55-1.30) L Estimat Glomerular Filtration Rate > 60 mL/min (>60) Glucose Level 110 MG/DL (74-106) H Calcium Level 8.3 MG/DL (8.5-10.1) L Phosphorus Level 3.6 MG/DL (2.5-4.9) Magnesium Level 2.4 MG/DL (1.8-2.4) Total Bilirubin 0.5 MG/DL (0.2-1.0) Aspartate Amino Transf (AST/SGOT) 16 U/L (15-37) Alanine Aminotransferase (ALT/SGPT) 70 U/L (12-78) Alkaline Phosphatase 190 U/L (46-116) H C-Reactive Protein, Quantitative 1.2 mg/dL (0.00-0.90) H Pro-B-Type Natriuretic Peptide 932 pg/mL (0-125) H Total Protein 5.1 G/DL (6.4-8.2) L Albumin 2.0 G/DL (3.4-5.0) L Globulin 3.1 g/dL Albumin/Globulin Ratio 0.6 (1.0-2.7) L Plan Problems: (1) Pneumonia (2) Staphylococcus aureus bacteremia (3) COVID-19 virus infection (4) Chest pain (5) Hypertension (6) Dehydration (7) Electrolyte imbalance (8) DMII (diabetes mellitus, type 2) (9) Protein malnutrition (10) Respiratory insufficiency Assessment & Plan: 64-year-old male with respiratory insufficiency intubated in an intensive care unit. Patient has been unable to safely wean off ventilatory support. Surgery called to evaluate for tracheostomy. After careful evaluation patient is a candidate for tracheostomy. In the meantime will obtain consent. If consent obtained will proceed with scheduling. Thank you for your participation's care will follow recommendations Booker Rausch Apr 20, 2020 10:59
--- NOTE | 2020-04-20 12:29 | Nephrology Progress Note ---
Assessment/Plan Problem List: (1) Dehydration (2) Electrolyte imbalance (3) COVID-19 virus infection (4) Pneumonia (5) DMII (diabetes mellitus, type 2) (6) Protein malnutrition Assessment Azotemia, hypernatremia Hypoalbuminemia Staff Otilia bacteremia COVID-19 isolation, pneumonia, bilateral infiltrate Hypertension Diabetes mellitus History of smoking Plan April 20: Labs reviewed. Renal parameters stable. Patient remains full c ode. Intubated on ventilator with FiO2 currently at 70%. Continue per consultants. April 19: No labs drawn today. Remains full code on FiO2 of 100%. Continue per consultants. April 18: Status quo. Labs reviewed. Renal parameters stable. April 17: Status quo. Intubated on ventilator. Full code. Labs reviewed. Electrolytes and renal parameters stable. Continue per consultants. April 16: Girlfriend in the room. Patient awake. Intubated. Full code. Labs reviewed. Abnormal electrolyte addressed. Continue per consultants. April 15: Labs reviewed. Electrolytes and renal parameters stable. Patient full code. Continues to be intubated on ventilator. April 14: Status quo. Labs reviewed. Remains intubated on ventilator. Full code. Continue per consultants. April 13: Status quo. Labs reviewed. Renal parameters electrolytes stable. Continue per current treatment plan. April 12: On higher FiO2. Will resume Lasix daily. Continue to monitor electrolytes and renal parameters. Per consultants. April 11: FiO2 went up to 85%. Renal parameters and electrolytes reasonably well-maintained. Will monitor serum potassium. Will give IV Lasix. April 10: Status quo. Labs reviewed. Remains intubated on ventilator with FiO2 of 65%. Remains full code. Stable from renal standpoint to view. Repeat vitamin D level on April 08 pending April 09: Status quo. Labs reviewed. Stable from renal standpoint of view. Continue per consultants. April 08: Discussed with RN. Labs reviewed. Clinically improving. Requires lower PEEP. Continue per pulmonary. Continue to monitor renal parameters. April 07: Remains full code and on ventilator. Labs reviewed. Renal parameters and electrolytes stable. Continue per consultants. Blood pressure marginally improved. April 06: Full code. On ventilator. Blood pressure 80-90 systolic. IV Lasix discontinued. Free water through tube feeding ordered. Continue to monitor electrolytes and serum sodium. Down on fentanyl as possible. Discussed with PRIYANKA Brown. Clonidine patch discontinued. April 05: Status quo. Remains full code. Remains intubated. Labs reviewed. Renal parameters stable. Serum sodium 150 unchanged. Continue per consultants. April 04: Remains intubated and on ventilator. Remains full code. Labs reviewed. Serum sodium 150 unchanged. Renal parameters stable. Continue per ID and pulmonary. April 03: Intubated. On ventilator. Full code. Labs reviewed. Serum sodium 150 unchanged. Continue to monitor renal parameters. Continue per pulmonary and ID. April 02: Full code. On ventilator. Discussed with RN. Serum sodium slightly higher. Will cut down on IV Lasix. Continue per consultants. Continue to monitor renal parameters and electrolytes. April 01: Full code. Remains on ventilator. Labs reviewed. Stable from renal standpoint of view. Continue per consultants. March 31: Full code . Remains intubated on ventilator. Labs reviewed. Patient appears toxic. Discussed with RN. Maintenance IV discontinued. Medication list reviewed. Blood pressure medication stopped due to low blood pressure. Levemir insulin stopped. Continue monitor blood sugar and sliding scale insulin. March 30: Full code. On ventilator. Labs reviewed. Clonidine patch dose increased. Lasix increased. 3% saline 1 time ordered. Continue to monitor electrolytes and renal parameters. March 29: Remains full code. On mechanical ventilation. On tube feeding. Will DC TPN. Will start on maintenance IV fluid. Continue to monitor renal parameters. March 28: On BiPAP. Full code. On TPN. Labs reviewed. Discussed with pharmacy. Continue as is. Watch serum potassium. March 27: Remains on BiPAP. No chemistry panel done today. Full code. On TPN. Will check lab tomorrow. March 26: Remains on BiPAP. Remains on TPN. Labs reviewed. Electrolytes and chemistries within normal limits. Continue as is. March 25: Remains on TPN. Labs reviewed. Discussed with pharmacy. Change IV Protonix to p.o. Continue 3% saline infusion with Lasix. Patient full code. March 24: Continue to be on TPN. Labs are reviewed. Aim to collect electrolytes. Discussed with pharmacy. Continue current consultants. March 23: Continues to be on TPN. Labs reviewed. Electrolytes and biochemistry professor jose angel all acceptable. Discussed with pharmacy. Continue current management. March 22: On TPN. Labs reviewed. Low sodium noted. 3% saline to be continued. Continue to monitor electrolytes. Discussed with pharmacy. March 21: On TPN. Labs reviewed. Continue 3% saline and Lasix for mild hyponatremia. Continue TPN as these. Discussed with pharmacy. March 20: Remains on TPN. Labs reviewed. Serum sodium higher on IV Lasix and 3% saline infusion. Continue TPN as is. Continue to monitor renal parameters and electrolytes. Discussed with Dr. Mata March 19: Remains on TPN. Labs reviewed. Serum sodium 128. Will give 3% saline with IV Lasix. Continue to monitor electrolytes. No change in TPN composition. Discussed with pharmacy. March 18: Remains on TPN. Labs reviewed. Discussed with pharmacist. Will give 3 doses of IV Lasix 20 mg every 8 hours. Continue to monitor serum sodium electrolytes uric acid. White blood cells down. Continue per consultants. March 17: On TPN. Labs reviewed. Discussed with pharmacist. Sodium content increase. Continue to monitor CMP. Patient continues to have leukocytosis. March 16: On TPN. Labs reviewed. Discussed with pharmacist. Appropriate changes made. Continue to monitor electrolytes. March 15: Remains on TPN. Labs reviewed. Discussed with pharmacist. Continue per current management. March 14: Remains on TPN. Labs reviewed, stable. Vitamin D level low, replacement ordered. Continue to monitor electrolytes and renal parameters. March 13: Patient remains on TPN. Discussed with pharmacist. TPN's sodium content adjusted. Labs reviewed. Continue to monitor electrolytes. Blood pressure remains stable. Continue per consultants. March 12: Patient on TPN. Labs reviewed. CPK remains elevated. Abnormal electrolytes and high blood sugar discussed with pharmacist and TPN adjusted. Continue to monitor labs. Oral Protonix added. Ibuprofen discontinued. Can continue to monitor electrolytes and chemistries. Levemir for high blood sugar added. March 11: Patient on TPN. Labs as of 11:15 AM is still pending. Continue per current treatment plan. Will check labs and adjust TPN as needed. Continue per consultants. March 10: Patient on TPN. Labs reviewed. Electrolytes overall stable. CPK is elevated. Will monitor electrolyte, CPK level, lipid panel. Continue per consultants. Discussed with pharmacist. Discussed with RN. Nutritional evaluation noted. Previously: D5W 100 cc an hour Monitor electrolytes renal parameters TPN and Intralipid ordered Will follow Continue per consultants Dietary consult requested Subjective ROS Limited/Unobtainable: Yes Objective Objective Last 24 Hour Vital Signs Date Time Temp Pulse Resp B/P (MAP) Pulse Ox O2 Delivery O2 Flow Rate FiO2 04/20/20 12:00 18 115/56 Mechanical Ventilator 70 04/20/20 12:00 18 115/56 Mechanical Ventilator 70 04/20/20 12:00 98.0 65 18 115/56 (75) 95 04/20/20 11:20 62 18 100 04/20/20 11:00 62 18 123/64 (83) 95 04/20/20 11:00 18 123/64 Mechanical Ventilator 70 04/20/20 11:00 18 123/64 Mechanical Ventilator 70 04/20/20 10:22 19 119/57 Mechanical Ventilator 70 04/20/20 10:00 61 18 106/54 (71) 98 04/20/20 10:00 19 119/57 Mechanical Ventilator 70 04/20/20 10:00 19 119/57 Mechanical Ventilator 70 04/20/20 09:27 19 110/59 Mechanical Ventilator 100 04/20/20 09:00 18 106/59 Mechanical Ventilator 100 04/20/20 09:00 18 106/59 Mechanical Ventilator 100 04/20/20 09:00 60 18 106/59 (75) 98 04/20/20 08:00 98.1 66 18 113/54 (73) 97 04/20/20 08:00 18 113/54 Mechanical Ventilator 100 04/20/20 08:00 18 113/54 Mechanical Ventilator 100 04/20/20 07:30 68 18 138/68 (91) 97 04/20/20 07:20 61 18 100 04/20/20 07:00 71 18 150/72 (98) 97 04/20/20 07:00 18 110/54 Mechanical Ventilator 100 04/20/20 07:00 18 110/54 Mechanical Ventilator 100 04/20/20 06:30 79 18 151/69 (96) 98 04/20/20 06:00 17 136/79 Mechanical Ventilator 100 04/20/20 06:00 17 136/79 Mechanical Ventilator 100 04/20/20 06:00 66 17 141/70 (93) 98 04/20/20 05:30 88 18 127/81 (96) 92 04/20/20 05:00 17 105/59 Mechanical Ventilator 100 04/20/20 05:00 17 105/59 Mechanical Ventilator 100 04/20/20 05:00 56 20 99/55 (70) 100 04/20/20 04:41 18 105/54 Mechanical Ventilator 100 04/20/20 04:30 57 17 105/54 (71) 100 04/20/20 04:00 98.5 58 18 98/53 (68) 100 04/20/20 04:00 13 94/53 Mechanical Ventilator 100 04/20/20 04:00 13 94/53 Mechanical Ventilator 100 04/20/20 04:00 Mechanical Ventilator 04/20/20 04:00 100 04/20/20 04:00 57 04/20/20 03:30 60 18 101/54 (70) 100 04/20/20 03:05 62 18 100 04/20/20 03:00 62 14 98/51 (67) 100 04/20/20 03:00 11 97/54 Mechanical Ventilator 100 04/20/20 03:00 11 97/54 Mechanical Ventilator 100 04/20/20 02:30 67 13 102/50 (67) 100 04/20/20 02:00 79 17 122/60 (80) 100 04/20/20 02:00 13 114/54 Mechanical Ventilator 100 04/20/20 02:00 13 114/54 Mechanical Ventilator 100 04/20/20 01:59 26 112/54 Mechanical Ventilator 100 04/20/20 01:30 91 18 120/55 (76) 100 04/20/20 01:00 106 22 145/68 (93) 100 04/20/20 01:00 21 128/56 Mechanical Ventilator 100 04/20/20 01:00 21 128/56 Mechanical Ventilator 100 04/20/20 00:39 25 169/75 Mechanical Ventilator 100 04/20/20 00:30 105 21 169/75 (106) 100 04/20/20 00:00 95 04/20/20 00:00 100 04/20/20 00:00 Mechanical Ventilator 04/20/20 00:00 21 166/73 Mechanical Ventilator 100 04/20/20 00:00 21 166/73 Mechanical Ventilator 100 04/20/20 00:00 98.6 104 20 178/74 (108) 100 04/19/20 23:32 163/88 04/19/20 23:30 73 17 163/88 (113) 100 04/19/20 23:14 15 105/64 Mechanical Ventilator 100 04/19/20 23:06 63 18 100 04/19/20 23:00 18 168/92 Mechanical Ventilator 100 04/19/20 23:00 18 168/92 Mechanical Ventilator 100 04/19/20 23:00 55 18 104/61 (75) 100 04/19/20 22:00 58 18 102/58 (73) 100 04/19/20 22:00 18 102/58 Mechanical Ventilator 100 04/19/20 22:00 18 102/58 Mechanical Ventilator 100 04/19/20 21:30 57 18 103/62 (76) 100 04/19/20 21:00 56 18 100/56 (71) 100 04/19/20 21:00 18 97/58 Mechanical Ventilator 100 04/19/20 21:00 18 97/58 Mechanical Ventilator 100 04/19/20 20:30 57 18 104/60 (75) 100 04/19/20 20:00 98.2 57 18 100/58 (72) 100 04/19/20 20:00 100 04/19/20 20:00 18 108/60 Mechanical Ventilator 100 04/19/20 20:00 18 108/60 Mechanical Ventilator 100 04/19/20 20:00 Mechanical Ventilator 04/19/20 20:00 58 04/19/20 19:30 60 18 99/57 (71) 100 04/19/20 19:00 58 18 99/57 (71) 100 04/19/20 19:00 59 18 100 04/19/20 19:00 18 101/56 Mechanical Ventilator 100 04/19/20 19:00 18 101/56 Mechanical Ventilator 100 04/19/20 18:00 19 99/54 Mechanical Ventilator 100 04/19/20 18:00 19 99/54 Mechanical Ventilator 100 04/19/20 18:00 74 18 98/54 (69) 100 04/19/20 17:20 19 155/57 Mechanical Ventilator 100 04/19/20 17:17 19 155/57 Mechanical Ventilator 100 04/19/20 17:00 110 21 155/57 (89) 97 04/19/20 16:00 98.9 77 18 147/72 (97) 100 04/19/20 16:00 Mechanical Ventilator 04/19/20 16:00 21 147/72 Mechanical Ventilator 100 04/19/20 16:00 100 04/19/20 16:00 88 04/19/20 15:00 96 20 100 04/19/20 15:00 76 18 104/50 (68) 100 04/19/20 15:00 18 104/50 Mechanical Ventilator 100 04/19/20 14:18 19 100/52 Mechanical Ventilator 100 04/19/20 14:18 9 100/59 Mechanical Ventilator 100 04/19/20 14:00 80 18 96/49 (65) 100 04/19/20 13:27 134 22 203/83 (123) 99 04/19/20 13:15 130 22 196/89 (124) 98 04/19/20 13:00 93 20 148/67 (94) 99 04/19/20 13:00 20 148/67 Mechanical Ventilator 100 04/19/20 13:00 20 148/67 Mechanical Ventilator 100 04/19/20 12:45 22 194/99 Mechanical Ventilator 100 04/19/20 12:44 197/94 Intake and Output 04/19/20 04/20/20 19:00 07:00 Intake Total 1324 ml 1442 ml Output Total 940 ml 570 ml Balance 384 ml 872 ml Free Water 100 ml 60 ml IV Total 674 ml 832 ml Tube Feeding 550 ml 550 ml Output Urine Total 940 ml 540 ml Stool Total 30 ml # Bowel Movements 25 Current Medications Medications (Trade) Dose Ordered Sig/Dennis Route PRN Reason Start Time Stop Time Status Last Admin Dose Admin Acetaminophen (Tylenol) 650 mg Q4H PRN ORAL Temp >100.5 04/13/20 00:30 05/13/20 00:29 04/13/20 01:30 Bisacodyl (Dulcolax) 10 mg Q12H PRN RECTAL Constipation 03/18/20 16:45 06/16/20 16:44 Chlorhexidine Gluconate (Marlen-Hex 2%) 1 applic DAILY@2000 TOPIC 03/30/20 20:00 06/28/20 19:59 04/19/20 21:04 Dextrose (Dextrose 50%) 25 ml Q30M PRN IV Hypoglycemia 03/29/20 20:45 06/27/20 20:44 Dextrose (Dextrose 50%) 50 ml Q30M PRN IV Hypoglycemia 03/29/20 20:45 06/27/20 20:44 Enoxaparin Sodium (Lovenox) 80 mg EVERY 12 HOURS SUBQ 04/06/20 21:00 07/05/20 20:59 04/20/20 09:25 Fentanyl Citrate 250 ml @ 1 mls/hr Q24H IV 04/18/20 04:00 04/21/20 09:00 04/20/20 10:22 Hydralazine HCl (Apresoline) 10 mg Q4H PRN IV For High Blood Pressure 03/30/20 12:15 06/28/20 12:14 04/19/20 23:32 Insulin Aspart (NovoLOG) Q6HR SUBQ 03/30/20 00:00 06/28/20 00:00 04/18/20 18:11 Labetalol HCl (Normodyne) 10 mg Q4H PRN IV sbp greater tahtn 160 03/28/20 17:30 04/27/20 17:29 Lansoprazole (Prevacid) 15 mg Q12HR GT 04/20/20 21:00 05/20/20 20:59 Methylprednisolone Sodium Succinate (Solu-MEDROL) 20 mg Q12HR IVP 04/12/20 21:00 06/20/20 20:59 04/20/20 09:24 Metoclopramide HCl (Reglan) 10 mg Q6H IVP 03/30/20 15:00 04/29/20 14:59 04/20/20 09:24 Midazolam HCl 200 ml @ 0 mls/hr Q24H PRN IV Agitation 04/17/20 22:30 04/24/20 22:29 04/20/20 09:27 Piperacillin Sod/ Tazobactam Sod 3.375 gm/Dextrose 110 ml @ 27.5 mls/hr EVERY 8 HOURS IVPB 04/17/20 22:00 04/21/20 23:59 04/20/20 05:08 Trimethoprim/ Sulfamethoxazole (Bactrim-DS) 1 tab Q24H ORAL 03/29/20 17:00 05/10/20 16:59 04/19/20 16:31 Laboratory Tests 04/19/20 12:41: POC Whole Blood Glucose 114H 04/20/20 02:35: White Blood Count 5.6, Red Blood Count 3.09L, Hemoglobin 8.8L, Hematocrit 28.1L, Mean Corpuscular Volume 91, Mean Corpuscular Hemoglobin 28.6, Mean Corpuscular Hemoglobin Concent 31.4L, Red Cell Distribution Width 17.3H, Platelet Count 267, Mean Platelet Volume 6.2L, Neutrophils (%) (Auto) , Lymphocytes (%) (Auto) , Monocytes (%) (Auto) , Eosinophils (%) (Auto) , Basophils (%) (Auto) , Differential Total Cells Counted 100, Neutrophils % (Manual) 84H, Lymphocytes % (Manual) 13L, Monocytes % (Manual) 1, Eosinophils % (Manual) 1, Basophils % (Manual) 1, Band Neutrophils 0, Platelet Estimate Adequate, Platelet Morphology Normal, Hypochromasia 2+, Anisocytosis 2+, Sodium Level 142, Potassium Level 4.2, Chloride Level 106, Carbon Dioxide Level 34H, Anion Gap 2L, Blood Urea Nitrogen 15, Creatinine 0.4L, Estimat Glomerular Filtration Rate > 60, Glucose Level 110H, Calcium Level 8.3L, Phosphorus Level 3.6, Magnesium Level 2.4, Total Bilirubin 0.5, Aspartate Amino Transf (AST/SGOT) 16, Alanine Aminotransferase (ALT/SGPT) 70, Alkaline Phosphatase 190H, C-Reactive Protein, Quantitative 1.2H, Pro-B-Type Natriuretic Peptide 932H, Total Protein 5.1L, Albumin 2.0L, Globulin 3.1, Albumin/Globulin Ratio 0.6L 04/20/20 07:21: POC Whole Blood Glucose 104 Height (Feet): 5 Height (Inches): 10.00 Weight (Pounds): 240 General Appearance: no apparent distress EENT: other - Intubated on ventilator Cardiovascular: normal rate Respiratory/Chest: decreased breath sounds Abdomen: distended Rubin Cooper MD Apr 20, 2020 12:29
--- NOTE | 2020-04-20 13:34 | NUR ---
NURSE NOTES: Oral care done,oral/ETT secretions suctioned PRN.,pt with scanty amount of sticky secretions.
--- NOTE | 2020-04-20 15:00 | NUR ---
NURSE NOTES: Bed bath given,pulled up ,turned and repositioned.
[2020-04-20] MEDS: Bactrim-DS 1 tab ORAL SCH (17:04)
--- NOTE | 2020-04-20 18:00 | NUR ---
NURSE NOTES: Pt with episode of desaturation in the 80's, on resp distress,ETT secretions suctioned ,R.T.notified,Fio2 increased to 100%
[2020-04-20] MEDS ORDERED: Tubing IV Secondary IV ONE (18:14)
[2020-04-20] MEDS ORDERED: NS 275ml ONE (18:14)
--- NOTE | 2020-04-20 19:25 | NUR ---
NURSE HAND-OFF REPORT: Latest Vital Signs: Temperature 98.0 , Pulse 53 , B/P 106 /53 , Respiratory Rate 18 , O2 SAT 95 , Mechanical Ventilator, O2 Flow Rate . Vital Sign Comment: [unstable EKG Rhythm: Sinus Rhythm Rhythm change?: N MD Notified?: N Response: Message left await call Latest Hassan Fall Score: 50 Fall Risk: High Risk Safety Measures: Call light Within Reach, Bed Alarm Zone 3, Side Rails Side Rails x3, Bed position Low and Locked. Fall Precautions: Yellow Socks Yellow Gown Door Sign Patient Fall Education Report given to .Jose Rafael Bajwa RN
--- NOTE | 2020-04-20 19:28 | Cardiology Progress Note ---
Assessment/Plan Assessment/Plan Acute covid 19 pneumonia hypoxemia infiltrate bilat bacteremia hypernatremia / hyponatremia mild abn lfts tachy post intubation fever fungemia dvt upper ext now on 100 % fio2 , 2-[address] fry discussing trach but pt oxygen requirement are too high still full sedated with fentanyl and versed not febrile now hypoxemia unlikely cardiac related tube feeding being tolerated echo reviewed last on 04/06 still shows normal lv function no valve pathology cxr still showing bilateral lower lobe infiltrates as of04/18 tele reviewed sinus remains critical now is on full dose anticoag due to dvt ue s/p diuresis of about 7 liter over 48 hour dcd 04/17 cr is stable bp fluctuating d/w rn tried weang gabriela but at 80% got agitated and needed to go back up to 100% nothing seems to ahve change otherwise labs cxr in am nd one dose of lasix this evening covid pcr negative , however considering that it took 3 tests to finally initially identify his covid infection i am not sure if we can trust Subjective ROS Limited/Unobtainable: Yes Subjective per rn Pt sedated orally intubated ,ETT 8,lip line 24,,AC 18,TV ,750,FIO2 90%,PeeP5,noted no resp distress ,no signs of discomfort presented,S-R on the monitor ,OGT feeding Glucerna 1.2 at 50 ml/hr in placed per auscultation,no residual Objective Last 24 Hour Vital Signs Date Time Temp Pulse Resp B/P (MAP) Pulse Ox O2 Delivery O2 Flow Rate FiO2 04/20/20 18:46 18 117/60 Mechanical Ventilator 100 04/20/20 18:45 18 117/60 Mechanical Ventilator 100 04/20/20 18:06 61 18 138/65 (89) 97 04/20/20 18:00 18 138/65 Mechanical Ventilator 100 04/20/20 18:00 18 138/65 Mechanical Ventilator 100 04/20/20 17:00 69 18 131/60 (83) 90 04/20/20 17:00 18 131/60 Mechanical Ventilator 70 04/20/20 17:00 18 131/60 Mechanical Ventilator 70 04/20/20 16:01 98.0 04/20/20 16:00 90 04/20/20 16:00 73 04/20/20 16:00 70 18 124/61 (82) 89 04/20/20 16:00 18 124/61 Mechanical Ventilator 70 04/20/20 16:00 18 124/61 Mechanical Ventilator 70 04/20/20 16:00 Mechanical Ventilator 04/20/20 15:15 58 18 108/57 (74) 98 04/20/20 15:10 59 18 70 04/20/20 15:00 18 108/57 Mechanical Ventilator 70 04/20/20 15:00 18 108/57 Mechanical Ventilator 70 04/20/20 14:36 18 109/57 Mechanical Ventilator 70 04/20/20 14:00 60 18 109/57 (74) 98 04/20/20 14:00 18 109/57 Mechanical Ventilator 70 04/20/20 14:00 18 109/57 Mechanical Ventilator 70 04/20/20 13:00 18 110/59 Mechanical Ventilator 70 04/20/20 13:00 18 110/59 Mechanical Ventilator 70 04/20/20 13:00 60 18 110/59 (76) 97 04/20/20 12:00 100 04/20/20 12:00 63 04/20/20 12:00 18 115/56 Mechanical Ventilator 70 04/20/20 12:00 18 115/56 Mechanical Ventilator 70 04/20/20 12:00 98.0 65 18 115/56 (75) 95 04/20/20 12:00 Mechanical Ventilator 04/20/20 11:20 62 18 70 04/20/20 11:00 62 18 123/64 (83) 95 04/20/20 11:00 18 123/64 Mechanical Ventilator 70 04/20/20 11:00 18 123/64 Mechanical Ventilator 70 04/20/20 10:22 19 119/57 Mechanical Ventilator 70 04/20/20 10:00 61 18 106/54 (71) 98 04/20/20 10:00 19 119/57 Mechanical Ventilator 70 04/20/20 10:00 19 119/57 Mechanical Ventilator 70 04/20/20 09:27 19 110/59 Mechanical Ventilator 100 04/20/20 09:00 18 106/59 Mechanical Ventilator 100 04/20/20 09:00 18 106/59 Mechanical Ventilator 100 04/20/20 09:00 60 18 106/59 (75) 98 04/20/20 08:00 61 04/20/20 08:00 Mechanical Ventilator 04/20/20 08:00 98.1 66 18 113/54 (73) 97 2/18/21 08:00 100 04/20/20 08:00 18 113/54 Mechanical Ventilator 100 04/20/20 08:00 18 113/54 Mechanical Ventilator 100 04/20/20 07:30 68 18 138/68 (91) 97 04/20/20 07:20 61 18 100 04/20/20 07:00 71 18 150/72 (98) 97 04/20/20 07:00 18 110/54 Mechanical Ventilator 100 04/20/20 07:00 18 110/54 Mechanical Ventilator 100 04/20/20 06:30 79 18 151/69 (96) 98 04/20/20 06:00 17 136/79 Mechanical Ventilator 100 04/20/20 06:00 17 136/79 Mechanical Ventilator 100 04/20/20 06:00 66 17 141/70 (93) 98 04/20/20 05:30 88 18 127/81 (96) 92 04/20/20 05:00 17 105/59 Mechanical Ventilator 100 04/20/20 05:00 17 105/59 Mechanical Ventilator 100 04/20/20 05:00 56 20 99/55 (70) 100 04/20/20 04:41 18 105/54 Mechanical Ventilator 100 04/20/20 04:30 57 17 105/54 (71) 100 04/20/20 04:00 98.5 58 18 98/53 (68) 100 04/20/20 04:00 13 94/53 Mechanical Ventilator 100 04/20/20 04:00 13 94/53 Mechanical Ventilator 100 04/20/20 04:00 Mechanical Ventilator 04/20/20 04:00 100 04/20/20 04:00 57 04/20/20 03:30 60 18 101/54 (70) 100 04/20/20 03:05 62 18 100 04/20/20 03:00 62 14 98/51 (67) 100 04/20/20 03:00 11 97/54 Mechanical Ventilator 100 04/20/20 03:00 11 97/54 Mechanical Ventilator 100 04/20/20 02:30 67 13 102/50 (67) 100 04/20/20 02:00 79 17 122/60 (80) 100 04/20/20 02:00 13 114/54 Mechanical Ventilator 100 04/20/20 02:00 13 114/54 Mechanical Ventilator 100 04/20/20 01:59 26 112/54 Mechanical Ventilator 100 04/20/20 01:30 91 18 120/55 (76) 100 04/20/20 01:00 106 22 145/68 (93) 100 04/20/20 01:00 21 128/56 Mechanical Ventilator 100 04/20/20 01:00 21 128/56 Mechanical Ventilator 100 04/20/20 00:39 25 169/75 Mechanical Ventilator 100 04/20/20 00:30 105 21 169/75 (106) 100 04/20/20 00:00 95 04/20/20 00:00 100 04/20/20 00:00 Mechanical Ventilator 04/20/20 00:00 21 166/73 Mechanical Ventilator 100 04/20/20 00:00 21 166/73 Mechanical Ventilator 100 04/20/20 00:00 98.6 104 20 178/74 (108) 100 04/19/20 23:32 163/88 04/19/20 23:30 73 17 163/88 (113) 100 04/19/20 23:14 15 105/64 Mechanical Ventilator 100 04/19/20 23:06 63 18 100 04/19/20 23:00 18 168/92 Mechanical Ventilator 100 04/19/20 23:00 18 168/92 Mechanical Ventilator 100 04/19/20 23:00 55 18 104/61 (75) 100 04/19/20 22:00 58 18 102/58 (73) 100 04/19/20 22:00 18 102/58 Mechanical Ventilator 100 04/19/20 22:00 18 102/58 Mechanical Ventilator 100 04/19/20 21:30 57 18 103/62 (76) 100 04/19/20 21:00 56 18 100/56 (71) 100 04/19/20 21:00 18 97/58 Mechanical Ventilator 100 04/19/20 21:00 18 97/58 Mechanical Ventilator 100 04/19/20 20:30 57 18 104/60 (75) 100 04/19/20 20:00 98.2 57 18 100/58 (72) 100 04/19/20 20:00 100 04/19/20 20:00 18 108/60 Mechanical Ventilator 100 04/19/20 20:00 18 108/60 Mechanical Ventilator 100 04/19/20 20:00 Mechanical Ventilator 04/19/20 20:00 58 2/17/21 19:30 60 18 99/57 (71) 100 General Appearance: no apparent distress, on vent, patient on isolation, isolation precautions Extremities: no swelling Intake and Output 04/19/20 04/20/20 19:00 07:00 Intake Total 1324 ml 1492 ml Output Total 940 ml 595 ml Balance 384 ml 897 ml Free Water 100 ml 60 ml IV Total 674 ml 832 ml Tube Feeding 550 ml 600 ml Output Urine Total 940 ml 565 ml Stool Total 30 ml # Bowel Movements 25 Laboratory Tests Test 04/20/20 02:35 04/20/20 07:21 04/20/20 12:35 White Blood Count 5.6 K/UL (4.8-10.8) Red Blood Count 3.09 M/UL (4.70-6.10) L Hemoglobin 8.8 G/DL (14.2-18.0) L Hematocrit 28.1 % (42.0-52.0) L Mean Corpuscular Volume 91 FL (80-99) Mean Corpuscular Hemoglobin 28.6 PG (27.0-31.0) Mean Corpuscular Hemoglobin Concent 31.4 G/DL (32.0-36.0) L Red Cell Distribution Width 17.3 % (11.6-14.8) H Platelet Count 267 K/UL (150-450) Mean Platelet Volume 6.2 FL (6.5-10.1) L Neutrophils (%) (Auto) % (45.0-75.0) Lymphocytes (%) (Auto) % (20.0-45.0) Monocytes (%) (Auto) % (1.0-10.0) Eosinophils (%) (Auto) % (0.0-3.0) Basophils (%) (Auto) % (0.0-2.0) Differential Total Cells Counted 100 Neutrophils % (Manual) 84 % (45-75) H Lymphocytes % (Manual) 13 % (20-45) L Monocytes % (Manual) 1 % (1-10) Eosinophils % (Manual) 1 % (0-3) Basophils % (Manual) 1 % (0-2) Band Neutrophils 0 % (0-8) Platelet Estimate Adequate Platelet Morphology Normal Hypochromasia 2+ Anisocytosis 2+ Sodium Level 142 MMOL/L (136-145) Potassium Level 4.2 MMOL/L (3.5-5.1) Chloride Level 106 MMOL/L (98-107) Carbon Dioxide Level 34 MMOL/L (21-32) H Anion Gap 2 mmol/L (5-15) L Blood Urea Nitrogen 15 mg/dL (7-18) Creatinine 0.4 MG/DL (0.55-1.30) L Estimat Glomerular Filtration Rate > 60 mL/min (>60) Glucose Level 110 MG/DL (74-106) H Calcium Level 8.3 MG/DL (8.5-10.1) L Phosphorus Level 3.6 MG/DL (2.5-4.9) Magnesium Level 2.4 MG/DL (1.8-2.4) Total Bilirubin 0.5 MG/DL (0.2-1.0) Aspartate Amino Transf (AST/SGOT) 16 U/L (15-37) Alanine Aminotransferase (ALT/SGPT) 70 U/L (12-78) Alkaline Phosphatase 190 U/L (46-116) H C-Reactive Protein, Quantitative 1.2 mg/dL (0.00-0.90) H Pro-B-Type Natriuretic Peptide 932 pg/mL (0-125) H Total Protein 5.1 G/DL (6.4-8.2) L Albumin 2.0 G/DL (3.4-5.0) L Globulin 3.1 g/dL Albumin/Globulin Ratio 0.6 (1.0-2.7) L POC Whole Blood Glucose 104 MG/DL (74-106) 150 MG/DL (74-106) H Objective pt in covid 19 isoaltion with acute infection Manan Awan MD Apr 20, 2020 19:28
--- NOTE | 2020-04-20 19:40 | NUR ---
NURSE NOTES: PATIENT SEDATED, ON ETT TO VENT, AC 18/TV750/FIO2 100%/PEEP 5, O2 SATURATION 95% NOTED, OGT INTACT AND PATENT, ONGOING GLUCERNA 1.5 AT 50ML/HR, NO RESIDUE NOTED, KEPT HOB 30 DEGREES AND ASPIRATION PRECAUTION, ABDOMEN SOFT, NON TENDER, RECTAL TUBE INTACT AND PATENT, F/C INTACT AND PATENT, NAYELI COLOR URINE OUTED, PICC LINE TO RIGHT UPPER ARM, INTACT AND PATENT, ONGOING FENTANYL 300MCG/HR, VERSED 20MG/HR VIA PICC LINE, KEPT RASS SCORE -2, 1 POINT SOFT RESTRAINT TO RIGHT WRIST STATUS, ON P200 BED, MADE LOWER BED POSITION, ON BED ALARM AND LOCKED, WILL CONTINUE TO MONITOR.
[2020-04-20] MEDS: Dyna-Hex 2% Top Sol 2oz TOPIC SCH (19:49)
[2020-04-20] MEDS: Lansoprazole 15mg cap GT SCH (20:48)
--- NOTE | 2020-04-20 21:59 | NUR ---
NURSE NOTES: PATIENT OPEN EYES TO NAME, ABLE TO TOUCH ENDOTUBE, SECURED RESTRAINT, WILL CONTINUE TO MONITOR.
[2020-04-21] VITALS (57 sets, daily range): BP systolic 102–219; BP diastolic 52–98
--- NOTE | 2020-04-21 00:10 | NUR ---
NURSE NOTES: RASS SCORE -3 NOTED, DECREASED FENTANYL DRIP AND VERSED DRIP, WILL CONTINUE TO MONITOR.
[2020-04-21] MEDS: Versed 100mg/NS 200ml 200 ML IV PRN ×5 (01:31→22:31)
--- NOTE | 2020-04-21 02:05 | NUR ---
NURSE NOTES: PATIENT AWOKE, AGITATED, INCREASED FENTANYL AND VERSED DRIP PER PROTOCOLS, WILL CONTINUE TO MONITOR.
[2020-04-21] MEDS: Metoclopramide 10mg/2ml Inj IVP SCH ×4 (02:32→20:30)
--- NOTE | 2020-04-21 04:05 | NUR ---
NURSE NOTES: MORNING CARE WAS DONE, RECTAL TUBE INTACT, RASS SCORE -2 WITH FENTANYL 260MCG/HR AND VERSED 16MG/HR AT THIS TIME, WILL CONTINUE TO MONITOR.
--- NOTE | 2020-04-21 05:20 | NUR ---
NURSE NOTES: GIVEN APRESOLIN 10MG IVP DUE TO BP 176/86 MMHG PRN ORDER, UNABLE TO ENDOTUBE SUCTION THAT CALLED RT.
[2020-04-21] MEDS: Piperacillin/Tazobactam 3.375 GM in D5W 110 ML IVPB SCH ×3 (05:21→22:15)
[2020-04-21] MEDS: fentaNYL 2500mcg/NS 250ml 250 ML IV SCH ×3 (05:23→21:06)
[2020-04-21] MEDS: NovoLOG Insulin Flexpen SUBQ SCH ×4 (05:43→23:42)
[2020-04-21] MEDS: Labetalol 5mg/ml 20ml vial IV PRN (06:02)
--- NOTE | 2020-04-21 06:02 | NUR ---
NURSE NOTES: RT CAME, SUCTIONED, SBP OVER 200MMHG, HR 120'S/MIN ST NOTED THAT GIVEN LABETALOL 10MG BY IVP PRN ORDERED, WILL CONTINUE TO MONITOR.
[2020-04-21 06:06] LABS: ANION GAP 5 mmol/L (5-15); BLOOD UREA NITROGEN 17 mg/dL (7-18); CALCIUM 8.6 MG/DL (8.5-10.1); CARBON DIOXIDE 33 MMOL/L (21-32); CHLORIDE 103 MMOL/L (98-107); CREATININE 0.4 MG/DL (0.55-1.30); POTASSIUM 4.2 MMOL/L (3.5-5.1); SODIUM 141 MMOL/L (136-145)
--- NOTE | 2020-04-21 06:34 | NUR ---
NURSE NOTES: CALLED DR. CARLOS REGARDING PEAK OVER 70, SBP OVER 200 MMHG THAT LEFT MESSAGE AWAIT CALL.
--- NOTE | 2020-04-21 06:40 | NUR ---
NURSE NOTES: CALLED BACK FROM DR. CARLOS THAT RECEIVED ORDER, CALLED RT AND RADIOLOGY DEPT.
--- NOTE | 2020-04-21 07:06 | NUR ---
CASE MANAGEMENT:REVIEW 04/21/20 SI: COVID PNEUMONIA~INTUBATED 98.2 126 25 201/89 93% ON VENT SUPPORT W/100% FIO2 PEEP~5.0 CO2+33 IS: IV LASIX QD FENTANYL GTT VERSED GTT IV ZOSYN Q8HRS IV SOLUMEDROL 20MG Q12 LOVENOX SQ Q12 PREVACID NG Q12 BACTRIM NG Q24 IV REGLAN Q6HRS : ICU STATUS DCP: LIVES IN A HOTEL PLAN: NON VIOLENT RESTRAINTS CHEST XRAY
--- NOTE | 2020-04-21 07:10 | NUR ---
NURSE HAND-OFF REPORT: Latest Vital Signs: Temperature 98.2 , Pulse 107 , B/P 160 /68 , Respiratory Rate 28 , O2 SAT 93 , Mechanical Ventilator, O2 Flow Rate . Vital Sign Comment: EKG Rhythm: Sinus Tachycardia Rhythm change?: N Notified?: N -Dr.Toluie INTERIANO Response: Message left await call Latest Hassan Fall Score: 50 Fall Risk: High Risk Safety Measures: Call light Within Reach, Bed Alarm Zone 3, Side Rails Side Rails x3, Bed position Low and Locked. Fall Precautions: Yellow Socks Yellow Gown Door Sign Patient Fall Education Report given to PRIYANKA VIGIL.
--- NOTE | 2020-04-21 07:30 | NUR ---
NURSE NOTES: Report received from PRIYANKA Mantilla. Pt sedated, RASS -2, orally intubated with ETT 8.0, 26cm @ the lip line. Vent settings: AC 18, TV 750, Fio2 100%, Peep 5. Ventilator continues to alarm, peak pressures are high. RT made aware; pt lavaged. SR on the monitor. OGT intact; tube feeds currently on hold d/t pt's condition. Brownlee cath draining jeff colored urine with gravity to urometer. Rectal tube draining liquid brown stools. Skin warm and flushed and edematous. ALBERT PICC line intact,on Fentanyl drip at 300 mcg /hr and Versed at 20 mg/hr. Pt received and maintained on Right soft wrist restraint for safety, to prevent pt from pulling out tubing. Bed locked and in lowest position. Will resume plan of care
--- NOTE | 2020-04-21 08:22 | NUR ---
RADIOLOGY DEPT., CHEST X-RAY PERFORMED BY ARJUN BLOCK
--- NOTE | 2020-04-21 09:00 | NUR ---
NURSE NOTES: Tube feeding resumed.
[2020-04-21] MEDS: Solu-MEDROL 40mg Inj IVP SCH ×2 (09:50→20:31)
--- NOTE | 2020-04-21 09:50 | NUR ---
NURSE NOTES: Dr Mata on the unit making his rounds. Updated him on pt's current condition. Informed him of respiratory issues and ABG results. No ventilator setting changes at this time.
[2020-04-21] MEDS: Lansoprazole 15mg cap GT SCH ×2 (09:51→20:30)
[2020-04-21] MEDS: Enoxaparin 80mg Inj SUBQ SCH ×2 (09:54→20:31)
--- NOTE | 2020-04-21 10:24 | Pulmonology Progress Note ---
Subjective ROS Limited/Unobtainable: Yes Interval Events: Intubated 03/28/20 Constitutional: Reports: other - on vent, sedated, no pressors ; Denies: fever HEENT: Repors: no symptoms Respiratory: Reports: dry cough, shortness of breath Cardiovascular: Reports: no symptoms Gastrointestinal/Abdominal: Denies: vomiting, diarrhea Psychiatric: Reports: other - NA Skin: Denies: rash Musculoskeletal: Reports: other - NA Allergies: Coded Allergies: No Known Allergies (Unverified , 02/05/20) Objective Last 24 Hour Vital Signs Date Time Temp Pulse Resp B/P (MAP) Pulse Ox O2 Delivery O2 Flow Rate FiO2 04/21/20 10:00 82 21 108/53 (71) 89 04/21/20 09:30 82 18 102/52 (69) 90 04/21/20 09:00 93 20 109/59 (76) 94 04/21/20 08:43 90 04/21/20 08:30 94 20 148/72 (97) 94 04/21/20 08:00 100 04/21/20 08:00 Mechanical Ventilator 04/21/20 08:00 98.9 94 19 136/65 (88) 94 04/21/20 07:37 19 131/60 Mechanical Ventilator 100 04/21/20 07:30 97 24 131/60 (83) 94 04/21/20 07:00 107 28 160/68 (98) 93 04/21/20 07:00 101 22 100 04/21/20 07:00 28 160/68 Mechanical Ventilator 100 04/21/20 06:45 113 29 216/90 (132) 93 04/21/20 06:30 108 29 207/86 (126) 93 04/21/20 06:28 108 27 193/91 (125) 93 04/21/20 06:15 101 29 193/80 (117) 93 04/21/20 06:02 124 201/89 04/21/20 06:00 112 21 171/72 (105) 91 112 04/21/20 06:00 21 171/72 Mechanical Ventilator 100 04/21/20 06:00 126 25 201/89 (126) 92 04/21/20 05:57 121 26 211/76 (121) 92 04/21/20 05:54 119 27 219/76 (123) 93 04/21/20 05:48 107 24 210/76 (120) 93 04/21/20 05:45 104 24 211/94 (133) 93 04/21/20 05:45 24 211/94 Mechanical Ventilator 100 04/21/20 05:42 100 24 199/77 (117) 94 04/21/20 05:35 86 19 191/78 (115) 95 04/21/20 05:30 19 185/75 Mechanical Ventilator 100 04/21/20 05:30 74 19 185/75 (111) 96 04/21/20 05:23 18 176/86 Mechanical Ventilator 100 04/21/20 05:20 176/86 04/21/20 05:15 67 16 176/86 (116) 97 67 04/21/20 05:00 63 18 170/73 (105) 96 04/21/20 05:00 18 170/73 Mechanical Ventilator 100 04/21/20 04:57 63 19 158/74 (102) 97 04/21/20 04:45 64 17 164/82 (109) 97 04/21/20 04:30 64 16 156/72 (100) 97 04/21/20 04:30 16 156/72 Mechanical Ventilator 100 04/21/20 04:15 62 18 139/63 (88) 96 04/21/20 04:15 18 139/63 Mechanical Ventilator 100 04/21/20 04:00 67 04/21/20 04:00 Mechanical Ventilator 04/21/20 04:00 98.2 67 18 150/67 (94) 96 04/21/20 04:00 18 150/67 Mechanical Ventilator 100 04/21/20 04:00 100 04/21/20 03:45 72 17 164/71 (102) 96 04/21/20 03:30 80 22 151/98 (115) 95 04/21/20 03:30 22 151/98 Mechanical Ventilator 100 04/21/20 03:30 69 18 100 04/21/20 03:15 77 18 174/95 (121) 98 04/21/20 03:00 85 20 190/89 (122) 96 04/21/20 03:00 20 190/89 Mechanical Ventilator 100 04/21/20 03:00 20 190/89 Mechanical Ventilator 100 04/21/20 02:45 82 21 173/91 (118) 94 04/21/20 02:30 20 177/86 Mechanical Ventilator 100 04/21/20 02:30 79 20 177/86 (116) 95 04/21/20 02:15 77 20 175/79 (111) 95 04/21/20 02:00 22 181/81 Mechanical Ventilator 100 04/21/20 02:00 22 181/81 Mechanical Ventilator 100 04/21/20 02:00 75 22 184/83 (116) 95 04/21/20 01:45 71 18 173/81 (111) 95 04/21/20 01:45 18 173/81 Mechanical Ventilator 100 04/21/20 01:45 18 173/81 Mechanical Ventilator 100 04/21/20 01:31 20 167/81 Mechanical Ventilator 100 04/21/20 01:30 18 164/80 Mechanical Ventilator 100 04/21/20 01:30 70 18 164/80 (108) 96 04/21/20 01:15 19 167/81 Mechanical Ventilator 100 04/21/20 01:15 73 19 167/81 (109) 96 04/21/20 01:00 70 18 168/81 (110) 96 04/21/20 01:00 18 168/61 Mechanical Ventilator 100 04/21/20 00:45 17 149/71 Mechanical Ventilator 100 04/21/20 00:45 68 17 149/71 (97) 97 04/21/20 00:30 56 18 120/57 (78) 96 04/21/20 00:15 56 18 115/59 (77) 96 04/21/20 00:00 50 04/21/20 00:00 97.8 50 18 116/61 (79) 95 04/21/20 00:00 18 116/61 Mechanical Ventilator 100 04/21/20 00:00 18 116/61 Mechanical Ventilator 100 04/21/20 00:00 Mechanical Ventilator 04/21/20 00:00 100 04/20/20 23:45 52 18 112/53 (72) 94 04/20/20 23:45 18 112/53 Mechanical Ventilator 100 04/20/20 23:30 52 18 112/53 (72) 95 04/20/20 23:30 18 112/53 Mechanical Ventilator 100 04/20/20 23:15 56 18 107/52 (70) 93 04/20/20 23:15 18 107/52 Mechanical Ventilator 100 04/20/20 23:00 18 104/51 Mechanical Ventilator 100 04/20/20 23:00 18 104/51 Mechanical Ventilator 100 04/20/20 23:00 55 18 104/51 (68) 93 04/20/20 22:47 59 18 100 04/20/20 22:00 65 16 125/60 (81) 95 04/20/20 22:00 16 125/60 Mechanical Ventilator 100 04/20/20 22:00 16 125/60 Mechanical Ventilator 100 04/20/20 21:00 60 18 148/66 (93) 96 04/20/20 21:00 18 148/66 Mechanical Ventilator 100 04/20/20 21:00 18 148/66 Mechanical Ventilator 100 04/20/20 20:00 97.8 55 18 125/66 (85) 96 04/20/20 20:00 Mechanical Ventilator 04/20/20 20:00 18 125/66 Mechanical Ventilator 100 04/20/20 20:00 18 125/66 Mechanical Ventilator 100 04/20/20 20:00 100 04/20/20 19:30 55 04/20/20 19:15 54 18 100 04/20/20 19:00 53 18 106/53 (70) 95 04/20/20 19:00 18 106/53 Mechanical Ventilator 100 04/20/20 19:00 18 100/53 Mechanical Ventilator 100 04/20/20 18:46 18 117/60 Mechanical Ventilator 100 04/20/20 18:45 18 117/60 Mechanical Ventilator 100 04/20/20 18:06 61 18 138/65 (89) 97 04/20/20 18:00 18 138/65 Mechanical Ventilator 100 04/20/20 18:00 18 138/65 Mechanical Ventilator 100 04/20/20 17:00 69 18 131/60 (83) 90 04/20/20 17:00 18 131/60 Mechanical Ventilator 70 04/20/20 17:00 18 131/60 Mechanical Ventilator 70 04/20/20 16:01 98.0 04/20/20 16:00 90 04/20/20 16:00 73 04/20/20 16:00 70 18 124/61 (82) 89 04/20/20 16:00 18 124/61 Mechanical Ventilator 70 04/20/20 16:00 18 124/61 Mechanical Ventilator 70 04/20/20 16:00 Mechanical Ventilator 04/20/20 15:15 58 18 108/57 (74) 98 04/20/20 15:10 59 18 70 04/20/20 15:00 18 108/57 Mechanical Ventilator 70 04/20/20 15:00 18 108/57 Mechanical Ventilator 70 04/20/20 14:36 18 109/57 Mechanical Ventilator 70 04/20/20 14:00 60 18 109/57 (74) 98 04/20/20 14:00 18 109/57 Mechanical Ventilator 70 04/20/20 14:00 18 109/57 Mechanical Ventilator 70 04/20/20 13:00 18 110/59 Mechanical Ventilator 70 04/20/20 13:00 18 110/59 Mechanical Ventilator 70 04/20/20 13:00 60 18 110/59 (76) 97 04/20/20 12:00 100 04/20/20 12:00 63 04/20/20 12:00 18 115/56 Mechanical Ventilator 70 04/20/20 12:00 18 115/56 Mechanical Ventilator 70 04/20/20 12:00 98.0 65 18 115/56 (75) 95 04/20/20 12:00 Mechanical Ventilator 04/20/20 11:20 62 18 70 04/20/20 11:00 62 18 123/64 (83) 95 04/20/20 11:00 18 123/64 Mechanical Ventilator 70 04/20/20 11:00 18 123/64 Mechanical Ventilator 70 Intake and Output 04/20/20 04/21/20 19:00 07:00 Intake Total 1700 ml 1415.25 ml Output Total 380 ml 2010 ml Balance 1320 ml -594.75 ml Free Water 200 ml IV Total 840 ml 815.25 ml Tube Feeding 600 ml 550 ml Other 60 ml 50 ml Output Urine Total 355 ml 1980 ml Stool Total 25 ml 30 ml General Appearance: WD/WN, no acute distress HEENT: normocephalic, atraumatic Respiratory: chest wall non-tender Cardiovascular: normal rate, regular rhythm Abdomen: normal bowel sounds, soft, non tender, other - obese Laboratory Tests 04/20/20 12:35: POC Whole Blood Glucose 150H 04/21/20 03:45: Sodium Level 141, Potassium Level 4.2, Chloride Level 103, Carbon Dioxide Level 33H, Anion Gap 5, Blood Urea Nitrogen 17, Creatinine 0.4L, Estimat Glomerular Filtration Rate > 60, Glucose Level 126H, Calcium Level 8.6, Magnesium Level 2.4, Pro-B-Type Natriuretic Peptide 528H 04/21/20 08:16: Arterial Blood pH 7.338L, Arterial Blood Partial Pressure CO2 66.1*H, Arterial Blood Partial Pressure O2 225.9H, Arterial Blood HCO3 34.7H, Arterial Blood Oxygen Saturation 98.4, Arterial Blood Base Excess 7.2H, Shemar Test Positive Current Medications Medications (Trade) Dose Ordered Sig/Dennis Route PRN Reason Start Time Stop Time Status Last Admin Dose Admin Acetaminophen (Tylenol) 650 mg Q4H PRN ORAL Temp >100.5 04/13/20 00:30 05/13/20 00:29 04/13/20 01:30 Bisacodyl (Dulcolax) 10 mg Q12H PRN RECTAL Constipation 03/18/20 16:45 06/16/20 16:44 Chlorhexidine Gluconate (Marlen-Hex 2%) 1 applic DAILY@2000 TOPIC 03/30/20 20:00 06/28/20 19:59 04/20/20 19:49 Dextrose (Dextrose 50%) 25 ml Q30M PRN IV Hypoglycemia 03/29/20 20:45 06/27/20 20:44 Dextrose (Dextrose 50%) 50 ml Q30M PRN IV Hypoglycemia 03/29/20 20:45 06/27/20 20:44 Enoxaparin Sodium (Lovenox) 80 mg EVERY 12 HOURS SUBQ 04/06/20 21:00 07/05/20 20:59 04/21/20 09:54 Hydralazine HCl (Apresoline) 10 mg Q4H PRN IV For High Blood Pressure 03/30/20 12:15 06/28/20 12:14 04/21/20 05:20 Insulin Aspart (NovoLOG) Q6HR SUBQ 03/30/20 00:00 06/28/20 00:00 04/20/20 23:34 Labetalol HCl (Normodyne) 10 mg Q4H PRN IV sbp greater tahtn 160 03/28/20 17:30 04/27/20 17:29 04/21/20 06:02 Lansoprazole (Prevacid) 15 mg Q12HR GT 04/20/20 21:00 05/20/20 20:59 04/21/20 09:51 Methylprednisolone Sodium Succinate (Solu-MEDROL) 20 mg Q12HR IVP 04/12/20 21:00 06/20/20 20:59 04/21/20 09:50 Metoclopramide HCl (Reglan) 10 mg Q6H IVP 03/30/20 15:00 04/29/20 14:59 04/21/20 09:50 Midazolam HCl 200 ml @ 0 mls/hr Q24H PRN IV Agitation 04/17/20 22:30 04/24/20 22:29 04/21/20 07:37 Piperacillin Sod/ Tazobactam Sod 3.375 gm/Dextrose 110 ml @ 27.5 mls/hr EVERY 8 HOURS IVPB 04/17/20 22:00 04/21/20 23:59 04/21/20 05:21 Trimethoprim/ Sulfamethoxazole (Bactrim-DS) 1 tab Q24H ORAL 03/29/20 17:00 05/10/20 16:59 04/20/20 17:04 Assessment/Plan Assessment/Plan Assessment/Plan 1.COVID-19 pneumonia. - Completed specific therapies - On solumedrol 2. DVT ppx - on lovenox 3. Hypertension - no longer on meds - Not requiring pressors 4. Leukocytosis; - ID following - On abx - Budding yeast on blood CS 5. Elevated LFT - positive Hep C; treated in the past with IF 6. Respiratory failure -Intubated 03/28/20 -Family aware - Prognosis guarded - Vt 750; rate 18 -On sedation 7. Discussed with cardiology -No evidence for cardiac dysfunction or PE -tachycardic; will increase sedation 8. AMS -back on sedation - has apparent left arm paresis - Will consider CT brain when more stable S/p new PICC line On abx Slowly improving oxygenation Noted left upper extremity swelling. Has DVT; on full dose Lovenox Continue sedation, DC propofol given high triglycerides. Continue fentanyl and Versed. Saturations plummeted again last night 04/20/20 when patient became agitated Now fully sedated on 80->100 ->90% FiO2 ; PEEP 5 Intubated now for 2-3 weeks Discussed tracheostomy with surgery Will wean down FiO2 as tolerated CXR shows bilateral interstitial changes? fibrosis? John Mata MD Apr 21, 2020 10:24
--- NOTE | 2020-04-21 11:14 | NUR ---
NURSE NOTES: Pt turned and repositioned for comfort. FiO2 90%
--- NOTE | 2020-04-21 12:34 | NUR ---
NURSE NOTES: Despite sedation on Fentanyl 300mcg/hr and Versed 20mg/hr, pt remains restless at times, opening eyes spontaneously and triggering the vent alarms. Reached out to Dr Mata for orders; waiting call back.
--- NOTE | 2020-04-21 12:42 | Surgery Progress Note ---
Surgery Progress Note Subjective Additional Comments failing weaning no n/v labs noted possible consideration for trach cont weaning Objective Last 24 Hour Vital Signs Date Time Temp Pulse Resp B/P (MAP) Pulse Ox O2 Delivery O2 Flow Rate FiO2 04/21/20 12:40 22 154/69 Mechanical Ventilator 90 04/21/20 12:30 22 151/73 Mechanical Ventilator 90 04/21/20 12:00 Mechanical Ventilator 04/21/20 12:00 90 04/21/20 12:00 19 132/67 Mechanical Ventilator 90 04/21/20 12:00 19 132/67 Mechanical Ventilator 90 04/21/20 12:00 76 04/21/20 12:00 98.9 76 21 132/67 (88) 88 04/21/20 11:00 18 119/59 Mechanical Ventilator 90 04/21/20 11:00 19 119/59 Mechanical Ventilator 90 04/21/20 11:00 76 19 119/59 (79) 87 04/21/20 10:00 82 21 108/53 (71) 89 04/21/20 10:00 20 120/58 Mechanical Ventilator 90 04/21/20 10:00 20 120/58 Mechanical Ventilator 90 04/21/20 09:30 82 18 102/52 (69) 90 04/21/20 09:00 93 20 109/59 (76) 94 04/21/20 09:00 19 102/53 Mechanical Ventilator 90 04/21/20 09:00 19 102/53 Mechanical Ventilator 90 04/21/20 08:43 90 04/21/20 08:30 94 20 148/72 (97) 94 04/21/20 08:00 100 04/21/20 08:00 Mechanical Ventilator 04/21/20 08:00 22 143/69 Mechanical Ventilator 90 04/21/20 08:00 22 143/69 Mechanical Ventilator 100 04/21/20 08:00 94 04/21/20 08:00 98.9 94 19 136/65 (88) 94 04/21/20 07:37 19 131/60 Mechanical Ventilator 100 04/21/20 07:30 97 24 131/60 (83) 94 04/21/20 07:00 107 28 160/68 (98) 93 04/21/20 07:00 101 22 100 04/21/20 07:00 28 160/68 Mechanical Ventilator 100 04/21/20 06:45 113 29 216/90 (132) 93 04/21/20 06:30 108 29 207/86 (126) 93 04/21/20 06:28 108 27 193/91 (125) 93 04/21/20 06:15 101 29 193/80 (117) 93 04/21/20 06:02 124 201/89 04/21/20 06:00 112 21 171/72 (105) 91 112 04/21/20 06:00 21 171/72 Mechanical Ventilator 100 04/21/20 06:00 126 25 201/89 (126) 92 04/21/20 05:57 121 26 211/76 (121) 92 04/21/20 05:54 119 27 219/76 (123) 93 04/21/20 05:48 107 24 210/76 (120) 93 04/21/20 05:45 104 24 211/94 (133) 93 04/21/20 05:45 24 211/94 Mechanical Ventilator 100 04/21/20 05:42 100 24 199/77 (117) 94 04/21/20 05:35 86 19 191/78 (115) 95 04/21/20 05:30 19 185/75 Mechanical Ventilator 100 04/21/20 05:30 74 19 185/75 (111) 96 04/21/20 05:23 18 176/86 Mechanical Ventilator 100 04/21/20 05:20 176/86 04/21/20 05:15 67 16 176/86 (116) 97 67 04/21/20 05:00 63 18 170/73 (105) 96 04/21/20 05:00 18 170/73 Mechanical Ventilator 100 04/21/20 04:57 63 19 158/74 (102) 97 04/21/20 04:45 64 17 164/82 (109) 97 04/21/20 04:30 64 16 156/72 (100) 97 04/21/20 04:30 16 156/72 Mechanical Ventilator 100 04/21/20 04:15 62 18 139/63 (88) 96 04/21/20 04:15 18 139/63 Mechanical Ventilator 100 04/21/20 04:00 67 04/21/20 04:00 Mechanical Ventilator 04/21/20 04:00 98.2 67 18 150/67 (94) 96 04/21/20 04:00 18 150/67 Mechanical Ventilator 100 04/21/20 04:00 100 04/21/20 03:45 72 17 164/71 (102) 96 04/21/20 03:30 80 22 151/98 (115) 95 04/21/20 03:30 22 151/98 Mechanical Ventilator 100 04/21/20 03:30 69 18 100 04/21/20 03:15 77 18 174/95 (121) 98 04/21/20 03:00 85 20 190/89 (122) 96 04/21/20 03:00 20 190/89 Mechanical Ventilator 100 04/21/20 03:00 20 190/89 Mechanical Ventilator 100 04/21/20 02:45 82 21 173/91 (118) 94 04/21/20 02:30 20 177/86 Mechanical Ventilator 100 04/21/20 02:30 79 20 177/86 (116) 95 04/21/20 02:15 77 20 175/79 (111) 95 04/21/20 02:00 22 181/81 Mechanical Ventilator 100 04/21/20 02:00 22 181/81 Mechanical Ventilator 100 04/21/20 02:00 75 22 184/83 (116) 95 04/21/20 01:45 71 18 173/81 (111) 95 04/21/20 01:45 18 173/81 Mechanical Ventilator 100 04/21/20 01:45 18 173/81 Mechanical Ventilator 100 04/21/20 01:31 20 167/81 Mechanical Ventilator 100 04/21/20 01:30 18 164/80 Mechanical Ventilator 100 04/21/20 01:30 70 18 164/80 (108) 96 04/21/20 01:15 19 167/81 Mechanical Ventilator 100 04/21/20 01:15 73 19 167/81 (109) 96 04/21/20 01:00 70 18 168/81 (110) 96 04/21/20 01:00 18 168/61 Mechanical Ventilator 100 04/21/20 00:45 17 149/71 Mechanical Ventilator 100 04/21/20 00:45 68 17 149/71 (97) 97 04/21/20 00:30 56 18 120/57 (78) 96 04/21/20 00:15 56 18 115/59 (77) 96 04/21/20 00:00 50 04/21/20 00:00 97.8 50 18 116/61 (79) 95 04/21/20 00:00 18 116/61 Mechanical Ventilator 100 04/21/20 00:00 18 116/61 Mechanical Ventilator 100 04/21/20 00:00 Mechanical Ventilator 04/21/20 00:00 100 04/20/20 23:45 52 18 112/53 (72) 94 04/20/20 23:45 18 112/53 Mechanical Ventilator 100 04/20/20 23:30 52 18 112/53 (72) 95 04/20/20 23:30 18 112/53 Mechanical Ventilator 100 04/20/20 23:15 56 18 107/52 (70) 93 04/20/20 23:15 18 107/52 Mechanical Ventilator 100 04/20/20 23:00 18 104/51 Mechanical Ventilator 100 04/20/20 23:00 18 104/51 Mechanical Ventilator 100 04/20/20 23:00 55 18 104/51 (68) 93 04/20/20 22:47 59 18 100 04/20/20 22:00 65 16 125/60 (81) 95 04/20/20 22:00 16 125/60 Mechanical Ventilator 100 04/20/20 22:00 16 125/60 Mechanical Ventilator 100 04/20/20 21:00 60 18 148/66 (93) 96 04/20/20 21:00 18 148/66 Mechanical Ventilator 100 04/20/20 21:00 18 148/66 Mechanical Ventilator 100 04/20/20 20:00 97.8 55 18 125/66 (85) 96 04/20/20 20:00 Mechanical Ventilator 04/20/20 20:00 18 125/66 Mechanical Ventilator 100 04/20/20 20:00 18 125/66 Mechanical Ventilator 100 04/20/20 20:00 100 04/20/20 19:30 55 04/20/20 19:15 54 18 100 04/20/20 19:00 53 18 106/53 (70) 95 04/20/20 19:00 18 106/53 Mechanical Ventilator 100 04/20/20 19:00 18 100/53 Mechanical Ventilator 100 04/20/20 18:46 18 117/60 Mechanical Ventilator 100 04/20/20 18:45 18 117/60 Mechanical Ventilator 100 04/20/20 18:06 61 18 138/65 (89) 97 04/20/20 18:00 18 138/65 Mechanical Ventilator 100 04/20/20 18:00 18 138/65 Mechanical Ventilator 100 04/20/20 17:00 69 18 131/60 (83) 90 04/20/20 17:00 18 131/60 Mechanical Ventilator 70 04/20/20 17:00 18 131/60 Mechanical Ventilator 70 04/20/20 16:01 98.0 04/20/20 16:00 90 04/20/20 16:00 73 04/20/20 16:00 70 18 124/61 (82) 89 04/20/20 16:00 18 124/61 Mechanical Ventilator 70 04/20/20 16:00 18 124/61 Mechanical Ventilator 70 04/20/20 16:00 Mechanical Ventilator 04/20/20 15:15 58 18 108/57 (74) 98 04/20/20 15:10 59 18 70 04/20/20 15:00 18 108/57 Mechanical Ventilator 70 04/20/20 15:00 18 108/57 Mechanical Ventilator 70 04/20/20 14:36 18 109/57 Mechanical Ventilator 70 04/20/20 14:00 60 18 109/57 (74) 98 04/20/20 14:00 18 109/57 Mechanical Ventilator 70 04/20/20 14:00 18 109/57 Mechanical Ventilator 70 04/20/20 13:00 18 110/59 Mechanical Ventilator 70 04/20/20 13:00 18 110/59 Mechanical Ventilator 70 04/20/20 13:00 60 18 110/59 (76) 97 I&O Intake and Output 04/20/20 04/21/20 19:00 07:00 Intake Total 1700 ml 1415.25 ml Output Total 380 ml 2010 ml Balance 1320 ml -594.75 ml Free Water 200 ml IV Total 840 ml 815.25 ml Tube Feeding 600 ml 550 ml Other 60 ml 50 ml Output Urine Total 355 ml 1980 ml Stool Total 25 ml 30 ml Dressing: saturated Cardiovascular: RSR, other Respiratory: decreased breath sounds, other Abdomen: soft, non-tender, present bowel sounds Extremities: no tenderness, no cyanosis Laboratory Tests Test 04/21/20 03:45 04/21/20 08:16 Sodium Level 141 MMOL/L (136-145) Potassium Level 4.2 MMOL/L (3.5-5.1) Chloride Level 103 MMOL/L (98-107) Carbon Dioxide Level 33 MMOL/L (21-32) H Anion Gap 5 mmol/L (5-15) Blood Urea Nitrogen 17 mg/dL (7-18) Creatinine 0.4 MG/DL (0.55-1.30) L Estimat Glomerular Filtration Rate > 60 mL/min (>60) Glucose Level 126 MG/DL (74-106) H Calcium Level 8.6 MG/DL (8.5-10.1) Magnesium Level 2.4 MG/DL (1.8-2.4) Pro-B-Type Natriuretic Peptide 528 pg/mL (0-125) H Arterial Blood pH 7.338 (7.350-7.450) Arterial Blood Partial Pressure CO2 66.1 mmHg (35.0-45.0) *H Arterial Blood Partial Pressure O2 225.9 mmHg (75.0-100.0) H Arterial Blood HCO3 34.7 mmol/L (22.0-26.0) H Arterial Blood Oxygen Saturation 98.4 % (95-100) Arterial Blood Base Excess 7.2 (-2-2) H Shemar Test Positive Plan Problems: (1) Pneumonia (2) Staphylococcus aureus bacteremia (3) COVID-19 virus infection (4) Chest pain (5) Hypertension (6) Dehydration (7) Electrolyte imbalance (8) DMII (diabetes mellitus, type 2) (9) Protein malnutrition (10) Respiratory insufficiency Assessment & Plan: 64-year-old male with respiratory insufficiency intubated in an intensive care unit. Patient has been unable to safely wean off ventilatory support. Surgery called to evaluate for tracheostomy. After careful evaluation patient is a candidate for tracheostomy. In the meantime will obtain consent. If consent obtained will proceed with scheduling. Thank you for your participation's care will follow recommendations Booker Rausch Apr 21, 2020 12:42
[2020-04-21] MEDS: Morphine Sulfate 4mg/ml Inj IVP PRN ×2 (12:54→22:14)
--- NOTE | 2020-04-21 13:26 | NUR ---
NURSE NOTES: Morphine 4mg given for agitation, despite maxed on sedation of fentanyl and versed. Pt appears calmer at this time.
--- NOTE | 2020-04-21 13:40 | Diagnostic Imaging Report ---
Indication: Dyspnea Technique: One view of the chest Comparison: 04/18/2020 Findings: Stable tube and line positions. Bilateral infiltrates are unchanged Impression: Unchanged, over one day, findings as above.
--- NOTE | 2020-04-21 14:01 | Nephrology Progress Note ---
Assessment/Plan Problem List: (1) Dehydration (2) Electrolyte imbalance (3) COVID-19 virus infection (4) Pneumonia (5) DMII (diabetes mellitus, type 2) (6) Protein malnutrition Assessment Azotemia, hypernatremia Hypoalbuminemia Staff Otilia bacteremia COVID-19 isolation, pneumonia, bilateral infiltrate Hypertension Diabetes mellitus History of smoking Plan April 21: No CHEM panel drawn today. FiO2 60%. Patient full code. Continue per consultants. April 20: Labs reviewed. Renal parameters stable. Patient remains full code. Intubated on ventilator with FiO2 currently at 70%. Continue per consultants. April 19: No labs drawn today. Remains full code on FiO2 of 100%. Continue per consultants. April 18: Status quo. Labs reviewed. Renal parameters stable. April 17: Status quo. Intubated on ventilator. Full code. Labs reviewed. Electrolytes and renal parameters stable. Continue per consultants. April 16: Girlfriend in the room. Patient awake. Intubated. Full code. Labs reviewed. Abnormal electrolyte addressed. Continue per consultants. April 15: Labs reviewed. Electrolytes and renal parameters stable. Patient full code. Continues to be intubated on ventilator. April 14: Status quo. Labs reviewed. Remains intubated on ventilator. Full code. Continue per consultants. April 13: Status quo. Labs reviewed. Renal parameters electrolytes stable. Continue per current treatment plan. April 12: On higher FiO2. Will resume Lasix daily. Continue to monitor electrolytes and renal parameters. Per consultants. April 11: FiO2 went up to 85%. Renal parameters and electrolytes reasonably well-maintained. Will monitor serum potassium. Will give IV Lasix. April 10: Status quo. Labs reviewed. Remains intubated on ventilator with FiO2 of 65%. Remains full code. Stable from renal standpoint to view. Repeat vitamin D level on April 08 pending April 09: Status quo. Labs reviewed. Stable from renal standpoint of view. Continue per consultants. April 08: Discussed with RN. Labs reviewed. Clinically improving. Requires lower PEEP. Continue per pulmonary. Continue to monitor renal parameters. April 07: Remains full code and on ventilator. Labs reviewed. Renal parameters and electrolytes stable. Continue per consultants. Blood pressure marginally improved. April 06: Full code. On ventilator. Blood pressure 80-90 systolic. IV Lasix discontinued. Free water through tube feeding ordered. Continue to monitor electrolytes and serum sodium. Down on fentanyl as possible. Discussed with RN Kevin. Clonidine patch discontinued. April 05: Status quo. Remains full code. Remains intubated. Labs reviewed. Renal parameters stable. Serum sodium 150 unchanged. Continue per consultants. April 04: Remains intubated and on ventilator. Remains full code. Labs reviewed. Serum sodium 150 unchanged. Renal parameters stable. Continue per ID and pulmonary. April 03: Intubated. On ventilator. Full code. Labs reviewed. Serum sodium 150 unchanged. Continue to monitor renal parameters. Continue per pulmonary and ID. April 02: Full code. On ventilator. Discussed with RN. Serum sodium slightly higher. Will cut down on IV Lasix. Continue per consultants. Continue to monitor renal parameters and electrolytes. April 01: Full code. Remains on ventilator. Labs reviewed. Stable from renal standpoint of view. Continue per consultants. March 31: Full code . Remains intubated on ventilator. Labs reviewed. Patient appears toxic. Discussed with RN. Maintenance IV discontinued. Medication list reviewed. Blood pressure medication stopped due to low blood pressure. Levemir insulin stopped. Continue monitor blood sugar and sliding scale insulin. March 30: Full code. On ventilator. Labs reviewed. Clonidine patch dose increased. Lasix increased. 3% saline 1 time ordered. Continue to monitor electrolytes and renal parameters. March 29: Remains full code. On mechanical ventilation. On tube feeding. Will DC TPN. Will start on maintenance IV fluid. Continue to monitor renal parameters. March 28: On BiPAP. Full code. On TPN. Labs reviewed. Discussed with pharmacy. Continue as is. Watch serum potassium. March 27: Remains on BiPAP. No chemistry panel done today. Full code. On TPN. Will check lab tomorrow. March 26: Remains on BiPAP. Remains on TPN. Labs reviewed. Electrolytes and chemistries within normal limits. Continue as is. March 25: Remains on TPN. Labs reviewed. Discussed with pharmacy. Change IV Protonix to p.o. Continue 3% saline infusion with Lasix. Patient full code. March 24: Continue to be on TPN. Labs are reviewed. Aim to collect electrolytes. Discussed with pharmacy. Continue current consultants. March 23: Continues to be on TPN. Labs reviewed. Electrolytes and chemistries all acceptable. Discussed with pharmacy. Continue current management. March 22: On TPN. Labs reviewed. Low sodium noted. 3% saline to be continued. Continue to monitor electrolytes. Discussed with pharmacy. March 21: On TPN. Labs reviewed. Continue 3% saline and Lasix for mild hyponatremia. Continue TPN as these. Discussed with pharmacy. March 20: Remains on TPN. Labs reviewed. Serum sodium higher on IV Lasix and 3% saline infusion. Continue TPN as is. Continue to monitor renal parameters and electrolytes. Discussed with Dr. Mata March 19: Remains on TPN. Labs reviewed. Serum sodium 128. Will give 3% saline with IV Lasix. Continue to monitor electrolytes. No change in TPN composition. Discussed with pharmacy. March 18: Remains on TPN. Labs reviewed. Discussed with pharmacist. Will give 3 doses of IV Lasix 20 mg every 8 hours. Continue to monitor serum sodium electrolytes uric acid. White blood cells down. Continue per consultants. March 17: On TPN. Labs reviewed. Discussed with pharmacist. Sodium content increase. Continue to monitor CMP. Patient continues to have leukocytosis. March 16: On TPN. Labs reviewed. Discussed with pharmacist. Appropriate changes made. Continue to monitor electrolytes. March 15: Remains on TPN. Labs reviewed. Discussed with pharmacist. Continue per current management. March 14: Remains on TPN. Labs reviewed, stable. Vitamin D level low, replacement ordered. Continue to monitor electrolytes and renal parameters. March 13: Patient remains on TPN. Discussed with pharmacist. TPN's sodium content adjusted. Labs reviewed. Continue to monitor electrolytes. Blood pressure remains stable. Continue per consultants. March 12: Patient on TPN. Labs reviewed. CPK remains elevated. Abnormal electrolytes and high blood sugar discussed with pharmacist and TPN adjusted. Continue to monitor labs. Oral Protonix added. Ibuprofen discontinued. Can continue to monitor electrolytes and chemistries. Levemir for high blood sugar added. March 11: Patient on TPN. Labs as of 11:15 AM is still pending. Continue per current treatment plan. Will check labs and adjust TPN as needed. Continue per consultants. March 10: Patient on TPN. Labs reviewed. Electrolytes overall stable. CPK is elevated. Will monitor electrolyte, CPK level, lipid panel. Continue per consultants. Discussed with pharmacist. Discussed with RN. Nutritional evaluation noted. Previously: D5W 100 cc an hour Monitor electrolytes renal parameters TPN and Intralipid ordered Will follow Continue per consultants Dietary consult requested Subjective ROS Limited/Unobtainable: Yes Objective Objective Last 24 Hour Vital Signs Date Time Temp Pulse Resp B/P (MAP) Pulse Ox O2 Delivery O2 Flow Rate FiO2 04/21/20 13:00 81 20 143/73 (96) 91 04/21/20 12:40 22 154/69 Mechanical Ventilator 90 04/21/20 12:30 22 151/73 Mechanical Ventilator 90 04/21/20 12:00 Mechanical Ventilator 04/21/20 12:00 90 04/21/20 12:00 19 132/67 Mechanical Ventilator 90 04/21/20 12:00 19 132/67 Mechanical Ventilator 90 04/21/20 12:00 76 04/21/20 12:00 98.9 76 21 132/67 (88) 88 04/21/20 11:00 18 119/59 Mechanical Ventilator 90 04/21/20 11:00 19 119/59 Mechanical Ventilator 90 04/21/20 11:00 76 19 119/59 (79) 87 04/21/20 10:00 82 21 108/53 (71) 89 04/21/20 10:00 20 120/58 Mechanical Ventilator 90 04/21/20 10:00 20 120/58 Mechanical Ventilator 90 04/21/20 09:30 82 18 102/52 (69) 90 04/21/20 09:00 93 20 109/59 (76) 94 04/21/20 09:00 19 102/53 Mechanical Ventilator 90 04/21/20 09:00 19 102/53 Mechanical Ventilator 90 04/21/20 08:43 90 04/21/20 08:30 94 20 148/72 (97) 94 04/21/20 08:00 100 04/21/20 08:00 Mechanical Ventilator 04/21/20 08:00 22 143/69 Mechanical Ventilator 90 04/21/20 08:00 22 143/69 Mechanical Ventilator 100 04/21/20 08:00 94 04/21/20 08:00 98.9 94 19 136/65 (88) 94 04/21/20 07:37 19 131/60 Mechanical Ventilator 100 04/21/20 07:30 97 24 131/60 (83) 94 04/21/20 07:00 107 28 160/68 (98) 93 04/21/20 07:00 101 22 100 04/21/20 07:00 28 160/68 Mechanical Ventilator 100 04/21/20 06:45 113 29 216/90 (132) 93 04/21/20 06:30 108 29 207/86 (126) 93 04/21/20 06:28 108 27 193/91 (125) 93 04/21/20 06:15 101 29 193/80 (117) 93 04/21/20 06:02 124 201/89 04/21/20 06:00 112 21 171/72 (105) 91 112 04/21/20 06:00 21 171/72 Mechanical Ventilator 100 04/21/20 06:00 126 25 201/89 (126) 92 04/21/20 05:57 121 26 211/76 (121) 92 04/21/20 05:54 119 27 219/76 (123) 93 04/21/20 05:48 107 24 210/76 (120) 93 04/21/20 05:45 104 24 211/94 (133) 93 04/21/20 05:45 24 211/94 Mechanical Ventilator 100 04/21/20 05:42 100 24 199/77 (117) 94 04/21/20 05:35 86 19 191/78 (115) 95 04/21/20 05:30 19 185/75 Mechanical Ventilator 100 04/21/20 05:30 74 19 185/75 (111) 96 04/21/20 05:23 18 176/86 Mechanical Ventilator 100 04/21/20 05:20 176/86 04/21/20 05:15 67 16 176/86 (116) 97 67 04/21/20 05:00 63 18 170/73 (105) 96 04/21/20 05:00 18 170/73 Mechanical Ventilator 100 04/21/20 04:57 63 19 158/74 (102) 97 04/21/20 04:45 64 17 164/82 (109) 97 04/21/20 04:30 64 16 156/72 (100) 97 04/21/20 04:30 16 156/72 Mechanical Ventilator 100 04/21/20 04:15 62 18 139/63 (88) 96 04/21/20 04:15 18 139/63 Mechanical Ventilator 100 04/21/20 04:00 67 04/21/20 04:00 Mechanical Ventilator 04/21/20 04:00 98.2 67 18 150/67 (94) 96 04/21/20 04:00 18 150/67 Mechanical Ventilator 100 04/21/20 04:00 100 04/21/20 03:45 72 17 164/71 (102) 96 04/21/20 03:30 80 22 151/98 (115) 95 04/21/20 03:30 22 151/98 Mechanical Ventilator 100 04/21/20 03:30 69 18 100 04/21/20 03:15 77 18 174/95 (121) 98 04/21/20 03:00 85 20 190/89 (122) 96 04/21/20 03:00 20 190/89 Mechanical Ventilator 100 04/21/20 03:00 20 190/89 Mechanical Ventilator 100 04/21/20 02:45 82 21 173/91 (118) 94 04/21/20 02:30 20 177/86 Mechanical Ventilator 100 04/21/20 02:30 79 20 177/86 (116) 95 04/21/20 02:15 77 20 175/79 (111) 95 04/21/20 02:00 22 181/81 Mechanical Ventilator 100 04/21/20 02:00 22 181/81 Mechanical Ventilator 100 04/21/20 02:00 75 22 184/83 (116) 95 04/21/20 01:45 71 18 173/81 (111) 95 04/21/20 01:45 18 173/81 Mechanical Ventilator 100 04/21/20 01:45 18 173/81 Mechanical Ventilator 100 04/21/20 01:31 20 167/81 Mechanical Ventilator 100 04/21/20 01:30 18 164/80 Mechanical Ventilator 100 04/21/20 01:30 70 18 164/80 (108) 96 04/21/20 01:15 19 167/81 Mechanical Ventilator 100 04/21/20 01:15 73 19 167/81 (109) 96 04/21/20 01:00 70 18 168/81 (110) 96 04/21/20 01:00 18 168/61 Mechanical Ventilator 100 04/21/20 00:45 17 149/71 Mechanical Ventilator 100 04/21/20 00:45 68 17 149/71 (97) 97 04/21/20 00:30 56 18 120/57 (78) 96 04/21/20 00:15 56 18 115/59 (77) 96 04/21/20 00:00 50 04/21/20 00:00 97.8 50 18 116/61 (79) 95 04/21/20 00:00 18 116/61 Mechanical Ventilator 100 04/21/20 00:00 18 116/61 Mechanical Ventilator 100 04/21/20 00:00 Mechanical Ventilator 04/21/20 00:00 100 04/20/20 23:45 52 18 112/53 (72) 94 04/20/20 23:45 18 112/53 Mechanical Ventilator 100 04/20/20 23:30 52 18 112/53 (72) 95 04/20/20 23:30 18 112/53 Mechanical Ventilator 100 04/20/20 23:15 56 18 107/52 (70) 93 04/20/20 23:15 18 107/52 Mechanical Ventilator 100 04/20/20 23:00 18 104/51 Mechanical Ventilator 100 04/20/20 23:00 18 104/51 Mechanical Ventilator 100 04/20/20 23:00 55 18 104/51 (68) 93 04/20/20 22:47 59 18 100 04/20/20 22:00 65 16 125/60 (81) 95 04/20/20 22:00 16 125/60 Mechanical Ventilator 100 04/20/20 22:00 16 125/60 Mechanical Ventilator 100 04/20/20 21:00 60 18 148/66 (93) 96 04/20/20 21:00 18 148/66 Mechanical Ventilator 100 04/20/20 21:00 18 148/66 Mechanical Ventilator 100 04/20/20 20:00 97.8 55 18 125/66 (85) 96 04/20/20 20:00 Mechanical Ventilator 04/20/20 20:00 18 125/66 Mechanical Ventilator 100 04/20/20 20:00 18 125/66 Mechanical Ventilator 100 04/20/20 20:00 100 04/20/20 19:30 55 04/20/20 19:15 54 18 100 04/20/20 19:00 53 18 106/53 (70) 95 04/20/20 19:00 18 106/53 Mechanical Ventilator 100 04/20/20 19:00 18 100/53 Mechanical Ventilator 100 04/20/20 18:46 18 117/60 Mechanical Ventilator 100 04/20/20 18:45 18 117/60 Mechanical Ventilator 100 04/20/20 18:06 61 18 138/65 (89) 97 04/20/20 18:00 18 138/65 Mechanical Ventilator 100 04/20/20 18:00 18 138/65 Mechanical Ventilator 100 04/20/20 17:00 69 18 131/60 (83) 90 04/20/20 17:00 18 131/60 Mechanical Ventilator 70 04/20/20 17:00 18 131/60 Mechanical Ventilator 70 04/20/20 16:01 98.0 04/20/20 16:00 90 04/20/20 16:00 73 04/20/20 16:00 70 18 124/61 (82) 89 04/20/20 16:00 18 124/61 Mechanical Ventilator 70 04/20/20 16:00 18 124/61 Mechanical Ventilator 70 04/20/20 16:00 Mechanical Ventilator 04/20/20 15:15 58 18 108/57 (74) 98 04/20/20 15:10 59 18 70 04/20/20 15:00 18 108/57 Mechanical Ventilator 70 04/20/20 15:00 18 108/57 Mechanical Ventilator 70 04/20/20 14:36 18 109/57 Mechanical Ventilator 70 04/20/20 14:00 60 18 109/57 (74) 98 04/20/20 14:00 18 109/57 Mechanical Ventilator 70 04/20/20 14:00 18 109/57 Mechanical Ventilator 70 Intake and Output 04/20/20 04/21/20 19:00 07:00 Intake Total 1700 ml 1415.25 ml Output Total 380 ml 2010 ml Balance 1320 ml -594.75 ml Free Water 200 ml IV Total 840 ml 815.25 ml Tube Feeding 600 ml 550 ml Other 60 ml 50 ml Output Urine Total 355 ml 1980 ml Stool Total 25 ml 30 ml Current Medications Medications (Trade) Dose Ordered Sig/Dennis Route PRN Reason Start Time Stop Time Status Last Admin Dose Admin Acetaminophen (Tylenol) 650 mg Q4H PRN ORAL Temp >100.5 04/13/20 00:30 05/13/20 00:29 04/13/20 01:30 Bisacodyl (Dulcolax) 10 mg Q12H PRN RECTAL Constipation 03/18/20 16:45 06/16/20 16:44 Chlorhexidine Gluconate (Marlen-Hex 2%) 1 applic DAILY@1999 TOPIC 03/30/20 20:00 06/28/20 19:59 04/20/20 19:49 Dextrose (Dextrose 50%) 25 ml Q30M PRN IV Hypoglycemia 03/29/20 20:45 06/27/20 20:44 Dextrose (Dextrose 50%) 50 ml Q30M PRN IV Hypoglycemia 03/29/20 20:45 06/27/20 20:44 Enoxaparin Sodium (Lovenox) 80 mg EVERY 12 HOURS SUBQ 04/06/20 21:00 07/05/20 20:59 04/21/20 09:54 Fentanyl Citrate 250 ml @ 1 mls/hr Q24H IV 04/21/20 13:00 04/23/20 12:59 04/21/20 12:40 Hydralazine HCl (Apresoline) 10 mg Q4H PRN IV For High Blood Pressure 03/30/20 12:15 06/28/20 12:14 04/21/20 05:20 Insulin Aspart (NovoLOG) Q6HR SUBQ 03/30/20 00:00 06/28/20 00:00 04/20/20 23:34 Labetalol HCl (Normodyne) 10 mg Q4H PRN IV sbp greater tahtn 160 03/28/20 17:30 04/27/20 17:29 04/21/20 06:02 Lansoprazole (Prevacid) 15 mg Q12HR GT 04/20/20 21:00 05/20/20 20:59 04/21/20 09:51 Methylprednisolone Sodium Succinate (Solu-MEDROL) 20 mg Q12HR IVP 04/12/20 21:00 06/20/20 20:59 04/21/20 09:50 Metoclopramide HCl (Reglan) 10 mg Q6H IVP 03/30/20 15:00 04/29/20 14:59 04/21/20 09:50 Midazolam HCl 200 ml @ 0 mls/hr Q24H PRN IV Agitation 04/17/20 22:30 04/24/20 22:29 04/21/20 12:30 Morphine Sulfate (Morphine Sulfate) 4 mg Q6H PRN IVP agitation despite sedating med 04/21/20 12:45 04/28/20 12:44 04/21/20 12:54 Piperacillin Sod/ Tazobactam Sod 3.375 gm/Dextrose 110 ml @ 27.5 mls/hr EVERY 8 HOURS IVPB 04/17/20 22:00 04/21/20 23:59 04/21/20 13:03 Trimethoprim/ Sulfamethoxazole (Bactrim-DS) 1 tab Q24H ORAL 03/29/20 17:00 05/10/20 16:59 04/20/20 17:04 Laboratory Tests 04/21/20 03:45: Sodium Level 141, Potassium Level 4.2, Chloride Level 103, Carbon Dioxide Level 33H, Anion Gap 5, Blood Urea Nitrogen 17, Creatinine 0.4L, Estimat Glomerular Filtration Rate > 60, Glucose Level 126H, Calcium Level 8.6, Magnesium Level 2.4, Pro-B-Type Natriuretic Peptide 528H 04/21/20 08:16: Arterial Blood pH 7.338L, Arterial Blood Partial Pressure CO2 66.1*H, Arterial Blood Partial Pressure O2 225.9H, Arterial Blood HCO3 34.7H, Arterial Blood Oxygen Saturation 98.4, Arterial Blood Base Excess 7.2H, Shemar Test Positive Height (Feet): 5 Height (Inches): 10.00 Weight (Pounds): 240 General Appearance: no apparent distress EENT: other - Intubated on ventilator Cardiovascular: tachycardia Respiratory/Chest: decreased breath sounds Abdomen: distended Rubin Cooper MD Apr 21, 2020 14:01
--- NOTE | 2020-04-21 14:04 | Infectious Diseases Prog Note ---
Assessment/Plan Assessment/Plan ASSESSMENT AND PLAN: 1. staph aureus bacteremia/mssa, ? source, ? endocarditis, sepsis, leukocytosis, ? CAP, PJP less likely with HIV negative and steroids < 1 month covid-19 +, hypoxia, sob, chest x-ray worse, ? PE, ? HCAP/aspiration pna recurrent fevers - ? fungal, ? OI leukocytosis noted - ? new infection, ? steroids cocci serology negative, legionella negative, beta 1,3 D-glucan wnl, Il-16 - 13.7 elevated LFT's - ? TPN, ? Bactrim - US without gallbladder disease, + steatosis - d/w GI - TPN more likely than bactrim as etiology e.coli uti - s/p treatment with rocephin, s/p treatment for presumptive pneumocystis pna + yeast in blood, fungemia, ? line infection, line changed worsening respiratory status, ? new aspiration pna/hcap, ? sepsis ? fungal/cynthia uti vs colonization - s/p zosyn, surveillance cultures negative to date, discontinue vancomycin - s/p micafungin - day # 14/14 (post negative blood cultures - 04/02/20) - on solumedrol - picc line changed - bactrim for pneumocystis prophylaxis, s/p pneumocystis treatment - s/p tx for mssa bacteremia and ? endocarditis - monitor hypoxia, labs and chest x-ray - guarded condition - plan on trach - c.diff. negative 2. covid-19 isolation 3. Hypertension history. Blood pressure treatment primary care team. 4. Elevated blood sugars. Blood sugar treatment per primary care team. 5. No known drug allergies. 6. Social history is positive for smoking. 7. Family history is noncontributory. 8. MAR was noted. 9. Case was discussed with RN. 10. Continue treatment per primary consultants. Subjective Constitutional: Reports: other - on vent ; Denies: fever HEENT: Reports: congestion Respiratory: Reports: shortness of breath Cardiovascular: Reports: other - no pressors Gastrointestinal/Abdominal: Denies: nausea, vomiting Genitourinary: Reports: other - + joseph Neurologic: Reports: other - weak, sedated, on vent Psychiatric: Reports: other - NA Skin: Denies: rash Hematologic: Denies: bleeding Musculoskeletal: Reports: other - NA Allergies: Coded Allergies: No Known Allergies (Unverified , 02/05/20) Objective Last 24 Hour Vital Signs Date Time Temp Pulse Resp B/P (MAP) Pulse Ox O2 Delivery O2 Flow Rate FiO2 04/21/20 13:00 81 20 143/73 (96) 91 04/21/20 12:40 22 154/69 Mechanical Ventilator 90 04/21/20 12:30 22 151/73 Mechanical Ventilator 90 04/21/20 12:00 Mechanical Ventilator 04/21/20 12:00 90 04/21/20 12:00 19 132/67 Mechanical Ventilator 90 04/21/20 12:00 19 132/67 Mechanical Ventilator 90 04/21/20 12:00 76 04/21/20 12:00 98.9 76 21 132/67 (88) 88 04/21/20 11:00 18 119/59 Mechanical Ventilator 90 04/21/20 11:00 19 119/59 Mechanical Ventilator 90 04/21/20 11:00 76 19 119/59 (79) 87 04/21/20 10:00 82 21 108/53 (71) 89 04/21/20 10:00 20 120/58 Mechanical Ventilator 90 04/21/20 10:00 20 120/58 Mechanical Ventilator 90 04/21/20 09:30 82 18 102/52 (69) 90 04/21/20 09:00 93 20 109/59 (76) 94 04/21/20 09:00 19 102/53 Mechanical Ventilator 90 04/21/20 09:00 19 102/53 Mechanical Ventilator 90 04/21/20 08:43 90 04/21/20 08:30 94 20 148/72 (97) 94 04/21/20 08:00 100 04/21/20 08:00 Mechanical Ventilator 04/21/20 08:00 22 143/69 Mechanical Ventilator 90 04/21/20 08:00 22 143/69 Mechanical Ventilator 100 04/21/20 08:00 94 04/21/20 08:00 98.9 94 19 136/65 (88) 94 04/21/20 07:37 19 131/60 Mechanical Ventilator 100 04/21/20 07:30 97 24 131/60 (83) 94 04/21/20 07:00 107 28 160/68 (98) 93 04/21/20 07:00 101 22 100 04/21/20 07:00 28 160/68 Mechanical Ventilator 100 04/21/20 06:45 113 29 216/90 (132) 93 04/21/20 06:30 108 29 207/86 (126) 93 04/21/20 06:28 108 27 193/91 (125) 93 04/21/20 06:15 101 29 193/80 (117) 93 04/21/20 06:02 124 201/89 04/21/20 06:00 112 21 171/72 (105) 91 112 04/21/20 06:00 21 171/72 Mechanical Ventilator 100 04/21/20 06:00 126 25 201/89 (126) 92 04/21/20 05:57 121 26 211/76 (121) 92 04/21/20 05:54 119 27 219/76 (123) 93 04/21/20 05:48 107 24 210/76 (120) 93 04/21/20 05:45 104 24 211/94 (133) 93 04/21/20 05:45 24 211/94 Mechanical Ventilator 100 04/21/20 05:42 100 24 199/77 (117) 94 04/21/20 05:35 86 19 191/78 (115) 95 04/21/20 05:30 19 185/75 Mechanical Ventilator 100 04/21/20 05:30 74 19 185/75 (111) 96 04/21/20 05:23 18 176/86 Mechanical Ventilator 100 04/21/20 05:20 176/86 04/21/20 05:15 67 16 176/86 (116) 97 67 04/21/20 05:00 63 18 170/73 (105) 96 04/21/20 05:00 18 170/73 Mechanical Ventilator 100 04/21/20 04:57 63 19 158/74 (102) 97 04/21/20 04:45 64 17 164/82 (109) 97 04/21/20 04:30 64 16 156/72 (100) 97 04/21/20 04:30 16 156/72 Mechanical Ventilator 100 04/21/20 04:15 62 18 139/63 (88) 96 04/21/20 04:15 18 139/63 Mechanical Ventilator 100 04/21/20 04:00 67 04/21/20 04:00 Mechanical Ventilator 04/21/20 04:00 98.2 67 18 150/67 (94) 96 04/21/20 04:00 18 150/67 Mechanical Ventilator 100 04/21/20 04:00 100 04/21/20 03:45 72 17 164/71 (102) 96 04/21/20 03:30 80 22 151/98 (115) 95 04/21/20 03:30 22 151/98 Mechanical Ventilator 100 04/21/20 03:30 69 18 100 04/21/20 03:15 77 18 174/95 (121) 98 04/21/20 03:00 85 20 190/89 (122) 96 04/21/20 03:00 20 190/89 Mechanical Ventilator 100 04/21/20 03:00 20 190/89 Mechanical Ventilator 100 04/21/20 02:45 82 21 173/91 (118) 94 04/21/20 02:30 20 177/86 Mechanical Ventilator 100 04/21/20 02:30 79 20 177/86 (116) 95 04/21/20 02:15 77 20 175/79 (111) 95 04/21/20 02:00 22 181/81 Mechanical Ventilator 100 04/21/20 02:00 22 181/81 Mechanical Ventilator 100 04/21/20 02:00 75 22 184/83 (116) 95 04/21/20 01:45 71 18 173/81 (111) 95 04/21/20 01:45 18 173/81 Mechanical Ventilator 100 04/21/20 01:45 18 173/81 Mechanical Ventilator 100 04/21/20 01:31 20 167/81 Mechanical Ventilator 100 04/21/20 01:30 18 164/80 Mechanical Ventilator 100 04/21/20 01:30 70 18 164/80 (108) 96 04/21/20 01:15 19 167/81 Mechanical Ventilator 100 04/21/20 01:15 73 19 167/81 (109) 96 04/21/20 01:00 70 18 168/81 (110) 96 04/21/20 01:00 18 168/61 Mechanical Ventilator 100 04/21/20 00:45 17 149/71 Mechanical Ventilator 100 04/21/20 00:45 68 17 149/71 (97) 97 04/21/20 00:30 56 18 120/57 (78) 96 04/21/20 00:15 56 18 115/59 (77) 96 04/21/20 00:00 50 04/21/20 00:00 97.8 50 18 116/61 (79) 95 04/21/20 00:00 18 116/61 Mechanical Ventilator 100 04/21/20 00:00 18 116/61 Mechanical Ventilator 100 04/21/20 00:00 Mechanical Ventilator 04/21/20 00:00 100 04/20/20 23:45 52 18 112/53 (72) 94 04/20/20 23:45 18 112/53 Mechanical Ventilator 100 04/20/20 23:30 52 18 112/53 (72) 95 04/20/20 23:30 18 112/53 Mechanical Ventilator 100 04/20/20 23:15 56 18 107/52 (70) 93 04/20/20 23:15 18 107/52 Mechanical Ventilator 100 04/20/20 23:00 18 104/51 Mechanical Ventilator 100 04/20/20 23:00 18 104/51 Mechanical Ventilator 100 04/20/20 23:00 55 18 104/51 (68) 93 04/20/20 22:47 59 18 100 04/20/20 22:00 65 16 125/60 (81) 95 04/20/20 22:00 16 125/60 Mechanical Ventilator 100 04/20/20 22:00 16 125/60 Mechanical Ventilator 100 04/20/20 21:00 60 18 148/66 (93) 96 04/20/20 21:00 18 148/66 Mechanical Ventilator 100 04/20/20 21:00 18 148/66 Mechanical Ventilator 100 04/20/20 20:00 97.8 55 18 125/66 (85) 96 04/20/20 20:00 Mechanical Ventilator 04/20/20 20:00 18 125/66 Mechanical Ventilator 100 04/20/20 20:00 18 125/66 Mechanical Ventilator 100 04/20/20 20:00 100 04/20/20 19:30 55 04/20/20 19:15 54 18 100 04/20/20 19:00 53 18 106/53 (70) 95 04/20/20 19:00 18 106/53 Mechanical Ventilator 100 04/20/20 19:00 18 100/53 Mechanical Ventilator 100 04/20/20 18:46 18 117/60 Mechanical Ventilator 100 04/20/20 18:45 18 117/60 Mechanical Ventilator 100 04/20/20 18:06 61 18 138/65 (89) 97 04/20/20 18:00 18 138/65 Mechanical Ventilator 100 04/20/20 18:00 18 138/65 Mechanical Ventilator 100 04/20/20 17:00 69 18 131/60 (83) 90 04/20/20 17:00 18 131/60 Mechanical Ventilator 70 04/20/20 17:00 18 131/60 Mechanical Ventilator 70 04/20/20 16:01 98.0 04/20/20 16:00 90 04/20/20 16:00 73 04/20/20 16:00 70 18 124/61 (82) 89 04/20/20 16:00 18 124/61 Mechanical Ventilator 70 04/20/20 16:00 18 124/61 Mechanical Ventilator 70 04/20/20 16:00 Mechanical Ventilator 04/20/20 15:15 58 18 108/57 (74) 98 04/20/20 15:10 59 18 70 04/20/20 15:00 18 108/57 Mechanical Ventilator 70 04/20/20 15:00 18 108/57 Mechanical Ventilator 70 04/20/20 14:36 18 109/57 Mechanical Ventilator 70 04/20/20 14:00 60 18 109/57 (74) 98 04/20/20 14:00 18 109/57 Mechanical Ventilator 70 04/20/20 14:00 18 109/57 Mechanical Ventilator 70 Height (Feet): 5 Height (Inches): 10.00 Weight (Pounds): 240 General Appearance: other - on vent HEENT: normocephalic, atraumatic, anicteric, no JVD, other - oral - intubated Respiratory/Chest: crackles/rales, rhonchi - bilaterally Cardiovascular: normal rate, regular rhythm, no gallop/murmur, no JVD Abdomen: normal bowel sounds, soft, non tender, no organomegaly, non distended Genitourinary: other - + joseph Extremities: no cyanosis Skin: no rash Neurologic/Psychiatric: other - sedated, weak, on vent Lymphatic: no neck adenopathy Musculoskeletal: no effusion CT chest: IMPRESSION: There are mild subpleural ground-glass and consolidating infiltrates in the dependent portions of both lower lobes and to lesser degree the upper lobes consistent with bilateral pneumonia. The infiltrates are typical for Covid 19. No evidence of pulmonary embolus. CT abdomen and pelvis: IMPRESSION: 1. Scattered hepatic hypodense lesions, too small to characterize on this examination without intravenous contrast. 2. Colonic diverticulosis without evidence of acute diverticulitis. 3. Scattered enlarged mesenteric lymph nodes, presumably reactive. teral pneumonia. The infiltrates are typical for Covid 19. No evidence of pulmonary embolus. Chest x-ray - 12/19/19 - Indication: Shortness of breath Technique: One view of the chest Comparison: 02/17/2020 Findings: Interim worsening of bilateral infiltrates, particularly on the right. The heart is borderline enlarged. The pleural spaces are clear. Left arm PICC is again demonstrated Impression: Worsening bilateral infiltrates over one day, likely pneumonia CT chest - 02/19/20 - IMPRESSION: Increased extensive patchy ground-glass opacities and densities throughout the lungs, suggestive of Covid 19 infection. Chest x-ray 02/23/20 - Procedure: XRAY Chest 1v As Indication: Reason For Exam: INFECT Technique: One view of the chest Comparison: 02/20/2020 Findings: Allowing for differences in exposure technique, bilateral mid and lo wer lung infiltrates are probably unchanged. The heart size is normal. The pleural spaces are clear. Impression: Unchanged, over 4 days, findings as above. Chest x-ray - 02/25/20 - FINDINGS: Lungs: Interval slightly worsening bilateral airspace disease. Pleural space: Unremarkable. No pneumothorax. Heart: Unremarkable. No cardiomegaly. Mediastinum: Unremarkable. Bones/joints: Unremarkable. IMPRESSION: Interval slightly worsening bilateral airspace disease. Chest x-ray - 03/02/20 - Procedure: XRAY Chest 1v Indication: Shortness of breath Technique: One view of the chest Comparison: 02/25/2020 Findings: Bilateral interstitial and airspace infiltrates are unchanged. The heart size is normal. Left arm PICC is again demonstrated Impression: Unchanged, over one day, findings as above. Chest x-ray - 03/06/20 - Procedure: XRAY Chest 1v Indication: Shortness of breath Technique: One view of the chest Comparison: 03/02/2020 Findings: Bilateral infiltrates are unchanged. Normal heart size. Pleural spaces are clear Chest x-ray - 03/12/10 - Impression: COMPARISON: Chest radiograph March 06, 2020. FINDINGS/IMPRESSION: Improving basilar infiltrates. Follow chest radiograph recommended. The upper lung finley are clear. No pneumothorax. Stable cardiomegaly. Stable left upper extremity PICC line. anged, over 4 days, findings as above. Chest x-ray - 03/17/20 - Procedure: XRAY Chest 1v Indication: Shortness of breath Technique: One view of the chest Comparison: 03/12/2020 Findings: Left arm PICC is again demonstrated. Infiltrates are unchanged. The heart size is upper limits of normal. Impression: Unchanged, over 5 days, findings as above. Abdominal US - IMPRESSION: 1. Gallbladder is normal. 2. Hepatic steatosis. 3. 1.7 cm cyst right kidney. Impression. Chest x-ray - Procedure: XRAY Chest 1v Indication: Shortness of breath Technique: One view of the chest Comparison: 03/17/2020 Findings: Bilateral right greater than left infiltrates again demonstrated. The heart size is normal. There is a left arm PICC in good position. Impression: Unchanged, over 5 days, findings as above. Chest x-ray - 03/29/20 - Procedure: XRAY Chest 1v Indication: Cough Technique: One view of the chest Comparison: 03/28/2020 Findings: Bilateral infiltrates are unchanged or slightly worse, allowing for differences in exposure technique. The pleural spaces are clear. The heart size is normal. Stable satisfactory position of endotracheal tube, left arm PICC. Orogastric tube has retracted somewhat the position remains satisfactory. Impression: Stable to slightly worse bilateral infiltrates. 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 Interim advancement of orogastric tube as well. Bilateral infiltrates are unchanged. Left arm PICC remains Impression: Improved and now satisfactory tube positions as described. ICU nurse Maeve notified at the time of interpretation Chest x-ray - 04/02/20 - COMPARISON: Chest x-rays dated 03/31/20 and 03/12/20. FINDINGS: Lungs: No significant change in bilateral prominent interstitial markings. The lungs are otherwise clear without focal consolidation. Pleural space: Unremarkable. The costophrenic angles are sharp. No visible pneumothorax. Heart: Unremarkable. No cardiomegaly. Mediastinum: Unremarkable. Bones/joints: Unremarkable. Tubes, lines and devices: Endotracheal tube tip 6.5 cm above the sunny. NG tube tip in the distal stomach. Telemetry leads overlie the thorax. IMPRESSION: No significant change in bilateral prominent interstitial markings. Procedure: XRAY Chest 1v Procedure: XRAY Chest 1v Reason for study: Shortness of breath 04/06/20 - Comparison films: 04/02/2020. FINDINGS: Endotracheal tube and NG tube remain in place. There is worsening of right basilar infiltrates. Some haziness in left lung base unchanged. Cardiac and mediastinal silhouette are within normal limits. CP angles are sharp. The bony thorax appear unremarkable. IMPRESSION: Worsening of right basilar infiltrate. Chest x-ray - 04/09/20 - Procedure: XRAY Chest 1v FILM CXR 1 VIEW INDICATION: Infection COMPARISON: April 05, 2020 FINDINGS: Single frontal view demonstrates a normal cardiomediastinal silhouette. Endotracheal tube in place with tip above the sunny. Elevation of the right hemidiaphragm. Interstitial prominence with bilateral lower lobe infiltrates. Lung bases appear worse from the prior exam. Small right effusion. Right-sided PICC line with tip in the superior vena cava. Enteric tube in place. IMPRESSION: Interstitial prominence and bilateral lower lobe pneumonia with worsening appearance from the prior study. Chest x-ray - 04/12/20 - Procedure: XRAY Chest 1v Indication: Shortness of breath Technique: One view of the chest Comparison: 04/09/2020 Findings: Stable satisfactory tube and line positions. Bilateral infiltrates have worsened slightly since prior study. The heart size is normal. Impression: Worsening bilateral infiltrates, over 3 days Chest x-ray - 04/15/20 - COMPARISON: 02/11/21. FINDINGS: Lungs: There is been no significant change in mild to moderate patchy diffuse bilateral alveolar infiltrates which are most prominent in the lung bases. Pleural space: Unremarkable. No pneumothorax. Heart: Unremarkable. No cardiomegaly. Mediastinum: Unremarkable. Bones/joints: Unremarkable. Tubes, lines and devices: There is an endotracheal tube, right-sided PICC line and NG tube in good position. IMPRESSION: There is been no significant change in mild to moderate patchy diffuse bilateral alveolar infiltrates which are most prominent in the lung bases. Chest x-ray - 04/18/20 - Procedure: XRAY Chest 1v Indication: Cough Technique: One view of the chest Comparison: 04/15/2020 Findings: Less optimal inspiration currently than previously. Stable satisfactory positions of endotracheal and orogastric tubes and right arm PICC. Bilateral infiltrates are again demonstrated, unchanged. Impression: Unchanged, over 3 days, findings as above. Microbiology Date/Time Source Procedure Growth Status 04/14/20 16:35 Stool Clostridium difficile Toxin Assay - Final Complete 04/12/20 08:40 Urine,Clean Catch Urine Culture - Final Cynthia Parapsilosis Complete 04/12/20 08:40 Sputum Gram Stain - Final Complete 04/12/20 08:40 Sputum Sputum Culture - Final NORMAL UPPER RESPIRATORY WILIAM AT 48 ... Complete 04/11/20 18:55 Blood Blood Culture - Final NO GROWTH AFTER 5 DAYS Complete Labs Test 04/19/20 05:08 04/19/20 12:41 04/20/20 02:35 04/20/20 07:21 POC Whole Blood Glucose 123 MG/DL (74-106) 114 MG/DL (74-106) 104 MG/DL (74-106) White Blood Count 5.6 K/UL (4.8-10.8) Red Blood Count 3.09 M/UL (4.70-6.10) Hemoglobin 8.8 G/DL (14.2-18.0) Hematocrit 28.1 % (42.0-52.0) Mean Corpuscular Volume 91 FL (80-99) Mean Corpuscular Hemoglobin 28.6 PG (27.0-31.0) Mean Corpuscular Hemoglobin Concent 31.4 G/DL (32.0-36.0) Red Cell Distribution Width 17.3 % (11.6-14.8) Platelet Count 267 K/UL (150-450) Mean Platelet Volume 6.2 FL (6.5-10.1) Neutrophils (%) (Auto) % (45.0-75.0) Lymphocytes (%) (Auto) % (20.0-45.0) Monocytes (%) (Auto) % (1.0-10.0) Eosinophils (%) (Auto) % (0.0-3.0) Basophils (%) (Auto) % (0.0-2.0) Differential Total Cells Counted 100 Neutrophils % (Manual) 84 % (45-75) Lymphocytes % (Manual) 13 % (20-45) Monocytes % (Manual) 1 % (1-10) Eosinophils % (Manual) 1 % (0-3) Basophils % (Manual) 1 % (0-2) Band Neutrophils 0 % (0-8) Platelet Estimate Adequate Platelet Morphology Normal Hypochromasia 2+ Anisocytosis 2+ Sodium Level 142 MMOL/L (136-145) Potassium Level 4.2 MMOL/L (3.5-5.1) Chloride Level 106 MMOL/L (98-107) Carbon Dioxide Level 34 MMOL/L (21-32) Anion Gap 2 mmol/L (5-15) Blood Urea Nitrogen 15 mg/dL (7-18) Creatinine 0.4 MG/DL (0.55-1.30) Estimat Glomerular Filtration Rate > 60 mL/min (>60) Glucose Level 110 MG/DL (74-106) Calcium Level 8.3 MG/DL (8.5-10.1) Phosphorus Level 3.6 MG/DL (2.5-4.9) Magnesium Level 2.4 MG/DL (1.8-2.4) Total Bilirubin 0.5 MG/DL (0.2-1.0) Aspartate Amino Transf (AST/SGOT) 16 U/L (15-37) Alanine Aminotransferase (ALT/SGPT) 70 U/L (12-78) Alkaline Phosphatase 190 U/L (46-116) C-Reactive Protein, Quantitative 1.2 mg/dL (0.00-0.90) Pro-B-Type Natriuretic Peptide 932 pg/mL (0-125) Total Protein 5.1 G/DL (6.4-8.2) Albumin 2.0 G/DL (3.4-5.0) Globulin 3.1 g/dL Albumin/Globulin Ratio 0.6 (1.0-2.7) Test 04/20/20 12:35 04/21/20 03:45 04/21/20 08:16 POC Whole Blood Glucose 150 MG/DL (74-106) Sodium Level 141 MMOL/L (136-145) Potassium Level 4.2 MMOL/L (3.5-5.1) Chloride Level 103 MMOL/L (98-107) Carbon Dioxide Level 33 MMOL/L (21-32) Anion Gap 5 mmol/L (5-15) Blood Urea Nitrogen 17 mg/dL (7-18) Creatinine 0.4 MG/DL (0.55-1.30) Estimat Glomerular Filtration Rate > 60 mL/min (>60) Glucose Level 126 MG/DL (74-106) Calcium Level 8.6 MG/DL (8.5-10.1) Magnesium Level 2.4 MG/DL (1.8-2.4) Pro-B-Type Natriuretic Peptide 528 pg/mL (0-125) Arterial Blood pH 7.338 (7.350-7.450) Arterial Blood Partial Pressure CO2 66.1 mmHg (35.0-45.0) Arterial Blood Partial Pressure O2 225.9 mmHg (75.0-100.0) Arterial Blood HCO3 34.7 mmol/L (22.0-26.0) Arterial Blood Oxygen Saturation 98.4 % (95-100) Arterial Blood Base Excess 7.2 (-2-2) Shemar Test Positive Laboratory Tests Test 04/21/20 03:45 04/21/20 08:16 Sodium Level 141 MMOL/L (136-145) Potassium Level 4.2 MMOL/L (3.5-5.1) Chloride Level 103 MMOL/L (98-107) Carbon Dioxide Level 33 MMOL/L (21-32) H Anion Gap 5 mmol/L (5-15) Blood Urea Nitrogen 17 mg/dL (7-18) Creatinine 0.4 MG/DL (0.55-1.30) L Estimat Glomerular Filtration Rate > 60 mL/min (>60) Glucose Level 126 MG/DL (74-106) H Calcium Level 8.6 MG/DL (8.5-10.1) Magnesium Level 2.4 MG/DL (1.8-2.4) Pro-B-Type Natriuretic Peptide 528 pg/mL (0-125) H Arterial Blood pH 7.338 (7.350-7.450) Arterial Blood Partial Pressure CO2 66.1 mmHg (35.0-45.0) *H Arterial Blood Partial Pressure O2 225.9 mmHg (75.0-100.0) H Arterial Blood HCO3 34.7 mmol/L (22.0-26.0) H Arterial Blood Oxygen Saturation 98.4 % (95-100) Arterial Blood Base Excess 7.2 (-2-2) H Shemar Test Positive Current Medications Medications (Trade) Dose Ordered Sig/Dennis Route PRN Reason Start Time Stop Time Status Last Admin Dose Admin Acetaminophen (Tylenol) 650 mg Q4H PRN ORAL Temp >100.5 04/13/20 00:30 05/13/20 00:29 04/13/20 01:30 Bisacodyl (Dulcolax) 10 mg Q12H PRN RECTAL Constipation 03/18/20 16:45 06/16/20 16:44 Chlorhexidine Gluconate (Marlen-Hex 2%) 1 applic DAILY@2000 TOPIC 03/30/20 20:00 06/28/20 19:59 04/20/20 19:49 Dextrose (Dextrose 50%) 25 ml Q30M PRN IV Hypoglycemia 03/29/20 20:45 06/27/20 20:44 Dextrose (Dextrose 50%) 50 ml Q30M PRN IV Hypoglycemia 03/29/20 20:45 06/27/20 20:44 Enoxaparin Sodium (Lovenox) 80 mg EVERY 12 HOURS SUBQ 04/06/20 21:00 07/05/20 20:59 04/21/20 09:54 Fentanyl Citrate 250 ml @ 1 mls/hr Q24H IV 04/21/20 13:00 04/23/20 12:59 04/21/20 12:40 Hydralazine HCl (Apresoline) 10 mg Q4H PRN IV For High Blood Pressure 03/30/20 12:15 06/28/20 12:14 04/21/20 05:20 Insulin Aspart (NovoLOG) Q6HR SUBQ 03/30/20 00:00 06/28/20 00:00 04/20/20 23:34 Labetalol HCl (Normodyne) 10 mg Q4H PRN IV sbp greater tahtn 160 03/28/20 17:30 04/27/20 17:29 04/21/20 06:02 Lansoprazole (Prevacid) 15 mg Q12HR GT 04/20/20 21:00 05/20/20 20:59 04/21/20 09:51 Methylprednisolone Sodium Succinate (Solu-MEDROL) 20 mg Q12HR IVP 04/12/20 21:00 06/20/20 20:59 04/21/20 09:50 Metoclopramide HCl (Reglan) 10 mg Q6H IVP 03/30/20 15:00 04/29/20 14:59 04/21/20 09:50 Midazolam HCl 200 ml @ 0 mls/hr Q24H PRN IV Agitation 04/17/20 22:30 04/24/20 22:29 04/21/20 12:30 Morphine Sulfate (Morphine Sulfate) 4 mg Q6H PRN IVP agitation despite sedating med 04/21/20 12:45 04/28/20 12:44 04/21/20 12:54 Piperacillin Sod/ Tazobactam Sod 3.375 gm/Dextrose 110 ml @ 27.5 mls/hr EVERY 8 HOURS IVPB 04/17/20 22:00 04/21/20 23:59 04/21/20 13:03 Trimethoprim/ Sulfamethoxazole (Bactrim-DS) 1 tab Q24H ORAL 03/29/20 17:00 05/10/20 16:59 04/20/20 17:04 Kisha Salazar MD Apr 21, 2020 14:04
--- NOTE | 2020-04-21 14:11 | General Progress Note ---
Subjective ROS Limited/Unobtainable: No Allergies: Coded Allergies: No Known Allergies (Unverified , 02/05/20) Objective Last 24 Hour Vital Signs Date Time Temp Pulse Resp B/P (MAP) Pulse Ox O2 Delivery O2 Flow Rate FiO2 04/21/20 14:00 79 13 164/71 (102) 95 04/21/20 13:00 81 20 143/73 (96) 91 04/21/20 12:40 22 154/69 Mechanical Ventilator 90 04/21/20 12:30 22 151/73 Mechanical Ventilator 90 04/21/20 12:00 Mechanical Ventilator 04/21/20 12:00 90 04/21/20 12:00 19 132/67 Mechanical Ventilator 90 04/21/20 12:00 19 132/67 Mechanical Ventilator 90 04/21/20 12:00 76 04/21/20 12:00 98.9 76 21 132/67 (88) 88 04/21/20 11:00 18 119/59 Mechanical Ventilator 90 04/21/20 11:00 19 119/59 Mechanical Ventilator 90 04/21/20 11:00 76 19 119/59 (79) 87 04/21/20 10:00 82 21 108/53 (71) 89 04/21/20 10:00 20 120/58 Mechanical Ventilator 90 04/21/20 10:00 20 120/58 Mechanical Ventilator 90 04/21/20 09:30 82 18 102/52 (69) 90 04/21/20 09:00 93 20 109/59 (76) 94 04/21/20 09:00 19 102/53 Mechanical Ventilator 90 04/21/20 09:00 19 102/53 Mechanical Ventilator 90 04/21/20 08:43 90 04/21/20 08:30 94 20 148/72 (97) 94 04/21/20 08:00 100 04/21/20 08:00 Mechanical Ventilator 04/21/20 08:00 22 143/69 Mechanical Ventilator 90 04/21/20 08:00 22 143/69 Mechanical Ventilator 100 04/21/20 08:00 94 04/21/20 08:00 98.9 94 19 136/65 (88) 94 04/21/20 07:37 19 131/60 Mechanical Ventilator 100 04/21/20 07:30 97 24 131/60 (83) 94 04/21/20 07:00 107 28 160/68 (98) 93 04/21/20 07:00 101 22 100 04/21/20 07:00 28 160/68 Mechanical Ventilator 100 04/21/20 06:45 113 29 216/90 (132) 93 04/21/20 06:30 108 29 207/86 (126) 93 04/21/20 06:28 108 27 193/91 (125) 93 04/21/20 06:15 101 29 193/80 (117) 93 04/21/20 06:02 124 201/89 04/21/20 06:00 112 21 171/72 (105) 91 112 04/21/20 06:00 21 171/72 Mechanical Ventilator 100 04/21/20 06:00 126 25 201/89 (126) 92 04/21/20 05:57 121 26 211/76 (121) 92 04/21/20 05:54 119 27 219/76 (123) 93 04/21/20 05:48 107 24 210/76 (120) 93 04/21/20 05:45 104 24 211/94 (133) 93 04/21/20 05:45 24 211/94 Mechanical Ventilator 100 04/21/20 05:42 100 24 199/77 (117) 94 04/21/20 05:35 86 19 191/78 (115) 95 04/21/20 05:30 19 185/75 Mechanical Ventilator 100 04/21/20 05:30 74 19 185/75 (111) 96 04/21/20 05:23 18 176/86 Mechanical Ventilator 100 04/21/20 05:20 176/86 04/21/20 05:15 67 16 176/86 (116) 97 67 04/21/20 05:00 63 18 170/73 (105) 96 04/21/20 05:00 18 170/73 Mechanical Ventilator 100 04/21/20 04:57 63 19 158/74 (102) 97 04/21/20 04:45 64 17 164/82 (109) 97 04/21/20 04:30 64 16 156/72 (100) 97 04/21/20 04:30 16 156/72 Mechanical Ventilator 100 04/21/20 04:15 62 18 139/63 (88) 96 04/21/20 04:15 18 139/63 Mechanical Ventilator 100 04/21/20 04:00 67 04/21/20 04:00 Mechanical Ventilator 04/21/20 04:00 98.2 67 18 150/67 (94) 96 04/21/20 04:00 18 150/67 Mechanical Ventilator 100 04/21/20 04:00 100 04/21/20 03:45 72 17 164/71 (102) 96 04/21/20 03:30 80 22 151/98 (115) 95 04/21/20 03:30 22 151/98 Mechanical Ventilator 100 04/21/20 03:30 69 18 100 04/21/20 03:15 77 18 174/95 (121) 98 04/21/20 03:00 85 20 190/89 (122) 96 04/21/20 03:00 20 190/89 Mechanical Ventilator 100 04/21/20 03:00 20 190/89 Mechanical Ventilator 100 04/21/20 02:45 82 21 173/91 (118) 94 04/21/20 02:30 20 177/86 Mechanical Ventilator 100 04/21/20 02:30 79 20 177/86 (116) 95 04/21/20 02:15 77 20 175/79 (111) 95 04/21/20 02:00 22 181/81 Mechanical Ventilator 100 04/21/20 02:00 22 181/81 Mechanical Ventilator 100 04/21/20 02:00 75 22 184/83 (116) 95 04/21/20 01:45 71 18 173/81 (111) 95 04/21/20 01:45 18 173/81 Mechanical Ventilator 100 04/21/20 01:45 18 173/81 Mechanical Ventilator 100 04/21/20 01:31 20 167/81 Mechanical Ventilator 100 04/21/20 01:30 18 164/80 Mechanical Ventilator 100 04/21/20 01:30 70 18 164/80 (108) 96 04/21/20 01:15 19 167/81 Mechanical Ventilator 100 04/21/20 01:15 73 19 167/81 (109) 96 04/21/20 01:00 70 18 168/81 (110) 96 04/21/20 01:00 18 168/61 Mechanical Ventilator 100 04/21/20 00:45 17 149/71 Mechanical Ventilator 100 04/21/20 00:45 68 17 149/71 (97) 97 04/21/20 00:30 56 18 120/57 (78) 96 04/21/20 00:15 56 18 115/59 (77) 96 04/21/20 00:00 50 04/21/20 00:00 97.8 50 18 116/61 (79) 95 04/21/20 00:00 18 116/61 Mechanical Ventilator 100 04/21/20 00:00 18 116/61 Mechanical Ventilator 100 04/21/20 00:00 Mechanical Ventilator 04/21/20 00:00 100 04/20/20 23:45 52 18 112/53 (72) 94 04/20/20 23:45 18 112/53 Mechanical Ventilator 100 04/20/20 23:30 52 18 112/53 (72) 95 04/20/20 23:30 18 112/53 Mechanical Ventilator 100 04/20/20 23:15 56 18 107/52 (70) 93 04/20/20 23:15 18 107/52 Mechanical Ventilator 100 04/20/20 23:00 18 104/51 Mechanical Ventilator 100 04/20/20 23:00 18 104/51 Mechanical Ventilator 100 04/20/20 23:00 55 18 104/51 (68) 93 04/20/20 22:47 59 18 100 04/20/20 22:00 65 16 125/60 (81) 95 04/20/20 22:00 16 125/60 Mechanical Ventilator 100 04/20/20 22:00 16 125/60 Mechanical Ventilator 100 04/20/20 21:00 60 18 148/66 (93) 96 04/20/20 21:00 18 148/66 Mechanical Ventilator 100 04/20/20 21:00 18 148/66 Mechanical Ventilator 100 04/20/20 20:00 97.8 55 18 125/66 (85) 96 04/20/20 20:00 Mechanical Ventilator 04/20/20 20:00 18 125/66 Mechanical Ventilator 100 04/20/20 20:00 18 125/66 Mechanical Ventilator 100 04/20/20 20:00 100 04/20/20 19:30 55 04/20/20 19:15 54 18 100 04/20/20 19:00 53 18 106/53 (70) 95 04/20/20 19:00 18 106/53 Mechanical Ventilator 100 04/20/20 19:00 18 100/53 Mechanical Ventilator 100 04/20/20 18:46 18 117/60 Mechanical Ventilator 100 04/20/20 18:45 18 117/60 Mechanical Ventilator 100 04/20/20 18:06 61 18 138/65 (89) 97 04/20/20 18:00 18 138/65 Mechanical Ventilator 100 04/20/20 18:00 18 138/65 Mechanical Ventilator 100 04/20/20 17:00 69 18 131/60 (83) 90 04/20/20 17:00 18 131/60 Mechanical Ventilator 70 04/20/20 17:00 18 131/60 Mechanical Ventilator 70 04/20/20 16:01 98.0 04/20/20 16:00 90 04/20/20 16:00 73 04/20/20 16:00 70 18 124/61 (82) 89 04/20/20 16:00 18 124/61 Mechanical Ventilator 70 04/20/20 16:00 18 124/61 Mechanical Ventilator 70 04/20/20 16:00 Mechanical Ventilator 04/20/20 15:15 58 18 108/57 (74) 98 04/20/20 15:10 59 18 70 04/20/20 15:00 18 108/57 Mechanical Ventilator 70 04/20/20 15:00 18 108/57 Mechanical Ventilator 70 04/20/20 14:36 18 109/57 Mechanical Ventilator 70 Intake and Output 04/20/20 04/21/20 19:00 07:00 Intake Total 1700 ml 1415.25 ml Output Total 380 ml 2010 ml Balance 1320 ml -594.75 ml Free Water 200 ml IV Total 840 ml 815.25 ml Tube Feeding 600 ml 550 ml Other 60 ml 50 ml Output Urine Total 355 ml 1980 ml Stool Total 25 ml 30 ml Laboratory Tests 04/21/20 03:45: Sodium Level 141, Potassium Level 4.2, Chloride Level 103, Carbon Dioxide Level 33H, Anion Gap 5, Blood Urea Nitrogen 17, Creatinine 0.4L, Estimat Glomerular Filtration Rate > 60, Glucose Level 126H, Calcium Level 8.6, Magnesium Level 2.4, Pro-B-Type Natriuretic Peptide 528H 04/21/20 08:16: Arterial Blood pH 7.338L, Arterial Blood Partial Pressure CO2 66.1*H, Arterial Blood Partial Pressure O2 225.9H, Arterial Blood HCO3 34.7H, Arterial Blood Oxygen Saturation 98.4, Arterial Blood Base Excess 7.2H, Shemar Test Positive Height (Feet): 5 Height (Inches): 10.00 Weight (Pounds): 240 General Appearance: no apparent distress EENT: normal ENT inspection Neck: supple Cardiovascular: normal rate Respiratory/Chest: decreased breath sounds Abdomen: normal bowel sounds, non tender, soft Extremities: non-tender Assessment/Plan Status: not improved, unchanged Assessment/Plan: hep c + but neg RNA OGTF reglan 10 mg repeat labs fu LFTS>>>improving worsening resp status will fu Da Quintero MD Apr 21, 2020 14:11
--- NOTE | 2020-04-21 14:16 | NUR ---
NURSE NOTES: Dr Quintero on the unit making his rounds. Updated him on pt's current condition. Pt tolerating tube feeds. No new orders given at this time.
--- NOTE | 2020-04-21 16:00 | NUR ---
NURSE NOTES: Pt turned and repositioned for comfort. Pt continues to awake periodically and trigger the vent alarms. Pt remains on Fentanyl 300mcg/hr and Versed 20mg/hr.
[2020-04-21] MEDS: Bactrim-DS 1 tab ORAL SCH (16:45)
--- NOTE | 2020-04-21 17:27 | NUR ---
NURSE NOTES: Pt fully cleaned and linens changed.
--- NOTE | 2020-04-21 17:53 | NUR ---
INSURANCE CLINCALS/REVIEW FAXED TO [employer] T: [phone] #1 F: [phone] AND [employer] PRO[employer] ASSISTANT:JACQUELINE JAMES T: [phone] F: [phone]
--- NOTE | 2020-04-21 19:07 | NUR ---
NURSE HAND-OFF REPORT: Latest Vital Signs: Temperature 98.4 , Pulse 66 , B/P 104 /60 , Respiratory Rate 18 , O2 SAT 97 , Mechanical Ventilator, FiO2 90% . Vital Sign Comment: EKG Rhythm: Sinus Rhythm Rhythm change?: N MD Notified?: MD Response: Latest Hassan Fall Score: 50 Fall Risk: High Risk Safety Measures: Call light Within Reach, Bed Alarm Zone 3, Side Rails Side Rails x3, Bed position Low and Locked. Fall Precautions: Yellow Socks Yellow Gown Door Sign Patient Fall Education Report given to PRIYANKA Mantilla.
[2020-04-21] MEDS: Dyna-Hex 2% Top Sol 2oz TOPIC SCH (19:36)
--- NOTE | 2020-04-21 19:40 | NUR ---
NURSE NOTES: PATIENT SEDATED, ON ETT TO VENT, AC 18/TV750/FIO2 90%/PEEP 5, O2 SATURATION 97% NOTED, OGT INTACT AND PATENT, ONGOING GLUCERNA 1.5 AT 50ML/HR, NO RESIDUE NOTED, KEPT HOB 30 DEGREES AND ASPIRATION PRECAUTION, ABDOMEN SOFT, NON TENDER, RECTAL TUBE INTACT AND PATENT, F/C INTACT AND PATENT, NAYELI COLOR URINE OUTED, PICC LINE TO RIGHT UPPER ARM, INTACT AND PATENT, ONGOING FENTANYL 300MCG/HR, VERSED 20MG/HR VIA PICC LINE, KEPT RASS SCORE -2, 1 POINT SOFT RESTRAINT TO RIGHT WRIST STATUS, ON P200 BED, MADE LOWER BED POSITION, ON BED ALARM AND LOCKED, WILL CONTINUE TO MONITOR.
--- NOTE | 2020-04-21 22:14 | NUR ---
NURSE NOTES: GIVEN MORPHINE 4MG BY IVP SLOWLY FOR AGITATION PRN ORDERED, WILL CONTINUE TO MONITOR.
[2020-04-22] VITALS (29 sets, daily range): BP systolic 103–209; BP diastolic 54–99
--- NOTE | 2020-04-22 00:30 | NUR ---
NURSE NOTES: PATIENT ASLEEP STATUS, NO PAIN OR SOB NOTED AT THIS TIME.
--- NOTE | 2020-04-22 02:31 | NUR ---
NURSE NOTES: KEPT RASS SCORE -2 WITH FENTANYL 300MCG/HR AND VERSED 20MG/HR , NO ACUTE DISTRESS NOTED AT THIS TIME.
[2020-04-22] MEDS: Metoclopramide 10mg/2ml Inj IVP SCH ×4 (02:36→20:30)
[2020-04-22] MEDS: Versed 100mg/NS 200ml 200 ML IV PRN ×4 (03:29→23:14)
[2020-04-22] MEDS: Morphine Sulfate 4mg/ml Inj IVP PRN ×2 (04:28→19:38)
--- NOTE | 2020-04-22 04:50 | NUR ---
NURSE NOTES: MORNING CARE AND ORAL CARE WAS DONE.
[2020-04-22] MEDS: fentaNYL 2500mcg/NS 250ml 250 ML IV SCH ×3 (05:20→21:39)
[2020-04-22] MEDS: NovoLOG Insulin Flexpen SUBQ SCH ×4 (05:33→23:30)
--- NOTE | 2020-04-22 06:46 | NUR ---
NURSE NOTES: NO ACUTE DISTRESS NOTED AT THIS SHIFT.
--- NOTE | 2020-04-22 07:20 | NUR ---
NURSE HAND-OFF REPORT: Latest Vital Signs: Temperature 98.1 , Pulse 61 , B/P 110 /59 , Respiratory Rate 18 , O2 SAT 93 , Mechanical Ventilator, O2 Flow Rate . Vital Sign Comment: EKG Rhythm: Sinus Rhythm Rhythm change?: N Notified?: N -Dr.Toluie INTERIANO Response: Message left await call Latest Hassan Fall Score: 50 Fall Risk: High Risk Safety Measures: Call light Within Reach, Bed Alarm Zone 3, Side Rails Side Rails x3, Bed position Low and Locked. Fall Precautions: Yellow Socks Door Sign Patient Fall Education Report given to PRIYANKA LOZANO.
[2020-04-22 07:21] LABS: BASOPHILS % (AUTO) 0.5 % (0.0-2.0); EOSINOPHILS % (AUTO) 0.3 % (0.0-3.0); HEMATOCRIT 27.7 % (42.0-52.0); HEMOGLOBIN 8.7 G/DL (14.2-18.0); LYMPHOCYTES % (AUTO) 12.9 % (20.0-45.0); MEAN CORPUSCULAR VOLUME 91 FL (80-99); MONOCYTES % (AUTO) 5.1 % (1.0-10.0); NEUTROPHILS % (AUTO) 81.1 % (45.0-75.0); PLATELET COUNT 276 K/UL (150-450); RED BLOOD COUNT 3.04 M/UL (4.70-6.10); RED CELL DISTRIBUTION WIDTH 17.6 % (11.6-14.8); WHITE BLOOD COUNT 4.6 K/UL (4.8-10.8)
--- NOTE | 2020-04-22 07:21 | NUR ---
NURSE NOTES: Received bedside report from PRIYANKA Mantilla. Pt's VSS, no signs of distress noted. Pt sedated but opens eyes spontaneously, able to move right upper extremity. 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 Pt's respirations even and unlabored, ETT size 8 at 25 cm lip line with the following vent settings: A/C 18, T/V 750, 90% FiO2, Peep 5, O2 sat between 90-95%. Pt has Glucerna 1.5 running at 50mL/hr via OGT, 70mL of yellow residual noted. Pt has rectal tube, liquid brown stool noted. Pt has joseph catheter, draining well, dark yellow urine noted. Skin alterations noted in chart and covered with optifoam. Pt has ALBERT PICC, no signs of infection or complication noted from site, dressing clean dry and intact. Pt has Fentanyl drip running at 300mcg/hr and Versed at 20mg/hr. Pt has right hand restraints, no signs of injury noted from extremity. HOB at 30 degrees. Bed locked and in lowest position. Safety precautions maintained. Will continue to monitor.
[2020-04-22 07:35] LABS: ALANINE AMINOTRANSFERASE 58 U/L (12-78); ALBUMIN 2.1 G/DL (3.4-5.0); ALBUMIN/GLOBULIN RATIO 0.7 (1.0-2.7); ALKALINE PHOSPHATASE 165 U/L (46-116); ANION GAP 4 mmol/L (5-15); ASPARTATE AMINO TRANSFERASE 16 U/L (15-37); BILIRUBIN,TOTAL 0.4 MG/DL (0.2-1.0); BLOOD UREA NITROGEN 15 mg/dL (7-18); CALCIUM 8.3 MG/DL (8.5-10.1); CARBON DIOXIDE 33 MMOL/L (21-32); CHLORIDE 105 MMOL/L (98-107); CREATININE 0.4 MG/DL (0.55-1.30); PHOSPHORUS 8.8 MG/DL (2.5-4.9); POTASSIUM 4.6 MMOL/L (3.5-5.1); SODIUM 142 MMOL/L (136-145)
--- NOTE | 2020-04-22 07:39 | General Progress Note ---
Subjective ROS Limited/Unobtainable: No Allergies: Coded Allergies: No Known Allergies (Unverified , 02/05/20) Objective Last 24 Hour Vital Signs Date Time Temp Pulse Resp B/P (MAP) Pulse Ox O2 Delivery O2 Flow Rate FiO2 04/22/20 07:00 61 18 110/59 (76) 93 04/22/20 07:00 18 110/59 Mechanical Ventilator 90 04/22/20 07:00 18 110/59 Mechanical Ventilator 90 04/22/20 06:15 73 18 157/66 (96) 93 04/22/20 06:00 20 172/84 Mechanical Ventilator 90 04/22/20 06:00 20 172/84 Mechanical Ventilator 90 04/22/20 06:00 88 20 172/84 (113) 93 04/22/20 05:20 18 137/73 Mechanical Ventilator 90 04/22/20 05:00 15 156/78 Mechanical Ventilator 90 04/22/20 05:00 15 156/78 Mechanical Ventilator 90 04/22/20 05:00 98.1 76 15 156/78 (104) 96 04/22/20 04:00 70 04/22/20 04:00 90 04/22/20 04:00 18 146/67 Mechanical Ventilator 90 04/22/20 04:00 18 146/67 Mechanical Ventilator 90 04/22/20 04:00 Mechanical Ventilator 04/22/20 04:00 70 18 146/67 (93) 98 04/22/20 03:33 57 18 90 04/22/20 03:29 18 116/58 Mechanical Ventilator 90 04/22/20 03:00 61 18 111/54 (73) 96 04/22/20 02:00 18 108/59 Mechanical Ventilator 90 04/22/20 02:00 18 108/59 Mechanical Ventilator 50 04/22/20 02:00 57 18 108/59 (75) 97 04/22/20 01:00 18 112/59 Endotracheal Tube 90 04/22/20 01:00 18 112/59 Mechanical Ventilator 90 04/22/20 01:00 63 18 112/59 (76) 96 04/22/20 00:00 Mechanical Ventilator 04/22/20 00:00 90 04/22/20 00:00 23 150/67 Mechanical Ventilator 90 04/22/20 00:00 23 150/67 Mechanical Ventilator 90 04/22/20 00:00 75 04/22/20 00:00 98.0 75 23 150/67 (94) 95 04/21/20 23:27 81 18 90 04/21/20 23:00 16 148/73 Mechanical Ventilator 90 04/21/20 23:00 16 148/73 Mechanical Ventilator 90 04/21/20 23:00 76 16 148/73 (98) 95 04/21/20 22:31 18 170/92 Mechanical Ventilator 90 04/21/20 22:00 17 148/74 Mechanical Ventilator 90 04/21/20 22:00 17 148/74 Mechanical Ventilator 90 04/21/20 22:00 69 17 148/74 (98) 98 04/21/20 21:06 18 107/60 Mechanical Ventilator 90 04/21/20 21:00 58 18 107/60 (76) 98 04/21/20 21:00 18 107/60 Mechanical Ventilator 90 04/21/20 21:00 18 107/60 Mechanical Ventilator 90 04/21/20 20:00 Mechanical Ventilator 04/21/20 20:00 18 111/62 Mechanical Ventilator 90 04/21/20 20:00 18 111/62 Mechanical Ventilator 90 04/21/20 20:00 90 04/21/20 20:00 98.1 60 18 111/62 (78) 97 04/21/20 19:54 59 04/21/20 19:32 58 18 90 04/21/20 19:00 18 104/60 Mechanical Ventilator 90 04/21/20 19:00 18 104/60 Mechanical Ventilator 90 04/21/20 19:00 66 18 104/60 (75) 97 04/21/20 18:00 18 122/59 Mechanical Ventilator 90 04/21/20 18:00 18 122/59 Mechanical Ventilator 90 04/21/20 18:00 72 25 122/59 (80) 96 04/21/20 17:30 19 152/82 Mechanical Ventilator 90 04/21/20 17:00 86 19 147/79 (101) 94 04/21/20 17:00 18 147/79 Mechanical Ventilator 90 04/21/20 17:00 18 147/79 Mechanical Ventilator 90 04/21/20 16:00 98.4 76 17 156/73 (100) 95 04/21/20 16:00 Mechanical Ventilator 04/21/20 16:00 76 04/21/20 16:00 90 2/19/21 16:00 18 156/73 Mechanical Ventilator 90 04/21/20 16:00 18 156/73 Mechanical Ventilator 90 04/21/20 15:30 79 20 161/89 (113) 95 04/21/20 15:27 76 18 90 04/21/20 15:00 82 20 147/80 (102) 95 04/21/20 15:00 20 147/80 Mechanical Ventilator 90 04/21/20 15:00 20 147/80 Mechanical Ventilator 90 04/21/20 14:00 20 164/71 Mechanical Ventilator 90 04/21/20 14:00 20 164/71 Mechanical Ventilator 90 04/21/20 14:00 79 13 164/71 (102) 95 04/21/20 13:00 81 20 143/73 (96) 91 04/21/20 13:00 20 129/65 Mechanical Ventilator 90 04/21/20 13:00 20 129/65 Mechanical Ventilator 90 04/21/20 12:40 22 154/69 Mechanical Ventilator 90 04/21/20 12:30 22 151/73 Mechanical Ventilator 90 04/21/20 12:00 Mechanical Ventilator 04/21/20 12:00 90 04/21/20 12:00 19 132/67 Mechanical Ventilator 90 04/21/20 12:00 19 132/67 Mechanical Ventilator 90 04/21/20 12:00 76 04/21/20 12:00 98.9 76 21 132/67 (88) 88 04/21/20 11:20 74 20 90 04/21/20 11:00 18 119/59 Mechanical Ventilator 90 04/21/20 11:00 19 119/59 Mechanical Ventilator 90 04/21/20 11:00 76 19 119/59 (79) 87 04/21/20 10:00 82 21 108/53 (71) 89 04/21/20 10:00 20 120/58 Mechanical Ventilator 90 04/21/20 10:00 20 120/58 Mechanical Ventilator 90 04/21/20 09:30 82 18 102/52 (69) 90 04/21/20 09:00 93 20 109/59 (76) 94 04/21/20 09:00 19 102/53 Mechanical Ventilator 90 04/21/20 09:00 19 102/53 Mechanical Ventilator 90 04/21/20 08:43 90 04/21/20 08:30 94 20 148/72 (97) 94 04/21/20 08:00 100 04/21/20 08:00 Mechanical Ventilator 04/21/20 08:00 22 143/69 Mechanical Ventilator 90 04/21/20 08:00 22 143/69 Mechanical Ventilator 100 04/21/20 08:00 94 04/21/20 08:00 98.9 94 19 136/65 (88) 94 Intake and Output 04/21/20 04/22/20 19:00 07:00 Intake Total 1657.83 ml 1600.0 ml Output Total 920 ml 670 ml Balance 737.83 ml 930.0 ml IV Total 947.83 ml 950.0 ml Tube Feeding 550 ml 600 ml Other 160 ml 50 ml Output Urine Total 920 ml 650 ml Stool Total 0 ml 20 ml Laboratory Tests 04/21/20 08:16: Arterial Blood pH 7.338L, Arterial Blood Partial Pressure CO2 66.1*H, Arterial Blood Partial Pressure O2 225.9H, Arterial Blood HCO3 34.7H, Arterial Blood Oxygen Saturation 98.4, Arterial Blood Base Excess 7.2H, Shemar Test Positive 04/22/20 05:27: White Blood Count 4.6L, Red Blood Count 3.04L, Hemoglobin 8.7L, Hematocrit 27.7L , Mean Corpuscular Volume 91, Mean Corpuscular Hemoglobin 28.7, Mean Corpuscular Hemoglobin Concent 31.4L, Red Cell Distribution Width 17.6H, Platelet Count 276, Mean Platelet Volume 6.3L, Neutrophils (%) (Auto) 81.1H, Lymphocytes (%) (Auto) 12.9L, Monocytes (%) (Auto) 5.1, Eosinophils (%) (Auto) 0.3, Basophils (%) (Auto) 0.5, Sodium Level [Pending], Potassium Level [Pending], Chloride Level [Pending], Carbon Dioxide Level [Pending], Blood Urea Nitrogen [Pending], Creatinine [Pending], Estimat Glomerular Filtration Rate [Pending], Glucose Level [Pending], Uric Acid [Pending], Calcium Level [Pending], Phosphorus Level [Pending], Magnesium Level [Pending], Total Bilirubin [Pending], Aspartate Amino Transf (AST/SGOT) [Pending], Alanine Aminotransferase (ALT/SGPT) [Pending], Alkaline Phosphatase [Pending], C-Reactive Protein, Quantitative [Pending], Pro-B-Type Natriuretic Peptide [Pending], Total Protein [Pending], Albumin [Pending], Globulin [Pending] Height (Feet): 5 Height (Inches): 10.00 Weight (Pounds): 240 General Appearance: no apparent distress EENT: PERRL/EOMI Neck: supple Cardiovascular: normal rate Respiratory/Chest: decreased breath sounds Abdomen: hypoactive bowel sounds Extremities: non-tender Assessment/Plan Status: not improved, unchanged Assessment/Plan: hep c + but neg RNA OGTF reglan 10 mg repeat labs fu LFTS>>>improving worsening resp status will fu Da Quintero MD Apr 22, 2020 07:39
--- NOTE | 2020-04-22 08:27 | NUR ---
RD ASSESSMENT & RECOMMENDATIONS SEE CARE ACTIVITY FOR COMPLETE ASSESSMENT DAILY ESTIMATED NEEDS: Needs based on Critical care, wound 81kg abw 22-28 kcals/kg 3869-6584 total kcals 1.25-1.5 g protein/kg 101-122 g total protein 25-30 mL/kg 2950-4991 total fluid mLs NUTRITION DIAGNOSIS: * Inadequate oral intake R/T clinical and respiratory status as evidenced by COVID-19 ++, on continuous BIPAP, prolonged meal refusals, pt is now on TPN, pt is now orally intubated (03/28), now on OGT feeds. * Decreased sodium and fat needs r/t HTN and obesity as evidenced by pt w/ cardiac history, elev BP (159/98-> now improved, on BP meds and diuretics), BMI >30, obese per guidelines. (INACTIVE) CURRENT TF:Glucerna 1.5 goal of 50 + Prosource BID ENTERAL NUTRITION RECOMMENDATIONS: Glucerna 1.5 @ 50ml/hr x 24 hrs + Prosource 1pkt BID to provide 1200ml, 1800kcal, 99g prot, 926ml free water * Maintain current TF @ goal as tolerated * Con't Prosource 1pkt BID (additional 22g prot) to better meet est prot needs. ADDITIONAL RECOMMENDATIONS: 1) Maintain calibrated bedscale wts 2) Obtain HgA1C for eval 3) Pt now w/ rectal tube-> lactulose now dc'ed, rec probiotics 4) Off tpn, LFT's trending down. 5) Monitor lytes, replete as needed/ phos elev 04/22, monitor trend 6) Monitor BGs- improved .
--- NOTE | 2020-04-22 09:30 | NUR ---
NURSE NOTES: Tube feeding placement checked, tip of tube in stomach. Tube feeding residual re-checked, 70mL noted. Scheduled medications given per MD order, pt tolerated well. Pt's VSS, afebrile, no signs of distress noted. Will continue to monitor.
[2020-04-22] MEDS: Lansoprazole 15mg cap GT SCH ×2 (09:44→20:31)
[2020-04-22] MEDS: Solu-MEDROL 40mg Inj IVP SCH ×2 (09:44→20:30)
[2020-04-22] MEDS: Enoxaparin 80mg Inj SUBQ SCH ×2 (09:45→20:31)
--- NOTE | 2020-04-22 10:25 | Surgery Progress Note ---
Surgery Progress Note Subjective Additional Comments no acute events labs noted exam stable Objective Last 24 Hour Vital Signs Date Time Temp Pulse Resp B/P (MAP) Pulse Ox O2 Delivery O2 Flow Rate FiO2 04/22/20 10:00 60 18 116/61 (79) 95 04/22/20 09:47 18 109/54 Mechanical Ventilator 90 04/22/20 09:00 57 18 108/56 (73) 94 04/22/20 08:00 Mechanical Ventilator 04/22/20 08:00 97.8 56 18 103/56 (72) 93 04/22/20 08:00 90 04/22/20 07:46 57 04/22/20 07:27 58 18 90 04/22/20 07:00 61 18 110/59 (76) 93 04/22/20 07:00 18 110/59 Mechanical Ventilator 90 04/22/20 07:00 18 110/59 Mechanical Ventilator 90 04/22/20 06:15 73 18 157/66 (96) 93 04/22/20 06:00 20 172/84 Mechanical Ventilator 90 04/22/20 06:00 20 172/84 Mechanical Ventilator 90 04/22/20 06:00 88 20 172/84 (113) 93 04/22/20 05:20 18 137/73 Mechanical Ventilator 90 04/22/20 05:00 15 156/78 Mechanical Ventilator 90 04/22/20 05:00 15 156/78 Mechanical Ventilator 90 04/22/20 05:00 98.1 76 15 156/78 (104) 96 04/22/20 04:00 70 04/22/20 04:00 90 04/22/20 04:00 18 146/67 Mechanical Ventilator 90 04/22/20 04:00 18 146/67 Mechanical Ventilator 90 04/22/20 04:00 Mechanical Ventilator 04/22/20 04:00 70 18 146/67 (93) 98 04/22/20 03:33 57 18 90 04/22/20 03:29 18 116/58 Mechanical Ventilator 90 04/22/20 03:00 61 18 111/54 (73) 96 04/22/20 02:00 18 108/59 Mechanical Ventilator 90 04/22/20 02:00 18 108/59 Mechanical Ventilator 50 04/22/20 02:00 57 18 108/59 (75) 97 04/22/20 01:00 18 112/59 Endotracheal Tube 90 04/22/20 01:00 18 112/59 Mechanical Ventilator 90 04/22/20 01:00 63 18 112/59 (76) 96 04/22/20 00:00 Mechanical Ventilator 04/22/20 00:00 90 04/22/20 00:00 23 150/67 Mechanical Ventilator 90 04/22/20 00:00 23 150/67 Mechanical Ventilator 90 04/22/20 00:00 75 04/22/20 00:00 98.0 75 23 150/67 (94) 95 04/21/20 23:27 81 18 90 04/21/20 23:00 16 148/73 Mechanical Ventilator 90 04/21/20 23:00 16 148/73 Mechanical Ventilator 90 04/21/20 23:00 76 16 148/73 (98) 95 04/21/20 22:31 18 170/92 Mechanical Ventilator 90 04/21/20 22:00 17 148/74 Mechanical Ventilator 90 04/21/20 22:00 17 148/74 Mechanical Ventilator 90 04/21/20 22:00 69 17 148/74 (98) 98 04/21/20 21:06 18 107/60 Mechanical Ventilator 90 04/21/20 21:00 58 18 107/60 (76) 98 04/21/20 21:00 18 107/60 Mechanical Ventilator 90 04/21/20 21:00 18 107/60 Mechanical Ventilator 90 04/21/20 20:00 Mechanical Ventilator 04/21/20 20:00 18 111/62 Mechanical Ventilator 90 04/21/20 20:00 18 111/62 Mechanical Ventilator 90 04/21/20 20:00 90 04/21/20 20:00 98.1 60 18 111/62 (78) 97 04/21/20 19:54 59 04/21/20 19:32 58 18 90 04/21/20 19:00 18 104/60 Mechanical Ventilator 90 04/21/20 19:00 18 104/60 Mechanical Ventilator 90 04/21/20 19:00 66 18 104/60 (75) 97 04/21/20 18:00 18 122/59 Mechanical Ventilator 90 04/21/20 18:00 18 122/59 Mechanical Ventilator 90 04/21/20 18:00 72 25 122/59 (80) 96 04/21/20 17:30 19 152/82 Mechanical Ventilator 90 04/21/20 17:00 86 19 147/79 (101) 94 04/21/20 17:00 18 147/79 Mechanical Ventilator 90 04/21/20 17:00 18 147/79 Mechanical Ventilator 90 04/21/20 16:00 98.4 76 17 156/73 (100) 95 04/21/20 16:00 Mechanical Ventilator 04/21/20 16:00 76 04/21/20 16:00 90 04/21/20 16:00 18 156/73 Mechanical Ventilator 90 04/21/20 16:00 18 156/73 Mechanical Ventilator 90 04/21/20 15:30 79 20 161/89 (113) 95 04/21/20 15:27 76 18 90 04/21/20 15:00 82 20 147/80 (102) 95 04/21/20 15:00 20 147/80 Mechanical Ventilator 90 04/21/20 15:00 20 147/80 Mechanical Ventilator 90 04/21/20 14:00 20 164/71 Mechanical Ventilator 90 04/21/20 14:00 20 164/71 Mechanical Ventilator 90 04/21/20 14:00 79 13 164/71 (102) 95 04/21/20 13:00 81 20 143/73 (96) 91 04/21/20 13:00 20 129/65 Mechanical Ventilator 90 04/21/20 13:00 20 129/65 Mechanical Ventilator 90 04/21/20 12:40 22 154/69 Mechanical Ventilator 90 04/21/20 12:30 22 151/73 Mechanical Ventilator 90 04/21/20 12:00 Mechanical Ventilator 04/21/20 12:00 90 04/21/20 12:00 19 132/67 Mechanical Ventilator 90 04/21/20 12:00 19 132/67 Mechanical Ventilator 90 04/21/20 12:00 76 04/21/20 12:00 98.9 76 21 132/67 (88) 88 04/21/20 11:20 74 20 90 04/21/20 11:00 18 119/59 Mechanical Ventilator 90 04/21/20 11:00 19 119/59 Mechanical Ventilator 90 04/21/20 11:00 76 19 119/59 (79) 87 I&O Intake and Output 04/21/20 04/22/20 19:00 07:00 Intake Total 1657.83 ml 1600.0 ml Output Total 920 ml 670 ml Balance 737.83 ml 930.0 ml IV Total 947.83 ml 950.0 ml Tube Feeding 550 ml 600 ml Other 160 ml 50 ml Output Urine Total 920 ml 650 ml Stool Total 0 ml 20 ml Dressing: saturated Cardiovascular: RSR Respiratory: decreased breath sounds Abdomen: soft, non-tender, present bowel sounds Extremities: no tenderness, no cyanosis Laboratory Tests Test 04/22/20 05:27 White Blood Count 4.6 K/UL (4.8-10.8) L Red Blood Count 3.04 M/UL (4.70-6.10) L Hemoglobin 8.7 G/DL (14.2-18.0) L Hematocrit 27.7 % (42.0-52.0) L Mean Corpuscular Volume 91 FL (80-99) Mean Corpuscular Hemoglobin 28.7 PG (27.0-31.0) Mean Corpuscular Hemoglobin Concent 31.4 G/DL (32.0-36.0) L Red Cell Distribution Width 17.6 % (11.6-14.8) H Platelet Count 276 K/UL (150-450) Mean Platelet Volume 6.3 FL (6.5-10.1) L Neutrophils (%) (Auto) 81.1 % (45.0-75.0) H Lymphocytes (%) (Auto) 12.9 % (20.0-45.0) L Monocytes (%) (Auto) 5.1 % (1.0-10.0) Eosinophils (%) (Auto) 0.3 % (0.0-3.0) Basophils (%) (Auto) 0.5 % (0.0-2.0) Sodium Level 142 MMOL/L (136-145) Potassium Level 4.6 MMOL/L (3.5-5.1) Chloride Level 105 MMOL/L (98-107) Carbon Dioxide Level 33 MMOL/L (21-32) H Anion Gap 4 mmol/L (5-15) L Blood Urea Nitrogen 15 mg/dL (7-18) Creatinine 0.4 MG/DL (0.55-1.30) L Estimat Glomerular Filtration Rate > 60 mL/min (>60) Glucose Level 117 MG/DL (74-106) H Uric Acid 1.3 MG/DL (2.6-7.2) L Calcium Level 8.3 MG/DL (8.5-10.1) L Phosphorus Level 8.8 MG/DL (2.5-4.9) H Magnesium Level 2.3 MG/DL (1.8-2.4) Total Bilirubin 0.4 MG/DL (0.2-1.0) Aspartate Amino Transf (AST/SGOT) 16 U/L (15-37) Alanine Aminotransferase (ALT/SGPT) 58 U/L (12-78) Alkaline Phosphatase 165 U/L (46-116) H C-Reactive Protein, Quantitative 2.2 mg/dL (0.00-0.90) H Pro-B-Type Natriuretic Peptide 835 pg/mL (0-125) H Total Protein 5.1 G/DL (6.4-8.2) L Albumin 2.1 G/DL (3.4-5.0) L Globulin 3.0 g/dL Albumin/Globulin Ratio 0.7 (1.0-2.7) L Plan Problems: (1) Pneumonia (2) Staphylococcus aureus bacteremia (3) COVID-19 virus infection (4) Chest pain (5) Hypertension (6) Dehydration (7) Electrolyte imbalance (8) DMII (diabetes mellitus, type 2) (9) Protein malnutrition (10) Respiratory insufficiency Assessment & Plan: 64-year-old male with respiratory insufficiency intubated in an intensive care unit. Patient has been unable to safely wean off ventilatory support. Surgery called to evaluate for tracheostomy. After careful evaluation patient is a candidate for tracheostomy. In the meantime will obtain consent. If consent obtained will proceed with scheduling. Thank you for your participation's care will follow recommendations Booker Rausch Apr 22, 2020 10:25
--- NOTE | 2020-04-22 10:45 | NUR ---
NURSE NOTES: MD Mata at bedside to assess pt. Made MD Mata aware of pt's HR in the 50s, Versed rate decreased. No signs of distress noted. Safety precautions maintained. Will continue to monitor.
--- NOTE | 2020-04-22 11:24 | NUR ---
CASE MANAGEMENT:REVIEW 04/22/20 SI: COVID PNEUMONIA~INTUBATED 97.8 56 18 103/56 93% ON VENT SUPPORT W/90% FIO2 PEEP~5.0 H/H/-8.7/27.7 CO2+33 IS: IV LASIX QD FENTANYL GTT VERSED GTT IV ZOSYN Q8HRS IV SOLUMEDROL 20MG Q12 LOVENOX SQ Q12 PREVACID NG Q12 BACTRIM NG Q24 IV REGLAN Q6HRS : ICU STATUS DCP: LIVES IN A HOTEL PLAN: NON VIOLENT RESTRAINTS
--- NOTE | 2020-04-22 11:37 | Nephrology Progress Note ---
Assessment/Plan Problem List: (1) Dehydration (2) Electrolyte imbalance (3) COVID-19 virus infection (4) Pneumonia (5) DMII (diabetes mellitus, type 2) (6) Protein malnutrition Assessment Azotemia, hypernatremia Hypoalbuminemia Staff Otilia bacteremia COVID-19 isolation, pneumonia, bilateral infiltrate Hypertension Diabetes mellitus History of smoking Plan April 22: Labs reviewed. Patient remains intubated on ventilator and full code. FiO2 90%. Day 77 hospitalization. Not much to add from renal standpoint of view April 21: No CHEM panel drawn today. FiO2 60%. Patient full code. Continue per consultants. April 20: Labs reviewed. Renal parameters stable. Patient remains full code. Intubated on ventilator with FiO2 currently at 70%. Continue per consultants. April 19: No labs drawn today. Remains full code on FiO2 of 100%. Continue per consultants. April 18: Status quo. Labs reviewed. Renal parameters stable. April 17: Status quo. Intubated on ventilator. Full code. Labs reviewed. Electrolytes and renal parameters stable. Continue per consultants. April 16: Girlfriend in the room. Patient awake. Intubated. Full code. Labs reviewed. Abnormal electrolyte addressed. Continue per consultants. April 15: Labs reviewed. Electrolytes and renal parameters stable. Patient full code. Continues to be intubated on ventilator. April 14: Status quo. Labs reviewed. Remains intubated on ventilator. Full code. Continue per consultants. April 13: Status quo. Labs reviewed. Renal parameters electrolytes stable. Continue per current treatment plan. April 12: On higher FiO2. Will resume Lasix daily. Continue to monitor electrolytes and renal parameters. Per consultants. April 11: FiO2 went up to 85%. Renal parameters and electrolytes reasonably well-maintained. Will monitor serum potassium. Will give IV Lasix. April 10: Status quo. Labs reviewed. Remains intubated on ventilator with FiO2 of 65%. Remains full code. Stable from renal standpoint to view. Repeat vitamin D level on April 08 pending April 09: Status quo. Labs reviewed. Stable from renal standpoint of view. Continue per consultants. April 08: Discussed with RN. Labs reviewed. Clinically improving. Requires lower PEEP. Continue per pulmonary. Continue to monitor renal parameters. April 07: Remains full code and on ventilator. Labs reviewed. Renal parameters and electrolytes stable. Continue per consultants. Blood pressure marginally improved. April 06: Full code. On ventilator. Blood pressure 80-90 systolic. IV Lasix discontinued. Free water through tube feeding ordered. Continue to monitor electrolytes and serum sodium. Down on fentanyl as possible. Discussed with RN Kevin. Clonidine patch discontinued. April 05: Status quo. Remains full code. Remains intubated. Labs reviewed. Renal parameters stable. Serum sodium 150 unchanged. Continue per consultants. April 04: Remains intubated and on ventilator. Remains full code. Labs reviewed. Serum sodium 150 unchanged. Renal parameters stable. Continue per ID and pulmonary. April 03: Intubated. On ventilator. Full code. Labs reviewed. Serum sodium 150 unchanged. Continue to monitor renal parameters. Continue per pulmonary and ID. April 02: Full code. On ventilator. Discussed with RN. Serum sodium sligh tly higher. Will cut down on IV Lasix. Continue per consultants. Continue to monitor renal parameters and electrolytes. April 01: Full code. Remains on ventilator. Labs reviewed. Stable from renal standpoint of view. Continue per consultants. March 31: Full code . Remains intubated on ventilator. Labs reviewed. Patient appears toxic. Discussed with RN. Maintenance IV discontinued. Medication list reviewed. Blood pressure medication stopped due to low blood pressure. Levemir insulin stopped. Continue monitor blood sugar and sliding scale insulin. March 30: Full code. On ventilator. Labs reviewed. Clonidine patch dose increased. Lasix increased. 3% saline 1 time ordered. Continue to monitor electrolytes and renal parameters. March 29: Remains full code. On mechanical ventilation. On tube feeding. Will DC TPN. Will start on maintenance IV fluid. Continue to monitor renal parameters. March 28: On BiPAP. Full code. On TPN. Labs reviewed. Discussed with pharmacy. Continue as is. Watch serum potassium. March 27: Remains on BiPAP. No chemistry panel done today. Full code. On TPN. Will check lab tomorrow. March 26: Remains on BiPAP. Remains on TPN. Labs reviewed. Electrolytes and chemistries within normal limits. Continue as is. March 25: Remains on TPN. Labs reviewed. Discussed with pharmacy. Change IV Protonix to p.o. Continue 3% saline infusion with Lasix. Patient full code. March 24: Continue to be on TPN. Labs are reviewed. Aim to collect electrolytes. Discussed with pharmacy. Continue current consultants. March 23: Continues to be on TPN. Labs reviewed. Electrolytes and chemistries all acceptable. Discussed with pharmacy. Continue current management. March 22: On TPN. Labs reviewed. Low sodium noted. 3% saline to be continued. Continue to monitor electrolytes. Discussed with pharmacy. March 21: On TPN. Labs reviewed. Continue 3% saline and Lasix for mild hyponatremia. Continue TPN as these. Discussed with pharmacy. March 20: Remains on TPN. Labs reviewed. Serum sodium higher on IV Lasix and 3% saline infusion. Continue TPN as is. Continue to monitor renal parameters and electrolytes. Discussed with Dr. Mata March 19: Remains on TPN. Labs reviewed. Serum sodium 128. Will give 3% saline with IV Lasix. Continue to monitor electrolytes. No change in TPN composition. Discussed with pharmacy. March 18: Remains on TPN. Labs reviewed. Discussed with pharmacist. Will give 3 doses of IV Lasix 20 mg every 8 hours. Continue to monitor serum sodium electrolytes uric acid. White blood cells down. Continue per consultants. March 17: On TPN. Labs reviewed. Discussed with pharmacist. Sodium content increase. Continue to monitor CMP. Patient continues to have leukocytosis. March 16: On TPN. Labs reviewed. Discussed with pharmacist. Appropriate changes made. Continue to monitor electrolytes. March 15: Remains on TPN. Labs reviewed. Discussed with pharmacist. Continue per current management. March 14: Remains on TPN. Labs reviewed, stable. Vitamin D level low, replacement ordered. Continue to monitor electrolytes and renal parameters. March 13: Patient remains on TPN. Discussed with pharmacist. TPN's sodium content adjusted. Labs reviewed. Continue to monitor electrolytes. Blood pressure remains stable. Continue per consultants. March 12: Patient on TPN. Labs reviewed. CPK remains elevated. Abnormal electrolytes and high blood sugar discussed with pharmacist and TPN adjusted. Continue to monitor labs. Oral Protonix added. Ibuprofen discontinued. Can continue to monitor electrolytes and chemistries. Levemir for high blood sugar added. March 11: Patient on TPN. Labs as of 11:15 AM is still pending. Continue per current treatment plan. Will check labs and adjust TPN as needed. Continue per consultants. March 10: Patient on TPN. Labs reviewed. Electrolytes overall stable. CPK is elevated. Will monitor electrolyte, CPK level, lipid panel. Continue per consultants. Discussed with pharmacist. Discussed with RN. Nutritional evaluation noted. Previously: D5W 100 cc an hour Monitor electrolytes renal parameters TPN and Intralipid ordered Will follow Continue per consultants Dietary consult requested Subjective ROS Limited/Unobtainable: Yes Objective Objective Last 24 Hour Vital Signs Date Time Temp Pulse Resp B/P (MAP) Pulse Ox O2 Delivery O2 Flow Rate FiO2 04/22/20 11:00 60 18 104/55 (71) 93 04/22/20 10:00 60 18 116/61 (79) 95 04/22/20 09:47 18 109/54 Mechanical Ventilator 90 04/22/20 09:00 57 18 108/56 (73) 94 04/22/20 08:00 Mechanical Ventilator 04/22/20 08:00 97.8 56 18 103/56 (72) 93 04/22/20 08:00 90 04/22/20 07:46 57 04/22/20 07:27 58 18 90 04/22/20 07:00 61 18 110/59 (76) 93 04/22/20 07:00 18 110/59 Mechanical Ventilator 90 04/22/20 07:00 18 110/59 Mechanical Ventilator 90 04/22/20 06:15 73 18 157/66 (96) 93 04/22/20 06:00 20 172/84 Mechanical Ventilator 90 04/22/20 06:00 20 172/84 Mechanical Ventilator 90 04/22/20 06:00 88 20 172/84 (113) 93 04/22/20 05:20 18 137/73 Mechanical Ventilator 90 04/22/20 05:00 15 156/78 Mechanical Ventilator 90 04/22/20 05:00 15 156/78 Mechanical Ventilator 90 04/22/20 05:00 98.1 76 15 156/78 (104) 96 04/22/20 04:00 70 04/22/20 04:00 90 04/22/20 04:00 18 146/67 Mechanical Ventilator 90 04/22/20 04:00 18 146/67 Mechanical Ventilator 90 04/22/20 04:00 Mechanical Ventilator 04/22/20 04:00 70 18 146/67 (93) 98 04/22/20 03:33 57 18 90 04/22/20 03:29 18 116/58 Mechanical Ventilator 90 04/22/20 03:00 61 18 111/54 (73) 96 04/22/20 02:00 18 108/59 Mechanical Ventilator 90 04/22/20 02:00 18 108/59 Mechanical Ventilator 50 04/22/20 02:00 57 18 108/59 (75) 97 04/22/20 01:00 18 112/59 Endotracheal Tube 90 04/22/20 01:00 18 112/59 Mechanical Ventilator 90 04/22/20 01:00 63 18 112/59 (76) 96 04/22/20 00:00 Mechanical Ventilator 04/22/20 00:00 90 04/22/20 00:00 23 150/67 Mechanical Ventilator 90 04/22/20 00:00 23 150/67 Mechanical Ventilator 90 04/22/20 00:00 75 04/22/20 00:00 98.0 75 23 150/67 (94) 95 04/21/20 23:27 81 18 90 04/21/20 23:00 16 148/73 Mechanical Ventilator 90 04/21/20 23:00 16 148/73 Mechanical Ventilator 90 04/21/20 23:00 76 16 148/73 (98) 95 04/21/20 22:31 18 170/92 Mechanical Ventilator 90 04/21/20 22:00 17 148/74 Mechanical Ventilator 90 04/21/20 22:00 17 148/74 Mechanical Ventilator 90 04/21/20 22:00 69 17 148/74 (98) 98 04/21/20 21:06 18 107/60 Mechanical Ventilator 90 04/21/20 21:00 58 18 107/60 (76) 98 04/21/20 21:00 18 107/60 Mechanical Ventilator 90 04/21/20 21:00 18 107/60 Mechanical Ventilator 90 04/21/20 20:00 Mechanical Ventilator 04/21/20 20:00 18 111/62 Mechanical Ventilator 90 04/21/20 20:00 18 111/62 Mechanical Ventilator 90 04/21/20 20:00 90 04/21/20 20:00 98.1 60 18 111/62 (78) 97 04/21/20 19:54 59 04/21/20 19:32 58 18 90 04/21/20 19:00 18 104/60 Mechanical Ventilator 90 04/21/20 19:00 18 104/60 Mechanical Ventilator 90 04/21/20 19:00 66 18 104/60 (75) 97 04/21/20 18:00 18 122/59 Mechanical Ventilator 90 04/21/20 18:00 18 122/59 Mechanical Ventilator 90 04/21/20 18:00 72 25 122/59 (80) 96 04/21/20 17:30 19 152/82 Mechanical Ventilator 90 04/21/20 17:00 86 19 147/79 (101) 94 04/21/20 17:00 18 147/79 Mechanical Ventilator 90 04/21/20 17:00 18 147/79 Mechanical Ventilator 90 04/21/20 16:00 98.4 76 17 156/73 (100) 95 04/21/20 16:00 Mechanical Ventilator 04/21/20 16:00 76 04/21/20 16:00 90 04/21/20 16:00 18 156/73 Mechanical Ventilator 90 04/21/20 16:00 18 156/73 Mechanical Ventilator 90 04/21/20 15:30 79 20 161/89 (113) 95 04/21/20 15:27 76 18 90 04/21/20 15:00 82 20 147/80 (102) 95 04/21/20 15:00 20 147/80 Mechanical Ventilator 90 04/21/20 15:00 20 147/80 Mechanical Ventilator 90 04/21/20 14:00 20 164/71 Mechanical Ventilator 90 04/21/20 14:00 20 164/71 Mechanical Ventilator 90 04/21/20 14:00 79 13 164/71 (102) 95 04/21/20 13:00 81 20 143/73 (96) 91 04/21/20 13:00 20 129/65 Mechanical Ventilator 90 04/21/20 13:00 20 129/65 Mechanical Ventilator 90 04/21/20 12:40 22 154/69 Mechanical Ventilator 90 04/21/20 12:30 22 151/73 Mechanical Ventilator 90 04/21/20 12:00 Mechanical Ventilator 04/21/20 12:00 90 04/21/20 12:00 19 132/67 Mechanical Ventilator 90 04/21/20 12:00 19 132/67 Mechanical Ventilator 90 04/21/20 12:00 76 04/21/20 12:00 98.9 76 21 132/67 (88) 88 Intake and Output 04/21/20 04/22/20 19:00 07:00 Intake Total 1657.83 ml 1600.0 ml Output Total 920 ml 670 ml Balance 737.83 ml 930.0 ml IV Total 947.83 ml 950.0 ml Tube Feeding 550 ml 600 ml Other 160 ml 50 ml Output Urine Total 920 ml 650 ml Stool Total 0 ml 20 ml Current Medications Medications (Trade) Dose Ordered Sig/Dennis Route PRN Reason Start Time Stop Time Status Last Admin Dose Admin Acetaminophen (Tylenol) 650 mg Q4H PRN ORAL Temp >100.5 04/13/20 00:30 05/13/20 00:29 04/13/20 01:30 Bisacodyl (Dulcolax) 10 mg Q12H PRN RECTAL Constipation 03/18/20 16:45 06/16/20 16:44 Chlorhexidine Gluconate (Marlen-Hex 2%) 1 applic DAILY@2000 TOPIC 03/30/20 20:00 06/28/20 19:59 04/21/20 19:36 Dextrose (Dextrose 50%) 25 ml Q30M PRN IV Hypoglycemia 03/29/20 20:45 06/27/20 20:44 Dextrose (Dextrose 50%) 50 ml Q30M PRN IV Hypoglycemia 03/29/20 20:45 06/27/20 20:44 Enoxaparin Sodium (Lovenox) 80 mg EVERY 12 HOURS SUBQ 04/06/20 21:00 07/05/20 20:59 04/22/20 09:45 Fentanyl Citrate 250 ml @ 1 mls/hr Q24H IV 04/21/20 13:00 04/23/20 12:59 04/22/20 05:20 Hydralazine HCl (Apresoline) 10 mg Q4H PRN IV For High Blood Pressure 03/30/20 12:15 06/28/20 12:14 04/21/20 05:20 Insulin Aspart (NovoLOG) Q6HR SUBQ 03/30/20 00:00 06/28/20 00:00 04/20/20 23:34 Labetalol HCl (Normodyne) 10 mg Q4H PRN IV sbp greater tahtn 160 03/28/20 17:30 04/27/20 17:29 04/21/20 06:02 Lansoprazole (Prevacid) 15 mg Q12HR GT 04/20/20 21:00 05/20/20 20:59 04/22/20 09:44 Methylprednisolone Sodium Succinate (Solu-MEDROL) 20 mg Q12HR IVP 04/12/20 21:00 06/20/20 20:59 04/22/20 09:44 Metoclopramide HCl (Reglan) 10 mg Q6H IVP 03/30/20 15:00 04/29/20 14:59 04/22/20 09:44 Midazolam HCl 200 ml @ 0 mls/hr Q24H PRN IV Agitation 04/17/20 22:30 04/24/20 22:29 04/22/20 09:47 Morphine Sulfate (Morphine Sulfate) 4 mg Q6H PRN IVP agitation despite sedating med 04/21/20 12:45 04/28/20 12:44 04/22/20 04:28 Trimethoprim/ Sulfamethoxazole (Bactrim-DS) 1 tab Q24H ORAL 03/29/20 17:00 05/10/20 16:59 04/21/20 16:45 Laboratory Tests 04/22/20 05:27: White Blood Count 4.6L, Red Blood Count 3.04L, Hemoglobin 8.7L, Hematocrit 27.7L , Mean Corpuscular Volume 91, Mean Corpuscular Hemoglobin 28.7, Mean Corpuscular Hemoglobin Concent 31.4L, Red Cell Distribution Width 17.6H, Platelet Count 276, Mean Platelet Volume 6.3L, Neutrophils (%) (Auto) 81.1H, Lymphocytes (%) (Auto) 12.9L, Monocytes (%) (Auto) 5.1, Eosinophils (%) (Auto) 0.3, Basophils (%) (Auto) 0.5, Sodium Level 142, Potassium Level 4.6, Chloride Level 105, Carbon Dioxide Level 33H, Anion Gap 4L, Blood Urea Nitrogen 15, Creatinine 0.4L, Estimat Glomerular Filtration Rate > 60, Glucose Level 117H, Uric Acid 1.3L, Calcium Level 8.3L, Phosphorus Level 8.8H, Magnesium Level 2.3, Total Bilirubin 0.4, Aspartate Amino Transf (AST/SGOT) 16, Alanine Aminotransferase (ALT/SGPT) 58, Alkaline Phosphatase 165H, C-Reactive Protein, Quantitative 2.2H, Pro-B-Type Natriuretic Peptide 835H, Total Protein 5.1L, Albumin 2.1L, Globulin 3.0, Albumin/Globulin Ratio 0.7L Height (Feet): 5 Height (Inches): 10.00 Weight (Pounds): 240 General Appearance: no apparent distress EENT: other - Intubated on ventilator Cardiovascular: normal rate Respiratory/Chest: decreased breath sounds Abdomen: distended Rubin Cooper MD Apr 22, 2020 11:37
--- NOTE | 2020-04-22 11:44 | Pulmonology Progress Note ---
Subjective ROS Limited/Unobtainable: Yes Interval Events: Intubated 03/28/20 Constitutional: Reports: other - on vent ; Denies: fever HEENT: Repors: no symptoms Respiratory: Reports: dry cough, shortness of breath Cardiovascular: Reports: no symptoms Gastrointestinal/Abdominal: Denies: nausea, vomiting Psychiatric: Reports: other - NA Skin: Denies: rash Musculoskeletal: Reports: other - NA Allergies: Coded Allergies: No Known Allergies (Unverified , 02/05/20) Objective Last 24 Hour Vital Signs Date Time Temp Pulse Resp B/P (MAP) Pulse Ox O2 Delivery O2 Flow Rate FiO2 04/22/20 11:00 60 18 104/55 (71) 93 04/22/20 10:00 60 18 116/61 (79) 95 04/22/20 09:47 18 109/54 Mechanical Ventilator 90 04/22/20 09:00 57 18 108/56 (73) 94 04/22/20 08:00 Mechanical Ventilator 04/22/20 08:00 97.8 56 18 103/56 (72) 93 04/22/20 08:00 90 04/22/20 07:46 57 04/22/20 07:27 58 18 90 04/22/20 07:00 61 18 110/59 (76) 93 04/22/20 07:00 18 110/59 Mechanical Ventilator 90 04/22/20 07:00 18 110/59 Mechanical Ventilator 90 04/22/20 06:15 73 18 157/66 (96) 93 04/22/20 06:00 20 172/84 Mechanical Ventilator 90 04/22/20 06:00 20 172/84 Mechanical Ventilator 90 04/22/20 06:00 88 20 172/84 (113) 93 04/22/20 05:20 18 137/73 Mechanical Ventilator 90 04/22/20 05:00 15 156/78 Mechanical Ventilator 90 04/22/20 05:00 15 156/78 Mechanical Ventilator 90 04/22/20 05:00 98.1 76 15 156/78 (104) 96 04/22/20 04:00 70 04/22/20 04:00 90 04/22/20 04:00 18 146/67 Mechanical Ventilator 90 04/22/20 04:00 18 146/67 Mechanical Ventilator 90 04/22/20 04:00 Mechanical Ventilator 04/22/20 04:00 70 18 146/67 (93) 98 04/22/20 03:33 57 18 90 04/22/20 03:29 18 116/58 Mechanical Ventilator 90 04/22/20 03:00 61 18 111/54 (73) 96 04/22/20 02:00 18 108/59 Mechanical Ventilator 90 04/22/20 02:00 18 108/59 Mechanical Ventilator 50 04/22/20 02:00 57 18 108/59 (75) 97 04/22/20 01:00 18 112/59 Endotracheal Tube 90 04/22/20 01:00 18 112/59 Mechanical Ventilator 90 04/22/20 01:00 63 18 112/59 (76) 96 04/22/20 00:00 Mechanical Ventilator 04/22/20 00:00 90 04/22/20 00:00 23 150/67 Mechanical Ventilator 90 04/22/20 00:00 23 150/67 Mechanical Ventilator 90 04/22/20 00:00 75 04/22/20 00:00 98.0 75 23 150/67 (94) 95 04/21/20 23:27 81 18 90 04/21/20 23:00 16 148/73 Mechanical Ventilator 90 04/21/20 23:00 16 148/73 Mechanical Ventilator 90 04/21/20 23:00 76 16 148/73 (98) 95 04/21/20 22:31 18 170/92 Mechanical Ventilator 90 04/21/20 22:00 17 148/74 Mechanical Ventilator 90 04/21/20 22:00 17 148/74 Mechanical Ventilator 90 04/21/20 22:00 69 17 148/74 (98) 98 04/21/20 21:06 18 107/60 Mechanical Ventilator 90 04/21/20 21:00 58 18 107/60 (76) 98 04/21/20 21:00 18 107/60 Mechanical Ventilator 90 04/21/20 21:00 18 107/60 Mechanical Ventilator 90 04/21/20 20:00 Mechanical Ventilator 04/21/20 20:00 18 111/62 Mechanical Ventilator 90 04/21/20 20:00 18 111/62 Mechanical Ventilator 90 04/21/20 20:00 90 04/21/20 20:00 98.1 60 18 111/62 (78) 97 04/21/20 19:54 59 04/21/20 19:32 58 18 90 04/21/20 19:00 18 104/60 Mechanical Ventilator 90 04/21/20 19:00 18 104/60 Mechanical Ventilator 90 04/21/20 19:00 66 18 104/60 (75) 97 04/21/20 18:00 18 122/59 Mechanical Ventilator 90 04/21/20 18:00 18 122/59 Mechanical Ventilator 90 04/21/20 18:00 72 25 122/59 (80) 96 04/21/20 17:30 19 152/82 Mechanical Ventilator 90 04/21/20 17:00 86 19 147/79 (101) 94 04/21/20 17:00 18 147/79 Mechanical Ventilator 90 04/21/20 17:00 18 147/79 Mechanical Ventilator 90 04/21/20 16:00 98.4 76 17 156/73 (100) 95 04/21/20 16:00 Mechanical Ventilator 04/21/20 16:00 76 04/21/20 16:00 90 04/21/20 16:00 18 156/73 Mechanical Ventilator 90 04/21/20 16:00 18 156/73 Mechanical Ventilator 90 04/21/20 15:30 79 20 161/89 (113) 95 04/21/20 15:27 76 18 90 04/21/20 15:00 82 20 147/80 (102) 95 04/21/20 15:00 20 147/80 Mechanical Ventilator 90 04/21/20 15:00 20 147/80 Mechanical Ventilator 90 04/21/20 14:00 20 164/71 Mechanical Ventilator 90 04/21/20 14:00 20 164/71 Mechanical Ventilator 90 04/21/20 14:00 79 13 164/71 (102) 95 04/21/20 13:00 81 20 143/73 (96) 91 04/21/20 13:00 20 129/65 Mechanical Ventilator 90 04/21/20 13:00 20 129/65 Mechanical Ventilator 90 04/21/20 12:40 22 154/69 Mechanical Ventilator 90 04/21/20 12:30 22 151/73 Mechanical Ventilator 90 04/21/20 12:00 Mechanical Ventilator 04/21/20 12:00 90 04/21/20 12:00 19 132/67 Mechanical Ventilator 90 04/21/20 12:00 19 132/67 Mechanical Ventilator 90 04/21/20 12:00 76 04/21/20 12:00 98.9 76 21 132/67 (88) 88 Intake and Output 04/21/20 04/22/20 19:00 07:00 Intake Total 1657.83 ml 1600.0 ml Output Total 920 ml 670 ml Balance 737.83 ml 930.0 ml IV Total 947.83 ml 950.0 ml Tube Feeding 550 ml 600 ml Other 160 ml 50 ml Output Urine Total 920 ml 650 ml Stool Total 0 ml 20 ml General Appearance: WD/WN, no acute distress HEENT: normocephalic, atraumatic Respiratory: chest wall non-tender Cardiovascular: normal rate, regular rhythm Abdomen: normal bowel sounds, soft, non tender, other - obese Laboratory Tests 04/22/20 05:27: White Blood Count 4.6L, Red Blood Count 3.04L, Hemoglobin 8.7L, Hematocrit 27.7L , Mean Corpuscular Volume 91, Mean Corpuscular Hemoglobin 28.7, Mean Corpuscular Hemoglobin Concent 31.4L, Red Cell Distribution Width 17.6H, Platelet Count 276, Mean Platelet Volume 6.3L, Neutrophils (%) (Auto) 81.1H, Lymphocytes (%) (Auto) 12.9L, Monocytes (%) (Auto) 5.1, Eosinophils (%) (Auto) 0.3, Basophils (%) (Auto) 0.5, Sodium Level 142, Potassium Level 4.6, Chloride Level 105, Carbon Dioxide Level 33H, Anion Gap 4L, Blood Urea Nitrogen 15, Creatinine 0.4L, Estimat Glomerular Filtration Rate > 60, Glucose Level 117H, Uric Acid 1.3L, Calcium Level 8.3L, Phosphorus Level 8.8H, Magnesium Level 2.3, Total Bilirubin 0.4, Aspartate Amino Transf (AST/SGOT) 16, Alanine Aminotransferase (ALT/SGPT) 58, Alkaline Phosphatase 165H, C-Reactive Protein, Quantitative 2.2H, Pro-B-Type Natriuretic Peptide 835H, Total Protein 5.1L, Albumin 2.1L, Globulin 3.0, Albumin/Globulin Ratio 0.7L Current Medications Medications (Trade) Dose Ordered Sig/Dennis Route PRN Reason Start Time Stop Time Status Last Admin Dose Admin Acetaminophen (Tylenol) 650 mg Q4H PRN ORAL Temp >100.5 04/13/20 00:30 05/13/20 00:29 04/13/20 01:30 Bisacodyl (Dulcolax) 10 mg Q12H PRN RECTAL Constipation 03/18/20 16:45 06/16/20 16:44 Chlorhexidine Gluconate (Marlen-Hex 2%) 1 applic DAILY@2000 TOPIC 03/30/20 20:00 06/28/20 19:59 04/21/20 19:36 Dextrose (Dextrose 50%) 25 ml Q30M PRN IV Hypoglycemia 03/29/20 20:45 06/27/20 20:44 Dextrose (Dextrose 50%) 50 ml Q30M PRN IV Hypoglycemia 03/29/20 20:45 06/27/20 20:44 Enoxaparin Sodium (Lovenox) 80 mg EVERY 12 HOURS SUBQ 04/06/20 21:00 07/05/20 20:59 04/22/20 09:45 Fentanyl Citrate 250 ml @ 1 mls/hr Q24H IV 04/21/20 13:00 04/23/20 12:59 04/22/20 05:20 Hydralazine HCl (Apresoline) 10 mg Q4H PRN IV For High Blood Pressure 03/30/20 12:15 06/28/20 12:14 04/21/20 05:20 Insulin Aspart (NovoLOG) Q6HR SUBQ 03/30/20 00:00 06/28/20 00:00 04/20/20 23:34 Labetalol HCl (Normodyne) 10 mg Q4H PRN IV sbp greater tahtn 160 03/28/20 17:30 04/27/20 17:29 04/21/20 06:02 Lansoprazole (Prevacid) 15 mg Q12HR GT 04/20/20 21:00 05/20/20 20:59 04/22/20 09:44 Methylprednisolone Sodium Succinate (Solu-MEDROL) 20 mg Q12HR IVP 04/12/20 21:00 06/20/20 20:59 04/22/20 09:44 Metoclopramide HCl (Reglan) 10 mg Q6H IVP 03/30/20 15:00 04/29/20 14:59 04/22/20 09:44 Midazolam HCl 200 ml @ 0 mls/hr Q24H PRN IV Agitation 04/17/20 22:30 04/24/20 22:29 04/22/20 09:47 Morphine Sulfate (Morphine Sulfate) 4 mg Q6H PRN IVP agitation despite sedating med 04/21/20 12:45 04/28/20 12:44 04/22/20 04:28 Trimethoprim/ Sulfamethoxazole (Bactrim-DS) 1 tab Q24H ORAL 03/29/20 17:00 05/10/20 16:59 04/21/20 16:45 Assessment/Plan Assessment/Plan Assessment/Plan 1.COVID-19 pneumonia. - Completed specific therapies - On solumedrol 2. DVT ppx - on lovenox 3. Hypertension - no longer on meds - Not requiring pressors 4. Leukocytosis; - ID following - On abx - Budding yeast on blood CS 5. Elevated LFT - positive Hep C; treated in the past with IF 6. Respiratory failure -Intubated 03/28/20 -Family aware - Prognosis guarded - Vt 750; rate 18 -On sedation; added Morphine to Versed/fentanyl 7. Discussed with cardiology -No evidence for cardiac dysfunction or PE -tachycardic; will increase sedation 8. AMS -back on sedation - has apparent left arm paresis - Will consider CT brain when more stable S/p new PICC line Noted left upper extremity swelling. Has DVT; on full dose Lovenox Continue sedation, DC propofol given high triglycerides. Continue fentanyl and Versed. Saturations plummeted 04/20/20 when patient became agitated Now fully sedated on 80->100 ->90% FiO2 ; PEEP 5 Intubated now for 2-3 weeks Discussed tracheostomy with surgery Will wean down FiO2 as tolerated CXR shows bilateral interstitial changes? fibrosis? John Mata MD Apr 22, 2020 11:43
--- NOTE | 2020-04-22 12:28 | NUR ---
NURSE NOTES: Pt's BG checked, 129, no insulin coverage needed per sliding scale. Pt's VSS, no signs of distress noted. Will continue to monitor.
--- NOTE | 2020-04-22 12:46 | Cardiology Progress Note ---
Assessment/Plan Assessment/Plan Acute covid 19 pneumonia hypoxemia infiltrate bilat bacteremia hypernatremia / hyponatremia mild abn lfts tachy post intubation fever fungemia dvt upper ext now on 100 % fio2 , 2-[address] fry discussing trach but pt oxygen requirement are too high still full sedated with fentanyl and versed not febrile now hypoxemia unlikely cardiac related tube feeding being tolerated echo reviewed last on 04/06 still shows normal lv function no valve pathology cxr still showing bilateral lower lobe infiltrates as of04/18 tele reviewed sinus remains critical now is on full dose anticoag due to dvt ue s/p diuresis of about 7 liter over 48 hour dcd 04/17 cr is stable d/w rn try slwo weaning ? will give lasix agian cxr noted hsi abg show good oxygen level from 04/21 covid pcr negative , however considering that it took 3 tests to finally initially identify his covid infection i am not sure if we can trust Subjective ROS Limited/Unobtainable: Yes Subjective not communicative dionisio vent Objective Last 24 Hour Vital Signs Date Time Temp Pulse Resp B/P (MAP) Pulse Ox O2 Delivery O2 Flow Rate FiO2 04/22/20 12:00 97.5 61 18 111/56 (74) 93 04/22/20 12:00 90 04/22/20 12:00 59 04/22/20 12:00 Mechanical Ventilator 04/22/20 11:39 62 04/22/20 11:00 60 18 104/55 (71) 93 04/22/20 10:00 60 18 116/61 (79) 95 04/22/20 09:47 18 109/54 Mechanical Ventilator 90 04/22/20 09:00 57 18 108/56 (73) 94 04/22/20 08:00 Mechanical Ventilator 04/22/20 08:00 97.8 56 18 103/56 (72) 93 04/22/20 08:00 90 04/22/20 07:46 57 04/22/20 07:27 58 18 90 04/22/20 07:00 61 18 110/59 (76) 93 04/22/20 07:00 18 110/59 Mechanical Ventilator 90 04/22/20 07:00 18 110/59 Mechanical Ventilator 90 04/22/20 06:15 73 18 157/66 (96) 93 04/22/20 06:00 20 172/84 Mechanical Ventilator 90 04/22/20 06:00 20 172/84 Mechanical Ventilator 90 04/22/20 06:00 88 20 172/84 (113) 93 04/22/20 05:20 18 137/73 Mechanical Ventilator 90 04/22/20 05:00 15 156/78 Mechanical Ventilator 90 04/22/20 05:00 15 156/78 Mechanical Ventilator 90 04/22/20 05:00 98.1 76 15 156/78 (104) 96 04/22/20 04:00 70 04/22/20 04:00 90 04/22/20 04:00 18 146/67 Mechanical Ventilator 90 04/22/20 04:00 18 146/67 Mechanical Ventilator 90 04/22/20 04:00 Mechanical Ventilator 04/22/20 04:00 70 18 146/67 (93) 98 04/22/20 03:33 57 18 90 04/22/20 03:29 18 116/58 Mechanical Ventilator 90 04/22/20 03:00 61 18 111/54 (73) 96 04/22/20 02:00 18 108/59 Mechanical Ventilator 90 04/22/20 02:00 18 108/59 Mechanical Ventilator 50 04/22/20 02:00 57 18 108/59 (75) 97 04/22/20 01:00 18 112/59 Endotracheal Tube 90 04/22/20 01:00 18 112/59 Mechanical Ventilator 90 04/22/20 01:00 63 18 112/59 (76) 96 04/22/20 00:00 Mechanical Ventilator 04/22/20 00:00 90 04/22/20 00:00 23 150/67 Mechanical Ventilator 90 04/22/20 00:00 23 150/67 Mechanical Ventilator 90 04/22/20 00:00 75 04/22/20 00:00 98.0 75 23 150/67 (94) 95 04/21/20 23:27 81 18 90 04/21/20 23:00 16 148/73 Mechanical Ventilator 90 04/21/20 23:00 16 148/73 Mechanical Ventilator 90 04/21/20 23:00 76 16 148/73 (98) 95 04/21/20 22:31 18 170/92 Mechanical Ventilator 90 04/21/20 22:00 17 148/74 Mechanical Ventilator 90 04/21/20 22:00 17 148/74 Mechanical Ventilator 90 04/21/20 22:00 69 17 148/74 (98) 98 04/21/20 21:06 18 107/60 Mechanical Ventilator 90 04/21/20 21:00 58 18 107/60 (76) 98 04/21/20 21:00 18 107/60 Mechanical Ventilator 90 04/21/20 21:00 18 107/60 Mechanical Ventilator 90 04/21/20 20:00 Mechanical Ventilator 04/21/20 20:00 18 111/62 Mechanical Ventilator 90 04/21/20 20:00 18 111/62 Mechanical Ventilator 90 04/21/20 20:00 90 04/21/20 20:00 98.1 60 18 111/62 (78) 97 04/21/20 19:54 59 04/21/20 19:32 58 18 90 04/21/20 19:00 18 104/60 Mechanical Ventilator 90 04/21/20 19:00 18 104/60 Mechanical Ventilator 90 04/21/20 19:00 66 18 104/60 (75) 97 04/21/20 18:00 18 122/59 Mechanical Ventilator 90 04/21/20 18:00 18 122/59 Mechanical Ventilator 90 04/21/20 18:00 72 25 122/59 (80) 96 04/21/20 17:30 19 152/82 Mechanical Ventilator 90 04/21/20 17:00 86 19 147/79 (101) 94 04/21/20 17:00 18 147/79 Mechanical Ventilator 90 04/21/20 17:00 18 147/79 Mechanical Ventilator 90 04/21/20 16:00 98.4 76 17 156/73 (100) 95 04/21/20 16:00 Mechanical Ventilator 04/21/20 16:00 76 04/21/20 16:00 90 04/21/20 16:00 18 156/73 Mechanical Ventilator 90 04/21/20 16:00 18 156/73 Mechanical Ventilator 90 04/21/20 15:30 79 20 161/89 (113) 95 04/21/20 15:27 76 18 90 04/21/20 15:00 82 20 147/80 (102) 95 04/21/20 15:00 20 147/80 Mechanical Ventilator 90 04/21/20 15:00 20 147/80 Mechanical Ventilator 90 04/21/20 14:00 20 164/71 Mechanical Ventilator 90 04/21/20 14:00 20 164/71 Mechanical Ventilator 90 04/21/20 14:00 79 13 164/71 (102) 95 04/21/20 13:00 81 20 143/73 (96) 91 04/21/20 13:00 20 129/65 Mechanical Ventilator 90 04/21/20 13:00 20 129/65 Mechanical Ventilator 90 General Appearance: no apparent distress, alert, on vent, patient on isolation Cardiovascular: normal rate Respiratory/Chest: lungs clear Abdomen: normal bowel sounds, non tender, soft Extremities: trace edema - right leg distal tothe bp cuff on that leg Intake and Output 04/21/20 04/22/20 19:00 07:00 Intake Total 1657.83 ml 1600.0 ml Output Total 920 ml 670 ml Balance 737.83 ml 930.0 ml IV Total 947.83 ml 950.0 ml Tube Feeding 550 ml 600 ml Other 160 ml 50 ml Output Urine Total 920 ml 650 ml Stool Total 0 ml 20 ml Laboratory Tests Test 04/22/20 05:27 White Blood Count 4.6 K/UL (4.8-10.8) L Red Blood Count 3.04 M/UL (4.70-6.10) L Hemoglobin 8.7 G/DL (14.2-18.0) L Hematocrit 27.7 % (42.0-52.0) L Mean Corpuscular Volume 91 FL (80-99) Mean Corpuscular Hemoglobin 28.7 PG (27.0-31.0) Mean Corpuscular Hemoglobin Concent 31.4 G/DL (32.0-36.0) L Red Cell Distribution Width 17.6 % (11.6-14.8) H Platelet Count 276 K/UL (150-450) Mean Platelet Volume 6.3 FL (6.5-10.1) L Neutrophils (%) (Auto) 81.1 % (45.0-75.0) H Lymphocytes (%) (Auto) 12.9 % (20.0-45.0) L Monocytes (%) (Auto) 5.1 % (1.0-10.0) Eosinophils (%) (Auto) 0.3 % (0.0-3.0) Basophils (%) (Auto) 0.5 % (0.0-2.0) Sodium Level 142 MMOL/L (136-145) Potassium Level 4.6 MMOL/L (3.5-5.1) Chloride Level 105 MMOL/L (98-107) Carbon Dioxide Level 33 MMOL/L (21-32) H Anion Gap 4 mmol/L (5-15) L Blood Urea Nitrogen 15 mg/dL (7-18) Creatinine 0.4 MG/DL (0.55-1.30) L Estimat Glomerular Filtration Rate > 60 mL/min (>60) Glucose Level 117 MG/DL (74-106) H Uric Acid 1.3 MG/DL (2.6-7.2) L Calcium Level 8.3 MG/DL (8.5-10.1) L Phosphorus Level 8.8 MG/DL (2.5-4.9) H Magnesium Level 2.3 MG/DL (1.8-2.4) Total Bilirubin 0.4 MG/DL (0.2-1.0) Aspartate Amino Transf (AST/SGOT) 16 U/L (15-37) Alanine Aminotransferase (ALT/SGPT) 58 U/L (12-78) Alkaline Phosphatase 165 U/L (46-116) H C-Reactive Protein, Quantitative 2.2 mg/dL (0.00-0.90) H Pro-B-Type Natriuretic Peptide 835 pg/mL (0-125) H Total Protein 5.1 G/DL (6.4-8.2) L Albumin 2.1 G/DL (3.4-5.0) L Globulin 3.0 g/dL Albumin/Globulin Ratio 0.7 (1.0-2.7) L Objective pt seen persoanlly Manan Awan MD Apr 22, 2020 12:46
--- NOTE | 2020-04-22 13:15 | NUR ---
NURSE NOTES: MD Awan at the bedside to assess pt. Made MD aware of pt's HR in the 50s. Per MD Awan, MD Mata agreed to start titrating pt's FiO2 down by 5% Q8H. Will put in order, RT notified. Will continue to monitor pt.
--- NOTE | 2020-04-22 15:29 | NUR ---
NURSE NOTES: Pt's significant other at bedside to visit pt. Pt's VSS, no signs of distress noted. Safety precautions maintained. Will continue to monitor.
--- NOTE | 2020-04-22 17:45 | NUR ---
NURSE NOTES: Pt's VSS, no signs of distress noted. Pt given oral care, bed linens and gown changed. Optifoam on sacral area changed. Tube feeding changed, 50mL residual noted. Safety precautions maintained. Will continue to monitor.
--- NOTE | 2020-04-22 19:15 | NUR ---
NURSE HAND-OFF REPORT: Latest Vital Signs: Temperature 97.9 , Pulse 92 , B/P 182 /87 , Respiratory Rate 19 , O2 SAT 99 , Mechanical Ventilator, 85% FiO2. Vital Sign Comment: EKG Rhythm: Sinus Rhythm Rhythm change?: N MD Notified?: MD Response: Latest Hassan Fall Score: 50 Fall Risk: High Risk Safety Measures: Call light Within Reach, Bed Alarm Zone 3, Side Rails Side Rails x3, Bed position Low and Locked. Fall Precautions: Yellow Socks Yellow Gown Door Sign Patient Fall Education Report given to PRIYANKA Mantilla for continuity of care. Pt stable. .
--- NOTE | 2020-04-22 19:28 | NUR ---
NURSE NOTES: PATIENT AWOKE, AGITATED, ON ETT TO VENT, AC 18/TV750/FIO2 85%/PEEP 5, O2 SATURATION 98% NOTED, OGT INTACT AND PATENT, ONGOING GLUCERNA 1.5 AT 50ML/HR, NO RESIDUE NOTED, KEPT HOB 30 DEGREES AND ASPIRATION PRECAUTION, ABDOMEN SOFT, NON TENDER, RECTAL TUBE INTACT AND PATENT, F/C INTACT AND PATENT, NAYELI COLOR URINE OUTED, PICC LINE TO RIGHT UPPER ARM, INTACT AND PATENT, ONGOING FENTANYL 300MCG/HR, VERSED 15MG/HR VIA PICC LINE, RASS SCORE -2 IS GOAL, 1 POINT SOFT RESTRAINT TO RIGHT WRIST STATUS, ON P200 BED, MADE LOWER BED POSITION, ON BED ALARM AND LOCKED, WILL CONTINUE TO MONITOR.
[2020-04-22] MEDS: Dyna-Hex 2% Top Sol 2oz TOPIC SCH (19:31)
--- NOTE | 2020-04-22 19:38 | NUR ---
NURSE NOTES: GIVEN MORPHINE 4MG BY IVP SLOWLY PRN ORDER FOR AGITATION, WILL CONTINUE TO MONITOR.
--- NOTE | 2020-04-22 21:40 | NUR ---
NURSE NOTES: PATIENT SEDATED, RASS SCORE -2 WITH FENTANYL 300MCG/HR AND VERSED 20MG/HR, NO SOB OR PAIN NOTED, WILL CONTINUE TO MONITOR.
[2020-04-23] VITALS (31 sets, daily range): BP systolic 104–182; BP diastolic 56–86
--- NOTE | 2020-04-23 00:05 | NUR ---
NURSE NOTES: VSS, NO ACUTE DISTRESS NOTED AT THIS TIME, WILL CONTINUE PLAN PF CARE.
--- NOTE | 2020-04-23 02:00 | NUR ---
NURSE NOTES: REPOSITIONED, ORAL CARE WAS DONE.
[2020-04-23] MEDS: Metoclopramide 10mg/2ml Inj IVP SCH ×4 (02:51→20:24)
--- NOTE | 2020-04-23 04:20 | NUR ---
NURSE NOTES: MORNING CARE WAS DONE,.
[2020-04-23] MEDS: Versed 100mg/NS 200ml 200 ML IV PRN ×3 (04:27→18:44)
[2020-04-23] MEDS: Morphine Sulfate 4mg/ml Inj IVP PRN (04:28)
--- NOTE | 2020-04-23 04:28 | NUR ---
NURSE NOTES: GIVEN MORPHINE 4MG BY IVP SLOWLY PRN ORDER FOR AGITATION, WILL CONTINUE TO MONITOR.
[2020-04-23] MEDS: NovoLOG Insulin Flexpen SUBQ SCH ×3 (05:31→17:54)
[2020-04-23] MEDS: fentaNYL 2500mcg/NS 250ml 250 ML IV SCH ×3 (05:33→22:30)
--- NOTE | 2020-04-23 06:33 | NUR ---
NURSE NOTES: PATIENT SEDATED, VSS, NO ACUTE DISTRESS NOTED AT THIS TIME.
--- NOTE | 2020-04-23 07:09 | NUR ---
NURSE HAND-OFF REPORT: Latest Vital Signs: Temperature 98.1 , Pulse 74 , B/P 158 /84 , Respiratory Rate 14 , O2 SAT 100 , Mechanical Ventilator, O2 Flow Rate . Vital Sign Comment: EKG Rhythm: Sinus Rhythm Rhythm change?: N Notified?: N -Dr.Toluie INTERIANO Response: Message left await call Latest Hassan Fall Score: 50 Fall Risk: High Risk Safety Measures: Call light Within Reach, Bed Alarm Zone 3, Side Rails Side Rails x3, Bed position Low and Locked. Fall Precautions: Yellow Socks Yellow Gown Door Sign Patient Fall Education Report given to PRIYANKA NICOLAS.
--- NOTE | 2020-04-23 07:10 | NUR ---
NURSE NOTES: Received bedside report from PRIYANKA Mantilla. Pt's VSS, no signs of distress noted. Pt sedated but opens eyes spontaneously, able to move right upper extremity. Pt SB on the quality assurance monitor chassis, HR between 50-60. Pt's respirations even and unlabored, ETT size 8 at 25 cm lip line with the following vent settings: A/C 18, T/V 750, 80% FiO2, Peep 5, O2 sat between 95-100%. Pt has Glucerna 1.5 running at 50mL/hr via OGT, 40mL of yellow residual noted. Pt has rectal tube, soft liquid brown stool noted. Pt has joseph catheter, draining well, dark yellow urine noted. Skin alterations noted in chart and covered with optifoam. Pt has ALBERT PICC, no signs of infection or complication noted from site, dressing clean dry and intact. Pt has Fentanyl drip running at 300mcg/hr and Versed at 20mg/hr. Pt has right hand restraints, no signs of injury noted from extremity. HOB at 30 degrees. Bed locked and in lowest position. Safety precautions maintained. Will continue to monitor.
--- NOTE | 2020-04-23 08:14 | Pulmonology Progress Note ---
Subjective ROS Limited/Unobtainable: Yes Interval Events: Intubated 03/28/20 Constitutional: Reports: other - on vent ; Denies: fever HEENT: Repors: no symptoms Respiratory: Reports: dry cough, shortness of breath Cardiovascular: Reports: no symptoms Gastrointestinal/Abdominal: Denies: nausea, vomiting Psychiatric: Reports: other - NA Skin: Denies: rash Musculoskeletal: Reports: other - NA Allergies: Coded Allergies: No Known Allergies (Unverified , 02/05/20) Objective Last 24 Hour Vital Signs Date Time Temp Pulse Resp B/P (MAP) Pulse Ox O2 Delivery O2 Flow Rate FiO2 04/23/20 07:54 56 18 80 04/23/20 07:00 18 113/56 Mechanical Ventilator 80 04/23/20 07:00 18 113/56 Mechanical Ventilator 80 04/23/20 07:00 60 18 113/56 (75) 100 04/23/20 06:00 14 158/84 Mechanical Ventilator 80 04/23/20 06:00 14 158/84 Mechanical Ventilator 80 04/23/20 06:00 74 14 158/84 (108) 100 04/23/20 05:33 18 133/69 Mechanical Ventilator 80 04/23/20 05:00 16 134/71 Mechanical Ventilator 80 04/23/20 05:00 16 134/71 Mechanical Ventilator 80 04/23/20 05:00 72 16 134/71 (92) 100 04/23/20 04:30 85 17 160/80 (106) 98 04/23/20 04:27 28 173/79 Mechanical Ventilator 80 04/23/20 04:00 98.1 94 20 182/70 (107) 99 04/23/20 04:00 94 04/23/20 04:00 20 182/70 Mechanical Ventilator 80 04/23/20 04:00 20 182/70 Mechanical Ventilator 80 04/23/20 04:00 Mechanical Ventilator 04/23/20 04:00 80 04/23/20 03:00 73 19 142/72 (95) 100 04/23/20 03:00 19 142/72 Mechanical Ventilator 80 04/23/20 03:00 19 142/72 Mechanical Ventilator 80 04/23/20 02:00 18 112/57 Mechanical Ventilator 80 04/23/20 02:00 18 134/74 Mechanical Ventilator 80 04/23/20 02:00 66 18 134/74 (94) 100 04/23/20 01:40 80 04/23/20 01:37 61 18 80 04/23/20 01:00 58 18 114/58 (76) 100 04/23/20 01:00 18 114/58 Mechanical Ventilator 80 04/23/20 01:00 18 114/58 Mechanical Ventilator 85 04/23/20 00:00 98.1 60 18 112/57 (75) 100 04/23/20 00:00 85 04/23/20 00:00 60 04/23/20 00:00 Mechanical Ventilator 04/23/20 00:00 18 112/57 Mechanical Ventilator 85 04/23/20 00:00 18 112/57 Mechanical Ventilator 85 04/22/20 23:14 18 117/61 Mechanical Ventilator 85 04/22/20 23:00 18 117/61 Mechanical Ventilator 85 04/22/20 23:00 18 117/61 Mechanical Ventilator 85 04/22/20 23:00 61 18 117/61 (79) 100 04/22/20 22:00 62 18 109/58 (75) 100 04/22/20 22:00 18 109/58 Mechanical Ventilator 85 04/22/20 22:00 18 109/58 Mechanical Ventilator 85 04/22/20 21:39 17 112/60 Mechanical Ventilator 85 04/22/20 21:00 69 18 118/59 (78) 100 04/22/20 21:00 18 118/59 Mechanical Ventilator 85 04/22/20 21:00 18 118/59 Mechanical Ventilator 85 04/22/20 20:30 18 124/60 Mechanical Ventilator 85 04/22/20 20:15 74 18 127/61 (83) 100 04/22/20 20:15 18 127/61 Mechanical Ventilator 85 04/22/20 20:00 98.1 79 17 133/62 (85) 100 04/22/20 20:00 Mechanical Ventilator 04/22/20 20:00 17 133/62 Mechanical Ventilator 85 04/22/20 20:00 17 133/62 Mechanical Ventilator 85 04/22/20 20:00 85 04/22/20 19:50 71 18 85 04/22/20 19:45 96 21 175/83 (113) 100 04/22/20 19:45 21 175/83 Mechanical Ventilator 85 04/22/20 19:43 94 21 193/89 (123) 100 04/22/20 19:36 90 04/22/20 19:30 17 209/99 Mechanical Ventilator 85 04/22/20 19:30 102 17 209/99 (135) 100 04/22/20 19:00 92 20 182/87 (118) 99 04/22/20 19:00 19 182/87 Mechanical Ventilator 85 04/22/20 19:00 19 182/87 Mechanical Ventilator 85 21 18:00 19 162/86 Mechanical Ventilator 85 04/22/20 18:00 19 162/84 Mechanical Ventilator 85 04/22/20 18:00 84 20 175/78 (110) 99 04/22/20 17:28 18 104/55 Mechanical Ventilator 85 04/22/20 17:00 79 18 104/55 (71) 94 04/22/20 17:00 18 104/55 Mechanical Ventilator 85 04/22/20 17:00 18 104/55 Mechanical Ventilator 85 04/22/20 16:00 97.9 95 26 146/73 (97) 93 04/22/20 16:00 85 04/22/20 16:00 18 146/73 Mechanical Ventilator 85 04/22/20 16:00 18 146/73 Mechanical Ventilator 85 04/22/20 16:00 Mechanical Ventilator 04/22/20 15:32 76 22 85 04/22/20 15:04 86 04/22/20 15:00 81 20 157/68 (97) 96 04/22/20 15:00 18 165/70 Mechanical Ventilator 85 04/22/20 15:00 18 165/70 Mechanical Ventilator 85 04/22/20 14:00 88 22 181/85 (117) 96 04/22/20 14:00 19 168/78 Mechanical Ventilator 90 04/22/20 14:00 24 174/85 Mechanical Ventilator 90 04/22/20 13:20 85 04/22/20 13:00 70 20 141/64 (89) 93 04/22/20 13:00 20 141/64 90 04/22/20 13:00 18 141/64 Mechanical Ventilator 90 04/22/20 13:00 85 04/22/20 12:00 97.5 61 18 111/56 (74) 93 04/22/20 12:00 18 104/54 Mechanical Ventilator 90 04/22/20 12:00 18 104/54 Mechanical Ventilator 90 04/22/20 12:00 90 04/22/20 12:00 59 2/20/21 12:00 Mechanical Ventilator 04/22/20 11:39 62 04/22/20 11:30 59 18 90 04/22/20 11:00 60 18 104/55 (71) 93 04/22/20 11:00 18 105/52 Mechanical Ventilator 90 04/22/20 11:00 18 105/52 Mechanical Ventilator 90 04/22/20 10:30 59 18 92 Mechanical Ventilator 90 04/22/20 10:00 60 18 116/61 (79) 95 04/22/20 10:00 18 116/51 Mechanical Ventilator 90 04/22/20 10:00 18 116/61 Mechanical Ventilator 90 04/22/20 09:47 18 109/54 Mechanical Ventilator 90 04/22/20 09:00 18 108/55 Mechanical Ventilator 90 04/22/20 09:00 18 108/55 Mechanical Ventilator 90 04/22/20 09:00 57 18 108/56 (73) 94 04/22/20 08:45 18 108/56 Mechanical Ventilator 90 04/22/20 08:30 18 106/57 Mechanical Ventilator 90 04/22/20 08:15 18 106/57 Mechanical Ventilator 90 Intake and Output 04/22/20 04/23/20 19:00 07:00 Intake Total 1388.5 ml 1480.0 ml Output Total 1730 ml 1620 ml Balance -341.5 ml -140.0 ml Free Water 60 ml IV Total 728.5 ml 830.0 ml Tube Feeding 600 ml 600 ml Other 50 ml Output Urine Total 1720 ml 1590 ml Stool Total 10 ml 30 ml General Appearance: WD/WN, no acute distress HEENT: normocephalic, atraumatic Respiratory: chest wall non-tender Cardiovascular: normal rate, regular rhythm Abdomen: normal bowel sounds, soft, non tender, other - obese Current Medications Medications (Trade) Dose Ordered Sig/Dennis Route PRN Reason Start Time Stop Time Status Last Admin Dose Admin Acetaminophen (Tylenol) 650 mg Q4H PRN ORAL Temp >100.5 04/13/20 00:30 05/13/20 00:29 04/13/20 01:30 Bisacodyl (Dulcolax) 10 mg Q12H PRN RECTAL Constipation 03/18/20 16:45 06/16/20 16:44 Chlorhexidine Gluconate (Marlen-Hex 2%) 1 applic DAILY@2000 TOPIC 03/30/20 20:00 06/28/20 19:59 04/22/20 19:31 Dextrose (Dextrose 50%) 25 ml Q30M PRN IV Hypoglycemia 03/29/20 20:45 06/27/20 20:44 Dextrose (Dextrose 50%) 50 ml Q30M PRN IV Hypoglycemia 03/29/20 20:45 06/27/20 20:44 Enoxaparin Sodium (Lovenox) 80 mg EVERY 12 HOURS SUBQ 04/06/20 21:00 07/05/20 20:59 04/22/20 20:31 Fentanyl Citrate 250 ml @ 1 mls/hr Q24H IV 04/23/20 13:00 04/25/20 12:59 Furosemide (Lasix) 20 mg DAILY IV 04/22/20 12:45 05/22/20 12:44 04/22/20 13:34 Hydralazine HCl (Apresoline) 10 mg Q4H PRN IV For High Blood Pressure 03/30/20 12:15 06/28/20 12:14 04/21/20 05:20 Insulin Aspart (NovoLOG) Q6HR SUBQ 03/30/20 00:00 06/28/20 00:00 04/20/20 23:34 Labetalol HCl (Normodyne) 10 mg Q4H PRN IV sbp greater tahtn 160 03/28/20 17:30 04/27/20 17:29 04/21/20 06:02 Lansoprazole (Prevacid) 15 mg Q12HR GT 04/20/20 21:00 05/20/20 20:59 04/22/20 20:31 Methylprednisolone Sodium Succinate (Solu-MEDROL) 20 mg Q12HR IVP 04/12/20 21:00 06/20/20 20:59 04/22/20 20:30 Metoclopramide HCl (Reglan) 10 mg Q6H IVP 03/30/20 15:00 04/29/20 14:59 04/23/20 02:51 Midazolam HCl 200 ml @ 0 mls/hr Q24H PRN IV Agitation 04/17/20 22:30 04/24/20 22:29 04/23/20 04:27 Morphine Sulfate (Morphine Sulfate) 4 mg Q6H PRN IVP agitation despite sedating med 04/21/20 12:45 04/28/20 12:44 04/23/20 04:28 Assessment/Plan Assessment/Plan Assessment/Plan 1.COVID-19 pneumonia. - Completed specific therapies - On solumedrol 2. DVT ppx - on lovenox 3. Hypertension - no longer on meds - Not requiring pressors 4. Leukocytosis; - ID following - On abx - Budding yeast on blood CS 5. Elevated LFT - positive Hep C; treated in the past with IF 6. Respiratory failure -Intubated 03/28/20 -Family aware - Prognosis guarded - Vt 750; rate 18 -On sedation; added Morphine to Versed/fentanyl 7. Discussed with cardiology -No evidence for cardiac dysfunction or PE -tachycardic; will increase sedation 8. AMS -back on sedation - has apparent left arm paresis - Will consider CT brain when more stable S/p new PICC line Noted left upper extremity swelling. Has DVT; on full dose Lovenox Continue sedation, DC propofol given high triglycerides. Continue fentanyl and Versed. Saturations plummeted 04/20/20 when patient became agitated Now fully sedated on 80->100 ->90 ->80% FiO2 ; PEEP 5 Intubated now for 2-3 weeks Discussed tracheostomy with surgery Will wean down FiO2 as tolerated CXR shows bilateral interstitial changes? fibrosis? John Mata MD Apr 23, 2020 08:13
--- NOTE | 2020-04-23 08:45 | General Progress Note ---
Subjective ROS Limited/Unobtainable: No Allergies: Coded Allergies: No Known Allergies (Unverified , 02/05/20) Objective Last 24 Hour Vital Signs Date Time Temp Pulse Resp B/P (MAP) Pulse Ox O2 Delivery O2 Flow Rate FiO2 04/23/20 07:54 56 18 80 04/23/20 07:00 18 113/56 Mechanical Ventilator 80 04/23/20 07:00 18 113/56 Mechanical Ventilator 80 04/23/20 07:00 60 18 113/56 (75) 100 04/23/20 06:00 14 158/84 Mechanical Ventilator 80 04/23/20 06:00 14 158/84 Mechanical Ventilator 80 04/23/20 06:00 74 14 158/84 (108) 100 04/23/20 05:33 18 133/69 Mechanical Ventilator 80 04/23/20 05:00 16 134/71 Mechanical Ventilator 80 04/23/20 05:00 16 134/71 Mechanical Ventilator 80 04/23/20 05:00 72 16 134/71 (92) 100 04/23/20 04:30 85 17 160/80 (106) 98 04/23/20 04:27 28 173/79 Mechanical Ventilator 80 04/23/20 04:00 98.1 94 20 182/70 (107) 99 04/23/20 04:00 94 04/23/20 04:00 20 182/70 Mechanical Ventilator 80 04/23/20 04:00 20 182/70 Mechanical Ventilator 80 04/23/20 04:00 Mechanical Ventilator 04/23/20 04:00 80 04/23/20 03:00 73 19 142/72 (95) 100 04/23/20 03:00 19 142/72 Mechanical Ventilator 80 04/23/20 03:00 19 142/72 Mechanical Ventilator 80 04/23/20 02:00 18 112/57 Mechanical Ventilator 80 04/23/20 02:00 18 134/74 Mechanical Ventilator 80 04/23/20 02:00 66 18 134/74 (94) 100 04/23/20 01:40 80 04/23/20 01:37 61 18 80 04/23/20 01:00 58 18 114/58 (76) 100 04/23/20 01:00 18 114/58 Mechanical Ventilator 80 04/23/20 01:00 18 114/58 Mechanical Ventilator 85 04/23/20 00:00 98.1 60 18 112/57 (75) 100 04/23/20 00:00 85 04/23/20 00:00 60 04/23/20 00:00 Mechanical Ventilator 04/23/20 00:00 18 112/57 Mechanical Ventilator 85 04/23/20 00:00 18 112/57 Mechanical Ventilator 85 04/22/20 23:14 18 117/61 Mechanical Ventilator 85 04/22/20 23:00 18 117/61 Mechanical Ventilator 85 04/22/20 23:00 18 117/61 Mechanical Ventilator 85 04/22/20 23:00 61 18 117/61 (79) 100 04/22/20 22:00 62 18 109/58 (75) 100 04/22/20 22:00 18 109/58 Mechanical Ventilator 85 04/22/20 22:00 18 109/58 Mechanical Ventilator 85 04/22/20 21:39 17 112/60 Mechanical Ventilator 85 04/22/20 21:00 69 18 118/59 (78) 100 04/22/20 21:00 18 118/59 Mechanical Ventilator 85 04/22/20 21:00 18 118/59 Mechanical Ventilator 85 04/22/20 20:30 18 124/60 Mechanical Ventilator 85 04/22/20 20:15 74 18 127/61 (83) 100 04/22/20 20:15 18 127/61 Mechanical Ventilator 85 04/22/20 20:00 98.1 79 17 133/62 (85) 100 04/22/20 20:00 Mechanical Ventilator 04/22/20 20:00 17 133/62 Mechanical Ventilator 85 04/22/20 20:00 17 133/62 Mechanical Ventilator 85 04/22/20 20:00 85 04/22/20 19:50 71 18 85 04/22/20 19:45 96 21 175/83 (113) 100 04/22/20 19:45 21 175/83 Mechanical Ventilator 85 04/22/20 19:43 94 21 193/89 (123) 100 04/22/20 19:36 90 04/22/20 19:30 17 209/99 Mechanical Ventilator 85 04/22/20 19:30 102 17 209/99 (135) 100 04/22/20 19:00 92 20 182/87 (118) 99 04/22/20 19:00 19 182/87 Mechanical Ventilator 85 04/22/20 19:00 19 182/87 Mechanical Ventilator 85 18:00 19 162/86 Mechanical Ventilator 85 04/22/21 18:00 19 162/84 Mechanical Ventilator 85 04/22/ 18:00 84 20 175/78 (110) 99 04/22/20 17:28 18 104/55 Mechanical Ventilator 85 2/21 17:00 79 18 104/55 (71) 94 04/22/21 17:00 18 104/55 Mechanical Ventilator 85 04/22/ 17:00 18 104/55 Mechanical Ventilator 85 04/22/ 16:00 97.9 95 26 146/73 (97) 93 04/22/20 16:00 85 04/22/ 16:00 18 146/73 Mechanical Ventilator 85 04/22/20 16:00 18 146/73 Mechanical Ventilator 85 04/22/20 16:00 Mechanical Ventilator 04/22/20 15:32 76 22 85 04/22/20 15:04 86 04/22/20 15:00 81 20 157/68 (97) 96 04/22/20 15:00 18 165/70 Mechanical Ventilator 85 04/22/20 15:00 18 165/70 Mechanical Ventilator 85 04/22/20 14:00 88 22 181/85 (117) 96 04/22/20 14:00 19 168/78 Mechanical Ventilator 90 04/22/20 14:00 24 174/85 Mechanical Ventilator 90 04/22/20 13:20 85 04/22/ 13:00 70 20 141/64 (89) 93 04/22/ 13:00 20 141/64 90 04/22/20 13:00 18 141/64 Mechanical Ventilator 90 04/22/20 13:00 85 04/22/20 12:00 97.5 61 18 111/56 (74) 93 04/22/20 12:00 18 104/54 Mechanical Ventilator 90 04/22/20 12:00 18 104/54 Mechanical Ventilator 90 04/22/20 12:00 90 04/22/20 12:00 59 04/22/20 12:00 Mechanical Ventilator 04/22/20 11:39 62 04/22/20 11:30 59 18 90 04/22/20 11:00 60 18 104/55 (71) 93 04/22/20 11:00 18 105/52 Mechanical Ventilator 90 04/22/20 11:00 18 105/52 Mechanical Ventilator 90 04/22/20 10:30 59 18 92 Mechanical Ventilator 90 04/22/20 10:00 60 18 116/61 (79) 95 04/22/20 10:00 18 116/51 Mechanical Ventilator 90 04/22/20 10:00 18 116/61 Mechanical Ventilator 90 04/22/20 09:47 18 109/54 Mechanical Ventilator 90 04/22/20 09:00 18 108/55 Mechanical Ventilator 90 04/22/20 09:00 18 108/55 Mechanical Ventilator 90 04/22/20 09:00 57 18 108/56 (73) 94 Intake and Output 04/22/20 04/23/20 19:00 07:00 Intake Total 1388.5 ml 1480.0 ml Output Total 1730 ml 1620 ml Balance -341.5 ml -140.0 ml Free Water 60 ml IV Total 728.5 ml 830.0 ml Tube Feeding 600 ml 600 ml Other 50 ml Output Urine Total 1720 ml 1590 ml Stool Total 10 ml 30 ml Height (Feet): 5 Height (Inches): 10.00 Weight (Pounds): 240 General Appearance: no apparent distress EENT: normal ENT inspection Neck: supple Cardiovascular: normal rate Respiratory/Chest: decreased breath sounds Abdomen: normal bowel sounds, non tender, soft Extremities: non-tender Assessment/Plan Status: not improved, unchanged Assessment/Plan: hep c + but neg RNA OGTF reglan 10 mg repeat labs fu LFTS>>>improving worsening resp status will fu Da Quintero MD Apr 23, 2020 08:45
--- NOTE | 2020-04-23 09:00 | NUR ---
NURSE NOTES: Pt's VSS, afebrile. OGT placement checked, tip of tube in stomach. Pt's tube feeding residual checked, 30mL of yellow drainage noted. Scheduled medications given per MD order, pt tolerated well. Will continue to monitor.
[2020-04-23] MEDS: Lansoprazole 15mg cap GT SCH ×2 (09:05→20:24)
[2020-04-23] MEDS: Solu-MEDROL 40mg Inj IVP SCH ×2 (09:05→20:24)
[2020-04-23] MEDS: Enoxaparin 80mg Inj SUBQ SCH ×2 (09:06→21:13)
[2020-04-23 11:19] LABS: BASOPHILS % (AUTO) 1.5 % (0.0-2.0); EOSINOPHILS % (AUTO) 0.4 % (0.0-3.0); HEMATOCRIT 28.7 % (42.0-52.0); HEMOGLOBIN 8.9 G/DL (14.2-18.0); LYMPHOCYTES % (AUTO) 11.6 % (20.0-45.0); MEAN CORPUSCULAR VOLUME 91 FL (80-99); MONOCYTES % (AUTO) 5.4 % (1.0-10.0); NEUTROPHILS % (AUTO) 81.1 % (45.0-75.0); PLATELET COUNT 290 K/UL (150-450); RED BLOOD COUNT 3.15 M/UL (4.70-6.10); RED CELL DISTRIBUTION WIDTH 17.6 % (11.6-14.8); WHITE BLOOD COUNT 5.3 K/UL (4.8-10.8)
[2020-04-23 11:26] LABS: ANION GAP 3 mmol/L (5-15); BLOOD UREA NITROGEN 15 mg/dL (7-18); CALCIUM 8.5 MG/DL (8.5-10.1); CARBON DIOXIDE 34 MMOL/L (21-32); CHLORIDE 104 MMOL/L (98-107); CREATININE 0.3 MG/DL (0.55-1.30); POTASSIUM 4.1 MMOL/L (3.5-5.1); SODIUM 141 MMOL/L (136-145)
--- NOTE | 2020-04-23 11:49 | NUR ---
NURSE NOTES: Scheduled novolog not given due to pt's BG is 121. Pt's VSS, no signs of distress noted. Safety precautions maintained. Will continue to monitor.
--- NOTE | 2020-04-23 12:26 | Cardiology Progress Note ---
Assessment/Plan Assessment/Plan Acute covid 19 pneumonia hypoxemia infiltrate bilat bacteremia hypernatremia / hyponatremia mild abn lfts tachy post intubation fever fungemia dvt upper ext now on 75 % fio2 , have been sucessfuly weaned form 100 % yet !! keep titrate slowly 2-[address] fry full sedated with fentanyl and versed not afebrile now hypoxemia unlikely cardiac related tube feeding being tolerated echo reviewed last on 04/06 still shows normal lv function no valve pathology cxr still showing bilateral lower lobe infiltrates as of04/18 tele reviewed sinus now is on full dose anticoag due to dvt ue cr is stable d/w rn keep dry watch bicarb hsi abg show good oxygen level from 04/21 covid pcr negative , however considering that it took 3 tests to finally initially identify his covid infection i am not sure if we can trust Subjective ROS Limited/Unobtainable: Yes Subjective not communicative dionisio vent Objective Last 24 Hour Vital Signs Date Time Temp Pulse Resp B/P (MAP) Pulse Ox O2 Delivery O2 Flow Rate FiO2 04/23/20 11:13 18 104/57 Mechanical Ventilator 75 04/23/20 10:23 75 04/23/20 10:00 75 04/23/20 10:00 74 18 145/82 (103) 100 04/23/20 09:00 67 19 143/77 (99) 100 04/23/20 08:11 56 04/23/20 08:00 80 04/23/20 08:00 97.8 57 18 121/64 (83) 100 04/23/20 08:00 Mechanical Ventilator 04/23/20 07:54 56 18 80 04/23/20 07:00 18 113/56 Mechanical Ventilator 80 04/23/20 07:00 18 113/56 Mechanical Ventilator 80 04/23/20 07:00 60 18 113/56 (75) 100 04/23/20 06:00 14 158/84 Mechanical Ventilator 80 04/23/20 06:00 14 158/84 Mechanical Ventilator 80 04/23/20 06:00 74 14 158/84 (108) 100 04/23/20 05:33 18 133/69 Mechanical Ventilator 80 04/23/20 05:00 16 134/71 Mechanical Ventilator 80 04/23/20 05:00 16 134/71 Mechanical Ventilator 80 04/23/20 05:00 72 16 134/71 (92) 100 04/23/20 04:30 85 17 160/80 (106) 98 04/23/20 04:27 28 173/79 Mechanical Ventilator 80 04/23/20 04:00 98.1 94 20 182/70 (107) 99 04/23/20 04:00 94 04/23/20 04:00 20 182/70 Mechanical Ventilator 80 04/23/20 04:00 20 182/70 Mechanical Ventilator 80 04/23/20 04:00 Mechanical Ventilator 04/23/20 04:00 80 04/23/20 03:00 73 19 142/72 (95) 100 04/23/20 03:00 19 142/72 Mechanical Ventilator 80 04/23/20 03:00 19 142/72 Mechanical Ventilator 80 04/23/20 02:00 18 112/57 Mechanical Ventilator 80 04/23/20 02:00 18 134/74 Mechanical Ventilator 80 04/23/20 02:00 66 18 134/74 (94) 100 04/23/20 01:40 80 04/23/20 01:37 61 18 80 04/23/20 01:00 58 18 114/58 (76) 100 04/23/20 01:00 18 114/58 Mechanical Ventilator 80 04/23/20 01:00 18 114/58 Mechanical Ventilator 85 04/23/20 00:00 98.1 60 18 112/57 (75) 100 04/23/20 00:00 85 04/23/20 00:00 60 04/23/20 00:00 Mechanical Ventilator 04/23/20 00:00 18 112/57 Mechanical Ventilator 85 04/23/20 00:00 18 112/57 Mechanical Ventilator 85 04/22/20 23:14 18 117/61 Mechanical Ventilator 85 04/22/20 23:00 18 117/61 Mechanical Ventilator 85 04/22/20 23:00 18 117/61 Mechanical Ventilator 85 04/22/20 23:00 61 18 117/61 (79) 100 04/22/20 22:00 62 18 109/58 (75) 100 04/22/20 22:00 18 109/58 Mechanical Ventilator 85 04/22/20 22:00 18 109/58 Mechanical Ventilator 85 04/22/20 21:39 17 112/60 Mechanical Ventilator 85 04/22/20 21:00 69 18 118/59 (78) 100 2/20/21 21:00 18 118/59 Mechanical Ventilator 85 2/20/21 21:00 18 118/59 Mechanical Ventilator 85 2/20/21 20:30 18 124/60 Mechanical Ventilator 85 2/20/21 20:15 74 18 127/61 (83) 100 2/20/21 20:15 18 127/61 Mechanical Ventilator 85 2/20/21 20:00 98.1 79 17 133/62 (85) 100 04/22/ 20:00 Mechanical Ventilator 220/21 20:00 17 133/62 Mechanical Ventilator 85 220/21 20:00 17 133/62 Mechanical Ventilator 85 2/20/21 20:00 85 220/21 19:50 71 18 85 220/ 19:45 96 21 175/83 (113) 100 04/22/20 19:45 21 175/83 Mechanical Ventilator 85 2/21 19:43 94 21 193/89 (123) 100 04/22/20 19:36 90 04/22/20 19:30 17 209/99 Mechanical Ventilator 85 04/22/20 19:30 102 17 209/99 (135) 100 04/22/20 19:00 92 20 182/87 (118) 99 04/22/21 19:00 19 182/87 Mechanical Ventilator 85 04/22/20 19:00 19 182/87 Mechanical Ventilator 85 04/22/20 18:00 19 162/86 Mechanical Ventilator 85 04/22/21 18:00 19 162/84 Mechanical Ventilator 85 20/21 18:00 84 20 175/78 (110) 99 04/22/20 17:28 18 104/55 Mechanical Ventilator 85 04/22/21 17:00 79 18 104/55 (71) 94 20/21 17:00 18 104/55 Mechanical Ventilator 85 20/21 17:00 18 104/55 Mechanical Ventilator 85 20/21 16:00 97.9 95 26 146/73 (97) 93 20/21 16:00 85 20/21 16:00 18 146/73 Mechanical Ventilator 85 220/21 16:00 18 146/73 Mechanical Ventilator 85 220/21 16:00 Mechanical Ventilator 04/22/20 15:32 76 22 85 220/21 15:04 86 2 15:00 81 20 157/68 (97) 96 04/22/20 15:00 18 165/70 Mechanical Ventilator 85 04/22/20 15:00 18 165/70 Mechanical Ventilator 85 04/22/20 14:00 88 22 181/85 (117) 96 04/22/20 14:00 19 168/78 Mechanical Ventilator 90 04/22/20 14:00 24 174/85 Mechanical Ventilator 90 04/22/20 13:20 85 04/22/20 13:00 70 20 141/64 (89) 93 04/22/20 13:00 20 141/64 90 04/22/20 13:00 18 141/64 Mechanical Ventilator 90 04/22/20 13:00 85 General Appearance: no apparent distress, on vent, patient on isolation Extremities: no swelling Intake and Output 04/22/20 04/23/20 19:00 07:00 Intake Total 1388.5 ml 1480.0 ml Output Total 1730 ml 1620 ml Balance -341.5 ml -140.0 ml Free Water 60 ml IV Total 728.5 ml 830.0 ml Tube Feeding 600 ml 600 ml Other 50 ml Output Urine Total 1720 ml 1590 ml Stool Total 10 ml 30 ml Laboratory Tests Test 04/23/20 11:06 White Blood Count 5.3 K/UL (4.8-10.8) Red Blood Count 3.15 M/UL (4.70-6.10) L Hemoglobin 8.9 G/DL (14.2-18.0) L Hematocrit 28.7 % (42.0-52.0) L Mean Corpuscular Volume 91 FL (80-99) Mean Corpuscular Hemoglobin 28.1 PG (27.0-31.0) Mean Corpuscular Hemoglobin Concent 30.8 G/DL (32.0-36.0) L Red Cell Distribution Width 17.6 % (11.6-14.8) H Platelet Count 290 K/UL (150-450) Mean Platelet Volume 6.2 FL (6.5-10.1) L Neutrophils (%) (Auto) 81.1 % (45.0-75.0) H Lymphocytes (%) (Auto) 11.6 % (20.0-45.0) L Monocytes (%) (Auto) 5.4 % (1.0-10.0) Eosinophils (%) (Auto) 0.4 % (0.0-3.0) Basophils (%) (Auto) 1.5 % (0.0-2.0) Sodium Level 141 MMOL/L (136-145) Potassium Level 4.1 MMOL/L (3.5-5.1) Chloride Level 104 MMOL/L (98-107) Carbon Dioxide Level 34 MMOL/L (21-32) H Anion Gap 3 mmol/L (5-15) L Blood Urea Nitrogen 15 mg/dL (7-18) Creatinine 0.3 MG/DL (0.55-1.30) L Estimat Glomerular Filtration Rate > 60 mL/min (>60) Glucose Level 119 MG/DL (74-106) H Calcium Level 8.5 MG/DL (8.5-10.1) Objective pt seen persoanlly Manan Awan MD Apr 23, 2020 12:26
--- NOTE | 2020-04-23 12:47 | Nephrology Progress Note ---
Assessment/Plan Problem List: (1) Dehydration (2) Electrolyte imbalance (3) COVID-19 virus infection (4) Pneumonia (5) DMII (diabetes mellitus, type 2) (6) Protein malnutrition Assessment Azotemia, hypernatremia Hypoalbuminemia Staff Otilia bacteremia COVID-19 isolation, pneumonia, bilateral infiltrate Hypertension Diabetes mellitus History of smoking Plan April 23: Status unchanged. Full code. Intubated on ventilator. FiO2 75%. Labs reviewed. Renal parameters stable. Continue per consultants. April 22: Labs reviewed. Patient remains intubated on ventilator and full code. FiO2 90%. Day 77 hospitalization. Not much to add from renal standpoint of view April 21: No CHEM panel drawn today. FiO2 60%. Patient full code. Continue per consultants. April 20: Labs reviewed. Renal parameters stable. Patient remains full code. Intubated on ventilator with FiO2 currently at 70%. Continue per consultants. April 19: No labs drawn today. Remains full code on FiO2 of 100%. Continue per consultants. April 18: Status quo. Labs reviewed. Renal parameters stable. April 17: Status quo. Intubated on ventilator. Full code. Labs reviewed. Electrolytes and renal parameters stable. Continue per consultants. April 16: Girlfriend in the room. Patient awake. Intubated. Full code. Labs reviewed. Abnormal electrolyte addressed. Continue per consultants. April 15: Labs reviewed. Electrolytes and renal parameters stable. Patient full code. Continues to be intubated on ventilator. April 14: Status quo. Labs reviewed. Remains intubated on ventilator. Full code. Continue per consultants. April 13: Status quo. Labs reviewed. Renal parameters electrolytes stable. Continue per current treatment plan. April 12: On higher FiO2. Will resume Lasix daily. Continue to monitor el ectrolytes and renal parameters. Per consultants. April 11: FiO2 went up to 85%. Renal parameters and electrolytes reasonably well-maintained. Will monitor serum potassium. Will give IV Lasix. April 10: Status quo. Labs reviewed. Remains intubated on ventilator with FiO2 of 65%. Remains full code. Stable from renal standpoint to view. Repeat vitamin D level on April 08 pending April 09: Status quo. Labs reviewed. Stable from renal standpoint of view. Continue per consultants. April 08: Discussed with RN. Labs reviewed. Clinically improving. Requires lower PEEP. Continue per pulmonary. Continue to monitor renal parameters. April 07: Remains full code and on ventilator. Labs reviewed. Renal parameters and electrolytes stable. Continue per consultants. Blood pressure marginally improved. April 06: Full code. On ventilator. Blood pressure 80-90 systolic. IV Lasix discontinued. Free water through tube feeding ordered. Continue to monitor electrolytes and serum sodium. Down on fentanyl as possible. Discussed with RN Kevin. Clonidine patch discontinued. April 05: Status quo. Remains full code. Remains intubated. Labs reviewed. Renal parameters stable. Serum sodium 150 unchanged. Continue per consultants. April 04: Remains intubated and on ventilator. Remains full code. Labs reviewed. Serum sodium 150 unchanged. Renal parameters stable. Continue per ID and pulmonary. April 03: Intubated. On ventilator. Full code. Labs reviewed. Serum sodium 150 unchanged. Continue to monitor renal parameters. Continue per pulmonary and ID. April 02: Full code. On ventilator. Discussed with RN. Serum sodium slightly higher. Will cut down on IV Lasix. Continue per consultants. Continue to monitor renal parameters and electrolytes. April 01: Full code. Remains on ventilator. Labs reviewed. Stable from renal standpoint of view. Continue per consultants. March 31: Full code . Remains intubated on ventilator. Labs reviewed. Patient appears toxic. Discussed with RN. Maintenance IV discontinued. Medication list reviewed. Blood pressure medication stopped due to low blood pressure. Levemir insulin stopped. Continue monitor blood sugar and sliding scale insulin. March 30: Full code. On ventilator. Labs reviewed. Clonidine patch dose increased. Lasix increased. 3% saline 1 time ordered. Continue to monitor electrolytes and renal parameters. March 29: Remains full code. On mechanical ventilation. On tube feeding. Will DC TPN. Will start on maintenance IV fluid. Continue to monitor renal parameters. March 28: On BiPAP. Full code. On TPN. Labs reviewed. Discussed with pharmacy. Continue as is. Watch serum potassium. March 27: Remains on BiPAP. No chemistry panel done today. Full code. On TPN. Will check lab tomorrow. March 26: Remains on BiPAP. Remains on TPN. Labs reviewed. Electrolytes and chemistries within normal limits. Continue as is. March 25: Remains on TPN. Labs reviewed. Discussed with pharmacy. Change IV Protonix to p.o. Continue 3% saline infusion with Lasix. Patient full code. March 24: Continue to be on TPN. Labs are reviewed. Aim to collect electrolytes. Discussed with pharmacy. Continue current consultants. March 23: Continues to be on TPN. Labs reviewed. Electrolytes and chemistries all acceptable. Discussed with pharmacy. Continue current management. March 22: On TPN. Labs reviewed. Low sodium noted. 3% saline to be continued. Continue to monitor electrolytes. Discussed with pharmacy. March 21: On TPN. Labs reviewed. Continue 3% saline and Lasix for mild hyponatremia. Continue TPN as these. Discussed with pharmacy. March 20: Remains on TPN. Labs reviewed. Serum sodium higher on IV Lasix and 3% saline infusion. Continue TPN as is. Continue to monitor renal parameters and electrolytes. Discussed with Dr. Mata March 19: Remains on TPN. Labs reviewed. Serum sodium 128. Will give 3% saline with IV Lasix. Continue to monitor electrolytes. No change in TPN composition. Discussed with pharmacy. March 18: Remains on TPN. Labs reviewed. Discussed with pharmacist. Will give 3 doses of IV Lasix 20 mg every 8 hours. Continue to monitor serum sodium electrolytes uric acid. White blood cells down. Continue per consultants. March 17: On TPN. Labs reviewed. Discussed with pharmacist. Sodium content increase. Continue to monitor CMP. Patient continues to have leukocytosis. March 16: On TPN. Labs reviewed. Discussed with pharmacist. Appropriate changes made. Continue to monitor electrolytes. March 15: Remains on TPN. Labs reviewed. Discussed with pharmacist. Continue per current management. March 14: Remains on TPN. Labs reviewed, stable. Vitamin D level low, replacement ordered. Continue to monitor electrolytes and renal parameters. March 13: Patient remains on TPN. Discussed with pharmacist. TPN's sodium content adjusted. Labs reviewed. Continue to monitor electrolytes. Blood pressure remains stable. Continue per consultants. March 12: Patient on TPN. Labs reviewed. CPK remains elevated. Abnormal electrolytes and high blood sugar discussed with pharmacist and TPN adjusted. Continue to monitor labs. Oral Protonix added. Ibuprofen discontinued. Can continue to monitor electrolytes and chemistries. Levemir for high blood sugar added. March 11: Patient on TPN. Labs as of 11:15 AM is still pending. Continue per current treatment plan. Will check labs and adjust TPN as needed. Continue per consultants. March 10: Patient on TPN. Labs reviewed. Electrolytes overall stable. CPK is elevated. Will monitor electrolyte, CPK level, lipid panel. Continue per consultants. Discussed with pharmacist. Discussed with RN. Nutritional evaluation noted. Previously: D5W 100 cc an hour Monitor electrolytes renal parameters TPN and Intralipid ordered Will follow Continue per consultants Dietary consult requested Subjective ROS Limited/Unobtainable: Yes Objective Objective Last 24 Hour Vital Signs Date Time Temp Pulse Resp B/P (MAP) Pulse Ox O2 Delivery O2 Flow Rate FiO2 04/23/20 12:00 97.9 60 17 126/63 (84) 100 04/23/20 12:00 75 04/23/20 12:00 Mechanical Ventilator 04/23/20 11:23 63 04/23/20 11:13 18 104/57 Mechanical Ventilator 75 04/23/20 11:00 61 18 104/57 (73) 98 04/23/20 10:23 75 04/23/20 10:00 75 04/23/20 10:00 74 18 145/82 (103) 100 04/23/20 09:00 67 19 143/77 (99) 100 04/23/20 08:11 56 04/23/20 08:00 80 04/23/20 08:00 97.8 57 18 121/64 (83) 100 04/23/20 08:00 Mechanical Ventilator 04/23/20 07:54 56 18 80 04/23/20 07:00 18 113/56 Mechanical Ventilator 80 04/23/20 07:00 18 113/56 Mechanical Ventilator 80 04/23/20 07:00 60 18 113/56 (75) 100 04/23/20 06:00 14 158/84 Mechanical Ventilator 80 04/23/20 06:00 14 158/84 Mechanical Ventilator 80 04/23/20 06:00 74 14 158/84 (108) 100 04/23/20 05:33 18 133/69 Mechanical Ventilator 80 04/23/20 05:00 16 134/71 Mechanical Ventilator 80 04/23/20 05:00 16 134/71 Mechanical Ventilator 80 04/23/20 05:00 72 16 134/71 (92) 100 04/23/20 04:30 85 17 160/80 (106) 98 04/23/20 04:27 28 173/79 Mechanical Ventilator 80 04/23/20 04:00 98.1 94 20 182/70 (107) 99 04/23/20 04:00 94 04/23/20 04:00 20 182/70 Mechanical Ventilator 80 04/23/20 04:00 20 182/70 Mechanical Ventilator 80 04/23/20 04:00 Mechanical Ventilator 04/23/20 04:00 80 04/23/20 03:00 73 19 142/72 (95) 100 04/23/20 03:00 19 142/72 Mechanical Ventilator 80 04/23/20 03:00 19 142/72 Mechanical Ventilator 80 04/23/20 02:00 18 112/57 Mechanical Ventilator 80 04/23/20 02:00 18 134/74 Mechanical Ventilator 80 04/23/20 02:00 66 18 134/74 (94) 100 04/23/20 01:40 80 04/23/20 01:37 61 18 80 04/23/20 01:00 58 18 114/58 (76) 100 04/23/20 01:00 18 114/58 Mechanical Ventilator 80 04/23/20 01:00 18 114/58 Mechanical Ventilator 85 04/23/20 00:00 98.1 60 18 112/57 (75) 100 04/23/20 00:00 85 04/23/20 00:00 60 04/23/20 00:00 Mechanical Ventilator 04/23/20 00:00 18 112/57 Mechanical Ventilator 85 04/23/20 00:00 18 112/57 Mechanical Ventilator 85 04/22/20 23:14 18 117/61 Mechanical Ventilator 85 04/22/20 23:00 18 117/61 Mechanical Ventilator 85 04/22/20 23:00 18 117/61 Mechanical Ventilator 85 04/22/20 23:00 61 18 117/61 (79) 100 04/22/20 22:00 62 18 109/58 (75) 100 04/22/20 22:00 18 109/58 Mechanical Ventilator 85 04/22/20 22:00 18 109/58 Mechanical Ventilator 85 04/22/20 21:39 17 112/60 Mechanical Ventilator 85 04/22/20 21:00 69 18 118/59 (78) 100 04/22/20 21:00 18 118/59 Mechanical Ventilator 85 04/22/20 21:00 18 118/59 Mechanical Ventilator 85 04/22/20 20:30 18 124/60 Mechanical Ventilator 85 2/20/21 20:15 74 18 127/61 (83) 100 220/21 20:15 18 127/61 Mechanical Ventilator 85 220/21 20:00 98.1 79 17 133/62 (85) 100 21 20:00 Mechanical Ventilator 2/20/21 20:00 17 133/62 Mechanical Ventilator 85 220/21 20:00 17 133/62 Mechanical Ventilator 85 2/21 20:00 85 20/21 19:50 71 18 85 220/21 19:45 96 21 175/83 (113) 100 2 19:45 21 175/83 Mechanical Ventilator 85 2/ 19:43 94 21 193/89 (123) 100 04/22/20 19:36 90 04/22/20 19:30 17 209/99 Mechanical Ventilator 85 2/ 19:30 102 17 209/99 (135) 100 04/22/20 19:00 92 20 182/87 (118) 99 04/22/20 19:00 19 182/87 Mechanical Ventilator 85 04/22/20 19:00 19 182/87 Mechanical Ventilator 85 04/22/20 18:00 19 162/86 Mechanical Ventilator 85 04/22/ 18:00 19 162/84 Mechanical Ventilator 85 04/22/ 18:00 84 20 175/78 (110) 99 04/22/20 17:28 18 104/55 Mechanical Ventilator 85 04/22/ 17:00 79 18 104/55 (71) 94 04/22/21 17:00 18 104/55 Mechanical Ventilator 85 04/22/21 17:00 18 104/55 Mechanical Ventilator 85 04/22/20 16:00 97.9 95 26 146/73 (97) 93 04/22/20 16:00 85 20/21 16:00 18 146/73 Mechanical Ventilator 85 04/22/21 16:00 18 146/73 Mechanical Ventilator 85 20/21 16:00 Mechanical Ventilator 04/22/20 15:32 76 22 85 220/21 15:04 86 20/21 15:00 81 20 157/68 (97) 96 04/22/ 15:00 18 165/70 Mechanical Ventilator 85 20/21 15:00 18 165/70 Mechanical Ventilator 85 2/20/21 14:00 88 22 181/85 (117) 96 04/22/20 14:00 19 168/78 Mechanical Ventilator 90 04/22/20 14:00 24 174/85 Mechanical Ventilator 90 04/22/20 13:20 85 04/22/20 13:00 70 20 141/64 (89) 93 04/22/20 13:00 20 141/64 90 04/22/20 13:00 18 141/64 Mechanical Ventilator 90 04/22/20 13:00 85 Intake and Output 04/22/20 04/23/20 19:00 07:00 Intake Total 1388.5 ml 1480.0 ml Output Total 1730 ml 1620 ml Balance -341.5 ml -140.0 ml Free Water 60 ml IV Total 728.5 ml 830.0 ml Tube Feeding 600 ml 600 ml Other 50 ml Output Urine Total 1720 ml 1590 ml Stool Total 10 ml 30 ml Current Medications Medications (Trade) Dose Ordered Sig/Dennis Route PRN Reason Start Time Stop Time Status Last Admin Dose Admin Acetaminophen (Tylenol) 650 mg Q4H PRN ORAL Temp >100.5 04/13/20 00:30 05/13/20 00:29 04/13/20 01:30 Bisacodyl (Dulcolax) 10 mg Q12H PRN RECTAL Constipation 03/18/20 16:45 06/16/20 16:44 Chlorhexidine Gluconate (Marlen-Hex 2%) 1 applic DAILY@2000 TOPIC 03/30/20 20:00 06/28/20 19:59 04/22/20 19:31 Dextrose (Dextrose 50%) 25 ml Q30M PRN IV Hypoglycemia 03/29/20 20:45 06/27/20 20:44 Dextrose (Dextrose 50%) 50 ml Q30M PRN IV Hypoglycemia 03/29/20 20:45 06/27/20 20:44 Enoxaparin Sodium (Lovenox) 80 mg EVERY 12 HOURS SUBQ 04/06/20 21:00 07/05/20 20:59 04/23/20 09:06 Fentanyl Citrate 250 ml @ 1 mls/hr Q24H IV 04/23/20 13:00 04/25/20 12:59 Furosemide (Lasix) 20 mg DAILY IV 04/22/20 12:45 05/22/20 12:44 04/23/20 09:05 Hydralazine HCl (Apresoline) 10 mg Q4H PRN IV For High Blood Pressure 03/30/20 12:15 06/28/20 12:14 04/21/20 05:20 Insulin Aspart (NovoLOG) Q6HR SUBQ 03/30/20 00:00 06/28/20 00:00 04/20/20 23:34 Labetalol HCl (Normodyne) 10 mg Q4H PRN IV sbp greater tahtn 160 03/28/20 17:30 04/27/20 17:29 04/21/20 06:02 Lansoprazole (Prevacid) 15 mg Q12HR GT 04/20/20 21:00 05/20/20 20:59 04/23/20 09:05 Methylprednisolone Sodium Succinate (Solu-MEDROL) 20 mg Q12HR IVP 04/12/20 21:00 06/20/20 20:59 04/23/20 09:05 Metoclopramide HCl (Reglan) 10 mg Q6H IVP 03/30/20 15:00 04/29/20 14:59 04/23/20 09:05 Midazolam HCl 200 ml @ 0 mls/hr Q24H PRN IV Agitation 04/17/20 22:30 04/24/20 22:29 04/23/20 11:13 Morphine Sulfate (Morphine Sulfate) 4 mg Q6H PRN IVP agitation despite sedating med 04/21/20 12:45 04/28/20 12:44 04/23/20 04:28 Laboratory Tests 04/23/20 11:06: White Blood Count 5.3, Red Blood Count 3.15L, Hemoglobin 8.9L, Hematocrit 28.7L, Mean Corpuscular Volume 91, Mean Corpuscular Hemoglobin 28.1, Mean Corpuscular Hemoglobin Concent 30.8L, Red Cell Distribution Width 17.6H, Platelet Count 290, Mean Platelet Volume 6.2L, Neutrophils (%) (Auto) 81.1H, Lymphocytes (%) (Auto) 11.6L, Monocytes (%) (Auto) 5.4, Eosinophils (%) (Auto) 0.4, Basophils (%) (Auto) 1.5, Sodium Level 141, Potassium Level 4.1, Chloride Level 104, Carbon Dioxide Level 34H, Anion Gap 3L, Blood Urea Nitrogen 15, Creatinine 0.3L, Estimat Glomerular Filtration Rate > 60, Glucose Level 119H, Calcium Level 8.5 Height (Feet): 5 Height (Inches): 10.00 Weight (Pounds): 240 General Appearance: no apparent distress EENT: other - Intubated on ventilator Cardiovascular: normal rate Respiratory/Chest: decreased breath sounds Abdomen: distended Rubin Cooper MD Apr 23, 2020 12:47
--- NOTE | 2020-04-23 13:10 | Surgery Progress Note ---
Surgery Progress Note Subjective Symptoms: improved Objective Last 24 Hour Vital Signs Date Time Temp Pulse Resp B/P (MAP) Pulse Ox O2 Delivery O2 Flow Rate FiO2 04/23/20 12:00 97.9 60 17 126/63 (84) 100 04/23/20 12:00 75 04/23/20 12:00 Mechanical Ventilator 04/23/20 11:23 63 04/23/20 11:13 18 104/57 Mechanical Ventilator 75 04/23/20 11:00 61 18 104/57 (73) 98 04/23/20 10:23 75 04/23/20 10:00 75 04/23/20 10:00 74 18 145/82 (103) 100 04/23/20 09:00 17 149/74 Mechanical Ventilator 80 04/23/20 09:00 67 19 143/77 (99) 100 04/23/20 08:30 18 127/74 Mechanical Ventilator 80 04/23/20 08:15 18 131/59 Mechanical Ventilator 80 04/23/20 08:11 56 04/23/20 08:00 80 04/23/20 08:00 18 131/66 Mechanical Ventilator 80 04/23/20 08:00 97.8 57 18 121/64 (83) 100 04/23/20 08:00 Mechanical Ventilator 04/23/20 07:54 56 18 80 04/23/20 07:45 18 121/64 Mechanical Ventilator 80 04/23/20 07:30 18 109/53 Mechanical Ventilator 80 04/23/20 07:00 18 113/56 Mechanical Ventilator 80 04/23/20 07:00 18 113/56 Mechanical Ventilator 80 04/23/20 07:00 60 18 113/56 (75) 100 04/23/20 06:00 14 158/84 Mechanical Ventilator 80 04/23/20 06:00 14 158/84 Mechanical Ventilator 80 04/23/20 06:00 74 14 158/84 (108) 100 04/23/20 05:33 18 133/69 Mechanical Ventilator 80 04/23/20 05:00 16 134/71 Mechanical Ventilator 80 04/23/20 05:00 16 134/71 Mechanical Ventilator 80 04/23/20 05:00 72 16 134/71 (92) 100 04/23/20 04:30 85 17 160/80 (106) 98 04/23/20 04:27 28 173/79 Mechanical Ventilator 80 04/23/20 04:00 98.1 94 20 182/70 (107) 99 04/23/20 04:00 94 04/23/20 04:00 20 182/70 Mechanical Ventilator 80 04/23/20 04:00 20 182/70 Mechanical Ventilator 80 04/23/20 04:00 Mechanical Ventilator 04/23/20 04:00 80 04/23/20 03:00 73 19 142/72 (95) 100 04/23/20 03:00 19 142/72 Mechanical Ventilator 80 04/23/20 03:00 19 142/72 Mechanical Ventilator 80 04/23/20 02:00 18 112/57 Mechanical Ventilator 80 04/23/20 02:00 18 134/74 Mechanical Ventilator 80 04/23/20 02:00 66 18 134/74 (94) 100 04/23/20 01:40 80 04/23/20 01:37 61 18 80 04/23/20 01:00 58 18 114/58 (76) 100 04/23/20 01:00 18 114/58 Mechanical Ventilator 80 04/23/20 01:00 18 114/58 Mechanical Ventilator 85 04/23/20 00:00 98.1 60 18 112/57 (75) 100 04/23/20 00:00 85 04/23/20 00:00 60 04/23/20 00:00 Mechanical Ventilator 04/23/20 00:00 18 112/57 Mechanical Ventilator 85 04/23/20 00:00 18 112/57 Mechanical Ventilator 85 04/22/20 23:14 18 117/61 Mechanical Ventilator 85 04/22/20 23:00 18 117/61 Mechanical Ventilator 85 04/22/20 23:00 18 117/61 Mechanical Ventilator 85 04/22/20 23:00 61 18 117/61 (79) 100 04/22/20 22:00 62 18 109/58 (75) 100 04/22/20 22:00 18 109/58 Mechanical Ventilator 85 04/22/20 22:00 18 109/58 Mechanical Ventilator 85 04/22/20 21:39 17 112/60 Mechanical Ventilator 85 04/22/20 21:00 69 18 118/59 (78) 100 04/22/20 21:00 18 118/59 Mechanical Ventilator 85 04/22/20 21:00 18 118/59 Mechanical Ventilator 85 04/22/20 20:30 18 124/60 Mechanical Ventilator 85 2/20/21 20:15 74 18 127/61 (83) 100 220/21 20:15 18 127/61 Mechanical Ventilator 85 220/21 20:00 98.1 79 17 133/62 (85) 100 21 20:00 Mechanical Ventilator 2/20/21 20:00 17 133/62 Mechanical Ventilator 85 220/21 20:00 17 133/62 Mechanical Ventilator 85 2/21 20:00 85 20/21 19:50 71 18 85 220/21 19:45 96 21 175/83 (113) 100 2 19:45 21 175/83 Mechanical Ventilator 85 2/ 19:43 94 21 193/89 (123) 100 04/22/20 19:36 90 04/22/20 19:30 17 209/99 Mechanical Ventilator 85 2/ 19:30 102 17 209/99 (135) 100 04/22/20 19:00 92 20 182/87 (118) 99 04/22/20 19:00 19 182/87 Mechanical Ventilator 85 04/22/20 19:00 19 182/87 Mechanical Ventilator 85 04/22/20 18:00 19 162/86 Mechanical Ventilator 85 04/22/ 18:00 19 162/84 Mechanical Ventilator 85 04/22/ 18:00 84 20 175/78 (110) 99 04/22/20 17:28 18 104/55 Mechanical Ventilator 85 04/22/ 17:00 79 18 104/55 (71) 94 04/22/21 17:00 18 104/55 Mechanical Ventilator 85 04/22/21 17:00 18 104/55 Mechanical Ventilator 85 04/22/20 16:00 97.9 95 26 146/73 (97) 93 04/22/20 16:00 85 20/21 16:00 18 146/73 Mechanical Ventilator 85 04/22/21 16:00 18 146/73 Mechanical Ventilator 85 20/21 16:00 Mechanical Ventilator 04/22/20 15:32 76 22 85 220/21 15:04 86 20/21 15:00 81 20 157/68 (97) 96 04/22/ 15:00 18 165/70 Mechanical Ventilator 85 20/21 15:00 18 165/70 Mechanical Ventilator 85 2/20/21 14:00 88 22 181/85 (117) 96 04/22/20 14:00 19 168/78 Mechanical Ventilator 90 04/22/20 14:00 24 174/85 Mechanical Ventilator 90 04/22/20 13:20 85 I&O Intake and Output 04/22/20 04/23/20 19:00 07:00 Intake Total 1388.5 ml 1480.0 ml Output Total 1730 ml 1620 ml Balance -341.5 ml -140.0 ml Free Water 60 ml IV Total 728.5 ml 830.0 ml Tube Feeding 600 ml 600 ml Other 50 ml Output Urine Total 1720 ml 1590 ml Stool Total 10 ml 30 ml Dressing: saturated Cardiovascular: RSR Respiratory: decreased breath sounds Abdomen: soft, non-tender, present bowel sounds, non-distended, decreased bowel sounds Extremities: no edema, no tenderness, no cyanosis Laboratory Tests Test 04/23/20 11:06 White Blood Count 5.3 K/UL (4.8-10.8) Red Blood Count 3.15 M/UL (4.70-6.10) L Hemoglobin 8.9 G/DL (14.2-18.0) L Hematocrit 28.7 % (42.0-52.0) L Mean Corpuscular Volume 91 FL (80-99) Mean Corpuscular Hemoglobin 28.1 PG (27.0-31.0) Mean Corpuscular Hemoglobin Concent 30.8 G/DL (32.0-36.0) L Red Cell Distribution Width 17.6 % (11.6-14.8) H Platelet Count 290 K/UL (150-450) Mean Platelet Volume 6.2 FL (6.5-10.1) L Neutrophils (%) (Auto) 81.1 % (45.0-75.0) H Lymphocytes (%) (Auto) 11.6 % (20.0-45.0) L Monocytes (%) (Auto) 5.4 % (1.0-10.0) Eosinophils (%) (Auto) 0.4 % (0.0-3.0) Basophils (%) (Auto) 1.5 % (0.0-2.0) Sodium Level 141 MMOL/L (136-145) Potassium Level 4.1 MMOL/L (3.5-5.1) Chloride Level 104 MMOL/L (98-107) Carbon Dioxide Level 34 MMOL/L (21-32) H Anion Gap 3 mmol/L (5-15) L Blood Urea Nitrogen 15 mg/dL (7-18) Creatinine 0.3 MG/DL (0.55-1.30) L Estimat Glomerular Filtration Rate > 60 mL/min (>60) Glucose Level 119 MG/DL (74-106) H Calcium Level 8.5 MG/DL (8.5-10.1) Plan Problems: (1) Pneumonia (2) Staphylococcus aureus bacteremia (3) COVID-19 virus infection (4) Chest pain (5) Hypertension (6) Dehydration (7) Electrolyte imbalance (8) DMII (diabetes mellitus, type 2) (9) Protein malnutrition (10) Respiratory insufficiency Assessment & Plan: 64-year-old male with respiratory insufficiency intubated in an intensive care unit. Patient has been unable to safely wean off ventilatory support. Surgery called to evaluate for tracheostomy. After careful evaluation patient is a candidate for tracheostomy. In the meantime will obtain consent. If consent obtained will proceed with scheduling. Thank you for your participation's care will follow recommendations Booker Rausch Apr 23, 2020 13:10
--- NOTE | 2020-04-23 13:27 | NUR ---
NURSE NOTES: Pt's VS remain stable, afebrile. No signs of distress noted. Safety precautions maintained. Will continue to monitor.
--- NOTE | 2020-04-23 15:30 | NUR ---
NURSE NOTES: Per MD Awan, change FiO2 titration frequency to Q6H. RT notified. Per RT, pt's FiO2 decreased to 70%. Pt tolerating titration well, O2 sat maintained between 95-100%. Pt calm & cooperative, no signs of distress noted, opens eyes spontaneously. Will continue to monitor pt.
--- NOTE | 2020-04-23 17:19 | NUR ---
NURSE NOTES: Pt's VS remain stable, no signs of distress noted. Pt's sacral optifoam changed, oral care provided, gown and bed linens changed. Pt's tube feeding changed. Safety precautions maintained. Will continue to monitor.
--- NOTE | 2020-04-23 19:17 | Infectious Diseases Prog Note ---
Assessment/Plan Assessment/Plan ASSESSMENT AND PLAN: 1. staph aureus bacteremia/mssa, ? source, ? endocarditis, sepsis, leukocytosis, ? CAP, PJP less likely with HIV negative and steroids < 1 month covid-19 +, hypoxia, sob, chest x-ray worse, ? PE, ? HCAP/aspiration pna recurrent fevers - ? fungal, ? OI leukocytosis noted - ? new infection, ? steroids cocci serology negative, legionella negative, beta 1,3 D-glucan wnl, Il-16 - 13.7 elevated LFT's - ? TPN, ? Bactrim - US without gallbladder disease, + steatosis - d/w GI - TPN more likely than bactrim as etiology e.coli uti - s/p treatment with rocephin, s/p treatment for presumptive pneumocystis pna + yeast in blood, fungemia, ? line infection, line changed worsening respiratory status, ? new aspiration pna/hcap, ? sepsis ? fungal/cynthia uti vs colonization - s/p zosyn, surveillance cultures negative to date, discontinue vancomycin - s/p micafungin -(post negative blood cultures - 04/02/20) - on solumedrol - picc line changed - bactrim for pneumocystis prophylaxis, s/p pneumocystis treatment - s/p tx for mssa bacteremia and ? endocarditis - monitor hypoxia, labs and chest x-ray - guarded condition - plan on trach - c.diff. negative 2. covid-19 isolation 3. Hypertension history. Blood pressure treatment primary care team. 4. Elevated blood sugars. Blood sugar treatment per primary care team. 5. No known drug allergies. 6. Social history is positive for smoking. 7. Family history is noncontributory. 8. MAR was noted. 9. Case was discussed with RN. 10. Continue treatment per primary consultants. Subjective Constitutional: Reports: other - on vent, bp stable, fio2-down to 70%; Denies: fever HEENT: Reports: congestion Respiratory: Reports: shortness of breath Cardiovascular: Denies: chest pain Gastrointestinal/Abdominal: Denies: nausea, vomiting, diarrhea Genitourinary: Reports: other - + joseph Psychiatric: Reports: other - NA Skin: Denies: rash Hematologic: Denies: bleeding Musculoskeletal: Reports: other - NA Allergies: Coded Allergies: No Known Allergies (Unverified , 02/05/20) Objective Last 24 Hour Vital Signs Date Time Temp Pulse Resp B/P (MAP) Pulse Ox O2 Delivery O2 Flow Rate FiO2 04/23/20 18:44 18 161/79 Mechanical Ventilator 70 04/23/20 18:00 18 158/78 Mechanical Ventilator 70 04/23/20 18:00 18 158/78 Mechanical Ventilator 70 04/23/20 18:00 66 19 142/80 (100) 99 04/23/20 17:00 18 124/63 Mechanical Ventilator 70 04/23/20 17:00 18 124/63 Mechanical Ventilator 70 04/23/20 17:00 62 18 124/63 (83) 100 04/23/20 16:00 Mechanical Ventilator 04/23/20 16:00 18 107/56 Mechanical Ventilator 70 04/23/20 16:00 18 107/56 Mechanical Ventilator 70 04/23/20 16:00 98.2 64 18 107/58 (74) 99 04/23/20 15:59 64 04/23/20 15:30 70 04/23/20 15:23 64 18 70 04/23/20 15:00 82 19 138/65 (89) 99 04/23/20 15:00 18 136/65 Mechanical Ventilator 70 04/23/20 15:00 18 136/65 Mechanical Ventilator 70 04/23/20 14:02 18 144/67 Mechanical Ventilator 75 04/23/20 14:00 18 134/63 Mechanical Ventilator 75 04/23/20 14:00 71 16 144/67 (92) 100 04/23/20 13:00 17 149/85 Mechanical Ventilator 75 04/23/20 13:00 18 149/85 Mechanical Ventilator 75 04/23/20 13:00 68 19 154/70 (98) 100 04/23/20 12:00 97.9 60 17 126/63 (84) 100 04/23/20 12:00 75 04/23/20 12:00 17 126/65 Mechanical Ventilator 75 04/23/20 12:00 17 126/65 Mechanical Ventilator 75 04/23/20 12:00 Mechanical Ventilator 04/23/20 11:23 63 04/23/20 11:13 18 104/57 Mechanical Ventilator 75 04/23/20 11:12 60 19 75 04/23/20 11:00 18 127/67 Mechanical Ventilator 75 04/23/20 11:00 18 127/67 Mechanical Ventilator 75 04/23/20 11:00 61 18 104/57 (73) 98 04/23/20 10:23 75 04/23/20 10:00 75 04/23/20 10:00 74 18 145/82 (103) 100 04/23/20 10:00 18 131/67 Mechanical Ventilator 75 04/23/20 10:00 18 131/67 Mechanical Ventilator 75 04/23/20 09:00 17 149/74 Mechanical Ventilator 80 04/23/20 09:00 17 149/74 Mechanical Ventilator 80 04/23/20 09:00 67 19 143/77 (99) 100 04/23/20 08:30 18 127/74 Mechanical Ventilator 80 04/23/20 08:15 18 131/59 Mechanical Ventilator 80 04/23/20 08:11 56 04/23/20 08:00 80 04/23/20 08:00 18 131/66 Mechanical Ventilator 80 04/23/20 08:00 18 131/66 Mechanical Ventilator 80 04/23/20 08:00 97.8 57 18 121/64 (83) 100 04/23/20 08:00 Mechanical Ventilator 04/23/20 07:54 56 18 80 04/23/20 07:45 18 121/64 Mechanical Ventilator 80 04/23/20 07:30 18 109/53 Mechanical Ventilator 80 04/23/20 07:00 18 113/56 Mechanical Ventilator 80 04/23/20 07:00 18 113/56 Mechanical Ventilator 80 04/23/20 07:00 60 18 113/56 (75) 100 04/23/20 06:00 14 158/84 Mechanical Ventilator 80 04/23/20 06:00 14 158/84 Mechanical Ventilator 80 04/23/20 06:00 74 14 158/84 (108) 100 04/23/20 05:33 18 133/69 Mechanical Ventilator 80 04/23/20 05:00 16 134/71 Mechanical Ventilator 80 04/23/20 05:00 16 134/71 Mechanical Ventilator 80 04/23/20 05:00 72 16 134/71 (92) 100 04/23/20 04:30 85 17 160/80 (106) 98 04/23/20 04:27 28 173/79 Mechanical Ventilator 80 04/23/20 04:00 98.1 94 20 182/70 (107) 99 04/23/20 04:00 94 04/23/20 04:00 20 182/70 Mechanical Ventilator 80 04/23/20 04:00 20 182/70 Mechanical Ventilator 80 04/23/20 04:00 Mechanical Ventilator 04/23/20 04:00 80 04/23/20 03:00 73 19 142/72 (95) 100 04/23/20 03:00 19 142/72 Mechanical Ventilator 80 04/23/20 03:00 19 142/72 Mechanical Ventilator 80 04/23/20 02:00 18 112/57 Mechanical Ventilator 80 04/23/20 02:00 18 134/74 Mechanical Ventilator 80 04/23/20 02:00 66 18 134/74 (94) 100 04/23/20 01:40 80 04/23/20 01:37 61 18 80 04/23/20 01:00 58 18 114/58 (76) 100 04/23/20 01:00 18 114/58 Mechanical Ventilator 80 04/23/20 01:00 18 114/58 Mechanical Ventilator 85 04/23/20 00:00 98.1 60 18 112/57 (75) 100 04/23/20 00:00 85 04/23/20 00:00 60 04/23/20 00:00 Mechanical Ventilator 04/23/20 00:00 18 112/57 Mechanical Ventilator 85 04/23/20 00:00 18 112/57 Mechanical Ventilator 85 04/22/20 23:14 18 117/61 Mechanical Ventilator 85 04/22/20 23:00 18 117/61 Mechanical Ventilator 85 04/22/20 23:00 18 117/61 Mechanical Ventilator 85 04/22/20 23:00 61 18 117/61 (79) 100 04/22/20 22:00 62 18 109/58 (75) 100 04/22/20 22:00 18 109/58 Mechanical Ventilator 85 04/22/20 22:00 18 109/58 Mechanical Ventilator 85 04/22/20 21:39 17 112/60 Mechanical Ventilator 85 04/22/20 21:00 69 18 118/59 (78) 100 04/22/20 21:00 18 118/59 Mechanical Ventilator 85 04/22/20 21:00 18 118/59 Mechanical Ventilator 85 04/22/20 20:30 18 124/60 Mechanical Ventilator 85 04/22/20 20:15 74 18 127/61 (83) 100 2/20/21 20:15 18 127/61 Mechanical Ventilator 85 04/22/20 20:00 98.1 79 17 133/62 (85) 100 04/22/20 20:00 Mechanical Ventilator 04/22/20 20:00 17 133/62 Mechanical Ventilator 85 04/22/20 20:00 17 133/62 Mechanical Ventilator 85 04/22/20 20:00 85 04/22/20 19:50 71 18 85 04/22/20 19:45 96 21 175/83 (113) 100 04/22/20 19:45 21 175/83 Mechanical Ventilator 85 04/22/20 19:43 94 21 193/89 (123) 100 04/22/20 19:36 90 04/22/20 19:30 17 209/99 Mechanical Ventilator 85 04/22/20 19:30 102 17 209/99 (135) 100 Height (Feet): 5 Height (Inches): 10.00 Weight (Pounds): 240 General Appearance: other - on vent HEENT: normocephalic, atraumatic, anicteric Respiratory/Chest: crackles/rales, rhonchi - bilaterally Cardiovascular: normal rate, regular rhythm, no gallop/murmur Abdomen: normal bowel sounds, soft, non tender, no organomegaly, non distended Genitourinary: other - + joseph Extremities: no cyanosis Skin: no rash Neurologic/Psychiatric: other - sedated, on vent Lymphatic: no neck adenopathy Musculoskeletal: no effusion CT chest: IMPRESSION: There are mild subpleural ground-glass and consolidating infiltrates in the dependent portions of both lower lobes and to lesser degree the upper lobes consistent with bilateral pneumonia. The infiltrates are typical for Covid 19. No evidence of pulmonary embolus. CT abdomen and pelvis: IMPRESSION: 1. Scattered hepatic hypodense lesions, too small to characterize on this examination without intravenous contrast. 2. Colonic diverticulosis without evidence of acute diverticulitis. 3. Scattered enlarged mesenteric lymph nodes, presumably reactive. teral pneumonia. The infiltrates are typical for Covid 19. No evidence of pulmonary embolus. Chest x-ray - 12/19/19 - Indication: Shortness of breath Technique: One view of the chest Comparison: 02/17/2020 Findings: Interim worsening of bilateral infiltrates, particularly on the right. The heart is borderline enlarged. The pleural spaces are clear. Left arm PICC is again demonstrated Impression: Worsening bilateral infiltrates over one day, likely pneumonia CT chest - 02/19/20 - IMPRESSION: Increased extensive patchy ground-glass opacities and densities throughout the lungs, suggestive of Covid 19 infection. Chest x-ray 02/23/20 - Procedure: XRAY Chest 1v As Indication: Reason For Exam: INFECT Technique: One view of the chest Comparison: 02/20/2020 Findings: Allowing for differences in exposure technique, bilateral mid and lower lung infiltrates are probably unchanged. The heart size is normal. The pleural spaces are clear. Impression: Unchanged, over 4 days, findings as above. Chest x-ray - 02/25/20 - FINDINGS: Lungs: Interval slightly worsening bilateral airspace disease. Pleural space: Unremarkable. No pneumothorax. Heart: Unremarkable. No cardiomegaly. Mediastinum: Unremarkable. Bones/joints: Unremarkable. IMPRESSION: Interval slightly worsening bilateral airspace disease. Chest x-ray - 03/02/20 - Procedure: XRAY Chest 1v Indication: Shortness of breath Technique: One view of the chest Comparison: 02/25/2020 Findings: Bilateral interstitial and airspace infiltrates are unchanged. The heart size is normal. Left arm PICC is again demonstrated Impression: Unchanged, over one day, findings as above. Chest x-ray - 03/06/20 - Procedure: XRAY Chest 1v Indication: Shortness of breath Technique: One view of the chest Comparison: 03/02/2020 Findings: Bilateral infiltrates are unchanged. Normal heart size. Pleural spaces are clear Chest x-ray - 03/12/10 - Impression: COMPARISON: Chest radiograph March 06, 2020. FINDINGS/IMPRESSION: Improving basilar infiltrates. Follow chest radiograph recommended. The upper lung finley are clear. No pneumothorax. Stable cardiomegaly. Stable left upper extremity PICC line. anged, over 4 days, findings as above. Chest x-ray - 03/17/20 - Procedure: XRAY Chest 1v Indication: Shortness of breath Technique: One view of the chest Comparison: 03/12/2020 Findings: Left arm PICC is again demonstrated. Infiltrates are unchanged. The heart size is upper limits of normal. Impression: Unchanged, over 5 days, findings as above. Abdominal US - IMPRESSION: 1. Gallbladder is normal. 2. Hepatic steatosis. 3. 1.7 cm cyst right kidney. Impression. Chest x-ray - Procedure: XRAY Chest 1v Indication: Shortness of breath Technique: One view of the chest Comparison: 03/17/2020 Findings: Bilateral right greater than left infiltrates again demonstrated. The heart size is normal. There is a left arm PICC in good position. Impression: Unchanged, over 5 days, findings as above. Chest x-ray - 03/29/20 - Procedure: XRAY Chest 1v Indication: Cough Technique: One view of the chest Comparison: 03/28/2020 Findings: Bilateral infiltrates are unchanged or slightly worse, allowing for differences in exposure technique. The pleural spaces are clear. The heart size is normal. Stable satisfactory position of endotracheal tube, left arm PICC. Orogastric tube has retracted somewhat the position remains satisfactory. Impression: Stable to slightly worse bilateral infiltrates. Otherwise little roll changer one day Chest x-ray - 03/31/20 - Procedure: XRAY Chest 1v Indication: Post endotracheal tube repositioning Technique: One view of the chest Comparison: 3 hours earlier Findings: Interim advancement of endotracheal tube, tip projecting approximately 5 cm above the sunny. Interim advancement of orogastric tube as well. Bilateral infiltrates are unchanged. Left arm PICC remains Impression: Improved and now satisfactory tube positions as described. ICU nurse Maeve notified at the time of interpretation Chest x-ray - 04/02/20 - COMPARISON: Chest x-rays dated 03/31/20 and 03/12/20. FINDINGS: Lungs: No significant change in bilateral prominent interstitial markings. The lungs are otherwise clear without focal consolidation. Pleural space: Unremarkable. The costophrenic angles are sharp. No visible pneumothorax. Heart: Unremarkable. No cardiomegaly. Mediastinum: Unremarkable. Bones/joints: Unremarkable. Tubes, lines and devices: Endotracheal tube tip 6.5 cm above the sunny. NG tube tip in the distal stomach. Telemetry leads overlie the thorax. IMPRESSION: No significant change in bilateral prominent interstitial markings. Procedure: XRAY Chest 1v Procedure: XRAY Chest 1v Reason for study: Shortness of breath 04/06/20 - Comparison films: 04/02/2020. FINDINGS: Endotracheal tube and NG tube remain in place. There is worsening of right basilar infiltrates. Some haziness in left lung base unchanged. Cardiac and mediastinal silhouette are within normal limits. CP angles are sharp. The bony thorax appear unremarkable. IMPRESSION: Worsening of right basilar infiltrate. Chest x-ray - 04/09/20 - Procedure: XRAY Chest 1v FILM CXR 1 VIEW INDICATION: Infection COMPARISON: April 05, 2020 FINDINGS: Single frontal view demonstrates a normal cardiomediastinal silhouette. Endotracheal tube in place with tip above the sunny. Elevation of the right hemidiaphragm. Interstitial prominence with bilateral lower lobe infiltrates. Lung bases appear worse from the prior exam. Small right effusion. Right-sided PICC line with tip in the superior vena cava. Enteric tube in place. IMPRESSION: Interstitial prominence and bilateral lower lobe pneumonia with worsening appearance from the prior study. Chest x-ray - 04/12/20 - Procedure: XRAY Chest 1v Indication: Shortness of breath Technique: One view of the chest Comparison: 04/09/2020 Findings: Stable satisfactory tube and line positions. Bilateral infiltrates have worsened slightly since prior study. The heart size is normal. Impression: Worsening bilateral infiltrates, over 3 days Chest x-ray - 04/15/20 - COMPARISON: 02/11/21. FINDINGS: Lungs: There is been no significant change in mild to moderate patchy diffuse bilateral alveolar infiltrates which are most prominent in the lung bases. Pleural space: Unremarkable. No pneumothorax. Heart: Unremarkable. No cardiomegaly. Mediastinum: Unremarkable. Bones/joints: Unremarkable. Tubes, lines and devices: There is an endotracheal tube, right-sided PICC line and NG tube in good position. IMPRESSION: There is been no significant change in mild to moderate patchy diffuse bilateral alveolar infiltrates which are most prominent in the lung bases. Chest x-ray - 04/18/20 - Procedure: XRAY Chest 1v Indication: Cough Technique: One view of the chest Comparison: 04/15/2020 Findings: Less optimal inspiration currently than previously. Stable satisfactory positions of endotracheal and orogastric tubes and right arm PICC. Bilateral infiltrates are again demonstrated, unchanged. Impression: Unchanged, over 3 days, findings as above. Chest x-ray - 04/21/20 - Procedure: XRAY Chest 1v Indication: Dyspnea Technique: One view of the chest Comparison: 04/18/2020 Findings: Stable tube and line positions. Bilateral infiltrates are unchanged Impression: Unchanged, over one day, findings as above. Microbiology Date/Time Source Procedure Growth Status 04/14/20 16:35 Stool Clostridium difficile Toxin Assay - Final Complete 04/12/20 08:40 Urine,Clean Catch Urine Culture - Final Cynthia Parapsilosis Complete 04/12/20 08:40 Sputum Gram Stain - Final Complete 04/12/20 08:40 Sputum Sputum Culture - Final NORMAL UPPER RESPIRATORY WILIAM AT 48 ... Complete 04/11/20 18:55 Blood Blood Culture - Final NO GROWTH AFTER 5 DAYS Complete Laboratory Tests Test 04/23/20 11:06 White Blood Count 5.3 K/UL (4.8-10.8) Red Blood Count 3.15 M/UL (4.70-6.10) L Hemoglobin 8.9 G/DL (14.2-18.0) L Hematocrit 28.7 % (42.0-52.0) L Mean Corpuscular Volume 91 FL (80-99) Mean Corpuscular Hemoglobin 28.1 PG (27.0-31.0) Mean Corpuscular Hemoglobin Concent 30.8 G/DL (32.0-36.0) L Red Cell Distribution Width 17.6 % (11.6-14.8) H Platelet Count 290 K/UL (150-450) Mean Platelet Volume 6.2 FL (6.5-10.1) L Neutrophils (%) (Auto) 81.1 % (45.0-75.0) H Lymphocytes (%) (Auto) 11.6 % (20.0-45.0) L Monocytes (%) (Auto) 5.4 % (1.0-10.0) Eosinophils (%) (Auto) 0.4 % (0.0-3.0) Basophils (%) (Auto) 1.5 % (0.0-2.0) Sodium Level 141 MMOL/L (136-145) Potassium Level 4.1 MMOL/L (3.5-5.1) Chloride Level 104 MMOL/L (98-107) Carbon Dioxide Level 34 MMOL/L (21-32) H Anion Gap 3 mmol/L (5-15) L Blood Urea Nitrogen 15 mg/dL (7-18) Creatinine 0.3 MG/DL (0.55-1.30) L Estimat Glomerular Filtration Rate > 60 mL/min (>60) Glucose Level 119 MG/DL (74-106) H Calcium Level 8.5 MG/DL (8.5-10.1) Current Medications Medications (Trade) Dose Ordered Sig/Dennis Route PRN Reason Start Time Stop Time Status Last Admin Dose Admin Acetaminophen (Tylenol) 650 mg Q4H PRN ORAL Temp >100.5 04/13/20 00:30 05/13/20 00:29 04/13/20 01:30 Bisacodyl (Dulcolax) 10 mg Q12H PRN RECTAL Constipation 03/18/20 16:45 06/16/20 16:44 Chlorhexidine Gluconate (Marlen-Hex 2%) 1 applic DAILY@2000 TOPIC 03/30/20 20:00 06/28/20 19:59 04/22/20 19:31 Dextrose (Dextrose 50%) 25 ml Q30M PRN IV Hypoglycemia 03/29/20 20:45 06/27/20 20:44 Dextrose (Dextrose 50%) 50 ml Q30M PRN IV Hypoglycemia 03/29/20 20:45 06/27/20 20:44 Enoxaparin Sodium (Lovenox) 80 mg EVERY 12 HOURS SUBQ 04/06/20 21:00 07/05/20 20:59 04/23/20 09:06 Fentanyl Citrate 250 ml @ 1 mls/hr Q24H IV 04/23/20 13:00 04/25/20 12:59 04/23/20 14:02 Furosemide (Lasix) 20 mg DAILY IV 04/22/20 12:45 05/22/20 12:44 04/23/20 09:05 Hydralazine HCl (Apresoline) 10 mg Q4H PRN IV For High Blood Pressure 03/30/20 12:15 06/28/20 12:14 04/21/20 05:20 Insulin Aspart (NovoLOG) Q6HR SUBQ 03/30/20 00:00 06/28/20 00:00 04/20/20 23:34 Labetalol HCl (Normodyne) 10 mg Q4H PRN IV sbp greater tahtn 160 03/28/20 17:30 04/27/20 17:29 04/21/20 06:02 Lansoprazole (Prevacid) 15 mg Q12HR GT 04/20/20 21:00 05/20/20 20:59 04/23/20 09:05 Methylprednisolone Sodium Succinate (Solu-MEDROL) 20 mg Q12HR IVP 04/12/20 21:00 06/20/20 20:59 04/23/20 09:05 Metoclopramide HCl (Reglan) 10 mg Q6H IVP 03/30/20 15:00 04/29/20 14:59 04/23/20 14:02 Midazolam HCl 200 ml @ 0 mls/hr Q24H PRN IV Agitation 04/17/20 22:30 04/24/20 22:29 04/23/20 18:44 Morphine Sulfate (Morphine Sulfate) 4 mg Q6H PRN IVP agitation despite sedating med 04/21/20 12:45 04/28/20 12:44 04/23/20 04:28 Kisha Salazar MD Apr 23, 2020 19:17
--- NOTE | 2020-04-23 19:20 | NUR ---
NURSE HAND-OFF REPORT: Latest Vital Signs: Temperature 98.2 , Pulse 84 , B/P 168 /86 , Respiratory Rate 18 , O2 SAT 99 , Mechanical Ventilator, FiO2 70%. Vital Sign Comment: EKG Rhythm: Sinus Rhythm Rhythm change?: N MD Notified?: MD Response: Latest Hassan Fall Score: 50 Fall Risk: High Risk Safety Measures: Call light Within Reach, Bed Alarm Zone 3, Side Rails Side Rails x3, Bed position Low and Locked. Fall Precautions: Yellow Socks Yellow Gown Door Sign Patient Fall Education Report given to Dayanna Lora RN for continuity of care. Pt stable. .
--- NOTE | 2020-04-23 19:21 | NUR ---
NURSE NOTES: received pt from Corry Del Valle RN., pt is is resting on the bed, Sedated Rass-2 at this time. pt is orally intubated ETt size 8 lip line at 26cm, AC 18 TV 750 Fio2 70% peep of 5, and O2sat is at 98%. no s/s of SOB at this time. pt has OGT that glucerna1.5 is running at 50ml/hr, no residual noted at this time. rectal tube is in place, no leakage noted. BM color is brown. joseph cath is noted, draining well with gravity, no s/s of bleeding at this time. no skin issue noted. left arm skin tear noted. right upper arm PICC line noted, dressing site intact, clean, and patent. Fetanyl is funning at 300mcg/hr versed is running at 15mg/hr. call light within reach. will continue to monitor pt with plan of care. bed at the lowest position, alarmed, and locked.
--- NOTE | 2020-04-23 19:30 | NUR ---
NURSE NOTES: Received pt with eyes close but respond to pain stimuli, trache to vent on ac mode, NPO , NGT clamped , for PEG tommorow. SB-SR on the monito, bp stable afebrile. Pt with 2-3+ edema to extremities traci with pts Rt Arm 3-4+ edema elevated with pllow. . RT soft wrist resytraints maintained for safety to avoid pulling out therapeutic devices. Brownlee to gravity with moderate ant of jeff yellow urine. Monitor I and O. monitor lytes. rectal tube to gravity with brownish watery soft stool minimal in amt., not leaking. Will continue to monitor.
[2020-04-23] MEDS: Dyna-Hex 2% Top Sol 2oz TOPIC SCH (20:24)
[2020-04-23] MEDS: Bactrim-DS 1 tab ORAL SCH (20:32)
--- NOTE | 2020-04-23 20:45 | NUR ---
NURSE NOTES: increased versed to reach RASS-2, pt is now at RASS-1. will closely monitor pt.
--- NOTE | 2020-04-23 22:00 | NUR ---
NURSE NOTES: repositioned pt, oral care given. oral suctioned. RASS-2 at this time. call light within reach.
[2020-04-24] VITALS (46 sets, daily range): BP systolic 102–188; BP diastolic 56–93
--- NOTE | 2020-04-24 | NUR ---
NURSE NOTES: repositioned pt, all the drips are running as ordered. call light within reach. no SOB at this time. no bleeding noted at this time.
[2020-04-24] MEDS: Versed 100mg/NS 200ml 200 ML IV PRN ×4 (01:15→18:37)
[2020-04-24] MEDS: Morphine Sulfate 4mg/ml Inj IVP PRN (01:44)
--- NOTE | 2020-04-24 02:00 | NUR ---
NURSE NOTES: cleaned pt, oral suctioned. provided new gown, new blanket. Optifoam applied, dressing changed. no leakage noted in rectal tube. no bleeding noted at this time. call light within reach,
[2020-04-24] MEDS: Metoclopramide 10mg/2ml Inj IVP SCH ×4 (02:24→21:19)
--- NOTE | 2020-04-24 04:00 | NUR ---
NURSE NOTES: oral care given. repositioned. call light within reach. RASS -2 at this time.
[2020-04-24] MEDS: NovoLOG Insulin Flexpen SUBQ SCH ×5 (06:00→23:53)
--- NOTE | 2020-04-24 06:00 | NUR ---
NURSE NOTES: decreased Versed deviated per protocol due to low HR 50s. Dr. Ferreira made aware.
[2020-04-24 06:28] LABS: BASOPHILS % (AUTO) 0.4 % (0.0-2.0); EOSINOPHILS % (AUTO) 0.1 % (0.0-3.0); HEMATOCRIT 28.3 % (42.0-52.0); HEMOGLOBIN 8.9 G/DL (14.2-18.0); LYMPHOCYTES % (AUTO) 15.3 % (20.0-45.0); MEAN CORPUSCULAR VOLUME 91 FL (80-99); MONOCYTES % (AUTO) 5.5 % (1.0-10.0); NEUTROPHILS % (AUTO) 78.7 % (45.0-75.0); PLATELET COUNT 278 K/UL (150-450); RED BLOOD COUNT 3.11 M/UL (4.70-6.10); RED CELL DISTRIBUTION WIDTH 17.4 % (11.6-14.8); WHITE BLOOD COUNT 4.7 K/UL (4.8-10.8)
--- NOTE | 2020-04-24 06:30 | NUR ---
NURSE NOTES: Held versed due to pt's low HR 51-[address] stern made aware.
--- NOTE | 2020-04-24 06:39 | General Progress Note ---
Subjective ROS Limited/Unobtainable: No Allergies: Coded Allergies: No Known Allergies (Unverified , 02/05/20) Objective Last 24 Hour Vital Signs Date Time Temp Pulse Resp B/P (MAP) Pulse Ox O2 Delivery O2 Flow Rate FiO2 04/24/20 06:15 51 18 118/65 (82) 100 04/24/20 06:00 51 18 116/62 (80) 100 04/24/20 05:00 18 104/59 Mechanical Ventilator 65 04/24/20 05:00 18 104/59 Mechanical Ventilator 65 04/24/20 05:00 54 18 104/59 (74) 100 04/24/20 04:00 65 04/24/20 04:00 Mechanical Ventilator 04/24/20 04:00 18 105/59 Mechanical Ventilator 65 04/24/20 04:00 18 105/59 Mechanical Ventilator 65 04/24/20 04:00 98.2 59 18 102/61 (75) 100 04/24/20 03:18 63 18 65 04/24/20 03:11 63 04/24/20 03:00 18 106/58 Mechanical Ventilator 65 04/24/20 03:00 18 106/58 Mechanical Ventilator 65 04/24/20 03:00 70 18 111/61 (78) 98 04/24/20 02:00 89 20 175/86 (115) 94 04/24/20 02:00 20 150/70 Mechanical Ventilator 65 04/24/20 02:00 20 150/70 Mechanical Ventilator 65 04/24/20 01:45 100 23 188/83 (118) 95 04/24/20 01:30 95 20 182/90 (120) 96 04/24/20 01:15 92 22 182/93 (122) 95 04/24/20 01:15 18 159/76 65 04/24/20 01:12 103 25 65 04/24/20 01:00 22 182/93 Mechanical Ventilator 65 04/24/20 01:00 22 182/93 Mechanical Ventilator 65 04/24/20 01:00 95 18 159/76 (103) 96 04/24/20 00:45 22 159/76 Mechanical Ventilator 65 04/24/20 00:30 23 200/105 Mechanical Ventilator 65 04/24/20 00:15 20 179/99 Mechanical Ventilator 65 04/24/20 00:00 18 160/94 Mechanical Ventilator 65 04/24/20 00:00 18 160/94 Mechanical Ventilator 65 04/24/20 00:00 98.6 78 19 161/87 (111) 97 04/24/20 00:00 Mechanical Ventilator 04/23/20 23:45 74 18 140/70 (93) 93 04/23/20 23:30 76 17 138/66 (90) 95 04/23/20 23:15 77 19 147/78 (101) 97 04/23/20 23:07 65 04/23/20 23:01 76 18 65 04/23/20 23:01 70 04/23/20 23:00 18 147/78 Mechanical Ventilator 65 04/23/20 23:00 18 147/78 Mechanical Ventilator 65 04/23/20 23:00 65 18 141/68 (92) 99 04/23/20 22:30 18 130/68 Mechanical Ventilator 70 04/23/20 22:25 18 130/68 Mechanical Ventilator 70 04/23/20 22:00 18 131/67 Mechanical Ventilator 70 04/23/20 22:00 18 131/67 Mechanical Ventilator 70 04/23/20 22:00 66 18 133/70 (91) 97 04/23/20 21:45 70 18 127/64 (85) 98 04/23/20 21:30 71 17 126/69 (88) 97 04/23/20 21:15 79 18 137/62 (87) 97 04/23/20 21:00 76 18 70 04/23/20 21:00 18 137/74 Mechanical Ventilator 70 04/23/20 21:00 18 137/74 Mechanical Ventilator 70 04/23/20 21:00 72 18 137/74 (95) 97 04/23/20 20:45 18 133/70 Mechanical Ventilator 70 04/23/20 20:00 70 04/23/20 20:00 98.4 77 17 145/61 (89) 96 04/23/20 20:00 17 145/61 Mechanical Ventilator 70 04/23/20 20:00 17 145/61 Mechanical Ventilator 70 04/23/20 20:00 Mechanical Ventilator 04/23/20 19:25 93 04/23/20 19:15 90 20 70 04/23/20 19:00 84 15 168/86 (113) 99 04/23/20 19:00 18 168/86 Mechanical Ventilator 70 04/23/20 19:00 18 168/86 Mechanical Ventilator 70 04/23/20 18:44 18 161/79 Mechanical Ventilator 70 04/23/20 18:00 18 158/78 Mechanical Ventilator 70 04/23/20 18:00 18 158/78 Mechanical Ventilator 70 04/23/20 18:00 66 19 142/80 (100) 99 04/23/20 17:00 18 124/63 Mechanical Ventilator 70 04/23/20 17:00 18 124/63 Mechanical Ventilator 70 04/23/20 17:00 62 18 124/63 (83) 100 04/23/20 16:00 Mechanical Ventilator 04/23/20 16:00 18 107/56 Mechanical Ventilator 70 04/23/20 16:00 18 107/56 Mechanical Ventilator 70 04/23/20 16:00 98.2 64 18 107/58 (74) 99 04/23/20 15:59 64 04/23/20 15:30 70 04/23/20 15:23 64 18 70 04/23/20 15:00 82 19 138/65 (89) 99 04/23/20 15:00 18 136/65 Mechanical Ventilator 70 04/23/20 15:00 18 136/65 Mechanical Ventilator 70 04/23/20 14:02 18 144/67 Mechanical Ventilator 75 04/23/20 14:00 18 134/63 Mechanical Ventilator 75 04/23/20 14:00 71 16 144/67 (92) 100 04/23/20 13:00 17 149/85 Mechanical Ventilator 75 04/23/20 13:00 18 149/85 Mechanical Ventilator 75 04/23/20 13:00 68 19 154/70 (98) 100 04/23/20 12:00 97.9 60 17 126/63 (84) 100 04/23/20 12:00 75 04/23/20 12:00 17 126/65 Mechanical Ventilator 75 04/23/20 12:00 17 126/65 Mechanical Ventilator 75 04/23/20 12:00 Mechanical Ventilator 04/23/20 11:23 63 04/23/20 11:13 18 104/57 Mechanical Ventilator 75 04/23/20 11:12 60 19 75 04/23/20 11:00 18 127/67 Mechanical Ventilator 75 04/23/20 11:00 18 127/67 Mechanical Ventilator 75 04/23/20 11:00 61 18 104/57 (73) 98 04/23/20 10:23 75 2/21/21 10:00 75 04/23/20 10:00 74 18 145/82 (103) 100 04/23/20 10:00 18 131/67 Mechanical Ventilator 75 04/23/20 10:00 18 131/67 Mechanical Ventilator 75 04/23/20 09:00 17 149/74 Mechanical Ventilator 80 04/23/20 09:00 17 149/74 Mechanical Ventilator 80 04/23/20 09:00 67 19 143/77 (99) 100 04/23/20 08:30 18 127/74 Mechanical Ventilator 80 04/23/20 08:15 18 131/59 Mechanical Ventilator 80 04/23/20 08:11 56 04/23/20 08:00 80 04/23/20 08:00 18 131/66 Mechanical Ventilator 80 04/23/20 08:00 18 131/66 Mechanical Ventilator 80 04/23/20 08:00 97.8 57 18 121/64 (83) 100 04/23/20 08:00 Mechanical Ventilator 04/23/20 07:54 56 18 80 04/23/20 07:45 18 121/64 Mechanical Ventilator 80 04/23/20 07:30 18 109/53 Mechanical Ventilator 80 04/23/20 07:00 18 113/56 Mechanical Ventilator 80 04/23/20 07:00 18 113/56 Mechanical Ventilator 80 04/23/20 07:00 60 18 113/56 (75) 100 Intake and Output 04/23/20 04/24/20 19:00 07:00 Intake Total 1388.0 ml 1301.0 ml Output Total 1820 ml 1070 ml Balance -432.0 ml 231.0 ml Free Water 60 ml 40 ml IV Total 728.0 ml 711.0 ml Tube Feeding 600 ml 550 ml Output Urine Total 1800 ml 1070 ml Stool Total 20 ml Laboratory Tests 04/23/20 11:06: White Blood Count 5.3, Red Blood Count 3.15L, Hemoglobin 8.9L, Hematocrit 28.7L, Mean Corpuscular Volume 91, Mean Corpuscular Hemoglobin 28.1, Mean Corpuscular Hemoglobin Concent 30.8L, Red Cell Distribution Width 17.6H, Platelet Count 290, Mean Platelet Volume 6.2L, Neutrophils (%) (Auto) 81.1H, Lymphocytes (%) (Auto) 11.6L, Monocytes (%) (Auto) 5.4, Eosinophils (%) (Auto) 0.4, Basophils (%) (Auto) 1.5, Sodium Level 141, Potassium Level 4.1, Chloride Level 104, Carbon Di oxide Level 34H, Anion Gap 3L, Blood Urea Nitrogen 15, Creatinine 0.3L, Estimat Glomerular Filtration Rate > 60, Glucose Level 119H, Calcium Level 8.5 04/24/20 05:43: White Blood Count [Pending], Red Blood Count [Pending], Hemoglobin [Pending], Hematocrit [Pending], Mean Corpuscular Volume [Pending], Mean Corpuscular Hemoglobin [Pending], Mean Corpuscular Hemoglobin Concent [Pending], Red Cell Distribution Width [Pending], Platelet Count [Pending], Mean Platelet Volume [Pending], Neutrophils (%) (Auto) [Pending], Lymphocytes (%) (Auto) [Pending], Monocytes (%) (Auto) [Pending], Eosinophils (%) (Auto) [Pending], Basophils (%) (Auto) [Pending], Sodium Level [Pending], Potassium Level [Pending], Chloride Level [Pending], Carbon Dioxide Level [Pending], Blood Urea Nitrogen [Pending], Creatinine [Pending], Estimat Glomerular Filtration Rate [Pending], Glucose Level [Pending], Calcium Level [Pending], Phosphorus Level [Pending], Magnesium Level [Pending], Total Bilirubin [Pending], Aspartate Amino Transf (AST/SGOT) [Pending], Alanine Aminotransferase (ALT/SGPT) [Pending], Alkaline Phosphatase [Pending], C-Reactive Protein, Quantitative [Pending], Pro-B-Type Natriuretic Peptide [Pending], Total Protein [Pending], Albumin [Pending], Globulin [Pending] Height (Feet): 5 Height (Inches): 10.00 Weight (Pounds): 240 General Appearance: no apparent distress EENT: normal ENT inspection Neck: normal alignment Cardiovascular: normal rate Respiratory/Chest: decreased breath sounds Abdomen: normal bowel sounds, non tender, soft Extremities: non-tender Assessment/Plan Status: not improved, unchanged Assessment/Plan: hep c + but neg RNA OGTF reglan 10 mg repeat labs fu LFTS>>>improving worsening resp status will fu Da Quintero MD Apr 24, 2020 06:39
[2020-04-24] MEDS: fentaNYL 2500mcg/NS 250ml 250 ML IV SCH ×3 (07:00→23:52)
--- NOTE | 2020-04-24 07:10 | NUR ---
NURSE HAND-OFF REPORT: Need to follow up: AM labs, ABG, Xray. Latest Vital Signs: Temperature 98.2 , Pulse 51 , B/P 119 /75 , Respiratory Rate 18 , O2 SAT 100 , Mechanical Ventilator, O2 Flow Rate . Vital Sign Comment: [stable, fahad cardia] EKG Rhythm: Sinus Bradycardia Rhythm change?: N Notified?: N -Dr.Toluie INTERIANO Response: Message left await call Latest Hassan Fall Score: 50 Fall Risk: High Risk Safety Measures: Call light Within Reach, Bed Alarm Zone 3, Side Rails Side Rails x3, Bed position Low and Locked. Fall Precautions: Yellow Socks Yellow Gown Door Sign Patient Fall Education Report given to [Yoana Rodriguez RN.,].
--- NOTE | 2020-04-24 07:15 | NUR ---
RESPIRATORY NOTE: PT received on AC/VC: 18, 750 65%, +5. Alarms are on and audible. Vent circuit is secure and out of the way. Airway is secure and patent. No s/s of respiratory distress noted at this time. Will continue to closely monitor.
[2020-04-24 07:19] LABS: ALANINE AMINOTRANSFERASE 48 U/L (12-78); ALBUMIN 2.1 G/DL (3.4-5.0); ALBUMIN/GLOBULIN RATIO 0.7 (1.0-2.7); ALKALINE PHOSPHATASE 137 U/L (46-116); ANION GAP 2 mmol/L (5-15); ASPARTATE AMINO TRANSFERASE 16 U/L (15-37); BILIRUBIN,TOTAL 0.4 MG/DL (0.2-1.0); BLOOD UREA NITROGEN 16 mg/dL (7-18); CALCIUM 8.4 MG/DL (8.5-10.1); CARBON DIOXIDE 35 MMOL/L (21-32); CHLORIDE 106 MMOL/L (98-107); CREATININE 0.4 MG/DL (0.55-1.30); PHOSPHORUS 3.4 MG/DL (2.5-4.9); POTASSIUM 4.3 MMOL/L (3.5-5.1); SODIUM 143 MMOL/L (136-145)
--- NOTE | 2020-04-24 07:20 | NUR ---
NURSE NOTES: Received pt and report from PRIYANKA Shell. Pt is resting on the bed, Sedated at this time; however notably starting to get agitated, as Versed was held d/t bradycardia. HR currently 78bpm on ekg monitor tech. Pt is orally intubated ETT 8.0, 26cm @ the lip line. Vent settings: AC 18, TV 750, Fio2 65%, peep of 5, and O2sat is at 98%. no s/s of respiratory distress at this time. Pt has OGT, running Glucerna 1.5 at 50ml/hr, no residual noted at this time. rectal tube is in place, no leakage noted. BM color is brown. Brownlee cath is noted, draining well with gravity to urometer. No skin issues noted, optifoam in place for protection. Left arm skin tear noted. Right upper arm PICC line noted, dressing site intact, clean, and patent. Fetanyl is funning at 300mcg/hr, versed currently held but will be resumed d/t to agitation. Call light within reach. bed at the lowest position, alarmed, and locked. Will resume plan of care.
--- NOTE | 2020-04-24 08:19 | Nephrology Progress Note ---
Assessment/Plan Problem List: (1) Dehydration (2) Electrolyte imbalance (3) COVID-19 virus infection (4) Pneumonia (5) DMII (diabetes mellitus, type 2) (6) Protein malnutrition Assessment Azotemia, hypernatremia Hypoalbuminemia Staff Otilia bacteremia COVID-19 isolation, pneumonia, bilateral infiltrate Hypertension Diabetes mellitus History of smoking Plan April 24: Status quo. Full code. Intubated on ventilator. FiO2 65%. Labs reviewed. Renal parameters and electrolytes stable. April 23: Status unchanged. Full code. Intubated on ventilator. FiO2 75%. Labs reviewed. Renal parameters stable. Continue per consultants. April 22: Labs reviewed. Patient remains intubated on ventilator and full code. FiO2 90%. Day 77 hospitalization. Not much to add from renal standpoint of view April 21: No CHEM panel drawn today. FiO2 60%. Patient full code. Continue per consultants. April 20: Labs reviewed. Renal parameters stable. Patient remains full code. Intubated on ventilator with FiO2 currently at 70%. Continue per consultants. April 19: No labs drawn today. Remains full code on FiO2 of 100%. Continue per consultants. April 18: Status quo. Labs reviewed. Renal parameters stable. April 17: Status quo. Intubated on ventilator. Full code. Labs reviewed. Electrolytes and renal parameters stable. Continue per consultants. April 16: Girlfriend in the room. Patient awake. Intubated. Full code. L abs reviewed. Abnormal electrolyte addressed. Continue per consultants. April 15: Labs reviewed. Electrolytes and renal parameters stable. Patient full code. Continues to be intubated on ventilator. April 14: Status quo. Labs reviewed. Remains intubated on ventilator. Full code. Continue per consultants. April 13: Status quo. Labs reviewed. Renal parameters electrolytes stable. Continue per current treatment plan. April 12: On higher FiO2. Will resume Lasix daily. Continue to monitor electrolytes and renal parameters. Per consultants. April 11: FiO2 went up to 85%. Renal parameters and electrolytes reasonably well-maintained. Will monitor serum potassium. Will give IV Lasix. April 10: Status quo. Labs reviewed. Remains intubated on ventilator with FiO2 of 65%. Remains full code. Stable from renal standpoint to view. Repeat vitamin D level on April 08 pending April 09: Status quo. Labs reviewed. Stable from renal standpoint of view. Continue per consultants. April 08: Discussed with RN. Labs reviewed. Clinically improving. Requires lower PEEP. Continue per pulmonary. Continue to monitor renal parameters. April 07: Remains full code and on ventilator. Labs reviewed. Renal parameters and electrolytes stable. Continue per consultants. Blood pressure marginally improved. April 06: Full code. On ventilator. Blood pressure 80-90 systolic. IV Lasix discontinued. Free water through tube feeding ordered. Continue to monitor electrolytes and serum sodium. Down on fentanyl as possible. Discussed with RN Kevin. Clonidine patch discontinued. April 05: Status quo. Remains full code. Remains intubated. Labs reviewed. Renal parameters stable. Serum sodium 150 unchanged. Continue per consultants. April 04: Remains intubated and on ventilator. Remains full code. Labs reviewed. Serum sodium 150 unchanged. Renal parameters stable. Continue per ID and pulmonary. April 03: Intubated. On ventilator. Full code. Labs reviewed. Serum sodium 150 unchanged. Continue to monitor renal parameters. Continue per pulmonary and ID. April 02: Full code. On ventilator. Discussed with RN. Serum sodium slightly higher. Will cut down on IV Lasix. Continue per consultants. Continue to monitor renal parameters and electrolytes. April 01: Full code. Remains on ventilator. Labs reviewed. Stable from renal standpoint of view. Continue per consultants. March 31: Full code . Remains intubated on ventilator. Labs reviewed. Patient appears toxic. Discussed with RN. Maintenance IV discontinued. Medication list reviewed. Blood pressure medication stopped due to low blood pressure. Levemir insulin stopped. Continue monitor blood sugar and sliding scale insulin. March 30: Full code. On ventilator. Labs reviewed. Clonidine patch dose increased. Lasix increased. 3% saline 1 time ordered. Continue to monitor electrolytes and renal parameters. March 29: Remains full code. On mechanical ventilation. On tube feeding. Will DC TPN. Will start on maintenance IV fluid. Continue to monitor renal parameters. March 28: On BiPAP. Full code. On TPN. Labs reviewed. Discussed with pharmacy. Continue as is. Watch serum potassium. March 27: Remains on BiPAP. No chemistry panel done today. Full code. On TPN. Will check lab tomorrow. March 26: Remains on BiPAP. Remains on TPN. Labs reviewed. Electrolytes and chemistries within normal limits. Continue as is. March 25: Remains on TPN. Labs reviewed. Discussed with pharmacy. Change IV Protonix to p.o. Continue 3% saline infusion with Lasix. Patient full code. March 24: Continue to be on TPN. Labs are reviewed. Aim to collect electrolytes. Discussed with pharmacy. Continue current consultants. March 23: Continues to be on TPN. Labs reviewed. Electrolytes and chemistries all acceptable. Discussed with pharmacy. Continue current management. March 22: On TPN. Labs reviewed. Low sodium noted. 3% saline to be continued. Continue to monitor electrolytes. Discussed with pharmacy. March 21: On TPN. Labs reviewed. Continue 3% saline and Lasix for mild hyponatremia. Continue TPN as these. Discussed with pharmacy. March 20: Remains on TPN. Labs reviewed. Serum sodium higher on IV Lasix and 3% saline infusion. Continue TPN as is. Continue to monitor renal parameters and electrolytes. Discussed with Dr. Mata March 19: Remains on TPN. Labs reviewed. Serum sodium 128. Will give 3% saline with IV Lasix. Continue to monitor electrolytes. No change in TPN composition. Discussed with pharmacy. March 18: Remains on TPN. Labs reviewed. Discussed with pharmacist. Will give 3 doses of IV Lasix 20 mg every 8 hours. Continue to monitor serum sodium electrolytes uric acid. White blood cells down. Continue per consultants. March 17: On TPN. Labs reviewed. Discussed with pharmacist. Sodium content increase. Continue to monitor CMP. Patient continues to have leukocytosis. March 16: On TPN. Labs reviewed. Discussed with pharmacist. Appropriate changes made. Continue to monitor electrolytes. March 15: Remains on TPN. Labs reviewed. Discussed with pharmacist. Continue per current management. March 14: Remains on TPN. Labs reviewed, stable. Vitamin D level low, replacement ordered. Continue to monitor electrolytes and renal parameters. March 13: Patient remains on TPN. Discussed with pharmacist. TPN's sodium content adjusted. Labs reviewed. Continue to monitor electrolytes. Blood pressure remains stable. Continue per consultants. March 12: Patient on TPN. Labs reviewed. CPK remains elevated. Abnormal electrolytes and high blood sugar discussed with pharmacist and TPN adjusted. Continue to monitor labs. Oral Protonix added. Ibuprofen discontinued. Can continue to monitor electrolytes and chemistries. Levemir for high blood sugar added. March 11: Patient on TPN. Labs as of 11:15 AM is still pending. Continue per current treatment plan. Will check labs and adjust TPN as needed. Continue per consultants. March 10: Patient on TPN. Labs reviewed. Electrolytes overall stable. CPK is elevated. Will monitor electrolyte, CPK level, lipid panel. Continue per consultants. Discussed with pharmacist. Discussed with RN. Nutritional evaluation noted. Previously: D5W 100 cc an hour Monitor electrolytes renal parameters TPN and Intralipid ordered Will follow Continue per consultants Dietary consult requested Subjective ROS Limited/Unobtainable: Yes Objective Objective Last 24 Hour Vital Signs Date Time Temp Pulse Resp B/P (MAP) Pulse Ox O2 Delivery O2 Flow Rate FiO2 04/24/20 08:00 Mechanical Ventilator 04/24/20 08:00 20 167/92 Mechanical Ventilator 65 04/24/20 08:00 20 167/92 Mechanical Ventilator 65 04/24/20 08:00 65 04/24/20 08:00 97.9 82 17 167/92 (117) 98 04/24/20 07:45 73 16 159/78 (105) 98 04/24/20 07:30 73 16 181/88 (119) 100 04/24/20 07:30 20 114/68 Mechanical Ventilator 65 04/24/20 07:15 53 18 114/59 (77) 100 04/24/20 07:00 52 18 113/62 (79) 100 04/24/20 07:00 18 119/75 Mechanical Ventilator 65 04/24/20 06:45 50 18 119/64 (82) 100 04/24/20 06:30 23 118/69 Mechanical Ventilator 65 04/24/20 06:30 52 18 114/64 (81) 100 04/24/20 06:15 51 18 118/65 (82) 100 04/24/20 06:00 51 18 116/62 (80) 100 04/24/20 06:00 25 123/70 Mechanical Ventilator 65 04/24/20 06:00 25 123/70 Mechanical Ventilator 65 04/24/20 05:00 18 104/59 Mechanical Ventilator 65 04/24/20 05:00 18 104/59 Mechanical Ventilator 65 04/24/20 05:00 54 18 104/59 (74) 100 04/24/20 04:00 65 04/24/20 04:00 Mechanical Ventilator 04/24/20 04:00 18 105/59 Mechanical Ventilator 65 04/24/20 04:00 18 105/59 Mechanical Ventilator 65 04/24/20 04:00 98.2 59 18 102/61 (75) 100 04/24/20 03:18 63 18 65 04/24/20 03:11 63 04/24/20 03:00 18 106/58 Mechanical Ventilator 65 04/24/20 03:00 18 106/58 Mechanical Ventilator 65 04/24/20 03:00 70 18 111/61 (78) 98 04/24/20 02:00 89 20 150/70 (96) 94 04/24/20 02:00 20 150/70 Mechanical Ventilator 65 04/24/20 02:00 20 150/70 Mechanical Ventilator 65 04/24/20 01:45 100 23 188/83 (118) 95 04/24/20 01:30 95 20 182/90 (120) 96 04/24/20 01:15 92 22 159/76 (103) 95 04/24/20 01:15 18 159/76 65 04/24/20 01:12 103 25 65 04/24/20 01:00 22 182/93 Mechanical Ventilator 65 04/24/20 01:00 22 182/93 Mechanical Ventilator 65 04/24/20 01:00 95 18 159/76 (103) 96 04/24/20 00:45 22 159/76 Mechanical Ventilator 65 04/24/20 00:30 23 200/105 Mechanical Ventilator 65 04/24/20 00:15 20 179/99 Mechanical Ventilator 65 04/24/20 00:00 18 160/94 Mechanical Ventilator 65 04/24/20 00:00 18 160/94 Mechanical Ventilator 65 04/24/20 00:00 98.6 78 19 161/87 (111) 97 04/24/20 00:00 Mechanical Ventilator 04/23/20 23:45 74 18 140/70 (93) 93 04/23/20 23:30 76 17 138/66 (90) 95 04/23/20 23:15 77 19 147/78 (101) 97 04/23/20 23:07 65 04/23/20 23:01 76 18 65 04/23/20 23:01 70 04/23/20 23:00 18 147/78 Mechanical Ventilator 65 04/23/20 23:00 18 147/78 Mechanical Ventilator 65 04/23/20 23:00 65 18 141/68 (92) 99 04/23/20 22:30 18 130/68 Mechanical Ventilator 70 04/23/20 22:25 18 130/68 Mechanical Ventilator 70 04/23/20 22:00 18 131/67 Mechanical Ventilator 70 04/23/20 22:00 18 131/67 Mechanical Ventilator 70 04/23/20 22:00 66 18 133/70 (91) 97 04/23/20 21:45 70 18 127/64 (85) 98 04/23/20 21:30 71 17 126/69 (88) 97 04/23/20 21:15 79 18 137/62 (87) 97 04/23/20 21:00 76 18 70 04/23/20 21:00 18 137/74 Mechanical Ventilator 70 04/23/20 21:00 18 137/74 Mechanical Ventilator 70 04/23/20 21:00 72 18 137/74 (95) 97 04/23/20 20:45 18 133/70 Mechanical Ventilator 70 04/23/20 20:00 70 04/23/20 20:00 98.4 77 17 145/61 (89) 96 04/23/20 20:00 17 145/61 Mechanical Ventilator 70 04/23/20 20:00 17 145/61 Mechanical Ventilator 70 04/23/20 20:00 Mechanical Ventilator 04/23/20 19:25 93 04/23/20 19:15 90 20 70 04/23/20 19:00 84 15 168/86 (113) 99 04/23/20 19:00 18 168/86 Mechanical Ventilator 70 04/23/20 19:00 18 168/86 Mechanical Ventilator 70 04/23/20 18:44 18 161/79 Mechanical Ventilator 70 04/23/20 18:00 18 158/78 Mechanical Ventilator 70 04/23/20 18:00 18 158/78 Mechanical Ventilator 70 04/23/20 18:00 66 19 142/80 (100) 99 04/23/20 17:00 18 124/63 Mechanical Ventilator 70 04/23/20 17:00 18 124/63 Mechanical Ventilator 70 04/23/20 17:00 62 18 124/63 (83) 100 04/23/20 16:00 Mechanical Ventilator 04/23/20 16:00 18 107/56 Mechanical Ventilator 70 04/23/20 16:00 18 107/56 Mechanical Ventilator 70 04/23/20 16:00 98.2 64 18 107/58 (74) 99 04/23/20 15:59 64 04/23/20 15:30 70 04/23/20 15:23 64 18 70 04/23/20 15:00 82 19 138/65 (89) 99 04/23/20 15:00 18 136/65 Mechanical Ventilator 70 04/23/20 15:00 18 136/65 Mechanical Ventilator 70 04/23/20 14:02 18 144/67 Mechanical Ventilator 75 04/23/20 14:00 18 134/63 Mechanical Ventilator 75 04/23/20 14:00 71 16 144/67 (92) 100 04/23/20 13:00 17 149/85 Mechanical Ventilator 75 04/23/20 13:00 18 149/85 Mechanical Ventilator 75 04/23/20 13:00 68 19 154/70 (98) 100 04/23/20 12:00 97.9 60 17 126/63 (84) 100 04/23/20 12:00 75 04/23/20 12:00 17 126/65 Mechanical Ventilator 75 04/23/20 12:00 17 126/65 Mechanical Ventilator 75 04/23/20 12:00 Mechanical Ventilator 04/23/20 11:23 63 04/23/20 11:13 18 104/57 Mechanical Ventilator 75 04/23/20 11:12 60 19 75 04/23/20 11:00 18 127/67 Mechanical Ventilator 75 04/23/20 11:00 18 127/67 Mechanical Ventilator 75 04/23/20 11:00 61 18 104/57 (73) 98 04/23/20 10:23 75 04/23/20 10:00 75 04/23/20 10:00 74 18 145/82 (103) 100 04/23/20 10:00 18 131/67 Mechanical Ventilator 75 04/23/20 10:00 18 131/67 Mechanical Ventilator 75 04/23/20 09:00 17 149/74 Mechanical Ventilator 80 04/23/20 09:00 17 149/74 Mechanical Ventilator 80 04/23/20 09:00 67 19 143/77 (99) 100 04/23/20 08:30 18 127/74 Mechanical Ventilator 80 Intake and Output 04/23/20 04/24/20 19:00 07:00 Intake Total 1388.0 ml 1361.0 ml Output Total 1820 ml 1190 ml Balance -432.0 ml 171.0 ml Free Water 60 ml 40 ml IV Total 728.0 ml 721.0 ml Tube Feeding 600 ml 600 ml Output Urine Total 1800 ml 1170 ml Stool Total 20 ml 20 ml Current Medications Medications (Trade) Dose Ordered Sig/Dennis Route PRN Reason Start Time Stop Time Status Last Admin Dose Admin Acetaminophen (Tylenol) 650 mg Q4H PRN ORAL Temp >100.5 04/13/20 00:30 05/13/20 00:29 04/13/20 01:30 Bisacodyl (Dulcolax) 10 mg Q12H PRN RECTAL Constipation 03/18/20 16:45 06/16/20 16:44 Chlorhexidine Gluconate (Marlen-Hex 2%) 1 applic DAILY@2000 TOPIC 03/30/20 20:00 06/28/20 19:59 04/23/20 20:24 Dextrose (Dextrose 50%) 25 ml Q30M PRN IV Hypoglycemia 03/29/20 20:45 06/27/20 20:44 Dextrose (Dextrose 50%) 50 ml Q30M PRN IV Hypoglycemia 03/29/20 20:45 06/27/20 20:44 Enoxaparin Sodium (Lovenox) 80 mg EVERY 12 HOURS SUBQ 04/06/20 21:00 07/05/20 20:59 04/23/20 21:13 Fentanyl Citrate 250 ml @ 1 mls/hr Q24H IV 04/23/20 13:00 04/25/20 12:59 04/24/20 07:00 Furosemide (Lasix) 20 mg DAILY IV 04/22/20 12:45 05/22/20 12:44 04/23/20 09:05 Hydralazine HCl (Apresoline) 10 mg Q4H PRN IV For High Blood Pressure 03/30/20 12:15 06/28/20 12:14 04/21/20 05:20 Insulin Aspart (NovoLOG) Q6HR SUBQ 03/30/20 00:00 06/28/20 00:00 04/20/20 23:34 Labetalol HCl (Normodyne) 10 mg Q4H PRN IV sbp greater tahtn 160 03/28/20 17:30 04/27/20 17:29 04/21/20 06:02 Lansoprazole (Prevacid) 15 mg Q12HR GT 04/20/20 21:00 05/20/20 20:59 04/23/20 20:24 Methylprednisolone Sodium Succinate (Solu-MEDROL) 20 mg Q12HR IVP 04/12/20 21:00 06/20/20 20:59 04/23/20 20:24 Metoclopramide HCl (Reglan) 10 mg Q6H IVP 03/30/20 15:00 04/29/20 14:59 04/24/20 02:24 Midazolam HCl 200 ml @ 0 mls/hr Q24H PRN IV Agitation 04/17/20 22:30 04/24/20 22:29 04/24/20 07:30 Morphine Sulfate (Morphine Sulfate) 4 mg Q6H PRN IVP agitation despite sedating med 04/21/20 12:45 04/28/20 12:44 04/24/20 01:44 Trimethoprim/ Sulfamethoxazole (Bactrim-DS) 1 tab DAILY ORAL 04/23/20 20:00 05/23/20 19:59 04/23/20 20:32 Laboratory Tests 04/23/20 11:06: White Blood Count 5.3, Red Blood Count 3.15L, Hemoglobin 8.9L, Hematocrit 28.7L, Mean Corpuscular Volume 91, Mean Corpuscular Hemoglobin 28.1, Mean Corpuscular Hemoglobin Concent 30.8L, Red Cell Distribution Width 17.6H, Platelet Count 290, Mean Platelet Volume 6.2L, Neutrophils (%) (Auto) 81.1H, Lymphocytes (%) (Auto) 11.6L, Monocytes (%) (Auto) 5.4, Eosinophils (%) (Auto) 0.4, Basophils (%) (Auto) 1.5, Sodium Level 141, Potassium Level 4.1, Chloride Level 104, Carbon Dioxide Level 34H, Anion Gap 3L, Blood Urea Nitrogen 15, Creatinine 0.3L, Estimat Glomerular Filtration Rate > 60, Glucose Level 119H, Calcium Level 8.5 04/24/20 05:43: White Blood Count 4.7L, Red Blood Count 3.11L, Hemoglobin 8.9L, Hematocrit 28.3L , Mean Corpuscular Volume 91, Mean Corpuscular Hemoglobin 28.6, Mean Corpuscular Hemoglobin Concent 31.3L, Red Cell Distribution Width 17.4H, Platelet Count 278, Mean Platelet Volume 6.2L, Neutrophils (%) (Auto) 78.7H, Lymphocytes (%) (Auto) 15.3L, Monocytes (%) (Auto) 5.5, Eosinophils (%) (Auto) 0.1, Basophils (%) (Auto) 0.4, Sodium Level 143, Potassium Level 4.3, Chloride Level 106, Carbon Dioxide Level 35H, Anion Gap 2L, Blood Urea Nitrogen 16, Creatinine 0.4L, Estimat Glomerular Filtration Rate > 60, Glucose Level 103, Calcium Level 8.4L, Phosphorus Level 3.4, Magnesium Level 2.2, Total Bilirubin 0.4, Aspartate Amino Transf (AST/SGOT) 16, Alanine Aminotransferase (ALT/SGPT) 48, Alkaline Phosphatase 137H, C-Reactive Protein, Quantitative < 0.4, Pro-B-Type Natriuretic Peptide 939H, Total Protein 5.2L, Albumin 2.1L, Globulin 3.1, Albumin/Globulin Ratio 0.7L Height (Feet): 5 Height (Inches): 10.00 Weight (Pounds): 240 General Appearance: no apparent distress EENT: other - Intubated on ventilator Cardiovascular: normal rate Respiratory/Chest: decreased breath sounds Abdomen: distended Rubin Cooper MD Apr 24, 2020 08:19
--- NOTE | 2020-04-24 08:20 | NUR ---
RESPIRATORY NOTE: FiO2 titrated per MD order to decrease 5% FiO2 Q8hr. PT tolerating well. Yoana MATHEW aware. Addendum: 04/24/20 at 0932 by QUINN NEGRON RT RESPIRATORY NOTE: FiO2 titrated from 65% to 60% per MD order to decrease 5% FiO2 Q8hr. PT tolerating well. Yoana MATHEW aware.
--- NOTE | 2020-04-24 08:30 | NUR ---
NURSE NOTES: Dr Cooper on the unit making his rounds. Updated him on pt's current condition. No new orders given
[2020-04-24] MEDS: Lansoprazole 15mg cap GT SCH ×2 (09:05→21:19)
[2020-04-24] MEDS: Bactrim-DS 1 tab ORAL SCH (09:06)
[2020-04-24] MEDS: Solu-MEDROL 40mg Inj IVP SCH ×2 (09:06→21:19)
[2020-04-24] MEDS: Enoxaparin 80mg Inj SUBQ SCH ×2 (09:08→21:20)
--- NOTE | 2020-04-24 10:10 | Pulmonology Progress Note ---
Subjective ROS Limited/Unobtainable: Yes Interval Events: Intubated 03/28/20 Constitutional: Reports: other - on vent, bp stable, fio2-down to 70%; Denies: fever HEENT: Repors: no symptoms Respiratory: Reports: dry cough, shortness of breath Cardiovascular: Reports: no symptoms Gastrointestinal/Abdominal: Denies: nausea, vomiting, diarrhea Psychiatric: Reports: other - NA Skin: Denies: rash Musculoskeletal: Reports: other - NA Allergies: Coded Allergies: No Known Allergies (Unverified , 02/05/20) Objective Last 24 Hour Vital Signs Date Time Temp Pulse Resp B/P (MAP) Pulse Ox O2 Delivery O2 Flow Rate FiO2 04/24/20 09:00 71 17 126/60 (82) 95 04/24/20 08:30 74 18 153/74 (100) 96 04/24/20 08:20 82 19 60 04/24/20 08:00 Mechanical Ventilator 04/24/20 08:00 20 167/92 Mechanical Ventilator 65 04/24/20 08:00 20 167/92 Mechanical Ventilator 65 04/24/20 08:00 65 04/24/20 08:00 97.9 82 17 167/92 (117) 98 04/24/20 07:45 73 16 159/78 (105) 98 04/24/20 07:30 73 16 181/88 (119) 100 04/24/20 07:30 20 114/68 Mechanical Ventilator 65 04/24/20 07:15 82 18 65 04/24/20 07:15 53 18 114/59 (77) 100 04/24/20 07:00 52 18 113/62 (79) 100 04/24/20 07:00 18 119/75 Mechanical Ventilator 65 04/24/20 06:45 50 18 119/64 (82) 100 04/24/20 06:30 23 118/69 Mechanical Ventilator 65 04/24/20 06:30 52 18 114/64 (81) 100 04/24/20 06:15 51 18 118/65 (82) 100 04/24/20 06:00 51 18 116/62 (80) 100 04/24/20 06:00 25 123/70 Mechanical Ventilator 65 04/24/20 06:00 25 123/70 Mechanical Ventilator 65 04/24/20 05:00 18 104/59 Mechanical Ventilator 65 04/24/20 05:00 18 104/59 Mechanical Ventilator 65 04/24/20 05:00 54 18 104/59 (74) 100 04/24/20 04:00 65 04/24/20 04:00 Mechanical Ventilator 04/24/20 04:00 18 105/59 Mechanical Ventilator 65 04/24/20 04:00 18 105/59 Mechanical Ventilator 65 04/24/20 04:00 98.2 59 18 102/61 (75) 100 04/24/20 03:18 63 18 65 04/24/20 03:11 63 04/24/20 03:00 18 106/58 Mechanical Ventilator 65 04/24/20 03:00 18 106/58 Mechanical Ventilator 65 04/24/20 03:00 70 18 111/61 (78) 98 04/24/20 02:00 89 20 150/70 (96) 94 04/24/20 02:00 20 150/70 Mechanical Ventilator 65 04/24/20 02:00 20 150/70 Mechanical Ventilator 65 04/24/20 01:45 100 23 188/83 (118) 95 04/24/20 01:30 95 20 182/90 (120) 96 04/24/20 01:15 92 22 159/76 (103) 95 04/24/20 01:15 18 159/76 65 04/24/20 01:12 103 25 65 04/24/20 01:00 22 182/93 Mechanical Ventilator 65 04/24/20 01:00 22 182/93 Mechanical Ventilator 65 04/24/20 01:00 95 18 159/76 (103) 96 04/24/20 00:45 22 159/76 Mechanical Ventilator 65 04/24/20 00:30 23 200/105 Mechanical Ventilator 65 04/24/20 00:15 20 179/99 Mechanical Ventilator 65 04/24/20 00:00 18 160/94 Mechanical Ventilator 65 04/24/20 00:00 18 160/94 Mechanical Ventilator 65 04/24/20 00:00 98.6 78 19 161/87 (111) 97 04/24/20 00:00 Mechanical Ventilator 04/23/20 23:45 74 18 140/70 (93) 93 04/23/20 23:30 76 17 138/66 (90) 95 04/23/20 23:15 77 19 147/78 (101) 97 04/23/20 23:07 65 04/23/20 23:01 76 18 65 04/23/20 23:01 70 04/23/20 23:00 18 147/78 Mechanical Ventilator 65 04/23/20 23:00 18 147/78 Mechanical Ventilator 65 04/23/20 23:00 65 18 141/68 (92) 99 04/23/20 22:30 18 130/68 Mechanical Ventilator 70 04/23/20 22:25 18 130/68 Mechanical Ventilator 70 04/23/20 22:00 18 131/67 Mechanical Ventilator 70 04/23/20 22:00 18 131/67 Mechanical Ventilator 70 04/23/20 22:00 66 18 133/70 (91) 97 04/23/20 21:45 70 18 127/64 (85) 98 04/23/20 21:30 71 17 126/69 (88) 97 04/23/20 21:15 79 18 137/62 (87) 97 04/23/20 21:00 76 18 70 04/23/20 21:00 18 137/74 Mechanical Ventilator 70 04/23/20 21:00 18 137/74 Mechanical Ventilator 70 04/23/20 21:00 72 18 137/74 (95) 97 04/23/20 20:45 18 133/70 Mechanical Ventilator 70 04/23/20 20:00 70 04/23/20 20:00 98.4 77 17 145/61 (89) 96 04/23/20 20:00 17 145/61 Mechanical Ventilator 70 04/23/20 20:00 17 145/61 Mechanical Ventilator 70 04/23/20 20:00 Mechanical Ventilator 04/23/20 19:25 93 04/23/20 19:15 90 20 70 04/23/20 19:00 84 15 168/86 (113) 99 04/23/20 19:00 18 168/86 Mechanical Ventilator 70 04/23/20 19:00 18 168/86 Mechanical Ventilator 70 04/23/20 18:44 18 161/79 Mechanical Ventilator 70 04/23/20 18:00 18 158/78 Mechanical Ventilator 70 04/23/20 18:00 18 158/78 Mechanical Ventilator 70 04/23/20 18:00 66 19 142/80 (100) 99 04/23/20 17:00 18 124/63 Mechanical Ventilator 70 04/23/20 17:00 18 124/63 Mechanical Ventilator 70 2/21/21 17:00 62 18 124/63 (83) 100 04/23/20 16:00 Mechanical Ventilator 04/23/20 16:00 18 107/56 Mechanical Ventilator 70 04/23/20 16:00 18 107/56 Mechanical Ventilator 70 04/23/20 16:00 98.2 64 18 107/58 (74) 99 04/23/20 15:59 64 04/23/20 15:30 70 04/23/20 15:23 64 18 70 04/23/20 15:00 82 19 138/65 (89) 99 04/23/20 15:00 18 136/65 Mechanical Ventilator 70 04/23/20 15:00 18 136/65 Mechanical Ventilator 70 04/23/20 14:02 18 144/67 Mechanical Ventilator 75 04/23/20 14:00 18 134/63 Mechanical Ventilator 75 04/23/20 14:00 71 16 144/67 (92) 100 04/23/20 13:00 17 149/85 Mechanical Ventilator 75 04/23/20 13:00 18 149/85 Mechanical Ventilator 75 04/23/20 13:00 68 19 154/70 (98) 100 04/23/20 12:00 97.9 60 17 126/63 (84) 100 04/23/20 12:00 75 04/23/20 12:00 17 126/65 Mechanical Ventilator 75 04/23/20 12:00 17 126/65 Mechanical Ventilator 75 04/23/20 12:00 Mechanical Ventilator 04/23/20 11:23 63 04/23/20 11:13 18 104/57 Mechanical Ventilator 75 04/23/20 11:12 60 19 75 04/23/20 11:00 18 127/67 Mechanical Ventilator 75 04/23/20 11:00 18 127/67 Mechanical Ventilator 75 04/23/20 11:00 61 18 104/57 (73) 98 04/23/20 10:23 75 Intake and Output 04/23/20 04/24/20 19:00 07:00 Intake Total 1388.0 ml 1361.0 ml Output Total 1820 ml 1190 ml Balance -432.0 ml 171.0 ml Free Water 60 ml 40 ml IV Total 728.0 ml 721.0 ml Tube Feeding 600 ml 600 ml Output Urine Total 1800 ml 1170 ml Stool Total 20 ml 20 ml General Appearance: WD/WN, no acute distress HEENT: normocephalic, atraumatic Respiratory: chest wall non-tender Cardiovascular: normal rate, regular rhythm Abdomen: normal bowel sounds, soft, non tender, other - obese Laboratory Tests 04/23/20 11:06: White Blood Count 5.3, Red Blood Count 3.15L, Hemoglobin 8.9L, Hematocrit 28.7L, Mean Corpuscular Volume 91, Mean Corpuscular Hemoglobin 28.1, Mean Corpuscular Hemoglobin Concent 30.8L, Red Cell Distribution Width 17.6H, Platelet Count 290, Mean Platelet Volume 6.2L, Neutrophils (%) (Auto) 81.1H, Lymphocytes (%) (Auto) 11.6L, Monocytes (%) (Auto) 5.4, Eosinophils (%) (Auto) 0.4, Basophils (%) (Auto) 1.5, Sodium Level 141, Potassium Level 4.1, Chloride Level 104, Carbon Dioxide Level 34H, Anion Gap 3L, Blood Urea Nitrogen 15, Creatinine 0.3L, Estimat Glomerular Filtration Rate > 60, Glucose Level 119H, Calcium Level 8.5 04/24/20 05:43: White Blood Count 4.7L, Red Blood Count 3.11L, Hemoglobin 8.9L, Hematocrit 28.3L , Mean Corpuscular Volume 91, Mean Corpuscular Hemoglobin 28.6, Mean Corpuscular Hemoglobin Concent 31.3L, Red Cell Distribution Width 17.4H, Platelet Count 278, Mean Platelet Volume 6.2L, Neutrophils (%) (Auto) 78.7H, Lymphocytes (%) (Auto) 15.3L, Monocytes (%) (Auto) 5.5, Eosinophils (%) (Auto) 0.1, Basophils (%) (Auto) 0.4, Sodium Level 143, Potassium Level 4.3, Chloride Level 106, Carbon Dioxide Level 35H, Anion Gap 2L, Blood Urea Nitrogen 16, Creatinine 0.4L, Estimat Glomerular Filtration Rate > 60, Glucose Level 103, Calcium Level 8.4L, Phosphorus Level 3.4, Magnesium Level 2.2, Total Bilirubin 0.4, Aspartate Amino Transf (AST/SGOT) 16, Alanine Aminotransferase (ALT/SGPT) 48, Alkaline Phosphatase 137H, C-Reactive Protein, Quantitative < 0.4, Pro-B-Type Natriuretic Peptide 939H, Total Protein 5.2L, Albumin 2.1L, Globulin 3.1, Albumin/Globulin Ratio 0.7L Current Medications Medications (Trade) Dose Ordered Sig/Dennis Route PRN Reason Start Time Stop Time Status Last Admin Dose Admin Acetaminophen (Tylenol) 650 mg Q4H PRN ORAL Temp >100.5 04/13/20 00:30 05/13/20 00:29 04/13/20 01:30 Bisacodyl (Dulcolax) 10 mg Q12H PRN RECTAL Constipation 03/18/20 16:45 06/16/20 16:44 Chlorhexidine Gluconate (Marlen-Hex 2%) 1 applic DAILY@2000 TOPIC 03/30/20 20:00 06/28/20 19:59 04/23/20 20:24 Dextrose (Dextrose 50%) 25 ml Q30M PRN IV Hypoglycemia 03/29/20 20:45 06/27/20 20:44 Dextrose (Dextrose 50%) 50 ml Q30M PRN IV Hypoglycemia 03/29/20 20:45 06/27/20 20:44 Enoxaparin Sodium (Lovenox) 80 mg EVERY 12 HOURS SUBQ 04/06/20 21:00 07/05/20 20:59 04/24/20 09:08 Fentanyl Citrate 250 ml @ 1 mls/hr Q24H IV 04/23/20 13:00 04/25/20 12:59 04/24/20 07:00 Furosemide (Lasix) 20 mg DAILY IV 04/22/20 12:45 05/22/20 12:44 04/24/20 09:06 Hydralazine HCl (Apresoline) 10 mg Q4H PRN IV For High Blood Pressure 03/30/20 12:15 06/28/20 12:14 04/21/20 05:20 Insulin Aspart (NovoLOG) Q6HR SUBQ 03/30/20 00:00 06/28/20 00:00 04/20/20 23:34 Labetalol HCl (Normodyne) 10 mg Q4H PRN IV sbp greater tahtn 160 03/28/20 17:30 04/27/20 17:29 04/21/20 06:02 Lansoprazole (Prevacid) 15 mg Q12HR GT 04/20/20 21:00 05/20/20 20:59 04/24/20 09:05 Methylprednisolone Sodium Succinate (Solu-MEDROL) 20 mg Q12HR IVP 04/12/20 21:00 06/20/20 20:59 04/24/20 09:06 Metoclopramide HCl (Reglan) 10 mg Q6H IVP 03/30/20 15:00 04/29/20 14:59 04/24/20 09:06 Midazolam HCl 200 ml @ 0 mls/hr Q24H PRN IV Agitation 04/17/20 22:30 04/24/20 22:29 04/24/20 07:30 Morphine Sulfate (Morphine Sulfate) 4 mg Q6H PRN IVP agitation despite sedating med 04/21/20 12:45 04/28/20 12:44 04/24/20 01:44 Trimethoprim/ Sulfamethoxazole (Bactrim-DS) 1 tab DAILY ORAL 04/23/20 20:00 05/23/20 19:59 04/24/20 09:06 Assessment/Plan Assessment/Plan Assessment/Plan 1.COVID-19 pneumonia. - Completed specific therapies - On solumedrol 20 Iv q 12 2. DVT ppx - on lovenox 3. Hypertension - no longer on meds - Not requiring pressors 4. Leukocytosis; - ID following - Off abx - Candidemia documented 03/18/20 5. Elevated LFT - positive Hep C; treated in the past with IF 6. Respiratory failure -Intubated 03/28/20 -Family aware - Prognosis guarded - Vt 750; rate 18 -On sedation; added Morphine to Versed/fentanyl 7. Discussed with cardiology -No evidence for cardiac dysfunction or PE -tachycardic; will increase sedation 8. AMS -back on sedation - has apparent left arm paresis - Will consider CT brain when more stable S/p new PICC line Noted left upper extremity swelling. Has DVT; on full dose Lovenox Continue sedation, DC propofol given high triglycerides. Continue fentanyl and Versed. Saturations plummeted 04/20/20 when patient became agitated Now fully sedated on 80->100 ->90 ->80 -> 50% FiO2 ; PEEP 5 Intubated now for 2-3 weeks Discussed tracheostomy with surgery Will wean down FiO2 as tolerated CXR shows bilateral interstitial changes? fibrosis? John Mata MD Apr 24, 2020 10:10
--- NOTE | 2020-04-24 10:15 | NUR ---
NURSE NOTES: Dr Mata on the unit, making his rounds. Updated him on pt's current condition. No new orders given. FiO2 60% at this time.
--- NOTE | 2020-04-24 11:24 | Surgery Progress Note ---
Surgery Progress Note Subjective Additional Comments Patient seen examined bedside. No acute events. Weaning well. Discussed with pulmonology. Unlikely able to extubate anytime soon tracheostomy likely be ind icated recommended. We will plan this week as long as weaning can continue stable. Objective Last 24 Hour Vital Signs Date Time Temp Pulse Resp B/P (MAP) Pulse Ox O2 Delivery O2 Flow Rate FiO2 04/24/20 09:00 71 17 126/60 (82) 95 04/24/20 08:30 74 18 153/74 (100) 96 04/24/20 08:20 82 19 60 04/24/20 08:00 Mechanical Ventilator 04/24/20 08:00 20 167/92 Mechanical Ventilator 65 04/24/20 08:00 20 167/92 Mechanical Ventilator 65 04/24/20 08:00 65 04/24/20 08:00 97.9 82 17 167/92 (117) 98 04/24/20 07:45 73 16 159/78 (105) 98 04/24/20 07:30 73 16 181/88 (119) 100 04/24/20 07:30 20 114/68 Mechanical Ventilator 65 04/24/20 07:15 82 18 65 04/24/20 07:15 53 18 114/59 (77) 100 04/24/20 07:00 52 18 113/62 (79) 100 04/24/20 07:00 18 119/75 Mechanical Ventilator 65 04/24/20 06:45 50 18 119/64 (82) 100 04/24/20 06:30 23 118/69 Mechanical Ventilator 65 04/24/20 06:30 52 18 114/64 (81) 100 04/24/20 06:15 51 18 118/65 (82) 100 04/24/20 06:00 51 18 116/62 (80) 100 04/24/20 06:00 25 123/70 Mechanical Ventilator 65 04/24/20 06:00 25 123/70 Mechanical Ventilator 65 04/24/20 05:00 18 104/59 Mechanical Ventilator 65 04/24/20 05:00 18 104/59 Mechanical Ventilator 65 04/24/20 05:00 54 18 104/59 (74) 100 04/24/20 04:00 65 04/24/20 04:00 Mechanical Ventilator 04/24/20 04:00 18 105/59 Mechanical Ventilator 65 04/24/20 04:00 18 105/59 Mechanical Ventilator 65 04/24/20 04:00 98.2 59 18 102/61 (75) 100 04/24/20 03:18 63 18 65 04/24/20 03:11 63 04/24/20 03:00 18 106/58 Mechanical Ventilator 65 04/24/20 03:00 18 106/58 Mechanical Ventilator 65 04/24/20 03:00 70 18 111/61 (78) 98 04/24/20 02:00 89 20 150/70 (96) 94 04/24/20 02:00 20 150/70 Mechanical Ventilator 65 04/24/20 02:00 20 150/70 Mechanical Ventilator 65 04/24/20 01:45 100 23 188/83 (118) 95 04/24/20 01:30 95 20 182/90 (120) 96 04/24/20 01:15 92 22 159/76 (103) 95 04/24/20 01:15 18 159/76 65 04/24/20 01:12 103 25 65 04/24/20 01:00 22 182/93 Mechanical Ventilator 65 04/24/20 01:00 22 182/93 Mechanical Ventilator 65 04/24/20 01:00 95 18 159/76 (103) 96 04/24/20 00:45 22 159/76 Mechanical Ventilator 65 04/24/20 00:30 23 200/105 Mechanical Ventilator 65 04/24/20 00:15 20 179/99 Mechanical Ventilator 65 04/24/20 00:00 18 160/94 Mechanical Ventilator 65 04/24/20 00:00 18 160/94 Mechanical Ventilator 65 04/24/20 00:00 98.6 78 19 161/87 (111) 97 04/24/20 00:00 Mechanical Ventilator 04/23/20 23:45 74 18 140/70 (93) 93 04/23/20 23:30 76 17 138/66 (90) 95 04/23/20 23:15 77 19 147/78 (101) 97 04/23/20 23:07 65 04/23/20 23:01 76 18 65 04/23/20 23:01 70 04/23/20 23:00 18 147/78 Mechanical Ventilator 65 04/23/20 23:00 18 147/78 Mechanical Ventilator 65 04/23/20 23:00 65 18 141/68 (92) 99 04/23/20 22:30 18 130/68 Mechanical Ventilator 70 04/23/20 22:25 18 130/68 Mechanical Ventilator 70 04/23/20 22:00 18 131/67 Mechanical Ventilator 70 04/23/20 22:00 18 131/67 Mechanical Ventilator 70 04/23/20 22:00 66 18 133/70 (91) 97 04/23/20 21:45 70 18 127/64 (85) 98 04/23/20 21:30 71 17 126/69 (88) 97 04/23/20 21:15 79 18 137/62 (87) 97 04/23/20 21:00 76 18 70 04/23/20 21:00 18 137/74 Mechanical Ventilator 70 04/23/20 21:00 18 137/74 Mechanical Ventilator 70 04/23/20 21:00 72 18 137/74 (95) 97 04/23/20 20:45 18 133/70 Mechanical Ventilator 70 04/23/20 20:00 70 04/23/20 20:00 98.4 77 17 145/61 (89) 96 04/23/20 20:00 17 145/61 Mechanical Ventilator 70 04/23/20 20:00 17 145/61 Mechanical Ventilator 70 04/23/20 20:00 Mechanical Ventilator 04/23/20 19:25 93 04/23/20 19:15 90 20 70 04/23/20 19:00 84 15 168/86 (113) 99 04/23/20 19:00 18 168/86 Mechanical Ventilator 70 04/23/20 19:00 18 168/86 Mechanical Ventilator 70 04/23/20 18:44 18 161/79 Mechanical Ventilator 70 04/23/20 18:00 18 158/78 Mechanical Ventilator 70 04/23/20 18:00 18 158/78 Mechanical Ventilator 70 04/23/20 18:00 66 19 142/80 (100) 99 04/23/20 17:00 18 124/63 Mechanical Ventilator 70 04/23/20 17:00 18 124/63 Mechanical Ventilator 70 04/23/20 17:00 62 18 124/63 (83) 100 04/23/20 16:00 Mechanical Ventilator 04/23/20 16:00 18 107/56 Mechanical Ventilator 70 04/23/20 16:00 18 107/56 Mechanical Ventilator 70 04/23/20 16:00 98.2 64 18 107/58 (74) 99 04/23/20 15:59 64 04/23/20 15:30 70 04/23/20 15:23 64 18 70 04/23/20 15:00 82 19 138/65 (89) 99 04/23/20 15:00 18 136/65 Mechanical Ventilator 70 04/23/20 15:00 18 136/65 Mechanical Ventilator 70 04/23/20 14:02 18 144/67 Mechanical Ventilator 75 04/23/20 14:00 18 134/63 Mechanical Ventilator 75 04/23/20 14:00 71 16 144/67 (92) 100 04/23/20 13:00 17 149/85 Mechanical Ventilator 75 04/23/20 13:00 18 149/85 Mechanical Ventilator 75 04/23/20 13:00 68 19 154/70 (98) 100 04/23/20 12:00 97.9 60 17 126/63 (84) 100 04/23/20 12:00 75 04/23/20 12:00 17 126/65 Mechanical Ventilator 75 04/23/20 12:00 17 126/65 Mechanical Ventilator 75 04/23/20 12:00 Mechanical Ventilator I&O Intake and Output 04/23/20 04/24/20 19:00 07:00 Intake Total 1388.0 ml 1361.0 ml Output Total 1820 ml 1190 ml Balance -432.0 ml 171.0 ml Free Water 60 ml 40 ml IV Total 728.0 ml 721.0 ml Tube Feeding 600 ml 600 ml Output Urine Total 1800 ml 1170 ml Stool Total 20 ml 20 ml Dressing: saturated Wound: clean Cardiovascular: RSR Respiratory: decreased breath sounds Abdomen: soft, non-tender, present bowel sounds, non-distended Extremities: no tenderness, no cyanosis Laboratory Tests Test 04/24/20 05:43 White Blood Count 4.7 K/UL (4.8-10.8) L Red Blood Count 3.11 M/UL (4.70-6.10) L Hemoglobin 8.9 G/DL (14.2-18.0) L Hematocrit 28.3 % (42.0-52.0) L Mean Corpuscular Volume 91 FL (80-99) Mean Corpuscular Hemoglobin 28.6 PG (27.0-31.0) Mean Corpuscular Hemoglobin Concent 31.3 G/DL (32.0-36.0) L Red Cell Distribution Width 17.4 % (11.6-14.8) H Platelet Count 278 K/UL (150-450) Mean Platelet Volume 6.2 FL (6.5-10.1) L Neutrophils (%) (Auto) 78.7 % (45.0-75.0) H Lymphocytes (%) (Auto) 15.3 % (20.0-45.0) L Monocytes (%) (Auto) 5.5 % (1.0-10.0) Eosinophils (%) (Auto) 0.1 % (0.0-3.0) Basophils (%) (Auto) 0.4 % (0.0-2.0) Sodium Level 143 MMOL/L (136-145) Potassium Level 4.3 MMOL/L (3.5-5.1) Chloride Level 106 MMOL/L (98-107) Carbon Dioxide Level 35 MMOL/L (21-32) H Anion Gap 2 mmol/L (5-15) L Blood Urea Nitrogen 16 mg/dL (7-18) Creatinine 0.4 MG/DL (0.55-1.30) L Estimat Glomerular Filtration Rate > 60 mL/min (>60) Glucose Level 103 MG/DL (74-106) Calcium Level 8.4 MG/DL (8.5-10.1) L Phosphorus Level 3.4 MG/DL (2.5-4.9) Magnesium Level 2.2 MG/DL (1.8-2.4) Total Bilirubin 0.4 MG/DL (0.2-1.0) Aspartate Amino Transf (AST/SGOT) 16 U/L (15-37) Alanine Aminotransferase (ALT/SGPT) 48 U/L (12-78) Alkaline Phosphatase 137 U/L (46-116) H C-Reactive Protein, Quantitative < 0.4 mg/dL (0.00-0.90) Pro-B-Type Natriuretic Peptide 939 pg/mL (0-125) H Total Protein 5.2 G/DL (6.4-8.2) L Albumin 2.1 G/DL (3.4-5.0) L Globulin 3.1 g/dL Albumin/Globulin Ratio 0.7 (1.0-2.7) L Plan Problems: (1) Pneumonia (2) Staphylococcus aureus bacteremia (3) COVID-19 virus infection (4) Chest pain (5) Hypertension (6) Dehydration (7) Electrolyte imbalance (8) DMII (diabetes mellitus, type 2) (9) Protein malnutrition (10) Respiratory insufficiency Assessment & Plan: 64-year-old male with respiratory insufficiency intubated in an intensive care unit. Patient has been unable to safely wean off ventilatory support. Surgery called to evaluate for tracheostomy. After careful evaluation patient is a candidate for tracheostomy. In the meantime will obtain consent. If consent obtained will proceed with scheduling. Thank you for your participation's care will follow recommendations Booker Rausch Apr 24, 2020 11:24
--- NOTE | 2020-04-24 12:00 | NUR ---
NURSE NOTES: BS 104. No insulin coverage given, per sliding scale. Oral care done. Pt remains afebrile
--- NOTE | 2020-04-24 13:10 | NUR ---
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 97.9 HR 82 RR 18 B/P 167/82 AC 18 TV 695 FIO2 60% PEEP 5 IS: FENTANYL GTT VERSED GTT LASIX IV SOLU MEDROL IV ICU STATUS
[2020-04-24] MEDS ORDERED: NS 275ml ONE (13:56)
--- NOTE | 2020-04-24 14:00 | NUR ---
NURSE NOTES: Pt turned and repositioned. Pt remains on Fentanyl 300mcg/hr and Versed 20mg/hr
--- NOTE | 2020-04-24 15:17 | NUR ---
NURSE NOTES: FiO2 decreased to 55%. Pt tolerating well.
--- NOTE | 2020-04-24 15:17 | NUR ---
INSURANCE CLINCALS/REVIEW FAXED TO [employer] T: [phone] #1 F: [phone] AND [employer]:JACQUELINE JAMES T: [phone] F: [phone]
--- NOTE | 2020-04-24 17:14 | NUR ---
NURSE NOTES: Pt fully cleaned and linens changed. Oral care done. Rectal tube still in place, no leak noted.
--- NOTE | 2020-04-24 18:03 | Cardiology Progress Note ---
Assessment/Plan Assessment/Plan Acute covid 19 pneumonia hypoxemia infiltrate bilat bacteremia hypernatremia / hyponatremia mild abn lfts tachy post intubation fever fungemia dvt upper ext now on 50 % fio2 , have been sucessfuly weaned form 100 % yet !! keep titrate slowly dc lasix as biarb a little higher 2-[address] fry full sedated with fentanyl and versed not afebrile now hypoxemia unlikely cardiac related tube feeding being tolerated echo reviewed last on 04/06 still shows normal lv function no valve pathology cxr still showing bilateral lower lobe infiltrates as of04/18 tele reviewed sinus now is on full dose anticoag due to dvt ue cr is stable d/w rn hsi abg show good oxygen level from 04/21 covid pcr negative , however considering that it took 3 tests to finally initially identify his covid infection i am not sure if we can trust Subjective Subjective not communicative dionisio vent Pt is resting on the bed, Sedated at this time; however notably starting to get agitated, as Versed was held d/t bradycardia. HR currently 78bpm on court recording monitor. Pt is orally intubated ETT 8.0, 26cm @ the lip line. Vent settings: AC 18, TV 750, Fio2 65%, peep of 5, and O2sat is at 98%. no s/s of respiratory distress at this time. Pt has OGT, running Glucerna 1.5 at 50ml/hr, no residual noted at this time. rectal tube is in place, no leakage noted. BM color is brown. Brownlee cath is noted, draining well with gravity to uromete Objective Last 24 Hour Vital Signs Date Time Temp Pulse Resp B/P (MAP) Pulse Ox O2 Delivery O2 Flow Rate FiO2 04/24/20 17:00 76 16 151/67 (95) 93 04/24/20 16:00 82 04/24/20 16:00 Mechanical Ventilator 04/24/20 16:00 55 04/24/20 16:00 82 17 150/63 (92) 96 04/24/20 16:00 18 150/63 Mechanical Ventilator 55 04/24/20 16:00 18 150/63 Mechanical Ventilator 55 04/24/20 15:20 51 18 55 04/24/20 15:15 18 112/59 Mechanical Ventilator 60 04/24/20 15:00 52 18 112/59 (76) 99 04/24/20 15:00 18 112/59 Mechanical Ventilator 60 04/24/20 15:00 18 112/59 Mechanical Ventilator 60 04/24/20 14:30 53 18 111/56 (74) 98 04/24/20 14:00 20 115/60 Mechanical Ventilator 60 04/24/20 14:00 20 115/60 Mechanical Ventilator 60 04/24/20 14:00 53 18 115/60 (78) 99 04/24/20 13:30 53 18 112/58 (76) 98 04/24/20 13:00 18 112/58 Mechanical Ventilator 60 04/24/20 13:00 18 112/58 Mechanical Ventilator 60 04/24/20 13:00 54 18 113/58 (76) 97 04/24/20 12:30 54 18 114/60 (78) 96 04/24/20 12:30 20 118/61 Mechanical Ventilator 60 04/24/20 12:00 98.0 55 18 118/59 (78) 95 04/24/20 12:00 18 118/61 Mechanical Ventilator 60 04/24/20 12:00 18 118/61 Mechanical Ventilator 60 04/24/20 12:00 Mechanical Ventilator 04/24/20 12:00 60 04/24/20 12:00 55 04/24/20 11:00 53 18 125/68 (87) 99 04/24/20 11:00 18 122/64 Mechanical Ventilator 60 04/24/20 11:00 18 122/64 Mechanical Ventilator 60 04/24/20 10:56 56 18 60 04/24/20 10:30 61 18 106/60 (75) 97 04/24/20 10:00 59 18 111/60 (77) 95 04/24/20 10:00 18 106/60 Mechanical Ventilator 60 04/24/20 10:00 18 106/60 Mechanical Ventilator 60 04/24/20 09:30 68 18 126/64 (84) 97 04/24/20 09:00 71 17 126/60 (82) 95 04/24/20 09:00 18 110/59 Mechanical Ventilator 60 04/24/20 09:00 18 110/59 Mechanical Ventilator 60 04/24/20 08:30 74 18 153/74 (100) 96 04/24/20 08:20 82 19 60 04/24/20 08:00 Mechanical Ventilator 04/24/20 08:00 20 167/92 Mechanical Ventilator 65 04/24/20 08:00 20 167/92 Mechanical Ventilator 65 04/24/20 08:00 65 04/24/20 08:00 97.9 82 17 167/92 (117) 98 04/24/20 08:00 85 04/24/20 07:45 73 16 159/78 (105) 98 04/24/20 07:30 73 16 181/88 (119) 100 04/24/20 07:30 20 114/68 Mechanical Ventilator 65 04/24/20 07:15 82 18 65 04/24/20 07:15 53 18 114/59 (77) 100 04/24/20 07:00 52 18 113/62 (79) 100 04/24/20 07:00 18 119/75 Mechanical Ventilator 65 04/24/20 06:45 50 18 119/64 (82) 100 04/24/20 06:30 23 118/69 Mechanical Ventilator 65 04/24/20 06:30 52 18 114/64 (81) 100 04/24/20 06:15 51 18 118/65 (82) 100 04/24/20 06:00 51 18 116/62 (80) 100 04/24/20 06:00 25 123/70 Mechanical Ventilator 65 04/24/20 06:00 25 123/70 Mechanical Ventilator 65 04/24/20 05:00 18 104/59 Mechanical Ventilator 65 04/24/20 05:00 18 104/59 Mechanical Ventilator 65 04/24/20 05:00 54 18 104/59 (74) 100 04/24/20 04:00 65 04/24/20 04:00 Mechanical Ventilator 04/24/20 04:00 18 105/59 Mechanical Ventilator 65 04/24/20 04:00 18 105/59 Mechanical Ventilator 65 04/24/20 04:00 98.2 59 18 102/61 (75) 100 04/24/20 03:18 63 18 65 04/24/20 03:11 63 04/24/20 03:00 18 106/58 Mechanical Ventilator 65 04/24/20 03:00 18 106/58 Mechanical Ventilator 65 04/24/20 03:00 70 18 111/61 (78) 98 04/24/20 02:00 89 20 150/70 (96) 94 04/24/20 02:00 20 150/70 Mechanical Ventilator 65 04/24/20 02:00 20 150/70 Mechanical Ventilator 65 04/24/20 01:45 100 23 188/83 (118) 95 04/24/20 01:30 95 20 182/90 (120) 96 04/24/20 01:15 92 22 159/76 (103) 95 04/24/20 01:15 18 159/76 65 04/24/20 01:12 103 25 65 04/24/20 01:00 22 182/93 Mechanical Ventilator 65 04/24/20 01:00 22 182/93 Mechanical Ventilator 65 04/24/20 01:00 95 18 159/76 (103) 96 04/24/20 00:45 22 159/76 Mechanical Ventilator 65 04/24/20 00:30 23 200/105 Mechanical Ventilator 65 04/24/20 00:15 20 179/99 Mechanical Ventilator 65 04/24/20 00:00 18 160/94 Mechanical Ventilator 65 04/24/20 00:00 18 160/94 Mechanical Ventilator 65 04/24/20 00:00 98.6 78 19 161/87 (111) 97 04/24/20 00:00 Mechanical Ventilator 04/23/20 23:45 74 18 140/70 (93) 93 04/23/20 23:30 76 17 138/66 (90) 95 04/23/20 23:15 77 19 147/78 (101) 97 04/23/20 23:07 65 04/23/20 23:01 76 18 65 04/23/20 23:01 70 04/23/20 23:00 18 147/78 Mechanical Ventilator 65 04/23/20 23:00 18 147/78 Mechanical Ventilator 65 04/23/20 23:00 65 18 141/68 (92) 99 04/23/20 22:30 18 130/68 Mechanical Ventilator 70 04/23/20 22:25 18 130/68 Mechanical Ventilator 70 04/23/20 22:00 18 131/67 Mechanical Ventilator 70 04/23/20 22:00 18 131/67 Mechanical Ventilator 70 04/23/20 22:00 66 18 133/70 (91) 97 04/23/20 21:45 70 18 127/64 (85) 98 04/23/20 21:30 71 17 126/69 (88) 97 04/23/20 21:15 79 18 137/62 (87) 97 04/23/20 21:00 76 18 70 04/23/20 21:00 18 137/74 Mechanical Ventilator 70 04/23/20 21:00 18 137/74 Mechanical Ventilator 70 04/23/20 21:00 72 18 137/74 (95) 97 04/23/20 20:45 18 133/70 Mechanical Ventilator 70 04/23/20 20:00 70 04/23/20 20:00 98.4 77 17 145/61 (89) 96 04/23/20 20:00 17 145/61 Mechanical Ventilator 70 04/23/20 20:00 17 145/61 Mechanical Ventilator 70 04/23/20 20:00 Mechanical Ventilator 04/23/20 19:25 93 04/23/20 19:15 90 20 70 04/23/20 19:00 84 15 168/86 (113) 99 04/23/20 19:00 18 168/86 Mechanical Ventilator 70 04/23/20 19:00 18 168/86 Mechanical Ventilator 70 04/23/20 18:44 18 161/79 Mechanical Ventilator 70 04/23/20 18:00 18 158/78 Mechanical Ventilator 70 04/23/20 18:00 18 158/78 Mechanical Ventilator 70 04/23/20 18:00 66 19 142/80 (100) 99 Intake and Output 04/23/20 04/24/20 19:00 07:00 Intake Total 1388.0 ml 1361.0 ml Output Total 1820 ml 1190 ml Balance -432.0 ml 171.0 ml Free Water 60 ml 40 ml IV Total 728.0 ml 721.0 ml Tube Feeding 600 ml 600 ml Output Urine Total 1800 ml 1170 ml Stool Total 20 ml 20 ml Laboratory Tests Test 04/24/20 05:43 White Blood Count 4.7 K/UL (4.8-10.8) L Red Blood Count 3.11 M/UL (4.70-6.10) L Hemoglobin 8.9 G/DL (14.2-18.0) L Hematocrit 28.3 % (42.0-52.0) L Mean Corpuscular Volume 91 FL (80-99) Mean Corpuscular Hemoglobin 28.6 PG (27.0-31.0) Mean Corpuscular Hemoglobin Concent 31.3 G/DL (32.0-36.0) L Red Cell Distribution Width 17.4 % (11.6-14.8) H Platelet Count 278 K/UL (150-450) Mean Platelet Volume 6.2 FL (6.5-10.1) L Neutrophils (%) (Auto) 78.7 % (45.0-75.0) H Lymphocytes (%) (Auto) 15.3 % (20.0-45.0) L Monocytes (%) (Auto) 5.5 % (1.0-10.0) Eosinophils (%) (Auto) 0.1 % (0.0-3.0) Basophils (%) (Auto) 0.4 % (0.0-2.0) Sodium Level 143 MMOL/L (136-145) Potassium Level 4.3 MMOL/L (3.5-5.1) Chloride Level 106 MMOL/L (98-107) Carbon Dioxide Level 35 MMOL/L (21-32) H Anion Gap 2 mmol/L (5-15) L Blood Urea Nitrogen 16 mg/dL (7-18) Creatinine 0.4 MG/DL (0.55-1.30) L Estimat Glomerular Filtration Rate > 60 mL/min (>60) Glucose Level 103 MG/DL (74-106) Calcium Level 8.4 MG/DL (8.5-10.1) L Phosphorus Level 3.4 MG/DL (2.5-4.9) Magnesium Level 2.2 MG/DL (1.8-2.4) Total Bilirubin 0.4 MG/DL (0.2-1.0) Aspartate Amino Transf (AST/SGOT) 16 U/L (15-37) Alanine Aminotransferase (ALT/SGPT) 48 U/L (12-78) Alkaline Phosphatase 137 U/L (46-116) H C-Reactive Protein, Quantitative < 0.4 mg/dL (0.00-0.90) Pro-B-Type Natriuretic Peptide 939 pg/mL (0-125) H Total Protein 5.2 G/DL (6.4-8.2) L Albumin 2.1 G/DL (3.4-5.0) L Globulin 3.1 g/dL Albumin/Globulin Ratio 0.7 (1.0-2.7) L Objective pt seen persoanlly Manan Awan MD Apr 24, 2020 18:03
--- NOTE | 2020-04-24 19:16 | NUR ---
NURSE HAND-OFF REPORT: Latest Vital Signs: Temperature 98.9 , Pulse 62 , B/P 121 /62 , Respiratory Rate 18 , O2 SAT 95 , Mechanical Ventilator, FiO2 55% . Vital Sign Comment: EKG Rhythm: Sinus Rhythm Rhythm change?: N MD Notified?: Response: Latest Hassan Fall Score: 50 Fall Risk: High Risk Safety Measures: Call light Within Reach, Bed Alarm Zone 3, Side Rails Side Rails x3, Bed position Low and Locked. Fall Precautions: Yellow Socks Yellow Gown Door Sign Patient Fall Education Report given to PRIYANKA Hayden.
--- NOTE | 2020-04-24 19:30 | NUR ---
NURSE NOTES: Received pt orally intubated on ac mode, sedated with Fentanyl 300mcg/min,Versed drip at 20mg/min, extremities swollen with weakness to left arm elevated with pillow, Rt wrist soft restraint maintained for safety. Tolerated Fdg at this time. HOB kept elevated, On aspiration precaution. Rectal tube to gravity with scant amt of brownish stool. SR on the monitor, bp stable, afebrile. Will continue to monitor.
[2020-04-24] MEDS: Dyna-Hex 2% Top Sol 2oz TOPIC SCH (19:53)
--- NOTE | 2020-04-24 22:00 | NUR ---
NURSE NOTES: Suctioned tk beige secretions moderate in amt. repositioned for comfort. Will continue to monitor.
[2020-04-25] VITALS (38 sets, daily range): BP systolic 95–192; BP diastolic 50–94
[2020-04-25] MEDS ORDERED: VERSED IV PRN (00:30)
[2020-04-25] MEDS ORDERED: [UNRECOGNIZED DRUG - OTHER] IV PRN (00:30)
[2020-04-25] MEDS: Morphine Sulfate 4mg/ml Inj IVP PRN (00:36)
--- NOTE | 2020-04-25 00:36 | NUR ---
NURSE NOTES: Pts ws agitated inspite of the current sedation, Morphine 4mg IVP was given.
[2020-04-25] MEDS: [UNRECOGNIZED DRUG - OTHER] IV PRN ×5 (00:58→21:45)
[2020-04-25] MEDS: VERSED IV PRN ×5 (00:58→21:45)
--- NOTE | 2020-04-25 01:15 | NUR ---
NURSE NOTES: Resting well at this time. not agitated.
--- NOTE | 2020-04-25 02:04 | NUR ---
NURSE NOTES: Apresoline 10mg ivp was given due to pts BP 180s
[2020-04-25] MEDS: Metoclopramide 10mg/2ml Inj IVP SCH ×4 (02:44→20:37)
--- NOTE | 2020-04-25 03:23 | NUR ---
NURSE NOTES: Called MD Mata at this time. Patient noted to be With peak pressures 60, HR 130, BP 197/84. Fentanyl gtt at max rate of 300mg/hr, Versed 20 mg/hr. PRN Dilaudid has also been given and patient not responding to meds. RASS currently +3, +2. MD Ordered Propofol gtt to be started at this time. Orders read back and confirmed by MD. Lab notified about the need for triglycerides level to be drawn.
[2020-04-25] MEDS: propofoL 1,000mg/100ml 100 ML IV SCH ×3 (03:43→19:49)
--- NOTE | 2020-04-25 05:00 | NUR ---
NURSE NOTES: Complete bed bath with bed changed was done.
[2020-04-25] MEDS: NovoLOG Insulin Flexpen SUBQ SCH ×3 (05:57→18:03)
--- NOTE | 2020-04-25 06:00 | NUR ---
NURSE NOTES: Resting well not agitated when Propofol was added.
--- NOTE | 2020-04-25 06:44 | General Progress Note ---
Subjective ROS Limited/Unobtainable: No Allergies: Coded Allergies: No Known Allergies (Unverified , 02/05/20) Objective Last 24 Hour Vital Signs Date Time Temp Pulse Resp B/P (MAP) Pulse Ox O2 Delivery O2 Flow Rate FiO2 04/25/20 06:28 18 106/59 Mechanical Ventilator 55 04/25/20 06:00 18 106/59 Mechanical Ventilator 55 04/25/20 06:00 18 106/59 Mechanical Ventilator 55 04/25/20 05:59 21 105/60 Mechanical Ventilator 55 04/25/20 05:28 18 94/53 Mechanical Ventilator 55 04/25/20 05:00 18 94/53 Mechanical Ventilator 55 04/25/20 05:00 18 94/53 Mechanical Ventilator 55 04/25/20 04:30 70 18 95/50 (65) 94 04/25/20 04:28 18 98/53 Mechanical Ventilator 55 04/25/20 04:13 21 110/53 Mechanical Ventilator 55 04/25/20 04:00 71 04/25/20 04:00 87 19 110/53 (72) 94 04/25/20 04:00 Mechanical Ventilator 04/25/20 04:00 18 98/53 Mechanical Ventilator 55 04/25/20 04:00 18 98/53 Mechanical Ventilator 55 04/25/20 04:00 55 04/25/20 03:58 29 143/71 Mechanical Ventilator 55 04/25/20 03:43 42 197/84 Mechanical Ventilator 55 04/25/20 03:30 111 30 143/71 (95) 94 04/25/20 03:00 113 22 50 04/25/20 03:00 113 26 172/71 (104) 93 04/25/20 03:00 24 197/84 Mechanical Ventilator 55 04/25/20 03:00 24 197/84 Mechanical Ventilator 55 04/25/20 02:30 96 22 180/71 (107) 94 04/25/20 02:04 176/80 04/25/20 02:00 89 19 176/87 (116) 91 04/25/20 02:00 23 184/86 Mechanical Ventilator 55 04/25/20 02:00 184/86 Endotracheal Tube 55 04/25/20 01:30 78 19 173/75 (107) 89 04/25/20 01:00 21 178/91 Mechanical Ventilator 55 04/25/20 01:00 22 175/80 Mechanical Ventilator 55 04/25/20 01:00 86 22 182/94 (123) 91 04/25/20 00:58 22 178/81 Mechanical Ventilator 55 04/25/20 00:45 86 19 178/91 (120) 92 04/25/20 00:30 91 20 192/92 (125) 89 04/25/20 00:00 85 04/25/20 00:00 55 04/25/20 00:00 18 187/89 Mechanical Ventilator 55 04/25/20 00:00 21 187/89 Mechanical Ventilator 04/25/20 00:00 98.6 60 18 135/59 (84) 93 04/25/20 00:00 Mechanical Ventilator 04/24/20 23:52 23 125/56 50 04/24/20 23:30 58 18 118/59 (78) 91 04/24/20 23:10 51 18 50 04/24/20 23:00 55 18 124/67 (86) 96 04/24/20 23:00 21 124/65 Mechanical Ventilator 55 04/24/20 23:00 20 124/65 Mechanical Ventilator 55 04/24/20 23:00 50 04/24/20 22:30 60 18 120/65 (83) 95 04/24/20 22:00 21 126/65 Mechanical Ventilator 55 04/24/20 22:00 18 126/65 Mechanical Ventilator 55 04/24/20 22:00 60 18 114/56 (75) 94 04/24/20 21:30 52 18 125/65 (85) 96 04/24/20 21:00 57 18 118/59 (78) 93 04/24/20 21:00 18 113/60 Mechanical Ventilator 55 04/24/20 21:00 18 113/60 Mechanical Ventilator 55 04/24/20 20:30 58 18 133/70 (91) 93 04/24/20 20:15 54 18 119/62 (81) 98 04/24/20 20:00 98.0 56 18 112/57 (75) 98 04/24/20 20:00 Mechanical Ventilator 04/24/20 20:00 18 119/62 Mechanical Ventilator 55 04/24/20 20:00 18 113/60 Mechanical Ventilator 55 04/24/20 19:45 57 18 113/58 (76) 97 04/24/20 19:30 59 18 128/63 (84) 98 04/24/20 19:00 18 121/62 Mechanical Ventilator 55 04/24/20 19:00 18 121/62 Mechanical Ventilator 55 04/24/20 19:00 63 18 55 04/24/20 19:00 62 18 121/62 (81) 95 04/24/20 18:37 18 129/65 Mechanical Ventilator 55 04/24/20 18:00 83 19 166/80 (108) 93 04/24/20 18:00 18 129/71 Mechanical Ventilator 55 04/24/20 18:00 18 129/71 Mechanical Ventilator 55 04/24/20 17:00 76 16 151/67 (95) 93 04/24/20 17:00 18 157/79 Mechanical Ventilator 55 04/24/20 17:00 18 157/79 Mechanical Ventilator 55 04/24/20 16:00 82 04/24/20 16:00 Mechanical Ventilator 04/24/20 16:00 55 04/24/20 16:00 98.9 82 17 150/63 (92) 96 04/24/20 16:00 18 150/63 Mechanical Ventilator 55 04/24/20 16:00 18 150/63 Mechanical Ventilator 55 04/24/20 15:20 51 18 55 04/24/20 15:15 18 112/59 Mechanical Ventilator 60 04/24/20 15:00 52 18 112/59 (76) 99 04/24/20 15:00 18 112/59 Mechanical Ventilator 60 04/24/20 15:00 18 112/59 Mechanical Ventilator 60 04/24/20 14:30 53 18 111/56 (74) 98 04/24/20 14:00 20 115/60 Mechanical Ventilator 60 04/24/20 14:00 20 115/60 Mechanical Ventilator 60 04/24/20 14:00 53 18 115/60 (78) 99 04/24/20 13:30 53 18 112/58 (76) 98 04/24/20 13:00 18 112/58 Mechanical Ventilator 60 04/24/20 13:00 18 112/58 Mechanical Ventilator 60 04/24/20 13:00 54 18 113/58 (76) 97 04/24/20 12:30 54 18 114/60 (78) 96 04/24/20 12:30 20 118/61 Mechanical Ventilator 60 04/24/20 12:00 98.0 55 18 118/59 (78) 95 04/24/20 12:00 18 118/61 Mechanical Ventilator 60 04/24/20 12:00 18 118/61 Mechanical Ventilator 60 04/24/20 12:00 Mechanical Ventilator 04/24/20 12:00 60 04/24/20 12:00 55 04/24/20 11:00 53 18 125/68 (87) 99 04/24/20 11:00 18 122/64 Mechanical Ventilator 60 04/24/20 11:00 18 122/64 Mechanical Ventilator 60 04/24/20 10:56 56 18 60 04/24/20 10:30 61 18 106/60 (75) 97 04/24/20 10:00 59 18 111/60 (77) 95 04/24/20 10:00 18 106/60 Mechanical Ventilator 60 04/24/20 10:00 18 106/60 Mechanical Ventilator 60 04/24/20 09:30 68 18 126/64 (84) 97 04/24/20 09:00 71 17 126/60 (82) 95 04/24/20 09:00 18 110/59 Mechanical Ventilator 60 04/24/20 09:00 18 110/59 Mechanical Ventilator 60 04/24/20 08:30 74 18 153/74 (100) 96 04/24/20 08:20 82 19 60 04/24/20 08:00 Mechanical Ventilator 04/24/20 08:00 20 167/92 Mechanical Ventilator 65 04/24/20 08:00 20 167/92 Mechanical Ventilator 65 04/24/20 08:00 65 04/24/20 08:00 97.9 82 17 167/92 (117) 98 04/24/20 08:00 85 04/24/20 07:45 73 16 159/78 (105) 98 04/24/20 07:30 73 16 181/88 (119) 100 04/24/20 07:30 20 114/68 Mechanical Ventilator 65 04/24/20 07:15 82 18 65 04/24/20 07:15 53 18 114/59 (77) 100 04/24/20 07:00 52 18 113/62 (79) 100 04/24/20 07:00 18 119/75 Mechanical Ventilator 65 04/24/20 06:45 50 18 119/64 (82) 100 Intake and Output 04/24/20 04/25/20 19:00 07:00 Intake Total 1587.83 ml 1244.494 ml Output Total 1530 ml 640 ml Balance 57.83 ml 604.494 ml IV Total 767.83 ml 794.494 ml Tube Feeding 600 ml 450 ml Other 220 ml Output Urine Total 1530 ml 640 ml Laboratory Tests 04/25/20 03:40: Triglycerides Level 195H Height (Feet): 5 Height (Inches): 10.00 Weight (Pounds): 240 General Appearance: no apparent distress EENT: normal ENT inspection Neck: supple Cardiovascular: normal rate Respiratory/Chest: decreased breath sounds Abdomen: normal bowel sounds, non tender, soft Extremities: non-tender Assessment/Plan Status: not improved, unchanged Assessment/Plan: hep c + but neg RNA OGTF reglan 10 mg tolerating TF small BM repeat labs fu LFTS>>>improving will Da Wilson MD Apr 25, 2020 06:43
--- NOTE | 2020-04-25 07:27 | NUR ---
NURSE HAND-OFF REPORT: Latest Vital Signs: Temperature 98.6 , Pulse 58 , B/P 110 /58 , Respiratory Rate 18 , O2 SAT 97 , Mechanical Ventilator, O2 Flow Rate . Vital Sign Comment: EKG Rhythm: Sinus Rhythm Rhythm change?: N Notified?: N -Dr.Toluie INTERIANO Response: Message left await call Latest Hassan Fall Score: 50 Fall Risk: High Risk Safety Measures: Call light Within Reach, Bed Alarm Zone 3, Side Rails Side Rails x3, Bed position Low and Locked. Fall Precautions: Yellow Socks Yellow Gown Door Sign Patient Fall Education Report given to .
[2020-04-25] MEDS: Lansoprazole 15mg cap GT SCH ×2 (08:28→20:37)
[2020-04-25] MEDS: fentaNYL 2500mcg/NS 250ml 250 ML IV SCH ×3 (08:30→17:05)
--- NOTE | 2020-04-25 08:30 | NUR ---
NURSE NOTES: FiO2 decreased to 50%. Pt tolerating well. O2sat 100% at this time.
[2020-04-25] MEDS: Enoxaparin 80mg Inj SUBQ SCH ×2 (08:35→20:38)
[2020-04-25] MEDS: Bactrim-DS 1 tab ORAL SCH (08:36)
--- NOTE | 2020-04-25 08:38 | NUR ---
NURSE NOTES: Received pt and report from PRIYANKA Hayden. Pt is resting on the bed, Sedated RASS -2, awakens to voice. HR currently 67bpm on air sampling and monitoring. Pt is orally intubated ETT 8.0, 26cm @ the lip line. Vent settings: AC 18, TV 750, Fio2 55%, peep of 5, and O2sat is at 98%. no s/s of respiratory distress at this time. Pt has OGT, running Glucerna 1.5 at 50ml/hr, no residual noted. Rectal tube is in place, brown BM noted, no leakage noted. Brownlee catheter is noted, draining well with gravity to urometer. Left arm skin tear noted, optifoam in place for protection. Right upper arm PICC line noted, dressing site intact, clean, and patent. Fetanyl is running at 300mcg/hr, Versed 20mg/hr, and Propofol 15mcg/kg/min. Call light within reach. bed at the lowest position, alarmed, and locked. Will resume plan of care.
--- NOTE | 2020-04-25 08:40 | NUR ---
RADIOLOGY DEPT., CHEST X-RAY DONE.-P.DYE
[2020-04-25] MEDS: Solu-MEDROL 40mg Inj IVP SCH ×2 (09:03→20:37)
--- NOTE | 2020-04-25 10:00 | NUR ---
NURSE NOTES: O2sat dropped to 93% on 50% FiO2. Will monitor. Pt remains sedated on Fentanyl 300mcg/hr, Versed 20mg/hr, and Propofol 15mcg/kg/min.
--- NOTE | 2020-04-25 10:10 | NUR ---
RD ASSESSMENT & RECOMMENDATIONS SEE CARE ACTIVITY FOR COMPLETE ASSESSMENT DAILY ESTIMATED NEEDS: Needs based on Critical care, wound 81kg abw 22-28 kcals/kg 4532-3103 total kcals 1.25-1.5 g protein/kg 101-122 g total protein 25-30 mL/kg 3181-4228 total fluid mLs NUTRITION DIAGNOSIS: * Inadequate oral intake R/T clinical and respiratory status as evidenced by COVID-19 ++, on continuous BIPAP, prolonged meal refusals, pt is now on TPN, pt is now orally intubated (03/28), now on OGT feeds. * Decreased sodium and fat needs r/t HTN and obesity as evidenced by pt w/ cardiac history, elev BP (159/98-> now improved, on BP meds and diuretics), BMI >30, obese per guidelines. (INACTIVE) CURRENT DIET:. CURRENT TF:Glucerna 1.5 goal of 50 + Prosource BID ENTERAL NUTRITION RECOMMENDATIONS: Glucerna 1.5 @ 50ml/hr x 24 hrs + Prosource 1pkt BID to provide 1200ml, 1800kcal, 99g prot, 926ml free water * Maintain current TF @ goal as tolerated * Con't Prosource 1pkt BID (additional 22g prot) to better meet est prot needs. -> with current propofol rate (9.798ml/hr) provide additional 259ml/hr, total kcal intake now 2059kcal/day, within est needs. ADDITIONAL RECOMMENDATIONS: 1) Maintain calibrated bedscale wts 2) Obtain HgA1C for eval 3) Pt now w/ rectal tube-> lactulose now dc'ed, rec probiotics 4) Off tpn, LFT's trending down. 5) Monitor lytes, replete as needed/ phos elev 04/22, monitor trend 6) Monitor BGs- improved 7) On propofol, trend triglycerides/ need for TF rate change.
--- NOTE | 2020-04-25 10:19 | Nephrology Progress Note ---
Assessment/Plan Problem List: (1) Dehydration (2) Electrolyte imbalance (3) COVID-19 virus infection (4) Pneumonia (5) DMII (diabetes mellitus, type 2) (6) Protein malnutrition Assessment Azotemia, hypernatremia Hypoalbuminemia Staff Otilia bacteremia COVID-19 isolation, pneumonia, bilateral infiltrate Hypertension Diabetes mellitus History of smoking Plan April 25: Status quo. Full code. FiO2 55%. No labs drawn today. Continue to monitor electrolytes and renal parameters. Continue per consultants. April 24: Status quo. Full code. Intubated on ventilator. FiO2 65%. Labs reviewed. Renal parameters and electrolytes stable. April 23: Status unchanged. Full code. Intubated on ventilator. FiO2 75%. Labs reviewed. Renal parameters stable. Continue per consultants. April 22: Labs reviewed. Patient remains intubated on ventilator and full code. FiO2 90%. Day 77 hospitalization. Not much to add from renal standpoint of view April 21: No CHEM panel drawn today. FiO2 60%. Patient full code. Continue per consultants. April 20: Labs reviewed. Renal parameters stable. Patient remains full code. Intubated on ventilator with FiO2 currently at 70%. Continue per consultants. April 19: No labs drawn today. Remains full code on FiO2 of 100%. Continue per consultants. April 18: Status quo. Labs reviewed. Renal parameters stable. April 17: Status quo. Intubated on ventilator. Full code. Labs reviewed. Electrolytes and renal parameters stable. Continue per consultants. April 16: Girlfriend in the room. Patient awake. Intubated. Full code. Labs reviewed. Abnormal electrolyte addressed. Continue per consultants. April 15: Labs reviewed. Electrolytes and renal parameters stable. Patient full code. Continues to be intubated on ventilator. April 14: Status quo. Labs reviewed. Remains intubated on ventilator. Full code. Continue per consultants. April 13: Status quo. Labs reviewed. Renal parameters electrolytes stable. Continue per current treatment plan. April 12: On higher FiO2. Will resume Lasix daily. Continue to monitor electrolytes and renal parameters. Per consultants. April 11: FiO2 went up to 85%. Renal parameters and electrolytes reasonably well-maintained. Will monitor serum potassium. Will give IV Lasix. April 10: Status quo. Labs reviewed. Remains intubated on ventilator with FiO2 of 65%. Remains full code. Stable from renal standpoint to view. Repeat vitamin D level on April 08 pending April 09: Status quo. Labs reviewed. Stable from renal standpoint of view. Continue per consultants. April 08: Discussed with RN. Labs reviewed. Clinically improving. Requires lower PEEP. Continue per pulmonary. Continue to monitor renal parameters. April 07: Remains full code and on ventilator. Labs reviewed. Renal parameters and electrolytes stable. Continue per consultants. Blood pressure marginally improved. April 06: Full code. On ventilator. Blood pressure 80-90 systolic. IV Lasix discontinued. Free water through tube feeding ordered. Continue to monitor electrolytes and serum sodium. Down on fentanyl as possible. Discussed with RN Kevin. Clonidine patch discontinued. April 05: Status quo. Remains full code. Remains intubated. Labs reviewed. Renal parameters stable. Serum sodium 150 unchanged. Continue per consultants. April 04: Remains intubated and on ventilator. Remains full code. Labs reviewed. Serum sodium 150 unchanged. Renal parameters stable. Continue per ID and pulmonary. April 03: Intubated. On ventilator. Full code. Labs reviewed. Serum sodium 150 unchanged. Continue to monitor renal parameters. Continue per pulmonary and ID. April 02: Full code. On ventilator. Discussed with RN. Serum sodium slightly higher. Will cut down on IV Lasix. Continue per consultants. Continue to monitor renal parameters and electrolytes. April 01: Full code. Remains on ventilator. Labs reviewed. Stable from renal standpoint of view. Continue per consultants. March 31: Full code . Remains intubated on ventilator. Labs reviewed. Patient appears toxic. Discussed with RN. Maintenance IV discontinued. Medication list reviewed. Blood pressure medication stopped due to low blood pressure. Levemir insulin stopped. Continue monitor blood sugar and sliding scale insulin. March 30: Full code. On ventilator. Labs reviewed. Clonidine patch dose increased. Lasix increased. 3% saline 1 time ordered. Continue to monitor electrolytes and renal parameters. March 29: Remains full code. On mechanical ventilation. On tube feeding. Will DC TPN. Will start on maintenance IV fluid. Continue to monitor renal parameters. March 28: On BiPAP. Full code. On TPN. Labs reviewed. Discussed with pharmacy. Continue as is. Watch serum potassium. March 27: Remains on BiPAP. No chemistry panel done today. Full code. On TPN. Will check lab tomorrow. March 26: Remains on BiPAP. Remains on TPN. Labs reviewed. Electrolytes and chemistries within normal limits. Continue as is. March 25: Remains on TPN. Labs reviewed. Discussed with pharmacy. Change IV Protonix to p.o. Continue 3% saline infusion with Lasix. Patient full code. March 24: Continue to be on TPN. Labs are reviewed. Aim to collect electrolytes. Discussed with pharmacy. Continue current consultants. March 23: Continues to be on TPN. Labs reviewed. Electrolytes and chemistries all acceptable. Discussed with pharmacy. Continue current man agement. March 22: On TPN. Labs reviewed. Low sodium noted. 3% saline to be continued. Continue to monitor electrolytes. Discussed with pharmacy. March 21: On TPN. Labs reviewed. Continue 3% saline and Lasix for mild hyponatremia. Continue TPN as these. Discussed with pharmacy. March 20: Remains on TPN. Labs reviewed. Serum sodium higher on IV Lasix and 3% saline infusion. Continue TPN as is. Continue to monitor renal parameters and electrolytes. Discussed with Dr. Mata March 19: Remains on TPN. Labs reviewed. Serum sodium 128. Will give 3% saline with IV Lasix. Continue to monitor electrolytes. No change in TPN composition. Discussed with pharmacy. March 18: Remains on TPN. Labs reviewed. Discussed with pharmacist. Will g ria 3 doses of IV Lasix 20 mg every 8 hours. Continue to monitor serum sodium electrolytes uric acid. White blood cells down. Continue per consultants. March 17: On TPN. Labs reviewed. Discussed with pharmacist. Sodium content increase. Continue to monitor CMP. Patient continues to have leukocytosis. March 16: On TPN. Labs reviewed. Discussed with pharmacist. Appropriate changes made. Continue to monitor electrolytes. March 15: Remains on TPN. Labs reviewed. Discussed with pharmacist. Anahi lujan per current management. March 14: Remains on TPN. Labs reviewed, stable. Vitamin D level low, replacement ordered. Continue to monitor electrolytes and renal parameters. March 13: Patient remains on TPN. Discussed with pharmacist. TPN's sodium content adjusted. Labs reviewed. Continue to monitor electrolytes. Blood pressure remains stable. Continue per consultants. March 12: Patient on TPN. Labs reviewed. CPK remains elevated. Abnormal electrolytes and high blood sugar discussed with pharmacist and TPN adjusted. Continue to monitor labs. Oral Protonix added. Ibuprofen discontinued. Can continue to monitor electrolytes and chemistries. Levemir for high blood sugar added. March 11: Patient on TPN. Labs as of 11:15 AM is still pending. Continue per current treatment plan. Will check labs and adjust TPN as needed. Continue per consultants. March 10: Patient on TPN. Labs reviewed. Electrolytes overall stable. CPK is elevated. Will monitor electrolyte, CPK level, lipid panel. Continue per consultants. Discussed with pharmacist. Discussed with RN. Nutritional evaluation noted. Previously: D5W 100 cc an hour Monitor electrolytes renal parameters TPN and Intralipid ordered Will follow Continue per consultants Dietary consult requested Subjective ROS Limited/Unobtainable: Yes Objective Objective Last 24 Hour Vital Signs Date Time Temp Pulse Resp B/P (MAP) Pulse Ox O2 Delivery O2 Flow Rate FiO2 04/25/20 09:00 77 18 129/56 (80) 91 04/25/20 08:30 18 108/57 Mechanical Ventilator 55 04/25/20 08:00 Mechanical Ventilator 04/25/20 08:00 55 04/25/20 08:00 98.4 60 18 107/58 (74) 93 04/25/20 07:30 56 18 107/56 (73) 98 04/25/20 07:00 56 18 108/57 (74) 98 04/25/20 06:45 58 18 110/58 (75) 97 04/25/20 06:30 59 18 112/59 (76) 96 04/25/20 06:28 18 106/59 Mechanical Ventilator 55 04/25/20 06:00 18 106/59 Mechanical Ventilator 55 04/25/20 06:00 18 106/59 Mechanical Ventilator 55 04/25/20 06:00 59 18 104/56 (72) 94 04/25/20 05:59 21 105/60 Mechanical Ventilator 55 04/25/20 05:30 62 18 96/55 (69) 93 04/25/20 05:28 18 94/53 Mechanical Ventilator 55 04/25/20 05:00 63 18 97/54 (68) 93 04/25/20 05:00 18 94/53 Mechanical Ventilator 55 04/25/20 05:00 18 94/53 Mechanical Ventilator 55 04/25/20 04:30 70 18 95/50 (65) 94 04/25/20 04:28 18 98/53 Mechanical Ventilator 55 04/25/20 04:13 21 110/53 Mechanical Ventilator 55 04/25/20 04:00 71 04/25/20 04:00 87 19 110/53 (72) 94 04/25/20 04:00 Mechanical Ventilator 04/25/20 04:00 18 98/53 Mechanical Ventilator 55 04/25/20 04:00 18 98/53 Mechanical Ventilator 55 04/25/20 04:00 55 04/25/20 03:58 29 143/71 Mechanical Ventilator 55 04/25/20 03:43 42 197/84 Mechanical Ventilator 55 04/25/20 03:30 111 30 143/71 (95) 94 04/25/20 03:00 113 22 50 04/25/20 03:00 113 26 172/71 (104) 93 04/25/20 03:00 24 197/84 Mechanical Ventilator 55 04/25/20 03:00 24 197/84 Mechanical Ventilator 55 04/25/20 02:30 96 22 180/71 (107) 94 04/25/20 02:04 176/80 04/25/20 02:00 89 19 176/87 (116) 91 04/25/20 02:00 23 184/86 Mechanical Ventilator 55 04/25/20 02:00 23 184/86 Endotracheal Tube 55 04/25/20 01:30 78 19 173/75 (107) 89 04/25/20 01:00 21 178/91 Mechanical Ventilator 55 04/25/20 01:00 22 175/80 Mechanical Ventilator 55 04/25/20 01:00 86 22 182/94 (123) 91 04/25/20 00:58 22 178/81 Mechanical Ventilator 55 04/25/20 00:45 86 19 178/91 (120) 92 04/25/20 00:30 91 20 192/92 (125) 89 04/25/20 00:00 85 04/25/20 00:00 55 04/25/20 00:00 18 187/89 Mechanical Ventilator 55 04/25/20 00:00 21 187/89 Mechanical Ventilator 04/25/20 00:00 98.6 60 18 135/59 (84) 93 04/25/20 00:00 Mechanical Ventilator 04/24/20 23:52 23 125/56 50 04/24/20 23:30 58 18 118/59 (78) 91 04/24/20 23:10 51 18 50 04/24/20 23:00 55 18 124/67 (86) 96 04/24/20 23:00 21 124/65 Mechanical Ventilator 55 04/24/20 23:00 20 124/65 Mechanical Ventilator 55 04/24/20 23:00 50 04/24/20 22:30 60 18 120/65 (83) 95 04/24/20 22:00 21 126/65 Mechanical Ventilator 55 04/24/20 22:00 18 126/65 Mechanical Ventilator 55 04/24/20 22:00 60 18 114/56 (75) 94 04/24/20 21:30 52 18 125/65 (85) 96 04/24/20 21:00 57 18 118/59 (78) 93 04/24/20 21:00 18 113/60 Mechanical Ventilator 55 04/24/20 21:00 18 113/60 Mechanical Ventilator 55 04/24/20 20:30 58 18 133/70 (91) 93 04/24/20 20:15 54 18 119/62 (81) 98 04/24/20 20:00 98.0 56 18 112/57 (75) 98 04/24/20 20:00 Mechanical Ventilator 04/24/20 20:00 18 119/62 Mechanical Ventilator 55 04/24/20 20:00 18 113/60 Mechanical Ventilator 55 04/24/20 19:45 57 18 113/58 (76) 97 04/24/20 19:30 59 18 128/63 (84) 98 04/24/20 19:00 18 121/62 Mechanical Ventilator 55 04/24/20 19:00 18 121/62 Mechanical Ventilator 55 04/24/20 19:00 63 18 55 04/24/20 19:00 62 18 121/62 (81) 95 04/24/20 18:37 18 129/65 Mechanical Ventilator 55 04/24/20 18:00 83 19 166/80 (108) 93 04/24/20 18:00 18 129/71 Mechanical Ventilator 55 04/24/20 18:00 18 129/71 Mechanical Ventilator 55 04/24/20 17:00 76 16 151/67 (95) 93 04/24/20 17:00 18 157/79 Mechanical Ventilator 55 04/24/20 17:00 18 157/79 Mechanical Ventilator 55 04/24/20 16:00 82 04/24/20 16:00 Mechanical Ventilator 04/24/20 16:00 55 04/24/20 16:00 98.9 82 17 150/63 (92) 96 04/24/20 16:00 18 150/63 Mechanical Ventilator 55 04/24/20 16:00 18 150/63 Mechanical Ventilator 55 04/24/20 15:20 51 18 55 04/24/20 15:15 18 112/59 Mechanical Ventilator 60 04/24/20 15:00 52 18 112/59 (76) 99 04/24/20 15:00 18 112/59 Mechanical Ventilator 60 04/24/20 15:00 18 112/59 Mechanical Ventilator 60 04/24/20 14:30 53 18 111/56 (74) 98 04/24/20 14:00 20 115/60 Mechanical Ventilator 60 04/24/20 14:00 20 115/60 Mechanical Ventilator 60 04/24/20 14:00 53 18 115/60 (78) 99 04/24/20 13:30 53 18 112/58 (76) 98 04/24/20 13:00 18 112/58 Mechanical Ventilator 60 04/24/20 13:00 18 112/58 Mechanical Ventilator 60 04/24/20 13:00 54 18 113/58 (76) 97 04/24/20 12:30 54 18 114/60 (78) 96 04/24/20 12:30 20 118/61 Mechanical Ventilator 60 04/24/20 12:00 98.0 55 18 118/59 (78) 95 04/24/20 12:00 18 118/61 Mechanical Ventilator 60 04/24/20 12:00 18 118/61 Mechanical Ventilator 60 04/24/20 12:00 Mechanical Ventilator 04/24/20 12:00 60 04/24/20 12:00 55 04/24/20 11:00 53 18 125/68 (87) 99 04/24/20 11:00 18 122/64 Mechanical Ventilator 60 04/24/20 11:00 18 122/64 Mechanical Ventilator 60 04/24/20 10:56 56 18 60 04/24/20 10:30 61 18 106/60 (75) 97 Intake and Output 04/24/20 04/25/20 19:00 07:00 Intake Total 1587.83 ml 1430.3796 ml Output Total 1530 ml 840 ml Balance 57.83 ml 590.3796 ml IV Total 767.83 ml 830.3796 ml Tube Feeding 600 ml 600 ml Other 220 ml Output Urine Total 1530 ml 840 ml Current Medications Medications (Trade) Dose Ordered Sig/Dennis Route PRN Reason Start Time Stop Time Status Last Admin Dose Admin Acetaminophen (Tylenol) 650 mg Q4H PRN ORAL Temp >100.5 04/13/20 00:30 05/13/20 00:29 04/13/20 01:30 Bisacodyl (Dulcolax) 10 mg Q12H PRN RECTAL Constipation 03/18/20 16:45 06/16/20 16:44 Chlorhexidine Gluconate (Marlen-Hex 2%) 1 applic DAILY@2000 TOPIC 03/30/20 20:00 06/28/20 19:59 04/24/20 19:53 Dextrose (Dextrose 50%) 25 ml Q30M PRN IV Hypoglycemia 03/29/20 20:45 06/27/20 20:44 Dextrose (Dextrose 50%) 50 ml Q30M PRN IV Hypoglycemia 03/29/20 20:45 06/27/20 20:44 Enoxaparin Sodium (Lovenox) 80 mg EVERY 12 HOURS SUBQ 04/06/20 21:00 07/05/20 20:59 04/25/20 08:35 Fentanyl Citrate 250 ml @ 1 mls/hr Q24H IV 04/23/20 13:00 04/25/20 12:59 04/25/20 08:30 Hydralazine HCl (Apresoline) 10 mg Q4H PRN IV For High Blood Pressure 03/30/20 12:15 06/28/20 12:14 04/25/20 02:04 Insulin Aspart (NovoLOG) Q6HR SUBQ 03/30/20 00:00 06/28/20 00:00 04/20/20 23:34 Labetalol HCl (Normodyne) 10 mg Q4H PRN IV sbp greater tahtn 160 03/28/20 17:30 04/27/20 17:29 04/21/20 06:02 Lansoprazole (Prevacid) 15 mg Q12HR GT 04/20/20 21:00 05/20/20 20:59 04/25/20 08:28 Methylprednisolone Sodium Succinate (Solu-MEDROL) 20 mg Q12HR IVP 04/12/20 21:00 06/20/20 20:59 04/25/20 09:03 Metoclopramide HCl (Reglan) 10 mg Q6H IVP 03/30/20 15:00 04/29/20 14:59 04/25/20 08:28 Midazolam HCl 200 ml @ 0 mls/hr Q24H PRN IV SEDATION 04/25/20 01:00 05/02/20 00:29 04/25/20 05:59 Morphine Sulfate (Morphine Sulfate) 4 mg Q6H PRN IVP agitation despite sedating med 04/21/20 12:45 04/28/20 12:44 04/25/20 00:36 Propofol 100 ml @ 3.266 mls/ hr Q12H IV 04/25/20 03:30 04/27/20 03:29 04/25/20 03:43 Trimethoprim/ Sulfamethoxazole (Bactrim-DS) 1 tab DAILY ORAL 04/23/20 20:00 05/23/20 19:59 04/25/20 08:36 Laboratory Tests 04/25/20 03:40: Triglycerides Level 195H Height (Feet): 5 Height (Inches): 10.00 Weight (Pounds): 240 General Appearance: no apparent distress EENT: other - Intubated on ventilator Cardiovascular: normal rate Respiratory/Chest: decreased breath sounds Abdomen: distended Rubin Cooper MD Apr 25, 2020 10:19
--- NOTE | 2020-04-25 12:00 | NUR ---
NURSE NOTES: Pt turned and repositioned. Oral care done. BS 122. No insulin given, per sliding scale.
--- NOTE | 2020-04-25 13:02 | Anethesia Preoperative Eval ---
Anesthesia Pre-op PMH/ROS General Date of Evaluation: Apr 25, 2020 Time of Evaluation: 12:55 Anesthesiologist: Fredi ASA Score: ASA 4 Mallampati Score Class I : Soft palate, uvula, fauces, pillars visible Class II: Soft palate, uvula, fauces visible Class III: Soft palate, base of uvula visible Class IV: Only hard plate visible Mallampati Classification: Class III Surgeon: Lex Diagnosis: Respiratory failure Surgical Procedure: Traceostomy Anesthesia History: none Social History: smoking - h/o Family History: no anesthesia problems Allergies: Coded Allergies: No Known Allergies (Unverified , 02/05/20) Patient NPO?: Yes Past Medical History Cardiovascular: Reports: HTN; Denies: CAD, [place], valve dz, arrhythmia, other Pulmonary: Reports: other - Covid pneumonia, respiratory failure, vent dependent; Denies: asthma, COPD, MONIE Gastrointestinal/Genitourinary: Reports: GERD; Denies: CRI, ESRD, other Neurologic/Psychiatric: Reports: other - medicaly induced coma; Denies: dementia, CVA, depression/anxiety, TIA Endocrine: Reports: hypothyroidism; Denies: DM, steroids, other HEENT: Denies: cataract (L), cataract (R), glaucoma, [place] (L), [place] (R), other Hematology/Immune: Reports: anemia - of chronic d-s, DVT - h/o anticoagulated Musculoskeletal/Integumentary: Denies: OA, RA, DJD, DDD, edema, other Other: other - malnourished, significant weight loss PMH Narrative: as above PSxH Narrative: see H&P Anesthesia Pre-op Phys. Exam Physician Exam Last Vital Signs Date Time Temp Pulse Resp B/P (MAP) Pulse Ox O2 Delivery O2 Flow Rate FiO2 04/25/20 12:27 18 124/61 Mechanical Ventilator 55 04/25/20 12:00 98.4 66 92 Constitutional: NAD Neurologic: other - unable to obtaine Cardiovascular: RRR Respiratory: other - diminished breath sounds bilateraly FiO2 down to 50%, SA TURATION IN LOW 90 Gastrointestinal: S/NT/ND Airway Exam Mallampati Score: Class III - oraly intubated MO: limited Neck: stiff ROM: limited Teeth: missing Dentures: no upper, no lower Anesthesia Pre-op A/P Labs Chemistry Test 04/25/20 03:40 Triglycerides Level 195 MG/DL (30-150) H Risk Assessment & Plan Assessment: ASA 4 Plan: GA with ETT Status Change Before Surgery: No Pre-Antibiotics Drug: as scheduled Tony Rai MD Apr 25, 2020 13:02
--- NOTE | 2020-04-25 13:19 | Pulmonology Progress Note ---
Subjective ROS Limited/Unobtainable: Yes Interval Events: Intubated 03/28/20; Desaturated overnight, started propofol Constitutional: Reports: other - on vent, bp stable, fio2-down to 70%; Denies: fever HEENT: Repors: no symptoms Respiratory: Reports: dry cough, shortness of breath Cardiovascular: Reports: no symptoms Gastrointestinal/Abdominal: Denies: nausea, vomiting, diarrhea Psychiatric: Reports: other - NA Skin: Denies: rash Musculoskeletal: Reports: other - NA Allergies: Coded Allergies: No Known Allergies (Unverified , 02/05/20) Objective Last 24 Hour Vital Signs Date Time Temp Pulse Resp B/P (MAP) Pulse Ox O2 Delivery O2 Flow Rate FiO2 04/25/20 12:27 18 124/61 Mechanical Ventilator 55 04/25/20 12:23 18 124/61 Mechanical Ventilator 55 04/25/20 12:00 98.4 66 18 118/61 (80) 92 04/25/20 12:00 55 04/25/20 11:30 67 18 125/62 (83) 92 04/25/20 11:00 70 18 124/60 (81) 93 04/25/20 10:00 71 18 128/67 (87) 93 04/25/20 10:00 18 132/70 Mechanical Ventilator 50 04/25/20 10:00 18 132/70 Mechanical Ventilator 50 04/25/20 10:00 18 132/70 Mechanical Ventilator 50 04/25/20 09:00 77 18 129/56 (80) 91 04/25/20 09:00 18 130/58 Mechanical Ventilator 50 04/25/20 09:00 18 130/58 Mechanical Ventilator 50 04/25/20 09:00 18 130/58 Mechanical Ventilator 50 04/25/20 08:30 18 108/57 Mechanical Ventilator 55 04/25/20 08:00 Mechanical Ventilator 04/25/20 08:00 55 04/25/20 08:00 18 108/57 Mechanical Ventilator 55 04/25/20 08:00 18 108/57 Mechanical Ventilator 55 04/25/20 08:00 18 108/57 Mechanical Ventilator 55 04/25/20 08:00 98.4 60 18 107/58 (74) 93 04/25/20 08:00 60 04/25/20 07:30 56 18 107/56 (73) 98 04/25/20 07:00 18 108/57 Mechanical Ventilator 55 04/25/20 07:00 18 108/57 Mechanical Ventilator 55 04/25/20 07:00 18 108/57 Mechanical Ventilator 55 04/25/20 07:00 56 18 108/57 (74) 98 04/25/20 06:45 58 18 110/58 (75) 97 04/25/20 06:30 59 18 112/59 (76) 96 04/25/20 06:28 18 106/59 Mechanical Ventilator 55 04/25/20 06:00 18 106/59 Mechanical Ventilator 55 04/25/20 06:00 18 106/59 Mechanical Ventilator 55 04/25/20 06:00 59 18 104/56 (72) 94 04/25/20 05:59 21 105/60 Mechanical Ventilator 55 04/25/20 05:30 62 18 96/55 (69) 93 04/25/20 05:28 18 94/53 Mechanical Ventilator 55 04/25/20 05:00 63 18 97/54 (68) 93 04/25/20 05:00 18 94/53 Mechanical Ventilator 55 04/25/20 05:00 18 94/53 Mechanical Ventilator 55 04/25/20 04:30 70 18 95/50 (65) 94 04/25/20 04:28 18 98/53 Mechanical Ventilator 55 04/25/20 04:13 21 110/53 Mechanical Ventilator 55 04/25/20 04:00 71 04/25/20 04:00 87 19 110/53 (72) 94 04/25/20 04:00 Mechanical Ventilator 04/25/20 04:00 18 98/53 Mechanical Ventilator 55 04/25/20 04:00 18 98/53 Mechanical Ventilator 55 04/25/20 04:00 55 04/25/20 03:58 29 143/71 Mechanical Ventilator 55 04/25/20 03:43 42 197/84 Mechanical Ventilator 55 04/25/20 03:30 111 30 143/71 (95) 94 04/25/20 03:00 113 22 50 04/25/20 03:00 113 26 172/71 (104) 93 04/25/20 03:00 24 197/84 Mechanical Ventilator 55 04/25/20 03:00 24 197/84 Mechanical Ventilator 55 04/25/20 02:30 96 22 180/71 (107) 94 04/25/20 02:04 176/80 04/25/20 02:00 89 19 176/87 (116) 91 04/25/20 02:00 23 184/86 Mechanical Ventilator 55 04/25/20 02:00 23 184/86 Endotracheal Tube 55 04/25/20 01:30 78 19 173/75 (107) 89 04/25/20 01:00 21 178/91 Mechanical Ventilator 55 04/25/20 01:00 22 175/80 Mechanical Ventilator 55 04/25/20 01:00 86 22 182/94 (123) 91 04/25/20 00:58 22 178/81 Mechanical Ventilator 55 04/25/20 00:45 86 19 178/91 (120) 92 04/25/20 00:30 91 20 192/92 (125) 89 04/25/20 00:00 85 04/25/20 00:00 55 04/25/20 00:00 18 187/89 Mechanical Ventilator 55 04/25/20 00:00 21 187/89 Mechanical Ventilator 04/25/20 00:00 98.6 60 18 135/59 (84) 93 04/25/20 00:00 Mechanical Ventilator 04/24/20 23:52 23 125/56 50 04/24/20 23:30 58 18 118/59 (78) 91 04/24/20 23:10 51 18 50 04/24/20 23:00 55 18 124/67 (86) 96 04/24/20 23:00 21 124/65 Mechanical Ventilator 55 04/24/20 23:00 20 124/65 Mechanical Ventilator 55 04/24/20 23:00 50 04/24/20 22:30 60 18 120/65 (83) 95 04/24/20 22:00 21 126/65 Mechanical Ventilator 55 04/24/20 22:00 18 126/65 Mechanical Ventilator 55 04/24/20 22:00 60 18 114/56 (75) 94 04/24/20 21:30 52 18 125/65 (85) 96 04/24/20 21:00 57 18 118/59 (78) 93 04/24/20 21:00 18 113/60 Mechanical Ventilator 55 04/24/20 21:00 18 113/60 Mechanical Ventilator 55 04/24/20 20:30 58 18 133/70 (91) 93 04/24/20 20:15 54 18 119/62 (81) 98 04/24/20 20:00 98.0 56 18 112/57 (75) 98 04/24/20 20:00 Mechanical Ventilator 04/24/20 20:00 18 119/62 Mechanical Ventilator 55 04/24/20 20:00 18 113/60 Mechanical Ventilator 55 04/24/20 19:45 57 18 113/58 (76) 97 04/24/20 19:30 59 18 128/63 (84) 98 04/24/20 19:00 18 121/62 Mechanical Ventilator 55 04/24/20 19:00 18 121/62 Mechanical Ventilator 55 04/24/20 19:00 63 18 55 04/24/20 19:00 62 18 121/62 (81) 95 04/24/20 18:37 18 129/65 Mechanical Ventilator 55 04/24/20 18:00 83 19 166/80 (108) 93 04/24/20 18:00 18 129/71 Mechanical Ventilator 55 04/24/20 18:00 18 129/71 Mechanical Ventilator 55 04/24/20 17:00 76 16 151/67 (95) 93 04/24/20 17:00 18 157/79 Mechanical Ventilator 55 04/24/20 17:00 18 157/79 Mechanical Ventilator 55 04/24/20 16:00 82 04/24/20 16:00 Mechanical Ventilator 04/24/20 16:00 55 04/24/20 16:00 98.9 82 17 150/63 (92) 96 04/24/20 16:00 18 150/63 Mechanical Ventilator 55 04/24/20 16:00 18 150/63 Mechanical Ventilator 55 04/24/20 15:20 51 18 55 04/24/20 15:15 18 112/59 Mechanical Ventilator 60 04/24/20 15:00 52 18 112/59 (76) 99 04/24/20 15:00 18 112/59 Mechanical Ventilator 60 04/24/20 15:00 18 112/59 Mechanical Ventilator 60 04/24/20 14:30 53 18 111/56 (74) 98 04/24/20 14:00 20 115/60 Mechanical Ventilator 60 04/24/20 14:00 20 115/60 Mechanical Ventilator 60 04/24/20 14:00 53 18 115/60 (78) 99 04/24/20 13:30 53 18 112/58 (76) 98 Intake and Output 04/24/20 04/25/20 19:00 07:00 Intake Total 1587.83 ml 1430.3796 ml Output Total 1530 ml 840 ml Balance 57.83 ml 590.3796 ml IV Total 767.83 ml 830.3796 ml Tube Feeding 600 ml 600 ml Other 220 ml Output Urine Total 1530 ml 840 ml General Appearance: WD/WN, no acute distress HEENT: normocephalic, atraumatic Respiratory: chest wall non-tender Cardiovascular: normal rate, regular rhythm Abdomen: normal bowel sounds, soft, non tender, other - obese Laboratory Tests 04/25/20 03:40: Triglycerides Level 195H Current Medications Medications (Trade) Dose Ordered Sig/Dennis Route PRN Reason Start Time Stop Time Status Last Admin Dose Admin Acetaminophen (Tylenol) 650 mg Q4H PRN ORAL Temp >100.5 04/13/20 00:30 05/13/20 00:29 04/13/20 01:30 Bisacodyl (Dulcolax) 10 mg Q12H PRN RECTAL Constipation 03/18/20 16:45 06/16/20 16:44 Chlorhexidine Gluconate (Marlen-Hex 2%) 1 applic DAILY@2000 TOPIC 03/30/20 20:00 06/28/20 19:59 04/24/20 19:53 Dextrose (Dextrose 50%) 25 ml Q30M PRN IV Hypoglycemia 03/29/20 20:45 06/27/20 20:44 Dextrose (Dextrose 50%) 50 ml Q30M PRN IV Hypoglycemia 03/29/20 20:45 06/27/20 20:44 Enoxaparin Sodium (Lovenox) 80 mg EVERY 12 HOURS SUBQ 04/06/20 21:00 07/05/20 20:59 04/25/20 08:35 Hydralazine HCl (Apresoline) 10 mg Q4H PRN IV For High Blood Pressure 03/30/20 12:15 06/28/20 12:14 04/25/20 02:04 Insulin Aspart (NovoLOG) Q6HR SUBQ 03/30/20 00:00 06/28/20 00:00 04/20/20 23:34 Labetalol HCl (Normodyne) 10 mg Q4H PRN IV sbp greater tahtn 160 03/28/20 17:30 04/27/20 17:29 04/21/20 06:02 Lansoprazole (Prevacid) 15 mg Q12HR GT 04/20/20 21:00 05/20/20 20:59 04/25/20 08:28 Methylprednisolone Sodium Succinate (Solu-MEDROL) 20 mg Q12HR IVP 04/12/20 21:00 06/20/20 20:59 04/25/20 09:03 Metoclopramide HCl (Reglan) 10 mg Q6H IVP 03/30/20 15:00 04/29/20 14:59 04/25/20 08:28 Midazolam HCl 200 ml @ 0 mls/hr Q24H PRN IV SEDATION 04/25/20 01:00 05/02/20 00:29 04/25/20 12:23 Morphine Sulfate (Morphine Sulfate) 4 mg Q6H PRN IVP agitation despite sedating med 04/21/20 12:45 04/28/20 12:44 04/25/20 00:36 Propofol 100 ml @ 3.266 mls/ hr Q12H IV 04/25/20 03:30 04/27/20 03:29 04/25/20 12:27 Trimethoprim/ Sulfamethoxazole (Bactrim-DS) 1 tab DAILY ORAL 04/23/20 20:00 05/23/20 19:59 04/25/20 08:36 Assessment/Plan Assessment/Plan Assessment/Plan 1.COVID-19 pneumonia. - Completed specific therapies - On solumedrol 20 Iv q 12 2. DVT ppx - on lovenox 3. Hypertension - no longer on meds - Not requiring pressors 4. Leukocytosis; - ID following - Off abx - Candidemia documented 03/18/20 5. Elevated LFT - positive Hep C; treated in the past with IF 6. Respiratory failure -Intubated 03/28/20 -Family aware - Prognosis guarded - Vt 750; rate 18 -On sedation; added Morphine to Versed/fentanyl 7. Discussed with cardiology -No evidence for cardiac dysfunction or PE -tachycardic; will increase sedation 8. AMS -back on sedation - has apparent left arm paresis - Will consider CT brain when more stable S/p new PICC line Noted left upper extremity swelling. Has DVT; on full dose Lovenox Continue sedation, DC propofol given high triglycerides. Continue fentanyl and Versed. Saturations plummeted 04/20/20 when patient became agitated Now fully sedated on 80->100 ->90 ->80 -> 50% FiO2 ; PEEP 5 Intubated now for 2-3 weeks Discussed tracheostomy with surgery planned for tomorrow. Will wean down FiO2 as tolerated CXR shows bilateral interstitial changes? fibrosis? John Mata MD Apr 25, 2020 13:19
--- NOTE | 2020-04-25 14:00 | NUR ---
NURSE NOTES: Pt remains on 55% FiO2. O2sat 96%. No distress noted. Pt remains sedated.
--- NOTE | 2020-04-25 14:10 | NUR ---
INSURANCE CLINCALS/REVIEW FAXED TO [employer] T: [phone] #1 F: [phone] AND [employer]:JACQUELINE JAMES T: [phone] F: [phone]
--- NOTE | 2020-04-25 14:19 | Diagnostic Imaging Report ---
Procedure: XRAY Chest 1v Reason for study: Reason For Exam: SOB Comparison films: 04/21/2020. FINDINGS: Endotracheal tube, NG tube and right PICC line remain in place. Vascularity is normal. Bilateral infiltrates are unchanged. Cardiac and mediastinal silhouette are within normal limits. CP angles are sharp. The bony thorax appear unremarkable. IMPRESSION: NO SIGNIFICANT CHANGE COMPARED TO PREVIOUS EXAM.
--- NOTE | 2020-04-25 15:00 | NUR ---
NURSE NOTES: Dr Weinberg at bedside assessing pt. Updated him on pt's current condition.
--- NOTE | 2020-04-25 15:47 | Infectious Diseases Prog Note ---
Assessment/Plan Assessment/Plan ASSESSMENT AND PLAN: 1. staph aureus bacteremia/mssa, ? source, ? endocarditis, sepsis, leukocytosis, ? CAP, PJP less likely with HIV negative and steroids < 1 month covid-19 +, hypoxia, sob, chest x-ray worse, ? PE, ? HCAP/aspiration pna recurrent fevers - ? fungal, ? OI leukocytosis noted - ? new infection, ? steroids cocci serology negative, legionella negative, beta 1,3 D-glucan wnl, Il-16 - 13.7 elevated LFT's - ? TPN, ? Bactrim - US without gallbladder disease, + steatosis - d/w GI - TPN more likely than bactrim as etiology e.coli uti - s/p treatment with rocephin, s/p treatment for presumptive pneumocystis pna + yeast in blood, fungemia, ? line infection, line changed worsening respiratory status, ? new aspiration pna/hcap, ? sepsis ? fungal/cynthia uti vs colonization - s/p zosyn, surveillance cultures negative to date, discontinue vancomycin - s/p micafungin -(post negative blood cultures - 04/02/20) - on solumedrol - picc line changed - bactrim for pneumocystis prophylaxis, s/p pneumocystis treatment - s/p tx for mssa bacteremia and ? endocarditis - monitor hypoxia, labs and chest x-ray - guarded condition - plan on trach tomorrow - c.diff. negative 2. covid-19 isolation 3. Hypertension history. Blood pressure treatment primary care team. 4. Elevated blood sugars. Blood sugar treatment per primary care team. 5. No known drug allergies. 6. Social history is positive for smoking. 7. Family history is noncontributory. 8. MAR was noted. 9. Case was discussed with RN. 10. Continue treatment per primary consultants. Subjective Constitutional: Denies: fever HEENT: Reports: congestion Respiratory: Reports: shortness of breath Cardiovascular: Denies: chest pain Gastrointestinal/Abdominal: Denies: nausea, vomiting, diarrhea Genitourinary: Reports: other - + joseph Neurologic: Denies: headache Psychiatric: Denies: depression Skin: Denies: rash Hematologic: Denies: bleeding Musculoskeletal: Denies: pain Allergies: Coded Allergies: No Known Allergies (Unverified , 02/05/20) Objective Last 24 Hour Vital Signs Date Time Temp Pulse Resp B/P (MAP) Pulse Ox O2 Delivery O2 Flow Rate FiO2 04/25/20 15:00 18 122/67 Mechanical Ventilator 55 04/25/20 15:00 18 122/67 Mechanical Ventilator 55 04/25/20 15:00 18 122/67 Mechanical Ventilator 55 04/25/20 15:00 59 18 122/67 (85) 97 04/25/20 14:30 60 18 124/64 (84) 96 04/25/20 14:00 62 18 131/66 (87) 95 04/25/20 13:30 64 18 123/63 (83) 94 04/25/20 13:00 67 18 125/62 (83) 90 04/25/20 12:27 18 124/61 Mechanical Ventilator 55 04/25/20 12:23 18 124/61 Mechanical Ventilator 55 04/25/20 12:00 Mechanical Ventilator 04/25/20 12:00 66 04/25/20 12:00 98.4 66 18 118/61 (80) 92 04/25/20 12:00 55 04/25/20 11:30 67 18 125/62 (83) 92 04/25/20 11:00 70 18 124/60 (81) 93 04/25/20 10:00 71 18 128/67 (87) 93 04/25/20 10:00 18 132/70 Mechanical Ventilator 50 04/25/20 10:00 18 132/70 Mechanical Ventilator 50 04/25/20 10:00 18 132/70 Mechanical Ventilator 50 04/25/20 09:00 77 18 129/56 (80) 91 04/25/20 09:00 18 130/58 Mechanical Ventilator 50 04/25/20 09:00 18 130/58 Mechanical Ventilator 50 04/25/20 09:00 18 130/58 Mechanical Ventilator 50 04/25/20 08:30 18 108/57 Mechanical Ventilator 55 04/25/20 08:00 Mechanical Ventilator 04/25/20 08:00 55 04/25/20 08:00 18 108/57 Mechanical Ventilator 55 04/25/20 08:00 18 108/57 Mechanical Ventilator 55 04/25/20 08:00 18 108/57 Mechanical Ventilator 55 04/25/20 08:00 98.4 60 18 107/58 (74) 93 04/25/20 08:00 60 04/25/20 07:30 56 18 107/56 (73) 98 04/25/20 07:00 18 108/57 Mechanical Ventilator 55 04/25/20 07:00 18 108/57 Mechanical Ventilator 55 04/25/20 07:00 18 108/57 Mechanical Ventilator 55 04/25/20 07:00 56 18 108/57 (74) 98 04/25/20 06:45 58 18 110/58 (75) 97 04/25/20 06:30 59 18 112/59 (76) 96 04/25/20 06:28 18 106/59 Mechanical Ventilator 55 04/25/20 06:00 18 106/59 Mechanical Ventilator 55 04/25/20 06:00 18 106/59 Mechanical Ventilator 55 04/25/20 06:00 59 18 104/56 (72) 94 04/25/20 05:59 21 105/60 Mechanical Ventilator 55 04/25/20 05:30 62 18 96/55 (69) 93 04/25/20 05:28 18 94/53 Mechanical Ventilator 55 04/25/20 05:00 63 18 97/54 (68) 93 04/25/20 05:00 18 94/53 Mechanical Ventilator 55 04/25/20 05:00 18 94/53 Mechanical Ventilator 55 04/25/20 04:30 70 18 95/50 (65) 94 04/25/20 04:28 18 98/53 Mechanical Ventilator 55 04/25/20 04:13 21 110/53 Mechanical Ventilator 55 04/25/20 04:00 71 04/25/20 04:00 87 19 110/53 (72) 94 04/25/20 04:00 Mechanical Ventilator 04/25/20 04:00 18 98/53 Mechanical Ventilator 55 04/25/20 04:00 18 98/53 Mechanical Ventilator 55 04/25/20 04:00 55 04/25/20 03:58 29 143/71 Mechanical Ventilator 55 04/25/20 03:43 42 197/84 Mechanical Ventilator 55 04/25/20 03:30 111 30 143/71 (95) 94 04/25/20 03:00 113 22 50 04/25/20 03:00 113 26 172/71 (104) 93 04/25/20 03:00 24 197/84 Mechanical Ventilator 55 04/25/20 03:00 24 197/84 Mechanical Ventilator 55 04/25/20 02:30 96 22 180/71 (107) 94 04/25/20 02:04 176/80 04/25/20 02:00 89 19 176/87 (116) 91 04/25/20 02:00 23 184/86 Mechanical Ventilator 55 04/25/20 02:00 23 184/86 Endotracheal Tube 55 04/25/20 01:30 78 19 173/75 (107) 89 04/25/20 01:00 21 178/91 Mechanical Ventilator 55 04/25/20 01:00 22 175/80 Mechanical Ventilator 55 04/25/20 01:00 86 22 182/94 (123) 91 04/25/20 00:58 22 178/81 Mechanical Ventilator 55 04/25/20 00:45 86 19 178/91 (120) 92 04/25/20 00:30 91 20 192/92 (125) 89 04/25/20 00:00 85 04/25/20 00:00 55 04/25/20 00:00 18 187/89 Mechanical Ventilator 55 04/25/20 00:00 21 187/89 Mechanical Ventilator 04/25/20 00:00 98.6 60 18 135/59 (84) 93 04/25/20 00:00 Mechanical Ventilator 04/24/20 23:52 23 125/56 50 04/24/20 23:30 58 18 118/59 (78) 91 04/24/20 23:10 51 18 50 04/24/20 23:00 55 18 124/67 (86) 96 04/24/20 23:00 21 124/65 Mechanical Ventilator 55 04/24/20 23:00 20 124/65 Mechanical Ventilator 55 04/24/20 23:00 50 04/24/20 22:30 60 18 120/65 (83) 95 04/24/20 22:00 21 126/65 Mechanical Ventilator 55 04/24/20 22:00 18 126/65 Mechanical Ventilator 55 04/24/20 22:00 60 18 114/56 (75) 94 04/24/20 21:30 52 18 125/65 (85) 96 04/24/20 21:00 57 18 118/59 (78) 93 04/24/20 21:00 18 113/60 Mechanical Ventilator 55 04/24/20 21:00 18 113/60 Mechanical Ventilator 55 04/24/20 20:30 58 18 133/70 (91) 93 04/24/20 20:15 54 18 119/62 (81) 98 04/24/20 20:00 98.0 56 18 112/57 (75) 98 04/24/20 20:00 Mechanical Ventilator 04/24/20 20:00 18 119/62 Mechanical Ventilator 55 04/24/20 20:00 18 113/60 Mechanical Ventilator 55 04/24/20 19:45 57 18 113/58 (76) 97 04/24/20 19:30 59 18 128/63 (84) 98 04/24/20 19:00 18 121/62 Mechanical Ventilator 55 04/24/20 19:00 18 121/62 Mechanical Ventilator 55 04/24/20 19:00 63 18 55 04/24/20 19:00 62 18 121/62 (81) 95 04/24/20 18:37 18 129/65 Mechanical Ventilator 55 04/24/20 18:00 83 19 166/80 (108) 93 04/24/20 18:00 18 129/71 Mechanical Ventilator 55 04/24/20 18:00 18 129/71 Mechanical Ventilator 55 04/24/20 17:00 76 16 151/67 (95) 93 04/24/20 17:00 18 157/79 Mechanical Ventilator 55 04/24/20 17:00 18 157/79 Mechanical Ventilator 55 04/24/20 16:00 82 04/24/20 16:00 Mechanical Ventilator 04/24/20 16:00 55 04/24/20 16:00 98.9 82 17 150/63 (92) 96 04/24/20 16:00 18 150/63 Mechanical Ventilator 55 04/24/20 16:00 18 150/63 Mechanical Ventilator 55 Height (Feet): 5 Height (Inches): 10.00 Weight (Pounds): 240 General Appearance: no acute distress HEENT: normocephalic, atraumatic, anicteric Respiratory/Chest: crackles/rales, rhonchi - bilaterally Cardiovascular: normal rate, regular rhythm, no gallop/murmur, no JVD Abdomen: normal bowel sounds, soft, non tender, no organomegaly, non distended Genitourinary: other - no joseph Extremities: no cyanosis Skin: no rash Neurologic/Psychiatric: crepe maker II-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 The infiltrates are typical for Covid 19. No evidence of pulmonary embolus. CT abdomen and pelvis: IMPRESSION: 1. Scattered hepatic hypodense lesions, too small to characterize on this examination without intravenous contrast. 2. Colonic diverticulosis without evidence of acute diverticulitis. 3. Scattered enlarged mesenteric lymph nodes, presumably reactive. teral pneumonia. The infiltrates are typical for Covid 19. No evidence of pulmonary embolus. Chest x-ray - 12/19/19 - Indication: Shortness of breath Technique: One view of the chest Comparison: 02/17/2020 Findings: Interim worsening of bilateral infiltrates, particularly on the right. The heart is borderline enlarged. The pleural spaces are clear. Left arm PICC is again demonstrated Impression: Worsening bilateral infiltrates over one day, likely pneumonia CT chest - 02/19/20 - IMPRESSION: Increased extensive patchy ground-glass opacities and densities throughout the lungs, suggestive of Covid 19 infection. Chest x-ray 02/23/20 - Procedure: XRAY Chest 1v As Indication: Reason For Exam: INFECT Technique: One view of the chest Comparison: 02/20/2020 Findings: Allowing for differences in exposure technique, bilateral mid and lower lung infiltrates are probably unchanged. The heart size is normal. The pleural spaces are clear. Impression: Unchanged, over 4 days, findings as above. Chest x-ray - 02/25/20 - FINDINGS: Lungs: Interval slightly worsening bilateral airspace disease. Pleural space: Unremarkable. No pneumothorax. Heart: Unremarkable. No cardiomegaly. Mediastinum: Unremarkable. Bones/joints: Unremarkable. IMPRESSION: Interval slightly worsening bilateral airspace disease. Chest x-ray - 03/02/20 - Procedure: XRAY Chest 1v Indication: Shortness of breath Technique: One view of the chest Comparison: 02/25/2020 Findings: Bilateral interstitial and airspace infiltrates are unchanged. The heart size is normal. Left arm PICC is again demonstrated Impression: Unchanged, over one day, findings as above. Chest x-ray - 03/06/20 - Procedure: XRAY Chest 1v Indication: Shortness of breath Technique: One view of the chest Comparison: 03/02/2020 Findings: Bilateral infiltrates are unchanged. Normal heart size. Pleural spaces are clear Chest x-ray - 03/12/10 - Impression: COMPARISON: Chest radiograph March 06, 2020. FINDINGS/IMPRESSION: Improving basilar infiltrates. Follow chest radiograph recommended. The upper lung finley are clear. No pneumothorax. Stable cardiomegaly. Stable left upper extremity PICC line. anged, over 4 days, findings as above. Chest x-ray - 03/17/20 - Procedure: XRAY Chest 1v Indication: Shortness of breath Technique: One view of the chest Comparison: 03/12/2020 Findings: Left arm PICC is again demonstrated. Infiltrates are unchanged. The heart size is upper limits of normal. Impression: Unchanged, over 5 days, findings as above. Abdominal US - IMPRESSION: 1. Gallbladder is normal. 2. Hepatic steatosis. 3. 1.7 cm cyst right kidney. Impression. Chest x-ray - Procedure: XRAY Chest 1v Indication: Shortness of breath Technique: One view of the chest Comparison: 03/17/2020 Findings: Bilateral right greater than left infiltrates again demonstrated. The heart size is normal. There is a left arm PICC in good position. Impression: Unchanged, over 5 days, findings as above. Chest x-ray - 03/29/20 - Procedure: XRAY Chest 1v Indication: Cough Technique: One view of the chest Comparison: 03/28/2020 Findings: Bilateral infiltrates are unchanged or slightly worse, allowing for differences in exposure technique. The pleural spaces are clear. The heart size is normal. Stable satisfactory position of endotracheal tube, left arm PICC. Orogastric tube has retracted somewhat the position remains satisfactory. Impression: Stable to slightly worse bilateral infiltrates. Otherwise little oil changer one day Chest x-ray - 03/31/20 - Procedure: XRAY Chest 1v Indication: Post endotracheal tube repositioning Technique: One view of the chest Comparison: 3 hours earlier Findings: Interim advancement of endotracheal tube, tip projecting approximately 5 cm above the sunny. Interim advancement of orogastric tube as well. Bilateral infiltrates are unchanged. Left arm PICC remains Impression: Improved and now satisfactory tube positions as described. ICU nurse Maeve notified at the time of interpretation Chest x-ray - 04/02/20 - COMPARISON: Chest x-rays dated 03/31/20 and 03/12/20. FINDINGS: Lungs: No significant change in bilateral prominent interstitial markings. The lungs are otherwise clear without focal consolidation. Pleural space: Unremarkable. The costophrenic angles are sharp. No visible pneumothorax. Heart: Unremarkable. No cardiomegaly. Mediastinum: Unremarkable. Bones/joints: Unremarkable. Tubes, lines and devices: Endotracheal tube tip 6.5 cm above the sunny. NG tube tip in the distal stomach. Telemetry leads overlie the thorax. IMPRESSION: No significant change in bilateral prominent interstitial markings. Procedure: XRAY Chest 1v Procedure: XRAY Chest 1v Reason for study: Shortness of breath 04/06/20 - Comparison films: 04/02/2020. FINDINGS: Endotracheal tube and NG tube remain in place. There is worsening of right basilar infiltrates. Some haziness in left lung base unchanged. Cardiac and mediastinal silhouette are within normal limits. CP angles are sharp. The bony thorax appear unremarkable. IMPRESSION: Worsening of right basilar infiltrate. Chest x-ray - 04/09/20 - Procedure: XRAY Chest 1v FILM CXR 1 VIEW INDICATION: Infection COMPARISON: April 05, 2020 FINDINGS: Single frontal view demonstrates a normal cardiomediastinal silhouette. Endotracheal tube in place with tip above the sunny. Elevation of the right hemidiaphragm. Interstitial prominence with bilateral lower lobe infiltrates. Lung bases appear worse from the prior exam. Small right effusion. Right-sided PICC line with tip in the superior vena cava. Enteric tube in place. IMPRESSION: Interstitial prominence and bilateral lower lobe pneumonia with worsening appearance from the prior study. Chest x-ray - 04/12/20 - Procedure: XRAY Chest 1v Indication: Shortness of breath Technique: One view of the chest Comparison: 04/09/2020 Findings: Stable satisfactory tube and line positions. Bilateral infiltrates have worsened slightly since prior study. The heart size is normal. Impression: Worsening bilateral infiltrates, over 3 days Chest x-ray - 04/15/20 - COMPARISON: 02/11/21. FINDINGS: Lungs: There is been no significant change in mild to moderate patchy diffuse bilateral alveolar infiltrates which are most prominent in the lung bases. Pleural space: Unremarkable. No pneumothorax. Heart: Unremarkable. No cardiomegaly. Mediastinum: Unremarkable. Bones/joints: Unremarkable. Tubes, lines and devices: There is an endotracheal tube, right-sided PICC line and NG tube in good position. IMPRESSION: There is been no significant change in mild to moderate patchy diffuse bilateral alveolar infiltrates which are most prominent in the lung bases. Chest x-ray - 04/18/20 - Procedure: XRAY Chest 1v Indication: Cough Technique: One view of the chest Comparison: 04/15/2020 Findings: Less optimal inspiration currently than previously. Stable satisfactory positions of endotracheal and orogastric tubes and right arm PICC. Bilateral infiltrates are again demonstrated, unchanged. Impression: Unchanged, over 3 days, findings as above. Chest x-ray - 04/21/20 - Procedure: XRAY Chest 1v Indication: Dyspnea Technique: One view of the chest Comparison: 04/18/2020 Findings: Stable tube and line positions. Bilateral infiltrates are unchanged Impression: Unchanged, over one day, findings as above. Procedure: XRAY Chest 1v Procedure: XRAY Chest 1v Reason for study: Reason For Exam: SOB Chest x-ray - 04/25/20 - Comparison films: 04/21/2020. FINDINGS: Endotracheal tube, NG tube and right PICC line remain in place. Vascularity is normal. Bilateral infiltrates are unchanged. Cardiac and mediastinal silhouette are within normal limits. CP angles are sharp. The bony thorax appear unremarkable. IMPRESSION: NO SIGNIFICANT CHANGE COMPARED TO PREVIOUS EXAM. Microbiology Date/Time Source Procedure Growth Status 04/14/20 16:35 Stool Clostridium difficile Toxin Assay - Final Complete 04/12/20 08:40 Urine,Clean Catch Urine Culture - Final Cynthia Parapsilosis Complete 04/12/20 08:40 Sputum Gram Stain - Final Complete 04/12/20 08:40 Sputum Sputum Culture - Final NORMAL UPPER RESPIRATORY WILIAM AT 48 ... Complete 04/11/20 18:55 Blood Blood Culture - Final NO GROWTH AFTER 5 DAYS Complete Labs Test 04/23/20 11:06 04/24/20 05:43 04/25/20 03:40 White Blood Count 5.3 K/UL (4.8-10.8) 4.7 K/UL (4.8-10.8) Red Blood Count 3.15 M/UL (4.70-6.10) 3.11 M/UL (4.70-6.10) Hemoglobin 8.9 G/DL (14.2-18.0) 8.9 G/DL (14.2-18.0) Hematocrit 28.7 % (42.0-52.0) 28.3 % (42.0-52.0) Mean Corpuscular Volume 91 FL (80-99) 91 FL (80-99) Mean Corpuscular Hemoglobin 28.1 PG (27.0-31.0) 28.6 PG (27.0-31.0) Mean Corpuscular Hemoglobin Concent 30.8 G/DL (32.0-36.0) 31.3 G/DL (32.0-36.0) Red Cell Distribution Width 17.6 % (11.6-14.8) 17.4 % (11.6-14.8) Platelet Count 290 K/UL (150-450) 278 K/UL (150-450) Mean Platelet Volume 6.2 FL (6.5-10.1) 6.2 FL (6.5-10.1) Neutrophils (%) (Auto) 81.1 % (45.0-75.0) 78.7 % (45.0-75.0) Lymphocytes (%) (Auto) 11.6 % (20.0-45.0) 15.3 % (20.0-45.0) Monocytes (%) (Auto) 5.4 % (1.0-10.0) 5.5 % (1.0-10.0) Eosinophils (%) (Auto) 0.4 % (0.0-3.0) 0.1 % (0.0-3.0) Basophils (%) (Auto) 1.5 % (0.0-2.0) 0.4 % (0.0-2.0) Sodium Level 141 MMOL/L (136-145) 143 MMOL/L (136-145) Potassium Level 4.1 MMOL/L (3.5-5.1) 4.3 MMOL/L (3.5-5.1) Chloride Level 104 MMOL/L (98-107) 106 MMOL/L (98-107) Carbon Dioxide Level 34 MMOL/L (21-32) 35 MMOL/L (21-32) Anion Gap 3 mmol/L (5-15) 2 mmol/L (5-15) Blood Urea Nitrogen 15 mg/dL (7-18) 16 mg/dL (7-18) Creatinine 0.3 MG/DL (0.55-1.30) 0.4 MG/DL (0.55-1.30) Estimat Glomerular Filtration Rate > 60 mL/min (>60) > 60 mL/min (>60) Glucose Level 119 MG/DL (74-106) 103 MG/DL (74-106) Calcium Level 8.5 MG/DL (8.5-10.1) 8.4 MG/DL (8.5-10.1) Phosphorus Level 3.4 MG/DL (2.5-4.9) Magnesium Level 2.2 MG/DL (1.8-2.4) Total Bilirubin 0.4 MG/DL (0.2-1.0) Aspartate Amino Transf (AST/SGOT) 16 U/L (15-37) Alanine Aminotransferase (ALT/SGPT) 48 U/L (12-78) Alkaline Phosphatase 137 U/L (46-116) C-Reactive Protein, Quantitative < 0.4 mg/dL (0.00-0.90) Pro-B-Type Natriuretic Peptide 939 pg/mL (0-125) Total Protein 5.2 G/DL (6.4-8.2) Albumin 2.1 G/DL (3.4-5.0) Globulin 3.1 g/dL Albumin/Globulin Ratio 0.7 (1.0-2.7) Triglycerides Level 195 MG/DL (30-150) Laboratory Tests Test 04/25/20 03:40 Triglycerides Level 195 MG/DL (30-150) H Current Medications Medications (Trade) Dose Ordered Sig/Dennis Route PRN Reason Start Time Stop Time Status Last Admin Dose Admin Acetaminophen (Tylenol) 650 mg Q4H PRN ORAL Temp >100.5 04/13/20 00:30 05/13/20 00:29 04/13/20 01:30 Bisacodyl (Dulcolax) 10 mg Q12H PRN RECTAL Constipation 03/18/20 16:45 06/16/20 16:44 Chlorhexidine Gluconate (Marlen-Hex 2%) 1 applic DAILY@1999 TOPIC 03/30/20 20:00 06/28/20 19:59 04/24/20 19:53 Dextrose (Dextrose 50%) 25 ml Q30M PRN IV Hypoglycemia 03/29/20 20:45 06/27/20 20:44 Dextrose (Dextrose 50%) 50 ml Q30M PRN IV Hypoglycemia 03/29/20 20:45 4/27/21 20:44 Enoxaparin Sodium (Lovenox) 80 mg EVERY 12 HOURS SUBQ 04/06/20 21:00 07/05/20 20:59 04/25/20 08:35 Fentanyl Citrate 250 ml @ 1 mls/hr Q24H IV 04/23/20 13:00 04/25/20 16:29 04/25/20 08:30 Fentanyl Citrate 250 ml @ 1 mls/hr Q24H IV 04/25/20 16:30 04/27/20 16:29 Hydralazine HCl (Apresoline) 10 mg Q4H PRN IV For High Blood Pressure 03/30/20 12:15 06/28/20 12:14 04/25/20 02:04 Insulin Aspart (NovoLOG) Q6HR SUBQ 03/30/20 00:00 06/28/20 00:00 04/20/20 23:34 Labetalol HCl (Normodyne) 10 mg Q4H PRN IV sbp greater tahtn 160 03/28/20 17:30 04/27/20 17:29 04/21/20 06:02 Lansoprazole (Prevacid) 15 mg Q12HR GT 04/20/20 21:00 05/20/20 20:59 04/25/20 08:28 Methylprednisolone Sodium Succinate (Solu-MEDROL) 20 mg Q12HR IVP 04/12/20 21:00 06/20/20 20:59 04/25/20 09:03 Metoclopramide HCl (Reglan) 10 mg Q6H IVP 03/30/20 15:00 04/29/20 14:59 04/25/20 15:22 Midazolam HCl 200 ml @ 0 mls/hr Q24H PRN IV SEDATION 04/25/20 01:00 05/02/20 00:29 04/25/20 12:23 Morphine Sulfate (Morphine Sulfate) 4 mg Q6H PRN IVP agitation despite sedating med 04/21/20 12:45 04/28/20 12:44 04/25/20 00:36 Propofol 100 ml @ 3.266 mls/ hr Q12H IV 04/25/20 03:30 04/27/20 03:29 04/25/20 12:27 Trimethoprim/ Sulfamethoxazole (Bactrim-DS) 1 tab DAILY ORAL 04/23/20 20:00 05/23/20 19:59 04/25/20 08:36 Kisha Salazar MD Apr 25, 2020 15:47
--- NOTE | 2020-04-25 16:30 | NUR ---
NURSE NOTES: Pt Fully cleaned and linens changed. No new stool noted in collection bag. Oral care done.
--- NOTE | 2020-04-25 18:00 | NUR ---
NURSE NOTES: Dr Awan at bedside assessing pt. Updated him on pt's current condition.
--- NOTE | 2020-04-25 18:04 | Cardiology Progress Note ---
Assessment/Plan Assessment/Plan Acute covid 19 pneumonia hypoxemia infiltrate bilat bacteremia hypernatremia / hyponatremia mild abn lfts tachy post intubation fever fungemia dvt upper ext now on 55 % fio2 , have been successfully weaned form 100 % 2-[address] lisandra logan planned for tomorrow full sedated with fentanyl and versed and now propofol now afebrile now hypoxemia unlikely cardiac related tube feeding being tolerated echo reviewed last on 04/06 still shows normal lv function no valve pathology cxr still showing bilateral lower lobe infiltrates as of tele reviewed sinus / sinus fahad now is on full dose anticoag due to dvt ue this needs james held before surgery cr is stable d/w rn hsi abg show good oxygen level from 04/21 Subjective ROS Limited/Unobtainable: Yes Subjective not communicative dionisio vent Pt is resting on the bed, Sedated at this time; however notably starting to get agitated, as Versed was held d/t bradycardia. HR currently 78bpm on mysql developer. Pt is orally intubated ETT 8.0, 26cm @ the lip line. Vent settings: AC 18, TV 750, Fio2 65%, peep of 5, and O2sat is at 98%. no s/s of respiratory distress at this time. Pt has OGT, running Glucerna 1.5 at 50ml/hr, no residual noted at this time. rectal tube is in place, no leakage noted. BM color is brown. Brownlee cath is noted, draining well with gravity to uromete Objective Last 24 Hour Vital Signs Date Time Temp Pulse Resp B/P (MAP) Pulse Ox O2 Delivery O2 Flow Rate FiO2 04/25/20 17:07 18 128/66 Mechanical Ventilator 55 04/25/20 17:05 18 128/66 Mechanical Ventilator 55 04/25/20 17:00 61 18 128/66 (86) 96 04/25/20 17:00 18 128/66 Mechanical Ventilator 55 04/25/20 17:00 18 128/66 Mechanical Ventilator 55 04/25/20 16:00 Mechanical Ventilator 04/25/20 16:00 98.4 61 18 116/59 (78) 96 04/25/20 16:00 18 116/59 Mechanical Ventilator 55 04/25/20 16:00 18 116/59 Mechanical Ventilator 55 04/25/20 16:00 18 116/59 Mechanical Ventilator 55 04/25/20 16:00 55 04/25/20 15:40 57 18 55 04/25/20 15:00 18 122/67 Mechanical Ventilator 55 04/25/20 15:00 18 122/67 Mechanical Ventilator 55 04/25/20 15:00 18 122/67 Mechanical Ventilator 55 04/25/20 15:00 59 18 122/67 (85) 97 04/25/20 14:30 60 18 124/64 (84) 96 04/25/20 14:00 18 130/66 Mechanical Ventilator 55 04/25/20 14:00 18 130/66 Mechanical Ventilator 55 04/25/20 14:00 18 130/66 Mechanical Ventilator 55 04/25/20 14:00 62 18 131/66 (87) 95 04/25/20 13:30 64 18 123/63 (83) 94 04/25/20 13:00 67 18 125/62 (83) 90 04/25/20 13:00 18 120/61 Mechanical Ventilator 55 04/25/20 13:00 18 120/61 Mechanical Ventilator 55 04/25/20 13:00 18 120/61 Mechanical Ventilator 55 04/25/20 12:27 18 124/61 Mechanical Ventilator 55 04/25/20 12:23 18 124/61 Mechanical Ventilator 55 04/25/20 12:00 Mechanical Ventilator 04/25/20 12:00 66 04/25/20 12:00 18 124/61 Mechanical Ventilator 55 04/25/20 12:00 18 124/61 Mechanical Ventilator 55 04/25/20 12:00 18 124/61 Mechanical Ventilator 55 04/25/20 12:00 98.4 66 18 118/61 (80) 92 04/25/20 12:00 55 04/25/20 11:30 67 18 125/62 (83) 92 04/25/20 11:00 70 18 124/60 (81) 93 04/25/20 11:00 18 125/61 Mechanical Ventilator 55 04/25/20 11:00 18 125/61 Mechanical Ventilator 55 04/25/20 11:00 18 125/61 Mechanical Ventilator 55 04/25/20 10:58 63 18 55 04/25/20 10:00 71 18 128/67 (87) 93 04/25/20 10:00 18 132/70 Mechanical Ventilator 50 04/25/20 10:00 18 132/70 Mechanical Ventilator 50 04/25/20 10:00 18 132/70 Mechanical Ventilator 50 04/25/20 09:42 55 04/25/20 09:00 77 18 129/56 (80) 91 04/25/20 09:00 18 130/58 Mechanical Ventilator 50 04/25/20 09:00 18 130/58 Mechanical Ventilator 50 04/25/20 09:00 18 130/58 Mechanical Ventilator 50 04/25/20 08:30 18 108/57 Mechanical Ventilator 55 04/25/20 08:00 Mechanical Ventilator 04/25/20 08:00 55 04/25/20 08:00 18 108/57 Mechanical Ventilator 55 04/25/20 08:00 18 108/57 Mechanical Ventilator 55 04/25/20 08:00 18 108/57 Mechanical Ventilator 55 04/25/20 08:00 98.4 60 18 107/58 (74) 93 04/25/20 08:00 60 04/25/20 07:30 56 18 107/56 (73) 98 04/25/20 07:18 63 18 50 04/25/20 07:00 18 108/57 Mechanical Ventilator 55 04/25/20 07:00 18 108/57 Mechanical Ventilator 55 04/25/20 07:00 18 108/57 Mechanical Ventilator 55 04/25/20 07:00 56 18 108/57 (74) 98 04/25/20 06:45 58 18 110/58 (75) 97 04/25/20 06:30 59 18 112/59 (76) 96 04/25/20 06:28 18 106/59 Mechanical Ventilator 55 04/25/20 06:00 18 106/59 Mechanical Ventilator 55 04/25/20 06:00 18 106/59 Mechanical Ventilator 55 04/25/20 06:00 59 18 104/56 (72) 94 04/25/20 05:59 21 105/60 Mechanical Ventilator 55 04/25/20 05:30 62 18 96/55 (69) 93 04/25/20 05:28 18 94/53 Mechanical Ventilator 55 04/25/20 05:00 63 18 97/54 (68) 93 04/25/20 05:00 18 94/53 Mechanical Ventilator 55 04/25/20 05:00 18 94/53 Mechanical Ventilator 55 04/25/20 04:30 70 18 95/50 (65) 94 04/25/20 04:28 18 98/53 Mechanical Ventilator 55 04/25/20 04:13 21 110/53 Mechanical Ventilator 55 04/25/20 04:00 71 04/25/20 04:00 87 19 110/53 (72) 94 04/25/20 04:00 Mechanical Ventilator 04/25/20 04:00 18 98/53 Mechanical Ventilator 55 04/25/20 04:00 18 98/53 Mechanical Ventilator 55 04/25/20 04:00 55 04/25/20 03:58 29 143/71 Mechanical Ventilator 55 04/25/20 03:43 42 197/84 Mechanical Ventilator 55 04/25/20 03:30 111 30 143/71 (95) 94 04/25/20 03:00 113 22 50 04/25/20 03:00 113 26 172/71 (104) 93 04/25/20 03:00 24 197/84 Mechanical Ventilator 55 04/25/20 03:00 24 197/84 Mechanical Ventilator 55 04/25/20 02:30 96 22 180/71 (107) 94 04/25/20 02:04 176/80 04/25/20 02:00 89 19 176/87 (116) 91 04/25/20 02:00 23 184/86 Mechanical Ventilator 55 04/25/20 02:00 23 184/86 Endotracheal Tube 55 04/25/20 01:30 78 19 173/75 (107) 89 04/25/20 01:00 21 178/91 Mechanical Ventilator 55 04/25/20 01:00 22 175/80 Mechanical Ventilator 55 04/25/20 01:00 86 22 182/94 (123) 91 04/25/20 00:58 22 178/81 Mechanical Ventilator 55 04/25/20 00:45 86 19 178/91 (120) 92 04/25/20 00:30 91 20 192/92 (125) 89 04/25/20 00:00 85 04/25/20 00:00 55 04/25/20 00:00 18 187/89 Mechanical Ventilator 55 04/25/20 00:00 21 187/89 Mechanical Ventilator 04/25/20 00:00 98.6 60 18 135/59 (84) 93 04/25/20 00:00 Mechanical Ventilator 04/24/20 23:52 23 125/56 50 04/24/20 23:30 58 18 118/59 (78) 91 04/24/20 23:10 51 18 50 04/24/20 23:00 55 18 124/67 (86) 96 04/24/20 23:00 21 124/65 Mechanical Ventilator 55 04/24/20 23:00 20 124/65 Mechanical Ventilator 55 04/24/20 23:00 50 04/24/20 22:30 60 18 120/65 (83) 95 04/24/20 22:00 21 126/65 Mechanical Ventilator 55 04/24/20 22:00 18 126/65 Mechanical Ventilator 55 04/24/20 22:00 60 18 114/56 (75) 94 04/24/20 21:30 52 18 125/65 (85) 96 04/24/20 21:00 57 18 118/59 (78) 93 04/24/20 21:00 18 113/60 Mechanical Ventilator 55 04/24/20 21:00 18 113/60 Mechanical Ventilator 55 04/24/20 20:30 58 18 133/70 (91) 93 04/24/20 20:15 54 18 119/62 (81) 98 04/24/20 20:00 98.0 56 18 112/57 (75) 98 04/24/20 20:00 Mechanical Ventilator 04/24/20 20:00 18 119/62 Mechanical Ventilator 55 04/24/20 20:00 18 113/60 Mechanical Ventilator 55 04/24/20 19:45 57 18 113/58 (76) 97 04/24/20 19:30 59 18 128/63 (84) 98 04/24/20 19:00 18 121/62 Mechanical Ventilator 55 04/24/20 19:00 18 121/62 Mechanical Ventilator 55 04/24/20 19:00 63 18 55 04/24/20 19:00 62 18 121/62 (81) 95 04/24/20 18:37 18 129/65 Mechanical Ventilator 55 General Appearance: no apparent distress, on vent, patient on isolation, isolation precautions Cardiovascular: normal rate Respiratory/Chest: lungs clear Abdomen: normal bowel sounds, non tender, soft Extremities: no swelling, trace edema - right leg distal to bp cuff Intake and Output 04/24/20 04/25/20 19:00 07:00 Intake Total 1587.83 ml 1430.3796 ml Output Total 1530 ml 840 ml Balance 57.83 ml 590.3796 ml IV Total 767.83 ml 830.3796 ml Tube Feeding 600 ml 600 ml Other 220 ml Output Urine Total 1530 ml 840 ml Laboratory Tests Test 04/25/20 03:40 Triglycerides Level 195 MG/DL (30-150) H Objective pt seen persoanlly Manan Awan MD Apr 25, 2020 18:04
--- NOTE | 2020-04-25 18:15 | NUR ---
NURSE NOTES: Pt scheduled for tracheostomy tomorrow. Consent obtained and in pt's chart.
--- NOTE | 2020-04-25 19:10 | NUR ---
NURSE HAND-OFF REPORT: Latest Vital Signs: Temperature 98.4 , Pulse 57 , B/P 140 /70 , Respiratory Rate 18 , O2 SAT 96 , Mechanical Ventilator, FiO2 55% . Vital Sign Comment: EKG Rhythm: Sinus Bradycardia Rhythm change?: N MD Notified?: Dr Emperatriz guido MD Response: Latest Hassan Fall Score: 50 Fall Risk: High Risk Safety Measures: Call light Within Reach, Bed Alarm Zone 3, Side Rails Side Rails x3, Bed position Low and Locked. Fall Precautions: Yellow Socks Yellow Gown Door Sign Patient Fall Education Report given to PRIYANKA Hayden.
--- NOTE | 2020-04-25 19:24 | Surgery Progress Note ---
Surgery Progress Note Subjective Additional Comments on vent plan trach tomorrow Objective Last 24 Hour Vital Signs Date Time Temp Pulse Resp B/P (MAP) Pulse Ox O2 Delivery O2 Flow Rate FiO2 04/25/20 19:22 57 18 55 04/25/20 19:00 57 18 140/70 (93) 96 04/25/20 19:00 18 140/70 Mechanical Ventilator 55 04/25/20 19:00 18 140/70 Mechanical Ventilator 55 04/25/20 19:00 18 140/70 Mechanical Ventilator 55 04/25/20 18:00 57 18 142/69 (93) 97 04/25/20 18:00 18 142/69 Mechanical Ventilator 55 04/25/20 18:00 18 142/69 Mechanical Ventilator 55 04/25/20 18:00 18 142/69 Mechanical Ventilator 55 04/25/20 17:07 18 128/66 Mechanical Ventilator 55 04/25/20 17:05 18 128/66 Mechanical Ventilator 55 04/25/20 17:00 61 18 128/66 (86) 96 04/25/20 17:00 18 128/66 Mechanical Ventilator 55 04/25/20 17:00 18 128/66 Mechanical Ventilator 55 04/25/20 16:00 Mechanical Ventilator 04/25/20 16:00 98.4 61 18 116/59 (78) 96 04/25/20 16:00 18 116/59 Mechanical Ventilator 55 04/25/20 16:00 18 116/59 Mechanical Ventilator 55 04/25/20 16:00 18 116/59 Mechanical Ventilator 55 04/25/20 16:00 55 04/25/20 16:00 61 04/25/20 15:40 57 18 55 04/25/20 15:00 18 122/67 Mechanical Ventilator 55 04/25/20 15:00 18 122/67 Mechanical Ventilator 55 04/25/20 15:00 18 122/67 Mechanical Ventilator 55 04/25/20 15:00 59 18 122/67 (85) 97 04/25/20 14:30 60 18 124/64 (84) 96 04/25/20 14:00 18 130/66 Mechanical Ventilator 55 04/25/20 14:00 18 130/66 Mechanical Ventilator 55 04/25/20 14:00 18 130/66 Mechanical Ventilator 55 04/25/20 14:00 62 18 131/66 (87) 95 2/23/21 13:30 64 18 123/63 (83) 94 04/25/20 13:00 67 18 125/62 (83) 90 04/25/20 13:00 18 120/61 Mechanical Ventilator 55 04/25/20 13:00 18 120/61 Mechanical Ventilator 55 04/25/20 13:00 18 120/61 Mechanical Ventilator 55 04/25/20 12:27 18 124/61 Mechanical Ventilator 55 04/25/20 12:23 18 124/61 Mechanical Ventilator 55 04/25/20 12:00 Mechanical Ventilator 04/25/20 12:00 66 04/25/20 12:00 18 124/61 Mechanical Ventilator 55 04/25/20 12:00 18 124/61 Mechanical Ventilator 55 04/25/20 12:00 18 124/61 Mechanical Ventilator 55 04/25/20 12:00 98.4 66 18 118/61 (80) 92 04/25/20 12:00 55 04/25/20 11:30 67 18 125/62 (83) 92 04/25/20 11:00 70 18 124/60 (81) 93 04/25/20 11:00 18 125/61 Mechanical Ventilator 55 04/25/20 11:00 18 125/61 Mechanical Ventilator 55 04/25/20 11:00 18 125/61 Mechanical Ventilator 55 04/25/20 10:58 63 18 55 04/25/20 10:00 71 18 128/67 (87) 93 04/25/20 10:00 18 132/70 Mechanical Ventilator 50 04/25/20 10:00 18 132/70 Mechanical Ventilator 50 04/25/20 10:00 18 132/70 Mechanical Ventilator 50 04/25/20 09:42 55 04/25/20 09:00 77 18 129/56 (80) 91 04/25/20 09:00 18 130/58 Mechanical Ventilator 50 04/25/20 09:00 18 130/58 Mechanical Ventilator 50 04/25/20 09:00 18 130/58 Mechanical Ventilator 50 04/25/20 08:30 18 108/57 Mechanical Ventilator 55 04/25/20 08:00 Mechanical Ventilator 04/25/20 08:00 55 04/25/20 08:00 18 108/57 Mechanical Ventilator 55 04/25/20 08:00 18 108/57 Mechanical Ventilator 55 04/25/20 08:00 18 108/57 Mechanical Ventilator 55 04/25/20 08:00 98.4 60 18 107/58 (74) 93 04/25/20 08:00 60 04/25/20 07:30 56 18 107/56 (73) 98 04/25/20 07:18 63 18 50 04/25/20 07:00 18 108/57 Mechanical Ventilator 55 04/25/20 07:00 18 108/57 Mechanical Ventilator 55 04/25/20 07:00 18 108/57 Mechanical Ventilator 55 04/25/20 07:00 56 18 108/57 (74) 98 04/25/20 06:45 58 18 110/58 (75) 97 04/25/20 06:30 59 18 112/59 (76) 96 04/25/20 06:28 18 106/59 Mechanical Ventilator 55 04/25/20 06:00 18 106/59 Mechanical Ventilator 55 04/25/20 06:00 18 106/59 Mechanical Ventilator 55 04/25/20 06:00 59 18 104/56 (72) 94 04/25/20 05:59 21 105/60 Mechanical Ventilator 55 04/25/20 05:30 62 18 96/55 (69) 93 04/25/20 05:28 18 94/53 Mechanical Ventilator 55 04/25/20 05:00 63 18 97/54 (68) 93 04/25/20 05:00 18 94/53 Mechanical Ventilator 55 04/25/20 05:00 18 94/53 Mechanical Ventilator 55 04/25/20 04:30 70 18 95/50 (65) 94 04/25/20 04:28 18 98/53 Mechanical Ventilator 55 04/25/20 04:13 21 110/53 Mechanical Ventilator 55 04/25/20 04:00 71 04/25/20 04:00 87 19 110/53 (72) 94 04/25/20 04:00 Mechanical Ventilator 04/25/20 04:00 18 98/53 Mechanical Ventilator 55 04/25/20 04:00 18 98/53 Mechanical Ventilator 55 04/25/20 04:00 55 04/25/20 03:58 29 143/71 Mechanical Ventilator 55 04/25/20 03:43 42 197/84 Mechanical Ventilator 55 04/25/20 03:30 111 30 143/71 (95) 94 04/25/20 03:00 113 22 50 04/25/20 03:00 113 26 172/71 (104) 93 04/25/20 03:00 24 197/84 Mechanical Ventilator 55 04/25/20 03:00 24 197/84 Mechanical Ventilator 55 04/25/20 02:30 96 22 180/71 (107) 94 04/25/20 02:04 176/80 04/25/20 02:00 89 19 176/87 (116) 91 04/25/20 02:00 23 184/86 Mechanical Ventilator 55 04/25/20 02:00 23 184/86 Endotracheal Tube 55 04/25/20 01:30 78 19 173/75 (107) 89 04/25/20 01:00 21 178/91 Mechanical Ventilator 55 04/25/20 01:00 22 175/80 Mechanical Ventilator 55 04/25/20 01:00 86 22 182/94 (123) 91 04/25/20 00:58 22 178/81 Mechanical Ventilator 55 04/25/20 00:45 86 19 178/91 (120) 92 04/25/20 00:30 91 20 192/92 (125) 89 04/25/20 00:00 85 04/25/20 00:00 55 04/25/20 00:00 18 187/89 Mechanical Ventilator 55 04/25/20 00:00 21 187/89 Mechanical Ventilator 04/25/20 00:00 98.6 60 18 135/59 (84) 93 04/25/20 00:00 Mechanical Ventilator 04/24/20 23:52 23 125/56 50 04/24/20 23:30 58 18 118/59 (78) 91 04/24/20 23:10 51 18 50 04/24/20 23:00 55 18 124/67 (86) 96 04/24/20 23:00 21 124/65 Mechanical Ventilator 55 04/24/20 23:00 20 124/65 Mechanical Ventilator 55 04/24/20 23:00 50 04/24/20 22:30 60 18 120/65 (83) 95 04/24/20 22:00 21 126/65 Mechanical Ventilator 55 04/24/20 22:00 18 126/65 Mechanical Ventilator 55 04/24/20 22:00 60 18 114/56 (75) 94 04/24/20 21:30 52 18 125/65 (85) 96 04/24/20 21:00 57 18 118/59 (78) 93 04/24/20 21:00 18 113/60 Mechanical Ventilator 55 04/24/20 21:00 18 113/60 Mechanical Ventilator 55 04/24/20 20:30 58 18 133/70 (91) 93 04/24/20 20:15 54 18 119/62 (81) 98 04/24/20 20:00 98.0 56 18 112/57 (75) 98 04/24/20 20:00 Mechanical Ventilator 04/24/20 20:00 18 119/62 Mechanical Ventilator 55 04/24/20 20:00 18 113/60 Mechanical Ventilator 55 04/24/20 19:45 57 18 113/58 (76) 97 04/24/20 19:30 59 18 128/63 (84) 98 I&O Intake and Output 04/24/20 04/25/20 19:00 07:00 Intake Total 1587.83 ml 1430.3796 ml Output Total 1530 ml 840 ml Balance 57.83 ml 590.3796 ml IV Total 767.83 ml 830.3796 ml Tube Feeding 600 ml 600 ml Other 220 ml Output Urine Total 1530 ml 840 ml Dressing: other Wound: other Cardiovascular: RSR Respiratory: decreased breath sounds Abdomen: soft, non-tender, present bowel sounds Extremities: no tenderness, no cyanosis Laboratory Tests Test 04/25/20 03:40 Triglycerides Level 195 MG/DL (30-150) H Plan Problems: (1) Pneumonia (2) Staphylococcus aureus bacteremia (3) COVID-19 virus infection (4) Chest pain (5) Hypertension (6) Dehydration (7) Electrolyte imbalance (8) DMII (diabetes mellitus, type 2) (9) Protein malnutrition (10) Respiratory insufficiency Assessment & Plan: 64-year-old male with respiratory insufficiency intubated in an intensive care unit. Patient has been unable to safely wean off ventilatory support. Surgery called to evaluate for tracheostomy. After careful evaluation patient is a candidate for tracheostomy. In the meantime will obtain consent. If consent obtained will proceed with scheduling. Thank you for your participation's care will follow recommendations Booker Rausch Apr 25, 2020 19:24
--- NOTE | 2020-04-25 19:30 | NUR ---
NURSE NOTES: Received pt orally intubated on ac mode, sedated with Fentanyl drip at 300mcg/min. Versed at 20mg/min. Propofol drip at 15mcgkg/min, SB-SR on the the monitor, bp stable afebrile, pts edematous, with Rt soft wrist restraints on for safety to avoid self extubation, tolerated fdg at this time, HOB kept elevated. on aspiration precaution.Will continue to monitor,
[2020-04-25] MEDS: Dyna-Hex 2% Top Sol 2oz TOPIC SCH (19:48)
[2020-04-26] VITALS (50 sets, daily range): BP systolic 106–188; BP diastolic 57–100
--- NOTE | 2020-04-26 | NUR ---
No acute changes at this time, safety measures in place. Will continue to monitor. Addendum: 04/27/20 at 0107 by NEVIN STEPHENS RN correct date is 04/27/20
--- NOTE | 2020-04-26 | NUR ---
NURSE NOTES: placed NPO after midnight, for trache in am.
[2020-04-26] MEDS: Morphine Sulfate 4mg/ml Inj IVP PRN (00:13)
[2020-04-26] MEDS: fentaNYL 2500mcg/NS 250ml 250 ML IV SCH ×3 (01:29→21:02)
[2020-04-26] MEDS: Metoclopramide 10mg/2ml Inj IVP SCH ×4 (03:10→22:01)
[2020-04-26] MEDS: [UNRECOGNIZED DRUG - OTHER] IV PRN ×4 (03:24→22:19)
[2020-04-26] MEDS: VERSED IV PRN ×4 (03:24→22:19)
--- NOTE | 2020-04-26 04:00 | NUR ---
NURSE NOTES: complete bed bath with bed changed was done.
[2020-04-26 05:38] LABS: BASOPHILS % (AUTO) 0.5 % (0.0-2.0); HEMATOCRIT 29.2 % (42.0-52.0); HEMOGLOBIN 9.2 G/DL (14.2-18.0); LYMPHOCYTES % (AUTO) 12.5 % (20.0-45.0); MEAN CORPUSCULAR VOLUME 92 FL (80-99); MONOCYTES % (AUTO) 6.5 % (1.0-10.0); NEUTROPHILS % (AUTO) 80.5 % (45.0-75.0); PLATELET COUNT 300 K/UL (150-450); RED BLOOD COUNT 3.18 M/UL (4.70-6.10); RED CELL DISTRIBUTION WIDTH 17.6 % (11.6-14.8); WHITE BLOOD COUNT 5.7 K/UL (4.8-10.8)
[2020-04-26 05:40] LABS: INR 1.1 (0.9-1.1)
[2020-04-26] MEDS: NovoLOG Insulin Flexpen SUBQ SCH ×4 (05:49→18:00)
[2020-04-26] MEDS: propofoL 1,000mg/100ml 100 ML IV SCH (05:52)
--- NOTE | 2020-04-26 06:00 | NUR ---
NURSE NOTES: No resp, distress noted ,accucheck no coverage,
[2020-04-26 06:03] LABS: ALANINE AMINOTRANSFERASE 59 U/L (12-78); ALBUMIN 2.3 G/DL (3.4-5.0); ALBUMIN/GLOBULIN RATIO 0.7 (1.0-2.7); ALKALINE PHOSPHATASE 133 U/L (46-116); ANION GAP 9 mmol/L (5-15); ASPARTATE AMINO TRANSFERASE 28 U/L (15-37); BILIRUBIN,TOTAL 0.4 MG/DL (0.2-1.0); BLOOD UREA NITROGEN 18 mg/dL (7-18); CALCIUM 8.3 MG/DL (8.5-10.1); CARBON DIOXIDE 28 MMOL/L (21-32); CHLORIDE 105 MMOL/L (98-107); CREATININE 0.4 MG/DL (0.55-1.30); PHOSPHORUS 3.8 MG/DL (2.5-4.9); POTASSIUM 4.5 MMOL/L (3.5-5.1); SODIUM 142 MMOL/L (136-145)
[2020-04-26] MEDS ORDERED: fentaNYL 100 mcg/2 mL IV ONE (07:00)
[2020-04-26] MEDS ORDERED: Rocuronium Bromide 50mg/5ml Inj IV ONE (07:09)
[2020-04-26] MEDS ORDERED: Bupivacaine 0.25% Inj 30ml INJ ONE (07:11)
[2020-04-26] MEDS ORDERED: EPINEPHrine 1mg/1ml Amp ONE (07:11)
--- NOTE | 2020-04-26 07:29 | NUR ---
NURSE HAND-OFF REPORT: Latest Vital Signs: Temperature 98.6 , Pulse 47 , B/P 138 /66 , Respiratory Rate 18 , O2 SAT 100 , Mechanical Ventilator, O2 Flow Rate . Vital Sign Comment: EKG Rhythm: Sinus Bradycardia Rhythm change?: N Notified?: N -Dr.Toluie INTERINAO Response: Message left await call Latest Hassan Fall Score: 50 Fall Risk: High Risk Safety Measures: Call light Within Reach, Bed Alarm Zone 3, Side Rails Side Rails x3, Bed position Low and Locked. Fall Precautions: Yellow Socks Yellow Gown Door Sign Patient Fall Education Report given Carla MATHEW .
--- NOTE | 2020-04-26 07:31 | Pre-Procedure Note/Attestation ---
Pre-Procedure Note/Attestation Complete Prior to Procedure Procedure Narrative: tracheostomy Indications for Procedure Pre-Operative Diagnosis: respiratory insufficiency covid+ Attestation I attest that I discussed the nature of the procedure; its benefits; risks and complications; and alternatives (and the risks and benefits of such alternatives), prior to the procedure, with the patient (or the patient's legal public health representative). I attest that, if there was a reasonable possibility of needing a blood transfusion, the patient (or the patient's legal public health representative) was given the [facility] standardized written summary, pursuant to the Keith Charco Blood Safety Act ([place] Health and Safety Code # 1645, as amended). I attest that I re-evaluated the patient just prior to the surgery and that there has been no change in the patient's H&P, except as documented below: Booker Rausch Apr 26, 2020 07:31
--- NOTE | 2020-04-26 07:38 | NUR ---
RESPIRATORY NOTE: PT received on AC/VC: 18, 750 60%, +5. Alarms are on and audible. Vent circuit is secure and out of the way. Airway is secure and patent. No s/s of respiratory distress noted at this time. Will continue to closely monitor.
--- NOTE | 2020-04-26 07:45 | NUR ---
NURSE NOTES: Transport team at the bedside and ready to take patient to surgery for tracheostomy. anesthesiologist is present an assessing patient. Dr. serrano has been made aware the patient FIo2 has increased to 60% FIO2, patient cleared to have trach placed.
--- NOTE | 2020-04-26 08:05 | NUR ---
RESPIRATORY NOTE: PT transported to surgery for tracheostomy procedure. Addendum: 04/26/20 at 1043 by QUINN NEGRON RT RESPIRATORY NOTE: PT transported to surgery for tracheostomy procedure @ 7581. PT was manually ventilated with no adverse reactions noted during transport.
[2020-04-26] MEDS ORDERED: Neosporin Oint Ud Pkt TOPIC ONE (08:19)
--- NOTE | 2020-04-26 08:55 | NUR ---
NURSE NOTES: Dr. Rausch is at the bedside assessing the patient trach after surgery. there is no blood present or any drainage noted, there is a Shiley 8.0 secured with an neck tie, OG-tube taken out during the tracheostomy placement and inserted a left nares NG-tube. no verbal orders given at this time.
--- NOTE | 2020-04-26 09:19 | NUR ---
RESPIRATORY NOTE: PT returned from surgery post tracheostomy procedure @ 0850. FiO2 increased to 90% due to low saturation of 79%. @ 0914 FiO2 decreased to 70%. PT tolerating well. SPO2:95% @ 0918 FiO2 decreased to 60%. PT tolerating well. SPO2:94% Kevin MATHEW aware of all changes. Will continue to closely monitor.
--- NOTE | 2020-04-26 09:37 | Surgery Progress Note ---
Surgery Progress Note Subjective Additional Comments trach today Objective Last 24 Hour Vital Signs Date Time Temp Pulse Resp B/P (MAP) Pulse Ox O2 Delivery O2 Flow Rate FiO2 04/26/20 09:15 96 22 165/85 (111) 99 04/26/20 09:00 70 04/26/20 09:00 98.2 103 25 169/85 (113) 95 04/26/20 08:50 90 04/26/20 07:50 55 04/26/20 07:30 51 18 136/65 (88) 100 04/26/20 07:15 52 18 139/65 (89) 100 04/26/20 07:00 49 18 135/64 (87) 100 04/26/20 06:45 47 18 138/66 (90) 100 04/26/20 06:30 47 18 132/65 (87) 100 04/26/20 06:15 52 18 127/60 (82) 100 04/26/20 06:00 21 127/60 Mechanical Ventilator 55 04/26/20 06:00 18 127/60 Mechanical Ventilator 55 04/26/20 06:00 21 127/60 Mechanical Ventilator 55 04/26/20 06:00 52 18 132/66 (88) 100 04/26/20 05:52 21 136/63 Mechanical Ventilator 55 04/26/20 05:25 53 18 55 04/26/20 05:15 54 18 128/60 (82) 100 04/26/20 05:00 53 18 125/58 (80) 100 04/26/20 05:00 18 128/60 Mechanical Ventilator 60 04/26/20 05:00 18 128/60 Mechanical Ventilator 60 04/26/20 05:00 18 128/60 Mechanical Ventilator 60 04/26/20 04:00 98.6 68 16 154/67 (96) 96 04/26/20 04:00 94 04/26/20 04:00 18 143/65 Mechanical Ventilator 60 04/26/20 04:00 18 143/65 Mechanical Ventilator 60 04/26/20 04:00 18 143/65 Mechanical Ventilator 60 04/26/20 04:00 55 04/26/20 04:00 Mechanical Ventilator 04/26/20 03:24 21 123/68 Mechanical Ventilator 55 04/26/20 03:12 58 18 55 04/26/20 03:00 59 15 128/61 (83) 98 04/26/20 03:00 18 123/68 Mechanical Ventilator 60 04/26/20 03:00 18 123/68 Mechanical Ventilator 60 04/26/20 03:00 18 123/68 Mechanical Ventilator 60 04/26/20 02:45 62 0 129/62 (84) 98 04/26/20 02:30 64 0 131/65 (87) 97 04/26/20 02:15 66 16 145/70 (95) 97 04/26/20 02:00 74 17 159/78 (105) 94 04/26/20 02:00 18 145/70 Mechanical Ventilator 60 04/26/20 02:00 18 145/70 Endotracheal Tube 60 04/26/20 02:00 18 145/70 Mechanical Ventilator 60 04/26/20 01:29 25 158/88 Mechanical Ventilator 55 04/26/20 01:29 78 20 55 04/26/20 01:00 55 158/88 Mechanical Ventilator 55 04/26/20 01:00 18 158/88 Mechanical Ventilator 55 04/26/20 01:00 18 158/88 Mechanical Ventilator 55 04/26/20 01:00 78 18 158/88 (111) 94 04/26/20 00:00 55 04/26/20 00:00 18 185/87 Mechanical Ventilator 55 04/26/20 00:00 18 185/87 Mechanical Ventilator 55 04/26/20 00:00 18 138/70 Mechanical Ventilator 55 04/26/20 00:00 98.8 97 26 185/87 (119) 88 04/26/20 00:00 97 04/26/20 00:00 Mechanical Ventilator 04/25/20 23:00 18 138/70 Mechanical Ventilator 55 04/25/20 23:00 18 138/70 Mechanical Ventilator 55 04/25/20 23:00 18 138/70 Mechanical Ventilator 55 04/25/20 23:00 55 18 138/70 (92) 95 04/25/20 22:44 51 18 55 04/25/20 22:30 55 18 127/63 (84) 95 04/25/20 22:00 18 138/70 Mechanical Ventilator 55 04/25/20 22:00 18 127/66 Mechanical Ventilator 55 04/25/20 22:00 18 127/66 Mechanical Ventilator 55 04/25/20 22:00 57 18 133/66 (88) 96 04/25/20 21:45 21 134/66 Mechanical Ventilator 55 04/25/20 21:05 66 18 55 04/25/20 21:00 59 18 128/61 (83) 97 04/25/20 21:00 18 127/66 Mechanical Ventilator 55 04/25/20 21:00 18 127/61 Mechanical Ventilator 55 04/25/20 21:00 18 127/61 Mechanical Ventilator 55 04/25/20 20:00 58 04/25/20 20:00 98.0 56 18 134/66 (88) 96 04/25/20 20:00 18 131/97 Mechanical Ventilator 55 04/25/20 20:00 18 131/64 Mechanical Ventilator 55 04/25/20 20:00 18 127/80 Mechanical Ventilator 55 04/25/20 20:00 Mechanical Ventilator 04/25/20 20:00 55 04/25/20 19:49 21 142/71 Mechanical Ventilator 55 04/25/20 19:22 57 18 55 04/25/20 19:00 57 18 140/70 (93) 96 04/25/20 19:00 18 140/70 Mechanical Ventilator 55 04/25/20 19:00 18 140/70 Mechanical Ventilator 55 04/25/20 19:00 18 140/70 Mechanical Ventilator 55 04/25/20 18:00 57 18 142/69 (93) 97 04/25/20 18:00 18 142/69 Mechanical Ventilator 55 04/25/20 18:00 18 142/69 Mechanical Ventilator 55 04/25/20 18:00 18 142/69 Mechanical Ventilator 55 04/25/20 17:07 18 128/66 Mechanical Ventilator 55 04/25/20 17:05 18 128/66 Mechanical Ventilator 55 04/25/20 17:00 61 18 128/66 (86) 96 04/25/20 17:00 18 128/66 Mechanical Ventilator 55 04/25/20 17:00 18 128/66 Mechanical Ventilator 55 04/25/20 16:00 Mechanical Ventilator 04/25/20 16:00 98.4 61 18 116/59 (78) 96 04/25/20 16:00 18 116/59 Mechanical Ventilator 55 04/25/20 16:00 18 116/59 Mechanical Ventilator 55 04/25/20 16:00 18 116/59 Mechanical Ventilator 55 04/25/20 16:00 55 04/25/20 16:00 61 04/25/20 15:40 57 18 55 04/25/20 15:00 18 122/67 Mechanical Ventilator 55 04/25/20 15:00 18 122/67 Mechanical Ventilator 55 04/25/20 15:00 18 122/67 Mechanical Ventilator 55 04/25/20 15:00 59 18 122/67 (85) 97 04/25/20 14:30 60 18 124/64 (84) 96 04/25/20 14:00 18 130/66 Mechanical Ventilator 55 04/25/20 14:00 18 130/66 Mechanical Ventilator 55 04/25/20 14:00 18 130/66 Mechanical Ventilator 55 04/25/20 14:00 62 18 131/66 (87) 95 04/25/20 13:30 64 18 123/63 (83) 94 04/25/20 13:00 67 18 125/62 (83) 90 04/25/20 13:00 18 120/61 Mechanical Ventilator 55 04/25/20 13:00 18 120/61 Mechanical Ventilator 55 04/25/20 13:00 18 120/61 Mechanical Ventilator 55 04/25/20 12:27 18 124/61 Mechanical Ventilator 55 04/25/20 12:23 18 124/61 Mechanical Ventilator 55 04/25/20 12:00 Mechanical Ventilator 04/25/20 12:00 66 04/25/20 12:00 18 124/61 Mechanical Ventilator 55 04/25/20 12:00 18 124/61 Mechanical Ventilator 55 04/25/20 12:00 18 124/61 Mechanical Ventilator 55 04/25/20 12:00 98.4 66 18 118/61 (80) 92 04/25/20 12:00 55 04/25/20 11:30 67 18 125/62 (83) 92 04/25/20 11:00 70 18 124/60 (81) 93 04/25/20 11:00 18 125/61 Mechanical Ventilator 55 04/25/20 11:00 18 125/61 Mechanical Ventilator 55 04/25/20 11:00 18 125/61 Mechanical Ventilator 55 04/25/20 10:58 63 18 55 04/25/20 10:00 71 18 128/67 (87) 93 04/25/20 10:00 18 132/70 Mechanical Ventilator 50 04/25/20 10:00 18 132/70 Mechanical Ventilator 50 04/25/20 10:00 18 132/70 Mechanical Ventilator 50 04/25/20 09:42 55 I&O Intake and Output 04/25/20 04/26/20 19:00 07:00 Intake Total 1710.066 ml 1069.280 ml Output Total 720 ml 780 ml Balance 990.066 ml 289.280 ml Free Water 100 ml IV Total 890.066 ml 819.280 ml Tube Feeding 600 ml 250 ml Other 120 ml Output Urine Total 720 ml 680 ml Stool Total 100 ml Laboratory Tests Test 04/26/20 03:15 White Blood Count 5.7 K/UL (4.8-10.8) Red Blood Count 3.18 M/UL (4.70-6.10) L Hemoglobin 9.2 G/DL (14.2-18.0) L Hematocrit 29.2 % (42.0-52.0) L Mean Corpuscular Volume 92 FL (80-99) Mean Corpuscular Hemoglobin 28.8 PG (27.0-31.0) Mean Corpuscular Hemoglobin Concent 31.4 G/DL (32.0-36.0) L Red Cell Distribution Width 17.6 % (11.6-14.8) H Platelet Count 300 K/UL (150-450) Mean Platelet Volume 6.4 FL (6.5-10.1) L Neutrophils (%) (Auto) 80.5 % (45.0-75.0) H Lymphocytes (%) (Auto) 12.5 % (20.0-45.0) L Monocytes (%) (Auto) 6.5 % (1.0-10.0) Eosinophils (%) (Auto) 0.0 % (0.0-3.0) Basophils (%) (Auto) 0.5 % (0.0-2.0) Prothrombin Time 12.0 SEC (9.30-11.50) H Prothromb Time International Ratio 1.1 (0.9-1.1) Activated Partial Thromboplast Time 28 SEC (23-33) Sodium Level 142 MMOL/L (136-145) Potassium Level 4.5 MMOL/L (3.5-5.1) Chloride Level 105 MMOL/L (98-107) Carbon Dioxide Level 28 MMOL/L (21-32) Anion Gap 9 mmol/L (5-15) Blood Urea Nitrogen 18 mg/dL (7-18) Creatinine 0.4 MG/DL (0.55-1.30) L Estimat Glomerular Filtration Rate > 60 mL/min (>60) Glucose Level 113 MG/DL (74-106) H Calcium Level 8.3 MG/DL (8.5-10.1) L Phosphorus Level 3.8 MG/DL (2.5-4.9) Magnesium Level 2.2 MG/DL (1.8-2.4) Total Bilirubin 0.4 MG/DL (0.2-1.0) Aspartate Amino Transf (AST/SGOT) 28 U/L (15-37) Alanine Aminotransferase (ALT/SGPT) 59 U/L (12-78) Alkaline Phosphatase 133 U/L (46-116) H C-Reactive Protein, Quantitative 0.6 mg/dL (0.00-0.90) Pro-B-Type Natriuretic Peptide 461 pg/mL (0-125) H Total Protein 5.5 G/DL (6.4-8.2) L Albumin 2.3 G/DL (3.4-5.0) L Globulin 3.2 g/dL Albumin/Globulin Ratio 0.7 (1.0-2.7) L Plan Problems: (1) Pneumonia (2) Staphylococcus aureus bacteremia (3) COVID-19 virus infection (4) Chest pain (5) Hypertension (6) Dehydration (7) Electrolyte imbalance (8) DMII (diabetes mellitus, type 2) (9) Protein malnutrition (10) Respiratory insufficiency Assessment & Plan: 64-year-old male with respiratory insufficiency intubated in an intensive care unit. Patient has been unable to safely wean off ventilatory support. Surgery called to evaluate for tracheostomy. After careful evaluation patient is a candidate for tracheostomy. In the meantime will obtain consent. If consent obtained will proceed with scheduling. Thank you for your participation's care will follow recommendations Booker Rausch Apr 26, 2020 09:37
--- NOTE | 2020-04-26 09:38 | Brief Operative Note ---
Immediate Post Operative Note Operative Note Pre-op Diagnosis: respiratory insufficiency covid+ Procedure: tracheostomy Post-op Diagnosis: same as pre-op Surgeon: karen rausch md Anesthesia: general, local Specimen: none Complications: none Condition: stable Fluids: see Estimated Blood Loss: minimal Drains: none Implant(s) used?: No Karen Rausch Apr 26, 2020 09:38
[2020-04-26] MEDS: Solu-MEDROL 40mg Inj IVP SCH ×2 (09:55→22:01)
[2020-04-26] MEDS: Bactrim-DS 1 tab ORAL SCH (09:55)
[2020-04-26] MEDS: Enoxaparin 80mg Inj SUBQ SCH ×2 (09:56→21:00)
--- NOTE | 2020-04-26 10:15 | NUR ---
NURSE NOTES: Dr. Howard updated at the bedside regarding the patient increased in WBC count to 29.4, solu-medrol remains on the patient medication list and made aware the patient was started on Levophed once again. no verbal orders given at this time. Addendum: 04/26/20 at 1731 by Kevin Black RN note does not belong in chart
[2020-04-26] MEDS: Lansoprazole 15mg cap GT SCH ×3 (10:40→22:01)
--- NOTE | 2020-04-26 10:44 | Immediate Post-Op Evaluation ---
Immediate Post-Op Evalulation Immediate Post-Op Evalulation Procedure: Tracheostomy Date of Evaluation: Apr 26, 2020 Time of Evaluation: 08:56 IV Fluids: 150 Blood Products: none Estimated Blood Loss: min Urinary Output: none Blood Pressure Systolic: 146 Blood Pressure Diastolic: 72 Pulse Rate: 86 Respiratory Rate: 22 O2 Sat by Pulse Oximetry: 80 Temperature (Fahrenheit): 97.6 Pain Score (1-10): 1 Nausea: No Vomiting: No Complications none Patient Status: no response, ventilated, none Hydration Status: adequate Tony Rai MD Apr 26, 2020 10:44
--- NOTE | 2020-04-26 10:45 | NUR ---
NURSE NOTES: Dr. Cooper updated at the bedside of the BUN at 95 and creatine at 1.9, and increase from yesterdays 04/26/20. no verbal orders given at this time, Dr. Cooper will review labs and chart and will place orders accordingly. Addendum: 04/26/20 at 1736 by Kevin Black RN placed in incorrect chart
--- NOTE | 2020-04-26 10:46 | NUR ---
NURSE NOTES: Dr. Cooper updated the patient has had his trach placement surgery this morning. chemistry planned resulted with normal laboratory labs, no verbal orders given at this time.
--- NOTE | 2020-04-26 10:49 | Pulmonology Progress Note ---
Subjective ROS Limited/Unobtainable: Yes Interval Events: S/p tracheostomy 04/25/20 Constitutional: Reports: fever HEENT: Repors: no symptoms Respiratory: Reports: dry cough, shortness of breath Cardiovascular: Reports: no symptoms Gastrointestinal/Abdominal: Denies: nausea, vomiting, diarrhea Psychiatric: Denies: depression Skin: Denies: rash Musculoskeletal: Denies: pain Allergies: Coded Allergies: No Known Allergies (Unverified , 02/05/20) Objective Last 24 Hour Vital Signs Date Time Temp Pulse Resp B/P (MAP) Pulse Ox O2 Delivery O2 Flow Rate FiO2 04/26/20 10:44 86 22 80 04/26/20 09:57 22 117/61 Mechanical Ventilator 70 04/26/20 09:15 96 22 165/85 (111) 99 04/26/20 09:00 70 04/26/20 09:00 98.2 103 25 169/85 (113) 95 04/26/20 08:50 90 04/26/20 07:50 55 04/26/20 07:45 Mechanical Ventilator 04/26/20 07:30 51 18 136/65 (88) 100 04/26/20 07:15 52 18 139/65 (89) 100 04/26/20 07:00 49 18 135/64 (87) 100 04/26/20 06:45 47 18 138/66 (90) 100 04/26/20 06:30 47 18 132/65 (87) 100 04/26/20 06:15 52 18 127/60 (82) 100 04/26/20 06:00 21 127/60 Mechanical Ventilator 55 04/26/20 06:00 18 127/60 Mechanical Ventilator 55 04/26/20 06:00 21 127/60 Mechanical Ventilator 55 04/26/20 06:00 52 18 132/66 (88) 100 04/26/20 05:52 21 136/63 Mechanical Ventilator 55 04/26/20 05:25 53 18 55 04/26/20 05:15 54 18 128/60 (82) 100 04/26/20 05:00 53 18 125/58 (80) 100 04/26/20 05:00 18 128/60 Mechanical Ventilator 60 04/26/20 05:00 18 128/60 Mechanical Ventilator 60 04/26/20 05:00 18 128/60 Mechanical Ventilator 60 04/26/20 04:00 98.6 68 16 154/67 (96) 96 04/26/20 04:00 94 04/26/20 04:00 18 143/65 Mechanical Ventilator 60 04/26/20 04:00 18 143/65 Mechanical Ventilator 60 04/26/20 04:00 18 143/65 Mechanical Ventilator 60 04/26/20 04:00 55 04/26/20 04:00 Mechanical Ventilator 04/26/20 03:24 21 123/68 Mechanical Ventilator 55 04/26/20 03:12 58 18 55 04/26/20 03:00 59 15 128/61 (83) 98 04/26/20 03:00 18 123/68 Mechanical Ventilator 60 04/26/20 03:00 18 123/68 Mechanical Ventilator 60 04/26/20 03:00 18 123/68 Mechanical Ventilator 60 04/26/20 02:45 62 0 129/62 (84) 98 04/26/20 02:30 64 0 131/65 (87) 97 04/26/20 02:15 66 16 145/70 (95) 97 04/26/20 02:00 74 17 159/78 (105) 94 04/26/20 02:00 18 145/70 Mechanical Ventilator 60 04/26/20 02:00 18 145/70 Endotracheal Tube 60 04/26/20 02:00 18 145/70 Mechanical Ventilator 60 04/26/20 01:29 25 158/88 Mechanical Ventilator 55 04/26/20 01:29 78 20 55 04/26/20 01:00 55 158/88 Mechanical Ventilator 55 04/26/20 01:00 18 158/88 Mechanical Ventilator 55 04/26/20 01:00 18 158/88 Mechanical Ventilator 55 04/26/20 01:00 78 18 158/88 (111) 94 04/26/20 00:00 55 04/26/20 00:00 18 185/87 Mechanical Ventilator 55 04/26/20 00:00 18 185/87 Mechanical Ventilator 55 04/26/20 00:00 18 138/70 Mechanical Ventilator 55 04/26/20 00:00 98.8 97 26 185/87 (119) 88 04/26/20 00:00 97 04/26/20 00:00 Mechanical Ventilator 04/25/20 23:00 18 138/70 Mechanical Ventilator 55 04/25/20 23:00 18 138/70 Mechanical Ventilator 55 04/25/20 23:00 18 138/70 Mechanical Ventilator 55 04/25/20 23:00 55 18 138/70 (92) 95 04/25/20 22:44 51 18 55 04/25/20 22:30 55 18 127/63 (84) 95 04/25/20 22:00 18 138/70 Mechanical Ventilator 55 04/25/20 22:00 18 127/66 Mechanical Ventilator 55 04/25/20 22:00 18 127/66 Mechanical Ventilator 55 04/25/20 22:00 57 18 133/66 (88) 96 04/25/20 21:45 21 134/66 Mechanical Ventilator 55 04/25/20 21:05 66 18 55 04/25/20 21:00 59 18 128/61 (83) 97 04/25/20 21:00 18 127/66 Mechanical Ventilator 55 04/25/20 21:00 18 127/61 Mechanical Ventilator 55 04/25/20 21:00 18 127/61 Mechanical Ventilator 55 04/25/20 20:00 58 04/25/20 20:00 98.0 56 18 134/66 (88) 96 04/25/20 20:00 18 131/97 Mechanical Ventilator 55 04/25/20 20:00 18 131/64 Mechanical Ventilator 55 04/25/20 20:00 18 127/80 Mechanical Ventilator 55 04/25/20 20:00 Mechanical Ventilator 04/25/20 20:00 55 04/25/20 19:49 21 142/71 Mechanical Ventilator 55 04/25/20 19:22 57 18 55 04/25/20 19:00 57 18 140/70 (93) 96 04/25/20 19:00 18 140/70 Mechanical Ventilator 55 04/25/20 19:00 18 140/70 Mechanical Ventilator 55 04/25/20 19:00 18 140/70 Mechanical Ventilator 55 04/25/20 18:00 57 18 142/69 (93) 97 04/25/20 18:00 18 142/69 Mechanical Ventilator 55 04/25/20 18:00 18 142/69 Mechanical Ventilator 55 04/25/20 18:00 18 142/69 Mechanical Ventilator 55 04/25/20 17:07 18 128/66 Mechanical Ventilator 55 04/25/20 17:05 18 128/66 Mechanical Ventilator 55 04/25/20 17:00 61 18 128/66 (86) 96 04/25/20 17:00 18 128/66 Mechanical Ventilator 55 04/25/20 17:00 18 128/66 Mechanical Ventilator 55 04/25/20 16:00 Mechanical Ventilator 04/25/20 16:00 98.4 61 18 116/59 (78) 96 04/25/20 16:00 18 116/59 Mechanical Ventilator 55 04/25/20 16:00 18 116/59 Mechanical Ventilator 55 04/25/20 16:00 18 116/59 Mechanical Ventilator 55 04/25/20 16:00 55 04/25/20 16:00 61 04/25/20 15:40 57 18 55 04/25/20 15:00 18 122/67 Mechanical Ventilator 55 04/25/20 15:00 18 122/67 Mechanical Ventilator 55 04/25/20 15:00 18 122/67 Mechanical Ventilator 55 04/25/20 15:00 59 18 122/67 (85) 97 04/25/20 14:30 60 18 124/64 (84) 96 04/25/20 14:00 18 130/66 Mechanical Ventilator 55 04/25/20 14:00 18 130/66 Mechanical Ventilator 55 04/25/20 14:00 18 130/66 Mechanical Ventilator 55 04/25/20 14:00 62 18 131/66 (87) 95 04/25/20 13:30 64 18 123/63 (83) 94 04/25/20 13:00 67 18 125/62 (83) 90 04/25/20 13:00 18 120/61 Mechanical Ventilator 55 04/25/20 13:00 18 120/61 Mechanical Ventilator 55 04/25/20 13:00 18 120/61 Mechanical Ventilator 55 04/25/20 12:27 18 124/61 Mechanical Ventilator 55 04/25/20 12:23 18 124/61 Mechanical Ventilator 55 04/25/20 12:00 Mechanical Ventilator 04/25/20 12:00 66 04/25/20 12:00 18 124/61 Mechanical Ventilator 55 04/25/20 12:00 18 124/61 Mechanical Ventilator 55 04/25/20 12:00 18 124/61 Mechanical Ventilator 55 04/25/20 12:00 98.4 66 18 118/61 (80) 92 04/25/20 12:00 55 04/25/20 11:30 67 18 125/62 (83) 92 04/25/20 11:00 70 18 124/60 (81) 93 04/25/20 11:00 18 125/61 Mechanical Ventilator 55 04/25/20 11:00 18 125/61 Mechanical Ventilator 55 04/25/20 11:00 18 125/61 Mechanical Ventilator 55 04/25/20 10:58 63 18 55 Intake and Output 04/25/20 04/26/20 19:00 07:00 Intake Total 1710.066 ml 1069.280 ml Output Total 720 ml 780 ml Balance 990.066 ml 289.280 ml Free Water 100 ml IV Total 890.066 ml 819.280 ml Tube Feeding 600 ml 250 ml Other 120 ml Output Urine Total 720 ml 680 ml Stool Total 100 ml General Appearance: WD/WN, no acute distress HEENT: normocephalic, atraumatic, status post trach Respiratory: chest wall non-tender Cardiovascular: normal rate, regular rhythm Abdomen: normal bowel sounds, soft, non tender, other - obese Laboratory Tests 04/26/20 03:15: White Blood Count 5.7, Red Blood Count 3.18L, Hemoglobin 9.2L, Hematocrit 29.2L, Mean Corpuscular Volume 92, Mean Corpuscular Hemoglobin 28.8, Mean Corpuscular Hemoglobin Concent 31.4L, Red Cell Distribution Width 17.6H, Platelet Count 300, Mean Platelet Volume 6.4L, Neutrophils (%) (Auto) 80.5H, Lymphocytes (%) (Auto) 12.5L, Monocytes (%) (Auto) 6.5, Eosinophils (%) (Auto) 0.0, Basophils (%) (Auto) 0.5, Prothrombin Time 12.0H, Prothromb Time International Ratio 1.1, Activated Partial Thromboplast Time 28, Sodium Level 142, Potassium Level 4.5, Chloride Level 105, Carbon Dioxide Level 28, Anion Gap 9, Blood Urea Nitrogen 18, Creatinine 0.4L, Estimat Glomerular Filtration Rate > 60, Glucose Level 113H , Calcium Level 8.3L, Phosphorus Level 3.8, Magnesium Level 2.2, Total Bilirubin 0.4, Aspartate Amino Transf (AST/SGOT) 28, Alanine Aminotransferase (ALT/SGPT) 59, Alkaline Phosphatase 133H, C-Reactive Protein, Quantitative 0.6, Pro-B-Type Natriuretic Peptide 461H, Total Protein 5.5L, Albumin 2.3L, Globulin 3.2, Albumin/Globulin Ratio 0.7L Current Medications Medications (Trade) Dose Ordered Sig/Dennis Route PRN Reason Start Time Stop Time Status Last Admin Dose Admin Acetaminophen (Tylenol) 650 mg Q4H PRN ORAL Temp >100.5 04/13/20 00:30 05/13/20 00:29 04/13/20 01:30 Bisacodyl (Dulcolax) 10 mg Q12H PRN RECTAL Constipation 03/18/20 16:45 06/16/20 16:44 Chlorhexidine Gluconate (Marlen-Hex 2%) 1 applic DAILY@2000 TOPIC 03/30/20 20:00 06/28/20 19:59 04/25/20 19:48 Dextrose (Dextrose 50%) 25 ml Q30M PRN IV Hypoglycemia 03/29/20 20:45 06/27/20 20:44 Dextrose (Dextrose 50%) 50 ml Q30M PRN IV Hypoglycemia 03/29/20 20:45 06/27/20 20:44 Enoxaparin Sodium (Lovenox) 80 mg EVERY 12 HOURS SUBQ 04/06/20 21:00 07/05/20 20:59 04/26/20 09:56 Fentanyl Citrate 250 ml @ 1 mls/hr Q24H IV 04/25/20 16:30 04/27/20 16:29 04/26/20 01:29 Hydralazine HCl (Apresoline) 10 mg Q4H PRN IV For High Blood Pressure 03/30/20 12:15 06/28/20 12:14 04/25/20 02:04 Insulin Aspart (NovoLOG) Q6HR SUBQ 03/30/20 00:00 06/28/20 00:00 04/25/20 18:03 Labetalol HCl (Normodyne) 10 mg Q4H PRN IV sbp greater tahtn 160 03/28/20 17:30 04/27/20 17:29 04/21/20 06:02 Lansoprazole (Prevacid) 15 mg Q12HR GT 04/20/20 21:00 05/20/20 20:59 04/26/20 10:40 Methylprednisolone Sodium Succinate (Solu-MEDROL) 20 mg Q12HR IVP 04/12/20 21:00 06/20/20 20:59 04/26/20 09:55 Metoclopramide HCl (Reglan) 10 mg Q6H IVP 03/30/20 15:00 04/29/20 14:59 04/26/20 09:55 Midazolam HCl 200 ml @ 0 mls/hr Q24H PRN IV SEDATION 04/25/20 01:00 05/02/20 00:29 04/26/20 09:57 Morphine Sulfate (Morphine Sulfate) 4 mg Q6H PRN IVP agitation despite sedating med 04/21/20 12:45 04/28/20 12:44 04/26/20 00:13 Propofol 100 ml @ 3.266 mls/ hr Q12H IV 04/25/20 03:30 04/27/20 03:29 04/26/20 05:52 Trimethoprim/ Sulfamethoxazole (Bactrim-DS) 1 tab DAILY ORAL 04/23/20 20:00 05/23/20 19:59 04/26/20 09:55 Assessment/Plan Assessment/Plan Assessment/Plan 1.COVID-19 pneumonia. - Completed specific therapies - On solumedrol 20 Iv q 12 2. DVT ppx - on lovenox 3. Hypertension - no longer on meds - Not requiring pressors 4. Leukocytosis; - ID following - Off abx - Candidemia documented 03/18/20 5. Elevated LFT - positive Hep C; treated in the past with IF 6. Respiratory failure -Intubated 03/28/20; s/p tracheostomy 04/25/20 -Family aware - Prognosis guarded - Vt 750; rate 18 -On sedation; added Morphine to Versed/fentanyl 7. Discussed with cardiology -No evidence for cardiac dysfunction or PE 8. AMS -back on sedation - has apparent left arm paresis - Will consider CT brain when more stable S/p new PICC line Noted left upper extremity swelling. Has DVT; on full dose Lovenox Continue sedation, DC propofol given high triglycerides. Continue fentanyl and Versed. Saturations plummeted 04/20/20 when patient became agitated Now fully sedated on 80->100 ->90 ->80 -> 50% FiO2 ; PEEP 5 Will wean down FiO2 as tolerated CXR shows bilateral interstitial changes? fibrosis? John Mata MD Apr 26, 2020 10:49
--- NOTE | 2020-04-26 11:00 | NUR ---
RESPIRATORY NOTE: FiO2 decreased to 50%. PT tolerating well. Kevin MATHEW aware.
--- NOTE | 2020-04-26 11:32 | NUR ---
NURSE NOTES: Blood consent obtained from next of kin, Alyson Bowser at the bedside, and informed of the drop in hgb to 6.9. type and cross have been taken to the laboratory for analysis. awaiting for blood sample to result. Addendum: 04/26/20 at 1733 by Kevin Black RN placed in incorrect chart
--- NOTE | 2020-04-26 11:45 | NUR ---
NURSE NOTES: Dr. Quintero updated in the patient tracheostmy placement this morning, will place order for EGD and PEG placement.
--- NOTE | 2020-04-26 11:50 | Nephrology Progress Note ---
Assessment/Plan Problem List: (1) Dehydration (2) Electrolyte imbalance (3) COVID-19 virus infection (4) Pneumonia (5) DMII (diabetes mellitus, type 2) (6) Protein malnutrition Assessment Azotemia, hypernatremia Hypoalbuminemia Staff Otilia bacteremia COVID-19 isolation, pneumonia, bilateral infiltrate Hypertension Diabetes mellitus History of smoking Plan April 26: Patient is now trached and connected to vent. FiO2 70%. Labs r eviewed. Renal parameters stable. Medication list reviewed. Continue per consultants. April 25: Status quo. Full code. FiO2 55%. No labs drawn today. Continue to monitor electrolytes and renal parameters. Continue per consultants. April 24: Status quo. Full code. Intubated on ventilator. FiO2 65%. Labs reviewed. Renal parameters and electrolytes stable. April 23: Status unchanged. Full code. Intubated on ventilator. FiO2 75%. Labs reviewed. Renal parameters stable. Continue per consultants. April 22: Labs reviewed. Patient remains intubated on ventilator and full code. FiO2 90%. Day 77 hospitalization. Not much to add from renal standpoint of view April 21: No CHEM panel drawn today. FiO2 60%. Patient full code. Continue per consultants. April 20: Labs reviewed. Renal parameters stable. Patient remains full code. Intubated on ventilator with FiO2 currently at 70%. Continue per consultants. April 19: No labs drawn today. Remains full code on FiO2 of 100%. Continue per consultants. April 18: Status quo. Labs reviewed. Renal parameters stable. April 17: Status quo. Intubated on ventilator. Full code. Labs reviewed. Electrolytes and renal parameters stable. Continue per consultants. April 16: Girlfriend in the room. Patient awake. Intubated. Full code. Labs reviewed. Abnormal electrolyte addressed. Continue per consultants. April 15: Labs reviewed. Electrolytes and renal parameters stable. Patient full code. Continues to be intubated on ventilator. April 14: Status quo. Labs reviewed. Remains intubated on ventilator. Full code. Continue per consultants. April 13: Status quo. Labs reviewed. Renal parameters electrolytes stable. Continue per current treatment plan. April 12: On higher FiO2. Will resume Lasix daily. Continue to monitor electrolytes and renal parameters. Per consultants. April 11: FiO2 went up to 85%. Renal parameters and electrolytes reasonably well-maintained. Will monitor serum potassium. Will give IV Lasix. April 10: Status quo. Labs reviewed. Remains intubated on ventilator with FiO2 of 65%. Remains full code. Stable from renal standpoint to view. Repeat vitamin D level on April 08 pending April 09: Status quo. Labs reviewed. Stable from renal standpoint of view. Continue per consultants. April 08: Discussed with RN. Labs reviewed. Clinically improving. Requires lower PEEP. Continue per pulmonary. Continue to monitor renal parameters. April 07: Remains full code and on ventilator. Labs reviewed. Renal parameters and electrolytes stable. Continue per consultants. Blood pressure marginally improved. April 06: Full code. On ventilator. Blood pressure 80-90 systolic. IV Lasix discontinued. Free water through tube feeding ordered. Continue to monitor electrolytes and serum sodium. Down on fentanyl as possible. Discussed with PRIYANKA Brown. Clonidine patch discontinued. April 05: Status quo. Remains full code. Remains intubated. Labs reviewed. Renal parameters stable. Serum sodium 150 unchanged. Continue per consultants. April 04: Remains intubated and on ventilator. Remains full code. Labs reviewed. Serum sodium 150 unchanged. Renal parameters stable. Continue per ID and pulmonary. April 03: Intubated. On ventilator. Full code. Labs reviewed. Serum sodium 150 unchanged. Continue to monitor renal parameters. Continue per pulmonary and ID. April 02: Full code. On ventilator. Discussed with RN. Serum sodium slightly higher. Will cut down on IV Lasix. Continue per consultants. Continue to monitor renal parameters and electrolytes. April 01: Full code. Remains on ventilator. Labs reviewed. Stable from renal standpoint of view. Continue per consultants. March 31: Full code . Remains intubated on ventilator. Labs reviewed. Patient appears toxic. Discussed with RN. Maintenance IV discontinued. Medication list reviewed. Blood pressure medication stopped due to low blood pressure. Levemir insulin stopped. Continue monitor blood sugar and sliding scale insulin. March 30: Full code. On ventilator. Labs reviewed. Clonidine patch dose increased. Lasix increased. 3% saline 1 time ordered. Continue to monitor electrolytes and renal parameters. March 29: Remains full code. On mechanical ventilation. On tube feeding. Will DC TPN. Will start on maintenance IV fluid. Continue to monitor renal parameters. March 28: On BiPAP. Full code. On TPN. Labs reviewed. Discussed with pharmacy. Continue as is. Watch serum potassium. March 27: Remains on BiPAP. No chemistry panel done today. Full code. On TPN. Will check lab tomorrow. March 26: Remains on BiPAP. Remains on TPN. Labs reviewed. Electrolytes and chemistries within normal limits. Continue as is. March 25: Remains on TPN. Labs reviewed. Discussed with pharmacy. Change IV Protonix to p.o. Continue 3% saline infusion with Lasix. Patient full code. March 24: Continue to be on TPN. Labs are reviewed. Aim to collect electrolytes. Discussed with pharmacy. Continue current consultants. March 23: Continues to be on TPN. Labs reviewed. Electrolytes and chemistries all acceptable. Discussed with pharmacy. Continue current management. March 22: On TPN. Labs reviewed. Low sodium noted. 3% saline to be continued. Continue to monitor electrolytes. Discussed with pharmacy. March 21: On TPN. Labs reviewed. Continue 3% saline and Lasix for mild hyponatremia. Continue TPN as these. Discussed with pharmacy. March 20: Remains on TPN. Labs reviewed. Serum sodium higher on IV Lasix and 3% saline infusion. Continue TPN as is. Continue to monitor renal parameters and electrolytes. Discussed with Dr. Mata March 19: Remains on TPN. Labs reviewed. Serum sodium 128. Will give 3% saline with IV Lasix. Continue to monitor electrolytes. No change in TPN composition. Discussed with pharmacy. March 18: Remains on TPN. Labs reviewed. Discussed with pharmacist. Will give 3 doses of IV Lasix 20 mg every 8 hours. Continue to monitor serum sodium electrolytes uric acid. White blood cells down. Continue per consultants. March 17: On TPN. Labs reviewed. Discussed with pharmacist. Sodium content increase. Continue to monitor CMP. Patient continues to have leukocytosis. March 16: On TPN. Labs reviewed. Discussed with pharmacist. Appropriate changes made. Continue to monitor electrolytes. March 15: Remains on TPN. Labs reviewed. Discussed with pharmacist. Continue per current management. March 14: Remains on TPN. Labs reviewed, stable. Vitamin D level low, replacement ordered. Continue to monitor electrolytes and renal parameters. March 13: Patient remains on TPN. Discussed with pharmacist. TPN's sodium content adjusted. Labs reviewed. Continue to monitor electrolytes. Blood pressure remains stable. Continue per consultants. March 12: Patient on TPN. Labs reviewed. CPK remains elevated. Abnormal electrolytes and high blood sugar discussed with pharmacist and TPN adjusted. Continue to monitor labs. Oral Protonix added. Ibuprofen discontinued. Can continue to monitor electrolytes and chemistries. Levemir for high blood sugar added. March 11: Patient on TPN. Labs as of 11:15 AM is still pending. Continue per current treatment plan. Will check labs and adjust TPN as needed. Continue per consultants. March 10: Patient on TPN. Labs reviewed. Electrolytes overall stable. CPK is elevated. Will monitor electrolyte, CPK level, lipid panel. Continue per consultants. Discussed with pharmacist. Discussed with RN. Nutritional evaluation noted. Previously: D5W 100 cc an hour Monitor electrolytes renal parameters TPN and Intralipid ordered Will follow Continue per consultants Dietary consult requested Subjective ROS Limited/Unobtainable: Yes Objective Objective Last 24 Hour Vital Signs Date Time Temp Pulse Resp B/P (MAP) Pulse Ox O2 Delivery O2 Flow Rate FiO2 04/26/20 11:30 68 18 107/58 (74) 96 04/26/20 11:00 72 18 106/58 (74) 96 04/26/20 10:45 72 18 106/57 (73) 96 04/26/20 10:44 86 22 80 04/26/20 10:30 84 18 121/65 (83) 97 04/26/20 10:15 84 17 141/74 (96) 97 04/26/20 10:00 79 18 117/61 (79) 97 04/26/20 09:57 22 117/61 Mechanical Ventilator 70 04/26/20 09:45 81 18 117/61 (79) 96 04/26/20 09:30 92 19 147/72 (97) 95 04/26/20 09:18 93 22 60 04/26/20 09:15 96 22 165/85 (111) 99 04/26/20 09:14 98 23 70 04/26/20 09:00 70 04/26/20 09:00 98.2 103 25 169/85 (113) 95 04/26/20 08:50 90 04/26/20 08:50 104 23 90 04/26/20 07:50 55 04/26/20 07:45 Mechanical Ventilator 04/26/20 07:38 52 18 60 04/26/20 07:30 51 18 136/65 (88) 100 04/26/20 07:15 52 18 139/65 (89) 100 04/26/20 07:00 49 18 135/64 (87) 100 04/26/20 06:45 47 18 138/66 (90) 100 04/26/20 06:30 47 18 132/65 (87) 100 04/26/20 06:15 52 18 127/60 (82) 100 04/26/20 06:00 21 127/60 Mechanical Ventilator 55 04/26/20 06:00 18 127/60 Mechanical Ventilator 55 04/26/20 06:00 21 127/60 Mechanical Ventilator 55 04/26/20 06:00 52 18 132/66 (88) 100 04/26/20 05:52 21 136/63 Mechanical Ventilator 55 04/26/20 05:25 53 18 55 04/26/20 05:15 54 18 128/60 (82) 100 04/26/20 05:00 53 18 125/58 (80) 100 04/26/20 05:00 18 128/60 Mechanical Ventilator 60 04/26/20 05:00 18 128/60 Mechanical Ventilator 60 04/26/20 05:00 18 128/60 Mechanical Ventilator 60 04/26/20 04:00 98.6 68 16 154/67 (96) 96 04/26/20 04:00 94 04/26/20 04:00 18 143/65 Mechanical Ventilator 60 04/26/20 04:00 18 143/65 Mechanical Ventilator 60 04/26/20 04:00 18 143/65 Mechanical Ventilator 60 04/26/20 04:00 55 04/26/20 04:00 Mechanical Ventilator 04/26/20 03:24 21 123/68 Mechanical Ventilator 55 04/26/20 03:12 58 18 55 04/26/20 03:00 59 15 128/61 (83) 98 04/26/20 03:00 18 123/68 Mechanical Ventilator 60 04/26/20 03:00 18 123/68 Mechanical Ventilator 60 04/26/20 03:00 18 123/68 Mechanical Ventilator 60 04/26/20 02:45 62 0 129/62 (84) 98 04/26/20 02:30 64 0 131/65 (87) 97 04/26/20 02:15 66 16 145/70 (95) 97 04/26/20 02:00 74 17 159/78 (105) 94 04/26/20 02:00 18 145/70 Mechanical Ventilator 60 04/26/20 02:00 18 145/70 Endotracheal Tube 60 04/26/20 02:00 18 145/70 Mechanical Ventilator 60 04/26/20 01:29 25 158/88 Mechanical Ventilator 55 04/26/20 01:29 78 20 55 04/26/20 01:00 55 158/88 Mechanical Ventilator 55 04/26/20 01:00 18 158/88 Mechanical Ventilator 55 04/26/20 01:00 18 158/88 Mechanical Ventilator 55 04/26/20 01:00 78 18 158/88 (111) 94 04/26/20 00:00 55 04/26/20 00:00 18 185/87 Mechanical Ventilator 55 04/26/20 00:00 18 185/87 Mechanical Ventilator 55 04/26/20 00:00 18 138/70 Mechanical Ventilator 55 04/26/20 00:00 98.8 97 26 185/87 (119) 88 04/26/20 00:00 97 04/26/20 00:00 Mechanical Ventilator 04/25/20 23:00 18 138/70 Mechanical Ventilator 55 04/25/20 23:00 18 138/70 Mechanical Ventilator 55 04/25/20 23:00 18 138/70 Mechanical Ventilator 55 04/25/20 23:00 55 18 138/70 (92) 95 04/25/20 22:44 51 18 55 04/25/20 22:30 55 18 127/63 (84) 95 04/25/20 22:00 18 138/70 Mechanical Ventilator 55 04/25/20 22:00 18 127/66 Mechanical Ventilator 55 04/25/20 22:00 18 127/66 Mechanical Ventilator 55 04/25/20 22:00 57 18 133/66 (88) 96 04/25/20 21:45 21 134/66 Mechanical Ventilator 55 04/25/20 21:05 66 18 55 04/25/20 21:00 59 18 128/61 (83) 97 04/25/20 21:00 18 127/66 Mechanical Ventilator 55 04/25/20 21:00 18 127/61 Mechanical Ventilator 55 04/25/20 21:00 18 127/61 Mechanical Ventilator 55 04/25/20 20:00 58 04/25/20 20:00 98.0 56 18 134/66 (88) 96 04/25/20 20:00 18 131/97 Mechanical Ventilator 55 04/25/20 20:00 18 131/64 Mechanical Ventilator 55 04/25/20 20:00 18 127/80 Mechanical Ventilator 55 04/25/20 20:00 Mechanical Ventilator 04/25/20 20:00 55 04/25/20 19:49 21 142/71 Mechanical Ventilator 55 04/25/20 19:22 57 18 55 04/25/20 19:00 57 18 140/70 (93) 96 04/25/20 19:00 18 140/70 Mechanical Ventilator 55 04/25/20 19:00 18 140/70 Mechanical Ventilator 55 04/25/20 19:00 18 140/70 Mechanical Ventilator 55 04/25/20 18:00 57 18 142/69 (93) 97 04/25/20 18:00 18 142/69 Mechanical Ventilator 55 04/25/20 18:00 18 142/69 Mechanical Ventilator 55 04/25/20 18:00 18 142/69 Mechanical Ventilator 55 04/25/20 17:07 18 128/66 Mechanical Ventilator 55 04/25/20 17:05 18 128/66 Mechanical Ventilator 55 04/25/20 17:00 61 18 128/66 (86) 96 04/25/20 17:00 18 128/66 Mechanical Ventilator 55 04/25/20 17:00 18 128/66 Mechanical Ventilator 55 04/25/20 16:00 Mechanical Ventilator 04/25/20 16:00 98.4 61 18 116/59 (78) 96 04/25/20 16:00 18 116/59 Mechanical Ventilator 55 04/25/20 16:00 18 116/59 Mechanical Ventilator 55 04/25/20 16:00 18 116/59 Mechanical Ventilator 55 04/25/20 16:00 55 04/25/20 16:00 61 04/25/20 15:40 57 18 55 04/25/20 15:00 18 122/67 Mechanical Ventilator 55 04/25/20 15:00 18 122/67 Mechanical Ventilator 55 04/25/20 15:00 18 122/67 Mechanical Ventilator 55 04/25/20 15:00 59 18 122/67 (85) 97 04/25/20 14:30 60 18 124/64 (84) 96 04/25/20 14:00 18 130/66 Mechanical Ventilator 55 04/25/20 14:00 18 130/66 Mechanical Ventilator 55 04/25/20 14:00 18 130/66 Mechanical Ventilator 55 04/25/20 14:00 62 18 131/66 (87) 95 04/25/20 13:30 64 18 123/63 (83) 94 04/25/20 13:00 67 18 125/62 (83) 90 04/25/20 13:00 18 120/61 Mechanical Ventilator 55 04/25/20 13:00 18 120/61 Mechanical Ventilator 55 04/25/20 13:00 18 120/61 Mechanical Ventilator 55 04/25/20 12:27 18 124/61 Mechanical Ventilator 55 04/25/20 12:23 18 124/61 Mechanical Ventilator 55 04/25/20 12:00 Mechanical Ventilator 04/25/20 12:00 66 04/25/20 12:00 18 124/61 Mechanical Ventilator 55 04/25/20 12:00 18 124/61 Mechanical Ventilator 55 04/25/20 12:00 18 124/61 Mechanical Ventilator 55 04/25/20 12:00 98.4 66 18 118/61 (80) 92 04/25/20 12:00 55 Intake and Output 04/25/20 04/26/20 19:00 07:00 Intake Total 1710.066 ml 1069.280 ml Output Total 720 ml 780 ml Balance 990.066 ml 289.280 ml Free Water 100 ml IV Total 890.066 ml 819.280 ml Tube Feeding 600 ml 250 ml Other 120 ml Output Urine Total 720 ml 680 ml Stool Total 100 ml Current Medications Medications (Trade) Dose Ordered Sig/Dennis Route PRN Reason Start Time Stop Time Status Last Admin Dose Admin Acetaminophen (Tylenol) 650 mg Q4H PRN ORAL Temp >100.5 04/13/20 00:30 05/13/20 00:29 04/13/20 01:30 Bisacodyl (Dulcolax) 10 mg Q12H PRN RECTAL Constipation 03/18/20 16:45 06/16/20 16:44 Chlorhexidine Gluconate (Marlen-Hex 2%) 1 applic DAILY@1999 TOPIC 03/30/20 20:00 06/28/20 19:59 04/25/20 19:48 Dextrose (Dextrose 50%) 25 ml Q30M PRN IV Hypoglycemia 03/29/20 20:45 06/27/20 20:44 Dextrose (Dextrose 50%) 50 ml Q30M PRN IV Hypoglycemia 03/29/20 20:45 06/27/20 20:44 Enoxaparin Sodium (Lovenox) 80 mg EVERY 12 HOURS SUBQ 04/06/20 21:00 07/05/20 20:59 04/26/20 09:56 Fentanyl Citrate 250 ml @ 1 mls/hr Q24H IV 04/25/20 16:30 04/27/20 16:29 04/26/20 01:29 Hydralazine HCl (Apresoline) 10 mg Q4H PRN IV For High Blood Pressure 03/30/20 12:15 06/28/20 12:14 04/25/20 02:04 Insulin Aspart (NovoLOG) Q6HR SUBQ 03/30/20 00:00 06/28/20 00:00 04/25/20 18:03 Labetalol HCl (Normodyne) 10 mg Q4H PRN IV sbp greater tahtn 160 03/28/20 17:30 04/27/20 17:29 04/21/20 06:02 Lansoprazole (Prevacid) 15 mg Q12HR GT 04/20/20 21:00 05/20/20 20:59 04/26/20 10:40 Methylprednisolone Sodium Succinate (Solu-MEDROL) 20 mg Q12HR IVP 04/12/20 21:00 06/20/20 20:59 04/26/20 09:55 Metoclopramide HCl (Reglan) 10 mg Q6H IVP 03/30/20 15:00 04/29/20 14:59 04/26/20 09:55 Midazolam HCl 200 ml @ 0 mls/hr Q24H PRN IV SEDATION 04/25/20 01:00 05/02/20 00:29 04/26/20 09:57 Morphine Sulfate (Morphine Sulfate) 4 mg Q6H PRN IVP agitation despite sedating med 04/21/20 12:45 04/28/20 12:44 04/26/20 00:13 Propofol 100 ml @ 3.266 mls/ hr Q12H IV 04/25/20 03:30 04/27/20 03:29 04/26/20 05:52 Trimethoprim/ Sulfamethoxazole (Bactrim-DS) 1 tab DAILY ORAL 04/23/20 20:00 05/23/20 19:59 04/26/20 09:55 Laboratory Tests 04/26/20 03:15: White Blood Count 5.7, Red Blood Count 3.18L, Hemoglobin 9.2L, Hematocrit 29.2L, Mean Corpuscular Volume 92, Mean Corpuscular Hemoglobin 28.8, Mean Corpuscular Hemoglobin Concent 31.4L, Red Cell Distribution Width 17.6H, Platelet Count 300, Mean Platelet Volume 6.4L, Neutrophils (%) (Auto) 80.5H, Lymphocytes (%) (Auto) 12.5L, Monocytes (%) (Auto) 6.5, Eosinophils (%) (Auto) 0.0, Basophils (%) (Auto) 0.5, Prothrombin Time 12.0H, Prothromb Time International Ratio 1.1, Activated Partial Thromboplast Time 28, Sodium Level 142, Potassium Level 4.5, Chloride Level 105, Carbon Dioxide Level 28, Anion Gap 9, Blood Urea Nitrogen 18, Creatinine 0.4L, Estimat Glomerular Filtration Rate > 60, Glucose Level 113H , Calcium Level 8.3L, Phosphorus Level 3.8, Magnesium Level 2.2, Total Bilirubin 0.4, Aspartate Amino Transf (AST/SGOT) 28, Alanine Aminotransferase (ALT/SGPT) 59, Alkaline Phosphatase 133H, C-Reactive Protein, Quantitative 0.6, Pro-B-Type Natriuretic Peptide 461H, Total Protein 5.5L, Albumin 2.3L, Globulin 3.2, Albumin/Globulin Ratio 0.7L Height (Feet): 5 Height (Inches): 10.00 Weight (Pounds): 243 General Appearance: no apparent distress EENT: other - Now trach to vent Cardiovascular: normal rate Respiratory/Chest: decreased breath sounds Abdomen: distended Rubin Cooper MD Apr 26, 2020 11:50
--- NOTE | 2020-04-26 12:15 | NUR ---
NURSE NOTES: Patient temperature is at 101.4 F taken axillary after repositioning patient, will administer Tylenol and place ice packs. Addendum: 04/26/20 at 1735 by Kevin Black RN placed in incorrect chart
--- NOTE | 2020-04-26 13:53 | NUR ---
RESPIRATORY NOTE: FiO2 increased to 55%. due to saturation falling to 88%. PT is tolerating increase of FIO2 well. Kevin MATHEW aware.
--- NOTE | 2020-04-26 14:35 | NUR ---
NURSE NOTES: Temperature decreased to 100.4 F taken axillary, blood transfusion ready and awaiting in blood bank. awaiting for temperature to decrease/ Addendum: 04/26/20 at 1735 by Kevin Black RN placed in incorrect chart
--- NOTE | 2020-04-26 15:45 | NUR ---
NURSE NOTES: at the bedside with respiratory therapist to change the trach gauze, small tinges dark blood noted on the gauze with a border of clear serosanguineous fluid. There is no bleeding noted coming from the trach while suctioning or from the mouth. he remains sedated at 30mcg/hr and versed at 20mg/hr and propofol at 15mcg/kg/min at rate of 9.798ml/hr. NG-tube remains at 65-66cm at the nares opening, the patient remains NPO for possible PEG and EDG for 04/27/20 will continue to monitor.
--- NOTE | 2020-04-26 16:15 | NUR ---
NURSE NOTES: Temperature is 99.8F taken axillary. cooling blanket obtained from central supply to place blanket under patient. will continue to monitor. Addendum: 04/26/20 at 1734 by Kevin Black RN placed in incorrect chart '
--- NOTE | 2020-04-26 16:41 | NUR ---
NURSE NOTES: Brother called to obtain consent for Esophagogastroduodenoscopy with biopsy and Percutaneous endoscopic gastrostomy with possible tube feeding but no answer on phone number [phone]. will attempt to call back in one hour.
--- NOTE | 2020-04-26 17:01 | NUR ---
NURSE NOTES: Consent for esophagogastroduodenoscopy with possible biopsy and percutaneous endoscopic gastrostomy obtained from brother Ricky Horta at number [phone] verified with cristóbal donis over the telephone.
--- NOTE | 2020-04-26 19:21 | NUR ---
NURSE HAND-OFF REPORT: Latest Vital Signs: Temperature 99.5 , Pulse 79 , B/P 133 /87 , Respiratory Rate 24 , O2 SAT 99 , Mechanical Ventilator, O2 Flow Rate . Vital Sign Comment: EKG Rhythm: Sinus Rhythm Rhythm change?: N Notified?: N -Dr.Toluie INTERIANO Response: Message left await call Latest Hassan Fall Score: 50 Fall Risk: High Risk Safety Measures: Call light Within Reach, Bed Alarm Zone 3, Side Rails Side Rails x3, Bed position Low and Locked. Fall Precautions: Yellow Socks Yellow Gown Door Sign Patient Fall Education Report given to PRIYANKA Hayden.
--- NOTE | 2020-04-26 19:30 | NUR ---
NURSE NOTES: Received pt trache to vent on ac mode, (new trache shiley #8) pt sedated withFentanyl drip at 300mcghr, Versed drip at 20mg/hr for RASS SCORE-2, pt opened eyes to tactile stimulation, SB-SR on the monitor, Bp stable afebrile. Pt with 2-3+ extremities edema, NPO at this time, NGT clamped. Oral care done, rectal tube to gravity with small amt of brownish stool. Brownlee to gravity with moderate amt of jeff yellow urine. Will continue to monitor.
[2020-04-26] MEDS: Dyna-Hex 2% Top Sol 2oz TOPIC SCH (19:48)
--- NOTE | 2020-04-26 22:00 | NUR ---
Patient is not in acute distress, safety measures in place, lines and tubes assessed and in place. Oral care done, no other changes at this time.
[2020-04-27] VITALS (44 sets, daily range): BP systolic 104–198; BP diastolic 59–109
[2020-04-27] MEDS: Morphine Sulfate 4mg/ml Inj IVP PRN ×2 (00:27→05:43)
--- NOTE | 2020-04-27 01:00 | NUR ---
No acute changes to report, bed in low position, refer to trending vitals.
[2020-04-27] MEDS: Metoclopramide 10mg/2ml Inj IVP SCH ×4 (02:56→20:51)
--- NOTE | 2020-04-27 04:00 | NUR ---
Patient bed bath given, safety measures in place, no acute distress.
[2020-04-27] MEDS: [UNRECOGNIZED DRUG - OTHER] IV PRN ×4 (04:05→20:10)
[2020-04-27] MEDS: VERSED IV PRN ×4 (04:05→20:10)
[2020-04-27] MEDS: fentaNYL 2500mcg/NS 250ml 250 ML IV SCH ×4 (05:46→23:22)
[2020-04-27] MEDS: NovoLOG Insulin Flexpen SUBQ SCH ×4 (06:00→18:00)
--- NOTE | 2020-04-27 06:00 | NUR ---
Patient was hypertensive PRN medication given refer to eMAR.
[2020-04-27 06:22] LABS: BASOPHILS % (AUTO) 0.7 % (0.0-2.0); HEMOGLOBIN 10.3 G/DL (14.2-18.0); LYMPHOCYTES % (AUTO) 11.3 % (20.0-45.0); MEAN CORPUSCULAR VOLUME 91 FL (80-99); MONOCYTES % (AUTO) 4.3 % (1.0-10.0); NEUTROPHILS % (AUTO) 83.6 % (45.0-75.0); PLATELET COUNT 312 K/UL (150-450); RED BLOOD COUNT 3.61 M/UL (4.70-6.10); RED CELL DISTRIBUTION WIDTH 17.6 % (11.6-14.8); WHITE BLOOD COUNT 8.1 K/UL (4.8-10.8)
[2020-04-27 06:25] LABS: INR 1.1 (0.9-1.1)
[2020-04-27 06:53] LABS: ANION GAP 8 mmol/L (5-15); BLOOD UREA NITROGEN 13 mg/dL (7-18); CALCIUM 8.9 MG/DL (8.5-10.1); CARBON DIOXIDE 30 MMOL/L (21-32); CHLORIDE 103 MMOL/L (98-107); CREATININE 0.3 MG/DL (0.55-1.30); POTASSIUM 4.4 MMOL/L (3.5-5.1); SODIUM 141 MMOL/L (136-145)
--- NOTE | 2020-04-27 07:08 | NUR ---
RESPIRATORY NOTE: PT received on AC/VC: 18, 750 50%, +5. Alarms are on and audible. Vent circuit is secure and out of the way. Airway is secure and patent. FiO2 was increased to 55% due to desaturation. PT is tolerating increase in FIO2 well. No s/s of acute respiratory distress noted at this time. Kevin MATHEW is aware. Will continue to closely monitor.
--- NOTE | 2020-04-27 07:11 | NUR ---
NURSE HAND-OFF REPORT: Latest Vital Signs: Temperature 98.5 , Pulse 73 , B/P 185 /113 , Respiratory Rate 9 , O2 SAT 97 , Mechanical Ventilator, O2 Flow Rate . Vital Sign Comment: EKG Rhythm: Sinus Rhythm Rhythm change?: N Notified?: N -Dr.Toluie INTERIANO Response: Message left await call Latest Hassan Fall Score: 50 Fall Risk: High Risk Safety Measures: Call light Within Reach, Bed Alarm Zone 3, Side Rails Side Rails x3, Bed position Low and Locked. Fall Precautions: Yellow Socks Yellow Gown Door Sign Patient Fall Education Report given to .
--- NOTE | 2020-04-27 08:49 | 48 Hour Post Anesthesia Eval ---
Post Anesthesia Evaluation Procedure: Tracheostomy Date of Evaluation: Apr 27, 2020 Time of Evaluation: 08:47 Blood Pressure Systolic: 143 0: 76 Pulse Rate: 86 Respiratory Rate: 20 Temperature (Fahrenheit): 97.8 O2 Sat by Pulse Oximetry: 96 Airway: other - tracheostomy i place Nausea: No Vomiting: No Pain Intensity: 1 Hydration Status: adequate Cardiopulmonary Status: oxygenation improved FiO2 down BP stable no pressors Mental Status/LOC: patient returned to baseline Follow-up Care/Observations: n/a Post-Anesthesia Complications: none Follow-up care needed: N/A Tony Rai MD Apr 27, 2020 08:49
--- NOTE | 2020-04-27 09:11 | NUR ---
RD ASSESSMENT & RECOMMENDATIONS SEE CARE ACTIVITY FOR COMPLETE ASSESSMENT DAILY ESTIMATED NEEDS: Needs based on Critical care, wound 81kg abw 22-28 kcals/kg 0849-0963 total kcals 1.25-1.5 g protein/kg 101-122 g total protein 25-30 mL/kg 0929-1543 total fluid mLs NUTRITION DIAGNOSIS: * Inadequate oral intake R/T clinical and respiratory status as evidenced by COVID-19 ++, on continuous BIPAP, prolonged meal refusals, pt is now on TPN, pt is now orally intubated (03/28), now on OGT feeds. * Decreased sodium and fat needs r/t HTN and obesity as evidenced by pt w/ cardiac history, elev BP (159/98-> now improved, on BP meds and diuretics), BMI >30, obese per guidelines. (INACTIVE) CURRENT TF:Glucerna 1.5 goal of 50 + Prosource BID- HELD for trach and PEG ENTERAL NUTRITION RECOMMENDATIONS: Glucerna 1.5 @ 50ml/hr x 24 hrs + Prosource 1pkt BID to provide 1200ml, 1800kcal, 99g prot, 926ml free water * As able, restart Glucerna 1.5 @30ml/hr for 6 hrs, advance as tolerated 10ml/hr q4-6 hrs to goal. * Con't Prosource 1pkt BID (additional 22g prot) to better meet est prot needs. TPN Comment: Now off TPN, on OGT feeds. ADDITIONAL RECOMMENDATIONS: 1) Maintain calibrated bedscale wts 2) Obtain HgA1C for eval 3) Pt now w/ rectal tube-> lactulose now dc'ed, rec probiotics 4) Off tpn, LFT's trending down. 5) Monitor lytes, replete as needed/ phos elev 04/22, monitor trend 6) Monitor BGs- improved 7) On propofol, trend triglycerides/ need for TF rate change.
--- NOTE | 2020-04-27 09:25 | NUR ---
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
[2020-04-27] MEDS: Bactrim-DS 1 tab ORAL SCH (09:28)
[2020-04-27] MEDS: Solu-MEDROL 40mg Inj IVP SCH ×2 (09:29→20:51)
[2020-04-27] MEDS: Lansoprazole 15mg cap GT SCH ×2 (09:29→20:51)
--- NOTE | 2020-04-27 09:30 | NUR ---
NURSE NOTES: Dr. Cooper informed of the patient chemistry levels this morning. no verbal orders given at this time.
[2020-04-27] MEDS: Labetalol 5mg/ml 20ml vial IV PRN (09:31)
[2020-04-27] MEDS: Enoxaparin 80mg Inj SUBQ SCH ×2 (09:39→20:52)
--- NOTE | 2020-04-27 09:53 | Pulmonology Progress Note ---
Subjective ROS Limited/Unobtainable: Yes Interval Events: S/p tracheostomy 04/25/20 Constitutional: Reports: fever HEENT: Repors: no symptoms Respiratory: Reports: dry cough, shortness of breath Cardiovascular: Reports: no symptoms Gastrointestinal/Abdominal: Denies: nausea, vomiting, diarrhea Psychiatric: Denies: depression Skin: Denies: rash Musculoskeletal: Denies: pain Allergies: Coded Allergies: No Known Allergies (Unverified , 02/05/20) Objective Last 24 Hour Vital Signs Date Time Temp Pulse Resp B/P (MAP) Pulse Ox O2 Delivery O2 Flow Rate FiO2 04/27/20 09:31 107 170/100 04/27/20 09:30 21 170/100 Mechanical Ventilator 50 04/27/20 08:49 86 20 96 04/27/20 07:22 50 04/27/20 07:00 78 18 133/69 (90) 97 04/27/20 06:52 73 04/27/20 06:36 185/113 04/27/20 06:13 98.5 04/27/20 06:00 79 9 158/109 (125) 97 04/27/20 06:00 9 158/109 Mechanical Ventilator 50 04/27/20 06:00 9 158/109 Mechanical Ventilator 50 04/27/20 05:46 19 189/96 Mechanical Ventilator 50 04/27/20 05:00 17 198/105 Mechanical Ventilator 50 04/27/20 05:00 20 198/105 Mechanical Ventilator 50 04/27/20 05:00 89 20 198/105 (136) 94 04/27/20 04:50 80 19 50 04/27/20 04:30 91 19 186/97 (126) 93 04/27/20 04:05 17 175/89 Mechanical Ventilator 55 04/27/20 04:05 18 175/89 Mechanical Ventilator 50 04/27/20 04:00 Mechanical Ventilator 04/27/20 04:00 76 17 175/89 (117) 97 04/27/20 04:00 50 04/27/20 03:35 83 17 163/84 (110) 90 04/27/20 03:30 87 17 04/27/20 03:03 53 18 50 04/27/20 03:00 18 105/62 Mechanical Ventilator 55 04/27/20 03:00 18 102/62 Mechanical Ventilator 55 04/27/20 03:00 54 18 105/62 (76) 99 04/27/20 02:30 59 18 106/59 (75) 99 04/27/20 02:00 60 18 113/62 (79) 98 04/27/20 02:00 18 113/62 Mechanical Ventilator 55 04/27/20 02:00 18 113/62 04/27/20 01:08 63 18 50 04/27/20 01:00 18 128/68 Mechanical Ventilator 55 04/27/20 01:00 18 128/68 Mechanical Ventilator 55 04/27/20 01:00 63 18 128/68 (88) 98 04/27/20 00:57 99.0 04/27/20 00:30 71 18 153/89 (110) 98 04/27/20 00:00 77 18 174/92 (119) 98 04/27/20 00:00 55 04/27/20 00:00 18 174/92 Mechanical Ventilator 55 04/27/20 00:00 18 174/92 Mechanical Ventilator 55 04/27/20 00:00 77 18 174/92 (119) 98 04/27/20 00:00 Mechanical Ventilator 04/26/20 23:03 78 18 55 04/26/20 23:00 77 18 154/90 (111) 97 04/26/20 23:00 18 154/90 Mechanical Ventilator 55 04/26/20 23:00 18 154/90 Mechanical Ventilator 55 04/26/20 22:30 90 21 186/100 (128) 95 04/26/20 22:19 22 188/92 Mechanical Ventilator 55 04/26/20 22:00 19 186/100 Mechanical Ventilator 55 04/26/20 22:00 19 186/100 Mechanical Ventilator 55 04/26/20 22:00 84 20 188/92 (124) 97 04/26/20 21:30 69 18 154/79 (104) 99 04/26/20 21:16 71 18 55 04/26/20 21:02 21 154/75 Mechanical Ventilator 55 04/26/20 21:00 70 18 154/75 (101) 99 04/26/20 21:00 18 154/75 Mechanical Ventilator 55 04/26/20 21:00 18 154/75 Mechanical Ventilator 55 04/26/20 20:30 68 18 155/83 (107) 98 04/26/20 20:00 55 04/26/20 20:00 18 166/82 Mechanical Ventilator 55 04/26/20 20:00 18 166/82 Mechanical Ventilator 55 04/26/20 20:00 Mechanical Ventilator 04/26/20 20:00 72 18 166/82 (110) 98 04/26/20 19:30 68 18 160/93 (115) 98 04/26/20 19:09 79 24 55 04/26/20 19:00 80 18 187/93 (124) 97 04/26/20 19:00 18 156/77 Mechanical Ventilator 55 04/26/20 19:00 18 182/88 Mechanical Ventilator 55 04/26/20 18:30 67 18 133/87 (102) 99 04/26/20 18:00 74 18 143/87 (105) 98 04/26/20 18:00 19 180/92 Mechanical Ventilator 55 04/26/20 18:00 18 143/87 Mechanical Ventilator 55 04/26/20 17:30 75 18 148/87 (107) 98 04/26/20 17:00 74 18 156/77 (103) 98 04/26/20 17:00 19 180/92 Mechanical Ventilator 55 04/26/20 17:00 18 156/77 Mechanical Ventilator 55 04/26/20 16:30 82 18 163/81 (108) 96 04/26/20 16:06 22 180/92 Mechanical Ventilator 55 04/26/20 16:00 86 04/26/20 16:00 55 04/26/20 16:00 19 180/92 Mechanical Ventilator 55 04/26/20 16:00 19 180/92 Mechanical Ventilator 55 04/26/20 16:00 99.5 92 20 180/92 (121) 95 04/26/20 16:00 Mechanical Ventilator 04/26/20 15:30 83 21 146/85 (105) 96 04/26/20 15:21 87 19 55 04/26/20 15:00 89 20 166/91 (116) 95 04/26/20 15:00 18 151/89 Mechanical Ventilator 55 04/26/20 15:00 18 151/89 Mechanical Ventilator 55 04/26/20 15:00 18 151/89 Mechanical Ventilator 55 04/26/20 15:00 87 17 166/91 (116) 96 04/26/20 14:30 91 23 183/94 (123) 96 04/26/20 14:00 55 04/26/20 14:00 83 18 179/90 (119) 95 04/26/20 14:00 19 160/82 Mechanical Ventilator 55 04/26/20 14:00 19 165/96 Mechanical Ventilator 55 04/26/20 14:00 18 165/96 Mechanical Ventilator 55 04/26/20 13:53 86 21 55 04/26/20 13:30 90 19 174/79 (110) 90 04/26/20 13:00 18 124/77 Mechanical Ventilator 50 04/26/20 13:00 18 124/77 Mechanical Ventilator 50 04/26/20 13:00 19 172/85 Mechanical Ventilator 55 04/26/20 13:00 96 19 177/90 (119) 89 04/26/20 12:30 66 18 121/64 (83) 93 04/26/20 12:00 98 04/26/20 12:00 50 04/26/20 12:00 18 107/61 Mechanical Ventilator 50 04/26/20 12:00 18 107/61 Mechanical Ventilator 50 04/26/20 12:00 18 106/57 Mechanical Ventilator 50 04/26/20 12:00 97.9 65 18 108/59 (75) 92 04/26/20 12:00 Mechanical Ventilator 04/26/20 11:49 18 106/71 Mechanical Ventilator 60 04/26/20 11:30 68 18 107/58 (74) 96 04/26/20 11:00 72 18 106/58 (74) 96 04/26/20 11:00 66 18 50 04/26/20 11:00 18 106/57 Mechanical Ventilator 50 04/26/20 11:00 18 105/60 Mechanical Ventilator 60 04/26/20 11:00 18 117/61 Mechanical Ventilator 50 04/26/20 10:45 72 18 106/57 (73) 96 04/26/20 10:44 86 22 80 04/26/20 10:30 84 18 121/65 (83) 97 04/26/20 10:15 84 17 141/74 (96) 97 04/26/20 10:00 18 117/61 Mechanical Ventilator 50 04/26/20 10:00 18 117/61 Mechanical Ventilator 60 04/26/20 10:00 5 13/3 04/26/20 10:00 79 18 117/61 (79) 97 04/26/20 09:57 22 117/61 Mechanical Ventilator 70 Intake and Output 04/26/20 04/27/20 19:00 07:00 Intake Total 931.902 ml 692.6 ml Output Total 750 ml 900 ml Balance 181.902 ml -207.4 ml Free Water 80 ml 10 ml IV Total 821.902 ml 662.6 ml Tube Feeding 0 ml 0 ml Other 30 ml 20 ml Output Urine Total 750 ml 900 ml General Appearance: WD/WN, no acute distress HEENT: normocephalic, atraumatic, status post trach Respiratory: chest wall non-tender Cardiovascular: normal rate, regular rhythm Abdomen: normal bowel sounds, soft, non tender, other - obese Laboratory Tests 04/27/20 05:08: White Blood Count 8.1, Red Blood Count 3.61L, Hemoglobin 10.3L, Hematocrit 33.0L , Mean Corpuscular Volume 91, Mean Corpuscular Hemoglobin 28.4, Mean Corpuscular Hemoglobin Concent 31.1L, Red Cell Distribution Width 17.6H, Platelet Count 312, Mean Platelet Volume 6.4L, Neutrophils (%) (Auto) 83.6H, Lymphocytes (%) (Auto) 11.3L, Monocytes (%) (Auto) 4.3, Eosinophils (%) (Auto) 0.0, Basophils (%) (Auto) 0.7, Prothrombin Time 12.0H, Prothromb Time International Ratio 1.1, Activated Partial Thromboplast Time 26, Sodium Level 141, Potassium Level 4.4, Chloride Level 103, Carbon Dioxide Level 30, Anion Gap 8, Blood Urea Nitrogen 13, Creatinine 0.3L, Estimat Glomerular Filtration Rate > 60, Glucose Level 99, Calcium Level 8.9 Current Medications Medications (Trade) Dose Ordered Sig/Dennis Route PRN Reason Start Time Stop Time Status Last Admin Dose Admin Acetaminophen (Tylenol) 650 mg Q4H PRN ORAL Temp >100.5 04/13/20 00:30 05/13/20 00:29 04/13/20 01:30 Bisacodyl (Dulcolax) 10 mg Q12H PRN RECTAL Constipation 03/18/20 16:45 06/16/20 16:44 Chlorhexidine Gluconate (Marlen-Hex 2%) 1 applic DAILY@1999 TOPIC 03/30/20 20:00 06/28/20 19:59 04/26/20 19:48 Dextrose (Dextrose 50%) 25 ml Q30M PRN IV Hypoglycemia 03/29/20 20:45 06/27/20 20:44 Dextrose (Dextrose 50%) 50 ml Q30M PRN IV Hypoglycemia 03/29/20 20:45 06/27/20 20:44 Enoxaparin Sodium (Lovenox) 80 mg EVERY 12 HOURS SUBQ 04/06/20 21:00 07/05/20 20:59 04/27/20 09:39 Fentanyl Citrate 250 ml @ 1 mls/hr Q24H IV 04/25/20 16:30 04/27/20 16:29 04/27/20 05:46 Hydralazine HCl (Apresoline) 10 mg Q4H PRN IV For High Blood Pressure 03/30/20 12:15 06/28/20 12:14 04/27/20 06:36 Insulin Aspart (NovoLOG) Q6HR SUBQ 03/30/20 00:00 06/28/20 00:00 04/25/20 18:03 Labetalol HCl (Normodyne) 10 mg Q4H PRN IV sbp greater tahtn 160 03/28/20 17:30 04/27/20 17:29 04/27/20 09:31 Lansoprazole (Prevacid) 15 mg Q12HR GT 04/20/20 21:00 05/20/20 20:59 04/27/20 09:29 Methylprednisolone Sodium Succinate (Solu-MEDROL) 20 mg Q12HR IVP 04/12/20 21:00 06/20/20 20:59 04/27/20 09:29 Metoclopramide HCl (Reglan) 10 mg Q6H IVP 03/30/20 15:00 04/29/20 14:59 04/27/20 09:29 Midazolam HCl 200 ml @ 0 mls/hr Q24H PRN IV SEDATION 04/25/20 01:00 05/02/20 00:29 04/27/20 09:30 Morphine Sulfate (Morphine Sulfate) 4 mg Q6H PRN IVP agitation despite sedating med 04/21/20 12:45 04/28/20 12:44 04/27/20 05:43 Trimethoprim/ Sulfamethoxazole (Bactrim-DS) 1 tab DAILY ORAL 04/23/20 20:00 05/23/20 19:59 04/27/20 09:28 Assessment/Plan Assessment/Plan Assessment/Plan 1.COVID-19 pneumonia. - Completed specific therapies - On solumedrol 20 Iv q 12 2. DVT ppx - on lovenox 3. Hypertension - no longer on meds - Not requiring pressors 4. Leukocytosis; - ID following - Off abx - Candidemia documented 03/18/20 5. Elevated LFT - positive Hep C; treated in the past with IF 6. Respiratory failure -Intubated 03/28/20; s/p tracheostomy 04/25/20 -Family aware - Prognosis guarded - Vt 750; rate 18 -On sedation; added Morphine to Versed/fentanyl 7. Discussed with cardiology -No evidence for cardiac dysfunction or PE 8. AMS -back on sedation - has apparent left arm paresis - Will consider CT brain when more stable S/p new PICC line Noted left upper extremity swelling. Has DVT; on full dose Lovenox Continue sedation, DC propofol given high triglycerides. Continue fentanyl and Versed. Saturations plummeted 04/20/20 when patient became agitated Now fully sedated on 80->100 ->90 ->80 -> 50% FiO2 ; PEEP 5 Will wean down FiO2 as tolerated CXR shows bilateral interstitial changes? fibrosis? Plans noted for John Bender MD Apr 27, 2020 09:53
--- NOTE | 2020-04-27 10:46 | Nephrology Progress Note ---
Assessment/Plan Problem List: (1) Dehydration (2) Electrolyte imbalance (3) COVID-19 virus infection (4) Pneumonia (5) DMII (diabetes mellitus, type 2) (6) Protein malnutrition Assessment Azotemia, hypernatremia Hypoalbuminemia Staff Otilia bacteremia COVID-19 isolation, pneumonia, bilateral infiltrate Hypertension Diabetes mellitus History of smoking Plan April 27: Status quo. Labs reviewed. Medication list reviewed. Stable from renal standpoint of view. Abnormal electrolytes addressed. April 26: Patient is now trached and connected to vent. FiO2 70%. Labs reviewed. Renal parameters stable. Medication list reviewed. Continue per consultants. April 25: Status quo. Full code. FiO2 55%. No labs drawn today. Continue to monitor electrolytes and renal parameters. Continue per consultants. April 24: Status quo. Full code. Intubated on ventilator. FiO2 65%. Labs reviewed. Renal parameters and electrolytes stable. April 23: Status unchanged. Full code. Intubated on ventilator. FiO2 75%. Labs reviewed. Renal parameters stable. Continue per consultants. April 22: Labs reviewed. Patient remains intubated on ventilator and full code. FiO2 90%. Day 77 hospitalization. Not much to add from renal standpoint of view April 21: No CHEM panel drawn today. FiO2 60%. Patient full code. Continue per consultants. April 20: Labs reviewed. Renal parameters stable. Patient remains full code. Intubated on ventilator with FiO2 currently at 70%. Continue per consultants. April 19: No labs drawn today. Remains full code on FiO2 of 100%. Continue per consultants. April 18: Status quo. Labs reviewed. Renal parameters stable. April 17: Status quo. Intubated on ventilator. Full code. Labs reviewed. Electrolytes and renal parameters stable. Continue per consultants. April 16: Girlfriend in the room. Patient awake. Intubated. Full code. Labs reviewed. Abnormal electrolyte addressed. Continue per consultants. April 15: Labs reviewed. Electrolytes and renal parameters stable. Patient full code. Continues to be intubated on ventilator. April 14: Status quo. Labs reviewed. Remains intubated on ventilator. Full code. Continue per consultants. April 13: Status quo. Labs reviewed. Renal parameters electrolytes stable. Continue per current treatment plan. April 12: On higher FiO2. Will resume Lasix daily. Continue to monitor electrolytes and renal parameters. Per consultants. April 11: FiO2 went up to 85%. Renal parameters and electrolytes reasonably well-maintained. Will monitor serum potassium. Will give IV Lasix. April 10: Status quo. Labs reviewed. Remains intubated on ventilator with FiO2 of 65%. Remains full code. Stable from renal standpoint to view. Repeat vitamin D level on April 08 pending April 09: Status quo. Labs reviewed. Stable from renal standpoint of view. Continue per consultants. April 08: Discussed with RN. Labs reviewed. Clinically improving. Requires lower PEEP. Continue per pulmonary. Continue to monitor renal parameters. April 07: Remains full code and on ventilator. Labs reviewed. Renal parameters and electrolytes stable. Continue per consultants. Blood pressure marginally improved. April 06: Full code. On ventilator. Blood pressure 80-90 systolic. IV Lasix discontinued. Free water through tube feeding ordered. Continue to monitor electrolytes and serum sodium. Down on fentanyl as possible. Discussed with PRIYANKA Brown. Clonidine patch discontinued. April 05: Status quo. Remains full code. Remains intubated. Labs reviewed. Renal parameters stable. Serum sodium 150 unchanged. Continue per consultants. April 04: Remains intubated and on ventilator. Remains full code. Labs reviewed. Serum sodium 150 unchanged. Renal parameters stable. Continue per ID and pulmonary. April 03: Intubated. On ventilator. Full code. Labs reviewed. Serum sodium 150 unchanged. Continue to monitor renal parameters. Continue per pulmonary and ID. April 02: Full code. On ventilator. Discussed with RN. Serum sodium slightly higher. Will cut down on IV Lasix. Continue per consultants. Continue to monitor renal parameters and electrolytes. April 01: Full code. Remains on ventilator. Labs reviewed. Stable from renal standpoint of view. Continue per consultants. March 31: Full code . Remains intubated on ventilator. Labs reviewed. Patient appears toxic. Discussed with RN. Maintenance IV discontinued. Medication list reviewed. Blood pressure medication stopped due to low blood pressure. Levemir insulin stopped. Continue monitor blood sugar and sliding scale insulin. March 30: Full code. On ventilator. Labs reviewed. Clonidine patch dose increased. Lasix increased. 3% saline 1 time ordered. Continue to monitor electrolytes and renal parameters. March 29: Remains full code. On mechanical ventilation. On tube feeding. Will DC TPN. Will start on maintenance IV fluid. Continue to monitor renal parameters. March 28: On BiPAP. Full code. On TPN. Labs reviewed. Discussed with pharmacy. Continue as is. Watch serum potassium. March 27: Remains on BiPAP. No chemistry panel done today. Full code. On TPN. Will check lab tomorrow. March 26: Remains on BiPAP. Remains on TPN. Labs reviewed. Electrolytes and chemistries within normal limits. Continue as is. March 25: Remains on TPN. Labs reviewed. Discussed with pharmacy. Change IV Protonix to p.o. Continue 3% saline infusion with Lasix. Patient full code. March 24: Continue to be on TPN. Labs are reviewed. Aim to collect electrolytes. Discussed with pharmacy. Continue current consultants. March 23: Continues to be on TPN. Labs reviewed. Electrolytes and chemistries all acceptable. Discussed with pharmacy. Continue current management. March 22: On TPN. Labs reviewed. Low sodium noted. 3% saline to be continued. Continue to monitor electrolytes. Discussed with pharmacy. March 21: On TPN. Labs reviewed. Continue 3% saline and Lasix for mild hyponatremia. Continue TPN as these. Discussed with pharmacy. March 20: Remains on TPN. Labs reviewed. Serum sodium higher on IV Lasix and 3% saline infusion. Continue TPN as is. Continue to monitor renal parameters and electrolytes. Discussed with Dr. Mata March 19: Remains on TPN. Labs reviewed. Serum sodium 128. Will give 3% saline with IV Lasix. Continue to monitor electrolytes. No change in TPN composition. Discussed with pharmacy. March 18: Remains on TPN. Labs reviewed. Discussed with pharmacist. Will give 3 doses of IV Lasix 20 mg every 8 hours. Continue to monitor serum sodium electrolytes uric acid. White blood cells down. Continue per consultants. March 17: On TPN. Labs reviewed. Discussed with pharmacist. Sodium content increase. Continue to monitor CMP. Patient continues to have leukocytosis. March 16: On TPN. Labs reviewed. Discussed with pharmacist. Appropriate changes made. Continue to monitor electrolytes. March 15: Remains on TPN. Labs reviewed. Discussed with pharmacist. Continue per current management. March 14: Remains on TPN. Labs reviewed, stable. Vitamin D level low, replacement ordered. Continue to monitor electrolytes and renal parameters. March 13: Patient remains on TPN. Discussed with pharmacist. TPN's sodium content adjusted. Labs reviewed. Continue to monitor electrolytes. Blood pressure remains stable. Continue per consultants. March 12: Patient on TPN. Labs reviewed. CPK remains elevated. Abnormal electrolytes and high blood sugar discussed with pharmacist and TPN adjusted. Continue to monitor labs. Oral Protonix added. Ibuprofen discontinued. Can continue to monitor electrolytes and chemistries. Levemir for high blood sugar added. March 11: Patient on TPN. Labs as of 11:15 AM is still pending. Continue per current treatment plan. Will check labs and adjust TPN as needed. Continue per consultants. March 10: Patient on TPN. Labs reviewed. Electrolytes overall stable. CPK is elevated. Will monitor electrolyte, CPK level, lipid panel. Continue per consultants. Discussed with pharmacist. Discussed with RN. Nutritional evaluation noted. Previously: D5W 100 cc an hour Monitor electrolytes renal parameters TPN and Intralipid ordered Will follow Continue per consultants Dietary consult requested Subjective ROS Limited/Unobtainable: Yes Objective Objective Last 24 Hour Vital Signs Date Time Temp Pulse Resp B/P (MAP) Pulse Ox O2 Delivery O2 Flow Rate FiO2 04/27/20 10:00 96 12 151/68 (95) 92 04/27/20 09:31 107 170/100 04/27/20 09:30 111 21 184/87 (119) 93 04/27/20 09:30 21 170/100 Mechanical Ventilator 50 04/27/20 09:00 109 17 170/100 (123) 94 04/27/20 08:49 86 20 96 04/27/20 08:30 112 19 161/85 (110) 93 04/27/20 08:00 97.6 115 29 181/89 (119) 94 04/27/20 07:30 114 17 188/103 (131) 93 04/27/20 07:22 50 04/27/20 07:00 78 18 133/69 (90) 97 04/27/20 06:52 73 04/27/20 06:36 185/113 04/27/20 06:13 98.5 04/27/20 06:00 79 9 158/109 (125) 97 04/27/20 06:00 9 158/109 Mechanical Ventilator 50 04/27/20 06:00 9 158/109 Mechanical Ventilator 50 04/27/20 05:46 19 189/96 Mechanical Ventilator 50 04/27/20 05:00 17 198/105 Mechanical Ventilator 50 04/27/20 05:00 20 198/105 Mechanical Ventilator 50 04/27/20 05:00 89 20 198/105 (136) 94 04/27/20 04:50 80 19 50 04/27/20 04:30 91 19 186/97 (126) 93 04/27/20 04:05 17 175/89 Mechanical Ventilator 55 04/27/20 04:05 18 175/89 Mechanical Ventilator 50 04/27/20 04:00 Mechanical Ventilator 04/27/20 04:00 76 17 175/89 (117) 97 04/27/20 04:00 50 04/27/20 03:35 83 17 163/84 (110) 90 04/27/20 03:30 87 17 04/27/20 03:03 53 18 50 04/27/20 03:00 18 105/62 Mechanical Ventilator 55 04/27/20 03:00 18 102/62 Mechanical Ventilator 55 04/27/20 03:00 54 18 105/62 (76) 99 04/27/20 02:30 59 18 106/59 (75) 99 04/27/20 02:00 60 18 113/62 (79) 98 04/27/20 02:00 18 113/62 Mechanical Ventilator 55 04/27/20 02:00 18 113/62 04/27/20 01:08 63 18 50 04/27/20 01:00 18 128/68 Mechanical Ventilator 55 04/27/20 01:00 18 128/68 Mechanical Ventilator 55 04/27/20 01:00 63 18 128/68 (88) 98 04/27/20 00:57 99.0 04/27/20 00:30 71 18 153/89 (110) 98 04/27/20 00:00 77 18 174/92 (119) 98 04/27/20 00:00 55 04/27/20 00:00 18 174/92 Mechanical Ventilator 55 04/27/20 00:00 18 174/92 Mechanical Ventilator 55 04/27/20 00:00 77 18 174/92 (119) 98 04/27/20 00:00 Mechanical Ventilator 04/26/20 23:03 78 18 55 04/26/20 23:00 77 18 154/90 (111) 97 04/26/20 23:00 18 154/90 Mechanical Ventilator 55 04/26/20 23:00 18 154/90 Mechanical Ventilator 55 04/26/20 22:30 90 21 186/100 (128) 95 04/26/20 22:19 22 188/92 Mechanical Ventilator 55 04/26/20 22:00 19 186/100 Mechanical Ventilator 55 04/26/20 22:00 19 186/100 Mechanical Ventilator 55 04/26/20 22:00 84 20 188/92 (124) 97 04/26/20 21:30 69 18 154/79 (104) 99 04/26/20 21:16 71 18 55 04/26/20 21:02 21 154/75 Mechanical Ventilator 55 04/26/20 21:00 70 18 154/75 (101) 99 04/26/20 21:00 18 154/75 Mechanical Ventilator 55 04/26/20 21:00 18 154/75 Mechanical Ventilator 55 04/26/20 20:30 68 18 155/83 (107) 98 04/26/20 20:00 55 04/26/20 20:00 18 166/82 Mechanical Ventilator 55 04/26/20 20:00 18 166/82 Mechanical Ventilator 55 04/26/20 20:00 Mechanical Ventilator 04/26/20 20:00 72 18 166/82 (110) 98 04/26/20 19:30 68 18 160/93 (115) 98 04/26/20 19:09 79 24 55 04/26/20 19:00 80 18 187/93 (124) 97 04/26/20 19:00 18 156/77 Mechanical Ventilator 55 04/26/20 19:00 18 182/88 Mechanical Ventilator 55 04/26/20 18:30 67 18 133/87 (102) 99 04/26/20 18:00 74 18 143/87 (105) 98 04/26/20 18:00 19 180/92 Mechanical Ventilator 55 04/26/20 18:00 18 143/87 Mechanical Ventilator 55 04/26/20 17:30 75 18 148/87 (107) 98 04/26/20 17:00 74 18 156/77 (103) 98 04/26/20 17:00 19 180/92 Mechanical Ventilator 55 04/26/20 17:00 18 156/77 Mechanical Ventilator 55 04/26/20 16:30 82 18 163/81 (108) 96 04/26/20 16:06 22 180/92 Mechanical Ventilator 55 04/26/20 16:00 86 04/26/20 16:00 55 04/26/20 16:00 19 180/92 Mechanical Ventilator 55 04/26/20 16:00 19 180/92 Mechanical Ventilator 55 04/26/20 16:00 99.5 92 20 180/92 (121) 95 04/26/20 16:00 Mechanical Ventilator 04/26/20 15:30 83 21 146/85 (105) 96 04/26/20 15:21 87 19 55 04/26/20 15:00 89 20 166/91 (116) 95 04/26/20 15:00 18 151/89 Mechanical Ventilator 55 04/26/20 15:00 18 151/89 Mechanical Ventilator 55 04/26/20 15:00 18 151/89 Mechanical Ventilator 55 04/26/20 15:00 87 17 166/91 (116) 96 04/26/20 14:30 91 23 183/94 (123) 96 04/26/20 14:00 55 04/26/20 14:00 83 18 179/90 (119) 95 04/26/20 14:00 19 160/82 Mechanical Ventilator 55 04/26/20 14:00 19 165/96 Mechanical Ventilator 55 04/26/20 14:00 18 165/96 Mechanical Ventilator 55 04/26/20 13:53 86 21 55 04/26/20 13:30 90 19 174/79 (110) 90 04/26/20 13:00 18 124/77 Mechanical Ventilator 50 04/26/20 13:00 18 124/77 Mechanical Ventilator 50 04/26/20 13:00 19 172/85 Mechanical Ventilator 55 04/26/20 13:00 96 19 177/90 (119) 89 04/26/20 12:30 66 18 121/64 (83) 93 04/26/20 12:00 98 04/26/20 12:00 50 04/26/20 12:00 18 107/61 Mechanical Ventilator 50 04/26/20 12:00 18 107/61 Mechanical Ventilator 50 04/26/20 12:00 18 106/57 Mechanical Ventilator 50 04/26/20 12:00 97.9 65 18 108/59 (75) 92 04/26/20 12:00 Mechanical Ventilator 04/26/20 11:49 18 106/71 Mechanical Ventilator 60 04/26/20 11:30 68 18 107/58 (74) 96 04/26/20 11:00 72 18 106/58 (74) 96 04/26/20 11:00 66 18 50 04/26/20 11:00 18 106/57 Mechanical Ventilator 50 04/26/20 11:00 18 105/60 Mechanical Ventilator 60 04/26/20 11:00 18 117/61 Mechanical Ventilator 50 Intake and Output 04/26/20 04/27/20 19:00 07:00 Intake Total 931.902 ml 692.6 ml Output Total 750 ml 900 ml Balance 181.902 ml -207.4 ml Free Water 80 ml 10 ml IV Total 821.902 ml 662.6 ml Tube Feeding 0 ml 0 ml Other 30 ml 20 ml Output Urine Total 750 ml 900 ml Current Medications Medications (Trade) Dose Ordered Sig/Dennis Route PRN Reason Start Time Stop Time Status Last Admin Dose Admin Acetaminophen (Tylenol) 650 mg Q4H PRN ORAL Temp >100.5 04/13/20 00:30 05/13/20 00:29 04/13/20 01:30 Bisacodyl (Dulcolax) 10 mg Q12H PRN RECTAL Constipation 03/18/20 16:45 06/16/20 16:44 Chlorhexidine Gluconate (Marlen-Hex 2%) 1 applic DAILY@2000 TOPIC 03/30/20 20:00 06/28/20 19:59 04/26/20 19:48 Dextrose (Dextrose 50%) 25 ml Q30M PRN IV Hypoglycemia 03/29/20 20:45 06/27/20 20:44 Dextrose (Dextrose 50%) 50 ml Q30M PRN IV Hypoglycemia 03/29/20 20:45 06/27/20 20:44 Enoxaparin Sodium (Lovenox) 80 mg EVERY 12 HOURS SUBQ 04/06/20 21:00 07/05/20 20:59 04/27/20 09:39 Fentanyl Citrate 250 ml @ 1 mls/hr Q24H IV 04/25/20 16:30 04/27/20 16:29 04/27/20 05:46 Hydralazine HCl (Apresoline) 10 mg Q4H PRN IV For High Blood Pressure 03/30/20 12:15 06/28/20 12:14 04/27/20 06:36 Insulin Aspart (NovoLOG) Q6HR SUBQ 03/30/20 00:00 06/28/20 00:00 04/25/20 18:03 Labetalol HCl (Normodyne) 10 mg Q4H PRN IV sbp greater tahtn 160 03/28/20 17:30 04/27/20 17:29 04/27/20 09:31 Lansoprazole (Prevacid) 15 mg Q12HR GT 04/20/20 21:00 05/20/20 20:59 04/27/20 09:29 Methylprednisolone Sodium Succinate (Solu-MEDROL) 20 mg Q12HR IVP 04/12/20 21:00 06/20/20 20:59 04/27/20 09:29 Metoclopramide HCl (Reglan) 10 mg Q6H IVP 03/30/20 15:00 04/29/20 14:59 04/27/20 09:29 Midazolam HCl 200 ml @ 0 mls/hr Q24H PRN IV SEDATION 04/25/20 01:00 05/02/20 00:29 04/27/20 09:30 Morphine Sulfate (Morphine Sulfate) 4 mg Q6H PRN IVP agitation despite sedating med 04/21/20 12:45 04/28/20 12:44 04/27/20 05:43 Quetiapine Fumarate (SEROqueL) 50 mg Q12HR ORAL 04/27/20 21:00 06/11/20 20:59 Trimethoprim/ Sulfamethoxazole (Bactrim-DS) 1 tab DAILY ORAL 04/23/20 20:00 05/23/20 19:59 04/27/20 09:28 Laboratory Tests 04/27/20 05:08: White Blood Count 8.1, Red Blood Count 3.61L, Hemoglobin 10.3L, Hematocrit 33.0L , Mean Corpuscular Volume 91, Mean Corpuscular Hemoglobin 28.4, Mean Corpuscular Hemoglobin Concent 31.1L, Red Cell Distribution Width 17.6H, Platelet Count 312, Mean Platelet Volume 6.4L, Neutrophils (%) (Auto) 83.6H, Lymphocytes (%) (Auto) 11.3L, Monocytes (%) (Auto) 4.3, Eosinophils (%) (Auto) 0.0, Basophils (%) (Auto) 0.7, Prothrombin Time 12.0H, Prothromb Time International Ratio 1.1, Activated Partial Thromboplast Time 26, Sodium Level 141, Potassium Level 4.4, Chloride Level 103, Carbon Dioxide Level 30, Anion Gap 8, Blood Urea Nitrogen 13, Creatinine 0.3L, Estimat Glomerular Filtration Rate > 60, Glucose Level 99, Calcium Level 8.9 Height (Feet): 5 Height (Inches): 10.00 Weight (Pounds): 243 General Appearance: no apparent distress EENT: other - Trach to vent Cardiovascular: tachycardia Respiratory/Chest: decreased breath sounds Abdomen: distended Rubin Cooper MD Apr 27, 2020 10:46
--- NOTE | 2020-04-27 11:21 | Surgery Progress Note ---
Surgery Progress Note Subjective Procedure Performed tracheostomy Additional Comments doing well post trach no n/v weaning Objective Last 24 Hour Vital Signs Date Time Temp Pulse Resp B/P (MAP) Pulse Ox O2 Delivery O2 Flow Rate FiO2 04/27/20 10:00 96 12 151/68 (95) 92 04/27/20 09:31 107 170/100 04/27/20 09:30 111 21 184/87 (119) 93 04/27/20 09:30 21 170/100 Mechanical Ventilator 50 04/27/20 09:00 109 17 170/100 (123) 94 04/27/20 08:49 86 20 96 04/27/20 08:30 112 19 161/85 (110) 93 04/27/20 08:00 97.6 115 29 181/89 (119) 94 04/27/20 07:30 114 17 188/103 (131) 93 04/27/20 07:22 50 04/27/20 07:00 78 18 133/69 (90) 97 04/27/20 06:52 73 04/27/20 06:36 185/113 04/27/20 06:13 98.5 04/27/20 06:00 79 9 158/109 (125) 97 04/27/20 06:00 9 158/109 Mechanical Ventilator 50 04/27/20 06:00 9 158/109 Mechanical Ventilator 50 04/27/20 05:46 19 189/96 Mechanical Ventilator 50 04/27/20 05:00 17 198/105 Mechanical Ventilator 50 04/27/20 05:00 20 198/105 Mechanical Ventilator 50 04/27/20 05:00 89 20 198/105 (136) 94 04/27/20 04:50 80 19 50 04/27/20 04:30 91 19 186/97 (126) 93 04/27/20 04:05 17 175/89 Mechanical Ventilator 55 04/27/20 04:05 18 175/89 Mechanical Ventilator 50 04/27/20 04:00 Mechanical Ventilator 04/27/20 04:00 76 17 175/89 (117) 97 04/27/20 04:00 50 04/27/20 03:35 83 17 163/84 (110) 90 04/27/20 03:30 87 17 04/27/20 03:03 53 18 50 04/27/20 03:00 18 105/62 Mechanical Ventilator 55 04/27/20 03:00 18 102/62 Mechanical Ventilator 55 04/27/20 03:00 54 18 105/62 (76) 99 04/27/20 02:30 59 18 106/59 (75) 99 04/27/20 02:00 60 18 113/62 (79) 98 04/27/20 02:00 18 113/62 Mechanical Ventilator 55 04/27/20 02:00 18 113/62 04/27/20 01:08 63 18 50 04/27/20 01:00 18 128/68 Mechanical Ventilator 55 04/27/20 01:00 18 128/68 Mechanical Ventilator 55 04/27/20 01:00 63 18 128/68 (88) 98 04/27/20 00:57 99.0 04/27/20 00:30 71 18 153/89 (110) 98 04/27/20 00:00 77 18 174/92 (119) 98 04/27/20 00:00 55 04/27/20 00:00 18 174/92 Mechanical Ventilator 55 04/27/20 00:00 18 174/92 Mechanical Ventilator 55 04/27/20 00:00 77 18 174/92 (119) 98 04/27/20 00:00 Mechanical Ventilator 04/26/20 23:03 78 18 55 04/26/20 23:00 77 18 154/90 (111) 97 04/26/20 23:00 18 154/90 Mechanical Ventilator 55 04/26/20 23:00 18 154/90 Mechanical Ventilator 55 04/26/20 22:30 90 21 186/100 (128) 95 04/26/20 22:19 22 188/92 Mechanical Ventilator 55 04/26/20 22:00 19 186/100 Mechanical Ventilator 55 04/26/20 22:00 19 186/100 Mechanical Ventilator 55 04/26/20 22:00 84 20 188/92 (124) 97 04/26/20 21:30 69 18 154/79 (104) 99 04/26/20 21:16 71 18 55 04/26/20 21:02 21 154/75 Mechanical Ventilator 55 04/26/20 21:00 70 18 154/75 (101) 99 04/26/20 21:00 18 154/75 Mechanical Ventilator 55 04/26/20 21:00 18 154/75 Mechanical Ventilator 55 04/26/20 20:30 68 18 155/83 (107) 98 04/26/20 20:00 55 04/26/20 20:00 18 166/82 Mechanical Ventilator 55 04/26/20 20:00 18 166/82 Mechanical Ventilator 55 04/26/20 20:00 Mechanical Ventilator 04/26/20 20:00 72 18 166/82 (110) 98 04/26/20 19:30 68 18 160/93 (115) 98 04/26/20 19:09 79 24 55 04/26/20 19:00 80 18 187/93 (124) 97 04/26/20 19:00 18 156/77 Mechanical Ventilator 55 04/26/20 19:00 18 182/88 Mechanical Ventilator 55 04/26/20 18:30 67 18 133/87 (102) 99 04/26/20 18:00 74 18 143/87 (105) 98 04/26/20 18:00 19 180/92 Mechanical Ventilator 55 04/26/20 18:00 18 143/87 Mechanical Ventilator 55 04/26/20 17:30 75 18 148/87 (107) 98 04/26/20 17:00 74 18 156/77 (103) 98 04/26/20 17:00 19 180/92 Mechanical Ventilator 55 04/26/20 17:00 18 156/77 Mechanical Ventilator 55 04/26/20 16:30 82 18 163/81 (108) 96 04/26/20 16:06 22 180/92 Mechanical Ventilator 55 04/26/20 16:00 86 04/26/20 16:00 55 04/26/20 16:00 19 180/92 Mechanical Ventilator 55 04/26/20 16:00 19 180/92 Mechanical Ventilator 55 04/26/20 16:00 99.5 92 20 180/92 (121) 95 04/26/20 16:00 Mechanical Ventilator 04/26/20 15:30 83 21 146/85 (105) 96 04/26/20 15:21 87 19 55 04/26/20 15:00 89 20 166/91 (116) 95 04/26/20 15:00 18 151/89 Mechanical Ventilator 55 04/26/20 15:00 18 151/89 Mechanical Ventilator 55 04/26/20 15:00 18 151/89 Mechanical Ventilator 55 04/26/20 15:00 87 17 166/91 (116) 96 04/26/20 14:30 91 23 183/94 (123) 96 04/26/20 14:00 55 04/26/20 14:00 83 18 179/90 (119) 95 04/26/20 14:00 19 160/82 Mechanical Ventilator 55 04/26/20 14:00 19 165/96 Mechanical Ventilator 55 04/26/20 14:00 18 165/96 Mechanical Ventilator 55 04/26/20 13:53 86 21 55 04/26/20 13:30 90 19 174/79 (110) 90 04/26/20 13:00 18 124/77 Mechanical Ventilator 50 04/26/20 13:00 18 124/77 Mechanical Ventilator 50 04/26/20 13:00 19 172/85 Mechanical Ventilator 55 04/26/20 13:00 96 19 177/90 (119) 89 04/26/20 12:30 66 18 121/64 (83) 93 04/26/20 12:00 98 04/26/20 12:00 50 04/26/20 12:00 18 107/61 Mechanical Ventilator 50 04/26/20 12:00 18 107/61 Mechanical Ventilator 50 04/26/20 12:00 18 106/57 Mechanical Ventilator 50 04/26/20 12:00 97.9 65 18 108/59 (75) 92 04/26/20 12:00 Mechanical Ventilator 04/26/20 11:49 18 106/71 Mechanical Ventilator 60 04/26/20 11:30 68 18 107/58 (74) 96 I&O Intake and Output 04/26/20 04/27/20 19:00 07:00 Intake Total 931.902 ml 692.6 ml Output Total 750 ml 900 ml Balance 181.902 ml -207.4 ml Free Water 80 ml 10 ml IV Total 821.902 ml 662.6 ml Tube Feeding 0 ml 0 ml Other 30 ml 20 ml Output Urine Total 750 ml 900 ml Dressing: dry Wound: clean Cardiovascular: RSR Respiratory: decreased breath sounds Abdomen: soft, non-tender, present bowel sounds, non-distended Extremities: no edema, no tenderness, no cyanosis Laboratory Tests Test 04/27/20 05:08 White Blood Count 8.1 K/UL (4.8-10.8) Red Blood Count 3.61 M/UL (4.70-6.10) L Hemoglobin 10.3 G/DL (14.2-18.0) L Hematocrit 33.0 % (42.0-52.0) L Mean Corpuscular Volume 91 FL (80-99) Mean Corpuscular Hemoglobin 28.4 PG (27.0-31.0) Mean Corpuscular Hemoglobin Concent 31.1 G/DL (32.0-36.0) L Red Cell Distribution Width 17.6 % (11.6-14.8) H Platelet Count 312 K/UL (150-450) Mean Platelet Volume 6.4 FL (6.5-10.1) L Neutrophils (%) (Auto) 83.6 % (45.0-75.0) H Lymphocytes (%) (Auto) 11.3 % (20.0-45.0) L Monocytes (%) (Auto) 4.3 % (1.0-10.0) Eosinophils (%) (Auto) 0.0 % (0.0-3.0) Basophils (%) (Auto) 0.7 % (0.0-2.0) Prothrombin Time 12.0 SEC (9.30-11.50) H Prothromb Time International Ratio 1.1 (0.9-1.1) Activated Partial Thromboplast Time 26 SEC (23-33) Sodium Level 141 MMOL/L (136-145) Potassium Level 4.4 MMOL/L (3.5-5.1) Chloride Level 103 MMOL/L (98-107) Carbon Dioxide Level 30 MMOL/L (21-32) Anion Gap 8 mmol/L (5-15) Blood Urea Nitrogen 13 mg/dL (7-18) Creatinine 0.3 MG/DL (0.55-1.30) L Estimat Glomerular Filtration Rate > 60 mL/min (>60) Glucose Level 99 MG/DL (74-106) Calcium Level 8.9 MG/DL (8.5-10.1) Plan Problems: (1) Pneumonia (2) Staphylococcus aureus bacteremia (3) COVID-19 virus infection (4) Chest pain (5) Hypertension (6) Dehydration (7) Electrolyte imbalance (8) DMII (diabetes mellitus, type 2) (9) Protein malnutrition (10) Respiratory insufficiency Assessment & Plan: 64-year-old male with respiratory insufficiency intubated in an intensive care unit. Patient has been unable to safely wean off ventilatory support. Surgery called to evaluate for tracheostomy. After careful evaluation patient is a candidate for tracheostomy. In the meantime will obtain consent. If consent obtained will proceed with scheduling. Thank you for your participation's care will follow recommendations Booker Rausch Apr 27, 2020 11:21
--- NOTE | 2020-04-27 11:25 | NUR ---
NURSE NOTES: no orders to change ventilator setting at this time. assessed at the bedside and ordered to continue weaning the sedation as patient tolerates
--- NOTE | 2020-04-27 11:29 | Operative Note - Dictated ---
DATE OF OPERATION: 04/26/2020 PREOPERATIVE DIAGNOSES: 1. Respiratory insufficiency requiring prolonged ventilatory support. 2. COVID positive. POSTOPERATIVE DIAGNOSES: 1. Respiratory insufficiency requiring prolonged ventilatory support. 2. COVID positive. OPERATION PERFORMED: Tracheostomy. ATTENDING SURGEON: Booker Rausch MD. EARLY CHILDHOOD LEAD TEACHER: None. ANESTHESIOLOGIST: Tony Rai MD. ANESTHESIA: General GETA plus local. ESTIMATED BLOOD LOSS: Minimal. IV FLUIDS: Please see anesthesia records. COMPLICATIONS: None. DRAINS: None. COUNTS: Sponge and needles count correct x2 WOUND CLASSIFICATION: Class III. ANTIBIOTICS: The patient on scheduled IV antibiotics. IMPLANTS: An 8-Kiswahili Shiley tracheostomy. INDICATIONS FOR PROCEDURE: The patient is a 64-year-old male COVID positive, respiratory insufficiency on ventilatory support for prolonged period time weaning but unable to extubate, requiring prolonged ventilatory support, indicated and recommended for tracheostomy, multidisciplinary medical team including Pulmonology, Critical Care, medical teams have evaluated the patient as well as myself, the surgery and deemed the procedure indicated, recommended, and medically necessary at this point. Consent was obtained from the patient's brother after explaining risks, benefits, and alternatives. The patient is unable to currently consent. OPERATIVE NOTE: The patient was taken to the operating room and placed on the operating table in supine position with bilateral arms down. All bony prominences were well padded. SCDs were placed. Preoperative time-out was taken identifying the patient, procedure, operative site, and surgical staff. The patient already . Shoulder roll was placed. The neck was hyperextended. Neck was prepped and draped in standard surgical fashion. The patient already had ET tube in place. Local anesthetic was infiltrated. Skin incision made two fingerbreadths above the sternal notch, carried down through subcutaneous tissue to the platysma and down to the median raphae. Median raphae identified and divided and the strap muscles mobilized laterally. The tracheal hook was placed and first, second, and third tracheal rings were clearly identified and dissected out. A window was made between the first and second tracheal rings without complication. ET-tube identified. The ET tube was slowly withdrawn by the anesthesiologist until above level of the cords and an 8-Kisw[place]ili Shiley tracheostomy inserted under direct visualization without complication. Balloon insufflated and the patient ventilated through the tracheostomy with good end-tidal CO2 and volumes. The lateral edges were reapproximated using Monocryl suture followed by trach tie dressings. The patient had deep suctioning performed. The patient tolerated the procedure well without complication. The patient was taken directly to the intensive care unit. Booker Rausch M.D. DR: Sudha JOB#: [id number] CC:
--- NOTE | 2020-04-27 11:30 | NUR ---
NURSE NOTES: Dr. Quintero is unable to proceed with placement of peg today, but has rescheduled for 04/28/20 around 1130. orders placed by dr. quintero for am labs. no further orders given
--- NOTE | 2020-04-27 12:00 | NUR ---
NURSE NOTES: Dr. Rausch informed the patient trach remains with no oozing or bleeding at the trach site, gauze is clean and dry and secured, no orders given at this time.
--- NOTE | 2020-04-27 13:30 | General Progress Note ---
Subjective ROS Limited/Unobtainable: No Allergies: Coded Allergies: No Known Allergies (Unverified , 02/05/20) Objective Last 24 Hour Vital Signs Date Time Temp Pulse Resp B/P (MAP) Pulse Ox O2 Delivery O2 Flow Rate FiO2 04/27/20 13:00 67 18 118/61 (80) 98 04/27/20 12:48 Mechanical Ventilator 04/27/20 12:30 71 18 116/67 (83) 98 04/27/20 12:00 77 04/27/20 12:00 98.0 73 18 119/63 (81) 98 04/27/20 12:00 55 04/27/20 11:30 76 19 123/63 (83) 98 04/27/20 11:00 78 18 124/65 (84) 100 04/27/20 10:30 83 18 123/64 (83) 97 04/27/20 10:00 96 12 151/68 (95) 92 04/27/20 09:31 107 170/100 04/27/20 09:30 111 21 184/87 (119) 93 04/27/20 09:30 21 170/100 Mechanical Ventilator 50 04/27/20 09:00 109 17 170/100 (123) 94 04/27/20 08:49 86 20 96 04/27/20 08:30 112 19 161/85 (110) 93 04/27/20 08:00 Mechanical Ventilator 04/27/20 08:00 97.6 115 29 181/89 (119) 94 04/27/20 08:00 122 04/27/20 07:30 114 17 188/103 (131) 93 04/27/20 07:22 50 04/27/20 07:00 78 18 133/69 (90) 97 04/27/20 06:52 73 04/27/20 06:36 185/113 04/27/20 06:13 98.5 04/27/20 06:00 79 9 158/109 (125) 97 04/27/20 06:00 9 158/109 Mechanical Ventilator 50 04/27/20 06:00 9 158/109 Mechanical Ventilator 50 04/27/20 05:46 19 189/96 Mechanical Ventilator 50 04/27/20 05:00 17 198/105 Mechanical Ventilator 50 04/27/20 05:00 20 198/105 Mechanical Ventilator 50 04/27/20 05:00 89 20 198/105 (136) 94 04/27/20 04:50 80 19 50 04/27/20 04:30 91 19 186/97 (126) 93 04/27/20 04:05 17 175/89 Mechanical Ventilator 55 04/27/20 04:05 18 175/89 Mechanical Ventilator 50 04/27/20 04:00 Mechanical Ventilator 04/27/20 04:00 76 17 175/89 (117) 97 04/27/20 04:00 50 04/27/20 03:35 83 17 163/84 (110) 90 04/27/20 03:30 87 17 04/27/20 03:03 53 18 50 04/27/20 03:00 18 105/62 Mechanical Ventilator 55 04/27/20 03:00 18 102/62 Mechanical Ventilator 55 04/27/20 03:00 54 18 105/62 (76) 99 04/27/20 02:30 59 18 106/59 (75) 99 04/27/20 02:00 60 18 113/62 (79) 98 04/27/20 02:00 18 113/62 Mechanical Ventilator 55 04/27/20 02:00 18 113/62 04/27/20 01:08 63 18 50 04/27/20 01:00 18 128/68 Mechanical Ventilator 55 04/27/20 01:00 18 128/68 Mechanical Ventilator 55 04/27/20 01:00 63 18 128/68 (88) 98 04/27/20 00:57 99.0 04/27/20 00:30 71 18 153/89 (110) 98 04/27/20 00:00 77 18 174/92 (119) 98 04/27/20 00:00 55 04/27/20 00:00 18 174/92 Mechanical Ventilator 55 04/27/20 00:00 18 174/92 Mechanical Ventilator 55 04/27/20 00:00 77 18 174/92 (119) 98 04/27/20 00:00 Mechanical Ventilator 04/26/20 23:03 78 18 55 04/26/20 23:00 77 18 154/90 (111) 97 04/26/20 23:00 18 154/90 Mechanical Ventilator 55 04/26/20 23:00 18 154/90 Mechanical Ventilator 55 04/26/20 22:30 90 21 186/100 (128) 95 04/26/20 22:19 22 188/92 Mechanical Ventilator 55 04/26/20 22:00 19 186/100 Mechanical Ventilator 55 04/26/20 22:00 19 186/100 Mechanical Ventilator 55 04/26/20 22:00 84 20 188/92 (124) 97 04/26/20 21:30 69 18 154/79 (104) 99 04/26/20 21:16 71 18 55 04/26/20 21:02 21 154/75 Mechanical Ventilator 55 04/26/20 21:00 70 18 154/75 (101) 99 04/26/20 21:00 18 154/75 Mechanical Ventilator 55 04/26/20 21:00 18 154/75 Mechanical Ventilator 55 04/26/20 20:30 68 18 155/83 (107) 98 04/26/20 20:00 55 04/26/20 20:00 18 166/82 Mechanical Ventilator 55 04/26/20 20:00 18 166/82 Mechanical Ventilator 55 04/26/20 20:00 Mechanical Ventilator 04/26/20 20:00 72 18 166/82 (110) 98 04/26/20 19:30 68 18 160/93 (115) 98 04/26/20 19:09 79 24 55 04/26/20 19:00 80 18 187/93 (124) 97 04/26/20 19:00 18 156/77 Mechanical Ventilator 55 04/26/20 19:00 18 182/88 Mechanical Ventilator 55 04/26/20 18:30 67 18 133/87 (102) 99 04/26/20 18:00 74 18 143/87 (105) 98 04/26/20 18:00 19 180/92 Mechanical Ventilator 55 04/26/20 18:00 18 143/87 Mechanical Ventilator 55 04/26/20 17:30 75 18 148/87 (107) 98 04/26/20 17:00 74 18 156/77 (103) 98 04/26/20 17:00 19 180/92 Mechanical Ventilator 55 04/26/20 17:00 18 156/77 Mechanical Ventilator 55 04/26/20 16:30 82 18 163/81 (108) 96 04/26/20 16:06 22 180/92 Mechanical Ventilator 55 04/26/20 16:00 86 04/26/20 16:00 55 04/26/20 16:00 19 180/92 Mechanical Ventilator 55 04/26/20 16:00 19 180/92 Mechanical Ventilator 55 04/26/20 16:00 99.5 92 20 180/92 (121) 95 04/26/20 16:00 Mechanical Ventilator 04/26/20 15:30 83 21 146/85 (105) 96 04/26/20 15:21 87 19 55 04/26/20 15:00 89 20 166/91 (116) 95 04/26/20 15:00 18 151/89 Mechanical Ventilator 55 04/26/20 15:00 18 151/89 Mechanical Ventilator 55 04/26/20 15:00 18 151/89 Mechanical Ventilator 55 04/26/20 15:00 87 17 166/91 (116) 96 04/26/20 14:30 91 23 183/94 (123) 96 04/26/20 14:00 55 04/26/20 14:00 83 18 179/90 (119) 95 04/26/20 14:00 19 160/82 Mechanical Ventilator 55 04/26/20 14:00 19 165/96 Mechanical Ventilator 55 04/26/20 14:00 18 165/96 Mechanical Ventilator 55 04/26/20 13:53 86 21 55 04/26/20 13:30 90 19 174/79 (110) 90 Intake and Output 04/26/20 04/27/20 19:00 07:00 Intake Total 931.902 ml 762.6 ml Output Total 750 ml 900 ml Balance 181.902 ml -137.4 ml Free Water 80 ml 10 ml IV Total 821.902 ml 732.6 ml Tube Feeding 0 ml 0 ml Other 30 ml 20 ml Output Urine Total 750 ml 900 ml Laboratory Tests 04/27/20 05:08: White Blood Count 8.1, Red Blood Count 3.61L, Hemoglobin 10.3L, Hematocrit 33.0L , Mean Corpuscular Volume 91, Mean Corpuscular Hemoglobin 28.4, Mean Corpuscular Hemoglobin Concent 31.1L, Red Cell Distribution Width 17.6H, Platelet Count 312, Mean Platelet Volume 6.4L, Neutrophils (%) (Auto) 83.6H, Lymphocytes (%) (Auto) 11.3L, Monocytes (%) (Auto) 4.3, Eosinophils (%) (Auto) 0.0, Basophils (%) (Auto) 0.7, Prothrombin Time 12.0H, Prothromb Time International Ratio 1.1, Activated Partial Thromboplast Time 26, Sodium Level 141, Potassium Level 4.4, Chloride Level 103, Carbon Dioxide Level 30, Anion Gap 8, Blood Urea Nitrogen 13, Creatinine 0.3L, Estimat Glomerular Filtration Rate > 60, Glucose Level 99, Calcium Level 8.9 Height (Feet): 5 Height (Inches): 10.00 Weight (Pounds): 243 General Appearance: no apparent distress EENT: normal ENT inspection Neck: supple Cardiovascular: normal rate Respiratory/Chest: decreased breath sounds Abdomen: normal bowel sounds, non tender, soft Extremities: non-tender Assessment/Plan Status: not improved, unchanged Assessment/Plan: hep c + but neg RNA OGTF reglan 10 mg tolerating TF repeat labs fu LFTS>>>improving will Da Wilson MD Apr 27, 2020 13:30
--- NOTE | 2020-04-27 14:30 | NUR ---
NURSE NOTES: new bag of fentanyl bag hung and continued rate of 300mcg/hr at rate of 30ml/hrs.
--- NOTE | 2020-04-27 15:02 | NUR ---
RESPIRATORY NOTE: FiO2 decreased to 50%. PT tolerating well. Kevin MATHEW aware. Will continue to closely monitor.
--- NOTE | 2020-04-27 15:25 | NUR ---
NURSE NOTES: Dr. Weinberg updated on the patient progress and WBC count at 8.1. no verbal orders given at this time.
--- NOTE | 2020-04-27 15:34 | Infectious Diseases Prog Note ---
Assessment/Plan Assessment/Plan ASSESSMENT AND PLAN: 1. staph aureus bacteremia/mssa, ? source, ? endocarditis, sepsis, leukocytosis, ? CAP, PJP less likely with HIV negative and steroids < 1 month covid-19 +, hypoxia, sob, chest x-ray worse, ? PE, ? HCAP/aspiration pna recurrent fevers - ? fungal, ? OI leukocytosis noted - ? new infection, ? steroids cocci serology negative, legionella negative, beta 1,3 D-glucan wnl, Il-16 - 13.7 elevated LFT's - ? TPN, ? Bactrim - US without gallbladder disease, + steatosis - d/w GI - TPN more likely than bactrim as etiology e.coli uti - s/p treatment with rocephin, s/p treatment for presumptive pneumocystis pna + yeast in blood, fungemia, ? line infection, line changed worsening respiratory status, ? new aspiration pna/hcap, ? sepsis ? fungal/cynthia uti vs colonization - s/p zosyn, surveillance cultures negative to date, discontinue vancomycin - s/p micafungin -(post negative blood cultures - 04/02/20) - on solumedrol - picc line changed - bactrim for pneumocystis prophylaxis, s/p pneumocystis treatment - s/p tx for mssa bacteremia and ? endocarditis - monitor hypoxia, labs and chest x-ray - guarded condition - s/p trach - c.diff. negative 2. covid-19 isolation 3. Hypertension history. Blood pressure treatment primary care team. 4. Elevated blood sugars. Blood sugar treatment per primary care team. 5. No known drug allergies. 6. Social history is positive for smoking. 7. Family history is noncontributory. 8. MAR was noted. 9. Case was discussed with RN. 10. Continue treatment per primary consultants. Subjective Constitutional: Reports: other - sedated, + vent, no pressors, s/p trach ; Denies: fever HEENT: Reports: congestion Respiratory: Reports: shortness of breath Cardiovascular: Reports: other - no pressors Gastrointestinal/Abdominal: Denies: nausea, vomiting, diarrhea Genitourinary: Reports: other - + joseph Neurologic: Reports: other - weak, sedatded, no vent Psychiatric: Reports: other - NA Skin: Denies: rash Hematologic: Denies: bleeding Musculoskeletal: Reports: other - NA Allergies: Coded Allergies: No Known Allergies (Unverified , 02/05/20) Objective Last 24 Hour Vital Signs Date Time Temp Pulse Resp B/P (MAP) Pulse Ox O2 Delivery O2 Flow Rate FiO2 04/27/20 14:29 18 159/59 Mechanical Ventilator 55 04/27/20 14:14 18 159/81 Mechanical Ventilator 55 04/27/20 14:00 82 14 159/81 (107) 97 04/27/20 13:30 71 18 116/74 (88) 98 04/27/20 13:00 18 118/61 Mechanical Ventilator 55 04/27/20 13:00 18 118/61 Mechanical Ventilator 55 04/27/20 13:00 67 18 118/61 (80) 98 04/27/20 12:48 Mechanical Ventilator 04/27/20 12:30 71 18 116/67 (83) 98 04/27/20 12:00 77 04/27/20 12:00 98.0 73 18 119/63 (81) 98 04/27/20 12:00 18 119/63 Mechanical Ventilator 55 04/27/20 12:00 18 119/63 Mechanical Ventilator 55 04/27/20 12:00 55 04/27/20 11:30 76 19 123/63 (83) 98 04/27/20 11:00 78 18 124/65 (84) 100 04/27/20 11:00 18 124/65 Mechanical Ventilator 55 04/27/20 11:00 18 124/65 Mechanical Ventilator 55 04/27/20 10:30 83 18 123/64 (83) 97 04/27/20 10:00 19 151/68 Mechanical Ventilator 55 04/27/20 10:00 19 151/68 Mechanical Ventilator 55 04/27/20 10:00 96 12 151/68 (95) 92 04/27/20 09:31 107 170/100 04/27/20 09:30 111 21 184/87 (119) 93 04/27/20 09:30 21 170/100 Mechanical Ventilator 50 04/27/20 09:00 109 17 170/100 (123) 94 04/27/20 09:00 22 170/100 Mechanical Ventilator 55 04/27/20 09:00 20 170/100 Mechanical Ventilator 55 04/27/20 08:49 86 20 96 04/27/20 08:30 112 19 161/85 (110) 93 2/25/21 08:00 Mechanical Ventilator 04/27/20 08:00 97.6 115 29 181/89 (119) 94 04/27/20 08:00 28 181/89 Mechanical Ventilator 55 04/27/20 08:00 28 181/89 Mechanical Ventilator 55 04/27/20 08:00 122 04/27/20 07:30 114 17 188/103 (131) 93 04/27/20 07:22 50 04/27/20 07:00 19 133/69 Mechanical Ventilator 55 04/27/20 07:00 19 133/69 Mechanical Ventilator 55 04/27/20 07:00 78 18 133/69 (90) 97 04/27/20 06:52 73 04/27/20 06:36 185/113 04/27/20 06:13 98.5 04/27/20 06:00 79 9 158/109 (125) 97 04/27/20 06:00 9 158/109 Mechanical Ventilator 50 04/27/20 06:00 9 158/109 Mechanical Ventilator 50 04/27/20 05:46 19 189/96 Mechanical Ventilator 50 04/27/20 05:00 17 198/105 Mechanical Ventilator 50 04/27/20 05:00 20 198/105 Mechanical Ventilator 50 04/27/20 05:00 89 20 198/105 (136) 94 04/27/20 04:50 80 19 50 04/27/20 04:30 91 19 186/97 (126) 93 04/27/20 04:05 17 175/89 Mechanical Ventilator 55 04/27/20 04:05 18 175/89 Mechanical Ventilator 50 04/27/20 04:00 Mechanical Ventilator 04/27/20 04:00 76 17 175/89 (117) 97 04/27/20 04:00 50 04/27/20 03:35 83 17 163/84 (110) 90 04/27/20 03:30 87 17 04/27/20 03:03 53 18 50 04/27/20 03:00 18 105/62 Mechanical Ventilator 55 04/27/20 03:00 18 102/62 Mechanical Ventilator 55 04/27/20 03:00 54 18 105/62 (76) 99 04/27/20 02:30 59 18 106/59 (75) 99 04/27/20 02:00 60 18 113/62 (79) 98 04/27/20 02:00 18 113/62 Mechanical Ventilator 55 04/27/20 02:00 18 113/62 04/27/20 01:08 63 18 50 04/27/20 01:00 18 128/68 Mechanical Ventilator 55 04/27/20 01:00 18 128/68 Mechanical Ventilator 55 04/27/20 01:00 63 18 128/68 (88) 98 04/27/20 00:57 99.0 04/27/20 00:30 71 18 153/89 (110) 98 04/27/20 00:00 77 18 174/92 (119) 98 04/27/20 00:00 55 04/27/20 00:00 18 174/92 Mechanical Ventilator 55 04/27/20 00:00 18 174/92 Mechanical Ventilator 55 04/27/20 00:00 77 18 174/92 (119) 98 04/27/20 00:00 Mechanical Ventilator 04/26/20 23:03 78 18 55 04/26/20 23:00 77 18 154/90 (111) 97 04/26/20 23:00 18 154/90 Mechanical Ventilator 55 04/26/20 23:00 18 154/90 Mechanical Ventilator 55 04/26/20 22:30 90 21 186/100 (128) 95 04/26/20 22:19 22 188/92 Mechanical Ventilator 55 04/26/20 22:00 19 186/100 Mechanical Ventilator 55 04/26/20 22:00 19 186/100 Mechanical Ventilator 55 04/26/20 22:00 84 20 188/92 (124) 97 04/26/20 21:30 69 18 154/79 (104) 99 04/26/20 21:16 71 18 55 04/26/20 21:02 21 154/75 Mechanical Ventilator 55 04/26/20 21:00 70 18 154/75 (101) 99 04/26/20 21:00 18 154/75 Mechanical Ventilator 55 04/26/20 21:00 18 154/75 Mechanical Ventilator 55 04/26/20 20:30 68 18 155/83 (107) 98 04/26/20 20:00 55 04/26/20 20:00 18 166/82 Mechanical Ventilator 55 04/26/20 20:00 18 166/82 Mechanical Ventilator 55 04/26/20 20:00 Mechanical Ventilator 04/26/20 20:00 72 18 166/82 (110) 98 04/26/20 19:30 68 18 160/93 (115) 98 04/26/20 19:09 79 24 55 04/26/20 19:00 80 18 187/93 (124) 97 04/26/20 19:00 18 156/77 Mechanical Ventilator 55 04/26/20 19:00 18 182/88 Mechanical Ventilator 55 04/26/20 18:30 67 18 133/87 (102) 99 04/26/20 18:00 74 18 143/87 (105) 98 04/26/20 18:00 19 180/92 Mechanical Ventilator 55 04/26/20 18:00 18 143/87 Mechanical Ventilator 55 04/26/20 17:30 75 18 148/87 (107) 98 04/26/20 17:00 74 18 156/77 (103) 98 04/26/20 17:00 19 180/92 Mechanical Ventilator 55 04/26/20 17:00 18 156/77 Mechanical Ventilator 55 04/26/20 16:30 82 18 163/81 (108) 96 04/26/20 16:06 22 180/92 Mechanical Ventilator 55 04/26/20 16:00 86 04/26/20 16:00 55 04/26/20 16:00 19 180/92 Mechanical Ventilator 55 04/26/20 16:00 19 180/92 Mechanical Ventilator 55 04/26/20 16:00 99.5 92 20 180/92 (121) 95 04/26/20 16:00 Mechanical Ventilator 04/26/20 15:30 83 21 146/85 (105) 96 Height (Feet): 5 Height (Inches): 10.00 Weight (Pounds): 243 General Appearance: no acute distress, other - sedated, on vent HEENT: normocephalic, atraumatic, anicteric, supple, no JVD, status post trach Respiratory/Chest: crackles/rales, rhonchi - bilaterally Cardiovascular: normal rate, regular rhythm Abdomen: soft, non tender, non distended Genitourinary: other - + joseph Extremities: no cyanosis Skin: no rash Neurologic/Psychiatric: other - weak, sedated Lymphatic: no neck adenopathy Musculoskeletal: no effusion CT chest: IMPRESSION: There are mild subpleural ground-glass and consolidating infiltrates in the dependent portions of both lower lobes and to lesser degree the upper lobes consistent with bilateral pneumonia. The infiltrates are typical for Covid 19. No evidence of pulmonary embolus. CT abdomen and pelvis: IMPRESSION: 1. Scattered hepatic hypodense lesions, too small to characterize on this examination without intravenous contrast. 2. Colonic diverticulosis without evidence of acute diverticulitis. 3. Scattered enlarged mesenteric lymph nodes, presumably reactive. teral pneumonia. The infiltrates are typical for Covid 19. No evidence of pulmonary embolus. Chest x-ray - 12/19/19 - Indication: Shortness of breath Technique: One view of the chest Comparison: 02/17/2020 Findings: Interim worsening of bilateral infiltrates, particularly on the right. The heart is borderline enlarged. The pleural spaces are clear. Left arm PICC is again demonstrated Impression: Worsening bilateral infiltrates over one day, likely pneumonia CT chest - 02/19/20 - IMPRESSION: Increased extensive patchy ground-glass opacities and densities throughout the lungs, suggestive of Covid 19 infection. Chest x-ray 02/23/20 - Procedure: XRAY Chest 1v As Indication: Reason For Exam: INFECT Technique: One view of the chest Comparison: 02/20/2020 Findings: Allowing for differences in exposure technique, bilateral mid and lower lung infiltrates are probably unchanged. The heart size is normal. The pleural spaces are clear. Impression: Unchanged, over 4 days, findings as above. Chest x-ray - 02/25/20 - FINDINGS: Lungs: Interval slightly worsening bilateral airspace disease. Pleural space: Unremarkable. No pneumothorax. Heart: Unremarkable. No cardiomegaly. Mediastinum: Unremarkable. Bones/joints: Unremarkable. IMPRESSION: Interval slightly worsening bilateral airspace disease. Chest x-ray - 03/02/20 - Procedure: XRAY Chest 1v Indication: Shortness of breath Technique: One view of the chest Comparison: 02/25/2020 Findings: Bilateral interstitial and airspace infiltrates are unchanged. The heart size is normal. Left arm PICC is again demonstrated Impression: Unchanged, over one day, findings as above. Chest x-ray - 03/06/20 - Procedure: XRAY Chest 1v Indication: Shortness of breath Technique: One view of the chest Comparison: 03/02/2020 Findings: Bilateral infiltrates are unchanged. Normal heart size. Pleural spaces are clear Chest x-ray - 03/12/10 - Impression: COMPARISON: Chest radiograph March 06, 2020. FINDINGS/IMPRESSION: Improving basilar infiltrates. Follow chest radiograph recommended. The upper lung finley are clear. No pneumothorax. Stable cardiomegaly. Stable left upper extremity PICC line. anged, over 4 days, findings as above. Chest x-ray - 03/17/20 - Procedure: XRAY Chest 1v Indication: Shortness of breath Technique: One view of the chest Comparison: 03/12/2020 Findings: Left arm PICC is again demonstrated. Infiltrates are unchanged. The heart size is upper limits of normal. Impression: Unchanged, over 5 days, findings as above. Abdominal US - IMPRESSION: 1. Gallbladder is normal. 2. Hepatic steatosis. 3. 1.7 cm cyst right kidney. Impression. Chest x-ray - Procedure: XRAY Chest 1v Indication: Shortness of breath Technique: One view of the chest Comparison: 03/17/2020 Findings: Bilateral right greater than left infiltrates again demonstrated. The heart size is normal. There is a left arm PICC in good position. Impression: Unchanged, over 5 days, findings as above. Chest x-ray - 03/29/20 - Procedure: XRAY Chest 1v Indication: Cough Technique: One view of the chest Comparison: 03/28/2020 Findings: Bilateral infiltrates are unchanged or slightly worse, allowing for differences in exposure technique. The pleural spaces are clear. The heart size is normal. Stable satisfactory position of endotracheal tube, left arm PICC. Orogastric tube has retracted somewhat the position remains satisfactory. Impression: Stable to slightly worse bilateral infiltrates. 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 Interim advancement of orogastric tube as well. Bilateral infiltrates are unchanged. Left arm PICC remains Impression: Improved and now satisfactory tube positions as described. ICU nurse Maeve notified at the time of interpretation Chest x-ray - 04/02/20 - COMPARISON: Chest x-rays dated 03/31/20 and 03/12/20. FINDINGS: Lungs: No significant change in bilateral prominent interstitial markings. The lungs are otherwise clear without focal consolidation. Pleural space: Unremarkable. The costophrenic angles are sharp. No visible pneumothorax. Heart: Unremarkable. No cardiomegaly. Mediastinum: Unremarkable. Bones/joints: Unremarkable. Tubes, lines and devices: Endotracheal tube tip 6.5 cm above the sunny. NG tube tip in the distal stomach. Telemetry leads overlie the thorax. IMPRESSION: No significant change in bilateral prominent interstitial markings. Procedure: XRAY Chest 1v Procedure: XRAY Chest 1v Reason for study: Shortness of breath 04/06/20 - Comparison films: 04/02/2020. FINDINGS: Endotracheal tube and NG tube remain in place. There is worsening of right basilar infiltrates. Some haziness in left lung base unchanged. Cardiac and mediastinal silhouette are within normal limits. CP angles are sharp. The bony thorax appear unremarkable. IMPRESSION: Worsening of right basilar infiltrate. Chest x-ray - 04/09/20 - Procedure: XRAY Chest 1v FILM CXR 1 VIEW INDICATION: Infection COMPARISON: April 05, 2020 FINDINGS: Single frontal view demonstrates a normal cardiomediastinal silhouette. Endotracheal tube in place with tip above the sunny. Elevation of the right hemidiaphragm. Interstitial prominence with bilateral lower lobe infiltrates. Lung bases appear worse from the prior exam. Small right effusion. Right-sided PICC line with tip in the superior vena cava. Enteric tube in place. IMPRESSION: Interstitial prominence and bilateral lower lobe pneumonia with worsening appearance from the prior study. Chest x-ray - 04/12/20 - Procedure: XRAY Chest 1v Indication: Shortness of breath Technique: One view of the chest Comparison: 04/09/2020 Findings: Stable satisfactory tube and line positions. Bilateral infiltrates have worsened slightly since prior study. The heart size is normal. Impression: Worsening bilateral infiltrates, over 3 days Chest x-ray - 04/15/20 - COMPARISON: 02/11/21. FINDINGS: Lungs: There is been no significant change in mild to moderate patchy diffuse bilateral alveolar infiltrates which are most prominent in the lung bases. Pleural space: Unremarkable. No pneumothorax. Heart: Unremarkable. No cardiomegaly. Mediastinum: Unremarkable. Bones/joints: Unremarkable. Tubes, lines and devices: There is an endotracheal tube, right-sided PICC line and NG tube in good position. IMPRESSION: There is been no significant change in mild to moderate patchy diffuse bilateral alveolar infiltrates which are most prominent in the lung bases. Chest x-ray - 04/18/20 - Procedure: XRAY Chest 1v Indication: Cough Technique: One view of the chest Comparison: 04/15/2020 Findings: Less optimal inspiration currently than previously. Stable satisfactory positions of endotracheal and orogastric tubes and right arm PICC. Bilateral infiltrates are again demonstrated, unchanged. Impression: Unchanged, over 3 days, findings as above. Chest x-ray - 04/21/20 - Procedure: XRAY Chest 1v Indication: Dyspnea Technique: One view of the chest Comparison: 04/18/2020 Findings: Stable tube and line positions. Bilateral infiltrates are unchanged Impression: Unchanged, over one day, findings as above. Procedure: XRAY Chest 1v Procedure: XRAY Chest 1v Reason for study: Reason For Exam: SOB Chest x-ray - 04/25/20 - Comparison films: 04/21/2020. FINDINGS: Endotracheal tube, NG tube and right PICC line remain in place. Vascularity is normal. Bilateral infiltrates are unchanged. Cardiac and mediastinal silhouette are within normal limits. CP angles are sharp. The bony thorax appear unremarkable. IMPRESSION: NO SIGNIFICANT CHANGE COMPARED TO PREVIOUS EXAM. Microbiology Date/Time Source Procedure Growth Status 04/14/20 16:35 Stool Clostridium difficile Toxin Assay - Final Complete 04/12/20 08:40 Urine,Clean Catch Urine Culture - Final Cynthia Parapsilosis Complete 04/12/20 08:40 Sputum Gram Stain - Final Complete 04/12/20 08:40 Sputum Sputum Culture - Final NORMAL UPPER RESPIRATORY WILIAM AT 48 ... Complete 04/11/20 18:55 Blood Blood Culture - Final NO GROWTH AFTER 5 DAYS Complete Laboratory Tests Test 04/27/20 05:08 White Blood Count 8.1 K/UL (4.8-10.8) Red Blood Count 3.61 M/UL (4.70-6.10) L Hemoglobin 10.3 G/DL (14.2-18.0) L Hematocrit 33.0 % (42.0-52.0) L Mean Corpuscular Volume 91 FL (80-99) Mean Corpuscular Hemoglobin 28.4 PG (27.0-31.0) Mean Corpuscular Hemoglobin Concent 31.1 G/DL (32.0-36.0) L Red Cell Distribution Width 17.6 % (11.6-14.8) H Platelet Count 312 K/UL (150-450) Mean Platelet Volume 6.4 FL (6.5-10.1) L Neutrophils (%) (Auto) 83.6 % (45.0-75.0) H Lymphocytes (%) (Auto) 11.3 % (20.0-45.0) L Monocytes (%) (Auto) 4.3 % (1.0-10.0) Eosinophils (%) (Auto) 0.0 % (0.0-3.0) Basophils (%) (Auto) 0.7 % (0.0-2.0) Prothrombin Time 12.0 SEC (9.30-11.50) H Prothromb Time International Ratio 1.1 (0.9-1.1) Activated Partial Thromboplast Time 26 SEC (23-33) Sodium Level 141 MMOL/L (136-145) Potassium Level 4.4 MMOL/L (3.5-5.1) Chloride Level 103 MMOL/L (98-107) Carbon Dioxide Level 30 MMOL/L (21-32) Anion Gap 8 mmol/L (5-15) Blood Urea Nitrogen 13 mg/dL (7-18) Creatinine 0.3 MG/DL (0.55-1.30) L Estimat Glomerular Filtration Rate > 60 mL/min (>60) Glucose Level 99 MG/DL (74-106) Calcium Level 8.9 MG/DL (8.5-10.1) Current Medications Medications (Trade) Dose Ordered Sig/Dennis Route PRN Reason Start Time Stop Time Status Last Admin Dose Admin Acetaminophen (Tylenol) 650 mg Q4H PRN ORAL Temp >100.5 04/13/20 00:30 05/13/20 00:29 04/13/20 01:30 Bisacodyl (Dulcolax) 10 mg Q12H PRN RECTAL Constipation 03/18/20 16:45 06/16/20 16:44 Chlorhexidine Gluconate (Marlen-Hex 2%) 1 applic DAILY@1999 TOPIC 03/30/20 20:00 06/28/20 19:59 04/26/20 19:48 Dextrose (Dextrose 50%) 25 ml Q30M PRN IV Hypoglycemia 03/29/20 20:45 06/27/20 20:44 Dextrose (Dextrose 50%) 50 ml Q30M PRN IV Hypoglycemia 03/29/20 20:45 06/27/20 20:44 Enoxaparin Sodium (Lovenox) 80 mg EVERY 12 HOURS SUBQ 04/06/20 21:00 07/05/20 20:59 04/27/20 09:39 Fentanyl Citrate 250 ml @ 1 mls/hr Q24H IV 04/25/20 16:30 04/27/20 16:29 04/27/20 14:14 Hydralazine HCl (Apresoline) 10 mg Q4H PRN IV For High Blood Pressure 03/30/20 12:15 06/28/20 12:14 04/27/20 06:36 Insulin Aspart (NovoLOG) Q6HR SUBQ 03/30/20 00:00 06/28/20 00:00 04/25/20 18:03 Labetalol HCl (Normodyne) 10 mg Q4H PRN IV sbp greater tahtn 160 03/28/20 17:30 04/27/20 17:29 04/27/20 09:31 Lansoprazole (Prevacid) 15 mg Q12HR GT 04/20/20 21:00 05/20/20 20:59 04/27/20 09:29 Methylprednisolone Sodium Succinate (Solu-MEDROL) 20 mg Q12HR IVP 04/12/20 21:00 06/20/20 20:59 04/27/20 09:29 Metoclopramide HCl (Reglan) 10 mg Q6H IVP 03/30/20 15:00 04/29/20 14:59 04/27/20 14:20 Midazolam HCl 200 ml @ 0 mls/hr Q24H PRN IV SEDATION 04/25/20 01:00 05/02/20 00:29 04/27/20 14:29 Morphine Sulfate (Morphine Sulfate) 4 mg Q6H PRN IVP agitation despite sedating med 04/21/20 12:45 04/28/20 12:44 04/27/20 05:43 Quetiapine Fumarate (SEROqueL) 50 mg Q12HR ORAL 04/27/20 21:00 06/11/20 20:59 Trimethoprim/ Sulfamethoxazole (Bactrim-DS) 1 tab DAILY ORAL 04/23/20 20:00 05/23/20 19:59 04/27/20 09:28 Kisha Salazar MD Apr 27, 2020 15:34
--- NOTE | 2020-04-27 16:35 | NUR ---
NURSE NOTES: order obtained from Dr. Mata for fentanyl drip. patient remains on fentanyl at rate of 30ml/hr and dose of 300mcg/hr and versed of 20mg/hr to achieve rass scale of -2
--- NOTE | 2020-04-27 17:42 | NUR ---
INSURANCE CLINCALS/REVIEW FAXED TO [employer] T: [phone] #1 F: [phone] AND ALFRED CARRIER BLOWER:JACQUELINE JAMES T: [phone] F: [phone]
--- NOTE | 2020-04-27 19:35 | NUR ---
NURSE HAND-OFF REPORT: Latest Vital Signs: Temperature 98.6 , Pulse 66 , B/P 141 /68 , Respiratory Rate 18 , O2 SAT 99 , Mechanical Ventilator, O2 Flow Rate . Vital Sign Comment: EKG Rhythm: Sinus Rhythm Rhythm change?: N Notified?: N -Dr.Toluie INTERIANO Response: Message left await call Latest Hassan Fall Score: 50 Fall Risk: High Risk Safety Measures: Call light Within Reach, Bed Alarm Zone 3, Side Rails Side Rails x3, Bed position Low and Locked. Fall Precautions: Yellow Socks Yellow Gown Door Sign Patient Fall Education Report given to Jackelyn MATHEW.
--- NOTE | 2020-04-27 19:58 | Cardiology Progress Note ---
Assessment/Plan Assessment/Plan Acute covid 19 pneumonia hypoxemia infiltrate bilat bacteremia hypernatremia / hyponatremia mild abn lfts tachy post intubation fever fungemia dvt upper ext now on 60 % fio2 , have been successfully weaned form 100 % 2-3 weeks post intubation s/p trach weaning sedative now afebrile now hypoxemia unlikely cardiac related tube feeding being tolerated echo reviewed last on 04/06 still shows normal lv function no valve pathology cxr still showing bilateral lower lobe infiltrates as of tele reviewed sinus / sinus fahad now is on full dose anticoag due to dvt ue this needs james held before surgery cr is stable d/w rn maint ivf while npo for peg harvey bp lelvated got labaetolol Subjective ROS Limited/Unobtainable: Yes Subjective not communicative dionisio vent sedated Objective Last 24 Hour Vital Signs Date Time Temp Pulse Resp B/P (MAP) Pulse Ox O2 Delivery O2 Flow Rate FiO2 04/27/20 19:00 18 141/68 Mechanical Ventilator 50 04/27/20 19:00 18 141/68 Mechanical Ventilator 50 04/27/20 18:30 18 111/67 Mechanical Ventilator 50 04/27/20 18:00 18 106/62 Mechanical Ventilator 50 04/27/20 18:00 18 106/62 Mechanical Ventilator 50 04/27/20 18:00 66 18 106/62 (77) 99 04/27/20 17:30 60 18 105/62 (76) 99 04/27/20 17:00 59 18 107/62 (77) 98 04/27/20 17:00 18 107/62 Mechanical Ventilator 50 04/27/20 17:00 18 107/62 Mechanical Ventilator 50 04/27/20 16:30 61 18 110/61 (77) 98 04/27/20 16:00 Mechanical Ventilator 04/27/20 16:00 61 04/27/20 16:00 18 113/65 Mechanical Ventilator 50 04/27/20 16:00 18 113/65 Mechanical Ventilator 50 04/27/20 16:00 98.6 66 18 113/65 (81) 97 04/27/20 16:00 50 04/27/20 15:30 73 17 133/77 (95) 98 04/27/20 15:02 67 18 50 04/27/20 15:00 18 136/63 Mechanical Ventilator 55 04/27/20 15:00 18 136/63 Mechanical Ventilator 55 04/27/20 15:00 71 18 136/63 (87) 98 04/27/20 14:30 74 19 136/76 (96) 98 04/27/20 14:29 18 159/59 Mechanical Ventilator 55 04/27/20 14:14 18 159/81 Mechanical Ventilator 55 04/27/20 14:00 82 14 159/81 (107) 97 04/27/20 14:00 18 159/81 Mechanical Ventilator 55 04/27/20 14:00 18 159/81 Mechanical Ventilator 55 04/27/20 13:30 71 18 116/74 (88) 98 04/27/20 13:00 18 118/61 Mechanical Ventilator 55 04/27/20 13:00 18 118/61 Mechanical Ventilator 55 04/27/20 13:00 67 18 118/61 (80) 98 04/27/20 12:48 Mechanical Ventilator 04/27/20 12:30 71 18 116/67 (83) 98 04/27/20 12:00 77 04/27/20 12:00 98.0 73 18 119/63 (81) 98 04/27/20 12:00 18 119/63 Mechanical Ventilator 55 04/27/20 12:00 18 119/63 Mechanical Ventilator 55 04/27/20 12:00 55 04/27/20 11:30 76 19 123/63 (83) 98 04/27/20 11:00 78 18 124/65 (84) 100 04/27/20 11:00 18 124/65 Mechanical Ventilator 55 04/27/20 11:00 18 124/65 Mechanical Ventilator 55 04/27/20 10:55 81 18 55 04/27/20 10:55 81 18 98 Mechanical Ventilator 55 04/27/20 10:30 83 18 123/64 (83) 97 04/27/20 10:00 19 151/68 Mechanical Ventilator 55 04/27/20 10:00 19 151/68 Mechanical Ventilator 55 04/27/20 10:00 96 12 151/68 (95) 92 04/27/20 09:31 107 170/100 04/27/20 09:30 111 21 184/87 (119) 93 04/27/20 09:30 21 170/100 Mechanical Ventilator 50 04/27/20 09:00 109 17 170/100 (123) 94 04/27/20 09:00 22 170/100 Mechanical Ventilator 55 04/27/20 09:00 20 170/100 Mechanical Ventilator 55 04/27/20 08:49 86 20 96 04/27/20 08:30 112 19 161/85 (110) 93 04/27/20 08:00 Mechanical Ventilator 04/27/20 08:00 97.6 115 29 181/89 (119) 94 04/27/20 08:00 28 181/89 Mechanical Ventilator 55 04/27/20 08:00 28 181/89 Mechanical Ventilator 55 04/27/20 08:00 122 04/27/20 07:30 114 17 188/103 (131) 93 04/27/20 07:22 50 04/27/20 07:08 112 25 55 04/27/20 07:00 19 133/69 Mechanical Ventilator 55 04/27/20 07:00 19 133/69 Mechanical Ventilator 55 04/27/20 07:00 78 18 133/69 (90) 97 04/27/20 06:52 73 04/27/20 06:36 185/113 04/27/20 06:13 98.5 04/27/20 06:00 79 9 158/109 (125) 97 04/27/20 06:00 9 158/109 Mechanical Ventilator 50 04/27/20 06:00 9 158/109 Mechanical Ventilator 50 04/27/20 05:46 19 189/96 Mechanical Ventilator 50 04/27/20 05:00 17 198/105 Mechanical Ventilator 50 04/27/20 05:00 20 198/105 Mechanical Ventilator 50 04/27/20 05:00 89 20 198/105 (136) 94 04/27/20 04:50 80 19 50 04/27/20 04:30 91 19 186/97 (126) 93 04/27/20 04:05 17 175/89 Mechanical Ventilator 55 04/27/20 04:05 18 175/89 Mechanical Ventilator 50 04/27/20 04:00 Mechanical Ventilator 04/27/20 04:00 76 17 175/89 (117) 97 04/27/20 04:00 50 04/27/20 03:35 83 17 163/84 (110) 90 04/27/20 03:30 87 17 04/27/20 03:03 53 18 50 04/27/20 03:00 18 105/62 Mechanical Ventilator 55 04/27/20 03:00 18 102/62 Mechanical Ventilator 55 04/27/20 03:00 54 18 105/62 (76) 99 04/27/20 02:30 59 18 106/59 (75) 99 04/27/20 02:00 60 18 113/62 (79) 98 04/27/20 02:00 18 113/62 Mechanical Ventilator 55 04/27/20 02:00 18 113/62 04/27/20 01:08 63 18 50 04/27/20 01:00 18 128/68 Mechanical Ventilator 55 04/27/20 01:00 18 128/68 Mechanical Ventilator 55 04/27/20 01:00 63 18 128/68 (88) 98 04/27/20 00:57 99.0 04/27/20 00:30 71 18 153/89 (110) 98 04/27/20 00:00 77 18 174/92 (119) 98 04/27/20 00:00 55 04/27/20 00:00 18 174/92 Mechanical Ventilator 55 04/27/20 00:00 18 174/92 Mechanical Ventilator 55 04/27/20 00:00 77 18 174/92 (119) 98 04/27/20 00:00 Mechanical Ventilator 04/26/20 23:03 78 18 55 04/26/20 23:00 77 18 154/90 (111) 97 04/26/20 23:00 18 154/90 Mechanical Ventilator 55 04/26/20 23:00 18 154/90 Mechanical Ventilator 55 04/26/20 22:30 90 21 186/100 (128) 95 04/26/20 22:19 22 188/92 Mechanical Ventilator 55 04/26/20 22:00 19 186/100 Mechanical Ventilator 55 04/26/20 22:00 19 186/100 Mechanical Ventilator 55 04/26/20 22:00 84 20 188/92 (124) 97 04/26/20 21:30 69 18 154/79 (104) 99 04/26/20 21:16 71 18 55 04/26/20 21:02 21 154/75 Mechanical Ventilator 55 04/26/20 21:00 70 18 154/75 (101) 99 04/26/20 21:00 18 154/75 Mechanical Ventilator 55 04/26/20 21:00 18 154/75 Mechanical Ventilator 55 04/26/20 20:30 68 18 155/83 (107) 98 04/26/20 20:00 55 04/26/20 20:00 18 166/82 Mechanical Ventilator 55 04/26/20 20:00 18 166/82 Mechanical Ventilator 55 04/26/20 20:00 Mechanical Ventilator 04/26/20 20:00 72 18 166/82 (110) 98 General Appearance: no apparent distress, on vent, patient on isolation, isolation precautions Cardiovascular: normal rate Respiratory/Chest: lungs clear - ant Abdomen: normal bowel sounds, non tender, soft Extremities: no swelling Intake and Output 04/26/20 04/27/20 19:00 07:00 Intake Total 931.902 ml 762.6 ml Output Total 750 ml 900 ml Balance 181.902 ml -137.4 ml Free Water 80 ml 10 ml IV Total 821.902 ml 732.6 ml Tube Feeding 0 ml 0 ml Other 30 ml 20 ml Output Urine Total 750 ml 900 ml Laboratory Tests Test 04/27/20 05:08 White Blood Count 8.1 K/UL (4.8-10.8) Red Blood Count 3.61 M/UL (4.70-6.10) L Hemoglobin 10.3 G/DL (14.2-18.0) L Hematocrit 33.0 % (42.0-52.0) L Mean Corpuscular Volume 91 FL (80-99) Mean Corpuscular Hemoglobin 28.4 PG (27.0-31.0) Mean Corpuscular Hemoglobin Concent 31.1 G/DL (32.0-36.0) L Red Cell Distribution Width 17.6 % (11.6-14.8) H Platelet Count 312 K/UL (150-450) Mean Platelet Volume 6.4 FL (6.5-10.1) L Neutrophils (%) (Auto) 83.6 % (45.0-75.0) H Lymphocytes (%) (Auto) 11.3 % (20.0-45.0) L Monocytes (%) (Auto) 4.3 % (1.0-10.0) Eosinophils (%) (Auto) 0.0 % (0.0-3.0) Basophils (%) (Auto) 0.7 % (0.0-2.0) Prothrombin Time 12.0 SEC (9.30-11.50) H Prothromb Time International Ratio 1.1 (0.9-1.1) Activated Partial Thromboplast Time 26 SEC (23-33) Sodium Level 141 MMOL/L (136-145) Potassium Level 4.4 MMOL/L (3.5-5.1) Chloride Level 103 MMOL/L (98-107) Carbon Dioxide Level 30 MMOL/L (21-32) Anion Gap 8 mmol/L (5-15) Blood Urea Nitrogen 13 mg/dL (7-18) Creatinine 0.3 MG/DL (0.55-1.30) L Estimat Glomerular Filtration Rate > 60 mL/min (>60) Glucose Level 99 MG/DL (74-106) Calcium Level 8.9 MG/DL (8.5-10.1) Objective pt seen persoanlly Manan Awan MD Apr 27, 2020 19:58
[2020-04-27] MEDS: Dyna-Hex 2% Top Sol 2oz TOPIC SCH (20:08)
--- NOTE | 2020-04-27 22:00 | NUR ---
NURSE NOTES: Repositioned for comfort. Suctioned blood tinged secretions from mouth and whitish secretions from trache. Oral care done.
[2020-04-28] VITALS (43 sets, daily range): BP systolic 110–207; BP diastolic 57–109
--- NOTE | 2020-04-28 | NUR ---
NURSE NOTES: Remained sedated for RASS SCORE-2
--- NOTE | 2020-04-28 02:00 | NUR ---
NURSE NOTES: Neuro unchanged. VSS.
[2020-04-28] MEDS: Metoclopramide 10mg/2ml Inj IVP SCH ×4 (02:59→20:02)
--- NOTE | 2020-04-28 04:00 | NUR ---
NURSE NOTES: Complete bed bath with bed changed was done.
[2020-04-28] MEDS: VERSED IV PRN ×3 (04:18→22:00)
[2020-04-28] MEDS: [UNRECOGNIZED DRUG - OTHER] IV PRN ×3 (04:18→22:00)
--- NOTE | 2020-04-28 04:18 | NUR ---
NURSE NOTES: Versed drip tapered down to 13mg/hr per Dr Mata.
[2020-04-28 05:47] LABS: ANION GAP 5 mmol/L (5-15); BASOPHILS % (AUTO) 0.7 % (0.0-2.0); BLOOD UREA NITROGEN 11 mg/dL (7-18); CALCIUM 8.7 MG/DL (8.5-10.1); CARBON DIOXIDE 31 MMOL/L (21-32); CHLORIDE 103 MMOL/L (98-107); CREATININE 0.4 MG/DL (0.55-1.30); EOSINOPHILS % (AUTO) 0.4 % (0.0-3.0); HEMATOCRIT 30.2 % (42.0-52.0); HEMOGLOBIN 9.5 G/DL (14.2-18.0); LYMPHOCYTES % (AUTO) 18.1 % (20.0-45.0); MEAN CORPUSCULAR VOLUME 92 FL (80-99); MONOCYTES % (AUTO) 7.2 % (1.0-10.0); NEUTROPHILS % (AUTO) 73.5 % (45.0-75.0); PLATELET COUNT 263 K/UL (150-450); POTASSIUM 3.8 MMOL/L (3.5-5.1); RED CELL DISTRIBUTION WIDTH 17.8 % (11.6-14.8); SODIUM 139 MMOL/L (136-145); WHITE BLOOD COUNT 5.4 K/UL (4.8-10.8)
[2020-04-28] MEDS: NovoLOG Insulin Flexpen SUBQ SCH ×4 (06:00→17:48)
--- NOTE | 2020-04-28 07:00 | NUR ---
RESPIRATORY NOTE: PT received on AC/VC: 18, 750 45%, +5. Alarms are on and audible. Vent circuit is secure and out of the way. Airway is secure and patent. No s/s of acute respiratory distress noted at this time. Will continue to closely monitor.
--- NOTE | 2020-04-28 07:25 | NUR ---
NURSE NOTES: Received pt and report from PRIYANKA Hayden. Pt is resting on the bed, Sedated RASS -2, awakens to voice. HR currently 71 bpm on conveyor monitor. Pt is trache to vent. Vent settings: AC 18, TV 750, Fio2 45%, peep of 5, and O2sat is at 96%. no s/s of respiratory distress at this time. Pt has NGT, currently NPO for PEG placement scheduled for today. Rectal tube is in place, brown BM noted, no leakage noted. Brownlee catheter is noted, draining well with gravity to urometer. Left arm skin tear noted, optifoam in place for protection. Right upper arm PICC line noted, dressing site intact, clean, and patent. Fetanyl is running at 300mcg/hr and Versed 13mg/hr. Call light within reach. Bed at the lowest position, alarmed, and locked. Will resume plan of care.
--- NOTE | 2020-04-28 07:25 | NUR ---
NURSE HAND-OFF REPORT: Latest Vital Signs: Temperature 98.4 , Pulse 78 , B/P 163 /92 , Respiratory Rate 17 , O2 SAT 95 , Mechanical Ventilator, O2 Flow Rate . Vital Sign Comment: EKG Rhythm: Sinus Rhythm Rhythm change?: N Notified?: N -Dr.Toluie INTERIANO Response: Message left await call Latest Hassan Fall Score: 50 Fall Risk: High Risk Safety Measures: Call light Within Reach, Bed Alarm Zone 3, Side Rails Side Rails x3, Bed position Low and Locked. Fall Precautions: Yellow Socks Yellow Gown Door Sign Patient Fall Education Report given to Lynn MATHEW.
[2020-04-28] MEDS ORDERED: Sterile Water Irrig 1000ml IRRIG ONE (07:30)
[2020-04-28] MEDS ORDERED: NS Irrig 1000ml ONE (07:30)
--- NOTE | 2020-04-28 08:01 | Anethesia Preoperative Eval ---
Anesthesia Pre-op PMH/ROS General Date of Evaluation: Apr 28, 2020 Anesthesiologist: German ASA Score: ASA 4 Mallampati Score Class I : Soft palate, uvula, fauces, pillars visible Class II: Soft palate, uvula, fauces visible Class III: Soft palate, base of uvula visible Class IV: Only hard plate visible Mallampati Classification: Class III Surgeon: Leon Diagnosis: Dysphagia Surgical Procedure: PEG Anesthesia History: none Family History: no anesthesia problems Allergies: Coded Allergies: No Known Allergies (Unverified , 02/05/20) Medications: see eMAR Patient NPO?: Yes NPO Time: 00:00 Anesthesia Pre-op Phys. Exam Physician Exam Last Vital Signs Date Time Temp Pulse Resp B/P (MAP) Pulse Ox O2 Delivery O2 Flow Rate FiO2 04/28/20 07:00 78 17 163/92 (115) 95 04/28/20 07:00 Mechanical Ventilator 45 04/28/20 04:00 98.4 Constitutional: NAD Cardiovascular: RRR Respiratory: other - Trach in place, on mechanical ventilation Airway Exam Mallampati Score: Class III - oraly intubated Anesthesia Pre-op A/P Labs Hematology Test 04/28/20 03:35 White Blood Count 5.4 K/UL (4.8-10.8) Red Blood Count 3.30 M/UL (4.70-6.10) L Hemoglobin 9.5 G/DL (14.2-18.0) L Hematocrit 30.2 % (42.0-52.0) L Mean Corpuscular Volume 92 FL (80-99) Mean Corpuscular Hemoglobin 28.7 PG (27.0-31.0) Mean Corpuscular Hemoglobin Concent 31.3 G/DL (32.0-36.0) L Red Cell Distribution Width 17.8 % (11.6-14.8) H Platelet Count 263 K/UL (150-450) Mean Platelet Volume 6.3 FL (6.5-10.1) L Neutrophils (%) (Auto) 73.5 % (45.0-75.0) Lymphocytes (%) (Auto) 18.1 % (20.0-45.0) L Monocytes (%) (Auto) 7.2 % (1.0-10.0) Eosinophils (%) (Auto) 0.4 % (0.0-3.0) Basophils (%) (Auto) 0.7 % (0.0-2.0) Chemistry Test 04/28/20 03:35 Sodium Level 139 MMOL/L (136-145) Potassium Level 3.8 MMOL/L (3.5-5.1) Chloride Level 103 MMOL/L (98-107) Carbon Dioxide Level 31 MMOL/L (21-32) Anion Gap 5 mmol/L (5-15) Blood Urea Nitrogen 11 mg/dL (7-18) Creatinine 0.4 MG/DL (0.55-1.30) L Estimat Glomerular Filtration Rate > 60 mL/min (>60) Glucose Level 77 MG/DL (74-106) Calcium Level 8.7 MG/DL (8.5-10.1) Risk Assessment & Plan Assessment: ASA IV Plan: GA Status Change Before Surgery: No Pre-Antibiotics Drug: Bonnie Wen MD Apr 28, 2020 08:01
[2020-04-28] MEDS: Bactrim-DS 1 tab ORAL SCH (08:02)
[2020-04-28] MEDS: Lansoprazole 15mg cap GT SCH ×2 (08:02→20:04)
[2020-04-28] MEDS: Solu-MEDROL 40mg Inj IVP SCH ×2 (08:02→20:04)
[2020-04-28] MEDS: Enoxaparin 80mg Inj SUBQ SCH ×2 (08:03→20:03)
[2020-04-28] MEDS: fentaNYL 2500mcg/NS 250ml 250 ML IV SCH ×2 (08:05→19:00)
--- NOTE | 2020-04-28 09:17 | Pulmonology Progress Note ---
Subjective ROS Limited/Unobtainable: Yes Interval Events: S/p tracheostomy 04/25/20 Constitutional: Reports: other - sedated, + vent, no pressors, s/p trach ; Denies: fever HEENT: Repors: no symptoms Respiratory: Reports: dry cough, shortness of breath Cardiovascular: Reports: no symptoms Gastrointestinal/Abdominal: Denies: nausea, vomiting, diarrhea Psychiatric: Reports: other - NA Skin: Denies: rash Musculoskeletal: Reports: other - NA Allergies: Coded Allergies: No Known Allergies (Unverified , 02/05/20) Objective Last 24 Hour Vital Signs Date Time Temp Pulse Resp B/P (MAP) Pulse Ox O2 Delivery O2 Flow Rate FiO2 04/28/20 08:05 18 160/82 Mechanical Ventilator 45 04/28/20 08:00 45 04/28/20 08:00 98.0 78 18 160/82 (108) 94 04/28/20 08:00 Mechanical Ventilator 04/28/20 07:00 78 17 163/92 (115) 95 04/28/20 07:00 18 163/92 Mechanical Ventilator 45 04/28/20 07:00 22 160/82 Mechanical Ventilator 45 04/28/20 07:00 82 17 45 04/28/20 06:30 71 17 157/93 (114) 97 04/28/20 06:00 20 160/80 Mechanical Ventilator 45 04/28/20 06:00 20 148/50 Non-Rebreather 45 04/28/20 06:00 70 18 163/91 (115) 97 04/28/20 05:30 72 18 164/81 (108) 97 04/28/20 05:26 68 18 50 04/28/20 05:18 18 152/61 Mechanical Ventilator 45 04/28/20 05:00 18 148/61 Mechanical Ventilator 45 04/28/20 05:00 72 16 157/83 (107) 97 04/28/20 04:30 68 18 170/87 (114) 97 04/28/20 04:18 21 163/62 Mechanical Ventilator 45 04/28/20 04:03 20 143/52 Mechanical Ventilator 45 04/28/20 04:00 20 158/83 Mechanical Ventilator 45 04/28/20 04:00 65 04/28/20 04:00 45 04/28/20 04:00 Mechanical Ventilator 04/28/20 04:00 98.4 70 18 163/82 (109) 100 04/28/20 03:55 70 18 45 04/28/20 03:48 20 142/60 Mechanical Ventilator 45 04/28/20 03:30 67 18 163/86 (111) 99 04/28/20 03:00 54 18 115/69 (84) 97 04/28/20 03:00 18 113/63 Mechanical Ventilator 45 04/28/20 03:00 20 163/86 Mechanical Ventilator 45 04/28/20 02:30 54 18 113/63 (80) 97 04/28/20 02:00 55 18 113/68 (83) 97 04/28/20 02:00 18 113/63 Mechanical Ventilator 45 04/28/20 02:00 20 113/63 Mechanical Ventilator 45 04/28/20 01:35 61 18 45 04/28/20 01:30 55 18 110/66 (81) 97 04/28/20 01:00 55 18 113/63 (80) 97 04/28/20 01:00 18 110/66 Mechanical Ventilator 45 04/28/20 01:00 18 113/63 Mechanical Ventilator 45 04/28/20 00:30 57 18 116/68 (84) 97 04/28/20 00:00 60 04/28/20 00:00 20 116/68 Mechanical Ventilator 45 04/28/20 00:00 18 116/68 Mechanical Ventilator 45 04/28/20 00:00 50 04/28/20 00:00 98.4 57 18 119/64 (82) 97 04/28/20 00:00 Mechanical Ventilator 04/27/20 23:50 57 18 45 04/27/20 23:30 58 18 119/69 (86) 99 04/27/20 23:22 20 117/73 Mechanical Ventilator 50 04/27/20 23:00 60 18 117/73 (88) 99 04/27/20 23:00 18 119/61 Mechanical Ventilator 45 04/27/20 23:00 18 119/69 Mechanical Ventilator 45 04/27/20 22:30 65 18 104/61 (75) 98 04/27/20 22:00 18 138/73 Mechanical Ventilator 45 04/27/20 22:00 18 104/61 Mechanical Ventilator 45 04/27/20 22:00 64 18 116/64 (81) 98 04/27/20 21:51 60 18 50 04/27/20 21:30 65 18 138/73 (94) 98 04/27/20 21:00 65 16 143/68 (93) 98 04/27/20 21:00 21 138/73 Mechanical Ventilator 50 04/27/20 21:00 21 138/73 Mechanical Ventilator 50 04/27/20 20:30 66 18 136/78 (97) 98 04/27/20 20:10 21 132/68 Mechanical Ventilator 50 04/27/20 20:00 Mechanical Ventilator 04/27/20 20:00 55 04/27/20 20:00 20 120/60 Mechanical Ventilator 50 04/27/20 20:00 21 120/36 Mechanical Ventilator 50 04/27/20 20:00 98.2 65 16 129/68 (88) 98 04/27/20 19:58 60 18 50 04/27/20 19:30 65 18 130/73 (92) 98 04/27/20 19:00 63 17 141/68 (92) 99 04/27/20 19:00 18 141/68 Mechanical Ventilator 50 04/27/20 19:00 18 141/68 Mechanical Ventilator 50 04/27/20 18:30 18 111/67 Mechanical Ventilator 50 04/27/20 18:00 18 106/62 Mechanical Ventilator 50 04/27/20 18:00 18 106/62 Mechanical Ventilator 50 04/27/20 18:00 66 18 106/62 (77) 99 04/27/20 17:30 60 18 105/62 (76) 99 04/27/20 17:00 59 18 107/62 (77) 98 04/27/20 17:00 18 107/62 Mechanical Ventilator 50 04/27/20 17:00 18 107/62 Mechanical Ventilator 50 04/27/20 16:30 61 18 110/61 (77) 98 04/27/20 16:30 21 132/68 Mechanical Ventilator 50 04/27/20 16:00 Mechanical Ventilator 04/27/20 16:00 61 04/27/20 16:00 18 113/65 Mechanical Ventilator 50 04/27/20 16:00 18 113/65 Mechanical Ventilator 50 04/27/20 16:00 98.6 66 18 113/65 (81) 97 04/27/20 16:00 50 04/27/20 15:30 73 17 133/77 (95) 98 04/27/20 15:02 67 18 50 2/25/21 15:00 18 136/63 Mechanical Ventilator 55 04/27/20 15:00 18 136/63 Mechanical Ventilator 55 04/27/20 15:00 71 18 136/63 (87) 98 04/27/20 14:30 74 19 136/76 (96) 98 04/27/20 14:29 18 159/59 Mechanical Ventilator 55 04/27/20 14:14 18 159/81 Mechanical Ventilator 55 04/27/20 14:00 82 14 159/81 (107) 97 04/27/20 14:00 18 159/81 Mechanical Ventilator 55 04/27/20 14:00 18 159/81 Mechanical Ventilator 55 04/27/20 13:30 71 18 116/74 (88) 98 04/27/20 13:00 18 118/61 Mechanical Ventilator 55 04/27/20 13:00 18 118/61 Mechanical Ventilator 55 04/27/20 13:00 67 18 118/61 (80) 98 04/27/20 12:48 Mechanical Ventilator 04/27/20 12:30 71 18 116/67 (83) 98 04/27/20 12:00 77 04/27/20 12:00 98.0 73 18 119/63 (81) 98 04/27/20 12:00 18 119/63 Mechanical Ventilator 55 04/27/20 12:00 18 119/63 Mechanical Ventilator 55 04/27/20 12:00 55 04/27/20 11:30 76 19 123/63 (83) 98 04/27/20 11:00 78 18 124/65 (84) 100 04/27/20 11:00 18 124/65 Mechanical Ventilator 55 04/27/20 11:00 18 124/65 Mechanical Ventilator 55 04/27/20 10:55 81 18 55 04/27/20 10:55 81 18 98 Mechanical Ventilator 55 04/27/20 10:30 83 18 123/64 (83) 97 04/27/20 10:00 19 151/68 Mechanical Ventilator 55 04/27/20 10:00 19 151/68 Mechanical Ventilator 55 04/27/20 10:00 96 12 151/68 (95) 92 04/27/20 09:31 107 170/100 04/27/20 09:30 111 21 184/87 (119) 93 04/27/20 09:30 21 170/100 Mechanical Ventilator 50 Intake and Output 04/27/20 04/28/20 19:00 07:00 Intake Total 890.88 ml 1294.2 ml Output Total 1025 ml 650 ml Balance -134.12 ml 644.2 ml Free Water 30 ml IV Total 810.88 ml 1294.2 ml Other 50 ml Output Urine Total 1005 ml 600 ml Stool Total 20 ml 50 ml General Appearance: WD/WN, no acute distress HEENT: normocephalic, atraumatic, status post trach Respiratory: chest wall non-tender Cardiovascular: normal rate, regular rhythm Abdomen: normal bowel sounds, soft, non tender, other - obese Laboratory Tests 04/28/20 03:35: White Blood Count 5.4, Red Blood Count 3.30L, Hemoglobin 9.5L, Hematocrit 30.2L, Mean Corpuscular Volume 92, Mean Corpuscular Hemoglobin 28.7, Mean Corpuscular Hemoglobin Concent 31.3L, Red Cell Distribution Width 17.8H, Platelet Count 263, Mean Platelet Volume 6.3L, Neutrophils (%) (Auto) 73.5, Lymphocytes (%) (Auto) 18.1L, Monocytes (%) (Auto) 7.2, Eosinophils (%) (Auto) 0.4, Basophils (%) (Auto) 0.7, Sodium Level 139, Potassium Level 3.8, Chloride Level 103, Carbon Dioxide Level 31, Anion Gap 5, Blood Urea Nitrogen 11, Creatinine 0.4L, Estimat Glomerular Filtration Rate > 60, Glucose Level 77, Calcium Level 8.7 Current Medications Medications (Trade) Dose Ordered Sig/Dennis Route PRN Reason Start Time Stop Time Status Last Admin Dose Admin Acetaminophen (Tylenol) 650 mg Q4H PRN ORAL Temp >100.5 04/13/20 00:30 05/13/20 00:29 04/13/20 01:30 Amlodipine Besylate (Norvasc) 2.5 mg BID PRN ORAL sbp greater than 165 04/27/20 20:00 05/27/20 19:59 Bisacodyl (Dulcolax) 10 mg Q12H PRN RECTAL Constipation 03/18/20 16:45 06/16/20 16:44 Chlorhexidine Gluconate (Marlen-Hex 2%) 1 applic DAILY@1999 TOPIC 03/30/20 20:00 06/28/20 19:59 04/27/20 20:08 Dextrose (Dextrose 50%) 25 ml Q30M PRN IV Hypoglycemia 03/29/20 20:45 06/27/20 20:44 Dextrose (Dextrose 50%) 50 ml Q30M PRN IV Hypoglycemia 03/29/20 20:45 06/27/20 20:44 Enoxaparin Sodium (Lovenox) 80 mg EVERY 12 HOURS SUBQ 04/06/20 21:00 07/05/20 20:59 04/27/20 09:39 Fentanyl Citrate 250 ml @ 1 mls/hr Q24H IV 04/27/20 22:00 04/29/20 21:59 04/28/20 08:05 Hydralazine HCl (Apresoline) 10 mg Q4H PRN IV For High Blood Pressure 03/30/20 12:15 06/28/20 12:14 04/27/20 06:36 Insulin Aspart (NovoLOG) Q6HR SUBQ 03/30/20 00:00 06/28/20 00:00 04/25/20 18:03 Lansoprazole (Prevacid) 15 mg Q12HR GT 04/20/20 21:00 05/20/20 20:59 04/27/20 20:51 Methylprednisolone Sodium Succinate (Solu-MEDROL) 20 mg Q12HR IVP 04/12/20 21:00 06/20/20 20:59 04/28/20 08:02 Metoclopramide HCl (Reglan) 10 mg Q6H IVP 03/30/20 15:00 04/29/20 14:59 04/28/20 08:02 Midazolam HCl 200 ml @ 0 mls/hr Q24H PRN IV SEDATION 04/25/20 01:00 05/02/20 00:29 04/28/20 04:18 Morphine Sulfate (Morphine Sulfate) 4 mg Q6H PRN IVP agitation despite sedating med 04/21/20 12:45 04/28/20 12:44 04/27/20 05:43 Quetiapine Fumarate (SEROqueL) 50 mg Q12HR ORAL 04/27/20 21:00 06/11/20 20:59 04/27/20 20:51 Sodium Chloride 1,000 ml @ 50 mls/hr Q20H IV 04/27/20 20:00 05/27/20 19:59 04/27/20 20:10 Trimethoprim/ Sulfamethoxazole (Bactrim-DS) 1 tab DAILY ORAL 04/23/20 20:00 05/23/20 19:59 04/27/20 09:28 Assessment/Plan Assessment/Plan 1.COVID-19 pneumonia. - Completed specific therapies - On solumedrol 20 Iv q 12 2. DVT ppx - on lovenox 3. Hypertension - no longer on meds - Not requiring pressors 4. Leukocytosis; - ID following - Candidemia documented 03/18/20 5. Elevated LFT - positive Hep C; treated in the past with IF 6. Respiratory failure -Intubated 03/28/20; s/p tracheostomy 04/25/20 -Family aware - Prognosis guarded - Vt 750; rate 18 -On sedation; added Morphine to Versed/fentanyl -> will wean off 7. Discussed with cardiology -No evidence for cardiac dysfunction or PE 8. AMS -back on sedation - has apparent left arm paresis - Will consider CT brain when more stable S/p new PICC line Noted left upper extremity swelling. Has DVT; on full dose Lovenox Continue sedation, DC propofol given high triglycerides. slowly wean off fentanyl and Versed. Saturations plummeted 04/20/20 when patient became agitated Now fully sedated on 80->100 ->90 ->80 -> 50 ->45% FiO2 ; PEEP 5 Will wean down FiO2 as tolerated CXR shows bilateral interstitial changes? fibrosis? Plans noted for PEG The care for this patient was discussed with my supervising physician Time spent for this case was approximately 31 minutes Edilson Marinelli Apr 28, 2020 09:17
--- NOTE | 2020-04-28 10:15 | NUR ---
NURSE NOTES: Dr Mata on the unit, making his rounds. Updated him on pt's current condition.
[2020-04-28] MEDS ORDERED: cefOXitin Sod 1 GM in D5W 55 ML IVPB SCH (10:30)
--- NOTE | 2020-04-28 10:31 | Pulmonology Progress Note ---
Subjective ROS Limited/Unobtainable: Yes Interval Events: S/p tracheostomy 04/25/20 Constitutional: Reports: other - sedated, + vent, no pressors, s/p trach ; Denies: fever HEENT: Repors: no symptoms Respiratory: Reports: dry cough, shortness of breath Cardiovascular: Reports: no symptoms Gastrointestinal/Abdominal: Denies: nausea, vomiting, diarrhea Psychiatric: Reports: other - NA Skin: Denies: rash Musculoskeletal: Reports: other - NA Allergies: Coded Allergies: No Known Allergies (Unverified , 02/05/20) Objective Last 24 Hour Vital Signs Date Time Temp Pulse Resp B/P (MAP) Pulse Ox O2 Delivery O2 Flow Rate FiO2 04/28/20 10:00 18 153/88 Mechanical Ventilator 45 04/28/20 10:00 18 153/88 Mechanical Ventilator 45 04/28/20 10:00 78 18 153/88 (109) 93 04/28/20 09:00 18 148/84 Mechanical Ventilator 45 04/28/20 09:00 18 148/84 Mechanical Ventilator 45 04/28/20 09:00 73 17 148/84 (105) 96 04/28/20 08:05 18 160/82 Mechanical Ventilator 45 04/28/20 08:00 78 04/28/20 08:00 45 04/28/20 08:00 18 160/82 Mechanical Ventilator 45 04/28/20 08:00 18 160/82 Mechanical Ventilator 45 04/28/20 08:00 98.0 78 18 160/82 (108) 94 04/28/20 08:00 Mechanical Ventilator 04/28/20 07:00 78 17 163/92 (115) 95 04/28/20 07:00 18 163/92 Mechanical Ventilator 45 04/28/20 07:00 22 160/82 Mechanical Ventilator 45 04/28/20 07:00 82 17 45 04/28/20 06:30 71 17 157/93 (114) 97 04/28/20 06:00 20 160/80 Mechanical Ventilator 45 04/28/20 06:00 20 148/50 Non-Rebreather 45 04/28/20 06:00 70 18 163/91 (115) 97 04/28/20 05:30 72 18 164/81 (108) 97 04/28/20 05:26 68 18 50 04/28/20 05:18 18 152/61 Mechanical Ventilator 45 04/28/20 05:00 18 148/61 Mechanical Ventilator 45 04/28/20 05:00 72 16 157/83 (107) 97 04/28/20 04:30 68 18 170/87 (114) 97 04/28/20 04:18 21 163/62 Mechanical Ventilator 45 04/28/20 04:03 20 143/52 Mechanical Ventilator 45 04/28/20 04:00 20 158/83 Mechanical Ventilator 45 04/28/20 04:00 65 04/28/20 04:00 45 04/28/20 04:00 Mechanical Ventilator 04/28/20 04:00 98.4 70 18 163/82 (109) 100 04/28/20 03:55 70 18 45 04/28/20 03:48 20 142/60 Mechanical Ventilator 45 04/28/20 03:30 67 18 163/86 (111) 99 04/28/20 03:00 54 18 115/69 (84) 97 04/28/20 03:00 18 113/63 Mechanical Ventilator 45 04/28/20 03:00 20 163/86 Mechanical Ventilator 45 04/28/20 02:30 54 18 113/63 (80) 97 04/28/20 02:00 55 18 113/68 (83) 97 04/28/20 02:00 18 113/63 Mechanical Ventilator 45 04/28/20 02:00 20 113/63 Mechanical Ventilator 45 04/28/20 01:35 61 18 45 04/28/20 01:30 55 18 110/66 (81) 97 04/28/20 01:00 55 18 113/63 (80) 97 04/28/20 01:00 18 110/66 Mechanical Ventilator 45 04/28/20 01:00 18 113/63 Mechanical Ventilator 45 04/28/20 00:30 57 18 116/68 (84) 97 04/28/20 00:00 60 04/28/20 00:00 20 116/68 Mechanical Ventilator 45 04/28/20 00:00 18 116/68 Mechanical Ventilator 45 04/28/20 00:00 50 04/28/20 00:00 98.4 57 18 119/64 (82) 97 04/28/20 00:00 Mechanical Ventilator 04/27/20 23:50 57 18 45 04/27/20 23:30 58 18 119/69 (86) 99 04/27/20 23:22 20 117/73 Mechanical Ventilator 50 04/27/20 23:00 60 18 117/73 (88) 99 04/27/20 23:00 18 119/61 Mechanical Ventilator 45 04/27/20 23:00 18 119/69 Mechanical Ventilator 45 04/27/20 22:30 65 18 104/61 (75) 98 04/27/20 22:00 18 138/73 Mechanical Ventilator 45 04/27/20 22:00 18 104/61 Mechanical Ventilator 45 04/27/20 22:00 64 18 116/64 (81) 98 04/27/20 21:51 60 18 50 04/27/20 21:30 65 18 138/73 (94) 98 04/27/20 21:00 65 16 143/68 (93) 98 04/27/20 21:00 21 138/73 Mechanical Ventilator 50 04/27/20 21:00 21 138/73 Mechanical Ventilator 50 04/27/20 20:30 66 18 136/78 (97) 98 04/27/20 20:10 21 132/68 Mechanical Ventilator 50 04/27/20 20:00 Mechanical Ventilator 04/27/20 20:00 55 04/27/20 20:00 20 120/60 Mechanical Ventilator 50 04/27/20 20:00 21 120/36 Mechanical Ventilator 50 04/27/20 20:00 98.2 65 16 129/68 (88) 98 04/27/20 19:58 60 18 50 04/27/20 19:30 65 18 130/73 (92) 98 04/27/20 19:00 63 17 141/68 (92) 99 04/27/20 19:00 18 141/68 Mechanical Ventilator 50 04/27/20 19:00 18 141/68 Mechanical Ventilator 50 04/27/20 18:30 18 111/67 Mechanical Ventilator 50 04/27/20 18:00 18 106/62 Mechanical Ventilator 50 04/27/20 18:00 18 106/62 Mechanical Ventilator 50 04/27/20 18:00 66 18 106/62 (77) 99 04/27/20 17:30 60 18 105/62 (76) 99 04/27/20 17:00 59 18 107/62 (77) 98 04/27/20 17:00 18 107/62 Mechanical Ventilator 50 04/27/20 17:00 18 107/62 Mechanical Ventilator 50 04/27/20 16:30 61 18 110/61 (77) 98 04/27/20 16:30 21 132/68 Mechanical Ventilator 50 04/27/20 16:00 Mechanical Ventilator 04/27/20 16:00 61 04/27/20 16:00 18 113/65 Mechanical Ventilator 50 04/27/20 16:00 18 113/65 Mechanical Ventilator 50 04/27/20 16:00 98.6 66 18 113/65 (81) 97 04/27/20 16:00 50 04/27/20 15:30 73 17 133/77 (95) 98 04/27/20 15:02 67 18 50 04/27/20 15:00 18 136/63 Mechanical Ventilator 55 04/27/20 15:00 18 136/63 Mechanical Ventilator 55 04/27/20 15:00 71 18 136/63 (87) 98 04/27/20 14:30 74 19 136/76 (96) 98 04/27/20 14:29 18 159/59 Mechanical Ventilator 55 04/27/20 14:14 18 159/81 Mechanical Ventilator 55 04/27/20 14:00 82 14 159/81 (107) 97 04/27/20 14:00 18 159/81 Mechanical Ventilator 55 04/27/20 14:00 18 159/81 Mechanical Ventilator 55 04/27/20 13:30 71 18 116/74 (88) 98 04/27/20 13:00 18 118/61 Mechanical Ventilator 55 04/27/20 13:00 18 118/61 Mechanical Ventilator 55 04/27/20 13:00 67 18 118/61 (80) 98 04/27/20 12:48 Mechanical Ventilator 04/27/20 12:30 71 18 116/67 (83) 98 04/27/20 12:00 77 04/27/20 12:00 98.0 73 18 119/63 (81) 98 04/27/20 12:00 18 119/63 Mechanical Ventilator 55 04/27/20 12:00 18 119/63 Mechanical Ventilator 55 04/27/20 12:00 55 04/27/20 11:30 76 19 123/63 (83) 98 04/27/20 11:00 78 18 124/65 (84) 100 04/27/20 11:00 18 124/65 Mechanical Ventilator 55 04/27/20 11:00 18 124/65 Mechanical Ventilator 55 04/27/20 10:55 81 18 55 04/27/20 10:55 81 18 98 Mechanical Ventilator 55 Intake and Output 04/27/20 04/28/20 19:00 07:00 Intake Total 890.88 ml 1294.2 ml Output Total 1025 ml 650 ml Balance -134.12 ml 644.2 ml Free Water 30 ml IV Total 810.88 ml 1294.2 ml Other 50 ml Output Urine Total 1005 ml 600 ml Stool Total 20 ml 50 ml General Appearance: WD/WN, no acute distress HEENT: normocephalic, atraumatic, status post trach Respiratory: chest wall non-tender Cardiovascular: normal rate, regular rhythm Abdomen: normal bowel sounds, soft, non tender, other - obese Laboratory Tests 04/28/20 03:35: White Blood Count 5.4, Red Blood Count 3.30L, Hemoglobin 9.5L, Hematocrit 30.2L, Mean Corpuscular Volume 92, Mean Corpuscular Hemoglobin 28.7, Mean Corpuscular Hemoglobin Concent 31.3L, Red Cell Distribution Width 17.8H, Platelet Count 263, Mean Platelet Volume 6.3L, Neutrophils (%) (Auto) 73.5, Lymphocytes (%) (Auto) 18.1L, Monocytes (%) (Auto) 7.2, Eosinophils (%) (Auto) 0.4, Basophils (%) (Auto) 0.7, Sodium Level 139, Potassium Level 3.8, Chloride Level 103, Carbon Dioxide Level 31, Anion Gap 5, Blood Urea Nitrogen 11, Creatinine 0.4L, Estimat Glomerular Filtration Rate > 60, Glucose Level 77, Calcium Level 8.7 Current Medications Medications (Trade) Dose Ordered Sig/Dennis Route PRN Reason Start Time Stop Time Status Last Admin Dose Admin Acetaminophen (Tylenol) 650 mg Q4H PRN ORAL Temp >100.5 04/13/20 00:30 05/13/20 00:29 04/13/20 01:30 Amlodipine Besylate (Norvasc) 2.5 mg BID PRN ORAL sbp greater than 165 04/27/20 20:00 05/27/20 19:59 Bisacodyl (Dulcolax) 10 mg Q12H PRN RECTAL Constipation 03/18/20 16:45 06/16/20 16:44 Cefoxitin Sodium 1 gm/Dextrose 55 ml @ 110 mls/hr ONCE IVPB 04/28/20 10:30 04/28/20 16:30 Chlorhexidine Gluconate (Marlen-Hex 2%) 1 applic DAILY@2000 TOPIC 03/30/20 20:00 06/28/20 19:59 04/27/20 20:08 Dextrose (Dextrose 50%) 25 ml Q30M PRN IV Hypoglycemia 03/29/20 20:45 06/27/20 20:44 Dextrose (Dextrose 50%) 50 ml Q30M PRN IV Hypoglycemia 03/29/20 20:45 06/27/20 20:44 Enoxaparin Sodium (Lovenox) 80 mg EVERY 12 HOURS SUBQ 04/06/20 21:00 07/05/20 20:59 04/27/20 09:39 Fentanyl Citrate 250 ml @ 1 mls/hr Q24H IV 04/27/20 22:00 04/29/20 21:59 04/28/20 08:05 Hydralazine HCl (Apresoline) 10 mg Q4H PRN IV For High Blood Pressure 03/30/20 12:15 06/28/20 12:14 04/27/20 06:36 Insulin Aspart (NovoLOG) Q6HR SUBQ 03/30/20 00:00 06/28/20 00:00 04/25/20 18:03 Lansoprazole (Prevacid) 15 mg Q12HR GT 04/20/20 21:00 05/20/20 20:59 04/27/20 20:51 Methylprednisolone Sodium Succinate (Solu-MEDROL) 20 mg Q12HR IVP 04/12/20 21:00 06/20/20 20:59 04/28/20 08:02 Metoclopramide HCl (Reglan) 10 mg Q6H IVP 03/30/20 15:00 04/29/20 14:59 04/28/20 08:02 Midazolam HCl 200 ml @ 0 mls/hr Q24H PRN IV SEDATION 04/25/20 01:00 05/02/20 00:29 04/28/20 04:18 Morphine Sulfate (Morphine Sulfate) 4 mg Q6H PRN IVP agitation despite sedating med 04/21/20 12:45 04/28/20 12:44 04/27/20 05:43 Quetiapine Fumarate (SEROqueL) 50 mg Q12HR ORAL 04/27/20 21:00 06/11/20 20:59 04/27/20 20:51 Sodium Chloride 1,000 ml @ 50 mls/hr Q20H IV 04/27/20 20:00 05/27/20 19:59 04/27/20 20:10 Trimethoprim/ Sulfamethoxazole (Bactrim-DS) 1 tab DAILY ORAL 04/23/20 20:00 05/23/20 19:59 04/27/20 09:28 Assessment/Plan Assessment/Plan Assessment/Plan 1.COVID-19 pneumonia. - Completed specific therapies - On solumedrol 20 Iv q 12 2. DVT ppx - on lovenox 3. Hypertension - no longer on meds - Not requiring pressors 4. Leukocytosis; - ID following - Off abx - Candidemia documented 03/18/20 5. Elevated LFT - positive Hep C; treated in the past with IF 6. Respiratory failure -Intubated 03/28/20; s/p tracheostomy 04/25/20 -Family aware - Prognosis guarded - Vt 750; rate 18 -On sedation; added Morphine to Versed/fentanyl 7. Discussed with cardiology -No evidence for cardiac dysfunction or PE 8. AMS -back on sedation - has apparent left arm paresis - Will consider CT brain when more stable S/p new PICC line Noted left upper extremity swelling. Has DVT; on full dose Lovenox Continue sedation, DC propofol given high triglycerides. Continue fentanyl and Versed. Saturations plummeted 04/20/20 when patient became agitated Now fully sedated on 80->100 ->90 ->80 -> 50% FiO2 ; PEEP 5 Will wean down FiO2 as tolerated CXR shows bilateral interstitial changes? fibrosis? Plans noted for PEG today John Mata MD Apr 28, 2020 10:31
--- NOTE | 2020-04-28 10:39 | Nephrology Progress Note ---
Assessment/Plan Problem List: (1) Dehydration (2) Electrolyte imbalance (3) COVID-19 virus infection (4) Pneumonia (5) DMII (diabetes mellitus, type 2) (6) Protein malnutrition Assessment Azotemia, hypernatremia Hypoalbuminemia Staff Otilia bacteremia COVID-19 isolation, pneumonia, bilateral infiltrate Hypertension Diabetes mellitus History of smoking Plan April 28: Status quo. Labs reviewed. Renal parameters stable. Patient n .p.o. due for PEG insertion. IV changed to D5 normal saline. Continue per consultants. April 27: Status quo. Labs reviewed. Medication list reviewed. Stable from renal standpoint of view. Abnormal electrolytes addressed. April 26: Patient is now trached and connected to vent. FiO2 70%. Labs reviewed. Renal parameters stable. Medication list reviewed. Continue per c onsultants. April 25: Status quo. Full code. FiO2 55%. No labs drawn today. Continue to monitor electrolytes and renal parameters. Continue per consultants. April 24: Status quo. Full code. Intubated on ventilator. FiO2 65%. Labs reviewed. Renal parameters and electrolytes stable. April 23: Status unchanged. Full code. Intubated on ventilator. FiO2 75%. Labs reviewed. Renal parameters stable. Continue per consultants. April 22: Labs reviewed. Patient remains intubated on ventilator and full code. FiO2 90%. Day 77 hospitalization. Not much to add from renal standpoint of view April 21: No CHEM panel drawn today. FiO2 60%. Patient full code. Continue per consultants. April 20: Labs reviewed. Renal parameters stable. Patient remains full code. Intubated on ventilator with FiO2 currently at 70%. Continue per consultants. April 19: No labs drawn today. Remains full code on FiO2 of 100%. Continue per consultants. April 18: Status quo. Labs reviewed. Renal parameters stable. April 17: Status quo. Intubated on ventilator. Full code. Labs reviewed. Electrolytes and renal parameters stable. Continue per consultants. April 16: Girlfriend in the room. Patient awake. Intubated. Full code. Labs reviewed. Abnormal electrolyte addressed. Continue per consultants. April 15: Labs reviewed. Electrolytes and renal parameters stable. Patient full code. Continues to be intubated on ventilator. April 14: Status quo. Labs reviewed. Remains intubated on ventilator. Full code. Continue per consultants. April 13: Status quo. Labs reviewed. Renal parameters electrolytes stable. Continue per current treatment plan. April 12: On higher FiO2. Will resume Lasix daily. Continue to monitor electrolytes and renal parameters. Per consultants. April 11: FiO2 went up to 85%. Renal parameters and electrolytes reasonably well-maintained. Will monitor serum potassium. Will give IV Lasix. April 10: Status quo. Labs reviewed. Remains intubated on ventilator with FiO2 of 65%. Remains full code. Stable from renal standpoint to view. Repeat vitamin D level on April 08 pending April 09: Status quo. Labs reviewed. Stable from renal standpoint of view. Continue per consultants. April 08: Discussed with RN. Labs reviewed. Clinically improving. Requires lower PEEP. Continue per pulmonary. Continue to monitor renal parameters. April 07: Remains full code and on ventilator. Labs reviewed. Renal parameters and electrolytes stable. Continue per consultants. Blood pressure marginally improved. April 06: Full code. On ventilator. Blood pressure 80-90 systolic. IV Lasix discontinued. Free water through tube feeding ordered. Continue to monitor electrolytes and serum sodium. Down on fentanyl as possible. Discussed with PRIYANKA Brown. Clonidine patch discontinued. April 05: Status quo. Remains full code. Remains intubated. Labs reviewed. Renal parameters stable. Serum sodium 150 unchanged. Continue per consultants. April 04: Remains intubated and on ventilator. Remains full code. Labs reviewed. Serum sodium 150 unchanged. Renal parameters stable. Continue per ID and pulmonary. April 03: Intubated. On ventilator. Full code. Labs reviewed. Serum sodium 150 unchanged. Continue to monitor renal parameters. Continue per pulmonary and ID. April 02: Full code. On ventilator. Discussed with RN. Serum sodium slightly higher. Will cut down on IV Lasix. Continue per consultants. Continue to monitor renal parameters and electrolytes. April 01: Full code. Remains on ventilator. Labs reviewed. Stable from renal standpoint of view. Continue per consultants. March 31: Full code . Remains intubated on ventilator. Labs reviewed. Patient appears toxic. Discussed with RN. Maintenance IV discontinued. Medication list reviewed. Blood pressure medication stopped due to low blood pressure. Levemir insulin stopped. Continue monitor blood sugar and sliding scale insulin. March 30: Full code. On ventilator. Labs reviewed. Clonidine patch dose increased. Lasix increased. 3% saline 1 time ordered. Continue to monitor electrolytes and renal parameters. March 29: Remains full code. On mechanical ventilation. On tube feeding. Will DC TPN. Will start on maintenance IV fluid. Continue to monitor renal parameters. March 28: On BiPAP. Full code. On TPN. Labs reviewed. Discussed with pharmacy. Continue as is. Watch serum potassium. March 27: Remains on BiPAP. No chemistry panel done today. Full code. On TPN. Will check lab tomorrow. March 26: Remains on BiPAP. Remains on TPN. Labs reviewed. Electrolytes and chemistries within normal limits. Continue as is. March 25: Remains on TPN. Labs reviewed. Discussed with pharmacy. Change IV Protonix to p.o. Continue 3% saline infusion with Lasix. Patient full code. March 24: Continue to be on TPN. Labs are reviewed. Aim to collect electrolytes. Discussed with pharmacy. Continue current consultants. March 23: Continues to be on TPN. Labs reviewed. Electrolytes and chemistries all acceptable. Discussed with pharmacy. Continue current management. March 22: On TPN. Labs reviewed. Low sodium noted. 3% saline to be continued. Continue to monitor electrolytes. Discussed with pharmacy. March 21: On TPN. Labs reviewed. Continue 3% saline and Lasix for mild hyponatremia. Continue TPN as these. Discussed with pharmacy. March 20: Remains on TPN. Labs reviewed. Serum sodium higher on IV Lasix and 3% saline infusion. Continue TPN as is. Continue to monitor renal parameters and electrolytes. Discussed with Dr. Mata March 19: Remains on TPN. Labs reviewed. Serum sodium 128. Will give 3% saline with IV Lasix. Continue to monitor electrolytes. No change in TPN composition. Discussed with pharmacy. March 18: Remains on TPN. Labs reviewed. Discussed with pharmacist. Will give 3 doses of IV Lasix 20 mg every 8 hours. Continue to monitor serum sodium electrolytes uric acid. White blood cells down. Continue per consultants. March 17: On TPN. Labs reviewed. Discussed with pharmacist. Sodium content increase. Continue to monitor CMP. Patient continues to have leukocytosis. March 16: On TPN. Labs reviewed. Discussed with pharmacist. Appropriate changes made. Continue to monitor electrolytes. March 15: Remains on TPN. Labs reviewed. Discussed with pharmacist. Continue per current management. March 14: Remains on TPN. Labs reviewed, stable. Vitamin D level low, replacement ordered. Continue to monitor electrolytes and renal parameters. March 13: Patient remains on TPN. Discussed with pharmacist. TPN's sodium content adjusted. Labs reviewed. Continue to monitor electrolytes. Blood pressure remains stable. Continue per consultants. March 12: Patient on TPN. Labs reviewed. CPK remains elevated. Abnormal electrolytes and high blood sugar discussed with pharmacist and TPN adjusted. Continue to monitor labs. Oral Protonix added. Ibuprofen discontinued. Can continue to monitor electrolytes and chemistries. Levemir for high blood sugar added. March 11: Patient on TPN. Labs as of 11:15 AM is still pending. Continue per current treatment plan. Will check labs and adjust TPN as needed. Continue per consultants. March 10: Patient on TPN. Labs reviewed. Electrolytes overall stable. CPK is elevated. Will monitor electrolyte, CPK level, lipid panel. Continue per consultants. Discussed with pharmacist. Discussed with RN. Nutritional evaluation noted. Previously: D5W 100 cc an hour Monitor electrolytes renal parameters TPN and Intralipid ordered Will follow Continue per consultants Dietary consult requested Subjective ROS Limited/Unobtainable: Yes Objective Objective Last 24 Hour Vital Signs Date Time Temp Pulse Resp B/P (MAP) Pulse Ox O2 Delivery O2 Flow Rate FiO2 04/28/20 10:00 18 153/88 Mechanical Ventilator 45 04/28/20 10:00 18 153/88 Mechanical Ventilator 45 04/28/20 10:00 78 18 153/88 (109) 93 04/28/20 09:00 18 148/84 Mechanical Ventilator 45 04/28/20 09:00 18 148/84 Mechanical Ventilator 45 04/28/20 09:00 73 17 148/84 (105) 96 04/28/20 08:05 18 160/82 Mechanical Ventilator 45 04/28/20 08:00 78 04/28/20 08:00 45 04/28/20 08:00 18 160/82 Mechanical Ventilator 45 04/28/20 08:00 18 160/82 Mechanical Ventilator 45 04/28/20 08:00 98.0 78 18 160/82 (108) 94 04/28/20 08:00 Mechanical Ventilator 04/28/20 07:00 78 17 163/92 (115) 95 04/28/20 07:00 18 163/92 Mechanical Ventilator 45 04/28/20 07:00 22 160/82 Mechanical Ventilator 45 04/28/20 07:00 82 17 45 04/28/20 06:30 71 17 157/93 (114) 97 04/28/20 06:00 20 160/80 Mechanical Ventilator 45 04/28/20 06:00 20 148/50 Non-Rebreather 45 04/28/20 06:00 70 18 163/91 (115) 97 04/28/20 05:30 72 18 164/81 (108) 97 04/28/20 05:26 68 18 50 04/28/20 05:18 18 152/61 Mechanical Ventilator 45 04/28/20 05:00 18 148/61 Mechanical Ventilator 45 04/28/20 05:00 72 16 157/83 (107) 97 04/28/20 04:30 68 18 170/87 (114) 97 04/28/20 04:18 21 163/62 Mechanical Ventilator 45 04/28/20 04:03 20 143/52 Mechanical Ventilator 45 04/28/20 04:00 20 158/83 Mechanical Ventilator 45 04/28/20 04:00 65 04/28/20 04:00 45 04/28/20 04:00 Mechanical Ventilator 04/28/20 04:00 98.4 70 18 163/82 (109) 100 04/28/20 03:55 70 18 45 04/28/20 03:48 20 142/60 Mechanical Ventilator 45 04/28/20 03:30 67 18 163/86 (111) 99 04/28/20 03:00 54 18 115/69 (84) 97 04/28/20 03:00 18 113/63 Mechanical Ventilator 45 04/28/20 03:00 20 163/86 Mechanical Ventilator 45 04/28/20 02:30 54 18 113/63 (80) 97 04/28/20 02:00 55 18 113/68 (83) 97 04/28/20 02:00 18 113/63 Mechanical Ventilator 45 04/28/20 02:00 20 113/63 Mechanical Ventilator 45 04/28/20 01:35 61 18 45 04/28/20 01:30 55 18 110/66 (81) 97 04/28/20 01:00 55 18 113/63 (80) 97 04/28/20 01:00 18 110/66 Mechanical Ventilator 45 04/28/20 01:00 18 113/63 Mechanical Ventilator 45 04/28/20 00:30 57 18 116/68 (84) 97 04/28/20 00:00 60 04/28/20 00:00 20 116/68 Mechanical Ventilator 45 04/28/20 00:00 18 116/68 Mechanical Ventilator 45 04/28/20 00:00 50 04/28/20 00:00 98.4 57 18 119/64 (82) 97 04/28/20 00:00 Mechanical Ventilator 04/27/20 23:50 57 18 45 04/27/20 23:30 58 18 119/69 (86) 99 04/27/20 23:22 20 117/73 Mechanical Ventilator 50 04/27/20 23:00 60 18 117/73 (88) 99 04/27/20 23:00 18 119/61 Mechanical Ventilator 45 04/27/20 23:00 18 119/69 Mechanical Ventilator 45 04/27/20 22:30 65 18 104/61 (75) 98 04/27/20 22:00 18 138/73 Mechanical Ventilator 45 04/27/20 22:00 18 104/61 Mechanical Ventilator 45 04/27/20 22:00 64 18 116/64 (81) 98 04/27/20 21:51 60 18 50 04/27/20 21:30 65 18 138/73 (94) 98 04/27/20 21:00 65 16 143/68 (93) 98 04/27/20 21:00 21 138/73 Mechanical Ventilator 50 04/27/20 21:00 21 138/73 Mechanical Ventilator 50 04/27/20 20:30 66 18 136/78 (97) 98 04/27/20 20:10 21 132/68 Mechanical Ventilator 50 04/27/20 20:00 Mechanical Ventilator 04/27/20 20:00 55 04/27/20 20:00 20 120/60 Mechanical Ventilator 50 04/27/20 20:00 21 120/36 Mechanical Ventilator 50 04/27/20 20:00 98.2 65 16 129/68 (88) 98 04/27/20 19:58 60 18 50 04/27/20 19:30 65 18 130/73 (92) 98 04/27/20 19:00 63 17 141/68 (92) 99 04/27/20 19:00 18 141/68 Mechanical Ventilator 50 04/27/20 19:00 18 141/68 Mechanical Ventilator 50 04/27/20 18:30 18 111/67 Mechanical Ventilator 50 04/27/20 18:00 18 106/62 Mechanical Ventilator 50 04/27/20 18:00 18 106/62 Mechanical Ventilator 50 04/27/20 18:00 66 18 106/62 (77) 99 04/27/20 17:30 60 18 105/62 (76) 99 04/27/20 17:00 59 18 107/62 (77) 98 04/27/20 17:00 18 107/62 Mechanical Ventilator 50 04/27/20 17:00 18 107/62 Mechanical Ventilator 50 04/27/20 16:30 61 18 110/61 (77) 98 04/27/20 16:30 21 132/68 Mechanical Ventilator 50 04/27/20 16:00 Mechanical Ventilator 04/27/20 16:00 61 04/27/20 16:00 18 113/65 Mechanical Ventilator 50 04/27/20 16:00 18 113/65 Mechanical Ventilator 50 04/27/20 16:00 98.6 66 18 113/65 (81) 97 04/27/20 16:00 50 04/27/20 15:30 73 17 133/77 (95) 98 04/27/20 15:02 67 18 50 04/27/20 15:00 18 136/63 Mechanical Ventilator 55 04/27/20 15:00 18 136/63 Mechanical Ventilator 55 04/27/20 15:00 71 18 136/63 (87) 98 04/27/20 14:30 74 19 136/76 (96) 98 04/27/20 14:29 18 159/59 Mechanical Ventilator 55 04/27/20 14:14 18 159/81 Mechanical Ventilator 55 04/27/20 14:00 82 14 159/81 (107) 97 04/27/20 14:00 18 159/81 Mechanical Ventilator 55 04/27/20 14:00 18 159/81 Mechanical Ventilator 55 04/27/20 13:30 71 18 116/74 (88) 98 04/27/20 13:00 18 118/61 Mechanical Ventilator 55 04/27/20 13:00 18 118/61 Mechanical Ventilator 55 04/27/20 13:00 67 18 118/61 (80) 98 04/27/20 12:48 Mechanical Ventilator 04/27/20 12:30 71 18 116/67 (83) 98 04/27/20 12:00 77 04/27/20 12:00 98.0 73 18 119/63 (81) 98 04/27/20 12:00 18 119/63 Mechanical Ventilator 55 04/27/20 12:00 18 119/63 Mechanical Ventilator 55 04/27/20 12:00 55 04/27/20 11:30 76 19 123/63 (83) 98 04/27/20 11:00 78 18 124/65 (84) 100 04/27/20 11:00 18 124/65 Mechanical Ventilator 55 04/27/20 11:00 18 124/65 Mechanical Ventilator 55 04/27/20 10:55 81 18 55 04/27/20 10:55 81 18 98 Mechanical Ventilator 55 Intake and Output 04/27/20 04/28/20 19:00 07:00 Intake Total 890.88 ml 1294.2 ml Output Total 1025 ml 650 ml Balance -134.12 ml 644.2 ml Free Water 30 ml IV Total 810.88 ml 1294.2 ml Other 50 ml Output Urine Total 1005 ml 600 ml Stool Total 20 ml 50 ml Current Medications Medications (Trade) Dose Ordered Sig/Dennis Route PRN Reason Start Time Stop Time Status Last Admin Dose Admin Acetaminophen (Tylenol) 650 mg Q4H PRN ORAL Temp >100.5 04/13/20 00:30 05/13/20 00:29 04/13/20 01:30 Amlodipine Besylate (Norvasc) 2.5 mg BID PRN ORAL sbp greater than 165 04/27/20 20:00 05/27/20 19:59 Bisacodyl (Dulcolax) 10 mg Q12H PRN RECTAL Constipation 03/18/20 16:45 06/16/20 16:44 Cefoxitin Sodium 1 gm/Dextrose 55 ml @ 110 mls/hr ONCE IVPB 04/28/20 10:30 04/28/20 16:30 04/28/20 11:00 Chlorhexidine Gluconate (Marlen-Hex 2%) 1 applic DAILY@2000 TOPIC 03/30/20 20:00 06/28/20 19:59 04/27/20 20:08 Dextrose (Dextrose 50%) 25 ml Q30M PRN IV Hypoglycemia 03/29/20 20:45 06/27/20 20:44 Dextrose (Dextrose 50%) 50 ml Q30M PRN IV Hypoglycemia 03/29/20 20:45 06/27/20 20:44 Enoxaparin Sodium (Lovenox) 80 mg EVERY 12 HOURS SUBQ 04/06/20 21:00 07/05/20 20:59 04/27/20 09:39 Fentanyl Citrate 250 ml @ 1 mls/hr Q24H IV 04/27/20 22:00 04/29/20 21:59 04/28/20 08:05 Hydralazine HCl (Apresoline) 10 mg Q4H PRN IV For High Blood Pressure 03/30/20 12:15 06/28/20 12:14 04/27/20 06:36 Insulin Aspart (NovoLOG) Q6HR SUBQ 03/30/20 00:00 06/28/20 00:00 04/25/20 18:03 Lansoprazole (Prevacid) 15 mg Q12HR GT 04/20/20 21:00 05/20/20 20:59 04/27/20 20:51 Methylprednisolone Sodium Succinate (Solu-MEDROL) 20 mg Q12HR IVP 04/12/20 21:00 06/20/20 20:59 04/28/20 08:02 Metoclopramide HCl (Reglan) 10 mg Q6H IVP 03/30/20 15:00 04/29/20 14:59 04/28/20 08:02 Midazolam HCl 200 ml @ 0 mls/hr Q24H PRN IV SEDATION 04/25/20 01:00 05/02/20 00:29 04/28/20 12:01 Morphine Sulfate (Morphine Sulfate) 4 mg Q6H PRN IVP agitation despite sedating med 04/21/20 12:45 04/28/20 12:44 04/27/20 05:43 Quetiapine Fumarate (SEROqueL) 50 mg Q12HR ORAL 04/27/20 21:00 06/11/20 20:59 04/27/20 20:51 Sodium Chloride 1,000 ml @ 50 mls/hr Q20H IV 04/27/20 20:00 05/27/20 19:59 04/27/20 20:10 Trimethoprim/ Sulfamethoxazole (Bactrim-DS) 1 tab DAILY ORAL 04/23/20 20:00 05/23/20 19:59 04/27/20 09:28 Laboratory Tests 04/28/20 03:35: White Blood Count 5.4, Red Blood Count 3.30L, Hemoglobin 9.5L, Hematocrit 30.2L, Mean Corpuscular Volume 92, Mean Corpuscular Hemoglobin 28.7, Mean Corpuscular Hemoglobin Concent 31.3L, Red Cell Distribution Width 17.8H, Platelet Count 263, Mean Platelet Volume 6.3L, Neutrophils (%) (Auto) 73.5, Lymphocytes (%) (Auto) 18.1L, Monocytes (%) (Auto) 7.2, Eosinophils (%) (Auto) 0.4, Basophils (%) (Auto) 0.7, Sodium Level 139, Potassium Level 3.8, Chloride Level 103, Carbon Dioxide Level 31, Anion Gap 5, Blood Urea Nitrogen 11, Creatinine 0.4L, Estimat Glomerular Filtration Rate > 60, Glucose Level 77, Calcium Level 8.7 Height (Feet): 5 Height (Inches): 10.00 Weight (Pounds): 243 General Appearance: no apparent distress Cardiovascular: normal rate Respiratory/Chest: decreased breath sounds Abdomen: distended Rubin Cooper MD Apr 28, 2020 10:39
--- NOTE | 2020-04-28 11:40 | NUR ---
NURSE NOTES: Dr Cooper on the unit making his rounds. Updated him on pt's current condition. Informed him that it was endorsed to tech writer that pt's BS was low this AM. Maintenance fluid will be changed.
--- NOTE | 2020-04-28 11:49 | NUR ---
NURSE NOTES: BS is currently 113.
--- NOTE | 2020-04-28 12:57 | Pre-Procedure Note/Attestation ---
Pre-Procedure Note/Attestation Complete Prior to Procedure Planned Procedure: not applicable Procedure Narrative: egd/peg Indications for Procedure Pre-Operative Diagnosis: dysphagia Attestation I attest that I discussed the nature of the procedure; its benefits; risks and complications; and alternatives (and the risks and benefits of such alternatives), prior to the procedure, with the patient (or the patient's legal community relations representative). I attest that, if there was a reasonable possibility of needing a blood transfu nick, the patient (or the patient's legal community relations representative) was given the [facility] standardized written summary, pursuant to the Keith Narayan Blood Safety Act ([place] Health and Safety Code # 1645, as amended). I attest that I re-evaluated the patient just prior to the surgery and that there has been no change in the patient's H&P, except as documented below: Da Quintero MD Apr 28, 2020 12:57
[2020-04-28] MEDS ORDERED: LR 1000ml ONE (13:00)
[2020-04-28] MEDS ORDERED: Lidocaine 1% MPF 10mg/ml 5ml ONE (13:00)
--- NOTE | 2020-04-28 13:00 | NUR ---
NURSE NOTES: Dr Quintero on the unit with GI team. Preparing pt for PEG insertion.
--- NOTE | 2020-04-28 13:03 | Anethesia Preoperative Eval ---
Anesthesia Pre-op PMH/ROS General Date of Evaluation: Apr 28, 2020 Time of Evaluation: 13:04 Anesthesiologist: [place] ASA Score: ASA 4 Mallampati Score Class I : Soft palate, uvula, fauces, pillars visible Class II: Soft palate, uvula, fauces visible Class III: Soft palate, base of uvula visible Class IV: Only hard plate visible Mallampati Classification: Class III Surgeon: Leon Diagnosis: Abd Pain Surgical Procedure: EGD Anesthesia History: none Family History: no anesthesia problems Allergies: Coded Allergies: No Known Allergies (Unverified , 02/05/20) Medications: see eMAR Patient NPO?: Yes NPO Time: 00:00 Past Medical History Cardiovascular: Reports: HTN Pulmonary: Reports: other - Covid Pneumonia Hematology/Immune: Reports: anemia Other: obesity - BMI 37 PSxH Narrative: Intubated, Scheduled for Trach Anesthesia Pre-op Phys. Exam Physician Exam Last Vital Signs Date Time Temp Pulse Resp B/P (MAP) Pulse Ox O2 Delivery O2 Flow Rate FiO2 04/28/20 12:01 18 118/62 Mechanical Ventilator 45 04/28/20 12:00 98.7 58 94 Constitutional: NAD Neurologic: CN 2-12 intact Cardiovascular: RRR Respiratory: CTA Gastrointestinal: S/NT/ND Airway Exam Mallampati Score: Class III - oraly intubated MO: limited ROM: limited Teeth: missing, intact Anesthesia Pre-op A/P Labs Hematology Test 04/28/20 03:35 White Blood Count 5.4 K/UL (4.8-10.8) Red Blood Count 3.30 M/UL (4.70-6.10) L Hemoglobin 9.5 G/DL (14.2-18.0) L Hematocrit 30.2 % (42.0-52.0) L Mean Corpuscular Volume 92 FL (80-99) Mean Corpuscular Hemoglobin 28.7 PG (27.0-31.0) Mean Corpuscular Hemoglobin Concent 31.3 G/DL (32.0-36.0) L Red Cell Distribution Width 17.8 % (11.6-14.8) H Platelet Count 263 K/UL (150-450) Mean Platelet Volume 6.3 FL (6.5-10.1) L Neutrophils (%) (Auto) 73.5 % (45.0-75.0) Lymphocytes (%) (Auto) 18.1 % (20.0-45.0) L Monocytes (%) (Auto) 7.2 % (1.0-10.0) Eosinophils (%) (Auto) 0.4 % (0.0-3.0) Basophils (%) (Auto) 0.7 % (0.0-2.0) Chemistry Test 04/28/20 03:35 Sodium Level 139 MMOL/L (136-145) Potassium Level 3.8 MMOL/L (3.5-5.1) Chloride Level 103 MMOL/L (98-107) Carbon Dioxide Level 31 MMOL/L (21-32) Anion Gap 5 mmol/L (5-15) Blood Urea Nitrogen 11 mg/dL (7-18) Creatinine 0.4 MG/DL (0.55-1.30) L Estimat Glomerular Filtration Rate > 60 mL/min (>60) Glucose Level 77 MG/DL (74-106) Calcium Level 8.7 MG/DL (8.5-10.1) Risk Assessment & Plan Assessment: ASA 4 Plan: TIVA Status Change Before Surgery: Jerry Zavala MD Apr 28, 2020 13:03
[2020-04-28] MEDS ORDERED: NS 500ML IVPB ONE (13:05)
--- NOTE | 2020-04-28 13:24 | Endoscopy Procedure Note ---
Endoscopy Procedure Note General Indication for Procedure: dysphagia Procedures Performed: EGD, PEG Operative Findings/Diagnosis: same Specimen: none Pt Tolerated Procedure Well: Yes Estimated Blood Loss: none Anesthesia Anesthesiologist: yo Anesthesia: MAC Inserted Devices Implant(s) used?: No GI Core Measures 50 yrs or older w/o bx or poly: Not Applicable 10yrs. F/U recommended: Not Applicable Da Quintero MD Apr 28, 2020 13:24
--- NOTE | 2020-04-28 13:28 | NUR ---
NURSE NOTES: PEG insertion complete. Pt tolerated procedure well.
[2020-04-28] MEDS ORDERED: Dextrose 10% 1,000 ML IV SCH (13:30)
--- NOTE | 2020-04-28 13:32 | Immediate Post-Op Evaluation ---
Immediate Post-Op Evalulation Immediate Post-Op Evalulation Procedure: Tracheostomy Date of Evaluation: Apr 28, 2020 Time of Evaluation: 13:34 IV Fluids: 200 NS Blood Products: 0 Estimated Blood Loss: 1 Urinary Output: 0 Blood Pressure Systolic: 141 Blood Pressure Diastolic: 87 Pulse Rate: 63 Respiratory Rate: 20 O2 Sat by Pulse Oximetry: 97 Temperature (Fahrenheit): 98 Pain Score (1-10): 0 Nausea: No Vomiting: No Complications 0 Patient Status: no response, patent, ventilated, none Hydration Status: adequate Jerry Chowdhury MD Apr 28, 2020 13:32
--- NOTE | 2020-04-28 13:34 | 48 Hour Post Anesthesia Eval ---
Post Anesthesia Evaluation Procedure: Tracheostomy Date of Evaluation: Apr 28, 2020 Time of Evaluation: 16:23 Blood Pressure Systolic: 189 0: 92 Pulse Rate: 63 Respiratory Rate: 20 Temperature (Fahrenheit): 98 O2 Sat by Pulse Oximetry: 97 Airway: patent Nausea: No Vomiting: No Pain Intensity: 0 Hydration Status: adequate Cardiopulmonary Status: Stable Mental Status/LOC: patient returned to baseline Follow-up Care/Observations: 0 Post-Anesthesia Complications: 0 Follow-up care needed: N/A Jerry Chowdhury MD Apr 28, 2020 13:34
--- NOTE | 2020-04-28 14:29 | Procedure Note ---
DATE OF PROCEDURE: 02/26/2020 SURGEON: Da Quintero MD. PROCEDURE: Upper endoscopy with PEG placement. ANESTHESIA: Per Dr. Chowdhury. INSTRUMENT: Olympus adult flexible upper endoscope. INDICATION: Dysphagia. REASON FOR PROCEDURE: The procedure, risks, benefits, and possible consequences, including hemorrhage, aspiration, perforation and infection, and alternative treatments, were explained to the patient/legal guardian by Dr. Da Quintero and the patient/legal guardian understood and accepted these risks. PROCEDURE IN DETAIL: After informed consent was obtained and the patient was adequately sedated, Olympus upper endoscope was advanced from mouth into the second portion of the duodenum and retroflexion was performed in the stomach. Then under endoscopic guidance under sterile condition, a 20-Thai pull type of G-tube was successfully placed in epigastric area. The distance from the tip of the tube to skin was about 2.5 cm in size. The patient tolerated the procedure very well without any complication. SUMMARY OF FINDINGS: Status post successful PEG placement RECOMMENDATIONS: 1. Abdominal binder. 2. Elevate the head of bed at all times. 3. G-tube flush. 4. G-tube care. 5. Start tube feeding later today. 6. The patient received a dose of antibiotics prior to this procedure. Da Quintero M.D. DR: Nuris JOB#: [id number] CC:
--- NOTE | 2020-04-28 14:52 | NUR ---
INSURANCE CLINCALS FAXED TO [employer] T: [phone] #1 F: [phone] AND [employer] MACHINE TENDER:JACQUELINE JAMES T: [phone] F: [phone]
--- NOTE | 2020-04-28 15:30 | NUR ---
NURSE NOTES: NGT removed
--- NOTE | 2020-04-28 17:00 | NUR ---
NURSE NOTES: Hydralazline 10MG given for SBP of 188
--- NOTE | 2020-04-28 17:22 | Surgery Progress Note ---
Surgery Progress Note Subjective Procedure Performed tracheostomy Symptoms: improved Objective Last 24 Hour Vital Signs Date Time Temp Pulse Resp B/P (MAP) Pulse Ox O2 Delivery O2 Flow Rate FiO2 04/28/20 16:56 188/90 04/28/20 16:30 103 25 198/100 (132) 94 04/28/20 16:00 118 04/28/20 16:00 45 04/28/20 16:00 Mechanical Ventilator 04/28/20 16:00 98.7 118 19 207/92 (130) 85 04/28/20 15:30 99 21 187/88 (121) 93 04/28/20 15:20 69 18 45 04/28/20 15:00 101 18 195/109 (137) 92 04/28/20 14:00 20 189/93 Mechanical Ventilator 45 04/28/20 14:00 20 189/93 Mechanical Ventilator 45 04/28/20 14:00 71 19 189/93 (125) 95 04/28/20 13:34 63 20 97 04/28/20 13:32 63 20 97 04/28/20 13:00 19 169/96 Mechanical Ventilator 45 04/28/20 13:00 19 169/96 Mechanical Ventilator 45 04/28/20 13:00 71 18 169/96 (120) 96 04/28/20 12:01 18 118/62 Mechanical Ventilator 45 04/28/20 12:00 Mechanical Ventilator 04/28/20 12:00 98.7 58 18 118/62 (80) 94 04/28/20 12:00 18 118/62 Mechanical Ventilator 45 04/28/20 12:00 18 118/62 Mechanical Ventilator 45 04/28/20 12:00 45 04/28/20 12:00 58 04/28/20 11:00 63 18 129/64 (85) 98 04/28/20 11:00 18 129/64 Mechanical Ventilator 45 04/28/20 11:00 18 129/64 Mechanical Ventilator 45 04/28/20 10:55 61 18 45 04/28/20 10:00 18 153/88 Mechanical Ventilator 45 04/28/20 10:00 18 153/88 Mechanical Ventilator 45 04/28/20 10:00 78 18 153/88 (109) 93 04/28/20 09:00 18 148/84 Mechanical Ventilator 45 04/28/20 09:00 18 148/84 Mechanical Ventilator 45 04/28/20 09:00 73 17 148/84 (105) 96 04/28/20 08:05 18 160/82 Mechanical Ventilator 45 04/28/20 08:00 78 04/28/20 08:00 45 04/28/20 08:00 18 160/82 Mechanical Ventilator 45 04/28/20 08:00 18 160/82 Mechanical Ventilator 45 04/28/20 08:00 98.0 78 18 160/82 (108) 94 04/28/20 08:00 Mechanical Ventilator 04/28/20 07:00 78 17 163/92 (115) 95 04/28/20 07:00 18 163/92 Mechanical Ventilator 45 04/28/20 07:00 22 160/82 Mechanical Ventilator 45 04/28/20 07:00 82 18 45 04/28/20 06:30 71 17 157/93 (114) 97 04/28/20 06:00 20 160/80 Mechanical Ventilator 45 04/28/20 06:00 20 148/50 Non-Rebreather 45 04/28/20 06:00 70 18 163/91 (115) 97 04/28/20 05:30 72 18 164/81 (108) 97 04/28/20 05:26 68 18 50 04/28/20 05:18 18 152/61 Mechanical Ventilator 45 04/28/20 05:00 18 148/61 Mechanical Ventilator 45 04/28/20 05:00 72 16 157/83 (107) 97 04/28/20 04:30 68 18 170/87 (114) 97 04/28/20 04:18 21 163/62 Mechanical Ventilator 45 04/28/20 04:03 20 143/52 Mechanical Ventilator 45 04/28/20 04:00 20 158/83 Mechanical Ventilator 45 04/28/20 04:00 65 04/28/20 04:00 45 04/28/20 04:00 Mechanical Ventilator 04/28/20 04:00 98.4 70 18 163/82 (109) 100 04/28/20 03:55 70 18 45 04/28/20 03:48 20 142/60 Mechanical Ventilator 45 04/28/20 03:30 67 18 163/86 (111) 99 04/28/20 03:00 54 18 115/69 (84) 97 04/28/20 03:00 18 113/63 Mechanical Ventilator 45 04/28/20 03:00 20 163/86 Mechanical Ventilator 45 04/28/20 02:30 54 18 113/63 (80) 97 04/28/20 02:00 55 18 113/68 (83) 97 04/28/20 02:00 18 113/63 Mechanical Ventilator 45 04/28/20 02:00 20 113/63 Mechanical Ventilator 45 04/28/20 01:35 61 18 45 04/28/20 01:30 55 18 110/66 (81) 97 04/28/20 01:00 55 18 113/63 (80) 97 04/28/20 01:00 18 110/66 Mechanical Ventilator 45 04/28/20 01:00 18 113/63 Mechanical Ventilator 45 04/28/20 00:30 57 18 116/68 (84) 97 04/28/20 00:00 60 04/28/20 00:00 20 116/68 Mechanical Ventilator 45 04/28/20 00:00 18 116/68 Mechanical Ventilator 45 04/28/20 00:00 50 04/28/20 00:00 98.4 57 18 119/64 (82) 97 04/28/20 00:00 Mechanical Ventilator 04/27/20 23:50 57 18 45 04/27/20 23:30 58 18 119/69 (86) 99 04/27/20 23:22 20 117/73 Mechanical Ventilator 50 04/27/20 23:00 60 18 117/73 (88) 99 04/27/20 23:00 18 119/61 Mechanical Ventilator 45 04/27/20 23:00 18 119/69 Mechanical Ventilator 45 04/27/20 22:30 65 18 104/61 (75) 98 04/27/20 22:00 18 138/73 Mechanical Ventilator 45 04/27/20 22:00 18 104/61 Mechanical Ventilator 45 04/27/20 22:00 64 18 116/64 (81) 98 04/27/20 21:51 60 18 50 04/27/20 21:30 65 18 138/73 (94) 98 04/27/20 21:00 65 16 143/68 (93) 98 04/27/20 21:00 21 138/73 Mechanical Ventilator 50 04/27/20 21:00 21 138/73 Mechanical Ventilator 50 04/27/20 20:30 66 18 136/78 (97) 98 04/27/20 20:10 21 132/68 Mechanical Ventilator 50 04/27/20 20:00 Mechanical Ventilator 04/27/20 20:00 55 04/27/20 20:00 20 120/60 Mechanical Ventilator 50 04/27/20 20:00 21 120/36 Mechanical Ventilator 50 04/27/20 20:00 98.2 65 16 129/68 (88) 98 04/27/20 19:58 60 18 50 04/27/20 19:30 65 18 130/73 (92) 98 04/27/20 19:00 63 17 141/68 (92) 99 04/27/20 19:00 18 141/68 Mechanical Ventilator 50 04/27/20 19:00 18 141/68 Mechanical Ventilator 50 04/27/20 18:30 18 111/67 Mechanical Ventilator 50 04/27/20 18:00 18 106/62 Mechanical Ventilator 50 04/27/20 18:00 18 106/62 Mechanical Ventilator 50 04/27/20 18:00 66 18 106/62 (77) 99 04/27/20 17:30 60 18 105/62 (76) 99 I&O Intake and Output 04/27/20 04/28/20 18:59 06:59 Intake Total 952.88 ml 1226.2 ml Output Total 1145 ml 690 ml Balance -192.12 ml 536.2 ml Free Water 40 ml IV Total 842.88 ml 1226.2 ml Other 70 ml Output Urine Total 1125 ml 640 ml Stool Total 20 ml 50 ml Dressing: dry Wound: clean Cardiovascular: RSR Respiratory: clear Abdomen: soft, non-tender, present bowel sounds Extremities: no tenderness, no cyanosis Laboratory Tests Test 04/27/20 18:02 04/28/20 03:35 POC Whole Blood Glucose 105 MG/DL (74-106) White Blood Count 5.4 K/UL (4.8-10.8) Red Blood Count 3.30 M/UL (4.70-6.10) L Hemoglobin 9.5 G/DL (14.2-18.0) L Hematocrit 30.2 % (42.0-52.0) L Mean Corpuscular Volume 92 FL (80-99) Mean Corpuscular Hemoglobin 28.7 PG (27.0-31.0) Mean Corpuscular Hemoglobin Concent 31.3 G/DL (32.0-36.0) L Red Cell Distribution Width 17.8 % (11.6-14.8) H Platelet Count 263 K/UL (150-450) Mean Platelet Volume 6.3 FL (6.5-10.1) L Neutrophils (%) (Auto) 73.5 % (45.0-75.0) Lymphocytes (%) (Auto) 18.1 % (20.0-45.0) L Monocytes (%) (Auto) 7.2 % (1.0-10.0) Eosinophils (%) (Auto) 0.4 % (0.0-3.0) Basophils (%) (Auto) 0.7 % (0.0-2.0) Sodium Level 139 MMOL/L (136-145) Potassium Level 3.8 MMOL/L (3.5-5.1) Chloride Level 103 MMOL/L (98-107) Carbon Dioxide Level 31 MMOL/L (21-32) Anion Gap 5 mmol/L (5-15) Blood Urea Nitrogen 11 mg/dL (7-18) Creatinine 0.4 MG/DL (0.55-1.30) L Estimat Glomerular Filtration Rate > 60 mL/min (>60) Glucose Level 77 MG/DL (74-106) Calcium Level 8.7 MG/DL (8.5-10.1) Plan Problems: (1) Pneumonia (2) Staphylococcus aureus bacteremia (3) COVID-19 virus infection (4) Chest pain (5) Hypertension (6) Dehydration (7) Electrolyte imbalance (8) DMII (diabetes mellitus, type 2) (9) Protein malnutrition (10) Respiratory insufficiency Assessment & Plan: 64-year-old male with respiratory insufficiency intubated in an intensive care unit. Patient has been unable to safely wean off ventilatory support. Surgery called to evaluate for tracheostomy. After careful evaluation patient is a candidate for tracheostomy. In the meantime will obtain consent. If consent obtained will proceed with scheduling. Thank you for your participation's care will follow recommendations Booker Rausch Apr 28, 2020 17:22
--- NOTE | 2020-04-28 17:32 | NUR ---
NURSE NOTES: Pt fully cleaned and linens changed. Pt suctioned and oral care done. Pt noted to be coughing often
--- NOTE | 2020-04-28 19:07 | NUR ---
NURSE HAND-OFF REPORT: Latest Vital Signs: Temperature 99.1 , Pulse 117 , B/P 149 /72 , Respiratory Rate 24 , O2 SAT 93 , Mechanical Ventilator, FiO2 45% . Vital Sign Comment: EKG Rhythm: Sinus Tachycardia Rhythm change?: N MD Notified?: MD Response: Latest Hassan Fall Score: 50 Fall Risk: High Risk Safety Measures: Call light Within Reach, Bed Alarm Zone 3, Side Rails Side Rails x3, Bed position Low and Locked. Fall Precautions: Yellow Socks Yellow Gown Door Sign Patient Fall Education Report given to PRIYANKA Willett.
--- NOTE | 2020-04-28 19:30 | NUR ---
NURSE NOTES: Received report from Yoana MATHEW.
[2020-04-28] MEDS: Dyna-Hex 2% Top Sol 2oz TOPIC SCH (20:02)
--- NOTE | 2020-04-28 20:45 | NUR ---
NURSE NOTES: Titrated Fentanyl to 300mcg/hr, Versed at 20mg/hr RASS score +3 meredith agitated. Deviated from protocol due to extreme agitation , BP is high 179/86 HR 134,saturation 88%.
--- NOTE | 2020-04-28 21:00 | NUR ---
NURSE NOTES: Continue on Fentanyl to 300mcg/hr, Versed at 20mg/hr RASS score -2. comfort measure provide. repositioned patient in bed. will continue plan of care.
--- NOTE | 2020-04-28 23:00 | NUR ---
NURSE NOTES: patient in bed sedated. trach to vent fi02 50% satting 98%. Continue on Fentanyl to 300mcg/hr, Versed at 20mg/hr RASS score -2. comfort measure provide. repositioned patient in bed.no s/s of hypo/hyperglycemia. will continue plan of care.
[2020-04-29] VITALS (38 sets, daily range): BP systolic 89–188; BP diastolic 39–91
--- NOTE | 2020-04-29 01:00 | NUR ---
NURSE NOTES: Patient in bed sedated. no fever. repositioned patient in bed. frequent visual checks continued. Brownlee draining. Rectal tube intact. no s/s of acute distress noted. will continue plan of care.
[2020-04-29] MEDS: Metoclopramide 10mg/2ml Inj IVP SCH ×2 (03:21→08:54)
[2020-04-29] MEDS: [UNRECOGNIZED DRUG - OTHER] IV PRN ×4 (03:32→21:42)
[2020-04-29] MEDS: VERSED IV PRN ×4 (03:32→21:42)
[2020-04-29] MEDS: fentaNYL 2500mcg/NS 250ml 250 ML IV SCH ×2 (03:55→13:53)
--- NOTE | 2020-04-29 04:00 | NUR ---
NURSE NOTES: Bed bath given tolerated well.
[2020-04-29 04:21] LABS: BASOPHILS % (AUTO) 0.4 % (0.0-2.0); HEMATOCRIT 31.4 % (42.0-52.0); HEMOGLOBIN 9.9 G/DL (14.2-18.0); LYMPHOCYTES % (AUTO) 10.4 % (20.0-45.0); MEAN CORPUSCULAR VOLUME 91 FL (80-99); MONOCYTES % (AUTO) 4.3 % (1.0-10.0); NEUTROPHILS % (AUTO) 84.9 % (45.0-75.0); PLATELET COUNT 281 K/UL (150-450); RED BLOOD COUNT 3.44 M/UL (4.70-6.10); RED CELL DISTRIBUTION WIDTH 17.5 % (11.6-14.8); WHITE BLOOD COUNT 7.3 K/UL (4.8-10.8)
[2020-04-29 04:47] LABS: ANION GAP 8 mmol/L (5-15); BLOOD UREA NITROGEN 10 mg/dL (7-18); CARBON DIOXIDE 30 MMOL/L (21-32); CHLORIDE 106 MMOL/L (98-107); CREATININE 0.4 MG/DL (0.55-1.30); POTASSIUM 3.8 MMOL/L (3.5-5.1); SODIUM 144 MMOL/L (136-145)
--- NOTE | 2020-04-29 05:53 | NUR ---
NURSE NOTES: BP 188/72 HR 90 Hydralazine 10mg IVP given
[2020-04-29] MEDS: NovoLOG Insulin Flexpen SUBQ SCH ×4 (06:00→17:31)
--- NOTE | 2020-04-29 06:00 | NUR ---
NURSE NOTES: Rechecked BP 151/63 HR 84.
--- NOTE | 2020-04-29 07:07 | NUR ---
RESPIRATORY NOTE: PT received on AC/VC: 18, 750 50%, +5. FiO2 was decreased to 45%. Patient is tolerating change well. Kalpesh MATHEW aware. Alarms are on and audible. Vent circuit is secure and out of the way. Airway is secure and patent. No s/s of acute respiratory distress noted at this time. Will continue to closely monitor.
--- NOTE | 2020-04-29 07:15 | NUR ---
NURSE HAND-OFF REPORT: Latest Vital Signs: Temperature 99.0 , Pulse 60 , B/P 91 /44 , Respiratory Rate 18 , O2 SAT 97 , Mechanical Ventilator, O2 Flow Rate . Vital Sign Comment: EKG Rhythm: Rhythm change?: N MD Notified?: N - MD Response: Message left await call Latest Hassan Fall Score: 50 Fall Risk: High Risk Safety Measures: Call light Within Reach, Bed Alarm Zone 3, Side Rails Side Rails x3, Bed position Low and Locked. Fall Precautions: Yellow Socks Yellow Gown Door Sign Patient Fall Education Report given to Desi MATHEW.
[2020-04-29] MEDS: Solu-MEDROL 40mg Inj IVP SCH ×2 (08:54→20:30)
[2020-04-29] MEDS: Lansoprazole 15mg cap GT SCH ×2 (08:54→21:00)
[2020-04-29] MEDS: Bactrim-DS 1 tab ORAL SCH (08:54)
[2020-04-29] MEDS: Enoxaparin 80mg Inj SUBQ SCH ×2 (08:56→20:32)
--- NOTE | 2020-04-29 09:10 | NUR ---
RESPIRATORY NOTE: FiO2 decreased to 40% Kalpesh MATHEW aware.
--- NOTE | 2020-04-29 09:19 | Surgery Progress Note ---
Surgery Progress Note Subjective Procedure Performed tracheostomy Symptoms: improved, tolerating diet, passing flatus Objective Last 24 Hour Vital Signs Date Time Temp Pulse Resp B/P (MAP) Pulse Ox O2 Delivery O2 Flow Rate FiO2 04/29/20 08:59 18 119/58 Endotracheal Tube 45 04/29/20 08:30 65 17 128/59 (82) 98 04/29/20 08:00 97.1 54 18 93/44 (60) 98 04/29/20 08:00 17 128/59 Endotracheal Tube 45 04/29/20 08:00 17 128/59 Endotracheal Tube 45 04/29/20 07:15 58 18 91/44 (60) 97 04/29/20 07:07 57 18 45 04/29/20 07:00 18 91/44 Mechanical Ventilator 50 04/29/20 07:00 18 91/44 Mechanical Ventilator 50 04/29/20 07:00 61 18 94/44 (61) 96 04/29/20 06:45 70 18 104/47 (66) 94 04/29/20 06:30 76 18 136/66 (89) 96 04/29/20 06:15 95 23 177/74 (108) 93 04/29/20 06:00 92 19 151/63 (92) 94 04/29/20 06:00 18 151/63 Mechanical Ventilator 50 04/29/20 06:00 18 151/63 Mechanical Ventilator 50 04/29/20 05:53 188/72 04/29/20 05:50 110 23 188/72 (110) 91 04/29/20 05:45 95 16 175/91 (119) 94 04/29/20 05:30 97 20 176/79 (111) 94 04/29/20 05:24 81 18 50 04/29/20 05:15 89 19 175/79 (111) 96 04/29/20 05:00 18 175/79 Mechanical Ventilator 50 04/29/20 05:00 18 175/79 Mechanical Ventilator 50 04/29/20 05:00 96 17 175/73 (107) 94 04/29/20 04:00 88 04/29/20 04:00 50 04/29/20 04:00 18 181/78 Mechanical Ventilator 50 04/29/20 04:00 18 181/78 Mechanical Ventilator 50 04/29/20 04:00 99.0 88 18 163/77 (105) 98 04/29/20 04:00 Mechanical Ventilator 04/29/20 03:55 18 157/83 Mechanical Ventilator 15.0 50 04/29/20 03:54 18 157/83 Mechanical Ventilator 50 04/29/20 03:32 18 157/83 Mechanical Ventilator 15.0 50 04/29/20 03:31 18 157/83 Mechanical Ventilator 50 04/29/20 03:11 69 18 50 04/29/20 03:00 18 157/83 Mechanical Ventilator 50 04/29/20 03:00 18 157/83 Mechanical Ventilator 50 04/29/20 03:00 62 18 157/83 (107) 100 04/29/20 02:00 60 18 103/60 (74) 100 04/29/20 02:00 18 103/60 Mechanical Ventilator 50 04/29/20 02:00 18 103/60 Mechanical Ventilator 50 04/29/20 01:07 65 18 50 04/29/20 01:00 70 18 133/80 (97) 99 04/29/20 01:00 18 133/80 Mechanical Ventilator 50 04/29/20 01:00 18 133/80 Mechanical Ventilator 50 04/29/20 00:00 69 04/29/20 00:00 50 04/29/20 00:00 Mechanical Ventilator 04/29/20 00:00 18 110/56 Mechanical Ventilator 50 04/29/20 00:00 18 110/56 Mechanical Ventilator 50 04/29/20 00:00 99.0 69 18 110/56 (74) 99 04/28/20 23:09 85 18 50 04/28/20 23:00 88 18 135/63 (87) 97 04/28/20 23:00 18 131/63 Mechanical Ventilator 50 04/28/20 23:00 18 135/63 Mechanical Ventilator 50 04/28/20 22:45 101 20 145/74 (97) 97 04/28/20 22:30 103 21 142/69 (93) 97 04/28/20 22:15 102 21 151/67 (95) 96 04/28/20 22:00 21 151/67 Mechanical Ventilator 50 04/28/20 22:00 19 136/67 Mechanical Ventilator 15.0 50 04/28/20 22:00 101 19 118/57 (77) 96 04/28/20 21:19 99.9 04/28/20 21:18 50 04/28/20 21:14 110 19 50 04/28/20 21:00 21 136/67 Mechanical Ventilator 50 04/28/20 21:00 21 136/67 Mechanical Ventilator 50 04/28/20 21:00 140 22 123/66 (85) 89 04/28/20 20:49 180/90 04/28/20 20:45 130 26 179/86 (117) 96 04/28/20 20:45 23 179/86 Mechanical Ventilator 50 04/28/20 20:45 23 179/86 Mechanical Ventilator 50 04/28/20 20:30 24 180/82 Mechanical Ventilator 50 04/28/20 20:30 24 180/82 Mechanical Ventilator 50 04/28/20 20:30 126 23 180/82 (114) 91 04/28/20 20:15 114 21 163/81 (108) 94 04/28/20 20:15 24 163/81 Mechanical Ventilator 45 04/28/20 20:15 24 163/81 Mechanical Ventilator 45 04/28/20 20:00 114 04/28/20 20:00 22 151/73 Mechanical Ventilator 45 04/28/20 20:00 22 151/73 Mechanical Ventilator 45 04/28/20 20:00 Mechanical Ventilator 04/28/20 20:00 100.0 110 22 151/73 (99) 94 04/28/20 20:00 45 04/28/20 19:45 113 23 154/80 (104) 94 04/28/20 19:34 114 19 45 04/28/20 19:30 115 26 167/71 (103) 94 04/28/20 19:15 119 21 168/78 (108) 93 04/28/20 19:00 117 24 149/72 (97) 93 04/28/20 19:00 24 161/77 Mechanical Ventilator 45 04/28/20 19:00 24 161/77 Mechanical Ventilator 45 04/28/20 18:15 24 143/78 Mechanical Ventilator 45 04/28/20 18:15 24 143/78 Mechanical Ventilator 45 04/28/20 18:00 28 153/77 Mechanical Ventilator 45 04/28/20 18:00 28 153/77 Mechanical Ventilator 45 04/28/20 18:00 131 25 153/77 (102) 90 04/28/20 17:45 26 173/81 Mechanical Ventilator 45 04/28/20 17:30 26 180/96 Mechanical Ventilator 45 04/28/20 17:30 130 24 180/96 (124) 91 04/28/20 17:15 23 187/92 Mechanical Ventilator 45 04/28/20 17:00 99.1 101 26 200/97 (131) 91 04/28/20 17:00 23 200/97 Mechanical Ventilator 45 04/28/20 17:00 23 200/97 Mechanical Ventilator 45 04/28/20 16:56 188/90 04/28/20 16:45 21 193/103 Mechanical Ventilator 45 04/28/20 16:45 21 193/103 Mechanical Ventilator 45 04/28/20 16:30 103 25 198/100 (132) 94 04/28/20 16:30 23 198/100 Mechanical Ventilator 45 04/28/20 16:30 23 198/100 Mechanical Ventilator 45 04/28/20 16:15 25 204/85 Mechanical Ventilator 45 04/28/20 16:00 118 04/28/20 16:00 45 04/28/20 16:00 22 207/92 Mechanical Ventilator 45 04/28/20 16:00 22 207/92 Mechanical Ventilator 45 04/28/20 16:00 Mechanical Ventilator 04/28/20 16:00 98.7 118 19 207/92 (130) 85 04/28/20 15:30 99 21 187/88 (121) 93 04/28/20 15:20 69 18 45 04/28/20 15:00 21 195/109 Mechanical Ventilator 45 04/28/20 15:00 21 195/109 Mechanical Ventilator 45 04/28/20 15:00 101 18 195/109 (137) 92 04/28/20 14:00 20 189/93 Mechanical Ventilator 45 04/28/20 14:00 20 189/93 Mechanical Ventilator 45 04/28/20 14:00 71 19 189/93 (125) 95 04/28/20 13:34 63 20 97 04/28/20 13:32 63 20 97 04/28/20 13:00 19 169/96 Mechanical Ventilator 45 04/28/20 13:00 19 169/96 Mechanical Ventilator 45 04/28/20 13:00 71 18 169/96 (120) 96 04/28/20 12:01 18 118/62 Mechanical Ventilator 45 04/28/20 12:00 Mechanical Ventilator 04/28/20 12:00 98.7 58 18 118/62 (80) 94 04/28/20 12:00 18 118/62 Mechanical Ventilator 45 04/28/20 12:00 18 118/62 Mechanical Ventilator 45 04/28/20 12:00 45 04/28/20 12:00 58 04/28/20 11:00 63 18 129/64 (85) 98 04/28/20 11:00 18 129/64 Mechanical Ventilator 45 04/28/20 11:00 18 129/64 Mechanical Ventilator 45 04/28/20 10:55 61 18 45 04/28/20 10:00 18 153/88 Mechanical Ventilator 45 04/28/20 10:00 18 153/88 Mechanical Ventilator 45 04/28/20 10:00 78 18 153/88 (109) 93 I&O Intake and Output 04/28/20 04/29/20 19:00 07:00 Intake Total 1126.81 ml 1240.00 ml Output Total 1250 ml 1000 ml Balance -123.19 ml 240.00 ml Free Water 50 ml IV Total 1126.81 ml 1150.00 ml Tube Feeding 40 ml Output Urine Total 1250 ml 1000 ml Stool Total 0 ml # Bowel Movements 1 Dressing: saturated Cardiovascular: RSR Respiratory: decreased breath sounds Abdomen: soft, non-tender, present bowel sounds, decreased bowel sounds Extremities: no edema, no tenderness, no cyanosis Laboratory Tests Test 04/29/20 03:25 White Blood Count 7.3 K/UL (4.8-10.8) Red Blood Count 3.44 M/UL (4.70-6.10) L Hemoglobin 9.9 G/DL (14.2-18.0) L Hematocrit 31.4 % (42.0-52.0) L Mean Corpuscular Volume 91 FL (80-99) Mean Corpuscular Hemoglobin 28.9 PG (27.0-31.0) Mean Corpuscular Hemoglobin Concent 31.6 G/DL (32.0-36.0) L Red Cell Distribution Width 17.5 % (11.6-14.8) H Platelet Count 281 K/UL (150-450) Mean Platelet Volume 6.3 FL (6.5-10.1) L Neutrophils (%) (Auto) 84.9 % (45.0-75.0) H Lymphocytes (%) (Auto) 10.4 % (20.0-45.0) L Monocytes (%) (Auto) 4.3 % (1.0-10.0) Eosinophils (%) (Auto) 0.0 % (0.0-3.0) Basophils (%) (Auto) 0.4 % (0.0-2.0) Sodium Level 144 MMOL/L (136-145) Potassium Level 3.8 MMOL/L (3.5-5.1) Chloride Level 106 MMOL/L (98-107) Carbon Dioxide Level 30 MMOL/L (21-32) Anion Gap 8 mmol/L (5-15) Blood Urea Nitrogen 10 mg/dL (7-18) Creatinine 0.4 MG/DL (0.55-1.30) L Estimat Glomerular Filtration Rate > 60 mL/min (>60) Glucose Level 131 MG/DL (74-106) H Calcium Level 9.0 MG/DL (8.5-10.1) Plan Problems: (1) Pneumonia (2) Staphylococcus aureus bacteremia (3) COVID-19 virus infection (4) Chest pain (5) Hypertension (6) Dehydration (7) Electrolyte imbalance (8) DMII (diabetes mellitus, type 2) (9) Protein malnutrition (10) Respiratory insufficiency Assessment & Plan: 64-year-old male with respiratory insufficiency intubated in an intensive care unit. Patient has been unable to safely wean off ventilatory support. Surgery called to evaluate for tracheostomy. After careful evaluation patient is a candidate for tracheostomy. In the meantime will obtain consent. If consent obtained will proceed with scheduling. Thank you for your participation's care will follow recommendations Booker Rausch Apr 29, 2020 09:19
--- NOTE | 2020-04-29 11:08 | Pulmonology Progress Note ---
Subjective ROS Limited/Unobtainable: Yes Interval Events: S/p tracheostomy 04/25/20 Constitutional: Reports: other - sedated, + vent, no pressors, s/p trach ; Denies: fever HEENT: Repors: no symptoms Respiratory: Reports: dry cough, shortness of breath Cardiovascular: Reports: no symptoms Gastrointestinal/Abdominal: Denies: nausea, vomiting, diarrhea Psychiatric: Reports: other - NA Skin: Denies: rash Musculoskeletal: Reports: other - NA Allergies: Coded Allergies: No Known Allergies (Unverified , 02/05/20) Objective Last 24 Hour Vital Signs Date Time Temp Pulse Resp B/P (MAP) Pulse Ox O2 Delivery O2 Flow Rate FiO2 04/29/20 10:00 55 18 93/45 (61) 95 04/29/20 10:00 18 93/45 Endotracheal Tube 45 04/29/20 10:00 18 93/45 Endotracheal Tube 45 04/29/20 09:00 55 18 92/45 (61) 95 04/29/20 09:00 18 100/45 Endotracheal Tube 45 04/29/20 09:00 18 100/45 Endotracheal Tube 45 04/29/20 08:59 18 119/58 Endotracheal Tube 45 04/29/20 08:30 65 17 128/59 (82) 98 04/29/20 08:00 97.1 54 18 93/44 (60) 98 04/29/20 08:00 56 04/29/20 08:00 17 128/59 Endotracheal Tube 45 04/29/20 08:00 17 128/59 Endotracheal Tube 45 04/29/20 07:15 58 18 91/44 (60) 97 04/29/20 07:07 57 18 45 04/29/20 07:00 45 04/29/20 07:00 18 91/44 Mechanical Ventilator 50 04/29/20 07:00 18 91/44 Mechanical Ventilator 50 04/29/20 07:00 61 18 94/44 (61) 96 04/29/20 06:45 70 18 104/47 (66) 94 04/29/20 06:30 76 18 136/66 (89) 96 04/29/20 06:15 95 23 177/74 (108) 93 04/29/20 06:00 92 19 151/63 (92) 94 04/29/20 06:00 18 151/63 Mechanical Ventilator 50 04/29/20 06:00 18 151/63 Mechanical Ventilator 50 04/29/20 05:53 188/72 04/29/20 05:50 110 23 188/72 (110) 91 04/29/20 05:45 95 16 175/91 (119) 94 04/29/20 05:30 97 20 176/79 (111) 94 04/29/20 05:24 81 18 50 04/29/20 05:15 89 19 175/79 (111) 96 04/29/20 05:00 18 175/79 Mechanical Ventilator 50 04/29/20 05:00 18 175/79 Mechanical Ventilator 50 04/29/20 05:00 96 17 175/73 (107) 94 04/29/20 04:00 88 04/29/20 04:00 50 04/29/20 04:00 18 181/78 Mechanical Ventilator 50 04/29/20 04:00 18 181/78 Mechanical Ventilator 50 04/29/20 04:00 99.0 88 18 163/77 (105) 98 04/29/20 04:00 Mechanical Ventilator 04/29/20 03:55 18 157/83 Mechanical Ventilator 15.0 50 04/29/20 03:54 18 157/83 Mechanical Ventilator 50 04/29/20 03:32 18 157/83 Mechanical Ventilator 15.0 50 04/29/20 03:31 18 157/83 Mechanical Ventilator 50 04/29/20 03:11 69 18 50 04/29/20 03:00 18 157/83 Mechanical Ventilator 50 04/29/20 03:00 18 157/83 Mechanical Ventilator 50 04/29/20 03:00 62 18 157/83 (107) 100 04/29/20 02:00 60 18 103/60 (74) 100 04/29/20 02:00 18 103/60 Mechanical Ventilator 50 04/29/20 02:00 18 103/60 Mechanical Ventilator 50 04/29/20 01:07 65 18 50 04/29/20 01:00 70 18 133/80 (97) 99 04/29/20 01:00 18 133/80 Mechanical Ventilator 50 04/29/20 01:00 18 133/80 Mechanical Ventilator 50 04/29/20 00:00 69 04/29/20 00:00 50 04/29/20 00:00 Mechanical Ventilator 04/29/20 00:00 18 110/56 Mechanical Ventilator 50 04/29/20 00:00 18 110/56 Mechanical Ventilator 50 04/29/20 00:00 99.0 69 18 110/56 (74) 99 04/28/20 23:09 85 18 50 04/28/20 23:00 88 18 135/63 (87) 97 04/28/20 23:00 18 131/63 Mechanical Ventilator 50 04/28/20 23:00 18 135/63 Mechanical Ventilator 50 04/28/20 22:45 101 20 145/74 (97) 97 04/28/20 22:30 103 21 142/69 (93) 97 04/28/20 22:15 102 21 151/67 (95) 96 04/28/20 22:00 21 151/67 Mechanical Ventilator 50 04/28/20 22:00 19 136/67 Mechanical Ventilator 15.0 50 04/28/20 22:00 101 19 118/57 (77) 96 04/28/20 21:19 99.9 04/28/20 21:18 50 04/28/20 21:14 110 19 50 04/28/20 21:00 21 136/67 Mechanical Ventilator 50 04/28/20 21:00 21 136/67 Mechanical Ventilator 50 04/28/20 21:00 140 22 123/66 (85) 89 04/28/20 20:49 180/90 04/28/20 20:45 130 26 179/86 (117) 96 04/28/20 20:45 23 179/86 Mechanical Ventilator 50 04/28/20 20:45 23 179/86 Mechanical Ventilator 50 04/28/20 20:30 24 180/82 Mechanical Ventilator 50 04/28/20 20:30 24 180/82 Mechanical Ventilator 50 04/28/20 20:30 126 23 180/82 (114) 91 04/28/20 20:15 114 21 163/81 (108) 94 04/28/20 20:15 24 163/81 Mechanical Ventilator 45 04/28/20 20:15 24 163/81 Mechanical Ventilator 45 04/28/20 20:00 114 04/28/20 20:00 22 151/73 Mechanical Ventilator 45 04/28/20 20:00 22 151/73 Mechanical Ventilator 45 04/28/20 20:00 Mechanical Ventilator 04/28/20 20:00 100.0 110 22 151/73 (99) 94 04/28/20 20:00 45 04/28/20 19:45 113 23 154/80 (104) 94 04/28/20 19:34 114 19 45 04/28/20 19:30 115 26 167/71 (103) 94 04/28/20 19:15 119 21 168/78 (108) 93 04/28/20 19:00 117 24 149/72 (97) 93 04/28/20 19:00 24 161/77 Mechanical Ventilator 45 04/28/20 19:00 24 161/77 Mechanical Ventilator 45 04/28/20 18:15 24 143/78 Mechanical Ventilator 45 04/28/20 18:15 24 143/78 Mechanical Ventilator 45 04/28/20 18:00 28 153/77 Mechanical Ventilator 45 04/28/20 18:00 28 153/77 Mechanical Ventilator 45 04/28/20 18:00 131 25 153/77 (102) 90 04/28/20 17:45 26 173/81 Mechanical Ventilator 45 04/28/20 17:30 26 180/96 Mechanical Ventilator 45 04/28/20 17:30 130 24 180/96 (124) 91 04/28/20 17:15 23 187/92 Mechanical Ventilator 45 04/28/20 17:00 99.1 101 26 200/97 (131) 91 04/28/20 17:00 23 200/97 Mechanical Ventilator 45 04/28/20 17:00 23 200/97 Mechanical Ventilator 45 04/28/20 16:56 188/90 04/28/20 16:45 21 193/103 Mechanical Ventilator 45 04/28/20 16:45 21 193/103 Mechanical Ventilator 45 04/28/20 16:30 103 25 198/100 (132) 94 04/28/20 16:30 23 198/100 Mechanical Ventilator 45 04/28/20 16:30 23 198/100 Mechanical Ventilator 45 04/28/20 16:15 25 204/85 Mechanical Ventilator 45 04/28/20 16:00 118 04/28/20 16:00 45 04/28/20 16:00 22 207/92 Mechanical Ventilator 45 04/28/20 16:00 22 207/92 Mechanical Ventilator 45 04/28/20 16:00 Mechanical Ventilator 04/28/20 16:00 98.7 118 19 207/92 (130) 85 04/28/20 15:30 99 21 187/88 (121) 93 04/28/20 15:20 69 18 45 04/28/20 15:00 21 195/109 Mechanical Ventilator 45 04/28/20 15:00 21 195/109 Mechanical Ventilator 45 04/28/20 15:00 101 18 195/109 (137) 92 04/28/20 14:00 20 189/93 Mechanical Ventilator 45 04/28/20 14:00 20 189/93 Mechanical Ventilator 45 04/28/20 14:00 71 19 189/93 (125) 95 04/28/20 13:34 63 20 97 04/28/20 13:32 63 20 97 04/28/20 13:00 19 169/96 Mechanical Ventilator 45 04/28/20 13:00 19 169/96 Mechanical Ventilator 45 04/28/20 13:00 71 18 169/96 (120) 96 04/28/20 12:01 18 118/62 Mechanical Ventilator 45 04/28/20 12:00 Mechanical Ventilator 04/28/20 12:00 98.7 58 18 118/62 (80) 94 04/28/20 12:00 18 118/62 Mechanical Ventilator 45 04/28/20 12:00 18 118/62 Mechanical Ventilator 45 04/28/20 12:00 45 04/28/20 12:00 58 Intake and Output 04/28/20 04/29/20 19:00 07:00 Intake Total 1126.81 ml 1240.00 ml Output Total 1250 ml 1000 ml Balance -123.19 ml 240.00 ml Free Water 50 ml IV Total 1126.81 ml 1150.00 ml Tube Feeding 40 ml Output Urine Total 1250 ml 1000 ml Stool Total 0 ml # Bowel Movements 1 General Appearance: WD/WN, no acute distress HEENT: normocephalic, atraumatic, status post trach Respiratory: chest wall non-tender Cardiovascular: normal rate, regular rhythm Abdomen: normal bowel sounds, soft, non tender, other - obese Laboratory Tests 04/29/20 03:25: White Blood Count 7.3, Red Blood Count 3.44L, Hemoglobin 9.9L, Hematocrit 31.4L, Mean Corpuscular Volume 91, Mean Corpuscular Hemoglobin 28.9, Mean Corpuscular Hemoglobin Concent 31.6L, Red Cell Distribution Width 17.5H, Platelet Count 281, Mean Platelet Volume 6.3L, Neutrophils (%) (Auto) 84.9H, Lymphocytes (%) (Auto) 10.4L, Monocytes (%) (Auto) 4.3, Eosinophils (%) (Auto) 0.0, Basophils (%) (Auto) 0.4, Sodium Level 144, Potassium Level 3.8, Chloride Level 106, Carbon Dioxide Level 30, Anion Gap 8, Blood Urea Nitrogen 10, Creatinine 0.4L, Estimat Glomerular Filtration Rate > 60, Glucose Level 131H, Calcium Level 9.0 Current Medications Medications (Trade) Dose Ordered Sig/Dennis Route PRN Reason Start Time Stop Time Status Last Admin Dose Admin Acetaminophen (Tylenol) 650 mg Q4H PRN ORAL Temp >100.5 04/13/20 00:30 05/13/20 00:29 04/28/20 20:49 Amlodipine Besylate (Norvasc) 2.5 mg BID PRN ORAL sbp greater than 165 04/27/20 20:00 05/27/20 19:59 Bisacodyl (Dulcolax) 10 mg Q12H PRN RECTAL Constipation 03/18/20 16:45 06/16/20 16:44 Chlorhexidine Gluconate (Marlen-Hex 2%) 1 applic DAILY@2000 TOPIC 03/30/20 20:00 06/28/20 19:59 04/28/20 20:02 Dextrose 1,000 ml @ 30 mls/hr Q24H IV 04/28/20 13:30 05/28/20 13:29 04/28/20 13:34 Dextrose (Dextrose 50%) 25 ml Q30M PRN IV Hypoglycemia 03/29/20 20:45 06/27/20 20:44 Dextrose (Dextrose 50%) 50 ml Q30M PRN IV Hypoglycemia 03/29/20 20:45 06/27/20 20:44 Enoxaparin Sodium (Lovenox) 80 mg EVERY 12 HOURS SUBQ 04/06/20 21:00 07/05/20 20:59 04/29/20 08:56 Fentanyl Citrate 250 ml @ 1 mls/hr Q24H IV 04/27/20 22:00 04/29/20 21:59 04/29/20 03:55 Hydralazine HCl (Apresoline) 10 mg Q4H PRN IV For High Blood Pressure 03/30/20 12:15 06/28/20 12:14 04/29/20 05:53 Insulin Aspart (NovoLOG) Q6HR SUBQ 03/30/20 00:00 06/28/20 00:00 04/28/20 17:48 Lansoprazole (Prevacid) 15 mg Q12HR GT 04/20/20 21:00 05/20/20 20:59 04/29/20 08:54 Methylprednisolone Sodium Succinate (Solu-MEDROL) 20 mg Q12HR IVP 04/12/20 21:00 06/20/20 20:59 04/29/20 08:54 Metoclopramide HCl (Reglan) 10 mg Q6H IVP 03/30/20 15:00 04/29/20 14:59 04/29/20 08:54 Midazolam HCl 200 ml @ 0 mls/hr Q24H PRN IV SEDATION 04/25/20 01:00 05/02/20 00:29 04/29/20 08:59 Quetiapine Fumarate (SEROqueL) 50 mg Q12HR ORAL 04/27/20 21:00 06/11/20 20:59 04/29/20 08:54 Trimethoprim/ Sulfamethoxazole (Bactrim-DS) 1 tab DAILY ORAL 04/23/20 20:00 05/23/20 19:59 04/29/20 08:54 Assessment/Plan Assessment/Plan Assessment/Plan 1.COVID-19 pneumonia. - Completed specific therapies - On solumedrol 20 Iv q 12 - will add bactrim for PJP prophylaxis 2. DVT ppx - on lovenox 3. Hypertension - no longer on meds - Not requiring pressors 4. Leukocytosis; - ID following - Off abx - Candidemia documented 03/18/20 5. Elevated LFT - positive Hep C; treated in the past with IF 6. Respiratory failure -Intubated 03/28/20; s/p tracheostomy 04/25/20 -Family aware - Prognosis guarded - Vt 750; rate 18 -On sedation; will wean off; increased Seroquel to 50 TID 7. Discussed with cardiology -No evidence for cardiac dysfunction or PE 8. AMS -back on sedation S/p new PICC line Noted left upper extremity swelling. Has DVT; on full dose Lovenox Decrease sedation, DC propofol given high triglycerides. Will wean down FiO2 as tolerated CXR shows bilateral interstitial changes? fibrosis? S/p PEG Will dc IV fluids Increase tube feedings Dc planning to subacute John Mata MD Apr 29, 2020 11:08
--- NOTE | 2020-04-29 13:33 | Nephrology Progress Note ---
Assessment/Plan Problem List: (1) Dehydration (2) Electrolyte imbalance (3) COVID-19 virus infection (4) Pneumonia (5) DMII (diabetes mellitus, type 2) (6) Protein malnutrition Assessment Azotemia, hypernatremia Hypoalbuminemia Staff Otilia bacteremia COVID-19 isolation, pneumonia, bilateral infiltrate Hypertension Diabetes mellitus History of smoking Plan April 29: Status quo. Received PEG yesterday. Has trach connected to vent. FiO2 40%. Labs reviewed. Medication list reviewed. Continue same April 28: Status quo. Labs reviewed. Renal parameters stable. Patient n.p.o. due for PEG insertion. IV changed to D5 normal saline. Continue per consultants. April 27: Status quo. Labs reviewed. Medication list reviewed. Stable from renal standpoint of view. Abnormal electrolytes addressed. April 26: Patient is now trached and connected to vent. FiO2 70%. Labs reviewed. Renal parameters stable. Medication list reviewed. Continue per consultants. April 25: Status quo. Full code. FiO2 55%. No labs drawn today. Continue to monitor electrolytes and renal parameters. Continue per consultants. April 24: Status quo. Full code. Intubated on ventilator. FiO2 65%. Labs reviewed. Renal parameters and electrolytes stable. April 23: Status unchanged. Full code. Intubated on ventilator. FiO2 75%. Labs reviewed. Renal parameters stable. Continue per consultants. April 22: Labs reviewed. Patient remains intubated on ventilator and full code. FiO2 90%. Day 77 hospitalization. Not much to add from renal standpoint of view April 21: No CHEM panel drawn today. FiO2 60%. Patient full code. Continue per consultants. April 20: Labs reviewed. Renal parameters stable. Patient remains full code. Intubated on ventilator with FiO2 currently at 70%. Continue per consultants. April 19: No labs drawn today. Remains full code on FiO2 of 100%. Continue per consultants. April 18: Status quo. Labs reviewed. Renal parameters stable. April 17: Status quo. Intubated on ventilator. Full code. Labs reviewed. Electrolytes and renal parameters stable. Continue per consultants. April 16: Girlfriend in the room. Patient awake. Intubated. Full code. Labs reviewed. Abnormal electrolyte addressed. Continue per consultants. April 15: Labs reviewed. Electrolytes and renal parameters stable. Patient full code. Continues to be intubated on ventilator. April 14: Status quo. Labs reviewed. Remains intubated on ventilator. Full code. Continue per consultants. April 13: Status quo. Labs reviewed. Renal parameters electrolytes stable. Continue per current treatment plan. April 12: On higher FiO2. Will resume Lasix daily. Continue to monitor electrolytes and renal parameters. Per consultants. April 11: FiO2 went up to 85%. Renal parameters and electrolytes reasonably well-maintained. Will monitor serum potassium. Will give IV Lasix. April 10: Status quo. Labs reviewed. Remains intubated on ventilator with FiO2 of 65%. Remains full code. Stable from renal standpoint to view. Repeat vitamin D level on April 08 pending April 09: Status quo. Labs reviewed. Stable from renal standpoint of view. Continue per consultants. April 08: Discussed with RN. Labs reviewed. Clinically improving. Requires lower PEEP. Continue per pulmonary. Continue to monitor renal parameters. April 07: Remains full code and on ventilator. Labs reviewed. Renal parameters and electrolytes stable. Continue per consultants. Blood pressure marginally improved. April 06: Full code. On ventilator. Blood pressure 80-90 systolic. IV Lasix discontinued. Free water through tube feeding ordered. Continue to monitor electrolytes and serum sodium. Down on fentanyl as possible. Discussed with RN Kevin. Clonidine patch discontinued. April 05: Status quo. Remains full code. Remains intubated. Labs reviewed. Renal parameters stable. Serum sodium 150 unchanged. Continue per consultants. April 04: Remains intubated and on ventilator. Remains full code. Labs reviewed. Serum sodium 150 unchanged. Renal parameters stable. Continue per ID and pulmonary. April 03: Intubated. On ventilator. Full code. Labs reviewed. Serum sodium 150 unchanged. Continue to monitor renal parameters. Continue per pulmonary and ID. April 02: Full code. On ventilator. Discussed with RN. Serum sodium slightly higher. Will cut down on IV Lasix. Continue per consultants. Continue to monitor renal parameters and electrolytes. April 01: Full code. Remains on ventilator. Labs reviewed. Stable from renal standpoint of view. Continue per consultants. March 31: Full code . Remains intubated on ventilator. Labs reviewed. Patient appears toxic. Discussed with RN. Maintenance IV discontinued. Medication list reviewed. Blood pressure medication stopped due to low blood pressure. Levemir insulin stopped. Continue monitor blood sugar and sliding scale insulin. March 30: Full code. On ventilator. Labs reviewed. Clonidine patch dose increased. Lasix increased. 3% saline 1 time ordered. Continue to monitor electrolytes and renal parameters. March 29: Remains full code. On mechanical ventilation. On tube feeding. Will DC TPN. Will start on maintenance IV fluid. Continue to monitor renal parameters. March 28: On BiPAP. Full code. On TPN. Labs reviewed. Discussed with pharmacy. Continue as is. Watch serum potassium. March 27: Remains on BiPAP. No chemistry panel done today. Full code. On TPN. Will check lab tomorrow. March 26: Remains on BiPAP. Remains on TPN. Labs reviewed. Electrolytes and chemistries within normal limits. Continue as is. March 25: Remains on TPN. Labs reviewed. Discussed with pharmacy. Change IV Protonix to p.o. Continue 3% saline infusion with Lasix. Patient full code. March 24: Continue to be on TPN. Labs are reviewed. Aim to collect electrolytes. Discussed with pharmacy. Continue current consultants. March 23: Continues to be on TPN. Labs reviewed. Electrolytes and chemistries all acceptable. Discussed with pharmacy. Continue current management. March 22: On TPN. Labs reviewed. Low sodium noted. 3% saline to be continued. Continue to monitor electrolytes. Discussed with pharmacy. March 21: On TPN. Labs reviewed. Continue 3% saline and Lasix for mild hyponatremia. Continue TPN as these. Discussed with pharmacy. March 20: Remains on TPN. Labs reviewed. Serum sodium higher on IV Lasix and 3% saline infusion. Continue TPN as is. Continue to monitor renal parameters and electrolytes. Discussed with Dr. Mata March 19: Remains on TPN. Labs reviewed. Serum sodium 128. Will give 3% saline with IV Lasix. Continue to monitor electrolytes. No change in TPN composition. Discussed with pharmacy. March 18: Remains on TPN. Labs reviewed. Discussed with pharmacist. Will give 3 doses of IV Lasix 20 mg every 8 hours. Continue to monitor serum sodium electrolytes uric acid. White blood cells down. Continue per consultants. March 17: On TPN. Labs reviewed. Discussed with pharmacist. Sodium content increase. Continue to monitor CMP. Patient continues to have leukocytosis. March 16: On TPN. Labs reviewed. Discussed with pharmacist. Appropriate changes made. Continue to monitor electrolytes. March 15: Remains on TPN. Labs reviewed. Discussed with pharmacist. Continue per current management. March 14: Remains on TPN. Labs reviewed, stable. Vitamin D level low, replacement ordered. Continue to monitor electrolytes and renal parameters. March 13: Patient remains on TPN. Discussed with pharmacist. TPN's sodium content adjusted. Labs reviewed. Continue to monitor electrolytes. Blood pressure remains stable. Continue per consultants. March 12: Patient on TPN. Labs reviewed. CPK remains elevated. Abnormal electrolytes and high blood sugar discussed with pharmacist and TPN adjusted. Continue to monitor labs. Oral Protonix added. Ibuprofen discontinued. Can continue to monitor electrolytes and chemistries. Levemir for high blood sugar added. March 11: Patient on TPN. Labs as of 11:15 AM is still pending. Continue per current treatment plan. Will check labs and adjust TPN as needed. Continue per consultants. March 10: Patient on TPN. Labs reviewed. Electrolytes overall stable. CPK is elevated. Will monitor electrolyte, CPK level, lipid panel. Continue per co nsultants. Discussed with pharmacist. Discussed with RN. Nutritional evaluation noted. Previously: D5W 100 cc an hour Monitor electrolytes renal parameters TPN and Intralipid ordered Will follow Continue per consultants Dietary consult requested Subjective ROS Limited/Unobtainable: Yes Objective Objective Last 24 Hour Vital Signs Date Time Temp Pulse Resp B/P (MAP) Pulse Ox O2 Delivery O2 Flow Rate FiO2 04/29/20 13:00 62 18 100/39 (59) 90 04/29/20 12:30 59 18 106/48 (67) 91 04/29/20 12:00 97.7 61 17 130/55 (80) 93 04/29/20 11:29 58 18 40 04/29/20 11:00 18 88/44 Endotracheal Tube 40 04/29/20 11:00 18 89/44 Endotracheal Tube 40 04/29/20 11:00 59 18 102/49 (66) 94 04/29/20 10:00 55 18 93/45 (61) 95 04/29/20 10:00 18 93/45 Endotracheal Tube 45 04/29/20 10:00 18 93/45 Endotracheal Tube 45 04/29/20 09:10 53 18 40 04/29/20 09:00 55 18 92/45 (61) 95 04/29/20 09:00 18 100/45 Endotracheal Tube 45 04/29/20 09:00 18 100/45 Endotracheal Tube 45 04/29/20 08:59 18 119/58 Endotracheal Tube 45 04/29/20 08:30 65 17 128/59 (82) 98 04/29/20 08:00 97.1 54 18 93/44 (60) 98 04/29/20 08:00 56 04/29/20 08:00 17 128/59 Endotracheal Tube 45 04/29/20 08:00 17 128/59 Endotracheal Tube 45 04/29/20 07:15 58 18 91/44 (60) 97 04/29/20 07:07 57 18 45 04/29/20 07:00 45 04/29/20 07:00 18 91/44 Mechanical Ventilator 50 04/29/20 07:00 18 91/44 Mechanical Ventilator 50 04/29/20 07:00 61 18 94/44 (61) 96 04/29/20 06:45 70 18 104/47 (66) 94 04/29/20 06:30 76 18 136/66 (89) 96 04/29/20 06:15 95 23 177/74 (108) 93 04/29/20 06:00 92 19 151/63 (92) 94 04/29/20 06:00 18 151/63 Mechanical Ventilator 50 04/29/20 06:00 18 151/63 Mechanical Ventilator 50 04/29/20 05:53 188/72 04/29/20 05:50 110 23 188/72 (110) 91 04/29/20 05:45 95 16 175/91 (119) 94 04/29/20 05:30 97 20 176/79 (111) 94 04/29/20 05:24 81 18 50 04/29/20 05:15 89 19 175/79 (111) 96 04/29/20 05:00 18 175/79 Mechanical Ventilator 50 04/29/20 05:00 18 175/79 Mechanical Ventilator 50 04/29/20 05:00 96 17 175/73 (107) 94 04/29/20 04:00 88 04/29/20 04:00 50 04/29/20 04:00 18 181/78 Mechanical Ventilator 50 04/29/20 04:00 18 181/78 Mechanical Ventilator 50 04/29/20 04:00 99.0 88 18 163/77 (105) 98 04/29/20 04:00 Mechanical Ventilator 04/29/20 03:55 18 157/83 Mechanical Ventilator 15.0 50 04/29/20 03:54 18 157/83 Mechanical Ventilator 50 04/29/20 03:32 18 157/83 Mechanical Ventilator 15.0 50 04/29/20 03:31 18 157/83 Mechanical Ventilator 50 04/29/20 03:11 69 18 50 04/29/20 03:00 18 157/83 Mechanical Ventilator 50 04/29/20 03:00 18 157/83 Mechanical Ventilator 50 04/29/20 03:00 62 18 157/83 (107) 100 04/29/20 02:00 60 18 103/60 (74) 100 04/29/20 02:00 18 103/60 Mechanical Ventilator 50 04/29/20 02:00 18 103/60 Mechanical Ventilator 50 04/29/20 01:07 65 18 50 04/29/20 01:00 70 18 133/80 (97) 99 04/29/20 01:00 18 133/80 Mechanical Ventilator 50 04/29/20 01:00 18 133/80 Mechanical Ventilator 50 04/29/20 00:00 69 04/29/20 00:00 50 04/29/20 00:00 Mechanical Ventilator 04/29/20 00:00 18 110/56 Mechanical Ventilator 50 04/29/20 00:00 18 110/56 Mechanical Ventilator 50 04/29/20 00:00 99.0 69 18 110/56 (74) 99 04/28/20 23:09 85 18 50 04/28/20 23:00 88 18 135/63 (87) 97 04/28/20 23:00 18 131/63 Mechanical Ventilator 50 04/28/20 23:00 18 135/63 Mechanical Ventilator 50 04/28/20 22:45 101 20 145/74 (97) 97 04/28/20 22:30 103 21 142/69 (93) 97 04/28/20 22:15 102 21 151/67 (95) 96 04/28/20 22:00 21 151/67 Mechanical Ventilator 50 04/28/20 22:00 19 136/67 Mechanical Ventilator 15.0 50 04/28/20 22:00 101 19 118/57 (77) 96 04/28/20 21:19 99.9 04/28/20 21:18 50 04/28/20 21:14 110 19 50 04/28/20 21:00 21 136/67 Mechanical Ventilator 50 04/28/20 21:00 21 136/67 Mechanical Ventilator 50 04/28/20 21:00 140 22 123/66 (85) 89 04/28/20 20:49 180/90 04/28/20 20:45 130 26 179/86 (117) 96 04/28/20 20:45 23 179/86 Mechanical Ventilator 50 04/28/20 20:45 23 179/86 Mechanical Ventilator 50 04/28/20 20:30 24 180/82 Mechanical Ventilator 50 04/28/20 20:30 24 180/82 Mechanical Ventilator 50 04/28/20 20:30 126 23 180/82 (114) 91 04/28/20 20:15 114 21 163/81 (108) 94 04/28/20 20:15 24 163/81 Mechanical Ventilator 45 04/28/20 20:15 24 163/81 Mechanical Ventilator 45 04/28/20 20:00 114 04/28/20 20:00 22 151/73 Mechanical Ventilator 45 04/28/20 20:00 22 151/73 Mechanical Ventilator 45 04/28/20 20:00 Mechanical Ventilator 04/28/20 20:00 100.0 110 22 151/73 (99) 94 04/28/20 20:00 45 04/28/20 19:45 113 23 154/80 (104) 94 04/28/20 19:34 114 19 45 04/28/20 19:30 115 26 167/71 (103) 94 04/28/20 19:15 119 21 168/78 (108) 93 04/28/20 19:00 117 24 149/72 (97) 93 04/28/20 19:00 24 161/77 Mechanical Ventilator 45 04/28/20 19:00 24 161/77 Mechanical Ventilator 45 04/28/20 18:15 24 143/78 Mechanical Ventilator 45 04/28/20 18:15 24 143/78 Mechanical Ventilator 45 04/28/20 18:00 28 153/77 Mechanical Ventilator 45 04/28/20 18:00 28 153/77 Mechanical Ventilator 45 04/28/20 18:00 131 25 153/77 (102) 90 04/28/20 17:45 26 173/81 Mechanical Ventilator 45 04/28/20 17:30 26 180/96 Mechanical Ventilator 45 04/28/20 17:30 130 24 180/96 (124) 91 04/28/20 17:15 23 187/92 Mechanical Ventilator 45 04/28/20 17:00 99.1 101 26 200/97 (131) 91 04/28/20 17:00 23 200/97 Mechanical Ventilator 45 04/28/20 17:00 23 200/97 Mechanical Ventilator 45 04/28/20 16:56 188/90 04/28/20 16:45 21 193/103 Mechanical Ventilator 45 04/28/20 16:45 21 193/103 Mechanical Ventilator 45 04/28/20 16:30 103 25 198/100 (132) 94 04/28/20 16:30 23 198/100 Mechanical Ventilator 45 04/28/20 16:30 23 198/100 Mechanical Ventilator 45 04/28/20 16:15 25 204/85 Mechanical Ventilator 45 04/28/20 16:00 118 04/28/20 16:00 45 04/28/20 16:00 22 207/92 Mechanical Ventilator 45 04/28/20 16:00 22 207/ Mechanical Ventilator 45 04/28/20 16:00 Mechanical Ventilator 04/28/20 16:00 98.7 118 19 207/92 (130) 85 04/28/20 15:30 99 21 187/88 (121) 93 04/28/20 15:20 69 18 45 04/28/20 15:00 21 195/109 Mechanical Ventilator 45 04/28/20 15:00 21 195/109 Mechanical Ventilator 45 04/28/20 15:00 101 18 195/109 (137) 92 04/28/20 14:00 20 189 Mechanical Ventilator 45 04/28/20 14:00 20 189/93 Mechanical Ventilator 45 04/28/20 14:00 71 19 189/93 (125) 95 04/28/20 13:34 63 20 97 04/28/20 13:32 63 20 97 Intake and Output 04/28/20 04/29/20 19:00 07:00 Intake Total 1126.81 ml 1240.00 ml Output Total 1250 ml 1000 ml Balance -123.19 ml 240.00 ml Free Water 50 ml IV Total 1126.81 ml 1150.00 ml Tube Feeding 40 ml Output Urine Total 1250 ml 1000 ml Stool Total 0 ml # Bowel Movements 1 Current Medications Medications (Trade) Dose Ordered Sig/Dennis Route PRN Reason Start Time Stop Time Status Last Admin Dose Admin Acetaminophen (Tylenol) 650 mg Q4H PRN ORAL Temp >100.5 04/13/20 00:30 05/13/20 00:29 04/28/20 20:49 Chlorhexidine Gluconate (Marlen-Hex 2%) 1 applic DAILY@2000 TOPIC 03/30/20 20:00 06/28/20 19:59 04/28/20 20:02 Dextrose (Dextrose 50%) 25 ml Q30M PRN IV Hypoglycemia 03/29/20 20:45 06/27/20 20:44 Dextrose (Dextrose 50%) 50 ml Q30M PRN IV Hypoglycemia 03/29/20 20:45 06/27/20 20:44 Enoxaparin Sodium (Lovenox) 80 mg EVERY 12 HOURS SUBQ 04/06/20 21:00 07/05/20 20:59 04/29/20 08:56 Fentanyl Citrate 250 ml @ 1 mls/hr Q24H IV 04/27/20 22:00 04/29/20 21:59 04/29/20 03:55 Hydralazine HCl (Apresoline) 10 mg Q4H PRN IV For High Blood Pressure 03/30/20 12:15 06/28/20 12:14 04/29/20 05:53 Insulin Aspart (NovoLOG) Q6HR SUBQ 03/30/20 00:00 06/28/20 00:00 04/28/20 17:48 Lansoprazole (Prevacid) 15 mg Q12HR GT 04/20/20 21:00 05/20/20 20:59 04/29/20 08:54 Methylprednisolone Sodium Succinate (Solu-MEDROL) 20 mg Q12HR IVP 04/12/20 21:00 06/20/20 20:59 04/29/20 08:54 Metoclopramide HCl (Reglan) 10 mg Q6H IVP 03/30/20 15:00 04/29/20 14:59 04/29/20 08:54 Midazolam HCl 200 ml @ 0 mls/hr Q24H PRN IV SEDATION 04/25/20 01:00 05/02/20 00:29 04/29/20 08:59 Quetiapine Fumarate (SEROqueL) 50 mg EVERY 8 HOURS ORAL 04/29/20 12:00 06/11/20 11:59 04/29/20 12:53 Trimethoprim/ Sulfamethoxazole (Bactrim-DS) 1 tab DAILY ORAL 04/30/20 09:00 05/07/20 08:59 Laboratory Tests 04/29/20 03:25: White Blood Count 7.3, Red Blood Count 3.44L, Hemoglobin 9.9L, Hematocrit 31.4L, Mean Corpuscular Volume 91, Mean Corpuscular Hemoglobin 28.9, Mean Corpuscular Hemoglobin Concent 31.6L, Red Cell Distribution Width 17.5H, Platelet Count 281, Mean Platelet Volume 6.3L, Neutrophils (%) (Auto) 84.9H, Lymphocytes (%) (Auto) 10.4L, Monocytes (%) (Auto) 4.3, Eosinophils (%) (Auto) 0.0, Basophils (%) (Auto) 0.4, Sodium Level 144, Potassium Level 3.8, Chloride Level 106, Carbon Dioxide Level 30, Anion Gap 8, Blood Urea Nitrogen 10, Creatinine 0.4L, Estimat Glomerular Filtration Rate > 60, Glucose Level 131H, Calcium Level 9.0 Height (Feet): 5 Height (Inches): 10.00 Weight (Pounds): 243 General Appearance: no apparent distress EENT: other - Trach to vent Respiratory/Chest: decreased breath sounds Abdomen: other - Now has Rubin Inman MD Apr 29, 2020 13:33
--- NOTE | 2020-04-29 14:48 | NUR ---
CASE MANAGEMENT:REVIEW 04/29/20 SI: COVID PNA~ INTUBATED 97.7 58 17 130/55 93% ON VENT SUPPORT W/40% FIO2 H/H-9.9/31.4 IS:FENTANYL GTT VERSED GTT IV SOLUMEDROL Q12 IV REGLAN Q6HRS LOVENOX SQ Q12 : ICU STATUS
--- NOTE | 2020-04-29 17:40 | Infectious Diseases Prog Note ---
Assessment/Plan Assessment/Plan ASSESSMENT AND PLAN: 1. staph aureus bacteremia/mssa, ? source, ? endocarditis, sepsis, leukocytosis covid-19 +, hypoxia, sob, chest x-ray worse, ? PE, ? HCAP/aspiration pna leukocytosis noted - ? new infection, ? steroids cocci serology negative, legionella negative, beta 1,3 D-glucan wnl, Il-16 - 13.7 elevated LFT's - ? TPN, ? Bactrim - US without gallbladder disease, + steatosis - d/w GI - TPN more likely than bactrim as etiology e.coli uti - s/p treatment with rocephin, s/p treatment for presumptive pneumocystis pna + yeast in blood, fungemia, ? line infection, line changed worsening respiratory status, ? new aspiration pna/hcap, ? sepsis ? fungal/cynthia uti vs colonization - s/p tx - s/p zosyn and vancomycin - s/p micafungin -(post negative blood cultures - 04/02/20) - on solumedrol - picc line changed - bactrim for pneumocystis prophylaxis, s/p pneumocystis treatment - s/p tx for mssa bacteremia and ? endocarditis - monitor hypoxia, labs and chest x-ray - s/p trach - c.diff. negative - check labs, ua and cultures for low grade fevers 2. covid-19 isolation 3. Hypertension history. Blood pressure treatment primary care team. 4. Elevated blood sugars. Blood sugar treatment per primary care team. 5. No known drug allergies. 6. Social history is positive for smoking. 7. Family history is noncontributory. 8. MAR was noted. 9. Case was discussed with RN. 10. Continue treatment per primary consultants. Subjective Constitutional: Reports: fever - lgt x 1, fatigue, other - + trach and vent HEENT: Reports: congestion Respiratory: Reports: shortness of breath Cardiovascular: Reports: other - no pressors Gastrointestinal/Abdominal: Denies: nausea, vomiting Genitourinary: Reports: other - + joseph Psychiatric: Reports: other - NA Skin: Denies: rash Hematologic: Denies: bleeding Musculoskeletal: Reports: other - NA Allergies: Coded Allergies: No Known Allergies (Unverified , 02/05/20) Objective Last 24 Hour Vital Signs Date Time Temp Pulse Resp B/P (MAP) Pulse Ox O2 Delivery O2 Flow Rate FiO2 04/29/20 17:21 88 19 40 04/29/20 17:13 23 140/64 Endotracheal Tube 40 04/29/20 16:00 40 04/29/20 16:00 53 18 97/46 (63) 94 04/29/20 16:00 Mechanical Ventilator 04/29/20 16:00 53 04/29/20 15:00 54 18 93/42 (59) 94 04/29/20 14:41 54 18 40 04/29/20 14:00 57 18 89/44 (59) 94 04/29/20 14:00 18 89/44 Endotracheal Tube 40 04/29/20 14:00 18 89/44 Endotracheal Tube 40 04/29/20 13:53 18 106/48 Endotracheal Tube 40 04/29/20 13:10 56 18 40 04/29/20 13:00 62 18 100/39 (59) 90 04/29/20 13:00 18 106/48 Endotracheal Tube 40 04/29/20 13:00 18 106/48 Endotracheal Tube 40 04/29/20 12:30 59 18 106/48 (67) 91 04/29/20 12:00 58 04/29/20 12:00 Mechanical Ventilator 04/29/20 12:00 17 130/55 Endotracheal Tube 40 04/29/20 12:00 17 130/55 Endotracheal Tube 40 04/29/20 12:00 97.7 61 17 130/55 (80) 93 04/29/20 12:00 40 04/29/20 11:29 58 18 40 04/29/20 11:00 18 88/44 Endotracheal Tube 40 04/29/20 11:00 18 89/44 Endotracheal Tube 40 04/29/20 11:00 59 18 102/49 (66) 94 04/29/20 10:00 55 18 93/45 (61) 95 04/29/20 10:00 18 93/45 Endotracheal Tube 45 04/29/20 10:00 18 93/45 Endotracheal Tube 45 04/29/20 09:10 53 18 40 04/29/20 09:00 55 18 92/45 (61) 95 04/29/20 09:00 18 100/45 Endotracheal Tube 45 04/29/20 09:00 18 100/45 Endotracheal Tube 45 04/29/20 08:59 18 119/58 Endotracheal Tube 45 04/29/20 08:30 65 17 128/59 (82) 98 04/29/20 08:00 97.1 54 18 93/44 (60) 98 04/29/20 08:00 56 04/29/20 08:00 17 128/59 Endotracheal Tube 45 04/29/20 08:00 17 128/59 Endotracheal Tube 45 04/29/20 08:00 Mechanical Ventilator 04/29/20 07:15 58 18 91/44 (60) 97 04/29/20 07:07 57 18 45 04/29/20 07:00 45 04/29/20 07:00 18 91/44 Mechanical Ventilator 50 04/29/20 07:00 18 91/44 Mechanical Ventilator 50 04/29/20 07:00 61 18 94/44 (61) 96 04/29/20 06:45 70 18 104/47 (66) 94 04/29/20 06:30 76 18 136/66 (89) 96 04/29/20 06:15 95 23 177/74 (108) 93 04/29/20 06:00 92 19 151/63 (92) 94 04/29/20 06:00 18 151/63 Mechanical Ventilator 50 04/29/20 06:00 18 151/63 Mechanical Ventilator 50 04/29/20 05:53 188/72 04/29/20 05:50 110 23 188/72 (110) 91 04/29/20 05:45 95 16 175/91 (119) 94 04/29/20 05:30 97 20 176/79 (111) 94 04/29/20 05:24 81 18 50 04/29/20 05:15 89 19 175/79 (111) 96 04/29/20 05:00 18 175/79 Mechanical Ventilator 50 04/29/20 05:00 18 175/79 Mechanical Ventilator 50 04/29/20 05:00 96 17 175/73 (107) 94 04/29/20 04:00 88 04/29/20 04:00 50 04/29/20 04:00 18 181/78 Mechanical Ventilator 50 04/29/20 04:00 18 181/78 Mechanical Ventilator 50 04/29/20 04:00 99.0 88 18 163/77 (105) 98 04/29/20 04:00 Mechanical Ventilator 04/29/20 03:55 18 157/83 Mechanical Ventilator 15.0 50 04/29/20 03:54 18 157/83 Mechanical Ventilator 50 04/29/20 03:32 18 157/83 Mechanical Ventilator 15.0 50 04/29/20 03:31 18 157/83 Mechanical Ventilator 50 04/29/20 03:11 69 18 50 04/29/20 03:00 18 157/83 Mechanical Ventilator 50 04/29/20 03:00 18 157/83 Mechanical Ventilator 50 04/29/20 03:00 62 18 157/83 (107) 100 04/29/20 02:00 60 18 103/60 (74) 100 04/29/20 02:00 18 103/60 Mechanical Ventilator 50 04/29/20 02:00 18 103/60 Mechanical Ventilator 50 04/29/20 01:07 65 18 50 04/29/20 01:00 70 18 133/80 (97) 99 04/29/20 01:00 18 133/80 Mechanical Ventilator 50 04/29/20 01:00 18 133/80 Mechanical Ventilator 50 04/29/20 00:00 69 04/29/20 00:00 50 04/29/20 00:00 Mechanical Ventilator 04/29/20 00:00 18 110/56 Mechanical Ventilator 50 04/29/20 00:00 18 110/56 Mechanical Ventilator 50 04/29/20 00:00 99.0 69 18 110/56 (74) 99 04/28/20 23:09 85 18 50 04/28/20 23:00 88 18 135/63 (87) 97 04/28/20 23:00 18 131/63 Mechanical Ventilator 50 04/28/20 23:00 18 135/63 Mechanical Ventilator 50 04/28/20 22:45 101 20 145/74 (97) 97 04/28/20 22:30 103 21 142/69 (93) 97 04/28/20 22:15 102 21 151/67 (95) 96 04/28/20 22:00 21 151/67 Mechanical Ventilator 50 04/28/20 22:00 19 136/67 Mechanical Ventilator 15.0 50 04/28/20 22:00 101 19 118/57 (77) 96 04/28/20 21:19 99.9 04/28/20 21:18 50 04/28/20 21:14 110 19 50 04/28/20 21:00 21 136/67 Mechanical Ventilator 50 04/28/20 21:00 21 136/67 Mechanical Ventilator 50 04/28/20 21:00 140 22 123/66 (85) 89 04/28/20 20:49 180/90 04/28/20 20:45 130 26 179/86 (117) 96 04/28/20 20:45 23 179/86 Mechanical Ventilator 50 04/28/20 20:45 23 179/86 Mechanical Ventilator 50 04/28/20 20:30 24 180/82 Mechanical Ventilator 50 04/28/20 20:30 24 180/82 Mechanical Ventilator 50 04/28/20 20:30 126 23 180/82 (114) 91 04/28/20 20:15 114 21 163/81 (108) 94 04/28/20 20:15 24 163/81 Mechanical Ventilator 45 04/28/20 20:15 24 163/81 Mechanical Ventilator 45 04/28/20 20:00 114 04/28/20 20:00 22 151/73 Mechanical Ventilator 45 04/28/20 20:00 22 151/73 Mechanical Ventilator 45 04/28/20 20:00 Mechanical Ventilator 04/28/20 20:00 100.0 110 22 151/73 (99) 94 04/28/20 20:00 45 04/28/20 19:45 113 23 154/80 (104) 94 04/28/20 19:34 114 19 45 04/28/20 19:30 115 26 167/71 (103) 94 04/28/20 19:15 119 21 168/78 (108) 93 04/28/20 19:00 117 24 149/72 (97) 93 04/28/20 19:00 24 161/77 Mechanical Ventilator 45 04/28/20 19:00 24 161/77 Mechanical Ventilator 45 04/28/20 18:15 24 143/78 Mechanical Ventilator 45 04/28/20 18:15 24 143/78 Mechanical Ventilator 45 04/28/20 18:00 28 153/77 Mechanical Ventilator 45 04/28/20 18:00 28 153/77 Mechanical Ventilator 45 04/28/20 18:00 131 25 153/77 (102) 90 04/28/20 17:45 26 173/81 Mechanical Ventilator 45 Height (Feet): 5 Height (Inches): 10.00 Weight (Pounds): 243 General Appearance: other - on vent HEENT: normocephalic, atraumatic, anicteric, no JVD, status post trach Respiratory/Chest: crackles/rales, rhonchi - bilaterally Cardiovascular: normal rate, regular rhythm, no gallop/murmur, no JVD Abdomen: normal bowel sounds, soft, non tender, no organomegaly, non distended Genitourinary: other - + joseph Extremities: no cyanosis Skin: no rash Neurologic/Psychiatric: other - sedated, on vent Lymphatic: no neck adenopathy Musculoskeletal: no effusion CT chest: IMPRESSION: There are mild subpleural ground-glass and consolidating infiltrates in the dependent portions of both lower lobes and to lesser degree the upper lobes consistent with bilateral pneumonia. The infiltrates are typical for Covid 19. No evidence of pulmonary embolus. CT abdomen and pelvis: IMPRESSION: 1. Scattered hepatic hypodense lesions, too small to characterize on this examination without intravenous contrast. 2. Colonic diverticulosis without evidence of acute diverticulitis. 3. Scattered enlarged mesenteric lymph nodes, presumably reactive. teral pneumonia. The infiltrates are typical for Covid 19. No evidence of pulmonary embolus. Chest x-ray - 12/19/19 - Indication: Shortness of breath Technique: One view of the chest Comparison: 02/17/2020 Findings: Interim worsening of bilateral infiltrates, particularly on the right. The heart is borderline enlarged. The pleural spaces are clear. Left arm PICC is again demonstrated Impression: Worsening bilateral infiltrates over one day, likely pneumonia CT chest - 02/19/20 - IMPRESSION: Increased extensive patchy ground-glass opacities and densities throughout the lungs, suggestive of Covid 19 infection. Chest x-ray 02/23/20 - Procedure: XRAY Chest 1v As Indication: Reason For Exam: INFECT Technique: One view of the chest Comparison: 02/20/2020 Findings: Allowing for differences in exposure technique, bilateral mid and lower lung infiltrates are probably unchanged. The heart size is normal. The pleural spaces are clear. Impression: Unchanged, over 4 days, findings as above. Chest x-ray - 02/25/20 - FINDINGS: Lungs: Interval slightly worsening bilateral airspace disease. Pleural space: Unremarkable. No pneumothorax. Heart: Unremarkable. No cardiomegaly. Mediastinum: Unremarkable. Bones/joints: Unremarkable. IMPRESSION: Interval slightly worsening bilateral airspace disease. Chest x-ray - 03/02/20 - Procedure: XRAY Chest 1v Indication: Shortness of breath Technique: One view of the chest Comparison: 02/25/2020 Findings: Bilateral interstitial and airspace infiltrates are unchanged. The heart size is normal. Left arm PICC is again demonstrated Impression: Unchanged, over one day, findings as above. Chest x-ray - 03/06/20 - Procedure: XRAY Chest 1v Indication: Shortness of breath Technique: One view of the chest Comparison: 03/02/2020 Findings: Bilateral infiltrates are unchanged. Normal heart size. Pleural spaces are clear Chest x-ray - 03/12/10 - Impression: COMPARISON: Chest radiograph March 06, 2020. FINDINGS/IMPRESSION: Improving basilar infiltrates. Follow chest radiograph recommended. The upper lung finley are clear. No pneumothorax. Stable cardiomegaly. Stable left upper extremity PICC line. anged, over 4 days, findings as above. Chest x-ray - 03/17/20 - Procedure: XRAY Chest 1v Indication: Shortness of breath Technique: One view of the chest Comparison: 03/12/2020 Findings: Left arm PICC is again demonstrated. Infiltrates are unchanged. The heart size is upper limits of normal. Impression: Unchanged, over 5 days, findings as above. Abdominal US - IMPRESSION: 1. Gallbladder is normal. 2. Hepatic steatosis. 3. 1.7 cm cyst right kidney. Impression. Chest x-ray - Procedure: XRAY Chest 1v Indication: Shortness of breath Technique: One view of the chest Comparison: 03/17/2020 Findings: Bilateral right greater than left infiltrates again demonstrated. The heart size is normal. There is a left arm PICC in good position. Impression: Unchanged, over 5 days, findings as above. Chest x-ray - 03/29/20 - Procedure: XRAY Chest 1v Indication: Cough Technique: One view of the chest Comparison: 03/28/2020 Findings: Bilateral infiltrates are unchanged or slightly worse, allowing for differences in exposure technique. The pleural spaces are clear. The heart size is normal. Stable satisfactory position of endotracheal tube, left arm PICC. Orogastric tube has retracted somewhat the position remains satisfactory. Impression: Stable to slightly worse bilateral infiltrates. Otherwise little casino change attendant one day Chest x-ray - 03/31/20 - Procedure: XRAY Chest 1v Indication: Post endotracheal tube repositioning Technique: One view of the chest Comparison: 3 hours earlier Findings: Interim advancement of endotracheal tube, tip projecting approximately 5 cm above the sunny. Interim advancement of orogastric tube as well. Bilateral infiltrates are unchanged. Left arm PICC remains Impression: Improved and now satisfactory tube positions as described. ICU nurse Maeve notified at the time of interpretation Chest x-ray - 04/02/20 - COMPARISON: Chest x-rays dated 03/31/20 and 03/12/20. FINDINGS: Lungs: No significant change in bilateral prominent interstitial markings. The lungs are otherwise clear without focal consolidation. Pleural space: Unremarkable. The costophrenic angles are sharp. No visible pneumothorax. Heart: Unremarkable. No cardiomegaly. Mediastinum: Unremarkable. Bones/joints: Unremarkable. Tubes, lines and devices: Endotracheal tube tip 6.5 cm above the sunny. NG tube tip in the distal stomach. Telemetry leads overlie the thorax. IMPRESSION: No significant change in bilateral prominent interstitial markings. Procedure: XRAY Chest 1v Procedure: XRAY Chest 1v Reason for study: Shortness of breath 04/06/20 - Comparison films: 04/02/2020. FINDINGS: Endotracheal tube and NG tube remain in place. There is worsening of right basilar infiltrates. Some haziness in left lung base unchanged. Cardiac and mediastinal silhouette are within normal limits. CP angles are sharp. The bony thorax appear unremarkable. IMPRESSION: Worsening of right basilar infiltrate. Chest x-ray - 04/09/20 - Procedure: XRAY Chest 1v FILM CXR 1 VIEW INDICATION: Infection COMPARISON: April 05, 2020 FINDINGS: Single frontal view demonstrates a normal cardiomediastinal silhouette. Endotracheal tube in place with tip above the sunny. Elevation of the right hemidiaphragm. Interstitial prominence with bilateral lower lobe infiltrates. Lung bases appear worse from the prior exam. Small right effusion. Right-sided PICC line with tip in the superior vena cava. Enteric tube in place. IMPRESSION: Interstitial prominence and bilateral lower lobe pneumonia with worsening appearance from the prior study. Chest x-ray - 04/12/20 - Procedure: XRAY Chest 1v Indication: Shortness of breath Technique: One view of the chest Comparison: 04/09/2020 Findings: Stable satisfactory tube and line positions. Bilateral infiltrates have worsened slightly since prior study. The heart size is normal. Impression: Worsening bilateral infiltrates, over 3 days Chest x-ray - 04/15/20 - COMPARISON: 02/11/21. FINDINGS: Lungs: There is been no significant change in mild to moderate patchy diffuse bilateral alveolar infiltrates which are most prominent in the lung bases. Pleural space: Unremarkable. No pneumothorax. Heart: Unremarkable. No cardiomegaly. Mediastinum: Unremarkable. Bones/joints: Unremarkable. Tubes, lines and devices: There is an endotracheal tube, right-sided PICC line and NG tube in good position. IMPRESSION: There is been no significant change in mild to moderate patchy diffuse bilateral alveolar infiltrates which are most prominent in the lung bases. Chest x-ray - 04/18/20 - Procedure: XRAY Chest 1v Indication: Cough Technique: One view of the chest Comparison: 04/15/2020 Findings: Less optimal inspiration currently than previously. Stable satisfactory positions of endotracheal and orogastric tubes and right arm PICC. Bilateral infiltrates are again demonstrated, unchanged. Impression: Unchanged, over 3 days, findings as above. Chest x-ray - 04/21/20 - Procedure: XRAY Chest 1v Indication: Dyspnea Technique: One view of the chest Comparison: 04/18/2020 Findings: Stable tube and line positions. Bilateral infiltrates are unchanged Impression: Unchanged, over one day, findings as above. Procedure: XRAY Chest 1v Procedure: XRAY Chest 1v Reason for study: Reason For Exam: SOB Chest x-ray - 04/25/20 - Comparison films: 04/21/2020. FINDINGS: Endotracheal tube, NG tube and right PICC line remain in place. Vascularity is normal. Bilateral infiltrates are unchanged. Cardiac and mediastinal silhouette are within normal limits. CP angles are sharp. The bony thorax appear unremarkable. IMPRESSION: NO SIGNIFICANT CHANGE COMPARED TO PREVIOUS EXAM. Microbiology Date/Time Source Procedure Growth Status 04/14/20 16:35 Stool Clostridium difficile Toxin Assay - Final Complete 04/12/20 08:40 Urine,Clean Catch Urine Culture - Final Cynthia Parapsilosis Complete 04/12/20 08:40 Sputum Gram Stain - Final Complete 04/12/20 08:40 Sputum Sputum Culture - Final NORMAL UPPER RESPIRATORY WILIAM AT 48 ... Complete 04/11/20 18:55 Blood Blood Culture - Final NO GROWTH AFTER 5 DAYS Complete Laboratory Tests Test 04/29/20 03:25 White Blood Count 7.3 K/UL (4.8-10.8) Red Blood Count 3.44 M/UL (4.70-6.10) L Hemoglobin 9.9 G/DL (14.2-18.0) L Hematocrit 31.4 % (42.0-52.0) L Mean Corpuscular Volume 91 FL (80-99) Mean Corpuscular Hemoglobin 28.9 PG (27.0-31.0) Mean Corpuscular Hemoglobin Concent 31.6 G/DL (32.0-36.0) L Red Cell Distribution Width 17.5 % (11.6-14.8) H Platelet Count 281 K/UL (150-450) Mean Platelet Volume 6.3 FL (6.5-10.1) L Neutrophils (%) (Auto) 84.9 % (45.0-75.0) H Lymphocytes (%) (Auto) 10.4 % (20.0-45.0) L Monocytes (%) (Auto) 4.3 % (1.0-10.0) Eosinophils (%) (Auto) 0.0 % (0.0-3.0) Basophils (%) (Auto) 0.4 % (0.0-2.0) Sodium Level 144 MMOL/L (136-145) Potassium Level 3.8 MMOL/L (3.5-5.1) Chloride Level 106 MMOL/L (98-107) Carbon Dioxide Level 30 MMOL/L (21-32) Anion Gap 8 mmol/L (5-15) Blood Urea Nitrogen 10 mg/dL (7-18) Creatinine 0.4 MG/DL (0.55-1.30) L Estimat Glomerular Filtration Rate > 60 mL/min (>60) Glucose Level 131 MG/DL (74-106) H Calcium Level 9.0 MG/DL (8.5-10.1) Current Medications Medications (Trade) Dose Ordered Sig/Dennis Route PRN Reason Start Time Stop Time Status Last Admin Dose Admin Acetaminophen (Tylenol) 650 mg Q4H PRN ORAL Temp >100.5 04/13/20 00:30 05/13/20 00:29 04/28/20 20:49 Chlorhexidine Gluconate (Marlen-Hex 2%) 1 applic DAILY@1999 TOPIC 03/30/20 20:00 06/28/20 19:59 04/28/20 20:02 Dextrose (Dextrose 50%) 25 ml Q30M PRN IV Hypoglycemia 03/29/20 20:45 06/27/20 20:44 Dextrose (Dextrose 50%) 50 ml Q30M PRN IV Hypoglycemia 03/29/20 20:45 06/27/20 20:44 Enoxaparin Sodium (Lovenox) 80 mg EVERY 12 HOURS SUBQ 04/06/20 21:00 07/05/20 20:59 04/29/20 08:56 Fentanyl Citrate 250 ml @ 1 mls/hr Q24H IV 04/27/20 22:00 04/29/20 21:59 04/29/20 13:53 Hydralazine HCl (Apresoline) 10 mg Q4H PRN IV For High Blood Pressure 03/30/20 12:15 06/28/20 12:14 04/29/20 05:53 Insulin Aspart (NovoLOG) Q6HR SUBQ 03/30/20 00:00 06/28/20 00:00 04/28/20 17:48 Lansoprazole (Prevacid) 15 mg Q12HR GT 04/20/20 21:00 05/20/20 20:59 04/29/20 08:54 Methylprednisolone Sodium Succinate (Solu-MEDROL) 20 mg Q12HR IVP 04/12/20 21:00 06/20/20 20:59 04/29/20 08:54 Midazolam HCl 200 ml @ 0 mls/hr Q24H PRN IV SEDATION 04/25/20 01:00 05/02/20 00:29 04/29/20 17:13 Quetiapine Fumarate (SEROqueL) 50 mg EVERY 8 HOURS ORAL 04/29/20 12:00 06/11/20 11:59 04/29/20 12:53 Trimethoprim/ Sulfamethoxazole (Bactrim-DS) 1 tab DAILY ORAL 04/30/20 09:00 05/07/20 08:59 Kisha Salazar MD Apr 29, 2020 17:40
--- NOTE | 2020-04-29 19:45 | General Progress Note ---
Subjective Allergies: Coded Allergies: No Known Allergies (Unverified , 02/05/20) Subjective above noted calm, on vent tolerating TF d/w RN Objective Last 24 Hour Vital Signs Date Time Temp Pulse Resp B/P (MAP) Pulse Ox O2 Delivery O2 Flow Rate FiO2 04/29/20 19:00 20 138/65 Endotracheal Tube 40 04/29/20 19:00 20 138/65 Endotracheal Tube 40 04/29/20 19:00 83 18 138/65 (89) 92 04/29/20 19:00 87 23 40 04/29/20 18:00 91 20 133/61 (85) 92 04/29/20 18:00 18 133/61 Endotracheal Tube 40 04/29/20 18:00 20 133/61 Endotracheal Tube 40 04/29/20 17:30 82 21 115/54 (74) 93 04/29/20 17:21 88 19 40 04/29/20 17:13 23 140/64 Endotracheal Tube 40 04/29/20 17:00 18 140/64 Endotracheal Tube 40 04/29/20 17:00 18 140/64 Endotracheal Tube 40 04/29/20 17:00 101 19 140/64 (89) 87 04/29/20 16:30 52 18 93/44 (60) 94 04/29/20 16:00 40 04/29/20 16:00 53 18 97/46 (63) 94 04/29/20 16:00 Mechanical Ventilator 04/29/20 16:00 18 97/45 Endotracheal Tube 40 04/29/20 16:00 18 97/45 Endotracheal Tube 40 04/29/20 16:00 53 04/29/20 16:00 97.6 55 18 97/45 (62) 93 04/29/20 15:00 54 18 93/42 (59) 94 04/29/20 15:00 18 93/42 Endotracheal Tube 40 04/29/20 15:00 18 93/42 Endotracheal Tube 40 04/29/20 14:41 54 18 40 04/29/20 14:00 57 18 89/44 (59) 94 04/29/20 14:00 18 89/44 Endotracheal Tube 40 04/29/20 14:00 18 89/44 Endotracheal Tube 40 04/29/20 13:53 18 106/48 Endotracheal Tube 40 04/29/20 13:10 56 18 40 04/29/20 13:00 62 18 100/39 (59) 90 04/29/20 13:00 18 106/48 Endotracheal Tube 40 04/29/20 13:00 18 106/48 Endotracheal Tube 40 04/29/20 12:30 59 18 106/48 (67) 91 04/29/20 12:00 58 04/29/20 12:00 Mechanical Ventilator 04/29/20 12:00 17 130/55 Endotracheal Tube 40 04/29/20 12:00 17 130/55 Endotracheal Tube 40 04/29/20 12:00 97.7 61 17 130/55 (80) 93 04/29/20 12:00 40 04/29/20 11:29 58 18 40 04/29/20 11:00 18 88/44 Endotracheal Tube 40 04/29/20 11:00 18 89/44 Endotracheal Tube 40 04/29/20 11:00 59 18 102/49 (66) 94 04/29/20 10:00 55 18 93/45 (61) 95 04/29/20 10:00 18 93/45 Endotracheal Tube 45 04/29/20 10:00 18 93/45 Endotracheal Tube 45 04/29/20 09:10 53 18 40 04/29/20 09:00 55 18 92/45 (61) 95 04/29/20 09:00 18 100/45 Endotracheal Tube 45 04/29/20 09:00 18 100/45 Endotracheal Tube 45 04/29/20 08:59 18 119/58 Endotracheal Tube 45 04/29/20 08:30 65 17 128/59 (82) 98 04/29/20 08:00 97.1 54 18 93/44 (60) 98 04/29/20 08:00 56 04/29/20 08:00 17 128/59 Endotracheal Tube 45 04/29/20 08:00 17 128/59 Endotracheal Tube 45 04/29/20 08:00 Mechanical Ventilator 04/29/20 07:15 58 18 91/44 (60) 97 04/29/20 07:07 57 18 45 04/29/20 07:00 45 04/29/20 07:00 18 91/44 Mechanical Ventilator 50 04/29/20 07:00 18 91/44 Mechanical Ventilator 50 04/29/20 07:00 61 18 94/44 (61) 96 04/29/20 06:45 70 18 104/47 (66) 94 04/29/20 06:30 76 18 136/66 (89) 96 04/29/20 06:15 95 23 177/74 (108) 93 04/29/20 06:00 92 19 151/63 (92) 94 04/29/20 06:00 18 151/63 Mechanical Ventilator 50 04/29/20 06:00 18 151/63 Mechanical Ventilator 50 04/29/20 05:53 188/72 04/29/20 05:50 110 23 188/72 (110) 91 04/29/20 05:45 95 16 175/91 (119) 94 04/29/20 05:30 97 20 176/79 (111) 94 04/29/20 05:24 81 18 50 04/29/20 05:15 89 19 175/79 (111) 96 04/29/20 05:00 18 175/79 Mechanical Ventilator 50 04/29/20 05:00 18 175/79 Mechanical Ventilator 50 04/29/20 05:00 96 17 175/73 (107) 94 04/29/20 04:00 88 04/29/20 04:00 50 04/29/20 04:00 18 181/78 Mechanical Ventilator 50 04/29/20 04:00 18 181/78 Mechanical Ventilator 50 04/29/20 04:00 99.0 88 18 163/77 (105) 98 04/29/20 04:00 Mechanical Ventilator 04/29/20 03:55 18 157/83 Mechanical Ventilator 15.0 50 04/29/20 03:54 18 157/83 Mechanical Ventilator 50 04/29/20 03:32 18 157/83 Mechanical Ventilator 15.0 50 04/29/20 03:31 18 157/83 Mechanical Ventilator 50 04/29/20 03:11 69 18 50 04/29/20 03:00 18 157/83 Mechanical Ventilator 50 04/29/20 03:00 18 157/83 Mechanical Ventilator 50 04/29/20 03:00 62 18 157/83 (107) 100 04/29/20 02:00 60 18 103/60 (74) 100 04/29/20 02:00 18 103/60 Mechanical Ventilator 50 04/29/20 02:00 18 103/60 Mechanical Ventilator 50 04/29/20 01:07 65 18 50 04/29/20 01:00 70 18 133/80 (97) 99 04/29/20 01:00 18 133/80 Mechanical Ventilator 50 04/29/20 01:00 18 133/80 Mechanical Ventilator 50 04/29/20 00:00 69 04/29/20 00:00 50 04/29/20 00:00 Mechanical Ventilator 04/29/20 00:00 18 110/56 Mechanical Ventilator 50 04/29/20 00:00 18 110/56 Mechanical Ventilator 50 04/29/20 00:00 99.0 69 18 110/56 (74) 99 04/28/20 23:09 85 18 50 04/28/20 23:00 88 18 135/63 (87) 97 04/28/20 23:00 18 131/63 Mechanical Ventilator 50 04/28/20 23:00 18 135/63 Mechanical Ventilator 50 04/28/20 22:45 101 20 145/74 (97) 97 04/28/20 22:30 103 21 142/69 (93) 97 04/28/20 22:15 102 21 151/67 (95) 96 04/28/20 22:00 21 151/67 Mechanical Ventilator 50 04/28/20 22:00 19 136/67 Mechanical Ventilator 15.0 50 04/28/20 22:00 101 19 118/57 (77) 96 04/28/20 21:19 99.9 04/28/20 21:18 50 04/28/20 21:14 110 19 50 04/28/20 21:00 21 136/67 Mechanical Ventilator 50 04/28/20 21:00 21 136/67 Mechanical Ventilator 50 04/28/20 21:00 140 22 123/66 (85) 89 04/28/20 20:49 180/90 04/28/20 20:45 130 26 179/86 (117) 96 04/28/20 20:45 23 179/86 Mechanical Ventilator 50 04/28/20 20:45 23 179/86 Mechanical Ventilator 50 04/28/20 20:30 24 180/82 Mechanical Ventilator 50 04/28/20 20:30 24 180/82 Mechanical Ventilator 50 04/28/20 20:30 126 23 180/82 (114) 91 04/28/20 20:15 114 21 163/81 (108) 94 04/28/20 20:15 24 163/81 Mechanical Ventilator 45 04/28/20 20:15 24 163/81 Mechanical Ventilator 45 04/28/20 20:00 114 04/28/20 20:00 22 151/73 Mechanical Ventilator 45 04/28/20 20:00 22 151/73 Mechanical Ventilator 45 04/28/20 20:00 Mechanical Ventilator 04/28/20 20:00 100.0 110 22 151/73 (99) 94 04/28/20 20:00 45 04/28/20 19:45 113 23 154/80 (104) 94 Intake and Output 04/28/20 04/29/20 19:00 07:00 Intake Total 1126.81 ml 1240.00 ml Output Total 1250 ml 1000 ml Balance -123.19 ml 240.00 ml Free Water 50 ml IV Total 1126.81 ml 1150.00 ml Tube Feeding 40 ml Output Urine Total 1250 ml 1000 ml Stool Total 0 ml # Bowel Movements 1 Laboratory Tests 04/29/20 03:25: White Blood Count 7.3, Red Blood Count 3.44L, Hemoglobin 9.9L, Hematocrit 31.4L, Mean Corpuscular Volume 91, Mean Corpuscular Hemoglobin 28.9, Mean Corpuscular Hemoglobin Concent 31.6L, Red Cell Distribution Width 17.5H, Platelet Count 281, Mean Platelet Volume 6.3L, Neutrophils (%) (Auto) 84.9H, Lymphocytes (%) (Auto) 10.4L, Monocytes (%) (Auto) 4.3, Eosinophils (%) (Auto) 0.0, Basophils (%) (Auto) 0.4, Sodium Level 144, Potassium Level 3.8, Chloride Level 106, Carbon Dioxide Level 30, Anion Gap 8, Blood Urea Nitrogen 10, Creatinine 0.4L, Estimat Glomerular Filtration Rate > 60, Glucose Level 131H, Calcium Level 9.0 Height (Feet): 5 Height (Inches): 10.00 Weight (Pounds): 243 Objective Patient seen in ICU on vent tolerating TF NCAT neck (+) trach coarse BS RR abd soft ND (+) PEG no edema Assessment/Plan Status: not improved, unchanged Assessment/Plan: Assessment: Dysphagia - s/p PEG COVID PNA, Resp failure - s/p Trach DM Abnormal LFT -- COVID Hepatitis C Ab (+), PCR (-) Anemia Low albumin Recommendations Continue GT feeds elevated HOB follow labs Add protein supplements Kourtney Davila MD Apr 29, 2020 19:45
[2020-04-29] MEDS: Dyna-Hex 2% Top Sol 2oz TOPIC SCH (20:29)
--- NOTE | 2020-04-29 22:11 | Cardiology Progress Note ---
Assessment/Plan Assessment/Plan respiratory failure, unresponsiveness main issues are not cardiac Subjective Subjective the patient is very lethargic Objective Last 24 Hour Vital Signs Date Time Temp Pulse Resp B/P (MAP) Pulse Ox O2 Delivery O2 Flow Rate FiO2 04/29/20 22:00 114 23 173/76 (108) 98 04/29/20 21:42 28 145/62 Mechanical Ventilator 60 04/29/20 21:30 111 21 145/62 (89) 93 04/29/20 21:00 118 22 145/65 (91) 89 04/29/20 20:00 Mechanical Ventilator 04/29/20 20:00 108 23 138/79 (98) 90 04/29/20 20:00 40 04/29/20 19:00 20 138/65 Endotracheal Tube 40 04/29/20 19:00 20 138/65 Endotracheal Tube 40 04/29/20 19:00 83 18 138/65 (89) 92 04/29/20 19:00 87 23 40 04/29/20 18:00 91 20 133/61 (85) 92 04/29/20 18:00 18 133/61 Endotracheal Tube 40 04/29/20 18:00 20 133/61 Endotracheal Tube 40 04/29/20 17:30 82 21 115/54 (74) 93 04/29/20 17:21 88 19 40 04/29/20 17:13 23 140/64 Endotracheal Tube 40 04/29/20 17:00 18 140/64 Endotracheal Tube 40 04/29/20 17:00 18 140/64 Endotracheal Tube 40 04/29/20 17:00 101 19 140/64 (89) 87 04/29/20 16:30 52 18 93/44 (60) 94 04/29/20 16:00 40 04/29/20 16:00 53 18 97/46 (63) 94 04/29/20 16:00 Mechanical Ventilator 04/29/20 16:00 18 97/45 Endotracheal Tube 40 04/29/20 16:00 18 97/45 Endotracheal Tube 40 04/29/20 16:00 53 04/29/20 16:00 97.6 55 18 97/45 (62) 93 04/29/20 15:00 54 18 93/42 (59) 94 04/29/20 15:00 18 93/42 Endotracheal Tube 40 04/29/20 15:00 18 93/42 Endotracheal Tube 40 04/29/20 14:41 54 18 40 04/29/20 14:00 57 18 89/44 (59) 94 04/29/20 14:00 18 89/44 Endotracheal Tube 40 04/29/20 14:00 18 89/44 Endotracheal Tube 40 04/29/20 13:53 18 106/48 Endotracheal Tube 40 04/29/20 13:10 56 18 40 04/29/20 13:00 62 18 100/39 (59) 90 04/29/20 13:00 18 106/48 Endotracheal Tube 40 04/29/20 13:00 18 106/48 Endotracheal Tube 40 04/29/20 12:30 59 18 106/48 (67) 91 04/29/20 12:00 58 04/29/20 12:00 Mechanical Ventilator 04/29/20 12:00 17 130/55 Endotracheal Tube 40 04/29/20 12:00 17 130/55 Endotracheal Tube 40 04/29/20 12:00 97.7 61 17 130/55 (80) 93 04/29/20 12:00 40 04/29/20 11:29 58 18 40 04/29/20 11:00 18 88/44 Endotracheal Tube 40 04/29/20 11:00 18 89/44 Endotracheal Tube 40 04/29/20 11:00 59 18 102/49 (66) 94 04/29/20 10:00 55 18 93/45 (61) 95 04/29/20 10:00 18 93/45 Endotracheal Tube 45 04/29/20 10:00 18 93/45 Endotracheal Tube 45 04/29/20 09:10 53 18 40 04/29/20 09:00 55 18 92/45 (61) 95 04/29/20 09:00 18 100/45 Endotracheal Tube 45 04/29/20 09:00 18 100/45 Endotracheal Tube 45 04/29/20 08:59 18 119/58 Endotracheal Tube 45 04/29/20 08:30 65 17 128/59 (82) 98 04/29/20 08:00 97.1 54 18 93/44 (60) 98 04/29/20 08:00 56 04/29/20 08:00 17 128/59 Endotracheal Tube 45 04/29/20 08:00 17 128/59 Endotracheal Tube 45 04/29/20 08:00 Mechanical Ventilator 04/29/20 07:15 58 18 91/44 (60) 97 04/29/20 07:07 57 18 45 04/29/20 07:00 45 04/29/20 07:00 18 91/44 Mechanical Ventilator 50 04/29/20 07:00 18 91/44 Mechanical Ventilator 50 04/29/20 07:00 61 18 94/44 (61) 96 04/29/20 06:45 70 18 104/47 (66) 94 04/29/20 06:30 76 18 136/66 (89) 96 04/29/20 06:15 95 23 177/74 (108) 93 04/29/20 06:00 92 19 151/63 (92) 94 04/29/20 06:00 18 151/63 Mechanical Ventilator 50 04/29/20 06:00 18 151/63 Mechanical Ventilator 50 04/29/20 05:53 188/72 04/29/20 05:50 110 23 188/72 (110) 91 04/29/20 05:45 95 16 175/91 (119) 94 04/29/20 05:30 97 20 176/79 (111) 94 04/29/20 05:24 81 18 50 04/29/20 05:15 89 19 175/79 (111) 96 04/29/20 05:00 18 175/79 Mechanical Ventilator 50 04/29/20 05:00 18 175/79 Mechanical Ventilator 50 04/29/20 05:00 96 17 175/73 (107) 94 04/29/20 04:00 88 04/29/20 04:00 50 04/29/20 04:00 18 181/78 Mechanical Ventilator 50 04/29/20 04:00 18 181/78 Mechanical Ventilator 50 04/29/20 04:00 99.0 88 18 163/77 (105) 98 04/29/20 04:00 Mechanical Ventilator 04/29/20 03:55 18 157/83 Mechanical Ventilator 15.0 50 04/29/20 03:54 18 157/83 Mechanical Ventilator 50 04/29/20 03:32 18 157/83 Mechanical Ventilator 15.0 50 04/29/20 03:31 18 157/83 Mechanical Ventilator 50 04/29/20 03:11 69 18 50 04/29/20 03:00 18 157/83 Mechanical Ventilator 50 04/29/20 03:00 18 157/83 Mechanical Ventilator 50 04/29/20 03:00 62 18 157/83 (107) 100 04/29/20 02:00 60 18 103/60 (74) 100 04/29/20 02:00 18 103/60 Mechanical Ventilator 50 04/29/20 02:00 18 103/60 Mechanical Ventilator 50 04/29/20 01:07 65 18 50 04/29/20 01:00 70 18 133/80 (97) 99 04/29/20 01:00 18 133/80 Mechanical Ventilator 50 04/29/20 01:00 18 133/80 Mechanical Ventilator 50 04/29/20 00:00 69 04/29/20 00:00 50 04/29/20 00:00 Mechanical Ventilator 04/29/20 00:00 18 110/56 Mechanical Ventilator 50 04/29/20 00:00 18 110/56 Mechanical Ventilator 50 04/29/20 00:00 99.0 69 18 110/56 (74) 99 04/28/20 23:09 85 18 50 04/28/20 23:00 88 18 135/63 (87) 97 04/28/20 23:00 18 131/63 Mechanical Ventilator 50 04/28/20 23:00 18 135/63 Mechanical Ventilator 50 04/28/20 22:45 101 20 145/74 (97) 97 04/28/20 22:30 103 21 142/69 (93) 97 04/28/20 22:15 102 21 151/67 (95) 96 General Appearance: on vent EENT: normal ENT inspection, other Neck: other - tracheostomy Rhythm: ST Cardiovascular: tachycardia Respiratory/Chest: crackles/rales Abdomen: other Extremities: severe edema Intake and Output 04/28/20 04/29/20 19:00 07:00 Intake Total 1126.81 ml 1240.00 ml Output Total 1250 ml 1000 ml Balance -123.19 ml 240.00 ml Free Water 50 ml IV Total 1126.81 ml 1150.00 ml Tube Feeding 40 ml Output Urine Total 1250 ml 1000 ml Stool Total 0 ml # Bowel Movements 1 Laboratory Tests Test 04/29/20 03:25 White Blood Count 7.3 K/UL (4.8-10.8) Red Blood Count 3.44 M/UL (4.70-6.10) L Hemoglobin 9.9 G/DL (14.2-18.0) L Hematocrit 31.4 % (42.0-52.0) L Mean Corpuscular Volume 91 FL (80-99) Mean Corpuscular Hemoglobin 28.9 PG (27.0-31.0) Mean Corpuscular Hemoglobin Concent 31.6 G/DL (32.0-36.0) L Red Cell Distribution Width 17.5 % (11.6-14.8) H Platelet Count 281 K/UL (150-450) Mean Platelet Volume 6.3 FL (6.5-10.1) L Neutrophils (%) (Auto) 84.9 % (45.0-75.0) H Lymphocytes (%) (Auto) 10.4 % (20.0-45.0) L Monocytes (%) (Auto) 4.3 % (1.0-10.0) Eosinophils (%) (Auto) 0.0 % (0.0-3.0) Basophils (%) (Auto) 0.4 % (0.0-2.0) Sodium Level 144 MMOL/L (136-145) Potassium Level 3.8 MMOL/L (3.5-5.1) Chloride Level 106 MMOL/L (98-107) Carbon Dioxide Level 30 MMOL/L (21-32) Anion Gap 8 mmol/L (5-15) Blood Urea Nitrogen 10 mg/dL (7-18) Creatinine 0.4 MG/DL (0.55-1.30) L Estimat Glomerular Filtration Rate > 60 mL/min (>60) Glucose Level 131 MG/DL (74-106) H Calcium Level 9.0 MG/DL (8.5-10.1) Cha Chopra MD Apr 29, 2020 22:11
[2020-04-30] VITALS (32 sets, daily range): BP systolic 131–206; BP diastolic 66–126
[2020-04-30 05:49] LABS: HEMATOCRIT 33.3 % (42.0-52.0); HEMOGLOBIN 10.3 G/DL (14.2-18.0); MEAN CORPUSCULAR VOLUME 92 FL (80-99); PLATELET COUNT 296 K/UL (150-450); RED BLOOD COUNT 3.62 M/UL (4.70-6.10); RED CELL DISTRIBUTION WIDTH 17.4 % (11.6-14.8); WHITE BLOOD COUNT 8.1 K/UL (4.8-10.8)
[2020-04-30] MEDS: NovoLOG Insulin Flexpen SUBQ SCH ×4 (06:00→18:00)
[2020-04-30 06:54] LABS: ALANINE AMINOTRANSFERASE 51 U/L (12-78); ALBUMIN 2.8 G/DL (3.4-5.0); ALBUMIN/GLOBULIN RATIO 0.8 (1.0-2.7); ALKALINE PHOSPHATASE 146 U/L (46-116); ANION GAP 8 mmol/L (5-15); ASPARTATE AMINO TRANSFERASE 15 U/L (15-37); BILIRUBIN,TOTAL 0.4 MG/DL (0.2-1.0); BLOOD UREA NITROGEN 14 mg/dL (7-18); CALCIUM 9.2 MG/DL (8.5-10.1); CARBON DIOXIDE 30 MMOL/L (21-32); CHLORIDE 105 MMOL/L (98-107); CREATININE 0.5 MG/DL (0.55-1.30); POTASSIUM 3.6 MMOL/L (3.5-5.1); SODIUM 143 MMOL/L (136-145)
[2020-04-30] MEDS: fentaNYL 2500mcg/NS 250ml 250 ML IV SCH ×2 (07:20)
--- NOTE | 2020-04-30 07:28 | NUR ---
NURSE NOTES: Received report from Gwen Hyman RN.
[2020-04-30] MEDS: fentaNYL 2500mcg/NS 250ml 250 ML IV PRN (07:29)
[2020-04-30] MEDS: [UNRECOGNIZED DRUG - OTHER] IV PRN ×2 (08:12→18:13)
[2020-04-30] MEDS: VERSED IV PRN ×2 (08:12→18:13)
--- NOTE | 2020-04-30 08:44 | NUR ---
NURSE NOTES: Pt. in bed, occasionally opens his eyes when calling his name. Right hand able to squeeze my hand a little bit. No s/sx of distress noted. On mech. vent. with setting AC18/VT750/Fi O2 of 60%/P5. No grimacing noted. HOB elevated at all times. On GTF with Glucerna 1.5 at 40cc/hr. No n/v noted. Tolerating feeding. PICC line at right upper arm in placed patent/intact. Right wrist restraint in placed. F/C in placed patent/intact draining jeff colored urine. Bed in low position, locked. Call light within reach. Will cont. to monitor.
[2020-04-30] MEDS: Lansoprazole 15mg cap GT SCH ×2 (09:25→20:40)
[2020-04-30] MEDS: Solu-MEDROL 40mg Inj IVP SCH ×2 (09:26→20:40)
[2020-04-30] MEDS: Bactrim-DS 1 tab ORAL SCH (09:26)
[2020-04-30] MEDS: Enoxaparin 80mg Inj SUBQ SCH ×2 (09:29→20:42)
--- NOTE | 2020-04-30 10:05 | NUR ---
NURSE NOTES: Seen by Dr. Davila with nno.
--- NOTE | 2020-04-30 10:10 | Diagnostic Imaging Report ---
EXAM: XR Chest, 1 View CLINICAL HISTORY: INFECT TECHNIQUE: Frontal view of the chest. COMPARISON: Chest x-rays dated 04/25/20 FINDINGS: Lungs: Bilateral patchy pulmonary opacities concerning for pneumonia, not significantly changed compared to the prior chest x-ray. Pleural space: Unremarkable. The costophrenic angles are sharp. No visible pneumothorax. Heart: Unremarkable. No cardiomegaly. Mediastinum: Unremarkable. Bones/joints: Unremarkable. Tubes, lines and devices: Tracheostomy tube in place, with expected positioning. Telemetry leads overlie the thorax. Right arm PICC with catheter tip in the SVC region. IMPRESSION: Bilateral patchy pulmonary opacities concerning for pneumonia, not significantly changed compared to the prior chest x-ray.
--- NOTE | 2020-04-30 10:43 | Pulmonology Progress Note ---
Subjective ROS Limited/Unobtainable: Yes Interval Events: S/p tracheostomy 04/25/20 Constitutional: Reports: fever - lgt x 1, fatigue, other - + trach and vent HEENT: Repors: no symptoms Respiratory: Reports: dry cough, shortness of breath Cardiovascular: Reports: no symptoms Gastrointestinal/Abdominal: Denies: nausea, vomiting Psychiatric: Reports: other - NA Skin: Denies: rash Musculoskeletal: Reports: other - NA Allergies: Coded Allergies: No Known Allergies (Unverified , 02/05/20) Objective Last 24 Hour Vital Signs Date Time Temp Pulse Resp B/P (MAP) Pulse Ox O2 Delivery O2 Flow Rate FiO2 04/30/20 10:00 94 20 186/93 (124) 99 04/30/20 09:00 98.1 91 17 180/126 (144) 99 04/30/20 08:25 100 22 60 04/30/20 08:12 22 170/106 Mechanical Ventilator 15.0 60 04/30/20 08:00 100 20 170/106 (127) 98 04/30/20 08:00 60 04/30/20 08:00 20 170/106 Mechanical Ventilator 60 04/30/20 08:00 Mechanical Ventilator 04/30/20 07:32 109 04/30/20 07:29 30 187/116 Mechanical Ventilator 60 04/30/20 07:21 23 187/116 Mechanical Ventilator 60 04/30/20 07:20 19 175/91 Mechanical Ventilator 60 04/30/20 07:09 91 21 60 04/30/20 07:00 20 185/105 Mechanical Ventilator 60 04/30/20 07:00 93 20 185/105 (131) 98 04/30/20 06:00 19 185/100 Mechanical Ventilator 60 04/30/20 06:00 19 185/100 Mechanical Ventilator 60 04/30/20 06:00 98 18 180/84 (116) 99 04/30/20 05:00 16 194/91 Mechanical Ventilator 60 04/30/20 05:00 16 19491 Mechanical Ventilator 60 04/30/20 05:00 102 17 183/89 (120) 99 04/30/20 04:30 94 12 173/90 (117) 99 04/30/20 04:00 16 169/81 Mechanical Ventilator 60 04/30/20 04:00 16 169/81 Mechanical Ventilator 60 04/30/20 04:00 Mechanical Ventilator 04/30/20 04:00 102 13 182/83 (116) 98 04/30/20 04:00 60 04/30/20 04:00 98 04/30/20 03:00 19 184/71 Mechanical Ventilator 60 04/30/20 03:00 19 184/71 Mechanical Ventilator 60 04/30/20 03:00 113 19 184/71 (108) 97 04/30/20 02:48 119 24 60 04/30/20 02:30 119 21 206/86 (126) 97 04/30/20 02:00 119 20 177/86 (116) 98 04/30/20 02:00 20 177/86 Mechanical Ventilator 60 04/30/20 02:00 20 177/86 Mechanical Ventilator 60 04/30/20 01:30 102 9 180/78 (112) 99 04/30/20 01:00 97 20 162/72 (102) 99 04/30/20 01:00 20 162/72 Mechanical Ventilator 60 04/30/20 01:00 20 162/72 Mechanical Ventilator 60 04/30/20 00:30 100 14 156/77 (103) 99 04/30/20 00:00 Mechanical Ventilator 04/30/20 00:00 40 04/30/20 00:00 105 19 165/66 (99) 99 04/30/20 00:00 21 177/86 Mechanical Ventilator 60 04/30/20 00:00 19 165/66 Mechanical Ventilator 60 04/30/20 00:00 105 04/29/20 23:30 106 23 175/85 (115) 99 04/29/20 23:00 112 26 175/91 (119) 99 04/29/20 23:00 26 175/91 Mechanical Ventilator 60 04/29/20 23:00 26 175/91 Mechanical Ventilator 60 04/29/20 23:00 110 25 60 04/29/20 22:00 114 23 173/76 (108) 98 04/29/20 22:00 26 175/91 Mechanical Ventilator 60 04/29/20 22:00 23 173/76 Mechanical Ventilator 60 04/29/20 21:42 23 173/76 Mechanical Ventilator 40 04/29/20 21:42 28 145/62 Mechanical Ventilator 60 04/29/20 21:30 111 21 145/62 (89) 93 04/29/20 21:00 22 145/65 Mechanical Ventilator 40 04/29/20 21:00 22 145/65 Mechanical Ventilator 60 04/29/20 21:00 118 22 145/65 (91) 89 04/29/20 20:00 108 04/29/20 20:00 Mechanical Ventilator 04/29/20 20:00 108 23 138/79 (98) 90 04/29/20 20:00 23 138/79 Mechanical Ventilator 40 04/29/20 20:00 23 138/79 Mechanical Ventilator 60 04/29/20 20:00 40 04/29/20 19:00 20 138/65 Endotracheal Tube 40 04/29/20 19:00 20 138/65 Endotracheal Tube 40 04/29/20 19:00 83 18 138/65 (89) 92 04/29/20 19:00 87 23 40 04/29/20 18:00 91 20 133/61 (85) 92 04/29/20 18:00 18 133/61 Endotracheal Tube 40 04/29/20 18:00 20 133/61 Endotracheal Tube 40 04/29/20 17:30 82 21 115/54 (74) 93 04/29/20 17:21 88 19 40 04/29/20 17:13 23 140/64 Endotracheal Tube 40 04/29/20 17:00 18 140/64 Endotracheal Tube 40 04/29/20 17:00 18 140/64 Endotracheal Tube 40 04/29/20 17:00 101 19 140/64 (89) 87 04/29/20 16:30 52 18 93/44 (60) 94 04/29/20 16:00 40 04/29/20 16:00 53 18 97/46 (63) 94 04/29/20 16:00 Mechanical Ventilator 04/29/20 16:00 18 97/45 Endotracheal Tube 40 04/29/20 16:00 18 97/45 Endotracheal Tube 40 04/29/20 16:00 53 04/29/20 16:00 97.6 55 18 97/45 (62) 93 04/29/20 15:00 54 18 93/42 (59) 94 04/29/20 15:00 18 93/42 Endotracheal Tube 40 04/29/20 15:00 18 93/42 Endotracheal Tube 40 04/29/20 14:41 54 18 40 04/29/20 14:00 57 18 89/44 (59) 94 04/29/20 14:00 18 89/44 Endotracheal Tube 40 04/29/20 14:00 18 89/44 Endotracheal Tube 40 04/29/20 13:53 18 106/48 Endotracheal Tube 40 04/29/20 13:10 56 18 40 04/29/20 13:00 62 18 100/39 (59) 90 04/29/20 13:00 18 106/48 Endotracheal Tube 40 04/29/20 13:00 18 106/48 Endotracheal Tube 40 04/29/20 12:30 59 18 106/48 (67) 91 04/29/20 12:00 58 04/29/20 12:00 Mechanical Ventilator 04/29/20 12:00 17 130/55 Endotracheal Tube 40 04/29/20 12:00 17 130/55 Endotracheal Tube 40 04/29/20 12:00 97.7 61 17 130/55 (80) 93 04/29/20 12:00 40 04/29/20 11:29 58 18 40 04/29/20 11:00 18 88/44 Endotracheal Tube 40 04/29/20 11:00 18 89/44 Endotracheal Tube 40 04/29/20 11:00 59 18 102/49 (66) 94 Intake and Output 04/29/20 04/30/20 19:00 07:00 Intake Total 1360 ml 856 ml Output Total 325 ml 830 ml Balance 1035 ml 26 ml Free Water 130 ml IV Total 890 ml 376 ml Tube Feeding 340 ml 480 ml Output Urine Total 325 ml 830 ml # Bowel Movements 1 1 General Appearance: WD/WN, no acute distress HEENT: normocephalic, atraumatic, status post trach Respiratory: chest wall non-tender Cardiovascular: normal rate, regular rhythm Abdomen: normal bowel sounds, soft, non tender, other - obese Laboratory Tests 04/30/20 03:24: White Blood Count 8.1, Red Blood Count 3.62L, Hemoglobin 10.3L, Hematocrit 33.3L , Mean Corpuscular Volume 92, Mean Corpuscular Hemoglobin 28.4, Mean Corpuscular Hemoglobin Concent 30.9L, Red Cell Distribution Width 17.4H, Platelet Count 296, Mean Platelet Volume 6.3L, Neutrophils (%) (Auto) , Lymphocytes (%) (Auto) , Monocytes (%) (Auto) , Eosinophils (%) (Auto) , Basophils (%) (Auto) , Differential Total Cells Counted 100, Neutrophils % (Manual) 89H, Lymphocytes % (Manual) 7L, Monocytes % (Manual) 4, Eosinophils % (Manual) 0, Basophils % (Manual) 0, Band Neutrophils 0, Platelet Estimate Adequate, Platelet Morphology Normal, Polychromasia 1+, Hypochromasia 1+, Anisocytosis 1+, Sodium Level 143, Potassium Level 3.6, Chloride Level 105, Carbon Dioxide Level 30, Anion Gap 8, Blood Urea Nitrogen 14, Creatinine 0.5L, Estimat Glomerular Filtration Rate > 60, Glucose Level 122H, Calcium Level 9.2, Total Bilirubin 0.4, Aspartate Amino Transf (AST/SGOT) 15, Alanine Aminotransferase (ALT/SGPT) 51, Alkaline Phosphatase 146H, Total Protein 6.1L, Albumin 2.8L, Globulin 3.3, Albumin/Globulin Ratio 0.8L Current Medications Medications (Trade) Dose Ordered Sig/Dennis Route PRN Reason Start Time Stop Time Status Last Admin Dose Admin Acetaminophen (Tylenol) 650 mg Q4H PRN ORAL Temp >100.5 04/13/20 00:30 05/13/20 00:29 04/28/20 20:49 Chlorhexidine Gluconate (Marlen-Hex 2%) 1 applic DAILY@2000 TOPIC 03/30/20 20:00 06/28/20 19:59 04/29/20 20:29 Dextrose (Dextrose 50%) 25 ml Q30M PRN IV Hypoglycemia 03/29/20 20:45 06/27/20 20:44 Dextrose (Dextrose 50%) 50 ml Q30M PRN IV Hypoglycemia 03/29/20 20:45 06/27/20 20:44 Enoxaparin Sodium (Lovenox) 80 mg EVERY 12 HOURS SUBQ 04/06/20 21:00 07/05/20 20:59 04/30/20 09:29 Fentanyl Citrate 250 ml @ 1 mls/hr Q24H PRN IV SEDATION 04/30/20 07:30 05/01/20 23:44 04/30/20 07:29 Hydralazine HCl (Apresoline) 10 mg Q4H PRN IV For High Blood Pressure 03/30/20 12:15 06/28/20 12:14 04/29/20 05:53 Insulin Aspart (NovoLOG) Q6HR SUBQ 03/30/20 00:00 06/28/20 00:00 04/28/20 17:48 Lansoprazole (Prevacid) 15 mg Q12HR GT 04/20/20 21:00 05/20/20 20:59 04/30/20 09:25 Methylprednisolone Sodium Succinate (Solu-MEDROL) 20 mg Q12HR IVP 04/12/20 21:00 06/20/20 20:59 04/30/20 09:26 Midazolam HCl 200 ml @ 0 mls/hr Q24H PRN IV SEDATION 04/25/20 01:00 05/02/20 00:29 04/30/20 08:12 Quetiapine Fumarate (SEROqueL) 50 mg EVERY 8 HOURS ORAL 04/29/20 12:00 06/11/20 11:59 04/30/20 06:42 Trimethoprim/ Sulfamethoxazole (Bactrim-DS) 1 tab DAILY ORAL 04/30/20 09:00 05/07/20 08:59 04/30/20 09:26 Assessment/Plan Assessment/Plan 1.COVID-19 pneumonia. - Completed specific therapies - On solumedrol 20 Iv q 12 - will add bactrim for PJP prophylaxis 2. DVT ppx - on lovenox 3. Hypertension - no longer on meds - Not requiring pressors 4. Leukocytosis; - ID following - Off abx - Candidemia documented 03/18/20 5. Elevated LFT - positive Hep C; treated in the past with IF 6. Respiratory failure -Intubated 03/28/20; s/p tracheostomy 04/25/20 -Family aware - Prognosis guarded - Vt 750; rate 18 -On sedation; will wean off; increased Seroquel to 50 TID 7. Discussed with cardiology -No evidence for cardiac dysfunction or PE 8. AMS -back on sedation S/p new PICC line Noted left upper extremity swelling. Has DVT; on full dose Lovenox Decrease sedation, DC propofol given high triglycerides. Will wean down FiO2 as tolerated CXR shows bilateral interstitial changes? fibrosis? S/p PEG Will dc IV fluids Increase tube feedings Dc planning to subacute The care for this patient was discussed with my supervising physician Time spent for this case was approximately 31 minutes Edilson Marinelli Apr 30, 2020 10:43
--- NOTE | 2020-04-30 11:17 | Surgery Progress Note ---
Surgery Progress Note Subjective Procedure Performed tracheostomy Symptoms: improved, tolerating diet, passing flatus Objective Last 24 Hour Vital Signs Date Time Temp Pulse Resp B/P (MAP) Pulse Ox O2 Delivery O2 Flow Rate FiO2 04/30/20 10:00 20 186/93 Mechanical Ventilator 60 04/30/20 10:00 20 186/93 Mechanical Ventilator 60 04/30/20 10:00 94 20 186/93 (124) 99 04/30/20 09:00 98.1 91 17 180/126 (144) 99 04/30/20 09:00 17 180/126 Mechanical Ventilator 60 04/30/20 09:00 17 180/126 Mechanical Ventilator 60 04/30/20 08:25 100 22 60 04/30/20 08:12 22 170/106 Mechanical Ventilator 15.0 60 04/30/20 08:00 100 20 170/106 (127) 98 04/30/20 08:00 60 04/30/20 08:00 20 170/106 Mechanical Ventilator 60 04/30/20 08:00 Mechanical Ventilator 04/30/20 07:32 109 04/30/20 07:29 30 187/116 Mechanical Ventilator 60 04/30/20 07:21 23 187/116 Mechanical Ventilator 60 04/30/20 07:20 19 175/91 Mechanical Ventilator 60 04/30/20 07:09 91 21 60 04/30/20 07:00 20 185/105 Mechanical Ventilator 60 04/30/20 07:00 93 20 185/105 (131) 98 04/30/20 06:00 19 185/100 Mechanical Ventilator 60 04/30/20 06:00 19 185/100 Mechanical Ventilator 60 04/30/20 06:00 98 18 180/84 (116) 99 04/30/20 05:00 16 194/91 Mechanical Ventilator 60 04/30/20 05:00 16 194/91 Mechanical Ventilator 60 04/30/20 05:00 102 17 183/89 (120) 99 04/30/20 04:30 94 12 173/90 (117) 99 04/30/20 04:00 16 169/81 Mechanical Ventilator 60 04/30/20 04:00 16 169/81 Mechanical Ventilator 60 04/30/20 04:00 Mechanical Ventilator 04/30/20 04:00 102 13 182/83 (116) 98 04/30/20 04:00 60 04/30/20 04:00 98 04/30/20 03:00 19 184/71 Mechanical Ventilator 60 04/30/20 03:00 19 184/71 Mechanical Ventilator 60 04/30/20 03:00 113 19 184/71 (108) 97 04/30/20 02:48 119 24 60 04/30/20 02:30 119 21 206/86 (126) 97 04/30/20 02:00 119 20 177/86 (116) 98 04/30/20 02:00 20 177/86 Mechanical Ventilator 60 04/30/20 02:00 20 177/86 Mechanical Ventilator 60 04/30/20 01:30 102 9 180/78 (112) 99 04/30/20 01:00 97 20 162/72 (102) 99 04/30/20 01:00 20 162/72 Mechanical Ventilator 60 04/30/20 01:00 20 162/72 Mechanical Ventilator 60 04/30/20 00:30 100 14 156/77 (103) 99 04/30/20 00:00 Mechanical Ventilator 04/30/20 00:00 40 04/30/20 00:00 105 19 165/66 (99) 99 04/30/20 00:00 21 177/86 Mechanical Ventilator 60 04/30/20 00:00 19 165/66 Mechanical Ventilator 60 04/30/20 00:00 105 04/29/20 23:30 106 23 175/85 (115) 99 04/29/20 23:00 112 26 175/91 (119) 99 04/29/20 23:00 26 175/91 Mechanical Ventilator 60 04/29/20 23:00 26 175/91 Mechanical Ventilator 60 04/29/20 23:00 110 25 60 04/29/20 22:00 114 23 173/76 (108) 98 04/29/20 22:00 26 175/91 Mechanical Ventilator 60 04/29/20 22:00 23 173/76 Mechanical Ventilator 60 04/29/20 21:42 23 173/76 Mechanical Ventilator 40 04/29/20 21:42 28 145/62 Mechanical Ventilator 60 04/29/20 21:30 111 21 145/62 (89) 93 04/29/20 21:00 22 145/65 Mechanical Ventilator 40 04/29/20 21:00 22 145/65 Mechanical Ventilator 60 04/29/20 21:00 118 22 145/65 (91) 89 04/29/20 20:00 108 04/29/20 20:00 Mechanical Ventilator 04/29/20 20:00 108 23 138/79 (98) 90 04/29/20 20:00 23 138/79 Mechanical Ventilator 40 04/29/20 20:00 23 138/79 Mechanical Ventilator 60 04/29/20 20:00 40 04/29/20 19:00 20 138/65 Endotracheal Tube 40 04/29/20 19:00 20 138/65 Endotracheal Tube 40 04/29/20 19:00 83 18 138/65 (89) 92 04/29/20 19:00 87 23 40 04/29/20 18:00 91 20 133/61 (85) 92 04/29/20 18:00 18 133/61 Endotracheal Tube 40 04/29/20 18:00 20 133/61 Endotracheal Tube 40 04/29/20 17:30 82 21 115/54 (74) 93 04/29/20 17:21 88 19 40 04/29/20 17:13 23 140/64 Endotracheal Tube 40 04/29/20 17:00 18 140/64 Endotracheal Tube 40 04/29/20 17:00 18 140/64 Endotracheal Tube 40 04/29/20 17:00 101 19 140/64 (89) 87 04/29/20 16:30 52 18 93/44 (60) 94 04/29/20 16:00 40 04/29/20 16:00 53 18 97/46 (63) 94 04/29/20 16:00 Mechanical Ventilator 04/29/20 16:00 18 97/45 Endotracheal Tube 40 04/29/20 16:00 18 97/45 Endotracheal Tube 40 04/29/20 16:00 53 04/29/20 16:00 97.6 55 18 97/45 (62) 93 04/29/20 15:00 54 18 93/42 (59) 94 04/29/20 15:00 18 93/42 Endotracheal Tube 40 04/29/20 15:00 18 93/42 Endotracheal Tube 40 04/29/20 14:41 54 18 40 04/29/20 14:00 57 18 89/44 (59) 94 04/29/20 14:00 18 89/44 Endotracheal Tube 40 04/29/20 14:00 18 89/44 Endotracheal Tube 40 04/29/20 13:53 18 106/48 Endotracheal Tube 40 04/29/20 13:10 56 18 40 04/29/20 13:00 62 18 100/39 (59) 90 04/29/20 13:00 18 106/48 Endotracheal Tube 40 04/29/20 13:00 18 106/48 Endotracheal Tube 40 04/29/20 12:30 59 18 106/48 (67) 91 04/29/20 12:00 58 04/29/20 12:00 Mechanical Ventilator 04/29/20 12:00 17 130/55 Endotracheal Tube 40 04/29/20 12:00 17 130/55 Endotracheal Tube 40 04/29/20 12:00 97.7 61 17 130/55 (80) 93 04/29/20 12:00 40 04/29/20 11:29 58 18 40 I&O Intake and Output 04/29/20 04/30/20 19:00 07:00 Intake Total 1360 ml 856 ml Output Total 325 ml 830 ml Balance 1035 ml 26 ml Free Water 130 ml IV Total 890 ml 376 ml Tube Feeding 340 ml 480 ml Output Urine Total 325 ml 830 ml # Bowel Movements 1 1 Dressing: saturated Cardiovascular: RSR Respiratory: decreased breath sounds Abdomen: soft, non-tender, present bowel sounds, non-distended Extremities: no edema, no tenderness, no cyanosis Laboratory Tests Test 04/30/20 03:24 White Blood Count 8.1 K/UL (4.8-10.8) Red Blood Count 3.62 M/UL (4.70-6.10) L Hemoglobin 10.3 G/DL (14.2-18.0) L Hematocrit 33.3 % (42.0-52.0) L Mean Corpuscular Volume 92 FL (80-99) Mean Corpuscular Hemoglobin 28.4 PG (27.0-31.0) Mean Corpuscular Hemoglobin Concent 30.9 G/DL (32.0-36.0) L Red Cell Distribution Width 17.4 % (11.6-14.8) H Platelet Count 296 K/UL (150-450) Mean Platelet Volume 6.3 FL (6.5-10.1) L Neutrophils (%) (Auto) % (45.0-75.0) Lymphocytes (%) (Auto) % (20.0-45.0) Monocytes (%) (Auto) % (1.0-10.0) Eosinophils (%) (Auto) % (0.0-3.0) Basophils (%) (Auto) % (0.0-2.0) Differential Total Cells Counted 100 Neutrophils % (Manual) 89 % (45-75) H Lymphocytes % (Manual) 7 % (20-45) L Monocytes % (Manual) 4 % (1-10) Eosinophils % (Manual) 0 % (0-3) Basophils % (Manual) 0 % (0-2) Band Neutrophils 0 % (0-8) Platelet Estimate Adequate Platelet Morphology Normal Polychromasia 1+ Hypochromasia 1+ Anisocytosis 1+ Sodium Level 143 MMOL/L (136-145) Potassium Level 3.6 MMOL/L (3.5-5.1) Chloride Level 105 MMOL/L (98-107) Carbon Dioxide Level 30 MMOL/L (21-32) Anion Gap 8 mmol/L (5-15) Blood Urea Nitrogen 14 mg/dL (7-18) Creatinine 0.5 MG/DL (0.55-1.30) L Estimat Glomerular Filtration Rate > 60 mL/min (>60) Glucose Level 122 MG/DL (74-106) H Calcium Level 9.2 MG/DL (8.5-10.1) Total Bilirubin 0.4 MG/DL (0.2-1.0) Aspartate Amino Transf (AST/SGOT) 15 U/L (15-37) Alanine Aminotransferase (ALT/SGPT) 51 U/L (12-78) Alkaline Phosphatase 146 U/L (46-116) H Total Protein 6.1 G/DL (6.4-8.2) L Albumin 2.8 G/DL (3.4-5.0) L Globulin 3.3 g/dL Albumin/Globulin Ratio 0.8 (1.0-2.7) L Plan Problems: (1) Pneumonia (2) Staphylococcus aureus bacteremia (3) COVID-19 virus infection (4) Chest pain (5) Hypertension (6) Dehydration (7) Electrolyte imbalance (8) DMII (diabetes mellitus, type 2) (9) Protein malnutrition (10) Respiratory insufficiency Assessment & Plan: 64-year-old male with respiratory insufficiency intubated in an intensive care unit. Patient has been unable to safely wean off ventilatory support. Surgery called to evaluate for tracheostomy. After careful evaluation patient is a candidate for tracheostomy. In the meantime will obtain consent. If consent obtained will proceed with scheduling. Thank you for your participation's care will follow recommendations Booker Rausch Apr 30, 2020 11:17
--- NOTE | 2020-04-30 11:30 | NUR ---
NURSE NOTES: Pt. no s/sx of distress. Occasionally coughs. No grimacing noted. F/C patent/intact with good urinary output.
--- NOTE | 2020-04-30 12:19 | Nephrology Progress Note ---
Assessment/Plan Problem List: (1) Dehydration (2) Electrolyte imbalance (3) COVID-19 virus infection (4) Pneumonia (5) DMII (diabetes mellitus, type 2) (6) Protein malnutrition Assessment Azotemia, hypernatremia Hypoalbuminemia Staff Otilia bacteremia COVID-19 isolation, pneumonia, bilateral infiltrate Hypertension Diabetes mellitus History of smoking Plan April 30: Status quo. Labs reviewed. Renal parameters stable. Medication list reviewed. April 29: Status quo. Received PEG yesterday. Has trach connected to vent. FiO2 40%. Labs reviewed. Medication list reviewed. Continue same April 28: Status quo. Labs reviewed. Renal parameters stable. Patient n.p.o. due for PEG insertion. IV changed to D5 normal saline. Continue per consultants. April 27: Status quo. Labs reviewed. Medication list reviewed. Stable from renal standpoint of view. Abnormal electrolytes addressed. April 26: Patient is now trached and connected to vent. FiO2 70%. Labs reviewed. Renal parameters stable. Medication list reviewed. Continue per consultants. April 25: Status quo. Full code. FiO2 55%. No labs drawn today. Continue to monitor electrolytes and renal parameters. Continue per consultants. April 24: Status quo. Full code. Intubated on ventilator. FiO2 65%. Labs reviewed. Renal parameters and electrolytes stable. April 23: Status unchanged. Full code. Intubated on ventilator. FiO2 75%. Labs reviewed. Renal parameters stable. Continue per consultants. April 22: Labs reviewed. Patient remains intubated on ventilator and full code. FiO2 90%. Day 77 hospitalization. Not much to add from renal standpoint of view April 21: No CHEM panel drawn today. FiO2 60%. Patient full code. Continue per consultants. April 20: Labs reviewed. Renal parameters stable. Patient remains full code. Intubated on ventilator with FiO2 currently at 70%. Continue per consultants. April 19: No labs drawn today. Remains full code on FiO2 of 100%. Continue per consultants. April 18: Status quo. Labs reviewed. Renal parameters stable. April 17: Status quo. Intubated on ventilator. Full code. Labs reviewed. Electrolytes and renal parameters stable. Continue per consultants. April 16: Girlfriend in the room. Patient awake. Intubated. Full code. Labs reviewed. Abnormal electrolyte addressed. Continue per consultants. April 15: Labs reviewed. Electrolytes and renal parameters stable. Patient full code. Continues to be intubated on ventilator. April 14: Status quo. Labs reviewed. Remains intubated on ventilator. Full code. Continue per consultants. April 13: Status quo. Labs reviewed. Renal parameters electrolytes stable. Continue per current treatment plan. April 12: On higher FiO2. Will resume Lasix daily. Continue to monitor electrolytes and renal parameters. Per consultants. April 11: FiO2 went up to 85%. Renal parameters and electrolytes reasonably well-maintained. Will monitor serum potassium. Will give IV Lasix. April 10: Status quo. Labs reviewed. Remains intubated on ventilator with F iO2 of 65%. Remains full code. Stable from renal standpoint to view. Repeat vitamin D level on April 08 pending April 09: Status quo. Labs reviewed. Stable from renal standpoint of view. Continue per consultants. April 08: Discussed with RN. Labs reviewed. Clinically improving. Requires lower PEEP. Continue per pulmonary. Continue to monitor renal parameters. April 07: Remains full code and on ventilator. Labs reviewed. Renal parameters and electrolytes stable. Continue per consultants. Blood pressure marginally improved. April 06: Full code. On ventilator. Blood pressure 80-90 systolic. IV Lasix discontinued. Free water through tube feeding ordered. Continue to monitor electrolytes and serum sodium. Down on fentanyl as possible. Discussed with PRIYANKA Brown. Clonidine patch discontinued. April 05: Status quo. Remains full code. Remains intubated. Labs reviewed. Renal parameters stable. Serum sodium 150 unchanged. Continue per consultants. April 04: Remains intubated and on ventilator. Remains full code. Labs reviewed. Serum sodium 150 unchanged. Renal parameters stable. Continue per ID and pulmonary. April 03: Intubated. On ventilator. Full code. Labs reviewed. Serum sodium 150 unchanged. Continue to monitor renal parameters. Continue per pulmonary and ID. April 02: Full code. On ventilator. Discussed with RN. Serum sodium slight ly higher. Will cut down on IV Lasix. Continue per consultants. Continue to monitor renal parameters and electrolytes. April 01: Full code. Remains on ventilator. Labs reviewed. Stable from renal standpoint of view. Continue per consultants. March 31: Full code . Remains intubated on ventilator. Labs reviewed. Patient appears toxic. Discussed with RN. Maintenance IV discontinued. Medication list reviewed. Blood pressure medication stopped due to low blood pressure. Levemir insulin stopped. Continue monitor blood sugar and sliding scale insulin. March 30: Full code. On ventilator. Labs reviewed. Clonidine patch dose increased. Lasix increased. 3% saline 1 time ordered. Continue to monitor electrolytes and renal parameters. March 29: Remains full code. On mechanical ventilation. On tube feeding. Will DC TPN. Will start on maintenance IV fluid. Continue to monitor renal parameters. March 28: On BiPAP. Full code. On TPN. Labs reviewed. Discussed with pharmacy. Continue as is. Watch serum potassium. March 27: Remains on BiPAP. No chemistry panel done today. Full code. On TPN. Will check lab tomorrow. March 26: Remains on BiPAP. Remains on TPN. Labs reviewed. Electrolytes and chemistries within normal limits. Continue as is. March 25: Remains on TPN. Labs reviewed. Discussed with pharmacy. Change IV Protonix to p.o. Continue 3% saline infusion with Lasix. Patient full code. March 24: Continue to be on TPN. Labs are reviewed. Aim to collect electrolytes. Discussed with pharmacy. Continue current consultants. March 23: Continues to be on TPN. Labs reviewed. Electrolytes and chemistries all acceptable. Discussed with pharmacy. Continue current management. March 22: On TPN. Labs reviewed. Low sodium noted. 3% saline to be continued. Continue to monitor electrolytes. Discussed with pharmacy. March 21: On TPN. Labs reviewed. Continue 3% saline and Lasix for mild hyponatremia. Continue TPN as these. Discussed with pharmacy. March 20: Remains on TPN. Labs reviewed. Serum sodium higher on IV Lasix and 3% saline infusion. Continue TPN as is. Continue to monitor renal parameters and electrolytes. Discussed with Dr. Mata March 19: Remains on TPN. Labs reviewed. Serum sodium 128. Will give 3% saline with IV Lasix. Continue to monitor electrolytes. No change in TPN composition. Discussed with pharmacy. March 18: Remains on TPN. Labs reviewed. Discussed with pharmacist. Will give 3 doses of IV Lasix 20 mg every 8 hours. Continue to monitor serum sodium electrolytes uric acid. White blood cells down. Continue per consultants. March 17: On TPN. Labs reviewed. Discussed with pharmacist. Sodium content increase. Continue to monitor CMP. Patient continues to have leukocytosis. March 16: On TPN. Labs reviewed. Discussed with pharmacist. Appropriate changes made. Continue to monitor electrolytes. March 15: Remains on TPN. Labs reviewed. Discussed with pharmacist. Continue per current management. March 14: Remains on TPN. Labs reviewed, stable. Vitamin D level low, replacement ordered. Continue to monitor electrolytes and renal parameters. March 13: Patient remains on TPN. Discussed with pharmacist. TPN's sodium content adjusted. Labs reviewed. Continue to monitor electrolytes. Blood pressure remains stable. Continue per consultants. March 12: Patient on TPN. Labs reviewed. CPK remains elevated. Abnormal electrolytes and high blood sugar discussed with pharmacist and TPN adjusted. Continue to monitor labs. Oral Protonix added. Ibuprofen discontinued. Can continue to monitor electrolytes and chemistries. Levemir for high blood sugar added. March 11: Patient on TPN. Labs as of 11:15 AM is still pending. Continue per current treatment plan. Will check labs and adjust TPN as needed. Continue per consultants. March 10: Patient on TPN. Labs reviewed. Electrolytes overall stable. CPK is elevated. Will monitor electrolyte, CPK level, lipid panel. Continue per consultants. Discussed with pharmacist. Discussed with RN. Nutritional evaluation noted. Previously: D5W 100 cc an hour Monitor electrolytes renal parameters TPN and Intralipid ordered Will follow Continue per consultants Dietary consult requested Subjective ROS Limited/Unobtainable: Yes Objective Objective Last 24 Hour Vital Signs Date Time Temp Pulse Resp B/P (MAP) Pulse Ox O2 Delivery O2 Flow Rate FiO2 04/30/20 12:00 60 04/30/20 12:00 Mechanical Ventilator 04/30/20 12:00 95 18 177/88 (117) 98 04/30/20 11:00 94 18 184/94 (124) 99 04/30/20 10:00 20 186/93 Mechanical Ventilator 60 04/30/20 10:00 20 186/93 Mechanical Ventilator 60 04/30/20 10:00 94 20 186/93 (124) 99 04/30/20 09:00 98.1 91 17 180/126 (144) 99 04/30/20 09:00 17 180/126 Mechanical Ventilator 60 04/30/20 09:00 17 180/126 Mechanical Ventilator 60 04/30/20 08:25 100 22 60 04/30/20 08:12 22 170/106 Mechanical Ventilator 15.0 60 04/30/20 08:00 100 20 170/106 (127) 98 04/30/20 08:00 60 04/30/20 08:00 20 170/106 Mechanical Ventilator 60 04/30/20 08:00 Mechanical Ventilator 04/30/20 07:32 109 04/30/20 07:29 30 187/116 Mechanical Ventilator 60 04/30/20 07:21 23 187/116 Mechanical Ventilator 60 04/30/20 07:20 19 175/91 Mechanical Ventilator 60 04/30/20 07:09 91 21 60 04/30/20 07:00 20 185/105 Mechanical Ventilator 60 04/30/20 07:00 93 20 185/105 (131) 98 04/30/20 06:00 19 185/100 Mechanical Ventilator 60 04/30/20 06:00 19 185/100 Mechanical Ventilator 60 04/30/20 06:00 98 18 180/84 (116) 99 04/30/20 05:00 16 194/91 Mechanical Ventilator 60 04/30/20 05:00 16 194/91 Mechanical Ventilator 60 04/30/20 05:00 102 17 183/89 (120) 99 04/30/20 04:30 94 12 173/90 (117) 99 04/30/20 04:00 16 169/81 Mechanical Ventilator 60 04/30/20 04:00 16 169/81 Mechanical Ventilator 60 04/30/20 04:00 Mechanical Ventilator 04/30/20 04:00 102 13 182/83 (116) 98 04/30/20 04:00 60 04/30/20 04:00 98 04/30/20 03:00 19 184/71 Mechanical Ventilator 60 04/30/20 03:00 19 184/71 Mechanical Ventilator 60 04/30/20 03:00 113 19 184/71 (108) 97 04/30/20 02:48 119 24 60 04/30/20 02:30 119 21 206/86 (126) 97 04/30/20 02:00 119 20 177/86 (116) 98 04/30/20 02:00 20 177/86 Mechanical Ventilator 60 04/30/20 02:00 20 177/86 Mechanical Ventilator 60 04/30/20 01:30 102 9 180/78 (112) 99 04/30/20 01:00 97 20 162/72 (102) 99 04/30/20 01:00 20 162/72 Mechanical Ventilator 60 04/30/20 01:00 20 162/72 Mechanical Ventilator 60 04/30/20 00:30 100 14 156/77 (103) 99 04/30/20 00:00 Mechanical Ventilator 04/30/20 00:00 40 04/30/20 00:00 105 19 165/66 (99) 99 04/30/20 00:00 21 177/86 Mechanical Ventilator 60 04/30/20 00:00 19 165/66 Mechanical Ventilator 60 04/30/20 00:00 105 04/29/20 23:30 106 23 175/85 (115) 99 04/29/20 23:00 112 26 175/91 (119) 99 04/29/20 23:00 26 175/91 Mechanical Ventilator 60 04/29/20 23:00 26 175/91 Mechanical Ventilator 60 04/29/20 23:00 110 25 60 04/29/20 22:00 114 23 173/76 (108) 98 04/29/20 22:00 26 175/91 Mechanical Ventilator 60 04/29/20 22:00 23 173/76 Mechanical Ventilator 60 04/29/20 21:42 23 173/76 Mechanical Ventilator 40 04/29/20 21:42 28 145/62 Mechanical Ventilator 60 04/29/20 21:30 111 21 145/62 (89) 93 04/29/20 21:00 22 145/65 Mechanical Ventilator 40 04/29/20 21:00 22 145/65 Mechanical Ventilator 60 04/29/20 21:00 118 22 145/65 (91) 89 04/29/20 20:00 108 04/29/20 20:00 Mechanical Ventilator 04/29/20 20:00 108 23 138/79 (98) 90 04/29/20 20:00 23 138/79 Mechanical Ventilator 40 04/29/20 20:00 23 138/79 Mechanical Ventilator 60 04/29/20 20:00 40 04/29/20 19:00 20 138/65 Endotracheal Tube 40 04/29/20 19:00 20 138/65 Endotracheal Tube 40 04/29/20 19:00 83 18 138/65 (89) 92 04/29/20 19:00 87 23 40 04/29/20 18:00 91 20 133/61 (85) 92 04/29/20 18:00 18 133/61 Endotracheal Tube 40 04/29/20 18:00 20 133/61 Endotracheal Tube 40 04/29/20 17:30 82 21 115/54 (74) 93 04/29/20 17:21 88 19 40 04/29/20 17:13 23 140/64 Endotracheal Tube 40 04/29/20 17:00 18 140/64 Endotracheal Tube 40 04/29/20 17:00 18 140/64 Endotracheal Tube 40 04/29/20 17:00 101 19 140/64 (89) 87 04/29/20 16:30 52 18 93/44 (60) 94 04/29/20 16:00 40 04/29/20 16:00 53 18 97/46 (63) 94 04/29/20 16:00 Mechanical Ventilator 04/29/20 16:00 18 97/45 Endotracheal Tube 40 04/29/20 16:00 18 97/45 Endotracheal Tube 40 04/29/20 16:00 53 04/29/20 16:00 97.6 55 18 97/45 (62) 93 04/29/20 15:00 54 18 93/42 (59) 94 04/29/20 15:00 18 93/42 Endotracheal Tube 40 04/29/20 15:00 18 93/42 Endotracheal Tube 40 04/29/20 14:41 54 18 40 04/29/20 14:00 57 18 89/44 (59) 94 04/29/20 14:00 18 89/44 Endotracheal Tube 40 04/29/20 14:00 18 89/44 Endotracheal Tube 40 04/29/20 13:53 18 106/48 Endotracheal Tube 40 04/29/20 13:10 56 18 40 04/29/20 13:00 62 18 100/39 (59) 90 04/29/20 13:00 18 106/48 Endotracheal Tube 40 04/29/20 13:00 18 106/48 Endotracheal Tube 40 04/29/20 12:30 59 18 106/48 (67) 91 Intake and Output 04/29/20 04/30/20 19:00 07:00 Intake Total 1360 ml 856 ml Output Total 325 ml 830 ml Balance 1035 ml 26 ml Free Water 130 ml IV Total 890 ml 376 ml Tube Feeding 340 ml 480 ml Output Urine Total 325 ml 830 ml # Bowel Movements 1 1 Current Medications Medications (Trade) Dose Ordered Sig/Dennis Route PRN Reason Start Time Stop Time Status Last Admin Dose Admin Acetaminophen (Tylenol) 650 mg Q4H PRN ORAL Temp >100.5 04/13/20 00:30 05/13/20 00:29 04/28/20 20:49 Chlorhexidine Gluconate (Marlen-Hex 2%) 1 applic DAILY@2000 TOPIC 03/30/20 20:00 06/28/20 19:59 04/29/20 20:29 Dextrose (Dextrose 50%) 25 ml Q30M PRN IV Hypoglycemia 03/29/20 20:45 06/27/20 20:44 Dextrose (Dextrose 50%) 50 ml Q30M PRN IV Hypoglycemia 03/29/20 20:45 06/27/20 20:44 Enoxaparin Sodium (Lovenox) 80 mg EVERY 12 HOURS SUBQ 04/06/20 21:00 07/05/20 20:59 04/30/20 09:29 Fentanyl Citrate 250 ml @ 1 mls/hr Q24H PRN IV SEDATION 04/30/20 07:30 05/01/20 23:44 04/30/20 07:29 Hydralazine HCl (Apresoline) 10 mg Q4H PRN IV For High Blood Pressure 03/30/20 12:15 06/28/20 12:14 04/29/20 05:53 Insulin Aspart (NovoLOG) Q6HR SUBQ 03/30/20 00:00 06/28/20 00:00 04/28/20 17:48 Lansoprazole (Prevacid) 15 mg Q12HR GT 04/20/20 21:00 05/20/20 20:59 04/30/20 09:25 Methylprednisolone Sodium Succinate (Solu-MEDROL) 20 mg Q12HR IVP 04/12/20 21:00 06/20/20 20:59 04/30/20 09:26 Midazolam HCl 200 ml @ 0 mls/hr Q24H PRN IV SEDATION 04/25/20 01:00 05/02/20 00:29 04/30/20 08:12 Quetiapine Fumarate (SEROqueL) 50 mg EVERY 8 HOURS ORAL 04/29/20 12:00 06/11/20 11:59 04/30/20 06:42 Trimethoprim/ Sulfamethoxazole (Bactrim-DS) 1 tab DAILY ORAL 04/30/20 09:00 05/07/20 08:59 04/30/20 09:26 Laboratory Tests 04/30/20 03:24: White Blood Count 8.1, Red Blood Count 3.62L, Hemoglobin 10.3L, Hematocrit 33.3L , Mean Corpuscular Volume 92, Mean Corpuscular Hemoglobin 28.4, Mean Corpuscular Hemoglobin Concent 30.9L, Red Cell Distribution Width 17.4H, Platelet Count 296, Mean Platelet Volume 6.3L, Neutrophils (%) (Auto) , Lymphocytes (%) (Auto) , Monocytes (%) (Auto) , Eosinophils (%) (Auto) , Basophils (%) (Auto) , Differential Total Cells Counted 100, Neutrophils % (Manual) 89H, Lymphocytes % (Manual) 7L, Monocytes % (Manual) 4, Eosinophils % (Manual) 0, Basophils % (Manual) 0, Band Neutrophils 0, Platelet Estimate Adequate, Platelet Morphology Normal, Polychromasia 1+, Hypochromasia 1+, Anisocytosis 1+, Sodium Level 143, Potassium Level 3.6, Chloride Level 105, Carbon Dioxide Level 30, Anion Gap 8, Blood Urea Nitrogen 14, Creatinine 0.5L, Estimat Glomerular Filtration Rate > 60, Glucose Level 122H, Calcium Level 9.2, Total Bilirubin 0.4, Aspartate Amino Transf (AST/SGOT) 15, Alanine Aminotransferase (ALT/SGPT) 51, Alkaline Phosphatase 146H, Total Protein 6.1L, Albumin 2.8L, Globulin 3.3, Albumin/Globulin Ratio 0.8L Height (Feet): 5 Height (Inches): 10.00 Weight (Pounds): 243 General Appearance: no apparent distress EENT: other - Trach to vent Cardiovascular: tachycardia Respiratory/Chest: decreased breath sounds Abdomen: other - PEG Rubin Cooper MD Apr 30, 2020 12:19
--- NOTE | 2020-04-30 12:20 | NUR ---
NURSE NOTES: Seen by Isis Kelly and told RN the will try to d/c tomorrow if stable to go to [facility].
--- NOTE | 2020-04-30 14:15 | NUR ---
NURSE NOTES: Seen by Dr. Cooper with labs in a.m ordered.
--- NOTE | 2020-04-30 16:16 | NUR ---
NURSE NOTES: Gave pt. sponge bath with huge bowel movement. No diarrhea.
--- NOTE | 2020-04-30 18:50 | General Progress Note ---
Subjective Allergies: Coded Allergies: No Known Allergies (Unverified , 02/05/20) Subjective above noted calm, on vent tolerating TF d/w RN Objective Last 24 Hour Vital Signs Date Time Temp Pulse Resp B/P (MAP) Pulse Ox O2 Delivery O2 Flow Rate FiO2 04/30/20 18:13 16 180/111 Mechanical Ventilator 15.0 60 04/30/20 18:00 114 16 180/111 (134) 99 04/30/20 18:00 16 180/111 Mechanical Ventilator 60 04/30/20 18:00 16 180/111 Mechanical Ventilator 60 04/30/20 17:47 106 22 60 04/30/20 17:00 107 16 146/94 (111) 99 04/30/20 17:00 16 146/94 Mechanical Ventilator 60 04/30/20 17:00 16 146/94 Mechanical Ventilator 60 04/30/20 16:00 18 153/87 Mechanical Ventilator 60 04/30/20 16:00 18 153/87 Mechanical Ventilator 60 04/30/20 16:00 101 18 153/87 (109) 100 04/30/20 16:00 60 04/30/20 16:00 Mechanical Ventilator 04/30/20 16:00 125 04/30/20 15:08 108 19 60 04/30/20 15:00 110 22 154/88 (110) 94 04/30/20 15:00 20 150/82 Mechanical Ventilator 60 04/30/20 15:00 20 150/82 Mechanical Ventilator 60 04/30/20 14:00 97.9 122 22 200/108 (138) 94 04/30/20 14:00 22 154/88 Mechanical Ventilator 60 04/30/20 14:00 22 154/88 Mechanical Ventilator 60 04/30/20 13:20 106 23 60 04/30/20 13:00 22 200/108 Mechanical Ventilator 60 04/30/20 13:00 22 200/108 Mechanical Ventilator 60 04/30/20 13:00 94 18 176/104 (128) 98 04/30/20 12:00 60 04/30/20 12:00 18 177/88 Mechanical Ventilator 60 04/30/20 12:00 18 177/88 Mechanical Ventilator 60 04/30/20 12:00 98 04/30/20 12:00 Mechanical Ventilator 04/30/20 12:00 95 18 177/88 (117) 98 04/30/20 11:05 120 24 60 04/30/20 11:00 94 18 184/94 (124) 99 04/30/20 11:00 18 184/94 Mechanical Ventilator 60 04/30/20 11:00 18 184/94 Mechanical Ventilator 60 04/30/20 10:00 20 186/93 Mechanical Ventilator 60 04/30/20 10:00 20 186/93 Mechanical Ventilator 60 04/30/20 10:00 94 20 186/93 (124) 99 04/30/20 09:00 98.1 91 17 180/126 (144) 99 04/30/20 09:00 17 180/126 Mechanical Ventilator 60 04/30/20 09:00 17 180/126 Mechanical Ventilator 60 04/30/20 08:25 100 22 60 04/30/20 08:12 22 170/106 Mechanical Ventilator 15.0 60 04/30/20 08:00 100 20 170/106 (127) 98 04/30/20 08:00 60 04/30/20 08:00 20 170/106 Mechanical Ventilator 60 04/30/20 08:00 Mechanical Ventilator 04/30/20 07:32 109 04/30/20 07:29 30 187/116 Mechanical Ventilator 60 04/30/20 07:21 23 187/116 Mechanical Ventilator 60 04/30/20 07:20 19 175/91 Mechanical Ventilator 60 04/30/20 07:09 91 21 60 04/30/20 07:00 20 185/105 Mechanical Ventilator 60 04/30/20 07:00 93 20 185/105 (131) 98 04/30/20 06:00 19 185/100 Mechanical Ventilator 60 04/30/20 06:00 19 185/100 Mechanical Ventilator 60 04/30/20 06:00 98 18 180/84 (116) 99 04/30/20 05:00 16 194/91 Mechanical Ventilator 60 04/30/20 05:00 16 194/91 Mechanical Ventilator 60 04/30/20 05:00 102 17 183/89 (120) 99 04/30/20 04:30 94 12 173/90 (117) 99 04/30/20 04:00 16 169/81 Mechanical Ventilator 60 04/30/20 04:00 16 169/81 Mechanical Ventilator 60 04/30/20 04:00 Mechanical Ventilator 04/30/20 04:00 102 13 182/83 (116) 98 04/30/20 04:00 60 04/30/20 04:00 98 04/30/20 03:00 19 184/71 Mechanical Ventilator 60 04/30/20 03:00 19 184/71 Mechanical Ventilator 60 04/30/20 03:00 113 19 184/71 (108) 97 04/30/20 02:48 119 24 60 04/30/20 02:30 119 21 206/86 (126) 97 04/30/20 02:00 119 20 177/86 (116) 98 04/30/20 02:00 20 177/86 Mechanical Ventilator 60 04/30/20 02:00 20 177/86 Mechanical Ventilator 60 04/30/20 01:30 102 9 180/78 (112) 99 04/30/20 01:00 97 20 162/72 (102) 99 04/30/20 01:00 20 162/72 Mechanical Ventilator 60 04/30/20 01:00 20 162/72 Mechanical Ventilator 60 04/30/20 00:30 100 14 156/77 (103) 99 04/30/20 00:00 Mechanical Ventilator 04/30/20 00:00 40 04/30/20 00:00 105 19 165/66 (99) 99 04/30/20 00:00 21 177/86 Mechanical Ventilator 60 04/30/20 00:00 19 165/66 Mechanical Ventilator 60 04/30/20 00:00 105 04/29/20 23:30 106 23 175/85 (115) 99 04/29/20 23:00 112 26 175/91 (119) 99 04/29/20 23:00 26 175/91 Mechanical Ventilator 60 04/29/20 23:00 26 175/91 Mechanical Ventilator 60 04/29/20 23:00 110 25 60 04/29/20 22:00 114 23 173/76 (108) 98 04/29/20 22:00 26 175/91 Mechanical Ventilator 60 04/29/20 22:00 23 173/76 Mechanical Ventilator 60 04/29/20 21:42 23 173/76 Mechanical Ventilator 40 04/29/20 21:42 28 145/62 Mechanical Ventilator 60 04/29/20 21:30 111 21 145/62 (89) 93 04/29/20 21:00 22 145/65 Mechanical Ventilator 40 04/29/20 21:00 22 145/65 Mechanical Ventilator 60 04/29/20 21:00 118 22 145/65 (91) 89 04/29/20 20:00 108 04/29/20 20:00 Mechanical Ventilator 04/29/20 20:00 108 23 138/79 (98) 90 04/29/20 20:00 23 138/79 Mechanical Ventilator 40 04/29/20 20:00 23 138/79 Mechanical Ventilator 60 04/29/20 20:00 40 04/29/20 19:00 20 138/65 Endotracheal Tube 40 04/29/20 19:00 20 138/65 Endotracheal Tube 40 04/29/20 19:00 83 18 138/65 (89) 92 04/29/20 19:00 87 23 40 Intake and Output 04/29/20 04/30/20 19:00 07:00 Intake Total 1360 ml 856 ml Output Total 325 ml 830 ml Balance 1035 ml 26 ml Free Water 130 ml IV Total 890 ml 376 ml Tube Feeding 340 ml 480 ml Output Urine Total 325 ml 830 ml # Bowel Movements 1 1 Laboratory Tests 04/30/20 03:24: White Blood Count 8.1, Red Blood Count 3.62L, Hemoglobin 10.3L, Hematocrit 33.3L , Mean Corpuscular Volume 92, Mean Corpuscular Hemoglobin 28.4, Mean Corpuscular Hemoglobin Concent 30.9L, Red Cell Distribution Width 17.4H, Platelet Count 296, Mean Platelet Volume 6.3L, Neutrophils (%) (Auto) , Lymphocytes (%) (Auto) , Monocytes (%) (Auto) , Eosinophils (%) (Auto) , Basophils (%) (Auto) , Differential Total Cells Counted 100, Neutrophils % (Manual) 89H, Lymphocytes % (Manual) 7L, Monocytes % (Manual) 4, Eosinophils % (Manual) 0, Basophils % (Manual) 0, Band Neutrophils 0, Platelet Estimate Adequate, Platelet Morphology Normal, Polychromasia 1+, Hypochromasia 1+, Anisocytosis 1+, Sodium Level 143, Potassium Level 3.6, Chloride Level 105, Carbon Dioxide Level 30, Anion Gap 8, Blood Urea Nitrogen 14, Creatinine 0.5L, Estimat Glomerular Filtration Rate > 60, Glucose Level 122H, Calcium Level 9.2, Total Bilirubin 0.4, Aspartate Amino Transf (AST/SGOT) 15, Alanine Aminotransferase (ALT/SGPT) 51, Alkaline P hosphatase 146H, Total Protein 6.1L, Albumin 2.8L, Globulin 3.3, Albumin/Globulin Ratio 0.8L Height (Feet): 5 Height (Inches): 10.00 Weight (Pounds): 243 Objective Patient seen in ICU on vent tolerating TF NCAT neck (+) trach coarse BS RR abd soft ND (+) PEG (+) LE edema Assessment/Plan Status: not improved, unchanged Assessment/Plan: Assessment: Dysphagia - s/p PEG COVID PNA, Resp failure - s/p Trach DM Abnormal LFT -- COVID Hepatitis C Ab (+), PCR (-) Anemia Low albumin Recommendations Continue GT feeds elevated HOB follow labs Add protein supplements Kourtney Davila MD Apr 30, 2020 18:50
--- NOTE | 2020-04-30 19:21 | NUR ---
NURSE HAND-OFF REPORT: Latest Vital Signs: Temperature 97.9 , Pulse 114 , B/P 180 /111 , Respiratory Rate 16 , O2 SAT 99 , Mechanical Ventilator, O2 Flow Rate 15.0 . Vital Sign Comment: elevated due to constantly pt. moving his arm. EKG Rhythm: Sinus Tachycardia Rhythm change?: N Notified?: N Grecia INTERIANO Response: Message left await call Latest Hassan Fall Score: 50 Fall Risk: High Risk Safety Measures: Call light Within Reach, Bed Alarm Zone 3, Side Rails Side Rails x3, Bed position Low and Locked. Fall Precautions: Yellow Socks Yellow Gown Door Sign Patient Fall Education Report given to Gwen MATHEW.
[2020-04-30] MEDS: Dyna-Hex 2% Top Sol 2oz TOPIC SCH (20:39)
[2020-05-01] VITALS (71 sets, daily range): BP systolic 111–181; BP diastolic 63–122
[2020-05-01] MEDS: fentaNYL 2500mcg/NS 250ml 250 ML IV PRN ×2 (04:59→15:43)
[2020-05-01 05:35] LABS: HEMATOCRIT 30.5 % (42.0-52.0); HEMOGLOBIN 9.6 G/DL (14.2-18.0); MEAN CORPUSCULAR VOLUME 91 FL (80-99); PLATELET COUNT 297 K/UL (150-450); RED BLOOD COUNT 3.36 M/UL (4.70-6.10); RED CELL DISTRIBUTION WIDTH 16.9 % (11.6-14.8); WHITE BLOOD COUNT 7.8 K/UL (4.8-10.8)
[2020-05-01 05:45] LABS: ANION GAP 9 mmol/L (5-15); BLOOD UREA NITROGEN 11 mg/dL (7-18); CALCIUM 8.8 MG/DL (8.5-10.1); CARBON DIOXIDE 31 MMOL/L (21-32); CHLORIDE 106 MMOL/L (98-107); CREATININE 0.3 MG/DL (0.55-1.30); POTASSIUM 3.8 MMOL/L (3.5-5.1); SODIUM 146 MMOL/L (136-145)
[2020-05-01] MEDS: NovoLOG Insulin Flexpen SUBQ SCH ×4 (06:00→18:00)
--- NOTE | 2020-05-01 07:10 | NUR ---
RESPIRATORY NOTE: PT received on AC/VC: 18, 750, +5, 50% FiO2. Pt is trached with a cuffed Shiley #8 tracheostomy tube. Alarms are on and audible. Vent is plugged into red outlet. Airway is secure and patent. No s/s of respiratory distress noted at this time. Will continue to closely monitor.
[2020-05-01] MEDS: VERSED IV PRN ×2 (07:23→18:00)
[2020-05-01] MEDS: [UNRECOGNIZED DRUG - OTHER] IV PRN ×2 (07:23→18:00)
--- NOTE | 2020-05-01 07:36 | General Progress Note ---
Subjective ROS Limited/Unobtainable: No Allergies: Coded Allergies: No Known Allergies (Unverified , 02/05/20) Objective Last 24 Hour Vital Signs Date Time Temp Pulse Resp B/P (MAP) Pulse Ox O2 Delivery O2 Flow Rate FiO2 05/01/20 07:23 19 181/122 50 05/01/20 06:30 90 21 138/100 (113) 95 05/01/20 06:15 86 15 156/81 (106) 98 05/01/20 06:00 86 19 158/88 (111) 98 05/01/20 05:30 19 153/89 45 05/01/20 05:24 77 22 45 05/01/20 05:00 87 19 153/89 (110) 94 05/01/20 05:00 19 153/89 Mechanical Ventilator 45 05/01/20 04:59 18 134/91 Mechanical Ventilator 40 05/01/20 04:59 25 175/68 Mechanical Ventilator 45 05/01/20 04:30 90 20 153/122 (132) 94 05/01/20 04:00 Mechanical Ventilator 05/01/20 04:00 50 05/01/20 04:00 86 18 147/86 (106) 97 05/01/20 04:00 86 05/01/20 03:30 89 17 143/81 (101) 96 05/01/20 03:25 86 22 45 05/01/20 03:00 102 22 143/94 (110) 92 05/01/20 02:30 99 20 154/100 (118) 94 05/01/20 02:00 103 18 161/90 (113) 94 05/01/20 01:20 98 22 45 05/01/20 01:00 91 18 134/91 (105) 99 05/01/20 00:30 93 17 133/83 (100) 98 05/01/20 00:00 107 05/01/20 00:00 Mechanical Ventilator 05/01/20 00:00 107 16 130/78 (95) 90 05/01/20 00:00 16 130/78 Mechanical Ventilator 50 05/01/20 00:00 16 130/78 Mechanical Ventilator 50 04/30/20 23:30 96 19 133/76 (95) 96 04/30/20 23:08 100 20 45 04/30/20 23:00 17 131/78 Mechanical Ventilator 50 04/30/20 23:00 17 131/78 Mechanical Ventilator 50 04/30/20 23:00 98 17 131/78 (95) 96 04/30/20 22:00 17 131/78 Mechanical Ventilator 50 04/30/20 22:00 17 150/91 Mechanical Ventilator 50 04/30/20 22:00 105 17 150/91 (110) 98 04/30/20 21:30 104 18 178/105 (129) 99 04/30/20 21:15 102 21 50 04/30/20 21:00 17 148/84 Mechanical Ventilator 50 04/30/20 21:00 18 148/84 50 04/30/20 21:00 104 18 148/84 (105) 98 04/30/20 20:30 116 24 187/111 (136) 97 04/30/20 20:00 Mechanical Ventilator 04/30/20 20:00 105 21 149/94 (112) 96 04/30/20 20:00 21 149/94 Mechanical Ventilator 50 04/30/20 20:00 21 149/94 Mechanical Ventilator 50 04/30/20 20:00 50 04/30/20 19:30 110 24 50 04/30/20 19:30 116 24 174/95 (121) 92 04/30/20 19:00 24 174/95 Mechanical Ventilator 50 04/30/20 19:00 24 174/95 Mechanical Ventilator 50 04/30/20 19:00 116 21 188/104 (132) 99 04/30/20 18:13 16 180/111 Mechanical Ventilator 15.0 60 04/30/20 18:00 114 16 180/111 (134) 99 04/30/20 18:00 16 180/111 Mechanical Ventilator 60 04/30/20 18:00 16 180/111 Mechanical Ventilator 60 04/30/20 17:47 106 22 60 04/30/20 17:00 107 16 146/94 (111) 99 04/30/20 17:00 16 146/94 Mechanical Ventilator 60 04/30/20 17:00 16 146/94 Mechanical Ventilator 60 04/30/20 16:00 18 153/87 Mechanical Ventilator 60 04/30/20 16:00 18 153/87 Mechanical Ventilator 60 04/30/20 16:00 101 18 153/87 (109) 100 04/30/20 16:00 60 04/30/20 16:00 Mechanical Ventilator 04/30/20 16:00 125 04/30/20 15:08 108 19 60 04/30/20 15:00 110 22 154/88 (110) 94 04/30/20 15:00 20 150/82 Mechanical Ventilator 60 04/30/20 15:00 20 150/82 Mechanical Ventilator 60 04/30/20 14:00 97.9 122 22 200/108 (138) 94 04/30/20 14:00 22 154/88 Mechanical Ventilator 60 04/30/20 14:00 22 154/88 Mechanical Ventilator 60 04/30/20 13:20 106 23 60 04/30/20 13:00 22 200/108 Mechanical Ventilator 60 04/30/20 13:00 22 200/108 Mechanical Ventilator 60 04/30/20 13:00 94 18 176/104 (128) 98 04/30/20 12:00 60 04/30/20 12:00 18 177/88 Mechanical Ventilator 60 04/30/20 12:00 18 177/88 Mechanical Ventilator 60 04/30/20 12:00 98 04/30/20 12:00 Mechanical Ventilator 04/30/20 12:00 95 18 177/88 (117) 98 04/30/20 11:05 120 24 60 04/30/20 11:00 94 18 184/94 (124) 99 04/30/20 11:00 18 184/94 Mechanical Ventilator 60 04/30/20 11:00 18 184/94 Mechanical Ventilator 60 04/30/20 10:00 20 186/93 Mechanical Ventilator 60 04/30/20 10:00 20 186/93 Mechanical Ventilator 60 04/30/20 10:00 94 20 186/93 (124) 99 04/30/20 09:00 98.1 91 17 180/126 (144) 99 04/30/20 09:00 17 180/126 Mechanical Ventilator 60 04/30/20 09:00 17 180/126 Mechanical Ventilator 60 04/30/20 08:25 100 22 60 04/30/20 08:12 22 170/106 Mechanical Ventilator 15.0 60 04/30/20 08:00 100 20 170/106 (127) 98 04/30/20 08:00 60 04/30/20 08:00 20 170/106 Mechanical Ventilator 60 04/30/20 08:00 Mechanical Ventilator Intake and Output 04/30/20 05/01/20 19:00 07:00 Intake Total 1100 ml 812.5 ml Output Total 1310 ml Balance -210 ml 812.5 ml Free Water 200 ml IV Total 420 ml 372.5 ml Tube Feeding 480 ml 440 ml Output Urine Total 1310 ml # Bowel Movements 1 Laboratory Tests 05/01/20 00:27: POC Whole Blood Glucose 143H 05/01/20 03:48: White Blood Count 7.8, Red Blood Count 3.36L, Hemoglobin 9.6L, Hematocrit 30.5L, Mean Corpuscular Volume 91, Mean Corpuscular Hemoglobin 28.5, Mean Corpuscular Hemoglobin Concent 31.3L, Red Cell Distribution Width 16.9H, Platelet Count 297, Mean Platelet Volume 6.1L, Neutrophils (%) (Auto) , Lymphocytes (%) (Auto) , Monocytes (%) (Auto) , Eosinophils (%) (Auto) , Basophils (%) (Auto) , Sodium Level 146H, Potassium Level 3.8, Chloride Level 106, Carbon Dioxide Level 31, Anion Gap 9, Blood Urea Nitrogen 11, Creatinine 0.3L, Estimat Glomerular Filtration Rate > 60, Glucose Level 139H, Calcium Level 8.8 05/01/20 06:43: POC Whole Blood Glucose [Pending] Height (Feet): 5 Height (Inches): 10.00 Weight (Pounds): 243 General Appearance: no apparent distress EENT: normal ENT inspection Neck: supple Cardiovascular: normal rate Respiratory/Chest: decreased breath sounds Abdomen: hypoactive bowel sounds Extremities: non-tender Assessment/Plan Status: not improved, unchanged Assessment/Plan: hep c + but neg RNA GTF reglan 10 mg tolerating TF repeat labs fu LFTS>>>improving will Da Wilson MD May 01, 2020 07:36
[2020-05-01] MEDS: Lansoprazole 15mg cap GT SCH ×2 (07:45→21:00)
[2020-05-01] MEDS: Solu-MEDROL 40mg Inj IVP SCH ×2 (07:46→21:21)
[2020-05-01] MEDS: Bactrim-DS 1 tab ORAL SCH (07:46)
[2020-05-01] MEDS: Enoxaparin 80mg Inj SUBQ SCH ×2 (07:47→21:21)
--- NOTE | 2020-05-01 09:25 | NUR ---
RD ASSESSMENT & RECOMMENDATIONS SEE CARE ACTIVITY FOR COMPLETE ASSESSMENT DAILY ESTIMATED NEEDS: Needs based on Critical care, wound 81kg abw 22-28 kcals/kg 8786-3103 total kcals 1.25-1.5 g protein/kg 101-122 g total protein 25-30 mL/kg 3551-7906 total fluid mLs NUTRITION DIAGNOSIS: * Inadequate oral intake R/T clinical and respiratory status as evidenced by COVID-19 ++, on continuous BIPAP, prolonged meal refusals, pt is now on TPN, pt orally intubated (03/28), s/p trach placement (04/26), and s/p PEG placement (04/27), now on GT feeds. * Decreased sodium and fat needs r/t HTN and obesity as evidenced by pt w/ cardiac history, elev BP (159/98-> now improved, on BP meds and diuretics), BMI >30, obese per guidelines. (INACTIVE) CURRENT TF:Glucerna 1.5 goal of 50 + Prosource BID ENTERAL NUTRITION RECOMMENDATIONS: Glucerna 1.5 @ 50ml/hr x 24 hrs + Prosource 1pkt BID to provide 1200ml, 1800kcal, 99g prot, 926ml free water * Maintain current TF * Con't Prosource 1pkt BID (additional 22g prot) to better meet est prot needs. ADDITIONAL RECOMMENDATIONS: 1) Maintain calibrated bedscale wts 2) Monitor BGs closely w/ Solumedrol (<150 at this time) 3) Monitor lytes, replete as needed 4) Monitor TF tolerance: PEG placed 04/28 . . .
[2020-05-01 10:11] LABS: ALANINE AMINOTRANSFERASE 46 U/L (12-78); ALBUMIN 2.5 G/DL (3.4-5.0); ALKALINE PHOSPHATASE 153 U/L (46-116); ASPARTATE AMINO TRANSFERASE 18 U/L (15-37); BILIRUBIN,DIRECT 0.2 MG/DL (0.0-0.3); BILIRUBIN,TOTAL 0.6 MG/DL (0.2-1.0); PHOSPHORUS 3.6 MG/DL (2.5-4.9)
--- NOTE | 2020-05-01 11:35 | Pulmonology Progress Note ---
Subjective ROS Limited/Unobtainable: No Interval Events: S/p tracheostomy 04/25/20 Constitutional: Reports: fever - lgt x 1, fatigue, other - + trach and vent HEENT: Repors: no symptoms Respiratory: Reports: dry cough, shortness of breath Cardiovascular: Reports: no symptoms Gastrointestinal/Abdominal: Denies: nausea, vomiting Psychiatric: Reports: other - NA Skin: Denies: rash Musculoskeletal: Reports: other - NA Allergies: Coded Allergies: No Known Allergies (Unverified , 02/05/20) Objective Last 24 Hour Vital Signs Date Time Temp Pulse Resp B/P (MAP) Pulse Ox O2 Delivery O2 Flow Rate FiO2 05/01/20 11:00 58 18 120/68 (85) 98 05/01/20 10:00 61 18 112/68 (83) 98 05/01/20 09:34 68 18 50 05/01/20 09:00 73 18 151/78 (102) 97 05/01/20 08:00 Mechanical Ventilator 05/01/20 08:00 81 18 159/79 (105) 98 05/01/20 08:00 77 05/01/20 08:00 50 05/01/20 07:23 19 181/122 50 05/01/20 07:16 78 20 50 05/01/20 07:15 112 23 174/99 (124) 91 05/01/20 07:00 93 21 181/122 (141) 97 05/01/20 06:30 90 21 138/100 (113) 95 05/01/20 06:15 86 15 156/81 (106) 98 05/01/20 06:00 86 19 158/88 (111) 98 05/01/20 05:30 19 153/89 45 05/01/20 05:24 77 22 45 05/01/20 05:00 87 19 153/89 (110) 94 05/01/20 05:00 19 153/89 Mechanical Ventilator 45 05/01/20 04:59 18 134/91 Mechanical Ventilator 40 05/01/20 04:59 25 175/68 Mechanical Ventilator 45 05/01/20 04:30 90 20 153/122 (132) 94 05/01/20 04:00 Mechanical Ventilator 05/01/20 04:00 50 05/01/20 04:00 86 18 147/86 (106) 97 05/01/20 04:00 86 05/01/20 03:30 89 17 143/81 (101) 96 05/01/20 03:25 86 22 45 05/01/20 03:00 102 22 143/94 (110) 92 05/01/20 02:30 99 20 154/100 (118) 94 05/01/20 02:00 103 18 161/90 (113) 94 05/01/20 01:20 98 22 45 05/01/20 01:00 91 18 134/91 (105) 99 05/01/20 00:30 93 17 133/83 (100) 98 05/01/20 00:00 107 05/01/20 00:00 Mechanical Ventilator 05/01/20 00:00 107 16 130/78 (95) 90 05/01/20 00:00 16 130/78 Mechanical Ventilator 50 05/01/20 00:00 16 130/78 Mechanical Ventilator 50 04/30/20 23:30 96 19 133/76 (95) 96 04/30/20 23:08 100 20 45 04/30/20 23:00 17 131/78 Mechanical Ventilator 50 04/30/20 23:00 17 131/78 Mechanical Ventilator 50 04/30/20 23:00 98 17 131/78 (95) 96 04/30/20 22:00 17 131/78 Mechanical Ventilator 50 04/30/20 22:00 17 150/91 Mechanical Ventilator 50 04/30/20 22:00 105 17 150/91 (110) 98 04/30/20 21:30 104 18 178/105 (129) 99 04/30/20 21:15 102 21 50 04/30/20 21:00 17 148/84 Mechanical Ventilator 50 04/30/20 21:00 18 148/84 50 04/30/20 21:00 104 18 148/84 (105) 98 04/30/20 20:30 116 24 187/111 (136) 97 04/30/20 20:00 Mechanical Ventilator 04/30/20 20:00 105 21 149/94 (112) 96 04/30/20 20:00 21 149/94 Mechanical Ventilator 50 04/30/20 20:00 21 149/94 Mechanical Ventilator 50 04/30/20 20:00 50 04/30/20 19:30 110 24 50 04/30/20 19:30 116 24 174/95 (121) 92 04/30/20 19:00 24 174/95 Mechanical Ventilator 50 04/30/20 19:00 24 174/95 Mechanical Ventilator 50 04/30/20 19:00 116 21 188/104 (132) 99 04/30/20 18:13 16 180/111 Mechanical Ventilator 15.0 60 04/30/20 18:00 114 16 180/111 (134) 99 04/30/20 18:00 16 180/111 Mechanical Ventilator 60 04/30/20 18:00 16 180/111 Mechanical Ventilator 60 04/30/20 17:47 106 22 60 04/30/20 17:00 107 16 146/94 (111) 99 04/30/20 17:00 16 146/94 Mechanical Ventilator 60 04/30/20 17:00 16 146/94 Mechanical Ventilator 60 04/30/20 16:00 18 153/87 Mechanical Ventilator 60 04/30/20 16:00 18 153/87 Mechanical Ventilator 60 04/30/20 16:00 101 18 153/87 (109) 100 04/30/20 16:00 60 04/30/20 16:00 Mechanical Ventilator 04/30/20 16:00 125 04/30/20 15:08 108 19 60 04/30/20 15:00 110 22 154/88 (110) 94 04/30/20 15:00 20 150/82 Mechanical Ventilator 60 04/30/20 15:00 20 150/82 Mechanical Ventilator 60 04/30/20 14:00 97.9 122 22 200/108 (138) 94 04/30/20 14:00 22 154/88 Mechanical Ventilator 60 04/30/20 14:00 22 154/88 Mechanical Ventilator 60 04/30/20 13:20 106 23 60 04/30/20 13:00 22 200/108 Mechanical Ventilator 60 04/30/20 13:00 22 200/108 Mechanical Ventilator 60 04/30/20 13:00 94 18 176/104 (128) 98 04/30/20 12:00 60 04/30/20 12:00 18 177/88 Mechanical Ventilator 60 04/30/20 12:00 18 177/88 Mechanical Ventilator 60 04/30/20 12:00 98 04/30/20 12:00 Mechanical Ventilator 04/30/20 12:00 95 18 177/88 (117) 98 Intake and Output 04/30/20 05/01/20 19:00 07:00 Intake Total 1100 ml 812.5 ml Output Total 1310 ml Balance -210 ml 812.5 ml Free Water 200 ml IV Total 420 ml 372.5 ml Tube Feeding 480 ml 440 ml Output Urine Total 1310 ml # Bowel Movements 1 General Appearance: WD/WN, no acute distress HEENT: normocephalic, atraumatic, status post trach Respiratory: chest wall non-tender Cardiovascular: normal rate, regular rhythm Abdomen: normal bowel sounds, soft, non tender, other - obese Microbiology Date/Time Source Procedure Growth Status 04/29/20 19:00 Blood Blood Culture - Preliminary NO GROWTH AFTER 24 HOURS Resulted 04/29/20 18:50 Blood Blood Culture - Preliminary NO GROWTH AFTER 24 HOURS Resulted Laboratory Tests 05/01/20 00:27: POC Whole Blood Glucose 143H 05/01/20 03:48: White Blood Count 7.8, Red Blood Count 3.36L, Hemoglobin 9.6L, Hematocrit 30.5L, Mean Corpuscular Volume 91, Mean Corpuscular Hemoglobin 28.5, Mean Corpuscular Hemoglobin Concent 31.3L, Red Cell Distribution Width 16.9H, Platelet Count 297, Mean Platelet Volume 6.1L, Neutrophils (%) (Auto) , Lymphocytes (%) (Auto) , Monocytes (%) (Auto) , Eosinophils (%) (Auto) , Basophils (%) (Auto) , Sodium Level 146H, Potassium Level 3.8, Chloride Level 106, Carbon Dioxide Level 31, Anion Gap 9, Blood Urea Nitrogen 11, Creatinine 0.3L, Estimat Glomerular Fi ltration Rate > 60, Glucose Level 139H, Calcium Level 8.8, Phosphorus Level 3.6, Magnesium Level 2.0, Total Bilirubin 0.6, Direct Bilirubin 0.2, Aspartate Amino Transf (AST/SGOT) 18, Alanine Aminotransferase (ALT/SGPT) 46, Alkaline Phosphatase 153H, Total Protein 5.8L, Albumin 2.5L 05/01/20 06:43: POC Whole Blood Glucose [Pending] Current Medications Medications (Trade) Dose Ordered Sig/Dennis Route PRN Reason Start Time Stop Time Status Last Admin Dose Admin Acetaminophen (Tylenol) 650 mg Q4H PRN ORAL Temp >100.5 04/13/20 00:30 05/13/20 00:29 04/28/20 20:49 Chlorhexidine Gluconate (Marlen-Hex 2%) 1 applic DAILY@2000 TOPIC 03/30/20 20:00 06/28/20 19:59 04/30/20 20:39 Dextrose (Dextrose 50%) 25 ml Q30M PRN IV Hypoglycemia 03/29/20 20:45 06/27/20 20:44 Dextrose (Dextrose 50%) 50 ml Q30M PRN IV Hypoglycemia 03/29/20 20:45 06/27/20 20:44 Enoxaparin Sodium (Lovenox) 80 mg EVERY 12 HOURS SUBQ 04/06/20 21:00 07/05/20 20:59 05/01/20 07:47 Fentanyl Citrate 250 ml @ 1 mls/hr Q24H PRN IV SEDATION 04/30/20 07:30 05/01/20 23:44 05/01/20 04:59 Hydralazine HCl (Apresoline) 10 mg Q4H PRN IV For High Blood Pressure 03/30/20 12:15 06/28/20 12:14 04/29/20 05:53 Insulin Aspart (NovoLOG) Q6HR SUBQ 03/30/20 00:00 06/28/20 00:00 04/28/20 17:48 Lansoprazole (Prevacid) 15 mg Q12HR GT 04/20/20 21:00 05/20/20 20:59 05/01/20 07:45 Lorazepam (Ativan) 1 mg THREE TIMES A DAY ORAL 05/01/20 13:00 05/08/20 12:59 Methylprednisolone Sodium Succinate (Solu-MEDROL) 20 mg Q12HR IVP 04/12/20 21:00 06/20/20 20:59 05/01/20 07:46 Midazolam HCl 200 ml @ 0 mls/hr Q24H PRN IV SEDATION 04/25/20 01:00 05/02/20 00:29 05/01/20 07:23 Quetiapine Fumarate (SEROqueL) 50 mg EVERY 8 HOURS ORAL 04/29/20 12:00 06/11/20 11:59 05/01/20 07:07 Trimethoprim/ Sulfamethoxazole (Bactrim-DS) 1 tab DAILY ORAL 04/30/20 09:00 05/07/20 08:59 05/01/20 07:46 Assessment/Plan Assessment/Plan 1.COVID-19 pneumonia. - Completed specific therapies - On solumedrol 20 Iv q 12 - will add bactrim for PJP prophylaxis 2. DVT ppx - on lovenox 3. Hypertension - no longer on meds - Not requiring pressors 4. Leukocytosis; - ID following - Off abx - Candidemia documented 03/18/20 5. Elevated LFT - positive Hep C; treated in the past with IF 6. Respiratory failure -Intubated 03/28/20; s/p tracheostomy 04/25/20 -Family aware - Prognosis guarded - Vt 750; rate 18 -On sedation; will wean off; increased Seroquel to 50 TID; added Ativan 1mg TID 7. Discussed with cardiology -No evidence for cardiac dysfunction or PE 8. AMS -back on sedation S/p new PICC line Noted left upper extremity swelling. Has DVT; on full dose Lovenox Decrease sedation, DC propofol given high triglycerides. Will wean down FiO2 as tolerated CXR shows bilateral interstitial changes? fibrosis? S/p PEG Will dc IV fluids Increase tube feedings Dc planning to subacute The care for this patient was discussed with my supervising physician Time spent for this case was approximately 31 minutes Edilson Marinelli May 01, 2020 11:35
--- NOTE | 2020-05-01 11:50 | NUR ---
RESPIRATORY NOTE: Titrated Fio2 from 50% to 40%. Spo2 95%. RN notified.
--- NOTE | 2020-05-01 11:56 | Nephrology Progress Note ---
Assessment/Plan Problem List: (1) Dehydration (2) Electrolyte imbalance (3) COVID-19 virus infection (4) Pneumonia (5) DMII (diabetes mellitus, type 2) (6) Protein malnutrition Assessment Azotemia, hypernatremia Hypoalbuminemia Staff Otilia bacteremia COVID-19 isolation, pneumonia, bilateral infiltrate Hypertension Diabetes mellitus History of smoking Plan . May 01: Labs reviewed. Status quo. Patient has trach connected to vent. Has PEG. He is full code. FiO2 50%. April 30: Status quo. Labs reviewed. Renal parameters stable. Medication list reviewed. April 29: Status quo. Received PEG yesterday. Has trach connected to vent. FiO2 40%. Labs reviewed. Medication list reviewed. Continue same April 28: Status quo. Labs reviewed. Renal parameters stable. Patient n.p.o. due for PEG insertion. IV changed to D5 normal saline. Continue per consultants. April 27: Status quo. Labs reviewed. Medication list reviewed. Stable from renal standpoint of view. Abnormal electrolytes addressed. April 26: Patient is now trached and connected to vent. FiO2 70%. Labs reviewed. Renal parameters stable. Medication list reviewed. Continue per consultants. April 25: Status quo. Full code. FiO2 55%. No labs drawn today. Continue to monitor electrolytes and renal parameters. Continue per consultants. April 24: Status quo. Full code. Intubated on ventilator. FiO2 65%. Labs reviewed. Renal parameters and electrolytes stable. April 23: Status unchanged. Full code. Intubated on ventilator. FiO2 75%. Labs reviewed. Renal parameters stable. Continue per consultants. April 22: Labs reviewed. Patient remains intubated on ventilator and full code. FiO2 90%. Day 77 hospitalization. Not much to add from renal standpoint of view April 21: No CHEM panel drawn today. FiO2 60%. Patient full code. Continue per consultants. April 20: Labs reviewed. Renal parameters stable. Patient remains full code . Intubated on ventilator with FiO2 currently at 70%. Continue per consultants. April 19: No labs drawn today. Remains full code on FiO2 of 100%. Continue per consultants. April 18: Status quo. Labs reviewed. Renal parameters stable. April 17: Status quo. Intubated on ventilator. Full code. Labs reviewed. Electrolytes and renal parameters stable. Continue per consultants. April 16: Girlfriend in the room. Patient awake. Intubated. Full code. Labs reviewed. Abnormal electrolyte addressed. Continue per consultants. April 15: Labs reviewed. Electrolytes and renal parameters stable. Patient full code. Continues to be intubated on ventilator. April 14: Status quo. Labs reviewed. Remains intubated on ventilator. Full code. Continue per consultants. April 13: Status quo. Labs reviewed. Renal parameters electrolytes stable. Continue per current treatment plan. April 12: On higher FiO2. Will resume Lasix daily. Continue to monitor electrolytes and renal parameters. Per consultants. April 11: FiO2 went up to 85%. Renal parameters and electrolytes reasonably well-maintained. Will monitor serum potassium. Will give IV Lasix. April 10: Status quo. Labs reviewed. Remains intubated on ventilator with FiO2 of 65%. Remains full code. Stable from renal standpoint to view. Repeat vitamin D level on April 08 pending April 09: Status quo. Labs reviewed. Stable from renal standpoint of view. Continue per consultants. April 08: Discussed with RN. Labs reviewed. Clinically improving. Requires lower PEEP. Continue per pulmonary. Continue to monitor renal parameters. April 07: Remains full code and on ventilator. Labs reviewed. Renal parameters and electrolytes stable. Continue per consultants. Blood pressure marginally improved. April 06: Full code. On ventilator. Blood pressure 80-90 systolic. IV Lasix discontinued. Free water through tube feeding ordered. Continue to monitor electrolytes and serum sodium. Down on fentanyl as possible. Discussed with RN Kevin. Clonidine patch discontinued. April 05: Status quo. Remains full code. Remains intubated. Labs reviewed. Renal parameters stable. Serum sodium 150 unchanged. Continue per consultants. April 04: Remains intubated and on ventilator. Remains full code. Labs reviewed. Serum sodium 150 unchanged. Renal parameters stable. Continue per ID and pulmonary. April 03: Intubated. On ventilator. Full code. Labs reviewed. Serum sodium 150 unchanged. Continue to monitor renal parameters. Continue per pulmonary and ID. April 02: Full code. On ventilator. Discussed with RN. Serum sodium slightly higher. Will cut down on IV Lasix. Continue per consultants. Continue to monitor renal parameters and electrolytes. April 01: Full code. Remains on ventilator. Labs reviewed. Stable from renal standpoint of view. Continue per consultants. March 31: Full code . Remains intubated on ventilator. Labs reviewed. Patient appears toxic. Discussed with RN. Maintenance IV discontinued. Medication list reviewed. Blood pressure medication stopped due to low blood pressure. Levemir insulin stopped. Continue monitor blood sugar and sliding scale insulin. March 30: Full code. On ventilator. Labs reviewed. Clonidine patch dose inc reased. Lasix increased. 3% saline 1 time ordered. Continue to monitor electrolytes and renal parameters. March 29: Remains full code. On mechanical ventilation. On tube feeding. Will DC TPN. Will start on maintenance IV fluid. Continue to monitor renal parameters. March 28: On BiPAP. Full code. On TPN. Labs reviewed. Discussed with pharmacy. Continue as is. Watch serum potassium. March 27: Remains on BiPAP. No chemistry panel done today. Full code. On TPN. Will check lab tomorrow. March 26: Remains on BiPAP. Remains on TPN. Labs reviewed. Electrolytes and chemistries within normal limits. Continue as is. March 25: Remains on TPN. Labs reviewed. Discussed with pharmacy. Change IV Protonix to p.o. Continue 3% saline infusion with Lasix. Patient full code. March 24: Continue to be on TPN. Labs are reviewed. Aim to collect electrolytes. Discussed with pharmacy. Continue current consultants. March 23: Continues to be on TPN. Labs reviewed. Electrolytes and chemistrie s all acceptable. Discussed with pharmacy. Continue current management. March 22: On TPN. Labs reviewed. Low sodium noted. 3% saline to be continued. Continue to monitor electrolytes. Discussed with pharmacy. March 21: On TPN. Labs reviewed. Continue 3% saline and Lasix for mild hyponatremia. Continue TPN as these. Discussed with pharmacy. March 20: Remains on TPN. Labs reviewed. Serum sodium higher on IV Lasix and 3% saline infusion. Continue TPN as is. Continue to monitor renal parameters and electrolytes. Discussed with Dr. Mata March 19: Remains on TPN. Labs reviewed. Serum sodium 128. Will give 3% saline with IV Lasix. Continue to monitor electrolytes. No change in TPN composition. Discussed with pharmacy. March 18: Remains on TPN. Labs reviewed. Discussed with pharmacist. Will give 3 doses of IV Lasix 20 mg every 8 hours. Continue to monitor serum sodium electrolytes uric acid. White blood cells down. Continue per consultants. March 17: On TPN. Labs reviewed. Discussed with pharmacist. Sodium content increase. Continue to monitor CMP. Patient continues to have leukocytosis. March 16: On TPN. Labs reviewed. Discussed with pharmacist. Appropriate changes made. Continue to monitor electrolytes. March 15: Remains on TPN. Labs reviewed. Discussed with pharmacist. Continue per current management. March 14: Remains on TPN. Labs reviewed, stable. Vitamin D level low, replacement ordered. Continue to monitor electrolytes and renal parameters. March 13: Patient remains on TPN. Discussed with pharmacist. TPN's sodium content adjusted. Labs reviewed. Continue to monitor electrolytes. Blood pressure remains stable. Continue per consultants. March 12: Patient on TPN. Labs reviewed. CPK remains elevated. Abnormal electrolytes and high blood sugar discussed with pharmacist and TPN adjusted. Continue to monitor labs. Oral Protonix added. Ibuprofen discontinued. Can continue to monitor electrolytes and chemistries. Levemir for high blood sugar added. March 11: Patient on TPN. Labs as of 11:15 AM is still pending. Continue per current treatment plan. Will check labs and adjust TPN as needed. Continue per consultants. March 10: Patient on TPN. Labs reviewed. Electrolytes overall stable. CPK is elevated. Will monitor electrolyte, CPK level, lipid panel. Continue per consultants. Discussed with pharmacist. Discussed with RN. Nutritional evaluation noted. Previously: D5W 100 cc an hour Monitor electrolytes renal parameters TPN and Intralipid ordered Will follow Continue per consultants Dietary consult requested Subjective ROS Limited/Unobtainable: Yes Objective Objective Last 24 Hour Vital Signs Date Time Temp Pulse Resp B/P (MAP) Pulse Ox O2 Delivery O2 Flow Rate FiO2 05/01/20 11:50 61 18 50 05/01/20 11:00 58 18 120/68 (85) 98 05/01/20 10:00 61 18 112/68 (83) 98 05/01/20 09:34 68 18 50 05/01/20 09:00 73 18 151/78 (102) 97 05/01/20 08:00 Mechanical Ventilator 05/01/20 08:00 81 18 159/79 (105) 98 05/01/20 08:00 77 05/01/20 08:00 50 05/01/20 07:23 19 181/122 50 05/01/20 07:16 78 20 50 05/01/20 07:15 112 23 174/99 (124) 91 05/01/20 07:00 93 21 181/122 (141) 97 05/01/20 06:30 90 21 138/100 (113) 95 05/01/20 06:15 86 15 156/81 (106) 98 05/01/20 06:00 86 19 158/88 (111) 98 05/01/20 05:30 19 153/89 45 05/01/20 05:24 77 22 45 05/01/20 05:00 87 19 153/89 (110) 94 05/01/20 05:00 19 153/89 Mechanical Ventilator 45 05/01/20 04:59 18 134/91 Mechanical Ventilator 40 05/01/20 04:59 25 175/68 Mechanical Ventilator 45 05/01/20 04:30 90 20 153/122 (132) 94 05/01/20 04:00 Mechanical Ventilator 05/01/20 04:00 50 05/01/20 04:00 86 18 147/86 (106) 97 05/01/20 04:00 86 05/01/20 03:30 89 17 143/81 (101) 96 05/01/20 03:25 86 22 45 05/01/20 03:00 102 22 143/94 (110) 92 05/01/20 02:30 99 20 154/100 (118) 94 05/01/20 02:00 103 18 161/90 (113) 94 05/01/20 01:20 98 22 45 05/01/20 01:00 91 18 134/91 (105) 99 05/01/20 00:30 93 17 133/83 (100) 98 05/01/20 00:00 107 05/01/20 00:00 Mechanical Ventilator 05/01/20 00:00 107 16 130/78 (95) 90 05/01/20 00:00 16 130/78 Mechanical Ventilator 50 05/01/20 00:00 16 130/78 Mechanical Ventilator 50 04/30/20 23:30 96 19 133/76 (95) 96 04/30/20 23:08 100 20 45 04/30/20 23:00 17 131/78 Mechanical Ventilator 50 04/30/20 23:00 17 131/78 Mechanical Ventilator 50 04/30/20 23:00 98 17 131/78 (95) 96 04/30/20 22:00 17 131/78 Mechanical Ventilator 50 04/30/20 22:00 17 150/91 Mechanical Ventilator 50 04/30/20 22:00 105 17 150/91 (110) 98 04/30/20 21:30 104 18 178/105 (129) 99 04/30/20 21:15 102 21 50 04/30/20 21:00 17 148/84 Mechanical Ventilator 50 04/30/20 21:00 18 148/84 50 04/30/20 21:00 104 18 148/84 (105) 98 04/30/20 20:30 116 24 187/111 (136) 97 04/30/20 20:00 Mechanical Ventilator 04/30/20 20:00 105 21 149/94 (112) 96 04/30/20 20:00 21 149/94 Mechanical Ventilator 50 04/30/20 20:00 21 149/94 Mechanical Ventilator 50 04/30/20 20:00 50 04/30/20 19:30 110 24 50 04/30/20 19:30 116 24 174/95 (121) 92 04/30/20 19:00 24 174/95 Mechanical Ventilator 50 04/30/20 19:00 24 174/95 Mechanical Ventilator 50 04/30/20 19:00 116 21 188/104 (132) 99 04/30/20 18:13 16 180/111 Mechanical Ventilator 15.0 60 04/30/20 18:00 114 16 180/111 (134) 99 04/30/20 18:00 16 180/111 Mechanical Ventilator 60 04/30/20 18:00 16 180/111 Mechanical Ventilator 60 04/30/20 17:47 106 22 60 04/30/20 17:00 107 16 146/94 (111) 99 04/30/20 17:00 16 146/94 Mechanical Ventilator 60 04/30/20 17:00 16 146/94 Mechanical Ventilator 60 04/30/20 16:00 18 153/87 Mechanical Ventilator 60 04/30/20 16:00 18 153/87 Mechanical Ventilator 60 04/30/20 16:00 101 18 153/87 (109) 100 04/30/20 16:00 60 04/30/20 16:00 Mechanical Ventilator 04/30/20 16:00 125 04/30/20 15:08 108 19 60 04/30/20 15:00 110 22 154/88 (110) 94 04/30/20 15:00 20 150/82 Mechanical Ventilator 60 04/30/20 15:00 20 150/82 Mechanical Ventilator 60 04/30/20 14:00 97.9 122 22 200/108 (138) 94 04/30/20 14:00 22 154/88 Mechanical Ventilator 60 04/30/20 14:00 22 154/88 Mechanical Ventilator 60 04/30/20 13:20 106 23 60 04/30/20 13:00 22 200/108 Mechanical Ventilator 60 04/30/20 13:00 22 200/108 Mechanical Ventilator 60 04/30/20 13:00 94 18 176/104 (128) 98 04/30/20 12:00 60 04/30/20 12:00 18 177/88 Mechanical Ventilator 60 04/30/20 12:00 18 177/88 Mechanical Ventilator 60 04/30/20 12:00 98 04/30/20 12:00 Mechanical Ventilator 04/30/20 12:00 95 18 177/88 (117) 98 Intake and Output 04/30/20 05/01/20 19:00 07:00 Intake Total 1100 ml 812.5 ml Output Total 1310 ml Balance -210 ml 812.5 ml Free Water 200 ml IV Total 420 ml 372.5 ml Tube Feeding 480 ml 440 ml Output Urine Total 1310 ml # Bowel Movements 1 Current Medications Medications (Trade) Dose Ordered Sig/Dennis Route PRN Reason Start Time Stop Time Status Last Admin Dose Admin Acetaminophen (Tylenol) 650 mg Q4H PRN ORAL Temp >100.5 04/13/20 00:30 05/13/20 00:29 04/28/20 20:49 Chlorhexidine Gluconate (Marlen-Hex 2%) 1 applic DAILY@1999 TOPIC 03/30/20 20:00 06/28/20 19:59 04/30/20 20:39 Dextrose (Dextrose 50%) 25 ml Q30M PRN IV Hypoglycemia 03/29/20 20:45 06/27/20 20:44 Dextrose (Dextrose 50%) 50 ml Q30M PRN IV Hypoglycemia 03/29/20 20:45 06/27/20 20:44 Enoxaparin Sodium (Lovenox) 80 mg EVERY 12 HOURS SUBQ 04/06/20 21:00 07/05/20 20:59 05/01/20 07:47 Fentanyl Citrate 250 ml @ 1 mls/hr Q24H PRN IV SEDATION 04/30/20 07:30 05/01/20 23:44 05/01/20 04:59 Fentanyl Citrate 250 ml @ 1 mls/hr Q24H PRN IV Agitation 05/01/20 12:00 05/03/20 11:59 UNV Hydralazine HCl (Apresoline) 10 mg Q4H PRN IV For High Blood Pressure 03/30/20 12:15 06/28/20 12:14 04/29/20 05:53 Insulin Aspart (NovoLOG) Q6HR SUBQ 03/30/20 00:00 06/28/20 00:00 04/28/20 17:48 Lansoprazole (Prevacid) 15 mg Q12HR GT 04/20/20 21:00 05/20/20 20:59 05/01/20 07:45 Lorazepam (Ativan) 1 mg THREE TIMES A DAY ORAL 05/01/20 13:00 05/08/20 12:59 Methylprednisolone Sodium Succinate (Solu-MEDROL) 20 mg Q12HR IVP 04/12/20 21:00 06/20/20 20:59 05/01/20 07:46 Midazolam HCl 200 ml @ 0 mls/hr Q24H PRN IV SEDATION 04/25/20 01:00 05/02/20 00:29 05/01/20 07:23 Quetiapine Fumarate (SEROqueL) 50 mg EVERY 8 HOURS ORAL 04/29/20 12:00 06/11/20 11:59 05/01/20 07:07 Trimethoprim/ Sulfamethoxazole (Bactrim-DS) 1 tab DAILY ORAL 04/30/20 09:00 05/07/20 08:59 05/01/20 07:46 Laboratory Tests 05/01/20 00:27: POC Whole Blood Glucose 143H 05/01/20 03:48: White Blood Count 7.8, Red Blood Count 3.36L, Hemoglobin 9.6L, Hematocrit 30.5L, Mean Corpuscular Volume 91, Mean Corpuscular Hemoglobin 28.5, Mean Corpuscular Hemoglobin Concent 31.3L, Red Cell Distribution Width 16.9H, Platelet Count 297, Mean Platelet Volume 6.1L, Neutrophils (%) (Auto) , Lymphocytes (%) (Auto) , Monocytes (%) (Auto) , Eosinophils (%) (Auto) , Basophils (%) (Auto) , Sodium Level 146H, Potassium Level 3.8, Chloride Level 106, Carbon Dioxide Level 31, Anion Gap 9, Blood Urea Nitrogen 11, Creatinine 0.3L, Estimat Glomerular Filtration Rate > 60, Glucose Level 139H, Calcium Level 8.8, Phosphorus Level 3.6, Magnesium Level 2.0, Total Bilirubin 0.6, Direct Bilirubin 0.2, Aspartate Amino Transf (AST/SGOT) 18, Alanine Aminotransferase (ALT/SGPT) 46, Alkaline Phosphatase 153H, Total Protein 5.8L, Albumin 2.5L 05/01/20 06:43: POC Whole Blood Glucose [Pending] Height (Feet): 5 Height (Inches): 10.00 Weight (Pounds): 243 General Appearance: no apparent distress EENT: other - Trach vent Cardiovascular: normal rate, arrhythmia Respiratory/Chest: decreased breath sounds Abdomen: distended Rubin Cooper MD May 01, 2020 11:56
[2020-05-01] MEDS ORDERED: fentaNYL 2500mcg/NS 250ml 250 ML IV PRN (12:00)
--- NOTE | 2020-05-01 12:42 | Surgery Progress Note ---
Surgery Progress Note Subjective Procedure Performed tracheostomy Symptoms: improved, tolerating diet, passing flatus, BM Objective Last 24 Hour Vital Signs Date Time Temp Pulse Resp B/P (MAP) Pulse Ox O2 Delivery O2 Flow Rate FiO2 05/01/20 11:50 61 18 40 05/01/20 11:00 58 18 120/68 (85) 98 05/01/20 10:00 61 18 112/68 (83) 98 05/01/20 09:34 68 18 50 05/01/20 09:00 73 18 151/78 (102) 97 05/01/20 08:00 Mechanical Ventilator 05/01/20 08:00 81 18 159/79 (105) 98 05/01/20 08:00 77 05/01/20 08:00 50 05/01/20 07:23 19 181/122 50 05/01/20 07:16 78 20 50 05/01/20 07:15 112 23 174/99 (124) 91 05/01/20 07:00 93 21 181/122 (141) 97 05/01/20 06:30 90 21 138/100 (113) 95 05/01/20 06:15 86 15 156/81 (106) 98 05/01/20 06:00 86 19 158/88 (111) 98 05/01/20 05:30 19 153/89 45 05/01/20 05:24 77 22 45 05/01/20 05:00 87 19 153/89 (110) 94 05/01/20 05:00 19 153/89 Mechanical Ventilator 45 05/01/20 04:59 18 134/91 Mechanical Ventilator 40 05/01/20 04:59 25 175/68 Mechanical Ventilator 45 05/01/20 04:30 90 20 153/122 (132) 94 05/01/20 04:00 Mechanical Ventilator 05/01/20 04:00 50 05/01/20 04:00 86 18 147/86 (106) 97 05/01/20 04:00 86 05/01/20 03:30 89 17 143/81 (101) 96 05/01/20 03:25 86 22 45 05/01/20 03:00 102 22 143/94 (110) 92 05/01/20 02:30 99 20 154/100 (118) 94 05/01/20 02:00 103 18 161/90 (113) 94 05/01/20 01:20 98 22 45 05/01/20 01:00 91 18 134/91 (105) 99 05/01/20 00:30 93 17 133/83 (100) 98 05/01/20 00:00 107 05/01/20 00:00 Mechanical Ventilator 05/01/20 00:00 107 16 130/78 (95) 90 05/01/20 00:00 16 130/78 Mechanical Ventilator 50 05/01/20 00:00 16 130/78 Mechanical Ventilator 50 04/30/20 23:30 96 19 133/76 (95) 96 04/30/20 23:08 100 20 45 04/30/20 23:00 17 131/78 Mechanical Ventilator 50 04/30/20 23:00 17 131/78 Mechanical Ventilator 50 04/30/20 23:00 98 17 131/78 (95) 96 04/30/20 22:00 17 131/78 Mechanical Ventilator 50 04/30/20 22:00 17 150/91 Mechanical Ventilator 50 04/30/20 22:00 105 17 150/91 (110) 98 04/30/20 21:30 104 18 178/105 (129) 99 04/30/20 21:15 102 21 50 04/30/20 21:00 17 148/84 Mechanical Ventilator 50 04/30/20 21:00 18 148/84 50 04/30/20 21:00 104 18 148/84 (105) 98 04/30/20 20:30 116 24 187/111 (136) 97 04/30/20 20:00 Mechanical Ventilator 04/30/20 20:00 105 21 149/94 (112) 96 04/30/20 20:00 21 149/94 Mechanical Ventilator 50 04/30/20 20:00 21 149/94 Mechanical Ventilator 50 04/30/20 20:00 50 04/30/20 19:30 110 24 50 04/30/20 19:30 116 24 174/95 (121) 92 04/30/20 19:00 24 174/95 Mechanical Ventilator 50 04/30/20 19:00 24 174/95 Mechanical Ventilator 50 04/30/20 19:00 116 21 188/104 (132) 99 04/30/20 18:13 16 180/111 Mechanical Ventilator 15.0 60 04/30/20 18:00 114 16 180/111 (134) 99 04/30/20 18:00 16 180/111 Mechanical Ventilator 60 04/30/20 18:00 16 180/111 Mechanical Ventilator 60 04/30/20 17:47 106 22 60 04/30/20 17:00 107 16 146/94 (111) 99 04/30/20 17:00 16 146/94 Mechanical Ventilator 60 04/30/20 17:00 16 146/94 Mechanical Ventilator 60 04/30/20 16:00 18 153/87 Mechanical Ventilator 60 04/30/20 16:00 18 153/87 Mechanical Ventilator 60 04/30/20 16:00 101 18 153/87 (109) 100 04/30/20 16:00 60 04/30/20 16:00 Mechanical Ventilator 04/30/20 16:00 125 04/30/20 15:08 108 19 60 04/30/20 15:00 110 22 154/88 (110) 94 04/30/20 15:00 20 150/82 Mechanical Ventilator 60 04/30/20 15:00 20 150/82 Mechanical Ventilator 60 04/30/20 14:00 97.9 122 22 200/108 (138) 94 04/30/20 14:00 22 154/88 Mechanical Ventilator 60 04/30/20 14:00 22 154/88 Mechanical Ventilator 60 04/30/20 13:20 106 23 60 04/30/20 13:00 22 200/108 Mechanical Ventilator 60 04/30/20 13:00 22 200/108 Mechanical Ventilator 60 04/30/20 13:00 94 18 176/104 (128) 98 I&O Intake and Output 04/30/20 05/01/20 19:00 07:00 Intake Total 1100 ml 812.5 ml Output Total 1310 ml Balance -210 ml 812.5 ml Free Water 200 ml IV Total 420 ml 372.5 ml Tube Feeding 480 ml 440 ml Output Urine Total 1310 ml # Bowel Movements 1 Dressing: saturated Cardiovascular: RSR Respiratory: decreased breath sounds Abdomen: soft, non-tender, present bowel sounds, non-distended Extremities: no tenderness, no cyanosis Laboratory Tests Test 05/01/20 00:27 05/01/20 03:48 05/01/20 06:43 POC Whole Blood Glucose 143 MG/DL (74-106) H Pending White Blood Count 7.8 K/UL (4.8-10.8) Red Blood Count 3.36 M/UL (4.70-6.10) L Hemoglobin 9.6 G/DL (14.2-18.0) L Hematocrit 30.5 % (42.0-52.0) L Mean Corpuscular Volume 91 FL (80-99) Mean Corpuscular Hemoglobin 28.5 PG (27.0-31.0) Mean Corpuscular Hemoglobin Concent 31.3 G/DL (32.0-36.0) L Red Cell Distribution Width 16.9 % (11.6-14.8) H Platelet Count 297 K/UL (150-450) Mean Platelet Volume 6.1 FL (6.5-10.1) L Neutrophils (%) (Auto) % (45.0-75.0) Lymphocytes (%) (Auto) % (20.0-45.0) Monocytes (%) (Auto) % (1.0-10.0) Eosinophils (%) (Auto) % (0.0-3.0) Basophils (%) (Auto) % (0.0-2.0) Sodium Level 146 MMOL/L (136-145) H Potassium Level 3.8 MMOL/L (3.5-5.1) Chloride Level 106 MMOL/L (98-107) Carbon Dioxide Level 31 MMOL/L (21-32) Anion Gap 9 mmol/L (5-15) Blood Urea Nitrogen 11 mg/dL (7-18) Creatinine 0.3 MG/DL (0.55-1.30) L Estimat Glomerular Filtration Rate > 60 mL/min (>60) Glucose Level 139 MG/DL (74-106) H Calcium Level 8.8 MG/DL (8.5-10.1) Phosphorus Level 3.6 MG/DL (2.5-4.9) Magnesium Level 2.0 MG/DL (1.8-2.4) Total Bilirubin 0.6 MG/DL (0.2-1.0) Direct Bilirubin 0.2 MG/DL (0.0-0.3) Aspartate Amino Transf (AST/SGOT) 18 U/L (15-37) Alanine Aminotransferase (ALT/SGPT) 46 U/L (12-78) Alkaline Phosphatase 153 U/L (46-116) H Total Protein 5.8 G/DL (6.4-8.2) L Albumin 2.5 G/DL (3.4-5.0) L Plan Problems: (1) Pneumonia (2) Staphylococcus aureus bacteremia (3) COVID-19 virus infection (4) Chest pain (5) Hypertension (6) Dehydration (7) Electrolyte imbalance (8) DMII (diabetes mellitus, type 2) (9) Protein malnutrition (10) Respiratory insufficiency Assessment & Plan: 64-year-old male with respiratory insufficiency intubated in an intensive care unit. Patient has been unable to safely wean off ventilatory support. Surgery called to evaluate for tracheostomy. After careful evaluation patient is a candidate for tracheostomy. In the meantime will obtain consent. If consent obtained will proceed with scheduling. Thank you for your participation's care will follow recommendations Booker Rausch May 01, 2020 12:42
[2020-05-01] MEDS: LORazepam 1mg tab ORAL SCH ×2 (13:10→17:59)
[2020-05-01] MEDS ORDERED: D5W 550ml IV ONE (14:01)
[2020-05-01] MEDS ORDERED: Sterile Water Irrig 1000ml IRRIG ONE (14:01)
[2020-05-01] MEDS ORDERED: D5W 275ml ONE (14:01)
--- NOTE | 2020-05-01 18:31 | Infectious Diseases Prog Note ---
Assessment/Plan Assessment/Plan ASSESSMENT AND PLAN: 1. staph aureus bacteremia/mssa, ? source, ? endocarditis, sepsis, leukocytosis covid-19 +, hypoxia, sob, chest x-ray worse, ? PE, ? HCAP/aspiration pna leukocytosis noted - ? new infection, ? steroids cocci serology negative, legionella negative, beta 1,3 D-glucan wnl, Il-16 - 13.7 elevated LFT's - ? TPN, ? Bactrim - US without gallbladder disease, + steatosis - d/w GI - TPN more likely than bactrim as etiology e.coli uti - s/p treatment with rocephin, s/p treatment for presumptive pneumocystis pna + yeast in blood, fungemia, ? line infection, line changed worsening respiratory status, ? new aspiration pna/hcap, ? sepsis ? fungal/cynthia uti vs colonization - s/p tx - s/p zosyn and vancomycin - s/p micafungin -(post negative blood cultures - 04/02/20) - on solumedrol - picc line changed - bactrim for pneumocystis prophylaxis, s/p pneumocystis treatment - s/p tx for mssa bacteremia and ? endocarditis - monitor hypoxia, labs and chest x-ray - s/p trach - c.diff. negative - surveillance blood cultures negative, f/u on ua for low grade fevers 2. covid-19 isolation 3. Hypertension history. Blood pressure treatment primary care team. 4. Elevated blood sugars. Blood sugar treatment per primary care team. 5. No known drug allergies. 6. Social history is positive for smoking. 7. Family history is noncontributory. 8. MAR was noted. 9. Case was discussed with RN. 10. Continue treatment per primary consultants. Subjective Constitutional: Reports: other - s/p trach, no pressors, no + vent ; Denies: fever HEENT: Reports: congestion Respiratory: Reports: shortness of breath Cardiovascular: Denies: chest pain Gastrointestinal/Abdominal: Denies: nausea, vomiting, diarrhea Genitourinary: Reports: other - + joseph Neurologic: Reports: other - generalized weakness but responsive Psychiatric: Reports: other - NA Skin: Denies: rash Hematologic: Denies: bleeding Allergies: Coded Allergies: No Known Allergies (Unverified , 02/05/20) Objective Last 24 Hour Vital Signs Date Time Temp Pulse Resp B/P (MAP) Pulse Ox O2 Delivery O2 Flow Rate FiO2 05/01/20 18:00 22 181/95 Mechanical Ventilator 40 05/01/20 17:59 117 22 181/95 90 05/01/20 16:45 65 18 121/67 (85) 93 05/01/20 16:30 64 18 126/67 (86) 92 05/01/20 16:15 63 18 117/67 (84) 95 05/01/20 16:00 65 18 127/67 (87) 94 05/01/20 16:00 Mechanical Ventilator 05/01/20 16:00 97.4 62 18 121/67 (85) 93 05/01/20 16:00 Mechanical Ventilator 05/01/20 16:00 40 05/01/20 16:00 62 05/01/20 15:50 65 18 40 05/01/20 15:45 68 18 131/69 (89) 94 05/01/20 15:43 18 143/68 Mechanical Ventilator 40 05/01/20 15:30 68 18 143/68 (93) 93 05/01/20 15:15 75 17 127/69 (88) 94 05/01/20 15:00 75 18 138/70 (92) 95 05/01/20 15:00 71 18 138/70 (92) 94 05/01/20 15:00 18 127/69 Mechanical Ventilator 40 05/01/20 15:00 18 127/69 Mechanical Ventilator 40 05/01/20 14:45 64 18 126/67 (86) 94 05/01/20 14:30 63 18 145/73 (97) 95 05/01/20 14:15 60 18 123/70 (87) 95 05/01/20 14:00 65 16 143/82 (102) 94 05/01/20 14:00 18 123/70 Mechanical Ventilator 40 05/01/20 14:00 18 123/70 Mechanical Ventilator 40 05/01/20 14:00 61 18 111/63 (79) 95 05/01/20 13:45 55 18 111/63 (79) 97 05/01/20 13:30 56 18 115/64 (81) 96 05/01/20 13:15 57 18 118/67 (84) 96 05/01/20 13:10 63 18 116/67 97 05/01/20 13:00 56 18 116/67 (83) 96 05/01/20 13:00 18 118/67 Mechanical Ventilator 40 05/01/20 13:00 18 118/67 Mechanical Ventilator 40 05/01/20 13:00 57 18 118/67 (84) 96 05/01/20 12:45 56 18 114/64 (81) 96 05/01/20 12:30 56 18 116/66 (83) 96 05/01/20 12:15 57 18 118/66 (83) 95 05/01/20 12:00 Mechanical Ventilator 05/01/20 12:00 57 05/01/20 12:00 57 18 118/66 (83) 95 05/01/20 12:00 97.2 58 18 121/68 (85) 96 05/01/20 12:00 18 118/66 Mechanical Ventilator 40 05/01/20 12:00 18 118/66 Mechanical Ventilator 40 05/01/20 12:00 Mechanical Ventilator 05/01/20 12:00 40 05/01/20 11:50 61 18 40 05/01/20 11:45 63 18 122/72 (89) 99 05/01/20 11:30 56 18 119/67 (84) 99 05/01/20 11:15 57 18 118/66 (83) 98 05/01/20 11:00 58 18 120/68 (85) 98 05/01/20 11:00 57 18 120/68 (85) 98 05/01/20 11:00 18 118/66 Mechanical Ventilator 50 05/01/20 11:00 18 118/66 Mechanical Ventilator 50 05/01/20 10:45 58 18 119/68 (85) 98 05/01/20 10:30 60 18 119/71 (87) 98 05/01/20 10:15 61 18 112/68 (83) 98 05/01/20 10:00 61 18 112/68 (83) 98 05/01/20 10:00 18 112/68 Mechanical Ventilator 50 05/01/20 10:00 18 112/68 Mechanical Ventilator 50 05/01/20 10:00 63 18 116/71 (86) 98 05/01/20 09:45 65 18 117/67 (84) 98 05/01/20 09:34 68 18 50 05/01/20 09:30 68 18 115/73 (87) 97 05/01/20 09:15 85 20 151/78 (102) 96 05/01/20 09:00 73 18 151/78 (102) 97 05/01/20 09:00 18 151/78 Mechanical Ventilator 50 05/01/20 09:00 18 151/78 Mechanical Ventilator 50 05/01/20 09:00 72 15 123/72 (89) 99 05/01/20 08:45 79 18 132/93 (106) 98 05/01/20 08:30 95 21 139/98 (112) 95 05/01/20 08:22 77 12 159/79 (105) 98 05/01/20 08:15 85 8 98 05/01/20 08:00 Mechanical Ventilator 05/01/20 08:00 Mechanical Ventilator 05/01/20 08:00 81 18 159/79 (105) 98 05/01/20 08:00 77 05/01/20 08:00 50 05/01/20 08:00 18 159/79 Mechanical Ventilator 50 05/01/20 08:00 18 159/79 Mechanical Ventilator 50 05/01/20 08:00 97.7 78 0 117/76 (90) 96 05/01/20 07:45 88 15 126/81 (96) 89 05/01/20 07:30 98 22 145/71 (95) 94 05/01/20 07:23 19 181/122 50 05/01/20 07:16 78 20 50 05/01/20 07:15 112 23 174/99 (124) 91 05/01/20 07:00 18 174/99 Mechanical Ventilator 50 05/01/20 07:00 18 174/99 Mechanical Ventilator 50 05/01/20 07:00 93 21 181/122 (141) 97 05/01/20 06:30 90 21 138/100 (113) 95 05/01/20 06:15 86 15 156/81 (106) 98 05/01/20 06:00 86 19 158/88 (111) 98 05/01/20 05:30 19 153/89 45 05/01/20 05:24 77 22 45 05/01/20 05:00 87 19 153/89 (110) 94 05/01/20 05:00 19 153/89 Mechanical Ventilator 45 05/01/20 04:59 18 134/91 Mechanical Ventilator 40 05/01/20 04:59 25 175/68 Mechanical Ventilator 45 05/01/20 04:30 90 20 153/122 (132) 94 05/01/20 04:00 Mechanical Ventilator 05/01/20 04:00 50 05/01/20 04:00 86 18 147/86 (106) 97 05/01/20 04:00 86 05/01/20 03:30 89 17 143/81 (101) 96 05/01/20 03:25 86 22 45 05/01/20 03:00 102 22 143/94 (110) 92 05/01/20 02:30 99 20 154/100 (118) 94 05/01/20 02:00 103 18 161/90 (113) 94 05/01/20 01:20 98 22 45 05/01/20 01:00 91 18 134/91 (105) 99 05/01/20 00:30 93 17 133/83 (100) 98 05/01/20 00:00 107 05/01/20 00:00 Mechanical Ventilator 05/01/20 00:00 107 16 130/78 (95) 90 05/01/20 00:00 16 130/78 Mechanical Ventilator 50 05/01/20 00:00 16 130/78 Mechanical Ventilator 50 04/30/20 23:30 96 19 133/76 (95) 96 04/30/20 23:08 100 20 45 04/30/20 23:00 17 131/78 Mechanical Ventilator 50 04/30/20 23:00 17 131/78 Mechanical Ventilator 50 04/30/20 23:00 98 17 131/78 (95) 96 04/30/20 22:00 17 131/78 Mechanical Ventilator 50 04/30/20 22:00 17 150/91 Mechanical Ventilator 50 04/30/20 22:00 105 17 150/91 (110) 98 04/30/20 21:30 104 18 178/105 (129) 99 04/30/20 21:15 102 21 50 04/30/20 21:00 17 148/84 Mechanical Ventilator 50 04/30/20 21:00 18 148/84 50 04/30/20 21:00 104 18 148/84 (105) 98 04/30/20 20:30 116 24 187/111 (136) 97 04/30/20 20:00 Mechanical Ventilator 04/30/20 20:00 105 21 149/94 (112) 96 04/30/20 20:00 21 149/94 Mechanical Ventilator 50 04/30/20 20:00 21 149/94 Mechanical Ventilator 50 04/30/20 20:00 50 04/30/20 19:30 110 24 50 04/30/20 19:30 116 24 174/95 (121) 92 04/30/20 19:00 24 174/95 Mechanical Ventilator 50 04/30/20 19:00 24 174/95 Mechanical Ventilator 50 04/30/20 19:00 116 21 188/104 (132) 99 Height (Feet): 5 Height (Inches): 10.00 Weight (Pounds): 243 General Appearance: other - + trach, vent, no pressors HEENT: normocephalic, atraumatic, anicteric, no JVD, status post trach Respiratory/Chest: crackles/rales, rhonchi - bilaterally Cardiovascular: normal rate, regular rhythm, no gallop/murmur Abdomen: normal bowel sounds, soft, non tender, no organomegaly, non distended Genitourinary: other - + joseph Extremities: no cyanosis Skin: no rash 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 The infiltrates are typical for Covid 19. No evidence of pulmonary embolus. CT abdomen and pelvis: IMPRESSION: 1. Scattered hepatic hypodense lesions, too small to characterize on this examination without intravenous contrast. 2. Colonic diverticulosis without evidence of acute diverticulitis. 3. Scattered enlarged mesenteric lymph nodes, presumably reactive. teral pneumonia. The infiltrates are typical for Covid 19. No evidence of pulmonary embolus. Chest x-ray - 12/19/19 - Indication: Shortness of breath Technique: One view of the chest Comparison: 02/17/2020 Findings: Interim worsening of bilateral infiltrates, particularly on the right. The heart is borderline enlarged. The pleural spaces are clear. Left arm PICC is again demonstrated Impression: Worsening bilateral infiltrates over one day, likely pneumonia CT chest - 02/19/20 - IMPRESSION: Increased extensive patchy ground-glass opacities and densities throughout the lungs, suggestive of Covid 19 infection. Chest x-ray 02/23/20 - Procedure: XRAY Chest 1v As Indication: Reason For Exam: INFECT Technique: One view of the chest Comparison: 02/20/2020 Findings: Allowing for differences in exposure technique, bilateral mid and lower lung infiltrates are probably unchanged. The heart size is normal. The pleural spaces are clear. Impression: Unchanged, over 4 days, findings as above. Chest x-ray - 02/25/20 - FINDINGS: Lungs: Interval slightly worsening bilateral airspace disease. Pleural space: Unremarkable. No pneumothorax. Heart: Unremarkable. No cardiomegaly. Mediastinum: Unremarkable. Bones/joints: Unremarkable. IMPRESSION: Interval slightly worsening bilateral airspace disease. Chest x-ray - 03/02/20 - Procedure: XRAY Chest 1v Indication: Shortness of breath Technique: One view of the chest Comparison: 02/25/2020 Findings: Bilateral interstitial and airspace infiltrates are unchanged. The heart size is normal. Left arm PICC is again demonstrated Impression: Unchanged, over one day, findings as above. Chest x-ray - 03/06/20 - Procedure: XRAY Chest 1v Indication: Shortness of breath Technique: One view of the chest Comparison: 03/02/2020 Findings: Bilateral infiltrates are unchanged. Normal heart size. Pleural spaces are clear Chest x-ray - 03/12/10 - Impression: COMPARISON: Chest radiograph March 06, 2020. FINDINGS/IMPRESSION: Improving basilar infiltrates. Follow chest radiograph recommended. The upper lung finley are clear. No pneumothorax. Stable cardiomegaly. Stable left upper extremity PICC line. anged, over 4 days, findings as above. Chest x-ray - 03/17/20 - Procedure: XRAY Chest 1v Indication: Shortness of breath Technique: One view of the chest Comparison: 03/12/2020 Findings: Left arm PICC is again demonstrated. Infiltrates are unchanged. The heart size is upper limits of normal. Impression: Unchanged, over 5 days, findings as above. Abdominal US - IMPRESSION: 1. Gallbladder is normal. 2. Hepatic steatosis. 3. 1.7 cm cyst right kidney. Impression. Chest x-ray - Procedure: XRAY Chest 1v Indication: Shortness of breath Technique: One view of the chest Comparison: 03/17/2020 Findings: Bilateral right greater than left infiltrates again demonstrated. The heart size is normal. There is a left arm PICC in good position. Impression: Unchanged, over 5 days, findings as above. Chest x-ray - 03/29/20 - Procedure: XRAY Chest 1v Indication: Cough Technique: One view of the chest Comparison: 03/28/2020 Findings: Bilateral infiltrates are unchanged or slightly worse, allowing for differences in exposure technique. The pleural spaces are clear. The heart size is normal. Stable satisfactory position of endotracheal tube, left arm PICC. Orogastric tube has retracted somewhat the position remains satisfactory. Impression: Stable to slightly worse bilateral infiltrates. Otherwise little pack changer one day Chest x-ray - 03/31/20 - Procedure: XRAY Chest 1v Indication: Post endotracheal tube repositioning Technique: One view of the chest Comparison: 3 hours earlier Findings: Interim advancement of endotracheal tube, tip projecting approximately 5 cm above the sunny. Interim advancement of orogastric tube as well. Bilateral infiltrates are unchanged. Left arm PICC remains Impression: Improved and now satisfactory tube positions as described. ICU nurse Maeve notified at the time of interpretation Chest x-ray - 04/02/20 - COMPARISON: Chest x-rays dated 03/31/20 and 03/12/20. FINDINGS: Lungs: No significant change in bilateral prominent interstitial markings. The lungs are otherwise clear without focal consolidation. Pleural space: Unremarkable. The costophrenic angles are sharp. No visible pneumothorax. Heart: Unremarkable. No cardiomegaly. Mediastinum: Unremarkable. Bones/joints: Unremarkable. Tubes, lines and devices: Endotracheal tube tip 6.5 cm above the sunny. NG tube tip in the distal stomach. Telemetry leads overlie the thorax. IMPRESSION: No significant change in bilateral prominent interstitial markings. Procedure: XRAY Chest 1v Procedure: XRAY Chest 1v Reason for study: Shortness of breath 04/06/20 - Comparison films: 04/02/2020. FINDINGS: Endotracheal tube and NG tube remain in place. There is worsening of right basilar infiltrates. Some haziness in left lung base unchanged. Cardiac and mediastinal silhouette are within normal limits. CP angles are sharp. The bony thorax appear unremarkable. IMPRESSION: Worsening of right basilar infiltrate. Chest x-ray - 04/09/20 - Procedure: XRAY Chest 1v FILM CXR 1 VIEW INDICATION: Infection COMPARISON: April 05, 2020 FINDINGS: Single frontal view demonstrates a normal cardiomediastinal silhouette. Endotracheal tube in place with tip above the sunny. Elevation of the right hemidiaphragm. Interstitial prominence with bilateral lower lobe infiltrates. Lung bases appear worse from the prior exam. Small right effusion. Right-sided PICC line with tip in the superior vena cava. Enteric tube in place. IMPRESSION: Interstitial prominence and bilateral lower lobe pneumonia with worsening appearance from the prior study. Chest x-ray - 04/12/20 - Procedure: XRAY Chest 1v Indication: Shortness of breath Technique: One view of the chest Comparison: 04/09/2020 Findings: Stable satisfactory tube and line positions. Bilateral infiltrates h ave worsened slightly since prior study. The heart size is normal. Impression: Worsening bilateral infiltrates, over 3 days Chest x-ray - 04/15/20 - COMPARISON: 02/11/21. FINDINGS: Lungs: There is been no significant change in mild to moderate patchy diffuse bilateral alveolar infiltrates which are most prominent in the lung bases. Pleural space: Unremarkable. No pneumothorax. Heart: Unremarkable. No cardiomegaly. Mediastinum: Unremarkable. Bones/joints: Unremarkable. Tubes, lines and devices: There is an endotracheal tube, right-sided PICC line and NG tube in good position. IMPRESSION: There is been no significant change in mild to moderate patchy diffuse bilateral alveolar infiltrates which are most prominent in the lung bases. Chest x-ray - 04/18/20 - Procedure: XRAY Chest 1v Indication: Cough Technique: One view of the chest Comparison: 04/15/2020 Findings: Less optimal inspiration currently than previously. Stable satisfactory positions of endotracheal and orogastric tubes and right arm PICC. Bilateral infiltrates are again demonstrated, unchanged. Impression: Unchanged, over 3 days, findings as above. Chest x-ray - 04/21/20 - Procedure: XRAY Chest 1v Indication: Dyspnea Technique: One view of the chest Comparison: 04/18/2020 Findings: Stable tube and line positions. Bilateral infiltrates are unchanged Impression: Unchanged, over one day, findings as above. Procedure: XRAY Chest 1v Procedure: XRAY Chest 1v Reason for study: Reason For Exam: SOB Chest x-ray - 04/25/20 - Comparison films: 04/21/2020. FINDINGS: Endotracheal tube, NG tube and right PICC line remain in place. Vascularity is normal. Bilateral infiltrates are unchanged. Cardiac and mediastinal silhouette are within normal limits. CP angles are sharp. The bony thorax appear unremarkable. IMPRESSION: NO SIGNIFICANT CHANGE COMPARED TO PREVIOUS EXAM. Chest x-rasy - 04/30/20 - FINDINGS: Lungs: Bilateral patchy pulmonary opacities concerning for pneumonia, not significantly changed compared to the prior chest x-ray. Pleural space: Unremarkable. The costophrenic angles are sharp. No visible pneumothorax. Heart: Unremarkable. No cardiomegaly. Mediastinum: Unremarkable. Bones/joints: Unremarkable. Tubes, lines and devices: Tracheostomy tube in place, with expected positioning. Telemetry leads overlie the thorax. Right arm PICC with catheter tip in the SVC region. IMPRESSION: Bilateral patchy pulmonary opacities concerning for pneumonia, not significantly changed compared to the prior chest x-ray. Microbiology Date/Time Source Procedure Growth Status 04/29/20 19:00 Blood Blood Culture - Preliminary NO GROWTH AFTER 24 HOURS Resulted 04/14/20 16:35 Stool Clostridium difficile Toxin Assay - Final Complete 04/12/20 08:40 Urine,Clean Catch Urine Culture - Final Cynthia Parapsilosis Complete 04/12/20 08:40 Sputum Gram Stain - Final Complete 04/12/20 08:40 Sputum Sputum Culture - Final NORMAL UPPER RESPIRATORY WILIAM AT 48 ... Complete Microbiology Date/Time Source Procedure Growth Status 04/29/20 19:00 Blood Blood Culture - Preliminary NO GROWTH AFTER 24 HOURS Resulted 04/29/20 18:50 Blood Blood Culture - Preliminary NO GROWTH AFTER 24 HOURS Resulted Laboratory Tests Test 05/01/20 00:27 05/01/20 03:48 05/01/20 06:43 POC Whole Blood Glucose 143 MG/DL (74-106) H Pending White Blood Count 7.8 K/UL (4.8-10.8) Red Blood Count 3.36 M/UL (4.70-6.10) L Hemoglobin 9.6 G/DL (14.2-18.0) L Hematocrit 30.5 % (42.0-52.0) L Mean Corpuscular Volume 91 FL (80-99) Mean Corpuscular Hemoglobin 28.5 PG (27.0-31.0) Mean Corpuscular Hemoglobin Concent 31.3 G/DL (32.0-36.0) L Red Cell Distribution Width 16.9 % (11.6-14.8) H Platelet Count 297 K/UL (150-450) Mean Platelet Volume 6.1 FL (6.5-10.1) L Neutrophils (%) (Auto) % (45.0-75.0) Lymphocytes (%) (Auto) % (20.0-45.0) Monocytes (%) (Auto) % (1.0-10.0) Eosinophils (%) (Auto) % (0.0-3.0) Basophils (%) (Auto) % (0.0-2.0) Sodium Level 146 MMOL/L (136-145) H Potassium Level 3.8 MMOL/L (3.5-5.1) Chloride Level 106 MMOL/L (98-107) Carbon Dioxide Level 31 MMOL/L (21-32) Anion Gap 9 mmol/L (5-15) Blood Urea Nitrogen 11 mg/dL (7-18) Creatinine 0.3 MG/DL (0.55-1.30) L Estimat Glomerular Filtration Rate > 60 mL/min (>60) Glucose Level 139 MG/DL (74-106) H Calcium Level 8.8 MG/DL (8.5-10.1) Phosphorus Level 3.6 MG/DL (2.5-4.9) Magnesium Level 2.0 MG/DL (1.8-2.4) Total Bilirubin 0.6 MG/DL (0.2-1.0) Direct Bilirubin 0.2 MG/DL (0.0-0.3) Aspartate Amino Transf (AST/SGOT) 18 U/L (15-37) Alanine Aminotransferase (ALT/SGPT) 46 U/L (12-78) Alkaline Phosphatase 153 U/L (46-116) H Total Protein 5.8 G/DL (6.4-8.2) L Albumin 2.5 G/DL (3.4-5.0) L Current Medications Medications (Trade) Dose Ordered Sig/Dennis Route PRN Reason Start Time Stop Time Status Last Admin Dose Admin Acetaminophen (Tylenol) 650 mg Q4H PRN ORAL Temp >100.5 04/13/20 00:30 05/13/20 00:29 04/28/20 20:49 Chlorhexidine Gluconate (Marlen-Hex 2%) 1 applic DAILY@1999 TOPIC 03/30/20 20:00 06/28/20 19:59 04/30/20 20:39 Dextrose (Dextrose 50%) 25 ml Q30M PRN IV Hypoglycemia 03/29/20 20:45 06/27/20 20:44 Dextrose (Dextrose 50%) 50 ml Q30M PRN IV Hypoglycemia 03/29/20 20:45 06/27/20 20:44 Enoxaparin Sodium (Lovenox) 80 mg EVERY 12 HOURS SUBQ 04/06/20 21:00 07/05/20 20:59 05/01/20 07:47 Fentanyl Citrate 250 ml @ 1 mls/hr Q24H PRN IV SEDATION 04/30/20 07:30 05/03/20 23:59 05/01/20 15:43 Hydralazine HCl (Apresoline) 10 mg Q4H PRN IV For High Blood Pressure 03/30/20 12:15 06/28/20 12:14 04/29/20 05:53 Insulin Aspart (NovoLOG) Q6HR SUBQ 03/30/20 00:00 06/28/20 00:00 04/28/20 17:48 Lansoprazole (Prevacid) 15 mg Q12HR GT 04/20/20 21:00 05/20/20 20:59 05/01/20 07:45 Lorazepam (Ativan) 1 mg THREE TIMES A DAY ORAL 05/01/20 13:00 05/08/20 12:59 05/01/20 17:59 Methylprednisolone Sodium Succinate (Solu-MEDROL) 20 mg Q12HR IVP 04/12/20 21:00 06/20/20 20:59 05/01/20 07:46 Midazolam HCl 200 ml @ 0 mls/hr Q24H PRN IV SEDATION 04/25/20 01:00 05/02/20 00:29 05/01/20 18:00 Quetiapine Fumarate (SEROqueL) 50 mg EVERY 8 HOURS ORAL 04/29/20 12:00 06/11/20 11:59 05/01/20 13:10 Trimethoprim/ Sulfamethoxazole (Bactrim-DS) 1 tab DAILY ORAL 04/30/20 09:00 05/07/20 08:59 05/01/20 07:46 Kisha Salazar MD May 01, 2020 18:31
--- NOTE | 2020-05-01 19:05 | NUR ---
RESPIRATORY NOTE: Received pt on AC VC 18, 750VT, 40%, PEEP +5. Pt is trach-dependent w/ a cuffed, Shiley 8 tube. Pt sedated/arousable. B/S andreea. rhonchi/diminished, sxn small amounts of thick/thin/frothy, pale-yellow secretions. Vent plugged into red outlet, alarms on & audible. BVM at bedside. Pt in no apparent distress at this time. Will continue to monitor pt.
[2020-05-01] MEDS: Dyna-Hex 2% Top Sol 2oz TOPIC SCH (20:25)
[2020-05-02] VITALS (64 sets, daily range): BP systolic 112–227; BP diastolic 49–103
[2020-05-02] MEDS: Versed 100mg/NS 200ml 200 ML IV SCH ×2 (05:25→18:21)
[2020-05-02] MEDS: fentaNYL 2500mcg/NS 250ml 250 ML IV PRN ×2 (05:29→18:22)
[2020-05-02 05:34] LABS: HEMATOCRIT 28.8 % (42.0-52.0); HEMOGLOBIN 9.1 G/DL (14.2-18.0); MEAN CORPUSCULAR VOLUME 91 FL (80-99); PLATELET COUNT 260 K/UL (150-450); RED BLOOD COUNT 3.17 M/UL (4.70-6.10); RED CELL DISTRIBUTION WIDTH 16.5 % (11.6-14.8); WHITE BLOOD COUNT 6.9 K/UL (4.8-10.8)
[2020-05-02 05:36] LABS: ANION GAP 6 mmol/L (5-15); BLOOD UREA NITROGEN 15 mg/dL (7-18); CALCIUM 8.7 MG/DL (8.5-10.1); CARBON DIOXIDE 31 MMOL/L (21-32); CHLORIDE 105 MMOL/L (98-107); CREATININE 0.4 MG/DL (0.55-1.30); POTASSIUM 3.9 MMOL/L (3.5-5.1); SODIUM 142 MMOL/L (136-145)
[2020-05-02] MEDS: NovoLOG Insulin Flexpen SUBQ SCH ×5 (06:00→23:45)
--- NOTE | 2020-05-02 07:15 | NUR ---
RESPIRATORY NOTE: PT received on AC/VC: 18, 750, 50%, +5. FiO2 was increased to 50% by Kiera MATHEW. Current SpO2 is 92%. Will titrate 02 as tolerated. Patient is tolerating change well. Alarms are on and audible. Vent circuit is secure and out of the way. Airway is secure and patent. No s/s of acute respiratory distress noted at this time. Will continue to closely monitor.
--- NOTE | 2020-05-02 07:16 | NUR ---
NURSE NOTES: Received pt from shift commander RN. Pt anxious at this time. Pt complaining of pain at his trach site. Fentanyl increased at this time. Pt alert to name, place, and purpose. Pt follows commands and answers questions by nodding/shaking head. Pt trach to ventilator. Pt Pt SpO2 91%. FIO2 increased to 50%. Will continue to monitor. Pt has gastrostomy tube. Site clean and dry and open to air. No pain or skin breakdown at this time. Pt skin dry. Generalized edema noted. Left arm swollen and weak. Right arm strength 3/5. Legs weak. Pt remains on sedation. Will ask MD to add PO medication so pt can wean off sedation. Will follow up. Bed in low position with bed alarm on and call light in reach.
[2020-05-02] MEDS: Solu-MEDROL 40mg Inj IVP SCH ×2 (08:31→21:01)
[2020-05-02] MEDS: LORazepam 1mg tab ORAL SCH ×3 (08:31→18:22)
[2020-05-02] MEDS: Bactrim-DS 1 tab ORAL SCH (08:31)
[2020-05-02] MEDS: Enoxaparin 80mg Inj SUBQ SCH ×2 (08:32→21:02)
--- NOTE | 2020-05-02 09:00 | NUR ---
NURSE NOTES: Pt remains anxious. Fentanyl and versed increased for comfort. Tylenol given. Will continue to monitor.
[2020-05-02] MEDS: Acetaminophen 650mg/20.3ml GT PRN (09:04)
--- NOTE | 2020-05-02 10:00 | NUR ---
NURSE NOTES: Dr Mata rounded on the pt. Notified him that pt unable to wean from sedation at this time as pt becomes anxious/complains of pain/ HR increases/BP increases/SpO2 drops. Dr Mata reported that he would adjust orders. Will follow up.
--- NOTE | 2020-05-02 10:12 | General Progress Note ---
Subjective ROS Limited/Unobtainable: No Allergies: Coded Allergies: No Known Allergies (Unverified , 02/05/20) Objective Last 24 Hour Vital Signs Date Time Temp Pulse Resp B/P (MAP) Pulse Ox O2 Delivery O2 Flow Rate FiO2 05/02/20 09:47 165/74 05/02/20 08:31 124 28 171/83 99 05/02/20 08:30 123 25 171/83 (112) 95 05/02/20 08:15 118 24 161/82 (108) 93 05/02/20 08:00 98.5 110 21 160/83 (108) 93 05/02/20 08:00 113 05/02/20 07:45 117 22 166/86 (112) 90 05/02/20 07:30 126 21 148/75 (99) 88 05/02/20 07:15 114 26 50 05/02/20 07:15 141 24 222/79 (126) 92 05/02/20 07:07 134 22 227/97 (140) 94 05/02/20 07:00 125 26 207/93 (131) 93 05/02/20 06:30 118 23 173/77 (109) 85 05/02/20 06:00 105 19 205/86 (125) 93 05/02/20 05:32 181/111 05/02/20 05:30 81 16 163/88 (113) 93 05/02/20 05:29 19 181/111 40 05/02/20 05:25 19 182/111 Mechanical Ventilator 40 05/02/20 05:20 90 22 40 05/02/20 05:00 88 21 171/95 (120) 95 05/02/20 04:00 Mechanical Ventilator 05/02/20 04:00 90 19 142/85 (104) 94 05/02/20 04:00 69 05/02/20 04:00 19 142/85 Mechanical Ventilator 40 05/02/20 04:00 40 05/02/20 03:15 67 18 40 05/02/20 03:00 80 13 93 05/02/20 03:00 19 144/85 Mechanical Ventilator 40 05/02/20 02:30 90 19 168/86 (113) 93 05/02/20 02:00 84 16 171/94 (119) 96 05/02/20 02:00 16 171/94 Mechanical Ventilator 40 05/02/20 01:30 72 18 144/70 (94) 98 05/02/20 01:11 72 18 40 05/02/20 01:00 16 139/82 Mechanical Ventilator 40 05/02/20 01:00 74 16 139/82 (101) 97 05/02/20 00:30 71 18 146/71 (96) 96 05/02/20 00:00 90 05/02/20 00:00 40 05/02/20 00:00 Mechanical Ventilator 05/02/20 00:00 19 146/74 Mechanical Ventilator 40 05/02/20 00:00 90 19 146/74 (98) 94 05/01/20 23:04 77 20 40 05/01/20 23:00 81 18 156/63 (94) 95 05/01/20 23:00 18 156/63 Mechanical Ventilator 40 05/01/20 23:00 18 156/63 Mechanical Ventilator 40 05/01/20 22:30 82 18 137/63 (87) 95 05/01/20 22:00 20 172/72 Mechanical Ventilator 40 05/01/20 22:00 20 172/72 Mechanical Ventilator 40 05/01/20 22:00 92 20 172/72 (105) 95 05/01/20 21:30 86 18 162/73 (102) 93 05/01/20 21:04 74 18 40 05/01/20 21:00 73 18 128/74 (92) 94 05/01/20 21:00 18 128/74 Mechanical Ventilator 40 05/01/20 21:00 18 128/74 Mechanical Ventilator 40 05/01/20 20:30 73 17 134/83 (100) 95 05/01/20 20:00 74 18 151/82 (105) 93 05/01/20 20:00 18 151/82 Mechanical Ventilator 40 05/01/20 20:00 18 151/82 40 05/01/20 20:00 71 05/01/20 20:00 Mechanical Ventilator 05/01/20 20:00 40 05/01/20 19:30 78 19 134/72 (92) 90 05/01/20 19:15 92 21 172/89 (116) 93 05/01/20 19:03 72 23 40 05/01/20 19:00 80 18 131/67 (88) 90 05/01/20 19:00 18 131/67 Mechanical Ventilator 40 05/01/20 19:00 18 131/67 Mechanical Ventilator 40 05/01/20 19:00 80 18 131/67 (88) 90 05/01/20 18:45 85 18 128/72 (90) 89 05/01/20 18:34 101 22 164/85 (111) 91 05/01/20 18:15 97 22 173/91 (118) 96 05/01/20 18:00 97 19 173/91 (118) 99 05/01/20 18:00 22 181/95 Mechanical Ventilator 40 05/01/20 18:00 114 22 180/90 (120) 91 05/01/20 17:59 117 22 181/95 90 05/01/20 17:45 104 20 181/95 (123) 92 05/01/20 17:30 77 17 155/81 (105) 93 05/01/20 17:15 58 18 120/68 (85) 94 05/01/20 17:00 100 23 120/68 (85) 93 05/01/20 16:45 65 18 121/67 (85) 93 05/01/20 16:30 64 18 126/67 (86) 92 05/01/20 16:15 63 18 117/67 (84) 95 05/01/20 16:00 65 18 127/67 (87) 94 05/01/20 16:00 Mechanical Ventilator 05/01/20 16:00 97.4 62 18 121/67 (85) 93 05/01/20 16:00 Mechanical Ventilator 05/01/20 16:00 40 05/01/20 16:00 62 05/01/20 15:50 65 18 40 05/01/20 15:45 68 18 131/69 (89) 94 05/01/20 15:43 18 143/68 Mechanical Ventilator 40 05/01/20 15:30 68 18 143/68 (93) 93 05/01/20 15:15 75 17 127/69 (88) 94 05/01/20 15:00 75 18 138/70 (92) 95 05/01/20 15:00 71 18 138/70 (92) 94 05/01/20 15:00 18 127/69 Mechanical Ventilator 40 05/01/20 15:00 18 127/69 Mechanical Ventilator 40 05/01/20 14:45 64 18 126/67 (86) 94 05/01/20 14:30 63 18 145/73 (97) 95 05/01/20 14:15 60 18 123/70 (87) 95 05/01/20 14:00 65 16 143/82 (102) 94 05/01/20 14:00 18 123/70 Mechanical Ventilator 40 05/01/20 14:00 18 123/70 Mechanical Ventilator 40 05/01/20 14:00 61 18 111/63 (79) 95 05/01/20 13:45 55 18 111/63 (79) 97 05/01/20 13:30 56 18 115/64 (81) 96 05/01/20 13:15 57 18 118/67 (84) 96 05/01/20 13:10 63 18 116/67 97 05/01/20 13:00 56 18 116/67 (83) 96 05/01/20 13:00 18 118/67 Mechanical Ventilator 40 05/01/20 13:00 18 118/67 Mechanical Ventilator 40 05/01/20 13:00 57 18 118/67 (84) 96 05/01/20 12:45 56 18 114/64 (81) 96 05/01/20 12:30 56 18 116/66 (83) 96 05/01/20 12:15 57 18 118/66 (83) 95 05/01/20 12:00 Mechanical Ventilator 05/01/20 12:00 57 05/01/20 12:00 57 18 118/66 (83) 95 05/01/20 12:00 97.2 58 18 121/68 (85) 96 05/01/20 12:00 18 118/66 Mechanical Ventilator 40 05/01/20 12:00 18 118/66 Mechanical Ventilator 40 05/01/20 12:00 Mechanical Ventilator 05/01/20 12:00 40 05/01/20 11:50 61 18 40 05/01/20 11:45 63 18 122/72 (89) 99 05/01/20 11:30 56 18 119/67 (84) 99 05/01/20 11:15 57 18 118/66 (83) 98 05/01/20 11:00 58 18 120/68 (85) 98 05/01/20 11:00 57 18 120/68 (85) 98 05/01/20 11:00 18 118/66 Mechanical Ventilator 50 05/01/20 11:00 18 118/66 Mechanical Ventilator 50 05/01/20 10:45 58 18 119/68 (85) 98 05/01/20 10:30 60 18 119/71 (87) 98 05/01/20 10:15 61 18 112/68 (83) 98 Intake and Output 05/01/20 05/02/20 19:00 07:00 Intake Total 1207.5 ml 864.45 ml Output Total 360 ml 850 ml Balance 847.5 ml 14.45 ml Free Water 240 ml IV Total 487.5 ml 424.45 ml Tube Feeding 480 ml 440 ml Output Urine Total 360 ml 850 ml Laboratory Tests 05/02/20 03:30: White Blood Count 6.9, Red Blood Count 3.17L, Hemoglobin 9.1L, Hematocrit 28.8L, Mean Corpuscular Volume 91, Mean Corpuscular Hemoglobin 28.6, Mean Corpuscular Hemoglobin Concent 31.4L, Red Cell Distribution Width 16.5H, Platelet Count 260, Mean Platelet Volume 6.5, Neutrophils (%) (Auto) , Lymphocytes (%) (Auto) , Monocytes (%) (Auto) , Eosinophils (%) (Auto) , Basophils (%) (Auto) , Differential Total Cells Counted 100, Neutrophils % (Manual) 80H, Lymphocytes % (Manual) 15L, Monocytes % (Manual) 4, Eosinophils % (Manual) 1, Basophils % (Manual) 0, Band Neutrophils 0, Platelet Estimate Adequate, Platelet Morphology Normal, Hypochromasia 1+, Anisocytosis 1+, Sodium Level 142, Potassium Level 3.9, Chloride Level 105, Carbon Dioxide Level 31, Anion Gap 6, Blood Urea Nitrogen 15, Creatinine 0.4L, Estimat Glomerular Filtration Rate > 60, Glucose Level 113H, Calcium Level 8.7 Height (Feet): 5 Height (Inches): 10.00 Weight (Pounds): 243 General Appearance: no apparent distress EENT: normal ENT inspection Neck: supple Cardiovascular: normal rate Respiratory/Chest: decreased breath sounds Abdomen: normal bowel sounds, non tender, soft Extremities: non-tender Assessment/Plan Status: not improved, unchanged Assessment/Plan: hep c + but neg RNA GTF reglan 10 mg tolerating TF repeat labs fu LFTS>>>improving will Da Wilson MD May 02, 2020 10:12
--- NOTE | 2020-05-02 10:25 | Pulmonology Progress Note ---
Subjective ROS Limited/Unobtainable: No Interval Events: S/p tracheostomy 04/25/20 Constitutional: Reports: other - s/p trach, no pressors, no + vent ; Denies: fever HEENT: Repors: no symptoms Respiratory: Reports: dry cough, shortness of breath Cardiovascular: Reports: no symptoms Gastrointestinal/Abdominal: Denies: nausea, vomiting, diarrhea Psychiatric: Reports: other - NA Skin: Denies: rash Musculoskeletal: Reports: other - NA Allergies: Coded Allergies: No Known Allergies (Unverified , 02/05/20) Objective Last 24 Hour Vital Signs Date Time Temp Pulse Resp B/P (MAP) Pulse Ox O2 Delivery O2 Flow Rate FiO2 05/02/20 09:47 165/74 05/02/20 08:31 124 28 171/83 99 05/02/20 08:30 123 25 171/83 (112) 95 05/02/20 08:15 118 24 161/82 (108) 93 05/02/20 08:00 98.5 110 21 160/83 (108) 93 05/02/20 08:00 113 05/02/20 07:45 117 22 166/86 (112) 90 05/02/20 07:30 126 21 148/75 (99) 88 05/02/20 07:15 114 26 50 05/02/20 07:15 141 24 222/79 (126) 92 05/02/20 07:07 134 22 227/97 (140) 94 05/02/20 07:00 125 26 207/93 (131) 93 05/02/20 06:30 118 23 173/77 (109) 85 05/02/20 06:00 105 19 205/86 (125) 93 05/02/20 05:32 181/111 05/02/20 05:30 81 16 163/88 (113) 93 05/02/20 05:29 19 181/111 40 05/02/20 05:25 19 182/111 Mechanical Ventilator 40 05/02/20 05:20 90 22 40 05/02/20 05:00 88 21 171/95 (120) 95 05/02/20 04:00 Mechanical Ventilator 05/02/20 04:00 90 19 142/85 (104) 94 05/02/20 04:00 69 05/02/20 04:00 19 142/85 Mechanical Ventilator 40 05/02/20 04:00 40 05/02/20 03:15 67 18 40 05/02/20 03:00 80 13 93 05/02/20 03:00 19 144/85 Mechanical Ventilator 40 05/02/20 02:30 90 19 168/86 (113) 93 05/02/20 02:00 84 16 171/94 (119) 96 05/02/20 02:00 16 171/94 Mechanical Ventilator 40 05/02/20 01:30 72 18 144/70 (94) 98 05/02/20 01:11 72 18 40 05/02/20 01:00 16 139/82 Mechanical Ventilator 40 05/02/20 01:00 74 16 139/82 (101) 97 05/02/20 00:30 71 18 146/71 (96) 96 05/02/20 00:00 90 05/02/20 00:00 40 05/02/20 00:00 Mechanical Ventilator 05/02/20 00:00 19 146/74 Mechanical Ventilator 40 05/02/20 00:00 90 19 146/74 (98) 94 05/01/20 23:04 77 20 40 05/01/20 23:00 81 18 156/63 (94) 95 05/01/20 23:00 18 156/63 Mechanical Ventilator 40 05/01/20 23:00 18 156/63 Mechanical Ventilator 40 05/01/20 22:30 82 18 137/63 (87) 95 05/01/20 22:00 20 172/72 Mechanical Ventilator 40 05/01/20 22:00 20 172/72 Mechanical Ventilator 40 05/01/20 22:00 92 20 172/72 (105) 95 05/01/20 21:30 86 18 162/73 (102) 93 05/01/20 21:04 74 18 40 05/01/20 21:00 73 18 128/74 (92) 94 05/01/20 21:00 18 128/74 Mechanical Ventilator 40 05/01/20 21:00 18 128/74 Mechanical Ventilator 40 05/01/20 20:30 73 17 134/83 (100) 95 05/01/20 20:00 74 18 151/82 (105) 93 05/01/20 20:00 18 151/82 Mechanical Ventilator 40 05/01/20 20:00 18 151/82 40 05/01/20 20:00 71 05/01/20 20:00 Mechanical Ventilator 05/01/20 20:00 40 05/01/20 19:30 78 19 134/72 (92) 90 05/01/20 19:15 92 21 172/89 (116) 93 05/01/20 19:03 72 23 40 05/01/20 19:00 80 18 131/67 (88) 90 05/01/20 19:00 18 131/67 Mechanical Ventilator 40 05/01/20 19:00 18 131/67 Mechanical Ventilator 40 05/01/20 19:00 80 18 131/67 (88) 90 05/01/20 18:45 85 18 128/72 (90) 89 05/01/20 18:34 101 22 164/85 (111) 91 05/01/20 18:15 97 22 173/91 (118) 96 05/01/20 18:00 97 19 173/91 (118) 99 05/01/20 18:00 22 181/95 Mechanical Ventilator 40 05/01/20 18:00 114 22 180/90 (120) 91 05/01/20 17:59 117 22 181/95 90 05/01/20 17:45 104 20 181/95 (123) 92 05/01/20 17:30 77 17 155/81 (105) 93 05/01/20 17:15 58 18 120/68 (85) 94 05/01/20 17:00 100 23 120/68 (85) 93 05/01/20 16:45 65 18 121/67 (85) 93 05/01/20 16:30 64 18 126/67 (86) 92 05/01/20 16:15 63 18 117/67 (84) 95 05/01/20 16:00 65 18 127/67 (87) 94 05/01/20 16:00 Mechanical Ventilator 05/01/20 16:00 97.4 62 18 121/67 (85) 93 05/01/20 16:00 Mechanical Ventilator 05/01/20 16:00 40 05/01/20 16:00 62 05/01/20 15:50 65 18 40 05/01/20 15:45 68 18 131/69 (89) 94 05/01/20 15:43 18 143/68 Mechanical Ventilator 40 05/01/20 15:30 68 18 143/68 (93) 93 05/01/20 15:15 75 17 127/69 (88) 94 05/01/20 15:00 75 18 138/70 (92) 95 05/01/20 15:00 71 18 138/70 (92) 94 05/01/20 15:00 18 127/69 Mechanical Ventilator 40 05/01/20 15:00 18 127/69 Mechanical Ventilator 40 05/01/20 14:45 64 18 126/67 (86) 94 05/01/20 14:30 63 18 145/73 (97) 95 05/01/20 14:15 60 18 123/70 (87) 95 05/01/20 14:00 65 16 143/82 (102) 94 05/01/20 14:00 18 123/70 Mechanical Ventilator 40 05/01/20 14:00 18 123/70 Mechanical Ventilator 40 05/01/20 14:00 61 18 111/63 (79) 95 05/01/20 13:45 55 18 111/63 (79) 97 05/01/20 13:30 56 18 115/64 (81) 96 05/01/20 13:15 57 18 118/67 (84) 96 05/01/20 13:10 63 18 116/67 97 05/01/20 13:00 56 18 116/67 (83) 96 05/01/20 13:00 18 118/67 Mechanical Ventilator 40 05/01/20 13:00 18 118/67 Mechanical Ventilator 40 05/01/20 13:00 57 18 118/67 (84) 96 05/01/20 12:45 56 18 114/64 (81) 96 05/01/20 12:30 56 18 116/66 (83) 96 05/01/20 12:15 57 18 118/66 (83) 95 05/01/20 12:00 Mechanical Ventilator 05/01/20 12:00 57 05/01/20 12:00 57 18 118/66 (83) 95 05/01/20 12:00 97.2 58 18 121/68 (85) 96 05/01/20 12:00 18 118/66 Mechanical Ventilator 40 05/01/20 12:00 18 118/66 Mechanical Ventilator 40 05/01/20 12:00 Mechanical Ventilator 05/01/20 12:00 40 05/01/20 11:50 61 18 40 05/01/20 11:45 63 18 122/72 (89) 99 05/01/20 11:30 56 18 119/67 (84) 99 05/01/20 11:15 57 18 118/66 (83) 98 05/01/20 11:00 58 18 120/68 (85) 98 05/01/20 11:00 57 18 120/68 (85) 98 05/01/20 11:00 18 118/66 Mechanical Ventilator 50 05/01/20 11:00 18 118/66 Mechanical Ventilator 50 05/01/20 10:45 58 18 119/68 (85) 98 05/01/20 10:30 60 18 119/71 (87) 98 Intake and Output 05/01/20 05/02/20 19:00 07:00 Intake Total 1207.5 ml 864.45 ml Output Total 360 ml 850 ml Balance 847.5 ml 14.45 ml Free Water 240 ml IV Total 487.5 ml 424.45 ml Tube Feeding 480 ml 440 ml Output Urine Total 360 ml 850 ml General Appearance: WD/WN, no acute distress HEENT: normocephalic, atraumatic, status post trach Respiratory: chest wall non-tender Cardiovascular: normal rate, regular rhythm Abdomen: normal bowel sounds, soft, non tender, other - obese Microbiology Date/Time Source Procedure Growth Status 04/29/20 19:00 Blood Blood Culture - Preliminary NO GROWTH AFTER 48 HOURS Resulted 04/29/20 18:50 Blood Blood Culture - Preliminary NO GROWTH AFTER 48 HOURS Resulted Laboratory Tests 05/02/20 03:30: White Blood Count 6.9, Red Blood Count 3.17L, Hemoglobin 9.1L, Hematocrit 28.8L, Mean Corpuscular Volume 91, Mean Corpuscular Hemoglobin 28.6, Mean Corpuscular Hemoglobin Concent 31.4L, Red Cell Distribution Width 16.5H, Platelet Count 260, Mean Platelet Volume 6.5, Neutrophils (%) (Auto) , Lymphocytes (%) (Auto) , Monocytes (%) (Auto) , Eosinophils (%) (Auto) , Basophils (%) (Auto) , Differential Total Cells Counted 100, Neutrophils % (Manual) 80H, Lymphocytes % (Manual) 15L, Monocytes % (Manual) 4, Eosinophils % (Manual) 1, Basophils % (Manual) 0, Band Neutrophils 0, Platelet Estimate Adequate, Platelet Morphology Normal, Hypochromasia 1+, Anisocytosis 1+, Sodium Level 142, Potassium Level 3.9, Chloride Level 105, Carbon Dioxide Level 31, Anion Gap 6, Blood Urea Nitrogen 15, Creatinine 0.4L, Estimat Glomerular Filtration Rate > 60, Glucose Level 113H, Calcium Level 8.7 Current Medications Medications (Trade) Dose Ordered Sig/Dennis Route PRN Reason Start Time Stop Time Status Last Admin Dose Admin Acetaminophen (Tylenol) 650 mg Q4H PRN GT Mild Pain (Pain Scale 1-3) 05/02/20 08:45 06/01/20 08:44 05/02/20 09:04 Chlorhexidine Gluconate (Marlen-Hex 2%) 1 applic DAILY@2000 TOPIC 03/30/20 20:00 06/28/20 19:59 05/01/20 20:25 Dextrose (Dextrose 50%) 25 ml Q30M PRN IV Hypoglycemia 03/29/20 20:45 06/27/20 20:44 Dextrose (Dextrose 50%) 50 ml Q30M PRN IV Hypoglycemia 03/29/20 20:45 06/27/20 20:44 Enoxaparin Sodium (Lovenox) 80 mg EVERY 12 HOURS SUBQ 04/06/20 21:00 07/05/20 20:59 05/02/20 08:32 Fentanyl Citrate 250 ml @ 1 mls/hr Q24H PRN IV SEDATION 04/30/20 07:30 05/03/20 23:59 05/02/20 05:29 Hydralazine HCl (Apresoline) 10 mg Q4H PRN IV For High Blood Pressure 03/30/20 12:15 06/28/20 12:14 05/02/20 09:47 Insulin Aspart (NovoLOG) Q6HR SUBQ 03/30/20 00:00 06/28/20 00:00 05/01/20 18:00 Lansoprazole (Prevacid) 30 mg DAILY GT 05/02/20 09:00 06/01/20 08:59 05/02/20 09:04 Lorazepam (Ativan) 1 mg THREE TIMES A DAY ORAL 05/01/20 13:00 05/08/20 12:59 05/02/20 08:31 Methylprednisolone Sodium Succinate (Solu-MEDROL) 20 mg Q12HR IVP 04/12/20 21:00 06/20/20 20:59 05/02/20 08:31 Midazolam HCl 200 ml @ 0 mls/hr Q24H IV 05/02/20 05:00 05/09/20 04:59 05/02/20 05:25 Quetiapine Fumarate (SEROqueL) 50 mg EVERY 8 HOURS ORAL 04/29/20 12:00 06/11/20 11:59 05/02/20 05:30 Trimethoprim/ Sulfamethoxazole (Bactrim-DS) 1 tab DAILY ORAL 04/30/20 09:00 05/07/20 08:59 05/02/20 08:31 Assessment/Plan Assessment/Plan 1.COVID-19 pneumonia. - Completed specific therapies - On solumedrol 20 Iv q 12 - will add bactrim for PJP prophylaxis 2. DVT ppx - on lovenox 3. Hypertension - no longer on meds - Not requiring pressors 4. Leukocytosis; - ID following - Off abx - Candidemia documented 03/18/20 5. Elevated LFT - positive Hep C; treated in the past with IF 6. Respiratory failure -Intubated 03/28/20; s/p tracheostomy 04/25/20 -Family aware - Prognosis guarded - Vt 750; rate 18 -On sedation; will wean off; increased Seroquel to 50 TID; added Ativan 1mg TID 7. Discussed with cardiology -No evidence for cardiac dysfunction or PE 8. AMS -back on sedation S/p PICC line Noted left upper extremity swelling. Has DVT; on full dose Lovenox Will wean down FiO2 as tolerated CXR shows bilateral interstitial changes? fibrosis? S/p PEG Off IV fluids Increase tube feedings Dc planning to subacute On seroquel 50 mg PO TID On Ativan Will add [place] Attempt to wean and dc Versed and Fentanyl John Mata MD May 02, 2020 10:25
--- NOTE | 2020-05-02 10:46 | NUR ---
NURSE NOTES: Dr Rausch rounded on the pt. Update given.
--- NOTE | 2020-05-02 10:48 | Surgery Progress Note ---
Surgery Progress Note Subjective Procedure Performed tracheostomy Additional Comments improved no n/v agitated weaning sedation weaning vent trach okay Objective Last 24 Hour Vital Signs Date Time Temp Pulse Resp B/P (MAP) Pulse Ox O2 Delivery O2 Flow Rate FiO2 05/02/20 10:30 92 11 146/70 (95) 95 05/02/20 10:15 97 15 131/76 (94) 96 05/02/20 10:00 94 19 151/73 (99) 95 05/02/20 09:47 165/74 05/02/20 09:45 95 20 165/74 (104) 94 05/02/20 09:30 96 20 175/84 (114) 93 05/02/20 09:15 104 22 169/72 (104) 94 05/02/20 09:00 107 22 156/103 (120) 92 05/02/20 08:45 124 21 139/85 (103) 94 05/02/20 08:31 124 28 171/83 99 05/02/20 08:30 123 25 171/83 (112) 95 05/02/20 08:15 118 24 161/82 (108) 93 05/02/20 08:00 Mechanical Ventilator 05/02/20 08:00 98.5 110 21 160/83 (108) 93 05/02/20 08:00 113 05/02/20 08:00 50 05/02/20 07:45 117 22 166/86 (112) 90 05/02/20 07:30 126 21 148/75 (99) 88 05/02/20 07:15 114 26 50 05/02/20 07:15 141 24 222/79 (126) 92 05/02/20 07:07 134 22 227/97 (140) 94 05/02/20 07:00 125 26 207/93 (131) 93 05/02/20 06:30 118 23 173/77 (109) 85 05/02/20 06:00 105 19 205/86 (125) 93 05/02/20 05:32 181/111 05/02/20 05:30 81 16 163/88 (113) 93 05/02/20 05:29 19 181/111 40 05/02/20 05:25 19 182/111 Mechanical Ventilator 40 05/02/20 05:20 90 22 40 05/02/20 05:00 88 21 171/95 (120) 95 05/02/20 04:00 Mechanical Ventilator 05/02/20 04:00 90 19 142/85 (104) 94 05/02/20 04:00 69 05/02/20 04:00 19 142/85 Mechanical Ventilator 40 05/02/20 04:00 40 05/02/20 03:15 67 18 40 05/02/20 03:00 80 13 93 05/02/20 03:00 19 144/85 Mechanical Ventilator 40 05/02/20 02:30 90 19 168/86 (113) 93 05/02/20 02:00 84 16 171/94 (119) 96 05/02/20 02:00 16 171/94 Mechanical Ventilator 40 05/02/20 01:30 72 18 144/70 (94) 98 05/02/20 01:11 72 18 40 05/02/20 01:00 16 139/82 Mechanical Ventilator 40 05/02/20 01:00 74 16 139/82 (101) 97 05/02/20 00:30 71 18 146/71 (96) 96 05/02/20 00:00 90 05/02/20 00:00 40 05/02/20 00:00 Mechanical Ventilator 05/02/20 00:00 19 146/74 Mechanical Ventilator 40 05/02/20 00:00 90 19 146/74 (98) 94 05/01/20 23:04 77 20 40 05/01/20 23:00 81 18 156/63 (94) 95 05/01/20 23:00 18 156/63 Mechanical Ventilator 40 05/01/20 23:00 18 156/63 Mechanical Ventilator 40 05/01/20 22:30 82 18 137/63 (87) 95 05/01/20 22:00 20 172/72 Mechanical Ventilator 40 05/01/20 22:00 20 172/72 Mechanical Ventilator 40 05/01/20 22:00 92 20 172/72 (105) 95 05/01/20 21:30 86 18 162/73 (102) 93 05/01/20 21:04 74 18 40 05/01/20 21:00 73 18 128/74 (92) 94 05/01/20 21:00 18 128/74 Mechanical Ventilator 40 05/01/20 21:00 18 128/74 Mechanical Ventilator 40 05/01/20 20:30 73 17 134/83 (100) 95 05/01/20 20:00 74 18 151/82 (105) 93 05/01/20 20:00 18 151/82 Mechanical Ventilator 40 05/01/20 20:00 18 151/82 40 05/01/20 20:00 71 05/01/20 20:00 Mechanical Ventilator 05/01/20 20:00 40 05/01/20 19:30 78 19 134/72 (92) 90 05/01/20 19:15 92 21 172/89 (116) 93 05/01/20 19:03 72 23 40 05/01/20 19:00 80 18 131/67 (88) 90 05/01/20 19:00 18 131/67 Mechanical Ventilator 40 05/01/20 19:00 18 131/67 Mechanical Ventilator 40 05/01/20 19:00 80 18 131/67 (88) 90 05/01/20 18:45 85 18 128/72 (90) 89 05/01/20 18:34 101 22 164/85 (111) 91 05/01/20 18:15 97 22 173/91 (118) 96 05/01/20 18:00 97 19 173/91 (118) 99 05/01/20 18:00 22 181/95 Mechanical Ventilator 40 05/01/20 18:00 114 22 180/90 (120) 91 05/01/20 17:59 117 22 181/95 90 05/01/20 17:45 104 20 181/95 (123) 92 05/01/20 17:30 77 17 155/81 (105) 93 05/01/20 17:15 58 18 120/68 (85) 94 05/01/20 17:00 100 23 120/68 (85) 93 05/01/20 16:45 65 18 121/67 (85) 93 05/01/20 16:30 64 18 126/67 (86) 92 05/01/20 16:15 63 18 117/67 (84) 95 05/01/20 16:00 65 18 127/67 (87) 94 05/01/20 16:00 Mechanical Ventilator 05/01/20 16:00 97.4 62 18 121/67 (85) 93 05/01/20 16:00 Mechanical Ventilator 05/01/20 16:00 40 05/01/20 16:00 62 05/01/20 15:50 65 18 40 05/01/20 15:45 68 18 131/69 (89) 94 05/01/20 15:43 18 143/68 Mechanical Ventilator 40 05/01/20 15:30 68 18 143/68 (93) 93 05/01/20 15:15 75 17 127/69 (88) 94 05/01/20 15:00 75 18 138/70 (92) 95 05/01/20 15:00 71 18 138/70 (92) 94 05/01/20 15:00 18 127/69 Mechanical Ventilator 40 05/01/20 15:00 18 127/69 Mechanical Ventilator 40 05/01/20 14:45 64 18 126/67 (86) 94 05/01/20 14:30 63 18 145/73 (97) 95 05/01/20 14:15 60 18 123/70 (87) 95 05/01/20 14:00 65 16 143/82 (102) 94 05/01/20 14:00 18 123/70 Mechanical Ventilator 40 05/01/20 14:00 18 123/70 Mechanical Ventilator 40 05/01/20 14:00 61 18 111/63 (79) 95 05/01/20 13:45 55 18 111/63 (79) 97 05/01/20 13:30 56 18 115/64 (81) 96 05/01/20 13:15 57 18 118/67 (84) 96 05/01/20 13:10 63 18 116/67 97 05/01/20 13:00 56 18 116/67 (83) 96 05/01/20 13:00 18 118/67 Mechanical Ventilator 40 05/01/20 13:00 18 118/67 Mechanical Ventilator 40 05/01/20 13:00 57 18 118/67 (84) 96 05/01/20 12:45 56 18 114/64 (81) 96 05/01/20 12:30 56 18 116/66 (83) 96 05/01/20 12:15 57 18 118/66 (83) 95 05/01/20 12:00 Mechanical Ventilator 05/01/20 12:00 57 05/01/20 12:00 57 18 118/66 (83) 95 05/01/20 12:00 97.2 58 18 121/68 (85) 96 05/01/20 12:00 18 118/66 Mechanical Ventilator 40 05/01/20 12:00 18 118/66 Mechanical Ventilator 40 05/01/20 12:00 Mechanical Ventilator 05/01/20 12:00 40 05/01/20 11:50 61 18 40 05/01/20 11:45 63 18 122/72 (89) 99 05/01/20 11:30 56 18 119/67 (84) 99 05/01/20 11:15 57 18 118/66 (83) 98 05/01/20 11:00 58 18 120/68 (85) 98 05/01/20 11:00 57 18 120/68 (85) 98 05/01/20 11:00 18 118/66 Mechanical Ventilator 50 05/01/20 11:00 18 118/66 Mechanical Ventilator 50 I&O Intake and Output 05/01/20 05/02/20 19:00 07:00 Intake Total 1207.5 ml 864.45 ml Output Total 360 ml 850 ml Balance 847.5 ml 14.45 ml Free Water 240 ml IV Total 487.5 ml 424.45 ml Tube Feeding 480 ml 440 ml Output Urine Total 360 ml 850 ml Dressing: saturated Cardiovascular: RSR Respiratory: decreased breath sounds Abdomen: soft, non-tender, present bowel sounds, non-distended Extremities: no tenderness, no cyanosis Laboratory Tests Test 05/02/20 03:30 White Blood Count 6.9 K/UL (4.8-10.8) Red Blood Count 3.17 M/UL (4.70-6.10) L Hemoglobin 9.1 G/DL (14.2-18.0) L Hematocrit 28.8 % (42.0-52.0) L Mean Corpuscular Volume 91 FL (80-99) Mean Corpuscular Hemoglobin 28.6 PG (27.0-31.0) Mean Corpuscular Hemoglobin Concent 31.4 G/DL (32.0-36.0) L Red Cell Distribution Width 16.5 % (11.6-14.8) H Platelet Count 260 K/UL (150-450) Mean Platelet Volume 6.5 FL (6.5-10.1) Neutrophils (%) (Auto) % (45.0-75.0) Lymphocytes (%) (Auto) % (20.0-45.0) Monocytes (%) (Auto) % (1.0-10.0) Eosinophils (%) (Auto) % (0.0-3.0) Basophils (%) (Auto) % (0.0-2.0) Differential Total Cells Counted 100 Neutrophils % (Manual) 80 % (45-75) H Lymphocytes % (Manual) 15 % (20-45) L Monocytes % (Manual) 4 % (1-10) Eosinophils % (Manual) 1 % (0-3) Basophils % (Manual) 0 % (0-2) Band Neutrophils 0 % (0-8) Platelet Estimate Adequate Platelet Morphology Normal Hypochromasia 1+ Anisocytosis 1+ Sodium Level 142 MMOL/L (136-145) Potassium Level 3.9 MMOL/L (3.5-5.1) Chloride Level 105 MMOL/L (98-107) Carbon Dioxide Level 31 MMOL/L (21-32) Anion Gap 6 mmol/L (5-15) Blood Urea Nitrogen 15 mg/dL (7-18) Creatinine 0.4 MG/DL (0.55-1.30) L Estimat Glomerular Filtration Rate > 60 mL/min (>60) Glucose Level 113 MG/DL (74-106) H Calcium Level 8.7 MG/DL (8.5-10.1) Plan Problems: (1) Pneumonia (2) Staphylococcus aureus bacteremia (3) COVID-19 virus infection (4) Chest pain (5) Hypertension (6) Dehydration (7) Electrolyte imbalance (8) DMII (diabetes mellitus, type 2) (9) Protein malnutrition (10) Respiratory insufficiency Assessment & Plan: 64-year-old male with respiratory insufficiency intubated in an intensive care unit. Patient has been unable to safely wean off ventilatory support. Surgery called to evaluate for tracheostomy. After careful evaluation patient is a candidate for tracheostomy. In the meantime will obtain consent. If consent obtained will proceed with scheduling. Thank you for your participation's care will follow recommendations improving trach okay agitated weaning sedation no n/v cont weaning transition to oral meds via g tube get off drBooker Rahman May 02, 2020 10:48
[2020-05-02] MEDS: HYDROcodone/Acetamin 5/325 tab GT SCH ×4 (11:16→22:10)
--- NOTE | 2020-05-02 11:19 | NUR ---
RESPIRATORY NOTE: FiO2 decreased from 50% to 45%. PT tolerating change well. Kiera MATHEW aware. Will continue to monitor.
--- NOTE | 2020-05-02 12:00 | NUR ---
NURSE NOTES: Pt calm and cooperative at this time. Sedation titrated down. Will continue to titrate as tolerated. All other VS WNL.
--- NOTE | 2020-05-02 13:00 | Nephrology Progress Note ---
Assessment/Plan Problem List: (1) Dehydration (2) Electrolyte imbalance (3) COVID-19 virus infection (4) Pneumonia (5) DMII (diabetes mellitus, type 2) (6) Protein malnutrition Assessment Azotemia, hypernatremia Hypoalbuminemia Staff Otilia bacteremia COVID-19 isolation, pneumonia, bilateral infiltrate Hypertension Diabetes mellitus History of smoking Plan May 02: Labs reviewed. Status quo. Patient is trached and vented. Also has PEG. Is full code. Stable from renal standpoint of view. May 01: Labs reviewed. Status quo. Patient has trach connected to vent. Has PEG. He is full code. FiO2 50%. April 30: Status quo. Labs reviewed. Renal parameters stable. Medication l ist reviewed. April 29: Status quo. Received PEG yesterday. Has trach connected to vent. FiO2 40%. Labs reviewed. Medication list reviewed. Continue same April 28: Status quo. Labs reviewed. Renal parameters stable. Patient n.p.o. due for PEG insertion. IV changed to D5 normal saline. Continue per consultants. April 27: Status quo. Labs reviewed. Medication list reviewed. Stable from renal standpoint of view. Abnormal electrolytes addressed. April 26: Patient is now trached and connected to vent. FiO2 70%. Labs reviewed. Renal parameters stable. Medication list reviewed. Continue per consultants. April 25: Status quo. Full code. FiO2 55%. No labs drawn today. Continue to monitor electrolytes and renal parameters. Continue per consultants. April 24: Status quo. Full code. Intubated on ventilator. FiO2 65%. Labs reviewed. Renal parameters and electrolytes stable. April 23: Status unchanged. Full code. Intubated on ventilator. FiO2 75%. Labs reviewed. Renal parameters stable. Continue per consultants. April 22: Labs reviewed. Patient remains intubated on ventilator and full code. FiO2 90%. Day 77 hospitalization. Not much to add from renal standpoint of view April 21: No CHEM panel drawn today. FiO2 60%. Patient full code. Continue per consultants. April 20: Labs reviewed. Renal parameters stable. Patient remains full code. Intubated on ventilator with FiO2 currently at 70%. Continue per consultants. April 19: No labs drawn today. Remains full code on FiO2 of 100%. Continue per consultants. April 18: Status quo. Labs reviewed. Renal parameters stable. April 17: Status quo. Intubated on ventilator. Full code. Labs reviewed. Electrolytes and renal parameters stable. Continue per consultants. April 16: Girlfriend in the room. Patient awake. Intubated. Full code. Labs reviewed. Abnormal electrolyte addressed. Continue per consultants. April 15: Labs reviewed. Electrolytes and renal parameters stable. Patient full code. Continues to be intubated on ventilator. April 14: Status quo. Labs reviewed. Remains intubated on ventilator. Full code. Continue per consultants. April 13: Status quo. Labs reviewed. Renal parameters electrolytes stable. Continue per current treatment plan. April 12: On higher FiO2. Will resume Lasix daily. Continue to monitor electrolytes and renal parameters. Per consultants. April 11: FiO2 went up to 85%. Renal parameters and electrolytes reasonably well-maintained. Will monitor serum potassium. Will give IV Lasix. April 10: Status quo. Labs reviewed. Remains intubated on ventilator with FiO2 of 65%. Remains full code. Stable from renal standpoint to view. Repeat vitamin D level on April 08 pending April 09: Status quo. Labs reviewed. Stable from renal standpoint of view. Continue per consultants. April 08: Discussed with RN. Labs reviewed. Clinically improving. Requires lower PEEP. Continue per pulmonary. Continue to monitor renal parameters. April 07: Remains full code and on ventilator. Labs reviewed. Renal parameters and electrolytes stable. Continue per consultants. Blood pressure marginally improved. April 06: Full code. On ventilator. Blood pressure 80-90 systolic. IV Lasix discontinued. Free water through tube feeding ordered. Continue to monitor electrolytes and serum sodium. Down on fentanyl as possible. Discussed with PRIYANKA Brown. Clonidine patch discontinued. April 05: Status quo. Remains full code. Remains intubated. Labs reviewed. Renal parameters stable. Serum sodium 150 unchanged. Continue per consultants. April 04: Remains intubated and on ventilator. Remains full code. Labs reviewed. Serum sodium 150 unchanged. Renal parameters stable. Continue per ID and pulmonary. April 03: Intubated. On ventilator. Full code. Labs reviewed. Serum sodium 150 unchanged. Continue to monitor renal parameters. Continue per pulmonary and ID. April 02: Full code. On ventilator. Discussed with RN. Serum sodium slightly higher. Will cut down on IV Lasix. Continue per consultants. Continue to monitor renal parameters and electrolytes. April 01: Full code. Remains on ventilator. Labs reviewed. Stable from renal standpoint of view. Continue per consultants. March 31: Full code . Remains intubated on ventilator. Labs reviewed. Patient appears toxic. Discussed with RN. Maintenance IV discontinued. Medication list reviewed. Blood pressure medication stopped due to low blood pressure. Levemir insulin stopped. Continue monitor blood sugar and sliding scale insulin. March 30: Full code. On ventilator. Labs reviewed. Clonidine patch dose increased. Lasix increased. 3% saline 1 time ordered. Continue to monitor electrolytes and renal parameters. March 29: Remains full code. On mechanical ventilation. On tube feeding. Will DC TPN. Will start on maintenance IV fluid. Continue to monitor renal parameters. March 28: On BiPAP. Full code. On TPN. Labs reviewed. Discussed with pharmacy. Continue as is. Watch serum potassium. March 27: Remains on BiPAP. No chemistry panel done today. Full code. On TPN. Will check lab tomorrow. March 26: Remains on BiPAP. Remains on TPN. Labs reviewed. Electrolytes and chemistries within normal limits. Continue as is. March 25: Remains on TPN. Labs reviewed. Discussed with pharmacy. Change IV Protonix to p.o. Continue 3% saline infusion with Lasix. Patient full code. March 24: Continue to be on TPN. Labs are reviewed. Aim to collect electrolytes. Discussed with pharmacy. Continue current consultants. March 23: Continues to be on TPN. Labs reviewed. Electrolytes and ch emistries all acceptable. Discussed with pharmacy. Continue current management. March 22: On TPN. Labs reviewed. Low sodium noted. 3% saline to be continued. Continue to monitor electrolytes. Discussed with pharmacy. March 21: On TPN. Labs reviewed. Continue 3% saline and Lasix for mild hyponatremia. Continue TPN as these. Discussed with pharmacy. March 20: Remains on TPN. Labs reviewed. Serum sodium higher on IV Lasix and 3% saline infusion. Continue TPN as is. Continue to monitor renal parameters and electrolytes. Discussed with Dr. Mata March 19: Remains on TPN. Labs reviewed. Serum sodium 128. Will give 3% saline with IV Lasix. Continue to monitor electrolytes. No change in TPN composition. Discussed with pharmacy. March 18: Remains on TPN. Labs reviewed. Discussed with pharmacist. Will give 3 doses of IV Lasix 20 mg every 8 hours. Continue to monitor serum sodium electrolytes uric acid. White blood cells down. Continue per consultants. March 17: On TPN. Labs reviewed. Discussed with pharmacist. Sodium content increase. Continue to monitor CMP. Patient continues to have leukocytosis. March 16: On TPN. Labs reviewed. Discussed with pharmacist. Appropriate changes made. Continue to monitor electrolytes. March 15: Remains on TPN. Labs reviewed. Discussed with pharmacist. Continue per current management. March 14: Remains on TPN. Labs reviewed, stable. Vitamin D level low, replacement ordered. Continue to monitor electrolytes and renal parameters. March 13: Patient remains on TPN. Discussed with pharmacist. TPN's sodium content adjusted. Labs reviewed. Continue to monitor electrolytes. Blood pressure remains stable. Continue per consultants. March 12: Patient on TPN. Labs reviewed. CPK remains elevated. Abnormal electrolytes and high blood sugar discussed with pharmacist and TPN adjusted. Continue to monitor labs. Oral Protonix added. Ibuprofen discontinued. Can continue to monitor electrolytes and chemistries. Levemir for high blood sugar added. March 11: Patient on TPN. Labs as of 11:15 AM is still pending. Continue per current treatment plan. Will check labs and adjust TPN as needed. Continue per consultants. March 10: Patient on TPN. Labs reviewed. Electrolytes overall stable. CPK is elevated. Will monitor electrolyte, CPK level, lipid panel. Continue per consultants. Discussed with pharmacist. Discussed with RN. Nutritional evaluation noted. Previously: D5W 100 cc an hour Monitor electrolytes renal parameters TPN and Intralipid ordered Will follow Continue per consultants Dietary consult requested Subjective ROS Limited/Unobtainable: Yes Objective Objective Last 24 Hour Vital Signs Date Time Temp Pulse Resp B/P (MAP) Pulse Ox O2 Delivery O2 Flow Rate FiO2 05/02/20 12:33 86 20 114/54 98 05/02/20 11:19 99 20 96 Mechanical Ventilator 45 05/02/20 11:19 99 20 45 05/02/20 10:30 92 11 146/70 (95) 95 05/02/20 10:15 97 15 131/76 (94) 96 05/02/20 10:00 94 19 151/73 (99) 95 05/02/20 09:47 165/74 05/02/20 09:45 95 20 165/74 (104) 94 05/02/20 09:30 96 20 175/84 (114) 93 05/02/20 09:15 104 22 169/72 (104) 94 05/02/20 09:00 107 22 156/103 (120) 92 05/02/20 08:45 124 21 139/85 (103) 94 05/02/20 08:31 124 28 171/83 99 05/02/20 08:30 123 25 171/83 (112) 95 05/02/20 08:15 118 24 161/82 (108) 93 05/02/20 08:00 Mechanical Ventilator 05/02/20 08:00 98.5 110 21 160/83 (108) 93 05/02/20 08:00 113 05/02/20 08:00 50 05/02/20 07:45 117 22 166/86 (112) 90 05/02/20 07:30 126 21 148/75 (99) 88 05/02/20 07:15 114 26 50 05/02/20 07:15 141 24 222/79 (126) 92 05/02/20 07:07 134 22 227/97 (140) 94 05/02/20 07:00 125 26 207/93 (131) 93 05/02/20 06:30 118 23 173/77 (109) 85 05/02/20 06:00 105 19 205/86 (125) 93 05/02/20 05:32 181/111 05/02/20 05:30 81 16 163/88 (113) 93 05/02/20 05:29 19 181/111 40 05/02/20 05:25 19 182/111 Mechanical Ventilator 40 05/02/20 05:20 90 22 40 05/02/20 05:00 88 21 171/95 (120) 95 05/02/20 04:00 Mechanical Ventilator 05/02/20 04:00 90 19 142/85 (104) 94 05/02/20 04:00 69 05/02/20 04:00 19 142/85 Mechanical Ventilator 40 05/02/20 04:00 40 05/02/20 03:15 67 18 40 05/02/20 03:00 80 13 93 05/02/20 03:00 19 144/85 Mechanical Ventilator 40 05/02/20 02:30 90 19 168/86 (113) 93 05/02/20 02:00 84 16 171/94 (119) 96 05/02/20 02:00 16 171/94 Mechanical Ventilator 40 05/02/20 01:30 72 18 144/70 (94) 98 05/02/20 01:11 72 18 40 05/02/20 01:00 16 139/82 Mechanical Ventilator 40 05/02/20 01:00 74 16 139/82 (101) 97 05/02/20 00:30 71 18 146/71 (96) 96 05/02/20 00:00 90 05/02/20 00:00 40 05/02/20 00:00 Mechanical Ventilator 05/02/20 00:00 19 146/74 Mechanical Ventilator 40 05/02/20 00:00 90 19 146/74 (98) 94 05/01/20 23:04 77 20 40 05/01/20 23:00 81 18 156/63 (94) 95 05/01/20 23:00 18 156/63 Mechanical Ventilator 40 05/01/20 23:00 18 156/63 Mechanical Ventilator 40 05/01/20 22:30 82 18 137/63 (87) 95 05/01/20 22:00 20 172/72 Mechanical Ventilator 40 05/01/20 22:00 20 172/72 Mechanical Ventilator 40 05/01/20 22:00 92 20 172/72 (105) 95 05/01/20 21:30 86 18 162/73 (102) 93 05/01/20 21:04 74 18 40 05/01/20 21:00 73 18 128/74 (92) 94 05/01/20 21:00 18 128/74 Mechanical Ventilator 40 05/01/20 21:00 18 128/74 Mechanical Ventilator 40 05/01/20 20:30 73 17 134/83 (100) 95 05/01/20 20:00 74 18 151/82 (105) 93 05/01/20 20:00 18 151/82 Mechanical Ventilator 40 05/01/20 20:00 18 151/82 40 05/01/20 20:00 71 05/01/20 20:00 Mechanical Ventilator 05/01/20 20:00 40 05/01/20 19:30 78 19 134/72 (92) 90 05/01/20 19:15 92 21 172/89 (116) 93 05/01/20 19:03 72 23 40 05/01/20 19:00 80 18 131/67 (88) 90 05/01/20 19:00 18 131/67 Mechanical Ventilator 40 05/01/20 19:00 18 131/67 Mechanical Ventilator 40 05/01/20 19:00 80 18 131/67 (88) 90 05/01/20 18:45 85 18 128/72 (90) 89 05/01/20 18:34 101 22 164/85 (111) 91 05/01/20 18:15 97 22 173/91 (118) 96 05/01/20 18:00 97 19 173/91 (118) 99 05/01/20 18:00 22 181/95 Mechanical Ventilator 40 05/01/20 18:00 114 22 180/90 (120) 91 05/01/20 17:59 117 22 181/95 90 05/01/20 17:45 104 20 181/95 (123) 92 05/01/20 17:30 77 17 155/81 (105) 93 05/01/20 17:15 58 18 120/68 (85) 94 05/01/20 17:00 100 23 120/68 (85) 93 05/01/20 16:45 65 18 121/67 (85) 93 05/01/20 16:30 64 18 126/67 (86) 92 05/01/20 16:15 63 18 117/67 (84) 95 05/01/20 16:00 65 18 127/67 (87) 94 05/01/20 16:00 Mechanical Ventilator 05/01/20 16:00 97.4 62 18 121/67 (85) 93 05/01/20 16:00 Mechanical Ventilator 05/01/20 16:00 40 05/01/20 16:00 62 05/01/20 15:50 65 18 40 05/01/20 15:45 68 18 131/69 (89) 94 05/01/20 15:43 18 143/68 Mechanical Ventilator 40 05/01/20 15:30 68 18 143/68 (93) 93 05/01/20 15:15 75 17 127/69 (88) 94 05/01/20 15:00 75 18 138/70 (92) 95 05/01/20 15:00 71 18 138/70 (92) 94 05/01/20 15:00 18 127/69 Mechanical Ventilator 40 05/01/20 15:00 18 127/69 Mechanical Ventilator 40 05/01/20 14:45 64 18 126/67 (86) 94 05/01/20 14:30 63 18 145/73 (97) 95 05/01/20 14:15 60 18 123/70 (87) 95 05/01/20 14:00 65 16 143/82 (102) 94 05/01/20 14:00 18 123/70 Mechanical Ventilator 40 05/01/20 14:00 18 123/70 Mechanical Ventilator 40 05/01/20 14:00 61 18 111/63 (79) 95 05/01/20 13:45 55 18 111/63 (79) 97 05/01/20 13:30 56 18 115/64 (81) 96 05/01/20 13:15 57 18 118/67 (84) 96 05/01/20 13:10 63 18 116/67 97 05/01/20 13:00 56 18 116/67 (83) 96 05/01/20 13:00 18 118/67 Mechanical Ventilator 40 05/01/20 13:00 18 118/67 Mechanical Ventilator 40 05/01/20 13:00 57 18 118/67 (84) 96 Intake and Output 05/01/20 05/02/20 19:00 07:00 Intake Total 1207.5 ml 864.45 ml Output Total 360 ml 850 ml Balance 847.5 ml 14.45 ml Free Water 240 ml IV Total 487.5 ml 424.45 ml Tube Feeding 480 ml 440 ml Output Urine Total 360 ml 850 ml Current Medications Medications (Trade) Dose Ordered Sig/Dennis Route PRN Reason Start Time Stop Time Status Last Admin Dose Admin Acetaminophen (Tylenol) 650 mg Q4H PRN GT Mild Pain (Pain Scale 1-3) 05/02/20 08:45 06/01/20 08:44 05/02/20 09:04 Acetaminophen/ Hydrocodone Bitart ([place] 5/325) 1 tab Q4H GT 05/02/20 11:00 05/09/20 10:59 05/02/20 11:16 Chlorhexidine Gluconate (Marlen-Hex 2%) 1 applic DAILY@1999 TOPIC 03/30/20 20:00 06/28/20 19:59 05/01/20 20:25 Dextrose (Dextrose 50%) 25 ml Q30M PRN IV Hypoglycemia 03/29/20 20:45 06/27/20 20:44 Dextrose (Dextrose 50%) 50 ml Q30M PRN IV Hypoglycemia 03/29/20 20:45 06/27/20 20:44 Enoxaparin Sodium (Lovenox) 80 mg EVERY 12 HOURS SUBQ 04/06/20 21:00 07/05/20 20:59 05/02/20 08:32 Fentanyl Citrate 250 ml @ 1 mls/hr Q24H PRN IV SEDATION 04/30/20 07:30 05/03/20 23:59 05/02/20 05:29 Hydralazine HCl (Apresoline) 10 mg Q4H PRN IV For High Blood Pressure 03/30/20 12:15 06/28/20 12:14 05/02/20 09:47 Insulin Aspart (NovoLOG) Q6HR SUBQ 03/30/20 00:00 06/28/20 00:00 05/01/20 18:00 Lansoprazole (Prevacid) 30 mg DAILY GT 05/02/20 09:00 06/01/20 08:59 05/02/20 09:04 Lorazepam (Ativan) 1 mg THREE TIMES A DAY ORAL 05/01/20 13:00 05/08/20 12:59 05/02/20 12:33 Methylprednisolone Sodium Succinate (Solu-MEDROL) 20 mg Q12HR IVP 04/12/20 21:00 06/20/20 20:59 05/02/20 08:31 Midazolam HCl 200 ml @ 0 mls/hr Q24H IV 05/02/20 05:00 05/09/20 04:59 05/02/20 05:25 Quetiapine Fumarate (SEROqueL) 50 mg EVERY 8 HOURS ORAL 04/29/20 12:00 06/11/20 11:59 05/02/20 05:30 Trimethoprim/ Sulfamethoxazole (Bactrim-DS) 1 tab DAILY ORAL 04/30/20 09:00 05/07/20 08:59 05/02/20 08:31 Laboratory Tests 05/02/20 03:30: White Blood Count 6.9, Red Blood Count 3.17L, Hemoglobin 9.1L, Hematocrit 28.8L, Mean Corpuscular Volume 91, Mean Corpuscular Hemoglobin 28.6, Mean Corpuscular Hemoglobin Concent 31.4L, Red Cell Distribution Width 16.5H, Platelet Count 260, Mean Platelet Volume 6.5, Neutrophils (%) (Auto) , Lymphocytes (%) (Auto) , Monocytes (%) (Auto) , Eosinophils (%) (Auto) , Basophils (%) (Auto) , Differential Total Cells Counted 100, Neutrophils % (Manual) 80H, Lymphocytes % (Manual) 15L, Monocytes % (Manual) 4, Eosinophils % (Manual) 1, Basophils % (Manual) 0, Band Neutrophils 0, Platelet Estimate Adequate, Platelet Morphology Normal, Hypochromasia 1+, Anisocytosis 1+, Sodium Level 142, Potassium Level 3.9, Chloride Level 105, Carbon Dioxide Level 31, Anion Gap 6, Blood Urea Nitrogen 15, Creatinine 0.4L, Estimat Glomerular Filtration Rate > 60, Glucose Level 113H, Calcium Level 8.7 Height (Feet): 5 Height (Inches): 10.00 Weight (Pounds): 243 General Appearance: no apparent distress EENT: other - Trach to vent Cardiovascular: tachycardia Respiratory/Chest: decreased breath sounds Abdomen: distended, other - PEG Rubin Cooper MD May 02, 2020 13:00
--- NOTE | 2020-05-02 13:59 | NUR ---
NURSE NOTES: Pt complaining of heart burn. Paged Dr Quintero. Awaiting call back.
--- NOTE | 2020-05-02 14:36 | NUR ---
NURSE NOTES:WOUND CARE NOTES:Pt presented on admission with Covid 19. Pt currently in ICU and is deconditioned. Pt note to have rapidly evolving DTPIs. L upper extremity is edematous several Striated bands that are in close proximity noted to L forearm. These straited ridges have characteristics of Serous blisters but are indurated. Scattered petechaie also noted to L forearm within affected area. Partially opened Sacral DTPI. (L)6cm x (W)6.5cm Base of wound is purpuric and fluctuant with indurated and maroon borders. Small opening within base of Pressure Injury (L)0.8cm x (W)1.9cm.Base of wound is 80% slough,20% jhonathan.Non-Blanchable erythema periwound. Partially opened DTPI R Ischium(L)6cm x (W)5.8cm. Base of wound is 75% capped,and is purpuric and indurated;25% de-capped of which base is moist and is mixed maroon and purpuric in colour. (L)4cm x (W)2.2cm. Edges along de-capped portion of wound is rolled and purpuric. Surrounding non-blanchable erythema without induration. Unstageable Pressure Injury Scrotum(L)2.8cm x (W)2.3cm. Base of wound is 95% slough, 5% jhonathan. Edges are macerated. Surrounding testes erythematous . DTPI Plantar R Foot (L)4cm x (W)2.5cm. Wound has characteristics of Blood Filled Blister with marginal erythema along borders. DTPI Plantar R Hallux(L)0.8cm x (W)1.1cm. Wound has characteristics of Blood filled Blister with marginal erythema along edges. No additional skin breakdown periwound. DTPI Lateral L foot. (L)1cm x (W)1.5cm. Base of wound is maroon and indurated. Scattered petechaie noted to dorsal R foot. Toes are dusky both feet. Hyperkeratosis noted to palms of Both hands, both lower extremities and both feet -dorsal and plantar aspects. Bilat heels are boggy but blanchable. Tx.Plan: Cleanse Sacral wound with Saline. Apply TheraHoney to open wound. Apply Triad Paste periwound. Cover with Optifoam drsg. Change every Daily and prn. Cleanse R Ischial wound with Saline. Apply Therhaoney to open wound. Apply Triad Paste periwound. Cover with Optifoam drsg Daily and prn. Cleanse Scrotal wound with Saline. Apply TheraHoney. Apply Triad Paste periwound. Cocver with Optifoam drsg Daily and prn. Apply Betadine to DTPI 's Plantar R Foot and R Hallux. Cover each Site with Optifoam drsgs. Change every 3 days and prn. Apply Cavilon Skin Barrier to R and L Heels including Malleoli and Lateral L foot. Cover each affected areas with Optifoam drsgs. Change every 7 days and prn. Wash GT Site with soap and water. Leave open to Air. Reposition at least every 2hours or as tolerated. Off-load heels with pillows. Moisturize skin Daily. APM/DAVIS Mattress overlay. Addendum: 05/02/20 at 1858 by Gianna Sheth LVN ADDENDUM TO ABOVE WOUND NOTES:-Heel Protector boot to R foot. remove at least every 4 hours to assess skin Skin Integrity of calf.
--- NOTE | 2020-05-02 15:10 | NUR ---
RESPIRATORY NOTE: FiO2 decreased from 45% to 40%. PT tolerating change well. Kiera MATHEW aware. Will continue to monitor.
--- NOTE | 2020-05-02 15:54 | Cardiology Progress Note ---
Assessment/Plan Assessment/Plan Acute covid 19 pneumonia hypoxemia infiltrate bilat bacteremia hypernatremia / hyponatremia mild abn lfts tachy post intubation fever fungemia dvt upper ext now on 60 % fio2 , have been successfully weaned form 100 % s/p trach / peg weaning sedative now afebrile now hypoxemia unlikely cardiac related cxr still showing bilateral lower lobe infiltrates as of tele reviewed sinus / sinus fahad now is on full dose anticoag due to dvt ue cr is stable d/w rn norvasc for bp Subjective Subjective not communicative dionisio vent sedated Objective Last 24 Hour Vital Signs Date Time Temp Pulse Resp B/P (MAP) Pulse Ox O2 Delivery O2 Flow Rate FiO2 05/02/20 15:10 179/83 05/02/20 15:00 23 179/83 Mechanical Ventilator 45 05/02/20 15:00 99 18 146/73 (97) 98 05/02/20 14:00 77 16 145/72 (96) 98 05/02/20 14:00 17 141/60 Mechanical Ventilator 45 05/02/20 13:01 76 16 134/77 (96) 98 05/02/20 13:00 17 161/73 Mechanical Ventilator 45 05/02/20 12:33 86 20 114/54 98 05/02/20 12:30 97.5 82 18 161/73 (102) 97 05/02/20 12:00 50 05/02/20 12:00 78 05/02/20 12:00 20 136/64 Mechanical Ventilator 50 05/02/20 12:00 93 18 136/64 (88) 97 05/02/20 12:00 Mechanical Ventilator 05/02/20 11:30 81 18 112/65 (81) 97 05/02/20 11:19 99 20 96 Mechanical Ventilator 45 05/02/20 11:19 99 20 45 05/02/20 11:00 90 18 131/69 (89) 97 05/02/20 11:00 16 143/77 Mechanical Ventilator 50 05/02/20 10:30 92 11 146/70 (95) 95 05/02/20 10:15 97 15 131/76 (94) 96 05/02/20 10:00 19 151/73 Mechanical Ventilator 50 05/02/20 10:00 94 19 151/73 (99) 95 05/02/20 09:47 165/74 05/02/20 09:45 95 20 165/74 (104) 94 05/02/20 09:30 96 20 175/84 (114) 93 05/02/20 09:15 104 22 169/72 (104) 94 05/02/20 09:00 21 156/103 Mechanical Ventilator 50 05/02/20 09:00 107 22 156/103 (120) 92 05/02/20 08:45 124 21 139/85 (103) 94 05/02/20 08:31 124 28 171/83 99 05/02/20 08:30 123 25 171/83 (112) 95 05/02/20 08:15 118 24 161/82 (108) 93 05/02/20 08:00 Mechanical Ventilator 05/02/20 08:00 98.5 110 21 160/83 (108) 93 05/02/20 08:00 23 160/83 Mechanical Ventilator 50 05/02/20 08:00 113 05/02/20 08:00 50 05/02/20 07:45 117 22 166/86 (112) 90 05/02/20 07:30 21 222/79 Mechanical Ventilator 50 05/02/20 07:30 126 21 148/75 (99) 88 05/02/20 07:15 114 26 50 05/02/20 07:15 141 24 222/79 (126) 92 05/02/20 07:07 134 22 227/97 (140) 94 05/02/20 07:00 23 207/93 Mechanical Ventilator 50 05/02/20 07:00 125 26 207/93 (131) 93 05/02/20 06:30 118 23 173/77 (109) 85 05/02/20 06:00 105 19 205/86 (125) 93 05/02/20 05:32 181/111 05/02/20 05:30 81 16 163/88 (113) 93 05/02/20 05:29 19 181/111 40 05/02/20 05:25 19 182/111 Mechanical Ventilator 40 05/02/20 05:20 90 22 40 05/02/20 05:00 88 21 171/95 (120) 95 05/02/20 04:00 Mechanical Ventilator 05/02/20 04:00 90 19 142/85 (104) 94 05/02/20 04:00 69 05/02/20 04:00 19 142/85 Mechanical Ventilator 40 05/02/20 04:00 40 05/02/20 03:15 67 18 40 05/02/20 03:00 80 13 93 05/02/20 03:00 19 144/85 Mechanical Ventilator 40 05/02/20 02:30 90 19 168/86 (113) 93 05/02/20 02:00 84 16 171/94 (119) 96 05/02/20 02:00 16 171/94 Mechanical Ventilator 40 05/02/20 01:30 72 18 144/70 (94) 98 05/02/20 01:11 72 18 40 05/02/20 01:00 16 139/82 Mechanical Ventilator 40 05/02/20 01:00 74 16 139/82 (101) 97 05/02/20 00:30 71 18 146/71 (96) 96 05/02/20 00:00 90 05/02/20 00:00 40 05/02/20 00:00 Mechanical Ventilator 05/02/20 00:00 19 146/74 Mechanical Ventilator 40 05/02/20 00:00 90 19 146/74 (98) 94 05/01/20 23:04 77 20 40 05/01/20 23:00 81 18 156/63 (94) 95 05/01/20 23:00 18 156/63 Mechanical Ventilator 40 05/01/20 23:00 18 156/63 Mechanical Ventilator 40 05/01/20 22:30 82 18 137/63 (87) 95 05/01/20 22:00 20 172/72 Mechanical Ventilator 40 05/01/20 22:00 20 172/72 Mechanical Ventilator 40 05/01/20 22:00 92 20 172/72 (105) 95 05/01/20 21:30 86 18 162/73 (102) 93 05/01/20 21:04 74 18 40 05/01/20 21:00 73 18 128/74 (92) 94 05/01/20 21:00 18 128/74 Mechanical Ventilator 40 05/01/20 21:00 18 128/74 Mechanical Ventilator 40 05/01/20 20:30 73 17 134/83 (100) 95 05/01/20 20:00 74 18 151/82 (105) 93 05/01/20 20:00 18 151/82 Mechanical Ventilator 40 05/01/20 20:00 18 151/82 40 05/01/20 20:00 71 05/01/20 20:00 Mechanical Ventilator 05/01/20 20:00 40 05/01/20 19:30 78 19 134/72 (92) 90 05/01/20 19:15 92 21 172/89 (116) 93 05/01/20 19:03 72 23 40 05/01/20 19:00 80 18 131/67 (88) 90 05/01/20 19:00 18 131/67 Mechanical Ventilator 40 05/01/20 19:00 18 131/67 Mechanical Ventilator 40 05/01/20 19:00 80 18 131/67 (88) 90 05/01/20 18:45 85 18 128/72 (90) 89 05/01/20 18:34 101 22 164/85 (111) 91 05/01/20 18:15 97 22 173/91 (118) 96 05/01/20 18:00 97 19 173/91 (118) 99 05/01/20 18:00 22 181/95 Mechanical Ventilator 40 05/01/20 18:00 114 22 180/90 (120) 91 05/01/20 17:59 117 22 181/95 90 05/01/20 17:45 104 20 181/95 (123) 92 05/01/20 17:30 77 17 155/81 (105) 93 05/01/20 17:15 58 18 120/68 (85) 94 05/01/20 17:00 100 23 120/68 (85) 93 05/01/20 16:45 65 18 121/67 (85) 93 05/01/20 16:30 64 18 126/67 (86) 92 05/01/20 16:15 63 18 117/67 (84) 95 05/01/20 16:00 65 18 127/67 (87) 94 05/01/20 16:00 Mechanical Ventilator 05/01/20 16:00 97.4 62 18 121/67 (85) 93 05/01/20 16:00 Mechanical Ventilator 05/01/20 16:00 40 05/01/20 16:00 62 Intake and Output 05/01/20 05/02/20 19:00 07:00 Intake Total 1207.5 ml 901.95 ml Output Total 360 ml 850 ml Balance 847.5 ml 51.95 ml Free Water 240 ml IV Total 487.5 ml 461.95 ml Tube Feeding 480 ml 440 ml Output Urine Total 360 ml 850 ml Laboratory Tests Test 05/02/20 03:30 White Blood Count 6.9 K/UL (4.8-10.8) Red Blood Count 3.17 M/UL (4.70-6.10) L Hemoglobin 9.1 G/DL (14.2-18.0) L Hematocrit 28.8 % (42.0-52.0) L Mean Corpuscular Volume 91 FL (80-99) Mean Corpuscular Hemoglobin 28.6 PG (27.0-31.0) Mean Corpuscular Hemoglobin Concent 31.4 G/DL (32.0-36.0) L Red Cell Distribution Width 16.5 % (11.6-14.8) H Platelet Count 260 K/UL (150-450) Mean Platelet Volume 6.5 FL (6.5-10.1) Neutrophils (%) (Auto) % (45.0-75.0) Lymphocytes (%) (Auto) % (20.0-45.0) Monocytes (%) (Auto) % (1.0-10.0) Eosinophils (%) (Auto) % (0.0-3.0) Basophils (%) (Auto) % (0.0-2.0) Differential Total Cells Counted 100 Neutrophils % (Manual) 80 % (45-75) H Lymphocytes % (Manual) 15 % (20-45) L Monocytes % (Manual) 4 % (1-10) Eosinophils % (Manual) 1 % (0-3) Basophils % (Manual) 0 % (0-2) Band Neutrophils 0 % (0-8) Platelet Estimate Adequate Platelet Morphology Normal Hypochromasia 1+ Anisocytosis 1+ Sodium Level 142 MMOL/L (136-145) Potassium Level 3.9 MMOL/L (3.5-5.1) Chloride Level 105 MMOL/L (98-107) Carbon Dioxide Level 31 MMOL/L (21-32) Anion Gap 6 mmol/L (5-15) Blood Urea Nitrogen 15 mg/dL (7-18) Creatinine 0.4 MG/DL (0.55-1.30) L Estimat Glomerular Filtration Rate > 60 mL/min (>60) Glucose Level 113 MG/DL (74-106) H Calcium Level 8.7 MG/DL (8.5-10.1) Microbiology Date/Time Source Procedure Growth Status 04/29/20 19:00 Blood Blood Culture - Preliminary NO GROWTH AFTER 48 HOURS Resulted 04/29/20 18:50 Blood Blood Culture - Preliminary NO GROWTH AFTER 48 HOURS Resulted Objective pt seen persoanlly Manan Awan MD May 02, 2020 15:54
--- NOTE | 2020-05-02 16:00 | NUR ---
NURSE NOTES: Pt remains alert to drowsy and calm. Will continue to titrate down sedation. Will continue to monitor. BP remains elevated. Will continue to give PRN hydralazine as needed and notify Dr Awan when he rounds on pt.
--- NOTE | 2020-05-02 16:10 | NUR ---
NURSE NOTES: Dr Awan rounded on the pt. Notified him that pt BP remains uncontrolled and PRN hydralazine has been given often. Received order for norvasc 2.5mg BID PO. Order read back, verified, and placed.
[2020-05-02 17:32] LABS: APPEARANCE,URINE SLIGHTLY CLOUDY; BILIRUBIN, URINE NEGATIVE (NEGATIVE); GLUCOSE, URINE (UA) NEGATIVE (NEGATIVE); KETONES,URINE NEGATIVE (NEGATIVE); LEUKOCYTE ESTERASE ,URINE 1+ (NEGATIVE); NITRITE,URINE NEGATIVE (NEGATIVE); PH,URINE 9 (4.5-8.0); PROTEIN,URINE 2+ (NEGATIVE); UROBILINOGEN,URINE 1 MG/DL (0.0-1.0)
[2020-05-02 17:33] LABS: COLOR,URINE YELLOW
--- NOTE | 2020-05-02 19:45 | NUR ---
NURSE HAND-OFF REPORT: Latest Vital Signs: Temperature 97.1 , Pulse 108 , B/P 151 /71 , Respiratory Rate 24 , O2 SAT 94 , Mechanical Ventilator, O2 Flow Rate . Vital Sign Comment: BP remains elevated. Dr Awan aware. EKG Rhythm: Sinus Rhythm Rhythm change?: N Notified?: N Response: Message left await call Latest Hassan Fall Score: 50 Fall Risk: High Risk Safety Measures: Call light Within Reach, Bed Alarm Zone 3, Side Rails Side Rails x3, Bed position Low and Locked. Fall Precautions: Yellow Socks Yellow Gown Door Sign Patient Fall Education Report given to PRIYANKA kern.
--- NOTE | 2020-05-02 19:59 | NUR ---
NURSE NOTES: Received pt from Kiera MATHEW. Pt alert to name, place, and purpose. Pt follows commands and answers questions by nodding/shaking head. Pt trach to ventilator. Pt Pt SpO2 96%. FIO2 at 40%. Will continue to monitor. Pt has gastrostomy tube. Site clean and dry and open to air. No pain or skin breakdown at this time. Pt skin dry. Generalized edema noted. Left arm swollen and weak. Right arm strength 3/5. Legs weak. Pt remains on sedation. Will follow up. Bed in low position with bed alarm on and call light in reach.
[2020-05-02] MEDS: Dyna-Hex 2% Top Sol 2oz TOPIC SCH (20:00)
--- NOTE | 2020-05-02 21:33 | NUR ---
NURSE NOTES: Weaning sedation as per recs from Pulmo. Patient suctioned and oral care performed, patient awake and alert, follows simple commands. Patient had soft/liquid brown diarrhea, patient cleaned with CHG soap and made comfortable. New dry linen applied.
[2020-05-03] VITALS (57 sets, daily range): BP systolic 101–188; BP diastolic 57–96
--- NOTE | 2020-05-03 | NUR ---
NURSE NOTES: Patient very agitated and trying to reach and pull trach. Had to increased sedation for patient to relax. HR 130s RR 30s. Increased Fio2 to 60% temporally
--- NOTE | 2020-05-03 02:00 | NUR ---
NURSE NOTES: Patient sleeping at this time, vitals remains stable, afebrile, repositioned NAD.
[2020-05-03] MEDS: HYDROcodone/Acetamin 5/325 tab GT SCH ×7 (03:17→23:29)
--- NOTE | 2020-05-03 04:03 | NUR ---
NURSE NOTES: Sponge bath given, oral care performed, suctioned and repositioned, wound care performed. Patient can become agiated at time. Bilateral soft wrist placed as patient does attempt to pull on trach and PEG
[2020-05-03] MEDS: NovoLOG Insulin Flexpen SUBQ SCH ×4 (06:00→23:32)
--- NOTE | 2020-05-03 06:00 | NUR ---
NURSE NOTES: Patient repositioned and suctioned, oral care performed. NAD at this time.
--- NOTE | 2020-05-03 07:10 | NUR ---
NURSE HAND-OFF REPORT: SBAR given to Caleb MATHEW
--- NOTE | 2020-05-03 07:12 | NUR ---
RESPIRATORY NOTE: PT received on AC/VC: 18, 750, 50%, +5. Alarms are on and audible. Vent circuit is secure and out of the way. Airway is secure and patent. No s/s of acute respiratory distress noted at this time. Will continue to closely monitor.
--- NOTE | 2020-05-03 07:13 | NUR ---
RESPIRATORY NOTE: FiO2 titrated from 50% to 45%. PT tolerating well. BABAK MATHEW aware.
--- NOTE | 2020-05-03 07:15 | NUR ---
NURSE NOTES: Received report from PRIYANKA Fajardo. Patient is sedated. Shiley 8 with vent setting ac 18, vt 750, fio2 40% and peep 5. GT intact and running with glucerna 1.5 @ 40ml/hr. Brownlee intact and draining with jeff color urine. Rectal tube intact and brown liquid stool in tube. Right upper arm PICC intact and running with fentanyl 50mcg/hr to RASS -2. kept dry, clean and comfortable. Will continue plan of care.
[2020-05-03] MEDS: Solu-MEDROL 40mg Inj IVP SCH ×2 (08:54→21:46)
[2020-05-03] MEDS: LORazepam 1mg tab ORAL SCH ×3 (08:55→18:09)
[2020-05-03] MEDS: Bactrim-DS 1 tab ORAL SCH (08:55)
[2020-05-03] MEDS: Enoxaparin 80mg Inj SUBQ SCH ×2 (08:56→21:46)
--- NOTE | 2020-05-03 09:39 | NUR ---
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 * Inadequate oral intake R/T clinical and respiratory status as evidenced by COVID-19 ++, on continuous BIPAP, prolonged meal refusals, pt is now on TPN, pt orally intubated (03/28), s/p trach placement (04/26), and s/p PEG placement (04/27), now on GT feeds. * Decreased sodium and fat needs r/t HTN and obesity as evidenced by pt w/ cardiac history, elev BP (159/98-> now improved, on BP meds and diuretics), BMI >30, obese per guidelines. (INACTIVE) CURRENT TF:Glucerna 1.5 goal of 50 + Prosource BID ENTERAL NUTRITION RECOMMENDATIONS: Glucerna 1.5 @ 50ml/hr x 24 hrs + Prosource 1pkt BID to provide 1200ml, 1800kcal, 99g +22g prot (121g total prot), 926ml free water * Maintain current TF order * Con't Prosource 1pkt BID (additional 22g prot) to better meet est prot needs. ADDITIONAL RECOMMENDATIONS: 1) Maintain calibrated bedscale wts 2) Monitor BGs closely w/ Solumedrol (POC glu wnl at this time) 3) Monitor lytes, replete as needed 4) Monitor TF tolerance: PEG placed 04/28, cont to increase TF to goal as tolerated 5) Wound healing: Add Michael BID (mix w/ 2-4oz of water) TF @ goal provides 100% RDI Add Vit C 500mg QD, ZnSO4 220mg QD x 10days
--- NOTE | 2020-05-03 09:42 | General Progress Note ---
Subjective ROS Limited/Unobtainable: No Allergies: Coded Allergies: No Known Allergies (Unverified , 02/05/20) Objective Last 24 Hour Vital Signs Date Time Temp Pulse Resp B/P (MAP) Pulse Ox O2 Delivery O2 Flow Rate FiO2 05/03/20 09:30 63 18 107/61 (76) 97 05/03/20 09:00 65 18 109/60 (76) 96 05/03/20 08:55 68 18 122/63 97 05/03/20 08:53 69 122/63 05/03/20 08:30 69 18 122/63 (82) 96 05/03/20 08:00 Mechanical Ventilator 05/03/20 08:00 98.5 69 18 107/57 (74) 99 05/03/20 08:00 50 05/03/20 07:30 67 18 116/62 (80) 99 05/03/20 07:00 20 108/66 Mechanical Ventilator 50 05/03/20 07:00 74 18 108/66 (80) 98 05/03/20 06:30 74 18 122/71 (88) 99 05/03/20 06:00 30 122/71 Mechanical Ventilator 50 05/03/20 06:00 93 21 148/84 (105) 97 05/03/20 05:30 98.8 110 29 161/96 (117) 97 05/03/20 05:00 95 20 184/83 (116) 96 05/03/20 05:00 25 161/96 Mechanical Ventilator 50 05/03/20 04:30 105 23 149/79 (102) 96 05/03/20 04:00 50 05/03/20 04:00 31 143/75 Mechanical Ventilator 50 05/03/20 04:00 119 05/03/20 04:00 98.7 113 17 143/75 (97) 97 05/03/20 04:00 Mechanical Ventilator 05/03/20 03:30 99 20 158/84 (108) 99 05/03/20 03:19 98 18 50 05/03/20 03:00 105 20 188/78 (114) 98 05/03/20 03:00 30 159/75 Mechanical Ventilator 50 05/03/20 02:30 108 18 153/69 (97) 98 05/03/20 02:00 119 26 184/84 (117) 97 05/03/20 02:00 20 184/84 Mechanical Ventilator 40 05/03/20 02:00 20 184/64 Mechanical Ventilator 50 05/03/20 01:30 84 18 114/70 (85) 98 05/03/20 01:00 96 18 101/62 (75) 97 05/03/20 01:00 18 101/66 Mechanical Ventilator 50 05/03/20 00:30 144 28 145/64 (91) 95 05/03/20 00:00 100.0 134 27 175/88 (117) 97 05/03/20 00:00 Mechanical Ventilator 05/03/20 00:00 26 149/68 Mechanical Ventilator 40 05/03/20 00:00 132 05/03/20 00:00 60 05/02/20 23:30 130 28 178/85 (116) 98 05/02/20 23:18 60 05/02/20 23:09 125 26 50 05/02/20 23:00 114 21 182/67 (105) 97 05/02/20 23:00 26 165/76 Mechanical Ventilator 40 05/02/20 22:30 122 15 176/85 (115) 97 05/02/20 22:00 99.0 109 17 173/88 (116) 97 05/02/20 22:00 18 186/101 Mechanical Ventilator 40 05/02/20 21:30 93 22 169/86 (113) 98 05/02/20 21:07 175/101 05/02/20 21:00 102 25 157/79 (105) 87 05/02/20 21:00 25 163/75 Mechanical Ventilator 40 05/02/20 20:30 102 17 158/76 (103) 95 05/02/20 20:00 30 171/97 Mechanical Ventilator 40 05/02/20 20:00 Mechanical Ventilator 05/02/20 20:00 103 05/02/20 20:00 40 05/02/20 20:00 99.2 114 20 190/87 (121) 100 05/02/20 19:30 116 21 176/86 (116) 92 05/02/20 19:09 108 24 40 05/02/20 19:00 107 23 151/71 (97) 94 05/02/20 19:00 23 151/71 Mechanical Ventilator 40 05/02/20 18:45 110 24 170/89 (116) 94 05/02/20 18:30 99 19 155/83 (107) 95 05/02/20 18:22 92 169/97 05/02/20 18:22 87 23 169/97 96 05/02/20 18:22 23 169/87 Mechanical Ventilator 40 05/02/20 18:21 23 169/97 Mechanical Ventilator 40 05/02/20 18:15 99 19 169/97 (121) 96 05/02/20 18:00 92 19 169/97 (121) 98 05/02/20 18:00 20 169/97 Mechanical Ventilator 40 05/02/20 18:00 83 17 138/84 (102) 96 05/02/20 17:45 94 16 142/78 (99) 95 05/02/20 17:30 94 19 158/69 (98) 93 05/02/20 17:15 97 19 129/56 (80) 95 05/02/20 17:00 84 20 147/59 (88) 96 05/02/20 17:00 111 22 147/59 (88) 98 05/02/20 17:00 20 147/59 Mechanical Ventilator 40 05/02/20 16:45 94 18 118/49 (72) 95 05/02/20 16:30 91 22 115/61 (79) 96 05/02/20 16:15 90 20 154/81 (105) 95 05/02/20 16:00 90 19 130/59 (82) 95 05/02/20 16:00 40 05/02/20 16:00 100 05/02/20 16:00 19 130/59 Mechanical Ventilator 40 05/02/20 16:00 97.1 99 18 115/61 (79) 96 05/02/20 16:00 Mechanical Ventilator 05/02/20 15:45 97 21 142/76 (98) 97 05/02/20 15:30 88 18 153/61 (91) 98 05/02/20 15:15 76 17 146/73 (97) 97 05/02/20 15:10 179/83 05/02/20 15:10 99 20 40 05/02/20 15:00 23 179/83 Mechanical Ventilator 45 05/02/20 15:00 99 18 179/83 (115) 96 05/02/20 15:00 99 18 146/73 (97) 98 05/02/20 14:45 85 19 167/95 (119) 97 05/02/20 14:30 79 20 153/79 (103) 98 05/02/20 14:15 79 15 145/72 (96) 97 05/02/20 14:00 77 16 145/72 (96) 98 05/02/20 14:00 90 19 141/60 (87) 97 05/02/20 14:00 17 141/60 Mechanical Ventilator 45 05/02/20 13:45 97 18 168/82 (110) 97 05/02/20 13:30 96 18 170/63 (98) 97 05/02/20 13:01 76 16 134/77 (96) 98 05/02/20 13:00 17 161/73 Mechanical Ventilator 45 05/02/20 12:33 86 20 114/54 98 05/02/20 12:30 97.5 82 18 161/73 (102) 97 05/02/20 12:00 50 05/02/20 12:00 78 05/02/20 12:00 20 136/64 Mechanical Ventilator 50 05/02/20 12:00 93 18 136/64 (88) 97 05/02/20 12:00 Mechanical Ventilator 05/02/20 11:30 81 18 112/65 (81) 97 05/02/20 11:19 99 20 96 Mechanical Ventilator 45 05/02/20 11:19 99 20 45 05/02/20 11:00 90 18 131/69 (89) 97 05/02/20 11:00 16 143/77 Mechanical Ventilator 50 05/02/20 10:30 92 11 146/70 (95) 95 05/02/20 10:15 97 15 131/76 (94) 96 05/02/20 10:00 19 151/73 Mechanical Ventilator 50 05/02/20 10:00 94 19 151/73 (99) 95 05/02/20 09:47 165/74 05/02/20 09:45 95 20 165/74 (104) 94 Intake and Output 05/02/20 05/03/20 19:00 07:00 Intake Total 934.5 ml 705 ml Output Total 1100 ml 1005 ml Balance -165.5 ml -300 ml Free Water 60 ml IV Total 454.5 ml 165 ml Tube Feeding 480 ml 480 ml Output Urine Total 1100 ml 1005 ml # Bowel Movements 1 Laboratory Tests 05/02/20 15:25: Urine Color Yellow, Urine Appearance Slightly cloudy, Urine pH 9, Urine Specific [place] 1.015, Urine Protein 2+H, Urine Glucose (UA) Negative, Urine Ketones Negative, Urine Blood 4+H, Urine Nitrite Negative, Urine Bilirubin Negative, Urine Urobilinogen 1H, Urine Leukocyte Esterase 1+H, Urine RBC 5-10H, Urine WBC 2-4, Urine Squamous Epithelial Cells None, Urine Bacteria Few, Urine Yeast ModerateH Height (Feet): 5 Height (Inches): 10.00 Weight (Pounds): 243 General Appearance: no apparent distress EENT: normal ENT inspection Neck: supple Cardiovascular: normal rate Respiratory/Chest: decreased breath sounds Abdomen: hypoactive bowel sounds Extremities: non-tender Assessment/Plan Status: not improved, unchanged Assessment/Plan: hep c + but neg RNA GTF reglan 10 mg tolerating TF repeat labs fu LFTS>>>improving added pepcid iv will fu Da Quintero MD May 03, 2020 09:42
--- NOTE | 2020-05-03 10:14 | NUR ---
NURSE NOTES: Seen by Dr. Mata and assessed patient. Updated patient's condition. Recommended increase PO sedation. He said "monitor for another 1 more day." Will continue plan of care.
--- NOTE | 2020-05-03 10:16 | Pulmonology Progress Note ---
Subjective ROS Limited/Unobtainable: No Interval Events: S/p tracheostomy 04/25/20 Constitutional: Reports: other - s/p trach, no pressors, no + vent ; Denies: fever HEENT: Repors: no symptoms Respiratory: Reports: dry cough, shortness of breath Cardiovascular: Reports: no symptoms Gastrointestinal/Abdominal: Denies: nausea, vomiting, diarrhea Psychiatric: Reports: other - NA Skin: Denies: rash Musculoskeletal: Reports: other - NA Allergies: Coded Allergies: No Known Allergies (Unverified , 02/05/20) Objective Last 24 Hour Vital Signs Date Time Temp Pulse Resp B/P (MAP) Pulse Ox O2 Delivery O2 Flow Rate FiO2 05/03/20 09:30 63 18 107/61 (76) 97 05/03/20 09:00 65 18 109/60 (76) 96 05/03/20 08:55 68 18 122/63 97 05/03/20 08:53 69 122/63 05/03/20 08:30 69 18 122/63 (82) 96 05/03/20 08:00 Mechanical Ventilator 05/03/20 08:00 98.5 69 18 107/57 (74) 99 05/03/20 08:00 50 05/03/20 07:30 67 18 116/62 (80) 99 05/03/20 07:00 20 108/66 Mechanical Ventilator 50 05/03/20 07:00 74 18 108/66 (80) 98 05/03/20 06:30 74 18 122/71 (88) 99 05/03/20 06:00 30 122/71 Mechanical Ventilator 50 05/03/20 06:00 93 21 148/84 (105) 97 05/03/20 05:30 98.8 110 29 161/96 (117) 97 05/03/20 05:00 95 20 184/83 (116) 96 05/03/20 05:00 25 161/96 Mechanical Ventilator 50 05/03/20 04:30 105 23 149/79 (102) 96 05/03/20 04:00 50 05/03/20 04:00 31 143/75 Mechanical Ventilator 50 05/03/20 04:00 119 05/03/20 04:00 98.7 113 17 143/75 (97) 97 05/03/20 04:00 Mechanical Ventilator 05/03/20 03:30 99 20 158/84 (108) 99 05/03/20 03:19 98 18 50 05/03/20 03:00 105 20 188/78 (114) 98 05/03/20 03:00 30 159/75 Mechanical Ventilator 50 05/03/20 02:30 108 18 153/69 (97) 98 05/03/20 02:00 119 26 184/84 (117) 97 05/03/20 02:00 20 184/84 Mechanical Ventilator 40 05/03/20 02:00 20 184/64 Mechanical Ventilator 50 05/03/20 01:30 84 18 114/70 (85) 98 05/03/20 01:00 96 18 101/62 (75) 97 05/03/20 01:00 18 101/66 Mechanical Ventilator 50 05/03/20 00:30 144 28 145/64 (91) 95 05/03/20 00:00 100.0 134 27 175/88 (117) 97 05/03/20 00:00 Mechanical Ventilator 05/03/20 00:00 26 149/68 Mechanical Ventilator 40 05/03/20 00:00 132 05/03/20 00:00 60 05/02/20 23:30 130 28 178/85 (116) 98 05/02/20 23:18 60 05/02/20 23:09 125 26 50 05/02/20 23:00 114 21 182/67 (105) 97 05/02/20 23:00 26 165/76 Mechanical Ventilator 40 05/02/20 22:30 122 15 176/85 (115) 97 05/02/20 22:00 99.0 109 17 173/88 (116) 97 05/02/20 22:00 18 186/101 Mechanical Ventilator 40 05/02/20 21:30 93 22 169/86 (113) 98 05/02/20 21:07 175/101 05/02/20 21:00 102 25 157/79 (105) 87 05/02/20 21:00 25 163/75 Mechanical Ventilator 40 05/02/20 20:30 102 17 158/76 (103) 95 05/02/20 20:00 30 171/97 Mechanical Ventilator 40 05/02/20 20:00 Mechanical Ventilator 05/02/20 20:00 103 05/02/20 20:00 40 05/02/20 20:00 99.2 114 20 190/87 (121) 100 3/2/21 19:30 116 21 176/86 (116) 92 05/02/20 19:09 108 24 40 05/02/20 19:00 107 23 151/71 (97) 94 05/02/20 19:00 23 151/71 Mechanical Ventilator 40 05/02/20 18:45 110 24 170/89 (116) 94 05/02/20 18:30 99 19 155/83 (107) 95 05/02/20 18:22 92 169/97 05/02/20 18:22 87 23 169/97 96 05/02/20 18:22 23 169/87 Mechanical Ventilator 40 05/02/20 18:21 23 169/97 Mechanical Ventilator 40 05/02/20 18:15 99 19 169/97 (121) 96 05/02/20 18:00 92 19 169/97 (121) 98 05/02/20 18:00 20 169/97 Mechanical Ventilator 40 05/02/20 18:00 83 17 138/84 (102) 96 05/02/20 17:45 94 16 142/78 (99) 95 05/02/20 17:30 94 19 158/69 (98) 93 05/02/20 17:15 97 19 129/56 (80) 95 05/02/20 17:00 84 20 147/59 (88) 96 05/02/20 17:00 111 22 147/59 (88) 98 05/02/20 17:00 20 147/59 Mechanical Ventilator 40 05/02/20 16:45 94 18 118/49 (72) 95 05/02/20 16:30 91 22 115/61 (79) 96 05/02/20 16:15 90 20 154/81 (105) 95 05/02/20 16:00 90 19 130/59 (82) 95 05/02/20 16:00 40 05/02/20 16:00 100 05/02/20 16:00 19 130/59 Mechanical Ventilator 40 05/02/20 16:00 97.1 99 18 115/61 (79) 96 05/02/20 16:00 Mechanical Ventilator 05/02/20 15:45 97 21 142/76 (98) 97 05/02/20 15:30 88 18 153/61 (91) 98 05/02/20 15:15 76 17 146/73 (97) 97 05/02/20 15:10 179/83 05/02/20 15:10 99 20 40 05/02/20 15:00 23 179/83 Mechanical Ventilator 45 05/02/20 15:00 99 18 179/83 (115) 96 05/02/20 15:00 99 18 146/73 (97) 98 05/02/20 14:45 85 19 167/95 (119) 97 05/02/20 14:30 79 20 153/79 (103) 98 05/02/20 14:15 79 15 145/72 (96) 97 05/02/20 14:00 77 16 145/72 (96) 98 05/02/20 14:00 90 19 141/60 (87) 97 05/02/20 14:00 17 141/60 Mechanical Ventilator 45 05/02/20 13:45 97 18 168/82 (110) 97 05/02/20 13:30 96 18 170/63 (98) 97 05/02/20 13:01 76 16 134/77 (96) 98 05/02/20 13:00 17 161/73 Mechanical Ventilator 45 05/02/20 12:33 86 20 114/54 98 05/02/20 12:30 97.5 82 18 161/73 (102) 97 05/02/20 12:00 50 05/02/20 12:00 78 05/02/20 12:00 20 136/64 Mechanical Ventilator 50 05/02/20 12:00 93 18 136/64 (88) 97 05/02/20 12:00 Mechanical Ventilator 05/02/20 11:30 81 18 112/65 (81) 97 05/02/20 11:19 99 20 96 Mechanical Ventilator 45 05/02/20 11:19 99 20 45 05/02/20 11:00 90 18 131/69 (89) 97 05/02/20 11:00 16 143/77 Mechanical Ventilator 50 05/02/20 10:30 92 11 146/70 (95) 95 Intake and Output 05/02/20 05/03/20 19:00 07:00 Intake Total 934.5 ml 705 ml Output Total 1100 ml 1005 ml Balance -165.5 ml -300 ml Free Water 60 ml IV Total 454.5 ml 165 ml Tube Feeding 480 ml 480 ml Output Urine Total 1100 ml 1005 ml # Bowel Movements 1 General Appearance: WD/WN, no acute distress HEENT: normocephalic, atraumatic, status post trach Respiratory: chest wall non-tender Cardiovascular: normal rate, regular rhythm Abdomen: normal bowel sounds, soft, non tender, other - obese Laboratory Tests 05/02/20 15:25: Urine Color Yellow, Urine Appearance Slightly cloudy, Urine pH 9, Urine Specific Morrison 1.015, Urine Protein 2+H, Urine Glucose (UA) Negative, Urine Ketones Negative, Urine Blood 4+H, Urine Nitrite Negative, Urine Bilirubin Negative, Urine Urobilinogen 1H, Urine Leukocyte Esterase 1+H, Urine RBC 5-10H, Urine WBC 2-4, Urine Squamous Epithelial Cells None, Urine Bacteria Few, Urine Yeast ModerateH Current Medications Medications (Trade) Dose Ordered Sig/Dennis Route PRN Reason Start Time Stop Time Status Last Admin Dose Admin Acetaminophen (Tylenol) 650 mg Q4H PRN GT Mild Pain (Pain Scale 1-3) 05/02/20 08:45 06/01/20 08:44 05/02/20 09:04 Acetaminophen/ Hydrocodone Bitart (Radisson 5/325) 1 tab Q4H GT 05/02/20 11:00 05/09/20 10:59 05/03/20 06:26 Amlodipine Besylate (Norvasc) 2.5 mg BID GT 05/02/20 18:00 06/02/20 08:59 05/03/20 08:53 Chlorhexidine Gluconate (Marlen-Hex 2%) 1 applic DAILY@2000 TOPIC 03/30/20 20:00 06/28/20 19:59 05/02/20 20:00 Dextrose (Dextrose 50%) 25 ml Q30M PRN IV Hypoglycemia 03/29/20 20:45 06/27/20 20:44 Dextrose (Dextrose 50%) 50 ml Q30M PRN IV Hypoglycemia 03/29/20 20:45 06/27/20 20:44 Enoxaparin Sodium (Lovenox) 80 mg EVERY 12 HOURS SUBQ 04/06/20 21:00 07/05/20 20:59 05/03/20 08:56 Famotidine (Pepcid I.v.) 20 mg Q12HR PRN IVP HEART BURN 05/02/20 15:15 06/01/20 15:14 05/02/20 22:10 Fentanyl Citrate 250 ml @ 1 mls/hr Q24H PRN IV SEDATION 04/30/20 07:30 05/03/20 23:59 05/02/20 18:22 Hydralazine HCl (Apresoline) 10 mg Q4H PRN IV For High Blood Pressure 03/30/20 12:15 06/28/20 12:14 05/02/20 21:07 Insulin Aspart (NovoLOG) Q6HR SUBQ 03/30/20 00:00 06/28/20 00:00 05/01/20 18:00 Lansoprazole (Prevacid) 30 mg DAILY GT 05/02/20 09:00 06/01/20 08:59 05/03/20 08:54 Lorazepam (Ativan) 1 mg THREE TIMES A DAY ORAL 05/01/20 13:00 05/08/20 12:59 05/03/20 08:55 Methylprednisolone Sodium Succinate (Solu-MEDROL) 20 mg Q12HR IVP 04/12/20 21:00 06/20/20 20:59 05/03/20 08:54 Midazolam HCl 200 ml @ 0 mls/hr Q24H IV 05/02/20 05:00 05/09/20 04:59 05/02/20 18:21 Quetiapine Fumarate (SEROqueL) 50 mg EVERY 8 HOURS ORAL 04/29/20 12:00 06/11/20 11:59 05/03/20 06:26 Trimethoprim/ Sulfamethoxazole (Bactrim-DS) 1 tab DAILY ORAL 04/30/20 09:00 05/07/20 08:59 05/03/20 08:55 Assessment/Plan Assessment/Plan 1.COVID-19 pneumonia. - Completed specific therapies - On solumedrol 20 Iv q 12 - will add bactrim for PJP prophylaxis 2. DVT ppx - on lovenox 3. Hypertension - no longer on meds - Not requiring pressors 4. Leukocytosis; - ID following - Off abx - Candidemia documented 03/18/20 5. Elevated LFT - positive Hep C; treated in the past with IF 6. Respiratory failure -Intubated 03/28/20; s/p tracheostomy 04/25/20 -Family aware - Prognosis guarded - Vt 750; rate 18 -On sedation; will wean off; increased Seroquel to 50 TID; added Ativan 1mg TID 7. Discussed with cardiology -No evidence for cardiac dysfunction or PE 8. AMS -back on sedation S/p PICC line Noted left upper extremity swelling. Has DVT; on full dose Lovenox Will wean down FiO2 as tolerated CXR shows bilateral interstitial changes? fibrosis? S/p PEG Off IV fluids Increase tube feedings Dc planning to subacute On seroquel 50 mg PO TID; may need to increase On Ativan and Radisson Attempt to wean and dc Versed and Fentanyl John Mata MD May 03, 2020 10:16
[2020-05-03] MEDS ORDERED: NS 275ml ONE (10:31)
--- NOTE | 2020-05-03 12:02 | NUR ---
NURSE NOTES: Repositioned patient. Trach and oral care given.
--- NOTE | 2020-05-03 13:13 | Nephrology Progress Note ---
Assessment/Plan Problem List: (1) Dehydration (2) Electrolyte imbalance (3) COVID-19 virus infection (4) Pneumonia (5) DMII (diabetes mellitus, type 2) (6) Protein malnutrition Assessment Azotemia, hypernatremia Hypoalbuminemia Staff Otilia bacteremia COVID-19 isolation, pneumonia, bilateral infiltrate Hypertension Diabetes mellitus History of smoking Plan May 03: No CHEM panel drawn today. Patient clinically stable. Has trach to vent and PEG. Will check lab tomorrow. May 02: Labs reviewed. Status quo. Patient is trached and vented. Also has PEG. Is full code. Stable from renal standpoint of view. May 01: Labs reviewed. Status quo. Patient has trach connected to vent. Has PEG. He is full code. FiO2 50%. April 30: Status quo. Labs reviewed. Renal parameters stable. Medication list reviewed. April 29: Status quo. Received PEG yesterday. Has trach connected to vent. FiO2 40%. Labs reviewed. Medication list reviewed. Continue same April 28: Status quo. Labs reviewed. Renal parameters stable. Patient n.p.o. due for PEG insertion. IV changed to D5 normal saline. Continue per consultants. April 27: Status quo. Labs reviewed. Medication list reviewed. Stable from renal standpoint of view. Abnormal electrolytes addressed. April 26: Patient is now trached and connected to vent. FiO2 70%. Labs reviewed. Renal parameters stable. Medication list reviewed. Continue per consultants. April 25: Status quo. Full code. FiO2 55%. No labs drawn today. Continue to monitor electrolytes and renal parameters. Continue per consultants. April 24: Status quo. Full code. Intubated on ventilator. FiO2 65%. Labs reviewed. Renal parameters and electrolytes stable. April 23: Status unchanged. Full code. Intubated on ventilator. FiO2 75%. Labs reviewed. Renal parameters stable. Continue per consultants. April 22: Labs reviewed. Patient remains intubated on ventilator and full code. FiO2 90%. Day 77 hospitalization. Not much to add from renal standpoint of view April 21: No CHEM panel drawn today. FiO2 60%. Patient full code. Continue per consultants. April 20: Labs reviewed. Renal parameters stable. Patient remains full code. Intubated on ventilator with FiO2 currently at 70%. Continue per consultants. April 19: No labs drawn today. Remains full code on FiO2 of 100%. Continue per consultants. April 18: Status quo. Labs reviewed. Renal parameters stable. April 17: Status quo. Intubated on ventilator. Full code. Labs reviewed. Electrolytes and renal parameters stable. Continue per consultants. April 16: Girlfriend in the room. Patient awake. Intubated. Full code. Labs reviewed. Abnormal electrolyte addressed. Continue per consultants. April 15: Labs reviewed. Electrolytes and renal parameters stable. Patient full code. Continues to be intubated on ventilator. April 14: Status quo. Labs reviewed. Remains intubated on ventilator. Full code. Continue per consultants. April 13: Status quo. Labs reviewed. Renal parameters electrolytes stable. Continue per current treatment plan. April 12: On higher FiO2. Will resume Lasix daily. Continue to monitor electrolytes and renal parameters. Per consultants. April 11: FiO2 went up to 85%. Renal parameters and electrolytes reasonably well-maintained. Will monitor serum potassium. Will give IV Lasix. April 10: Status quo. Labs reviewed. Remains intubated on ventilator with FiO2 of 65%. Remains full code. Stable from renal standpoint to view. Repeat vitamin D level on April 08 pending April 09: Status quo. Labs reviewed. Stable from renal standpoint of view. Continue per consultants. April 08: Discussed with RN. Labs reviewed. Clinically improving. Requires lower PEEP. Continue per pulmonary. Continue to monitor renal parameters. April 07: Remains full code and on ventilator. Labs reviewed. Renal parameters and electrolytes stable. Continue per consultants. Blood pressure marginally improved. April 06: Full code. On ventilator. Blood pressure 80-90 systolic. IV Lasix discontinued. Free water through tube feeding ordered. Continue to monitor electrolytes and serum sodium. Down on fentanyl as possible. Discussed with PRIYANKA Brown. Clonidine patch discontinued. April 05: Status quo. Remains full code. Remains intubated. Labs reviewed. Renal parameters stable. Serum sodium 150 unchanged. Continue per consultants. April 04: Remains intubated and on ventilator. Remains full code. Labs reviewed. Serum sodium 150 unchanged. Renal parameters stable. Continue per ID and pulmonary. April 03: Intubated. On ventilator. Full code. Labs reviewed. Serum sodium 150 unchanged. Continue to monitor renal parameters. Continue per pulmonary and ID. April 02: Full code. On ventilator. Discussed with RN. Serum sodium slightly higher. Will cut down on IV Lasix. Continue per consultants. Continue to monitor renal parameters and electrolytes. April 01: Full code. Remains on ventilator. Labs reviewed. Stable from renal standpoint of view. Continue per consultants. March 31: Full code . Remains intubated on ventilator. Labs reviewed. Patient appears toxic. Discussed with RN. Maintenance IV discontinued. Medication list reviewed. Blood pressure medication stopped due to low blood pressure. Levemir insulin stopped. Continue monitor blood sugar and sliding scale insulin. March 30: Full code. On ventilator. Labs reviewed. Clonidine patch dose increased. Lasix increased. 3% saline 1 time ordered. Continue to monitor electrolytes and renal parameters. March 29: Remains full code. On mechanical ventilation. On tube feeding. Will DC TPN. Will start on maintenance IV fluid. Continue to monitor renal parameters. March 28: On BiPAP. Full code. On TPN. Labs reviewed. Discussed with pharmacy. Continue as is. Watch serum potassium. March 27: Remains on BiPAP. No chemistry panel done today. Full code. On TPN. Will check lab tomorrow. March 26: Remains on BiPAP. Remains on TPN. Labs reviewed. Electrolytes and chemistries within normal limits. Continue as is. March 25: Remains on TPN. Labs reviewed. Discussed with pharmacy. Change IV Protonix to p.o. Continue 3% saline infusion with Lasix. Patient full code. March 24: Continue to be on TPN. Labs are reviewed. Aim to collect electrolytes. Discussed with pharmacy. Continue current consultants. March 23: Continues to be on TPN. Labs reviewed. Electrolytes and chemistries all acceptable. Discussed with pharmacy. Continue current management. March 22: On TPN. Labs reviewed. Low sodium noted. 3% saline to be continued. Continue to monitor electrolytes. Discussed with pharmacy. March 21: On TPN. Labs reviewed. Continue 3% saline and Lasix for mild hyponatremia. Continue TPN as these. Discussed with pharmacy. March 20: Remains on TPN. Labs reviewed. Serum sodium higher on IV Lasix and 3% saline infusion. Continue TPN as is. Continue to monitor renal parameters and electrolytes. Discussed with Dr. Mata March 19: Remains on TPN. Labs reviewed. Serum sodium 128. Will give 3% sa line with IV Lasix. Continue to monitor electrolytes. No change in TPN composition. Discussed with pharmacy. March 18: Remains on TPN. Labs reviewed. Discussed with pharmacist. Will give 3 doses of IV Lasix 20 mg every 8 hours. Continue to monitor serum sodium electrolytes uric acid. White blood cells down. Continue per consultants. March 17: On TPN. Labs reviewed. Discussed with pharmacist. Sodium content increase. Continue to monitor CMP. Patient continues to have leukocytosis. March 16: On TPN. Labs reviewed. Discussed with pharmacist. Appropriate changes made. Continue to monitor electrolytes. March 15: Remains on TPN. Labs reviewed. Discussed with pharmacist. Continue per current management. March 14: Remains on TPN. Labs reviewed, stable. Vitamin D level low, replacement ordered. Continue to monitor electrolytes and renal parameters. March 13: Patient remains on TPN. Discussed with pharmacist. TPN's sodium content adjusted. Labs reviewed. Continue to monitor electrolytes. Blood pressure remains stable. Continue per consultants. March 12: Patient on TPN. Labs reviewed. CPK remains elevated. Abnormal electrolytes and high blood sugar discussed with pharmacist and TPN adjusted. Continue to monitor labs. Oral Protonix added. Ibuprofen discontinued. Can continue to monitor electrolytes and chemistries. Levemir for high blood sugar added. March 11: Patient on TPN. Labs as of 11:15 AM is still pending. Continue per current treatment plan. Will check labs and adjust TPN as needed. Continue per consultants. March 10: Patient on TPN. Labs reviewed. Electrolytes overall stable. CPK is elevated. Will monitor electrolyte, CPK level, lipid panel. Continue per consultants. Discussed with pharmacist. Discussed with RN. Nutritional evaluation noted. Previously: D5W 100 cc an hour Monitor electrolytes renal parameters TPN and Intralipid ordered Will follow Continue per consultants Dietary consult requested Subjective ROS Limited/Unobtainable: Yes Objective Objective Last 24 Hour Vital Signs Date Time Temp Pulse Resp B/P (MAP) Pulse Ox O2 Delivery O2 Flow Rate FiO2 05/03/20 13:07 88 18 156/68 93 05/03/20 09:30 63 18 107/61 (76) 97 05/03/20 09:25 65 18 120/62 97 05/03/20 09:00 65 18 109/60 (76) 96 05/03/20 08:55 68 18 122/63 97 05/03/20 08:53 69 122/63 05/03/20 08:30 69 18 122/63 (82) 96 05/03/20 08:00 Mechanical Ventilator 05/03/20 08:00 98.5 69 18 107/57 (74) 99 05/03/20 08:00 50 05/03/20 07:30 67 18 116/62 (80) 99 05/03/20 07:00 20 108/66 Mechanical Ventilator 50 05/03/20 07:00 74 18 108/66 (80) 98 05/03/20 06:30 74 18 122/71 (88) 99 05/03/20 06:00 30 122/71 Mechanical Ventilator 50 05/03/20 06:00 93 21 148/84 (105) 97 05/03/20 05:30 98.8 110 29 161/96 (117) 97 05/03/20 05:00 95 20 184/83 (116) 96 05/03/20 05:00 25 161/96 Mechanical Ventilator 50 05/03/20 04:30 105 23 149/79 (102) 96 05/03/20 04:00 50 05/03/20 04:00 31 143/75 Mechanical Ventilator 50 05/03/20 04:00 119 05/03/20 04:00 98.7 113 17 143/75 (97) 97 05/03/20 04:00 Mechanical Ventilator 05/03/20 03:30 99 20 158/84 (108) 99 05/03/20 03:19 98 18 50 05/03/20 03:00 105 20 188/78 (114) 98 05/03/20 03:00 30 159/75 Mechanical Ventilator 50 05/03/20 02:30 108 18 153/69 (97) 98 05/03/20 02:00 119 26 184/84 (117) 97 05/03/20 02:00 20 184/84 Mechanical Ventilator 40 05/03/20 02:00 20 184/64 Mechanical Ventilator 50 05/03/20 01:30 84 18 114/70 (85) 98 05/03/20 01:00 96 18 101/62 (75) 97 05/03/20 01:00 18 101/66 Mechanical Ventilator 50 05/03/20 00:30 144 28 145/64 (91) 95 05/03/20 00:00 100.0 134 27 175/88 (117) 97 05/03/20 00:00 Mechanical Ventilator 05/03/20 00:00 26 149/68 Mechanical Ventilator 40 05/03/20 00:00 132 05/03/20 00:00 60 05/02/20 23:30 130 28 178/85 (116) 98 05/02/20 23:18 60 05/02/20 23:09 125 26 50 05/02/20 23:00 114 21 182/67 (105) 97 05/02/20 23:00 26 165/76 Mechanical Ventilator 40 05/02/20 22:30 122 15 176/85 (115) 97 05/02/20 22:00 99.0 109 17 173/88 (116) 97 05/02/20 22:00 18 186/101 Mechanical Ventilator 40 05/02/20 21:30 93 22 169/86 (113) 98 05/02/20 21:07 175/101 05/02/20 21:00 102 25 157/79 (105) 87 05/02/20 21:00 25 163/75 Mechanical Ventilator 40 05/02/20 20:30 102 17 158/76 (103) 95 05/02/20 20:00 30 171/97 Mechanical Ventilator 40 05/02/20 20:00 Mechanical Ventilator 05/02/20 20:00 103 05/02/20 20:00 40 05/02/20 20:00 99.2 114 20 190/87 (121) 100 05/02/20 19:30 116 21 176/86 (116) 92 05/02/20 19:09 108 24 40 05/02/20 19:00 107 23 151/71 (97) 94 05/02/20 19:00 23 151/71 Mechanical Ventilator 40 05/02/20 18:45 110 24 170/89 (116) 94 05/02/20 18:30 99 19 155/83 (107) 95 05/02/20 18:22 92 169/97 05/02/20 18:22 87 23 169/97 96 05/02/20 18:22 23 169/87 Mechanical Ventilator 40 05/02/20 18:21 23 169/97 Mechanical Ventilator 40 05/02/20 18:15 99 19 169/97 (121) 96 05/02/20 18:00 92 19 169/97 (121) 98 05/02/20 18:00 20 169/97 Mechanical Ventilator 40 05/02/20 18:00 83 17 138/84 (102) 96 05/02/20 17:45 94 16 142/78 (99) 95 05/02/20 17:30 94 19 158/69 (98) 93 05/02/20 17:15 97 19 129/56 (80) 95 05/02/20 17:00 84 20 147/59 (88) 96 05/02/20 17:00 111 22 147/59 (88) 98 05/02/20 17:00 20 147/59 Mechanical Ventilator 40 05/02/20 16:45 94 18 118/49 (72) 95 05/02/20 16:30 91 22 115/61 (79) 96 05/02/20 16:15 90 20 154/81 (105) 95 05/02/20 16:00 90 19 130/59 (82) 95 05/02/20 16:00 40 05/02/20 16:00 100 05/02/20 16:00 19 130/59 Mechanical Ventilator 40 05/02/20 16:00 97.1 99 18 115/61 (79) 96 05/02/20 16:00 Mechanical Ventilator 05/02/20 15:45 97 21 142/76 (98) 97 05/02/20 15:30 88 18 153/61 (91) 98 05/02/20 15:15 76 17 146/73 (97) 97 05/02/20 15:10 179/83 05/02/20 15:10 99 20 40 05/02/20 15:00 23 179/83 Mechanical Ventilator 45 05/02/20 15:00 99 18 179/83 (115) 96 05/02/20 15:00 99 18 146/73 (97) 98 05/02/20 14:45 85 19 167/95 (119) 97 05/02/20 14:30 79 20 153/79 (103) 98 05/02/20 14:15 79 15 145/72 (96) 97 05/02/20 14:00 77 16 145/72 (96) 98 05/02/20 14:00 90 19 141/60 (87) 97 05/02/20 14:00 17 141/60 Mechanical Ventilator 45 05/02/20 13:45 97 18 168/82 (110) 97 05/02/20 13:30 96 18 170/63 (98) 97 Intake and Output 05/02/20 05/03/20 19:00 07:00 Intake Total 934.5 ml 705 ml Output Total 1100 ml 1005 ml Balance -165.5 ml -300 ml Free Water 60 ml IV Total 454.5 ml 165 ml Tube Feeding 480 ml 480 ml Output Urine Total 1100 ml 1005 ml # Bowel Movements 1 Laboratory Tests Test 05/02/20 15:25 Urine Color Yellow Urine Appearance Slightly cloudy Urine pH 9 (4.5-8.0) Urine Specific [place] 1.015 (1.005-1.035) Urine Protein 2+ (NEGATIVE) H Urine Glucose (UA) Negative (NEGATIVE) Urine Ketones Negative (NEGATIVE) Urine Blood 4+ (NEGATIVE) H Urine Nitrite Negative (NEGATIVE) Urine Bilirubin Negative (NEGATIVE) Urine Urobilinogen 1 MG/DL (0.0-1.0) H Urine Leukocyte Esterase 1+ (NEGATIVE) H Urine RBC 5-10 /HPF (0 - 0) H Urine WBC 2-4 /HPF (0 - 0) Urine Squamous Epithelial Cells None /LPF (NONE/OCC) Urine Bacteria Few /HPF (NONE) Urine Yeast Moderate /HPF (NONE) H Current Medications Medications (Trade) Dose Ordered Sig/Dennis Route PRN Reason Start Time Stop Time Status Last Admin Dose Admin Acetaminophen (Tylenol) 650 mg Q4H PRN GT Mild Pain (Pain Scale 1-3) 05/02/20 08:45 06/01/20 08:44 05/02/20 09:04 Acetaminophen/ Hydrocodone Bitart (Satartia 5/325) 1 tab Q4H GT 05/02/20 11:00 05/09/20 10:59 05/03/20 11:30 Amlodipine Besylate (Norvasc) 2.5 mg BID GT 05/02/20 18:00 06/02/20 08:59 05/03/20 08:53 Chlorhexidine Gluconate (Marlen-Hex 2%) 1 applic DAILY@1999 TOPIC 03/30/20 20:00 06/28/20 19:59 05/02/20 20:00 Dextrose (Dextrose 50%) 25 ml Q30M PRN IV Hypoglycemia 03/29/20 20:45 06/27/20 20:44 Dextrose (Dextrose 50%) 50 ml Q30M PRN IV Hypoglycemia 03/29/20 20:45 06/27/20 20:44 Enoxaparin Sodium (Lovenox) 80 mg EVERY 12 HOURS SUBQ 04/06/20 21:00 07/05/20 20:59 05/03/20 08:56 Famotidine (Pepcid I.v.) 20 mg Q12HR PRN IVP HEART BURN 05/02/20 15:15 06/01/20 15:14 05/02/20 22:10 Fentanyl Citrate 250 ml @ 1 mls/hr Q24H PRN IV SEDATION 04/30/20 07:30 05/03/20 23:59 05/02/20 18:22 Hydralazine HCl (Apresoline) 10 mg Q4H PRN IV For High Blood Pressure 03/30/20 12:15 06/28/20 12:14 05/02/20 21:07 Insulin Aspart (NovoLOG) Q6HR SUBQ 03/30/20 00:00 06/28/20 00:00 05/01/20 18:00 Lansoprazole (Prevacid) 30 mg DAILY GT 05/02/20 09:00 06/01/20 08:59 05/03/20 08:54 Lorazepam (Ativan) 1 mg THREE TIMES A DAY ORAL 05/01/20 13:00 05/08/20 12:59 05/03/20 13:07 Methylprednisolone Sodium Succinate (Solu-MEDROL) 20 mg Q12HR IVP 04/12/20 21:00 06/20/20 20:59 05/03/20 08:54 Midazolam HCl 200 ml @ 0 mls/hr Q24H IV 05/02/20 05:00 05/09/20 04:59 05/02/20 18:21 Quetiapine Fumarate (SEROqueL) 50 mg EVERY 8 HOURS ORAL 04/29/20 12:00 06/11/20 11:59 05/03/20 06:26 Trimethoprim/ Sulfamethoxazole (Bactrim-DS) 1 tab DAILY ORAL 04/30/20 09:00 05/07/20 08:59 05/03/20 08:55 Laboratory Tests 05/02/20 15:25: Urine Color Yellow, Urine Appearance Slightly cloudy, Urine pH 9, Urine Specific [place] 1.015, Urine Protein 2+H, Urine Glucose (UA) Negative, Urine Ketones Negative, Urine Blood 4+H, Urine Nitrite Negative, Urine Bilirubin Negative, Urine Urobilinogen 1H, Urine Leukocyte Esterase 1+H, Urine RBC 5-10H, Urine WBC 2-4, Urine Squamous Epithelial Cells None, Urine Bacteria Few, Urine Yeast ModerateH Height (Feet): 5 Height (Inches): 10.00 Weight (Pounds): 243 General Appearance: no apparent distress EENT: other - Trach to vent Cardiovascular: normal rate Respiratory/Chest: decreased breath sounds Abdomen: distended Rubin Cooper MD May 03, 2020 13:13
--- NOTE | 2020-05-03 13:36 | Surgery Progress Note ---
Surgery Progress Note Subjective Procedure Performed tracheostomy Symptoms: improved, tolerating diet, passing flatus Objective Last 24 Hour Vital Signs Date Time Temp Pulse Resp B/P (MAP) Pulse Ox O2 Delivery O2 Flow Rate FiO2 05/03/20 13:07 88 18 156/68 93 05/03/20 09:30 63 18 107/61 (76) 97 05/03/20 09:25 65 18 120/62 97 05/03/20 09:00 65 18 109/60 (76) 96 05/03/20 08:55 68 18 122/63 97 05/03/20 08:53 69 122/63 05/03/20 08:30 69 18 122/63 (82) 96 05/03/20 08:00 Mechanical Ventilator 05/03/20 08:00 98.5 69 18 107/57 (74) 99 05/03/20 08:00 50 05/03/20 07:30 67 18 116/62 (80) 99 05/03/20 07:00 20 108/66 Mechanical Ventilator 50 05/03/20 07:00 74 18 108/66 (80) 98 05/03/20 06:30 74 18 122/71 (88) 99 05/03/20 06:00 30 122/71 Mechanical Ventilator 50 05/03/20 06:00 93 21 148/84 (105) 97 05/03/20 05:30 98.8 110 29 161/96 (117) 97 05/03/20 05:00 95 20 184/83 (116) 96 05/03/20 05:00 25 161/96 Mechanical Ventilator 50 05/03/20 04:30 105 23 149/79 (102) 96 05/03/20 04:00 50 05/03/20 04:00 31 143/75 Mechanical Ventilator 50 05/03/20 04:00 119 05/03/20 04:00 98.7 113 17 143/75 (97) 97 05/03/20 04:00 Mechanical Ventilator 05/03/20 03:30 99 20 158/84 (108) 99 05/03/20 03:19 98 18 50 05/03/20 03:00 105 20 188/78 (114) 98 05/03/20 03:00 30 159/75 Mechanical Ventilator 50 05/03/20 02:30 108 18 153/69 (97) 98 05/03/20 02:00 119 26 184/84 (117) 97 05/03/20 02:00 20 184/84 Mechanical Ventilator 40 05/03/20 02:00 20 184/64 Mechanical Ventilator 50 05/03/20 01:30 84 18 114/70 (85) 98 05/03/20 01:00 96 18 101/62 (75) 97 05/03/20 01:00 18 101/66 Mechanical Ventilator 50 05/03/20 00:30 144 28 145/64 (91) 95 05/03/20 00:00 100.0 134 27 175/88 (117) 97 05/03/20 00:00 Mechanical Ventilator 05/03/20 00:00 26 149/68 Mechanical Ventilator 40 05/03/20 00:00 132 05/03/20 00:00 60 05/02/20 23:30 130 28 178/85 (116) 98 05/02/20 23:18 60 05/02/20 23:09 125 26 50 05/02/20 23:00 114 21 182/67 (105) 97 05/02/20 23:00 26 165/76 Mechanical Ventilator 40 05/02/20 22:30 122 15 176/85 (115) 97 05/02/20 22:00 99.0 109 17 173/88 (116) 97 05/02/20 22:00 18 186/101 Mechanical Ventilator 40 05/02/20 21:30 93 22 169/86 (113) 98 05/02/20 21:07 175/101 05/02/20 21:00 102 25 157/79 (105) 87 05/02/20 21:00 25 163/75 Mechanical Ventilator 40 05/02/20 20:30 102 17 158/76 (103) 95 05/02/20 20:00 30 171/97 Mechanical Ventilator 40 05/02/20 20:00 Mechanical Ventilator 05/02/20 20:00 103 05/02/20 20:00 40 05/02/20 20:00 99.2 114 20 190/87 (121) 100 05/02/20 19:30 116 21 176/86 (116) 92 05/02/20 19:09 108 24 40 05/02/20 19:00 107 23 151/71 (97) 94 05/02/20 19:00 23 151/71 Mechanical Ventilator 40 05/02/20 18:45 110 24 170/89 (116) 94 05/02/20 18:30 99 19 155/83 (107) 95 05/02/20 18:22 92 169/97 05/02/20 18:22 87 23 169/97 96 05/02/20 18:22 23 169/87 Mechanical Ventilator 40 05/02/20 18:21 23 169/97 Mechanical Ventilator 40 05/02/20 18:15 99 19 169/97 (121) 96 05/02/20 18:00 92 19 169/97 (121) 98 05/02/20 18:00 20 169/97 Mechanical Ventilator 40 05/02/20 18:00 83 17 138/84 (102) 96 05/02/20 17:45 94 16 142/78 (99) 95 05/02/20 17:30 94 19 158/69 (98) 93 05/02/20 17:15 97 19 129/56 (80) 95 05/02/20 17:00 84 20 147/59 (88) 96 05/02/20 17:00 111 22 147/59 (88) 98 05/02/20 17:00 20 147/59 Mechanical Ventilator 40 05/02/20 16:45 94 18 118/49 (72) 95 05/02/20 16:30 91 22 115/61 (79) 96 05/02/20 16:15 90 20 154/81 (105) 95 05/02/20 16:00 90 19 130/59 (82) 95 05/02/20 16:00 40 05/02/20 16:00 100 05/02/20 16:00 19 130/59 Mechanical Ventilator 40 05/02/20 16:00 97.1 99 18 115/61 (79) 96 05/02/20 16:00 Mechanical Ventilator 05/02/20 15:45 97 21 142/76 (98) 97 05/02/20 15:30 88 18 153/61 (91) 98 05/02/20 15:15 76 17 146/73 (97) 97 05/02/20 15:10 179/83 05/02/20 15:10 99 20 40 05/02/20 15:00 23 179/83 Mechanical Ventilator 45 05/02/20 15:00 99 18 179/83 (115) 96 05/02/20 15:00 99 18 146/73 (97) 98 05/02/20 14:45 85 19 167/95 (119) 97 05/02/20 14:30 79 20 153/79 (103) 98 05/02/20 14:15 79 15 145/72 (96) 97 05/02/20 14:00 77 16 145/72 (96) 98 05/02/20 14:00 90 19 141/60 (87) 97 05/02/20 14:00 17 141/60 Mechanical Ventilator 45 05/02/20 13:45 97 18 168/82 (110) 97 I&O Intake and Output 05/02/20 05/03/20 19:00 07:00 Intake Total 934.5 ml 705 ml Output Total 1100 ml 1005 ml Balance -165.5 ml -300 ml Free Water 60 ml IV Total 454.5 ml 165 ml Tube Feeding 480 ml 480 ml Output Urine Total 1100 ml 1005 ml # Bowel Movements 1 Dressing: other Wound: other Cardiovascular: RSR Respiratory: decreased breath sounds Abdomen: soft, non-tender, present bowel sounds, non-distended Extremities: no tenderness, no cyanosis Laboratory Tests Test 05/02/20 15:25 Urine Color Yellow Urine Appearance Slightly cloudy Urine pH 9 (4.5-8.0) Urine Specific [place] 1.015 (1.005-1.035) Urine Protein 2+ (NEGATIVE) H Urine Glucose (UA) Negative (NEGATIVE) Urine Ketones Negative (NEGATIVE) Urine Blood 4+ (NEGATIVE) H Urine Nitrite Negative (NEGATIVE) Urine Bilirubin Negative (NEGATIVE) Urine Urobilinogen 1 MG/DL (0.0-1.0) H Urine Leukocyte Esterase 1+ (NEGATIVE) H Urine RBC 5-10 /HPF (0 - 0) H Urine WBC 2-4 /HPF (0 - 0) Urine Squamous Epithelial Cells None /LPF (NONE/OCC) Urine Bacteria Few /HPF (NONE) Urine Yeast Moderate /HPF (NONE) H Plan Problems: (1) Pneumonia (2) Staphylococcus aureus bacteremia (3) COVID-19 virus infection (4) Chest pain (5) Hypertension (6) Dehydration (7) Electrolyte imbalance (8) DMII (diabetes mellitus, type 2) (9) Protein malnutrition (10) Respiratory insufficiency Assessment & Plan: 64-year-old male with respiratory insufficiency intubated in an intensive care unit. Patient has been unable to safely wean off ventilatory support. Surgery called to evaluate for tracheostomy. After careful evaluation patient is a candidate for tracheostomy. In the meantime will obtain consent. If consent obtained will proceed with scheduling. Thank you for your participation's care will follow recommendations improving trach okay agitated weaning sedation no n/v cont weaning transition to oral meds via g tube get off Booker Chang May 03, 2020 13:36
--- NOTE | 2020-05-03 14:30 | NUR ---
NURSE NOTES: Decreased fentanyl to 30mcg/hr to meet RASS -2. Will continue to monitor closely.
--- NOTE | 2020-05-03 14:35 | NUR ---
RESPIRATORY NOTE: FiO2 titrated from 45% to 40%. PT tolerating well. BABAK MATHEW aware.
--- NOTE | 2020-05-03 16:42 | NUR ---
NURSE NOTES: Bed bath given. Kept dry, clean and comfortable.
--- NOTE | 2020-05-03 17:06 | Infectious Diseases Prog Note ---
Assessment/Plan Assessment/Plan ASSESSMENT AND PLAN: 1. staph aureus bacteremia/mssa, ? source, ? endocarditis, sepsis, leukocytosis covid-19 +, hypoxia, sob, chest x-ray worse, ? PE, ? HCAP/aspiration pna leukocytosis noted - ? new infection, ? steroids cocci serology negative, legionella negative, beta 1,3 D-glucan wnl, Il-16 - 13.7 elevated LFT's - ? TPN, ? Bactrim - US without gallbladder disease, + steatosis - d/w GI - TPN more likely than bactrim as etiology e.coli uti - s/p treatment with rocephin, s/p treatment for presumptive pneumocystis pna + yeast in blood, fungemia, ? line infection, line changed worsening respiratory status, ? new aspiration pna/hcap, ? sepsis ? fungal/cynthia uti vs colonization - s/p tx - s/p zosyn and vancomycin - s/p micafungin -(post negative blood cultures - 04/02/20) - on solumedrol - picc line changed - bactrim for pneumocystis prophylaxis, s/p pneumocystis treatment - s/p tx for mssa bacteremia and ? endocarditis - monitor hypoxia, labs and chest x-ray - s/p trach - c.diff. negative - surveillance blood cultures negative, f/u on ua for low grade fevers 2. covid-19 isolation removed - covid-19 recovered 3. Hypertension history. Blood pressure treatment primary care team. 4. Elevated blood sugars. Blood sugar treatment per primary care team. 5. No known drug allergies. 6. Social history is positive for smoking. 7. Family history is noncontributory. 8. MAR was noted. 9. Case was discussed with RN. 10. Continue treatment per primary consultants. Subjective Constitutional: Reports: other - trach and vent ; Denies: fever HEENT: Reports: congestion Respiratory: Reports: shortness of breath Cardiovascular: Reports: other - no pressors ; Denies: chest pain Gastrointestinal/Abdominal: Denies: nausea, vomiting, diarrhea Genitourinary: Reports: other - + joseph Neurologic: Reports: weakness, other - responsive Psychiatric: Reports: other - Na Skin: Denies: rash Hematologic: Denies: bleeding Musculoskeletal: Reports: other - NA Allergies: Coded Allergies: No Known Allergies (Unverified , 02/05/20) Objective Last 24 Hour Vital Signs Date Time Temp Pulse Resp B/P (MAP) Pulse Ox O2 Delivery O2 Flow Rate FiO2 05/03/20 16:00 Mechanical Ventilator 05/03/20 16:00 73 05/03/20 16:00 40 05/03/20 15:30 20 128/63 Mechanical Ventilator 40 05/03/20 15:15 23 128/61 Mechanical Ventilator 40 05/03/20 15:00 22 142/62 Mechanical Ventilator 40 05/03/20 14:45 20 151/70 Mechanical Ventilator 40 05/03/20 14:35 67 18 40 05/03/20 14:30 19 142/64 Mechanical Ventilator 40 05/03/20 14:15 18 139/66 Mechanical Ventilator 40 05/03/20 14:00 20 137/71 Mechanical Ventilator 45 05/03/20 13:37 69 19 137/71 97 05/03/20 13:07 88 18 156/68 93 05/03/20 13:00 21 143/69 Mechanical Ventilator 45 05/03/20 12:00 23 151/66 Mechanical Ventilator 45 05/03/20 12:00 109 05/03/20 12:00 Mechanical Ventilator 05/03/20 12:00 45 05/03/20 11:00 18 138/60 Mechanical Ventilator 45 05/03/20 10:45 72 18 45 05/03/20 10:00 18 115/60 Mechanical Ventilator 45 05/03/20 09:30 63 18 107/61 (76) 97 05/03/20 09:25 65 18 120/62 97 05/03/20 09:00 65 18 109/60 (76) 96 05/03/20 09:00 18 107/61 Mechanical Ventilator 50 05/03/20 08:55 68 18 122/63 97 05/03/20 08:53 69 122/63 05/03/20 08:30 69 18 122/63 (82) 96 05/03/20 08:00 Mechanical Ventilator 05/03/20 08:00 98.5 69 18 107/57 (74) 99 05/03/20 08:00 67 05/03/20 08:00 18 122/63 Mechanical Ventilator 50 05/03/20 08:00 50 05/03/20 07:30 67 18 116/62 (80) 99 05/03/20 07:13 69 18 45 05/03/20 07:00 20 108/66 Mechanical Ventilator 50 05/03/20 07:00 74 18 108/66 (80) 98 05/03/20 06:30 74 18 122/71 (88) 99 05/03/20 06:00 30 122/71 Mechanical Ventilator 50 05/03/20 06:00 93 21 148/84 (105) 97 05/03/20 05:30 98.8 110 29 161/96 (117) 97 05/03/20 05:00 95 20 184/83 (116) 96 05/03/20 05:00 25 161/96 Mechanical Ventilator 50 05/03/20 04:30 105 23 149/79 (102) 96 05/03/20 04:00 50 05/03/20 04:00 31 143/75 Mechanical Ventilator 50 05/03/20 04:00 119 05/03/20 04:00 98.7 113 17 143/75 (97) 97 05/03/20 04:00 Mechanical Ventilator 05/03/20 03:30 99 20 158/84 (108) 99 05/03/20 03:19 98 18 50 05/03/20 03:00 105 20 188/78 (114) 98 05/03/20 03:00 30 159/75 Mechanical Ventilator 50 05/03/20 02:30 108 18 153/69 (97) 98 05/03/20 02:00 119 26 184/84 (117) 97 05/03/20 02:00 20 184/84 Mechanical Ventilator 40 05/03/20 02:00 20 184/64 Mechanical Ventilator 50 05/03/20 01:30 84 18 114/70 (85) 98 05/03/20 01:00 96 18 101/62 (75) 97 05/03/20 01:00 18 101/66 Mechanical Ventilator 50 05/03/20 00:30 144 28 145/64 (91) 95 05/03/20 00:00 100.0 134 27 175/88 (117) 97 05/03/20 00:00 Mechanical Ventilator 05/03/20 00:00 26 149/68 Mechanical Ventilator 40 05/03/20 00:00 132 05/03/20 00:00 60 05/02/20 23:30 130 28 178/85 (116) 98 05/02/20 23:18 60 05/02/20 23:09 125 26 50 05/02/20 23:00 114 21 182/67 (105) 97 05/02/20 23:00 26 165/76 Mechanical Ventilator 40 05/02/20 22:30 122 15 176/85 (115) 97 05/02/20 22:00 99.0 109 17 173/88 (116) 97 05/02/20 22:00 18 186/101 Mechanical Ventilator 40 05/02/20 21:30 93 22 169/86 (113) 98 05/02/20 21:07 175/101 05/02/20 21:00 102 25 157/79 (105) 87 05/02/20 21:00 25 163/75 Mechanical Ventilator 40 05/02/20 20:30 102 17 158/76 (103) 95 05/02/20 20:00 30 171/97 Mechanical Ventilator 40 05/02/20 20:00 Mechanical Ventilator 05/02/20 20:00 103 05/02/20 20:00 40 05/02/20 20:00 99.2 114 20 190/87 (121) 100 05/02/20 19:30 116 21 176/86 (116) 92 05/02/20 19:09 108 24 40 05/02/20 19:00 107 23 151/71 (97) 94 05/02/20 19:00 23 151/71 Mechanical Ventilator 40 05/02/20 18:45 110 24 170/89 (116) 94 05/02/20 18:30 99 19 155/83 (107) 95 05/02/20 18:22 92 169/97 05/02/20 18:22 87 23 169/97 96 05/02/20 18:22 23 169/87 Mechanical Ventilator 40 05/02/20 18:21 23 169/97 Mechanical Ventilator 40 05/02/20 18:15 99 19 169/97 (121) 96 05/02/20 18:00 92 19 169/97 (121) 98 05/02/20 18:00 20 169/97 Mechanical Ventilator 40 05/02/20 18:00 83 17 138/84 (102) 96 05/02/20 17:45 94 16 142/78 (99) 95 05/02/20 17:30 94 19 158/69 (98) 93 05/02/20 17:15 97 19 129/56 (80) 95 Height (Feet): 5 Height (Inches): 10.00 Weight (Pounds): 243 General Appearance: other - + trach and vent, no pressors HEENT: normocephalic, atraumatic, anicteric, no JVD, status post trach Respiratory/Chest: crackles/rales, rhonchi - bilaterally Cardiovascular: normal rate, regular rhythm, no gallop/murmur Abdomen: normal bowel sounds, soft, non tender, no organomegaly, non distended Genitourinary: other - + joseph Extremities: no cyanosis Skin: no rash Neurologic/Psychiatric: case folder II-XII grossly normal, alert Lymphatic: no neck adenopathy Musculoskeletal: no effusion CT chest: IMPRESSION: There are mild subpleural ground-glass and consolidating infiltrates in the dependent portions of both lower lobes and to lesser degree the upper lobes consistent with bilateral pneumonia. The infiltrates are typical for Covid 19. No evidence of pulmonary embolus. CT abdomen and pelvis: IMPRESSION: 1. Scattered hepatic hypodense lesions, too small to characterize on this examination without intravenous contrast. 2. Colonic diverticulosis without evidence of acute diverticulitis. 3. Scattered enlarged mesenteric lymph nodes, presumably reactive. teral pneumonia. The infiltrates are typical for Covid 19. No evidence of pulmonary embolus. Chest x-ray - 12/19/19 - Indication: Shortness of breath Technique: One view of the chest Comparison: 02/17/2020 Findings: Interim worsening of bilateral infiltrates, particularly on the right. The heart is borderline enlarged. The pleural spaces are clear. Left arm PICC is again demonstrated Impression: Worsening bilateral infiltrates over one day, likely pneumonia CT chest - 02/19/20 - IMPRESSION: Increased extensive patchy ground-glass opacities and densities throughout the lungs, suggestive of Covid 19 infection. Chest x-ray 02/23/20 - Procedure: XRAY Chest 1v As Indication: Reason For Exam: INFECT Technique: One view of the chest Comparison: 02/20/2020 Findings: Allowing for differences in exposure technique, bilateral mid and lower lung infiltrates are probably unchanged. The heart size is normal. The pleural spaces are clear. Impression: Unchanged, over 4 days, findings as above. Chest x-ray - 02/25/20 - FINDINGS: Lungs: Interval slightly worsening bilateral airspace disease. Pleural space: Unremarkable. No pneumothorax. Heart: Unremarkable. No cardiomegaly. Mediastinum: Unremarkable. Bones/joints: Unremarkable. IMPRESSION: Interval slightly worsening bilateral airspace disease. Chest x-ray - 03/02/20 - Procedure: XRAY Chest 1v Indication: Shortness of breath Technique: One view of the chest Comparison: 02/25/2020 Findings: Bilateral interstitial and airspace infiltrates are unchanged. The h eart size is normal. Left arm PICC is again demonstrated Impression: Unchanged, over one day, findings as above. Chest x-ray - 03/06/20 - Procedure: XRAY Chest 1v Indication: Shortness of breath Technique: One view of the chest Comparison: 03/02/2020 Findings: Bilateral infiltrates are unchanged. Normal heart size. Pleural spaces are clear Chest x-ray - 03/12/10 - Impression: COMPARISON: Chest radiograph March 06, 2020. FINDINGS/IMPRESSION: Improving basilar infiltrates. Follow chest radiograph recommended. The upper lung finley are clear. No pneumothorax. Stable cardiomegaly. Stable left upper extremity PICC line. anged, over 4 days, findings as above. Chest x-ray - 03/17/20 - Procedure: XRAY Chest 1v Indication: Shortness of breath Technique: One view of the chest Comparison: 03/12/2020 Findings: Left arm PICC is again demonstrated. Infiltrates are unchanged. The heart size is upper limits of normal. Impression: Unchanged, over 5 days, findings as above. Abdominal US - IMPRESSION: 1. Gallbladder is normal. 2. Hepatic steatosis. 3. 1.7 cm cyst right kidney. Impression. Chest x-ray - Procedure: XRAY Chest 1v Indication: Shortness of breath Technique: One view of the chest Comparison: 03/17/2020 Findings: Bilateral right greater than left infiltrates again demonstrated. The heart size is normal. There is a left arm PICC in good position. Impression: Unchanged, over 5 days, findings as above. Chest x-ray - 03/29/20 - Procedure: XRAY Chest 1v Indication: Cough Technique: One view of the chest Comparison: 03/28/2020 Findings: Bilateral infiltrates are unchanged or slightly worse, allowing for differences in exposure technique. The pleural spaces are clear. The heart size is normal. Stable satisfactory position of endotracheal tube, left arm PICC. Orogastric tube has retracted somewhat the position remains satisfactory. Impression: Stable to slightly worse bilateral infiltrates. Otherwise little supervisor records change one day Chest x-ray - 03/31/20 - Procedure: XRAY Chest 1v Indication: Post endotracheal tube repositioning Technique: One view of the chest Comparison: 3 hours earlier Findings: Interim advancement of endotracheal tube, tip projecting approximately 5 cm above the sunny. Interim advancement of orogastric tube as well. Bilateral infiltrates are unchanged. Left arm PICC remains Impression: Improved and now satisfactory tube positions as described. ICU nurse Maeve notified at the time of interpretation Chest x-ray - 04/02/20 - COMPARISON: Chest x-rays dated 03/31/20 and 03/12/20. FINDINGS: Lungs: No significant change in bilateral prominent interstitial markings. The lungs are otherwise clear without focal consolidation. Pleural space: Unremarkable. The costophrenic angles are sharp. No visible pneumothorax. Heart: Unremarkable. No cardiomegaly. Mediastinum: Unremarkable. Bones/joints: Unremarkable. Tubes, lines and devices: Endotracheal tube tip 6.5 cm above the sunny. NG tube tip in the distal stomach. Telemetry leads overlie the thorax. IMPRESSION: No significant change in bilateral prominent interstitial markings. Procedure: XRAY Chest 1v Procedure: XRAY Chest 1v Reason for study: Shortness of breath 04/06/20 - Comparison films: 04/02/2020. FINDINGS: Endotracheal tube and NG tube remain in place. There is worsening of right basilar infiltrates. Some haziness in left lung base unchanged. Cardiac and mediastinal silhouette are within normal limits. CP angles are sharp. The bony thorax appear unremarkable. IMPRESSION: Worsening of right basilar infiltrate. Chest x-ray - 04/09/20 - Procedure: XRAY Chest 1v FILM CXR 1 VIEW INDICATION: Infection COMPARISON: April 05, 2020 FINDINGS: Single frontal view demonstrates a normal cardiomediastinal silhouette. Endotracheal tube in place with tip above the sunny. Elevation of the right hemidiaphragm. Interstitial prominence with bilateral lower lobe infiltrates. Lung bases appear worse from the prior exam. Small right effusion. Right-sided PICC line with tip in the superior vena cava. Enteric tube in place. IMPRESSION: Interstitial prominence and bilateral lower lobe pneumonia with worsening appearance from the prior study. Chest x-ray - 04/12/20 - Procedure: XRAY Chest 1v Indication: Shortness of breath Technique: One view of the chest Comparison: 04/09/2020 Findings: Stable satisfactory tube and line positions. Bilateral infiltrates have worsened slightly since prior study. The heart size is normal. Impression: Worsening bilateral infiltrates, over 3 days Chest x-ray - 04/15/20 - COMPARISON: 02/11/21. FINDINGS: Lungs: There is been no significant change in mild to moderate patchy diffuse bilateral alveolar infiltrates which are most prominent in the lung bases. Pleural space: Unremarkable. No pneumothorax. Heart: Unremarkable. No cardiomegaly. Mediastinum: Unremarkable. Bones/joints: Unremarkable. Tubes, lines and devices: There is an endotracheal tube, right-sided PICC line and NG tube in good position. IMPRESSION: There is been no significant change in mild to moderate patchy diffuse bilateral alveolar infiltrates which are most prominent in the lung bases. Chest x-ray - 04/18/20 - Procedure: XRAY Chest 1v Indication: Cough Technique: One view of the chest Comparison: 04/15/2020 Findings: Less optimal inspiration currently than previously. Stable satisfactory positions of endotracheal and orogastric tubes and right arm PICC. Bilateral infiltrates are again demonstrated, unchanged. Impression: Unchanged, over 3 days, findings as above. Chest x-ray - 04/21/20 - Procedure: XRAY Chest 1v Indication: Dyspnea Technique: One view of the chest Comparison: 04/18/2020 Findings: Stable tube and line positions. Bilateral infiltrates are unchanged Impression: Unchanged, over one day, findings as above. Procedure: XRAY Chest 1v Procedure: XRAY Chest 1v Reason for study: Reason For Exam: SOB Chest x-ray - 04/25/20 - Comparison films: 04/21/2020. FINDINGS: Endotracheal tube, NG tube and right PICC line remain in place. Vascularity is normal. Bilateral infiltrates are unchanged. Cardiac and mediastinal silhouette are within normal limits. CP angles are sharp. The bony thorax appear unremarkable. IMPRESSION: NO SIGNIFICANT CHANGE COMPARED TO PREVIOUS EXAM. Chest x-rasy - 04/30/20 - FINDINGS: Lungs: Bilateral patchy pulmonary opacities concerning for pneumonia, not significantly changed compared to the prior chest x-ray. Pleural space: Unremarkable. The costophrenic angles are sharp. No visible pneumothorax. Heart: Unremarkable. No cardiomegaly. Mediastinum: Unremarkable. Bones/joints: Unremarkable. Tubes, lines and devices: Tracheostomy tube in place, with expected positioning. Telemetry leads overlie the thorax. Right arm PICC with catheter tip in the SVC region. IMPRESSION: Bilateral patchy pulmonary opacities concerning for pneumonia, not significantly changed compared to the prior chest x-ray. Microbiology Date/Time Source Procedure Growth Status 04/29/20 19:00 Blood Blood Culture - Preliminary NO GROWTH AFTER 72 HOURS Resulted 04/14/20 16:35 Stool Clostridium difficile Toxin Assay - Final Complete 04/12/20 08:40 Urine,Clean Catch Urine Culture - Final Cynthia Parapsilosis Complete 04/12/20 08:40 Sputum Gram Stain - Final Complete 04/12/20 08:40 Sputum Sputum Culture - Final NORMAL UPPER RESPIRATORY WILIAM AT 48 ... Complete Labs Test 05/01/20 00:27 05/01/20 03:48 05/01/20 06:43 05/02/20 03:30 POC Whole Blood Glucose 143 MG/DL (74-106) White Blood Count 7.8 K/UL (4.8-10.8) 6.9 K/UL (4.8-10.8) Red Blood Count 3.36 M/UL (4.70-6.10) 3.17 M/UL (4.70-6.10) Hemoglobin 9.6 G/DL (14.2-18.0) 9.1 G/DL (14.2-18.0) Hematocrit 30.5 % (42.0-52.0) 28.8 % (42.0-52.0) Mean Corpuscular Volume 91 FL (80-99) 91 FL (80-99) Mean Corpuscular Hemoglobin 28.5 PG (27.0-31.0) 28.6 PG (27.0-31.0) Mean Corpuscular Hemoglobin Concent 31.3 G/DL (32.0-36.0) 31.4 G/DL (32.0-36.0) Red Cell Distribution Width 16.9 % (11.6-14.8) 16.5 % (11.6-14.8) Platelet Count 297 K/UL (150-450) 260 K/UL (150-450) Mean Platelet Volume 6.1 FL (6.5-10.1) 6.5 FL (6.5-10.1) Neutrophils (%) (Auto) % (45.0-75.0) % (45.0-75.0) Lymphocytes (%) (Auto) % (20.0-45.0) % (20.0-45.0) Monocytes (%) (Auto) % (1.0-10.0) % (1.0-10.0) Eosinophils (%) (Auto) % (0.0-3.0) % (0.0-3.0) Basophils (%) (Auto) % (0.0-2.0) % (0.0-2.0) Sodium Level 146 MMOL/L (136-145) 142 MMOL/L (136-145) Potassium Level 3.8 MMOL/L (3.5-5.1) 3.9 MMOL/L (3.5-5.1) Chloride Level 106 MMOL/L (98-107) 105 MMOL/L (98-107) Carbon Dioxide Level 31 MMOL/L (21-32) 31 MMOL/L (21-32) Anion Gap 9 mmol/L (5-15) 6 mmol/L (5-15) Blood Urea Nitrogen 11 mg/dL (7-18) 15 mg/dL (7-18) Creatinine 0.3 MG/DL (0.55-1.30) 0.4 MG/DL (0.55-1.30) Estimat Glomerular Filtration Rate > 60 mL/min (>60) > 60 mL/min (>60) Glucose Level 139 MG/DL (74-106) 113 MG/DL (74-106) Calcium Level 8.8 MG/DL (8.5-10.1) 8.7 MG/DL (8.5-10.1) Phosphorus Level 3.6 MG/DL (2.5-4.9) Magnesium Level 2.0 MG/DL (1.8-2.4) Total Bilirubin 0.6 MG/DL (0.2-1.0) Direct Bilirubin 0.2 MG/DL (0.0-0.3) Aspartate Amino Transf (AST/SGOT) 18 U/L (15-37) Alanine Aminotransferase (ALT/SGPT) 46 U/L (12-78) Alkaline Phosphatase 153 U/L (46-116) Total Protein 5.8 G/DL (6.4-8.2) Albumin 2.5 G/DL (3.4-5.0) Differential Total Cells Counted 100 Neutrophils % (Manual) 80 % (45-75) Lymphocytes % (Manual) 15 % (20-45) Monocytes % (Manual) 4 % (1-10) Eosinophils % (Manual) 1 % (0-3) Basophils % (Manual) 0 % (0-2) Band Neutrophils 0 % (0-8) Platelet Estimate Adequate Platelet Morphology Normal Hypochromasia 1+ Anisocytosis 1+ Test 05/02/20 15:25 Urine Color Yellow Urine Appearance Slightly cloudy Urine pH 9 (4.5-8.0) Urine Specific [place] 1.015 (1.005-1.035) Urine Protein 2+ (NEGATIVE) Urine Glucose (UA) Negative (NEGATIVE) Urine Ketones Negative (NEGATIVE) Urine Blood 4+ (NEGATIVE) Urine Nitrite Negative (NEGATIVE) Urine Bilirubin Negative (NEGATIVE) Urine Urobilinogen 1 MG/DL (0.0-1.0) Urine Leukocyte Esterase 1+ (NEGATIVE) Urine RBC 5-10 /HPF (0 - 0) Urine WBC 2-4 /HPF (0 - 0) Urine Squamous Epithelial Cells None /LPF (NONE/OCC) Urine Bacteria Few /HPF (NONE) Urine Yeast Moderate /HPF (NONE) Current Medications Medications (Trade) Dose Ordered Sig/Dennis Route PRN Reason Start Time Stop Time Status Last Admin Dose Admin Acetaminophen (Tylenol) 650 mg Q4H PRN GT Mild Pain (Pain Scale 1-3) 05/02/20 08:45 06/01/20 08:44 05/02/20 09:04 Acetaminophen/ Hydrocodone Bitart ([place] 5/325) 1 tab Q4H GT 05/02/20 11:00 05/09/20 10:59 05/03/20 14:19 Amlodipine Besylate (Norvasc) 2.5 mg BID GT 05/02/20 18:00 06/02/20 08:59 05/03/20 08:53 Chlorhexidine Gluconate (Marlen-Hex 2%) 1 applic DAILY@1999 TOPIC 03/30/20 20:00 06/28/20 19:59 05/02/20 20:00 Dextrose (Dextrose 50%) 25 ml Q30M PRN IV Hypoglycemia 03/29/20 20:45 06/27/20 20:44 Dextrose (Dextrose 50%) 50 ml Q30M PRN IV Hypoglycemia 03/29/20 20:45 06/27/20 20:44 Enoxaparin Sodium (Lovenox) 80 mg EVERY 12 HOURS SUBQ 04/06/20 21:00 07/05/20 20:59 05/03/20 08:56 Famotidine (Pepcid I.v.) 20 mg Q12HR PRN IVP HEART BURN 05/02/20 15:15 06/01/20 15:14 05/02/20 22:10 Fentanyl Citrate 250 ml @ 1 mls/hr Q24H PRN IV SEDATION 04/30/20 07:30 05/03/20 23:59 05/02/20 18:22 Hydralazine HCl (Apresoline) 10 mg Q4H PRN IV For High Blood Pressure 03/30/20 12:15 06/28/20 12:14 05/02/20 21:07 Insulin Aspart (NovoLOG) Q6HR SUBQ 03/30/20 00:00 06/28/20 00:00 05/01/20 18:00 Lansoprazole (Prevacid) 30 mg DAILY GT 05/02/20 09:00 06/01/20 08:59 05/03/20 08:54 Lorazepam (Ativan) 1 mg THREE TIMES A DAY ORAL 05/01/20 13:00 05/08/20 12:59 05/03/20 13:07 Methylprednisolone Sodium Succinate (Solu-MEDROL) 20 mg Q12HR IVP 04/12/20 21:00 06/20/20 20:59 05/03/20 08:54 Midazolam HCl 200 ml @ 0 mls/hr Q24H IV 05/02/20 05:00 05/09/20 04:59 05/02/20 18:21 Quetiapine Fumarate (SEROqueL) 50 mg EVERY 8 HOURS ORAL 04/29/20 12:00 06/11/20 11:59 05/03/20 14:18 Trimethoprim/ Sulfamethoxazole (Bactrim-DS) 1 tab DAILY ORAL 04/30/20 09:00 05/07/20 08:59 05/03/20 08:55 Kisha Salazar MD May 03, 2020 17:06
--- NOTE | 2020-05-03 18:26 | NUR ---
insurance CLINCALS FAXED TO [employer] T: [phone] #1 F: [phone] AND [employer]PER[employer]:JACQUELINE JAMES T: [phone] F: [phone] [facility] #[phone]
--- NOTE | 2020-05-03 19:30 | NUR ---
NURSE NOTES: Reeceived report on patient. Vitals are stable at this time. Patient denies pain at tis time. Patient tearful and depressed due to his current situation. RN will continue to monitor.
[2020-05-03] MEDS: Dyna-Hex 2% Top Sol 2oz TOPIC SCH (20:00)
--- NOTE | 2020-05-03 21:30 | NUR ---
NURSE NOTES: Patient resting. patient vitals stable. Patient repositioned. RN will continue to monitor.
[2020-05-04] VITALS (64 sets, daily range): BP systolic 108–205; BP diastolic 60–94
--- NOTE | 2020-05-04 | NUR ---
NURSE NOTES: Patient resting. Patient vitals stable at this time. Patient denies pain. Patient oral care provided. RN will continue to monitor.
--- NOTE | 2020-05-04 02:00 | NUR ---
NURSE NOTES: Patient vitals are stable at this time. Patient denies pain. Patient repositioned. RN will continue to monitor.
--- NOTE | 2020-05-04 03:30 | NUR ---
NURSE NOTES: Patient resting. Vitals stable at this time. Oral completed. RN will continue to monitor.
[2020-05-04] MEDS: HYDROcodone/Acetamin 5/325 tab GT SCH ×6 (03:35→22:40)
[2020-05-04] MEDS: Versed 100mg/NS 200ml 200 ML IV SCH (05:00)
[2020-05-04] MEDS: fentaNYL 2500mcg/NS 250ml 250 ML IV SCH ×2 (05:00→09:00)
--- NOTE | 2020-05-04 05:50 | NUR ---
NURSE NOTES: Patient vitals stable at this time. Patient denies pain. patient repositioned. RN will continue to monitor.
[2020-05-04] MEDS: NovoLOG Insulin Flexpen SUBQ SCH ×4 (06:00→23:46)
[2020-05-04 06:01] LABS: BASOPHILS % (AUTO) 0.7 % (0.0-2.0); EOSINOPHILS % (AUTO) 0.7 % (0.0-3.0); HEMATOCRIT 32.9 % (42.0-52.0); LYMPHOCYTES % (AUTO) 18.9 % (20.0-45.0); MEAN CORPUSCULAR VOLUME 93 FL (80-99); MONOCYTES % (AUTO) 6.9 % (1.0-10.0); NEUTROPHILS % (AUTO) 72.8 % (45.0-75.0); PLATELET COUNT 286 K/UL (150-450); RED BLOOD COUNT 3.55 M/UL (4.70-6.10); WHITE BLOOD COUNT 7.3 K/UL (4.8-10.8)
[2020-05-04 06:18] LABS: ALANINE AMINOTRANSFERASE 30 U/L (12-78); ALBUMIN 2.7 G/DL (3.4-5.0); ALBUMIN/GLOBULIN RATIO 0.9 (1.0-2.7); ALKALINE PHOSPHATASE 102 U/L (46-116); ANION GAP 8 mmol/L (5-15); ASPARTATE AMINO TRANSFERASE 10 U/L (15-37); BILIRUBIN,TOTAL 0.3 MG/DL (0.2-1.0); BLOOD UREA NITROGEN 16 mg/dL (7-18); CALCIUM 8.5 MG/DL (8.5-10.1); CARBON DIOXIDE 30 MMOL/L (21-32); CHLORIDE 105 MMOL/L (98-107); CREATININE 0.4 MG/DL (0.55-1.30); PHOSPHORUS 3.3 MG/DL (2.5-4.9); POTASSIUM 3.8 MMOL/L (3.5-5.1); SODIUM 142 MMOL/L (136-145)
[2020-05-04] MEDS: Bactrim-DS 1 tab ORAL SCH (09:48)
[2020-05-04] MEDS: Solu-MEDROL 40mg Inj IVP SCH ×2 (09:48→20:58)
[2020-05-04] MEDS: LORazepam 1mg tab ORAL SCH ×3 (09:49→18:45)
[2020-05-04] MEDS: Enoxaparin 80mg Inj SUBQ SCH ×2 (09:50→20:59)
--- NOTE | 2020-05-04 10:36 | Surgery Progress Note ---
Surgery Progress Note Subjective Procedure Performed tracheostomy Symptoms: improved, tolerating diet, passing flatus Objective Last 24 Hour Vital Signs Date Time Temp Pulse Resp B/P (MAP) Pulse Ox O2 Delivery O2 Flow Rate FiO2 05/04/20 10:00 66 19 137/69 (91) 99 05/04/20 09:50 68 142/67 05/04/20 09:49 68 19 142/67 99 05/04/20 09:00 82 22 108/76 (87) 95 05/04/20 09:00 19 136/58 Mechanical Ventilator 45 05/04/20 08:00 Mechanical Ventilator 05/04/20 08:00 83 05/04/20 08:00 98.7 67 19 142/65 (90) 97 05/04/20 07:56 69 16 40 05/04/20 07:30 68 18 130/64 (86) 98 05/04/20 07:19 45 05/04/20 07:15 65 18 136/63 (87) 98 05/04/20 07:00 65 18 150/71 (97) 98 05/04/20 06:45 64 18 142/69 (93) 97 05/04/20 06:30 82 22 154/73 (100) 97 05/04/20 06:15 77 19 160/75 (103) 96 05/04/20 06:00 76 21 160/83 (108) 95 05/04/20 06:00 18 136/76 Mechanical Ventilator 45 05/04/20 05:45 71 22 162/72 (102) 96 05/04/20 05:30 79 21 158/80 (106) 95 05/04/20 05:15 73 21 161/78 (105) 96 05/04/20 05:06 81 22 40 05/04/20 05:00 85 21 165/80 (108) 94 05/04/20 05:00 20 136/77 Mechanical Ventilator 30 05/04/20 04:45 74 19 161/76 (104) 97 05/04/20 04:30 70 19 154/72 (99) 97 05/04/20 04:15 72 21 163/74 (103) 96 05/04/20 04:00 99.1 76 22 167/70 (102) 96 05/04/20 04:00 88 05/04/20 04:00 Mechanical Ventilator 05/04/20 04:00 45 05/04/20 03:45 87 24 162/68 (99) 96 05/04/20 03:30 76 23 157/73 (101) 96 05/04/20 03:15 78 21 159/66 (97) 96 05/04/20 03:05 78 24 40 05/04/20 03:00 64 17 144/61 (88) 97 05/04/20 02:45 60 18 136/67 (90) 98 05/04/20 02:30 62 18 131/66 (87) 98 05/04/20 02:15 63 18 120/67 (84) 97 05/04/20 02:00 64 18 136/66 (89) 97 05/04/20 01:45 70 18 125/63 (83) 97 05/04/20 01:30 74 20 133/60 (84) 97 05/04/20 01:15 70 19 146/68 (94) 98 05/04/20 01:11 76 19 40 05/04/20 01:00 66 18 148/65 (92) 97 05/04/20 00:45 69 18 145/69 (94) 97 05/04/20 00:30 67 18 131/82 (98) 97 05/04/20 00:15 66 18 144/68 (93) 97 05/04/20 00:00 Mechanical Ventilator 05/04/20 00:00 45 05/04/20 00:00 67 19 130/68 (88) 97 05/04/20 00:00 95 05/04/20 00:00 67 19 97 05/03/20 23:45 74 20 144/62 (89) 97 05/03/20 23:30 73 20 155/77 (103) 100 05/03/20 23:15 70 19 139/77 (97) 97 05/03/20 23:10 71 19 40 05/03/20 23:00 18 136/71 Mechanical Ventilator 45 05/03/20 23:00 74 19 139/69 (92) 96 05/03/20 22:45 77 20 154/66 (95) 96 05/03/20 22:30 74 19 141/67 (91) 96 05/03/20 22:15 84 22 155/73 (100) 96 05/03/20 22:00 18 153/68 Mechanical Ventilator 45 05/03/20 22:00 80 21 170/78 (108) 96 05/03/20 21:45 84 21 156/79 (104) 94 05/03/20 21:30 83 21 152/77 (102) 95 05/03/20 21:15 86 20 164/77 (106) 100 05/03/20 21:14 83 23 40 05/03/20 21:00 88 22 149/74 (99) 92 05/03/20 21:00 18 166/71 Mechanical Ventilator 40 05/03/20 20:45 91 24 162/64 (96) 93 05/03/20 20:30 86 22 155/70 (98) 95 05/03/20 20:15 68 3 132/70 (90) 95 05/03/20 20:00 40 05/03/20 20:00 68 10 143/85 (104) 95 05/03/20 20:00 Mechanical Ventilator 05/03/20 20:00 18 154/78 Mechanical Ventilator 40 05/03/20 20:00 79 05/03/20 19:45 71 5 141/67 (91) 95 05/03/20 19:30 71 4 135/72 (93) 95 05/03/20 19:18 73 18 40 05/03/20 19:00 20 142/75 Mechanical Ventilator 40 05/03/20 19:00 80 20 142/75 (97) 93 05/03/20 18:39 85 18 103/62 100 05/03/20 18:30 86 22 155/71 (99) 95 05/03/20 18:09 67 18 138/68 95 05/03/20 18:08 67 138/68 05/03/20 18:00 67 18 138/68 (91) 95 05/03/20 18:00 18 138/68 Mechanical Ventilator 40 05/03/20 17:30 79 19 144/77 (99) 91 05/03/20 17:00 66 18 125/66 (85) 97 05/03/20 17:00 18 125/66 Mechanical Ventilator 40 05/03/20 16:30 69 18 122/67 (85) 96 05/03/20 16:00 Mechanical Ventilator 05/03/20 16:00 18 123/66 Mechanical Ventilator 40 05/03/20 16:00 73 05/03/20 16:00 98.8 73 18 123/66 (85) 95 05/03/20 16:00 40 05/03/20 15:30 20 128/63 Mechanical Ventilator 40 05/03/20 15:30 82 21 128/61 (83) 94 05/03/20 15:15 23 128/61 Mechanical Ventilator 40 05/03/20 15:00 98 24 151/70 (97) 90 05/03/20 15:00 22 142/62 Mechanical Ventilator 40 05/03/20 14:45 20 151/70 Mechanical Ventilator 40 05/03/20 14:35 67 18 40 05/03/20 14:30 19 142/64 Mechanical Ventilator 40 05/03/20 14:30 71 18 139/66 (90) 97 05/03/20 14:15 18 139/66 Mechanical Ventilator 40 05/03/20 14:00 20 137/71 Mechanical Ventilator 45 05/03/20 14:00 73 20 137/71 (93) 97 05/03/20 13:37 69 19 137/71 97 05/03/20 13:30 78 21 143/69 (93) 95 05/03/20 13:07 88 18 156/68 93 05/03/20 13:00 21 143/69 Mechanical Ventilator 45 05/03/20 13:00 97 22 156/68 (97) 93 05/03/20 12:30 94 21 151/66 (94) 94 05/03/20 12:00 98.5 110 28 153/69 (97) 92 05/03/20 12:00 23 151/66 Mechanical Ventilator 45 05/03/20 12:00 109 05/03/20 12:00 Mechanical Ventilator 05/03/20 12:00 45 05/03/20 11:30 87 22 138/60 (86) 96 05/03/20 11:00 18 138/60 Mechanical Ventilator 45 05/03/20 11:00 61 18 126/61 (82) 96 05/03/20 10:45 72 18 45 I&O Intake and Output 05/03/20 05/04/20 19:00 07:00 Intake Total 660.75 ml 513 ml Output Total 590 ml 910 ml Balance 70.75 ml -397 ml Free Water 130 ml IV Total 50.75 ml 33 ml Tube Feeding 480 ml 480 ml Output Urine Total 590 ml 910 ml Dressing: saturated Cardiovascular: RSR Respiratory: decreased breath sounds Abdomen: soft, flat, non-tender, present bowel sounds, non-distended Extremities: no tenderness, no cyanosis Laboratory Tests Test 05/04/20 03:35 White Blood Count 7.3 K/UL (4.8-10.8) Red Blood Count 3.55 M/UL (4.70-6.10) L Hemoglobin 10.0 G/DL (14.2-18.0) L Hematocrit 32.9 % (42.0-52.0) L Mean Corpuscular Volume 93 FL (80-99) Mean Corpuscular Hemoglobin 28.3 PG (27.0-31.0) Mean Corpuscular Hemoglobin Concent 30.5 G/DL (32.0-36.0) L Red Cell Distribution Width 17.0 % (11.6-14.8) H Platelet Count 286 K/UL (150-450) Mean Platelet Volume 6.1 FL (6.5-10.1) L Neutrophils (%) (Auto) 72.8 % (45.0-75.0) Lymphocytes (%) (Auto) 18.9 % (20.0-45.0) L Monocytes (%) (Auto) 6.9 % (1.0-10.0) Eosinophils (%) (Auto) 0.7 % (0.0-3.0) Basophils (%) (Auto) 0.7 % (0.0-2.0) Sodium Level 142 MMOL/L (136-145) Potassium Level 3.8 MMOL/L (3.5-5.1) Chloride Level 105 MMOL/L (98-107) Carbon Dioxide Level 30 MMOL/L (21-32) Anion Gap 8 mmol/L (5-15) Blood Urea Nitrogen 16 mg/dL (7-18) Creatinine 0.4 MG/DL (0.55-1.30) L Estimat Glomerular Filtration Rate > 60 mL/min (>60) Glucose Level 88 MG/DL (74-106) Calcium Level 8.5 MG/DL (8.5-10.1) Phosphorus Level 3.3 MG/DL (2.5-4.9) Magnesium Level 2.1 MG/DL (1.8-2.4) Total Bilirubin 0.3 MG/DL (0.2-1.0) Aspartate Amino Transf (AST/SGOT) 10 U/L (15-37) L Alanine Aminotransferase (ALT/SGPT) 30 U/L (12-78) Alkaline Phosphatase 102 U/L (46-116) C-Reactive Protein, Quantitative 2.1 mg/dL (0.00-0.90) H Pro-B-Type Natriuretic Peptide 615 pg/mL (0-125) H Total Protein 5.8 G/DL (6.4-8.2) L Albumin 2.7 G/DL (3.4-5.0) L Globulin 3.1 g/dL Albumin/Globulin Ratio 0.9 (1.0-2.7) L Plan Problems: (1) Pneumonia (2) Staphylococcus aureus bacteremia (3) COVID-19 virus infection (4) Chest pain (5) Hypertension (6) Dehydration (7) Electrolyte imbalance (8) DMII (diabetes mellitus, type 2) (9) Protein malnutrition (10) Respiratory insufficiency Assessment & Plan: 64-year-old male with respiratory insufficiency intubated in an intensive care unit. Patient has been unable to safely wean off ventilatory support. Surgery called to evaluate for tracheostomy. After careful evaluation patient is a candidate for tracheostomy. In the meantime will obtain consent. If consent obtained will proceed with scheduling. Thank you for your participation's care will follow recommendations improving trach okay agitated weaning sedation no n/v cont weaning transition to oral meds via g tube get off Booker Chang May 04, 2020 10:36
--- NOTE | 2020-05-04 10:42 | Nephrology Progress Note ---
Assessment/Plan Problem List: (1) Dehydration (2) Electrolyte imbalance (3) COVID-19 virus infection (4) Pneumonia (5) DMII (diabetes mellitus, type 2) (6) Protein malnutrition Assessment Azotemia, hypernatremia Hypoalbuminemia Staff Otilia bacteremia COVID-19 isolation, pneumonia, bilateral infiltrate Hypertension Diabetes mellitus History of smoking Plan May 04: Labs reviewed. Renal parameters stable. Overall status unchanged. Remains full code. Fed through GT tube. Trach to vent. FiO2 45%. Continue per consultants. May 03: No CHEM panel drawn today. Patient clinically stable. Has trach to vent and PEG. Will check lab tomorrow. May 02: Labs reviewed. Status quo. Patient is trached and vented. Also has PEG. Is full code. Stable from renal standpoint of view. May 01: Labs reviewed. Status quo. Patient has trach connected to vent. Has PEG. He is full code. FiO2 50%. April 30: Status quo. Labs reviewed. Renal parameters stable. Medication list reviewed. April 29: Status quo. Received PEG yesterday. Has trach connected to vent. FiO2 40%. Labs reviewed. Medication list reviewed. Continue same April 28: Status quo. Labs reviewed. Renal parameters stable. Patient n.p.o. due for PEG insertion. IV changed to D5 normal saline. Continue per consultants. April 27: Status quo. Labs reviewed. Medication list reviewed. Stable from renal standpoint of view. Abnormal electrolytes addressed. April 26: Patient is now trached and connected to vent. FiO2 70%. Labs reviewed. Renal parameters stable. Medication list reviewed. Continue per consultants. April 25: Status quo. Full code. FiO2 55%. No labs drawn today. Continue to monitor electrolytes and renal parameters. Continue per consultants. April 24: Status quo. Full code. Intubated on ventilator. FiO2 65%. Labs reviewed. Renal parameters and electrolytes stable. April 23: Status unchanged. Full code. Intubated on ventilator. FiO2 75%. Labs reviewed. Renal parameters stable. Continue per consultants. April 22: Labs reviewed. Patient remains intubated on ventilator and full code. FiO2 90%. Day 77 hospitalization. Not much to add from renal standpoint of view April 21: No CHEM panel drawn today. FiO2 60%. Patient full code. Continue per consultants. April 20: Labs reviewed. Renal parameters stable. Patient remains full code. Intubated on ventilator with FiO2 currently at 70%. Continue per consultants. April 19: No labs drawn today. Remains full code on FiO2 of 100%. Continue per consultants. April 18: Status quo. Labs reviewed. Renal parameters stable. April 17: Status quo. Intubated on ventilator. Full code. Labs reviewed. Electrolytes and renal parameters stable. Continue per consultants. April 16: Girlfriend in the room. Patient awake. Intubated. Full code. Labs reviewed. Abnormal electrolyte addressed. Continue per consultants. April 15: Labs reviewed. Electrolytes and renal parameters stable. Patient full code. Continues to be intubated on ventilator. April 14: Status quo. Labs reviewed. Remains intubated on ventilator. Full code. Continue per consultants. April 13: Status quo. Labs reviewed. Renal parameters electrolytes stable. Continue per current treatment plan. April 12: On higher FiO2. Will resume Lasix daily. Continue to monitor electrolytes and renal parameters. Per consultants. April 11: FiO2 went up to 85%. Renal parameters and electrolytes reasonably well-maintained. Will monitor serum potassium. Will give IV Lasix. April 10: Status quo. Labs reviewed. Remains intubated on ventilator with FiO2 of 65%. Remains full code. Stable from renal standpoint to view. Repeat vitamin D level on April 08 pending April 09: Status quo. Labs reviewed. Stable from renal standpoint of view. Continue per consultants. April 08: Discussed with RN. Labs reviewed. Clinically improving. Requires lower PEEP. Continue per pulmonary. Continue to monitor renal parameters. April 07: Remains full code and on ventilator. Labs reviewed. Renal parameters and electrolytes stable. Continue per consultants. Blood pressure marginally improved. April 06: Full code. On ventilator. Blood pressure 80-90 systolic. IV Lasix discontinued. Free water through tube feeding ordered. Continue to monitor electrolytes and serum sodium. Down on fentanyl as possible. Discussed with PRIYANKA Brown. Clonidine patch discontinued. April 05: Status quo. Remains full code. Remains intubated. Labs reviewed. Renal parameters stable. Serum sodium 150 unchanged. Continue per consultants. April 04: Remains intubated and on ventilator. Remains full code. Labs reviewed. Serum sodium 150 unchanged. Renal parameters stable. Continue per ID and pulmonary. April 03: Intubated. On ventilator. Full code. Labs reviewed. Serum sodium 150 unchanged. Continue to monitor renal parameters. Continue per pulmonary and ID. April 02: Full code. On ventilator. Discussed with RN. Serum sodium slightly higher. Will cut down on IV Lasix. Continue per consultants. Continue to monitor renal parameters and electrolytes. April 01: Full code. Remains on ventilator. Labs reviewed. Stable from renal standpoint of view. Continue per consultants. March 31: Full code . Remains intubated on ventilator. Labs reviewed. Patient appears toxic. Discussed with RN. Maintenance IV discontinued. Medication list reviewed. Blood pressure medication stopped due to low blood pr essure. Levemir insulin stopped. Continue monitor blood sugar and sliding scale insulin. March 30: Full code. On ventilator. Labs reviewed. Clonidine patch dose increased. Lasix increased. 3% saline 1 time ordered. Continue to monitor electrolytes and renal parameters. March 29: Remains full code. On mechanical ventilation. On tube feeding. Will DC TPN. Will start on maintenance IV fluid. Continue to monitor renal parameters. March 28: On BiPAP. Full code. On TPN. Labs reviewed. Discussed with pharmacy. Continue as is. Watch serum potassium. March 27: Remains on BiPAP. No chemistry panel done today. Full code. On TPN. Will check lab tomorrow. March 26: Remains on BiPAP. Remains on TPN. Labs reviewed. Electrolytes and chemistries within normal limits. Continue as is. March 25: Remains on TPN. Labs reviewed. Discussed with pharmacy. Change IV Protonix to p.o. Continue 3% saline infusion with Lasix. Patient full code. March 24: Continue to be on TPN. Labs are reviewed. Aim to collect electrolytes. Discussed with pharmacy. Continue current consultants. March 23: Continues to be on TPN. Labs reviewed. Electrolytes and chemistries all acceptable. Discussed with pharmacy. Continue current management. March 22: On TPN. Labs reviewed. Low sodium noted. 3% saline to be continued. Continue to monitor electrolytes. Discussed with pharmacy. March 21: On TPN. Labs reviewed. Continue 3% saline and Lasix for mild hyponatremia. Continue TPN as these. Discussed with pharmacy. March 20: Remains on TPN. Labs reviewed. Serum sodium higher on IV Lasix and 3% saline infusion. Continue TPN as is. Continue to monitor renal parameters and electrolytes. Discussed with Dr. Mata March 19: Remains on TPN. Labs reviewed. Serum sodium 128. Will give 3% saline with IV Lasix. Continue to monitor electrolytes. No change in TPN composition. Discussed with pharmacy. March 18: Remains on TPN. Labs reviewed. Discussed with pharmacist. Will give 3 doses of IV Lasix 20 mg every 8 hours. Continue to monitor serum sodium electrolytes uric acid. White blood cells down. Continue per consultants. March 17: On TPN. Labs reviewed. Discussed with pharmacist. Sodium content increase. Continue to monitor CMP. Patient continues to have leukocytosis. March 16: On TPN. Labs reviewed. Discussed with pharmacist. Appropriate changes made. Continue to monitor electrolytes. March 15: Remains on TPN. Labs reviewed. Discussed with pharmacist. Continue per current management. March 14: Remains on TPN. Labs reviewed, stable. Vitamin D level low, replacement ordered. Continue to monitor electrolytes and renal parameters. March 13: Patient remains on TPN. Discussed with pharmacist. TPN's sodium content adjusted. Labs reviewed. Continue to monitor electrolytes. Blood pressure remains stable. Continue per consultants. March 12: Patient on TPN. Labs reviewed. CPK remains elevated. Abnormal electrolytes and high blood sugar discussed with pharmacist and TPN adjusted. Continue to monitor labs. Oral Protonix added. Ibuprofen discontinued. Can continue to monitor electrolytes and chemistries. Levemir for high blood sugar added. March 11: Patient on TPN. Labs as of 11:15 AM is still pending. Continue per current treatment plan. Will check labs and adjust TPN as needed. Continue per consultants. March 10: Patient on TPN. Labs reviewed. Electrolytes overall stable. CPK is elevated. Will monitor electrolyte, CPK level, lipid panel. Continue per cons ultants. Discussed with pharmacist. Discussed with RN. Nutritional evaluation noted. Previously: D5W 100 cc an hour Monitor electrolytes renal parameters TPN and Intralipid ordered Will follow Continue per consultants Dietary consult requested Subjective ROS Limited/Unobtainable: Yes Objective Objective Last 24 Hour Vital Signs Date Time Temp Pulse Resp B/P (MAP) Pulse Ox O2 Delivery O2 Flow Rate FiO2 05/04/20 10:00 66 19 137/69 (91) 99 05/04/20 09:50 68 142/67 05/04/20 09:49 68 19 142/67 99 05/04/20 09:00 82 22 108/76 (87) 95 05/04/20 09:00 19 136/58 Mechanical Ventilator 45 05/04/20 08:00 Mechanical Ventilator 05/04/20 08:00 83 05/04/20 08:00 98.7 67 19 142/65 (90) 97 05/04/20 07:56 69 16 40 05/04/20 07:30 68 18 130/64 (86) 98 05/04/20 07:19 45 05/04/20 07:15 65 18 136/63 (87) 98 05/04/20 07:00 65 18 150/71 (97) 98 05/04/20 06:45 64 18 142/69 (93) 97 05/04/20 06:30 82 22 154/73 (100) 97 05/04/20 06:15 77 19 160/75 (103) 96 05/04/20 06:00 76 21 160/83 (108) 95 05/04/20 06:00 18 136/76 Mechanical Ventilator 45 05/04/20 05:45 71 22 162/72 (102) 96 05/04/20 05:30 79 21 158/80 (106) 95 05/04/20 05:15 73 21 161/78 (105) 96 05/04/20 05:06 81 22 40 05/04/20 05:00 85 21 165/80 (108) 94 05/04/20 05:00 20 136/77 Mechanical Ventilator 30 05/04/20 04:45 74 19 161/76 (104) 97 05/04/20 04:30 70 19 154/72 (99) 97 05/04/20 04:15 72 21 163/74 (103) 96 05/04/20 04:00 99.1 76 22 167/70 (102) 96 05/04/20 04:00 88 05/04/20 04:00 Mechanical Ventilator 05/04/20 04:00 45 05/04/20 03:45 87 24 162/68 (99) 96 05/04/20 03:30 76 23 157/73 (101) 96 05/04/20 03:15 78 21 159/66 (97) 96 05/04/20 03:05 78 24 40 05/04/20 03:00 64 17 144/61 (88) 97 05/04/20 02:45 60 18 136/67 (90) 98 05/04/20 02:30 62 18 131/66 (87) 98 05/04/20 02:15 63 18 120/67 (84) 97 05/04/20 02:00 64 18 136/66 (89) 97 05/04/20 01:45 70 18 125/63 (83) 97 05/04/20 01:30 74 20 133/60 (84) 97 05/04/20 01:15 70 19 146/68 (94) 98 05/04/20 01:11 76 19 40 05/04/20 01:00 66 18 148/65 (92) 97 05/04/20 00:45 69 18 145/69 (94) 97 05/04/20 00:30 67 18 131/82 (98) 97 05/04/20 00:15 66 18 144/68 (93) 97 05/04/20 00:00 Mechanical Ventilator 05/04/20 00:00 45 05/04/20 00:00 67 19 130/68 (88) 97 05/04/20 00:00 95 05/04/20 00:00 67 19 97 05/03/20 23:45 74 20 144/62 (89) 97 05/03/20 23:30 73 20 155/77 (103) 100 05/03/20 23:15 70 19 139/77 (97) 97 05/03/20 23:10 71 19 40 05/03/20 23:00 18 136/71 Mechanical Ventilator 45 05/03/20 23:00 74 19 139/69 (92) 96 05/03/20 22:45 77 20 154/66 (95) 96 05/03/20 22:30 74 19 141/67 (91) 96 05/03/20 22:15 84 22 155/73 (100) 96 05/03/20 22:00 18 153/68 Mechanical Ventilator 45 05/03/20 22:00 80 21 170/78 (108) 96 05/03/20 21:45 84 21 156/79 (104) 94 05/03/20 21:30 83 21 152/77 (102) 95 05/03/20 21:15 86 20 164/77 (106) 100 05/03/20 21:14 83 23 40 05/03/20 21:00 88 22 149/74 (99) 92 05/03/20 21:00 18 166/71 Mechanical Ventilator 40 05/03/20 20:45 91 24 162/64 (96) 93 05/03/20 20:30 86 22 155/70 (98) 95 05/03/20 20:15 68 3 132/70 (90) 95 05/03/20 20:00 40 05/03/20 20:00 68 10 143/85 (104) 95 05/03/20 20:00 Mechanical Ventilator 05/03/20 20:00 18 154/78 Mechanical Ventilator 40 05/03/20 20:00 79 05/03/20 19:45 71 5 141/67 (91) 95 05/03/20 19:30 71 4 135/72 (93) 95 05/03/20 19:18 73 18 40 05/03/20 19:00 20 142/75 Mechanical Ventilator 40 05/03/20 19:00 80 20 142/75 (97) 93 05/03/20 18:39 85 18 103/62 100 05/03/20 18:30 86 22 155/71 (99) 95 05/03/20 18:09 67 18 138/68 95 05/03/20 18:08 67 138/68 05/03/20 18:00 67 18 138/68 (91) 95 05/03/20 18:00 18 138/68 Mechanical Ventilator 40 05/03/20 17:30 79 19 144/77 (99) 91 05/03/20 17:00 66 18 125/66 (85) 97 05/03/20 17:00 18 125/66 Mechanical Ventilator 40 05/03/20 16:30 69 18 122/67 (85) 96 05/03/20 16:00 Mechanical Ventilator 05/03/20 16:00 18 123/66 Mechanical Ventilator 40 05/03/20 16:00 73 05/03/20 16:00 98.8 73 18 123/66 (85) 95 05/03/20 16:00 40 05/03/20 15:30 20 128/63 Mechanical Ventilator 40 05/03/20 15:30 82 21 128/61 (83) 94 05/03/20 15:15 23 128/61 Mechanical Ventilator 40 05/03/20 15:00 98 24 151/70 (97) 90 05/03/20 15:00 22 142/62 Mechanical Ventilator 40 05/03/20 14:45 20 151/70 Mechanical Ventilator 40 05/03/20 14:35 67 18 40 05/03/20 14:30 19 142/64 Mechanical Ventilator 40 05/03/20 14:30 71 18 139/66 (90) 97 05/03/20 14:15 18 139/66 Mechanical Ventilator 40 05/03/20 14:00 20 137/71 Mechanical Ventilator 45 05/03/20 14:00 73 20 137/71 (93) 97 05/03/20 13:37 69 19 137/71 97 05/03/20 13:30 78 21 143/69 (93) 95 05/03/20 13:07 88 18 156/68 93 05/03/20 13:00 21 143/69 Mechanical Ventilator 45 05/03/20 13:00 97 22 156/68 (97) 93 05/03/20 12:30 94 21 151/66 (94) 94 05/03/20 12:00 98.5 110 28 153/69 (97) 92 05/03/20 12:00 23 151/66 Mechanical Ventilator 45 05/03/20 12:00 109 05/03/20 12:00 Mechanical Ventilator 05/03/20 12:00 45 05/03/20 11:30 87 22 138/60 (86) 96 05/03/20 11:00 18 138/60 Mechanical Ventilator 45 05/03/20 11:00 61 18 126/61 (82) 96 05/03/20 10:45 72 18 45 Intake and Output 05/03/20 05/04/20 19:00 07:00 Intake Total 660.75 ml 513 ml Output Total 590 ml 910 ml Balance 70.75 ml -397 ml Free Water 130 ml IV Total 50.75 ml 33 ml Tube Feeding 480 ml 480 ml Output Urine Total 590 ml 910 ml Current Medications Medications (Trade) Dose Ordered Sig/Dennis Route PRN Reason Start Time Stop Time Status Last Admin Dose Admin Acetaminophen (Tylenol) 650 mg Q4H PRN GT Mild Pain (Pain Scale 1-3) 05/02/20 08:45 06/01/20 08:44 05/02/20 09:04 Acetaminophen/ Hydrocodone Bitart ([place] 5/325) 1 tab Q4H GT 05/02/20 11:00 05/09/20 10:59 05/04/20 07:13 Amlodipine Besylate (Norvasc) 2.5 mg BID GT 05/02/20 18:00 06/02/20 08:59 05/04/20 09:50 Chlorhexidine Gluconate (Marlen-Hex 2%) 1 applic DAILY@2000 TOPIC 03/30/20 20:00 06/28/20 19:59 05/03/20 20:00 Dextrose (Dextrose 50%) 25 ml Q30M PRN IV Hypoglycemia 03/29/20 20:45 06/27/20 20:44 Dextrose (Dextrose 50%) 50 ml Q30M PRN IV Hypoglycemia 03/29/20 20:45 06/27/20 20:44 Enoxaparin Sodium (Lovenox) 80 mg EVERY 12 HOURS SUBQ 04/06/20 21:00 07/05/20 20:59 05/04/20 09:50 Famotidine (Pepcid I.v.) 20 mg Q12HR PRN IVP HEART BURN 05/02/20 15:15 06/01/20 15:14 05/02/20 22:10 Fentanyl Citrate 250 ml @ 1 mls/hr Q24H IV 05/04/20 04:15 05/06/20 04:14 05/04/20 09:00 Hydralazine HCl (Apresoline) 10 mg Q4H PRN IV For High Blood Pressure 03/30/20 12:15 06/28/20 12:14 05/02/20 21:07 Insulin Aspart (NovoLOG) Q6HR SUBQ 03/30/20 00:00 06/28/20 00:00 05/01/20 18:00 Lansoprazole (Prevacid) 30 mg DAILY GT 05/02/20 09:00 06/01/20 08:59 05/04/20 09:48 Lorazepam (Ativan) 1 mg THREE TIMES A DAY ORAL 05/01/20 13:00 05/08/20 12:59 05/04/20 09:49 Methylprednisolone Sodium Succinate (Solu-MEDROL) 20 mg Q12HR IVP 04/12/20 21:00 06/20/20 20:59 05/04/20 09:48 Midazolam HCl 200 ml @ 0 mls/hr Q24H IV 05/02/20 05:00 05/09/20 04:59 05/02/20 18:21 Quetiapine Fumarate (SEROqueL) 50 mg EVERY 8 HOURS ORAL 04/29/20 12:00 06/11/20 11:59 05/04/20 06:43 Trimethoprim/ Sulfamethoxazole (Bactrim-DS) 1 tab DAILY ORAL 04/30/20 09:00 05/07/20 08:59 05/04/20 09:48 Laboratory Tests 05/04/20 03:35: White Blood Count 7.3, Red Blood Count 3.55L, Hemoglobin 10.0L, Hematocrit 32.9L , Mean Corpuscular Volume 93, Mean Corpuscular Hemoglobin 28.3, Mean Corpuscular Hemoglobin Concent 30.5L, Red Cell Distribution Width 17.0H, Platelet Count 286, Mean Platelet Volume 6.1L, Neutrophils (%) (Auto) 72.8, Lymphocytes (%) (Auto) 18.9L, Monocytes (%) (Auto) 6.9, Eosinophils (%) (Auto) 0.7, Basophils (%) (Auto) 0.7, Sodium Level 142, Potassium Level 3.8, Chloride Level 105, Carbon Dioxide Level 30, Anion Gap 8, Blood Urea Nitrogen 16, Creatinine 0.4L, Estimat Glomerular Filtration Rate > 60, Glucose Level 88, Calcium Level 8.5, Phosphorus Level 3.3, Magnesium Level 2.1, Total Bilirubin 0.3, Aspartate Amino Transf (AST/SGOT) 10L, Alanine Aminotransferase (ALT/SGPT) 30, Alkaline Phosphatase 102, C-Reactive Protein, Quantitative 2.1H, Pro-B-Type Natriuretic Peptide 615H, Total Protein 5.8L, Albumin 2.7L, Globulin 3.1, Albumin/Globulin Ratio 0.9L Height (Feet): 5 Height (Inches): 10.00 Weight (Pounds): 243 General Appearance: no apparent distress EENT: other - Trach to vent Cardiovascular: tachycardia Respiratory/Chest: decreased breath sounds Abdomen: other - PEG Rubin Cooper MD May 04, 2020 10:42
--- NOTE | 2020-05-04 11:38 | Pulmonology Progress Note ---
Subjective ROS Limited/Unobtainable: Yes Interval Events: S/p tracheostomy 04/25/20 Constitutional: Reports: other - trach and vent ; Denies: fever HEENT: Repors: no symptoms Respiratory: Reports: dry cough, shortness of breath Cardiovascular: Reports: no symptoms Gastrointestinal/Abdominal: Denies: nausea, vomiting, diarrhea Psychiatric: Reports: other - Na Skin: Denies: rash Musculoskeletal: Reports: other - NA Allergies: Coded Allergies: No Known Allergies (Unverified , 02/05/20) Objective Last 24 Hour Vital Signs Date Time Temp Pulse Resp B/P (MAP) Pulse Ox O2 Delivery O2 Flow Rate FiO2 05/04/20 11:00 77 21 137/62 (87) 96 05/04/20 10:00 66 19 137/69 (91) 99 05/04/20 09:50 68 142/67 05/04/20 09:49 68 19 142/67 99 05/04/20 09:00 82 22 108/76 (87) 95 05/04/20 09:00 19 136/58 Mechanical Ventilator 45 05/04/20 08:00 Mechanical Ventilator 05/04/20 08:00 83 05/04/20 08:00 98.7 67 19 142/65 (90) 97 05/04/20 07:56 69 16 40 05/04/20 07:30 68 18 130/64 (86) 98 05/04/20 07:19 45 05/04/20 07:15 65 18 136/63 (87) 98 05/04/20 07:00 65 18 150/71 (97) 98 05/04/20 06:45 64 18 142/69 (93) 97 05/04/20 06:30 82 22 154/73 (100) 97 05/04/20 06:15 77 19 160/75 (103) 96 05/04/20 06:00 76 21 160/83 (108) 95 05/04/20 06:00 18 136/76 Mechanical Ventilator 45 05/04/20 05:45 71 22 162/72 (102) 96 05/04/20 05:30 79 21 158/80 (106) 95 05/04/20 05:15 73 21 161/78 (105) 96 05/04/20 05:06 81 22 40 05/04/20 05:00 85 21 165/80 (108) 94 05/04/20 05:00 20 136/77 Mechanical Ventilator 30 05/04/20 04:45 74 19 161/76 (104) 97 05/04/20 04:30 70 19 154/72 (99) 97 05/04/20 04:15 72 21 163/74 (103) 96 05/04/20 04:00 99.1 76 22 167/70 (102) 96 05/04/20 04:00 88 05/04/20 04:00 Mechanical Ventilator 05/04/20 04:00 45 05/04/20 03:45 87 24 162/68 (99) 96 05/04/20 03:30 76 23 157/73 (101) 96 05/04/20 03:15 78 21 159/66 (97) 96 05/04/20 03:05 78 24 40 05/04/20 03:00 64 17 144/61 (88) 97 05/04/20 02:45 60 18 136/67 (90) 98 05/04/20 02:30 62 18 131/66 (87) 98 05/04/20 02:15 63 18 120/67 (84) 97 05/04/20 02:00 64 18 136/66 (89) 97 05/04/20 01:45 70 18 125/63 (83) 97 05/04/20 01:30 74 20 133/60 (84) 97 05/04/20 01:15 70 19 146/68 (94) 98 05/04/20 01:11 76 19 40 05/04/20 01:00 66 18 148/65 (92) 97 05/04/20 00:45 69 18 145/69 (94) 97 05/04/20 00:30 67 18 131/82 (98) 97 05/04/20 00:15 66 18 144/68 (93) 97 05/04/20 00:00 Mechanical Ventilator 05/04/20 00:00 45 05/04/20 00:00 67 19 130/68 (88) 97 05/04/20 00:00 95 05/04/20 00:00 67 19 97 05/03/20 23:45 74 20 144/62 (89) 97 05/03/20 23:30 73 20 155/77 (103) 100 05/03/20 23:15 70 19 139/77 (97) 97 05/03/20 23:10 71 19 40 05/03/20 23:00 18 136/71 Mechanical Ventilator 45 05/03/20 23:00 74 19 139/69 (92) 96 05/03/20 22:45 77 20 154/66 (95) 96 05/03/20 22:30 74 19 141/67 (91) 96 05/03/20 22:15 84 22 155/73 (100) 96 05/03/20 22:00 18 153/68 Mechanical Ventilator 45 05/03/20 22:00 80 21 170/78 (108) 96 05/03/20 21:45 84 21 156/79 (104) 94 05/03/20 21:30 83 21 152/77 (102) 95 05/03/20 21:15 86 20 164/77 (106) 100 05/03/20 21:14 83 23 40 05/03/20 21:00 88 22 149/74 (99) 92 05/03/20 21:00 18 166/71 Mechanical Ventilator 40 05/03/20 20:45 91 24 162/64 (96) 93 05/03/20 20:30 86 22 155/70 (98) 95 05/03/20 20:15 68 3 132/70 (90) 95 05/03/20 20:00 40 05/03/20 20:00 68 10 143/85 (104) 95 05/03/20 20:00 Mechanical Ventilator 05/03/20 20:00 18 154/78 Mechanical Ventilator 40 05/03/20 20:00 79 05/03/20 19:45 71 5 141/67 (91) 95 05/03/20 19:30 71 4 135/72 (93) 95 05/03/20 19:18 73 18 40 05/03/20 19:00 20 142/75 Mechanical Ventilator 40 05/03/20 19:00 80 20 142/75 (97) 93 05/03/20 18:39 85 18 103/62 100 05/03/20 18:30 86 22 155/71 (99) 95 05/03/20 18:09 67 18 138/68 95 05/03/20 18:08 67 138/68 05/03/20 18:00 67 18 138/68 (91) 95 05/03/20 18:00 18 138/68 Mechanical Ventilator 40 05/03/20 17:30 79 19 144/77 (99) 91 05/03/20 17:00 66 18 125/66 (85) 97 05/03/20 17:00 18 125/66 Mechanical Ventilator 40 05/03/20 16:30 69 18 122/67 (85) 96 05/03/20 16:00 Mechanical Ventilator 05/03/20 16:00 18 123/66 Mechanical Ventilator 40 05/03/20 16:00 73 05/03/20 16:00 98.8 73 18 123/66 (85) 95 05/03/20 16:00 40 05/03/20 15:30 20 128/63 Mechanical Ventilator 40 05/03/20 15:30 82 21 128/61 (83) 94 05/03/20 15:15 23 128/61 Mechanical Ventilator 40 05/03/20 15:00 98 24 151/70 (97) 90 05/03/20 15:00 22 142/62 Mechanical Ventilator 40 05/03/20 14:45 20 151/70 Mechanical Ventilator 40 05/03/20 14:35 67 18 40 05/03/20 14:30 19 142/64 Mechanical Ventilator 40 05/03/20 14:30 71 18 139/66 (90) 97 05/03/20 14:15 18 139/66 Mechanical Ventilator 40 05/03/20 14:00 20 137/71 Mechanical Ventilator 45 05/03/20 14:00 73 20 137/71 (93) 97 05/03/20 13:37 69 19 137/71 97 05/03/20 13:30 78 21 143/69 (93) 95 05/03/20 13:07 88 18 156/68 93 05/03/20 13:00 21 143/69 Mechanical Ventilator 45 05/03/20 13:00 97 22 156/68 (97) 93 05/03/20 12:30 94 21 151/66 (94) 94 05/03/20 12:00 98.5 110 28 153/69 (97) 92 05/03/20 12:00 23 151/66 Mechanical Ventilator 45 05/03/20 12:00 109 05/03/20 12:00 Mechanical Ventilator 05/03/20 12:00 45 Intake and Output 05/03/20 05/04/20 19:00 07:00 Intake Total 660.75 ml 513 ml Output Total 590 ml 910 ml Balance 70.75 ml -397 ml Free Water 130 ml IV Total 50.75 ml 33 ml Tube Feeding 480 ml 480 ml Output Urine Total 590 ml 910 ml General Appearance: WD/WN, no acute distress HEENT: normocephalic, atraumatic, status post trach Respiratory: chest wall non-tender Cardiovascular: normal rate, regular rhythm Abdomen: normal bowel sounds, soft, non tender, other - obese Microbiology Date/Time Source Procedure Growth Status 05/02/20 15:25 Urine,Clean Catch Urine Culture - Preliminary YEAST Resulted Laboratory Tests 05/04/20 03:35: White Blood Count 7.3, Red Blood Count 3.55L, Hemoglobin 10.0L, Hematocrit 32.9L , Mean Corpuscular Volume 93, Mean Corpuscular Hemoglobin 28.3, Mean Corpuscular Hemoglobin Concent 30.5L, Red Cell Distribution Width 17.0H, Platelet Count 286, Mean Platelet Volume 6.1L, Neutrophils (%) (Auto) 72.8, Lymphocytes (%) (Auto) 18.9L, Monocytes (%) (Auto) 6.9, Eosinophils (%) (Auto) 0.7, Basophils (%) (Auto) 0.7, Sodium Level 142, Potassium Level 3.8, Chloride Level 105, Carbon Dioxide Level 30, Anion Gap 8, Blood Urea Nitrogen 16, Creatinine 0.4L, Estimat Glomerular Filtration Rate > 60, Glucose Level 88, Calcium Level 8.5, Phosphorus Level 3.3, Magnesium Level 2.1, Total Bilirubin 0.3, Aspartate Amino Transf (AST/SGOT) 10L, Alanine Aminotransferase (ALT/SGPT) 30, Alkaline Phosphatase 102, C-Reactive Protein, Quantitative 2.1H, Pro-B-Type Natriuretic Peptide 615H, Total Protein 5.8L, Albumin 2.7L, Globulin 3.1, Albumin/Globulin Ratio 0.9L Current Medications Medications (Trade) Dose Ordered Sig/Dennis Route PRN Reason Start Time Stop Time Status Last Admin Dose Admin Acetaminophen (Tylenol) 650 mg Q4H PRN GT Mild Pain (Pain Scale 1-3) 05/02/20 08:45 06/01/20 08:44 05/02/20 09:04 Acetaminophen/ Hydrocodone Bitart ([place] 5/325) 1 tab Q4H GT 05/02/20 11:00 05/09/20 10:59 05/04/20 07:13 Amlodipine Besylate (Norvasc) 2.5 mg BID GT 05/02/20 18:00 06/02/20 08:59 05/04/20 09:50 Chlorhexidine Gluconate (Marlen-Hex 2%) 1 applic DAILY@2000 TOPIC 03/30/20 20:00 06/28/20 19:59 05/03/20 20:00 Dextrose (Dextrose 50%) 25 ml Q30M PRN IV Hypoglycemia 03/29/20 20:45 06/27/20 20:44 Dextrose (Dextrose 50%) 50 ml Q30M PRN IV Hypoglycemia 03/29/20 20:45 06/27/20 20:44 Enoxaparin Sodium (Lovenox) 80 mg EVERY 12 HOURS SUBQ 04/06/20 21:00 07/05/20 20:59 05/04/20 09:50 Famotidine (Pepcid I.v.) 20 mg Q12HR PRN IVP HEART BURN 05/02/20 15:15 06/01/20 15:14 05/02/20 22:10 Fentanyl Citrate 250 ml @ 1 mls/hr Q24H IV 05/04/20 04:15 05/06/20 04:14 05/04/20 09:00 Hydralazine HCl (Apresoline) 10 mg Q4H PRN IV For High Blood Pressure 03/30/20 12:15 06/28/20 12:14 05/02/20 21:07 Insulin Aspart (NovoLOG) Q6HR SUBQ 03/30/20 00:00 06/28/20 00:00 05/01/20 18:00 Lansoprazole (Prevacid) 30 mg DAILY GT 05/02/20 09:00 06/01/20 08:59 05/04/20 09:48 Lorazepam (Ativan) 1 mg THREE TIMES A DAY ORAL 05/01/20 13:00 05/08/20 12:59 05/04/20 09:49 Methylprednisolone Sodium Succinate (Solu-MEDROL) 20 mg Q12HR IVP 04/12/20 21:00 06/20/20 20:59 05/04/20 09:48 Midazolam HCl 200 ml @ 0 mls/hr Q24H IV 05/02/20 05:00 05/09/20 04:59 05/02/20 18:21 Quetiapine Fumarate (SEROqueL) 50 mg EVERY 8 HOURS ORAL 04/29/20 12:00 06/11/20 11:59 05/04/20 06:43 Trimethoprim/ Sulfamethoxazole (Bactrim-DS) 1 tab DAILY ORAL 04/30/20 09:00 05/07/20 08:59 05/04/20 09:48 Assessment/Plan Assessment/Plan 1.COVID-19 pneumonia. - Completed specific therapies - On solumedrol 20 Iv q 12 - will add bactrim for PJP prophylaxis 2. DVT ppx - on lovenox 3. Hypertension - no longer on meds - Not requiring pressors 4. Leukocytosis; - ID following - Off abx - Candidemia documented 03/18/20 5. Elevated LFT - positive Hep C; treated in the past with IF 6. Respiratory failure -Intubated 03/28/20; s/p tracheostomy 04/25/20 -Family aware - Prognosis guarded - Vt 750; rate 18 -On sedation; will wean off; increased Seroquel to 50 TID; added Ativan 1mg TID 7. Discussed with cardiology -No evidence for cardiac dysfunction or PE 8. AMS -back on sedation S/p PICC line Noted left upper extremity swelling. Has DVT; on full dose Lovenox Will wean down FiO2 as tolerated CXR shows bilateral interstitial changes? fibrosis? S/p PEG Off IV fluids Increase tube feedings Dc planning to subacute On seroquel 50 mg PO TID; may need to increase On Ativan and [place] Attempt to wean and dc Versed and Fentanyl The care for this patient was discussed with my supervising physician Time spent for this case was approximately 31 minutes Edilson Marinelli May 04, 2020 11:38
--- NOTE | 2020-05-04 11:45 | NUR ---
NURSE NOTES: wound care provided along side with the wound care nurse, bilateral heels and feet replaced Optifoam and elevated heels, sacral regions protected with triad cream and large Optifoam, patient remains conscious throughout the entire procedure with no distress or shortness of breath, he was coughing large thick sputum. patient remains on fentanyl drip at 3mcg/hr.
--- NOTE | 2020-05-04 13:10 | NUR ---
NURSE NOTES: fentanyl held after the patient has been repositioned and provided wound care. he is awake and able to use gestures to make needs known. tube feeding remains running at 40ml/hr.
--- NOTE | 2020-05-04 13:27 | General Progress Note ---
Subjective ROS Limited/Unobtainable: No Allergies: Coded Allergies: No Known Allergies (Unverified , 02/05/20) Objective Last 24 Hour Vital Signs Date Time Temp Pulse Resp B/P (MAP) Pulse Ox O2 Delivery O2 Flow Rate FiO2 05/04/20 13:00 83 26 152/77 (102) 97 05/04/20 12:30 104 22 205/77 (119) 90 05/04/20 12:01 97.6 81 23 181/79 (113) 93 05/04/20 12:00 Mechanical Ventilator 05/04/20 12:00 114 05/04/20 12:00 81 23 181/79 (113) 93 05/04/20 12:00 45 05/04/20 11:26 66 21 40 05/04/20 11:10 77 21 137/62 96 05/04/20 11:00 77 21 137/62 (87) 96 05/04/20 10:30 67 19 141/64 (89) 98 05/04/20 10:00 66 19 137/69 (91) 99 05/04/20 09:50 68 142/67 05/04/20 09:49 68 19 142/67 99 05/04/20 09:30 65 19 131/67 (88) 99 05/04/20 09:00 82 22 108/76 (87) 95 05/04/20 09:00 19 136/58 Mechanical Ventilator 45 05/04/20 08:00 Mechanical Ventilator 05/04/20 08:00 83 05/04/20 08:00 98.7 67 19 142/65 (90) 97 05/04/20 07:56 69 16 40 05/04/20 07:30 68 18 130/64 (86) 98 05/04/20 07:19 45 05/04/20 07:15 65 18 136/63 (87) 98 05/04/20 07:00 65 18 150/71 (97) 98 05/04/20 06:45 64 18 142/69 (93) 97 05/04/20 06:30 82 22 154/73 (100) 97 05/04/20 06:15 77 19 160/75 (103) 96 05/04/20 06:00 76 21 160/83 (108) 95 05/04/20 06:00 18 136/76 Mechanical Ventilator 45 05/04/20 05:45 71 22 162/72 (102) 96 05/04/20 05:30 79 21 158/80 (106) 95 05/04/20 05:15 73 21 161/78 (105) 96 05/04/20 05:06 81 22 40 05/04/20 05:00 85 21 165/80 (108) 94 05/04/20 05:00 20 136/77 Mechanical Ventilator 30 05/04/20 04:45 74 19 161/76 (104) 97 05/04/20 04:30 70 19 154/72 (99) 97 05/04/20 04:15 72 21 163/74 (103) 96 05/04/20 04:00 99.1 76 22 167/70 (102) 96 05/04/20 04:00 88 05/04/20 04:00 Mechanical Ventilator 05/04/20 04:00 45 05/04/20 03:45 87 24 162/68 (99) 96 05/04/20 03:30 76 23 157/73 (101) 96 05/04/20 03:15 78 21 159/66 (97) 96 05/04/20 03:05 78 24 40 05/04/20 03:00 64 17 144/61 (88) 97 05/04/20 02:45 60 18 136/67 (90) 98 05/04/20 02:30 62 18 131/66 (87) 98 05/04/20 02:15 63 18 120/67 (84) 97 05/04/20 02:00 64 18 136/66 (89) 97 05/04/20 01:45 70 18 125/63 (83) 97 05/04/20 01:30 74 20 133/60 (84) 97 05/04/20 01:15 70 19 146/68 (94) 98 05/04/20 01:11 76 19 40 05/04/20 01:00 66 18 148/65 (92) 97 05/04/20 00:45 69 18 145/69 (94) 97 05/04/20 00:30 67 18 131/82 (98) 97 05/04/20 00:15 66 18 144/68 (93) 97 05/04/20 00:00 Mechanical Ventilator 05/04/20 00:00 45 05/04/20 00:00 67 19 130/68 (88) 97 05/04/20 00:00 95 05/04/20 00:00 67 19 97 05/03/20 23:45 74 20 144/62 (89) 97 05/03/20 23:30 73 20 155/77 (103) 100 05/03/20 23:15 70 19 139/77 (97) 97 05/03/20 23:10 71 19 40 05/03/20 23:00 18 136/71 Mechanical Ventilator 45 05/03/20 23:00 74 19 139/69 (92) 96 05/03/20 22:45 77 20 154/66 (95) 96 05/03/20 22:30 74 19 141/67 (91) 96 05/03/20 22:15 84 22 155/73 (100) 96 05/03/20 22:00 18 153/68 Mechanical Ventilator 45 05/03/20 22:00 80 21 170/78 (108) 96 05/03/20 21:45 84 21 156/79 (104) 94 05/03/20 21:30 83 21 152/77 (102) 95 05/03/20 21:15 86 20 164/77 (106) 100 05/03/20 21:14 83 23 40 05/03/20 21:00 88 22 149/74 (99) 92 05/03/20 21:00 18 166/71 Mechanical Ventilator 40 05/03/20 20:45 91 24 162/64 (96) 93 05/03/20 20:30 86 22 155/70 (98) 95 05/03/20 20:15 68 3 132/70 (90) 95 05/03/20 20:00 40 05/03/20 20:00 68 10 143/85 (104) 95 05/03/20 20:00 Mechanical Ventilator 05/03/20 20:00 18 154/78 Mechanical Ventilator 40 05/03/20 20:00 79 05/03/20 19:45 71 5 141/67 (91) 95 05/03/20 19:30 71 4 135/72 (93) 95 05/03/20 19:18 73 18 40 05/03/20 19:00 20 142/75 Mechanical Ventilator 40 05/03/20 19:00 80 20 142/75 (97) 93 05/03/20 18:39 85 18 103/62 100 05/03/20 18:30 86 22 155/71 (99) 95 05/03/20 18:09 67 18 138/68 95 05/03/20 18:08 67 138/68 05/03/20 18:00 67 18 138/68 (91) 95 05/03/20 18:00 18 138/68 Mechanical Ventilator 40 05/03/20 17:30 79 19 144/77 (99) 91 05/03/20 17:00 66 18 125/66 (85) 97 05/03/20 17:00 18 125/66 Mechanical Ventilator 40 05/03/20 16:30 69 18 122/67 (85) 96 05/03/20 16:00 Mechanical Ventilator 05/03/20 16:00 18 123/66 Mechanical Ventilator 40 05/03/20 16:00 73 05/03/20 16:00 98.8 73 18 123/66 (85) 95 05/03/20 16:00 40 05/03/20 15:30 20 128/63 Mechanical Ventilator 40 05/03/20 15:30 82 21 128/61 (83) 94 05/03/20 15:15 23 128/61 Mechanical Ventilator 40 05/03/20 15:00 98 24 151/70 (97) 90 05/03/20 15:00 22 142/62 Mechanical Ventilator 40 05/03/20 14:45 20 151/70 Mechanical Ventilator 40 05/03/20 14:35 67 18 40 05/03/20 14:30 19 142/64 Mechanical Ventilator 40 05/03/20 14:30 71 18 139/66 (90) 97 05/03/20 14:15 18 139/66 Mechanical Ventilator 40 05/03/20 14:00 20 137/71 Mechanical Ventilator 45 05/03/20 14:00 73 20 137/71 (93) 97 05/03/20 13:37 69 19 137/71 97 05/03/20 13:30 78 21 143/69 (93) 95 Intake and Output 05/03/20 05/04/20 19:00 07:00 Intake Total 660.75 ml 513 ml Output Total 590 ml 910 ml Balance 70.75 ml -397 ml Free Water 130 ml IV Total 50.75 ml 33 ml Tube Feeding 480 ml 480 ml Output Urine Total 590 ml 910 ml Laboratory Tests 05/04/20 03:35: White Blood Count 7.3, Red Blood Count 3.55L, Hemoglobin 10.0L, Hematocrit 32.9L , Mean Corpuscular Volume 93, Mean Corpuscular Hemoglobin 28.3, Mean Corpuscular Hemoglobin Concent 30.5L, Red Cell Distribution Width 17.0H, Platelet Count 286, Mean Platelet Volume 6.1L, Neutrophils (%) (Auto) 72.8, Lymphocytes (%) (Auto) 18.9L, Monocytes (%) (Auto) 6.9, Eosinophils (%) (Auto) 0.7, Basophils (%) (Auto) 0.7, Sodium Level 142, Potassium Level 3.8, Chloride Level 105, Carbon Dioxide Level 30, Anion Gap 8, Blood Urea Nitrogen 16, Creatinine 0.4L, Estimat Glomerular Filtration Rate > 60, Glucose Level 88, Calcium Level 8.5, Phosphorus Level 3.3, Magnesium Level 2.1, Total Bilirubin 0.3, Aspartate Amino Transf (AST/SGOT) 10L, Alanine Aminotransferase (ALT/SGPT) 30, Alkaline Phosphatase 102, C-Reactive Protein, Quantitative 2.1H, Pro-B-Type Natriuretic Peptide 615H, Total Protein 5.8L, Albumin 2.7L, Globulin 3.1, Albumin/Globulin Ratio 0.9L Height (Feet): 5 Height (Inches): 10.00 Weight (Pounds): 243 General Appearance: no apparent distress EENT: PERRL/EOMI Neck: normal alignment Cardiovascular: normal rate Respiratory/Chest: decreased breath sounds Abdomen: hypoactive bowel sounds Extremities: non-tender Assessment/Plan Status: not improved, unchanged Assessment/Plan: hep c + but neg RNA GTF reglan 10 mg tolerating TF repeat labs fu LFTS>>>improving pepcid iv will fu aD Quintero MD May 04, 2020 13:27
--- NOTE | 2020-05-04 14:35 | NUR ---
NURSE NOTES: patient made aware the fentanyl drip has been stopped but will continue to receive pain medications, addressed the medication of Seroquel and Ativan and their uses but dislikes the sedative effects both medications give him. patient returns to resting and sleeping from the sedation effects of the medication.
--- NOTE | 2020-05-04 16:15 | NUR ---
NURSE NOTES: remains calm and relaxed without restraints, he is sleeping but on occasions has coughing episodes due to secretions on the trach, secretions are tannish and moderate, he has a strong cough reflex and expectorated secretions. tube feeding remains at 40ml/hr on Glucerna 1.5, ventilator setting remains at AC 18, TV: 750, FIo2 of 45% with peep of 5 with saturations of 97-99%. will continue to monitor.
--- NOTE | 2020-05-04 19:15 | NUR ---
NURSE HAND-OFF REPORT: Latest Vital Signs: Temperature 98.6 , Pulse 86 , B/P 145 /77 , Respiratory Rate 22 , O2 SAT 95 , Mechanical Ventilator, O2 Flow Rate . Vital Sign Comment: EKG Rhythm: Sinus Rhythm Rhythm change?: Y Notified?: N -Dr.Toluie INTERIANO Response: Message left await call Latest Hassan Fall Score: 50 Fall Risk: High Risk Safety Measures: Call light Within Reach, Bed Alarm Zone 1, Side Rails Side Rails x3, Bed position Low and Locked. Fall Precautions: Yellow Socks Yellow Gown Door Sign Patient Fall Education Report given to PRIYANKA Noonan.
--- NOTE | 2020-05-04 19:38 | Cardiology Progress Note ---
Assessment/Plan Assessment/Plan Acute covid 19 pneumonia hypoxemia infiltrate bilat bacteremia hypernatremia / hyponatremia mild abn lfts tachy post intubation fever fungemia dvt upper ext now on 60 % fio2 , have been successfully weaned form 100 % s/p trach / peg weaning sedative now afebrile now hypoxemia unlikely cardiac related cxr still showing bilateral lower lobe infiltrates as of tele reviewed sinus / sinus fahad now is on full dose anticoag due to dvt ue cr is stable d/w rn norvasc for bp more awake off iv sedative attmept weaning soon bp better on norvasc Subjective Cardiovascular: Denies: chest pain, irregular heart rate, lightheadedness Respiratory: Reports: cough, shortness of breath Gastrointestinal/Abdominal: Denies: abdominal pain Genitourinary: Denies: burning Objective Last 24 Hour Vital Signs Date Time Temp Pulse Resp B/P (MAP) Pulse Ox O2 Delivery O2 Flow Rate FiO2 05/04/20 19:23 86 22 40 05/04/20 18:46 84 149/71 05/04/20 18:45 84 13 149/71 98 05/04/20 17:00 70 21 121/74 (90) 99 05/04/20 16:00 98.6 82 22 126/63 (84) 99 05/04/20 16:00 45 05/04/20 16:00 Mechanical Ventilator 05/04/20 16:00 75 05/04/20 15:28 76 20 40 05/04/20 15:03 75 21 126/70 98 05/04/20 15:00 84 21 126/70 (88) 98 05/04/20 14:27 87 25 159/82 97 05/04/20 14:00 82 24 156/72 (100) 98 05/04/20 13:00 83 26 152/77 (102) 97 05/04/20 13:00 27 125/78 Mechanical Ventilator 45 05/04/20 12:30 104 22 205/77 (119) 90 05/04/20 12:01 97.6 81 23 181/79 (113) 93 05/04/20 12:00 Mechanical Ventilator 05/04/20 12:00 114 05/04/20 12:00 28 112/58 Mechanical Ventilator 45 05/04/20 12:00 81 23 181/79 (113) 93 05/04/20 12:00 45 05/04/20 11:26 66 21 40 05/04/20 11:10 77 21 137/62 96 05/04/20 11:00 30 123/45 Mechanical Ventilator 45 05/04/20 11:00 77 21 137/62 (87) 96 05/04/20 10:30 67 19 141/64 (89) 98 05/04/20 10:00 27 111/72 45 05/04/20 10:00 66 19 137/69 (91) 99 05/04/20 09:50 68 142/67 05/04/20 09:49 68 19 142/67 99 05/04/20 09:30 65 19 131/67 (88) 99 05/04/20 09:00 82 22 108/76 (87) 95 05/04/20 09:00 19 136/58 Mechanical Ventilator 45 05/04/20 08:00 Mechanical Ventilator 05/04/20 08:00 83 05/04/20 08:00 98.7 67 19 142/65 (90) 97 05/04/20 08:00 26 120/47 Mechanical Ventilator 45 05/04/20 07:56 69 16 40 05/04/20 07:30 68 18 130/64 (86) 98 05/04/20 07:19 45 05/04/20 07:15 65 18 136/63 (87) 98 05/04/20 07:00 65 18 150/71 (97) 98 05/04/20 06:45 64 18 142/69 (93) 97 05/04/20 06:30 82 22 154/73 (100) 97 05/04/20 06:15 77 19 160/75 (103) 96 05/04/20 06:00 76 21 160/83 (108) 95 05/04/20 06:00 18 136/76 Mechanical Ventilator 45 05/04/20 05:45 71 22 162/72 (102) 96 05/04/20 05:30 79 21 158/80 (106) 95 05/04/20 05:15 73 21 161/78 (105) 96 05/04/20 05:06 81 22 40 05/04/20 05:00 85 21 165/80 (108) 94 05/04/20 05:00 20 136/77 Mechanical Ventilator 30 05/04/20 04:45 74 19 161/76 (104) 97 05/04/20 04:30 70 19 154/72 (99) 97 05/04/20 04:15 72 21 163/74 (103) 96 05/04/20 04:00 99.1 76 22 167/70 (102) 96 05/04/20 04:00 88 05/04/20 04:00 Mechanical Ventilator 05/04/20 04:00 45 05/04/20 03:45 87 24 162/68 (99) 96 05/04/20 03:30 76 23 157/73 (101) 96 05/04/20 03:15 78 21 159/66 (97) 96 05/04/20 03:05 78 24 40 05/04/20 03:00 64 17 144/61 (88) 97 05/04/20 02:45 60 18 136/67 (90) 98 05/04/20 02:30 62 18 131/66 (87) 98 05/04/20 02:15 63 18 120/67 (84) 97 05/04/20 02:00 64 18 136/66 (89) 97 05/04/20 01:45 70 18 125/63 (83) 97 05/04/20 01:30 74 20 133/60 (84) 97 05/04/20 01:15 70 19 146/68 (94) 98 05/04/20 01:11 76 19 40 05/04/20 01:00 66 18 148/65 (92) 97 05/04/20 00:45 69 18 145/69 (94) 97 05/04/20 00:30 67 18 131/82 (98) 97 05/04/20 00:15 66 18 144/68 (93) 97 05/04/20 00:00 Mechanical Ventilator 05/04/20 00:00 45 05/04/20 00:00 67 19 130/68 (88) 97 05/04/20 00:00 95 05/04/20 00:00 67 19 97 05/03/20 23:45 74 20 144/62 (89) 97 05/03/20 23:30 73 20 155/77 (103) 100 05/03/20 23:15 70 19 139/77 (97) 97 05/03/20 23:10 71 19 40 05/03/20 23:00 18 136/71 Mechanical Ventilator 45 05/03/20 23:00 74 19 139/69 (92) 96 05/03/20 22:45 77 20 154/66 (95) 96 05/03/20 22:30 74 19 141/67 (91) 96 05/03/20 22:15 84 22 155/73 (100) 96 05/03/20 22:00 18 153/68 Mechanical Ventilator 45 05/03/20 22:00 80 21 170/78 (108) 96 05/03/20 21:45 84 21 156/79 (104) 94 05/03/20 21:30 83 21 152/77 (102) 95 05/03/20 21:15 86 20 164/77 (106) 100 05/03/20 21:14 83 23 40 05/03/20 21:00 88 22 149/74 (99) 92 05/03/20 21:00 18 166/71 Mechanical Ventilator 40 05/03/20 20:45 91 24 162/64 (96) 93 05/03/20 20:30 86 22 155/70 (98) 95 05/03/20 20:15 68 3 132/70 (90) 95 05/03/20 20:00 40 05/03/20 20:00 68 10 143/85 (104) 95 05/03/20 20:00 Mechanical Ventilator 05/03/20 20:00 18 154/78 Mechanical Ventilator 40 05/03/20 20:00 79 05/03/20 19:45 71 5 141/67 (91) 95 General Appearance: no apparent distress, alert, on vent Neck: supple Cardiovascular: normal rate Respiratory/Chest: rhonchi - bilaterally Abdomen: normal bowel sounds, non tender, soft Extremities: other - lue edema Intake and Output 05/03/20 05/04/20 19:00 07:00 Intake Total 660.75 ml 516 ml Output Total 590 ml 910 ml Balance 70.75 ml -394 ml Free Water 130 ml IV Total 50.75 ml 36 ml Tube Feeding 480 ml 480 ml Output Urine Total 590 ml 910 ml Laboratory Tests Test 05/04/20 03:35 White Blood Count 7.3 K/UL (4.8-10.8) Red Blood Count 3.55 M/UL (4.70-6.10) L Hemoglobin 10.0 G/DL (14.2-18.0) L Hematocrit 32.9 % (42.0-52.0) L Mean Corpuscular Volume 93 FL (80-99) Mean Corpuscular Hemoglobin 28.3 PG (27.0-31.0) Mean Corpuscular Hemoglobin Concent 30.5 G/DL (32.0-36.0) L Red Cell Distribution Width 17.0 % (11.6-14.8) H Platelet Count 286 K/UL (150-450) Mean Platelet Volume 6.1 FL (6.5-10.1) L Neutrophils (%) (Auto) 72.8 % (45.0-75.0) Lymphocytes (%) (Auto) 18.9 % (20.0-45.0) L Monocytes (%) (Auto) 6.9 % (1.0-10.0) Eosinophils (%) (Auto) 0.7 % (0.0-3.0) Basophils (%) (Auto) 0.7 % (0.0-2.0) Sodium Level 142 MMOL/L (136-145) Potassium Level 3.8 MMOL/L (3.5-5.1) Chloride Level 105 MMOL/L (98-107) Carbon Dioxide Level 30 MMOL/L (21-32) Anion Gap 8 mmol/L (5-15) Blood Urea Nitrogen 16 mg/dL (7-18) Creatinine 0.4 MG/DL (0.55-1.30) L Estimat Glomerular Filtration Rate > 60 mL/min (>60) Glucose Level 88 MG/DL (74-106) Calcium Level 8.5 MG/DL (8.5-10.1) Phosphorus Level 3.3 MG/DL (2.5-4.9) Magnesium Level 2.1 MG/DL (1.8-2.4) Total Bilirubin 0.3 MG/DL (0.2-1.0) Aspartate Amino Transf (AST/SGOT) 10 U/L (15-37) L Alanine Aminotransferase (ALT/SGPT) 30 U/L (12-78) Alkaline Phosphatase 102 U/L (46-116) C-Reactive Protein, Quantitative 2.1 mg/dL (0.00-0.90) H Pro-B-Type Natriuretic Peptide 615 pg/mL (0-125) H Total Protein 5.8 G/DL (6.4-8.2) L Albumin 2.7 G/DL (3.4-5.0) L Globulin 3.1 g/dL Albumin/Globulin Ratio 0.9 (1.0-2.7) L Microbiology Date/Time Source Procedure Growth Status 05/02/20 15:25 Urine,Clean Catch Urine Culture - Preliminary YEAST Resulted Objective pt seen persoanlly Manan Awan MD May 04, 2020 19:38
[2020-05-04] MEDS: Dyna-Hex 2% Top Sol 2oz TOPIC SCH (20:00)
[2020-05-05] VITALS (45 sets, daily range): BP systolic 130–176; BP diastolic 64–97
[2020-05-05] MEDS: HYDROcodone/Acetamin 5/325 tab GT SCH ×6 (03:44→23:00)
[2020-05-05] MEDS: Versed 100mg/NS 200ml 200 ML IV SCH (04:26)
[2020-05-05 05:32] LABS: BASOPHILS % (AUTO) 0.7 % (0.0-2.0); EOSINOPHILS % (AUTO) 0.4 % (0.0-3.0); HEMOGLOBIN 10.6 G/DL (14.2-18.0); LYMPHOCYTES % (AUTO) 15.2 % (20.0-45.0); MEAN CORPUSCULAR VOLUME 92 FL (80-99); MONOCYTES % (AUTO) 6.4 % (1.0-10.0); NEUTROPHILS % (AUTO) 77.3 % (45.0-75.0); PLATELET COUNT 302 K/UL (150-450); RED BLOOD COUNT 3.71 M/UL (4.70-6.10); RED CELL DISTRIBUTION WIDTH 16.6 % (11.6-14.8); WHITE BLOOD COUNT 9.1 K/UL (4.8-10.8)
[2020-05-05 05:45] LABS: ANION GAP 9 mmol/L (5-15); BLOOD UREA NITROGEN 12 mg/dL (7-18); CARBON DIOXIDE 30 MMOL/L (21-32); CHLORIDE 103 MMOL/L (98-107); CREATININE 0.5 MG/DL (0.55-1.30); POTASSIUM 3.7 MMOL/L (3.5-5.1); SODIUM 142 MMOL/L (136-145)
[2020-05-05] MEDS: NovoLOG Insulin Flexpen SUBQ SCH ×3 (06:00→18:00)
--- NOTE | 2020-05-05 07:15 | NUR ---
RESPIRATORY NOTE: PT received on AC/VC: 18, 750, 45%, +5. Alarms are on and audible. Vent circuit is secure and out of the way. Airway is secure and patent. No s/s of acute respiratory distress noted at this time. Will continue to closely monitor.
[2020-05-05] MEDS: Solu-MEDROL 40mg Inj IVP SCH (09:22)
[2020-05-05] MEDS: Bactrim-DS 1 tab ORAL SCH (09:23)
[2020-05-05] MEDS: LORazepam 1mg tab ORAL SCH ×3 (09:24→17:56)
[2020-05-05] MEDS: Enoxaparin 80mg Inj SUBQ SCH ×2 (09:24→21:00)
--- NOTE | 2020-05-05 09:45 | NUR ---
NURSE NOTES: Patient is awake and talkative, he is able to express needs using gestures or writing on paper, repositioned in bed with assistance from [employer] and applied pillows to the patient back to relieve pressure from the sacral region and bilateral heels. oral care provided with lips moistened.
--- NOTE | 2020-05-05 10:05 | NUR ---
NURSE NOTES: Dr. Rausch at the bedside and spoke with the patient, reassured him he is improving and looks great, patient lifted right hand and gave a thumb up. no orders given at this time.
--- NOTE | 2020-05-05 10:19 | Pulmonology Progress Note ---
Subjective ROS Limited/Unobtainable: No Interval Events: S/p tracheostomy 04/25/20 Constitutional: Reports: other - trach and vent ; Denies: fever HEENT: Repors: no symptoms Respiratory: Reports: dry cough, shortness of breath Cardiovascular: Reports: no symptoms Gastrointestinal/Abdominal: Denies: nausea, vomiting, diarrhea Psychiatric: Reports: other - Na Skin: Denies: rash Musculoskeletal: Reports: other - NA Allergies: Coded Allergies: No Known Allergies (Unverified , 02/05/20) Objective Last 24 Hour Vital Signs Date Time Temp Pulse Resp B/P (MAP) Pulse Ox O2 Delivery O2 Flow Rate FiO2 05/05/20 10:10 109 25 158/85 91 05/05/20 09:24 101 22 151/74 95 05/05/20 09:23 101 151/74 05/05/20 07:15 82 24 45 05/05/20 05:45 94 23 171/88 (115) 94 05/05/20 05:30 99 26 167/96 (119) 94 05/05/20 05:15 98 22 176/87 (116) 86 05/05/20 05:15 82 24 40 05/05/20 05:00 93 22 158/76 (103) 91 05/05/20 04:45 97 26 166/97 (120) 89 05/05/20 04:30 95 21 165/87 (113) 90 05/05/20 04:15 95 25 148/90 (109) 91 05/05/20 04:00 Mechanical Ventilator 05/05/20 04:00 94 26 166/77 (106) 91 05/05/20 04:00 45 05/05/20 04:00 94 26 166/77 (106) 91 05/05/20 04:00 78 05/05/20 03:45 91 25 147/87 (107) 88 05/05/20 03:30 83 25 147/80 (102) 99 05/05/20 03:30 83 25 147/80 (102) 99 05/05/20 03:27 81 25 40 05/05/20 03:15 100 19 155/85 (108) 91 05/05/20 03:00 98 23 167/76 (106) 88 05/05/20 02:45 88 23 150/70 (96) 92 3/5/21 02:30 92 22 161/71 (101) 93 05/05/20 02:15 96 22 172/75 (107) 91 05/05/20 02:00 93 22 154/78 (103) 95 05/05/20 01:45 98 26 174/88 (116) 91 05/05/20 01:30 93 21 148/83 (104) 97 05/05/20 01:25 79 22 40 05/05/20 01:15 92 24 160/90 (113) 92 05/05/20 01:00 92 25 157/69 (98) 93 05/05/20 00:45 91 25 167/84 (111) 92 05/05/20 00:30 81 22 135/75 (95) 95 05/05/20 00:15 82 22 135/73 (93) 96 05/05/20 00:00 Mechanical Ventilator 05/05/20 00:00 89 05/05/20 00:00 100 24 173/95 (121) 93 05/05/20 00:00 45 05/05/20 00:00 100 24 173/95 (121) 93 05/04/20 23:45 102 26 161/85 (110) 89 05/04/20 23:30 82 25 137/72 (93) 96 05/04/20 23:20 89 24 40 05/04/20 23:15 107 27 169/83 (111) 90 05/04/20 23:00 104 25 145/74 (97) 93 05/04/20 22:30 83 23 130/66 (87) 95 05/04/20 22:15 105 25 151/83 (105) 95 05/04/20 22:00 116 25 198/82 (120) 86 05/04/20 21:45 95 22 175/76 (109) 97 05/04/20 21:30 86 21 159/78 (105) 97 05/04/20 21:23 75 20 40 05/04/20 21:15 87 24 160/83 (108) 98 05/04/20 21:00 91 20 170/79 (109) 98 05/04/20 20:45 82 25 156/76 (102) 98 05/04/20 20:30 77 24 134/84 (101) 99 05/04/20 20:15 84 25 161/86 (111) 99 05/04/20 20:00 Mechanical Ventilator 05/04/20 20:00 90 23 159/94 (115) 99 05/04/20 20:00 82 05/04/20 20:00 45 05/04/20 19:45 85 26 154/88 (110) 100 05/04/20 19:30 78 25 159/77 (104) 100 05/04/20 19:23 86 22 40 05/04/20 19:15 90 18 166/78 100 05/04/20 19:00 94 21 145/77 (99) 95 05/04/20 18:46 84 149/71 05/04/20 18:45 84 13 149/71 98 05/04/20 18:00 72 13 135/62 (86) 99 05/04/20 17:00 70 21 121/74 (90) 99 05/04/20 16:00 98.6 82 22 126/63 (84) 99 05/04/20 16:00 45 05/04/20 16:00 Mechanical Ventilator 05/04/20 16:00 75 05/04/20 15:28 76 20 40 05/04/20 15:03 75 21 126/70 98 05/04/20 15:00 84 21 126/70 (88) 98 05/04/20 14:27 87 25 159/82 97 05/04/20 14:00 82 24 156/72 (100) 98 05/04/20 13:00 83 26 152/77 (102) 97 05/04/20 13:00 27 125/78 Mechanical Ventilator 45 05/04/20 12:30 104 22 205/77 (119) 90 05/04/20 12:01 97.6 81 23 181/79 (113) 93 05/04/20 12:00 Mechanical Ventilator 05/04/20 12:00 114 05/04/20 12:00 28 112/58 Mechanical Ventilator 45 05/04/20 12:00 81 23 181/79 (113) 93 05/04/20 12:00 45 05/04/20 11:26 66 21 40 05/04/20 11:10 77 21 137/62 96 05/04/20 11:00 30 123/45 Mechanical Ventilator 45 05/04/20 11:00 77 21 137/62 (87) 96 05/04/20 10:30 67 19 141/64 (89) 98 Intake and Output 05/04/20 05/05/20 19:00 07:00 Intake Total 723.5 ml 440 ml Output Total 1020 ml 1750 ml Balance -296.5 ml -1310 ml Free Water 140 ml IV Total 43.5 ml Tube Feeding 480 ml 440 ml Other 60 ml Output Urine Total 925 ml 1750 ml Stool Total 95 ml General Appearance: WD/WN, no acute distress HEENT: normocephalic, atraumatic, status post trach Respiratory: chest wall non-tender Cardiovascular: normal rate, regular rhythm Abdomen: normal bowel sounds, soft, non tender, other - obese Microbiology Date/Time Source Procedure Growth Status 05/02/20 15:25 Urine,Clean Catch Urine Culture - Preliminary YEAST Resulted Laboratory Tests 05/05/20 03:35: White Blood Count 9.1, Red Blood Count 3.71L, Hemoglobin 10.6L, Hematocrit 34.0L , Mean Corpuscular Volume 92, Mean Corpuscular Hemoglobin 28.7, Mean Corpuscular Hemoglobin Concent 31.3L, Red Cell Distribution Width 16.6H, Platelet Count 302, Mean Platelet Volume 5.8L, Neutrophils (%) (Auto) 77.3H, Lymphocytes (%) (Auto) 15.2L, Monocytes (%) (Auto) 6.4, Eosinophils (%) (Auto) 0.4, Basophils (%) (Auto) 0.7, Sodium Level 142, Potassium Level 3.7, Chloride Level 103, Carbon Dioxide Level 30, Anion Gap 9, Blood Urea Nitrogen 12, Creatinine 0.5L, Estimat Glomerular Filtration Rate > 60, Glucose Level 80, Calcium Level 9.0 Current Medications Medications (Trade) Dose Ordered Sig/Dennis Route PRN Reason Start Time Stop Time Status Last Admin Dose Admin Acetaminophen (Tylenol) 650 mg Q4H PRN GT Mild Pain (Pain Scale 1-3) 05/02/20 08:45 06/01/20 08:44 05/02/20 09:04 Acetaminophen/ Hydrocodone Bitart ([place] 5/325) 1 tab Q4H GT 05/02/20 11:00 05/09/20 10:59 05/05/20 07:45 Amlodipine Besylate (Norvasc) 2.5 mg BID GT 05/02/20 18:00 06/02/20 08:59 05/05/20 09:23 Chlorhexidine Gluconate (Marlen-Hex 2%) 1 applic DAILY@2000 TOPIC 03/30/20 20:00 06/28/20 19:59 05/04/20 20:00 Dextrose (Dextrose 50%) 25 ml Q30M PRN IV Hypoglycemia 03/29/20 20:45 06/27/20 20:44 Dextrose (Dextrose 50%) 50 ml Q30M PRN IV Hypoglycemia 03/29/20 20:45 06/27/20 20:44 Enoxaparin Sodium (Lovenox) 80 mg EVERY 12 HOURS SUBQ 04/06/20 21:00 07/05/20 20:59 05/05/20 09:24 Famotidine (Pepcid I.v.) 20 mg Q12HR PRN IVP HEART BURN 05/02/20 15:15 06/01/20 15:14 05/02/20 22:10 Fentanyl Citrate 250 ml @ 1 mls/hr Q24H IV 05/04/20 04:15 05/06/20 04:14 05/04/20 09:00 Hydralazine HCl (Apresoline) 10 mg Q4H PRN IV For High Blood Pressure 03/30/20 12:15 06/28/20 12:14 05/02/20 21:07 Insulin Aspart (NovoLOG) Q6HR SUBQ 03/30/20 00:00 06/28/20 00:00 05/01/20 18:00 Lansoprazole (Prevacid) 30 mg DAILY GT 05/02/20 09:00 06/01/20 08:59 05/05/20 09:22 Lorazepam (Ativan) 1 mg THREE TIMES A DAY ORAL 05/01/20 13:00 05/08/20 12:59 05/05/20 09:24 Methylprednisolone Sodium Succinate (Solu-MEDROL) 20 mg Q12HR IVP 04/12/20 21:00 06/20/20 20:59 05/05/20 09:22 Midazolam HCl 200 ml @ 0 mls/hr Q24H IV 05/02/20 05:00 05/09/20 04:59 05/02/20 18:21 Quetiapine Fumarate (SEROqueL) 50 mg EVERY 8 HOURS ORAL 04/29/20 12:00 06/11/20 11:59 05/05/20 06:08 Trimethoprim/ Sulfamethoxazole (Bactrim-DS) 1 tab DAILY ORAL 04/30/20 09:00 05/07/20 08:59 05/05/20 09:23 Assessment/Plan Assessment/Plan 1.COVID-19 pneumonia. - Completed specific therapies - On solumedrol 20 Iv q 12 -> will taper; Prednisone 10 mg QD - will add bactrim for PJP prophylaxis 2. DVT ppx - on lovenox 3. Hypertension - no longer on meds - Not requiring pressors 4. Leukocytosis; - ID following - Off abx - Candidemia documented 03/18/20 5. Elevated LFT - positive Hep C; treated in the past with IF 6. Respiratory failure -Intubated 03/28/20; s/p tracheostomy 04/25/20 -Family aware - Prognosis guarded - Vt 750; rate 18 -now weaned off sedation as of 05/04; increased Seroquel to 50 TID; added Ativan 1mg TID 7. Discussed with cardiology -No evidence for cardiac dysfunction or PE 8. AMS - more alert - now off sedation as of 05/04 S/p PICC line Noted left upper extremity swelling. Has DVT; on full dose Lovenox Will wean down FiO2 as tolerated; now FiO2 45% CXR shows bilateral interstitial changes? fibrosis? S/p PEG Off IV fluids Increase tube feedings Dc planning to subacute On seroquel 50 mg PO TID; may need to increase On Ativan and [place] Attempt to wean and dc Versed and Fentanyl; now off sedation The care for this patient was discussed with my supervising physician Time spent for this case was approximately 31 minutes Edilson Marinelli May 05, 2020 10:19
--- NOTE | 2020-05-05 11:04 | NUR ---
NURSE NOTES: Dr. Mata ordered to have Solumedrol changed to prednisolone, 10mg, G-tube, daily. he remains off of fentanyl and versed since 1300 on 05/04/20.
--- NOTE | 2020-05-05 11:04 | Surgery Progress Note ---
Surgery Progress Note Subjective Procedure Performed tracheostomy Additional Comments improving awake alert seems to remember who i am thumbs up Objective Last 24 Hour Vital Signs Date Time Temp Pulse Resp B/P (MAP) Pulse Ox O2 Delivery O2 Flow Rate FiO2 05/05/20 10:10 109 25 158/85 91 05/05/20 10:00 105 25 158/85 (109) 94 05/05/20 09:30 96 23 140/79 (99) 96 05/05/20 09:24 101 22 151/74 95 05/05/20 09:23 101 151/74 05/05/20 09:00 94 22 134/72 (92) 96 05/05/20 08:30 98 27 148/72 (97) 95 05/05/20 08:00 45 05/05/20 08:00 99.9 96 23 164/87 (112) 96 05/05/20 08:00 Mechanical Ventilator 05/05/20 07:30 95 22 151/79 (103) 94 05/05/20 07:15 82 24 45 05/05/20 05:45 94 23 171/88 (115) 94 05/05/20 05:30 99 26 167/96 (119) 94 05/05/20 05:15 98 22 176/87 (116) 86 05/05/20 05:15 82 24 40 05/05/20 05:00 93 22 158/76 (103) 91 05/05/20 04:45 97 26 166/97 (120) 89 05/05/20 04:30 95 21 165/87 (113) 90 05/05/20 04:15 95 25 148/90 (109) 91 05/05/20 04:00 Mechanical Ventilator 05/05/20 04:00 94 26 166/77 (106) 91 05/05/20 04:00 45 05/05/20 04:00 94 26 166/77 (106) 91 05/05/20 04:00 78 05/05/20 03:45 91 25 147/87 (107) 88 05/05/20 03:30 83 25 147/80 (102) 99 05/05/20 03:30 83 25 147/80 (102) 99 05/05/20 03:27 81 25 40 05/05/20 03:15 100 19 155/85 (108) 91 05/05/20 03:00 98 23 167/76 (106) 88 05/05/20 02:45 88 23 150/70 (96) 92 05/05/20 02:30 92 22 161/71 (101) 93 05/05/20 02:15 96 22 172/75 (107) 91 05/05/20 02:00 93 22 154/78 (103) 95 05/05/20 01:45 98 26 174/88 (116) 91 05/05/20 01:30 93 21 148/83 (104) 97 05/05/20 01:25 79 22 40 05/05/20 01:15 92 24 160/90 (113) 92 05/05/20 01:00 92 25 157/69 (98) 93 05/05/20 00:45 91 25 167/84 (111) 92 05/05/20 00:30 81 22 135/75 (95) 95 05/05/20 00:15 82 22 135/73 (93) 96 05/05/20 00:00 Mechanical Ventilator 05/05/20 00:00 89 05/05/20 00:00 100 24 173/95 (121) 93 05/05/20 00:00 45 05/05/20 00:00 100 24 173/95 (121) 93 05/04/20 23:45 102 26 161/85 (110) 89 05/04/20 23:30 82 25 137/72 (93) 96 05/04/20 23:20 89 24 40 05/04/20 23:15 107 27 169/83 (111) 90 05/04/20 23:00 104 25 145/74 (97) 93 05/04/20 22:30 83 23 130/66 (87) 95 05/04/20 22:15 105 25 151/83 (105) 95 05/04/20 22:00 116 25 198/82 (120) 86 05/04/20 21:45 95 22 175/76 (109) 97 05/04/20 21:30 86 21 159/78 (105) 97 05/04/20 21:23 75 20 40 05/04/20 21:15 87 24 160/83 (108) 98 05/04/20 21:00 91 20 170/79 (109) 98 05/04/20 20:45 82 25 156/76 (102) 98 05/04/20 20:30 77 24 134/84 (101) 99 05/04/20 20:15 84 25 161/86 (111) 99 05/04/20 20:00 Mechanical Ventilator 05/04/20 20:00 90 23 159/94 (115) 99 05/04/20 20:00 82 05/04/20 20:00 45 05/04/20 19:45 85 26 154/88 (110) 100 05/04/20 19:30 78 25 159/77 (104) 100 05/04/20 19:23 86 22 40 05/04/20 19:15 90 18 166/78 100 05/04/20 19:00 94 21 145/77 (99) 95 05/04/20 18:46 84 149/71 05/04/20 18:45 84 13 149/71 98 05/04/20 18:00 72 13 135/62 (86) 99 05/04/20 17:00 70 21 121/74 (90) 99 05/04/20 16:00 98.6 82 22 126/63 (84) 99 05/04/20 16:00 45 05/04/20 16:00 Mechanical Ventilator 05/04/20 16:00 75 05/04/20 15:28 76 20 40 05/04/20 15:03 75 21 126/70 98 05/04/20 15:00 84 21 126/70 (88) 98 05/04/20 14:27 87 25 159/82 97 05/04/20 14:00 82 24 156/72 (100) 98 05/04/20 13:00 83 26 152/77 (102) 97 05/04/20 13:00 27 125/78 Mechanical Ventilator 45 05/04/20 12:30 104 22 205/77 (119) 90 05/04/20 12:01 97.6 81 23 181/79 (113) 93 05/04/20 12:00 Mechanical Ventilator 05/04/20 12:00 114 05/04/20 12:00 28 112/58 Mechanical Ventilator 45 05/04/20 12:00 81 23 181/79 (113) 93 05/04/20 12:00 45 05/04/20 11:26 66 21 40 05/04/20 11:10 77 21 137/62 96 I&O Intake and Output 05/04/20 05/05/20 19:00 07:00 Intake Total 723.5 ml 440 ml Output Total 1020 ml 1750 ml Balance -296.5 ml -1310 ml Free Water 140 ml IV Total 43.5 ml Tube Feeding 480 ml 440 ml Other 60 ml Output Urine Total 925 ml 1750 ml Stool Total 95 ml Dressing: dry Wound: clean Cardiovascular: RSR Respiratory: clear, decreased breath sounds Abdomen: soft, flat, non-tender, present bowel sounds, non-distended Extremities: no edema, no tenderness, no cyanosis Laboratory Tests Test 05/05/20 03:35 White Blood Count 9.1 K/UL (4.8-10.8) Red Blood Count 3.71 M/UL (4.70-6.10) L Hemoglobin 10.6 G/DL (14.2-18.0) L Hematocrit 34.0 % (42.0-52.0) L Mean Corpuscular Volume 92 FL (80-99) Mean Corpuscular Hemoglobin 28.7 PG (27.0-31.0) Mean Corpuscular Hemoglobin Concent 31.3 G/DL (32.0-36.0) L Red Cell Distribution Width 16.6 % (11.6-14.8) H Platelet Count 302 K/UL (150-450) Mean Platelet Volume 5.8 FL (6.5-10.1) L Neutrophils (%) (Auto) 77.3 % (45.0-75.0) H Lymphocytes (%) (Auto) 15.2 % (20.0-45.0) L Monocytes (%) (Auto) 6.4 % (1.0-10.0) Eosinophils (%) (Auto) 0.4 % (0.0-3.0) Basophils (%) (Auto) 0.7 % (0.0-2.0) Sodium Level 142 MMOL/L (136-145) Potassium Level 3.7 MMOL/L (3.5-5.1) Chloride Level 103 MMOL/L (98-107) Carbon Dioxide Level 30 MMOL/L (21-32) Anion Gap 9 mmol/L (5-15) Blood Urea Nitrogen 12 mg/dL (7-18) Creatinine 0.5 MG/DL (0.55-1.30) L Estimat Glomerular Filtration Rate > 60 mL/min (>60) Glucose Level 80 MG/DL (74-106) Calcium Level 9.0 MG/DL (8.5-10.1) Plan Problems: (1) Pneumonia (2) Staphylococcus aureus bacteremia (3) COVID-19 virus infection (4) Chest pain (5) Hypertension (6) Dehydration (7) Electrolyte imbalance (8) DMII (diabetes mellitus, type 2) (9) Protein malnutrition (10) Respiratory insufficiency Assessment & Plan: 64-year-old male with respiratory insufficiency intubated in an intensive care unit. Patient has been unable to safely wean off ventilatory support. Surgery called to evaluate for tracheostomy. After careful evaluation patient is a candidate for tracheostomy. In the meantime will obtain consent. If consent obtained will proceed with scheduling. Thank you for your participation's care will follow recommendations improving trach okay agitated weaning sedation no n/v cont weaning transition to oral meds via g tube get off drips Booker Rausch May 05, 2020 11:04
--- NOTE | 2020-05-05 12:53 | NUR ---
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 * Inadequate oral intake R/T clinical and respiratory status as evidenced by COVID-19 ++, on continuous BIPAP, prolonged meal refusals, pt is now on TPN, pt orally intubated (03/28), s/p trach placement (04/26), and s/p PEG placement (04/27), now on GT feeds. * Decreased sodium and fat needs r/t HTN and obesity as evidenced by pt w/ cardiac history, elev BP (159/98-> now improved, on BP meds and diuretics), BMI >30, obese per guidelines. (INACTIVE) CURRENT TF:Glucerna 1.5 goal of 50 + Prosource BID ENTERAL NUTRITION RECOMMENDATIONS: Glucerna 1.5 @ 50ml/hr x 24 hrs + Prosource 1pkt BID to provide 1200ml, 1800kcal, 99g +22g prot (121g total prot), 926ml free water * Maintain currnent TF order * Con't Prosource 1pkt BID (additional 22g prot) to better meet est prot needs. ADDITIONAL RECOMMENDATIONS: 1) Maintain calibrated bedscale wts 2) Monitor BGs closely w/ Solumedrol (POC glu wnl at this time) 3) Monitor lytes, replete as needed 4) Monitor TF tolerance: PEG placed 04/28, cont to increase TF to goal as tolerated 5) Wound healing: Add Michael BID (mix w/ 2-4oz of water) TF @ goal provides 100% RDI, add Vit C 500mg QD, ZnSO4 220mg [id number]
--- NOTE | 2020-05-05 12:56 | Nephrology Progress Note ---
Assessment/Plan Problem List: (1) Dehydration (2) Electrolyte imbalance (3) COVID-19 virus infection (4) Pneumonia (5) DMII (diabetes mellitus, type 2) (6) Protein malnutrition Assessment Azotemia, hypernatremia Hypoalbuminemia Staff Otilai bacteremia COVID-19 isolation, pneumonia, bilateral infiltrate Hypertension Diabetes mellitus History of smoking Plan May 05: Labs reviewed. Renal parameters stable. Patient is due to be trans ferred to SCU. Continue per consultants. Medication list reviewed. May 04: Labs reviewed. Renal parameters stable. Overall status unchanged. Remains full code. Fed through GT tube. Trach to vent. FiO2 45%. Continue per consultants. May 03: No CHEM panel drawn today. Patient clinically stable. Has trach to vent and PEG. Will check lab tomorrow. May 02: Labs reviewed. Status quo. Patient is trached and vented. Also has PEG. Is full code. Stable from renal standpoint of view. May 01: Labs reviewed. Status quo. Patient has trach connected to vent. Has PEG. He is full code. FiO2 50%. April 30: Status quo. Labs reviewed. Renal parameters stable. Medication list reviewed. April 29: Status quo. Received PEG yesterday. Has trach connected to vent. FiO2 40%. Labs reviewed. Medication list reviewed. Continue same April 28: Status quo. Labs reviewed. Renal parameters stable. Patient n.p.o. due for PEG insertion. IV changed to D5 normal saline. Continue per consultants. April 27: Status quo. Labs reviewed. Medication list reviewed. Stable from renal standpoint of view. Abnormal electrolytes addressed. April 26: Patient is now trached and connected to vent. FiO2 70%. Labs reviewed. Renal parameters stable. Medication list reviewed. Continue per consultants. April 25: Status quo. Full code. FiO2 55%. No labs drawn today. Continue to monitor electrolytes and renal parameters. Continue per consultants. April 24: Status quo. Full code. Intubated on ventilator. FiO2 65%. Labs reviewed. Renal parameters and electrolytes stable. April 23: Status unchanged. Full code. Intubated on ventilator. FiO2 75%. Labs reviewed. Renal parameters stable. Continue per consultants. April 22: Labs reviewed. Patient remains intubated on ventilator and full code. FiO2 90%. Day 77 hospitalization. Not much to add from renal standpoint of view April 21: No CHEM panel drawn today. FiO2 60%. Patient full code. Continue per consultants. April 20: Labs reviewed. Renal parameters stable. Patient remains full code. Intubated on ventilator with FiO2 currently at 70%. Continue per consultants. April 19: No labs drawn today. Remains full code on FiO2 of 100%. Continue per consultants. April 18: Status quo. Labs reviewed. Renal parameters stable. April 17: Status quo. Intubated on ventilator. Full code. Labs reviewed. Electrolytes and renal parameters stable. Continue per consultants. April 16: Girlfriend in the room. Patient awake. Intubated. Full code. Labs reviewed. Abnormal electrolyte addressed. Continue per consultants. April 15: Labs reviewed. Electrolytes and renal parameters stable. Patient full code. Continues to be intubated on ventilator. April 14: Status quo. Labs reviewed. Remains intubated on ventilator. Full code. Continue per consultants. April 13: Status quo. Labs reviewed. Renal parameters electrolytes stable. Continue per current treatment plan. April 12: On higher FiO2. Will resume Lasix daily. Continue to monitor electrolytes and renal parameters. Per consultants. April 11: FiO2 went up to 85%. Renal parameters and electrolytes reasonably well-maintained. Will monitor serum potassium. Will give IV Lasix. April 10: Status quo. Labs reviewed. Remains intubated on ventilator with FiO2 of 65%. Remains full code. Stable from renal standpoint to view. Repeat vitamin D level on April 08 pending April 09: Status quo. Labs reviewed. Stable from renal standpoint of view. Continue per consultants. April 08: Discussed with RN. Labs reviewed. Clinically improving. Requires lower PEEP. Continue per pulmonary. Continue to monitor renal parameters. April 07: Remains full code and on ventilator. Labs reviewed. Renal parameters and electrolytes stable. Continue per consultants. Blood pressure marginally improved. April 06: Full code. On ventilator. Blood pressure 80-90 systolic. IV Lasix discontinued. Free water through tube feeding ordered. Continue to monitor electrolytes and serum sodium. Down on fentanyl as possible. Discussed with PRIYANKA Brown. Clonidine patch discontinued. April 05: Status quo. Remains full code. Remains intubated. Labs reviewed. Renal parameters stable. Serum sodium 150 unchanged. Continue per consultants. April 04: Remains intubated and on ventilator. Remains full code. Labs reviewed. Serum sodium 150 unchanged. Renal parameters stable. Continue per ID and pulmonary. April 03: Intubated. On ventilator. Full code. Labs reviewed. Serum sodium 150 unchanged. Continue to monitor renal parameters. Continue per pulmonary and ID. April 02: Full code. On ventilator. Discussed with RN. Serum sodium slightly higher. Will cut down on IV Lasix. Continue per consultants. Continue to monitor renal parameters and electrolytes. April 01: Full code. Remains on ventilator. Labs reviewed. Stable from renal standpoint of view. Continue per consultants. March 31: Full code . Remains intubated on ventilator. Labs reviewed. Patient appears toxic. Discussed with RN. Maintenance IV discontinued. Medication list reviewed. Blood pressure medication stopped due to low blood pressure. Levemir insulin stopped. Continue monitor blood sugar and sliding scale insulin. March 30: Full code. On ventilator. Labs reviewed. Clonidine patch dose increased. Lasix increased. 3% saline 1 time ordered. Continue to monitor electrolytes and renal parameters. March 29: Remains full code. On mechanical ventilation. On tube feeding. Will DC TPN. Will start on maintenance IV fluid. Continue to monitor renal parameters. March 28: On BiPAP. Full code. On TPN. Labs reviewed. Discussed with pharmacy. Continue as is. Watch serum potassium. March 27: Remains on BiPAP. No chemistry panel done today. Full code. On TPN. Will check lab tomorrow. March 26: Remains on BiPAP. Remains on TPN. Labs reviewed. Electrolytes and chemistries within normal limits. Continue as is. March 25: Remains on TPN. Labs reviewed. Discussed with pharmacy. Change IV Protonix to p.o. Continue 3% saline infusion with Lasix. Patient full code. March 24: Continue to be on TPN. Labs are reviewed. Aim to collect electrolytes. Discussed with pharmacy. Continue current consultants. March 23: Continues to be on TPN. Labs reviewed. Electrolytes and chemistries all acceptable. Discussed with pharmacy. Continue current manag ement. March 22: On TPN. Labs reviewed. Low sodium noted. 3% saline to be continued. Continue to monitor electrolytes. Discussed with pharmacy. March 21: On TPN. Labs reviewed. Continue 3% saline and Lasix for mild hyponatremia. Continue TPN as these. Discussed with pharmacy. March 20: Remains on TPN. Labs reviewed. Serum sodium higher on IV Lasix and 3% saline infusion. Continue TPN as is. Continue to monitor renal parameters and electrolytes. Discussed with Dr. Mata March 19: Remains on TPN. Labs reviewed. Serum sodium 128. Will give 3% saline with IV Lasix. Continue to monitor electrolytes. No change in TPN composition. Discussed with pharmacy. March 18: Remains on TPN. Labs reviewed. Discussed with pharmacist. Will give 3 doses of IV Lasix 20 mg every 8 hours. Continue to monitor serum sodium electrolytes uric acid. White blood cells down. Continue per consultants. March 17: On TPN. Labs reviewed. Discussed with pharmacist. Sodium content increase. Continue to monitor CMP. Patient continues to have leukocytosis. March 16: On TPN. Labs reviewed. Discussed with pharmacist. Appropriate changes made. Continue to monitor electrolytes. March 15: Remains on TPN. Labs reviewed. Discussed with pharmacist. Ki vieira per current management. March 14: Remains on TPN. Labs reviewed, stable. Vitamin D level low, replacement ordered. Continue to monitor electrolytes and renal parameters. March 13: Patient remains on TPN. Discussed with pharmacist. TPN's sodium content adjusted. Labs reviewed. Continue to monitor electrolytes. Blood pressure remains stable. Continue per consultants. March 12: Patient on TPN. Labs reviewed. CPK remains elevated. Abnormal electrolytes and high blood sugar discussed with pharmacist and TPN adjusted. Continue to monitor labs. Oral Protonix added. Ibuprofen discontinued. Can continue to monitor electrolytes and chemistries. Levemir for high blood sugar added. March 11: Patient on TPN. Labs as of 11:15 AM is still pending. Continue per current treatment plan. Will check labs and adjust TPN as needed. Continue per consultants. March 10: Patient on TPN. Labs reviewed. Electrolytes overall stable. CPK is elevated. Will monitor electrolyte, CPK level, lipid panel. Continue per consultants. Discussed with pharmacist. Discussed with RN. Nutritional evaluation noted. Previously: D5W 100 cc an hour Monitor electrolytes renal parameters TPN and Intralipid ordered Will follow Continue per consultants Dietary consult requested Subjective ROS Limited/Unobtainable: Yes Objective Objective Last 24 Hour Vital Signs Date Time Temp Pulse Resp B/P (MAP) Pulse Ox O2 Delivery O2 Flow Rate FiO2 05/05/20 12:37 97 26 152/82 96 05/05/20 12:05 113 24 153/93 93 05/05/20 12:00 Mechanical Ventilator 05/05/20 12:00 99.9 112 21 153/93 (113) 94 05/05/20 12:00 45 05/05/20 11:00 111 27 169/85 (113) 94 05/05/20 10:10 109 25 158/85 91 05/05/20 10:00 105 25 158/85 (109) 94 05/05/20 09:30 96 23 140/79 (99) 96 05/05/20 09:24 101 22 151/74 95 05/05/20 09:23 101 151/74 05/05/20 09:00 94 22 134/72 (92) 96 05/05/20 08:30 98 27 148/72 (97) 95 05/05/20 08:00 45 05/05/20 08:00 99.9 96 23 164/87 (112) 96 05/05/20 08:00 Mechanical Ventilator 05/05/20 07:30 95 22 151/79 (103) 94 05/05/20 07:15 82 24 45 05/05/20 05:45 94 23 171/88 (115) 94 05/05/20 05:30 99 26 167/96 (119) 94 05/05/20 05:15 98 22 176/87 (116) 86 05/05/20 05:15 82 24 40 05/05/20 05:00 93 22 158/76 (103) 91 05/05/20 04:45 97 26 166/97 (120) 89 05/05/20 04:30 95 21 165/87 (113) 90 05/05/20 04:15 95 25 148/90 (109) 91 05/05/20 04:00 Mechanical Ventilator 05/05/20 04:00 94 26 166/77 (106) 91 05/05/20 04:00 45 05/05/20 04:00 94 26 166/77 (106) 91 05/05/20 04:00 78 05/05/20 03:45 91 25 147/87 (107) 88 05/05/20 03:30 83 25 147/80 (102) 99 05/05/20 03:30 83 25 147/80 (102) 99 05/05/20 03:27 81 25 40 05/05/20 03:15 100 19 155/85 (108) 91 05/05/20 03:00 98 23 167/76 (106) 88 05/05/20 02:45 88 23 150/70 (96) 92 05/05/20 02:30 92 22 161/71 (101) 93 05/05/20 02:15 96 22 172/75 (107) 91 05/05/20 02:00 93 22 154/78 (103) 95 05/05/20 01:45 98 26 174/88 (116) 91 05/05/20 01:30 93 21 148/83 (104) 97 05/05/20 01:25 79 22 40 05/05/20 01:15 92 24 160/90 (113) 92 05/05/20 01:00 92 25 157/69 (98) 93 05/05/20 00:45 91 25 167/84 (111) 92 05/05/20 00:30 81 22 135/75 (95) 95 05/05/20 00:15 82 22 135/73 (93) 96 05/05/20 00:00 Mechanical Ventilator 05/05/20 00:00 89 05/05/20 00:00 100 24 173/95 (121) 93 05/05/20 00:00 45 05/05/20 00:00 100 24 173/95 (121) 93 05/04/20 23:45 102 26 161/85 (110) 89 05/04/20 23:30 82 25 137/72 (93) 96 05/04/20 23:20 89 24 40 05/04/20 23:15 107 27 169/83 (111) 90 05/04/20 23:00 104 25 145/74 (97) 93 05/04/20 22:30 83 23 130/66 (87) 95 05/04/20 22:15 105 25 151/83 (105) 95 05/04/20 22:00 116 25 198/82 (120) 86 05/04/20 21:45 95 22 175/76 (109) 97 05/04/20 21:30 86 21 159/78 (105) 97 05/04/20 21:23 75 20 40 05/04/20 21:15 87 24 160/83 (108) 98 05/04/20 21:00 91 20 170/79 (109) 98 05/04/20 20:45 82 25 156/76 (102) 98 05/04/20 20:30 77 24 134/84 (101) 99 05/04/20 20:15 84 25 161/86 (111) 99 05/04/20 20:00 Mechanical Ventilator 05/04/20 20:00 90 23 159/94 (115) 99 05/04/20 20:00 82 05/04/20 20:00 45 05/04/20 19:45 85 26 154/88 (110) 100 05/04/20 19:30 78 25 159/77 (104) 100 05/04/20 19:23 86 22 40 05/04/20 19:15 90 18 166/78 100 05/04/20 19:00 94 21 145/77 (99) 95 05/04/20 18:46 84 149/71 05/04/20 18:45 84 13 149/71 98 05/04/20 18:00 72 13 135/62 (86) 99 05/04/20 17:00 70 21 121/74 (90) 99 05/04/20 16:00 98.6 82 22 126/63 (84) 99 05/04/20 16:00 45 05/04/20 16:00 Mechanical Ventilator 05/04/20 16:00 75 05/04/20 15:28 76 20 40 05/04/20 15:03 75 21 126/70 98 05/04/20 15:00 84 21 126/70 (88) 98 05/04/20 14:27 87 25 159/82 97 05/04/20 14:00 82 24 156/72 (100) 98 05/04/20 13:00 83 26 152/77 (102) 97 05/04/20 13:00 27 125/78 Mechanical Ventilator 45 Intake and Output 05/04/20 05/05/20 19:00 07:00 Intake Total 723.5 ml 440 ml Output Total 1020 ml 1750 ml Balance -296.5 ml -1310 ml Free Water 140 ml IV Total 43.5 ml Tube Feeding 480 ml 440 ml Other 60 ml Output Urine Total 925 ml 1750 ml Stool Total 95 ml Current Medications Medications (Trade) Dose Ordered Sig/Dennis Route PRN Reason Start Time Stop Time Status Last Admin Dose Admin Acetaminophen (Tylenol) 650 mg Q4H PRN GT Mild Pain (Pain Scale 1-3) 05/02/20 08:45 06/01/20 08:44 05/02/20 09:04 Acetaminophen/ Hydrocodone Bitart (North 5/325) 1 tab Q4H GT 05/02/20 11:00 05/09/20 10:59 05/05/20 12:05 Amlodipine Besylate (Norvasc) 2.5 mg BID GT 05/02/20 18:00 06/02/20 08:59 05/05/20 09:23 Chlorhexidine Gluconate (Marlen-Hex 2%) 1 applic DAILY@2000 TOPIC 03/30/20 20:00 06/28/20 19:59 05/04/20 20:00 Dextrose (Dextrose 50%) 25 ml Q30M PRN IV Hypoglycemia 03/29/20 20:45 06/27/20 20:44 Dextrose (Dextrose 50%) 50 ml Q30M PRN IV Hypoglycemia 03/29/20 20:45 06/27/20 20:44 Enoxaparin Sodium (Lovenox) 80 mg EVERY 12 HOURS SUBQ 04/06/20 21:00 07/05/20 20:59 05/05/20 09:24 Famotidine (Pepcid I.v.) 20 mg Q12HR PRN IVP HEART BURN 05/02/20 15:15 06/01/20 15:14 05/02/20 22:10 Fentanyl Citrate 250 ml @ 1 mls/hr Q24H IV 05/04/20 04:15 05/06/20 04:14 05/04/20 09:00 Hydralazine HCl (Apresoline) 10 mg Q4H PRN IV For High Blood Pressure 03/30/20 12:15 06/28/20 12:14 05/02/20 21:07 Insulin Aspart (NovoLOG) Q6HR SUBQ 03/30/20 00:00 06/28/20 00:00 05/01/20 18:00 Lansoprazole (Prevacid) 30 mg DAILY GT 05/02/20 09:00 06/01/20 08:59 05/05/20 09:22 Lorazepam (Ativan) 1 mg THREE TIMES A DAY ORAL 05/01/20 13:00 05/08/20 12:59 05/05/20 12:05 Midazolam HCl 200 ml @ 0 mls/hr Q24H IV 05/02/20 05:00 05/09/20 04:59 05/02/20 18:21 Prednisone (predniSONE) 10 mg DAILY ORAL 05/06/20 09:00 06/05/20 08:59 Quetiapine Fumarate (SEROqueL) 50 mg EVERY 8 HOURS ORAL 04/29/20 12:00 06/11/20 11:59 05/05/20 06:08 Trimethoprim/ Sulfamethoxazole (Bactrim-DS) 1 tab DAILY ORAL 04/30/20 09:00 05/07/20 08:59 05/05/20 09:23 Laboratory Tests 05/05/20 03:35: White Blood Count 9.1, Red Blood Count 3.71L, Hemoglobin 10.6L, Hematocrit 34.0L , Mean Corpuscular Volume 92, Mean Corpuscular Hemoglobin 28.7, Mean Corpuscular Hemoglobin Concent 31.3L, Red Cell Distribution Width 16.6H, Platelet Count 302, Mean Platelet Volume 5.8L, Neutrophils (%) (Auto) 77.3H, Lymphocytes (%) (Auto) 15.2L, Monocytes (%) (Auto) 6.4, Eosinophils (%) (Auto) 0.4, Basophils (%) (Auto) 0.7, Sodium Level 142, Potassium Level 3.7, Chloride Level 103, Carbon Dioxide Level 30, Anion Gap 9, Blood Urea Nitrogen 12, Creatinine 0.5L, Estimat Glomerular Filtration Rate > 60, Glucose Level 80, Calcium Level 9.0 Height (Feet): 5 Height (Inches): 10.00 Weight (Pounds): 243 General Appearance: no apparent distress EENT: other - Trach to vent Cardiovascular: tachycardia Respiratory/Chest: decreased breath sounds Abdomen: distended, other - PEG Rubin Cooper MD May 05, 2020 12:56
--- NOTE | 2020-05-05 13:20 | NUR ---
NURSE NOTES: patient gestured for assistance, patient was asking for help with repositioning and to hydrate mouth, oral care provided and moisturized his mouth. he is not sleeping and relaxing with cool air and ice packs on his shoulders.
--- NOTE | 2020-05-05 15:16 | General Progress Note ---
Subjective ROS Limited/Unobtainable: No Allergies: Coded Allergies: No Known Allergies (Unverified , 02/05/20) Objective Last 24 Hour Vital Signs Date Time Temp Pulse Resp B/P (MAP) Pulse Ox O2 Delivery O2 Flow Rate FiO2 05/05/20 13:41 103 24 45 05/05/20 12:37 97 26 152/82 96 05/05/20 12:05 113 24 153/93 93 05/05/20 12:00 Mechanical Ventilator 05/05/20 12:00 99.9 112 21 153/93 (113) 94 05/05/20 12:00 45 05/05/20 11:00 111 27 169/85 (113) 94 05/05/20 10:10 109 25 158/85 91 05/05/20 10:00 105 25 158/85 (109) 94 05/05/20 09:30 96 23 140/79 (99) 96 05/05/20 09:24 101 22 151/74 95 05/05/20 09:23 101 151/74 05/05/20 09:00 94 22 134/72 (92) 96 05/05/20 08:30 98 27 148/72 (97) 95 05/05/20 08:00 45 05/05/20 08:00 99.9 96 23 164/87 (112) 96 05/05/20 08:00 Mechanical Ventilator 05/05/20 07:30 95 22 151/79 (103) 94 05/05/20 07:15 82 24 45 05/05/20 05:45 94 23 171/88 (115) 94 05/05/20 05:30 99 26 167/96 (119) 94 05/05/20 05:15 98 22 176/87 (116) 86 05/05/20 05:15 82 24 40 05/05/20 05:00 93 22 158/76 (103) 91 05/05/20 04:45 97 26 166/97 (120) 89 05/05/20 04:30 95 21 165/87 (113) 90 05/05/20 04:15 95 25 148/90 (109) 91 05/05/20 04:00 Mechanical Ventilator 05/05/20 04:00 94 26 166/77 (106) 91 05/05/20 04:00 45 05/05/20 04:00 94 26 166/77 (106) 91 05/05/20 04:00 78 05/05/20 03:45 91 25 147/87 (107) 88 05/05/20 03:30 83 25 147/80 (102) 99 05/05/20 03:30 83 25 147/80 (102) 99 05/05/20 03:27 81 25 40 05/05/20 03:15 100 19 155/85 (108) 91 05/05/20 03:00 98 23 167/76 (106) 88 05/05/20 02:45 88 23 150/70 (96) 92 05/05/20 02:30 92 22 161/71 (101) 93 05/05/20 02:15 96 22 172/75 (107) 91 05/05/20 02:00 93 22 154/78 (103) 95 05/05/20 01:45 98 26 174/88 (116) 91 05/05/20 01:30 93 21 148/83 (104) 97 05/05/20 01:25 79 22 40 05/05/20 01:15 92 24 160/90 (113) 92 05/05/20 01:00 92 25 157/69 (98) 93 05/05/20 00:45 91 25 167/84 (111) 92 05/05/20 00:30 81 22 135/75 (95) 95 05/05/20 00:15 82 22 135/73 (93) 96 05/05/20 00:00 Mechanical Ventilator 05/05/20 00:00 89 05/05/20 00:00 100 24 173/95 (121) 93 05/05/20 00:00 45 05/05/20 00:00 100 24 173/95 (121) 93 05/04/20 23:45 102 26 161/85 (110) 89 05/04/20 23:30 82 25 137/72 (93) 96 05/04/20 23:20 89 24 40 05/04/20 23:15 107 27 169/83 (111) 90 05/04/20 23:00 104 25 145/74 (97) 93 05/04/20 22:30 83 23 130/66 (87) 95 05/04/20 22:15 105 25 151/83 (105) 95 05/04/20 22:00 116 25 198/82 (120) 86 05/04/20 21:45 95 22 175/76 (109) 97 05/04/20 21:30 86 21 159/78 (105) 97 05/04/20 21:23 75 20 40 05/04/20 21:15 87 24 160/83 (108) 98 05/04/20 21:00 91 20 170/79 (109) 98 05/04/20 20:45 82 25 156/76 (102) 98 05/04/20 20:30 77 24 134/84 (101) 99 05/04/20 20:15 84 25 161/86 (111) 99 05/04/20 20:00 Mechanical Ventilator 05/04/20 20:00 90 23 159/94 (115) 99 05/04/20 20:00 82 05/04/20 20:00 45 05/04/20 19:45 85 26 154/88 (110) 100 05/04/20 19:30 78 25 159/77 (104) 100 05/04/20 19:23 86 22 40 05/04/20 19:15 90 18 166/78 100 05/04/20 19:00 94 21 145/77 (99) 95 05/04/20 18:46 84 149/71 05/04/20 18:45 84 13 149/71 98 05/04/20 18:00 72 13 135/62 (86) 99 05/04/20 17:00 70 21 121/74 (90) 99 05/04/20 16:00 98.6 82 22 126/63 (84) 99 05/04/20 16:00 45 05/04/20 16:00 Mechanical Ventilator 05/04/20 16:00 75 05/04/20 15:28 76 20 40 Intake and Output 05/04/20 05/05/20 19:00 07:00 Intake Total 723.5 ml 440 ml Output Total 1020 ml 1750 ml Balance -296.5 ml -1310 ml Free Water 140 ml IV Total 43.5 ml Tube Feeding 480 ml 440 ml Other 60 ml Output Urine Total 925 ml 1750 ml Stool Total 95 ml Laboratory Tests 05/05/20 03:35: White Blood Count 9.1, Red Blood Count 3.71L, Hemoglobin 10.6L, Hematocrit 34.0L , Mean Corpuscular Volume 92, Mean Corpuscular Hemoglobin 28.7, Mean Corpuscular Hemoglobin Concent 31.3L, Red Cell Distribution Width 16.6H, Platelet Count 302, Mean Platelet Volume 5.8L, Neutrophils (%) (Auto) 77.3H, Lymphocytes (%) (Auto) 15.2L, Monocytes (%) (Auto) 6.4, Eosinophils (%) (Auto) 0.4, Basophils (%) (Auto) 0.7, Sodium Level 142, Potassium Level 3.7, Chloride Level 103, Carbon Dioxide Level 30, Anion Gap 9, Blood Urea Nitrogen 12, Creatinine 0.5L, Estimat Glomerular Filtration Rate > 60, Glucose Level 80, Calcium Level 9.0 Height (Feet): 5 Height (Inches): 10.00 Weight (Pounds): 243 General Appearance: no apparent distress EENT: normal ENT inspection Neck: supple Cardiovascular: normal rate Respiratory/Chest: decreased breath sounds Abdomen: normal bowel sounds, non tender, soft Extremities: non-tender Assessment/Plan Status: not improved, unchanged Assessment/Plan: hep c + but neg RNA GTF reglan 10 mg tolerating TF repeat labs fu LFTS>>>improving pepcid iv will fu Da Quintero MD May 05, 2020 15:16
--- NOTE | 2020-05-05 15:24 | NUR ---
NURSE NOTES: rectal tube irrigated with sterile irrigation solution, soft liquid stool draining from rectal tube Dr. Horta remains calm, following commands, and awake. [facility] exceptional children teacher assistant is aware the patient remains on fio2 of 45% with no episodes of desaturations.
--- NOTE | 2020-05-05 16:40 | NUR ---
NURSE NOTES: Order to transfer patient to SDU obtained from Dr. Mata, patient is awake and able to gesture needs, he is awake and alert and follow commands. he is relaxed listening to the radio and has a fan circulating cool air, he remains able to cough up thick secretion. the patient has clear urine with no sediment present with straw colored. patient tube feeding increased to 50ml/hr.
--- NOTE | 2020-05-05 17:53 | Infectious Diseases Prog Note ---
Assessment/Plan Assessment/Plan ASSESSMENT AND PLAN: 1. hx staph aureus bacteremia/mssa - s/p tx covid-19 +, hypoxia, sob, chest x-ray worse, ? PE, ? HCAP/aspiration pna trach/vent ? fungal uti, low grade fevers diarrhea - c.diff. negative - s/p zosyn and vancomycin - diflucan x 5 days - on prednisone - picc line changed - bactrim for pneumocystis prophylaxis - s/p tx for mssa bacteremia and ? endocarditis - monitor hypoxia, labs and chest x-ray - surveillance blood cultures negative 2. covid-19 isolation removed - covid-19 recovered 3. Hypertension history. Blood pressure treatment primary care team. 4. Elevated blood sugars. Blood sugar treatment per primary care team. 5. No known drug allergies. 6. Social history is positive for smoking. 7. Family history is noncontributory. 8. MAR was noted. 9. Case was discussed with RN. 10. Continue treatment per primary consultants. Subjective Constitutional: Reports: fever, fatigue, other - + trach and vent HEENT: Reports: congestion Respiratory: Reports: shortness of breath Cardiovascular: Denies: chest pain Gastrointestinal/Abdominal: Reports: diarrhea; Denies: nausea, vomiting Genitourinary: Reports: other - + joseph Neurologic: Reports: weakness Skin: Denies: rash Hematologic: Denies: bleeding Musculoskeletal: Denies: pain Allergies: Coded Allergies: No Known Allergies (Unverified , 02/05/20) Objective Last 24 Hour Vital Signs Date Time Temp Pulse Resp B/P (MAP) Pulse Ox O2 Delivery O2 Flow Rate FiO2 05/05/20 17:00 99 28 131/73 (92) 97 05/05/20 16:00 92 05/05/20 16:00 Mechanical Ventilator 05/05/20 16:00 45 05/05/20 16:00 98.4 103 29 142/64 (90) 97 05/05/20 15:00 110 24 163/86 (111) 96 05/05/20 14:00 107 28 168/94 (118) 96 05/05/20 13:41 103 24 45 05/05/20 13:00 97 25 142/76 (98) 97 05/05/20 12:37 97 26 152/82 96 05/05/20 12:05 113 24 153/93 93 05/05/20 12:00 Mechanical Ventilator 05/05/20 12:00 99.9 112 21 153/93 (113) 94 05/05/20 12:00 109 05/05/20 12:00 45 05/05/20 11:00 111 27 169/85 (113) 94 05/05/20 10:10 109 25 158/85 91 05/05/20 10:00 105 25 158/85 (109) 94 05/05/20 09:30 96 23 140/79 (99) 96 05/05/20 09:24 101 22 151/74 95 05/05/20 09:23 101 151/74 05/05/20 09:00 94 22 134/72 (92) 96 05/05/20 08:30 98 27 148/72 (97) 95 05/05/20 08:00 45 05/05/20 08:00 99.9 96 23 164/87 (112) 96 05/05/20 08:00 102 05/05/20 08:00 Mechanical Ventilator 05/05/20 07:30 95 22 151/79 (103) 94 05/05/20 07:15 82 24 45 05/05/20 05:45 94 23 171/88 (115) 94 05/05/20 05:30 99 26 167/96 (119) 94 05/05/20 05:15 98 22 176/87 (116) 86 05/05/20 05:15 82 24 40 05/05/20 05:00 93 22 158/76 (103) 91 05/05/20 04:45 97 26 166/97 (120) 89 05/05/20 04:30 95 21 165/87 (113) 90 05/05/20 04:15 95 25 148/90 (109) 91 05/05/20 04:00 Mechanical Ventilator 05/05/20 04:00 94 26 166/77 (106) 91 05/05/20 04:00 45 05/05/20 04:00 94 26 166/77 (106) 91 05/05/20 04:00 78 05/05/20 03:45 91 25 147/87 (107) 88 05/05/20 03:30 83 25 147/80 (102) 99 05/05/20 03:30 83 25 147/80 (102) 99 05/05/20 03:27 81 25 40 05/05/20 03:15 100 19 155/85 (108) 91 05/05/20 03:00 98 23 167/76 (106) 88 05/05/20 02:45 88 23 150/70 (96) 92 05/05/20 02:30 92 22 161/71 (101) 93 05/05/20 02:15 96 22 172/75 (107) 91 05/05/20 02:00 93 22 154/78 (103) 95 05/05/20 01:45 98 26 174/88 (116) 91 05/05/20 01:30 93 21 148/83 (104) 97 05/05/20 01:25 79 22 40 05/05/20 01:15 92 24 160/90 (113) 92 05/05/20 01:00 92 25 157/69 (98) 93 05/05/20 00:45 91 25 167/84 (111) 92 05/05/20 00:30 81 22 135/75 (95) 95 05/05/20 00:15 82 22 135/73 (93) 96 05/05/20 00:00 Mechanical Ventilator 05/05/20 00:00 89 05/05/20 00:00 100 24 173/95 (121) 93 05/05/20 00:00 45 05/05/20 00:00 100 24 173/95 (121) 93 05/04/20 23:45 102 26 161/85 (110) 89 05/04/20 23:30 82 25 137/72 (93) 96 05/04/20 23:20 89 24 40 05/04/20 23:15 107 27 169/83 (111) 90 05/04/20 23:00 104 25 145/74 (97) 93 05/04/20 22:30 83 23 130/66 (87) 95 05/04/20 22:15 105 25 151/83 (105) 95 05/04/20 22:00 116 25 198/82 (120) 86 05/04/20 21:45 95 22 175/76 (109) 97 05/04/20 21:30 86 21 159/78 (105) 97 05/04/20 21:23 75 20 40 05/04/20 21:15 87 24 160/83 (108) 98 05/04/20 21:00 91 20 170/79 (109) 98 05/04/20 20:45 82 25 156/76 (102) 98 05/04/20 20:30 77 24 134/84 (101) 99 05/04/20 20:15 84 25 161/86 (111) 99 05/04/20 20:00 Mechanical Ventilator 05/04/20 20:00 90 23 159/94 (115) 99 05/04/20 20:00 82 05/04/20 20:00 45 05/04/20 19:45 85 26 154/88 (110) 100 05/04/20 19:30 78 25 159/77 (104) 100 05/04/20 19:23 86 22 40 05/04/20 19:15 90 18 166/78 100 05/04/20 19:00 94 21 145/77 (99) 95 05/04/20 18:46 84 149/71 05/04/20 18:45 84 13 149/71 98 05/04/20 18:00 72 13 135/62 (86) 99 Height (Feet): 5 Height (Inches): 10.00 Weight (Pounds): 243 General Appearance: other - trach, vent, no pressors HEENT: normocephalic, atraumatic, anicteric, mucous membranes moist Respiratory/Chest: crackles/rales, rhonchi - bilaterally Cardiovascular: normal rate, regular rhythm, no gallop/murmur Abdomen: normal bowel sounds, soft, non tender, no organomegaly, non distended Genitourinary: other - no joseph Extremities: no cyanosis Skin: no rash Neurologic/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 The infiltrates are typical for Covid 19. No evidence of pulmonary embolus. CT abdomen and pelvis: IMPRESSION: 1. Scattered hepatic hypodense lesions, too small to characterize on this examination without intravenous contrast. 2. Colonic diverticulosis without evidence of acute diverticulitis. 3. Scattered enlarged mesenteric lymph nodes, presumably reactive. teral pneumonia. The infiltrates are typical for Covid 19. No evidence of pulmonary embolus. Chest x-ray - 12/19/19 - Indication: Shortness of breath Technique: One view of the chest Comparison: 02/17/2020 Findings: Interim worsening of bilateral infiltrates, particularly on the right. The heart is borderline enlarged. The pleural spaces are clear. Left arm PICC is again demonstrated Impression: Worsening bilateral infiltrates over one day, likely pneumonia CT chest - 02/19/20 - IMPRESSION: Increased extensive patchy ground-glass opacities and densities throughout the lungs, suggestive of Covid 19 infection. Chest x-ray 02/23/20 - Procedure: XRAY Chest 1v As Indication: Reason For Exam: INFECT Technique: One view of the chest Comparison: 02/20/2020 Findings: Allowing for differences in exposure technique, bilateral mid and lower lung infiltrates are probably unchanged. The heart size is normal. The pleural spaces are clear. Impression: Unchanged, over 4 days, findings as above. Chest x-ray - 02/25/20 - FINDINGS: Lungs: Interval slightly worsening bilateral airspace disease. Pleural space: Unremarkable. No pneumothorax. Heart: Unremarkable. No cardiomegaly. Mediastinum: Unremarkable. Bones/joints: Unremarkable. IMPRESSION: Interval slightly worsening bilateral airspace disease. Chest x-ray - 03/02/20 - Procedure: XRAY Chest 1v Indication: Shortness of breath Technique: One view of the chest Comparison: 02/25/2020 Findings: Bilateral interstitial and airspace infiltrates are unchanged. The heart size is normal. Left arm PICC is again demonstrated Impression: Unchanged, over one day, findings as above. Chest x-ray - 03/06/20 - Procedure: XRAY Chest 1v Indication: Shortness of breath Technique: One view of the chest Comparison: 03/02/2020 Findings: Bilateral infiltrates are unchanged. Normal heart size. Pleural spaces are clear Chest x-ray - 03/12/10 - Impression: COMPARISON: Chest radiograph March 06, 2020. FINDINGS/IMPRESSION: Improving basilar infiltrates. Follow chest radiograph recommended. The upper lung finley are clear. No pneumothorax. Stable cardiomegaly. Stable left upper extremity PICC line. anged, over 4 days, findings as above. Chest x-ray - 03/17/20 - Procedure: XRAY Chest 1v Indication: Shortness of breath Technique: One view of the chest Comparison: 03/12/2020 Findings: Left arm PICC is again demonstrated. Infiltrates are unchanged. The heart size is upper limits of normal. Impression: Unchanged, over 5 days, findings as above. Abdominal US - IMPRESSION: 1. Gallbladder is normal. 2. Hepatic steatosis. 3. 1.7 cm cyst right kidney. Impression. Chest x-ray - Procedure: XRAY Chest 1v Indication: Shortness of breath Technique: One view of the chest Comparison: 03/17/2020 Findings: Bilateral right greater than left infiltrates again demonstrated. The heart size is normal. There is a left arm PICC in good position. Impression: Unchanged, over 5 days, findings as above. Chest x-ray - 03/29/20 - Procedure: XRAY Chest 1v Indication: Cough Technique: One view of the chest Comparison: 03/28/2020 Findings: Bilateral infiltrates are unchanged or slightly worse, allowing for differences in exposure technique. The pleural spaces are clear. The heart size is normal. Stable satisfactory position of endotracheal tube, left arm PICC. O rogastric tube has retracted somewhat the position remains satisfactory. Impression: Stable to slightly worse bilateral infiltrates. 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 Interim advancement of orogastric tube as well. Bilateral infiltrates are unchanged. Left arm PICC remains Impression: Improved and now satisfactory tube positions as described. ICU nurse Maeve notified at the time of interpretation Chest x-ray - 04/02/20 - COMPARISON: Chest x-rays dated 03/31/20 and 03/12/20. FINDINGS: Lungs: No significant change in bilateral prominent interstitial markings. The lungs are otherwise clear without focal consolidation. Pleural space: Unremarkable. The costophrenic angles are sharp. No visible pneumothorax. Heart: Unremarkable. No cardiomegaly. Mediastinum: Unremarkable. Bones/joints: Unremarkable. Tubes, lines and devices: Endotracheal tube tip 6.5 cm above the sunny. NG tube tip in the distal stomach. Telemetry leads overlie the thorax. IMPRESSION: No significant change in bilateral prominent interstitial markings. Procedure: XRAY Chest 1v Procedure: XRAY Chest 1v Reason for study: Shortness of breath 04/06/20 - Comparison films: 04/02/2020. FINDINGS: Endotracheal tube and NG tube remain in place. There is worsening of right basilar infiltrates. Some haziness in left lung base unchanged. Cardiac and mediastinal silhouette are within normal limits. CP angles are sharp. The bony thorax appear unremarkable. IMPRESSION: Worsening of right basilar infiltrate. Chest x-ray - 04/09/20 - Procedure: XRAY Chest 1v FILM CXR 1 VIEW INDICATION: Infection COMPARISON: April 05, 2020 FINDINGS: Single frontal view demonstrates a normal cardiomediastinal silhouette. Endotracheal tube in place with tip above the sunny. Elevation of the right hemidiaphragm. Interstitial prominence with bilateral lower lobe infiltrates. Lung bases appear worse from the prior exam. Small right effusion. Right-sided PICC line with tip in the superior vena cava. Enteric tube in place. IMPRESSION: Interstitial prominence and bilateral lower lobe pneumonia with worsening appearance from the prior study. Chest x-ray - 04/12/20 - Procedure: XRAY Chest 1v Indication: Shortness of breath Technique: One view of the chest Comparison: 04/09/2020 Findings: Stable satisfactory tube and line positions. Bilateral infiltrates have worsened slightly since prior study. The heart size is normal. Impression: Worsening bilateral infiltrates, over 3 days Chest x-ray - 04/15/20 - COMPARISON: 02/11/21. FINDINGS: Lungs: There is been no significant change in mild to moderate patchy diffuse bilateral alveolar infiltrates which are most prominent in the lung bases. Pleural space: Unremarkable. No pneumothorax. Heart: Unremarkable. No cardiomegaly. Mediastinum: Unremarkable. Bones/joints: Unremarkable. Tubes, lines and devices: There is an endotracheal tube, right-sided PICC line and NG tube in good position. IMPRESSION: There is been no significant change in mild to moderate patchy diffuse bilateral alveolar infiltrates which are most prominent in the lung bases. Chest x-ray - 04/18/20 - Procedure: XRAY Chest 1v Indication: Cough Technique: One view of the chest Comparison: 04/15/2020 Findings: Less optimal inspiration currently than previously. Stable satisfactory positions of endotracheal and orogastric tubes and right arm PICC. Bilateral infiltrates are again demonstrated, unchanged. Impression: Unchanged, over 3 days, findings as above. Chest x-ray - 04/21/20 - Procedure: XRAY Chest 1v Indication: Dyspnea Technique: One view of the chest Comparison: 04/18/2020 Findings: Stable tube and line positions. Bilateral infiltrates are unchanged Impression: Unchanged, over one day, findings as above. Procedure: XRAY Chest 1v Procedure: XRAY Chest 1v Reason for study: Reason For Exam: SOB Chest x-ray - 04/25/20 - Comparison films: 04/21/2020. FINDINGS: Endotracheal tube, NG tube and right PICC line remain in place. Vascularity is normal. Bilateral infiltrates are unchanged. Cardiac and mediastinal silhouette are within normal limits. CP angles are sharp. The bony thorax appear unremarkable. IMPRESSION: NO SIGNIFICANT CHANGE COMPARED TO PREVIOUS EXAM. Chest x-rasy - 04/30/20 - FINDINGS: Lungs: Bilateral patchy pulmonary opacities concerning for pneumonia, not significantly changed compared to the prior chest x-ray. Pleural space: Unremarkable. The costophrenic angles are sharp. No visible pneumothorax. Heart: Unremarkable. No cardiomegaly. Mediastinum: Unremarkable. Bones/joints: Unremarkable. Tubes, lines and devices: Tracheostomy tube in place, with expected positioning. Telemetry leads overlie the thorax. Right arm PICC with catheter tip in the SVC region. IMPRESSION: Bilateral patchy pulmonary opacities concerning for pneumonia, not significantly changed compared to the prior chest x-ray. Microbiology Date/Time Source Procedure Growth Status 05/02/20 15:25 Urine,Clean Catch Urine Culture - Preliminary YEAST Resulted 04/29/20 19:00 Blood Blood Culture - Final NO GROWTH AFTER 5 DAYS Complete 04/14/20 16:35 Stool Clostridium difficile Toxin Assay - Final Complete 04/12/20 08:40 Sputum Gram Stain - Final Complete 04/12/20 08:40 Sputum Sputum Culture - Final NORMAL UPPER RESPIRATORY WILIAM AT 48 ... Complete Laboratory Tests Test 05/05/20 03:35 White Blood Count 9.1 K/UL (4.8-10.8) Red Blood Count 3.71 M/UL (4.70-6.10) L Hemoglobin 10.6 G/DL (14.2-18.0) L Hematocrit 34.0 % (42.0-52.0) L Mean Corpuscular Volume 92 FL (80-99) Mean Corpuscular Hemoglobin 28.7 PG (27.0-31.0) Mean Corpuscular Hemoglobin Concent 31.3 G/DL (32.0-36.0) L Red Cell Distribution Width 16.6 % (11.6-14.8) H Platelet Count 302 K/UL (150-450) Mean Platelet Volume 5.8 FL (6.5-10.1) L Neutrophils (%) (Auto) 77.3 % (45.0-75.0) H Lymphocytes (%) (Auto) 15.2 % (20.0-45.0) L Monocytes (%) (Auto) 6.4 % (1.0-10.0) Eosinophils (%) (Auto) 0.4 % (0.0-3.0) Basophils (%) (Auto) 0.7 % (0.0-2.0) Sodium Level 142 MMOL/L (136-145) Potassium Level 3.7 MMOL/L (3.5-5.1) Chloride Level 103 MMOL/L (98-107) Carbon Dioxide Level 30 MMOL/L (21-32) Anion Gap 9 mmol/L (5-15) Blood Urea Nitrogen 12 mg/dL (7-18) Creatinine 0.5 MG/DL (0.55-1.30) L Estimat Glomerular Filtration Rate > 60 mL/min (>60) Glucose Level 80 MG/DL (74-106) Calcium Level 9.0 MG/DL (8.5-10.1) Current Medications Medications (Trade) Dose Ordered Sig/Dennis Route PRN Reason Start Time Stop Time Status Last Admin Dose Admin Acetaminophen (Tylenol) 650 mg Q4H PRN GT Mild Pain (Pain Scale 1-3) 05/02/20 08:45 06/01/20 08:44 05/02/20 09:04 Acetaminophen/ Hydrocodone Bitart (Lisle 5/325) 1 tab Q4H GT 05/02/20 11:00 05/09/20 10:59 05/05/20 15:31 Amlodipine Besylate (Norvasc) 2.5 mg BID GT 05/02/20 18:00 06/02/20 08:59 05/05/20 09:23 Chlorhexidine Gluconate (Marlen-Hex 2%) 1 applic DAILY@1999 TOPIC 03/30/20 20:00 06/28/20 19:59 05/04/20 20:00 Dextrose (Dextrose 50%) 25 ml Q30M PRN IV Hypoglycemia 03/29/20 20:45 06/27/20 20:44 Dextrose (Dextrose 50%) 50 ml Q30M PRN IV Hypoglycemia 03/29/20 20:45 06/27/20 20:44 Enoxaparin Sodium (Lovenox) 80 mg EVERY 12 HOURS SUBQ 04/06/20 21:00 07/05/20 20:59 05/05/20 09:24 Famotidine (Pepcid I.v.) 20 mg Q12HR PRN IVP HEART BURN 05/02/20 15:15 06/01/20 15:14 05/02/20 22:10 Fentanyl Citrate 250 ml @ 1 mls/hr Q24H IV 05/04/20 04:15 05/06/20 04:14 05/04/20 09:00 Hydralazine HCl (Apresoline) 10 mg Q4H PRN IV For High Blood Pressure 03/30/20 12:15 06/28/20 12:14 05/02/20 21:07 Insulin Aspart (NovoLOG) Q6HR SUBQ 03/30/20 00:00 06/28/20 00:00 05/01/20 18:00 Lansoprazole (Prevacid) 30 mg DAILY GT 05/02/20 09:00 06/01/20 08:59 05/05/20 09:22 Lorazepam (Ativan) 1 mg THREE TIMES A DAY ORAL 05/01/20 13:00 05/08/20 12:59 05/05/20 12:05 Midazolam HCl 200 ml @ 0 mls/hr Q24H IV 05/02/20 05:00 05/09/20 04:59 05/02/20 18:21 Prednisone (predniSONE) 10 mg DAILY ORAL 05/06/20 09:00 06/05/20 08:59 Quetiapine Fumarate (SEROqueL) 50 mg EVERY 8 HOURS ORAL 04/29/20 12:00 06/11/20 11:59 05/05/20 15:31 Trimethoprim/ Sulfamethoxazole (Bactrim-DS) 1 tab DAILY ORAL 04/30/20 09:00 05/07/20 08:59 05/05/20 09:23 Kisha Salazar MD May 05, 2020 17:53
--- NOTE | 2020-05-05 18:06 | NUR ---
NURSE NOTES: Dr. Awan updated at the bedside of patient heart rate at 92-98 in sinus rhythm, heart rate noted to have increased to approximately to 110-120 while coughing thick yellow tannish secretions. Dr. Horta remained awake and alert during episodes.
--- NOTE | 2020-05-05 18:29 | Cardiology Progress Note ---
Assessment/Plan Assessment/Plan Acute covid 19 pneumonia hypoxemia infiltrate bilat bacteremia hypernatremia / hyponatremia mild abn lfts tachy post intubation fever fungemia dvt upper ext now on 45 % fio2 , have been successfully weaned form 100 % s/p trach / peg now afebrile now hypoxemia unlikely cardiac related cxr noen operformed sicne 04/30 tele reviewed sinus / sinus fahad now is on full dose anticoag due to dvt ue cr is stable d/w rn norvasc for bp more awake off iv sedative attmept weaning soon bp better on norvasc will give 3 days of lasix repeat cxrf on Friday Subjective ROS Limited/Unobtainable: Yes Objective Last 24 Hour Vital Signs Date Time Temp Pulse Resp B/P (MAP) Pulse Ox O2 Delivery O2 Flow Rate FiO2 05/05/20 18:00 104 29 138/72 (94) 98 05/05/20 18:00 94 26 138/72 (94) 98 05/05/20 17:56 96 149/99 05/05/20 17:56 96 24 149/99 98 05/05/20 17:00 99 28 131/73 (92) 97 05/05/20 16:00 92 05/05/20 16:00 Mechanical Ventilator 05/05/20 16:00 45 05/05/20 16:00 98.4 103 29 142/64 (90) 97 05/05/20 15:00 110 24 163/86 (111) 96 05/05/20 14:00 107 28 168/94 (118) 96 05/05/20 13:41 103 24 45 05/05/20 13:00 97 25 142/76 (98) 97 05/05/20 12:37 97 26 152/82 96 05/05/20 12:05 113 24 153/93 93 05/05/20 12:00 Mechanical Ventilator 05/05/20 12:00 99.9 112 21 153/93 (113) 94 05/05/20 12:00 109 05/05/20 12:00 45 05/05/20 11:00 111 27 169/85 (113) 94 05/05/20 10:10 109 25 158/85 91 05/05/20 10:00 105 25 158/85 (109) 94 05/05/20 09:30 96 23 140/79 (99) 96 05/05/20 09:24 101 22 151/74 95 05/05/20 09:23 101 151/74 05/05/20 09:00 94 22 134/72 (92) 96 05/05/20 08:30 98 27 148/72 (97) 95 05/05/20 08:00 45 05/05/20 08:00 99.9 96 23 164/87 (112) 96 05/05/20 08:00 102 05/05/20 08:00 Mechanical Ventilator 05/05/20 07:30 95 22 151/79 (103) 94 05/05/20 07:15 82 24 45 05/05/20 05:45 94 23 171/88 (115) 94 05/05/20 05:30 99 26 167/96 (119) 94 05/05/20 05:15 98 22 176/87 (116) 86 05/05/20 05:15 82 24 40 05/05/20 05:00 93 22 158/76 (103) 91 05/05/20 04:45 97 26 166/97 (120) 89 05/05/20 04:30 95 21 165/87 (113) 90 05/05/20 04:15 95 25 148/90 (109) 91 05/05/20 04:00 Mechanical Ventilator 05/05/20 04:00 94 26 166/77 (106) 91 05/05/20 04:00 45 05/05/20 04:00 94 26 166/77 (106) 91 05/05/20 04:00 78 05/05/20 03:45 91 25 147/87 (107) 88 05/05/20 03:30 83 25 147/80 (102) 99 05/05/20 03:30 83 25 147/80 (102) 99 05/05/20 03:27 81 25 40 05/05/20 03:15 100 19 155/85 (108) 91 05/05/20 03:00 98 23 167/76 (106) 88 05/05/20 02:45 88 23 150/70 (96) 92 05/05/20 02:30 92 22 161/71 (101) 93 05/05/20 02:15 96 22 172/75 (107) 91 05/05/20 02:00 93 22 154/78 (103) 95 05/05/20 01:45 98 26 174/88 (116) 91 05/05/20 01:30 93 21 148/83 (104) 97 05/05/20 01:25 79 22 40 05/05/20 01:15 92 24 160/90 (113) 92 05/05/20 01:00 92 25 157/69 (98) 93 05/05/20 00:45 91 25 167/84 (111) 92 05/05/20 00:30 81 22 135/75 (95) 95 05/05/20 00:15 82 22 135/73 (93) 96 05/05/20 00:00 Mechanical Ventilator 05/05/20 00:00 89 05/05/20 00:00 100 24 173/95 (121) 93 05/05/20 00:00 45 05/05/20 00:00 100 24 173/95 (121) 93 05/04/20 23:45 102 26 161/85 (110) 89 05/04/20 23:30 82 25 137/72 (93) 96 05/04/20 23:20 89 24 40 05/04/20 23:15 107 27 169/83 (111) 90 05/04/20 23:00 104 25 145/74 (97) 93 05/04/20 22:30 83 23 130/66 (87) 95 05/04/20 22:15 105 25 151/83 (105) 95 05/04/20 22:00 116 25 198/82 (120) 86 05/04/20 21:45 95 22 175/76 (109) 97 05/04/20 21:30 86 21 159/78 (105) 97 05/04/20 21:23 75 20 40 05/04/20 21:15 87 24 160/83 (108) 98 05/04/20 21:00 91 20 170/79 (109) 98 05/04/20 20:45 82 25 156/76 (102) 98 05/04/20 20:30 77 24 134/84 (101) 99 05/04/20 20:15 84 25 161/86 (111) 99 05/04/20 20:00 Mechanical Ventilator 05/04/20 20:00 90 23 159/94 (115) 99 05/04/20 20:00 82 05/04/20 20:00 45 05/04/20 19:45 85 26 154/88 (110) 100 05/04/20 19:30 78 25 159/77 (104) 100 05/04/20 19:23 86 22 40 05/04/20 19:15 90 18 166/78 100 05/04/20 19:00 94 21 145/77 (99) 95 05/04/20 18:46 84 149/71 05/04/20 18:45 84 13 149/71 98 General Appearance: no apparent distress, on vent, patient on isolation, isolation precautions Extremities: other - edema lue Intake and Output 05/04/20 05/05/20 19:00 07:00 Intake Total 723.5 ml 440 ml Output Total 1020 ml 1750 ml Balance -296.5 ml -1310 ml Free Water 140 ml IV Total 43.5 ml Tube Feeding 480 ml 440 ml Other 60 ml Output Urine Total 925 ml 1750 ml Stool Total 95 ml Laboratory Tests Test 05/05/20 03:35 White Blood Count 9.1 K/UL (4.8-10.8) Red Blood Count 3.71 M/UL (4.70-6.10) L Hemoglobin 10.6 G/DL (14.2-18.0) L Hematocrit 34.0 % (42.0-52.0) L Mean Corpuscular Volume 92 FL (80-99) Mean Corpuscular Hemoglobin 28.7 PG (27.0-31.0) Mean Corpuscular Hemoglobin Concent 31.3 G/DL (32.0-36.0) L Red Cell Distribution Width 16.6 % (11.6-14.8) H Platelet Count 302 K/UL (150-450) Mean Platelet Volume 5.8 FL (6.5-10.1) L Neutrophils (%) (Auto) 77.3 % (45.0-75.0) H Lymphocytes (%) (Auto) 15.2 % (20.0-45.0) L Monocytes (%) (Auto) 6.4 % (1.0-10.0) Eosinophils (%) (Auto) 0.4 % (0.0-3.0) Basophils (%) (Auto) 0.7 % (0.0-2.0) Sodium Level 142 MMOL/L (136-145) Potassium Level 3.7 MMOL/L (3.5-5.1) Chloride Level 103 MMOL/L (98-107) Carbon Dioxide Level 30 MMOL/L (21-32) Anion Gap 9 mmol/L (5-15) Blood Urea Nitrogen 12 mg/dL (7-18) Creatinine 0.5 MG/DL (0.55-1.30) L Estimat Glomerular Filtration Rate > 60 mL/min (>60) Glucose Level 80 MG/DL (74-106) Calcium Level 9.0 MG/DL (8.5-10.1) Objective pt seen persoanlly Manan Awan MD May 05, 2020 18:29
--- NOTE | 2020-05-05 19:27 | NUR ---
NURSE HAND-OFF REPORT: Latest Vital Signs: Temperature 98.4 , Pulse 94 , B/P 150 /77 , Respiratory Rate 26 , O2 SAT 100 , Mechanical Ventilator, O2 Flow Rate . Vital Sign Comment: EKG Rhythm: Sinus Rhythm Rhythm change?: N Notified?: N -Dr.Toluie INTERIANO Response: Message left await call Latest Hassan Fall Score: 35 Fall Risk: Medium Risk Safety Measures: Call light Within Reach, Bed Alarm Zone 1, Side Rails Side Rails x3, Bed position Low and Locked. Fall Precautions: Yellow Socks Yellow Gown Door Sign Patient Fall Education Report given to PRIYANKA Noonan. patient to be transffered to SDU to room 238-2.
--- NOTE | 2020-05-05 19:45 | NUR ---
NURSE HAND-OFF REPORT: Important Events on Shift:Patient transferred from ICU with all belonging. Report given to Margy Hyman Vitals stable. Patient denies pain or any needs. Patient Status: Diet: Pending Orders: Pending Results/Labs: Pending MD notification: Latest Vital Signs: Temperature 98.4 , Pulse 89 , B/P 146 /88 , Respiratory Rate 22 , O2 SAT 98 , Mechanical Ventilator, O2 Flow Rate . Vital Sign Comment: EKG Rhythm: Sinus Rhythm Rhythm change?: N Notified?: N -Dr.Toluie INTERIANO Response: Message left await call Latest Hassan Fall Score: 35 Fall Risk: Medium Risk Safety Measures: Call light Within Reach, Bed Alarm Zone 1, Side Rails Side Rails x3, Bed position Low and Locked. Fall Precautions: Yellow Socks Yellow Gown Door Sign Patient Fall Education Report given to Margy Hyman RN .
--- NOTE | 2020-05-05 19:52 | NUR ---
Pt admitted to SDU from ICU. Report at bedside from PRIYANKA Kapoor and assumed care of patient.
[2020-05-05] MEDS: Dyna-Hex 2% Top Sol 2oz TOPIC SCH (20:30)
--- NOTE | 2020-05-05 21:30 | NUR ---
Pt in NAD, requested to use his cell phone to speak with his sister. [id number] he is unable to speak over the trach/vent he requested to listen to her voice and have her speak to him. Successful call. VSS on patient. Will continue to monitor. See charting for assessment details.
--- NOTE | 2020-05-05 22:37 | NUR ---
Pt repositioned and oral care provided. Pt in NAD and will continue to monitor. Pt is close to nurses station.
[2020-05-06] VITALS: BP 122/83
--- NOTE | 2020-05-06 00:10 | NUR ---
Midnight assessment completed. Pt did not sleep well in ICU and got days and nights mixed up. Educated on importance of sleep and that we will limit and bundle care this evening as well as wait until the later am for a bath to allow for sleep and better chances for successful weaning so that he is not so tired. Pt emotionally labile and would really benefit from a psych consult to assess for the need for antidepressants. Will pass this along to Charge, RN and day shift RN. VSS, repositioned to his back at his request as he said he was very uncomfortable. Great U.O. post lasix administration. Pt in NAD and will continue to monitor.
[2020-05-06] MEDS: HYDROcodone/Acetamin 5/325 tab GT SCH ×6 (03:06→22:27)
[2020-05-06 04:00] VITALS: BP 148/84
--- NOTE | 2020-05-06 04:23 | NUR ---
0400 Assessment complete, see charting for details. Pt in NAD, VSS, and sleeping comfortably per his report when not awakened by staff. Will continue to monitor the patient.
--- NOTE | 2020-05-06 05:45 | NUR ---
Full bath performed on patient. Pictures of wounds taken and uploaded into system by milling general superintendent. See photo uploads for details. Pt repositioned and oral care provided on patient. Pt in NAD and VSS. BP slightly elevated post bath, but self resolved. No need for PRN intervention. Will continue to monitor.
[2020-05-06] MEDS: NovoLOG Insulin Flexpen SUBQ SCH ×5 (06:00→23:53)
[2020-05-06 06:35] LABS: BASOPHILS % (AUTO) 0.9 % (0.0-2.0); EOSINOPHILS % (AUTO) 0.1 % (0.0-3.0); HEMATOCRIT 33.3 % (42.0-52.0); HEMOGLOBIN 10.5 G/DL (14.2-18.0); LYMPHOCYTES % (AUTO) 12.9 % (20.0-45.0); MEAN CORPUSCULAR VOLUME 91 FL (80-99); MONOCYTES % (AUTO) 4.2 % (1.0-10.0); NEUTROPHILS % (AUTO) 81.9 % (45.0-75.0); PLATELET COUNT 286 K/UL (150-450); RED BLOOD COUNT 3.64 M/UL (4.70-6.10); RED CELL DISTRIBUTION WIDTH 16.4 % (11.6-14.8); WHITE BLOOD COUNT 8.8 K/UL (4.8-10.8)
--- NOTE | 2020-05-06 07:10 | NUR ---
NURSE NOTES: Received report from PRIYANKA Ji. Patient is AOx3 in bed, asleep at this time. No pain or discomfort noted at this time. Patient on trach to vent Shiley 8 AC 18, TV 750, FiO2 45% PEEP 5, breathing is even and unlabored with no signs of respiratory distress. Bed in lowest position, locked with side rails x2 up. Call light within reach.
[2020-05-06 07:11] LABS: ALANINE AMINOTRANSFERASE 27 U/L (12-78); ALBUMIN 2.8 G/DL (3.4-5.0); ALBUMIN/GLOBULIN RATIO 0.8 (1.0-2.7); ALKALINE PHOSPHATASE 98 U/L (46-116); ANION GAP 6 mmol/L (5-15); ASPARTATE AMINO TRANSFERASE 16 U/L (15-37); BILIRUBIN,TOTAL 0.5 MG/DL (0.2-1.0); BLOOD UREA NITROGEN 15 mg/dL (7-18); CALCIUM 8.9 MG/DL (8.5-10.1); CARBON DIOXIDE 32 MMOL/L (21-32); CHLORIDE 102 MMOL/L (98-107); CREATININE 0.4 MG/DL (0.55-1.30); PHOSPHORUS 3.2 MG/DL (2.5-4.9); POTASSIUM 3.9 MMOL/L (3.5-5.1); SODIUM 140 MMOL/L (136-145)
--- NOTE | 2020-05-06 07:14 | NUR ---
Report given to PRIYANKA Clarke who assumed care of patient.
[2020-05-06 08:00] VITALS: BP 127/80
--- NOTE | 2020-05-06 08:33 | General Progress Note ---
Subjective ROS Limited/Unobtainable: No Allergies: Coded Allergies: No Known Allergies (Unverified , 02/05/20) Objective Last 24 Hour Vital Signs Date Time Temp Pulse Resp B/P (MAP) Pulse Ox O2 Delivery O2 Flow Rate FiO2 05/06/20 07:07 85 23 45 05/06/20 05:07 88 23 45 05/06/20 04:00 45 05/06/20 04:00 Mechanical Ventilator 05/06/20 04:00 89 05/06/20 04:00 98.4 98 148/84 (105) 05/06/20 03:18 86 23 45 05/06/20 00:56 98 27 45 05/06/20 00:00 45 05/06/20 00:00 98.5 98 29 122/83 (96) 96 05/06/20 00:00 Mechanical Ventilator 05/06/20 00:00 98 05/05/20 23:10 105 27 45 05/05/20 21:04 97 28 45 05/05/20 20:00 45 05/05/20 20:00 98.4 100 29 146/83 (104) 97 05/05/20 20:00 89 05/05/20 20:00 Mechanical Ventilator 05/05/20 19:45 89 22 98 05/05/20 19:30 88 23 146/88 (107) 99 05/05/20 19:19 94 26 45 05/05/20 19:15 88 23 135/85 (102) 98 05/05/20 19:03 86 23 150/77 100 05/05/20 19:00 91 24 150/77 (101) 98 05/05/20 18:45 94 27 130/87 (101) 97 05/05/20 18:30 101 29 152/84 (106) 97 05/05/20 18:15 96 27 144/93 (110) 97 05/05/20 18:00 104 29 138/72 (94) 98 05/05/20 18:00 94 26 138/72 (94) 98 05/05/20 17:56 96 149/99 05/05/20 17:56 96 24 149/99 98 05/05/20 17:00 99 28 131/73 (92) 97 05/05/20 16:00 92 05/05/20 16:00 Mechanical Ventilator 05/05/20 16:00 45 05/05/20 16:00 98.4 103 29 142/64 (90) 97 05/05/20 15:00 110 24 163/86 (111) 96 05/05/20 14:00 107 28 168/94 (118) 96 05/05/20 13:41 103 24 45 05/05/20 13:00 97 25 142/76 (98) 97 05/05/20 12:37 97 26 152/82 96 05/05/20 12:05 113 24 153/93 93 05/05/20 12:00 Mechanical Ventilator 05/05/20 12:00 99.9 112 21 153/93 (113) 94 05/05/20 12:00 109 05/05/20 12:00 45 05/05/20 11:00 111 27 169/85 (113) 94 05/05/20 10:10 109 25 158/85 91 05/05/20 10:00 105 25 158/85 (109) 94 05/05/20 09:30 96 23 140/79 (99) 96 05/05/20 09:24 101 22 151/74 95 05/05/20 09:23 101 151/74 05/05/20 09:00 94 22 134/72 (92) 96 Intake and Output 05/05/20 05/06/20 19:00 07:00 Intake Total 740 ml 740 ml Output Total 830 ml 1250 ml Balance -90 ml -510 ml Free Water 190 ml 240 ml Tube Feeding 530 ml 500 ml Other 20 ml Output Urine Total 830 ml 1250 ml Laboratory Tests 05/06/20 05:55: White Blood Count 8.8, Red Blood Count 3.64L, Hemoglobin 10.5L, Hematocrit 33.3L , Mean Corpuscular Volume 91, Mean Corpuscular Hemoglobin 28.8, Mean Corpuscular Hemoglobin Concent 31.6L, Red Cell Distribution Width 16.4H, Platelet Count 286, Mean Platelet Volume 6.4L, Neutrophils (%) (Auto) 81.9H, Lymphocytes (%) (Auto) 12.9L, Monocytes (%) (Auto) 4.2, Eosinophils (%) (Auto) 0.1, Basophils (%) (Auto) 0.9, Sodium Level 140, Potassium Level 3.9, Chloride Level 102, Carbon Dioxide Level 32, Anion Gap 6, Blood Urea Nitrogen 15, Creatinine 0.4L, Estimat Glomerular Filtration Rate > 60, Glucose Level 91, Calcium Level 8.9, Phosphorus Level 3.2, Magnesium Level 2.0, Total Bilirubin 0.5, Aspartate Amino Transf (AST/SGOT) 16, Alanine Aminotransferase (ALT/SGPT) 27, Alkaline Phosphatase 98, Total Protein 6.1L, Albumin 2.8L, Globulin 3.3, Albumin/Globulin Ratio 0.8L Height (Feet): 5 Height (Inches): 10.00 Weight (Pounds): 243 General Appearance: no apparent distress EENT: normal ENT inspection Neck: supple Cardiovascular: normal rate Respiratory/Chest: decreased breath sounds Abdomen: hypoactive bowel sounds Extremities: non-tender Assessment/Plan Status: not improved, unchanged Assessment/Plan: hep c + but neg RNA GTF reglan 10 mg tolerating TF repeat labs fu LFTS>>>improving pepcid iv will fu Da Quintero MD May 06, 2020 08:33
[2020-05-06] MEDS: Enoxaparin 80mg Inj SUBQ SCH ×2 (08:51→20:40)
[2020-05-06] MEDS: Bactrim-DS 1 tab ORAL SCH (08:52)
[2020-05-06] MEDS: Fluconazole 100mg tab ORAL SCH (08:52)
[2020-05-06] MEDS: LORazepam 1mg tab ORAL SCH ×3 (08:52→18:04)
[2020-05-06] MEDS ORDERED: Sterile Water Irrig 1000ml IRRIG ONE (10:17)
--- NOTE | 2020-05-06 10:33 | Surgery Progress Note ---
Surgery Progress Note Subjective Procedure Performed tracheostomy Symptoms: improved, tolerating diet, passing flatus Additional Comments downgraded no n/v on vent comfortable d/c planning sub acute Objective Last 24 Hour Vital Signs Date Time Temp Pulse Resp B/P (MAP) Pulse Ox O2 Delivery O2 Flow Rate FiO2 05/06/20 09:22 90 22 130/80 96 05/06/20 09:11 81 23 45 05/06/20 08:52 68 127/71 05/06/20 08:52 68 23 127/67 96 05/06/20 08:00 45 05/06/20 08:00 79 05/06/20 08:00 Mechanical Ventilator 05/06/20 08:00 98.2 85 23 127/80 (96) 97 05/06/20 07:07 85 23 45 05/06/20 05:07 88 23 45 05/06/20 04:00 45 05/06/20 04:00 Mechanical Ventilator 05/06/20 04:00 89 05/06/20 04:00 98.4 98 148/84 (105) 05/06/20 03:18 86 23 45 05/06/20 00:56 98 27 45 05/06/20 00:00 45 05/06/20 00:00 98.5 98 29 122/83 (96) 96 05/06/20 00:00 Mechanical Ventilator 05/06/20 00:00 98 05/05/20 23:10 105 27 45 05/05/20 21:04 97 28 45 05/05/20 20:00 45 05/05/20 20:00 98.4 100 29 146/83 (104) 97 05/05/20 20:00 89 05/05/20 20:00 Mechanical Ventilator 05/05/20 19:45 89 22 98 05/05/20 19:30 88 23 146/88 (107) 99 05/05/20 19:19 94 26 45 05/05/20 19:15 88 23 135/85 (102) 98 05/05/20 19:03 86 23 150/77 100 05/05/20 19:00 91 24 150/77 (101) 98 05/05/20 18:45 94 27 130/87 (101) 97 05/05/20 18:30 101 29 152/84 (106) 97 05/05/20 18:15 96 27 144/93 (110) 97 05/05/20 18:00 104 29 138/72 (94) 98 05/05/20 18:00 94 26 138/72 (94) 98 05/05/20 17:56 96 149/99 05/05/20 17:56 96 24 149/99 98 05/05/20 17:00 99 28 131/73 (92) 97 05/05/20 16:00 92 05/05/20 16:00 Mechanical Ventilator 05/05/20 16:00 45 05/05/20 16:00 98.4 103 29 142/64 (90) 97 05/05/20 15:00 110 24 163/86 (111) 96 05/05/20 14:00 107 28 168/94 (118) 96 05/05/20 13:41 103 24 45 05/05/20 13:00 97 25 142/76 (98) 97 05/05/20 12:37 97 26 152/82 96 05/05/20 12:05 113 24 153/93 93 05/05/20 12:00 Mechanical Ventilator 05/05/20 12:00 99.9 112 21 153/93 (113) 94 05/05/20 12:00 109 05/05/20 12:00 45 05/05/20 11:00 111 27 169/85 (113) 94 I&O Intake and Output 05/05/20 05/06/20 19:00 07:00 Intake Total 740 ml 740 ml Output Total 830 ml 1250 ml Balance -90 ml -510 ml Free Water 190 ml 240 ml Tube Feeding 530 ml 500 ml Other 20 ml Output Urine Total 830 ml 1250 ml Dressing: dry Wound: clean Cardiovascular: RSR Respiratory: clear, decreased breath sounds Abdomen: soft, flat, non-tender, present bowel sounds, non-distended Extremities: no edema, no tenderness, no cyanosis Laboratory Tests Test 05/06/20 05:55 White Blood Count 8.8 K/UL (4.8-10.8) Red Blood Count 3.64 M/UL (4.70-6.10) L Hemoglobin 10.5 G/DL (14.2-18.0) L Hematocrit 33.3 % (42.0-52.0) L Mean Corpuscular Volume 91 FL (80-99) Mean Corpuscular Hemoglobin 28.8 PG (27.0-31.0) Mean Corpuscular Hemoglobin Concent 31.6 G/DL (32.0-36.0) L Red Cell Distribution Width 16.4 % (11.6-14.8) H Platelet Count 286 K/UL (150-450) Mean Platelet Volume 6.4 FL (6.5-10.1) L Neutrophils (%) (Auto) 81.9 % (45.0-75.0) H Lymphocytes (%) (Auto) 12.9 % (20.0-45.0) L Monocytes (%) (Auto) 4.2 % (1.0-10.0) Eosinophils (%) (Auto) 0.1 % (0.0-3.0) Basophils (%) (Auto) 0.9 % (0.0-2.0) Sodium Level 140 MMOL/L (136-145) Potassium Level 3.9 MMOL/L (3.5-5.1) Chloride Level 102 MMOL/L (98-107) Carbon Dioxide Level 32 MMOL/L (21-32) Anion Gap 6 mmol/L (5-15) Blood Urea Nitrogen 15 mg/dL (7-18) Creatinine 0.4 MG/DL (0.55-1.30) L Estimat Glomerular Filtration Rate > 60 mL/min (>60) Glucose Level 91 MG/DL (74-106) Calcium Level 8.9 MG/DL (8.5-10.1) Phosphorus Level 3.2 MG/DL (2.5-4.9) Magnesium Level 2.0 MG/DL (1.8-2.4) Total Bilirubin 0.5 MG/DL (0.2-1.0) Aspartate Amino Transf (AST/SGOT) 16 U/L (15-37) Alanine Aminotransferase (ALT/SGPT) 27 U/L (12-78) Alkaline Phosphatase 98 U/L (46-116) Total Protein 6.1 G/DL (6.4-8.2) L Albumin 2.8 G/DL (3.4-5.0) L Globulin 3.3 g/dL Albumin/Globulin Ratio 0.8 (1.0-2.7) L Plan Problems: (1) Pneumonia (2) Staphylococcus aureus bacteremia (3) COVID-19 virus infection (4) Chest pain (5) Hypertension (6) Dehydration (7) Electrolyte imbalance (8) DMII (diabetes mellitus, type 2) (9) Protein malnutrition (10) Respiratory insufficiency Assessment & Plan: 64-year-old male with respiratory insufficiency intubated in an intensive care unit. Patient has been unable to safely wean off ventilatory support. Surgery called to evaluate for tracheostomy. After careful evaluation patient is a candidate for tracheostomy. In the meantime will obtain consent. If consent obtained will proceed with scheduling. Thank you for your participation's care will follow recommendations improving trach okay agitated weaning sedation no n/v cont weaning transition to oral meds via g tube get off drips improving downgraded weaning well more alert and awake responsive will need placement trach collar consideration Booker Rausch May 06, 2020 10:33
--- NOTE | 2020-05-06 11:22 | Pulmonology Progress Note ---
Subjective ROS Limited/Unobtainable: No Interval Events: S/p tracheostomy 04/25/20 Constitutional: Reports: fever, fatigue, other - + trach and vent HEENT: Repors: no symptoms Respiratory: Reports: dry cough, shortness of breath Cardiovascular: Reports: no symptoms Gastrointestinal/Abdominal: Reports: diarrhea; Denies: nausea, vomiting Psychiatric: Reports: other - Na Skin: Denies: rash Musculoskeletal: Denies: pain Allergies: Coded Allergies: No Known Allergies (Unverified , 02/05/20) Objective Last 24 Hour Vital Signs Date Time Temp Pulse Resp B/P (MAP) Pulse Ox O2 Delivery O2 Flow Rate FiO2 05/06/20 09:22 90 22 130/80 96 05/06/20 09:11 81 23 45 05/06/20 08:52 68 127/71 05/06/20 08:52 68 23 127/67 96 05/06/20 08:00 45 05/06/20 08:00 79 05/06/20 08:00 Mechanical Ventilator 05/06/20 08:00 98.2 85 23 127/80 (96) 97 05/06/20 07:07 85 23 45 05/06/20 05:07 88 23 45 05/06/20 04:00 45 05/06/20 04:00 Mechanical Ventilator 05/06/20 04:00 89 05/06/20 04:00 98.4 98 148/84 (105) 05/06/20 03:18 86 23 45 05/06/20 00:56 98 27 45 05/06/20 00:00 45 05/06/20 00:00 98.5 98 29 122/83 (96) 96 05/06/20 00:00 Mechanical Ventilator 05/06/20 00:00 98 05/05/20 23:10 105 27 45 05/05/20 21:04 97 28 45 05/05/20 20:00 45 05/05/20 20:00 98.4 100 29 146/83 (104) 97 05/05/20 20:00 89 05/05/20 20:00 Mechanical Ventilator 05/05/20 19:45 89 22 98 05/05/20 19:30 88 23 146/88 (107) 99 05/05/20 19:19 94 26 45 05/05/20 19:15 88 23 135/85 (102) 98 05/05/20 19:03 86 23 150/77 100 05/05/20 19:00 91 24 150/77 (101) 98 05/05/20 18:45 94 27 130/87 (101) 97 05/05/20 18:30 101 29 152/84 (106) 97 05/05/20 18:15 96 27 144/93 (110) 97 05/05/20 18:00 104 29 138/72 (94) 98 05/05/20 18:00 94 26 138/72 (94) 98 05/05/20 17:56 96 149/99 05/05/20 17:56 96 24 149/99 98 05/05/20 17:00 99 28 131/73 (92) 97 05/05/20 16:00 92 05/05/20 16:00 Mechanical Ventilator 05/05/20 16:00 45 05/05/20 16:00 98.4 103 29 142/64 (90) 97 05/05/20 15:00 110 24 163/86 (111) 96 05/05/20 14:00 107 28 168/94 (118) 96 05/05/20 13:41 103 24 45 05/05/20 13:00 97 25 142/76 (98) 97 05/05/20 12:37 97 26 152/82 96 05/05/20 12:05 113 24 153/93 93 05/05/20 12:00 Mechanical Ventilator 05/05/20 12:00 99.9 112 21 153/93 (113) 94 05/05/20 12:00 109 05/05/20 12:00 45 Intake and Output 05/05/20 05/06/20 19:00 07:00 Intake Total 740 ml 740 ml Output Total 830 ml 1250 ml Balance -90 ml -510 ml Free Water 190 ml 240 ml Tube Feeding 530 ml 500 ml Other 20 ml Output Urine Total 830 ml 1250 ml General Appearance: WD/WN, no acute distress HEENT: normocephalic, atraumatic, status post trach Respiratory: chest wall non-tender Cardiovascular: normal rate, regular rhythm Abdomen: normal bowel sounds, soft, non tender, other - obese Laboratory Tests 05/06/20 05:55: White Blood Count 8.8, Red Blood Count 3.64L, Hemoglobin 10.5L, Hematocrit 33.3L , Mean Corpuscular Volume 91, Mean Corpuscular Hemoglobin 28.8, Mean Corpuscular Hemoglobin Concent 31.6L, Red Cell Distribution Width 16.4H, Platelet Count 286, Mean Platelet Volume 6.4L, Neutrophils (%) (Auto) 81.9H, Lymphocytes (%) (Auto) 12.9L, Monocytes (%) (Auto) 4.2, Eosinophils (%) (Auto) 0.1, Basophils (%) (Auto) 0.9, Sodium Level 140, Potassium Level 3.9, Chloride Level 102, Carbon Dioxide Level 32, Anion Gap 6, Blood Urea Nitrogen 15, Creatinine 0.4L, Estimat Glomerular Filtration Rate > 60, Glucose Level 91, Calcium Level 8.9, Phosphorus Level 3.2, Magnesium Level 2.0, Total Bilirubin 0.5, Aspartate Amino Transf (AST/SGOT) 16, Alanine Aminotransferase (ALT/SGPT) 27, Alkaline Phosphatase 98, Total Protein 6.1L, Albumin 2.8L, Globulin 3.3, Albumin/Globulin Ratio 0.8L Current Medications Medications (Trade) Dose Ordered Sig/Dennis Route PRN Reason Start Time Stop Time Status Last Admin Dose Admin Acetaminophen (Tylenol) 650 mg Q4H PRN GT Mild Pain (Pain Scale 1-3) 05/02/20 08:45 06/01/20 08:44 05/02/20 09:04 Acetaminophen/ Hydrocodone Bitart ([place] 5/325) 1 tab Q4H GT 05/02/20 11:00 05/09/20 10:59 05/06/20 06:29 Amlodipine Besylate (Norvasc) 2.5 mg BID GT 05/02/20 18:00 06/02/20 08:59 05/06/20 08:52 Chlorhexidine Gluconate (Marlen-Hex 2%) 1 applic DAILY@1999 TOPIC 03/30/20 20:00 06/28/20 19:59 05/05/20 20:30 Dextrose (Dextrose 50%) 25 ml Q30M PRN IV Hypoglycemia 03/29/20 20:45 06/27/20 20:44 Dextrose (Dextrose 50%) 50 ml Q30M PRN IV Hypoglycemia 03/29/20 20:45 06/27/20 20:44 Enoxaparin Sodium (Lovenox) 80 mg EVERY 12 HOURS SUBQ 04/06/20 21:00 07/05/20 20:59 05/06/20 08:51 Famotidine (Pepcid I.v.) 20 mg Q12HR PRN IVP HEART BURN 05/02/20 15:15 06/01/20 15:14 05/02/20 22:10 Fluconazole (Diflucan) 100 mg DAILY ORAL 05/06/20 09:00 05/13/20 08:59 05/06/20 08:52 Furosemide (Lasix) 20 mg DAILY IV 05/05/20 20:00 05/08/20 09:00 05/06/20 08:53 Hydralazine HCl (Apresoline) 10 mg Q4H PRN IV For High Blood Pressure 03/30/20 12:15 06/28/20 12:14 05/02/20 21:07 Insulin Aspart (NovoLOG) Q6HR SUBQ 03/30/20 00:00 06/28/20 00:00 05/01/20 18:00 Lansoprazole (Prevacid) 30 mg DAILY GT 05/02/20 09:00 06/01/20 08:59 05/06/20 08:52 Lorazepam (Ativan) 1 mg THREE TIMES A DAY ORAL 05/01/20 13:00 05/08/20 12:59 05/06/20 08:52 Prednisone (predniSONE) 10 mg DAILY ORAL 05/06/20 09:00 06/05/20 08:59 05/06/20 08:51 Quetiapine Fumarate (SEROqueL) 50 mg EVERY 8 HOURS ORAL 04/29/20 12:00 06/11/20 11:59 05/06/20 06:29 Trimethoprim/ Sulfamethoxazole (Bactrim-DS) 1 tab DAILY ORAL 04/30/20 09:00 05/11/20 08:59 05/06/20 08:52 Assessment/Plan Assessment/Plan 1.COVID-19 pneumonia. - Completed specific therapies - On solumedrol 20 Iv q 12 - will add bactrim for PJP prophylaxis 2. DVT ppx - on lovenox 3. Hypertension - no longer on meds - Not requiring pressors 4. Leukocytosis; - ID following - Off abx - Candidemia documented 03/18/20 5. Elevated LFT - positive Hep C; treated in the past with IF 6. Respiratory failure -Intubated 03/28/20; s/p tracheostomy 04/25/20 -Gradually weaned off sedation IOV Has DVT; on full dose Lovenox Will wean down FiO2 as tolerated CXR shows bilateral interstitial changes? fibrosis? S/p PEG Off IV fluids Dc planning to subacute On seroquel 50 mg PO TID; On Ativan and [place] John Mata MD May 06, 2020 11:22
[2020-05-06 12:00] VITALS: BP 144/88
--- NOTE | 2020-05-06 14:21 | Nephrology Progress Note ---
Assessment/Plan Problem List: (1) Dehydration (2) Electrolyte imbalance (3) COVID-19 virus infection (4) Pneumonia (5) DMII (diabetes mellitus, type 2) (6) Protein malnutrition Assessment Azotemia, hypernatremia Hypoalbuminemia Staff Otilia bacteremia COVID-19 isolation, pneumonia, bilateral infiltrate Hypertension Diabetes mellitus History of smoking Plan May 06: Labs reviewed. Renal parameters stable. Continue per consultants. May 05: Labs reviewed. Renal parameters stable. Patient is due to be transferred to SCU. Continue per consultants. Medication list reviewed. May 04: Labs reviewed. Renal parameters stable. Overall status unchanged. Remains full code. Fed through GT tube. Trach to vent. FiO2 45%. Continue per consultants. May 03: No CHEM panel drawn today. Patient clinically stable. Has trach to vent and PEG. Will check lab tomorrow. May 02: Labs reviewed. Status quo. Patient is trached and vented. Also has PEG. Is full code. Stable from renal standpoint of view. May 01: Labs reviewed. Status quo. Patient has trach connected to vent. Has PEG. He is full code. FiO2 50%. April 30: Status quo. Labs reviewed. Renal parameters stable. Medication list reviewed. April 29: Status quo. Received PEG yesterday. Has trach connected to vent. FiO2 40%. Labs reviewed. Medication list reviewed. Continue same April 28: Status quo. Labs reviewed. Renal parameters stable. Patient n.p.o. due for PEG insertion. IV changed to D5 normal saline. Continue per consultants. April 27: Status quo. Labs reviewed. Medication list reviewed. Stable from renal standpoint of view. Abnormal electrolytes addressed. April 26: Patient is now trached and connected to vent. FiO2 70%. Labs reviewed. Renal parameters stable. Medication list reviewed. Continue per consultants. April 25: Status quo. Full code. FiO2 55%. No labs drawn today. Continue to monitor electrolytes and renal parameters. Continue per consultants. April 24: Status quo. Full code. Intubated on ventilator. FiO2 65%. Labs reviewed. Renal parameters and electrolytes stable. April 23: Status unchanged. Full code. Intubated on ventilator. FiO2 75%. Labs reviewed. Renal parameters stable. Continue per consultants. April 22: Labs reviewed. Patient remains intubated on ventilator and full c ode. FiO2 90%. Day 77 hospitalization. Not much to add from renal standpoint of view April 21: No CHEM panel drawn today. FiO2 60%. Patient full code. Continue per consultants. April 20: Labs reviewed. Renal parameters stable. Patient remains full code. Intubated on ventilator with FiO2 currently at 70%. Continue per consultants. April 19: No labs drawn today. Remains full code on FiO2 of 100%. Continue per consultants. April 18: Status quo. Labs reviewed. Renal parameters stable. April 17: Status quo. Intubated on ventilator. Full code. Labs reviewed. Electrolytes and renal parameters stable. Continue per consultants. April 16: Girlfriend in the room. Patient awake. Intubated. Full code. Labs reviewed. Abnormal electrolyte addressed. Continue per consultants. April 15: Labs reviewed. Electrolytes and renal parameters stable. Patient full code. Continues to be intubated on ventilator. April 14: Status quo. Labs reviewed. Remains intubated on ventilator. Full code. Continue per consultants. April 13: Status quo. Labs reviewed. Renal parameters electrolytes stable. Continue per current treatment plan. April 12: On higher FiO2. Will resume Lasix daily. Continue to monitor electrolytes and renal parameters. Per consultants. April 11: FiO2 went up to 85%. Renal parameters and electrolytes reasonably well-maintained. Will monitor serum potassium. Will give IV Lasix. April 10: Status quo. Labs reviewed. Remains intubated on ventilator with Fi O2 of 65%. Remains full code. Stable from renal standpoint to view. Repeat vitamin D level on April 08 pending April 09: Status quo. Labs reviewed. Stable from renal standpoint of view. Continue per consultants. April 08: Discussed with RN. Labs reviewed. Clinically improving. Requires lower PEEP. Continue per pulmonary. Continue to monitor renal parameters. April 07: Remains full code and on ventilator. Labs reviewed. Renal parameters and electrolytes stable. Continue per consultants. Blood pressure marginally improved. April 06: Full code. On ventilator. Blood pressure 80-90 systolic. IV Lasix discontinued. Free water through tube feeding ordered. Continue to monitor electrolytes and serum sodium. Down on fentanyl as possible. Discussed with PRIYANKA Brown. Clonidine patch discontinued. April 05: Status quo. Remains full code. Remains intubated. Labs reviewed. Renal parameters stable. Serum sodium 150 unchanged. Continue per consultants. April 04: Remains intubated and on ventilator. Remains full code. Labs reviewed. Serum sodium 150 unchanged. Renal parameters stable. Continue per ID and pulmonary. April 03: Intubated. On ventilator. Full code. Labs reviewed. Serum sodium 150 unchanged. Continue to monitor renal parameters. Continue per pulmonary and ID. April 02: Full code. On ventilator. Discussed with RN. Serum sodium slightl y higher. Will cut down on IV Lasix. Continue per consultants. Continue to monitor renal parameters and electrolytes. April 01: Full code. Remains on ventilator. Labs reviewed. Stable from renal standpoint of view. Continue per consultants. March 31: Full code . Remains intubated on ventilator. Labs reviewed. Patient appears toxic. Discussed with RN. Maintenance IV discontinued. Medication list reviewed. Blood pressure medication stopped due to low blood pressure. Levemir insulin stopped. Continue monitor blood sugar and sliding scale insulin. March 30: Full code. On ventilator. Labs reviewed. Clonidine patch dose increased. Lasix increased. 3% saline 1 time ordered. Continue to monitor electrolytes and renal parameters. March 29: Remains full code. On mechanical ventilation. On tube feeding. Will DC TPN. Will start on maintenance IV fluid. Continue to monitor renal parameters. March 28: On BiPAP. Full code. On TPN. Labs reviewed. Discussed with pharmacy. Continue as is. Watch serum potassium. March 27: Remains on BiPAP. No chemistry panel done today. Full code. On TPN. Will check lab tomorrow. March 26: Remains on BiPAP. Remains on TPN. Labs reviewed. Electrolytes and chemistries within normal limits. Continue as is. March 25: Remains on TPN. Labs reviewed. Discussed with pharmacy. Change IV Protonix to p.o. Continue 3% saline infusion with Lasix. Patient full code. March 24: Continue to be on TPN. Labs are reviewed. Aim to collect electrolytes. Discussed with pharmacy. Continue current consultants. March 23: Continues to be on TPN. Labs reviewed. Electrolytes and chemistries all acceptable. Discussed with pharmacy. Continue current management. March 22: On TPN. Labs reviewed. Low sodium noted. 3% saline to be continued. Continue to monitor electrolytes. Discussed with pharmacy. March 21: On TPN. Labs reviewed. Continue 3% saline and Lasix for mild hyponatremia. Continue TPN as these. Discussed with pharmacy. March 20: Remains on TPN. Labs reviewed. Serum sodium higher on IV Lasix and 3% saline infusion. Continue TPN as is. Continue to monitor renal parameters and electrolytes. Discussed with Dr. Mata March 19: Remains on TPN. Labs reviewed. Serum sodium 128. Will give 3% saline with IV Lasix. Continue to monitor electrolytes. No change in TPN composition. Discussed with pharmacy. March 18: Remains on TPN. Labs reviewed. Discussed with pharmacist. Will give 3 doses of IV Lasix 20 mg every 8 hours. Continue to monitor serum sodium electrolytes uric acid. White blood cells down. Continue per consultants. March 17: On TPN. Labs reviewed. Discussed with pharmacist. Sodium content increase. Continue to monitor CMP. Patient continues to have leukocytosis. March 16: On TPN. Labs reviewed. Discussed with pharmacist. Appropriate changes made. Continue to monitor electrolytes. March 15: Remains on TPN. Labs reviewed. Discussed with pharmacist. Continue per current management. March 14: Remains on TPN. Labs reviewed, stable. Vitamin D level low, replacement ordered. Continue to monitor electrolytes and renal parameters. March 13: Patient remains on TPN. Discussed with pharmacist. TPN's sodium content adjusted. Labs reviewed. Continue to monitor electrolytes. Blood pressure remains stable. Continue per consultants. March 12: Patient on TPN. Labs reviewed. CPK remains elevated. Abnormal electrolytes and high blood sugar discussed with pharmacist and TPN adjusted. Continue to monitor labs. Oral Protonix added. Ibuprofen discontinued. Can continue to monitor electrolytes and chemistries. Levemir for high blood sugar added. March 11: Patient on TPN. Labs as of 11:15 AM is still pending. Continue per current treatment plan. Will check labs and adjust TPN as needed. Continue per consultants. March 10: Patient on TPN. Labs reviewed. Electrolytes overall stable. CPK is elevated. Will monitor electrolyte, CPK level, lipid panel. Continue per consultants. Discussed with pharmacist. Discussed with RN. Nutritional evaluation noted. Previously: D5W 100 cc an hour Monitor electrolytes renal parameters TPN and Intralipid ordered Will follow Continue per consultants Dietary consult requested Subjective ROS Limited/Unobtainable: Yes Objective Objective Last 24 Hour Vital Signs Date Time Temp Pulse Resp B/P (MAP) Pulse Ox O2 Delivery O2 Flow Rate FiO2 05/06/20 13:50 84 22 45 05/06/20 13:00 84 22 144/88 99 05/06/20 12:00 45 05/06/20 12:00 Mechanical Ventilator 05/06/20 12:00 82 05/06/20 12:00 97.8 86 21 144/88 (106) 99 05/06/20 11:45 79 24 45 05/06/20 09:22 90 22 130/80 96 05/06/20 09:11 81 23 45 05/06/20 08:52 68 127/71 05/06/20 08:52 68 23 127/67 96 05/06/20 08:00 45 05/06/20 08:00 79 05/06/20 08:00 Mechanical Ventilator 05/06/20 08:00 98.2 85 23 127/80 (96) 97 05/06/20 07:07 85 23 45 05/06/20 05:07 88 23 45 05/06/20 04:00 45 05/06/20 04:00 Mechanical Ventilator 05/06/20 04:00 89 05/06/20 04:00 98.4 98 148/84 (105) 05/06/20 03:18 86 23 45 05/06/20 00:56 98 27 45 05/06/20 00:00 45 05/06/20 00:00 98.5 98 29 122/83 (96) 96 05/06/20 00:00 Mechanical Ventilator 05/06/20 00:00 98 05/05/20 23:10 105 27 45 05/05/20 21:04 97 28 45 05/05/20 20:00 45 05/05/20 20:00 98.4 100 29 146/83 (104) 97 05/05/20 20:00 89 05/05/20 20:00 Mechanical Ventilator 05/05/20 19:45 89 22 98 05/05/20 19:30 88 23 146/88 (107) 99 05/05/20 19:19 94 26 45 05/05/20 19:15 88 23 135/85 (102) 98 05/05/20 19:03 86 23 150/77 100 05/05/20 19:00 91 24 150/77 (101) 98 05/05/20 18:45 94 27 130/87 (101) 97 05/05/20 18:30 101 29 152/84 (106) 97 05/05/20 18:15 96 27 144/93 (110) 97 05/05/20 18:00 104 29 138/72 (94) 98 05/05/20 18:00 94 26 138/72 (94) 98 05/05/20 17:56 96 149/99 05/05/20 17:56 96 24 149/99 98 05/05/20 17:00 99 28 131/73 (92) 97 05/05/20 16:00 92 05/05/20 16:00 Mechanical Ventilator 05/05/20 16:00 45 05/05/20 16:00 98.4 103 29 142/64 (90) 97 05/05/20 15:00 110 24 163/86 (111) 96 Intake and Output 05/05/20 05/06/20 19:00 07:00 Intake Total 740 ml 740 ml Output Total 830 ml 1250 ml Balance -90 ml -510 ml Free Water 190 ml 240 ml Tube Feeding 530 ml 500 ml Other 20 ml Output Urine Total 830 ml 1250 ml Current Medications Medications (Trade) Dose Ordered Sig/Dennis Route PRN Reason Start Time Stop Time Status Last Admin Dose Admin Acetaminophen (Tylenol) 650 mg Q4H PRN GT Mild Pain (Pain Scale 1-3) 05/02/20 08:45 06/01/20 08:44 05/02/20 09:04 Acetaminophen/ Hydrocodone Bitart ([place] 5/325) 1 tab Q4H GT 05/02/20 11:00 05/09/20 10:59 05/06/20 14:10 Amlodipine Besylate (Norvasc) 2.5 mg BID GT 05/02/20 18:00 06/02/20 08:59 05/06/20 08:52 Chlorhexidine Gluconate (Marlen-Hex 2%) 1 applic DAILY@1999 TOPIC 03/30/20 20:00 06/28/20 19:59 05/05/20 20:30 Dextrose (Dextrose 50%) 25 ml Q30M PRN IV Hypoglycemia 03/29/20 20:45 06/27/20 20:44 Dextrose (Dextrose 50%) 50 ml Q30M PRN IV Hypoglycemia 03/29/20 20:45 06/27/20 20:44 Enoxaparin Sodium (Lovenox) 80 mg EVERY 12 HOURS SUBQ 04/06/20 21:00 07/05/20 20:59 05/06/20 08:51 Famotidine (Pepcid I.v.) 20 mg Q12HR PRN IVP HEART BURN 05/02/20 15:15 06/01/20 15:14 05/02/20 22:10 Fluconazole (Diflucan) 100 mg DAILY ORAL 05/06/20 09:00 05/13/20 08:59 05/06/20 08:52 Furosemide (Lasix) 20 mg DAILY IV 05/05/20 20:00 05/08/20 09:00 05/06/20 08:53 Hydralazine HCl (Apresoline) 10 mg Q4H PRN IV For High Blood Pressure 03/30/20 12:15 06/28/20 12:14 05/02/20 21:07 Insulin Aspart (NovoLOG) Q6HR SUBQ 03/30/20 00:00 06/28/20 00:00 05/01/20 18:00 Lansoprazole (Prevacid) 30 mg DAILY GT 05/02/20 09:00 06/01/20 08:59 05/06/20 08:52 Lorazepam (Ativan) 1 mg THREE TIMES A DAY ORAL 05/01/20 13:00 05/08/20 12:59 05/06/20 13:00 Prednisone (predniSONE) 10 mg DAILY ORAL 05/06/20 09:00 06/05/20 08:59 05/06/20 08:51 Quetiapine Fumarate (SEROqueL) 50 mg EVERY 8 HOURS ORAL 04/29/20 12:00 06/11/20 11:59 05/06/20 14:10 Trimethoprim/ Sulfamethoxazole (Bactrim-DS) 1 tab DAILY ORAL 04/30/20 09:00 05/11/20 08:59 05/06/20 08:52 Laboratory Tests 05/06/20 05:55: White Blood Count 8.8, Red Blood Count 3.64L, Hemoglobin 10.5L, Hematocrit 33.3L , Mean Corpuscular Volume 91, Mean Corpuscular Hemoglobin 28.8, Mean Corpuscular Hemoglobin Concent 31.6L, Red Cell Distribution Width 16.4H, Platelet Count 286, Mean Platelet Volume 6.4L, Neutrophils (%) (Auto) 81.9H, Lymphocytes (%) (Auto) 12.9L, Monocytes (%) (Auto) 4.2, Eosinophils (%) (Auto) 0.1, Basophils (%) (Aut o) 0.9, Sodium Level 140, Potassium Level 3.9, Chloride Level 102, Carbon Dioxide Level 32, Anion Gap 6, Blood Urea Nitrogen 15, Creatinine 0.4L, Estimat Glomerular Filtration Rate > 60, Glucose Level 91, Calcium Level 8.9, Phosphorus Level 3.2, Magnesium Level 2.0, Total Bilirubin 0.5, Aspartate Amino Transf (AST/SGOT) 16, Alanine Aminotransferase (ALT/SGPT) 27, Alkaline Phosphatase 98, Total Protein 6.1L, Albumin 2.8L, Globulin 3.3, Albumin/Globulin Ratio 0.8L Height (Feet): 5 Height (Inches): 10.00 Weight (Pounds): 243 General Appearance: no apparent distress EENT: other - Trach to vent Cardiovascular: tachycardia Respiratory/Chest: decreased breath sounds Abdomen: distended, other - PEG Rubin Cooper MD May 06, 2020 14:21
[2020-05-06 16:00] VITALS: BP 136/72
--- NOTE | 2020-05-06 16:37 | Cardiology Progress Note ---
Assessment/Plan Problem List: (1) Hypertension (2) COVID-19 virus infection (3) Staphylococcus aureus bacteremia (4) Chest pain (5) Pneumonia Status: stable, unchanged Status Narrative Pt remains intubated, on 45% fio2 and s/p trach and g tube ECHOs have shown normal LV systolic function and no significant valve lesions Venous duplex of L arm shows acute L subclavian and axillary DVT. Pt now COVID negative Assessment/Plan Continue vent support, weaning as tolerated. IV steroids as per pulmonary, ID He is on iv lasix - monitor i/os, renal function closely Followup cxr in am. Subjective ROS Limited/Unobtainable: Yes Subjective Cardiology for Dr. Awan Sedated/ on vent Objective Last 24 Hour Vital Signs Date Time Temp Pulse Resp B/P (MAP) Pulse Ox O2 Delivery O2 Flow Rate FiO2 05/06/20 16:00 77 05/06/20 16:00 98.0 94 20 136/72 (93) 96 05/06/20 16:00 45 05/06/20 16:00 Mechanical Ventilator 05/06/20 15:54 74 20 45 05/06/20 13:50 84 22 45 05/06/20 13:30 78 23 136/84 98 05/06/20 13:00 84 22 144/88 99 05/06/20 12:00 45 05/06/20 12:00 Mechanical Ventilator 05/06/20 12:00 82 05/06/20 12:00 97.8 86 21 144/88 (106) 99 05/06/20 11:45 79 24 45 05/06/20 09:22 90 22 130/80 96 05/06/20 09:11 81 23 45 05/06/20 08:52 68 127/71 05/06/20 08:52 68 23 127/67 96 05/06/20 08:00 45 05/06/20 08:00 79 05/06/20 08:00 Mechanical Ventilator 05/06/20 08:00 98.2 85 23 127/80 (96) 97 05/06/20 07:07 85 23 45 05/06/20 05:07 88 23 45 05/06/20 04:00 45 05/06/20 04:00 Mechanical Ventilator 05/06/20 04:00 89 05/06/20 04:00 98.4 98 148/84 (105) 05/06/20 03:18 86 23 45 05/06/20 00:56 98 27 45 05/06/20 00:00 45 05/06/20 00:00 98.5 98 29 122/83 (96) 96 05/06/20 00:00 Mechanical Ventilator 05/06/20 00:00 98 05/05/20 23:10 105 27 45 05/05/20 21:04 97 28 45 05/05/20 20:00 45 05/05/20 20:00 98.4 100 29 146/83 (104) 97 05/05/20 20:00 89 05/05/20 20:00 Mechanical Ventilator 05/05/20 19:45 89 22 98 05/05/20 19:30 88 23 146/88 (107) 99 05/05/20 19:19 94 26 45 05/05/20 19:15 88 23 135/85 (102) 98 05/05/20 19:03 86 23 150/77 100 05/05/20 19:00 91 24 150/77 (101) 98 05/05/20 18:45 94 27 130/87 (101) 97 05/05/20 18:30 101 29 152/84 (106) 97 05/05/20 18:15 96 27 144/93 (110) 97 05/05/20 18:00 104 29 138/72 (94) 98 05/05/20 18:00 94 26 138/72 (94) 98 05/05/20 17:56 96 149/99 05/05/20 17:56 96 24 149/99 98 05/05/20 17:00 99 28 131/73 (92) 97 General Appearance: WD/WN, on vent - s/p trach, other Neck: supple, no JVD, other - trach Rhythm: NSR Cardiovascular: normal rate, regular rhythm, no gallop/murmur Respiratory/Chest: other - coarse BS bilat Abdomen: non tender, soft, other - + g tube Extremities: no swelling Pulses: normal: DP (L), DP (R) Intake and Output 05/05/20 05/06/20 19:00 07:00 Intake Total 740 ml 740 ml Output Total 830 ml 1250 ml Balance -90 ml -510 ml Free Water 190 ml 240 ml Tube Feeding 530 ml 500 ml Other 20 ml Output Urine Total 830 ml 1250 ml Laboratory Tests Test 05/06/20 05:55 White Blood Count 8.8 K/UL (4.8-10.8) Red Blood Count 3.64 M/UL (4.70-6.10) L Hemoglobin 10.5 G/DL (14.2-18.0) L Hematocrit 33.3 % (42.0-52.0) L Mean Corpuscular Volume 91 FL (80-99) Mean Corpuscular Hemoglobin 28.8 PG (27.0-31.0) Mean Corpuscular Hemoglobin Concent 31.6 G/DL (32.0-36.0) L Red Cell Distribution Width 16.4 % (11.6-14.8) H Platelet Count 286 K/UL (150-450) Mean Platelet Volume 6.4 FL (6.5-10.1) L Neutrophils (%) (Auto) 81.9 % (45.0-75.0) H Lymphocytes (%) (Auto) 12.9 % (20.0-45.0) L Monocytes (%) (Auto) 4.2 % (1.0-10.0) Eosinophils (%) (Auto) 0.1 % (0.0-3.0) Basophils (%) (Auto) 0.9 % (0.0-2.0) Sodium Level 140 MMOL/L (136-145) Potassium Level 3.9 MMOL/L (3.5-5.1) Chloride Level 102 MMOL/L (98-107) Carbon Dioxide Level 32 MMOL/L (21-32) Anion Gap 6 mmol/L (5-15) Blood Urea Nitrogen 15 mg/dL (7-18) Creatinine 0.4 MG/DL (0.55-1.30) L Estimat Glomerular Filtration Rate > 60 mL/min (>60) Glucose Level 91 MG/DL (74-106) Calcium Level 8.9 MG/DL (8.5-10.1) Phosphorus Level 3.2 MG/DL (2.5-4.9) Magnesium Level 2.0 MG/DL (1.8-2.4) Total Bilirubin 0.5 MG/DL (0.2-1.0) Aspartate Amino Transf (AST/SGOT) 16 U/L (15-37) Alanine Aminotransferase (ALT/SGPT) 27 U/L (12-78) Alkaline Phosphatase 98 U/L (46-116) Total Protein 6.1 G/DL (6.4-8.2) L Albumin 2.8 G/DL (3.4-5.0) L Globulin 3.3 g/dL Albumin/Globulin Ratio 0.8 (1.0-2.7) L Lily Rene MD May 06, 2020 16:37
--- NOTE | 2020-05-06 19:05 | NUR ---
NURSE HAND-OFF REPORT: Important Events on Shift:NA Patient Status: Stable Diet: Glucerna 1.5 @50ml/hr Pending Orders: NA Pending Results/Labs:NA Pending notification:NA Latest Vital Signs: Temperature 98.0 , Pulse 75 , B/P 134 /74 , Respiratory Rate 23 , O2 SAT 97 , Mechanical Ventilator, O2 Flow Rate . Vital Sign Comment: Stable EKG Rhythm: Sinus Rhythm Rhythm change?: N MD Notified?: N -Dr.Toluie INTERIANO Response: Message left await call Latest Hassan Fall Score: 35 Fall Risk: Medium Risk Safety Measures: Call light Within Reach, Bed Alarm Zone 1, Side Rails Side Rails x3, Bed position Low and Locked. Fall Precautions: Yellow Socks Yellow Gown Door Sign Patient Fall Education Report given to PRIYANKA Jensen.
--- NOTE | 2020-05-06 19:10 | NUR ---
NURSE NOTES: Report received from PRIYANKA Clarke. Patient is asleep in stable condition, alert and oriented x 0, non-verbal because of his tracheostomy but able to follow simple commands. residential monitor is in place, shows sinus rhythm. With tracheostomy to ventilator, AC 18, TV 750, Fi02 45%, Peep 5 saturating 97-98% at this time. With g-tube, on Glucerna 1.5 @ 50cc/hour. With rectal tube and joseph catheter in place, draining light jeff color urine output. With ALBERT double lumen PICC line that is patent and intact. Aspiration precaution maintained and observed. Safety measures are in place, bed in lowest and locked position, side rails up x 2, will continue plan of care.
[2020-05-06 20:00] VITALS: BP 114/65
[2020-05-06] MEDS: Dyna-Hex 2% Top Sol 2oz TOPIC SCH (20:38)
--- NOTE | 2020-05-06 21:02 | NUR ---
NURSE NOTES: Initial assessments done, suctioned secretions on trache and oral, noted whitish thick secretions and no desaturation noted. Will continue to monitor.
[2020-05-07] VITALS: BP 146/83
--- NOTE | 2020-05-07 00:03 | NUR ---
NURSE NOTES: Blood sugar done, results within normal limits. Will continue to monitor.
--- NOTE | 2020-05-07 01:54 | NUR ---
NURSE NOTES: Repositioned on his left side, Glucerna 1.5 @ 50cc/hour continuously running, flushing of 30cc done, no residual noted.
[2020-05-07] MEDS: HYDROcodone/Acetamin 5/325 tab GT SCH ×6 (03:00→23:12)
--- NOTE | 2020-05-07 03:05 | NUR ---
NURSE NOTES: Patient has been saturating 99-100% on Fi02 of 45%, RT "Anurag" is at bed side at this time and discussed if we could titrated down to 40% Fi02. Change the current settings to fi02 40%, will closely monitor for any symptoms of distress.
[2020-05-07 04:00] VITALS: BP 145/84
--- NOTE | 2020-05-07 04:40 | NUR ---
NURSE NOTES: Bed bath done, oral care provided, cleansed and changed the dressing over the sacral area. Repositioned on his right side, suctioned secretions on his trach and oral, no desaturation noted.
[2020-05-07] MEDS: NovoLOG Insulin Flexpen SUBQ SCH ×4 (05:19→23:53)
--- NOTE | 2020-05-07 07:24 | NUR ---
NURSE HAND-OFF REPORT: Important Events on Shift: Patient has been saturating 98-100% on Fi02 45, titrated down to 40% and patient has been saturating 93-95%, but noted that his HR increased to low 110's. Patient Status: Patient is awake on bed in stable condition. Plan of care endorsed. Diet: Glucerna 1.5 @ 50cc/hour, with prosource BID Pending Orders: none Pending Results/Labs:none Pending MD notification:none Latest Vital Signs: Temperature 98.1 , Pulse 106 , B/P 145 /84 , Respiratory Rate 25 , O2 SAT 93 , Mechanical Ventilator, O2 Flow Rate . Vital Sign Comment:stable EKG Rhythm: Sinus Rhythm Rhythm change?: N MD Notified?: N -Dr.Toluie INTERIANO Response: Message left await call Latest Hassan Fall Score: 35 Fall Risk: Medium Risk Safety Measures: Call light Within Reach, Bed Alarm Zone 1, Side Rails Side Rails x3, Bed position Low and Locked. Fall Precautions: Yellow Socks Yellow Gown Door Sign Patient Fall Education Report given to PRIYANKA Koroma.
--- NOTE | 2020-05-07 07:30 | NUR ---
NURSE NOTES: Report received from PRIYANKA Jensen. Patient is awake and alert, non-verbal because of his tracheostomy but able to follow simple commands and is using the letter board to spell needs. monitor technician shows sinus rhythm. Resp: tracheostomy to ventilator, AC 18, TV 750, Fi02 45%, Peep 5 saturating 97-98% at this time. G tube noted on Glucerna 1.5 @ 50cc/hour. With rectal tube and joseph catheter in place, draining light jeff color urine output. ALBERT double lumen PICC line that is patent and intact. Aspiration precaution maintained and observed. Safety measures are in place, bed in lowest and locked position, side rails up x 2, will continue plan of care.
[2020-05-07 08:00] VITALS: BP 145/84
[2020-05-07] MEDS: Bactrim-DS 1 tab ORAL SCH (08:23)
[2020-05-07] MEDS: Fluconazole 100mg tab ORAL SCH (08:23)
[2020-05-07] MEDS: LORazepam 1mg tab ORAL SCH ×3 (08:23→18:00)
[2020-05-07] MEDS: Enoxaparin 80mg Inj SUBQ SCH ×2 (08:25→20:15)
--- NOTE | 2020-05-07 09:00 | NUR ---
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 * Inadequate oral intake R/T clinical and respiratory status as evidenced by COVID-19 ++, on continuous BIPAP, prolonged meal refusals, pt is now on TPN, pt orally intubated (03/28), s/p trach placement (04/26), and s/p PEG placement (04/27), now on GT feeds. * Decreased sodium and fat needs r/t HTN and obesity as evidenced by pt w/ cardiac history, elev BP (159/98-> now improved, on BP meds and diuretics), BMI >30, obese per guidelines. (INACTIVE) ENTERAL NUTRITION RECOMMENDATIONS: Glucerna 1.5 @ 50ml/hr x 24 hrs + Prosource 1pkt BID to provide 1200ml, 1800kcal, 99g +22g prot (121g total prot), 926ml free water * Maintain current TF order * Con't Prosource 1pkt BID (additional 22g prot) to better meet est prot needs. ADDITIONAL RECOMMENDATIONS: 1) Maintain calibrated bedscale wts 2) Monitor BGs closely w/ Solumedrol (POC glu wnl at this time) 3) Monitor lytes, replete as needed 4) Monitor TF tolerance: PEG placed 04/28, cont to increase TF to goal as tolerated 5) Wound healing: Add Michael BID (mix w/ 2-4oz of water) TF @ goal provides 100% RDI, add Vit C 500mg QD, ZnSO4 220mg [id number]
--- NOTE | 2020-05-07 09:26 | Pulmonology Progress Note ---
Subjective ROS Limited/Unobtainable: Yes Interval Events: S/p tracheostomy 04/25/20 Constitutional: Reports: fever, fatigue, other - + trach and vent HEENT: Repors: no symptoms Respiratory: Reports: dry cough, shortness of breath Cardiovascular: Reports: no symptoms Gastrointestinal/Abdominal: Reports: diarrhea; Denies: nausea, vomiting Psychiatric: Reports: other - Na Skin: Denies: rash Musculoskeletal: Denies: pain Allergies: Coded Allergies: No Known Allergies (Unverified , 02/05/20) Objective Last 24 Hour Vital Signs Date Time Temp Pulse Resp B/P (MAP) Pulse Ox O2 Delivery O2 Flow Rate FiO2 05/07/20 08:24 102 142/95 05/07/20 08:23 105 25 142/95 95 05/07/20 08:00 105 05/07/20 08:00 98.1 104 31 145/84 (104) 93 05/07/20 07:20 106 25 40 05/07/20 04:00 99 05/07/20 04:00 98.1 104 31 145/84 (104) 93 05/07/20 04:00 Mechanical Ventilator 05/07/20 04:00 40 05/07/20 03:13 102 26 40 05/07/20 00:00 97.3 108 27 146/83 (104) 95 05/07/20 00:00 100 05/07/20 00:00 Mechanical Ventilator 05/06/20 23:19 105 25 45 05/06/20 20:00 Mechanical Ventilator 05/06/20 20:00 45 05/06/20 20:00 76 05/06/20 20:00 98.4 80 24 114/65 (81) 97 05/06/20 19:08 75 23 45 05/06/20 18:34 76 24 134/74 97 05/06/20 18:04 80 136/72 05/06/20 18:04 86 25 136/72 96 05/06/20 17:09 80 25 45 05/06/20 16:00 77 05/06/20 16:00 98.0 94 20 136/72 (93) 96 05/06/20 16:00 45 05/06/20 16:00 Mechanical Ventilator 05/06/20 15:54 74 20 45 05/06/20 13:50 84 22 45 05/06/20 13:30 78 23 136/84 98 05/06/20 13:00 84 22 144/88 99 05/06/20 12:00 45 05/06/20 12:00 Mechanical Ventilator 05/06/20 12:00 82 05/06/20 12:00 97.8 86 21 144/88 (106) 99 05/06/20 11:45 79 24 45 Intake and Output 05/06/20 05/07/20 19:00 07:00 Intake Total 1000 ml 700 ml Output Total 400 ml 1100 ml Balance 600 ml -400 ml Free Water 400 ml 90 ml Tube Feeding 600 ml 550 ml Other 60 ml Output Urine Total 400 ml 1100 ml General Appearance: WD/WN, no acute distress HEENT: normocephalic, atraumatic, status post trach Respiratory: chest wall non-tender Cardiovascular: normal rate, regular rhythm Abdomen: normal bowel sounds, soft, non tender, other - obese Laboratory Tests 05/06/20 23:48: POC Whole Blood Glucose 111H 05/07/20 05:19: POC Whole Blood Glucose 92 Current Medications Medications (Trade) Dose Ordered Sig/Dennis Route PRN Reason Start Time Stop Time Status Last Admin Dose Admin Acetaminophen (Tylenol) 650 mg Q4H PRN GT Mild Pain (Pain Scale 1-3) 05/02/20 08:45 06/01/20 08:44 05/02/20 09:04 Acetaminophen/ Hydrocodone Bitart ([place] 5/325) 1 tab Q4H GT 05/02/20 11:00 05/09/20 10:59 05/07/20 06:40 Amlodipine Besylate (Norvasc) 2.5 mg BID GT 05/02/20 18:00 06/02/20 08:59 05/07/20 08:24 Chlorhexidine Gluconate (Marlen-Hex 2%) 1 applic DAILY@2000 TOPIC 03/30/20 20:00 06/28/20 19:59 05/06/20 20:38 Dextrose (Dextrose 50%) 25 ml Q30M PRN IV Hypoglycemia 03/29/20 20:45 06/27/20 20:44 Dextrose (Dextrose 50%) 50 ml Q30M PRN IV Hypoglycemia 03/29/20 20:45 06/27/20 20:44 Enoxaparin Sodium (Lovenox) 80 mg EVERY 12 HOURS SUBQ 04/06/20 21:00 5/5/21 20:59 05/07/20 08:25 Famotidine (Pepcid I.v.) 20 mg Q12HR PRN IVP HEART BURN 05/02/20 15:15 06/01/20 15:14 05/02/20 22:10 Fluconazole (Diflucan) 100 mg DAILY ORAL 05/06/20 09:00 05/13/20 08:59 05/07/20 08:23 Furosemide (Lasix) 20 mg DAILY IV 05/05/20 20:00 05/08/20 09:00 05/07/20 08:24 Hydralazine HCl (Apresoline) 10 mg Q4H PRN IV For High Blood Pressure 03/30/20 12:15 06/28/20 12:14 05/02/20 21:07 Insulin Aspart (NovoLOG) Q6HR SUBQ 03/30/20 00:00 06/28/20 00:00 05/01/20 18:00 Lansoprazole (Prevacid) 30 mg DAILY GT 05/02/20 09:00 06/01/20 08:59 05/07/20 08:23 Lorazepam (Ativan) 1 mg THREE TIMES A DAY ORAL 05/01/20 13:00 05/08/20 12:59 05/07/20 08:23 Prednisone (predniSONE) 10 mg DAILY ORAL 05/06/20 09:00 06/05/20 08:59 05/07/20 08:24 Quetiapine Fumarate (SEROqueL) 50 mg EVERY 8 HOURS ORAL 04/29/20 12:00 06/11/20 11:59 05/07/20 05:19 Trimethoprim/ Sulfamethoxazole (Bactrim-DS) 1 tab DAILY ORAL 04/30/20 09:00 05/11/20 08:59 05/07/20 08:23 Assessment/Plan Assessment/Plan 1.COVID-19 pneumonia. - Completed specific therapies - On solumedrol 20 Iv q 12 - will add bactrim for PJP prophylaxis 2. DVT ppx - on lovenox 3. Hypertension - no longer on meds - Not requiring pressors 4. Leukocytosis; - ID following - Off abx - Candidemia documented 03/18/20 5. Elevated LFT - positive Hep C; treated in the past with IF 6. Respiratory failure -Intubated 03/28/20; s/p tracheostomy 04/25/20 -Gradually weaned off sedation IOV Has DVT; on full dose Lovenox Will wean down FiO2 as tolerated CXR shows bilateral interstitial changes? fibrosis? S/p PEG Off IV fluids Dc planning to subacute On seroquel 50 mg PO TID; On Ativan and Ogallah John Mata MD May 07, 2020 09:25
--- NOTE | 2020-05-07 09:34 | General Progress Note ---
Subjective ROS Limited/Unobtainable: No Allergies: Coded Allergies: No Known Allergies (Unverified , 02/05/20) Objective Last 24 Hour Vital Signs Date Time Temp Pulse Resp B/P (MAP) Pulse Ox O2 Delivery O2 Flow Rate FiO2 05/07/20 08:24 102 142/95 05/07/20 08:23 105 25 142/95 95 05/07/20 08:00 105 05/07/20 08:00 98.1 104 31 145/84 (104) 93 05/07/20 07:20 106 25 40 05/07/20 04:00 99 05/07/20 04:00 98.1 104 31 145/84 (104) 93 05/07/20 04:00 Mechanical Ventilator 05/07/20 04:00 40 05/07/20 03:13 102 26 40 05/07/20 00:00 97.3 108 27 146/83 (104) 95 05/07/20 00:00 100 05/07/20 00:00 Mechanical Ventilator 05/06/20 23:19 105 25 45 05/06/20 20:00 Mechanical Ventilator 05/06/20 20:00 45 05/06/20 20:00 76 05/06/20 20:00 98.4 80 24 114/65 (81) 97 05/06/20 19:08 75 23 45 05/06/20 18:34 76 24 134/74 97 05/06/20 18:04 80 136/72 05/06/20 18:04 86 25 136/72 96 05/06/20 17:09 80 25 45 05/06/20 16:00 77 05/06/20 16:00 98.0 94 20 136/72 (93) 96 05/06/20 16:00 45 05/06/20 16:00 Mechanical Ventilator 05/06/20 15:54 74 20 45 05/06/20 13:50 84 22 45 05/06/20 13:30 78 23 136/84 98 05/06/20 13:00 84 22 144/88 99 05/06/20 12:00 45 05/06/20 12:00 Mechanical Ventilator 05/06/20 12:00 82 05/06/20 12:00 97.8 86 21 144/88 (106) 99 05/06/20 11:45 79 24 45 Intake and Output 05/06/20 05/07/20 19:00 07:00 Intake Total 1000 ml 700 ml Output Total 400 ml 1100 ml Balance 600 ml -400 ml Free Water 400 ml 90 ml Tube Feeding 600 ml 550 ml Other 60 ml Output Urine Total 400 ml 1100 ml Laboratory Tests 05/06/20 23:48: POC Whole Blood Glucose 111H 05/07/20 05:19: POC Whole Blood Glucose 92 Height (Feet): 5 Height (Inches): 10.00 Weight (Pounds): 243 General Appearance: no apparent distress EENT: normal ENT inspection Neck: supple Cardiovascular: normal rate Respiratory/Chest: decreased breath sounds Abdomen: normal bowel sounds, non tender, soft Extremities: non-tender Assessment/Plan Status: stable, unchanged Assessment/Plan: hep c + but neg RNA GTF reglan 10 mg tolerating TF repeat labs fu LFTS>>>improving pepcid iv will fu Da Quintero MD May 07, 2020 09:34
--- NOTE | 2020-05-07 10:57 | Surgery Progress Note ---
Surgery Progress Note Subjective Procedure Performed tracheostomy Symptoms: improved Objective Last 24 Hour Vital Signs Date Time Temp Pulse Resp B/P (MAP) Pulse Ox O2 Delivery O2 Flow Rate FiO2 05/07/20 08:53 102 25 142/95 95 05/07/20 08:24 102 142/95 05/07/20 08:23 105 25 142/95 95 05/07/20 08:00 105 05/07/20 08:00 Mechanical Ventilator 05/07/20 08:00 40 05/07/20 08:00 98.1 104 31 145/84 (104) 93 05/07/20 07:20 106 25 40 05/07/20 04:00 99 05/07/20 04:00 98.1 104 31 145/84 (104) 93 05/07/20 04:00 Mechanical Ventilator 05/07/20 04:00 40 05/07/20 03:13 102 26 40 05/07/20 00:00 97.3 108 27 146/83 (104) 95 05/07/20 00:00 100 05/07/20 00:00 Mechanical Ventilator 05/06/20 23:19 105 25 45 05/06/20 20:00 Mechanical Ventilator 05/06/20 20:00 45 05/06/20 20:00 76 05/06/20 20:00 98.4 80 24 114/65 (81) 97 05/06/20 19:08 75 23 45 05/06/20 18:34 76 24 134/74 97 05/06/20 18:04 80 136/72 05/06/20 18:04 86 25 136/72 96 05/06/20 17:09 80 25 45 05/06/20 16:00 77 05/06/20 16:00 98.0 94 20 136/72 (93) 96 05/06/20 16:00 45 05/06/20 16:00 Mechanical Ventilator 05/06/20 15:54 74 20 45 05/06/20 13:50 84 22 45 05/06/20 13:30 78 23 136/84 98 05/06/20 13:00 84 22 144/88 99 05/06/20 12:00 45 05/06/20 12:00 Mechanical Ventilator 05/06/20 12:00 82 05/06/20 12:00 97.8 86 21 144/88 (106) 99 05/06/20 11:45 79 24 45 I&O Intake and Output 05/06/20 05/07/20 19:00 07:00 Intake Total 1000 ml 700 ml Output Total 400 ml 1100 ml Balance 600 ml -400 ml Free Water 400 ml 90 ml Tube Feeding 600 ml 550 ml Other 60 ml Output Urine Total 400 ml 1100 ml Dressing: saturated Cardiovascular: RSR Respiratory: clear, decreased breath sounds Abdomen: soft, non-tender, present bowel sounds, non-distended Extremities: no edema, no tenderness, no cyanosis Laboratory Tests Test 05/06/20 23:48 05/07/20 05:19 POC Whole Blood Glucose 111 MG/DL (74-106) H 92 MG/DL (74-106) Plan Problems: (1) Pneumonia (2) Staphylococcus aureus bacteremia (3) COVID-19 virus infection (4) Chest pain (5) Hypertension (6) Dehydration (7) Electrolyte imbalance (8) DMII (diabetes mellitus, type 2) (9) Protein malnutrition (10) Respiratory insufficiency Assessment & Plan: 64-year-old male with respiratory insufficiency intubated in an intensive care unit. Patient has been unable to safely wean off ventilatory support. Surgery called to evaluate for tracheostomy. After careful evaluation patient is a candidate for tracheostomy. In the meantime will obtain consent. If consent obtained will proceed with scheduling. Thank you for your participation's care will follow recommendations improving trach okay agitated weaning sedation no n/v cont weaning transition to oral meds via g tube get off drips improving downgraded weaning well more alert and awake responsive will need placement trach collar consideration Booker Rausch May 07, 2020 10:57
[2020-05-07 11:07] VITALS: BP 125/81
--- NOTE | 2020-05-07 12:34 | NUR ---
CASE MANAGEMENT:REVIEW 05/07/20 SI: RESPIRATORY FAILURE. COVID PNA S/P TRACH AND PEG 98.1 107 31 125/81 93% ON VENT SUPPORT W/45% FIO2 GLUCOSE+136 IS: DIFLUCAN GT QD PREDNISONE GT QD IV LASIX QD NORVASC GT BID PREVACID GT QD BACTRIM GT QD SEROQUEL GT Q8HRS LOVENOX SQ Q12 : STEP DOWN UNIT DCP: NEEDS SUBACUTE PLACEMENT PLAN: DISCHARGE ONCE FIO2 IS 40% OR LESS
[2020-05-07 16:00] VITALS: BP 142/87
--- NOTE | 2020-05-07 16:24 | Nephrology Progress Note ---
Assessment/Plan Problem List: (1) Dehydration (2) Electrolyte imbalance (3) COVID-19 virus infection (4) Pneumonia (5) DMII (diabetes mellitus, type 2) (6) Protein malnutrition Assessment Azotemia, hypernatremia Hypoalbuminemia Staff Otilia bacteremia COVID-19 isolation, pneumonia, bilateral infiltrate Hypertension Diabetes mellitus History of smoking Plan May 07: No labs drawn today reviewed. Clinically stable. Medication list r eviewed. Will check lab tomorrow. Continue per consultants. May 06: Labs reviewed. Renal parameters stable. Continue per consultants. May 05: Labs reviewed. Renal parameters stable. Patient is due to be transferred to [facility]. Continue per consultants. Medication list reviewed. May 04: Labs reviewed. Renal parameters stable. Overall status unchanged. Remains full code. Fed through GT tube. Trach to vent. FiO2 45%. Continue per consultants. May 03: No CHEM panel drawn today. Patient clinically stable. Has trach to vent and PEG. Will check lab tomorrow. May 02: Labs reviewed. Status quo. Patient is trached and vented. Also has PEG. Is full code. Stable from renal standpoint of view. May 01: Labs reviewed. Status quo. Patient has trach connected to vent. Has PEG. He is full code. FiO2 50%. April 30: Status quo. Labs reviewed. Renal parameters stable. Medication list reviewed. April 29: Status quo. Received PEG yesterday. Has trach connected to vent. FiO2 40%. Labs reviewed. Medication list reviewed. Continue same April 28: Status quo. Labs reviewed. Renal parameters stable. Patient n.p. o. due for PEG insertion. IV changed to D5 normal saline. Continue per consultants. April 27: Status quo. Labs reviewed. Medication list reviewed. Stable from renal standpoint of view. Abnormal electrolytes addressed. April 26: Patient is now trached and connected to vent. FiO2 70%. Labs reviewed. Renal parameters stable. Medication list reviewed. Continue per consultants. April 25: Status quo. Full code. FiO2 55%. No labs drawn today. Continue to monitor electrolytes and renal parameters. Continue per consultants. April 24: Status quo. Full code. Intubated on ventilator. FiO2 65%. Labs reviewed. Renal parameters and electrolytes stable. April 23: Status unchanged. Full code. Intubated on ventilator. FiO2 75%. Labs reviewed. Renal parameters stable. Continue per consultants. April 22: Labs reviewed. Patient remains intubated on ventilator and full code. FiO2 90%. Day 77 hospitalization. Not much to add from renal standpoint of view April 21: No CHEM panel drawn today. FiO2 60%. Patient full code. Continue per consultants. April 20: Labs reviewed. Renal parameters stable. Patient remains full code. Intubated on ventilator with FiO2 currently at 70%. Continue per consultants. April 19: No labs drawn today. Remains full code on FiO2 of 100%. Continue per consultants. April 18: Status quo. Labs reviewed. Renal parameters stable. April 17: Status quo. Intubated on ventilator. Full code. Labs reviewed. Electrolytes and renal parameters stable. Continue per consultants. April 16: Girlfriend in the room. Patient awake. Intubated. Full code. Labs reviewed. Abnormal electrolyte addressed. Continue per consultants. April 15: Labs reviewed. Electrolytes and renal parameters stable. Patient full code. Continues to be intubated on ventilator. April 14: Status quo. Labs reviewed. Remains intubated on ventilator. Full code. Continue per consultants. April 13: Status quo. Labs reviewed. Renal parameters electrolytes stable. Continue per current treatment plan. April 12: On higher FiO2. Will resume Lasix daily. Continue to monitor electrolytes and renal parameters. Per consultants. April 11: FiO2 went up to 85%. Renal parameters and electrolytes reasonably well-maintained. Will monitor serum potassium. Will give IV Lasix. April 10: Status quo. Labs reviewed. Remains intubated on ventilator with FiO2 of 65%. Remains full code. Stable from renal standpoint to view. Repeat vitamin D level on April 08 pending April 09: Status quo. Labs reviewed. Stable from renal standpoint of view. Continue per consultants. April 08: Discussed with RN. Labs reviewed. Clinically improving. Requires lower PEEP. Continue per pulmonary. Continue to monitor renal parameters. April 07: Remains full code and on ventilator. Labs reviewed. Renal parameters and electrolytes stable. Continue per consultants. Blood pressure marginally improved. April 06: Full code. On ventilator. Blood pressure 80-90 systolic. IV Lasix discontinued. Free water through tube feeding ordered. Continue to monitor electrolytes and serum sodium. Down on fentanyl as possible. Discussed with PRIYANKA Brown. Clonidine patch discontinued. April 05: Status quo. Remains full code. Remains intubated. Labs reviewed. Renal parameters stable. Serum sodium 150 unchanged. Continue per consultants. April 04: Remains intubated and on ventilator. Remains full code. Labs reviewed. Serum sodium 150 unchanged. Renal parameters stable. Continue per ID and pulmonary. April 03: Intubated. On ventilator. Full code. Labs reviewed. Serum sodium 150 unchanged. Continue to monitor renal parameters. Continue per pulmonary and ID. April 02: Full code. On ventilator. Discussed with RN. Serum sodium slightly higher. Will cut down on IV Lasix. Continue per consultants. Continue to monitor renal parameters and electrolytes. April 01: Full code. Remains on ventilator. Labs reviewed. Stable from renal standpoint of view. Continue per consultants. March 31: Full code . Remains intubated on ventilator. Labs reviewed. Patient appears toxic. Discussed with RN. Maintenance IV discontinued. Medication list reviewed. Blood pressure medication stopped due to low blood pressure. Levemir insulin stopped. Continue monitor blood sugar and sliding scale insulin. March 30: Full code. On ventilator. Labs reviewed. Clonidine patch dose increased. Lasix increased. 3% saline 1 time ordered. Continue to monitor electrolytes and renal parameters. March 29: Remains full code. On mechanical ventilation. On tube feeding. Will DC TPN. Will start on maintenance IV fluid. Continue to monitor renal parameters. March 28: On BiPAP. Full code. On TPN. Labs reviewed. Discussed with pharmacy. Continue as is. Watch serum potassium. March 27: Remains on BiPAP. No chemistry panel done today. Full code. On TPN. Will check lab tomorrow. March 26: Remains on BiPAP. Remains on TPN. Labs reviewed. Electrolytes and chemistries within normal limits. Continue as is. March 25: Remains on TPN. Labs reviewed. Discussed with pharmacy. Change IV Protonix to p.o. Continue 3% saline infusion with Lasix. Patient full code. March 24: Continue to be on TPN. Labs are reviewed. Aim to collect el ectrolytes. Discussed with pharmacy. Continue current consultants. March 23: Continues to be on TPN. Labs reviewed. Electrolytes and chemistries all acceptable. Discussed with pharmacy. Continue current management. March 22: On TPN. Labs reviewed. Low sodium noted. 3% saline to be continued. Continue to monitor electrolytes. Discussed with pharmacy. March 21: On TPN. Labs reviewed. Continue 3% saline and Lasix for mild hyponatremia. Continue TPN as these. Discussed with pharmacy. March 20: Remains on TPN. Labs reviewed. Serum sodium higher on IV Lasix and 3% saline infusion. Continue TPN as is. Continue to monitor renal parameters and electrolytes. Discussed with Dr. Mata March 19: Remains on TPN. Labs reviewed. Serum sodium 128. Will give 3% saline with IV Lasix. Continue to monitor electrolytes. No change in TPN composition. Discussed with pharmacy. March 18: Remains on TPN. Labs reviewed. Discussed with pharmacist. Will give 3 doses of IV Lasix 20 mg every 8 hours. Continue to monitor serum sodium electrolytes uric acid. White blood cells down. Continue per consultants. March 17: On TPN. Labs reviewed. Discussed with pharmacist. Sodium content increase. Continue to monitor CMP. Patient continues to have leukocytosis. March 16: On TPN. Labs reviewed. Discussed with pharmacist. Appropriate changes made. Continue to monitor electrolytes. March 15: Remains on TPN. Labs reviewed. Discussed with pharmacist. Continue per current management. March 14: Remains on TPN. Labs reviewed, stable. Vitamin D level low, replacement ordered. Continue to monitor electrolytes and renal parameters. March 13: Patient remains on TPN. Discussed with pharmacist. TPN's sodium content adjusted. Labs reviewed. Continue to monitor electrolytes. Blood pressure remains stable. Continue per consultants. March 12: Patient on TPN. Labs reviewed. CPK remains elevated. Abnormal electrolytes and high blood sugar discussed with pharmacist and TPN adjusted. Continue to monitor labs. Oral Protonix added. Ibuprofen discontinued. Can continue to monitor electrolytes and chemistries. Levemir for high blood sugar added. March 11: Patient on TPN. Labs as of 11:15 AM is still pending. Continue per current treatment plan. Will check labs and adjust TPN as needed. Continue per consultants. March 10: Patient on TPN. Labs reviewed. Electrolytes overall stable. CPK is elevated. Will monitor electrolyte, CPK level, lipid panel. Continue per consultants. Discussed with pharmacist. Discussed with RN. Nutritional evaluation noted. Previously: D5W 100 cc an hour Monitor electrolytes renal parameters TPN and Intralipid ordered Will follow Continue per consultants Dietary consult requested Subjective ROS Limited/Unobtainable: Yes Objective Objective Last 24 Hour Vital Signs Date Time Temp Pulse Resp B/P (MAP) Pulse Ox O2 Delivery O2 Flow Rate FiO2 05/07/20 16:00 98.0 98 22 142/87 (105) 97 05/07/20 12:38 107 31 125/81 93 05/07/20 12:08 107 31 125/81 93 05/07/20 12:00 91 05/07/20 11:26 98.1 05/07/20 11:09 45 05/07/20 11:08 Mechanical Ventilator 05/07/20 11:07 98.1 107 31 125/81 (96) 93 05/07/20 11:02 112 30 92 Mechanical Ventilator 45 05/07/20 11:00 114 30 45 05/07/20 08:53 102 25 142/95 95 05/07/20 08:24 102 142/95 05/07/20 08:23 105 25 142/95 95 05/07/20 08:00 105 05/07/20 08:00 Mechanical Ventilator 05/07/20 08:00 40 05/07/20 08:00 98.1 104 31 145/84 (104) 93 05/07/20 07:20 106 25 40 05/07/20 04:00 99 05/07/20 04:00 98.1 104 31 145/84 (104) 93 05/07/20 04:00 Mechanical Ventilator 05/07/20 04:00 40 05/07/20 03:13 102 26 40 05/07/20 00:00 97.3 108 27 146/83 (104) 95 05/07/20 00:00 100 05/07/20 00:00 Mechanical Ventilator 05/06/20 23:19 105 25 45 05/06/20 20:00 Mechanical Ventilator 05/06/20 20:00 45 05/06/20 20:00 76 05/06/20 20:00 98.4 80 24 114/65 (81) 97 05/06/20 19:08 75 23 45 05/06/20 18:34 76 24 134/74 97 05/06/20 18:04 80 136/72 05/06/20 18:04 86 25 136/72 96 05/06/20 17:09 80 25 45 Intake and Output 05/06/20 05/07/20 19:00 07:00 Intake Total 1000 ml 700 ml Output Total 400 ml 1100 ml Balance 600 ml -400 ml Free Water 400 ml 90 ml Tube Feeding 600 ml 550 ml Other 60 ml Output Urine Total 400 ml 1100 ml Current Medications Medications (Trade) Dose Ordered Sig/Dennis Route PRN Reason Start Time Stop Time Status Last Admin Dose Admin Acetaminophen (Tylenol) 650 mg Q4H PRN GT Mild Pain (Pain Scale 1-3) 05/02/20 08:45 06/01/20 08:44 05/02/20 09:04 Acetaminophen/ Hydrocodone Bitart ([place] 5/325) 1 tab Q4H GT 05/02/20 11:00 05/09/20 10:59 05/07/20 16:19 Amlodipine Besylate (Norvasc) 2.5 mg BID GT 05/02/20 18:00 06/02/20 08:59 05/07/20 08:24 Chlorhexidine Gluconate (Marlen-Hex 2%) 1 applic DAILY@1999 TOPIC 03/30/20 20:00 06/28/20 19:59 05/06/20 20:38 Dextrose (Dextrose 50%) 25 ml Q30M PRN IV Hypoglycemia 03/29/20 20:45 06/27/20 20:44 Dextrose (Dextrose 50%) 50 ml Q30M PRN IV Hypoglycemia 03/29/20 20:45 06/27/20 20:44 Enoxaparin Sodium (Lovenox) 80 mg EVERY 12 HOURS SUBQ 04/06/20 21:00 07/05/20 20:59 05/07/20 08:25 Famotidine (Pepcid I.v.) 20 mg Q12HR PRN IVP HEART BURN 05/02/20 15:15 06/01/20 15:14 05/02/20 22:10 Fluconazole (Diflucan) 100 mg DAILY ORAL 05/06/20 09:00 05/13/20 08:59 05/07/20 08:23 Furosemide (Lasix) 20 mg DAILY IV 05/05/20 20:00 05/08/20 09:00 05/07/20 08:24 Hydralazine HCl (Apresoline) 10 mg Q4H PRN IV For High Blood Pressure 03/30/20 12:15 06/28/20 12:14 05/02/20 21:07 Insulin Aspart (NovoLOG) Q6HR SUBQ 03/30/20 00:00 06/28/20 00:00 05/01/20 18:00 Lansoprazole (Prevacid) 30 mg DAILY GT 05/02/20 09:00 06/01/20 08:59 05/07/20 08:23 Lorazepam (Ativan) 1 mg THREE TIMES A DAY ORAL 05/01/20 13:00 05/08/20 12:59 05/07/20 12:08 Prednisone (predniSONE) 10 mg DAILY ORAL 05/06/20 09:00 06/05/20 08:59 05/07/20 08:24 Quetiapine Fumarate (SEROqueL) 50 mg EVERY 8 HOURS ORAL 04/29/20 12:00 06/11/20 11:59 05/07/20 14:09 Trimethoprim/ Sulfamethoxazole (Bactrim-DS) 1 tab DAILY ORAL 04/30/20 09:00 05/11/20 08:59 05/07/20 08:23 Laboratory Tests 05/06/20 23:48: POC Whole Blood Glucose 111H 05/07/20 05:19: POC Whole Blood Glucose 92 05/07/20 11:06: POC Whole Blood Glucose 136H Height (Feet): 5 Height (Inches): 10.00 Weight (Pounds): 243 General Appearance: no apparent distress EENT: other - Trach to vent Neck: limited range of motion Cardiovascular: tachycardia Respiratory/Chest: decreased breath sounds Abdomen: distended Rubin Cooper MD May 07, 2020 16:24
--- NOTE | 2020-05-07 18:01 | Infectious Diseases Prog Note ---
Assessment/Plan Assessment/Plan ASSESSMENT AND PLAN: 1. hx staph aureus bacteremia/mssa - s/p tx covid-19 +, hypoxia, sob, chest x-ray worse, ? PE, ? HCAP/aspiration pna trach/vent ? fungal uti, low grade fevers diarrhea - c.diff. negative - s/p zosyn and vancomycin - diflucan x 3 days - on prednisone - picc line changed - bactrim for pneumocystis prophylaxis - s/p tx for mssa bacteremia and ? endocarditis - monitor hypoxia, labs and chest x-ray - surveillance blood cultures negative 2. covid-19 isolation removed - covid-19 recovered 3. Hypertension history. Blood pressure treatment primary care team. 4. Elevated blood sugars. Blood sugar treatment per primary care team. 5. No known drug allergies. 6. Social history is positive for smoking. 7. Family history is noncontributory. 8. MAR was noted. 9. Case was discussed with RN. 10. Continue treatment per primary consultants. Subjective Constitutional: Reports: fatigue; Denies: fever HEENT: Reports: congestion Respiratory: Reports: shortness of breath Cardiovascular: Reports: other - no pressors ; Denies: chest pain Gastrointestinal/Abdominal: Reports: diarrhea; Denies: nausea, vomiting Genitourinary: Reports: other - + joseph Neurologic: Reports: weakness, other - alert Psychiatric: Reports: other - NA Skin: Denies: rash Hematologic: Denies: bleeding Musculoskeletal: Denies: pain Allergies: Coded Allergies: No Known Allergies (Unverified , 02/05/20) Objective Last 24 Hour Vital Signs Date Time Temp Pulse Resp B/P (MAP) Pulse Ox O2 Delivery O2 Flow Rate FiO2 05/07/20 16:49 98.1 05/07/20 16:00 95 05/07/20 16:00 98.0 98 22 142/87 (105) 97 05/07/20 16:00 Mechanical Ventilator 05/07/20 16:00 45 05/07/20 15:32 97 24 45 05/07/20 12:38 107 31 125/81 93 05/07/20 12:08 107 31 125/81 93 05/07/20 12:00 91 05/07/20 11:26 98.1 05/07/20 11:09 45 05/07/20 11:08 Mechanical Ventilator 05/07/20 11:07 98.1 107 31 125/81 (96) 93 05/07/20 11:02 112 30 92 Mechanical Ventilator 45 05/07/20 11:00 114 30 45 05/07/20 08:53 102 25 142/95 95 05/07/20 08:24 102 142/95 05/07/20 08:23 105 25 142/95 95 05/07/20 08:00 105 05/07/20 08:00 Mechanical Ventilator 05/07/20 08:00 40 05/07/20 08:00 98.1 104 31 145/84 (104) 93 05/07/20 07:20 106 25 40 05/07/20 04:00 99 05/07/20 04:00 98.1 104 31 145/84 (104) 93 05/07/20 04:00 Mechanical Ventilator 05/07/20 04:00 40 05/07/20 03:13 102 26 40 05/07/20 00:00 97.3 108 27 146/83 (104) 95 05/07/20 00:00 100 05/07/20 00:00 Mechanical Ventilator 05/06/20 23:19 105 25 45 05/06/20 20:00 Mechanical Ventilator 05/06/20 20:00 45 05/06/20 20:00 76 05/06/20 20:00 98.4 80 24 114/65 (81) 97 05/06/20 19:08 75 23 45 05/06/20 18:34 76 24 134/74 97 05/06/20 18:04 80 136/72 05/06/20 18:04 86 25 136/72 96 Height (Feet): 5 Height (Inches): 10.00 Weight (Pounds): 243 General Appearance: no acute distress HEENT: normocephalic, atraumatic, anicteric, status post trach Respiratory/Chest: crackles/rales, rhonchi - bilaterally Cardiovascular: normal rate, regular rhythm, no gallop/murmur Abdomen: normal bowel sounds, soft, non tender, no organomegaly Genitourinary: other - + joseph Extremities: no cyanosis Skin: no rash 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 The infiltrates are typical for Covid 19. No evidence of pulmonary embolus. CT abdomen and pelvis: IMPRESSION: 1. Scattered hepatic hypodense lesions, too small to characterize on this examination without intravenous contrast. 2. Colonic diverticulosis without evidence of acute diverticulitis. 3. Scattered enlarged mesenteric lymph nodes, presumably reactive. teral pneumonia. The infiltrates are typical for Covid 19. No evidence of pulmonary embolus. Chest x-ray - 12/19/19 - Indication: Shortness of breath Technique: One view of the chest Comparison: 02/17/2020 Findings: Interim worsening of bilateral infiltrates, particularly on the right. The heart is borderline enlarged. The pleural spaces are clear. Left arm PICC is again demonstrated Impression: Worsening bilateral infiltrates over one day, likely pneumonia CT chest - 02/19/20 - IMPRESSION: Increased extensive patchy ground-glass opacities and densities throughout the lungs, suggestive of Covid 19 infection. Chest x-ray 02/23/20 - Procedure: XRAY Chest 1v As Indication: Reason For Exam: INFECT Technique: One view of the chest Comparison: 02/20/2020 Findings: Allowing for differences in exposure technique, bilateral mid and lower lung infiltrates are probably unchanged. The heart size is normal. The pleural spaces are clear. Impression: Unchanged, over 4 days, findings as above. Chest x-ray - 02/25/20 - FINDINGS: Lungs: Interval slightly worsening bilateral airspace disease. Pleural space: Unremarkable. No pneumothorax. Heart: Unremarkable. No cardiomegaly. Mediastinum: Unremarkable. Bones/joints: Unremarkable. IMPRESSION: Interval slightly worsening bilateral airspace disease. Chest x-ray - 03/02/20 - Procedure: XRAY Chest 1v Indication: Shortness of breath Technique: One view of the chest Comparison: 02/25/2020 Findings: Bilateral interstitial and airspace infiltrates are unchanged. The heart size is normal. Left arm PICC is again demonstrated Impression: Unchanged, over one day, findings as above. Chest x-ray - 03/06/20 - Procedure: XRAY Chest 1v Indication: Shortness of breath Technique: One view of the chest Comparison: 03/02/2020 Findings: Bilateral infiltrates are unchanged. Normal heart size. Pleural spaces are clear Chest x-ray - 03/12/10 - Impression: COMPARISON: Chest radiograph March 06, 2020. FINDINGS/IMPRESSION: Improving basilar infiltrates. Follow chest radiograph recommended. The upper lung finley are clear. No pneumothorax. Stable cardiomegaly. Stable left upper extremity PICC line. anged, over 4 days, findings as above. Chest x-ray - 03/17/20 - Procedure: XRAY Chest 1v Indication: Shortness of breath Technique: One view of the chest Comparison: 03/12/2020 Findings: Left arm PICC is again demonstrated. Infiltrates are unchanged. The heart size is upper limits of normal. Impression: Unchanged, over 5 days, findings as above. Abdominal US - IMPRESSION: 1. Gallbladder is normal. 2. Hepatic steatosis. 3. 1.7 cm cyst right kidney. Impression. Chest x-ray - Procedure: XRAY Chest 1v Indication: Shortness of breath Technique: One view of the chest Comparison: 03/17/2020 Findings: Bilateral right greater than left infiltrates again demonstrated. The heart size is normal. There is a left arm PICC in good position. Impression: Unchanged, over 5 days, findings as above. Chest x-ray - 03/29/20 - Procedure: XRAY Chest 1v Indication: Cough Technique: One view of the chest Comparison: 03/28/2020 Findings: Bilateral infiltrates are unchanged or slightly worse, allowing for differences in exposure technique. The pleural spaces are clear. The heart size is normal. Stable satisfactory position of endotracheal tube, left arm PICC. Orogastric tube has retracted somewhat the position remains satisfactory. Impression: Stable to slightly worse bilateral infiltrates. 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 Interim advancement of orogastric tube as well. Bilateral infiltrates are unchanged. Left arm PICC remains Impression: Improved and now satisfactory tube positions as described. ICU nurse Maeve notified at the time of interpretation Chest x-ray - 04/02/20 - COMPARISON: Chest x-rays dated 03/31/20 and 03/12/20. FINDINGS: Lungs: No significant change in bilateral prominent interstitial markings. The lungs are otherwise clear without focal consolidation. Pleural space: Unremarkable. The costophrenic angles are sharp. No visible pneumothorax. Heart: Unremarkable. No cardiomegaly. Mediastinum: Unremarkable. Bones/joints: Unremarkable. Tubes, lines and devices: Endotracheal tube tip 6.5 cm above the sunny. NG tube tip in the distal stomach. Telemetry leads overlie the thorax. IMPRESSION: No significant change in bilateral prominent interstitial markings. Procedure: XRAY Chest 1v Procedure: XRAY Chest 1v Reason for study: Shortness of breath 04/06/20 - Comparison films: 04/02/2020. FINDINGS: Endotracheal tube and NG tube remain in place. There is worsening of right basilar infiltrates. Some haziness in left lung base unchanged. Cardiac and mediastinal silhouette are within normal limits. CP angles are sharp. The bony thorax appear unremarkable. IMPRESSION: Worsening of right basilar infiltrate. Chest x-ray - 04/09/20 - Procedure: XRAY Chest 1v FILM CXR 1 VIEW INDICATION: Infection COMPARISON: April 05, 2020 FINDINGS: Single frontal view demonstrates a normal cardiomediastinal silhouette. Endotracheal tube in place with tip above the sunny. Elevation of the right hemidiaphragm. Interstitial prominence with bilateral lower lobe infiltrates. Lung bases appear worse from the prior exam. Small right effusion. Right-sided PICC line with tip in the superior vena cava. Enteric tube in place. IMPRESSION: Interstitial prominence and bilateral lower lobe pneumonia with worsening appearance from the prior study. Chest x-ray - 04/12/20 - Procedure: XRAY Chest 1v Indication: Shortness of breath Technique: One view of the chest Comparison: 04/09/2020 Findings: Stable satisfactory tube and line positions. Bilateral infiltrates have worsened slightly since prior study. The heart size is normal. Impression: Worsening bilateral infiltrates, over 3 days Chest x-ray - 04/15/20 - COMPARISON: 02/11/21. FINDINGS: Lungs: There is been no significant change in mild to moderate patchy diffuse bilateral alveolar infiltrates which are most prominent in the lung bases. Pleural space: Unremarkable. No pneumothorax. Heart: Unremarkable. No cardiomegaly. Mediastinum: Unremarkable. Bones/joints: Unremarkable. Tubes, lines and devices: There is an endotracheal tube, right-sided PICC line and NG tube in good position. IMPRESSION: There is been no significant change in mild to moderate patchy diffuse bilateral alveolar infiltrates which are most prominent in the lung bases. Chest x-ray - 04/18/20 - Procedure: XRAY Chest 1v Indication: Cough Technique: One view of the chest Comparison: 04/15/2020 Findings: Less optimal inspiration currently than previously. Stable satisfactory positions of endotracheal and orogastric tubes and right arm PICC. Bilateral infiltrates are again demonstrated, unchanged. Impression: Unchanged, over 3 days, findings as above. Chest x-ray - 04/21/20 - Procedure: XRAY Chest 1v Indication: Dyspnea Technique: One view of the chest Comparison: 04/18/2020 Findings: Stable tube and line positions. Bilateral infiltrates are unchanged Impression: Unchanged, over one day, findings as above. Procedure: XRAY Chest 1v Procedure: XRAY Chest 1v Reason for study: Reason For Exam: SOB Chest x-ray - 04/25/20 - Comparison films: 04/21/2020. FINDINGS: Endotracheal tube, NG tube and right PICC line remain in place. Vascularity is normal. Bilateral infiltrates are unchanged. Cardiac and mediastinal silhouette are within normal limits. CP angles are sharp. The bony thorax appear unremarkable. IMPRESSION: NO SIGNIFICANT CHANGE COMPARED TO PREVIOUS EXAM. Chest x-rasy - 04/30/20 - FINDINGS: Lungs: Bilateral patchy pulmonary opacities concerning for pneumonia, not significantly changed compared to the prior chest x-ray. Pleural space: Unremarkable. The costophrenic angles are sharp. No visible pneumothorax. Heart: Unremarkable. No cardiomegaly. Mediastinum: Unremarkable. Bones/joints: Unremarkable. Tubes, lines and devices: Tracheostomy tube in place, with expected positioning. Telemetry leads overlie the thorax. Right arm PICC with catheter tip in the SVC region. IMPRESSION: Bilateral patchy pulmonary opacities concerning for pneumonia, not significantly changed compared to the prior chest x-ray. Microbiology Date/Time Source Procedure Growth Status 05/02/20 15:25 Urine,Clean Catch Urine Culture - Final Kat Parapsilosis Complete 04/29/20 19:00 Blood Blood Culture - Final NO GROWTH AFTER 5 DAYS Complete 04/14/20 16:35 Stool Clostridium difficile Toxin Assay - Final Complete 04/12/20 08:40 Sputum Gram Stain - Final Complete 04/12/20 08:40 Sputum Sputum Culture - Final NORMAL UPPER RESPIRATORY WILIAM AT 48 ... Complete Labs Test 05/05/20 03:35 05/06/20 05:55 05/06/20 23:48 05/07/20 05:19 White Blood Count 9.1 K/UL (4.8-10.8) 8.8 K/UL (4.8-10.8) Red Blood Count 3.71 M/UL (4.70-6.10) 3.64 M/UL (4.70-6.10) Hemoglobin 10.6 G/DL (14.2-18.0) 10.5 G/DL (14.2-18.0) Hematocrit 34.0 % (42.0-52.0) 33.3 % (42.0-52.0) Mean Corpuscular Volume 92 FL (80-99) 91 FL (80-99) Mean Corpuscular Hemoglobin 28.7 PG (27.0-31.0) 28.8 PG (27.0-31.0) Mean Corpuscular Hemoglobin Concent 31.3 G/DL (32.0-36.0) 31.6 G/DL (32.0-36.0) Red Cell Distribution Width 16.6 % (11.6-14.8) 16.4 % (11.6-14.8) Platelet Count 302 K/UL (150-450) 286 K/UL (150-450) Mean Platelet Volume 5.8 FL (6.5-10.1) 6.4 FL (6.5-10.1) Neutrophils (%) (Auto) 77.3 % (45.0-75.0) 81.9 % (45.0-75.0) Lymphocytes (%) (Auto) 15.2 % (20.0-45.0) 12.9 % (20.0-45.0) Monocytes (%) (Auto) 6.4 % (1.0-10.0) 4.2 % (1.0-10.0) Eosinophils (%) (Auto) 0.4 % (0.0-3.0) 0.1 % (0.0-3.0) Basophils (%) (Auto) 0.7 % (0.0-2.0) 0.9 % (0.0-2.0) Sodium Level 142 MMOL/L (136-145) 140 MMOL/L (136-145) Potassium Level 3.7 MMOL/L (3.5-5.1) 3.9 MMOL/L (3.5-5.1) Chloride Level 103 MMOL/L (98-107) 102 MMOL/L (98-107) Carbon Dioxide Level 30 MMOL/L (21-32) 32 MMOL/L (21-32) Anion Gap 9 mmol/L (5-15) 6 mmol/L (5-15) Blood Urea Nitrogen 12 mg/dL (7-18) 15 mg/dL (7-18) Creatinine 0.5 MG/DL (0.55-1.30) 0.4 MG/DL (0.55-1.30) Estimat Glomerular Filtration Rate > 60 mL/min (>60) > 60 mL/min (>60) Glucose Level 80 MG/DL (74-106) 91 MG/DL (74-106) Calcium Level 9.0 MG/DL (8.5-10.1) 8.9 MG/DL (8.5-10.1) Phosphorus Level 3.2 MG/DL (2.5-4.9) Magnesium Level 2.0 MG/DL (1.8-2.4) Total Bilirubin 0.5 MG/DL (0.2-1.0) Aspartate Amino Transf (AST/SGOT) 16 U/L (15-37) Alanine Aminotransferase (ALT/SGPT) 27 U/L (12-78) Alkaline Phosphatase 98 U/L (46-116) Total Protein 6.1 G/DL (6.4-8.2) Albumin 2.8 G/DL (3.4-5.0) Globulin 3.3 g/dL Albumin/Globulin Ratio 0.8 (1.0-2.7) POC Whole Blood Glucose 111 MG/DL (74-106) 92 MG/DL (74-106) Test 05/07/20 11:06 POC Whole Blood Glucose 136 MG/DL (74-106) Laboratory Tests Test 05/06/20 23:48 05/07/20 05:19 05/07/20 11:06 POC Whole Blood Glucose 111 MG/DL (74-106) H 92 MG/DL (74-106) 136 MG/DL (74-106) H Current Medications Medications (Trade) Dose Ordered Sig/Dennis Route PRN Reason Start Time Stop Time Status Last Admin Dose Admin Acetaminophen (Tylenol) 650 mg Q4H PRN GT Mild Pain (Pain Scale 1-3) 05/02/20 08:45 06/01/20 08:44 05/02/20 09:04 Acetaminophen/ Hydrocodone Bitart ([place] 5/325) 1 tab Q4H GT 05/02/20 11:00 05/09/20 10:59 05/07/20 16:19 Amlodipine Besylate (Norvasc) 2.5 mg BID GT 05/02/20 18:00 06/02/20 08:59 05/07/20 08:24 Chlorhexidine Gluconate (Marlen-Hex 2%) 1 applic DAILY@2000 TOPIC 03/30/20 20:00 06/28/20 19:59 05/06/20 20:38 Dextrose (Dextrose 50%) 25 ml Q30M PRN IV Hypoglycemia 03/29/20 20:45 06/27/20 20:44 Dextrose (Dextrose 50%) 50 ml Q30M PRN IV Hypoglycemia 03/29/20 20:45 06/27/20 20:44 Enoxaparin Sodium (Lovenox) 80 mg EVERY 12 HOURS SUBQ 04/06/20 21:00 07/05/20 20:59 05/07/20 08:25 Famotidine (Pepcid I.v.) 20 mg Q12HR PRN IVP HEART BURN 05/02/20 15:15 06/01/20 15:14 05/02/20 22:10 Fluconazole (Diflucan) 100 mg DAILY ORAL 05/06/20 09:00 05/13/20 08:59 05/07/20 08:23 Furosemide (Lasix) 20 mg DAILY IV 05/05/20 20:00 05/08/20 09:00 05/07/20 08:24 Hydralazine HCl (Apresoline) 10 mg Q4H PRN IV For High Blood Pressure 03/30/20 12:15 06/28/20 12:14 05/02/20 21:07 Insulin Aspart (NovoLOG) Q6HR SUBQ 03/30/20 00:00 06/28/20 00:00 05/01/20 18:00 Lansoprazole (Prevacid) 30 mg DAILY GT 05/02/20 09:00 06/01/20 08:59 05/07/20 08:23 Lorazepam (Ativan) 1 mg THREE TIMES A DAY ORAL 05/01/20 13:00 05/08/20 12:59 05/07/20 12:08 Prednisone (predniSONE) 10 mg DAILY ORAL 05/06/20 09:00 06/05/20 08:59 05/07/20 08:24 Quetiapine Fumarate (SEROqueL) 50 mg EVERY 8 HOURS ORAL 04/29/20 12:00 06/11/20 11:59 05/07/20 14:09 Trimethoprim/ Sulfamethoxazole (Bactrim-DS) 1 tab DAILY ORAL 04/30/20 09:00 05/11/20 08:59 05/07/20 08:23 Kisha Salazar MD May 07, 2020 18:01
--- NOTE | 2020-05-07 19:06 | NUR ---
NURSE HAND-OFF REPORT: Important Events on Shift: FiO2 increased to 45 Patient Status: stable Diet: Tube feeding Pending Orders: none Pending Results/Labs Pending MD notification: Latest Vital Signs: Temperature 98.1 , Pulse 95 , B/P 142 /87 , Respiratory Rate 22 , O2 SAT 97 , Mechanical Ventilator, O2 Flow Rate . Vital Sign Comment: EKG Rhythm: Sinus Rhythm Rhythm change?: N MD Notified?: N -Dr.Toluie INTERIANO Response: Message left await call Latest Hassan Fall Score: 35 Fall Risk: Medium Risk Safety Measures: Call light Within Reach, Bed Alarm Zone 1, Side Rails Side Rails x3, Bed position Low and Locked. Fall Precautions: Yellow Socks Yellow Gown Door Sign Patient Fall Education Report given to Stephen MATHEW.
--- NOTE | 2020-05-07 19:15 | NUR ---
NURSE NOTES: Pt report received from Keira Huizar pt is alert and oriented times 4, no acute change in neuro. pt is showing NSR on monitor tech, no acute abnormalities cardiac vick. pt is trach vented sating 97% O2, no acute changes in resp. pt bed is low locked armed. call light within reach, bed rails up times 3. will follow plan of care.
--- NOTE | 2020-05-07 19:49 | NUR ---
NURSE HAND-OFF REPORT: Important Events on Shift:[NA] Patient Status: [stable] Diet: [NA] Pending Orders: [NA] Pending Results/Labs:[NA] Pending MD notification:[NA] Latest Vital Signs: Temperature 98.1 , Pulse 81 , B/P 142 /87 , Respiratory Rate 21 , O2 SAT 97 , Mechanical Ventilator, O2 Flow Rate . Vital Sign Comment: [stable] EKG Rhythm: Sinus Rhythm Rhythm change?: N MD Notified?: N -Dr.Toluie INTERIANO Response: Message left await call Latest Hassan Fall Score: 35 Fall Risk: Medium Risk Safety Measures: Call light Within Reach, Bed Alarm Zone 1, Side Rails Side Rails x3, Bed position Low and Locked. Fall Precautions: Yellow Socks Yellow Gown Door Sign Patient Fall Education Report given to [Camila Garcia RN].
--- NOTE | 2020-05-07 19:50 | NUR ---
NURSE NOTES: Report received from PRIYANKA Mitchell. Patient is awake on bed in stable condition, alert and oriented x 4 but non verbal due to his tracheostomy. With trach to ventilator, AC18, TV 750, FiO2 45%, Peep 5, saturating 95% at this time. recording clerk is in place, shows sinus rhythm. With G-tube on Glucerna 1.5 @ 50cc/hour. With joseph catheter in place, drained via gravity with dark jeff color urine output, and with rectal tube. Safety measures are in place, bed in lowest and locked position, side rails up x 2, call light button and bedside table with in reach, instructed to call for any assistance needed, will continue plan of care
[2020-05-07 20:00] VITALS: BP 146/95
[2020-05-07] MEDS: Dyna-Hex 2% Top Sol 2oz TOPIC SCH (20:14)
--- NOTE | 2020-05-07 20:30 | NUR ---
NURSE NOTES: First assessment done, patient has been resting well at this time, saturating 95-96% on Fi02 45%. Repositioned on his left side, will continue plan of care.
--- NOTE | 2020-05-07 23:28 | NUR ---
NURSE NOTES: Accucheck done and results is 92, no any untoward symptoms noted. Will continue to monitor.
[2020-05-08] VITALS (7 sets, daily range): BP systolic 114–164; BP diastolic 71–108
--- NOTE | 2020-05-08 02:05 | NUR ---
NURSE NOTES: Dressing change in PICC line, both lumens were working and patent. No bleeding nor hematoma noted.
[2020-05-08] MEDS: HYDROcodone/Acetamin 5/325 tab GT SCH ×6 (03:12→22:43)
--- NOTE | 2020-05-08 04:20 | NUR ---
NURSE NOTES: Patient's blood pressure is elevated, 164/104 complaints of pain on his sacral area, hydrocodone was already given. Will give hydralazine 10mh (O.5 cc) per PRN medication.
[2020-05-08 05:15] LABS: BASOPHILS % (AUTO) 0.7 % (0.0-2.0); EOSINOPHILS % (AUTO) 1.2 % (0.0-3.0); HEMATOCRIT 34.7 % (42.0-52.0); HEMOGLOBIN 10.9 G/DL (14.2-18.0); MEAN CORPUSCULAR VOLUME 91 FL (80-99); MONOCYTES % (AUTO) 4.8 % (1.0-10.0); NEUTROPHILS % (AUTO) 74.3 % (45.0-75.0); PLATELET COUNT 312 K/UL (150-450); RED CELL DISTRIBUTION WIDTH 16.6 % (11.6-14.8); WHITE BLOOD COUNT 7.6 K/UL (4.8-10.8)
[2020-05-08] MEDS: NovoLOG Insulin Flexpen SUBQ SCH ×4 (05:35→23:35)
[2020-05-08 05:39] LABS: ALANINE AMINOTRANSFERASE 29 U/L (12-78); ALBUMIN 2.9 G/DL (3.4-5.0); ALBUMIN/GLOBULIN RATIO 0.8 (1.0-2.7); ALKALINE PHOSPHATASE 88 U/L (46-116); ANION GAP 8 mmol/L (5-15); ASPARTATE AMINO TRANSFERASE 15 U/L (15-37); BILIRUBIN,TOTAL 0.4 MG/DL (0.2-1.0); BLOOD UREA NITROGEN 20 mg/dL (7-18); CALCIUM 8.9 MG/DL (8.5-10.1); CARBON DIOXIDE 30 MMOL/L (21-32); CHLORIDE 100 MMOL/L (98-107); CREATININE 0.4 MG/DL (0.55-1.30); PHOSPHORUS 3.1 MG/DL (2.5-4.9); POTASSIUM 3.8 MMOL/L (3.5-5.1); SODIUM 138 MMOL/L (136-145)
--- NOTE | 2020-05-08 07:05 | NUR ---
NURSE NOTES: Received report from PRIYANKA Jensen. Patient is AOx3. Patent is trach to vent Shiley 8, AC 18, TV 750, FiO2 45%, PEEP 5. Breathing is even and unlabored with no signs of respiratory distress at this time. Patient denies pain or discomfort. With G-tube on Glucerna 1.5 @ 50cc/hour. With joseph catheter in place, drained via gravity. Safety measures are in place, bed in lowest and locked position, side rails up x 2. Call light within reach.
--- NOTE | 2020-05-08 07:29 | NUR ---
NURSE HAND-OFF REPORT: Important Events on Shift: Patient had an episode of high blood pressure, hydralazine was given, laterst BP 114/72. No desaturation noted. Patient Status: Patient is asleep on bed in stable condition. Plan of care endorsed. Diet: Glucerna 1.5 @ 50cc/hour Pending Orders: none Pending Results/Labs:AM labs Pending MD notification:none Latest Vital Signs: Temperature 98.4 , Pulse 89 , B/P 114 /71 , Respiratory Rate 22 , O2 SAT 98 , Mechanical Ventilator, O2 Flow Rate . Vital Sign Comment: stable EKG Rhythm: Sinus Rhythm Rhythm change?: N Notified?: N -Dr.Toluie INTERIANO Response: Message left await call Latest Hassan Fall Score: 35 Fall Risk: Medium Risk Safety Measures: Call light Within Reach, Bed Alarm Zone 1, Side Rails Side Rails x3, Bed position Low and Locked. Fall Precautions: Yellow Socks Yellow Gown Door Sign Patient Fall Education Report given to PRIYANKA Clarke.
[2020-05-08] MEDS: Fluconazole 100mg tab ORAL SCH (08:11)
[2020-05-08] MEDS: Bactrim-DS 1 tab ORAL SCH (08:11)
[2020-05-08] MEDS: LORazepam 1mg tab ORAL SCH (08:13)
[2020-05-08] MEDS: Enoxaparin 80mg Inj SUBQ SCH ×2 (08:14→20:24)
--- NOTE | 2020-05-08 10:52 | Pulmonology Progress Note ---
Subjective ROS Limited/Unobtainable: Yes Interval Events: S/p tracheostomy 04/25/20 Constitutional: Reports: fatigue; Denies: fever HEENT: Repors: no symptoms Respiratory: Reports: dry cough, shortness of breath Cardiovascular: Reports: no symptoms Gastrointestinal/Abdominal: Reports: diarrhea; Denies: nausea, vomiting Psychiatric: Reports: other - NA Skin: Denies: rash Musculoskeletal: Denies: pain Allergies: Coded Allergies: No Known Allergies (Unverified , 02/05/20) Objective Last 24 Hour Vital Signs Date Time Temp Pulse Resp B/P (MAP) Pulse Ox O2 Delivery O2 Flow Rate FiO2 05/08/20 08:43 105 20 138/70 97 05/08/20 08:13 118 146/68 05/08/20 08:13 118 20 146/68 97 05/08/20 08:00 45 05/08/20 08:00 Mechanical Ventilator 05/08/20 08:00 98.4 120 22 146/78 (100) 98 05/08/20 08:00 128 05/08/20 06:55 127 28 45 05/08/20 06:00 114/71 (85) 05/08/20 04:31 164/104 05/08/20 04:00 89 05/08/20 04:00 45 05/08/20 04:00 98.4 102 22 164/104 (124) 98 05/08/20 04:00 Mechanical Ventilator 05/08/20 03:13 97 21 45 05/08/20 00:00 98.1 89 25 130/79 (96) 98 05/08/20 00:00 45 05/08/20 00:00 Mechanical Ventilator 05/07/20 23:27 91 05/07/20 23:03 103 20 45 05/07/20 20:31 90 05/07/20 20:00 45 05/07/20 20:00 Mechanical Ventilator 05/07/20 20:00 98.3 87 24 146/95 (112) 97 05/07/20 19:25 81 21 45 05/07/20 18:30 95 22 142/87 97 05/07/20 18:00 95 142/87 05/07/20 18:00 95 22 142/87 97 05/07/20 16:49 98.1 05/07/20 16:00 95 05/07/20 16:00 98.0 98 22 142/87 (105) 97 05/07/20 16:00 Mechanical Ventilator 05/07/20 16:00 45 05/07/20 15:32 97 24 45 05/07/20 12:38 107 31 125/81 93 05/07/20 12:08 107 31 125/81 93 05/07/20 12:00 91 05/07/20 11:26 98.1 05/07/20 11:09 45 05/07/20 11:08 Mechanical Ventilator 05/07/20 11:07 98.1 107 31 125/81 (96) 93 05/07/20 11:02 112 30 92 Mechanical Ventilator 45 05/07/20 11:00 114 30 45 Intake and Output 05/07/20 05/08/20 19:00 07:00 Intake Total 640 ml 730 ml Output Total 1700 ml Balance -1060 ml 730 ml Free Water 80 ml Tube Feeding 600 ml 600 ml Other 40 ml 50 ml Output Urine Total 1700 ml General Appearance: WD/WN, no acute distress HEENT: normocephalic, atraumatic, status post trach Respiratory: chest wall non-tender Cardiovascular: normal rate, regular rhythm Abdomen: normal bowel sounds, soft, non tender, other - obese Laboratory Tests 05/07/20 11:06: POC Whole Blood Glucose 136H 05/07/20 18:06: POC Whole Blood Glucose [Pending] 05/07/20 23:16: POC Whole Blood Glucose 92 05/08/20 03:48: White Blood Count 7.6, Red Blood Count 3.80L, Hemoglobin 10.9L, Hematocrit 34.7L , Mean Corpuscular Volume 91, Mean Corpuscular Hemoglobin 28.7, Mean Corpuscular Hemoglobin Concent 31.4L, Red Cell Distribution Width 16.6H, Platelet Count 312, Mean Platelet Volume 6.5, Neutrophils (%) (Auto) 74.3, Lymphocytes (%) (Auto) 19.0L, Monocytes (%) (Auto) 4.8, Eosinophils (%) (Auto) 1.2, Basophils (%) (Auto) 0.7, Sodium Level 138, Potassium Level 3.8, Chloride Level 100, Carbon Dioxide Level 30, Anion Gap 8, Blood Urea Nitrogen 20H, Creatinine 0.4L, Estimat Glomerular Filtration Rate > 60, Glucose Level 92, Calcium Level 8.9, Phosphorus Level 3.1, Magnesium Level 2.1, Total Bilirubin 0.4, Aspartate Amino Transf (AST/SGOT) 15, Alanine Aminotransferase (ALT/SGPT) 29, Alkaline Phosphatase 88, C-Reactive Protein, Quantitative 6.6H, Pro-B-Type Natriuretic Peptide 187H, Total Protein 6.4, Albumin 2.9L, Globulin 3.5, Albumin/Globulin Ratio 0.8L 05/08/20 05:32: POC Whole Blood Glucose [Pending] Current Medications Medications (Trade) Dose Ordered Sig/Dennis Route PRN Reason Start Time Stop Time Status Last Admin Dose Admin Acetaminophen (Tylenol) 650 mg Q4H PRN GT Mild Pain (Pain Scale 1-3) 05/02/20 08:45 06/01/20 08:44 05/02/20 09:04 Acetaminophen/ Hydrocodone Bitart ([place] 5/325) 1 tab Q4H GT 05/02/20 11:00 05/09/20 10:59 05/08/20 07:00 Amlodipine Besylate (Norvasc) 2.5 mg BID GT 05/02/20 18:00 06/02/20 08:59 05/08/20 08:13 Chlorhexidine Gluconate (Marlen-Hex 2%) 1 applic DAILY@1999 TOPIC 03/30/20 20:00 06/28/20 19:59 05/07/20 20:14 Dextrose (Dextrose 50%) 25 ml Q30M PRN IV Hypoglycemia 03/29/20 20:45 06/27/20 20:44 Dextrose (Dextrose 50%) 50 ml Q30M PRN IV Hypoglycemia 03/29/20 20:45 06/27/20 20:44 Enoxaparin Sodium (Lovenox) 80 mg EVERY 12 HOURS SUBQ 04/06/20 21:00 07/05/20 20:59 05/08/20 08:14 Famotidine (Pepcid I.v.) 20 mg Q12HR PRN IVP HEART BURN 05/02/20 15:15 06/01/20 15:14 05/02/20 22:10 Fluconazole (Diflucan) 100 mg DAILY ORAL 05/06/20 09:00 05/13/20 08:59 05/08/20 08:11 Hydralazine HCl (Apresoline) 10 mg Q4H PRN IV For High Blood Pressure 03/30/20 12:15 06/28/20 12:14 05/08/20 04:31 Insulin Aspart (NovoLOG) Q6HR SUBQ 03/30/20 00:00 06/28/20 00:00 05/01/20 18:00 Lansoprazole (Prevacid) 30 mg DAILY GT 05/02/20 09:00 06/01/20 08:59 05/08/20 08:13 Lorazepam (Ativan) 1 mg THREE TIMES A DAY ORAL 05/01/20 13:00 05/08/20 12:59 05/08/20 08:13 Prednisone (predniSONE) 10 mg DAILY ORAL 05/06/20 09:00 06/05/20 08:59 05/08/20 08:12 Quetiapine Fumarate (SEROqueL) 50 mg EVERY 8 HOURS ORAL 04/29/20 12:00 06/11/20 11:59 05/08/20 05:35 Trimethoprim/ Sulfamethoxazole (Bactrim-DS) 1 tab DAILY ORAL 04/30/20 09:00 05/11/20 08:59 05/08/20 08:11 Assessment/Plan Assessment/Plan 1.COVID-19 pneumonia. - Completed specific therapies - off solumedrol 20 Iv q 12 -> now on prednisone 10 mg PO QD - will add bactrim for PJP prophylaxis 2. DVT ppx - on lovenox 3. Hypertension - no longer on meds - Not requiring pressors 4. Leukocytosis; - ID following - Off abx - Candidemia documented 03/18/20 5. Elevated LFT - positive Hep C; treated in the past with IF 6. Respiratory failure -Intubated 03/28/20; s/p tracheostomy 04/25/20 -Gradually weaned off sedation IOV Has DVT; on full dose Lovenox Will wean down FiO2 as tolerated CXR shows bilateral interstitial changes? fibrosis? 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
--- NOTE | 2020-05-08 11:18 | Nephrology Progress Note ---
Assessment/Plan Problem List: (1) Dehydration (2) Electrolyte imbalance (3) COVID-19 virus infection (4) Pneumonia (5) DMII (diabetes mellitus, type 2) (6) Protein malnutrition Assessment Azotemia, hypernatremia Hypoalbuminemia Staff Otilia bacteremia COVID-19 isolation, pneumonia, bilateral infiltrate Hypertension Diabetes mellitus History of smoking Plan May 08: Labs reviewed. Renal parameters stable. Medication list reviewed. Continue per consultants. May 07: No labs drawn today reviewed. Clinically stable. Medication list reviewed. Will check lab tomorrow. Continue per consultants. May 06: Labs reviewed. Renal parameters stable. Continue per consultants. May 05: Labs reviewed. Renal parameters stable. Patient is due to be transferred to [facility]. Continue per consultants. Medication list reviewed. May 04: Labs reviewed. Renal parameters stable. Overall status unchanged. Remains full code. Fed through GT tube. Trach to vent. FiO2 45%. Continue per consultants. May 03: No CHEM panel drawn today. Patient clinically stable. Has trach to vent and PEG. Will check lab tomorrow. May 02: Labs reviewed. Status quo. Patient is trached and vented. Also has PEG. Is full code. Stable from renal standpoint of view. May 01: Labs reviewed. Status quo. Patient has trach connected to vent. Has PEG. He is full code. FiO2 50%. April 30: Status quo. Labs reviewed. Renal parameters stable. Medication list reviewed. April 29: Status quo. Received PEG yesterday. Has trach connected to vent. FiO2 40%. Labs reviewed. Medication list reviewed. Continue same April 28: Status quo. Labs reviewed. Renal parameters stable. Patient n.p.o. due for PEG insertion. IV changed to D5 normal saline. Continue per consultants. April 27: Status quo. Labs reviewed. Medication list reviewed. Stable from renal standpoint of view. Abnormal electrolytes addressed. April 26: Patient is now trached and connected to vent. FiO2 70%. Labs reviewed. Renal parameters stable. Medication list reviewed. Continue per consultants. April 25: Status quo. Full code. FiO2 55%. No labs drawn today. Continue to monitor electrolytes and renal parameters. Continue per consultants. April 24: Status quo. Full code. Intubated on ventilator. FiO2 65%. Labs reviewed. Renal parameters and electrolytes stable. April 23: Status unchanged. Full code. Intubated on ventilator. FiO2 75%. Labs reviewed. Renal parameters stable. Continue per consultants. April 22: Labs reviewed. Patient remains intubated on ventilator and full code. FiO2 90%. Day 77 hospitalization. Not much to add from renal standpoint of view April 21: No CHEM panel drawn today. FiO2 60%. Patient full code. Continue per consultants. April 20: Labs reviewed. Renal parameters stable. Patient remains full code. Intubated on ventilator with FiO2 currently at 70%. Continue per consultants. April 19: No labs drawn today. Remains full code on FiO2 of 100%. Continue per consultants. April 18: Status quo. Labs reviewed. Renal parameters stable. April 17: Status quo. Intubated on ventilator. Full code. Labs reviewed. Electrolytes and renal parameters stable. Continue per consultants. April 16: Girlfriend in the room. Patient awake. Intubated. Full code. Labs reviewed. Abnormal electrolyte addressed. Continue per consultants. April 15: Labs reviewed. Electrolytes and renal parameters stable. Patient full code. Continues to be intubated on ventilator. April 14: Status quo. Labs reviewed. Remains intubated on ventilator. Full code. Continue per consultants. April 13: Status quo. Labs reviewed. Renal parameters electrolytes stable. Continue per current treatment plan. April 12: On higher FiO2. Will resume Lasix daily. Continue to monitor electrolytes and renal parameters. Per consultants. April 11: FiO2 went up to 85%. Renal parameters and electrolytes reasonably well-maintained. Will monitor serum potassium. Will give IV Lasix. April 10: Status quo. Labs reviewed. Remains intubated on ventilator with FiO2 of 65%. Remains full code. Stable from renal standpoint to view. Repeat vitamin D level on April 08 pending April 09: Status quo. Labs reviewed. Stable from renal standpoint of view. Continue per consultants. April 08: Discussed with RN. Labs reviewed. Clinically improving. Requires lower PEEP. Continue per pulmonary. Continue to monitor renal parameters. April 07: Remains full code and on ventilator. Labs reviewed. Renal parameters and electrolytes stable. Continue per consultants. Blood pressure marginally improved. April 06: Full code. On ventilator. Blood pressure 80-90 systolic. IV Lasix discontinued. Free water through tube feeding ordered. Continue to monitor electrolytes and serum sodium. Down on fentanyl as possible. Discussed with RN Kevin. Clonidine patch discontinued. April 05: Status quo. Remains full code. Remains intubated. Labs reviewed. Renal parameters stable. Serum sodium 150 unchanged. Continue per consultants. April 04: Remains intubated and on ventilator. Remains full code. Labs reviewed. Serum sodium 150 unchanged. Renal parameters stable. Continue per ID and pulmonary. April 03: Intubated. On ventilator. Full code. Labs reviewed. Serum sodium 150 unchanged. Continue to monitor renal parameters. Continue per pulmonary and ID. April 02: Full code. On ventilator. Discussed with RN. Serum sodium slightly higher. Will cut down on IV Lasix. Continue per consultants. Continue to monitor renal parameters and electrolytes. April 01: Full code. Remains on ventilator. Labs reviewed. Stable from renal standpoint of view. Continue per consultants. March 31: Full code . Remains intubated on ventilator. Labs reviewed. Patient appears toxic. Discussed with RN. Maintenance IV discontinued. Medication list reviewed. Blood pressure medication stopped due to low blood pressure. Levemir insulin stopped. Continue monitor blood sugar and sliding scale insulin. March 30: Full code. On ventilator. Labs reviewed. Clonidine patch dose increased. Lasix increased. 3% saline 1 time ordered. Continue to monitor electrolytes and renal parameters. March 29: Remains full code. On mechanical ventilation. On tube feeding. Will DC TPN. Will start on maintenance IV fluid. Continue to monitor renal parameters. March 28: On BiPAP. Full code. On TPN. Labs reviewed. Discussed with pharmacy. Continue as is. Watch serum potassium. March 27: Remains on BiPAP. No chemistry panel done today. Full code. On TPN. Will check lab tomorrow. March 26: Remains on BiPAP. Remains on TPN. Labs reviewed. Electrolytes and chemistries within normal limits. Continue as is. March 25: Remains on TPN. Labs reviewed. Discussed with pharmacy. Change IV Protonix to p.o. Continue 3% saline infusion with Lasix. Patient full code. March 24: Continue to be on TPN. Labs are reviewed. Aim to collect electrolytes. Discussed with pharmacy. Continue current consultants. March 23: Continues to be on TPN. Labs reviewed. Electrolytes and chemistries all acceptable. Discussed with pharmacy. Continue current management. March 22: On TPN. Labs reviewed. Low sodium noted. 3% saline to be continued. Continue to monitor electrolytes. Discussed with pharmacy. March 21: On TPN. Labs reviewed. Continue 3% saline and Lasix for mild hyponatremia. Continue TPN as these. Discussed with pharmacy. March 20: Remains on TPN. Labs reviewed. Serum sodium higher on IV Lasix and 3% saline infusion. Continue TPN as is. Continue to monitor renal parameters and electrolytes. Discussed with Dr. Mata March 19: Remains on TPN. Labs reviewed. Serum sodium 128. Will give 3% nieves ine with IV Lasix. Continue to monitor electrolytes. No change in TPN composition. Discussed with pharmacy. March 18: Remains on TPN. Labs reviewed. Discussed with pharmacist. Will give 3 doses of IV Lasix 20 mg every 8 hours. Continue to monitor serum sodium electrolytes uric acid. White blood cells down. Continue per consultants. March 17: On TPN. Labs reviewed. Discussed with pharmacist. Sodium content increase. Continue to monitor CMP. Patient continues to have leukocytosis. March 16: On TPN. Labs reviewed. Discussed with pharmacist. Appropriate changes made. Continue to monitor electrolytes. March 15: Remains on TPN. Labs reviewed. Discussed with pharmacist. Continue per current management. March 14: Remains on TPN. Labs reviewed, stable. Vitamin D level low, replacement ordered. Continue to monitor electrolytes and renal parameters. March 13: Patient remains on TPN. Discussed with pharmacist. TPN's sodium content adjusted. Labs reviewed. Continue to monitor electrolytes. Blood pressure remains stable. Continue per consultants. March 12: Patient on TPN. Labs reviewed. CPK remains elevated. Abnormal electrolytes and high blood sugar discussed with pharmacist and TPN adjusted. Continue to monitor labs. Oral Protonix added. Ibuprofen discontinued. Can continue to monitor electrolytes and chemistries. Levemir for high blood sugar added. March 11: Patient on TPN. Labs as of 11:15 AM is still pending. Continue per current treatment plan. Will check labs and adjust TPN as needed. Continue per consultants. March 10: Patient on TPN. Labs reviewed. Electrolytes overall stable. CPK is elevated. Will monitor electrolyte, CPK level, lipid panel. Continue per consultants. Discussed with pharmacist. Discussed with RN. Nutritional evaluation noted. Previously: D5W 100 cc an hour Monitor electrolytes renal parameters TPN and Intralipid ordered Will follow Continue per consultants Dietary consult requested Subjective ROS Limited/Unobtainable: Yes Objective Objective Last 24 Hour Vital Signs Date Time Temp Pulse Resp B/P (MAP) Pulse Ox O2 Delivery O2 Flow Rate FiO2 05/08/20 08:43 105 20 138/70 97 05/08/20 08:13 118 146/68 05/08/20 08:13 118 20 146/68 97 05/08/20 08:00 45 05/08/20 08:00 Mechanical Ventilator 05/08/20 08:00 98.4 120 22 146/78 (100) 98 05/08/20 08:00 128 05/08/20 06:55 127 28 45 05/08/20 06:00 114/71 (85) 05/08/20 04:31 164/104 05/08/20 04:00 89 05/08/20 04:00 45 05/08/20 04:00 98.4 102 22 164/104 (124) 98 05/08/20 04:00 Mechanical Ventilator 05/08/20 03:13 97 21 45 05/08/20 00:00 98.1 89 25 130/79 (96) 98 05/08/20 00:00 45 05/08/20 00:00 Mechanical Ventilator 05/07/20 23:27 91 05/07/20 23:03 103 20 45 05/07/20 20:31 90 05/07/20 20:00 45 05/07/20 20:00 Mechanical Ventilator 05/07/20 20:00 98.3 87 24 146/95 (112) 97 05/07/20 19:25 81 21 45 05/07/20 18:30 95 22 142/87 97 05/07/20 18:00 95 142/87 05/07/20 18:00 95 22 142/87 97 05/07/20 16:49 98.1 05/07/20 16:00 95 05/07/20 16:00 98.0 98 22 142/87 (105) 97 05/07/20 16:00 Mechanical Ventilator 05/07/20 16:00 45 05/07/20 15:32 97 24 45 05/07/20 12:38 107 31 125/81 93 05/07/20 12:08 107 31 125/81 93 05/07/20 12:00 91 05/07/20 11:26 98.1 Intake and Output 05/07/20 05/08/20 19:00 07:00 Intake Total 640 ml 730 ml Output Total 1700 ml Balance -1060 ml 730 ml Free Water 80 ml Tube Feeding 600 ml 600 ml Other 40 ml 50 ml Output Urine Total 1700 ml Current Medications Medications (Trade) Dose Ordered Sig/Dennis Route PRN Reason Start Time Stop Time Status Last Admin Dose Admin Acetaminophen (Tylenol) 650 mg Q4H PRN GT Mild Pain (Pain Scale 1-3) 05/02/20 08:45 06/01/20 08:44 05/02/20 09:04 Acetaminophen/ Hydrocodone Bitart ([place] 5/325) 1 tab Q4H GT 05/02/20 11:00 05/09/20 10:59 05/08/20 11:09 Amlodipine Besylate (Norvasc) 2.5 mg BID GT 05/02/20 18:00 06/02/20 08:59 05/08/20 08:13 Chlorhexidine Gluconate (Marlen-Hex 2%) 1 applic DAILY@1999 TOPIC 03/30/20 20:00 06/28/20 19:59 05/07/20 20:14 Dextrose (Dextrose 50%) 25 ml Q30M PRN IV Hypoglycemia 03/29/20 20:45 06/27/20 20:44 Dextrose (Dextrose 50%) 50 ml Q30M PRN IV Hypoglycemia 03/29/20 20:45 06/27/20 20:44 Enoxaparin Sodium (Lovenox) 80 mg EVERY 12 HOURS SUBQ 04/06/20 21:00 07/05/20 20:59 05/08/20 08:14 Famotidine (Pepcid I.v.) 20 mg Q12HR PRN IVP HEART BURN 05/02/20 15:15 06/01/20 15:14 05/02/20 22:10 Fluconazole (Diflucan) 100 mg DAILY ORAL 05/06/20 09:00 05/13/20 08:59 05/08/20 08:11 Hydralazine HCl (Apresoline) 10 mg Q4H PRN IV For High Blood Pressure 03/30/20 12:15 06/28/20 12:14 05/08/20 04:31 Insulin Aspart (NovoLOG) Q6HR SUBQ 03/30/20 00:00 06/28/20 00:00 05/01/20 18:00 Lansoprazole (Prevacid) 30 mg DAILY GT 05/02/20 09:00 06/01/20 08:59 05/08/20 08:13 Lorazepam (Ativan) 1 mg THREE TIMES A DAY ORAL 05/01/20 13:00 05/08/20 12:59 05/08/20 08:13 Prednisone (predniSONE) 10 mg DAILY ORAL 05/06/20 09:00 06/05/20 08:59 05/08/20 08:12 Quetiapine Fumarate (SEROqueL) 50 mg EVERY 8 HOURS ORAL 04/29/20 12:00 06/11/20 11:59 05/08/20 05:35 Trimethoprim/ Sulfamethoxazole (Bactrim-DS) 1 tab DAILY ORAL 04/30/20 09:00 05/11/20 08:59 05/08/20 08:11 Laboratory Tests 05/07/20 18:06: POC Whole Blood Glucose [Pending] 05/07/20 23:16: POC Whole Blood Glucose 92 05/08/20 03:48: White Blood Count 7.6, Red Blood Count 3.80L, Hemoglobin 10.9L, Hematocrit 34.7L , Mean Corpuscular Volume 91, Mean Corpuscular Hemoglobin 28.7, Mean Corpuscular Hemoglobin Concent 31.4L, Red Cell Distribution Width 16.6H, Platelet Count 312, Mean Platelet Volume 6.5, Neutrophils (%) (Auto) 74.3, Lymphocytes (%) (Auto) 19.0L, Monocytes (%) (Auto) 4.8, Eosinophils (%) (Auto) 1.2, Basophils (%) (Auto) 0.7, Sodium Level 138, Potassium Level 3.8, Chloride Level 100, Carbon Dioxide Level 30, Anion Gap 8, Blood Urea Nitrogen 20H, Creatinine 0.4L, Estimat Glomerular Filtration Rate > 60, Glucose Level 92, Calcium Level 8.9, Phosphorus Level 3.1, Magnesium Level 2.1, Total Bilirubin 0.4, Aspartate Amino Transf (AST/SGOT) 15, Alanine Aminotransferase (ALT/SGPT) 29, Alkaline Phosphatase 88, C-Reactive Protein, Quantitative 6.6H, Pro-B-Type Natriuretic Peptide 187H, Total Protein 6.4, Albumin 2.9L, Globulin 3.5, Albumin/Globulin Ratio 0.8L 05/08/20 05:32: POC Whole Blood Glucose [Pending] Height (Feet): 5 Height (Inches): 10.00 Weight (Pounds): 243 General Appearance: no apparent distress EENT: other - Trach to vent Cardiovascular: tachycardia Respiratory/Chest: decreased breath sounds Abdomen: distended, other - PEG Rubin Cooper MD May 08, 2020 11:18
--- NOTE | 2020-05-08 11:21 | Surgery Progress Note ---
Surgery Progress Note Subjective Procedure Performed tracheostomy Symptoms: improved Objective Last 24 Hour Vital Signs Date Time Temp Pulse Resp B/P (MAP) Pulse Ox O2 Delivery O2 Flow Rate FiO2 05/08/20 08:43 105 20 138/70 97 05/08/20 08:13 118 146/68 05/08/20 08:13 118 20 146/68 97 05/08/20 08:00 45 05/08/20 08:00 Mechanical Ventilator 05/08/20 08:00 98.4 120 22 146/78 (100) 98 05/08/20 08:00 128 05/08/20 06:55 127 28 45 05/08/20 06:00 114/71 (85) 05/08/20 04:31 164/104 05/08/20 04:00 89 05/08/20 04:00 45 05/08/20 04:00 98.4 102 22 164/104 (124) 98 05/08/20 04:00 Mechanical Ventilator 05/08/20 03:13 97 21 45 05/08/20 00:00 98.1 89 25 130/79 (96) 98 05/08/20 00:00 45 05/08/20 00:00 Mechanical Ventilator 05/07/20 23:27 91 05/07/20 23:03 103 20 45 05/07/20 20:31 90 05/07/20 20:00 45 05/07/20 20:00 Mechanical Ventilator 05/07/20 20:00 98.3 87 24 146/95 (112) 97 05/07/20 19:25 81 21 45 05/07/20 18:30 95 22 142/87 97 05/07/20 18:00 95 142/87 05/07/20 18:00 95 22 142/87 97 05/07/20 16:49 98.1 05/07/20 16:00 95 05/07/20 16:00 98.0 98 22 142/87 (105) 97 05/07/20 16:00 Mechanical Ventilator 05/07/20 16:00 45 05/07/20 15:32 97 24 45 05/07/20 12:38 107 31 125/81 93 05/07/20 12:08 107 31 125/81 93 05/07/20 12:00 91 05/07/20 11:26 98.1 I&O Intake and Output 05/07/20 05/08/20 19:00 07:00 Intake Total 640 ml 730 ml Output Total 1700 ml Balance -1060 ml 730 ml Free Water 80 ml Tube Feeding 600 ml 600 ml Other 40 ml 50 ml Output Urine Total 1700 ml Dressing: dry Wound: clean Cardiovascular: RSR Respiratory: decreased breath sounds Abdomen: soft, flat, non-tender, present bowel sounds, non-distended Extremities: no edema, no tenderness, no cyanosis Laboratory Tests Test 05/07/20 18:06 05/07/20 23:16 05/08/20 03:48 05/08/20 05:32 POC Whole Blood Glucose Pending 92 MG/DL (74-106) Pending White Blood Count 7.6 K/UL (4.8-10.8) Red Blood Count 3.80 M/UL (4.70-6.10) L Hemoglobin 10.9 G/DL (14.2-18.0) L Hematocrit 34.7 % (42.0-52.0) L Mean Corpuscular Volume 91 FL (80-99) Mean Corpuscular Hemoglobin 28.7 PG (27.0-31.0) Mean Corpuscular Hemoglobin Concent 31.4 G/DL (32.0-36.0) L Red Cell Distribution Width 16.6 % (11.6-14.8) H Platelet Count 312 K/UL (150-450) Mean Platelet Volume 6.5 FL (6.5-10.1) Neutrophils (%) (Auto) 74.3 % (45.0-75.0) Lymphocytes (%) (Auto) 19.0 % (20.0-45.0) L Monocytes (%) (Auto) 4.8 % (1.0-10.0) Eosinophils (%) (Auto) 1.2 % (0.0-3.0) Basophils (%) (Auto) 0.7 % (0.0-2.0) Sodium Level 138 MMOL/L (136-145) Potassium Level 3.8 MMOL/L (3.5-5.1) Chloride Level 100 MMOL/L (98-107) Carbon Dioxide Level 30 MMOL/L (21-32) Anion Gap 8 mmol/L (5-15) Blood Urea Nitrogen 20 mg/dL (7-18) H Creatinine 0.4 MG/DL (0.55-1.30) L Estimat Glomerular Filtration Rate > 60 mL/min (>60) Glucose Level 92 MG/DL (74-106) Calcium Level 8.9 MG/DL (8.5-10.1) Phosphorus Level 3.1 MG/DL (2.5-4.9) Magnesium Level 2.1 MG/DL (1.8-2.4) Total Bilirubin 0.4 MG/DL (0.2-1.0) Aspartate Amino Transf (AST/SGOT) 15 U/L (15-37) Alanine Aminotransferase (ALT/SGPT) 29 U/L (12-78) Alkaline Phosphatase 88 U/L (46-116) C-Reactive Protein, Quantitative 6.6 mg/dL (0.00-0.90) H Pro-B-Type Natriuretic Peptide 187 pg/mL (0-125) H Total Protein 6.4 G/DL (6.4-8.2) Albumin 2.9 G/DL (3.4-5.0) L Globulin 3.5 g/dL Albumin/Globulin Ratio 0.8 (1.0-2.7) L Plan Problems: (1) Pneumonia (2) Staphylococcus aureus bacteremia (3) COVID-19 virus infection (4) Chest pain (5) Hypertension (6) Dehydration (7) Electrolyte imbalance (8) DMII (diabetes mellitus, type 2) (9) Protein malnutrition (10) Respiratory insufficiency Assessment & Plan: 64-year-old male with respiratory insufficiency intubated in an intensive care unit. Patient has been unable to safely wean off ventilatory support. Surgery called to evaluate for tracheostomy. After careful evaluation patient is a candidate for tracheostomy. In the meantime will obtain consent. If consent obtained will proceed with scheduling. Thank you for your participation's care will follow recommendations improving trach okay agitated weaning sedation no n/v cont weaning transition to oral meds via g tube get off drips improving downgraded weaning well more alert and awake responsive will need placement trach collar consideration Booker Rausch May 08, 2020 11:21
--- NOTE | 2020-05-08 13:05 | General Progress Note ---
Subjective ROS Limited/Unobtainable: No Allergies: Coded Allergies: No Known Allergies (Unverified , 02/05/20) Objective Last 24 Hour Vital Signs Date Time Temp Pulse Resp B/P (MAP) Pulse Ox O2 Delivery O2 Flow Rate FiO2 05/08/20 12:00 98.3 110 23 127/83 (98) 93 05/08/20 12:00 Mechanical Ventilator 05/08/20 12:00 99 05/08/20 12:00 45 05/08/20 08:43 105 20 138/70 97 05/08/20 08:13 118 146/68 05/08/20 08:13 118 20 146/68 97 05/08/20 08:00 45 05/08/20 08:00 Mechanical Ventilator 05/08/20 08:00 98.4 120 22 146/78 (100) 98 05/08/20 08:00 128 05/08/20 06:55 127 28 45 05/08/20 06:00 114/71 (85) 05/08/20 04:31 164/104 05/08/20 04:00 89 05/08/20 04:00 45 05/08/20 04:00 98.4 102 22 164/104 (124) 98 05/08/20 04:00 Mechanical Ventilator 05/08/20 03:13 97 21 45 05/08/20 00:00 98.1 89 25 130/79 (96) 98 05/08/20 00:00 45 05/08/20 00:00 Mechanical Ventilator 05/07/20 23:27 91 05/07/20 23:03 103 20 45 05/07/20 20:31 90 05/07/20 20:00 45 05/07/20 20:00 Mechanical Ventilator 05/07/20 20:00 98.3 87 24 146/95 (112) 97 05/07/20 19:25 81 21 45 05/07/20 18:30 95 22 142/87 97 05/07/20 18:00 95 142/87 05/07/20 18:00 95 22 142/87 97 05/07/20 16:49 98.1 05/07/20 16:00 95 05/07/20 16:00 98.0 98 22 142/87 (105) 97 05/07/20 16:00 Mechanical Ventilator 05/07/20 16:00 45 05/07/20 15:32 97 24 45 Intake and Output 05/07/20 05/08/20 19:00 07:00 Intake Total 640 ml 730 ml Output Total 1700 ml Balance -1060 ml 730 ml Free Water 80 ml Tube Feeding 600 ml 600 ml Other 40 ml 50 ml Output Urine Total 1700 ml Laboratory Tests 05/07/20 18:06: POC Whole Blood Glucose [Pending] 05/07/20 23:16: POC Whole Blood Glucose 92 05/08/20 03:48: White Blood Count 7.6, Red Blood Count 3.80L, Hemoglobin 10.9L, Hematocrit 34.7L , Mean Corpuscular Volume 91, Mean Corpuscular Hemoglobin 28.7, Mean Corpuscular Hemoglobin Concent 31.4L, Red Cell Distribution Width 16.6H, Platelet Count 312, Mean Platelet Volume 6.5, Neutrophils (%) (Auto) 74.3, Lymphocytes (%) (Auto) 19.0L, Monocytes (%) (Auto) 4.8, Eosinophils (%) (Auto) 1.2, Basophils (%) (Auto) 0.7, Sodium Level 138, Potassium Level 3.8, Chloride Level 100, Carbon Dioxide Level 30, Anion Gap 8, Blood Urea Nitrogen 20H, Creatinine 0.4L, Estimat Glomerular Filtration Rate > 60, Glucose Level 92, Calcium Level 8.9, Phosphorus Level 3.1, Magnesium Level 2.1, Total Bilirubin 0.4, Aspartate Amino Transf (AST/SGOT) 15, Alanine Aminotransferase (ALT/SGPT) 29, Alkaline Phosphatase 88, C-Reactive Protein, Quantitative 6.6H, Pro-B-Type Natriuretic Peptide 187H, Total Protein 6.4, Albumin 2.9L, Globulin 3.5, Albumin/Globulin Ratio 0.8L 05/08/20 05:32: POC Whole Blood Glucose [Pending] Height (Feet): 5 Height (Inches): 10.00 Weight (Pounds): 243 General Appearance: no apparent distress EENT: normal ENT inspection Neck: supple Cardiovascular: normal rate Respiratory/Chest: decreased breath sounds Abdomen: hypoactive bowel sounds Extremities: non-tender Assessment/Plan Status: stable, unchanged Assessment/Plan: hep c + but neg RNA GTF reglan 10 mg tolerating TF repeat labs fu LFTS>>>improving pepcid iv will fu Vosoghi,Da MD May 08, 2020 13:05
--- NOTE | 2020-05-08 19:13 | Cardiology Progress Note ---
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 will need rehab and i discussed that with him he needs to come off the vent to be able to ge acute rehab Subjective Cardiovascular: Denies: chest pain, lightheadedness, palpitations Respiratory: Denies: shortness of breath Gastrointestinal/Abdominal: Denies: abdominal pain Genitourinary: Denies: burning Objective Last 24 Hour Vital Signs Date Time Temp Pulse Resp B/P (MAP) Pulse Ox O2 Delivery O2 Flow Rate FiO2 05/08/20 18:12 83 126/87 05/08/20 16:00 Mechanical Ventilator 05/08/20 16:00 35 05/08/20 16:00 98.2 84 20 126/87 (100) 97 05/08/20 16:00 83 05/08/20 15:40 85 20 35 05/08/20 14:35 35 05/08/20 12:00 98.3 110 23 127/83 (98) 93 05/08/20 12:00 Mechanical Ventilator 05/08/20 12:00 99 05/08/20 12:00 45 05/08/20 11:35 86 20 45 05/08/20 08:43 105 20 138/70 97 05/08/20 08:13 118 146/68 05/08/20 08:13 118 20 146/68 97 05/08/20 08:00 45 05/08/20 08:00 Mechanical Ventilator 05/08/20 08:00 98.4 120 22 146/78 (100) 98 05/08/20 08:00 128 05/08/20 06:55 127 28 45 05/08/20 06:00 114/71 (85) 05/08/20 04:31 164/104 05/08/20 04:00 89 3/8/21 04:00 45 05/08/20 04:00 98.4 102 22 164/104 (124) 98 05/08/20 04:00 Mechanical Ventilator 05/08/20 03:13 97 21 45 05/08/20 00:00 98.1 89 25 130/79 (96) 98 05/08/20 00:00 45 05/08/20 00:00 Mechanical Ventilator 05/07/20 23:27 91 05/07/20 23:03 103 20 45 05/07/20 20:31 90 05/07/20 20:00 45 05/07/20 20:00 Mechanical Ventilator 05/07/20 20:00 98.3 87 24 146/95 (112) 97 05/07/20 19:25 81 21 45 General Appearance: no apparent distress, alert, on vent Neck: supple Cardiovascular: normal rate Respiratory/Chest: lungs clear Abdomen: normal bowel sounds, non tender, soft Extremities: no swelling Intake and Output 05/07/20 05/08/20 19:00 07:00 Intake Total 640 ml 780 ml Output Total 1700 ml Balance -1060 ml 780 ml Free Water 80 ml Tube Feeding 600 ml 650 ml Other 40 ml 50 ml Output Urine Total 1700 ml Laboratory Tests Test 05/07/20 23:16 05/08/20 03:48 05/08/20 05:32 POC Whole Blood Glucose 92 MG/DL (74-106) Pending White Blood Count 7.6 K/UL (4.8-10.8) Red Blood Count 3.80 M/UL (4.70-6.10) L Hemoglobin 10.9 G/DL (14.2-18.0) L Hematocrit 34.7 % (42.0-52.0) L Mean Corpuscular Volume 91 FL (80-99) Mean Corpuscular Hemoglobin 28.7 PG (27.0-31.0) Mean Corpuscular Hemoglobin Concent 31.4 G/DL (32.0-36.0) L Red Cell Distribution Width 16.6 % (11.6-14.8) H Platelet Count 312 K/UL (150-450) Mean Platelet Volume 6.5 FL (6.5-10.1) Neutrophils (%) (Auto) 74.3 % (45.0-75.0) Lymphocytes (%) (Auto) 19.0 % (20.0-45.0) L Monocytes (%) (Auto) 4.8 % (1.0-10.0) Eosinophils (%) (Auto) 1.2 % (0.0-3.0) Basophils (%) (Auto) 0.7 % (0.0-2.0) Sodium Level 138 MMOL/L (136-145) Potassium Level 3.8 MMOL/L (3.5-5.1) Chloride Level 100 MMOL/L (98-107) Carbon Dioxide Level 30 MMOL/L (21-32) Anion Gap 8 mmol/L (5-15) Blood Urea Nitrogen 20 mg/dL (7-18) H Creatinine 0.4 MG/DL (0.55-1.30) L Estimat Glomerular Filtration Rate > 60 mL/min (>60) Glucose Level 92 MG/DL (74-106) Calcium Level 8.9 MG/DL (8.5-10.1) Phosphorus Level 3.1 MG/DL (2.5-4.9) Magnesium Level 2.1 MG/DL (1.8-2.4) Total Bilirubin 0.4 MG/DL (0.2-1.0) Aspartate Amino Transf (AST/SGOT) 15 U/L (15-37) Alanine Aminotransferase (ALT/SGPT) 29 U/L (12-78) Alkaline Phosphatase 88 U/L (46-116) C-Reactive Protein, Quantitative 6.6 mg/dL (0.00-0.90) H Pro-B-Type Natriuretic Peptide 187 pg/mL (0-125) H Total Protein 6.4 G/DL (6.4-8.2) Albumin 2.9 G/DL (3.4-5.0) L Globulin 3.5 g/dL Albumin/Globulin Ratio 0.8 (1.0-2.7) L Objective pt seen persoanlly Manan Awan MD May 08, 2020 19:13
--- NOTE | 2020-05-08 19:31 | NUR ---
NURSE HAND-OFF REPORT: Important Events on Shift:NA Patient Status: Stable Diet: Glucerna 1.5 Pending Orders: NA Pending Results/Labs:NA Pending MD notification:NA Latest Vital Signs: Temperature 98.2 , Pulse 83 , B/P 126 /87 , Respiratory Rate 20 , O2 SAT 97 , Mechanical Ventilator, O2 Flow Rate . Vital Sign Comment: Stable EKG Rhythm: Sinus Rhythm Rhythm change?: N MD Notified?: N -Dr.Toluie INTERIANO Response: Message left await call Latest Hassan Fall Score: 35 Fall Risk: Medium Risk Safety Measures: Call light Within Reach, Bed Alarm Zone 1, Side Rails Side Rails x3, Bed position Low and Locked. Fall Precautions: Yellow Socks Yellow Gown Door Sign Patient Fall Education Report given to PRIYANKA Eubanks.
--- NOTE | 2020-05-08 19:42 | NUR ---
NURSE NOTES: Received report from PRIYANKA Looney. Pt is awake, alert, non-verbal due to trach, can communicate with body language and writing. SpO2 98% on AC 18, TV 450, FiO2 35%, +5, ST of 103 in monitoring manager. GT is intact and flushing well, no residuals, running glucerna 1.5 at 50cc/hr. Rectal tube is intact, joseph is intact draining well to gravity. R UA 2x intact and asymptomatic, dressing changed 05/08. HOB elevated, call light within reach, side rails x3, bed alarmed, locked, and in lowest position. Will continue plan of care. Will continue to monitor.
[2020-05-08] MEDS: Dyna-Hex 2% Top Sol 2oz TOPIC SCH (20:23)
[2020-05-08] MEDS: Acetaminophen 650mg/20.3ml GT PRN (20:28)
--- NOTE | 2020-05-08 22:10 | NUR ---
NURSE NOTES: Turned and repositioned pt. Pain meds given. Pt complaining of pain the the left leg. Pulses present in the B LE. No s/s of DVT noted but will endorse.
[2020-05-09] VITALS: BP 151/84
--- NOTE | 2020-05-09 01:16 | NUR ---
NURSE NOTES: Offered pt oral care; pt declined. Pt repositioned. Will continue to monitor, will continue plan of care.
[2020-05-09] MEDS: HYDROcodone/Acetamin 5/325 tab GT SCH ×2 (02:44→06:28)
--- NOTE | 2020-05-09 03:22 | NUR ---
NURSE NOTES: Given bedbath. All linens and gown changed. Turned and repositioned. Pt cannot tolerate supine position for a prolong period of time; desaturates to 80s when HOB flat for >20s. No BM noted. Pt refused oral care again, RN explained the importance of oral care but still refused. R UA PICC 2x TKO initiated. Will continue to monitor. Will continue plan of care.
[2020-05-09 04:00] VITALS: BP 152/81
[2020-05-09 05:06] LABS: BASOPHILS % (AUTO) 0.6 % (0.0-2.0); HEMATOCRIT 35.6 % (42.0-52.0); HEMOGLOBIN 11.4 G/DL (14.2-18.0); LYMPHOCYTES % (AUTO) 19.9 % (20.0-45.0); MEAN CORPUSCULAR VOLUME 90 FL (80-99); MONOCYTES % (AUTO) 4.9 % (1.0-10.0); NEUTROPHILS % (AUTO) 73.6 % (45.0-75.0); PLATELET COUNT 337 K/UL (150-450); RED BLOOD COUNT 3.97 M/UL (4.70-6.10); RED CELL DISTRIBUTION WIDTH 15.8 % (11.6-14.8); WHITE BLOOD COUNT 9.2 K/UL (4.8-10.8)
[2020-05-09] MEDS: NovoLOG Insulin Flexpen SUBQ SCH ×3 (05:15→17:15)
[2020-05-09 05:33] LABS: ALANINE AMINOTRANSFERASE 30 U/L (12-78); ALBUMIN 3.1 G/DL (3.4-5.0); ALBUMIN/GLOBULIN RATIO 0.9 (1.0-2.7); ALKALINE PHOSPHATASE 94 U/L (46-116); ANION GAP 9 mmol/L (5-15); ASPARTATE AMINO TRANSFERASE 17 U/L (15-37); BILIRUBIN,TOTAL 0.5 MG/DL (0.2-1.0); BLOOD UREA NITROGEN 15 mg/dL (7-18); CALCIUM 9.2 MG/DL (8.5-10.1); CARBON DIOXIDE 29 MMOL/L (21-32); CHLORIDE 97 MMOL/L (98-107); CREATININE 0.5 MG/DL (0.55-1.30); POTASSIUM 3.7 MMOL/L (3.5-5.1); SODIUM 135 MMOL/L (136-145)
--- NOTE | 2020-05-09 07:17 | NUR ---
NURSE HAND-OFF REPORT: Important Events on Shift:[No acute events] Patient Status: [Stable] Diet: [Glucerna 1.5 50cc/hr] Pending Orders: [NA] Pending Results/Labs:[] Pending MD notification:[] Latest Vital Signs: Temperature 97.9 , Pulse 104 , B/P 152 /81 , Respiratory Rate 24 , O2 SAT 93 , Mechanical Ventilator, O2 Flow Rate . Vital Sign Comment: [Stable] EKG Rhythm: Sinus Rhythm Rhythm change?: N MD Notified?: N -Dr.Toluie INTERIANO Response: Message left await call Latest Hassan Fall Score: 35 Fall Risk: Medium Risk Safety Measures: Call light Within Reach, Bed Alarm Zone 1, Side Rails Side Rails x3, Bed position Low and Locked. Fall Precautions: Yellow Socks Yellow Gown Door Sign Patient Fall Education Report given to [PRIYANKA Thomas].
--- NOTE | 2020-05-09 07:20 | NUR ---
NURSE NOTES: received patient report from corrine dobbins. patient is on bed asleep. not in acute distress.on vent at prescribed rate. afebrile. norco for pain per schedule. will follow plan of care.
[2020-05-09 07:56] VITALS: BP 121/67
[2020-05-09] MEDS: Fluconazole 100mg tab ORAL SCH (08:36)
[2020-05-09] MEDS: Bactrim-DS 1 tab ORAL SCH (08:36)
[2020-05-09] MEDS: Enoxaparin 80mg Inj SUBQ SCH ×2 (08:37→21:22)
--- NOTE | 2020-05-09 09:40 | General Progress Note ---
Subjective ROS Limited/Unobtainable: No Allergies: Coded Allergies: No Known Allergies (Unverified , 02/05/20) Objective Last 24 Hour Vital Signs Date Time Temp Pulse Resp B/P (MAP) Pulse Ox O2 Delivery O2 Flow Rate FiO2 05/09/20 08:36 94 121/67 05/09/20 08:00 35 05/09/20 07:56 97.6 94 24 121/67 (85) 96 05/09/20 07:49 88 05/09/20 07:36 95 21 35 05/09/20 04:00 97.9 104 24 152/81 (104) 93 05/09/20 04:00 Mechanical Ventilator 05/09/20 04:00 35 05/09/20 04:00 98 05/09/20 03:00 96 23 35 05/09/20 00:00 Mechanical Ventilator 05/09/20 00:00 35 05/09/20 00:00 97.7 103 14 151/84 (106) 98 05/09/20 00:00 95 05/08/20 23:15 95 23 35 05/08/20 20:00 98.2 93 14 164/108 (126) 97 05/08/20 20:00 Mechanical Ventilator 05/08/20 20:00 35 05/08/20 20:00 100 05/08/20 19:20 94 25 35 05/08/20 18:12 83 126/87 05/08/20 16:00 Mechanical Ventilator 05/08/20 16:00 35 05/08/20 16:00 98.2 84 20 126/87 (100) 97 05/08/20 16:00 83 05/08/20 15:40 85 20 35 05/08/20 14:35 35 05/08/20 12:00 98.3 110 23 127/83 (98) 93 05/08/20 12:00 Mechanical Ventilator 05/08/20 12:00 99 05/08/20 12:00 45 05/08/20 11:35 86 20 45 Intake and Output 05/08/20 05/09/20 19:00 07:00 Intake Total 900 ml 850 ml Output Total 800 ml 600 ml Balance 100 ml 250 ml Free Water 300 ml 300 ml Tube Feeding 600 ml 550 ml Output Urine Total 800 ml 600 ml Laboratory Tests 05/08/20 23:00: POC Whole Blood Glucose [Pending] 05/09/20 04:00: White Blood Count 9.2, Red Blood Count 3.97L, Hemoglobin 11.4L, Hematocrit 35.6L , Mean Corpuscular Volume 90, Mean Corpuscular Hemoglobin 28.6, Mean Corpuscular Hemoglobin Concent 32.0, Red Cell Distribution Width 15.8H, Platelet Count 337, Mean Platelet Volume 6.4L, Neutrophils (%) (Auto) 73.6, Lymphocytes (%) (Auto) 19.9L, Monocytes (%) (Auto) 4.9, Eosinophils (%) (Auto) 1.0, Basophils (%) (Auto) 0.6, Sodium Level 135L, Potassium Level 3.7, Chloride Level 97L, Carbon Dioxide Level 29, Anion Gap 9, Blood Urea Nitrogen 15, Creatinine 0.5L, Estimat Glomerular Filtration Rate > 60, Glucose Level 82, Calcium Level 9.2, Total Bilirubin 0.5, Aspartate Amino Transf (AST/SGOT) 17, Alanine Aminotransferase (ALT/SGPT) 30, Alkaline Phosphatase 94, Total Protein 6.7, Albumin 3.1L, Globulin 3.6, Albumin/Globulin Ratio 0.9L 05/09/20 05:10: POC Whole Blood Glucose 107H Height (Feet): 5 Height (Inches): 10.00 Weight (Pounds): 243 General Appearance: no apparent distress EENT: normal ENT inspection Neck: supple Cardiovascular: normal rate Respiratory/Chest: decreased breath sounds Abdomen: normal bowel sounds, non tender, soft Extremities: non-tender Assessment/Plan Status: stable, unchanged Assessment/Plan: hep c + but neg RNA GTF reglan 10 mg tolerating TF repeat labs fu LFTS>>>improving pepcid iv will fu Da Quintero MD May 09, 2020 09:40
--- NOTE | 2020-05-09 09:55 | Nephrology Progress Note ---
Assessment/Plan Problem List: (1) Dehydration (2) Electrolyte imbalance (3) COVID-19 virus infection (4) Pneumonia (5) DMII (diabetes mellitus, type 2) (6) Protein malnutrition Assessment Azotemia, hypernatremia Hypoalbuminemia Staff Otilia bacteremia COVID-19 isolation, pneumonia, bilateral infiltrate Hypertension Diabetes mellitus History of smoking Plan May 09: Labs reviewed. Serum sodium 135. Continue to monitor electrolytes. Medication list reviewed. Continue per current management. May 08: Labs reviewed. Renal parameters stable. Medication list reviewed. Continue per consultants. May 07: No labs drawn today reviewed. Clinically stable. Medication list reviewed. Will check lab tomorrow. Continue per consultants. May 06: Labs reviewed. Renal parameters stable. Continue per consultants. May 05: Labs reviewed. Renal parameters stable. Patient is due to be transferred to SCU. Continue per consultants. Medication list reviewed. May 04: Labs reviewed. Renal parameters stable. Overall status unchanged. Remains full code. Fed through GT tube. Trach to vent. FiO2 45%. Continue per consultants. May 03: No CHEM panel drawn today. Patient clinically stable. Has trach to vent and PEG. Will check lab tomorrow. May 02: Labs reviewed. Status quo. Patient is trached and vented. Also has PEG. Is full code. Stable from renal standpoint of view. May 01: Labs reviewed. Status quo. Patient has trach connected to vent. Has PEG. He is full code. FiO2 50%. April 30: Status quo. Labs reviewed. Renal parameters stable. Medication l ist reviewed. April 29: Status quo. Received PEG yesterday. Has trach connected to vent. FiO2 40%. Labs reviewed. Medication list reviewed. Continue same April 28: Status quo. Labs reviewed. Renal parameters stable. Patient n.p.o. due for PEG insertion. IV changed to D5 normal saline. Continue per consultants. April 27: Status quo. Labs reviewed. Medication list reviewed. Stable from renal standpoint of view. Abnormal electrolytes addressed. April 26: Patient is now trached and connected to vent. FiO2 70%. Labs reviewed. Renal parameters stable. Medication list reviewed. Continue per consultants. April 25: Status quo. Full code. FiO2 55%. No labs drawn today. Continue to monitor electrolytes and renal parameters. Continue per consultants. April 24: Status quo. Full code. Intubated on ventilator. FiO2 65%. Labs reviewed. Renal parameters and electrolytes stable. April 23: Status unchanged. Full code. Intubated on ventilator. FiO2 75%. Labs reviewed. Renal parameters stable. Continue per consultants. April 22: Labs reviewed. Patient remains intubated on ventilator and full code. FiO2 90%. Day 77 hospitalization. Not much to add from renal standpoint of view April 21: No CHEM panel drawn today. FiO2 60%. Patient full code. Continue per consultants. April 20: Labs reviewed. Renal parameters stable. Patient remains full code. Intubated on ventilator with FiO2 currently at 70%. Continue per consultants. April 19: No labs drawn today. Remains full code on FiO2 of 100%. Continue per consultants. April 18: Status quo. Labs reviewed. Renal parameters stable. April 17: Status quo. Intubated on ventilator. Full code. Labs reviewed. Electrolytes and renal parameters stable. Continue per consultants. April 16: Girlfriend in the room. Patient awake. Intubated. Full code. Labs reviewed. Abnormal electrolyte addressed. Continue per consultants. April 15: Labs reviewed. Electrolytes and renal parameters stable. Patient full code. Continues to be intubated on ventilator. April 14: Status quo. Labs reviewed. Remains intubated on ventilator. Full code. Continue per consultants. April 13: Status quo. Labs reviewed. Renal parameters electrolytes stable. Continue per current treatment plan. April 12: On higher FiO2. Will resume Lasix daily. Continue to monitor electrolytes and renal parameters. Per consultants. April 11: FiO2 went up to 85%. Renal parameters and electrolytes reasonably well-maintained. Will monitor serum potassium. Will give IV Lasix. April 10: Status quo. Labs reviewed. Remains intubated on ventilator with FiO2 of 65%. Remains full code. Stable from renal standpoint to view. Repeat vitamin D level on April 08 pending April 09: Status quo. Labs reviewed. Stable from renal standpoint of view. Continue per consultants. April 08: Discussed with RN. Labs reviewed. Clinically improving. Requires lower PEEP. Continue per pulmonary. Continue to monitor renal parameters. April 07: Remains full code and on ventilator. Labs reviewed. Renal parameters and electrolytes stable. Continue per consultants. Blood pressure marginally improved. April 06: Full code. On ventilator. Blood pressure 80-90 systolic. IV Lasix discontinued. Free water through tube feeding ordered. Continue to monitor electrolytes and serum sodium. Down on fentanyl as possible. Discussed with RN Kevin. Clonidine patch discontinued. April 05: Status quo. Remains full code. Remains intubated. Labs reviewed. Renal parameters stable. Serum sodium 150 unchanged. Continue per consultants. April 04: Remains intubated and on ventilator. Remains full code. Labs reviewed. Serum sodium 150 unchanged. Renal parameters stable. Continue per ID and pulmonary. April 03: Intubated. On ventilator. Full code. Labs reviewed. Serum sodium 150 unchanged. Continue to monitor renal parameters. Continue per pulmonary and ID. April 02: Full code. On ventilator. Discussed with RN. Serum sodium slightly higher. Will cut down on IV Lasix. Continue per consultants. Continue to monitor renal parameters and electrolytes. April 01: Full code. Remains on ventilator. Labs reviewed. Stable from renal standpoint of view. Continue per consultants. March 31: Full code . Remains intubated on ventilator. Labs reviewed. Patient appears toxic. Discussed with RN. Maintenance IV discontinued. Medication list reviewed. Blood pressure medication stopped due to low blood pressure. Levemir insulin stopped. Continue monitor blood sugar and sliding scale insulin. March 30: Full code. On ventilator. Labs reviewed. Clonidine patch dose increased. Lasix increased. 3% saline 1 time ordered. Continue to monitor electrolytes and renal parameters. March 29: Remains full code. On mechanical ventilation. On tube feeding. Will DC TPN. Will start on maintenance IV fluid. Continue to monitor renal parameters. March 28: On BiPAP. Full code. On TPN. Labs reviewed. Discussed with pharmacy. Continue as is. Watch serum potassium. March 27: Remains on BiPAP. No chemistry panel done today. Full code. On TPN. Will check lab tomorrow. March 26: Remains on BiPAP. Remains on TPN. Labs reviewed. Electrolytes and chemistries within normal limits. Continue as is. March 25: Remains on TPN. Labs reviewed. Discussed with pharmacy. Change IV Protonix to p.o. Continue 3% saline infusion with Lasix. Patient full code. March 24: Continue to be on TPN. Labs are reviewed. Aim to collect electrolytes. Discussed with pharmacy. Continue current consultants. March 23: Continues to be on TPN. Labs reviewed. Electrolytes and ch emistries all acceptable. Discussed with pharmacy. Continue current management. March 22: On TPN. Labs reviewed. Low sodium noted. 3% saline to be continued. Continue to monitor electrolytes. Discussed with pharmacy. March 21: On TPN. Labs reviewed. Continue 3% saline and Lasix for mild hyponatremia. Continue TPN as these. Discussed with pharmacy. March 20: Remains on TPN. Labs reviewed. Serum sodium higher on IV Lasix and 3% saline infusion. Continue TPN as is. Continue to monitor renal parameters and electrolytes. Discussed with Dr. Mata March 19: Remains on TPN. Labs reviewed. Serum sodium 128. Will give 3% saline with IV Lasix. Continue to monitor electrolytes. No change in TPN composition. Discussed with pharmacy. March 18: Remains on TPN. Labs reviewed. Discussed with pharmacist. Will give 3 doses of IV Lasix 20 mg every 8 hours. Continue to monitor serum sodium electrolytes uric acid. White blood cells down. Continue per consultants. March 17: On TPN. Labs reviewed. Discussed with pharmacist. Sodium content increase. Continue to monitor CMP. Patient continues to have leukocytosis. March 16: On TPN. Labs reviewed. Discussed with pharmacist. Appropriate changes made. Continue to monitor electrolytes. March 15: Remains on TPN. Labs reviewed. Discussed with pharmacist. Continue per current management. March 14: Remains on TPN. Labs reviewed, stable. Vitamin D level low, replacement ordered. Continue to monitor electrolytes and renal parameters. March 13: Patient remains on TPN. Discussed with pharmacist. TPN's sodium content adjusted. Labs reviewed. Continue to monitor electrolytes. Blood pressure remains stable. Continue per consultants. March 12: Patient on TPN. Labs reviewed. CPK remains elevated. Abnormal electrolytes and high blood sugar discussed with pharmacist and TPN adjusted. Continue to monitor labs. Oral Protonix added. Ibuprofen discontinued. Can continue to monitor electrolytes and chemistries. Levemir for high blood sugar added. March 11: Patient on TPN. Labs as of 11:15 AM is still pending. Continue per current treatment plan. Will check labs and adjust TPN as needed. Continue per consultants. March 10: Patient on TPN. Labs reviewed. Electrolytes overall stable. CPK is elevated. Will monitor electrolyte, CPK level, lipid panel. Continue per consultants. Discussed with pharmacist. Discussed with RN. Nutritional evaluation noted. Previously: D5W 100 cc an hour Monitor electrolytes renal parameters TPN and Intralipid ordered Will follow Continue per consultants Dietary consult requested Subjective ROS Limited/Unobtainable: Yes Objective Objective Last 24 Hour Vital Signs Date Time Temp Pulse Resp B/P (MAP) Pulse Ox O2 Delivery O2 Flow Rate FiO2 05/09/20 08:36 94 121/67 05/09/20 08:00 35 05/09/20 07:56 97.6 94 24 121/67 (85) 96 05/09/20 07:49 88 05/09/20 07:36 95 21 35 05/09/20 04:00 97.9 104 24 152/81 (104) 93 05/09/20 04:00 Mechanical Ventilator 05/09/20 04:00 35 05/09/20 04:00 98 05/09/20 03:00 96 23 35 05/09/20 00:00 Mechanical Ventilator 05/09/20 00:00 35 05/09/20 00:00 97.7 103 14 151/84 (106) 98 05/09/20 00:00 95 05/08/20 23:15 95 23 35 05/08/20 20:00 98.2 93 14 164/108 (126) 97 05/08/20 20:00 Mechanical Ventilator 05/08/20 20:00 35 05/08/20 20:00 100 05/08/20 19:20 94 25 35 05/08/20 18:12 83 126/87 05/08/20 16:00 Mechanical Ventilator 05/08/20 16:00 35 05/08/20 16:00 98.2 84 20 126/87 (100) 97 05/08/20 16:00 83 05/08/20 15:40 85 20 35 05/08/20 14:35 35 05/08/20 12:00 98.3 110 23 127/83 (98) 93 05/08/20 12:00 Mechanical Ventilator 05/08/20 12:00 99 05/08/20 12:00 45 05/08/20 11:35 86 20 45 Intake and Output 05/08/20 05/09/20 19:00 07:00 Intake Total 900 ml 850 ml Output Total 800 ml 600 ml Balance 100 ml 250 ml Free Water 300 ml 300 ml Tube Feeding 600 ml 550 ml Output Urine Total 800 ml 600 ml To remember that Current Medications Medications (Trade) Dose Ordered Sig/Dennis Route PRN Reason Start Time Stop Time Status Last Admin Dose Admin Acetaminophen (Tylenol) 650 mg Q4H PRN GT Mild Pain (Pain Scale 1-3) 05/02/20 08:45 06/01/20 08:44 05/08/20 20:28 Acetaminophen/ Hydrocodone Bitart ([place] 5/325) 1 tab Q4H GT 05/02/20 11:00 05/09/20 10:59 05/09/20 06:28 Amlodipine Besylate (Norvasc) 2.5 mg BID GT 05/02/20 18:00 06/02/20 08:59 05/09/20 08:36 Chlorhexidine Gluconate (Marlen-Hex 2%) 1 applic DAILY@1999 TOPIC 03/30/20 20:00 06/28/20 19:59 05/08/20 20:23 Dextrose (Dextrose 50%) 25 ml Q30M PRN IV Hypoglycemia 03/29/20 20:45 06/27/20 20:44 Dextrose (Dextrose 50%) 50 ml Q30M PRN IV Hypoglycemia 03/29/20 20:45 06/27/20 20:44 Enoxaparin Sodium (Lovenox) 80 mg EVERY 12 HOURS SUBQ 04/06/20 21:00 07/05/20 20:59 05/09/20 08:37 Famotidine (Pepcid) 20 mg Q12HR PRN GT HEARTBURN 05/08/20 13:15 06/01/20 15:14 Fluconazole (Diflucan) 100 mg DAILY ORAL 05/06/20 09:00 05/13/20 08:59 05/09/20 08:36 Hydralazine HCl (Apresoline) 10 mg Q4H PRN IV For High Blood Pressure 03/30/20 12:15 06/28/20 12:14 05/08/20 04:31 Insulin Aspart (NovoLOG) Q6HR SUBQ 03/30/20 00:00 06/28/20 00:00 05/01/20 18:00 Lansoprazole (Prevacid) 30 mg DAILY GT 05/02/20 09:00 06/01/20 08:59 05/09/20 08:35 Prednisone (predniSONE) 10 mg DAILY ORAL 05/06/20 09:00 06/05/20 08:59 05/09/20 08:36 Quetiapine Fumarate (SEROqueL) 50 mg EVERY 8 HOURS ORAL 04/29/20 12:00 06/11/20 11:59 05/09/20 05:15 Trimethoprim/ Sulfamethoxazole (Bactrim-DS) 1 tab DAILY ORAL 04/30/20 09:00 05/11/20 08:59 05/09/20 08:36 Laboratory Tests 05/08/20 23:00: POC Whole Blood Glucose [Pending] 05/09/20 04:00: White Blood Count 9.2, Red Blood Count 3.97L, Hemoglobin 11.4L, Hematocrit 35.6L , Mean Corpuscular Volume 90, Mean Corpuscular Hemoglobin 28.6, Mean Corpuscular Hemoglobin Concent 32.0, Red Cell Distribution Width 15.8H, Platelet Count 337, Mean Platelet Volume 6.4L, Neutrophils (%) (Auto) 73.6, Lymphocytes (%) (Auto) 19.9L, Monocytes (%) (Auto) 4.9, Eosinophils (%) (Auto) 1.0, Basophils (%) (Auto) 0.6, Sodium Level 135L, Potassium Level 3.7, Chloride Level 97L, Carbon Dioxide Level 29, Anion Gap 9, Blood Urea Nitrogen 15, Creatinine 0.5L, Estimat Glomerular Filtration Rate > 60, Glucose Level 82, Calcium Level 9.2, Total Bilirubin 0.5, Aspartate Amino Transf (AST/SGOT) 17, Alanine Aminotransferase (ALT/SGPT) 30, Alkaline Phosphatase 94, Total Protein 6.7, Albumin 3.1L, Globulin 3.6, Albumin/Globulin Ratio 0.9L 05/09/20 05:10: POC Whole Blood Glucose 107H Height (Feet): 5 Height (Inches): 10.00 Weight (Pounds): 243 General Appearance: no apparent distress EENT: other - Trach to vent Cardiovascular: tachycardia Respiratory/Chest: decreased breath sounds Abdomen: distended Rubin Cooper MD May 09, 2020 09:55
[2020-05-09] MEDS ORDERED: HYDROcodone/Acetamin 5/325 tab ORAL SCH (11:30)
--- NOTE | 2020-05-09 11:42 | NUR ---
PROCESS COACH NOTES SPOKE WITH MARCELA FROM [facility], MADE AWARE OF PT REQUIRING A SUBACUTE PLACEMENT. FAXED INQUIRY TO MARCELA. MARCELA WILL BEGIN TO LOOK FOR SUBACUTE FACILITIES. WILL FOLLOW UP. Addendum: 05/09/20 at 1431 by NATTY CLEMONS RN CM RECEIVED A CALL BACK FROM MARCELA FROM [facility], REQUESTING THAT I REACH OUT TO [employer] FOR PLACEMENT. Addendum: 05/09/20 at 1437 by NATTY CLEMONS RN CM SPOKE WITH JACQUELINE [employer] MADE AWARE OF DCP,ENCOURAGED ME TO CALL HIS NCRadha [employer]OW[employer] FOR ASSISTANCE. SPOKE WITH LION[employer], INQURY FAXED.
[2020-05-09 12:00] VITALS: BP 143/89
[2020-05-09] MEDS ORDERED: HYDROcodone/Acetamin 5/325 tab GT SCH (12:00)
--- NOTE | 2020-05-09 12:35 | NUR ---
INSURANCE CLINCALS FAXED TO [employer] T: [phone] #1 F: [phone] AND [employer]:JACQUELINE JAMES T: [phone] F: [phone]
--- NOTE | 2020-05-09 12:50 | Surgery Progress Note ---
Surgery Progress Note Subjective Procedure Performed tracheostomy Symptoms: improved, tolerating diet, passing flatus Objective Last 24 Hour Vital Signs Date Time Temp Pulse Resp B/P (MAP) Pulse Ox O2 Delivery O2 Flow Rate FiO2 05/09/20 12:24 99 05/09/20 12:00 35 05/09/20 12:00 97.7 91 25 143/89 (107) 96 05/09/20 12:00 Mechanical Ventilator 05/09/20 11:53 107 30 35 05/09/20 08:36 94 121/67 05/09/20 08:00 Mechanical Ventilator 05/09/20 08:00 35 05/09/20 07:56 97.6 94 24 121/67 (85) 96 05/09/20 07:49 88 05/09/20 07:36 95 21 35 05/09/20 04:00 97.9 104 24 152/81 (104) 93 05/09/20 04:00 Mechanical Ventilator 05/09/20 04:00 35 05/09/20 04:00 98 05/09/20 03:00 96 23 35 05/09/20 00:00 Mechanical Ventilator 05/09/20 00:00 35 05/09/20 00:00 97.7 103 14 151/84 (106) 98 05/09/20 00:00 95 05/08/20 23:15 95 23 35 05/08/20 20:00 98.2 93 14 164/108 (126) 97 05/08/20 20:00 Mechanical Ventilator 05/08/20 20:00 35 05/08/20 20:00 100 05/08/20 19:20 94 25 35 05/08/20 18:12 83 126/87 05/08/20 16:00 Mechanical Ventilator 05/08/20 16:00 35 05/08/20 16:00 98.2 84 20 126/87 (100) 97 05/08/20 16:00 83 05/08/20 15:40 85 20 35 05/08/20 14:35 35 I&O Intake and Output 05/08/20 05/09/20 19:00 07:00 Intake Total 900 ml 850 ml Output Total 800 ml 600 ml Balance 100 ml 250 ml Free Water 300 ml 300 ml Tube Feeding 600 ml 550 ml Output Urine Total 800 ml 600 ml Dressing: saturated Cardiovascular: RSR Respiratory: decreased breath sounds, other Abdomen: non-tender, present bowel sounds, non-distended, decreased bowel sounds Extremities: no edema, no tenderness, no cyanosis Laboratory Tests Test 05/08/20 23:00 05/09/20 04:00 05/09/20 05:10 POC Whole Blood Glucose Pending 107 MG/DL (74-106) H White Blood Count 9.2 K/UL (4.8-10.8) Red Blood Count 3.97 M/UL (4.70-6.10) L Hemoglobin 11.4 G/DL (14.2-18.0) L Hematocrit 35.6 % (42.0-52.0) L Mean Corpuscular Volume 90 FL (80-99) Mean Corpuscular Hemoglobin 28.6 PG (27.0-31.0) Mean Corpuscular Hemoglobin Concent 32.0 G/DL (32.0-36.0) Red Cell Distribution Width 15.8 % (11.6-14.8) H Platelet Count 337 K/UL (150-450) Mean Platelet Volume 6.4 FL (6.5-10.1) L Neutrophils (%) (Auto) 73.6 % (45.0-75.0) Lymphocytes (%) (Auto) 19.9 % (20.0-45.0) L Monocytes (%) (Auto) 4.9 % (1.0-10.0) Eosinophils (%) (Auto) 1.0 % (0.0-3.0) Basophils (%) (Auto) 0.6 % (0.0-2.0) Sodium Level 135 MMOL/L (136-145) L Potassium Level 3.7 MMOL/L (3.5-5.1) Chloride Level 97 MMOL/L (98-107) L Carbon Dioxide Level 29 MMOL/L (21-32) Anion Gap 9 mmol/L (5-15) Blood Urea Nitrogen 15 mg/dL (7-18) Creatinine 0.5 MG/DL (0.55-1.30) L Estimat Glomerular Filtration Rate > 60 mL/min (>60) Glucose Level 82 MG/DL (74-106) Calcium Level 9.2 MG/DL (8.5-10.1) Total Bilirubin 0.5 MG/DL (0.2-1.0) Aspartate Amino Transf (AST/SGOT) 17 U/L (15-37) Alanine Aminotransferase (ALT/SGPT) 30 U/L (12-78) Alkaline Phosphatase 94 U/L (46-116) Total Protein 6.7 G/DL (6.4-8.2) Albumin 3.1 G/DL (3.4-5.0) L Globulin 3.6 g/dL Albumin/Globulin Ratio 0.9 (1.0-2.7) L Plan Problems: (1) Pneumonia (2) Staphylococcus aureus bacteremia (3) COVID-19 virus infection (4) Chest pain (5) Hypertension (6) Dehydration (7) Electrolyte imbalance (8) DMII (diabetes mellitus, type 2) (9) Protein malnutrition (10) Respiratory insufficiency Assessment & Plan: 64-year-old male with respiratory insufficiency intubated in an intensive care unit. Patient has been unable to safely wean off ventilatory support. Surgery called to evaluate for tracheostomy. After careful evaluation patient is a candidate for tracheostomy. In the meantime will obtain consent. If consent obtained will proceed with scheduling. Thank you for your participation's care will follow recommendations improving trach okay agitated weaning sedation no n/v cont weaning transition to oral meds via g tube get off drips improving downgraded weaning well more alert and awake responsive will need placement trach collar consideration Booker Rausch May 09, 2020 12:50
--- NOTE | 2020-05-09 15:11 | Infectious Diseases Prog Note ---
Assessment/Plan Assessment/Plan ASSESSMENT AND PLAN: 1. hx staph aureus bacteremia/mssa - s/p tx covid-19 +, hypoxia, sob, chest x-ray worse, ? PE, ? HCAP/aspiration pna trach/vent ? fungal uti, low grade fevers diarrhea - c.diff. negative - s/p zosyn and vancomycin - diflucan x 1 day - on prednisone - picc line changed - bactrim for pneumocystis prophylaxis - finish course - s/p tx for mssa bacteremia and ? endocarditis - monitor hypoxia, labs and chest x-ray - surveillance blood cultures negative 2. covid-19 isolation removed - covid-19 recovered 3. Hypertension history. Blood pressure treatment primary care team. 4. Elevated blood sugars. Blood sugar treatment per primary care team. 5. No known drug allergies. 6. Social history is positive for smoking. 7. Family history is noncontributory. 8. MAR was noted. 9. Case was discussed with RN. 10. Continue treatment per primary consultants. Subjective Constitutional: Reports: fatigue, other - + trach and vent ; Denies: fever HEENT: Denies: congestion Respiratory: Denies: shortness of breath Cardiovascular: Denies: chest pain Gastrointestinal/Abdominal: Denies: nausea, vomiting, diarrhea Genitourinary: Reports: other - + joseph Psychiatric: Denies: depression Skin: Denies: rash Hematologic: Denies: bleeding Musculoskeletal: Denies: pain Allergies: Coded Allergies: No Known Allergies (Unverified , 02/05/20) Objective Last 24 Hour Vital Signs Date Time Temp Pulse Resp B/P (MAP) Pulse Ox O2 Delivery O2 Flow Rate FiO2 05/09/20 12:24 99 05/09/20 12:00 35 05/09/20 12:00 97.7 91 25 143/89 (107) 96 05/09/20 12:00 Mechanical Ventilator 05/09/20 11:53 107 30 35 05/09/20 08:36 94 121/67 05/09/20 08:00 Mechanical Ventilator 05/09/20 08:00 35 05/09/20 07:56 97.6 94 24 121/67 (85) 96 05/09/20 07:49 88 05/09/20 07:36 95 21 35 05/09/20 04:00 97.9 104 24 152/81 (104) 93 05/09/20 04:00 Mechanical Ventilator 05/09/20 04:00 35 05/09/20 04:00 98 05/09/20 03:00 96 23 35 05/09/20 00:00 Mechanical Ventilator 05/09/20 00:00 35 05/09/20 00:00 97.7 103 14 151/84 (106) 98 05/09/20 00:00 95 05/08/20 23:15 95 23 35 05/08/20 20:00 98.2 93 14 164/108 (126) 97 05/08/20 20:00 Mechanical Ventilator 05/08/20 20:00 35 05/08/20 20:00 100 05/08/20 19:20 94 25 35 05/08/20 18:12 83 126/87 05/08/20 16:00 Mechanical Ventilator 05/08/20 16:00 35 05/08/20 16:00 98.2 84 20 126/87 (100) 97 05/08/20 16:00 83 05/08/20 15:40 85 20 35 Height (Feet): 5 Height (Inches): 10.00 Weight (Pounds): 243 General Appearance: no acute distress HEENT: normocephalic, atraumatic, anicteric, mucous membranes moist Respiratory/Chest: crackles/rales, rhonchi - bilaterally Cardiovascular: normal rate, regular rhythm, no gallop/murmur Abdomen: normal bowel sounds, soft, non tender, no organomegaly, non distended Genitourinary: other - + joseph Extremities: no cyanosis Skin: no rash Neurologic/Psychiatric: hairspring cutter II-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 The infiltrates are typical for Covid 19. No evidence of pulmonary embolus. CT abdomen and pelvis: IMPRESSION: 1. Scattered hepatic hypodense lesions, too small to characterize on this examination without intravenous contrast. 2. Colonic diverticulosis without evidence of acute diverticulitis. 3. Scattered enlarged mesenteric lymph nodes, presumably reactive. teral pneumonia. The infiltrates are typical for Covid 19. No evidence of pulmonary embolus. Chest x-ray - 12/19/19 - Indication: Shortness of breath Technique: One view of the chest Comparison: 02/17/2020 Findings: Interim worsening of bilateral infiltrates, particularly on the right. The heart is borderline enlarged. The pleural spaces are clear. Left arm PICC is again demonstrated Impression: Worsening bilateral infiltrates over one day, likely pneumonia CT chest - 02/19/20 - IMPRESSION: Increased extensive patchy ground-glass opacities and densities throughout the lungs, suggestive of Covid 19 infection. Chest x-ray 02/23/20 - Procedure: XRAY Chest 1v As Indication: Reason For Exam: INFECT Technique: One view of the chest Comparison: 02/20/2020 Findings: Allowing for differences in exposure technique, bilateral mid and lower lung infiltrates are probably unchanged. The heart size is normal. The pleural spaces are clear. Impression: Unchanged, over 4 days, findings as above. Chest x-ray - 02/25/20 - FINDINGS: Lungs: Interval slightly worsening bilateral airspace disease. Pleural space: Unremarkable. No pneumothorax. Heart: Unremarkable. No cardiomegaly. Mediastinum: Unremarkable. Bones/joints: Unremarkable. IMPRESSION: Interval slightly worsening bilateral airspace disease. Chest x-ray - 03/02/20 - Procedure: XRAY Chest 1v Indication: Shortness of breath Technique: One view of the chest Comparison: 02/25/2020 Findings: Bilateral interstitial and airspace infiltrates are unchanged. The heart size is normal. Left arm PICC is again demonstrated Impression: Unchanged, over one day, findings as above. Chest x-ray - 03/06/20 - Procedure: XRAY Chest 1v Indication: Shortness of breath Technique: One view of the chest Comparison: 03/02/2020 Findings: Bilateral infiltrates are unchanged. Normal heart size. Pleural spaces are clear Chest x-ray - 03/12/10 - Impression: COMPARISON: Chest radiograph March 06, 2020. FINDINGS/IMPRESSION: Improving basilar infiltrates. Follow chest radiograph recommended. The upper lung finley are clear. No pneumothorax. Stable cardiomegaly. Stable left upper extremity PICC line. anged, over 4 days, findings as above. Chest x-ray - 03/17/20 - Procedure: XRAY Chest 1v Indication: Shortness of breath Technique: One view of the chest Comparison: 03/12/2020 Findings: Left arm PICC is again demonstrated. Infiltrates are unchanged. The heart size is upper limits of normal. Impression: Unchanged, over 5 days, findings as above. Abdominal US - IMPRESSION: 1. Gallbladder is normal. 2. Hepatic steatosis. 3. 1.7 cm cyst right kidney. Impression. Chest x-ray - Procedure: XRAY Chest 1v Indication: Shortness of breath Technique: One view of the chest Comparison: 03/17/2020 Findings: Bilateral right greater than left infiltrates again demonstrated. The heart size is normal. There is a left arm PICC in good position. Impression: Unchanged, over 5 days, findings as above. Chest x-ray - 03/29/20 - Procedure: XRAY Chest 1v Indication: Cough Technique: One view of the chest Comparison: 03/28/2020 Findings: Bilateral infiltrates are unchanged or slightly worse, allowing for differences in exposure technique. The pleural spaces are clear. The heart size is normal. Stable satisfactory position of endotracheal tube, left arm PICC. Orogastric tube has retracted somewhat the position remains satisfactory. Impression: Stable to slightly worse bilateral infiltrates. 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 Interim advancement of orogastric tube as well. Bilateral infiltrates are unchanged. Left arm PICC remains Impression: Improved and now satisfactory tube positions as described. ICU nurse Maeve notified at the time of interpretation Chest x-ray - 04/02/20 - COMPARISON: Chest x-rays dated 03/31/20 and 03/12/20. FINDINGS: Lungs: No significant change in bilateral prominent interstitial markings. The lungs are otherwise clear without focal consolidation. Pleural space: Unremarkable. The costophrenic angles are sharp. No visible pneumothorax. Heart: Unremarkable. No cardiomegaly. Mediastinum: Unremarkable. Bones/joints: Unremarkable. Tubes, lines and devices: Endotracheal tube tip 6.5 cm above the sunny. NG tube tip in the distal stomach. Telemetry leads overlie the thorax. IMPRESSION: No significant change in bilateral prominent interstitial markings. Procedure: XRAY Chest 1v Procedure: XRAY Chest 1v Reason for study: Shortness of breath 04/06/20 - Comparison films: 04/02/2020. FINDINGS: Endotracheal tube and NG tube remain in place. There is worsening of right basilar infiltrates. Some haziness in left lung base unchanged. Cardiac and mediastinal silhouette are within normal limits. CP angles are sharp. The bony thorax appear unremarkable. IMPRESSION: Worsening of right basilar infiltrate. Chest x-ray - 04/09/20 - Procedure: XRAY Chest 1v FILM CXR 1 VIEW INDICATION: Infection COMPARISON: April 05, 2020 FINDINGS: Single frontal view demonstrates a normal cardiomediastinal silhouette. Endotracheal tube in place with tip above the sunny. Elevation of the right hemidiaphragm. Interstitial prominence with bilateral lower lobe infiltrates. Lung bases appear worse from the prior exam. Small right effusion. Right-sided PICC line with tip in the superior vena cava. Enteric tube in place. IMPRESSION: Interstitial prominence and bilateral lower lobe pneumonia with worsening appearance from the prior study. Chest x-ray - 04/12/20 - Procedure: XRAY Chest 1v Indication: Shortness of breath Technique: One view of the chest Comparison: 04/09/2020 Findings: Stable satisfactory tube and line positions. Bilateral infiltrates have worsened slightly since prior study. The heart size is normal. Impression: Worsening bilateral infiltrates, over 3 days Chest x-ray - 04/15/20 - COMPARISON: 02/11/21. FINDINGS: Lungs: There is been no significant change in mild to moderate patchy diffuse bilateral alveolar infiltrates which are most prominent in the lung bases. Pleural space: Unremarkable. No pneumothorax. Heart: Unremarkable. No cardiomegaly. Mediastinum: Unremarkable. Bones/joints: Unremarkable. Tubes, lines and devices: There is an endotracheal tube, right-sided PICC line and NG tube in good position. IMPRESSION: There is been no significant change in mild to moderate patchy diffuse bilateral alveolar infiltrates which are most prominent in the lung bases. Chest x-ray - 04/18/20 - Procedure: XRAY Chest 1v Indication: Cough Technique: One view of the chest Comparison: 04/15/2020 Findings: Less optimal inspiration currently than previously. Stable satisfactory positions of endotracheal and orogastric tubes and right arm PICC. Bilateral infiltrates are again demonstrated, unchanged. Impression: Unchanged, over 3 days, findings as above. Chest x-ray - 04/21/20 - Procedure: XRAY Chest 1v Indication: Dyspnea Technique: One view of the chest Comparison: 04/18/2020 Findings: Stable tube and line positions. Bilateral infiltrates are unchanged Impression: Unchanged, over one day, findings as above. Procedure: XRAY Chest 1v Procedure: XRAY Chest 1v Reason for study: Reason For Exam: SOB Chest x-ray - 04/25/20 - Comparison films: 04/21/2020. FINDINGS: Endotracheal tube, NG tube and right PICC line remain in place. Vascularity is normal. Bilateral infiltrates are unchanged. Cardiac and mediastinal silhouette are within normal limits. CP angles are sharp. The bony thorax appear unremarkable. IMPRESSION: NO SIGNIFICANT CHANGE COMPARED TO PREVIOUS EXAM. Chest x-rasy - 04/30/20 - FINDINGS: Lungs: Bilateral patchy pulmonary opacities concerning for pneumonia, not significantly changed compared to the prior chest x-ray. Pleural space: Unremarkable. The costophrenic angles are sharp. No visible pneumothorax. Heart: Unremarkable. No cardiomegaly. Mediastinum: Unremarkable. Bones/joints: Unremarkable. Tubes, lines and devices: Tracheostomy tube in place, with expected positioning. Telemetry leads overlie the thorax. Right arm PICC with catheter tip in the SVC region. IMPRESSION: Bilateral patchy pulmonary opacities concerning for pneumonia, not significantly changed compared to the prior chest x-ray. Microbiology Date/Time Source Procedure Growth Status 05/02/20 15:25 Urine,Clean Catch Urine Culture - Final Kat Parapsilosis Complete 04/29/20 19:00 Blood Blood Culture - Final NO GROWTH AFTER 5 DAYS Complete 04/14/20 16:35 Stool Clostridium difficile Toxin Assay - Final Complete 04/12/20 08:40 Sputum Gram Stain - Final Complete 04/12/20 08:40 Sputum Sputum Culture - Final NORMAL UPPER RESPIRATORY WILIAM AT 48 ... Complete Laboratory Tests Test 05/08/20 23:00 05/09/20 04:00 05/09/20 05:10 POC Whole Blood Glucose Pending 107 MG/DL (74-106) H White Blood Count 9.2 K/UL (4.8-10.8) Red Blood Count 3.97 M/UL (4.70-6.10) L Hemoglobin 11.4 G/DL (14.2-18.0) L Hematocrit 35.6 % (42.0-52.0) L Mean Corpuscular Volume 90 FL (80-99) Mean Corpuscular Hemoglobin 28.6 PG (27.0-31.0) Mean Corpuscular Hemoglobin Concent 32.0 G/DL (32.0-36.0) Red Cell Distribution Width 15.8 % (11.6-14.8) H Platelet Count 337 K/UL (150-450) Mean Platelet Volume 6.4 FL (6.5-10.1) L Neutrophils (%) (Auto) 73.6 % (45.0-75.0) Lymphocytes (%) (Auto) 19.9 % (20.0-45.0) L Monocytes (%) (Auto) 4.9 % (1.0-10.0) Eosinophils (%) (Auto) 1.0 % (0.0-3.0) Basophils (%) (Auto) 0.6 % (0.0-2.0) Sodium Level 135 MMOL/L (136-145) L Potassium Level 3.7 MMOL/L (3.5-5.1) Chloride Level 97 MMOL/L (98-107) L Carbon Dioxide Level 29 MMOL/L (21-32) Anion Gap 9 mmol/L (5-15) Blood Urea Nitrogen 15 mg/dL (7-18) Creatinine 0.5 MG/DL (0.55-1.30) L Estimat Glomerular Filtration Rate > 60 mL/min (>60) Glucose Level 82 MG/DL (74-106) Calcium Level 9.2 MG/DL (8.5-10.1) Total Bilirubin 0.5 MG/DL (0.2-1.0) Aspartate Amino Transf (AST/SGOT) 17 U/L (15-37) Alanine Aminotransferase (ALT/SGPT) 30 U/L (12-78) Alkaline Phosphatase 94 U/L (46-116) Total Protein 6.7 G/DL (6.4-8.2) Albumin 3.1 G/DL (3.4-5.0) L Globulin 3.6 g/dL Albumin/Globulin Ratio 0.9 (1.0-2.7) L Current Medications Medications (Trade) Dose Ordered Sig/Dennis Route PRN Reason Start Time Stop Time Status Last Admin Dose Admin Acetaminophen (Tylenol) 650 mg Q4H PRN GT Mild Pain (Pain Scale 1-3) 05/02/20 08:45 06/01/20 08:44 05/08/20 20:28 Acetaminophen/ Hydrocodone Bitart ([place] 5/325) 1 tab Q4H PRN GT For Pain 05/09/20 16:30 05/16/20 11:59 Amlodipine Besylate (Norvasc) 2.5 mg BID GT 05/02/20 18:00 06/02/20 08:59 05/09/20 08:36 Chlorhexidine Gluconate (Marlen-Hex 2%) 1 applic DAILY@2000 TOPIC 03/30/20 20:00 06/28/20 19:59 05/08/20 20:23 Dextrose (Dextrose 50%) 25 ml Q30M PRN IV Hypoglycemia 03/29/20 20:45 06/27/20 20:44 Dextrose (Dextrose 50%) 50 ml Q30M PRN IV Hypoglycemia 03/29/20 20:45 06/27/20 20:44 Enoxaparin Sodium (Lovenox) 80 mg EVERY 12 HOURS SUBQ 04/06/20 21:00 07/05/20 20:59 05/09/20 08:37 Famotidine (Pepcid) 20 mg Q12HR PRN GT HEARTBURN 05/08/20 13:15 06/01/20 15:14 Fluconazole (Diflucan) 100 mg DAILY ORAL 05/06/20 09:00 05/13/20 08:59 05/09/20 08:36 Hydralazine HCl (Apresoline) 10 mg Q4H PRN IV For High Blood Pressure 03/30/20 12:15 06/28/20 12:14 05/08/20 04:31 Insulin Aspart (NovoLOG) Q6HR SUBQ 03/30/20 00:00 06/28/20 00:00 05/09/20 11:28 Lansoprazole (Prevacid) 30 mg DAILY GT 05/02/20 09:00 06/01/20 08:59 05/09/20 08:35 Prednisone (predniSONE) 10 mg DAILY ORAL 05/06/20 09:00 06/05/20 08:59 05/09/20 08:36 Quetiapine Fumarate (SEROqueL) 50 mg EVERY 8 HOURS ORAL 04/29/20 12:00 06/11/20 11:59 05/09/20 14:04 Trimethoprim/ Sulfamethoxazole (Bactrim-DS) 1 tab DAILY ORAL 04/30/20 09:00 05/11/20 08:59 05/09/20 08:36 Kisha Salazar MD May 09, 2020 15:11
[2020-05-09 16:00] VITALS: BP 131/69
--- NOTE | 2020-05-09 19:12 | NUR ---
NURSE HAND-OFF REPORT: Important Events on Shift:stable, awaiting bed assignment to subacute Patient Status: full code Diet: glucerna 1.5@50 Pending Orders: [] Pending Results/Labs:[] Pending MD notification:[] Latest Vital Signs: Temperature 97.7 , Pulse 91 , B/P 131 /69 , Respiratory Rate 20 , O2 SAT 95 , Mechanical Ventilator, O2 Flow Rate . Vital Sign Comment: stable EKG Rhythm: Sinus Rhythm Rhythm change?: N MD Notified?: N -Dr.Toluie INTERIANO Response: Message left await call Latest Hassan Fall Score: 35 Fall Risk: Medium Risk Safety Measures: Call light Within Reach, Bed Alarm Zone 2, Side Rails Side Rails x3, Bed position Low and Locked. Fall Precautions: Yellow Socks Yellow Gown Door Sign Patient Fall Education Report given to parker dobbins.
[2020-05-09 20:00] VITALS: BP 160/73
[2020-05-09] MEDS: Dyna-Hex 2% Top Sol 2oz TOPIC SCH (20:43)
[2020-05-09] MEDS: HYDROcodone/Acetamin 5/325 tab GT PRN (21:23)
[2020-05-09] MEDS: LORazepam 1mg tab ORAL PRN (21:23)
[2020-05-10 04:00] VITALS: BP 146/77
[2020-05-10 05:05] LABS: BASOPHILS % (AUTO) 0.6 % (0.0-2.0); EOSINOPHILS % (AUTO) 1.5 % (0.0-3.0); HEMATOCRIT 33.6 % (42.0-52.0); HEMOGLOBIN 10.7 G/DL (14.2-18.0); LYMPHOCYTES % (AUTO) 14.5 % (20.0-45.0); MEAN CORPUSCULAR VOLUME 90 FL (80-99); MONOCYTES % (AUTO) 5.8 % (1.0-10.0); NEUTROPHILS % (AUTO) 77.6 % (45.0-75.0); PLATELET COUNT 316 K/UL (150-450); RED BLOOD COUNT 3.74 M/UL (4.70-6.10); RED CELL DISTRIBUTION WIDTH 15.9 % (11.6-14.8); WHITE BLOOD COUNT 9.4 K/UL (4.8-10.8)
[2020-05-10 05:37] LABS: ALANINE AMINOTRANSFERASE 29 U/L (12-78); ALBUMIN/GLOBULIN RATIO 0.9 (1.0-2.7); ALKALINE PHOSPHATASE 97 U/L (46-116); ANION GAP 8 mmol/L (5-15); ASPARTATE AMINO TRANSFERASE 15 U/L (15-37); BILIRUBIN,TOTAL 0.4 MG/DL (0.2-1.0); BLOOD UREA NITROGEN 15 mg/dL (7-18); CALCIUM 8.8 MG/DL (8.5-10.1); CARBON DIOXIDE 30 MMOL/L (21-32); CHLORIDE 99 MMOL/L (98-107); CREATININE 0.5 MG/DL (0.55-1.30); POTASSIUM 3.7 MMOL/L (3.5-5.1); SODIUM 137 MMOL/L (136-145)
[2020-05-10] MEDS: NovoLOG Insulin Flexpen SUBQ SCH ×5 (06:00→22:59)
[2020-05-10] MEDS: HYDROcodone/Acetamin 5/325 tab GT PRN ×4 (06:05→17:46)
--- NOTE | 2020-05-10 07:06 | NUR ---
NURSE HAND-OFF REPORT: Important Events on Shift: Patient Status: Diet: Pending Orders: Pending Results/Labs: Pending MD notification: Latest Vital Signs: Temperature 97.5 , Pulse 89 , B/P 146 /77 , Respiratory Rate 22 , O2 SAT 98 , Mechanical Ventilator, O2 Flow Rate . Vital Sign Comment: EKG Rhythm: Sinus Rhythm Rhythm change?: N MD Notified?: N -Dr.Toluie INTERIANO Response: Message left await call Latest Hassan Fall Score: 35 Fall Risk: Medium Risk Safety Measures: Call light Within Reach, Bed Alarm Zone 2, Side Rails Side Rails x3, Bed position Low and Locked. Fall Precautions: Yellow Socks Yellow Gown Door Sign Patient Fall Education Report given to .
--- NOTE | 2020-05-10 07:07 | NUR ---
NURSE NOTES: received patient report from parker dobbins. patient is on bed asleep. not in acute distress.on vent at prescribed rate. afebrile. dc planning today to subacute care.will follow plan of care.
[2020-05-10 08:00] VITALS: BP 156/82
[2020-05-10] MEDS: Enoxaparin 80mg Inj SUBQ SCH ×2 (08:26→20:20)
[2020-05-10] MEDS: Bactrim-DS 1 tab ORAL SCH (08:26)
[2020-05-10] MEDS: Fluconazole 100mg tab ORAL SCH (08:27)
[2020-05-10 11:37] VITALS: BP 140/101
--- NOTE | 2020-05-10 11:38 | Pulmonology Progress Note ---
Subjective ROS Limited/Unobtainable: Yes Interval Events: S/p tracheostomy 04/25/20 Constitutional: Reports: fatigue, other - + trach and vent ; Denies: fever HEENT: Repors: no symptoms Respiratory: Reports: dry cough, shortness of breath Cardiovascular: Reports: no symptoms Gastrointestinal/Abdominal: Denies: nausea, vomiting, diarrhea Psychiatric: Denies: depression Skin: Denies: rash Musculoskeletal: Denies: pain Allergies: Coded Allergies: No Known Allergies (Unverified , 02/05/20) Objective Last 24 Hour Vital Signs Date Time Temp Pulse Resp B/P (MAP) Pulse Ox O2 Delivery O2 Flow Rate FiO2 05/10/20 11:10 97 29 35 05/10/20 08:27 94 156/82 05/10/20 08:00 97.7 94 20 156/82 (106) 99 05/10/20 08:00 Mechanical Ventilator 05/10/20 08:00 35 05/10/20 07:42 98 05/10/20 07:20 104 30 35 05/10/20 04:00 97.5 89 22 146/77 (100) 98 05/10/20 04:00 Mechanical Ventilator 05/10/20 04:00 91 05/10/20 03:55 35 05/10/20 03:13 86 24 35 05/10/20 00:00 35 05/10/20 00:00 Mechanical Ventilator 05/10/20 00:00 97.6 86 20 96 05/10/20 00:00 101 05/09/20 20:00 97.2 99 20 160/73 (102) 97 05/09/20 20:00 Mechanical Ventilator 05/09/20 20:00 98 05/09/20 20:00 35 05/09/20 19:33 94 26 35 05/09/20 17:16 91 131/69 05/09/20 16:13 91 05/09/20 16:00 35 05/09/20 16:00 Mechanical Ventilator 05/09/20 16:00 97.7 93 20 131/69 (89) 95 05/09/20 15:12 97 24 35 05/09/20 12:24 99 05/09/20 12:00 35 05/09/20 12:00 97.7 91 25 143/89 (107) 96 05/09/20 12:00 Mechanical Ventilator 05/09/20 11:53 107 30 35 Intake and Output 05/09/20 05/10/20 19:00 07:00 Intake Total 680 ml 550 ml Output Total 1100 ml Balance -420 ml 550 ml Free Water 80 ml 50 ml Tube Feeding 600 ml 500 ml Output Urine Total 1100 ml General Appearance: WD/WN, no acute distress HEENT: normocephalic, atraumatic, status post trach Respiratory: chest wall non-tender Cardiovascular: normal rate, regular rhythm Abdomen: normal bowel sounds, soft, non tender, other - obese Laboratory Tests 05/09/20 17:15: POC Whole Blood Glucose 114H 05/10/20 03:15: White Blood Count 9.4, Red Blood Count 3.74L, Hemoglobin 10.7L, Hematocrit 33.6L , Mean Corpuscular Volume 90, Mean Corpuscular Hemoglobin 28.6, Mean Corpuscular Hemoglobin Concent 31.9L, Red Cell Distribution Width 15.9H, Platelet Count 316, Mean Platelet Volume 6.2L, Neutrophils (%) (Auto) 77.6H, Lymphocytes (%) (Auto) 14.5L, Monocytes (%) (Auto) 5.8, Eosinophils (%) (Auto) 1.5, Basophils (%) (Auto) 0.6, Sodium Level 137, Potassium Level 3.7, Chloride Level 99, Carbon Dioxide Level 30, Anion Gap 8, Blood Urea Nitrogen 15, Creatinine 0.5L, Estimat Glomerular Filtration Rate > 60, Glucose Level 91, Calcium Level 8.8, Total Bilirubin 0.4, Aspartate Amino Transf (AST/SGOT) 15, Alanine Aminotransferase (ALT/SGPT) 29, Alkaline Phosphatase 97, Total Protein 6.3L, Albumin 3.0L, Globulin 3.3, Albumin/Globulin Ratio 0.9L 05/10/20 11:36: POC Whole Blood Glucose [Pending] Current Medications Medications (Trade) Dose Ordered Sig/Dennis Route PRN Reason Start Time Stop Time Status Last Admin Dose Admin Acetaminophen (Tylenol) 650 mg Q4H PRN GT Mild Pain (Pain Scale 1-3) 05/02/20 08:45 06/01/20 08:44 05/08/20 20:28 Acetaminophen/ Hydrocodone Bitart ([place] 5/325) 1 tab Q4H PRN GT For Pain 05/09/20 16:30 05/16/20 11:59 05/10/20 11:03 Amlodipine Besylate (Norvasc) 2.5 mg BID GT 05/02/20 18:00 06/02/20 08:59 05/10/20 08:27 Chlorhexidine Gluconate (Marlen-Hex 2%) 1 applic DAILY@2000 TOPIC 03/30/20 20:00 06/28/20 19:59 05/09/20 20:43 Dextrose (Dextrose 50%) 25 ml Q30M PRN IV Hypoglycemia 03/29/20 20:45 06/27/20 20:44 Dextrose (Dextrose 50%) 50 ml Q30M PRN IV Hypoglycemia 03/29/20 20:45 06/27/20 20:44 Enoxaparin Sodium (Lovenox) 80 mg EVERY 12 HOURS SUBQ 04/06/20 21:00 07/05/20 20:59 05/10/20 08:26 Famotidine (Pepcid) 20 mg Q12HR PRN GT HEARTBURN 05/08/20 13:15 06/01/20 15:14 Fluconazole (Diflucan) 100 mg DAILY ORAL 05/06/20 09:00 05/13/20 08:59 05/10/20 08:27 Hydralazine HCl (Apresoline) 10 mg Q4H PRN IV For High Blood Pressure 03/30/20 12:15 06/28/20 12:14 05/08/20 04:31 Insulin Aspart (NovoLOG) Q6HR SUBQ 03/30/20 00:00 06/28/20 00:00 05/09/20 11:28 Lansoprazole (Prevacid) 30 mg DAILY GT 05/02/20 09:00 06/01/20 08:59 05/10/20 08:27 Lorazepam (Ativan) 1 mg Q6H PRN ORAL For Anxiety 05/09/20 20:45 05/16/20 20:44 05/09/20 21:23 Prednisone (predniSONE) 10 mg DAILY ORAL 05/06/20 09:00 06/05/20 08:59 05/10/20 08:26 Quetiapine Fumarate (SEROqueL) 50 mg EVERY 8 HOURS ORAL 04/29/20 12:00 06/11/20 11:59 05/10/20 06:06 Trimethoprim/ Sulfamethoxazole (Bactrim-DS) 1 tab DAILY ORAL 04/30/20 09:00 05/11/20 08:59 05/10/20 08:26 Assessment/Plan Assessment/Plan 1.COVID-19 pneumonia. - Completed specific therapies - off solumedrol 20 Iv q 12 -> now on prednisone 10 mg PO QD - will add bactrim for PJP prophylaxis 2. DVT ppx - on lovenox 3. Hypertension - no longer on meds - Not requiring pressors 4. Leukocytosis; - ID following - Off abx - Candidemia documented 03/18/20 5. Elevated LFT - positive Hep C; treated in the past with IF 6. Respiratory failure -Intubated 03/28/20; s/p tracheostomy 04/25/20 -Gradually weaned off sedation IOV Has DVT; on full dose Lovenox Will wean down FiO2 as tolerated CXR shows bilateral interstitial changes? fibrosis? S/p PEG Off IV fluids Dc planning to subacute -> ordered clinical case manager consult for placement On seroquel 50 mg PO TID; On Ativan and [place] The care of this patient was discussed with my supervising physician Time spent for this encounter was approximately 31 minutes Edilson Marinelli May 10, 2020 11:38
--- NOTE | 2020-05-10 12:01 | NUR ---
WARD MAID NOTES SPOKE WITH LIONEL MCDONALD FROM [facility]. INQUIRY RECEIVED. PROVIDED FACILITIES WITH [facility] TO ASSIST IN PLACEMENT. LIONEL IS CURRENTL WORKING ON IT. WILL FOLLOW UP.
--- NOTE | 2020-05-10 12:14 | Nephrology Progress Note ---
Assessment/Plan Problem List: (1) Dehydration (2) Electrolyte imbalance (3) COVID-19 virus infection (4) Pneumonia (5) DMII (diabetes mellitus, type 2) (6) Protein malnutrition Assessment Azotemia, hypernatremia Hypoalbuminemia Staff Otilia bacteremia COVID-19 isolation, pneumonia, bilateral infiltrate Hypertension Diabetes mellitus History of smoking Plan May 10: Labs reviewed. Serum sodium higher. Renal parameters and electrolytes stable. Medication list reviewed. Continue per consultants. May 09: Labs reviewed. Serum sodium 135. Continue to monitor electrolytes. Medication list reviewed. Continue per current management. May 08: Labs reviewed. Renal parameters stable. Medication list reviewed. Continue per consultants. May 07: No labs drawn today reviewed. Clinically stable. Medication list re viewed. Will check lab tomorrow. Continue per consultants. May 06: Labs reviewed. Renal parameters stable. Continue per consultants. May 05: Labs reviewed. Renal parameters stable. Patient is due to be transferred to SCU. Continue per consultants. Medication list reviewed. May 04: Labs reviewed. Renal parameters stable. Overall status unchanged. Remains full code. Fed through GT tube. Trach to vent. FiO2 45%. Continue per consultants. May 03: No CHEM panel drawn today. Patient clinically stable. Has trach to vent and PEG. Will check lab tomorrow. May 02: Labs reviewed. Status quo. Patient is trached and vented. Also has PEG. Is full code. Stable from renal standpoint of view. May 01: Labs reviewed. Status quo. Patient has trach connected to vent. Has PEG. He is full code. FiO2 50%. April 30: Status quo. Labs reviewed. Renal parameters stable. Medication list reviewed. April 29: Status quo. Received PEG yesterday. Has trach connected to vent. FiO2 40%. Labs reviewed. Medication list reviewed. Continue same April 28: Status quo. Labs reviewed. Renal parameters stable. Patient n.p.o. due for PEG insertion. IV changed to D5 normal saline. Continue per consultants. April 27: Status quo. Labs reviewed. Medication list reviewed. Stable from renal standpoint of view. Abnormal electrolytes addressed. April 26: Patient is now trached and connected to vent. FiO2 70%. Labs reviewed. Renal parameters stable. Medication list reviewed. Continue per consultants. April 25: Status quo. Full code. FiO2 55%. No labs drawn today. Continue to monitor electrolytes and renal parameters. Continue per consultants. April 24: Status quo. Full code. Intubated on ventilator. FiO2 65%. Labs reviewed. Renal parameters and electrolytes stable. April 23: Status unchanged. Full code. Intubated on ventilator. FiO2 75%. Labs reviewed. Renal parameters stable. Continue per consultants. April 22: Labs reviewed. Patient remains intubated on ventilator and full code. FiO2 90%. Day 77 hospitalization. Not much to add from renal standpoint of view April 21: No CHEM panel drawn today. FiO2 60%. Patient full code. Continue per consultants. April 20: Labs reviewed. Renal parameters stable. Patient remains full code. Intubated on ventilator with FiO2 currently at 70%. Continue per consultants. April 19: No labs drawn today. Remains full code on FiO2 of 100%. Continue per consultants. April 18: Status quo. Labs reviewed. Renal parameters stable. April 17: Status quo. Intubated on ventilator. Full code. Labs reviewed. Electrolytes and renal parameters stable. Continue per consultants. April 16: Girlfriend in the room. Patient awake. Intubated. Full code. Labs reviewed. Abnormal electrolyte addressed. Continue per consultants. April 15: Labs reviewed. Electrolytes and renal parameters stable. Patient full code. Continues to be intubated on ventilator. April 14: Status quo. Labs reviewed. Remains intubated on ventilator. Full code. Continue per consultants. April 13: Status quo. Labs reviewed. Renal parameters electrolytes stable. Continue per current treatment plan. April 12: On higher FiO2. Will resume Lasix daily. Continue to monitor electrolytes and renal parameters. Per consultants. April 11: FiO2 went up to 85%. Renal parameters and electrolytes reasonably well-maintained. Will monitor serum potassium. Will give IV Lasix. April 10: Status quo. Labs reviewed. Remains intubated on ventilator with FiO2 of 65%. Remains full code. Stable from renal standpoint to view. Repeat vitamin D level on April 08 pending April 09: Status quo. Labs reviewed. Stable from renal standpoint of view. Continue per consultants. April 08: Discussed with RN. Labs reviewed. Clinically improving. Requires lower PEEP. Continue per pulmonary. Continue to monitor renal parameters. April 07: Remains full code and on ventilator. Labs reviewed. Renal parameters and electrolytes stable. Continue per consultants. Blood pressure marginally improved. April 06: Full code. On ventilator. Blood pressure 80-90 systolic. IV Lasix discontinued. Free water through tube feeding ordered. Continue to monitor electrolytes and serum sodium. Down on fentanyl as possible. Discussed with RN Kevin. Clonidine patch discontinued. April 05: Status quo. Remains full code. Remains intubated. Labs reviewed. Renal parameters stable. Serum sodium 150 unchanged. Continue per consultants. April 04: Remains intubated and on ventilator. Remains full code. Labs reviewed. Serum sodium 150 unchanged. Renal parameters stable. Continue per ID and pulmonary. April 03: Intubated. On ventilator. Full code. Labs reviewed. Serum sodium 150 unchanged. Continue to monitor renal parameters. Continue per pulmonary and ID. April 02: Full code. On ventilator. Discussed with RN. Serum sodium slightly higher. Will cut down on IV Lasix. Continue per consultants. Continue to monitor renal parameters and electrolytes. April 01: Full code. Remains on ventilator. Labs reviewed. Stable from renal standpoint of view. Continue per consultants. March 31: Full code . Remains intubated on ventilator. Labs reviewed. Patient appears toxic. Discussed with RN. Maintenance IV discontinued. Medication list reviewed. Blood pressure medication stopped due to low blood pressure. Levemir insulin stopped. Continue monitor blood sugar and sliding scale insulin. March 30: Full code. On ventilator. Labs reviewed. Clonidine patch dose increased. Lasix increased. 3% saline 1 time ordered. Continue to monitor electrolytes and renal parameters. March 29: Remains full code. On mechanical ventilation. On tube feeding. Will DC TPN. Will start on maintenance IV fluid. Continue to monitor renal parameters. March 28: On BiPAP. Full code. On TPN. Labs reviewed. Discussed with pharmacy. Continue as is. Watch serum potassium. March 27: Remains on BiPAP. No chemistry panel done today. Full code. On TPN. Will check lab tomorrow. March 26: Remains on BiPAP. Remains on TPN. Labs reviewed. Electrolytes and chemistries within normal limits. Continue as is. March 25: Remains on TPN. Labs reviewed. Discussed with pharmacy. Change IV Protonix to p.o. Continue 3% saline infusion with Lasix. Patient full code. March 24: Continue to be on TPN. Labs are reviewed. Aim to collect molina ctrolytes. Discussed with pharmacy. Continue current consultants. March 23: Continues to be on TPN. Labs reviewed. Electrolytes and chemistries all acceptable. Discussed with pharmacy. Continue current management. March 22: On TPN. Labs reviewed. Low sodium noted. 3% saline to be continued. Continue to monitor electrolytes. Discussed with pharmacy. March 21: On TPN. Labs reviewed. Continue 3% saline and Lasix for mild hyponatremia. Continue TPN as these. Discussed with pharmacy. March 20: Remains on TPN. Labs reviewed. Serum sodium higher on IV Lasix and 3% saline infusion. Continue TPN as is. Continue to monitor renal parameters and electrolytes. Discussed with Dr. Mata March 19: Remains on TPN. Labs reviewed. Serum sodium 128. Will give 3% saline with IV Lasix. Continue to monitor electrolytes. No change in TPN composition. Discussed with pharmacy. March 18: Remains on TPN. Labs reviewed. Discussed with pharmacist. Will give 3 doses of IV Lasix 20 mg every 8 hours. Continue to monitor serum sodium electrolytes uric acid. White blood cells down. Continue per consultants. March 17: On TPN. Labs reviewed. Discussed with pharmacist. Sodium content increase. Continue to monitor CMP. Patient continues to have leukocytosis. March 16: On TPN. Labs reviewed. Discussed with pharmacist. Appropriate changes made. Continue to monitor electrolytes. March 15: Remains on TPN. Labs reviewed. Discussed with pharmacist. Continue per current management. March 14: Remains on TPN. Labs reviewed, stable. Vitamin D level low, replacement ordered. Continue to monitor electrolytes and renal parameters. March 13: Patient remains on TPN. Discussed with pharmacist. TPN's sodium content adjusted. Labs reviewed. Continue to monitor electrolytes. Blood pressure remains stable. Continue per consultants. March 12: Patient on TPN. Labs reviewed. CPK remains elevated. Abnormal electrolytes and high blood sugar discussed with pharmacist and TPN adjusted. Continue to monitor labs. Oral Protonix added. Ibuprofen discontinued. Can continue to monitor electrolytes and chemistries. Levemir for high blood sugar added. March 11: Patient on TPN. Labs as of 11:15 AM is still pending. Continue per current treatment plan. Will check labs and adjust TPN as needed. Continue per consultants. March 10: Patient on TPN. Labs reviewed. Electrolytes overall stable. CPK is elevated. Will monitor electrolyte, CPK level, lipid panel. Continue per consultants. Discussed with pharmacist. Discussed with RN. Nutritional evaluation noted. Previously: D5W 100 cc an hour Monitor electrolytes renal parameters TPN and Intralipid ordered Will follow Continue per consultants Dietary consult requested Subjective ROS Limited/Unobtainable: Yes Objective Objective Last 24 Hour Vital Signs Date Time Temp Pulse Resp B/P (MAP) Pulse Ox O2 Delivery O2 Flow Rate FiO2 05/10/20 11:37 97.5 86 32 140/101 (114) 98 05/10/20 11:10 97 29 35 05/10/20 08:27 94 156/82 05/10/20 08:00 97.7 94 20 156/82 (106) 99 05/10/20 08:00 Mechanical Ventilator 05/10/20 08:00 35 05/10/20 07:42 98 05/10/20 07:20 104 30 35 05/10/20 04:00 97.5 89 22 146/77 (100) 98 05/10/20 04:00 Mechanical Ventilator 05/10/20 04:00 91 05/10/20 03:55 35 05/10/20 03:13 86 24 35 05/10/20 00:00 35 05/10/20 00:00 Mechanical Ventilator 05/10/20 00:00 97.6 86 20 96 05/10/20 00:00 101 05/09/20 20:00 97.2 99 20 160/73 (102) 97 05/09/20 20:00 Mechanical Ventilator 05/09/20 20:00 98 05/09/20 20:00 35 05/09/20 19:33 94 26 35 05/09/20 17:16 91 131/69 05/09/20 16:13 91 05/09/20 16:00 35 05/09/20 16:00 Mechanical Ventilator 05/09/20 16:00 97.7 93 20 131/69 (89) 95 05/09/20 15:12 97 24 35 05/09/20 12:24 99 Intake and Output 05/09/20 05/10/20 19:00 07:00 Intake Total 680 ml 550 ml Output Total 1100 ml Balance -420 ml 550 ml Free Water 80 ml 50 ml Tube Feeding 600 ml 500 ml Output Urine Total 1100 ml Current Medications Medications (Trade) Dose Ordered Sig/Dennis Route PRN Reason Start Time Stop Time Status Last Admin Dose Admin Acetaminophen (Tylenol) 650 mg Q4H PRN GT Mild Pain (Pain Scale 1-3) 05/02/20 08:45 06/01/20 08:44 05/08/20 20:28 Acetaminophen/ Hydrocodone Bitart (Beeson 5/325) 1 tab Q4H PRN GT For Pain 05/09/20 16:30 05/16/20 11:59 05/10/20 11:03 Amlodipine Besylate (Norvasc) 2.5 mg BID GT 05/02/20 18:00 06/02/20 08:59 05/10/20 08:27 Chlorhexidine Gluconate (Marlen-Hex 2%) 1 applic DAILY@1999 TOPIC 03/30/20 20:00 06/28/20 19:59 05/09/20 20:43 Dextrose (Dextrose 50%) 25 ml Q30M PRN IV Hypoglycemia 03/29/20 20:45 06/27/20 20:44 Dextrose (Dextrose 50%) 50 ml Q30M PRN IV Hypoglycemia 03/29/20 20:45 06/27/20 20:44 Enoxaparin Sodium (Lovenox) 80 mg EVERY 12 HOURS SUBQ 04/06/20 21:00 07/05/20 20:59 05/10/20 08:26 Famotidine (Pepcid) 20 mg Q12HR PRN GT HEARTBURN 05/08/20 13:15 06/01/20 15:14 Fluconazole (Diflucan) 100 mg DAILY ORAL 05/06/20 09:00 05/13/20 08:59 05/10/20 08:27 Hydralazine HCl (Apresoline) 10 mg Q4H PRN IV For High Blood Pressure 03/30/20 12:15 06/28/20 12:14 05/08/20 04:31 Insulin Aspart (NovoLOG) Q6HR SUBQ 03/30/20 00:00 06/28/20 00:00 05/09/20 11:28 Lansoprazole (Prevacid) 30 mg DAILY GT 05/02/20 09:00 06/01/20 08:59 05/10/20 08:27 Lorazepam (Ativan) 1 mg Q6H PRN ORAL For Anxiety 05/09/20 20:45 05/16/20 20:44 05/09/20 21:23 Prednisone (predniSONE) 10 mg DAILY ORAL 05/06/20 09:00 06/05/20 08:59 05/10/20 08:26 Quetiapine Fumarate (SEROqueL) 50 mg EVERY 8 HOURS ORAL 04/29/20 12:00 06/11/20 11:59 05/10/20 06:06 Trimethoprim/ Sulfamethoxazole (Bactrim-DS) 1 tab DAILY ORAL 04/30/20 09:00 05/11/20 08:59 05/10/20 08:26 Laboratory Tests 05/09/20 17:15: POC Whole Blood Glucose 114H 05/10/20 03:15: White Blood Count 9.4, Red Blood Count 3.74L, Hemoglobin 10.7L, Hematocrit 33.6L , Mean Corpuscular Volume 90, Mean Corpuscular Hemoglobin 28.6, Mean Corpuscular Hemoglobin Concent 31.9L, Red Cell Distribution Width 15.9H, Platelet Count 316, Mean Platelet Volume 6.2L, Neutrophils (%) (Auto) 77.6H, Lymphocytes (%) (Auto) 14.5L, Monocytes (%) (Auto) 5.8, Eosinophils (%) (Auto) 1.5, Basophils (%) (Auto) 0.6, Sodium Level 137, Potassium Level 3.7, Chloride Level 99, Carbon Dioxide Level 30, Anion Gap 8, Blood Urea Nitrogen 15, Creatinine 0.5L, Estimat Glomerular Filtration Rate > 60, Glucose Level 91, Calcium Level 8.8, Total Bilirubin 0.4, Aspartate Amino Transf (AST/SGOT) 15, Alanine Aminotransferase (ALT/SGPT) 29, Alkaline Phosphatase 97, Total Protein 6.3L, Albumin 3.0L, Globulin 3.3, Albumin/Globulin Ratio 0.9L 05/10/20 11:36: POC Whole Blood Glucose 128H Height (Feet): 5 Height (Inches): 10.00 Weight (Pounds): 243 General Appearance: no apparent distress EENT: other - Trach to vent Cardiovascular: tachycardia Respiratory/Chest: decreased breath sounds Abdomen: distended Rubin Cooper MD May 10, 2020 12:14
--- NOTE | 2020-05-10 14:07 | NUR ---
INSURANCE CLINCALS FAXED TO [employer] T: [phone] #1 F: [phone] AND ALFRED CRYPTOGRAPHER:JACQUELINE JAMES T: [phone] F: [phone]
--- NOTE | 2020-05-10 14:16 | Surgery Progress Note ---
Surgery Progress Note Subjective Procedure Performed tracheostomy Symptoms: improved, tolerating diet, passing flatus Objective Last 24 Hour Vital Signs Date Time Temp Pulse Resp B/P (MAP) Pulse Ox O2 Delivery O2 Flow Rate FiO2 05/10/20 12:00 35 05/10/20 12:00 Mechanical Ventilator 05/10/20 11:48 96 05/10/20 11:37 97.5 86 32 140/101 (114) 98 05/10/20 11:10 97 29 35 05/10/20 08:27 94 156/82 05/10/20 08:00 97.7 94 20 156/82 (106) 99 05/10/20 08:00 Mechanical Ventilator 05/10/20 08:00 35 05/10/20 07:42 98 05/10/20 07:20 104 30 35 05/10/20 04:00 97.5 89 22 146/77 (100) 98 05/10/20 04:00 Mechanical Ventilator 05/10/20 04:00 91 05/10/20 03:55 35 05/10/20 03:13 86 24 35 05/10/20 00:00 35 05/10/20 00:00 Mechanical Ventilator 05/10/20 00:00 97.6 86 20 96 05/10/20 00:00 101 05/09/20 20:00 97.2 99 20 160/73 (102) 97 05/09/20 20:00 Mechanical Ventilator 05/09/20 20:00 98 05/09/20 20:00 35 05/09/20 19:33 94 26 35 05/09/20 17:16 91 131/69 05/09/20 16:13 91 05/09/20 16:00 35 05/09/20 16:00 Mechanical Ventilator 05/09/20 16:00 97.7 93 20 131/69 (89) 95 05/09/20 15:12 97 24 35 I&O Intake and Output 05/09/20 05/10/20 19:00 07:00 Intake Total 680 ml 550 ml Output Total 1100 ml Balance -420 ml 550 ml Free Water 80 ml 50 ml Tube Feeding 600 ml 500 ml Output Urine Total 1100 ml Dressing: saturated Drains: other Cardiovascular: RSR Respiratory: decreased breath sounds Abdomen: soft, flat, non-tender, present bowel sounds Extremities: no tenderness, no cyanosis Laboratory Tests Test 05/09/20 17:15 3/10/21 03:15 05/10/20 11:36 POC Whole Blood Glucose 114 MG/DL (74-106) H 128 MG/DL (74-106) H White Blood Count 9.4 K/UL (4.8-10.8) Red Blood Count 3.74 M/UL (4.70-6.10) L Hemoglobin 10.7 G/DL (14.2-18.0) L Hematocrit 33.6 % (42.0-52.0) L Mean Corpuscular Volume 90 FL (80-99) Mean Corpuscular Hemoglobin 28.6 PG (27.0-31.0) Mean Corpuscular Hemoglobin Concent 31.9 G/DL (32.0-36.0) L Red Cell Distribution Width 15.9 % (11.6-14.8) H Platelet Count 316 K/UL (150-450) Mean Platelet Volume 6.2 FL (6.5-10.1) L Neutrophils (%) (Auto) 77.6 % (45.0-75.0) H Lymphocytes (%) (Auto) 14.5 % (20.0-45.0) L Monocytes (%) (Auto) 5.8 % (1.0-10.0) Eosinophils (%) (Auto) 1.5 % (0.0-3.0) Basophils (%) (Auto) 0.6 % (0.0-2.0) Sodium Level 137 MMOL/L (136-145) Potassium Level 3.7 MMOL/L (3.5-5.1) Chloride Level 99 MMOL/L (98-107) Carbon Dioxide Level 30 MMOL/L (21-32) Anion Gap 8 mmol/L (5-15) Blood Urea Nitrogen 15 mg/dL (7-18) Creatinine 0.5 MG/DL (0.55-1.30) L Estimat Glomerular Filtration Rate > 60 mL/min (>60) Glucose Level 91 MG/DL (74-106) Calcium Level 8.8 MG/DL (8.5-10.1) Total Bilirubin 0.4 MG/DL (0.2-1.0) Aspartate Amino Transf (AST/SGOT) 15 U/L (15-37) Alanine Aminotransferase (ALT/SGPT) 29 U/L (12-78) Alkaline Phosphatase 97 U/L (46-116) Total Protein 6.3 G/DL (6.4-8.2) L Albumin 3.0 G/DL (3.4-5.0) L Globulin 3.3 g/dL Albumin/Globulin Ratio 0.9 (1.0-2.7) L Plan Problems: (1) Pneumonia (2) Staphylococcus aureus bacteremia (3) COVID-19 virus infection (4) Chest pain (5) Hypertension (6) Dehydration (7) Electrolyte imbalance (8) DMII (diabetes mellitus, type 2) (9) Protein malnutrition (10) Respiratory insufficiency Assessment & Plan: 64-year-old male with respiratory insufficiency intubated in an intensive care unit. Patient has been unable to safely wean off ventilatory support. Surgery called to evaluate for tracheostomy. After careful evaluation patient is a candidate for tracheostomy. In the meantime will obtain consent. If consent obtained will proceed with scheduling. Thank you for your participation's care will follow recommendations improving trach okay agitated weaning sedation no n/v cont weaning transition to oral meds via g tube get off drips improving downgraded weaning well more alert and awake responsive will need placement trach collar consideration Booker Rausch May 10, 2020 14:16
--- NOTE | 2020-05-10 15:53 | General Progress Note ---
Subjective ROS Limited/Unobtainable: No Allergies: Coded Allergies: No Known Allergies (Unverified , 02/05/20) Objective Last 24 Hour Vital Signs Date Time Temp Pulse Resp B/P (MAP) Pulse Ox O2 Delivery O2 Flow Rate FiO2 05/10/20 12:00 35 05/10/20 12:00 Mechanical Ventilator 05/10/20 11:48 96 05/10/20 11:37 97.5 86 32 140/101 (114) 98 05/10/20 11:10 97 29 35 05/10/20 08:27 94 156/82 05/10/20 08:00 97.7 94 20 156/82 (106) 99 05/10/20 08:00 Mechanical Ventilator 05/10/20 08:00 35 05/10/20 07:42 98 05/10/20 07:20 104 30 35 05/10/20 04:00 97.5 89 22 146/77 (100) 98 05/10/20 04:00 Mechanical Ventilator 05/10/20 04:00 91 05/10/20 03:55 35 05/10/20 03:13 86 24 35 05/10/20 00:00 35 05/10/20 00:00 Mechanical Ventilator 05/10/20 00:00 97.6 86 20 96 05/10/20 00:00 101 05/09/20 20:00 97.2 99 20 160/73 (102) 97 05/09/20 20:00 Mechanical Ventilator 05/09/20 20:00 98 05/09/20 20:00 35 05/09/20 19:33 94 26 35 05/09/20 17:16 91 131/69 05/09/20 16:13 91 05/09/20 16:00 35 05/09/20 16:00 Mechanical Ventilator 05/09/20 16:00 97.7 93 20 131/69 (89) 95 Intake and Output 05/09/20 05/10/20 19:00 07:00 Intake Total 680 ml 550 ml Output Total 1100 ml Balance -420 ml 550 ml Free Water 80 ml 50 ml Tube Feeding 600 ml 500 ml Output Urine Total 1100 ml Laboratory Tests 05/09/20 17:15: POC Whole Blood Glucose 114H 05/10/20 03:15: White Blood Count 9.4, Red Blood Count 3.74L, Hemoglobin 10.7L, Hematocrit 33.6L , Mean Corpuscular Volume 90, Mean Corpuscular Hemoglobin 28.6, Mean Corpuscular Hemoglobin Concent 31.9L, Red Cell Distribution Width 15.9H, Platelet Count 316, Mean Platelet Volume 6.2L, Neutrophils (%) (Auto) 77.6H, Lymphocytes (%) (Auto) 14.5L, Monocytes (%) (Auto) 5.8, Eosinophils (%) (Auto) 1.5, Basophils (%) (Auto) 0.6, Sodium Level 137, Potassium Level 3.7, Chloride Level 99, Carbon Dioxide Level 30, Anion Gap 8, Blood Urea Nitrogen 15, Creatinine 0.5L, Estimat Glomerular Filtration Rate > 60, Glucose Level 91, Calcium Level 8.8, Total Bilirubin 0.4, Aspartate Amino Transf (AST/SGOT) 15, Alanine Aminotransferase (ALT/SGPT) 29, Alkaline Phosphatase 97, Total Protein 6.3L, Albumin 3.0L, Globulin 3.3, Albumin/Globulin Ratio 0.9L 05/10/20 11:36: POC Whole Blood Glucose 128H Height (Feet): 5 Height (Inches): 10.00 Weight (Pounds): 243 General Appearance: no apparent distress EENT: normal ENT inspection Neck: supple Cardiovascular: normal rate Respiratory/Chest: decreased breath sounds Abdomen: normal bowel sounds, non tender, soft Extremities: non-tender Assessment/Plan Status: stable, unchanged Assessment/Plan: hep c + but neg RNA GTF reglan 10 mg tolerating TF repeat labs fu LFTS>>>improving pepcid iv will Da Wilson MD May 10, 2020 15:53
[2020-05-10 16:00] VITALS: BP 143/83
--- NOTE | 2020-05-10 19:06 | NUR ---
NURSE HAND-OFF REPORT: Important Events on Shift:stable, awaiting discahrge to subacute facility Patient Status: full code Diet: gt Pending Orders: [] Pending Results/Labs:[] Pending MD notification:[] Latest Vital Signs: Temperature 97.4 , Pulse 84 , B/P 143 /83 , Respiratory Rate 20 , O2 SAT 98 , Mechanical Ventilator, O2 Flow Rate . Vital Sign Comment: stable EKG Rhythm: Sinus Rhythm Rhythm change?: N MD Notified?: N -Dr.Toluie INTERIANO Response: Message left await call Latest Hassan Fall Score: 35 Fall Risk: Medium Risk Safety Measures: Call light Within Reach, Bed Alarm Zone 2, Side Rails Side Rails x3, Bed position Low and Locked. Fall Precautions: Yellow Socks Yellow Gown Door Sign Patient Fall Education Report given to corrine dobbins.
--- NOTE | 2020-05-10 19:07 | NUR ---
NURSE NOTES: Report received from PRIYANKA Thomas. Upon assessment pt is awake, A/Ox4. C/o abdominal discomfort 11/10. PERRLA. Observed bleeding of Left eye; no pain or irritation - per pt on site. Encouraged to write and use message boards to communicate with staff vs becoming frustrated of lack of communication. NSR on monitor. Saturating 95% on prescribed vent settings of AC 18 / 750 vt / 35% fiO2 Left arm weakness and edema observed. G-tube running glucerna 1.5 with 10mL residual. ALBERT PICC patent and intact; next dressing change 05/18 Brownlee draining well to gravity. Bed kept in lowest and locked position. Side rails up x3. Call light within reach. Will monitor.
[2020-05-10 20:00] VITALS: BP 124/83
[2020-05-10] MEDS: Dyna-Hex 2% Top Sol 2oz TOPIC SCH (20:19)
--- NOTE | 2020-05-10 22:02 | NUR ---
NURSE NOTES: Pt calling multiple times during shift despite all accommodations and needs met. Observed pt becoming anxious despite encouragement to use communication board / write on paper/pen his needs.
[2020-05-11] VITALS: BP 129/84
[2020-05-11] MEDS: LORazepam 1mg tab ORAL PRN ×4 (01:55→21:27)
[2020-05-11 04:00] VITALS: BP 169/107
[2020-05-11] MEDS: NovoLOG Insulin Flexpen SUBQ SCH (05:23)
[2020-05-11] MEDS: HYDROcodone/Acetamin 5/325 tab GT PRN ×4 (05:23→23:10)
--- NOTE | 2020-05-11 06:00 | NUR ---
NURSE NOTES: BP elevated 169/107. PRN hydralazine given as ordered. BP now stable 120/72. Will monitor.
[2020-05-11 06:21] VITALS: BP 128/72
--- NOTE | 2020-05-11 06:35 | NUR ---
NURSE HAND-OFF REPORT: Important Events on Shift: Elevated BP/HR Patient Status: Stable Diet: Gluc 1.5 Pending Orders: Pending Results/Labs: Pending MD notification: Latest Vital Signs: Temperature 98.1 , Pulse 104 , B/P 128 /72 , Respiratory Rate 20 , O2 SAT 94 , Mechanical Ventilator, O2 Flow Rate . Vital Sign Comment: HTN EKG Rhythm: Sinus Rhythm Rhythm change?: N MD Notified?: N -Dr.Toluie INTERIANO Response: Message left await call Latest Hassan Fall Score: 35 Fall Risk: Medium Risk Safety Measures: Call light Within Reach, Bed Alarm Zone 2, Side Rails Side Rails x3, Bed position Low and Locked. Fall Precautions: Yellow Socks Yellow Gown Door Sign Patient Fall Education Report given to PRIYANKA Estevez.
--- NOTE | 2020-05-11 07:30 | NUR ---
NURSE NOTES: Received pt from PRIYANKA Shafer, pt is sleeping, pt has trach to clotilde AC 18 TV 750 FIO2 35% PEEP 5, Pt has g tube in place is working well, pt has Brownlee cath in place is working well. pt has PICC ALBERT SL. All needs attended, bed is locked and is i the lowest position, call light within easy reach. will continue to monitor.
[2020-05-11 08:00] VITALS: BP 139/78
[2020-05-11] MEDS: Fluconazole 100mg tab ORAL SCH (08:31)
[2020-05-11] MEDS: Enoxaparin 80mg Inj SUBQ SCH ×2 (08:32→21:30)
--- NOTE | 2020-05-11 08:37 | Pulmonology Progress Note ---
Subjective ROS Limited/Unobtainable: No Interval Events: S/p tracheostomy 04/25/20 Constitutional: Reports: fatigue, other - + trach and vent ; Denies: fever HEENT: Repors: no symptoms Respiratory: Reports: dry cough, shortness of breath Cardiovascular: Reports: no symptoms Gastrointestinal/Abdominal: Denies: nausea, vomiting, diarrhea Psychiatric: Denies: depression Skin: Denies: rash Musculoskeletal: Denies: pain Allergies: Coded Allergies: No Known Allergies (Unverified , 02/05/20) Objective Last 24 Hour Vital Signs Date Time Temp Pulse Resp B/P (MAP) Pulse Ox O2 Delivery O2 Flow Rate FiO2 05/11/20 08:00 98.2 103 20 139/78 (98) 99 05/11/20 08:00 Mechanical Ventilator 05/11/20 08:00 35 05/11/20 07:32 106 05/11/20 07:16 107 28 35 05/11/20 06:21 104 128/72 (90) 05/11/20 06:03 98.1 05/11/20 05:22 169/107 05/11/20 04:00 100 05/11/20 04:00 35 05/11/20 04:00 Mechanical Ventilator 05/11/20 04:00 98.0 105 20 169/107 (127) 94 05/11/20 03:00 109 30 35 05/11/20 02:28 100 21 130/84 98 05/11/20 01:55 94 21 130/84 96 05/11/20 00:00 Mechanical Ventilator 05/11/20 00:00 35 05/11/20 00:00 94 05/11/20 00:00 98.0 92 19 129/84 (99) 95 05/10/20 23:24 93 22 35 05/10/20 20:00 97.9 90 27 124/83 (97) 95 05/10/20 20:00 35 05/10/20 20:00 88 05/10/20 20:00 Mechanical Ventilator 05/10/20 19:21 88 25 35 05/10/20 17:42 84 143/83 05/10/20 16:00 97.4 84 20 143/83 (103) 98 05/10/20 16:00 Mechanical Ventilator 05/10/20 16:00 35 05/10/20 15:18 88 05/10/20 15:00 84 18 35 05/10/20 12:00 35 05/10/20 12:00 Mechanical Ventilator 05/10/20 11:48 96 05/10/20 11:37 97.5 86 32 140/101 (114) 98 05/10/20 11:10 97 29 35 Intake and Output 05/10/20 05/11/20 19:00 07:00 Intake Total 790 ml 800 ml Output Total 1300 ml 700 ml Balance -510 ml 100 ml Free Water 140 ml 300 ml Tube Feeding 650 ml 500 ml Output Urine Total 1300 ml 700 ml # Bowel Movements 2 General Appearance: WD/WN, no acute distress HEENT: normocephalic, atraumatic, status post trach Respiratory: chest wall non-tender Cardiovascular: normal rate, regular rhythm Abdomen: normal bowel sounds, soft, non tender, other - obese Laboratory Tests 05/10/20 11:36: POC Whole Blood Glucose 128H Current Medications Medications (Trade) Dose Ordered Sig/Dennis Route PRN Reason Start Time Stop Time Status Last Admin Dose Admin Acetaminophen (Tylenol) 650 mg Q4H PRN GT Mild Pain (Pain Scale 1-3) 05/02/20 08:45 06/01/20 08:44 05/08/20 20:28 Acetaminophen/ Hydrocodone Bitart ([place] 5/325) 1 tab Q4H PRN GT For Pain 05/09/20 16:30 05/16/20 11:59 05/11/20 05:23 Amlodipine Besylate (Norvasc) 2.5 mg BID GT 05/02/20 18:00 06/02/20 08:59 05/10/20 17:42 Chlorhexidine Gluconate (Marlen-Hex 2%) 1 applic DAILY@2000 TOPIC 03/30/20 20:00 06/28/20 19:59 05/10/20 20:19 Dextrose (Dextrose 50%) 25 ml Q30M PRN IV Hypoglycemia 03/29/20 20:45 06/27/20 20:44 Dextrose (Dextrose 50%) 50 ml Q30M PRN IV Hypoglycemia 03/29/20 20:45 06/27/20 20:44 Enoxaparin Sodium (Lovenox) 80 mg EVERY 12 HOURS SUBQ 04/06/20 21:00 07/05/20 20:59 05/10/20 20:20 Famotidine (Pepcid) 20 mg Q12HR PRN GT HEARTBURN 05/08/20 13:15 06/01/20 15:14 Fluconazole (Diflucan) 100 mg DAILY ORAL 05/06/20 09:00 05/13/20 08:59 05/10/20 08:27 Hydralazine HCl (Apresoline) 10 mg Q4H PRN IV For High Blood Pressure 03/30/20 12:15 06/28/20 12:14 05/11/20 05:22 Insulin Aspart (NovoLOG) Q6HR SUBQ 03/30/20 00:00 06/28/20 00:00 05/09/20 11:28 Lansoprazole (Prevacid) 30 mg DAILY GT 05/02/20 09:00 06/01/20 08:59 05/10/20 08:27 Lorazepam (Ativan) 1 mg Q6H PRN ORAL For Anxiety 05/09/20 20:45 05/16/20 20:44 05/11/20 01:55 Prednisone (predniSONE) 10 mg DAILY ORAL 05/06/20 09:00 06/05/20 08:59 05/10/20 08:26 Quetiapine Fumarate (SEROqueL) 50 mg EVERY 8 HOURS ORAL 04/29/20 12:00 06/11/20 11:59 05/11/20 05:22 Trimethoprim/ Sulfamethoxazole (Bactrim-DS) 1 tab DAILY ORAL 04/30/20 09:00 05/11/20 08:59 05/10/20 08:26 Assessment/Plan Assessment/Plan 1.COVID-19 pneumonia. - Completed specific therapies - off solumedrol 20 Iv q 12 -> now on prednisone 10 mg PO QD - will add bactrim for PJP prophylaxis 2. DVT ppx - on lovenox 3. Hypertension - no longer on meds - Not requiring pressors 4. Leukocytosis; - ID following - Off abx - Candidemia documented 03/18/20 5. Elevated LFT - positive Hep C; treated in the past with IF 6. Respiratory failure -Intubated 03/28/20; s/p tracheostomy 04/25/20 -Gradually weaned off sedation IOV Has DVT; on full dose Lovenox Will wean down FiO2 as tolerated CXR shows bilateral interstitial changes? fibrosis? S/p PEG Off IV fluids Dc planning to subacute -> ordered vocational case manager consult for placement On seroquel 50 mg PO TID; On Ativan and [place] The care of this patient was discussed with my supervising physician Time spent for this encounter was approximately 31 minutes Edilson Marinelli May 11, 2020 08:37
[2020-05-11] MEDS: Albuterol/Ipratropium 3ml neb HHN PRN ×2 (09:20→15:28)
--- NOTE | 2020-05-11 10:50 | Nephrology Progress Note ---
Assessment/Plan Problem List: (1) Dehydration (2) Electrolyte imbalance (3) COVID-19 virus infection (4) Pneumonia (5) DMII (diabetes mellitus, type 2) (6) Protein malnutrition Assessment Azotemia, hypernatremia Hypoalbuminemia Staff Otilia bacteremia COVID-19 isolation, pneumonia, bilateral infiltrate Hypertension Diabetes mellitus History of smoking Plan May 11: No labs drawn today. Will check can panel tomorrow. Medication list reviewed. Patient remains full code. Continue per consultants. May 10: Labs reviewed. Serum sodium higher. Renal parameters and electrolytes stable. Medication list reviewed. Continue per consultants. May 09: Labs reviewed. Serum sodium 135. Continue to monitor electrolytes. Medication list reviewed. Continue per current management. May 08: Labs reviewed. Renal parameters stable. Medication list reviewed. Continue per consultants. May 07: No labs drawn today reviewed. Clinically stable. Medication list reviewed. Will check lab tomorrow. Continue per consultants. May 06: Labs reviewed. Renal parameters stable. Continue per consultants. May 05: Labs reviewed. Renal parameters stable. Patient is due to be transferred to SCU. Continue per consultants. Medication list reviewed. May 04: Labs reviewed. Renal parameters stable. Overall status unchanged. Remains full code. Fed through GT tube. Trach to vent. FiO2 45%. Continue per consultants. May 03: No CHEM panel drawn today. Patient clinically stable. Has trach to vent and PEG. Will check lab tomorrow. May 02: Labs reviewed. Status quo. Patient is trached and vented. Also has PEG. Is full code. Stable from renal standpoint of view. May 01: Labs reviewed. Status quo. Patient has trach connected to vent. Has PEG. He is full code. FiO2 50%. April 30: Status quo. Labs reviewed. Renal parameters stable. Medication list reviewed. April 29: Status quo. Received PEG yesterday. Has trach connected to vent. FiO2 40%. Labs reviewed. Medication list reviewed. Continue same April 28: Status quo. Labs reviewed. Renal parameters stable. Patient n.p.o. due for PEG insertion. IV changed to D5 normal saline. Continue per consultants. April 27: Status quo. Labs reviewed. Medication list reviewed. Stable from renal standpoint of view. Abnormal electrolytes addressed. April 26: Patient is now trached and connected to vent. FiO2 70%. Labs reviewed. Renal parameters stable. Medication list reviewed. Continue per consultants. April 25: Status quo. Full code. FiO2 55%. No labs drawn today. Continue to monitor electrolytes and renal parameters. Continue per consultants. April 24: Status quo. Full code. Intubated on ventilator. FiO2 65%. Labs reviewed. Renal parameters and electrolytes stable. April 23: Status unchanged. Full code. Intubated on ventilator. FiO2 75%. Labs reviewed. Renal parameters stable. Continue per consultants. April 22: Labs reviewed. Patient remains intubated on ventilator and full code. FiO2 90%. Day 77 hospitalization. Not much to add from renal standpoint of view April 21: No CHEM panel drawn today. FiO2 60%. Patient full code. Continue per consultants. April 20: Labs reviewed. Renal parameters stable. Patient remains full code. Intubated on ventilator with FiO2 currently at 70%. Continue per consultants. April 19: No labs drawn today. Remains full code on FiO2 of 100%. Continue per consultants. April 18: Status quo. Labs reviewed. Renal parameters stable. April 17: Status quo. Intubated on ventilator. Full code. Labs reviewed. Electrolytes and renal parameters stable. Continue per consultants. April 16: Girlfriend in the room. Patient awake. Intubated. Full code. Saba bs reviewed. Abnormal electrolyte addressed. Continue per consultants. April 15: Labs reviewed. Electrolytes and renal parameters stable. Patient full code. Continues to be intubated on ventilator. April 14: Status quo. Labs reviewed. Remains intubated on ventilator. Full code. Continue per consultants. April 13: Status quo. Labs reviewed. Renal parameters electrolytes stable. Continue per current treatment plan. April 12: On higher FiO2. Will resume Lasix daily. Continue to monitor electrolytes and renal parameters. Per consultants. April 11: FiO2 went up to 85%. Renal parameters and electrolytes reasonably well-maintained. Will monitor serum potassium. Will give IV Lasix. April 10: Status quo. Labs reviewed. Remains intubated on ventilator with FiO2 of 65%. Remains full code. Stable from renal standpoint to view. Repeat vitamin D level on April 08 pending April 09: Status quo. Labs reviewed. Stable from renal standpoint of view. Continue per consultants. April 08: Discussed with RN. Labs reviewed. Clinically improving. Requires lower PEEP. Continue per pulmonary. Continue to monitor renal parameters. April 07: Remains full code and on ventilator. Labs reviewed. Renal parameters and electrolytes stable. Continue per consultants. Blood pressure marginally improved. April 06: Full code. On ventilator. Blood pressure 80-90 systolic. IV Lasix discontinued. Free water through tube feeding ordered. Continue to monitor electrolytes and serum sodium. Down on fentanyl as possible. Discussed with RN Kevin. Clonidine patch discontinued. April 05: Status quo. Remains full code. Remains intubated. Labs reviewed. Renal parameters stable. Serum sodium 150 unchanged. Continue per consultants. April 04: Remains intubated and on ventilator. Remains full code. Labs reviewed. Serum sodium 150 unchanged. Renal parameters stable. Continue per ID and pulmonary. April 03: Intubated. On ventilator. Full code. Labs reviewed. Serum sodium 150 unchanged. Continue to monitor renal parameters. Continue per pulmonary and ID. April 02: Full code. On ventilator. Discussed with RN. Serum sodium slightly higher. Will cut down on IV Lasix. Continue per consultants. Continue to monitor renal parameters and electrolytes. April 01: Full code. Remains on ventilator. Labs reviewed. Stable from renal standpoint of view. Continue per consultants. March 31: Full code . Remains intubated on ventilator. Labs reviewed. Patient appears toxic. Discussed with RN. Maintenance IV discontinued. Medication list reviewed. Blood pressure medication stopped due to low blood pressure. Levemir insulin stopped. Continue monitor blood sugar and sliding scale insulin. March 30: Full code. On ventilator. Labs reviewed. Clonidine patch dose increased. Lasix increased. 3% saline 1 time ordered. Continue to monitor electrolytes and renal parameters. March 29: Remains full code. On mechanical ventilation. On tube feeding. Will DC TPN. Will start on maintenance IV fluid. Continue to monitor renal parameters. March 28: On BiPAP. Full code. On TPN. Labs reviewed. Discussed with pharmacy. Continue as is. Watch serum potassium. March 27: Remains on BiPAP. No chemistry panel done today. Full code. On TPN. Will check lab tomorrow. March 26: Remains on BiPAP. Remains on TPN. Labs reviewed. Electrolytes and chemistries within normal limits. Continue as is. March 25: Remains on TPN. Labs reviewed. Discussed with pharmacy. Change IV Protonix to p.o. Continue 3% saline infusion with Lasix. Patient full code. March 24: Continue to be on TPN. Labs are reviewed. Aim to collect electrolytes. Discussed with pharmacy. Continue current consultants. March 23: Continues to be on TPN. Labs reviewed. Electrolytes and chemistries all acceptable. Discussed with pharmacy. Continue current management. March 22: On TPN. Labs reviewed. Low sodium noted. 3% saline to be continued. Continue to monitor electrolytes. Discussed with pharmacy. March 21: On TPN. Labs reviewed. Continue 3% saline and Lasix for mild hyponatremia. Continue TPN as these. Discussed with pharmacy. March 20: Remains on TPN. Labs reviewed. Serum sodium higher on IV Lasix and 3% saline infusion. Continue TPN as is. Continue to monitor renal parameters and electrolytes. Discussed with Dr. Mata March 19: Remains on TPN. Labs reviewed. Serum sodium 128. Will give 3% saline with IV Lasix. Continue to monitor electrolytes. No change in TPN composition. Discussed with pharmacy. March 18: Remains on TPN. Labs reviewed. Discussed with pharmacist. Will give 3 doses of IV Lasix 20 mg every 8 hours. Continue to monitor serum sodium electrolytes uric acid. White blood cells down. Continue per consultants. March 17: On TPN. Labs reviewed. Discussed with pharmacist. Sodium content increase. Continue to monitor CMP. Patient continues to have leukocytosis. March 16: On TPN. Labs reviewed. Discussed with pharmacist. Appropriate changes made. Continue to monitor electrolytes. March 15: Remains on TPN. Labs reviewed. Discussed with pharmacist. Continue per current management. March 14: Remains on TPN. Labs reviewed, stable. Vitamin D level low, replacement ordered. Continue to monitor electrolytes and renal parameters. March 13: Patient remains on TPN. Discussed with pharmacist. TPN's sodium content adjusted. Labs reviewed. Continue to monitor electrolytes. Blood pressure remains stable. Continue per consultants. March 12: Patient on TPN. Labs reviewed. CPK remains elevated. Abnormal electrolytes and high blood sugar discussed with pharmacist and TPN adjusted. Continue to monitor labs. Oral Protonix added. Ibuprofen discontinued. Can continue to monitor electrolytes and chemistries. Levemir for high blood sugar added. March 11: Patient on TPN. Labs as of 11:15 AM is still pending. Continue per current treatment plan. Will check labs and adjust TPN as needed. Continue per consultants. March 10: Patient on TPN. Labs reviewed. Electrolytes overall stable. CPK is elevated. Will monitor electrolyte, CPK level, lipid panel. Continue per consultants. Discussed with pharmacist. Discussed with RN. Nutritional evaluation noted. Previously: D5W 100 cc an hour Monitor electrolytes renal parameters TPN and Intralipid ordered Will follow Continue per consultants Dietary consult requested Subjective ROS Limited/Unobtainable: Yes Objective Objective Last 24 Hour Vital Signs Date Time Temp Pulse Resp B/P (MAP) Pulse Ox O2 Delivery O2 Flow Rate FiO2 05/11/20 09:20 118 21 99 Mechanical Ventilator 45 45 05/11/20 09:01 116 20 136/93 98 05/11/20 08:31 103 20 139/78 99 05/11/20 08:31 103 139/78 05/11/20 08:00 98.2 103 20 139/78 (98) 99 05/11/20 08:00 Mechanical Ventilator 05/11/20 08:00 35 05/11/20 07:32 106 05/11/20 07:16 107 28 35 05/11/20 06:21 104 128/72 (90) 05/11/20 06:03 98.1 05/11/20 05:22 169/107 05/11/20 04:00 100 05/11/20 04:00 35 05/11/20 04:00 Mechanical Ventilator 05/11/20 04:00 98.0 105 20 169/107 (127) 94 05/11/20 03:00 109 30 35 05/11/20 02:28 100 21 130/84 98 05/11/20 01:55 94 21 130/84 96 05/11/20 00:00 Mechanical Ventilator 05/11/20 00:00 35 05/11/20 00:00 94 05/11/20 00:00 98.0 92 19 129/84 (99) 95 05/10/20 23:24 93 22 35 05/10/20 20:00 97.9 90 27 124/83 (97) 95 05/10/20 20:00 35 05/10/20 20:00 88 05/10/20 20:00 Mechanical Ventilator 05/10/20 19:21 88 25 35 05/10/20 17:42 84 143/83 05/10/20 16:00 97.4 84 20 143/83 (103) 98 05/10/20 16:00 Mechanical Ventilator 05/10/20 16:00 35 05/10/20 15:18 88 05/10/20 15:00 84 18 35 05/10/20 12:00 35 05/10/20 12:00 Mechanical Ventilator 05/10/20 11:48 96 05/10/20 11:37 97.5 86 32 140/101 (114) 98 05/10/20 11:10 97 29 35 Intake and Output 05/10/20 05/11/20 18:59 06:59 Intake Total 680 ml 910 ml Output Total 1300 ml 700 ml Balance -620 ml 210 ml Free Water 80 ml 360 ml Tube Feeding 600 ml 550 ml Output Urine Total 1300 ml 700 ml # Bowel Movements 2 Current Medications Medications (Trade) Dose Ordered Sig/Dennis Route PRN Reason Start Time Stop Time Status Last Admin Dose Admin Acetaminophen (Tylenol) 650 mg Q4H PRN GT Mild Pain (Pain Scale 1-3) 05/02/20 08:45 06/01/20 08:44 05/08/20 20:28 Acetaminophen/ Hydrocodone Bitart ([place] 5/325) 1 tab Q4H PRN GT For Pain 05/09/20 16:30 05/16/20 11:59 05/11/20 09:58 Albuterol/ Ipratropium (Albuterol/ Ipratropium) 3 ml Q6H PRN HHN Shortness of Breath 05/11/20 09:00 05/16/20 08:59 05/11/20 09:20 Amlodipine Besylate (Norvasc) 2.5 mg BID GT 05/02/20 18:00 06/02/20 08:59 05/11/20 08:31 Chlorhexidine Gluconate (Marlen-Hex 2%) 1 applic DAILY@1999 TOPIC 03/30/20 20:00 06/28/20 19:59 05/10/20 20:19 Enoxaparin Sodium (Lovenox) 80 mg EVERY 12 HOURS SUBQ 04/06/20 21:00 07/05/20 20:59 05/11/20 08:32 Famotidine (Pepcid) 20 mg Q12HR PRN GT HEARTBURN 05/08/20 13:15 06/01/20 15:14 Fluconazole (Diflucan) 100 mg DAILY ORAL 05/06/20 09:00 05/13/20 08:59 05/11/20 08:31 Hydralazine HCl (Apresoline) 10 mg Q4H PRN IV For High Blood Pressure 03/30/20 12:15 06/28/20 12:14 05/11/20 05:22 Lansoprazole (Prevacid) 30 mg DAILY GT 05/02/20 09:00 06/01/20 08:59 05/11/20 08:31 Lorazepam (Ativan) 1 mg Q6H PRN ORAL For Anxiety 05/09/20 20:45 05/16/20 20:44 05/11/20 08:31 Prednisone (predniSONE) 5 mg DAILY ORAL 05/12/20 09:00 06/05/20 08:59 Quetiapine Fumarate (SEROqueL) 50 mg EVERY 8 HOURS ORAL 04/29/20 12:00 06/11/20 11:59 05/11/20 05:22 Laboratory Tests 05/10/20 11:36: POC Whole Blood Glucose 128H No CHEM panel drawn today Height (Feet): 5 Height (Inches): 10.00 Weight (Pounds): 243 General Appearance: no apparent distress EENT: other - Trach to vent Cardiovascular: tachycardia Respiratory/Chest: decreased breath sounds Abdomen: distended Rubin Cooper MD May 11, 2020 10:50
[2020-05-11 12:00] VITALS: BP 155/80
--- NOTE | 2020-05-11 12:13 | Surgery Progress Note ---
Surgery Progress Note Subjective Procedure Performed tracheostomy Symptoms: improved Additional Comments improved no n/v labs noted pending subacute placement Objective Last 24 Hour Vital Signs Date Time Temp Pulse Resp B/P (MAP) Pulse Ox O2 Delivery O2 Flow Rate FiO2 05/11/20 11:21 104 25 35 05/11/20 09:20 118 21 99 Mechanical Ventilator 45 45 05/11/20 09:01 116 20 136/93 98 05/11/20 08:31 103 20 139/78 99 05/11/20 08:31 103 139/78 05/11/20 08:00 98.2 103 20 139/78 (98) 99 05/11/20 08:00 Mechanical Ventilator 05/11/20 08:00 35 05/11/20 07:32 106 05/11/20 07:16 107 28 35 05/11/20 06:21 104 128/72 (90) 05/11/20 06:03 98.1 05/11/20 05:22 169/107 05/11/20 04:00 100 05/11/20 04:00 35 05/11/20 04:00 Mechanical Ventilator 05/11/20 04:00 98.0 105 20 169/107 (127) 94 05/11/20 03:00 109 30 35 05/11/20 02:28 100 21 130/84 98 05/11/20 01:55 94 21 130/84 96 05/11/20 00:00 Mechanical Ventilator 05/11/20 00:00 35 05/11/20 00:00 94 05/11/20 00:00 98.0 92 19 129/84 (99) 95 05/10/20 23:24 93 22 35 05/10/20 20:00 97.9 90 27 124/83 (97) 95 05/10/20 20:00 35 05/10/20 20:00 88 05/10/20 20:00 Mechanical Ventilator 05/10/20 19:21 88 25 35 05/10/20 17:42 84 143/83 05/10/20 16:00 97.4 84 20 143/83 (103) 98 05/10/20 16:00 Mechanical Ventilator 05/10/20 16:00 35 05/10/20 15:18 88 05/10/20 15:00 84 18 35 I&O Intake and Output 05/10/20 05/11/20 19:00 07:00 Intake Total 790 ml 800 ml Output Total 1300 ml 700 ml Balance -510 ml 100 ml Free Water 140 ml 300 ml Tube Feeding 650 ml 500 ml Output Urine Total 1300 ml 700 ml # Bowel Movements 2 Dressing: dry Wound: clean, dry Cardiovascular: RSR Respiratory: decreased breath sounds Abdomen: soft, flat, non-tender, present bowel sounds, non-distended Extremities: no edema, no tenderness, no cyanosis Plan Problems: (1) Pneumonia (2) Staphylococcus aureus bacteremia (3) COVID-19 virus infection (4) Chest pain (5) Hypertension (6) Dehydration (7) Electrolyte imbalance (8) DMII (diabetes mellitus, type 2) (9) Protein malnutrition (10) Respiratory insufficiency Assessment & Plan: 64-year-old male with respiratory insufficiency intubated in an intensive care unit. Patient has been unable to safely wean off ventilatory support. Surgery called to evaluate for tracheostomy. After careful evaluation patient is a candidate for tracheostomy. In the meantime will obtain consent. If consent obtained will proceed with scheduling. Thank you for your participation's care will follow recommendations improving trach okay agitated weaning sedation no n/v cont weaning transition to oral meds via g tube get off drips improving downgraded weaning well more alert and awake responsive will need placement trach collar consideration pending sub acute placement okay for placement cont trach care leave sutures in place as dissolvable Booker Rausch May 11, 2020 12:13
--- NOTE | 2020-05-11 12:51 | General Progress Note ---
Subjective ROS Limited/Unobtainable: No Allergies: Coded Allergies: No Known Allergies (Unverified , 02/05/20) Objective Last 24 Hour Vital Signs Date Time Temp Pulse Resp B/P (MAP) Pulse Ox O2 Delivery O2 Flow Rate FiO2 05/11/20 12:00 35 05/11/20 12:00 Mechanical Ventilator 05/11/20 12:00 97.9 120 22 155/80 (105) 97 05/11/20 11:44 126 05/11/20 11:21 104 25 35 05/11/20 09:20 118 21 99 Mechanical Ventilator 45 45 05/11/20 09:01 116 20 136/93 98 05/11/20 08:31 103 20 139/78 99 05/11/20 08:31 103 139/78 05/11/20 08:00 98.2 103 20 139/78 (98) 99 05/11/20 08:00 Mechanical Ventilator 05/11/20 08:00 35 05/11/20 07:32 106 05/11/20 07:16 107 28 35 05/11/20 06:21 104 128/72 (90) 05/11/20 06:03 98.1 05/11/20 05:22 169/107 05/11/20 04:00 100 05/11/20 04:00 35 05/11/20 04:00 Mechanical Ventilator 05/11/20 04:00 98.0 105 20 169/107 (127) 94 05/11/20 03:00 109 30 35 05/11/20 02:28 100 21 130/84 98 05/11/20 01:55 94 21 130/84 96 05/11/20 00:00 Mechanical Ventilator 05/11/20 00:00 35 05/11/20 00:00 94 05/11/20 00:00 98.0 92 19 129/84 (99) 95 05/10/20 23:24 93 22 35 05/10/20 20:00 97.9 90 27 124/83 (97) 95 05/10/20 20:00 35 05/10/20 20:00 88 05/10/20 20:00 Mechanical Ventilator 05/10/20 19:21 88 25 35 05/10/20 17:42 84 143/83 05/10/20 16:00 97.4 84 20 143/83 (103) 98 05/10/20 16:00 Mechanical Ventilator 05/10/20 16:00 35 05/10/20 15:18 88 05/10/20 15:00 84 18 35 Intake and Output 05/10/20 05/11/20 19:00 07:00 Intake Total 790 ml 800 ml Output Total 1300 ml 700 ml Balance -510 ml 100 ml Free Water 140 ml 300 ml Tube Feeding 650 ml 500 ml Output Urine Total 1300 ml 700 ml # Bowel Movements 2 Height (Feet): 5 Height (Inches): 10.00 Weight (Pounds): 243 General Appearance: no apparent distress EENT: normal ENT inspection Neck: supple Cardiovascular: normal rate Respiratory/Chest: decreased breath sounds Abdomen: hypoactive bowel sounds Extremities: non-tender Assessment/Plan Status: stable, unchanged Assessment/Plan: hep c + but neg RNA GTF reglan 10 mg tolerating TF repeat labs fu LFTS>>>improving pepcid iv will fu Da Quintero MD May 11, 2020 12:51
[2020-05-11 15:54] VITALS: BP 138/74
[2020-05-11] MEDS ORDERED: Metoprolol Tartrate 5mg/5ml Inj IVP SCH (16:12)
--- NOTE | 2020-05-11 16:14 | NUR ---
NURSE NOTES: From morning pt started episodes of SOB, YENI Marinelli visited pt and ordered BT Duoneb, noted and carried out. but pt still has episodes of SOB and tachycardia, Dr Awan is aware and ordered change DuoNeb to Atrovent and stat metoprolol ivp, noted and carried out. will continue to close monitoring.
--- NOTE | 2020-05-11 16:41 | NUR ---
INSURANCE CLINCALS FAXED TO [employer] T: [phone] #1 F: [phone] AND ALFRED [employer] HELPER [employer]UIT:JACQUELINE JAMES T: [phone] F: [phone]
--- NOTE | 2020-05-11 17:25 | NUR ---
NURSE NOTES:WOUND CARE FOLLOW-uP NOTES:PT presented with Multiple Pressure Injuries , DVT L Upper Extremity, S/P Tracheostomy, S/P Gastrostomy. Skin Assessed around tracheal stoma and neck and no evidence of skin breakdown noted. Gt site is clean,dry and intact. Gt site washed with soap and water and left open to air. L arm is edematous. Non-Blanchable erythema L elbow. L upper extremity weeping small amt serous exudate. L arm elevated on pillow. Sacral DTPI reabsorbing(L)6cm x (W04.5cm. Base of Pressure Injury is dark brown without erythema or induration; Partial opening noted to R Of Sacrum(L)1.2cm x (W)0.8cm. Base of wound is maroon but dry. Unstageable Pressure Injury R ischium(L)3.7cm x (W)1.8cm. Base of wound is 90% slough , 10%re-epithelialization. Bordered by Hyperpigmentation.Small amt serous exudate noted. Unstageable Pressure Injury Scrotum. (L)2.5cm x (W)1.9cm. Base of wound is 90% slough,10% re-epithelialization.. No odor or exudate noted. No evidence of additional skin breakdown periwound. Unstageable Pressure Injury Lateral/plantar R foot (L)3cm x (W)2.3cm.Stable dry eschar at base of wound . Edges are adherent to base of wound. No evidence of additional skin breakdown periwound. Unstageable Pressure Injury Plantar Plantar R foot (L)0.7cm x (W)0.6cm. Stable dry eschar with attached borders. No erythema,fluctuance or induration periwound. Reabsorbed DTPI Lateral L foot . Loose dry brown capped easily removed, with underlying pink epithelial noted. Both heels are dry but blanchable. No new skin concerns noted. Wound Tx are effective and continued as ordered. All wound prevention protocols continued as care-planned.
--- NOTE | 2020-05-11 17:34 | Infectious Diseases Prog Note ---
Assessment/Plan Assessment/Plan ASSESSMENT AND PLAN: 1. hx staph aureus bacteremia/mssa - s/p tx covid-19 +, hypoxia, sob, chest x-ray worse, ? PE, ? HCAP/aspiration pna trach/vent ? fungal uti, low grade fevers diarrhea - c.diff. negative - s/p zosyn and vancomycin - s/p diflucan - s/p steroids - picc line changed - s/p bactrim for pneumocystis prophylaxis - s/p tx for mssa bacteremia and ? endocarditis - monitor hypoxia, labs and chest x-ray - surveillance blood cultures negative 2. covid-19 isolation removed - covid-19 recovered 3. Hypertension history. Blood pressure treatment primary care team. 4. Elevated blood sugars. Blood sugar treatment per primary care team. 5. No known drug allergies. 6. Social history is positive for smoking. 7. Family history is noncontributory. 8. MAR was noted. 9. Case was discussed with RN. 10. Continue treatment per primary consultants. Subjective Constitutional: Reports: fatigue, other - + trach/vent, no pressros ; Denies: fever HEENT: Reports: congestion Respiratory: Reports: shortness of breath Cardiovascular: Denies: chest pain Gastrointestinal/Abdominal: Denies: nausea, vomiting, diarrhea Genitourinary: Reports: other - + joseph Psychiatric: Reports: other - NA Skin: Denies: rash Hematologic: Denies: bleeding Musculoskeletal: Denies: pain Allergies: Coded Allergies: No Known Allergies (Unverified , 02/05/20) Objective Last 24 Hour Vital Signs Date Time Temp Pulse Resp B/P (MAP) Pulse Ox O2 Delivery O2 Flow Rate FiO2 05/11/20 17:04 119 128/77 05/11/20 16:21 146 150/85 05/11/20 16:13 141 05/11/20 16:00 40 05/11/20 16:00 Mechanical Ventilator 05/11/20 15:54 97.7 140 24 138/74 (95) 95 05/11/20 15:28 118 32 99 Mechanical Ventilator 40 116 29 40 05/11/20 15:07 122 30 135/68 97 05/11/20 14:37 112 31 165/85 95 05/11/20 14:37 165/85 05/11/20 12:00 35 05/11/20 12:00 Mechanical Ventilator 05/11/20 12:00 97.9 120 22 155/80 (105) 97 05/11/20 11:44 126 05/11/20 11:21 104 25 35 05/11/20 09:20 118 21 99 Mechanical Ventilator 45 45 05/11/20 09:01 116 20 136/93 98 05/11/20 08:31 103 20 139/78 99 05/11/20 08:31 103 139/78 05/11/20 08:00 98.2 103 20 139/78 (98) 99 05/11/20 08:00 Mechanical Ventilator 05/11/20 08:00 35 05/11/20 07:32 106 05/11/20 07:16 107 28 35 05/11/20 06:21 104 128/72 (90) 05/11/20 06:03 98.1 05/11/20 05:22 169/107 05/11/20 04:00 100 05/11/20 04:00 35 05/11/20 04:00 Mechanical Ventilator 05/11/20 04:00 98.0 105 20 169/107 (127) 94 05/11/20 03:00 109 30 35 05/11/20 02:28 100 21 130/84 98 05/11/20 01:55 94 21 130/84 96 05/11/20 00:00 Mechanical Ventilator 05/11/20 00:00 35 05/11/20 00:00 94 05/11/20 00:00 98.0 92 19 129/84 (99) 95 05/10/20 23:24 93 22 35 05/10/20 20:00 97.9 90 27 124/83 (97) 95 05/10/20 20:00 35 05/10/20 20:00 88 05/10/20 20:00 Mechanical Ventilator 05/10/20 19:21 88 25 35 05/10/20 17:42 84 143/83 Height (Feet): 5 Height (Inches): 10.00 Weight (Pounds): 243 General Appearance: no acute distress HEENT: normocephalic, atraumatic, anicteric, no JVD Respiratory/Chest: crackles/rales, rhonchi - bilaterally Cardiovascular: normal rate, regular rhythm, no gallop/murmur Abdomen: normal bowel sounds, soft, non tender, no organomegaly, non distended Genitourinary: other - + joseph Extremities: no cyanosis Skin: no rash Neurologic/Psychiatric: alert, responsive Lymphatic: no neck adenopathy Musculoskeletal: no effusion CT chest: IMPRESSION: There are mild subpleural ground-glass and consolidating infiltrates in the dependent portions of both lower lobes and to lesser degree the upper lobes consistent with bilateral pneumonia. The infiltrates are typical for Covid 19. No evidence of pulmonary embolus. CT abdomen and pelvis: IMPRESSION: 1. Scattered hepatic hypodense lesions, too small to characterize on this examination without intravenous contrast. 2. Colonic diverticulosis without evidence of acute diverticulitis. 3. Scattered enlarged mesenteric lymph nodes, presumably reactive. teral pneumonia. The infiltrates are typical for Covid 19. No evidence of pulmonary embolus. Chest x-ray - 12/19/19 - Indication: Shortness of breath Technique: One view of the chest Comparison: 02/17/2020 Findings: Interim worsening of bilateral infiltrates, particularly on the right. The heart is borderline enlarged. The pleural spaces are clear. Left arm PICC is again demonstrated Impression: Worsening bilateral infiltrates over one day, likely pneumonia CT chest - 02/19/20 - IMPRESSION: Increased extensive patchy ground-glass opacities and densities throughout the lungs, suggestive of Covid 19 infection. Chest x-ray 02/23/20 - Procedure: XRAY Chest 1v As Indication: Reason For Exam: INFECT Technique: One view of the chest Comparison: 02/20/2020 Findings: Allowing for differences in exposure technique, bilateral mid and lower lung infiltrates are probably unchanged. The heart size is normal. The pleural s paces are clear. Impression: Unchanged, over 4 days, findings as above. Chest x-ray - 02/25/20 - FINDINGS: Lungs: Interval slightly worsening bilateral airspace disease. Pleural space: Unremarkable. No pneumothorax. Heart: Unremarkable. No cardiomegaly. Mediastinum: Unremarkable. Bones/joints: Unremarkable. IMPRESSION: Interval slightly worsening bilateral airspace disease. Chest x-ray - 03/02/20 - Procedure: XRAY Chest 1v Indication: Shortness of breath Technique: One view of the chest Comparison: 02/25/2020 Findings: Bilateral interstitial and airspace infiltrates are unchanged. The hea rt size is normal. Left arm PICC is again demonstrated Impression: Unchanged, over one day, findings as above. Chest x-ray - 03/06/20 - Procedure: XRAY Chest 1v Indication: Shortness of breath Technique: One view of the chest Comparison: 03/02/2020 Findings: Bilateral infiltrates are unchanged. Normal heart size. Pleural spaces are clear Chest x-ray - 03/12/10 - Impression: COMPARISON: Chest radiograph March 06, 2020. FINDINGS/IMPRESSION: Improving basilar infiltrates. Follow chest radiograph recommended. The upper lung finley are clear. No pneumothorax. Stable cardiomegaly. Stable left upper extremity PICC line. anged, over 4 days, findings as above. Chest x-ray - 03/17/20 - Procedure: XRAY Chest 1v Indication: Shortness of breath Technique: One view of the chest Comparison: 03/12/2020 Findings: Left arm PICC is again demonstrated. Infiltrates are unchanged. The heart size is upper limits of normal. Impression: Unchanged, over 5 days, findings as above. Abdominal US - IMPRESSION: 1. Gallbladder is normal. 2. Hepatic steatosis. 3. 1.7 cm cyst right kidney. Impression. Chest x-ray - Procedure: XRAY Chest 1v Indication: Shortness of breath Technique: One view of the chest Comparison: 03/17/2020 Findings: Bilateral right greater than left infiltrates again demonstrated. The heart size is normal. There is a left arm PICC in good position. Impression: Unchanged, over 5 days, findings as above. Chest x-ray - 03/29/20 - Procedure: XRAY Chest 1v Indication: Cough Technique: One view of the chest Comparison: 03/28/2020 Findings: Bilateral infiltrates are unchanged or slightly worse, allowing for differences in exposure technique. The pleural spaces are clear. The heart size is normal. Stable satisfactory position of endotracheal tube, left arm PICC. Orogastric tube has retracted somewhat the position remains satisfactory. Impression: Stable to slightly worse bilateral infiltrates. Otherwise little c hange over one day Chest x-ray - 03/31/20 - Procedure: XRAY Chest 1v Indication: Post endotracheal tube repositioning Technique: One view of the chest Comparison: 3 hours earlier Findings: Interim advancement of endotracheal tube, tip projecting approximately 5 cm above the sunny. Interim advancement of orogastric tube as well. Bilateral infiltrates are unchanged. Left arm PICC remains Impression: Improved and now satisfactory tube positions as described. ICU nurse Maeve notified at the time of interpretation Chest x-ray - 04/02/20 - COMPARISON: Chest x-rays dated 03/31/20 and 03/12/20. FINDINGS: Lungs: No significant change in bilateral prominent interstitial markings. The lungs are otherwise clear without focal consolidation. Pleural space: Unremarkable. The costophrenic angles are sharp. No visible pneumothorax. Heart: Unremarkable. No cardiomegaly. Mediastinum: Unremarkable. Bones/joints: Unremarkable. Tubes, lines and devices: Endotracheal tube tip 6.5 cm above the sunny. NG tube tip in the distal stomach. Telemetry leads overlie the thorax. IMPRESSION: No significant change in bilateral prominent interstitial markings. Procedure: XRAY Chest 1v Procedure: XRAY Chest 1v Reason for study: Shortness of breath 04/06/20 - Comparison films: 04/02/2020. FINDINGS: Endotracheal tube and NG tube remain in place. There is worsening of right basilar infiltrates. Some haziness in left lung base unchanged. Cardiac and mediastinal silhouette are within normal limits. CP angles are sharp. The bony thorax appear unremarkable. IMPRESSION: Worsening of right basilar infiltrate. Chest x-ray - 04/09/20 - Procedure: XRAY Chest 1v FILM CXR 1 VIEW INDICATION: Infection COMPARISON: April 05, 2020 FINDINGS: Single frontal view demonstrates a normal cardiomediastinal silhouette. Endotracheal tube in place with tip above the sunny. Elevation of the right hemidiaphragm. Interstitial prominence with bilateral lower lobe infiltrates. Lung bases appear worse from the prior exam. Small right effusion. Right-sided PICC line with tip in the superior vena cava. Enteric tube in place. IMPRESSION: Interstitial prominence and bilateral lower lobe pneumonia with worsening appearance from the prior study. Chest x-ray - 04/12/20 - Procedure: XRAY Chest 1v Indication: Shortness of breath Technique: One view of the chest Comparison: 04/09/2020 Findings: Stable satisfactory tube and line positions. Bilateral infiltrates have worsened slightly since prior study. The heart size is normal. Impression: Worsening bilateral infiltrates, over 3 days Chest x-ray - 04/15/20 - COMPARISON: 02/11/21. FINDINGS: Lungs: There is been no significant change in mild to moderate patchy diffuse bilateral alveolar infiltrates which are most prominent in the lung bases. Pleural space: Unremarkable. No pneumothorax. Heart: Unremarkable. No cardiomegaly. Mediastinum: Unremarkable. Bones/joints: Unremarkable. Tubes, lines and devices: There is an endotracheal tube, right-sided PICC line and NG tube in good position. IMPRESSION: There is been no significant change in mild to moderate patchy diffuse bilateral alveolar infiltrates which are most prominent in the lung bases. Chest x-ray - 04/18/20 - Procedure: XRAY Chest 1v Indication: Cough Technique: One view of the chest Comparison: 04/15/2020 Findings: Less optimal inspiration currently than previously. Stable satisfactory positions of endotracheal and orogastric tubes and right arm PICC. Bilateral infiltrates are again demonstrated, unchanged. Impression: Unchanged, over 3 days, findings as above. Chest x-ray - 04/21/20 - Procedure: XRAY Chest 1v Indication: Dyspnea Technique: One view of the chest Comparison: 04/18/2020 Findings: Stable tube and line positions. Bilateral infiltrates are unchanged Impression: Unchanged, over one day, findings as above. Procedure: XRAY Chest 1v Procedure: XRAY Chest 1v Reason for study: Reason For Exam: SOB Chest x-ray - 04/25/20 - Comparison films: 04/21/2020. FINDINGS: Endotracheal tube, NG tube and right PICC line remain in place. Vascularity is normal. Bilateral infiltrates are unchanged. Cardiac and mediastinal silhouette are within normal limits. CP angles are sharp. The bony thorax appear unremarkable. IMPRESSION: NO SIGNIFICANT CHANGE COMPARED TO PREVIOUS EXAM. Chest x-rasy - 04/30/20 - FINDINGS: Lungs: Bilateral patchy pulmonary opacities concerning for pneumonia, not significantly changed compared to the prior chest x-ray. Pleural space: Unremarkable. The costophrenic angles are sharp. No visible pneumothorax. Heart: Unremarkable. No cardiomegaly. Mediastinum: Unremarkable. Bones/joints: Unremarkable. Tubes, lines and devices: Tracheostomy tube in place, with expected positioning. Telemetry leads overlie the thorax. Right arm PICC with catheter tip in the SVC region. IMPRESSION: Bilateral patchy pulmonary opacities concerning for pneumonia, not significantly changed compared to the prior chest x-ray. Microbiology Date/Time Source Procedure Growth Status 05/02/20 15:25 Urine,Clean Catch Urine Culture - Final Kat Parapsilosis Complete 04/29/20 19:00 Blood Blood Culture - Final NO GROWTH AFTER 5 DAYS Complete 04/14/20 16:35 Stool Clostridium difficile Toxin Assay - Final Complete 04/12/20 08:40 Sputum Gram Stain - Final Complete 04/12/20 08:40 Sputum Sputum Culture - Final NORMAL UPPER RESPIRATORY WILIAM AT 48 ... Complete Labs Test 05/08/20 23:00 05/09/20 04:00 05/09/20 05:10 05/09/20 11:15 White Blood Count 9.2 K/UL (4.8-10.8) Red Blood Count 3.97 M/UL (4.70-6.10) Hemoglobin 11.4 G/DL (14.2-18.0) Hematocrit 35.6 % (42.0-52.0) Mean Corpuscular Volume 90 FL (80-99) Mean Corpuscular Hemoglobin 28.6 PG (27.0-31.0) Mean Corpuscular Hemoglobin Concent 32.0 G/DL (32.0-36.0) Red Cell Distribution Width 15.8 % (11.6-14.8) Platelet Count 337 K/UL (150-450) Mean Platelet Volume 6.4 FL (6.5-10.1) Neutrophils (%) (Auto) 73.6 % (45.0-75.0) Lymphocytes (%) (Auto) 19.9 % (20.0-45.0) Monocytes (%) (Auto) 4.9 % (1.0-10.0) Eosinophils (%) (Auto) 1.0 % (0.0-3.0) Basophils (%) (Auto) 0.6 % (0.0-2.0) Sodium Level 135 MMOL/L (136-145) Potassium Level 3.7 MMOL/L (3.5-5.1) Chloride Level 97 MMOL/L (98-107) Carbon Dioxide Level 29 MMOL/L (21-32) Anion Gap 9 mmol/L (5-15) Blood Urea Nitrogen 15 mg/dL (7-18) Creatinine 0.5 MG/DL (0.55-1.30) Estimat Glomerular Filtration Rate > 60 mL/min (>60) Glucose Level 82 MG/DL (74-106) Calcium Level 9.2 MG/DL (8.5-10.1) Total Bilirubin 0.5 MG/DL (0.2-1.0) Aspartate Amino Transf (AST/SGOT) 17 U/L (15-37) Alanine Aminotransferase (ALT/SGPT) 30 U/L (12-78) Alkaline Phosphatase 94 U/L (46-116) Total Protein 6.7 G/DL (6.4-8.2) Albumin 3.1 G/DL (3.4-5.0) Globulin 3.6 g/dL Albumin/Globulin Ratio 0.9 (1.0-2.7) POC Whole Blood Glucose 107 MG/DL (74-106) 122 MG/DL (74-106) Test 05/09/20 17:15 05/10/20 03:15 05/10/20 11:36 POC Whole Blood Glucose 114 MG/DL (74-106) 128 MG/DL (74-106) White Blood Count 9.4 K/UL (4.8-10.8) Red Blood Count 3.74 M/UL (4.70-6.10) Hemoglobin 10.7 G/DL (14.2-18.0) Hematocrit 33.6 % (42.0-52.0) Mean Corpuscular Volume 90 FL (80-99) Mean Corpuscular Hemoglobin 28.6 PG (27.0-31.0) Mean Corpuscular Hemoglobin Concent 31.9 G/DL (32.0-36.0) Red Cell Distribution Width 15.9 % (11.6-14.8) Platelet Count 316 K/UL (150-450) Mean Platelet Volume 6.2 FL (6.5-10.1) Neutrophils (%) (Auto) 77.6 % (45.0-75.0) Lymphocytes (%) (Auto) 14.5 % (20.0-45.0) Monocytes (%) (Auto) 5.8 % (1.0-10.0) Eosinophils (%) (Auto) 1.5 % (0.0-3.0) Basophils (%) (Auto) 0.6 % (0.0-2.0) Sodium Level 137 MMOL/L (136-145) Potassium Level 3.7 MMOL/L (3.5-5.1) Chloride Level 99 MMOL/L (98-107) Carbon Dioxide Level 30 MMOL/L (21-32) Anion Gap 8 mmol/L (5-15) Blood Urea Nitrogen 15 mg/dL (7-18) Creatinine 0.5 MG/DL (0.55-1.30) Estimat Glomerular Filtration Rate > 60 mL/min (>60) Glucose Level 91 MG/DL (74-106) Calcium Level 8.8 MG/DL (8.5-10.1) Total Bilirubin 0.4 MG/DL (0.2-1.0) Aspartate Amino Transf (AST/SGOT) 15 U/L (15-37) Alanine Aminotransferase (ALT/SGPT) 29 U/L (12-78) Alkaline Phosphatase 97 U/L (46-116) Total Protein 6.3 G/DL (6.4-8.2) Albumin 3.0 G/DL (3.4-5.0) Globulin 3.3 g/dL Albumin/Globulin Ratio 0.9 (1.0-2.7) Current Medications Medications (Trade) Dose Ordered Sig/Dennis Route PRN Reason Start Time Stop Time Status Last Admin Dose Admin Acetaminophen (Tylenol) 650 mg Q4H PRN GT Mild Pain (Pain Scale 1-3) 05/02/20 08:45 06/01/20 08:44 05/08/20 20:28 Acetaminophen/ Hydrocodone Bitart (Reserve 5/325) 1 tab Q4H PRN GT For Pain 05/09/20 16:30 05/16/20 11:59 05/11/20 09:58 Amlodipine Besylate (Norvasc) 2.5 mg BID GT 05/02/20 18:00 06/02/20 08:59 05/11/20 17:04 Chlorhexidine Gluconate (Marlen-Hex 2%) 1 applic DAILY@1999 TOPIC 03/30/20 20:00 06/28/20 19:59 05/10/20 20:19 Enoxaparin Sodium (Lovenox) 80 mg EVERY 12 HOURS SUBQ 04/06/20 21:00 07/05/20 20:59 05/11/20 08:32 Famotidine (Pepcid) 20 mg Q12HR PRN GT HEARTBURN 05/08/20 13:15 06/01/20 15:14 Fluconazole (Diflucan) 100 mg DAILY ORAL 05/06/20 09:00 05/13/20 08:59 05/11/20 08:31 Hydralazine HCl (Apresoline) 10 mg Q4H PRN IV For High Blood Pressure 03/30/20 12:15 06/28/20 12:14 05/11/20 14:37 Ipratropium [place] (Atrovent) 500 mcg Q6H PRN HHN Shortness of Breath 05/11/20 16:14 05/16/20 16:13 Lansoprazole (Prevacid) 30 mg DAILY GT 05/02/20 09:00 06/01/20 08:59 05/11/20 08:31 Lorazepam (Ativan) 1 mg Q6H PRN ORAL For Anxiety 05/09/20 20:45 05/16/20 20:44 05/11/20 14:37 Metoprolol Tartrate (Lopressor) 2.5 mg ONCE IVP 05/11/20 16:12 05/11/20 18:30 05/11/20 16:21 Prednisone (predniSONE) 5 mg DAILY ORAL 05/12/20 09:00 06/05/20 08:59 Quetiapine Fumarate (SEROqueL) 50 mg EVERY 8 HOURS ORAL 04/29/20 12:00 06/11/20 11:59 05/11/20 13:56 Kisha Salazar MD May 11, 2020 17:34
--- NOTE | 2020-05-11 19:20 | NUR ---
NURSE HAND-OFF REPORT: pt had episodes of tachycardia and SOB, Dr Young and YENI Marinelli are aware. Important Events on Shift: Patient Status: Diet: Pending Orders: Pending Results/Labs: Pending MD notification: Latest Vital Signs: Temperature 97.7 , Pulse 119 , B/P 128 /77 , Respiratory Rate 24 , O2 SAT 95 , Mechanical Ventilator, O2 Flow Rate . Vital Sign Comment: EKG Rhythm: Sinus Tachycardia Rhythm change?: Y Notified?: Y -Dr Emperatriz INTERIANO Response: Order Received& Read Back Latest Hassan Fall Score: 35 Fall Risk: Medium Risk Safety Measures: Call light Within Reach, Bed Alarm Zone 2, Side Rails Side Rails x3, Bed position Low and Locked. Fall Precautions: Yellow Socks Yellow Gown Door Sign Patient Fall Education Report given to . pt is awake and stable, HR 120 SPO2 98%, Endorsed plan of care, endorsed to monitor HR and SPO2 and do ECG tomorrow morning and send to Dr Awan as order.
--- NOTE | 2020-05-11 19:20 | NUR ---
NURSE NOTES: Pt report received from Zenaida Bond RN. pt remains stable/ asymptomatic. pt is alert and oriented times 4, no change in mentation. pt is showing ST on the monitor, doctor is aware. pt is sating 99% O2 on ventilator, no acute signs symptom of resp distress noted. pt bed is low, locked, armed, call light within reach, bed rails up times 3. will follow plan of care.
--- NOTE | 2020-05-11 20:22 | Cardiology Progress Note ---
Assessment/Plan Assessment/Plan Acute covid 19 pneumonia hypoxemia infiltrate bilat bacteremia hypernatremia / hyponatremia mild abn lfts tachy post intubation fever fungemia dvt upper ext now on 40 % fio2 , have been successfully weaned form 100 % s/p trach / peg now afebrile now hypoxemia unlikely cardiac related cxr last performed 04/30 will reorder for am tele reviewed sinus / sinus tachy now is on full dose anticoag due to dvt ue cr is stable d/w shilpi diallo for bp more awake off iv sedative bp better on norvasc repeat [facility] was sob agitted got hhn became sig tachy i was notified by rn admistrerd iv metoprolol now better avoid beta agonist inhaer if possilbe repeat cxr in am Subjective Cardiovascular: Denies: chest pain, lightheadedness, palpitations Respiratory: Reports: shortness of breath Gastrointestinal/Abdominal: Denies: abdominal pain Objective Last 24 Hour Vital Signs Date Time Temp Pulse Resp B/P (MAP) Pulse Ox O2 Delivery O2 Flow Rate FiO2 05/11/20 19:33 118 30 40 05/11/20 17:04 119 128/77 05/11/20 16:21 146 150/85 05/11/20 16:13 141 05/11/20 16:00 40 05/11/20 16:00 Mechanical Ventilator 05/11/20 15:54 97.7 140 24 138/74 (95) 95 05/11/20 15:28 118 32 99 Mechanical Ventilator 40 116 29 40 05/11/20 15:07 122 30 135/68 97 05/11/20 14:37 112 31 165/85 95 05/11/20 14:37 165/85 05/11/20 12:00 35 05/11/20 12:00 Mechanical Ventilator 05/11/20 12:00 97.9 120 22 155/80 (105) 97 05/11/20 11:44 126 05/11/20 11:21 104 25 35 05/11/20 09:20 118 21 99 Mechanical Ventilator 45 45 05/11/20 09:01 116 20 136/93 98 05/11/20 08:31 103 20 139/78 99 05/11/20 08:31 103 139/78 05/11/20 08:00 98.2 103 20 139/78 (98) 99 05/11/20 08:00 Mechanical Ventilator 05/11/20 08:00 35 05/11/20 07:32 106 05/11/20 07:16 107 28 35 05/11/20 06:21 104 128/72 (90) 05/11/20 06:03 98.1 05/11/20 05:22 169/107 05/11/20 04:00 100 05/11/20 04:00 35 05/11/20 04:00 Mechanical Ventilator 05/11/20 04:00 98.0 105 20 169/107 (127) 94 05/11/20 03:00 109 30 35 05/11/20 02:28 100 21 130/84 98 05/11/20 01:55 94 21 130/84 96 05/11/20 00:00 Mechanical Ventilator 05/11/20 00:00 35 05/11/20 00:00 94 05/11/20 00:00 98.0 92 19 129/84 (99) 95 05/10/20 23:24 93 22 35 General Appearance: no apparent distress, alert, on vent Neck: supple Cardiovascular: normal rate, tachycardia - mild Respiratory/Chest: lungs clear Abdomen: normal bowel sounds, non tender, soft Extremities: no swelling Intake and Output 05/10/20 05/11/20 19:00 07:00 Intake Total 790 ml 850 ml Output Total 1300 ml 700 ml Balance -510 ml 150 ml Free Water 140 ml 300 ml Tube Feeding 650 ml 550 ml Output Urine Total 1300 ml 700 ml # Bowel Movements 2 Objective pt seen persoanlly Manan Awan MD May 11, 2020 20:22
[2020-05-11] MEDS: Dyna-Hex 2% Top Sol 2oz TOPIC SCH (21:28)
--- NOTE | 2020-05-11 22:06 | NUR ---
NURSE NOTES: PTs PM meds passed. no change in condition.
[2020-05-12] VITALS: BP 129/74
[2020-05-12] MEDS: HYDROcodone/Acetamin 5/325 tab GT PRN ×4 (03:32→21:22)
[2020-05-12 04:00] VITALS: BP 147/67
--- NOTE | 2020-05-12 07:22 | NUR ---
NURSE HAND-OFF REPORT: Important Events on Shift:[NA] Patient Status: [stable] Diet: [per doctor order] Pending Orders: [na] Pending Results/Labs:[na] Pending MD notification:[na] Latest Vital Signs: Temperature 97.5 , Pulse 131 , B/P 147 /67 , Respiratory Rate 28 , O2 SAT 96 , Mechanical Ventilator, O2 Flow Rate . Vital Sign Comment: [stable] EKG Rhythm: Sinus Tachycardia Rhythm change?: N MD Notified?: Y -Dr Emperatriz INTERIANO Response: Order Received& Read Back Latest Hassan Fall Score: 35 Fall Risk: Medium Risk Safety Measures: Call light Within Reach, Bed Alarm Zone 2, Side Rails Side Rails x3, Bed position Low and Locked. Fall Precautions: Yellow Socks Yellow Gown Door Sign Patient Fall Education Report given to [Desi Christian RN].
[2020-05-12 08:00] VITALS: BP 114/74
[2020-05-12] MEDS: Fluconazole 100mg tab ORAL SCH (08:20)
[2020-05-12] MEDS: Enoxaparin 80mg Inj SUBQ SCH ×2 (08:23→21:20)
--- NOTE | 2020-05-12 08:26 | NUR ---
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 * Inadequate oral intake R/T clinical and respiratory status as evidenced by COVID-19 ++, on continuous BIPAP, prolonged meal refusals, pt is now on TPN, pt orally intubated (03/28), s/p trach placement (04/26), and s/p PEG placement (04/27), now on GT feeds. * Decreased sodium and fat needs r/t HTN and obesity as evidenced by pt w/ cardiac history, elev BP (159/98-> now improved, on BP meds and diuretics), BMI >30, obese per guidelines. (INACTIVE) CURRENT TF:Glucerna 1.5 goal of 50 + Prosource BID ENTERAL NUTRITION RECOMMENDATIONS: Glucerna 1.5 @ 50ml/hr x 24 hrs + Prosource 1pkt BID to provide 1200ml, 1800kcal, 99g +22g prot (121g total prot), 926ml free water * Maintain current TF order * Con't Prosource 1pkt BID (additional 22g prot) to better meet est prot needs. ADDITIONAL RECOMMENDATIONS: 1) Maintain calibrated bedscale wts 2) Monitor BGs closely w/ Solumedrol (POC glu wnl at this time) 3) Monitor lytes, replete as needed 4) Monitor TF tolerance: PEG placed 04/28, cont to increase TF to goal as tolerated 5) Wound healing: Add Michael BID (mix w/ 2-4oz of water) TF @ goal provides 100% RDI, add Vit C 500mg QD, ZnSO4 220mg [id number]
--- NOTE | 2020-05-12 08:35 | NUR ---
RADIOLOGY DEPT., CHEST X-RAY COMPLETED.-P.DYE
[2020-05-12] MEDS: Ipratropium 0.02% Inh Soln 2.5ml UD HHN PRN ×2 (08:48→22:10)
[2020-05-12 09:00] LABS: EOSINOPHILS % (AUTO) 1.2 % (0.0-3.0); HEMATOCRIT 35.9 % (42.0-52.0); HEMOGLOBIN 11.4 G/DL (14.2-18.0); LYMPHOCYTES % (AUTO) 12.5 % (20.0-45.0); MEAN CORPUSCULAR VOLUME 89 FL (80-99); MONOCYTES % (AUTO) 6.6 % (1.0-10.0); NEUTROPHILS % (AUTO) 78.7 % (45.0-75.0); PLATELET COUNT 393 K/UL (150-450); RED BLOOD COUNT 4.04 M/UL (4.70-6.10); RED CELL DISTRIBUTION WIDTH 15.8 % (11.6-14.8); WHITE BLOOD COUNT 11.9 K/UL (4.8-10.8)
[2020-05-12 09:19] LABS: ALANINE AMINOTRANSFERASE 32 U/L (12-78); ALBUMIN/GLOBULIN RATIO 0.8 (1.0-2.7); ALKALINE PHOSPHATASE 106 U/L (46-116); ANION GAP 9 mmol/L (5-15); ASPARTATE AMINO TRANSFERASE 16 U/L (15-37); BILIRUBIN,TOTAL 0.5 MG/DL (0.2-1.0); BLOOD UREA NITROGEN 14 mg/dL (7-18); CALCIUM 9.3 MG/DL (8.5-10.1); CARBON DIOXIDE 30 MMOL/L (21-32); CHLORIDE 99 MMOL/L (98-107); CREATININE 0.5 MG/DL (0.55-1.30); PHOSPHORUS 3.1 MG/DL (2.5-4.9); POTASSIUM 4.1 MMOL/L (3.5-5.1); SODIUM 137 MMOL/L (136-145)
--- NOTE | 2020-05-12 09:46 | Surgery Progress Note ---
Surgery Progress Note Subjective Procedure Performed tracheostomy Additional Comments looks much better awake responsive comfortable no n/v labs noted wbc 12k Objective Last 24 Hour Vital Signs Date Time Temp Pulse Resp B/P (MAP) Pulse Ox O2 Delivery O2 Flow Rate FiO2 05/12/20 08:20 112 114/74 05/12/20 08:00 114 05/12/20 08:00 98.1 112 20 114/74 (87) 98 05/12/20 08:00 40 05/12/20 07:00 104 25 40 05/12/20 05:22 131 28 40 05/12/20 04:02 97.5 05/12/20 04:00 130 05/12/20 04:00 Mechanical Ventilator 05/12/20 04:00 40 05/12/20 04:00 98.0 125 30 147/67 (93) 96 05/12/20 03:16 129 30 40 05/12/20 01:15 127 30 40 05/12/20 00:00 128 05/12/20 00:00 40 05/12/20 00:00 Mechanical Ventilator 05/12/20 00:00 98.1 127 28 129/74 (92) 95 05/11/20 23:40 98.7 05/11/20 23:12 130 30 40 05/11/20 21:57 116 20 137/58 99 05/11/20 21:27 117 20 139/62 99 05/11/20 21:15 128 29 40 05/11/20 20:00 114 05/11/20 20:00 117 99 05/11/20 20:00 40 05/11/20 20:00 Mechanical Ventilator 05/11/20 19:33 118 30 40 05/11/20 17:04 119 128/77 05/11/20 16:21 146 150/85 05/11/20 16:13 141 05/11/20 16:00 40 05/11/20 16:00 Mechanical Ventilator 05/11/20 15:54 97.7 140 24 138/74 (95) 95 05/11/20 15:28 118 32 99 Mechanical Ventilator 40 116 29 40 05/11/20 15:07 122 30 135/68 97 05/11/20 14:37 112 31 165/85 95 05/11/20 14:37 165/85 05/11/20 12:00 35 05/11/20 12:00 Mechanical Ventilator 05/11/20 12:00 97.9 120 22 155/80 (105) 97 05/11/20 11:44 126 05/11/20 11:21 104 25 35 I&O Intake and Output 05/11/20 05/12/20 19:00 07:00 Intake Total 900 ml 550 ml Output Total 900 ml 1100 ml Balance 0 ml -550 ml Free Water 300 ml Tube Feeding 600 ml 550 ml Output Urine Total 900 ml 1100 ml # Bowel Movements 1 Dressing: dry Wound: clean Cardiovascular: RSR Respiratory: clear, decreased breath sounds Abdomen: soft, non-tender, present bowel sounds, non-distended Extremities: no edema, no tenderness, no cyanosis Laboratory Tests Test 05/12/20 08:45 White Blood Count 11.9 K/UL (4.8-10.8) H Red Blood Count 4.04 M/UL (4.70-6.10) L Hemoglobin 11.4 G/DL (14.2-18.0) L Hematocrit 35.9 % (42.0-52.0) L Mean Corpuscular Volume 89 FL (80-99) Mean Corpuscular Hemoglobin 28.2 PG (27.0-31.0) Mean Corpuscular Hemoglobin Concent 31.7 G/DL (32.0-36.0) L Red Cell Distribution Width 15.8 % (11.6-14.8) H Platelet Count 393 K/UL (150-450) Mean Platelet Volume 6.1 FL (6.5-10.1) L Neutrophils (%) (Auto) 78.7 % (45.0-75.0) H Lymphocytes (%) (Auto) 12.5 % (20.0-45.0) L Monocytes (%) (Auto) 6.6 % (1.0-10.0) Eosinophils (%) (Auto) 1.2 % (0.0-3.0) Basophils (%) (Auto) 1.0 % (0.0-2.0) Sodium Level 137 MMOL/L (136-145) Potassium Level 4.1 MMOL/L (3.5-5.1) Chloride Level 99 MMOL/L (98-107) Carbon Dioxide Level 30 MMOL/L (21-32) Anion Gap 9 mmol/L (5-15) Blood Urea Nitrogen 14 mg/dL (7-18) Creatinine 0.5 MG/DL (0.55-1.30) L Estimat Glomerular Filtration Rate > 60 mL/min (>60) Glucose Level 127 MG/DL (74-106) H Calcium Level 9.3 MG/DL (8.5-10.1) Phosphorus Level 3.1 MG/DL (2.5-4.9) Magnesium Level 2.0 MG/DL (1.8-2.4) Total Bilirubin 0.5 MG/DL (0.2-1.0) Aspartate Amino Transf (AST/SGOT) 16 U/L (15-37) Alanine Aminotransferase (ALT/SGPT) 32 U/L (12-78) Alkaline Phosphatase 106 U/L (46-116) C-Reactive Protein, Quantitative 9.1 mg/dL (0.00-0.90) H Pro-B-Type Natriuretic Peptide 616 pg/mL (0-125) H Total Protein 6.8 G/DL (6.4-8.2) Albumin 3.0 G/DL (3.4-5.0) L Globulin 3.8 g/dL Albumin/Globulin Ratio 0.8 (1.0-2.7) L Plan Problems: (1) Pneumonia (2) Staphylococcus aureus bacteremia (3) COVID-19 virus infection (4) Chest pain (5) Hypertension (6) Dehydration (7) Electrolyte imbalance (8) DMII (diabetes mellitus, type 2) (9) Protein malnutrition (10) Respiratory insufficiency Assessment & Plan: 64-year-old male with respiratory insufficiency intubated in an intensive care unit. Patient has been unable to safely wean off ventilatory support. Surgery called to evaluate for tracheostomy. After careful evaluation patient is a candidate for tracheostomy. In the meantime will obtain consent. If consent obtained will proceed with scheduling. Thank you for your participation's care will follow recommendations improving trach okay agitated weaning sedation no n/v cont weaning transition to oral meds via g tube get off drips improving downgraded weaning well more alert and awake responsive will need placement trach collar consideration pending sub acute placement okay for placement cont trach care leave sutures in place as dissolvable Booker Rausch May 12, 2020 09:46
--- NOTE | 2020-05-12 09:58 | Pulmonology Progress Note ---
Subjective ROS Limited/Unobtainable: No Interval Events: S/p tracheostomy 04/25/20 Constitutional: Reports: fatigue, other - + trach/vent, no pressros ; Denies: fever HEENT: Repors: no symptoms Respiratory: Reports: dry cough, shortness of breath Cardiovascular: Reports: no symptoms Gastrointestinal/Abdominal: Denies: nausea, vomiting, diarrhea Psychiatric: Reports: other - NA Skin: Denies: rash Musculoskeletal: Denies: pain Allergies: Coded Allergies: No Known Allergies (Unverified , 02/05/20) Objective Last 24 Hour Vital Signs Date Time Temp Pulse Resp B/P (MAP) Pulse Ox O2 Delivery O2 Flow Rate FiO2 05/12/20 08:20 112 114/74 05/12/20 08:00 114 05/12/20 08:00 98.1 112 20 114/74 (87) 98 05/12/20 08:00 40 05/12/20 07:00 104 25 40 05/12/20 05:22 131 28 40 05/12/20 04:02 97.5 05/12/20 04:00 130 05/12/20 04:00 Mechanical Ventilator 05/12/20 04:00 40 05/12/20 04:00 98.0 125 30 147/67 (93) 96 05/12/20 03:16 129 30 40 05/12/20 01:15 127 30 40 05/12/20 00:00 128 05/12/20 00:00 40 05/12/20 00:00 Mechanical Ventilator 05/12/20 00:00 98.1 127 28 129/74 (92) 95 05/11/20 23:40 98.7 05/11/20 23:12 130 30 40 05/11/20 21:57 116 20 137/58 99 05/11/20 21:27 117 20 139/62 99 05/11/20 21:15 128 29 40 05/11/20 20:00 114 05/11/20 20:00 117 99 05/11/20 20:00 40 05/11/20 20:00 Mechanical Ventilator 05/11/20 19:33 118 30 40 05/11/20 17:04 119 128/77 05/11/20 16:21 146 150/85 05/11/20 16:13 141 05/11/20 16:00 40 05/11/20 16:00 Mechanical Ventilator 05/11/20 15:54 97.7 140 24 138/74 (95) 95 05/11/20 15:28 118 32 99 Mechanical Ventilator 40 116 29 40 05/11/20 15:07 122 30 135/68 97 05/11/20 14:37 112 31 165/85 95 05/11/20 14:37 165/85 05/11/20 12:00 35 05/11/20 12:00 Mechanical Ventilator 05/11/20 12:00 97.9 120 22 155/80 (105) 97 05/11/20 11:44 126 05/11/20 11:21 104 25 35 Intake and Output 05/11/20 05/12/20 19:00 07:00 Intake Total 900 ml 550 ml Output Total 900 ml 1100 ml Balance 0 ml -550 ml Free Water 300 ml Tube Feeding 600 ml 550 ml Output Urine Total 900 ml 1100 ml # Bowel Movements 1 General Appearance: WD/WN, no acute distress HEENT: normocephalic, atraumatic, status post trach Respiratory: chest wall non-tender Cardiovascular: normal rate, regular rhythm Abdomen: normal bowel sounds, soft, non tender, other - obese Laboratory Tests 05/12/20 08:45: White Blood Count 11.9H, Red Blood Count 4.04L, Hemoglobin 11.4L, Hematocrit 35.9L, Mean Corpuscular Volume 89, Mean Corpuscular Hemoglobin 28.2, Mean Corpuscular Hemoglobin Concent 31.7L, Red Cell Distribution Width 15.8H, Platelet Count 393, Mean Platelet Volume 6.1L, Neutrophils (%) (Auto) 78.7H, Lymphocytes (%) (Auto) 12.5L, Monocytes (%) (Auto) 6.6, Eosinophils (%) (Auto) 1.2, Basophils (%) (Auto) 1.0, Sodium Level 137, Potassium Level 4.1, Chloride Level 99, Carbon Dioxide Level 30, Anion Gap 9, Blood Urea Nitrogen 14, Creatinine 0.5L, Estimat Glomerular Filtration Rate > 60, Glucose Level 127H, Calcium Level 9.3, Phosphorus Level 3.1, Magnesium Level 2.0, Total Bilirubin 0.5, Aspartate Amino Transf (AST/SGOT) 16, Alanine Aminotransferase (ALT/SGPT) 32, Alkaline Phosphatase 106, C-Reactive Protein, Quantitative 9.1H, Pro-B-Type Natriuretic Peptide 616H, Total Protein 6.8, Albumin 3.0L, Globulin 3.8, Album in/Globulin Ratio 0.8L Current Medications Medications (Trade) Dose Ordered Sig/Dennis Route PRN Reason Start Time Stop Time Status Last Admin Dose Admin Acetaminophen (Tylenol) 650 mg Q4H PRN GT Mild Pain (Pain Scale 1-3) 05/02/20 08:45 06/01/20 08:44 05/08/20 20:28 Acetaminophen/ Hydrocodone Bitart ([place] 5/325) 1 tab Q4H PRN GT For Pain 05/09/20 16:30 05/16/20 11:59 05/12/20 08:22 Amlodipine Besylate (Norvasc) 2.5 mg BID GT 05/02/20 18:00 06/02/20 08:59 05/12/20 08:20 Chlorhexidine Gluconate (Marlen-Hex 2%) 1 applic DAILY@2000 TOPIC 03/30/20 20:00 06/28/20 19:59 05/11/20 21:28 Enoxaparin Sodium (Lovenox) 80 mg EVERY 12 HOURS SUBQ 04/06/20 21:00 07/05/20 20:59 05/12/20 08:23 Famotidine (Pepcid) 20 mg Q12HR PRN GT HEARTBURN 05/08/20 13:15 06/01/20 15:14 Fluconazole (Diflucan) 100 mg DAILY ORAL 05/06/20 09:00 05/13/20 08:59 05/12/20 08:20 Hydralazine HCl (Apresoline) 10 mg Q4H PRN IV For High Blood Pressure 03/30/20 12:15 06/28/20 12:14 05/11/20 14:37 Ipratropium [place] (Atrovent) 500 mcg Q6H PRN HHN Shortness of Breath 05/11/20 16:14 05/16/20 16:13 05/12/20 08:48 Lansoprazole (Prevacid) 30 mg DAILY GT 05/02/20 09:00 06/01/20 08:59 05/12/20 08:19 Lorazepam (Ativan) 1 mg Q6H PRN ORAL For Anxiety 05/09/20 20:45 05/16/20 20:44 05/11/20 21:27 Prednisone (predniSONE) 5 mg DAILY ORAL 05/12/20 09:00 06/05/20 08:59 05/12/20 08:21 Quetiapine Fumarate (SEROqueL) 50 mg EVERY 8 HOURS ORAL 04/29/20 12:00 06/11/20 11:59 05/12/20 05:23 Assessment/Plan Assessment/Plan 1.COVID-19 pneumonia. - Completed specific therapies - off solumedrol 20 Iv q 12 -> now on prednisone 5 mg PO QD - will add bactrim for PJP prophylaxis 2. DVT ppx - on lovenox 3. Hypertension - no longer on meds - Not requiring pressors 4. Leukocytosis; - ID following - Off abx - Candidemia documented 03/18/20 5. Elevated LFT - positive Hep C; treated in the past with IF 6. Respiratory failure -Intubated 03/28/20; s/p tracheostomy 04/25/20 -Gradually weaned off sedation IOV Has DVT; on full dose Lovenox Will wean down FiO2 as tolerated CXR shows bilateral interstitial changes? fibrosis? S/p PEG Off IV fluids Dc planning to subacute -> ordered case assembler consult for placement On seroquel 50 mg PO TID; On Ativan and [place] DC pending placement The care of this patient was discussed with my supervising physician Time spent for this encounter was approximately 31 minutes Edilson Marinelli May 12, 2020 09:58
[2020-05-12 12:00] VITALS: BP 131/87
--- NOTE | 2020-05-12 12:26 | Nephrology Progress Note ---
Assessment/Plan Problem List: (1) Dehydration (2) Electrolyte imbalance (3) COVID-19 virus infection (4) Pneumonia (5) DMII (diabetes mellitus, type 2) (6) Protein malnutrition Assessment Azotemia, hypernatremia Hypoalbuminemia Staff Otilia bacteremia COVID-19 isolation, pneumonia, bilateral infiltrate Hypertension Diabetes mellitus History of smoking Plan May 12: Labs reviewed. Renal parameters stable. Status quo. Continue per consultants. May 11: No labs drawn today. Will check can panel tomorrow. Medication list reviewed. Patient remains full code. Continue per consultants. May 10: Labs reviewed. Serum sodium higher. Renal parameters and electrolytes stable. Medication list reviewed. Continue per consultants. May 09: Labs reviewed. Serum sodium 135. Continue to monitor electrolytes. Medication list reviewed. Continue per current management. May 08: Labs reviewed. Renal parameters stable. Medication list reviewed. Continue per consultants. May 07: No labs drawn today reviewed. Clinically stable. Medication list reviewed. Will check lab tomorrow. Continue per consultants. May 06: Labs reviewed. Renal parameters stable. Continue per consultants. May 05: Labs reviewed. Renal parameters stable. Patient is due to be transferred to SCU. Continue per consultants. Medication list reviewed. May 04: Labs reviewed. Renal parameters stable. Overall status unchanged. Remains full code. Fed through GT tube. Trach to vent. FiO2 45%. Continue per consultants. May 03: No CHEM panel drawn today. Patient clinically stable. Has trach to vent and PEG. Will check lab tomorrow. May 02: Labs reviewed. Status quo. Patient is trached and vented. Also has PEG. Is full code. Stable from renal standpoint of view. May 01: Labs reviewed. Status quo. Patient has trach connected to vent. Has PEG. He is full code. FiO2 50%. April 30: Status quo. Labs reviewed. Renal parameters stable. Medication list reviewed. April 29: Status quo. Received PEG yesterday. Has trach connected to vent. FiO2 40%. Labs reviewed. Medication list reviewed. Continue same April 28: Status quo. Labs reviewed. Renal parameters stable. Patient n.p.o. due for PEG insertion. IV changed to D5 normal saline. Continue per consultants. April 27: Status quo. Labs reviewed. Medication list reviewed. Stable from renal standpoint of view. Abnormal electrolytes addressed. April 26: Patient is now trached and connected to vent. FiO2 70%. Labs reviewed. Renal parameters stable. Medication list reviewed. Continue per consultants. April 25: Status quo. Full code. FiO2 55%. No labs drawn today. Continue to monitor electrolytes and renal parameters. Continue per consultants. April 24: Status quo. Full code. Intubated on ventilator. FiO2 65%. Labs reviewed. Renal parameters and electrolytes stable. April 23: Status unchanged. Full code. Intubated on ventilator. FiO2 75%. Labs reviewed. Renal parameters stable. Continue per consultants. April 22: Labs reviewed. Patient remains intubated on ventilator and full code. FiO2 90%. Day 77 hospitalization. Not much to add from renal standpoint of view April 21: No CHEM panel drawn today. FiO2 60%. Patient full code. Continue per consultants. April 20: Labs reviewed. Renal parameters stable. Patient remains full code . Intubated on ventilator with FiO2 currently at 70%. Continue per consultants. April 19: No labs drawn today. Remains full code on FiO2 of 100%. Continue per consultants. April 18: Status quo. Labs reviewed. Renal parameters stable. April 17: Status quo. Intubated on ventilator. Full code. Labs reviewed. Electrolytes and renal parameters stable. Continue per consultants. April 16: Girlfriend in the room. Patient awake. Intubated. Full code. Labs reviewed. Abnormal electrolyte addressed. Continue per consultants. April 15: Labs reviewed. Electrolytes and renal parameters stable. Patient full code. Continues to be intubated on ventilator. April 14: Status quo. Labs reviewed. Remains intubated on ventilator. Full code. Continue per consultants. April 13: Status quo. Labs reviewed. Renal parameters electrolytes stable. Continue per current treatment plan. April 12: On higher FiO2. Will resume Lasix daily. Continue to monitor electrolytes and renal parameters. Per consultants. April 11: FiO2 went up to 85%. Renal parameters and electrolytes reasonably well-maintained. Will monitor serum potassium. Will give IV Lasix. April 10: Status quo. Labs reviewed. Remains intubated on ventilator with FiO2 of 65%. Remains full code. Stable from renal standpoint to view. Repeat vitamin D level on April 08 pending April 09: Status quo. Labs reviewed. Stable from renal standpoint of view. Continue per consultants. April 08: Discussed with RN. Labs reviewed. Clinically improving. Requires lower PEEP. Continue per pulmonary. Continue to monitor renal parameters. April 07: Remains full code and on ventilator. Labs reviewed. Renal parameters and electrolytes stable. Continue per consultants. Blood pressure marginally improved. April 06: Full code. On ventilator. Blood pressure 80-90 systolic. IV Lasix discontinued. Free water through tube feeding ordered. Continue to monitor electrolytes and serum sodium. Down on fentanyl as possible. Discussed with RN Kevin. Clonidine patch discontinued. April 05: Status quo. Remains full code. Remains intubated. Labs reviewed. Renal parameters stable. Serum sodium 150 unchanged. Continue per consultants. April 04: Remains intubated and on ventilator. Remains full code. Labs reviewed. Serum sodium 150 unchanged. Renal parameters stable. Continue per ID and pulmonary. April 03: Intubated. On ventilator. Full code. Labs reviewed. Serum sodium 150 unchanged. Continue to monitor renal parameters. Continue per pulmonary and ID. April 02: Full code. On ventilator. Discussed with RN. Serum sodium slightly higher. Will cut down on IV Lasix. Continue per consultants. Continue to monitor renal parameters and electrolytes. April 01: Full code. Remains on ventilator. Labs reviewed. Stable from renal standpoint of view. Continue per consultants. March 31: Full code . Remains intubated on ventilator. Labs reviewed. Patient appears toxic. Discussed with RN. Maintenance IV discontinued. Medication list reviewed. Blood pressure medication stopped due to low blood pressure. Levemir insulin stopped. Continue monitor blood sugar and sliding scale insulin. March 30: Full code. On ventilator. Labs reviewed. Clonidine patch dose inc reased. Lasix increased. 3% saline 1 time ordered. Continue to monitor electrolytes and renal parameters. March 29: Remains full code. On mechanical ventilation. On tube feeding. Will DC TPN. Will start on maintenance IV fluid. Continue to monitor renal parameters. March 28: On BiPAP. Full code. On TPN. Labs reviewed. Discussed with pharmacy. Continue as is. Watch serum potassium. March 27: Remains on BiPAP. No chemistry panel done today. Full code. On TPN. Will check lab tomorrow. March 26: Remains on BiPAP. Remains on TPN. Labs reviewed. Electrolytes and chemistries within normal limits. Continue as is. March 25: Remains on TPN. Labs reviewed. Discussed with pharmacy. Change IV Protonix to p.o. Continue 3% saline infusion with Lasix. Patient full code. March 24: Continue to be on TPN. Labs are reviewed. Aim to collect electrolytes. Discussed with pharmacy. Continue current consultants. March 23: Continues to be on TPN. Labs reviewed. Electrolytes and chemistrie s all acceptable. Discussed with pharmacy. Continue current management. March 22: On TPN. Labs reviewed. Low sodium noted. 3% saline to be continued. Continue to monitor electrolytes. Discussed with pharmacy. March 21: On TPN. Labs reviewed. Continue 3% saline and Lasix for mild hyponatremia. Continue TPN as these. Discussed with pharmacy. March 20: Remains on TPN. Labs reviewed. Serum sodium higher on IV Lasix and 3% saline infusion. Continue TPN as is. Continue to monitor renal parameters and electrolytes. Discussed with Dr. Mata March 19: Remains on TPN. Labs reviewed. Serum sodium 128. Will give 3% saline with IV Lasix. Continue to monitor electrolytes. No change in TPN composition. Discussed with pharmacy. March 18: Remains on TPN. Labs reviewed. Discussed with pharmacist. Will give 3 doses of IV Lasix 20 mg every 8 hours. Continue to monitor serum sodium electrolytes uric acid. White blood cells down. Continue per consultants. March 17: On TPN. Labs reviewed. Discussed with pharmacist. Sodium content increase. Continue to monitor CMP. Patient continues to have leukocytosis. March 16: On TPN. Labs reviewed. Discussed with pharmacist. Appropriate changes made. Continue to monitor electrolytes. March 15: Remains on TPN. Labs reviewed. Discussed with pharmacist. Continue per current management. March 14: Remains on TPN. Labs reviewed, stable. Vitamin D level low, replacement ordered. Continue to monitor electrolytes and renal parameters. March 13: Patient remains on TPN. Discussed with pharmacist. TPN's sodium content adjusted. Labs reviewed. Continue to monitor electrolytes. Blood pressure remains stable. Continue per consultants. March 12: Patient on TPN. Labs reviewed. CPK remains elevated. Abnormal electrolytes and high blood sugar discussed with pharmacist and TPN adjusted. Continue to monitor labs. Oral Protonix added. Ibuprofen discontinued. Can continue to monitor electrolytes and chemistries. Levemir for high blood sugar added. March 11: Patient on TPN. Labs as of 11:15 AM is still pending. Continue per current treatment plan. Will check labs and adjust TPN as needed. Continue per consultants. March 10: Patient on TPN. Labs reviewed. Electrolytes overall stable. CPK is elevated. Will monitor electrolyte, CPK level, lipid panel. Continue per consultants. Discussed with pharmacist. Discussed with RN. Nutritional evaluation noted. Previously: D5W 100 cc an hour Monitor electrolytes renal parameters TPN and Intralipid ordered Will follow Continue per consultants Dietary consult requested Subjective ROS Limited/Unobtainable: Yes Objective Objective Last 24 Hour Vital Signs Date Time Temp Pulse Resp B/P (MAP) Pulse Ox O2 Delivery O2 Flow Rate FiO2 05/12/20 08:20 112 114/74 05/12/20 08:00 114 05/12/20 08:00 Mechanical Ventilator 05/12/20 08:00 98.1 112 20 114/74 (87) 98 05/12/20 08:00 40 05/12/20 07:00 104 25 40 05/12/20 05:22 131 28 40 05/12/20 04:02 97.5 05/12/20 04:00 130 05/12/20 04:00 Mechanical Ventilator 05/12/20 04:00 40 05/12/20 04:00 98.0 125 30 147/67 (93) 96 05/12/20 03:16 129 30 40 05/12/20 01:15 127 30 40 05/12/20 00:00 128 05/12/20 00:00 40 05/12/20 00:00 Mechanical Ventilator 05/12/20 00:00 98.1 127 28 129/74 (92) 95 05/11/20 23:40 98.7 05/11/20 23:12 130 30 40 05/11/20 21:57 116 20 137/58 99 05/11/20 21:27 117 20 139/62 99 05/11/20 21:15 128 29 40 05/11/20 20:00 114 05/11/20 20:00 117 99 05/11/20 20:00 40 05/11/20 20:00 Mechanical Ventilator 05/11/20 19:33 118 30 40 05/11/20 17:04 119 128/77 05/11/20 16:21 146 150/85 05/11/20 16:13 141 05/11/20 16:00 40 05/11/20 16:00 Mechanical Ventilator 05/11/20 15:54 97.7 140 24 138/74 (95) 95 05/11/20 15:28 118 32 99 Mechanical Ventilator 40 116 29 40 05/11/20 15:07 122 30 135/68 97 05/11/20 14:37 112 31 165/85 95 05/11/20 14:37 165/85 Intake and Output 05/11/20 05/12/20 19:00 07:00 Intake Total 900 ml 550 ml Output Total 900 ml 1100 ml Balance 0 ml -550 ml Free Water 300 ml Tube Feeding 600 ml 550 ml Output Urine Total 900 ml 1100 ml # Bowel Movements 1 Current Medications Medications (Trade) Dose Ordered Sig/Dennis Route PRN Reason Start Time Stop Time Status Last Admin Dose Admin Acetaminophen (Tylenol) 650 mg Q4H PRN GT Mild Pain (Pain Scale 1-3) 05/02/20 08:45 06/01/20 08:44 05/08/20 20:28 Acetaminophen/ Hydrocodone Bitart ([place] 5/325) 1 tab Q4H PRN GT For Pain 05/09/20 16:30 05/16/20 11:59 05/12/20 08:22 Amlodipine Besylate (Norvasc) 2.5 mg BID GT 05/02/20 18:00 06/02/20 08:59 05/12/20 08:20 Chlorhexidine Gluconate (Marlen-Hex 2%) 1 applic DAILY@2000 TOPIC 03/30/20 20:00 06/28/20 19:59 05/11/20 21:28 Docusate Sodium (Colace) 100 mg DAILY ORAL 05/13/20 09:00 06/12/20 08:59 Enoxaparin Sodium (Lovenox) 80 mg EVERY 12 HOURS SUBQ 04/06/20 21:00 07/05/20 20:59 05/12/20 08:23 Famotidine (Pepcid) 20 mg Q12HR PRN GT HEARTBURN 05/08/20 13:15 06/01/20 15:14 Fluconazole (Diflucan) 100 mg DAILY ORAL 05/06/20 09:00 05/13/20 08:59 05/12/20 08:20 Hydralazine HCl (Apresoline) 10 mg Q4H PRN IV For High Blood Pressure 03/30/20 12:15 06/28/20 12:14 05/11/20 14:37 Ipratropium [place] (Atrovent) 500 mcg Q6H PRN HHN Shortness of Breath 05/11/20 16:14 05/16/20 16:13 05/12/20 08:48 Lansoprazole (Prevacid) 30 mg DAILY GT 05/02/20 09:00 06/01/20 08:59 05/12/20 08:19 Lorazepam (Ativan) 1 mg Q6H PRN ORAL For Anxiety 05/09/20 20:45 05/16/20 20:44 05/11/20 21:27 Prednisone (predniSONE) 5 mg DAILY ORAL 05/12/20 09:00 06/05/20 08:59 05/12/20 08:21 Quetiapine Fumarate (SEROqueL) 50 mg EVERY 8 HOURS ORAL 04/29/20 12:00 06/11/20 11:59 05/12/20 05:23 Laboratory Tests 05/12/20 08:45: White Blood Count 11.9H, Red Blood Count 4.04L, Hemoglobin 11.4L, Hematocrit 35.9L, Mean Corpuscular Volume 89, Mean Corpuscular Hemoglobin 28.2, Mean Corpuscular Hemoglobin Concent 31.7L, Red Cell Distribution Width 15.8H, Platelet Count 393, Mean Platelet Volume 6.1L, Neutrophils (%) (Auto) 78.7H, Lymphocytes (%) (Auto) 12.5L, Monocytes (%) (Auto) 6.6, Eosinophils (%) (Auto) 1.2, Basophils (%) (Auto) 1.0, Sodium Level 137, Potassium Level 4.1, Chloride Level 99, Carbon Dioxide Level 30, Anion Gap 9, Blood Urea Nitrogen 14, Creatinine 0.5L, Estimat Glomerular Filtration Rate > 60, Glucose Level 127H, Calcium Level 9.3, Phosphorus Level 3.1, Magnesium Level 2.0, Total Bilirubin 0.5, Aspartate Amino Transf (AST/SGOT) 16, Alanine Aminotransferase (ALT/SGPT) 32, Alkaline Phosphatase 106, C-Reactive Protein, Quantitative 9.1H, Pro-B-Type Natriuretic Peptide 616H, Total Protein 6.8, Albumin 3.0L, Globulin 3.8, Albumin/Globulin Ratio 0.8L Height (Feet): 5 Height (Inches): 10.00 Weight (Pounds): 243 General Appearance: no apparent distress EENT: other Respiratory/Chest: decreased breath sounds Abdomen: distended, other - PEG Rubin Cooper MD May 12, 2020 12:26
--- NOTE | 2020-05-12 12:37 | Cardiology Report ---
APPROVED REPORT EKG Measurement Heart [id number] CT [id number] <Conclusion> Sinus tachycardia Nonspecific ST abnormality Abnormal ECG
--- NOTE | 2020-05-12 12:44 | NUR ---
0725: Received report from previous RN. Pt trach to vent. Pt with eyes closed at this time. Will continue to monitor. 0830: Pt endorses SOB. Respiratory called for breathing treatment. Pt looks flushed and hot to touch. [place] removed and fan facing toward pt. Pt repositioned. Pt with tube feeds infusing at goal. Pt with joseph. Pt endorses abdominal pain. Pain medication administered. 1245: Received called from radiology regarding chest X-ray. YENI Marinelli notified and coming to bedside. Pt in NAD at this time. Pt recently given pain medication for endorsed abdominal pain. Endorses some relief. Will continue to monitor.
--- NOTE | 2020-05-12 13:25 | NUR ---
INSURANCE CLINCALS FAXED TO [employer] T: [phone] #1 F: [phone] AND ALFRED THERMOSCREW OPERATOR:JACQUELINE JAMES T: [phone] F: [phone]
--- NOTE | 2020-05-12 13:41 | NUR ---
RESEARCH COMPLIANCE SPECIALIST NOTES SPOKE WITH LIONEL SEGUNDO FROM THE INSURANCE, SHE IS CURRENTLY LOOKING FOR PLACEMENT. WILL FOLLOW UP.
--- NOTE | 2020-05-12 13:51 | Diagnostic Imaging Report ---
Procedure: XRAY Chest 1v Reason for study: Shortness of breath. Comparison films: 04/30/2020. FINDINGS: Tracheostomy and right PICC line remain in place. There is new pneumomediastinum as well as subcutaneous cutaneous emphysema noted in the right supraclavicular region. Slight increase in diffuse bilateral alveolar densities likely worsening infiltrates and/or edema. Cardiac and mediastinal silhouette are within normal limits. CP angles are sharp. The bony thorax appear unremarkable. IMPRESSION: Slight worsening of bilateral basilar densities, infiltrates and/or edema. New pneumomediastinum and subcutaneous cutaneous air in the right supraclavicular region. Findings called to the patient's nurse and 2 E. 05/12/2020 at 12:35 PM
--- NOTE | 2020-05-12 13:57 | NUR ---
P.T Notes: Pt cleared by RN for P.T evaluation and mobilization. P.T evaluation completed. Pt is alert, O x 4 , pleasant and cooperative and willing to participate in P.T evaluation. Pt presented with generalized weakness, pain on the R shoulder, R knee , dizziness and headache limiting her overall functional mobility performance and tolerance. RN made aware regarding c/o pain. Pt. educated on importance of OOB activities VS bedrest during hospital stay as well proper and safe mobility technique to facilitate ease of mobility transition. MIN A X 1 for bed mobility , transfers and gait/ambulation activities using the FWW. Recommend DC to SNF for short term rehab VS home P.T depending on progress. Thank you for this referral. Addendum: 05/12/20 at 1420 by DELICIA MCLEAN PT PLEASE DISREGARD ABOVE NOTE. WRONG PATIENT!
[2020-05-12] MEDS: LORazepam 1mg tab ORAL PRN (15:36)
[2020-05-12 16:00] VITALS: BP 130/87
--- NOTE | 2020-05-12 16:26 | General Progress Note ---
Subjective ROS Limited/Unobtainable: No Allergies: Coded Allergies: No Known Allergies (Unverified , 02/05/20) Objective Last 24 Hour Vital Signs Date Time Temp Pulse Resp B/P (MAP) Pulse Ox O2 Delivery O2 Flow Rate FiO2 05/12/20 15:36 122 05/12/20 12:00 117 05/12/20 12:00 40 05/12/20 12:00 96.7 104 19 131/87 (102) 97 05/12/20 11:33 98 18 40 05/12/20 08:20 112 114/74 05/12/20 08:00 114 05/12/20 08:00 Mechanical Ventilator 05/12/20 08:00 98.1 112 20 114/74 (87) 98 05/12/20 08:00 40 05/12/20 07:00 104 25 40 05/12/20 05:22 131 28 40 05/12/20 04:02 97.5 05/12/20 04:00 130 05/12/20 04:00 Mechanical Ventilator 05/12/20 04:00 40 05/12/20 04:00 98.0 125 30 147/67 (93) 96 05/12/20 03:16 129 30 40 05/12/20 01:15 127 30 40 05/12/20 00:00 128 05/12/20 00:00 40 05/12/20 00:00 Mechanical Ventilator 05/12/20 00:00 98.1 127 28 129/74 (92) 95 05/11/20 23:40 98.7 05/11/20 23:12 130 30 40 05/11/20 21:57 116 20 137/58 99 05/11/20 21:27 117 20 139/62 99 05/11/20 21:15 128 29 40 05/11/20 20:00 114 05/11/20 20:00 117 99 05/11/20 20:00 40 05/11/20 20:00 Mechanical Ventilator 05/11/20 19:33 118 30 40 05/11/20 17:04 119 128/77 Intake and Output 05/11/20 05/12/20 19:00 07:00 Intake Total 900 ml 550 ml Output Total 900 ml 1100 ml Balance 0 ml -550 ml Free Water 300 ml Tube Feeding 600 ml 550 ml Output Urine Total 900 ml 1100 ml # Bowel Movements 1 Laboratory Tests 05/12/20 08:45: White Blood Count 11.9H, Red Blood Count 4.04L, Hemoglobin 11.4L, Hematocrit 35.9L, Mean Corpuscular Volume 89, Mean Corpuscular Hemoglobin 28.2, Mean Corpuscular Hemoglobin Concent 31.7L, Red Cell Distribution Width 15.8H, Platelet Count 393, Mean Platelet Volume 6.1L, Neutrophils (%) (Auto) 78.7H, Lymphocytes (%) (Auto) 12.5L, Monocytes (%) (Auto) 6.6, Eosinophils (%) (Auto) 1.2, Basophils (%) (Auto) 1.0, Sodium Level 137, Potassium Level 4.1, Chloride Level 99, Carbon Dioxide Level 30, Anion Gap 9, Blood Urea Nitrogen 14, Creatinine 0.5L, Estimat Glomerular Filtration Rate > 60, Glucose Level 127H, Calcium Level 9.3, Phosphorus Level 3.1, Magnesium Level 2.0, Total Bilirubin 0.5, Aspartate Amino Transf (AST/SGOT) 16, Alanine Aminotransferase (ALT/SGPT) 32, Alkaline Phosphatase 106, C-Reactive Protein, Quantitative 9.1H, Pro-B-Type Natriuretic Peptide 616H, Total Protein 6.8, Albumin 3.0L, Globulin 3.8, Albumin/Globulin Ratio 0.8L Height (Feet): 5 Height (Inches): 10.00 Weight (Pounds): 243 General Appearance: no apparent distress EENT: normal ENT inspection Neck: supple Cardiovascular: normal rate Respiratory/Chest: decreased breath sounds Abdomen: hypoactive bowel sounds Extremities: non-tender Assessment/Plan Status: stable, unchanged Assessment/Plan: hep c + but neg RNA GTF reglan 10 mg tolerating TF repeat labs fu LFTS>>>improving pepcid iv will Da Wilson MD May 12, 2020 16:26
--- NOTE | 2020-05-12 19:14 | NUR ---
Report given to PRIYANKA Mitchell. Pt resting quietly at this time. Care continues.
--- NOTE | 2020-05-12 19:15 | NUR ---
NURSE NOTES: Pt report received from Desi Christian RN. pt remains stable/ asymptomatic. pt is alert and oriented times 4, no change in mentation. pt is showing ST on the monitor, doctor is aware. pt is sating 98% O2 on ventilator, no acute signs symptom of resp distress noted. pt bed is low, locked, armed, call light within reach, bed rails up times 3. will follow plan of care.
[2020-05-12 20:00] VITALS: BP 149/82
[2020-05-12] MEDS: Dyna-Hex 2% Top Sol 2oz TOPIC SCH (21:19)
[2020-05-13] VITALS: BP 142/76
[2020-05-13] MEDS: HYDROcodone/Acetamin 5/325 tab GT PRN ×4 (02:20→21:08)
[2020-05-13 04:00] VITALS: BP 144/88
--- NOTE | 2020-05-13 07:10 | NUR ---
NURSE HAND-OFF REPORT: Important Events on Shift:[NA] Patient Status: [stable] Diet: [per doctor order] Pending Orders: [NA] Pending Results/Labs:[na] Pending MD notification:[na] Latest Vital Signs: Temperature 96.3 , Pulse 115 , B/P 144 /88 , Respiratory Rate 26 , O2 SAT 95 , Mechanical Ventilator, O2 Flow Rate . Vital Sign Comment: [stable] EKG Rhythm: Sinus Tachycardia Rhythm change?: N MD Notified?: Y -Dr Emperatriz INTERIANO Response: Order Received& Read Back Latest Hassan Fall Score: 35 Fall Risk: Medium Risk Safety Measures: Call light Within Reach, Bed Alarm Zone 2, Side Rails Side Rails x3, Bed position Low and Locked. Fall Precautions: Yellow Socks Yellow Gown Door Sign Patient Fall Education Report given to [Desi Christian RN].
[2020-05-13 08:00] VITALS: BP 160/86
[2020-05-13] MEDS: Enoxaparin 80mg Inj SUBQ SCH ×2 (08:53→21:09)
[2020-05-13] MEDS ORDERED: Docusate 100mg cap ORAL SCH (09:00)
[2020-05-13] MEDS ORDERED: Docusate 250mg cap ORAL SCH (09:00)
[2020-05-13] MEDS: Docusate 100mg/10ml Liq NG SCH (09:00)
--- NOTE | 2020-05-13 11:01 | NUR ---
INSURANCE CLINCALS FAXED TO [employer] T: [phone] #1 F: [phone] AND ALFRED ARBOR PRESS OPERATOR:JACQUELINE JAMES T: [phone] F: [phone]
--- NOTE | 2020-05-13 11:02 | NUR ---
CASE MANAGEMENT:REVIEW 05/13/20 SI: COVID PNA. RESPIRATORY FAILURE. S/P TRACH/GTUBE 98.1 109 26 160/86 97% ON VENT W/40% FIO2 NO LABS TODAY IS: SEROQUEL GT Q8HRS PREDNISONE GT QD PEPCID GT Q12 NORVASC GT BID PREVACID GT QD LOVENOX SQ Q12 : SDU STATUS DCP: INSURANCE IS SEEKING PLACEMENT FOR THIS PATIENT
--- NOTE | 2020-05-13 11:07 | Pulmonology Progress Note ---
Subjective ROS Limited/Unobtainable: No Interval Events: S/p tracheostomy 04/25/20 Constitutional: Reports: fatigue, other - + trach/vent, no pressros ; Denies: fever HEENT: Repors: no symptoms Respiratory: Reports: dry cough, shortness of breath Cardiovascular: Reports: no symptoms Gastrointestinal/Abdominal: Denies: nausea, vomiting, diarrhea Psychiatric: Reports: other - NA Skin: Denies: rash Musculoskeletal: Denies: pain Allergies: Coded Allergies: No Known Allergies (Unverified , 02/05/20) Objective Last 24 Hour Vital Signs Date Time Temp Pulse Resp B/P (MAP) Pulse Ox O2 Delivery O2 Flow Rate FiO2 05/13/20 08:54 109 160/86 05/13/20 08:00 Mechanical Ventilator 05/13/20 08:00 40 05/13/20 08:00 98.1 109 26 160/86 (110) 97 05/13/20 08:00 107 05/13/20 07:40 113 29 40 05/13/20 04:00 Mechanical Ventilator 05/13/20 04:00 96.3 115 26 144/88 (106) 95 05/13/20 04:00 111 05/13/20 04:00 40 05/13/20 03:05 115 29 40 05/13/20 02:50 97.5 05/13/20 00:00 96.6 97 25 142/76 (98) 98 05/13/20 00:00 Mechanical Ventilator 05/13/20 00:00 40 05/13/20 00:00 108 05/12/20 23:00 112 26 40 05/12/20 22:10 118 22 98 05/12/20 21:52 97.5 05/12/20 20:00 40 05/12/20 20:00 Mechanical Ventilator 05/12/20 20:00 97.9 109 24 149/82 (104) 98 05/12/20 20:00 106 05/12/20 19:18 102 24 40 05/12/20 18:14 117 131/78 05/12/20 16:00 129 05/12/20 16:00 Mechanical Ventilator 05/12/20 16:00 40 05/12/20 16:00 96.6 106 20 130/87 (101) 96 05/12/20 15:36 122 3/12/21 15:16 101 29 40 05/12/20 12:00 117 05/12/20 12:00 Mechanical Ventilator 05/12/20 12:00 40 05/12/20 12:00 96.7 104 19 131/87 (102) 97 05/12/20 11:33 98 18 40 Intake and Output 05/12/20 05/13/20 19:00 07:00 Intake Total 600 ml 500 ml Output Total 300 ml 200 ml Balance 300 ml 300 ml Tube Feeding 600 ml 500 ml Output Urine Total 300 ml 200 ml # Bowel Movements 2 3 General Appearance: WD/WN, no acute distress HEENT: normocephalic, atraumatic, status post trach Respiratory: chest wall non-tender Cardiovascular: normal rate, regular rhythm Abdomen: normal bowel sounds, soft, non tender, other - obese Current Medications Medications (Trade) Dose Ordered Sig/Dennis Route PRN Reason Start Time Stop Time Status Last Admin Dose Admin Acetaminophen (Tylenol) 650 mg Q4H PRN GT Mild Pain (Pain Scale 1-3) 05/02/20 08:45 06/01/20 08:44 05/08/20 20:28 Acetaminophen/ Hydrocodone Bitart ([place] 5/325) 1 tab Q4H PRN GT For Pain 05/09/20 16:30 05/16/20 11:59 05/13/20 08:55 Amlodipine Besylate (Norvasc) 2.5 mg BID GT 05/02/20 18:00 06/02/20 08:59 05/13/20 08:54 Chlorhexidine Gluconate (Marlen-Hex 2%) 1 applic DAILY@1999 TOPIC 03/30/20 20:00 06/28/20 19:59 05/12/20 21:19 Docusate Sodium (Colace) 100 mg Q24HRS NG 05/13/20 09:00 06/12/20 08:59 05/13/20 09:00 Enoxaparin Sodium (Lovenox) 80 mg EVERY 12 HOURS SUBQ 04/06/20 21:00 07/05/20 20:59 05/13/20 08:53 Famotidine (Pepcid) 20 mg Q12HR PRN GT HEARTBURN 05/08/20 13:15 06/01/20 15:14 05/13/20 08:52 Hydralazine HCl (Apresoline) 10 mg Q4H PRN IV For High Blood Pressure 03/30/20 12:15 06/28/20 12:14 05/11/20 14:37 Ipratropium [place] (Atrovent) 500 mcg Q6H PRN HHN Shortness of Breath 05/11/20 16:14 05/16/20 16:13 05/12/20 22:10 Lansoprazole (Prevacid) 30 mg DAILY GT 05/02/20 09:00 06/01/20 08:59 05/13/20 08:52 Lorazepam (Ativan) 1 mg Q6H PRN GT For Anxiety 05/13/20 08:45 05/16/20 20:44 Prednisone (predniSONE) 5 mg DAILY GT 05/13/20 09:00 06/05/20 08:59 05/13/20 08:54 Quetiapine Fumarate (SEROqueL) 50 mg EVERY 8 HOURS GT 05/13/20 14:00 06/11/20 11:59 Assessment/Plan Assessment/Plan 1.COVID-19 pneumonia. - Completed specific therapies - off solumedrol 20 Iv q 12 -> now on prednisone 5 mg PO QD - will add bactrim for PJP prophylaxis 2. DVT ppx - on lovenox 3. Hypertension - no longer on meds - Not requiring pressors 4. Leukocytosis; - ID following - Off abx - Candidemia documented 03/18/20 5. Elevated LFT - positive Hep C; treated in the past with IF 6. Respiratory failure -Intubated 03/28/20; s/p tracheostomy 04/25/20 -Gradually weaned off sedation IOV 7. Left UE edema - On full dose Lovenox - restart lasix? Will wean down FiO2 as tolerated CXR shows bilateral interstitial changes? fibrosis? S/p PEG Off IV fluids Dc planning to subacute -> ordered community case manager consult for placement On seroquel 50 mg PO TID; On Ativan and [place] DC pending placement The care of this patient was discussed with my supervising physician Time spent for this encounter was approximately 31 minutes Edilson Marinelli May 13, 2020 11:07
--- NOTE | 2020-05-13 11:30 | Surgery Progress Note ---
Surgery Progress Note Subjective Procedure Performed tracheostomy Additional Comments able to hold a full conversation today states is well left arm weak no n/v/f/c respiratory improved Objective Last 24 Hour Vital Signs Date Time Temp Pulse Resp B/P (MAP) Pulse Ox O2 Delivery O2 Flow Rate FiO2 05/13/20 08:54 109 160/86 05/13/20 08:00 Mechanical Ventilator 05/13/20 08:00 40 05/13/20 08:00 98.1 109 26 160/86 (110) 97 05/13/20 08:00 107 05/13/20 07:40 113 29 40 05/13/20 04:00 Mechanical Ventilator 05/13/20 04:00 96.3 115 26 144/88 (106) 95 05/13/20 04:00 111 05/13/20 04:00 40 05/13/20 03:05 115 29 40 05/13/20 02:50 97.5 05/13/20 00:00 96.6 97 25 142/76 (98) 98 05/13/20 00:00 Mechanical Ventilator 05/13/20 00:00 40 05/13/20 00:00 108 05/12/20 23:00 112 26 40 05/12/20 22:10 118 22 98 05/12/20 21:52 97.5 05/12/20 20:00 40 05/12/20 20:00 Mechanical Ventilator 05/12/20 20:00 97.9 109 24 149/82 (104) 98 05/12/20 20:00 106 05/12/20 19:18 102 24 40 05/12/20 18:14 117 131/78 05/12/20 16:00 129 05/12/20 16:00 Mechanical Ventilator 05/12/20 16:00 40 05/12/20 16:00 96.6 106 20 130/87 (101) 96 05/12/20 15:36 122 05/12/20 15:16 101 29 40 05/12/20 12:00 117 05/12/20 12:00 Mechanical Ventilator 05/12/20 12:00 40 05/12/20 12:00 96.7 104 19 131/87 (102) 97 05/12/20 11:33 98 18 40 I&O Intake and Output 05/12/20 05/13/20 19:00 07:00 Intake Total 600 ml 500 ml Output Total 300 ml 200 ml Balance 300 ml 300 ml Tube Feeding 600 ml 500 ml Output Urine Total 300 ml 200 ml # Bowel Movements 2 3 Dressing: dry Wound: clean Cardiovascular: RSR Respiratory: clear Abdomen: soft, non-tender, present bowel sounds, non-distended Extremities: no edema, no tenderness, no cyanosis Plan Problems: (1) Pneumonia (2) Staphylococcus aureus bacteremia (3) COVID-19 virus infection (4) Chest pain (5) Hypertension (6) Dehydration (7) Electrolyte imbalance (8) DMII (diabetes mellitus, type 2) (9) Protein malnutrition (10) Respiratory insufficiency Assessment & Plan: 64-year-old male with respiratory insufficiency intubated in an intensive care unit. Patient has been unable to safely wean off ventilatory support. Surgery called to evaluate for tracheostomy. After careful evaluation patient is a candidate for tracheostomy. In the meantime will obtain consent. If consent obtained will proceed with scheduling. Thank you for your participation's care will follow recommendations improving trach okay agitated weaning sedation no n/v cont weaning transition to oral meds via g tube get off drips improving downgraded weaning well more alert and awake responsive will need placement trach collar consideration pending sub acute placement okay for placement cont trach care leave sutures in place as dissolvable Booker Rausch May 13, 2020 11:30
[2020-05-13 11:58] VITALS: BP 160/89
[2020-05-13] MEDS: LORazepam 1mg tab GT PRN ×2 (13:06→21:08)
--- NOTE | 2020-05-13 14:08 | Nephrology Progress Note ---
Assessment/Plan Problem List: (1) Dehydration (2) Electrolyte imbalance (3) COVID-19 virus infection (4) Pneumonia (5) DMII (diabetes mellitus, type 2) (6) Protein malnutrition Assessment Azotemia, hypernatremia Hypoalbuminemia Staff Otilia bacteremia COVID-19 isolation, pneumonia, bilateral infiltrate Hypertension Diabetes mellitus History of smoking Plan May 13: No labs drawn today. Stable from renal standpoint of view. Continue per consultants. May 12: Labs reviewed. Renal parameters stable. Status quo. Continue per consultants. May 11: No labs drawn today. Will check can panel tomorrow. Medication list reviewed. Patient remains full code. Continue per consultants. May 10: Labs reviewed. Serum sodium higher. Renal parameters and electrolytes stable. Medication list reviewed. Continue per consultants. May 09: Labs reviewed. Serum sodium 135. Continue to monitor electrolytes. Medication list reviewed. Continue per current management. May 08: Labs reviewed. Renal parameters stable. Medication list reviewed. Continue per consultants. May 07: No labs drawn today reviewed. Clinically stable. Medication list reviewed. Will check lab tomorrow. Continue per consultants. May 06: Labs reviewed. Renal parameters stable. Continue per consultants. May 05: Labs reviewed. Renal parameters stable. Patient is due to be transferred to SCU. Continue per consultants. Medication list reviewed. May 04: Labs reviewed. Renal parameters stable. Overall status unchanged. Remains full code. Fed through GT tube. Trach to vent. FiO2 45%. Continue per consultants. May 03: No CHEM panel drawn today. Patient clinically stable. Has trach to vent and PEG. Will check lab tomorrow. May 02: Labs reviewed. Status quo. Patient is trached and vented. Also has PEG. Is full code. Stable from renal standpoint of view. May 01: Labs reviewed. Status quo. Patient has trach connected to vent. Has PEG. He is full code. FiO2 50%. April 30: Status quo. Labs reviewed. Renal parameters stable. Medication list reviewed. April 29: Status quo. Received PEG yesterday. Has trach connected to vent. FiO2 40%. Labs reviewed. Medication list reviewed. Continue same April 28: Status quo. Labs reviewed. Renal parameters stable. Patient n.p.o. due for PEG insertion. IV changed to D5 normal saline. Continue per consultants. April 27: Status quo. Labs reviewed. Medication list reviewed. Stable from renal standpoint of view. Abnormal electrolytes addressed. April 26: Patient is now trached and connected to vent. FiO2 70%. Labs reviewed. Renal parameters stable. Medication list reviewed. Continue per consultants. April 25: Status quo. Full code. FiO2 55%. No labs drawn today. Continue to monitor electrolytes and renal parameters. Continue per consultants. April 24: Status quo. Full code. Intubated on ventilator. FiO2 65%. Labs reviewed. Renal parameters and electrolytes stable. April 23: Status unchanged. Full code. Intubated on ventilator. FiO2 75%. Labs reviewed. Renal parameters stable. Continue per consultants. April 22: Labs reviewed. Patient remains intubated on ventilator and full code. FiO2 90%. Day 77 hospitalization. Not much to add from renal standpoint of view April 21: No CHEM panel drawn today. FiO2 60%. Patient full code. Continue per consultants. April 20: Labs reviewed. Renal parameters stable. Patient remains full code. Intubated on ventilator with FiO2 currently at 70%. Continue per consultants. April 19: No labs drawn today. Remains full code on FiO2 of 100%. Continue per consultants. April 18: Status quo. Labs reviewed. Renal parameters stable. April 17: Status quo. Intubated on ventilator. Full code. Labs reviewed. Electrolytes and renal parameters stable. Continue per consultants. April 16: Girlfriend in the room. Patient awake. Intubated. Full code. Labs reviewed. Abnormal electrolyte addressed. Continue per consultants. April 15: Labs reviewed. Electrolytes and renal parameters stable. Patient full code. Continues to be intubated on ventilator. April 14: Status quo. Labs reviewed. Remains intubated on ventilator. Full code. Continue per consultants. April 13: Status quo. Labs reviewed. Renal parameters electrolytes stable. Continue per current treatment plan. April 12: On higher FiO2. Will resume Lasix daily. Continue to monitor electrolytes and renal parameters. Per consultants. April 11: FiO2 went up to 85%. Renal parameters and electrolytes reasonably well-maintained. Will monitor serum potassium. Will give IV Lasix. April 10: Status quo. Labs reviewed. Remains intubated on ventilator with FiO2 of 65%. Remains full code. Stable from renal standpoint to view. Repeat vitamin D level on April 08 pending April 09: Status quo. Labs reviewed. Stable from renal standpoint of view. Continue per consultants. April 08: Discussed with RN. Labs reviewed. Clinically improving. Requires lower PEEP. Continue per pulmonary. Continue to monitor renal parameters. April 07: Remains full code and on ventilator. Labs reviewed. Renal parameters and electrolytes stable. Continue per consultants. Blood pressure marginally improved. April 06: Full code. On ventilator. Blood pressure 80-90 systolic. IV Lasix discontinued. Free water through tube feeding ordered. Continue to monitor electrolytes and serum sodium. Down on fentanyl as possible. Discussed with RN Kevin. Clonidine patch discontinued. April 05: Status quo. Remains full code. Remains intubated. Labs reviewed. Renal parameters stable. Serum sodium 150 unchanged. Continue per consultants. April 04: Remains intubated and on ventilator. Remains full code. Labs r eviewed. Serum sodium 150 unchanged. Renal parameters stable. Continue per ID and pulmonary. April 03: Intubated. On ventilator. Full code. Labs reviewed. Serum sodium 150 unchanged. Continue to monitor renal parameters. Continue per pulmonary a nd ID. April 02: Full code. On ventilator. Discussed with RN. Serum sodium slightly higher. Will cut down on IV Lasix. Continue per consultants. Continue to monitor renal parameters and electrolytes. April 01: Full code. Remains on ventilator. Labs reviewed. Stable from renal standpoint of view. Continue per consultants. March 31: Full code . Remains intubated on ventilator. Labs reviewed. Patient appears toxic. Discussed with RN. Maintenance IV discontinued. Medication list reviewed. Blood pressure medication stopped due to low blood pressure. Levemir insulin stopped. Continue monitor blood sugar and sliding scale insulin. March 30: Full code. On ventilator. Labs reviewed. Clonidine patch dose increased. Lasix increased. 3% saline 1 time ordered. Continue to monitor electrolytes and renal parameters. March 29: Remains full code. On mechanical ventilation. On tube feeding. Will DC TPN. Will start on maintenance IV fluid. Continue to monitor renal parameters. March 28: On BiPAP. Full code. On TPN. Labs reviewed. Discussed with pharmacy. Continue as is. Watch serum potassium. March 27: Remains on BiPAP. No chemistry panel done today. Full code. On TPN. Will check lab tomorrow. March 26: Remains on BiPAP. Remains on TPN. Labs reviewed. Electrolytes and chemistries within normal limits. Continue as is. March 25: Remains on TPN. Labs reviewed. Discussed with pharmacy. Change IV Protonix to p.o. Continue 3% saline infusion with Lasix. Patient full code. March 24: Continue to be on TPN. Labs are reviewed. Aim to collect electrolytes. Discussed with pharmacy. Continue current consultants. March 23: Continues to be on TPN. Labs reviewed. Electrolytes and chemistries all acceptable. Discussed with pharmacy. Continue current management. March 22: On TPN. Labs reviewed. Low sodium noted. 3% saline to be continued. Continue to monitor electrolytes. Discussed with pharmacy. March 21: On TPN. Labs reviewed. Continue 3% saline and Lasix for mild hyponatremia. Continue TPN as these. Discussed with pharmacy. March 20: Remains on TPN. Labs reviewed. Serum sodium higher on IV Lasix and 3% saline infusion. Continue TPN as is. Continue to monitor renal parameters and electrolytes. Discussed with Dr. Mata March 19: Remains on TPN. Labs reviewed. Serum sodium 128. Will give 3% saline with IV Lasix. Continue to monitor electrolytes. No change in TPN composition. Discussed with pharmacy. March 18: Remains on TPN. Labs reviewed. Discussed with pharmacist. Will give 3 doses of IV Lasix 20 mg every 8 hours. Continue to monitor serum sodium electrolytes uric acid. White blood cells down. Continue per consultants. March 17: On TPN. Labs reviewed. Discussed with pharmacist. Sodium content increase. Continue to monitor CMP. Patient continues to have leukocytosis. March 16: On TPN. Labs reviewed. Discussed with pharmacist. Appropriate changes made. Continue to monitor electrolytes. March 15: Remains on TPN. Labs reviewed. Discussed with pharmacist. Continue per current management. March 14: Remains on TPN. Labs reviewed, stable. Vitamin D level low, replacement ordered. Continue to monitor electrolytes and renal parameters. March 13: Patient remains on TPN. Discussed with pharmacist. TPN's sodium content adjusted. Labs reviewed. Continue to monitor electrolytes. Blood pressure remains stable. Continue per consultants. March 12: Patient on TPN. Labs reviewed. CPK remains elevated. Abnormal electrolytes and high blood sugar discussed with pharmacist and TPN adjusted. Continue to monitor labs. Oral Protonix added. Ibuprofen discontinued. Can continue to monitor electrolytes and chemistries. Levemir for high blood sugar added. March 11: Patient on TPN. Labs as of 11:15 AM is still pending. Continue per current treatment plan. Will check labs and adjust TPN as needed. Continue per consultants. March 10: Patient on TPN. Labs reviewed. Electrolytes overall stable. CPK is elevated. Will monitor electrolyte, CPK level, lipid panel. Continue per consultants. Discussed with pharmacist. Discussed with RN. Nutritional eval uation noted. Previously: D5W 100 cc an hour Monitor electrolytes renal parameters TPN and Intralipid ordered Will follow Continue per consultants Dietary consult requested Subjective ROS Limited/Unobtainable: Yes Objective Objective Last 24 Hour Vital Signs Date Time Temp Pulse Resp B/P (MAP) Pulse Ox O2 Delivery O2 Flow Rate FiO2 05/13/20 12:00 40 05/13/20 11:58 97.1 107 26 160/89 (112) 97 05/13/20 11:51 112 05/13/20 08:54 109 160/86 05/13/20 08:00 Mechanical Ventilator 05/13/20 08:00 40 05/13/20 08:00 98.1 109 26 160/86 (110) 97 05/13/20 08:00 107 05/13/20 07:40 113 29 40 05/13/20 04:00 Mechanical Ventilator 05/13/20 04:00 96.3 115 26 144/88 (106) 95 05/13/20 04:00 111 05/13/20 04:00 40 05/13/20 03:05 115 29 40 05/13/20 02:50 97.5 05/13/20 00:00 96.6 97 25 142/76 (98) 98 05/13/20 00:00 Mechanical Ventilator 05/13/20 00:00 40 05/13/20 00:00 108 05/12/20 23:00 112 26 40 05/12/20 22:10 118 22 98 05/12/20 21:52 97.5 05/12/20 20:00 40 05/12/20 20:00 Mechanical Ventilator 05/12/20 20:00 97.9 109 24 149/82 (104) 98 05/12/20 20:00 106 05/12/20 19:18 102 24 40 05/12/20 18:14 117 131/78 05/12/20 16:00 129 05/12/20 16:00 Mechanical Ventilator 05/12/20 16:00 40 05/12/20 16:00 96.6 106 20 130/87 (101) 96 05/12/20 15:36 122 05/12/20 15:16 101 29 40 Intake and Output 05/12/20 05/13/20 19:00 07:00 Intake Total 600 ml 500 ml Output Total 300 ml 200 ml Balance 300 ml 300 ml Tube Feeding 600 ml 500 ml Output Urine Total 300 ml 200 ml # Bowel Movements 2 3 Current Medications Medications (Trade) Dose Ordered Sig/Dennis Route PRN Reason Start Time Stop Time Status Last Admin Dose Admin Acetaminophen (Tylenol) 650 mg Q4H PRN GT Mild Pain (Pain Scale 1-3) 05/02/20 08:45 06/01/20 08:44 05/08/20 20:28 Acetaminophen/ Hydrocodone Bitart ([place] 5/325) 1 tab Q4H PRN GT For Pain 05/09/20 16:30 05/16/20 11:59 05/13/20 08:55 Amlodipine Besylate (Norvasc) 2.5 mg BID GT 05/02/20 18:00 06/02/20 08:59 05/13/20 08:54 Chlorhexidine Gluconate (Marlen-Hex 2%) 1 applic DAILY@2000 TOPIC 03/30/20 20:00 06/28/20 19:59 05/12/20 21:19 Docusate Sodium (Colace) 100 mg Q24HRS NG 05/13/20 09:00 06/12/20 08:59 05/13/20 09:00 Enoxaparin Sodium (Lovenox) 80 mg EVERY 12 HOURS SUBQ 04/06/20 21:00 07/05/20 20:59 05/13/20 08:53 Famotidine (Pepcid) 20 mg Q12HR PRN GT HEARTBURN 05/08/20 13:15 06/01/20 15:14 05/13/20 08:52 Hydralazine HCl (Apresoline) 10 mg Q4H PRN IV For High Blood Pressure 03/30/20 12:15 06/28/20 12:14 05/11/20 14:37 Ipratropium [place] (Atrovent) 500 mcg Q6H PRN HHN Shortness of Breath 05/11/20 16:14 05/16/20 16:13 05/12/20 22:10 Lansoprazole (Prevacid) 30 mg DAILY GT 05/02/20 09:00 06/01/20 08:59 05/13/20 08:52 Lorazepam (Ativan) 1 mg Q6H PRN GT For Anxiety 05/13/20 08:45 05/16/20 20:44 05/13/20 13:06 Prednisone (predniSONE) 5 mg DAILY GT 05/13/20 09:00 06/05/20 08:59 05/13/20 08:54 Quetiapine Fumarate (SEROqueL) 50 mg EVERY 8 HOURS GT 05/13/20 14:00 06/11/20 11:59 05/13/20 13:58 Height (Feet): 5 Height (Inches): 10.00 Weight (Pounds): 243 General Appearance: no apparent distress EENT: other - Trach to vent Cardiovascular: tachycardia Respiratory/Chest: decreased breath sounds Abdomen: distended Neurologic: other - Awake and responsive Rubin Cooper MD May 13, 2020 14:08
[2020-05-13 16:00] VITALS: BP 135/70
--- NOTE | 2020-05-13 16:47 | Infectious Diseases Prog Note ---
Assessment/Plan Assessment/Plan ASSESSMENT AND PLAN: 1. hx staph aureus bacteremia/mssa - s/p tx covid-19 +, hypoxia, sob, chest x-ray worse, ? PE, ? HCAP/aspiration pna trach/vent ? fungal uti, low grade fevers diarrhea - c.diff. negative pneumomediastinum, mild leukocytosis - ceftriaxone and flagyl - reculture patient - picc line changed - s/p bactrim for pneumocystis prophylaxis - s/p tx for mssa bacteremia and ? endocarditis - monitor hypoxia, labs and chest x-ray - surveillance blood cultures negative 2. covid-19 isolation removed - covid-19 recovered 3. Hypertension history. Blood pressure treatment primary care team. 4. Elevated blood sugars. Blood sugar treatment per primary care team. 5. No known drug allergies. 6. Social history is positive for smoking. 7. Family history is noncontributory. 8. MAR was noted. 9. Case was discussed with RN. 10. Continue treatment per primary consultants. Subjective Constitutional: Reports: other - + trach and vent ; Denies: fever HEENT: Reports: congestion Respiratory: Reports: shortness of breath Cardiovascular: Denies: chest pain Gastrointestinal/Abdominal: Denies: nausea, vomiting, diarrhea Genitourinary: Reports: other - + joseph Neurologic: Reports: other - alert Psychiatric: Reports: other - NA Skin: Denies: rash Hematologic: Denies: bleeding Musculoskeletal: Denies: pain Allergies: Coded Allergies: No Known Allergies (Unverified , 02/05/20) Objective Last 24 Hour Vital Signs Date Time Temp Pulse Resp B/P (MAP) Pulse Ox O2 Delivery O2 Flow Rate FiO2 05/13/20 12:00 40 05/13/20 11:58 97.1 107 26 160/89 (112) 97 05/13/20 11:51 112 05/13/20 08:54 109 160/86 05/13/20 08:00 Mechanical Ventilator 05/13/20 08:00 40 05/13/20 08:00 98.1 109 26 160/86 (110) 97 05/13/20 08:00 107 05/13/20 07:40 113 29 40 05/13/20 04:00 Mechanical Ventilator 05/13/20 04:00 96.3 115 26 144/88 (106) 95 05/13/20 04:00 111 05/13/20 04:00 40 05/13/20 03:05 115 29 40 05/13/20 02:50 97.5 05/13/20 00:00 96.6 97 25 142/76 (98) 98 05/13/20 00:00 Mechanical Ventilator 05/13/20 00:00 40 05/13/20 00:00 108 05/12/20 23:00 112 26 40 05/12/20 22:10 118 22 98 05/12/20 21:52 97.5 05/12/20 20:00 40 05/12/20 20:00 Mechanical Ventilator 05/12/20 20:00 97.9 109 24 149/82 (104) 98 05/12/20 20:00 106 05/12/20 19:18 102 24 40 05/12/20 18:14 117 131/78 Height (Feet): 5 Height (Inches): 10.00 Weight (Pounds): 243 General Appearance: no acute distress HEENT: normocephalic, atraumatic, anicteric, mucous membranes moist Respiratory/Chest: crackles/rales, rhonchi - bilaterally, rhonchi - left Cardiovascular: normal rate, regular rhythm, no gallop/murmur, no JVD Abdomen: normal bowel sounds, soft, non tender, no organomegaly, non distended Genitourinary: other - + joseph Extremities: no cyanosis, no clubbing Skin: no rash 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 The infiltrates are typical for Covid 19. No evidence of pulmonary embolus. CT abdomen and pelvis: IMPRESSION: 1. Scattered hepatic hypodense lesions, too small to characterize on this examination without intravenous contrast. 2. Colonic diverticulosis without evidence of acute diverticulitis. 3. Scattered enlarged mesenteric lymph nodes, presumably reactive. teral pneumonia. The infiltrates are typical for Covid 19. No evidence of pulmonary embolus. Chest x-ray - 12/19/19 - Indication: Shortness of breath Technique: One view of the chest Comparison: 02/17/2020 Findings: Interim worsening of bilateral infiltrates, particularly on the right. The heart is borderline enlarged. The pleural spaces are clear. Left arm PICC is again demonstrated Impression: Worsening bilateral infiltrates over one day, likely pneumonia CT chest - 02/19/20 - IMPRESSION: Increased extensive patchy ground-glass opacities and densities throughout the lungs, suggestive of Covid 19 infection. Chest x-ray 02/23/20 - Procedure: XRAY Chest 1v As Indication: Reason For Exam: INFECT Technique: One view of the chest Comparison: 02/20/2020 Findings: Allowing for differences in exposure technique, bilateral mid and lower lung infiltrates are probably unchanged. The heart size is normal. The pleural spaces are clear. Impression: Unchanged, over 4 days, findings as above. Chest x-ray - 02/25/20 - FINDINGS: Lungs: Interval slightly worsening bilateral airspace disease. Pleural space: Unremarkable. No pneumothorax. Heart: Unremarkable. No cardiomegaly. Mediastinum: Unremarkable. Bones/joints: Unremarkable. IMPRESSION: Interval slightly worsening bilateral airspace disease. Chest x-ray - 03/02/20 - Procedure: XRAY Chest 1v Indication: Shortness of breath Technique: One view of the chest Comparison: 02/25/2020 Findings: Bilateral interstitial and airspace infiltrates are unchanged. The heart size is normal. Left arm PICC is again demonstrated Impression: Unchanged, over one day, findings as above. Chest x-ray - 03/06/20 - Procedure: XRAY Chest 1v Indication: Shortness of breath Technique: One view of the chest Comparison: 03/02/2020 Findings: Bilateral infiltrates are unchanged. Normal heart size. Pleural spaces are clear Chest x-ray - 03/12/10 - Impression: COMPARISON: Chest radiograph March 06, 2020. FINDINGS/IMPRESSION: Improving basilar infiltrates. Follow chest radiograph recommended. The upper lung finley are clear. No pneumothorax. Stable cardiomegaly. Stable left upper extremity PICC line. anged, over 4 days, findings as above. Chest x-ray - 03/17/20 - Procedure: XRAY Chest 1v Indication: Shortness of breath Technique: One view of the chest Comparison: 03/12/2020 Findings: Left arm PICC is again demonstrated. Infiltrates are unchanged. The heart size is upper limits of normal. Impression: Unchanged, over 5 days, findings as above. Abdominal US - IMPRESSION: 1. Gallbladder is normal. 2. Hepatic steatosis. 3. 1.7 cm cyst right kidney. Impression. Chest x-ray - Procedure: XRAY Chest 1v Indication: Shortness of breath Technique: One view of the chest Comparison: 03/17/2020 Findings: Bilateral right greater than left infiltrates again demonstrated. The heart size is normal. There is a left arm PICC in good position. Impression: Unchanged, over 5 days, findings as above. Chest x-ray - 03/29/20 - Procedure: XRAY Chest 1v Indication: Cough Technique: One view of the chest Comparison: 03/28/2020 Findings: Bilateral infiltrates are unchanged or slightly worse, allowing for differences in exposure technique. The pleural spaces are clear. The heart size is normal. Stable satisfactory position of endotracheal tube, left arm PICC. Orogastric tube has retracted somewhat the position remains satisfactory. Impression: Stable to slightly worse bilateral infiltrates. 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 Interim advancement of orogastric tube as well. Bilateral infiltrates are unchanged. Left arm PICC remains Impression: Improved and now satisfactory tube positions as described. ICU nurse Maeve notified at the time of interpretation Chest x-ray - 04/02/20 - COMPARISON: Chest x-rays dated 03/31/20 and 03/12/20. FINDINGS: Lungs: No significant change in bilateral prominent interstitial markings. The lungs are otherwise clear without focal consolidation. Pleural space: Unremarkable. The costophrenic angles are sharp. No visible pneumothorax. Heart: Unremarkable. No cardiomegaly. Mediastinum: Unremarkable. Bones/joints: Unremarkable. Tubes, lines and devices: Endotracheal tube tip 6.5 cm above the sunny. NG tube tip in the distal stomach. Telemetry leads overlie the thorax. IMPRESSION: No significant change in bilateral prominent interstitial markings. Procedure: XRAY Chest 1v Procedure: XRAY Chest 1v Reason for study: Shortness of breath 04/06/20 - Comparison films: 04/02/2020. FINDINGS: Endotracheal tube and NG tube remain in place. There is worsening of right basilar infiltrates. Some haziness in left lung base unchanged. Cardiac and mediastinal silhouette are within normal limits. CP angles are sharp. The bony thorax appear unremarkable. IMPRESSION: Worsening of right basilar infiltrate. Chest x-ray - 04/09/20 - Procedure: XRAY Chest 1v FILM CXR 1 VIEW INDICATION: Infection COMPARISON: April 05, 2020 FINDINGS: Single frontal view demonstrates a normal cardiomediastinal silhouette. Endotracheal tube in place with tip above the sunny. Elevation of the right hemidiaphragm. Interstitial prominence with bilateral lower lobe infiltrates. Lung bases appear worse from the prior exam. Small right effusion. Right-sided PICC line with tip in the superior vena cava. Enteric tube in place. IMPRESSION: Interstitial prominence and bilateral lower lobe pneumonia with worsening appearance from the prior study. Chest x-ray - 04/12/20 - Procedure: XRAY Chest 1v Indication: Shortness of breath Technique: One view of the chest Comparison: 04/09/2020 Findings: Stable satisfactory tube and line positions. Bilateral infiltrates have worsened slightly since prior study. The heart size is normal. Impression: Worsening bilateral infiltrates, over 3 days Chest x-ray - 04/15/20 - COMPARISON: 02/11/21. FINDINGS: Lungs: There is been no significant change in mild to moderate patchy diffuse bilateral alveolar infiltrates which are most prominent in the lung bases. Pleural space: Unremarkable. No pneumothorax. Heart: Unremarkable. No cardiomegaly. Mediastinum: Unremarkable. Bones/joints: Unremarkable. Tubes, lines and devices: There is an endotracheal tube, right-sided PICC line and NG tube in good position. IMPRESSION: There is been no significant change in mild to moderate patchy diffuse bilateral alveolar infiltrates which are most prominent in the lung bases. Chest x-ray - 04/18/20 - Procedure: XRAY Chest 1v Indication: Cough Technique: One view of the chest Comparison: 04/15/2020 Findings: Less optimal inspiration currently than previously. Stable satisfactory positions of endotracheal and orogastric tubes and right arm PICC. Bilateral infiltrates are again demonstrated, unchanged. Impression: Unchanged, over 3 days, findings as above. Chest x-ray - 04/21/20 - Procedure: XRAY Chest 1v Indication: Dyspnea Technique: One view of the chest Comparison: 04/18/2020 Findings: Stable tube and line positions. Bilateral infiltrates are unchanged Impression: Unchanged, over one day, findings as above. Procedure: XRAY Chest 1v Procedure: XRAY Chest 1v Reason for study: Reason For Exam: SOB Chest x-ray - 04/25/20 - Comparison films: 04/21/2020. FINDINGS: Endotracheal tube, NG tube and right PICC line remain in place. Vascularity is normal. Bilateral infiltrates are unchanged. Cardiac and mediastinal silhouette are within normal limits. CP angles are sharp. The bony thorax appear unremarkable. IMPRESSION: NO SIGNIFICANT CHANGE COMPARED TO PREVIOUS EXAM. Chest x-rasy - 04/30/20 - FINDINGS: Lungs: Bilateral patchy pulmonary opacities concerning for pneumonia, not significantly changed compared to the prior chest x-ray. Pleural space: Unremarkable. The costophrenic angles are sharp. No visible pneumothorax. Heart: Unremarkable. No cardiomegaly. Mediastinum: Unremarkable. Bones/joints: Unremarkable. Tubes, lines and devices: Tracheostomy tube in place, with expected positioning. Telemetry leads overlie the thorax. Right arm PICC with catheter tip in the SVC region. IMPRESSION: Bilateral patchy pulmonary opacities concerning for pneumonia, not significantly changed compared to the prior chest x-ray. Chest x-ray - 05/12/20 - Procedure: XRAY Chest 1v Procedure: XRAY Chest 1v Reason for study: Shortness of breath. Comparison films: 04/30/2020. FINDINGS: Tracheostomy and right PICC line remain in place. There is new pneumomediastinum as well as subcutaneous cutaneous emphysema noted in the right supraclavicular region. Slight increase in diffuse bilateral alveolar densities likely worsening infiltrates and/or edema. Cardiac and mediastinal silhouette are within normal limits. CP angles are sharp. The bony thorax appear unremarkable. IMPRESSION: Slight worsening of bilateral basilar densities, infiltrates and/or edema. New pneumomediastinum and subcutaneous cutaneous air in the right supraclavicular region. Microbiology Date/Time Source Procedure Growth Status 05/02/20 15:25 Urine,Clean Catch Urine Culture - Final Kat Parapsilosis Complete 04/29/20 19:00 Blood Blood Culture - Final NO GROWTH AFTER 5 DAYS Complete 04/14/20 16:35 Stool Clostridium difficile Toxin Assay - Final Complete 04/12/20 08:40 Sputum Gram Stain - Final Complete 04/12/20 08:40 Sputum Sputum Culture - Final NORMAL UPPER RESPIRATORY WILIAM AT 48 ... Complete Labs Test 05/12/20 08:45 White Blood Count 11.9 K/UL (4.8-10.8) Red Blood Count 4.04 M/UL (4.70-6.10) Hemoglobin 11.4 G/DL (14.2-18.0) Hematocrit 35.9 % (42.0-52.0) Mean Corpuscular Volume 89 FL (80-99) Mean Corpuscular Hemoglobin 28.2 PG (27.0-31.0) Mean Corpuscular Hemoglobin Concent 31.7 G/DL (32.0-36.0) Red Cell Distribution Width 15.8 % (11.6-14.8) Platelet Count 393 K/UL (150-450) Mean Platelet Volume 6.1 FL (6.5-10.1) Neutrophils (%) (Auto) 78.7 % (45.0-75.0) Lymphocytes (%) (Auto) 12.5 % (20.0-45.0) Monocytes (%) (Auto) 6.6 % (1.0-10.0) Eosinophils (%) (Auto) 1.2 % (0.0-3.0) Basophils (%) (Auto) 1.0 % (0.0-2.0) Sodium Level 137 MMOL/L (136-145) Potassium Level 4.1 MMOL/L (3.5-5.1) Chloride Level 99 MMOL/L (98-107) Carbon Dioxide Level 30 MMOL/L (21-32) Anion Gap 9 mmol/L (5-15) Blood Urea Nitrogen 14 mg/dL (7-18) Creatinine 0.5 MG/DL (0.55-1.30) Estimat Glomerular Filtration Rate > 60 mL/min (>60) Glucose Level 127 MG/DL (74-106) Calcium Level 9.3 MG/DL (8.5-10.1) Phosphorus Level 3.1 MG/DL (2.5-4.9) Magnesium Level 2.0 MG/DL (1.8-2.4) Total Bilirubin 0.5 MG/DL (0.2-1.0) Aspartate Amino Transf (AST/SGOT) 16 U/L (15-37) Alanine Aminotransferase (ALT/SGPT) 32 U/L (12-78) Alkaline Phosphatase 106 U/L (46-116) C-Reactive Protein, Quantitative 9.1 mg/dL (0.00-0.90) Pro-B-Type Natriuretic Peptide 616 pg/mL (0-125) Total Protein 6.8 G/DL (6.4-8.2) Albumin 3.0 G/DL (3.4-5.0) Globulin 3.8 g/dL Albumin/Globulin Ratio 0.8 (1.0-2.7) Current Medications Medications (Trade) Dose Ordered Sig/Dennis Route PRN Reason Start Time Stop Time Status Last Admin Dose Admin Acetaminophen (Tylenol) 650 mg Q4H PRN GT Mild Pain (Pain Scale 1-3) 05/02/20 08:45 06/01/20 08:44 05/08/20 20:28 Acetaminophen/ Hydrocodone Bitart (Danube 5/325) 1 tab Q4H PRN GT For Pain 05/09/20 16:30 05/16/20 11:59 05/13/20 08:55 Amlodipine Besylate (Norvasc) 2.5 mg BID GT 05/02/20 18:00 06/02/20 08:59 05/13/20 08:54 Chlorhexidine Gluconate (Marlen-Hex 2%) 1 applic DAILY@2000 TOPIC 03/30/20 20:00 06/28/20 19:59 05/12/20 21:19 Docusate Sodium (Colace) 100 mg Q24HRS NG 05/13/20 09:00 06/12/20 08:59 05/13/20 09:00 Enoxaparin Sodium (Lovenox) 80 mg EVERY 12 HOURS SUBQ 04/06/20 21:00 07/05/20 20:59 05/13/20 08:53 Famotidine (Pepcid) 20 mg Q12HR PRN GT HEARTBURN 05/08/20 13:15 06/01/20 15:14 05/13/20 08:52 Hydralazine HCl (Apresoline) 10 mg Q4H PRN IV For High Blood Pressure 03/30/20 12:15 06/28/20 12:14 05/11/20 14:37 Ipratropium [place] (Atrovent) 500 mcg Q6H PRN HHN Shortness of Breath 05/11/20 16:14 05/16/20 16:13 05/12/20 22:10 Lansoprazole (Prevacid) 30 mg DAILY GT 05/02/20 09:00 06/01/20 08:59 05/13/20 08:52 Lorazepam (Ativan) 1 mg Q6H PRN GT For Anxiety 05/13/20 08:45 05/16/20 20:44 05/13/20 13:06 Piperacillin Sod/ Tazobactam Sod 3.375 gm/Dextrose 100 ml @ 25 mls/hr EVERY 8 HOURS IVPB 05/13/20 22:00 05/18/20 21:59 Prednisone (predniSONE) 5 mg DAILY GT 05/13/20 09:00 06/05/20 08:59 05/13/20 08:54 Quetiapine Fumarate (SEROqueL) 50 mg EVERY 8 HOURS GT 05/13/20 14:00 06/11/20 11:59 05/13/20 13:58 Kisha Salazar MD May 13, 2020 16:47
[2020-05-13] MEDS: cefTRIAXone 1 GM in D5W 50 ML IVPB SCH (17:15)
--- NOTE | 2020-05-13 19:17 | NUR ---
NURSE NOTES: Got report from Desi RN. Pt stable/asymptomatic. Pt is A+Ox4. Bedbound. Pt is Sinus Tachycardia(104) on the monitor, Dr. guido. Pt is sating 98% O2 on ventilator Settings AC:18 TV:750 FIO2:40% PEEP:5, no acute S/S of resp distress or discomfort noted. Pt on Gtube Glucerna 1.5@50 tolerating well. Pt has joseph catheter draining to gravity intact patent. Skin issues noted. Pt bed is low, locked, armed, call light within reach, bed rails up times 3. Continue to monitor.
[2020-05-13 20:00] VITALS: BP 136/77
[2020-05-13] MEDS: Dyna-Hex 2% Top Sol 2oz TOPIC SCH (20:06)
[2020-05-13] MEDS: metroNIDAZOLE 250mg tab ORAL SCH (21:30)
[2020-05-14] VITALS: BP 132/71
[2020-05-14 04:00] VITALS: BP 144/76
[2020-05-14 06:01] LABS: BASOPHILS % (AUTO) 0.9 % (0.0-2.0); EOSINOPHILS % (AUTO) 2.4 % (0.0-3.0); HEMATOCRIT 35.4 % (42.0-52.0); HEMOGLOBIN 11.2 G/DL (14.2-18.0); MEAN CORPUSCULAR VOLUME 90 FL (80-99); MONOCYTES % (AUTO) 4.5 % (1.0-10.0); NEUTROPHILS % (AUTO) 79.2 % (45.0-75.0); PLATELET COUNT 395 K/UL (150-450); RED BLOOD COUNT 3.94 M/UL (4.70-6.10); RED CELL DISTRIBUTION WIDTH 15.4 % (11.6-14.8); WHITE BLOOD COUNT 8.6 K/UL (4.8-10.8)
[2020-05-14] MEDS: LORazepam 1mg tab GT PRN (06:19)
[2020-05-14] MEDS: metroNIDAZOLE 250mg tab ORAL SCH ×3 (06:19→22:36)
[2020-05-14] MEDS: HYDROcodone/Acetamin 5/325 tab GT PRN ×3 (06:19→22:37)
[2020-05-14 06:27] LABS: ALANINE AMINOTRANSFERASE 27 U/L (12-78); ALBUMIN/GLOBULIN RATIO 0.8 (1.0-2.7); ALKALINE PHOSPHATASE 106 U/L (46-116); ANION GAP 8 mmol/L (5-15); ASPARTATE AMINO TRANSFERASE 13 U/L (15-37); BILIRUBIN,TOTAL 0.3 MG/DL (0.2-1.0); BLOOD UREA NITROGEN 21 mg/dL (7-18); CALCIUM 9.2 MG/DL (8.5-10.1); CARBON DIOXIDE 31 MMOL/L (21-32); CHLORIDE 99 MMOL/L (98-107); CREATININE 0.5 MG/DL (0.55-1.30); POTASSIUM 4.2 MMOL/L (3.5-5.1); SODIUM 138 MMOL/L (136-145)
--- NOTE | 2020-05-14 07:15 | NUR ---
NURSE NOTES: Received report from PRIYANKA Puente. Pt in bed asleep, responsive to verbal tactile. Trace connect to vent with setting [id number]%, peep of 5. No acute respiratory or cardiac distress noted. On tube feeding via G-tube running w/Glucerna 1.5 @50ml/hr patent and asymptomatic. CXR ordered and pending status. IV site in right upper arm with PICC SL patent and asymptomatic. On DAVIS mattress, side railsx3 up for safety. F/C cath patent and yellow color urine noted. Will continue to plan of care.
--- NOTE | 2020-05-14 07:15 | NUR ---
NURSE HAND-OFF REPORT: Important Events on Shift:[] Patient Status: [STABLE] Diet: [GLUCERNA 1.5@50] Pending Orders: [] Pending Results/Labs:[] Pending MD notification:[] Latest Vital Signs: Temperature 97.6 , Pulse 101 , B/P 141 /78 , Respiratory Rate 16 , O2 SAT 99 , Mechanical Ventilator, O2 Flow Rate . Vital Sign Comment: [] EKG Rhythm: Sinus Tachycardia Rhythm change?: N MD Notified?: Y -Dr Emperatriz INTERIANO Response: Order Received& Read Back Latest Hassan Fall Score: 35 Fall Risk: Medium Risk Safety Measures: Call light Within Reach, Bed Alarm Zone 2, Side Rails Side Rails x3, Bed position Low and Locked. Fall Precautions: Yellow Socks Yellow Gown Door Sign Patient Fall Education Report given to [MIN RN].
[2020-05-14 07:38] LABS: APPEARANCE,URINE CLOUDY; BILIRUBIN, URINE NEGATIVE (NEGATIVE); GLUCOSE, URINE (UA) NEGATIVE (NEGATIVE); KETONES,URINE 1+ (NEGATIVE); LEUKOCYTE ESTERASE ,URINE 2+ (NEGATIVE); NITRITE,URINE POSITIVE (NEGATIVE); PH,URINE 5 (4.5-8.0); PROTEIN,URINE 3+ (NEGATIVE); UROBILINOGEN,URINE 4 MG/DL (0.0-1.0)
[2020-05-14 07:43] LABS: COLOR,URINE YELLOW
[2020-05-14 08:00] VITALS: BP 113/82
[2020-05-14] MEDS: Docusate 100mg/10ml Liq NG SCH (08:33)
[2020-05-14] MEDS: Enoxaparin 80mg Inj SUBQ SCH ×2 (08:35→20:07)
--- NOTE | 2020-05-14 08:45 | Pulmonology Progress Note ---
Subjective ROS Limited/Unobtainable: Yes Interval Events: S/p tracheostomy 04/25/20 Constitutional: Reports: other - + trach and vent ; Denies: fever HEENT: Repors: no symptoms Respiratory: Reports: dry cough, shortness of breath Cardiovascular: Reports: no symptoms Gastrointestinal/Abdominal: Denies: nausea, vomiting, diarrhea Psychiatric: Reports: other - NA Skin: Denies: rash Musculoskeletal: Denies: pain Allergies: Coded Allergies: No Known Allergies (Unverified , 02/05/20) Objective Last 24 Hour Vital Signs Date Time Temp Pulse Resp B/P (MAP) Pulse Ox O2 Delivery O2 Flow Rate FiO2 05/14/20 08:33 103 113/82 05/14/20 08:00 97.9 103 16 113/82 (92) 98 05/14/20 08:00 40 05/14/20 07:58 104 05/14/20 07:45 101 21 40 05/14/20 06:54 101 16 141/78 99 05/14/20 06:54 97.6 05/14/20 06:19 101 16 144/76 99 05/14/20 04:00 Mechanical Ventilator 05/14/20 04:00 101 05/14/20 04:00 97.6 101 16 144/76 (98) 99 05/14/20 04:00 40 05/14/20 03:17 105 24 40 05/14/20 00:00 104 05/14/20 00:00 97.9 103 16 132/71 (91) 98 05/14/20 00:00 Mechanical Ventilator 05/14/20 00:00 40 05/13/20 23:10 104 22 40 05/13/20 21:52 101 16 137/78 98 05/13/20 21:52 97.3 05/13/20 21:08 104 16 136/77 98 05/13/20 21:00 Mechanical Ventilator 05/13/20 21:00 40 05/13/20 20:00 97.3 104 16 136/77 (96) 98 05/13/20 20:00 101 05/13/20 19:55 102 23 40 05/13/20 17:16 109 135/70 05/13/20 16:00 100 05/13/20 16:00 96.8 104 21 135/70 (91) 98 05/13/20 16:00 40 05/13/20 16:00 Mechanical Ventilator 05/13/20 15:00 110 22 40 05/13/20 12:05 108 23 40 05/13/20 12:00 40 05/13/20 12:00 Mechanical Ventilator 05/13/20 11:58 97.1 107 26 160/89 (112) 97 05/13/20 11:51 112 05/13/20 08:54 109 160/86 Intake and Output 05/13/20 05/14/20 19:00 07:00 Intake Total 650 ml 100 ml Output Total 350 ml 500 ml Balance 300 ml -400 ml Free Water 100 ml 50 ml Tube Feeding 550 ml 50 ml Output Urine Total 350 ml 500 ml # Bowel Movements 1 General Appearance: WD/WN, no acute distress HEENT: normocephalic, atraumatic, status post trach Respiratory: chest wall non-tender Cardiovascular: normal rate, regular rhythm Abdomen: normal bowel sounds, soft, non tender, other - obese Extremities: other - L arm weakness and swelling without redness Laboratory Tests 05/14/20 05:50: White Blood Count 8.6, Red Blood Count 3.94L, Hemoglobin 11.2L, Hematocrit 35.4L , Mean Corpuscular Volume 90, Mean Corpuscular Hemoglobin 28.4, Mean Corpuscular Hemoglobin Concent 31.6L, Red Cell Distribution Width 15.4H, Platelet Count 395, Mean Platelet Volume 6.1L, Neutrophils (%) (Auto) 79.2H, Lymphocytes (%) (Auto) 13.0L, Monocytes (%) (Auto) 4.5, Eosinophils (%) (Auto) 2.4, Basophils (%) (Auto) 0.9, Sodium Level 138, Potassium Level 4.2, Chloride Level 99, Carbon Dioxide Level 31, Anion Gap 8, Blood Urea Nitrogen 21H, Creatinine 0.5L, Estimat Glomerular Filtration Rate > 60, Glucose Level 117H, Calcium Level 9.2, Total Bilirubin 0.3, Aspartate Amino Transf (AST/SGOT) 13L, Alanine Aminotransferase (ALT/SGPT) 27, Alkaline Phosphatase 106, Total Protein 6.7, Albumin 3.0L, Globulin 3.7, Albumin/Globulin Ratio 0.8L 05/14/20 07:00: Urine Color Yellow, Urine Appearance Cloudy, Urine pH 5, Urine Specific [place] 1.025, Urine Protein 3+H, Urine Glucose (UA) Negative, Urine Ketones 1+H, Urine Blood 5+H, Urine Nitrite PositiveH, Urine Bilirubin Negative, Urine Urobilinogen 4H, Urine Leukocyte Esterase 2+H, Urine RBC 15-20H, Urine WBC 20-30H, Urine Squamous Epithelial Cells Occasional, Urine Bacteria ManyH, Urine Yeast FewH Current Medications Medications (Trade) Dose Ordered Sig/Dennis Route PRN Reason Start Time Stop Time Status Last Admin Dose Admin Acetaminophen (Tylenol) 650 mg Q4H PRN GT Mild Pain (Pain Scale 1-3) 05/02/20 08:45 06/01/20 08:44 05/08/20 20:28 Acetaminophen/ Hydrocodone Bitart (Supply 5/325) 1 tab Q4H PRN GT For Pain 05/09/20 16:30 05/16/20 11:59 05/14/20 06:19 Amlodipine Besylate (Norvasc) 2.5 mg BID GT 05/02/20 18:00 06/02/20 08:59 05/14/20 08:33 Ceftriaxone Sodium 1 gm/ Dextrose 50 ml @ 100 mls/hr Q24H IVPB 05/13/20 17:00 05/20/20 16:59 05/13/20 17:15 Chlorhexidine Gluconate (Marlen-Hex 2%) 1 applic DAILY@2000 TOPIC 03/30/20 20:00 06/28/20 19:59 05/13/20 20:06 Docusate Sodium (Colace) 100 mg Q24HRS NG 05/13/20 09:00 06/12/20 08:59 05/14/20 08:33 Enoxaparin Sodium (Lovenox) 80 mg EVERY 12 HOURS SUBQ 04/06/20 21:00 07/05/20 20:59 05/14/20 08:35 Famotidine (Pepcid) 20 mg Q12HR PRN GT HEARTBURN 05/08/20 13:15 06/01/20 15:14 05/13/20 08:52 Hydralazine HCl (Apresoline) 10 mg Q4H PRN IV For High Blood Pressure 03/30/20 12:15 06/28/20 12:14 05/11/20 14:37 Ipratropium [place] (Atrovent) 500 mcg Q6H PRN HHN Shortness of Breath 05/11/20 16:14 05/16/20 16:13 05/12/20 22:10 Lansoprazole (Prevacid) 30 mg DAILY GT 05/02/20 09:00 06/01/20 08:59 05/14/20 08:33 Lorazepam (Ativan) 1 mg Q6H PRN GT For Anxiety 05/13/20 08:45 05/16/20 20:44 05/14/20 06:19 Metronidazole (Flagyl) 500 mg Q8HR ORAL 05/13/20 22:00 05/20/20 21:59 05/14/20 06:19 Prednisone (predniSONE) 5 mg DAILY GT 05/13/20 09:00 06/05/20 08:59 05/14/20 08:33 Quetiapine Fumarate (SEROqueL) 50 mg EVERY 8 HOURS GT 05/13/20 14:00 06/11/20 11:59 05/14/20 06:20 Assessment/Plan Assessment/Plan 1.COVID-19 pneumonia. - Completed specific therapies - off solumedrol 20 Iv q 12 -> now on prednisone 5 mg PO QD - will add bactrim for PJP prophylaxis 2. DVT ppx - on lovenox 3. Hypertension - no longer on meds - Not requiring pressors 4. Leukocytosis; - ID following - Off abx - Candidemia documented 03/18/20 5. Elevated LFT - positive Hep C; treated in the past with IF 6. Respiratory failure -Intubated 03/28/20; s/p tracheostomy 04/25/20 -Gradually weaned off sedation IOV 7. Left UE edema - On full dose Lovenox - restart lasix? 8. L arm edema and pain - hx of thrombosis -> on Lovenox - no redness - continue to monitor per ID Will wean down FiO2 as tolerated CXR shows bilateral interstitial changes? fibrosis? S/p PEG Off IV fluids Dc planning to subacute -> ordered housing case manager consult for placement On seroquel 50 mg PO TID; On Ativan and Supply DC pending placement The care of this patient was discussed with my supervising physician Time spent for this encounter was approximately 31 minutes Edilson Marinelli May 14, 2020 08:45
--- NOTE | 2020-05-14 10:51 | Surgery Progress Note ---
Surgery Progress Note Subjective Procedure Performed tracheostomy Additional Comments afebrile, HD Stable comfortable awake responsive no n/v no f/c awaiting placement Objective Last 24 Hour Vital Signs Date Time Temp Pulse Resp B/P (MAP) Pulse Ox O2 Delivery O2 Flow Rate FiO2 05/14/20 08:33 103 113/82 05/14/20 08:00 97.9 103 16 113/82 (92) 98 05/14/20 08:00 40 05/14/20 08:00 Mechanical Ventilator 05/14/20 07:58 104 05/14/20 07:45 101 21 40 05/14/20 06:54 101 16 141/78 99 05/14/20 06:54 97.6 05/14/20 06:19 101 16 144/76 99 05/14/20 04:00 Mechanical Ventilator 05/14/20 04:00 101 05/14/20 04:00 97.6 101 16 144/76 (98) 99 05/14/20 04:00 40 05/14/20 03:17 105 24 40 05/14/20 00:00 104 05/14/20 00:00 97.9 103 16 132/71 (91) 98 05/14/20 00:00 Mechanical Ventilator 05/14/20 00:00 40 05/13/20 23:10 104 22 40 05/13/20 21:52 101 16 137/78 98 05/13/20 21:52 97.3 05/13/20 21:08 104 16 136/77 98 05/13/20 21:00 Mechanical Ventilator 05/13/20 21:00 40 05/13/20 20:00 97.3 104 16 136/77 (96) 98 05/13/20 20:00 101 05/13/20 19:55 102 23 40 05/13/20 17:16 109 135/70 05/13/20 16:00 100 05/13/20 16:00 96.8 104 21 135/70 (91) 98 05/13/20 16:00 40 05/13/20 16:00 Mechanical Ventilator 05/13/20 15:00 110 22 40 05/13/20 12:05 108 23 40 05/13/20 12:00 40 05/13/20 12:00 Mechanical Ventilator 05/13/20 11:58 97.1 107 26 160/89 (112) 97 05/13/20 11:51 112 I&O Intake and Output 05/13/20 05/14/20 19:00 07:00 Intake Total 650 ml 100 ml Output Total 350 ml 500 ml Balance 300 ml -400 ml Free Water 100 ml 50 ml Tube Feeding 550 ml 50 ml Output Urine Total 350 ml 500 ml # Bowel Movements 1 Dressing: dry Wound: clean Cardiovascular: RSR Respiratory: clear, decreased breath sounds Abdomen: soft, flat, non-tender, present bowel sounds, non-distended Extremities: no edema, no tenderness, no cyanosis Laboratory Tests Test 05/14/20 05:50 05/14/20 07:00 White Blood Count 8.6 K/UL (4.8-10.8) Red Blood Count 3.94 M/UL (4.70-6.10) L Hemoglobin 11.2 G/DL (14.2-18.0) L Hematocrit 35.4 % (42.0-52.0) L Mean Corpuscular Volume 90 FL (80-99) Mean Corpuscular Hemoglobin 28.4 PG (27.0-31.0) Mean Corpuscular Hemoglobin Concent 31.6 G/DL (32.0-36.0) L Red Cell Distribution Width 15.4 % (11.6-14.8) H Platelet Count 395 K/UL (150-450) Mean Platelet Volume 6.1 FL (6.5-10.1) L Neutrophils (%) (Auto) 79.2 % (45.0-75.0) H Lymphocytes (%) (Auto) 13.0 % (20.0-45.0) L Monocytes (%) (Auto) 4.5 % (1.0-10.0) Eosinophils (%) (Auto) 2.4 % (0.0-3.0) Basophils (%) (Auto) 0.9 % (0.0-2.0) Sodium Level 138 MMOL/L (136-145) Potassium Level 4.2 MMOL/L (3.5-5.1) Chloride Level 99 MMOL/L (98-107) Carbon Dioxide Level 31 MMOL/L (21-32) Anion Gap 8 mmol/L (5-15) Blood Urea Nitrogen 21 mg/dL (7-18) H Creatinine 0.5 MG/DL (0.55-1.30) L Estimat Glomerular Filtration Rate > 60 mL/min (>60) Glucose Level 117 MG/DL (74-106) H Calcium Level 9.2 MG/DL (8.5-10.1) Total Bilirubin 0.3 MG/DL (0.2-1.0) Aspartate Amino Transf (AST/SGOT) 13 U/L (15-37) L Alanine Aminotransferase (ALT/SGPT) 27 U/L (12-78) Alkaline Phosphatase 106 U/L (46-116) Total Protein 6.7 G/DL (6.4-8.2) Albumin 3.0 G/DL (3.4-5.0) L Globulin 3.7 g/dL Albumin/Globulin Ratio 0.8 (1.0-2.7) L Urine Color Yellow Urine Appearance Cloudy Urine pH 5 (4.5-8.0) Urine Specific [place] 1.025 (1.005-1.035) Urine Protein 3+ (NEGATIVE) H Urine Glucose (UA) Negative (NEGATIVE) Urine Ketones 1+ (NEGATIVE) H Urine Blood 5+ (NEGATIVE) H Urine Nitrite Positive (NEGATIVE) H Urine Bilirubin Negative (NEGATIVE) Urine Urobilinogen 4 MG/DL (0.0-1.0) H Urine Leukocyte Esterase 2+ (NEGATIVE) H Urine RBC 15-20 /HPF (0 - 0) H Urine WBC 20-30 /HPF (0 - 0) H Urine Squamous Epithelial Cells Occasional /LPF Urine Bacteria Many /HPF (NONE) H Urine Yeast Few /HPF (NONE) H Plan Problems: (1) Pneumonia (2) Staphylococcus aureus bacteremia (3) COVID-19 virus infection Assessment & Plan: prior now neg improving (4) Chest pain (5) Hypertension (6) Dehydration (7) Electrolyte imbalance (8) DMII (diabetes mellitus, type 2) (9) Protein malnutrition Assessment & Plan: DAILY ESTIMATED NEEDS: Needs based on Critical care, wound 81kg abw 22-28 kcals/kg 4611-9919 total kcals 1.25-2 g protein/kg 101-162 g total protein 25-30 mL/kg 2047-2409 total fluid mLs NUTRITION DIAGNOSIS: * Increased kcal/prot/micronutrients needs R/T wound healing as evidenced by pt w/ new multiple pressure injuries, 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 * Inadequate oral intake R/T clinical and respiratory status as evidenced by COVID-19 ++, on continuous BIPAP, prolonged meal refusals, pt is now on TPN, pt orally intubated (03/28), s/p trach placement (04/26), and s/p PEG placement (04/27), now on GT feeds. * Decreased sodium and fat needs r/t HTN and obesity as evidenced by pt w/ cardiac history, elev BP (159/98-> now improved, on BP meds and diuretics), BMI >30, obese per guidelines. (INACTIVE) CURRENT TF:Glucerna 1.5 goal of 50 + Prosource BID ENTERAL NUTRITION RECOMMENDATIONS: Glucerna 1.5 @ 50ml/hr x 24 hrs + Prosource 1pkt BID to provide 1200ml, 1800kcal, 99g +22g prot (121g total prot), 926ml free water * Maintain current TF order * Con't Prosource 1pkt BID (additional 22g prot) to better meet est prot needs. ADDITIONAL RECOMMENDATIONS: 1) Maintain calibrated bedscale wts 2) Monitor BGs closely w/ Solumedrol (POC glu wnl at this time) 3) Monitor lytes, replete as needed 4) Monitor TF tolerance: PEG placed 04/28, cont to increase TF to goal as tolerated 5) Wound healing: Add Michael BID (mix w/ 2-4oz of water) TF @ goal provides 100% RDI, add Vit C 500mg QD, ZnSO4 220mg [id number] (10) Respiratory insufficiency Assessment & Plan: 64-year-old male with respiratory insufficiency intubated in an intensive care unit. Patient has been unable to safely wean off ventilatory support. Surgery called to evaluate for tracheostomy. After careful evaluation patient is a candidate for tracheostomy. In the meantime will obtain consent. If consent obtained will proceed with scheduling. Thank you for your participation's care will follow recommendations improving trach okay agitated weaning sedation no n/v cont weaning transition to oral meds via g tube get off drips improving downgraded weaning well more alert and awake responsive will need placement trach collar consideration pending sub acute placement okay for placement cont trach care leave sutures in place as dissolvable recovering well fully awake now tolerating diet d/c planning awaiting placement Benyamini,Booker May 14, 2020 10:51
[2020-05-14 11:51] VITALS: BP 120/88
--- NOTE | 2020-05-14 12:09 | Cardiology Progress Note ---
Assessment/Plan Assessment/Plan Acute covid 19 pneumonia hypoxemia infiltrate bilat bacteremia hypernatremia / hyponatremia mild abn lfts tachy post intubation fever fungemia dvt upper ext now on 40 % fio2 , have been successfully weaned form 100 % s/p trach / peg now afebrile now hypoxemia unlikely cardiac related cxr last performed 04/30 will reorder for am tele reviewed sinus / sinus tachy now is on full dose anticoag due to dvt ue cr is stable d/w rn noredwin for bp more awake off iv sedative bp better on norvasc repeat cxr to be transferred to half-way care faciliity seems comfortable cxr noted asper pulm Subjective ROS Limited/Unobtainable: Yes Objective Last 24 Hour Vital Signs Date Time Temp Pulse Resp B/P (MAP) Pulse Ox O2 Delivery O2 Flow Rate FiO2 05/14/20 11:51 97.9 95 18 120/88 (99) 99 05/14/20 11:18 98 22 40 05/14/20 08:33 103 113/82 05/14/20 08:00 97.9 103 16 113/82 (92) 98 05/14/20 08:00 40 05/14/20 08:00 Mechanical Ventilator 05/14/20 07:58 104 05/14/20 07:45 101 21 40 05/14/20 06:54 101 16 141/78 99 05/14/20 06:54 97.6 05/14/20 06:19 101 16 144/76 99 05/14/20 04:00 Mechanical Ventilator 05/14/20 04:00 101 05/14/20 04:00 97.6 101 16 144/76 (98) 99 05/14/20 04:00 40 05/14/20 03:17 105 24 40 05/14/20 00:00 104 05/14/20 00:00 97.9 103 16 132/71 (91) 98 05/14/20 00:00 Mechanical Ventilator 05/14/20 00:00 40 05/13/20 23:10 104 22 40 05/13/20 21:52 101 16 137/78 98 05/13/20 21:52 97.3 05/13/20 21:08 104 16 136/77 98 05/13/20 21:00 Mechanical Ventilator 05/13/20 21:00 40 05/13/20 20:00 97.3 104 16 136/77 (96) 98 05/13/20 20:00 101 05/13/20 19:55 102 23 40 05/13/20 17:16 109 135/70 05/13/20 16:00 100 05/13/20 16:00 96.8 104 21 135/70 (91) 98 05/13/20 16:00 40 05/13/20 16:00 Mechanical Ventilator 05/13/20 15:00 110 22 40 General Appearance: no apparent distress, alert, on vent Cardiovascular: normal rate Respiratory/Chest: lungs clear Abdomen: normal bowel sounds, non tender, soft Extremities: no swelling Intake and Output 05/13/20 05/14/20 19:00 07:00 Intake Total 650 ml 100 ml Output Total 350 ml 500 ml Balance 300 ml -400 ml Free Water 100 ml 50 ml Tube Feeding 550 ml 50 ml Output Urine Total 350 ml 500 ml # Bowel Movements 1 Laboratory Tests Test 05/14/20 05:50 05/14/20 07:00 White Blood Count 8.6 K/UL (4.8-10.8) Red Blood Count 3.94 M/UL (4.70-6.10) L Hemoglobin 11.2 G/DL (14.2-18.0) L Hematocrit 35.4 % (42.0-52.0) L Mean Corpuscular Volume 90 FL (80-99) Mean Corpuscular Hemoglobin 28.4 PG (27.0-31.0) Mean Corpuscular Hemoglobin Concent 31.6 G/DL (32.0-36.0) L Red Cell Distribution Width 15.4 % (11.6-14.8) H Platelet Count 395 K/UL (150-450) Mean Platelet Volume 6.1 FL (6.5-10.1) L Neutrophils (%) (Auto) 79.2 % (45.0-75.0) H Lymphocytes (%) (Auto) 13.0 % (20.0-45.0) L Monocytes (%) (Auto) 4.5 % (1.0-10.0) Eosinophils (%) (Auto) 2.4 % (0.0-3.0) Basophils (%) (Auto) 0.9 % (0.0-2.0) Sodium Level 138 MMOL/L (136-145) Potassium Level 4.2 MMOL/L (3.5-5.1) Chloride Level 99 MMOL/L (98-107) Carbon Dioxide Level 31 MMOL/L (21-32) Anion Gap 8 mmol/L (5-15) Blood Urea Nitrogen 21 mg/dL (7-18) H Creatinine 0.5 MG/DL (0.55-1.30) L Estimat Glomerular Filtration Rate > 60 mL/min (>60) Glucose Level 117 MG/DL (74-106) H Calcium Level 9.2 MG/DL (8.5-10.1) Total Bilirubin 0.3 MG/DL (0.2-1.0) Aspartate Amino Transf (AST/SGOT) 13 U/L (15-37) L Alanine Aminotransferase (ALT/SGPT) 27 U/L (12-78) Alkaline Phosphatase 106 U/L (46-116) Total Protein 6.7 G/DL (6.4-8.2) Albumin 3.0 G/DL (3.4-5.0) L Globulin 3.7 g/dL Albumin/Globulin Ratio 0.8 (1.0-2.7) L Urine Color Yellow Urine Appearance Cloudy Urine pH 5 (4.5-8.0) Urine Specific [place] 1.025 (1.005-1.035) Urine Protein 3+ (NEGATIVE) H Urine Glucose (UA) Negative (NEGATIVE) Urine Ketones 1+ (NEGATIVE) H Urine Blood 5+ (NEGATIVE) H Urine Nitrite Positive (NEGATIVE) H Urine Bilirubin Negative (NEGATIVE) Urine Urobilinogen 4 MG/DL (0.0-1.0) H Urine Leukocyte Esterase 2+ (NEGATIVE) H Urine RBC 15-20 /HPF (0 - 0) H Urine WBC 20-30 /HPF (0 - 0) H Urine Squamous Epithelial Cells Occasional /LPF Urine Bacteria Many /HPF (NONE) H Urine Yeast Few /HPF (NONE) H Objective pt seen persoanlly Manan Awan MD May 14, 2020 12:09
--- NOTE | 2020-05-14 12:10 | Nephrology Progress Note ---
Assessment/Plan Problem List: (1) Dehydration (2) Electrolyte imbalance (3) COVID-19 virus infection (4) Pneumonia (5) DMII (diabetes mellitus, type 2) (6) Protein malnutrition Assessment Azotemia, hypernatremia Hypoalbuminemia Staff Otilia bacteremia COVID-19 isolation, pneumonia, bilateral infiltrate Hypertension Diabetes mellitus History of smoking Plan May 14: Labs reviewed. Stable renal parameters. May 13: No labs drawn today. Stable from renal standpoint of view. Continue per consultants. May 12: Labs reviewed. Renal parameters stable. Status quo. Continue per consultants. May 11: No labs drawn today. Will check can panel tomorrow. Medication list reviewed. Patient remains full code. Continue per consultants. May 10: Labs reviewed. Serum sodium higher. Renal parameters and electrolytes stable. Medication list reviewed. Continue per consultants. May 09: Labs reviewed. Serum sodium 135. Continue to monitor electrolytes. Medication list reviewed. Continue per current management. May 08: Labs reviewed. Renal parameters stable. Medication list reviewed. Continue per consultants. May 07: No labs drawn today reviewed. Clinically stable. Medication list re viewed. Will check lab tomorrow. Continue per consultants. May 06: Labs reviewed. Renal parameters stable. Continue per consultants. May 05: Labs reviewed. Renal parameters stable. Patient is due to be transferred to SCU. Continue per consultants. Medication list reviewed. May 04: Labs reviewed. Renal parameters stable. Overall status unchanged. Remains full code. Fed through GT tube. Trach to vent. FiO2 45%. Continue per consultants. May 03: No CHEM panel drawn today. Patient clinically stable. Has trach to vent and PEG. Will check lab tomorrow. May 02: Labs reviewed. Status quo. Patient is trached and vented. Also has PEG. Is full code. Stable from renal standpoint of view. May 01: Labs reviewed. Status quo. Patient has trach connected to vent. Has PEG. He is full code. FiO2 50%. April 30: Status quo. Labs reviewed. Renal parameters stable. Medication list reviewed. April 29: Status quo. Received PEG yesterday. Has trach connected to vent. FiO2 40%. Labs reviewed. Medication list reviewed. Continue same April 28: Status quo. Labs reviewed. Renal parameters stable. Patient n.p.o. due for PEG insertion. IV changed to D5 normal saline. Continue per consultants. April 27: Status quo. Labs reviewed. Medication list reviewed. Stable from renal standpoint of view. Abnormal electrolytes addressed. April 26: Patient is now trached and connected to vent. FiO2 70%. Labs reviewed. Renal parameters stable. Medication list reviewed. Continue per consultants. April 25: Status quo. Full code. FiO2 55%. No labs drawn today. Continue to monitor electrolytes and renal parameters. Continue per consultants. April 24: Status quo. Full code. Intubated on ventilator. FiO2 65%. Labs reviewed. Renal parameters and electrolytes stable. April 23: Status unchanged. Full code. Intubated on ventilator. FiO2 75%. Labs reviewed. Renal parameters stable. Continue per consultants. April 22: Labs reviewed. Patient remains intubated on ventilator and full code. FiO2 90%. Day 77 hospitalization. Not much to add from renal standpoint of view April 21: No CHEM panel drawn today. FiO2 60%. Patient full code. Continue per consultants. April 20: Labs reviewed. Renal parameters stable. Patient remains full code. Intubated on ventilator with FiO2 currently at 70%. Continue per consultants. April 19: No labs drawn today. Remains full code on FiO2 of 100%. Continue per consultants. April 18: Status quo. Labs reviewed. Renal parameters stable. April 17: Status quo. Intubated on ventilator. Full code. Labs reviewed. Electrolytes and renal parameters stable. Continue per consultants. April 16: Girlfriend in the room. Patient awake. Intubated. Full code. Labs reviewed. Abnormal electrolyte addressed. Continue per consultants. April 15: Labs reviewed. Electrolytes and renal parameters stable. Patient full code. Continues to be intubated on ventilator. April 14: Status quo. Labs reviewed. Remains intubated on ventilator. Full code. Continue per consultants. April 13: Status quo. Labs reviewed. Renal parameters electrolytes stable. Continue per current treatment plan. April 12: On higher FiO2. Will resume Lasix daily. Continue to monitor electrolytes and renal parameters. Per consultants. April 11: FiO2 went up to 85%. Renal parameters and electrolytes reasonably well-maintained. Will monitor serum potassium. Will give IV Lasix. April 10: Status quo. Labs reviewed. Remains intubated on ventilator with FiO2 of 65%. Remains full code. Stable from renal standpoint to view. Repeat vitamin D level on April 08 pending April 09: Status quo. Labs reviewed. Stable from renal standpoint of view. Continue per consultants. April 08: Discussed with RN. Labs reviewed. Clinically improving. Requires lower PEEP. Continue per pulmonary. Continue to monitor renal parameters. April 07: Remains full code and on ventilator. Labs reviewed. Renal parameters and electrolytes stable. Continue per consultants. Blood pressure marginally improved. April 06: Full code. On ventilator. Blood pressure 80-90 systolic. IV Lasix discontinued. Free water through tube feeding ordered. Continue to monitor electrolytes and serum sodium. Down on fentanyl as possible. Discussed with RN Kevin. Clonidine patch discontinued. April 05: Status quo. Remains full code. Remains intubated. Labs reviewed. Renal parameters stable. Serum sodium 150 unchanged. Continue per consultants. April 04: Remains intubated and on ventilator. Remains full code. Labs reviewed. Serum sodium 150 unchanged. Renal parameters stable. Continue per ID and pulmonary. April 03: Intubated. On ventilator. Full code. Labs reviewed. Serum sodium 150 unchanged. Continue to monitor renal parameters. Continue per pulmonary and ID. April 02: Full code. On ventilator. Discussed with RN. Serum sodium slightly higher. Will cut down on IV Lasix. Continue per consultants. Continue to monitor renal parameters and electrolytes. April 01: Full code. Remains on ventilator. Labs reviewed. Stable from renal standpoint of view. Continue per consultants. March 31: Full code . Remains intubated on ventilator. Labs reviewed. Patient appears toxic. Discussed with RN. Maintenance IV discontinued. Medication list reviewed. Blood pressure medication stopped due to low blood pressure. Levemir insulin stopped. Continue monitor blood sugar and sliding scale insulin. March 30: Full code. On ventilator. Labs reviewed. Clonidine patch dose increased. Lasix increased. 3% saline 1 time ordered. Continue to monitor electrolytes and renal parameters. March 29: Remains full code. On mechanical ventilation. On tube feeding. Will DC TPN. Will start on maintenance IV fluid. Continue to monitor renal parameters. March 28: On BiPAP. Full code. On TPN. Labs reviewed. Discussed with pharmacy. Continue as is. Watch serum potassium. March 27: Remains on BiPAP. No chemistry panel done today. Full code. On TPN. Will check lab tomorrow. March 26: Remains on BiPAP. Remains on TPN. Labs reviewed. Electrolytes and chemistries within normal limits. Continue as is. March 25: Remains on TPN. Labs reviewed. Discussed with pharmacy. Change IV Protonix to p.o. Continue 3% saline infusion with Lasix. Patient full code. March 24: Continue to be on TPN. Labs are reviewed. Aim to collect molina ctrolytes. Discussed with pharmacy. Continue current consultants. March 23: Continues to be on TPN. Labs reviewed. Electrolytes and chemistries all acceptable. Discussed with pharmacy. Continue current management. March 22: On TPN. Labs reviewed. Low sodium noted. 3% saline to be continued. Continue to monitor electrolytes. Discussed with pharmacy. March 21: On TPN. Labs reviewed. Continue 3% saline and Lasix for mild hyponatremia. Continue TPN as these. Discussed with pharmacy. March 20: Remains on TPN. Labs reviewed. Serum sodium higher on IV Lasix and 3% saline infusion. Continue TPN as is. Continue to monitor renal parameters and electrolytes. Discussed with Dr. Mata March 19: Remains on TPN. Labs reviewed. Serum sodium 128. Will give 3% saline with IV Lasix. Continue to monitor electrolytes. No change in TPN composition. Discussed with pharmacy. March 18: Remains on TPN. Labs reviewed. Discussed with pharmacist. Will give 3 doses of IV Lasix 20 mg every 8 hours. Continue to monitor serum sodium electrolytes uric acid. White blood cells down. Continue per consultants. March 17: On TPN. Labs reviewed. Discussed with pharmacist. Sodium content increase. Continue to monitor CMP. Patient continues to have leukocytosis. March 16: On TPN. Labs reviewed. Discussed with pharmacist. Appropriate changes made. Continue to monitor electrolytes. March 15: Remains on TPN. Labs reviewed. Discussed with pharmacist. Continue per current management. March 14: Remains on TPN. Labs reviewed, stable. Vitamin D level low, replacement ordered. Continue to monitor electrolytes and renal parameters. March 13: Patient remains on TPN. Discussed with pharmacist. TPN's sodium content adjusted. Labs reviewed. Continue to monitor electrolytes. Blood pressure remains stable. Continue per consultants. March 12: Patient on TPN. Labs reviewed. CPK remains elevated. Abnormal electrolytes and high blood sugar discussed with pharmacist and TPN adjusted. Continue to monitor labs. Oral Protonix added. Ibuprofen discontinued. Can continue to monitor electrolytes and chemistries. Levemir for high blood sugar added. March 11: Patient on TPN. Labs as of 11:15 AM is still pending. Continue per current treatment plan. Will check labs and adjust TPN as needed. Continue per consultants. March 10: Patient on TPN. Labs reviewed. Electrolytes overall stable. CPK is elevated. Will monitor electrolyte, CPK level, lipid panel. Continue per consultants. Discussed with pharmacist. Discussed with RN. Nutritional evaluation noted. Previously: D5W 100 cc an hour Monitor electrolytes renal parameters TPN and Intralipid ordered Will follow Continue per consultants Dietary consult requested Subjective ROS Limited/Unobtainable: No Objective Objective Last 24 Hour Vital Signs Date Time Temp Pulse Resp B/P (MAP) Pulse Ox O2 Delivery O2 Flow Rate FiO2 05/14/20 11:51 97.9 95 18 120/88 (99) 99 05/14/20 11:18 98 22 40 05/14/20 08:33 103 113/82 05/14/20 08:00 97.9 103 16 113/82 (92) 98 05/14/20 08:00 40 05/14/20 08:00 Mechanical Ventilator 05/14/20 07:58 104 05/14/20 07:45 101 21 40 05/14/20 06:54 101 16 141/78 99 05/14/20 06:54 97.6 05/14/20 06:19 101 16 144/76 99 05/14/20 04:00 Mechanical Ventilator 05/14/20 04:00 101 05/14/20 04:00 97.6 101 16 144/76 (98) 99 05/14/20 04:00 40 05/14/20 03:17 105 24 40 05/14/20 00:00 104 05/14/20 00:00 97.9 103 16 132/71 (91) 98 05/14/20 00:00 Mechanical Ventilator 05/14/20 00:00 40 05/13/20 23:10 104 22 40 05/13/20 21:52 101 16 137/78 98 05/13/20 21:52 97.3 05/13/20 21:08 104 16 136/77 98 05/13/20 21:00 Mechanical Ventilator 05/13/20 21:00 40 05/13/20 20:00 97.3 104 16 136/77 (96) 98 05/13/20 20:00 101 05/13/20 19:55 102 23 40 05/13/20 17:16 109 135/70 05/13/20 16:00 100 05/13/20 16:00 96.8 104 21 135/70 (91) 98 05/13/20 16:00 40 05/13/20 16:00 Mechanical Ventilator 05/13/20 15:00 110 22 40 Intake and Output 05/13/20 05/14/20 19:00 07:00 Intake Total 650 ml 100 ml Output Total 350 ml 500 ml Balance 300 ml -400 ml Free Water 100 ml 50 ml Tube Feeding 550 ml 50 ml Output Urine Total 350 ml 500 ml # Bowel Movements 1 Current Medications Medications (Trade) Dose Ordered Sig/Dennis Route PRN Reason Start Time Stop Time Status Last Admin Dose Admin Acetaminophen (Tylenol) 650 mg Q4H PRN GT Mild Pain (Pain Scale 1-3) 05/02/20 08:45 06/01/20 08:44 05/08/20 20:28 Acetaminophen/ Hydrocodone Bitart ([place] 5/325) 1 tab Q4H PRN GT For Pain 05/09/20 16:30 05/16/20 11:59 05/14/20 06:19 Amlodipine Besylate (Norvasc) 2.5 mg BID GT 05/02/20 18:00 06/02/20 08:59 05/14/20 08:33 Ceftriaxone Sodium 1 gm/ Dextrose 50 ml @ 100 mls/hr Q24H IVPB 05/13/20 17:00 05/20/20 16:59 05/13/20 17:15 Chlorhexidine Gluconate (Marlen-Hex 2%) 1 applic DAILY@2000 TOPIC 03/30/20 20:00 06/28/20 19:59 05/13/20 20:06 Docusate Sodium (Colace) 100 mg Q24HRS NG 05/13/20 09:00 06/12/20 08:59 05/14/20 08:33 Enoxaparin Sodium (Lovenox) 80 mg EVERY 12 HOURS SUBQ 04/06/20 21:00 07/05/20 20:59 05/14/20 08:35 Famotidine (Pepcid) 20 mg Q12HR PRN GT HEARTBURN 05/08/20 13:15 06/01/20 15:14 05/13/20 08:52 Hydralazine HCl (Apresoline) 10 mg Q4H PRN IV For High Blood Pressure 03/30/20 12:15 06/28/20 12:14 05/11/20 14:37 Ipratropium [place] (Atrovent) 500 mcg Q6H PRN HHN Shortness of Breath 05/11/20 16:14 05/16/20 16:13 05/12/20 22:10 Lansoprazole (Prevacid) 30 mg DAILY GT 05/02/20 09:00 06/01/20 08:59 05/14/20 08:33 Lorazepam (Ativan) 1 mg Q6H PRN GT For Anxiety 05/13/20 08:45 05/16/20 20:44 05/14/20 06:19 Metronidazole (Flagyl) 500 mg Q8HR ORAL 05/13/20 22:00 05/20/20 21:59 05/14/20 06:19 Prednisone (predniSONE) 5 mg DAILY GT 05/13/20 09:00 06/05/20 08:59 05/14/20 08:33 Quetiapine Fumarate (SEROqueL) 50 mg EVERY 8 HOURS GT 05/13/20 14:00 06/11/20 11:59 05/14/20 06:20 Laboratory Tests 05/14/20 05:50: White Blood Count 8.6, Red Blood Count 3.94L, Hemoglobin 11.2L, Hematocrit 35.4L , Mean Corpuscular Volume 90, Mean Corpuscular Hemoglobin 28.4, Mean Corpuscular Hemoglobin Concent 31.6L, Red Cell Distribution Width 15.4H, Platelet Count 395, Mean Platelet Volume 6.1L, Neutrophils (%) (Auto) 79.2H, Lymphocytes (%) (Auto) 13.0L, Monocytes (%) (Auto) 4.5, Eosinophils (%) (Auto) 2.4, Basophils (%) (Auto) 0.9, Sodium Level 138, Potassium Level 4.2, Chloride Level 99, Carbon Dioxide Level 31, Anion Gap 8, Blood Urea Nitrogen 21H, Creatinine 0.5L, Estimat Glomerular Filtration Rate > 60, Glucose Level 117H, Calcium Level 9.2, Total Bilirubin 0.3, Aspartate Amino Transf (AST/SGOT) 13L, Alanine Aminotransferase (ALT/SGPT) 27, Alkaline Phosphatase 106, Total Protein 6.7, Albumin 3.0L, Globulin 3.7, Albumin/Globulin Ratio 0.8L 05/14/20 07:00: Urine Color Yellow, Urine Appearance Cloudy, Urine pH 5, Urine Specific Zap 1.025, Urine Protein 3+H, Urine Glucose (UA) Negative, Urine Ketones 1+H, Urine Blood 5+H, Urine Nitrite PositiveH, Urine Bilirubin Negative, Urine Urobilinogen 4H, Urine Leukocyte Esterase 2+H, Urine RBC 15-20H, Urine WBC 20-30H, Urine Squamous Epithelial Cells Occasional, Urine Bacteria ManyH, Urine Yeast FewH Height (Feet): 5 Height (Inches): 10.00 Weight (Pounds): 243 General Appearance: no apparent distress EENT: other - Trach Cardiovascular: tachycardia Respiratory/Chest: decreased breath sounds Abdomen: distended, other - PEG Rubin Cooper MD May 14, 2020 12:10
--- NOTE | 2020-05-14 12:33 | Diagnostic Imaging Report ---
EXAM: XR Chest, 1 View CLINICAL HISTORY: INFECT TECHNIQUE: Frontal view of the chest. COMPARISON: 05/12/20 FINDINGS: Since the prior examination, there is marked increase in pneumomediastinum as well as soft tissue gas to the chest wall and supraclavicular regions, right greater than left. Redemonstrated appropriately positioned tracheostomy. Tip of right arm PICC is in the SVC. No clear pneumothorax given limitations due to overlying chest wall gas. Extensive bilateral interstitial and airspace infiltrates appear similar to the prior examination, but suspect slight progression in the left upper lobe. IMPRESSION: Increasing pneumomediastinum and chest wall gas. Extensive bilateral pulmonary infiltrates, progressed in the left upper lobe. <MYCVCSECTION> Communications: 05/14/20 12:45 Verify Receipt with Nurse Verified receipt with 2nd floor Nurse Fatmata, given to Nurse Sanchez on 05/14 12:45 (-07:00)
[2020-05-14 16:00] VITALS: BP 110/73
[2020-05-14] MEDS: cefTRIAXone 1 GM in D5W 50 ML IVPB SCH (17:23)
--- NOTE | 2020-05-14 19:25 | NUR ---
NURSE HAND-OFF REPORT: Important Events on Shift: pending order for PICC insertion Patient Status: stable Diet: tube feeding via G-tube as ordered Pending Orders: PICC insertion Pending Results/Labs:n/a Pending notification:n/a Latest Vital Signs: Temperature 97.2 , Pulse 100 , B/P 135 /83 , Respiratory Rate 24 , O2 SAT 95 , Mechanical Ventilator, O2 Flow Rate . Vital Sign Comment: stable EKG Rhythm: Sinus Rhythm Rhythm change?: N MD Notified?: Y -Dr Emperatriz INTERIANO Response: Order Received& Read Back Latest Hassan Fall Score: 35 Fall Risk: Medium Risk Safety Measures: Call light Within Reach, Bed Alarm Zone 2, Side Rails Side Rails x3, Bed position Low and Locked. Fall Precautions: y Yellow Socks Yellow Gown Door Sign Patient Fall Education Report given to JOANIE Adam. Addendum: 05/15/20 at 1105 by Renny Sanchez RN wrong patient
--- NOTE | 2020-05-14 19:25 | NUR ---
NURSE HAND-OFF REPORT: Important Events on Shift: n/a Patient Status: stable Diet: G-tube feeding as ordered Pending Orders: n/a Pending Results/Labs:n/a Pending MD notification:n/a Latest Vital Signs: Temperature 97.2 , Pulse 100 , B/P 135 /83 , Respiratory Rate 24 , O2 SAT 95 , Mechanical Ventilator, O2 Flow Rate . Vital Sign Comment: stable EKG Rhythm: Sinus Rhythm Rhythm change?: N MD Notified?: Y -Dr Emperatriz INTERIANO Response: Order Received& Read Back Latest Hassan Fall Score: 35 Fall Risk: Medium Risk Safety Measures: Call light Within Reach, Bed Alarm Zone 2, Side Rails Side Rails x3, Bed position Low and Locked. Fall Precautions: Y Yellow Socks Yellow Gown Door Sign Patient Fall Education Report given to JOANIE Ramirez.
[2020-05-14 20:00] VITALS: BP 126/81
--- NOTE | 2020-05-14 20:00 | NUR ---
NURSE NOTES: RECEIVED PATIENT LYING IN BED, EYES OPEN, VENT DEPENDENT, NOTED WITH ALEXEYLEY #8 TRACH, VENT MODE AC/TIDAL VOLUME 750ML/FI02 40% / PEEP 5, RESTING IN SUPINE POSITION, HEAD OF BED ELEVATED TO FACILITATE BREATHING, NO SIGNS AND SYMPTOMS OF ACUTE CARDIO RESPIRATORY DISTRESS/SHORTNESS OF BREATH, DENIES CHEST PAIN BY NODDING HEAD, NO PERIPHERAL EDEMA NOTED. PICC LINE INTACT TO RIGHT UPPER ARM/DOUBLE LUMEN, DRESSING CHANGED ON 04/15/20. DENIES GI DISCOMFORT, NO REPORT OF NAUSEA/VOMITING, DIARRHEA X1 ON AM SHIFT. PATIENT REFUSE REPOSITIONING, MOUTHED I'M OK, EXPRESSED IMPORTANCE OF REPOSITIONING, PATIENT CONTINUE TO MOUTH "I'M OK", CHARGE NURSE MADE AWARE. WILSON CATHETER INTACT/PATENT, DRAINING CLOUDY YELLOW URINE VIA GRAVITY, DRAINAGE BAG POSITIONED BELOW LEVEL OF WAIST. SIDE RAILS UP X3, BED IN LOWEST POSITION FOR SAFETY, CALL LIGHT WITHIN REACH AT ALL TIMES, FREQUENT ROUNDING FOR SAFETY/NEEDS, CONTINUE WITH CURRENT PLAN OF CARE, DC PLANNING ONGOING. NAD.
[2020-05-14] MEDS: Dyna-Hex 2% Top Sol 2oz TOPIC SCH (20:08)
[2020-05-15] VITALS: BP 126/78
[2020-05-15 04:00] VITALS: BP 138/81
[2020-05-15 05:46] LABS: BASOPHILS % (AUTO) 0.8 % (0.0-2.0); HEMATOCRIT 33.8 % (42.0-52.0); HEMOGLOBIN 10.8 G/DL (14.2-18.0); LYMPHOCYTES % (AUTO) 14.2 % (20.0-45.0); MEAN CORPUSCULAR VOLUME 90 FL (80-99); MONOCYTES % (AUTO) 5.7 % (1.0-10.0); NEUTROPHILS % (AUTO) 76.3 % (45.0-75.0); PLATELET COUNT 402 K/UL (150-450); RED BLOOD COUNT 3.76 M/UL (4.70-6.10); RED CELL DISTRIBUTION WIDTH 15.1 % (11.6-14.8); WHITE BLOOD COUNT 7.6 K/UL (4.8-10.8)
[2020-05-15 06:02] LABS: ANION GAP 3 mmol/L (5-15); BLOOD UREA NITROGEN 25 mg/dL (7-18); CALCIUM 9.1 MG/DL (8.5-10.1); CARBON DIOXIDE 35 MMOL/L (21-32); CHLORIDE 101 MMOL/L (98-107); CREATININE 0.5 MG/DL (0.55-1.30); POTASSIUM 4.1 MMOL/L (3.5-5.1); SODIUM 139 MMOL/L (136-145)
[2020-05-15] MEDS: metroNIDAZOLE 250mg tab ORAL SCH ×3 (06:26→21:32)
--- NOTE | 2020-05-15 07:00 | NUR ---
RESPIRATORY NOTE: PT received on AC/VC: 18, 750, 40%, +5. FiO2 titrated to 35%, Pt tolerating well. Afsoon RN aware. Alarms are on and audible. Vent circuit is secure and out of the way. Airway is secure and patent. No s/s of acute respiratory distress noted at this time. Will continue to closely monitor.
--- NOTE | 2020-05-15 07:17 | NUR ---
NURSE HAND-OFF REPORT: Important Events on Shift:[REQUIRED FREQUENT SUCTIONING- DAILY WT 88.8KG AFTER DEDUCTING 12 LBS FOR MATTRESS] Patient Status: [FULL CODE] Diet: [GLUCERNA 1.5 AT 50ML/HOUR] Pending Orders: [AM LABS] Pending Results/Labs:[] Pending MD notification:[] Latest Vital Signs: Temperature 98.2 , Pulse 90 , B/P 138 /81 , Respiratory Rate 23 , O2 SAT 97 , Mechanical Ventilator, O2 Flow Rate . Vital Sign Comment: [STABLE, AFEBRILE] EKG Rhythm: Sinus Rhythm Rhythm change?: N Notified?: Y -Dr Emperatriz INTERIANO Response: Order Received& Read Back Latest Hassan Fall Score: 35 Fall Risk: Medium Risk Safety Measures: Call light Within Reach, Bed Alarm Zone 2, Side Rails Side Rails x3, Bed position Low and Locked. Fall Precautions: Yellow Socks Yellow Gown Door Sign Patient Fall Education Report given to [PRIYANKA YANES]
--- NOTE | 2020-05-15 07:19 | NUR ---
NURSE NOTES: Received pt from JOANIE Lamar, pt is sleeping, pt has trach to clotilde AC 18 TV 750 FIO2 40% PEEP 5, Pt has g tube in place is working well, pt has Brownlee cath in place is working well. pt has PICC ALBERT SL. All needs attended, bed is locked and is i the lowest position, call light within easy reach. will continue to monitor.
[2020-05-15 08:00] VITALS: BP 149/87
[2020-05-15] MEDS: LORazepam 1mg tab GT PRN ×2 (08:11→23:07)
[2020-05-15] MEDS: Enoxaparin 80mg Inj SUBQ SCH ×2 (08:12→20:20)
--- NOTE | 2020-05-15 08:24 | Pulmonology Progress Note ---
Subjective ROS Limited/Unobtainable: Yes Interval Events: S/p tracheostomy 04/25/20; FiO2 35% Constitutional: Reports: other - + trach and vent ; Denies: fever HEENT: Repors: no symptoms Respiratory: Reports: dry cough - improved, shortness of breath Cardiovascular: Reports: no symptoms Gastrointestinal/Abdominal: Denies: nausea, vomiting, diarrhea Psychiatric: Reports: other - NA Skin: Denies: rash Musculoskeletal: Denies: pain Allergies: Coded Allergies: No Known Allergies (Unverified , 02/05/20) Objective Last 24 Hour Vital Signs Date Time Temp Pulse Resp B/P (MAP) Pulse Ox O2 Delivery O2 Flow Rate FiO2 05/15/20 08:11 91 24 149/87 97 05/15/20 08:11 91 149/87 05/15/20 08:00 97.2 91 24 149/87 (107) 97 05/15/20 07:54 35 05/15/20 07:44 Mechanical Ventilator 05/15/20 07:30 93 05/15/20 04:00 Mechanical Ventilator 05/15/20 04:00 40 05/15/20 04:00 98.2 94 23 138/81 (100) 97 05/15/20 04:00 90 05/15/20 03:27 108 27 40 05/15/20 00:00 97.4 96 23 126/78 (94) 99 05/15/20 00:00 40 05/15/20 00:00 90 05/15/20 00:00 Mechanical Ventilator 05/14/20 23:07 97.7 05/14/20 22:57 99 23 40 05/14/20 20:00 99 05/14/20 20:00 Mechanical Ventilator 05/14/20 20:00 97.7 99 18 126/81 (96) 99 05/14/20 20:00 40 05/14/20 19:29 98 25 40 05/14/20 17:17 98 110/73 05/14/20 16:00 97.3 98 18 110/73 (85) 99 05/14/20 16:00 Mechanical Ventilator 05/14/20 16:00 95 05/14/20 16:00 40 05/14/20 15:55 103 23 40 05/14/20 12:00 97 05/14/20 12:00 Mechanical Ventilator 05/14/20 12:00 40 05/14/20 11:51 97.9 95 18 120/88 (99) 99 05/14/20 11:18 98 22 40 05/14/20 08:33 103 113/82 Intake and Output 05/14/20 05/15/20 19:00 07:00 Intake Total 760 ml 670 ml Output Total 500 ml 500 ml Balance 260 ml 170 ml Free Water 160 ml 120 ml Tube Feeding 600 ml 550 ml Output Urine Total 500 ml 500 ml # Voids 1 # Bowel Movements 2 3 General Appearance: WD/WN, no acute distress HEENT: normocephalic, atraumatic, status post trach Respiratory: chest wall non-tender Cardiovascular: normal rate, regular rhythm Abdomen: normal bowel sounds, soft, non tender, other - obese Extremities: other - L arm weakness and swelling without redness Laboratory Tests 05/15/20 05:12: White Blood Count 7.6, Red Blood Count 3.76L, Hemoglobin 10.8L, Hematocrit 33.8L , Mean Corpuscular Volume 90, Mean Corpuscular Hemoglobin 28.6, Mean Corpuscular Hemoglobin Concent 31.8L, Red Cell Distribution Width 15.1H, Platelet Count 402, Mean Platelet Volume 6.2L, Neutrophils (%) (Auto) 76.3H, Lymphocytes (%) (Auto) 14.2L, Monocytes (%) (Auto) 5.7, Eosinophils (%) (Auto) 3.0, Basophils (%) (Auto) 0.8, Sodium Level 139, Potassium Level 4.1, Chloride Level 101, Carbon Dioxide Level 35H, Anion Gap 3L, Blood Urea Nitrogen 25H, Creatinine 0.5L, Estimat Glomerular Filtration Rate > 60, Glucose Level 115H, Calcium Level 9.1 Current Medications Medications (Trade) Dose Ordered Sig/Dennis Route PRN Reason Start Time Stop Time Status Last Admin Dose Admin Acetaminophen (Tylenol) 650 mg Q4H PRN GT Mild Pain (Pain Scale 1-3) 05/02/20 08:45 06/01/20 08:44 05/08/20 20:28 Acetaminophen/ Hydrocodone Bitart ([place] 5/325) 1 tab Q4H PRN GT For Pain 05/09/20 16:30 05/16/20 11:59 05/14/20 22:37 Amlodipine Besylate (Norvasc) 2.5 mg BID GT 05/02/20 18:00 06/02/20 08:59 05/15/20 08:11 Ceftriaxone Sodium 1 gm/ Dextrose 50 ml @ 100 mls/hr Q24H IVPB 05/13/20 17:00 05/20/20 16:59 05/14/20 17:23 Chlorhexidine Gluconate (Marlen-Hex 2%) 1 applic DAILY@2000 TOPIC 03/30/20 20:00 06/28/20 19:59 05/14/20 20:08 Enoxaparin Sodium (Lovenox) 80 mg EVERY 12 HOURS SUBQ 04/06/20 21:00 07/05/20 20:59 05/15/20 08:12 Famotidine (Pepcid) 20 mg Q12HR PRN GT HEARTBURN 05/08/20 13:15 06/01/20 15:14 05/13/20 08:52 Hydralazine HCl (Apresoline) 10 mg Q4H PRN IV For High Blood Pressure 03/30/20 12:15 06/28/20 12:14 05/11/20 14:37 Ipratropium [place] (Atrovent) 500 mcg Q6H PRN HHN Shortness of Breath 05/11/20 16:14 05/16/20 16:13 05/12/20 22:10 Lansoprazole (Prevacid) 30 mg DAILY GT 05/02/20 09:00 06/01/20 08:59 05/15/20 08:11 Lorazepam (Ativan) 1 mg Q6H PRN GT For Anxiety 05/13/20 08:45 05/16/20 20:44 05/15/20 08:11 Metronidazole (Flagyl) 500 mg Q8HR ORAL 05/13/20 22:00 05/20/20 21:59 05/15/20 06:26 Prednisone (predniSONE) 5 mg DAILY GT 05/13/20 09:00 06/05/20 08:59 05/15/20 08:11 Quetiapine Fumarate (SEROqueL) 50 mg EVERY 8 HOURS GT 05/13/20 14:00 06/11/20 11:59 05/15/20 06:26 Assessment/Plan Assessment/Plan 1.COVID-19 pneumonia. - Completed specific therapies - off solumedrol 20 Iv q 12 -> now on prednisone 5 mg PO QD - will add bactrim for PJP prophylaxis 2. DVT ppx - on lovenox 3. Hypertension - no longer on meds - Not requiring pressors 4. Leukocytosis; - ID following - Off abx - Candidemia documented 03/18/20 5. Elevated LFT - positive Hep C; treated in the past with IF 6. Respiratory failure -Intubated 03/28/20; s/p tracheostomy 04/25/20 -Gradually weaned off sedation IOV 7. Left UE edema and weakness - will order CT head w/o contrast - hx of thrombosis -> on full dose Lovenox - no redness 8. Pneumomediastinum - no PTX - will switch tracheostomy to trach collar Will wean down FiO2 as tolerated CXR shows bilateral interstitial changes? fibrosis? S/p PEG Off IV fluids Dc planning to subacute -> ordered egg caser consult for placement On seroquel 50 mg PO TID; On Ativan and [place] DC pending placement The care of this patient was discussed with my supervising physician Time spent for this encounter was approximately 31 minutes Edilson Marinelli May 15, 2020 08:24
--- NOTE | 2020-05-15 10:45 | NUR ---
NURSE NOTES: Dr Mata visited pt and ordered PT and trach collar, noted and carried out, RT is aware. Dr Mata is aware pt refuses reposition, no new order received. will continue to monitor.
--- NOTE | 2020-05-15 11:00 | Nephrology Progress Note ---
Assessment/Plan Problem List: (1) Dehydration (2) Electrolyte imbalance (3) COVID-19 virus infection (4) Pneumonia (5) DMII (diabetes mellitus, type 2) (6) Protein malnutrition Assessment Azotemia, hypernatremia Hypoalbuminemia Staff Otilia bacteremia COVID-19 isolation, pneumonia, bilateral infiltrate Hypertension Diabetes mellitus History of smoking Plan May 15: Labs reviewed. Renal parameters stable. Patient remains full code. Is trached to vent and has PEG. May 14: Labs reviewed. Stable renal parameters. May 13: No labs drawn today. Stable from renal standpoint of view. Continue per consultants. May 12: Labs reviewed. Renal parameters stable. Status quo. Continue per consultants. May 11: No labs drawn today. Will check can panel tomorrow. Medication list reviewed. Patient remains full code. Continue per consultants. May 10: Labs reviewed. Serum sodium higher. Renal parameters and electrolytes stable. Medication list reviewed. Continue per consultants. May 09: Labs reviewed. Serum sodium 135. Continue to monitor electrolytes. Medication list reviewed. Continue per current management. May 08: Labs reviewed. Renal parameters stable. Medication list reviewed. Continue per consultants. May 07: No labs drawn today reviewed. Clinically stable. Medication list reviewed. Will check lab tomorrow. Continue per consultants. May 06: Labs reviewed. Renal parameters stable. Continue per consultants. May 05: Labs reviewed. Renal parameters stable. Patient is due to be transferred to SCU. Continue per consultants. Medication list reviewed. May 04: Labs reviewed. Renal parameters stable. Overall status unchanged. Remains full code. Fed through GT tube. Trach to vent. FiO2 45%. Continue per consultants. May 03: No CHEM panel drawn today. Patient clinically stable. Has trach to vent and PEG. Will check lab tomorrow. May 02: Labs reviewed. Status quo. Patient is trached and vented. Also has PEG. Is full code. Stable from renal standpoint of view. May 01: Labs reviewed. Status quo. Patient has trach connected to vent. Has PEG. He is full code. FiO2 50%. April 30: Status quo. Labs reviewed. Renal parameters stable. Medication list reviewed. April 29: Status quo. Received PEG yesterday. Has trach connected to vent. FiO2 40%. Labs reviewed. Medication list reviewed. Continue same April 28: Status quo. Labs reviewed. Renal parameters stable. Patient n.p.o. due for PEG insertion. IV changed to D5 normal saline. Continue per consultants. April 27: Status quo. Labs reviewed. Medication list reviewed. Stable from renal standpoint of view. Abnormal electrolytes addressed. April 26: Patient is now trached and connected to vent. FiO2 70%. Labs reviewed. Renal parameters stable. Medication list reviewed. Continue per consultants. April 25: Status quo. Full code. FiO2 55%. No labs drawn today. Continue to monitor electrolytes and renal parameters. Continue per consultants. April 24: Status quo. Full code. Intubated on ventilator. FiO2 65%. Labs reviewed. Renal parameters and electrolytes stable. April 23: Status unchanged. Full code. Intubated on ventilator. FiO2 75%. Labs reviewed. Renal parameters stable. Continue per consultants. April 22: Labs reviewed. Patient remains intubated on ventilator and full code. FiO2 90%. Day 77 hospitalization. Not much to add from renal standpoint of view April 21: No CHEM panel drawn today. FiO2 60%. Patient full code. Continue per consultants. April 20: Labs reviewed. Renal parameters stable. Patient remains full code. Intubated on ventilator with FiO2 currently at 70%. Continue per consultants. April 19: No labs drawn today. Remains full code on FiO2 of 100%. Continue per consultants. April 18: Status quo. Labs reviewed. Renal parameters stable. April 17: Status quo. Intubated on ventilator. Full code. Labs reviewed. Electrolytes and renal parameters stable. Continue per consultants. April 16: Girlfriend in the room. Patient awake. Intubated. Full code. Labs reviewed. Abnormal electrolyte addressed. Continue per consultants. April 15: Labs reviewed. Electrolytes and renal parameters stable. Patient full code. Continues to be intubated on ventilator. April 14: Status quo. Labs reviewed. Remains intubated on ventilator. Full code. Continue per consultants. April 13: Status quo. Labs reviewed. Renal parameters electrolytes stable. Continue per current treatment plan. April 12: On higher FiO2. Will resume Lasix daily. Continue to monitor electrolytes and renal parameters. Per consultants. April 11: FiO2 went up to 85%. Renal parameters and electrolytes reasonably well-maintained. Will monitor serum potassium. Will give IV Lasix. April 10: Status quo. Labs reviewed. Remains intubated on ventilator with FiO2 of 65%. Remains full code. Stable from renal standpoint to view. Repeat vitamin D level on April 08 pending April 09: Status quo. Labs reviewed. Stable from renal standpoint of view. Continue per consultants. April 08: Discussed with RN. Labs reviewed. Clinically improving. Requires lower PEEP. Continue per pulmonary. Continue to monitor renal parameters. April 07: Remains full code and on ventilator. Labs reviewed. Renal parameters and electrolytes stable. Continue per consultants. Blood pressure marginally improved. April 06: Full code. On ventilator. Blood pressure 80-90 systolic. IV Lasix discontinued. Free water through tube feeding ordered. Continue to monitor electrolytes and serum sodium. Down on fentanyl as possible. Discussed with RN Kevin. Clonidine patch discontinued. April 05: Status quo. Remains full code. Remains intubated. Labs reviewed. Renal parameters stable. Serum sodium 150 unchanged. Continue per consultants. April 04: Remains intubated and on ventilator. Remains full code. Labs reviewed. Serum sodium 150 unchanged. Renal parameters stable. Continue per ID and pulmonary. April 03: Intubated. On ventilator. Full code. Labs reviewed. Serum sodium 150 unchanged. Continue to monitor renal parameters. Continue per pulmonary and ID. April 02: Full code. On ventilator. Discussed with RN. Serum sodium slightly higher. Will cut down on IV Lasix. Continue per consultants. Continue to monitor renal parameters and electrolytes. April 01: Full code. Remains on ventilator. Labs reviewed. Stable from renal standpoint of view. Continue per consultants. March 31: Full code . Remains intubated on ventilator. Labs reviewed. Patient appears toxic. Discussed with RN. Maintenance IV discontinued. Medication list reviewed. Blood pressure medication stopped due to low blood pressure. Levemir insulin stopped. Continue monitor blood sugar and sliding scale insulin. March 30: Full code. On ventilator. Labs reviewed. Clonidine patch dose increased. Lasix increased. 3% saline 1 time ordered. Continue to monitor electrolytes and renal parameters. March 29: Remains full code. On mechanical ventilation. On tube feeding. Will DC TPN. Will start on maintenance IV fluid. Continue to monitor renal parameters. March 28: On BiPAP. Full code. On TPN. Labs reviewed. Discussed with pharmacy. Continue as is. Watch serum potassium. March 27: Remains on BiPAP. No chemistry panel done today. Full code. On TPN. Will check lab tomorrow. March 26: Remains on BiPAP. Remains on TPN. Labs reviewed. Electrolytes and chemistries within normal limits. Continue as is. March 25: Remains on TPN. Labs reviewed. Discussed with pharmacy. Change IV Protonix to p.o. Continue 3% saline infusion with Lasix. Patient full code. March 24: Continue to be on TPN. Labs are reviewed. Aim to collect electrolytes. Discussed with pharmacy. Continue current consultants. March 23: Continues to be on TPN. Labs reviewed. Electrolytes and chemis tries all acceptable. Discussed with pharmacy. Continue current management. March 22: On TPN. Labs reviewed. Low sodium noted. 3% saline to be continued. Continue to monitor electrolytes. Discussed with pharmacy. March 21: On TPN. Labs reviewed. Continue 3% saline and Lasix for mild hyponatremia. Continue TPN as these. Discussed with pharmacy. March 20: Remains on TPN. Labs reviewed. Serum sodium higher on IV Lasix and 3% saline infusion. Continue TPN as is. Continue to monitor renal parameters and electrolytes. Discussed with Dr. Mata March 19: Remains on TPN. Labs reviewed. Serum sodium 128. Will give 3% saline with IV Lasix. Continue to monitor electrolytes. No change in TPN composition. Discussed with pharmacy. March 18: Remains on TPN. Labs reviewed. Discussed with pharmacist. Will give 3 doses of IV Lasix 20 mg every 8 hours. Continue to monitor serum sodium electrolytes uric acid. White blood cells down. Continue per consultants. March 17: On TPN. Labs reviewed. Discussed with pharmacist. Sodium content increase. Continue to monitor CMP. Patient continues to have leukocytosis. March 16: On TPN. Labs reviewed. Discussed with pharmacist. Appropriate changes made. Continue to monitor electrolytes. March 15: Remains on TPN. Labs reviewed. Discussed with pharmacist. Continue per current management. March 14: Remains on TPN. Labs reviewed, stable. Vitamin D level low, replacement ordered. Continue to monitor electrolytes and renal parameters. March 13: Patient remains on TPN. Discussed with pharmacist. TPN's sodium content adjusted. Labs reviewed. Continue to monitor electrolytes. Blood pressure remains stable. Continue per consultants. March 12: Patient on TPN. Labs reviewed. CPK remains elevated. Abnormal electrolytes and high blood sugar discussed with pharmacist and TPN adjusted. Continue to monitor labs. Oral Protonix added. Ibuprofen discontinued. Can continue to monitor electrolytes and chemistries. Levemir for high blood sugar added. March 11: Patient on TPN. Labs as of 11:15 AM is still pending. Continue per current treatment plan. Will check labs and adjust TPN as needed. Continue per consultants. March 10: Patient on TPN. Labs reviewed. Electrolytes overall stable. CPK is elevated. Will monitor electrolyte, CPK level, lipid panel. Continue per consultants. Discussed with pharmacist. Discussed with RN. Nutritional evaluation noted. Previously: D5W 100 cc an hour Monitor electrolytes renal parameters TPN and Intralipid ordered Will follow Continue per consultants Dietary consult requested Subjective ROS Limited/Unobtainable: Yes Objective Objective Last 24 Hour Vital Signs Date Time Temp Pulse Resp B/P (MAP) Pulse Ox O2 Delivery O2 Flow Rate FiO2 05/15/20 08:41 100 24 135/83 95 05/15/20 08:11 91 24 149/87 97 05/15/20 08:11 91 149/87 05/15/20 08:00 97.2 91 24 149/87 (107) 97 05/15/20 07:54 35 05/15/20 07:44 Mechanical Ventilator 05/15/20 07:30 93 05/15/20 04:00 Mechanical Ventilator 05/15/20 04:00 40 05/15/20 04:00 98.2 94 23 138/81 (100) 97 05/15/20 04:00 90 05/15/20 03:27 108 27 40 05/15/20 00:00 97.4 96 23 126/78 (94) 99 05/15/20 00:00 40 05/15/20 00:00 90 05/15/20 00:00 Mechanical Ventilator 05/14/20 23:07 97.7 05/14/20 22:57 99 23 40 05/14/20 20:00 99 05/14/20 20:00 Mechanical Ventilator 05/14/20 20:00 97.7 99 18 126/81 (96) 99 05/14/20 20:00 40 05/14/20 19:29 98 25 40 05/14/20 17:17 98 110/73 05/14/20 16:00 97.3 98 18 110/73 (85) 99 05/14/20 16:00 Mechanical Ventilator 05/14/20 16:00 95 05/14/20 16:00 40 05/14/20 15:55 103 23 40 05/14/20 12:00 97 05/14/20 12:00 Mechanical Ventilator 05/14/20 12:00 40 05/14/20 11:51 97.9 95 18 120/88 (99) 99 05/14/20 11:18 98 22 40 Intake and Output 05/14/20 05/15/20 19:00 07:00 Intake Total 760 ml 670 ml Output Total 500 ml 500 ml Balance 260 ml 170 ml Free Water 160 ml 120 ml Tube Feeding 600 ml 550 ml Output Urine Total 500 ml 500 ml # Voids 1 # Bowel Movements 2 3 Current Medications Medications (Trade) Dose Ordered Sig/Dennis Route PRN Reason Start Time Stop Time Status Last Admin Dose Admin Acetaminophen (Tylenol) 650 mg Q4H PRN GT Mild Pain (Pain Scale 1-3) 05/02/20 08:45 06/01/20 08:44 05/08/20 20:28 Acetaminophen/ Hydrocodone Bitart ([place] 5/325) 1 tab Q4H PRN GT For Pain 05/09/20 16:30 05/16/20 11:59 05/14/20 22:37 Amlodipine Besylate (Norvasc) 2.5 mg BID GT 05/02/20 18:00 06/02/20 08:59 05/15/20 08:11 Ceftriaxone Sodium 1 gm/ Dextrose 50 ml @ 100 mls/hr Q24H IVPB 05/13/20 17:00 05/20/20 16:59 05/14/20 17:23 Chlorhexidine Gluconate (Marlen-Hex 2%) 1 applic DAILY@2000 TOPIC 03/30/20 20:00 06/28/20 19:59 05/14/20 20:08 Enoxaparin Sodium (Lovenox) 80 mg EVERY 12 HOURS SUBQ 04/06/20 21:00 07/05/20 20:59 05/15/20 08:12 Famotidine (Pepcid) 20 mg Q12HR PRN GT HEARTBURN 05/08/20 13:15 06/01/20 15:14 05/13/20 08:52 Hydralazine HCl (Apresoline) 10 mg Q4H PRN IV For High Blood Pressure 03/30/20 12:15 06/28/20 12:14 05/11/20 14:37 Ipratropium [place] (Atrovent) 500 mcg Q6H PRN HHN Shortness of Breath 05/11/20 16:14 05/16/20 16:13 05/12/20 22:10 Lansoprazole (Prevacid) 30 mg DAILY GT 05/02/20 09:00 06/01/20 08:59 05/15/20 08:11 Lorazepam (Ativan) 1 mg Q6H PRN GT For Anxiety 05/13/20 08:45 05/16/20 20:44 05/15/20 08:11 Metronidazole (Flagyl) 500 mg Q8HR ORAL 05/13/20 22:00 05/20/20 21:59 05/15/20 06:26 Prednisone (predniSONE) 5 mg DAILY GT 05/13/20 09:00 06/05/20 08:59 05/15/20 08:11 Quetiapine Fumarate (SEROqueL) 50 mg EVERY 8 HOURS GT 05/13/20 14:00 06/11/20 11:59 05/15/20 06:26 Laboratory Tests 05/15/20 05:12: White Blood Count 7.6, Red Blood Count 3.76L, Hemoglobin 10.8L, Hematocrit 33.8L , Mean Corpuscular Volume 90, Mean Corpuscular Hemoglobin 28.6, Mean Corpuscular Hemoglobin Concent 31.8L, Red Cell Distribution Width 15.1H, Platelet Count 402, Mean Platelet Volume 6.2L, Neutrophils (%) (Auto) 76.3H, Lymphocytes (%) (Auto) 14.2L, Monocytes (%) (Auto) 5.7, Eosinophils (%) (Auto) 3.0, Basophils (%) (Auto) 0.8, Sodium Level 139, Potassium Level 4.1, Chloride Level 101, Carbon Dioxide Level 35H, Anion Gap 3L, Blood Urea Nitrogen 25H, Creatinine 0.5L, Estimat Glomerular Filtration Rate > 60, Glucose Level 115H, Calcium Level 9.1 Height (Feet): 5 Height (Inches): 10.00 Weight (Pounds): 243 General Appearance: no apparent distress EENT: other - Trach to vent Cardiovascular: tachycardia Respiratory/Chest: decreased breath sounds Abdomen: distended Rubin Cooper MD May 15, 2020 11:00
[2020-05-15] MEDS: HYDROcodone/Acetamin 5/325 tab GT PRN ×3 (11:10→22:13)
--- NOTE | 2020-05-15 11:35 | NUR ---
PT EVALUATION NOTE Patient seen for initial evaluation and treatment initiated. Patient presents with weakness and painful extremities, on trach to vent. Patient dependent with all mobility. Patient has limited ROM and strength LUE and BLEs due to pain. Patient will benefit from trial of skilled inpatient PT intervention to increase ROM and strength all four extremities and to initiate mobility activities as patient is weaned from ventilator. Recommend discharge to subacute facility once medically cleared by MD. Addendum: 05/15/20 at 1324 by RICCARDO WILSON PT Amended: Links added.
--- NOTE | 2020-05-15 11:46 | NUR ---
Vision Specialist: pt is on trach collar with FIO2 60%, Will continue to close monitoring.
--- NOTE | 2020-05-15 11:50 | NUR ---
Respiratory note: Per Dr Mata order. PT was placed on T-Piece @ 10 Lpm / 60% FiO2. Afsoon RN aware. PT is tolerating T-Piece well at this time. No s/s of respiratory distress or SOB noted at this time. Will continue to closely monitor.
[2020-05-15 11:59] VITALS: BP 135/75
[2020-05-15] MEDS ORDERED: Lidocaine 1% MPF 10mg/ml 5ml HHN SCH (12:00)
--- NOTE | 2020-05-15 12:12 | Discharge Summary ---
Discharge Summary Discharge Summary _ Date of admission: 04/27/2020 Date of discharge: 05/12/[address] Ledesma History of Present Illness and Brief Hospital Course Mr. Ponce is a 79-year-old male with past medical history of protein calorie malnutrition, thalassemia, hypertension, chronic pancreatitis, dyslipidemia, atherosclerosis, GERD, acquired complex renal cyst, peripheral neuropathy, colonic polyps, and major depression, who presented from [facility] for evaluation of altered mental status. Patient had GCS of 8, and agonal respirations. The POLST form dating 04/13/20 for DNR/DNI was noted but there was no MD signature and therefore it was incomplete and invalid. Patient was hypoxic with thready pulse. Patient went pulseless on transfer from [facility] to ER [facility] and therefore high-quality CPR was initiated and performed via ACLS guidelines. Patient was noted to be in pulseless V. tach. Patient achieved ROSC after the administration of amiodarone, epinephrine, bicarb, calcium and magnesium. Patient was intubated with RSI for respiratory failure and was started on Levophed drip via right IJ central line for vasopressor support. Propofol drip was used for sedation. Bedside echocardiogram showed a depressed ejection fraction and ventricular ectopy. There was no radiographic evidence of tamponade or pericardial effusion. EKG showed sinus tachycardia. Labs showed a lactic/metabolic acidosis, renal failure, and pancytopenia. Patient was noted to have elevated BNP but troponin is negative. Chest x-ray showed bibasilar atelectasis versus effusions versus pneumonia. COVID-19 rapid test was negative. Sepsis bundle was initiated on arrival. Patient was started on empiric antibiotics. Patient was admitted to the hospital for further care and evaluation. Soon after admission, patient's brother was contacted who requested the CODE STATUS to be DNR. Given clinical presentation consistent with anoxic encephalopathy, EEG was ordered. EEG revealed short waves consistent with seizure activity. CT of head demonstrated no evidence of acute intracranial hemorrhage, mass-effect or cortical edema. Patient was started on Keppra. Patient was continued on antibiotics given lactic acidosis and leukocytosis. Sputum culture showed growth of Klebsiella pneumoniae and Staph aureus. Antibiotics were adjusted accordingly. Given thrombocytopenia, patient was transfused with platelets. Given worsening renal failure, dialysis catheter was placed. Patient was dialyzed at regular intervals. Given the distended abdomen, patient underwent abdominal CT which showed large volume ascites, bilateral pleural effusions, and extensive bilateral lower lobe consolidation, likely pneumonia. Patient underwent paracentesis and 5.2 L of fluid was removed. Throughout his hospitalization, patient was treated for sepsis, and ascites. Patient was stabilized and was transferred to [place] for insurance purposes. Consultants: Neurology Nina Zafar NP Gastroenterology Dr. Quintero Surgery Dr. Rausch Pulmonology Dr. Mata Nephrology Dr. Mccullough Infectious disease Dr. Sexton Hematology oncology Dr. Javed Discharge Condition Stable Final diagnoses Thrombocytopenia Leukocytosis Anemia due to chronic disease Anoxic encephalopathy Acute hypoxemic respiratory failure Staph epidermidis bacteremia Lactic acidosis Thalassemia Pancytopenia Hyperlipidemia Hypertension Depression Respiratory acidosis Acute kidney injury Cardiopulmonary arrest Septic shock Ascites CKD History of GERD I have been assigned to dictate discharge summary for this account. Edilson Marinelli May 15, 2020 12:12
--- NOTE | 2020-05-15 12:13 | NUR ---
INSURANCE CLINCALS FAXED TO [employer] T: [phone] #1 F: [phone] AND ALFRED AGENCY SERVICE COORDINATOR:JACQUELINE JAMES
--- NOTE | 2020-05-15 13:08 | General Progress Note ---
Subjective ROS Limited/Unobtainable: No Allergies: Coded Allergies: No Known Allergies (Unverified , 02/05/20) Objective Last 24 Hour Vital Signs Date Time Temp Pulse Resp B/P (MAP) Pulse Ox O2 Delivery O2 Flow Rate FiO2 05/15/20 12:36 117 28 97 T-Piece 10.0 60 118 25 60 05/15/20 11:59 97.9 116 25 135/75 (95) 94 05/15/20 11:50 94 T-Piece 10.0 60 05/15/20 11:50 115 25 60 05/15/20 11:47 Mechanical Ventilator 05/15/20 11:45 10.0 60 05/15/20 11:44 60 05/15/20 11:28 104 26 35 05/15/20 11:25 109 05/15/20 08:48 99 27 35 05/15/20 08:41 100 24 135/83 95 05/15/20 08:11 91 24 149/87 97 05/15/20 08:11 91 149/87 05/15/20 08:00 97.2 91 24 149/87 (107) 97 05/15/20 07:54 35 05/15/20 07:44 Mechanical Ventilator 05/15/20 07:30 93 05/15/20 07:00 94 19 35 05/15/20 04:00 Mechanical Ventilator 05/15/20 04:00 40 05/15/20 04:00 98.2 94 23 138/81 (100) 97 05/15/20 04:00 90 05/15/20 03:27 108 27 40 05/15/20 00:00 97.4 96 23 126/78 (94) 99 05/15/20 00:00 40 05/15/20 00:00 90 05/15/20 00:00 Mechanical Ventilator 05/14/20 23:07 97.7 05/14/20 22:57 99 23 40 05/14/20 20:00 99 05/14/20 20:00 Mechanical Ventilator 05/14/20 20:00 97.7 99 18 126/81 (96) 99 05/14/20 20:00 40 05/14/20 19:29 98 25 40 05/14/20 17:17 98 110/73 05/14/20 16:00 97.3 98 18 110/73 (85) 99 05/14/20 16:00 Mechanical Ventilator 05/14/20 16:00 95 05/14/20 16:00 40 05/14/20 15:55 103 23 40 Intake and Output 05/14/20 05/15/20 19:00 07:00 Intake Total 760 ml 670 ml Output Total 500 ml 500 ml Balance 260 ml 170 ml Free Water 160 ml 120 ml Tube Feeding 600 ml 550 ml Output Urine Total 500 ml 500 ml # Voids 1 # Bowel Movements 2 3 Laboratory Tests 05/15/20 05:12: White Blood Count 7.6, Red Blood Count 3.76L, Hemoglobin 10.8L, Hematocrit 33.8L , Mean Corpuscular Volume 90, Mean Corpuscular Hemoglobin 28.6, Mean Corpuscular Hemoglobin Concent 31.8L, Red Cell Distribution Width 15.1H, Platelet Count 402, Mean Platelet Volume 6.2L, Neutrophils (%) (Auto) 76.3H, Lymphocytes (%) (Auto) 14.2L, Monocytes (%) (Auto) 5.7, Eosinophils (%) (Auto) 3.0, Basophils (%) (Auto) 0.8, Sodium Level 139, Potassium Level 4.1, Chloride Level 101, Carbon Dioxide Level 35H, Anion Gap 3L, Blood Urea Nitrogen 25H, Creatinine 0.5L, Estimat Glomerular Filtration Rate > 60, Glucose Level 115H, Calcium Level 9.1 Height (Feet): 5 Height (Inches): 10.00 Weight (Pounds): 243 General Appearance: no apparent distress Neck: supple Cardiovascular: normal rate Respiratory/Chest: decreased breath sounds Abdomen: normal bowel sounds, non tender, soft Extremities: non-tender Assessment/Plan Status: stable, unchanged Assessment/Plan: hep c + but neg RNA GTF reglan 10 mg tolerating TF repeat labs fu LFTS>>>improving pepcid iv will fu Da Quintero MD May 15, 2020 13:08
--- NOTE | 2020-05-15 13:48 | NUR ---
TRAFFIC [employer] SYSTEM DISPATCHER NOTES PLACED A CALL TO LIONEL MCDONALD FROM [employer]. MESSAGE LEFT. WILL FOLLOW UP. Addendum: 05/15/20 at 1417 by NATTY CLEMONS RN RECEIVED A CALL FROM LIONEL FROM [employer] SHE IS WORKING WITH [employer] FROM [employer] FOR [employer]EMENT. LIONEL WILL NOTIFY ME WITHIN 48 HOURS OF PLACEMENT FOUND. PT WILL NEED A COVID.
--- NOTE | 2020-05-15 14:31 | Surgery Progress Note ---
Surgery Progress Note Subjective Procedure Performed tracheostomy Additional Comments improved d/c plan for possible today no n/v okay to plan trach collar then decannulate when ready Objective Last 24 Hour Vital Signs Date Time Temp Pulse Resp B/P (MAP) Pulse Ox O2 Delivery O2 Flow Rate FiO2 05/15/20 12:36 117 28 97 T-Piece 10.0 60 118 25 60 05/15/20 11:59 97.9 116 25 135/75 (95) 94 05/15/20 11:50 94 T-Piece 10.0 60 05/15/20 11:50 115 25 60 05/15/20 11:47 Mechanical Ventilator 05/15/20 11:45 10.0 60 05/15/20 11:44 60 05/15/20 11:28 104 26 35 05/15/20 11:25 109 05/15/20 08:48 99 27 35 05/15/20 08:41 100 24 135/83 95 05/15/20 08:11 91 24 149/87 97 05/15/20 08:11 91 149/87 05/15/20 08:00 97.2 91 24 149/87 (107) 97 05/15/20 07:54 35 05/15/20 07:44 Mechanical Ventilator 05/15/20 07:30 93 05/15/20 07:00 94 19 35 05/15/20 04:00 Mechanical Ventilator 05/15/20 04:00 40 05/15/20 04:00 98.2 94 23 138/81 (100) 97 05/15/20 04:00 90 05/15/20 03:27 108 27 40 05/15/20 00:00 97.4 96 23 126/78 (94) 99 05/15/20 00:00 40 05/15/20 00:00 90 05/15/20 00:00 Mechanical Ventilator 05/14/20 23:07 97.7 05/14/20 22:57 99 23 40 05/14/20 20:00 99 05/14/20 20:00 Mechanical Ventilator 05/14/20 20:00 97.7 99 18 126/81 (96) 99 05/14/20 20:00 40 05/14/20 19:29 98 25 40 05/14/20 17:17 98 110/73 05/14/20 16:00 97.3 98 18 110/73 (85) 99 05/14/20 16:00 Mechanical Ventilator 05/14/20 16:00 95 05/14/20 16:00 40 05/14/20 15:55 103 23 40 I&O Intake and Output 05/14/20 05/15/20 19:00 07:00 Intake Total 760 ml 670 ml Output Total 500 ml 500 ml Balance 260 ml 170 ml Free Water 160 ml 120 ml Tube Feeding 600 ml 550 ml Output Urine Total 500 ml 500 ml # Voids 1 # Bowel Movements 2 3 Dressing: other Wound: other Cardiovascular: RSR Respiratory: decreased breath sounds Abdomen: soft, flat, non-tender, present bowel sounds, non-distended Extremities: no edema, no tenderness, no cyanosis Laboratory Tests Test 05/15/20 05:12 White Blood Count 7.6 K/UL (4.8-10.8) Red Blood Count 3.76 M/UL (4.70-6.10) L Hemoglobin 10.8 G/DL (14.2-18.0) L Hematocrit 33.8 % (42.0-52.0) L Mean Corpuscular Volume 90 FL (80-99) Mean Corpuscular Hemoglobin 28.6 PG (27.0-31.0) Mean Corpuscular Hemoglobin Concent 31.8 G/DL (32.0-36.0) L Red Cell Distribution Width 15.1 % (11.6-14.8) H Platelet Count 402 K/UL (150-450) Mean Platelet Volume 6.2 FL (6.5-10.1) L Neutrophils (%) (Auto) 76.3 % (45.0-75.0) H Lymphocytes (%) (Auto) 14.2 % (20.0-45.0) L Monocytes (%) (Auto) 5.7 % (1.0-10.0) Eosinophils (%) (Auto) 3.0 % (0.0-3.0) Basophils (%) (Auto) 0.8 % (0.0-2.0) Sodium Level 139 MMOL/L (136-145) Potassium Level 4.1 MMOL/L (3.5-5.1) Chloride Level 101 MMOL/L (98-107) Carbon Dioxide Level 35 MMOL/L (21-32) H Anion Gap 3 mmol/L (5-15) L Blood Urea Nitrogen 25 mg/dL (7-18) H Creatinine 0.5 MG/DL (0.55-1.30) L Estimat Glomerular Filtration Rate > 60 mL/min (>60) Glucose Level 115 MG/DL (74-106) H Calcium Level 9.1 MG/DL (8.5-10.1) Plan Problems: (1) Pneumonia (2) Staphylococcus aureus bacteremia (3) COVID-19 virus infection Assessment & Plan: prior now neg improving (4) Chest pain (5) Hypertension (6) Dehydration (7) Electrolyte imbalance (8) DMII (diabetes mellitus, type 2) (9) Protein malnutrition Assessment & Plan: DAILY ESTIMATED NEEDS: Needs based on Critical care, wound 81kg abw 22-28 kcals/kg 0739-1600 total kcals 1.25-2 g protein/kg 101-162 g total protein 25-30 mL/kg 6810-1766 total fluid mLs NUTRITION DIAGNOSIS: * Increased kcal/prot/micronutrients needs R/T wound healing as evidenced by pt w/ new multiple pressure injuries, 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 * Inadequate oral intake R/T clinical and respiratory status as evidenced by COVID-19 ++, on continuous BIPAP, prolonged meal refusals, pt is now on TPN, pt orally intubated (03/28), s/p trach placement (04/26), and s/p PEG placement (04/27), now on GT feeds. * Decreased sodium and fat needs r/t HTN and obesity as evidenced by pt w/ cardiac history, elev BP (159/98-> now improved, on BP meds and diuretics), BMI >30, obese per guidelines. (INACTIVE) CURRENT TF:Glucerna 1.5 goal of 50 + Prosource BID ENTERAL NUTRITION RECOMMENDATIONS: Glucerna 1.5 @ 50ml/hr x 24 hrs + Prosource 1pkt BID to provide 1200ml, 1800kcal, 99g +22g prot (121g total prot), 926ml free water * Maintain current TF order * Con't Prosource 1pkt BID (additional 22g prot) to better meet est prot needs. ADDITIONAL RECOMMENDATIONS: 1) Maintain calibrated bedscale wts 2) Monitor BGs closely w/ Solumedrol (POC glu wnl at this time) 3) Monitor lytes, replete as needed 4) Monitor TF tolerance: PEG placed 04/28, cont to increase TF to goal as tolerated 5) Wound healing: Add Michael BID (mix w/ 2-4oz of water) TF @ goal provides 100% RDI, add Vit C 500mg QD, ZnSO4 220mg [id number] (10) Respiratory insufficiency Assessment & Plan: 64-year-old male with respiratory insufficiency intubated in an intensive care unit. Patient has been unable to safely wean off ventilatory support. Surgery called to evaluate for tracheostomy. After careful evaluation patient is a candidate for tracheostomy. In the meantime will obtain consent. If consent obtained will proceed with scheduling. Thank you for your participation's care will follow recommendations improving trach okay agitated weaning sedation no n/v cont weaning transition to oral meds via g tube get off drips improving downgraded weaning well more alert and awake responsive will need placement trach collar consideration pending sub acute placement okay for placement cont trach care leave sutures in place as dissolvable recovering well fully awake now tolerating diet d/c planning awaiting placement Booker Rausch May 15, 2020 14:31
--- NOTE | 2020-05-15 15:55 | Diagnostic Imaging Report ---
Indications: Altered level of consciousness Technique: Spiral acquisitions obtained through the brain. Angled axial and coronal 5 x 5 mm slices were reconstructed. Total dose length product 1021 mGycm. CTDI vol(s) 53 mGy. Dose reduction achieved using automated exposure control Comparison: None. Findings: There is mild frontal cortical volume loss. The ventricles are normal in size. There is mild periventricular deep white matter low-attenuation, likely on the basis of chronic microvascular ischemic change. Otherwise normal mata-white differentiation. No acute intracranial hemorrhage nor edema. No mass effect nor midline shift. Visualized orbits and are unremarkable. The included upper neck demonstrates extensive cervical soft tissue emphysema, also reported on recent chest radiograph. There is some bilateral mastoid opacification Impression: Negative for acute intracranial bleed or mass effect Mild frontal cortical volume loss Cervical soft tissue emphysema, also reported on recent chest radiograph The CT scanner at [facility] is accredited by the [employer] and the scans are performed using protocols designed to limit radiation exposure to as low as reasonably achievable to attain images of sufficient resolution adequate for diagnostic evaluation.
[2020-05-15 16:00] VITALS: BP 150/87
--- NOTE | 2020-05-15 16:00 | NUR ---
RESPIRATORY NOTE: ABG drawn at this time. Results reported to Zenaida MATHEW.
--- NOTE | 2020-05-15 17:00 | NUR ---
NURSE NOTES: Dr Mata notified regarding ABG result, waiting to call back. will continue close monitoring.
[2020-05-15] MEDS: cefTRIAXone 1 GM in D5W 50 ML IVPB SCH (17:06)
[2020-05-15] MEDS ORDERED: cefTRIAXone 1 GM in D5W 50 ML IVPB SCH (18:30)
--- NOTE | 2020-05-15 18:49 | Infectious Diseases Prog Note ---
Assessment/Plan Assessment/Plan ASSESSMENT AND PLAN: 1. hx staph aureus bacteremia/mssa - s/p tx covid-19 +, hypoxia, sob, chest x-ray worse, ? PE, ? HCAP/aspiration pna trach/vent ? fungal uti, low grade fevers diarrhea - c.diff. negative pneumomediastinum, chest x-ray infiltrates worse - ? new hcap/aspiration pna gram neg uti/fungal uti, + urinalysis - change to vancomycin, cefepime, flagyl and diflucan - f/u on sputum culture, urine culture, blood cultures - monitor labs and chest x-ray - pulmonary f/u 2. covid-19 isolation removed - covid-19 recovered 3. Hypertension history. Blood pressure treatment primary care team. 4. Elevated blood sugars. Blood sugar treatment per primary care team. 5. No known drug allergies. 6. Social history is positive for smoking. 7. Family history is noncontributory. 8. MAR was noted. 9. Case was discussed with RN. 10. Continue treatment per primary consultants. Subjective Constitutional: Reports: other - + trach collar ; Denies: fever HEENT: Denies: congestion Respiratory: Denies: shortness of breath Cardiovascular: Denies: chest pain Gastrointestinal/Abdominal: Denies: nausea, vomiting, diarrhea Genitourinary: Reports: other Psychiatric: Denies: depression Skin: Denies: rash Hematologic: Denies: bleeding Musculoskeletal: Denies: pain Allergies: Coded Allergies: No Known Allergies (Unverified , 02/05/20) Objective Last 24 Hour Vital Signs Date Time Temp Pulse Resp B/P (MAP) Pulse Ox O2 Delivery O2 Flow Rate FiO2 05/15/20 17:25 116 24 60 05/15/20 17:06 115 150/87 05/15/20 16:00 97.7 115 22 150/87 (108) 95 05/15/20 16:00 Mechanical Ventilator 05/15/20 16:00 10.0 60 05/15/20 15:21 116 05/15/20 14:50 115 25 60 05/15/20 12:36 117 28 97 T-Piece 10.0 60 118 25 60 05/15/20 11:59 97.9 116 25 135/75 (95) 94 05/15/20 11:50 94 T-Piece 10.0 60 05/15/20 11:50 115 25 60 05/15/20 11:47 Mechanical Ventilator 05/15/20 11:45 10.0 60 05/15/20 11:44 60 05/15/20 11:28 104 26 35 05/15/20 11:25 109 05/15/20 08:48 99 27 35 05/15/20 08:41 100 24 135/83 95 05/15/20 08:11 91 24 149/87 97 05/15/20 08:11 91 149/87 05/15/20 08:00 97.2 91 24 149/87 (107) 97 05/15/20 07:54 35 05/15/20 07:44 Mechanical Ventilator 05/15/20 07:30 93 05/15/20 07:00 94 19 35 05/15/20 04:00 Mechanical Ventilator 05/15/20 04:00 40 05/15/20 04:00 98.2 94 23 138/81 (100) 97 05/15/20 04:00 90 05/15/20 03:27 108 27 40 05/15/20 00:00 97.4 96 23 126/78 (94) 99 05/15/20 00:00 40 05/15/20 00:00 90 05/15/20 00:00 Mechanical Ventilator 05/14/20 23:07 97.7 05/14/20 22:57 99 23 40 05/14/20 20:00 99 05/14/20 20:00 Mechanical Ventilator 05/14/20 20:00 97.7 99 18 126/81 (96) 99 05/14/20 20:00 40 05/14/20 19:29 98 25 40 Height (Feet): 5 Height (Inches): 10.00 Weight (Pounds): 243 General Appearance: no acute distress HEENT: normocephalic, atraumatic, anicteric, status post trach, other - + trach collar Respiratory/Chest: crackles/rales, rhonchi - bilaterally Cardiovascular: normal rate, regular rhythm, no gallop/murmur, no JVD Abdomen: normal bowel sounds, soft, non tender, no organomegaly, non distended Genitourinary: other - + joseph Extremities: no cyanosis Skin: no rash Neurologic/Psychiatric: sandblaster stone II-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 The infiltrates are typical for Covid 19. No evidence of pulmonary embolus. CT abdomen and pelvis: IMPRESSION: 1. Scattered hepatic hypodense lesions, too small to characterize on this examination without intravenous contrast. 2. Colonic diverticulosis without evidence of acute diverticulitis. 3. Scattered enlarged mesenteric lymph nodes, presumably reactive. teral pneumonia. The infiltrates are typical for Covid 19. No evidence of pulmonary embolus. Chest x-ray - 12/19/19 - Indication: Shortness of breath Technique: One view of the chest Comparison: 02/17/2020 Findings: Interim worsening of bilateral infiltrates, particularly on the right. The heart is borderline enlarged. The pleural spaces are clear. Left arm PICC is again demonstrated Impression: Worsening bilateral infiltrates over one day, likely pneumonia CT chest - 02/19/20 - IMPRESSION: Increased extensive patchy ground-glass opacities and densities throughout the lungs, suggestive of Covid 19 infection. Chest x-ray 02/23/20 - Procedure: XRAY Chest 1v As Indication: Reason For Exam: INFECT Technique: One view of the chest Comparison: 02/20/2020 Findings: Allowing for differences in exposure technique, bilateral mid and lower lung infiltrates are probably unchanged. The heart size is normal. The pleural spaces are clear. Impression: Unchanged, over 4 days, findings as above. Chest x-ray - 02/25/20 - FINDINGS: Lungs: Interval slightly worsening bilateral airspace disease. Pleural space: Unremarkable. No pneumothorax. Heart: Unremarkable. No cardiomegaly. Mediastinum: Unremarkable. Bones/joints: Unremarkable. IMPRESSION: Interval slightly worsening bilateral airspace disease. Chest x-ray - 03/02/20 - Procedure: XRAY Chest 1v Indication: Shortness of breath Technique: One view of the chest Comparison: 02/25/2020 Findings: Bilateral interstitial and airspace infiltrates are unchanged. The heart size is normal. Left arm PICC is again demonstrated Impression: Unchanged, over one day, findings as above. Chest x-ray - 03/06/20 - Procedure: XRAY Chest 1v Indication: Shortness of breath Technique: One view of the chest Comparison: 03/02/2020 Findings: Bilateral infiltrates are unchanged. Normal heart size. Pleural spaces are clear Chest x-ray - 03/12/10 - Impression: COMPARISON: Chest radiograph March 06, 2020. FINDINGS/IMPRESSION: Improving basilar infiltrates. Follow chest radiograph recommended. The upper lung finley are clear. No pneumothorax. Stable cardiomegaly. Stable left upper extremity PICC line. anged, over 4 days, findings as above. Chest x-ray - 03/17/20 - Procedure: XRAY Chest 1v Indication: Shortness of breath Technique: One view of the chest Comparison: 03/12/2020 Findings: Left arm PICC is again demonstrated. Infiltrates are unchanged. The heart size is upper limits of normal. Impression: Unchanged, over 5 days, findings as above. Abdominal US - IMPRESSION: 1. Gallbladder is normal. 2. Hepatic steatosis. 3. 1.7 cm cyst right kidney. Impression. Chest x-ray - Procedure: XRAY Chest 1v Indication: Shortness of breath Technique: One view of the chest Comparison: 03/17/2020 Findings: Bilateral right greater than left infiltrates again demonstrated. The heart size is normal. There is a left arm PICC in good position. Impression: Unchanged, over 5 days, findings as above. Chest x-ray - 03/29/20 - Procedure: XRAY Chest 1v Indication: Cough Technique: One view of the chest Comparison: 03/28/2020 Findings: Bilateral infiltrates are unchanged or slightly worse, allowing for differences in exposure technique. The pleural spaces are clear. The heart size is normal. Stable satisfactory position of endotracheal tube, left arm PICC. Orogastric tube has retracted somewhat the position remains satisfactory. Impression: Stable to slightly worse bilateral infiltrates. 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 Interim advancement of orogastric tube as well. Bilateral infiltrates are unchanged. Left arm PICC remains Impression: Improved and now satisfactory tube positions as described. ICU nurse Maeve notified at the time of interpretation Chest x-ray - 04/02/20 - COMPARISON: Chest x-rays dated 03/31/20 and 03/12/20. FINDINGS: Lungs: No significant change in bilateral prominent interstitial markings. The lungs are otherwise clear without focal consolidation. Pleural space: Unremarkable. The costophrenic angles are sharp. No visible pneumothorax. Heart: Unremarkable. No cardiomegaly. Mediastinum: Unremarkable. Bones/joints: Unremarkable. Tubes, lines and devices: Endotracheal tube tip 6.5 cm above the sunny. NG tube tip in the distal stomach. Telemetry leads overlie the thorax. IMPRESSION: No significant change in bilateral prominent interstitial markings. Procedure: XRAY Chest 1v Procedure: XRAY Chest 1v Reason for study: Shortness of breath 04/06/20 - Comparison films: 04/02/2020. FINDINGS: Endotracheal tube and NG tube remain in place. There is worsening of right basilar infiltrates. Some haziness in left lung base unchanged. Cardiac and mediastinal silhouette are within normal limits. CP angles are sharp. The bony thorax appear unremarkable. IMPRESSION: Worsening of right basilar infiltrate. Chest x-ray - 04/09/20 - Procedure: XRAY Chest 1v FILM CXR 1 VIEW INDICATION: Infection COMPARISON: April 05, 2020 FINDINGS: Single frontal view demonstrates a normal cardiomediastinal silhouette. Endotracheal tube in place with tip above the sunny. Elevation of the right hemidiaphragm. Interstitial prominence with bilateral lower lobe infiltrates. Lung bases appear worse from the prior exam. Small right effusion. Right-sided PICC line with tip in the superior vena cava. Enteric tube in place. IMPRESSION: Interstitial prominence and bilateral lower lobe pneumonia with worsening appearance from the prior study. Chest x-ray - 04/12/20 - Procedure: XRAY Chest 1v Indication: Shortness of breath Technique: One view of the chest Comparison: 04/09/2020 Findings: Stable satisfactory tube and line positions. Bilateral infiltrates have worsened slightly since prior study. The heart size is normal. Impression: Worsening bilateral infiltrates, over 3 days Chest x-ray - 04/15/20 - COMPARISON: 02/11/21. FINDINGS: Lungs: There is been no significant change in mild to moderate patchy diffuse bilateral alveolar infiltrates which are most prominent in the lung bases. Pleural space: Unremarkable. No pneumothorax. Heart: Unremarkable. No cardiomegaly. Mediastinum: Unremarkable. Bones/joints: Unremarkable. Tubes, lines and devices: There is an endotracheal tube, right-sided PICC line and NG tube in good position. IMPRESSION: There is been no significant change in mild to moderate patchy diffuse bilateral alveolar infiltrates which are most prominent in the lung bases. Chest x-ray - 04/18/20 - Procedure: XRAY Chest 1v Indication: Cough Technique: One view of the chest Comparison: 04/15/2020 Findings: Less optimal inspiration currently than previously. Stable satisfactory positions of endotracheal and orogastric tubes and right arm PICC. Bilateral infiltrates are again demonstrated, unchanged. Impression: Unchanged, over 3 days, findings as above. Chest x-ray - 04/21/20 - Procedure: XRAY Chest 1v Indication: Dyspnea Technique: One view of the chest Comparison: 04/18/2020 Findings: Stable tube and line positions. Bilateral infiltrates are unchanged Impression: Unchanged, over one day, findings as above. Procedure: XRAY Chest 1v Procedure: XRAY Chest 1v Reason for study: Reason For Exam: SOB Chest x-ray - 04/25/20 - Comparison films: 04/21/2020. FINDINGS: Endotracheal tube, NG tube and right PICC line remain in place. Vascularity is normal. Bilateral infiltrates are unchanged. Cardiac and mediastinal silhouette are within normal limits. CP angles are sharp. The bony thorax appear unremarkable. IMPRESSION: NO SIGNIFICANT CHANGE COMPARED TO PREVIOUS EXAM. Chest x-rasy - 04/30/20 - FINDINGS: Lungs: Bilateral patchy pulmonary opacities concerning for pneumonia, not significantly changed compared to the prior chest x-ray. Pleural space: Unremarkable. The costophrenic angles are sharp. No visible pneumothorax. Heart: Unremarkable. No cardiomegaly. Mediastinum: Unremarkable. Bones/joints: Unremarkable. Tubes, lines and devices: Tracheostomy tube in place, with expected positioning. Telemetry leads overlie the thorax. Right arm PICC with catheter tip in the SVC region. IMPRESSION: Bilateral patchy pulmonary opacities concerning for pneumonia, not significantly changed compared to the prior chest x-ray. Chest x-ray - 05/12/20 - Procedure: XRAY Chest 1v Procedure: XRAY Chest 1v Reason for study: Shortness of breath. Comparison films: 04/30/2020. FINDINGS: Tracheostomy and right PICC line remain in place. There is new pneumomediastinum as well as subcutaneous cutaneous emphysema noted in the right supraclavicular region. Slight increase in diffuse bilateral alveolar densities likely worsening infiltrates and/or edema. Cardiac and mediastinal silhouette are within normal limits. CP angles are sharp. The bony thorax appear unremarkable. IMPRESSION: Slight worsening of bilateral basilar densities, infiltrates and/or edema. New pneumomediastinum and subcutaneous cutaneous air in the right supraclavicular region. Chest x-rasy - 05/15/20 - Procedure: XRAY Chest 1v EXAM: XR Chest, 1 View CLINICAL HISTORY: INFECT TECHNIQUE: Frontal view of the chest. COMPARISON: 05/12/20 FINDINGS: Since the prior examination, there is marked increase in pneumomediastinum as well as soft tissue gas to the chest wall and supraclavicular regions, right greater than left. Redemonstrated appropriately positioned tracheostomy. Tip of right arm PICC is in the SVC. No clear pneumothorax given limitations due to overlying chest wall gas. Extensive bilateral interstitial and airspace infiltrates appear similar to the prior examination, but suspect slight progression in the left upper lobe. IMPRESSION: Increasing pneumomediastinum and chest wall gas. Extensive bilateral pulmonary infiltrates, progressed in the left upper lobe. Microbiology Date/Time Source Procedure Growth Status 05/14/20 07:00 Urine,Clean Catch Urine Culture - Preliminary Gram Negative Zackary YEAST Resulted 04/29/20 19:00 Blood Blood Culture - Final NO GROWTH AFTER 5 DAYS Complete 04/14/20 16:35 Stool Clostridium difficile Toxin Assay - Final Complete 04/12/20 08:40 Sputum Gram Stain - Final Complete 04/12/20 08:40 Sputum Sputum Culture - Final NORMAL UPPER RESPIRATORY WILIAM AT 48 ... Complete Microbiology Date/Time Source Procedure Growth Status 05/14/20 07:00 Urine,Clean Catch Urine Culture - Preliminary Gram Negative Zackary YEAST Resulted Laboratory Tests Test 05/15/20 05:12 05/15/20 15:14 White Blood Count 7.6 K/UL (4.8-10.8) Red Blood Count 3.76 M/UL (4.70-6.10) L Hemoglobin 10.8 G/DL (14.2-18.0) L Hematocrit 33.8 % (42.0-52.0) L Mean Corpuscular Volume 90 FL (80-99) Mean Corpuscular Hemoglobin 28.6 PG (27.0-31.0) Mean Corpuscular Hemoglobin Concent 31.8 G/DL (32.0-36.0) L Red Cell Distribution Width 15.1 % (11.6-14.8) H Platelet Count 402 K/UL (150-450) Mean Platelet Volume 6.2 FL (6.5-10.1) L Neutrophils (%) (Auto) 76.3 % (45.0-75.0) H Lymphocytes (%) (Auto) 14.2 % (20.0-45.0) L Monocytes (%) (Auto) 5.7 % (1.0-10.0) Eosinophils (%) (Auto) 3.0 % (0.0-3.0) Basophils (%) (Auto) 0.8 % (0.0-2.0) Sodium Level 139 MMOL/L (136-145) Potassium Level 4.1 MMOL/L (3.5-5.1) Chloride Level 101 MMOL/L (98-107) Carbon Dioxide Level 35 MMOL/L (21-32) H Anion Gap 3 mmol/L (5-15) L Blood Urea Nitrogen 25 mg/dL (7-18) H Creatinine 0.5 MG/DL (0.55-1.30) L Estimat Glomerular Filtration Rate > 60 mL/min (>60) Glucose Level 115 MG/DL (74-106) H Calcium Level 9.1 MG/DL (8.5-10.1) Arterial Blood pH 7.403 (7.350-7.450) Arterial Blood Partial Pressure CO2 55.8 mmHg (35.0-45.0) *H Arterial Blood Partial Pressure O2 61.4 mmHg (75.0-100.0) L Arterial Blood HCO3 34.0 mmol/L (22.0-26.0) H Arterial Blood Oxygen Saturation 90.9 % (95-100) L Arterial Blood Base Excess 7.7 (-2-2) H Shemar Test Positive Current Medications Medications (Trade) Dose Ordered Sig/Dennis Route PRN Reason Start Time Stop Time Status Last Admin Dose Admin Acetaminophen (Tylenol) 650 mg Q4H PRN GT Mild Pain (Pain Scale 1-3) 05/02/20 08:45 06/01/20 08:44 05/08/20 20:28 Acetaminophen/ Hydrocodone Bitart (Weiser 5/325) 1 tab Q4H PRN GT For Pain 05/09/20 16:30 05/16/20 11:59 05/15/20 17:07 Amlodipine Besylate (Norvasc) 2.5 mg BID GT 05/02/20 18:00 06/02/20 08:59 05/15/20 17:06 Ceftriaxone Sodium 1 gm/ Dextrose 50 ml @ 100 mls/hr Q24H IVPB 05/13/20 17:00 05/20/20 16:59 05/15/20 17:06 Ceftriaxone Sodium 1 gm/ Dextrose 50 ml @ 100 mls/hr Q24H IVPB 05/15/20 18:30 05/22/20 18:29 UNV Chlorhexidine Gluconate (Marlen-Hex 2%) 1 applic DAILY@2000 TOPIC 03/30/20 20:00 06/28/20 19:59 05/14/20 20:08 Enoxaparin Sodium (Lovenox) 80 mg EVERY 12 HOURS SUBQ 04/06/20 21:00 07/05/20 20:59 05/15/20 08:12 Famotidine (Pepcid) 20 mg Q12HR PRN GT HEARTBURN 05/08/20 13:15 06/01/20 15:14 05/13/20 08:52 Fluconazole (Diflucan) 100 mg DAILY ORAL 05/16/20 09:00 05/23/20 08:59 UNV Hydralazine HCl (Apresoline) 10 mg Q4H PRN IV For High Blood Pressure 03/30/20 12:15 06/28/20 12:14 05/11/20 14:37 Ipratropium Arthur (Atrovent) 500 mcg Q6H PRN HHN Shortness of Breath 05/11/20 16:14 05/16/20 16:13 05/12/20 22:10 Lansoprazole (Prevacid) 30 mg DAILY GT 05/02/20 09:00 06/01/20 08:59 05/15/20 08:11 Lorazepam (Ativan) 1 mg Q6H PRN GT For Anxiety 05/13/20 08:45 05/16/20 20:44 05/15/20 08:11 Metronidazole (Flagyl) 500 mg Q8HR ORAL 05/13/20 22:00 05/20/20 21:59 05/15/20 13:17 Prednisone (predniSONE) 5 mg DAILY GT 05/13/20 09:00 06/05/20 08:59 05/15/20 08:11 Quetiapine Fumarate (SEROqueL) 50 mg EVERY 8 HOURS GT 05/13/20 14:00 06/11/20 11:59 05/15/20 13:17 Kisha Salazar MD May 15, 2020 18:49
--- NOTE | 2020-05-15 19:20 | NUR ---
NURSE NOTES: Pt report received from Zenaida MATHEW. pt remains stable/ asymptomatic. pt is alert and oriented times 4, no change in mentation. pt is showing ST on the monitor, doctor is aware, no cardiac abnormalities noted. pt is sating 98% O2 on T piece, no acute signs symptom of resp distress noted. pt bed is low, locked, armed, call light within reach, bed rails up times 3. will follow plan of care.
--- NOTE | 2020-05-15 19:22 | NUR ---
NURSE HAND-OFF REPORT: Important Events on Shift:pt is on T-Piece 10lit FIO2 60% from morning. Patient Status: Diet: Pending Orders: Pending Results/Labs: Pending MD notification: Latest Vital Signs: Temperature 97.7 , Pulse 116 , B/P 150 /87 , Respiratory Rate 24 , O2 SAT 95 , Mechanical Ventilator, O2 Flow Rate 10.0 . Vital Sign Comment: EKG Rhythm: Sinus Tachycardia Rhythm change?: N MD Notified?: Y -Dr Emperatrzi INTERIANO Response: Order Received& Read Back Latest Hassan Fall Score: 35 Fall Risk: Medium Risk Safety Measures: Call light Within Reach, Bed Alarm Zone 2, Side Rails Side Rails x3, Bed position Low and Locked. Fall Precautions: Yellow Socks Yellow Gown Door Sign Patient Fall Education Report given to . Pt is awake and stable, no stress note. Endorsed plan of care, endorsed to monitor SPO2 AND F/U sputum culture.
[2020-05-15 20:00] VITALS: BP 153/80
[2020-05-15] MEDS: Dyna-Hex 2% Top Sol 2oz TOPIC SCH (20:18)
[2020-05-15] MEDS: Vancomycin 750 MG in NS 275 ML IVPB SCH (20:19)
[2020-05-16] VITALS: BP 129/75
[2020-05-16] MEDS ORDERED: Augmentin 875mg Tab ORAL SCH
[2020-05-16] MEDS: HYDROcodone/Acetamin 5/325 tab GT PRN (02:38)
[2020-05-16 04:00] VITALS: BP 115/87
[2020-05-16] MEDS: Vancomycin 750 MG in NS 275 ML IVPB SCH ×2 (05:11→12:02)
[2020-05-16] MEDS: metroNIDAZOLE 250mg tab ORAL SCH (05:12)
[2020-05-16 06:06] LABS: HEMATOCRIT 32.9 % (42.0-52.0); MEAN CORPUSCULAR VOLUME 93 FL (80-99); PLATELET COUNT 398 K/UL (150-450); RED BLOOD COUNT 3.55 M/UL (4.70-6.10); RED CELL DISTRIBUTION WIDTH 15.6 % (11.6-14.8); WHITE BLOOD COUNT 15.5 K/UL (4.8-10.8)
--- NOTE | 2020-05-16 07:25 | NUR ---
NURSE NOTES: Received pt from RN Stephen Posada, pt is awake and alert, pt has trach to clotilde AC 18 TV 750 FIO2 40% PEEP 5, Pt has g tube in place is working well, pt has Brownlee cath in place is working well. pt has PICC ALBERT DOW. All needs attended, bed is locked and is in the lowest position, call light within easy reach. will continue to monitor.
--- NOTE | 2020-05-16 07:30 | NUR ---
NURSE HAND-OFF REPORT: Important Events on Shift:[NA] Patient Status: [stable] Diet: [tube feeding per doctor order] Pending Orders: [na] Pending Results/Labs:[na] Pending MD notification:[na] Latest Vital Signs: Temperature 97.5 , Pulse 112 , B/P 115 /87 , Respiratory Rate 28 , O2 SAT 98 , Mechanical Ventilator, O2 Flow Rate 10.0 . Vital Sign Comment: [stable] EKG Rhythm: Sinus Tachycardia Rhythm change?: N MD Notified?: Y -Dr Emperatriz INTERIANO Response: Order Received& Read Back Latest Hassan Fall Score: 35 Fall Risk: Medium Risk Safety Measures: Call light Within Reach, Bed Alarm Zone 2, Side Rails Side Rails x3, Bed position Low and Locked. Fall Precautions: Yellow Socks Yellow Gown Door Sign Patient Fall Education Report given to [Zenaida RN].
[2020-05-16 07:59] VITALS: BP 137/99
--- NOTE | 2020-05-16 08:09 | NUR ---
NURSE NOTES: Dr Weinberg notified regarding blood culture result and WBC 15.5, waiting to call back.
[2020-05-16 08:12] LABS: ALANINE AMINOTRANSFERASE 385 U/L (12-78); ALBUMIN 3.1 G/DL (3.4-5.0); ALBUMIN/GLOBULIN RATIO 0.8 (1.0-2.7); ALKALINE PHOSPHATASE 665 U/L (46-116); ANION GAP 8 mmol/L (5-15); ASPARTATE AMINO TRANSFERASE 583 U/L (15-37); BILIRUBIN,TOTAL 1.8 MG/DL (0.2-1.0); BLOOD UREA NITROGEN 24 mg/dL (7-18); CALCIUM 9.4 MG/DL (8.5-10.1); CARBON DIOXIDE 31 MMOL/L (21-32); CHLORIDE 100 MMOL/L (98-107); CREATININE 0.5 MG/DL (0.55-1.30); PHOSPHORUS 3.1 MG/DL (2.5-4.9); POTASSIUM 4.4 MMOL/L (3.5-5.1); SODIUM 139 MMOL/L (136-145)
[2020-05-16 08:14] LABS: BILIRUBIN,DIRECT 1.5 MG/DL (0.0-0.3)
--- NOTE | 2020-05-16 08:33 | NUR ---
NURSE NOTES: pt is vomiting and has abdominal pain, YENI Marinelli is on bed side and he is aware about blood culture result and WBC 15.5, YENI will F/U.Will continue close monitoring. Addendum: 05/16/20 at 0842 by Zenaida Murillo RN G TUBE FEEDING IS HOLD NOW.
--- NOTE | 2020-05-16 08:35 | NUR ---
RESPIRATORY NOTE: Pt is vomiting. Zenaida RN and Isis JAIME bedside. T-Piece trial on hold for today per Isis JAIME to prevent aspiration due to vomiting. Will continue to closely monitor.
--- NOTE | 2020-05-16 08:35 | NUR ---
PT NOTE Attempted to see patient for PT treatment. Patient with new onset vomiting and abdominal pain. Treatment held today per Edilson JAIME request. Zenaida MATHEW notified, will follow.
[2020-05-16] MEDS: LORazepam 1mg tab GT PRN (08:46)
--- NOTE | 2020-05-16 08:47 | Pulmonology Progress Note ---
Subjective ROS Limited/Unobtainable: No Interval Events: S/p tracheostomy 04/25/20; FiO2 35% Constitutional: Reports: other - + trach collar ; Denies: fever HEENT: Repors: no symptoms Respiratory: Reports: dry cough - improved, shortness of breath Cardiovascular: Reports: no symptoms Gastrointestinal/Abdominal: Reports: vomiting; Denies: nausea, diarrhea Psychiatric: Denies: depression Skin: Denies: rash Musculoskeletal: Denies: pain Allergies: Coded Allergies: No Known Allergies (Unverified , 02/05/20) Objective Last 24 Hour Vital Signs Date Time Temp Pulse Resp B/P (MAP) Pulse Ox O2 Delivery O2 Flow Rate FiO2 05/16/20 07:59 97.2 117 18 137/99 (112) 98 05/16/20 07:44 119 05/16/20 07:38 35 05/16/20 07:34 Mechanical Ventilator 05/16/20 05:08 112 28 35 05/16/20 04:00 119 05/16/20 04:00 10.0 60 05/16/20 04:00 97.5 98 21 115/87 (96) 98 05/16/20 04:00 Mechanical Ventilator 05/16/20 03:08 97.8 05/16/20 03:07 116 24 35 05/16/20 01:22 99 29 35 05/16/20 01:15 97 Mechanical Ventilator 35 05/16/20 00:00 118 05/16/20 00:00 Mechanical Ventilator 05/16/20 00:00 97.8 100 21 129/75 (93) 99 05/16/20 00:00 10.0 60 05/15/20 23:37 110 25 130/78 98 05/15/20 23:10 118 34 35 05/15/20 23:07 107 24 142/66 99 05/15/20 22:43 97.7 05/15/20 20:00 10.0 60 05/15/20 20:00 97.4 102 21 153/80 (104) 97 05/15/20 20:00 118 05/15/20 20:00 Mechanical Ventilator 05/15/20 19:11 96 T-Piece 10.0 60 05/15/20 17:25 116 24 60 05/15/20 17:06 115 150/87 05/15/20 16:00 97.7 115 22 150/87 (108) 95 05/15/20 16:00 Mechanical Ventilator 05/15/20 16:00 10.0 60 05/15/20 15:21 116 05/15/20 14:50 115 25 60 05/15/20 12:36 117 28 97 T-Piece 10.0 60 118 25 60 05/15/20 11:59 97.9 116 25 135/75 (95) 94 05/15/20 11:50 94 T-Piece 10.0 60 05/15/20 11:50 115 25 60 05/15/20 11:47 Mechanical Ventilator 05/15/20 11:45 10.0 60 05/15/20 11:44 60 05/15/20 11:28 104 26 35 05/15/20 11:25 109 05/15/20 08:48 99 27 35 Intake and Output 05/15/20 05/16/20 19:00 07:00 Intake Total 950 ml 925 ml Output Total 450 ml 550 ml Balance 500 ml 375 ml Free Water 300 ml IV Total 50 ml 375 ml Tube Feeding 600 ml 550 ml Output Urine Total 450 ml 550 ml # Bowel Movements 1 General Appearance: WD/WN, no acute distress HEENT: normocephalic, atraumatic, status post trach Respiratory: chest wall non-tender Cardiovascular: normal rate, regular rhythm Abdomen: normal bowel sounds, soft, non tender, other - obese Extremities: other - L arm weakness and swelling without redness Microbiology Date/Time Source Procedure Growth Status 05/14/20 07:00 Urine,Clean Catch Urine Culture - Preliminary Gram Negative Zackary YEAST Resulted 05/13/20 17:06 Blood Blood Culture - Preliminary Resulted Laboratory Tests 05/15/20 15:14: Arterial Blood pH 7.403, Arterial Blood Partial Pressure CO2 55.8*H, Arterial Blood Partial Pressure O2 61.4L, Arterial Blood HCO3 34.0H, Arterial Blood Oxygen Saturation 90.9L, Arterial Blood Base Excess 7.7H, Shemar Test Positive 05/16/20 04:30: White Blood Count 15.5#H, Red Blood Count 3.55L, Hemoglobin 10.0L, Hematocrit 32.9L, Mean Corpuscular Volume 93, Mean Corpuscular Hemoglobin 28.2, Mean Corpuscular Hemoglobin Concent 30.4L, Red Cell Distribution Width 15.6H, Platelet Count 398, Mean Platelet Volume 6.2L, Neutrophils (%) (Auto) , Lymphocytes (%) (Auto) , Monocytes (%) (Auto) , Eosinophils (%) (Auto) , Basophils (%) (Auto) , Neutrophils % (Manual) [Pending], Lymphocytes % (Manual) [Pending], Platelet Estimate [Pending], Platelet Morphology [Pending] 05/16/20 07:31: Sodium Level 139, Potassium Level 4.4, Chloride Level 100, Carbon Dioxide Level 31, Anion Gap 8, Blood Urea Nitrogen 24H, Creatinine 0.5L, Estimat Glomerular Filtration Rate > 60, Glucose Level 171H, Uric Acid 4.2, Calcium Level 9.4, Phosphorus Level 3.1, Magnesium Level 2.1, Total Bilirubin 1.8H, Direct Bilirubin 1.5H, Aspartate Amino Transf (AST/SGOT) 583H, Alanine Aminotransferase (ALT/SGPT) 385H, Alkaline Phosphatase 665H, Total Protein 7.0, Albumin 3.1L, Globulin 3.9, Albumin/Globulin Ratio 0.8L Current Medications Medications (Trade) Dose Ordered Sig/Dennis Route PRN Reason Start Time Stop Time Status Last Admin Dose Admin Acetaminophen (Tylenol) 650 mg Q4H PRN GT Mild Pain (Pain Scale 1-3) 05/02/20 08:45 06/01/20 08:44 05/08/20 20:28 Acetaminophen/ Hydrocodone Bitart ([place] 5/325) 1 tab Q4H PRN GT For Pain 05/09/20 16:30 05/16/20 11:59 05/16/20 02:38 Amlodipine Besylate (Norvasc) 2.5 mg BID GT 05/02/20 18:00 06/02/20 08:59 05/15/20 17:06 Cefepime HCl 2 gm/ Dextrose 100 ml @ 200 mls/hr EVERY 8 HOURS IVPB 05/15/20 22:00 05/22/20 21:59 05/16/20 05:12 Chlorhexidine Gluconate (Marlen-Hex 2%) 1 applic DAILY@1999 TOPIC 03/30/20 20:00 06/28/20 19:59 05/15/20 20:18 Enoxaparin Sodium (Lovenox) 80 mg EVERY 12 HOURS SUBQ 04/06/20 21:00 07/05/20 20:59 05/15/20 20:20 Famotidine (Pepcid) 20 mg Q12HR PRN GT HEARTBURN 05/08/20 13:15 06/01/20 15:14 05/13/20 08:52 Fluconazole (Diflucan) 100 mg DAILY ORAL 05/16/20 09:00 05/23/20 08:59 Hydralazine HCl (Apresoline) 10 mg Q4H PRN IV For High Blood Pressure 03/30/20 12:15 06/28/20 12:14 05/11/20 14:37 Ipratropium [place] (Atrovent) 500 mcg Q6H PRN HHN Shortness of Breath 05/11/20 16:14 05/16/20 16:13 05/12/20 22:10 Lansoprazole (Prevacid) 30 mg DAILY GT 05/02/20 09:00 06/01/20 08:59 05/15/20 08:11 Lorazepam (Ativan) 1 mg Q6H PRN GT For Anxiety 05/13/20 08:45 05/16/20 20:44 05/15/20 23:07 Metronidazole (Flagyl) 500 mg Q8HR ORAL 05/13/20 22:00 05/20/20 21:59 05/16/20 05:12 Prednisone (predniSONE) 5 mg DAILY GT 05/13/20 09:00 06/05/20 08:59 05/15/20 08:11 Quetiapine Fumarate (SEROqueL) 50 mg EVERY 8 HOURS GT 05/13/20 14:00 06/11/20 11:59 05/16/20 05:11 Vancomycin HCl (Vanco pharmacy to dose) 1 ea DAILY PRN MISC Per rx protocol 05/15/20 18:45 06/14/20 18:44 Vancomycin HCl 750 mg/Sodium Chloride 275 ml @ 183.333 mls/hr Q8H IVPB 05/15/20 21:00 05/20/20 20:59 05/16/20 05:11 Assessment/Plan Assessment/Plan 1.COVID-19 pneumonia. - Completed specific therapies - off solumedrol 20 Iv q 12 -> now on prednisone 5 mg PO QD - will add bactrim for PJP prophylaxis 2. DVT ppx - on lovenox 3. Hypertension - On Norvasc 4. Leukocytosis; - ID following - Off abx - Candidemia documented 03/18/20 5. Elevated LFT - positive Hep C; treated in the past with IF - Abd US - Check lipase 6. Respiratory failure -Intubated 03/28/20; s/p tracheostomy 04/25/20 -Gradually weaned off sedation IOV 7. Left UE edema and weakness - CT head w/o contrast -> Negative for acute intracranial bleed or mass effect - hx of thrombosis -> on full dose Lovenox - no redness - monitor - will consult neuro 8. Pneumomediastinum - no PTX - will switch tracheostomy to trach collar -> plan held given new onset vomiting 9. New onset vomiting with R sided abd pain - will order Abd US - Zofran prn n/v 10. Yeast UTI - ID following 11. BCx gram positive rods - ID following Will wean down FiO2 as tolerated CXR shows bilateral interstitial changes? fibrosis? S/p PEG Off IV fluids Dc planning to subacute -> ordered case hardener consult for placement On seroquel 50 mg PO TID; On Ativan and [place] DC pending placement The care of this patient was discussed with my supervising physician Time spent for this encounter was approximately 31 minutes Edilson Marinelli May 16, 2020 08:47
[2020-05-16] MEDS: Enoxaparin 80mg Inj SUBQ SCH (08:48)
--- NOTE | 2020-05-16 08:54 | NUR ---
RD ASSESSMENT & RECOMMENDATIONS SEE CARE ACTIVITY FOR COMPLETE ASSESSMENT DAILY ESTIMATED NEEDS: Needs based on Critical care, wound 81kg abw 22-28 kcals/kg 0584-4418 total kcals 1.25-2 g protein/kg 101-162 g total protein 25-30 mL/kg 6721-2343 total fluid mLs NUTRITION DIAGNOSIS: * Increased kcal/prot/micronutrients needs R/T wound healing as evidenced by pt w/ new multiple pressure injuries, 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 * Inadequate oral intake R/T clinical and respiratory status as evidenced by COVID-19 ++, on continuous BIPAP, prolonged meal refusals, pt is now on TPN, pt orally intubated (03/28), s/p trach placement (04/26), and s/p PEG placement (04/27), now on GT feeds. * Decreased sodium and fat needs r/t HTN and obesity as evidenced by pt w/ cardiac history, elev BP (159/98-> now improved, on BP meds and diuretics), BMI >30, obese per guidelines. (INACTIVE) CURRENT TF:Glucerna 1.5 goal of 50 + Prosource BID ENTERAL NUTRITION RECOMMENDATIONS: Glucerna 1.5 @ 50ml/hr x 24 hrs + Prosource 1pkt BID to provide 1200ml, 1800kcal, 99g +22g prot (121g total prot), 926ml free water * Resume TF as able. * Con't Prosource 1pkt BID (additional 22g prot) to better meet est prot needs. ADDITIONAL RECOMMENDATIONS: 1) RE-calibrate bed scale- extended adm, multiple floor transfers 2) Monitor BGs closely w/ prednisone-> BG up (171, 05/16) 3) Tbili, LFT's up, f/up w/ MD garcia, POC 4) Monitor TF tolerance: PEG placed 04/28, cont to increase TF to goal as tolerated 5) Wound healing: Add Michale BID (mix w/ 2-4oz of water) TF @ goal provides 100% RDI, add Vit C 500mg QD, ZnSO4 220mg [id number]
[2020-05-16] MEDS ORDERED: Fluconazole 100mg tab ORAL SCH (09:00)
--- NOTE | 2020-05-16 09:35 | NUR ---
NURSE NOTES: RN called Dr Weinberg again regarding blood culture positive rods in one bottle , no called back yet, Dr Quintero is aware about vomiting and abd pain, no call back yet, YENI Marinelli is aware.
--- NOTE | 2020-05-16 09:49 | NUR ---
NURSE NOTES: Dr Weinberg called back and ordered blood culture today and CBC CMP tomorrow, noted and carried out. will continue to monitor.
[2020-05-16] MEDS: HYDROcodone/Acetamin 10/325 tab ORAL PRN (10:03)
--- NOTE | 2020-05-16 10:38 | Surgery Progress Note ---
Surgery Progress Note Subjective Procedure Performed tracheostomy Additional Comments CT head noted awake responsive leukocytosis lft's elevated Objective Last 24 Hour Vital Signs Date Time Temp Pulse Resp B/P (MAP) Pulse Ox O2 Delivery O2 Flow Rate FiO2 05/16/20 09:16 123 22 130/89 98 05/16/20 08:46 122 30 137/99 98 05/16/20 08:46 120 137/99 05/16/20 07:59 97.2 117 18 137/99 (112) 98 05/16/20 07:45 121 30 35 05/16/20 07:45 98 Mechanical Ventilator 35 05/16/20 07:44 119 05/16/20 07:38 35 05/16/20 07:34 Mechanical Ventilator 05/16/20 05:08 112 28 35 05/16/20 04:00 119 05/16/20 04:00 10.0 60 05/16/20 04:00 97.5 98 21 115/87 (96) 98 05/16/20 04:00 Mechanical Ventilator 05/16/20 03:08 97.8 05/16/20 03:07 116 24 35 05/16/20 01:22 99 29 35 05/16/20 01:15 97 Mechanical Ventilator 35 05/16/20 00:00 118 05/16/20 00:00 Mechanical Ventilator 05/16/20 00:00 97.8 100 21 129/75 (93) 99 05/16/20 00:00 10.0 60 05/15/20 23:37 110 25 130/78 98 05/15/20 23:10 118 34 35 05/15/20 23:07 107 24 142/66 99 05/15/20 22:43 97.7 05/15/20 20:00 10.0 60 05/15/20 20:00 97.4 102 21 153/80 (104) 97 05/15/20 20:00 118 05/15/20 20:00 Mechanical Ventilator 05/15/20 19:11 96 T-Piece 10.0 60 05/15/20 17:25 116 24 60 05/15/20 17:06 115 150/87 05/15/20 16:00 97.7 115 22 150/87 (108) 95 05/15/20 16:00 Mechanical Ventilator 05/15/20 16:00 10.0 60 05/15/20 15:21 116 05/15/20 14:50 115 25 60 05/15/20 12:36 117 28 97 T-Piece 10.0 60 118 25 60 05/15/20 11:59 97.9 116 25 135/75 (95) 94 05/15/20 11:50 94 T-Piece 10.0 60 05/15/20 11:50 115 25 60 05/15/20 11:47 Mechanical Ventilator 05/15/20 11:45 10.0 60 05/15/20 11:44 60 05/15/20 11:28 104 26 35 05/15/20 11:25 109 I&O Intake and Output 05/15/20 05/16/20 19:00 07:00 Intake Total 950 ml 925 ml Output Total 450 ml 550 ml Balance 500 ml 375 ml Free Water 300 ml IV Total 50 ml 375 ml Tube Feeding 600 ml 550 ml Output Urine Total 450 ml 550 ml # Bowel Movements 1 Dressing: other Wound: other Cardiovascular: RSR Respiratory: decreased breath sounds Abdomen: soft, flat, non-tender, present bowel sounds, non-distended Extremities: no tenderness, no cyanosis Laboratory Tests Test 05/15/20 15:14 05/16/20 04:30 05/16/20 07:31 Arterial Blood pH 7.403 (7.350-7.450) Arterial Blood Partial Pressure CO2 55.8 mmHg (35.0-45.0) *H Arterial Blood Partial Pressure O2 61.4 mmHg (75.0-100.0) L Arterial Blood HCO3 34.0 mmol/L (22.0-26.0) H Arterial Blood Oxygen Saturation 90.9 % (95-100) L Arterial Blood Base Excess 7.7 (-2-2) H Shemar Test Positive White Blood Count 15.5 K/UL (4.8-10.8) #H Red Blood Count 3.55 M/UL (4.70-6.10) L Hemoglobin 10.0 G/DL (14.2-18.0) L Hematocrit 32.9 % (42.0-52.0) L Mean Corpuscular Volume 93 FL (80-99) Mean Corpuscular Hemoglobin 28.2 PG (27.0-31.0) Mean Corpuscular Hemoglobin Concent 30.4 G/DL (32.0-36.0) L Red Cell Distribution Width 15.6 % (11.6-14.8) H Platelet Count 398 K/UL (150-450) Mean Platelet Volume 6.2 FL (6.5-10.1) L Neutrophils (%) (Auto) % (45.0-75.0) Lymphocytes (%) (Auto) % (20.0-45.0) Monocytes (%) (Auto) % (1.0-10.0) Eosinophils (%) (Auto) % (0.0-3.0) Basophils (%) (Auto) % (0.0-2.0) Differential Total Cells Counted 100 Neutrophils % (Manual) 92 % (45-75) H Lymphocytes % (Manual) 4 % (20-45) L Monocytes % (Manual) 4 % (1-10) Eosinophils % (Manual) 0 % (0-3) Basophils % (Manual) 0 % (0-2) Band Neutrophils 0 % (0-8) Platelet Estimate Adequate Platelet Morphology Normal Hypochromasia 1+ Anisocytosis 1+ Sodium Level 139 MMOL/L (136-145) Potassium Level 4.4 MMOL/L (3.5-5.1) Chloride Level 100 MMOL/L (98-107) Carbon Dioxide Level 31 MMOL/L (21-32) Anion Gap 8 mmol/L (5-15) Blood Urea Nitrogen 24 mg/dL (7-18) H Creatinine 0.5 MG/DL (0.55-1.30) L Estimat Glomerular Filtration Rate > 60 mL/min (>60) Glucose Level 171 MG/DL (74-106) H Uric Acid 4.2 MG/DL (2.6-7.2) Calcium Level 9.4 MG/DL (8.5-10.1) Phosphorus Level 3.1 MG/DL (2.5-4.9) Magnesium Level 2.1 MG/DL (1.8-2.4) Total Bilirubin 1.8 MG/DL (0.2-1.0) H Direct Bilirubin 1.5 MG/DL (0.0-0.3) H Aspartate Amino Transf (AST/SGOT) 583 U/L (15-37) H Alanine Aminotransferase (ALT/SGPT) 385 U/L (12-78) H Alkaline Phosphatase 665 U/L (46-116) H Troponin I 0.005 ng/mL (0.000-0.056) Total Protein 7.0 G/DL (6.4-8.2) Albumin 3.1 G/DL (3.4-5.0) L Globulin 3.9 g/dL Albumin/Globulin Ratio 0.8 (1.0-2.7) L Lipase 222 U/L (73-393) Plan Problems: (1) Pneumonia (2) Staphylococcus aureus bacteremia (3) COVID-19 virus infection Assessment & Plan: prior now neg improving (4) Chest pain (5) Hypertension (6) Dehydration (7) Electrolyte imbalance (8) DMII (diabetes mellitus, type 2) (9) Protein malnutrition Assessment & Plan: DAILY ESTIMATED NEEDS: Needs based on Critical care, wound 81kg abw 22-28 kcals/kg 2770-2126 total kcals 1.25-2 g protein/kg 101-162 g total protein 25-30 mL/kg 2732-8494 total fluid mLs NUTRITION DIAGNOSIS: * Increased kcal/prot/micronutrients needs R/T wound healing as evidenced by pt w/ new multiple pressure injuries, 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 * Inadequate oral intake R/T clinical and respiratory status as evidenced by COVID-19 ++, on continuous BIPAP, prolonged meal refusals, pt is now on TPN, pt orally intubated (03/28), s/p trach placement (04/26), and s/p PEG placement (04/27), now on GT feeds. * Decreased sodium and fat needs r/t HTN and obesity as evidenced by pt w/ cardiac history, elev BP (159/98-> now improved, on BP meds and diuretics), BMI >30, obese per guidelines. (INACTIVE) CURRENT TF:Glucerna 1.5 goal of 50 + Prosource BID ENTERAL NUTRITION RECOMMENDATIONS: Glucerna 1.5 @ 50ml/hr x 24 hrs + Prosource 1pkt BID to provide 1200ml, 1800kcal, 99g +22g prot (121g total prot), 926ml free water * Maintain current TF order * Con't Prosource 1pkt BID (additional 22g prot) to better meet est prot needs. ADDITIONAL RECOMMENDATIONS: 1) Maintain calibrated bedscale wts 2) Monitor BGs closely w/ Solumedrol (POC glu wnl at this time) 3) Monitor lytes, replete as needed 4) Monitor TF tolerance: PEG placed 04/28, cont to increase TF to goal as tolerated 5) Wound healing: Add Michael BID (mix w/ 2-4oz of water) TF @ goal provides 100% RDI, add Vit C 500mg QD, ZnSO4 220mg [id number] (10) Respiratory insufficiency Assessment & Plan: 64-year-old male with respiratory insufficiency intubated in an intensive care unit. Patient has been unable to safely wean off ventilatory support. Surgery called to evaluate for tracheostomy. After careful evaluation patient is a candidate for tracheostomy. In the meantime will obtain consent. If consent obtained will proceed with scheduling. Thank you for your participation's care will follow recommendations improving trach okay agitated weaning sedation no n/v cont weaning transition to oral meds via g tube get off drips improving downgraded weaning well more alert and awake responsive will need placement trach collar consideration pending sub acute placement okay for placement cont trach care leave sutures in place as dissolvable recovering well fully awake now tolerating diet d/c planning awaiting placement (11) LFT elevation Assessment & Plan: leukocytosis lfts elevated no n/v US ordered trend labs Booker Gracia May 16, 2020 10:38
--- NOTE | 2020-05-16 10:59 | NUR ---
RESPIRATORY NOTE: Per Dr. Mata placed pt on T-Piece 10L 40% cool aerosol. Pt tolerating well. SpO2 100%. RN aware. Will continue to closely monitor.
[2020-05-16] MEDS ORDERED: HYDROmorphone 1mg/ml Carpuject IVP SCH (11:30)
--- NOTE | 2020-05-16 11:31 | NUR ---
NURSE NOTES: Dr Rausch is aware that pt has very acute R lower abd pain, visited pt, pt signed consent form for contrast. Will continue to close monitoring.
--- NOTE | 2020-05-16 11:52 | General Progress Note ---
Subjective ROS Limited/Unobtainable: No Allergies: Coded Allergies: No Known Allergies (Unverified , 02/05/20) Objective Last 24 Hour Vital Signs Date Time Temp Pulse Resp B/P (MAP) Pulse Ox O2 Delivery O2 Flow Rate FiO2 05/16/20 11:04 100 T-Piece 10.0 40 05/16/20 11:00 10.0 40 05/16/20 10:50 119 23 35 05/16/20 09:16 123 22 130/89 98 05/16/20 08:46 122 30 137/99 98 05/16/20 08:46 120 137/99 05/16/20 07:59 97.2 117 18 137/99 (112) 98 05/16/20 07:45 121 30 35 05/16/20 07:45 98 Mechanical Ventilator 35 05/16/20 07:44 119 05/16/20 07:38 35 05/16/20 07:34 Mechanical Ventilator 05/16/20 05:08 112 28 35 05/16/20 04:00 119 05/16/20 04:00 10.0 60 05/16/20 04:00 97.5 98 21 115/87 (96) 98 05/16/20 04:00 Mechanical Ventilator 05/16/20 03:08 97.8 05/16/20 03:07 116 24 35 05/16/20 01:22 99 29 35 05/16/20 01:15 97 Mechanical Ventilator 35 05/16/20 00:00 118 05/16/20 00:00 Mechanical Ventilator 05/16/20 00:00 97.8 100 21 129/75 (93) 99 05/16/20 00:00 10.0 60 05/15/20 23:37 110 25 130/78 98 05/15/20 23:10 118 34 35 05/15/20 23:07 107 24 142/66 99 05/15/20 22:43 97.7 05/15/20 20:00 10.0 60 05/15/20 20:00 97.4 102 21 153/80 (104) 97 05/15/20 20:00 118 05/15/20 20:00 Mechanical Ventilator 05/15/20 19:11 96 T-Piece 10.0 60 05/15/20 17:25 116 24 60 05/15/20 17:06 115 150/87 05/15/20 16:00 97.7 115 22 150/87 (108) 95 05/15/20 16:00 Mechanical Ventilator 05/15/20 16:00 10.0 60 05/15/20 15:21 116 05/15/20 14:50 115 25 60 05/15/20 12:36 117 28 97 T-Piece 10.0 60 118 25 60 05/15/20 11:59 97.9 116 25 135/75 (95) 94 Intake and Output 05/15/20 05/16/20 19:00 07:00 Intake Total 950 ml 925 ml Output Total 450 ml 550 ml Balance 500 ml 375 ml Free Water 300 ml IV Total 50 ml 375 ml Tube Feeding 600 ml 550 ml Output Urine Total 450 ml 550 ml # Bowel Movements 1 Laboratory Tests 05/15/20 15:14: Arterial Blood pH 7.403, Arterial Blood Partial Pressure CO2 55.8*H, Arterial Blood Partial Pressure O2 61.4L, Arterial Blood HCO3 34.0H, Arterial Blood Oxygen Saturation 90.9L, Arterial Blood Base Excess 7.7H, Shemar Test Positive 05/16/20 04:30: White Blood Count 15.5#H, Red Blood Count 3.55L, Hemoglobin 10.0L, Hematocrit 32.9L, Mean Corpuscular Volume 93, Mean Corpuscular Hemoglobin 28.2, Mean Corpuscular Hemoglobin Concent 30.4L, Red Cell Distribution Width 15.6H, Platelet Count 398, Mean Platelet Volume 6.2L, Neutrophils (%) (Auto) , Lymphocytes (%) (Auto) , Monocytes (%) (Auto) , Eosinophils (%) (Auto) , Basophils (%) (Auto) , Differential Total Cells Counted 100, Neutrophils % (Manual) 92H, Lymphocytes % (Manual) 4L, Monocytes % (Manual) 4, Eosinophils % (Manual) 0, Basophils % (Manual) 0, Band Neutrophils 0, Platelet Estimate Adequate, Platelet Morphology Normal, Hypochromasia 1+, Anisocytosis 1+ 05/16/20 07:31: Sodium Level 139, Potassium Level 4.4, Chloride Level 100, Carbon Dioxide Level 31, Anion Gap 8, Blood Urea Nitrogen 24H, Creatinine 0.5L, Estimat Glomerular F iltration Rate > 60, Glucose Level 171H, Uric Acid 4.2, Calcium Level 9.4, Phosphorus Level 3.1, Magnesium Level 2.1, Total Bilirubin 1.8H, Direct Bilirubin 1.5H, Aspartate Amino Transf (AST/SGOT) 583H, Alanine Aminotransferase (ALT/SGPT) 385H, Alkaline Phosphatase 665H, Troponin I 0.005, Total Protein 7.0, Albumin 3.1L, Globulin 3.9, Albumin/Globulin Ratio 0.8L, Lipase 222 Height (Feet): 5 Height (Inches): 10.00 Weight (Pounds): 243 General Appearance: lethargic EENT: normal ENT inspection Neck: supple Cardiovascular: normal rate Respiratory/Chest: decreased breath sounds Abdomen: hypoactive bowel sounds Extremities: non-tender Assessment/Plan Status: stable, unchanged Assessment/Plan: abd pain vomiting elevated LFTS hold GTF abd us CT repeat labs fu surg recs Da Quintero MD May 16, 2020 11:52
[2020-05-16 12:00] VITALS: BP 150/100
--- NOTE | 2020-05-16 12:43 | Consultation ---
Consult Note Consult Note NEUROLOGY CONSULTATION DATE OF CONSULTATION: 05/16/2020 CELESTINE INTERIANO: Dr. Mata REASON FOR REFERRAL: Weakness HISTORY OF PRESENT ILLNESS: This is a 64-year-old patient who has been admitted to [facility] for several months he initially presented in Jan 2021 diagnosed with COVID 19 disease and chest pain and shortness of breath. He also reports shortness of breath. 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 He reports that he has diffuse back pain and chest pain. He underwent imaging studies and a CT angiogram in the emergency room which did not show any pulmonary embolism, he has a DVT in left subclavian vein. He is currently in [address] tele floor has a trach he is speaking and makes his needs known. He is able to communicate, he experiences weakness in his left upper extremity, movement is limited in left arm. We were consulted for weakness. He denies headaches, dizziness. PAST MEDICAL HISTORY: Smoker ALLERGIES: None. PAST SURGICAL HISTORY: Trach, G tube. SOCIAL HISTORY: The patient admits to being a tobacco user. Denies any substance abuse or marijuana. REVIEW OF SYSTEMS: Denies any headaches, hematemesis, melena, or hematochezia. PHYSICAL EXAMINATION: General: Pt is awake oriented and has insight to situation. Neuro: resting in bed watching television,Awake,alert oriented x4 language parameters intact, Comprehension intact PERRLA, No nystagmus with gaze. No facial droop tongue is midline. Hearing intact. No involuntary movement, bedbound gait not tested. Right upper extremity 3/5, left upper extremity unable to move, raise and squeeze my hand bilateral lower extremities 1/5. LABORATORY DATA: Reviewed. IMAGING CT Head: Negative for acute intracranial bleed or mass effect Mild frontal cortical volume loss Cervical soft tissue emphysema, also reported on recent chest radiograph Assessment and Rec's: 1. Left Upper Extremity weakness --> edema, unable to raise arm noted that the has left subclavian vein thrombosis --> CT Head imaging reviewed as above --> continue to monitor. 2. Covid 19 Disease, complicated --> s/p treatment. 3. 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 Smoker. 4. PNA Covid 19 Thank you for allowing us to participate in patient's care, Plan of care was reviewed with Dr. Manoj Lopez and he agrees with plan of care. Nina Zafar NP May 16, 2020 12:43
--- NOTE | 2020-05-16 12:45 | NUR ---
NURSE NOTES: Oral contrast administered via g tube.
[2020-05-16] MEDS ORDERED: Metoprolol Tartrate 5mg/5ml Inj IVP SCH (13:00)
--- NOTE | 2020-05-16 13:00 | NUR ---
NURSE NOTES: Dr Awan is aware ST HR around 140 ordered metoprolol 2.5 mg IVP once, noted and carried out. will continue close monitoring.
--- NOTE | 2020-05-16 14:13 | NUR ---
NURSE NOTES: pt is NPO, Seroquel will give to pt after CT.
--- NOTE | 2020-05-16 14:35 | Nephrology Progress Note ---
Assessment/Plan Problem List: (1) Dehydration (2) Electrolyte imbalance (3) COVID-19 virus infection (4) Pneumonia (5) DMII (diabetes mellitus, type 2) (6) Protein malnutrition Assessment Azotemia, hypernatremia Hypoalbuminemia Staff Otilia bacteremia COVID-19 isolation, pneumonia, bilateral infiltrate Hypertension Diabetes mellitus History of smoking Plan May 16: Renal parameters stable. Acute elevation in liver function tests W adela BC with right-sided abdominal pain. Likely acute Karen cystitis. Continue per GI/surgery. Medication list reviewed. Continue to monitor electrolytes and renal parameters. May 15: Labs reviewed. Renal parameters stable. Patient remains full code. Is trached to vent and has PEG. May 14: Labs reviewed. Stable renal parameters. May 13: No labs drawn today. Stable from renal standpoint of view. Continue per consultants. May 12: Labs reviewed. Renal parameters stable. Status quo. Continue per consultants. May 11: No labs drawn today. Will check can panel tomorrow. Medication list reviewed. Patient remains full code. Continue per consultants. May 10: Labs reviewed. Serum sodium higher. Renal parameters and electrolytes stable. Medication list reviewed. Continue per consultants. May 09: Labs reviewed. Serum sodium 135. Continue to monitor electrolytes. M edication list reviewed. Continue per current management. May 08: Labs reviewed. Renal parameters stable. Medication list reviewed. Continue per consultants. May 07: No labs drawn today reviewed. Clinically stable. Medication list reviewed. Will check lab tomorrow. Continue per consultants. May 06: Labs reviewed. Renal parameters stable. Continue per consultants. May 05: Labs reviewed. Renal parameters stable. Patient is due to be transferred to SCU. Continue per consultants. Medication list reviewed. May 04: Labs reviewed. Renal parameters stable. Overall status unchanged. Remains full code. Fed through GT tube. Trach to vent. FiO2 45%. Continue per consultants. May 03: No CHEM panel drawn today. Patient clinically stable. Has trach to vent and PEG. Will check lab tomorrow. May 02: Labs reviewed. Status quo. Patient is trached and vented. Also has P EG. Is full code. Stable from renal standpoint of view. May 01: Labs reviewed. Status quo. Patient has trach connected to vent. Has PEG. He is full code. FiO2 50%. April 30: Status quo. Labs reviewed. Renal parameters stable. Medication list reviewed. April 29: Status quo. Received PEG yesterday. Has trach connected to vent. FiO2 40%. Labs reviewed. Medication list reviewed. Continue same April 28: Status quo. Labs reviewed. Renal parameters stable. Patient n.p.o. due for PEG insertion. IV changed to D5 normal saline. Continue per consultants. April 27: Status quo. Labs reviewed. Medication list reviewed. Stable from renal standpoint of view. Abnormal electrolytes addressed. April 26: Patient is now trached and connected to vent. FiO2 70%. Labs reviewed. Renal parameters stable. Medication list reviewed. Continue per consultants. April 25: Status quo. Full code. FiO2 55%. No labs drawn today. Continue to monitor electrolytes and renal parameters. Continue per consultants. April 24: Status quo. Full code. Intubated on ventilator. FiO2 65%. Labs reviewed. Renal parameters and electrolytes stable. April 23: Status unchanged. Full code. Intubated on ventilator. FiO2 75%. Labs reviewed. Renal parameters stable. Continue per consultants. April 22: Labs reviewed. Patient remains intubated on ventilator and full code. FiO2 90%. Day 77 hospitalization. Not much to add from renal standpoint of view April 21: No CHEM panel drawn today. FiO2 60%. Patient full code. Continue per consultants. April 20: Labs reviewed. Renal parameters stable. Patient remains full code. Intubated on ventilator with FiO2 currently at 70%. Continue per consultants. April 19: No labs drawn today. Remains full code on FiO2 of 100%. Continue per consultants. April 18: Status quo. Labs reviewed. Renal parameters stable. April 17: Status quo. Intubated on ventilator. Full code. Labs reviewed. Electrolytes and renal parameters stable. Continue per consultants. April 16: Girlfriend in the room. Patient awake. Intubated. Full code. Labs reviewed. Abnormal electrolyte addressed. Continue per consultants. April 15: Labs reviewed. Electrolytes and renal parameters stable. Patient full code. Continues to be intubated on ventilator. April 14: Status quo. Labs reviewed. Remains intubated on ventilator. Full code. Continue per consultants. April 13: Status quo. Labs reviewed. Renal parameters electrolytes stable. Continue per current treatment plan. April 12: On higher FiO2. Will resume Lasix daily. Continue to monitor electrolytes and renal parameters. Per consultants. April 11: FiO2 went up to 85%. Renal parameters and electrolytes reasonably well-maintained. Will monitor serum potassium. Will give IV Lasix. April 10: Status quo. Labs reviewed. Remains intubated on ventilator with FiO2 of 65%. Remains full code. Stable from renal standpoint to view. Repeat vitamin D level on April 08 pending April 09: Status quo. Labs reviewed. Stable from renal standpoint of view. Continue per consultants. April 08: Discussed with RN. Labs reviewed. Clinically improving. Requires lower PEEP. Continue per pulmonary. Continue to monitor renal parameters. April 07: Remains full code and on ventilator. Labs reviewed. Renal parameters and electrolytes stable. Continue per consultants. Blood pressure marginally improved. April 06: Full code. On ventilator. Blood pressure 80-90 systolic. IV Lasix discontinued. Free water through tube feeding ordered. Continue to monitor electrolytes and serum sodium. Down on fentanyl as possible. Discussed with PRIYANKA Brown. Clonidine patch discontinued. April 05: Status quo. Remains full code. Remains intubated. Labs reviewed. Renal parameters stable. Serum sodium 150 unchanged. Continue per consultants. April 04: Remains intubated and on ventilator. Remains full code. Labs reviewed. Serum sodium 150 unchanged. Renal parameters stable. Continue per ID and pulmonary. April 03: Intubated. On ventilator. Full code. Labs reviewed. Serum sodium 150 unchanged. Continue to monitor renal parameters. Continue per pulmonary and ID. April 02: Full code. On ventilator. Discussed with RN. Serum sodium slightly higher. Will cut down on IV Lasix. Continue per consultants. Continue to monitor renal parameters and electrolytes. April 01: Full code. Remains on ventilator. Labs reviewed. Stable from renal standpoint of view. Continue per consultants. March 31: Full code . Remains intubated on ventilator. Labs reviewed. Patient appears toxic. Discussed with RN. Maintenance IV discontinued. Medication list reviewed. Blood pressure medication stopped due to low blood pressure. Levemir insulin stopped. Continue monitor blood sugar and sliding scale insulin. March 30: Full code. On ventilator. Labs reviewed. Clonidine patch dose increased. Lasix increased. 3% saline 1 time ordered. Continue to monitor electrolytes and renal parameters. March 29: Remains full code. On mechanical ventilation. On tube feeding. Will DC TPN. Will start on maintenance IV fluid. Continue to monitor renal parameters. March 28: On BiPAP. Full code. On TPN. Labs reviewed. Discussed with pharmacy. Continue as is. Watch serum potassium. March 27: Remains on BiPAP. No chemistry panel done today. Full code. On TPN. Will check lab tomorrow. March 26: Remains on BiPAP. Remains on TPN. Labs reviewed. Electrolytes and chemistries within normal limits. Continue as is. March 25: Remains on TPN. Labs reviewed. Discussed with pharmacy. Change IV Protonix to p.o. Continue 3% saline infusion with Lasix. Patient full code. March 24: Continue to be on TPN. Labs are reviewed. Aim to collect electrolytes. Discussed with pharmacy. Continue current consultants. March 23: Continues to be on TPN. Labs reviewed. Electrolytes and chemi stries all acceptable. Discussed with pharmacy. Continue current management. March 22: On TPN. Labs reviewed. Low sodium noted. 3% saline to be continued. Continue to monitor electrolytes. Discussed with pharmacy. March 21: On TPN. Labs reviewed. Continue 3% saline and Lasix for mild hyponatremia. Continue TPN as these. Discussed with pharmacy. March 20: Remains on TPN. Labs reviewed. Serum sodium higher on IV Lasix and 3% saline infusion. Continue TPN as is. Continue to monitor renal parameters and electrolytes. Discussed with Dr. Mata March 19: Remains on TPN. Labs reviewed. Serum sodium 128. Will give 3% saline with IV Lasix. Continue to monitor electrolytes. No change in TPN composition. Discussed with pharmacy. March 18: Remains on TPN. Labs reviewed. Discussed with pharmacist. Will give 3 doses of IV Lasix 20 mg every 8 hours. Continue to monitor serum sodium electrolytes uric acid. White blood cells down. Continue per consultants. March 17: On TPN. Labs reviewed. Discussed with pharmacist. Sodium content increase. Continue to monitor CMP. Patient continues to have leukocytosis. March 16: On TPN. Labs reviewed. Discussed with pharmacist. Appropriate changes made. Continue to monitor electrolytes. March 15: Remains on TPN. Labs reviewed. Discussed with pharmacist. Continue per current management. March 14: Remains on TPN. Labs reviewed, stable. Vitamin D level low, replacement ordered. Continue to monitor electrolytes and renal parameters. March 13: Patient remains on TPN. Discussed with pharmacist. TPN's sodium content adjusted. Labs reviewed. Continue to monitor electrolytes. Blood pressure remains stable. Continue per consultants. March 12: Patient on TPN. Labs reviewed. CPK remains elevated. Abnormal electrolytes and high blood sugar discussed with pharmacist and TPN adjusted. Continue to monitor labs. Oral Protonix added. Ibuprofen discontinued. Can continue to monitor electrolytes and chemistries. Levemir for high blood sugar added. March 11: Patient on TPN. Labs as of 11:15 AM is still pending. Continue per current treatment plan. Will check labs and adjust TPN as needed. Continue per consultants. March 10: Patient on TPN. Labs reviewed. Electrolytes overall stable. CPK is elevated. Will monitor electrolyte, CPK level, lipid panel. Continue per consultants. Discussed with pharmacist. Discussed with RN. Nutritional evaluation noted. Previously: D5W 100 cc an hour Monitor electrolytes renal parameters TPN and Intralipid ordered Will follow Continue per consultants Dietary consult requested Subjective ROS Limited/Unobtainable: Yes Objective Objective Last 24 Hour Vital Signs Date Time Temp Pulse Resp B/P (MAP) Pulse Ox O2 Delivery O2 Flow Rate FiO2 05/16/20 13:06 130 155/101 05/16/20 12:00 96.6 127 20 150/100 (117) 98 05/16/20 12:00 T-piece 05/16/20 11:49 132 05/16/20 11:04 100 T-Piece 10.0 40 05/16/20 11:00 10.0 40 05/16/20 10:50 119 23 35 05/16/20 09:16 123 22 130/89 98 05/16/20 08:46 122 30 137/99 98 05/16/20 08:46 120 137/99 05/16/20 07:59 97.2 117 18 137/99 (112) 98 05/16/20 07:45 121 30 35 05/16/20 07:45 98 Mechanical Ventilator 35 05/16/20 07:44 119 05/16/20 07:38 35 05/16/20 07:34 Mechanical Ventilator 05/16/20 05:08 112 28 35 05/16/20 04:00 119 05/16/20 04:00 10.0 60 05/16/20 04:00 97.5 98 21 115/87 (96) 98 05/16/20 04:00 Mechanical Ventilator 05/16/20 03:08 97.8 05/16/20 03:07 116 24 35 05/16/20 01:22 99 29 35 05/16/20 01:15 97 Mechanical Ventilator 35 05/16/20 00:00 118 05/16/20 00:00 Mechanical Ventilator 05/16/20 00:00 97.8 100 21 129/75 (93) 99 05/16/20 00:00 10.0 60 05/15/20 23:37 110 25 130/78 98 05/15/20 23:10 118 34 35 05/15/20 23:07 107 24 142/66 99 05/15/20 22:43 97.7 05/15/20 20:00 10.0 60 05/15/20 20:00 97.4 102 21 153/80 (104) 97 05/15/20 20:00 118 05/15/20 20:00 Mechanical Ventilator 05/15/20 19:11 96 T-Piece 10.0 60 05/15/20 17:25 116 24 60 05/15/20 17:06 115 150/87 05/15/20 16:00 97.7 115 22 150/87 (108) 95 05/15/20 16:00 Mechanical Ventilator 05/15/20 16:00 10.0 60 05/15/20 15:21 116 05/15/20 14:50 115 25 60 Intake and Output 05/15/20 05/16/20 19:00 07:00 Intake Total 950 ml 925 ml Output Total 450 ml 550 ml Balance 500 ml 375 ml Free Water 300 ml IV Total 50 ml 375 ml Tube Feeding 600 ml 550 ml Output Urine Total 450 ml 550 ml # Bowel Movements 1 Current Medications Medications (Trade) Dose Ordered Sig/Dennis Route PRN Reason Start Time Stop Time Status Last Admin Dose Admin Acetaminophen (Tylenol) 650 mg Q4H PRN GT Mild Pain (Pain Scale 1-3) 05/02/20 08:45 06/01/20 08:44 05/08/20 20:28 Acetaminophen/ Hydrocodone Bitart (Shickley 10/325) 1 tab Q4H PRN ORAL For Pain 05/16/20 09:45 05/23/20 09:44 05/16/20 10:03 Amlodipine Besylate (Norvasc) 2.5 mg BID GT 3/2/21 18:00 06/02/20 08:59 05/16/20 08:46 Barium Sulfate (Readi-Cat 2) 450 ml NOW PRN ORAL Radiology Procedure 05/16/20 11:30 05/18/20 11:29 Cefepime HCl 2 gm/ Dextrose 100 ml @ 200 mls/hr EVERY 8 HOURS IVPB 05/15/20 22:00 05/22/20 21:59 05/16/20 14:07 Chlorhexidine Gluconate (Marlen-Hex 2%) 1 applic DAILY@2000 TOPIC 03/30/20 20:00 06/28/20 19:59 05/15/20 20:18 Enoxaparin Sodium (Lovenox) 80 mg EVERY 12 HOURS SUBQ 04/06/20 21:00 07/05/20 20:59 05/16/20 08:48 Famotidine (Pepcid) 20 mg Q12HR PRN GT HEARTBURN 05/08/20 13:15 06/01/20 15:14 05/13/20 08:52 Hydralazine HCl (Apresoline) 10 mg Q4H PRN IV For High Blood Pressure 03/30/20 12:15 06/28/20 12:14 05/11/20 14:37 Ipratropium Harlan (Atrovent) 500 mcg Q6H PRN HHN Shortness of Breath 05/11/20 16:14 05/16/20 16:13 05/12/20 22:10 Lansoprazole (Prevacid) 30 mg DAILY GT 05/02/20 09:00 06/01/20 08:59 05/16/20 08:46 Lorazepam (Ativan) 1 mg Q6H PRN GT For Anxiety 05/13/20 08:45 05/16/20 20:44 05/16/20 08:46 Metoprolol Tartrate (Lopressor) 2.5 mg ONCE IVP 05/16/20 13:00 05/16/20 15:00 05/16/20 13:06 Metronidazole 100 ml @ 100 mls/hr Q8HR IVPB 05/16/20 14:00 05/23/20 13:59 Ondansetron HCl (Zofran) 4 mg Q6H PRN IVP Nausea & Vomiting 05/16/20 09:45 06/15/20 09:44 05/16/20 10:02 Prednisone (predniSONE) 5 mg DAILY GT 05/13/20 09:00 06/05/20 08:59 05/16/20 08:46 Quetiapine Fumarate (SEROqueL) 50 mg EVERY 8 HOURS GT 05/13/20 14:00 06/11/20 11:59 05/16/20 05:11 Vancomycin HCl (Vanco pharmacy to dose) 1 ea DAILY PRN MISC Per rx protocol 05/15/20 18:45 06/14/20 18:44 Vancomycin HCl 750 mg/Sodium Chloride 275 ml @ 183.333 mls/hr Q8H IVPB 05/15/20 21:00 05/20/20 20:59 05/16/20 12:02 Laboratory Tests 05/15/20 15:14: Arterial Blood pH 7.403, Arterial Blood Partial Pressure CO2 55.8*H, Arterial Blood Partial Pressure O2 61.4L, Arterial Blood HCO3 34.0H, Arterial Blood Oxygen Saturation 90.9L, Arterial Blood Base Excess 7.7H, Shemar Test Positive 05/16/20 04:30: White Blood Count 15.5#H, Red Blood Count 3.55L, Hemoglobin 10.0L, Hematocrit 32.9L, Mean Corpuscular Volume 93, Mean Corpuscular Hemoglobin 28.2, Mean Corpuscular Hemoglobin Concent 30.4L, Red Cell Distribution Width 15.6H, Platelet Count 398, Mean Platelet Volume 6.2L, Neutrophils (%) (Auto) , Lymphocytes (%) (Auto) , Monocytes (%) (Auto) , Eosinophils (%) (Auto) , Basophils (%) (Auto) , Differential Total Cells Counted 100, Neutrophils % (Manual) 92H, Lymphocytes % (Manual) 4L, Monocytes % (Manual) 4, Eosinophils % (Manual) 0, Basophils % (Manual) 0, Band Neutrophils 0, Platelet Estimate Adequate, Platelet Morphology Normal, Hypochromasia 1+, Anisocytosis 1+ 05/16/20 07:31: Sodium Level 139, Potassium Level 4.4, Chloride Level 100, Carbon Dioxide Level 31, Anion Gap 8, Blood Urea Nitrogen 24H, Creatinine 0.5L, Estimat Glomerular Filtration Rate > 60, Glucose Level 171H, Uric Acid 4.2, Calcium Level 9.4, Phosphorus Level 3.1, Magnesium Level 2.1, Total Bilirubin 1.8H, Direct Bilirubin 1.5H, Aspartate Amino Transf (AST/SGOT) 583H, Alanine Aminotransferase (ALT/SGPT) 385H, Alkaline Phosphatase 665H, Troponin I 0.005, Total Protein 7.0, Albumin 3.1L, Globulin 3.9, Albumin/Globulin Ratio 0.8L, Lipase 222 Height (Feet): 5 Height (Inches): 10.00 Weight (Pounds): 243 General Appearance: no apparent distress EENT: other - Trach to vent Cardiovascular: tachycardia Respiratory/Chest: decreased breath sounds Abdomen: distended Rubin Cooper MD May 16, 2020 14:34
--- NOTE | 2020-05-16 14:56 | Diagnostic Imaging Report ---
Indication: Abdominal pain Technique: Rodriguez-scale and duplex images of the upper abdomen were obtained Comparison: 03/15/2020 Findings: Exam is very limited, due to body habitus and excessive bowel gas and presence of a gastrostomy Gallbladder demonstrates sludge. No definite stones or pericholecystic fluid. Sonographic Girard's sign is negative. Common bile duct is nondilated. No intrahepatic biliary ductal dilatation. Portions of the liver are obscured by bowel gas, visualized portions demonstrate diffusely increased echogenicity, consistent with diffuse hepatocellular disease, most likely fatty change. Portal vein and hepatic veins are patent. Pancreas is obscured by bowel gas. Spleen is obscured by bowel gas. Left kidney measures 12.2 cm in length. Right kidney measures 12.2 cm length. Both kidneys demonstrate normal echogenicity. There is no hydronephrosis. No focal abnormality . Abdominal aorta is obscured by bowel gas . Impression: Very limited exam as described. Note nonvisualization of the left hepatic lobe, spleen, pancreas, abdominal aorta Gallbladder sludge. Negative for biliary ductal dilatation Unremarkable kidneys Liver demonstrates diffusely increased echogenicity, consistent with diffuse hepatocellular disease, most likely fatty change.
--- NOTE | 2020-05-16 15:28 | NUR ---
NURSE NOTES: pt came back from CT now so metronidazole and Seroquel given now.
--- NOTE | 2020-05-16 15:41 | NUR ---
INSURANCE CLINCALS FAXED TO [employer] T: [phone] #1 F: [phone] AND ALFRED [employer]LLISION REPAIR TECHNICIAN:JACQUELINE JAMES T: [phone] F: [phone]
[2020-05-16 16:00] VITALS: BP 141/83
--- NOTE | 2020-05-16 16:41 | NUR ---
NURSE NOTES: WOUND TREATMENT DONE ORDER AND PT TOLERATED WELL. WILL CONTINUE TO CLOSE MONITORING.
--- NOTE | 2020-05-16 17:06 | Diagnostic Imaging Report ---
Clinical Indication: Abdominal pain Technique: No oral contrast utilized, per emergency room physician request IV administration nonionic contrast. Venous phase spiral acquisition obtained through the abdomen and pelvis. Multiplanar reconstructions were generated. Total dose length product 753 mGycm. CTDIvol(s) 12 mGy. Dose reduction achieved using automated exposure control Comparison: 02/09/2020. Also abdominal sonogram 05/15/2020 Findings: Included lung bases demonstrate extensive pneumomediastinum. There is subcutaneous emphysema of the right chest wall. There is extensive dense consolidation of both lung bases. There are colonic diverticula. No evidence of diverticulitis. The appendix is normal. No small bowel distention or small bowel wall thickening. There is a small amount of fluid over the dome of the liver. No free intraperitoneal gas. There is a gastrostomy which appears to be well positioned. The distal esophagus is unremarkable. The gallbladder is distended and filled with somewhat high attenuation material. There is dilatation of the common bile duct, which measures up to 17 mm in diameter. No definite pancreatic head mass. There is equivocal mild gallbladder wall thickening. The liver demonstrates a 1 cm low-attenuation lesion in the dome, also evident previously and unchanged. The pancreas, spleen, adrenals are unremarkable. There is a right renal lesion which previously appeared cystic, demonstrates soft tissue attenuation on the current exam. There is a 1 cm cyst in the left renal upper pole. No retroperitoneal or mesenteric mass or adenopathy. No pelvic mass or adenopathy. There is a Brownlee catheter within the bladder. There is some fluid within the bladder despite Brownlee catheter. Gas within the bladder lumen is likely related to the Brownlee catheter. The bones are unremarkable except for mild degenerative spondylosis changes. Impression: Distended gallbladder. Somewhat dense material within the bladder lumen probably represents sludge. However, the possibility that this represents blood should also be considered given the relatively high attenuation. There is also biliary ductal dilatation, without definite downstream obstructive lesion. MRCP may be useful for better characterization Right renal lesion, demonstrating soft tissue attenuation. Possibly a hemorrhagic cyst given cystic appearance on prior study. However, the possibly of solid neoplasm should also be considered. Extensive bilateral basilar pulmonary parenchymal opacification likely related to ongoing pneumonia Small amount of free intraperitoneal fluid Subcutaneous emphysema and pneumomediastinum, also reported on prior chest radiograph Clinical history diverticulosis Gastrostomy Hepatic and left renal cysts Brownlee catheter Findings discussed by phone with Dr. Rausch at the time of interpretation The CT scanner at [facility] is accredited by the [employer] and the scans are performed using protocols designed to limit radiation exposure to as low as reasonably achievable to attain images of sufficient resolution adequate for diagnostic evaluation.
--- NOTE | 2020-05-16 17:49 | Cardiology Progress Note ---
Assessment/Plan Assessment/Plan Acute covid 19 pneumonia hypoxemia infiltrate bilat bacteremia hypernatremia / hyponatremia mild abn lfts tachy post intubation fever fungemia dvt upper ext right sided abd pain now off the vent abd pain ? cholecystitis ? s/p trach / peg now afebrile now hypoxemia unlikely cardiac related now is on full dose anticoag due to dvt ue cr is stable d/w rn imani for bp fuly awake now able to talkd off fox vent weaning bp better on norvasc to be transferred to exterminator [facility] care faciliity surgery evaluating ct noted appendix normal may have cholecystitis as has increased lft and alk phone , ggt and cbd dilated with matraeil in the gb rn notifying dr serrano if needs urgent surgery will need anticoagulation stopped Subjective Cardiovascular: Denies: chest pain, lightheadedness, palpitations Respiratory: Denies: shortness of breath Gastrointestinal/Abdominal: Reports: abdominal pain Genitourinary: Denies: burning Objective Last 24 Hour Vital Signs Date Time Temp Pulse Resp B/P (MAP) Pulse Ox O2 Delivery O2 Flow Rate FiO2 05/16/20 16:00 97.3 113 20 141/83 (102) 100 05/16/20 16:00 T-piece 05/16/20 16:00 10.0 40 05/16/20 15:43 119 05/16/20 13:06 130 155/101 05/16/20 13:00 98 T-Piece 10.0 80 05/16/20 12:00 96.6 127 20 150/100 (117) 98 05/16/20 12:00 T-piece 05/16/20 11:49 132 05/16/20 11:04 100 T-Piece 10.0 40 05/16/20 11:00 10.0 40 05/16/20 10:50 119 23 35 05/16/20 09:16 123 22 130/89 98 05/16/20 08:46 122 30 137/99 98 05/16/20 08:46 120 137/99 05/16/20 07:59 97.2 117 18 137/99 (112) 98 05/16/20 07:45 121 30 35 05/16/20 07:45 98 Mechanical Ventilator 35 05/16/20 07:44 119 05/16/20 07:38 35 05/16/20 07:34 Mechanical Ventilator 05/16/20 05:08 112 28 35 05/16/20 04:00 119 05/16/20 04:00 10.0 60 05/16/20 04:00 97.5 98 21 115/87 (96) 98 05/16/20 04:00 Mechanical Ventilator 05/16/20 03:08 97.8 05/16/20 03:07 116 24 35 05/16/20 01:22 99 29 35 05/16/20 01:15 97 Mechanical Ventilator 35 05/16/20 00:00 118 05/16/20 00:00 Mechanical Ventilator 05/16/20 00:00 97.8 100 21 129/75 (93) 99 05/16/20 00:00 10.0 60 05/15/20 23:37 110 25 130/78 98 05/15/20 23:10 118 34 35 05/15/20 23:07 107 24 142/66 99 05/15/20 22:43 97.7 05/15/20 20:00 10.0 60 05/15/20 20:00 97.4 102 21 153/80 (104) 97 05/15/20 20:00 118 05/15/20 20:00 Mechanical Ventilator 05/15/20 19:11 96 T-Piece 10.0 60 General Appearance: no apparent distress, alert Neck: supple Cardiovascular: normal rate, tachycardia Respiratory/Chest: lungs clear - ant Abdomen: normal bowel sounds, tender - right side Extremities: no swelling Intake and Output 05/15/20 05/16/20 19:00 07:00 Intake Total 950 ml 925 ml Output Total 450 ml 550 ml Balance 500 ml 375 ml Free Water 300 ml IV Total 50 ml 375 ml Tube Feeding 600 ml 550 ml Output Urine Total 450 ml 550 ml # Bowel Movements 1 Laboratory Tests Test 05/16/20 04:30 05/16/20 07:31 White Blood Count 15.5 K/UL (4.8-10.8) #H Red Blood Count 3.55 M/UL (4.70-6.10) L Hemoglobin 10.0 G/DL (14.2-18.0) L Hematocrit 32.9 % (42.0-52.0) L Mean Corpuscular Volume 93 FL (80-99) Mean Corpuscular Hemoglobin 28.2 PG (27.0-31.0) Mean Corpuscular Hemoglobin Concent 30.4 G/DL (32.0-36.0) L Red Cell Distribution Width 15.6 % (11.6-14.8) H Platelet Count 398 K/UL (150-450) Mean Platelet Volume 6.2 FL (6.5-10.1) L Neutrophils (%) (Auto) % (45.0-75.0) Lymphocytes (%) (Auto) % (20.0-45.0) Monocytes (%) (Auto) % (1.0-10.0) Eosinophils (%) (Auto) % (0.0-3.0) Basophils (%) (Auto) % (0.0-2.0) Differential Total Cells Counted 100 Neutrophils % (Manual) 92 % (45-75) H Lymphocytes % (Manual) 4 % (20-45) L Monocytes % (Manual) 4 % (1-10) Eosinophils % (Manual) 0 % (0-3) Basophils % (Manual) 0 % (0-2) Band Neutrophils 0 % (0-8) Platelet Estimate Adequate Platelet Morphology Normal Hypochromasia 1+ Anisocytosis 1+ Sodium Level 139 MMOL/L (136-145) Potassium Level 4.4 MMOL/L (3.5-5.1) Chloride Level 100 MMOL/L (98-107) Carbon Dioxide Level 31 MMOL/L (21-32) Anion Gap 8 mmol/L (5-15) Blood Urea Nitrogen 24 mg/dL (7-18) H Creatinine 0.5 MG/DL (0.55-1.30) L Estimat Glomerular Filtration Rate > 60 mL/min (>60) Glucose Level 171 MG/DL (74-106) H Uric Acid 4.2 MG/DL (2.6-7.2) Calcium Level 9.4 MG/DL (8.5-10.1) Phosphorus Level 3.1 MG/DL (2.5-4.9) Magnesium Level 2.1 MG/DL (1.8-2.4) Total Bilirubin 1.8 MG/DL (0.2-1.0) H Direct Bilirubin 1.5 MG/DL (0.0-0.3) H Aspartate Amino Transf (AST/SGOT) 583 U/L (15-37) H Alanine Aminotransferase (ALT/SGPT) 385 U/L (12-78) H Alkaline Phosphatase 665 U/L (46-116) H Troponin I 0.005 ng/mL (0.000-0.056) Total Protein 7.0 G/DL (6.4-8.2) Albumin 3.1 G/DL (3.4-5.0) L Globulin 3.9 g/dL Albumin/Globulin Ratio 0.8 (1.0-2.7) L Lipase 222 U/L (73-393) Microbiology Date/Time Source Procedure Growth Status 05/14/20 07:00 Urine,Clean Catch Urine Culture - Final Escherichia Coli Kat Parapsilosis Complete Objective pt seen persoanlly Manan Awan MD May 16, 2020 17:49
--- NOTE | 2020-05-16 18:54 | NUR ---
NURSE NOTES: Dr Awan visited pt and ordered to keep pt NPO till tomorrow. will continue to monitor.
--- NOTE | 2020-05-16 19:05 | NUR ---
NURSE NOTES: pt is tired and SPO2 dropped to 88%, TR is aware and changed T-Piece to AC. Will continue to close monitoring.
--- NOTE | 2020-05-16 19:20 | NUR ---
NURSE NOTES: Pt report received from Zenaida MATHEW. pt remains stable/ asymptomatic. pt is alert and oriented times 4, no change in mentation. pt is showing ST on the monitor, doctor is aware, no cardiac abnormalities noted. pt is sating 99% O2 on T piece, no acute signs symptom of resp distress noted. pt bed is low, locked, armed, call light within reach, bed rails up times 3. will follow plan of care.
--- NOTE | 2020-05-16 19:23 | NUR ---
NURSE HAND-OFF REPORT: Important Events on Shift:pt had acute pain R lower abd, abd ct done. pt was tachycardia and Dr Awan is aware and visited pt. Patient Status: Diet: Pending Orders: Pending Results/Labs: Pending MD notification: Latest Vital Signs: Temperature 97.3 , Pulse 113 , B/P 141 /83 , Respiratory Rate 20 , O2 SAT 100 , Mechanical Ventilator, O2 Flow Rate 10.0 . Vital Sign Comment: EKG Rhythm: Sinus Tachycardia Rhythm change?: N Notified?: Courtney Marinelli MD Response: No New Orders Received Latest Hassan Fall Score: 35 Fall Risk: Medium Risk Safety Measures: Call light Within Reach, Bed Alarm Zone 2, Side Rails Side Rails x3, Bed position Low and Locked. Fall Precautions: Yellow Socks Yellow Gown Door Sign Patient Fall Education Report given to . Pt is sleeping HR 105 SPO2 99% with AC, No stress noted, endorsed plan of care, endorsed to monitor spo2 and HR and keep pt NPO per Dr Aawn order till tomorrow.
[2020-05-16 20:00] VITALS: BP 129/75
[2020-05-16] MEDS: Dyna-Hex 2% Top Sol 2oz TOPIC SCH (21:26)
[2020-05-16] MEDS: Vancomycin 1.5gm/300ml Premix IVPB SCH (21:27)
[2020-05-17] VITALS: BP 126/70
[2020-05-17 04:00] VITALS: BP 136/73
[2020-05-17 05:09] LABS: BASOPHILS % (AUTO) 1.2 % (0.0-2.0); EOSINOPHILS % (AUTO) 1.4 % (0.0-3.0); HEMATOCRIT 30.4 % (42.0-52.0); HEMOGLOBIN 9.5 G/DL (14.2-18.0); MEAN CORPUSCULAR VOLUME 91 FL (80-99); MONOCYTES % (AUTO) 7.7 % (1.0-10.0); NEUTROPHILS % (AUTO) 79.7 % (45.0-75.0); PLATELET COUNT 327 K/UL (150-450); RED BLOOD COUNT 3.33 M/UL (4.70-6.10); RED CELL DISTRIBUTION WIDTH 15.4 % (11.6-14.8); WHITE BLOOD COUNT 9.4 K/UL (4.8-10.8)
[2020-05-17] MEDS: Vancomycin 1.5gm/300ml Premix IVPB SCH ×3 (05:14→22:08)
[2020-05-17 05:42] LABS: AMYLASE 42 U/L (25-115)
[2020-05-17 05:52] LABS: PHOSPHORUS 2.6 MG/DL (2.5-4.9)
[2020-05-17 06:08] LABS: ALANINE AMINOTRANSFERASE 357 U/L (12-78); ALBUMIN 2.4 G/DL (3.4-5.0); ALBUMIN/GLOBULIN RATIO 0.7 (1.0-2.7); ALKALINE PHOSPHATASE 582 U/L (46-116); ANION GAP 6 mmol/L (5-15); ASPARTATE AMINO TRANSFERASE 188 U/L (15-37); BILIRUBIN,TOTAL 1.7 MG/DL (0.2-1.0); BLOOD UREA NITROGEN 18 mg/dL (7-18); CALCIUM 8.8 MG/DL (8.5-10.1); CARBON DIOXIDE 29 MMOL/L (21-32); CHLORIDE 99 MMOL/L (98-107); CREATININE 0.3 MG/DL (0.55-1.30); POTASSIUM 3.9 MMOL/L (3.5-5.1); SODIUM 134 MMOL/L (136-145)
[2020-05-17 06:13] LABS: BILIRUBIN,DIRECT 1.4 MG/DL (0.0-0.3)
--- NOTE | 2020-05-17 07:02 | NUR ---
NURSE HAND-OFF REPORT: Important Events on Shift:[NA] Patient Status: [stable] Diet: [as per doctor order] Pending Orders: [NA] Pending Results/Labs:[na] Pending MD notification:[na] Latest Vital Signs: Temperature 97.5 , Pulse 90 , B/P 136 /73 , Respiratory Rate 18 , O2 SAT 99 , Mechanical Ventilator, O2 Flow Rate 10.0 . Vital Sign Comment: [stable] EKG Rhythm: Sinus Tachycardia Rhythm change?: N MD Notified?: Courtney Marinelli MD Response: No New Orders Received Latest Hassan Fall Score: 35 Fall Risk: Medium Risk Safety Measures: Call light Within Reach, Bed Alarm Zone 2, Side Rails Side Rails x3, Bed position Low and Locked. Fall Precautions: Yellow Socks Yellow Gown Door Sign Patient Fall Education Report given to [Zenaida RN].
--- NOTE | 2020-05-17 07:20 | NUR ---
NURSE NOTES: Received pt from PRIYANKA Posada, pt is sleeping, pt has trach to clotilde AC 18 TV 750 FIO2 35% PEEP 5, Pt has g tube in place is patent and pt is NPO, pt has Brownlee cath in place is working well. pt has PICC ALBERT ABX is running. no pain noted at this time. All needs attended, bed is locked and is in the lowest position, call light within easy reach. will continue to monitor.
[2020-05-17 07:58] VITALS: BP 139/77
--- NOTE | 2020-05-17 08:15 | NUR ---
NURSE NOTES: pt is on T-Piece now, YENI Marinelli visited pt and is aware about settings and also PA will F/U for diet with Dr Rausch. will continue to close monitoring.
[2020-05-17] MEDS: HYDROcodone/Acetamin 10/325 tab ORAL PRN ×2 (08:32→18:16)
--- NOTE | 2020-05-17 08:33 | NUR ---
RADIOLOGY DEPT., CHEST X-RAY DONE.-P.DYE
--- NOTE | 2020-05-17 08:45 | NUR ---
NURSE NOTES: pt complaining SOB, RT Cat is aware and fio2 increased to 80%, YENI Marinelli is aware. will continue close monitoring.
--- NOTE | 2020-05-17 08:49 | Pulmonology Progress Note ---
Subjective ROS Limited/Unobtainable: Yes Interval Events: S/p tracheostomy 04/25/20 Constitutional: Reports: other - + trach collar ; Denies: fever HEENT: Repors: no symptoms Respiratory: Reports: dry cough - improved, shortness of breath Cardiovascular: Reports: no symptoms Gastrointestinal/Abdominal: Reports: vomiting - resolved; Denies: nausea, diarrhea Psychiatric: Denies: depression Skin: Denies: rash Musculoskeletal: Denies: pain Allergies: Coded Allergies: No Known Allergies (Unverified , 02/05/20) Objective Last 24 Hour Vital Signs Date Time Temp Pulse Resp B/P (MAP) Pulse Ox O2 Delivery O2 Flow Rate FiO2 05/17/20 08:05 96 139/77 05/17/20 08:00 35 05/17/20 07:58 97.7 96 18 139/77 (97) 96 05/17/20 07:41 94 05/17/20 07:28 Mechanical Ventilator 05/17/20 04:00 90 05/17/20 04:00 97.5 112 18 136/73 (94) 99 05/17/20 04:00 35 05/17/20 04:00 T-piece 05/17/20 03:45 90 22 35 05/17/20 01:00 96 Mechanical Ventilator 35 05/17/20 00:00 101 05/17/20 00:00 35 05/17/20 00:00 T-piece 05/17/20 00:00 98.7 105 18 126/70 (88) 98 05/16/20 22:46 108 21 50 05/16/20 20:00 98.9 109 20 129/75 (93) 98 05/16/20 20:00 T-piece 05/16/20 20:00 106 05/16/20 19:54 40 05/16/20 19:34 95 Mechanical Ventilator 50 05/16/20 19:20 111 23 50 05/16/20 19:05 35 05/16/20 17:48 113 141/83 05/16/20 16:00 97.3 113 20 141/83 (102) 100 05/16/20 16:00 T-piece 05/16/20 16:00 10.0 40 05/16/20 15:43 119 05/16/20 13:06 130 155/101 05/16/20 13:00 98 T-Piece 10.0 80 05/16/20 12:00 96.6 127 20 150/100 (117) 98 05/16/20 12:00 T-piece 05/16/20 11:49 132 05/16/20 11:04 100 T-Piece 10.0 40 05/16/20 11:00 10.0 40 05/16/20 10:50 119 23 35 05/16/20 09:16 123 22 130/89 98 05/16/20 08:46 122 30 137/99 98 05/16/20 08:46 120 137/99 Intake and Output 05/16/20 05/17/20 19:00 07:00 Intake Total 475.000 ml Output Total 600 ml 1050 ml Balance -125.000 ml -1050 ml IV Total 475.000 ml Output Urine Total 600 ml 1050 ml # Voids 1 # Bowel Movements 1 General Appearance: WD/WN, no acute distress HEENT: normocephalic, atraumatic, status post trach Respiratory: chest wall non-tender Cardiovascular: normal rate, regular rhythm Abdomen: normal bowel sounds, soft, non tender, other - obese Extremities: other - L arm weakness and swelling without redness Laboratory Tests 05/16/20 20:00: Vancomycin Level Trough 8.1 05/17/20 05:00: White Blood Count 9.4, Red Blood Count 3.33L, Hemoglobin 9.5L, Hematocrit 30.4L, Mean Corpuscular Volume 91, Mean Corpuscular Hemoglobin 28.5, Mean Corpuscular Hemoglobin Concent 31.2L, Red Cell Distribution Width 15.4H, Platelet Count 327, Mean Platelet Volume 6.3L, Neutrophils (%) (Auto) 79.7H, Lymphocytes (%) (Auto) 10.0L, Monocytes (%) (Auto) 7.7, Eosinophils (%) (Auto) 1.4, Basophils (%) (Auto) 1.2, Sodium Level 134L, Potassium Level 3.9, Chloride Level 99, Carbon Dioxide Level 29, Anion Gap 6, Blood Urea Nitrogen 18, Creatinine 0.3L, Estimat Glomerular Filtration Rate > 60, Glucose Level 92, Calcium Level 8.8, Phosphorus Level 2.6, Magnesium Level 2.0, Total Bilirubin 1.7H, Direct Bilirubin 1.4H, Gamma Glutamyl Transpeptidase 969H, Aspartate Amino Transf (AST/SGOT) 188H, Alanine Aminotransferase (ALT/SGPT) 357H, Alkaline Phosphatase 582H, C-Reactive Protein, Quantitative 14.0H, Pro-B-Type Natriuretic Peptide 384H, Total Protein 5.9L, Albumin 2.4L, Globulin 3.5, Albumin/Globulin Ratio 0.7L, Amylase Level 42, Lipase 123 Current Medications Medications (Trade) Dose Ordered Sig/Dennis Route PRN Reason Start Time Stop Time Status Last Admin Dose Admin Acetaminophen (Tylenol) 650 mg Q4H PRN GT Mild Pain (Pain Scale 1-3) 05/02/20 08:45 06/01/20 08:44 05/08/20 20:28 Acetaminophen/ Hydrocodone Bitart ([place] 10/325) 1 tab Q4H PRN ORAL For Pain 05/16/20 09:45 05/23/20 09:44 05/16/20 10:03 Amlodipine Besylate (Norvasc) 2.5 mg BID GT 05/02/20 18:00 06/02/20 08:59 05/17/20 08:05 Barium Sulfate (Readi-Cat 2) 450 ml NOW PRN ORAL Radiology Procedure 05/16/20 11:30 05/18/20 11:29 Cefepime HCl 2 gm/ Dextrose 100 ml @ 200 mls/hr EVERY 8 HOURS IVPB 05/15/20 22:00 05/22/20 21:59 05/17/20 05:13 Chlorhexidine Gluconate (Marlen-Hex 2%) 1 applic DAILY@2000 TOPIC 03/30/20 20:00 06/28/20 19:59 05/16/20 21:26 Famotidine (Pepcid) 20 mg Q12HR PRN GT HEARTBURN 05/08/20 13:15 06/01/20 15:14 05/13/20 08:52 Hydralazine HCl (Apresoline) 10 mg Q4H PRN IV For High Blood Pressure 03/30/20 12:15 06/28/20 12:14 05/11/20 14:37 Lansoprazole (Prevacid) 30 mg DAILY GT 05/02/20 09:00 06/01/20 08:59 05/17/20 08:05 Metronidazole 100 ml @ 100 mls/hr Q8HR IVPB 05/16/20 14:00 05/23/20 13:59 05/17/20 05:13 Ondansetron HCl (Zofran) 4 mg Q6H PRN IVP Nausea & Vomiting 05/16/20 09:45 06/15/20 09:44 05/16/20 10:02 Prednisone (predniSONE) 5 mg DAILY GT 05/13/20 09:00 06/05/20 08:59 05/17/20 08:05 Quetiapine Fumarate (SEROqueL) 50 mg EVERY 8 HOURS GT 05/13/20 14:00 06/11/20 11:59 05/17/20 05:12 Vancomycin HCl 300 ml @ 150 mls/hr Q8H IVPB 05/16/20 22:00 05/21/20 21:59 05/17/20 05:14 Vancomycin HCl (Vanco pharmacy to dose) 1 ea DAILY PRN MISC Per rx protocol 05/15/20 18:45 06/14/20 18:44 Assessment/Plan Assessment/Plan 1.COVID-19 pneumonia. - Completed specific therapies - off solumedrol 20 Iv q 12 -> now on prednisone 5 mg PO QD - s/p bactrim for PJP prophylaxis 2. DVT ppx - on lovenox 3. Hypertension - On Norvasc 4. Leukocytosis; resolved - ID following - Off abx - Candidemia documented 03/18/20 5. Elevated LFT; still elevated but downtrending - positive Hep C; treated in the past with IF - Abd US, Abd CT don't show evidence of cholecystitis - Lipase/amylase wnl 6. Respiratory failure -Intubated 03/28/20; s/p tracheostomy 04/25/20 -Gradually weaned off sedation IOV 7. Left UE edema and weakness - CT head w/o contrast -> Negative for acute intracranial bleed or mass effect - hx of thrombosis -> on full dose Lovenox - no redness - monitor - seen by neuro 8. Pneumomediastinum - no PTX - will switch tracheostomy to trach collar 9. New onset vomiting with R sided abd pain - Abd US, abd CT - Zofran prn n/v - Dw surgery; monitor for now and resume GTF; will consider cholecystostomy tube if no improvement or worsens by Friday 10. Yeast UTI - ID following 11. BCx gram positive rods - ID following Will wean down FiO2 as tolerated CXR shows bilateral interstitial changes? fibrosis? S/p PEG Off IV fluids Dc planning to subacute -> ordered showcase trimmer consult for placement On seroquel 50 mg PO TID; On Ativan and [place] DC pending placement -> hold for now given new onset vomiting and abd pain The care of this patient was discussed with my supervising physician Time spent for this encounter was approximately 31 minutes Edilson Marinelli May 17, 2020 08:49
--- NOTE | 2020-05-17 09:40 | NUR ---
NURSE NOTES: Dr Rausch visited pt and RN asked him about diet, MD ordered still keep pt NPO, MD will F/U. Will continue close monitoring.
--- NOTE | 2020-05-17 10:05 | General Progress Note ---
Subjective ROS Limited/Unobtainable: Yes Allergies: Coded Allergies: No Known Allergies (Unverified , 02/05/20) Objective Last 24 Hour Vital Signs Date Time Temp Pulse Resp B/P (MAP) Pulse Ox O2 Delivery O2 Flow Rate FiO2 05/17/20 08:44 10.0 80 05/17/20 08:15 10.0 60 05/17/20 08:05 96 139/77 05/17/20 08:00 35 05/17/20 07:58 97.7 96 18 139/77 (97) 96 05/17/20 07:41 94 05/17/20 07:28 Mechanical Ventilator 05/17/20 04:00 90 05/17/20 04:00 97.5 112 18 136/73 (94) 99 05/17/20 04:00 35 05/17/20 04:00 T-piece 05/17/20 03:45 90 22 35 05/17/20 01:00 96 Mechanical Ventilator 35 05/17/20 00:00 101 05/17/20 00:00 35 05/17/20 00:00 T-piece 05/17/20 00:00 98.7 105 18 126/70 (88) 98 05/16/20 22:46 108 21 50 05/16/20 20:00 98.9 109 20 129/75 (93) 98 05/16/20 20:00 T-piece 05/16/20 20:00 106 05/16/20 19:54 40 05/16/20 19:34 95 Mechanical Ventilator 50 05/16/20 19:20 111 23 50 05/16/20 19:05 35 05/16/20 17:48 113 141/83 05/16/20 16:00 97.3 113 20 141/83 (102) 100 05/16/20 16:00 T-piece 05/16/20 16:00 10.0 40 05/16/20 15:43 119 05/16/20 13:06 130 155/101 05/16/20 13:00 98 T-Piece 10.0 80 05/16/20 12:00 96.6 127 20 150/100 (117) 98 05/16/20 12:00 T-piece 05/16/20 11:49 132 05/16/20 11:04 100 T-Piece 10.0 40 05/16/20 11:00 10.0 40 05/16/20 10:50 119 23 35 Intake and Output 05/16/20 05/17/20 19:00 07:00 Intake Total 475.000 ml Output Total 600 ml 1050 ml Balance -125.000 ml -1050 ml IV Total 475.000 ml Output Urine Total 600 ml 1050 ml # Voids 1 # Bowel Movements 1 Laboratory Tests 05/16/20 20:00: Vancomycin Level Trough 8.1 05/17/20 05:00: White Blood Count 9.4, Red Blood Count 3.33L, Hemoglobin 9.5L, Hematocrit 30.4L, Mean Corpuscular Volume 91, Mean Corpuscular Hemoglobin 28.5, Mean Corpuscular Hemoglobin Concent 31.2L, Red Cell Distribution Width 15.4H, Platelet Count 327, Mean Platelet Volume 6.3L, Neutrophils (%) (Auto) 79.7H, Lymphocytes (%) (Auto) 10.0L, Monocytes (%) (Auto) 7.7, Eosinophils (%) (Auto) 1.4, Basophils (%) (Auto) 1.2, Sodium Level 134L, Potassium Level 3.9, Chloride Level 99, Carbon Dioxide Level 29, Anion Gap 6, Blood Urea Nitrogen 18, Creatinine 0.3L, Estimat Glomerular Filtration Rate > 60, Glucose Level 92, Calcium Level 8.8, Phosphorus Level 2.6, Magnesium Level 2.0, Total Bilirubin 1.7H, Direct Bilirubin 1.4H, Gamma Glutamyl Transpeptidase 969H, Aspartate Amino Transf (AST/SGOT) 188H, Alanine Aminotransferase (ALT/SGPT) 357H, Alkaline Phosphatase 582H, C-Reactive Protein, Quantitative 14.0H, Pro-B-Type Natriuretic Peptide 384H, Total Protein 5.9L, Albumin 2.4L, Globulin 3.5, Albumin/Globulin Ratio 0.7L, Amylase Level 42, Lipase 123 Height (Feet): 5 Height (Inches): 10.00 Weight (Pounds): 243 General Appearance: alert EENT: normal ENT inspection Neck: supple Cardiovascular: normal rate Respiratory/Chest: decreased breath sounds Abdomen: hypoactive bowel sounds Extremities: non-tender Assessment/Plan Status: stable, unchanged Assessment/Plan: abd pain vomiting elevated LFTS GTF abd us>>>reviewed CT>>>reviewed repeat labs fu surg recs swallow Da Yanes MD May 17, 2020 10:05
[2020-05-17] MEDS: LORazepam 1mg tab GT PRN ×2 (10:15→17:40)
[2020-05-17] MEDS ORDERED: Varibar Honey 250ml MC PRN (10:15)
[2020-05-17] MEDS ORDERED: Varibar Nectar 240ml MC PRN (10:15)
[2020-05-17] MEDS ORDERED: Varibar Thin Liquid powder 148gm MC PRN (10:15)
[2020-05-17] MEDS ORDERED: Varibar Pudding 230ml MC PRN (10:15)
--- NOTE | 2020-05-17 10:25 | NUR ---
NURSE NOTES: feeding started with 20cc/hr and if pt tolerate will increase to goal. will continue to monitor.
--- NOTE | 2020-05-17 11:19 | Nephrology Progress Note ---
Assessment/Plan Problem List: (1) Dehydration (2) Electrolyte imbalance (3) COVID-19 virus infection (4) Pneumonia (5) DMII (diabetes mellitus, type 2) (6) Protein malnutrition Assessment Azotemia, hypernatremia Hypoalbuminemia Staff Otilia bacteremia COVID-19 isolation, pneumonia, bilateral infiltrate Hypertension Diabetes mellitus History of smoking Plan May 17: Patient seen. Discussed with PRIYANKA Estevez. Patient clinically improved. Liver enzymes and lower. Renal parameters stable. White blood cells within normal limit. Continue per consultants. May 16: Renal parameters stable. Acute elevation in liver function tests White BC with right-sided abdominal pain. Likely acute Karen cystitis. Continue per GI/surgery. Medication list reviewed. Continue to monitor electrolytes and renal parameters. May 15: Labs reviewed. Renal parameters stable. Patient remains full code. Is trached to vent and has PEG. May 14: Labs reviewed. Stable renal parameters. May 13: No labs drawn today. Stable from renal standpoint of view. Continue per consultants. May 12: Labs reviewed. Renal parameters stable. Status quo. Continue per consultants. May 11: No labs drawn today. Will check can panel tomorrow. Medication list reviewed. Patient remains full code. Continue per consultants. May 10: Labs reviewed. Serum sodium higher. Renal parameters and electrolytes stable. Medication list reviewed. Continue per consultants. May 09: Labs reviewed. Serum sodium 135. Continue to monitor electrolytes. Medication list reviewed. Continue per current management. May 08: Labs reviewed. Renal parameters stable. Medication list reviewed. Continue per consultants. May 07: No labs drawn today reviewed. Clinically stable. Medication list reviewed. Will check lab tomorrow. Continue per consultants. May 06: Labs reviewed. Renal parameters stable. Continue per consultants. May 05: Labs reviewed. Renal parameters stable. Patient is due to be transferred to [facility]. Continue per consultants. Medication list reviewed. May 04: Labs reviewed. Renal parameters stable. Overall status unchanged. Remains full code. Fed through GT tube. Trach to vent. FiO2 45%. Continue per consultants. May 03: No CHEM panel drawn today. Patient clinically stable. Has trach to vent and PEG. Will check lab tomorrow. May 02: Labs reviewed. Status quo. Patient is trached and vented. Also has PEG. Is full code. Stable from renal standpoint of view. May 01: Labs reviewed. Status quo. Patient has trach connected to vent. Has PEG. He is full code. FiO2 50%. April 30: Status quo. Labs reviewed. Renal parameters stable. Medication list reviewed. April 29: Status quo. Received PEG yesterday. Has trach connected to vent. FiO2 40%. Labs reviewed. Medication list reviewed. Continue same April 28: Status quo. Labs reviewed. Renal parameters stable. Patient n.p.o. due for PEG insertion. IV changed to D5 normal saline. Continue per consultants. April 27: Status quo. Labs reviewed. Medication list reviewed. Stable from renal standpoint of view. Abnormal electrolytes addressed. April 26: Patient is now trached and connected to vent. FiO2 70%. Labs reviewed. Renal parameters stable. Medication list reviewed. Continue per consultants. April 25: Status quo. Full code. FiO2 55%. No labs drawn today. Continue to monitor electrolytes and renal parameters. Continue per consultants. April 24: Status quo. Full code. Intubated on ventilator. FiO2 65%. Labs reviewed. Renal parameters and electrolytes stable. April 23: Status unchanged. Full code. Intubated on ventilator. FiO2 75%. Labs reviewed. Renal parameters stable. Continue per consultants. April 22: Labs reviewed. Patient remains intubated on ventilator and full code. FiO2 90%. Day 77 hospitalization. Not much to add from renal standpoint of view April 21: No CHEM panel drawn today. FiO2 60%. Patient full code. Continue per consultants. April 20: Labs reviewed. Renal parameters stable. Patient remains full code. Intubated on ventilator with FiO2 currently at 70%. Continue per consultants. April 19: No labs drawn today. Remains full code on FiO2 of 100%. Continue per consultants. April 18: Status quo. Labs reviewed. Renal parameters stable. April 17: Status quo. Intubated on ventilator. Full code. Labs reviewed. Electrolytes and renal parameters stable. Continue per consultants. April 16: Girlfriend in the room. Patient awake. Intubated. Full code. Labs reviewed. Abnormal electrolyte addressed. Continue per consultants. April 15: Labs reviewed. Electrolytes and renal parameters stable. Patient full code. Continues to be intubated on ventilator. April 14: Status quo. Labs reviewed. Remains intubated on ventilator. Full code. Continue per consultants. April 13: Status quo. Labs reviewed. Renal parameters electrolytes stable. Continue per current treatment plan. April 12: On higher FiO2. Will resume Lasix daily. Continue to monitor electrolytes and renal parameters. Per consultants. April 11: FiO2 went up to 85%. Renal parameters and electrolytes reasonably well-maintained. Will monitor serum potassium. Will give IV Lasix. April 10: Status quo. Labs reviewed. Remains intubated on ventilator with FiO2 of 65%. Remains full code. Stable from renal standpoint to view. Repeat vitamin D level on April 08 pending April 09: Status quo. Labs reviewed. Stable from renal standpoint of view. Continue per consultants. April 08: Discussed with RN. Labs reviewed. Clinically improving. Requires lower PEEP. Continue per pulmonary. Continue to monitor renal parameters. April 07: Remains full code and on ventilator. Labs reviewed. Renal parameters and electrolytes stable. Continue per consultants. Blood pressure marginally improved. April 06: Full code. On ventilator. Blood pressure 80-90 systolic. IV Lasix discontinued. Free water through tube feeding ordered. Continue to monitor electrolytes and serum sodium. Down on fentanyl as possible. Discussed with PRIYANKA Brown. Clonidine patch discontinued. April 05: Status quo. Remains full code. Remains intubated. Labs reviewed. Renal parameters stable. Serum sodium 150 unchanged. Continue per consultants. April 04: Remains intubated and on ventilator. Remains full code. Labs reviewed. Serum sodium 150 unchanged. Renal parameters stable. Continue per ID and pulmonary. April 03: Intubated. On ventilator. Full code. Labs reviewed. Serum sodium 150 unchanged. Continue to monitor renal parameters. Continue per pulmonary and ID. April 02: Full code. On ventilator. Discussed with RN. Serum sodium slightly higher. Will cut down on IV Lasix. Continue per consultants. Continue to monitor renal parameters and electrolytes. April 01: Full code. Remains on ventilator. Labs reviewed. Stable from renal standpoint of view. Continue per consultants. March 31: Full code . Remains intubated on ventilator. Labs reviewed. Patient appears toxic. Discussed with RN. Maintenance IV discontinued. Medication list reviewed. Blood pressure medication stopped due to low blood pressure. Levemir insulin stopped. Continue monitor blood sugar and sliding scale insulin. March 30: Full code. On ventilator. Labs reviewed. Clonidine patch dose increased. Lasix increased. 3% saline 1 time ordered. Continue to monitor electrolytes and renal parameters. March 29: Remains full code. On mechanical ventilation. On tube feeding. Will DC TPN. Will start on maintenance IV fluid. Continue to monitor renal parameters. March 28: On BiPAP. Full code. On TPN. Labs reviewed. Discussed with pharmacy. Continue as is. Watch serum potassium. March 27: Remains on BiPAP. No chemistry panel done today. Full code. On TPN. Will check lab tomorrow. March 26: Remains on BiPAP. Remains on TPN. Labs reviewed. Electrolytes and chemistries within normal limits. Continue as is. March 25: Remains on TPN. Labs reviewed. Discussed with pharmacy. Change IV Protonix to p.o. Continue 3% saline infusion with Lasix. Patient full code. March 24: Continue to be on TPN. Labs are reviewed. Aim to collect electrolytes. Discussed with pharmacy. Continue current consultants. March 23: Continues to be on TPN. Labs reviewed. Electrolytes and chemistries all acceptable. Discussed with pharmacy. Continue current management. March 22: On TPN. Labs reviewed. Low sodium noted. 3% saline to be continued. Continue to monitor electrolytes. Discussed with pharmacy. March 21: On TPN. Labs reviewed. Continue 3% saline and Lasix for mild hyponatremia. Continue TPN as these. Discussed with pharmacy. March 20: Remains on TPN. Labs reviewed. Serum sodium higher on IV Lasix and 3% saline infusion. Continue TPN as is. Continue to monitor renal parameters and electrolytes. Discussed with Dr. Mata March 19: Remains on TPN. Labs reviewed. Serum sodium 128. Will give 3% saline with IV Lasix. Continue to monitor electrolytes. No change in TPN composition. Discussed with pharmacy. March 18: Remains on TPN. Labs reviewed. Discussed with pharmacist. Will give 3 doses of IV Lasix 20 mg every 8 hours. Continue to monitor serum sodium electrolytes uric acid. White blood cells down. Continue per consultants. March 17: On TPN. Labs reviewed. Discussed with pharmacist. Sodium content increase. Continue to monitor CMP. Patient continues to have leukocytosis. March 16: On TPN. Labs reviewed. Discussed with pharmacist. Appropriate changes made. Continue to monitor electrolytes. March 15: Remains on TPN. Labs reviewed. Discussed with pharmacist. Continue per current management. [place] 12: Remains on TPN. Labs reviewed, stable. Vitamin D level low, replacement ordered. Continue to monitor electrolytes and renal parameters. March 13: Patient remains on TPN. Discussed with pharmacist. TPN's sodium content adjusted. Labs reviewed. Continue to monitor electrolytes. Blood pressure remains stable. Continue per consultants. March 12: Patient on TPN. Labs reviewed. CPK remains elevated. Abnormal electrolytes and high blood sugar discussed with pharmacist and TPN adjusted. Continue to monitor labs. Oral Protonix added. Ibuprofen discontinued. Can continue to monitor electrolytes and chemistries. Levemir for high blood sugar added. March 11: Patient on TPN. Labs as of 11:15 AM is still pending. Continue per current treatment plan. Will check labs and adjust TPN as needed. Continue per consultants. March 10: Patient on TPN. Labs reviewed. Electrolytes overall stable. CPK is elevated. Will monitor electrolyte, CPK level, lipid panel. Continue per consultants. Discussed with pharmacist. Discussed with RN. Nutritional evaluation noted. Previously: D5W 100 cc an hour Monitor electrolytes renal parameters TPN and Intralipid ordered Will follow Continue per consultants Dietary consult requested Subjective ROS Limited/Unobtainable: Yes Objective Objective Last 24 Hour Vital Signs Date Time Temp Pulse Resp B/P (MAP) Pulse Ox O2 Delivery O2 Flow Rate FiO2 05/17/20 10:45 109 20 130/74 95 05/17/20 10:15 116 20 135/76 93 05/17/20 08:44 10.0 80 05/17/20 08:15 10.0 60 05/17/20 08:05 96 139/77 05/17/20 08:00 35 05/17/20 07:58 97.7 96 18 139/77 (97) 96 05/17/20 07:41 94 05/17/20 07:28 Mechanical Ventilator 05/17/20 04:00 90 05/17/20 04:00 97.5 112 18 136/73 (94) 99 05/17/20 04:00 35 05/17/20 04:00 T-piece 05/17/20 03:45 90 22 35 05/17/20 01:00 96 Mechanical Ventilator 35 05/17/20 00:00 101 05/17/20 00:00 35 05/17/20 00:00 T-piece 05/17/20 00:00 98.7 105 18 126/70 (88) 98 05/16/20 22:46 108 21 50 05/16/20 20:00 98.9 109 20 129/75 (93) 98 05/16/20 20:00 T-piece 05/16/20 20:00 106 05/16/20 19:54 40 05/16/20 19:34 95 Mechanical Ventilator 50 05/16/20 19:20 111 23 50 05/16/20 19:05 35 05/16/20 17:48 113 141/83 05/16/20 16:00 97.3 113 20 141/83 (102) 100 05/16/20 16:00 T-piece 05/16/20 16:00 10.0 40 05/16/20 15:43 119 05/16/20 13:06 130 155/101 05/16/20 13:00 98 T-Piece 10.0 80 05/16/20 12:00 96.6 127 20 150/100 (117) 98 05/16/20 12:00 T-piece 05/16/20 11:49 132 Intake and Output 05/16/20 05/17/20 19:00 07:00 Intake Total 475.000 ml Output Total 600 ml 1050 ml Balance -125.000 ml -1050 ml IV Total 475.000 ml Output Urine Total 600 ml 1050 ml # Voids 1 # Bowel Movements 1 Current Medications Medications (Trade) Dose Ordered Sig/Dennis Route PRN Reason Start Time Stop Time Status Last Admin Dose Admin Acetaminophen (Tylenol) 650 mg Q4H PRN GT Mild Pain (Pain Scale 1-3) 05/02/20 08:45 06/01/20 08:44 05/08/20 20:28 Acetaminophen/ Hydrocodone Bitart ([place] 10/325) 1 tab Q4H PRN ORAL For Pain 05/16/20 09:45 05/23/20 09:44 05/17/20 08:32 Amlodipine Besylate (Norvasc) 2.5 mg BID GT 05/02/20 18:00 06/02/20 08:59 05/17/20 08:05 Barium Sulfate (Readi-Cat 2) 450 ml NOW PRN ORAL Radiology Procedure 05/16/20 11:30 05/18/20 11:29 Barium Sulfate (Varibar Honey) 250 ml NOW PRN MC RAD 05/17/20 10:15 05/20/20 10:13 Barium Sulfate (Varibar [place]) 240 ml NOW PRN MC RAD 05/17/20 10:15 05/20/20 10:13 Barium Sulfate (Varibar Pudding) 230 ml NOW PRN RAD 05/17/20 10:15 05/20/20 10:13 Barium Sulfate (Varibar Thin Liquid powder) 148 gm NOW PRN RAD 05/17/20 10:15 05/20/20 10:13 Cefepime HCl 2 gm/ Dextrose 100 ml @ 200 mls/hr EVERY 8 HOURS IVPB 05/15/20 22:00 05/22/20 21:59 05/17/20 05:13 Chlorhexidine Gluconate (Marlen-Hex 2%) 1 applic DAILY@2000 TOPIC 03/30/20 20:00 06/28/20 19:59 05/16/20 21:26 Famotidine (Pepcid) 20 mg Q12HR PRN GT HEARTBURN 05/08/20 13:15 06/01/20 15:14 05/13/20 08:52 Hydralazine HCl (Apresoline) 10 mg Q4H PRN IV For High Blood Pressure 03/30/20 12:15 06/28/20 12:14 05/11/20 14:37 Ipratropium [place] (Atrovent) 500 mcg Q6H PRN HHN Shortness of Breath 05/17/20 09:00 05/22/20 08:59 Lansoprazole (Prevacid) 30 mg DAILY GT 05/02/20 09:00 06/01/20 08:59 05/17/20 08:05 Lorazepam (Ativan) 1 mg Q6H PRN GT For Anxiety 05/17/20 08:59 05/24/20 08:58 05/17/20 10:15 Metronidazole 100 ml @ 100 mls/hr Q8HR IVPB 05/16/20 14:00 05/23/20 13:59 05/17/20 05:13 Ondansetron HCl (Zofran) 4 mg Q6H PRN IVP Nausea & Vomiting 05/16/20 09:45 06/15/20 09:44 05/16/20 10:02 Prednisone (predniSONE) 5 mg DAILY GT 05/13/20 09:00 06/05/20 08:59 05/17/20 08:05 Quetiapine Fumarate (SEROqueL) 50 mg EVERY 8 HOURS GT 05/13/20 14:00 06/11/20 11:59 05/17/20 05:12 Vancomycin HCl 300 ml @ 150 mls/hr Q8H IVPB 05/16/20 22:00 05/21/20 21:59 05/17/20 05:14 Vancomycin HCl (Vanco pharmacy to dose) 1 ea DAILY PRN MISC Per rx protocol 05/15/20 18:45 06/14/20 18:44 Laboratory Tests 05/16/20 20:00: Vancomycin Level Trough 8.1 05/17/20 05:00: White Blood Count 9.4, Red Blood Count 3.33L, Hemoglobin 9.5L, Hematocrit 30.4L, Mean Corpuscular Volume 91, Mean Corpuscular Hemoglobin 28.5, Mean Corpuscular Hemoglobin Concent 31.2L, Red Cell Distribution Width 15.4H, Platelet Count 327, Mean Platelet Volume 6.3L, Neutrophils (%) (Auto) 79.7H, Lymphocytes (%) (Auto) 10.0L, Monocytes (%) (Auto) 7.7, Eosinophils (%) (Auto) 1.4, Basophils (%) (Auto) 1.2, Sodium Level 134L, Potassium Level 3.9, Chloride Level 99, Carbon Dioxide Level 29, Anion Gap 6, Blood Urea Nitrogen 18, Creatinine 0.3L, Estimat Glomerular Filtration Rate > 60, Glucose Level 92, Calcium Level 8.8, Phosphorus Level 2.6, Magnesium Level 2.0, Total Bilirubin 1.7H, Direct Bilirubin 1.4H, Gamma Glutamyl Transpeptidase 969H, Aspartate Amino Transf (AST/SGOT) 188H, Alanine Aminotransferase (ALT/SGPT) 357H, Alkaline Phosphatase 582H, C-Reactive Protein, Quantitative 14.0H, Pro-B-Type Natriuretic Peptide 384H, Total Protein 5.9L, Albumin 2.4L, Globulin 3.5, Albumin/Globulin Ratio 0.7L, Amylase Level 42, Lipase 123 Height (Feet): 5 Height (Inches): 10.00 Weight (Pounds): 243 General Appearance: no apparent distress EENT: other - Trach to vent Cardiovascular: tachycardia Respiratory/Chest: decreased breath sounds Abdomen: distended Rubin Cooper MD May 17, 2020 11:19
--- NOTE | 2020-05-17 11:41 | Neurology Progress Note ---
Interim History Interim History ROS Limited/Unobtainable: Yes Events: no complaints, watching tv Objective Physical Exam Last Vital Signs Date Time Temp Pulse Resp B/P (MAP) Pulse Ox O2 Delivery O2 Flow Rate FiO2 05/17/20 10:45 109 20 130/74 95 05/17/20 08:44 10.0 80 05/17/20 07:58 97.7 05/17/20 07:28 Mechanical Ventilator Laboratory Tests Test 05/16/20 20:00 05/17/20 05:00 Vancomycin Level Trough 8.1 ug/mL (5.0-12.0) White Blood Count 9.4 K/UL (4.8-10.8) Red Blood Count 3.33 M/UL (4.70-6.10) L Hemoglobin 9.5 G/DL (14.2-18.0) L Hematocrit 30.4 % (42.0-52.0) L Mean Corpuscular Volume 91 FL (80-99) Mean Corpuscular Hemoglobin 28.5 PG (27.0-31.0) Mean Corpuscular Hemoglobin Concent 31.2 G/DL (32.0-36.0) L Red Cell Distribution Width 15.4 % (11.6-14.8) H Platelet Count 327 K/UL (150-450) Mean Platelet Volume 6.3 FL (6.5-10.1) L Neutrophils (%) (Auto) 79.7 % (45.0-75.0) H Lymphocytes (%) (Auto) 10.0 % (20.0-45.0) L Monocytes (%) (Auto) 7.7 % (1.0-10.0) Eosinophils (%) (Auto) 1.4 % (0.0-3.0) Basophils (%) (Auto) 1.2 % (0.0-2.0) Sodium Level 134 MMOL/L (136-145) L Potassium Level 3.9 MMOL/L (3.5-5.1) Chloride Level 99 MMOL/L (98-107) Carbon Dioxide Level 29 MMOL/L (21-32) Anion Gap 6 mmol/L (5-15) Blood Urea Nitrogen 18 mg/dL (7-18) Creatinine 0.3 MG/DL (0.55-1.30) L Estimat Glomerular Filtration Rate > 60 mL/min (>60) Glucose Level 92 MG/DL (74-106) Calcium Level 8.8 MG/DL (8.5-10.1) Phosphorus Level 2.6 MG/DL (2.5-4.9) Magnesium Level 2.0 MG/DL (1.8-2.4) Total Bilirubin 1.7 MG/DL (0.2-1.0) H Direct Bilirubin 1.4 MG/DL (0.0-0.3) H Gamma Glutamyl Transpeptidase 969 U/L (5-85) H Aspartate Amino Transf (AST/SGOT) 188 U/L (15-37) H Alanine Aminotransferase (ALT/SGPT) 357 U/L (12-78) H Alkaline Phosphatase 582 U/L (46-116) H C-Reactive Protein, Quantitative 14.0 mg/dL (0.00-0.90) H Pro-B-Type Natriuretic Peptide 384 pg/mL (0-125) H Total Protein 5.9 G/DL (6.4-8.2) L Albumin 2.4 G/DL (3.4-5.0) L Globulin 3.5 g/dL Albumin/Globulin Ratio 0.7 (1.0-2.7) L Amylase Level 42 U/L (25-115) Lipase 123 U/L (73-393) Neurologic Exam Objective PHYSICAL EXAMINATION: General: Pt is awake oriented and has insight to situation. Neuro: resting in bed watching television,Awake,alert oriented x4 language parameters intact, Comprehension intact PERRLA, No nystagmus with gaze. No facial droop tongue is midline. Hearing intact. No involuntary movement, bedbound gait not tested. Right upper extremity 3/5, left upper extremity unable to move, raise and squeeze my hand bilateral lower extremities 1/5. Impression/Recommendations Status: stable, unchanged Diagnostic Impression LABORATORY DATA: Reviewed. IMAGING CT Head: Negative for acute intracranial bleed or mass effect Mild frontal cortical volume loss Cervical soft tissue emphysema, also reported on recent chest radiograph Assessment and Rec's: 1. Left Upper Extremity weakness --> edema, unable to raise arm noted that the has left subclavian vein thrombosis --> CT Head imaging reviewed as above --> Check MRI Brain to rule out Stroke 2. Covid 19 Disease, complicated --> s/p treatment. 3. 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 Smoker. 4. PNA Covid 19 Thank you for allowing us to participate in patient's care, Plan of care was reviewed with Dr. Manoj Lopez and he agrees with plan of care. Nina Zafar NP May 17, 2020 11:41
[2020-05-17 11:45] VITALS: BP 129/71
--- NOTE | 2020-05-17 12:14 | NUR ---
NURSE NOTES: Spoke to Fatmata from radiology,we don't have MRI,if needed patient can go to [facility],REWRITER Nina Zafar notified
--- NOTE | 2020-05-17 13:14 | NUR ---
INSURANCE CLINCALS FAXED TO [employer] T: [phone] #1 F: [phone] AND [employer] SUPERVISOR:JACQUELINE JAMES T: [phone] F: [phone]
--- NOTE | 2020-05-17 13:35 | NUR ---
RESPIRATORY NOTE: Pt is currently on PMV, speech therapist Jacinto at bedside. No SOB noted. SpO2>92%. PMV/T-Bar as tolerated. Will continue to monitor.
--- NOTE | 2020-05-17 13:47 | NUR ---
Speech Pathology Note (Passy Success Speaking Valve and Bedside Dysphagia Evaluation) Brief Note: Pt presented ED at [facility] on 02/05/2020 for chest pain. CTA revealed No evidence of PE, but bilateral ground-glass and consolidating infiltrate. The 3rd COVID 19 test came out to be positive and treatment of focus was shifted. 02/22/2020: BiPAP needs 03/10/2020: TPN 03/20/2020: elevated LFT 03/28/2020: Intubated and bronchoscopy 03/29/2020: OG feeding 04/26/2020: Tracheostomy Shiley 8 04/28/2020: EGD and PEG Progressing to vent wean and currently Fio2 60% with T-Tube Current labs (05/17/2020) CBC: 9.4/9.5/30.4/327 Electrolytes: 134/3.9/99/29/18/0.3/92 LFT: ALT/ AST: 357/188, Alk Phos: 582 Vital Signs; Hr 105, Spo2 96% on 60% FIo2 via T piece I discussed with RT over the phone that patient will need passy melissa speaking valve. There was one in stock in house. RT at his bedside during PMSV and swallowing evaluation. Findings/Interpretation: 1. Appeared to be functional laryngeal integrity to protect his air way and phonate without any intubation injury 2. Able to tolerate PMSV with trach mask with FiO2 60% to maintain SPo2 96% 3. Quick desaturation to mid 70's with tracheal suction, able to bring back up to 96 within 5 minutes with concentration and breathing and support by staff 4. Functional Oropharyngeal motility and laryngeal integrity for PO intake (oral gradification with ice chips for now) 5. Left arm weakness 6. Oriented to self, place situation Plan/Recommendation: 1. No indication of direct visualization with laryngoscope 2. PMSV during a day with trach mask 3. Careful suction, minimize frequency for suction (cough and swallow his secretion_ -Strict aspiration precaution 4. PO for oral gradification with ice chips/popsicle for now 5. Follow up with clinical observation 6. Re-orientation Procedure: Mr. Horta presented with tracheostomy tube shiley 8 DCT cuff was inflated. The Fio2 60% was provided via T piece. The Spo2 was 96% and HR was 105 upon entry. Respiratory therapist, arrived in room with PMSV. The tracheal suction, careful oropharyngeal suction was completed upon cuff deflation. Desaturation to 86 was noted at this time. I observed a few minutes. The spo2 went up to 91. I decided to increase to FIO2 100 % for PMSV placement. I placed PMSV and FIo2 was given 100% directly from line. He was able to vocalize and Spo2 was gradually went up to 100%. During this time, he was verbally expressing himself to convey his feeling and thoughts. He was able to maintain saturation 98~100% during this period for about 15 minutes. His heat rate elevated to 125 at a time of desaturation. This came down to 105 when he relaxed. I discussed with him about my impression and recommendation as described above. I will follow up speech/swallow/Voice/Passy Melissa speaking therapy 2~3wk while he is at [place]. Possible LTAC discharge to [facility] ([facility]) is my personal recommendation for Complete vent wean and decannulation. Dannielle Bonds
[2020-05-17 16:00] VITALS: BP 123/84
--- NOTE | 2020-05-17 16:13 | NUR ---
NURSE NOTES:WOUND CARE FOLLOW-UP NOTES:Pt wounds are resolving: No evidence of skin breakdown under tracheal collar. Sacrum is dry with darker skin tone noted. No erythema,induration or fluctuance noted. Unstageable Pressure Injury R ischium(L)3.7cm x (W)1.6cm. Base of wound is 80% slough,10% re-epithelialized. Hyperpigmentation periwound . NO odor or exudate noted. Unstageable Pressure Injury Scrotum(L)0.8cm x (W)0.7cm. Base of Pressure Injury is 75% slough,25% re-epithelialized. No odor or exudate noted. No evidence of skin breakdown periwound. Unstageable Pressure Injury lateral/Plantar R foot . Base of wound is 100% dry eschar. Edges are adherent to base of wound. No erythema,induration or fluctuance periwound. Unstageable Pressure Injury distal/plantar R foot (L)Base of wound is 100% dry eschar. Edges are adherent to base of wound. NO evidence of erythema,induration,or fluctuance periwound Both heels are dry ,flaky but easily blanchable. DTPI lateral L foot has resolved. Darker skin tone without erythema,induration or fluctuance. All wound Tx are effective and continued as ordered. All wound prevention protocols continued as care-planned.
--- NOTE | 2020-05-17 17:01 | Diagnostic Imaging Report ---
Indication: Left-sided weakness Technique: Spiral acquisitions obtained through the brain pre- and post-IV contrast administration. Angled axial and coronal 5 x 5 mm slices reconstructed. Total dose length product 2091 mGycm. CTDIvol(s) 53 x 2 mGy. Dose reduction achieved using automated exposure control Comparison: Noncontrast head CT dated 05/15/2020 Findings: On the precontrast images, there is some focal lucency in the right frontal deep white matter which is equivocally slightly more well-defined than on the prior study periventricular low-attenuation on the right is also slightly more well-defined. Elsewhere, there is periventricular deep white matter low-attenuation which appears similar to the prior exam. No definite acute edema or hemorrhage. No mass effect nor midline shift. Otherwise normal mata-white differentiation. There is very mild prominence of the ventricles and extra axial CSF spaces. On the postcontrast images, no abnormal contrast enhancement is demonstrated. There is bilateral mastoid opacification again demonstrated, appears similar in extent to the previous study. There is sphenoid and ethmoid sinus mucosal disease which appears similar to the prior exam. The calvarium is intact. Impression: Very questionable slightly more prominent right frontal deep white matter low-attenuation, if real could represent an evolving lacunar infarct rather than just routine deep white matter ischemic change. If clinically indicated, MRI may be useful to clarify Otherwise unchanged noncontrast findings, since 05/15/2020, with mild age-related volume loss and periventricular deep white matter ischemic change. No unusual contrast enhancing lesion demonstrated. Findings discussed by phone with Dr. Lopez's PA at the time of interpretation The CT scanner at [facility] is accredited by the [employer] and the scans are performed using protocols designed to limit radiation exposure to as low as reasonably achievable to attain images of sufficient resolution adequate for diagnostic evaluation.
--- NOTE | 2020-05-17 17:02 | Diagnostic Imaging Report ---
Indication: Cough Technique: One view of the chest Comparison: 05/14/2020 Findings: Bilateral infiltrates are unchanged. Pneumomediastinum and subcutaneous emphysema in the right chest wall and bilateral supraclavicular fossae, emphysema within the neck are all again demonstrated, slightly improved. No gross pneumothorax. Normal heart size. Tracheostomy again demonstrated. Impression: Slightly improved subcutaneous emphysema. Otherwise little knife changer 3 days
--- NOTE | 2020-05-17 17:16 | Infectious Diseases Prog Note ---
Assessment/Plan Assessment/Plan ASSESSMENT AND PLAN: 1. hx staph aureus bacteremia/mssa - s/p tx covid-19 +, hypoxia, sob, chest x-ray worse, ? PE, ? HCAP/aspiration pna trach/vent, joseph pneumomediastinum, chest x-ray infiltrates worse - ? new hcap/aspiration pna e.coli uti, urine yeast likely a colonizer, sepsis, leukocytosis possible cholecystitis, abdominal pain, elevated lft's, abdominal CT and US noted 1/4 diphtheroids blood culture likely contaminant, f/u blood cultures ordered - vancomycin, cefepime, flagyl - f/u on sputum culture and blood cultures - monitor labs and chest x-ray - surgery f/u and work-up - pulmonary f/u 2. covid-19 isolation removed - covid-19 recovered 3. Hypertension history. Blood pressure treatment primary care team. 4. Elevated blood sugars. Blood sugar treatment per primary care team. 5. No known drug allergies. 6. Social history is positive for smoking. 7. Family history is noncontributory. 8. MAR was noted. 9. Case was discussed with RN. 10. Continue treatment per primary consultants. Subjective Constitutional: Reports: fatigue; Denies: fever HEENT: Reports: congestion Respiratory: Reports: shortness of breath Cardiovascular: Denies: chest pain Gastrointestinal/Abdominal: Reports: other - less abdominal pain today ; Denies: nausea, vomiting, diarrhea Genitourinary: Reports: other - + joseph Neurologic: Denies: headache Psychiatric: Denies: depression Skin: Denies: rash Hematologic: Denies: bleeding Musculoskeletal: Reports: pain - less abdominal pain Allergies: Coded Allergies: No Known Allergies (Unverified , 02/05/20) Objective Last 24 Hour Vital Signs Date Time Temp Pulse Resp B/P (MAP) Pulse Ox O2 Delivery O2 Flow Rate FiO2 05/17/20 16:00 97.7 121 18 123/84 (97) 95 05/17/20 16:00 10.0 60 05/17/20 16:00 T-piece 05/17/20 15:14 124 05/17/20 13:30 95 Mechanical Ventilator 60 05/17/20 13:30 125 18 95 Mechanical Ventilator 60 05/17/20 11:46 Mechanical Ventilator 05/17/20 11:45 97.5 113 20 129/71 (90) 96 3/17/21 11:39 113 05/17/20 10:45 109 20 130/74 95 05/17/20 10:15 116 20 135/76 93 05/17/20 08:44 10.0 80 05/17/20 08:15 10.0 60 05/17/20 08:05 96 139/77 05/17/20 08:00 35 05/17/20 07:58 97.7 96 18 139/77 (97) 96 05/17/20 07:41 94 05/17/20 07:28 Mechanical Ventilator 05/17/20 07:05 98 Mechanical Ventilator 60 05/17/20 04:00 90 05/17/20 04:00 97.5 112 18 136/73 (94) 99 05/17/20 04:00 35 05/17/20 04:00 T-piece 05/17/20 03:45 90 22 35 05/17/20 01:00 96 Mechanical Ventilator 35 05/17/20 00:00 101 05/17/20 00:00 35 05/17/20 00:00 T-piece 05/17/20 00:00 98.7 105 18 126/70 (88) 98 05/16/20 22:46 108 21 50 05/16/20 20:00 98.9 109 20 129/75 (93) 98 05/16/20 20:00 T-piece 05/16/20 20:00 106 05/16/20 19:54 40 05/16/20 19:34 95 Mechanical Ventilator 50 05/16/20 19:20 111 23 50 05/16/20 19:05 35 05/16/20 17:48 113 141/83 Height (Feet): 5 Height (Inches): 10.00 Weight (Pounds): 243 General Appearance: no acute distress HEENT: normocephalic, atraumatic, anicteric, EOMI, supple, no JVD Respiratory/Chest: crackles/rales, rhonchi - bilaterally Cardiovascular: normal rate, regular rhythm, no gallop/murmur, no JVD Abdomen: normal bowel sounds, soft, non tender, no organomegaly, non distended, other - less abdominal pain Genitourinary: other Extremities: no cyanosis Skin: no rash Neurologic/Psychiatric: metal drawer II-XII 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 Note nonvisualization of the left hepatic lobe, spleen, pancreas, abdominal aorta Gallbladder sludge. Negative for biliary ductal dilatation Unremarkable kidneys Liver demonstrates diffusely increased echogenicity, consistent with diffuse hepatocellular disease, most likely fatty change. CT chest: IMPRESSION: There are mild subpleural ground-glass and consolidating infiltrates in the dependent portions of both lower lobes and to lesser degree the upper lobes consistent with bilateral pneumonia. The infiltrates are typical for Covid 19. No evidence of pulmonary embolus. CT abdomen and pelvis: IMPRESSION: 1. Scattered hepatic hypodense lesions, too small to characterize on this examination without intravenous contrast. 2. Colonic diverticulosis without evidence of acute diverticulitis. 3. Scattered enlarged mesenteric lymph nodes, presumably reactive. teral pneumonia. The infiltrates are typical for Covid 19. No evidence of pulmonary embolus. Chest x-ray - 12/19/19 - Indication: Shortness of breath Technique: One view of the chest Comparison: 02/17/2020 Findings: Interim worsening of bilateral infiltrates, particularly on the right. The heart is borderline enlarged. The pleural spaces are clear. Left arm PICC is again demonstrated Impression: Worsening bilateral infiltrates over one day, likely pneumonia CT chest - 02/19/20 - IMPRESSION: Increased extensive patchy ground-glass opacities and densities throughout the lungs, suggestive of Covid 19 infection. Chest x-ray 02/23/20 - Procedure: XRAY Chest 1v As Indication: Reason For Exam: INFECT Technique: One view of the chest Comparison: 02/20/2020 Findings: Allowing for differences in exposure technique, bilateral mid and lower lung infiltrates are probably unchanged. The heart size is normal. The pleural spaces are clear. Impression: Unchanged, over 4 days, findings as above. Chest x-ray - 02/25/20 - FINDINGS: Lungs: Interval slightly worsening bilateral airspace disease. Pleural space: Unremarkable. No pneumothorax. Heart: Unremarkable. No cardiomegaly. Mediastinum: Unremarkable. Bones/joints: Unremarkable. IMPRESSION: Interval slightly worsening bilateral airspace disease. Chest x-ray - 03/02/20 - Procedure: XRAY Chest 1v Indication: Shortness of breath Technique: One view of the chest Comparison: 02/25/2020 Findings: Bilateral interstitial and airspace infiltrates are unchanged. The heart size is normal. Left arm PICC is again demonstrated Impression: Unchanged, over one day, findings as above. Chest x-ray - 03/06/20 - Procedure: XRAY Chest 1v Indication: Shortness of breath Technique: One view of the chest Comparison: 03/02/2020 Findings: Bilateral infiltrates are unchanged. Normal heart size. Pleural spaces are clear Chest x-ray - 03/12/10 - Impression: COMPARISON: Chest radiograph March 06, 2020. FINDINGS/IMPRESSION: Improving basilar infiltrates. Follow chest radiograph recommended. The upper lung finley are clear. No pneumothorax. Stable cardiomegaly. Stable left upper extremity PICC line. anged, over 4 days, findings as above. Chest x-ray - 03/17/20 - Procedure: XRAY Chest 1v Indication: Shortness of breath Technique: One view of the chest Comparison: 03/12/2020 Findings: Left arm PICC is again demonstrated. Infiltrates are unchanged. The heart size is upper limits of normal. Impression: Unchanged, over 5 days, findings as above. Abdominal US - IMPRESSION: 1. Gallbladder is normal. 2. Hepatic steatosis. 3. 1.7 cm cyst right kidney. Impression. Chest x-ray - Procedure: XRAY Chest 1v Indication: Shortness of breath Technique: One view of the chest Comparison: 03/17/2020 Findings: Bilateral right greater than left infiltrates again demonstrated. The heart size is normal. There is a left arm PICC in good position. Impression: Unchanged, over 5 days, findings as above. Chest x-ray - 03/29/20 - Procedure: XRAY Chest 1v Indication: Cough Technique: One view of the chest Comparison: 03/28/2020 Findings: Bilateral infiltrates are unchanged or slightly worse, allowing for differences in exposure technique. The pleural spaces are clear. The heart size is normal. Stable satisfactory position of endotracheal tube, left arm PICC. Orogastric tube has retracted somewhat the position remains satisfactory. Impression: Stable to slightly worse bilateral infiltrates. Otherwise little mold insert changer one day Chest x-ray - 03/31/20 - Procedure: XRAY Chest 1v Indication: Post endotracheal tube repositioning Technique: One view of the chest Comparison: 3 hours earlier Findings: Interim advancement of endotracheal tube, tip projecting approximately 5 cm above the sunny. Interim advancement of orogastric tube as well. Bilateral infiltrates are unchanged. Left arm PICC remains Impression: Improved and now satisfactory tube positions as described. ICU nurse Maeve notified at the time of interpretation Chest x-ray - 04/02/20 - COMPARISON: Chest x-rays dated 03/31/20 and 03/12/20. FINDINGS: Lungs: No significant change in bilateral prominent interstitial markings. The lungs are otherwise clear without focal consolidation. Pleural space: Unremarkable. The costophrenic angles are sharp. No visible pneumothorax. Heart: Unremarkable. No cardiomegaly. Mediastinum: Unremarkable. Bones/joints: Unremarkable. Tubes, lines and devices: Endotracheal tube tip 6.5 cm above the sunny. NG tube tip in the distal stomach. Telemetry leads overlie the thorax. IMPRESSION: No significant change in bilateral prominent interstitial markings. Procedure: XRAY Chest 1v Procedure: XRAY Chest 1v Reason for study: Shortness of breath 04/06/20 - Comparison films: 04/02/2020. FINDINGS: Endotracheal tube and NG tube remain in place. There is worsening of right basilar infiltrates. Some haziness in left lung base unchanged. Cardiac and mediastinal silhouette are within normal limits. CP angles are sharp. The bony thorax appear unremarkable. IMPRESSION: Worsening of right basilar infiltrate. Chest x-ray - 04/09/20 - Procedure: XRAY Chest 1v FILM CXR 1 VIEW INDICATION: Infection COMPARISON: April 05, 2020 FINDINGS: Single frontal view demonstrates a normal cardiomediastinal silhouette. Endotracheal tube in place with tip above the sunny. Elevation of the right hemidiaphragm. Interstitial prominence with bilateral lower lobe infiltrates. Lung bases appear worse from the prior exam. Small right effusion. Right-sided PICC line with tip in the superior vena cava. Enteric tube in place. IMPRESSION: Interstitial prominence and bilateral lower lobe pneumonia with worsening appearance from the prior study. Chest x-ray - 04/12/20 - Procedure: XRAY Chest 1v Indication: Shortness of breath Technique: One view of the chest Comparison: 04/09/2020 Findings: Stable satisfactory tube and line positions. Bilateral infiltrates hav e worsened slightly since prior study. The heart size is normal. Impression: Worsening bilateral infiltrates, over 3 days Chest x-ray - 04/15/20 - COMPARISON: 02/11/21. FINDINGS: Lungs: There is been no significant change in mild to moderate patchy diffuse bilateral alveolar infiltrates which are most prominent in the lung bases. Pleural space: Unremarkable. No pneumothorax. Heart: Unremarkable. No cardiomegaly. Mediastinum: Unremarkable. Bones/joints: Unremarkable. Tubes, lines and devices: There is an endotracheal tube, right-sided PICC line and NG tube in good position. IMPRESSION: There is been no significant change in mild to moderate patchy diffuse bilateral alveolar infiltrates which are most prominent in the lung bases. Chest x-ray - 04/18/20 - Procedure: XRAY Chest 1v Indication: Cough Technique: One view of the chest Comparison: 04/15/2020 Findings: Less optimal inspiration currently than previously. Stable satisfactory positions of endotracheal and orogastric tubes and right arm PICC. Bilateral infiltrates are again demonstrated, unchanged. Impression: Unchanged, over 3 days, findings as above. Chest x-ray - 04/21/20 - Procedure: XRAY Chest 1v Indication: Dyspnea Technique: One view of the chest Comparison: 04/18/2020 Findings: Stable tube and line positions. Bilateral infiltrates are unchanged Impression: Unchanged, over one day, findings as above. Procedure: XRAY Chest 1v Procedure: XRAY Chest 1v Reason for study: Reason For Exam: SOB Chest x-ray - 04/25/20 - Comparison films: 04/21/2020. FINDINGS: Endotracheal tube, NG tube and right PICC line remain in place. Vascularity is normal. Bilateral infiltrates are unchanged. Cardiac and mediastinal silhouette are within normal limits. CP angles are sharp. The bony thorax appear unremarkable. IMPRESSION: NO SIGNIFICANT CHANGE COMPARED TO PREVIOUS EXAM. Chest x-rasy - 04/30/20 - FINDINGS: Lungs: Bilateral patchy pulmonary opacities concerning for pneumonia, not significantly changed compared to the prior chest x-ray. Pleural space: Unremarkable. The costophrenic angles are sharp. No visible pneumothorax. Heart: Unremarkable. No cardiomegaly. Mediastinum: Unremarkable. Bones/joints: Unremarkable. Tubes, lines and devices: Tracheostomy tube in place, with expected positioning. Telemetry leads overlie the thorax. Right arm PICC with catheter tip in the SVC region. IMPRESSION: Bilateral patchy pulmonary opacities concerning for pneumonia, not significantly changed compared to the prior chest x-ray. Chest x-ray - 05/12/20 - Procedure: XRAY Chest 1v Procedure: XRAY Chest 1v Reason for study: Shortness of breath. Comparison films: 04/30/2020. FINDINGS: Tracheostomy and right PICC line remain in place. There is new pneumomediastinum as well as subcutaneous cutaneous emphysema noted in the right supraclavicular region. Slight increase in diffuse bilateral alveolar densities likely worsening infiltrates and/or edema. Cardiac and mediastinal silhouette are within normal limits. CP angles are sharp. The bony thorax appear unremarkable. IMPRESSION: Slight worsening of bilateral basilar densities, infiltrates and/or edema. New pneumomediastinum and subcutaneous cutaneous air in the right supraclavicular region. Chest x-rasy - 05/14/20 - Procedure: XRAY Chest 1v EXAM: XR Chest, 1 View CLINICAL HISTORY: INFECT TECHNIQUE: Frontal view of the chest. COMPARISON: 05/12/20 FINDINGS: Since the prior examination, there is marked increase in pneumomediastinum as well as soft tissue gas to the chest wall and supraclavicular regions, right greater than left. Redemonstrated appropriately positioned tracheostomy. Tip of right arm PICC is in the SVC. No clear pneumothorax given limitations due to overlying chest wall gas. Extensive bilateral interstitial and airspace infiltrates appear similar to the prior examination, but suspect slight progression in the left upper lobe. IMPRESSION: Increasing pneumomediastinum and chest wall gas. Extensive bilateral pulmonary infiltrates, progressed in the left upper lobe. CT abdomen an pelvis: Impression: Distended gallbladder. Somewhat dense material within the bladder lumen probably represents sludge. However, the possibility that this represents blood should also be considered given the relatively high attenuation. There is also biliary ductal dilatation, without definite downstream obstructive lesion. MRCP may be useful for better characterization Right renal lesion, demonstrating soft tissue attenuation. Possibly a hemorrhagic cyst given cystic appearance on prior study. However, the possibly of solid neoplasm should also be considered. Extensive bilateral basilar pulmonary parenchymal opacification likely related to ongoing pneumonia Small amount of free intraperitoneal fluid Subcutaneous emphysema and pneumomediastinum, also reported on prior chest radiograph Clinical history diverticulosis Gastrostomy Hepatic and left renal cysts Joseph catheter Findings discussed by phone with Dr. Rausch at the time of interpretation Abdominal US: Impression: Very limited exam as described. Note nonvisualization of the left hepatic lobe, spleen, pancreas, abdominal aorta Gallbladder sludge. Negative for biliary ductal dilatation Unremarkable kidneys Liver demonstrates diffusely increased echogenicity, consistent with diffuse hepatocellular disease, most likely fatty change. Microbiology Date/Time Source Procedure Growth Status 05/14/20 07:00 Urine,Clean Catch Urine Culture - Final Escherichia Coli Kat Parapsilosis Complete 05/13/20 17:12 Blood Blood Culture - Preliminary NO GROWTH AFTER 72 HOURS Resulted 04/14/20 16:35 Stool Clostridium difficile Toxin Assay - Final Complete 04/12/20 08:40 Sputum Gram Stain - Final Complete 04/12/20 08:40 Sputum Sputum Culture - Final NORMAL UPPER RESPIRATORY WILIAM AT 48 ... Complete Laboratory Tests Test 05/16/20 20:00 05/17/20 05:00 Vancomycin Level Trough 8.1 ug/mL (5.0-12.0) White Blood Count 9.4 K/UL (4.8-10.8) Red Blood Count 3.33 M/UL (4.70-6.10) L Hemoglobin 9.5 G/DL (14.2-18.0) L Hematocrit 30.4 % (42.0-52.0) L Mean Corpuscular Volume 91 FL (80-99) Mean Corpuscular Hemoglobin 28.5 PG (27.0-31.0) Mean Corpuscular Hemoglobin Concent 31.2 G/DL (32.0-36.0) L Red Cell Distribution Width 15.4 % (11.6-14.8) H Platelet Count 327 K/UL (150-450) Mean Platelet Volume 6.3 FL (6.5-10.1) L Neutrophils (%) (Auto) 79.7 % (45.0-75.0) H Lymphocytes (%) (Auto) 10.0 % (20.0-45.0) L Monocytes (%) (Auto) 7.7 % (1.0-10.0) Eosinophils (%) (Auto) 1.4 % (0.0-3.0) Basophils (%) (Auto) 1.2 % (0.0-2.0) Sodium Level 134 MMOL/L (136-145) L Potassium Level 3.9 MMOL/L (3.5-5.1) Chloride Level 99 MMOL/L (98-107) Carbon Dioxide Level 29 MMOL/L (21-32) Anion Gap 6 mmol/L (5-15) Blood Urea Nitrogen 18 mg/dL (7-18) Creatinine 0.3 MG/DL (0.55-1.30) L Estimat Glomerular Filtration Rate > 60 mL/min (>60) Glucose Level 92 MG/DL (74-106) Calcium Level 8.8 MG/DL (8.5-10.1) Phosphorus Level 2.6 MG/DL (2.5-4.9) Magnesium Level 2.0 MG/DL (1.8-2.4) Total Bilirubin 1.7 MG/DL (0.2-1.0) H Direct Bilirubin 1.4 MG/DL (0.0-0.3) H Gamma Glutamyl Transpeptidase 969 U/L (5-85) H Aspartate Amino Transf (AST/SGOT) 188 U/L (15-37) H Alanine Aminotransferase (ALT/SGPT) 357 U/L (12-78) H Alkaline Phosphatase 582 U/L (46-116) H C-Reactive Protein, Quantitative 14.0 mg/dL (0.00-0.90) H Pro-B-Type Natriuretic Peptide 384 pg/mL (0-125) H Total Protein 5.9 G/DL (6.4-8.2) L Albumin 2.4 G/DL (3.4-5.0) L Globulin 3.5 g/dL Albumin/Globulin Ratio 0.7 (1.0-2.7) L Amylase Level 42 U/L (25-115) Lipase 123 U/L (73-393) Current Medications Medications (Trade) Dose Ordered Sig/Dennis Route PRN Reason Start Time Stop Time Status Last Admin Dose Admin Acetaminophen (Tylenol) 650 mg Q4H PRN GT Mild Pain (Pain Scale 1-3) 05/02/20 08:45 06/01/20 08:44 05/08/20 20:28 Acetaminophen/ Hydrocodone Bitart ([place] 10/325) 1 tab Q4H PRN ORAL For Pain 05/16/20 09:45 05/23/20 09:44 05/17/20 08:32 Amlodipine Besylate (Norvasc) 2.5 mg BID GT 05/02/20 18:00 06/02/20 08:59 05/17/20 08:05 Barium Sulfate (Readi-Cat 2) 450 ml NOW PRN ORAL Radiology Procedure 05/16/20 11:30 05/18/20 11:29 Barium Sulfate (Varibar Honey) 250 ml NOW PRN MC RAD 05/17/20 10:15 05/20/20 10:13 Barium Sulfate (Varibar [place]) 240 ml NOW PRN MC RAD 05/17/20 10:15 05/20/20 10:13 Barium Sulfate (Varibar Pudding) 230 ml NOW PRN MC RAD 05/17/20 10:15 05/20/20 10:13 Barium Sulfate (Varibar Thin Liquid powder) 148 gm NOW PRN MC RAD 05/17/20 10:15 05/20/20 10:13 Cefepime HCl 2 gm/ Dextrose 100 ml @ 200 mls/hr EVERY 8 HOURS IVPB 05/15/20 22:00 05/22/20 21:59 05/17/20 13:03 Chlorhexidine Gluconate (Marlen-Hex 2%) 1 applic DAILY@2000 TOPIC 03/30/20 20:00 06/28/20 19:59 05/16/20 21:26 Famotidine (Pepcid) 20 mg Q12HR PRN GT HEARTBURN 05/08/20 13:15 06/01/20 15:14 05/13/20 08:52 Hydralazine HCl (Apresoline) 10 mg Q4H PRN IV For High Blood Pressure 03/30/20 12:15 06/28/20 12:14 05/11/20 14:37 Ipratropium [place] (Atrovent) 500 mcg Q6H PRN HHN Shortness of Breath 05/17/20 09:00 05/22/20 08:59 Lansoprazole (Prevacid) 30 mg DAILY GT 05/02/20 09:00 06/01/20 08:59 05/17/20 08:05 Lorazepam (Ativan) 1 mg Q6H PRN GT For Anxiety 05/17/20 08:59 05/24/20 08:58 05/17/20 10:15 Metronidazole 100 ml @ 100 mls/hr Q8HR IVPB 05/16/20 14:00 05/23/20 13:59 05/17/20 13:34 Ondansetron HCl (Zofran) 4 mg Q6H PRN IVP Nausea & Vomiting 05/16/20 09:45 06/15/20 09:44 05/16/20 10:02 Prednisone (predniSONE) 5 mg DAILY GT 05/13/20 09:00 06/05/20 08:59 05/17/20 08:05 Quetiapine Fumarate (SEROqueL) 50 mg EVERY 8 HOURS GT 05/13/20 14:00 06/11/20 11:59 05/17/20 13:08 Vancomycin HCl 300 ml @ 150 mls/hr Q8H IVPB 05/16/20 22:00 05/21/20 21:59 05/17/20 14:44 Vancomycin HCl (Vanco pharmacy to dose) 1 ea DAILY PRN MISC Per rx protocol 05/15/20 18:45 06/14/20 18:44 Vitamin D (Vitamin D) 3,000 unit DAILY GT 05/18/20 09:00 06/17/20 08:59 Kisha Salazar MD May 17, 2020 17:16
--- NOTE | 2020-05-17 19:36 | NUR ---
NURSE HAND-OFF REPORT: Important Events on Shift: Patient Status: Diet: Pending Orders: Pending Results/Labs: Pending MD notification: Latest Vital Signs: Temperature 97.7 , Pulse 108 , B/P 125 /82 , Respiratory Rate 20 , O2 SAT 95 , Mechanical Ventilator, O2 Flow Rate 10.0 . Vital Sign Comment: EKG Rhythm: Sinus Tachycardia Rhythm change?: N MD Notified?: Courtney Marinelli MD Response: No New Orders Received Latest Hassan Fall Score: 35 Fall Risk: Medium Risk Safety Measures: Call light Within Reach, Bed Alarm Zone 2, Side Rails Side Rails x3, Bed position Low and Locked. Fall Precautions: Yellow Socks Yellow Gown Door Sign Patient Fall Education Report given to . Pt is sleeping and stable SPO2 97% HR 90 with T-PIECE, no stress noted. endorsed plan of care, endorsed to increase feeding to 50CC/HR if pt tolerate. Addendum: 05/17/20 at 1942 by Zenaida Murillo RN Endorsed to RN Kwame to F/U with MD if we can restart Lovenox again.
--- NOTE | 2020-05-17 19:40 | NUR ---
NURSE NOTES: Received pt from [facility] pt resting in bed comfortably. No s/s of distress or discomoft. Pt has T-piece 10L O2 FIO2 60% sating 97%. Pt has g tube running Glucerna 1.5@50 patent intact. Pt has Bronwlee cath in place patent intact draining to gravity. Pt has PICC ALBERT ABX is running patent and intact. Skin issues noted. Denies pain/discomfort at this time. All needs attended, bed is locked and is in the lowest position, call light within easy reach. Continue to monitor. 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
[2020-05-17 20:00] VITALS: BP 129/75
[2020-05-17] MEDS: Dyna-Hex 2% Top Sol 2oz TOPIC SCH (20:00)
--- NOTE | 2020-05-17 20:12 | Cardiology Progress Note ---
Assessment/Plan Assessment/Plan Acute covid 19 pneumonia hypoxemia infiltrate bilat bacteremia hypernatremia / hyponatremia mild abn lfts tachy post intubation fever fungemia dvt upper ext right sided abd pain now off the vent abd pain ? cholecystitis ? improved sx s/p trach / peg now afebrile now hypoxemia unlikely cardiac related offf full dose anticoag due to dvt ue pwending need for surgey cr is stable d/w rn imani for bp fuly awake now able to talkd off fox vent weaning bp better on norvasc to be transferred to group home care faciliity surgery evaluating ct noted appendix normal sx of chle improved d/w dr serrano will hold anticoagualtion until sure nto need surgeyr Subjective Cardiovascular: Denies: chest pain, irregular heart rate, lightheadedness Respiratory: Denies: shortness of breath Gastrointestinal/Abdominal: Reports: abdominal pain - better Genitourinary: Denies: burning Objective Last 24 Hour Vital Signs Date Time Temp Pulse Resp B/P (MAP) Pulse Ox O2 Delivery O2 Flow Rate FiO2 05/17/20 19:38 97 Cool Aerosol 10.0 60 05/17/20 18:10 108 20 125/82 95 05/17/20 17:40 106 22 123/84 96 05/17/20 17:39 106 123/84 05/17/20 16:00 97.7 121 18 123/84 (97) 95 05/17/20 16:00 10.0 60 05/17/20 16:00 T-piece 05/17/20 15:14 124 05/17/20 13:30 95 Mechanical Ventilator 60 05/17/20 13:30 125 18 95 Mechanical Ventilator 60 05/17/20 11:46 Mechanical Ventilator 05/17/20 11:45 97.5 113 20 129/71 (90) 96 05/17/20 11:39 113 05/17/20 10:45 109 20 130/74 95 05/17/20 10:15 116 20 135/76 93 05/17/20 08:44 10.0 80 05/17/20 08:15 10.0 60 05/17/20 08:05 96 139/77 05/17/20 08:00 35 05/17/20 07:58 97.7 96 18 139/77 (97) 96 05/17/20 07:41 94 05/17/20 07:28 Mechanical Ventilator 05/17/20 07:05 98 Mechanical Ventilator 60 05/17/20 04:00 90 05/17/20 04:00 97.5 112 18 136/73 (94) 99 05/17/20 04:00 35 05/17/20 04:00 T-piece 05/17/20 03:45 90 22 35 05/17/20 01:00 96 Mechanical Ventilator 35 05/17/20 00:00 101 05/17/20 00:00 35 05/17/20 00:00 T-piece 05/17/20 00:00 98.7 105 18 126/70 (88) 98 05/16/20 22:46 108 21 50 General Appearance: no apparent distress, alert Neck: supple Cardiovascular: normal rate Respiratory/Chest: rhonchi - bilaterally Abdomen: normal bowel sounds, soft, tender Extremities: no swelling Intake and Output 05/16/20 05/17/20 19:00 07:00 Intake Total 475.000 ml 170 ml Output Total 600 ml 1050 ml Balance -125.000 ml -880 ml Free Water 150 ml IV Total 475.000 ml Tube Feeding 20 ml Output Urine Total 600 ml 1050 ml # Voids 1 # Bowel Movements 1 Laboratory Tests Test 05/17/20 05:00 White Blood Count 9.4 K/UL (4.8-10.8) Red Blood Count 3.33 M/UL (4.70-6.10) L Hemoglobin 9.5 G/DL (14.2-18.0) L Hematocrit 30.4 % (42.0-52.0) L Mean Corpuscular Volume 91 FL (80-99) Mean Corpuscular Hemoglobin 28.5 PG (27.0-31.0) Mean Corpuscular Hemoglobin Concent 31.2 G/DL (32.0-36.0) L Red Cell Distribution Width 15.4 % (11.6-14.8) H Platelet Count 327 K/UL (150-450) Mean Platelet Volume 6.3 FL (6.5-10.1) L Neutrophils (%) (Auto) 79.7 % (45.0-75.0) H Lymphocytes (%) (Auto) 10.0 % (20.0-45.0) L Monocytes (%) (Auto) 7.7 % (1.0-10.0) Eosinophils (%) (Auto) 1.4 % (0.0-3.0) Basophils (%) (Auto) 1.2 % (0.0-2.0) Sodium Level 134 MMOL/L (136-145) L Potassium Level 3.9 MMOL/L (3.5-5.1) Chloride Level 99 MMOL/L (98-107) Carbon Dioxide Level 29 MMOL/L (21-32) Anion Gap 6 mmol/L (5-15) Blood Urea Nitrogen 18 mg/dL (7-18) Creatinine 0.3 MG/DL (0.55-1.30) L Estimat Glomerular Filtration Rate > 60 mL/min (>60) Glucose Level 92 MG/DL (74-106) Calcium Level 8.8 MG/DL (8.5-10.1) Phosphorus Level 2.6 MG/DL (2.5-4.9) Magnesium Level 2.0 MG/DL (1.8-2.4) Total Bilirubin 1.7 MG/DL (0.2-1.0) H Direct Bilirubin 1.4 MG/DL (0.0-0.3) H Gamma Glutamyl Transpeptidase 969 U/L (5-85) H Aspartate Amino Transf (AST/SGOT) 188 U/L (15-37) H Alanine Aminotransferase (ALT/SGPT) 357 U/L (12-78) H Alkaline Phosphatase 582 U/L (46-116) H C-Reactive Protein, Quantitative 14.0 mg/dL (0.00-0.90) H Pro-B-Type Natriuretic Peptide 384 pg/mL (0-125) H Total Protein 5.9 G/DL (6.4-8.2) L Albumin 2.4 G/DL (3.4-5.0) L Globulin 3.5 g/dL Albumin/Globulin Ratio 0.7 (1.0-2.7) L Amylase Level 42 U/L (25-115) Lipase 123 U/L (73-393) Objective pt seen persoanlly Manan Awan MD May 17, 2020 20:12
--- NOTE | 2020-05-17 22:02 | Surgery Progress Note ---
Surgery Progress Note Subjective Procedure Performed tracheostomy Symptoms: improved, pain decreased Additional Comments pain improved labs improved will monitor clinically resume tf Objective Last 24 Hour Vital Signs Date Time Temp Pulse Resp B/P (MAP) Pulse Ox O2 Delivery O2 Flow Rate FiO2 05/17/20 21:30 100 129/75 05/17/20 19:38 97 Cool Aerosol 10.0 60 05/17/20 18:10 108 20 125/82 95 05/17/20 17:40 106 22 123/84 96 05/17/20 17:39 106 123/84 05/17/20 16:00 97.7 121 18 123/84 (97) 95 05/17/20 16:00 10.0 60 05/17/20 16:00 T-piece 05/17/20 15:14 124 05/17/20 13:30 95 Mechanical Ventilator 60 05/17/20 13:30 125 18 95 Mechanical Ventilator 60 05/17/20 11:46 Mechanical Ventilator 05/17/20 11:45 97.5 113 20 129/71 (90) 96 05/17/20 11:39 113 05/17/20 10:45 109 20 130/74 95 05/17/20 10:15 116 20 135/76 93 05/17/20 08:44 10.0 80 05/17/20 08:15 10.0 60 05/17/20 08:05 96 139/77 05/17/20 08:00 35 05/17/20 07:58 97.7 96 18 139/77 (97) 96 05/17/20 07:41 94 05/17/20 07:28 Mechanical Ventilator 05/17/20 07:05 98 Mechanical Ventilator 60 05/17/20 04:00 90 05/17/20 04:00 97.5 112 18 136/73 (94) 99 05/17/20 04:00 35 05/17/20 04:00 T-piece 05/17/20 03:45 90 22 35 05/17/20 01:00 96 Mechanical Ventilator 35 05/17/20 00:00 101 05/17/20 00:00 35 05/17/20 00:00 T-piece 05/17/20 00:00 98.7 105 18 126/70 (88) 98 05/16/20 22:46 108 21 50 I&O Intake and Output 05/16/20 05/17/20 19:00 07:00 Intake Total 475.000 ml 170 ml Output Total 600 ml 1050 ml Balance -125.000 ml -880 ml Free Water 150 ml IV Total 475.000 ml Tube Feeding 20 ml Output Urine Total 600 ml 1050 ml # Voids 1 # Bowel Movements 1 Dressing: other Wound: other Cardiovascular: RSR Respiratory: decreased breath sounds Abdomen: soft, flat, non-tender, present bowel sounds, non-distended Extremities: no tenderness, no cyanosis Laboratory Tests Test 05/17/20 05:00 White Blood Count 9.4 K/UL (4.8-10.8) Red Blood Count 3.33 M/UL (4.70-6.10) L Hemoglobin 9.5 G/DL (14.2-18.0) L Hematocrit 30.4 % (42.0-52.0) L Mean Corpuscular Volume 91 FL (80-99) Mean Corpuscular Hemoglobin 28.5 PG (27.0-31.0) Mean Corpuscular Hemoglobin Concent 31.2 G/DL (32.0-36.0) L Red Cell Distribution Width 15.4 % (11.6-14.8) H Platelet Count 327 K/UL (150-450) Mean Platelet Volume 6.3 FL (6.5-10.1) L Neutrophils (%) (Auto) 79.7 % (45.0-75.0) H Lymphocytes (%) (Auto) 10.0 % (20.0-45.0) L Monocytes (%) (Auto) 7.7 % (1.0-10.0) Eosinophils (%) (Auto) 1.4 % (0.0-3.0) Basophils (%) (Auto) 1.2 % (0.0-2.0) Sodium Level 134 MMOL/L (136-145) L Potassium Level 3.9 MMOL/L (3.5-5.1) Chloride Level 99 MMOL/L (98-107) Carbon Dioxide Level 29 MMOL/L (21-32) Anion Gap 6 mmol/L (5-15) Blood Urea Nitrogen 18 mg/dL (7-18) Creatinine 0.3 MG/DL (0.55-1.30) L Estimat Glomerular Filtration Rate > 60 mL/min (>60) Glucose Level 92 MG/DL (74-106) Calcium Level 8.8 MG/DL (8.5-10.1) Phosphorus Level 2.6 MG/DL (2.5-4.9) Magnesium Level 2.0 MG/DL (1.8-2.4) Total Bilirubin 1.7 MG/DL (0.2-1.0) H Direct Bilirubin 1.4 MG/DL (0.0-0.3) H Gamma Glutamyl Transpeptidase 969 U/L (5-85) H Aspartate Amino Transf (AST/SGOT) 188 U/L (15-37) H Alanine Aminotransferase (ALT/SGPT) 357 U/L (12-78) H Alkaline Phosphatase 582 U/L (46-116) H C-Reactive Protein, Quantitative 14.0 mg/dL (0.00-0.90) H Pro-B-Type Natriuretic Peptide 384 pg/mL (0-125) H Total Protein 5.9 G/DL (6.4-8.2) L Albumin 2.4 G/DL (3.4-5.0) L Globulin 3.5 g/dL Albumin/Globulin Ratio 0.7 (1.0-2.7) L Amylase Level 42 U/L (25-115) Lipase 123 U/L (73-393) Plan Problems: (1) Pneumonia (2) Staphylococcus aureus bacteremia (3) COVID-19 virus infection Assessment & Plan: prior now neg improving (4) Chest pain (5) Hypertension (6) Dehydration (7) Electrolyte imbalance (8) DMII (diabetes mellitus, type 2) (9) Protein malnutrition Assessment & Plan: DAILY ESTIMATED NEEDS: Needs based on Critical care, wound 81kg abw 22-28 kcals/kg 7230-3948 total kcals 1.25-2 g protein/kg 101-162 g total protein 25-30 mL/kg 0042-8324 total fluid mLs NUTRITION DIAGNOSIS: * Increased kcal/prot/micronutrients needs R/T wound healing as evidenced by pt w/ new multiple pressure injuries, 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 * Inadequate oral intake R/T clinical and respiratory status as evidenced by COVID-19 ++, on continuous BIPAP, prolonged meal refusals, pt is now on TPN, pt orally intubated (03/28), s/p trach placement (04/26), and s/p PEG placement (04/27), now on GT feeds. * Decreased sodium and fat needs r/t HTN and obesity as evidenced by pt w/ cardiac history, elev BP (159/98-> now improved, on BP meds and diuretics), BMI >30, obese per guidelines. (INACTIVE) CURRENT TF:Glucerna 1.5 goal of 50 + Prosource BID ENTERAL NUTRITION RECOMMENDATIONS: Glucerna 1.5 @ 50ml/hr x 24 hrs + Prosource 1pkt BID to provide 1200ml, 1800kcal, 99g +22g prot (121g total prot), 926ml free water * Maintain current TF order * Con't Prosource 1pkt BID (additional 22g prot) to better meet est prot needs. ADDITIONAL RECOMMENDATIONS: 1) Maintain calibrated bedscale wts 2) Monitor BGs closely w/ Solumedrol (POC glu wnl at this time) 3) Monitor lytes, replete as needed 4) Monitor TF tolerance: PEG placed 04/28, cont to increase TF to goal as tolerated 5) Wound healing: Add Michael BID (mix w/ 2-4oz of water) TF @ goal provides 100% RDI, add Vit C 500mg QD, ZnSO4 220mg [id number] (10) Respiratory insufficiency Assessment & Plan: 64-year-old male with respiratory insufficiency intubated in an intensive care unit. Patient has been unable to safely wean off ventilatory support. Surgery called to evaluate for tracheostomy. After careful evaluation patient is a candidate for tracheostomy. In the meantime will obtain consent. If consent obtained will proceed with scheduling. Thank you for your participation's care will follow recommendations improving trach okay agitated weaning sedation no n/v cont weaning transition to oral meds via g tube get off drips improving downgraded weaning well more alert and awake responsive will need placement trach collar consideration pending sub acute placement okay for placement cont trach care leave sutures in place as dissolvable recovering well fully awake now tolerating diet d/c planning awaiting placement (11) LFT elevation Assessment & Plan: leukocytosis lfts elevated no n/v US ordered trend labs abx US noted labs improved hold anticoag cont tf trend labs Booker Rausch May 17, 2020 22:02
[2020-05-18] VITALS: BP 107/64
[2020-05-18 04:00] VITALS: BP 137/74
[2020-05-18] MEDS: HYDROcodone/Acetamin 10/325 tab ORAL PRN ×3 (05:42→22:27)
[2020-05-18] MEDS: Vancomycin 1.5gm/300ml Premix IVPB SCH (06:10)
[2020-05-18 06:11] LABS: BASOPHILS % (AUTO) 0.8 % (0.0-2.0); EOSINOPHILS % (AUTO) 1.8 % (0.0-3.0); HEMATOCRIT 31.1 % (42.0-52.0); HEMOGLOBIN 9.6 G/DL (14.2-18.0); LYMPHOCYTES % (AUTO) 9.6 % (20.0-45.0); MEAN CORPUSCULAR VOLUME 91 FL (80-99); MONOCYTES % (AUTO) 5.7 % (1.0-10.0); NEUTROPHILS % (AUTO) 82.1 % (45.0-75.0); PLATELET COUNT 344 K/UL (150-450); RED BLOOD COUNT 3.42 M/UL (4.70-6.10); RED CELL DISTRIBUTION WIDTH 15.3 % (11.6-14.8); WHITE BLOOD COUNT 9.5 K/UL (4.8-10.8)
[2020-05-18 06:24] LABS: AMYLASE 48 U/L (25-115)
[2020-05-18 06:29] LABS: ALANINE AMINOTRANSFERASE 214 U/L (12-78); ALBUMIN 2.5 G/DL (3.4-5.0); ALBUMIN/GLOBULIN RATIO 0.7 (1.0-2.7); ALKALINE PHOSPHATASE 437 U/L (46-116); ANION GAP 6 mmol/L (5-15); ASPARTATE AMINO TRANSFERASE 42 U/L (15-37); BILIRUBIN,TOTAL 0.6 MG/DL (0.2-1.0); BLOOD UREA NITROGEN 16 mg/dL (7-18); CARBON DIOXIDE 30 MMOL/L (21-32); CHLORIDE 101 MMOL/L (98-107); CREATININE 0.3 MG/DL (0.55-1.30); POTASSIUM 3.3 MMOL/L (3.5-5.1); SODIUM 137 MMOL/L (136-145)
[2020-05-18 06:38] LABS: PHOSPHORUS 3.7 MG/DL (2.5-4.9)
--- NOTE | 2020-05-18 07:15 | NUR ---
NURSE HAND-OFF REPORT: Important Events on Shift:[] Patient Status: [stable] Diet: [glucerna 1.5@50] Pending Orders: [] Pending Results/Labs:[] Pending MD notification:[] Latest Vital Signs: Temperature 97.0 , Pulse 98 , B/P 137 /74 , Respiratory Rate 20 , O2 SAT 96 , Mechanical Ventilator, O2 Flow Rate 10.0 . Vital Sign Comment: [] EKG Rhythm: Sinus Rhythm Rhythm change?: N MD Notified?: Courtney Marinelli MD Response: No New Orders Received Latest Hassan Fall Score: 35 Fall Risk: Medium Risk Safety Measures: Call light Within Reach, Bed Alarm Zone 2, Side Rails Side Rails x3, Bed position Low and Locked. Fall Precautions: Yellow Socks Yellow Gown Door Sign Patient Fall Education Report given to [Desi RN].
[2020-05-18 08:00] VITALS: BP 148/73
--- NOTE | 2020-05-18 08:21 | NUR ---
RADIOLOGY DEPT., CHEST X-RAY DONE.-P.DYE
--- NOTE | 2020-05-18 09:20 | Pulmonology Progress Note ---
Subjective ROS Limited/Unobtainable: Yes Interval Events: S/p tracheostomy 04/25/20; now on T-piece Constitutional: Reports: fatigue; Denies: fever HEENT: Repors: no symptoms Respiratory: Reports: dry cough - improved, shortness of breath Cardiovascular: Reports: no symptoms Gastrointestinal/Abdominal: Reports: other - less abdominal pain today ; Denies: nausea, vomiting, diarrhea Psychiatric: Denies: depression Skin: Denies: rash Musculoskeletal: Reports: pain - less abdominal pain Allergies: Coded Allergies: No Known Allergies (Unverified , 02/05/20) Objective Last 24 Hour Vital Signs Date Time Temp Pulse Resp B/P (MAP) Pulse Ox O2 Delivery O2 Flow Rate FiO2 05/18/20 06:13 97.0 05/18/20 04:00 95 05/18/20 04:00 97.0 98 20 137/74 (95) 96 05/18/20 04:00 10.0 60 05/18/20 04:00 T-piece 05/18/20 00:58 96 Cool Aerosol 10.0 60 05/18/20 00:00 97.0 88 18 107/64 (78) 97 05/17/20 23:56 10.0 60 05/17/20 23:55 86 05/17/20 23:55 T-piece 05/17/20 21:30 100 129/75 05/17/20 20:00 97.7 100 20 129/75 (93) 97 05/17/20 20:00 T-piece 05/17/20 20:00 100 05/17/20 20:00 10.0 60 05/17/20 19:38 97 Cool Aerosol 10.0 60 05/17/20 18:10 108 20 125/82 95 05/17/20 17:40 106 22 123/84 96 05/17/20 17:39 106 123/84 05/17/20 16:00 97.7 121 18 123/84 (97) 95 05/17/20 16:00 10.0 60 05/17/20 16:00 T-piece 05/17/20 15:14 124 05/17/20 13:30 95 Mechanical Ventilator 60 05/17/20 13:30 125 18 95 Mechanical Ventilator 60 05/17/20 11:46 Mechanical Ventilator 05/17/20 11:45 97.5 113 20 129/71 (90) 96 05/17/20 11:39 113 05/17/20 10:45 109 20 130/74 95 05/17/20 10:15 116 20 135/76 93 Intake and Output 05/17/20 05/18/20 19:00 07:00 Intake Total 830 ml 30 ml Output Total 1100 ml 1000 ml Balance -270 ml -970 ml Free Water 150 ml IV Total 500 ml Tube Feeding 180 ml 30 ml Output Urine Total 1100 ml 1000 ml # Bowel Movements 2 General Appearance: WD/WN, no acute distress HEENT: normocephalic, atraumatic, status post trach Respiratory: chest wall non-tender Cardiovascular: normal rate, regular rhythm Abdomen: normal bowel sounds, soft, non tender, other - obese Extremities: other - L arm weakness and swelling without redness Microbiology Date/Time Source Procedure Growth Status 05/16/20 20:00 Blood Blood Culture - Preliminary NO GROWTH AFTER 24 HOURS Resulted 05/16/20 19:45 Blood Blood Culture - Preliminary NO GROWTH AFTER 24 HOURS Resulted 05/16/20 10:40 Sputum Gram Stain - Final Resulted 05/16/20 10:40 Sputum Culture - Preliminary YEAST Usual Respiratory Hillary Resulted Laboratory Tests 05/18/20 06:00: White Blood Count 9.5, Red Blood Count 3.42L, Hemoglobin 9.6L, Hematocrit 31.1L, Mean Corpuscular Volume 91, Mean Corpuscular Hemoglobin 28.2, Mean Corpuscular Hemoglobin Concent 31.0L, Red Cell Distribution Width 15.3H, Platelet Count 344, Mean Platelet Volume 6.1L, Neutrophils (%) (Auto) 82.1H, Lymphocytes (%) (Auto) 9.6L, Monocytes (%) (Auto) 5.7, Eosinophils (%) (Auto) 1.8, Basophils (%) (Auto) 0.8, Sodium Level 137, Potassium Level 3.3L, Chloride Level 101, Carbon Dioxide Level 30, Anion Gap 6, Blood Urea Nitrogen 16, Creatinine 0.3L, Estimat Glom erular Filtration Rate > 60, Glucose Level 93, Calcium Level 9.0, Phosphorus Level 3.7, Magnesium Level 2.1, Total Bilirubin 0.6, Aspartate Amino Transf (AST/SGOT) 42H, Alanine Aminotransferase (ALT/SGPT) 214H, Alkaline Phosphatase 437H, C-Reactive Protein, Quantitative 10.5H, Pro-B-Type Natriuretic Peptide 347H, Total Protein 6.3L, Albumin 2.5L, Globulin 3.8, Albumin/Globulin Ratio 0.7L, Amylase Level 48, Lipase 152, Vancomycin Level Trough 23.5H Current Medications Medications (Trade) Dose Ordered Sig/Dennis Route PRN Reason Start Time Stop Time Status Last Admin Dose Admin Acetaminophen (Tylenol) 650 mg Q4H PRN GT Mild Pain (Pain Scale 1-3) 05/02/20 08:45 06/01/20 08:44 05/08/20 20:28 Acetaminophen/ Hydrocodone Bitart (Hankinson 10325) 1 tab Q4H PRN ORAL For Pain 05/16/20 09:45 05/23/20 09:44 05/18/20 05:42 Amlodipine Besylate (Norvasc) 2.5 mg BID GT 05/02/20 18:00 06/02/20 08:59 05/17/20 17:39 Barium Sulfate (Readi-Cat 2) 450 ml NOW PRN ORAL Radiology Procedure 05/16/20 11:30 05/18/20 11:29 Barium Sulfate (Varibar Honey) 250 ml NOW PRN MC RAD 05/17/20 10:15 05/20/20 10:13 Barium Sulfate (Varibar [place]) 240 ml NOW PRN MC RAD 05/17/20 10:15 05/20/20 10:13 Barium Sulfate (Varibar Pudding) 230 ml NOW PRN MC RAD 05/17/20 10:15 05/20/20 10:13 Barium Sulfate (Varibar Thin Liquid powder) 148 gm NOW PRN MC RAD 05/17/20 10:15 05/20/20 10:13 Cefepime HCl 2 gm/ Dextrose 100 ml @ 200 mls/hr EVERY 8 HOURS IVPB 05/15/20 22:00 05/22/20 21:59 05/18/20 05:43 Chlorhexidine Gluconate (Marlen-Hex 2%) 1 applic DAILY@2000 TOPIC 03/30/20 20:00 06/28/20 19:59 05/17/20 20:00 Famotidine (Pepcid) 20 mg Q12HR PRN GT HEARTBURN 05/08/20 13:15 06/01/20 15:14 05/13/20 08:52 Hydralazine HCl (Apresoline) 10 mg Q4H PRN IV For High Blood Pressure 03/30/20 12:15 06/28/20 12:14 05/11/20 14:37 Ipratropium [place] (Atrovent) 500 mcg Q6H PRN HHN Shortness of Breath 05/17/20 09:00 05/22/20 08:59 Lansoprazole (Prevacid) 30 mg DAILY GT 05/02/20 09:00 06/01/20 08:59 05/17/20 08:05 Lorazepam (Ativan) 1 mg Q6H PRN GT For Anxiety 05/17/20 08:59 05/24/20 08:58 05/17/20 17:40 Metoprolol Tartrate (Lopressor) 25 mg Q12HR ORAL 05/17/20 21:00 08/15/20 20:59 05/17/20 21:30 Metronidazole 100 ml @ 100 mls/hr Q8HR IVPB 05/16/20 14:00 05/23/20 13:59 05/18/20 05:59 Ondansetron HCl (Zofran) 4 mg Q6H PRN IVP Nausea & Vomiting 05/16/20 09:45 06/15/20 09:44 05/16/20 10:02 Prednisone (predniSONE) 5 mg DAILY GT 05/13/20 09:00 06/05/20 08:59 05/17/20 08:05 Quetiapine Fumarate (SEROqueL) 50 mg EVERY 8 HOURS GT 05/13/20 14:00 06/11/20 11:59 05/18/20 05:43 Vancomycin HCl 250 ml @ 166.667 mls/hr Q8H IVPB 05/18/20 11:00 05/23/20 10:59 Vancomycin HCl (Vanco pharmacy to dose) 1 ea DAILY PRN MISC Per rx protocol 05/15/20 18:45 06/14/20 18:44 Vitamin D (Vitamin D) 3,000 unit DAILY GT 05/18/20 09:00 06/17/20 08:59 Assessment/Plan Assessment/Plan 1.COVID-19 pneumonia. - Completed specific therapies - tapering steroid -> now on prednisone 5 mg QD - s/p bactrim for PJP prophylaxis 2. DVT ppx - Lovenox 3. Hypertension - On Norvasc 4. Leukocytosis; resolved - ID following - Candidemia documented 03/18/20 5. Elevated LFT; still elevated but downtrending - positive Hep C; treated in the past with IF - Abd US, Abd CT don't show evidence of cholecystitis - Lipase/amylase wnl 6. Respiratory failure -Intubated 03/28/20; s/p tracheostomy 04/25/20 -Gradually weaned off sedation IOV 7. Left UE edema and weakness - CT head w/o contrast -> Negative for acute intracranial bleed or mass effect - hx of thrombosis -> full dose Lovenox - seen by neuro - MRI brain per neuro -> however, cannot be done here at [facility] at this time 8. Pneumomediastinum - no PTX - now on T-piece 9. New onset vomiting with R sided abd pain - Abd US, abd CT - Zofran prn n/v - Dw surgery; monitor for now and resume GTF; will consider cholecystostomy tube if no improvement or worsens by Friday 10. Yeast UTI - ID following 11. BCx gram positive rods - ID following Will wean down FiO2 as tolerated CXR shows bilateral interstitial changes? fibrosis? S/p PEG Off IV fluids Dc planning to subacute -> ordered supportive employment case manager consult for placement On seroquel 50 mg PO TID; On Ativan and Hankinson DC pending placement -> hold for now given new onset vomiting and abd pain; hold Lovenox until cleared by surgery The care of this patient was discussed with my supervising physician Time spent for this encounter was approximately 31 minutes Edilson Marinelli May 18, 2020 09:20
[2020-05-18] MEDS: Vitamin D 1000 units Tab GT SCH (09:31)
--- NOTE | 2020-05-18 10:47 | Neurology Progress Note ---
Interim History Interim History ROS Limited/Unobtainable: Yes Events: repeat CT head done, no distress Objective Physical Exam Last Vital Signs Date Time Temp Pulse Resp B/P (MAP) Pulse Ox O2 Delivery O2 Flow Rate FiO2 05/18/20 09:32 103 148/73 05/18/20 08:00 T-piece 05/18/20 08:00 10.0 60 05/18/20 08:00 97.3 20 100 Laboratory Tests Test 05/18/20 06:00 White Blood Count 9.5 K/UL (4.8-10.8) Red Blood Count 3.42 M/UL (4.70-6.10) L Hemoglobin 9.6 G/DL (14.2-18.0) L Hematocrit 31.1 % (42.0-52.0) L Mean Corpuscular Volume 91 FL (80-99) Mean Corpuscular Hemoglobin 28.2 PG (27.0-31.0) Mean Corpuscular Hemoglobin Concent 31.0 G/DL (32.0-36.0) L Red Cell Distribution Width 15.3 % (11.6-14.8) H Platelet Count 344 K/UL (150-450) Mean Platelet Volume 6.1 FL (6.5-10.1) L Neutrophils (%) (Auto) 82.1 % (45.0-75.0) H Lymphocytes (%) (Auto) 9.6 % (20.0-45.0) L Monocytes (%) (Auto) 5.7 % (1.0-10.0) Eosinophils (%) (Auto) 1.8 % (0.0-3.0) Basophils (%) (Auto) 0.8 % (0.0-2.0) Sodium Level 137 MMOL/L (136-145) Potassium Level 3.3 MMOL/L (3.5-5.1) L Chloride Level 101 MMOL/L (98-107) Carbon Dioxide Level 30 MMOL/L (21-32) Anion Gap 6 mmol/L (5-15) Blood Urea Nitrogen 16 mg/dL (7-18) Creatinine 0.3 MG/DL (0.55-1.30) L Estimat Glomerular Filtration Rate > 60 mL/min (>60) Glucose Level 93 MG/DL (74-106) Calcium Level 9.0 MG/DL (8.5-10.1) Phosphorus Level 3.7 MG/DL (2.5-4.9) Magnesium Level 2.1 MG/DL (1.8-2.4) Total Bilirubin 0.6 MG/DL (0.2-1.0) Aspartate Amino Transf (AST/SGOT) 42 U/L (15-37) H Alanine Aminotransferase (ALT/SGPT) 214 U/L (12-78) H Alkaline Phosphatase 437 U/L (46-116) H C-Reactive Protein, Quantitative 10.5 mg/dL (0.00-0.90) H Pro-B-Type Natriuretic Peptide 347 pg/mL (0-125) H Total Protein 6.3 G/DL (6.4-8.2) L Albumin 2.5 G/DL (3.4-5.0) L Globulin 3.8 g/dL Albumin/Globulin Ratio 0.7 (1.0-2.7) L Amylase Level 48 U/L (25-115) Lipase 152 U/L (73-393) Vancomycin Level Trough 23.5 ug/mL (5.0-12.0) H Neurologic Exam Objective PHYSICAL EXAMINATION: General: Pt is awake oriented and has insight to situation. Neuro: resting in bed watching television,Awake,alert oriented x4 language parameters intact, Comprehension intact PERRLA, No nystagmus with gaze. No facial droop tongue is midline. Hearing intact. No involuntary movement, bedbound gait not tested. Right upper extremity 3/5, left upper extremity unable to move, raise and squeeze my hand bilateral lower extremities 1/5. Impression/Recommendations Status: stable, unchanged Diagnostic Impression LABORATORY DATA: Reviewed. IMAGING CT Head: Negative for acute intracranial bleed or mass effect Mild frontal cortical volume loss Cervical soft tissue emphysema, also reported on recent chest radiograph 05/17: Repeat CT HEAD: Very questionable slightly more prominent right frontal deep white matter low-attenuation, if real could represent an evolving lacunar infarct rather than just routine deep white matter ischemic change. If clinically indicated, MRI may be useful to clarify Otherwise unchanged noncontrast findings, since 05/15/2020, with mild age-related volume loss and periventricular deep white matter ischemic change. No unusual contrast enhancing lesion demonstrated. Assessment and Rec's: 1. Possible Evolving Right Lacunar Stroke which could be contributing to his Left Upper Extremity weakness --> CT head Very questionable slightly more prominent right frontal deep white matter low-attenuation, if real could represent an evolving lacunar infarct rather than just routine deep white matter ischemic change. If clinically indicated, MRI may be useful- at this time MRI cannot be done here Would recommend as an outpatient. --> LUE edema, unable to raise arm --> CT Head imaging reviewed as above --> Continue PT/OT and possible ARU as he is a strong candidate have d/w primary care team. 2. Covid 19 Disease, complicated --> s/p treatment. 3. 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 Smoker. 4. PNA Covid 19 Thank you for allowing us to participate in patient's care, Plan of care was reviewed with Dr. Manoj Lopez and he agrees with plan of care. Nina Zafar NP May 18, 2020 10:47
[2020-05-18] MEDS: Vancomycin 1.25gm/250ml Premix IVPB SCH ×2 (11:02→19:44)
--- NOTE | 2020-05-18 11:17 | Nephrology Progress Note ---
Assessment/Plan Problem List: (1) Dehydration (2) Electrolyte imbalance (3) COVID-19 virus infection (4) Pneumonia (5) DMII (diabetes mellitus, type 2) (6) Protein malnutrition Assessment Azotemia, hypernatremia Hypoalbuminemia Staff Otilia bacteremia COVID-19 isolation, pneumonia, bilateral infiltrate Hypertension Diabetes mellitus History of smoking Plan May 18: Patient seen. Low potassium addressed. Labs and medication list r eviewed. Clinically improving. Continue per consultants. May 17: Patient seen. Discussed with PRIYANKA Estevez. Patient clinically improved. Liver enzymes and lower. Renal parameters stable. White blood cells within normal limit. Continue per consultants. May 16: Renal parameters stable. Acute elevation in liver function tests White BC with right-sided abdominal pain. Likely acute Karen cystitis. Continue per GI/surgery. Medication list reviewed. Continue to monitor electrolytes and renal parameters. May 15: Labs reviewed. Renal parameters stable. Patient remains full code. Is trached to vent and has PEG. May 14: Labs reviewed. Stable renal parameters. May 13: No labs drawn today. Stable from renal standpoint of view. Continue per consultants. May 12: Labs reviewed. Renal parameters stable. Status quo. Continue per consultants. May 11: No labs drawn today. Will check can panel tomorrow. Medication list reviewed. Patient remains full code. Continue per consultants. May 10: Labs reviewed. Serum sodium higher. Renal parameters and electrolytes stable. Medication list reviewed. Continue per consultants. May 09: Labs reviewed. Serum sodium 135. Continue to monitor electrolytes. Medication list reviewed. Continue per current management. May 08: Labs reviewed. Renal parameters stable. Medication list reviewed. Continue per consultants. May 07: No labs drawn today reviewed. Clinically stable. Medication list reviewed. Will check lab tomorrow. Continue per consultants. May 06: Labs reviewed. Renal parameters stable. Continue per consultants. May 05: Labs reviewed. Renal parameters stable. Patient is due to be transferred to SCU. Continue per consultants. Medication list reviewed. May 04: Labs reviewed. Renal parameters stable. Overall status unchanged. Remains full code. Fed through GT tube. Trach to vent. FiO2 45%. Continue per consultants. May 03: No CHEM panel drawn today. Patient clinically stable. Has trach to vent and PEG. Will check lab tomorrow. May 02: Labs reviewed. Status quo. Patient is trached and vented. Also has PEG. Is full code. Stable from renal standpoint of view. May 01: Labs reviewed. Status quo. Patient has trach connected to vent. Has PEG. He is full code. FiO2 50%. April 30: Status quo. Labs reviewed. Renal parameters stable. Medication list reviewed. April 29: Status quo. Received PEG yesterday. Has trach connected to vent. FiO2 40%. Labs reviewed. Medication list reviewed. Continue same April 28: Status quo. Labs reviewed. Renal parameters stable. Patient n.p.o. due for PEG insertion. IV changed to D5 normal saline. Continue per consultants. April 27: Status quo. Labs reviewed. Medication list reviewed. Stable from renal standpoint of view. Abnormal electrolytes addressed. April 26: Patient is now trached and connected to vent. FiO2 70%. Labs reviewed. Renal parameters stable. Medication list reviewed. Continue per consultants. April 25: Status quo. Full code. FiO2 55%. No labs drawn today. Continue to monitor electrolytes and renal parameters. Continue per consultants. April 24: Status quo. Full code. Intubated on ventilator. FiO2 65%. Labs reviewed. Renal parameters and electrolytes stable. April 23: Status unchanged. Full code. Intubated on ventilator. FiO2 75%. Labs reviewed. Renal parameters stable. Continue per consultants. April 22: Labs reviewed. Patient remains intubated on ventilator and full code. FiO2 90%. Day 77 hospitalization. Not much to add from renal standpoint of view April 21: No CHEM panel drawn today. FiO2 60%. Patient full code. Continue per consultants. April 20: Labs reviewed. Renal parameters stable. Patient remains full code. Intubated on ventilator with FiO2 currently at 70%. Continue per consultants. April 19: No labs drawn today. Remains full code on FiO2 of 100%. Continue per consultants. April 18: Status quo. Labs reviewed. Renal parameters stable. April 17: Status quo. Intubated on ventilator. Full code. Labs reviewed. Electrolytes and renal parameters stable. Continue per consultants. April 16: Girlfriend in the room. Patient awake. Intubated. Full code. Labs reviewed. Abnormal electrolyte addressed. Continue per consultants. April 15: Labs reviewed. Electrolytes and renal parameters stable. Patient full code. Continues to be intubated on ventilator. April 14: Status quo. Labs reviewed. Remains intubated on ventilator. Full code. Continue per consultants. April 13: Status quo. Labs reviewed. Renal parameters electrolytes stable. Continue per current treatment plan. April 12: On higher FiO2. Will resume Lasix daily. Continue to monitor electrolytes and renal parameters. Per consultants. April 11: FiO2 went up to 85%. Renal parameters and electrolytes reasonably well-maintained. Will monitor serum potassium. Will give IV Lasix. April 10: Status quo. Labs reviewed. Remains intubated on ventilator with FiO2 of 65%. Remains full code. Stable from renal standpoint to view. Repeat vitamin D level on April 08 pending April 09: Status quo. Labs reviewed. Stable from renal standpoint of view. Continue per consultants. April 08: Discussed with RN. Labs reviewed. Clinically improving. Requires lower PEEP. Continue per pulmonary. Continue to monitor renal parameters. April 07: Remains full code and on ventilator. Labs reviewed. Renal parameters and electrolytes stable. Continue per consultants. Blood pressure marginally improved. April 06: Full code. On ventilator. Blood pressure 80-90 systolic. IV Lasix discontinued. Free water through tube feeding ordered. Continue to monitor electrolytes and serum sodium. Down on fentanyl as possible. Discussed with RN Kevin. Clonidine patch discontinued. April 05: Status quo. Remains full code. Remains intubated. Labs reviewed. Renal parameters stable. Serum sodium 150 unchanged. Continue per consultants. April 04: Remains intubated and on ventilator. Remains full code. Labs reviewed. Serum sodium 150 unchanged. Renal parameters stable. Continue per ID and pulmonary. April 03: Intubated. On ventilator. Full code. Labs reviewed. Serum sodium 150 unchanged. Continue to monitor renal parameters. Continue per pulmonary and ID. April 02: Full code. On ventilator. Discussed with RN. Serum sodium slightly higher. Will cut down on IV Lasix. Continue per consultants. Continue to monitor renal parameters and electrolytes. April 01: Full code. Remains on ventilator. Labs reviewed. Stable from renal standpoint of view. Continue per consultants. March 31: Full code . Remains intubated on ventilator. Labs reviewed. Patient appears toxic. Discussed with RN. Maintenance IV discontinued. Medication list reviewed. Blood pressure medication stopped due to low blood pressure. Levemir insulin stopped. Continue monitor blood sugar and sliding scale insulin. March 30: Full code. On ventilator. Labs reviewed. Clonidine patch dose increased. Lasix increased. 3% saline 1 time ordered. Continue to monitor electrolytes and renal parameters. March 29: Remains full code. On mechanical ventilation. On tube feeding. Will DC TPN. Will start on maintenance IV fluid. Continue to monitor renal parameters. March 28: On BiPAP. Full code. On TPN. Labs reviewed. Discussed with pharmacy. Continue as is. Watch serum potassium. March 27: Remains on BiPAP. No chemistry panel done today. Full code. On TPN. Will check lab tomorrow. March 26: Remains on BiPAP. Remains on TPN. Labs reviewed. Electrolytes and chemistries within normal limits. Continue as is. March 25: Remains on TPN. Labs reviewed. Discussed with pharmacy. Change IV Protonix to p.o. Continue 3% saline infusion with Lasix. Patient full code. March 24: Continue to be on TPN. Labs are reviewed. Aim to collect electrolytes. Discussed with pharmacy. Continue current consultants. March 23: Continues to be on TPN. Labs reviewed. Electrolytes and chemistries all acceptable. Discussed with pharmacy. Continue current management. March 22: On TPN. Labs reviewed. Low sodium noted. 3% saline to be continued. Continue to monitor electrolytes. Discussed with pharmacy. March 21: On TPN. Labs reviewed. Continue 3% saline and Lasix for mild hyponatremia. Continue TPN as these. Discussed with pharmacy. March 20: Remains on TPN. Labs reviewed. Serum sodium higher on IV Lasix and 3% saline infusion. Continue TPN as is. Continue to monitor renal parameters and electrolytes. Discussed with Dr. Mata March 19: Remains on TPN. Labs reviewed. Serum sodium 128. Will give 3% saline with IV Lasix. Continue to monitor electrolytes. No change in TPN composition. Discussed with pharmacy. March 18: Remains on TPN. Labs reviewed. Discussed with pharmacist. Will give 3 doses of IV Lasix 20 mg every 8 hours. Continue to monitor serum sodium electrolytes uric acid. White blood cells down. Continue per consultants. March 17: On TPN. Labs reviewed. Discussed with pharmacist. Sodium content increase. Continue to monitor CMP. Patient continues to have leukocytosis. March 16: On TPN. Labs reviewed. Discussed with pharmacist. Appropriate changes made. Continue to monitor electrolytes. March 15: Remains on TPN. Labs reviewed. Discussed with pharmacist. Continue per current management. March 14: Remains on TPN. Labs reviewed, stable. Vitamin D level low, replacement ordered. Continue to monitor electrolytes and renal parameters. March 13: Patient remains on TPN. Discussed with pharmacist. TPN's sodium content adjusted. Labs reviewed. Continue to monitor electrolytes. Blood pressure remains stable. Continue per consultants. March 12: Patient on TPN. Labs reviewed. CPK remains elevated. Abnormal electrolytes and high blood sugar discussed with pharmacist and TPN adjusted. Continue to monitor labs. Oral Protonix added. Ibuprofen discontinued. Can continue to monitor electrolytes and chemistries. Levemir for high blood sugar added. March 11: Patient on TPN. Labs as of 11:15 AM is still pending. Continue per current treatment plan. Will check labs and adjust TPN as needed. Continue per consultants. March 10: Patient on TPN. Labs reviewed. Electrolytes overall stable. CPK is elevated. Will monitor electrolyte, CPK level, lipid panel. Continue per consultants. Discussed with pharmacist. Discussed with RN. Nutritional evaluation noted. Previously: D5W 100 cc an hour Monitor electrolytes renal parameters TPN and Intralipid ordered Will follow Continue per consultants Dietary consult requested Subjective ROS Limited/Unobtainable: Yes Objective Objective Last 24 Hour Vital Signs Date Time Temp Pulse Resp B/P (MAP) Pulse Ox O2 Delivery O2 Flow Rate FiO2 05/18/20 09:32 103 148/73 05/18/20 09:32 103 148/73 05/18/20 08:00 101 05/18/20 08:00 T-piece 05/18/20 08:00 10.0 60 05/18/20 08:00 97.3 103 20 148/73 (98) 100 05/18/20 07:10 98 Cool Aerosol 10.0 60 05/18/20 06:13 97.0 05/18/20 04:00 95 05/18/20 04:00 97.0 98 20 137/74 (95) 96 05/18/20 04:00 10.0 60 05/18/20 04:00 T-piece 05/18/20 00:58 96 Cool Aerosol 10.0 60 05/18/20 00:00 97.0 88 18 107/64 (78) 97 05/17/20 23:56 10.0 60 05/17/20 23:55 86 05/17/20 23:55 T-piece 05/17/20 21:30 100 129/75 05/17/20 20:00 97.7 100 20 129/75 (93) 97 05/17/20 20:00 T-piece 05/17/20 20:00 100 05/17/20 20:00 10.0 60 05/17/20 19:38 97 Cool Aerosol 10.0 60 05/17/20 18:10 108 20 125/82 95 05/17/20 17:40 106 22 123/84 96 05/17/20 17:39 106 123/84 05/17/20 16:00 97.7 121 18 123/84 (97) 95 05/17/20 16:00 10.0 60 05/17/20 16:00 T-piece 05/17/20 15:14 124 05/17/20 13:30 95 Mechanical Ventilator 60 05/17/20 13:30 125 18 95 Mechanical Ventilator 60 05/17/20 11:46 Mechanical Ventilator 05/17/20 11:45 97.5 113 20 129/71 (90) 96 05/17/20 11:39 113 Intake and Output 05/17/20 05/18/20 19:00 07:00 Intake Total 830 ml 30 ml Output Total 1100 ml 1000 ml Balance -270 ml -970 ml Free Water 150 ml IV Total 500 ml Tube Feeding 180 ml 30 ml Output Urine Total 1100 ml 1000 ml # Bowel Movements 2 Current Medications Medications (Trade) Dose Ordered Sig/Dennis Route PRN Reason Start Time Stop Time Status Last Admin Dose Admin Acetaminophen (Tylenol) 650 mg Q4H PRN GT Mild Pain (Pain Scale 1-3) 05/02/20 08:45 06/01/20 08:44 05/08/20 20:28 Acetaminophen/ Hydrocodone Bitart ([place] 10/325) 1 tab Q4H PRN ORAL For Pain 05/16/20 09:45 05/23/20 09:44 05/18/20 05:42 Amlodipine Besylate (Norvasc) 2.5 mg BID GT 05/02/20 18:00 06/02/20 08:59 05/18/20 09:32 Atorvastatin Calcium (Lipitor) 40 mg BEDTIME GT 05/18/20 21:00 08/16/20 20:59 Barium Sulfate (Readi-Cat 2) 450 ml NOW PRN ORAL Radiology Procedure 05/16/20 11:30 05/18/20 11:29 Barium Sulfate (Varibar Honey) 250 ml NOW PRN MC RAD 05/17/20 10:15 05/20/20 10:13 Barium Sulfate (Varibar Runge) 240 ml NOW PRN MC RAD 05/17/20 10:15 05/20/20 10:13 Barium Sulfate (Varibar Pudding) 230 ml NOW PRN MC RAD 05/17/20 10:15 05/20/20 10:13 Barium Sulfate (Varibar Thin Liquid powder) 148 gm NOW PRN MC RAD 05/17/20 10:15 05/20/20 10:13 Cefepime HCl 2 gm/ Dextrose 100 ml @ 200 mls/hr EVERY 8 HOURS IVPB 05/15/20 22:00 05/22/20 21:59 05/18/20 05:43 Chlorhexidine Gluconate (Marlen-Hex 2%) 1 applic DAILY@2000 TOPIC 03/30/20 20:00 06/28/20 19:59 05/17/20 20:00 Famotidine (Pepcid) 20 mg Q12HR PRN GT HEARTBURN 05/08/20 13:15 06/01/20 15:14 05/13/20 08:52 Hydralazine HCl (Apresoline) 10 mg Q4H PRN IV For High Blood Pressure 03/30/20 12:15 06/28/20 12:14 05/11/20 14:37 Ipratropium [place] (Atrovent) 500 mcg Q6H PRN HHN Shortness of Breath 05/17/20 09:00 05/22/20 08:59 Lansoprazole (Prevacid) 30 mg DAILY GT 05/02/20 09:00 06/01/20 08:59 05/18/20 09:32 Lorazepam (Ativan) 1 mg Q6H PRN GT For Anxiety 05/17/20 08:59 05/24/20 08:58 05/17/20 17:40 Metoprolol Tartrate (Lopressor) 25 mg Q12HR ORAL 05/17/20 21:00 08/15/20 20:59 05/18/20 09:32 Metronidazole 100 ml @ 100 mls/hr Q8HR IVPB 05/16/20 14:00 05/23/20 13:59 05/18/20 05:59 Ondansetron HCl (Zofran) 4 mg Q6H PRN IVP Nausea & Vomiting 05/16/20 09:45 06/15/20 09:44 05/16/20 10:02 Potassium Chloride 100 ml @ 50 mls/hr ONCE ONCE IVPB 05/18/20 09:30 05/18/20 11:29 05/18/20 09:56 Prednisone (predniSONE) 5 mg DAILY GT 05/13/20 09:00 06/05/20 08:59 05/18/20 09:30 Quetiapine Fumarate (SEROqueL) 50 mg EVERY 8 HOURS GT 05/13/20 14:00 06/11/20 11:59 05/18/20 05:43 Vancomycin HCl 250 ml @ 166.667 mls/hr Q8H IVPB 05/18/20 11:00 05/23/20 10:59 05/18/20 11:02 Vancomycin HCl (Vanco pharmacy to dose) 1 ea DAILY PRN MISC Per rx protocol 05/15/20 18:45 06/14/20 18:44 Vitamin D (Vitamin D) 3,000 unit DAILY GT 05/18/20 09:00 06/17/20 08:59 05/18/20 09:31 Laboratory Tests 05/18/20 06:00: White Blood Count 9.5, Red Blood Count 3.42L, Hemoglobin 9.6L, Hematocrit 31.1L, Mean Corpuscular Volume 91, Mean Corpuscular Hemoglobin 28.2, Mean Corpuscular Hemoglobin Concent 31.0L, Red Cell Distribution Width 15.3H, Platelet Count 344, Mean Platelet Volume 6.1L, Neutrophils (%) (Auto) 82.1H, Lymphocytes (%) (Auto) 9.6L, Monocytes (%) (Auto) 5.7, Eosinophils (%) (Auto) 1.8, Basophils (%) (Auto) 0.8, Sodium Level 137, Potassium Level 3.3L, Chloride Level 101, Carbon Dioxide Level 30, Anion Gap 6, Blood Urea Nitrogen 16, Creatinine 0.3L, Estimat Glomerular Filtration Rate > 60, Glucose Level 93, Calcium Level 9.0, Phosphorus Level 3.7, Magnesium Level 2.1, Total Bilirubin 0.6, Aspartate Amino Transf (AST/SGOT) 42H, Alanine Aminotransferase (ALT/SGPT) 214H, Alkaline Phosphatase 437H, C-Reactive Protein, Quantitative 10.5H, Pro-B-Type Natriuretic Peptide 347H, Total Protein 6.3L, Albumin 2.5L, Globulin 3.8, Albumin/Globulin Ratio 0.7L, Amylase Level 48, Lipase 152, Vancomycin Level Trough 23.5H Height (Feet): 5 Height (Inches): 10.00 Weight (Pounds): 243 General Appearance: no apparent distress EENT: other - Trach to vent Cardiovascular: tachycardia Respiratory/Chest: decreased breath sounds Abdomen: distended Rubin Cooper MD May 18, 2020 11:17
--- NOTE | 2020-05-18 11:51 | NUR ---
0720: Received report from previous RN. Pt remains on T-piece. Pt in NAD. 0830: Spoke with YENI Marinelli. No new orders at this time. 1000: Called case management to follow up with placement. Will receive call back. 1100: Spoke with YENI Zafar with neurology. Will speak to cardiology about restarting lovenox. 1115: Pt working with pt at this time. 1130: Spoke to sayda Dunlap to restart pt on lovenox. No surgery anticipated at this time. 1145: Spoke with sayda Broderick to place orders for lovenox. Orders placed accordingly. 1200: Pt in NAD. Pt repositioned. Vital signs stable. Pt remains on t-piece. Pt denies pain at this time. Pt coughing thick green secretions. Bed in lowest position. Call crum within reach. Side rail x3. Will continue to monitor.
[2020-05-18 12:00] VITALS: BP 143/81
--- NOTE | 2020-05-18 12:29 | Surgery Progress Note ---
Surgery Progress Note Subjective Procedure Performed tracheostomy Additional Comments pain improved no n/v/f/c labs improved wbc resolved lft's trending down hold on procedure okay to resume anticoag ct head noted neuro input Objective Last 24 Hour Vital Signs Date Time Temp Pulse Resp B/P (MAP) Pulse Ox O2 Delivery O2 Flow Rate FiO2 05/18/20 12:00 89 05/18/20 12:00 96.6 89 20 143/81 (101) 98 05/18/20 09:32 103 148/73 05/18/20 09:32 103 148/73 05/18/20 08:00 101 05/18/20 08:00 T-piece 05/18/20 08:00 10.0 60 05/18/20 08:00 97.3 103 20 148/73 (98) 100 05/18/20 07:10 98 Cool Aerosol 10.0 60 05/18/20 06:13 97.0 05/18/20 04:00 95 05/18/20 04:00 97.0 98 20 137/74 (95) 96 05/18/20 04:00 10.0 60 05/18/20 04:00 T-piece 05/18/20 00:58 96 Cool Aerosol 10.0 60 05/18/20 00:00 97.0 88 18 107/64 (78) 97 05/17/20 23:56 10.0 60 05/17/20 23:55 86 05/17/20 23:55 T-piece 05/17/20 21:30 100 129/75 05/17/20 20:00 97.7 100 20 129/75 (93) 97 05/17/20 20:00 T-piece 05/17/20 20:00 100 05/17/20 20:00 10.0 60 05/17/20 19:38 97 Cool Aerosol 10.0 60 05/17/20 18:10 108 20 125/82 95 05/17/20 17:40 106 22 123/84 96 05/17/20 17:39 106 123/84 05/17/20 16:00 97.7 121 18 123/84 (97) 95 05/17/20 16:00 10.0 60 05/17/20 16:00 T-piece 05/17/20 15:14 124 05/17/20 13:30 95 Mechanical Ventilator 60 05/17/20 13:30 125 18 95 Mechanical Ventilator 60 I&O Intake and Output 05/17/20 05/18/20 19:00 07:00 Intake Total 830 ml 30 ml Output Total 1100 ml 1000 ml Balance -270 ml -970 ml Free Water 150 ml IV Total 500 ml Tube Feeding 180 ml 30 ml Output Urine Total 1100 ml 1000 ml # Bowel Movements 2 Cardiovascular: RSR Respiratory: decreased breath sounds Abdomen: soft, non-tender, present bowel sounds, non-distended Extremities: no edema, no tenderness, no cyanosis Laboratory Tests Test 05/18/20 06:00 White Blood Count 9.5 K/UL (4.8-10.8) Red Blood Count 3.42 M/UL (4.70-6.10) L Hemoglobin 9.6 G/DL (14.2-18.0) L Hematocrit 31.1 % (42.0-52.0) L Mean Corpuscular Volume 91 FL (80-99) Mean Corpuscular Hemoglobin 28.2 PG (27.0-31.0) Mean Corpuscular Hemoglobin Concent 31.0 G/DL (32.0-36.0) L Red Cell Distribution Width 15.3 % (11.6-14.8) H Platelet Count 344 K/UL (150-450) Mean Platelet Volume 6.1 FL (6.5-10.1) L Neutrophils (%) (Auto) 82.1 % (45.0-75.0) H Lymphocytes (%) (Auto) 9.6 % (20.0-45.0) L Monocytes (%) (Auto) 5.7 % (1.0-10.0) Eosinophils (%) (Auto) 1.8 % (0.0-3.0) Basophils (%) (Auto) 0.8 % (0.0-2.0) Sodium Level 137 MMOL/L (136-145) Potassium Level 3.3 MMOL/L (3.5-5.1) L Chloride Level 101 MMOL/L (98-107) Carbon Dioxide Level 30 MMOL/L (21-32) Anion Gap 6 mmol/L (5-15) Blood Urea Nitrogen 16 mg/dL (7-18) Creatinine 0.3 MG/DL (0.55-1.30) L Estimat Glomerular Filtration Rate > 60 mL/min (>60) Glucose Level 93 MG/DL (74-106) Calcium Level 9.0 MG/DL (8.5-10.1) Phosphorus Level 3.7 MG/DL (2.5-4.9) Magnesium Level 2.1 MG/DL (1.8-2.4) Total Bilirubin 0.6 MG/DL (0.2-1.0) Aspartate Amino Transf (AST/SGOT) 42 U/L (15-37) H Alanine Aminotransferase (ALT/SGPT) 214 U/L (12-78) H Alkaline Phosphatase 437 U/L (46-116) H C-Reactive Protein, Quantitative 10.5 mg/dL (0.00-0.90) H Pro-B-Type Natriuretic Peptide 347 pg/mL (0-125) H Total Protein 6.3 G/DL (6.4-8.2) L Albumin 2.5 G/DL (3.4-5.0) L Globulin 3.8 g/dL Albumin/Globulin Ratio 0.7 (1.0-2.7) L Amylase Level 48 U/L (25-115) Lipase 152 U/L (73-393) Vancomycin Level Trough 23.5 ug/mL (5.0-12.0) H Plan Problems: (1) Pneumonia (2) Staphylococcus aureus bacteremia (3) COVID-19 virus infection Assessment & Plan: prior now neg improving (4) Chest pain (5) Hypertension (6) Dehydration (7) Electrolyte imbalance (8) DMII (diabetes mellitus, type 2) (9) Protein malnutrition Assessment & Plan: DAILY ESTIMATED NEEDS: Needs based on Critical care, wound 81kg abw 22-28 kcals/kg 9916-9706 total kcals 1.25-2 g protein/kg 101-162 g total protein 25-30 mL/kg [id number] total fluid mLs NUTRITION DIAGNOSIS: * Increased kcal/prot/micronutrients needs R/T wound healing as evidenced by pt w/ new multiple pressure injuries, 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 * Inadequate oral intake R/T clinical and respiratory status as evidenced by COVID-19 ++, on continuous BIPAP, prolonged meal refusals, pt is now on TPN, pt orally intubated (03/28), s/p trach placement (04/26), and s/p PEG placement (04/27), now on GT feeds. * Decreased sodium and fat needs r/t HTN and obesity as evidenced by pt w/ cardiac history, elev BP (159/98-> now improved, on BP meds and diuretics), BMI >30, obese per guidelines. (INACTIVE) CURRENT TF:Glucerna 1.5 goal of 50 + Prosource BID ENTERAL NUTRITION RECOMMENDATIONS: Glucerna 1.5 @ 50ml/hr x 24 hrs + Prosource 1pkt BID to provide 1200ml, 1800kcal, 99g +22g prot (121g total prot), 926ml free water * Maintain current TF order * Con't Prosource 1pkt BID (additional 22g prot) to better meet est prot needs. ADDITIONAL RECOMMENDATIONS: 1) Maintain calibrated bedscale wts 2) Monitor BGs closely w/ Solumedrol (POC glu wnl at this time) 3) Monitor lytes, replete as needed 4) Monitor TF tolerance: PEG placed 04/28, cont to increase TF to goal as tolerated 5) Wound healing: Add Michael BID (mix w/ 2-4oz of water) TF @ goal provides 100% RDI, add Vit C 500mg QD, ZnSO4 220mg [id number] (10) Respiratory insufficiency Assessment & Plan: 64-year-old male with respiratory insufficiency intubated in an intensive care unit. Patient has been unable to safely wean off ventilatory support. Surgery called to evaluate for tracheostomy. After careful evaluation patient is a candidate for tracheostomy. In the meantime will obtain consent. If consent obtained will proceed with scheduling. Thank you for your participation's care will follow recommendations improving trach okay agitated weaning sedation no n/v cont weaning transition to oral meds via g tube get off drips improving downgraded weaning well more alert and awake responsive will need placement trach collar consideration pending sub acute placement okay for placement cont trach care leave sutures in place as dissolvable recovering well fully awake now tolerating diet d/c planning awaiting placement (11) LFT elevation Assessment & Plan: leukocytosis lfts elevated no n/v US ordered trend labs abx US noted labs improved hold anticoag cont tf trend labs pain improved no n/v/f/c labs improved wbc resolved lft's trending down hold on procedure okay to resume anticoag ct head noted neuro input Booker Rausch May 18, 2020 12:29
--- NOTE | 2020-05-18 12:56 | General Progress Note ---
Subjective ROS Limited/Unobtainable: No Allergies: Coded Allergies: No Known Allergies (Unverified , 02/05/20) Objective Last 24 Hour Vital Signs Date Time Temp Pulse Resp B/P (MAP) Pulse Ox O2 Delivery O2 Flow Rate FiO2 05/18/20 12:00 89 05/18/20 12:00 96.6 89 20 143/81 (101) 98 05/18/20 09:32 103 148/73 05/18/20 09:32 103 148/73 05/18/20 08:00 101 05/18/20 08:00 T-piece 05/18/20 08:00 10.0 60 05/18/20 08:00 97.3 103 20 148/73 (98) 100 05/18/20 07:10 98 Cool Aerosol 10.0 60 05/18/20 06:13 97.0 05/18/20 04:00 95 05/18/20 04:00 97.0 98 20 137/74 (95) 96 05/18/20 04:00 10.0 60 05/18/20 04:00 T-piece 05/18/20 00:58 96 Cool Aerosol 10.0 60 05/18/20 00:00 97.0 88 18 107/64 (78) 97 05/17/20 23:56 10.0 60 05/17/20 23:55 86 05/17/20 23:55 T-piece 05/17/20 21:30 100 129/75 05/17/20 20:00 97.7 100 20 129/75 (93) 97 05/17/20 20:00 T-piece 05/17/20 20:00 100 05/17/20 20:00 10.0 60 05/17/20 19:38 97 Cool Aerosol 10.0 60 05/17/20 18:10 108 20 125/82 95 05/17/20 17:40 106 22 123/84 96 05/17/20 17:39 106 123/84 05/17/20 16:00 97.7 121 18 123/84 (97) 95 05/17/20 16:00 10.0 60 05/17/20 16:00 T-piece 05/17/20 15:14 124 05/17/20 13:30 95 Mechanical Ventilator 60 05/17/20 13:30 125 18 95 Mechanical Ventilator 60 Intake and Output 05/17/20 05/18/20 19:00 07:00 Intake Total 830 ml 30 ml Output Total 1100 ml 1000 ml Balance -270 ml -970 ml Free Water 150 ml IV Total 500 ml Tube Feeding 180 ml 30 ml Output Urine Total 1100 ml 1000 ml # Bowel Movements 2 Laboratory Tests 05/18/20 06:00: White Blood Count 9.5, Red Blood Count 3.42L, Hemoglobin 9.6L, Hematocrit 31.1L, Mean Corpuscular Volume 91, Mean Corpuscular Hemoglobin 28.2, Mean Corpuscular Hemoglobin Concent 31.0L, Red Cell Distribution Width 15.3H, Platelet Count 344, Mean Platelet Volume 6.1L, Neutrophils (%) (Auto) 82.1H, Lymphocytes (%) (Auto) 9.6L, Monocytes (%) (Auto) 5.7, Eosinophils (%) (Auto) 1.8, Basophils (%) (Auto) 0.8, Sodium Level 137, Potassium Level 3.3L, Chloride Level 101, Carbon Dioxide Level 30, Anion Gap 6, Blood Urea Nitrogen 16, Creatinine 0.3L, Estimat Glomerular Filtration Rate > 60, Glucose Level 93, Calcium Level 9.0, Phosphorus Level 3.7, Magnesium Level 2.1, Total Bilirubin 0.6, Aspartate Amino Transf (AST/SGOT) 42H, Alanine Aminotransferase (ALT/SGPT) 214H, Alkaline Phosphatase 437H, C-Reactive Protein, Quantitative 10.5H, Pro-B-Type Natriuretic Peptide 347H, Total Protein 6.3L, Albumin 2.5L, Globulin 3.8, Albumin/Globulin Ratio 0.7L, Amylase Level 48, Lipase 152, Vancomycin Level Trough 23.5H Height (Feet): 5 Height (Inches): 10.00 Weight (Pounds): 243 General Appearance: no apparent distress EENT: normal ENT inspection Neck: normal alignment Cardiovascular: normal rate Respiratory/Chest: lungs clear Abdomen: normal bowel sounds, non tender, soft Extremities: non-tender Assessment/Plan Status: stable, unchanged Assessment/Plan: abd pain vomiting elevated LFTS GTF abd us>>>reviewed CT>>>reviewed repeat labs fu surg recs swallow Da Yanes MD May 18, 2020 12:56
--- NOTE | 2020-05-18 14:12 | NUR ---
INSURANCE CLINCALS FAXED TO [employer] T: [phone] #1 F: [phone] AND ALFRED INSURANCE ADJUSTER:JACQUELINE JAMES T: [phone] F: [phone]
[2020-05-18 16:00] VITALS: BP 149/75
[2020-05-18] MEDS: LORazepam 1mg tab GT PRN (17:00)
--- NOTE | 2020-05-18 17:16 | Diagnostic Imaging Report ---
Indication: Shortness of breath Technique: One view of the chest Comparison: 05/17/2020 Findings: Subcutaneous emphysema and cervical emphysema appears slightly improved. Pneumomediastinum persists. Bilateral infiltrates are probably unchanged, allowing for lower lung volumes on the current exam. Tracheostomy, right arm PICC are again demonstrated. The heart size is normal. Impression: Slightly decreased subcutaneous emphysema. Otherwise little currency exchange specialist one day
--- NOTE | 2020-05-18 18:34 | NUR ---
1600: Spoke with respiratory regarding MRI. Unable to do MRI with pt on cool aersol as pt would have to be bagged the entire time. Pt is also refusing MRI at this time. Will continue to follow.
--- NOTE | 2020-05-18 19:25 | Cardiology Progress Note ---
Assessment/Plan Assessment/Plan Acute covid 19 pneumonia hypoxemia infiltrate bilat bacteremia hypernatremia / hyponatremia mild abn lfts tachy post intubation fever fungemia dvt upper ext right sided abd pain now off the vent abd pain c/w cholecystitis improved sx s/p trach / peg now afebrile now hypoxemia unlikely cardiac related back on full dose anticoag due to dvt ue cr is stable d/w rn noredwin for bp fuly awake off vent bp better on norvasc to be transferred to [facility] no plans for surgery Subjective Cardiovascular: Denies: chest pain Respiratory: Denies: shortness of breath Gastrointestinal/Abdominal: Denies: abdominal pain, nausea Objective Last 24 Hour Vital Signs Date Time Temp Pulse Resp B/P (MAP) Pulse Ox O2 Delivery O2 Flow Rate FiO2 05/18/20 17:59 99 149/75 05/18/20 16:00 88 05/18/20 16:00 T-piece 05/18/20 16:00 10.0 60 05/18/20 16:00 96.9 99 20 149/75 (99) 98 05/18/20 13:00 98 Cool Aerosol 10.0 60 05/18/20 12:00 10.0 60 05/18/20 12:00 89 05/18/20 12:00 T-piece 05/18/20 12:00 96.6 89 20 143/81 (101) 98 05/18/20 09:32 103 148/73 05/18/20 09:32 103 148/73 05/18/20 08:00 101 05/18/20 08:00 T-piece 05/18/20 08:00 10.0 60 05/18/20 08:00 97.3 103 20 148/73 (98) 100 05/18/20 07:10 98 Cool Aerosol 10.0 60 05/18/20 06:13 97.0 05/18/20 04:00 95 05/18/20 04:00 97.0 98 20 137/74 (95) 96 05/18/20 04:00 10.0 60 05/18/20 04:00 T-piece 05/18/20 00:58 96 Cool Aerosol 10.0 60 05/18/20 00:00 97.0 88 18 107/64 (78) 97 05/17/20 23:56 10.0 60 05/17/20 23:55 86 05/17/20 23:55 T-piece 05/17/20 21:30 100 129/75 05/17/20 20:00 97.7 100 20 129/75 (93) 97 05/17/20 20:00 T-piece 05/17/20 20:00 100 05/17/20 20:00 10.0 60 05/17/20 19:38 97 Cool Aerosol 10.0 60 General Appearance: no apparent distress, alert Cardiovascular: normal rate Respiratory/Chest: lungs clear Abdomen: normal bowel sounds, non tender, soft Extremities: no swelling Intake and Output 05/17/20 05/18/20 19:00 07:00 Intake Total 830 ml 80 ml Output Total 1100 ml 1000 ml Balance -270 ml -920 ml Free Water 150 ml IV Total 500 ml Tube Feeding 180 ml 80 ml Output Urine Total 1100 ml 1000 ml # Bowel Movements 2 Laboratory Tests Test 05/18/20 06:00 White Blood Count 9.5 K/UL (4.8-10.8) Red Blood Count 3.42 M/UL (4.70-6.10) L Hemoglobin 9.6 G/DL (14.2-18.0) L Hematocrit 31.1 % (42.0-52.0) L Mean Corpuscular Volume 91 FL (80-99) Mean Corpuscular Hemoglobin 28.2 PG (27.0-31.0) Mean Corpuscular Hemoglobin Concent 31.0 G/DL (32.0-36.0) L Red Cell Distribution Width 15.3 % (11.6-14.8) H Platelet Count 344 K/UL (150-450) Mean Platelet Volume 6.1 FL (6.5-10.1) L Neutrophils (%) (Auto) 82.1 % (45.0-75.0) H Lymphocytes (%) (Auto) 9.6 % (20.0-45.0) L Monocytes (%) (Auto) 5.7 % (1.0-10.0) Eosinophils (%) (Auto) 1.8 % (0.0-3.0) Basophils (%) (Auto) 0.8 % (0.0-2.0) Sodium Level 137 MMOL/L (136-145) Potassium Level 3.3 MMOL/L (3.5-5.1) L Chloride Level 101 MMOL/L (98-107) Carbon Dioxide Level 30 MMOL/L (21-32) Anion Gap 6 mmol/L (5-15) Blood Urea Nitrogen 16 mg/dL (7-18) Creatinine 0.3 MG/DL (0.55-1.30) L Estimat Glomerular Filtration Rate > 60 mL/min (>60) Glucose Level 93 MG/DL (74-106) Calcium Level 9.0 MG/DL (8.5-10.1) Phosphorus Level 3.7 MG/DL (2.5-4.9) Magnesium Level 2.1 MG/DL (1.8-2.4) Total Bilirubin 0.6 MG/DL (0.2-1.0) Aspartate Amino Transf (AST/SGOT) 42 U/L (15-37) H Alanine Aminotransferase (ALT/SGPT) 214 U/L (12-78) H Alkaline Phosphatase 437 U/L (46-116) H C-Reactive Protein, Quantitative 10.5 mg/dL (0.00-0.90) H Pro-B-Type Natriuretic Peptide 347 pg/mL (0-125) H Total Protein 6.3 G/DL (6.4-8.2) L Albumin 2.5 G/DL (3.4-5.0) L Globulin 3.8 g/dL Albumin/Globulin Ratio 0.7 (1.0-2.7) L Amylase Level 48 U/L (25-115) Lipase 152 U/L (73-393) Vancomycin Level Trough 23.5 ug/mL (5.0-12.0) H Microbiology Date/Time Source Procedure Growth Status 05/16/20 20:00 Blood Blood Culture - Preliminary NO GROWTH AFTER 24 HOURS Resulted 05/16/20 19:45 Blood Blood Culture - Preliminary NO GROWTH AFTER 24 HOURS Resulted 05/16/20 10:40 Sputum Gram Stain - Final Resulted 05/16/20 10:40 Sputum Culture - Preliminary YEAST Usual Respiratory Hillary Resulted Objective pt seen persoanlly Manan Awan MD May 18, 2020 19:25
--- NOTE | 2020-05-18 19:40 | NUR ---
Report given to PRIYANKA Berkowitz. Pt in NAD. Respiratory at bedside to suction pt. All questions answered. Care continues.
--- NOTE | 2020-05-18 19:42 | NUR ---
NURSE NOTES: Received pt and report from PRIYANKA Posey. Observed pt resting in bed with both eyes open. Pt is A/Ox4. environmental monitoring technician is in placed; pt is NSR (89 bpm). ALBERT PICC line intact, asymptomatic, and patent. Pt has a T-piece; Shiley 8.0 on aerosol therapy 10L; 60% FiO2. No respiratory distress noted. Pt has a G-tube running Glucerna 1.5 @ 50cc/hr; tolerating well, no residual noted. Brownlee in placed; draining by gravity. Urine is clear and yellow in color. Bed is in the lowest position and locked. Call light and beside table is within reach. No acute distress noted. RT at bedside suctioning pt. Pt is tolerating suction well. Will continue plan of care.
[2020-05-18 20:00] VITALS: BP 141/65
[2020-05-18] MEDS: Dyna-Hex 2% Top Sol 2oz TOPIC SCH (20:26)
[2020-05-18] MEDS: Atorvastatin 20mg tab GT SCH (20:26)
[2020-05-18] MEDS: Enoxaparin 80mg Inj SUBQ SCH (20:30)
--- NOTE | 2020-05-18 22:56 | NUR ---
NURSE NOTES: Pt complained of generalized pain of 7/10 and being uncomfortable. Administered pain med and repositioned pt with multiple pillow support. RT currently at bedside to suction pt.
[2020-05-19] VITALS: BP 139/72
[2020-05-19] MEDS: Vancomycin 1.25gm/250ml Premix IVPB SCH (02:20)
[2020-05-19 04:00] VITALS: BP 152/78
[2020-05-19] MEDS: HYDROcodone/Acetamin 10/325 tab ORAL PRN ×3 (04:02→17:18)
--- NOTE | 2020-05-19 07:00 | NUR ---
RESPIRATORY NOTE: Received pt on T-Piece cool aerosol 60% 10L. Spo2 94%. Will continue to monitor and follow plan of care.
--- NOTE | 2020-05-19 07:18 | NUR ---
NURSE HAND-OFF REPORT: Important Events on Shift: No significant changes during shift manager. Pt is restless and had multiple complaints about being uncomfortable. Repositioned pt every two hours and in between hours as well with multiple pillow support. Pt is tolerating suction and T-piece aerosol therapy well. Patient Status: Stable Diet: Glucerna 1.5 @ 50cc/hr Pending Orders: Placement Pending Results/Labs: AM Labs Pending MD notification: N Latest Vital Signs: Temperature 97.5 , Pulse 95 , B/P 152 /78 , Respiratory Rate 20 , O2 SAT 94 , Mechanical Ventilator, O2 Flow Rate 10.0 . EKG Rhythm: Sinus Rhythm Rhythm change?: N MD Notified?: -YENI Marinelli MD Response: No New Orders Received Latest Hassan Fall Score: 35 Fall Risk: Medium Risk Safety Measures: Call light Within Reach, Bed Alarm Zone 2, Side Rails Side Rails x3, Bed position Low and Locked. Fall Precautions: Yellow Socks Yellow Gown Door Sign Patient Fall Education Report given to PRIYANKA Posey.
[2020-05-19 08:00] VITALS: BP 168/95
--- NOTE | 2020-05-19 08:05 | NUR ---
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 * Inadequate oral intake R/T clinical and respiratory status as evidenced by COVID-19 ++, on continuous BIPAP, prolonged meal refusals, pt is now on TPN, pt orally intubated (03/28), s/p trach placement (04/26), and s/p PEG placement (04/27), now on GT feeds. * Decreased sodium and fat needs r/t HTN and obesity as evidenced by pt w/ cardiac history, elev BP (159/98-> now improved, on BP meds and diuretics), BMI >30, obese per guidelines. (INACTIVE) CURRENT TF:Glucerna 1.5 goal of 50 + Prosource BID ENTERAL NUTRITION RECOMMENDATIONS: Glucerna 1.5 @ 50ml/hr x 24 hrs + Prosource 1pkt BID to provide 1200ml, 1800kcal, 99g +22g prot (121g total prot), 926ml free water * Resume TF as able. * Con't Prosource 1pkt BID (additional 22g prot) to better meet est prot needs. ADDITIONAL RECOMMENDATIONS: 1) RE-calibrate bed scale- extended adm, multiple floor transfers 2) Monitor BGs closely w/ prednisone-> BG up (171, 05/16) 3) Tbili, LFT's up, f/up w/ MD garcia, POC 4) Monitor TF tolerance: PEG placed 04/28, cont to increase TF to goal as tolerated 5) Wound healing: Add Michael BID (mix w/ 2-4oz of water) TF @ goal provides 100% RDI, add Vit C 500mg QD, ZnSO4 220mg [id number]
[2020-05-19] MEDS: Vitamin D 1000 units Tab GT SCH (08:44)
[2020-05-19] MEDS: Ipratropium 0.02% Inh Soln 2.5ml UD HHN PRN ×2 (08:50→15:02)
--- NOTE | 2020-05-19 08:50 | NUR ---
RESPIRATORY NOTE: Pt complaining of SOB. Pt desat to 77%. Increased Fio2 to 98% on cool aerosol. Pt suctioned and lavaged. PRN Atrovent tx was administered. Will continue to closely monitor.
[2020-05-19] MEDS: Enoxaparin 80mg Inj SUBQ SCH ×2 (09:01→20:48)
--- NOTE | 2020-05-19 09:20 | Pulmonology Progress Note ---
Subjective ROS Limited/Unobtainable: No Interval Events: S/p tracheostomy 04/25/20; now on T-piece Constitutional: Reports: fatigue; Denies: fever HEENT: Repors: no symptoms Respiratory: Reports: dry cough - improved, shortness of breath Cardiovascular: Reports: no symptoms Gastrointestinal/Abdominal: Reports: other - less abdominal pain today ; Denies: nausea, vomiting, diarrhea Psychiatric: Denies: depression Skin: Denies: rash Musculoskeletal: Reports: pain - less abdominal pain Allergies: Coded Allergies: No Known Allergies (Unverified , 02/05/20) Objective Last 24 Hour Vital Signs Date Time Temp Pulse Resp B/P (MAP) Pulse Ox O2 Delivery O2 Flow Rate FiO2 05/19/20 08:50 127 24 99 T-Piece 10.0 98 135 28 95 05/19/20 08:45 119 168/95 05/19/20 08:44 119 168/95 05/19/20 08:30 95 Cool Aerosol 10.0 98 05/19/20 07:00 94 Cool Aerosol 10.0 60 05/19/20 04:00 97.5 95 20 152/78 (102) 94 05/19/20 04:00 95 05/19/20 04:00 10.0 60 05/19/20 04:00 T-piece 05/19/20 01:54 97 Cool Aerosol 10.0 60 05/19/20 00:00 T-piece 05/19/20 00:00 82 05/19/20 00:00 97.3 87 20 139/72 (94) 96 05/18/20 20:27 92 141/65 05/18/20 20:00 10.0 60 05/18/20 20:00 91 05/18/20 20:00 97.4 91 19 141/65 (90) 97 05/18/20 20:00 T-piece 05/18/20 19:43 96 Cool Aerosol 10.0 60 05/18/20 17:59 99 149/75 05/18/20 16:00 88 05/18/20 16:00 T-piece 05/18/20 16:00 10.0 60 05/18/20 16:00 96.9 99 20 149/75 (99) 98 05/18/20 13:00 98 Cool Aerosol 10.0 60 05/18/20 12:00 10.0 60 05/18/20 12:00 89 05/18/20 12:00 T-piece 05/18/20 12:00 96.6 89 20 143/81 (101) 98 05/18/20 09:32 103 148/73 05/18/20 09:32 103 148/73 l Intake and Output 05/18/20 05/19/20 19:00 07:00 Intake Total 550 ml Output Total 900 ml 750 ml Balance -350 ml -750 ml Tube Feeding 550 ml Output Urine Total 900 ml 750 ml # Voids 1 # Bowel Movements 1 General Appearance: WD/WN, no acute distress HEENT: normocephalic, atraumatic, status post trach Respiratory: chest wall non-tender Cardiovascular: normal rate, regular rhythm Abdomen: normal bowel sounds, soft, non tender, other - obese Extremities: no edema, other - L arm weakness and swelling without redness Neurologic: alert, oriented x 3, normal mood/affect Microbiology Date/Time Source Procedure Growth Status 05/16/20 20:00 Blood Blood Culture - Preliminary NO GROWTH AFTER 48 HOURS Resulted 05/16/20 19:45 Blood Blood Culture - Preliminary NO GROWTH AFTER 48 HOURS Resulted 05/16/20 10:40 Sputum Gram Stain - Final Resulted 05/16/20 10:40 Sputum Culture - Preliminary YEAST Usual Respiratory Hillary Resulted Current Medications Medications (Trade) Dose Ordered Sig/Dennis Route PRN Reason Start Time Stop Time Status Last Admin Dose Admin Acetaminophen (Tylenol) 650 mg Q4H PRN GT Mild Pain (Pain Scale 1-3) 05/02/20 08:45 06/01/20 08:44 05/08/20 20:28 Acetaminophen/ Hydrocodone Bitart ([place] 10/325) 1 tab Q4H PRN ORAL For Pain 05/16/20 09:45 05/23/20 09:44 05/19/20 08:50 Amlodipine Besylate (Norvasc) 2.5 mg BID GT 05/02/20 18:00 06/02/20 08:59 05/19/20 08:44 Atorvastatin Calcium (Lipitor) 40 mg BEDTIME GT 05/18/20 21:00 08/16/20 20:59 05/18/20 20:26 Barium Sulfate (Varibar Honey) 250 ml NOW PRN MC RAD 05/17/20 10:15 05/20/20 10:13 Barium Sulfate (Varibar [place]) 240 ml NOW PRN RAD 05/17/20 10:15 05/20/20 10:13 Barium Sulfate (Varibar Pudding) 230 ml NOW PRN RAD 05/17/20 10:15 05/20/20 10:13 Barium Sulfate (Varibar Thin Liquid powder) 148 gm NOW PRN RAD 05/17/20 10:15 05/20/20 10:13 Cefepime HCl 2 gm/ Dextrose 100 ml @ 200 mls/hr EVERY 8 HOURS IVPB 05/15/20 22:00 05/22/20 21:59 05/19/20 05:33 Chlorhexidine Gluconate (Marlen-Hex 2%) 1 applic DAILY@2000 TOPIC 03/30/20 20:00 06/28/20 19:59 05/18/20 20:26 Enoxaparin Sodium (Lovenox) 80 mg EVERY 12 HOURS SUBQ 05/18/20 21:00 08/16/20 20:59 05/19/20 09:01 Famotidine (Pepcid) 20 mg Q12HR PRN GT HEARTBURN 05/08/20 13:15 06/01/20 15:14 05/13/20 08:52 Hydralazine HCl (Apresoline) 10 mg Q4H PRN IV For High Blood Pressure 03/30/20 12:15 06/28/20 12:14 05/11/20 14:37 Ipratropium [place] (Atrovent) 500 mcg Q6H PRN HHN Shortness of Breath 05/17/20 09:00 05/22/20 08:59 05/19/20 08:50 Lansoprazole (Prevacid) 30 mg DAILY GT 05/20/20 09:00 06/01/20 08:59 Lorazepam (Ativan) 1 mg Q6H PRN GT For Anxiety 05/17/20 08:59 05/24/20 08:58 05/18/20 17:00 Metoprolol Tartrate (Lopressor) 25 mg Q12HR ORAL 05/17/20 21:00 08/15/20 20:59 05/19/20 08:45 Metronidazole 100 ml @ 100 mls/hr Q8HR IVPB 05/16/20 14:00 05/23/20 13:59 05/19/20 06:05 Ondansetron HCl (Zofran) 4 mg Q6H PRN IVP Nausea & Vomiting 05/16/20 09:45 06/15/20 09:44 05/16/20 10:02 Prednisone (predniSONE) 5 mg DAILY GT 05/13/20 09:00 06/05/20 08:59 05/19/20 08:44 Quetiapine Fumarate (SEROqueL) 50 mg EVERY 8 HOURS GT 05/13/20 14:00 06/11/20 11:59 05/19/20 05:33 Vancomycin HCl 250 ml @ 166.667 mls/hr Q8H IVPB 05/18/20 11:00 05/23/20 10:59 05/19/20 02:20 Vancomycin HCl (Vanco pharmacy to dose) 1 ea DAILY PRN MISC Per rx protocol 05/15/20 18:45 06/14/20 18:44 Vitamin D (Vitamin D) 3,000 unit DAILY GT 05/18/20 09:00 06/17/20 08:59 05/19/20 08:44 Assessment/Plan Assessment/Plan 1.COVID-19 pneumonia. - Completed specific therapies - tapering steroid -> now on prednisone 5 mg QD - s/p bactrim for PJP prophylaxis 2. DVT ppx - Lovenox 3. Hypertension - On Norvasc 4. Leukocytosis; resolved - ID following - Candidemia documented 03/18/20 5. Elevated LFT; still elevated but downtrending - positive Hep C; treated in the past with IF - Abd US, Abd CT don't show evidence of cholecystitis - Lipase/amylase wnl 6. Respiratory failure -Intubated 03/28/20; s/p tracheostomy 04/25/20 -Gradually weaned off sedation IOV 7. Left UE edema and weakness - CT head w/o contrast -> Negative for acute intracranial bleed or mass effect - hx of thrombosis -> full dose Lovenox - seen by neuro - MRI brain per neuro -> however, [place] [facility] -> Neuro recommends outpatient MRI brain 8. Pneumomediastinum - no PTX - now on T-piece 9. New onset vomiting with R sided abd pain - Abd US, abd CT - Zofran prn n/v - Dw surgery; n o indication for surgical intervention at this time 10. Yeast UTI - ID following 11. BCx gram positive rods - ID following Will wean down FiO2 as tolerated CXR shows bilateral interstitial changes? fibrosis? S/p PEG Off IV fluids Dc planning to subacute -> ordered case consultant consult for placement On seroquel 50 mg PO TID; On Ativan and [place] DC pending placement Will contact RATNA Lamar for updates The care of this patient was discussed with my supervising physician Time spent for this encounter was approximately 31 minutes Edilson Marinelli May 19, 2020 09:20
[2020-05-19] MEDS: LORazepam 1mg tab GT PRN ×2 (09:24→16:40)
--- NOTE | 2020-05-19 09:50 | NUR ---
RESPIRATORY NOTE: Pt complaining of SOB. RR in 50s. SPo2 87% on Fio2 98% Cool Aerosol. Placed pt back on ventilator CPAP PS8, +5, 70% fio2. HR 135, SPO2 95%. Pt is still agitated and tachypneic. RN is bedside. Will continue to closely monitor.
[2020-05-19 10:10] LABS: ALANINE AMINOTRANSFERASE 154 U/L (12-78); ALBUMIN 2.9 G/DL (3.4-5.0); ALBUMIN/GLOBULIN RATIO 0.7 (1.0-2.7); ALKALINE PHOSPHATASE 372 U/L (46-116); ANION GAP 7 mmol/L (5-15); ASPARTATE AMINO TRANSFERASE 21 U/L (15-37); BILIRUBIN,TOTAL 0.4 MG/DL (0.2-1.0); BLOOD UREA NITROGEN 14 mg/dL (7-18); CALCIUM 9.3 MG/DL (8.5-10.1); CARBON DIOXIDE 31 MMOL/L (21-32); CHLORIDE 101 MMOL/L (98-107); CREATININE 0.4 MG/DL (0.55-1.30); POTASSIUM 3.9 MMOL/L (3.5-5.1); SODIUM 139 MMOL/L (136-145)
[2020-05-19 10:21] LABS: PHOSPHORUS 3.7 MG/DL (2.5-4.9)
--- NOTE | 2020-05-19 10:39 | NUR ---
0800: Pt endorsing R sided chest pain. Pt also extremely anxious and asking for respiratory. Respiratory notified. YENI Marinelli made aware of pt chest pain. Will administer pain medication as ordered. 0830: respiratory at bedside. Breathing treatment administered. 0930: Pt extremely tachycardic and tachypneic. Ativan administered. Pt states he can't breathe. Respiratory notified. YENI Marinelli at bedside to reevaluate. 1000: Pt placed back on vent. Pt remains anxious. Pt does not want RN or RT to leave bedside. 1030: Pt now calm. Pt remains on vent. Pt endorses decrease in anxiety at this time. Will continue to monitor closely.
[2020-05-19 10:47] LABS: HEMATOCRIT 33.9 % (42.0-52.0); HEMOGLOBIN 10.4 G/DL (14.2-18.0); MEAN CORPUSCULAR VOLUME 91 FL (80-99); PLATELET COUNT 433 K/UL (150-450); RED CELL DISTRIBUTION WIDTH 15.7 % (11.6-14.8); WHITE BLOOD COUNT 12.2 K/UL (4.8-10.8)
--- NOTE | 2020-05-19 11:20 | General Progress Note ---
Subjective ROS Limited/Unobtainable: No Allergies: Coded Allergies: No Known Allergies (Unverified , 02/05/20) Objective Last 24 Hour Vital Signs Date Time Temp Pulse Resp B/P (MAP) Pulse Ox O2 Delivery O2 Flow Rate FiO2 05/19/20 10:15 118 05/19/20 09:50 136 45 70 05/19/20 09:24 138 05/19/20 08:50 127 24 99 T-Piece 10.0 98 135 28 95 05/19/20 08:45 119 168/95 05/19/20 08:44 119 168/95 05/19/20 08:30 95 Cool Aerosol 10.0 98 05/19/20 08:00 10.0 60 05/19/20 08:00 97.1 109 24 168/95 (119) 94 05/19/20 08:00 116 05/19/20 07:00 94 Cool Aerosol 10.0 60 05/19/20 04:00 97.5 95 20 152/78 (102) 94 05/19/20 04:00 95 05/19/20 04:00 10.0 60 05/19/20 04:00 T-piece 05/19/20 01:54 97 Cool Aerosol 10.0 60 05/19/20 00:00 T-piece 05/19/20 00:00 82 05/19/20 00:00 97.3 87 20 139/72 (94) 96 05/18/20 20:27 92 141/65 05/18/20 20:00 10.0 60 05/18/20 20:00 91 05/18/20 20:00 97.4 91 19 141/65 (90) 97 05/18/20 20:00 T-piece 05/18/20 19:43 96 Cool Aerosol 10.0 60 05/18/20 17:59 99 149/75 05/18/20 16:00 88 05/18/20 16:00 T-piece 05/18/20 16:00 10.0 60 05/18/20 16:00 96.9 99 20 149/75 (99) 98 05/18/20 13:00 98 Cool Aerosol 10.0 60 05/18/20 12:00 10.0 60 05/18/20 12:00 89 05/18/20 12:00 T-piece 05/18/20 12:00 96.6 89 20 143/81 (101) 98 Intake and Output 05/18/20 05/19/20 19:00 07:00 Intake Total 550 ml Output Total 900 ml 750 ml Balance -350 ml -750 ml Tube Feeding 550 ml Output Urine Total 900 ml 750 ml # Voids 1 # Bowel Movements 1 Laboratory Tests 05/19/20 08:50: Sodium Level 139, Potassium Level 3.9, Chloride Level 101, Carbon Dioxide Level 31, Anion Gap 7, Blood Urea Nitrogen 14, Creatinine 0.4L, Estimat Glomerular Filtration Rate > 60, Glucose Level 139H, Calcium Level 9.3, Phosphorus Level 3.7, Magnesium Level 2.0, Total Bilirubin 0.4, Aspartate Amino Transf (AST/SGOT) 21, Alanine Aminotransferase (ALT/SGPT) 154H, Alkaline Phosphatase 372H, C- Reactive Protein, Quantitative 5.6H, Total Protein 7.3, Albumin 2.9L, Globulin 4.4, Albumin/Globulin Ratio 0.7L 05/19/20 10:30: White Blood Count 12.2H, Red Blood Count 3.70L, Hemoglobin 10.4L, Hematocrit 33.9L, Mean Corpuscular Volume 91, Mean Corpuscular Hemoglobin 28.0, Mean Corpuscular Hemoglobin Concent 30.6L, Red Cell Distribution Width 15.7H, Platelet Count 433, Mean Platelet Volume 6.7, Neutrophils (%) (Auto) , Lymphocytes (%) (Auto) , Monocytes (%) (Auto) , Eosinophils (%) (Auto) , Basophils (%) (Auto) , Neutrophils % (Manual) [Pending], Lymphocytes % (Manual) [Pending], Platelet Estimate [Pending], Platelet Morphology [Pending], Vancomycin Level Trough 21.1H Height (Feet): 5 Height (Inches): 10.00 Weight (Pounds): 243 General Appearance: no apparent distress EENT: normal ENT inspection Neck: normal alignment Cardiovascular: normal rate Respiratory/Chest: decreased breath sounds Abdomen: normal bowel sounds, non tender, soft Extremities: non-tender Assessment/Plan Status: stable, unchanged Assessment/Plan: abd pain vomiting elevated LFTS GTF abd us>>>reviewed CT>>>reviewed repeat labs fu surg recs Da Quintero MD May 19, 2020 11:20
--- NOTE | 2020-05-19 11:46 | Surgery Progress Note ---
Surgery Progress Note Subjective Procedure Performed tracheostomy Additional Comments states feels much better today fully responsive no n/v/f/c wbc 12k lf'ts improved exam benign back on vent this AM Objective Last 24 Hour Vital Signs Date Time Temp Pulse Resp B/P (MAP) Pulse Ox O2 Delivery O2 Flow Rate FiO2 05/19/20 10:15 118 05/19/20 09:50 136 45 70 05/19/20 09:24 138 05/19/20 08:50 127 24 99 T-Piece 10.0 98 135 28 95 05/19/20 08:45 119 168/95 05/19/20 08:44 119 168/95 05/19/20 08:30 95 Cool Aerosol 10.0 98 05/19/20 08:00 10.0 60 05/19/20 08:00 97.1 109 24 168/95 (119) 94 05/19/20 08:00 116 05/19/20 07:00 94 Cool Aerosol 10.0 60 05/19/20 04:00 97.5 95 20 152/78 (102) 94 05/19/20 04:00 95 05/19/20 04:00 10.0 60 05/19/20 04:00 T-piece 05/19/20 01:54 97 Cool Aerosol 10.0 60 05/19/20 00:00 T-piece 05/19/20 00:00 82 05/19/20 00:00 97.3 87 20 139/72 (94) 96 05/18/20 20:27 92 141/65 05/18/20 20:00 10.0 60 05/18/20 20:00 91 05/18/20 20:00 97.4 91 19 141/65 (90) 97 05/18/20 20:00 T-piece 05/18/20 19:43 96 Cool Aerosol 10.0 60 05/18/20 17:59 99 149/75 05/18/20 16:00 88 05/18/20 16:00 T-piece 05/18/20 16:00 10.0 60 05/18/20 16:00 96.9 99 20 149/75 (99) 98 05/18/20 13:00 98 Cool Aerosol 10.0 60 05/18/20 12:00 10.0 60 05/18/20 12:00 89 05/18/20 12:00 T-piece 05/18/20 12:00 96.6 89 20 143/81 (101) 98 I&O Intake and Output 05/18/20 05/19/20 19:00 07:00 Intake Total 550 ml Output Total 900 ml 750 ml Balance -350 ml -750 ml Tube Feeding 550 ml Output Urine Total 900 ml 750 ml # Voids 1 # Bowel Movements 1 Dressing: dry Wound: clean Cardiovascular: RSR Respiratory: clear Abdomen: soft, non-tender, present bowel sounds, non-distended Extremities: no edema, no tenderness, no cyanosis Laboratory Tests Test 05/19/20 08:50 05/19/20 10:30 Sodium Level 139 MMOL/L (136-145) Potassium Level 3.9 MMOL/L (3.5-5.1) Chloride Level 101 MMOL/L (98-107) Carbon Dioxide Level 31 MMOL/L (21-32) Anion Gap 7 mmol/L (5-15) Blood Urea Nitrogen 14 mg/dL (7-18) Creatinine 0.4 MG/DL (0.55-1.30) L Estimat Glomerular Filtration Rate > 60 mL/min (>60) Glucose Level 139 MG/DL (74-106) H Calcium Level 9.3 MG/DL (8.5-10.1) Phosphorus Level 3.7 MG/DL (2.5-4.9) Magnesium Level 2.0 MG/DL (1.8-2.4) Total Bilirubin 0.4 MG/DL (0.2-1.0) Aspartate Amino Transf (AST/SGOT) 21 U/L (15-37) Alanine Aminotransferase (ALT/SGPT) 154 U/L (12-78) H Alkaline Phosphatase 372 U/L (46-116) H C-Reactive Protein, Quantitative 5.6 mg/dL (0.00-0.90) H Total Protein 7.3 G/DL (6.4-8.2) Albumin 2.9 G/DL (3.4-5.0) L Globulin 4.4 g/dL Albumin/Globulin Ratio 0.7 (1.0-2.7) L White Blood Count 12.2 K/UL (4.8-10.8) H Red Blood Count 3.70 M/UL (4.70-6.10) L Hemoglobin 10.4 G/DL (14.2-18.0) L Hematocrit 33.9 % (42.0-52.0) L Mean Corpuscular Volume 91 FL (80-99) Mean Corpuscular Hemoglobin 28.0 PG (27.0-31.0) Mean Corpuscular Hemoglobin Concent 30.6 G/DL (32.0-36.0) L Red Cell Distribution Width 15.7 % (11.6-14.8) H Platelet Count 433 K/UL (150-450) Mean Platelet Volume 6.7 FL (6.5-10.1) Neutrophils (%) (Auto) % (45.0-75.0) Lymphocytes (%) (Auto) % (20.0-45.0) Monocytes (%) (Auto) % (1.0-10.0) Eosinophils (%) (Auto) % (0.0-3.0) Basophils (%) (Auto) % (0.0-2.0) Differential Total Cells Counted 100 Neutrophils % (Manual) 87 % (45-75) H Lymphocytes % (Manual) 5 % (20-45) L Monocytes % (Manual) 7 % (1-10) Eosinophils % (Manual) 1 % (0-3) Basophils % (Manual) 0 % (0-2) Band Neutrophils 0 % (0-8) Platelet Estimate Adequate Platelet Morphology Normal Polychromasia 1+ Hypochromasia 1+ Anisocytosis 1+ Vancomycin Level Trough 21.1 ug/mL (5.0-12.0) H Plan Problems: (1) Pneumonia (2) Staphylococcus aureus bacteremia (3) COVID-19 virus infection Assessment & Plan: prior now neg improving (4) Chest pain (5) Hypertension (6) Dehydration (7) Electrolyte imbalance (8) DMII (diabetes mellitus, type 2) (9) Protein malnutrition Assessment & Plan: DAILY ESTIMATED NEEDS: Needs based on Critical care, wound 81kg abw 22-28 kcals/kg 6452-1605 total kcals 1.25-2 g protein/kg 101-162 g total protein 25-30 mL/kg 2915-9530 total fluid mLs NUTRITION DIAGNOSIS: * Increased kcal/prot/micronutrients needs R/T wound healing as evidenced by pt w/ new multiple pressure injuries, 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 * Inadequate oral intake R/T clinical and respiratory status as evidenced by COVID-19 ++, on continuous BIPAP, prolonged meal refusals, pt is now on TPN, pt orally intubated (03/28), s/p trach placement (04/26), and s/p PEG placement (04/27), now on GT feeds. * Decreased sodium and fat needs r/t HTN and obesity as evidenced by pt w/ cardiac history, elev BP (159/98-> now improved, on BP meds and diuretics), BMI >30, obese per guidelines. (INACTIVE) CURRENT TF:Glucerna 1.5 goal of 50 + Prosource BID ENTERAL NUTRITION RECOMMENDATIONS: Glucerna 1.5 @ 50ml/hr x 24 hrs + Prosource 1pkt BID to provide 1200ml, 1800kcal, 99g +22g prot (121g total prot), 926ml free water * Maintain current TF order * Con't Prosource 1pkt BID (additional 22g prot) to better meet est prot needs. ADDITIONAL RECOMMENDATIONS: 1) Maintain calibrated bedscale wts 2) Monitor BGs closely w/ Solumedrol (POC glu wnl at this time) 3) Monitor lytes, replete as needed 4) Monitor TF tolerance: PEG placed 04/28, cont to increase TF to goal as tolerated 5) Wound healing: Add Michael BID (mix w/ 2-4oz of water) TF @ goal provides 100% RDI, add Vit C 500mg QD, ZnSO4 220mg [id number] (10) Respiratory insufficiency Assessment & Plan: 64-year-old male with respiratory insufficiency intubated in an intensive care unit. Patient has been unable to safely wean off ventilatory support. Surgery called to evaluate for tracheostomy. After careful evaluation patient is a candidate for tracheostomy. In the meantime will obtain consent. If consent obtained will proceed with scheduling. Thank you for your participation's care will follow recommendations improving trach okay agitated weaning sedation no n/v cont weaning transition to oral meds via g tube get off drips improving downgraded weaning well more alert and awake responsive will need placement trach collar consideration pending sub acute placement okay for placement cont trach care leave sutures in place as dissolvable recovering well fully awake now tolerating diet d/c planning awaiting placement (11) LFT elevation Assessment & Plan: leukocytosis lfts elevated no n/v US ordered trend labs abx US noted labs improved hold anticoag cont tf trend labs pain improved no n/v/f/c labs improved wbc resolved lft's trending down hold on procedure okay to resume anticoag ct head noted neuro input Additional Comments stroke as per neuro. left side deficit Booker Rausch May 19, 2020 11:46
--- NOTE | 2020-05-19 11:47 | NUR ---
RESPIRATORY NOTE: Decreased PS to 5, titrated fio2 to 60%. RN aware. Pt is tolerating well. SpO2 100%. Plan to place pt back on T-Piece CA once pt is more stable. Will continue to monitor.
[2020-05-19 12:00] VITALS: BP 130/75
--- NOTE | 2020-05-19 12:25 | NUR ---
RESPIRATORY NOTE: Placed pt on trach mask cool aerosol 10L 60% fio2. PMV is in place and cuff is deflated. Speech therapist is bedside performing swallow evaluation. RT and RN also bedside. SpO2 96%. Pt is tolerating well. Will continue to closely monitor.
--- NOTE | 2020-05-19 12:48 | Nephrology Progress Note ---
Assessment/Plan Problem List: (1) Dehydration (2) Electrolyte imbalance (3) COVID-19 virus infection (4) Pneumonia (5) DMII (diabetes mellitus, type 2) (6) Protein malnutrition Assessment Azotemia, hypernatremia Hypoalbuminemia Staff Otilia bacteremia COVID-19 isolation, pneumonia, bilateral infiltrate Hypertension Diabetes mellitus History of smoking Plan May 19: Status quo. Labs reviewed. Medication list reviewed. Continue per consultants. Stable from renal standpoint of view. May 18: Patient seen. Low potassium addressed. Labs and medication list reviewed. Clinically improving. Continue per consultants. May 17: Patient seen. Discussed with PRIYANKA Estevez. Patient clinically improved. Liver enzymes and lower. Renal parameters stable. White blood cells within normal limit. Continue per consultants. May 16: Renal parameters stable. Acute elevation in liver function tests White BC with right-sided abdominal pain. Likely acute Karen cystitis. Continue per GI/surgery. Medication list reviewed. Continue to monitor electrolytes and renal parameters. May 15: Labs reviewed. Renal parameters stable. Patient remains full code. Is trached to vent and has PEG. May 14: Labs reviewed. Stable renal parameters. May 13: No labs drawn today. Stable from renal standpoint of view. Continue per consultants. May 12: Labs reviewed. Renal parameters stable. Status quo. Continue per consultants. May 11: No labs drawn today. Will check can panel tomorrow. Medication list reviewed. Patient remains full code. Continue per consultants. May 10: Labs reviewed. Serum sodium higher. Renal parameters and electrolytes stable. Medication list reviewed. Continue per consultants. May 09: Labs reviewed. Serum sodium 135. Continue to monitor electrolytes. Medication list reviewed. Continue per current management. May 08: Labs reviewed. Renal parameters stable. Medication list reviewed. Continue per consultants. May 07: No labs drawn today reviewed. Clinically stable. Medication list reviewed. Will check lab tomorrow. Continue per consultants. May 06: Labs reviewed. Renal parameters stable. Continue per consultants. May 05: Labs reviewed. Renal parameters stable. Patient is due to be transferred to SCU. Continue per consultants. Medication list reviewed. May 04: Labs reviewed. Renal parameters stable. Overall status unchanged. Remains full code. Fed through GT tube. Trach to vent. FiO2 45%. Continue per consultants. May 03: No CHEM panel drawn today. Patient clinically stable. Has trach to vent and PEG. Will check lab tomorrow. May 02: Labs reviewed. Status quo. Patient is trached and vented. Also has PEG. Is full code. Stable from renal standpoint of view. May 01: Labs reviewed. Status quo. Patient has trach connected to vent. Has PEG. He is full code. FiO2 50%. April 30: Status quo. Labs reviewed. Renal parameters stable. Medication list reviewed. April 29: Status quo. Received PEG yesterday. Has trach connected to vent. FiO2 40%. Labs reviewed. Medication list reviewed. Continue same April 28: Status quo. Labs reviewed. Renal parameters stable. Patient n.p.o. due for PEG insertion. IV changed to D5 normal saline. Continue per consultants. April 27: Status quo. Labs reviewed. Medication list reviewed. Stable from renal standpoint of view. Abnormal electrolytes addressed. April 26: Patient is now trached and connected to vent. FiO2 70%. Labs reviewed. Renal parameters stable. Medication list reviewed. Continue per consultants. April 25: Status quo. Full code. FiO2 55%. No labs drawn today. Continue to monitor electrolytes and renal parameters. Continue per consultants. April 24: Status quo. Full code. Intubated on ventilator. FiO2 65%. Labs reviewed. Renal parameters and electrolytes stable. April 23: Status unchanged. Full code. Intubated on ventilator. FiO2 75%. Labs reviewed. Renal parameters stable. Continue per consultants. April 22: Labs reviewed. Patient remains intubated on ventilator and full code. FiO2 90%. Day 77 hospitalization. Not much to add from renal standpoint of view April 21: No CHEM panel drawn today. FiO2 60%. Patient full code. Continue per consultants. April 20: Labs reviewed. Renal parameters stable. Patient remains full code. Intubated on ventilator with FiO2 currently at 70%. Continue per consultants. April 19: No labs drawn today. Remains full code on FiO2 of 100%. Continue per consultants. April 18: Status quo. Labs reviewed. Renal parameters stable. April 17: Status quo. Intubated on ventilator. Full code. Labs reviewed. Electrolytes and renal parameters stable. Continue per consultants. April 16: Girlfriend in the room. Patient awake. Intubated. Full code. Labs reviewed. Abnormal electrolyte addressed. Continue per consultants. April 15: Labs reviewed. Electrolytes and renal parameters stable. Patient full code. Continues to be intubated on ventilator. April 14: Status quo. Labs reviewed. Remains intubated on ventilator. Full code. Continue per consultants. April 13: Status quo. Labs reviewed. Renal parameters electrolytes stable. Continue per current treatment plan. April 12: On higher FiO2. Will resume Lasix daily. Continue to monitor electrolytes and renal parameters. Per consultants. April 11: FiO2 went up to 85%. Renal parameters and electrolytes reasonably well-maintained. Will monitor serum potassium. Will give IV Lasix. April 10: Status quo. Labs reviewed. Remains intubated on ventilator with FiO2 of 65%. Remains full code. Stable from renal standpoint to view. Repeat vitamin D level on April 08 pending April 09: Status quo. Labs reviewed. Stable from renal standpoint of view. Continue per consultants. April 08: Discussed with RN. Labs reviewed. Clinically improving. Requires lower PEEP. Continue per pulmonary. Continue to monitor renal parameters. April 07: Remains full code and on ventilator. Labs reviewed. Renal parameters and electrolytes stable. Continue per consultants. Blood pressure marginally improved. April 06: Full code. On ventilator. Blood pressure 80-90 systolic. IV Lasix discontinued. Free water through tube feeding ordered. Continue to monitor electrolytes and serum sodium. Down on fentanyl as possible. Discussed with PRIYNAKA Brown. Clonidine patch discontinued. April 05: Status quo. Remains full code. Remains intubated. Labs reviewed. Renal parameters stable. Serum sodium 150 unchanged. Continue per consultants. April 04: Remains intubated and on ventilator. Remains full code. Labs reviewed. Serum sodium 150 unchanged. Renal parameters stable. Continue per ID and pulmonary. April 03: Intubated. On ventilator. Full code. Labs reviewed. Serum sodium 150 unchanged. Continue to monitor renal parameters. Continue per pulmonary and ID. April 02: Full code. On ventilator. Discussed with RN. Serum sodium slightly higher. Will cut down on IV Lasix. Continue per consultants. Continue to monitor renal parameters and electrolytes. April 01: Full code. Remains on ventilator. Labs reviewed. Stable from renal standpoint of view. Continue per consultants. March 31: Full code . Remains intubated on ventilator. Labs reviewed. Patient appears toxic. Discussed with RN. Maintenance IV discontinued. Medication list reviewed. Blood pressure medication stopped due to low blood pressure. Levemir insulin stopped. Continue monitor blood sugar and sliding scale insulin. March 30: Full code. On ventilator. Labs reviewed. Clonidine patch dose increased. Lasix increased. 3% saline 1 time ordered. Continue to monitor electrolytes and renal parameters. March 29: Remains full code. On mechanical ventilation. On tube feeding. Will DC TPN. Will start on maintenance IV fluid. Continue to monitor renal parameters. March 28: On BiPAP. Full code. On TPN. Labs reviewed. Discussed with pharmacy. Continue as is. Watch serum potassium. March 27: Remains on BiPAP. No chemistry panel done today. Full code. On TPN. Will check lab tomorrow. March 26: Remains on BiPAP. Remains on TPN. Labs reviewed. Electrolytes and chemistries within normal limits. Continue as is. March 25: Remains on TPN. Labs reviewed. Discussed with pharmacy. Change IV Protonix to p.o. Continue 3% saline infusion with Lasix. Patient full code. March 24: Continue to be on TPN. Labs are reviewed. Aim to collect electrolytes. Discussed with pharmacy. Continue current consultants. March 23: Continues to be on TPN. Labs reviewed. Electrolytes and chemistries all acceptable. Discussed with pharmacy. Continue current management. March 22: On TPN. Labs reviewed. Low sodium noted. 3% saline to be continued. Continue to monitor electrolytes. Discussed with pharmacy. March 21: On TPN. Labs reviewed. Continue 3% saline and Lasix for mild hyp onatremia. Continue TPN as these. Discussed with pharmacy. March 20: Remains on TPN. Labs reviewed. Serum sodium higher on IV Lasix and 3% saline infusion. Continue TPN as is. Continue to monitor renal parameters and electrolytes. Discussed with Dr. Mata March 19: Remains on TPN. Labs reviewed. Serum sodium 128. Will give 3% saline with IV Lasix. Continue to monitor electrolytes. No change in TPN composition. Discussed with pharmacy. March 18: Remains on TPN. Labs reviewed. Discussed with pharmacist. Will give 3 doses of IV Lasix 20 mg every 8 hours. Continue to monitor serum sodium electrolytes uric acid. White blood cells down. Continue per consultants. March 17: On TPN. Labs reviewed. Discussed with pharmacist. Sodium content increase. Continue to monitor CMP. Patient continues to have leukocytosis. March 16: On TPN. Labs reviewed. Discussed with pharmacist. Appropriate changes made. Continue to monitor electrolytes. March 15: Remains on TPN. Labs reviewed. Discussed with pharmacist. Continue per current management. March 14: Remains on TPN. Labs reviewed, stable. Vitamin D level low, replacement ordered. Continue to monitor electrolytes and renal parameters. March 13: Patient remains on TPN. Discussed with pharmacist. TPN's sodium content adjusted. Labs reviewed. Continue to monitor electrolytes. Blood pressure remains stable. Continue per consultants. March 12: Patient on TPN. Labs reviewed. CPK remains elevated. Abnormal electrolytes and high blood sugar discussed with pharmacist and TPN adjusted. Continue to monitor labs. Oral Protonix added. Ibuprofen discontinued. Can continue to monitor electrolytes and chemistries. Levemir for high blood sugar added. March 11: Patient on TPN. Labs as of 11:15 AM is still pending. Continue per current treatment plan. Will check labs and adjust TPN as needed. Continue per consultants. March 10: Patient on TPN. Labs reviewed. Electrolytes overall stable. CPK is elevated. Will monitor electrolyte, CPK level, lipid panel. Continue per consultants. Discussed with pharmacist. Discussed with RN. Nutritional evaluation noted. Previously: D5W 100 cc an hour Monitor electrolytes renal parameters TPN and Intralipid ordered Will follow Continue per consultants Dietary consult requested Subjective ROS Limited/Unobtainable: Yes Objective Objective Last 24 Hour Vital Signs Date Time Temp Pulse Resp B/P (MAP) Pulse Ox O2 Delivery O2 Flow Rate FiO2 05/19/20 11:43 100 34 60 05/19/20 10:15 118 05/19/20 09:50 136 45 70 05/19/20 09:24 138 05/19/20 08:50 127 24 99 T-Piece 10.0 98 135 28 95 05/19/20 08:45 119 168/95 05/19/20 08:44 119 168/95 05/19/20 08:30 95 Cool Aerosol 10.0 98 05/19/20 08:00 10.0 60 05/19/20 08:00 97.1 109 24 168/95 (119) 94 05/19/20 08:00 116 05/19/20 07:00 94 Cool Aerosol 10.0 60 05/19/20 04:00 97.5 95 20 152/78 (102) 94 05/19/20 04:00 95 05/19/20 04:00 10.0 60 05/19/20 04:00 T-piece 05/19/20 01:54 97 Cool Aerosol 10.0 60 05/19/20 00:00 T-piece 05/19/20 00:00 82 05/19/20 00:00 97.3 87 20 139/72 (94) 96 05/18/20 20:27 92 141/65 05/18/20 20:00 10.0 60 05/18/20 20:00 91 05/18/20 20:00 97.4 91 19 141/65 (90) 97 05/18/20 20:00 T-piece 05/18/20 19:43 96 Cool Aerosol 10.0 60 05/18/20 17:59 99 149/75 05/18/20 16:00 88 05/18/20 16:00 T-piece 05/18/20 16:00 10.0 60 05/18/20 16:00 96.9 99 20 149/75 (99) 98 05/18/20 13:00 98 Cool Aerosol 10.0 60 Intake and Output 05/18/20 05/19/20 19:00 07:00 Intake Total 550 ml Output Total 900 ml 750 ml Balance -350 ml -750 ml Tube Feeding 550 ml Output Urine Total 900 ml 750 ml # Voids 1 # Bowel Movements 1 Current Medications Medications (Trade) Dose Ordered Sig/Dennis Route PRN Reason Start Time Stop Time Status Last Admin Dose Admin Acetaminophen (Tylenol) 650 mg Q4H PRN GT Mild Pain (Pain Scale 1-3) 05/02/20 08:45 06/01/20 08:44 05/08/20 20:28 Acetaminophen/ Hydrocodone Bitart ([place] 10/325) 1 tab Q4H PRN ORAL For Pain 05/16/20 09:45 05/23/20 09:44 05/19/20 08:50 Amlodipine Besylate (Norvasc) 2.5 mg BID GT 05/02/20 18:00 06/02/20 08:59 05/19/20 08:44 Atorvastatin Calcium (Lipitor) 40 mg BEDTIME GT 05/18/20 21:00 08/16/20 20:59 05/18/20 20:26 Barium Sulfate (Varibar Honey) 250 ml NOW PRN MC RAD 05/17/20 10:15 05/20/20 10:13 Barium Sulfate (Varibar Okarche) 240 ml NOW PRN MC RAD 05/17/20 10:15 05/20/20 10:13 Barium Sulfate (Varibar Pudding) 230 ml NOW PRN MC RAD 05/17/20 10:15 05/20/20 10:13 Barium Sulfate (Varibar Thin Liquid powder) 148 gm NOW PRN MC RAD 05/17/20 10:15 05/20/20 10:13 Cefepime HCl 2 gm/ Dextrose 100 ml @ 200 mls/hr EVERY 8 HOURS IVPB 05/15/20 22:00 05/22/20 21:59 05/19/20 05:33 Chlorhexidine Gluconate (Marlen-Hex 2%) 1 applic DAILY@1999 TOPIC 03/30/20 20:00 06/28/20 19:59 05/18/20 20:26 Enoxaparin Sodium (Lovenox) 80 mg EVERY 12 HOURS SUBQ 05/18/20 21:00 08/16/20 20:59 05/19/20 09:01 Famotidine (Pepcid) 20 mg Q12HR PRN GT HEARTBURN 05/08/20 13:15 06/01/20 15:14 05/13/20 08:52 Hydralazine HCl (Apresoline) 10 mg Q4H PRN IV For High Blood Pressure 03/30/20 12:15 06/28/20 12:14 05/11/20 14:37 Ipratropium Willard (Atrovent) 500 mcg Q6H PRN HHN Shortness of Breath 05/17/20 09:00 05/22/20 08:59 05/19/20 08:50 Lansoprazole (Prevacid) 30 mg DAILY GT 05/20/20 09:00 06/01/20 08:59 Lorazepam (Ativan) 1 mg Q6H PRN GT For Anxiety 05/17/20 08:59 05/24/20 08:58 05/19/20 09:24 Metoprolol Tartrate (Lopressor) 25 mg Q12HR ORAL 05/17/20 21:00 08/15/20 20:59 05/19/20 08:45 Metronidazole 100 ml @ 100 mls/hr Q8HR IVPB 05/16/20 14:00 05/23/20 13:59 05/19/20 06:05 Ondansetron HCl (Zofran) 4 mg Q6H PRN IVP Nausea & Vomiting 05/16/20 09:45 06/15/20 09:44 05/16/20 10:02 Prednisone (predniSONE) 5 mg DAILY GT 05/13/20 09:00 06/05/20 08:59 05/19/20 08:44 Quetiapine Fumarate (SEROqueL) 50 mg EVERY 8 HOURS GT 05/13/20 14:00 06/11/20 11:59 05/19/20 05:33 Vancomycin HCl (Vanco pharmacy to dose) 1 ea DAILY PRN MISC Per rx protocol 05/15/20 18:45 06/14/20 18:44 Vancomycin HCl 1 gm/Dextrose 275 ml @ 183.708 mls/hr Q8HR IVPB 05/19/20 14:00 05/24/20 13:59 Vitamin D (Vitamin D) 3,000 unit DAILY GT 05/18/20 09:00 06/17/20 08:59 05/19/20 08:44 Laboratory Tests 05/19/20 08:50: Sodium Level 139, Potassium Level 3.9, Chloride Level 101, Carbon Dioxide Level 31, Anion Gap 7, Blood Urea Nitrogen 14, Creatinine 0.4L, Estimat Glomerular Filtration Rate > 60, Glucose Level 139H, Calcium Level 9.3, Phosphorus Level 3.7, Magnesium Level 2.0, Total Bilirubin 0.4, Aspartate Amino Transf (AST/SGOT) 21, Alanine Aminotransferase (ALT/SGPT) 154H, Alkaline Phosphatase 372H, C- Reactive Protein, Quantitative 5.6H, Total Protein 7.3, Albumin 2.9L, Globulin 4.4, Albumin/Globulin Ratio 0.7L 05/19/20 10:30: White Blood Count 12.2H, Red Blood Count 3.70L, Hemoglobin 10.4L, Hematocrit 33.9L, Mean Corpuscular Volume 91, Mean Corpuscular Hemoglobin 28.0, Mean Corpuscular Hemoglobin Concent 30.6L, Red Cell Distribution Width 15.7H, Platelet Count 433, Mean Platelet Volume 6.7, Neutrophils (%) (Auto) , Lymphocytes (%) (Auto) , Monocytes (%) (Auto) , Eosinophils (%) (Auto) , Basophils (%) (Auto) , Differential Total Cells Counted 100, Neutrophils % (Manual) 87H, Lymphocytes % (Manual) 5L, Monocytes % (Manual) 7, Eosinophils % (Manual) 1, Basophils % (Manual) 0, Band Neutrophils 0, Platelet Estimate Adequate, Platelet Morphology Normal, Polychromasia 1+, Hypochromasia 1+, Anisocytosis 1+, Vancomycin Level Trough 21.1H Height (Feet): 5 Height (Inches): 10.00 Weight (Pounds): 243 General Appearance: no apparent distress Cardiovascular: tachycardia Respiratory/Chest: decreased breath sounds Abdomen: distended Rubin Cooper MD May 19, 2020 12:48
--- NOTE | 2020-05-19 13:02 | NUR ---
Speech Pathology Note PMSV and Swallow Evaluation on 05/17/2020 Therapeutic day 2 LFT coming down, no indication of cholecystostomy tube per nursring staff S: PMSV was placed on trach mask. The Fio2 was on 60%. SPo2 96~97%. HR is 105. Pt is comfortable breathing with PMSV. Pt is slightly anxious. He can be relaxed with people around him. O: 1. Pt was given apple sauce first: Pt was able to cohesively managed bolus orally and able to elicit the pharyngeal swallow. He was able to tolerate without overt s.s of aspiration. 2. Pt was given jello: He was able to tolerate well without s.s of aspiration. 3. Pt was given a sip of water: Pt exhibited delayed dried cough and stated that "It tickling my throat." Pt did not exhibit any s.s of tracheal aspiration During this trials, he was able to tolerate [place] Speaking Valve at all time. He was able to maintain SPO2 96~97% and HR was 102~105. Pt was encouraged to keep on [place] speaking Valve to mobile his secretion and enhance oxygenation. A 1. Adequate oropharyngeal motility and swallow 2. Adequate aerodynamic to use PMSV (Cuff mast be deflated) 3. Normal laryngeal integrity P 1. PO diet with full liquid diet (Please keep [place] thick consistency) -PO when he is off mechanical vent -keep cuff trach cuff deflated when he is off vent -PMSV during off vent with Trach mask Dannielle Bonds
--- NOTE | 2020-05-19 13:05 | Neurology Progress Note ---
Interim History Interim History ROS Limited/Unobtainable: Yes Events: pt reting in bed no acute distress Objective Physical Exam Last Vital Signs Date Time Temp Pulse Resp B/P (MAP) Pulse Ox O2 Delivery O2 Flow Rate FiO2 05/19/20 11:43 100 34 60 05/19/20 08:50 99 T-Piece 10.0 95 05/19/20 08:45 168/95 05/19/20 08:00 97.1 Laboratory Tests Test 05/19/20 08:50 05/19/20 10:30 Sodium Level 139 MMOL/L (136-145) Potassium Level 3.9 MMOL/L (3.5-5.1) Chloride Level 101 MMOL/L (98-107) Carbon Dioxide Level 31 MMOL/L (21-32) Anion Gap 7 mmol/L (5-15) Blood Urea Nitrogen 14 mg/dL (7-18) Creatinine 0.4 MG/DL (0.55-1.30) L Estimat Glomerular Filtration Rate > 60 mL/min (>60) Glucose Level 139 MG/DL (74-106) H Calcium Level 9.3 MG/DL (8.5-10.1) Phosphorus Level 3.7 MG/DL (2.5-4.9) Magnesium Level 2.0 MG/DL (1.8-2.4) Total Bilirubin 0.4 MG/DL (0.2-1.0) Aspartate Amino Transf (AST/SGOT) 21 U/L (15-37) Alanine Aminotransferase (ALT/SGPT) 154 U/L (12-78) H Alkaline Phosphatase 372 U/L (46-116) H C-Reactive Protein, Quantitative 5.6 mg/dL (0.00-0.90) H Total Protein 7.3 G/DL (6.4-8.2) Albumin 2.9 G/DL (3.4-5.0) L Globulin 4.4 g/dL Albumin/Globulin Ratio 0.7 (1.0-2.7) L White Blood Count 12.2 K/UL (4.8-10.8) H Red Blood Count 3.70 M/UL (4.70-6.10) L Hemoglobin 10.4 G/DL (14.2-18.0) L Hematocrit 33.9 % (42.0-52.0) L Mean Corpuscular Volume 91 FL (80-99) Mean Corpuscular Hemoglobin 28.0 PG (27.0-31.0) Mean Corpuscular Hemoglobin Concent 30.6 G/DL (32.0-36.0) L Red Cell Distribution Width 15.7 % (11.6-14.8) H Platelet Count 433 K/UL (150-450) Mean Platelet Volume 6.7 FL (6.5-10.1) Neutrophils (%) (Auto) % (45.0-75.0) Lymphocytes (%) (Auto) % (20.0-45.0) Monocytes (%) (Auto) % (1.0-10.0) Eosinophils (%) (Auto) % (0.0-3.0) Basophils (%) (Auto) % (0.0-2.0) Differential Total Cells Counted 100 Neutrophils % (Manual) 87 % (45-75) H Lymphocytes % (Manual) 5 % (20-45) L Monocytes % (Manual) 7 % (1-10) Eosinophils % (Manual) 1 % (0-3) Basophils % (Manual) 0 % (0-2) Band Neutrophils 0 % (0-8) Platelet Estimate Adequate Platelet Morphology Normal Polychromasia 1+ Hypochromasia 1+ Anisocytosis 1+ Vancomycin Level Trough 21.1 ug/mL (5.0-12.0) H Neurologic Exam Objective PHYSICAL EXAMINATION: General: Pt is awake oriented and has insight to situation. Neuro: resting in bed watching television,Awake,alert oriented x4 language p arameters intact, Comprehension intact PERRLA, No nystagmus with gaze. No facial droop tongue is midline. Hearing intact. No involuntary movement, bedbound gait not tested. Right upper extremity 3/5, left upper extremity unable to move, raise and squeeze my hand bilateral lower extremities 1/5. Impression/Recommendations Status: stable, unchanged Diagnostic Impression LABORATORY DATA: Reviewed. IMAGING CT Head: Negative for acute intracranial bleed or mass effect Mild frontal cortical volume loss Cervical soft tissue emphysema, also reported on recent chest radiograph 05/17: Repeat CT HEAD: Very questionable slightly more prominent right frontal deep white matter low-attenuation, if real could represent an evolving lacunar infarct rather than just routine deep white matter ischemic change. If clinically indicated, MRI may be useful to clarify Otherwise unchanged noncontrast findings, since 05/15/2020, with mild age-related volume loss and periventricular deep white matter ischemic change. No unusual contrast enhancing lesion demonstrated. Assessment and Rec's: 1. Possible Evolving Right Lacunar Stroke which could be contributing to his Left Upper Extremity weakness --> CT head Very questionable slightly more prominent right frontal deep white matter low-attenuation, if real could represent an evolving lacunar infarct rather than just routine deep white matter ischemic change. If clinically indicated, MRI may be useful- at this time MRI cannot be done here Would recommend as an outpatient. --> LUE edema, unable to raise arm --> CT Head imaging reviewed as above --> Continue PT/OT and possible ARU as he is a strong candidate have d/w primary care team. 2. Covid 19 Disease, complicated --> s/p treatment. 3. 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 Smoker. 4. PNA Covid 19 Thank you for allowing us to participate in patient's care, Plan of care was reviewed with Dr. Manoj Lopez and he agrees with plan of care. Nina Zafar NP May 19, 2020 13:05
--- NOTE | 2020-05-19 13:51 | NUR ---
1100: PT working with patient. Pt tolerating with no issue. 1300: Speech therapy worked with pt. Pt tolerated applesauce and jello. Pt was able to take sips of water. Pt with PMV. Pt O2 saturation at 97%. Pt in NAD. Will continue to monitor.
[2020-05-19] MEDS ORDERED: Vancomycin 1gm/D5W 275ml IVPB SCH ×2 (14:00)
--- NOTE | 2020-05-19 15:08 | NUR ---
LEAD INJECTION MOLD TECHNICIAN NOTES PT ACCEPTED AT [facility]. BED WILL BE AVAILABLE ON FRIDAY. MADE AWARE.
--- NOTE | 2020-05-19 15:45 | NUR ---
RESPIRATORY NOTE: Placed pt back on vent CPAP PS 5, +5, 60% fio2 per pt request due to increased WOB and SOB. RN aware. Will continue to monitor.
[2020-05-19 15:53] VITALS: BP 164/91
--- NOTE | 2020-05-19 16:27 | NUR ---
NURSE NOTES: I was informed by medical service technician patient refuse MRI,FREIGHT HUSTLER Nina Zafar notified
--- NOTE | 2020-05-19 16:59 | Infectious Diseases Prog Note ---
Assessment/Plan Assessment/Plan ASSESSMENT AND PLAN: 1. hx staph aureus bacteremia/mssa - s/p tx covid-19 +, hypoxia, sob, chest x-ray worse, ? PE, ? HCAP/aspiration pna trach/vent, joseph pneumomediastinum/subcutaneous emphysema, ? new hcap/aspiration pna e.coli uti, urine yeast likely a colonizer, sepsis, leukocytosis possible cholecystitis, abdominal pain, elevated lft's, abdominal CT and US noted 1/4 diphtheroids blood culture likely contaminant, f/u blood cultures ordered - cefepime, flagyl - day # 5, discontinue vancomycin - sputum culture with yeast - likely colonizer, surveillance blood cultures negative - monitor labs and chest x-ray - surgery f/u and work-up - pulmonary f/u 2. covid-19 isolation removed - covid-19 recovered 3. Hypertension history. Blood pressure treatment primary care team. 4. Elevated blood sugars. Blood sugar treatment per primary care team. 5. No known drug allergies. 6. Social history is positive for smoking. 7. Family history is noncontributory. 8. MAR was noted. 9. Case was discussed with RN. 10. Continue treatment per primary consultants. Subjective Constitutional: Reports: other - + vent, fio2-60 %; Denies: fever HEENT: Reports: congestion Respiratory: Reports: shortness of breath Cardiovascular: Denies: chest pain Gastrointestinal/Abdominal: Denies: nausea, vomiting, diarrhea Neurologic: Denies: headache Psychiatric: Reports: other - NA Skin: Denies: rash Hematologic: Denies: bleeding Musculoskeletal: Denies: pain Allergies: Coded Allergies: No Known Allergies (Unverified , 02/05/20) Objective Last 24 Hour Vital Signs Date Time Temp Pulse Resp B/P (MAP) Pulse Ox O2 Delivery O2 Flow Rate FiO2 05/19/20 16:40 116 05/19/20 16:00 122 05/19/20 15:53 97.3 109 23 164/91 (115) 98 05/19/20 15:45 126 40 60 05/19/20 15:13 116 22 100 T-Piece 10.0 98 127 26 98 05/19/20 13:00 98 Cool Aerosol 10.0 60 05/19/20 12:25 10.0 60 05/19/20 12:00 60 05/19/20 12:00 98.7 92 19 130/75 (93) 97 05/19/20 12:00 T-piece 05/19/20 12:00 95 05/19/20 11:43 100 34 60 05/19/20 10:15 118 05/19/20 09:50 70 05/19/20 09:50 136 45 70 05/19/20 09:24 138 05/19/20 08:50 127 24 99 T-Piece 10.0 98 135 28 95 05/19/20 08:45 119 168/95 05/19/20 08:44 119 168/95 05/19/20 08:30 95 Cool Aerosol 10.0 98 05/19/20 08:00 10.0 60 05/19/20 08:00 T-piece 05/19/20 08:00 97.1 109 24 168/95 (119) 94 05/19/20 08:00 116 05/19/20 07:00 94 Cool Aerosol 10.0 60 05/19/20 04:00 97.5 95 20 152/78 (102) 94 05/19/20 04:00 95 05/19/20 04:00 10.0 60 05/19/20 04:00 T-piece 05/19/20 01:54 97 Cool Aerosol 10.0 60 05/19/20 00:00 T-piece 05/19/20 00:00 82 05/19/20 00:00 97.3 87 20 139/72 (94) 96 05/18/20 20:27 92 141/65 05/18/20 20:00 10.0 60 05/18/20 20:00 91 05/18/20 20:00 97.4 91 19 141/65 (90) 97 05/18/20 20:00 T-piece 05/18/20 19:43 96 Cool Aerosol 10.0 60 05/18/20 17:59 99 149/75 Height (Feet): 5 Height (Inches): 10.00 Weight (Pounds): 243 General Appearance: no acute distress, other - + trach and vent, sedated/sleeping HEENT: normocephalic, atraumatic, anicteric Respiratory/Chest: decreased breath sounds, crackles/rales, rhonchi - bilaterally Cardiovascular: normal rate, regular rhythm, no gallop/murmur Abdomen: normal bowel sounds, soft, non tender, no organomegaly, non distended Genitourinary: other - joseph Extremities: no cyanosis Skin: no rash 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 Note nonvisualization of the left hepatic lobe, spleen, pancreas, abdominal aorta Gallbladder sludge. Negative for biliary ductal dilatation Unremarkable kidneys Liver demonstrates diffusely increased echogenicity, consistent with diffuse hepatocellular disease, most likely fatty change. CT chest: IMPRESSION: There are mild subpleural ground-glass and consolidating infiltrates in the dependent portions of both lower lobes and to lesser degree the upper lobes consistent with bilateral pneumonia. The infiltrates are typical for Covid 19. No evidence of pulmonary embolus. CT abdomen and pelvis: IMPRESSION: 1. Scattered hepatic hypodense lesions, too small to characterize on this examination without intravenous contrast. 2. Colonic diverticulosis without evidence of acute diverticulitis. 3. Scattered enlarged mesenteric lymph nodes, presumably reactive. teral pneumonia. The infiltrates are typical for Covid 19. No evidence of pulmonary embolus. Chest x-ray - 12/19/19 - Indication: Shortness of breath Technique: One view of the chest Comparison: 02/17/2020 Findings: Interim worsening of bilateral infiltrates, particularly on the right. The heart is borderline enlarged. The pleural spaces are clear. Left arm PICC is again demonstrated Impression: Worsening bilateral infiltrates over one day, likely pneumonia CT chest - 02/19/20 - IMPRESSION: Increased extensive patchy ground-glass opacities and densities throughout the lungs, suggestive of Covid 19 infection. Chest x-ray 02/23/20 - Procedure: XRAY Chest 1v As Indication: Reason For Exam: INFECT Technique: One view of the chest Comparison: 02/20/2020 Findings: Allowing for differences in exposure technique, bilateral mid and l ower lung infiltrates are probably unchanged. The heart size is normal. The pleural spaces are clear. Impression: Unchanged, over 4 days, findings as above. Chest x-ray - 02/25/20 - FINDINGS: Lungs: Interval slightly worsening bilateral airspace disease. Pleural space: Unremarkable. No pneumothorax. Heart: Unremarkable. No cardiomegaly. Mediastinum: Unremarkable. Bones/joints: Unremarkable. IMPRESSION: Interval slightly worsening bilateral airspace disease. Chest x-ray - 03/02/20 - Procedure: XRAY Chest 1v Indication: Shortness of breath Technique: One view of the chest Comparison: 02/25/2020 Findings: Bilateral interstitial and airspace infiltrates are unchanged. The heart size is normal. Left arm PICC is again demonstrated Impression: Unchanged, over one day, findings as above. Chest x-ray - 03/06/20 - Procedure: XRAY Chest 1v Indication: Shortness of breath Technique: One view of the chest Comparison: 03/02/2020 Findings: Bilateral infiltrates are unchanged. Normal heart size. Pleural spaces are clear Chest x-ray - 03/12/10 - Impression: COMPARISON: Chest radiograph March 06, 2020. FINDINGS/IMPRESSION: Improving basilar infiltrates. Follow chest radiograph recommended. The upper lung finley are clear. No pneumothorax. Stable cardiomegaly. Stable left upper extremity PICC line. anged, over 4 days, findings as above. Chest x-ray - 03/17/20 - Procedure: XRAY Chest 1v Indication: Shortness of breath Technique: One view of the chest Comparison: 03/12/2020 Findings: Left arm PICC is again demonstrated. Infiltrates are unchanged. The heart size is upper limits of normal. Impression: Unchanged, over 5 days, findings as above. Abdominal US - IMPRESSION: 1. Gallbladder is normal. 2. Hepatic steatosis. 3. 1.7 cm cyst right kidney. Impression. Chest x-ray - Procedure: XRAY Chest 1v Indication: Shortness of breath Technique: One view of the chest Comparison: 03/17/2020 Findings: Bilateral right greater than left infiltrates again demonstrated. The heart size is normal. There is a left arm PICC in good position. Impression: Unchanged, over 5 days, findings as above. Chest x-ray - 03/29/20 - Procedure: XRAY Chest 1v Indication: Cough Technique: One view of the chest Comparison: 03/28/2020 Findings: Bilateral infiltrates are unchanged or slightly worse, allowing for differences in exposure technique. The pleural spaces are clear. The heart size is normal. Stable satisfactory position of endotracheal tube, left arm PICC. Orogastric tube has retracted somewhat the position remains satisfactory. Impression: Stable to slightly worse bilateral infiltrates. 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 Interim advancement of orogastric tube as well. Bilateral infiltrates are unchanged. Left arm PICC remains Impression: Improved and now satisfactory tube positions as described. ICU nurse Maeve notified at the time of interpretation Chest x-ray - 04/02/20 - COMPARISON: Chest x-rays dated 03/31/20 and 03/12/20. FINDINGS: Lungs: No significant change in bilateral prominent interstitial markings. The lungs are otherwise clear without focal consolidation. Pleural space: Unremarkable. The costophrenic angles are sharp. No visible pneumothorax. Heart: Unremarkable. No cardiomegaly. Mediastinum: Unremarkable. Bones/joints: Unremarkable. Tubes, lines and devices: Endotracheal tube tip 6.5 cm above the sunny. NG tube tip in the distal stomach. Telemetry leads overlie the thorax. IMPRESSION: No significant change in bilateral prominent interstitial markings. Procedure: XRAY Chest 1v Procedure: XRAY Chest 1v Reason for study: Shortness of breath 04/06/20 - Comparison films: 04/02/2020. FINDINGS: Endotracheal tube and NG tube remain in place. There is worsening of right basil ar infiltrates. Some haziness in left lung base unchanged. Cardiac and mediastinal silhouette are within normal limits. CP angles are sharp. The bony thorax appear unremarkable. IMPRESSION: Worsening of right basilar infiltrate. Chest x-ray - 04/09/20 - Procedure: XRAY Chest 1v FILM CXR 1 VIEW INDICATION: Infection COMPARISON: April 05, 2020 FINDINGS: Single frontal view demonstrates a normal cardiomediastinal silhouette. Endotracheal tube in place with tip above the sunny. Elevation of the right hemidiaphragm. Interstitial prominence with bilateral lower lobe infiltrates. Lung bases appear worse from the prior exam. Small right effusion. Right-sided PICC line with tip in the superior vena cava. Enteric tube in place. IMPRESSION: Interstitial prominence and bilateral lower lobe pneumonia with worsening appearance from the prior study. Chest x-ray - 04/12/20 - Procedure: XRAY Chest 1v Indication: Shortness of breath Technique: One view of the chest Comparison: 04/09/2020 Findings: Stable satisfactory tube and line positions. Bilateral infiltrates have worsened slightly since prior study. The heart size is normal. Impression: Worsening bilateral infiltrates, over 3 days Chest x-ray - 04/15/20 - COMPARISON: 02/11/21. FINDINGS: Lungs: There is been no significant change in mild to moderate patchy diffuse bilateral alveolar infiltrates which are most prominent in the lung bases. Pleural space: Unremarkable. No pneumothorax. Heart: Unremarkable. No cardiomegaly. Mediastinum: Unremarkable. Bones/joints: Unremarkable. Tubes, lines and devices: There is an endotracheal tube, right-sided PICC line and NG tube in good position. IMPRESSION: There is been no significant change in mild to moderate patchy diffuse bilateral alveolar infiltrates which are most prominent in the lung bases. Chest x-ray - 04/18/20 - Procedure: XRAY Chest 1v Indication: Cough Technique: One view of the chest Comparison: 04/15/2020 Findings: Less optimal inspiration currently than previously. Stable satisfactory positions of endotracheal and orogastric tubes and right arm PICC. Bilateral infiltrates are again demonstrated, unchanged. Impression: Unchanged, over 3 days, findings as above. Chest x-ray - 04/21/20 - Procedure: XRAY Chest 1v Indication: Dyspnea Technique: One view of the chest Comparison: 04/18/2020 Findings: Stable tube and line positions. Bilateral infiltrates are unchanged Impression: Unchanged, over one day, findings as above. Procedure: XRAY Chest 1v Procedure: XRAY Chest 1v Reason for study: Reason For Exam: SOB Chest x-ray - 04/25/20 - Comparison films: 04/21/2020. FINDINGS: Endotracheal tube, NG tube and right PICC line remain in place. Vascularity is normal. Bilateral infiltrates are unchanged. Cardiac and mediastinal silhouette are within normal limits. CP angles are sharp. The bony thorax appear unremarkable. IMPRESSION: NO SIGNIFICANT CHANGE COMPARED TO PREVIOUS EXAM. Chest x-rasy - 04/30/20 - FINDINGS: Lungs: Bilateral patchy pulmonary opacities concerning for pneumonia, not significantly changed compared to the prior chest x-ray. Pleural space: Unremarkable. The costophrenic angles are sharp. No visible pneumothorax. Heart: Unremarkable. No cardiomegaly. Mediastinum: Unremarkable. Bones/joints: Unremarkable. Tubes, lines and devices: Tracheostomy tube in place, with expected positioning. Telemetry leads overlie the thorax. Right arm PICC with catheter tip in the SVC region. IMPRESSION: Bilateral patchy pulmonary opacities concerning for pneumonia, not significantly changed compared to the prior chest x-ray. Chest x-ray - 05/12/20 - Procedure: XRAY Chest 1v Procedure: XRAY Chest 1v Reason for study: Shortness of breath. Comparison films: 04/30/2020. FINDINGS: Tracheostomy and right PICC line remain in place. There is new pneumomediastinum as well as subcutaneous cutaneous emphysema noted in the right supraclavicular region. Slight increase in diffuse bilateral alveolar densities likely worsening infiltrates and/or edema. Cardiac and mediastinal silhouette are within normal limits. CP angles are sharp. The bony thorax appear unremarkable. IMPRESSION: Slight worsening of bilateral basilar densities, infiltrates and/or edema. New pneumomediastinum and subcutaneous cutaneous air in the right supraclavicular region. Chest x-rasy - 05/14/20 - Procedure: XRAY Chest 1v EXAM: XR Chest, 1 View CLINICAL HISTORY: INFECT TECHNIQUE: Frontal view of the chest. COMPARISON: 05/12/20 FINDINGS: Since the prior examination, there is marked increase in pneumomediastinum as well as soft tissue gas to the chest wall and supraclavicular regions, right greater than left. Redemonstrated appropriately positioned tracheostomy. Tip of right arm PICC is in the SVC. No clear pneumothorax given limitations due to overlying chest wall gas. Extensive bilateral interstitial and airspace infiltrates appear similar to the prior examination, but suspect slight progression in the left upper lobe. IMPRESSION: Increasing pneumomediastinum and chest wall gas. Extensive bilateral pulmonary infiltrates, progressed in the left upper lobe. CT abdomen an pelvis: Impression: Distended gallbladder. Somewhat dense material within the bladder lumen probably represents sludge. However, the possibility that this represents blood should also be considered given the relatively high attenuation. There is also biliary ductal dilatation, without definite downstream obstructive lesion. MRCP may be useful for better characterization Right renal lesion, demonstrating soft tissue attenuation. Possibly a hemorrhagic cyst given cystic appearance on prior study. However, the possibly of solid neoplasm should also be considered. Extensive bilateral basilar pulmonary parenchymal opacification likely related to ongoing pneumonia Small amount of free intraperitoneal fluid Subcutaneous emphysema and pneumomediastinum, also reported on prior chest radiograph Clinical history diverticulosis Gastrostomy Hepatic and left renal cysts Joseph catheter Findings discussed by phone with Dr. Rausch at the time of interpretation Abdominal US: Impression: Very limited exam as described. Note nonvisualization of the left hepatic lobe, spleen, pancreas, abdominal aorta Gallbladder sludge. Negative for biliary ductal dilatation Unremarkable kidneys Liver demonstrates diffusely increased echogenicity, consistent with diffuse hepatocellular disease, most likely fatty change. Chest x-ray - 05/17/20 - Procedure: XRAY Chest 1v Indication: Shortness of breath Technique: One view of the chest Comparison: 05/17/2020 Findings: Subcutaneous emphysema and cervical emphysema appears slightly improved. Pneumomediastinum persists. Bilateral infiltrates are probably unchanged, allowing for lower lung volumes on the current exam. Tracheostomy, right arm PICC are again demonstrated. The heart size is normal. Impression: Slightly decreased subcutaneous emphysema. 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 Microbiology Date/Time Source Procedure Growth Status 05/16/20 20:00 Blood Blood Culture - Preliminary NO GROWTH AFTER 48 HOURS Resulted 05/16/20 10:40 Sputum Gram Stain - Final Resulted 05/16/20 10:40 Sputum Culture - Preliminary YEAST Usual Respiratory Hillary Resulted 05/14/20 07:00 Urine,Clean Catch Urine Culture - Final Escherichia Coli Kat Parapsilosis Complete 04/14/20 16:35 Stool Clostridium difficile Toxin Assay - Final Complete Microbiology Date/Time Source Procedure Growth Status 05/16/20 20:00 Blood Blood Culture - Preliminary NO GROWTH AFTER 48 HOURS Resulted 05/16/20 19:45 Blood Blood Culture - Preliminary NO GROWTH AFTER 48 HOURS Resulted Laboratory Tests Test 05/19/20 08:50 05/19/20 10:30 Sodium Level 139 MMOL/L (136-145) Potassium Level 3.9 MMOL/L (3.5-5.1) Chloride Level 101 MMOL/L (98-107) Carbon Dioxide Level 31 MMOL/L (21-32) Anion Gap 7 mmol/L (5-15) Blood Urea Nitrogen 14 mg/dL (7-18) Creatinine 0.4 MG/DL (0.55-1.30) L Estimat Glomerular Filtration Rate > 60 mL/min (>60) Glucose Level 139 MG/DL (74-106) H Calcium Level 9.3 MG/DL (8.5-10.1) Phosphorus Level 3.7 MG/DL (2.5-4.9) Magnesium Level 2.0 MG/DL (1.8-2.4) Total Bilirubin 0.4 MG/DL (0.2-1.0) Aspartate Amino Transf (AST/SGOT) 21 U/L (15-37) Alanine Aminotransferase (ALT/SGPT) 154 U/L (12-78) H Alkaline Phosphatase 372 U/L (46-116) H C-Reactive Protein, Quantitative 5.6 mg/dL (0.00-0.90) H Total Protein 7.3 G/DL (6.4-8.2) Albumin 2.9 G/DL (3.4-5.0) L Globulin 4.4 g/dL Albumin/Globulin Ratio 0.7 (1.0-2.7) L White Blood Count 12.2 K/UL (4.8-10.8) H Red Blood Count 3.70 M/UL (4.70-6.10) L Hemoglobin 10.4 G/DL (14.2-18.0) L Hematocrit 33.9 % (42.0-52.0) L Mean Corpuscular Volume 91 FL (80-99) Mean Corpuscular Hemoglobin 28.0 PG (27.0-31.0) Mean Corpuscular Hemoglobin Concent 30.6 G/DL (32.0-36.0) L Red Cell Distribution Width 15.7 % (11.6-14.8) H Platelet Count 433 K/UL (150-450) Mean Platelet Volume 6.7 FL (6.5-10.1) Neutrophils (%) (Auto) % (45.0-75.0) Lymphocytes (%) (Auto) % (20.0-45.0) Monocytes (%) (Auto) % (1.0-10.0) Eosinophils (%) (Auto) % (0.0-3.0) Basophils (%) (Auto) % (0.0-2.0) Differential Total Cells Counted 100 Neutrophils % (Manual) 87 % (45-75) H Lymphocytes % (Manual) 5 % (20-45) L Monocytes % (Manual) 7 % (1-10) Eosinophils % (Manual) 1 % (0-3) Basophils % (Manual) 0 % (0-2) Band Neutrophils 0 % (0-8) Platelet Estimate Adequate Platelet Morphology Normal Polychromasia 1+ Hypochromasia 1+ Anisocytosis 1+ Vancomycin Level Trough 21.1 ug/mL (5.0-12.0) H Current Medications Medications (Trade) Dose Ordered Sig/Dennis Route PRN Reason Start Time Stop Time Status Last Admin Dose Admin Acetaminophen (Tylenol) 650 mg Q4H PRN GT Mild Pain (Pain Scale 1-3) 05/02/20 08:45 06/01/20 08:44 05/08/20 20:28 Acetaminophen/ Hydrocodone Bitart ([place] 10/325) 1 tab Q4H PRN ORAL For Pain 05/16/20 09:45 05/23/20 09:44 05/19/20 08:50 Amlodipine Besylate (Norvasc) 2.5 mg BID GT 05/02/20 18:00 06/02/20 08:59 05/19/20 08:44 Atorvastatin Calcium (Lipitor) 40 mg BEDTIME GT 05/18/20 21:00 08/16/20 20:59 05/18/20 20:26 Barium Sulfate (Varibar Honey) 250 ml NOW PRN MC RAD 05/17/20 10:15 05/20/20 10:13 Barium Sulfate (Varibar [place]) 240 ml NOW PRN MC RAD 05/17/20 10:15 05/20/20 10:13 Barium Sulfate (Varibar Pudding) 230 ml NOW PRN MC RAD 05/17/20 10:15 05/20/20 10:13 Barium Sulfate (Varibar Thin Liquid powder) 148 gm NOW PRN MC RAD 05/17/20 10:15 05/20/20 10:13 Cefepime HCl 2 gm/ Dextrose 100 ml @ 200 mls/hr EVERY 8 HOURS IVPB 05/15/20 22:00 05/22/20 21:59 05/19/20 14:19 Chlorhexidine Gluconate (Marlen-Hex 2%) 1 applic DAILY@2000 TOPIC 03/30/20 20:00 06/28/20 19:59 05/18/20 20:26 Enoxaparin Sodium (Lovenox) 80 mg EVERY 12 HOURS SUBQ 05/18/20 21:00 08/16/20 20:59 05/19/20 09:01 Famotidine (Pepcid) 20 mg Q12HR PRN GT HEARTBURN 05/08/20 13:15 06/01/20 15:14 05/13/20 08:52 Hydralazine HCl (Apresoline) 10 mg Q4H PRN IV For High Blood Pressure 03/30/20 12:15 06/28/20 12:14 05/11/20 14:37 Ipratropium [place] (Atrovent) 500 mcg Q6H PRN HHN Shortness of Breath 05/17/20 09:00 05/22/20 08:59 05/19/20 15:02 Lansoprazole (Prevacid) 30 mg DAILY GT 05/20/20 09:00 06/01/20 08:59 Lorazepam (Ativan) 1 mg Q6H PRN GT For Anxiety 05/17/20 08:59 05/24/20 08:58 05/19/20 16:40 Metoprolol Tartrate (Lopressor) 25 mg Q12HR ORAL 05/17/20 21:00 08/15/20 20:59 05/19/20 08:45 Metronidazole 100 ml @ 100 mls/hr Q8HR IVPB 05/16/20 14:00 05/23/20 13:59 05/19/20 14:19 Ondansetron HCl (Zofran) 4 mg Q6H PRN IVP Nausea & Vomiting 05/16/20 09:45 06/15/20 09:44 05/16/20 10:02 Prednisone (predniSONE) 5 mg DAILY GT 05/13/20 09:00 06/05/20 08:59 05/19/20 08:44 Quetiapine Fumarate (SEROqueL) 50 mg EVERY 8 HOURS GT 05/13/20 14:00 06/11/20 11:59 05/19/20 14:18 Vitamin D (Vitamin D) 3,000 unit DAILY GT 05/18/20 09:00 06/17/20 08:59 05/19/20 08:44 Kisha Salazar MD May 19, 2020 16:59
--- NOTE | 2020-05-19 18:46 | Cardiology Progress Note ---
Assessment/Plan Assessment/Plan Acute covid 19 pneumonia hypoxemia infiltrate bilat bacteremia hypernatremia / hyponatremia mild abn lfts tachy post intubation fever fungemia dvt upper ext right sided abd pain back on the vent after being off for few days abd pain c/w cholecystitis improved sx s/p trach / peg afebrile now hypoxemia unlikely cardiac related back on full dose anticoag due to dvt ue cr is stable d/w rn imani for bp lasix tonite labs in amd and cxr fuly awake off vent to be transferred to [facility]ili[facility] no plans for surgery Subjective Cardiovascular: Denies: chest pain, lightheadedness Respiratory: Denies: shortness of breath Gastrointestinal/Abdominal: Denies: abdominal pain Genitourinary: Denies: burning Objective Last 24 Hour Vital Signs Date Time Temp Pulse Resp B/P (MAP) Pulse Ox O2 Delivery O2 Flow Rate FiO2 05/19/20 17:50 106 164/91 05/19/20 17:34 101 30 60 05/19/20 16:40 116 05/19/20 16:00 60 05/19/20 16:00 122 05/19/20 15:53 97.3 109 23 164/91 (115) 98 05/19/20 15:45 126 40 60 05/19/20 15:13 116 22 100 T-Piece 10.0 98 127 26 98 05/19/20 13:00 98 Cool Aerosol 10.0 60 05/19/20 12:25 10.0 60 05/19/20 12:00 60 05/19/20 12:00 98.7 92 19 130/75 (93) 97 05/19/20 12:00 T-piece 05/19/20 12:00 95 05/19/20 11:43 100 34 60 05/19/20 10:15 118 05/19/20 09:50 70 05/19/20 09:50 136 45 70 05/19/20 09:24 138 05/19/20 08:50 127 24 99 T-Piece 10.0 98 135 28 95 05/19/20 08:45 119 168/95 05/19/20 08:44 119 168/95 05/19/20 08:30 95 Cool Aerosol 10.0 98 05/19/20 08:00 10.0 60 05/19/20 08:00 T-piece 05/19/20 08:00 97.1 109 24 168/95 (119) 94 05/19/20 08:00 116 05/19/20 07:00 94 Cool Aerosol 10.0 60 05/19/20 04:00 97.5 95 20 152/78 (102) 94 05/19/20 04:00 95 05/19/20 04:00 10.0 60 05/19/20 04:00 T-piece 05/19/20 01:54 97 Cool Aerosol 10.0 60 05/19/20 00:00 T-piece 05/19/20 00:00 82 05/19/20 00:00 97.3 87 20 139/72 (94) 96 05/18/20 20:27 92 141/65 05/18/20 20:00 10.0 60 05/18/20 20:00 91 05/18/20 20:00 97.4 91 19 141/65 (90) 97 05/18/20 20:00 T-piece 05/18/20 19:43 96 Cool Aerosol 10.0 60 Intake and Output 05/18/20 05/19/20 19:00 07:00 Intake Total 550 ml Output Total 900 ml 750 ml Balance -350 ml -750 ml Tube Feeding 550 ml Output Urine Total 900 ml 750 ml # Voids 1 # Bowel Movements 1 Laboratory Tests Test 05/19/20 08:50 05/19/20 10:30 Sodium Level 139 MMOL/L (136-145) Potassium Level 3.9 MMOL/L (3.5-5.1) Chloride Level 101 MMOL/L (98-107) Carbon Dioxide Level 31 MMOL/L (21-32) Anion Gap 7 mmol/L (5-15) Blood Urea Nitrogen 14 mg/dL (7-18) Creatinine 0.4 MG/DL (0.55-1.30) L Estimat Glomerular Filtration Rate > 60 mL/min (>60) Glucose Level 139 MG/DL (74-106) H Calcium Level 9.3 MG/DL (8.5-10.1) Phosphorus Level 3.7 MG/DL (2.5-4.9) Magnesium Level 2.0 MG/DL (1.8-2.4) Total Bilirubin 0.4 MG/DL (0.2-1.0) Aspartate Amino Transf (AST/SGOT) 21 U/L (15-37) Alanine Aminotransferase (ALT/SGPT) 154 U/L (12-78) H Alkaline Phosphatase 372 U/L (46-116) H C-Reactive Protein, Quantitative 5.6 mg/dL (0.00-0.90) H Total Protein 7.3 G/DL (6.4-8.2) Albumin 2.9 G/DL (3.4-5.0) L Globulin 4.4 g/dL Albumin/Globulin Ratio 0.7 (1.0-2.7) L White Blood Count 12.2 K/UL (4.8-10.8) H Red Blood Count 3.70 M/UL (4.70-6.10) L Hemoglobin 10.4 G/DL (14.2-18.0) L Hematocrit 33.9 % (42.0-52.0) L Mean Corpuscular Volume 91 FL (80-99) Mean Corpuscular Hemoglobin 28.0 PG (27.0-31.0) Mean Corpuscular Hemoglobin Concent 30.6 G/DL (32.0-36.0) L Red Cell Distribution Width 15.7 % (11.6-14.8) H Platelet Count 433 K/UL (150-450) Mean Platelet Volume 6.7 FL (6.5-10.1) Neutrophils (%) (Auto) % (45.0-75.0) Lymphocytes (%) (Auto) % (20.0-45.0) Monocytes (%) (Auto) % (1.0-10.0) Eosinophils (%) (Auto) % (0.0-3.0) Basophils (%) (Auto) % (0.0-2.0) Differential Total Cells Counted 100 Neutrophils % (Manual) 87 % (45-75) H Lymphocytes % (Manual) 5 % (20-45) L Monocytes % (Manual) 7 % (1-10) Eosinophils % (Manual) 1 % (0-3) Basophils % (Manual) 0 % (0-2) Band Neutrophils 0 % (0-8) Platelet Estimate Adequate Platelet Morphology Normal Polychromasia 1+ Hypochromasia 1+ Anisocytosis 1+ Vancomycin Level Trough 21.1 ug/mL (5.0-12.0) H Microbiology Date/Time Source Procedure Growth Status 05/16/20 20:00 Blood Blood Culture - Preliminary NO GROWTH AFTER 48 HOURS Resulted 05/16/20 19:45 Blood Blood Culture - Preliminary NO GROWTH AFTER 48 HOURS Resulted Objective pt seen persoanlly Manan Awan MD May 19, 2020 18:46
--- NOTE | 2020-05-19 19:25 | NUR ---
1630: Pt had to be placed back on vent as pt was stating he was short of breathe and felt like he could not catch his breath. Pt also refused to go to MRI. Charge, RN notified neurology PROVIDER SERVICE REPRESENTATIVE. 173: Pt had BM. Pt was given Ativan prior to repositioning as pt felt anxious. Pt tolerated changing positions well. Pt endorsing abdominal pain. Rhodhiss administered. 1924: Pt was resting in NAD. Report given to My, RN. All questions answered. Care continues.
--- NOTE | 2020-05-19 19:27 | NUR ---
NURSE NOTES: Received pt and report from PRIYANKA Posey. Observed pt resting in bed with both eyes closed; arousable to voice. Pt is A/Ox4; able to make needs known by mouthing and writing on paper with a pen. Pt is on cardiac monitoring; NSR (92 bpm). ALBERT PICC line in placed; intact, asymptomatic, and patent. Pt is on a vent CPAP PS 5, +5, 60% FiO2; tolerating well. No SOB noted. Pt is on G-tube feeding; running Glucerna 1.5 @50cc/hr.; tolerating well, no residual noted. Aspiration precaution noted; HOB at 30 degrees and suction at bedside. Pt is on DAVIS mattress. Bed is in the lowest position and locked. Call light and bedside table is within reach. No signs/symptoms of acute distress noted. Will continue plan of care.
[2020-05-19 20:00] VITALS: BP 128/80
[2020-05-19] MEDS: Dyna-Hex 2% Top Sol 2oz TOPIC SCH (20:44)
[2020-05-19] MEDS: Atorvastatin 20mg tab GT SCH (20:48)
[2020-05-20] VITALS: BP 154/92
[2020-05-20] MEDS: HYDROcodone/Acetamin 10/325 tab ORAL PRN ×3 (00:09→21:54)
--- NOTE | 2020-05-20 02:16 | NUR ---
NURSE NOTES: Observed pt awake in bed and watching television. No SOB or acute distress noted. Pt tolerating vent well. Pt asked to fix head pillow and to straighten out legs. Both completed. Bilateral heels elevated on pillows.
[2020-05-20 04:00] VITALS: BP 151/91
--- NOTE | 2020-05-20 07:13 | NUR ---
NURSE NOTES: Received report from PRIYANKA [place]. Pt in bed asleep, but arousable to name. IV in right upper arm with PICC 2 lumen, patent and asymptomatic. Call light within reach. Bed in lowest position and locked. Side railsx3 up for safety. Trach shiely 8 connected to vent with setting of CPAP, PS 5, peep of 5, FIo2 40%. Tolerating well with evidence of O2 Sat 98%. F/C patent and intact. Will continue plan of care.
--- NOTE | 2020-05-20 07:17 | NUR ---
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 Pt continues to be on CPAP vent PS 5, +5, 60% FiO2; tolerating well. No SOB observed. Pt had one soft BM. Pt is currently resting in bed, no distress noted. Patient Status: Stable Diet: Glucerna 1.5 Pending Orders: CXR Pending Results/Labs: AM Labs Pending MD notification: N Latest Vital Signs: Temperature 97.9 , Pulse 107 , B/P 151 /91 , Respiratory Rate 36 , O2 SAT 98 , Mechanical Ventilator, O2 Flow Rate 10.0 . EKG Rhythm: Sinus Rhythm Rhythm change?: N Latest Hassan Fall Score: 35 Fall Risk: Medium Risk Safety Measures: Call light Within Reach, Bed Alarm Zone 2, Side Rails Side Rails x3, Bed position Low and Locked. Fall Precautions: Yellow Socks Yellow Gown Door Sign Patient Fall Education Report given to PRIYANKA Lawson.
--- NOTE | 2020-05-20 07:34 | General Progress Note ---
Subjective ROS Limited/Unobtainable: No Allergies: Coded Allergies: No Known Allergies (Unverified , 02/05/20) Objective Last 24 Hour Vital Signs Date Time Temp Pulse Resp B/P (MAP) Pulse Ox O2 Delivery O2 Flow Rate FiO2 05/20/20 06:55 91 21 40 05/20/20 06:55 98 Mechanical Ventilator 40 05/20/20 05:30 107 36 40 05/20/20 04:00 97.9 94 22 151/91 (111) 100 05/20/20 04:00 60 05/20/20 04:00 Mechanical Ventilator 05/20/20 04:00 93 05/20/20 03:24 92 34 60 05/20/20 01:00 Mechanical Ventilator 60 05/20/20 01:00 93 37 60 05/20/20 00:00 60 05/20/20 00:00 96.8 96 22 154/92 (112) 100 05/20/20 00:00 97 05/20/20 00:00 Mechanical Ventilator 05/19/20 23:30 90 40 60 05/19/20 21:00 92 31 60 05/19/20 20:49 88 128/80 05/19/20 20:00 97.0 86 20 128/80 (96) 100 05/19/20 20:00 90 05/19/20 20:00 60 05/19/20 20:00 Mechanical Ventilator 05/19/20 19:30 100 Mechanical Ventilator 60 05/19/20 19:30 97 30 60 05/19/20 17:50 106 164/91 05/19/20 17:34 101 30 60 05/19/20 16:40 116 05/19/20 16:00 60 05/19/20 16:00 Mechanical Ventilator 05/19/20 16:00 122 05/19/20 15:53 97.3 109 23 164/91 (115) 98 05/19/20 15:45 126 40 60 05/19/20 15:13 116 22 100 T-Piece 10.0 98 127 26 98 05/19/20 13:00 98 Cool Aerosol 10.0 60 05/19/20 12:25 10.0 60 05/19/20 12:00 60 05/19/20 12:00 98.7 92 19 130/75 (93) 97 05/19/20 12:00 T-piece 05/19/20 12:00 95 05/19/20 11:43 100 34 60 05/19/20 10:15 118 05/19/20 09:50 70 05/19/20 09:50 136 45 70 05/19/20 09:24 138 05/19/20 08:50 127 24 99 T-Piece 10.0 98 135 28 95 05/19/20 08:45 119 168/95 05/19/20 08:44 119 168/95 05/19/20 08:30 95 Cool Aerosol 10.0 98 05/19/20 08:00 10.0 60 05/19/20 08:00 T-piece 05/19/20 08:00 97.1 109 24 168/95 (119) 94 05/19/20 08:00 116 Intake and Output 05/19/20 05/20/20 19:00 07:00 Intake Total 700 ml 800 ml Output Total 1800 ml 2200 ml Balance -1100 ml -1400 ml Free Water 100 ml 200 ml Tube Feeding 600 ml 600 ml Output Urine Total 1800 ml 2200 ml # Bowel Movements 1 3 Laboratory Tests 05/19/20 08:50: Sodium Level 139, Potassium Level 3.9, Chloride Level 101, Carbon Dioxide Level 31, Anion Gap 7, Blood Urea Nitrogen 14, Creatinine 0.4L, Estimat Glomerular Filtration Rate > 60, Glucose Level 139H, Calcium Level 9.3, Phosphorus Level 3.7, Magnesium Level 2.0, Total Bilirubin 0.4, Aspartate Amino Transf (AST/SGOT) 21, Alanine Aminotransferase (ALT/SGPT) 154H, Alkaline Phosphatase 372H, C- Reactive Protein, Quantitative 5.6H, Total Protein 7.3, Albumin 2.9L, Globulin 4.4, Albumin/Globulin Ratio 0.7L 05/19/20 10:30: White Blood Count 12.2H, Red Blood Count 3.70L, Hemoglobin 10.4L, Hematocrit 33.9L, Mean Corpuscular Volume 91, Mean Corpuscular Hemoglobin 28.0, Mean Corpuscular Hemoglobin Concent 30.6L, Red Cell Distribution Width 15.7H, Platelet Count 433, Mean Platelet Volume 6.7, Neutrophils (%) (Auto) , Lymphocytes (%) (Auto) , Monocytes (%) (Auto) , Eosinophils (%) (Auto) , Basophils (%) (Auto) , Differential Total Cells Counted 100, Neutrophils % (Ma nual) 87H, Lymphocytes % (Manual) 5L, Monocytes % (Manual) 7, Eosinophils % (Manual) 1, Basophils % (Manual) 0, Band Neutrophils 0, Platelet Estimate Adequate, Platelet Morphology Normal, Polychromasia 1+, Hypochromasia 1+, A nisocytosis 1+, Vancomycin Level Trough 21.1H Height (Feet): 5 Height (Inches): 10.00 Weight (Pounds): 243 General Appearance: no apparent distress EENT: normal ENT inspection Neck: supple Cardiovascular: normal rate Respiratory/Chest: decreased breath sounds Abdomen: normal bowel sounds, non tender, soft Extremities: non-tender Assessment/Plan Status: stable, unchanged Assessment/Plan: no event over night GTF abd us>>>reviewed CT>>>reviewed repeat labs fu surg recs Da Quintero MD May 20, 2020 07:34
[2020-05-20 08:00] VITALS: BP 148/78
--- NOTE | 2020-05-20 08:05 | NUR ---
RESPIRATORY NOTE: Pt is awake, alert and follows commands. Attempted to place pt on T-pieced 40% 10L but pt didn't tolerated, HR went up to 120bpm, RR>45bpm, labor breathing. Placed pt back on vent with settings CPAP PS 5 40%FiO2, peep 5. Pt is calming down, still tachypneic RR 34-36bpm, HR 102bpm. RN Min aware. Alarms are set and audible, vent is plugged into the red outlet, ambu bag and spare trach kit are at bedside. Will monitor pt closely throughout the shift.
[2020-05-20] MEDS: Vitamin D 1000 units Tab GT SCH (08:25)
[2020-05-20] MEDS: Lansoprazole 15mg cap GT SCH (08:25)
[2020-05-20] MEDS: Enoxaparin 80mg Inj SUBQ SCH ×2 (08:27→20:19)
[2020-05-20 08:30] LABS: BASOPHILS % (AUTO) 1.3 % (0.0-2.0); EOSINOPHILS % (AUTO) 2.9 % (0.0-3.0); HEMATOCRIT 28.5 % (42.0-52.0); HEMOGLOBIN 9.2 G/DL (14.2-18.0); LYMPHOCYTES % (AUTO) 11.5 % (20.0-45.0); MEAN CORPUSCULAR VOLUME 89 FL (80-99); MONOCYTES % (AUTO) 8.5 % (1.0-10.0); NEUTROPHILS % (AUTO) 75.9 % (45.0-75.0); PLATELET COUNT 366 K/UL (150-450); RED BLOOD COUNT 3.19 M/UL (4.70-6.10); RED CELL DISTRIBUTION WIDTH 15.1 % (11.6-14.8); WHITE BLOOD COUNT 8.7 K/UL (4.8-10.8)
[2020-05-20 09:30] LABS: ANION GAP 4 mmol/L (5-15); BLOOD UREA NITROGEN 16 mg/dL (7-18); CALCIUM 8.7 MG/DL (8.5-10.1); CARBON DIOXIDE 34 MMOL/L (21-32); CHLORIDE 101 MMOL/L (98-107); CREATININE 0.3 MG/DL (0.55-1.30); POTASSIUM 3.9 MMOL/L (3.5-5.1); SODIUM 139 MMOL/L (136-145)
--- NOTE | 2020-05-20 09:47 | Nephrology Progress Note ---
Assessment/Plan Problem List: (1) Dehydration (2) Electrolyte imbalance (3) COVID-19 virus infection (4) Pneumonia (5) DMII (diabetes mellitus, type 2) (6) Protein malnutrition Assessment Azotemia, hypernatremia Hypoalbuminemia Staff Otilia bacteremia COVID-19 isolation, pneumonia, bilateral infiltrate Hypertension Diabetes mellitus History of smoking Plan May 20: Status quo. Full code. Trach to vent. Feeding through GT. Labs reviewed. Medication list reviewed. Abnormal electrolyte addressed. Discussed with RN. May 19: Status quo. Labs reviewed. Medication list reviewed. Continue per consultants. Stable from renal standpoint of view. May 18: Patient seen. Low potassium addressed. Labs and medication list reviewed. Clinically improving. Continue per consultants. May 17: Patient seen. Discussed with PRIYANKA Estevez. Patient clinically improved. Liver enzymes and lower. Renal parameters stable. White blood cells within normal limit. Continue per consultants. May 16: Renal parameters stable. Acute elevation in liver function tests White BC with right-sided abdominal pain. Likely acute Karen cystitis. Continue per GI/surgery. Medication list reviewed. Continue to monitor electrolytes and renal parameters. May 15: Labs reviewed. Renal parameters stable. Patient remains full code. Is trached to vent and has PEG. May 14: Labs reviewed. Stable renal parameters. May 13: No labs drawn today. Stable from renal standpoint of view. Continue per consultants. May 12: Labs reviewed. Renal parameters stable. Status quo. Continue per consultants. May 11: No labs drawn today. Will check can panel tomorrow. Medication list reviewed. Patient remains full code. Continue per consultants. May 10: Labs reviewed. Serum sodium higher. Renal parameters and electrolytes stable. Medication list reviewed. Continue per consultants. May 09: Labs reviewed. Serum sodium 135. Continue to monitor electrolytes. Medication list reviewed. Continue per current management. May 08: Labs reviewed. Renal parameters stable. Medication list reviewed. Continue per consultants. May 07: No labs drawn today reviewed. Clinically stable. Medication list reviewed. Will check lab tomorrow. Continue per consultants. May 06: Labs reviewed. Renal parameters stable. Continue per consultants. May 05: Labs reviewed. Renal parameters stable. Patient is due to be transferred to SCU. Continue per consultants. Medication list reviewed. May 04: Labs reviewed. Renal parameters stable. Overall status unchanged. Remains full code. Fed through GT tube. Trach to vent. FiO2 45%. Continue per consultants. May 03: No CHEM panel drawn today. Patient clinically stable. Has trach to vent and PEG. Will check lab tomorrow. May 02: Labs reviewed. Status quo. Patient is trached and vented. Also has PEG. Is full code. Stable from renal standpoint of view. May 01: Labs reviewed. Status quo. Patient has trach connected to vent. Has PEG. He is full code. FiO2 50%. April 30: Status quo. Labs reviewed. Renal parameters stable. Medication list reviewed. April 29: Status quo. Received PEG yesterday. Has trach connected to vent. FiO2 40%. Labs reviewed. Medication list reviewed. Continue same April 28: Status quo. Labs reviewed. Renal parameters stable. Patient n.p.o. due for PEG insertion. IV changed to D5 normal saline. Continue per consultants. April 27: Status quo. Labs reviewed. Medication list reviewed. Stable from renal standpoint of view. Abnormal electrolytes addressed. April 26: Patient is now trached and connected to vent. FiO2 70%. Labs reviewed. Renal parameters stable. Medication list reviewed. Continue per consultants. April 25: Status quo. Full code. FiO2 55%. No labs drawn today. Continue to monitor electrolytes and renal parameters. Continue per consultants. April 24: Status quo. Full code. Intubated on ventilator. FiO2 65%. Labs reviewed. Renal parameters and electrolytes stable. April 23: Status unchanged. Full code. Intubated on ventilator. FiO2 75%. Labs reviewed. Renal parameters stable. Continue per consultants. April 22: Labs reviewed. Patient remains intubated on ventilator and full code. FiO2 90%. Day 77 hospitalization. Not much to add from renal standpoint of view April 21: No CHEM panel drawn today. FiO2 60%. Patient full code. Continue per consultants. April 20: Labs reviewed. Renal parameters stable. Patient remains full code. Intubated on ventilator with FiO2 currently at 70%. Continue per consultants. April 19: No labs drawn today. Remains full code on FiO2 of 100%. Continue per consultants. April 18: Status quo. Labs reviewed. Renal parameters stable. April 17: Status quo. Intubated on ventilator. Full code. Labs reviewed. Electrolytes and renal parameters stable. Continue per consultants. April 16: Girlfriend in the room. Patient awake. Intubated. Full code. Labs reviewed. Abnormal electrolyte addressed. Continue per consultants. April 15: Labs reviewed. Electrolytes and renal parameters stable. Patient full code. Continues to be intubated on ventilator. April 14: Status quo. Labs reviewed. Remains intubated on ventilator. Full code. Continue per consultants. April 13: Status quo. Labs reviewed. Renal parameters electrolytes stable. Continue per current treatment plan. April 12: On higher FiO2. Will resume Lasix daily. Continue to monitor electrolytes and renal parameters. Per consultants. April 11: FiO2 went up to 85%. Renal parameters and electrolytes reasonably well-maintained. Will monitor serum potassium. Will give IV Lasix. April 10: Status quo. Labs reviewed. Remains intubated on ventilator with FiO2 of 65%. Remains full code. Stable from renal standpoint to view. Repeat vitamin D level on April 08 pending April 09: Status quo. Labs reviewed. Stable from renal standpoint of view. Continue per consultants. April 08: Discussed with RN. Labs reviewed. Clinically improving. Requires lower PEEP. Continue per pulmonary. Continue to monitor renal parameters. April 07: Remains full code and on ventilator. Labs reviewed. Renal parameters and electrolytes stable. Continue per consultants. Blood pressure marginally improved. April 06: Full code. On ventilator. Blood pressure 80-90 systolic. IV Lasix discontinued. Free water through tube feeding ordered. Continue to monitor electrolytes and serum sodium. Down on fentanyl as possible. Discussed with PRIYANKA Brown. Clonidine patch discontinued. April 05: Status quo. Remains full code. Remains intubated. Labs reviewed. Renal parameters stable. Serum sodium 150 unchanged. Continue per consultants. April 04: Remains intubated and on ventilator. Remains full code. Labs reviewed. Serum sodium 150 unchanged. Renal parameters stable. Continue per ID and pulmonary. April 03: Intubated. On ventilator. Full code. Labs reviewed. Serum sodium 150 unchanged. Continue to monitor renal parameters. Continue per pulmonary and ID. April 02: Full code. On ventilator. Discussed with RN. Serum sodium slightly higher. Will cut down on IV Lasix. Continue per consultants. Continue to monitor renal parameters and electrolytes. April 01: Full code. Remains on ventilator. Labs reviewed. Stable from renal standpoint of view. Continue per consultants. March 31: Full code . Remains intubated on ventilator. Labs reviewed. Patient appears toxic. Discussed with RN. Maintenance IV discontinued. Medication list reviewed. Blood pressure medication stopped due to low blood pressure. Levemir insulin stopped. Continue monitor blood sugar and sliding scale insulin. March 30: Full code. On ventilator. Labs reviewed. Clonidine patch dose increased. Lasix increased. 3% saline 1 time ordered. Continue to monitor electrolytes and renal parameters. March 29: Remains full code. On mechanical ventilation. On tube feeding. Will DC TPN. Will start on maintenance IV fluid. Continue to monitor renal parameters. March 28: On BiPAP. Full code. On TPN. Labs reviewed. Discussed with pharmacy. Continue as is. Watch serum potassium. March 27: Remains on BiPAP. No chemistry panel done today. Full code. On TPN. Will check lab tomorrow. March 26: Remains on BiPAP. Remains on TPN. Labs reviewed. Electrolytes and chemistries within normal limits. Continue as is. March 25: Remains on TPN. Labs reviewed. Discussed with pharmacy. Change IV Protonix to p.o. Continue 3% saline infusion with Lasix. Patient full code. March 24: Continue to be on TPN. Labs are reviewed. Aim to collect electrolytes. Discussed with pharmacy. Continue current consultants. March 23: Continues to be on TPN. Labs reviewed. Electrolytes and chemistries all acceptable. Discussed with pharmacy. Continue current management. March 22: On TPN. Labs reviewed. Low sodium noted. 3% saline to be continued. Continue to monitor electrolytes. Discussed with pharmacy. March 21: On TPN. Labs reviewed. Continue 3% saline and Lasix for mild hyponatremia. Continue TPN as these. Discussed with pharmacy. March 20: Remains on TPN. Labs reviewed. Serum sodium higher on IV Lasix and 3% saline infusion. Continue TPN as is. Continue to monitor renal parameters and electrolytes. Discussed with Dr. Mata March 19: Remains on TPN. Labs reviewed. Serum sodium 128. Will give 3% s florentino with IV Lasix. Continue to monitor electrolytes. No change in TPN composition. Discussed with pharmacy. March 18: Remains on TPN. Labs reviewed. Discussed with pharmacist. Will give 3 doses of IV Lasix 20 mg every 8 hours. Continue to monitor serum sodium electrolytes uric acid. White blood cells down. Continue per consultants. March 17: On TPN. Labs reviewed. Discussed with pharmacist. Sodium content increase. Continue to monitor CMP. Patient continues to have leukocytosis. March 16: On TPN. Labs reviewed. Discussed with pharmacist. Appropriate changes made. Continue to monitor electrolytes. March 15: Remains on TPN. Labs reviewed. Discussed with pharmacist. Continue per current management. March 14: Remains on TPN. Labs reviewed, stable. Vitamin D level low, replacement ordered. Continue to monitor electrolytes and renal parameters. March 13: Patient remains on TPN. Discussed with pharmacist. TPN's sodium content adjusted. Labs reviewed. Continue to monitor electrolytes. Blood pressure remains stable. Continue per consultants. March 12: Patient on TPN. Labs reviewed. CPK remains elevated. Abnormal electrolytes and high blood sugar discussed with pharmacist and TPN adjusted. Continue to monitor labs. Oral Protonix added. Ibuprofen discontinued. Can continue to monitor electrolytes and chemistries. Levemir for high blood sugar added. March 11: Patient on TPN. Labs as of 11:15 AM is still pending. Continue per current treatment plan. Will check labs and adjust TPN as needed. Continue per consultants. March 10: Patient on TPN. Labs reviewed. Electrolytes overall stable. CPK is elevated. Will monitor electrolyte, CPK level, lipid panel. Continue per consultants. Discussed with pharmacist. Discussed with RN. Nutritional evaluation noted. Previously: D5W 100 cc an hour Monitor electrolytes renal parameters TPN and Intralipid ordered Will follow Continue per consultants Dietary consult requested Subjective ROS Limited/Unobtainable: Yes Objective Objective Last 24 Hour Vital Signs Date Time Temp Pulse Resp B/P (MAP) Pulse Ox O2 Delivery O2 Flow Rate FiO2 05/20/20 08:25 102 148/78 05/20/20 08:25 102 148/78 05/20/20 08:05 102 34 40 05/20/20 08:00 Mechanical Ventilator 05/20/20 08:00 40 05/20/20 08:00 103 05/20/20 08:00 97.7 99 22 148/78 (101) 98 05/20/20 07:50 10.0 40 05/20/20 07:00 40 05/20/20 06:55 91 21 40 05/20/20 06:55 98 Mechanical Ventilator 40 3/20/21 05:30 107 36 40 05/20/20 04:00 97.9 94 22 151/91 (111) 100 05/20/20 04:00 60 05/20/20 04:00 Mechanical Ventilator 05/20/20 04:00 93 05/20/20 03:24 92 34 60 05/20/20 01:00 Mechanical Ventilator 60 05/20/20 01:00 93 37 60 05/20/20 00:00 60 05/20/20 00:00 96.8 96 22 154/92 (112) 100 05/20/20 00:00 97 05/20/20 00:00 Mechanical Ventilator 05/19/20 23:30 90 40 60 05/19/20 21:00 92 31 60 05/19/20 20:49 88 128/80 05/19/20 20:00 97.0 86 20 128/80 (96) 100 05/19/20 20:00 90 05/19/20 20:00 60 05/19/20 20:00 Mechanical Ventilator 05/19/20 19:30 100 Mechanical Ventilator 60 05/19/20 19:30 97 30 60 05/19/20 17:50 106 164/91 05/19/20 17:34 101 30 60 05/19/20 16:40 116 05/19/20 16:00 60 05/19/20 16:00 Mechanical Ventilator 05/19/20 16:00 122 05/19/20 15:53 97.3 109 23 164/91 (115) 98 05/19/20 15:45 126 40 60 05/19/20 15:13 116 22 100 T-Piece 10.0 98 127 26 98 05/19/20 13:00 98 Cool Aerosol 10.0 60 05/19/20 12:25 10.0 60 05/19/20 12:00 60 05/19/20 12:00 98.7 92 19 130/75 (93) 97 05/19/20 12:00 T-piece 05/19/20 12:00 95 05/19/20 11:43 100 34 60 05/19/20 10:15 118 05/19/20 09:50 70 05/19/20 09:50 136 45 70 Intake and Output 05/19/20 05/20/20 19:00 07:00 Intake Total 700 ml 800 ml Output Total 1800 ml 2200 ml Balance -1100 ml -1400 ml Free Water 100 ml 200 ml Tube Feeding 600 ml 600 ml Output Urine Total 1800 ml 2200 ml # Bowel Movements 1 3 Current Medications Medications (Trade) Dose Ordered Sig/Dennis Route PRN Reason Start Time Stop Time Status Last Admin Dose Admin Acetaminophen (Tylenol) 650 mg Q4H PRN GT Mild Pain (Pain Scale 1-3) 05/02/20 08:45 06/01/20 08:44 05/08/20 20:28 Acetaminophen/ Hydrocodone Bitart ([place] 10/325) 1 tab Q4H PRN ORAL For Pain 05/16/20 09:45 05/23/20 09:44 05/20/20 00:09 Amlodipine Besylate (Norvasc) 2.5 mg BID GT 05/02/20 18:00 06/02/20 08:59 05/20/20 08:25 Atorvastatin Calcium (Lipitor) 40 mg BEDTIME GT 05/18/20 21:00 08/16/20 20:59 05/19/20 20:48 Barium Sulfate (Varibar Honey) 250 ml NOW PRN MC RAD 05/17/20 10:15 05/20/20 10:13 Barium Sulfate (Varibar Ferriday) 240 ml NOW PRN MC RAD 05/17/20 10:15 05/20/20 10:13 Barium Sulfate (Varibar Pudding) 230 ml NOW PRN MC RAD 05/17/20 10:15 05/20/20 10:13 Barium Sulfate (Varibar Thin Liquid powder) 148 gm NOW PRN MC RAD 05/17/20 10:15 05/20/20 10:13 Cefepime HCl 2 gm/ Dextrose 100 ml @ 200 mls/hr EVERY 8 HOURS IVPB 05/15/20 22:00 05/22/20 21:59 05/20/20 05:32 Chlorhexidine Gluconate (Marlen-Hex 2%) 1 applic DAILY@2000 TOPIC 03/30/20 20:00 06/28/20 19:59 05/19/20 20:44 Enoxaparin Sodium (Lovenox) 80 mg EVERY 12 HOURS SUBQ 05/18/20 21:00 08/16/20 20:59 05/20/20 08:27 Famotidine (Pepcid) 20 mg Q12HR PRN GT HEARTBURN 05/08/20 13:15 06/01/20 15:14 05/13/20 08:52 Hydralazine HCl (Apresoline) 10 mg Q4H PRN IV For High Blood Pressure 03/30/20 12:15 06/28/20 12:14 05/11/20 14:37 Ipratropium [place] (Atrovent) 500 mcg Q6H PRN HHN Shortness of Breath 05/17/20 09:00 05/22/20 08:59 05/19/20 15:02 Lansoprazole (Prevacid) 30 mg DAILY GT 05/20/20 09:00 06/01/20 08:59 05/20/20 08:25 Lorazepam (Ativan) 1 mg Q6H PRN GT For Anxiety 05/17/20 08:59 05/24/20 08:58 05/19/20 16:40 Metoprolol Tartrate (Lopressor) 25 mg Q12HR ORAL 05/17/20 21:00 08/15/20 20:59 05/20/20 08:25 Metronidazole 100 ml @ 100 mls/hr Q8HR IVPB 05/16/20 14:00 05/23/20 13:59 05/20/20 06:11 Ondansetron HCl (Zofran) 4 mg Q6H PRN IVP Nausea & Vomiting 05/16/20 09:45 06/15/20 09:44 05/16/20 10:02 Prednisone (predniSONE) 5 mg DAILY GT 05/13/20 09:00 06/05/20 08:59 05/20/20 08:25 Quetiapine Fumarate (SEROqueL) 50 mg EVERY 8 HOURS GT 05/13/20 14:00 06/11/20 11:59 05/20/20 06:11 Vitamin D (Vitamin D) 3,000 unit DAILY GT 05/18/20 09:00 06/17/20 08:59 05/20/20 08:25 Laboratory Tests 05/19/20 10:30: White Blood Count 12.2H, Red Blood Count 3.70L, Hemoglobin 10.4L, Hematocrit 33.9L, Mean Corpuscular Volume 91, Mean Corpuscular Hemoglobin 28.0, Mean Corpuscular Hemoglobin Concent 30.6L, Red Cell Distribution Width 15.7H, Platelet Count 433, Mean Platelet Volume 6.7, Neutrophils (%) (Auto) , Lymphocytes (%) (Auto) , Monocytes (%) (Auto) , Eosinophils (%) (Auto) , Basophils (%) (Auto) , Differential Total Cells Counted 100, Neutrophils % (Manual) 87H, Lymphocytes % (Manual) 5L, Monocytes % (Manual) 7, Eosinophils % (Manual) 1, Basophils % (Manual) 0, Band Neutrophils 0, Platelet Estimate [place] te, Platelet Morphology Normal, Polychromasia 1+, Hypochromasia 1+, Anisocytosis 1+, Vancomycin Level Trough 21.1H 05/20/20 07:30: White Blood Count 8.7, Red Blood Count 3.19L, Hemoglobin 9.2L, Hematocrit 28.5L, Mean Corpuscular Volume 89, Mean Corpuscular Hemoglobin 28.9, Mean Corpuscular Hemoglobin Concent 32.4, Red Cell Distribution Width 15.1H, Platelet Count 366, Mean Platelet Volume 6.1L, Neutrophils (%) (Auto) 75.9H, Lymphocytes (%) (Auto) 11.5L, Monocytes (%) (Auto) 8.5, Eosinophils (%) (Auto) 2.9, Basophils (%) (Auto) 1.3, Sodium Level 139, Potassium Level 3.9, Chloride Level 101, Carbon Dioxide Level 34H, Anion Gap 4L, Blood Urea Nitrogen 16, Creatinine 0.3L, Estimat Glomerular Filtration Rate > 60, Glucose Level 113H, Calcium Level 8.7, Pro-B-Type Natriuretic Peptide 407H Height (Feet): 5 Height (Inches): 10.00 Weight (Pounds): 243 General Appearance: no apparent distress EENT: other - Trach to vent Cardiovascular: tachycardia Respiratory/Chest: decreased breath sounds Abdomen: distended Rubin Cooper MD May 20, 2020 09:47
--- NOTE | 2020-05-20 11:38 | Pulmonology Progress Note ---
Subjective ROS Limited/Unobtainable: Yes Interval Events: Tolerating CPAP +PSV Constitutional: Reports: other - + vent, fio2-60 % HEENT: Repors: no symptoms Respiratory: Reports: no symptoms, shortness of breath Cardiovascular: Reports: no symptoms Gastrointestinal/Abdominal: Reports: no symptoms; Denies: nausea, vomiting, diarrhea Psychiatric: Reports: other - NA Skin: Denies: rash Musculoskeletal: Denies: pain Allergies: Coded Allergies: No Known Allergies (Unverified , 02/05/20) Objective Last 24 Hour Vital Signs Date Time Temp Pulse Resp B/P (MAP) Pulse Ox O2 Delivery O2 Flow Rate FiO2 05/20/20 10:54 86 32 40 05/20/20 08:25 102 148/78 05/20/20 08:25 102 148/78 05/20/20 08:05 102 34 40 05/20/20 08:00 Mechanical Ventilator 05/20/20 08:00 40 05/20/20 08:00 103 05/20/20 08:00 97.7 99 22 148/78 (101) 98 05/20/20 07:50 10.0 40 05/20/20 07:00 40 05/20/20 06:55 91 21 40 05/20/20 06:55 98 Mechanical Ventilator 40 05/20/20 05:30 107 36 40 05/20/20 04:00 97.9 94 22 151/91 (111) 100 05/20/20 04:00 60 05/20/20 04:00 Mechanical Ventilator 05/20/20 04:00 93 05/20/20 03:24 92 34 60 05/20/20 01:00 Mechanical Ventilator 60 05/20/20 01:00 93 37 60 05/20/20 00:00 60 05/20/20 00:00 96.8 96 22 154/92 (112) 100 05/20/20 00:00 97 05/20/20 00:00 Mechanical Ventilator 05/19/20 23:30 90 40 60 05/19/20 21:00 92 31 60 05/19/20 20:49 88 128/80 05/19/20 20:00 97.0 86 20 128/80 (96) 100 05/19/20 20:00 90 05/19/20 20:00 60 05/19/20 20:00 Mechanical Ventilator 05/19/20 19:30 100 Mechanical Ventilator 60 05/19/20 19:30 97 30 60 05/19/20 17:50 106 164/91 05/19/20 17:34 101 30 60 05/19/20 16:40 116 05/19/20 16:00 60 05/19/20 16:00 Mechanical Ventilator 05/19/20 16:00 122 05/19/20 15:53 97.3 109 23 164/91 (115) 98 05/19/20 15:45 126 40 60 05/19/20 15:13 116 22 100 T-Piece 10.0 98 127 26 98 05/19/20 13:00 98 Cool Aerosol 10.0 60 05/19/20 12:25 10.0 60 05/19/20 12:00 60 05/19/20 12:00 98.7 92 19 130/75 (93) 97 05/19/20 12:00 T-piece 05/19/20 12:00 95 05/19/20 11:43 100 34 60 Intake and Output 05/19/20 05/20/20 19:00 07:00 Intake Total 700 ml 800 ml Output Total 1800 ml 2200 ml Balance -1100 ml -1400 ml Free Water 100 ml 200 ml Tube Feeding 600 ml 600 ml Output Urine Total 1800 ml 2200 ml # Bowel Movements 1 3 General Appearance: WD/WN, no acute distress HEENT: normocephalic, atraumatic, status post trach Respiratory: chest wall non-tender Cardiovascular: normal rate, regular rhythm Abdomen: normal bowel sounds, soft, non tender, other - obese Extremities: no edema, other - L arm weakness and swelling without redness Neurologic: alert, oriented x 3, normal mood/affect Laboratory Tests 05/20/20 07:30: White Blood Count 8.7, Red Blood Count 3.19L, Hemoglobin 9.2L, Hematocrit 28.5L, Mean Corpuscular Volume 89, Mean Corpuscular Hemoglobin 28.9, Mean Corpuscular Hemoglobin Concent 32.4, Red Cell Distribution Width 15.1H, Platelet Count 366, Mean Platelet Volume 6.1L, Neutrophils (%) (Auto) 75.9H, Lymphocytes (%) (Auto) 11.5L, Monocytes (%) (Auto) 8.5, Eosinophils (%) (Auto) 2.9, Basophils (%) (Auto) 1.3, Sodium Level 139, Potassium Level 3.9, Chloride Level 101, Carbon Dioxide Level 34H, Anion Gap 4L, Blood Urea Nitrogen 16, Creatinine 0.3L, Estimat Glomerular Filtration Rate > 60, Glucose Level 113H, Calcium Level 8.7, Pro-B-Type Natriuretic Peptide 407H Current Medications Medications (Trade) Dose Ordered Sig/Dennis Route PRN Reason Start Time Stop Time Status Last Admin Dose Admin Acetaminophen (Tylenol) 650 mg Q4H PRN GT Mild Pain (Pain Scale 1-3) 05/02/20 08:45 06/01/20 08:44 05/08/20 20:28 Acetaminophen/ Hydrocodone Bitart ([place] 10/325) 1 tab Q4H PRN ORAL For Pain 05/16/20 09:45 05/23/20 09:44 05/20/20 00:09 Amlodipine Besylate (Norvasc) 2.5 mg BID GT 05/02/20 18:00 06/02/20 08:59 05/20/20 08:25 Atorvastatin Calcium (Lipitor) 40 mg BEDTIME GT 05/18/20 21:00 08/16/20 20:59 05/19/20 20:48 Cefepime HCl 2 gm/ Dextrose 100 ml @ 200 mls/hr EVERY 8 HOURS IVPB 05/15/20 22:00 05/22/20 21:59 05/20/20 05:32 Chlorhexidine Gluconate (Marlen-Hex 2%) 1 applic DAILY@2000 TOPIC 03/30/20 20:00 06/28/20 19:59 05/19/20 20:44 Enoxaparin Sodium (Lovenox) 80 mg EVERY 12 HOURS SUBQ 05/18/20 21:00 08/16/20 20:59 05/20/20 08:27 Famotidine (Pepcid) 20 mg Q12HR PRN GT HEARTBURN 05/08/20 13:15 06/01/20 15:14 05/13/20 08:52 Hydralazine HCl (Apresoline) 10 mg Q4H PRN IV For High Blood Pressure 03/30/20 12:15 06/28/20 12:14 05/11/20 14:37 Ipratropium [place] (Atrovent) 500 mcg Q6H PRN HHN Shortness of Breath 05/17/20 09:00 05/22/20 08:59 05/19/20 15:02 Lansoprazole (Prevacid) 30 mg DAILY GT 05/20/20 09:00 06/01/20 08:59 05/20/20 08:25 Lorazepam (Ativan) 1 mg Q6H PRN GT For Anxiety 05/17/20 08:59 05/24/20 08:58 05/19/20 16:40 Metoprolol Tartrate (Lopressor) 25 mg Q12HR ORAL 05/17/20 21:00 08/15/20 20:59 05/20/20 08:25 Metronidazole 100 ml @ 100 mls/hr Q8HR IVPB 05/16/20 14:00 05/23/20 13:59 05/20/20 06:11 Ondansetron HCl (Zofran) 4 mg Q6H PRN IVP Nausea & Vomiting 05/16/20 09:45 06/15/20 09:44 05/16/20 10:02 Prednisone (predniSONE) 5 mg DAILY GT 05/13/20 09:00 06/05/20 08:59 05/20/20 08:25 Quetiapine Fumarate (SEROqueL) 50 mg EVERY 8 HOURS GT 05/13/20 14:00 06/11/20 11:59 05/20/20 06:11 Vitamin D (Vitamin D) 3,000 unit DAILY GT 05/18/20 09:00 06/17/20 08:59 05/20/20 08:25 Assessment/Plan Assessment/Plan 1.COVID-19 pneumonia. - Completed specific therapies - tapering steroid -> now on prednisone 5 mg QD; will dc - s/p bactrim for PJP prophylaxis 2. DVT ppx - Lovenox 3. Hypertension - On Norvasc 4. Leukocytosis; resolved - ID following - Candidemia documented 03/18/20 5. Elevated LFT; still elevated but downtrending - positive Hep C; treated in the past with IF - Abd US, Abd CT don't show evidence of cholecystitis - Lipase/amylase wnl 6. Respiratory failure -Intubated 03/28/20; s/p tracheostomy 04/25/20 -Gradually weaned off sedation 7. Left UE edema and weakness - Follow up CT confirms acute CVA 8. Pneumomediastinum - no PTX - now on T-piece 9. New onset vomiting with R sided abd pain - Abd US, abd CT - Zofran prn n/v - Dw surgery; n o indication for surgical intervention at this time 10. Yeast UTI - ID following 11. BCx gram positive rods - ID following S/p PEG Off IV fluids Dc planning to subacute -> ordered correctional case records supervisor consult for placement On seroquel 50 mg PO TID; On Ativan and [place] DC pending placement John Mata MD May 20, 2020 11:38
[2020-05-20 12:00] VITALS: BP 139/77
--- NOTE | 2020-05-20 14:38 | Surgery Progress Note ---
Surgery Progress Note Subjective Procedure Performed tracheostomy Additional Comments no pain no n/v/f/c labs okay improved tolerating diet Objective Last 24 Hour Vital Signs Date Time Temp Pulse Resp B/P (MAP) Pulse Ox O2 Delivery O2 Flow Rate FiO2 05/20/20 13:08 98 Mechanical Ventilator 40 05/20/20 13:08 102 36 40 05/20/20 12:00 98.1 95 22 139/77 (97) 97 05/20/20 12:00 103 05/20/20 12:00 40 05/20/20 12:00 Mechanical Ventilator 05/20/20 10:54 86 32 40 05/20/20 08:25 102 148/78 05/20/20 08:25 102 148/78 05/20/20 08:05 102 34 40 05/20/20 08:00 Mechanical Ventilator 05/20/20 08:00 40 05/20/20 08:00 103 05/20/20 08:00 97.7 99 22 148/78 (101) 98 05/20/20 07:50 10.0 40 05/20/20 07:00 40 05/20/20 06:55 91 21 40 05/20/20 06:55 98 Mechanical Ventilator 40 05/20/20 05:30 107 36 40 05/20/20 04:00 97.9 94 22 151/91 (111) 100 05/20/20 04:00 60 05/20/20 04:00 Mechanical Ventilator 05/20/20 04:00 93 05/20/20 03:24 92 34 60 05/20/20 01:00 Mechanical Ventilator 60 05/20/20 01:00 93 37 60 05/20/20 00:00 60 05/20/20 00:00 96.8 96 22 154/92 (112) 100 05/20/20 00:00 97 05/20/20 00:00 Mechanical Ventilator 05/19/20 23:30 90 40 60 05/19/20 21:00 92 31 60 05/19/20 20:49 88 128/80 05/19/20 20:00 97.0 86 20 128/80 (96) 100 05/19/20 20:00 90 05/19/20 20:00 60 05/19/20 20:00 Mechanical Ventilator 05/19/20 19:30 100 Mechanical Ventilator 60 3/19/21 19:30 97 30 60 05/19/20 17:50 106 164/91 05/19/20 17:34 101 30 60 05/19/20 16:40 116 05/19/20 16:00 60 05/19/20 16:00 Mechanical Ventilator 05/19/20 16:00 122 05/19/20 15:53 97.3 109 23 164/91 (115) 98 05/19/20 15:45 126 40 60 05/19/20 15:13 116 22 100 T-Piece 10.0 98 127 26 98 I&O Intake and Output 05/19/20 05/20/20 19:00 07:00 Intake Total 700 ml 800 ml Output Total 1800 ml 2200 ml Balance -1100 ml -1400 ml Free Water 100 ml 200 ml Tube Feeding 600 ml 600 ml Output Urine Total 1800 ml 2200 ml # Bowel Movements 1 3 Dressing: saturated Cardiovascular: RSR Respiratory: decreased breath sounds Abdomen: soft, flat, non-tender, present bowel sounds, non-distended Extremities: no edema, no tenderness, no cyanosis Laboratory Tests Test 05/20/20 07:30 White Blood Count 8.7 K/UL (4.8-10.8) Red Blood Count 3.19 M/UL (4.70-6.10) L Hemoglobin 9.2 G/DL (14.2-18.0) L Hematocrit 28.5 % (42.0-52.0) L Mean Corpuscular Volume 89 FL (80-99) Mean Corpuscular Hemoglobin 28.9 PG (27.0-31.0) Mean Corpuscular Hemoglobin Concent 32.4 G/DL (32.0-36.0) Red Cell Distribution Width 15.1 % (11.6-14.8) H Platelet Count 366 K/UL (150-450) Mean Platelet Volume 6.1 FL (6.5-10.1) L Neutrophils (%) (Auto) 75.9 % (45.0-75.0) H Lymphocytes (%) (Auto) 11.5 % (20.0-45.0) L Monocytes (%) (Auto) 8.5 % (1.0-10.0) Eosinophils (%) (Auto) 2.9 % (0.0-3.0) Basophils (%) (Auto) 1.3 % (0.0-2.0) Sodium Level 139 MMOL/L (136-145) Potassium Level 3.9 MMOL/L (3.5-5.1) Chloride Level 101 MMOL/L (98-107) Carbon Dioxide Level 34 MMOL/L (21-32) H Anion Gap 4 mmol/L (5-15) L Blood Urea Nitrogen 16 mg/dL (7-18) Creatinine 0.3 MG/DL (0.55-1.30) L Estimat Glomerular Filtration Rate > 60 mL/min (>60) Glucose Level 113 MG/DL (74-106) H Calcium Level 8.7 MG/DL (8.5-10.1) Pro-B-Type Natriuretic Peptide 407 pg/mL (0-125) H Plan Problems: (1) Pneumonia (2) Staphylococcus aureus bacteremia (3) COVID-19 virus infection Assessment & Plan: prior now neg improving (4) Chest pain (5) Hypertension (6) Dehydration (7) Electrolyte imbalance (8) DMII (diabetes mellitus, type 2) (9) Protein malnutrition Assessment & Plan: DAILY ESTIMATED NEEDS: Needs based on Critical care, wound 81kg abw 22-28 kcals/kg 1298-0781 total kcals 1.25-2 g protein/kg 101-162 g total protein 25-30 mL/kg 6356-8013 total fluid mLs NUTRITION DIAGNOSIS: * Increased kcal/prot/micronutrients needs R/T wound healing as evidenced by pt w/ new multiple pressure injuries, 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 * Inadequate oral intake R/T clinical and respiratory status as evidenced by COVID-19 ++, on continuous BIPAP, prolonged meal refusals, pt is now on TPN, pt orally intubated (03/28), s/p trach placement (04/26), and s/p PEG placement (04/27), now on GT feeds. * Decreased sodium and fat needs r/t HTN and obesity as evidenced by pt w/ cardiac history, elev BP (159/98-> now improved, on BP meds and diuretics), BMI >30, obese per guidelines. (INACTIVE) CURRENT TF:Glucerna 1.5 goal of 50 + Prosource BID ENTERAL NUTRITION RECOMMENDATIONS: Glucerna 1.5 @ 50ml/hr x 24 hrs + Prosource 1pkt BID to provide 1200ml, 1800kcal, 99g +22g prot (121g total prot), 926ml free water * Maintain current TF order * Con't Prosource 1pkt BID (additional 22g prot) to better meet est prot needs. ADDITIONAL RECOMMENDATIONS: 1) Maintain calibrated bedscale wts 2) Monitor BGs closely w/ Solumedrol (POC glu wnl at this time) 3) Monitor lytes, replete as needed 4) Monitor TF tolerance: PEG placed 04/28, cont to increase TF to goal as tolerated 5) Wound healing: Add Michael BID (mix w/ 2-4oz of water) TF @ goal provides 100% RDI, add Vit C 500mg QD, ZnSO4 220mg [id number] (10) Respiratory insufficiency Assessment & Plan: 64-year-old male with respiratory insufficiency intubated in an intensive care unit. Patient has been unable to safely wean off ventilatory support. Surgery called to evaluate for tracheostomy. After careful evaluation patient is a candidate for tracheostomy. In the meantime will obtain consent. If consent obtained will proceed with scheduling. Thank you for your participation's care will follow recommendations improving trach okay agitated weaning sedation no n/v cont weaning transition to oral meds via g tube get off drips improving downgraded weaning well more alert and awake responsive will need placement trach collar consideration pending sub acute placement okay for placement cont trach care leave sutures in place as dissolvable recovering well fully awake now tolerating diet d/c planning awaiting placement (11) LFT elevation Assessment & Plan: leukocytosis lfts elevated no n/v US ordered trend labs abx US noted labs improved hold anticoag cont tf trend labs pain improved no n/v/f/c labs improved wbc resolved lft's trending down hold on procedure okay to resume anticoag ct head noted neuro input Booker Rausch May 20, 2020 14:38
--- NOTE | 2020-05-20 15:56 | NUR ---
CASE MANAGEMENT:REVIEW 05/20/20 SI: COVID PNEUMONIA S/P TRACH AND G-TUBE PLACEMENT 98.1 103 22 139/77 97% ON VENT SUPPORT W/40% FIO2 H/H-9.2/28.5 CO2+34 GLUCOSE+113 IS: IV FLAGYL Q8HRS IV CEFEPIME Q8HRS PREVACID GT QD LOVENOX SQ Q12 LOPRESSOR GT Q12 SEROQUEL GT Q8HRS PREDNISONE GT QD NORVASC GT BID : SDU STATUS DCP: PLACEMENT PLAN: FAILED WEANING TO T-PIECE WILL CONTINUE TO ATTEMPT WEANING SUB ACUTE PLACEMENT
[2020-05-20 16:00] VITALS: BP 126/69
--- NOTE | 2020-05-20 16:14 | Neurology Progress Note ---
Interim History Interim History ROS Limited/Unobtainable: Yes Events: mri not done due to trach status and 02 Objective Physical Exam Last Vital Signs Date Time Temp Pulse Resp B/P (MAP) Pulse Ox O2 Delivery O2 Flow Rate FiO2 05/20/20 13:08 98 Mechanical Ventilator 40 05/20/20 13:08 102 36 05/20/20 12:00 98.1 139/77 (97) 05/20/20 07:50 10.0 Laboratory Tests Test 05/20/20 07:30 White Blood Count 8.7 K/UL (4.8-10.8) Red Blood Count 3.19 M/UL (4.70-6.10) L Hemoglobin 9.2 G/DL (14.2-18.0) L Hematocrit 28.5 % (42.0-52.0) L Mean Corpuscular Volume 89 FL (80-99) Mean Corpuscular Hemoglobin 28.9 PG (27.0-31.0) Mean Corpuscular Hemoglobin Concent 32.4 G/DL (32.0-36.0) Red Cell Distribution Width 15.1 % (11.6-14.8) H Platelet Count 366 K/UL (150-450) Mean Platelet Volume 6.1 FL (6.5-10.1) L Neutrophils (%) (Auto) 75.9 % (45.0-75.0) H Lymphocytes (%) (Auto) 11.5 % (20.0-45.0) L Monocytes (%) (Auto) 8.5 % (1.0-10.0) Eosinophils (%) (Auto) 2.9 % (0.0-3.0) Basophils (%) (Auto) 1.3 % (0.0-2.0) Sodium Level 139 MMOL/L (136-145) Potassium Level 3.9 MMOL/L (3.5-5.1) Chloride Level 101 MMOL/L (98-107) Carbon Dioxide Level 34 MMOL/L (21-32) H Anion Gap 4 mmol/L (5-15) L Blood Urea Nitrogen 16 mg/dL (7-18) Creatinine 0.3 MG/DL (0.55-1.30) L Estimat Glomerular Filtration Rate > 60 mL/min (>60) Glucose Level 113 MG/DL (74-106) H Calcium Level 8.7 MG/DL (8.5-10.1) Pro-B-Type Natriuretic Peptide 407 pg/mL (0-125) H Neurologic Exam Objective PHYSICAL EXAMINATION: General: Pt is awake oriented and has insight to situation. Neuro: resting in bed watching television,Awake,alert oriented x4 language parameters intact, Comprehension intact PERRLA, No nystagmus with gaze. No facial droop tongue is midline. Hearing intact. No involuntary movement, bedbound gait not tested. Right upper extremity 3/5, left upper extremity unable to move, raise and squeeze my hand bilateral lower extremities 1/5. Impression/Recommendations Status: stable, unchanged Diagnostic Impression LABORATORY DATA: Reviewed. IMAGING CT Head: Negative for acute intracranial bleed or mass effect Mild frontal cortical volume loss Cervical soft tissue emphysema, also reported on recent chest radiograph 05/17: Repeat CT HEAD: Very questionable slightly more prominent right frontal deep white matter low-attenuation, if real could represent an evolving lacunar infarct rather than just routine deep white matter ischemic change. If clinically indicated, MRI may be useful to clarify Otherwise unchanged noncontrast findings, since 05/15/2020, with mild age-related volume loss and periventricular deep white matter ischemic change. No unusual contrast enhancing lesion demonstrated. Assessment and Rec's: 1. Possible Evolving Right Lacunar Stroke which could be contributing to his Left Upper Extremity weakness --> CT head Very questionable slightly more prominent right frontal deep white matter low-attenuation, if real could represent an evolving lacunar infarct rather than just routine deep white matter ischemic change. If clinically indicated, MRI may be useful- at this time MRI cannot be done here Would re commend as an outpatient. --> LUE edema, unable to raise arm --> CT Head imaging reviewed as above --> Continue PT/OT and possible ARU as he is a strong candidate have d/w primary care team. Dc planning to subacute 2. Covid 19 Disease, complicated --> s/p treatment. 3. 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 Smoker. 4. PNA Covid 19 Thank you for allowing us to participate in patient's care, Plan of care was reviewed with Dr. Manoj Lopez and he agrees with plan of care. Nina Zafar [employer] May 20, 2020 16:14
--- NOTE | 2020-05-20 19:17 | NUR ---
NURSE HAND-OFF REPORT: Important Events on Shift: f/c leakage Patient Status: stable Diet: tube feeding as ordered Pending Orders: covid rapid test on 05/21/20 Pending Results/Labs:CXR Pending MD notification:N/A Latest Vital Signs: Temperature 97.9 , Pulse 97 , B/P 126 /69 , Respiratory Rate 37 , O2 SAT 98 , Mechanical Ventilator, O2 Flow Rate 10.0 . Vital Sign Comment: stable EKG Rhythm: Sinus Rhythm Rhythm change?: N MD Notified?: -Dr. Chito INTERIANO Response: No New Orders Received Latest Hassan Fall Score: 35 Fall Risk: Medium Risk Safety Measures: Call light Within Reach, Bed Alarm Zone 2, Side Rails Side Rails x3, Bed position Low and Locked. Fall Precautions: y Yellow Socks Yellow Gown Door Sign Patient Fall Education Report given to PIRYANKA Tyler.
--- NOTE | 2020-05-20 19:22 | NUR ---
NURSE NOTES: Report received from PRIYANKA Martinez. Patient is awake on bed, alert and oriented x 4 non-verbal. quality assurance monitor final is in place, shows sinus rhythm with no chest pain reported. Patient has trach to CPAP, pressure support of 5, peep of 5 and Fi02 @ 40%. With g-tube, on Glucerna 1.5 @ 50 cc/hour, flushing of 150cc every 6 hours and no residual reported. PICC line on right upper arm double lumen. Patient has joseph catheter f-16, drained via gravity with yellow to light jeff color urine output. Safrety measures are in place, bed in lowest and locked position, side rails up x 2, call light button and bedside table within reach, instructed to call for any assistance needed. Will continue plan of care.
[2020-05-20 20:00] VITALS: BP 152/85
[2020-05-20] MEDS: Dyna-Hex 2% Top Sol 2oz TOPIC SCH (20:19)
[2020-05-20] MEDS: Atorvastatin 20mg tab GT SCH (20:20)
[2020-05-20] MEDS ORDERED: Dyna-Hex 2% Top Sol 2oz TOPIC SCH (21:00)
--- NOTE | 2020-05-20 21:39 | Cardiology Progress Note ---
Assessment/Plan Assessment/Plan no acute cardiac issues Subjective Subjective alert, sleepy, on vent Objective Last 24 Hour Vital Signs Date Time Temp Pulse Resp B/P (MAP) Pulse Ox O2 Delivery O2 Flow Rate FiO2 05/20/20 20:54 96 29 40 05/20/20 20:20 95 131/62 05/20/20 20:00 95 05/20/20 20:00 97.7 90 29 152/85 (107) 99 05/20/20 19:07 97 37 40 05/20/20 19:07 98 Mechanical Ventilator 40 05/20/20 18:09 96 126/69 05/20/20 17:08 96 27 40 05/20/20 16:00 40 05/20/20 16:00 89 05/20/20 16:00 Mechanical Ventilator 05/20/20 16:00 97.9 92 20 126/69 (88) 97 05/20/20 13:08 98 Mechanical Ventilator 40 05/20/20 13:08 102 36 40 05/20/20 12:00 98.1 95 22 139/77 (97) 97 05/20/20 12:00 103 05/20/20 12:00 40 05/20/20 12:00 Mechanical Ventilator 05/20/20 10:54 86 32 40 05/20/20 08:25 102 148/78 05/20/20 08:25 102 148/78 05/20/20 08:05 102 34 40 05/20/20 08:00 Mechanical Ventilator 05/20/20 08:00 40 05/20/20 08:00 103 05/20/20 08:00 97.7 99 22 148/78 (101) 98 05/20/20 07:50 10.0 40 05/20/20 07:00 40 05/20/20 06:55 91 21 40 05/20/20 06:55 98 Mechanical Ventilator 40 05/20/20 05:30 107 36 40 05/20/20 04:00 97.9 94 22 151/91 (111) 100 05/20/20 04:00 60 05/20/20 04:00 Mechanical Ventilator 05/20/20 04:00 93 05/20/20 03:24 92 34 60 05/20/20 01:00 Mechanical Ventilator 60 05/20/20 01:00 93 37 60 05/20/20 00:00 60 05/20/20 00:00 96.8 96 22 154/92 (112) 100 05/20/20 00:00 97 05/20/20 00:00 Mechanical Ventilator 05/19/20 23:30 90 40 60 General Appearance: on vent EENT: PERRL/EOMI Neck: other - trach Rhythm: ST Cardiovascular: regular rhythm, tachycardia Respiratory/Chest: rhonchi - bilaterally Abdomen: distended Extremities: other Intake and Output 05/19/20 05/20/20 19:00 07:00 Intake Total 700 ml 800 ml Output Total 1800 ml 2200 ml Balance -1100 ml -1400 ml Free Water 100 ml 200 ml Tube Feeding 600 ml 600 ml Output Urine Total 1800 ml 2200 ml # Bowel Movements 1 3 Laboratory Tests Test 05/20/20 07:30 White Blood Count 8.7 K/UL (4.8-10.8) Red Blood Count 3.19 M/UL (4.70-6.10) L Hemoglobin 9.2 G/DL (14.2-18.0) L Hematocrit 28.5 % (42.0-52.0) L Mean Corpuscular Volume 89 FL (80-99) Mean Corpuscular Hemoglobin 28.9 PG (27.0-31.0) Mean Corpuscular Hemoglobin Concent 32.4 G/DL (32.0-36.0) Red Cell Distribution Width 15.1 % (11.6-14.8) H Platelet Count 366 K/UL (150-450) Mean Platelet Volume 6.1 FL (6.5-10.1) L Neutrophils (%) (Auto) 75.9 % (45.0-75.0) H Lymphocytes (%) (Auto) 11.5 % (20.0-45.0) L Monocytes (%) (Auto) 8.5 % (1.0-10.0) Eosinophils (%) (Auto) 2.9 % (0.0-3.0) Basophils (%) (Auto) 1.3 % (0.0-2.0) Sodium Level 139 MMOL/L (136-145) Potassium Level 3.9 MMOL/L (3.5-5.1) Chloride Level 101 MMOL/L (98-107) Carbon Dioxide Level 34 MMOL/L (21-32) H Anion Gap 4 mmol/L (5-15) L Blood Urea Nitrogen 16 mg/dL (7-18) Creatinine 0.3 MG/DL (0.55-1.30) L Estimat Glomerular Filtration Rate > 60 mL/min (>60) Glucose Level 113 MG/DL (74-106) H Calcium Level 8.7 MG/DL (8.5-10.1) Pro-B-Type Natriuretic Peptide 407 pg/mL (0-125) H Cha Chopra MD May 20, 2020 21:39
--- NOTE | 2020-05-20 21:44 | Diagnostic Imaging Report ---
EXAM: XR Chest, 1 View CLINICAL HISTORY: TACHYP TECHNIQUE: Frontal view of the chest. COMPARISON: 05/18/2020 FINDINGS: Lungs: Unchanged extensive interstitial and airspace opacities throughout the lungs. Pleural space: No pleural effusion. No pneumothorax. Heart: Unremarkable. No cardiomegaly. Soft tissues: Redemonstrated but improved subcutaneous emphysema. Tubes, lines and devices: Tracheostomy cannula and right upper extremity PICC unchanged. IMPRESSION: Unchanged appearance of the lungs. No new acute abnormality. Decreasing subcutaneous emphysema.
--- NOTE | 2020-05-20 21:55 | NUR ---
NURSE NOTES: Patient complaints of pain on his lower abdomen, no residual noted on g-tube, still running Glucerna 1.5 @ 50 cc/hour. [place] 10mg/325 was given as PRN medication. Will continue to monitor.
[2020-05-21] VITALS: BP 147/88
--- NOTE | 2020-05-21 00:05 | NUR ---
NURSE NOTES: Patient has been resting comfortably, no desaturations nor hypotension noted. Suction secretions, will continue to monitor.
[2020-05-21 04:00] VITALS: BP 149/81
[2020-05-21] MEDS: HYDROcodone/Acetamin 10/325 tab ORAL PRN ×3 (05:55→21:28)
--- NOTE | 2020-05-21 06:15 | NUR ---
NURSE NOTES: Covid swab collected and sent to lab, will endorse to morning RN.
--- NOTE | 2020-05-21 06:30 | NUR ---
NURSE NOTES: Patient has been complaining of lower abdominal pain but resolved with [place] 10/325. Minimal residual noted on g-tube amounting to 20-30cc, also RN noticed that significant amount of gases has been aspirate on G-tube. Will endorsed to morning RN.
--- NOTE | 2020-05-21 06:58 | NUR ---
NURSE NOTES: Received report from PRIYANKA Tyler. Pt in bed awake and orientedx4. PICC in right upper arm with 2 lumen SL, patent and asymptomatic. Side railsx3 up for safety. On DAVIS mattress. Call light within easy reach. HOB elevated with 30 degree. F/C drained with jeff, yellow color urine. On Tube feeding with Glucerna 1.5 @50ml/hr. Bilateral legs elevated with pillows. Noted swelling on left arm, elevated with pillow. Will continue plan of care.
--- NOTE | 2020-05-21 06:59 | NUR ---
NURSE HAND-OFF REPORT: Important Events on Shift: Patient has been complaining of lower abdominal pain but resolved with pain medication. Covid swab collected and sent to lab. Patient Status: Patient is awake in stable condition. Plan of care endorsed. Diet: Glucerna 1.5 @ 50 cc/hour. Flushing of 150 cc every 6 hours. Pending Orders: none Pending Results/Labs: Covid swab result Pending MD notification:none Latest Vital Signs: Temperature 97.9 , Pulse 96 , B/P 149 /81 , Respiratory Rate 18 , O2 SAT 100 , Mechanical Ventilator, O2 Flow Rate 10.0 . Vital Sign Comment: stable EKG Rhythm: Sinus Rhythm Rhythm change?: N MD Notified?: -Dr. Chito INTERIANO Response: No New Orders Received Latest Hassan Fall Score: 35 Fall Risk: Medium Risk Safety Measures: Call light Within Reach, Bed Alarm Zone 1, Side Rails Side Rails x3, Bed position Low and Locked. Fall Precautions: Yellow Socks Yellow Gown Door Sign Patient Fall Education Report given to PRIYANKA Martinez.
--- NOTE | 2020-05-21 07:00 | NUR ---
NURSE NOTES: Received report from PRIYANKA Tyler. Pt in bed awake and orientedx4. No c/o pain. No acute distress noted. On 1LPM O2 via N/C. IV in right hand 20G SL patent and intact. Call light within easy reach. Side railsx2 up for safety. Will continue plan of care. Addendum: 05/21/20 at 0703 by Renny Sanchez RN wrong patient
--- NOTE | 2020-05-21 07:05 | NUR ---
NURSE NOTES: Pt refused a trial of T-piece this morning. Will ask the patient later today.
--- NOTE | 2020-05-21 07:43 | Pulmonology Progress Note ---
Subjective ROS Limited/Unobtainable: Yes Interval Events: Tolerating CPAP +PSV Constitutional: Reports: other - + vent, fio2-60 % HEENT: Repors: no symptoms Respiratory: Reports: no symptoms, shortness of breath Cardiovascular: Reports: no symptoms Gastrointestinal/Abdominal: Reports: no symptoms; Denies: nausea, vomiting, diarrhea Psychiatric: Reports: other - NA Skin: Denies: rash Musculoskeletal: Denies: pain Allergies: Coded Allergies: No Known Allergies (Unverified , 02/05/20) Objective Last 24 Hour Vital Signs Date Time Temp Pulse Resp B/P (MAP) Pulse Ox O2 Delivery O2 Flow Rate FiO2 05/21/20 07:00 98 Mechanical Ventilator 40 05/21/20 07:00 90 28 40 05/21/20 04:34 96 18 40 05/21/20 04:00 Mechanical Ventilator 05/21/20 04:00 95 05/21/20 04:00 40 05/21/20 04:00 97.9 95 24 149/81 (103) 100 05/21/20 03:08 95 27 40 05/21/20 00:39 91 18 40 05/21/20 00:39 98 Mechanical Ventilator 40 05/21/20 00:00 Mechanical Ventilator 05/21/20 00:00 97.7 92 22 147/88 (107) 100 05/21/20 00:00 40 05/21/20 00:00 87 05/20/20 22:14 95 29 40 05/20/20 20:54 96 29 40 05/20/20 20:20 95 131/62 05/20/20 20:00 95 05/20/20 20:00 97.7 90 29 152/85 (107) 99 05/20/20 20:00 40 05/20/20 20:00 Mechanical Ventilator 05/20/20 19:07 97 37 40 05/20/20 19:07 98 Mechanical Ventilator 40 05/20/20 18:09 96 126/69 05/20/20 17:08 96 27 40 05/20/20 16:00 40 05/20/20 16:00 89 05/20/20 16:00 Mechanical Ventilator 05/20/20 16:00 97.9 92 20 126/69 (88) 97 05/20/20 13:08 98 Mechanical Ventilator 40 05/20/20 13:08 102 36 40 05/20/20 12:00 98.1 95 22 139/77 (97) 97 05/20/20 12:00 103 05/20/20 12:00 40 05/20/20 12:00 Mechanical Ventilator 05/20/20 10:54 86 32 40 05/20/20 08:25 102 148/78 05/20/20 08:25 102 148/78 05/20/20 08:05 102 34 40 05/20/20 08:00 Mechanical Ventilator 05/20/20 08:00 40 05/20/20 08:00 103 05/20/20 08:00 97.7 99 22 148/78 (101) 98 05/20/20 07:50 10.0 40 Intake and Output 05/20/20 05/21/20 19:00 07:00 Intake Total 1050 ml 900 ml Output Total 1000 ml 650 ml Balance 50 ml 250 ml Free Water 250 ml 300 ml IV Total 200 ml Tube Feeding 600 ml 550 ml Other 50 ml Output Urine Total 1000 ml 650 ml # Bowel Movements 2 General Appearance: WD/WN, no acute distress HEENT: normocephalic, atraumatic, status post trach Respiratory: chest wall non-tender Cardiovascular: normal rate, regular rhythm Abdomen: normal bowel sounds, soft, non tender, other - obese Extremities: no edema, other - L arm weakness and swelling without redness Neurologic: alert, oriented x 3, normal mood/affect Microbiology Date/Time Source Procedure Growth Status 05/21/20 06:05 Nasopharynx SARS-CoV-2 Antigen (Rapid)(HAMLET) - Final Complete Current Medications Medications (Trade) Dose Ordered Sig/Dennis Route PRN Reason Start Time Stop Time Status Last Admin Dose Admin Acetaminophen (Tylenol) 650 mg Q4H PRN GT Mild Pain (Pain Scale 1-3) 05/02/20 08:45 06/01/20 08:44 05/08/20 20:28 Acetaminophen/ Hydrocodone Bitart ([place] 10/325) 1 tab Q4H PRN ORAL For Pain 05/16/20 09:45 05/23/20 09:44 05/21/20 05:55 Amlodipine Besylate (Norvasc) 2.5 mg BID GT 05/02/20 18:00 06/02/20 08:59 05/20/20 18:09 Atorvastatin Calcium (Lipitor) 40 mg BEDTIME GT 05/18/20 21:00 08/16/20 20:59 05/20/20 20:20 Cefepime HCl 2 gm/ Dextrose 100 ml @ 200 mls/hr EVERY 8 HOURS IVPB 05/15/20 22:00 05/22/20 21:59 05/21/20 05:48 Chlorhexidine Gluconate (Marlen-Hex 2%) 1 applic DAILY@2000 TOPIC 03/30/20 20:00 06/28/20 19:59 05/20/20 20:19 Enoxaparin Sodium (Lovenox) 80 mg EVERY 12 HOURS SUBQ 05/18/20 21:00 08/16/20 20:59 05/20/20 20:19 Famotidine (Pepcid) 20 mg Q12HR PRN GT HEARTBURN 05/08/20 13:15 06/01/20 15:14 05/13/20 08:52 Hydralazine HCl (Apresoline) 10 mg Q4H PRN IV For High Blood Pressure 03/30/20 12:15 06/28/20 12:14 05/11/20 14:37 Ipratropium [place] (Atrovent) 500 mcg Q6H PRN HHN Shortness of Breath 05/17/20 09:00 05/22/20 08:59 05/19/20 15:02 Lansoprazole (Prevacid) 30 mg DAILY GT 05/20/20 09:00 06/01/20 08:59 05/20/20 08:25 Lorazepam (Ativan) 1 mg Q6H PRN GT For Anxiety 05/17/20 08:59 05/24/20 08:58 05/19/20 16:40 Metoprolol Tartrate (Lopressor) 25 mg Q12HR ORAL 05/17/20 21:00 08/15/20 20:59 05/20/20 20:20 Metronidazole 100 ml @ 100 mls/hr Q8HR IVPB 05/16/20 14:00 05/23/20 13:59 05/21/20 05:47 Ondansetron HCl (Zofran) 4 mg Q6H PRN IVP Nausea & Vomiting 05/16/20 09:45 06/15/20 09:44 05/16/20 10:02 Prednisone (predniSONE) 5 mg DAILY GT 05/13/20 09:00 4/5/21 08:59 05/20/20 08:25 Quetiapine Fumarate (SEROqueL) 50 mg EVERY 8 HOURS GT 05/13/20 14:00 06/11/20 11:59 05/21/20 05:47 Vitamin D (Vitamin D) 3,000 unit DAILY GT 05/18/20 09:00 06/17/20 08:59 05/20/20 08:25 Assessment/Plan Assessment/Plan 1.COVID-19 pneumonia. - Completed specific therapies - tapering steroid -> now on prednisone 5 mg QD; will dc - s/p bactrim for PJP prophylaxis 2. DVT ppx - Lovenox 3. Hypertension - On Norvasc 4. Leukocytosis; resolved - ID following - Candidemia documented 03/18/20 5. Elevated LFT; still elevated but downtrending - positive Hep C; treated in the past with IF - Abd US, Abd CT don't show evidence of cholecystitis - Lipase/amylase wnl 6. Respiratory failure -Intubated 03/28/20; s/p tracheostomy 04/25/20 -Gradually weaned off sedation 7. Left UE edema and weakness - Follow up CT confirms acute CVA 8. Pneumomediastinum - no PTX - now on T-piece 9. New onset vomiting with R sided abd pain - Abd US, abd CT - Zofran prn n/v - Dw surgery; n o indication for surgical intervention at this time 10. Yeast UTI - ID following 11. 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
--- NOTE | 2020-05-21 07:49 | General Progress Note ---
Subjective ROS Limited/Unobtainable: No Allergies: Coded Allergies: No Known Allergies (Unverified , 02/05/20) Objective Last 24 Hour Vital Signs Date Time Temp Pulse Resp B/P (MAP) Pulse Ox O2 Delivery O2 Flow Rate FiO2 05/21/20 07:00 98 Mechanical Ventilator 40 05/21/20 07:00 90 28 40 05/21/20 04:34 96 18 40 05/21/20 04:00 Mechanical Ventilator 05/21/20 04:00 95 05/21/20 04:00 40 05/21/20 04:00 97.9 95 24 149/81 (103) 100 05/21/20 03:08 95 27 40 05/21/20 00:39 91 18 40 05/21/20 00:39 98 Mechanical Ventilator 40 05/21/20 00:00 Mechanical Ventilator 05/21/20 00:00 97.7 92 22 147/88 (107) 100 05/21/20 00:00 40 05/21/20 00:00 87 05/20/20 22:14 95 29 40 05/20/20 20:54 96 29 40 05/20/20 20:20 95 131/62 05/20/20 20:00 95 05/20/20 20:00 97.7 90 29 152/85 (107) 99 05/20/20 20:00 40 05/20/20 20:00 Mechanical Ventilator 05/20/20 19:07 97 37 40 05/20/20 19:07 98 Mechanical Ventilator 40 05/20/20 18:09 96 126/69 05/20/20 17:08 96 27 40 05/20/20 16:00 40 05/20/20 16:00 89 05/20/20 16:00 Mechanical Ventilator 05/20/20 16:00 97.9 92 20 126/69 (88) 97 05/20/20 13:08 98 Mechanical Ventilator 40 05/20/20 13:08 102 36 40 05/20/20 12:00 98.1 95 22 139/77 (97) 97 05/20/20 12:00 103 05/20/20 12:00 40 05/20/20 12:00 Mechanical Ventilator 05/20/20 10:54 86 32 40 05/20/20 08:25 102 148/78 05/20/20 08:25 102 148/78 05/20/20 08:05 102 34 40 05/20/20 08:00 Mechanical Ventilator 05/20/20 08:00 40 05/20/20 08:00 103 05/20/20 08:00 97.7 99 22 148/78 (101) 98 05/20/20 07:50 10.0 40 Intake and Output 05/20/20 05/21/20 19:00 07:00 Intake Total 1050 ml 900 ml Output Total 1000 ml 650 ml Balance 50 ml 250 ml Free Water 250 ml 300 ml IV Total 200 ml Tube Feeding 600 ml 550 ml Other 50 ml Output Urine Total 1000 ml 650 ml # Bowel Movements 2 Height (Feet): 5 Height (Inches): 10.00 Weight (Pounds): 243 General Appearance: no apparent distress EENT: normal ENT inspection Neck: supple Cardiovascular: normal rate Respiratory/Chest: decreased breath sounds Abdomen: normal bowel sounds, non tender, soft Extremities: non-tender Assessment/Plan Status: stable, unchanged Assessment/Plan: no event over night has diarrhea GTF abd us>>>reviewed CT>>>reviewed repeat labs add imodium Da Quintero MD May 21, 2020 07:49
[2020-05-21 08:00] VITALS: BP 158/88
[2020-05-21] MEDS: Lansoprazole 15mg cap GT SCH (08:25)
[2020-05-21] MEDS: Vitamin D 1000 units Tab GT SCH (08:25)
[2020-05-21] MEDS: Eliquis 2.5mg tablet GT SCH ×2 (08:25→17:20)
--- NOTE | 2020-05-21 08:52 | Neurology Progress Note ---
Interim History Interim History ROS Limited/Unobtainable: No Events: pt has dc planning for Friday Objective Physical Exam Last Vital Signs Date Time Temp Pulse Resp B/P (MAP) Pulse Ox O2 Delivery O2 Flow Rate FiO2 05/21/20 08:26 95 158/88 05/21/20 08:00 40 05/21/20 08:00 97.7 22 99 05/21/20 07:00 Mechanical Ventilator 05/20/20 07:50 10.0 Neurologic Exam Objective PHYSICAL EXAMINATION: General: Pt is awake oriented and has insight to situation. Neuro: resting in bed watching television,Awake,alert oriented x4 language parameters intact, Comprehension intact PERRLA, No nystagmus with gaze. No facial droop tongue is midline. Hearing intact. No involuntary movement, bedbound gait not tested. Right upper extremity 3/5, left upper extremity unable to move, raise and squeeze my hand bilateral lower extremities 1/5. Impression/Recommendations Status: stable, unchanged Diagnostic Impression LABORATORY DATA: Reviewed. IMAGING CT Head: Negative for acute intracranial bleed or mass effect Mild frontal cortical volume loss Cervical soft tissue emphysema, also reported on recent chest radiograph 05/17: Repeat CT HEAD: Very questionable slightly more prominent right frontal deep white matter low-attenuation, if real could represent an evolving lacunar infarct rather than just routine deep white matter ischemic change. If clinically indicated, MRI may be useful to clarify Otherwise unchanged noncontrast findings, since 05/15/2020, with mild age-related volume loss and periventricular deep white matter ischemic change. No unusual contrast enhancing lesion demonstrated. Assessment and Rec's: 1. Possible Evolving Right Lacunar Stroke which could be contributing to his Left Upper Extremity weakness --> CT head Very questionable slightly more prominent right frontal deep white matter low-attenuation, if real could represent an evolving lacunar infarct rather than just routine deep white matter ischemic change. If clinically indicated, MRI may be useful- at this time MRI cannot be done here Would recommend as an outpatient. --> LUE edema, unable to raise arm --> CT Head imaging reviewed as above --> Continue PT/OT and he has dc planning for subacute d/w primary care team. continue current care 2. Covid 19 Disease, complicated --> s/p treatment. 3. 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 Smoker. 4. PNA Covid 19 Thank you for allowing us to participate in patient's care, Plan of care was reviewed with Dr. Manoj Lopez and he agrees with plan of care. Nina Zafar NP May 21, 2020 08:52
--- NOTE | 2020-05-21 10:06 | Nephrology Progress Note ---
Assessment/Plan Problem List: (1) Dehydration (2) Electrolyte imbalance (3) COVID-19 virus infection (4) Pneumonia (5) DMII (diabetes mellitus, type 2) (6) Protein malnutrition Assessment Azotemia, hypernatremia Hypoalbuminemia Staff Otilia bacteremia COVID-19 isolation, pneumonia, bilateral infiltrate Hypertension Diabetes mellitus History of smoking Plan May 21: Discussed with RN. Will discontinue Brownlee catheter. Will check for voiding. Meds reviewed. Check labs tomorrow. May 20: Status quo. Full code. Trach to vent. Feeding through GT. Labs re viewed. Medication list reviewed. Abnormal electrolyte addressed. Discussed with RN. May 19: Status quo. Labs reviewed. Medication list reviewed. Continue per consultants. Stable from renal standpoint of view. May 18: Patient seen. Low potassium addressed. Labs and medication list reviewed. Clinically improving. Continue per consultants. May 17: Patient seen. Discussed with RN Zenaida. Patient clinically improved. Liver enzymes and lower. Renal parameters stable. White blood cells within normal limit. Continue per consultants. May 16: Renal parameters stable. Acute elevation in liver function tests White BC with right-sided abdominal pain. Likely acute Karen cystitis. Continue per GI/surgery. Medication list reviewed. Continue to monitor electrolytes and renal parameters. May 15: Labs reviewed. Renal parameters stable. Patient remains full code. Is trached to vent and has PEG. May 14: Labs reviewed. Stable renal parameters. May 13: No labs drawn today. Stable from renal standpoint of view. Continue per consultants. May 12: Labs reviewed. Renal parameters stable. Status quo. Continue per co nsultants. May 11: No labs drawn today. Will check can panel tomorrow. Medication list reviewed. Patient remains full code. Continue per consultants. May 10: Labs reviewed. Serum sodium higher. Renal parameters and electrolytes stable. Medication list reviewed. Continue per consultants. May 09: Labs reviewed. Serum sodium 135. Continue to monitor electrolytes. Medication list reviewed. Continue per current management. May 08: Labs reviewed. Renal parameters stable. Medication list reviewed. Continue per consultants. May 07: No labs drawn today reviewed. Clinically stable. Medication list reviewed. Will check lab tomorrow. Continue per consultants. May 06: Labs reviewed. Renal parameters stable. Continue per consultants. May 05: Labs reviewed. Renal parameters stable. Patient is due to be transferred to SCU. Continue per consultants. Medication list reviewed. May 04: Labs reviewed. Renal parameters stable. Overall status unchanged. Remains full code. Fed through GT tube. Trach to vent. FiO2 45%. Continue per consultants. May 03: No CHEM panel drawn today. Patient clinically stable. Has trach to vent and PEG. Will check lab tomorrow. May 02: Labs reviewed. Status quo. Patient is trached and vented. Also has PEG. Is full code. Stable from renal standpoint of view. May 01: Labs reviewed. Status quo. Patient has trach connected to vent. Has PEG. He is full code. FiO2 50%. April 30: Status quo. Labs reviewed. Renal parameters stable. Medication list reviewed. April 29: Status quo. Received PEG yesterday. Has trach connected to vent. FiO2 40%. Labs reviewed. Medication list reviewed. Continue same April 28: Status quo. Labs reviewed. Renal parameters stable. Patient n.p.o. due for PEG insertion. IV changed to D5 normal saline. Continue per consultants. April 27: Status quo. Labs reviewed. Medication list reviewed. Stable from renal standpoint of view. Abnormal electrolytes addressed. April 26: Patient is now trached and connected to vent. FiO2 70%. Labs reviewed. Renal parameters stable. Medication list reviewed. Continue per consultants. April 25: Status quo. Full code. FiO2 55%. No labs drawn today. Continue to monitor electrolytes and renal parameters. Continue per consultants. April 24: Status quo. Full code. Intubated on ventilator. FiO2 65%. Labs reviewed. Renal parameters and electrolytes stable. April 23: Status unchanged. Full code. Intubated on ventilator. FiO2 75%. Labs reviewed. Renal parameters stable. Continue per consultants. April 22: Labs reviewed. Patient remains intubated on ventilator and full code. FiO2 90%. Day 77 hospitalization. Not much to add from renal standpoint of view April 21: No CHEM panel drawn today. FiO2 60%. Patient full code. Continue per consultants. April 20: Labs reviewed. Renal parameters stable. Patient remains full code. Intubated on ventilator with FiO2 currently at 70%. Continue per consultants. April 19: No labs drawn today. Remains full code on FiO2 of 100%. Continue per consultants. April 18: Status quo. Labs reviewed. Renal parameters stable. April 17: Status quo. Intubated on ventilator. Full code. Labs reviewed. Electrolytes and renal parameters stable. Continue per consultants. April 16: Girlfriend in the room. Patient awake. Intubated. Full code. Labs reviewed. Abnormal electrolyte addressed. Continue per consultants. April 15: Labs reviewed. Electrolytes and renal parameters stable. Patient full code. Continues to be intubated on ventilator. April 14: Status quo. Labs reviewed. Remains intubated on ventilator. Full code. Continue per consultants. April 13: Status quo. Labs reviewed. Renal parameters electrolytes stable. Continue per current treatment plan. April 12: On higher FiO2. Will resume Lasix daily. Continue to monitor electrolytes and renal parameters. Per consultants. April 11: FiO2 went up to 85%. Renal parameters and electrolytes reasonably well-maintained. Will monitor serum potassium. Will give IV Lasix. April 10: Status quo. Labs reviewed. Remains intubated on ventilator with FiO2 of 65%. Remains full code. Stable from renal standpoint to view. Repeat vitamin D level on April 08 pending April 09: Status quo. Labs reviewed. Stable from renal standpoint of view. Continue per consultants. April 08: Discussed with RN. Labs reviewed. Clinically improving. Requires lower PEEP. Continue per pulmonary. Continue to monitor renal parameters. April 07: Remains full code and on ventilator. Labs reviewed. Renal parameters and electrolytes stable. Continue per consultants. Blood pressure marginally improved. April 06: Full code. On ventilator. Blood pressure 80-90 systolic. IV Lasix discontinued. Free water through tube feeding ordered. Continue to monitor electrolytes and serum sodium. Down on fentanyl as possible. Discussed with PRIYANKA Brown. Clonidine patch discontinued. April 05: Status quo. Remains full code. Remains intubated. Labs reviewed. Renal parameters stable. Serum sodium 150 unchanged. Continue per consultants. April 04: Remains intubated and on ventilator. Remains full code. Labs reviewed. Serum sodium 150 unchanged. Renal parameters stable. Continue per ID and pulmonary. April 03: Intubated. On ventilator. Full code. Labs reviewed. Serum sodium 150 unchanged. Continue to monitor renal parameters. Continue per pulmonary and ID. April 02: Full code. On ventilator. Discussed with RN. Serum sodium slightly higher. Will cut down on IV Lasix. Continue per consultants. Continue to monitor renal parameters and electrolytes. April 01: Full code. Remains on ventilator. Labs reviewed. Stable from renal standpoint of view. Continue per consultants. March 31: Full code . Remains intubated on ventilator. Labs reviewed. Patient appears toxic. Discussed with RN. Maintenance IV discontinued. Medication list reviewed. Blood pressure medication stopped due to low blood pressure. Levemir insulin stopped. Continue monitor blood sugar and sliding scale insulin. March 30: Full code. On ventilator. Labs reviewed. Clonidine patch dose increased. Lasix increased. 3% saline 1 time ordered. Continue to monitor electrolytes and renal parameters. March 29: Remains full code. On mechanical ventilation. On tube feeding. Will DC TPN. Will start on maintenance IV fluid. Continue to monitor renal parameters. March 28: On BiPAP. Full code. On TPN. Labs reviewed. Discussed with pharmacy. Continue as is. Watch serum potassium. March 27: Remains on BiPAP. No chemistry panel done today. Full code. On TPN. Will check lab tomorrow. March 26: Remains on BiPAP. Remains on TPN. Labs reviewed. Electrolytes and chemistries within normal limits. Continue as is. March 25: Remains on TPN. Labs reviewed. Discussed with pharmacy. Change IV Protonix to p.o. Continue 3% saline infusion with Lasix. Patient full code. March 24: Continue to be on TPN. Labs are reviewed. Aim to collect electrolytes. Discussed with pharmacy. Continue current consultants. March 23: Continues to be on TPN. Labs reviewed. Electrolytes and chemistries all acceptable. Discussed with pharmacy. Continue current management. March 22: On TPN. Labs reviewed. Low sodium noted. 3% saline to be continued. Continue to monitor electrolytes. Discussed with pharmacy. March 21: On TPN. Labs reviewed. Continue 3% saline and Lasix for mild hyponatremia. Continue TPN as these. Discussed with pharmacy. March 20: Remains on TPN. Labs reviewed. Serum sodium higher on IV Lasix and 3% saline infusion. Continue TPN as is. Continue to monitor renal parameters and electrolytes. Discussed with Dr. Mata March 19: Remains on TPN. Labs reviewed. Serum sodium 128. Will give 3% nieves ine with IV Lasix. Continue to monitor electrolytes. No change in TPN composition. Discussed with pharmacy. March 18: Remains on TPN. Labs reviewed. Discussed with pharmacist. Will give 3 doses of IV Lasix 20 mg every 8 hours. Continue to monitor serum sodium electrolytes uric acid. White blood cells down. Continue per consultants. March 17: On TPN. Labs reviewed. Discussed with pharmacist. Sodium content increase. Continue to monitor CMP. Patient continues to have leukocytosis. March 16: On TPN. Labs reviewed. Discussed with pharmacist. Appropriate changes made. Continue to monitor electrolytes. March 15: Remains on TPN. Labs reviewed. Discussed with pharmacist. Continue per current management. March 14: Remains on TPN. Labs reviewed, stable. Vitamin D level low, replacement ordered. Continue to monitor electrolytes and renal parameters. March 13: Patient remains on TPN. Discussed with pharmacist. TPN's sodium content adjusted. Labs reviewed. Continue to monitor electrolytes. Blood pressure remains stable. Continue per consultants. March 12: Patient on TPN. Labs reviewed. CPK remains elevated. Abnormal electrolytes and high blood sugar discussed with pharmacist and TPN adjusted. Continue to monitor labs. Oral Protonix added. Ibuprofen discontinued. Can continue to monitor electrolytes and chemistries. Levemir for high blood sugar added. March 11: Patient on TPN. Labs as of 11:15 AM is still pending. Continue per current treatment plan. Will check labs and adjust TPN as needed. Continue per consultants. March 10: Patient on TPN. Labs reviewed. Electrolytes overall stable. CPK is elevated. Will monitor electrolyte, CPK level, lipid panel. Continue per consultants. Discussed with pharmacist. Discussed with RN. Nutritional evaluation noted. Previously: D5W 100 cc an hour Monitor electrolytes renal parameters TPN and Intralipid ordered Will follow Continue per consultants Dietary consult requested Subjective ROS Limited/Unobtainable: Yes Objective Objective Last 24 Hour Vital Signs Date Time Temp Pulse Resp B/P (MAP) Pulse Ox O2 Delivery O2 Flow Rate FiO2 05/21/20 09:07 81 27 40 05/21/20 08:26 95 158/88 05/21/20 08:25 95 158/88 05/21/20 08:00 98 05/21/20 08:00 40 05/21/20 08:00 97.7 95 22 158/88 (111) 99 05/21/20 08:00 Mechanical Ventilator 05/21/20 07:00 98 Mechanical Ventilator 40 05/21/20 07:00 90 28 40 05/21/20 04:34 96 18 40 05/21/20 04:00 Mechanical Ventilator 05/21/20 04:00 95 05/21/20 04:00 40 05/21/20 04:00 97.9 95 24 149/81 (103) 100 05/21/20 03:08 95 27 40 05/21/20 00:39 91 18 40 05/21/20 00:39 98 Mechanical Ventilator 40 05/21/20 00:00 Mechanical Ventilator 05/21/20 00:00 97.7 92 22 147/88 (107) 100 05/21/20 00:00 40 05/21/20 00:00 87 05/20/20 22:14 95 29 40 05/20/20 20:54 96 29 40 05/20/20 20:20 95 131/62 05/20/20 20:00 95 05/20/20 20:00 97.7 90 29 152/85 (107) 99 05/20/20 20:00 40 05/20/20 20:00 Mechanical Ventilator 05/20/20 19:07 97 37 40 05/20/20 19:07 98 Mechanical Ventilator 40 05/20/20 18:09 96 126/69 05/20/20 17:08 96 27 40 05/20/20 16:00 40 05/20/20 16:00 89 05/20/20 16:00 Mechanical Ventilator 05/20/20 16:00 97.9 92 20 126/69 (88) 97 05/20/20 13:08 98 Mechanical Ventilator 40 05/20/20 13:08 102 36 40 05/20/20 12:00 98.1 95 22 139/77 (97) 97 05/20/20 12:00 103 05/20/20 12:00 40 05/20/20 12:00 Mechanical Ventilator 05/20/20 10:54 86 32 40 Intake and Output 05/20/20 05/21/20 19:00 07:00 Intake Total 1050 ml 900 ml Output Total 1000 ml 650 ml Balance 50 ml 250 ml Free Water 250 ml 300 ml IV Total 200 ml Tube Feeding 600 ml 550 ml Other 50 ml Output Urine Total 1000 ml 650 ml # Bowel Movements 2 Current Medications Medications (Trade) Dose Ordered Sig/Dennis Route PRN Reason Start Time Stop Time Status Last Admin Dose Admin Acetaminophen (Tylenol) 650 mg Q4H PRN GT Mild Pain (Pain Scale 1-3) 05/02/20 08:45 06/01/20 08:44 05/08/20 20:28 Acetaminophen/ Hydrocodone Bitart ([place] 10/325) 1 tab Q4H PRN ORAL For Pain 05/16/20 09:45 05/23/20 09:44 05/21/20 05:55 Amlodipine Besylate (Norvasc) 2.5 mg BID GT 05/02/20 18:00 06/02/20 08:59 05/21/20 08:26 Apixaban (Eliquis) 5 mg BID GT 05/21/20 09:00 08/19/20 08:59 05/21/20 08:25 Atorvastatin Calcium (Lipitor) 40 mg BEDTIME GT 05/18/20 21:00 08/16/20 20:59 05/20/20 20:20 Cefepime HCl 2 gm/ Dextrose 100 ml @ 200 mls/hr EVERY 8 HOURS IVPB 05/15/20 22:00 05/22/20 21:59 05/21/20 05:48 Chlorhexidine Gluconate (Marlen-Hex 2%) 1 applic DAILY@2000 TOPIC 03/30/20 20:00 06/28/20 19:59 05/20/20 20:19 Famotidine (Pepcid) 20 mg Q12HR PRN GT HEARTBURN 05/08/20 13:15 06/01/20 15:14 05/13/20 08:52 Hydralazine HCl (Apresoline) 10 mg Q4H PRN IV For High Blood Pressure 03/30/20 12:15 06/28/20 12:14 05/11/20 14:37 Ipratropium [place] (Atrovent) 500 mcg Q6H PRN HHN Shortness of Breath 05/17/20 09:00 05/22/20 08:59 05/19/20 15:02 Lansoprazole (Prevacid) 30 mg DAILY GT 05/20/20 09:00 06/01/20 08:59 05/21/20 08:25 Loperamide HCl (Imodium) 2 mg Q6H PRN GT Diarrhea 05/21/20 08:00 06/20/20 07:59 05/21/20 08:32 Lorazepam (Ativan) 1 mg Q6H PRN GT For Anxiety 05/17/20 08:59 05/24/20 08:58 05/19/20 16:40 Metoprolol Tartrate (Lopressor) 25 mg Q12HR ORAL 05/17/20 21:00 08/15/20 20:59 05/21/20 08:25 Ondansetron HCl (Zofran) 4 mg Q6H PRN IVP Nausea & Vomiting 05/16/20 09:45 06/15/20 09:44 05/16/20 10:02 Quetiapine Fumarate (SEROqueL) 50 mg EVERY 8 HOURS GT 05/13/20 14:00 06/11/20 11:59 05/21/20 05:47 Vitamin D (Vitamin D) 3,000 unit DAILY GT 05/18/20 09:00 06/17/20 08:59 05/21/20 08:25 No labs drawn today Height (Feet): 5 Height (Inches): 10.00 Weight (Pounds): 243 General Appearance: no apparent distress EENT: other - Trach to vent Respiratory/Chest: decreased breath sounds Abdomen: other - PEG Genitourinary/Rectal: other - Rubin Bradshaw MD May 21, 2020 10:06
[2020-05-21 11:06] VITALS: BP 145/75
--- NOTE | 2020-05-21 12:46 | Surgery Progress Note ---
Surgery Progress Note Subjective Procedure Performed tracheostomy Symptoms: improved, tolerating diet, voiding well, passing flatus Objective Last 24 Hour Vital Signs Date Time Temp Pulse Resp B/P (MAP) Pulse Ox O2 Delivery O2 Flow Rate FiO2 05/21/20 12:00 71 05/21/20 12:00 40 05/21/20 12:00 Mechanical Ventilator 05/21/20 11:06 97.5 77 18 145/75 (98) 99 05/21/20 11:00 77 24 40 05/21/20 09:07 81 27 40 05/21/20 08:26 95 158/88 05/21/20 08:25 95 158/88 05/21/20 08:00 98 05/21/20 08:00 40 05/21/20 08:00 97.7 95 22 158/88 (111) 99 05/21/20 08:00 Mechanical Ventilator 05/21/20 07:00 98 Mechanical Ventilator 40 05/21/20 07:00 90 28 40 05/21/20 04:34 96 18 40 05/21/20 04:00 Mechanical Ventilator 05/21/20 04:00 95 05/21/20 04:00 40 05/21/20 04:00 97.9 95 24 149/81 (103) 100 05/21/20 03:08 95 27 40 05/21/20 00:39 91 18 40 05/21/20 00:39 98 Mechanical Ventilator 40 05/21/20 00:00 Mechanical Ventilator 05/21/20 00:00 97.7 92 22 147/88 (107) 100 05/21/20 00:00 40 05/21/20 00:00 87 05/20/20 22:14 95 29 40 05/20/20 20:54 96 29 40 05/20/20 20:20 95 131/62 05/20/20 20:00 95 05/20/20 20:00 97.7 90 29 152/85 (107) 99 05/20/20 20:00 40 05/20/20 20:00 Mechanical Ventilator 05/20/20 19:07 97 37 40 05/20/20 19:07 98 Mechanical Ventilator 40 05/20/20 18:09 96 126/69 05/20/20 17:08 96 27 40 05/20/20 16:00 40 05/20/20 16:00 89 05/20/20 16:00 Mechanical Ventilator 05/20/20 16:00 97.9 92 20 126/69 (88) 97 05/20/20 13:08 98 Mechanical Ventilator 40 05/20/20 13:08 102 36 40 I&O Intake and Output 05/20/20 05/21/20 19:00 07:00 Intake Total 1050 ml 900 ml Output Total 1000 ml 650 ml Balance 50 ml 250 ml Free Water 250 ml 300 ml IV Total 200 ml Tube Feeding 600 ml 550 ml Other 50 ml Output Urine Total 1000 ml 650 ml # Bowel Movements 2 Dressing: dry Wound: clean Cardiovascular: RSR Respiratory: clear Abdomen: soft, flat, non-tender, present bowel sounds, non-distended Extremities: no edema, no tenderness, no cyanosis Plan Problems: (1) Pneumonia (2) Staphylococcus aureus bacteremia (3) COVID-19 virus infection Assessment & Plan: prior now neg improving (4) Chest pain (5) Hypertension (6) Dehydration (7) Electrolyte imbalance (8) DMII (diabetes mellitus, type 2) (9) Protein malnutrition Assessment & Plan: DAILY ESTIMATED NEEDS: Needs based on Critical care, wound 81kg abw 22-28 kcals/kg 4064-8734 total kcals 1.25-2 g protein/kg 101-162 g total protein 25-30 mL/kg 7344-1796 total fluid mLs NUTRITION DIAGNOSIS: * Increased kcal/prot/micronutrients needs R/T wound healing as evidenced by pt w/ new multiple pressure injuries, 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 * Inadequate oral intake R/T clinical and respiratory status as evidenced by COVID-19 ++, on continuous BIPAP, prolonged meal refusals, pt is now on TPN, pt orally intubated (03/28), s/p trach placement (04/26), and s/p PEG placement (04/27), now on GT feeds. * Decreased sodium and fat needs r/t HTN and obesity as evidenced by pt w/ cardiac history, elev BP (159/98-> now improved, on BP meds and diuretics), BMI >30, obese per guidelines. (INACTIVE) CURRENT TF:Glucerna 1.5 goal of 50 + Prosource BID ENTERAL NUTRITION RECOMMENDATIONS: Glucerna 1.5 @ 50ml/hr x 24 hrs + Prosource 1pkt BID to provide 1200ml, 1800kcal, 99g +22g prot (121g total prot), 926ml free water * Maintain current TF order * Con't Prosource 1pkt BID (additional 22g prot) to better meet est prot needs. ADDITIONAL RECOMMENDATIONS: 1) Maintain calibrated bedscale wts 2) Monitor BGs closely w/ Solumedrol (POC glu wnl at this time) 3) Monitor lytes, replete as needed 4) Monitor TF tolerance: PEG placed 04/28, cont to increase TF to goal as tolerated 5) Wound healing: Add Michael BID (mix w/ 2-4oz of water) TF @ goal provides 100% RDI, add Vit C 500mg QD, ZnSO4 220mg [id number] (10) Respiratory insufficiency Assessment & Plan: 64-year-old male with respiratory insufficiency intubated in an intensive care unit. Patient has been unable to safely wean off ventilatory support. Surgery called to evaluate for tracheostomy. After careful evaluation patient is a candidate for tracheostomy. In the meantime will obtain consent. If consent obtained will proceed with scheduling. Thank you for your participation's care will follow recommendations improving trach okay agitated weaning sedation no n/v cont weaning transition to oral meds via g tube get off drips improving downgraded weaning well more alert and awake responsive will need placement trach collar consideration pending sub acute placement okay for placement cont trach care leave sutures in place as dissolvable recovering well fully awake now tolerating diet d/c planning awaiting placement (11) LFT elevation Assessment & Plan: leukocytosis lfts elevated no n/v US ordered trend labs abx US noted labs improved hold anticoag cont tf trend labs pain improved no n/v/f/c labs improved wbc resolved lft's trending down hold on procedure okay to resume anticoag ct head noted neuro input Booker Rausch May 21, 2020 12:46
[2020-05-21] MEDS ORDERED: Tubing IV Secondary IV ONE (14:07)
[2020-05-21] MEDS ORDERED: NS 275ml ONE (14:07)
[2020-05-21 15:52] VITALS: BP 154/79
--- NOTE | 2020-05-21 18:13 | Infectious Diseases Prog Note ---
Assessment/Plan Assessment/Plan ASSESSMENT AND PLAN: 1. hx staph aureus bacteremia/mssa - s/p tx covid-19 +, hypoxia, sob, chest x-ray worse, ? PE, ? HCAP/aspiration pna trach/vent, joseph pneumomediastinum/subcutaneous emphysema, ? new hcap/aspiration pna e.coli uti, urine yeast likely a colonizer, sepsis, leukocytosis possible cholecystitis, abdominal pain, elevated lft's, abdominal CT and US noted 1/4 diphtheroids blood culture likely contaminant, f/u blood cultures ordered - cefepime, flagyl - day # 7/7, discontinue vancomycin - sputum culture with yeast - likely colonizer, surveillance blood cultures negative - monitor labs and chest x-ray - surgery f/u and work-up - pulmonary f/u 2. covid-19 isolation removed - covid-19 recovered 3. Hypertension history. Blood pressure treatment primary care team. 4. Elevated blood sugars. Blood sugar treatment per primary care team. 5. No known drug allergies. 6. Social history is positive for smoking. 7. Family history is noncontributory. 8. MAR was noted. 9. Case was discussed with RN. 10. Continue treatment per primary consultants. Subjective Constitutional: Denies: fever Respiratory: Reports: shortness of breath Cardiovascular: Denies: chest pain Gastrointestinal/Abdominal: Denies: nausea, vomiting, diarrhea Genitourinary: Reports: other - + joseph Neurologic: Denies: headache Psychiatric: Denies: depression Skin: Denies: rash Hematologic: Denies: bleeding Musculoskeletal: Denies: pain Allergies: Coded Allergies: No Known Allergies (Unverified , 02/05/20) Objective Last 24 Hour Vital Signs Date Time Temp Pulse Resp B/P (MAP) Pulse Ox O2 Delivery O2 Flow Rate FiO2 05/21/20 17:20 81 154/79 05/21/20 17:08 81 22 40 05/21/20 16:00 40 05/21/20 16:00 91 05/21/20 16:00 Mechanical Ventilator 05/21/20 15:52 98.1 81 20 154/79 (104) 98 05/21/20 15:00 80 19 40 05/21/20 13:08 99 Mechanical Ventilator 40 05/21/20 13:08 79 31 40 05/21/20 12:00 71 05/21/20 12:00 40 05/21/20 12:00 Mechanical Ventilator 05/21/20 11:06 97.5 77 18 145/75 (98) 99 05/21/20 11:00 77 24 40 05/21/20 09:07 81 27 40 05/21/20 08:26 95 158/88 05/21/20 08:25 95 158/88 05/21/20 08:00 98 05/21/20 08:00 40 05/21/20 08:00 97.7 95 22 158/88 (111) 99 05/21/20 08:00 Mechanical Ventilator 05/21/20 07:00 98 Mechanical Ventilator 40 05/21/20 07:00 90 28 40 05/21/20 04:34 96 18 40 05/21/20 04:00 Mechanical Ventilator 05/21/20 04:00 95 05/21/20 04:00 40 05/21/20 04:00 97.9 95 24 149/81 (103) 100 05/21/20 03:08 95 27 40 05/21/20 00:39 91 18 40 05/21/20 00:39 98 Mechanical Ventilator 40 05/21/20 00:00 Mechanical Ventilator 05/21/20 00:00 97.7 92 22 147/88 (107) 100 05/21/20 00:00 40 05/21/20 00:00 87 05/20/20 22:14 95 29 40 05/20/20 20:54 96 29 40 05/20/20 20:20 95 131/62 05/20/20 20:00 95 05/20/20 20:00 97.7 90 29 152/85 (107) 99 05/20/20 20:00 40 05/20/20 20:00 Mechanical Ventilator 05/20/20 19:07 97 37 40 05/20/20 19:07 98 Mechanical Ventilator 40 05/20/20 18:09 96 126/69 Height (Feet): 5 Height (Inches): 10.00 Weight (Pounds): 243 General Appearance: no acute distress HEENT: normocephalic, atraumatic, anicteric, mucous membranes moist Respiratory/Chest: crackles/rales, rhonchi - bilaterally, other - stable on vent Cardiovascular: normal rate, regular rhythm, no gallop/murmur Abdomen: normal bowel sounds, soft, non tender, no organomegaly, non distended Genitourinary: other - + joseph Extremities: no cyanosis Skin: no rash Neurologic/Psychiatric: 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 Note nonvisualization of the left hepatic lobe, spleen, pancreas, abdominal aorta Gallbladder sludge. Negative for biliary ductal dilatation Unremarkable kidneys Liver demonstrates diffusely increased echogenicity, consistent with diffuse hepatocellular disease, most likely fatty change. CT chest: IMPRESSION: There are mild subpleural ground-glass and consolidating infiltrates in the dependent portions of both lower lobes and to lesser degree the upper lobes consistent with bilateral pneumonia. The infiltrates are typical for Covid 19. No evidence of pulmonary embolus. CT abdomen and pelvis: IMPRESSION: 1. Scattered hepatic hypodense lesions, too small to characterize on this examination without intravenous contrast. 2. Colonic diverticulosis without evidence of acute diverticulitis. 3. Scattered enlarged mesenteric lymph nodes, presumably reactive. teral pneumonia. The infiltrates are typical for Covid 19. No evidence of pulmonary embolus. Chest x-ray - 12/19/19 - Indication: Shortness of breath Technique: One view of the chest Comparison: 02/17/2020 Findings: Interim worsening of bilateral infiltrates, particularly on the right. The heart is borderline enlarged. The pleural spaces are clear. Left arm PICC is again demonstrated Impression: Worsening bilateral infiltrates over one day, likely pneumonia CT chest - 02/19/20 - IMPRESSION: Increased extensive patchy ground-glass opacities and densities throughout the lungs, suggestive of Covid 19 infection. Chest x-ray 02/23/20 - Procedure: XRAY Chest 1v As Indication: Reason For Exam: INFECT Technique: One view of the chest Comparison: 02/20/2020 Findings: Allowing for differences in exposure technique, bilateral mid and lower lung infiltrates are probably unchanged. The heart size is normal. The pleural spaces are clear. Impression: Unchanged, over 4 days, findings as above. Chest x-ray - 02/25/20 - FINDINGS: Lungs: Interval slightly worsening bilateral airspace disease. Pleural space: Unremarkable. No pneumothorax. Heart: Unremarkable. No cardiomegaly. Mediastinum: Unremarkable. Bones/joints: Unremarkable. IMPRESSION: Interval slightly worsening bilateral airspace disease. Chest x-ray - 03/02/20 - Procedure: XRAY Chest 1v Indication: Shortness of breath Technique: One view of the chest Comparison: 02/25/2020 Findings: Bilateral interstitial and airspace infiltrates are unchanged. The heart size is normal. Left arm PICC is again demonstrated Impression: Unchanged, over one day, findings as above. Chest x-ray - 03/06/20 - Procedure: XRAY Chest 1v Indication: Shortness of breath Technique: One view of the chest Comparison: 03/02/2020 Findings: Bilateral infiltrates are unchanged. Normal heart size. Pleural spaces are clear Chest x-ray - 03/12/10 - Impression: COMPARISON: Chest radiograph March 06, 2020. FINDINGS/IMPRESSION: Improving basilar infiltrates. Follow chest radiograph recommended. The upper lung finley are clear. No pneumothorax. Stable cardiomegaly. Stable left upper extremity PICC line. anged, over 4 days, findings as above. Chest x-ray - 03/17/20 - Procedure: XRAY Chest 1v Indication: Shortness of breath Technique: One view of the chest Comparison: 03/12/2020 Findings: Left arm PICC is again demonstrated. Infiltrates are unchanged. The heart size is upper limits of normal. Impression: Unchanged, over 5 days, findings as above. Abdominal US - IMPRESSION: 1. Gallbladder is normal. 2. Hepatic steatosis. 3. 1.7 cm cyst right kidney. Impression. Chest x-ray - Procedure: XRAY Chest 1v Indication: Shortness of breath Technique: One view of the chest Comparison: 03/17/2020 Findings: Bilateral right greater than left infiltrates again demonstrated. The heart size is normal. There is a left arm PICC in good position. Impression: Unchanged, over 5 days, findings as above. Chest x-ray - 03/29/20 - Procedure: XRAY Chest 1v Indication: Cough Technique: One view of the chest Comparison: 03/28/2020 Findings: Bilateral infiltrates are unchanged or slightly worse, allowing for differences in exposure technique. The pleural spaces are clear. The heart size is normal. Stable satisfactory position of endotracheal tube, left arm PICC. Orogastric tube has retracted somewhat the position remains satisfactory. Impression: Stable to slightly worse bilateral infiltrates. Otherwise little warp changer one day Chest x-ray - 03/31/20 - Procedure: XRAY Chest 1v Indication: Post endotracheal tube repositioning Technique: One view of the chest Comparison: 3 hours earlier Findings: Interim advancement of endotracheal tube, tip projecting approximately 5 cm above the sunny. Interim advancement of orogastric tube as well. Bilateral infiltrates are unchanged. Left arm PICC remains Impression: Improved and now satisfactory tube positions as described. ICU nurse Meave notified at the time of interpretation Chest x-ray - 04/02/20 - COMPARISON: Chest x-rays dated 03/31/20 and 03/12/20. FINDINGS: Lungs: No significant change in bilateral prominent interstitial markings. The lungs are otherwise clear without focal consolidation. Pleural space: Unremarkable. The costophrenic angles are sharp. No visible pneumothorax. Heart: Unremarkable. No cardiomegaly. Mediastinum: Unremarkable. Bones/joints: Unremarkable. Tubes, lines and devices: Endotracheal tube tip 6.5 cm above the sunny. NG tube tip in the distal stomach. Telemetry leads overlie the thorax. IMPRESSION: No significant change in bilateral prominent interstitial markings. Procedure: XRAY Chest 1v Procedure: XRAY Chest 1v Reason for study: Shortness of breath 04/06/20 - Comparison films: 04/02/2020. FINDINGS: Endotracheal tube and NG tube remain in place. There is worsening of right basilar infiltrates. Some haziness in left lung base unchanged. Cardiac and mediastinal silhouette are within normal limits. CP angles are sharp. The bony thorax appear unremarkable. IMPRESSION: Worsening of right basilar infiltrate. Chest x-ray - 04/09/20 - Procedure: XRAY Chest 1v FILM CXR 1 VIEW INDICATION: Infection COMPARISON: April 05, 2020 FINDINGS: Single frontal view demonstrates a normal cardiomediastinal silhouette. Endotracheal tube in place with tip above the sunny. Elevation of the right hemidiaphragm. Interstitial prominence with bilateral lower lobe infiltrates. Lung bases appear worse from the prior exam. Small right effusion. Right-sided PICC line with tip in the superior vena cava. Enteric tube in place. IMPRESSION: Interstitial prominence and bilateral lower lobe pneumonia with worsening appearance from the prior study. Chest x-ray - 04/12/20 - Procedure: XRAY Chest 1v Indication: Shortness of breath Technique: One view of the chest Comparison: 04/09/2020 Findings: Stable satisfactory tube and line positions. Bilateral infiltrates have worsened slightly since prior study. The heart size is normal. Impression: Worsening bilateral infiltrates, over 3 days Chest x-ray - 04/15/20 - COMPARISON: 02/11/21. FINDINGS: Lungs: There is been no significant change in mild to moderate patchy diffuse bilateral alveolar infiltrates which are most prominent in the lung bases. Pleural space: Unremarkable. No pneumothorax. Heart: Unremarkable. No cardiomegaly. Mediastinum: Unremarkable. Bones/joints: Unremarkable. Tubes, lines and devices: There is an endotracheal tube, right-sided PICC line and NG tube in good position. IMPRESSION: There is been no significant change in mild to moderate patchy diffuse bilateral alveolar infiltrates which are most prominent in the lung bases. Chest x-ray - 04/18/20 - Procedure: XRAY Chest 1v Indication: Cough Technique: One view of the chest Comparison: 04/15/2020 Findings: Less optimal inspiration currently than previously. Stable satisfactory positions of endotracheal and orogastric tubes and right arm PICC. Bilateral infiltrates are again demonstrated, unchanged. Impression: Unchanged, over 3 days, findings as above. Chest x-ray - 04/21/20 - Procedure: XRAY Chest 1v Indication: Dyspnea Technique: One view of the chest Comparison: 04/18/2020 Findings: Stable tube and line positions. Bilateral infiltrates are unchanged Impression: Unchanged, over one day, findings as above. Procedure: XRAY Chest 1v Procedure: XRAY Chest 1v Reason for study: Reason For Exam: SOB Chest x-ray - 04/25/20 - Comparison films: 04/21/2020. FINDINGS: Endotracheal tube, NG tube and right PICC line remain in place. Vascularity is normal. Bilateral infiltrates are unchanged. Cardiac and mediastinal silhouette are within normal limits. CP angles are sharp. The bony thorax appear unremarkable. IMPRESSION: NO SIGNIFICANT CHANGE COMPARED TO PREVIOUS EXAM. Chest x-rasy - 04/30/20 - FINDINGS: Lungs: Bilateral patchy pulmonary opacities concerning for pneumonia, not significantly changed compared to the prior chest x-ray. Pleural space: Unremarkable. The costophrenic angles are sharp. No visible pneumothorax. Heart: Unremarkable. No cardiomegaly. Mediastinum: Unremarkable. Bones/joints: Unremarkable. Tubes, lines and devices: Tracheostomy tube in place, with expected positioning. Telemetry leads overlie the thorax. Right arm PICC with catheter tip in the SVC region. IMPRESSION: Bilateral patchy pulmonary opacities concerning for pneumonia, not significantly changed compared to the prior chest x-ray. Chest x-ray - 05/12/20 - Procedure: XRAY Chest 1v Procedure: XRAY Chest 1v Reason for study: Shortness of breath. Comparison films: 04/30/2020. FINDINGS: Tracheostomy and right PICC line remain in place. There is new pneumomediastinum as well as subcutaneous cutaneous emphysema noted in the right supraclavicular region. Slight increase in diffuse bilateral alveolar densities likely worsening infiltrates and/or edema. Cardiac and mediastinal silhouette are within normal limits. CP angles are sharp. The bony thorax appear unremarkable. IMPRESSION: Slight worsening of bilateral basilar densities, infiltrates and/or edema. New pneumomediastinum and subcutaneous cutaneous air in the right s upraclavicular region. Chest x-rasy - 05/14/20 - Procedure: XRAY Chest 1v EXAM: XR Chest, 1 View CLINICAL HISTORY: INFECT TECHNIQUE: Frontal view of the chest. COMPARISON: 05/12/20 FINDINGS: Since the prior examination, there is marked increase in pneumomediastinum as well as soft tissue gas to the chest wall and supraclavicular regions, right greater than left. Redemonstrated appropriately positioned tracheostomy. Tip of right arm PICC is in the SVC. No clear pneumothorax given limitations due to overlying chest wall gas. Extensive bilateral interstitial and airspace infiltrates appear similar to the prior examination, but suspect slight progression in the left upper lobe. IMPRESSION: Increasing pneumomediastinum and chest wall gas. Extensive bilateral pulmonary infiltrates, progressed in the left upper lobe. CT abdomen an pelvis: Impression: Distended gallbladder. Somewhat dense material within the bladder lumen probably represents sludge. However, the possibility that this represents blood should also be considered given the relatively high attenuation. There is also biliary ductal dilatation, without definite downstream obstructive lesion. MRCP may be useful for better characterization Right renal lesion, demonstrating soft tissue attenuation. Possibly a hemorrhagic cyst given cystic appearance on prior study. However, the possibly of solid neoplasm should also be considered. Extensive bilateral basilar pulmonary parenchymal opacification likely related to ongoing pneumonia Small amount of free intraperitoneal fluid Subcutaneous emphysema and pneumomediastinum, also reported on prior chest radiograph Clinical history diverticulosis Gastrostomy Hepatic and left renal cysts Joseph catheter Findings discussed by phone with Dr. Rausch at the time of interpretation Abdominal US: Impression: Very limited exam as described. Note nonvisualization of the left hepatic lobe, spleen, pancreas, abdominal aorta Gallbladder sludge. Negative for biliary ductal dilatation Unremarkable kidneys Liver demonstrates diffusely increased echogenicity, consistent with diffuse hepatocellular disease, most likely fatty change. Chest x-ray - 05/17/20 - Procedure: XRAY Chest 1v Indication: Shortness of breath Technique: One view of the chest Comparison: 05/17/2020 Findings: Subcutaneous emphysema and cervical emphysema appears slightly improved. Pneumomediastinum persists. Bilateral infiltrates are probably unchanged, allowing for lower lung volumes on the current exam. Tracheostomy, right arm PICC are again demonstrated. The heart size is normal. Impression: Slightly decreased subcutaneous emphysema. Otherwise little warp changer one day Chest x-ray - 05/2020 - COMPARISON: 05/18/2020 FINDINGS: Lungs: Unchanged extensive interstitial and airspace opacities throughout the lungs. Pleural space: No pleural effusion. No pneumothorax. Heart: Unremarkable. No cardiomegaly. Soft tissues: Redemonstrated but improved subcutaneous emphysema. Tubes, lines and devices: Tracheostomy cannula and right upper extremity PICC unchanged. IMPRESSION: Unchanged appearance of the lungs. No new acute abnormality. Decreasing subcutaneous emphysema. Microbiology Date/Time Source Procedure Growth Status 05/21/20 06:05 Nasopharynx SARS-CoV-2 Antigen (Rapid)(HAMLET) - Final Complete 05/16/20 20:00 Blood Blood Culture - Preliminary NO GROWTH AFTER 4 DAYS Resulted 05/14/20 07:00 Urine,Clean Catch Urine Culture - Final Escherichia Coli Kat Parapsilosis Complete 04/14/20 16:35 Stool Clostridium difficile Toxin Assay - Final Complete Microbiology Date/Time Source Procedure Growth Status 05/21/20 06:05 Nasopharynx SARS-CoV-2 Antigen (Rapid)(HAMLET) - Final Complete Labs Test 05/19/20 08:50 05/19/20 10:30 05/20/20 07:30 Sodium Level 139 MMOL/L (136-145) 139 MMOL/L (136-145) Potassium Level 3.9 MMOL/L (3.5-5.1) 3.9 MMOL/L (3.5-5.1) Chloride Level 101 MMOL/L (98-107) 101 MMOL/L (98-107) Carbon Dioxide Level 31 MMOL/L (21-32) 34 MMOL/L (21-32) Anion Gap 7 mmol/L (5-15) 4 mmol/L (5-15) Blood Urea Nitrogen 14 mg/dL (7-18) 16 mg/dL (7-18) Creatinine 0.4 MG/DL (0.55-1.30) 0.3 MG/DL (0.55-1.30) Estimat Glomerular Filtration Rate > 60 mL/min (>60) > 60 mL/min (>60) Glucose Level 139 MG/DL (74-106) 113 MG/DL (74-106) Calcium Level 9.3 MG/DL (8.5-10.1) 8.7 MG/DL (8.5-10.1) Phosphorus Level 3.7 MG/DL (2.5-4.9) Magnesium Level 2.0 MG/DL (1.8-2.4) Total Bilirubin 0.4 MG/DL (0.2-1.0) Aspartate Amino Transf (AST/SGOT) 21 U/L (15-37) Alanine Aminotransferase (ALT/SGPT) 154 U/L (12-78) Alkaline Phosphatase 372 U/L (46-116) C-Reactive Protein, Quantitative 5.6 mg/dL (0.00-0.90) Total Protein 7.3 G/DL (6.4-8.2) Albumin 2.9 G/DL (3.4-5.0) Globulin 4.4 g/dL Albumin/Globulin Ratio 0.7 (1.0-2.7) White Blood Count 12.2 K/UL (4.8-10.8) 8.7 K/UL (4.8-10.8) Red Blood Count 3.70 M/UL (4.70-6.10) 3.19 M/UL (4.70-6.10) Hemoglobin 10.4 G/DL (14.2-18.0) 9.2 G/DL (14.2-18.0) Hematocrit 33.9 % (42.0-52.0) 28.5 % (42.0-52.0) Mean Corpuscular Volume 91 FL (80-99) 89 FL (80-99) Mean Corpuscular Hemoglobin 28.0 PG (27.0-31.0) 28.9 PG (27.0-31.0) Mean Corpuscular Hemoglobin Concent 30.6 G/DL (32.0-36.0) 32.4 G/DL (32.0-36.0) Red Cell Distribution Width 15.7 % (11.6-14.8) 15.1 % (11.6-14.8) Platelet Count 433 K/UL (150-450) 366 K/UL (150-450) Mean Platelet Volume 6.7 FL (6.5-10.1) 6.1 FL (6.5-10.1) Neutrophils (%) (Auto) % (45.0-75.0) 75.9 % (45.0-75.0) Lymphocytes (%) (Auto) % (20.0-45.0) 11.5 % (20.0-45.0) Monocytes (%) (Auto) % (1.0-10.0) 8.5 % (1.0-10.0) Eosinophils (%) (Auto) % (0.0-3.0) 2.9 % (0.0-3.0) Basophils (%) (Auto) % (0.0-2.0) 1.3 % (0.0-2.0) Differential Total Cells Counted 100 Neutrophils % (Manual) 87 % (45-75) Lymphocytes % (Manual) 5 % (20-45) Monocytes % (Manual) 7 % (1-10) Eosinophils % (Manual) 1 % (0-3) Basophils % (Manual) 0 % (0-2) Band Neutrophils 0 % (0-8) Platelet Estimate Adequate Platelet Morphology Normal Polychromasia 1+ Hypochromasia 1+ Anisocytosis 1+ Vancomycin Level Trough 21.1 ug/mL (5.0-12.0) Pro-B-Type Natriuretic Peptide 407 pg/mL (0-125) Current Medications Medications (Trade) Dose Ordered Sig/Dennis Route PRN Reason Start Time Stop Time Status Last Admin Dose Admin Acetaminophen (Tylenol) 650 mg Q4H PRN GT Mild Pain (Pain Scale 1-3) 05/02/20 08:45 06/01/20 08:44 05/08/20 20:28 Acetaminophen/ Hydrocodone Bitart ([place] 10/325) 1 tab Q4H PRN ORAL For Pain 05/16/20 09:45 05/23/20 09:44 05/21/20 14:45 Amlodipine Besylate (Norvasc) 2.5 mg BID GT 05/02/20 18:00 06/02/20 08:59 05/21/20 17:20 Apixaban (Eliquis) 5 mg BID GT 05/21/20 09:00 08/19/20 08:59 05/21/20 17:20 Atorvastatin Calcium (Lipitor) 40 mg BEDTIME GT 05/18/20 21:00 08/16/20 20:59 05/20/20 20:20 Cefepime HCl 2 gm/ Dextrose 100 ml @ 200 mls/hr EVERY 8 HOURS IVPB 05/15/20 22:00 05/22/20 21:59 05/21/20 14:33 Chlorhexidine Gluconate (Marlen-Hex 2%) 1 applic DAILY@1999 TOPIC 03/30/20 20:00 06/28/20 19:59 05/20/20 20:19 Famotidine (Pepcid) 20 mg Q12HR PRN GT HEARTBURN 05/08/20 13:15 06/01/20 15:14 05/13/20 08:52 Hydralazine HCl (Apresoline) 10 mg Q4H PRN IV For High Blood Pressure 03/30/20 12:15 06/28/20 12:14 05/11/20 14:37 Ipratropium [place] (Atrovent) 500 mcg Q6H PRN HHN Shortness of Breath 05/17/20 09:00 05/24/20 08:59 05/19/20 15:02 Lansoprazole (Prevacid) 30 mg DAILY GT 05/20/20 09:00 06/01/20 08:59 05/21/20 08:25 Loperamide HCl (Imodium) 2 mg Q6H PRN GT Diarrhea 05/21/20 08:00 06/20/20 07:59 05/21/20 08:32 Lorazepam (Ativan) 1 mg Q6H PRN GT For Anxiety 05/17/20 08:59 05/24/20 08:58 05/19/20 16:40 Metoprolol Tartrate (Lopressor) 25 mg Q12HR ORAL 05/17/20 21:00 08/15/20 20:59 05/21/20 08:25 Ondansetron HCl (Zofran) 4 mg Q6H PRN IVP Nausea & Vomiting 05/16/20 09:45 06/15/20 09:44 05/16/20 10:02 Quetiapine Fumarate (SEROqueL) 50 mg EVERY 8 HOURS GT 05/13/20 14:00 06/11/20 11:59 05/21/20 14:33 Vitamin D (Vitamin D) 3,000 unit DAILY GT 05/18/20 09:00 06/17/20 08:59 05/21/20 08:25 Kisha Salazar MD May 21, 2020 18:13
--- NOTE | 2020-05-21 19:32 | NUR ---
NURSE HAND-OFF REPORT: Important Events on Shift: NA Patient Status: stable Diet: GT as ordered Pending Orders: na Pending Results/Labs:na Pending notification:na Latest Vital Signs: Temperature 98.1 , Pulse 96 , B/P 154 /79 , Respiratory Rate 26 , O2 SAT 96 , Mechanical Ventilator, O2 Flow Rate 10.0 . Vital Sign Comment: stable EKG Rhythm: Sinus Rhythm Rhythm change?: N MD Notified?: -Dr. Chito INTERIANO Response: No New Orders Received Latest Hassan Fall Score: 35 Fall Risk: Medium Risk Safety Measures: Call light Within Reach, Bed Alarm Zone 1, Side Rails Side Rails x3, Bed position Low and Locked. Fall Precautions: Yellow Socks Yellow Gown Door Sign Patient Fall Education Report given to PRIYANKA Lemos.
--- NOTE | 2020-05-21 19:50 | NUR ---
NURSE NOTES: Important Events on Shift: Received report from Aminta Ferguson RN. Pt in bed, awake, aao x 4, denies pain. No s/s of pain or resp distress noted at this time. Vent to CPAP 5, PEEP 5, Fio2 40%, Shiley 8. WIll continue plan of care and close monitoring. Patient Status: full code Diet: Glucerna 1.5 @ 50ml/hr Pending Orders: DC to [facility]. in AM Pending Results/Labs: AM labs Pending MD notification: none Latest Vital Signs: Temperature 96.3 , Pulse 102 , B/P 153 /89 , Respiratory Rate 28 , O2 SAT 98 , Mechanical Ventilator, O2 Flow Rate 10.0 . Vital Sign Comment: stable throughout shift per report. EKG Rhythm: Sinus Rhythm Rhythm change?: N MD Notified?: - MD Response: - Latest Hassan Fall Score: 35 Fall Risk: Medium Risk Safety Measures: Call light Within Reach, Bed Alarm Zone 1, Side Rails Side Rails x3, Bed position Low and Locked. Fall Precautions: Yellow Socks, Yellow Gown, Door Sign, Patient Fall Education
[2020-05-21 20:00] VITALS: BP 158/88
[2020-05-21] MEDS: Dyna-Hex 2% Top Sol 2oz TOPIC SCH (21:03)
[2020-05-21] MEDS: Atorvastatin 20mg tab GT SCH (21:04)
[2020-05-22] VITALS (7 sets, daily range): BP systolic 146–185; BP diastolic 84–100
[2020-05-22] MEDS: LORazepam 1mg tab GT PRN ×4 (01:31→23:10)
--- NOTE | 2020-05-22 07:14 | NUR ---
NURSE HAND-OFF REPORT: Important Events on Shift: none Patient Status: full code Diet: Glucerna 1.5 @ 55ml/hr Pending Orders: DC to SNF Pending Results/Labs: AM labs Pending MD notification: none Latest Vital Signs: Temperature 96.3 , Pulse 102 , B/P 153 /89 , Respiratory Rate 28 , O2 SAT 98 , Mechanical Ventilator, O2 Flow Rate 10.0 . Vital Sign Comment: stable throughout shift EKG Rhythm: Sinus Rhythm Rhythm change?: N MD Notified?: -Dr. Chito INTERIANO Response: No New Orders Received Latest Hassan Fall Score: 35 Fall Risk: Medium Risk Safety Measures: Call light Within Reach, Bed Alarm Zone 1, Side Rails Side Rails x3, Bed position Low and Locked. Fall Precautions: Yellow Socks, Yellow Gown, Door Sign, Patient Fall Education Report given to Zenaida Blackwood RN
[2020-05-22 07:30] LABS: BASOPHILS % (AUTO) 1.3 % (0.0-2.0); EOSINOPHILS % (AUTO) 1.7 % (0.0-3.0); HEMATOCRIT 34.1 % (42.0-52.0); HEMOGLOBIN 10.3 G/DL (14.2-18.0); LYMPHOCYTES % (AUTO) 10.2 % (20.0-45.0); MEAN CORPUSCULAR VOLUME 91 FL (80-99); MONOCYTES % (AUTO) 7.5 % (1.0-10.0); NEUTROPHILS % (AUTO) 79.3 % (45.0-75.0); PLATELET COUNT 420 K/UL (150-450); RED BLOOD COUNT 3.74 M/UL (4.70-6.10); RED CELL DISTRIBUTION WIDTH 15.3 % (11.6-14.8); WHITE BLOOD COUNT 10.4 K/UL (4.8-10.8)
--- NOTE | 2020-05-22 07:30 | NUR ---
NURSE NOTES: Received pt from PRIYANKA Souza, pt is awake and alert, pt has trach to clotilde CPAP FIO2 40% PEEP 5 PS 5, Pt has g tube in place is working well, pt has condom cath in place is working well. pt has PICC ALBERT is SL. no pain noted at this time. All needs attended, bed is locked and is in the lowest position, call light within easy reach. will continue to monitor.
[2020-05-22 07:48] LABS: ALANINE AMINOTRANSFERASE 59 U/L (12-78); ALBUMIN 2.7 G/DL (3.4-5.0); ALBUMIN/GLOBULIN RATIO 0.7 (1.0-2.7); ALKALINE PHOSPHATASE 201 U/L (46-116); ANION GAP 3 mmol/L (5-15); ASPARTATE AMINO TRANSFERASE 18 U/L (15-37); BILIRUBIN,TOTAL 0.3 MG/DL (0.2-1.0); BLOOD UREA NITROGEN 16 mg/dL (7-18); CALCIUM 8.8 MG/DL (8.5-10.1); CARBON DIOXIDE 36 MMOL/L (21-32); CHLORIDE 100 MMOL/L (98-107); CREATININE 0.4 MG/DL (0.55-1.30); PHOSPHORUS 3.3 MG/DL (2.5-4.9); POTASSIUM 4.1 MMOL/L (3.5-5.1); SODIUM 139 MMOL/L (136-145)
--- NOTE | 2020-05-22 08:04 | General Progress Note ---
Subjective ROS Limited/Unobtainable: No Allergies: Coded Allergies: No Known Allergies (Unverified , 02/05/20) Objective Last 24 Hour Vital Signs Date Time Temp Pulse Resp B/P (MAP) Pulse Ox O2 Delivery O2 Flow Rate FiO2 05/22/20 04:33 102 28 40 05/22/20 04:00 92 05/22/20 04:00 96.3 93 17 153/89 (110) 98 05/22/20 03:30 103 29 40 05/22/20 03:26 40 05/22/20 03:24 Mechanical Ventilator 05/22/20 02:01 91 21 146/82 97 05/22/20 01:31 91 21 158/82 96 05/22/20 01:30 Mechanical Ventilator 40 05/22/20 01:30 93 26 40 05/22/20 00:00 40 05/22/20 00:00 Mechanical Ventilator 05/22/20 00:00 75 05/22/20 00:00 98.0 88 20 146/84 (104) 98 05/21/20 23:30 91 21 40 05/21/20 21:58 98.1 05/21/20 21:37 92 36 40 05/21/20 21:03 98 158/82 05/21/20 20:00 97.7 91 20 158/88 (111) 98 05/21/20 20:00 93 05/21/20 20:00 Mechanical Ventilator 05/21/20 19:25 96 Mechanical Ventilator 40 05/21/20 19:14 96 26 40 05/21/20 17:20 81 154/79 05/21/20 17:08 81 22 40 05/21/20 16:00 40 05/21/20 16:00 91 05/21/20 16:00 Mechanical Ventilator 05/21/20 15:52 98.1 81 20 154/79 (104) 98 05/21/20 15:00 80 19 40 05/21/20 13:08 99 Mechanical Ventilator 40 05/21/20 13:08 79 31 40 05/21/20 12:00 71 05/21/20 12:00 40 05/21/20 12:00 Mechanical Ventilator 05/21/20 11:06 97.5 77 18 145/75 (98) 99 05/21/20 11:00 77 24 40 05/21/20 09:07 81 27 40 05/21/20 08:26 95 158/88 05/21/20 08:25 95 158/88 Intake and Output 05/21/20 05/22/20 19:00 07:00 Intake Total 850 ml 50 ml Output Total 1100 ml 800 ml Balance -250 ml -750 ml Free Water 150 ml IV Total 100 ml Tube Feeding 500 ml 50 ml Other 100 ml Output Urine Total 1100 ml 800 ml # Bowel Movements 2 5 Laboratory Tests 05/22/20 06:42: White Blood Count 10.4, Red Blood Count 3.74L, Hemoglobin 10.3L, Hematocrit 34.1L, Mean Corpuscular Volume 91, Mean Corpuscular Hemoglobin 27.6, Mean Corpuscular Hemoglobin Concent 30.3L, Red Cell Distribution Width 15.3H, Demteri telet Count 420, Mean Platelet Volume 6.3L, Neutrophils (%) (Auto) 79.3H, L ymphocytes (%) (Auto) 10.2L, Monocytes (%) (Auto) 7.5, Eosinophils (%) (Auto) 1.7, Basophils (%) (Auto) 1.3, Sodium Level 139, Potassium Level 4.1, Chloride Level 100, Carbon Dioxide Level 36H, Anion Gap 3L, Blood Urea Nitrogen 16, Creatinine 0.4L, Estimat Glomerular Filtration Rate > 60, Glucose Level 142H, Calcium Level 8.8, Phosphorus Level 3.3, Magnesium Level 1.9, Total Bilirubin 0.3, Gamma Glutamyl Transpeptidase 288H, Aspartate Amino Transf (AST/SGOT) 18, Alanine Aminotransferase (ALT/SGPT) 59, Alkaline Phosphatase 201H, Total Protein 6.4, Albumin 2.7L, Globulin 3.7, Albumin/Globulin Ratio 0.7L Height (Feet): 5 Height (Inches): 10.00 Weight (Pounds): 243 General Appearance: no apparent distress EENT: normal ENT inspection Neck: supple Cardiovascular: normal rate Respiratory/Chest: decreased breath sounds Abdomen: normal bowel sounds, non tender, soft Extremities: non-tender Assessment/Plan Status: stable, unchanged Assessment/Plan: no event over night has diarrhea GTF abd us>>>reviewed CT>>>reviewed repeat labs on imodium Da Quintero MD May 22, 2020 08:04
[2020-05-22] MEDS: Eliquis 2.5mg tablet GT SCH ×2 (08:45→17:06)
[2020-05-22] MEDS: Lansoprazole 15mg cap GT SCH (08:46)
[2020-05-22] MEDS: Vitamin D 1000 units Tab GT SCH (08:46)
[2020-05-22] MEDS: HYDROcodone/Acetamin 10/325 tab ORAL PRN ×3 (10:01→21:48)
--- NOTE | 2020-05-22 10:14 | NUR ---
NURSE NOTES: Pt is complaining around penis pain, Dr Mata visited pt and is aware, order noted and carried out. will continue to monitor.
[2020-05-22] MEDS: Lidocaine HCl 2% Jelly 6ml Tube TOPIC PRN ×2 (10:21→17:05)
--- NOTE | 2020-05-22 10:48 | Pulmonology Progress Note ---
Subjective ROS Limited/Unobtainable: No Interval Events: tolerating CPAP + PSV Constitutional: Denies: fever HEENT: Repors: no symptoms Respiratory: Reports: no symptoms, shortness of breath Cardiovascular: Reports: no symptoms Gastrointestinal/Abdominal: Reports: diarrhea; Denies: nausea, vomiting Psychiatric: Denies: depression Skin: Denies: rash Musculoskeletal: Denies: pain Allergies: Coded Allergies: No Known Allergies (Unverified , 02/05/20) Objective Last 24 Hour Vital Signs Date Time Temp Pulse Resp B/P (MAP) Pulse Ox O2 Delivery O2 Flow Rate FiO2 05/22/20 09:16 100 25 166/89 97 05/22/20 08:46 100 185/93 05/22/20 08:46 100 25 185/93 98 05/22/20 08:46 185/93 05/22/20 08:45 100 185/93 05/22/20 08:00 97.9 100 25 185/93 (123) 98 05/22/20 08:00 40 05/22/20 08:00 Mechanical Ventilator 05/22/20 07:51 98 05/22/20 07:40 95 27 40 05/22/20 04:33 102 28 40 05/22/20 04:00 92 05/22/20 04:00 96.3 93 17 153/89 (110) 98 05/22/20 03:30 103 29 40 05/22/20 03:26 40 05/22/20 03:24 Mechanical Ventilator 05/22/20 02:01 91 21 146/82 97 05/22/20 01:31 91 21 158/82 96 05/22/20 01:30 Mechanical Ventilator 40 05/22/20 01:30 93 26 40 05/22/20 00:00 40 05/22/20 00:00 Mechanical Ventilator 05/22/20 00:00 75 05/22/20 00:00 98.0 88 20 146/84 (104) 98 05/21/20 23:30 91 21 40 05/21/20 21:58 98.1 05/21/20 21:37 92 36 40 05/21/20 21:03 98 158/82 05/21/20 20:00 97.7 91 20 158/88 (111) 98 05/21/20 20:00 93 05/21/20 20:00 Mechanical Ventilator 05/21/20 19:25 96 Mechanical Ventilator 40 05/21/20 19:14 96 26 40 05/21/20 17:20 81 154/79 05/21/20 17:08 81 22 40 05/21/20 16:00 40 05/21/20 16:00 91 05/21/20 16:00 Mechanical Ventilator 05/21/20 15:52 98.1 81 20 154/79 (104) 98 05/21/20 15:00 80 19 40 05/21/20 13:08 99 Mechanical Ventilator 40 05/21/20 13:08 79 31 40 05/21/20 12:00 71 05/21/20 12:00 40 05/21/20 12:00 Mechanical Ventilator 05/21/20 11:06 97.5 77 18 145/75 (98) 99 05/21/20 11:00 77 24 40 Intake and Output 05/21/20 05/22/20 19:00 07:00 Intake Total 850 ml 50 ml Output Total 1100 ml 800 ml Balance -250 ml -750 ml Free Water 150 ml IV Total 100 ml Tube Feeding 500 ml 50 ml Other 100 ml Output Urine Total 1100 ml 800 ml # Bowel Movements 2 5 General Appearance: WD/WN, no acute distress HEENT: normocephalic, atraumatic, status post trach Respiratory: chest wall non-tender Cardiovascular: normal rate, regular rhythm Abdomen: normal bowel sounds, soft, non tender, other - obese Extremities: no edema, other - L arm weakness and swelling without redness Neurologic: alert, oriented x 3, normal mood/affect Microbiology Date/Time Source Procedure Growth Status 05/21/20 06:05 Nasopharynx SARS-CoV-2 Antigen (Rapid)(HAMLET) - Final Complete Laboratory Tests 05/22/20 06:42: White Blood Count 10.4, Red Blood Count 3.74L, Hemoglobin 10.3L, Hematocrit 34.1L, Mean Corpuscular Volume 91, Mean Corpuscular Hemoglobin 27.6, Mean Corpu scular Hemoglobin Concent 30.3L, Red Cell Distribution Width 15.3H, Platelet Count 420, Mean Platelet Volume 6.3L, Neutrophils (%) (Auto) 79.3H, Lymphocytes (%) (Auto) 10.2L, Monocytes (%) (Auto) 7.5, Eosinophils (%) (Auto) 1.7, Basophils (%) (Auto) 1.3, Sodium Level 139, Potassium Level 4.1, Chloride Level 100, Carbon Dioxide Level 36H, Anion Gap 3L, Blood Urea Nitrogen 16, Creatinine 0.4L, Estimat Glomerular Filtration Rate > 60, Glucose Level 142H, Calcium Level 8.8, Phosphorus Level 3.3, Magnesium Level 1.9, Total Bilirubin 0.3, Gamma Glutamyl Transpeptidase 288H, Aspartate Amino Transf (AST/SGOT) 18, Alanine Aminotransferase (ALT/SGPT) 59, Alkaline Phosphatase 201H, Total Protein 6.4, Albumin 2.7L, Globulin 3.7, Albumin/Globulin Ratio 0.7L Current Medications Medications (Trade) Dose Ordered Sig/Dennis Route PRN Reason Start Time Stop Time Status Last Admin Dose Admin Acetaminophen (Tylenol) 650 mg Q4H PRN GT Mild Pain (Pain Scale 1-3) 05/02/20 08:45 06/01/20 08:44 05/08/20 20:28 Acetaminophen/ Hydrocodone Bitart ([place] 10/325) 1 tab Q4H PRN ORAL For Pain 05/16/20 09:45 05/23/20 09:44 05/22/20 10:01 Amlodipine Besylate (Norvasc) 2.5 mg BID GT 05/02/20 18:00 06/02/20 08:59 05/22/20 08:45 Apixaban (Eliquis) 5 mg BID GT 05/21/20 09:00 08/19/20 08:59 05/22/20 08:45 Atorvastatin Calcium (Lipitor) 40 mg BEDTIME GT 05/18/20 21:00 08/16/20 20:59 05/21/20 21:04 Cefepime HCl 2 gm/ Dextrose 100 ml @ 200 mls/hr EVERY 8 HOURS IVPB 05/15/20 22:00 05/22/20 21:59 05/22/20 05:51 Chlorhexidine Gluconate (Marlen-Hex 2%) 1 applic DAILY@1999 TOPIC 03/30/20 20:00 06/28/20 19:59 05/21/20 21:03 Famotidine (Pepcid) 20 mg Q12HR PRN GT HEARTBURN 05/08/20 13:15 06/01/20 15:14 05/13/20 08:52 Hydralazine HCl (Apresoline) 10 mg Q4H PRN IV For High Blood Pressure 03/30/20 12:15 06/28/20 12:14 05/22/20 08:46 Ipratropium [place] (Atrovent) 500 mcg Q6H PRN HHN Shortness of Breath 05/17/20 09:00 05/24/20 08:59 05/19/20 15:02 Lansoprazole (Prevacid) 30 mg DAILY GT 05/20/20 09:00 06/01/20 08:59 05/22/20 08:46 Lidocaine HCl (Xylocaine Jelly 2%) 1 applic Q6H PRN TOPIC For Pain 05/22/20 10:15 08/20/20 10:14 05/22/20 10:21 Loperamide HCl (Imodium) 2 mg Q6H PRN GT Diarrhea 05/21/20 08:00 06/20/20 07:59 05/21/20 08:32 Lorazepam (Ativan) 1 mg Q6H PRN GT For Anxiety 05/17/20 08:59 05/24/20 08:58 05/22/20 08:46 Metoprolol Tartrate (Lopressor) 25 mg Q12HR ORAL 05/17/20 21:00 08/15/20 20:59 05/22/20 08:46 Ondansetron HCl (Zofran) 4 mg Q6H PRN IVP Nausea & Vomiting 05/16/20 09:45 06/15/20 09:44 05/16/20 10:02 Quetiapine Fumarate (SEROqueL) 50 mg EVERY 8 HOURS GT 05/13/20 14:00 06/11/20 11:59 05/22/20 05:52 Sertraline HCl (Zoloft) 100 mg DAILY ORAL 05/23/20 09:00 06/22/20 08:59 Vitamin D (Vitamin D) 3,000 unit DAILY GT 05/18/20 09:00 06/17/20 08:59 05/22/20 08:46 Assessment/Plan Assessment/Plan 1.COVID-19 pneumonia. - Completed specific therapies - tapering steroid -> now on prednisone 5 mg QD - s/p bactrim for PJP prophylaxis 2. DVT ppx - s/p Lovenox - added Eliquis 3. Hypertension - On Norvasc 4. Leukocytosis; resolved - ID following - Candidemia documented 03/18/20 5. Elevated LFT; still elevated but downtrending - positive Hep C; treated in the past with IF - Abd US, Abd CT don't show evidence of cholecystitis - Lipase/amylase wnl 6. Respiratory failure -Intubated 03/28/20; s/p tracheostomy 04/25/20 -Gradually weaned off sedation IOV 7. Left UE edema and weakness - CT head w/o contrast -> Negative for acute intracranial bleed or mass effect - seen by neuro - MRI brain per neuro -> however, cannot be done here at [facility] at this time -> Neuro recommends outpatient MRI brain 8. Pneumomediastinum - no PTX - now on T-piece 9. New onset vomiting with R sided abd pain - Abd US, abd CT - Zofran prn n/v - Dw surgery; No indication for surgical intervention at this time 10. Yeast UTI - ID following 11. BCx gram positive rods - ID following 12. Signs of depression - Will add Zoloft Will wean down FiO2 as tolerated CXR shows bilateral interstitial changes? fibrosis? S/p PEG Off IV fluids On seroquel 50 mg PO TID; On Ativan and [place] Pt now has a bed available at [facility] -> DC if pt feels better today. If not plan for dc tomorrow Will discontinue PICC line and abx on discharge per ID recs The care of this patient was discussed with my supervising physician Time spent for this encounter was approximately 31 minutes Edilson Marinelli May 22, 2020 10:48
--- NOTE | 2020-05-22 11:20 | NUR ---
PT NOTE Attempted to see patient for PT treatment. Patient declining to participate with PT due to c/o lower abdominal pain rated at 10/10 despite receiving pain medication earlier. Afsoon RN aware of patient's pain complaints, will follow up tomorrow.
[2020-05-22] MEDS ORDERED: ELIQUIS2.5 MG GT (11:31)
[2020-05-22] MEDS ORDERED: NORVASC5 MG GT (11:31)
[2020-05-22] MEDS ORDERED: LANSOPRAZOLE15 MG GT (11:31)
[2020-05-22] MEDS ORDERED: SERTRALINE HCL100 MG ORAL (11:31)
[2020-05-22] MEDS ORDERED: SEROQUEL25 MG GT (11:31)
[2020-05-22] MEDS ORDERED: LIPITOR20 MG GT (11:31)
[2020-05-22] MEDS ORDERED: LOPERAMIDE1 MG/7.5 M GT (11:31)
[2020-05-22] MEDS ORDERED: LOPRESSOR25 M1 ORAL (11:31)
[2020-05-22] MEDS ORDERED: ATIVAN1 MG GT (11:31)
[2020-05-22] MEDS ORDERED: FAMOTIDINE20 MG GT (11:31)
[2020-05-22] MEDS ORDERED: VITAMIN D325 MCG GT (11:31)
[2020-05-22] MEDS ORDERED: HYDROcodone/Acetamin 10/325 ORAL (11:31)
[2020-05-22] MEDS ORDERED: APRESOLINE20 MG/ML IV (11:31)
--- NOTE | 2020-05-22 11:55 | NUR ---
INSURANCE CLINICALS FAXED TO [employer] T: [phone] #1 F: [phone] [employer] WORKER:JACQUELINE JAMES T: [phone] F: [phone]
[2020-05-22] MEDS ORDERED: NORCO 10/3251 EA ORAL (11:56)
--- NOTE | 2020-05-22 12:00 | Nephrology Progress Note ---
Assessment/Plan Problem List: (1) Dehydration (2) Electrolyte imbalance (3) COVID-19 virus infection (4) Pneumonia (5) DMII (diabetes mellitus, type 2) (6) Protein malnutrition Assessment Azotemia, hypernatremia Hypoalbuminemia Staff Otilia bacteremia COVID-19 isolation, pneumonia, bilateral infiltrate Hypertension Diabetes mellitus History of smoking Plan May 22: Patient seen. Examined. Discussed with RN. Brownlee is out and voiding well. Labs reviewed. Renal parameters electrolytes stable. Medication list reviewed. Continue as is. May 21: Discussed with RN. Will discontinue Brownlee catheter. Will check for voiding. Meds reviewed. Check labs tomorrow. May 20: Status quo. Full code. Trach to vent. Feeding through GT. Labs reviewed. Medication list reviewed. Abnormal electrolyte addressed. Discussed with RN. May 19: Status quo. Labs reviewed. Medication list reviewed. Continue per consultants. Stable from renal standpoint of view. May 18: Patient seen. Low potassium addressed. Labs and medication list reviewed. Clinically improving. Continue per consultants. May 17: Patient seen. Discussed with PRIYAKNA Estevez. Patient clinically improved. Liver enzymes and lower. Renal parameters stable. White blood cells within normal limit. Continue per consultants. May 16: Renal parameters stable. Acute elevation in liver function tests White BC with right-sided abdominal pain. Likely acute Karen cystitis. Contin ue per GI/surgery. Medication list reviewed. Continue to monitor electrolytes and renal parameters. May 15: Labs reviewed. Renal parameters stable. Patient remains full code. Is trached to vent and has PEG. May 14: Labs reviewed. Stable renal parameters. May 13: No labs drawn today. Stable from renal standpoint of view. Continue per consultants. May 12: Labs reviewed. Renal parameters stable. Status quo. Continue per consultants. May 11: No labs drawn today. Will check can panel tomorrow. Medication list reviewed. Patient remains full code. Continue per consultants. May 10: Labs reviewed. Serum sodium higher. Renal parameters and electrolytes stable. Medication list reviewed. Continue per consultants. May 09: Labs reviewed. Serum sodium 135. Continue to monitor electrolytes. Medication list reviewed. Continue per current management. May 08: Labs reviewed. Renal parameters stable. Medication list reviewed. Continue per consultants. May 07: No labs drawn today reviewed. Clinically stable. Medication list reviewed. Will check lab tomorrow. Continue per consultants. May 06: Labs reviewed. Renal parameters stable. Continue per consultants. May 05: Labs reviewed. Renal parameters stable. Patient is due to be transferred to SCU. Continue per consultants. Medication list reviewed. May 04: Labs reviewed. Renal parameters stable. Overall status unchanged. Remains full code. Fed through GT tube. Trach to vent. FiO2 45%. Continue per consultants. May 03: No CHEM panel drawn today. Patient clinically stable. Has trach to vent and PEG. Will check lab tomorrow. May 02: Labs reviewed. Status quo. Patient is trached and vented. Also has PEG. Is full code. Stable from renal standpoint of view. May 01: Labs reviewed. Status quo. Patient has trach connected to vent. Has PEG. He is full code. FiO2 50%. April 30: Status quo. Labs reviewed. Renal parameters stable. Medication list reviewed. April 29: Status quo. Received PEG yesterday. Has trach connected to vent. FiO2 40%. Labs reviewed. Medication list reviewed. Continue same April 28: Status quo. Labs reviewed. Renal parameters stable. Patient n.p.o. due for PEG insertion. IV changed to D5 normal saline. Continue per consultants. April 27: Status quo. Labs reviewed. Medication list reviewed. Stable from renal standpoint of view. Abnormal electrolytes addressed. April 26: Patient is now trached and connected to vent. FiO2 70%. Labs reviewed. Renal parameters stable. Medication list reviewed. Continue per consultants. April 25: Status quo. Full code. FiO2 55%. No labs drawn today. Continue to monitor electrolytes and renal parameters. Continue per consultants. April 24: Status quo. Full code. Intubated on ventilator. FiO2 65%. Labs reviewed. Renal parameters and electrolytes stable. April 23: Status unchanged. Full code. Intubated on ventilator. FiO2 75%. Labs reviewed. Renal parameters stable. Continue per consultants. April 22: Labs reviewed. Patient remains intubated on ventilator and full code. FiO2 90%. Day 77 hospitalization. Not much to add from renal standpoint of view April 21: No CHEM panel drawn today. FiO2 60%. Patient full code. Continue per consultants. April 20: Labs reviewed. Renal parameters stable. Patient remains full code. Intubated on ventilator with FiO2 currently at 70%. Continue per cons ultants. April 19: No labs drawn today. Remains full code on FiO2 of 100%. Continue per consultants. April 18: Status quo. Labs reviewed. Renal parameters stable. April 17: Status quo. Intubated on ventilator. Full code. Labs reviewed. Electrolytes and renal parameters stable. Continue per consultants. April 16: Girlfriend in the room. Patient awake. Intubated. Full code. Labs reviewed. Abnormal electrolyte addressed. Continue per consultants. April 15: Labs reviewed. Electrolytes and renal parameters stable. Patient full code. Continues to be intubated on ventilator. April 14: Status quo. Labs reviewed. Remains intubated on ventilator. Full code. Continue per consultants. April 13: Status quo. Labs reviewed. Renal parameters electrolytes stable. Continue per current treatment plan. April 12: On higher FiO2. Will resume Lasix daily. Continue to monitor electrolytes and renal parameters. Per consultants. April 11: FiO2 went up to 85%. Renal parameters and electrolytes reasonably well-maintained. Will monitor serum potassium. Will give IV Lasix. April 10: Status quo. Labs reviewed. Remains intubated on ventilator with FiO2 of 65%. Remains full code. Stable from renal standpoint to view. Repeat vitamin D level on April 08 pending April 09: Status quo. Labs reviewed. Stable from renal standpoint of view. Continue per consultants. April 08: Discussed with RN. Labs reviewed. Clinically improving. Requires lower PEEP. Continue per pulmonary. Continue to monitor renal parameters. April 07: Remains full code and on ventilator. Labs reviewed. Renal parameters and electrolytes stable. Continue per consultants. Blood pressure marginally improved. April 06: Full code. On ventilator. Blood pressure 80-90 systolic. IV Lasix discontinued. Free water through tube feeding ordered. Continue to monitor electrolytes and serum sodium. Down on fentanyl as possible. Discussed with RN Kevin. Clonidine patch discontinued. April 05: Status quo. Remains full code. Remains intubated. Labs reviewed. Renal parameters stable. Serum sodium 150 unchanged. Continue per consultants. April 04: Remains intubated and on ventilator. Remains full code. Labs reviewed. Serum sodium 150 unchanged. Renal parameters stable. Continue per ID and pulmonary. April 03: Intubated. On ventilator. Full code. Labs reviewed. Serum sodium 150 unchanged. Continue to monitor renal parameters. Continue per pulmonary and ID. April 02: Full code. On ventilator. Discussed with RN. Serum sodium slightly higher. Will cut down on IV Lasix. Continue per consultants. Continue to monitor renal parameters and electrolytes. April 01: Full code. Remains on ventilator. Labs reviewed. Stable from renal standpoint of view. Continue per consultants. March 31: Full code . Remains intubated on ventilator. Labs reviewed. Patient appears toxic. Discussed with RN. Maintenance IV discontinued. Medication list reviewed. Blood pressure medication stopped due to low blood pressure. Levemir insulin stopped. Continue monitor blood sugar and sliding scale insulin. March 30: Full code. On ventilator. Labs reviewed. Clonidine patch dose increased. Lasix increased. 3% saline 1 time ordered. Continue to monitor electrolytes and renal parameters. March 29: Remains full code. On mechanical ventilation. On tube feeding. Will DC TPN. Will start on maintenance IV fluid. Continue to monitor renal parameters. March 28: On BiPAP. Full code. On TPN. Labs reviewed. Discussed with pharmacy. Continue as is. Watch serum potassium. March 27: Remains on BiPAP. No chemistry panel done today. Full code. On TPN. Will check lab tomorrow. March 26: Remains on BiPAP. Remains on TPN. Labs reviewed. Electrolytes and chemistries within normal limits. Continue as is. March 25: Remains on TPN. Labs reviewed. Discussed with pharmacy. Change IV Protonix to p.o. Continue 3% saline infusion with Lasix. Patient full code. March 24: Continue to be on TPN. Labs are reviewed. Aim to collect electrolytes. Discussed with pharmacy. Continue current consultants. March 23: Continues to be on TPN. Labs reviewed. Electrolytes and chemistries all acceptable. Discussed with pharmacy. Continue current management. March 22: On TPN. Labs reviewed. Low sodium noted. 3% saline to be continued. Continue to monitor electrolytes. Discussed with pharmacy. March 21: On TPN. Labs reviewed. Continue 3% saline and Lasix for mild hyponatremia. Continue TPN as these. Discussed with pharmacy. March 20: Remains on TPN. Labs reviewed. Serum sodium higher on IV Lasix and 3% saline infusion. Continue TPN as is. Continue to monitor renal parameters and electrolytes. Discussed with Dr. Mata March 19: Remains on TPN. Labs reviewed. Serum sodium 128. Will give 3% saline with IV Lasix. Continue to monitor electrolytes. No change in TPN composition. Discussed with pharmacy. March 18: Remains on TPN. Labs reviewed. Discussed with pharmacist. Will give 3 doses of IV Lasix 20 mg every 8 hours. Continue to monitor serum sodium electrolytes uric acid. White blood cells down. Continue per consultants. March 17: On TPN. Labs reviewed. Discussed with pharmacist. Sodium content increase. Continue to monitor CMP. Patient continues to have leukocytosis. March 16: On TPN. Labs reviewed. Discussed with pharmacist. Appropriate pascual nges made. Continue to monitor electrolytes. March 15: Remains on TPN. Labs reviewed. Discussed with pharmacist. Continue per current management. March 14: Remains on TPN. Labs reviewed, stable. Vitamin D level low, replacement ordered. Continue to monitor electrolytes and renal parameters. March 13: Patient remains on TPN. Discussed with pharmacist. TPN's sodium content adjusted. Labs reviewed. Continue to monitor electrolytes. Blood pressure remains stable. Continue per consultants. March 12: Patient on TPN. Labs reviewed. CPK remains elevated. Abnormal electrolytes and high blood sugar discussed with pharmacist and TPN adjusted. Continue to monitor labs. Oral Protonix added. Ibuprofen discontinued. Can continue to monitor electrolytes and chemistries. Levemir for high blood sugar added. March 11: Patient on TPN. Labs as of 11:15 AM is still pending. Continue per current treatment plan. Will check labs and adjust TPN as needed. Continue per consultants. March 10: Patient on TPN. Labs reviewed. Electrolytes overall stable. CPK is elevated. Will monitor electrolyte, CPK level, lipid panel. Continue per consultants. Discussed with pharmacist. Discussed with RN. Nutritional evaluation noted. Previously: D5W 100 cc an hour Monitor electrolytes renal parameters TPN and Intralipid ordered Will follow Continue per consultants Dietary consult requested Subjective ROS Limited/Unobtainable: Yes Objective Objective Last 24 Hour Vital Signs Date Time Temp Pulse Resp B/P (MAP) Pulse Ox O2 Delivery O2 Flow Rate FiO2 05/22/20 09:16 100 25 166/89 97 05/22/20 08:46 100 185/93 05/22/20 08:46 100 25 185/93 98 05/22/20 08:46 185/93 05/22/20 08:45 100 185/93 05/22/20 08:00 97.9 100 25 185/93 (123) 98 05/22/20 08:00 40 05/22/20 08:00 Mechanical Ventilator 05/22/20 07:51 98 05/22/20 07:40 95 27 40 05/22/20 04:33 102 28 40 05/22/20 04:00 92 05/22/20 04:00 96.3 93 17 153/89 (110) 98 05/22/20 03:30 103 29 40 05/22/20 03:26 40 05/22/20 03:24 Mechanical Ventilator 05/22/20 02:01 91 21 146/82 97 05/22/20 01:31 91 21 158/82 96 05/22/20 01:30 Mechanical Ventilator 40 05/22/20 01:30 93 26 40 05/22/20 00:00 40 05/22/20 00:00 Mechanical Ventilator 05/22/20 00:00 75 05/22/20 00:00 98.0 88 20 146/84 (104) 98 05/21/20 23:30 91 21 40 05/21/20 21:58 98.1 05/21/20 21:37 92 36 40 05/21/20 21:03 98 158/82 05/21/20 20:00 97.7 91 20 158/88 (111) 98 05/21/20 20:00 93 05/21/20 20:00 Mechanical Ventilator 05/21/20 19:25 96 Mechanical Ventilator 40 05/21/20 19:14 96 26 40 05/21/20 17:20 81 154/79 05/21/20 17:08 81 22 40 05/21/20 16:00 40 05/21/20 16:00 91 05/21/20 16:00 Mechanical Ventilator 05/21/20 15:52 98.1 81 20 154/79 (104) 98 05/21/20 15:00 80 19 40 05/21/20 13:08 99 Mechanical Ventilator 40 05/21/20 13:08 79 31 40 05/21/20 12:00 71 05/21/20 12:00 40 05/21/20 12:00 Mechanical Ventilator Intake and Output 05/21/20 05/22/20 19:00 07:00 Intake Total 850 ml 50 ml Output Total 1100 ml 800 ml Balance -250 ml -750 ml Free Water 150 ml IV Total 100 ml Tube Feeding 500 ml 50 ml Other 100 ml Output Urine Total 1100 ml 800 ml # Bowel Movements 2 5 Current Medications Medications (Trade) Dose Ordered Sig/Dennis Route PRN Reason Start Time Stop Time Status Last Admin Dose Admin Acetaminophen (Tylenol) 650 mg Q4H PRN GT Mild Pain (Pain Scale 1-3) 05/02/20 08:45 06/01/20 08:44 05/08/20 20:28 Acetaminophen/ Hydrocodone Bitart (Rydal 10/325) 1 tab Q4H PRN ORAL For Pain 05/16/20 09:45 05/23/20 09:44 05/22/20 10:01 Amlodipine Besylate (Norvasc) 2.5 mg BID GT 05/02/20 18:00 06/02/20 08:59 05/22/20 08:45 Apixaban (Eliquis) 5 mg BID GT 05/21/20 09:00 08/19/20 08:59 05/22/20 08:45 Atorvastatin Calcium (Lipitor) 40 mg BEDTIME GT 05/18/20 21:00 08/16/20 20:59 05/21/20 21:04 Cefepime HCl 2 gm/ Dextrose 100 ml @ 200 mls/hr EVERY 8 HOURS IVPB 05/15/20 22:00 05/22/20 21:59 05/22/20 05:51 Chlorhexidine Gluconate (Marlen-Hex 2%) 1 applic DAILY@2000 TOPIC 03/30/20 20:00 06/28/20 19:59 05/21/20 21:03 Famotidine (Pepcid) 20 mg Q12HR PRN GT HEARTBURN 05/08/20 13:15 06/01/20 15:14 05/13/20 08:52 Hydralazine HCl (Apresoline) 10 mg Q4H PRN IV For High Blood Pressure 03/30/20 12:15 06/28/20 12:14 05/22/20 08:46 Ipratropium Makinen (Atrovent) 500 mcg Q6H PRN HHN Shortness of Breath 05/17/20 09:00 05/24/20 08:59 05/19/20 15:02 Lansoprazole (Prevacid) 30 mg DAILY GT 05/20/20 09:00 06/01/20 08:59 05/22/20 08:46 Lidocaine HCl (Xylocaine Jelly 2%) 1 applic Q6H PRN TOPIC For Pain 05/22/20 10:15 08/20/20 10:14 05/22/20 10:21 Loperamide HCl (Imodium) 2 mg Q6H PRN GT Diarrhea 05/21/20 08:00 06/20/20 07:59 05/21/20 08:32 Lorazepam (Ativan) 1 mg Q6H PRN GT For Anxiety 05/17/20 08:59 05/24/20 08:58 05/22/20 08:46 Metoprolol Tartrate (Lopressor) 25 mg Q12HR ORAL 05/17/20 21:00 08/15/20 20:59 05/22/20 08:46 Ondansetron HCl (Zofran) 4 mg Q6H PRN IVP Nausea & Vomiting 05/16/20 09:45 06/15/20 09:44 05/16/20 10:02 Quetiapine Fumarate (SEROqueL) 50 mg EVERY 8 HOURS GT 05/13/20 14:00 06/11/20 11:59 05/22/20 05:52 Sertraline HCl (Zoloft) 100 mg DAILY ORAL 05/23/20 09:00 06/22/20 08:59 Vitamin D (Vitamin D) 3,000 unit DAILY GT 05/18/20 09:00 06/17/20 08:59 05/22/20 08:46 Laboratory Tests 05/22/20 06:42: White Blood Count 10.4, Red Blood Count 3.74L, Hemoglobin 10.3L, Hematocrit 34.1L, Mean Corpuscular Volume 91, Mean Corpuscular Hemoglobin 27.6, Mean Corpuscular Hemoglobin Concent 30.3L, Red Cell Distribution Width 15.3H, Platelet Count 420, Mean Platelet Volume 6.3L, Neutrophils (%) (Auto) 79.3H, Lymphocytes (%) (Auto) 10.2L, Monocytes (%) (Auto) 7.5, Eosinophils (%) (Auto) 1.7, Basophils (%) (Auto) 1.3, Sodium Level 139, Potassium Level 4.1, Chloride Level 100, Carbon Dioxide Level 36H, Anion Gap 3L, Blood Urea Nitrogen 16, Creatinine 0.4L, Estimat Glomerular Filtration Rate > 60, Glucose Level 142H, Calcium Level 8.8, Phosphorus Level 3.3, Magnesium Level 1.9, Total Bilirubin 0.3, Gamma Glutamyl Transpeptidase 288H, Aspartate Amino Transf (AST/SGOT) 18, Alanine Aminotransferase (ALT/SGPT) 59, Alkaline Phosphatase 201H, Total Protein 6.4, Albumin 2.7L, Globulin 3.7, Albumin/Globulin Ratio 0.7L Height (Feet): 5 Height (Inches): 10.00 Weight (Pounds): 243 General Appearance: no apparent distress EENT: other - Trach to vent Neck: limited range of motion Cardiovascular: tachycardia - Rate 100 Respiratory/Chest: decreased breath sounds Abdomen: distended Rubin Cooper MD May 22, 2020 12:00
--- NOTE | 2020-05-22 12:19 | NUR ---
PT WEEKLY PROGRESS NOTE Patient being seen by PT for therapeutic exercises, positioning and bed mobility activities. Patient motivated however at times participation is limited by c/o pain and fatigue. Patient requires max assist for rolling, has been unable to sit at the EOB. Patient will benefit from continued skilled inpatient PT intervention to increase strength all four extremities and to progress with bed mobility and transfers as tolerated.
--- NOTE | 2020-05-22 13:29 | NUR ---
NURSE NOTES: pt is complaining penis pain is growing up, Dr Weinberg visited pt, no new order received, YENI Marinelli notified x2, PA will consult with Dr Mata and will F/U. NO new order received. pt is aware, will continue close monitoring.
--- NOTE | 2020-05-22 13:34 | Infectious Diseases Prog Note ---
Assessment/Plan Assessment/Plan ASSESSMENT AND PLAN: 1. hx staph aureus bacteremia/mssa - s/p tx covid-19 +, hypoxia, sob, chest x-ray worse, ? PE, ? HCAP/aspiration pna trach/vent, joseph pneumomediastinum/subcutaneous emphysema, ? new hcap/aspiration pna e.coli uti, urine yeast likely a colonizer, sepsis, leukocytosis possible cholecystitis, abdominal pain, elevated lft's, abdominal CT and US noted 1/4 diphtheroids blood culture likely contaminant, f/u blood cultures ordered scrotal/penile pain - no cellulitis, + pain - ? urology evaluation - cefepime, flagyl - day # 8 - finish course - sputum culture with yeast - likely colonizer, surveillance blood cultures negative - monitor labs and chest x-ray - surgery f/u and work-up - pulmonary f/u 2. covid-19 isolation removed - covid-19 recovered 3. Hypertension history. Blood pressure treatment primary care team. 4. Elevated blood sugars. Blood sugar treatment per primary care team. 5. No known drug allergies. 6. Social history is positive for smoking. 7. Family history is noncontributory. 8. MAR was noted. 9. Case was discussed with RN. 10. Continue treatment per primary consultants. Subjective Constitutional: Reports: other - + vent/trach ; Denies: fever HEENT: Reports: congestion Respiratory: Reports: shortness of breath Cardiovascular: Denies: chest pain Gastrointestinal/Abdominal: Denies: nausea, vomiting, diarrhea Genitourinary: Reports: other - ? scrotal/penile pain, joseph discontinued Neurologic: Denies: headache Psychiatric: Reports: other - NA Skin: Denies: rash Hematologic: Denies: bleeding Musculoskeletal: Reports: pain - + scrotal/penile seen Allergies: Coded Allergies: No Known Allergies (Unverified , 02/05/20) Objective Last 24 Hour Vital Signs Date Time Temp Pulse Resp B/P (MAP) Pulse Ox O2 Delivery O2 Flow Rate FiO2 05/22/20 12:00 97.8 116 30 160/89 (112) 97 05/22/20 12:00 40 05/22/20 12:00 Mechanical Ventilator 05/22/20 11:41 114 05/22/20 09:16 100 25 166/89 97 05/22/20 08:46 100 185/93 05/22/20 08:46 100 25 185/93 98 05/22/20 08:46 185/93 05/22/20 08:45 100 185/93 05/22/20 08:00 97.9 100 25 185/93 (123) 98 05/22/20 08:00 40 05/22/20 08:00 Mechanical Ventilator 05/22/20 07:51 98 05/22/20 07:40 95 27 40 05/22/20 04:33 102 28 40 05/22/20 04:00 92 05/22/20 04:00 96.3 93 17 153/89 (110) 98 05/22/20 03:30 103 29 40 05/22/20 03:26 40 05/22/20 03:24 Mechanical Ventilator 05/22/20 02:01 91 21 146/82 97 05/22/20 01:31 91 21 158/82 96 05/22/20 01:30 Mechanical Ventilator 40 05/22/20 01:30 93 26 40 05/22/20 00:00 40 05/22/20 00:00 Mechanical Ventilator 05/22/20 00:00 75 05/22/20 00:00 98.0 88 20 146/84 (104) 98 05/21/20 23:30 91 21 40 05/21/20 21:58 98.1 05/21/20 21:37 92 36 40 05/21/20 21:03 98 158/82 05/21/20 20:00 97.7 91 20 158/88 (111) 98 05/21/20 20:00 93 05/21/20 20:00 Mechanical Ventilator 05/21/20 19:25 96 Mechanical Ventilator 40 05/21/20 19:14 96 26 40 05/21/20 17:20 81 154/79 05/21/20 17:08 81 22 40 05/21/20 16:00 40 05/21/20 16:00 91 05/21/20 16:00 Mechanical Ventilator 05/21/20 15:52 98.1 81 20 154/79 (104) 98 05/21/20 15:00 80 19 40 Height (Feet): 5 Height (Inches): 10.00 Weight (Pounds): 243 General Appearance: no acute distress HEENT: normocephalic, atraumatic, anicteric, status post trach Respiratory/Chest: crackles/rales, rhonchi - bilaterally Cardiovascular: normal rate, regular rhythm, no gallop/murmur Abdomen: normal bowel sounds, soft, non tender, no organomegaly Genitourinary: other - no joseph, no scrotal or penile cellultitis Extremities: no cyanosis Skin: no rash 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 Note nonvisualization of the left hepatic lobe, spleen, pancreas, abdominal aorta Gallbladder sludge. Negative for biliary ductal dilatation Unremarkable kidneys Liver demonstrates diffusely increased echogenicity, consistent with diffuse hepatocellular disease, most likely fatty change. CT chest: IMPRESSION: There are mild subpleural ground-glass and consolidating infiltrates in the dependent portions of both lower lobes and to lesser degree the upper lobes consistent with bilateral pneumonia. The infiltrates are typical for Covid 19. No evidence of pulmonary embolus. CT abdomen and pelvis: IMPRESSION: 1. Scattered hepatic hypodense lesions, too small to characterize on this examination without intravenous contrast. 2. Colonic diverticulosis without evidence of acute diverticulitis. 3. Scattered enlarged mesenteric lymph nodes, presumably reactive. teral pneumonia. The infiltrates are typical for Covid 19. No evidence of pulmonary embolus. Chest x-ray - 12/19/19 - Indication: Shortness of breath Technique: One view of the chest Comparison: 02/17/2020 Findings: Interim worsening of bilateral infiltrates, particularly on the right. The heart is borderline enlarged. The pleural spaces are clear. Left arm PICC is again demonstrated Impression: Worsening bilateral infiltrates over one day, likely pneumonia CT chest - 02/19/20 - IMPRESSION: Increased extensive patchy ground-glass opacities and densities throughout the lungs, suggestive of Covid 19 infection. Chest x-ray 02/23/20 - Procedure: XRAY Chest 1v As Indication: Reason For Exam: INFECT Technique: One view of the chest Comparison: 02/20/2020 Findings: Allowing for differences in exposure technique, bilateral mid and lower lung infiltrates are probably unchanged. The heart size is normal. The pleural spaces are clear. Impression: Unchanged, over 4 days, findings as above. Chest x-ray - 02/25/20 - FINDINGS: Lungs: Interval slightly worsening bilateral airspace disease. Pleural space: Unremarkable. No pneumothorax. Heart: Unremarkable. No cardiomegaly. Mediastinum: Unremarkable. Bones/joints: Unremarkable. IMPRESSION: Interval slightly worsening bilateral airspace disease. Chest x-ray - 03/02/20 - Procedure: XRAY Chest 1v Indication: Shortness of breath Technique: One view of the chest Comparison: 02/25/2020 Findings: Bilateral interstitial and airspace infiltrates are unchanged. The heart size is normal. Left arm PICC is again demonstrated Impression: Unchanged, over one day, findings as above. Chest x-ray - 03/06/20 - Procedure: XRAY Chest 1v Indication: Shortness of breath Technique: One view of the chest Comparison: 03/02/2020 Findings: Bilateral infiltrates are unchanged. Normal heart size. Pleural spaces are clear Chest x-ray - 03/12/10 - Impression: COMPARISON: Chest radiograph March 06, 2020. FINDINGS/IMPRESSION: Improving basilar infiltrates. Follow chest radiograph recommended. The upper lung finley are clear. No pneumothorax. Stable cardiomegaly. Stable left upper extremity PICC line. anged, over 4 days, findings as above. Chest x-ray - 03/17/20 - Procedure: XRAY Chest 1v Indication: Shortness of breath Technique: One view of the chest Comparison: 03/12/2020 Findings: Left arm PICC is again demonstrated. Infiltrates are unchanged. The heart size is upper limits of normal. Impression: Unchanged, over 5 days, findings as above. Abdominal US - IMPRESSION: 1. Gallbladder is normal. 2. Hepatic steatosis. 3. 1.7 cm cyst right kidney. Impression. Chest x-ray - Procedure: XRAY Chest 1v Indication: Shortness of breath Technique: One view of the chest Comparison: 03/17/2020 Findings: Bilateral right greater than left infiltrates again demonstrated. The heart size is normal. There is a left arm PICC in good position. Impression: Unchanged, over 5 days, findings as above. Chest x-ray - 03/29/20 - Procedure: XRAY Chest 1v Indication: Cough Technique: One view of the chest Comparison: 03/28/2020 Findings: Bilateral infiltrates are unchanged or slightly worse, allowing for differences in exposure technique. The pleural spaces are clear. The heart size is normal. Stable satisfactory position of endotracheal tube, left arm PICC. Dior gastric tube has retracted somewhat the position remains satisfactory. Impression: Stable to slightly worse bilateral infiltrates. Otherwise little change person one day Chest x-ray - 03/31/20 - Procedure: XRAY Chest 1v Indication: Post endotracheal tube repositioning Technique: One view of the chest Comparison: 3 hours earlier Findings: Interim advancement of endotracheal tube, tip projecting approximately 5 cm above the sunny. Interim advancement of orogastric tube as well. Bilateral infiltrates are unchanged. Left arm PICC remains Impression: Improved and now satisfactory tube positions as described. ICU nurse Maeve notified at the time of interpretation Chest x-ray - 04/02/20 - COMPARISON: Chest x-rays dated 03/31/20 and 03/12/20. FINDINGS: Lungs: No significant change in bilateral prominent interstitial markings. The lungs are otherwise clear without focal consolidation. Pleural space: Unremarkable. The costophrenic angles are sharp. No visible pneumothorax. Heart: Unremarkable. No cardiomegaly. Mediastinum: Unremarkable. Bones/joints: Unremarkable. Tubes, lines and devices: Endotracheal tube tip 6.5 cm above the sunny. NG tube tip in the distal stomach. Telemetry leads overlie the thorax. IMPRESSION: No significant change in bilateral prominent interstitial markings. Procedure: XRAY Chest 1v Procedure: XRAY Chest 1v Reason for study: Shortness of breath 04/06/20 - Comparison films: 04/02/2020. FINDINGS: Endotracheal tube and NG tube remain in place. There is worsening of right basilar infiltrates. Some haziness in left lung base unchanged. Cardiac and mediastinal silhouette are within normal limits. CP angles are sharp. The bony thorax appear unremarkable. IMPRESSION: Worsening of right basilar infiltrate. Chest x-ray - 04/09/20 - Procedure: XRAY Chest 1v FILM CXR 1 VIEW INDICATION: Infection COMPARISON: April 05, 2020 FINDINGS: Single frontal view demonstrates a normal cardiomediastinal silhouette. Endotracheal tube in place with tip above the sunny. Elevation of the right hemidiaphragm. Interstitial prominence with bilateral lower lobe infiltrates. Lung bases appear worse from the prior exam. Small right effusion. Right-sided PICC line with tip in the superior vena cava. Enteric tube in place. IMPRESSION: Interstitial prominence and bilateral lower lobe pneumonia with worsening appearance from the prior study. Chest x-ray - 04/12/20 - Procedure: XRAY Chest 1v Indication: Shortness of breath Technique: One view of the chest Comparison: 04/09/2020 Findings: Stable satisfactory tube and line positions. Bilateral infiltrates have worsened slightly since prior study. The heart size is normal. Impression: Worsening bilateral infiltrates, over 3 days Chest x-ray - 04/15/20 - COMPARISON: 02/11/21. FINDINGS: Lungs: There is been no significant change in mild to moderate patchy diffuse bilateral alveolar infiltrates which are most prominent in the lung bases. Pleural space: Unremarkable. No pneumothorax. Heart: Unremarkable. No cardiomegaly. Mediastinum: Unremarkable. Bones/joints: Unremarkable. Tubes, lines and devices: There is an endotracheal tube, right-sided PICC line and NG tube in good position. IMPRESSION: There is been no significant change in mild to moderate patchy diffuse bilateral alveolar infiltrates which are most prominent in the lung bases. Chest x-ray - 04/18/20 - Procedure: XRAY Chest 1v Indication: Cough Technique: One view of the chest Comparison: 04/15/2020 Findings: Less optimal inspiration currently than previously. Stable satisfactory positions of endotracheal and orogastric tubes and right arm PICC. Bilateral infiltrates are again demonstrated, unchanged. Impression: Unchanged, over 3 days, findings as above. Chest x-ray - 04/21/20 - Procedure: XRAY Chest 1v Indication: Dyspnea Technique: One view of the chest Comparison: 04/18/2020 Findings: Stable tube and line positions. Bilateral infiltrates are unchanged Impression: Unchanged, over one day, findings as above. Procedure: XRAY Chest 1v Procedure: XRAY Chest 1v Reason for study: Reason For Exam: SOB Chest x-ray - 04/25/20 - Comparison films: 04/21/2020. FINDINGS: Endotracheal tube, NG tube and right PICC line remain in place. Vascularity is normal. Bilateral infiltrates are unchanged. Cardiac and mediastinal silhouette are within normal limits. CP angles are sharp. The bony thorax appear unremarkable. IMPRESSION: NO SIGNIFICANT CHANGE COMPARED TO PREVIOUS EXAM. Chest x-rasy - 04/30/20 - FINDINGS: Lungs: Bilateral patchy pulmonary opacities concerning for pneumonia, not significantly changed compared to the prior chest x-ray. Pleural space: Unremarkable. The costophrenic angles are sharp. No visible pneumothorax. Heart: Unremarkable. No cardiomegaly. Mediastinum: Unremarkable. Bones/joints: Unremarkable. Tubes, lines and devices: Tracheostomy tube in place, with expected positioning. Telemetry leads overlie the thorax. Right arm PICC with catheter tip in the SVC region. IMPRESSION: Bilateral patchy pulmonary opacities concerning for pneumonia, not significantly changed compared to the prior chest x-ray. Chest x-ray - 05/12/20 - Procedure: XRAY Chest 1v Procedure: XRAY Chest 1v Reason for study: Shortness of breath. Comparison films: 04/30/2020. FINDINGS: Tracheostomy and right PICC line remain in place. There is new pneumomediastinum as well as subcutaneous cutaneous emphysema noted in the right supraclavicular region. Slight increase in diffuse bilateral alveolar densities likely worsening infiltrates and/or edema. Cardiac and mediastinal silhouette are within normal limits. CP angles are sharp. The bony thorax appear unremarkable. IMPRESSION: Slight worsening of bilateral basilar densities, infiltrates and/or edema. New pneumomediastinum and subcutaneous cutaneous air in the right supraclavicular region. Chest x-rasy - 05/14/20 - Procedure: XRAY Chest 1v EXAM: XR Chest, 1 View CLINICAL HISTORY: INFECT TECHNIQUE: Frontal view of the chest. COMPARISON: 05/12/20 FINDINGS: Since the prior examination, there is marked increase in pneumomediastinum as well as soft tissue gas to the chest wall and supraclavicular regions, right greater than left. Redemonstrated appropriately positioned tracheostomy. Tip of right arm PICC is in the SVC. No clear pneumothorax given limitations due to overlying chest wall gas. Extensive bilateral interstitial and airspace infiltrates appear similar to the prior examination, but suspect slight progression in the left upper lobe. IMPRESSION: Increasing pneumomediastinum and chest wall gas. Extensive bilateral pulmonary infiltrates, progressed in the left upper lobe. CT abdomen an pelvis: Impression: Distended gallbladder. Somewhat dense material within the bladder lumen probably represents sludge. However, the possibility that this represents blood should also be considered given the relatively high attenuation. There is also biliary ductal dilatation, without definite downstream obstructive lesion. MRCP may be useful for better characterization Right renal lesion, demonstrating soft tissue attenuation. Possibly a h emorrhagic cyst given cystic appearance on prior study. However, the possibly of solid neoplasm should also be considered. Extensive bilateral basilar pulmonary parenchymal opacification likely related to ongoing pneumonia Small amount of free intraperitoneal fluid Subcutaneous emphysema and pneumomediastinum, also reported on prior chest radiograph Clinical history diverticulosis Gastrostomy Hepatic and left renal cysts Joseph catheter Findings discussed by phone with Dr. Rausch at the time of interpretation Abdominal US: Impression: Very limited exam as described. Note nonvisualization of the left hepatic lobe, spleen, pancreas, abdominal aorta Gallbladder sludge. Negative for biliary ductal dilatation Unremarkable kidneys Liver demonstrates diffusely increased echogenicity, consistent with diffuse hepatocellular disease, most likely fatty change. Chest x-ray - 05/20/20 - Procedure: XRAY Chest 1v Indication: Shortness of breath Technique: One view of the chest Comparison: 05/17/2020 Findings: Subcutaneous emphysema and cervical emphysema appears slightly improved. Pneumomediastinum persists. Bilateral infiltrates are probably unchanged, allowing for lower lung volumes on the current exam. Tracheostomy, right arm PICC are again demonstrated. The heart size is normal. Impression: Slightly decreased subcutaneous emphysema. Otherwise little change person one day Chest x-ray - 05/2020 - COMPARISON: 05/18/2020 FINDINGS: Lungs: Unchanged extensive interstitial and airspace opacities throughout the lungs. Pleural space: No pleural effusion. No pneumothorax. Heart: Unremarkable. No cardiomegaly. Soft tissues: Redemonstrated but improved subcutaneous emphysema. Tubes, lines and devices: Tracheostomy cannula and right upper extremity PICC unchanged. IMPRESSION: Unchanged appearance of the lungs. No new acute abnormality. Decreasing subcutaneous emphysema. Microbiology Date/Time Source Procedure Growth Status 05/21/20 06:05 Nasopharynx SARS-CoV-2 Antigen (Rapid)(HAMLET) - Final Complete 05/16/20 20:00 Blood Blood Culture - Preliminary NO GROWTH AFTER 4 DAYS Resulted 05/14/20 07:00 Urine,Clean Catch Urine Culture - Final Escherichia Coli Kat Parapsilosis Complete 04/14/20 16:35 Stool Clostridium difficile Toxin Assay - Final Complete Microbiology Date/Time Source Procedure Growth Status 05/21/20 06:05 Nasopharynx SARS-CoV-2 Antigen (Rapid)(HAMLET) - Final Complete Laboratory Tests Test 05/22/20 06:42 White Blood Count 10.4 K/UL (4.8-10.8) Red Blood Count 3.74 M/UL (4.70-6.10) L Hemoglobin 10.3 G/DL (14.2-18.0) L Hematocrit 34.1 % (42.0-52.0) L Mean Corpuscular Volume 91 FL (80-99) Mean Corpuscular Hemoglobin 27.6 PG (27.0-31.0) Mean Corpuscular Hemoglobin Concent 30.3 G/DL (32.0-36.0) L Red Cell Distribution Width 15.3 % (11.6-14.8) H Platelet Count 420 K/UL (150-450) Mean Platelet Volume 6.3 FL (6.5-10.1) L Neutrophils (%) (Auto) 79.3 % (45.0-75.0) H Lymphocytes (%) (Auto) 10.2 % (20.0-45.0) L Monocytes (%) (Auto) 7.5 % (1.0-10.0) Eosinophils (%) (Auto) 1.7 % (0.0-3.0) Basophils (%) (Auto) 1.3 % (0.0-2.0) Sodium Level 139 MMOL/L (136-145) Potassium Level 4.1 MMOL/L (3.5-5.1) Chloride Level 100 MMOL/L (98-107) Carbon Dioxide Level 36 MMOL/L (21-32) H Anion Gap 3 mmol/L (5-15) L Blood Urea Nitrogen 16 mg/dL (7-18) Creatinine 0.4 MG/DL (0.55-1.30) L Estimat Glomerular Filtration Rate > 60 mL/min (>60) Glucose Level 142 MG/DL (74-106) H Calcium Level 8.8 MG/DL (8.5-10.1) Phosphorus Level 3.3 MG/DL (2.5-4.9) Magnesium Level 1.9 MG/DL (1.8-2.4) Total Bilirubin 0.3 MG/DL (0.2-1.0) Gamma Glutamyl Transpeptidase 288 U/L (5-85) H Aspartate Amino Transf (AST/SGOT) 18 U/L (15-37) Alanine Aminotransferase (ALT/SGPT) 59 U/L (12-78) Alkaline Phosphatase 201 U/L (46-116) H Total Protein 6.4 G/DL (6.4-8.2) Albumin 2.7 G/DL (3.4-5.0) L Globulin 3.7 g/dL Albumin/Globulin Ratio 0.7 (1.0-2.7) L Current Medications Medications (Trade) Dose Ordered Sig/Dennis Route PRN Reason Start Time Stop Time Status Last Admin Dose Admin Acetaminophen (Tylenol) 650 mg Q4H PRN GT Mild Pain (Pain Scale 1-3) 05/02/20 08:45 06/01/20 08:44 05/08/20 20:28 Acetaminophen/ Hydrocodone Bitart ([place] 10/325) 1 tab Q4H PRN ORAL For Pain 05/16/20 09:45 05/23/20 09:44 05/22/20 10:01 Amlodipine Besylate (Norvasc) 2.5 mg BID GT 05/02/20 18:00 06/02/20 08:59 05/22/20 08:45 Apixaban (Eliquis) 5 mg BID GT 05/21/20 09:00 08/19/20 08:59 05/22/20 08:45 Atorvastatin Calcium (Lipitor) 40 mg BEDTIME GT 05/18/20 21:00 08/16/20 20:59 05/21/20 21:04 Cefepime HCl 2 gm/ Dextrose 100 ml @ 200 mls/hr EVERY 8 HOURS IVPB 05/15/20 22:00 05/22/20 21:59 05/22/20 05:51 Chlorhexidine Gluconate (Marlen-Hex 2%) 1 applic DAILY@1999 TOPIC 03/30/20 20:00 06/28/20 19:59 05/21/20 21:03 Famotidine (Pepcid) 20 mg Q12HR PRN GT HEARTBURN 05/08/20 13:15 06/01/20 15:14 05/13/20 08:52 Hydralazine HCl (Apresoline) 10 mg Q4H PRN IV For High Blood Pressure 03/30/20 12:15 06/28/20 12:14 05/22/20 08:46 Ipratropium [place] (Atrovent) 500 mcg Q6H PRN HHN Shortness of Breath 05/17/20 09:00 05/24/20 08:59 05/19/20 15:02 Lansoprazole (Prevacid) 30 mg DAILY GT 05/20/20 09:00 06/01/20 08:59 05/22/20 08:46 Lidocaine HCl (Xylocaine Jelly 2%) 1 applic Q6H PRN TOPIC For Pain 05/22/20 10:15 08/20/20 10:14 05/22/20 10:21 Loperamide HCl (Imodium) 2 mg Q6H PRN GT Diarrhea 05/21/20 08:00 06/20/20 07:59 05/21/20 08:32 Lorazepam (Ativan) 1 mg Q6H PRN GT For Anxiety 05/17/20 08:59 05/24/20 08:58 05/22/20 08:46 Metoprolol Tartrate (Lopressor) 25 mg Q12HR ORAL 05/17/20 21:00 08/15/20 20:59 05/22/20 08:46 Ondansetron HCl (Zofran) 4 mg Q6H PRN IVP Nausea & Vomiting 05/16/20 09:45 06/15/20 09:44 05/16/20 10:02 Quetiapine Fumarate (SEROqueL) 50 mg EVERY 8 HOURS GT 05/13/20 14:00 06/11/20 11:59 05/22/20 05:52 Sertraline HCl (Zoloft) 100 mg DAILY ORAL 05/23/20 09:00 06/22/20 08:59 Vitamin D (Vitamin D) 3,000 unit DAILY GT 05/18/20 09:00 06/17/20 08:59 05/22/20 08:46 Kisha Salazar MD May 22, 2020 13:33
--- NOTE | 2020-05-22 14:30 | Neurology Progress Note ---
Interim History Interim History ROS Limited/Unobtainable: Yes Events: potential dc today was resting no distress Objective Physical Exam Last Vital Signs Date Time Temp Pulse Resp B/P (MAP) Pulse Ox O2 Delivery O2 Flow Rate FiO2 05/22/20 12:00 97.8 116 30 160/89 (112) 97 05/22/20 12:00 40 05/22/20 12:00 Mechanical Ventilator 05/20/20 07:50 10.0 Laboratory Tests Test 05/22/20 06:42 White Blood Count 10.4 K/UL (4.8-10.8) Red Blood Count 3.74 M/UL (4.70-6.10) L Hemoglobin 10.3 G/DL (14.2-18.0) L Hematocrit 34.1 % (42.0-52.0) L Mean Corpuscular Volume 91 FL (80-99) Mean Corpuscular Hemoglobin 27.6 PG (27.0-31.0) Mean Corpuscular Hemoglobin Concent 30.3 G/DL (32.0-36.0) L Red Cell Distribution Width 15.3 % (11.6-14.8) H Platelet Count 420 K/UL (150-450) Mean Platelet Volume 6.3 FL (6.5-10.1) L Neutrophils (%) (Auto) 79.3 % (45.0-75.0) H Lymphocytes (%) (Auto) 10.2 % (20.0-45.0) L Monocytes (%) (Auto) 7.5 % (1.0-10.0) Eosinophils (%) (Auto) 1.7 % (0.0-3.0) Basophils (%) (Auto) 1.3 % (0.0-2.0) Sodium Level 139 MMOL/L (136-145) Potassium Level 4.1 MMOL/L (3.5-5.1) Chloride Level 100 MMOL/L (98-107) Carbon Dioxide Level 36 MMOL/L (21-32) H Anion Gap 3 mmol/L (5-15) L Blood Urea Nitrogen 16 mg/dL (7-18) Creatinine 0.4 MG/DL (0.55-1.30) L Estimat Glomerular Filtration Rate > 60 mL/min (>60) Glucose Level 142 MG/DL (74-106) H Calcium Level 8.8 MG/DL (8.5-10.1) Phosphorus Level 3.3 MG/DL (2.5-4.9) Magnesium Level 1.9 MG/DL (1.8-2.4) Total Bilirubin 0.3 MG/DL (0.2-1.0) Gamma Glutamyl Transpeptidase 288 U/L (5-85) H Aspartate Amino Transf (AST/SGOT) 18 U/L (15-37) Alanine Aminotransferase (ALT/SGPT) 59 U/L (12-78) Alkaline Phosphatase 201 U/L (46-116) H Total Protein 6.4 G/DL (6.4-8.2) Albumin 2.7 G/DL (3.4-5.0) L Globulin 3.7 g/dL Albumin/Globulin Ratio 0.7 (1.0-2.7) L Neurologic Exam Objective PHYSICAL EXAMINATION: General: Pt is awake oriented and has insight to situation. Neuro: resting in bed watching television,Awake,alert oriented x4 language parameters intact, Comprehension intact PERRLA, No nystagmus with gaze. No facial droop tongue is midline. Hearing intact. No involuntary movement, bedbound gait not tested. Right upper extremity 3/5, left upper extremity unable to move, raise and sq ueeze my hand bilateral lower extremities 1/5. Impression/Recommendations Status: stable, unchanged Diagnostic Impression LABORATORY DATA: Reviewed. IMAGING CT Head: Negative for acute intracranial bleed or mass effect Mild frontal cortical volume loss Cervical soft tissue emphysema, also reported on recent chest radiograph 05/17: Repeat CT HEAD: Very questionable slightly more prominent right frontal deep white matter low-attenuation, if real could represent an evolving lacunar infarct rather than just routine deep white matter ischemic change. If clinically indicated, MRI may be useful to clarify Otherwise unchanged noncontrast findings, since 05/15/2020, with mild age-related volume loss and periventricular deep white matter ischemic change. No unusual contrast enhancing lesion demonstrated. Assessment and Rec's: 1. Possible Evolving Right Lacunar Stroke which could be contributing to his Left Upper Extremity weakness --> CT head Very questionable slightly more prominent right frontal deep white matter low-attenuation, if real could represent an evolving lacunar infarct rather than just routine deep white matter ischemic change. If clinically indicated, MRI may be useful- at this time MRI cannot be done here Would recommend as an outpatient. --> LUE edema, unable to raise arm --> CT Head imaging reviewed as above --> Continue PT/OT and he has dc planning for subacute d/w primary care team. continue current care 2. Covid 19 Disease, complicated --> s/p treatment. 3. 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 Smoker. 4. PNA Covid 19 Thank you for allowing us to participate in patient's care, Plan of care was reviewed with Dr. Manoj Lopez and he agrees with plan of care. Nina Zafar NP May 22, 2020 14:30
--- NOTE | 2020-05-22 15:10 | Surgery Progress Note ---
Surgery Progress Note Subjective Procedure Performed tracheostomy Additional Comments afebrile ,tachy , htn feels well no complaints limited left side Objective Last 24 Hour Vital Signs Date Time Temp Pulse Resp B/P (MAP) Pulse Ox O2 Delivery O2 Flow Rate FiO2 05/22/20 12:00 97.8 116 30 160/89 (112) 97 05/22/20 12:00 40 05/22/20 12:00 Mechanical Ventilator 05/22/20 11:41 114 05/22/20 09:16 100 25 166/89 97 05/22/20 08:46 100 185/93 05/22/20 08:46 100 25 185/93 98 05/22/20 08:46 185/93 05/22/20 08:45 100 185/93 05/22/20 08:00 97.9 100 25 185/93 (123) 98 05/22/20 08:00 40 05/22/20 08:00 Mechanical Ventilator 05/22/20 07:51 98 05/22/20 07:40 95 27 40 05/22/20 04:33 102 28 40 05/22/20 04:00 92 05/22/20 04:00 96.3 93 17 153/89 (110) 98 05/22/20 03:30 103 29 40 05/22/20 03:26 40 05/22/20 03:24 Mechanical Ventilator 05/22/20 02:01 91 21 146/82 97 05/22/20 01:31 91 21 158/82 96 05/22/20 01:30 Mechanical Ventilator 40 05/22/20 01:30 93 26 40 05/22/20 00:00 40 05/22/20 00:00 Mechanical Ventilator 05/22/20 00:00 75 05/22/20 00:00 98.0 88 20 146/84 (104) 98 05/21/20 23:30 91 21 40 05/21/20 21:58 98.1 05/21/20 21:37 92 36 40 05/21/20 21:03 98 158/82 05/21/20 20:00 97.7 91 20 158/88 (111) 98 05/21/20 20:00 93 05/21/20 20:00 Mechanical Ventilator 05/21/20 19:25 96 Mechanical Ventilator 40 05/21/20 19:14 96 26 40 05/21/20 17:20 81 154/79 05/21/20 17:08 81 22 40 05/21/20 16:00 40 05/21/20 16:00 91 05/21/20 16:00 Mechanical Ventilator 05/21/20 15:52 98.1 81 20 154/79 (104) 98 I&O Intake and Output 05/21/20 05/22/20 19:00 07:00 Intake Total 850 ml 50 ml Output Total 1100 ml 800 ml Balance -250 ml -750 ml Free Water 150 ml IV Total 100 ml Tube Feeding 500 ml 50 ml Other 100 ml Output Urine Total 1100 ml 800 ml # Bowel Movements 2 5 Dressing: saturated Wound: clean Cardiovascular: RSR Respiratory: clear, other Abdomen: soft, flat, non-tender, present bowel sounds, other, non-distended Extremities: no edema, no tenderness, no cyanosis, pulses, other Laboratory Tests Test 05/22/20 06:42 White Blood Count 10.4 K/UL (4.8-10.8) Red Blood Count 3.74 M/UL (4.70-6.10) L Hemoglobin 10.3 G/DL (14.2-18.0) L Hematocrit 34.1 % (42.0-52.0) L Mean Corpuscular Volume 91 FL (80-99) Mean Corpuscular Hemoglobin 27.6 PG (27.0-31.0) Mean Corpuscular Hemoglobin Concent 30.3 G/DL (32.0-36.0) L Red Cell Distribution Width 15.3 % (11.6-14.8) H Platelet Count 420 K/UL (150-450) Mean Platelet Volume 6.3 FL (6.5-10.1) L Neutrophils (%) (Auto) 79.3 % (45.0-75.0) H Lymphocytes (%) (Auto) 10.2 % (20.0-45.0) L Monocytes (%) (Auto) 7.5 % (1.0-10.0) Eosinophils (%) (Auto) 1.7 % (0.0-3.0) Basophils (%) (Auto) 1.3 % (0.0-2.0) Sodium Level 139 MMOL/L (136-145) Potassium Level 4.1 MMOL/L (3.5-5.1) Chloride Level 100 MMOL/L (98-107) Carbon Dioxide Level 36 MMOL/L (21-32) H Anion Gap 3 mmol/L (5-15) L Blood Urea Nitrogen 16 mg/dL (7-18) Creatinine 0.4 MG/DL (0.55-1.30) L Estimat Glomerular Filtration Rate > 60 mL/min (>60) Glucose Level 142 MG/DL (74-106) H Calcium Level 8.8 MG/DL (8.5-10.1) Phosphorus Level 3.3 MG/DL (2.5-4.9) Magnesium Level 1.9 MG/DL (1.8-2.4) Total Bilirubin 0.3 MG/DL (0.2-1.0) Gamma Glutamyl Transpeptidase 288 U/L (5-85) H Aspartate Amino Transf (AST/SGOT) 18 U/L (15-37) Alanine Aminotransferase (ALT/SGPT) 59 U/L (12-78) Alkaline Phosphatase 201 U/L (46-116) H Total Protein 6.4 G/DL (6.4-8.2) Albumin 2.7 G/DL (3.4-5.0) L Globulin 3.7 g/dL Albumin/Globulin Ratio 0.7 (1.0-2.7) L Plan Problems: (1) Pneumonia (2) Staphylococcus aureus bacteremia (3) COVID-19 virus infection Assessment & Plan: prior now neg improving (4) Chest pain (5) Hypertension (6) Dehydration (7) Electrolyte imbalance (8) DMII (diabetes mellitus, type 2) (9) Protein malnutrition Assessment & Plan: DAILY ESTIMATED NEEDS: Needs based on Critical care, wound 81kg abw 22-28 kcals/kg 8852-8422 total kcals 1.25-2 g protein/kg 101-162 g total protein 25-30 mL/kg 3585-2519 total fluid mLs NUTRITION DIAGNOSIS: * Increased kcal/prot/micronutrients needs R/T wound healing as evidenced by pt w/ new multiple pressure injuries, 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 * Inadequate oral intake R/T clinical and respiratory status as evidenced by COVID-19 ++, on continuous BIPAP, prolonged meal refusals, pt is now on TPN, pt orally intubated (03/28), s/p trach placement (04/26), and s/p PEG placement (04/27), now on GT feeds. * Decreased sodium and fat needs r/t HTN and obesity as evidenced by pt w/ cardiac history, elev BP (159/98-> now improved, on BP meds and diuretics), BMI >30, obese per guidelines. (INACTIVE) CURRENT TF:Glucerna 1.5 goal of 50 + Prosource BID ENTERAL NUTRITION RECOMMENDATIONS: Glucerna 1.5 @ 50ml/hr x 24 hrs + Prosource 1pkt BID to provide 1200ml, 1800kcal, 99g +22g prot (121g total prot), 926ml free water * Maintain current TF order * Con't Prosource 1pkt BID (additional 22g prot) to better meet est prot needs. ADDITIONAL RECOMMENDATIONS: 1) Maintain calibrated bedscale wts 2) Monitor BGs closely w/ Solumedrol (POC glu wnl at this time) 3) Monitor lytes, replete as needed 4) Monitor TF tolerance: PEG placed 04/28, cont to increase TF to goal as tolerated 5) Wound healing: Add Michael BID (mix w/ 2-4oz of water) TF @ goal provides 100% RDI, add Vit C 500mg QD, ZnSO4 220mg [id number] (10) Respiratory insufficiency Assessment & Plan: 64-year-old male with respiratory insufficiency intubated in an intensive care unit. Patient has been unable to safely wean off ventilatory support. Surgery called to evaluate for tracheostomy. After careful evaluation patient is a candidate for tracheostomy. In the meantime will obtain consent. If consent obtained will proceed with scheduling. Thank you for your participation's care will follow recommendations improving trach okay agitated weaning sedation no n/v cont weaning transition to oral meds via g tube get off drips improving downgraded weaning well more alert and awake responsive will need placement trach collar consideration pending sub acute placement okay for placement cont trach care leave sutures in place as dissolvable recovering well fully awake now tolerating diet d/c planning awaiting placement (11) LFT elevation Assessment & Plan: leukocytosis lfts elevated no n/v US ordered trend labs abx US noted labs improved hold anticoag cont tf trend labs pain improved no n/v/f/c labs improved wbc resolved lft's trending down hold on procedure okay to resume anticoag ct head noted neuro input Booker Rausch May 22, 2020 15:10
--- NOTE | 2020-05-22 15:31 | NUR ---
NURSE NOTES: Dr Rausch visited pt and is aware about penis area pain, NNO. YENI Marinelli called back and stated Dr Mata doesn't give any new order, Pt is aware. will continue close monitoring.
--- NOTE | 2020-05-22 18:02 | NUR ---
CARE PROGRAM RESIDENT NOTES SPOKE WITH JACKY FROM [facility] STILL PENDING.WILL FOLLOW UP IN THE AM. VINAY MCDONALD MADE AWARE.
--- NOTE | 2020-05-22 19:04 | NUR ---
NURSE HAND-OFF REPORT: Important Events on Shift: Patient Status: Diet: Pending Orders: Pending Results/Labs: Pending MD notification: Latest Vital Signs: Temperature 96.8 , Pulse 120 , B/P 151 /88 , Respiratory Rate 24 , O2 SAT 97 , Mechanical Ventilator, O2 Flow Rate 10.0 . Vital Sign Comment: EKG Rhythm: Sinus Tachycardia Rhythm change?: N MD Notified?: -Dr. Chito INTERIANO Response: No New Orders Received Latest Hassan Fall Score: 35 Fall Risk: Medium Risk Safety Measures: Call light Within Reach, Bed Alarm Zone 1, Side Rails Side Rails x3, Bed position Low and Locked. Fall Precautions: Yellow Socks Yellow Gown Door Sign Patient Fall Education Report given to . pt is awake and stable, no stress noted, endorsed plan of care.SPO2 98%.
--- NOTE | 2020-05-22 19:15 | NUR ---
NURSE NOTES: Received pt from PRIYANKA Estevez. Pt in bed awake, alert and oriented X4 Trach to vent with setting of CPAP at 40% Fi02, PEEP of 5, PS 5. Respirations even and unlabored. In no acute distress. GT in place and receiving Glucerna 1.5 at 50ml/hr. w/no residual noted. PICC to Rt UA C/o abdominal pain. Dr Sargent currently making rounds and aware of abdominal pain during abdominal palpation. Suggested to make Dr. Rausch aware of abdominal pain. Pt. requesting to be in chair but there's no out of bed and PT order. Bed is locked in lowest position. Call light w/in reach. Bed alarm engaged.
--- NOTE | 2020-05-22 19:24 | Cardiology Progress Note ---
Assessment/Plan Assessment/Plan Acute covid 19 pneumonia hypoxemia infiltrate bilat bacteremia hypernatremia / hyponatremia mild abn lfts tachy post intubation fever fungemia dvt upper ext right sided abd pain back on the vent still abd pain again s/p trach / peg afebrile now hypoxemia unlikely cardiac related back on full dose anticoag due to dvt ue cr is stable d/w shilpi diallo for bp to be transferred to skilled nursing care faciliity Subjective Cardiovascular: Denies: chest pain, lightheadedness Respiratory: Reports: shortness of breath Gastrointestinal/Abdominal: Reports: abdominal pain Genitourinary: Denies: burning Objective Last 24 Hour Vital Signs Date Time Temp Pulse Resp B/P (MAP) Pulse Ox O2 Delivery O2 Flow Rate FiO2 05/22/20 19:15 114 33 40 05/22/20 17:35 120 24 151/88 97 05/22/20 17:05 121 25 157/90 98 05/22/20 17:05 121 157/90 05/22/20 17:00 105 45 40 05/22/20 16:28 96.8 121 25 157/90 (112) 98 05/22/20 15:58 40 05/22/20 15:47 Mechanical Ventilator 05/22/20 15:12 121 05/22/20 15:00 120 39 40 05/22/20 13:00 112 40 40 05/22/20 12:00 97.8 116 30 160/89 (112) 97 05/22/20 12:00 40 05/22/20 12:00 Mechanical Ventilator 05/22/20 11:41 114 05/22/20 11:00 112 35 98 Mechanical Ventilator 40 05/22/20 11:00 98 35 40 05/22/20 09:16 100 25 166/89 97 05/22/20 09:00 112 35 40 05/22/20 08:46 100 185/93 05/22/20 08:46 100 25 185/93 98 05/22/20 08:46 185/93 05/22/20 08:45 100 185/93 05/22/20 08:00 97.9 100 25 185/93 (123) 98 05/22/20 08:00 40 05/22/20 08:00 Mechanical Ventilator 05/22/20 07:51 98 05/22/20 07:40 95 27 40 05/22/20 04:33 102 28 40 05/22/20 04:00 92 05/22/20 04:00 96.3 93 17 153/89 (110) 98 05/22/20 03:30 103 29 40 05/22/20 03:26 40 05/22/20 03:24 Mechanical Ventilator 05/22/20 02:01 91 21 146/82 97 05/22/20 01:31 91 21 158/82 96 05/22/20 01:30 Mechanical Ventilator 40 05/22/20 01:30 93 26 40 05/22/20 00:00 40 05/22/20 00:00 Mechanical Ventilator 05/22/20 00:00 75 05/22/20 00:00 98.0 88 20 146/84 (104) 98 05/21/20 23:30 91 21 40 05/21/20 21:58 98.1 05/21/20 21:37 92 36 40 05/21/20 21:03 98 158/82 05/21/20 20:00 97.7 91 20 158/88 (111) 98 05/21/20 20:00 93 05/21/20 20:00 Mechanical Ventilator 05/21/20 19:25 96 Mechanical Ventilator 40 General Appearance: no apparent distress, alert Neck: supple Cardiovascular: normal rate Respiratory/Chest: lungs clear Abdomen: normal bowel sounds, tender Extremities: no swelling Intake and Output 05/21/20 05/22/20 19:00 07:00 Intake Total 850 ml 100 ml Output Total 1100 ml 800 ml Balance -250 ml -700 ml Free Water 150 ml IV Total 100 ml Tube Feeding 500 ml 100 ml Other 100 ml Output Urine Total 1100 ml 800 ml # Bowel Movements 2 5 Laboratory Tests Test 05/22/20 06:42 White Blood Count 10.4 K/UL (4.8-10.8) Red Blood Count 3.74 M/UL (4.70-6.10) L Hemoglobin 10.3 G/DL (14.2-18.0) L Hematocrit 34.1 % (42.0-52.0) L Mean Corpuscular Volume 91 FL (80-99) Mean Corpuscular Hemoglobin 27.6 PG (27.0-31.0) Mean Corpuscular Hemoglobin Concent 30.3 G/DL (32.0-36.0) L Red Cell Distribution Width 15.3 % (11.6-14.8) H Platelet Count 420 K/UL (150-450) Mean Platelet Volume 6.3 FL (6.5-10.1) L Neutrophils (%) (Auto) 79.3 % (45.0-75.0) H Lymphocytes (%) (Auto) 10.2 % (20.0-45.0) L Monocytes (%) (Auto) 7.5 % (1.0-10.0) Eosinophils (%) (Auto) 1.7 % (0.0-3.0) Basophils (%) (Auto) 1.3 % (0.0-2.0) Sodium Level 139 MMOL/L (136-145) Potassium Level 4.1 MMOL/L (3.5-5.1) Chloride Level 100 MMOL/L (98-107) Carbon Dioxide Level 36 MMOL/L (21-32) H Anion Gap 3 mmol/L (5-15) L Blood Urea Nitrogen 16 mg/dL (7-18) Creatinine 0.4 MG/DL (0.55-1.30) L Estimat Glomerular Filtration Rate > 60 mL/min (>60) Glucose Level 142 MG/DL (74-106) H Calcium Level 8.8 MG/DL (8.5-10.1) Phosphorus Level 3.3 MG/DL (2.5-4.9) Magnesium Level 1.9 MG/DL (1.8-2.4) Total Bilirubin 0.3 MG/DL (0.2-1.0) Gamma Glutamyl Transpeptidase 288 U/L (5-85) H Aspartate Amino Transf (AST/SGOT) 18 U/L (15-37) Alanine Aminotransferase (ALT/SGPT) 59 U/L (12-78) Alkaline Phosphatase 201 U/L (46-116) H Total Protein 6.4 G/DL (6.4-8.2) Albumin 2.7 G/DL (3.4-5.0) L Globulin 3.7 g/dL Albumin/Globulin Ratio 0.7 (1.0-2.7) L Microbiology Date/Time Source Procedure Growth Status 05/21/20 06:05 Nasopharynx SARS-CoV-2 Antigen (Rapid)([facility]LET) - Final Complete Objective pt seen persoanlly Manan Awan MD May 22, 2020 19:24
--- NOTE | 2020-05-22 21:30 | NUR ---
NURSE NOTES: Dr. Rausch made aware of pt's abdominal pain. No new order given.
[2020-05-22] MEDS: Atorvastatin 20mg tab GT SCH (21:50)
[2020-05-22] MEDS: Dyna-Hex 2% Top Sol 2oz TOPIC SCH (21:51)
--- NOTE | 2020-05-23 | NUR ---
NURSE NOTES: Sleeping intermittently. Easily awakened verbally. Respirations even and unlabored. VSS. Afebrile. In no apparent distress.
[2020-05-23 03:38] VITALS: BP 154/95
[2020-05-23] MEDS: HYDROcodone/Acetamin 10/325 tab ORAL PRN ×2 (04:18→08:49)
[2020-05-23] MEDS: LORazepam 1mg tab GT PRN (05:43)
[2020-05-23 05:53] LABS: BASOPHILS % (AUTO) 1.4 % (0.0-2.0); EOSINOPHILS % (AUTO) 0.7 % (0.0-3.0); HEMATOCRIT 34.2 % (42.0-52.0); HEMOGLOBIN 10.7 G/DL (14.2-18.0); LYMPHOCYTES % (AUTO) 7.8 % (20.0-45.0); MEAN CORPUSCULAR VOLUME 90 FL (80-99); MONOCYTES % (AUTO) 8.2 % (1.0-10.0); NEUTROPHILS % (AUTO) 81.9 % (45.0-75.0); PLATELET COUNT 453 K/UL (150-450); RED CELL DISTRIBUTION WIDTH 15.4 % (11.6-14.8); WHITE BLOOD COUNT 12.4 K/UL (4.8-10.8)
[2020-05-23 06:00] LABS: ANION GAP 4 mmol/L (5-15); BLOOD UREA NITROGEN 18 mg/dL (7-18); CALCIUM 9.5 MG/DL (8.5-10.1); CARBON DIOXIDE 35 MMOL/L (21-32); CHLORIDE 99 MMOL/L (98-107); CREATININE 0.5 MG/DL (0.55-1.30); POTASSIUM 4.1 MMOL/L (3.5-5.1); SODIUM 138 MMOL/L (136-145)
--- NOTE | 2020-05-23 06:00 | NUR ---
NURSE NOTES: No significant changes. VSS. Afebrile. Continue to c/o abdominal pain. In no acute distress.
--- NOTE | 2020-05-23 07:09 | NUR ---
RESPIRATORY NOTE: Pt is awake, alert, tachypneic RR 36bpm,, tachycardia HR 119bpm. Pt is complaining of pain, refuses to be on T-piece. PRIYANKA Bolivar aware. Will try again later and continue to monitor pt closely.
--- NOTE | 2020-05-23 07:10 | NUR ---
NURSE NOTES: received patient report from sandi dobbins. patient is on bed awake, on cpap mode, unable to tolerate weaning yesterday per report. NSR on the monitor. no acute events last night. bed is low and lcoked for safety. pending placement to SNF. will follow plan of care.
[2020-05-23 08:00] VITALS: BP_SYST 108; BP_SYST 154; BP_DIAS 57; BP_DIAS 95
[2020-05-23] MEDS: Lansoprazole 15mg cap GT SCH (08:45)
[2020-05-23] MEDS: Vitamin D 1000 units Tab GT SCH (08:47)
[2020-05-23] MEDS: Eliquis 2.5mg tablet GT SCH ×2 (08:47→17:18)
[2020-05-23] MEDS: Sertraline 100mg tab ORAL SCH (08:47)
--- NOTE | 2020-05-23 09:03 | Pulmonology Progress Note ---
Subjective ROS Limited/Unobtainable: Yes Interval Events: tolerating CPAP + PSV Constitutional: Reports: other - + vent/trach ; Denies: fever HEENT: Repors: no symptoms Respiratory: Reports: no symptoms, shortness of breath Cardiovascular: Reports: no symptoms Gastrointestinal/Abdominal: Denies: nausea, vomiting, diarrhea Psychiatric: Reports: depression, anxiety Skin: Denies: rash Musculoskeletal: Reports: pain - + scrotal/penile seen Allergies: Coded Allergies: No Known Allergies (Unverified , 02/05/20) Objective Last 24 Hour Vital Signs Date Time Temp Pulse Resp B/P (MAP) Pulse Ox O2 Delivery O2 Flow Rate FiO2 05/23/20 08:48 128 154/95 05/23/20 08:47 128 154/95 05/23/20 08:00 97.3 128 20 154/95 (114) 95 05/23/20 08:00 Mechanical Ventilator 05/23/20 08:00 40 05/23/20 07:09 119 28 40 05/23/20 06:15 109 28 154/95 98 05/23/20 05:44 154/95 05/23/20 05:43 109 28 154/95 98 05/23/20 04:51 109 28 40 05/23/20 04:00 99 05/23/20 03:38 97.3 107 154/95 (114) 05/23/20 03:35 Mechanical Ventilator 05/23/20 03:35 40 05/23/20 03:30 100 22 40 05/23/20 00:57 98 30 40 05/22/20 23:55 100 22 149/89 98 05/22/20 23:33 40 05/22/20 23:30 100 149/89 (109) 05/22/20 23:30 102 05/22/20 23:30 Mechanical Ventilator 05/22/20 23:10 122 22 161/100 97 05/22/20 22:55 102 28 40 05/22/20 21:52 109 28 40 05/22/20 21:50 123 161/100 05/22/20 21:49 161/100 05/22/20 20:00 123 05/22/20 20:00 40 05/22/20 20:00 98.1 122 20 161/100 (120) 98 05/22/20 19:38 Mechanical Ventilator 05/22/20 19:15 114 33 40 3/22/21 17:35 120 24 151/88 97 05/22/20 17:05 121 25 157/90 98 05/22/20 17:05 121 157/90 05/22/20 17:00 105 45 40 05/22/20 16:28 96.8 121 25 157/90 (112) 98 05/22/20 15:58 40 05/22/20 15:47 Mechanical Ventilator 05/22/20 15:12 121 05/22/20 15:00 120 39 40 05/22/20 13:00 112 40 40 05/22/20 12:00 97.8 116 30 160/89 (112) 97 05/22/20 12:00 40 05/22/20 12:00 Mechanical Ventilator 05/22/20 11:41 114 05/22/20 11:00 112 35 98 Mechanical Ventilator 40 05/22/20 11:00 98 35 40 05/22/20 09:16 100 25 166/89 97 Intake and Output 05/22/20 05/23/20 19:00 07:00 Intake Total 1000 ml 900 ml Output Total 800 ml 400 ml Balance 200 ml 500 ml Free Water 300 ml 350 ml IV Total 100 ml Tube Feeding 600 ml 550 ml Output Urine Total 800 ml 400 ml # Voids 3 3 # Bowel Movements 2 General Appearance: WD/WN, no acute distress HEENT: normocephalic, atraumatic, status post trach Respiratory: chest wall non-tender Cardiovascular: normal rate, regular rhythm Abdomen: normal bowel sounds, soft, non tender, other - obese Extremities: no edema, other - L arm weakness and swelling without redness Neurologic: alert, oriented x 3, normal mood/affect Microbiology Date/Time Source Procedure Growth Status 05/21/20 06:05 Nasopharynx SARS-CoV-2 Antigen (Rapid)(HAMLET) - Final Complete Laboratory Tests 05/23/20 04:45: White Blood Count 12.4H, Red Blood Count 3.80L, Hemoglobin 10.7L, Hematocrit 34.2L, Mean Corpuscular Volume 90, Mean Corpuscular Hemoglobin 28.2, Mean Corpuscular Hemoglobin Concent 31.3L, Red Cell Distribution Width 15.4H, Platele t Count 453H, Mean Platelet Volume 6.5, Neutrophils (%) (Auto) 81.9H, Lymphocytes (%) (Auto) 7.8L, Monocytes (%) (Auto) 8.2, Eosinophils (%) (Auto) 0.7, Basophils (%) (Auto) 1.4, Sodium Level 138, Potassium Level 4.1, Chloride Level 99, Carbon Dioxide Level 35H, Anion Gap 4L, Blood Urea Nitrogen 18, Creatinine 0.5L, Estimat Glomerular Filtration Rate > 60, Glucose Level 122H, Calcium Level 9.5 Current Medications Medications (Trade) Dose Ordered Sig/Dennis Route PRN Reason Start Time Stop Time Status Last Admin Dose Admin Acetaminophen (Tylenol) 650 mg Q4H PRN GT Mild Pain (Pain Scale 1-3) 05/02/20 08:45 06/01/20 08:44 05/08/20 20:28 Acetaminophen/ Hydrocodone Bitart ([place] 10/325) 1 tab Q4H PRN ORAL For Pain 05/16/20 09:45 05/23/20 09:44 05/23/20 08:49 Amlodipine Besylate (Norvasc) 2.5 mg BID GT 05/02/20 18:00 06/02/20 08:59 05/23/20 08:47 Apixaban (Eliquis) 5 mg BID GT 05/21/20 09:00 08/19/20 08:59 05/23/20 08:47 Atorvastatin Calcium (Lipitor) 40 mg BEDTIME GT 05/18/20 21:00 08/16/20 20:59 05/22/20 21:50 Chlorhexidine Gluconate (Marlen-Hex 2%) 1 applic DAILY@2000 TOPIC 03/30/20 20:00 06/28/20 19:59 05/22/20 21:51 Famotidine (Pepcid) 20 mg Q12HR PRN GT HEARTBURN 05/08/20 13:15 06/01/20 15:14 05/13/20 08:52 Hydralazine HCl (Apresoline) 10 mg Q4H PRN IV For High Blood Pressure 03/30/20 12:15 06/28/20 12:14 05/23/20 05:44 Ipratropium [place] (Atrovent) 500 mcg Q6H PRN HHN Shortness of Breath 05/17/20 09:00 05/24/20 08:59 05/19/20 15:02 Lansoprazole (Prevacid) 30 mg DAILY GT 05/20/20 09:00 06/01/20 08:59 05/23/20 08:45 Lidocaine HCl (Xylocaine Jelly 2%) 1 applic Q6H PRN TOPIC For Pain 05/22/20 10:15 08/20/20 10:14 05/22/20 17:05 Loperamide HCl (Imodium) 2 mg Q6H PRN GT Diarrhea 05/21/20 08:00 06/20/20 07:59 05/23/20 05:42 Lorazepam (Ativan) 1 mg Q6H PRN GT For Anxiety 05/17/20 08:59 05/24/20 08:58 05/23/20 05:43 Metoprolol Tartrate (Lopressor) 25 mg Q12HR ORAL 05/17/20 21:00 08/15/20 20:59 05/23/20 08:48 Ondansetron HCl (Zofran) 4 mg Q6H PRN IVP Nausea & Vomiting 05/16/20 09:45 06/15/20 09:44 05/22/20 21:49 Quetiapine Fumarate (SEROqueL) 50 mg EVERY 8 HOURS GT 05/13/20 14:00 06/11/20 11:59 05/23/20 05:42 Sertraline HCl (Zoloft) 100 mg DAILY ORAL 05/23/20 09:00 06/22/20 08:59 05/23/20 08:47 Vitamin D (Vitamin D) 3,000 unit DAILY GT 05/18/20 09:00 06/17/20 08:59 05/23/20 08:47 Assessment/Plan Assessment/Plan 1.COVID-19 pneumonia. - Completed specific therapies - s/p steroid - s/p bactrim for PJP prophylaxis 2. DVT ppx - s/p Lovenox - added Eliquis 3. Hypertension - On Norvasc 4. Leukocytosis; resolved - ID following - Candidemia documented 03/18/20 5. Elevated LFT; still elevated but downtrending - positive Hep C; treated in the past with IF - Abd US, Abd CT don't show evidence of cholecystitis - Lipase/amylase wnl 6. Respiratory failure -Intubated 03/28/20; s/p tracheostomy 04/25/20 -Gradually weaned off sedation IOV 7. Left UE edema and weakness - CT head w/o contrast -> Negative for acute intracranial bleed or mass effect - seen by neuro - MRI brain per neuro -> however, [place] [facility] [place] -> Neuro recommends outpatient MRI brain 8. Pneumomediastinum - no PTX - now on T-piece 9. New onset vomiting with R sided abd pain - Abd US, abd CT - Zofran prn n/v - Dw surgery; No indication for surgical intervention at this time 10. Yeast UTI - ID following 11. BCx gram positive rods - ID following 12. Signs of depression - Will add Zoloft 13. Suprapubic pain - will order bladder scan Will wean down FiO2 as tolerated CXR shows bilateral interstitial changes? fibrosis? S/p PEG Off IV fluids On seroquel 50 mg PO TID; On Ativan and [place] Will discontinue PICC line and abx on discharge per ID recs The care of this patient was discussed with my supervising physician Time spent for this encounter was approximately 31 minutes Edilson Marinelli May 23, 2020 09:03
--- NOTE | 2020-05-23 09:30 | NUR ---
NURSE NOTES: post void residual resulted to 797ml. did in & out and drained 1Li of urine. will do again another PVR and per order, if patient still retaining, insert joseph in.
--- NOTE | 2020-05-23 09:37 | Nephrology Progress Note ---
Assessment/Plan Problem List: (1) Dehydration (2) Electrolyte imbalance (3) COVID-19 virus infection (4) Pneumonia (5) DMII (diabetes mellitus, type 2) (6) Protein malnutrition Assessment Azotemia, hypernatremia Hypoalbuminemia Staff Otilia bacteremia COVID-19 isolation, pneumonia, bilateral infiltrate Hypertension Diabetes mellitus History of smoking Plan May 23: Status unchanged. Labs reviewed. Patient remains tachycardic. In crease Lopressor to 50 mg twice a day. Blood pressure is stable. Medication list reviewed. May 22: Patient seen. Examined. Discussed with RN. Brownlee is out and voiding well. Labs reviewed. Renal parameters electrolytes stable. Medication list reviewed. Continue as is. May 21: Discussed with RN. Will discontinue Brownlee catheter. Will check for voiding. Meds reviewed. Check labs tomorrow. May 20: Status quo. Full code. Trach to vent. Feeding through GT. Labs reviewed. Medication list reviewed. Abnormal electrolyte addressed. Discussed with RN. May 19: Status quo. Labs reviewed. Medication list reviewed. Continue per consultants. Stable from renal standpoint of view. May 18: Patient seen. Low potassium addressed. Labs and medication list reviewed. Clinically improving. Continue per consultants. May 17: Patient seen. Discussed with RN Zenaida. Patient clinically improved. Liver enzymes and lower. Renal parameters stable. White blood cells within normal limit. Continue per consultants. May 16: Renal parameters stable. Acute elevation in liver function tests White BC with right-sided abdominal pain. Likely acute Karen cystitis. Continue per GI/surgery. Medication list reviewed. Continue to monitor electrolytes and renal parameters. May 15: Labs reviewed. Renal parameters stable. Patient remains full code. Is trached to vent and has PEG. May 14: Labs reviewed. Stable renal parameters. May 13: No labs drawn today. Stable from renal standpoint of view. Continue per consultants. May 12: Labs reviewed. Renal parameters stable. Status quo. Continue per consultants. May 11: No labs drawn today. Will check can panel tomorrow. Medication list reviewed. Patient remains full code. Continue per consultants. May 10: Labs reviewed. Serum sodium higher. Renal parameters and electrolytes stable. Medication list reviewed. Continue per consultants. May 09: Labs reviewed. Serum sodium 135. Continue to monitor electrolytes. Medication list reviewed. Continue per current management. May 08: Labs reviewed. Renal parameters stable. Medication list reviewed. Continue per consultants. May 07: No labs drawn today reviewed. Clinically stable. Medication list reviewed. Will check lab tomorrow. Continue per consultants. May 06: Labs reviewed. Renal parameters stable. Continue per consultants. May 05: Labs reviewed. Renal parameters stable. Patient is due to be transferred to SCU. Continue per consultants. Medication list reviewed. May 04: Labs reviewed. Renal parameters stable. Overall status unchanged. Remains full code. Fed through GT tube. Trach to vent. FiO2 45%. Continue per consultants. May 03: No CHEM panel drawn today. Patient clinically stable. Has trach to vent and PEG. Will check lab tomorrow. May 02: Labs reviewed. Status quo. Patient is trached and vented. Also has PEG. Is full code. Stable from renal standpoint of view. May 01: Labs reviewed. Status quo. Patient has trach connected to vent. Has PEG. He is full code. FiO2 50%. April 30: Status quo. Labs reviewed. Renal parameters stable. Medication list reviewed. April 29: Status quo. Received PEG yesterday. Has trach connected to vent. FiO2 40%. Labs reviewed. Medication list reviewed. Continue same April 28: Status quo. Labs reviewed. Renal parameters stable. Patient n.p.o. due for PEG insertion. IV changed to D5 normal saline. Continue per consultants. April 27: Status quo. Labs reviewed. Medication list reviewed. Stable from renal standpoint of view. Abnormal electrolytes addressed. April 26: Patient is now trached and connected to vent. FiO2 70%. Labs reviewed. Renal parameters stable. Medication list reviewed. Continue per consultants. April 25: Status quo. Full code. FiO2 55%. No labs drawn today. Continue to monitor electrolytes and renal parameters. Continue per consultants. April 24: Status quo. Full code. Intubated on ventilator. FiO2 65%. Labs reviewed. Renal parameters and electrolytes stable. April 23: Status unchanged. Full code. Intubated on ventilator. FiO2 75%. Labs reviewed. Renal parameters stable. Continue per consultants. April 22: Labs reviewed. Patient remains intubated on ventilator and full code. FiO2 90%. Day 77 hospitalization. Not much to add from renal standpoint of view April 21: No CHEM panel drawn today. FiO2 60%. Patient full code. Continue per consultants. April 20: Labs reviewed. Renal parameters stable. Patient remains full code. Intubated on ventilator with FiO2 currently at 70%. Continue per consultants. April 19: No labs drawn today. Remains full code on FiO2 of 100%. Continue per consultants. April 18: Status quo. Labs reviewed. Renal parameters stable. April 17: Status quo. Intubated on ventilator. Full code. Labs reviewed. Electrolytes and renal parameters stable. Continue per consultants. April 16: Girlfriend in the room. Patient awake. Intubated. Full code. Labs reviewed. Abnormal electrolyte addressed. Continue per consultants. April 15: Labs reviewed. Electrolytes and renal parameters stable. Patient full code. Continues to be intubated on ventilator. April 14: Status quo. Labs reviewed. Remains intubated on ventilator. Full code. Continue per consultants. April 13: Status quo. Labs reviewed. Renal parameters electrolytes stable. Continue per current treatment plan. April 12: On higher FiO2. Will resume Lasix daily. Continue to monitor electrolytes and renal parameters. Per consultants. April 11: FiO2 went up to 85%. Renal parameters and electrolytes reasonably well-maintained. Will monitor serum potassium. Will give IV Lasix. April 10: Status quo. Labs reviewed. Remains intubated on ventilator with FiO2 of 65%. Remains full code. Stable from renal standpoint to view. Repeat vitamin D level on April 08 pending April 09: Status quo. Labs reviewed. Stable from renal standpoint of view. Continue per consultants. April 08: Discussed with RN. Labs reviewed. Clinically improving. Requires lower PEEP. Continue per pulmonary. Continue to monitor renal parameters. April 07: Remains full code and on ventilator. Labs reviewed. Renal parameters and electrolytes stable. Continue per consultants. Blood pressure marginally improved. April 06: Full code. On ventilator. Blood pressure 80-90 systolic. IV Lasix discontinued. Free water through tube feeding ordered. Continue to monitor electrolytes and serum sodium. Down on fentanyl as possible. Discussed with PRIYANKA Brown. Clonidine patch discontinued. April 05: Status quo. Remains full code. Remains intubated. Labs reviewed. Renal parameters stable. Serum sodium 150 unchanged. Continue per consultants. April 04: Remains intubated and on ventilator. Remains full code. Labs r eviewed. Serum sodium 150 unchanged. Renal parameters stable. Continue per ID and pulmonary. April 03: Intubated. On ventilator. Full code. Labs reviewed. Serum sodium 150 unchanged. Continue to monitor renal parameters. Continue per pulmonary a nd ID. April 02: Full code. On ventilator. Discussed with RN. Serum sodium slightly higher. Will cut down on IV Lasix. Continue per consultants. Continue to monitor renal parameters and electrolytes. April 01: Full code. Remains on ventilator. Labs reviewed. Stable from renal standpoint of view. Continue per consultants. March 31: Full code . Remains intubated on ventilator. Labs reviewed. Patient appears toxic. Discussed with RN. Maintenance IV discontinued. Medication list reviewed. Blood pressure medication stopped due to low blood pressure. Levemir insulin stopped. Continue monitor blood sugar and sliding scale insulin. March 30: Full code. On ventilator. Labs reviewed. Clonidine patch dose increased. Lasix increased. 3% saline 1 time ordered. Continue to monitor electrolytes and renal parameters. March 29: Remains full code. On mechanical ventilation. On tube feeding. Will DC TPN. Will start on maintenance IV fluid. Continue to monitor renal parameters. March 28: On BiPAP. Full code. On TPN. Labs reviewed. Discussed with pharmacy. Continue as is. Watch serum potassium. March 27: Remains on BiPAP. No chemistry panel done today. Full code. On TPN. Will check lab tomorrow. March 26: Remains on BiPAP. Remains on TPN. Labs reviewed. Electrolytes and chemistries within normal limits. Continue as is. March 25: Remains on TPN. Labs reviewed. Discussed with pharmacy. Change IV Protonix to p.o. Continue 3% saline infusion with Lasix. Patient full code. March 24: Continue to be on TPN. Labs are reviewed. Aim to collect electrolytes. Discussed with pharmacy. Continue current consultants. March 23: Continues to be on TPN. Labs reviewed. Electrolytes and chemistries all acceptable. Discussed with pharmacy. Continue current management. March 22: On TPN. Labs reviewed. Low sodium noted. 3% saline to be continued. Continue to monitor electrolytes. Discussed with pharmacy. March 21: On TPN. Labs reviewed. Continue 3% saline and Lasix for mild hyponatremia. Continue TPN as these. Discussed with pharmacy. March 20: Remains on TPN. Labs reviewed. Serum sodium higher on IV Lasix and 3% saline infusion. Continue TPN as is. Continue to monitor renal parameters and electrolytes. Discussed with Dr. Mata March 19: Remains on TPN. Labs reviewed. Serum sodium 128. Will give 3% saline with IV Lasix. Continue to monitor electrolytes. No change in TPN composition. Discussed with pharmacy. March 18: Remains on TPN. Labs reviewed. Discussed with pharmacist. Will give 3 doses of IV Lasix 20 mg every 8 hours. Continue to monitor serum sodium electrolytes uric acid. White blood cells down. Continue per consultants. March 17: On TPN. Labs reviewed. Discussed with pharmacist. Sodium content increase. Continue to monitor CMP. Patient continues to have leukocytosis. March 16: On TPN. Labs reviewed. Discussed with pharmacist. Appropriate changes made. Continue to monitor electrolytes. March 15: Remains on TPN. Labs reviewed. Discussed with pharmacist. Continue per current management. March 14: Remains on TPN. Labs reviewed, stable. Vitamin D level low, replacement ordered. Continue to monitor electrolytes and renal parameters. March 13: Patient remains on TPN. Discussed with pharmacist. TPN's sodium content adjusted. Labs reviewed. Continue to monitor electrolytes. Blood pressure remains stable. Continue per consultants. March 12: Patient on TPN. Labs reviewed. CPK remains elevated. Abnormal electrolytes and high blood sugar discussed with pharmacist and TPN adjusted. Continue to monitor labs. Oral Protonix added. Ibuprofen discontinued. Can continue to monitor electrolytes and chemistries. Levemir for high blood sugar added. March 11: Patient on TPN. Labs as of 11:15 AM is still pending. Continue per current treatment plan. Will check labs and adjust TPN as needed. Continue per consultants. March 10: Patient on TPN. Labs reviewed. Electrolytes overall stable. CPK is elevated. Will monitor electrolyte, CPK level, lipid panel. Continue per consultants. Discussed with pharmacist. Discussed with RN. Nutritional eval uation noted. Previously: D5W 100 cc an hour Monitor electrolytes renal parameters TPN and Intralipid ordered Will follow Continue per consultants Dietary consult requested Subjective ROS Limited/Unobtainable: Yes Objective Objective Last 24 Hour Vital Signs Date Time Temp Pulse Resp B/P (MAP) Pulse Ox O2 Delivery O2 Flow Rate FiO2 05/23/20 09:10 131 36 40 05/23/20 08:48 128 154/95 05/23/20 08:47 128 154/95 05/23/20 08:00 97.3 128 20 154/95 (114) 95 05/23/20 08:00 Mechanical Ventilator 05/23/20 08:00 40 05/23/20 07:09 119 28 40 05/23/20 06:15 109 28 154/95 98 05/23/20 05:44 154/95 05/23/20 05:43 109 28 154/95 98 05/23/20 04:51 109 28 40 05/23/20 04:00 99 05/23/20 03:38 97.3 107 154/95 (114) 05/23/20 03:35 Mechanical Ventilator 05/23/20 03:35 40 05/23/20 03:30 100 22 40 05/23/20 00:57 98 30 40 05/22/20 23:55 100 22 149/89 98 05/22/20 23:33 40 05/22/20 23:30 100 149/89 (109) 05/22/20 23:30 102 05/22/20 23:30 Mechanical Ventilator 05/22/20 23:10 122 22 161/100 97 05/22/20 22:55 102 28 40 05/22/20 21:52 109 28 40 05/22/20 21:50 123 161/100 05/22/20 21:49 161/100 05/22/20 20:00 123 05/22/20 20:00 40 05/22/20 20:00 98.1 122 20 161/100 (120) 98 05/22/20 19:38 Mechanical Ventilator 05/22/20 19:15 114 33 40 05/22/20 17:35 120 24 151/88 97 05/22/20 17:05 121 25 157/90 98 05/22/20 17:05 121 157/90 05/22/20 17:00 105 45 40 05/22/20 16:28 96.8 121 25 157/90 (112) 98 05/22/20 15:58 40 05/22/20 15:47 Mechanical Ventilator 05/22/20 15:12 121 05/22/20 15:00 120 39 40 05/22/20 13:00 112 40 40 05/22/20 12:00 97.8 116 30 160/89 (112) 97 05/22/20 12:00 40 05/22/20 12:00 Mechanical Ventilator 05/22/20 11:41 114 05/22/20 11:00 112 35 98 Mechanical Ventilator 40 05/22/20 11:00 98 35 40 Intake and Output 05/22/20 05/23/20 19:00 07:00 Intake Total 1000 ml 900 ml Output Total 800 ml 400 ml Balance 200 ml 500 ml Free Water 300 ml 350 ml IV Total 100 ml Tube Feeding 600 ml 550 ml Output Urine Total 800 ml 400 ml # Voids 3 3 # Bowel Movements 2 Current Medications Medications (Trade) Dose Ordered Sig/Dennis Route PRN Reason Start Time Stop Time Status Last Admin Dose Admin Acetaminophen (Tylenol) 650 mg Q4H PRN GT Mild Pain (Pain Scale 1-3) 05/02/20 08:45 06/01/20 08:44 05/08/20 20:28 Acetaminophen/ Hydrocodone Bitart ([place] 10/325) 1 tab Q4H PRN ORAL For Pain 05/16/20 09:45 05/23/20 09:44 05/23/20 08:49 Amlodipine Besylate (Norvasc) 2.5 mg BID GT 05/02/20 18:00 06/02/20 08:59 05/23/20 08:47 Apixaban (Eliquis) 5 mg BID GT 05/21/20 09:00 08/19/20 08:59 05/23/20 08:47 Atorvastatin Calcium (Lipitor) 40 mg BEDTIME GT 05/18/20 21:00 08/16/20 20:59 05/22/20 21:50 Chlorhexidine Gluconate ([place]len-Hex 2%) 1 applic DAILY@2000 TOPIC 03/30/20 20:00 06/28/20 19:59 05/22/20 21:51 Famotidine (Pepcid) 20 mg Q12HR PRN GT HEARTBURN 05/08/20 13:15 06/01/20 15:14 05/13/20 08:52 Hydralazine HCl (Apresoline) 10 mg Q4H PRN IV For High Blood Pressure 03/30/20 12:15 06/28/20 12:14 05/23/20 05:44 Ipratropium [place] (Atrovent) 500 mcg Q6H PRN HHN Shortness of Breath 05/17/20 09:00 05/24/20 08:59 05/19/20 15:02 Lansoprazole (Prevacid) 30 mg DAILY GT 05/20/20 09:00 06/01/20 08:59 05/23/20 08:45 Lidocaine HCl (Xylocaine Jelly 2%) 1 applic Q6H PRN TOPIC For Pain 05/22/20 10:15 08/20/20 10:14 05/22/20 17:05 Loperamide HCl (Imodium) 2 mg Q6H PRN GT Diarrhea 05/21/20 08:00 06/20/20 07:59 05/23/20 05:42 Lorazepam (Ativan) 1 mg Q6H PRN GT For Anxiety 05/17/20 08:59 05/24/20 08:58 05/23/20 05:43 Metoprolol Tartrate (Lopressor) 25 mg Q12HR ORAL 05/17/20 21:00 08/15/20 20:59 05/23/20 08:48 Ondansetron HCl (Zofran) 4 mg Q6H PRN IVP Nausea & Vomiting 05/16/20 09:45 06/15/20 09:44 05/22/20 21:49 Quetiapine Fumarate (SEROqueL) 50 mg EVERY 8 HOURS GT 05/13/20 14:00 06/11/20 11:59 05/23/20 05:42 Sertraline HCl (Zoloft) 100 mg DAILY ORAL 05/23/20 09:00 06/22/20 08:59 05/23/20 08:47 Vitamin D (Vitamin D) 3,000 unit DAILY GT 05/18/20 09:00 06/17/20 08:59 05/23/20 08:47 Laboratory Tests 05/23/20 04:45: White Blood Count 12.4H, Red Blood Count 3.80L, Hemoglobin 10.7L, Hematocrit 34.2L, Mean Corpuscular Volume 90, Mean Corpuscular Hemoglobin 28.2, Mean Corpuscular Hemoglobin Concent 31.3L, Red Cell Distribution Width 15.4H, Platelet Count 453H, Mean Platelet Volume 6.5, Neutrophils (%) (Auto) 81.9H, Lymphocytes (%) (Auto) 7.8L, Monocytes (%) (Auto) 8.2, Eosinophils (%) (Auto) 0.7, Basophils (%) (Auto) 1.4, Sodium Level 138, Potassium Level 4.1, Chloride Level 99, Carbon Dioxide Level 35H, Anion Gap 4L, Blood Urea Nitrogen 18, Creatinine 0.5L, Estimat Glomerular Filtration Rate > 60, Glucose Level 122H, Calcium Level 9.5 Height (Feet): 5 Height (Inches): 10.00 Weight (Pounds): 243 General Appearance: no apparent distress EENT: other - Trach to vent Cardiovascular: tachycardia Respiratory/Chest: decreased breath sounds Abdomen: distended, other - PEG Rubin Cooper MD May 23, 2020 09:37
[2020-05-23] MEDS ORDERED: Carvedilol 6.25mg Tab GT SCH (09:45)
--- NOTE | 2020-05-23 10:25 | Surgery Progress Note ---
Surgery Progress Note Subjective Procedure Performed tracheostomy Additional Comments feels better today abd pain improved no n/v/f/c wbc 12k exam benign weaning Objective Last 24 Hour Vital Signs Date Time Temp Pulse Resp B/P (MAP) Pulse Ox O2 Delivery O2 Flow Rate FiO2 05/23/20 09:10 131 36 40 05/23/20 08:48 128 154/95 05/23/20 08:47 128 154/95 05/23/20 08:00 97.3 128 20 154/95 (114) 95 05/23/20 08:00 119 05/23/20 08:00 Mechanical Ventilator 05/23/20 08:00 40 05/23/20 07:09 119 28 40 05/23/20 06:15 109 28 154/95 98 05/23/20 05:44 154/95 05/23/20 05:43 109 28 154/95 98 05/23/20 04:51 109 28 40 05/23/20 04:00 99 05/23/20 03:38 97.3 107 154/95 (114) 05/23/20 03:35 Mechanical Ventilator 05/23/20 03:35 40 05/23/20 03:30 100 22 40 05/23/20 00:57 98 30 40 05/22/20 23:55 100 22 149/89 98 05/22/20 23:33 40 05/22/20 23:30 100 149/89 (109) 05/22/20 23:30 102 05/22/20 23:30 Mechanical Ventilator 05/22/20 23:10 122 22 161/100 97 05/22/20 22:55 102 28 40 05/22/20 21:52 109 28 40 05/22/20 21:50 123 161/100 05/22/20 21:49 161/100 05/22/20 20:00 123 05/22/20 20:00 40 05/22/20 20:00 98.1 122 20 161/100 (120) 98 05/22/20 19:38 Mechanical Ventilator 05/22/20 19:15 114 33 40 05/22/20 17:35 120 24 151/88 97 05/22/20 17:05 121 25 157/90 98 05/22/20 17:05 121 157/90 05/22/20 17:00 105 45 40 05/22/20 16:28 96.8 121 25 157/90 (112) 98 05/22/20 15:58 40 05/22/20 15:47 Mechanical Ventilator 05/22/20 15:12 121 05/22/20 15:00 120 39 40 05/22/20 13:00 112 40 40 05/22/20 12:00 97.8 116 30 160/89 (112) 97 05/22/20 12:00 40 05/22/20 12:00 Mechanical Ventilator 05/22/20 11:41 114 05/22/20 11:00 112 35 98 Mechanical Ventilator 40 05/22/20 11:00 98 35 40 I&O Intake and Output 05/22/20 05/23/20 19:00 07:00 Intake Total 1000 ml 900 ml Output Total 800 ml 400 ml Balance 200 ml 500 ml Free Water 300 ml 350 ml IV Total 100 ml Tube Feeding 600 ml 550 ml Output Urine Total 800 ml 400 ml # Voids 3 3 # Bowel Movements 2 Dressing: saturated Wound: clean Cardiovascular: RSR Respiratory: clear, decreased breath sounds Abdomen: soft, flat, non-tender, present bowel sounds, non-distended Extremities: no edema, no tenderness, no cyanosis Laboratory Tests Test 05/23/20 04:45 White Blood Count 12.4 K/UL (4.8-10.8) H Red Blood Count 3.80 M/UL (4.70-6.10) L Hemoglobin 10.7 G/DL (14.2-18.0) L Hematocrit 34.2 % (42.0-52.0) L Mean Corpuscular Volume 90 FL (80-99) Mean Corpuscular Hemoglobin 28.2 PG (27.0-31.0) Mean Corpuscular Hemoglobin Concent 31.3 G/DL (32.0-36.0) L Red Cell Distribution Width 15.4 % (11.6-14.8) H Platelet Count 453 K/UL (150-450) H Mean Platelet Volume 6.5 FL (6.5-10.1) Neutrophils (%) (Auto) 81.9 % (45.0-75.0) H Lymphocytes (%) (Auto) 7.8 % (20.0-45.0) L Monocytes (%) (Auto) 8.2 % (1.0-10.0) Eosinophils (%) (Auto) 0.7 % (0.0-3.0) Basophils (%) (Auto) 1.4 % (0.0-2.0) Sodium Level 138 MMOL/L (136-145) Potassium Level 4.1 MMOL/L (3.5-5.1) Chloride Level 99 MMOL/L (98-107) Carbon Dioxide Level 35 MMOL/L (21-32) H Anion Gap 4 mmol/L (5-15) L Blood Urea Nitrogen 18 mg/dL (7-18) Creatinine 0.5 MG/DL (0.55-1.30) L Estimat Glomerular Filtration Rate > 60 mL/min (>60) Glucose Level 122 MG/DL (74-106) H Calcium Level 9.5 MG/DL (8.5-10.1) Plan Problems: (1) Pneumonia (2) Staphylococcus aureus bacteremia (3) COVID-19 virus infection Assessment & Plan: prior now neg improving (4) Chest pain (5) Hypertension (6) Dehydration (7) Electrolyte imbalance (8) DMII (diabetes mellitus, type 2) (9) Protein malnutrition Assessment & Plan: DAILY ESTIMATED NEEDS: Needs based on Critical care, wound 81kg abw 22-28 kcals/kg 2712-4673 total kcals 1.25-2 g protein/kg 101-162 g total protein 25-30 mL/kg 6332-9570 total fluid mLs NUTRITION DIAGNOSIS: * Increased kcal/prot/micronutrients needs R/T wound healing as evidenced by pt w/ new multiple pressure injuries, 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 * Inadequate oral intake R/T clinical and respiratory status as evidenced by COVID-19 ++, on continuous BIPAP, prolonged meal refusals, pt is now on TPN, pt orally intubated (03/28), s/p trach placement (04/26), and s/p PEG placement (04/27), now on GT feeds. * Decreased sodium and fat needs r/t HTN and obesity as evidenced by pt w/ cardiac history, elev BP (159/98-> now improved, on BP meds and diuretics), BMI >30, obese per guidelines. (INACTIVE) CURRENT TF:Glucerna 1.5 goal of 50 + Prosource BID ENTERAL NUTRITION RECOMMENDATIONS: Glucerna 1.5 @ 50ml/hr x 24 hrs + Prosource 1pkt BID to provide 1200ml, 1800kcal, 99g +22g prot (121g total prot), 926ml free water * Maintain current TF order * Con't Prosource 1pkt BID (additional 22g prot) to better meet est prot needs. ADDITIONAL RECOMMENDATIONS: 1) Maintain calibrated bedscale wts 2) Monitor BGs closely w/ Solumedrol (POC glu wnl at this time) 3) Monitor lytes, replete as needed 4) Monitor TF tolerance: PEG placed 04/28, cont to increase TF to goal as tolerated 5) Wound healing: Add Michael BID (mix w/ 2-4oz of water) TF @ goal provides 100% RDI, add Vit C 500mg QD, ZnSO4 220mg [id number] (10) Respiratory insufficiency Assessment & Plan: 64-year-old male with respiratory insufficiency intubated in an intensive care unit. Patient has been unable to safely wean off ventilatory support. Surgery called to evaluate for tracheostomy. After careful evaluation patient is a candidate for tracheostomy. In the meantime will obtain consent. If consent obtained will proceed with scheduling. Thank you for your participation's care will follow recommendations improving trach okay agitated weaning sedation no n/v cont weaning transition to oral meds via g tube get off drips improving downgraded weaning well more alert and awake responsive will need placement trach collar consideration pending sub acute placement okay for placement cont trach care leave sutures in place as dissolvable recovering well fully awake now tolerating diet d/c planning awaiting placement (11) LFT elevation Assessment & Plan: leukocytosis lfts elevated no n/v US ordered trend labs abx US noted labs improved hold anticoag cont tf trend labs pain improved no n/v/f/c labs improved wbc resolved lft's trending down hold on procedure okay to resume anticoag ct head noted neuro input (12) Abdominal pain Assessment & Plan: episode of acute morgan - resolved within 24hrs intermittent wbc no fevers abd exam benign now intermittent c/o abd pain asking for dilaudid improved overall Booker Rausch May 23, 2020 10:25
--- NOTE | 2020-05-23 11:19 | NUR ---
PT NOTE Attempted to see patient for PT treatment. Patient currently sleeping, Martha MATHEW requesting not to wake patient. Will follow up tomorrow.
[2020-05-23] MEDS: Metoprolol Tartrate 100mg tab ORAL SCH ×2 (11:22→21:27)
--- NOTE | 2020-05-23 11:38 | General Progress Note ---
Subjective ROS Limited/Unobtainable: No Allergies: Coded Allergies: No Known Allergies (Unverified , 02/05/20) Objective Last 24 Hour Vital Signs Date Time Temp Pulse Resp B/P (MAP) Pulse Ox O2 Delivery O2 Flow Rate FiO2 05/23/20 11:25 86 15 40 05/23/20 11:22 131 154/95 05/23/20 09:10 131 36 40 05/23/20 08:48 128 154/95 05/23/20 08:47 128 154/95 05/23/20 08:00 97.3 128 20 154/95 (114) 95 05/23/20 08:00 119 05/23/20 08:00 Mechanical Ventilator 05/23/20 08:00 40 05/23/20 07:09 119 28 40 05/23/20 06:15 109 28 154/95 98 05/23/20 05:44 154/95 05/23/20 05:43 109 28 154/95 98 05/23/20 04:51 109 28 40 05/23/20 04:00 99 05/23/20 03:38 97.3 107 154/95 (114) 05/23/20 03:35 Mechanical Ventilator 05/23/20 03:35 40 05/23/20 03:30 100 22 40 05/23/20 00:57 98 30 40 05/22/20 23:55 100 22 149/89 98 05/22/20 23:33 40 05/22/20 23:30 100 149/89 (109) 05/22/20 23:30 102 05/22/20 23:30 Mechanical Ventilator 05/22/20 23:10 122 22 161/100 97 05/22/20 22:55 102 28 40 05/22/20 21:52 109 28 40 05/22/20 21:50 123 161/100 05/22/20 21:49 161/100 05/22/20 20:00 123 05/22/20 20:00 40 05/22/20 20:00 98.1 122 20 161/100 (120) 98 05/22/20 19:38 Mechanical Ventilator 05/22/20 19:15 114 33 40 05/22/20 17:35 120 24 151/88 97 05/22/20 17:05 121 25 157/90 98 05/22/20 17:05 121 157/90 05/22/20 17:00 105 45 40 05/22/20 16:28 96.8 121 25 157/90 (112) 98 05/22/20 15:58 40 05/22/20 15:47 Mechanical Ventilator 05/22/20 15:12 121 05/22/20 15:00 120 39 40 05/22/20 13:00 112 40 40 05/22/20 12:00 97.8 116 30 160/89 (112) 97 05/22/20 12:00 40 05/22/20 12:00 Mechanical Ventilator 05/22/20 11:41 114 Intake and Output0 05/22/20 05/23/20 19:00 07:00 Intake Total 1000 ml 900 ml Output Total 800 ml 400 ml Balance 200 ml 500 ml Free Water 300 ml 350 ml IV Total 100 ml Tube Feeding 600 ml 550 ml Output Urine Total 800 ml 400 ml # Voids 3 3 # Bowel Movements 2 Laboratory Tests 05/23/20 04:45: White Blood Count 12.4H, Red Blood Count 3.80L, Hemoglobin 10.7L, Hematocrit 34.2L, Mean Corpuscular Volume 90, Mean Corpuscular Hemoglobin 28.2, Mean Corpuscular Hemoglobin Concent 31.3L, Red Cell Distribution Width 15.4H, Platelet Count 453H, Mean Platelet Volume 6.5, Neutrophils (%) (Auto) 81.9H, Lymphocytes (%) (Auto) 7.8L, Monocytes (%) (Auto) 8.2, Eosinophils (%) (Auto) 0.7, Basophils (%) (Auto) 1.4, Sodium Level 138, Potassium Level 4.1, Chloride Level 99, Carbon Dioxide Level 35H, Anion Gap 4L, Blood Urea Nitrogen 18, Creatinine 0.5L, Estimat Glomerular Filtration Rate > 60, Glucose Level 122H, Calcium Level 9.5 Height (Feet): 5 Height (Inches): 10.00 Weight (Pounds): 243 General Appearance: no apparent distress EENT: normal ENT inspection Neck: supple Cardiovascular: normal rate Respiratory/Chest: decreased breath sounds Abdomen: hypoactive bowel sounds Extremities: non-tender Assessment/Plan Status: stable, unchanged Assessment/Plan: no event over night has diarrhea GTF abd us>>>reviewed CT>>>reviewed repeat labs on imodium Da Quintero MD May 23, 2020 11:38
[2020-05-23] MEDS ORDERED: Varibar Honey 250ml MC PRN (11:45)
[2020-05-23] MEDS ORDERED: Varibar Nectar 240ml MC PRN (11:45)
[2020-05-23] MEDS ORDERED: Varibar Pudding 230ml MC PRN (11:45)
[2020-05-23] MEDS ORDERED: Varibar Thin Liquid powder 148gm MC PRN (11:45)
[2020-05-23 12:00] VITALS: BP 123/68
--- NOTE | 2020-05-23 12:13 | NUR ---
INSURANCE CLINICALS FAXED TO [employer] T: [phone] #1 F: [phone] AND [employer]:JACQUELINE JAMES T: [phone] F: [phone]
--- NOTE | 2020-05-23 13:02 | NUR ---
RESPIRATORY NOTE: Pt wants to rest at this time. He was tired due to restless last night. Will try place him on t-piece later. No resp distress noted. PRIYANKA Bolivar aware.
--- NOTE | 2020-05-23 13:02 | Neurology Progress Note ---
Interim History Interim History ROS Limited/Unobtainable: No Events: remains unchanged, dc planning continues Objective Physical Exam Last Vital Signs Date Time Temp Pulse Resp B/P (MAP) Pulse Ox O2 Delivery O2 Flow Rate FiO2 05/23/20 12:00 97.2 81 19 123/68 (86) 97 05/23/20 12:00 40 05/23/20 12:00 Mechanical Ventilator 05/20/20 07:50 10.0 Laboratory Tests Test 05/23/20 04:45 White Blood Count 12.4 K/UL (4.8-10.8) H Red Blood Count 3.80 M/UL (4.70-6.10) L Hemoglobin 10.7 G/DL (14.2-18.0) L Hematocrit 34.2 % (42.0-52.0) L Mean Corpuscular Volume 90 FL (80-99) Mean Corpuscular Hemoglobin 28.2 PG (27.0-31.0) Mean Corpuscular Hemoglobin Concent 31.3 G/DL (32.0-36.0) L Red Cell Distribution Width 15.4 % (11.6-14.8) H Platelet Count 453 K/UL (150-450) H Mean Platelet Volume 6.5 FL (6.5-10.1) Neutrophils (%) (Auto) 81.9 % (45.0-75.0) H Lymphocytes (%) (Auto) 7.8 % (20.0-45.0) L Monocytes (%) (Auto) 8.2 % (1.0-10.0) Eosinophils (%) (Auto) 0.7 % (0.0-3.0) Basophils (%) (Auto) 1.4 % (0.0-2.0) Sodium Level 138 MMOL/L (136-145) Potassium Level 4.1 MMOL/L (3.5-5.1) Chloride Level 99 MMOL/L (98-107) Carbon Dioxide Level 35 MMOL/L (21-32) H Anion Gap 4 mmol/L (5-15) L Blood Urea Nitrogen 18 mg/dL (7-18) Creatinine 0.5 MG/DL (0.55-1.30) L Estimat Glomerular Filtration Rate > 60 mL/min (>60) Glucose Level 122 MG/DL (74-106) H Calcium Level 9.5 MG/DL (8.5-10.1) Neurologic Exam Objective PHYSICAL EXAMINATION: General: Pt is awake oriented and has insight to situation. Neuro: resting in bed watching television,Awake,alert oriented x4 language parameters intact, Comprehension intact PERRLA, No nystagmus with gaze. No facial droop tongue is midline. Hearing intact. No involuntary movement, bedbound gait not tested. Right upper extremity 3/5, left upper extremity unable to move, raise and squeeze my hand bilateral lower extremities 1/5. Impression/Recommendations Status: stable, unchanged Diagnostic Impression LABORATORY DATA: Reviewed. IMAGING CT Head: Negative for acute intracranial bleed or mass effect Mild frontal cortical volume loss Cervical soft tissue emphysema, also reported on recent chest radiograph 05/17: Repeat CT HEAD: Very questionable slightly more prominent right frontal deep white matter low-attenuation, if real could represent an evolving lacunar infarct rather than just routine deep white matter ischemic change. If clinically indicated, MRI may be useful to clarify Otherwise unchanged noncontrast findings, since 05/15/2020, with mild age-related volume loss and periventricular deep white matter ischemic change. No unusual contrast enhancing lesion demonstrated. Assessment and Rec's: 1. Possible Evolving Right Lacunar Stroke which could be contributing to his Left Upper Extremity weakness --> CT head Very questionable slightly more prominent right frontal deep white matter low-attenuation, if real could represent an evolving lacunar infarct rather than just routine deep white matter ischemic change. If clinically indicated, MRI may be useful- at this time MRI cannot be done here Would recommend as an outpatient. --> LUE edema, unable to raise arm --> CT Head imaging reviewed as above --> Continue PT/OT and he has dc planning for subacute d/w primary care team. continue current care 2. Covid 19 Disease, complicated --> s/p treatment. 3. 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 Smoker. 4. PNA Covid 19 Thank you for allowing us to participate in patient's care, Plan of care was reviewed with Dr. Manoj Lopez and he agrees with plan of care. Nina Zafar NP May 23, 2020 13:02
--- NOTE | 2020-05-23 14:17 | Infectious Diseases Prog Note ---
Assessment/Plan Assessment/Plan ASSESSMENT AND PLAN: 1. hx staph aureus bacteremia/mssa - s/p tx covid-19 +, hypoxia, sob, chest x-ray worse, ? PE, ? HCAP/aspiration pna trach/vent, joseph pneumomediastinum/subcutaneous emphysema, ? new hcap/aspiration pna e.coli uti, urine yeast likely a colonizer, sepsis, leukocytosis possible cholecystitis, abdominal pain, elevated lft's, abdominal CT and US noted 1/4 diphtheroids blood culture likely contaminant, f/u blood cultures ordered scrotal/penile pain - no cellulitis, + pain - ? urology evaluation - s/p cefepime, flagyl - sputum culture with yeast - likely colonizer, surveillance blood cultures negative - monitor labs and chest x-ray - monitor mild leukocytosis - continue per primary and consultants 2. covid-19 isolation removed - covid-19 recovered 3. Hypertension history. Blood pressure treatment primary care team. 4. Elevated blood sugars. Blood sugar treatment per primary care team. 5. No known drug allergies. 6. Social history is positive for smoking. 7. Family history is noncontributory. 8. MAR was noted. 9. Case was discussed with RN. 10. Continue treatment per primary consultants. Subjective HEENT: Reports: congestion Respiratory: Denies: shortness of breath Cardiovascular: Denies: chest pain Gastrointestinal/Abdominal: Reports: diarrhea; Denies: nausea Genitourinary: Denies: dysuria, hematuria Neurologic: Denies: headache Psychiatric: Denies: depression Skin: Denies: rash Hematologic: Denies: bleeding Musculoskeletal: Reports: pain Allergies: Coded Allergies: No Known Allergies (Unverified , 02/05/20) Objective Last 24 Hour Vital Signs Date Time Temp Pulse Resp B/P (MAP) Pulse Ox O2 Delivery O2 Flow Rate FiO2 05/23/20 13:01 74 16 40 05/23/20 12:00 97.2 81 19 123/68 (86) 97 05/23/20 12:00 40 05/23/20 12:00 84 05/23/20 12:00 Mechanical Ventilator 05/23/20 11:25 86 15 40 05/23/20 11:22 131 154/95 05/23/20 09:10 131 36 40 05/23/20 08:48 128 154/95 05/23/20 08:47 128 154/95 05/23/20 08:00 97.3 128 20 154/95 (114) 95 05/23/20 08:00 119 05/23/20 08:00 Mechanical Ventilator 05/23/20 08:00 40 05/23/20 07:09 119 28 40 05/23/20 06:15 109 28 154/95 98 05/23/20 05:44 154/95 05/23/20 05:43 109 28 154/95 98 05/23/20 04:51 109 28 40 05/23/20 04:00 99 05/23/20 03:38 97.3 107 154/95 (114) 05/23/20 03:35 Mechanical Ventilator 05/23/20 03:35 40 05/23/20 03:30 100 22 40 05/23/20 00:57 98 30 40 05/22/20 23:55 100 22 149/89 98 05/22/20 23:33 40 05/22/20 23:30 100 149/89 (109) 05/22/20 23:30 102 05/22/20 23:30 Mechanical Ventilator 05/22/20 23:10 122 22 161/100 97 05/22/20 22:55 102 28 40 05/22/20 21:52 109 28 40 05/22/20 21:50 123 161/100 05/22/20 21:49 161/100 05/22/20 20:00 123 05/22/20 20:00 40 05/22/20 20:00 98.1 122 20 161/100 (120) 98 05/22/20 19:38 Mechanical Ventilator 05/22/20 19:15 114 33 40 05/22/20 17:35 120 24 151/88 97 05/22/20 17:05 121 25 157/90 98 05/22/20 17:05 121 157/90 05/22/20 17:00 105 45 40 05/22/20 16:28 96.8 121 25 157/90 (112) 98 05/22/20 15:58 40 05/22/20 15:47 Mechanical Ventilator 05/22/20 15:12 121 05/22/20 15:00 120 39 40 Height (Feet): 5 Height (Inches): 10.00 Weight (Pounds): 243 General Appearance: no acute distress HEENT: normocephalic, atraumatic, anicteric, mucous membranes moist Respiratory/Chest: lungs clear, normal breath sounds, no respiratory distress, no accessory muscle use Cardiovascular: normal rate, regular rhythm, no gallop/murmur, no JVD Abdomen: normal bowel sounds, soft, non tender, no organomegaly, non distended Genitourinary: other - no joseph Extremities: no cyanosis Skin: no rash 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 Note nonvisualization of the left hepatic lobe, spleen, pancreas, abdominal aorta Gallbladder sludge. Negative for biliary ductal dilatation Unremarkable kidneys Liver demonstrates diffusely increased echogenicity, consistent with diffuse hepatocellular disease, most likely fatty change. CT chest: IMPRESSION: There are mild subpleural ground-glass and consolidating infiltrates in the dependent portions of both lower lobes and to lesser degree the upper lobes consistent with bilateral pneumonia. The infiltrates are typical for Covid 19. No evidence of pulmonary embolus. CT abdomen and pelvis: IMPRESSION: 1. Scattered hepatic hypodense lesions, too small to characterize on this examination without intravenous contrast. 2. Colonic diverticulosis without evidence of acute diverticulitis. 3. Scattered enlarged mesenteric lymph nodes, presumably reactive. teral pneumonia. The infiltrates are typical for Covid 19. No evidence of pulmonary embolus. Chest x-ray - 12/19/19 - Indication: Shortness of breath Technique: One view of the chest Comparison: 02/17/2020 Findings: Interim worsening of bilateral infiltrates, particularly on the right. The heart is borderline enlarged. The pleural spaces are clear. Left arm PICC is again demonstrated Impression: Worsening bilateral infiltrates over one day, likely pneumonia CT chest - 02/19/20 - IMPRESSION: Increased extensive patchy ground-glass opacities and densities throughout the lungs, suggestive of Covid 19 infection. Chest x-ray 02/23/20 - Procedure: XRAY Chest 1v As Indication: Reason For Exam: INFECT Technique: One view of the chest Comparison: 02/20/2020 Findings: Allowing for differences in exposure technique, bilateral mid and lower lung infiltrates are probably unchanged. The heart size is normal. The pleural spaces are clear. Impression: Unchanged, over 4 days, findings as above. Chest x-ray - 02/25/20 - FINDINGS: Lungs: Interval slightly worsening bilateral airspace disease. Pleural space: Unremarkable. No pneumothorax. Heart: Unremarkable. No cardiomegaly. Mediastinum: Unremarkable. Bones/joints: Unremarkable. IMPRESSION: Interval slightly worsening bilateral airspace disease. Chest x-ray - 03/02/20 - Procedure: XRAY Chest 1v Indication: Shortness of breath Technique: One view of the chest Comparison: 02/25/2020 Findings: Bilateral interstitial and airspace infiltrates are unchanged. The heart size is normal. Left arm PICC is again demonstrated Impression: Unchanged, over one day, findings as above. Chest x-ray - 03/06/20 - Procedure: XRAY Chest 1v Indication: Shortness of breath Technique: One view of the chest Comparison: 03/02/2020 Findings: Bilateral infiltrates are unchanged. Normal heart size. Pleural spaces are clear Chest x-ray - 03/12/10 - Impression: COMPARISON: Chest radiograph March 06, 2020. FINDINGS/IMPRESSION: Improving basilar infiltrates. Follow chest radiograph recommended. The upper lung finley are clear. No pneumothorax. Stable cardiomegaly. Stable left upper extremity PICC line. anged, over 4 days, findings as above. Chest x-ray - 03/17/20 - Procedure: XRAY Chest 1v Indication: Shortness of breath Technique: One view of the chest Comparison: 03/12/2020 Findings: Left arm PICC is again demonstrated. Infiltrates are unchanged. The heart size is upper limits of normal. Impression: Unchanged, over 5 days, findings as above. Abdominal US - IMPRESSION: 1. Gallbladder is normal. 2. Hepatic steatosis. 3. 1.7 cm cyst right kidney. Impression. Chest x-ray - Procedure: XRAY Chest 1v Indication: Shortness of breath Technique: One view of the chest Comparison: 03/17/2020 Findings: Bilateral right greater than left infiltrates again demonstrated. The heart size is normal. There is a left arm PICC in good position. Impression: Unchanged, over 5 days, findings as above. Chest x-ray - 03/29/20 - Procedure: XRAY Chest 1v Indication: Cough Technique: One view of the chest Comparison: 03/28/2020 Findings: Bilateral infiltrates are unchanged or slightly worse, allowing for differences in exposure technique. The pleural spaces are clear. The heart size is normal. Stable satisfactory position of endotracheal tube, left arm PICC. Orogastric tube has retracted somewhat the position remains satisfactory. Impression: Stable to slightly worse bilateral infiltrates. Otherwise little change manager one day Chest x-ray - 03/31/20 - Procedure: XRAY Chest 1v Indication: Post endotracheal tube repositioning Technique: One view of the chest Comparison: 3 hours earlier Findings: Interim advancement of endotracheal tube, tip projecting approximately 5 cm above the sunny. Interim advancement of orogastric tube as well. Bilateral infiltrates are unchanged. Left arm PICC remains Impression: Improved and now satisfactory tube positions as described. ICU nurse Maeve notified at the time of interpretation Chest x-ray - 04/02/20 - COMPARISON: Chest x-rays dated 03/31/20 and 03/12/20. FINDINGS: Lungs: No significant change in bilateral prominent interstitial markings. The lungs are otherwise clear without focal consolidation. Pleural space: Unremarkable. The costophrenic angles are sharp. No visible pneumothorax. Heart: Unremarkable. No cardiomegaly. Mediastinum: Unremarkable. Bones/joints: Unremarkable. Tubes, lines and devices: Endotracheal tube tip 6.5 cm above the sunny. NG tube tip in the distal stomach. Telemetry leads overlie the thorax. IMPRESSION: No significant change in bilateral prominent interstitial markings. Procedure: XRAY Chest 1v Procedure: XRAY Chest 1v Reason for study: Shortness of breath 04/06/20 - Comparison films: 04/02/2020. FINDINGS: Endotracheal tube and NG tube remain in place. There is worsening of right basilar infiltrates. Some haziness in left lung base unchanged. Cardiac and mediastinal silhouette are within normal limits. CP angles are sharp. The bony thorax appear unremarkable. IMPRESSION: Worsening of right basilar infiltrate. Chest x-ray - 04/09/20 - Procedure: XRAY Chest 1v FILM CXR 1 VIEW INDICATION: Infection COMPARISON: April 05, 2020 FINDINGS: Single frontal view demonstrates a normal cardiomediastinal silhouette. Endotracheal tube in place with tip above the sunny. Elevation of the right hemidiaphragm. Interstitial prominence with bilateral lower lobe infiltrates. Lung bases appear worse from the prior exam. Small right effusion. Right-sided PICC line with tip in the superior vena cava. Enteric tube in place. IMPRESSION: Interstitial prominence and bilateral lower lobe pneumonia with worsening appearance from the prior study. Chest x-ray - 04/12/20 - Procedure: XRAY Chest 1v Indication: Shortness of breath Technique: One view of the chest Comparison: 04/09/2020 Findings: Stable satisfactory tube and line positions. Bilateral infiltrates have worsened slightly since prior study. The heart size is normal. Impression: Worsening bilateral infiltrates, over 3 days Chest x-ray - 04/15/20 - COMPARISON: 02/11/21. FINDINGS: Lungs: There is been no significant change in mild to moderate patchy diffuse bilateral alveolar infiltrates which are most prominent in the lung bases. Pleural space: Unremarkable. No pneumothorax. Heart: Unremarkable. No cardiomegaly. Mediastinum: Unremarkable. Bones/joints: Unremarkable. Tubes, lines and devices: There is an endotracheal tube, right-sided PICC line and NG tube in good position. IMPRESSION: There is been no significant change in mild to moderate patchy diffuse bilateral alveolar infiltrates which are most prominent in the lung bases. Chest x-ray - 04/18/20 - Procedure: XRAY Chest 1v Indication: Cough Technique: One view of the chest Comparison: 04/15/2020 Findings: Less optimal inspiration currently than previously. Stable satisfactory positions of endotracheal and orogastric tubes and right arm PICC. Bilateral infiltrates are again demonstrated, unchanged. Impression: Unchanged, over 3 days, findings as above. Chest x-ray - 04/21/20 - Procedure: XRAY Chest 1v Indication: Dyspnea Technique: One view of the chest Comparison: 04/18/2020 Findings: Stable tube and line positions. Bilateral infiltrates are unchanged Impression: Unchanged, over one day, findings as above. Procedure: XRAY Chest 1v Procedure: XRAY Chest 1v Reason for study: Reason For Exam: SOB Chest x-ray - 04/25/20 - Comparison films: 04/21/2020. FINDINGS: Endotracheal tube, NG tube and right PICC line remain in place. Vascularity is normal. Bilateral infiltrates are unchanged. Cardiac and mediastinal silhouette are within normal limits. CP angles are sharp. The bony thorax appear unremarkable. IMPRESSION: NO SIGNIFICANT CHANGE COMPARED TO PREVIOUS EXAM. Chest x-rasy - 04/30/20 - FINDINGS: Lungs: Bilateral patchy pulmonary opacities concerning for pneumonia, not significantly changed compared to the prior chest x-ray. Pleural space: Unremarkable. The costophrenic angles are sharp. No visible pneumothorax. Heart: Unremarkable. No cardiomegaly. Mediastinum: Unremarkable. Bones/joints: Unremarkable. Tubes, lines and devices: Tracheostomy tube in place, with expected positioning. Telemetry leads overlie the thorax. Right arm PICC with catheter tip in the SVC region. IMPRESSION: Bilateral patchy pulmonary opacities concerning for pneumonia, not significantly changed compared to the prior chest x-ray. Chest x-ray - 05/12/20 - Procedure: XRAY Chest 1v Procedure: XRAY Chest 1v Reason for study: Shortness of breath. Comparison films: 04/30/2020. FINDINGS: Tracheostomy and right PICC line remain in place. There is new pneumomediastinum as well as subcutaneous cutaneous emphysema noted in the right supraclavicular region. Slight increase in diffuse bilateral alveolar densities likely worsening infiltrates and/or edema. Cardiac and mediastinal silhouette are within normal limits. CP angles are sharp. The bony thorax appear unremarkable. IMPRESSION: Slight worsening of bilateral basilar densities, infiltrates and/or edema. New pneumomediastinum and subcutaneous cutaneous air in the right supraclavicular region. Chest x-rasy - 05/14/20 - Procedure: XRAY Chest 1v EXAM: XR Chest, 1 View CLINICAL HISTORY: INFECT TECHNIQUE: Frontal view of the chest. COMPARISON: 05/12/20 FINDINGS: Since the prior examination, there is marked increase in pneumomediastinum as well as soft tissue gas to the chest wall and supraclavicular regions, right greater than left. Redemonstrated appropriately positioned tracheostomy. Tip of right arm PICC is in the SVC. No clear pneumothorax given limitations due to overlying chest wall gas. Extensive bilateral interstitial and airspace infiltrates appear similar to the prior examination, but suspect slight progression in the left upper lobe. IMPRESSION: Increasing pneumomediastinum and chest wall gas. Extensive bilateral pulmonary infiltrates, progressed in the left upper lobe. CT abdomen an pelvis: Impression: Distended gallbladder. Somewhat dense material within the bladder lumen probably represents sludge. However, the possibility that this represents blood should also be considered given the relatively high attenuation. There is also biliary ductal dilatation, without definite downstream obstructive lesion. MRCP may be useful for better characterization Right renal lesion, demonstrating soft tissue attenuation. Possibly a hemorrhagic cyst given cystic appearance on prior study. However, the possibly of solid neoplasm should also be considered. Extensive bilateral basilar pulmonary parenchymal opacification likely related to ongoing pneumonia Small amount of free intraperitoneal fluid Subcutaneous emphysema and pneumomediastinum, also reported on prior chest radiograph Clinical history diverticulosis Gastrostomy Hepatic and left renal cysts Joseph catheter Findings discussed by phone with Dr. Rausch at the time of interpretation Abdominal US: Impression: Very limited exam as described. Note nonvisualization of the left hepatic lobe, spleen, pancreas, abdominal aorta Gallbladder sludge. Negative for biliary ductal dilatation Unremarkable kidneys Liver demonstrates diffusely increased echogenicity, consistent with diffuse hepatocellular disease, most likely fatty change. Chest x-ray - 05/18/20 - Procedure: XRAY Chest 1v Indication: Shortness of breath Technique: One view of the chest Comparison: 05/17/2020 Findings: Subcutaneous emphysema and cervical emphysema appears slightly improved. Pneumomediastinum persists. Bilateral infiltrates are probably unchanged, allowing for lower lung volumes on the current exam. Tracheostomy, right arm PICC are again demonstrated. The heart size is normal. Impression: Slightly decreased subcutaneous emphysema. Otherwise little change manager one day Chest x-ray - 05/20/20 - COMPARISON: 05/18/2020 FINDINGS: Lungs: Unchanged extensive interstitial and airspace opacities throughout the lungs. Pleural space: No pleural effusion. No pneumothorax. Heart: Unremarkable. No cardiomegaly. Soft tissues: Redemonstrated but improved subcutaneous emphysema. Tubes, lines and devices: Tracheostomy cannula and right upper extremity PICC unchanged. IMPRESSION: Unchanged appearance of the lungs. No new acute abnormality. Decreasing subcutaneous emphysema. Microbiology Date/Time Source Procedure Growth Status 05/21/20 06:05 Nasopharynx SARS-CoV-2 Antigen (Rapid)(HAMLET) - Final Complete 05/16/20 20:00 Blood Blood Culture - Preliminary NO GROWTH AFTER 4 DAYS Resulted 05/14/20 07:00 Urine,Clean Catch Urine Culture - Final Escherichia Coli Kat Parapsilosis Complete 04/14/20 16:35 Stool Clostridium difficile Toxin Assay - Final Complete Microbiology Date/Time Source Procedure Growth Status 05/21/20 06:05 Nasopharynx SARS-CoV-2 Antigen (Rapid)(HAMLET) - Final Complete Laboratory Tests Test 05/23/20 04:45 White Blood Count 12.4 K/UL (4.8-10.8) H Red Blood Count 3.80 M/UL (4.70-6.10) L Hemoglobin 10.7 G/DL (14.2-18.0) L Hematocrit 34.2 % (42.0-52.0) L Mean Corpuscular Volume 90 FL (80-99) Mean Corpuscular Hemoglobin 28.2 PG (27.0-31.0) Mean Corpuscular Hemoglobin Concent 31.3 G/DL (32.0-36.0) L Red Cell Distribution Width 15.4 % (11.6-14.8) H Platelet Count 453 K/UL (150-450) H Mean Platelet Volume 6.5 FL (6.5-10.1) Neutrophils (%) (Auto) 81.9 % (45.0-75.0) H Lymphocytes (%) (Auto) 7.8 % (20.0-45.0) L Monocytes (%) (Auto) 8.2 % (1.0-10.0) Eosinophils (%) (Auto) 0.7 % (0.0-3.0) Basophils (%) (Auto) 1.4 % (0.0-2.0) Sodium Level 138 MMOL/L (136-145) Potassium Level 4.1 MMOL/L (3.5-5.1) Chloride Level 99 MMOL/L (98-107) Carbon Dioxide Level 35 MMOL/L (21-32) H Anion Gap 4 mmol/L (5-15) L Blood Urea Nitrogen 18 mg/dL (7-18) Creatinine 0.5 MG/DL (0.55-1.30) L Estimat Glomerular Filtration Rate > 60 mL/min (>60) Glucose Level 122 MG/DL (74-106) H Calcium Level 9.5 MG/DL (8.5-10.1) Current Medications Medications (Trade) Dose Ordered Sig/Dennis Route PRN Reason Start Time Stop Time Status Last Admin Dose Admin Acetaminophen (Tylenol) 650 mg Q4H PRN GT Mild Pain (Pain Scale 1-3) 05/02/20 08:45 06/01/20 08:44 05/08/20 20:28 Apixaban (Eliquis) 5 mg BID GT 05/21/20 09:00 08/19/20 08:59 05/23/20 08:47 Atorvastatin Calcium (Lipitor) 40 mg BEDTIME GT 05/18/20 21:00 08/16/20 20:59 05/22/20 21:50 Barium Sulfate (Varibar Honey) 250 ml NOW PRN MC RAD 05/23/20 11:45 05/26/20 11:36 Barium Sulfate (Varibar Bear Grass) 240 ml NOW PRN MC RAD 05/23/20 11:45 05/26/20 11:36 Barium Sulfate (Varibar Pudding) 230 ml NOW PRN MC RAD 05/23/20 11:45 05/26/20 11:36 Barium Sulfate (Varibar Thin Liquid powder) 148 gm NOW PRN MC RAD 05/23/20 11:45 05/26/20 11:36 Chlorhexidine Gluconate (Marlen-Hex 2%) 1 applic DAILY@2000 TOPIC 03/30/20 20:00 06/28/20 19:59 05/22/20 21:51 Famotidine (Pepcid) 20 mg Q12HR PRN GT HEARTBURN 05/08/20 13:15 06/01/20 15:14 05/13/20 08:52 Hydralazine HCl (Apresoline) 10 mg Q4H PRN IV For High Blood Pressure 03/30/20 12:15 06/28/20 12:14 05/23/20 05:44 Ipratropium Vona (Atrovent) 500 mcg Q6H PRN HHN Shortness of Breath 05/17/20 09:00 05/24/20 08:59 05/19/20 15:02 Lansoprazole (Prevacid) 30 mg DAILY GT 05/20/20 09:00 06/01/20 08:59 05/23/20 08:45 Lidocaine HCl (Xylocaine Jelly 2%) 1 applic Q6H PRN TOPIC For Pain 05/22/20 10:15 08/20/20 10:14 05/22/20 17:05 Loperamide HCl (Imodium) 2 mg Q6H PRN GT Diarrhea 05/21/20 08:00 06/20/20 07:59 05/23/20 05:42 Lorazepam (Ativan) 1 mg Q6H PRN GT For Anxiety 05/17/20 08:59 05/24/20 08:58 05/23/20 05:43 Metoprolol Tartrate (Lopressor) 100 mg Q12HR ORAL 05/23/20 11:15 08/21/20 20:59 05/23/20 11:22 Ondansetron HCl (Zofran) 4 mg Q6H PRN IVP Nausea & Vomiting 05/16/20 09:45 06/15/20 09:44 05/22/20 21:49 Quetiapine Fumarate (SEROqueL) 50 mg EVERY 8 HOURS GT 05/13/20 14:00 06/11/20 11:59 05/23/20 14:11 Sertraline HCl (Zoloft) 100 mg DAILY ORAL 05/23/20 09:00 06/22/20 08:59 05/23/20 08:47 Vitamin D (Vitamin D) 3,000 unit DAILY GT 05/18/20 09:00 06/17/20 08:59 05/23/20 08:47 Kisha Salazar MD May 23, 2020 14:17
--- NOTE | 2020-05-23 14:18 | NUR ---
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 ROOM 222 BED Gaye INTERIANO MADE AWARE.
--- NOTE | 2020-05-23 15:23 | NUR ---
RESPIRATORY NOTE: Placed pt on trach collar with cool aerosol 10L 40%FiO2, pt desat to 81%. Increased FiO2 to 60%, pt saturates at 92-94%, tachypneic RR>28bpm but tolerating well.HR 82bpm. Will continue to monitor. PRIYANKA Thomas aware.
--- NOTE | 2020-05-23 15:51 | Cardiology Progress Note ---
Assessment/Plan Assessment/Plan Acute covid 19 pneumonia hypoxemia infiltrate bilat bacteremia hypernatremia / hyponatremia mild abn lfts tachy post intubation fever fungemia dvt upper ext right sided abd pain urinary retention on trach collar off the vent looking good again s/p trach / peg afebrile now hypoxemia unlikely cardiac related back on full dose anticoag due to dvt ue cr is stable d/w shilpi diallo for bp to be transferred to [facility] care facili[facility] abd paijn resolved after i/o cath with 1 liter of urine !! Subjective Cardiovascular: Denies: chest pain, lightheadedness Respiratory: Denies: shortness of breath Gastrointestinal/Abdominal: Denies: abdominal pain Genitourinary: Denies: burning Objective Last 24 Hour Vital Signs Date Time Temp Pulse Resp B/P (MAP) Pulse Ox O2 Delivery O2 Flow Rate FiO2 05/23/20 15:22 Trach Collar 10.0 60 05/23/20 13:01 74 16 40 05/23/20 12:00 97.2 81 19 123/68 (86) 97 05/23/20 12:00 40 05/23/20 12:00 84 05/23/20 12:00 Mechanical Ventilator 05/23/20 11:25 86 15 40 05/23/20 11:22 131 154/95 05/23/20 09:10 131 36 40 05/23/20 08:48 128 154/95 05/23/20 08:47 128 154/95 05/23/20 08:00 97.3 128 20 154/95 (114) 95 05/23/20 08:00 119 05/23/20 08:00 Mechanical Ventilator 05/23/20 08:00 40 05/23/20 07:09 119 28 40 05/23/20 06:15 109 28 154/95 98 05/23/20 05:44 154/95 05/23/20 05:43 109 28 154/95 98 05/23/20 04:51 109 28 40 05/23/20 04:00 99 05/23/20 03:38 97.3 107 154/95 (114) 05/23/20 03:35 Mechanical Ventilator 05/23/20 03:35 40 05/23/20 03:30 100 22 40 05/23/20 00:57 98 30 40 05/22/20 23:55 100 22 149/89 98 05/22/20 23:33 40 05/22/20 23:30 100 149/89 (109) 05/22/20 23:30 102 05/22/20 23:30 Mechanical Ventilator 05/22/20 23:10 122 22 161/100 97 05/22/20 22:55 102 28 40 05/22/20 21:52 109 28 40 05/22/20 21:50 123 161/100 05/22/20 21:49 161/100 05/22/20 20:00 123 05/22/20 20:00 40 05/22/20 20:00 98.1 122 20 161/100 (120) 98 05/22/20 19:38 Mechanical Ventilator 05/22/20 19:15 114 33 40 05/22/20 17:35 120 24 151/88 97 05/22/20 17:05 121 25 157/90 98 05/22/20 17:05 121 157/90 05/22/20 17:00 105 45 40 05/22/20 16:28 96.8 121 25 157/90 (112) 98 05/22/20 15:58 40 General Appearance: no apparent distress, alert Neck: supple Cardiovascular: normal rate Respiratory/Chest: lungs clear - ant Abdomen: normal bowel sounds, non tender, soft Extremities: no swelling Intake and Output 05/22/20 05/23/20 19:00 07:00 Intake Total 1000 ml 900 ml Output Total 800 ml 400 ml Balance 200 ml 500 ml Free Water 300 ml 350 ml IV Total 100 ml Tube Feeding 600 ml 550 ml Output Urine Total 800 ml 400 ml # Voids 3 3 # Bowel Movements 2 Laboratory Tests Test 05/23/20 04:45 White Blood Count 12.4 K/UL (4.8-10.8) H Red Blood Count 3.80 M/UL (4.70-6.10) L Hemoglobin 10.7 G/DL (14.2-18.0) L Hematocrit 34.2 % (42.0-52.0) L Mean Corpuscular Volume 90 FL (80-99) Mean Corpuscular Hemoglobin 28.2 PG (27.0-31.0) Mean Corpuscular Hemoglobin Concent 31.3 G/DL (32.0-36.0) L Red Cell Distribution Width 15.4 % (11.6-14.8) H Platelet Count 453 K/UL (150-450) H Mean Platelet Volume 6.5 FL (6.5-10.1) Neutrophils (%) (Auto) 81.9 % (45.0-75.0) H Lymphocytes (%) (Auto) 7.8 % (20.0-45.0) L Monocytes (%) (Auto) 8.2 % (1.0-10.0) Eosinophils (%) (Auto) 0.7 % (0.0-3.0) Basophils (%) (Auto) 1.4 % (0.0-2.0) Sodium Level 138 MMOL/L (136-145) Potassium Level 4.1 MMOL/L (3.5-5.1) Chloride Level 99 MMOL/L (98-107) Carbon Dioxide Level 35 MMOL/L (21-32) H Anion Gap 4 mmol/L (5-15) L Blood Urea Nitrogen 18 mg/dL (7-18) Creatinine 0.5 MG/DL (0.55-1.30) L Estimat Glomerular Filtration Rate > 60 mL/min (>60) Glucose Level 122 MG/DL (74-106) H Calcium Level 9.5 MG/DL (8.5-10.1) Microbiology Date/Time Source Procedure Growth Status 05/21/20 06:05 Nasopharynx SARS-CoV-2 Antigen (Rapid)(HAMLET) - Final Complete Objective pt seen persoanlly Manan Awan MD May 23, 2020 15:51
[2020-05-23 16:00] VITALS: BP 130/72
--- NOTE | 2020-05-23 19:17 | NUR ---
NURSE HAND-OFF REPORT: Important Events on Shift:on trache collar, cool mist 10 li, 60% started @1515, tolerating until end of shift Patient Status: full code Diet: TF Pending Orders: [] Pending Results/Labs:[] Pending MD notification:[] Latest Vital Signs: Temperature 97.8 , Pulse 87 , B/P 130 /72 , Respiratory Rate 19 , O2 SAT 95 , Mechanical Ventilator, O2 Flow Rate 10.0 . Vital Sign Comment: [] EKG Rhythm: Sinus Tachycardia Rhythm change?: N MD Notified?: -Dr. Chito INTERIANO Response: No New Orders Received Latest Hassan Fall Score: 35 Fall Risk: Medium Risk Safety Measures: Call light Within Reach, Bed Alarm Zone 2, Side Rails Side Rails x3, Bed position Low and Locked. Fall Precautions: Yellow Socks Yellow Gown Door Sign Patient Fall Education Report given to gregorio dobbins
--- NOTE | 2020-05-23 19:20 | NUR ---
NURSE NOTES: Received pt and report from PRIYANKA Thomas. Observed pt asleep in bed; arousable to voice. Pt is A/Ox4. 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 ALBERT PICC line intact, asymptomatic, and patent. Pt has a T-piece in placed with aerosol therapy of 10L O2, 60% FiO2. O2 saturation at 100%. No SOB noted; breathing is even and unlabored. G-tube feeding of Glucerna 1.5 @ 50ml/hr; no residual noted. HOB at 30 degrees and suction at bedside. Bed is in the lowest position and locked. Call light and bedside table is within reach. No acute distress noted. Will continue plan of cared.
[2020-05-23 20:00] VITALS: BP 117/62
[2020-05-23] MEDS: Dyna-Hex 2% Top Sol 2oz TOPIC SCH (20:30)
[2020-05-23] MEDS: Atorvastatin 20mg tab GT SCH (21:27)
[2020-05-24] VITALS (7 sets, daily range): BP systolic 113–152; BP diastolic 62–88
--- NOTE | 2020-05-24 01:25 | NUR ---
NURSE NOTES: Observed pt resting comfortably in bed. RT put pt back on CPAP per pt's request. Pt stated he sleeps better while on it. No SOB noted. Will continue plan of care.
[2020-05-24 05:59] LABS: BASOPHILS % (AUTO) 0.9 % (0.0-2.0); EOSINOPHILS % (AUTO) 3.2 % (0.0-3.0); HEMATOCRIT 32.7 % (42.0-52.0); HEMOGLOBIN 10.1 G/DL (14.2-18.0); MEAN CORPUSCULAR VOLUME 91 FL (80-99); MONOCYTES % (AUTO) 6.5 % (1.0-10.0); NEUTROPHILS % (AUTO) 77.4 % (45.0-75.0); PLATELET COUNT 430 K/UL (150-450); RED BLOOD COUNT 3.61 M/UL (4.70-6.10); RED CELL DISTRIBUTION WIDTH 15.2 % (11.6-14.8); WHITE BLOOD COUNT 12.6 K/UL (4.8-10.8)
[2020-05-24 06:19] LABS: ALANINE AMINOTRANSFERASE 38 U/L (12-78); ALBUMIN 2.7 G/DL (3.4-5.0); ALBUMIN/GLOBULIN RATIO 0.7 (1.0-2.7); ALKALINE PHOSPHATASE 155 U/L (46-116); AMYLASE 52 U/L (25-115); ANION GAP 3 mmol/L (5-15); ASPARTATE AMINO TRANSFERASE 17 U/L (15-37); BILIRUBIN,TOTAL 0.3 MG/DL (0.2-1.0); BLOOD UREA NITROGEN 22 mg/dL (7-18); CALCIUM 9.2 MG/DL (8.5-10.1); CARBON DIOXIDE 37 MMOL/L (21-32); CHLORIDE 100 MMOL/L (98-107); CREATININE 0.4 MG/DL (0.55-1.30); POTASSIUM 4.5 MMOL/L (3.5-5.1); SODIUM 140 MMOL/L (136-145)
--- NOTE | 2020-05-24 07:07 | General Progress Note ---
Subjective ROS Limited/Unobtainable: No Allergies: Coded Allergies: No Known Allergies (Unverified , 02/05/20) Objective Last 24 Hour Vital Signs Date Time Temp Pulse Resp B/P (MAP) Pulse Ox O2 Delivery O2 Flow Rate FiO2 05/24/20 05:30 90 28 40 05/24/20 04:00 40 05/24/20 04:00 93 05/24/20 04:00 97.5 93 19 143/79 (100) 97 05/24/20 04:00 Mechanical Ventilator 05/24/20 03:25 86 27 40 05/24/20 00:31 40 05/24/20 00:00 70 05/24/20 00:00 Mechanical Ventilator 05/24/20 00:00 97.2 70 19 113/69 (84) 100 05/23/20 23:45 82 28 40 05/23/20 21:27 81 123/71 05/23/20 20:00 T-piece 05/23/20 20:00 76 05/23/20 20:00 97.3 76 20 117/62 (80) 100 05/23/20 20:00 10.0 60 05/23/20 19:30 100 Trach Collar 10.0 60 05/23/20 16:00 97.8 87 19 130/72 (91) 95 05/23/20 16:00 60 05/23/20 16:00 Mechanical Ventilator 05/23/20 15:22 Trach Collar 10.0 60 05/23/20 15:17 106 05/23/20 13:01 74 16 40 05/23/20 12:00 97.2 81 19 123/68 (86) 97 05/23/20 12:00 40 05/23/20 12:00 84 05/23/20 12:00 Mechanical Ventilator 05/23/20 11:25 86 15 40 05/23/20 11:22 131 154/95 05/23/20 09:10 131 36 40 05/23/20 08:48 128 154/95 05/23/20 08:47 128 154/95 05/23/20 08:00 97.3 128 20 154/95 (114) 95 05/23/20 08:00 119 05/23/20 08:00 Mechanical Ventilator 05/23/20 08:00 40 05/23/20 07:09 119 28 40 Intake and Output 05/23/20 05/24/20 19:00 07:00 Intake Total 780 ml 850 ml Output Total 1600 ml 700 ml Balance -820 ml 150 ml Free Water 180 ml 300 ml Tube Feeding 600 ml 550 ml Output Urine Total 1600 ml 700 ml # Bowel Movements 1 Laboratory Tests 05/24/20 05:40: White Blood Count 12.6H, Red Blood Count 3.61L, Hemoglobin 10.1L, Hematocrit 32.7L, Mean Corpuscular Volume 91, Mean Corpuscular Hemoglobin 28.0, Mean Corpuscular Hemoglobin Concent 30.9L, Red Cell Distribution Width 15.2H, Platelet Count 430, Mean Platelet Volume 6.2L, Neutrophils (%) (Auto) 77.4H, Lymphocytes (%) (Auto) 12.0L, Monocytes (%) (Auto) 6.5, Eosinophils (%) (Auto) 3.2H, Basophils (%) (Auto) 0.9, Sodium Level 140, Potassium Level 4.5, Chloride Level 100, Carbon Dioxide Level 37H, Anion Gap 3L, Blood Urea Nitrogen 22H, Creatinine 0.4L, Estimat Glomerular Filtration Rate > 60, Glucose Level 111H, Calcium Level 9.2, Total Bilirubin 0.3, Aspartate Amino Transf (AST/SGOT) 17, Alanine Aminotransferase (ALT/SGPT) 38, Alkaline Phosphatase 155H, Total Protein 6.4, Albumin 2.7L, Globulin 3.7, Albumin/Globulin Ratio 0.7L, Amylase Level 52, Lipase 174 Height (Feet): 5 Height (Inches): 10.00 Weight (Pounds): 243 General Appearance: no apparent distress EENT: normal ENT inspection Neck: supple Cardiovascular: normal rate Respiratory/Chest: decreased breath sounds Extremities: non-tender Assessment/Plan Status: stable, unchanged Assessment/Plan: no event over night has diarrhea GTF abd us>>>reviewed CT>>>reviewed repeat labs on imodium Da Quintero MD May 24, 2020 07:07
--- NOTE | 2020-05-24 07:21 | NUR ---
NURSE HAND-OFF REPORT: Important Events on Shift: No significant changes during shift coordinator. Pt tolerated CPAP well. No SOB noted. Emptied 700ml from [facility]lee this AM. Patient Status: Stable Diet: Glucerna 1.5 Pending Orders: Discharge Pending Results/Labs: AM Labs Pending MD notification: N Latest Vital Signs: Temperature 97.5 , Pulse 90 , B/P 143 /79 , Respiratory Rate 28 , O2 SAT 97 , Mechanical Ventilator, O2 Flow Rate 10.0 . Vital Sign Comment: [] EKG Rhythm: Sinus Rhythm Rhythm change?: N Latest Hassan Fall Score: 35 Fall Risk: Medium Risk Safety Measures: Call light Within Reach, Bed Alarm Zone 2, Side Rails Side Rails x3, Bed position Low and Locked. Fall Precautions: Yellow Socks Patient Fall Education Report given to PRIYANKA Batista.
--- NOTE | 2020-05-24 07:43 | NUR ---
NURSE NOTES: Received report from Divina Berkowitz RN,. Patient sitting in semil-Bird's position, awake and alert, motioning as communication, asking with motion if he is being discharged today. Patient is watching television, bed in lowest position, wheels locked, call light within reach, soft care mattress in place, Brownlee catheter in place, side rails up x 2, Trach in place, G-tube in place running Glucerna 1.5 at 50 cc/hour, in no apparent distress.
--- NOTE | 2020-05-24 07:59 | NUR ---
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 * Inadequate oral intake R/T clinical and respiratory status as evidenced by COVID-19 ++, on continuous BIPAP, prolonged meal refusals, pt is now on TPN, pt orally intubated (03/28), s/p trach placement (04/26), and s/p PEG placement (04/27), now on GT feeds. * Decreased sodium and fat needs r/t HTN and obesity as evidenced by pt w/ cardiac history, elev BP (159/98-> now improved, on BP meds and diuretics), BMI >30, obese per guidelines. (INACTIVE) CURRENT TF:Glucerna 1.5 goal of 50 + Prosource BID ENTERAL NUTRITION RECOMMENDATIONS: Glucerna 1.5 @ 50ml/hr x 24 hrs + Prosource 1pkt BID to provide 1200ml, 1800kcal, 99g +22g prot (121g total prot), 926ml free water * Maintain as tolerated * Con't Prosource 1pkt BID (additional 22g prot) to better meet est prot needs. ADDITIONAL RECOMMENDATIONS: 1) RE-calibrate bed scale- extended adm, multiple floor transfers 2) Monitor BGs closely w/ prednisone-> BG up (171, 05/16) 3) Tbili, LFT's up- now wnl/down 4) Monitor TF tolerance: PEG placed 04/28, cont to increase TF to goal as tolerated 5) Wound healing: Add Michael BID (mix w/ 2-4oz of water) TF @ goal provides 100% RDI, add Vit C 500mg QD, ZnSO4 220mg [id number]
[2020-05-24] MEDS: Eliquis 2.5mg tablet GT SCH ×2 (08:55→17:08)
[2020-05-24] MEDS: Vitamin D 1000 units Tab GT SCH (08:55)
[2020-05-24] MEDS: Lansoprazole 15mg cap GT SCH (08:55)
[2020-05-24] MEDS: Sertraline 100mg tab ORAL SCH (08:56)
[2020-05-24] MEDS: Metoprolol Tartrate 100mg tab ORAL SCH ×2 (08:56→21:01)
--- NOTE | 2020-05-24 09:37 | Surgery Progress Note ---
Surgery Progress Note Subjective Procedure Performed tracheostomy Symptoms: improved, pain absent, tolerating diet, voiding well, passing flatus, BM Additional Comments lft's improved wbc stable no n/v comfortable plan d/c Objective Last 24 Hour Vital Signs Date Time Temp Pulse Resp B/P (MAP) Pulse Ox O2 Delivery O2 Flow Rate FiO2 05/24/20 08:56 56 152/83 05/24/20 08:12 97.1 56 19 152/83 (106) 97 05/24/20 08:00 97.1 56 19 152/83 (106) 97 05/24/20 05:30 90 28 40 05/24/20 04:00 40 05/24/20 04:00 93 05/24/20 04:00 97.5 93 19 143/79 (100) 97 05/24/20 04:00 Mechanical Ventilator 05/24/20 03:25 86 27 40 05/24/20 00:31 40 05/24/20 00:00 70 05/24/20 00:00 Mechanical Ventilator 05/24/20 00:00 97.2 70 19 113/69 (84) 100 05/23/20 23:45 82 28 40 05/23/20 21:27 81 123/71 05/23/20 20:00 T-piece 05/23/20 20:00 76 05/23/20 20:00 97.3 76 20 117/62 (80) 100 05/23/20 20:00 10.0 60 05/23/20 19:30 100 Trach Collar 10.0 60 05/23/20 16:00 97.8 87 19 130/72 (91) 95 05/23/20 16:00 60 05/23/20 16:00 Mechanical Ventilator 05/23/20 15:22 Trach Collar 10.0 60 05/23/20 15:17 106 05/23/20 13:01 74 16 40 05/23/20 12:00 97.2 81 19 123/68 (86) 97 05/23/20 12:00 40 05/23/20 12:00 84 05/23/20 12:00 Mechanical Ventilator 05/23/20 11:25 86 15 40 05/23/20 11:22 131 154/95 I&O Intake and Output 05/23/20 05/24/20 19:00 07:00 Intake Total 780 ml 850 ml Output Total 1600 ml 700 ml Balance -820 ml 150 ml Free Water 180 ml 300 ml Tube Feeding 600 ml 550 ml Output Urine Total 1600 ml 700 ml # Bowel Movements 1 Dressing: dry Wound: clean Cardiovascular: RSR Respiratory: clear, decreased breath sounds Abdomen: soft, non-tender, present bowel sounds, non-distended Extremities: no edema, no tenderness, no cyanosis Laboratory Tests Test 05/24/20 05:40 White Blood Count 12.6 K/UL (4.8-10.8) H Red Blood Count 3.61 M/UL (4.70-6.10) L Hemoglobin 10.1 G/DL (14.2-18.0) L Hematocrit 32.7 % (42.0-52.0) L Mean Corpuscular Volume 91 FL (80-99) Mean Corpuscular Hemoglobin 28.0 PG (27.0-31.0) Mean Corpuscular Hemoglobin Concent 30.9 G/DL (32.0-36.0) L Red Cell Distribution Width 15.2 % (11.6-14.8) H Platelet Count 430 K/UL (150-450) Mean Platelet Volume 6.2 FL (6.5-10.1) L Neutrophils (%) (Auto) 77.4 % (45.0-75.0) H Lymphocytes (%) (Auto) 12.0 % (20.0-45.0) L Monocytes (%) (Auto) 6.5 % (1.0-10.0) Eosinophils (%) (Auto) 3.2 % (0.0-3.0) H Basophils (%) (Auto) 0.9 % (0.0-2.0) Sodium Level 140 MMOL/L (136-145) Potassium Level 4.5 MMOL/L (3.5-5.1) Chloride Level 100 MMOL/L (98-107) Carbon Dioxide Level 37 MMOL/L (21-32) H Anion Gap 3 mmol/L (5-15) L Blood Urea Nitrogen 22 mg/dL (7-18) H Creatinine 0.4 MG/DL (0.55-1.30) L Estimat Glomerular Filtration Rate > 60 mL/min (>60) Glucose Level 111 MG/DL (74-106) H Calcium Level 9.2 MG/DL (8.5-10.1) Total Bilirubin 0.3 MG/DL (0.2-1.0) Aspartate Amino Transf (AST/SGOT) 17 U/L (15-37) Alanine Aminotransferase (ALT/SGPT) 38 U/L (12-78) Alkaline Phosphatase 155 U/L (46-116) H Total Protein 6.4 G/DL (6.4-8.2) Albumin 2.7 G/DL (3.4-5.0) L Globulin 3.7 g/dL Albumin/Globulin Ratio 0.7 (1.0-2.7) L Amylase Level 52 U/L (25-115) Lipase 174 U/L (73-393) Plan Problems: (1) Pneumonia (2) Staphylococcus aureus bacteremia (3) COVID-19 virus infection Assessment & Plan: prior now neg improving (4) Chest pain (5) Hypertension (6) Dehydration (7) Electrolyte imbalance (8) DMII (diabetes mellitus, type 2) (9) Protein malnutrition Assessment & Plan: DAILY ESTIMATED NEEDS: Needs based on Critical care, wound 81kg abw 22-28 kcals/kg 4794-9138 total kcals 1.25-2 g protein/kg 101-162 g total protein 25-30 mL/kg 8198-8247 total fluid mLs NUTRITION DIAGNOSIS: * Increased kcal/prot/micronutrients needs R/T wound healing as evidenced by pt w/ new multiple pressure injuries, 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 * Inadequate oral intake R/T clinical and respiratory status as evidenced by COVID-19 ++, on continuous BIPAP, prolonged meal refusals, pt is now on TPN, pt orally intubated (03/28), s/p trach placement (04/26), and s/p PEG placement (04/27), now on GT feeds. * Decreased sodium and fat needs r/t HTN and obesity as evidenced by pt w/ cardiac history, elev BP (159/98-> now improved, on BP meds and diuretics), BMI >30, obese per guidelines. (INACTIVE) CURRENT TF:Glucerna 1.5 goal of 50 + Prosource BID ENTERAL NUTRITION RECOMMENDATIONS: Glucerna 1.5 @ 50ml/hr x 24 hrs + Prosource 1pkt BID to provide 1200ml, 1800kcal, 99g +22g prot (121g total prot), 926ml free water * Maintain current TF order * Con't Prosource 1pkt BID (additional 22g prot) to better meet est prot needs. ADDITIONAL RECOMMENDATIONS: 1) Maintain calibrated bedscale wts 2) Monitor BGs closely w/ Solumedrol (POC glu wnl at this time) 3) Monitor lytes, replete as needed 4) Monitor TF tolerance: PEG placed 04/28, cont to increase TF to goal as tolerated 5) Wound healing: Add Michael BID (mix w/ 2-4oz of water) TF @ goal provides 100% RDI, add Vit C 500mg QD, ZnSO4 220mg [id number] (10) Respiratory insufficiency Assessment & Plan: 64-year-old male with respiratory insufficiency intubated in an intensive care unit. Patient has been unable to safely wean off ventilatory support. Surgery called to evaluate for tracheostomy. After careful evaluation patient is a candidate for tracheostomy. In the meantime will obtain consent. If consent obtained will proceed with scheduling. Thank you for your participation's care will follow recommendations improving trach okay agitated weaning sedation no n/v cont weaning transition to oral meds via g tube get off drips improving downgraded weaning well more alert and awake responsive will need placement trach collar consideration pending sub acute placement okay for placement cont trach care leave sutures in place as dissolvable recovering well fully awake now tolerating diet d/c planning awaiting placement (11) LFT elevation Assessment & Plan: leukocytosis lfts elevated no n/v US ordered trend labs abx US noted labs improved hold anticoag cont tf trend labs pain improved no n/v/f/c labs improved wbc resolved lft's trending down hold on procedure okay to resume anticoag ct head noted neuro input (12) Abdominal pain Assessment & Plan: episode of acute morgan - resolved within 24hrs intermittent wbc no fevers abd exam benign now intermittent c/o abd pain asking for dilaudid improved overall Booker Rausch May 24, 2020 09:37
--- NOTE | 2020-05-24 09:41 | Pulmonology Progress Note ---
Subjective ROS Limited/Unobtainable: No Interval Events: tolerating CPAP + PSV Constitutional: Reports: other - + vent/trach ; Denies: fever HEENT: Repors: no symptoms Respiratory: Reports: no symptoms, shortness of breath Cardiovascular: Reports: no symptoms Gastrointestinal/Abdominal: Reports: diarrhea; Denies: nausea Psychiatric: Denies: depression Skin: Denies: rash Musculoskeletal: Reports: pain Allergies: Coded Allergies: No Known Allergies (Unverified , 02/05/20) Objective Last 24 Hour Vital Signs Date Time Temp Pulse Resp B/P (MAP) Pulse Ox O2 Delivery O2 Flow Rate FiO2 05/24/20 08:56 56 152/83 05/24/20 08:12 97.1 56 19 152/83 (106) 97 05/24/20 08:00 97.1 56 19 152/83 (106) 97 05/24/20 05:30 90 28 40 05/24/20 04:00 40 05/24/20 04:00 93 05/24/20 04:00 97.5 93 19 143/79 (100) 97 05/24/20 04:00 Mechanical Ventilator 05/24/20 03:25 86 27 40 05/24/20 00:31 40 05/24/20 00:00 70 05/24/20 00:00 Mechanical Ventilator 05/24/20 00:00 97.2 70 19 113/69 (84) 100 05/23/20 23:45 82 28 40 05/23/20 21:27 81 123/71 05/23/20 20:00 T-piece 05/23/20 20:00 76 05/23/20 20:00 97.3 76 20 117/62 (80) 100 05/23/20 20:00 10.0 60 05/23/20 19:30 100 Trach Collar 10.0 60 05/23/20 16:00 97.8 87 19 130/72 (91) 95 05/23/20 16:00 60 05/23/20 16:00 Mechanical Ventilator 05/23/20 15:22 Trach Collar 10.0 60 05/23/20 15:17 106 05/23/20 13:01 74 16 40 05/23/20 12:00 97.2 81 19 123/68 (86) 97 05/23/20 12:00 40 05/23/20 12:00 84 05/23/20 12:00 Mechanical Ventilator 05/23/20 11:25 86 15 40 05/23/20 11:22 131 154/95 Intake and Output 05/23/20 05/24/20 19:00 07:00 Intake Total 780 ml 850 ml Output Total 1600 ml 700 ml Balance -820 ml 150 ml Free Water 180 ml 300 ml Tube Feeding 600 ml 550 ml Output Urine Total 1600 ml 700 ml # Bowel Movements 1 General Appearance: WD/WN, no acute distress HEENT: normocephalic, atraumatic, status post trach Respiratory: chest wall non-tender Cardiovascular: normal rate, regular rhythm Abdomen: normal bowel sounds, soft, non tender, other - obese Extremities: no edema, other - L arm weakness and swelling without redness Neurologic: alert, oriented x 3, normal mood/affect Laboratory Tests 05/24/20 05:40: White Blood Count 12.6H, Red Blood Count 3.61L, Hemoglobin 10.1L, Hematocrit 32.7L, Mean Corpuscular Volume 91, Mean Corpuscular Hemoglobin 28.0, Mean Corpuscular Hemoglobin Concent 30.9L, Red Cell Distribution Width 15.2H, Platelet Count 430, Mean Platelet Volume 6.2L, Neutrophils (%) (Auto) 77.4H, Lymphocytes (%) (Auto) 12.0L, Monocytes (%) (Auto) 6.5, Eosinophils (%) (Auto) 3.2H, Basophils (%) (Auto) 0.9, Sodium Level 140, Potassium Level 4.5, Chloride Level 100, Carbon Dioxide Level 37H, Anion Gap 3L, Blood Urea Nitrogen 22H, Creatinine 0.4L, Estimat Glomerular Filtration Rate > 60, Glucose Level 111H, Calcium Level 9.2, Total Bilirubin 0.3, Aspartate Amino Transf (AST/SGOT) 17, Alanine Aminotransferase (ALT/SGPT) 38, Alkaline Phosphatase 155H, Total Protein 6.4, Albumin 2.7L, Globulin 3.7, Albumin/Globulin Ratio 0.7L, Amylase Level 52, Lipase 174 Current Medications Medications (Trade) Dose Ordered Sig/Dennis Route PRN Reason Start Time Stop Time Status Last Admin Dose Admin Acetaminophen (Tylenol) 650 mg Q4H PRN GT Mild Pain (Pain Scale 1-3) 05/02/20 08:45 06/01/20 08:44 05/08/20 20:28 Apixaban (Eliquis) 5 mg BID GT 05/21/20 09:00 08/19/20 08:59 05/24/20 08:55 Atorvastatin Calcium (Lipitor) 40 mg BEDTIME GT 05/18/20 21:00 08/16/20 20:59 05/23/20 21:27 Barium Sulfate (Varibar Honey) 250 ml NOW PRN MC RAD 05/23/20 11:45 05/26/20 11:36 Barium Sulfate (Varibar [place]) 240 ml NOW PRN MC RAD 05/23/20 11:45 05/26/20 11:36 Barium Sulfate (Varibar Pudding) 230 ml NOW PRN MC RAD 05/23/20 11:45 05/26/20 11:36 Barium Sulfate (Varibar Thin Liquid powder) 148 gm NOW PRN MC RAD 05/23/20 11:45 05/26/20 11:36 Chlorhexidine Gluconate (Marlen-Hex 2%) 1 applic DAILY@2000 TOPIC 03/30/20 20:00 06/28/20 19:59 05/23/20 20:30 Famotidine (Pepcid) 20 mg Q12HR PRN GT HEARTBURN 05/08/20 13:15 06/01/20 15:14 05/13/20 08:52 Hydralazine HCl (Apresoline) 10 mg Q4H PRN IV For High Blood Pressure 03/30/20 12:15 06/28/20 12:14 05/23/20 05:44 Lansoprazole (Prevacid) 30 mg DAILY GT 05/20/20 09:00 06/01/20 08:59 05/24/20 08:55 Lidocaine HCl (Xylocaine Jelly 2%) 1 applic Q6H PRN TOPIC For Pain 05/22/20 10:15 08/20/20 10:14 05/22/20 17:05 Loperamide HCl (Imodium) 2 mg Q6H PRN GT Diarrhea 05/21/20 08:00 06/20/20 07:59 05/23/20 05:42 Metoprolol Tartrate (Lopressor) 100 mg Q12HR ORAL 05/23/20 11:15 08/21/20 20:59 05/24/20 08:56 Ondansetron HCl (Zofran) 4 mg Q6H PRN IVP Nausea & Vomiting 05/16/20 09:45 06/15/20 09:44 05/22/20 21:49 Quetiapine Fumarate (SEROqueL) 50 mg EVERY 8 HOURS GT 05/13/20 14:00 06/11/20 11:59 05/24/20 05:32 Sertraline HCl (Zoloft) 100 mg DAILY ORAL 05/23/20 09:00 06/22/20 08:59 05/24/20 08:56 Vitamin D (Vitamin D) 3,000 unit DAILY GT 05/18/20 09:00 06/17/20 08:59 05/24/20 08:55 Assessment/Plan Assessment/Plan 1.COVID-19 pneumonia. - Completed specific therapies - s/p steroid - s/p bactrim for PJP prophylaxis 2. DVT ppx - s/p Lovenox - added Eliquis 3. Hypertension - On Norvasc 4. Leukocytosis; resolved - ID following - Candidemia documented 03/18/20 5. Elevated LFT; still elevated but downtrending - positive Hep C; treated in the past with IF - Abd US, Abd CT don't show evidence of cholecystitis - Lipase/amylase wnl 6. Respiratory failure -Intubated 03/28/20; s/p tracheostomy 04/25/20 -Gradually weaned off sedation IOV 7. Left UE edema and weakness - CT head w/o contrast -> Negative for acute intracranial bleed or mass effect - seen by neuro - MRI brain per neuro -> however, cannot be done here at [facility] at this time -> Neuro recommends outpatient MRI brain 8. Pneumomediastinum - no PTX - now on T-piece 9. New onset vomiting with R sided abd pain - Abd US, abd CT - Zofran prn n/v - Dw surgery; No indication for surgical intervention at this time 10. Yeast UTI - ID following 11. BCx gram positive rods - ID following 12. Signs of depression - Will add Zoloft 13. Suprapubic pain - will order bladder scan Will wean down FiO2 as tolerated CXR shows bilateral interstitial changes? fibrosis? S/p PEG Off IV fluids On seroquel 50 mg PO TID; On Ativan and Kimberly Plan to discharge today to [facility] Will discontinue PICC line and abx on discharge per ID recs Continue vent support and, and GTF The care of this patient was discussed with my supervising physician Time spent for this encounter was approximately 31 minutes Edilson Marinelli May 24, 2020 09:41
--- NOTE | 2020-05-24 09:42 | NUR ---
*-*DISCHARGE PLANNING*-* PATIENT HAS BEEN REFERRED TO: [facility]IM[facility] P: [phone] S/W JACKY, GAVE ROOM#, PENDING AUTH AND GUTIERREZ FROM INSURANCE.
--- NOTE | 2020-05-24 09:46 | NUR ---
NURSE NOTES: Spoke with Ivonne at case finisher to follow up, to find out the d/c planning. Will check the authorization per case finisher.
--- NOTE | 2020-05-24 12:21 | NUR ---
INSURANCE CLINICALS FAXED TO [employer] T: [phone] #1 F: [phone] AND [employer]:JACQUELINE JAMES T: [phone] F: [phone]
--- NOTE | 2020-05-24 12:25 | NUR ---
Speech Pathology Note (Passy [place] Speaking Valve and Swallow Rx) Outcome of this session (Passy [place] Speaking valve) 1. Pt was placed on trach mask FIO2 60% with Passy [place] Speaking valve around 10:15 this morning and has been tolerating for over 2 hours at this time. 2. Pt was able to demonstrate maximal phonation time 8seconds 10/10 trials at this time. His phonation was clear and able to glide pitch without loss of phonation 3. Pt was able to mobilize his secretion and bring up his secretion to cough and swallow to manage secretion 4. Pt was able to verbally convey his thoughts and feelings to communicate effectively at all time. He was able to use phone devices to communicate in distance. Outcome of session (Dysphagia) The session was carried out through Pass[place] Speaking valve. 1. Pt was able to swallow mashed potato with gravy without overt s.s or tracheal aspiration. He consumed approximately 15 bites. He demonstrated hard double swallow in each bite. 2. Pt was able to take a sip of water (approximately 12 sips) without overt s.s of aspiration or tracheal aspiration to day. 3. Pt was able to demonstrate understanding of swallow safety and aspiration precaution. Summary of Progress: Mr. Horta continued to demonstrate willingness and good spirit to participate in therapeutic activity. He is able to tolerate off vent and using PMSV while he rests in bed. He is able to maintain 96~97% SPO2 with PMSV at 60% FIo2. He was able to tolerate PO diet with me today without tracheal aspiration. Plan for tomorrow: 1. Off Vent to TM around [address] PMSV Remove PMSV as needed 2. Off G tube feeding during a day -Meal breakfast, lunch and dinner, Plan and Recommendation: 1. He will continued to need skilled speech/swallow/Passy [place] Speaking Valve/Voice therapy at his next level of care. 2. He is ready to start PO diet with pureed and [place] thick liquid diet to start off. He should be on trach mask with Pass[place] Speaking Valve during PO diet with aspiration precaution 3. More importantly, he will need multidisciplinary therapeutic approach to get him ready for capping trial for future decannulation to go home. Pt [facility] benefit from [facility] transfer if ultimate goal is to go home. [facility]
[2020-05-24] MEDS ORDERED: Zolpidem 5mg tab ORAL PRN (13:00)
--- NOTE | 2020-05-24 16:33 | Nephrology Progress Note ---
Assessment/Plan Problem List: (1) Dehydration (2) Electrolyte imbalance (3) COVID-19 virus infection (4) Pneumonia (5) DMII (diabetes mellitus, type 2) (6) Protein malnutrition Assessment Azotemia, hypernatremia Hypoalbuminemia Staff Otilia bacteremia COVID-19 isolation, pneumonia, bilateral infiltrate Hypertension Diabetes mellitus History of smoking Plan May 24: Today's labs reviewed. Medication list reviewed. Renal parameters stable. Heart rate improved since Lopressor dose increased. Continue as is. May 23: Status unchanged. Labs reviewed. Patient remains tachycardic. Increase Lopressor to 50 mg twice a day. Blood pressure is stable. Medication list reviewed. May 22: Patient seen. Examined. Discussed with RN. Brownlee is out and voiding well. Labs reviewed. Renal parameters electrolytes stable. Medication list reviewed. Continue as is. May 21: Discussed with RN. Will discontinue Brownlee catheter. Will check for voiding. Meds reviewed. Check labs tomorrow. May 20: Status quo. Full code. Trach to vent. Feeding through GT. Labs re viewed. Medication list reviewed. Abnormal electrolyte addressed. Discussed with RN. May 19: Status quo. Labs reviewed. Medication list reviewed. Continue per consultants. Stable from renal standpoint of view. May 18: Patient seen. Low potassium addressed. Labs and medication list reviewed. Clinically improving. Continue per consultants. May 17: Patient seen. Discussed with RN Zenaida. Patient clinically improved. Liver enzymes and lower. Renal parameters stable. White blood cells within normal limit. Continue per consultants. May 16: Renal parameters stable. Acute elevation in liver function tests White BC with right-sided abdominal pain. Likely acute Karen cystitis. Continue per GI/surgery. Medication list reviewed. Continue to monitor electrolytes and renal parameters. May 15: Labs reviewed. Renal parameters stable. Patient remains full code. Is trached to vent and has PEG. May 14: Labs reviewed. Stable renal parameters. May 13: No labs drawn today. Stable from renal standpoint of view. Continue per consultants. May 12: Labs reviewed. Renal parameters stable. Status quo. Continue per co nsultants. May 11: No labs drawn today. Will check can panel tomorrow. Medication list reviewed. Patient remains full code. Continue per consultants. May 10: Labs reviewed. Serum sodium higher. Renal parameters and electrolytes stable. Medication list reviewed. Continue per consultants. May 09: Labs reviewed. Serum sodium 135. Continue to monitor electrolytes. Medication list reviewed. Continue per current management. May 08: Labs reviewed. Renal parameters stable. Medication list reviewed. Continue per consultants. May 07: No labs drawn today reviewed. Clinically stable. Medication list reviewed. Will check lab tomorrow. Continue per consultants. May 06: Labs reviewed. Renal parameters stable. Continue per consultants. May 05: Labs reviewed. Renal parameters stable. Patient is due to be transferred to SCU. Continue per consultants. Medication list reviewed. May 04: Labs reviewed. Renal parameters stable. Overall status unchanged. Remains full code. Fed through GT tube. Trach to vent. FiO2 45%. Continue per consultants. May 03: No CHEM panel drawn today. Patient clinically stable. Has trach to vent and PEG. Will check lab tomorrow. May 02: Labs reviewed. Status quo. Patient is trached and vented. Also has PEG. Is full code. Stable from renal standpoint of view. May 01: Labs reviewed. Status quo. Patient has trach connected to vent. Has PEG. He is full code. FiO2 50%. April 30: Status quo. Labs reviewed. Renal parameters stable. Medication list reviewed. April 29: Status quo. Received PEG yesterday. Has trach connected to vent. FiO2 40%. Labs reviewed. Medication list reviewed. Continue same April 28: Status quo. Labs reviewed. Renal parameters stable. Patient n.p.o. due for PEG insertion. IV changed to D5 normal saline. Continue per consultants. April 27: Status quo. Labs reviewed. Medication list reviewed. Stable from renal standpoint of view. Abnormal electrolytes addressed. April 26: Patient is now trached and connected to vent. FiO2 70%. Labs reviewed. Renal parameters stable. Medication list reviewed. Continue per consultants. April 25: Status quo. Full code. FiO2 55%. No labs drawn today. Continue to monitor electrolytes and renal parameters. Continue per consultants. April 24: Status quo. Full code. Intubated on ventilator. FiO2 65%. Labs reviewed. Renal parameters and electrolytes stable. April 23: Status unchanged. Full code. Intubated on ventilator. FiO2 75%. Labs reviewed. Renal parameters stable. Continue per consultants. April 22: Labs reviewed. Patient remains intubated on ventilator and full code. FiO2 90%. Day 77 hospitalization. Not much to add from renal standpoint of view April 21: No CHEM panel drawn today. FiO2 60%. Patient full code. Continue per consultants. April 20: Labs reviewed. Renal parameters stable. Patient remains full code. Intubated on ventilator with FiO2 currently at 70%. Continue per consultants. April 19: No labs drawn today. Remains full code on FiO2 of 100%. Continue per consultants. April 18: Status quo. Labs reviewed. Renal parameters stable. April 17: Status quo. Intubated on ventilator. Full code. Labs reviewed. Electrolytes and renal parameters stable. Continue per consultants. April 16: Girlfriend in the room. Patient awake. Intubated. Full code. Labs reviewed. Abnormal electrolyte addressed. Continue per consultants. April 15: Labs reviewed. Electrolytes and renal parameters stable. Patient full code. Continues to be intubated on ventilator. April 14: Status quo. Labs reviewed. Remains intubated on ventilator. Full code. Continue per consultants. April 13: Status quo. Labs reviewed. Renal parameters electrolytes stable. Continue per current treatment plan. April 12: On higher FiO2. Will resume Lasix daily. Continue to monitor electrolytes and renal parameters. Per consultants. April 11: FiO2 went up to 85%. Renal parameters and electrolytes reasonably well-maintained. Will monitor serum potassium. Will give IV Lasix. April 10: Status quo. Labs reviewed. Remains intubated on ventilator with FiO2 of 65%. Remains full code. Stable from renal standpoint to view. Repeat vitamin D level on April 08 pending April 09: Status quo. Labs reviewed. Stable from renal standpoint of view. Continue per consultants. April 08: Discussed with RN. Labs reviewed. Clinically improving. Requires lower PEEP. Continue per pulmonary. Continue to monitor renal parameters. April 07: Remains full code and on ventilator. Labs reviewed. Renal parameters and electrolytes stable. Continue per consultants. Blood pressure marginally improved. April 06: Full code. On ventilator. Blood pressure 80-90 systolic. IV Lasix discontinued. Free water through tube feeding ordered. Continue to monitor electrolytes and serum sodium. Down on fentanyl as possible. Discussed with PRIYANKA Brown. Clonidine patch discontinued. April 05: Status quo. Remains full code. Remains intubated. Labs reviewed. Renal parameters stable. Serum sodium 150 unchanged. Continue per consultants. April 04: Remains intubated and on ventilator. Remains full code. Labs reviewed. Serum sodium 150 unchanged. Renal parameters stable. Continue per ID and pulmonary. April 03: Intubated. On ventilator. Full code. Labs reviewed. Serum sodium 150 unchanged. Continue to monitor renal parameters. Continue per pulmonary and ID. April 02: Full code. On ventilator. Discussed with RN. Serum sodium slightly higher. Will cut down on IV Lasix. Continue per consultants. Continue to monitor renal parameters and electrolytes. April 01: Full code. Remains on ventilator. Labs reviewed. Stable from renal standpoint of view. Continue per consultants. March 31: Full code . Remains intubated on ventilator. Labs reviewed. Patient appears toxic. Discussed with RN. Maintenance IV discontinued. Medication list reviewed. Blood pressure medication stopped due to low blood pressure. Levemir insulin stopped. Continue monitor blood sugar and sliding scale insulin. March 30: Full code. On ventilator. Labs reviewed. Clonidine patch dose increased. Lasix increased. 3% saline 1 time ordered. Continue to monitor electrolytes and renal parameters. March 29: Remains full code. On mechanical ventilation. On tube feeding. Will DC TPN. Will start on maintenance IV fluid. Continue to monitor renal parameters. March 28: On BiPAP. Full code. On TPN. Labs reviewed. Discussed with pharmacy. Continue as is. Watch serum potassium. March 27: Remains on BiPAP. No chemistry panel done today. Full code. On TPN. Will check lab tomorrow. March 26: Remains on BiPAP. Remains on TPN. Labs reviewed. Electrolytes and chemistries within normal limits. Continue as is. March 25: Remains on TPN. Labs reviewed. Discussed with pharmacy. Change IV Protonix to p.o. Continue 3% saline infusion with Lasix. Patient full code. March 24: Continue to be on TPN. Labs are reviewed. Aim to collect electrolytes. Discussed with pharmacy. Continue current consultants. March 23: Continues to be on TPN. Labs reviewed. Electrolytes and chemistries all acceptable. Discussed with pharmacy. Continue current management. March 22: On TPN. Labs reviewed. Low sodium noted. 3% saline to be continued. Continue to monitor electrolytes. Discussed with pharmacy. March 21: On TPN. Labs reviewed. Continue 3% saline and Lasix for mild hyponatremia. Continue TPN as these. Discussed with pharmacy. March 20: Remains on TPN. Labs reviewed. Serum sodium higher on IV Lasix and 3% saline infusion. Continue TPN as is. Continue to monitor renal parameters and electrolytes. Discussed with Dr. Mata March 19: Remains on TPN. Labs reviewed. Serum sodium 128. Will give 3% nieves ine with IV Lasix. Continue to monitor electrolytes. No change in TPN composition. Discussed with pharmacy. March 18: Remains on TPN. Labs reviewed. Discussed with pharmacist. Will give 3 doses of IV Lasix 20 mg every 8 hours. Continue to monitor serum sodium electrolytes uric acid. White blood cells down. Continue per consultants. March 17: On TPN. Labs reviewed. Discussed with pharmacist. Sodium content increase. Continue to monitor CMP. Patient continues to have leukocytosis. March 16: On TPN. Labs reviewed. Discussed with pharmacist. Appropriate changes made. Continue to monitor electrolytes. March 15: Remains on TPN. Labs reviewed. Discussed with pharmacist. Continue per current management. March 14: Remains on TPN. Labs reviewed, stable. Vitamin D level low, replacement ordered. Continue to monitor electrolytes and renal parameters. March 13: Patient remains on TPN. Discussed with pharmacist. TPN's sodium content adjusted. Labs reviewed. Continue to monitor electrolytes. Blood pressure remains stable. Continue per consultants. March 12: Patient on TPN. Labs reviewed. CPK remains elevated. Abnormal electrolytes and high blood sugar discussed with pharmacist and TPN adjusted. Continue to monitor labs. Oral Protonix added. Ibuprofen discontinued. Can continue to monitor electrolytes and chemistries. Levemir for high blood sugar added. March 11: Patient on TPN. Labs as of 11:15 AM is still pending. Continue per current treatment plan. Will check labs and adjust TPN as needed. Continue per consultants. March 10: Patient on TPN. Labs reviewed. Electrolytes overall stable. CPK is elevated. Will monitor electrolyte, CPK level, lipid panel. Continue per consultants. Discussed with pharmacist. Discussed with RN. Nutritional evaluation noted. Previously: D5W 100 cc an hour Monitor electrolytes renal parameters TPN and Intralipid ordered Will follow Continue per consultants Dietary consult requested Subjective ROS Limited/Unobtainable: Yes Objective Objective Last 24 Hour Vital Signs Date Time Temp Pulse Resp B/P (MAP) Pulse Ox O2 Delivery O2 Flow Rate FiO2 05/24/20 15:39 82 05/24/20 14:05 82 31 40 05/24/20 12:00 80 05/24/20 12:00 Trach Collar 10.0 05/24/20 12:00 97.6 89 18 148/88 (108) 95 05/24/20 09:00 101 27 40 05/24/20 08:56 56 152/83 05/24/20 08:12 97.1 56 19 152/83 (106) 97 05/24/20 08:00 97.1 56 19 152/83 (106) 97 05/24/20 08:00 95 05/24/20 08:00 Mechanical Ventilator 05/24/20 08:00 40 05/24/20 07:45 67 29 40 05/24/20 05:30 90 28 40 05/24/20 04:00 40 05/24/20 04:00 93 05/24/20 04:00 97.5 93 19 143/79 (100) 97 05/24/20 04:00 Mechanical Ventilator 05/24/20 03:25 86 27 40 05/24/20 00:31 40 05/24/20 00:00 70 05/24/20 00:00 Mechanical Ventilator 05/24/20 00:00 97.2 70 19 113/69 (84) 100 05/23/20 23:45 82 28 40 05/23/20 21:27 81 123/71 05/23/20 20:00 T-piece 05/23/20 20:00 76 05/23/20 20:00 97.3 76 20 117/62 (80) 100 05/23/20 20:00 10.0 60 05/23/20 19:30 100 Trach Collar 10.0 60 Intake and Output 05/23/20 05/24/20 19:00 07:00 Intake Total 780 ml 900 ml Output Total 1600 ml 700 ml Balance -820 ml 200 ml Free Water 180 ml 300 ml Tube Feeding 600 ml 600 ml Output Urine Total 1600 ml 700 ml # Bowel Movements 1 Current Medications Medications (Trade) Dose Ordered Sig/Dennis Route PRN Reason Start Time Stop Time Status Last Admin Dose Admin Acetaminophen (Tylenol) 650 mg Q4H PRN GT Mild Pain (Pain Scale 1-3) 05/02/20 08:45 06/01/20 08:44 05/08/20 20:28 Apixaban (Eliquis) 5 mg BID GT 05/21/20 09:00 08/19/20 08:59 05/24/20 17:08 Atorvastatin Calcium (Lipitor) 40 mg BEDTIME GT 05/18/20 21:00 08/16/20 20:59 05/23/20 21:27 Barium Sulfate (Varibar Honey) 250 ml NOW PRN MC RAD 05/23/20 11:45 05/26/20 11:36 Barium Sulfate (Varibar [place]) 240 ml NOW PRN MC RAD 05/23/20 11:45 05/26/20 11:36 Barium Sulfate (Varibar Pudding) 230 ml NOW PRN MC RAD 05/23/20 11:45 05/26/20 11:36 Barium Sulfate (Varibar Thin Liquid powder) 148 gm NOW PRN MC RAD 05/23/20 11:45 05/26/20 11:36 Chlorhexidine Gluconate (Marlen-Hex 2%) 1 applic DAILY@2000 TOPIC 03/30/20 20:00 06/28/20 19:59 05/23/20 20:30 Famotidine (Pepcid) 20 mg Q12HR PRN GT HEARTBURN 05/08/20 13:15 06/01/20 15:14 05/13/20 08:52 Hydralazine HCl (Apresoline) 10 mg Q4H PRN IV For High Blood Pressure 03/30/20 12:15 06/28/20 12:14 05/23/20 05:44 Lansoprazole (Prevacid) 30 mg DAILY GT 05/20/20 09:00 06/01/20 08:59 05/24/20 08:55 Lidocaine HCl (Xylocaine Jelly 2%) 1 applic Q6H PRN TOPIC For Pain 05/22/20 10:15 08/20/20 10:14 05/22/20 17:05 Loperamide HCl (Imodium) 2 mg Q6H PRN GT Diarrhea 05/21/20 08:00 06/20/20 07:59 05/23/20 05:42 Metoprolol Tartrate (Lopressor) 100 mg Q12HR ORAL 05/23/20 11:15 08/21/20 20:59 05/24/20 08:56 Ondansetron HCl (Zofran) 4 mg Q6H PRN IVP Nausea & Vomiting 05/16/20 09:45 06/15/20 09:44 05/24/20 15:12 Quetiapine Fumarate (SEROqueL) 50 mg EVERY 8 HOURS GT 05/13/20 14:00 06/11/20 11:59 05/24/20 15:13 Sertraline HCl (Zoloft) 100 mg DAILY ORAL 05/23/20 09:00 06/22/20 08:59 05/24/20 08:56 Vitamin D (Vitamin D) 3,000 unit DAILY GT 05/18/20 09:00 06/17/20 08:59 05/24/20 08:55 Zolpidem Tartrate (Ambien) 5 mg HSPRN PRN ORAL Insomnia 05/24/20 13:00 05/31/20 12:59 Laboratory Tests 05/24/20 05:40: White Blood Count 12.6H, Red Blood Count 3.61L, Hemoglobin 10.1L, Hematocrit 32.7L, Mean Corpuscular Volume 91, Mean Corpuscular Hemoglobin 28.0, Mean Corpuscular Hemoglobin Concent 30.9L, Red Cell Distribution Width 15.2H, Platelet Count 430, Mean Platelet Volume 6.2L, Neutrophils (%) (Auto) 77.4H, Lymphocytes (%) (Auto) 12.0L, Monocytes (%) (Auto) 6.5, Eosinophils (%) (Auto) 3.2H, Basophils (%) (Auto) 0.9, Sodium Level 140, Potassium Level 4.5, Chloride Level 100, Carbon Dioxide Level 37H, Anion Gap 3L, Blood Urea Nitrogen 22H, Creatinine 0.4L, Estimat Glomerular Filtration Rate > 60, Glucose Level 111H, Calcium Level 9.2, Total Bilirubin 0.3, Aspartate Amino Transf (AST/SGOT) 17, Alanine Aminotransferase (ALT/SGPT) 38, Alkaline Phosphatase 155H, Total Protein 6.4, Albumin 2.7L, Globulin 3.7, Albumin/Globulin Ratio 0.7L, Amylase Level 52, Lipase 174 Height (Feet): 5 Height (Inches): 10.00 Weight (Pounds): 243 General Appearance: no apparent distress EENT: other - Trach to vent Cardiovascular: normal rate Respiratory/Chest: decreased breath sounds Abdomen: distended Rubin Cooper MD May 24, 2020 16:33
--- NOTE | 2020-05-24 17:08 | NUR ---
NURSE NOTES: After short trial of trach collar and Passey-Melissa valve, patient requested to be placed back on the CPAP machine. Left message on voicemail of Dr. John Ferreira notifying that patient had been put on a pureed-moist CCHO medium diet with nectar thick liquids and G-Tube feeding limited during evening hours, 2000 to 0500. Left message requesting possible return to previous diet orders.
--- NOTE | 2020-05-24 17:16 | NUR ---
JAVA PERFORMANCE ENGINEER NOTES SPOKE WITH JACKY FROM [facility], TRANSFER IS PENDING AUTHORIZATION FROM THE [employer]. SPOKE WITH LIONEL MCDONALD FROM [facility] MADE AWARE OF OF AUTH PENDING FOR TRANSFER. PER LIONEL THE AUTHORIZATION HAS BEEN SIGNED BY THE [employer] AND WILL BE FAXED TO [facility] SHORTLY. PLACED A CALL TO JACKY UPDATED HIM ON THE AUTHORIZATION. REQUESTED HIM TO CALL ME ONCE THE AUTHORIZATION HAS BEEN RECEIVED.
--- NOTE | 2020-05-24 19:51 | NUR ---
NURSE HAND-OFF REPORT: Important Events on Shift: Trial patient on trach collar, returned patient to CPAP. Patient was able to swallow puree food with speech therapist. Started CCHO pureed-moist diet, however, patient complained of nausea. Returned patient to Glucerna 1.5@50cc/hour. Patient Status: In no apparent; distress. Diet: Glucerna 1.5@50cc/hour, H2O 150cc [id number]. Pending Orders: am labs. Discharge. Pending Results/Labs:am labs, CBC, BMP Pending MD notification:N/A Latest Vital Signs: Temperature 98.7 , Pulse 99 , B/P 138 /78 , Respiratory Rate 21 , O2 SAT 98 , Mechanical Ventilator, O2 Flow Rate 10.0 . Vital Sign Comment: N/A EKG Rhythm: Sinus Rhythm Rhythm change?: N MD Notified?: MD Response: No New Orders Received Latest Hassan Fall Score: 35 Fall Risk: Medium Risk Safety Measures: Call light Within Reach, Bed Alarm Zone 2, Side Rails Side Rails x3, Bed position Low and Locked. Fall Precautions: Yellow Socks Patient Fall Education Report given to Soni Jimenez RN.
--- NOTE | 2020-05-24 19:52 | NUR ---
NURSE NOTES: Report received from PRIYANKA Fleming. Upon assessment pt is observed sleeping, PERRLA with left pupil more brisk than right. 0/10 pain. Flat affect; well groomed appearance. Anxiousness observed. Saturating 100% on Vent settings of 750 Vt 40% fiO2. Vitals WNL. Afebrile. NSR on monitor. G-tube observed to be off. 0 residual noted. Left side weakness noted. ALBERT PICC patent and intact. Brownlee draining to gravity. Bed kept in lowest and locked position. Side rails up x3. Call light within reach. Will monitor.
--- NOTE | 2020-05-24 19:55 | Cardiology Progress Note ---
Assessment/Plan Assessment/Plan Acute covid 19 pneumonia hypoxemia infiltrate bilat bacteremia hypernatremia / hyponatremia mild abn lfts tachy post intubation fever fungemia dvt upper ext right sided abd pain urinary retention intermittentluy on trach collar s/p trach / peg afebrile now hypoxemia unlikely cardiac related back on full dose anticoag due to dvt ue cr is stable d/w shilpi diallo for bp to be transferred to detention care faciliity abd paijn resolved after i/o cath with 1 liter of urine !! Subjective Cardiovascular: Denies: chest pain, lightheadedness, palpitations Respiratory: Denies: shortness of breath Gastrointestinal/Abdominal: Denies: abdominal pain Genitourinary: Denies: burning Objective Last 24 Hour Vital Signs Date Time Temp Pulse Resp B/P (MAP) Pulse Ox O2 Delivery O2 Flow Rate FiO2 05/24/20 18:30 99 21 40 05/24/20 17:00 97 31 40 05/24/20 16:00 Mechanical Ventilator 05/24/20 16:00 98.7 78 20 138/78 (98) 98 05/24/20 15:39 82 05/24/20 14:05 82 31 40 05/24/20 12:00 80 05/24/20 12:00 Trach Collar 10.0 05/24/20 12:00 97.6 89 18 148/88 (108) 95 05/24/20 09:00 101 27 40 05/24/20 08:56 56 152/83 05/24/20 08:12 97.1 56 19 152/83 (106) 97 05/24/20 08:00 97.1 56 19 152/83 (106) 97 05/24/20 08:00 95 05/24/20 08:00 Mechanical Ventilator 05/24/20 08:00 40 05/24/20 07:45 67 29 40 05/24/20 05:30 90 28 40 05/24/20 04:00 40 05/24/20 04:00 93 05/24/20 04:00 97.5 93 19 143/79 (100) 97 05/24/20 04:00 Mechanical Ventilator 05/24/20 03:25 86 27 40 05/24/20 00:31 40 05/24/20 00:00 70 05/24/20 00:00 Mechanical Ventilator 05/24/20 00:00 97.2 70 19 113/69 (84) 100 05/23/20 23:45 82 28 40 05/23/20 21:27 81 123/71 05/23/20 20:00 T-piece 05/23/20 20:00 76 05/23/20 20:00 97.3 76 20 117/62 (80) 100 05/23/20 20:00 10.0 60 General Appearance: no apparent distress Neck: supple Cardiovascular: normal rate Respiratory/Chest: lungs clear Abdomen: normal bowel sounds, non tender, soft Extremities: no swelling Intake and Output 05/23/20 05/24/20 19:00 07:00 Intake Total 780 ml 900 ml Output Total 1600 ml 700 ml Balance -820 ml 200 ml Free Water 180 ml 300 ml Tube Feeding 600 ml 600 ml Output Urine Total 1600 ml 700 ml # Bowel Movements 1 Laboratory Tests Test 05/24/20 05:40 White Blood Count 12.6 K/UL (4.8-10.8) H Red Blood Count 3.61 M/UL (4.70-6.10) L Hemoglobin 10.1 G/DL (14.2-18.0) L Hematocrit 32.7 % (42.0-52.0) L Mean Corpuscular Volume 91 FL (80-99) Mean Corpuscular Hemoglobin 28.0 PG (27.0-31.0) Mean Corpuscular Hemoglobin Concent 30.9 G/DL (32.0-36.0) L Red Cell Distribution Width 15.2 % (11.6-14.8) H Platelet Count 430 K/UL (150-450) Mean Platelet Volume 6.2 FL (6.5-10.1) L Neutrophils (%) (Auto) 77.4 % (45.0-75.0) H Lymphocytes (%) (Auto) 12.0 % (20.0-45.0) L Monocytes (%) (Auto) 6.5 % (1.0-10.0) Eosinophils (%) (Auto) 3.2 % (0.0-3.0) H Basophils (%) (Auto) 0.9 % (0.0-2.0) Sodium Level 140 MMOL/L (136-145) Potassium Level 4.5 MMOL/L (3.5-5.1) Chloride Level 100 MMOL/L (98-107) Carbon Dioxide Level 37 MMOL/L (21-32) H Anion Gap 3 mmol/L (5-15) L Blood Urea Nitrogen 22 mg/dL (7-18) H Creatinine 0.4 MG/DL (0.55-1.30) L Estimat Glomerular Filtration Rate > 60 mL/min (>60) Glucose Level 111 MG/DL (74-106) H Calcium Level 9.2 MG/DL (8.5-10.1) Total Bilirubin 0.3 MG/DL (0.2-1.0) Aspartate Amino Transf (AST/SGOT) 17 U/L (15-37) Alanine Aminotransferase (ALT/SGPT) 38 U/L (12-78) Alkaline Phosphatase 155 U/L (46-116) H Total Protein 6.4 G/DL (6.4-8.2) Albumin 2.7 G/DL (3.4-5.0) L Globulin 3.7 g/dL Albumin/Globulin Ratio 0.7 (1.0-2.7) L Amylase Level 52 U/L (25-115) Lipase 174 U/L (73-393) Objective pt seen persoanlly Manan Awan MD May 24, 2020 19:55
--- NOTE | 2020-05-24 20:00 | NUR ---
NURSE NOTES: PICC line dressing changed. No distress noted.
[2020-05-24] MEDS: Atorvastatin 20mg tab GT SCH (21:00)
[2020-05-24] MEDS: Dyna-Hex 2% Top Sol 2oz TOPIC SCH (21:00)
--- NOTE | 2020-05-24 22:49 | NUR ---
NURSE NOTES: pt resting comfortably with no pain noted. Will monitor.
[2020-05-25] VITALS: BP 127/70
--- NOTE | 2020-05-25 03:54 | NUR ---
NURSE NOTES: Bed bath and oral care provided. No distress noted.
[2020-05-25 04:00] VITALS: BP 145/78
[2020-05-25 04:43] LABS: BASOPHILS % (AUTO) 0.9 % (0.0-2.0); EOSINOPHILS % (AUTO) 3.3 % (0.0-3.0); HEMATOCRIT 31.7 % (42.0-52.0); HEMOGLOBIN 9.8 G/DL (14.2-18.0); LYMPHOCYTES % (AUTO) 13.8 % (20.0-45.0); MEAN CORPUSCULAR VOLUME 90 FL (80-99); MONOCYTES % (AUTO) 8.3 % (1.0-10.0); NEUTROPHILS % (AUTO) 73.7 % (45.0-75.0); PLATELET COUNT 452 K/UL (150-450); RED BLOOD COUNT 3.52 M/UL (4.70-6.10); RED CELL DISTRIBUTION WIDTH 15.1 % (11.6-14.8); WHITE BLOOD COUNT 11.7 K/UL (4.8-10.8)
[2020-05-25 04:48] LABS: ANION GAP 1 mmol/L (5-15); BLOOD UREA NITROGEN 18 mg/dL (7-18); CALCIUM 9.1 MG/DL (8.5-10.1); CARBON DIOXIDE 38 MMOL/L (21-32); CHLORIDE 100 MMOL/L (98-107); CREATININE 0.5 MG/DL (0.55-1.30); POTASSIUM 4.5 MMOL/L (3.5-5.1); SODIUM 139 MMOL/L (136-145)
--- NOTE | 2020-05-25 06:53 | NUR ---
NURSE HAND-OFF REPORT: Important Events on Shift: No changes; Pending discharge per CM Patient Status: Stable Diet: Gluc 1.5 Pending Orders: Pending Results/Labs: Pending MD notification: Latest Vital Signs: Temperature 97.4 , Pulse 76 , B/P 145 /78 , Respiratory Rate 28 , O2 SAT 97 , Mechanical Ventilator, O2 Flow Rate 10.0 . Vital Sign Comment: WNL EKG Rhythm: Sinus Rhythm Rhythm change?: N MD Notified?: -Dr. Chito INTERIANO Response: No New Orders Received Latest Hassan Fall Score: 35 Fall Risk: Medium Risk Safety Measures: Call light Within Reach, Bed Alarm Zone 1, Side Rails Side Rails x3, Bed position Low and Locked. Fall Precautions: Yellow Socks Patient Fall Education Report given to .
--- NOTE | 2020-05-25 07:30 | NUR ---
NURSE NOTES: Received pt from PRIYANKA Gu, pt is awake and alert, pt has trach collar 10 lit Fio2 60%, Pt has g tube in place is working well, pt has Brownlee cath in place is working well. pt has PICC ALBERT is SL. no pain noted at this time. All needs attended, bed is locked and is in the lowest position, call light within easy reach. will continue to monitor.
--- NOTE | 2020-05-25 07:32 | NUR ---
RESPIRATORY NOTE: Placed pt on trach collar with cool aerosol 10L 60%FiO2 ( pt desaturated to 86% when on 40%FiO2). Pt is awake, alert and comfortable in the bed.No Short of breaths or resp distress noted.Vent is standby.RN Afsoon aware. Will continue to monitor.
[2020-05-25 08:00] VITALS: BP 155/78
--- NOTE | 2020-05-25 08:48 | Pulmonology Progress Note ---
Subjective ROS Limited/Unobtainable: Yes Interval Events: tolerating CPAP + PSV Constitutional: Reports: other - + vent/trach ; Denies: fever HEENT: Repors: no symptoms Respiratory: Reports: no symptoms, shortness of breath Cardiovascular: Reports: no symptoms Gastrointestinal/Abdominal: Reports: diarrhea; Denies: nausea Psychiatric: Denies: depression Skin: Denies: rash Musculoskeletal: Reports: pain Allergies: Coded Allergies: No Known Allergies (Unverified , 02/05/20) Objective Last 24 Hour Vital Signs Date Time Temp Pulse Resp B/P (MAP) Pulse Ox O2 Delivery O2 Flow Rate FiO2 05/25/20 08:00 Trach Collar 05/25/20 07:40 85 05/25/20 07:36 10.0 60 05/25/20 07:32 106 26 05/25/20 07:32 94 Trach Collar 10.0 60 05/25/20 04:28 76 28 40 05/25/20 04:00 82 05/25/20 04:00 Mechanical Ventilator 05/25/20 04:00 97.4 80 20 145/78 (100) 97 05/25/20 03:40 78 29 40 05/25/20 00:35 64 20 40 05/25/20 00:00 97.4 71 20 127/70 (89) 97 05/25/20 00:00 Mechanical Ventilator 05/24/20 22:47 62 20 40 05/24/20 21:01 80 125/62 05/24/20 20:47 95 24 40 05/24/20 20:00 77 05/24/20 20:00 97.5 75 20 125/62 (83) 98 05/24/20 20:00 Mechanical Ventilator 05/24/20 18:30 99 21 40 05/24/20 17:00 97 31 40 05/24/20 16:00 Mechanical Ventilator 05/24/20 16:00 98.7 78 20 138/78 (98) 98 05/24/20 15:39 82 05/24/20 14:05 82 31 40 05/24/20 12:00 80 05/24/20 12:00 Trach Collar 10.0 05/24/20 12:00 97.6 89 18 148/88 (108) 95 05/24/20 09:00 101 27 40 05/24/20 08:56 56 152/83 Intake and Output 05/24/20 05/25/20 19:00 07:00 Intake Total 1010 ml 660 ml Balance 1010 ml 660 ml Free Water 460 ml 160 ml Tube Feeding 550 ml 500 ml # Bowel Movements 3 3 General Appearance: WD/WN, no acute distress HEENT: normocephalic, atraumatic, status post trach Respiratory: chest wall non-tender Cardiovascular: normal rate, regular rhythm Abdomen: normal bowel sounds, soft, non tender, other - obese Extremities: no edema, other - L arm weakness and swelling without redness Neurologic: alert, oriented x 3, normal mood/affect Laboratory Tests 05/25/20 04:00: White Blood Count 11.7H, Red Blood Count 3.52L, Hemoglobin 9.8L, Hematocrit 31.7 L, Mean Corpuscular Volume 90, Mean Corpuscular Hemoglobin 27.7, Mean Corpuscular Hemoglobin Concent 30.8L, Red Cell Distribution Width 15.1H, Platelet Count 452H, Mean Platelet Volume 6.2L, Neutrophils (%) (Auto) 73.7, Lymphocytes (%) (Auto) 13.8L, Monocytes (%) (Auto) 8.3, Eosinophils (%) (Auto) 3.3H, Basophils (%) (Auto) 0.9, Sodium Level 139, Potassium Level 4.5, Chloride Level 100, Carbon Dioxide Level 38H, Anion Gap 1L, Blood Urea Nitrogen 18, Creatinine 0.5L, Estimat Glomerular Filtration Rate > 60, Glucose Level 101, Calcium Level 9.1 Current Medications Medications (Trade) Dose Ordered Sig/Dennis Route PRN Reason Start Time Stop Time Status Last Admin Dose Admin Acetaminophen (Tylenol) 650 mg Q4H PRN GT Mild Pain (Pain Scale 1-3) 05/02/20 08:45 06/01/20 08:44 05/08/20 20:28 Apixaban (Eliquis) 5 mg BID GT 05/21/20 09:00 08/19/20 08:59 05/24/20 17:08 Atorvastatin Calcium (Lipitor) 40 mg BEDTIME GT 05/18/20 21:00 08/16/20 20:59 05/24/20 21:00 Barium Sulfate (Varibar Honey) 250 ml NOW PRN MC RAD 05/23/20 11:45 05/26/20 11:36 Barium Sulfate (Varibar [place]) 240 ml NOW PRN MC RAD 05/23/20 11:45 05/26/20 11:36 Barium Sulfate (Varibar Pudding) 230 ml NOW PRN MC RAD 05/23/20 11:45 05/26/20 11:36 Barium Sulfate (Varibar Thin Liquid powder) 148 gm NOW PRN MC RAD 05/23/20 11:45 05/26/20 11:36 Chlorhexidine Gluconate (Marlen-Hex 2%) 1 applic DAILY@2000 TOPIC 03/30/20 20:00 06/28/20 19:59 05/24/20 21:00 Famotidine (Pepcid) 20 mg Q12HR PRN GT HEARTBURN 05/08/20 13:15 06/01/20 15:14 05/13/20 08:52 Hydralazine HCl (Apresoline) 10 mg Q4H PRN IV For High Blood Pressure 03/30/20 12:15 06/28/20 12:14 05/23/20 05:44 Lansoprazole (Prevacid) 30 mg DAILY GT 05/20/20 09:00 06/01/20 08:59 05/24/20 08:55 Lidocaine HCl (Xylocaine Jelly 2%) 1 applic Q6H PRN TOPIC For Pain 05/22/20 10:15 08/20/20 10:14 05/22/20 17:05 Loperamide HCl (Imodium) 2 mg Q6H PRN GT Diarrhea 05/21/20 08:00 06/20/20 07:59 05/23/20 05:42 Metoprolol Tartrate (Lopressor) 100 mg Q12HR ORAL 05/23/20 11:15 08/21/20 20:59 05/24/20 21:01 Ondansetron HCl (Zofran) 4 mg Q6H PRN IVP Nausea & Vomiting 05/16/20 09:45 06/15/20 09:44 05/24/20 15:12 Quetiapine Fumarate (SEROqueL) 50 mg EVERY 8 HOURS GT 05/13/20 14:00 06/11/20 11:59 05/25/20 05:40 Sertraline HCl (Zoloft) 100 mg DAILY ORAL 05/23/20 09:00 06/22/20 08:59 05/24/20 08:56 Vitamin D (Vitamin D) 3,000 unit DAILY GT 05/18/20 09:00 06/17/20 08:59 05/24/20 08:55 Zolpidem Tartrate (Ambien) 5 mg HSPRN PRN ORAL Insomnia 05/24/20 13:00 05/31/20 12:59 Assessment/Plan Assessment/Plan 1.COVID-19 pneumonia. - Completed specific therapies - s/p steroid - s/p bactrim for PJP prophylaxis 2. DVT ppx - s/p Lovenox - added Eliquis 3. Hypertension - On Norvasc 4. Leukocytosis; resolved - ID following - Candidemia documented 03/18/20 5. Elevated LFT; still elevated but downtrending - positive Hep C; treated in the past with IF - Abd US, Abd CT don't show evidence of cholecystitis - Lipase/amylase wnl 6. Respiratory failure -Intubated 03/28/20; s/p tracheostomy 04/25/20 -Gradually weaned off sedation IOV 7. Left UE edema and weakness - CT head w/o contrast -> Negative for acute intracranial bleed or mass effect - seen by neuro - MRI brain per neuro -> however, cannot be done here at [facility] at this time -> Neuro recommends outpatient MRI brain 8. Pneumomediastinum - no PTX - now on T-piece 9. New onset vomiting with R sided abd pain - Abd US, abd CT - Zofran prn n/v - Dw surgery; No indication for surgical intervention at this time 10. Yeast UTI - ID following 11. BCx gram positive rods - ID following 12. Signs of depression - Will add Zoloft 13. Suprapubic pain -> urinary retention - In & out then reinsert Brownlee Will wean down FiO2 as tolerated CXR shows bilateral interstitial changes? fibrosis? S/p PEG Off IV fluids On seroquel 50 mg PO TID; On Ativan and [place] [facility] Continue GTF, PICC line, and vent; discontinue Abx The care of this patient was discussed with my supervising physician Time spent for this encounter was approximately 31 minutes Edilson Marinelli May 25, 2020 08:48 John Mata MD May 25, 2020 10:43
[2020-05-25] MEDS: Sertraline 100mg tab ORAL SCH (09:04)
[2020-05-25] MEDS: Eliquis 2.5mg tablet GT SCH ×2 (09:04→17:00)
[2020-05-25] MEDS: Lansoprazole 15mg cap GT SCH (09:04)
[2020-05-25] MEDS: Vitamin D 1000 units Tab GT SCH (09:05)
[2020-05-25] MEDS: Metoprolol Tartrate 100mg tab ORAL SCH (09:05)
--- NOTE | 2020-05-25 11:20 | Nephrology Progress Note ---
Assessment/Plan Problem List: (1) Dehydration (2) Electrolyte imbalance (3) COVID-19 virus infection (4) Pneumonia (5) DMII (diabetes mellitus, type 2) (6) Protein malnutrition Assessment Azotemia, hypernatremia Hypoalbuminemia Staff Otilia bacteremia COVID-19 isolation, pneumonia, bilateral infiltrate Hypertension Diabetes mellitus History of smoking Plan May 25: Patient seen and examined. Discussed with PRIYANKA"Zenaida". Labs reviewed. Renal parameters and electrolytes stable. Medication list reviewed. Patient is pending placement to subacute. Continue as is. May 24: Today's labs reviewed. Medication list reviewed. Renal parameters stable. Heart rate improved since Lopressor dose increased. Continue as is. May 23: Status unchanged. Labs reviewed. Patient remains tachycardic. Increase Lopressor to 50 mg twice a day. Blood pressure is stable. Medication list reviewed. May 22: Patient seen. Examined. Discussed with RN. Brownlee is out and voiding well. Labs reviewed. Renal parameters electrolytes stable. Medication list reviewed. Continue as is. May 21: Discussed with RN. Will discontinue Brownlee catheter. Will check for voiding. Meds reviewed. Check labs tomorrow. May 20: Status quo. Full code. Trach to vent. Feeding through GT. Labs reviewed. Medication list reviewed. Abnormal electrolyte addressed. Discussed with RN. May 19: Status quo. Labs reviewed. Medication list reviewed. Continue per consultants. Stable from renal standpoint of view. May 18: Patient seen. Low potassium addressed. Labs and medication list reviewed. Clinically improving. Continue per consultants. May 17: Patient seen. Discussed with PRIYANKA Estevez. Patient clinically improved. Liver enzymes and lower. Renal parameters stable. White blood cells within normal limit. Continue per consultants. May 16: Renal parameters stable. Acute elevation in liver function tests White BC with right-sided abdominal pain. Likely acute Karen cystitis. Continue per GI/surgery. Medication list reviewed. Continue to monitor electrolytes and renal parameters. May 15: Labs reviewed. Renal parameters stable. Patient remains full code. Is trached to vent and has PEG. May 14: Labs reviewed. Stable renal parameters. May 13: No labs drawn today. Stable from renal standpoint of view. Continue per consultants. May 12: Labs reviewed. Renal parameters stable. Status quo. Continue per consultants. May 11: No labs drawn today. Will check can panel tomorrow. Medication list reviewed. Patient remains full code. Continue per consultants. May 10: Labs reviewed. Serum sodium higher. Renal parameters and electrolytes stable. Medication list reviewed. Continue per consultants. May 09: Labs reviewed. Serum sodium 135. Continue to monitor electrolytes. Medication list reviewed. Continue per current management. May 08: Labs reviewed. Renal parameters stable. Medication list reviewed. Continue per consultants. May 07: No labs drawn today reviewed. Clinically stable. Medication list reviewed. Will check lab tomorrow. Continue per consultants. May 06: Labs reviewed. Renal parameters stable. Continue per consultants. May 05: Labs reviewed. Renal parameters stable. Patient is due to be transferred to SCU. Continue per consultants. Medication list reviewed. May 04: Labs reviewed. Renal parameters stable. Overall status unchanged. Remains full code. Fed through GT tube. Trach to vent. FiO2 45%. Continue per consultants. May 03: No CHEM panel drawn today. Patient clinically stable. Has trach to vent and PEG. Will check lab tomorrow. May 02: Labs reviewed. Status quo. Patient is trached and vented. Also has PEG. Is full code. Stable from renal standpoint of view. May 01: Labs reviewed. Status quo. Patient has trach connected to vent. Has PEG. He is full code. FiO2 50%. April 30: Status quo. Labs reviewed. Renal parameters stable. Medication list reviewed. April 29: Status quo. Received PEG yesterday. Has trach connected to vent. FiO2 40%. Labs reviewed. Medication list reviewed. Continue same April 28: Status quo. Labs reviewed. Renal parameters stable. Patient n.p.o. due for PEG insertion. IV changed to D5 normal saline. Continue per consultants. April 27: Status quo. Labs reviewed. Medication list reviewed. Stable from renal standpoint of view. Abnormal electrolytes addressed. April 26: Patient is now trached and connected to vent. FiO2 70%. Labs reviewed. Renal parameters stable. Medication list reviewed. Continue per consultants. April 25: Status quo. Full code. FiO2 55%. No labs drawn today. Continue to monitor electrolytes and renal parameters. Continue per consultants. April 24: Status quo. Full code. Intubated on ventilator. FiO2 65%. Labs reviewed. Renal parameters and electrolytes stable. April 23: Status unchanged. Full code. Intubated on ventilator. FiO2 75%. Labs reviewed. Renal parameters stable. Continue per consultants. April 22: Labs reviewed. Patient remains intubated on ventilator and full code. FiO2 90%. Day 77 hospitalization. Not much to add from renal standpoint of view April 21: No CHEM panel drawn today. FiO2 60%. Patient full code. Continue per consultants. April 20: Labs reviewed. Renal parameters stable. Patient remains full code. Intubated on ventilator with FiO2 currently at 70%. Continue per consultants. April 19: No labs drawn today. Remains full code on FiO2 of 100%. Continue per consultants. April 18: Status quo. Labs reviewed. Renal parameters stable. April 17: Status quo. Intubated on ventilator. Full code. Labs reviewed. Electrolytes and renal parameters stable. Continue per consultants. April 16: Girlfriend in the room. Patient awake. Intubated. Full code. Labs reviewed. Abnormal electrolyte addressed. Continue per consultants. April 15: Labs reviewed. Electrolytes and renal parameters stable. Patient full code. Continues to be intubated on ventilator. April 14: Status quo. Labs reviewed. Remains intubated on ventilator. Full code. Continue per consultants. April 13: Status quo. Labs reviewed. Renal parameters electrolytes stable. Continue per current treatment plan. April 12: On higher FiO2. Will resume Lasix daily. Continue to monitor electrolytes and renal parameters. Per consultants. April 11: FiO2 went up to 85%. Renal parameters and electrolytes reasonably well-maintained. Will monitor serum potassium. Will give IV Lasix. April 10: Status quo. Labs reviewed. Remains intubated on ventilator with FiO2 of 65%. Remains full code. Stable from renal standpoint to view. Repeat vitamin D level on April 08 pending April 09: Status quo. Labs reviewed. Stable from renal standpoint of view. Continue per consultants. April 08: Discussed with RN. Labs reviewed. Clinically improving. Requires lower PEEP. Continue per pulmonary. Continue to monitor renal parameters. April 07: Remains full code and on ventilator. Labs reviewed. Renal parameters and electrolytes stable. Continue per consultants. Blood pressure marginally improved. April 06: Full code. On ventilator. Blood pressure 80-90 systolic. IV Lasix discontinued. Free water through tube feeding ordered. Continue to monitor electrolytes and serum sodium. Down on fentanyl as possible. Discussed with RN Kevin. Clonidine patch discontinued. April 05: Status quo. Remains full code. Remains intubated. Labs reviewed. Renal parameters stable. Serum sodium 150 unchanged. Continue per consultants. April 04: Remains intubated and on ventilator. Remains full code. Labs reviewed. Serum sodium 150 unchanged. Renal parameters stable. Continue per ID and pulmonary. April 03: Intubated. On ventilator. Full code. Labs reviewed. Serum sodium 150 unchanged. Continue to monitor renal parameters. Continue per pulmonary and ID. April 02: Full code. On ventilator. Discussed with RN. Serum sodium slightly higher. Will cut down on IV Lasix. Continue per consultants. Continue to monitor renal parameters and electrolytes. April 01: Full code. Remains on ventilator. Labs reviewed. Stable from renal standpoint of view. Continue per consultants. March 31: Full code . Remains intubated on ventilator. Labs reviewed. Patient appears toxic. Discussed with RN. Maintenance IV discontinued. Medication list reviewed. Blood pressure medication stopped due to low blood pressure. Levemir insulin stopped. Continue monitor blood sugar and sliding scale insulin. March 30: Full code. On ventilator. Labs reviewed. Clonidine patch dose increased. Lasix increased. 3% saline 1 time ordered. Continue to monitor electrolytes and renal parameters. March 29: Remains full code. On mechanical ventilation. On tube feeding. Will DC TPN. Will start on maintenance IV fluid. Continue to monitor renal parameters. March 28: On BiPAP. Full code. On TPN. Labs reviewed. Discussed with pharmacy. Continue as is. Watch serum potassium. March 27: Remains on BiPAP. No chemistry panel done today. Full code. On TPN. Will check lab tomorrow. March 26: Remains on BiPAP. Remains on TPN. Labs reviewed. Electrolytes and chemistries within normal limits. Continue as is. March 25: Remains on TPN. Labs reviewed. Discussed with pharmacy. Change IV Protonix to p.o. Continue 3% saline infusion with Lasix. Patient full code. March 24: Continue to be on TPN. Labs are reviewed. Aim to collect electrolytes. Discussed with pharmacy. Continue current consultants. March 23: Continues to be on TPN. Labs reviewed. Electrolytes and chemistries all acceptable. Discussed with pharmacy. Continue current management. March 22: On TPN. Labs reviewed. Low sodium noted. 3% saline to be continued. Continue to monitor electrolytes. Discussed with pharmacy. March 21: On TPN. Labs reviewed. Continue 3% saline and Lasix for mild hyponatremia. Continue TPN as these. Discussed with pharmacy. March 20: Remains on TPN. Labs reviewed. Serum sodium higher on IV Lasix and 3% saline infusion. Continue TPN as is. Continue to monitor renal parameters and electrolytes. Discussed with Dr. Mata March 19: Remains on TPN. Labs reviewed. Serum sodium 128. Will give 3% saline with IV Lasix. Continue to monitor electrolytes. No change in TPN composition. Discussed with pharmacy. March 18: Remains on TPN. Labs reviewed. Discussed with pharmacist. Will give 3 doses of IV Lasix 20 mg every 8 hours. Continue to monitor serum sodium electrolytes uric acid. White blood cells down. Continue per consultants. March 17: On TPN. Labs reviewed. Discussed with pharmacist. Sodium content increase. Continue to monitor CMP. Patient continues to have leukocytosis. March 16: On TPN. Labs reviewed. Discussed with pharmacist. Appropriate changes made. Continue to monitor electrolytes. March 15: Remains on TPN. Labs reviewed. Discussed with pharmacist. Continue per current management. March 14: Remains on TPN. Labs reviewed, stable. Vitamin D level low, repla cement ordered. Continue to monitor electrolytes and renal parameters. March 13: Patient remains on TPN. Discussed with pharmacist. TPN's sodium content adjusted. Labs reviewed. Continue to monitor electrolytes. Blood pressure remains stable. Continue per consultants. March 12: Patient on TPN. Labs reviewed. CPK remains elevated. Abnormal electrolytes and high blood sugar discussed with pharmacist and TPN adjusted. Continue to monitor labs. Oral Protonix added. Ibuprofen discontinued. Can continue to monitor electrolytes and chemistries. Levemir for high blood sugar added. March 11: Patient on TPN. Labs as of 11:15 AM is still pending. Continue per current treatment plan. Will check labs and adjust TPN as needed. Continue per consultants. March 10: Patient on TPN. Labs reviewed. Electrolytes overall stable. CPK is elevated. Will monitor electrolyte, CPK level, lipid panel. Continue per consultants. Discussed with pharmacist. Discussed with RN. Nutritional evaluation noted. Previously: D5W 100 cc an hour Monitor electrolytes renal parameters TPN and Intralipid ordered Will follow Continue per consultants Dietary consult requested Subjective ROS Limited/Unobtainable: Yes Objective Objective Last 24 Hour Vital Signs Date Time Temp Pulse Resp B/P (MAP) Pulse Ox O2 Delivery O2 Flow Rate FiO2 05/25/20 09:05 95 155/78 05/25/20 08:00 97.7 95 28 155/78 (103) 98 05/25/20 08:00 Trach Collar 05/25/20 07:40 85 05/25/20 07:36 10.0 60 05/25/20 07:32 106 26 05/25/20 07:32 94 Trach Collar 10.0 60 05/25/20 04:28 76 28 40 05/25/20 04:00 82 05/25/20 04:00 Mechanical Ventilator 05/25/20 04:00 97.4 80 20 145/78 (100) 97 05/25/20 03:40 78 29 40 05/25/20 00:35 64 20 40 05/25/20 00:00 97.4 71 20 127/70 (89) 97 05/25/20 00:00 Mechanical Ventilator 05/24/20 22:47 62 20 40 05/24/20 21:01 80 125/62 05/24/20 20:47 95 24 40 05/24/20 20:00 77 05/24/20 20:00 97.5 75 20 125/62 (83) 98 05/24/20 20:00 Mechanical Ventilator 05/24/20 18:30 99 21 40 05/24/20 17:00 97 31 40 05/24/20 16:00 Mechanical Ventilator 05/24/20 16:00 98.7 78 20 138/78 (98) 98 05/24/20 15:39 82 05/24/20 14:05 82 31 40 05/24/20 12:00 80 05/24/20 12:00 Trach Collar 10.0 05/24/20 12:00 97.6 89 18 148/88 (108) 95 Intake and Output 05/24/20 05/25/20 19:00 07:00 Intake Total 1010 ml 660 ml Balance 1010 ml 660 ml Free Water 460 ml 160 ml Tube Feeding 550 ml 500 ml # Bowel Movements 3 3 Current Medications Medications (Trade) Dose Ordered Sig/Dennis Route PRN Reason Start Time Stop Time Status Last Admin Dose Admin Acetaminophen (Tylenol) 650 mg Q4H PRN GT Mild Pain (Pain Scale 1-3) 05/02/20 08:45 06/01/20 08:44 05/08/20 20:28 Apixaban (Eliquis) 5 mg BID GT 05/21/20 09:00 08/19/20 08:59 05/25/20 09:04 Atorvastatin Calcium (Lipitor) 40 mg BEDTIME GT 05/18/20 21:00 08/16/20 20:59 05/24/20 21:00 Barium Sulfate (Varibar Honey) 250 ml NOW PRN MC RAD 05/23/20 11:45 05/26/20 11:36 Barium Sulfate (Varibar [place]) 240 ml NOW PRN MC RAD 05/23/20 11:45 05/26/20 11:36 Barium Sulfate (Varibar Pudding) 230 ml NOW PRN MC RAD 05/23/20 11:45 05/26/20 11:36 Barium Sulfate (Varibar Thin Liquid powder) 148 gm NOW PRN MC RAD 05/23/20 11:45 05/26/20 11:36 Chlorhexidine Gluconate (Marlen-Hex 2%) 1 applic DAILY@2000 TOPIC 03/30/20 20:00 06/28/20 19:59 05/24/20 21:00 Famotidine (Pepcid) 20 mg Q12HR PRN GT HEARTBURN 05/08/20 13:15 06/01/20 15:14 05/13/20 08:52 Hydralazine HCl (Apresoline) 10 mg Q4H PRN IV For High Blood Pressure 03/30/20 12:15 06/28/20 12:14 05/23/20 05:44 Lansoprazole (Prevacid) 30 mg DAILY GT 05/20/20 09:00 06/01/20 08:59 05/25/20 09:04 Lidocaine HCl (Xylocaine Jelly 2%) 1 applic Q6H PRN TOPIC For Pain 05/22/20 10:15 08/20/20 10:14 05/22/20 17:05 Loperamide HCl (Imodium) 2 mg Q6H PRN GT Diarrhea 05/21/20 08:00 06/20/20 07:59 05/25/20 09:04 Metoprolol Tartrate (Lopressor) 100 mg Q12HR ORAL 05/23/20 11:15 08/21/20 20:59 05/25/20 09:05 Ondansetron HCl (Zofran) 4 mg Q6H PRN IVP Nausea & Vomiting 05/16/20 09:45 06/15/20 09:44 05/24/20 15:12 Quetiapine Fumarate (SEROqueL) 50 mg EVERY 8 HOURS GT 05/13/20 14:00 06/11/20 11:59 05/25/20 05:40 Sertraline HCl (Zoloft) 100 mg DAILY ORAL 05/23/20 09:00 06/22/20 08:59 05/25/20 09:04 Vitamin D (Vitamin D) 3,000 unit DAILY GT 05/18/20 09:00 06/17/20 08:59 05/25/20 09:05 Zolpidem Tartrate (Ambien) 5 mg HSPRN PRN ORAL Insomnia 05/24/20 13:00 05/31/20 12:59 Laboratory Tests 05/25/20 04:00: White Blood Count 11.7H, Red Blood Count 3.52L, Hemoglobin 9.8L, Hematocrit 31.7L, Mean Corpuscular Volume 90, Mean Corpuscular Hemoglobin 27.7, Mean Corpuscular Hemoglobin Concent 30.8L, Red Cell Distribution Width 15.1H, Platelet Count 452H, Mean Platelet Volume 6.2L, Neutrophils (%) (Auto) 73.7, Lymphocytes (%) (Auto) 13.8L, Monocytes (%) (Auto) 8.3, Eosinophils (%) (Auto) 3.3H, Basophils (%) (Auto) 0.9, Sodium Level 139, Potassium Level 4.5, Chloride Level 100, Carbon Dioxide Level 38H, Anion Gap 1L, Blood Urea Nitrogen 18, Creatinine 0.5L, Estimat Glomerular Filtration Rate > 60, Glucose Level 101, Calcium Level 9.1 Height (Feet): 5 Height (Inches): 10.00 Weight (Pounds): 243 General Appearance: no apparent distress EENT: other - Trach to vent Neck: limited range of motion Cardiovascular: tachycardia Respiratory/Chest: decreased breath sounds Abdomen: distended Rubin Cooper MD May 25, 2020 11:20
[2020-05-25 12:00] VITALS: BP 155/76
--- NOTE | 2020-05-25 13:13 | NUR ---
INSURANCE CLINICALS FAXED TO [employer] T: [phone] #1 F: [phone] [employer] EDUCATOR:JACQUELINE JAMES T: [phone] F: [phone]
--- NOTE | 2020-05-25 13:56 | Surgery Progress Note ---
Surgery Progress Note Subjective Procedure Performed tracheostomy Symptoms: improved, tolerating diet, voiding well, passing flatus, BM Additional Comments no acute events pending placement Objective Last 24 Hour Vital Signs Date Time Temp Pulse Resp B/P (MAP) Pulse Ox O2 Delivery O2 Flow Rate FiO2 05/25/20 13:14 77 29 40 05/25/20 12:00 97.9 72 28 155/76 (102) 100 05/25/20 12:00 Trach Collar 05/25/20 12:00 10.0 60 05/25/20 11:37 67 05/25/20 09:05 95 155/78 05/25/20 08:00 97.7 95 28 155/78 (103) 98 05/25/20 08:00 Trach Collar 05/25/20 07:40 85 05/25/20 07:36 10.0 60 05/25/20 07:32 106 26 05/25/20 07:32 94 Trach Collar 10.0 60 05/25/20 04:28 76 28 40 05/25/20 04:00 82 05/25/20 04:00 Mechanical Ventilator 05/25/20 04:00 97.4 80 20 145/78 (100) 97 05/25/20 03:40 78 29 40 05/25/20 00:35 64 20 40 05/25/20 00:00 97.4 71 20 127/70 (89) 97 05/25/20 00:00 Mechanical Ventilator 05/24/20 22:47 62 20 40 05/24/20 21:01 80 125/62 05/24/20 20:47 95 24 40 05/24/20 20:00 77 05/24/20 20:00 97.5 75 20 125/62 (83) 98 05/24/20 20:00 Mechanical Ventilator 05/24/20 18:30 99 21 40 05/24/20 17:00 97 31 40 05/24/20 16:00 Mechanical Ventilator 05/24/20 16:00 98.7 78 20 138/78 (98) 98 05/24/20 15:39 82 05/24/20 14:05 82 31 40 I&O Intake and Output 05/24/20 05/25/20 19:00 07:00 Intake Total 1010 ml 660 ml Balance 1010 ml 660 ml Free Water 460 ml 160 ml Tube Feeding 550 ml 500 ml # Bowel Movements 3 3 Dressing: dry Wound: clean Cardiovascular: RSR Respiratory: clear, decreased breath sounds Abdomen: soft, non-tender, present bowel sounds, non-distended Extremities: no edema, no tenderness, no cyanosis Laboratory Tests Test 05/25/20 04:00 White Blood Count 11.7 K/UL (4.8-10.8) H Red Blood Count 3.52 M/UL (4.70-6.10) L Hemoglobin 9.8 G/DL (14.2-18.0) L Hematocrit 31.7 % (42.0-52.0) L Mean Corpuscular Volume 90 FL (80-99) Mean Corpuscular Hemoglobin 27.7 PG (27.0-31.0) Mean Corpuscular Hemoglobin Concent 30.8 G/DL (32.0-36.0) L Red Cell Distribution Width 15.1 % (11.6-14.8) H Platelet Count 452 K/UL (150-450) H Mean Platelet Volume 6.2 FL (6.5-10.1) L Neutrophils (%) (Auto) 73.7 % (45.0-75.0) Lymphocytes (%) (Auto) 13.8 % (20.0-45.0) L Monocytes (%) (Auto) 8.3 % (1.0-10.0) Eosinophils (%) (Auto) 3.3 % (0.0-3.0) H Basophils (%) (Auto) 0.9 % (0.0-2.0) Sodium Level 139 MMOL/L (136-145) Potassium Level 4.5 MMOL/L (3.5-5.1) Chloride Level 100 MMOL/L (98-107) Carbon Dioxide Level 38 MMOL/L (21-32) H Anion Gap 1 mmol/L (5-15) L Blood Urea Nitrogen 18 mg/dL (7-18) Creatinine 0.5 MG/DL (0.55-1.30) L Estimat Glomerular Filtration Rate > 60 mL/min (>60) Glucose Level 101 MG/DL (74-106) Calcium Level 9.1 MG/DL (8.5-10.1) Plan Problems: (1) Pneumonia (2) Staphylococcus aureus bacteremia (3) COVID-19 virus infection Assessment & Plan: prior now neg improving (4) Chest pain (5) Hypertension (6) Dehydration (7) Electrolyte imbalance (8) DMII (diabetes mellitus, type 2) (9) Protein malnutrition Assessment & Plan: DAILY ESTIMATED NEEDS: Needs based on Critical care, wound 81kg abw 22-28 kcals/kg 6815-5742 total kcals 1.25-2 g protein/kg 101-162 g total protein 25-30 mL/kg 1631-5438 total fluid mLs NUTRITION DIAGNOSIS: * Increased kcal/prot/micronutrients needs R/T wound healing as evidenced by pt w/ new multiple pressure injuries, 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 * Inadequate oral intake R/T clinical and respiratory status as evidenced by COVID-19 ++, on continuous BIPAP, prolonged meal refusals, pt is now on TPN, pt orally intubated (03/28), s/p trach placement (04/26), and s/p PEG placement (04/27), now on GT feeds. * Decreased sodium and fat needs r/t HTN and obesity as evidenced by pt w/ cardiac history, elev BP (159/98-> now improved, on BP meds and diuretics), BMI >30, obese per guidelines. (INACTIVE) CURRENT TF:Glucerna 1.5 goal of 50 + Prosource BID ENTERAL NUTRITION RECOMMENDATIONS: Glucerna 1.5 @ 50ml/hr x 24 hrs + Prosource 1pkt BID to provide 1200ml, 1800kcal, 99g +22g prot (121g total prot), 926ml free water * Maintain current TF order * Con't Prosource 1pkt BID (additional 22g prot) to better meet est prot needs. ADDITIONAL RECOMMENDATIONS: 1) Maintain calibrated bedscale wts 2) Monitor BGs closely w/ Solumedrol (POC glu wnl at this time) 3) Monitor lytes, replete as needed 4) Monitor TF tolerance: PEG placed 04/28, cont to increase TF to goal as tolerated 5) Wound healing: Add Michael BID (mix w/ 2-4oz of water) TF @ goal provides 100% RDI, add Vit C 500mg QD, ZnSO4 220mg [id number] (10) Respiratory insufficiency Assessment & Plan: 64-year-old male with respiratory insufficiency intubated in an intensive care unit. Patient has been unable to safely wean off ventilatory support. Surgery called to evaluate for tracheostomy. After careful evaluation patient is a candidate for tracheostomy. In the meantime will obtain consent. If consent obtained will proceed with scheduling. Thank you for your participat ion's care will follow recommendations improving trach okay agitated weaning sedation no n/v cont weaning transition to oral meds via g tube get off drips improving downgraded weaning well more alert and awake responsive will need placement trach collar consideration pending sub acute placement okay for placement cont trach care leave sutures in place as dissolvable recovering well fully awake now tolerating diet d/c planning awaiting placement (11) LFT elevation Assessment & Plan: leukocytosis lfts elevated no n/v US ordered trend labs abx US noted labs improved hold anticoag cont tf trend labs pain improved no n/v/f/c labs improved wbc resolved lft's trending down hold on procedure okay to resume anticoag ct head noted neuro input (12) Abdominal pain Assessment & Plan: episode of acute morgan - resolved within 24hrs intermittent wbc no fevers abd exam benign now intermittent c/o abd pain asking for dilaudid improved overall Booker Rausch May 25, 2020 13:56
--- NOTE | 2020-05-25 14:01 | NUR ---
[employer] NOTES SPOKE WITH JACKY FROM [facility], AUTHORIZATION IS PENDING SIGNATURE FROM THE [employer]OPHAMMER OPERATOR. PLACED A CALL LIONEL MCDONALD REQUESTING HER TO CALL [facility] TO CLARIFY THE [facility]. PER LIONEL SHE WILL CALL [facility] AND CALL ME BACK.
--- NOTE | 2020-05-25 15:04 | Infectious Diseases Prog Note ---
Assessment/Plan Assessment/Plan ASSESSMENT AND PLAN: 1. hx staph aureus bacteremia/mssa - s/p tx covid-19 +, hypoxia, sob, chest x-ray worse, ? PE, ? HCAP/aspiration pna trach/vent, joseph pneumomediastinum/subcutaneous emphysema, ? new hcap/aspiration pna e.coli uti, urine yeast likely a colonizer, sepsis, leukocytosis possible cholecystitis, abdominal pain, elevated lft's, abdominal CT and US noted 1/4 diphtheroids blood culture likely contaminant, f/u blood cultures ordered scrotal/penile pain - no cellulitis, + pain - ? urology evaluation - s/p cefepime, flagyl - sputum culture with yeast - likely colonizer, surveillance blood cultures negative - monitor labs and chest x-ray - monitor mild leukocytosis - decreased - continue per primary and consultants 2. covid-19 isolation removed - covid-19 recovered 3. Hypertension history. Blood pressure treatment primary care team. 4. Elevated blood sugars. Blood sugar treatment per primary care team. 5. No known drug allergies. 6. Social history is positive for smoking. 7. Family history is noncontributory. 8. MAR was noted. 9. Case was discussed with RN. 10. Continue treatment per primary consultants. Subjective Constitutional: Reports: other - + trach and vent ; Denies: fever HEENT: Reports: congestion Respiratory: Reports: shortness of breath Cardiovascular: Denies: chest pain Gastrointestinal/Abdominal: Denies: nausea, vomiting, diarrhea Genitourinary: Reports: other - + joseph Neurologic: Denies: headache Psychiatric: Reports: other - NA Skin: Denies: rash Hematologic: Denies: bleeding Musculoskeletal: Denies: pain Allergies: Coded Allergies: No Known Allergies (Unverified , 02/05/20) Objective Last 24 Hour Vital Signs Date Time Temp Pulse Resp B/P (MAP) Pulse Ox O2 Delivery O2 Flow Rate FiO2 05/25/20 13:14 77 29 40 05/25/20 12:00 97.9 72 28 155/76 (102) 100 05/25/20 12:00 Trach Collar 05/25/20 12:00 10.0 60 05/25/20 11:37 67 05/25/20 09:05 95 155/78 05/25/20 08:00 97.7 95 28 155/78 (103) 98 05/25/20 08:00 Trach Collar 05/25/20 07:40 85 05/25/20 07:36 10.0 60 05/25/20 07:32 106 26 05/25/20 07:32 94 Trach Collar 10.0 60 05/25/20 04:28 76 28 40 05/25/20 04:00 82 05/25/20 04:00 Mechanical Ventilator 05/25/20 04:00 97.4 80 20 145/78 (100) 97 05/25/20 03:40 78 29 40 05/25/20 00:35 64 20 40 05/25/20 00:00 97.4 71 20 127/70 (89) 97 05/25/20 00:00 Mechanical Ventilator 05/24/20 22:47 62 20 40 05/24/20 21:01 80 125/62 05/24/20 20:47 95 24 40 05/24/20 20:00 77 05/24/20 20:00 97.5 75 20 125/62 (83) 98 05/24/20 20:00 Mechanical Ventilator 05/24/20 18:30 99 21 40 05/24/20 17:00 97 31 40 05/24/20 16:00 Mechanical Ventilator 05/24/20 16:00 98.7 78 20 138/78 (98) 98 05/24/20 15:39 82 Height (Feet): 5 Height (Inches): 10.00 Weight (Pounds): 243 General Appearance: no acute distress HEENT: normocephalic, atraumatic, anicteric, no JVD, status post trach Respiratory/Chest: no accessory muscle use, crackles/rales - few, rhonchi - bilaterally - few, other - + trach and vent Cardiovascular: normal rate, regular rhythm, no gallop/murmur Abdomen: normal bowel sounds, soft, non tender, no organomegaly, non distended Genitourinary: other - + joseph Extremities: no cyanosis Skin: no rash 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 Note nonvisualization of the left hepatic lobe, spleen, pancreas, abdominal aorta Gallbladder sludge. Negative for biliary ductal dilatation Unremarkable kidneys Liver demonstrates diffusely increased echogenicity, consistent with diffuse hepatocellular disease, most likely fatty change. CT chest: IMPRESSION: There are mild subpleural ground-glass and consolidating infiltrates in the dependent portions of both lower lobes and to lesser degree the upper lobes consistent with bilateral pneumonia. The infiltrates are typical for Covid 19. No evidence of pulmonary embolus. CT abdomen and pelvis: IMPRESSION: 1. Scattered hepatic hypodense lesions, too small to characterize on this examination without intravenous contrast. 2. Colonic diverticulosis without evidence of acute diverticulitis. 3. Scattered enlarged mesenteric lymph nodes, presumably reactive. teral pneumonia. The infiltrates are typical for Covid 19. No evidence of pulmonary embolus. Chest x-ray - 12/19/19 - Indication: Shortness of breath Technique: One view of the chest Comparison: 02/17/2020 Findings: Interim worsening of bilateral infiltrates, particularly on the right. The heart is borderline enlarged. The pleural spaces are clear. Left arm PICC is again demonstrated Impression: Worsening bilateral infiltrates over one day, likely pneumonia CT chest - 02/19/20 - IMPRESSION: Increased extensive patchy ground-glass opacities and densities throughout the lungs, suggestive of Covid 19 infection. Chest x-ray 02/23/20 - Procedure: XRAY Chest 1v As Indication: Reason For Exam: INFECT Technique: One view of the chest Comparison: 02/20/2020 Findings: Allowing for differences in exposure technique, bilateral mid and lower lung infiltrates are probably unchanged. The heart size is normal. The pleural spaces are clear. Impression: Unchanged, over 4 days, findings as above. Chest x-ray - 02/25/20 - FINDINGS: Lungs: Interval slightly worsening bilateral airspace disease. Pleural space: Unremarkable. No pneumothorax. Heart: Unremarkable. No cardiomegaly. Mediastinum: Unremarkable. Bones/joints: Unremarkable. IMPRESSION: Interval slightly worsening bilateral airspace disease. Chest x-ray - 03/02/20 - Procedure: XRAY Chest 1v Indication: Shortness of breath Technique: One view of the chest Comparison: 02/25/2020 Findings: Bilateral interstitial and airspace infiltrates are unchanged. The heart size is normal. Left arm PICC is again demonstrated Impression: Unchanged, over one day, findings as above. Chest x-ray - 03/06/20 - Procedure: XRAY Chest 1v Indication: Shortness of breath Technique: One view of the chest Comparison: 03/02/2020 Findings: Bilateral infiltrates are unchanged. Normal heart size. Pleural spaces are clear Chest x-ray - 03/12/10 - Impression: COMPARISON: Chest radiograph March 06, 2020. FINDINGS/IMPRESSION: Improving basilar infiltrates. Follow chest radiograph recommended. The upper lung finley are clear. No pneumothorax. Stable cardiomegaly. Stable left upper extremity PICC line. anged, over 4 days, findings as above. Chest x-ray - 03/17/20 - Procedure: XRAY Chest 1v Indication: Shortness of breath Technique: One view of the chest Comparison: 03/12/2020 Findings: Left arm PICC is again demonstrated. Infiltrates are unchanged. The heart size is upper limits of normal. Impression: Unchanged, over 5 days, findings as above. Abdominal US - IMPRESSION: 1. Gallbladder is normal. 2. Hepatic steatosis. 3. 1.7 cm cyst right kidney. Impression. Chest x-ray - Procedure: XRAY Chest 1v Indication: Shortness of breath Technique: One view of the chest Comparison: 03/17/2020 Findings: Bilateral right greater than left infiltrates again demonstrated. The heart size is normal. There is a left arm PICC in good position. Impression: Unchanged, over 5 days, findings as above. Chest x-ray - 03/29/20 - Procedure: XRAY Chest 1v Indication: Cough Technique: One view of the chest Comparison: 03/28/2020 Findings: Bilateral infiltrates are unchanged or slightly worse, allowing for differences in exposure technique. The pleural spaces are clear. The heart size is normal. Stable satisfactory position of endotracheal tube, left arm PICC. Orogastric tube has retracted somewhat the position remains satisfactory. Impression: Stable to slightly worse bilateral infiltrates. Otherwise little jacquard loom card changer one day Chest x-ray - 03/31/20 - Procedure: XRAY Chest 1v Indication: Post endotracheal tube repositioning Technique: One view of the chest Comparison: 3 hours earlier Findings: Interim advancement of endotracheal tube, tip projecting approximately 5 cm above the sunny. Interim advancement of orogastric tube as well. Bilateral infiltrates are unchanged. Left arm PICC remains Impression: Improved and now satisfactory tube positions as described. ICU nurse Maeve notified at the time of interpretation Chest x-ray - 04/02/20 - COMPARISON: Chest x-rays dated 03/31/20 and 03/12/20. FINDINGS: Lungs: No significant change in bilateral prominent interstitial markings. The lungs are otherwise clear without focal consolidation. Pleural space: Unremarkable. The costophrenic angles are sharp. No visible pneumothorax. Heart: Unremarkable. No cardiomegaly. Mediastinum: Unremarkable. Bones/joints: Unremarkable. Tubes, lines and devices: Endotracheal tube tip 6.5 cm above the sunny. NG tube tip in the distal stomach. Telemetry leads overlie the thorax. IMPRESSION: No significant change in bilateral prominent interstitial markings. Procedure: XRAY Chest 1v Procedure: XRAY Chest 1v Reason for study: Shortness of breath 04/06/20 - Comparison films: 04/02/2020. FINDINGS: Endotracheal tube and NG tube remain in place. There is worsening of right basilar infiltrates. Some haziness in left lung base unchanged. Cardiac and mediastinal silhouette are within normal limits. CP angles are sharp. The bony thorax appear unremarkable. IMPRESSION: Worsening of right basilar infiltrate. Chest x-ray - 04/09/20 - Procedure: XRAY Chest 1v FILM CXR 1 VIEW INDICATION: Infection COMPARISON: April 05, 2020 FINDINGS: Single frontal view demonstrates a normal cardiomediastinal silhouette. Endotracheal tube in place with tip above the sunny. Elevation of the right hemidiaphragm. Interstitial prominence with bilateral lower lobe infiltrates. Lung bases appear worse from the prior exam. Small right effusion. Right-sided PICC line with tip in the superior vena cava. Enteric tube in place. IMPRESSION: Interstitial prominence and bilateral lower lobe pneumonia with worsening appearance from the prior study. Chest x-ray - 04/12/20 - Procedure: XRAY Chest 1v Indication: Shortness of breath Technique: One view of the chest Comparison: 04/09/2020 Findings: Stable satisfactory tube and line positions. Bilateral infiltrates have worsened slightly since prior study. The heart size is normal. Impression: Worsening bilateral infiltrates, over 3 days Chest x-ray - 04/15/20 - COMPARISON: 02/11/21. FINDINGS: Lungs: There is been no significant change in mild to moderate patchy diffuse bilateral alveolar infiltrates which are most prominent in the lung bases. Pleural space: Unremarkable. No pneumothorax. Heart: Unremarkable. No cardiomegaly. Mediastinum: Unremarkable. Bones/joints: Unremarkable. Tubes, lines and devices: There is an endotracheal tube, right-sided PICC line and NG tube in good position. IMPRESSION: There is been no significant change in mild to moderate patchy diffuse bilateral alveolar infiltrates which are most prominent in the lung bases. Chest x-ray - 04/18/20 - Procedure: XRAY Chest 1v Indication: Cough Technique: One view of the chest Comparison: 04/15/2020 Findings: Less optimal inspiration currently than previously. Stable satisfactory positions of endotracheal and orogastric tubes and right arm PICC. Bilateral infiltrates are again demonstrated, unchanged. Impression: Unchanged, over 3 days, findings as above. Chest x-ray - 04/21/20 - Procedure: XRAY Chest 1v Indication: Dyspnea Technique: One view of the chest Comparison: 04/18/2020 Findings: Stable tube and line positions. Bilateral infiltrates are unchanged Impression: Unchanged, over one day, findings as above. Procedure: XRAY Chest 1v Procedure: XRAY Chest 1v Reason for study: Reason For Exam: SOB Chest x-ray - 04/25/20 - Comparison films: 04/21/2020. FINDINGS: Endotracheal tube, NG tube and right PICC line remain in place. Vascularity is normal. Bilateral infiltrates are unchanged. Cardiac and mediastinal silhouette are within normal limits. CP angles are sharp. The bony thorax appear unremarkable. IMPRESSION: NO SIGNIFICANT CHANGE COMPARED TO PREVIOUS EXAM. Chest x-rasy - 04/30/20 - FINDINGS: Lungs: Bilateral patchy pulmonary opacities concerning for pneumonia, not significantly changed compared to the prior chest x-ray. Pleural space: Unremarkable. The costophrenic angles are sharp. No visible pneumothorax. Heart: Unremarkable. No cardiomegaly. Mediastinum: Unremarkable. Bones/joints: Unremarkable. Tubes, lines and devices: Tracheostomy tube in place, with expected positioning. Telemetry leads overlie the thorax. Right arm PICC with catheter tip in the SVC region. IMPRESSION: Bilateral patchy pulmonary opacities concerning for pneumonia, not significantly changed compared to the prior chest x-ray. Chest x-ray - 05/12/20 - Procedure: XRAY Chest 1v Procedure: XRAY Chest 1v Reason for study: Shortness of breath. Comparison films: 04/30/2020. FINDINGS: Tracheostomy and right PICC line remain in place. There is new pneumomediastinum as well as subcutaneous cutaneous emphysema noted in the right supraclavicular region. Slight increase in diffuse bilateral alveolar densities likely worsening infiltrates and/or edema. Cardiac and mediastinal silhouette are within normal limits. CP angles are sharp. The bony thorax appear unremarkable. IMPRESSION: Slight worsening of bilateral basilar densities, infiltrates and/or edema. New pneumomediastinum and subcutaneous cutaneous air in the right supraclavicular region. Chest x-rasy - 05/14/20 - Procedure: XRAY Chest 1v EXAM: XR Chest, 1 View CLINICAL HISTORY: INFECT TECHNIQUE: Frontal view of the chest. COMPARISON: 05/12/20 FINDINGS: Since the prior examination, there is marked increase in pneumomediastinum as well as soft tissue gas to the chest wall and supraclavicular regions, right greater than left. Redemonstrated appropriately positioned tracheostomy. Tip of right arm PICC is in the SVC. No clear pneumothorax given limitations due to overlying chest wall gas. Extensive bilateral interstitial and airspace infiltrates appear similar to the prior examination, but suspect slight progression in the left upper lobe. IMPRESSION: Increasing pneumomediastinum and chest wall gas. Extensive bilateral pulmonary infiltrates, progressed in the left upper lobe. CT abdomen an pelvis: Impression: Distended gallbladder. Somewhat dense material within the bladder lumen probably represents sludge. However, the possibility that this represents blood should also be considered given the relatively high attenuation. There is also biliary ductal dilatation, without definite downstream obstructive lesion. MRCP may be useful for better characterization Right renal lesion, demonstrating soft tissue attenuation. Possibly a hemorrhagic cyst given cystic appearance on prior study. However, the possibly of solid neoplasm should also be considered. Extensive bilateral basilar pulmonary parenchymal opacification likely related to ongoing pneumonia Small amount of free intraperitoneal fluid Subcutaneous emphysema and pneumomediastinum, also reported on prior chest radiograph Clinical history diverticulosis Gastrostomy Hepatic and left renal cysts Joseph catheter Findings discussed by phone with Dr. Rausch at the time of interpretation Abdominal US: Impression: Very limited exam as described. Note nonvisualization of the left hepatic lobe, spleen, pancreas, abdominal aorta Gallbladder sludge. Negative for biliary ductal dilatation Unremarkable kidneys Liver demonstrates diffusely increased echogenicity, consistent with diffuse hepatocellular disease, most likely fatty change. Chest x-ray - 05/18/20 - Procedure: XRAY Chest 1v Indication: Shortness of breath Technique: One view of the chest Comparison: 05/17/2020 Findings: Subcutaneous emphysema and cervical emphysema appears slightly improved. Pneumomediastinum persists. Bilateral infiltrates are probably unchanged, allowing for lower lung volumes on the current exam. Tracheostomy, right arm PICC are again demonstrated. The heart size is normal. Impression: Slightly decreased subcutaneous emphysema. Otherwise little jacquard loom card changer one day Chest x-ray - 05/20/20 - COMPARISON: 05/18/2020 FINDINGS: Lungs: Unchanged extensive interstitial and airspace opacities throughout the lungs. Pleural space: No pleural effusion. No pneumothorax. Heart: Unremarkable. No cardiomegaly. Soft tissues: Redemonstrated but improved subcutaneous emphysema. Tubes, lines and devices: Tracheostomy cannula and right upper extremity PICC unchanged. IMPRESSION: Unchanged appearance of the lungs. No new acute abnormality. Decreasing subcutaneous emphysema. Microbiology Date/Time Source Procedure Growth Status 05/21/20 06:05 Nasopharynx SARS-CoV-2 Antigen (Rapid)(HAMLET) - Final Complete 05/16/20 20:00 Blood Blood Culture - Preliminary NO GROWTH AFTER 4 DAYS Resulted 05/14/20 07:00 Urine,Clean Catch Urine Culture - Final Escherichia Coli Kat Parapsilosis Complete 04/14/20 16:35 Stool Clostridium difficile Toxin Assay - Final Complete Laboratory Tests Test 05/25/20 04:00 White Blood Count 11.7 K/UL (4.8-10.8) H Red Blood Count 3.52 M/UL (4.70-6.10) L Hemoglobin 9.8 G/DL (14.2-18.0) L Hematocrit 31.7 % (42.0-52.0) L Mean Corpuscular Volume 90 FL (80-99) Mean Corpuscular Hemoglobin 27.7 PG (27.0-31.0) Mean Corpuscular Hemoglobin Concent 30.8 G/DL (32.0-36.0) L Red Cell Distribution Width 15.1 % (11.6-14.8) H Platelet Count 452 K/UL (150-450) H Mean Platelet Volume 6.2 FL (6.5-10.1) L Neutrophils (%) (Auto) 73.7 % (45.0-75.0) Lymphocytes (%) (Auto) 13.8 % (20.0-45.0) L Monocytes (%) (Auto) 8.3 % (1.0-10.0) Eosinophils (%) (Auto) 3.3 % (0.0-3.0) H Basophils (%) (Auto) 0.9 % (0.0-2.0) Sodium Level 139 MMOL/L (136-145) Potassium Level 4.5 MMOL/L (3.5-5.1) Chloride Level 100 MMOL/L (98-107) Carbon Dioxide Level 38 MMOL/L (21-32) H Anion Gap 1 mmol/L (5-15) L Blood Urea Nitrogen 18 mg/dL (7-18) Creatinine 0.5 MG/DL (0.55-1.30) L Estimat Glomerular Filtration Rate > 60 mL/min (>60) Glucose Level 101 MG/DL (74-106) Calcium Level 9.1 MG/DL (8.5-10.1) Current Medications Medications (Trade) Dose Ordered Sig/Dennis Route PRN Reason Start Time Stop Time Status Last Admin Dose Admin Acetaminophen (Tylenol) 650 mg Q4H PRN GT Mild Pain (Pain Scale 1-3) 05/02/20 08:45 06/01/20 08:44 05/08/20 20:28 Apixaban (Eliquis) 5 mg BID GT 05/21/20 09:00 08/19/20 08:59 05/25/20 09:04 Atorvastatin Calcium (Lipitor) 40 mg BEDTIME GT 05/18/20 21:00 08/16/20 20:59 05/24/20 21:00 Barium Sulfate (Varibar Honey) 250 ml NOW PRN MC RAD 05/23/20 11:45 05/26/20 11:36 Barium Sulfate (Varibar Rolla) 240 ml NOW PRN MC RAD 05/23/20 11:45 05/26/20 11:36 Barium Sulfate (Varibar Pudding) 230 ml NOW PRN MC RAD 05/23/20 11:45 05/26/20 11:36 Barium Sulfate (Varibar Thin Liquid powder) 148 gm NOW PRN MC RAD 05/23/20 11:45 05/26/20 11:36 Chlorhexidine Gluconate (Marlen-Hex 2%) 1 applic DAILY@1999 TOPIC 03/30/20 20:00 06/28/20 19:59 05/24/20 21:00 Famotidine (Pepcid) 20 mg Q12HR PRN GT HEARTBURN 05/08/20 13:15 06/01/20 15:14 05/13/20 08:52 Hydralazine HCl (Apresoline) 10 mg Q4H PRN IV For High Blood Pressure 03/30/20 12:15 06/28/20 12:14 05/23/20 05:44 Lansoprazole (Prevacid) 30 mg DAILY GT 05/20/20 09:00 06/01/20 08:59 05/25/20 09:04 Lidocaine HCl (Xylocaine Jelly 2%) 1 applic Q6H PRN TOPIC For Pain 05/22/20 10:15 08/20/20 10:14 05/22/20 17:05 Loperamide HCl (Imodium) 2 mg Q6H PRN GT Diarrhea 05/21/20 08:00 06/20/20 07:59 05/25/20 09:04 Metoprolol Tartrate (Lopressor) 100 mg Q12HR ORAL 05/23/20 11:15 08/21/20 20:59 05/25/20 09:05 Ondansetron HCl (Zofran) 4 mg Q6H PRN IVP Nausea & Vomiting 05/16/20 09:45 06/15/20 09:44 05/24/20 15:12 Quetiapine Fumarate (SEROqueL) 50 mg EVERY 8 HOURS GT 05/13/20 14:00 06/11/20 11:59 05/25/20 14:00 Sertraline HCl (Zoloft) 100 mg DAILY ORAL 05/23/20 09:00 06/22/20 08:59 05/25/20 09:04 Vitamin D (Vitamin D) 3,000 unit DAILY GT 05/18/20 09:00 06/17/20 08:59 05/25/20 09:05 Zolpidem Tartrate (Ambien) 5 mg HSPRN PRN ORAL Insomnia 05/24/20 13:00 05/31/20 12:59 Kisha Salazar MD May 25, 2020 15:04
[2020-05-25 16:00] VITALS: BP 143/76
--- NOTE | 2020-05-25 16:08 | NUR ---
*-*DISCHARGE PLAN*-* PATIENT HAS BEEN ACCEPTED AND WILL BE DISCHARGED TO: [facility] P: [phone] FOR NURSE TO NURSE REPORT ROOM# 228.[facility] SET FOR 5:45PM, S/W HAN [id number]. S/W PATIENTS BROTHEREDNA WHO IS IN AGREEMENT WITH DISCHARGE PLAN.
--- NOTE | 2020-05-25 16:52 | NUR ---
NURSE NOTES: Pt has D/C order, all discharge assessments and instructions done, pt is stable, V/S stable, all belongings are checked with RN and are with pt. pt has PICC and WILSON per order. pt's brother Radha is aware about D/C. Report given to [facility], endorsed plan of care, endorse about CPAP setting and trach collar. took pictures from wound and will uploaded. wounds treatment done as order. waiting for ambulance to pick pt up. will continue close monitoring.
--- NOTE | 2020-05-25 19:29 | NUR ---
NURSE NOTES: ambulance personnel are here, pt is stable, V/S stable, no stress noted, all paper works given to them, endorsed plan of care. ambulance personnel are preparing pt to take. all belongings are with pt.
--- NOTE | 2020-05-25 19:50 | NUR ---
NURSE NOTES: Pt left via ambulance for [facility]. In no apparent distress. Pt waving good bye to nurses and in good spirit.
--- NOTE | 2020-05-25 21:33 | General Progress Note ---
Subjective Allergies: Coded Allergies: No Known Allergies (Unverified , 02/05/20) Subjective above noted seen this am prior to patient discharge awake and responsive denies abd pain on TF Objective Last 24 Hour Vital Signs Date Time Temp Pulse Resp B/P (MAP) Pulse Ox O2 Delivery O2 Flow Rate FiO2 05/25/20 19:00 75 24 40 05/25/20 17:08 77 28 40 05/25/20 16:00 Trach Collar 05/25/20 16:00 97.9 84 28 143/76 (98) 100 05/25/20 15:47 71 05/25/20 15:00 80 26 40 05/25/20 14:00 40 05/25/20 13:14 77 29 40 05/25/20 12:00 97.9 72 28 155/76 (102) 100 05/25/20 12:00 Trach Collar 05/25/20 12:00 10.0 60 05/25/20 11:37 67 05/25/20 09:05 95 155/78 05/25/20 08:00 97.7 95 28 155/78 (103) 98 05/25/20 08:00 Trach Collar 05/25/20 07:40 85 05/25/20 07:36 10.0 60 05/25/20 07:32 106 26 05/25/20 07:32 94 Trach Collar 10.0 60 05/25/20 04:28 76 28 40 05/25/20 04:00 82 05/25/20 04:00 Mechanical Ventilator 05/25/20 04:00 97.4 80 20 145/78 (100) 97 05/25/20 03:40 78 29 40 05/25/20 00:35 64 20 40 05/25/20 00:00 97.4 71 20 127/70 (89) 97 05/25/20 00:00 Mechanical Ventilator 05/24/20 22:47 62 20 40 Intake and Output 05/24/20 05/25/20 19:00 07:00 Intake Total 1010 ml 710 ml Balance 1010 ml 710 ml Free Water 460 ml 160 ml Tube Feeding 550 ml 550 ml # Bowel Movements 3 3 Laboratory Tests 05/25/20 04:00: White Blood Count 11.7H, Red Blood Count 3.52L, Hemoglobin 9.8L, Hematocrit 31.7L, Mean Corpuscular Volume 90, Mean Corpuscular Hemoglobin 27.7, Mean Corpuscular Hemoglobin Concent 30.8L, Red Cell Distribution Width 15.1H, Platelet Count 452H, Mean Platelet Volume 6.2L, Neutrophils (%) (Auto) 73.7, Lymphocytes (%) (Auto) 13.8L, Monocytes (%) (Auto) 8.3, Eosinophils (%) (Auto) 3.3H, Basophils (%) (Auto) 0.9, Sodium Level 139, Potassium Level 4.5, Chloride Level 100, Carbon Dioxide Level 38H, Anion Gap 1L, Blood Urea Nitrogen 18, C reatinine 0.5L, Estimat Glomerular Filtration Rate > 60, Glucose Level 101, Calcium Level 9.1 Height (Feet): 5 Height (Inches): 10.00 Weight (Pounds): 243 Objective NAD NCAT neck (+) trach coarse BS RR abd soft ND (+) PEG No edema awake and responsive Assessment/Plan Status: stable, unchanged Assessment/Plan: Assessment: Dysphagia - s/p PEG COVID PNA, Resp failure - s/p Trach DM h/o Abnormal LFT Hepatitis C Ab (+), PCR (-) Anemia Recommendations Continue GT feeds elevated HOB follow labs [facility] Kourtney Davila MD May 25, 2020 21:33
--- NOTE | 2020-05-29 09:47 | Discharge Summary ---
Discharge Summary Discharge Summary _ Date of admission: 02/05/2020 Date of discharge: 05/25/[address] Mata History of Present Illness and Brief Hospital Course Mr. Horta is a 64-year-old male with no reported significant past medical history who presented to ER for evaluation of chest pain. 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 Patient was given sublingual nitroglycerin. The findings of initial chest x-ray and CT angio of chest were consistent with pneumonia. Blood cultures were drawn and patient was started on broad-spectrum antibiotics. Patient was admitted to the hospital for further management. Patient initially tested negative for COVID-19 via rapid test and PCR. However, the third COVID-19 test was positive a few days later. His blood cultures were positive for Staph aureus. Patient was on antibiotics at this point. Given the findings of bacteremia, TTE/FERNY were recommended but they were held off due to COVID-19 status. Patient received PICC line to continue antibiotics. Patient was planned to be discharged home with home health. However, patient developed fever and acute shortness of breath. On a follow-up chest x-ray and CT of chest, it was evident that patient was having worsening bilateral infiltrates and increased extensive patchy groundglass opacities and densities throughout the lungs, suggestive of COVID-19 infection. Patient was restarted on Decadron and remdesivir due to worsening hypoxia. Patient also required placement of BiPAP. Patient tested negative for HIV test. Given long- term use of BiPAP, patient was started on TPN. Patient was also noted to have gram-negative zack UTI and was treated with antibiotics. Patient was also noted to have elevated LFTs. Patient tested positive for hepatitis C antibody. HCV was not detected on a follow-up PCR. Patient failed multiple attempts at weaning from BiPAP. Due to worsening respiratory failure, patient ended up intubated. After multiple failed attempts at weaning him off of ventilation, it deemed appropriate for the patient to continue ventilation with tracheostomy. TPN was switched to PEG for nutrition. Patient was noted to have left upper extremity swelling. Follow-up venous duplex ultrasound of the arm revealed DVT despite the use of Lovenox. Patient also developed left upper extremity weakness. CT of head was very questionable for slightly more prominent right frontal deep white matter. This could represent an evolving lacunar infarct rather than just a routine deep white matter ischemic change. MRI of the head could not be performed at [facility] by this time. Patient was recommended to continue PT/OT. Patient may need MRI of brain as an outpatient. Patient developed new onset vomiting abdominal pain. Abdominal ultrasound and abdominal CT were evaluated. There was no indication for surgical intervention. Brownlee catheter was replaced with condom catheter. However, patient soon developed urinary retention. A Brownlee catheter was reinserted. Throughout his hospitalization, patient's prognosis fluctuated significantly. Patient was mainly treated for hypoxic respiratory failure secondary to COVID-19 pneumonia, UTI, DVT, and bacteremia. Patient was medically stable for discharge and was discharged to [facility] on 05/25/2020. Consultants: Neurology Nina Zafar, RASHAAD Surgery Dr. Rausch Nephrology Dr. Mccullough Cardiology Dr. Awan Infectious disease Dr. Salazar Gastroenterology Dr. Quintero Discharge Condition Stable Discharge Activity Bedrest Discharge Diet Tube feeding Final diagnoses COVID-19 pneumonia Left subclavian DVT Hypertension Leukocytosis Elevated LFT Acute hypoxemic respiratory failure, s/p trach vent Pneumomediastinum Yeast, E. coli UTI Urinary retention Hypernatremia, hyponatremia Fungemia Staph aureus bacteremia Dehydration Electrolyte imbalance Protein malnutrition Dysphagia, s/p PEG Anemia I have been assigned to dictate discharge summary for this account. Edilson Marinelli May 29, 2020 09:47
--- NOTE | 2020-05-29 10:27 | NUR ---
INSURANCE DC SUMMARY FAXED TO [employer] T: [phone] #1 F: [phone] AND ALFRED DIRECTOR VOICE:JACQUELINE JAMES T: [phone] F: [phone]
== END 2020-05-25 19:50 | DRG 4 ==
LOC: EMR 06:08 → EDBEDREQ 07:45 → EEVIPCON 12:39 → 2E 12:39 → EDBEDREQ 12:58 → 2W 02-18 21:58 → ICU 03-28 10:33 → 2W 05-05 20:00 → 2E 05-10 16:56
PROC: 02HV33Z Insertion of Infusion Device into Superior Vena Cava, Percutaneous Approach (ICD-10-PCS; principal; 2020-02-14)
PROC: XW033E5 Introduction of Remdesivir Anti-infective into Peripheral Vein, Percutaneous Approach, New Technology Group 5 (ICD-10-PCS; 2020-02-19)
PROC: 5A09557 Assistance with Respiratory Ventilation, Greater than 96 Consecutive Hours, Continuous Positive Airway Pressure (ICD-10-PCS; 2020-02-22)
PROC: 0DH63UZ Insertion of Feeding Device into Stomach, Percutaneous Approach (ICD-10-PCS; 2020-02-26)
PROC: 5A1955Z Respiratory Ventilation, Greater than 96 Consecutive Hours (ICD-10-PCS; 2020-03-28)
PROC: 0BH17EZ Insertion of Endotracheal Airway into Trachea, Via Natural or Artificial Opening (ICD-10-PCS; 2020-03-28)
PROC: 0B110F4 Bypass Trachea to Cutaneous with Tracheostomy Device, Open Approach (ICD-10-PCS; 2020-04-26)
DX: U07.1 COVID-19 (principal); J12.82 Pneumonia due to coronavirus disease 2019; A41.9 Sepsis, unspecified organism; J96.01 Acute respiratory failure with hypoxia; I82.B12 Acute embolism and thrombosis of left subclavian vein; E46 Unspecified protein-calorie malnutrition; E87.0 Hyperosmolality and hypernatremia; N39.0 Urinary tract infection, site not specified; B49 Unspecified mycosis; I10 Essential (primary) hypertension; R07.89 Other chest pain; E86.0 Dehydration; E11.9 Type 2 diabetes mellitus without complications; F17.200 Nicotine dependence, unspecified, uncomplicated; R13.10 Dysphagia, unspecified; K59.00 Constipation, unspecified; K57.90 Diverticulosis of intestine, part unspecified, without perforation or abscess without bleeding; E87.8 Other disorders of electrolyte and fluid balance, not elsewhere classified; B96.20 Unspecified Escherichia coli [E. coli] as the cause of diseases classified elsewhere; D64.9 Anemia, unspecified; B95.61 Methicillin susceptible Staphylococcus aureus infection as the cause of diseases classified elsewhere; J98.2 Interstitial emphysema
CPT/HCPCS: 36415; 36569; 36573; 70450; 70470; 71045; 71250; 71275; 74018; 74176; 74177; 76700; 76937; 80048; 80053; 80061; 80076; 80150; 80202; 81003; 82140; 82150; 82164; 82248; 82306; 82550; 82728; 82803; 82962; 82977; 83036; 83520; 83605; 83615; 83690; 83735; 83880; 84100; 84443; 84478; 84484; 84550; 85007; 85025; 85379; 85610; 85651; 85730; 86140; 86635; 86703; 86705; 86709; 86738; 86803; 87040; 87070; 87086; 87181; 87205; 87324; 87340; 87522; 93005; 93306; 93971; 94002; 94003; 94150; 94640; 94660; 96361; 96365; 96367; 96375; 99285; J1815; J2248; J2250; J2405; J2765; J3490; J7030; J7620; J8499; S5561; U0002